=== PATIENT | male | born 1980 ===

== ENCOUNTER 2016-11-27 12:31 | Inpatient (IN) | payer OTHER ==
[2016-11-27 12:31] VITALS: PULSE 66
[2016-11-27 13:03] VITALS: BMI 20.7
[2016-11-27 14:08] LABS: BASO # 0.1 K/uL (0.0-0.2); BASO % 0.6 % (0.0-2.0); EOS # 0.5 K/uL (0.0-0.7); EOS % 4.3 % (0.0-4.0); HEMATOCRIT 30.4 % (35.0-51.0); LYMPH % 17.1 % (20.0-40.0); MEAN CELL VOLUME 87.9 fL (80.0-94.0); MEAN CORPUSCULAR HEMOGLOBIN 27.9 pg (27.0-31.0); MEAN CORPUSCULAR HGB CONC 31.8 g/dL (33.0-37.0); MEAN PLATELET VOLUME 8.5 fL (7.2-11.7); MONO # 0.5 K/uL (0.0-0.8); RED CELL DISTRIBUTION WIDTH 20.2 % (11.5-14.5)
[2016-11-27 14:21] LABS: ALB/GLOB RATIO 1.2 (1.0-2.1); BILIRUBIN,TOTAL 0.5 mg/dL (0.2-1.3); CALCIUM 10.8 mg/dl (8.6-10.4); TOTAL PROTEIN 7.5 g/dL (6.3-8.3)
[2016-11-27 14:24] LABS: POTASSIUM 6.2 mmol/L (3.6-5.2)
[2016-11-27] MEDS ORDERED: (Novolin R) Insulin Human Regular 100 units/ml vial IV STA (14:33)
[2016-11-27] MEDS ORDERED: Sod Polystyrene Sulf 15 gm/60 ml Oral Susp PO STA (14:34)
[2016-11-27] MEDS ORDERED: Sodium Bicarbonate (8.4%) 50 Meq Syringe IVP STA (14:35)
[2016-11-27] MEDS: Albuterol 0.083% Inhal Sol (2.5 mg/3 mL) UD INH SCH ×3 (15:00→15:20)
[2016-11-27] MEDS ORDERED: Albuterol 0.083% Inhal Sol (2.5 mg/3 mL) UD ONE (15:03)
[2016-11-27] MEDS ORDERED: Sod Polystyrene Sulf 15 gm/60 ml Oral Susp ONE (15:18)
[2016-11-27] MEDS ORDERED: Sodium Bicarbonate (8.4%) 50 Meq Syringe ONE (15:20)
[2016-11-27] MEDS ORDERED: (Novolin R) Insulin Human Regular 100 units/ml vial ONE (15:20)
--- NOTE | 2016-11-27 15:38 | RAD ---
PROCEDURE: CHEST RADIOGRAPH, 1 VIEW HISTORY: SOB, cough COMPARISON: 11/14/2016 FINDINGS: LUNGS: Clear. PLEURA: No pneumothorax or pleural fluid seen. CARDIOVASCULAR: Cardiomegaly. Congestive change. Interval CABG. Right central venous dialysis catheter now noted. OSSEOUS STRUCTURES: No significant abnormalities. VISUALIZED UPPER ABDOMEN: Normal. OTHER FINDINGS: None. IMPRESSION: Congestive change without kevan infiltrate or pleural effusion. Possible congestive failure versus fluid overload. The interval CABG and insertion of right central venous dialysis catheter since examination of 11/14/2016.
--- NOTE | 2016-11-27 16:16 | C.PDOC ---
Time Seen by Provider: 11/27/16 14:24 Chief Complaint (Nursing): Shortness Of Breath History Per: Patient Onset/Duration Of Symptoms: Days (1) Current Symptoms Are (Timing): Still Present Quality: Tightness Current Respiratory Medications: See Home Med List Severity: Moderate Associated Symptoms: Fever (?), Productive Cough Additional History Per: Prior Records Past Medical History Reviewed: Historical Data, Nursing Documentation, Vital Signs Vital Signs: Last Vital Signs Temp 97.9 F 11/27/16 12:51 Pulse 68 11/27/16 12:51 Resp 15 11/27/16 13:05 BP 199/63 H 11/27/16 12:51 Pulse Ox 100 11/27/16 13:05 - Medical History PMH: Anemia, Anxiety, Arthritis, Asthma, Atrial Fibrillation, Bronchitis, CAD, Cardia Arrhythmia, CHF, COPD, CVA, Depression, Diabetes, Deep Vein Thrombosis, Gastrointestinal Ulcer, Gall Bladder Disease, HTN, Hypercholesterolemia, Hyperthyroidism, Hypothyroidism, End Stage Renal Disease (on dialysis Sat// Sat.), Chronic Kidney Disease, Seizures Surgical History: CABG (12/2009), Cholecystectomy (2011), Coronary Stent (X3) - [facility] Procedures ABDOMINAL WALL SINOGRAM (12/31/13) C.A.T. SCAN OF ABDOMEN (10/31/13) CENTRAL VENOUS CATHETER PLACEMENT WITH GUIDANCE (02/10/15) DILATE R ANT TIB ART W DRUG-ELUT INTRALUM, PERC (08/12/15) DILATION OF LEFT FEMORAL ARTERY, PERCUTANEOUS APPROACH (07/04/16) DILATION OF RIGHT FEMORAL ARTERY, PERCUTANEOUS APPROACH (08/12/15) DILATION OF RIGHT POPLITEAL ARTERY, PERCUTANEOUS APPROACH (08/12/15) DX ULTRASOUND-HEART (01/05/13) ENTERAL INFUSION OF CONCENTRATED NUT. SUBSTANCES (06/28/13) EXCIS DEBRIDE OF WOUND, INFECT, OR BURN (08/03/14) EXTIRPATION OF MATTER FROM L FEM ART, PERC APPROACH (07/04/16) EXTIRPATION OF MATTER FROM R FEM ART, PERC APPROACH (08/12/15) EXTIRPATION OF MATTER FROM R POPL ART, PERC APPROACH (08/12/15) FLUOROSCOPY OF L LOW EXTREM ART USING L OSM CONTRAST (08/12/15) FLUOROSCOPY OF R LOW EXTREM ART USING L OSM CONTRAST (08/12/15) FREE SKIN GRAFT NEC (08/03/14) HEAD SOFT TISS X-RAY NEC (04/15/13) HEMODIALYSIS (04/28/15) INCIS W REM OF FORIEGN BODY OR DEV FROM SKIN & SUBCUT TISSUE (08/08/13) INSERTION OF INFUSION DEV INTO R SUBCLAV VEIN, PERC APPROACH (01/19/16) INTRODUCE OF OTH THROMBOLYTIC INTO PERIPH ART, PERC APPROACH (08/12/15) LAPAROSCOPIC CHOLECYSTECTOMY (09/21/13) LOC EXC LES METATAR/TAR (06/01/14) PACKED CELL TRANSFUSION (06/01/14) PERCUTAN LIVER ASPIRAT (12/31/13) PERFORMANCE OF URINARY FILTRATION, MULTIPLE (07/19/16) PERFORMANCE OF URINARY FILTRATION, SINGLE (11/06/16) SKIN & SUBQ INCISION NEC (10/24/14) TETANUS TOXOID ADMINIST (06/13/14) VENOUS CATHETERIZATION FOR RENAL DIALYSIS (08/08/13) VENOUS CATHETERIZATION NEC (04/30/13) Family History: States: Unknown Family Hx - Social History Hx Tobacco Use: No Hx Alcohol Use: No Hx Substance Use: No - Immunization History Hx Tetanus Toxoid Vaccination: Yes Hx Influenza Vaccination: Yes Hx Pneumococcal Vaccination: Yes Review Of Systems Except As Marked, All Systems Reviewed And Found Negative. Constitutional: Positive for: Fever Respiratory: Positive for: Cough, Shortness of Breath. Negative for: Hemoptysis Gastrointestinal: Negative for: Vomiting, Abdominal Pain Musculoskeletal: Negative for: Neck Pain Neurological: Negative for: Weakness, Numbness, Headache Physical Exam - Physical Exam Appears: Chronically Ill Skin: Normal Color, Warm, Dry Head: Atraumatic, Normacephalic Eye(s): bilateral: PERRL, EOMI Neck: Normal ROM, Supple Cardiovascular: Rhythm Regular Respiratory: Normal Breath Sounds, No Accessory Muscle Use Gastrointestinal/Abdominal: Soft, No Tenderness Back: No CVA Tenderness Extremity: Other (b/l BKA) Neurological/Psych: Oriented x3 ED Course And Treatment - Laboratory Results Result Diagrams: 11/27/16 14:02 11/27/16 14:02 Lab Interpretation: Abnormal Interpretation Of Abnormal: ESRD with hyperkalemia. Hyperglycemia. ECG: Interpreted By Me, Viewed By Me ECG Rhythm: Sinus Rhythm, Nonspecific Changes ECG Interpretation: Abnormal Interpretation Of ECG: LVH with strain pattern. Rate From EC O2 Sat by Pulse Oximetry: 100 Pulse Ox Interpretation: Normal - Radiology CXR: Viewed By Me, Read By Radiologist CXR Interpretation: Yes: Cardiomegaly, Other (Fluid overload) - Physician Consult Information Physician Contacted: Farooq De Los Santos Outcome Of Conversation: She will dialyze pt today. She recommended holding antibiotics until after dialysis. Progress - Interventions Interventions:: Observation, Oxygen - Medications Administered Inhaled nebulized: Beta-2 agonist Intravenous: Other (Insulin. Sodium bicarb. ) - Data Reviewed Data Reviewed: Lab, Diagnostic imaging, EKG, Old records - Patient Status Patient status: Partially improved - Critical Care Citical Care: Excluding Proc Time Critical Care Time: 45 minutes - Continuity of Care Discussed patient case with:: Patient, ED Nurse, PMD Discussed pt. case with compliance consultant/specialty: Nephrology - Patient Plan Patient Plan: Admission, Telemetry Disposition Discussed With : Sybil Li Comment: She accepted pt on her service. Doctor Will See Patient In The: Hospital - Disposition Disposition: HOSPITALIZED Disposition Time: 16:00 Condition: GUARDED - Clinical Impression Clinical Impression: Uncontrolled diabetes mellitus, Fluid overload, Hyperkalemia, Respiratory tract infection, ESRD needing dialysis
[2016-11-27] MEDS ORDERED: HYDROmorphone 1 mg/ml ISec IVP STA (16:49)
[2016-11-27] MEDS ORDERED: HYDROmorphone 1 mg/ml ISec ONE (16:52)
[2016-11-27] MEDS ORDERED: Home Med 1 UNIT (Atorvastatin [Lipitor] 20 MG) PO SCH (22:00)
[2016-11-27] MEDS: Insulin Detemir 100 units/ml Vial (Levemir) SC SCH (22:48)
[2016-11-27] MEDS: (Novolog) Insulin Aspart, Recombinant 100 u/ml 10 ml vial SC SCH (22:48)
[2016-11-28] MEDS ORDERED: (Novolog) Insulin Aspart, Recombinant 100 u/ml 10 ml vial SC ONE (02:30)
[2016-11-28] MEDS: Levothyroxine 50 MCG TAB PO SCH (05:49)
[2016-11-28] MEDS: (Novolog) Insulin Aspart, Recombinant 100 u/ml 10 ml vial SC SCH ×4 (07:19→21:42)
[2016-11-28] MEDS: Albuterol-Ipratrop 3 mg / 0.5 (3 ml) UD INH SCH ×4 (07:30→19:05)
[2016-11-28 08:10] LABS: CHLORIDE 95 mmol/L (98-107)
[2016-11-28 08:11] LABS: POTASSIUM 4.6 mmol/L (3.6-5.2); SODIUM 138 mmol/L (132-148)
[2016-11-28 08:13] LABS: BILIRUBIN,TOTAL 0.6 mg/dL (0.2-1.3); CARBON DIOXIDE 27 mmol/L (22-30); CHOLESTEROL 92 mg/dL (0-199); GFR AFRICAN-AMERICAN 23
[2016-11-28 08:14] LABS: ALB/GLOB RATIO 1.1 (1.0-2.1); ALKALINE PHOSPHATASE 164 U/L (38-126); AST/SGOT 46 U/L (17-59); BLOOD UREA NITROGEN 37 mg/dL (9-20); CALCIUM 9.1 mg/dl (8.6-10.4); GLUCOSE,RANDOM 92 mg/dL (75-110); TOTAL PROTEIN 6.7 g/dL (6.3-8.3)
[2016-11-28 08:15] LABS: ALT/SGPT < 6 U/L (21-72)
[2016-11-28] MEDS: HYDROmorphone 1 mg/ml ISec IVP PRN ×3 (10:24→22:35)
--- NOTE | 2016-11-28 10:47 | CARD ---
APPROVED REPORT EKG Measurement Heart [id number] <Conclusion> Normal sinus rhythm Left ventricular hypertrophy with QRS widening and repolarization abnormality Abnormal ECG
--- NOTE | 2016-11-28 11:46 | CP.PCM.CON ---
History of Present Illness - History of Present Illness History of Present Illness: 36 year old man with the following chronic medical conditions 1. Severe PVD - s/p bilateral BKA 2. Uncontrolled DM - insulin 3. HTN i- chronic 4. Severe CAD s/p CABG s/p PCI 5. Legal blindness 6. Klienfelters syndrome Presents to [facility] (formerly [facility]) with several days of increased shortness of breath. Past Patient History - Infectious Disease Hx of Infectious Diseases: MRSA - Tetanus Immunizations Tetanus Immunization: >10 years Ago - Past Medical History & Family History Past Medical History?: Yes - Past Social History Smoking Status: Never Smoked - CARDIAC Hx Cardiac Disorders: Yes Hx Atrial Fibrillation: Yes Hx Cardia Arrhythmia: Yes Hx Congestive Heart Failure: Yes Hx Hypercholesterolemia: Yes Hx Hypertension: Yes - PULMONARY Hx Respiratory Disorders: Yes Hx Asthma: Yes Hx Bronchitis: Yes Hx Chronic Obstructive Pulmonary Disease (COPD): Yes - NEUROLOGICAL Hx Alzheimer's Disease: Yes Hx Seizures: Yes - HEENT Hx HEENT Problems: Yes Hx Blind: Yes (legally blind) Hx Cataracts: Yes - RENAL Date of Last Dialysis Treatment: 11/27/16 - ENDOCRINE/METABOLIC Hx Endocrine Disorders: Yes Hx Diabetes Mellitus Type 2: Yes Hx Hyperthyroidism: Yes Hx Hypothyroidism: Yes - HEMATOLOGICAL/ONCOLOGICAL Hx Blood Disorders: Yes Hx Anemia: Yes - INTEGUMENTARY Hx Dermatological Problems: No - MUSCULOSKELETAL/RHEUMATOLOGICAL Hx Musculoskeletal Disorders: Yes Hx Arthritis: Yes Hx Falls: Yes - GASTROINTESTINAL Hx Gastrointestinal Disorders: Yes Hx Gall Bladder Disease: Yes - GENITOURINARY/GYNECOLOGICAL Hx Genitourinary Disorders: No Hx Sexually Transmitted Disorders: No - PSYCHIATRIC Hx Psychophysiologic Disorder: Yes Hx Anxiety: Yes Hx Depression: Yes Hx Substance Use: No - SURGICAL HISTORY Hx Surgeries: Yes Hx Cholecystectomy: Yes (2011) 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/2009) Hx Coronary Stent: Yes (X3) - ANESTHESIA Hx Anesthesia: Yes Hx Anesthesia Reactions: No Hx Malignant Hyperthermia: No Meds Allergies/Adverse Reactions: Allergies Allergy/AdvReac Type Severity Reaction Status Date / Time acetaminophen [From Percocet] Allergy RASH Verified 11/05/16 21:48 atenolol Allergy RASH Verified 11/05/16 21:48 digoxin Allergy RASH Verified 11/05/16 21:48 milk Allergy ITCHING Verified 11/27/16 21:08 morphine Allergy ITCHING Verified 11/05/16 21:48 oxycodone HCl [From Percocet] Allergy RASH Verified 11/05/16 21:48 - Medications Medications: Current Medications Albuterol/Ipratropium (Duoneb 3 Mg/0.5 Mg (3 Ml) Ud) 3 ml INH RQID [facility] Last Admin: 11/28/16 11:04 Dose: Not Given Amlodipine Besylate (Norvasc) 10 mg PO DAILY [facility] Last Admin: 11/28/16 10:24 Dose: 10 mg Aspirin (Aspirin Chewable) 81 mg PO DAILY [facility] Last Admin: 11/28/16 09:51 Dose: 81 mg Calcitriol (Rocaltrol) 0.25 mcg PO DAILY [facility] Last Admin: 11/28/16 09:50 Dose: 0.25 mcg Carvedilol (Coreg) 25 mg PO BID [facility] Last Admin: 11/28/16 09:51 Dose: 25 mg Clopidogrel Bisulfate (Plavix) 75 mg PO DAILY [facility] Last Admin: 11/28/16 09:51 Dose: 75 mg Epoetin Tom (Procrit) 8,000 unit SC TTS [facility] Famotidine (Pepcid) 20 mg PO DAILY [facility] Last Admin: 11/28/16 09:51 Dose: 20 mg Heparin Sodium (Porcine) (Heparin) 4,600 units IVP TTS [facility] Stop: 12/01/16 10:01 Last Admin: 11/27/16 19:47 Dose: 4,600 units Hydralazine HCl (Apresoline) 100 mg PO BID [facility] Last Admin: 11/28/16 09:51 Dose: 100 mg Hydromorphone HCl (Dilaudid) 1 mg IVP Q6H PRN PRN Reason: Pain, moderate (4-7) Last Admin: 11/28/16 10:24 Dose: 1 mg Insulin Aspart (Novolog) 0 unit SC ACHS [facility] PRN Reason: Protocol Last Admin: 11/28/16 11:38 Dose: Not Given Insulin Detemir (Levemir) 10 unit SC HS [facility] Last Admin: 11/27/16 22:48 Dose: 10 unit Isosorbide Mononitrate (Imdur) 60 mg PO DAILY [facility] Last Admin: 11/28/16 09:51 Dose: 60 mg Levothyroxine Sodium (Synthroid) 50 mcg PO DAILY@0630 [facility] Last Admin: 11/28/16 05:49 Dose: 50 mcg Rosuvastatin Calcium (Crestor) 10 mg PO HS [facility] Last Admin: 11/27/16 22:47 Dose: 10 mg Sertraline HCl (Zoloft) 50 mg PO DAILY [facility] Last Admin: 11/28/16 09:51 Dose: 50 mg Physical Exam - Constitutional Appears: Well, Non-toxic - Head Exam Head Exam: ATRAUMATIC - Eye Exam Eye Exam: absent: Scleral icterus (+Legal blindness) - ENT Exam ENT Exam: Mucous Membranes Moist, Normal External Ear Exam - Neck Exam Neck exam: Positive for: Full Rom. Negative for: Thyromegaly - Respiratory Exam Respiratory Exam: Clear to Auscultation Bilateral, NORMAL BREATHING PATTERN - Cardiovascular Exam Cardiovascular Exam: REGULAR RHYTHM, RRR, +S1, +S2, +S4, Systolic Murmur. absent: JVD - GI/Abdominal Exam GI & Abdominal Exam: Normal Bowel Sounds. absent: Organomegaly - Extremities Exam Additional comments: Bilateral BKA - Neurological Exam Neurological exam: Oriented x3 (Delayed affect) Results - Vital Signs Recent Vital Signs: Last Vital Signs Temp 97.9 F 11/28/16 09:06 Pulse 78 11/28/16 09:06 Resp 18 11/28/16 09:06 BP 185/73 H 11/28/16 09:51 Pulse Ox 98 11/28/16 09:06 - Labs Result Diagrams: 11/27/16 14:02 11/28/16 08:00 Labs: Laboratory Results - last 24 hr 11/27/16 11/27/16 11/27/16 17:00 19:18 22:10 Sodium Potassium Chloride Carbon Dioxide Anion Gap BUN Creatinine Est GFR ( Amer) Est GFR (Non-Af Amer) POC Glucose (mg/dL) 264 H 189 H 345 H Random Glucose Calcium Total Bilirubin AST ALT Alkaline Phosphatase Total Creatine Kinase CK-MB (Mass) Troponin I, Quant NT-Pro-B Natriuret Pep Total Protein Albumin Globulin Albumin/Globulin Ratio Triglycerides Cholesterol LDL Cholesterol Direct HDL Cholesterol 11/28/16 11/28/16 11/28/16 02:13 03:36 06:34 Sodium Potassium Chloride Carbon Dioxide Anion Gap BUN Creatinine Est GFR ( Amer) Est GFR (Non-Af Amer) POC Glucose (mg/dL) 410 H* 261 H 89 Random Glucose Calcium Total Bilirubin AST ALT Alkaline Phosphatase Total Creatine Kinase CK-MB (Mass) Troponin I, Quant NT-Pro-B Natriuret Pep Total Protein Albumin Globulin Albumin/Globulin Ratio Triglycerides Cholesterol LDL Cholesterol Direct HDL Cholesterol 11/28/16 11/28/16 08:00 11:01 Sodium 138 Potassium 4.6 Chloride 95 L Carbon Dioxide 27 Anion Gap 21 H BUN 37 H Creatinine 3.6 H Est GFR ( Amer) 23 Est GFR (Non-Af Amer) 19 POC Glucose (mg/dL) 154 H Random Glucose 92 Calcium 9.1 Total Bilirubin 0.6 AST 46 ALT < 6 L D Alkaline Phosphatase 164 H D Total Creatine Kinase < 20 L CK-MB (Mass) 0.27 Troponin I, Quant 0.0160 NT-Pro-B Natriuret Pep 33016 H Total Protein 6.7 Albumin 3.6 Globulin 3.1 Albumin/Globulin Ratio 1.1 Triglycerides 136 D Cholesterol 92 LDL Cholesterol Direct < 30 HDL Cholesterol 29 L - EKG Data EKG Interpreted by: Myself EKG shows normal: Sinus rhythm - Imaging and Cardiology Chest x-ray Status: Image reviewed by me (+Permcath, poor inspirtory effort, Vasc congestion ) Assessment & Plan - Assessment and Plan (Free Text) Assessment: 36 year old man with acute on chronic diastolic CHF ESRD HD Uncontrolled DM Severe coronary artery disease s/p CABG and then subsequent PCI of RCA, now all grafts including MOLINA are close there is no more revascularization options High dose statin and Dual anti platelet therpy Chronic angina stable in the past on nitrates, we have used ranexa successfully in the past Severe PVD s/p Bilateral BKA HTN is chornic and controlled with Coreg, norvasc - Date & Time Date: 11/28/16 Time: 11:43
--- NOTE | 2016-11-28 18:20 | CP.PCM.HP ---
History of Present Illness - History of Present Illness History of Present Illness: came [facility] for chest pain cugh sob and hi k Present on Admission - Present on Admission Any Indicators Present on Admission: Yes Review of Systems - Review of Systems Systems not reviewed;Unavailable: Acuity of Condition - Constitutional Constitutional: Fatigue - EENT Eyes: Blind Spots Ears: As Per HPI Nose/Mouth/Throat: As Per HPI - Cardiovascular Cardiovascular: Chest Pain, Dyspnea - Respiratory Respiratory: Cough, Dyspnea, Wheezing - Gastrointestinal Gastrointestinal: As Per HPI - Genitourinary Genitourinary: As Per HPI - Reproductive: Male Reproductive:Male: As Per HPI - Musculoskeletal Additional comments: s/p javier amputation - Integumentary Integumentary: As Per HPI - Neurological Neurological: Sensory Deficit - Psychiatric Psychiatric: Depression - Endocrine Endocrine: Fatigue - Hematologic/Lymphatic Hematologic: As Per HPI Past Patient History - Infectious Disease Hx of Infectious Diseases: MRSA - Tetanus Immunizations Tetanus Immunization: >10 years Ago - Past Medical History & Family History Past Medical History?: Yes - Past Social History Smoking Status: Never Smoked - CARDIAC Hx Cardiac Disorders: Yes Hx Atrial Fibrillation: Yes Hx Cardia Arrhythmia: Yes Hx Congestive Heart Failure: Yes Hx Hypercholesterolemia: Yes Hx Hypertension: Yes - PULMONARY Hx Respiratory Disorders: Yes Hx Asthma: Yes Hx Bronchitis: Yes Hx Chronic Obstructive Pulmonary Disease (COPD): Yes - NEUROLOGICAL Hx Alzheimer's Disease: Yes Hx Seizures: Yes - HEENT Hx HEENT Problems: Yes Hx Blind: Yes (legally blind) Hx Cataracts: Yes - RENAL Date of Last Dialysis Treatment: 11/27/16 - ENDOCRINE/METABOLIC Hx Endocrine Disorders: Yes Hx Diabetes Mellitus Type 2: Yes Hx Hyperthyroidism: Yes Hx Hypothyroidism: Yes - HEMATOLOGICAL/ONCOLOGICAL Hx Blood Disorders: Yes Hx Anemia: Yes - INTEGUMENTARY Hx Dermatological Problems: No - MUSCULOSKELETAL/RHEUMATOLOGICAL Hx Musculoskeletal Disorders: Yes Hx Arthritis: Yes Hx Falls: Yes - GASTROINTESTINAL Hx Gastrointestinal Disorders: Yes Hx Gall Bladder Disease: Yes - GENITOURINARY/GYNECOLOGICAL Hx Genitourinary Disorders: No Hx Sexually Transmitted Disorders: No - PSYCHIATRIC Hx Psychophysiologic Disorder: Yes Hx Anxiety: Yes Hx Depression: Yes Hx Substance Use: No - SURGICAL HISTORY Hx Surgeries: Yes Hx Cholecystectomy: Yes (2011) 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/2009) Hx Coronary Stent: Yes (X3) - ANESTHESIA Hx Anesthesia: Yes Hx Anesthesia Reactions: No Hx Malignant Hyperthermia: No Meds Allergies/Adverse Reactions: Allergies Allergy/AdvReac Type Severity Reaction Status Date / Time acetaminophen [From Percocet] Allergy RASH Verified 11/05/16 21:48 atenolol Allergy RASH Verified 11/05/16 21:48 digoxin Allergy RASH Verified 11/05/16 21:48 milk Allergy ITCHING Verified 11/27/16 21:08 morphine Allergy ITCHING Verified 11/05/16 21:48 oxycodone HCl [From Percocet] Allergy RASH Verified 11/05/16 21:48 Physical Exam - Constitutional Appears: Non-toxic - Head Exam Head Exam: NORMAL INSPECTION - Eye Exam Eye Exam: Conjunctival injection Additional comments: legaly blind - ENT Exam ENT Exam: Mucous Membranes Dry - Neck Exam Neck exam: Positive for: Normal Inspection - Respiratory Exam Respiratory Exam: Decreased Breath Sounds, Rales - Cardiovascular Exam Cardiovascular Exam: REGULAR RHYTHM - GI/Abdominal Exam GI & Abdominal Exam: Normal Bowel Sounds - Rectal Exam Rectal Exam: NORMAL INSPECTION - Extremities Exam Additional comments: javier amputation - Back Exam Back exam: CVA tenderness (L) - Neurological Exam Neurological exam: Oriented x3 - Psychiatric Exam Psychiatric exam: Normal Mood - Skin Skin Exam: Dry Results - Vital Signs Recent Vital Signs: Last Vital Signs Temp 98.0 F 11/28/16 17:16 Pulse 74 11/28/16 17:16 Resp 20 11/28/16 17:16 BP 123/84 11/28/16 17:48 Pulse Ox 96 11/28/16 17:16 - Labs Result Diagrams: 11/27/16 14:02 11/28/16 08:00 Labs: Laboratory Results - last 24 hr 11/27/16 11/27/16 11/28/16 19:18 22:10 02:13 Sodium Potassium Chloride Carbon Dioxide Anion Gap BUN Creatinine Est GFR ( Amer) Est GFR (Non-Af Amer) POC Glucose (mg/dL) 189 H 345 H 410 H* Random Glucose Calcium Total Bilirubin AST ALT Alkaline Phosphatase Total Creatine Kinase CK-MB (Mass) Troponin I, Quant NT-Pro-B Natriuret Pep Total Protein Albumin Globulin Albumin/Globulin Ratio Triglycerides Cholesterol LDL Cholesterol Direct HDL Cholesterol 11/28/16 11/28/16 11/28/16 03:36 06:34 08:00 Sodium 138 Potassium 4.6 Chloride 95 L Carbon Dioxide 27 Anion Gap 21 H BUN 37 H Creatinine 3.6 H Est GFR ( Amer) 23 Est GFR (Non-Af Amer) 19 POC Glucose (mg/dL) 261 H 89 Random Glucose 92 Calcium 9.1 Total Bilirubin 0.6 AST 46 ALT < 6 L D Alkaline Phosphatase 164 H D Total Creatine Kinase < 20 L CK-MB (Mass) 0.27 Troponin I, Quant 0.0160 NT-Pro-B Natriuret Pep 10372 H Total Protein 6.7 Albumin 3.6 Globulin 3.1 Albumin/Globulin Ratio 1.1 Triglycerides 136 D Cholesterol 92 LDL Cholesterol Direct < 30 HDL Cholesterol 29 L 11/28/16 11/28/16 11:01 17:12 Sodium Potassium Chloride Carbon Dioxide Anion Gap BUN Creatinine Est GFR ( Amer) Est GFR (Non-Af Amer) POC Glucose (mg/dL) 154 H 164 H Random Glucose Calcium Total Bilirubin AST ALT Alkaline Phosphatase Total Creatine Kinase CK-MB (Mass) Troponin I, Quant NT-Pro-B Natriuret Pep Total Protein Albumin Globulin Albumin/Globulin Ratio Triglycerides Cholesterol LDL Cholesterol Direct HDL Cholesterol Assessment & Plan - Assessment and Plan (Free Text) Assessment: dm hyperkaleamia chf cad esrf Plan: as per orders - Date & Time Date: 11/28/16 Time: 18:23
--- NOTE | 2016-11-28 18:33 | CP.PCM.CON ---
History of Present Illness - History of Present Illness History of Present Illness: 36 y/o male with ESRD on HD on TTS, CAD,CABG,IDDM,PVD seizures Is admitted for sob & volume overload. CXR in ER showed CHF. Was given dialysis yesterday with improvement in Sm Past Patient History - Infectious Disease Hx of Infectious Diseases: MRSA - Tetanus Immunizations Tetanus Immunization: >10 years Ago - Past Medical History & Family History Past Medical History?: Yes - Past Social History Smoking Status: Never Smoked - CARDIAC Hx Cardiac Disorders: Yes Hx Atrial Fibrillation: Yes Hx Cardia Arrhythmia: Yes Hx Congestive Heart Failure: Yes Hx Hypercholesterolemia: Yes Hx Hypertension: Yes - PULMONARY Hx Respiratory Disorders: Yes Hx Asthma: Yes Hx Bronchitis: Yes Hx Chronic Obstructive Pulmonary Disease (COPD): Yes - NEUROLOGICAL Hx Alzheimer's Disease: Yes Hx Seizures: Yes - HEENT Hx HEENT Problems: Yes Hx Blind: Yes (legally blind) Hx Cataracts: Yes - RENAL Date of Last Dialysis Treatment: 11/27/16 - ENDOCRINE/METABOLIC Hx Endocrine Disorders: Yes Hx Diabetes Mellitus Type 2: Yes Hx Hyperthyroidism: Yes Hx Hypothyroidism: Yes - HEMATOLOGICAL/ONCOLOGICAL Hx Blood Disorders: Yes Hx Anemia: Yes - INTEGUMENTARY Hx Dermatological Problems: No - MUSCULOSKELETAL/RHEUMATOLOGICAL Hx Musculoskeletal Disorders: Yes Hx Arthritis: Yes Hx Falls: Yes - GASTROINTESTINAL Hx Gastrointestinal Disorders: Yes Hx Gall Bladder Disease: Yes - GENITOURINARY/GYNECOLOGICAL Hx Genitourinary Disorders: No Hx Sexually Transmitted Disorders: No - PSYCHIATRIC Hx Psychophysiologic Disorder: Yes Hx Anxiety: Yes Hx Depression: Yes Hx Substance Use: No - SURGICAL HISTORY Hx Surgeries: Yes Hx Cholecystectomy: Yes (2011) 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/2009) Hx Coronary Stent: Yes (X3) - ANESTHESIA Hx Anesthesia: Yes Hx Anesthesia Reactions: No Hx Malignant Hyperthermia: No Meds Allergies/Adverse Reactions: Allergies Allergy/AdvReac Type Severity Reaction Status Date / Time acetaminophen [From Percocet] Allergy RASH Verified 11/05/16 21:48 atenolol Allergy RASH Verified 11/05/16 21:48 digoxin Allergy RASH Verified 11/05/16 21:48 milk Allergy ITCHING Verified 11/27/16 21:08 morphine Allergy ITCHING Verified 11/05/16 21:48 oxycodone HCl [From Percocet] Allergy RASH Verified 11/05/16 21:48 - Medications Medications: Current Medications Albuterol/Ipratropium (Duoneb 3 Mg/0.5 Mg (3 Ml) Ud) 3 ml INH RQID REPLACED BY [facility] Last Admin: 11/28/16 11:04 Dose: Not Given Amlodipine Besylate (Norvasc) 10 mg PO DAILY [facility]PL[facility] BY [facility] Last Admin: 11/28/16 10:24 Dose: 10 mg Aspirin (Aspirin Chewable) 81 mg PO DAILY [facility] BY [facility] Last Admin: 11/28/16 09:51 Dose: 81 mg Calcitriol (Rocaltrol) 0.25 mcg PO DAILY [facility]PL[facility] BY [facility] Last Admin: 11/28/16 09:50 Dose: 0.25 mcg Carvedilol (Coreg) 25 mg PO BID REPL[facility]ED BY [facility] Last Admin: 11/28/16 17:48 Dose: 25 mg Clopidogrel Bisulfate (Plavix) 75 mg PO DAILY [facility]PL[facility] BY [facility] Last Admin: 11/28/16 09:51 Dose: 75 mg Epoetin Tom (Procrit) 8,000 unit SC TTS REPLACED BY [facility] Famotidine (Pepcid) 20 mg PO DAILY REPL[facility]ED BY [facility] Last Admin: 11/28/16 09:51 Dose: 20 mg Heparin Sodium (Porcine) (Heparin) 4,600 units IVP TTS REPLACED BY [facility] Stop: 12/01/16 10:01 Last Admin: 11/27/16 19:47 Dose: 4,600 units Heparin Sodium (Porcine) (Heparin) 5,000 units SC Q12 REPLACED BY [facility] Hydralazine HCl (Apresoline) 100 mg PO BID REPLACED BY [facility] Last Admin: 11/28/16 17:48 Dose: 100 mg Hydromorphone HCl (Dilaudid) 1 mg IVP Q6H PRN PRN Reason: Pain, moderate (4-7) Last Admin: 11/28/16 15:43 Dose: 1 mg Insulin Aspart (Novolog) [address] [facility] REPLACED BY [facility] PRN Reason: Protocol Last Admin: 11/28/16 17:41 Dose: 2 unit Insulin Detemir (Levemir) 10 unit SC HS REPLACED BY [facility] Last Admin: 11/27/16 22:48 Dose: 10 unit Isosorbide Mononitrate (Imdur) 60 mg PO DAILY REPLACED BY [facility] Last Admin: 11/28/16 09:51 Dose: 60 mg Levothyroxine Sodium (Synthroid) 50 mcg PO DAILY@0630 REPLACED BY [facility] Last Admin: 11/28/16 05:49 Dose: 50 mcg Rosuvastatin Calcium (Crestor) 10 mg PO [facility] Last Admin: 11/27/16 22:47 Dose: 10 mg Sertraline HCl (Zoloft) 50 mg PO DAILY REPL[facility] BY [facility] Last Admin: 11/28/16 09:51 Dose: 50 mg Physical Exam - Constitutional Appears: No Acute Distress - Head Exam Head Exam: ATRAUMATIC, NORMOCEPHALIC - Eye Exam Additional comments: No icterus - ENT Exam ENT Exam: Mucous Membranes Moist - Respiratory Exam Additional comments: Lungs clear - Cardiovascular Exam Cardiovascular Exam: REGULAR RHYTHM - GI/Abdominal Exam GI & Abdominal Exam: Soft Additional comments: Nontender - Extremities Exam Additional comments: B/L BKA Results - Vital Signs Recent Vital Signs: Last Vital Signs Temp 98.0 F 11/28/16 17:16 Pulse 74 11/28/16 17:16 Resp 20 11/28/16 17:16 BP 123/84 11/28/16 17:48 Pulse Ox 96 11/28/16 17:16 - Labs Result Diagrams: 11/27/16 14:02 11/28/16 08:00 Labs: Laboratory Results - last 24 hr 11/27/16 11/27/16 11/28/16 19:18 22:10 02:13 Sodium Potassium Chloride Carbon Dioxide Anion Gap BUN Creatinine Est GFR ( Amer) Est GFR (Non-Af Amer) POC Glucose (mg/dL) 189 H 345 H 410 H* Random Glucose Calcium Total Bilirubin AST ALT Alkaline Phosphatase Total Creatine Kinase CK-MB (Mass) Troponin I, Quant NT-Pro-B Natriuret Pep Total Protein Albumin Globulin Albumin/Globulin Ratio Triglycerides Cholesterol LDL Cholesterol Direct HDL Cholesterol 11/28/16 11/28/16 11/28/16 03:36 06:34 08:00 Sodium 138 Potassium 4.6 Chloride 95 L Carbon Dioxide 27 Anion Gap 21 H BUN 37 H Creatinine 3.6 H Est GFR ( Amer) 23 Est GFR (Non-Af Amer) 19 POC Glucose (mg/dL) 261 H 89 Random Glucose 92 Calcium 9.1 Total Bilirubin 0.6 AST 46 ALT < 6 L D Alkaline Phosphatase 164 H D Total Creatine Kinase < 20 L CK-MB (Mass) 0.27 Troponin I, Quant 0.0160 NT-Pro-B Natriuret Pep 95149 H Total Protein 6.7 Albumin 3.6 Globulin 3.1 Albumin/Globulin Ratio 1.1 Triglycerides 136 D Cholesterol 92 LDL Cholesterol Direct < 30 HDL Cholesterol 29 L 11/28/16 11/28/16 11:01 17:12 Sodium Potassium Chloride Carbon Dioxide Anion Gap BUN Creatinine Est GFR ( Amer) Est GFR (Non-Af Amer) POC Glucose (mg/dL) 154 H 164 H Random Glucose Calcium Total Bilirubin AST ALT Alkaline Phosphatase Total Creatine Kinase CK-MB (Mass) Troponin I, Quant NT-Pro-B Natriuret Pep Total Protein Albumin Globulin Albumin/Globulin Ratio Triglycerides Cholesterol LDL Cholesterol Direct HDL Cholesterol Assessment & Plan - Assessment and Plan (Free Text) Assessment: ESRD CHF/volume overload HTN CAD,IDDM,PVD Plan: Pt received extra dialysis with additional UF of 3 Kg. Feels better now Cont HD TTS
[2016-11-28] MEDS: Insulin Detemir 100 units/ml Vial (Levemir) SC SCH (21:33)
[2016-11-29] MEDS: HYDROmorphone 1 mg/ml ISec IVP PRN ×4 (04:50→23:00)
[2016-11-29] MEDS: Levothyroxine 50 MCG TAB PO SCH (05:57)
[2016-11-29] MEDS: (Novolog) Insulin Aspart, Recombinant 100 u/ml 10 ml vial SC SCH ×4 (08:10→22:28)
[2016-11-29] MEDS: Albuterol-Ipratrop 3 mg / 0.5 (3 ml) UD INH SCH ×3 (08:57→16:53)
[2016-11-29] MEDS ORDERED: Epoetin Alfa 4000 UNIT/ML Inj SC SCH (10:00)
--- NOTE | 2016-11-29 11:18 | CP.PCM.PN ---
Subjective - Date & Time of Evaluation Date of Evaluation: 11/29/16 Time of Evaluation: 10:30 - Subjective Subjective: Currently on dialysis sedated. NAD BP 168/74 Objective - Vital Signs/Intake and Output Vital Signs (last 24 hours): Temp Pulse Resp BP Pulse Ox 98 F 79 20 164/88 H 100 11/29/16 09:15 11/29/16 09:05 11/29/16 09:05 11/29/16 10:50 11/29/16 09:15 Intake and Output: 11/29/16 11/29/16 06:59 18:59 Intake Total 630 Balance 630 - Medications Medications: Current Medications Albuterol/Ipratropium (Duoneb 3 Mg/0.5 Mg (3 Ml) Ud) 3 ml INH RQID [facility] Last Admin: 11/29/16 08:57 Dose: Not Given Amlodipine Besylate (Norvasc) 10 mg PO DAILY [facility] Last Admin: 11/28/16 10:24 Dose: 10 mg Aspirin (Aspirin Chewable) 81 mg PO DAILY [facility] Last Admin: 11/28/16 09:51 Dose: 81 mg Calcitriol (Rocaltrol) 0.25 mcg PO DAILY [facility] Last Admin: 11/28/16 09:50 Dose: 0.25 mcg Carvedilol (Coreg) 25 mg PO BID [facility] Last Admin: 11/28/16 17:48 Dose: 25 mg Clopidogrel Bisulfate (Plavix) 75 mg PO DAILY [facility] Last Admin: 11/28/16 09:51 Dose: 75 mg Epoetin Tom (Procrit) 8,000 unit SC TTS [facility] Famotidine (Pepcid) 20 mg PO DAILY [facility] Last Admin: 11/28/16 09:51 Dose: 20 mg Heparin Sodium (Porcine) (Heparin) 4,600 units IVP TTS [facility] Stop: 12/01/16 10:01 Last Admin: 11/27/16 19:47 Dose: 4,600 units Heparin Sodium (Porcine) (Heparin) 5,000 units SC Q12 [facility] Last Admin: 11/28/16 21:34 Dose: 5,000 units Hydralazine HCl (Apresoline) 100 mg PO BID [facility] Last Admin: 11/28/16 17:48 Dose: 100 mg Hydromorphone HCl (Dilaudid) 1 mg IVP Q6H PRN PRN Reason: Pain, moderate (4-7) Last Admin: 11/29/16 10:39 Dose: 1 mg Insulin Aspart (Novolog) 0 unit SC [facility] PRN Reason: Protocol Last Admin: 11/29/16 08:10 Dose: 3 unit Insulin Detemir (Levemir) 10 unit SC [facility] Last Admin: 11/28/16 21:33 Dose: 10 unit Isosorbide Mononitrate (Imdur) 60 mg PO DAILY [facility] Last Admin: 11/28/16 09:51 Dose: 60 mg Levothyroxine Sodium (Synthroid) 50 mcg PO DAILY@0630 [facility] Last Admin: 11/29/16 05:57 Dose: 50 mcg Rosuvastatin Calcium (Crestor) 10 mg PO [facility] Last Admin: 11/28/16 21:33 Dose: 10 mg Sertraline HCl (Zoloft) 50 mg PO DAILY [facility] Last Admin: 11/28/16 09:51 Dose: 50 mg - Labs Labs: 11/28/16 08:00 - Respiratory Exam Additional comments: Lungs clear - Cardiovascular Exam Cardiovascular Exam: REGULAR RHYTHM - Extremities Exam Additional comments: B/L BKA Assessment and Plan - Assessment and Plan (Free Text) Assessment: ESRD on HD Volume overload improving HTN improving CAD,IDDNM,PVD Plan: Continue HD TTS UF goal today + 3.5 Kg. Tolerating well
[2016-11-29] MEDS ORDERED: DiphenhydrAMINE 50 mg/ml Inj IVP STA (12:01)
--- NOTE | 2016-11-29 19:52 | CP.PCM.PN ---
Subjective - Date & Time of Evaluation Date of Evaluation: 11/29/16 Time of Evaluation: 19:49 - Subjective Subjective: chest pain on and off sob Objective - Vital Signs/Intake and Output Vital Signs (last 24 hours): Temp Pulse Resp BP Pulse Ox 98 F 82 19 107/64 99 11/29/16 15:43 11/29/16 15:43 11/29/16 15:43 11/29/16 18:41 11/29/16 15:43 - Medications Medications: Current Medications Albuterol/Ipratropium (Duoneb 3 Mg/0.5 Mg (3 Ml) Ud) 3 ml INH RQID [facility] Last Admin: 11/29/16 16:53 Dose: Not Given Amlodipine Besylate (Norvasc) 10 mg PO DAILY [facility] Last Admin: 11/29/16 13:32 Dose: 10 mg Aspirin (Aspirin Chewable) 81 mg PO DAILY [facility] Last Admin: 11/29/16 13:31 Dose: 81 mg Calcitriol (Rocaltrol) 0.25 mcg PO DAILY [facility] Last Admin: 11/29/16 13:32 Dose: Not Given Carvedilol (Coreg) 25 mg PO BID [facility] Last Admin: 11/29/16 18:41 Dose: 25 mg Clopidogrel Bisulfate (Plavix) 75 mg PO DAILY [facility] Last Admin: 11/29/16 13:32 Dose: 75 mg Epoetin Tom (Procrit) 8,000 unit SC TTS [facility] Famotidine (Pepcid) 20 mg PO DAILY [facility] Last Admin: 11/29/16 13:32 Dose: 20 mg Heparin Sodium (Porcine) (Heparin) 4,600 units IVP TTS [facility] Stop: 12/01/16 10:01 Last Admin: 11/27/16 19:47 Dose: 4,600 units Heparin Sodium (Porcine) (Heparin) 5,000 units SC Q12 [facility] Last Admin: 11/29/16 13:31 Dose: Not Given Hydralazine HCl (Apresoline) 100 mg PO BID [facility] Last Admin: 11/29/16 18:38 Dose: Not Given Hydromorphone HCl (Dilaudid) 1 mg IVP Q6H PRN PRN Reason: Pain, moderate (4-7) Last Admin: 11/29/16 16:44 Dose: 1 mg Insulin Aspart (Novolog) 0 unit SC ACHS [facility] PRN Reason: Protocol Last Admin: 11/29/16 16:49 Dose: 4 unit Insulin Detemir (Levemir) 10 unit SC [facility] Last Admin: 11/28/16 21:33 Dose: 10 unit Isosorbide Mononitrate (Imdur) 60 mg PO DAILY [facility] Last Admin: 11/29/16 13:32 Dose: 60 mg Levothyroxine Sodium (Synthroid) 50 mcg PO DAILY@0630 [facility] Last Admin: 11/29/16 05:57 Dose: 50 mcg Rosuvastatin Calcium (Crestor) 10 mg PO [facility] Last Admin: 11/28/16 21:33 Dose: 10 mg Sertraline HCl (Zoloft) 50 mg PO DAILY [facility] Last Admin: 11/29/16 13:33 Dose: 50 mg - Labs Labs: 11/28/16 08:00 - Constitutional Appears: Non-toxic - Head Exam Head Exam: ATRAUMATIC - ENT Exam ENT Exam: Normal External Ear Exam - Neck Exam Neck Exam: Full ROM - Respiratory Exam Respiratory Exam: Decreased Breath Sounds - Cardiovascular Exam Cardiovascular Exam: REGULAR RHYTHM - GI/Abdominal Exam GI & Abdominal Exam: Normal Bowel Sounds - Rectal Exam Rectal Exam: NORMAL INSPECTION - Exam Exam: NORMAL INSPECTION - Extremities Exam Additional comments: javier ampuation - Neurological Exam Neurological Exam: Oriented x3 - Psychiatric Exam Psychiatric exam: Normal Affect - Skin Skin Exam: Normal Color Assessment and Plan - Assessment and Plan (Free Text) Assessment: chf ESRFcadCP htn DMID Plan: CONT PER ORDERS
[2016-11-29] MEDS: Insulin Detemir 100 units/ml Vial (Levemir) SC SCH (22:17)
[2016-11-30 01:39] VITALS: O2SAT 100
[2016-11-30] MEDS: HYDROmorphone 1 mg/ml ISec IVP PRN ×4 (05:02→21:27)
[2016-11-30] MEDS: Levothyroxine 50 MCG TAB PO SCH (05:48)
[2016-11-30] MEDS: (Novolog) Insulin Aspart, Recombinant 100 u/ml 10 ml vial SC SCH ×4 (07:57→21:46)
[2016-11-30] MEDS: Albuterol-Ipratrop 3 mg / 0.5 (3 ml) UD INH SCH ×3 (08:40→16:27)
[2016-11-30] MEDS ORDERED: Pneumococcal 23-Valent Vaccine IM ONE (10:00)
--- NOTE | 2016-11-30 10:41 | CP.PCM.PN ---
Subjective - Date & Time of Evaluation Date of Evaluation: 11/30/16 Time of Evaluation: 10:38 - Subjective Subjective: pt still sob no chest pain Objective - Vital Signs/Intake and Output Vital Signs (last 24 hours): Temp Pulse Resp BP Pulse Ox 98.1 F 78 20 129/77 100 11/30/16 08:14 11/30/16 08:14 11/30/16 08:14 11/30/16 09:47 11/30/16 08:14 Intake and Output: 11/30/16 11/30/16 06:59 18:59 Intake Total 150 Balance 150 - Medications Medications: Current Medications Albuterol/Ipratropium (Duoneb 3 Mg/0.5 Mg (3 Ml) Ud) 3 ml INH RQID [facility] Last Admin: 11/30/16 08:40 Dose: 3 ml Amlodipine Besylate (Norvasc) 10 mg PO DAILY [facility] Last Admin: 11/30/16 09:48 Dose: 10 mg Aspirin (Aspirin Chewable) 81 mg PO DAILY [facility] Last Admin: 11/30/16 09:47 Dose: 81 mg Calcitriol (Rocaltrol) 0.25 mcg PO DAILY [facility] Last Admin: 11/30/16 09:48 Dose: 0.25 mcg Carvedilol (Coreg) 25 mg PO BID [facility] Last Admin: 11/30/16 09:47 Dose: 25 mg Clopidogrel Bisulfate (Plavix) 75 mg PO DAILY [facility] Last Admin: 11/30/16 09:48 Dose: 75 mg Epoetin Tom (Procrit) 8,000 unit SC TTS [facility] Famotidine (Pepcid) 20 mg PO DAILY [facility] Last Admin: 11/30/16 09:48 Dose: 20 mg Heparin Sodium (Porcine) (Heparin) 4,600 units IVP TTS [facility] Stop: 12/01/16 10:01 Last Admin: 11/27/16 19:47 Dose: 4,600 units Heparin Sodium (Porcine) (Heparin) 5,000 units SC Q12 [facility] Last Admin: 11/30/16 09:48 Dose: 5,000 units Hydralazine HCl (Apresoline) 100 mg PO BID [facility] Last Admin: 11/30/16 09:45 Dose: 100 mg Hydromorphone HCl (Dilaudid) 1 mg IVP Q6H PRN PRN Reason: Pain, moderate (4-7) Last Admin: 11/30/16 10:20 Dose: 1 mg Insulin Aspart (Novolog) 0 unit SC [facility] PRN Reason: Protocol Last Admin: 11/30/16 07:57 Dose: Not Given Insulin Detemir (Levemir) 10 unit SC [facility] Last Admin: 11/29/16 22:17 Dose: 10 unit Isosorbide Mononitrate (Imdur) 60 mg PO DAILY [facility] Last Admin: 11/30/16 09:48 Dose: 60 mg Levothyroxine Sodium (Synthroid) 50 mcg PO DAILY@0630 [facility] Last Admin: 11/30/16 05:48 Dose: 50 mcg Rosuvastatin Calcium (Crestor) 10 mg PO [facility] Last Admin: 11/29/16 22:17 Dose: 10 mg Sertraline HCl (Zoloft) 50 mg PO DAILY [facility] Last Admin: 11/30/16 09:48 Dose: 50 mg - Labs Labs: 11/28/16 08:00 - Constitutional Appears: Non-toxic - Head Exam Head Exam: NORMAL INSPECTION - Eye Exam Eye Exam: Normal appearance Additional comments: amanda vision - ENT Exam ENT Exam: Normal External Ear Exam - Neck Exam Neck Exam: Full ROM - Respiratory Exam Respiratory Exam: Decreased Breath Sounds, Rales - Cardiovascular Exam Cardiovascular Exam: REGULAR RHYTHM - GI/Abdominal Exam GI & Abdominal Exam: Normal Bowel Sounds - Rectal Exam Rectal Exam: NORMAL INSPECTION - Extremities Exam Additional comments: bilateral amputation - Back Exam Back Exam: CVA tenderness (R) - Psychiatric Exam Psychiatric exam: Normal Affect - Skin Skin Exam: Normal Color Assessment and Plan - Assessment and Plan (Free Text) Assessment: CHF ESRF CAD DMID Plan: CONT CURENT TREATMENT [facility]
--- NOTE | 2016-11-30 13:38 | CP.PCM.PN ---
Subjective - Date & Time of Evaluation Date of Evaluation: 11/30/16 Time of Evaluation: 09:00 - Subjective Subjective: Feels better. Sitting up in bed Objective - Vital Signs/Intake and Output Vital Signs (last 24 hours): Temp Pulse Resp BP Pulse Ox 98.1 F 78 20 129/77 100 11/30/16 08:14 11/30/16 08:14 11/30/16 08:14 11/30/16 09:47 11/30/16 08:14 Intake and Output: 11/30/16 11/30/16 06:59 18:59 Intake Total 150 Balance 150 - Medications Medications: Current Medications Albuterol/Ipratropium (Duoneb 3 Mg/0.5 Mg (3 Ml) Ud) 3 ml INH RQID [facility] Last Admin: 11/30/16 11:12 Dose: 3 ml Amlodipine Besylate (Norvasc) 10 mg PO DAILY [facility] Last Admin: 11/30/16 09:48 Dose: 10 mg Aspirin (Aspirin Chewable) 81 mg PO DAILY [facility] Last Admin: 11/30/16 09:47 Dose: 81 mg Calcitriol (Rocaltrol) 0.25 mcg PO DAILY [facility] Last Admin: 11/30/16 09:48 Dose: 0.25 mcg Carvedilol (Coreg) 25 mg PO BID [facility] Last Admin: 11/30/16 09:47 Dose: 25 mg Clopidogrel Bisulfate (Plavix) 75 mg PO DAILY [facility] Last Admin: 11/30/16 09:48 Dose: 75 mg Epoetin Tom (Procrit) 8,000 unit SC TTS [facility] Famotidine (Pepcid) 20 mg PO DAILY [facility] Last Admin: 11/30/16 09:48 Dose: 20 mg Heparin Sodium (Porcine) (Heparin) 4,600 units IVP TTS [facility] Stop: 12/01/16 10:01 Last Admin: 11/27/16 19:47 Dose: 4,600 units Heparin Sodium (Porcine) (Heparin) 5,000 units SC Q12 [facility] Last Admin: 11/30/16 09:48 Dose: 5,000 units Hydralazine HCl (Apresoline) 100 mg PO BID [facility] Last Admin: 11/30/16 09:45 Dose: 100 mg Hydromorphone HCl (Dilaudid) 1 mg IVP Q6H PRN PRN Reason: Pain, moderate (4-7) Last Admin: 11/30/16 10:20 Dose: 1 mg Insulin Aspart (Novolog) 0 unit SC [facility] PRN Reason: Protocol Last Admin: 11/30/16 12:27 Dose: 3 unit Insulin Detemir (Levemir) 10 unit SC [facility] Last Admin: 11/29/16 22:17 Dose: 10 unit Isosorbide Mononitrate (Imdur) 60 mg PO DAILY [facility] Last Admin: 11/30/16 09:48 Dose: 60 mg Levothyroxine Sodium (Synthroid) 50 mcg PO DAILY@0630 [facility] Last Admin: 11/30/16 05:48 Dose: 50 mcg Rosuvastatin Calcium (Crestor) 10 mg PO [facility] Last Admin: 11/29/16 22:17 Dose: 10 mg Sertraline HCl (Zoloft) 50 mg PO DAILY [facility] Last Admin: 11/30/16 09:48 Dose: 50 mg - Labs Labs: 11/28/16 08:00 - Respiratory Exam Additional comments: Lungs clear - Cardiovascular Exam Cardiovascular Exam: REGULAR RHYTHM - Extremities Exam Additional comments: B/L BKA Assessment and Plan - Assessment and Plan (Free Text) Assessment: ESRD Volume overload corrected HTN improving CAD IDDM Plan: For HD tomorrow Labs stable
[2016-11-30] MEDS: Insulin Detemir 100 units/ml Vial (Levemir) SC SCH (21:42)
[2016-12-01] MEDS: HYDROmorphone 1 mg/ml ISec IVP PRN ×3 (03:50→16:01)
[2016-12-01] MEDS: Levothyroxine 50 MCG TAB PO SCH (05:34)
[2016-12-01 06:44] LABS: HEMATOCRIT 32.4 % (35.0-51.0); MEAN CELL VOLUME 88.6 fL (80.0-94.0); MEAN CORPUSCULAR HEMOGLOBIN 28.2 pg (27.0-31.0); MEAN CORPUSCULAR HGB CONC 31.8 g/dL (33.0-37.0); MEAN PLATELET VOLUME 8.5 fL (7.2-11.7); RED CELL DISTRIBUTION WIDTH 19.8 % (11.5-14.5); WHITE BLOOD COUNT 12.1 K/uL (4.8-10.8)
[2016-12-01 07:42] LABS: POTASSIUM 4.8 mmol/L (3.6-5.2)
[2016-12-01 07:46] LABS: CALCIUM 9.3 mg/dl (8.6-10.4)
[2016-12-01] MEDS: (Novolog) Insulin Aspart, Recombinant 100 u/ml 10 ml vial SC SCH ×3 (08:10→16:30)
[2016-12-01 08:14] LABS: FREE T4 1.19 ng/dL (0.78-2.19)
[2016-12-01 08:28] LABS: THYROID STIMULATING HORMONE 1.64 mIU/L (0.46-4.68)
[2016-12-01] MEDS: Albuterol-Ipratrop 3 mg / 0.5 (3 ml) UD INH SCH ×3 (08:34→15:53)
--- NOTE | 2016-12-01 09:43 | CP.PCM.PN ---
Subjective - Date & Time of Evaluation Date of Evaluation: 12/01/16 Time of Evaluation: 09:30 - Subjective Subjective: Currently on dialysis Appears comfortable Objective - Vital Signs/Intake and Output Vital Signs (last 24 hours): Temp Pulse Resp BP Pulse Ox 97.6 F 81 20 101/67 100 12/01/16 07:52 12/01/16 08:13 12/01/16 07:52 12/01/16 07:52 12/01/16 07:52 Intake and Output: 12/01/16 12/01/16 06:59 18:59 Intake Total 580 Balance 580 - Medications Medications: Current Medications Albuterol/Ipratropium (Duoneb 3 Mg/0.5 Mg (3 Ml) Ud) 3 ml INH RQID [facility] Last Admin: 12/01/16 08:34 Dose: Not Given Amlodipine Besylate (Norvasc) 10 mg PO DAILY [facility] Last Admin: 11/30/16 09:48 Dose: 10 mg Aspirin (Aspirin Chewable) 81 mg PO DAILY [facility] Last Admin: 11/30/16 09:47 Dose: 81 mg Calcitriol (Rocaltrol) 0.25 mcg PO DAILY [facility] Last Admin: 11/30/16 09:48 Dose: 0.25 mcg Carvedilol (Coreg) 25 mg PO BID [facility] Last Admin: 11/30/16 17:12 Dose: 25 mg Clopidogrel Bisulfate (Plavix) 75 mg PO DAILY [facility] Last Admin: 11/30/16 09:48 Dose: 75 mg Epoetin Tom (Procrit) 8,000 unit SC TTS [facility] Famotidine (Pepcid) 20 mg PO DAILY [facility] Last Admin: 11/30/16 09:48 Dose: 20 mg Heparin Sodium (Porcine) (Heparin) 5,000 units SC Q12 [facility] Last Admin: 11/30/16 21:26 Dose: 5,000 units Hydralazine HCl (Apresoline) 100 mg PO BID [facility] Last Admin: 11/30/16 17:12 Dose: 100 mg Hydromorphone HCl (Dilaudid) 1 mg IVP Q6H PRN PRN Reason: Pain, moderate (4-7) Last Admin: 12/01/16 03:50 Dose: 1 mg Insulin Aspart (Novolog) 0 unit SC ACHS [facility] PRN Reason: Protocol Last Admin: 12/01/16 08:10 Dose: 3 unit Insulin Detemir (Levemir) 10 unit SC [facility] Last Admin: 11/30/16 21:42 Dose: 10 unit Isosorbide Mononitrate (Imdur) 60 mg PO DAILY [facility] Last Admin: 11/30/16 09:48 Dose: 60 mg Levothyroxine Sodium (Synthroid) 50 mcg PO DAILY@0630 [facility] Last Admin: 12/01/16 05:34 Dose: 50 mcg Rosuvastatin Calcium (Crestor) 10 mg PO [facility] Last Admin: 11/30/16 21:26 Dose: 10 mg Sertraline HCl (Zoloft) 50 mg PO DAILY [facility] Last Admin: 11/30/16 09:48 Dose: 50 mg - Labs Labs: 12/01/16 06:00 12/01/16 06:00 - Respiratory Exam Additional comments: Lungs clear - Cardiovascular Exam Cardiovascular Exam: REGULAR RHYTHM - Extremities Exam Additional comments: B/L BKA Assessment and Plan - Assessment and Plan (Free Text) Assessment: ESRD HTN CAD,CHF IDDM Plan: Cont. HD per schedule Volume overload corrected
[2016-12-01] MEDS ORDERED: EPOETIN ALFA 4,000 UNIT/ML ML Dialysis IV SCH (11:30)
[2016-12-01 12:36] VITALS: RESP 20
--- NOTE | 2016-12-01 15:42 | CP.PCM.PN ---
Subjective - Date & Time of Evaluation Date of Evaluation: 12/01/16 Time of Evaluation: 15:42 - Subjective Subjective: Events reviewed Objective - Vital Signs/Intake and Output Vital Signs (last 24 hours): Temp Pulse Resp BP Pulse Ox 97.9 F 84 20 163/84 H 100 12/01/16 12:30 12/01/16 13:26 12/01/16 12:30 12/01/16 13:26 12/01/16 12:30 Intake and Output: 12/01/16 12/01/16 06:59 18:59 Intake Total 580 Balance 580 - Medications Medications: Current Medications Albuterol/Ipratropium (Duoneb 3 Mg/0.5 Mg (3 Ml) Ud) 3 ml INH RQID [facility] Last Admin: 12/01/16 12:00 Dose: Not Given Amlodipine Besylate (Norvasc) 10 mg PO DAILY [facility] Last Admin: 12/01/16 13:32 Dose: 10 mg Aspirin (Aspirin Chewable) 81 mg PO DAILY [facility] Last Admin: 12/01/16 13:31 Dose: 81 mg Calcitriol (Rocaltrol) 0.25 mcg PO DAILY [facility] Last Admin: 12/01/16 13:32 Dose: 0.25 mcg Carvedilol (Coreg) 25 mg PO BID [facility] Last Admin: 12/01/16 12:48 Dose: Not Given Clopidogrel Bisulfate (Plavix) 75 mg PO DAILY [facility] Last Admin: 12/01/16 13:32 Dose: 75 mg Epoetin Tom (Procrit) 8,000 unit IV TTS [facility] Last Admin: 12/01/16 11:36 Dose: 4,000 unit Famotidine (Pepcid) 20 mg PO DAILY [facility] Last Admin: 12/01/16 13:32 Dose: 20 mg Heparin Sodium (Porcine) (Heparin) 5,000 units SC Q12 [facility] Last Admin: 12/01/16 12:48 Dose: Not Given Heparin Sodium (Porcine) (Heparin) 4,600 units IVP TTS [facility] Last Admin: 12/01/16 11:37 Dose: 4,600 units Hydralazine HCl (Apresoline) 100 mg PO BID [facility] Last Admin: 12/01/16 12:48 Dose: Not Given Hydromorphone HCl (Dilaudid) 1 mg IVP Q6H PRN PRN Reason: Pain, moderate (4-7) Last Admin: 12/01/16 09:59 Dose: 1 mg Insulin Aspart (Novolog) 0 unit SC [facility] PRN Reason: Protocol Last Admin: 12/01/16 12:49 Dose: Not Given Insulin Detemir (Levemir) 10 unit SC [facility] Last Admin: 11/30/16 21:42 Dose: 10 unit Isosorbide Mononitrate (Imdur) 60 mg PO DAILY [facility] Last Admin: 12/01/16 13:32 Dose: 60 mg Levothyroxine Sodium (Synthroid) 50 mcg PO DAILY@0630 [facility] Last Admin: 12/01/16 05:34 Dose: 50 mcg Rosuvastatin Calcium (Crestor) 10 mg PO [facility] Last Admin: 11/30/16 21:26 Dose: 10 mg Sertraline HCl (Zoloft) 50 mg PO DAILY [facility] Last Admin: 12/01/16 13:32 Dose: 50 mg - Labs Labs: 12/01/16 06:00 12/01/16 06:00 - Constitutional Appears: Well, Non-toxic - Respiratory Exam Respiratory Exam: Clear to Ausculation Bilateral, NORMAL BREATHING PATTERN - Cardiovascular Exam Cardiovascular Exam: REGULAR RHYTHM, RRR, +S1, +S2, +S4, Murmur (Bilateral BKA; +Permcath ). absent: JVD - GI/Abdominal Exam GI & Abdominal Exam: Normal Bowel Sounds. absent: Organomegaly Assessment and Plan - Assessment and Plan (Free Text) Assessment: 36 year old man with acute on chronic diastolic CHF ESRD HD Uncontrolled DM Severe coronary artery disease s/p CABG and then subsequent PCI of RCA, now all grafts including MOLINA are close there is no more revascularization options High dose statin and Dual anti platelet therpy Chronic angina stable in the past on nitrates, we have used ranexa successfully in the past Severe PVD s/p Bilateral BKA HTN is chornic and controlled with Coreg, norvasc
[2016-12-01 16:29] VITALS: BP 133/84; PULSE 91; TEMP 98.2
--- NOTE | 2016-12-01 17:20 | CP.PCM.PN ---
Subjective - Date & Time of Evaluation Date of Evaluation: 12/01/16 Time of Evaluation: 11:00 - Subjective Subjective: Sleepy but arousable. no sob or chest pains. Objective - Vital Signs/Intake and Output Vital Signs (last 24 hours): Temp Pulse Resp BP Pulse Ox 98.2 F 91 H 20 133/84 100 12/01/16 16:27 12/01/16 16:27 12/01/16 16:27 12/01/16 16:27 12/01/16 16:27 Intake and Output: 12/01/16 12/01/16 06:59 18:59 Intake Total 580 Balance 580 - Medications Medications: Current Medications Albuterol/Ipratropium (Duoneb 3 Mg/0.5 Mg (3 Ml) Ud) 3 ml INH RQID [facility] Last Admin: 12/01/16 15:53 Dose: 3 ml Amlodipine Besylate (Norvasc) 10 mg PO DAILY [facility] Last Admin: 12/01/16 13:32 Dose: 10 mg Aspirin (Aspirin Chewable) 81 mg PO DAILY [facility] Last Admin: 12/01/16 13:31 Dose: 81 mg Calcitriol (Rocaltrol) 0.25 mcg PO DAILY [facility] Last Admin: 12/01/16 13:32 Dose: 0.25 mcg Carvedilol (Coreg) 25 mg PO BID [facility] Last Admin: 12/01/16 12:48 Dose: Not Given Clopidogrel Bisulfate (Plavix) 75 mg PO DAILY [facility] Last Admin: 12/01/16 13:32 Dose: 75 mg Epoetin Tom (Procrit) 8,000 unit IV TTS [facility] Last Admin: 12/01/16 11:36 Dose: 4,000 unit Famotidine (Pepcid) 20 mg PO DAILY [facility] Last Admin: 12/01/16 13:32 Dose: 20 mg Heparin Sodium (Porcine) (Heparin) 5,000 units SC Q12 [facility] Last Admin: 12/01/16 12:48 Dose: Not Given Heparin Sodium (Porcine) (Heparin) 4,600 units IVP TTS [facility] Last Admin: 12/01/16 11:37 Dose: 4,600 units Hydralazine HCl (Apresoline) 100 mg PO BID [facility] Last Admin: 12/01/16 12:48 Dose: Not Given Hydromorphone HCl (Dilaudid) 1 mg IVP Q6H PRN PRN Reason: Pain, moderate (4-7) Last Admin: 12/01/16 16:01 Dose: 1 mg Insulin Aspart (Novolog) 0 unit SC [facility] PRN Reason: Protocol Last Admin: 12/01/16 12:49 Dose: Not Given Insulin Detemir (Levemir) 10 unit SC [facility] Last Admin: 11/30/16 21:42 Dose: 10 unit Isosorbide Mononitrate (Imdur) 60 mg PO DAILY [facility] Last Admin: 12/01/16 13:32 Dose: 60 mg Levothyroxine Sodium (Synthroid) 50 mcg PO DAILY@0630 [facility] Last Admin: 12/01/16 05:34 Dose: 50 mcg Rosuvastatin Calcium (Crestor) 10 mg PO [facility] Last Admin: 11/30/16 21:26 Dose: 10 mg Sertraline HCl (Zoloft) 50 mg PO DAILY [facility] Last Admin: 12/01/16 13:32 Dose: 50 mg - Labs Labs: 12/01/16 06:00 12/01/16 06:00 Assessment and Plan - Assessment and Plan (Free Text) Assessment: Patient is seen and examined after HD. Sleepy but arousable. Denies any pain, no sob or chest pains, NAD. D/W DR Li, plan to discharge home today. Advised to continue his medcations ordered as it is.
--- NOTE | 2016-12-01 17:25 | PCM.HF ---
Heart Failure Core Measure - Heart Failure Ejection Fraction: 40 % or Greater (EF 65-70%) RAÚL Inhibitor Prescribed: No Contraindication/Reason for not providing: ESRD Beta-Andrew Prescribed: Carvedilol Angiotensin II Receptor Andrew Prescribed: No Contraindication/Reason for not providing: ESRD AnticoagulationTherapy for Atrial Fibrillation/Atrialflutter: No Contraindication/Reason for not providing: SR Aldosterone Antagonist Prescribed: No Contraindication/Reason for not providing: CKD Hydralazine Nitrate Prescribed: Yes Implantable Cardioverter Defibrillator Therapy: No Contraindication/Reason for not providing: EF >40% Cardiac Resynchronization Therapy Prescribed: No Contraindication/Reason for not providing: not indicated - Follow up Will be discharged to: Home Follow Up Date (must be within 7 days from discharge): 12/10/16 Follow Up Time: 09:00
--- NOTE | 2016-12-01 17:33 | CP.PCM.DIS ---
Provider - Provider Date of Admission: 11/27/16 16:26 Attending physician: Sybil Li MD Primary care physician: pt came in for sob chf chest pain had more dialysis has copd bs was hi monitered and treated by insulin seen by cardiology medications given stable will d/c home with home healthcare and med and cont dialysis f/u in office Time Spent in preparation of Discharge (in minutes): 30 Hospital Course - Lab Results Lab Results: Most Recent Lab Values WBC 12.1 K/uL (4.8-10.8) H 12/01/16 06:00 RBC 3.66 Mil/uL (4.40-5.90) L 12/01/16 06:00 Hgb 10.3 g/dL (12.0-18.0) L 12/01/16 06:00 Hct 32.4 % (35.0-51.0) L 12/01/16 06:00 MCV 88.6 fL (80.0-94.0) 12/01/16 06:00 MCH 28.2 pg (27.0-31.0) 12/01/16 06:00 MCHC 31.8 g/dL (33.0-37.0) L 12/01/16 06:00 RDW 19.8 % (11.5-14.5) H 12/01/16 06:00 Plt Count 165 K/uL (130-400) 12/01/16 06:00 MPV 8.5 fL (7.2-11.7) 12/01/16 06:00 Neut % (Auto) 74.0 % (50.0-75.0) 11/27/16 14:02 Lymph % (Auto) 17.1 % (20.0-40.0) L 11/27/16 14:02 [place] % (Auto) 4.0 % (0.0-10.0) 11/27/16 14:02 Eos % (Auto) 4.3 % (0.0-4.0) H 11/27/16 14:02 Baso % (Auto) 0.6 % (0.0-2.0) 11/27/16 14:02 Neut # 8.8 K/uL (1.8-7.0) H 11/27/16 14:02 Lymph # 2.0 K/uL (1.0-4.3) 11/27/16 14:02 [place] # 0.5 K/uL (0.0-0.8) 11/27/16 14:02 Eos # 0.5 K/uL (0.0-0.7) 11/27/16 14:02 Baso # 0.1 K/uL (0.0-0.2) 11/27/16 14:02 Sodium 136 mmol/L (132-148) 12/01/16 06:00 Potassium 4.8 mmol/L (3.6-5.2) 12/01/16 06:00 Chloride 92 mmol/L (98-107) L 12/01/16 06:00 Carbon Dioxide 21 mmol/L (22-30) L 12/01/16 06:00 Anion Gap 28 (10-20) H 12/01/16 06:00 BUN 67 mg/dL (9-20) H 12/01/16 06:00 Creatinine 5.7 MG/DL (0.8-1.5) H 12/01/16 06:00 Est GFR ( Amer) 14 12/01/16 06:00 Est GFR (Non-Af Amer) 11 12/01/16 06:00 POC Glucose (mg/dL) 204 mg/dL (65-110) H 12/01/16 16:42 Random Glucose 316 mg/dL (75-110) H 12/01/16 06:00 Calcium 9.3 mg/dl (8.6-10.4) 12/01/16 06:00 Total Bilirubin 0.6 mg/dL (0.2-1.3) 11/28/16 08:00 AST 46 U/L (17-59) 11/28/16 08:00 ALT < 6 U/L (21-72) L D 11/28/16 08:00 Alkaline Phosphatase 164 U/L (38-126) H D 11/28/16 08:00 Total Creatine Kinase < 20 U/L (55-170) L 11/28/16 08:00 CK-MB (Mass) 0.27 ng/mL (0.0-3.38) 11/28/16 08:00 Troponin I, Quant 0.0160 ng/mL (0.00-0.120) 11/28/16 08:00 NT-Pro-B Natriuret Pep 62888 pg/mL (0-450) H 11/28/16 08:00 Total Protein 6.7 g/dL (6.3-8.3) 11/28/16 08:00 Albumin 3.6 g/dL (3.5-5.0) 11/28/16 08:00 Globulin 3.1 gm/dL (2.2-3.9) 11/28/16 08:00 Albumin/Globulin Ratio 1.1 (1.0-2.1) 11/28/16 08:00 Triglycerides 136 mg/dL (0-149) D 11/28/16 08:00 Cholesterol 92 mg/dL (0-199) 11/28/16 08:00 LDL Cholesterol Direct < 30 mg/dL (0-129) 11/28/16 08:00 HDL Cholesterol 29 mg/dL (30-70) L 11/28/16 08:00 Free T4 1.19 ng/dL (0.78-2.19) 12/01/16 06:00 TSH 3rd Generation 1.64 mIU/L (0.46-4.68) 12/01/16 06:00 Influenza Typ A,B (EIA) Negative for flu a/b (NEGATIVE) 11/27/16 15:45 Discharge Exam - Head Exam Head Exam: NORMAL INSPECTION Discharge Plan - Follow Up Plan Condition: GOOD Disposition: HOME/ ROUTINE Instructions: Hemodialysis (DC), Renal Failure Diet (DC), Diabetes Mellitus Type 2 in Adults (DC) Additional Instructions: TAKE YOUR MEDICATIONS S INSTRUCTED BY DR. LI. PLEASE CALL DR. CEVALLOS OFFICE TO GET AN APPOINTMENT TO SEE HER IN HER OFFICE A WEEK AFTER LEAVING THE HOSPITAL FOLLOW UP WITH YOUR OUTPATIENT DIALYSIS. FOR ANY QUESTIONS PLEASE CALL DR. Vineet LI Referrals: Sybil Li MD [Staff Provider] -
== END 2016-12-01 18:40 | disposition home or self-care (01) | DRG 544 ==
LOC: C.ER 12:31 → C.9E 16:26 → C.6T 18:06
PROVIDERS: ADMIT Internal Medicine; ATTEND Internal Medicine
DX: I13.2 Hypertensive heart and chronic kidney disease with heart failure and with stage 5 chronic kidney disease, or end stage renal disease (principal); I50.33 Acute on chronic diastolic (congestive) heart failure; N18.6 End stage renal disease; E11.22 Type 2 diabetes mellitus with diabetic chronic kidney disease; E11.51 Type 2 diabetes mellitus with diabetic peripheral angiopathy without gangrene; I25.728 Atherosclerosis of autologous artery coronary artery bypass graft(s) with other forms of angina pectoris; E87.5 Hyperkalemia; J44.9 Chronic obstructive pulmonary disease, unspecified; E11.65 Type 2 diabetes mellitus with hyperglycemia; E03.9 Hypothyroidism, unspecified; E78.00 Pure hypercholesterolemia, unspecified; G30.9 Alzheimer's disease, unspecified; F02.80 Dementia in other diseases classified elsewhere, unspecified severity, without behavioral disturbance, psychotic disturbance, mood disturbance, and anxiety; I48.91 Unspecified atrial fibrillation; J45.909 Unspecified asthma, uncomplicated; H54.8 Legal blindness, as defined in USA; Z99.2 Dependence on renal dialysis; Z89.512 Acquired absence of left leg below knee; Z95.1 Presence of aortocoronary bypass graft; Z89.511 Acquired absence of right leg below knee; Z95.5 Presence of coronary angioplasty implant and graft; Z79.4 Long term (current) use of insulin; Z86.73 Personal history of transient ischemic attack (TIA), and cerebral infarction without residual deficits; Z87.11 Personal history of peptic ulcer disease

== ENCOUNTER 2016-12-08 10:02 | Inpatient (IN) | payer OTHER ==
[2016-12-08 10:03] VITALS: PULSE 66; BMI 20.7
--- NOTE | 2016-12-08 10:26 | C.PDOC ---
History Of Present Illness 36-year-old male, PMHx includes ESRD on HD on TTS, CAD, CABG, IDDM, PVD seizures , presents to the emergency department with complaints of fever. Patient missed Hemodialysis, states last dialysis was on 12/06. Patient states he has had a fever for the past three days TM 102, that is associated with cough. No chest pain, shortness of breath, nausea/vomiting or diarrhea. Patient was recently discharged on 12/01. Pt was given Motrin at 09:00 this morning. Of note, patient states his baseline blood pressure is "always high." MISSED HD LAST ON 12/06. PS W FEVER X 3 DAYS TM 102. +COUGH. NO CP, SOB, NVD. RECENT DC 12/01. S/P MOTRIN @ 0900 ESRD on HD on TTS, CAD,CABG,IDDM,PVD seizures. PS BASELINE BP "ALWAYS HIGH", DID NOT TAKE MEDS TODAY EXAM NONTOXIC NARD HEENT NEG LUNGS CTA B/L NO W/R/R REMAINDER NEG MDM DEFER SEPSIS BOLUS @ THIS TIME DUE TO HO ESRD. VSS Chief Complaint (Nursing): Chest Pain History Per: Patient History/Exam Limitations: no limitations Onset/Duration Of Symptoms: Days Current Symptoms Are (Timing): Still Present Past Medical History Reviewed: Historical Data, Nursing Documentation, Vital Signs Vital Signs: Last Vital Signs Temp 97.6 F 12/08/16 11:32 Pulse 76 12/08/16 11:23 Resp 20 12/08/16 11:23 BP 197/77 H 12/08/16 11:23 Pulse Ox 100 12/08/16 11:23 - Medical History PMH: Alzheimer's Disease, Anemia, Anxiety, Arthritis, Asthma, Atrial Fibrillation, Bronchitis, CAD, Cardia Arrhythmia, CHF, COPD, CVA, Depression, Diabetes, Deep Vein Thrombosis, Gastrointestinal Ulcer, Gall Bladder Disease, HTN, Hypercholesterolemia, Hyperthyroidism, Hypothyroidism, End Stage Renal Disease (on dialysis Sat//Sat.), Chronic Kidney Disease, Seizures Denies: HIV, Pneumonia, Sexually Transmitted Disease Surgical History: CABG (12/2009), Cholecystectomy (2011), Coronary Stent (X3) - [facility] Procedures ABDOMINAL WALL SINOGRAM (12/31/13) C.A.T. SCAN OF ABDOMEN (10/31/13) CENTRAL VENOUS CATHETER PLACEMENT WITH GUIDANCE (02/10/15) DILATE R ANT TIB ART W DRUG-ELUT INTRALUM, PERC (08/12/15) DILATION OF LEFT FEMORAL ARTERY, PERCUTANEOUS APPROACH (07/04/16) DILATION OF RIGHT FEMORAL ARTERY, PERCUTANEOUS APPROACH (08/12/15) DILATION OF RIGHT POPLITEAL ARTERY, PERCUTANEOUS APPROACH (08/12/15) DX ULTRASOUND-HEART (01/05/13) ENTERAL INFUSION OF CONCENTRATED NUT. SUBSTANCES (06/28/13) EXCIS DEBRIDE OF WOUND, INFECT, OR BURN (08/03/14) EXTIRPATION OF MATTER FROM L FEM ART, PERC APPROACH (07/04/16) EXTIRPATION OF MATTER FROM R FEM ART, PERC APPROACH (08/12/15) EXTIRPATION OF MATTER FROM R POPL ART, PERC APPROACH (08/12/15) FLUOROSCOPY OF L LOW EXTREM ART USING L OSM CONTRAST (08/12/15) FLUOROSCOPY OF R LOW EXTREM ART USING L OSM CONTRAST (08/12/15) FREE SKIN GRAFT NEC (08/03/14) HEAD SOFT TISS X-RAY NEC (04/15/13) HEMODIALYSIS (04/28/15) INCIS W REM OF FORIEGN BODY OR DEV FROM SKIN & SUBCUT TISSUE (08/08/13) INSERTION OF INFUSION DEV INTO R SUBCLAV VEIN, PERC APPROACH (01/19/16) INTRODUCE OF OTH THROMBOLYTIC INTO PERIPH ART, PERC APPROACH (08/12/15) LAPAROSCOPIC CHOLECYSTECTOMY (09/21/13) LOC EXC LES METATAR/TAR (06/01/14) PACKED CELL TRANSFUSION (06/01/14) PERCUTAN LIVER ASPIRAT (12/31/13) PERFORMANCE OF URINARY FILTRATION, MULTIPLE (07/19/16) PERFORMANCE OF URINARY FILTRATION, SINGLE (11/06/16) SKIN & SUBQ INCISION NEC (10/24/14) TETANUS TOXOID ADMINIST (06/13/14) VENOUS CATHETERIZATION FOR RENAL DIALYSIS (08/08/13) VENOUS CATHETERIZATION NEC (04/30/13) Family History: States: Unknown Family Hx - Social History Hx Tobacco Use: No Hx Alcohol Use: No Hx Substance Use: No - Immunization History Hx Tetanus Toxoid Vaccination: Yes Hx Influenza Vaccination: Yes Hx Pneumococcal Vaccination: Yes Review Of Systems Except As Marked, All Systems Reviewed And Found Negative. Constitutional: Positive for: Fever Cardiovascular: Negative for: Chest Pain Respiratory: Positive for: Cough Gastrointestinal: Negative for: Vomiting Skin: Negative for: Rash Neurological: Negative for: Weakness, Numbness, Headache, Dizziness Physical Exam - Physical Exam Appears: Non-toxic, No Acute Distress Skin: Warm, Dry, No Rash Head: Atraumatic, Normacephalic Eye(s): bilateral: Normal Inspection, PERRL Nose: Normal Oral Mucosa: Moist Lips: Normal Appearing Neck: Normal ROM Cardiovascular: Rhythm Regular Respiratory: Normal Breath Sounds, No Accessory Muscle Use, No Rales, No Rhonchi , No Wheezing Extremity: Normal ROM Neurological/Psych: Oriented x3, Normal Speech ED Course And Treatment - Laboratory Results Result Diagrams: 12/08/16 10:36 12/08/16 10:36 ECG: Interpreted By Me ECG Rhythm: Sinus Rhythm ECG Interpretation: No Changes From Prior Interpretation Of ECG: TWI I AVL UNCH PRIOR Rate From EC O2 Sat by Pulse Oximetry: 100 Pulse Ox Interpretation: Normal Progress - Re-Evaluation Re-evaluation Note: 12/08/16 11:02 D/W DR LI WILL ADMIT 12/08/16 11:16 D/W DR MONROE WILL ARRANGE FOR EMERGENT HD - Data Reviewed Data Reviewed: Lab, Diagnostic imaging, EKG, Old records - Critical Care Citical Care: Excluding Proc Time Critical Care Time: 90 minutes - Continuity of Care Discussed patient case with:: Patient, PMD Medical Decision Making Medical Decision Making: DEFER SEPSIS BOLUS @ THIS TIME DUE TO HO ESRD. VSS Disposition Counseled Patient/Family Regarding: Studies Performed, Diagnosis - Disposition Disposition: HOSPITALIZED Disposition Time: 11:02 Condition: SERIOUS - POA Present On Arrival: None - Clinical Impression Clinical Impression: ESRD needing dialysis, Chronic pain, Hyperkalemia - Scribe Statement The provider has reviewed the documentation as recorded by the Fabiola Love All medical record entries made by the Marlonibrigoberto were at my direction and personally dictated by me. I have reviewed the chart and agree that the record accurately reflects my personal performance of the history, physical exam, medical decision making, and the department course for this patient. I have also personally directed, reviewed, and agree with the discharge instructions and disposition. Decision To Admit - Pt Status Changed To: Hospital Disposition Of: Inpatient - Admit Certification Admit to Inpatient:: After my assessment, the patient will require hospitalization for at least two midnights. This is because of the severity of symptoms shown, intensity of services needed, and/or the medical risk in this patient being treated as an outpatient. - InPatient: Physician Admission Certification: I certify that this patient requires 2 or more midnights of care for the following reason:: SEE NOTE - . Bed Request Type: Telemetry Admitting Physician: Sybil Li Patient Diagnosis: ESRD needing dialysis, Chronic pain, Hyperkalemia
[2016-12-08 10:40] LABS: BASO # 0.1 K/uL (0.0-0.2); BASO % 0.9 % (0.0-2.0); EOS # 0.5 K/uL (0.0-0.7); EOS % 4.2 % (0.0-4.0); HEMATOCRIT 26.8 % (35.0-51.0); LYMPH # 1.9 K/uL (1.0-4.3); LYMPH % 16.6 % (20.0-40.0); MEAN CELL VOLUME 88.7 fL (80.0-94.0); MEAN CORPUSCULAR HEMOGLOBIN 28.2 pg (27.0-31.0); MEAN CORPUSCULAR HGB CONC 31.8 g/dL (33.0-37.0); MEAN PLATELET VOLUME 8.7 fL (7.2-11.7); MONO # 0.5 K/uL (0.0-0.8); MONO % 4.7 % (0.0-10.0); RED CELL DISTRIBUTION WIDTH 19.7 % (11.5-14.5); WHITE BLOOD COUNT 11.5 K/uL (4.8-10.8)
[2016-12-08 10:49] LABS: INR 1.2
--- NOTE | 2016-12-08 10:49 | RAD ---
HISTORY: Sepsis Patient COMPARISON: 11/27/2016 FINDINGS: LUNGS: Moderate to severe venous congestion with confluent airspace consolidation within the left lung. Moderate left pleural effusion. PLEURA: As above. CARDIOVASCULAR: Cardiomegaly. OSSEOUS STRUCTURES: Degenerative changes in the spine and shoulders. VISUALIZED UPPER ABDOMEN: Normal. OTHER FINDINGS: Lines and tubes stable position. IMPRESSION: Moderate to severe venous congestion with confluent airspace consolidation within the left lung. Moderate left pleural effusion.
[2016-12-08 10:50] LABS: ALB/GLOB RATIO 1.3 (1.0-2.1); BILIRUBIN,TOTAL 0.3 mg/dL (0.2-1.3)
[2016-12-08 10:51] LABS: MAGNESIUM 2.4 mg/dL (1.6-2.3); PHOSPHOROUS 4.9 mg/dL (2.5-4.5)
[2016-12-08] MEDS ORDERED: Calcium Gluconate 4.65 MEQ in Dextrose 5% In Water 100 ML IV STA (10:55)
[2016-12-08 11:01] LABS: VENOUS BLOOD GAS BASE EXCESS -4.7 mmol/L (0.0-2.0); VENOUS BLOOD GAS PCO2 49 mmHg (40-60); VENOUS BLOOD PH 7.27 (7.32-7.43)
[2016-12-08] MEDS ORDERED: Dextrose 50% SYRINGE Inj (50 ml) IVP STA (11:01)
[2016-12-08] MEDS ORDERED: (Novolin R) Insulin Human Regular 100 units/ml vial IV STA (11:01)
[2016-12-08] MEDS ORDERED: (Novolin R) Insulin Human Regular 100 units/ml vial ONE (11:19)
[2016-12-08] MEDS ORDERED: Dextrose 50% SYRINGE Inj (50 ml) ONE (11:20)
[2016-12-08] MEDS ORDERED: Calcium Gluconate 4.65 mEq/10 ml Inj ONE (11:27)
--- NOTE | 2016-12-08 11:55 | CP.PCM.CON ---
History of Present Illness - History of Present Illness History of Present Illness: 36 year old male w pmh of esrd, cad, htn, anemia dm that presented w/ cc of chest pain. She states that she developed chest pain today. She also had fevers x 3 days as high as 102 though not clear. She also did not go to dialysis on . She denies n/v. Po intake has been ok. She is requesting narcotis for pain. ros: a full detailed ros is negative except as above PmHx: ESRD, HTN, Afib, CAD, COPD, CHF, PAD, DM, multiple amputations Allergies: acetaminophen, atenolol, digoxin, milk, morphine, oxcodone Surg: b/l bka, cagb, cardiac stents x 3, cholecystectomy Social: denies alcohol, tobacco, drug abuse fmahx: no esrd Past Patient History - Infectious Disease Hx of Infectious Diseases: MRSA - Tetanus Immunizations Tetanus Immunization: >10 years Ago - Past Medical History & Family History Past Medical History?: Yes - Past Social History Smoking Status: Never Smoked - CARDIAC Hx Atrial Fibrillation: Yes Hx Cardia Arrhythmia: Yes Hx Congestive Heart Failure: Yes Hx Hypercholesterolemia: Yes Hx Hypertension: Yes - PULMONARY Hx Asthma: Yes Hx Bronchitis: Yes Hx Chronic Obstructive Pulmonary Disease (COPD): Yes Hx Pneumonia: No - NEUROLOGICAL Hx Alzheimer's Disease: Yes Hx Seizures: Yes - HEENT Hx HEENT Problems: Yes Hx Blind: Yes (legally blind) Hx Cataracts: Yes - RENAL Hx Chronic Kidney Disease: Yes - ENDOCRINE/METABOLIC Hx Hyperthyroidism: Yes Hx Hypothyroidism: Yes - HEMATOLOGICAL/ONCOLOGICAL Hx Anemia: Yes Hx Human Immunodeficiency Virus (HIV): No - INTEGUMENTARY Hx Dermatological Problems: No - MUSCULOSKELETAL/RHEUMATOLOGICAL Hx Arthritis: Yes - GASTROINTESTINAL Hx Gall Bladder Disease: Yes - GENITOURINARY/GYNECOLOGICAL Hx Sexually Transmitted Disorders: No - PSYCHIATRIC Hx Anxiety: Yes Hx Depression: Yes Hx Substance Use: No - SURGICAL HISTORY Hx Cholecystectomy: Yes (2011) 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/2009) Hx Coronary Stent: Yes (X3) - ANESTHESIA Hx Anesthesia: Yes Hx Anesthesia Reactions: No Hx Malignant Hyperthermia: No Meds Allergies/Adverse Reactions: Allergies Allergy/AdvReac Type Severity Reaction Status Date / Time acetaminophen [From Percocet] Allergy RASH Verified 12/08/16 10:10 atenolol Allergy RASH Verified 12/08/16 10:10 digoxin Allergy RASH Verified 12/08/16 10:10 milk Allergy ITCHING Verified 12/08/16 10:10 morphine Allergy ITCHING Verified 12/08/16 10:10 oxycodone HCl [From Percocet] Allergy RASH Verified 12/08/16 10:10 - Medications Medications: Current Medications Calcium Gluconate 4.65 meq/ (Dextrose) 110 mls @ 100 mls/hr IV STAT STA Stop: 12/08/16 12:00 Last Admin: 12/08/16 11:28 Dose: 100 mls/hr Physical Exam - Constitutional Appears: Well - Head Exam Head Exam: ATRAUMATIC - Eye Exam Eye Exam: Normal appearance - ENT Exam ENT Exam: Normal Exam - Neck Exam Neck exam: Positive for: Normal Inspection - Respiratory Exam Respiratory Exam: NORMAL BREATHING PATTERN - Cardiovascular Exam Cardiovascular Exam: +S1, +S2 - GI/Abdominal Exam GI & Abdominal Exam: Normal Bowel Sounds - Extremities Exam Additional comments: no edema, b/l bka - Back Exam Back exam: NORMAL INSPECTION - Neurological Exam Neurological exam: Alert, Oriented x3 - Psychiatric Exam Psychiatric exam: Normal Affect - Skin Skin Exam: Normal Color Results - Vital Signs Recent Vital Signs: Last Vital Signs Temp 97.6 F 12/08/16 11:32 Pulse 76 12/08/16 11:23 Resp 20 12/08/16 11:23 BP 197/77 H 12/08/16 11:23 Pulse Ox 100 12/08/16 11:50 - Labs Result Diagrams: 12/08/16 10:36 12/08/16 10:36 Assessment & Plan - Assessment and Plan (Free Text) Assessment: esrd / htn / anemia / chest pain / secondary hyperpara /hyperkalemia plan: seen on hd - missed hd yesterday hyperkalemia should resolved post hd resume home bp meds resume phos binder epo w/ hd
[2016-12-08] MEDS ORDERED: EPOETIN ALFA 10,000 UNIT/ML ML SC ONE (11:56)
[2016-12-08] MEDS: Epoetin Alfa 10,000 unit/ml Dialysis IV SCH (13:02)
[2016-12-08] MEDS ORDERED: (Novolog) Insulin Aspart, Recombinant 100 u/ml 10 ml vial SC PRN (19:02)
[2016-12-08] MEDS ORDERED: GABAPENTIN 300 MG PO SCH (19:15)
[2016-12-08] MEDS ORDERED: Labetalol 25mg/5ml Syringe IVP STA (19:15)
--- NOTE | 2016-12-08 19:16 | CP.PCM.HP ---
History of Present Illness - History of Present Illness History of Present Illness: came to [facility]cking [place] cough chest pain nausea sob and k hi bp 200 Present on Admission - Present on Admission Any Indicators Present on Admission: Yes Review of Systems - Review of Systems Systems not reviewed;Unavailable: Acuity of Condition - Constitutional Constitutional: Anorexia - EENT Eyes: Other Visual Disturbances Ears: As Per HPI Nose/Mouth/Throat: As Per HPI - Cardiovascular Cardiovascular: Chest Pain, Chest Pain at Rest, Palpitations - Respiratory Respiratory: Dyspnea on Exertion, Chest Congestion - Gastrointestinal Gastrointestinal: Change in Bowel Habits - Genitourinary Genitourinary: As Per HPI - Reproductive: Male Reproductive:Male: As Per HPI Additional comments: klinfilter - Musculoskeletal Musculoskeletal: Myalgias Additional comments: bilateral amputation - Integumentary Integumentary: As Per HPI - Neurological Neurological: As Per HPI, Numbness - Psychiatric Psychiatric: Depression - Hematologic/Lymphatic Hematologic: As Per HPI Past Patient History - Infectious Disease Hx of Infectious Diseases: MRSA - Tetanus Immunizations Tetanus Immunization: >10 years Ago - Past Medical History & Family History Past Medical History?: Yes - Past Social History Smoking Status: Never Smoked - CARDIAC Hx Atrial Fibrillation: Yes Hx Cardia Arrhythmia: Yes Hx Congestive Heart Failure: Yes Hx Hypercholesterolemia: Yes Hx Hypertension: Yes - PULMONARY Hx Asthma: Yes Hx Bronchitis: Yes Hx Chronic Obstructive Pulmonary Disease (COPD): Yes Hx Pneumonia: No - NEUROLOGICAL Hx Alzheimer's Disease: Yes Hx Seizures: Yes - HEENT Hx HEENT Problems: Yes Hx Blind: Yes (legally blind) Hx Cataracts: Yes - RENAL Hx Chronic Kidney Disease: Yes - ENDOCRINE/METABOLIC Hx Hyperthyroidism: Yes Hx Hypothyroidism: Yes - HEMATOLOGICAL/ONCOLOGICAL Hx Anemia: Yes Hx Human Immunodeficiency Virus (HIV): No - INTEGUMENTARY Hx Dermatological Problems: No - MUSCULOSKELETAL/RHEUMATOLOGICAL Hx Arthritis: Yes - GASTROINTESTINAL Hx Gall Bladder Disease: Yes - GENITOURINARY/GYNECOLOGICAL Hx Sexually Transmitted Disorders: No - PSYCHIATRIC Hx Anxiety: Yes Hx Depression: Yes Hx Substance Use: No - SURGICAL HISTORY Hx Cholecystectomy: Yes (2011) 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/2009) Hx Coronary Stent: Yes (X3) - ANESTHESIA Hx Anesthesia: Yes Hx Anesthesia Reactions: No Hx Malignant Hyperthermia: No Meds Allergies/Adverse Reactions: Allergies Allergy/AdvReac Type Severity Reaction Status Date / Time acetaminophen [From Percocet] Allergy RASH Verified 12/08/16 10:10 atenolol Allergy RASH Verified 12/08/16 10:10 digoxin Allergy RASH Verified 12/08/16 10:10 milk Allergy ITCHING Verified 12/08/16 10:10 morphine Allergy ITCHING Verified 12/08/16 10:10 oxycodone HCl [From Percocet] Allergy RASH Verified 12/08/16 10:10 Physical Exam - Constitutional Appears: In Acute Distress - Head Exam Head Exam: ATRAUMATIC - Eye Exam Additional comments: legaly blind - ENT Exam ENT Exam: Mucous Membranes Moist - Neck Exam Neck exam: Positive for: Full Rom - Respiratory Exam Respiratory Exam: Decreased Breath Sounds - Cardiovascular Exam Cardiovascular Exam: REGULAR RHYTHM - GI/Abdominal Exam GI & Abdominal Exam: Normal Bowel Sounds - Rectal Exam Rectal Exam: NORMAL INSPECTION Results - Vital Signs Recent Vital Signs: Last Vital Signs Temp 97.3 F L 12/08/16 15:25 Pulse 81 12/08/16 19:09 Resp 19 12/08/16 19:09 BP 224/83 H 12/08/16 19:09 Pulse Ox 100 12/08/16 19:09 - Labs Result Diagrams: 12/08/16 10:36 12/08/16 10:36 Labs: Laboratory Results - last 24 hr 12/08/16 18:13 POC Glucose (mg/dL) 150 H Assessment & Plan - Assessment and Plan (Free Text) Assessment: ac chest pain CHF HYPERK[place]AMIA ESRF DMID DEPRESION Plan: DIALYSIS ADMIT AMD PER ORDERS - Date & Time Date: 12/08/16 Time: 19:21
[2016-12-08] MEDS ORDERED: (Lantus) Insulin Glargine, Recombinant SC SCH (22:00)
[2016-12-08] MEDS: Ranolazine 500 mg Extended Release Tablets PO SCH (22:18)
[2016-12-09] MEDS: Levothyroxine 50 MCG TAB PO SCH (06:01)
[2016-12-09] MEDS: (Novolog) Insulin Aspart, Recombinant 100 u/ml 10 ml vial SC SCH ×6 (07:49→22:42)
[2016-12-09 08:09] LABS: BASO # 0.1 K/uL (0.0-0.2); BASO % 0.6 % (0.0-2.0); EOS # 0.5 K/uL (0.0-0.7); EOS % 4.8 % (0.0-4.0); HEMATOCRIT 27.9 % (35.0-51.0); LYMPH # 2.3 K/uL (1.0-4.3); LYMPH % 23.3 % (20.0-40.0); MEAN CELL VOLUME 88.6 fL (80.0-94.0); MEAN CORPUSCULAR HEMOGLOBIN 28.8 pg (27.0-31.0); MEAN CORPUSCULAR HGB CONC 32.5 g/dL (33.0-37.0); MEAN PLATELET VOLUME 8.6 fL (7.2-11.7); MONO # 0.6 K/uL (0.0-0.8); RED CELL DISTRIBUTION WIDTH 19.9 % (11.5-14.5); WHITE BLOOD COUNT 9.7 K/uL (4.8-10.8)
[2016-12-09 08:28] LABS: POTASSIUM 5.3 mmol/L (3.6-5.2)
[2016-12-09 08:31] LABS: ALB/GLOB RATIO 1.3 (1.0-2.1); BILIRUBIN,TOTAL 0.3 mg/dL (0.2-1.3); TOTAL PROTEIN 7.3 g/dL (6.3-8.3)
[2016-12-09 08:32] LABS: CALCIUM 8.8 mg/dl (8.6-10.4)
[2016-12-09] MEDS: Ranolazine 500 mg Extended Release Tablets PO SCH ×2 (10:18→17:49)
[2016-12-09] MEDS: Multiple Vitamins Tab PO SCH (10:18)
[2016-12-09] MEDS: Sevelamer Carb 2.4 gm/Packet PO SCH ×3 (10:19→17:51)
--- NOTE | 2016-12-09 12:01 | CP.PCM.PN ---
Subjective - Date & Time of Evaluation Date of Evaluation: 12/09/16 Time of Evaluation: 11:58 - Subjective Subjective: diarhea today Objective - Vital Signs/Intake and Output Vital Signs (last 24 hours): Temp Pulse Resp BP Pulse Ox 98.3 F 64 18 174/71 H 100 12/09/16 08:37 12/09/16 08:37 12/09/16 08:37 12/09/16 10:19 12/09/16 08:37 - Medications Medications: Current Medications Amlodipine Besylate (Norvasc) 10 mg PO DAILY [facility] Last Admin: 12/09/16 10:19 Dose: 10 mg Aspirin (Aspirin Chewable) 81 mg PO DAILY [facility] Last Admin: 12/09/16 10:18 Dose: 81 mg Calcitriol (Rocaltrol) 0.25 mcg PO DAILY [facility] Last Admin: 12/09/16 10:18 Dose: 0.25 mcg Carvedilol (Coreg) 25 mg PO BID [facility] Last Admin: 12/09/16 10:19 Dose: 25 mg Clopidogrel Bisulfate (Plavix) 75 mg PO DAILY [facility] Last Admin: 12/09/16 10:18 Dose: 75 mg Docusate Sodium (Colace) 100 mg PO HS PRN PRN Reason: Constipation Epoetin Tom (Procrit) 10,000 unit IV TTS [facility] Last Admin: 12/08/16 13:02 Dose: 10,000 unit Famotidine (Pepcid) 20 mg PO DAILY [facility] Last Admin: 12/09/16 10:18 Dose: 20 mg Gabapentin (Neurontin) 300 mg PO BID [facility] Last Admin: 12/09/16 10:18 Dose: 300 mg Hydralazine HCl (Apresoline) 100 mg PO Q8 [facility] Last Admin: 12/09/16 06:01 Dose: 100 mg Hydromorphone HCl (Dilaudid) 1 mg IVP Q6H PRN PRN Reason: Pain, moderate (4-7) Insulin Aspart (Novolog) 0 unit SC ACHS [facility] PRN Reason: Protocol Last Admin: 12/09/16 07:49 Dose: Not Given Insulin Glargine (Lantus) 18 unit SC HS [facility] Last Admin: 12/08/16 22:18 Dose: 18 unit Isosorbide Mononitrate (Imdur) 60 mg PO DAILY [facility] Last Admin: 12/09/16 10:19 Dose: 60 mg Levothyroxine Sodium (Synthroid) 50 mcg PO 0630 [facility] Last Admin: 12/09/16 06:01 Dose: 50 mcg Multivitamins (Hexavitamin) 1 tab PO DAILY [facility] Last Admin: 12/09/16 10:18 Dose: 1 tab Ranolazine (Ranexa) 500 mg PO BID [facility] Last Admin: 12/09/16 10:18 Dose: 500 mg Rosuvastatin Calcium (Crestor) 10 mg PO [facility] Sertraline HCl (Zoloft) 50 mg PO DAILY [facility] Last Admin: 12/09/16 10:18 Dose: 50 mg Sevelamer Carbonate (Renvela) 2.4 gm PO TIDCC [facility] Last Admin: 12/09/16 10:19 Dose: 2.4 gm - Labs Labs: 12/09/16 07:57 12/09/16 07:57 PT 13.5 SECONDS (9.7-12.2) H 12/08/16 10:36 INR 1.2 12/08/16 10:36 APTT 34 SECONDS (21-34) 12/08/16 10:36 - Constitutional Appears: Non-toxic - Head Exam Head Exam: NORMAL INSPECTION - Eye Exam Eye Exam: Normal appearance Additional comments: legaly blind - ENT Exam ENT Exam: Normal External Ear Exam - Respiratory Exam Respiratory Exam: Clear to Ausculation Bilateral - GI/Abdominal Exam GI & Abdominal Exam: Soft, Normal Bowel Sounds - Rectal Exam Rectal Exam: NORMAL INSPECTION - Extremities Exam Additional comments: bilateral amputation - Back Exam Back Exam: CVA tenderness (L), NORMAL INSPECTION - Neurological Exam Neurological Exam: Oriented x3 - Psychiatric Exam Psychiatric exam: Depressed - Skin Skin Exam: Normal Color Assessment and Plan - Assessment and Plan (Free Text) Assessment: diarhea ischemia chronic dm improving dep esrf copd Plan: as per orders
[2016-12-09] MEDS: HYDROmorphone 1 mg/ml ISec IVP PRN ×2 (13:00→19:25)
[2016-12-09] MEDS: (Lantus) Insulin Glargine, Recombinant SC SCH (23:12)
[2016-12-10] MEDS: HYDROmorphone 1 mg/ml ISec IVP PRN ×3 (01:47→21:48)
[2016-12-10] MEDS: Levothyroxine 50 MCG TAB PO SCH (05:41)
--- NOTE | 2016-12-10 08:14 | CP.PCM.CON ---
History of Present Illness - History of Present Illness History of Present Illness: 36-year-old male, presents to the emergency department 12/08/16 with complaints of fever. Patient missed Hemodialysis, states last dialysis was on 12/06. Patient states he has had a fever for the past three days TM 102, that is associated with cough. No chest pain, shortness of breath, nausea/vomiting or diarrhea. Patient was recently discharged on 12/01. Pt was given Motrin at 09:00 day of admission. pmhx is extensive for 1. CAD s/p CABG with subsequent closure of vein grafts and then had RCA stent. Non-revascularizable coronaries. 2. HTN uncontrolled: labile 3. DM uncontrolled (non compliant with diet) 4. PAD s/p L. BKA abd R. ray amputation and chronic R. heel ulcer; hx of R.SFA/ popliteal angioplasty and AT stent with eventual R. BKA. 5. kleinfelters 6. ASX moderate pulmonary stenosis 7. hx of chronic pain, hx of liver abscess and infections 8. legally blind 9. Pain medication dependence 10. Hx of non-compliance with missed HD in the past SOCHX: No Tobacco, ETOH or DRUBG abuse PSHX: as above ROS: legally blind, B/K BKA Review of Systems - Review of Systems All systems: reviewed and no additional remarkable complaints except Past Patient History - Infectious Disease Hx of Infectious Diseases: MRSA - Tetanus Immunizations Tetanus Immunization: >10 years Ago - Past Medical History & Family History Past Medical History?: Yes - Past Social History Smoking Status: Never Smoked - CARDIAC Hx Atrial Fibrillation: Yes Hx Cardia Arrhythmia: Yes Hx Congestive Heart Failure: Yes Hx Hypercholesterolemia: Yes Hx Hypertension: Yes - PULMONARY Hx Asthma: Yes Hx Bronchitis: Yes Hx Chronic Obstructive Pulmonary Disease (COPD): Yes Hx Pneumonia: No - NEUROLOGICAL Hx Alzheimer's Disease: Yes Hx Seizures: Yes - HEENT Hx HEENT Problems: Yes Hx Blind: Yes (legally blind) Hx Cataracts: Yes - RENAL Hx Chronic Kidney Disease: Yes - ENDOCRINE/METABOLIC Hx Hyperthyroidism: Yes Hx Hypothyroidism: Yes - HEMATOLOGICAL/ONCOLOGICAL Hx Anemia: Yes Hx Human Immunodeficiency Virus (HIV): No - INTEGUMENTARY Hx Dermatological Problems: No - MUSCULOSKELETAL/RHEUMATOLOGICAL Hx Arthritis: Yes - GASTROINTESTINAL Hx Gall Bladder Disease: Yes - GENITOURINARY/GYNECOLOGICAL Hx Sexually Transmitted Disorders: No - PSYCHIATRIC Hx Anxiety: Yes Hx Depression: Yes Hx Substance Use: No - SURGICAL HISTORY Hx Cholecystectomy: Yes (2011) 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/2009) Hx Coronary Stent: Yes (X3) - ANESTHESIA Hx Anesthesia: Yes Hx Anesthesia Reactions: No Hx Malignant Hyperthermia: No Meds Allergies/Adverse Reactions: Allergies Allergy/AdvReac Type Severity Reaction Status Date / Time acetaminophen [From Percocet] Allergy RASH Verified 12/08/16 10:10 atenolol Allergy RASH Verified 12/08/16 10:10 digoxin Allergy RASH Verified 12/08/16 10:10 milk Allergy ITCHING Verified 12/08/16 10:10 morphine Allergy ITCHING Verified 12/08/16 10:10 oxycodone HCl [From Percocet] Allergy RASH Verified 12/08/16 10:10 - Medications Medications: Current Medications Amlodipine Besylate (Norvasc) 10 mg PO DAILY [facility] Last Admin: 12/09/16 10:19 Dose: 10 mg Aspirin (Aspirin Chewable) 81 mg PO DAILY [facility] Last Admin: 12/09/16 10:18 Dose: 81 mg Calcitriol (Rocaltrol) 0.25 mcg PO DAILY [facility] Last Admin: 12/09/16 10:18 Dose: 0.25 mcg Carvedilol (Coreg) 25 mg PO BID [facility] Last Admin: 12/09/16 17:49 Dose: 25 mg Clopidogrel Bisulfate (Plavix) 75 mg PO DAILY [facility] Last Admin: 12/09/16 10:18 Dose: 75 mg Docusate Sodium (Colace) 100 mg PO HS PRN PRN Reason: Constipation Epoetin Tom (Procrit) 10,000 unit IV TTS [facility] Last Admin: 12/08/16 13:02 Dose: 10,000 unit Famotidine (Pepcid) 20 mg PO DAILY [facility] Last Admin: 12/09/16 10:18 Dose: 20 mg Gabapentin (Neurontin) 300 mg PO BID [facility] Last Admin: 12/09/16 17:49 Dose: 300 mg Hydralazine HCl (Apresoline) 100 mg PO Q8 [facility] Last Admin: 12/10/16 05:41 Dose: 100 mg Hydromorphone HCl (Dilaudid) 1 mg IVP Q6H PRN PRN Reason: Pain, moderate (4-7) Last Admin: 12/10/16 01:47 Dose: 1 mg Insulin Aspart (Novolog) 0 unit SC [facility] PRN Reason: Protocol Last Admin: 12/09/16 21:53 Dose: Not Given Insulin Aspart (Novolog) 0 unit SC [facility] PRN Reason: Protocol Last Admin: 12/09/16 22:42 Dose: Not Given Insulin Glargine (Lantus) 16 unit SC [facility] Last Admin: 12/09/16 23:12 Dose: 16 u Isosorbide Mononitrate (Imdur) 60 mg PO DAILY [facility] Last Admin: 12/09/16 10:19 Dose: 60 mg Levothyroxine Sodium (Synthroid) 50 mcg PO 0630 [facility] Last Admin: 12/10/16 05:41 Dose: 50 mcg Multivitamins (Hexavitamin) 1 tab PO DAILY [facility] Last Admin: 12/09/16 10:18 Dose: 1 tab Ranolazine (Ranexa) 500 mg PO BID [facility] Last Admin: 12/09/16 17:49 Dose: 500 mg Rosuvastatin Calcium (Crestor) 10 mg PO [facility] Last Admin: 12/09/16 21:56 Dose: 10 mg Sertraline HCl (Zoloft) 50 mg PO DAILY [facility] Last Admin: 12/09/16 10:18 Dose: 50 mg Sevelamer Carbonate (Renvela) 2.4 gm PO TIDCC [facility] Last Admin: 12/09/16 17:51 Dose: 2.4 gm Physical Exam - Constitutional Appears: No Acute Distress - Head Exam Head Exam: ATRAUMATIC, NORMAL INSPECTION, NORMOCEPHALIC - Eye Exam Eye Exam: absent: Scleral icterus - Neck Exam Neck exam: Positive for: Normal Inspection - Respiratory Exam Respiratory Exam: Clear to Auscultation Bilateral. absent: Rales, Rhonchi, Wheezes - Cardiovascular Exam Cardiovascular Exam: REGULAR RHYTHM, +S1, +S2, Systolic Murmur (LUSB 3/6 (known- chronic)) - GI/Abdominal Exam GI & Abdominal Exam: Soft. absent: Tenderness - Extremities Exam Extremities exam: Negative for: normal inspection (B/L BKA) - Back Exam Back exam: NORMAL INSPECTION - Neurological Exam Neurological exam: Alert, Oriented x3 - Skin Skin Exam: Normal Color - Additional Findings Additional findings: R. Upper chest HD catheter Results - Vital Signs Recent Vital Signs: Last Vital Signs Temp 97.8 F 12/10/16 00:00 Pulse 76 12/10/16 05:40 Resp 18 12/10/16 00:00 BP 171/76 H 12/10/16 05:40 Pulse Ox 100 12/10/16 00:00 - Labs Result Diagrams: 12/09/16 07:57 12/09/16 07:57 Labs: Laboratory Results - last 24 hr 12/09/16 12/09/16 12/09/16 07:57 11:22 14:43 WBC 9.7 RBC 3.15 L Hgb 9.1 L Hct 27.9 L MCV 88.6 MCH 28.8 MCHC 32.5 L RDW 19.9 H Plt Count 154 MPV 8.6 Neut % (Auto) 65.3 Lymph % (Auto) 23.3 [place] % (Auto) 6.0 Eos % (Auto) 4.8 H Baso % (Auto) 0.6 Neut # 6.3 Lymph # 2.3 [place] # 0.6 Eos # 0.5 Baso # 0.1 Sodium 137 Potassium 5.3 H Chloride 93 L Carbon Dioxide 26 Anion Gap 24 H BUN 40 H Creatinine 4.7 H Est GFR ( Amer) 17 Est GFR (Non-Af Amer) 14 POC Glucose (mg/dL) 169 H 69 Random Glucose 107 Calcium 8.8 Total Bilirubin 0.3 AST 19 ALT 10 L D Alkaline Phosphatase 119 Total Protein 7.3 Albumin 4.1 Globulin 3.2 Albumin/Globulin Ratio 1.3 12/09/16 12/09/16 12/09/16 15:32 16:22 21:08 WBC RBC Hgb Hct MCV MCH MCHC RDW Plt Count MPV Neut % (Auto) Lymph % (Auto) [place] % (Auto) Eos % (Auto) Baso % (Auto) Neut # Lymph # [place] # Eos # Baso # Sodium Potassium Chloride Carbon Dioxide Anion Gap BUN Creatinine Est GFR ( Amer) Est GFR (Non-Af Amer) POC Glucose (mg/dL) 70 105 283 H Random Glucose Calcium Total Bilirubin AST ALT Alkaline Phosphatase Total Protein Albumin Globulin Albumin/Globulin Ratio 12/10/16 06:36 WBC RBC Hgb Hct MCV MCH MCHC RDW Plt Count MPV Neut % (Auto) Lymph % (Auto) [place] % (Auto) Eos % (Auto) Baso % (Auto) Neut # Lymph # [place] # Eos # Baso # Sodium Potassium Chloride Carbon Dioxide Anion Gap BUN Creatinine Est GFR ( Amer) Est GFR (Non-Af Amer) POC Glucose (mg/dL) 224 H Random Glucose Calcium Total Bilirubin AST ALT Alkaline Phosphatase Total Protein Albumin Globulin Albumin/Globulin Ratio - EKG Data EKG Interpreted by: Myself (NSR, LVH with lateral strain (chronic)) - Imaging and Cardiology Chest x-ray Status: Image reviewed by me (Congestion, L. pleural effusion) Assessment & Plan - Assessment and Plan (Free Text) Assessment: HTN: labile Continue medical treatment as prescribed Remains elevated: can consider minoxidil 2.5 daily in addition DM: labile: Cont medical rx continued education and counseling management per primary team PAD: S/P B/L BKA ASX CAD: hx of CABG and stent; patient CAD status is stable and should be medically treated wth Coreg,IMDUR/Statin and DAPT. He has normal LV function with chronic diastolic dysfunction. EKG: read by me: NSR, chronic unchanged lateral ST chages, LVH and LAE * LDL goal 50-70 * Diabetic control * DAPT, ASA, Coreg, Imdur * No active cardiac sx's; cont medical therapy. * Congestion cont volume removal with HD ESRD: cont maintainence HD,
--- NOTE | 2016-12-10 10:50 | CP.PCM.PN ---
Subjective - Date & Time of Evaluation Date of Evaluation: 12/10/16 Time of Evaluation: 10:20 - Subjective Subjective: Less SOB today Objective - Vital Signs/Intake and Output Vital Signs (last 24 hours): Temp Pulse Resp BP Pulse Ox 97.7 F 63 20 175/82 H 98 12/10/16 07:00 12/10/16 07:00 12/10/16 07:00 12/10/16 07:00 12/10/16 07:00 Intake and Output: 12/10/16 12/10/16 06:59 18:59 Intake Total 500 Balance 500 - Medications Medications: Current Medications Amlodipine Besylate (Norvasc) 10 mg PO DAILY [facility] Last Admin: 12/09/16 10:19 Dose: 10 mg Aspirin (Aspirin Chewable) 81 mg PO DAILY [facility] Last Admin: 12/09/16 10:18 Dose: 81 mg Calcitriol (Rocaltrol) 0.25 mcg PO DAILY [facility] Last Admin: 12/09/16 10:18 Dose: 0.25 mcg Carvedilol (Coreg) 25 mg PO BID [facility] Last Admin: 12/09/16 17:49 Dose: 25 mg Clopidogrel Bisulfate (Plavix) 75 mg PO DAILY [facility] Last Admin: 12/09/16 10:18 Dose: 75 mg Docusate Sodium (Colace) 100 mg PO HS PRN PRN Reason: Constipation Epoetin Tom (Procrit) 10,000 unit IV TTS [facility] Last Admin: 12/08/16 13:02 Dose: 10,000 unit Famotidine (Pepcid) 20 mg PO DAILY [facility] Last Admin: 12/09/16 10:18 Dose: 20 mg Gabapentin (Neurontin) 300 mg PO BID [facility] Last Admin: 12/09/16 17:49 Dose: 300 mg Hydralazine HCl (Apresoline) 100 mg PO Q8 [facility] Last Admin: 12/10/16 05:41 Dose: 100 mg Hydromorphone HCl (Dilaudid) 1 mg IVP Q6H PRN PRN Reason: Pain, moderate (4-7) Last Admin: 12/10/16 08:09 Dose: 1 mg Insulin Aspart (Novolog) 0 unit SC ACHS [facility] PRN Reason: Protocol Last Admin: 12/09/16 21:53 Dose: Not Given Insulin Aspart (Novolog) 0 unit SC ACHS [facility] PRN Reason: Protocol Last Admin: 12/09/16 22:42 Dose: Not Given Insulin Glargine (Lantus) 16 unit SC [facility] Last Admin: 12/09/16 23:12 Dose: 16 u Isosorbide Mononitrate (Imdur) 60 mg PO DAILY [facility] Last Admin: 12/09/16 10:19 Dose: 60 mg Levothyroxine Sodium (Synthroid) 50 mcg PO 0630 [facility] Last Admin: 12/10/16 05:41 Dose: 50 mcg Multivitamins (Hexavitamin) 1 tab PO DAILY [facility] Last Admin: 12/09/16 10:18 Dose: 1 tab Ranolazine (Ranexa) 500 mg PO BID [facility] Last Admin: 12/09/16 17:49 Dose: 500 mg Rosuvastatin Calcium (Crestor) 10 mg PO HS [facility] Last Admin: 12/09/16 21:56 Dose: 10 mg Sertraline HCl (Zoloft) 50 mg PO DAILY [facility] Last Admin: 12/09/16 10:18 Dose: 50 mg Sevelamer Carbonate (Renvela) 2.4 gm PO TIDCC [facility] Last Admin: 12/09/16 17:51 Dose: 2.4 gm - Labs Labs: 12/09/16 07:57 12/09/16 07:57 PT 13.5 SECONDS (9.7-12.2) H 12/08/16 10:36 INR 1.2 12/08/16 10:36 APTT 34 SECONDS (21-34) 12/08/16 10:36 - Respiratory Exam Additional comments: Lungs with bibasilar crackles - Cardiovascular Exam Cardiovascular Exam: REGULAR RHYTHM - Extremities Exam Additional comments: B/L BKA Assessment and Plan - Assessment and Plan (Free Text) Assessment: ESRD on HD Volume overload. Needs extra dialysis today CAD,CABG HTN IDDM Plan: Extra dialysis is scheduled for today Als had hyperkalemia yesterdays BMP. Will repeat ;abs
[2016-12-10] MEDS: Ranolazine 500 mg Extended Release Tablets PO SCH ×2 (11:06→18:07)
[2016-12-10] MEDS: Sevelamer Carb 2.4 gm/Packet PO SCH ×3 (11:07→13:21)
[2016-12-10] MEDS: Multiple Vitamins Tab PO SCH (11:08)
[2016-12-10] MEDS: (Novolog) Insulin Aspart, Recombinant 100 u/ml 10 ml vial SC SCH ×5 (11:08→21:54)
--- NOTE | 2016-12-10 11:40 | CARD ---
APPROVED REPORT EKG Measurement Heart [id number] <Conclusion> Normal sinus rhythm T wave abnormality, consider lateral ischemia Abnormal ECG
[2016-12-10 12:51] LABS: ALB/GLOB RATIO 1.3 (1.0-2.1); BILIRUBIN,TOTAL 0.4 mg/dL (0.2-1.3); CALCIUM 9.4 mg/dl (8.6-10.4); TOTAL PROTEIN 7.3 g/dL (6.3-8.3)
[2016-12-10 12:52] LABS: POTASSIUM 6.7 mmol/L (3.6-5.2)
[2016-12-10] MEDS ORDERED: Sod Polystyrene Sulf 15 gm/60 ml Oral Susp PO ONE (12:56)
[2016-12-10] MEDS: Epoetin Alfa 10,000 unit/ml Dialysis IV SCH (16:37)
--- NOTE | 2016-12-10 17:48 | CP.PCM.PN ---
Subjective - Date & Time of Evaluation Date of Evaluation: 12/10/16 Time of Evaluation: 17:45 - Subjective Subjective: hi k no chest pain Objective - Vital Signs/Intake and Output Vital Signs (last 24 hours): Temp Pulse Resp BP Pulse Ox 97.9 F 76 20 136/80 96 12/10/16 17:37 12/10/16 17:37 12/10/16 17:37 12/10/16 17:37 12/10/16 17:37 Intake and Output: 12/10/16 12/10/16 06:59 18:59 Intake Total 500 Balance 500 - Medications Medications: Current Medications Amlodipine Besylate (Norvasc) 10 mg PO DAILY [facility] Last Admin: 12/10/16 11:07 Dose: 10 mg Aspirin (Aspirin Chewable) 81 mg PO DAILY [facility] Last Admin: 12/10/16 11:07 Dose: 81 mg Calcitriol (Rocaltrol) 0.25 mcg PO DAILY [facility] Last Admin: 12/10/16 11:05 Dose: 0.25 mcg Carvedilol (Coreg) 25 mg PO BID [facility] Last Admin: 12/10/16 11:05 Dose: 25 mg Clopidogrel Bisulfate (Plavix) 75 mg PO DAILY [facility] Last Admin: 12/10/16 11:07 Dose: 75 mg Docusate Sodium (Colace) 100 mg PO HS PRN PRN Reason: Constipation Epoetin Tom (Procrit) 10,000 unit IV TTS [facility] Last Admin: 12/08/16 13:02 Dose: 10,000 unit Famotidine (Pepcid) 20 mg PO DAILY [facility] Last Admin: 12/10/16 11:08 Dose: 20 mg Gabapentin (Neurontin) 300 mg PO BID [facility] Last Admin: 12/10/16 11:05 Dose: 300 mg Heparin Sodium (Porcine) (Heparin) 5,000 units SC Q12 [facility] Hydralazine HCl (Apresoline) 100 mg PO Q8 [facility] Last Admin: 12/10/16 14:26 Dose: Not Given Hydromorphone HCl (Dilaudid) 1 mg IVP Q6H PRN PRN Reason: Pain, moderate (4-7) Last Admin: 12/10/16 08:09 Dose: 1 mg Insulin Aspart (Novolog) 0 unit SC ACHS [facility] PRN Reason: Protocol Last Admin: 12/09/16 21:53 Dose: Not Given Insulin Aspart (Novolog) 0 unit SC [facility] PRN Reason: Protocol Last Admin: 12/10/16 17:25 Dose: 1 unit Insulin Glargine (Lantus) 16 unit SC [facility] Last Admin: 12/09/16 23:12 Dose: 16 u Isosorbide Mononitrate (Imdur) 60 mg PO DAILY [facility] Last Admin: 12/10/16 11:08 Dose: 60 mg Levothyroxine Sodium (Synthroid) 50 mcg PO 0630 [facility] Last Admin: 12/10/16 05:41 Dose: 50 mcg Multivitamins (Hexavitamin) 1 tab PO DAILY [facility] Last Admin: 12/10/16 11:08 Dose: 1 tab Ranolazine (Ranexa) 500 mg PO BID [facility] Last Admin: 12/10/16 11:06 Dose: 500 mg Rosuvastatin Calcium (Crestor) 10 mg PO [facility] Last Admin: 12/09/16 21:56 Dose: 10 mg Sertraline HCl (Zoloft) 50 mg PO DAILY [facility] Last Admin: 12/10/16 11:08 Dose: 50 mg Sevelamer Carbonate (Renvela) 2.4 gm PO TIDCC [facility] Last Admin: 12/10/16 13:21 Dose: Not Given - Labs Labs: 12/09/16 07:57 12/10/16 12:31 PT 13.5 SECONDS (9.7-12.2) H 12/08/16 10:36 INR 1.2 12/08/16 10:36 APTT 34 SECONDS (21-34) 12/08/16 10:36 - Constitutional Appears: Non-toxic - Head Exam Head Exam: NORMAL INSPECTION - Eye Exam Eye Exam: Normal appearance Additional comments: legaly blind - ENT Exam ENT Exam: Normal External Ear Exam - Neck Exam Neck Exam: Full ROM - Respiratory Exam Respiratory Exam: Decreased Breath Sounds, Clear to Ausculation Bilateral - Cardiovascular Exam Cardiovascular Exam: REGULAR RHYTHM - GI/Abdominal Exam GI & Abdominal Exam: Normal Bowel Sounds - Rectal Exam Rectal Exam: NORMAL INSPECTION - Back Exam Back Exam: CVA tenderness (L), NORMAL INSPECTION - Psychiatric Exam Psychiatric exam: Normal Affect - Skin Skin Exam: Normal Color Assessment and Plan - Assessment and Plan (Free Text) Assessment: hyper [place] esrf dm copd cad Plan: keoxalate orderd
[2016-12-10] MEDS: (Lantus) Insulin Glargine, Recombinant SC SCH (21:54)
[2016-12-11] MEDS: HYDROmorphone 1 mg/ml ISec IVP PRN ×3 (06:04→18:15)
[2016-12-11] MEDS: Levothyroxine 50 MCG TAB PO SCH (06:04)
[2016-12-11] MEDS: Sevelamer Carb 2.4 gm/Packet PO SCH ×3 (08:30→17:00)
[2016-12-11] MEDS: (Novolog) Insulin Aspart, Recombinant 100 u/ml 10 ml vial SC SCH ×3 (08:35→16:30)
[2016-12-11 10:42] LABS: POTASSIUM 4.4 mmol/L (3.6-5.2)
[2016-12-11 10:46] LABS: CALCIUM 7.8 mg/dl (8.6-10.4)
[2016-12-11] MEDS: Ranolazine 500 mg Extended Release Tablets PO SCH ×2 (11:02→18:17)
[2016-12-11] MEDS: Epoetin Alfa 10,000 unit/ml Dialysis IV SCH (11:02)
--- NOTE | 2016-12-11 11:18 | CP.PCM.DIS ---
Provider - Provider Date of Admission: 12/08/16 11:16 Attending physician: Sybil Li MD Primary care physician: pt admited for sob worse chest pain dm esrf and k was very hi had more dialysis bs moitered ekg a[place]ia stable as befire see by property consultant natalie will d.c home on dsame med and pt and home care f/u in ofice ass chf cad [place] copd esrf Time Spent in preparation of Discharge (in minutes): 20 Hospital Course - Lab Results Lab Results: Most Recent Lab Values WBC 9.7 K/uL (4.8-10.8) 12/09/16 07:57 RBC 3.15 Mil/uL (4.40-5.90) L 12/09/16 07:57 Hgb 9.1 g/dL (12.0-18.0) L 12/09/16 07:57 Hct 27.9 % (35.0-51.0) L 12/09/16 07:57 MCV 88.6 fL (80.0-94.0) 12/09/16 07:57 MCH 28.8 pg (27.0-31.0) 12/09/16 07:57 MCHC 32.5 g/dL (33.0-37.0) L 12/09/16 07:57 RDW 19.9 % (11.5-14.5) H 12/09/16 07:57 Plt Count 154 K/uL (130-400) 12/09/16 07:57 MPV 8.6 fL (7.2-11.7) 12/09/16 07:57 Neut % (Auto) 65.3 % (50.0-75.0) 12/09/16 07:57 Lymph % (Auto) 23.3 % (20.0-40.0) 12/09/16 07:57 Maries % (Auto) 6.0 % (0.0-10.0) 12/09/16 07:57 Eos % (Auto) 4.8 % (0.0-4.0) H 12/09/16 07:57 Baso % (Auto) 0.6 % (0.0-2.0) 12/09/16 07:57 Neut # 6.3 K/uL (1.8-7.0) 12/09/16 07:57 Lymph # 2.3 K/uL (1.0-4.3) 12/09/16 07:57 Maries # 0.6 K/uL (0.0-0.8) 12/09/16 07:57 Eos # 0.5 K/uL (0.0-0.7) 12/09/16 07:57 Baso # 0.1 K/uL (0.0-0.2) 12/09/16 07:57 PT 13.5 SECONDS (9.7-12.2) H 12/08/16 10:36 INR 1.2 12/08/16 10:36 APTT 34 SECONDS (21-34) 12/08/16 10:36 pO2 50 mm/Hg (30-55) 12/08/16 10:52 VBG pH 7.27 (7.32-7.43) L 12/08/16 10:52 VBG pCO2 49 mmHg (40-60) 12/08/16 10:52 VBG HCO3 20.8 mmol/L 12/08/16 10:52 VBG Total CO2 24.0 mmol/L (22-28) 12/08/16 10:52 VBG O2 Sat (Calc) 88.4 % (40-65) H 12/08/16 10:52 VBG Base Excess -4.7 mmol/L (0.0-2.0) L 12/08/16 10:52 VBG Potassium 6.1 mmol/L (3.6-5.2) H 12/08/16 10:52 Sodium 135.0 mmol/l (132-148) 12/08/16 10:52 Chloride 104.0 mmol/L (98-107) 12/08/16 10:52 Glucose 286 mg/dl (75-110) H 12/08/16 10:52 Lactate 0.5 mmol/L (0.7-2.1) L 12/08/16 10:52 Sodium 137 mmol/L (132-148) 12/11/16 10:18 Potassium 4.4 mmol/L (3.6-5.2) 12/11/16 10:18 Chloride 91 mmol/L (98-107) L 12/11/16 10:18 Carbon Dioxide 31 mmol/L (22-30) H 12/11/16 10:18 Anion Gap 19 (10-20) 12/11/16 10:18 BUN 27 mg/dL (9-20) H 12/11/16 10:18 Creatinine 3.7 MG/DL (0.8-1.5) H 12/11/16 10:18 Est GFR ( Amer) 23 12/11/16 10:18 Est GFR (Non-Af Amer) 19 12/11/16 10:18 POC Glucose (mg/dL) 118 mg/dL (65-110) H 12/11/16 06:41 Random Glucose 172 mg/dL (75-110) H 12/11/16 10:18 Calcium 7.8 mg/dl (8.6-10.4) L 12/11/16 10:18 Phosphorus 4.9 mg/dL (2.5-4.5) H 12/08/16 10:36 Magnesium 2.4 mg/dL (1.6-2.3) H 12/08/16 10:36 Total Bilirubin 0.4 mg/dL (0.2-1.3) 12/10/16 12:31 AST 18 U/L (17-59) 12/10/16 12:31 ALT 8 U/L (21-72) L 12/10/16 12:31 Alkaline Phosphatase 116 U/L (38-126) 12/10/16 12:31 Total Protein 7.3 g/dL (6.3-8.3) 12/10/16 12:31 Albumin 4.1 g/dL (3.5-5.0) 12/10/16 12:31 Globulin 3.1 gm/dL (2.2-3.9) 12/10/16 12:31 Albumin/Globulin Ratio 1.3 (1.0-2.1) 12/10/16 12:31 Venous Blood Potassium 6.1 mmol/L (3.6-5.2) H 12/08/16 10:52 Discharge Exam - Head Exam Head Exam: NORMAL INSPECTION Discharge Plan - Follow Up Plan Condition: SERIOUS Disposition: HOME/ ROUTINE
[2016-12-11] MEDS: Multiple Vitamins Tab PO SCH (12:15)
--- NOTE | 2016-12-11 12:36 | CP.PCM.PN ---
Subjective - Date & Time of Evaluation Date of Evaluation: 12/11/16 Time of Evaluation: 11:00 - Subjective Subjective: Seen on dialysis Pt states that his breathing is getting better Objective - Vital Signs/Intake and Output Vital Signs (last 24 hours): Temp Pulse Resp BP Pulse Ox 97.8 F 81 20 170/77 H 98 12/11/16 07:00 12/11/16 11:45 12/11/16 07:00 12/11/16 11:45 12/11/16 10:15 Intake and Output: 12/11/16 12/11/16 06:59 18:59 Intake Total 240 Balance 240 - Medications Medications: Current Medications Amlodipine Besylate (Norvasc) 10 mg PO DAILY [facility] Last Admin: 12/11/16 12:15 Dose: Not Given Aspirin (Aspirin Chewable) 81 mg PO DAILY [facility] Last Admin: 12/11/16 12:15 Dose: Not Given Calcitriol (Rocaltrol) 0.25 mcg PO DAILY [facility] Last Admin: 12/11/16 12:16 Dose: Not Given Carvedilol (Coreg) 25 mg PO BID [facility] Last Admin: 12/11/16 12:15 Dose: Not Given Clopidogrel Bisulfate (Plavix) 75 mg PO DAILY [facility] Last Admin: 12/11/16 12:16 Dose: Not Given Docusate Sodium (Colace) 100 mg PO HS PRN PRN Reason: Constipation Epoetin Tom (Procrit) 10,000 unit IV TTS [facility] Last Admin: 12/11/16 11:02 Dose: 10,000 unit Famotidine (Pepcid) 20 mg PO DAILY [facility] Last Admin: 12/10/16 11:08 Dose: 20 mg Gabapentin (Neurontin) 300 mg PO BID [facility] Last Admin: 12/11/16 12:15 Dose: Not Given Heparin Sodium (Porcine) (Heparin) 5,000 units SC Q12 [facility] Last Admin: 12/11/16 12:15 Dose: Not Given Hydralazine HCl (Apresoline) 100 mg PO Q8 [facility] Last Admin: 12/11/16 06:04 Dose: 100 mg Hydromorphone HCl (Dilaudid) 1 mg IVP Q6H PRN PRN Reason: Pain, moderate (4-7) Last Admin: 12/11/16 12:13 Dose: 1 mg Insulin Aspart (Novolog) 0 unit SC ACHS [facility] PRN Reason: Protocol Last Admin: 12/09/16 21:53 Dose: Not Given Insulin Aspart (Novolog) [address] [facility] PRN Reason: Protocol Last Admin: 12/11/16 08:35 Dose: Not Given Insulin Glargine (Lantus) 16 unit SC HS [facility] Last Admin: 12/10/16 21:54 Dose: Not Given Isosorbide Mononitrate (Imdur) 60 mg PO DAILY [facility] Last Admin: 12/11/16 12:15 Dose: Not Given Levothyroxine Sodium (Synthroid) 50 mcg PO 0630 [facility] Last Admin: 12/11/16 06:04 Dose: 50 mcg Multivitamins (Hexavitamin) 1 tab PO DAILY [facility] Last Admin: 12/11/16 12:15 Dose: Not Given Ranolazine (Ranexa) 500 mg PO BID [facility] Last Admin: 12/11/16 11:02 Dose: 500 mg Rosuvastatin Calcium (Crestor) 10 mg PO HS [facility] Last Admin: 12/10/16 21:58 Dose: 10 mg Sertraline HCl (Zoloft) 50 mg PO DAILY [facility] Last Admin: 12/11/16 12:16 Dose: Not Given Sevelamer Carbonate (Renvela) 2.4 gm PO TIDCC [facility] Last Admin: 12/11/16 12:16 Dose: Not Given - Labs Labs: 12/09/16 07:57 12/11/16 10:18 PT 13.5 SECONDS (9.7-12.2) H 12/08/16 10:36 INR 1.2 12/08/16 10:36 APTT 34 SECONDS (21-34) 12/08/16 10:36 - Respiratory Exam Additional comments: Lungs clear - Cardiovascular Exam Cardiovascular Exam: REGULAR RHYTHM - Extremities Exam Additional comments: B/L BKA Assessment and Plan - Assessment and Plan (Free Text) Assessment: ESRD HTN CAD IDDM Plan: Will continue HD schedule of TTS Monitor BP Hb is stable
[2016-12-11 15:54] VITALS: RESP 20; TEMP 98; O2SAT 100
[2016-12-11 23:37] VITALS: BP 168/84; PULSE 86
--- NOTE | 2016-12-20 08:04 | PCM.HF ---
Heart Failure Core Measure - Heart Failure Ejection Fraction: 40 % or Greater RAÚL Inhibitor Prescribed: No Contraindication/Reason for not providing: ef>45/ESRD Beta-Andrew Prescribed: Carvedilol Angiotensin II Receptor Andrew Prescribed: No Contraindication/Reason for not providing: EF>45/ESRD AnticoagulationTherapy for Atrial Fibrillation/Atrialflutter: Yes Aldosterone Antagonist Prescribed: No Contraindication/Reason for not providing: EF>45/ RISK FOR HYPERKALEMIA Hydralazine Nitrate Prescribed: Yes Implantable Cardioverter Defibrillator Therapy: No Contraindication/Reason for not providing: EF>45 Cardiac Resynchronization Therapy Prescribed: No Contraindication/Reason for not providing: EF>45 - Follow up Will be discharged to: Home Follow Up Date (must be within 7 days from discharge): 12/13/16 Follow Up Time: 09:00
== END 2016-12-11 22:20 | disposition home or self-care (01) | DRG 127 ==
LOC: C.ER 10:02 → C.9E 11:16 → C.5T 16:34
PROVIDERS: ADMIT Internal Medicine; ATTEND Internal Medicine
PROC: 5A1D00Z (ICD-10-PCS; principal; 2016-12-10)
DX: I13.2 Hypertensive heart and chronic kidney disease with heart failure and with stage 5 chronic kidney disease, or end stage renal disease (principal); N18.6 End stage renal disease; E11.22 Type 2 diabetes mellitus with diabetic chronic kidney disease; I50.9 Heart failure, unspecified; E87.5 Hyperkalemia; J44.9 Chronic obstructive pulmonary disease, unspecified; E05.90 Thyrotoxicosis, unspecified without thyrotoxic crisis or storm; E11.65 Type 2 diabetes mellitus with hyperglycemia; L97.419 Non-pressure chronic ulcer of right heel and midfoot with unspecified severity; G30.9 Alzheimer's disease, unspecified; F02.80 Dementia in other diseases classified elsewhere, unspecified severity, without behavioral disturbance, psychotic disturbance, mood disturbance, and anxiety; I48.91 Unspecified atrial fibrillation; Z99.2 Dependence on renal dialysis; I25.10 Atherosclerotic heart disease of native coronary artery without angina pectoris; Z95.1 Presence of aortocoronary bypass graft; D64.9 Anemia, unspecified; Z86.73 Personal history of transient ischemic attack (TIA), and cerebral infarction without residual deficits; E78.00 Pure hypercholesterolemia, unspecified; E03.9 Hypothyroidism, unspecified; J45.909 Unspecified asthma, uncomplicated; H54.8 Legal blindness, as defined in USA; I70.234 Atherosclerosis of native arteries of right leg with ulceration of heel and midfoot; F55.8 Abuse of other non-psychoactive substances; Z79.4 Long term (current) use of insulin

== ENCOUNTER 2016-12-18 10:39 | Inpatient (IN) | payer OTHER ==
[2016-12-18 10:39] VITALS: PULSE 66; BMI 20.7
[2016-12-18 11:43] LABS: BASO # 0.1 K/uL (0.0-0.2); EOS # 0.4 K/uL (0.0-0.7); EOS % 3.6 % (0.0-4.0); LYMPH % 16.7 % (20.0-40.0); MEAN CORPUSCULAR HGB CONC 31.3 g/dL (33.0-37.0); MEAN PLATELET VOLUME 8.6 fL (7.2-11.7); MONO # 0.6 K/uL (0.0-0.8); MONO % 4.9 % (0.0-10.0); RED CELL DISTRIBUTION WIDTH 20.2 % (11.5-14.5); WHITE BLOOD COUNT 11.7 K/uL (4.8-10.8)
[2016-12-18 11:47] LABS: MEAN CELL VOLUME 92.8 fL (80.0-94.0)
[2016-12-18 11:56] LABS: ALB/GLOB RATIO 1.3 (1.0-2.1); AST/SGOT 22 U/L (17-59); BILIRUBIN,TOTAL 0.5 mg/dL (0.2-1.3); CARBON DIOXIDE 19 mmol/L (22-30); GFR AFRICAN-AMERICAN 11; TOTAL PROTEIN 6.8 g/dL (6.3-8.3)
[2016-12-18 11:57] LABS: ALKALINE PHOSPHATASE 150 U/L (38-126); ALT/SGPT 8 U/L (21-72); BLOOD UREA NITROGEN 87 mg/dL (9-20); CALCIUM 9.3 mg/dl (8.6-10.4)
[2016-12-18] MEDS ORDERED: (Novolin R) Insulin Human Regular 100 units/ml vial IV ONE (11:59)
[2016-12-18] MEDS ORDERED: HYDROmorphone 1 mg/ml ISec IVP STA (12:02)
[2016-12-18 12:06] LABS: GLUCOSE,RANDOM 409 mg/dL (75-110)
[2016-12-18 12:09] LABS: CHLORIDE 94 mmol/L (98-107); POTASSIUM 5.8 mmol/L (3.6-5.2); SODIUM 130 mmol/L (132-148)
--- NOTE | 2016-12-18 12:11 | RAD ---
HISTORY: SOB COMPARISON: Chest x-ray performed 12/08/16 TECHNIQUE: Chest, one view. FINDINGS: Right-sided dialysis catheter in stable position. LUNGS: Moderate to severe pulmonary venous congestion with confluent airspace consolidation re-identified in the left lung. Small to moderate left pleural effusion. No definite pneumothorax. Please note that chest x-ray has limited sensitivity for the detection of pulmonary masses. CARDIOVASCULAR: Median sternotomy wires. Cardiomegaly. OSSEOUS STRUCTURES: No acute osseous abnormality identified. VISUALIZED UPPER ABDOMEN: Unremarkable. OTHER FINDINGS: None. IMPRESSION: Median sternotomy wires. Cardiomegaly. Moderate to severe pulmonary venous congestion with confluent airspace consolidation re-identified in the left lung. Small to moderate left pleural effusion. Right-sided dialysis catheter.
[2016-12-18] MEDS ORDERED: HYDROmorphone 1 mg/ml ISec ONE (12:17)
[2016-12-18 12:20] LABS: INR 1.3
[2016-12-18] MEDS ORDERED: (Novolin R) Insulin Human Regular 100 units/ml vial ONE (12:37)
--- NOTE | 2016-12-18 13:40 | CP.PCM.HP ---
History of Present Illness - History of Present Illness History of Present Illness: CHEST PAIN SOB PAINFUL SUCUTANEOS NODULS Present on Admission - Present on Admission Any Indicators Present on Admission: Yes Review of Systems - Review of Systems Systems not reviewed;Unavailable: Respiratory Distress - Constitutional Constitutional: Fatigue - EENT Ears: As Per HPI Nose/Mouth/Throat: As Per HPI - Cardiovascular Cardiovascular: As Per HPI - Respiratory Respiratory: As Per HPI, Dyspnea on Exertion, Chest Congestion - Gastrointestinal Gastrointestinal: As Per HPI - Genitourinary Genitourinary: As Per HPI - Reproductive: Male Reproductive:Male: As Per HPI - Musculoskeletal Musculoskeletal: As Per HPI Additional comments: S/P LITO AMPUTATION - Integumentary Integumentary: As Per HPI - Neurological Neurological: As Per HPI - Psychiatric Additional comments: DEPRESION - Endocrine Additional Comments: DIABETES UNCONTROLED Past Patient History - Infectious Disease Hx of Infectious Diseases: MRSA - Tetanus Immunizations Tetanus Immunization: >10 years Ago - Past Medical History & Family History Past Medical History?: Yes - Past Social History Smoking Status: Never Smoked - CARDIAC Hx Atrial Fibrillation: Yes Hx Cardia Arrhythmia: Yes Hx Congestive Heart Failure: Yes Hx Hypercholesterolemia: Yes Hx Hypertension: Yes - PULMONARY Hx Asthma: Yes Hx Bronchitis: Yes Hx Chronic Obstructive Pulmonary Disease (COPD): Yes Hx Pneumonia: No - NEUROLOGICAL Hx Alzheimer's Disease: Yes Hx Seizures: Yes - HEENT Hx HEENT Problems: Yes Hx Blind: Yes (legally blind) Hx Cataracts: Yes - RENAL Hx Chronic Kidney Disease: Yes - ENDOCRINE/METABOLIC Hx Hyperthyroidism: Yes Hx Hypothyroidism: Yes - HEMATOLOGICAL/ONCOLOGICAL Hx Anemia: Yes Hx Human Immunodeficiency Virus (HIV): No - INTEGUMENTARY Hx Dermatological Problems: No - MUSCULOSKELETAL/RHEUMATOLOGICAL Hx Arthritis: Yes - GASTROINTESTINAL Hx Gall Bladder Disease: Yes - GENITOURINARY/GYNECOLOGICAL Hx Sexually Transmitted Disorders: No - PSYCHIATRIC Hx Anxiety: Yes Hx Depression: Yes Hx Substance Use: No - SURGICAL HISTORY Hx Cholecystectomy: Yes (2011) 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/2009) Hx Coronary Stent: Yes (X3) - ANESTHESIA Hx Anesthesia: Yes Hx Anesthesia Reactions: No Hx Malignant Hyperthermia: No Meds Allergies/Adverse Reactions: Allergies Allergy/AdvReac Type Severity Reaction Status Date / Time acetaminophen [From Percocet] Allergy RASH Verified 12/18/16 10:59 atenolol Allergy RASH Verified 12/18/16 10:59 digoxin Allergy RASH Verified 12/18/16 10:59 milk Allergy ITCHING Verified 12/18/16 10:59 morphine Allergy ITCHING Verified 12/18/16 10:59 oxycodone HCl [From Percocet] Allergy RASH Verified 12/18/16 10:59 Physical Exam - Constitutional Appears: In Acute Distress - Head Exam Head Exam: ATRAUMATIC - Eye Exam Additional comments: LEGALY BLIND - ENT Exam ENT Exam: Mucous Membranes Dry - Neck Exam Neck exam: Positive for: Full Rom - Respiratory Exam Respiratory Exam: Decreased Breath Sounds, Rales - Cardiovascular Exam Cardiovascular Exam: REGULAR RHYTHM - GI/Abdominal Exam GI & Abdominal Exam: Normal Bowel Sounds - Exam Exam: NORMAL INSPECTION - Extremities Exam Additional comments: AMUTATUON - Back Exam Back exam: CVA tenderness (L) - Psychiatric Exam Psychiatric exam: Depressed - Skin Skin Exam: Petechiae Additional comments: TENDER SC NODULS Results - Vital Signs Recent Vital Signs: Last Vital Signs Temp 97.8 F 12/18/16 10:54 Pulse 63 12/18/16 10:54 Resp 18 12/18/16 10:54 BP 199/54 H 12/18/16 10:54 Pulse Ox 100 12/18/16 10:54 - Labs Result Diagrams: 12/18/16 11:36 12/18/16 11:36 Assessment & Plan - Assessment and Plan (Free Text) Assessment: REC CHEST PAIN CHF ESRF COPD UNCONTROLED DMID Plan: ADMIT TO TELE - Date & Time Date: 12/18/16 Time: 13:44
--- NOTE | 2016-12-18 13:41 | C.PDOC ---
History Of Present Illness 36 y/o male brought in by EMS from [facility] for evaluation of chest pain and worsening SOB since this morning. Aspirin and sublingual nitro were given in the field, which relieved chest pain. Patient still c/o current SOB - is due for dialysis today, last received 3 days ago. Pt denies cough, fever, abdominal pain, headache, nausea/vomiting. Time Seen by Provider: 12/18/16 11:07 Chief Complaint (Nursing): Chest Pain History Per: Patient History/Exam Limitations: no limitations Onset/Duration Of Symptoms: Hrs Current Symptoms Are (Timing): Better Severity: Moderate Quality: "Pain" Nitro Therapy Administered: 1, Per EMS Recent travel outside of the [place]: No Past Medical History Reviewed: Historical Data, Nursing Documentation, Vital Signs Vital Signs: Last Vital Signs Temp 98.1 F 12/23/16 16:31 Pulse 90 12/23/16 16:31 Resp 20 12/23/16 16:31 BP 115/53 L 12/23/16 16:31 Pulse Ox 98 12/23/16 16:31 - Medical History PMH: Alzheimer's Disease, Anemia, Anxiety, Arthritis, Asthma, Atrial Fibrillation, Bronchitis, CAD, Cardia Arrhythmia, CHF, COPD, CVA, Depression, Diabetes, Deep Vein Thrombosis, Gastrointestinal Ulcer, Gall Bladder Disease, HTN, Hypercholesterolemia, Hyperthyroidism, Hypothyroidism, End Stage Renal Disease (on dialysis Sat//Sat.), Chronic Kidney Disease, Seizures Surgical History: CABG (12/2009), Cholecystectomy (2011), Coronary Stent (X3) - [facility] Procedures ABDOMINAL WALL SINOGRAM (12/31/13) C.A.T. SCAN OF ABDOMEN (10/31/13) CENTRAL VENOUS CATHETER PLACEMENT WITH GUIDANCE (02/10/15) DILATE R ANT TIB ART W DRUG-ELUT INTRALUM, PERC (08/12/15) DILATION OF LEFT FEMORAL ARTERY, PERCUTANEOUS APPROACH (07/04/16) DILATION OF RIGHT FEMORAL ARTERY, PERCUTANEOUS APPROACH (08/12/15) DILATION OF RIGHT POPLITEAL ARTERY, PERCUTANEOUS APPROACH (08/12/15) DX ULTRASOUND-HEART (01/05/13) ENTERAL INFUSION OF CONCENTRATED NUT. SUBSTANCES (06/28/13) EXCIS DEBRIDE OF WOUND, INFECT, OR BURN (08/03/14) EXTIRPATION OF MATTER FROM L FEM ART, PERC APPROACH (07/04/16) EXTIRPATION OF MATTER FROM R FEM ART, PERC APPROACH (08/12/15) EXTIRPATION OF MATTER FROM R POPL ART, PERC APPROACH (08/12/15) FLUOROSCOPY OF L LOW EXTREM ART USING L OSM CONTRAST (08/12/15) FLUOROSCOPY OF R LOW EXTREM ART USING L OSM CONTRAST (08/12/15) FREE SKIN GRAFT NEC (08/03/14) HEAD SOFT TISS X-RAY NEC (04/15/13) HEMODIALYSIS (04/28/15) INCIS W REM OF FORIEGN BODY OR DEV FROM SKIN & SUBCUT TISSUE (08/08/13) INSERTION OF INFUSION DEV INTO R SUBCLAV VEIN, PERC APPROACH (01/19/16) INTRODUCE OF OTH THROMBOLYTIC INTO PERIPH ART, PERC APPROACH (08/12/15) LAPAROSCOPIC CHOLECYSTECTOMY (09/21/13) LOC EXC LES METATAR/TAR (06/01/14) PACKED CELL TRANSFUSION (06/01/14) PERCUTAN LIVER ASPIRAT (12/31/13) PERFORMANCE OF URINARY FILTRATION, MULTIPLE (07/19/16) PERFORMANCE OF URINARY FILTRATION, SINGLE (12/08/16) SKIN & SUBQ INCISION NEC (10/24/14) TETANUS TOXOID ADMINIST (06/13/14) VENOUS CATHETERIZATION FOR RENAL DIALYSIS (08/08/13) VENOUS CATHETERIZATION NEC (04/30/13) Family History: States: No Known Family Hx - Social History Hx Tobacco Use: No Hx Alcohol Use: No Hx Substance Use: No - Immunization History Hx Tetanus Toxoid Vaccination: Yes Hx Influenza Vaccination: Yes Hx Pneumococcal Vaccination: Yes Review Of Systems Except As Marked, All Systems Reviewed And Found Negative. Constitutional: Negative for: Fever, Chills Cardiovascular: Positive for: Chest Pain (resolved). Negative for: Palpitations Respiratory: Positive for: Shortness of Breath. Negative for: Cough Gastrointestinal: Negative for: Nausea, Vomiting, Abdominal Pain, Diarrhea Neurological: Negative for: Headache Physical Exam - Physical Exam Appears: Non-toxic, In Acute Distress (in mild distress), Chronically Ill Skin: Warm, Dry, No Rash Head: Normacephalic Oral Mucosa: Moist Neck: Supple Cardiovascular: Rhythm Regular, No Murmur Respiratory: No Accessory Muscle Use, Rales (at bases bilaterally), No Rhonchi, No Wheezing Gastrointestinal/Abdominal: Normal Exam, Bowel Sounds, Soft, No Tenderness, No Guarding, No Rebound Extremity: Other (Left arm AV fistula with palpable thrill. Right leg BKA, left leg AKA. ) Neurological/Psych: Oriented x3 ED Course And Treatment - Laboratory Results Result Diagrams: 12/20/16 13:16 12/19/16 06:43 ECG: Interpreted By Me, Viewed By Me ECG Rhythm: Sinus Rhythm ECG Interpretation: Abnormal Interpretation Of ECG: T wave inversions, no ST wave changes; unchanged from prior 12/08/16 Rate From EC (BPM) O2 Sat by Pulse Oximetry: 100 (on room air) Pulse Ox Interpretation: Normal - Radiology CXR: Interpreted by Me, Viewed By Me (pulmonary vascular congestion, no infiltrates) Progress Note: Plan: Blood work, EKG, CXR ordered and reviewed. Patient given IV dilaudid for pain, and IV insulin for hyperglycemia. - Physician Consult Information Physician Contacted: Sybil Li Outcome Of Conversation: Discussed patient with PMD, she agrees with telemetry admission to her service. Will enter nephrology consult for patient to get dialysis/ Disposition - Disposition Disposition: HOSPITALIZED Disposition Time: 13:13 Condition: STABLE - Clinical Impression Clinical Impression: Chest pain, Congestive heart failure, Uncontrolled diabetes mellitus, Fluid overload, Dyspnea - Scribe Statement The provider has reviewed the documentation as recorded by the Fabiola Bryson Provider Attestation: All medical record entries made by the Fabiola were at my direction and personally dictated by me. I have reviewed the chart and agree that the record accurately reflects my personal performance of the history, physical exam, medical decision making, and the department course for this patient. I have also personally directed, reviewed, and agree with the discharge instructions and disposition. Decision To Admit - Pt Status Changed To: Hospital Disposition Of: Inpatient - Admit Certification Admit to Inpatient:: After my assessment, the patient will require hospitalization for at least two midnights. This is because of the severity of symptoms shown, intensity of services needed, and/or the medical risk in this patient being treated as an outpatient. - InPatient: Physician Admission Certification: I certify that this patient requires 2 or more midnights of care for the following reason:: see notes - . Bed Request Type: Telemetry Admitting Physician: Sybil iL Patient Diagnosis: Chest pain, Congestive heart failure, Uncontrolled diabetes mellitus, Fluid overload, Dyspnea
[2016-12-18] MEDS: HYDROmorphone 1 mg/ml ISec IVP PRN ×2 (18:03→23:42)
[2016-12-18] MEDS ORDERED: Epoetin Alfa Dialysis 3000 UNIT/ML Inj IV SCH (22:15)
[2016-12-18] MEDS: (Novolin R) Insulin Human Regular 100 units/ml vial SC SCH (23:01)
[2016-12-19] MEDS: HYDROmorphone 1 mg/ml ISec IVP PRN ×4 (05:12→23:19)
[2016-12-19 06:54] LABS: HEMATOCRIT 24.9 % (35.0-51.0); MEAN CELL VOLUME 91.1 fL (80.0-94.0); MEAN CORPUSCULAR HEMOGLOBIN 29.4 pg (27.0-31.0); MEAN CORPUSCULAR HGB CONC 32.2 g/dL (33.0-37.0); MEAN PLATELET VOLUME 8.8 fL (7.2-11.7); RED CELL DISTRIBUTION WIDTH 20.5 % (11.5-14.5); WHITE BLOOD COUNT 9.9 K/uL (4.8-10.8)
[2016-12-19 07:30] LABS: POTASSIUM 4.1 mmol/L (3.6-5.2)
[2016-12-19 07:34] LABS: CALCIUM 8.2 mg/dl (8.6-10.4)
[2016-12-19] MEDS: (Novolin R) Insulin Human Regular 100 units/ml vial SC SCH ×4 (08:16→22:00)
[2016-12-19] MEDS: Pantoprazole 40 mg EC Tab PO SCH (09:53)
--- NOTE | 2016-12-19 11:55 | CARD ---
APPROVED REPORT EKG Measurement Heart [id number] <Conclusion> Normal sinus rhythm ST & T wave abnormality, consider lateral ischemia Abnormal ECG
--- NOTE | 2016-12-19 14:35 | CP.PCM.CON ---
History of Present Illness - History of Present Illness History of Present Illness: 36-year-old male, presents to the emergency department with reports of CP and SOB and again HTN; he has been noted to miss HD sessions in past and recently in hospital for pneumonia. This episode was described as 'aching in the lungs' from coughing and tiredness with breathin. He laso complains of chronic chest wall aches but not pressure, diaphoresis or syncope. * H/H was 10.3 12/01/16 and now 8.0 * He again had elevated sugars on admission Currently he is no respiratory distress, no arrythmia on tele. No CP, cough, abd pain or fever pmhx is extensive for 1. CAD s/p CABG with subsequent closure of vein grafts and then had RCA stent. Non-revascularizable coronaries. 2. HTN uncontrolled: labile 3. DM uncontrolled (non compliant with diet) 4. PAD s/p L. BKA abd R. ray amputation and chronic R. heel ulcer; hx of R.SFA/ popliteal angioplasty and AT stent with eventual R. BKA. 5. kleinfelters 6. ASX moderate pulmonary stenosis 7. hx of chronic pain, hx of liver abscess and infections 8. legally blind 9. Pain medication dependence 10. Hx of non-compliance with missed HD in the past SOCHX: No Tobacco, ETOH or DRUBG abuse PSHX: as above ROS: legally blind, B/K BKA Past Patient History - Infectious Disease Hx of Infectious Diseases: MRSA - Tetanus Immunizations Tetanus Immunization: >10 years Ago - Past Medical History & Family History Past Medical History?: Yes - Past Social History Smoking Status: Never Smoked - CARDIAC Hx Atrial Fibrillation: Yes Hx Cardia Arrhythmia: Yes Hx Congestive Heart Failure: Yes Hx Hypercholesterolemia: Yes Hx Hypertension: Yes - PULMONARY Hx Asthma: Yes Hx Bronchitis: Yes Hx Chronic Obstructive Pulmonary Disease (COPD): Yes - NEUROLOGICAL Hx Alzheimer's Disease: Yes Hx Seizures: Yes - HEENT Hx HEENT Problems: Yes Hx Blind: Yes (legally blind) Hx Cataracts: Yes - RENAL Hx Chronic Kidney Disease: Yes Type of Dialysis Access: right subclavian perma cath Date of Last Dialysis Treatment: 12/13/16 Hx Kidney Stones: No - ENDOCRINE/METABOLIC Hx Diabetes Mellitus Type 1: Yes Hx Hyperthyroidism: Yes Hx Hypothyroidism: Yes - HEMATOLOGICAL/ONCOLOGICAL Hx Anemia: Yes - INTEGUMENTARY Hx Dermatological Problems: No - MUSCULOSKELETAL/RHEUMATOLOGICAL Hx Arthritis: Yes Hx Falls: No - GASTROINTESTINAL Hx Gall Bladder Disease: Yes - GENITOURINARY/GYNECOLOGICAL Hx Sexually Transmitted Disorders: No - PSYCHIATRIC Hx Anxiety: Yes Hx Depression: Yes Hx Substance Use: No - SURGICAL HISTORY Hx Cholecystectomy: Yes (2011) 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/2009) Hx Coronary Stent: Yes (X3) - ANESTHESIA Hx Anesthesia: Yes Hx Anesthesia Reactions: No Hx Malignant Hyperthermia: No Meds Allergies/Adverse Reactions: Allergies Allergy/AdvReac Type Severity Reaction Status Date / Time acetaminophen [From Percocet] Allergy RASH Verified 12/18/16 10:59 atenolol Allergy RASH Verified 12/18/16 10:59 digoxin Allergy RASH Verified 12/18/16 10:59 milk Allergy ITCHING Verified 12/18/16 10:59 morphine Allergy ITCHING Verified 12/18/16 10:59 oxycodone HCl [From Percocet] Allergy RASH Verified 12/18/16 10:59 - Medications Medications: Current Medications Amlodipine Besylate (Norvasc) 10 mg PO DAILY [facility] Last Admin: 12/19/16 09:54 Dose: Not Given Aspirin (Aspirin Chewable) 81 mg PO DAILY [facility] Last Admin: 12/19/16 09:53 Dose: 81 mg Calcitriol (Rocaltrol) 0.25 mcg PO DAILY [facility] Last Admin: 12/19/16 09:54 Dose: 0.25 mcg Clopidogrel Bisulfate (Plavix) 75 mg PO DAILY [facility] Last Admin: 12/19/16 09:53 Dose: 75 mg Epoetin Tom (Procrit) 3,000 unit IV TTS [facility] Last Admin: 12/18/16 22:54 Dose: 3,000 unit Hydralazine HCl (Apresoline) 100 mg PO Q8 [facility] Last Admin: 12/19/16 13:45 Dose: 100 mg Hydromorphone HCl (Dilaudid) 1 mg IVP Q6H PRN PRN Reason: Pain, moderate (4-7) Last Admin: 12/19/16 11:12 Dose: 1 mg Insulin Human Regular (Novolin R) 0 unit SC ACHS [facility] PRN Reason: Protocol Last Admin: 12/19/16 12:53 Dose: Not Given Pantoprazole Sodium (Protonix Ec Tab) 40 mg PO DAILY [facility] Last Admin: 12/19/16 09:53 Dose: 40 mg Physical Exam - Constitutional Appears: No Acute Distress - Head Exam Head Exam: ATRAUMATIC, NORMAL INSPECTION, NORMOCEPHALIC - Eye Exam Eye Exam: absent: Normal appearance (legally blind) Pupil Exam: Irregular - ENT Exam ENT Exam: Mucous Membranes Moist - Neck Exam Neck exam: Negative for: Tenderness, Thyromegaly - Respiratory Exam Respiratory Exam: Clear to Auscultation Bilateral, NORMAL BREATHING PATTERN. absent: Rales, Wheezes - Cardiovascular Exam Cardiovascular Exam: REGULAR RHYTHM, +S1, +S2, Systolic Murmur. absent: JVD - GI/Abdominal Exam GI & Abdominal Exam: Normal Bowel Sounds, Soft. absent: Tenderness - Extremities Exam Extremities exam: Negative for: normal inspection (B/L BKA) - Neurological Exam Neurological exam: Alert, Oriented x3 - Psychiatric Exam Psychiatric exam: Normal Affect, Normal Mood - Skin Skin Exam: Normal Color, Warm Results - Vital Signs Recent Vital Signs: Last Vital Signs Temp 98.7 F 12/19/16 12:00 Pulse 71 12/19/16 14:00 Resp 15 12/19/16 14:00 BP 170/45 H 12/19/16 14:00 Pulse Ox 100 12/19/16 14:00 - Labs Result Diagrams: 12/19/16 06:43 12/19/16 06:43 Labs: Laboratory Results - last 24 hr 12/18/16 12/18/16 12/19/16 16:49 21:27 03:46 WBC RBC Hgb Hct MCV MCH MCHC RDW Plt Count MPV Sodium Potassium Chloride Carbon Dioxide Anion Gap BUN Creatinine Est GFR ( Amer) Est GFR (Non-Af Amer) POC Glucose (mg/dL) 343 H 317 H 225 H Random Glucose Calcium 12/19/16 12/19/16 12/19/16 06:43 08:02 12:05 WBC 9.9 RBC 2.74 L Hgb 8.0 L Hct 24.9 L MCV 91.1 MCH 29.4 MCHC 32.2 L RDW 20.5 H Plt Count 165 MPV 8.8 Sodium 136 Potassium 4.1 Chloride 96 L Carbon Dioxide 24 Anion Gap 19 BUN 44 H Creatinine 4.4 H Est GFR ( Amer) 19 Est GFR (Non-Af Amer) 15 POC Glucose (mg/dL) 215 H 53 L Random Glucose 178 H Calcium 8.2 L 12/19/16 12:30 WBC RBC Hgb Hct MCV MCH MCHC RDW Plt Count MPV Sodium Potassium Chloride Carbon Dioxide Anion Gap BUN Creatinine Est GFR ( Amer) Est GFR (Non-Af Amer) POC Glucose (mg/dL) 79 Random Glucose Calcium - EKG Data EKG Interpreted by: Myself EKG shows normal: Sinus rhythm - EKG Data When Compared to Previous EKG: No Significant Change - Imaging and Cardiology Chest x-ray Status: Image reviewed by me (Moderate to severe pulmonary venous congestion with confluent airspace consolidation re-identified in the left lung. Small to moderate left pleural effusion. ) Assessment & Plan - Assessment and Plan (Free Text) Assessment: CAD: hx of CABG and stent; patient CAD status is stable and should be medically treated wth Coreg,IMDUR/Statin and DAPT. He has normal LV function with chronic diastolic dysfunction. EKG: read by me: NSR, chronic unchanged lateral ST chages, LVH and LAE * CO ruled out * LDL goal 50-70 * Diabetic control * DAPT, ASA, Coreg, Imdur * No active cardiac sx's; cont medical therapy. * No new EKG changes versus prior EKGs: NSR, LVH with strain pattern * Congestion cont volume removal with HD HTN: labile Continue medical treatment as prescribed Remains elevated: add minoxidil 2.5 daily in addition, resume coreg 25 BID DM: labile: Cont medical rx continued education and counseling management per primary team PAD: S/P B/L BKA ASX No signs of ulcer or wound dehiscence ESRD: Hyperkalemia, metabolic acidosis cont maintainence HD, Monitor lytes
--- NOTE | 2016-12-19 16:00 | CP.PCM.CON ---
History of Present Illness - History of Present Illness History of Present Illness: 36 y/o male with ESRD on [facility], CAD. failed CABG Rt RCA stent & nonvascularizable coronaries, ,IDDM with complications presented to ER yesterday for c/o chest pain & kadi. Was again noted to bein pulmonary edema with uncontrolled HTN.. Was dialysed yesterday in the hospital. Pt has had multiple admissions for volume overload . Most recent ad mission was last wk. Did not miss any dialysis since last discharge. Past Patient History - Infectious Disease Hx of Infectious Diseases: MRSA - Tetanus Immunizations Tetanus Immunization: >10 years Ago - Past Medical History & Family History Past Medical History?: Yes - Past Social History Smoking Status: Never Smoked - CARDIAC Hx Atrial Fibrillation: Yes Hx Cardia Arrhythmia: Yes Hx Congestive Heart Failure: Yes Hx Hypercholesterolemia: Yes Hx Hypertension: Yes - PULMONARY Hx Asthma: Yes Hx Bronchitis: Yes Hx Chronic Obstructive Pulmonary Disease (COPD): Yes - NEUROLOGICAL Hx Alzheimer's Disease: Yes Hx Seizures: Yes - HEENT Hx HEENT Problems: Yes Hx Blind: Yes (legally blind) Hx Cataracts: Yes - RENAL Hx Chronic Kidney Disease: Yes Type of Dialysis Access: right subclavian perma cath Date of Last Dialysis Treatment: 12/13/16 Hx Kidney Stones: No - ENDOCRINE/METABOLIC Hx Diabetes Mellitus Type 1: Yes Hx Hyperthyroidism: Yes Hx Hypothyroidism: Yes - HEMATOLOGICAL/ONCOLOGICAL Hx Anemia: Yes - INTEGUMENTARY Hx Dermatological Problems: No - MUSCULOSKELETAL/RHEUMATOLOGICAL Hx Arthritis: Yes Hx Falls: No - GASTROINTESTINAL Hx Gall Bladder Disease: Yes - GENITOURINARY/GYNECOLOGICAL Hx Sexually Transmitted Disorders: No - PSYCHIATRIC Hx Anxiety: Yes Hx Depression: Yes Hx Substance Use: No - SURGICAL HISTORY Hx Cholecystectomy: Yes (2011) 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/2009) Hx Coronary Stent: Yes (X3) - ANESTHESIA Hx Anesthesia: Yes Hx Anesthesia Reactions: No Hx Malignant Hyperthermia: No Meds Allergies/Adverse Reactions: Allergies Allergy/AdvReac Type Severity Reaction Status Date / Time acetaminophen [From Percocet] Allergy RASH Verified 12/18/16 10:59 atenolol Allergy RASH Verified 12/18/16 10:59 digoxin Allergy RASH Verified 12/18/16 10:59 milk Allergy ITCHING Verified 12/18/16 10:59 morphine Allergy ITCHING Verified 12/18/16 10:59 oxycodone HCl [From Percocet] Allergy RASH Verified 12/18/16 10:59 - Medications Medications: Current Medications Amlodipine Besylate (Norvasc) 10 mg PO DAILY [facility] Last Admin: 12/19/16 09:54 Dose: Not Given Aspirin (Aspirin Chewable) 81 mg PO DAILY [facility] Last Admin: 12/19/16 09:53 Dose: 81 mg Calcitriol (Rocaltrol) 0.25 mcg PO DAILY [facility] Last Admin: 12/19/16 09:54 Dose: 0.25 mcg Carvedilol (Coreg) 25 mg PO BID [facility] Clopidogrel Bisulfate (Plavix) 75 mg PO DAILY [facility] Last Admin: 12/19/16 09:53 Dose: 75 mg Epoetin Tom (Procrit) 3,000 unit IV TTS [facility] Last Admin: 12/18/16 22:54 Dose: 3,000 unit Hydralazine HCl (Apresoline) 100 mg PO Q8 [facility] Last Admin: 12/19/16 13:45 Dose: 100 mg Hydromorphone HCl (Dilaudid) 1 mg IVP Q6H PRN PRN Reason: Pain, moderate (4-7) Last Admin: 12/19/16 11:12 Dose: 1 mg Insulin Human Regular (Novolin R) 0 unit SC ACHS [facility] PRN Reason: Protocol Last Admin: 12/19/16 12:53 Dose: Not Given Minoxidil (Minoxidil) 2.5 mg PO DAILY [facility] Pantoprazole Sodium (Protonix Ec Tab) 40 mg PO DAILY [facility] Last Admin: 12/19/16 09:53 Dose: 40 mg Physical Exam - Constitutional Appears: Non-toxic - Head Exam Head Exam: ATRAUMATIC, NORMOCEPHALIC - Eye Exam Additional comments: No icterus - ENT Exam ENT Exam: Mucous Membranes Moist - Neck Exam Additional comments: JVD + - Respiratory Exam Additional comments: Lungs clear - Cardiovascular Exam Cardiovascular Exam: REGULAR RHYTHM - GI/Abdominal Exam GI & Abdominal Exam: Soft Additional comments: No tenderness - Extremities Exam Additional comments: B/L BKA Results - Vital Signs Recent Vital Signs: Last Vital Signs Temp 98.7 F 12/19/16 12:00 Pulse 71 12/19/16 14:00 Resp 15 12/19/16 14:00 BP 170/45 H 12/19/16 14:00 Pulse Ox 100 12/19/16 14:00 - Labs Result Diagrams: 12/19/16 06:43 12/19/16 06:43 Labs: Laboratory Results - last 24 hr 12/18/16 12/18/16 12/19/16 16:49 21:27 03:46 WBC RBC Hgb Hct MCV MCH MCHC RDW Plt Count MPV Sodium Potassium Chloride Carbon Dioxide Anion Gap BUN Creatinine Est GFR ( Amer) Est GFR (Non-Af Amer) POC Glucose (mg/dL) 343 H 317 H 225 H Random Glucose Calcium 12/19/16 12/19/16 12/19/16 06:43 08:02 12:05 WBC 9.9 RBC 2.74 L Hgb 8.0 L Hct 24.9 L MCV 91.1 MCH 29.4 MCHC 32.2 L RDW 20.5 H Plt Count 165 MPV 8.8 Sodium 136 Potassium 4.1 Chloride 96 L Carbon Dioxide 24 Anion Gap 19 BUN 44 H Creatinine 4.4 H Est GFR ( Amer) 19 Est GFR (Non-Af Amer) 15 POC Glucose (mg/dL) 215 H 53 L Random Glucose 178 H Calcium 8.2 L 12/19/16 12:30 WBC RBC Hgb Hct MCV MCH MCHC RDW Plt Count MPV Sodium Potassium Chloride Carbon Dioxide Anion Gap BUN Creatinine Est GFR ( Amer) Est GFR (Non-Af Amer) POC Glucose (mg/dL) 79 Random Glucose Calcium Assessment & Plan - Assessment and Plan (Free Text) Assessment: ESRD Volume overload Uncontrolled HTN CAD IDDM Plan: Pt is scheduled for extra dialysis today BP remains high. Minoxidil is added by Cardiology Will change out patient dialysis schedule to 4xwk
--- NOTE | 2016-12-19 18:00 | CP.PCM.PN ---
Subjective - Date & Time of Evaluation Date of Evaluation: 12/19/16 Time of Evaluation: 17:57 - Subjective Subjective: sob had an episode of hypiglyceamia vometed today Objective - Vital Signs/Intake and Output Vital Signs (last 24 hours): Temp Pulse Resp BP Pulse Ox 98.7 F 71 15 241/72 H 100 12/19/16 12:00 12/19/16 14:00 12/19/16 14:00 12/19/16 17:04 12/19/16 14:00 Intake and Output: 12/19/16 12/19/16 06:59 18:59 Intake Total 200 500 Balance 200 500 - Medications Medications: Current Medications Amlodipine Besylate (Norvasc) 10 mg PO DAILY [facility] Last Admin: 12/19/16 09:54 Dose: Not Given Aspirin (Aspirin Chewable) 81 mg PO DAILY [facility] Last Admin: 12/19/16 09:53 Dose: 81 mg Calcitriol (Rocaltrol) 0.25 mcg PO DAILY [facility] Last Admin: 12/19/16 09:54 Dose: 0.25 mcg Carvedilol (Coreg) 25 mg PO BID [facility] Last Admin: 12/19/16 17:04 Dose: 25 mg Clopidogrel Bisulfate (Plavix) 75 mg PO DAILY [facility] Last Admin: 12/19/16 09:53 Dose: 75 mg Epoetin Tom (Procrit) 6,000 unit IV TTS [facility] Hydralazine HCl (Apresoline) 100 mg PO Q8 [facility] Last Admin: 12/19/16 13:45 Dose: 100 mg Hydromorphone HCl (Dilaudid) 1 mg IVP Q6H PRN PRN Reason: Pain, moderate (4-7) Last Admin: 12/19/16 17:08 Dose: 1 mg Insulin Human Regular (Novolin R) 0 unit SC ACHS [facility] PRN Reason: Protocol Last Admin: 12/19/16 17:04 Dose: 6 unit Minoxidil (Minoxidil) 2.5 mg PO DAILY [facility] Pantoprazole Sodium (Protonix Ec Tab) 40 mg PO DAILY [facility] Last Admin: 12/19/16 09:53 Dose: 40 mg - Labs Labs: 12/19/16 06:43 12/19/16 06:43 PT 14.7 SECONDS (9.7-12.2) H 04/18/17 11:56 INR 1.3 12/18/16 11:56 APTT 33 SECONDS (21-34) 12/18/16 11:56 - Constitutional Appears: Non-toxic, In Acute Distress - Head Exam Head Exam: NORMAL INSPECTION - ENT Exam ENT Exam: Mucous Membranes Dry - Neck Exam Neck Exam: Full ROM - Respiratory Exam Respiratory Exam: Decreased Breath Sounds, Rales - Cardiovascular Exam Cardiovascular Exam: REGULAR RHYTHM - GI/Abdominal Exam GI & Abdominal Exam: Normal Bowel Sounds - Rectal Exam Rectal Exam: NORMAL INSPECTION - Extremities Exam Additional comments: s/p bilateral amputation - Neurological Exam Neurological Exam: Alert, Oriented x3 - Psychiatric Exam Psychiatric exam: Depressed - Skin Skin Exam: Dry Assessment and Plan - Assessment and Plan (Free Text) Assessment: ac rec chf cad esrf copd dmid Plan: as per orders
[2016-12-20] MEDS: HYDROmorphone 1 mg/ml ISec IVP PRN ×3 (05:39→17:51)
[2016-12-20] MEDS: (Novolin R) Insulin Human Regular 100 units/ml vial SC SCH ×4 (08:40→21:21)
[2016-12-20] MEDS: Pantoprazole 40 mg EC Tab PO SCH (09:54)
[2016-12-20] MEDS ORDERED: Dextrose 50% SYRINGE Inj (50 ml) IV STA (12:04)
[2016-12-20] MEDS ORDERED: Dextrose 50% SYRINGE Inj (50 ml) ONE (12:04)
--- NOTE | 2016-12-20 12:08 | CP.PCM.PN ---
Subjective - Date & Time of Evaluation Date of Evaluation: 12/20/16 Time of Evaluation: 11:00 - Subjective Subjective: Blood sugar was 33 . Was given 1 amp of D50 Alert sitting up & talking Objective - Vital Signs/Intake and Output Vital Signs (last 24 hours): Temp Pulse Resp BP Pulse Ox 97.8 F 75 18 202/70 H 100 12/20/16 08:45 12/20/16 08:45 12/20/16 08:45 12/20/16 09:55 12/20/16 08:45 - Medications Medications: Current Medications Amlodipine Besylate (Norvasc) 10 mg PO DAILY [facility] Last Admin: 12/20/16 09:55 Dose: 10 mg Aspirin (Aspirin Chewable) 81 mg PO DAILY [facility] Last Admin: 12/20/16 09:54 Dose: 81 mg Calcitriol (Rocaltrol) 0.25 mcg PO DAILY [facility] Last Admin: 12/20/16 09:54 Dose: 0.25 mcg Carvedilol (Coreg) 25 mg PO BID [facility] Last Admin: 12/20/16 09:55 Dose: 25 mg Clopidogrel Bisulfate (Plavix) 75 mg PO DAILY [facility] Last Admin: 12/20/16 09:54 Dose: 75 mg Dextrose (Dextrose 50% Inj) 50 ml IV STAT STA Stop: 12/20/16 12:05 Epoetin Tom (Procrit) 6,000 unit IV TTS [facility] Hydralazine HCl (Apresoline) 100 mg PO Q8 [facility] Last Admin: 12/20/16 05:41 Dose: 100 mg Hydromorphone HCl (Dilaudid) 1 mg IVP Q6H PRN PRN Reason: Pain, moderate (4-7) Last Admin: 12/20/16 11:30 Dose: 1 mg Insulin Human Regular (Novolin R) 0 unit SC ACHS [facility] PRN Reason: Protocol Last Admin: 12/20/16 08:40 Dose: 8 unit Minoxidil (Minoxidil) 2.5 mg PO DAILY [facility] Last Admin: 12/20/16 09:54 Dose: 2.5 mg Pantoprazole Sodium (Protonix Ec Tab) 40 mg PO DAILY [facility] Last Admin: 12/20/16 09:54 Dose: 40 mg - Labs Labs: 12/19/16 06:43 12/19/16 06:43 PT 14.7 SECONDS (9.7-12.2) H 12/18/16 11:56 INR 1.3 12/18/16 11:56 APTT 33 SECONDS (21-34) 12/18/16 11:56 - Respiratory Exam Additional comments: Lungs clear - Cardiovascular Exam Cardiovascular Exam: REGULAR RHYTHM - GI/Abdominal Exam GI & Abdominal Exam: Soft - Extremities Exam Additional comments: B/L BKA Assessment and Plan - Assessment and Plan (Free Text) Assessment: ESRD Volume overload Uncontrolled HTN. BP remains high IDDM CAD Plan: Pas given extra dialysis yesterday & for scheduled dialysis today Monitor BP.
[2016-12-20 13:28] LABS: HEMATOCRIT 27.8 % (35.0-51.0); MEAN CELL VOLUME 91.4 fL (80.0-94.0); MEAN CORPUSCULAR HGB CONC 31.7 g/dL (33.0-37.0); MEAN PLATELET VOLUME 8.3 fL (7.2-11.7); RED CELL DISTRIBUTION WIDTH 21.2 % (11.5-14.5); WHITE BLOOD COUNT 10.3 K/uL (4.8-10.8)
--- NOTE | 2016-12-20 17:47 | CP.PCM.PN ---
Subjective - Date & Time of Evaluation Date of Evaluation: 12/13/16 Time of Evaluation: 17:44 - Subjective Subjective: sob vomited bs 30 [id number] Objective - Vital Signs/Intake and Output Vital Signs (last 24 hours): Temp Pulse Resp BP Pulse Ox 98.1 F 69 18 174/57 H 100 12/20/16 16:20 12/20/16 16:20 12/20/16 16:00 12/20/16 17:30 12/20/16 16:20 Intake and Output: 12/20/16 12/20/16 06:59 18:59 Intake Total 0 Balance 0 - Medications Medications: Current Medications Amlodipine Besylate (Norvasc) 10 mg PO DAILY [facility] Last Admin: 12/20/16 09:55 Dose: 10 mg Aspirin (Aspirin Chewable) 81 mg PO DAILY [facility] Last Admin: 12/20/16 09:54 Dose: 81 mg Calcitriol (Rocaltrol) 0.25 mcg PO DAILY [facility] Last Admin: 12/20/16 09:54 Dose: 0.25 mcg Carvedilol (Coreg) 25 mg PO BID [facility] Last Admin: 12/20/16 17:30 Dose: 25 mg Clopidogrel Bisulfate (Plavix) 75 mg PO DAILY [facility] Last Admin: 12/20/16 09:54 Dose: 75 mg Epoetin Tom (Procrit) 6,000 unit IV TTS [facility] Hydralazine HCl (Apresoline) 100 mg PO Q8 [facility] Last Admin: 12/20/16 16:19 Dose: Not Given Hydromorphone HCl (Dilaudid) 1 mg IVP Q6H PRN PRN Reason: Pain, moderate (4-7) Last Admin: 12/20/16 11:30 Dose: 1 mg Insulin Human Regular (Novolin R) 0 unit SC ACHS [facility] PRN Reason: Protocol Last Admin: 12/20/16 17:31 Dose: 1 unit Minoxidil (Minoxidil) 2.5 mg PO DAILY [facility] Last Admin: 12/20/16 09:54 Dose: 2.5 mg Pantoprazole Sodium (Protonix Ec Tab) 40 mg PO DAILY [facility] Last Admin: 12/20/16 09:54 Dose: 40 mg - Labs Labs: 12/20/16 13:16 12/19/16 06:43 PT 14.7 SECONDS (9.7-12.2) H 12/18/16 11:56 INR 1.3 12/18/16 11:56 APTT 33 SECONDS (21-34) 12/18/16 11:56 - Constitutional Appears: In Acute Distress - Head Exam Head Exam: NORMAL INSPECTION - ENT Exam ENT Exam: Normal Exam - Respiratory Exam Respiratory Exam: Decreased Breath Sounds - Cardiovascular Exam Cardiovascular Exam: REGULAR RHYTHM - GI/Abdominal Exam GI & Abdominal Exam: Normal Bowel Sounds - Rectal Exam Rectal Exam: NORMAL INSPECTION - Extremities Exam Additional comments: s/p bilateral amputation - Back Exam Back Exam: CVA tenderness (L) - Psychiatric Exam Psychiatric exam: Depressed - Skin Skin Exam: Normal Color, Pallor Assessment and Plan - Assessment and Plan (Free Text) Assessment: dmid hypoglyceamia esrf sob copd cad chf Plan: as per orders
[2016-12-20] MEDS: Epoetin Alfa Dialysis 3000 UNIT/ML Inj IV SCH (17:48)
[2016-12-21] MEDS: HYDROmorphone 1 mg/ml ISec IVP PRN ×4 (06:04→18:26)
[2016-12-21] MEDS: (Novolin R) Insulin Human Regular 100 units/ml vial SC SCH ×4 (08:31→21:37)
--- NOTE | 2016-12-21 10:27 | CP.PCM.PN ---
Subjective - Date & Time of Evaluation Date of Evaluation: 12/21/16 Time of Evaluation: 10:24 - Subjective Subjective: c/o of palpitation less sob Objective - Vital Signs/Intake and Output Vital Signs (last 24 hours): Temp Pulse Resp BP Pulse Ox 98.5 F 82 13 158/62 H 100 12/21/16 04:00 12/21/16 04:00 12/21/16 04:00 12/21/16 04:00 12/20/16 20:00 - Medications Medications: Current Medications Amlodipine Besylate (Norvasc) 10 mg PO DAILY [facility] Last Admin: 12/20/16 09:55 Dose: 10 mg Aspirin (Aspirin Chewable) 81 mg PO DAILY [facility] Last Admin: 12/20/16 09:54 Dose: 81 mg Calcitriol (Rocaltrol) 0.25 mcg PO DAILY [facility] Last Admin: 12/20/16 09:54 Dose: 0.25 mcg Carvedilol (Coreg) 25 mg PO BID [facility] Last Admin: 12/20/16 17:30 Dose: 25 mg Clopidogrel Bisulfate (Plavix) 75 mg PO DAILY [facility] Last Admin: 12/20/16 09:54 Dose: 75 mg Epoetin Tom (Procrit) 6,000 unit IV TTS [facility] Last Admin: 12/20/16 17:48 Dose: 6,000 unit Hydralazine HCl (Apresoline) 100 mg PO Q8 [facility] Last Admin: 12/21/16 06:04 Dose: 100 mg Hydromorphone HCl (Dilaudid) 1 mg IVP Q6H PRN PRN Reason: Pain, moderate (4-7) Last Admin: 12/21/16 06:04 Dose: 1 mg Insulin Human Regular (Novolin R) 0 unit SC ACHS [facility] PRN Reason: Protocol Last Admin: 12/21/16 08:31 Dose: 4 unit Minoxidil (Minoxidil) 2.5 mg PO DAILY [facility] Last Admin: 12/20/16 09:54 Dose: 2.5 mg Pantoprazole Sodium (Protonix Ec Tab) 40 mg PO DAILY [facility] Last Admin: 12/20/16 09:54 Dose: 40 mg - Labs Labs: 12/20/16 13:16 12/19/16 06:43 PT 14.7 SECONDS (9.7-12.2) H 12/18/16 11:56 INR 1.3 12/18/16 11:56 APTT 33 SECONDS (21-34) 12/18/16 11:56 - Constitutional Appears: Non-toxic - Head Exam Head Exam: ATRAUMATIC - ENT Exam ENT Exam: Mucous Membranes Moist - Neck Exam Neck Exam: Normal Inspection - Respiratory Exam Respiratory Exam: Decreased Breath Sounds, Clear to Ausculation Bilateral - Cardiovascular Exam Additional comments: pvcs - GI/Abdominal Exam GI & Abdominal Exam: Normal Bowel Sounds - Rectal Exam Rectal Exam: NORMAL INSPECTION - Back Exam Back Exam: CVA tenderness (L) - Neurological Exam Neurological Exam: Alert, Oriented x3 - Skin Skin Exam: Pallor Assessment and Plan - Assessment and Plan (Free Text) Assessment: palpitation pvcs cad chf esrf dmid still symptomatic cont curent treatment
[2016-12-21] MEDS: Pantoprazole 40 mg EC Tab PO SCH (10:30)
--- NOTE | 2016-12-21 14:19 | CP.PCM.PN ---
Subjective - Date & Time of Evaluation Date of Evaluation: 12/21/16 Time of Evaluation: 14:15 - Subjective Subjective: confortable in bed no SOB no new event reported Objective - Vital Signs/Intake and Output Vital Signs (last 24 hours): Temp Pulse Resp BP Pulse Ox 98.2 F 82 13 112/56 L 100 12/21/16 08:00 12/21/16 04:00 12/21/16 04:00 12/21/16 10:30 12/20/16 20:00 Intake and Output: 12/21/16 12/21/16 06:59 18:59 Intake Total 360 Balance 360 - Medications Medications: Current Medications Amlodipine Besylate (Norvasc) 10 mg PO DAILY [facility] Last Admin: 12/21/16 10:30 Dose: 10 mg Aspirin (Aspirin Chewable) 81 mg PO DAILY [facility] Last Admin: 12/21/16 10:30 Dose: 81 mg Calcitriol (Rocaltrol) 0.25 mcg PO DAILY [facility] Last Admin: 12/21/16 10:30 Dose: 0.25 mcg Carvedilol (Coreg) 25 mg PO BID [facility] Last Admin: 12/21/16 10:30 Dose: 25 mg Clopidogrel Bisulfate (Plavix) 75 mg PO DAILY [facility] Last Admin: 12/21/16 10:30 Dose: 75 mg Epoetin Tom (Procrit) 6,000 unit IV TTS [facility] Last Admin: 12/20/16 17:48 Dose: 6,000 unit Hydralazine HCl (Apresoline) 100 mg PO Q8 [facility] Last Admin: 12/21/16 06:04 Dose: 100 mg Hydromorphone HCl (Dilaudid) 1 mg IVP Q6H PRN PRN Reason: Pain, moderate (4-7) Last Admin: 12/21/16 12:13 Dose: 1 mg Insulin Human Regular (Novolin R) 0 unit SC ACHS [facility] PRN Reason: Protocol Last Admin: 12/21/16 12:17 Dose: Not Given Minoxidil (Minoxidil) 2.5 mg PO DAILY [facility] Last Admin: 12/21/16 10:30 Dose: 2.5 mg Pantoprazole Sodium (Protonix Ec Tab) 40 mg PO DAILY [facility] Last Admin: 12/21/16 10:30 Dose: 40 mg - Labs Labs: 12/20/16 13:16 12/19/16 06:43 PT 14.7 SECONDS (9.7-12.2) H 12/18/16 11:56 INR 1.3 12/18/16 11:56 APTT 33 SECONDS (21-34) 12/18/16 11:56 - Constitutional Appears: No Acute Distress - ENT Exam ENT Exam: Mucous Membranes Moist - Respiratory Exam Respiratory Exam: NORMAL BREATHING PATTERN. absent: Chest Wall Tenderness, Rhonchi - Cardiovascular Exam Cardiovascular Exam: absent: Rubs - GI/Abdominal Exam GI & Abdominal Exam: Soft, Normal Bowel Sounds - Extremities Exam Extremities Exam: absent: Calf Tenderness - Back Exam Back Exam: absent: CVA tenderness (L), CVA tenderness (R) - Neurological Exam Neurological Exam: Awake Assessment and Plan (1) End stage renal disease on dialysis Assessment & Plan: ESRD for HD tomorrow chf getting better vital signs stable review meds ,same Status: Acute
--- NOTE | 2016-12-21 21:16 | CP.PCM.CON ---
History of Present Illness - History of Present Illness History of Present Illness: uncontrolled IDDM & hypoglycemia Past Patient History - Infectious Disease Hx of Infectious Diseases: MRSA - Tetanus Immunizations Tetanus Immunization: >10 years Ago - Past Medical History & Family History Past Medical History?: Yes - Past Social History Smoking Status: Never Smoked - CARDIAC Hx Atrial Fibrillation: Yes Hx Cardia Arrhythmia: Yes Hx Congestive Heart Failure: Yes Hx Hypercholesterolemia: Yes Hx Hypertension: Yes - PULMONARY Hx Asthma: Yes Hx Bronchitis: Yes Hx Chronic Obstructive Pulmonary Disease (COPD): Yes - NEUROLOGICAL Hx Alzheimer's Disease: Yes Hx Seizures: Yes - HEENT Hx HEENT Problems: Yes Hx Blind: Yes (legally blind) Hx Cataracts: Yes - RENAL Hx Chronic Kidney Disease: Yes Type of Dialysis Access: right subclavian perma cath Date of Last Dialysis Treatment: 12/13/16 Hx Kidney Stones: No - ENDOCRINE/METABOLIC Hx Diabetes Mellitus Type 1: Yes Hx Hyperthyroidism: Yes Hx Hypothyroidism: Yes - HEMATOLOGICAL/ONCOLOGICAL Hx Anemia: Yes - INTEGUMENTARY Hx Dermatological Problems: No - MUSCULOSKELETAL/RHEUMATOLOGICAL Hx Arthritis: Yes Hx Falls: No - GASTROINTESTINAL Hx Gall Bladder Disease: Yes - GENITOURINARY/GYNECOLOGICAL Hx Sexually Transmitted Disorders: No - PSYCHIATRIC Hx Anxiety: Yes Hx Depression: Yes Hx Substance Use: No - SURGICAL HISTORY Hx Cholecystectomy: Yes (2011) 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/2009) Hx Coronary Stent: Yes (X3) - ANESTHESIA Hx Anesthesia: Yes Hx Anesthesia Reactions: No Hx Malignant Hyperthermia: No Meds Allergies/Adverse Reactions: Allergies Allergy/AdvReac Type Severity Reaction Status Date / Time acetaminophen [From Percocet] Allergy RASH Verified 12/18/16 10:59 atenolol Allergy RASH Verified 12/18/16 10:59 digoxin Allergy RASH Verified 12/18/16 10:59 milk Allergy ITCHING Verified 12/18/16 10:59 morphine Allergy ITCHING Verified 12/18/16 10:59 oxycodone HCl [From Percocet] Allergy RASH Verified 12/18/16 10:59 - Medications Medications: Current Medications Amlodipine Besylate (Norvasc) 10 mg PO DAILY [facility] Last Admin: 12/21/16 10:30 Dose: 10 mg Aspirin (Aspirin Chewable) 81 mg PO DAILY [facility] Last Admin: 12/21/16 10:30 Dose: 81 mg Calcitriol (Rocaltrol) 0.25 mcg PO DAILY [facility] Last Admin: 12/21/16 10:30 Dose: 0.25 mcg Carvedilol (Coreg) 25 mg PO BID [facility] Last Admin: 12/21/16 18:26 Dose: 25 mg Clopidogrel Bisulfate (Plavix) 75 mg PO DAILY [facility] Last Admin: 12/21/16 10:30 Dose: 75 mg Epoetin Tom (Procrit) 6,000 unit IV TTS [facility] Last Admin: 12/20/16 17:48 Dose: 6,000 unit Hydralazine HCl (Apresoline) 100 mg PO Q8 [facility] Last Admin: 12/21/16 16:32 Dose: 100 mg Hydromorphone HCl (Dilaudid) 1 mg IVP Q6H PRN PRN Reason: Pain, moderate (4-7) Last Admin: 12/21/16 18:26 Dose: 1 mg Insulin Human Regular (Novolin R) 0 unit SC ACHS [facility] PRN Reason: Protocol Last Admin: 12/21/16 16:31 Dose: 4 unit Minoxidil (Minoxidil) 2.5 mg PO DAILY [facility] Last Admin: 12/21/16 10:30 Dose: 2.5 mg Pantoprazole Sodium (Protonix Ec Tab) 40 mg PO DAILY [facility] Last Admin: 12/21/16 10:30 Dose: 40 mg Results - Vital Signs Recent Vital Signs: Last Vital Signs Temp 98.1 F 12/21/16 20:00 Pulse 73 12/21/16 20:00 Resp 15 12/21/16 20:00 BP 129/51 L 12/21/16 20:00 Pulse Ox 97 12/21/16 20:00 - Labs Result Diagrams: 12/20/16 13:16 12/19/16 06:43 Labs: Laboratory Results - last 24 hr 12/20/16 12/21/16 12/21/16 21:19 08:15 11:36 POC Glucose (mg/dL) 144 H 309 H 109 12/21/16 16:25 POC Glucose (mg/dL) 324 H Assessment & Plan (1) Hypoglycemia due to insulin Assessment and Plan: Endocrine consult reason for consult: hypoglycemia /uncontrolled diabetes Mr. Saha pt. is 36 y/o admitted to ICU for chest discomfort /CHF , glucose >400 pt. known to endocrine with uncontrolled IDDM /brittle ,complicated with ESRD on HD , retinopathy /legally blind , CAD s/p CABG , PVD s/p bilateral BKA , neuropathy , gastroparesis . started on medium dose coverage , yesterday has an episode of glucose of 39 after episode of vomiting , s/p D5 , endocrine contacted changed coverage to low dose coverage also with hypothyroidism used to be synthroid 25-50 mcg po qd blood glucose log : [phone] NO hypoglycemia Allergy multiple as per record review Past medical history : as above Past surgical history : as above Psychiatry history : (+) psychiatry disorder Social history : denies smoking , ETOH use , illicit drug use Family history : mother & sister with diabetes ROS: Constitutional: denies fever ,tiredness/weakness .HEENT: denies earache, change in voice .Respiratory: denies cough, sob . CVS :no chest pain, no palpitations . Abdomen : no abdominal pain, s/p nausea /vomiting , no change bowel movement . REGISTERED NURSE CARDIAC : denies headache , dizziness. Extremities : no edema , no tremors .Skin: no itching, no rash Physical exam Well developed AAO x3 , ,NAD VSS HEENT: norm cephalic, atraumatic , no lid lag , no exophthalmos , pale NECK: supple, no palpable lymphadenopathy THYROID: no palpable thyromegaly , not tender CHEST: fair air entry, bilateral, CVS: S1,S2 ABDOMEN: bowel sound present, benign, obese, no wide purple striae , no bruises EXTREMITIES: no edema, clubbing or cyanosis, no palpable hand tremors , bilateral BKA Skin : acanthosis nigricans lab: reviewed Assessment sever hypoglycemia uncontrolled IDDM ESRD on HD PVD s/p b/l BKA diabetes retinopathy /legally blind hypothyroidism chest pain /CHF plan continue Novoloin R low dose coverage, tid wc & hs obtain TSH , free T4 , T4& T3 will monitor Status: Acute (2) IDDM (insulin dependent diabetes mellitus) Status: Acute (3) Hypothyroid Status: Acute (4) End stage renal disease on dialysis Status: Acute Priority: Medium (5) Diabetes mellitus with retinopathy Status: Acute (6) Chest discomfort Status: Acute (7) S/P amputation Status: Acute
[2016-12-22] MEDS: HYDROmorphone 1 mg/ml ISec IVP PRN ×4 (00:34→22:22)
[2016-12-22 08:31] LABS: T4 7.61 ug/dL (5.5-11.0)
[2016-12-22 08:44] LABS: THYROID STIMULATING HORMONE 1.8 mIU/L (0.46-4.68)
[2016-12-22] MEDS: (Novolin R) Insulin Human Regular 100 units/ml vial SC SCH ×4 (09:18→21:34)
[2016-12-22] MEDS: Epoetin Alfa Dialysis 3000 UNIT/ML Inj IV SCH (11:49)
[2016-12-22] MEDS: Pantoprazole 40 mg EC Tab PO SCH (13:27)
--- NOTE | 2016-12-22 15:00 | CP.PCM.PN ---
Subjective - Date & Time of Evaluation Date of Evaluation: 12/22/16 Time of Evaluation: 03:00 - Subjective Subjective: Appears comfortable in bed Objective - Vital Signs/Intake and Output Vital Signs (last 24 hours): Temp Pulse Resp BP Pulse Ox 98.0 F 84 20 151/82 H 100 12/22/16 13:28 12/22/16 13:28 12/22/16 13:28 12/22/16 13:28 12/22/16 13:28 Intake and Output: 12/22/16 12/22/16 06:59 18:59 Intake Total 360 Output Total 0 Balance 360 - Medications Medications: Current Medications Amlodipine Besylate (Norvasc) 10 mg PO DAILY [facility] Last Admin: 12/22/16 13:27 Dose: 10 mg Aspirin (Aspirin Chewable) 81 mg PO DAILY [facility] Last Admin: 12/22/16 13:27 Dose: 81 mg Calcitriol (Rocaltrol) 0.25 mcg PO DAILY [facility] Last Admin: 12/22/16 13:27 Dose: 0.25 mcg Carvedilol (Coreg) 25 mg PO BID [facility] Last Admin: 12/22/16 13:27 Dose: 25 mg Clopidogrel Bisulfate (Plavix) 75 mg PO DAILY [facility] Last Admin: 12/22/16 13:27 Dose: 75 mg Epoetin Tom (Procrit) 6,000 unit IV TTS [facility] Last Admin: 12/22/16 11:49 Dose: 6,000 unit Hydralazine HCl (Apresoline) 100 mg PO Q8 [facility] Last Admin: 12/22/16 13:27 Dose: 100 mg Hydromorphone HCl (Dilaudid) 1 mg IVP Q6H PRN PRN Reason: Pain, moderate (4-7) Last Admin: 12/22/16 13:26 Dose: 1 mg Insulin Human Regular (Novolin R) 0 unit SC ACHS [facility] PRN Reason: Protocol Last Admin: 12/22/16 13:33 Dose: 1 unit Minoxidil (Minoxidil) 2.5 mg PO DAILY [facility] Last Admin: 12/22/16 13:27 Dose: 2.5 mg Pantoprazole Sodium (Protonix Ec Tab) 40 mg PO DAILY [facility] Last Admin: 12/22/16 13:27 Dose: 40 mg - Labs Labs: 12/20/16 13:16 12/19/16 06:43 PT 14.7 SECONDS (9.7-12.2) H 12/18/16 11:56 INR 1.3 12/18/16 11:56 APTT 33 SECONDS (21-34) 12/18/16 11:56 - Respiratory Exam Additional comments: Lungs clear - Cardiovascular Exam Cardiovascular Exam: REGULAR RHYTHM - Extremities Exam Additional comments: B/l BKA Assessment and Plan - Assessment and Plan (Free Text) Assessment: ESRD on HD CHF/volume overload improving HTN Now controlled IDDM with complications Plan: Dialysis tolerated well today. Continue HD per schedule
--- NOTE | 2016-12-22 17:49 | CP.PCM.PN ---
Subjective - Date & Time of Evaluation Date of Evaluation: 12/22/16 Time of Evaluation: 17:47 - Subjective Subjective: less sob less chest discofort back pain bs [id number] to 93 Objective - Vital Signs/Intake and Output Vital Signs (last 24 hours): Temp Pulse Resp BP Pulse Ox 97.4 F L 63 20 108/62 100 12/22/16 16:00 12/22/16 16:00 12/22/16 16:00 12/22/16 16:00 12/22/16 16:00 Intake and Output: 12/22/16 12/22/16 06:59 18:59 Intake Total 360 Output Total 0 Balance 360 - Medications Medications: Current Medications Amlodipine Besylate (Norvasc) 10 mg PO DAILY [facility] Last Admin: 12/22/16 13:27 Dose: 10 mg Aspirin (Aspirin Chewable) 81 mg PO DAILY [facility] Last Admin: 12/22/16 13:27 Dose: 81 mg Calcitriol (Rocaltrol) 0.25 mcg PO DAILY [facility] Last Admin: 12/22/16 13:27 Dose: 0.25 mcg Carvedilol (Coreg) 25 mg PO BID [facility] Last Admin: 12/22/16 13:27 Dose: 25 mg Clopidogrel Bisulfate (Plavix) 75 mg PO DAILY [facility] Last Admin: 12/22/16 13:27 Dose: 75 mg Epoetin Tom (Procrit) 6,000 unit IV TTS [facility] Last Admin: 12/22/16 11:49 Dose: 6,000 unit Hydralazine HCl (Apresoline) 100 mg PO Q8 [facility] Last Admin: 12/22/16 13:27 Dose: 100 mg Hydromorphone HCl (Dilaudid) 1 mg IVP Q6H PRN PRN Reason: Pain, moderate (4-7) Last Admin: 12/22/16 13:26 Dose: 1 mg Insulin Human Regular (Novolin R) 0 unit SC ACHS [facility] PRN Reason: Protocol Last Admin: 12/22/16 13:33 Dose: 1 unit Minoxidil (Minoxidil) 2.5 mg PO DAILY [facility] Last Admin: 12/22/16 13:27 Dose: 2.5 mg Pantoprazole Sodium (Protonix Ec Tab) 40 mg PO DAILY [facility] Last Admin: 12/22/16 13:27 Dose: 40 mg - Labs Labs: 12/20/16 13:16 12/19/16 06:43 PT 14.7 SECONDS (9.7-12.2) H 12/18/16 11:56 INR 1.3 12/18/16 11:56 APTT 33 SECONDS (21-34) 12/18/16 11:56 - Constitutional Appears: Non-toxic - Head Exam Head Exam: NORMAL INSPECTION - Eye Exam Eye Exam: Conjunctival injection Additional comments: legaly blind - ENT Exam ENT Exam: Mucous Membranes Moist - Neck Exam Neck Exam: Full ROM - Respiratory Exam Respiratory Exam: Decreased Breath Sounds - Cardiovascular Exam Cardiovascular Exam: Diastolic murmur, +S4, Murmur - GI/Abdominal Exam GI & Abdominal Exam: Normal Bowel Sounds - Rectal Exam Rectal Exam: NORMAL INSPECTION - Extremities Exam Additional comments: s/p javier amputation - Neurological Exam Neurological Exam: Oriented x3 - Psychiatric Exam Psychiatric exam: Normal Affect - Skin Skin Exam: Pallor Assessment and Plan - Assessment and Plan (Free Text) Assessment: chf copd dmid uncontroled esrf Plan: cont same
--- NOTE | 2016-12-22 21:07 | CP.PCM.PN ---
Subjective - Date & Time of Evaluation Date of Evaluation: 12/22/16 Time of Evaluation: 21:04 - Subjective Subjective: hypoglycemia & uncontrolled IDDM Objective - Vital Signs/Intake and Output Vital Signs (last 24 hours): Temp Pulse Resp BP Pulse Ox 97.4 F L 81 18 129/55 L 100 12/22/16 16:00 12/22/16 19:53 12/22/16 19:53 12/22/16 19:53 12/22/16 16:00 - Medications Medications: Current Medications Amlodipine Besylate (Norvasc) 10 mg PO DAILY [facility] Last Admin: 12/22/16 13:27 Dose: 10 mg Aspirin (Aspirin Chewable) 81 mg PO DAILY [facility] Last Admin: 12/22/16 13:27 Dose: 81 mg Calcitriol (Rocaltrol) 0.25 mcg PO DAILY [facility] Last Admin: 12/22/16 13:27 Dose: 0.25 mcg Carvedilol (Coreg) 25 mg PO BID [facility] Last Admin: 12/22/16 18:03 Dose: Not Given Clopidogrel Bisulfate (Plavix) 75 mg PO DAILY [facility] Last Admin: 12/22/16 13:27 Dose: 75 mg Epoetin Tom (Procrit) 6,000 unit IV TTS [facility] Last Admin: 12/22/16 11:49 Dose: 6,000 unit Hydralazine HCl (Apresoline) 100 mg PO Q8 [facility] Last Admin: 12/22/16 13:27 Dose: 100 mg Insulin Glargine (Lantus) 7 unit SC HS [facility] Insulin Human Regular (Novolin R) 0 unit SC ACHS [facility] PRN Reason: Protocol Minoxidil (Minoxidil) 2.5 mg PO DAILY [facility] Last Admin: 12/22/16 13:27 Dose: 2.5 mg Pantoprazole Sodium (Protonix Ec Tab) 40 mg PO DAILY [facility] Last Admin: 12/22/16 13:27 Dose: 40 mg - Labs Labs: 12/20/16 13:16 12/19/16 06:43 PT 14.7 SECONDS (9.7-12.2) H 12/18/16 11:56 INR 1.3 12/18/16 11:56 APTT 33 SECONDS (21-34) 12/18/16 11:56 Assessment and Plan (1) Hypoglycemia due to insulin Assessment & Plan: Assessment and Plan: Endocrine consult reason for consult: hypoglycemia /uncontrolled diabetes Mr. Saha pt. is 36 y/o admitted to ICU for chest discomfort /CHF , glucose >400 pt. known to endocrine with uncontrolled IDDM /brittle ,complicated with ESRD on HD , retinopathy /legally blind , CAD s/p CABG , PVD s/p bilateral BKA , neuropathy , gastroparesis . started on medium dose coverage , yesterday has an episode of glucose of 39 after episode of vomiting , s/p D5 , endocrine contacted changed coverage to low dose coverage also with hypothyroidism used to be synthroid 25-50 mcg po qd blood glucose log : [phone] NO hypoglycemia Allergy multiple as per record review Past medical history : as above Past surgical history : as above Psychiatry history : (+) psychiatry disorder Social history : denies smoking , ETOH use , illicit drug use Family history : mother & sister with diabetes ROS: Constitutional: denies fever ,tiredness/weakness .HEENT: denies earache, change in voice .Respiratory: denies cough, sob . CVS :no chest pain, no palpitations . Abdomen : no abdominal pain, s/p nausea /vomiting , no change bowel movement . 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 Extremities : no edema , no tremors .Skin: no itching, no rash Physical exam Well developed AAO x3 , ,NAD VSS HEENT: norm cephalic, atraumatic , no lid lag , no exophthalmos , pale NECK: supple, no palpable lymphadenopathy THYROID: no palpable thyromegaly , not tender CHEST: fair air entry, bilateral, CVS: S1,S2 ABDOMEN: bowel sound present, benign, obese, no wide purple striae , no bruises EXTREMITIES: no edema, clubbing or cyanosis, no palpable hand tremors , bilateral BKA Skin : acanthosis nigricans lab: TSH 1.80 , T3 1.22 , T4 7.61, ft4 1.25 Assessment sever hypoglycemia , resolved uncontrolled IDDM ESRD on HD PVD s/p b/l BKA diabetes retinopathy /legally blind euthyroid sick /h/o hypothyroidism chest pain /CHF plan decrease Novoloin R coverage, to start above 200 1 units tid wc & hs start lantus 7 units @ hs will monitor Status: Acute (2) IDDM (insulin dependent diabetes mellitus) Status: Acute (3) End stage renal disease on dialysis Status: Acute (4) Diabetes mellitus with retinopathy Status: Acute (5) Chest discomfort Status: Acute (6) S/P amputation Status: Acute (7) Sick euthyroidism Status: Acute
[2016-12-22] MEDS ORDERED: (Lantus) Insulin Glargine, Recombinant SC SCH (22:00)
[2016-12-23 00:54] VITALS: RESP 20
[2016-12-23] MEDS: HYDROmorphone 1 mg/ml ISec IVP PRN ×3 (05:36→18:15)
[2016-12-23] MEDS: (Novolin R) Insulin Human Regular 100 units/ml vial SC SCH ×2 (08:14→21:16)
[2016-12-23] MEDS: Pantoprazole 40 mg EC Tab PO SCH (09:17)
--- NOTE | 2016-12-23 10:56 | CP.PCM.PN ---
Subjective - Date & Time of Evaluation Date of Evaluation: 12/23/16 Time of Evaluation: 10:53 - Subjective Subjective: feels juanaer bs sd Objective - Vital Signs/Intake and Output Vital Signs (last 24 hours): Temp Pulse Resp BP Pulse Ox 97.9 F 80 20 95/65 L 97 12/23/16 07:56 12/23/16 09:15 12/23/16 07:56 12/23/16 09:15 12/23/16 07:56 Intake and Output: 12/23/16 12/23/16 06:59 18:59 Intake Total 240 Balance 240 - Medications Medications: Current Medications Aspirin (Aspirin Chewable) 81 mg PO DAILY [facility] Last Admin: 12/23/16 09:16 Dose: 81 mg Calcitriol (Rocaltrol) 0.25 mcg PO DAILY [facility] Last Admin: 12/23/16 09:17 Dose: 0.25 mcg Carvedilol (Coreg) 25 mg PO BID [facility] Last Admin: 12/22/16 18:03 Dose: Not Given Clopidogrel Bisulfate (Plavix) 75 mg PO DAILY [facility] Last Admin: 12/23/16 09:17 Dose: 75 mg Epoetin Tom (Procrit) 6,000 unit IV TTS [facility] Last Admin: 12/22/16 11:49 Dose: 6,000 unit Hydralazine HCl (Apresoline) 100 mg PO Q8 [facility] Last Admin: 12/23/16 05:04 Dose: Not Given Hydromorphone HCl (Dilaudid) 1 mg IVP Q6H PRN PRN Reason: Pain, moderate (4-7) Last Admin: 12/23/16 05:36 Dose: 1 mg Insulin Aspart (Novolog Mix 70/30 (70/30 Units/Ml)) 20 units SC ACBL STA Stop: 12/23/16 10:52 Insulin Glargine (Lantus) 7 unit SC HS [facility] Last Admin: 12/22/16 22:04 Dose: 7 units Minoxidil (Minoxidil) 2.5 mg PO DAILY [facility] Last Admin: 12/22/16 13:27 Dose: 2.5 mg Pantoprazole Sodium (Protonix Ec Tab) 40 mg PO DAILY [facility] Last Admin: 12/23/16 09:17 Dose: 40 mg - Labs Labs: 12/20/16 13:16 12/19/16 06:43 PT 14.7 SECONDS (9.7-12.2) H 12/18/16 11:56 INR 1.3 12/18/16 11:56 APTT 33 SECONDS (21-34) 12/18/16 11:56 - Constitutional Appears: Non-toxic - Head Exam Head Exam: NORMAL INSPECTION - Eye Exam Additional comments: blind - ENT Exam ENT Exam: Mucous Membranes Moist - Neck Exam Neck Exam: Full ROM - Respiratory Exam Respiratory Exam: NORMAL BREATHING PATTERN - Cardiovascular Exam Cardiovascular Exam: REGULAR RHYTHM - Rectal Exam Rectal Exam: NORMAL INSPECTION - Back Exam Back Exam: CVA tenderness (L), NORMAL INSPECTION - Neurological Exam Neurological Exam: Alert, Oriented x3 - Psychiatric Exam Psychiatric exam: Normal Mood - Skin Skin Exam: Normal Color Assessment and Plan - Assessment and Plan (Free Text) Assessment: uncontroled DMID ESRF CAD CHF Plan: INCREASE INSULIN
[2016-12-23] MEDS ORDERED: (Novolog Mix 70/30) Insulin Aspart/Insulin Aspar 100 units/ml SC STA ×2 (11:38→11:40)
--- NOTE | 2016-12-23 14:51 | CP.PCM.PN ---
Subjective - Date & Time of Evaluation Date of Evaluation: 12/23/16 Time of Evaluation: 02:45 - Subjective Subjective: Comfortable . No SOB Objective - Vital Signs/Intake and Output Vital Signs (last 24 hours): Temp Pulse Resp BP Pulse Ox 97.9 F 80 20 95/65 L 97 12/23/16 07:56 12/23/16 09:15 12/23/16 07:56 12/23/16 09:15 12/23/16 07:56 Intake and Output: 12/23/16 12/23/16 06:59 18:59 Intake Total 240 Balance 240 - Medications Medications: Current Medications Aspirin (Aspirin Chewable) 81 mg PO DAILY [facility] Last Admin: 12/23/16 09:16 Dose: 81 mg Calcitriol (Rocaltrol) 0.25 mcg PO DAILY [facility] Last Admin: 12/23/16 09:17 Dose: 0.25 mcg Carvedilol (Coreg) 25 mg PO BID [facility] Last Admin: 12/23/16 10:00 Dose: Not Given Clopidogrel Bisulfate (Plavix) 75 mg PO DAILY [facility] Last Admin: 12/23/16 09:17 Dose: 75 mg Epoetin Tom (Procrit) 6,000 unit IV TTS [facility] Last Admin: 12/22/16 11:49 Dose: 6,000 unit Hydralazine HCl (Apresoline) 100 mg PO Q8 [facility] Last Admin: 12/23/16 14:11 Dose: Not Given Hydromorphone HCl (Dilaudid) 1 mg IVP Q6H PRN PRN Reason: Pain, moderate (4-7) Last Admin: 12/23/16 11:47 Dose: 1 mg Insulin Glargine (Lantus) 7 unit SC HS [facility] Last Admin: 12/22/16 22:04 Dose: 7 units Minoxidil (Minoxidil) 2.5 mg PO DAILY [facility] Last Admin: 12/23/16 10:00 Dose: Not Given Pantoprazole Sodium (Protonix Ec Tab) 40 mg PO DAILY [facility] Last Admin: 12/23/16 09:17 Dose: 40 mg - Labs Labs: 12/20/16 13:16 12/19/16 06:43 PT 14.7 SECONDS (9.7-12.2) H 12/18/16 11:56 INR 1.3 04/18/17 11:56 APTT 33 SECONDS (21-34) 12/18/16 11:56 - Respiratory Exam Respiratory Exam: NORMAL BREATHING PATTERN Additional comments: Lungs clear - Cardiovascular Exam Cardiovascular Exam: REGULAR RHYTHM - Extremities Exam Additional comments: B/L BKA Assessment and Plan - Assessment and Plan (Free Text) Assessment: ESRD CFHF/Volume overload CAD IDDM Plan: BP & volume controlled Start HD 4xwk as outpatient
[2016-12-23] MEDS ORDERED: (Novolog Mix 70/30) Insulin Aspart/Insulin Aspar 100 units/ml SC SCH (16:30)
--- NOTE | 2016-12-23 19:05 | CP.PCM.PN ---
Subjective - Date & Time of Evaluation Date of Evaluation: 12/23/16 Time of Evaluation: 19:03 - Subjective Subjective: hypoglycemia & uncontrolled IDDM Objective - Vital Signs/Intake and Output Vital Signs (last 24 hours): Temp Pulse Resp BP Pulse Ox 98.1 F 90 20 115/53 L 100 12/23/16 16:31 12/23/16 16:31 12/23/16 16:31 12/23/16 17:31 12/23/16 17:35 - Medications Medications: Current Medications Aspirin (Aspirin Chewable) 81 mg PO DAILY [facility] Last Admin: 12/23/16 09:16 Dose: 81 mg Calcitriol (Rocaltrol) 0.25 mcg PO DAILY [facility] Last Admin: 12/23/16 09:17 Dose: 0.25 mcg Carvedilol (Coreg) 25 mg PO BID [facility] Last Admin: 12/23/16 17:31 Dose: Not Given Clopidogrel Bisulfate (Plavix) 75 mg PO DAILY [facility] Last Admin: 12/23/16 09:17 Dose: 75 mg Epoetin Tom (Procrit) 6,000 unit IV TTS [facility] Last Admin: 12/22/16 11:49 Dose: 6,000 unit Hydralazine HCl (Apresoline) 100 mg PO Q8 [facility] Last Admin: 12/23/16 14:11 Dose: Not Given Hydromorphone HCl (Dilaudid) 1 mg IVP Q6H PRN PRN Reason: Pain, moderate (4-7) Last Admin: 12/23/16 18:15 Dose: 1 mg Insulin Glargine (Lantus) 7 unit SC BID [facility] Insulin Human Regular (Novolin R) 0 unit SC ACHS [facility] PRN Reason: Protocol Minoxidil (Minoxidil) 2.5 mg PO DAILY [facility] Last Admin: 12/23/16 10:00 Dose: Not Given Pantoprazole Sodium (Protonix Ec Tab) 40 mg PO DAILY [facility] Last Admin: 12/23/16 09:17 Dose: 40 mg - Labs Labs: 12/20/16 13:16 12/19/16 06:43 PT 14.7 SECONDS (9.7-12.2) H 12/18/16 11:56 INR 1.3 12/18/16 11:56 APTT 33 SECONDS (21-34) 12/18/16 11:56 Assessment and Plan (1) Hypoglycemia due to insulin Assessment & Plan: Endocrine consult f/u : hypoglycemia /uncontrolled diabetes Mr. Saha pt. is 36 y/o admitted to ICU for chest discomfort /CHF , glucose >400 pt. known to endocrine with uncontrolled IDDM /brittle ,complicated with ESRD on HD , retinopathy /legally blind , CAD s/p CABG , PVD s/p bilateral BKA , neuropathy , gastroparesis . started on medium dose coverage , yesterday has an episode of glucose of 39 after episode of vomiting , s/p D5 , endocrine contacted changed coverage to low dose coverage also with h/o hypothyroidism used to be synthroid 25-50 mcg po qd blood glucose log : 200-300 , NO hypoglycemia , started on Dilaudid for low back pain Allergy multiple as per record review Past medical history : as above Past surgical history : as above Psychiatry history : (+) psychiatry disorder Social history : denies smoking , ETOH use , illicit drug use Family history : mother & sister with diabetes ROS: Constitutional: denies fever ,tiredness/weakness .HEENT: denies earache, change in voice .Respiratory: denies cough, sob . CVS :no chest pain, no palpitations . Abdomen : no abdominal pain, s/p nausea /vomiting , no change bowel movement . 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 Extremities : no edema , no tremors .Skin: no itching, no rash Physical exam Well developed AAO x3 , ,NAD VSS HEENT: norm cephalic, atraumatic , no lid lag , no exophthalmos , pale NECK: supple, no palpable lymphadenopathy THYROID: no palpable thyromegaly , not tender CHEST: fair air entry, bilateral, CVS: S1,S2 ABDOMEN: bowel sound present, benign, obese, no wide purple striae , no bruises EXTREMITIES: no edema, clubbing or cyanosis, no palpable hand tremors , bilateral BKA Skin : acanthosis nigricans lab: TSH 1.80 , T3 1.22 , T4 7.61, ft4 1.25 Assessment sever hypoglycemia , resolved uncontrolled IDDM ESRD on HD PVD s/p b/l BKA diabetes retinopathy /legally blind euthyroid sick /h/o hypothyroidism chest pain /CHF plan resume Novoloin R coverage low dose coverage tid wc & hs , starting above 200 .. 1unit increase lantus 7 units bid @ 8am & 8pm will monitor Status: Acute (2) IDDM (insulin dependent diabetes mellitus) Status: Acute (3) End stage renal disease on dialysis Status: Acute (4) Diabetes mellitus with retinopathy Status: Acute (5) Chest discomfort Status: Acute (6) S/P amputation Status: Acute (7) Sick euthyroidism Status: Acute
[2016-12-23] MEDS ORDERED: (Novolin R) Insulin Human Regular 100 units/ml vial SC SCH (22:00)
[2016-12-24] MEDS: HYDROmorphone 1 mg/ml ISec IVP PRN ×3 (01:41→14:31)
[2016-12-24] MEDS: (Novolin R) Insulin Human Regular 100 units/ml vial SC SCH ×2 (08:11→12:30)
[2016-12-24] MEDS ORDERED: (Lantus) Insulin Glargine, Recombinant SC SCH (10:00)
[2016-12-24] MEDS: Pantoprazole 40 mg EC Tab PO SCH (10:20)
--- NOTE | 2016-12-24 11:02 | CP.PCM.PN ---
Subjective - Date & Time of Evaluation Date of Evaluation: 12/17/16 Time of Evaluation: 11:10 - Subjective Subjective: No c/o SOB Objective - Vital Signs/Intake and Output Vital Signs (last 24 hours): Temp Pulse Resp BP Pulse Ox 98 F 94 H 20 139/67 99 12/24/16 08:44 12/24/16 08:44 12/24/16 08:44 12/24/16 10:21 12/24/16 08:44 - Medications Medications: Current Medications Aspirin (Aspirin Chewable) 81 mg PO DAILY [facility] Last Admin: 12/24/16 10:20 Dose: 81 mg Calcitriol (Rocaltrol) 0.25 mcg PO DAILY [facility] Last Admin: 12/24/16 10:20 Dose: 0.25 mcg Carvedilol (Coreg) 25 mg PO BID [facility] Last Admin: 12/24/16 10:21 Dose: 25 mg Clopidogrel Bisulfate (Plavix) 75 mg PO DAILY [facility] Last Admin: 12/24/16 10:20 Dose: 75 mg Epoetin Tom (Procrit) 6,000 unit IV TTS [facility] Last Admin: 12/22/16 11:49 Dose: 6,000 unit Hydralazine HCl (Apresoline) 100 mg PO Q8 [facility] Last Admin: 12/24/16 05:20 Dose: 100 mg Hydromorphone HCl (Dilaudid) 1 mg IVP Q6H PRN PRN Reason: Pain, moderate (4-7) Last Admin: 12/24/16 08:00 Dose: 1 mg Insulin Glargine (Lantus) 7 unit SC Q12 [facility] Last Admin: 12/24/16 10:20 Dose: 7 unit Insulin Human Regular (Novolin R) 0 unit SC ACHS [facility] PRN Reason: Protocol Last Admin: 12/24/16 08:11 Dose: 1 unit Minoxidil (Minoxidil) 2.5 mg PO DAILY [facility] Last Admin: 12/24/16 10:20 Dose: 2.5 mg Pantoprazole Sodium (Protonix Ec Tab) 40 mg PO DAILY [facility] Last Admin: 12/24/16 10:20 Dose: 40 mg - Labs Labs: 12/20/16 13:16 12/19/16 06:43 PT 14.7 SECONDS (9.7-12.2) H 12/18/16 11:56 INR 1.3 12/18/16 11:56 APTT 33 SECONDS (21-34) 12/18/16 11:56 - Respiratory Exam Respiratory Exam: NORMAL BREATHING PATTERN Additional comments: Lungs clear - Cardiovascular Exam Cardiovascular Exam: REGULAR RHYTHM - Extremities Exam Additional comments: B/L BKA Assessment and Plan - Assessment and Plan (Free Text) Assessment: ESRD on HD CHF/volume overload corrected CAD,HTN,IDDM Plan: Hd schedule will be increased to 4xwk Continue to monitor BP & volume
--- NOTE | 2016-12-24 14:44 | CP.PCM.PN ---
Subjective - Date & Time of Evaluation Date of Evaluation: 12/24/16 Time of Evaluation: 14:20 - Subjective Subjective: Pt seen today states feels better , denies any sob, chest pain, N/V/D, tolerating diet No overnight event reported by RN Objective - Vital Signs/Intake and Output Vital Signs (last 24 hours): Temp Pulse Resp BP Pulse Ox 98 F 94 H 20 139/67 99 12/24/16 08:44 12/24/16 08:44 12/24/16 08:44 12/24/16 10:21 12/24/16 08:44 - Medications Medications: Current Medications Aspirin (Aspirin Chewable) 81 mg PO DAILY [facility] Last Admin: 12/24/16 10:20 Dose: 81 mg Calcitriol (Rocaltrol) 0.25 mcg PO DAILY [facility] Last Admin: 12/24/16 10:20 Dose: 0.25 mcg Carvedilol (Coreg) 25 mg PO BID [facility] Last Admin: 12/24/16 10:21 Dose: 25 mg Clopidogrel Bisulfate (Plavix) 75 mg PO DAILY [facility] Last Admin: 12/24/16 10:20 Dose: 75 mg Epoetin Tom (Procrit) 6,000 unit IV TTS [facility] Last Admin: 12/22/16 11:49 Dose: 6,000 unit Hydralazine HCl (Apresoline) 100 mg PO Q8 [facility] Last Admin: 12/24/16 14:31 Dose: 100 mg Hydromorphone HCl (Dilaudid) 1 mg IVP Q6H PRN PRN Reason: Pain, moderate (4-7) Last Admin: 12/24/16 14:31 Dose: 1 mg Insulin Glargine (Lantus) 7 unit SC Q12 [facility] Last Admin: 12/24/16 10:20 Dose: 7 unit Insulin Human Regular (Novolin R) 0 unit SC ACHS [facility] PRN Reason: Protocol Last Admin: 12/24/16 12:30 Dose: 1 unit Minoxidil (Minoxidil) 2.5 mg PO DAILY [facility] Last Admin: 12/24/16 10:20 Dose: 2.5 mg Pantoprazole Sodium (Protonix Ec Tab) 40 mg PO DAILY [facility] Last Admin: 12/24/16 10:20 Dose: 40 mg - Labs Labs: 12/20/16 13:16 12/19/16 06:43 PT 14.7 SECONDS (9.7-12.2) H 12/18/16 11:56 INR 1.3 12/18/16 11:56 APTT 33 SECONDS (21-34) 12/18/16 11:56 Assessment and Plan - Assessment and Plan (Free Text) Assessment: A/P 36 yr old admitted for chest pain, CHF, fluid overload, ESRD vss- stable bs - improved D/W Dr. Sorto, pt may need 4 days/week HD D/W Dr. Li , stable for discharge home today and f/u with HD as scheduled SW will contact HD center and arrange transportation and contact family
[2016-12-24 16:37] VITALS: BP 101/58; PULSE 75; TEMP 97.9; O2SAT 100
--- NOTE | 2016-12-24 16:44 | PCM.HF ---
Heart Failure Core Measure - Heart Failure Ejection Fraction: 40 % or Greater RAÚL Inhibitor Prescribed: No Contraindication/Reason for not providing: ESRD Beta-Andrew Prescribed: Carvedilol Angiotensin II Receptor Andrew Prescribed: No Contraindication/Reason for not providing: ESRD AnticoagulationTherapy for Atrial Fibrillation/Atrialflutter: Yes Aldosterone Antagonist Prescribed: No Contraindication/Reason for not providing: ESRD Hydralazine Nitrate Prescribed: Yes Implantable Cardioverter Defibrillator Therapy: No Contraindication/Reason for not providing: EF>45 Cardiac Resynchronization Therapy Prescribed: No Contraindication/Reason for not providing: EF>45 - Follow up Will be discharged to: Home Follow Up Date (must be within 7 days from discharge): 12/25/16 Follow Up Time: 09:00
--- NOTE | 2017-01-15 10:59 | DS ---
The patient came into the Emergency Room with chest pain, shortness of breath, and missed his dialysi s. He had a temperature of 97.8. His white count was high at 11.7. His hemoglobin was 8.8 and he h as end-stage renal failure. He has post-amputation. He was put in telemetry and monitored for cardi ac enzymes which were negative. He had dialysis by Dr. Galindo and he was feeling better with less sh ortness of breath. He was having the sugar uncontrolled and he was seen by Dr. Harry Wu and she wa s controlling the insulin orders. He was on medication, amlodipine, aspirin, calcitriol, Coreg, Plav ix, Procrit for the anemia and he was stable. He had been on dialysis and he was able to be discharg ed home on 12/24/16 to continue his medication, have followup by me in my office and his vitals were s table. His blood pressure initially was very high when he came in. The last blood pressure was 139/ 67. FINAL DIAGNOSES: Chest pain, nonspecific; status post coronary artery bypass graft, status post huang nary artery disease, diabetes mellitus, insulin dependent, uncontrolled and peripheral vascular disea se, status post bilateral amputation, congestive heart failure, end-stage renal failure on dialysis, anemia of chronic disease. Sybil Li MD cc: [phone] TT: 01/15/2017 10:58:48 [place]
== END 2016-12-24 16:00 | disposition home or self-care (01) | DRG 544 ==
LOC: C.ER 10:39 → C.9E 13:13 → C.9I 15:14 → C.5T 12-21 22:03
PROVIDERS: ADMIT Internal Medicine; ATTEND Internal Medicine
PROC: 5A1D00Z (ICD-10-PCS; principal; 2016-12-20)
DX: I13.2 Hypertensive heart and chronic kidney disease with heart failure and with stage 5 chronic kidney disease, or end stage renal disease (principal); I50.32 Chronic diastolic (congestive) heart failure; E87.2 Acidosis; N18.6 End stage renal disease; E10.22 Type 1 diabetes mellitus with diabetic chronic kidney disease; K31.84 Gastroparesis; E10.40 Type 1 diabetes mellitus with diabetic neuropathy, unspecified; E87.5 Hyperkalemia; E10.319 Type 1 diabetes mellitus with unspecified diabetic retinopathy without macular edema; E10.649 Type 1 diabetes mellitus with hypoglycemia without coma; E10.43 Type 1 diabetes mellitus with diabetic autonomic (poly)neuropathy; J44.9 Chronic obstructive pulmonary disease, unspecified; E10.51 Type 1 diabetes mellitus with diabetic peripheral angiopathy without gangrene; I25.10 Atherosclerotic heart disease of native coronary artery without angina pectoris; J45.909 Unspecified asthma, uncomplicated; I48.91 Unspecified atrial fibrillation; E78.00 Pure hypercholesterolemia, unspecified; E10.65 Type 1 diabetes mellitus with hyperglycemia; Z86.14 Personal history of Methicillin resistant Staphylococcus aureus infection; H54.8 Legal blindness, as defined in USA; Z89.512 Acquired absence of left leg below knee; Z89.511 Acquired absence of right leg below knee; Z99.2 Dependence on renal dialysis; Z79.4 Long term (current) use of insulin; Z90.49 Acquired absence of other specified parts of digestive tract; Z95.1 Presence of aortocoronary bypass graft; Z95.5 Presence of coronary angioplasty implant and graft

== ENCOUNTER 2017-01-15 17:25 | Inpatient (IN) | payer OTHER ==
[2017-01-15 17:27] VITALS: PULSE 66; BMI 20.7
--- NOTE | 2017-01-15 17:48 | C.PDOC ---
History Of Present Illness 36 y/o male who was sent to the ER from dialysis for high blood pressure. Patient states he also developed anterior chest wall pain during dialysis. He was given 2 clonidine but blood pressure elevated again. Patient states he finished dialysis treatment prior to arrival. Denies fever, chills, nausea, vomiting, or other associated symptoms. Time Seen by Provider: 01/15/17 17:30 Chief Complaint (Nursing): High Blood Pressure History Per: Patient History/Exam Limitations: no limitations Onset/Duration Of Symptoms: Hrs Current Symptoms Are (Timing): Still Present Reports Recently: Treated By A Physician Past Medical History Reviewed: Historical Data, Nursing Documentation, Vital Signs Vital Signs: Last Vital Signs Temp 98.1 F 01/16/17 09:00 Pulse 68 01/16/17 10:25 Resp 20 01/16/17 09:00 BP 178/72 H 01/16/17 10:25 Pulse Ox 97 01/16/17 09:00 - Medical History PMH: Alzheimer's Disease, Anemia, Anxiety, Arthritis, Asthma, Atrial Fibrillation, Bronchitis, CAD, Cardia Arrhythmia, CHF, COPD, CVA, Depression, Diabetes, Deep Vein Thrombosis, Gastrointestinal Ulcer, Gall Bladder Disease, HTN, Hypercholesterolemia, Hyperthyroidism, Hypothyroidism, End Stage Renal Disease (on dialysis Sat//Sat.), Chronic Kidney Disease, Seizures Surgical History: CABG (12/2009), Cholecystectomy (2011), Coronary Stent (X3) - [facility] Procedures ABDOMINAL WALL SINOGRAM (12/31/13) C.A.T. SCAN OF ABDOMEN (10/31/13) CENTRAL VENOUS CATHETER PLACEMENT WITH GUIDANCE (02/10/15) DILATE R ANT TIB ART W DRUG-ELUT INTRALUM, PERC (08/12/15) DILATION OF LEFT FEMORAL ARTERY, PERCUTANEOUS APPROACH (07/04/16) DILATION OF RIGHT FEMORAL ARTERY, PERCUTANEOUS APPROACH (08/12/15) DILATION OF RIGHT POPLITEAL ARTERY, PERCUTANEOUS APPROACH (08/12/15) DX ULTRASOUND-HEART (01/05/13) ENTERAL INFUSION OF CONCENTRATED NUT. SUBSTANCES (06/28/13) EXCIS DEBRIDE OF WOUND, INFECT, OR BURN (08/03/14) EXTIRPATION OF MATTER FROM L FEM ART, PERC APPROACH (07/04/16) EXTIRPATION OF MATTER FROM R FEM ART, PERC APPROACH (12/11/15) EXTIRPATION OF MATTER FROM R POPL ART, PERC APPROACH (08/12/15) FLUOROSCOPY OF L LOW EXTREM ART USING L OSM CONTRAST (08/12/15) FLUOROSCOPY OF R LOW EXTREM ART USING L OSM CONTRAST (08/12/15) FREE SKIN GRAFT NEC (08/03/14) HEAD SOFT TISS X-RAY NEC (04/15/13) HEMODIALYSIS (04/28/15) INCIS W REM OF FORIEGN BODY OR DEV FROM SKIN & SUBCUT TISSUE (08/08/13) INSERTION OF INFUSION DEV INTO R SUBCLAV VEIN, PERC APPROACH (01/19/16) INTRODUCE OF OTH THROMBOLYTIC INTO PERIPH ART, PERC APPROACH (08/12/15) LAPAROSCOPIC CHOLECYSTECTOMY (09/21/13) LOC EXC LES METATAR/TAR (06/01/14) PACKED CELL TRANSFUSION (06/01/14) PERCUTAN LIVER ASPIRAT (12/31/13) PERFORMANCE OF URINARY FILTRATION, MULTIPLE (07/19/16) PERFORMANCE OF URINARY FILTRATION, SINGLE (12/18/16) SKIN & SUBQ INCISION NEC (10/24/14) TETANUS TOXOID ADMINIST (06/13/14) VENOUS CATHETERIZATION FOR RENAL DIALYSIS (08/08/13) VENOUS CATHETERIZATION NEC (04/30/13) Family History: States: Unknown Family Hx - Social History Hx Tobacco Use: No Hx Alcohol Use: No Hx Substance Use: No - Immunization History Hx Tetanus Toxoid Vaccination: Yes Hx Influenza Vaccination: Yes Hx Pneumococcal Vaccination: Yes Review Of Systems Constitutional: Negative for: Fever, Chills Cardiovascular: Positive for: Chest Pain. Negative for: Palpitations Respiratory: Negative for: Shortness of Breath Gastrointestinal: Negative for: Nausea, Vomiting, Abdominal Pain Skin: Negative for: Rash Neurological: Negative for: Headache, Dizziness Physical Exam - Physical Exam Appears: Non-toxic, No Acute Distress Skin: Normal Color, Warm, Dry Head: Atraumatic, Normacephalic Chest: Symmetrical, Other (dialysis catheter left chest wall) Cardiovascular: Rhythm Regular Respiratory: Normal Breath Sounds, No Rales, No Rhonchi, No Wheezing Gastrointestinal/Abdominal: Soft, No Tenderness Back: Normal Inspection Extremity: Other (bilateral BKA lower exts ) Neurological/Psych: Other (no focal deficits) ED Course And Treatment - Laboratory Results Result Diagrams: 01/16/17 08:08 01/15/17 19:32 ECG Rhythm: Sinus Bradycardia Interpretation Of ECG: LVH with repolarization abnormality, no STEMI Rate From EC (bpm) O2 Sat by Pulse Oximetry: 99 (RA) Pulse Ox Interpretation: Normal Disposition - Disposition Disposition: HOSPITALIZED Disposition Time: 19:15 Condition: STABLE - Clinical Impression Clinical Impression: Chest pain - Scribe Statement The provider has reviewed the documentation as recorded by the Fabiola Nieto Provider Scribe Attestation: All medical record entries made by the Marlonibrigoberto were at my direction and personally dictated by me. I have reviewed the chart and agree that the record accurately reflects my personal performance of the history, physical exam, medical decision making, and the department course for this patient. I have also personally directed, reviewed, and agree with the discharge instructions and disposition.
--- NOTE | 2017-01-15 18:18 | RAD ---
HISTORY: cp COMPARISON: Chest x-ray performed 12/18/16 TECHNIQUE: Chest, one view. FINDINGS: Examination limited by habitus and hypoinflation. Right-sided dialysis catheter extends to the right atrium. LUNGS: Moderate pulmonary venous congestion. Please note that chest x-ray has limited sensitivity for the detection of pulmonary masses. PLEURA: Small [id number]-right pleural effusions. No definite pneumothorax . CARDIOVASCULAR: Median sternotomy wires. Cardiomegaly. OSSEOUS STRUCTURES: Degenerative changes. Osseous demineralization. VISUALIZED UPPER ABDOMEN: Unremarkable. OTHER FINDINGS: None. IMPRESSION: Right-sided dialysis catheter extends to the right atrium. CHF type pattern. Moderate pulmonary venous congestion. Small nrce-[id number]-tqgc-right pleural effusions. Cardiomegaly.
[2017-01-15 19:01] LABS: BASO # 0.1 K/uL (0.0-0.2); BASO % 0.7 % (0.0-2.0); EOS # 0.5 K/uL (0.0-0.7); EOS % 3.8 % (0.0-4.0); LYMPH # 1.5 K/uL (1.0-4.3); LYMPH % 12.1 % (20.0-40.0); MEAN CORPUSCULAR HEMOGLOBIN 27.9 pg (27.0-31.0); MEAN CORPUSCULAR HGB CONC 31.9 g/dL (33.0-37.0); MEAN PLATELET VOLUME 8.7 fL (7.2-11.7); MONO # 0.4 K/uL (0.0-0.8); MONO % 3.1 % (0.0-10.0); RED CELL DISTRIBUTION WIDTH 18.3 % (11.5-14.5); WHITE BLOOD COUNT 12.2 K/uL (4.8-10.8)
[2017-01-15 19:03] LABS: MEAN CELL VOLUME 87.3 fL (80.0-94.0)
[2017-01-15] MEDS ORDERED: HYDROmorphone 1 mg/ml ISec IVP STA (19:37)
[2017-01-15 19:44] LABS: POTASSIUM 4.2 mmol/L (3.6-5.2)
[2017-01-15 19:46] LABS: ALB/GLOB RATIO 1.2 (1.0-2.1); TOTAL PROTEIN 8.1 g/dL (6.3-8.3)
[2017-01-15 19:47] LABS: CALCIUM 8.4 mg/dl (8.6-10.4)
[2017-01-15 19:57] LABS: TROPONIN I 0.025 ng/mL (0.00-0.120)
[2017-01-15] MEDS: Albuterol-Ipratrop 3 mg / 0.5 (3 ml) UD INH SCH (21:45)
[2017-01-15] MEDS ORDERED: Albuterol-Ipratrop 3 mg / 0.5 (3 ml) UD ONE (21:49)
[2017-01-15] MEDS: (Lantus) Insulin Glargine, Recombinant SC SCH (22:58)
[2017-01-16] MEDS: Albuterol-Ipratrop 3 mg / 0.5 (3 ml) UD INH SCH ×4 (07:20→19:53)
[2017-01-16] MEDS: (Novolog) Insulin Aspart, Recombinant 100 u/ml 10 ml vial SC SCH ×6 (08:15→18:28)
[2017-01-16 08:17] LABS: HEMATOCRIT 27.8 % (35.0-51.0); MEAN CELL VOLUME 88.7 fL (80.0-94.0); MEAN CORPUSCULAR HEMOGLOBIN 28.3 pg (27.0-31.0); MEAN CORPUSCULAR HGB CONC 31.9 g/dL (33.0-37.0); MEAN PLATELET VOLUME 8.9 fL (7.2-11.7); RED CELL DISTRIBUTION WIDTH 17.9 % (11.5-14.5); WHITE BLOOD COUNT 7.5 K/uL (4.8-10.8)
[2017-01-16] MEDS: HYDROmorphone 1 mg/ml ISec IVP PRN ×3 (09:14→21:37)
--- NOTE | 2017-01-16 09:35 | CP.PCM.CON ---
History of Present Illness - History of Present Illness History of Present Illness: 36 y/o male who was sent to the ER from dialysis for high blood pressure. Patient states he also developed anterior chest wall pain during dialysis. He was given 2 clonidine but blood pressure elevated again. Patient states he finished dialysis treatment prior to arrival. Denies fever, chills, nausea, vomiting, or other associated symptoms. Currently he reports no CP or SOB, BP remains high. No fevers, chills, N/V/D. pmhx is extensive for 1. CAD s/p CABG with subsequent closure of vein grafts and then had RCA stent. Non-revascularizable coronaries. 2. HTN uncontrolled: labile 3. DM uncontrolled (non compliant with diet) 4. PAD s/p L. BKA abd R. ray amputation and chronic R. heel ulcer; hx of R.SFA/ popliteal angioplasty and AT stent with eventual R. BKA. 5. kleinfelters 6. ASX moderate pulmonary stenosis 7. hx of chronic pain, hx of liver abscess and infections 8. legally blind 9. Pain medication dependence 10. Hx of non-compliance with missed HD in the past SOCHX: No Tobacco, ETOH or DRUBG abuse PSHX: as above ROS: legally blind, B/K BKA Review of Systems - Review of Systems All systems: reviewed and no additional remarkable complaints except Past Patient History - Infectious Disease Hx of Infectious Diseases: MRSA - Tetanus Immunizations Tetanus Immunization: >10 years Ago - Past Medical History & Family History Past Medical History?: Yes - Past Social History Smoking Status: Never Smoked - CARDIAC Hx Atrial Fibrillation: Yes Hx Cardia Arrhythmia: Yes Hx Congestive Heart Failure: Yes Hx Hypercholesterolemia: Yes Hx Hypertension: Yes - PULMONARY Hx Asthma: Yes Hx Bronchitis: Yes Hx Chronic Obstructive Pulmonary Disease (COPD): Yes - NEUROLOGICAL Hx Alzheimer's Disease: Yes Hx Seizures: Yes - HEENT Hx HEENT Problems: Yes Hx Blind: Yes (legally blind) Hx Cataracts: Yes - RENAL Hx Chronic Kidney Disease: Yes Date of Last Dialysis Treatment: 01/15/17 - ENDOCRINE/METABOLIC Hx Hyperthyroidism: Yes Hx Hypothyroidism: Yes - HEMATOLOGICAL/ONCOLOGICAL Hx Anemia: Yes - INTEGUMENTARY Hx Dermatological Problems: No - MUSCULOSKELETAL/RHEUMATOLOGICAL Hx Arthritis: Yes Hx Falls: No - GASTROINTESTINAL Hx Gall Bladder Disease: Yes - GENITOURINARY/GYNECOLOGICAL Hx Sexually Transmitted Disorders: No - PSYCHIATRIC Hx Anxiety: Yes Hx Depression: Yes Hx Substance Use: No - SURGICAL HISTORY Hx Cholecystectomy: Yes (2011) 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/2009) Hx Coronary Stent: Yes (X3) - ANESTHESIA Hx Anesthesia: Yes Hx Anesthesia Reactions: No Hx Malignant Hyperthermia: No Meds Allergies/Adverse Reactions: Allergies Allergy/AdvReac Type Severity Reaction Status Date / Time acetaminophen [From Percocet] Allergy RASH Verified 12/18/16 10:59 atenolol Allergy RASH Verified 12/18/16 10:59 digoxin Allergy RASH Verified 12/18/16 10:59 milk Allergy ITCHING Verified 12/18/16 10:59 morphine Allergy ITCHING Verified 12/18/16 10:59 oxycodone HCl [From Percocet] Allergy RASH Verified 12/18/16 10:59 - Medications Medications: Current Medications Albuterol/Ipratropium (Duoneb 3 Mg/0.5 Mg (3 Ml) Ud) 3 ml INH QID [facility] Last Admin: 01/16/17 07:20 Dose: 3 ml Amlodipine Besylate (Norvasc) 10 mg PO DAILY [facility] Carvedilol (Coreg) 25 mg PO BID [facility] Heparin Sodium (Porcine) (Heparin) 5,000 units SC Q12 [facility] Hydralazine HCl (Apresoline) 100 mg PO BID [facility] Hydromorphone HCl (Dilaudid) 1 mg IVP Q6H PRN PRN Reason: Pain, severe (8-10) Last Admin: 01/16/17 09:14 Dose: 1 mg Insulin Aspart (Novolog) 0 unit SC ACTID [facility] PRN Reason: Protocol Last Admin: 01/16/17 08:16 Dose: Not Given Insulin Aspart (Novolog) 8 unit SC ACTID [facility] Last Admin: 01/16/17 08:15 Dose: 8 unit Insulin Glargine (Lantus) 15 unit SC HS [facility] Last Admin: 01/15/17 22:58 Dose: 15 units Physical Exam - Constitutional Appears: No Acute Distress - Head Exam Head Exam: ATRAUMATIC, NORMAL INSPECTION, NORMOCEPHALIC - Eye Exam Eye Exam: absent: Normal appearance (legally blind) - ENT Exam ENT Exam: Mucous Membranes Moist, Normal Oropharynx - Neck Exam Neck exam: Positive for: Normal Inspection. Negative for: Tenderness, Thyromegaly - Respiratory Exam Respiratory Exam: Clear to Auscultation Bilateral, NORMAL BREATHING PATTERN - Cardiovascular Exam Cardiovascular Exam: REGULAR RHYTHM, +S1, +S2, Systolic Murmur. absent: +S4 - GI/Abdominal Exam GI & Abdominal Exam: Normal Bowel Sounds, Soft. absent: Guarding, Rebound - Extremities Exam Extremities exam: Negative for: normal inspection (b/l BKA) - Neurological Exam Neurological exam: Alert, Oriented x3 - Psychiatric Exam Psychiatric exam: Normal Affect - Skin Skin Exam: Normal Color, Warm - Additional Findings Additional findings: R. chest HD catheter Results - Vital Signs Recent Vital Signs: Last Vital Signs Temp 98.1 F 01/16/17 09:00 Pulse 53 L 01/16/17 09:00 Resp 20 01/16/17 09:00 BP 190/68 H 01/16/17 09:00 Pulse Ox 97 01/16/17 09:00 - Labs Result Diagrams: 01/16/17 08:08 01/15/17 19:32 Labs: Laboratory Results - last 24 hr 01/15/17 01/15/17 01/16/17 19:32 22:05 06:40 WBC RBC Hgb Hct MCV MCH MCHC RDW Plt Count MPV Sodium 134 Potassium 4.2 Chloride 92 L Carbon Dioxide 30 Anion Gap 17 BUN 21 H Creatinine 2.6 H Est GFR ( Amer) 34 Est GFR (Non-Af Amer) 28 POC Glucose (mg/dL) 254 H 140 H Random Glucose 255 H Calcium 8.4 L Total Bilirubin 1.0 AST 36 ALT 13 L D Alkaline Phosphatase 104 Total Creatine Kinase CK-MB (Mass) Troponin I 0.0250 Troponin I, Quant NT-Pro-B Natriuret Pep Total Protein 8.1 Albumin 4.4 Globulin 3.7 Albumin/Globulin Ratio 1.2 01/16/17 01/16/17 08:08 08:08 WBC 7.5 RBC 3.13 L Hgb 8.9 L Hct 27.8 L MCV 88.7 MCH 28.3 MCHC 31.9 L RDW 17.9 H Plt Count 175 MPV 8.9 Sodium Potassium Chloride Carbon Dioxide Anion Gap BUN Creatinine Est GFR ( Amer) Est GFR (Non-Af Amer) POC Glucose (mg/dL) Random Glucose Calcium Total Bilirubin AST ALT Alkaline Phosphatase Total Creatine Kinase < 20 L CK-MB (Mass) 0.36 Troponin I Troponin I, Quant 0.0360 NT-Pro-B Natriuret Pep 40645 H Total Protein Albumin Globulin Albumin/Globulin Ratio - EKG Data EKG Interpreted by: Myself (NSR, chronic LVH with strain pattern) - Imaging and Cardiology Chest x-ray Status: Image reviewed by me (mild-mod congestion) Assessment & Plan - Assessment and Plan (Free Text) Assessment: CAD: hx of CABG and stent; patient CAD status is stable and should be medically treated wth Coreg,IMDUR/Statin and DAPT. He has normal LV function with chronic diastolic dysfunction. EKG: read by me: NSR, chronic unchanged lateral ST chages, LVH and LAE * Troponin negative x2 low suspicion for ACS * LDL goal 50-70 * Diabetic control * DAPT, ASA, Coreg, Imdur * No active cardiac sx's; cont medical therapy. * No new EKG changes versus prior EKGs: NSR, LVH with strain pattern * Congestion cont volume removal with HD HTN: labile Continue medical treatment as prescribed Remains elevated: add minoxidil 2.5 daily in addition, inc hydralazine to 100 TID, possible clonidine rebound: suggest resume 0.1 TID DM: labile: Cont medical rx continued education and counseling management per primary team PAD: S/P B/L BKA ASX No signs of ulcer or wound dehiscence ESRD: Stable chem cont maintainence HD, Monitor lytes
--- NOTE | 2017-01-16 16:20 | CP.PCM.HP ---
History of Present Illness - History of Present Illness History of Present Illness: admited for severe htn vomiting chest pain Present on Admission - Present on Admission Any Indicators Present on Admission: Yes Review of Systems - Review of Systems Systems not reviewed;Unavailable: Acuity of Condition - Constitutional Constitutional: Fatigue - EENT Eyes: Blind Spots Ears: As Per HPI Nose/Mouth/Throat: Dry Mouth - Cardiovascular Cardiovascular: Chest Pain at Rest - Respiratory Respiratory: Dyspnea on Exertion - Gastrointestinal Gastrointestinal: Vomiting - Musculoskeletal Musculoskeletal: Numbness Additional comments: s/p bilateral amputation - Integumentary Integumentary: Dry Skin - Neurological Neurological: Sensory Deficit - Psychiatric Psychiatric: Depression - Endocrine Additional Comments: diabetic - Hematologic/Lymphatic Hematologic: Other Additional comments: aneamia Past Patient History - Infectious Disease Hx of Infectious Diseases: MRSA - Tetanus Immunizations Tetanus Immunization: >10 years Ago - Past Medical History & Family History Past Medical History?: Yes - Past Social History Smoking Status: Never Smoked - CARDIAC Hx Atrial Fibrillation: Yes Hx Cardia Arrhythmia: Yes Hx Congestive Heart Failure: Yes Hx Hypercholesterolemia: Yes Hx Hypertension: Yes - PULMONARY Hx Asthma: Yes Hx Bronchitis: Yes Hx Chronic Obstructive Pulmonary Disease (COPD): Yes - NEUROLOGICAL Hx Alzheimer's Disease: Yes Hx Seizures: Yes - HEENT Hx HEENT Problems: Yes Hx Blind: Yes (legally blind) Hx Cataracts: Yes - RENAL Hx Chronic Kidney Disease: Yes - ENDOCRINE/METABOLIC Hx Hyperthyroidism: Yes Hx Hypothyroidism: Yes - HEMATOLOGICAL/ONCOLOGICAL Hx Anemia: Yes - INTEGUMENTARY Hx Dermatological Problems: No - MUSCULOSKELETAL/RHEUMATOLOGICAL Hx Arthritis: Yes - GASTROINTESTINAL Hx Gall Bladder Disease: Yes - GENITOURINARY/GYNECOLOGICAL Hx Sexually Transmitted Disorders: No - PSYCHIATRIC Hx Anxiety: Yes Hx Depression: Yes Hx Substance Use: No - SURGICAL HISTORY Hx Cholecystectomy: Yes (2011) 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/2009) Hx Coronary Stent: Yes (X3) - ANESTHESIA Hx Anesthesia: Yes Hx Anesthesia Reactions: No Hx Malignant Hyperthermia: No Meds Allergies/Adverse Reactions: Allergies Allergy/AdvReac Type Severity Reaction Status Date / Time acetaminophen [From Percocet] Allergy RASH Verified 12/18/16 10:59 atenolol Allergy RASH Verified 12/18/16 10:59 digoxin Allergy RASH Verified 12/18/16 10:59 milk Allergy ITCHING Verified 12/18/16 10:59 morphine Allergy ITCHING Verified 12/18/16 10:59 oxycodone HCl [From Percocet] Allergy RASH Verified 12/18/16 10:59 Physical Exam - Constitutional Appears: In Acute Distress - Head Exam Head Exam: ATRAUMATIC - Eye Exam Additional comments: legaly blind - ENT Exam ENT Exam: Mucous Membranes Dry - Neck Exam Neck exam: Positive for: Full Rom - Respiratory Exam Respiratory Exam: Decreased Breath Sounds - Cardiovascular Exam Cardiovascular Exam: REGULAR RHYTHM - GI/Abdominal Exam GI & Abdominal Exam: Normal Bowel Sounds - Rectal Exam Rectal Exam: NORMAL INSPECTION - Extremities Exam Additional comments: s/p bilateral amputation - Back Exam Back exam: CVA tenderness (R) - Psychiatric Exam Psychiatric exam: Normal Affect - Skin Skin Exam: Pallor Results - Vital Signs Recent Vital Signs: Last Vital Signs Temp 97.9 F 01/16/17 15:14 Pulse 69 01/16/17 15:14 Resp 18 01/16/17 15:14 BP 212/76 H 01/16/17 15:14 Pulse Ox 99 01/16/17 15:14 - Labs Result Diagrams: 01/16/17 08:08 01/15/17 19:32 Labs: Laboratory Results - last 24 hr 01/15/17 01/15/17 01/16/17 19:32 22:05 06:40 WBC RBC Hgb Hct MCV MCH MCHC RDW Plt Count MPV Sodium 134 Potassium 4.2 Chloride 92 L Carbon Dioxide 30 Anion Gap 17 BUN 21 H Creatinine 2.6 H Est GFR ( Amer) 34 Est GFR (Non-Af Amer) 28 POC Glucose (mg/dL) 254 H 140 H Random Glucose 255 H Calcium 8.4 L Total Bilirubin 1.0 AST 36 ALT 13 L D Alkaline Phosphatase 104 Total Creatine Kinase CK-MB (Mass) Troponin I 0.0250 Troponin I, Quant NT-Pro-B Natriuret Pep Total Protein 8.1 Albumin 4.4 Globulin 3.7 Albumin/Globulin Ratio 1.2 01/16/17 01/16/17 01/16/17 08:08 08:08 12:07 WBC 7.5 RBC 3.13 L Hgb 8.9 L Hct 27.8 L MCV 88.7 MCH 28.3 MCHC 31.9 L RDW 17.9 H Plt Count 175 MPV 8.9 Sodium Potassium Chloride Carbon Dioxide Anion Gap BUN Creatinine Est GFR ( Amer) Est GFR (Non-Af Amer) POC Glucose (mg/dL) 89 Random Glucose Calcium Total Bilirubin AST ALT Alkaline Phosphatase Total Creatine Kinase < 20 L CK-MB (Mass) 0.36 Troponin I Troponin I, Quant 0.0360 NT-Pro-B Natriuret Pep [address] H Total Protein Albumin Globulin Albumin/Globulin Ratio Assessment & Plan - Assessment and Plan (Free Text) Assessment: severe htn vomiting cad chf esrf dmid Plan: cont as per orders - Date & Time Date: 01/16/17 Time: 16:24
--- NOTE | 2017-01-16 19:07 | CP.PCM.CON ---
History of Present Illness - History of Present Illness History of Present Illness: 36 y/o male with ESRD on HD, CAD/CABG,HTN, IDDM with complication Is amitted for c/o chest pain Renal consult is requested for Mx of ESRD Past Patient History - Infectious Disease Hx of Infectious Diseases: MRSA - Tetanus Immunizations Tetanus Immunization: >10 years Ago - Past Medical History & Family History Past Medical History?: Yes - Past Social History Smoking Status: Never Smoked - CARDIAC Hx Atrial Fibrillation: Yes Hx Cardia Arrhythmia: Yes Hx Congestive Heart Failure: Yes Hx Hypercholesterolemia: Yes Hx Hypertension: Yes - PULMONARY Hx Asthma: Yes Hx Bronchitis: Yes Hx Chronic Obstructive Pulmonary Disease (COPD): Yes - NEUROLOGICAL Hx Alzheimer's Disease: Yes Hx Seizures: Yes - HEENT Hx HEENT Problems: Yes Hx Blind: Yes (legally blind) Hx Cataracts: Yes - RENAL Hx Chronic Kidney Disease: Yes - ENDOCRINE/METABOLIC Hx Hyperthyroidism: Yes Hx Hypothyroidism: Yes - HEMATOLOGICAL/ONCOLOGICAL Hx Anemia: Yes - INTEGUMENTARY Hx Dermatological Problems: No - MUSCULOSKELETAL/RHEUMATOLOGICAL Hx Arthritis: Yes - GASTROINTESTINAL Hx Gall Bladder Disease: Yes - GENITOURINARY/GYNECOLOGICAL Hx Sexually Transmitted Disorders: No - PSYCHIATRIC Hx Anxiety: Yes Hx Depression: Yes Hx Substance Use: No - SURGICAL HISTORY Hx Cholecystectomy: Yes (2011) 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/2009) Hx Coronary Stent: Yes (X3) - ANESTHESIA Hx Anesthesia: Yes Hx Anesthesia Reactions: No Hx Malignant Hyperthermia: No Meds Allergies/Adverse Reactions: Allergies Allergy/AdvReac Type Severity Reaction Status Date / Time acetaminophen [From Percocet] Allergy RASH Verified 12/18/16 10:59 atenolol Allergy RASH Verified 12/18/16 10:59 digoxin Allergy RASH Verified 12/18/16 10:59 milk Allergy ITCHING Verified 12/18/16 10:59 morphine Allergy ITCHING Verified 12/18/16 10:59 oxycodone HCl [From Percocet] Allergy RASH Verified 12/18/16 10:59 - Medications Medications: Current Medications Albuterol/Ipratropium (Duoneb 3 Mg/0.5 Mg (3 Ml) Ud) 3 ml INH RQID [facility] Amlodipine Besylate (Norvasc) 10 mg PO DAILY [facility] Last Admin: 01/16/17 10:23 Dose: 10 mg Carvedilol (Coreg) 25 mg PO BID [facility] Last Admin: 01/16/17 18:27 Dose: 25 mg Chlorthalidone (Hygroton) 25 mg PO DAILY [facility] Clonidine HCl (Catapres) 0.3 mg PO TID [facility] Last Admin: 01/16/17 18:27 Dose: 0.3 mg Heparin Sodium (Porcine) (Heparin) 5,000 units SC Q12 [facility] Last Admin: 01/16/17 10:24 Dose: 5,000 units Hydralazine HCl (Apresoline) 100 mg PO Q8H [facility] Last Admin: 01/16/17 13:46 Dose: 100 mg Hydromorphone HCl (Dilaudid) 1 mg IVP Q6H PRN PRN Reason: Pain, severe (8-10) Last Admin: 01/16/17 15:27 Dose: 1 mg Insulin Aspart (Novolog) 0 unit SC ACTID [facility] PRN Reason: Protocol Last Admin: 01/16/17 18:28 Dose: 8 unit Insulin Aspart (Novolog) 8 unit SC ACTID [facility] Last Admin: 01/16/17 18:28 Dose: Not Given Insulin Glargine (Lantus) 15 unit SC HS [facility] Last Admin: 01/15/17 22:58 Dose: 15 units Sertraline HCl (Zoloft) 50 mg PO DAILY [facility] Last Admin: 01/16/17 18:27 Dose: 50 mg Physical Exam - Constitutional Appears: No Acute Distress - Head Exam Head Exam: ATRAUMATIC, NORMOCEPHALIC - Eye Exam Additional comments: Pt is blind - ENT Exam ENT Exam: Mucous Membranes Moist - Cardiovascular Exam Cardiovascular Exam: REGULAR RHYTHM - GI/Abdominal Exam GI & Abdominal Exam: Soft Additional comments: No tenderness - Extremities Exam Additional comments: B/L BKA Results - Vital Signs Recent Vital Signs: Last Vital Signs Temp 97.9 F 01/16/17 15:14 Pulse 69 01/16/17 15:14 Resp 18 01/16/17 15:14 BP 212/69 H 01/16/17 18:27 Pulse Ox 99 01/16/17 15:14 - Labs Result Diagrams: 01/16/17 08:08 01/15/17 19:32 Labs: Laboratory Results - last 24 hr 01/15/17 01/15/17 01/16/17 19:32 22:05 06:40 WBC RBC Hgb Hct MCV MCH MCHC RDW Plt Count MPV Sodium 134 Potassium 4.2 Chloride 92 L Carbon Dioxide 30 Anion Gap 17 BUN 21 H Creatinine 2.6 H Est GFR ( Amer) 34 Est GFR (Non-Af Amer) 28 POC Glucose (mg/dL) 254 H 140 H Random Glucose 255 H Calcium 8.4 L Total Bilirubin 1.0 AST 36 ALT 13 L D Alkaline Phosphatase 104 Total Creatine Kinase CK-MB (Mass) Troponin I 0.0250 Troponin I, Quant NT-Pro-B Natriuret Pep Total Protein 8.1 Albumin 4.4 Globulin 3.7 Albumin/Globulin Ratio 1.2 01/16/17 01/16/17 01/16/17 08:08 08:08 12:07 WBC 7.5 RBC 3.13 L Hgb 8.9 L Hct 27.8 L MCV 88.7 MCH 28.3 MCHC 31.9 L RDW 17.9 H Plt Count 175 MPV 8.9 Sodium Potassium Chloride Carbon Dioxide Anion Gap BUN Creatinine Est GFR ( Amer) Est GFR (Non-Af Amer) POC Glucose (mg/dL) 89 Random Glucose Calcium Total Bilirubin AST ALT Alkaline Phosphatase Total Creatine Kinase < 20 L CK-MB (Mass) 0.36 Troponin I Troponin I, Quant 0.0360 NT-Pro-B Natriuret Pep 78930 H Total Protein Albumin Globulin Albumin/Globulin Ratio 01/16/17 16:16 WBC RBC Hgb Hct MCV MCH MCHC RDW Plt Count MPV Sodium Potassium Chloride Carbon Dioxide Anion Gap BUN Creatinine Est GFR ( Amer) Est GFR (Non-Af Amer) POC Glucose (mg/dL) 105 Random Glucose Calcium Total Bilirubin AST ALT Alkaline Phosphatase Total Creatine Kinase CK-MB (Mass) Troponin I Troponin I, Quant NT-Pro-B Natriuret Pep Total Protein Albumin Globulin Albumin/Globulin Ratio Assessment & Plan - Assessment and Plan (Free Text) Assessment: ESRD Chest pain. CAD/CABG HTN uncontrolled IDDM Plan: For dialysis tomorrow Increase UF as tolerated Monitor Hb
[2017-01-16] MEDS: (Lantus) Insulin Glargine, Recombinant SC SCH (21:39)
[2017-01-17] MEDS: HYDROmorphone 1 mg/ml ISec IVP PRN (03:35)
[2017-01-17] MEDS: Albuterol-Ipratrop 3 mg / 0.5 (3 ml) UD INH SCH ×4 (08:25→19:38)
[2017-01-17] MEDS: (Lantus) Insulin Glargine, Recombinant SC SCH (21:42)
[2017-01-17] MEDS ORDERED: Dextrose 50% SYRINGE Inj (50 ml) IV STA (21:59)
[2017-01-17] MEDS ORDERED: Dextrose 50% SYRINGE Inj (50 ml) ONE (22:07)
[2017-01-18] MEDS: HYDROmorphone 1 mg/ml ISec IVP PRN ×4 (00:35→18:47)
[2017-01-18] MEDS: Albuterol-Ipratrop 3 mg / 0.5 (3 ml) UD INH SCH ×3 (07:14→11:14)
[2017-01-18] MEDS: (Novolog) Insulin Aspart, Recombinant 100 u/ml 10 ml vial SC SCH ×5 (08:13→18:50)
--- NOTE | 2017-01-18 11:53 | CP.PCM.PN ---
Subjective - Date & Time of Evaluation Date of Evaluation: 01/18/17 Time of Evaluation: 10:30 - Subjective Subjective: Comfortable in bed Objective - Vital Signs/Intake and Output Vital Signs (last 24 hours): Temp Pulse Resp BP Pulse Ox 98.6 F 74 17 154/55 H 100 01/18/17 07:10 01/18/17 09:00 01/18/17 07:10 01/18/17 09:44 01/18/17 07:10 - Medications Medications: Current Medications Albuterol/Ipratropium (Duoneb 3 Mg/0.5 Mg (3 Ml) Ud) 3 ml INH RQID [facility] Last Admin: 01/18/17 11:14 Dose: Not Given Amlodipine Besylate (Norvasc) 10 mg PO DAILY [facility] Last Admin: 01/18/17 09:45 Dose: 10 mg Carvedilol (Coreg) 25 mg PO BID [facility] Last Admin: 01/18/17 09:44 Dose: 25 mg Chlorthalidone (Hygroton) 25 mg PO DAILY [facility] Last Admin: 01/18/17 09:46 Dose: 25 mg Clonidine HCl (Catapres) 0.3 mg PO TID [facility] Last Admin: 01/18/17 09:45 Dose: 0.3 mg Heparin Sodium (Porcine) (Heparin) 5,000 units SC Q12 [facility] Last Admin: 01/18/17 09:45 Dose: 5,000 units Hydralazine HCl (Apresoline) 100 mg PO Q8H [facility] Last Admin: 01/18/17 05:24 Dose: 100 mg Hydromorphone HCl (Dilaudid) 1 mg IVP Q6H PRN PRN Reason: Pain, severe (8-10) Last Admin: 01/18/17 06:39 Dose: 1 mg Insulin Aspart (Novolog) 0 unit SC ACTID [facility] PRN Reason: Protocol Last Admin: 01/18/17 08:14 Dose: 3 unit Insulin Aspart (Novolog) 8 unit SC ACTID [facility] Last Admin: 01/18/17 08:13 Dose: 8 unit Insulin Glargine (Lantus) 15 unit SC HS [facility] Last Admin: 01/17/17 21:42 Dose: Not Given Pantoprazole Sodium (Protonix Inj) 40 mg IVP DAILY [facility] Sertraline HCl (Zoloft) 50 mg PO DAILY [facility] Last Admin: 01/18/17 09:44 Dose: 50 mg - Respiratory Exam Respiratory Exam: NORMAL BREATHING PATTERN - Cardiovascular Exam Cardiovascular Exam: REGULAR RHYTHM - Extremities Exam Additional comments: B/L BKA Assessment and Plan - Assessment and Plan (Free Text) Assessment: ESRD HTN Anemia IDDM CAD Plan: Continue HD per schedule Monitor HB Epogen
--- NOTE | 2017-01-18 12:01 | CP.PCM.PN ---
Subjective - Date & Time of Evaluation Date of Evaluation: 01/18/17 Time of Evaluation: 11:59 - Subjective Subjective: vomiting today bs 48 Objective - Vital Signs/Intake and Output Vital Signs (last 24 hours): Temp Pulse Resp BP Pulse Ox 98.6 F 74 17 154/55 H 100 01/18/17 07:10 01/18/17 09:00 01/18/17 07:10 01/18/17 09:44 01/18/17 07:10 - Medications Medications: Current Medications Albuterol/Ipratropium (Duoneb 3 Mg/0.5 Mg (3 Ml) Ud) 3 ml INH RQID [facility] Last Admin: 01/18/17 11:14 Dose: Not Given Amlodipine Besylate (Norvasc) 10 mg PO DAILY [facility] Last Admin: 01/18/17 09:45 Dose: 10 mg Carvedilol (Coreg) 25 mg PO BID [facility] Last Admin: 01/18/17 09:44 Dose: 25 mg Chlorthalidone (Hygroton) 25 mg PO DAILY [facility] Last Admin: 01/18/17 09:46 Dose: 25 mg Clonidine HCl (Catapres) 0.3 mg PO TID [facility] Last Admin: 01/18/17 09:45 Dose: 0.3 mg Epoetin Tom (Procrit) 6,000 unit IV TTS [facility] Heparin Sodium (Porcine) (Heparin) 5,000 units SC Q12 [facility] Last Admin: 01/18/17 09:45 Dose: 5,000 units Hydralazine HCl (Apresoline) 100 mg PO Q8H [facility] Last Admin: 01/18/17 05:24 Dose: 100 mg Hydromorphone HCl (Dilaudid) 1 mg IVP Q6H PRN PRN Reason: Pain, severe (8-10) Last Admin: 01/18/17 06:39 Dose: 1 mg Insulin Aspart (Novolog) 0 unit SC ACTID [facility] PRN Reason: Protocol Last Admin: 01/18/17 08:14 Dose: 3 unit Insulin Aspart (Novolog) 8 unit SC ACTID [facility] Last Admin: 01/18/17 08:13 Dose: 8 unit Insulin Glargine (Lantus) 15 unit SC HS [facility] Last Admin: 01/17/17 21:42 Dose: Not Given Pantoprazole Sodium (Protonix Inj) 40 mg IVP DAILY [facility] Sertraline HCl (Zoloft) 50 mg PO DAILY [facility] Last Admin: 01/18/17 09:44 Dose: 50 mg - Constitutional Appears: Non-toxic - Head Exam Head Exam: NORMAL INSPECTION - Eye Exam Eye Exam: Normal appearance Additional comments: legaly skip - ENT Exam ENT Exam: Normal Exam - Neck Exam Neck Exam: Normal Inspection - Respiratory Exam Respiratory Exam: Clear to Ausculation Bilateral - Cardiovascular Exam Cardiovascular Exam: REGULAR RHYTHM - GI/Abdominal Exam GI & Abdominal Exam: Tenderness - Rectal Exam Rectal Exam: NORMAL INSPECTION - Back Exam Back Exam: CVA tenderness (L) - Neurological Exam Neurological Exam: Oriented x3 - Psychiatric Exam Psychiatric exam: Normal Mood - Skin Skin Exam: Pallor Assessment and Plan - Assessment and Plan (Free Text) Assessment: recurent vomiting hypoglyceamia dmid esrf htn severe Plan: as per orders
[2017-01-18] MEDS ORDERED: (Novolog) Insulin Aspart, Recombinant 100 u/ml 10 ml vial SC ONE (17:26)
[2017-01-18] MEDS ORDERED: (Novolog) Insulin Aspart, Recombinant 100 u/ml 10 ml vial SC SCH (17:30)
--- NOTE | 2017-01-18 22:58 | CP.PCM.CON ---
History of Present Illness - History of Present Illness History of Present Illness: IDDM Past Patient History - Infectious Disease Hx of Infectious Diseases: MRSA - Tetanus Immunizations Tetanus Immunization: >10 years Ago - Past Medical History & Family History Past Medical History?: Yes - Past Social History Smoking Status: Never Smoked - CARDIAC Hx Atrial Fibrillation: Yes Hx Cardia Arrhythmia: Yes Hx Congestive Heart Failure: Yes Hx Hypercholesterolemia: Yes Hx Hypertension: Yes - NEUROLOGICAL Hx Alzheimer's Disease: Yes Hx Seizures: Yes - HEENT Hx HEENT Problems: Yes Hx Blind: Yes (legally blind) Hx Cataracts: Yes - RENAL Hx Chronic Kidney Disease: Yes - ENDOCRINE/METABOLIC Hx Hyperthyroidism: Yes Hx Hypothyroidism: Yes - INTEGUMENTARY Hx Dermatological Problems: No - MUSCULOSKELETAL/RHEUMATOLOGICAL Hx Arthritis: Yes - GASTROINTESTINAL Hx Gall Bladder Disease: Yes - GENITOURINARY/GYNECOLOGICAL Hx Sexually Transmitted Disorders: No - PSYCHIATRIC Hx Anxiety: Yes Hx Depression: Yes Hx Substance Use: No - SURGICAL HISTORY Hx Cholecystectomy: Yes (2011) 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/2009) Hx Coronary Stent: Yes (X3) - ANESTHESIA Hx Anesthesia: Yes Hx Anesthesia Reactions: No Hx Malignant Hyperthermia: No Meds Allergies/Adverse Reactions: Allergies Allergy/AdvReac Type Severity Reaction Status Date / Time acetaminophen [From Percocet] Allergy RASH Verified 12/18/16 10:59 atenolol Allergy RASH Verified 12/18/16 10:59 digoxin Allergy RASH Verified 12/18/16 10:59 milk Allergy ITCHING Verified 12/18/16 10:59 morphine Allergy ITCHING Verified 12/18/16 10:59 oxycodone HCl [From Percocet] Allergy RASH Verified 12/18/16 10:59 - Medications Medications: Current Medications Albuterol/Ipratropium (Duoneb 3 Mg/0.5 Mg (3 Ml) Ud) 3 ml INH RQID [facility] Last Admin: 01/18/17 11:14 Dose: Not Given Amlodipine Besylate (Norvasc) 10 mg PO DAILY [facility] Last Admin: 01/18/17 09:45 Dose: 10 mg Carvedilol (Coreg) 25 mg PO BID [facility] Last Admin: 01/18/17 09:44 Dose: 25 mg Chlorthalidone (Hygroton) 25 mg PO DAILY [facility] Last Admin: 01/18/17 09:46 Dose: 25 mg Clonidine HCl (Catapres) 0.3 mg PO TID [facility] Last Admin: 01/18/17 13:25 Dose: 0.3 mg Epoetin Tom (Procrit) 6,000 unit IV TTS [facility] Heparin Sodium (Porcine) (Heparin) 5,000 units SC Q12 [facility] Last Admin: 01/18/17 09:45 Dose: 5,000 units Hydralazine HCl (Apresoline) 100 mg PO Q8H [facility] Last Admin: 01/18/17 13:24 Dose: 100 mg Hydromorphone HCl (Dilaudid) 1 mg IVP Q6H PRN PRN Reason: Pain, severe (8-10) Last Admin: 01/18/17 18:47 Dose: 1 mg Insulin Aspart (Novolog) 8 unit SC ACTID [facility] Last Admin: 01/18/17 18:50 Dose: Not Given Insulin Aspart (Novolog) 0 unit SC ACTID [facility] PRN Reason: Protocol Pantoprazole Sodium (Protonix Inj) 40 mg IVP DAILY [facility] Last Admin: 01/18/17 12:17 Dose: 40 mg Sertraline HCl (Zoloft) 50 mg PO DAILY [facility] Last Admin: 01/18/17 09:44 Dose: 50 mg Results - Vital Signs Recent Vital Signs: Last Vital Signs Temp 99 F 01/18/17 15:00 Pulse 60 01/18/17 18:50 Resp 20 01/18/17 15:00 BP 110/57 L 01/18/17 18:50 Pulse Ox 99 01/18/17 15:00 - Labs Result Diagrams: 01/16/17 08:08 01/15/17 19:32 Assessment & Plan (1) Hypoglycemia due to insulin Assessment and Plan: Endocrine consult for hypoglycemia /uncontrolled IDDM Mr. Saha pt. is 36 y/o admitted to for chest pain , found with hypoglycemia @ 40 's pt. known to endocrine with uncontrolled IDDM /brittle ,complicated with ESRD on HD , retinopathy /legally blind , CAD s/p CABG , PVD s/p bilateral BKA , neuropathy , gastroparesis . on Novolog medium dose coverage , novolog 8 units tid also with h/o hypothyroidism off synthroid blood glucose log : 140-200 , epione episode of glucose 43 @ am yesterday , predinnder glucose > 400 was contacted by nurse in daynae advised to give only 10 units , repeat @ bed time 199 Allergy multiple as per record review Past medical history : as above Past surgical history : as above Psychiatry history : (+) psychiatry disorder Social history : denies smoking , ETOH use , illicit drug use Family history : mother & sister with diabetes ROS: Constitutional: denies fever ,tiredness/weakness .HEENT: denies earache, change in voice .Respiratory: denies cough, sob . CVS :no chest pain, no palpitations . Abdomen : no abdominal pain, s/p nausea /vomiting , no change bowel movement . 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 Extremities : no edema , no tremors .Skin: no itching, no rash Physical exam Well developed AAO x3 , ,NAD VSS HEENT: norm cephalic, atraumatic , no lid lag , no exophthalmos , pale NECK: supple, no palpable lymphadenopathy THYROID: no palpable thyromegaly , not tender CHEST: fair air entry, bilateral, CVS: S1,S2 ABDOMEN: bowel sound present, benign, obese, no wide purple striae , no bruises EXTREMITIES: no edema, clubbing or cyanosis, no palpable hand tremors , bilateral BKA Skin : acanthosis nigricans lab: NTP pro -SCREENER PERFUMER >8000 12/2016 TSH 1.80 , T3 1.22 , T4 7.61, ft4 1.25 Assessment sever hypoglycemia uncontrolled IDDM ESRD on HD PVD s/p b/l BKA diabetes retinopathy /legally blind h/o hypothyroidism chest pain /CHF plan d/c Novolog scale & prandial start Novolin R low dose coverage start Novolin R 6 units if eat more than 60% of the meal will monitor Status: Acute (2) ESRD (end stage renal disease) on dialysis Status: Acute (3) Diabetes mellitus with retinopathy Status: Acute (4) Diabetes mellitus, insulin dependent (IDDM), uncontrolled Status: Chronic
[2017-01-19] MEDS: HYDROmorphone 1 mg/ml ISec IVP PRN ×4 (01:05→21:58)
[2017-01-19] MEDS: (Novolin R) Insulin Human Regular 100 units/ml vial SC SCH ×7 (08:35→21:59)
[2017-01-19] MEDS: Albuterol-Ipratrop 3 mg / 0.5 (3 ml) UD INH SCH ×3 (08:48→20:39)
[2017-01-19 09:44] LABS: BASO # 0.1 K/uL (0.0-0.2); BASO % 0.6 % (0.0-2.0); EOS # 0.2 K/uL (0.0-0.7); EOS % 2.9 % (0.0-4.0); HEMATOCRIT 30.4 % (35.0-51.0); LYMPH # 2.5 K/uL (1.0-4.3); MEAN CELL VOLUME 89.2 fL (80.0-94.0); MEAN CORPUSCULAR HEMOGLOBIN 28.2 pg (27.0-31.0); MEAN CORPUSCULAR HGB CONC 31.6 g/dL (33.0-37.0); MEAN PLATELET VOLUME 9.3 fL (7.2-11.7); MONO # 0.7 K/uL (0.0-0.8); MONO % 7.9 % (0.0-10.0); WHITE BLOOD COUNT 8.2 K/uL (4.8-10.8)
[2017-01-19 09:51] LABS: POTASSIUM 4.1 mmol/L (3.6-5.2)
[2017-01-19] MEDS: Epoetin Alfa Dialysis 3000 UNIT/ML Inj IV SCH (10:00)
--- NOTE | 2017-01-19 11:34 | CP.PCM.PN ---
Subjective - Date & Time of Evaluation Date of Evaluation: 01/19/17 Time of Evaluation: 11:32 - Subjective Subjective: less sob no vomiting bs hi Objective - Vital Signs/Intake and Output Vital Signs (last 24 hours): Temp Pulse Resp BP Pulse Ox 97.8 F 64 16 104/54 L 98 01/19/17 09:30 01/19/17 10:30 01/19/17 10:30 01/19/17 10:30 01/19/17 10:30 Intake and Output: 01/19/17 01/19/17 06:59 18:59 Intake Total 300 Balance 300 - Medications Medications: Current Medications Albuterol/Ipratropium (Duoneb 3 Mg/0.5 Mg (3 Ml) Ud) 3 ml INH RQID [facility] Last Admin: 01/19/17 08:48 Dose: Not Given Amlodipine Besylate (Norvasc) 10 mg PO DAILY [facility] Last Admin: 01/19/17 09:02 Dose: Not Given Carvedilol (Coreg) 25 mg PO BID [facility] Last Admin: 01/19/17 09:02 Dose: Not Given Chlorthalidone (Hygroton) 25 mg PO DAILY [facility] Last Admin: 01/19/17 09:02 Dose: Not Given Clonidine HCl (Catapres) 0.3 mg PO TID [facility] Last Admin: 01/19/17 09:02 Dose: Not Given Epoetin Tom (Procrit) 6,000 unit IV TTS [facility] Heparin Sodium (Porcine) (Heparin) 5,000 units SC Q12 [facility] Last Admin: 01/19/17 08:56 Dose: 5,000 units Hydralazine HCl (Apresoline) 100 mg PO Q8H [facility] Last Admin: 01/19/17 05:01 Dose: 100 mg Hydromorphone HCl (Dilaudid) 1 mg IVP Q6H PRN PRN Reason: Pain, severe (8-10) Last Admin: 01/19/17 06:54 Dose: 1 mg Insulin Aspart (Novolog Mix 70/30 (70/30 Units/Ml)) 10 units SC HS [facility] Insulin Human Regular (Novolin R) 0 unit SC [facility] PRN Reason: Protocol Last Admin: 01/19/17 08:35 Dose: 5 unit Insulin Human Regular (Novolin R) 6 unit SC TIDCC [facility] Last Admin: 01/19/17 08:35 Dose: 6 unit Pantoprazole Sodium (Protonix Inj) 40 mg IVP DAILY [facility] Last Admin: 01/19/17 08:56 Dose: 40 mg Sertraline HCl (Zoloft) 50 mg PO DAILY [facility] Last Admin: 01/19/17 09:01 Dose: Not Given - Labs Labs: 01/19/17 09:37 01/19/17 09:37 - Constitutional Appears: Non-toxic - Head Exam Head Exam: NORMAL INSPECTION - ENT Exam ENT Exam: Mucous Membranes Dry - Neck Exam Neck Exam: Full ROM - Respiratory Exam Respiratory Exam: Decreased Breath Sounds - Cardiovascular Exam Cardiovascular Exam: REGULAR RHYTHM - GI/Abdominal Exam GI & Abdominal Exam: Normal Bowel Sounds - Rectal Exam Rectal Exam: NORMAL INSPECTION - Extremities Exam Additional comments: javier amputation - Back Exam Back Exam: CVA tenderness (L) - Neurological Exam Neurological Exam: Oriented x3 - Skin Skin Exam: Pallor Assessment and Plan - Assessment and Plan (Free Text) Assessment: uncontroled dm htn esrf copd cad Plan: as per orders
--- NOTE | 2017-01-19 15:48 | CP.PCM.PN ---
Subjective - Date & Time of Evaluation Date of Evaluation: 01/19/17 Time of Evaluation: 02:00 - Subjective Subjective: No c/o chest pain or sob Objective - Vital Signs/Intake and Output Vital Signs (last 24 hours): Temp Pulse Resp BP Pulse Ox 97.8 F 64 16 104/54 L 98 01/19/17 09:30 01/19/17 10:30 01/19/17 10:30 01/19/17 10:30 01/19/17 10:30 Intake and Output: 01/19/17 01/19/17 06:59 18:59 Intake Total 300 Balance 300 - Medications Medications: Current Medications Albuterol/Ipratropium (Duoneb 3 Mg/0.5 Mg (3 Ml) Ud) 3 ml INH RQID [facility] Last Admin: 01/19/17 12:01 Dose: Not Given Amlodipine Besylate (Norvasc) 10 mg PO DAILY [facility] Last Admin: 01/19/17 09:02 Dose: Not Given Carvedilol (Coreg) 25 mg PO BID [facility] Last Admin: 01/19/17 09:02 Dose: Not Given Chlorthalidone (Hygroton) 25 mg PO DAILY [facility] Last Admin: 01/19/17 09:02 Dose: Not Given Clonidine HCl (Catapres) 0.3 mg PO TID [facility] Last Admin: 01/19/17 14:04 Dose: 0.3 mg Epoetin Tom (Procrit) 6,000 unit IV TTS [facility] Heparin Sodium (Porcine) (Heparin) 5,000 units SC Q12 [facility] Last Admin: 01/19/17 13:09 Dose: Not Given Hydralazine HCl (Apresoline) 100 mg PO Q8H [facility] Last Admin: 01/19/17 13:27 Dose: Not Given Hydromorphone HCl (Dilaudid) 1 mg IVP Q6H PRN PRN Reason: Pain, severe (8-10) Last Admin: 01/19/17 14:04 Dose: 1 mg Insulin Glargine (Lantus) 10 unit SC HS [facility] Insulin Human Regular (Novolin R) 0 unit SC ACHS [facility] PRN Reason: Protocol Last Admin: 01/19/17 13:10 Dose: Not Given Insulin Human Regular (Novolin R) 6 unit SC TIDCC [facility] Last Admin: 01/19/17 13:10 Dose: Not Given Pantoprazole Sodium (Protonix Inj) 40 mg IVP DAILY [facility] Last Admin: 01/19/17 12:42 Dose: Not Given Sertraline HCl (Zoloft) 50 mg PO DAILY [facility] Last Admin: 01/19/17 09:01 Dose: Not Given - Labs Labs: 01/19/17 09:37 01/19/17 09:37 - Respiratory Exam Additional comments: Lungs clear - Cardiovascular Exam Cardiovascular Exam: REGULAR RHYTHM - Extremities Exam Additional comments: B/L BKA Assessment and Plan - Assessment and Plan (Free Text) Assessment: ESRD on HD HTN CAD IDDM Plan: Dialysis tolerated well today Continue HD per schedule
--- NOTE | 2017-01-19 20:42 | CP.PCM.PN ---
Subjective - Date & Time of Evaluation Date of Evaluation: 01/19/17 Time of Evaluation: 20:34 - Subjective Subjective: uncontrolled Objective - Vital Signs/Intake and Output Vital Signs (last 24 hours): Temp Pulse Resp BP Pulse Ox 97.6 F 54 L 18 125/64 98 01/19/17 15:22 01/19/17 15:55 01/19/17 15:22 01/19/17 17:53 01/19/17 15:22 - Medications Medications: Current Medications Albuterol/Ipratropium (Duoneb 3 Mg/0.5 Mg (3 Ml) Ud) 3 ml INH RQID [facility] Last Admin: 01/19/17 12:01 Dose: Not Given Amlodipine Besylate (Norvasc) 10 mg PO DAILY [facility] Last Admin: 01/19/17 09:02 Dose: Not Given Carvedilol (Coreg) 25 mg PO BID [facility] Last Admin: 01/19/17 17:53 Dose: 25 mg Chlorthalidone (Hygroton) 25 mg PO DAILY [facility] Last Admin: 01/19/17 09:02 Dose: Not Given Clonidine HCl (Catapres) 0.3 mg PO TID [facility] Last Admin: 01/19/17 17:53 Dose: 0.3 mg Epoetin Tom (Procrit) 6,000 unit IV TTS [facility] Last Admin: 01/19/17 10:00 Dose: Not Given Heparin Sodium (Porcine) (Heparin) 5,000 units SC Q12 [facility] Last Admin: 01/19/17 13:09 Dose: Not Given Hydralazine HCl (Apresoline) 100 mg PO Q8H [facility] Last Admin: 01/19/17 13:27 Dose: Not Given Hydromorphone HCl (Dilaudid) 1 mg IVP Q6H PRN PRN Reason: Pain, severe (8-10) Last Admin: 01/19/17 14:04 Dose: 1 mg Insulin Glargine (Lantus) 10 unit SC HS [facility] Insulin Human Regular (Novolin R) 0 unit SC ACHS [facility] PRN Reason: Protocol Last Admin: 01/19/17 17:29 Dose: Not Given Insulin Human Regular (Novolin R) 6 unit SC TIDCC [facility] Last Admin: 01/19/17 17:54 Dose: 6 unit Pantoprazole Sodium (Protonix Inj) 40 mg IVP DAILY [facility] Last Admin: 01/19/17 12:42 Dose: Not Given Sertraline HCl (Zoloft) 50 mg PO DAILY [facility] Last Admin: 01/19/17 09:01 Dose: Not Given - Labs Labs: 01/19/17 09:37 01/19/17 09:37 Assessment and Plan (1) Hypoglycemia due to insulin Assessment & Plan: Endocrine consult for hypoglycemia /uncontrolled IDDM Mr. Saha pt. is 36 y/o admitted to for chest pain , found with hypoglycemia @ 40 's pt. known to endocrine with uncontrolled IDDM /brittle ,complicated with ESRD on HD , retinopathy /legally blind , CAD s/p CABG , PVD s/p bilateral BKA , neuropathy , gastroparesis . on Novolog medium dose coverage , novolog 8 units tid also with h/o hypothyroidism off synthroid blood glucose log : 300-140 , no hypoglycemia , fluctuating appetite , s/p dialysis today Allergy multiple as per record review Past medical history : as above Past surgical history : as above Psychiatry history : (+) psychiatry disorder Social history : denies smoking , ETOH use , illicit drug use Family history : mother & sister with diabetes ROS: Constitutional: denies fever ,tiredness/weakness .HEENT: denies earache, change in voice .Respiratory: denies cough, sob . CVS :no chest pain, no palpitations . Abdomen : no abdominal pain, s/p nausea /vomiting , no change bowel movement . 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
[2017-01-19] MEDS: (Lantus) Insulin Glargine, Recombinant SC SCH (21:58)
[2017-01-19] MEDS ORDERED: (Lantus) Insulin Glargine, Recombinant SC SCH (22:00)
[2017-01-20] MEDS: HYDROmorphone 1 mg/ml ISec IVP PRN ×3 (04:00→16:27)
[2017-01-20] MEDS: Albuterol-Ipratrop 3 mg / 0.5 (3 ml) UD INH SCH ×2 (08:16→12:23)
[2017-01-20] MEDS: (Novolin R) Insulin Human Regular 100 units/ml vial SC SCH ×7 (09:22→21:43)
--- NOTE | 2017-01-20 11:17 | CP.PCM.PN ---
Subjective - Date & Time of Evaluation Date of Evaluation: 01/20/17 Time of Evaluation: 11:15 - Subjective Subjective: sob bs up and down ocasional vomiting Objective - Vital Signs/Intake and Output Vital Signs (last 24 hours): Temp Pulse Resp BP Pulse Ox 98.0 F 56 L 18 144/73 100 01/20/17 07:30 01/20/17 07:30 01/20/17 07:30 01/20/17 09:15 01/20/17 07:30 - Medications Medications: Current Medications Albuterol/Ipratropium (Duoneb 3 Mg/0.5 Mg (3 Ml) Ud) 3 ml INH RQID [facility] Last Admin: 01/20/17 08:16 Dose: Not Given Amlodipine Besylate (Norvasc) 10 mg PO DAILY [facility] Last Admin: 01/20/17 09:16 Dose: 10 mg Carvedilol (Coreg) 25 mg PO BID [facility] Last Admin: 01/20/17 09:15 Dose: 25 mg Chlorthalidone (Hygroton) 25 mg PO DAILY [facility] Last Admin: 01/20/17 10:34 Dose: 25 mg Clonidine HCl (Catapres) 0.3 mg PO TID [facility] Last Admin: 01/20/17 09:16 Dose: 0.3 mg Epoetin Tom (Procrit) 6,000 unit IV TTS [facility] Last Admin: 01/19/17 10:00 Dose: Not Given Heparin Sodium (Porcine) (Heparin) 5,000 units SC Q12 [facility] Last Admin: 01/20/17 09:18 Dose: Not Given Hydralazine HCl (Apresoline) 100 mg PO Q8H [facility] Last Admin: 01/20/17 05:00 Dose: 100 mg Hydromorphone HCl (Dilaudid) 1 mg IVP Q6H PRN PRN Reason: Pain, severe (8-10) Last Admin: 01/20/17 10:02 Dose: 1 mg Insulin Glargine (Lantus) 7 unit SC HS [facility] Last Admin: 01/19/17 21:58 Dose: 7 units Insulin Human Regular (Novolin R) 0 unit SC ACHS [facility] PRN Reason: Protocol Last Admin: 01/20/17 09:22 Dose: 1 unit Insulin Human Regular (Novolin R) 4 unit SC TIDCC [facility] Last Admin: 01/20/17 09:22 Dose: 4 unit Pantoprazole Sodium (Protonix Inj) 40 mg IVP DAILY [facility] Last Admin: 01/20/17 09:16 Dose: 40 mg Sertraline HCl (Zoloft) 50 mg PO DAILY [facility] Last Admin: 01/20/17 09:15 Dose: 50 mg - Labs Labs: 01/19/17 09:37 01/19/17 09:37 - Constitutional Appears: Non-toxic, Chronically Ill - Head Exam Head Exam: ATRAUMATIC - ENT Exam ENT Exam: Mucous Membranes Dry - Neck Exam Neck Exam: Full ROM - Respiratory Exam Respiratory Exam: Decreased Breath Sounds - GI/Abdominal Exam GI & Abdominal Exam: Tenderness, Normal Bowel Sounds - Rectal Exam Rectal Exam: NORMAL INSPECTION - Extremities Exam Additional comments: bilateral AKA - Psychiatric Exam Psychiatric exam: Depressed - Skin Skin Exam: Dry Assessment and Plan - Assessment and Plan (Free Text) Assessment: UNCONTROLED DMID ESRF CAD Plan: CONT PER ORDERS
--- NOTE | 2017-01-20 14:11 | CP.PCM.PN ---
Subjective - Date & Time of Evaluation Date of Evaluation: 01/20/17 Time of Evaluation: 02:00 - Subjective Subjective: No c/o SOB or CP Objective - Vital Signs/Intake and Output Vital Signs (last 24 hours): Temp Pulse Resp BP Pulse Ox 98.0 F 56 L 18 144/73 100 01/20/17 07:30 01/20/17 07:30 01/20/17 07:30 01/20/17 09:15 01/20/17 07:30 - Medications Medications: Current Medications Albuterol/Ipratropium (Duoneb 3 Mg/0.5 Mg (3 Ml) Ud) 3 ml INH RQID [facility] Last Admin: 01/20/17 12:23 Dose: Not Given Amlodipine Besylate (Norvasc) 10 mg PO DAILY [facility] Last Admin: 01/20/17 09:16 Dose: 10 mg Carvedilol (Coreg) 25 mg PO BID [facility] Last Admin: 01/20/17 09:15 Dose: 25 mg Chlorthalidone (Hygroton) 25 mg PO DAILY [facility] Last Admin: 01/20/17 10:34 Dose: 25 mg Clonidine HCl (Catapres) 0.3 mg PO TID [facility] Last Admin: 01/20/17 09:16 Dose: 0.3 mg Epoetin Tom (Procrit) 6,000 unit IV TTS [facility] Last Admin: 01/19/17 10:00 Dose: Not Given Heparin Sodium (Porcine) (Heparin) 5,000 units SC Q12 [facility] Last Admin: 01/20/17 09:18 Dose: Not Given Hydralazine HCl (Apresoline) 100 mg PO Q8H [facility] Last Admin: 01/20/17 05:00 Dose: 100 mg Hydromorphone HCl (Dilaudid) 1 mg IVP Q6H PRN PRN Reason: Pain, severe (8-10) Last Admin: 01/20/17 10:02 Dose: 1 mg Insulin Glargine (Lantus) 7 unit SC HS [facility] Last Admin: 01/19/17 21:58 Dose: 7 units Insulin Human Regular (Novolin R) 0 unit SC ACHS [facility] PRN Reason: Protocol Last Admin: 01/20/17 12:33 Dose: 1 unit Insulin Human Regular (Novolin R) 4 unit SC TIDCC [facility] Last Admin: 01/20/17 12:33 Dose: 4 unit Pantoprazole Sodium (Protonix Inj) 40 mg IVP DAILY [facility] Last Admin: 01/20/17 09:16 Dose: 40 mg Sertraline HCl (Zoloft) 50 mg PO DAILY [facility] Last Admin: 01/20/17 09:15 Dose: 50 mg - Labs Labs: 01/19/17 09:37 01/19/17 09:37 - Respiratory Exam Additional comments: Lungs clear - Cardiovascular Exam Cardiovascular Exam: REGULAR RHYTHM - Extremities Exam Additional comments: B/L BKA Assessment and Plan - Assessment and Plan (Free Text) Assessment: ESRD HTN CAD IDDM PVD Plan: Stable on dialysis. BP is controlled Continue HD TTS
--- NOTE | 2017-01-20 18:14 | CARD ---
APPROVED REPORT EKG Measurement Heart [id number] <Conclusion> Sinus bradycardia Left ventricular hypertrophy with repolarization abnormality Abnormal ECG
--- NOTE | 2017-01-20 19:49 | CP.PCM.PN ---
Subjective - Date & Time of Evaluation Date of Evaluation: 01/20/17 Time of Evaluation: 19:46 - Subjective Subjective: uncontroled IDDM & hypoglycemia Objective - Vital Signs/Intake and Output Vital Signs (last 24 hours): Temp Pulse Resp BP Pulse Ox 99.0 F 52 L 20 116/62 100 01/20/17 16:51 01/20/17 16:51 01/20/17 16:51 01/20/17 17:48 01/20/17 16:51 - Medications Medications: Current Medications Albuterol/Ipratropium (Duoneb 3 Mg/0.5 Mg (3 Ml) Ud) 3 ml INH RQID [facility] Last Admin: 01/20/17 12:23 Dose: Not Given Amlodipine Besylate (Norvasc) 10 mg PO DAILY [facility] Last Admin: 01/20/17 09:16 Dose: 10 mg Carvedilol (Coreg) 25 mg PO BID [facility] Last Admin: 01/20/17 17:48 Dose: 25 mg Chlorthalidone (Hygroton) 25 mg PO DAILY [facility] Last Admin: 01/20/17 10:34 Dose: 25 mg Clonidine HCl (Catapres) 0.3 mg PO TID [facility] Last Admin: 01/20/17 17:44 Dose: Not Given Epoetin Tom (Procrit) 6,000 unit IV TTS [facility] Last Admin: 01/19/17 10:00 Dose: Not Given Heparin Sodium (Porcine) (Heparin) 5,000 units SC Q12 [facility] Last Admin: 01/20/17 09:18 Dose: Not Given Hydralazine HCl (Apresoline) 100 mg PO Q8H [facility] Last Admin: 01/20/17 14:24 Dose: 100 mg Hydromorphone HCl (Dilaudid) 1 mg IVP Q6H PRN PRN Reason: Pain, severe (8-10) Last Admin: 01/20/17 16:27 Dose: 1 mg Insulin Glargine (Lantus) 7 unit SC HS [facility] Last Admin: 01/19/17 21:58 Dose: 7 units Insulin Human Regular (Novolin R) 0 unit SC ACHS [facility] PRN Reason: Protocol Last Admin: 01/20/17 16:31 Dose: Not Given Insulin Human Regular (Novolin R) 4 unit SC TIDCC [facility] Last Admin: 05/21/17 16:32 Dose: Not Given Pantoprazole Sodium (Protonix Inj) 40 mg IVP DAILY [facility] Last Admin: 01/20/17 09:16 Dose: 40 mg Sertraline HCl (Zoloft) 50 mg PO DAILY [facility] Last Admin: 01/20/17 09:15 Dose: 50 mg - Labs Labs: 01/19/17 09:37 01/19/17 09:37 Assessment and Plan (1) Hypoglycemia due to insulin Assessment & Plan: Assessment & Plan: Endocrine consult for hypoglycemia /uncontrolled IDDM Mr. Saha pt. is 36 y/o admitted to for chest pain , found with hypoglycemia @ 40 's pt. known to endocrine with uncontrolled IDDM /brittle ,complicated with ESRD on HD , retinopathy /legally blind , CAD s/p CABG , PVD s/p bilateral BKA , neuropathy , gastroparesis . on Novolog medium dose coverage , novolog 8 units tid also with h/o hypothyroidism off synthroid blood glucose log : as per nurse in charge ? fasting , @ 11am 215 & 4pm 120 , fluctuating appetite , no hypoglycemia Allergy multiple as per record review Past medical history : as above Past surgical history : as above Psychiatry history : (+) psychiatry disorder Social history : denies smoking , ETOH use , illicit drug use Family history : mother & sister with diabetes ROS: Constitutional: denies fever ,tiredness/weakness .HEENT: denies earache, change in voice .Respiratory: denies cough, sob . CVS :no chest pain, no palpitations . Abdomen : no abdominal pain, s/p nausea /vomiting , no change bowel movement . 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
[2017-01-20] MEDS: (Lantus) Insulin Glargine, Recombinant SC SCH (22:11)
[2017-01-21] MEDS: HYDROmorphone 1 mg/ml ISec IVP PRN ×4 (01:48→20:41)
[2017-01-21] MEDS: (Novolin R) Insulin Human Regular 100 units/ml vial SC SCH ×6 (08:07→19:18)
--- NOTE | 2017-01-21 13:49 | CP.PCM.PN ---
Subjective - Date & Time of Evaluation Date of Evaluation: 01/21/17 Time of Evaluation: 02:00 - Subjective Subjective: Comfortable in bed Objective - Vital Signs/Intake and Output Vital Signs (last 24 hours): Temp Pulse Resp BP Pulse Ox 97.9 F 52 L 18 138/77 100 01/21/17 07:15 01/21/17 10:30 01/21/17 07:15 01/21/17 09:58 01/21/17 07:15 Intake and Output: 01/21/17 01/21/17 06:59 18:59 Intake Total 250 Balance 250 - Medications Medications: Current Medications Albuterol/Ipratropium (Duoneb 3 Mg/0.5 Mg (3 Ml) Ud) 3 ml INH RQID [facility] Last Admin: 01/20/17 12:23 Dose: Not Given Amlodipine Besylate (Norvasc) 10 mg PO DAILY [facility] Last Admin: 01/21/17 09:59 Dose: 10 mg Carvedilol (Coreg) 12.5 mg PO BID [facility] Chlorthalidone (Hygroton) 25 mg PO DAILY [facility] Last Admin: 01/21/17 10:00 Dose: 25 mg Clonidine HCl (Catapres) 0.3 mg PO TID [facility] Last Admin: 01/21/17 13:19 Dose: 0.3 mg Epoetin Tom (Procrit) 6,000 unit IV TTS [facility] Last Admin: 01/19/17 10:00 Dose: Not Given Heparin Sodium (Porcine) (Heparin) 5,000 units SC Q12 [facility] Last Admin: 01/21/17 09:58 Dose: 5,000 units Hydralazine HCl (Apresoline) 100 mg PO Q8H [facility] Last Admin: 01/21/17 13:19 Dose: 100 mg Hydromorphone HCl (Dilaudid) 1 mg IVP Q6H PRN PRN Reason: Pain, severe (8-10) Last Admin: 01/21/17 07:59 Dose: 1 mg Insulin Glargine (Lantus) 7 unit SC HS [facility] Last Admin: 01/20/17 22:11 Dose: 7 units Insulin Human Regular (Novolin R) 0 unit SC ACHS [facility] PRN Reason: Protocol Last Admin: 01/21/17 13:10 Dose: 2 unit Insulin Human Regular (Novolin R) 4 unit SC TIDCC [facility] Last Admin: 01/21/17 13:09 Dose: 4 unit Pantoprazole Sodium (Protonix Inj) 40 mg IVP DAILY [facility] Last Admin: 01/21/17 09:58 Dose: 40 mg Sertraline HCl (Zoloft) 50 mg PO DAILY [facility] Last Admin: 01/21/17 09:59 Dose: 50 mg - Labs Labs: 01/19/17 09:37 01/19/17 09:37 - Respiratory Exam Respiratory Exam: NORMAL BREATHING PATTERN - Cardiovascular Exam Cardiovascular Exam: REGULAR RHYTHM - Extremities Exam Additional comments: B/L BKA Assessment and Plan - Assessment and Plan (Free Text) Assessment: ESRD on HD HTN CAD IDDM Plan: Stable on dialysis Cont HD per schedule
--- NOTE | 2017-01-21 17:20 | CP.PCM.PN ---
Subjective - Date & Time of Evaluation Date of Evaluation: 01/21/17 Time of Evaluation: 17:18 - Subjective Subjective: c/o pain r knee Objective - Vital Signs/Intake and Output Vital Signs (last 24 hours): Temp Pulse Resp BP Pulse Ox 98.5 F 50 L 20 109/62 98 01/21/17 16:15 01/21/17 16:15 01/21/17 16:15 01/21/17 16:15 01/21/17 16:15 Intake and Output: 01/21/17 01/21/17 06:59 18:59 Intake Total 250 Balance 250 - Medications Medications: Current Medications Albuterol/Ipratropium (Duoneb 3 Mg/0.5 Mg (3 Ml) Ud) 3 ml INH RQID [facility] Last Admin: 01/20/17 12:23 Dose: Not Given Amlodipine Besylate (Norvasc) 10 mg PO DAILY [facility] Last Admin: 01/21/17 09:59 Dose: 10 mg Carvedilol (Coreg) 12.5 mg PO BID [facility] Chlorthalidone (Hygroton) 25 mg PO DAILY [facility] Last Admin: 01/21/17 10:00 Dose: 25 mg Clonidine HCl (Catapres) 0.3 mg PO TID [facility] Last Admin: 01/21/17 13:19 Dose: 0.3 mg Epoetin Tom (Procrit) 6,000 unit IV TTS [facility] Last Admin: 01/19/17 10:00 Dose: Not Given Heparin Sodium (Porcine) (Heparin) 5,000 units SC Q12 [facility] Last Admin: 01/21/17 09:58 Dose: 5,000 units Hydralazine HCl (Apresoline) 100 mg PO Q8H [facility] Last Admin: 01/21/17 13:19 Dose: 100 mg Hydromorphone HCl (Dilaudid) 1 mg IVP Q6H PRN PRN Reason: Pain, severe (8-10) Last Admin: 01/21/17 14:11 Dose: 1 mg Insulin Glargine (Lantus) 7 unit SC HS [facility] Last Admin: 01/20/17 22:11 Dose: 7 units Insulin Human Regular (Novolin R) 0 unit SC ACHS [facility] PRN Reason: Protocol Last Admin: 01/21/17 13:10 Dose: 2 unit Insulin Human Regular (Novolin R) 4 unit SC TIDCC [facility] Last Admin: 01/21/17 13:09 Dose: 4 unit Pantoprazole Sodium (Protonix Inj) 40 mg IVP DAILY [facility] Last Admin: 01/21/17 09:58 Dose: 40 mg Sertraline HCl (Zoloft) 50 mg PO DAILY [facility] Last Admin: 01/21/17 09:59 Dose: 50 mg - Labs Labs: 01/19/17 09:37 01/19/17 09:37 - Constitutional Appears: Non-toxic - Head Exam Head Exam: NORMAL INSPECTION - ENT Exam ENT Exam: Mucous Membranes Moist - Neck Exam Neck Exam: Full ROM - Respiratory Exam Respiratory Exam: Clear to Ausculation Bilateral - Cardiovascular Exam Cardiovascular Exam: REGULAR RHYTHM - GI/Abdominal Exam GI & Abdominal Exam: Normal Bowel Sounds - Exam Bimanual exam: NORMAL BIMANUAL EXAM Assessment and Plan - Assessment and Plan (Free Text) Assessment: uncontroled dmid improving sob improving ESRF CAD CHF Plan: MY D/C IN AM AFTER DIALYSIS
[2017-01-21] MEDS ORDERED: (Lantus) Insulin Glargine, Recombinant SC SCH (22:00)
--- NOTE | 2017-01-21 22:06 | CP.PCM.PN ---
Subjective - Date & Time of Evaluation Date of Evaluation: 01/21/17 Time of Evaluation: 22:02 - Subjective Subjective: uncontrolled IDDM Objective - Vital Signs/Intake and Output Vital Signs (last 24 hours): Temp Pulse Resp BP Pulse Ox 98.5 F 50 L 20 98/63 L 98 01/21/17 16:15 01/21/17 16:15 01/21/17 16:15 01/21/17 18:45 01/21/17 16:15 - Medications Medications: Current Medications Amlodipine Besylate (Norvasc) 10 mg PO DAILY [facility] Last Admin: 01/21/17 09:59 Dose: 10 mg Carvedilol (Coreg) 12.5 mg PO BID [facility] Last Admin: 01/21/17 18:45 Dose: Not Given Chlorthalidone (Hygroton) 25 mg PO DAILY [facility] Last Admin: 01/21/17 10:00 Dose: 25 mg Clonidine HCl (Catapres) 0.3 mg PO TID [facility] Last Admin: 01/21/17 18:45 Dose: Not Given Epoetin Tom (Procrit) 6,000 unit IV TTS [facility] Last Admin: 01/19/17 10:00 Dose: Not Given Heparin Sodium (Porcine) (Heparin) 5,000 units SC Q12 [facility] Hydralazine HCl (Apresoline) 100 mg PO Q8H [facility] Last Admin: 01/21/17 21:25 Dose: Not Given Hydromorphone HCl (Dilaudid) 1 mg IVP Q6H PRN PRN Reason: Pain, severe (8-10) Last Admin: 01/21/17 20:41 Dose: 1 mg Insulin Glargine (Lantus) 9 unit SC HS [facility] Insulin Human Regular (Novolin R) 0 unit SC ACHS [facility] PRN Reason: Protocol Last Admin: 01/21/17 17:30 Dose: 2 unit Insulin Human Regular (Novolin R) 4 unit SC TIDCC [facility] Last Admin: 01/21/17 19:18 Dose: 4 unit Pantoprazole Sodium (Protonix Inj) 40 mg IVP DAILY [facility] Last Admin: 01/21/17 09:58 Dose: 40 mg Sertraline HCl (Zoloft) 50 mg PO DAILY [facility] Last Admin: 01/21/17 09:59 Dose: 50 mg - Labs Labs: 01/19/17 09:37 01/19/17 09:37 Assessment and Plan (1) Hypoglycemia due to insulin Assessment & Plan: Endocrine consult for hypoglycemia /uncontrolled IDDM Mr. Saha pt. is 36 y/o admitted to for chest pain , found with hypoglycemia @ 40 's pt. known to endocrine with uncontrolled IDDM /brittle ,complicated with ESRD on HD , retinopathy /legally blind , CAD s/p CABG , PVD s/p bilateral BKA , neuropathy , gastroparesis . on Novolog medium dose coverage , novolog 8 units tid also with h/o hypothyroidism off synthroid blood glucose log : bg 20o's , appetite improving , no hypoglycemia Allergy multiple as per record review Past medical history : as above Past surgical history : as above Psychiatry history : (+) psychiatry disorder Social history : denies smoking , ETOH use , illicit drug use Family history : mother & sister with diabetes ROS: Constitutional: denies fever ,tiredness/weakness .HEENT: denies earache, change in voice .Respiratory: denies cough, sob . CVS :no chest pain, no palpitations . Abdomen : no abdominal pain, s/p nausea /vomiting , no change bowel movement . 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
[2017-01-22] MEDS: HYDROmorphone 1 mg/ml ISec IVP PRN ×3 (02:56→17:06)
[2017-01-22] MEDS: (Novolin R) Insulin Human Regular 100 units/ml vial SC SCH ×5 (07:55→17:11)
[2017-01-22 09:46] LABS: MEAN CELL VOLUME 88.2 fL (80.0-94.0); MEAN CORPUSCULAR HGB CONC 31.7 g/dL (33.0-37.0); RED CELL DISTRIBUTION WIDTH 18.1 % (11.5-14.5); WHITE BLOOD COUNT 10.3 K/uL (4.8-10.8)
[2017-01-22 09:53] LABS: POTASSIUM 4.1 mmol/L (3.6-5.2)
[2017-01-22 09:57] LABS: CALCIUM 8.2 mg/dl (8.6-10.4)
--- NOTE | 2017-01-22 11:43 | CP.PCM.PN ---
Subjective - Date & Time of Evaluation Date of Evaluation: 01/22/17 Time of Evaluation: 11:41 - Subjective Subjective: pt had dialysis today vss bp controled no vomiting no chest pain bs impruved Objective - Vital Signs/Intake and Output Vital Signs (last 24 hours): Temp Pulse Resp BP Pulse Ox 98.6 F 59 L 16 93/51 L 100 01/22/17 09:20 01/22/17 09:20 01/22/17 09:20 01/22/17 11:00 01/22/17 09:20 Intake and Output: 01/22/17 01/22/17 06:59 18:59 Intake Total 300 Balance 300 - Medications Medications: Current Medications Amlodipine Besylate (Norvasc) 10 mg PO DAILY [facility] Last Admin: 01/22/17 09:58 Dose: Not Given Carvedilol (Coreg) 12.5 mg PO BID [facility] Last Admin: 01/22/17 09:57 Dose: Not Given Chlorthalidone (Hygroton) 25 mg PO DAILY [facility] Last Admin: 01/22/17 09:57 Dose: Not Given Clonidine HCl (Catapres) 0.3 mg PO TID [facility] Last Admin: 01/22/17 09:57 Dose: Not Given Epoetin Tom (Procrit) 6,000 unit IV TTS [facility] Last Admin: 01/19/17 10:00 Dose: Not Given Heparin Sodium (Porcine) (Heparin) 5,000 units SC Q12 [facility] Last Admin: 01/22/17 09:57 Dose: Not Given Hydralazine HCl (Apresoline) 100 mg PO Q8H [facility] Last Admin: 01/22/17 06:10 Dose: 100 mg Hydromorphone HCl (Dilaudid) 1 mg IVP Q6H PRN PRN Reason: Pain, severe (8-10) Last Admin: 01/22/17 08:57 Dose: 1 mg Insulin Glargine (Lantus) 9 unit SC HS [facility] Last Admin: 01/21/17 22:34 Dose: 9 units Insulin Human Regular (Novolin R) 0 unit SC ACHS [facility] PRN Reason: Protocol Last Admin: 01/22/17 07:56 Dose: 2 unit Insulin Human Regular (Novolin R) 4 unit SC TIDCC [facility] Last Admin: 01/22/17 07:55 Dose: 4 unit Pantoprazole Sodium (Protonix Inj) 40 mg IVP DAILY [facility] Last Admin: 01/22/17 09:58 Dose: Not Given Sertraline HCl (Zoloft) 50 mg PO DAILY [facility] Last Admin: 01/22/17 09:58 Dose: Not Given - Labs Labs: 01/22/17 09:39 01/22/17 09:39 - Constitutional Appears: Non-toxic - Head Exam Head Exam: NORMAL INSPECTION - Eye Exam Additional comments: legaly blind - ENT Exam ENT Exam: Mucous Membranes Moist - Neck Exam Neck Exam: Full ROM - Respiratory Exam Respiratory Exam: Clear to Ausculation Bilateral - Cardiovascular Exam Cardiovascular Exam: REGULAR RHYTHM - GI/Abdominal Exam GI & Abdominal Exam: Normal Bowel Sounds - Rectal Exam Rectal Exam: NORMAL INSPECTION - Exam Additional comments: ambiguas genetalia - Extremities Exam Additional comments: bka - Back Exam Back Exam: vertebral tenderness - Neurological Exam Neurological Exam: Oriented x3 - Psychiatric Exam Psychiatric exam: Normal Affect - Skin Skin Exam: Normal Color, Pallor Assessment and Plan - Assessment and Plan (Free Text) Assessment: chest pain imroved CAD CHF DM ESRF VOMING S/P AKA
[2017-01-22] MEDS: Epoetin Alfa Dialysis 3000 UNIT/ML Inj IV SCH (12:14)
--- NOTE | 2017-01-22 14:40 | CP.PCM.PN ---
Subjective - Date & Time of Evaluation Date of Evaluation: 01/22/17 Time of Evaluation: 14:38 - Subjective Subjective: no significant changes reported overnight Vital signs stable Objective - Vital Signs/Intake and Output Vital Signs (last 24 hours): Temp Pulse Resp BP Pulse Ox 97.7 F 64 16 140/68 100 01/22/17 12:26 01/22/17 13:15 01/22/17 12:26 01/22/17 13:15 01/22/17 12:26 Intake and Output: 01/22/17 01/22/17 06:59 18:59 Intake Total 300 Balance 300 - Medications Medications: Current Medications Amlodipine Besylate (Norvasc) 10 mg PO DAILY [facility] Last Admin: 01/22/17 13:37 Dose: 10 mg Carvedilol (Coreg) 12.5 mg PO BID [facility] Last Admin: 01/22/17 09:57 Dose: Not Given Chlorthalidone (Hygroton) 25 mg PO DAILY [facility] Last Admin: 01/22/17 13:37 Dose: 25 mg Clonidine HCl (Catapres) 0.3 mg PO TID [facility] Last Admin: 01/22/17 13:37 Dose: 0.3 mg Epoetin Tom (Procrit) 6,000 unit IV TTS [facility] Last Admin: 01/22/17 12:14 Dose: 6,000 unit Heparin Sodium (Porcine) (Heparin) 5,000 units SC Q12 [facility] Last Admin: 01/22/17 09:57 Dose: Not Given Hydralazine HCl (Apresoline) 100 mg PO Q8H [facility] Last Admin: 01/22/17 13:37 Dose: 100 mg Hydromorphone HCl (Dilaudid) 1 mg IVP Q6H PRN PRN Reason: Pain, severe (8-10) Last Admin: 01/22/17 08:57 Dose: 1 mg Insulin Glargine (Lantus) 9 unit SC HS [facility] Last Admin: 01/21/17 22:34 Dose: 9 units Insulin Human Regular (Novolin R) 0 unit SC ACHS [facility] PRN Reason: Protocol Last Admin: 01/22/17 13:21 Dose: Not Given Insulin Human Regular (Novolin R) 4 unit SC TIDCC [facility] Last Admin: 01/22/17 13:32 Dose: Not Given Pantoprazole Sodium (Protonix Inj) 40 mg IVP DAILY [facility] Last Admin: 01/22/17 13:36 Dose: 40 mg Sertraline HCl (Zoloft) 50 mg PO DAILY [facility] Last Admin: 01/22/17 13:38 Dose: 50 mg - Labs Labs: 01/22/17 09:39 01/22/17 09:39 - Constitutional Appears: No Acute Distress - ENT Exam ENT Exam: Mucous Membranes Moist - Respiratory Exam Respiratory Exam: NORMAL BREATHING PATTERN. absent: Chest Wall Tenderness - GI/Abdominal Exam GI & Abdominal Exam: absent: Guarding - Extremities Exam Extremities Exam: absent: Calf Tenderness - Back Exam Back Exam: absent: CVA tenderness (L), CVA tenderness (R) - Neurological Exam Neurological Exam: Alert Assessment and Plan (1) ESRD (end stage renal disease) on dialysis Assessment & Plan: chronic end stage renal disease on maintenance hemodialysis. Patient seen on dialysis Patient is tolerating okay Continue the same management continue monitoring Status: Chronic
[2017-01-22 16:15] VITALS: BP 121/51; PULSE 56; RESP 18; TEMP 98.6; O2SAT 96
--- NOTE | 2017-01-22 17:55 | CP.PCM.PN ---
Subjective - Date & Time of Evaluation Date of Evaluation: 01/22/17 Time of Evaluation: 11:00 - Subjective Subjective: awake, alert, in dialysis. No acute distress or vomiting noted. Objective - Vital Signs/Intake and Output Vital Signs (last 24 hours): Temp Pulse Resp BP Pulse Ox 98.6 F 56 L 18 121/51 L 96 01/22/17 16:00 01/22/17 16:00 01/22/17 16:00 01/22/17 16:00 01/22/17 16:00 Intake and Output: 01/22/17 01/22/17 06:59 18:59 Intake Total 300 Balance 300 - Medications Medications: Current Medications Amlodipine Besylate (Norvasc) 10 mg PO DAILY [facility] Last Admin: 01/22/17 13:37 Dose: 10 mg Carvedilol (Coreg) 12.5 mg PO BID [facility] Last Admin: 01/22/17 09:57 Dose: Not Given Chlorthalidone (Hygroton) 25 mg PO DAILY [facility] Last Admin: 01/22/17 13:37 Dose: 25 mg Clonidine HCl (Catapres) 0.3 mg PO TID [facility] Last Admin: 01/22/17 13:37 Dose: 0.3 mg Epoetin Tom (Procrit) 6,000 unit IV TTS [facility] Last Admin: 01/22/17 12:14 Dose: 6,000 unit Heparin Sodium (Porcine) (Heparin) 5,000 units SC Q12 [facility] Last Admin: 01/22/17 09:57 Dose: Not Given Hydralazine HCl (Apresoline) 100 mg PO Q8H [facility] Last Admin: 01/22/17 13:37 Dose: 100 mg Insulin Glargine (Lantus) 9 unit SC HS [facility] Last Admin: 01/21/17 22:34 Dose: 9 units Insulin Human Regular (Novolin R) 0 unit SC ACHS [facility] PRN Reason: Protocol Last Admin: 01/22/17 17:11 Dose: 1 unit Insulin Human Regular (Novolin R) 4 unit SC TIDCC [facility] Last Admin: 01/22/17 13:32 Dose: Not Given Pantoprazole Sodium (Protonix Inj) 40 mg IVP DAILY [facility] Last Admin: 01/22/17 13:36 Dose: 40 mg Sertraline HCl (Zoloft) 50 mg PO DAILY [facility] Last Admin: 01/22/17 13:38 Dose: 50 mg - Labs Labs: 01/22/17 09:39 01/22/17 09:39 Assessment and Plan - Assessment and Plan (Free Text) Assessment: Patient is seen and examined, alert,awake, no sob or chest pains. Plan for discharge home after HD today as per DR Li. Will continue with present meds.
--- NOTE | 2017-01-22 17:58 | PCM.HF ---
Heart Failure Core Measure - Heart Failure Ejection Fraction: 40 % or Greater (LVEF >48%) RAÚL Inhibitor Prescribed: No Contraindication/Reason for not providing: ESRD Beta-Andrew Prescribed: Carvedilol Angiotensin II Receptor Andrew Prescribed: No Contraindication/Reason for not providing: ESRD AnticoagulationTherapy for Atrial Fibrillation/Atrialflutter: Yes Aldosterone Antagonist Prescribed: No Contraindication/Reason for not providing: ESRD Hydralazine Nitrate Prescribed: Yes Implantable Cardioverter Defibrillator Therapy: No Contraindication/Reason for not providing: EF > 40% Cardiac Resynchronization Therapy Prescribed: No Contraindication/Reason for not providing: EL >40% - Follow up Will be discharged to: Home Follow Up Date (must be within 7 days from discharge): 01/24/17 Follow Up Time: 09:00
--- NOTE | 2017-01-30 12:34 | DS ---
The patient came in with chest pain, vomiting and end-stage renal failure, COPD, diabetes. ____ admi ssion, he was seen in the Emergency Room, evaluated and admitted. His lab was negative for an acute ME. There were ____ ST changes in ____ EKGs. His sugar was high, but he was monitored and controlle d with insulin. His hemoglobin was 9.5 and hematocrit 30. He was seen by [facility] consultant Dr. Galindo and he was on dialysis. He was also seen by Dr. Escobar, cardiology consult, because he is status post co ronary bypass and he was controlled for his blood pressure. He was stable and feeling better and he was discharged home with home health care on 01/22/17. FINAL DIAGNOSES: Acute chest pain, status post coronary artery disease, chronic obstructive pulmonar y disease, end-stage renal failure, diabetes mellitus, insulin-dependent, uncontrolled; ____ hyperten liane, anemia. Sybil Li MD cc: [id number] TT: 01/30/2017 12:34:19 sn
== END 2017-01-22 20:35 | disposition home or self-care (01) | DRG 300 ==
LOC: C.ER 17:25 → C.9E 19:15 → C.6T 23:43 → OBSVTOIN 01-17 15:10
PROVIDERS: ADMIT Internal Medicine; ATTEND Internal Medicine
PROC: 5A1D60Z (ICD-10-PCS; principal; 2017-01-17)
DX: E16.0 Drug-induced hypoglycemia without coma (principal); I13.2 Hypertensive heart and chronic kidney disease with heart failure and with stage 5 chronic kidney disease, or end stage renal disease; N18.6 End stage renal disease; K31.84 Gastroparesis; E11.65 Type 2 diabetes mellitus with hyperglycemia; G30.9 Alzheimer's disease, unspecified; I48.91 Unspecified atrial fibrillation; F02.80 Dementia in other diseases classified elsewhere, unspecified severity, without behavioral disturbance, psychotic disturbance, mood disturbance, and anxiety; E11.40 Type 2 diabetes mellitus with diabetic neuropathy, unspecified; I50.9 Heart failure, unspecified; E11.319 Type 2 diabetes mellitus with unspecified diabetic retinopathy without macular edema; J44.9 Chronic obstructive pulmonary disease, unspecified; E11.22 Type 2 diabetes mellitus with diabetic chronic kidney disease; I25.10 Atherosclerotic heart disease of native coronary artery without angina pectoris; I73.9 Peripheral vascular disease, unspecified; Z95.1 Presence of aortocoronary bypass graft; Z91.11 Patient's noncompliance with dietary regimen; H54.8 Legal blindness, as defined in USA; E78.00 Pure hypercholesterolemia, unspecified; J45.909 Unspecified asthma, uncomplicated; T38.3X5A Adverse effect of insulin and oral hypoglycemic [antidiabetic] drugs, initial encounter; E03.9 Hypothyroidism, unspecified; D64.9 Anemia, unspecified; Z86.73 Personal history of transient ischemic attack (TIA), and cerebral infarction without residual deficits; Z79.4 Long term (current) use of insulin; Z91.19 Patient's noncompliance with other medical treatment and regimen; Z89.512 Acquired absence of left leg below knee; Z89.511 Acquired absence of right leg below knee

== ENCOUNTER 2017-01-29 12:37 | Observation (INO) | payer OTHER ==
[2017-01-29 12:38] VITALS: PULSE 66; BMI 20.7
--- NOTE | 2017-01-29 14:23 | RAD ---
HISTORY: SOB COMPARISON: Chest x-ray performed 01/15/17 TECHNIQUE: Chest, one view. FINDINGS: Right IJ approach dialysis catheter. LUNGS: Pulmonary venous congestion. No focal consolidation. Please note that chest x-ray has limited sensitivity for the detection of pulmonary masses. PLEURA: Probable trace bilateral pleural effusions. No definite pneumothorax . CARDIOVASCULAR: Median sternotomy wires. Cardiomegaly. OSSEOUS STRUCTURES: Degenerative changes. Osseous demineralization. High-riding bilateral humeral heads may be seen in setting of chronic rotator cuff injury. VISUALIZED UPPER ABDOMEN: Unremarkable. OTHER FINDINGS: None. IMPRESSION: Cardiomegaly. Mild pulmonary venous congestion. Probable trace bilateral pleural effusions. Constellation of findings compatible with mild CHF. Right IJ approach dialysis catheter.
--- NOTE | 2017-01-29 14:44 | C.PDOC ---
History Of Present Illness 36 year old patient is brought to the ED by ambulance complaining of subjective fever, chills and shaking since yesterday. Denies chest pain. He was here as inpatient from January 16 to . Patient was supposed to go to dialysis today, but was referred here instead. Patient is on an extensive narcotic regimen. Patient denies shortness of breath, nausea, or vomiting. Time Seen by Provider: 01/29/17 13:05 Chief Complaint (Nursing): Flu-like Symptoms History Per: Patient History/Exam Limitations: no limitations Onset/Duration Of Symptoms: Days (yesterday) Current Symptoms Are (Timing): Still Present Associated Symptoms: Fever, Chills Severity: Mild Pain Scale Rating Of: 3 Recent travel outside of the [place]: No Additional History Per: EMS Past Medical History Reviewed: Historical Data, Nursing Documentation, Vital Signs Vital Signs: Last Vital Signs Temp 99 F 01/29/17 15:00 Pulse 93 H 01/29/17 16:00 Resp 17 01/29/17 16:00 BP 185/95 H 01/29/17 16:00 Pulse Ox 98 01/29/17 16:00 - Medical History PMH: Alzheimer's Disease, Anemia, Anxiety, Arthritis, Asthma, Atrial Fibrillation, Bronchitis, CAD, Cardia Arrhythmia, CHF, COPD, CVA, Depression, Diabetes, Deep Vein Thrombosis, Gastrointestinal Ulcer, Gall Bladder Disease, HTN, Hypercholesterolemia, Hyperthyroidism, Hypothyroidism, End Stage Renal Disease (on dialysis Sat//Sat.), Chronic Kidney Disease, Seizures Surgical History: CABG (12/2009), Cholecystectomy (2011), Coronary Stent (X3) - [facility] Procedures ABDOMINAL WALL SINOGRAM (12/31/13) C.A.T. SCAN OF ABDOMEN (10/31/13) CENTRAL VENOUS CATHETER PLACEMENT WITH GUIDANCE (02/10/15) DILATE R ANT TIB ART W DRUG-ELUT INTRALUM, PERC (08/12/15) DILATION OF LEFT FEMORAL ARTERY, PERCUTANEOUS APPROACH (07/04/16) DILATION OF RIGHT FEMORAL ARTERY, PERCUTANEOUS APPROACH (08/12/15) DILATION OF RIGHT POPLITEAL ARTERY, PERCUTANEOUS APPROACH (08/12/15) DX ULTRASOUND-HEART (01/05/13) ENTERAL INFUSION OF CONCENTRATED NUT. SUBSTANCES (06/28/13) EXCIS DEBRIDE OF WOUND, INFECT, OR BURN (08/03/14) EXTIRPATION OF MATTER FROM L FEM ART, PERC APPROACH (07/04/16) EXTIRPATION OF MATTER FROM R FEM ART, PERC APPROACH (08/12/15) EXTIRPATION OF MATTER FROM R POPL ART, PERC APPROACH (08/12/15) FLUOROSCOPY OF L LOW EXTREM ART USING L OSM CONTRAST (08/12/15) FLUOROSCOPY OF R LOW EXTREM ART USING L OSM CONTRAST (08/12/15) FREE SKIN GRAFT NEC (08/03/14) HEAD SOFT TISS X-RAY NEC (04/15/13) HEMODIALYSIS (04/28/15) INCIS W REM OF FORIEGN BODY OR DEV FROM SKIN & SUBCUT TISSUE (08/08/13) INSERTION OF INFUSION DEV INTO R SUBCLAV VEIN, PERC APPROACH (01/19/16) INTRODUCE OF OTH THROMBOLYTIC INTO PERIPH ART, PERC APPROACH (08/12/15) LAPAROSCOPIC CHOLECYSTECTOMY (09/21/13) LOC EXC LES METATAR/TAR (06/01/14) PACKED CELL TRANSFUSION (06/01/14) PERCUTAN LIVER ASPIRAT (12/31/13) PERFORMANCE OF URINARY FILTRATION, MULTIPLE (01/17/17) PERFORMANCE OF URINARY FILTRATION, SINGLE (12/18/16) SKIN & SUBQ INCISION NEC (10/24/14) TETANUS TOXOID ADMINIST (06/13/14) VENOUS CATHETERIZATION FOR RENAL DIALYSIS (08/08/13) VENOUS CATHETERIZATION NEC (04/30/13) Family History: States: Unknown Family Hx - Social History Hx Tobacco Use: No Hx Alcohol Use: No Hx Substance Use: No - Immunization History Hx Tetanus Toxoid Vaccination: Yes Hx Influenza Vaccination: Yes Hx Pneumococcal Vaccination: Yes Review Of Systems Except As Marked, All Systems Reviewed And Found Negative. Constitutional: Positive for: Fever (subjective), Chills, Other (shaking) Respiratory: Negative for: Shortness of Breath Gastrointestinal: Negative for: Nausea, Vomiting Physical Exam - Physical Exam Appears: Non-toxic, No Acute Distress, Other (asleep) Skin: Warm, Dry Head: Atraumatic, Normacephalic Eye(s): bilateral: Other (blind) Neck: Normal ROM, Supple Chest: Symmetrical, Other (mid-sternotomy scar) Cardiovascular: Rhythm Regular Respiratory: Normal Breath Sounds, No Rales, No Rhonchi, No Wheezing Extremity: Other (bilateral BKA) Neurological/Psych: Oriented x3 ED Course And Treatment - Laboratory Results Result Diagrams: 01/29/17 15:43 01/29/17 15:09 Lab Interpretation: Abnormal (trop neg, labs c/w ESRD on HD (pending today)) ECG: Interpreted By Me ECG Rhythm: Sinus Rhythm (87) ECG Interpretation: Normal Rate From EC O2 Sat by Pulse Oximetry: 97 (room air ) Pulse Ox Interpretation: Normal - Radiology CXR: Interpreted by Me CXR Interpretation: Yes: Heart Size, Other (mild CHF) Reevaluation Time: 15:00 Reassessment Condition: Improved - Physician Consult Information Outcome Of Conversation: 1320: d/w Dr. Galindo- pt's Bacteriologist Food- will order HD for today. 1500: d/w Dr. Sybil Li- PMD- ok to Tele obs. Medical Decision Making Medical Decision Making: uncontrolled HTN missed HD this AM asleep on eval and re-eval, no sig pain noted. no + trop as during prior Adm 01/16- Direct to HD per Dr Espinosa- Bacteriologist Food. Disposition Doctor Will See Patient In The: Hospital Counseled Patient/Family Regarding: Studies Performed, Diagnosis - Disposition Disposition: HOSPITALIZED Disposition Time: 15:00 Condition: GOOD - Clinical Impression Clinical Impression: Hyperkalemia, diminished renal excretion, ESRD (end stage renal disease), Hyperglycemia - Scribe Statement The provider has reviewed the documentation as recorded by the Scribe Deana Tavera Provider Attestation: All medical record entries made by the Scribe were at my direction and personally dictated by me. I have reviewed the chart and agree that the record accurately reflects my personal performance of the history, physical exam, medical decision making, and the department course for this patient. I have also personally directed, reviewed, and agree with the discharge instructions and disposition.
[2017-01-29 15:38] LABS: ALB/GLOB RATIO 1.1 (1.0-2.1); ALKALINE PHOSPHATASE 150 U/L (38-126); AST/SGOT 39 U/L (17-59); BILIRUBIN,TOTAL 1.2 mg/dL (0.2-1.3); BLOOD UREA NITROGEN 72 mg/dL (9-20); CALCIUM 8.8 mg/dl (8.6-10.4); CARBON DIOXIDE 22 mmol/L (22-30); CHLORIDE 87 mmol/L (98-107); GFR AFRICAN-AMERICAN 10; SODIUM 128 mmol/L (132-148); TOTAL PROTEIN 7.7 g/dL (6.3-8.3)
[2017-01-29 15:49] LABS: BASO # 0.1 K/uL (0.0-0.2); BASO % 0.7 % (0.0-2.0); EOS # 0.2 K/uL (0.0-0.7); EOS % 2.3 % (0.0-4.0); HEMATOCRIT 29.6 % (35.0-51.0); LYMPH # 1.4 K/uL (1.0-4.3); LYMPH % 13.4 % (20.0-40.0); MEAN CELL VOLUME 87.7 fL (80.0-94.0); MEAN CORPUSCULAR HEMOGLOBIN 28.6 pg (27.0-31.0); MEAN CORPUSCULAR HGB CONC 32.6 g/dL (33.0-37.0); MEAN PLATELET VOLUME 9.1 fL (7.2-11.7); MONO # 0.8 K/uL (0.0-0.8); MONO % 7.5 % (0.0-10.0); RED CELL DISTRIBUTION WIDTH 17.8 % (11.5-14.5); WHITE BLOOD COUNT 10.8 K/uL (4.8-10.8)
[2017-01-29 16:05] LABS: ALT/SGPT < 6 U/L (21-72)
[2017-01-29 16:06] LABS: GLUCOSE,RANDOM 473 mg/dL (75-110); POTASSIUM 6.4 mmol/L (3.6-5.2)
[2017-01-29] MEDS ORDERED: HYDROmorphone 1 mg/ml ISec IVP ONE (17:00)
--- NOTE | 2017-01-29 17:40 | CP.PCM.CON ---
History of Present Illness - History of Present Illness History of Present Illness: this pt. admitted from ER with multiple complaints as usully does chest pain ,wenaomi find K is high he missed his dialysis today known with multiple admission seeking pain meds pmh and surgery cad s/p cabbage pvd foot infection ,amputation Review of Systems - Constitutional Constitutional: As Per HPI, Chills, Headache, Weakness - Cardiovascular Cardiovascular: As Per HPI, Chest Pain, Dyspnea on Exertion - Respiratory Respiratory: Dyspnea - Gastrointestinal Gastrointestinal: absent: Abdominal Pain, Diarrhea, Nausea - Genitourinary Genitourinary: Nocturia - Musculoskeletal Musculoskeletal: As Per HPI, Muscle Weakness - Neurological Neurological: As Per HPI, Abnormal Gait - Psychiatric Psychiatric: As Per HPI Past Patient History - Infectious Disease Hx of Infectious Diseases: None - Tetanus Immunizations Tetanus Immunization: >10 years Ago - Past Medical History & Family History Past Medical History?: Yes - Past Social History Smoking Status: Never Smoked - CARDIAC Hx Atrial Fibrillation: Yes Hx Cardia Arrhythmia: Yes Hx Congestive Heart Failure: Yes Hx Hypercholesterolemia: Yes Hx Hypertension: Yes - PULMONARY Hx Asthma: Yes Hx Bronchitis: Yes Hx Chronic Obstructive Pulmonary Disease (COPD): Yes - NEUROLOGICAL Hx Alzheimer's Disease: Yes Hx Seizures: Yes - HEENT Hx HEENT Problems: Yes Hx Blind: Yes (legally blind) Hx Cataracts: Yes - RENAL Hx Chronic Kidney Disease: Yes - ENDOCRINE/METABOLIC Hx Hyperthyroidism: Yes Hx Hypothyroidism: Yes - HEMATOLOGICAL/ONCOLOGICAL Hx Anemia: Yes - INTEGUMENTARY Hx Dermatological Problems: No - MUSCULOSKELETAL/RHEUMATOLOGICAL Hx Arthritis: Yes - GASTROINTESTINAL Hx Gall Bladder Disease: Yes - GENITOURINARY/GYNECOLOGICAL Hx Sexually Transmitted Disorders: No - PSYCHIATRIC Hx Anxiety: Yes Hx Depression: Yes Hx Substance Use: No - SURGICAL HISTORY Hx Cholecystectomy: Yes (2011) 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/2009) Hx Coronary Stent: Yes (X3) - ANESTHESIA Hx Anesthesia: Yes Hx Anesthesia Reactions: No Hx Malignant Hyperthermia: No Meds Allergies/Adverse Reactions: Allergies Allergy/AdvReac Type Severity Reaction Status Date / Time acetaminophen [From Percocet] Allergy RASH Verified 01/29/17 12:43 atenolol Allergy RASH Verified 01/29/17 12:43 digoxin Allergy RASH Verified 01/29/17 12:43 milk Allergy ITCHING Verified 01/29/17 12:43 morphine Allergy ITCHING Verified 01/29/17 12:43 oxycodone HCl [From Percocet] Allergy RASH Verified 01/29/17 12:43 - Medications Medications: Current Medications Amlodipine Besylate (Norvasc) 10 mg PO DAILY [facility] Carvedilol (Coreg) 25 mg PO BID [facility] Clopidogrel Bisulfate (Plavix) 75 mg PO DAILY [facility] Docusate Sodium (Colace) 100 mg PO PRN PRN PRN Reason: Constipation Heparin Sodium (Porcine) (Heparin) 4,300 units IVP TuThSa [facility] Stop: 02/02/17 17:31 Last Admin: 01/29/17 17:36 Dose: 4,300 units Home Med (Atorvastatin [Lipitor]) 20 mg PO DAILY [facility] Home Med (Eliquis) 5 mg PO BID [facility] Home Med (Gabapentin) 100 mg PO BID [facility] Home Med (Multivitamin/Iron/Folic Acid [Certavite-Antioxidant Tablet]) 1 each PO DAILY [facility] Home Med (Ranexa) 500 mg PO BID [facility] Hydralazine HCl (Apresoline) 100 mg PO Q8 [facility] Hydromorphone HCl (Dilaudid) 0.5 mg IVP Q4H PRN PRN Reason: Pain, severe (8-10) Insulin Glargine (Lantus) 18 unit SC HS [facility] Insulin Human Regular (Novolin R) 0 unit SC ACHS [facility] PRN Reason: Protocol Isosorbide Mononitrate (Imdur) 60 mg PO DAILY [facility] Levothyroxine Sodium (Synthroid) 50 mcg PO DAILY [facility] Pantoprazole Sodium (Protonix Ec Tab) 40 mg PO DAILY [facility] Sertraline HCl (Zoloft) 50 mg PO DAILY [facility] Physical Exam - Constitutional Appears: No Acute Distress - ENT Exam ENT Exam: Mucous Membranes Moist - Neck Exam Neck exam: Positive for: Normal Inspection - Respiratory Exam Respiratory Exam: NORMAL BREATHING PATTERN. absent: Chest Wall Tenderness - Cardiovascular Exam Cardiovascular Exam: absent: JVD, Rubs - GI/Abdominal Exam GI & Abdominal Exam: Normal Bowel Sounds, Soft - Extremities Exam Extremities exam: Negative for: calf tenderness - Back Exam Back exam: absent: CVA tenderness (L), CVA tenderness (R) - Neurological Exam Neurological exam: Alert Results - Vital Signs Recent Vital Signs: Last Vital Signs Temp 99 F 01/29/17 15:00 Pulse 88 01/29/17 17:00 Resp 15 01/29/17 17:00 BP 156/92 H 01/29/17 17:00 Pulse Ox 100 01/29/17 17:00 - Labs Result Diagrams: 01/29/17 15:43 01/29/17 15:09 Labs: Laboratory Results - last 24 hr 01/29/17 01/29/17 01/29/17 14:30 15:09 15:40 WBC RBC Hgb Hct MCV MCH MCHC RDW Plt Count MPV Neut % (Auto) Lymph % (Auto) [place] % (Auto) Eos % (Auto) Baso % (Auto) Neut # Lymph # [place] # Eos # Baso # Sodium 128 L Potassium 6.4 H* D Chloride 87 L Carbon Dioxide 22 Anion Gap 25 H BUN 72 H Creatinine 7.5 H* Est GFR ( Amer) 10 Est GFR (Non-Af Amer) 8 POC Glucose (mg/dL) 281 H Random Glucose 473 H* D Calcium 8.8 Total Bilirubin 1.2 AST 39 ALT < 6 L D Alkaline Phosphatase 150 H D Troponin I 0.0750 NT-Pro-B Natriuret Pep 36821 H Total Protein 7.7 Albumin 4.0 Globulin 3.7 Albumin/Globulin Ratio 1.1 Influenza Typ A,B (EIA) Negative for flu a/b 01/29/17 15:43 WBC 10.8 RBC 3.37 L Hgb 9.6 L Hct 29.6 L MCV 87.7 MCH 28.6 MCHC 32.6 L RDW 17.8 H Plt Count 182 MPV 9.1 Neut % (Auto) 76.1 H Lymph % (Auto) 13.4 L [place] % (Auto) 7.5 Eos % (Auto) 2.3 Baso % (Auto) 0.7 Neut # 8.2 H Lymph # 1.4 [place] # 0.8 Eos # 0.2 Baso # 0.1 Sodium Potassium Chloride Carbon Dioxide Anion Gap BUN Creatinine Est GFR ( Amer) Est GFR (Non-Af Amer) POC Glucose (mg/dL) Random Glucose Calcium Total Bilirubin AST ALT Alkaline Phosphatase Troponin I NT-Pro-B Natriuret Pep Total Protein Albumin Globulin Albumin/Globulin Ratio Influenza Typ A,B (EIA) Assessment & Plan (1) Hyperkalemia, diminished renal excretion Status: Acute (2) ESRD (end stage renal disease) Assessment and Plan: ESRD admitted with hyperkalemia and atypical chest pain HD called in JOHN ,spoke with intertype operator order given UF 2500 cc and K bath 1meq see order sheet Status: Chronic
[2017-01-29] MEDS ORDERED: ELIQUIS 5 MG PO SCH (18:00)
[2017-01-29] MEDS: Ranolazine 500 mg Extended Release Tablets PO SCH (18:53)
[2017-01-29] MEDS: (Novolin R) Insulin Human Regular 100 units/ml vial SC SCH (22:41)
[2017-01-29] MEDS: HYDROmorphone 0.5 mg/0.5 ml ISec IVP PRN (22:43)
[2017-01-29] MEDS: (Lantus) Insulin Glargine, Recombinant SC SCH (22:43)
[2017-01-30] MEDS: HYDROmorphone 0.5 mg/0.5 ml ISec IVP PRN ×4 (03:21→21:41)
[2017-01-30] MEDS: Levothyroxine 50 MCG TAB PO SCH (06:16)
[2017-01-30] MEDS: (Novolin R) Insulin Human Regular 100 units/ml vial SC SCH ×4 (10:00→21:40)
[2017-01-30] MEDS: Multivitamin With Minerals Tab PO SCH (11:00)
[2017-01-30] MEDS: Ranolazine 500 mg Extended Release Tablets PO SCH ×2 (11:00→17:50)
--- NOTE | 2017-01-30 11:13 | CP.PCM.HP ---
History of Present Illness - History of Present Illness History of Present Illness: vomiting admited missed his dialysis came to ed and admited bs hi k hi Present on Admission - Present on Admission Any Indicators Present on Admission: Yes Review of Systems - Review of Systems Systems not reviewed;Unavailable: Acuity of Condition - Constitutional Constitutional: Anorexia, Headache - EENT Eyes: As Per HPI Ears: As Per HPI Nose/Mouth/Throat: As Per HPI - Neurological Neurological: Headaches - Psychiatric Psychiatric: Depression - Endocrine Endocrine: Polydipsia, Polyphagia - Hematologic/Lymphatic Hematologic: As Per HPI Past Patient History - Infectious Disease Hx of Infectious Diseases: None - Tetanus Immunizations Tetanus Immunization: >10 years Ago - Past Medical History & Family History Past Medical History?: Yes - Past Social History Smoking Status: Never Smoked - CARDIAC Hx Atrial Fibrillation: Yes Hx Cardia Arrhythmia: Yes Hx Congestive Heart Failure: Yes Hx Hypercholesterolemia: Yes Hx Hypertension: Yes - PULMONARY Hx Asthma: Yes Hx Bronchitis: Yes Hx Chronic Obstructive Pulmonary Disease (COPD): Yes - NEUROLOGICAL Hx Alzheimer's Disease: Yes Hx Seizures: Yes - HEENT Hx HEENT Problems: Yes Hx Blind: Yes (legally blind) Hx Cataracts: Yes - RENAL Hx Chronic Kidney Disease: Yes Date of Last Dialysis Treatment: 01/29/17 - ENDOCRINE/METABOLIC Hx Hyperthyroidism: Yes Hx Hypothyroidism: Yes - HEMATOLOGICAL/ONCOLOGICAL Hx Anemia: Yes - INTEGUMENTARY Hx Dermatological Problems: No - MUSCULOSKELETAL/RHEUMATOLOGICAL Hx Arthritis: Yes Hx Falls: Yes - GASTROINTESTINAL Hx Gall Bladder Disease: Yes - GENITOURINARY/GYNECOLOGICAL Hx Sexually Transmitted Disorders: No - PSYCHIATRIC Hx Anxiety: Yes Hx Depression: Yes Hx Substance Use: No - SURGICAL HISTORY Hx Cholecystectomy: Yes (2011) 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/2009) Hx Coronary Stent: Yes (X3) - ANESTHESIA Hx Anesthesia: Yes Hx Anesthesia Reactions: No Hx Malignant Hyperthermia: No Has any member of the family had a problem w/ anesthesia?: No Meds Allergies/Adverse Reactions: Allergies Allergy/AdvReac Type Severity Reaction Status Date / Time acetaminophen [From Percocet] Allergy RASH Verified 01/29/17 12:43 atenolol Allergy RASH Verified 01/29/17 12:43 digoxin Allergy RASH Verified 01/29/17 12:43 milk Allergy ITCHING Verified 01/29/17 12:43 morphine Allergy ITCHING Verified 01/29/17 12:43 oxycodone HCl [From Percocet] Allergy RASH Verified 01/29/17 12:43 Physical Exam - Constitutional Appears: In Acute Distress - Head Exam Head Exam: ATRAUMATIC - Eye Exam Additional comments: legaly blind - ENT Exam ENT Exam: Normal Exam - Neck Exam Neck exam: Positive for: Full Rom - Respiratory Exam Respiratory Exam: Decreased Breath Sounds - Cardiovascular Exam Cardiovascular Exam: REGULAR RHYTHM - GI/Abdominal Exam GI & Abdominal Exam: Tenderness - Rectal Exam Rectal Exam: Deferred - Exam Additional comments: ambiguas genetalia - Extremities Exam Additional comments: s/p bilateral amputation - Back Exam Back exam: CVA tenderness (L) - Neurological Exam Neurological exam: Oriented x3 - Psychiatric Exam Psychiatric exam: Depressed - Skin Skin Exam: Normal Color, Pallor Results - Vital Signs Recent Vital Signs: Last Vital Signs Temp 97.9 F 01/30/17 07:00 Pulse 78 01/30/17 08:36 Resp 20 01/30/17 08:36 BP 189/74 H 01/30/17 08:36 Pulse Ox 98 01/30/17 08:36 - Labs Result Diagrams: 01/29/17 15:43 01/29/17 15:09 Labs: Laboratory Results - last 24 hr 01/29/17 01/29/17 01/29/17 14:30 15:09 15:40 WBC RBC Hgb Hct MCV MCH MCHC RDW Plt Count MPV Neut % (Auto) Lymph % (Auto) [place] % (Auto) Eos % (Auto) Baso % (Auto) Neut # Lymph # [place] # Eos # Baso # Sodium 128 L Potassium 6.4 H* D Chloride 87 L Carbon Dioxide 22 Anion Gap 25 H BUN 72 H Creatinine 7.5 H* Est GFR ( Amer) 10 Est GFR (Non-Af Amer) 8 POC Glucose (mg/dL) 281 H Random Glucose 473 H* D Calcium 8.8 Total Bilirubin 1.2 AST 39 ALT < 6 L D Alkaline Phosphatase 150 H D Troponin I 0.0750 NT-Pro-B Natriuret Pep 05964 H Total Protein 7.7 Albumin 4.0 Globulin 3.7 Albumin/Globulin Ratio 1.1 Influenza Typ A,B (EIA) Negative for flu a/b 01/29/17 01/29/17 01/30/17 15:43 21:25 02:13 WBC 10.8 RBC 3.37 L Hgb 9.6 L Hct 29.6 L MCV 87.7 MCH 28.6 MCHC 32.6 L RDW 17.8 H Plt Count 182 MPV 9.1 Neut % (Auto) 76.1 H Lymph % (Auto) 13.4 L [place] % (Auto) 7.5 Eos % (Auto) 2.3 Baso % (Auto) 0.7 Neut # 8.2 H Lymph # 1.4 [place] # 0.8 Eos # 0.2 Baso # 0.1 Sodium Potassium Chloride Carbon Dioxide Anion Gap BUN Creatinine Est GFR ( Amer) Est GFR (Non-Af Amer) POC Glucose (mg/dL) 334 H 129 H Random Glucose Calcium Total Bilirubin AST ALT Alkaline Phosphatase Troponin I NT-Pro-B Natriuret Pep Total Protein Albumin Globulin Albumin/Globulin Ratio Influenza Typ A,B (EIA) 01/30/17 06:38 WBC RBC Hgb Hct MCV MCH MCHC RDW Plt Count MPV Neut % (Auto) Lymph % (Auto) [place] % (Auto) Eos % (Auto) Baso % (Auto) Neut # Lymph # [place] # Eos # Baso # Sodium Potassium Chloride Carbon Dioxide Anion Gap BUN Creatinine Est GFR ( Amer) Est GFR (Non-Af Amer) POC Glucose (mg/dL) 272 H Random Glucose Calcium Total Bilirubin AST ALT Alkaline Phosphatase Troponin I NT-Pro-B Natriuret Pep Total Protein Albumin Globulin Albumin/Globulin Ratio Influenza Typ A,B (EIA) Assessment & Plan - Assessment and Plan (Free Text) Assessment: hyperkaleamia ESRF DMUNCONTROLED VOMITING DEPRESION CAD Plan: PER ORDERS - Date & Time Date: 01/30/17 Time: 11:18 Decision To Admit - Pt Status Changed To: Hospital Disposition Of: Inpatient - Admit Certification Admit to Inpatient:: After my assessment, the patient will require hospitalization for at least two midnights. This is because of the severity of symptoms shown, intensity of services needed, and/or the medical risk in this patient being treated as an outpatient. - InPatient: Physician Admission Certification:: admit pt need dialysis moniter bs repeat lab - . Bed Request Type: Telemetry
[2017-01-30 14:32] LABS: BASO % 0.5 % (0.0-2.0); EOS # 0.2 K/uL (0.0-0.7); EOS % 2.4 % (0.0-4.0); HEMATOCRIT 32.9 % (35.0-51.0); LYMPH # 0.9 K/uL (1.0-4.3); LYMPH % 9.9 % (20.0-40.0); MEAN CELL VOLUME 88.3 fL (80.0-94.0); MEAN CORPUSCULAR HEMOGLOBIN 28.4 pg (27.0-31.0); MEAN CORPUSCULAR HGB CONC 32.1 g/dL (33.0-37.0); MEAN PLATELET VOLUME 9.2 fL (7.2-11.7); MONO # 0.6 K/uL (0.0-0.8); MONO % 6.4 % (0.0-10.0); PLATELET COUNT 224 K/uL (130-400)
[2017-01-30 14:42] LABS: POTASSIUM 4.8 mmol/L (3.6-5.2)
[2017-01-30 14:45] LABS: ALB/GLOB RATIO 1.1 (1.0-2.1); BILIRUBIN,TOTAL 0.7 mg/dL (0.2-1.3); CALCIUM 9.2 mg/dl (8.6-10.4); TOTAL PROTEIN 8.2 g/dL (6.3-8.3)
[2017-01-30 15:19] LABS: TOTAL CELLS COUNTED 100
[2017-01-30 15:20] LABS: EOSINOPHIL 2 % (0-4); NEUTROPHIL 85 % (50-75)
--- NOTE | 2017-01-30 16:21 | CP.PCM.PN ---
Subjective - Date & Time of Evaluation Date of Evaluation: 01/30/17 Time of Evaluation: 04:30 - Subjective Subjective: No acute distress noted No CP Objective - Vital Signs/Intake and Output Vital Signs (last 24 hours): Temp Pulse Resp BP Pulse Ox 98.2 F 75 20 116/67 98 01/30/17 13:46 01/30/17 13:46 01/30/17 13:46 01/30/17 13:46 01/30/17 13:46 Intake and Output: 01/30/17 01/30/17 06:59 18:59 Intake Total 700 Balance 700 - Medications Medications: Current Medications Amlodipine Besylate (Norvasc) 10 mg PO DAILY [facility] Last Admin: 01/30/17 11:00 Dose: 10 mg Carvedilol (Coreg) 25 mg PO BID [facility] Last Admin: 01/30/17 11:00 Dose: 25 mg Clonidine HCl (Catapres) 0.3 mg PO Q8H [facility] Last Admin: 01/30/17 11:00 Dose: 0.3 mg Clopidogrel Bisulfate (Plavix) 75 mg PO DAILY [facility] Last Admin: 01/30/17 11:00 Dose: 75 mg Docusate Sodium (Colace) 100 mg PO PRN PRN PRN Reason: Constipation Famotidine (Pepcid) 20 mg PO BID [facility] Last Admin: 01/30/17 11:00 Dose: 20 mg Gabapentin (Neurontin) 100 mg PO BID [facility] Last Admin: 01/30/17 11:00 Dose: 100 mg Heparin Sodium (Porcine) (Heparin) 4,300 units IVP TuThSa [facility] Stop: 02/02/17 17:31 Last Admin: 01/29/17 17:36 Dose: 4,300 units Hydralazine HCl (Apresoline) 100 mg PO Q8 [facility] Last Admin: 01/30/17 15:54 Dose: Not Given Hydromorphone HCl (Dilaudid) 0.5 mg IVP Q4H PRN PRN Reason: Pain, severe (8-10) Last Admin: 01/30/17 13:47 Dose: 0.5 mg Insulin Glargine (Lantus) 18 unit SC HS [facility] Last Admin: 01/29/17 22:43 Dose: 18 units Insulin Human Regular (Novolin R) 0 unit SC ACHS [facility] PRN Reason: Protocol Last Admin: 01/30/17 13:16 Dose: 10 unit Isosorbide Mononitrate (Imdur) 60 mg PO DAILY [facility] Last Admin: 01/30/17 11:00 Dose: 60 mg Levothyroxine Sodium (Synthroid) 50 mcg PO DAILY@0630 [facility] Last Admin: 01/30/17 06:16 Dose: 50 mcg Multivitamins/Minerals (Therapeutic-M Tab) 1 tab PO DAILY [facility] Last Admin: 01/30/17 11:00 Dose: 1 tab Ondansetron HCl (Zofran Inj) 4 mg IVP Q6H PRN PRN Reason: Nausea/Vomiting Last Admin: 01/30/17 10:29 Dose: 4 mg Ranolazine (Ranexa) 500 mg PO BID [facility] Last Admin: 01/30/17 11:00 Dose: 500 mg Rosuvastatin Calcium (Crestor) 10 mg PO DAILY [facility] Last Admin: 01/30/17 11:00 Dose: 10 mg Sertraline HCl (Zoloft) 50 mg PO DAILY [facility] Last Admin: 01/30/17 11:00 Dose: 50 mg - Labs Labs: 01/30/17 14:13 01/30/17 14:13 - Respiratory Exam Additional comments: Lungs clear - Cardiovascular Exam Cardiovascular Exam: REGULAR RHYTHM - Extremities Exam Additional comments: B/L BKA Assessment and Plan - Assessment and Plan (Free Text) Assessment: ESRD Hyperkalemia corrected Volume overload CAD IDDM Plan: For dialysis tomorrow Monitor BP
[2017-01-30] MEDS ORDERED: ELIQUIS 5 MG PO SCH (18:00)
[2017-01-30] MEDS: (Lantus) Insulin Glargine, Recombinant SC SCH (21:40)
[2017-01-31] MEDS ORDERED: Dextrose 50% SYRINGE Inj (50 ml) ONE (01:01)
[2017-01-31] MEDS ORDERED: Dextrose 50% SYRINGE Inj (50 ml) IV STA (01:10)
[2017-01-31] MEDS: HYDROmorphone 0.5 mg/0.5 ml ISec IVP PRN ×3 (02:10→21:10)
[2017-01-31] MEDS: Levothyroxine 50 MCG TAB PO SCH (06:52)
[2017-01-31] MEDS: (Novolin R) Insulin Human Regular 100 units/ml vial SC SCH ×4 (09:02→21:33)
--- NOTE | 2017-01-31 09:45 | CP.PCM.CON ---
History of Present Illness - History of Present Illness History of Present Illness: 36 year old patient is brought to the ED by ambulance complaining of subjective fever, chills and shaking since 01/28/17. Denies chest pain. He was here as inpatient from January 16 to . Patient was supposed to go to dialysis 01/29/17 , but was referred here instead. Patient denies shortness of breath, nausea, or vomiting. Currenty getting HD: mildly sedated by arousable, and oriented. Offers no c/o CP , SOB or Fevers/chills/N/V/D pmhx is extensive for 1. CAD s/p CABG with subsequent closure of vein grafts and then had RCA stent. Non-revascularizable coronaries. 2. HTN uncontrolled: labile 3. DM uncontrolled (non compliant with diet) 4. PAD s/p L. BKA abd R. ray amputation and chronic R. heel ulcer; hx of R.SFA/ popliteal angioplasty and AT stent with eventual R. BKA. 5. kleinfelters 6. ASX moderate pulmonary stenosis 7. hx of chronic pain, hx of liver abscess and infections 8. legally blind 9. Pain medication dependence 10. Hx of non-compliance with missed HD in the past SOCHX: No Tobacco, ETOH or DRUBG abuse PSHX: as above ROS: legally blind, B/K BKA Past Patient History - Infectious Disease Hx of Infectious Diseases: None - Tetanus Immunizations Tetanus Immunization: >10 years Ago - Past Medical History & Family History Past Medical History?: Yes - Past Social History Smoking Status: Never Smoked - CARDIAC Hx Atrial Fibrillation: Yes Hx Cardia Arrhythmia: Yes Hx Congestive Heart Failure: Yes Hx Hypercholesterolemia: Yes Hx Hypertension: Yes - PULMONARY Hx Asthma: Yes Hx Bronchitis: Yes Hx Chronic Obstructive Pulmonary Disease (COPD): Yes - NEUROLOGICAL Hx Alzheimer's Disease: Yes Hx Seizures: Yes - HEENT Hx HEENT Problems: Yes Hx Blind: Yes (legally blind) Hx Cataracts: Yes - RENAL Hx Chronic Kidney Disease: Yes Date of Last Dialysis Treatment: 01/29/17 - ENDOCRINE/METABOLIC Hx Hyperthyroidism: Yes Hx Hypothyroidism: Yes - HEMATOLOGICAL/ONCOLOGICAL Hx Anemia: Yes - INTEGUMENTARY Hx Dermatological Problems: No - MUSCULOSKELETAL/RHEUMATOLOGICAL Hx Arthritis: Yes Hx Falls: Yes - GASTROINTESTINAL Hx Gall Bladder Disease: Yes - GENITOURINARY/GYNECOLOGICAL Hx Sexually Transmitted Disorders: No - PSYCHIATRIC Hx Anxiety: Yes Hx Depression: Yes Hx Substance Use: No - SURGICAL HISTORY Hx Cholecystectomy: Yes (2011) 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/2009) Hx Coronary Stent: Yes (X3) - ANESTHESIA Hx Anesthesia: Yes Hx Anesthesia Reactions: No Hx Malignant Hyperthermia: No Has any member of the family had a problem w/ anesthesia?: No Meds Allergies/Adverse Reactions: Allergies Allergy/AdvReac Type Severity Reaction Status Date / Time acetaminophen [From Percocet] Allergy RASH Verified 01/29/17 12:43 atenolol Allergy RASH Verified 01/29/17 12:43 digoxin Allergy RASH Verified 01/29/17 12:43 milk Allergy ITCHING Verified 01/29/17 12:43 morphine Allergy ITCHING Verified 01/29/17 12:43 oxycodone HCl [From Percocet] Allergy RASH Verified 01/29/17 12:43 - Medications Medications: Current Medications Amlodipine Besylate (Norvasc) 10 mg PO DAILY [facility] Last Admin: 01/30/17 11:00 Dose: 10 mg Carvedilol (Coreg) 25 mg PO BID [facility] Last Admin: 01/30/17 17:49 Dose: 25 mg Clonidine HCl (Catapres) 0.3 mg PO Q8H [facility] Last Admin: 01/31/17 02:15 Dose: Not Given Clopidogrel Bisulfate (Plavix) 75 mg PO DAILY [facility] Last Admin: 01/30/17 11:00 Dose: 75 mg Docusate Sodium (Colace) 100 mg PO PRN PRN PRN Reason: Constipation Famotidine (Pepcid) 20 mg PO BID [facility] Last Admin: 01/30/17 17:56 Dose: 20 mg Gabapentin (Neurontin) 100 mg PO BID [facility] Last Admin: 01/30/17 17:49 Dose: 100 mg Heparin Sodium (Porcine) (Heparin) 4,300 units IVP TuThSa [facility] Stop: 02/02/17 17:31 Last Admin: 01/29/17 17:36 Dose: 4,300 units Hydralazine HCl (Apresoline) 100 mg PO Q8 [facility] Last Admin: 01/31/17 05:52 Dose: Not Given Hydromorphone HCl (Dilaudid) 0.5 mg IVP Q4H PRN PRN Reason: Pain, severe (8-10) Last Admin: 01/31/17 02:10 Dose: 0.5 mg Insulin Glargine (Lantus) 18 unit SC HS [facility] Last Admin: 01/30/17 21:40 Dose: Not Given Insulin Human Regular (Novolin R) 0 unit SC ACHS [facility] PRN Reason: Protocol Last Admin: 01/31/17 09:02 Dose: 4 unit Isosorbide Mononitrate (Imdur) 60 mg PO DAILY [facility] Last Admin: 01/30/17 11:00 Dose: 60 mg Levothyroxine Sodium (Synthroid) 50 mcg PO DAILY@0630 [facility] Last Admin: 01/31/17 06:52 Dose: 50 mcg Multivitamins/Minerals (Therapeutic-M Tab) 1 tab PO DAILY [facility] Last Admin: 01/30/17 11:00 Dose: 1 tab Ondansetron HCl (Zofran Inj) 4 mg IVP Q6H PRN PRN Reason: Nausea/Vomiting Last Admin: 01/30/17 10:29 Dose: 4 mg Ranolazine (Ranexa) 500 mg PO BID [facility] Last Admin: 01/30/17 17:50 Dose: 500 mg Rosuvastatin Calcium (Crestor) 10 mg PO DAILY [facility] Last Admin: 01/30/17 11:00 Dose: 10 mg Sertraline HCl (Zoloft) 50 mg PO DAILY [facility] Last Admin: 01/30/17 11:00 Dose: 50 mg Physical Exam - Constitutional Appears: Chronically Ill - Head Exam Head Exam: ATRAUMATIC, NORMAL INSPECTION, NORMOCEPHALIC - Eye Exam Eye Exam: absent: Normal appearance - ENT Exam ENT Exam: Mucous Membranes Moist - Neck Exam Neck exam: Positive for: Normal Inspection - Respiratory Exam Respiratory Exam: Clear to Auscultation Bilateral, NORMAL BREATHING PATTERN. absent: Rales, Wheezes - Cardiovascular Exam Cardiovascular Exam: REGULAR RHYTHM, +S1, +S2, Systolic Murmur - GI/Abdominal Exam GI & Abdominal Exam: Normal Bowel Sounds, Soft. absent: Tenderness - Back Exam Back exam: NORMAL INSPECTION - Neurological Exam Neurological exam: Alert, Oriented x3 - Psychiatric Exam Psychiatric exam: Depressed - Skin Skin Exam: Normal Color, Warm - Additional Findings Additional findings: B/L BKA R. chest HD catheter Results - Vital Signs Recent Vital Signs: Last Vital Signs Temp 98 F 01/31/17 08:00 Pulse 69 01/31/17 09:04 Resp 20 01/31/17 08:00 BP 115/65 01/31/17 09:04 Pulse Ox 100 01/31/17 08:00 - Labs Result Diagrams: 01/30/17 14:13 01/30/17 14:13 Labs: Laboratory Results - last 24 hr 01/30/17 01/30/17 01/30/17 12:52 14:13 14:13 WBC 9.0 RBC 3.73 L Hgb 10.6 L Hct 32.9 L MCV 88.3 MCH 28.4 MCHC 32.1 L RDW 18.0 H Plt Count 224 MPV 9.2 Neut % (Auto) 80.8 H Lymph % (Auto) 9.9 L [place] % (Auto) 6.4 Eos % (Auto) 2.4 Baso % (Auto) 0.5 Neut # 7.2 H Lymph # 0.9 L [place] # 0.6 Eos # 0.2 Baso # 0.0 Neutrophils % (Manual) 85 H Lymphocytes % (Manual) 7 L Monocytes % (Manual) 6 Eosinophils % (Manual) 2 Platelet Estimate Normal Hypochromasia (manual) Slight Anisocytosis (manual) Slight Sodium 134 Potassium 4.8 Chloride 90 L Carbon Dioxide 27 Anion Gap 23 H BUN 36 H Creatinine 4.8 H Est GFR ( Amer) 17 Est GFR (Non-Af Amer) 14 POC Glucose (mg/dL) 436 H* Random Glucose 394 H Calcium 9.2 Total Bilirubin 0.7 AST 17 D ALT 13 L D Alkaline Phosphatase 107 Total Protein 8.2 Albumin 4.3 Globulin 3.9 Albumin/Globulin Ratio 1.1 01/30/17 01/30/17 01/31/17 16:59 21:18 00:56 WBC RBC Hgb Hct MCV MCH MCHC RDW Plt Count MPV Neut % (Auto) Lymph % (Auto) [place] % (Auto) Eos % (Auto) Baso % (Auto) Neut # Lymph # [place] # Eos # Baso # Neutrophils % (Manual) Lymphocytes % (Manual) Monocytes % (Manual) Eosinophils % (Manual) Platelet Estimate Hypochromasia (manual) Anisocytosis (manual) Sodium Potassium Chloride Carbon Dioxide Anion Gap BUN Creatinine Est GFR ( Amer) Est GFR (Non-Af Amer) POC Glucose (mg/dL) 461 H* 136 H 54 L Random Glucose Calcium Total Bilirubin AST ALT Alkaline Phosphatase Total Protein Albumin Globulin Albumin/Globulin Ratio 01/31/17 01/31/17 01/31/17 01:19 01:49 06:43 WBC RBC Hgb Hct MCV MCH MCHC RDW Plt Count MPV Neut % (Auto) Lymph % (Auto) [place] % (Auto) Eos % (Auto) Baso % (Auto) Neut # Lymph # [place] # Eos # Baso # Neutrophils % (Manual) Lymphocytes % (Manual) Monocytes % (Manual) Eosinophils % (Manual) Platelet Estimate Hypochromasia (manual) Anisocytosis (manual) Sodium Potassium Chloride Carbon Dioxide Anion Gap BUN Creatinine Est GFR ( Amer) Est GFR (Non-Af Amer) POC Glucose (mg/dL) 56 L 357 H 291 H Random Glucose Calcium Total Bilirubin AST ALT Alkaline Phosphatase Total Protein Albumin Globulin Albumin/Globulin Ratio - EKG Data EKG Interpreted by: Myself EKG shows normal: Sinus rhythm (LVH with chronic lateral strain) Assessment & Plan - Assessment and Plan (Free Text) Assessment: CAD: hx of CABG and stent; patient CAD status is stable and should be medically treated wth Coreg,IMDUR/Statin and DAPT. He has had normal LV function with chronic diastolic dysfunction. EKG: read by me: NSR, chronic unchanged lateral ST chages, LVH and LAE * LDL goal 50-70 * Diabetic control * DAPT, ASA, Coreg, Imdur, ranexa * No active cardiac sx's; cont medical therapy. * No new EKG changes versus prior EKGs: NSR, LVH with strain pattern * Congestion cont volume removal with HD HTN: labile Continue medical treatment as prescribed BP is better on max doses of coreg, hydralazine, Norvasc, clonidine: add minoxidil 2.5 daily in addition if needed. DM: labile: Cont medical rx continued education and counseling management per primary team PAD: S/P B/L BKA ASX No signs of ulcer or wound dehiscence ESRD: Stable chem cont maintainence HD, Monitor lytes
[2017-01-31] MEDS: Multivitamin With Minerals Tab PO SCH ×2 (10:00→13:25)
[2017-01-31] MEDS: Ranolazine 500 mg Extended Release Tablets PO SCH ×3 (10:00→17:36)
--- NOTE | 2017-01-31 14:42 | CP.PCM.PN ---
Subjective - Date & Time of Evaluation Date of Evaluation: 01/31/17 Time of Evaluation: 02:40 - Subjective Subjective: Appears comfortable in bed No sob Objective - Vital Signs/Intake and Output Vital Signs (last 24 hours): Temp Pulse Resp BP Pulse Ox 97.7 F 68 20 120/75 100 01/31/17 13:10 01/31/17 13:10 01/31/17 13:10 01/31/17 13:10 01/31/17 13:10 - Medications Medications: Current Medications Amlodipine Besylate (Norvasc) 10 mg PO DAILY [facility] Last Admin: 01/31/17 10:00 Dose: Not Given Carvedilol (Coreg) 25 mg PO BID [facility] Last Admin: 01/31/17 10:00 Dose: Not Given Clonidine HCl (Catapres) 0.3 mg PO Q8H [facility] Last Admin: 01/31/17 10:15 Dose: Not Given Clopidogrel Bisulfate (Plavix) 75 mg PO DAILY [facility] Last Admin: 01/31/17 13:24 Dose: 75 mg Docusate Sodium (Colace) 100 mg PO PRN PRN PRN Reason: Constipation Famotidine (Pepcid) 20 mg PO BID [facility] Last Admin: 01/31/17 13:24 Dose: 20 mg Gabapentin (Neurontin) 100 mg PO BID [facility] Last Admin: 01/31/17 13:25 Dose: 100 mg Heparin Sodium (Porcine) (Heparin) 4,300 units IVP TuTa [facility] Stop: 02/02/17 17:31 Last Admin: 01/31/17 12:29 Dose: 4,300 units Hydralazine HCl (Apresoline) 100 mg PO Q8 [facility] Last Admin: 01/31/17 05:52 Dose: Not Given Hydromorphone HCl (Dilaudid) 0.5 mg IVP Q4H PRN PRN Reason: Pain, severe (8-10) Last Admin: 01/31/17 02:10 Dose: 0.5 mg Insulin Glargine (Lantus) 18 unit SC HS [facility] Last Admin: 01/30/17 21:40 Dose: Not Given Insulin Human Regular (Novolin R) 0 unit SC ACHS [facility] PRN Reason: Protocol Last Admin: 01/31/17 13:12 Dose: 6 unit Isosorbide Mononitrate (Imdur) 60 mg PO DAILY [facility] Last Admin: 01/31/17 13:24 Dose: 60 mg Levothyroxine Sodium (Synthroid) 50 mcg PO DAILY@0630 [facility] Last Admin: 01/31/17 06:52 Dose: 50 mcg Multivitamins/Minerals (Therapeutic-M Tab) 1 tab PO DAILY [facility] Last Admin: 01/31/17 13:25 Dose: 1 tab Ondansetron HCl (Zofran Inj) 4 mg IVP Q6H PRN PRN Reason: Nausea/Vomiting Last Admin: 01/30/17 10:29 Dose: 4 mg Ranolazine (Ranexa) 500 mg PO BID [facility] Last Admin: 01/31/17 13:23 Dose: 500 mg Rosuvastatin Calcium (Crestor) 10 mg PO DAILY [facility] Last Admin: 01/31/17 13:25 Dose: 10 mg Sertraline HCl (Zoloft) 50 mg PO DAILY [facility] Last Admin: 01/31/17 13:24 Dose: 50 mg - Labs Labs: 01/30/17 14:13 01/30/17 14:13 - Respiratory Exam Additional comments: Lungs clear - Cardiovascular Exam Cardiovascular Exam: REGULAR RHYTHM - Extremities Exam Additional comments: / BKA Assessment and Plan - Assessment and Plan (Free Text) Assessment: ESRD on HD Volume overload corrected CAD,IDDM Plan: Dialysis was tolerated well today Predialysis BP s were relatively loww today. BP now 127 72 Cont HD per schedule
--- NOTE | 2017-01-31 16:45 | CP.PCM.PN ---
Subjective - Date & Time of Evaluation Date of Evaluation: 01/31/17 Time of Evaluation: 16:42 - Subjective Subjective: abd pain hi bs Objective - Vital Signs/Intake and Output Vital Signs (last 24 hours): Temp Pulse Resp BP Pulse Ox 98.9 F 67 18 136/64 100 01/31/17 15:13 01/31/17 15:13 01/31/17 15:13 01/31/17 15:13 01/31/17 15:13 Intake and Output: 01/31/17 01/31/17 06:59 18:59 Intake Total 500 Balance 500 - Medications Medications: Current Medications Amlodipine Besylate (Norvasc) 10 mg PO DAILY [facility] Last Admin: 01/31/17 10:00 Dose: Not Given Carvedilol (Coreg) 25 mg PO BID [facility] Last Admin: 01/31/17 10:00 Dose: Not Given Clonidine HCl (Catapres) 0.3 mg PO Q8H [facility] Last Admin: 01/31/17 10:15 Dose: Not Given Clopidogrel Bisulfate (Plavix) 75 mg PO DAILY [facility] Last Admin: 01/31/17 13:24 Dose: 75 mg Docusate Sodium (Colace) 100 mg PO PRN PRN PRN Reason: Constipation Famotidine (Pepcid) 20 mg PO DAILY [facility] Gabapentin (Neurontin) 100 mg PO BID [facility] Last Admin: 01/31/17 13:25 Dose: 100 mg Heparin Sodium (Porcine) (Heparin) 4,300 units IVP TuThSa [facility] Stop: 02/02/17 17:31 Last Admin: 01/31/17 12:29 Dose: 4,300 units Hydralazine HCl (Apresoline) 100 mg PO Q8 [facility] Last Admin: 01/31/17 14:55 Dose: Not Given Hydromorphone HCl (Dilaudid) 0.5 mg IVP Q4H PRN PRN Reason: Pain, severe (8-10) Last Admin: 01/31/17 15:44 Dose: 0.5 mg Insulin Aspart (Novolog Mix 70/30 (70/30 Units/Ml)) 10 units SC TID [facility] Insulin Glargine (Lantus) 18 unit SC HS [facility] Last Admin: 01/30/17 21:40 Dose: Not Given Insulin Human Regular (Novolin R) 0 unit SC ACHS [facility] PRN Reason: Protocol Last Admin: 01/31/17 13:12 Dose: 6 unit Isosorbide Mononitrate (Imdur) 60 mg PO DAILY [facility] Last Admin: 01/31/17 13:24 Dose: 60 mg Levothyroxine Sodium (Synthroid) 50 mcg PO DAILY@0630 [facility] Last Admin: 01/31/17 06:52 Dose: 50 mcg Multivitamins/Minerals (Therapeutic-M Tab) 1 tab PO DAILY [facility] Last Admin: 01/31/17 13:25 Dose: 1 tab Ondansetron HCl (Zofran Inj) 4 mg IVP Q6H PRN PRN Reason: Nausea/Vomiting Last Admin: 01/30/17 10:29 Dose: 4 mg Pantoprazole Sodium (Protonix Ec Tab) 40 mg PO DAILY [facility] Ranolazine (Ranexa) 500 mg PO BID [facility] Last Admin: 01/31/17 13:23 Dose: 500 mg Rosuvastatin Calcium (Crestor) 10 mg PO DAILY [facility] Last Admin: 01/31/17 13:25 Dose: 10 mg Sertraline HCl (Zoloft) 50 mg PO DAILY [facility] Last Admin: 01/31/17 13:24 Dose: 50 mg - Labs Labs: 01/30/17 14:13 01/30/17 14:13 - Constitutional Appears: Non-toxic - Head Exam Head Exam: NORMAL INSPECTION - Eye Exam Eye Exam: Conjunctival injection - ENT Exam ENT Exam: Mucous Membranes Moist - Neck Exam Neck Exam: Full ROM - Respiratory Exam Respiratory Exam: Decreased Breath Sounds - Cardiovascular Exam Cardiovascular Exam: REGULAR RHYTHM, +S4 - GI/Abdominal Exam GI & Abdominal Exam: Tenderness - Rectal Exam Rectal Exam: NORMAL INSPECTION - Extremities Exam Additional comments: bilAKA - Back Exam Back Exam: CVA tenderness (L) - Psychiatric Exam Psychiatric exam: Depressed - Skin Skin Exam: Normal Color, Pallor Assessment and Plan - Assessment and Plan (Free Text) Assessment: UNCONTROLED DMID ABD PAIN DEORESION ESRF HTN Plan: INC INSULIN PSYCH CONS
[2017-01-31] MEDS: Pantoprazole 40 mg EC Tab PO SCH (17:40)
[2017-01-31] MEDS ORDERED: (Novolog Mix 70/30) Insulin Aspart/Insulin Aspar 100 units/ml SC SCH (18:00)
[2017-01-31] MEDS: (Lantus) Insulin Glargine, Recombinant SC SCH (21:34)
[2017-02-01] MEDS: HYDROmorphone 0.5 mg/0.5 ml ISec IVP PRN ×3 (01:11→12:51)
[2017-02-01] MEDS: Levothyroxine 50 MCG TAB PO SCH (05:30)
[2017-02-01 07:58] VITALS: RESP 20
[2017-02-01] MEDS ORDERED: (Novolog Mix 70/30) Insulin Aspart/Insulin Aspar 100 units/ml SC SCH (10:00)
--- NOTE | 2017-02-01 10:40 | CP.PCM.PN ---
Subjective - Date & Time of Evaluation Date of Evaluation: 02/01/17 Time of Evaluation: 10:37 - Subjective Subjective: no vomiting co chest pain nosob bs still hi orderd more insulin Objective - Vital Signs/Intake and Output Vital Signs (last 24 hours): Temp Pulse Resp BP Pulse Ox 97.8 F 62 20 108/62 100 02/01/17 07:00 02/01/17 07:00 02/01/17 07:00 02/01/17 07:00 02/01/17 07:00 Intake and Output: 02/01/17 02/01/17 06:59 18:59 Intake Total 240 Balance 240 - Medications Medications: Current Medications Amlodipine Besylate (Norvasc) 10 mg PO DAILY [facility] Last Admin: 01/31/17 10:00 Dose: Not Given Carvedilol (Coreg) 25 mg PO BID [facility] Last Admin: 01/31/17 17:37 Dose: 25 mg Clonidine HCl (Catapres) 0.3 mg PO Q8H [facility] Last Admin: 02/01/17 01:17 Dose: 0.3 mg Clopidogrel Bisulfate (Plavix) 75 mg PO DAILY [facility] Last Admin: 01/31/17 13:24 Dose: 75 mg Docusate Sodium (Colace) 100 mg PO PRN PRN PRN Reason: Constipation Famotidine (Pepcid) 20 mg PO DAILY [facility] Gabapentin (Neurontin) 100 mg PO BID [facility] Last Admin: 01/31/17 17:37 Dose: 100 mg Heparin Sodium (Porcine) (Heparin) 4,300 units IVP TuThSa [facility] Stop: 02/02/17 17:31 Last Admin: 01/31/17 12:29 Dose: 4,300 units Hydralazine HCl (Apresoline) 100 mg PO Q8 [facility] Last Admin: 02/01/17 05:29 Dose: 100 mg Hydromorphone HCl (Dilaudid) 0.5 mg IVP Q4H PRN PRN Reason: Pain, severe (8-10) Last Admin: 02/01/17 05:29 Dose: 0.5 mg Insulin Aspart (Novolog Mix 70/30 (70/30 Units/Ml)) 10 units SC BID [facility] Insulin Glargine (Lantus) 18 unit SC [facility] Last Admin: 01/31/17 21:34 Dose: 18 units Isosorbide Mononitrate (Imdur) 60 mg PO DAILY [facility] Last Admin: 01/31/17 13:24 Dose: 60 mg Levothyroxine Sodium (Synthroid) 50 mcg PO DAILY@0630 [facility] Last Admin: 02/01/17 05:30 Dose: 50 mcg Multivitamins/Minerals (Therapeutic-M Tab) 1 tab PO DAILY [facility] Last Admin: 01/31/17 13:25 Dose: 1 tab Ondansetron HCl (Zofran Inj) 4 mg IVP Q6H PRN PRN Reason: Nausea/Vomiting Last Admin: 01/30/17 10:29 Dose: 4 mg Pantoprazole Sodium (Protonix Ec Tab) 40 mg PO DAILY [facility] Last Admin: 01/31/17 17:40 Dose: 40 mg Ranolazine (Ranexa) 500 mg PO BID [facility] Last Admin: 01/31/17 17:36 Dose: 500 mg Rosuvastatin Calcium (Crestor) 10 mg PO DAILY [facility] Last Admin: 01/31/17 13:25 Dose: 10 mg Sertraline HCl (Zoloft) 50 mg PO DAILY [facility] Last Admin: 01/31/17 13:24 Dose: 50 mg - Constitutional Appears: Non-toxic - Head Exam Head Exam: ATRAUMATIC - ENT Exam ENT Exam: Normal Exam - Respiratory Exam Respiratory Exam: Decreased Breath Sounds - Cardiovascular Exam Cardiovascular Exam: REGULAR RHYTHM - GI/Abdominal Exam GI & Abdominal Exam: Normal Bowel Sounds - Rectal Exam Rectal Exam: NORMAL INSPECTION - Extremities Exam Additional comments: s/p AKA BOTHLEXT - Back Exam Back Exam: CVA tenderness (L) - Neurological Exam Neurological Exam: Alert, Oriented x3 - Psychiatric Exam Psychiatric exam: Normal Affect - Skin Skin Exam: Normal Color, Pallor Assessment and Plan - Assessment and Plan (Free Text) Assessment: ESRF HTN DMID COPD WILL D/C HOME TODAY WITH [facility] AND TO CONT ALL MED
[2017-02-01] MEDS: Multivitamin With Minerals Tab PO SCH (11:01)
[2017-02-01] MEDS: Ranolazine 500 mg Extended Release Tablets PO SCH ×2 (11:01→18:59)
[2017-02-01] MEDS: (Novolog Mix 70/30) Insulin Aspart/Insulin Aspar 100 units/ml SC SCH ×2 (11:01→18:59)
[2017-02-01] MEDS: Pantoprazole 40 mg EC Tab PO SCH (11:01)
--- NOTE | 2017-02-01 12:12 | CON ---
DATE: 02/01/2017 CHIEF COMPLAINT AND REASON FOR CONSULTATION: The patient referred by Dr. Sybil Li for evaluation for depression and anxiety and the patient is dependent on narcotic. HISTORY OF PRESENT ILLNESS: This is a case of a 36-year-old male who is well known to me, having seen him numerous times in the past. The patient has history of delirium secondary to excessive intake of narcotics as well as history of depression and anxiety. The patient was brought in by the ambulance. He was complaining of fever, shills and shaking. He was just recently admitted in the unit. The patient was supposed to go for dialysis. The patient referred for comanagement due to the patient's history of depression. The patient has been taking Zoloft 50 mg daily, but noted to be asking for his pain meds. He has history of opiate dependence and has been taking Dilaudid in the past for many, many years secondary to neuropathy. The patient states he was taking Dilaudid 1 mg at home, but only taking 0.5 mg p.r.n. as the patient's blood pressure was noted to be very low. The patient is still insisting that he is still in severe pain. The patient is currently on Zoloft. Today, he stated that he wants 1 mg dose of Dilaudid, but his blood pressure is still very low. The patient continues to complain of pain, but when seen, he was talking to the phone. PAST PSYCHIATRIC HISTORY: History of depression, anxiety and delirium in the past. The patient used to have visual hallucinations, seeing tigers when he was taking too much narcotic, was admitted in the past for depression. ALLERGIES: THE PATIENT IS ALLERGIC TO PERCOCET, ATENOLOL, MILK, MORPHINE, DRUG AND ALCOHOL HISTORY: Has history of dependence to pain meds for many years , especially Dilaudid. No illicit drug history. PSYCHOSOCIAL HISTORY: The patient lives with his family. His mother used to be his caregiver, but the mother . LIST OF CURRENT MEDICATIONS: Includes Apresoline, Catapres, Colace, Crestor, Dilaudid 0.5 IV q. 4 p.r.n., Imdur, Lantus, Neurontin, Zoloft 50 mg daily, Ranexa, Synthroid. VITAL SIGNS: Temperature is 97.8, pulse rate 62, blood pressure is 108/62, respirations 20, oxygen sat is 100. REVIEW OF SYSTEMS: GENERAL: The patient is alert, verbal, in his room. The patient is a bilateral amputee. He is talking to phone, very med seeking. SKIN: No pruritus. HEENT: The patient is legally blind. No headache. NECK: Supple. RESPIRATORY: No dyspnea. CARDIOVASCULAR: No chest pain. GASTROINTESTINAL: No nausea, no vomiting. EXTREMITIES: The patient is a bilateral amputee, complaining of pain in his lower extremities. GENITOURINARY: No dysuria. NEUROLOGIC: Alert, oriented x 3. MENTAL STATUS EXAMINATION: Well-developed male, bilateral amputee, oriented x 3 , He weighs 140 pounds. The patient is very med seeking, anxious and chronically depressed. Affect is reactive. Mood is chronically depressed. Thought process coherent. Thought content: The patient is preoccupied about his pain meds. No psychosis. No suicidal or homicidal ideation. Attention and memory seem to be fair. Insight and judgment limited. Impulse control is fair at this time. IMPRESSION: History of recurrent depression, anxiety, mood disorder, history of drug abuse, history of drug-induced delirium in the past. PLAN AND RECOMMENDATION: The patient seen, meds reviewed. Continue present management. Continue Zoloft 50 mg daily as ordered. I do advise to keep his Dilaudid at 0.5 mg q 4h prn for now as the patient's blood pressure seems to be low. I did explain it to him. The patient states he used to take higher dose. Even at one point, he was taking 2 mg, but the patient's blood pressure is low. Continue dialysis as ordered. There is no need to change his psych meds as ordered. Once he is medically cleared, he can go back to his family. Dale Joseph MD cc: [id number] TT: 02/01/2017 12:11:06 Confirmation # [id number] Dictation # [id number]
[2017-02-01] MEDS: (Novolin R) Insulin Human Regular 100 units/ml vial SC SCH ×3 (12:33→22:01)
[2017-02-01 14:29] VITALS: PULSE 69
[2017-02-01 16:22] VITALS: TEMP 97.4; O2SAT 99
--- NOTE | 2017-02-01 17:29 | CP.PCM.PN ---
Subjective - Date & Time of Evaluation Date of Evaluation: 02/01/17 Time of Evaluation: 17:29 - Subjective Subjective: Alert, awake, NAD. Objective - Vital Signs/Intake and Output Vital Signs (last 24 hours): Temp Pulse Resp BP Pulse Ox 97.4 F L 69 20 96/62 L 99 02/01/17 15:55 02/01/17 15:55 02/01/17 15:55 02/01/17 15:55 02/01/17 15:55 Intake and Output: 02/01/17 02/01/17 06:59 18:59 Intake Total 240 460 Balance 240 460 - Medications Medications: Current Medications Amlodipine Besylate (Norvasc) 10 mg PO DAILY [facility] Last Admin: 02/01/17 11:00 Dose: Not Given Carvedilol (Coreg) 25 mg PO BID [facility] Last Admin: 02/01/17 11:00 Dose: Not Given Clonidine HCl (Catapres) 0.3 mg PO Q8H [facility] Last Admin: 02/01/17 11:00 Dose: Not Given Clopidogrel Bisulfate (Plavix) 75 mg PO DAILY [facility] Last Admin: 02/01/17 11:01 Dose: 75 mg Docusate Sodium (Colace) 100 mg PO PRN PRN PRN Reason: Constipation Famotidine (Pepcid) 20 mg PO DAILY [facility] Last Admin: 02/01/17 11:01 Dose: 20 mg Gabapentin (Neurontin) 100 mg PO BID [facility] Last Admin: 02/01/17 11:01 Dose: 100 mg Heparin Sodium (Porcine) (Heparin) 4,300 units IVP TuThSa [facility] Stop: 02/02/17 17:31 Last Admin: 01/31/17 12:29 Dose: 4,300 units Hydralazine HCl (Apresoline) 100 mg PO Q8 [facility] Last Admin: 02/01/17 14:40 Dose: Not Given Hydromorphone HCl (Dilaudid) 0.5 mg IVP Q4H PRN PRN Reason: Pain, severe (8-10) Last Admin: 02/01/17 12:51 Dose: 0.5 mg Insulin Aspart (Novolog Mix 70/30 (70/30 Units/Ml)) 10 units SC BID [facility] Last Admin: 02/01/17 11:01 Dose: 10 units Insulin Glargine (Lantus) 18 unit SC [facility] Last Admin: 01/31/17 21:34 Dose: 18 units Insulin Human Regular (Novolin R) 0 unit SC ACHS [facility] PRN Reason: Protocol Last Admin: 02/01/17 12:33 Dose: 10 unit Isosorbide Mononitrate (Imdur) 60 mg PO DAILY [facility] Last Admin: 02/01/17 11:01 Dose: 60 mg Levothyroxine Sodium (Synthroid) 50 mcg PO DAILY@0630 [facility] Last Admin: 02/01/17 05:30 Dose: 50 mcg Multivitamins/Minerals (Therapeutic-M Tab) 1 tab PO DAILY [facility] Last Admin: 02/01/17 11:01 Dose: 1 tab Ondansetron HCl (Zofran Inj) 4 mg IVP Q6H PRN PRN Reason: Nausea/Vomiting Last Admin: 01/30/17 10:29 Dose: 4 mg Pantoprazole Sodium (Protonix Ec Tab) 40 mg PO DAILY [facility] Last Admin: 02/01/17 11:01 Dose: 40 mg Ranolazine (Ranexa) 500 mg PO BID [facility] Last Admin: 02/01/17 11:01 Dose: 500 mg Rosuvastatin Calcium (Crestor) 10 mg PO DAILY [facility] Last Admin: 02/01/17 11:01 Dose: 10 mg Sertraline HCl (Zoloft) 50 mg PO DAILY [facility] Last Admin: 02/01/17 11:01 Dose: 50 mg Assessment and Plan - Assessment and Plan (Free Text) Assessment: Patient is seen and examined. No sob or chest pains, blood sugar repeat prior to dinner 166. D/W DR Li, plan to discharge home today. Will continue with HD in am as scheduled.
--- NOTE | 2017-02-01 17:34 | PCM.HF ---
Heart Failure Core Measure - Heart Failure Ejection Fraction: 40 % or Greater (EF >48%) RAÚL Inhibitor Prescribed: No Contraindication/Reason for not providing: ESRD Beta-Andrew Prescribed: Carvedilol Angiotensin II Receptor Andrew Prescribed: No Contraindication/Reason for not providing: ESRD AnticoagulationTherapy for Atrial Fibrillation/Atrialflutter: No Contraindication/Reason for not providing: no afib Aldosterone Antagonist Prescribed: No Contraindication/Reason for not providing: EF>40% Hydralazine Nitrate Prescribed: Yes Implantable Cardioverter Defibrillator Therapy: No Contraindication/Reason for not providing: EF >40% Cardiac Resynchronization Therapy Prescribed: No Contraindication/Reason for not providing: not indicated - Follow up Will be discharged to: Home Follow Up Date (must be within 7 days from discharge): 02/05/17 Follow Up Time: 09:00
[2017-02-01 19:00] VITALS: BP 94/57
[2017-02-01] MEDS: (Lantus) Insulin Glargine, Recombinant SC SCH (22:01)
--- NOTE | 2017-02-03 21:37 | CARD ---
APPROVED REPORT EKG Measurement Heart [id number] MD [id number] <Conclusion> Normal sinus rhythm Left ventricular hypertrophy with repolarization abnormality Abnormal ECG
--- NOTE | 2017-02-21 19:29 | CARD ---
APPROVED REPORT EKG Measurement Heart [id number] <Conclusion> Normal sinus rhythm Left ventricular hypertrophy with repolarization abnormality Abnormal ECG
--- NOTE | 2017-03-21 11:50 | DS ---
HISTORY OF PRESENT ILLNESS: He came in, while he was having dialysis, he started to have vomiting. He was short of breath. His sugar was high. He was admitted and started on diabetes monitoring and Zofran, and he had blood work done. His blood sugar was initially 450 something and his blood pressure was 168/100 something. By the time he was admitted, he became hypertensive and we hold all his medications for his blood pressure. He was on oxygen. He has temperature of 97.9 and his blood pressure as I said was *------*. His hemoglobin was 9.7/29, his sugar was 473, and his BUN and creatinine were 72/7.5. He had hemodialysis. His potassium was very high at 6.4, so he has dialysis to get rid of this, his proBNP was 3408, and his total protein was 7.7. His sugar improved to 129 with the monitoring and coverage and after the dialysis, his potassium improved. He was feeling better and he was discharged home with home healthcare with all his medications as same ordered and he will be seen in my office for followup after one week. FINAL DIAGNOSES: 1. Vomiting. 2. Coronary artery disease. 3. End-stage renal failure. 4. Hyperkalemia. 5. Anemia. Sybil Li MD
== END 2017-02-01 22:05 | disposition home or self-care (01) ==
LOC: C.ER 12:37 → C.9E 14:09 → C.5T 16:04 → OBSVTOIN 01-31 16:49 → INTOOBSV 01-31 16:49
PROVIDERS: ADMIT Internal Medicine; ATTEND Internal Medicine
PROC: 5A1D60Z (ICD-10-PCS; principal; 2017-01-29)
DX: I12.0 Hypertensive chronic kidney disease with stage 5 chronic kidney disease or end stage renal disease (principal); N18.6 End stage renal disease; E11.22 Type 2 diabetes mellitus with diabetic chronic kidney disease; E87.5 Hyperkalemia; E11.51 Type 2 diabetes mellitus with diabetic peripheral angiopathy without gangrene; J44.9 Chronic obstructive pulmonary disease, unspecified; L97.419 Non-pressure chronic ulcer of right heel and midfoot with unspecified severity; E11.621 Type 2 diabetes mellitus with foot ulcer; D64.9 Anemia, unspecified; I25.10 Atherosclerotic heart disease of native coronary artery without angina pectoris; J45.909 Unspecified asthma, uncomplicated; F33.9 Major depressive disorder, recurrent, unspecified; E78.5 Hyperlipidemia, unspecified; F02.80 Dementia in other diseases classified elsewhere, unspecified severity, without behavioral disturbance, psychotic disturbance, mood disturbance, and anxiety; E11.65 Type 2 diabetes mellitus with hyperglycemia; E03.9 Hypothyroidism, unspecified; G30.9 Alzheimer's disease, unspecified; H54.8 Legal blindness, as defined in USA; Z91.15 Patient's noncompliance with renal dialysis; Z91.11 Patient's noncompliance with dietary regimen; Z99.2 Dependence on renal dialysis; Z79.4 Long term (current) use of insulin; Z90.49 Acquired absence of other specified parts of digestive tract; Z95.1 Presence of aortocoronary bypass graft; Z89.512 Acquired absence of left leg below knee; Z89.421 Acquired absence of other right toe(s)
CPT/HCPCS: 36415; 71010; 80053; 82948; 83880; 84484; 85025; 87040; 87804; 93005; 99282; G0378; J1170; J1644; J2405

== ENCOUNTER 2017-02-03 13:36 | Inpatient (IN) | payer OTHER ==
[2017-02-03 13:37] VITALS: PULSE 66; BMI 20.7
[2017-02-03] MEDS ORDERED: Sodium Chloride 0.9% 1,000 ML IV ONE (14:21)
[2017-02-03] MEDS ORDERED: (Novolin R) Insulin Human Regular 100 units/ml vial IV STA (14:22)
[2017-02-03] MEDS ORDERED: (Novolin R) Insulin Human Regular 100 units/ml vial ONE (14:39)
[2017-02-03 14:40] LABS: BASO # 0.1 K/uL (0.0-0.2); BASO % 0.7 % (0.0-2.0); EOS # 0.2 K/uL (0.0-0.7); EOS % 1.8 % (0.0-4.0); HEMATOCRIT 28.4 % (35.0-51.0); LYMPH # 1.5 K/uL (1.0-4.3); LYMPH % 14.4 % (20.0-40.0); MEAN CELL VOLUME 87.7 fL (80.0-94.0); MEAN CORPUSCULAR HEMOGLOBIN 28.3 pg (27.0-31.0); MEAN CORPUSCULAR HGB CONC 32.3 g/dL (33.0-37.0); MEAN PLATELET VOLUME 9.8 fL (7.2-11.7); MONO # 0.7 K/uL (0.0-0.8); MONO % 7.2 % (0.0-10.0); RED CELL DISTRIBUTION WIDTH 17.4 % (11.5-14.5); WHITE BLOOD COUNT 10.1 K/uL (4.8-10.8)
[2017-02-03] MEDS ORDERED: DiphenhydrAMINE 50 mg/ml Inj IVP STA (14:42)
[2017-02-03 15:07] LABS: CHLORIDE 91 mmol/L (98-107); SODIUM 130 mmol/L (132-148)
[2017-02-03 15:09] LABS: AST/SGOT 40 U/L (17-59); CARBON DIOXIDE 28 mmol/L (22-30); GFR AFRICAN-AMERICAN 20
[2017-02-03 15:10] LABS: ALKALINE PHOSPHATASE 139 U/L (38-126); BLOOD UREA NITROGEN 39 mg/dL (9-20); MAGNESIUM 2.1 mg/dL (1.6-2.3); TOTAL PROTEIN 7.1 g/dL (6.3-8.3)
--- NOTE | 2017-02-03 15:20 | C.PDOC ---
History Of Present Illness Patient is a 36 y/o male that presents to the emergency department for evaluation of elevated blood sugar level. Pt states he was seen here for fever, and low blood pressure, and was discharged 2 days ago. Otherwise, denies any headache, dizziness, lightheadedness, chest pain, shortness of breath, or any other associated symptoms at this time. He did have dialysis yesterday. Time Seen by Provider: 02/03/17 14:02 Chief Complaint (Nursing): High Blood Sugar Past Medical History Reviewed: Historical Data, Nursing Documentation, Vital Signs Vital Signs: Last Vital Signs Temp 98.2 F 02/03/17 13:42 Pulse 68 02/03/17 14:43 Resp 16 02/03/17 14:43 BP 118/43 L 02/03/17 14:43 Pulse Ox 99 02/03/17 15:52 - Medical History PMH: Alzheimer's Disease, Anemia, Anxiety, Arthritis, Asthma, Atrial Fibrillation, Bronchitis, CAD, Cardia Arrhythmia, CHF, COPD, CVA, Depression, Diabetes, Deep Vein Thrombosis, Gastrointestinal Ulcer, Gall Bladder Disease, HTN, Hypercholesterolemia, Hyperthyroidism, Hypothyroidism, End Stage Renal Disease (on dialysis Sat//Sat.), Chronic Kidney Disease, Seizures Denies: Sexually Transmitted Disease Surgical History: CABG (12/2009), Cholecystectomy (2012), Coronary Stent (X3) - [facility] Procedures ABDOMINAL WALL SINOGRAM (12/31/13) C.A.T. SCAN OF ABDOMEN (10/31/13) CENTRAL VENOUS CATHETER PLACEMENT WITH GUIDANCE (02/10/15) DILATE R ANT TIB ART W DRUG-ELUT INTRALUM, PERC (08/12/15) DILATION OF LEFT FEMORAL ARTERY, PERCUTANEOUS APPROACH (07/04/16) DILATION OF RIGHT FEMORAL ARTERY, PERCUTANEOUS APPROACH (08/12/15) DILATION OF RIGHT POPLITEAL ARTERY, PERCUTANEOUS APPROACH (08/12/15) DX ULTRASOUND-HEART (01/05/13) ENTERAL INFUSION OF CONCENTRATED NUT. SUBSTANCES (06/28/13) EXCIS DEBRIDE OF WOUND, INFECT, OR BURN (08/03/14) EXTIRPATION OF MATTER FROM L FEM ART, PERC APPROACH (07/04/16) EXTIRPATION OF MATTER FROM R FEM ART, PERC APPROACH (08/12/15) EXTIRPATION OF MATTER FROM R POPL ART, PERC APPROACH (08/12/15) FLUOROSCOPY OF L LOW EXTREM ART USING L OSM CONTRAST (08/12/15) FLUOROSCOPY OF R LOW EXTREM ART USING L OSM CONTRAST (08/12/15) FREE SKIN GRAFT NEC (08/03/14) HEAD SOFT TISS X-RAY NEC (04/15/13) HEMODIALYSIS (04/28/15) INCIS W REM OF FORIEGN BODY OR DEV FROM SKIN & SUBCUT TISSUE (08/08/13) INSERTION OF INFUSION DEV INTO R SUBCLAV VEIN, PERC APPROACH (01/19/16) INTRODUCE OF OTH THROMBOLYTIC INTO PERIPH ART, PERC APPROACH (08/12/15) LAPAROSCOPIC CHOLECYSTECTOMY (09/21/13) LOC EXC LES METATAR/TAR (06/01/14) PACKED CELL TRANSFUSION (06/01/14) PERCUTAN LIVER ASPIRAT (12/31/13) PERFORMANCE OF URINARY FILTRATION, MULTIPLE (01/17/17) PERFORMANCE OF URINARY FILTRATION, SINGLE (12/18/16) SKIN & SUBQ INCISION NEC (10/24/14) TETANUS TOXOID ADMINIST (06/13/14) VENOUS CATHETERIZATION FOR RENAL DIALYSIS (08/08/13) VENOUS CATHETERIZATION NEC (04/30/13) Family History: States: Unknown Family Hx - Social History Hx Tobacco Use: No Hx Alcohol Use: No Hx Substance Use: No - Immunization History Hx Tetanus Toxoid Vaccination: Yes Hx Influenza Vaccination: Yes Hx Pneumococcal Vaccination: Yes Review Of Systems Except As Marked, All Systems Reviewed And Found Negative. Constitutional: Negative for: Fever, Chills Cardiovascular: Negative for: Chest Pain, Palpitations Respiratory: Negative for: Cough, Shortness of Breath Gastrointestinal: Negative for: Nausea, Vomiting, Abdominal Pain, Diarrhea Genitourinary: Negative for: Dysuria, Frequency, Hematuria Neurological: Negative for: Weakness, Numbness, Headache, Dizziness Physical Exam - Physical Exam Appears: Non-toxic, No Acute Distress Skin: Warm, Dry, Other (dusky skin color) Head: Atraumatic, Normacephalic Eye(s): bilateral: Other (blind; corneal opacities) Neck: Normal ROM, Supple Chest: Symmetrical, No Tenderness Cardiovascular: Rhythm Regular, No Murmur Respiratory: Normal Breath Sounds, No Rales, No Rhonchi, No Wheezing Gastrointestinal/Abdominal: Soft, No Tenderness Extremity: Other (bilateral below knee amputation) Neurological/Psych: Oriented x3, Normal Speech, Normal Cognition ED Course And Treatment - Laboratory Results Result Diagrams: 02/03/17 14:33 02/03/17 14:49 Lab Interpretation: Abnormal (Markedly elevated glucose with hyponatremia, anemia, renal failure, K+ 4.8) O2 Sat by Pulse Oximetry: 99 (on RA) Pulse Ox Interpretation: Normal Progress Note: Labs ordered and reviewed. Patient was given Benadryl, Dilaudid, Insulin, and IV fluids in the ER. Reevaluation Time: 16:21 Reassessment Condition: Improved (glucose 386.) - Physician Consult Information Time Consulting Physician Contacted: 16:21 Physician Contacted: Sybil Li Disposition - Disposition Disposition: HOSPITALIZED Disposition Time: 16:21 Condition: IMPROVED - POA Present On Arrival: Poor Glycemic Control - Clinical Impression Clinical Impression: Diabetes mellitus, insulin dependent (IDDM), uncontrolled, ESRD (end stage renal disease) on dialysis - Scribe Statement The provider has reviewed the documentation as recorded by the Fabiola Tavera Provider Attestation: All medical record entries made by the Fabiola were at my direction and personally dictated by me. I have reviewed the chart and agree that the record accurately reflects my personal performance of the history, physical exam, medical decision making, and the department course for this patient. I have also personally directed, reviewed, and agree with the discharge instructions and disposition.
[2017-02-03 15:21] LABS: ALT/SGPT < 6 U/L (21-72); GLUCOSE,RANDOM 549 mg/dL (75-110)
[2017-02-03 15:22] LABS: POTASSIUM 4.8 mmol/L (3.6-5.2)
[2017-02-03] MEDS ORDERED: DiphenhydrAMINE 50 mg/ml Inj ONE (15:26)
[2017-02-03] MEDS ORDERED: (Lantus) Insulin Glargine, Recombinant SC SCH (22:00)
[2017-02-03] MEDS: HYDROmorphone 1 mg/ml ISec IVP PRN (22:24)
[2017-02-03] MEDS: (Novolog) Insulin Aspart, Recombinant 100 u/ml 10 ml vial SC SCH (22:26)
[2017-02-03] MEDS: Albuterol-Ipratrop 3 mg / 0.5 (3 ml) UD INH SCH (23:57)
[2017-02-04] MEDS: HYDROmorphone 1 mg/ml ISec IVP PRN ×3 (05:40→18:57)
[2017-02-04] MEDS: Levothyroxine 50 MCG TAB PO SCH (06:58)
[2017-02-04] MEDS: (Novolog) Insulin Aspart, Recombinant 100 u/ml 10 ml vial SC SCH ×4 (08:14→21:58)
[2017-02-04] MEDS: Albuterol-Ipratrop 3 mg / 0.5 (3 ml) UD INH SCH ×2 (08:28→16:04)
[2017-02-04] MEDS: Pantoprazole 40 mg EC Tab PO SCH (09:41)
[2017-02-04] MEDS: Multivitamin With Minerals Tab PO SCH (09:42)
[2017-02-04] MEDS: Calcium Carbonate 500 mg Chewable Antacid Tab PO SCH ×2 (09:42→17:35)
[2017-02-04] MEDS: Ranolazine 500 mg Extended Release Tablets PO SCH (09:42)
--- NOTE | 2017-02-04 11:33 | CP.PCM.CON ---
History of Present Illness - History of Present Illness History of Present Illness: 36 y/o male with ESRD on maintenance HD, HTN, IDDM,CAD/CABG,PVD was admitted yesterday for uncontrolled DM Pt denies SOB or CP Pts dialysis schedule is TTS & he receives dialysis via Rt IJ perm catheter. Past Patient History - Infectious Disease Hx of Infectious Diseases: None - Tetanus Immunizations Tetanus Immunization: >10 years Ago - Past Medical History & Family History Past Medical History?: Yes - Past Social History Smoking Status: Never Smoked - CARDIAC Hx Atrial Fibrillation: Yes Hx Cardia Arrhythmia: Yes Hx Congestive Heart Failure: Yes Hx Hypercholesterolemia: Yes Hx Hypertension: Yes - PULMONARY Hx Asthma: Yes Hx Bronchitis: Yes Hx Chronic Obstructive Pulmonary Disease (COPD): Yes - NEUROLOGICAL Hx Alzheimer's Disease: Yes Hx Seizures: Yes - HEENT Hx HEENT Problems: Yes Hx Blind: Yes (legally blind) Hx Cataracts: Yes - RENAL Hx Chronic Kidney Disease: Yes - ENDOCRINE/METABOLIC Hx Diabetes Mellitus Type 2: Yes Hx Hyperthyroidism: No Hx Hypothyroidism: Yes - HEMATOLOGICAL/ONCOLOGICAL Hx Anemia: Yes - INTEGUMENTARY Hx Dermatological Problems: No - MUSCULOSKELETAL/RHEUMATOLOGICAL Hx Arthritis: Yes Hx Falls: Yes - GASTROINTESTINAL Hx Gall Bladder Disease: Yes - GENITOURINARY/GYNECOLOGICAL Hx Sexually Transmitted Disorders: No - PSYCHIATRIC Hx Anxiety: Yes Hx Depression: Yes Hx Substance Use: No - SURGICAL HISTORY Hx Cholecystectomy: Yes (2011) 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/2009) Hx Coronary Stent: Yes (X3) - ANESTHESIA Hx Anesthesia: Yes Hx Anesthesia Reactions: No Hx Malignant Hyperthermia: No Meds Allergies/Adverse Reactions: Allergies Allergy/AdvReac Type Severity Reaction Status Date / Time acetaminophen [From Percocet] Allergy RASH Verified 02/03/17 13:47 atenolol Allergy RASH Verified 02/03/17 13:47 digoxin Allergy RASH Verified 02/03/17 13:47 milk Allergy ITCHING Verified 02/03/17 13:47 morphine Allergy ITCHING Verified 02/03/17 13:47 oxycodone HCl [From Percocet] Allergy RASH Verified 02/03/17 13:47 - Medications Medications: Current Medications Albuterol/Ipratropium (Duoneb 3 Mg/0.5 Mg (3 Ml) Ud) 3 ml INH RQ8 [facility] Last Admin: 02/04/17 08:28 Dose: 3 ml Amlodipine Besylate (Norvasc) 10 mg PO DAILY [facility] Last Admin: 02/04/17 09:42 Dose: 10 mg Aspirin (Aspirin Chewable) 81 mg PO DAILY [facility] Last Admin: 02/04/17 09:41 Dose: 81 mg Calcitriol (Rocaltrol) 0.25 mcg PO DAILY [facility] Last Admin: 02/04/17 09:42 Dose: 0.25 mcg Calcium Carbonate (Tums) 1,000 mg PO BID [facility] Last Admin: 02/04/17 09:42 Dose: 1,000 mg Carvedilol (Coreg) 25 mg PO BID [facility] Last Admin: 02/04/17 09:41 Dose: 25 mg Clopidogrel Bisulfate (Plavix) 75 mg PO DAILY [facility] Last Admin: 02/04/17 09:41 Dose: 75 mg Docusate Sodium (Colace) 100 mg PO BID PRN PRN Reason: Constipation Epoetin Tom (Procrit) 8,000 unit IV TTS [facility] Gabapentin (Neurontin) 100 mg PO BID [facility] Last Admin: 02/04/17 09:41 Dose: 100 mg Hydralazine HCl (Apresoline) 100 mg PO BID [facility] Last Admin: 02/04/17 09:42 Dose: 100 mg Hydromorphone HCl (Dilaudid) 1 mg IVP Q6H PRN PRN Reason: Pain, severe (8-10) Last Admin: 02/04/17 05:40 Dose: 1 mg Insulin Aspart (Novolog) 0 unit SC [facility] PRN Reason: Protocol Last Admin: 02/04/17 08:14 Dose: 4 unit Insulin Glargine (Lantus) 18 unit SC [facility] Last Admin: 02/03/17 22:25 Dose: 18 u Isosorbide Mononitrate (Imdur) 60 mg PO DAILY [facility] Last Admin: 02/04/17 09:42 Dose: 60 mg Levothyroxine Sodium (Synthroid) 50 mcg PO DAILY@0630 [facility] Last Admin: 02/04/17 06:58 Dose: 50 mcg Multivitamins/Minerals (Therapeutic-M Tab) 1 tab PO DAILY [facility] Last Admin: 02/04/17 09:42 Dose: 1 tab Pantoprazole Sodium (Protonix Ec Tab) 40 mg PO DAILY [facility] Last Admin: 02/04/17 09:41 Dose: 40 mg Ranolazine (Ranexa) 500 mg PO DAILY [facility] Last Admin: 02/04/17 09:42 Dose: 500 mg Rosuvastatin Calcium (Crestor) 10 mg PO HS [facility] Last Admin: 02/03/17 22:24 Dose: 10 mg Sertraline HCl (Zoloft) 50 mg PO DAILY [facility] Last Admin: 02/04/17 09:42 Dose: 50 mg Physical Exam - Constitutional Appears: No Acute Distress - Head Exam Head Exam: ATRAUMATIC, NORMOCEPHALIC - Eye Exam Additional comments: No icterus pt is blind - ENT Exam ENT Exam: Mucous Membranes Moist - GI/Abdominal Exam GI & Abdominal Exam: Soft Additional comments: nontender - Extremities Exam Additional comments: B/L BKA Results - Vital Signs Recent Vital Signs: Last Vital Signs Temp 98.3 F 02/04/17 08:33 Pulse 70 02/04/17 08:33 Resp 20 02/04/17 08:33 BP 172/74 H 02/04/17 09:41 Pulse Ox 97 02/04/17 08:33 - Labs Result Diagrams: 02/03/17 14:33 02/03/17 14:49 Labs: Laboratory Results - last 24 hr 02/03/17 02/04/17 20:14 06:56 POC Glucose (mg/dL) 352 H 278 H Assessment & Plan - Assessment and Plan (Free Text) Assessment: ESRD HTN CAD/CABG IDDM PVD Plan: Will continue HD per schedule. BP & volume appear controlled Continue current Mx
--- NOTE | 2017-02-04 18:23 | CP.PCM.HP ---
History of Present Illness - History of Present Illness History of Present Illness: hi bs low bp [place] and neck pain Present on Admission - Present on Admission Any Indicators Present on Admission: Yes Review of Systems - Review of Systems Systems not reviewed;Unavailable: Acuity of Condition, Unstable Vital Signs - Constitutional Constitutional: Fatigue - EENT Eyes: Blind Spots Ears: As Per HPI Nose/Mouth/Throat: As Per HPI - Cardiovascular Cardiovascular: Dyspnea, Pain Radiating to Arm/Neck/Jaw - Respiratory Respiratory: Dyspnea on Exertion - Gastrointestinal Gastrointestinal: Bloating - Genitourinary Genitourinary: As Per HPI - Reproductive: Male Reproductive:Male: As Per HPI - Musculoskeletal Musculoskeletal: Back Pain, Neck Pain - Integumentary Integumentary: As Per HPI - Neurological Additional comments: a/pbilateral amputation - Psychiatric Psychiatric: Depression - Endocrine Endocrine: Polydipsia, Polyphagia - Hematologic/Lymphatic Hematologic: As Per HPI Past Patient History - Infectious Disease Hx of Infectious Diseases: None - Tetanus Immunizations Tetanus Immunization: >10 years Ago - Past Medical History & Family History Past Medical History?: Yes - Past Social History Smoking Status: Never Smoked - CARDIAC Hx Atrial Fibrillation: Yes Hx Cardia Arrhythmia: Yes Hx Congestive Heart Failure: Yes Hx Hypercholesterolemia: Yes Hx Hypertension: Yes - PULMONARY Hx Asthma: Yes Hx Bronchitis: Yes Hx Chronic Obstructive Pulmonary Disease (COPD): Yes - NEUROLOGICAL Hx Alzheimer's Disease: Yes Hx Seizures: Yes - HEENT Hx HEENT Problems: Yes Hx Blind: Yes (legally blind) Hx Cataracts: Yes - RENAL Hx Chronic Kidney Disease: Yes - ENDOCRINE/METABOLIC Hx Diabetes Mellitus Type 2: Yes Hx Hyperthyroidism: No Hx Hypothyroidism: Yes - HEMATOLOGICAL/ONCOLOGICAL Hx Anemia: Yes - INTEGUMENTARY Hx Dermatological Problems: No - MUSCULOSKELETAL/RHEUMATOLOGICAL Hx Arthritis: Yes Hx Falls: Yes - GASTROINTESTINAL Hx Gall Bladder Disease: Yes - GENITOURINARY/GYNECOLOGICAL Hx Sexually Transmitted Disorders: No - PSYCHIATRIC Hx Anxiety: Yes Hx Depression: Yes Hx Substance Use: No - SURGICAL HISTORY Hx Cholecystectomy: Yes (2011) 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/2009) Hx Coronary Stent: Yes (X3) - ANESTHESIA Hx Anesthesia: Yes Hx Anesthesia Reactions: No Hx Malignant Hyperthermia: No Meds Allergies/Adverse Reactions: Allergies Allergy/AdvReac Type Severity Reaction Status Date / Time acetaminophen [From Percocet] Allergy RASH Verified 02/03/17 13:47 atenolol Allergy RASH Verified 02/03/17 13:47 digoxin Allergy RASH Verified 02/03/17 13:47 milk Allergy ITCHING Verified 02/03/17 13:47 morphine Allergy ITCHING Verified 02/03/17 13:47 oxycodone HCl [From Percocet] Allergy RASH Verified 02/03/17 13:47 Physical Exam - Constitutional Appears: Non-toxic - Head Exam Head Exam: NORMAL INSPECTION - Eye Exam Additional comments: legaly blind - ENT Exam ENT Exam: Mucous Membranes Dry - Neck Exam Neck exam: Positive for: Tenderness - Respiratory Exam Respiratory Exam: Decreased Breath Sounds - Cardiovascular Exam Cardiovascular Exam: REGULAR RHYTHM - GI/Abdominal Exam GI & Abdominal Exam: Normal Bowel Sounds - Rectal Exam Rectal Exam: NORMAL INSPECTION - Extremities Exam Additional comments: s/pAKA - Back Exam Back exam: CVA tenderness (L) - Neurological Exam Neurological exam: Oriented x3 - Psychiatric Exam Psychiatric exam: Normal Mood - Skin Skin Exam: Normal Color, Pallor Results - Vital Signs Recent Vital Signs: Last Vital Signs Temp 98.3 F 02/04/17 16:00 Pulse 83 02/04/17 16:00 Resp 20 02/04/17 16:00 BP 105/55 L 02/04/17 17:36 Pulse Ox 99 02/04/17 16:00 - Labs Result Diagrams: 02/03/17 14:33 02/03/17 14:49 Labs: Laboratory Results - last 24 hr 02/03/17 02/04/17 02/04/17 20:14 06:56 12:01 POC Glucose (mg/dL) 352 H 278 H 218 H 02/04/17 16:14 POC Glucose (mg/dL) 298 H Assessment & Plan - Assessment and Plan (Free Text) Assessment: UNCONTROLED DMID HYPOTENSION ESRF HTH Plan: PER ORDERS - Date & Time Date: 02/04/17 Time: 18:27
[2017-02-04] MEDS: (Lantus) Insulin Glargine, Recombinant SC SCH (22:18)
[2017-02-05] MEDS: Albuterol-Ipratrop 3 mg / 0.5 (3 ml) UD INH SCH ×3 (00:06→19:10)
[2017-02-05 00:49] VITALS: O2SAT 100
[2017-02-05] MEDS: HYDROmorphone 1 mg/ml ISec IVP PRN ×4 (00:57→18:39)
[2017-02-05] MEDS: Levothyroxine 50 MCG TAB PO SCH (07:04)
[2017-02-05] MEDS: (Novolog) Insulin Aspart, Recombinant 100 u/ml 10 ml vial SC SCH ×4 (08:04→21:30)
[2017-02-05] MEDS ORDERED: EPOETIN ALFA 4,000 UNIT/ML ML Dialysis IV SCH (10:00)
[2017-02-05] MEDS ORDERED: Epoetin Alfa Dialysis 3000 UNIT/ML Inj IV SCH (10:00)
[2017-02-05] MEDS: Calcium Carbonate 500 mg Chewable Antacid Tab PO SCH ×2 (10:00→20:55)
--- NOTE | 2017-02-05 11:51 | CP.PCM.PN ---
Subjective - Date & Time of Evaluation Date of Evaluation: 02/05/17 Time of Evaluation: 10:15 - Subjective Subjective: Seen on dialysis. Appears comfortable Objective - Vital Signs/Intake and Output Vital Signs (last 24 hours): Temp Pulse Resp BP Pulse Ox 97.5 F L 83 16 117/64 100 02/05/17 09:50 02/05/17 10:21 02/05/17 10:21 02/05/17 10:50 02/05/17 09:50 - Medications Medications: Current Medications Albuterol/Ipratropium (Duoneb 3 Mg/0.5 Mg (3 Ml) Ud) 3 ml INH RQ8 [facility] Last Admin: 02/05/17 07:35 Dose: 3 ml Amlodipine Besylate (Norvasc) 10 mg PO DAILY [facility] Last Admin: 02/04/17 09:42 Dose: 10 mg Aspirin (Aspirin Chewable) 81 mg PO DAILY [facility] Last Admin: 02/04/17 09:41 Dose: 81 mg Calcitriol (Rocaltrol) 0.25 mcg PO DAILY [facility] Last Admin: 02/04/17 09:42 Dose: 0.25 mcg Calcium Carbonate (Tums) 1,000 mg PO BID [facility] Last Admin: 02/04/17 17:35 Dose: 1,000 mg Carvedilol (Coreg) 25 mg PO BID [facility] Last Admin: 02/04/17 17:36 Dose: Not Given Clopidogrel Bisulfate (Plavix) 75 mg PO DAILY [facility] Last Admin: 02/04/17 09:41 Dose: 75 mg Docusate Sodium (Colace) 100 mg PO BID PRN PRN Reason: Constipation Epoetin Tom (Procrit) 3,000 unit IV TTS [facility] Last Admin: 02/05/17 11:33 Dose: 3,000 unit Gabapentin (Neurontin) 100 mg PO BID [facility] Last Admin: 02/04/17 17:35 Dose: 100 mg Heparin Sodium (Porcine) (Heparin) 4,700 units IVP TTS [facility] Stop: 02/19/17 10:01 Hydralazine HCl (Apresoline) 100 mg PO BID [facility] Last Admin: 02/04/17 17:36 Dose: Not Given Hydromorphone HCl (Dilaudid) 1 mg IVP Q6H PRN PRN Reason: Pain, severe (8-10) Last Admin: 02/05/17 07:05 Dose: 1 mg Insulin Aspart (Novolog) 0 unit SC [facility] PRN Reason: Protocol Last Admin: 02/05/17 08:04 Dose: 3 unit Insulin Glargine (Lantus) 22 unit SC [facility] Last Admin: 02/04/17 22:18 Dose: 22 units Isosorbide Mononitrate (Imdur) 60 mg PO DAILY [facility] Last Admin: 02/04/17 09:42 Dose: 60 mg Levothyroxine Sodium (Synthroid) 50 mcg PO DAILY@0630 [facility] Last Admin: 02/05/17 07:04 Dose: 50 mcg Multivitamins/Minerals (Therapeutic-M Tab) 1 tab PO DAILY [facility] Last Admin: 02/04/17 09:42 Dose: 1 tab Pantoprazole Sodium (Protonix Ec Tab) 40 mg PO DAILY [facility] Last Admin: 02/04/17 09:41 Dose: 40 mg Ranolazine (Ranexa) 500 mg PO DAILY [facility] Last Admin: 02/04/17 09:42 Dose: 500 mg Rosuvastatin Calcium (Crestor) 10 mg PO [facility] Last Admin: 02/04/17 22:18 Dose: 10 mg Sertraline HCl (Zoloft) 50 mg PO DAILY [facility] Last Admin: 02/04/17 09:42 Dose: 50 mg - Respiratory Exam Additional comments: Lungs clear - Cardiovascular Exam Cardiovascular Exam: REGULAR RHYTHM - Extremities Exam Additional comments: B/L BKA Assessment and Plan - Assessment and Plan (Free Text) Assessment: ESRD HTN CAD IDDM Plan: Continue HD per schedule Continue with with Epogen 3000 U
--- NOTE | 2017-02-05 11:56 | CP.PCM.PN ---
Subjective - Date & Time of Evaluation Date of Evaluation: 02/05/17 Time of Evaluation: 11:54 - Subjective Subjective: pt c/o of pain rcarotid area Objective - Vital Signs/Intake and Output Vital Signs (last 24 hours): Temp Pulse Resp BP Pulse Ox 97.5 F L 83 16 117/64 100 02/05/17 09:50 02/05/17 10:21 02/05/17 10:21 02/05/17 10:50 02/05/17 09:50 - Medications Medications: Current Medications Albuterol/Ipratropium (Duoneb 3 Mg/0.5 Mg (3 Ml) Ud) 3 ml INH RQ8 [facility] Last Admin: 02/05/17 07:35 Dose: 3 ml Amlodipine Besylate (Norvasc) 10 mg PO DAILY [facility] Last Admin: 02/04/17 09:42 Dose: 10 mg Aspirin (Aspirin Chewable) 81 mg PO DAILY [facility] Last Admin: 02/04/17 09:41 Dose: 81 mg Calcitriol (Rocaltrol) 0.25 mcg PO DAILY [facility] Last Admin: 02/04/17 09:42 Dose: 0.25 mcg Calcium Carbonate (Tums) 1,000 mg PO BID [facility] Last Admin: 02/04/17 17:35 Dose: 1,000 mg Carvedilol (Coreg) 25 mg PO BID [facility] Last Admin: 02/04/17 17:36 Dose: Not Given Clopidogrel Bisulfate (Plavix) 75 mg PO DAILY [facility] Last Admin: 02/04/17 09:41 Dose: 75 mg Docusate Sodium (Colace) 100 mg PO BID PRN PRN Reason: Constipation Epoetin Tom (Procrit) 3,000 unit IV TTS [facility] Last Admin: 02/05/17 11:33 Dose: 3,000 unit Gabapentin (Neurontin) 100 mg PO BID [facility] Last Admin: 02/04/17 17:35 Dose: 100 mg Heparin Sodium (Porcine) (Heparin) 4,700 units IVP TTS [facility] Stop: 02/19/17 10:01 Hydralazine HCl (Apresoline) 100 mg PO BID [facility] Last Admin: 02/04/17 17:36 Dose: Not Given Hydromorphone HCl (Dilaudid) 1 mg IVP Q6H PRN PRN Reason: Pain, severe (8-10) Last Admin: 02/05/17 07:05 Dose: 1 mg Insulin Aspart (Novolog) 0 unit SC [facility] PRN Reason: Protocol Last Admin: 02/05/17 08:04 Dose: 3 unit Insulin Glargine (Lantus) 22 unit SC [facility] Last Admin: 02/04/17 22:18 Dose: 22 units Isosorbide Mononitrate (Imdur) 60 mg PO DAILY [facility] Last Admin: 02/04/17 09:42 Dose: 60 mg Levothyroxine Sodium (Synthroid) 50 mcg PO DAILY@0630 [facility] Last Admin: 02/05/17 07:04 Dose: 50 mcg Multivitamins/Minerals (Therapeutic-M Tab) 1 tab PO DAILY [facility] Last Admin: 02/04/17 09:42 Dose: 1 tab Pantoprazole Sodium (Protonix Ec Tab) 40 mg PO DAILY [facility] Last Admin: 02/04/17 09:41 Dose: 40 mg Ranolazine (Ranexa) 500 mg PO DAILY [facility] Last Admin: 02/04/17 09:42 Dose: 500 mg Rosuvastatin Calcium (Crestor) 10 mg PO [facility] Last Admin: 02/04/17 22:18 Dose: 10 mg Sertraline HCl (Zoloft) 50 mg PO DAILY [facility] Last Admin: 02/04/17 09:42 Dose: 50 mg - Constitutional Appears: Non-toxic - ENT Exam ENT Exam: Mucous Membranes Moist - Neck Exam Neck Exam: Full ROM, Tenderness (r side neck carotid area tender) Additional comments: r carotid area tender - Respiratory Exam Respiratory Exam: Decreased Breath Sounds - Cardiovascular Exam Cardiovascular Exam: REGULAR RHYTHM - GI/Abdominal Exam GI & Abdominal Exam: Normal Bowel Sounds - Rectal Exam Rectal Exam: NORMAL INSPECTION - Extremities Exam Additional comments: s/p AKA BILATERAL - Back Exam Back Exam: CVA tenderness (L) - Neurological Exam Neurological Exam: Oriented x3 - Psychiatric Exam Psychiatric exam: Normal Affect - Skin Skin Exam: Normal Color, Pallor Assessment and Plan - Assessment and Plan (Free Text) Assessment: PAIN R CAROTID DMIDBETER HTN ESRF COPD CAD Plan: CONT PER ORDERS CHECK ULTASOUND
[2017-02-05] MEDS: Pantoprazole 40 mg EC Tab PO SCH (13:38)
[2017-02-05] MEDS: Multivitamin With Minerals Tab PO SCH (13:38)
[2017-02-05] MEDS: Ranolazine 500 mg Extended Release Tablets PO SCH (13:38)
--- NOTE | 2017-02-05 16:26 | VASCLAB ---
PROCEDURE: HISTORY: severe pain r carotid COMPARISON: None available. TECHNIQUE: Grayscale and duplex Doppler evaluation of the cervical carotid and vertebral arteries were performed. The common carotid, carotid bifurcations and cervical Internal Carotid Artery (ICA) and proximal External Carotid Artery (ECA) were evaluated. The vertebral arteries were evaluated for gross patency and flow direction. Report prepared by Preston Murillo, BS, RVT FINDINGS: RIGHT CAROTID ARTERIES: 1. Common Carotid Artery: No significant focal plaque formation of the right common carotid artery. Maximum Peak Systolic velocity: 114 cm/sec: End-diastolic velocity 22 cm/sec. 2. Carotid Bifurcation: plaque formation. Maximum Peak Systolic velocity: 85 cm/sec: End-diastolic velocity 18 cm/sec. 3. Internal Carotid Artery: Plaque description: 3.1. Proximal Segment: Peak systolic velocity 102 cm/sec: End-diastolic velocity 30 cm/sec - % stenosis 0-15% 3.2. Middle Segment: Peak systolic velocity 85 cm/sec: End-diastolic velocity 27 cm/sec - % stenosis 0-15% 3.3. Distal Segment: Peak systolic velocity 115 cm/sec: End-diastolic velocity 37 cm/sec - % stenosis 0-15% 4. External Carotid Artery: No significant focal plaque formation. Peak systolic velocity 146 cm/sec 5. ICA/CCA Ratio: 1.0 LEFT CAROTID ARTERIES: 1. Common Carotid Artery: No significant focal plaque formation of the left common carotid artery. Maximum Peak Systolic velocity: 166 cm/sec: End-diastolic velocity 11 cm/sec. 2. Carotid Bifurcation: plaque formation. Maximum Peak Systolic velocity: 79 cm/sec: End-diastolic velocity 19 cm/sec. 3. Internal Carotid Artery: Plaque description: 3.1. Proximal Segment: Peak systolic velocity 68 cm/sec: End-diastolic velocity 25 cm/sec - % stenosis 0-15% 3.2. Middle Segment: Peak systolic velocity 56 cm/sec: End-diastolic velocity 19 cm/sec - % stenosis 0-15% 3.3. Distal Segment: Peak systolic velocity 75 cm/sec: End-diastolic velocity 25 cm/sec - % stenosis 0-15% 4. External Carotid Artery: No significant focal plaque formation. Peak systolic velocity 117 cm/sec 5. ICA/CCA Ratio: 0.5 VERTEBRAL ARTERIES: 1. Right Vertebral Artery: The right vertebral artery flow direction is antegrade. 2. Left Vertebral Artery: The left vertebral artery flow direction is antegrade. OTHER FINDINGS: 1. Right Brachial Blood pressure: mmHg. 2. Left Brachial Blood pressure: mmHg. IMPRESSION: RIGHT: Duplex scan does not suggest hemodynamically significant stenosis of the right extracranial carotid arteries. LEFT: Duplex scan does not suggest hemodynamically significant stenosis of the left extracranial carotid arteries.
--- NOTE | 2017-02-05 17:12 | CP.PCM.PN ---
Subjective - Date & Time of Evaluation Date of Evaluation: 02/05/17 Time of Evaluation: 15:00 - Subjective Subjective: Pt seen and evaluated after HD , denies any chest pain, sob, n/v BS improved and stable Objective - Vital Signs/Intake and Output Vital Signs (last 24 hours): Temp Pulse Resp BP Pulse Ox 98.8 F 86 20 144/78 100 02/05/17 16:00 02/05/17 16:00 02/05/17 16:00 02/05/17 16:00 02/05/17 16:00 Intake and Output: 02/05/17 02/05/17 06:59 18:59 Intake Total 120 Balance 120 - Medications Medications: Current Medications Albuterol/Ipratropium (Duoneb 3 Mg/0.5 Mg (3 Ml) Ud) 3 ml INH RQ8 [facility] Last Admin: 02/05/17 07:35 Dose: 3 ml Amlodipine Besylate (Norvasc) 10 mg PO DAILY [facility] Last Admin: 02/05/17 13:38 Dose: 10 mg Aspirin (Aspirin Chewable) 81 mg PO DAILY [facility] Last Admin: 02/05/17 13:38 Dose: 81 mg Calcitriol (Rocaltrol) 0.25 mcg PO DAILY [facility] Last Admin: 02/05/17 13:53 Dose: 0.25 mcg Calcium Carbonate (Tums) 1,000 mg PO BID [facility] Last Admin: 02/05/17 10:00 Dose: Not Given Carvedilol (Coreg) 25 mg PO BID [facility] Last Admin: 02/05/17 10:19 Dose: Not Given Clopidogrel Bisulfate (Plavix) 75 mg PO DAILY [facility] Last Admin: 02/05/17 13:38 Dose: 75 mg Docusate Sodium (Colace) 100 mg PO BID PRN PRN Reason: Constipation Epoetin Tom (Procrit) 3,000 unit IV TTS [facility] Last Admin: 02/05/17 11:33 Dose: 3,000 unit Gabapentin (Neurontin) 100 mg PO BID [facility] Last Admin: 02/05/17 10:17 Dose: Not Given Heparin Sodium (Porcine) (Heparin) 4,700 units IVP TTS [facility] Stop: 02/16/17 10:01 Last Admin: 02/05/17 12:31 Dose: 4,700 units Hydralazine HCl (Apresoline) 100 mg PO BID [facility] Last Admin: 02/05/17 10:00 Dose: Not Given Hydromorphone HCl (Dilaudid) 1 mg IVP Q6H PRN PRN Reason: Pain, severe (8-10) Last Admin: 02/05/17 13:39 Dose: 1 mg Insulin Aspart (Novolog) 0 unit SC [facility] PRN Reason: Protocol Last Admin: 02/05/17 13:53 Dose: 2 unit Insulin Glargine (Lantus) 22 unit SC [facility] Last Admin: 02/04/17 22:18 Dose: 22 units Isosorbide Mononitrate (Imdur) 60 mg PO DAILY [facility] Last Admin: 02/05/17 13:38 Dose: 60 mg Levothyroxine Sodium (Synthroid) 50 mcg PO DAILY@0630 [facility] Last Admin: 02/05/17 07:04 Dose: 50 mcg Multivitamins/Minerals (Therapeutic-M Tab) 1 tab PO DAILY [facility] Last Admin: 02/05/17 13:38 Dose: 1 tab Pantoprazole Sodium (Protonix Ec Tab) 40 mg PO DAILY [facility] Last Admin: 02/05/17 13:38 Dose: 40 mg Ranolazine (Ranexa) 500 mg PO DAILY [facility] Last Admin: 02/05/17 13:38 Dose: 500 mg Rosuvastatin Calcium (Crestor) 10 mg PO HS [facility] Last Admin: 02/04/17 22:18 Dose: 10 mg Sertraline HCl (Zoloft) 50 mg PO DAILY [facility] Last Admin: 02/05/17 13:37 Dose: 50 mg Assessment and Plan - Assessment and Plan (Free Text) Assessment: A/P 36 YR OLD MALE ADMITTED FOR HYPERGLYCEMIA , FLUID OVERLOAD BS STABLE SEEN BY DR. BELL, CLEARED FOR DISCHARGE AFTER HD D/W [facility] WHO AGREES WITH PLAN CM/SW WILL ARRANGE TRANSPORTATION
[2017-02-05] MEDS: (Lantus) Insulin Glargine, Recombinant SC SCH (21:50)
[2017-02-06] MEDS: Albuterol-Ipratrop 3 mg / 0.5 (3 ml) UD INH SCH ×2 (00:04→07:26)
[2017-02-06] MEDS: HYDROmorphone 1 mg/ml ISec IVP PRN (05:38)
[2017-02-06] MEDS: Levothyroxine 50 MCG TAB PO SCH (05:42)
[2017-02-06] MEDS: (Novolog) Insulin Aspart, Recombinant 100 u/ml 10 ml vial SC SCH (08:03)
[2017-02-06 08:11] VITALS: BP 132/61; PULSE 81; RESP 18; TEMP 98.1
--- NOTE | 2017-02-06 17:50 | PCM.HF ---
Heart Failure Core Measure - Heart Failure Ejection Fraction: 40 % or Greater RAÚL Inhibitor Prescribed: No Contraindication/Reason for not providing: ESRDD Beta-Andrew Prescribed: Carvedilol Angiotensin II Receptor Andrew Prescribed: No Contraindication/Reason for not providing: ESRD AnticoagulationTherapy for Atrial Fibrillation/Atrialflutter: No Contraindication/Reason for not providing: NO HX OF AFIB Aldosterone Antagonist Prescribed: No Contraindication/Reason for not providing: ESRD Hydralazine Nitrate Prescribed: Yes Implantable Cardioverter Defibrillator Therapy: No Contraindication/Reason for not providing: EF>45 Cardiac Resynchronization Therapy Prescribed: No Contraindication/Reason for not providing: EF>45 - Follow up Will be discharged to: Home Follow Up Date (must be within 7 days from discharge): 02/08/17 Follow Up Time: 09:00
== END 2017-02-06 10:21 | disposition home or self-care (01) | DRG 130 ==
LOC: C.ER 13:36 → C.9E 16:23 → C.6T 18:44
PROVIDERS: ADMIT Internal Medicine; ATTEND Internal Medicine
PROC: 5A1D60Z (ICD-10-PCS; principal; 2017-02-05)
DX: E11.65 Type 2 diabetes mellitus with hyperglycemia (principal); I13.2 Hypertensive heart and chronic kidney disease with heart failure and with stage 5 chronic kidney disease, or end stage renal disease; N18.6 End stage renal disease; E11.22 Type 2 diabetes mellitus with diabetic chronic kidney disease; I48.91 Unspecified atrial fibrillation; J44.9 Chronic obstructive pulmonary disease, unspecified; I50.9 Heart failure, unspecified; E11.51 Type 2 diabetes mellitus with diabetic peripheral angiopathy without gangrene; E03.9 Hypothyroidism, unspecified; E78.00 Pure hypercholesterolemia, unspecified; F02.80 Dementia in other diseases classified elsewhere, unspecified severity, without behavioral disturbance, psychotic disturbance, mood disturbance, and anxiety; G30.9 Alzheimer's disease, unspecified; H54.8 Legal blindness, as defined in USA; I25.10 Atherosclerotic heart disease of native coronary artery without angina pectoris; Z79.4 Long term (current) use of insulin; Z90.49 Acquired absence of other specified parts of digestive tract; Z95.1 Presence of aortocoronary bypass graft; Z95.5 Presence of coronary angioplasty implant and graft; Z99.2 Dependence on renal dialysis; Z89.512 Acquired absence of left leg below knee; Z89.511 Acquired absence of right leg below knee; F41.8 Other specified anxiety disorders; Z91.81 History of falling

== ENCOUNTER 2017-02-09 17:35 | Inpatient (IN) | payer OTHER ==
[2017-02-09 17:36] VITALS: PULSE 66; BMI 20.7
[2017-02-09 18:41] LABS: BASO # 0.1 K/uL (0.0-0.2); BASO % 0.4 % (0.0-2.0); EOS # 0.3 K/uL (0.0-0.7); EOS % 1.9 % (0.0-4.0); HEMATOCRIT 28.9 % (35.0-51.0); LYMPH # 1.7 K/uL (1.0-4.3); LYMPH % 13.1 % (20.0-40.0); MEAN CELL VOLUME 86.9 fL (80.0-94.0); MEAN CORPUSCULAR HEMOGLOBIN 27.8 pg (27.0-31.0); MEAN CORPUSCULAR HGB CONC 32.1 g/dL (33.0-37.0); MEAN PLATELET VOLUME 8.4 fL (7.2-11.7); MONO # 0.7 K/uL (0.0-0.8); MONO % 4.9 % (0.0-10.0); RED CELL DISTRIBUTION WIDTH 17.3 % (11.5-14.5); WHITE BLOOD COUNT 13.3 K/uL (4.8-10.8)
[2017-02-09 18:46] LABS: CHLORIDE 95 mmol/L (98-107); SODIUM 137 mmol/L (132-148)
[2017-02-09 18:47] LABS: POTASSIUM 3.6 mmol/L (3.6-5.2)
[2017-02-09 18:48] LABS: GFR AFRICAN-AMERICAN 46
[2017-02-09 18:49] LABS: ALB/GLOB RATIO 1.1 (1.0-2.1); ALKALINE PHOSPHATASE 145 U/L (38-126); ALT/SGPT 9 U/L (21-72); AST/SGOT 18 U/L (17-59); BILIRUBIN,TOTAL 0.6 mg/dL (0.2-1.3); BLOOD UREA NITROGEN 10 mg/dL (9-20); CALCIUM 9.1 mg/dl (8.6-10.4); CARBON DIOXIDE 31 mmol/L (22-30); GLUCOSE,RANDOM 394 mg/dL (75-110); TOTAL PROTEIN 7.5 g/dL (6.3-8.3)
--- NOTE | 2017-02-09 18:52 | C.PDOC ---
History Of Present Illness 36 y/o M c PMHx CAD, ESRD on HD TThS, DM p/w chest pain x 30 minutes. Patient states that while at dialysis, he began feeling pain on the R side of the chest where his dialysis catheter is and radiates to the R sided neck. He also reports L parasternal pain about 30 minutes prior to arrival that is still present. Denies fever, cough, vomiting. Time Seen by Provider: 02/09/17 17:55 Chief Complaint (Nursing): Chest Pain Past Medical History Vital Signs: Last Vital Signs Temp 98.3 F 02/09/17 17:40 Pulse 95 H 02/09/17 17:40 Resp 20 02/09/17 17:40 BP 130/67 02/09/17 17:40 Pulse Ox 100 02/09/17 19:07 - Medical History PMH: Alzheimer's Disease, Anemia, Anxiety, Arthritis, Asthma, Atrial Fibrillation, Bronchitis, CAD, Cardia Arrhythmia, CHF, COPD, CVA, Depression, Diabetes, Deep Vein Thrombosis, Gastrointestinal Ulcer, Gall Bladder Disease, HTN, Hypercholesterolemia, Hypothyroidism, End Stage Renal Disease, Chronic Kidney Disease, Seizures Denies: Hyperthyroidism, Sexually Transmitted Disease Surgical History: CABG (12/2009), Cholecystectomy (2011), Coronary Stent - [facility] Procedures ABDOMINAL WALL SINOGRAM (12/31/13) C.A.T. SCAN OF ABDOMEN (10/31/13) CENTRAL VENOUS CATHETER PLACEMENT WITH GUIDANCE (02/10/15) DILATE R ANT TIB ART W DRUG-ELUT INTRALUM, PERC (08/12/15) DILATION OF LEFT FEMORAL ARTERY, PERCUTANEOUS APPROACH (07/04/16) DILATION OF RIGHT FEMORAL ARTERY, PERCUTANEOUS APPROACH (08/12/15) DILATION OF RIGHT POPLITEAL ARTERY, PERCUTANEOUS APPROACH (08/12/15) DX ULTRASOUND-HEART (01/05/13) ENTERAL INFUSION OF CONCENTRATED NUT. SUBSTANCES (06/28/13) EXCIS DEBRIDE OF WOUND, INFECT, OR BURN (08/03/14) EXTIRPATION OF MATTER FROM L FEM ART, PERC APPROACH (07/04/16) EXTIRPATION OF MATTER FROM R FEM ART, PERC APPROACH (08/12/15) EXTIRPATION OF MATTER FROM R POPL ART, PERC APPROACH (08/12/15) FLUOROSCOPY OF L LOW EXTREM ART USING L OSM CONTRAST (12/11/15) FLUOROSCOPY OF R LOW EXTREM ART USING L OSM CONTRAST (08/12/15) FREE SKIN GRAFT NEC (08/03/14) HEAD SOFT TISS X-RAY NEC (04/15/13) HEMODIALYSIS (04/28/15) INCIS W REM OF FORIEGN BODY OR DEV FROM SKIN & SUBCUT TISSUE (08/08/13) INSERTION OF INFUSION DEV INTO R SUBCLAV VEIN, PERC APPROACH (01/19/16) INTRODUCE OF OTH THROMBOLYTIC INTO PERIPH ART, PERC APPROACH (08/12/15) LAPAROSCOPIC CHOLECYSTECTOMY (09/21/13) LOC EXC LES METATAR/TAR (06/01/14) PACKED CELL TRANSFUSION (06/01/14) PERCUTAN LIVER ASPIRAT (12/31/13) PERFORMANCE OF URINARY FILTRATION, MULTIPLE (02/03/17) PERFORMANCE OF URINARY FILTRATION, SINGLE (12/18/16) SKIN & SUBQ INCISION NEC (10/24/14) TETANUS TOXOID ADMINIST (06/13/14) VENOUS CATHETERIZATION FOR RENAL DIALYSIS (08/08/13) VENOUS CATHETERIZATION NEC (04/30/13) Family History: States: Unknown Family Hx - Social History Hx Tobacco Use: No Hx Alcohol Use: No Hx Substance Use: No - Immunization History Hx Tetanus Toxoid Vaccination: Yes Hx Influenza Vaccination: No Hx Pneumococcal Vaccination: Yes Review Of Systems Except As Marked, All Systems Reviewed And Found Negative. Constitutional: Negative for: Fever Cardiovascular: Positive for: Chest Pain Respiratory: Negative for: Shortness of Breath Physical Exam - Physical Exam Additional Physical Exam Comments: Constitutional: No acute distress. Head: Normocephalic. Atraumatic. Eyes: PERRL. ENT: Moist mucous membranes. Neck: Supple. No bruit or thrill. Cardiovascular: Regular rate. Radial pulse 2+ bilaterally. Chest: No tenderness. R sided catheter. Respiratory: Clear to auscultation bilaterally. GI: Soft. Nontender. Nondistended. Back: No CVA tenderness. Musculoskeletal: No tenderness or swelling of extremities. Bilateral leg amputations. Skin: No rash. Neurologic: Alert, no focal deficit. ED Course And Treatment - Laboratory Results Result Diagrams: 02/09/17 18:31 02/09/17 18:31 O2 Sat by Pulse Oximetry: 100 Medical Decision Making Medical Decision Making: EKG shows NSR, large voltages with repol abnormality, no change from previous. CXR no acute disease. Aspirin administered. Accepted by Dr. Li for cardiac observation. Disposition - Disposition Disposition: HOSPITALIZED Disposition Time: 19:03 Condition: FAIR - POA Core Measure Indicators: Chest Pain - Clinical Impression Clinical Impression: Chest pain, rule out acute myocardial infarction
[2017-02-09] MEDS ORDERED: HYDROmorphone 0.5 mg/0.5 ml ISec IVP PRN (23:20)
--- NOTE | 2017-02-10 08:12 | RAD ---
HISTORY: chest pain COMPARISON: 01/29/2017 FINDINGS: LUNGS: Status post median sternotomy. Lines and tubes in stable position. Moderate venous congestion. Patchy left basilar airspace opacity with question trace left pleural effusion. PLEURA: As above. CARDIOVASCULAR: Status post median sternotomy. Mild cardiomegaly. OSSEOUS STRUCTURES: Degenerative changes in the spine and shoulders. VISUALIZED UPPER ABDOMEN: Normal. OTHER FINDINGS: None. IMPRESSION: Status post median sternotomy. Lines and tubes in stable position. Moderate venous congestion. Patchy left basilar airspace opacity with question trace left pleural effusion.
--- NOTE | 2017-02-10 10:37 | CP.PCM.HP ---
History of Present Illness - History of Present Illness History of Present Illness: CHEST PAIN R SIDE CATH SITE AND R SIDE NECK COUGH SOB Present on Admission - Present on Admission Any Indicators Present on Admission: Yes Review of Systems - Review of Systems Systems not reviewed;Unavailable: Acuity of Condition - Constitutional Constitutional: As Per HPI - EENT Eyes: As Per HPI Ears: As Per HPI Nose/Mouth/Throat: As Per HPI - Cardiovascular Cardiovascular: Chest Pain at Rest, Chest Pain with Activity, Dyspnea - Respiratory Respiratory: Cough, Dyspnea - Gastrointestinal Gastrointestinal: As Per HPI - Genitourinary Genitourinary: As Per HPI - Musculoskeletal Musculoskeletal: Back Pain - Integumentary Integumentary: As Per HPI - Neurological Neurological: Loss of Vision - Psychiatric Psychiatric: Depression - Endocrine Endocrine: Polydipsia, Polyphagia Past Patient History - Infectious Disease Hx of Infectious Diseases: None - Tetanus Immunizations Tetanus Immunization: >10 years Ago - Past Medical History & Family History Past Medical History?: Yes - Past Social History Smoking Status: Never Smoked Chewing Tobacco Use: No Cigar Use: No Alcohol: None Home Situation {Lives}: With Family Domestic Violence: Negative - CARDIAC Hx Atrial Fibrillation: Yes Hx Cardia Arrhythmia: Yes Hx Congestive Heart Failure: Yes Hx Hypercholesterolemia: Yes Hx Hypertension: Yes - PULMONARY Hx Asthma: Yes Hx Bronchitis: Yes Hx Chronic Obstructive Pulmonary Disease (COPD): Yes - NEUROLOGICAL Hx Alzheimer's Disease: Yes Hx Seizures: Yes - HEENT Hx HEENT Problems: Yes Hx Blind: Yes (legally blind) Hx Cataracts: Yes - RENAL Hx Chronic Kidney Disease: Yes - ENDOCRINE/METABOLIC Hx Hyperthyroidism: No Hx Hypothyroidism: Yes - HEMATOLOGICAL/ONCOLOGICAL Hx Anemia: Yes - INTEGUMENTARY Hx Dermatological Problems: No - MUSCULOSKELETAL/RHEUMATOLOGICAL Hx Arthritis: Yes Hx Falls: Yes - GASTROINTESTINAL Hx Gall Bladder Disease: Yes - GENITOURINARY/GYNECOLOGICAL Hx Sexually Transmitted Disorders: No - PSYCHIATRIC Hx Anxiety: Yes Hx Depression: Yes Hx Substance Use: No - SURGICAL HISTORY Hx Cholecystectomy: Yes (2011) 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/2009) Hx Coronary Stent: Yes - ANESTHESIA Hx Anesthesia: Yes Hx Anesthesia Reactions: No Hx Malignant Hyperthermia: No Has any member of the family had a problem w/ anesthesia?: No Meds Allergies/Adverse Reactions: Allergies Allergy/AdvReac Type Severity Reaction Status Date / Time acetaminophen [From Percocet] Allergy RASH Verified 02/03/17 13:47 atenolol Allergy RASH Verified 02/03/17 13:47 digoxin Allergy RASH Verified 02/03/17 13:47 milk Allergy ITCHING Verified 02/03/17 13:47 morphine Allergy ITCHING Verified 02/03/17 13:47 oxycodone HCl [From Percocet] Allergy RASH Verified 02/03/17 13:47 Physical Exam - Constitutional Appears: Non-toxic - Head Exam Head Exam: NORMAL INSPECTION - Eye Exam Additional comments: LEGALY BLIND - ENT Exam ENT Exam: Mucous Membranes Moist - Neck Exam Additional comments: PAIN R SIDE - Respiratory Exam Respiratory Exam: Decreased Breath Sounds, Prolonged Expiratory Phase - Cardiovascular Exam Cardiovascular Exam: REGULAR RHYTHM - GI/Abdominal Exam GI & Abdominal Exam: Normal Bowel Sounds - Rectal Exam Rectal Exam: NORMAL INSPECTION - Extremities Exam Additional comments: S/P AKA - Back Exam Back exam: CVA tenderness (L) - Neurological Exam Neurological exam: Oriented x3 - Psychiatric Exam Psychiatric exam: Normal Affect - Skin Skin Exam: Normal Color, Pallor Results - Vital Signs Recent Vital Signs: Last Vital Signs Temp 98.0 F 02/10/17 07:50 Pulse 74 02/10/17 07:50 Resp 20 02/10/17 07:50 BP 181/80 H 02/10/17 09:35 Pulse Ox 100 02/10/17 07:50 - Labs Result Diagrams: 02/09/17 18:31 02/09/17 18:31 Labs: Laboratory Results - last 24 hr 02/10/17 06:44 POC Glucose (mg/dL) 433 H* Assessment & Plan - Assessment and Plan (Free Text) Assessment: CHEST PAIN AT SITE OF CATH R SIDE NECK PAIN DMID ESRF HTN COUGH SOB LECOCYTOSIS POSIBLE PMUMONITIS - Date & Time Date: 02/10/17 Time: 10:42
[2017-02-10] MEDS: (Novolin R) Insulin Human Regular 100 units/ml vial SC SCH ×3 (12:53→21:47)
[2017-02-10] MEDS: (Lantus) Insulin Glargine, Recombinant SC SCH (12:53)
[2017-02-10] MEDS: cefTRIAXone IV 1 gm in Dextros 50 ML IVPB SCH (12:54)
--- NOTE | 2017-02-10 15:56 | CP.PCM.CON ---
History of Present Illness - History of Present Illness History of Present Illness: SURGERY CONSULT NOTE FOR DR. MEDLEY 36M presents to [facility] for chest pain/Neck pain. Surgery consulted for pain on the dialysis catheter site in the right IJ. This catheter was placed two years ago and has been functioning well since. Patient states within the past week he has been feeling soreness in the right side of his neck and on the tunnel portion of the tube of the permacath. He states at dialysis treatment yesterday, he had a sharp neck pain that radiated to his chest, so he was sent to [facility]. PMH: CKD, DM, legally blind PSH: B/L BKA, Non-functional AVF, Right IJ permacath Social: denies tobacco/substance abuse Allergies: acetaminophen, atenolol, digoxin, milk, morphine, oxycodone Past Patient History - Infectious Disease Hx of Infectious Diseases: None - Tetanus Immunizations Tetanus Immunization: >10 years Ago - Past Medical History & Family History Past Medical History?: Yes - Past Social History Smoking Status: Never Smoked Chewing Tobacco Use: No Cigar Use: No Alcohol: None Home Situation {Lives}: With Family Domestic Violence: Negative - CARDIAC Hx Atrial Fibrillation: Yes Hx Cardia Arrhythmia: Yes Hx Congestive Heart Failure: Yes Hx Hypercholesterolemia: Yes Hx Hypertension: Yes - PULMONARY Hx Asthma: Yes Hx Bronchitis: Yes Hx Chronic Obstructive Pulmonary Disease (COPD): Yes - NEUROLOGICAL Hx Alzheimer's Disease: Yes Hx Seizures: Yes - HEENT Hx HEENT Problems: Yes Hx Blind: Yes (legally blind) Hx Cataracts: Yes - RENAL Hx Chronic Kidney Disease: Yes - ENDOCRINE/METABOLIC Hx Hyperthyroidism: No Hx Hypothyroidism: Yes - HEMATOLOGICAL/ONCOLOGICAL Hx Anemia: Yes - INTEGUMENTARY Hx Dermatological Problems: No - MUSCULOSKELETAL/RHEUMATOLOGICAL Hx Arthritis: Yes Hx Falls: Yes - GASTROINTESTINAL Hx Gall Bladder Disease: Yes - GENITOURINARY/GYNECOLOGICAL Hx Sexually Transmitted Disorders: No - PSYCHIATRIC Hx Anxiety: Yes Hx Depression: Yes Hx Substance Use: No - SURGICAL HISTORY Hx Cholecystectomy: Yes (2011) 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/2009) Hx Coronary Stent: Yes - ANESTHESIA Hx Anesthesia: Yes Hx Anesthesia Reactions: No Hx Malignant Hyperthermia: No Has any member of the family had a problem w/ anesthesia?: No Meds Allergies/Adverse Reactions: Allergies Allergy/AdvReac Type Severity Reaction Status Date / Time acetaminophen [From Percocet] Allergy RASH Verified 02/03/17 13:47 atenolol Allergy RASH Verified 02/03/17 13:47 digoxin Allergy RASH Verified 02/03/17 13:47 milk Allergy ITCHING Verified 02/03/17 13:47 morphine Allergy ITCHING Verified 02/03/17 13:47 oxycodone HCl [From Percocet] Allergy RASH Verified 02/03/17 13:47 - Medications Medications: Current Medications Amlodipine Besylate (Norvasc) 10 mg PO DAILY [facility] Last Admin: 02/10/17 09:36 Dose: 10 mg Carvedilol (Coreg) 25 mg PO BID [facility] Last Admin: 02/10/17 09:35 Dose: 25 mg Hydralazine HCl (Apresoline) 100 mg PO BID [facility] Last Admin: 02/10/17 09:35 Dose: 100 mg Hydromorphone HCl (Dilaudid) 1 mg IVP Q6H PRN PRN Reason: Pain, moderate (4-7) Last Admin: 02/10/17 14:33 Dose: 1 mg Ceftriaxone Sodium (Rocephin Iv 1 Gm Duplex) 50 mls @ 100 mls/hr IVPB DAILY [facility] Last Admin: 02/10/17 12:54 Dose: 100 mls/hr Insulin Glargine (Lantus) 18 unit SC DAILY [facility] Last Admin: 02/10/17 12:53 Dose: 18 u Insulin Human Regular (Novolin R) 0 unit SC ACHS [facility] PRN Reason: Protocol Last Admin: 02/10/17 12:53 Dose: 10 unit Sertraline HCl (Zoloft) 50 mg PO DAILY [facility] Last Admin: 02/10/17 09:35 Dose: 50 mg Physical Exam - Constitutional Appears: Non-toxic, No Acute Distress - Head Exam Head Exam: ATRAUMATIC - Eye Exam Additional comments: legally blind - Neck Exam Additional comments: permacath in place - no inflammation, no signs of infection, no seroma/hematoma/ superficial abscess - pain on palpation of the tunneled tube, no pain adjacent to the tube - Respiratory Exam Respiratory Exam: Clear to Auscultation Bilateral, NORMAL BREATHING PATTERN - Cardiovascular Exam Cardiovascular Exam: REGULAR RHYTHM, +S1 - GI/Abdominal Exam GI & Abdominal Exam: Soft. absent: Guarding, Rebound, Tenderness - Extremities Exam Additional comments: b/l BKA - Neurological Exam Neurological exam: Alert, Oriented x3 - Psychiatric Exam Psychiatric exam: Normal Affect, Normal Mood - Skin Skin Exam: Dry, Intact, Normal Color, Warm Results - Vital Signs Recent Vital Signs: Last Vital Signs Temp 98.0 F 02/10/17 07:50 Pulse 74 02/10/17 07:50 Resp 20 02/10/17 07:50 BP 181/80 H 02/10/17 09:35 Pulse Ox 100 02/10/17 07:50 - Labs Result Diagrams: 02/09/17 18:31 02/09/17 18:31 Labs: Laboratory Results - last 24 hr 02/10/17 11:48 POC Glucose (mg/dL) 424 H* Assessment & Plan - Assessment and Plan (Free Text) Assessment: 36M with hx of diabetes, ESRD on dialysis with right IJ permacath, presents with pain at permacath site. no signs of infection Plan: - Continue medical management - Permacath site is clean dry, no signs of infection - No surgical intervention at this time - Patient has a hx of vitamin D - Will give dose of Vitamin D Discussed with Dr. Pratibha Muñoz, PGY1
[2017-02-11] MEDS: (Novolin R) Insulin Human Regular 100 units/ml vial SC SCH ×4 (09:18→21:52)
[2017-02-11] MEDS: (Lantus) Insulin Glargine, Recombinant SC SCH (09:19)
[2017-02-11] MEDS: cefTRIAXone IV 1 gm in Dextros 50 ML IVPB SCH (10:06)
--- NOTE | 2017-02-11 13:17 | CP.PCM.CON ---
History of Present Illness - History of Present Illness History of Present Illness: 36 y/o male with ESRd on HD, CAD/CABG,IDDM,HTN,PVD is admitted for c/o chest pain. Pt had also reported feeling pain @ the dialysis catheter site Pts dialysis schedule id TTS & receives dialysis via Rt IJ permanent cath. Past Patient History - Infectious Disease Hx of Infectious Diseases: None - Tetanus Immunizations Tetanus Immunization: >10 years Ago - Past Medical History & Family History Past Medical History?: Yes - Past Social History Smoking Status: Never Smoked Chewing Tobacco Use: No Cigar Use: No Alcohol: None Home Situation {Lives}: With Family Domestic Violence: Negative - CARDIAC Hx Atrial Fibrillation: Yes Hx Cardia Arrhythmia: Yes Hx Congestive Heart Failure: Yes Hx Hypercholesterolemia: Yes Hx Hypertension: Yes - PULMONARY Hx Asthma: Yes Hx Bronchitis: Yes Hx Chronic Obstructive Pulmonary Disease (COPD): Yes - NEUROLOGICAL Hx Alzheimer's Disease: Yes Hx Seizures: Yes - HEENT Hx HEENT Problems: Yes Hx Blind: Yes (legally blind) Hx Cataracts: Yes - RENAL Hx Chronic Kidney Disease: Yes - ENDOCRINE/METABOLIC Hx Hyperthyroidism: No Hx Hypothyroidism: Yes - HEMATOLOGICAL/ONCOLOGICAL Hx Anemia: Yes - INTEGUMENTARY Hx Dermatological Problems: No - MUSCULOSKELETAL/RHEUMATOLOGICAL Hx Arthritis: Yes Hx Falls: Yes - GASTROINTESTINAL Hx Gall Bladder Disease: Yes - GENITOURINARY/GYNECOLOGICAL Hx Sexually Transmitted Disorders: No - PSYCHIATRIC Hx Anxiety: Yes Hx Depression: Yes Hx Substance Use: No - SURGICAL HISTORY Hx Cholecystectomy: Yes (2011) 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/2009) Hx Coronary Stent: Yes - ANESTHESIA Hx Anesthesia: Yes Hx Anesthesia Reactions: No Hx Malignant Hyperthermia: No Has any member of the family had a problem w/ anesthesia?: No Meds Allergies/Adverse Reactions: Allergies Allergy/AdvReac Type Severity Reaction Status Date / Time acetaminophen [From Percocet] Allergy RASH Verified 02/03/17 13:47 atenolol Allergy RASH Verified 02/03/17 13:47 digoxin Allergy RASH Verified 02/03/17 13:47 milk Allergy ITCHING Verified 02/03/17 13:47 morphine Allergy ITCHING Verified 02/03/17 13:47 oxycodone HCl [From Percocet] Allergy RASH Verified 02/03/17 13:47 - Medications Medications: Current Medications Amlodipine Besylate (Norvasc) 10 mg PO DAILY [facility] Last Admin: 02/11/17 11:16 Dose: 10 mg Carvedilol (Coreg) 25 mg PO BID [facility] Last Admin: 02/11/17 11:16 Dose: 25 mg Heparin Sodium (Porcine) (Heparin) 5,000 units SC Q12 [facility] Last Admin: 02/11/17 10:07 Dose: 5,000 units Hydralazine HCl (Apresoline) 100 mg PO BID [facility] Hydromorphone HCl (Dilaudid) 1 mg IVP Q6H PRN PRN Reason: Pain, moderate (4-7) Last Admin: 02/11/17 09:15 Dose: 1 mg Ceftriaxone Sodium (Rocephin Iv 1 Gm Duplex) 50 mls @ 100 mls/hr IVPB DAILY [facility] Last Admin: 02/11/17 10:06 Dose: 100 mls/hr Insulin Glargine (Lantus) 18 unit SC DAILY [facility] Last Admin: 02/11/17 09:19 Dose: 18 u Insulin Human Regular (Novolin R) 0 unit SC ACHS [facility] PRN Reason: Protocol Last Admin: 02/11/17 09:18 Dose: 4 unit Sertraline HCl (Zoloft) 50 mg PO DAILY [facility] Last Admin: 02/11/17 10:06 Dose: 50 mg Physical Exam - Constitutional Appears: In Acute Distress - Head Exam Head Exam: ATRAUMATIC, NORMOCEPHALIC - Eye Exam Additional comments: No icterus. Pt is blind - ENT Exam ENT Exam: Mucous Membranes Moist - Respiratory Exam Additional comments: Lungs clear - Cardiovascular Exam Cardiovascular Exam: REGULAR RHYTHM - GI/Abdominal Exam GI & Abdominal Exam: Soft - Extremities Exam Additional comments: B/L BKA Results - Vital Signs Recent Vital Signs: Last Vital Signs Temp 97.8 F 02/11/17 07:49 Pulse 67 02/11/17 07:49 Resp 20 02/11/17 07:49 BP 125/59 L 02/11/17 11:16 Pulse Ox 100 02/11/17 07:49 - Labs Result Diagrams: 02/09/17 18:31 02/09/17 18:31 Labs: Laboratory Results - last 24 hr 02/10/17 02/10/17 02/11/17 16:30 21:13 06:16 POC Glucose (mg/dL) 229 H 198 H 288 H 02/11/17 12:18 POC Glucose (mg/dL) 171 H Assessment & Plan - Assessment and Plan (Free Text) Assessment: ESRD Chest pain, Hx/o CAD IDDM PVD Plan: Continue HD per schedule Labs reviewed
--- NOTE | 2017-02-11 17:33 | CP.PCM.PN ---
Subjective - Date & Time of Evaluation Date of Evaluation: 02/11/17 Time of Evaluation: 17:30 - Subjective Subjective: pt still has pain r side neck seen by mae Objective - Vital Signs/Intake and Output Vital Signs (last 24 hours): Temp Pulse Resp BP Pulse Ox 98.5 F 67 20 128/69 100 02/11/17 15:00 02/11/17 15:00 02/11/17 15:00 02/11/17 15:00 02/11/17 15:00 Intake and Output: 02/11/17 02/11/17 06:59 18:59 Intake Total 480 Balance 480 - Medications Medications: Current Medications Amlodipine Besylate (Norvasc) 10 mg PO DAILY [facility] Last Admin: 02/11/17 11:16 Dose: 10 mg Carvedilol (Coreg) 25 mg PO BID [facility] Last Admin: 02/11/17 11:16 Dose: 25 mg Epoetin Tom (Procrit) 2,000 u IV TTS [facility] Epoetin Tom (Procrit) 3,000 unit IV TTS [facility] Heparin Sodium (Porcine) (Heparin) 5,000 units SC Q12 [facility] Last Admin: 02/11/17 10:07 Dose: 5,000 units Hydralazine HCl (Apresoline) 100 mg PO BID [facility] Hydromorphone HCl (Dilaudid) 1 mg IVP Q6H PRN PRN Reason: Pain, moderate (4-7) Last Admin: 02/11/17 15:48 Dose: 1 mg Ceftriaxone Sodium (Rocephin Iv 1 Gm Duplex) 50 mls @ 100 mls/hr IVPB DAILY [facility] Last Admin: 02/11/17 10:06 Dose: 100 mls/hr Insulin Glargine (Lantus) 18 unit SC DAILY [facility] Last Admin: 02/11/17 09:19 Dose: 18 u Insulin Human Regular (Novolin R) 0 unit SC ACHS [facility] PRN Reason: Protocol Last Admin: 02/11/17 16:56 Dose: Not Given Sertraline HCl (Zoloft) 50 mg PO DAILY [facility] Last Admin: 02/11/17 10:06 Dose: 50 mg - Constitutional Appears: Non-toxic - Head Exam Head Exam: NORMAL INSPECTION - ENT Exam ENT Exam: Mucous Membranes Moist - Neck Exam Neck Exam: Full ROM, Tenderness (r side ) Additional comments: rside - Respiratory Exam Respiratory Exam: Decreased Breath Sounds - Cardiovascular Exam Cardiovascular Exam: REGULAR RHYTHM - GI/Abdominal Exam GI & Abdominal Exam: Normal Bowel Sounds - Rectal Exam Rectal Exam: NORMAL INSPECTION - Back Exam Back Exam: CVA tenderness (L) - Neurological Exam Neurological Exam: Oriented x3 - Psychiatric Exam Psychiatric exam: Normal Mood - Skin Skin Exam: Pallor Assessment and Plan - Assessment and Plan (Free Text) Assessment: dm improving pain neck posile muskloskeletal esrf htn cont same treatment Plan: as per orders
[2017-02-12] MEDS: (Novolin R) Insulin Human Regular 100 units/ml vial SC SCH ×4 (08:45→22:08)
[2017-02-12] MEDS ORDERED: Epoetin Alfa Dialysis 2000 U/ML Inj IV SCH (10:00)
[2017-02-12] MEDS ORDERED: Epoetin Alfa Dialysis 3000 UNIT/ML Inj IV SCH (10:00)
[2017-02-12] MEDS: cefTRIAXone IV 1 gm in Dextros 50 ML IVPB SCH (10:00)
--- NOTE | 2017-02-12 10:51 | CP.PCM.PN ---
Subjective - Date & Time of Evaluation Date of Evaluation: 02/12/17 Time of Evaluation: 10:48 - Subjective Subjective: has pain at site of cath but cleared by susanaan geting dialysis now will go home after this to cont all med same and add pain med ass dmid esrf htn copd cad Objective - Vital Signs/Intake and Output Vital Signs (last 24 hours): Temp Pulse Resp BP Pulse Ox 98.3 F 77 16 156/80 H 100 02/12/17 10:05 02/12/17 10:05 02/12/17 10:05 02/12/17 10:47 02/12/17 10:05 Intake and Output: 02/12/17 02/12/17 06:59 18:59 Intake Total 120 Balance 120 - Medications Medications: Current Medications Amlodipine Besylate (Norvasc) 10 mg PO DAILY [facility] Last Admin: 02/11/17 11:16 Dose: 10 mg Carvedilol (Coreg) 25 mg PO BID [facility] Last Admin: 02/11/17 17:54 Dose: 25 mg Epoetin Tom (Procrit) 2,000 u IV TTS [facility] Epoetin Tom (Procrit) 3,000 unit IV TTS [facility] Heparin Sodium (Porcine) (Heparin) 5,000 units SC Q12 [facility] Last Admin: 02/11/17 21:50 Dose: 5,000 units Hydralazine HCl (Apresoline) 100 mg PO BID [facility] Last Admin: 02/11/17 17:53 Dose: Not Given Hydromorphone HCl (Dilaudid) 1 mg IVP Q6H PRN PRN Reason: Pain, moderate (4-7) Last Admin: 02/12/17 09:47 Dose: 1 mg Ceftriaxone Sodium (Rocephin Iv 1 Gm Duplex) 50 mls @ 100 mls/hr IVPB DAILY [facility] Last Admin: 02/11/17 10:06 Dose: 100 mls/hr Insulin Glargine (Lantus) 18 unit SC DAILY [facility] Last Admin: 02/11/17 09:19 Dose: 18 u Insulin Human Regular (Novolin R) 0 unit SC ACHS [facility] PRN Reason: Protocol Last Admin: 02/12/17 08:45 Dose: 3 unit Sertraline HCl (Zoloft) 50 mg PO DAILY [facility] Last Admin: 02/11/17 10:06 Dose: 50 mg
[2017-02-12] MEDS: (Lantus) Insulin Glargine, Recombinant SC SCH (11:10)
[2017-02-12 11:17] LABS: HEMATOCRIT 28.3 % (35.0-51.0); MEAN CELL VOLUME 87.7 fL (80.0-94.0); MEAN CORPUSCULAR HEMOGLOBIN 27.2 pg (27.0-31.0); MEAN PLATELET VOLUME 8.4 fL (7.2-11.7); RED CELL DISTRIBUTION WIDTH 18.3 % (11.5-14.5); WHITE BLOOD COUNT 11.3 K/uL (4.8-10.8)
--- NOTE | 2017-02-12 11:54 | CP.PCM.PN ---
Subjective - Date & Time of Evaluation Date of Evaluation: 02/12/17 Time of Evaluation: 11:00 - Subjective Subjective: Currently on dialysis Comfortable Objective - Vital Signs/Intake and Output Vital Signs (last 24 hours): Temp Pulse Resp BP Pulse Ox 97.9 F 69 20 166/68 H 100 02/12/17 11:49 02/12/17 11:49 02/12/17 11:49 02/12/17 10:58 02/12/17 11:49 Intake and Output: 02/12/17 02/12/17 06:59 18:59 Intake Total 120 Balance 120 - Medications Medications: Current Medications Amlodipine Besylate (Norvasc) 10 mg PO DAILY [facility] Last Admin: 02/12/17 11:10 Dose: Not Given Carvedilol (Coreg) 25 mg PO BID [facility] Last Admin: 02/12/17 11:10 Dose: Not Given Epoetin Tom (Procrit) 2,000 u IV TTS [facility] Epoetin Tom (Procrit) 3,000 unit IV TTS [facility] Heparin Sodium (Porcine) (Heparin) 5,000 units SC Q12 [facility] Last Admin: 02/12/17 11:10 Dose: Not Given Hydralazine HCl (Apresoline) 100 mg PO BID [facility] Last Admin: 02/12/17 11:10 Dose: Not Given Hydromorphone HCl (Dilaudid) 1 mg IVP Q6H PRN PRN Reason: Pain, moderate (4-7) Last Admin: 02/12/17 09:47 Dose: 1 mg Ceftriaxone Sodium (Rocephin Iv 1 Gm Duplex) 50 mls @ 100 mls/hr IVPB DAILY [facility] Last Admin: 02/11/17 10:06 Dose: 100 mls/hr Insulin Glargine (Lantus) 18 unit SC DAILY [facility] Last Admin: 02/12/17 11:10 Dose: Not Given Insulin Human Regular (Novolin R) 0 unit SC ACHS [facility] PRN Reason: Protocol Last Admin: 02/12/17 08:45 Dose: 3 unit Sertraline HCl (Zoloft) 50 mg PO DAILY [facility] Last Admin: 02/11/17 10:06 Dose: 50 mg - Labs Labs: 02/12/17 11:12 - Respiratory Exam Additional comments: Lungs clear - Cardiovascular Exam Cardiovascular Exam: REGULAR RHYTHM - Extremities Exam Additional comments: B/L BKA Assessment and Plan - Assessment and Plan (Free Text) Assessment: ESRD Anemia HTN CAD/CABD IDDM Plan: Stable on HD Increase Epogen dose, Iron profile
--- NOTE | 2017-02-12 12:34 | PCM.HF ---
Heart Failure Core Measure - Heart Failure Ejection Fraction: 40 % or Greater RAÚL Inhibitor Prescribed: No Contraindication/Reason for not providing: ESRD Beta-Andrew Prescribed: Carvedilol Angiotensin II Receptor Andrew Prescribed: No Contraindication/Reason for not providing: ESRD AnticoagulationTherapy for Atrial Fibrillation/Atrialflutter: No Contraindication/Reason for not providing: no afib Aldosterone Antagonist Prescribed: No Contraindication/Reason for not providing: ESRD Hydralazine Nitrate Prescribed: No Contraindication/Reason for not providing: EF >40% Implantable Cardioverter Defibrillator Therapy: No Contraindication/Reason for not providing: EF > 40% Cardiac Resynchronization Therapy Prescribed: No Contraindication/Reason for not providing: not indicated - Follow up Will be discharged to: Home Follow Up Date (must be within 7 days from discharge): 02/18/17 Follow Up Time: 09:00
[2017-02-12 16:56] VITALS: RESP 18; TEMP 98.4; O2SAT 99
--- NOTE | 2017-02-12 17:31 | CP.PCM.PN ---
Subjective - Date & Time of Evaluation Date of Evaluation: 02/12/17 Time of Evaluation: 11:00 - Subjective Subjective: Alert, awake, still with some pain on the right neck area, no big swelling noted. Objective - Vital Signs/Intake and Output Vital Signs (last 24 hours): Temp Pulse Resp BP Pulse Ox 98.4 F 67 18 123/71 99 02/12/17 16:00 02/12/17 16:00 02/12/17 16:00 02/12/17 16:00 02/12/17 16:00 Intake and Output: 02/12/17 02/12/17 06:59 18:59 Intake Total 120 Balance 120 - Medications Medications: Current Medications Amlodipine Besylate (Norvasc) 10 mg PO DAILY [facility] Last Admin: 02/12/17 11:10 Dose: Not Given Carvedilol (Coreg) 25 mg PO BID [facility] Last Admin: 02/12/17 11:10 Dose: Not Given Epoetin Tom (Procrit) 2,000 u IV TTS [facility] Last Admin: 02/12/17 13:10 Dose: 2,000 u Epoetin Tom (Procrit) 3,000 unit IV TTS [facility] Last Admin: 02/12/17 13:10 Dose: 3,000 unit Heparin Sodium (Porcine) (Heparin) 5,000 units SC Q12 [facility] Last Admin: 02/12/17 11:10 Dose: Not Given Heparin Sodium (Porcine) (Heparin) 4,700 units IVP TTS [facility] Stop: 02/16/17 10:01 Last Admin: 02/12/17 13:12 Dose: 4,700 units Hydralazine HCl (Apresoline) 100 mg PO BID [facility] Last Admin: 02/12/17 11:10 Dose: Not Given Hydromorphone HCl (Dilaudid) 1 mg IVP Q6H PRN PRN Reason: Pain, moderate (4-7) Last Admin: 02/12/17 17:06 Dose: 1 mg Ceftriaxone Sodium (Rocephin Iv 1 Gm Duplex) 50 mls @ 100 mls/hr IVPB DAILY [facility] Last Admin: 02/12/17 10:00 Dose: Not Given Insulin Glargine (Lantus) 18 unit SC DAILY [facility] Last Admin: 02/12/17 11:10 Dose: Not Given Insulin Human Regular (Novolin R) 0 unit SC ACHS [facility] PRN Reason: Protocol Last Admin: 02/12/17 17:15 Dose: 4 unit Sertraline HCl (Zoloft) 50 mg PO DAILY [facility] Last Admin: 02/12/17 10:00 Dose: Not Given - Labs Labs: 02/12/17 11:12 Assessment and Plan - Assessment and Plan (Free Text) Assessment: Patient is seen and examined. s/p hemo dialysis today. No acute complaints. D/W DR Li, discharge plan for today after dinner. Continue with present meds. Cleared by surgical team , no intervention planned. Hemodialysis tolerated well.
[2017-02-12 18:05] VITALS: BP 113/65; PULSE 68
--- NOTE | 2017-02-13 11:59 | CARD ---
APPROVED REPORT EKG Measurement Heart [id number] <Conclusion> Normal sinus rhythm Left ventricular hypertrophy with repolarization abnormality ST segment depression and t wave inversions lateral and high lateral leads Abnormal ECG
[2017-02-17] MEDS ORDERED: Ergocalciferol 50,000 Intl Units Cap PO SCH (10:00)
== END 2017-02-12 22:09 | disposition home or self-care (01) | DRG 143 ==
LOC: C.ER 17:35 → C.9E 19:05 → C.5T 22:55 → OBSVTOIN 02-10 10:30
PROVIDERS: ADMIT Internal Medicine; ATTEND Internal Medicine
PROC: 5A1D60Z (ICD-10-PCS; principal; 2017-02-12)
DX: R07.89 Other chest pain (principal); I25.10 Atherosclerotic heart disease of native coronary artery without angina pectoris; I13.2 Hypertensive heart and chronic kidney disease with heart failure and with stage 5 chronic kidney disease, or end stage renal disease; E11.22 Type 2 diabetes mellitus with diabetic chronic kidney disease; N18.6 End stage renal disease; E11.51 Type 2 diabetes mellitus with diabetic peripheral angiopathy without gangrene; I50.9 Heart failure, unspecified; J44.9 Chronic obstructive pulmonary disease, unspecified; M54.2 Cervicalgia; D64.9 Anemia, unspecified; E03.9 Hypothyroidism, unspecified; E78.00 Pure hypercholesterolemia, unspecified; F02.80 Dementia in other diseases classified elsewhere, unspecified severity, without behavioral disturbance, psychotic disturbance, mood disturbance, and anxiety; G30.9 Alzheimer's disease, unspecified; H54.8 Legal blindness, as defined in USA; I48.91 Unspecified atrial fibrillation; Z79.4 Long term (current) use of insulin; Z86.73 Personal history of transient ischemic attack (TIA), and cerebral infarction without residual deficits; Z87.11 Personal history of peptic ulcer disease; Z89.512 Acquired absence of left leg below knee; Z90.49 Acquired absence of other specified parts of digestive tract; Z95.5 Presence of coronary angioplasty implant and graft; Z95.1 Presence of aortocoronary bypass graft; Z99.2 Dependence on renal dialysis

== ENCOUNTER 2017-02-20 20:34 | Inpatient (IN) | payer OTHER ==
[2017-02-20 20:34] VITALS: PULSE 66; BMI 20.7
--- NOTE | 2017-02-20 20:59 | C.PDOC ---
History Of Present Illness A 36 y/o male with a Hx of diabetes, c/o SOB, body aches, and feeling a subjective fever that began yesterday. Pt denies N/V/D, sick contact, recent travels, chest pain, palpitations, diaphoresis, lightheadedness, dizziness, URI symptoms, or any other complaints. Time Seen by Provider: 02/20/17 20:57 Chief Complaint (Nursing): High Blood Sugar History Per: Patient History/Exam Limitations: no limitations Onset/Duration Of Symptoms: Days Current Symptoms Are (Timing): Still Present Severity: Mild Associated Infectious Symptoms: denies: Cough, Sore Throat, Sinus Congestion Recent travel outside of the [place]: No Additional History Per: Patient Past Medical History Reviewed: Historical Data, Nursing Documentation, Vital Signs Vital Signs: Last Vital Signs Temp 98.2 F 02/20/17 20:53 Pulse 78 02/20/17 22:39 Resp 15 02/20/17 22:39 BP 197/58 H 02/20/17 22:39 Pulse Ox 100 02/20/17 22:54 - Medical History PMH: Alzheimer's Disease, Anemia, Anxiety, Arthritis, Asthma, Atrial Fibrillation, Bronchitis, CAD, Cardia Arrhythmia, CHF, COPD, CVA, Depression, Diabetes, Deep Vein Thrombosis, Gastrointestinal Ulcer, Gall Bladder Disease, HTN, Hypercholesterolemia, Hypothyroidism, End Stage Renal Disease, Chronic Kidney Disease, Seizures Denies: Hyperthyroidism, Sexually Transmitted Disease Surgical History: CABG (12/2009), Cholecystectomy (2011), Coronary Stent - [facility] Procedures ABDOMINAL WALL SINOGRAM (12/31/13) C.A.T. SCAN OF ABDOMEN (10/31/13) CENTRAL VENOUS CATHETER PLACEMENT WITH GUIDANCE (02/10/15) DILATE R ANT TIB ART W DRUG-ELUT INTRALUM, PERC (08/12/15) DILATION OF LEFT FEMORAL ARTERY, PERCUTANEOUS APPROACH (07/04/16) DILATION OF RIGHT FEMORAL ARTERY, PERCUTANEOUS APPROACH (08/12/15) DILATION OF RIGHT POPLITEAL ARTERY, PERCUTANEOUS APPROACH (08/12/15) DX ULTRASOUND-HEART (01/05/13) ENTERAL INFUSION OF CONCENTRATED NUT. SUBSTANCES (06/28/13) EXCIS DEBRIDE OF WOUND, INFECT, OR BURN (08/03/14) EXTIRPATION OF MATTER FROM L FEM ART, PERC APPROACH (07/04/16) EXTIRPATION OF MATTER FROM R FEM ART, PERC APPROACH (08/12/15) EXTIRPATION OF MATTER FROM R POPL ART, PERC APPROACH (08/12/15) FLUOROSCOPY OF L LOW EXTREM ART USING L OSM CONTRAST (08/12/15) FLUOROSCOPY OF R LOW EXTREM ART USING L OSM CONTRAST (08/12/15) FREE SKIN GRAFT NEC (08/03/14) HEAD SOFT TISS X-RAY NEC (04/15/13) HEMODIALYSIS (04/28/15) INCIS W REM OF FORIEGN BODY OR DEV FROM SKIN & SUBCUT TISSUE (08/08/13) INSERTION OF INFUSION DEV INTO R SUBCLAV VEIN, PERC APPROACH (01/19/16) INTRODUCE OF OTH THROMBOLYTIC INTO PERIPH ART, PERC APPROACH (08/12/15) LAPAROSCOPIC CHOLECYSTECTOMY (09/21/13) LOC EXC LES METATAR/TAR (06/01/14) PACKED CELL TRANSFUSION (06/01/14) PERCUTAN LIVER ASPIRAT (12/31/13) PERFORMANCE OF URINARY FILTRATION, MULTIPLE (02/10/17) PERFORMANCE OF URINARY FILTRATION, SINGLE (12/18/16) SKIN & SUBQ INCISION NEC (10/24/14) TETANUS TOXOID ADMINIST (06/13/14) VENOUS CATHETERIZATION FOR RENAL DIALYSIS (08/08/13) VENOUS CATHETERIZATION NEC (04/30/13) Family History: States: Unknown Family Hx - Social History Hx Tobacco Use: No Hx Alcohol Use: No Hx Substance Use: No - Immunization History Hx Tetanus Toxoid Vaccination: Yes Hx Influenza Vaccination: No Hx Pneumococcal Vaccination: Yes Review Of Systems Except As Marked, All Systems Reviewed And Found Negative. Constitutional: Positive for: Fever, Other (Body aches). Negative for: Sweats ENT: Negative for: Nose Discharge, Nose Congestion, Throat Pain Cardiovascular: Negative for: Chest Pain, Palpitations, Light Headedness Respiratory: Positive for: Shortness of Breath. Negative for: Cough Gastrointestinal: Negative for: Nausea, Vomiting, Diarrhea Neurological: Negative for: Dizziness Physical Exam - Physical Exam Appears: Non-toxic, In Acute Distress (Mild distress to SOB) Skin: Warm, Dry Head: Atraumatic, Normacephalic Eye(s): bilateral: Normal Inspection Oral Mucosa: Moist Chest: Symmetrical Cardiovascular: Rhythm Regular, No Murmur Respiratory: No Accessory Muscle Use, Rales (Bilateral rales at the base), No Rhonchi, No Wheezing Gastrointestinal/Abdominal: Soft, No Tenderness Back: Normal Inspection, No CVA Tenderness Extremity: Other (Below the knee amputations, bilaterally) Neurological/Psych: Oriented x3, Normal Speech, Normal Cognition, Other (No focal deficit) ED Course And Treatment - Laboratory Results Result Diagrams: 02/20/17 21:28 02/20/17 21:28 O2 Sat by Pulse Oximetry: 100 (RA) Pulse Ox Interpretation: Normal - Radiology CXR: Interpreted by Me, Viewed By Me CXR Interpretation: Yes: Other (pulm congestion) Progress Note: 2250H Patient persisted to be alert and conscious. IV insulin given. 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 Galindo to call back for dialysis. Medical Decision Making Medical Decision Making: Impression: A 36 y/o male c/o SOB, body aches, and feeling a subjective fever that began yesterday. Plans: -EKG -Blood labs -CXR -IV fluids -Reassess Disposition Discussed With : Sybil Li Doctor Will See Patient In The: Hospital Counseled Patient/Family Regarding: Diagnosis - Disposition Referrals: Farooq De Los Santos MD [Staff Provider] - Disposition: HOSPITALIZED Disposition Time: 23:50 Condition: STABLE - POA Present On Arrival: None - Clinical Impression Clinical Impression: Hyperglycemia, ESRD on hemodialysis, Diabetic hyperosmolar non-ketotic state - Scribe Statement The provider has reviewed the documentation as recorded by the Scribe Marcy owens All medical record entries made by the Scribe were at my direction and personally dictated by me. I have reviewed the chart and agree that the record accurately reflects my personal performance of the history, physical exam, medical decision making, and the department course for this patient. I have also personally directed, reviewed, and agree with the discharge instructions and disposition.
[2017-02-20] MEDS ORDERED: hydrALAZINE 12.5 mg Tab PO STA (21:10)
[2017-02-20] MEDS ORDERED: (Novolin R) Insulin Human Regular 100 units/ml vial IV STA ×2 (21:18→22:14)
[2017-02-20 21:32] LABS: EOS # 0.3 K/uL (0.0-0.7); EOS % 2.4 % (0.0-4.0); LYMPH # 1.2 K/uL (1.0-4.3); LYMPH % 10.2 % (20.0-40.0); MEAN CORPUSCULAR HGB CONC 30.5 g/dL (33.0-37.0); MEAN PLATELET VOLUME 9.3 fL (7.2-11.7); MONO # 0.7 K/uL (0.0-0.8); MONO % 5.7 % (0.0-10.0); NEUT # 9.8 K/uL (1.8-7.0); NEUT % 81.7 % (50.0-75.0); RBC 3.23 Mil/uL (4.40-5.90); RED CELL DISTRIBUTION WIDTH 19.3 % (11.5-14.5)
[2017-02-20 21:45] LABS: ALBUMIN 3.4 g/dL (3.5-5.0)
[2017-02-20 21:48] LABS: ALT/SGPT 12 U/L (21-72); AST/SGOT 14 U/L (17-59); BLOOD UREA NITROGEN 78 mg/dL (9-20); GFR AFRICAN-AMERICAN 9; GFR NON-AFRICAN AMERICAN 7
[2017-02-20 21:59] LABS: MEAN CELL VOLUME 91.7 fL (80.0-94.0)
[2017-02-20 22:15] LABS: B-TYPE NATRIURETIC PEPTIDE 35200 pg/mL (0-450)
[2017-02-20 22:18] LABS: CALCIUM 7.9 mg/dl (8.6-10.4)
[2017-02-20] MEDS ORDERED: (Novolin R) Insulin Human Regular 100 units/ml vial ONE ×3 (22:24→23:52)
[2017-02-20] MEDS ORDERED: (Novolin R) Insulin Human Regular 100 units/ml vial IV ONE (23:46)
[2017-02-20] MEDS ORDERED: (Lantus) Insulin Glargine, Recombinant SC STA (23:46)
[2017-02-20] MEDS ORDERED: (Novolog) Insulin Aspart, Recombinant 100 u/ml 10 ml vial SC PRN (23:48)
[2017-02-20] MEDS ORDERED: (Lantus) Insulin Glargine, Recombinant SC ONE (23:53)
[2017-02-20 23:54] LABS: VENOUS BLOOD GAS BASE EXCESS -7.7 mmol/L (0.0-2.0); VENOUS BLOOD GAS PCO2 55 mmHg (40-60); VENOUS BLOOD GAS PO2 53 mm/Hg (30-55); VENOUS BLOOD PH 7.19 (7.32-7.43)
[2017-02-21] MEDS ORDERED: HYDROmorphone 1 mg/ml ISec IVP PRN
[2017-02-21] MEDS: (Novolin R) Insulin Human Regular 100 units/ml vial SC SCH ×4 (08:43→22:41)
[2017-02-21] MEDS: (Novolog) Insulin Aspart, Recombinant 100 u/ml 10 ml vial SC SCH ×4 (08:44→22:42)
--- NOTE | 2017-02-21 09:27 | RAD ---
PROCEDURE: CHEST RADIOGRAPH, 1 VIEW HISTORY: Shortness of breath COMPARISON: 02/09/2017 FINDINGS: LUNGS: Moderate to severe venous congestion with patchy left basilar airspace opacity with associated small left pleural effusion. Lines and tubes in stable position. PLEURA: As above. CARDIOVASCULAR: Status post median sternotomy. Cardiomegaly. OSSEOUS STRUCTURES: No significant abnormalities. VISUALIZED UPPER ABDOMEN: Normal. OTHER FINDINGS: None. IMPRESSION: Moderate to severe venous congestion with patchy left basilar airspace opacity with associated small left pleural effusion. Lines and tubes in stable position.
[2017-02-21] MEDS ORDERED: Epoetin Alfa 4000 UNIT/ML Inj SC SCH (10:00)
[2017-02-21] MEDS ORDERED: Levothyroxine 50 MCG TAB PO SCH (10:00)
[2017-02-21] MEDS: Ranolazine 500 mg Extended Release Tablets PO SCH ×2 (10:36→19:44)
[2017-02-21] MEDS: Pantoprazole 40 mg EC Tab PO SCH (10:36)
[2017-02-21] MEDS: Multivitamin With Minerals Tab PO SCH (10:37)
[2017-02-21 11:41] LABS: BASO # 0.1 K/uL (0.0-0.2); BASO % 0.5 % (0.0-2.0); HEMOGLOBIN 8.7 g/dL (12.0-18.0); MEAN PLATELET VOLUME 9.4 fL (7.2-11.7); NRBC % 0.1 % (0.0-2.0)
--- NOTE | 2017-02-21 11:43 | CP.PCM.CON ---
History of Present Illness - History of Present Illness History of Present Illness: 36 y/o male with ESRD on maintenance HD,CAD/CABG,IDDM with complications, HLD, PVD presented to ER for c/o not feeling well & SOB. Pts dialysis schedule is TTS & had missed dialysis on Saturday In ER Pt was noted to fluid overloaded, hypoxic & CXR showed severe congestion Multiple Hosp admissions for CP,SOB,uncotrolled diabetes Pt is states that he feels better but still feels SOB. Past Patient History - Infectious Disease Hx of Infectious Diseases: None - Tetanus Immunizations Tetanus Immunization: >10 years Ago - Past Medical History & Family History Past Medical History?: Yes - Past Social History Smoking Status: Never Smoked - CARDIAC Hx Cardiac Disorders: Yes Hx Atrial Fibrillation: Yes Hx Cardia Arrhythmia: Yes Hx Congestive Heart Failure: Yes Hx Hypercholesterolemia: Yes Hx Hypertension: Yes - PULMONARY Hx Respiratory Disorders: Yes Hx Asthma: Yes Hx Bronchitis: Yes Hx Chronic Obstructive Pulmonary Disease (COPD): Yes Hx Pneumonia: Yes - NEUROLOGICAL Hx Neurological Disorder: Yes Hx Alzheimer's Disease: Yes Hx Seizures: Yes - HEENT Hx HEENT Problems: Yes Hx Blind: Yes (legally blind) Hx Cataracts: Yes - RENAL Hx Chronic Kidney Disease: Yes - ENDOCRINE/METABOLIC Hx Endocrine Disorders: Yes Hx Diabetes Mellitus Type 2: Yes Hx Hypothyroidism: Yes - HEMATOLOGICAL/ONCOLOGICAL Hx Blood Disorders: Yes Hx Anemia: Yes - INTEGUMENTARY Hx Dermatological Problems: No - MUSCULOSKELETAL/RHEUMATOLOGICAL Hx Falls: No - GASTROINTESTINAL Hx Gastrointestinal Disorders: Yes Hx Gall Bladder Disease: Yes - GENITOURINARY/GYNECOLOGICAL Hx Genitourinary Disorders: No Hx Sexually Transmitted Disorders: No - PSYCHIATRIC Hx Psychophysiologic Disorder: Yes Hx Anxiety: Yes Hx Depression: Yes Hx Substance Use: No - SURGICAL HISTORY Hx Surgeries: Yes Hx Amputation: Yes Hx Cholecystectomy: Yes (2011) 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/2009) Hx Coronary Stent: Yes - ANESTHESIA Hx Anesthesia: Yes Hx Anesthesia Reactions: No Hx Malignant Hyperthermia: No Meds Allergies/Adverse Reactions: Allergies Allergy/AdvReac Type Severity Reaction Status Date / Time acetaminophen [From Percocet] Allergy RASH Verified 02/03/17 13:47 atenolol Allergy RASH Verified 02/03/17 13:47 digoxin Allergy RASH Verified 02/03/17 13:47 milk Allergy ITCHING Verified 02/03/17 13:47 morphine Allergy ITCHING Verified 02/03/17 13:47 oxycodone HCl [From Percocet] Allergy RASH Verified 02/03/17 13:47 - Medications Medications: Current Medications Amlodipine Besylate (Norvasc) 10 mg PO DAILY [facility] Aspirin (Aspirin Chewable) 81 mg PO DAILY [facility] Last Admin: 02/21/17 10:36 Dose: 81 mg Calcitriol (Rocaltrol) 0.25 mcg PO DAILY [facility] Last Admin: 02/21/17 10:37 Dose: 0.25 mcg Calcium Carbonate (Oscal) 1,000 mg PO BID [facility] Last Admin: 02/21/17 10:36 Dose: 1,000 mg Carvedilol (Coreg) 25 mg PO BID [facility] Clopidogrel Bisulfate (Plavix) 75 mg PO DAILY [facility] Last Admin: 02/21/17 10:36 Dose: 75 mg Docusate Sodium (Colace) 100 mg PO DAILY PRN PRN Reason: constipation Epoetin Tom (Procrit) 8,000 unit SC TTS [facility] Gabapentin (Neurontin) 100 mg PO BID [facility] Last Admin: 02/21/17 10:36 Dose: 100 mg Heparin Sodium (Porcine) (Heparin) 5,000 units SC Q12 [facility] Last Admin: 02/21/17 10:46 Dose: 5,000 units Hydralazine HCl (Apresoline) 100 mg PO Q8 [facility] Last Admin: 02/21/17 07:33 Dose: 100 mg Hydromorphone HCl (Dilaudid) 1 mg IVP Q6 PRN PRN Reason: Pain, moderate (4-7) Last Admin: 02/21/17 08:41 Dose: 1 mg Insulin Aspart (Novolog) 10 unit SC ACHS PRN PRN Reason: sliding scale Insulin Aspart (Novolog) 10 unit SC ACHS [facility] Last Admin: 02/21/17 08:44 Dose: 10 unit Insulin Glargine (Lantus) 20 unit SC HS [facility] Insulin Human Regular (Novolin R) 0 unit SC ACHS [facility] PRN Reason: Protocol Last Admin: 02/21/17 08:43 Dose: 6 unit Isosorbide Mononitrate (Imdur) 60 mg PO DAILY [facility] Levothyroxine Sodium (Synthroid) 50 mcg PO DAILY [facility] Last Admin: 02/21/17 10:37 Dose: 50 mcg Multivitamins/Minerals (Therapeutic-M Tab) 1 tab PO DAILY [facility] Last Admin: 02/21/17 10:37 Dose: 1 tab Pantoprazole Sodium (Protonix Ec Tab) 40 mg PO DAILY [facility] Last Admin: 02/21/17 10:36 Dose: 40 mg Ranolazine (Ranexa) 500 mg PO BID [facility] Last Admin: 02/21/17 10:36 Dose: 500 mg Rosuvastatin Calcium (Crestor) 10 mg PO [facility] Sertraline HCl (Zoloft) 50 mg PO DAILY [facility] Last Admin: 02/21/17 10:35 Dose: 50 mg Physical Exam - Constitutional Appears: No Acute Distress - Head Exam Head Exam: ATRAUMATIC, NORMOCEPHALIC - Eye Exam Additional comments: blindness - ENT Exam ENT Exam: Mucous Membranes Moist - Respiratory Exam Additional comments: Lungs clear with decreased BS @ bases - Cardiovascular Exam Cardiovascular Exam: REGULAR RHYTHM, JVD, +S1, +S2, +S4 - GI/Abdominal Exam GI & Abdominal Exam: Soft Additional comments: No tenderness - Extremities Exam Additional comments: B/L BKA Results - Vital Signs Recent Vital Signs: Last Vital Signs Temp 98.4 F 02/21/17 07:52 Pulse 73 02/21/17 10:37 Resp 20 02/21/17 07:52 BP 132/56 L 02/21/17 10:37 Pulse Ox 96 02/21/17 07:52 - Labs Result Diagrams: 02/20/17 21:28 02/20/17 23:32 Labs: Laboratory Results - last 24 hr 02/20/17 02/21/17 02/21/17 23:48 01:07 02:14 pO2 53 VBG pH 7.19 L* VBG pCO2 55 VBG HCO3 18.4 VBG Total CO2 22.7 VBG O2 Sat (Calc) 87.5 H VBG Base Excess -7.7 L VBG Potassium 3.7 Sodium 130.0 L Chloride 93.0 L Glucose > 750 H* D Lactate 1.3 Crit Value Called To Dr gaines Crit Value Called By Sondra hickey rt Crit Value Read Back Y Blood Gas Notified Time 4354 POC Glucose (mg/dL) 425 H* 190 H Venous Blood Potassium 3.7 02/21/17 02/21/17 07:47 11:05 pO2 VBG pH VBG pCO2 VBG HCO3 VBG Total CO2 VBG O2 Sat (Calc) VBG Base Excess VBG Potassium Sodium Chloride Glucose Lactate Crit Value Called To Crit Value Called By Crit Value Read Back Blood Gas Notified Time POC Glucose (mg/dL) 322 H 231 H Venous Blood Potassium Assessment & Plan - Assessment and Plan (Free Text) Assessment: ESRD with fluid over load CAD. Hx/o CABG Uncontroled DM PVD Plan: PT had urgent dialysis last pm with UF of 3 Kg. Will schedule extra diakysis Tx today Renal diet, fluid restriction
[2017-02-21 11:47] LABS: EOS # 0.4 K/uL (0.0-0.7); LYMPH # 2.2 K/uL (1.0-4.3); MEAN CORPUSCULAR HEMOGLOBIN 27.6 pg (27.0-31.0); MEAN CORPUSCULAR HGB CONC 32.1 g/dL (33.0-37.0); NEUT % 81.5 % (50.0-75.0); RBC 3.14 Mil/uL (4.40-5.90); RED CELL DISTRIBUTION WIDTH 19.4 % (11.5-14.5)
[2017-02-21 11:50] LABS: MEAN CELL VOLUME 85.9 fL (80.0-94.0); WHITE BLOOD COUNT 19.6 K/uL (4.8-10.8)
[2017-02-21 11:51] LABS: ALBUMIN 3.1 g/dL (3.5-5.0)
[2017-02-21 11:54] LABS: ALB/GLOB RATIO 0.9 (1.0-2.1); CALCIUM 8.4 mg/dl (8.6-10.4)
[2017-02-21] MEDS ORDERED: HYDROmorphone 1 mg/ml ISec IM PRN (13:07)
[2017-02-21] MEDS ORDERED: cefTRIAXone IV 1 gm in Dextros 1 GM in Dextrose 5% In Water 50 ML IVPB SCH (13:15)
[2017-02-21] MEDS ORDERED: Lidocaine 2% Inj (20ml) ONE (14:51)
[2017-02-21] MEDS ORDERED: Midazolam 2 MG/2 ML VIAL ONE (15:27)
--- NOTE | 2017-02-21 15:56 | PCM.SURG1 ---
Surgeon's Initial Post Op Note - Surgeon's Notes Surgeon: Lana Photographer News: None Type of Anesthesia: Local Pre-Operative Diagnosis: Poor IV access and need for IV abx Operative Findings: Patent right brachial vein. Post-Operative Diagnosis: Poor IV access and need for IV abx Operation Performed: Right upper arm brachial vein 25cm 4F SL PICC with tip in the subclavian vein. Specimen/Specimens Removed: None Estimated Blood Loss: EBL {In ML}: 1 Date of Surgery/Procedure: 02/21/17 Time of Surgery/Procedure: 15:50
--- NOTE | 2017-02-21 17:28 | CP.PCM.HP ---
History of Present Illness - History of Present Illness History of Present Illness: came in to er sob chest pain bs very hi Present on Admission - Present on Admission Any Indicators Present on Admission: Yes Review of Systems - Review of Systems Systems not reviewed;Unavailable: Acuity of Condition, Respiratory Distress, Altered Mental Status - Constitutional Constitutional: Lethargy - EENT Eyes: Loss of Vision, Other Ears: As Per HPI Nose/Mouth/Throat: As Per HPI - Cardiovascular Cardiovascular: Chest Pain at Rest, Dyspnea - Respiratory Respiratory: Dyspnea on Exertion - Gastrointestinal Gastrointestinal: Abdominal Pain - Reproductive: Male Additional comments: small ambiguas genetalia - Psychiatric Psychiatric: Depression - Endocrine Endocrine: Polydipsia, Polyphagia - Hematologic/Lymphatic Additional comments: bs more neli 1000 on admision pro bnp very hi Past Patient History - Infectious Disease Hx of Infectious Diseases: None - Tetanus Immunizations Tetanus Immunization: >10 years Ago - Past Medical History & Family History Past Medical History?: Yes - Past Social History Smoking Status: Never Smoked - CARDIAC Hx Cardiac Disorders: Yes Hx Atrial Fibrillation: Yes Hx Cardia Arrhythmia: Yes Hx Congestive Heart Failure: Yes Hx Hypercholesterolemia: Yes Hx Hypertension: Yes - PULMONARY Hx Respiratory Disorders: Yes Hx Asthma: Yes Hx Bronchitis: Yes Hx Chronic Obstructive Pulmonary Disease (COPD): Yes Hx Pneumonia: Yes - NEUROLOGICAL Hx Neurological Disorder: Yes Hx Alzheimer's Disease: Yes Hx Seizures: Yes - HEENT Hx HEENT Problems: Yes Hx Blind: Yes (legally blind) Hx Cataracts: Yes - RENAL Hx Chronic Kidney Disease: Yes - ENDOCRINE/METABOLIC Hx Endocrine Disorders: Yes Hx Diabetes Mellitus Type 2: Yes Hx Hypothyroidism: Yes - HEMATOLOGICAL/ONCOLOGICAL Hx Blood Disorders: Yes Hx Anemia: Yes - INTEGUMENTARY Hx Dermatological Problems: No - MUSCULOSKELETAL/RHEUMATOLOGICAL Hx Falls: No - GASTROINTESTINAL Hx Gastrointestinal Disorders: Yes Hx Gall Bladder Disease: Yes - GENITOURINARY/GYNECOLOGICAL Hx Genitourinary Disorders: No Hx Sexually Transmitted Disorders: No - PSYCHIATRIC Hx Psychophysiologic Disorder: Yes Hx Anxiety: Yes Hx Depression: Yes Hx Substance Use: No - SURGICAL HISTORY Hx Surgeries: Yes Hx Amputation: Yes Hx Cholecystectomy: Yes (2011) 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/2009) Hx Coronary Stent: Yes - ANESTHESIA Hx Anesthesia: Yes Hx Anesthesia Reactions: No Hx Malignant Hyperthermia: No Meds Allergies/Adverse Reactions: Allergies Allergy/AdvReac Type Severity Reaction Status Date / Time acetaminophen [From Percocet] Allergy RASH Verified 02/03/17 13:47 atenolol Allergy RASH Verified 02/03/17 13:47 digoxin Allergy RASH Verified 02/03/17 13:47 milk Allergy ITCHING Verified 02/03/17 13:47 morphine Allergy ITCHING Verified 02/03/17 13:47 oxycodone HCl [From Percocet] Allergy RASH Verified 02/03/17 13:47 Physical Exam - Constitutional Appears: In Acute Distress - Head Exam Head Exam: NORMOCEPHALIC - Eye Exam Eye Exam: Conjunctival injection Additional comments: legaly blind - ENT Exam ENT Exam: Mucous Membranes Dry - Neck Exam Neck exam: Positive for: Normal Inspection - Respiratory Exam Respiratory Exam: Decreased Breath Sounds, Rales - Cardiovascular Exam Cardiovascular Exam: Tachycardia - GI/Abdominal Exam GI & Abdominal Exam: Normal Bowel Sounds - Rectal Exam Rectal Exam: NORMAL INSPECTION - Extremities Exam Additional comments: s/p javier aka - Back Exam Back exam: NORMAL INSPECTION - Neurological Exam Neurological exam: Alert, Oriented x3 - Psychiatric Exam Psychiatric exam: Flat Affect - Skin Skin Exam: Dry Results - Vital Signs Recent Vital Signs: Last Vital Signs Temp 97.7 F 02/21/17 13:15 Pulse 68 02/21/17 13:15 Resp 20 02/21/17 13:15 BP 170/76 H 02/21/17 13:15 Pulse Ox 100 02/21/17 13:15 - Labs Result Diagrams: 02/21/17 11:32 02/21/17 11:32 Labs: Laboratory Results - last 24 hr 02/20/17 02/21/17 02/21/17 23:48 01:07 02:14 WBC RBC Hgb Hct MCV MCH MCHC RDW Plt Count MPV Neut % (Auto) Lymph % (Auto) [place] % (Auto) Eos % (Auto) Baso % (Auto) Neut # Lymph # [place] # Eos # Baso # pO2 53 VBG pH 7.19 L* VBG pCO2 55 VBG HCO3 18.4 VBG Total CO2 22.7 VBG O2 Sat (Calc) 87.5 H VBG Base Excess -7.7 L VBG Potassium 3.7 Sodium 130.0 L Chloride 93.0 L Glucose > 750 H* D Lactate 1.3 Crit Value Called To Dr gaines Crit Value Called By Sondra hickey rt Crit Value Read Back Y Blood Gas Notified Time 2355 Potassium Carbon Dioxide Anion Gap BUN Creatinine Est GFR ( Amer) Est GFR (Non-Af Amer) POC Glucose (mg/dL) 425 H* 190 H Random Glucose Calcium Total Bilirubin AST ALT Alkaline Phosphatase Total Protein Albumin Globulin Albumin/Globulin Ratio Triglycerides Cholesterol LDL Cholesterol Direct HDL Cholesterol Venous Blood Potassium 3.7 02/21/17 02/21/17 02/21/17 07:47 11:05 11:32 WBC 19.6 H D RBC 3.14 L Hgb 8.7 L Hct 27.0 L MCV 85.9 D MCH 27.6 MCHC 32.1 L RDW 19.4 H Plt Count 299 MPV 9.4 Neut % (Auto) 81.5 H Lymph % (Auto) 11.0 L [place] % (Auto) 5.0 Eos % (Auto) 2.0 Baso % (Auto) 0.5 Neut # 16.0 H Lymph # 2.2 [place] # 1.0 H Eos # 0.4 Baso # 0.1 pO2 VBG pH VBG pCO2 VBG HCO3 VBG Total CO2 VBG O2 Sat (Calc) VBG Base Excess VBG Potassium Sodium Chloride Glucose Lactate Crit Value Called To Crit Value Called By Crit Value Read Back Blood Gas Notified Time Potassium Carbon Dioxide Anion Gap BUN Creatinine Est GFR ( Amer) Est GFR (Non-Af Amer) POC Glucose (mg/dL) 322 H 231 H Random Glucose Calcium Total Bilirubin AST ALT Alkaline Phosphatase Total Protein Albumin Globulin Albumin/Globulin Ratio Triglycerides Cholesterol LDL Cholesterol Direct HDL Cholesterol Venous Blood Potassium 02/21/17 11:32 WBC RBC Hgb Hct MCV MCH MCHC RDW Plt Count MPV Neut % (Auto) Lymph % (Auto) [place] % (Auto) Eos % (Auto) Baso % (Auto) Neut # Lymph # [place] # Eos # Baso # pO2 VBG pH VBG pCO2 VBG HCO3 VBG Total CO2 VBG O2 Sat (Calc) VBG Base Excess VBG Potassium Sodium 136 Chloride 97 L Glucose Lactate Crit Value Called To Crit Value Called By Crit Value Read Back Blood Gas Notified Time Potassium 3.7 Carbon Dioxide 25 Anion Gap 18 BUN 36 H Creatinine 4.7 H Est GFR ( Amer) 17 Est GFR (Non-Af Amer) 14 POC Glucose (mg/dL) Random Glucose 204 H Calcium 8.4 L Total Bilirubin 0.6 AST 18 ALT 9 L D Alkaline Phosphatase 144 H D Total Protein 6.6 Albumin 3.1 L Globulin 3.5 Albumin/Globulin Ratio 0.9 L Triglycerides 97 D Cholesterol 81 LDL Cholesterol Direct 33 HDL Cholesterol 22 L Venous Blood Potassium Assessment & Plan - Assessment and Plan (Free Text) Assessment: ac rec CHF CAD DMID UNCONTROLED ESRF PASSIBLE PNUMONIA LECOCYTOSIS ANEAMIA Plan: PER ORDER Decision To Admit - Pt Status Changed To: Hospital Disposition Of: Inpatient - Admit Certification Admit to Inpatient:: After my assessment, the patient will require hospitalization for at least two midnights. This is because of the severity of symptoms shown, intensity of services needed, and/or the medical risk in this patient being treated as an outpatient. - InPatient: Physician Admission Certification:: PT WILL BE ADMITED [facility] GET DIALYSIS AND CONSULTATION - . Bed Request Type: Telemetry
--- NOTE | 2017-02-21 19:29 | CARD ---
APPROVED REPORT EKG Measurement Heart [id number] [id number] <Conclusion> Normal sinus rhythm LVH Baseline artifact. Abnormal ECG
[2017-02-21] MEDS: cefTRIAXone IV 1 gm in Dextros 50 ML IVPB SCH (19:46)
[2017-02-21] MEDS: (Lantus) Insulin Glargine, Recombinant SC SCH (22:40)
--- NOTE | 2017-02-21 23:15 | CP.PCM.CON ---
History of Present Illness - History of Present Illness History of Present Illness: uncontrolled IDDM /hypoglycemia Past Patient History - Infectious Disease Hx of Infectious Diseases: None - Tetanus Immunizations Tetanus Immunization: >10 years Ago - Past Medical History & Family History Past Medical History?: Yes - Past Social History Smoking Status: Never Smoked - CARDIAC Hx Cardiac Disorders: Yes Hx Atrial Fibrillation: Yes Hx Cardia Arrhythmia: Yes Hx Congestive Heart Failure: Yes Hx Hypercholesterolemia: Yes Hx Hypertension: Yes - PULMONARY Hx Respiratory Disorders: Yes Hx Asthma: Yes Hx Bronchitis: Yes Hx Chronic Obstructive Pulmonary Disease (COPD): Yes Hx Pneumonia: Yes - NEUROLOGICAL Hx Neurological Disorder: Yes Hx Alzheimer's Disease: Yes Hx Seizures: Yes - HEENT Hx HEENT Problems: Yes Hx Blind: Yes (legally blind) Hx Cataracts: Yes - RENAL Hx Chronic Kidney Disease: Yes - ENDOCRINE/METABOLIC Hx Endocrine Disorders: Yes Hx Diabetes Mellitus Type 2: Yes Hx Hypothyroidism: Yes - HEMATOLOGICAL/ONCOLOGICAL Hx Blood Disorders: Yes Hx Anemia: Yes - INTEGUMENTARY Hx Dermatological Problems: No - MUSCULOSKELETAL/RHEUMATOLOGICAL Hx Falls: No - GASTROINTESTINAL Hx Gastrointestinal Disorders: Yes Hx Gall Bladder Disease: Yes - GENITOURINARY/GYNECOLOGICAL Hx Genitourinary Disorders: No Hx Sexually Transmitted Disorders: No - PSYCHIATRIC Hx Psychophysiologic Disorder: Yes Hx Anxiety: Yes Hx Depression: Yes Hx Substance Use: No - SURGICAL HISTORY Hx Surgeries: Yes Hx Amputation: Yes Hx Cholecystectomy: Yes (2011) 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/2009) Hx Coronary Stent: Yes - ANESTHESIA Hx Anesthesia: Yes Hx Anesthesia Reactions: No Hx Malignant Hyperthermia: No Meds Allergies/Adverse Reactions: Allergies Allergy/AdvReac Type Severity Reaction Status Date / Time acetaminophen [From Percocet] Allergy RASH Verified 02/03/17 13:47 atenolol Allergy RASH Verified 02/03/17 13:47 digoxin Allergy RASH Verified 02/03/17 13:47 milk Allergy ITCHING Verified 02/03/17 13:47 morphine Allergy ITCHING Verified 02/03/17 13:47 oxycodone HCl [From Percocet] Allergy RASH Verified 02/03/17 13:47 - Medications Medications: Current Medications Amlodipine Besylate (Norvasc) 10 mg PO DAILY [facility] Last Admin: 02/21/17 11:00 Dose: Not Given Aspirin (Aspirin Chewable) 81 mg PO DAILY [facility] Last Admin: 02/21/17 10:36 Dose: 81 mg Calcitriol (Rocaltrol) 0.25 mcg PO DAILY [facility] Last Admin: 02/21/17 10:37 Dose: 0.25 mcg Calcium Carbonate (Oscal) 1,000 mg PO BID [facility] Last Admin: 02/21/17 19:43 Dose: 1,000 mg Carvedilol (Coreg) 25 mg PO BID [facility] Last Admin: 02/21/17 19:44 Dose: 25 mg Clopidogrel Bisulfate (Plavix) 75 mg PO DAILY [facility] Last Admin: 02/21/17 10:36 Dose: 75 mg Docusate Sodium (Colace) 100 mg PO DAILY PRN PRN Reason: constipation Epoetin Tom (Procrit) 8,000 unit IV TTS [facility] Gabapentin (Neurontin) 100 mg PO BID [facility] Last Admin: 02/21/17 19:42 Dose: 100 mg Heparin Sodium (Porcine) (Heparin) 5,000 units SC Q12 [facility] Last Admin: 02/21/17 22:40 Dose: 5,000 units Hydralazine HCl (Apresoline) 100 mg PO Q8 [facility] Last Admin: 02/21/17 22:41 Dose: Not Given Hydromorphone HCl (Dilaudid) 1 mg IVP Q6H PRN PRN Reason: Pain, moderate (4-7) Last Admin: 02/21/17 20:55 Dose: 1 mg Ceftriaxone Sodium (Rocephin Iv 1 Gm Duplex) 50 mls @ 50 mls/30 min IVPB DAILY [facility] Last Admin: 02/21/17 19:46 Dose: 50 mls/30 min Insulin Aspart (Novolog) 10 unit SC ACHS PRN PRN Reason: sliding scale Insulin Aspart (Novolog) 10 unit SC ACHS [facility] Last Admin: 02/21/17 22:42 Dose: Not Given Insulin Glargine (Lantus) 20 unit SC HS [facility] Last Admin: 02/21/17 22:40 Dose: 20 units Insulin Human Regular (Novolin R) 0 unit SC ACHS [facility] PRN Reason: Protocol Last Admin: 02/21/17 22:41 Dose: Not Given Isosorbide Mononitrate (Imdur) 60 mg PO DAILY [facility] Last Admin: 02/21/17 11:00 Dose: Not Given Levothyroxine Sodium (Synthroid) 50 mcg PO DAILY@0630 [facility] Multivitamins/Minerals (Therapeutic-M Tab) 1 tab PO DAILY [facility] Last Admin: 02/21/17 10:37 Dose: 1 tab Pantoprazole Sodium (Protonix Ec Tab) 40 mg PO DAILY [facility] Last Admin: 02/21/17 10:36 Dose: 40 mg Ranolazine (Ranexa) 500 mg PO BID [facility] Last Admin: 02/21/17 19:44 Dose: 500 mg Rosuvastatin Calcium (Crestor) 10 mg PO HS [facility] Last Admin: 02/21/17 22:40 Dose: 10 mg Sertraline HCl (Zoloft) 50 mg PO DAILY [facility] Last Admin: 02/21/17 10:35 Dose: 50 mg Results - Vital Signs Recent Vital Signs: Last Vital Signs Temp 97.2 F L 02/21/17 16:15 Pulse 74 02/21/17 19:00 Resp 18 02/21/17 19:00 BP 147/67 02/21/17 19:44 Pulse Ox 96 02/21/17 19:00 - Labs Result Diagrams: 02/21/17 11:32 02/21/17 11:32 Labs: Laboratory Results - last 24 hr 02/20/17 02/21/17 02/21/17 23:48 01:07 02:14 WBC RBC Hgb Hct MCV MCH MCHC RDW Plt Count MPV Neut % (Auto) Lymph % (Auto) Becker % (Auto) Eos % (Auto) Baso % (Auto) Neut # Lymph # Becker # Eos # Baso # pO2 53 VBG pH 7.19 L* VBG pCO2 55 VBG HCO3 18.4 VBG Total CO2 22.7 VBG O2 Sat (Calc) 87.5 H VBG Base Excess -7.7 L VBG Potassium 3.7 Sodium 130.0 L Chloride 93.0 L Glucose > 750 H* D Lactate 1.3 Crit Value Called To Dr gaines Crit Value Called By Sondra hickey rt Crit Value Read Back Y Blood Gas Notified Time 4978 Potassium Carbon Dioxide Anion Gap BUN Creatinine Est GFR ( Amer) Est GFR (Non-Af Amer) POC Glucose (mg/dL) 425 H* 190 H Random Glucose Calcium Total Bilirubin AST ALT Alkaline Phosphatase Total Protein Albumin Globulin Albumin/Globulin Ratio Triglycerides Cholesterol LDL Cholesterol Direct HDL Cholesterol Venous Blood Potassium 3.7 02/21/17 02/21/17 02/21/17 07:47 11:05 11:32 WBC 19.6 H D RBC 3.14 L Hgb 8.7 L Hct 27.0 L MCV 85.9 D MCH 27.6 MCHC 32.1 L RDW 19.4 H Plt Count 299 MPV 9.4 Neut % (Auto) 81.5 H Lymph % (Auto) 11.0 L Becker % (Auto) 5.0 Eos % (Auto) 2.0 Baso % (Auto) 0.5 Neut # 16.0 H Lymph # 2.2 Becker # 1.0 H Eos # 0.4 Baso # 0.1 pO2 VBG pH VBG pCO2 VBG HCO3 VBG Total CO2 VBG O2 Sat (Calc) VBG Base Excess VBG Potassium Sodium Chloride Glucose Lactate Crit Value Called To Crit Value Called By Crit Value Read Back Blood Gas Notified Time Potassium Carbon Dioxide Anion Gap BUN Creatinine Est GFR ( Amer) Est GFR (Non-Af Amer) POC Glucose (mg/dL) 322 H 231 H Random Glucose Calcium Total Bilirubin AST ALT Alkaline Phosphatase Total Protein Albumin Globulin Albumin/Globulin Ratio Triglycerides Cholesterol LDL Cholesterol Direct HDL Cholesterol Venous Blood Potassium 02/21/17 02/21/17 02/21/17 11:32 17:53 22:07 WBC RBC Hgb Hct MCV MCH MCHC RDW Plt Count MPV Neut % (Auto) Lymph % (Auto) Becker % (Auto) Eos % (Auto) Baso % (Auto) Neut # Lymph # Becker # Eos # Baso # pO2 VBG pH VBG pCO2 VBG HCO3 VBG Total CO2 VBG O2 Sat (Calc) VBG Base Excess VBG Potassium Sodium 136 Chloride 97 L Glucose Lactate Crit Value Called To Crit Value Called By Crit Value Read Back Blood Gas Notified Time Potassium 3.7 Carbon Dioxide 25 Anion Gap 18 BUN 36 H Creatinine 4.7 H Est GFR ( Amer) 17 Est GFR (Non-Af Amer) 14 POC Glucose (mg/dL) 99 145 H Random Glucose 204 H Calcium 8.4 L Total Bilirubin 0.6 AST 18 ALT 9 L D Alkaline Phosphatase 144 H D Total Protein 6.6 Albumin 3.1 L Globulin 3.5 Albumin/Globulin Ratio 0.9 L Triglycerides 97 D Cholesterol 81 LDL Cholesterol Direct 33 HDL Cholesterol 22 L Venous Blood Potassium Assessment & Plan (1) Diabetes mellitus, insulin dependent (IDDM), uncontrolled Assessment and Plan: Endocrine consult for uncontrolled IDDM Mr. Saha pt. is 36 y/o admitted to for fluid overload , glucose >500 pt. known to endocrine with uncontrolled IDDM /brittle ,complicated with ESRD on HD , retinopathy /legally blind , CAD s/p CABG , PVD s/p bilateral BKA , neuropathy , gastroparesis . on Novolog medium dose coverage , novolog 8 units tid also with h/o hypothyroidism off synthroid blood glucose log : , no hypoglycemia Allergy multiple as per record review Past medical history : as above Past surgical history : as above Psychiatry history : (+) psychiatry disorder Social history : denies smoking , ETOH use , illicit drug use Family history : mother & sister with diabetes ROS: Constitutional: denies fever ,tiredness/weakness .HEENT: denies earache, change in voice .Respiratory: denies cough, sob . CVS :no chest pain, no palpitations . Abdomen : no abdominal pain, s/p nausea /vomiting , no change bowel movement . 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 Extremities : no edema , no tremors .Skin: no itching, no rash Physical exam Well developed AAO x3 , asking for pain medication , poor intake as per nurse in charge VSS HEENT: norm cephalic, atraumatic , no lid lag , no exophthalmos , pale NECK: supple, no palpable lymphadenopathy THYROID: no palpable thyromegaly , not tender CHEST: fair air entry, bilateral, CVS: S1,S2 ABDOMEN: bowel sound present, benign, obese, no wide purple striae , no bruises EXTREMITIES: no edema, clubbing or cyanosis, no palpable hand tremors , bilateral BKA Skin : acanthosis nigricans lab: 02/2016 [facility] -[employer] [id number] , troponin (-), ldl 33 , tg 97 , wbc 19.6 ,serum ketone (-) 12/2016 TSH 1.80 , T3 1.22 , T4 7.61, ft4 1.25 Assessment uncontrolled IDDM ESRD on HD PVD s/p b/l BKA diabetes retinopathy /legally blind h/o hypothyroidism CHF plan change Novolin R low to low dose coverage change Novolin R to 4 units if eat more than 60% of the meal on lantus 20 units @ 9pm daily will monitor Status: Acute Priority: Medium (2) ESRD on hemodialysis Status: Acute
[2017-02-21] MEDS ORDERED: (Novolin R) Insulin Human Regular 100 units/ml vial SC SCH (23:26)
[2017-02-22] MEDS: Levothyroxine 50 MCG TAB PO SCH (06:12)
[2017-02-22] MEDS ORDERED: (Novolog) Insulin Aspart, Recombinant 100 u/ml 10 ml vial SC SCH (08:00)
[2017-02-22] MEDS ORDERED: (Novolog Mix 70/30) Insulin Aspart/Insulin Aspar 100 units/ml SC ONE (09:11)
[2017-02-22] MEDS: (Novolog Mix 70/30) Insulin Aspart/Insulin Aspar 100 units/ml SC SCH ×3 (09:16→18:23)
[2017-02-22] MEDS: Pantoprazole 40 mg EC Tab PO SCH (09:53)
[2017-02-22] MEDS: Multivitamin With Minerals Tab PO SCH (09:53)
[2017-02-22] MEDS: Ranolazine 500 mg Extended Release Tablets PO SCH ×2 (09:53→19:05)
[2017-02-22] MEDS: cefTRIAXone IV 1 gm in Dextros 50 ML IVPB SCH (09:54)
--- NOTE | 2017-02-22 12:04 | CP.PCM.PN ---
Subjective - Date & Time of Evaluation Date of Evaluation: 02/22/17 Time of Evaluation: 12:02 - Subjective Subjective: pt feels bad sob pain at site of cath red and swalen Objective - Vital Signs/Intake and Output Vital Signs (last 24 hours): Temp Pulse Resp BP Pulse Ox 98.1 F 60 18 155/60 H 100 02/22/17 07:15 02/22/17 07:15 02/22/17 07:15 02/22/17 09:53 02/22/17 07:15 Intake and Output: 02/22/17 02/22/17 06:59 18:59 Intake Total 300 Balance 300 - Medications Medications: Current Medications Amlodipine Besylate (Norvasc) 10 mg PO DAILY [facility] Last Admin: 02/22/17 09:52 Dose: 10 mg Aspirin (Aspirin Chewable) 81 mg PO DAILY [facility] Last Admin: 02/22/17 09:53 Dose: 81 mg Calcitriol (Rocaltrol) 0.25 mcg PO DAILY [facility] Last Admin: 02/22/17 09:52 Dose: 0.25 mcg Calcium Carbonate (Oscal) 1,000 mg PO BID [facility] Last Admin: 02/22/17 09:55 Dose: 1,000 mg Carvedilol (Coreg) 25 mg PO BID [facility] Last Admin: 02/22/17 09:53 Dose: 25 mg Clopidogrel Bisulfate (Plavix) 75 mg PO DAILY [facility] Last Admin: 02/22/17 09:54 Dose: 75 mg Docusate Sodium (Colace) 100 mg PO DAILY PRN PRN Reason: constipation Epoetin Tom (Procrit) 8,000 unit IV TTS [facility] Gabapentin (Neurontin) 100 mg PO BID [facility] Last Admin: 02/22/17 09:53 Dose: 100 mg Heparin Sodium (Porcine) (Heparin) 5,000 units SC Q12 [facility] Last Admin: 02/22/17 09:54 Dose: 5,000 units Hydralazine HCl (Apresoline) 100 mg PO Q8 [facility] Last Admin: 02/22/17 05:56 Dose: 100 mg Hydromorphone HCl (Dilaudid) 1 mg IVP Q6H PRN PRN Reason: Pain, moderate (4-7) Last Admin: 02/22/17 09:49 Dose: 1 mg Ceftriaxone Sodium (Rocephin Iv 1 Gm Duplex) 50 mls @ 50 mls/30 min IVPB DAILY [facility] Last Admin: 02/22/17 09:54 Dose: 50 mls/30 min Insulin Aspart (Novolog Mix 70/30 (70/30 Units/Ml)) 10 units SC AC [facility] Stop: 02/22/17 22:01 Last Admin: 02/22/17 09:16 Dose: 10 units Insulin Glargine (Lantus) 20 unit SC [facility] Last Admin: 02/21/17 22:40 Dose: 20 units Isosorbide Mononitrate (Imdur) 60 mg PO DAILY [facility] Last Admin: 02/22/17 09:54 Dose: 60 mg Levothyroxine Sodium (Synthroid) 50 mcg PO DAILY@0630 [facility] Last Admin: 02/22/17 06:12 Dose: 50 mcg Multivitamins/Minerals (Therapeutic-M Tab) 1 tab PO DAILY [facility] Last Admin: 02/22/17 09:53 Dose: 1 tab Pantoprazole Sodium (Protonix Ec Tab) 40 mg PO DAILY [facility] Last Admin: 02/22/17 09:53 Dose: 40 mg Ranolazine (Ranexa) 500 mg PO BID [facility] Last Admin: 02/22/17 09:53 Dose: 500 mg Rosuvastatin Calcium (Crestor) 10 mg PO HS [facility] Last Admin: 02/21/17 22:40 Dose: 10 mg Sertraline HCl (Zoloft) 50 mg PO DAILY [facility] Last Admin: 02/22/17 09:53 Dose: 50 mg - Labs Labs: 02/21/17 11:32 02/21/17 11:32 - Constitutional Appears: In Acute Distress - Eye Exam Additional comments: legaly blind - ENT Exam ENT Exam: Mucous Membranes Dry - Neck Exam Neck Exam: Full ROM - Respiratory Exam Respiratory Exam: Rales - Cardiovascular Exam Cardiovascular Exam: REGULAR RHYTHM - GI/Abdominal Exam GI & Abdominal Exam: Normal Bowel Sounds - Back Exam Back Exam: CVA tenderness (L) - Psychiatric Exam Psychiatric exam: Anxious - Skin Skin Exam: Pallor Assessment and Plan - Assessment and Plan (Free Text) Assessment: CHF DMIM ESRF CAD ANEAMIA COPD Plan: PER ORDERS
[2017-02-22] MEDS ORDERED: HYDROmorphone 0.5 mg/0.5 ml ISec IVP STA (13:29)
[2017-02-22] MEDS ORDERED: HYDROmorphone 0.5 mg/0.5 ml ISec ONE (13:35)
--- NOTE | 2017-02-22 13:45 | CP.PCM.CON ---
History of Present Illness - History of Present Illness History of Present Illness: Vasc Sx: Dr Mckinnon Re: Chest wall abscess Pt with 1 x1 cm abscess on supraclavicular chest wall. Fluctuant. Pt reports subjective fevers Pt I&D at bedside - see attached procedure note- culture sent off Review of Systems - Review of Systems All systems: reviewed and no additional remarkable complaints except (as per hpi ) Past Patient History - Infectious Disease Hx of Infectious Diseases: None - Tetanus Immunizations Tetanus Immunization: >10 years Ago - Past Medical History & Family History Past Medical History?: Yes - Past Social History Smoking Status: Never Smoked - CARDIAC Hx Cardiac Disorders: Yes Hx Atrial Fibrillation: Yes Hx Cardia Arrhythmia: Yes Hx Congestive Heart Failure: Yes Hx Hypercholesterolemia: Yes Hx Hypertension: Yes - PULMONARY Hx Respiratory Disorders: Yes Hx Asthma: Yes Hx Bronchitis: Yes Hx Chronic Obstructive Pulmonary Disease (COPD): Yes Hx Pneumonia: Yes - NEUROLOGICAL Hx Neurological Disorder: Yes Hx Alzheimer's Disease: Yes Hx Seizures: Yes - HEENT Hx HEENT Problems: Yes Hx Blind: Yes (legally blind) Hx Cataracts: Yes - RENAL Hx Chronic Kidney Disease: Yes - ENDOCRINE/METABOLIC Hx Endocrine Disorders: Yes Hx Diabetes Mellitus Type 2: Yes Hx Hypothyroidism: Yes - HEMATOLOGICAL/ONCOLOGICAL Hx Blood Disorders: Yes Hx Anemia: Yes - INTEGUMENTARY Hx Dermatological Problems: No - MUSCULOSKELETAL/RHEUMATOLOGICAL Hx Falls: No - GASTROINTESTINAL Hx Gastrointestinal Disorders: Yes Hx Gall Bladder Disease: Yes - GENITOURINARY/GYNECOLOGICAL Hx Genitourinary Disorders: No Hx Sexually Transmitted Disorders: No - PSYCHIATRIC Hx Psychophysiologic Disorder: Yes Hx Anxiety: Yes Hx Depression: Yes Hx Substance Use: No - SURGICAL HISTORY Hx Surgeries: Yes Hx Amputation: Yes Hx Cholecystectomy: Yes (2011) 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/2009) Hx Coronary Stent: Yes - ANESTHESIA Hx Anesthesia: Yes Hx Anesthesia Reactions: No Hx Malignant Hyperthermia: No Meds Allergies/Adverse Reactions: Allergies Allergy/AdvReac Type Severity Reaction Status Date / Time acetaminophen [From Percocet] Allergy RASH Verified 02/03/17 13:47 atenolol Allergy RASH Verified 02/03/17 13:47 digoxin Allergy RASH Verified 02/03/17 13:47 milk Allergy ITCHING Verified 02/03/17 13:47 morphine Allergy ITCHING Verified 02/03/17 13:47 oxycodone HCl [From Percocet] Allergy RASH Verified 02/03/17 13:47 - Medications Medications: Current Medications Amlodipine Besylate (Norvasc) 10 mg PO DAILY [facility] Last Admin: 02/22/17 09:52 Dose: 10 mg Aspirin (Aspirin Chewable) 81 mg PO DAILY [facility] Last Admin: 02/22/17 09:53 Dose: 81 mg Calcitriol (Rocaltrol) 0.25 mcg PO DAILY [facility] Last Admin: 02/22/17 09:52 Dose: 0.25 mcg Calcium Carbonate (Oscal) 1,000 mg PO BID [facility] Last Admin: 02/22/17 09:55 Dose: 1,000 mg Carvedilol (Coreg) 25 mg PO BID [facility] Last Admin: 02/22/17 09:53 Dose: 25 mg Clopidogrel Bisulfate (Plavix) 75 mg PO DAILY [facility] Last Admin: 02/22/17 09:54 Dose: 75 mg Docusate Sodium (Colace) 100 mg PO DAILY PRN PRN Reason: constipation Epoetin Tom (Procrit) 8,000 unit IV TTS [facility] Gabapentin (Neurontin) 100 mg PO BID [facility] Last Admin: 02/22/17 09:53 Dose: 100 mg Heparin Sodium (Porcine) (Heparin) 5,000 units SC Q12 [facility] Last Admin: 02/22/17 09:54 Dose: 5,000 units Hydralazine HCl (Apresoline) 100 mg PO Q8 [facility] Last Admin: 02/22/17 05:56 Dose: 100 mg Hydromorphone HCl (Dilaudid) 1 mg IVP Q6H PRN PRN Reason: Pain, moderate (4-7) Last Admin: 02/22/17 09:49 Dose: 1 mg Ceftriaxone Sodium (Rocephin Iv 1 Gm Duplex) 50 mls @ 50 mls/30 min IVPB DAILY [facility] Last Admin: 02/22/17 09:54 Dose: 50 mls/30 min Insulin Aspart (Novolog Mix 70/30 (70/30 Units/Ml)) 10 units SC AC [facility] Stop: 02/22/17 22:01 Last Admin: 02/22/17 09:16 Dose: 10 units Insulin Glargine (Lantus) 20 unit SC HS [facility] Last Admin: 02/21/17 22:40 Dose: 20 units Isosorbide Mononitrate (Imdur) 60 mg PO DAILY [facility] Last Admin: 02/22/17 09:54 Dose: 60 mg Levothyroxine Sodium (Synthroid) 50 mcg PO DAILY@0630 [facility] Last Admin: 02/22/17 06:12 Dose: 50 mcg Multivitamins/Minerals (Therapeutic-M Tab) 1 tab PO DAILY [facility] Last Admin: 02/22/17 09:53 Dose: 1 tab Pantoprazole Sodium (Protonix Ec Tab) 40 mg PO DAILY [facility] Last Admin: 02/22/17 09:53 Dose: 40 mg Ranolazine (Ranexa) 500 mg PO BID [facility] Last Admin: 02/22/17 09:53 Dose: 500 mg Rosuvastatin Calcium (Crestor) 10 mg PO HS [facility] Last Admin: 02/21/17 22:40 Dose: 10 mg Sertraline HCl (Zoloft) 50 mg PO DAILY [facility] Last Admin: 02/22/17 09:53 Dose: 50 mg Physical Exam - Constitutional Appears: No Acute Distress - Eye Exam Eye Exam: absent: Normal appearance - Respiratory Exam Respiratory Exam: absent: Accessory Muscle Use, Respiratory Distress - Cardiovascular Exam Cardiovascular Exam: REGULAR RHYTHM. absent: Tachycardia Additional comments: 1 x 1 fluctuant chest wall abscess - GI/Abdominal Exam GI & Abdominal Exam: Soft. absent: Tenderness - Extremities Exam Additional comments: b/l bka - Neurological Exam Neurological exam: Alert, Oriented x3 - Psychiatric Exam Psychiatric exam: Normal Affect, Normal Mood Results - Vital Signs Recent Vital Signs: Last Vital Signs Temp 98.1 F 02/22/17 07:15 Pulse 60 02/22/17 07:15 Resp 18 02/22/17 07:15 BP 155/60 H 02/22/17 09:53 Pulse Ox 100 02/22/17 07:15 - Labs Result Diagrams: 02/21/17 11:32 02/21/17 11:32 Labs: Laboratory Results - last 24 hr 02/21/17 02/21/17 02/22/17 17:53 22:07 06:48 POC Glucose (mg/dL) 99 145 H 201 H 02/22/17 11:44 POC Glucose (mg/dL) 167 H Assessment & Plan - Assessment and Plan (Free Text) Assessment: 36M with right chest wall abscess Plan: I&D at bedside no packing needed dressing change daily and PRN - can be done by nursing will follow to check wound cultures sent for gram stain d/w Dr Pratibha Roberts, PGY2 - Date & Time Date: 02/22/17 Time: 14:03 - Incision & Drainage Of Abscess Anesthesia: With Epi, Bupivicaine 0.25% Used During Procedure: Investigative Shopper Prep Used: Betadine Procedure: Incised W/Scalpel Blade#: (11), Drained Pus (5 cc), Irrigated Cavity W/Saline, Probed To Break Up Loculations, Cultures Obtained And Sent To Lab
--- NOTE | 2017-02-22 15:58 | CP.PCM.PN ---
Subjective - Date & Time of Evaluation Date of Evaluation: 02/22/17 Time of Evaluation: 10:45 - Subjective Subjective: No c/o sob Objective - Vital Signs/Intake and Output Vital Signs (last 24 hours): Temp Pulse Resp BP Pulse Ox 98.1 F 60 18 155/60 H 100 02/22/17 07:15 02/22/17 07:15 02/22/17 07:15 02/22/17 09:53 02/22/17 07:15 Intake and Output: 02/22/17 02/22/17 06:59 18:59 Intake Total 300 Balance 300 - Medications Medications: Current Medications Amlodipine Besylate (Norvasc) 10 mg PO DAILY [facility] Last Admin: 02/22/17 09:52 Dose: 10 mg Aspirin (Aspirin Chewable) 81 mg PO DAILY [facility] Last Admin: 02/22/17 09:53 Dose: 81 mg Calcitriol (Rocaltrol) 0.25 mcg PO DAILY [facility] Last Admin: 02/22/17 09:52 Dose: 0.25 mcg Calcium Carbonate (Oscal) 1,000 mg PO BID [facility] Last Admin: 02/22/17 09:55 Dose: 1,000 mg Carvedilol (Coreg) 25 mg PO BID [facility] Last Admin: 02/22/17 09:53 Dose: 25 mg Clopidogrel Bisulfate (Plavix) 75 mg PO DAILY [facility] Last Admin: 02/22/17 09:54 Dose: 75 mg Docusate Sodium (Colace) 100 mg PO DAILY PRN PRN Reason: constipation Epoetin Tom (Procrit) 8,000 unit IV TTS [facility] Gabapentin (Neurontin) 100 mg PO BID [facility] Last Admin: 02/22/17 09:53 Dose: 100 mg Heparin Sodium (Porcine) (Heparin) 5,000 units SC Q12 [facility] Last Admin: 02/22/17 09:54 Dose: 5,000 units Hydralazine HCl (Apresoline) 100 mg PO Q8 [facility] Last Admin: 02/22/17 14:56 Dose: 100 mg Hydromorphone HCl (Dilaudid) 1 mg IVP Q6H PRN PRN Reason: Pain, moderate (4-7) Last Admin: 02/22/17 09:49 Dose: 1 mg Ceftriaxone Sodium (Rocephin Iv 1 Gm Duplex) 50 mls @ 50 mls/30 min IVPB DAILY [facility] Last Admin: 02/22/17 09:54 Dose: 50 mls/30 min Insulin Aspart (Novolog Mix 70/30 (70/30 Units/Ml)) 10 units SC AC [facility] Stop: 02/22/17 22:01 Last Admin: 02/22/17 13:53 Dose: 10 units Insulin Glargine (Lantus) 20 unit SC HS [facility] Last Admin: 02/21/17 22:40 Dose: 20 units Isosorbide Mononitrate (Imdur) 60 mg PO DAILY [facility] Last Admin: 02/22/17 09:54 Dose: 60 mg Levothyroxine Sodium (Synthroid) 50 mcg PO DAILY@0630 [facility] Last Admin: 02/22/17 06:12 Dose: 50 mcg Multivitamins/Minerals (Therapeutic-M Tab) 1 tab PO DAILY [facility] Last Admin: 02/22/17 09:53 Dose: 1 tab Pantoprazole Sodium (Protonix Ec Tab) 40 mg PO DAILY [facility] Last Admin: 02/22/17 09:53 Dose: 40 mg Ranolazine (Ranexa) 500 mg PO BID [facility] Last Admin: 02/22/17 09:53 Dose: 500 mg Rosuvastatin Calcium (Crestor) 10 mg PO HS [facility] Last Admin: 02/21/17 22:40 Dose: 10 mg Sertraline HCl (Zoloft) 50 mg PO DAILY [facility] Last Admin: 02/22/17 09:53 Dose: 50 mg - Labs Labs: 02/21/17 11:32 02/21/17 11:32 - Respiratory Exam Additional comments: Lungs clear - Cardiovascular Exam Cardiovascular Exam: REGULAR RHYTHM - Extremities Exam Additional comments: B/L BKA Assessment and Plan - Assessment and Plan (Free Text) Assessment: ESRD on HD HTN Volume overload corrected IDDM Plan: For dialysis tomorrow Labs with dialysis
--- NOTE | 2017-02-22 16:15 | CP.PCM.CON ---
Past Patient History - Infectious Disease Hx of Infectious Diseases: None - Tetanus Immunizations Tetanus Immunization: >10 years Ago - Past Medical History & Family History Past Medical History?: Yes - Past Social History Smoking Status: Never Smoked - CARDIAC Hx Cardiac Disorders: Yes Hx Atrial Fibrillation: Yes Hx Cardia Arrhythmia: Yes Hx Congestive Heart Failure: Yes Hx Hypercholesterolemia: Yes Hx Hypertension: Yes - PULMONARY Hx Respiratory Disorders: Yes Hx Asthma: Yes Hx Bronchitis: Yes Hx Chronic Obstructive Pulmonary Disease (COPD): Yes Hx Pneumonia: Yes - NEUROLOGICAL Hx Neurological Disorder: Yes Hx Alzheimer's Disease: Yes Hx Seizures: Yes - HEENT Hx HEENT Problems: Yes Hx Blind: Yes (legally blind) Hx Cataracts: Yes - RENAL Hx Chronic Kidney Disease: Yes - ENDOCRINE/METABOLIC Hx Endocrine Disorders: Yes Hx Diabetes Mellitus Type 2: Yes Hx Hypothyroidism: Yes - HEMATOLOGICAL/ONCOLOGICAL Hx Blood Disorders: Yes Hx Anemia: Yes - INTEGUMENTARY Hx Dermatological Problems: No - MUSCULOSKELETAL/RHEUMATOLOGICAL Hx Falls: No - GASTROINTESTINAL Hx Gastrointestinal Disorders: Yes Hx Gall Bladder Disease: Yes - GENITOURINARY/GYNECOLOGICAL Hx Genitourinary Disorders: No Hx Sexually Transmitted Disorders: No - PSYCHIATRIC Hx Psychophysiologic Disorder: Yes Hx Anxiety: Yes Hx Depression: Yes Hx Substance Use: No - SURGICAL HISTORY Hx Surgeries: Yes Hx Amputation: Yes Hx Cholecystectomy: Yes (2011) 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/2009) Hx Coronary Stent: Yes - ANESTHESIA Hx Anesthesia: Yes Hx Anesthesia Reactions: No Hx Malignant Hyperthermia: No Meds Allergies/Adverse Reactions: Allergies Allergy/AdvReac Type Severity Reaction Status Date / Time acetaminophen [From Percocet] Allergy RASH Verified 02/03/17 13:47 atenolol Allergy RASH Verified 02/03/17 13:47 digoxin Allergy RASH Verified 02/03/17 13:47 milk Allergy ITCHING Verified 02/03/17 13:47 morphine Allergy ITCHING Verified 02/03/17 13:47 oxycodone HCl [From Percocet] Allergy RASH Verified 02/03/17 13:47 - Medications Medications: Current Medications Amlodipine Besylate (Norvasc) 10 mg PO DAILY [facility] Last Admin: 02/22/17 09:52 Dose: 10 mg Aspirin (Aspirin Chewable) 81 mg PO DAILY [facility] Last Admin: 02/22/17 09:53 Dose: 81 mg Calcitriol (Rocaltrol) 0.25 mcg PO DAILY [facility] Last Admin: 02/22/17 09:52 Dose: 0.25 mcg Calcium Carbonate (Oscal) 1,000 mg PO BID [facility] Last Admin: 02/22/17 09:55 Dose: 1,000 mg Carvedilol (Coreg) 25 mg PO BID [facility] Last Admin: 02/22/17 09:53 Dose: 25 mg Clopidogrel Bisulfate (Plavix) 75 mg PO DAILY [facility] Last Admin: 02/22/17 09:54 Dose: 75 mg Docusate Sodium (Colace) 100 mg PO DAILY PRN PRN Reason: constipation Epoetin Tom (Procrit) 8,000 unit IV TTS [facility] Gabapentin (Neurontin) 100 mg PO BID [facility] Last Admin: 02/22/17 09:53 Dose: 100 mg Heparin Sodium (Porcine) (Heparin) 5,000 units SC Q12 [facility] Last Admin: 02/22/17 09:54 Dose: 5,000 units Hydralazine HCl (Apresoline) 100 mg PO Q8 [facility] Last Admin: 02/22/17 14:56 Dose: 100 mg Hydromorphone HCl (Dilaudid) 1 mg IVP Q6H PRN PRN Reason: Pain, moderate (4-7) Last Admin: 02/22/17 09:49 Dose: 1 mg Ceftriaxone Sodium (Rocephin Iv 1 Gm Duplex) 50 mls @ 50 mls/30 min IVPB DAILY [facility] Last Admin: 02/22/17 09:54 Dose: 50 mls/30 min Insulin Aspart (Novolog Mix 70/30 (70/30 Units/Ml)) 10 units SC AC [facility] Stop: 02/22/17 22:01 Last Admin: 02/22/17 13:53 Dose: 10 units Insulin Glargine (Lantus) 20 unit SC HS [facility] Last Admin: 02/21/17 22:40 Dose: 20 units Isosorbide Mononitrate (Imdur) 60 mg PO DAILY [facility] Last Admin: 02/22/17 09:54 Dose: 60 mg Levothyroxine Sodium (Synthroid) 50 mcg PO DAILY@0630 [facility] Last Admin: 02/22/17 06:12 Dose: 50 mcg Multivitamins/Minerals (Therapeutic-M Tab) 1 tab PO DAILY [facility] Last Admin: 02/22/17 09:53 Dose: 1 tab Pantoprazole Sodium (Protonix Ec Tab) 40 mg PO DAILY [facility] Last Admin: 02/22/17 09:53 Dose: 40 mg Ranolazine (Ranexa) 500 mg PO BID [facility] Last Admin: 02/22/17 09:53 Dose: 500 mg Rosuvastatin Calcium (Crestor) 10 mg PO HS [facility] Last Admin: 02/21/17 22:40 Dose: 10 mg Sertraline HCl (Zoloft) 50 mg PO DAILY [facility] Last Admin: 02/22/17 09:53 Dose: 50 mg Results - Vital Signs Recent Vital Signs: Last Vital Signs Temp 98.1 F 02/22/17 07:15 Pulse 60 02/22/17 07:15 Resp 18 02/22/17 07:15 BP 155/60 H 02/22/17 09:53 Pulse Ox 100 02/22/17 07:15 - Labs Result Diagrams: 02/21/17 11:32 02/21/17 11:32 Labs: Laboratory Results - last 24 hr 02/21/17 02/21/17 02/22/17 17:53 22:07 06:48 POC Glucose (mg/dL) 99 145 H 201 H 02/22/17 11:44 POC Glucose (mg/dL) 167 H Assessment & Plan - Assessment and Plan (Free Text) Assessment: 36 year old female with Kleinfelters, Severe PVD with bilateral BKA, ESRD on HD , acute on chronic diastolic CHF, Brittle Diabetic HTN, mild pulmonic stenosis CHF is now improved s/p HD, with clear lungs and no evidence of shortness of breath.
--- NOTE | 2017-02-22 17:23 | SPECPROC ---
Procedure: Ultrasound and fluoroscopically placed Right upper extremity PICC. Clinical indication: Long-term IV antibiotics. Technique: The relative risks and indications of the procedure were explained to the patient and written informed consent obtained. The patient was placed supine on the angiographic table and the right arm prepped and draped in the usual sterile fashion. A tourniquet was applied to the right axilla. 1% lidocaine was used to anesthetize the skin and soft tissues at the puncture site above the elbow. The right basilic vein was punctured under direct ultrasound guidance with a micropuncture set. A 0.018 guidewire was advanced however, the wire could only be advanced to the level of the subclavian vein. The previously placed tunneled dialysis catheter was noted. A 4 Khmer sing -lumen PICC size 25 cm long was advanced to the subclavian vein/SVC junction. The catheter was flushed and secured. The patient tolerated the procedure well. Impression: Ultrasound and fluoroscopically placed right upper extremity PICC. A 4 Khmer single-lumen 25 centimeter PICC was placed with distal tip at the subclavian vein/SVC junction. Possible occlusion/narrowing involving the proximal SVC.
[2017-02-22] MEDS: (Lantus) Insulin Glargine, Recombinant SC SCH (21:43)
--- NOTE | 2017-02-22 22:37 | CP.PCM.PN ---
Subjective - Date & Time of Evaluation Date of Evaluation: 02/22/17 Time of Evaluation: 22:36 - Subjective Subjective: uncontrolled IDDM Objective - Vital Signs/Intake and Output Vital Signs (last 24 hours): Temp Pulse Resp BP Pulse Ox 97.8 F 67 20 109/67 99 02/22/17 15:00 02/22/17 15:00 02/22/17 15:00 02/22/17 18:26 02/22/17 15:00 Intake and Output: 02/22/17 02/23/17 18:59 06:59 Intake Total 720 Balance 720 - Medications Medications: Current Medications Amlodipine Besylate (Norvasc) 10 mg PO DAILY [facility] Last Admin: 02/22/17 09:52 Dose: 10 mg Aspirin (Aspirin Chewable) 81 mg PO DAILY [facility] Last Admin: 02/22/17 09:53 Dose: 81 mg Calcitriol (Rocaltrol) 0.25 mcg PO DAILY [facility] Last Admin: 02/22/17 09:52 Dose: 0.25 mcg Calcium Carbonate (Oscal) 1,000 mg PO BID [facility] Last Admin: 02/22/17 18:26 Dose: 1,000 mg Carvedilol (Coreg) 25 mg PO BID [facility] Last Admin: 02/22/17 18:26 Dose: 25 mg Clopidogrel Bisulfate (Plavix) 75 mg PO DAILY [facility] Last Admin: 02/22/17 09:54 Dose: 75 mg Docusate Sodium (Colace) 100 mg PO DAILY PRN PRN Reason: constipation Epoetin Tom (Procrit) 8,000 unit IV TTS [facility] Gabapentin (Neurontin) 100 mg PO BID [facility] Last Admin: 02/22/17 18:25 Dose: 100 mg Heparin Sodium (Porcine) (Heparin) 5,000 units SC Q12 [facility] Last Admin: 02/22/17 21:43 Dose: 5,000 units Hydralazine HCl (Apresoline) 100 mg PO Q8 [facility] Last Admin: 02/22/17 21:47 Dose: 100 mg Hydromorphone HCl (Dilaudid) 1 mg IVP Q6H PRN PRN Reason: Pain, moderate (4-7) Last Admin: 02/22/17 16:50 Dose: 1 mg Ceftriaxone Sodium (Rocephin Iv 1 Gm Duplex) 50 mls @ 50 mls/30 min IVPB DAILY [facility] Last Admin: 02/22/17 09:54 Dose: 50 mls/30 min Insulin Glargine (Lantus) 20 unit SC [facility] Last Admin: 02/22/17 21:43 Dose: 20 units Isosorbide Mononitrate (Imdur) 60 mg PO DAILY [facility] Last Admin: 02/22/17 09:54 Dose: 60 mg Levothyroxine Sodium (Synthroid) 50 mcg PO DAILY@0630 [facility] Last Admin: 02/22/17 06:12 Dose: 50 mcg Multivitamins/Minerals (Therapeutic-M Tab) 1 tab PO DAILY [facility] Last Admin: 02/22/17 09:53 Dose: 1 tab Pantoprazole Sodium (Protonix Ec Tab) 40 mg PO DAILY [facility] Last Admin: 02/22/17 09:53 Dose: 40 mg Ranolazine (Ranexa) 500 mg PO BID [facility] Last Admin: 02/22/17 19:05 Dose: 500 mg Rosuvastatin Calcium (Crestor) 10 mg PO [facility] Last Admin: 02/22/17 21:43 Dose: 10 mg Sertraline HCl (Zoloft) 50 mg PO DAILY [facility] Last Admin: 02/22/17 09:53 Dose: 50 mg - Labs Labs: 02/21/17 11:32 02/21/17 11:32 Assessment and Plan (1) Diabetes mellitus, insulin dependent (IDDM), uncontrolled Assessment & Plan: Endocrine consult f/u for uncontrolled IDDM Mr. Saha pt. is 36 y/o admitted to for fluid overload , glucose >500 pt. known to endocrine with uncontrolled IDDM /brittle ,complicated with ESRD on HD , retinopathy /legally blind , CAD s/p CABG , PVD s/p bilateral BKA , neuropathy , gastroparesis . on Novolog medium dose coverage , novolog 8 units tid also with h/o hypothyroidism off synthroid blood glucose log : 120-200 , no hypoglycemia Allergy multiple as per record review Past medical history : as above Past surgical history : as above Psychiatry history : (+) psychiatry disorder Social history : denies smoking , ETOH use , illicit drug use Family history : mother & sister with diabetes ROS: Constitutional: denies fever ,tiredness/weakness .HEENT: denies earache, change in voice .Respiratory: denies cough, sob . CVS :no chest pain, no palpitations . Abdomen : no abdominal pain, s/p nausea /vomiting , no change bowel movement . 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 Extremities : no edema , no tremors .Skin: no itching, no rash Physical exam Well developed AAO x3 , asking for pain medication , poor intake as per nurse in charge VSS HEENT: norm cephalic, atraumatic , no lid lag , no exophthalmos , pale NECK: supple, no palpable lymphadenopathy THYROID: no palpable thyromegaly , not tender CHEST: fair air entry, bilateral, CVS: S1,S2 ABDOMEN: bowel sound present, benign, obese, no wide purple striae , no bruises EXTREMITIES: no edema, clubbing or cyanosis, no palpable hand tremors , bilateral BKA Skin : acanthosis nigricans lab: 02/2016 NTP pro -PSYCHOLOGIST [id number] , troponin (-), ldl 33 , tg 97 , wbc 19.6 ,serum ketone (-) 12/2016 TSH 1.80 , T3 1.22 , T4 7.61, ft4 1.25 Assessment uncontrolled IDDM ESRD on HD PVD s/p b/l BKA diabetes retinopathy /legally blind h/o hypothyroidism CHF plan continue Novolin R low to low dose coverage continue Novolin R to 4 units if eat more than 60% of the meal continue lantus 20 units @ 9pm daily will monitor Status: Acute (2) ESRD on hemodialysis Status: Acute
[2017-02-23] MEDS: Levothyroxine 50 MCG TAB PO SCH (05:30)
--- NOTE | 2017-02-23 09:22 | CP.PCM.PN ---
Subjective - Date & Time of Evaluation Date of Evaluation: 02/23/17 Time of Evaluation: 09:19 - Subjective Subjective: SURGERY NOTE FOR DR. MEDLEY 36M seen and examined at bedside. No complaints this morning with I&D site. Objective - Vital Signs/Intake and Output Vital Signs (last 24 hours): Temp Pulse Resp BP Pulse Ox 98.1 F 69 20 97/52 L 95 02/22/17 23:50 02/22/17 23:50 02/22/17 23:50 02/23/17 05:28 02/22/17 23:50 Intake and Output: 02/23/17 02/23/17 06:59 18:59 Intake Total 500 Balance 500 - Medications Medications: Current Medications Amlodipine Besylate (Norvasc) 10 mg PO DAILY [facility] Last Admin: 02/22/17 09:52 Dose: 10 mg Aspirin (Aspirin Chewable) 81 mg PO DAILY [facility] Last Admin: 02/22/17 09:53 Dose: 81 mg Calcitriol (Rocaltrol) 0.25 mcg PO DAILY [facility] Last Admin: 02/22/17 09:52 Dose: 0.25 mcg Calcium Carbonate (Oscal) 1,000 mg PO BID [facility] Last Admin: 02/22/17 18:26 Dose: 1,000 mg Carvedilol (Coreg) 25 mg PO BID [facility] Last Admin: 02/22/17 18:26 Dose: 25 mg Clopidogrel Bisulfate (Plavix) 75 mg PO DAILY [facility] Last Admin: 02/22/17 09:54 Dose: 75 mg Docusate Sodium (Colace) 100 mg PO DAILY PRN PRN Reason: constipation Epoetin Tom (Procrit) 8,000 unit IV TTS [facility] Gabapentin (Neurontin) 100 mg PO BID [facility] Last Admin: 02/22/17 18:25 Dose: 100 mg Heparin Sodium (Porcine) (Heparin) 5,000 units SC Q12 [facility] Last Admin: 02/22/17 21:43 Dose: 5,000 units Hydralazine HCl (Apresoline) 100 mg PO Q8 [facility] Last Admin: 02/23/17 05:28 Dose: Not Given Hydromorphone HCl (Dilaudid) 1 mg IVP Q6H PRN PRN Reason: Pain, moderate (4-7) Last Admin: 02/23/17 04:52 Dose: 1 mg Ceftriaxone Sodium (Rocephin Iv 1 Gm Duplex) 50 mls @ 50 mls/30 min IVPB DAILY [facility] Last Admin: 02/22/17 09:54 Dose: 50 mls/30 min Insulin Glargine (Lantus) [address] [facility] Last Admin: 02/22/17 21:43 Dose: 20 units Isosorbide Mononitrate (Imdur) 60 mg PO DAILY [facility] Last Admin: 02/22/17 09:54 Dose: 60 mg Levothyroxine Sodium (Synthroid) 50 mcg PO DAILY@0630 [facility] Last Admin: 02/23/17 05:30 Dose: 50 mcg Multivitamins/Minerals (Therapeutic-M Tab) 1 tab PO DAILY [facility] Last Admin: 02/22/17 09:53 Dose: 1 tab Pantoprazole Sodium (Protonix Ec Tab) 40 mg PO DAILY [facility] Last Admin: 02/22/17 09:53 Dose: 40 mg Ranolazine (Ranexa) 500 mg PO BID [facility] Last Admin: 02/22/17 19:05 Dose: 500 mg Rosuvastatin Calcium (Crestor) 10 mg PO HS [facility] Last Admin: 02/22/17 21:43 Dose: 10 mg Sertraline HCl (Zoloft) 50 mg PO DAILY [facility] Last Admin: 02/22/17 09:53 Dose: 50 mg - Labs Labs: 02/21/17 11:32 02/21/17 11:32 - Constitutional Appears: Non-toxic, No Acute Distress - Respiratory Exam Respiratory Exam: Clear to Ausculation Bilateral, NORMAL BREATHING PATTERN - Cardiovascular Exam Cardiovascular Exam: REGULAR RHYTHM, +S1, +S2 Additional comments: right chest abscess near portacath, drained, dressing CDI Assessment and Plan - Assessment and Plan (Free Text) Assessment: 36F s/p I&D of right chest abscess POD1 - dressing changes - follow up cultures - continue abx - no surgical intervention required Further recs discuss with Dr. Pratibha Muñoz, PGY1
[2017-02-23] MEDS: Ranolazine 500 mg Extended Release Tablets PO SCH ×2 (10:15→17:35)
[2017-02-23] MEDS: EPOETIN ALFA 4,000 UNIT/ML ML Dialysis IV SCH (11:21)
[2017-02-23] MEDS: Pantoprazole 40 mg EC Tab PO SCH (13:54)
[2017-02-23] MEDS: Multivitamin With Minerals Tab PO SCH (13:54)
[2017-02-23] MEDS: cefTRIAXone IV 1 gm in Dextros 50 ML IVPB SCH (14:03)
--- NOTE | 2017-02-23 15:34 | CP.PCM.PN ---
Subjective - Date & Time of Evaluation Date of Evaluation: 02/23/17 Time of Evaluation: 15:32 - Subjective Subjective: less sob less pain Objective - Vital Signs/Intake and Output Vital Signs (last 24 hours): Temp Pulse Resp BP Pulse Ox 98.2 F 69 16 107/43 L 99 02/23/17 09:55 02/23/17 09:45 02/23/17 09:55 02/23/17 12:20 02/23/17 09:55 Intake and Output: 02/23/17 02/23/17 06:59 18:59 Intake Total 500 Balance 500 - Medications Medications: Current Medications Amlodipine Besylate (Norvasc) 10 mg PO DAILY [facility] Last Admin: 02/23/17 13:57 Dose: Not Given Aspirin (Aspirin Chewable) 81 mg PO DAILY [facility] Last Admin: 02/23/17 13:54 Dose: 81 mg Calcitriol (Rocaltrol) 0.25 mcg PO DAILY [facility] Last Admin: 02/23/17 14:04 Dose: 0.25 mcg Calcium Carbonate (Oscal) 1,000 mg PO BID [facility] Last Admin: 02/23/17 10:15 Dose: Not Given Carvedilol (Coreg) 25 mg PO BID [facility] Last Admin: 02/23/17 10:15 Dose: Not Given Clopidogrel Bisulfate (Plavix) 75 mg PO DAILY [facility] Last Admin: 02/23/17 13:53 Dose: 75 mg Docusate Sodium (Colace) 100 mg PO DAILY PRN PRN Reason: constipation Epoetin Tom (Procrit) 8,000 unit IV TTS [facility] Last Admin: 02/23/17 11:21 Dose: 8,000 unit Gabapentin (Neurontin) 100 mg PO BID [facility] Last Admin: 02/23/17 10:15 Dose: Not Given Heparin Sodium (Porcine) (Heparin) 5,000 units SC Q12 [facility] Last Admin: 02/23/17 10:15 Dose: Not Given Hydralazine HCl (Apresoline) 100 mg PO Q8 [facility] Last Admin: 02/23/17 13:57 Dose: Not Given Hydromorphone HCl (Dilaudid) 1 mg IVP Q6H PRN PRN Reason: Pain, moderate (4-7) Last Admin: 02/23/17 13:54 Dose: 1 mg Ceftriaxone Sodium (Rocephin Iv 1 Gm Duplex) 50 mls @ 50 mls/30 min IVPB DAILY [facility] Last Admin: 02/23/17 14:03 Dose: 50 mls/30 min Insulin Glargine (Lantus) 20 unit SC [facility] Last Admin: 02/22/17 21:43 Dose: 20 units Isosorbide Mononitrate (Imdur) 60 mg PO DAILY [facility] Last Admin: 02/23/17 13:54 Dose: 60 mg Levothyroxine Sodium (Synthroid) 50 mcg PO DAILY@0630 [facility] Last Admin: 02/23/17 05:30 Dose: 50 mcg Multivitamins/Minerals (Therapeutic-M Tab) 1 tab PO DAILY [facility] Last Admin: 02/23/17 13:54 Dose: 1 tab Pantoprazole Sodium (Protonix Ec Tab) 40 mg PO DAILY [facility] Last Admin: 02/23/17 13:54 Dose: 40 mg Ranolazine (Ranexa) 500 mg PO BID [facility] Last Admin: 02/23/17 10:15 Dose: Not Given Rosuvastatin Calcium (Crestor) 10 mg PO [facility] Last Admin: 02/22/17 21:43 Dose: 10 mg Sertraline HCl (Zoloft) 50 mg PO DAILY [facility] Last Admin: 02/23/17 13:54 Dose: 50 mg - Labs Labs: 02/21/17 11:32 02/21/17 11:32 - Constitutional Appears: Non-toxic - Head Exam Head Exam: NORMAL INSPECTION - ENT Exam ENT Exam: Mucous Membranes Moist - Respiratory Exam Respiratory Exam: NORMAL BREATHING PATTERN - Cardiovascular Exam Cardiovascular Exam: REGULAR RHYTHM - GI/Abdominal Exam GI & Abdominal Exam: Diminished Bowel Sounds - Neurological Exam Neurological Exam: Alert, Oriented x3 - Psychiatric Exam Psychiatric exam: Normal Affect - Skin Skin Exam: Normal Color Assessment and Plan - Assessment and Plan (Free Text) Assessment: dmid improving chf improving esrf Plan: cont as per orders
--- NOTE | 2017-02-23 20:12 | CP.PCM.PN ---
Subjective - Date & Time of Evaluation Date of Evaluation: 02/23/17 Time of Evaluation: 20:09 - Subjective Subjective: uncontrolled IDDM Objective - Vital Signs/Intake and Output Vital Signs (last 24 hours): Temp Pulse Resp BP Pulse Ox 98.5 F 71 20 138/67 96 02/23/17 16:00 02/23/17 16:00 02/23/17 16:00 02/23/17 17:35 02/23/17 16:00 Intake and Output: 02/23/17 02/24/17 18:59 06:59 Intake Total 540 Balance 540 - Medications Medications: Current Medications Amlodipine Besylate (Norvasc) 10 mg PO DAILY [facility] Last Admin: 02/23/17 13:57 Dose: Not Given Aspirin (Aspirin Chewable) 81 mg PO DAILY [facility] Last Admin: 02/23/17 13:54 Dose: 81 mg Calcitriol (Rocaltrol) 0.25 mcg PO DAILY [facility] Last Admin: 02/23/17 14:04 Dose: 0.25 mcg Calcium Carbonate (Oscal) 1,000 mg PO BID [facility] Last Admin: 02/23/17 17:36 Dose: 1,000 mg Carvedilol (Coreg) 25 mg PO BID [facility] Last Admin: 02/23/17 17:35 Dose: 25 mg Clopidogrel Bisulfate (Plavix) 75 mg PO DAILY [facility] Last Admin: 02/23/17 13:53 Dose: 75 mg Docusate Sodium (Colace) 100 mg PO DAILY PRN PRN Reason: constipation Epoetin Tom (Procrit) 8,000 unit IV TTS [facility] Last Admin: 02/23/17 11:21 Dose: 8,000 unit Gabapentin (Neurontin) 100 mg PO BID [facility] Last Admin: 02/23/17 17:36 Dose: 100 mg Heparin Sodium (Porcine) (Heparin) 5,000 units SC Q12 [facility] Last Admin: 02/23/17 10:15 Dose: Not Given Hydralazine HCl (Apresoline) 100 mg PO Q8 [facility] Last Admin: 02/23/17 13:57 Dose: Not Given Hydromorphone HCl (Dilaudid) 1 mg IVP Q6H PRN PRN Reason: Pain, moderate (4-7) Last Admin: 02/23/17 13:54 Dose: 1 mg Ceftriaxone Sodium (Rocephin Iv 1 Gm Duplex) 50 mls @ 50 mls/30 min IVPB DAILY [facility] Last Admin: 02/23/17 14:03 Dose: 50 mls/30 min Insulin Glargine (Lantus) 20 unit SC [facility] Last Admin: 02/22/17 21:43 Dose: 20 units Insulin Human Regular (Novolin R) 0 unit SC ACHS [facility] PRN Reason: Protocol Isosorbide Mononitrate (Imdur) 60 mg PO DAILY [facility] Last Admin: 02/23/17 13:54 Dose: 60 mg Levothyroxine Sodium (Synthroid) 50 mcg PO DAILY@0630 [facility] Last Admin: 02/23/17 05:30 Dose: 50 mcg Multivitamins/Minerals (Therapeutic-M Tab) 1 tab PO DAILY [facility] Last Admin: 02/23/17 13:54 Dose: 1 tab Pantoprazole Sodium (Protonix Ec Tab) 40 mg PO DAILY [facility] Last Admin: 02/23/17 13:54 Dose: 40 mg Ranolazine (Ranexa) 500 mg PO BID [facility] Last Admin: 02/23/17 17:35 Dose: 500 mg Rosuvastatin Calcium (Crestor) 10 mg PO [facility] Last Admin: 02/22/17 21:43 Dose: 10 mg Sertraline HCl (Zoloft) 50 mg PO DAILY [facility] Last Admin: 02/23/17 13:54 Dose: 50 mg - Labs Labs: 02/21/17 11:32 02/21/17 11:32 Assessment and Plan (1) Diabetes mellitus, insulin dependent (IDDM), uncontrolled Assessment & Plan: Endocrine consult f/u for uncontrolled IDDM Mr. Saha pt. is 36 y/o admitted to for fluid overload , glucose >500 pt. known to endocrine with uncontrolled IDDM /brittle ,complicated with ESRD on HD , retinopathy /legally blind , CAD s/p CABG , PVD s/p bilateral BKA , neuropathy , gastroparesis . & hypothyroidism resumed synthroid 50 mcg po qd blood glucose log : 200-290 , no hypoglycemia Allergy multiple as per record review Past medical history : as above Past surgical history : as above Psychiatry history : (+) psychiatry disorder Social history : denies smoking , ETOH use , illicit drug use Family history : mother & sister with diabetes ROS: Constitutional: denies fever ,tiredness/weakness .HEENT: denies earache, change in voice .Respiratory: denies cough, sob . CVS :no chest pain, no palpitations . Abdomen : no abdominal pain, s/p nausea /vomiting , no change bowel movement . 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 Extremities : no edema , no tremors .Skin: no itching, no rash Physical exam Well developed AAO x3 , asking for pain medication , poor intake as per nurse in charge VSS HEENT: norm cephalic, atraumatic , no lid lag , no exophthalmos , pale NECK: supple, no palpable lymphadenopathy THYROID: no palpable thyromegaly , not tender CHEST: fair air entry, bilateral, CVS: S1,S2 ABDOMEN: bowel sound present, benign, obese, no wide purple striae , no bruises EXTREMITIES: no edema, clubbing or cyanosis, no palpable hand tremors , bilateral BKA Skin : acanthosis nigricans lab: 02/2016 NTP pro -PROPOSAL DIRECTOR [id number] , troponin (-), ldl 33 , tg 97 , wbc 19.6 ,serum ketone (-) 12/2016 TSH 1.80 , T3 1.22 , T4 7.61, ft4 1.25 Assessment uncontrolled IDDM ESRD on HD PVD s/p b/l BKA diabetes retinopathy /legally blind hypothyroidism , resumed levothyroxine 50 mcg qd CHF plan resume Novolin R low to low dose coverage off Novolin R to 4 units if eat more than 60% of the meal ?? continue lantus 20 units @ 9pm daily continue synthroid 50 mcg po qd obtain TSH & free T4 will monitor Status: Acute (2) ESRD on hemodialysis Status: Acute
[2017-02-23] MEDS: (Novolin R) Insulin Human Regular 100 units/ml vial SC SCH (22:45)
[2017-02-23] MEDS: (Lantus) Insulin Glargine, Recombinant SC SCH (22:47)
[2017-02-24] MEDS: (Novolin R) Insulin Human Regular 100 units/ml vial SC SCH ×4 (07:19→21:40)
[2017-02-24] MEDS: Levothyroxine 50 MCG TAB PO SCH (07:38)
[2017-02-24] MEDS: cefTRIAXone IV 1 gm in Dextros 50 ML IVPB SCH (09:29)
[2017-02-24] MEDS: Ranolazine 500 mg Extended Release Tablets PO SCH ×2 (09:31→18:05)
[2017-02-24] MEDS: Pantoprazole 40 mg EC Tab PO SCH (09:32)
[2017-02-24] MEDS: Multivitamin With Minerals Tab PO SCH (09:32)
--- NOTE | 2017-02-24 10:53 | CP.PCM.PN ---
Subjective - Date & Time of Evaluation Date of Evaluation: 02/24/17 Time of Evaluation: 10:50 - Subjective Subjective: less sob feels castro erazo Objective - Vital Signs/Intake and Output Vital Signs (last 24 hours): Temp Pulse Resp BP Pulse Ox 97.9 F 68 20 165/75 H 95 02/23/17 23:50 02/23/17 23:50 02/23/17 23:50 02/24/17 09:33 02/23/17 23:50 - Medications Medications: Current Medications Amlodipine Besylate (Norvasc) 10 mg PO DAILY [facility] Last Admin: 02/24/17 09:33 Dose: 10 mg Aspirin (Aspirin Chewable) 81 mg PO DAILY [facility] Last Admin: 02/24/17 09:32 Dose: 81 mg Calcitriol (Rocaltrol) 0.25 mcg PO DAILY [facility] Last Admin: 02/24/17 09:33 Dose: 0.25 mcg Calcium Carbonate (Oscal) 1,000 mg PO BID [facility] Last Admin: 02/24/17 09:32 Dose: 1,000 mg Carvedilol (Coreg) 25 mg PO BID [facility] Last Admin: 02/24/17 09:33 Dose: 25 mg Clopidogrel Bisulfate (Plavix) 75 mg PO DAILY [facility] Last Admin: 02/24/17 09:31 Dose: 75 mg Docusate Sodium (Colace) 100 mg PO DAILY PRN PRN Reason: constipation Epoetin Tom (Procrit) 8,000 unit IV TTS [facility] Last Admin: 02/23/17 11:21 Dose: 8,000 unit Gabapentin (Neurontin) 100 mg PO BID [facility] Last Admin: 02/24/17 09:33 Dose: 100 mg Heparin Sodium (Porcine) (Heparin) 5,000 units SC Q12 [facility] Last Admin: 02/24/17 09:33 Dose: 5,000 units Hydralazine HCl (Apresoline) 100 mg PO Q8 [facility] Last Admin: 02/24/17 05:38 Dose: 100 mg Hydromorphone HCl (Dilaudid) 1 mg IVP Q6H PRN PRN Reason: Pain, moderate (4-7) Last Admin: 02/24/17 09:26 Dose: 1 mg Ceftriaxone Sodium (Rocephin Iv 1 Gm Duplex) 50 mls @ 50 mls/30 min IVPB DAILY [facility] Last Admin: 02/24/17 09:29 Dose: 50 mls/30 min Insulin Glargine (Lantus) 20 unit SC [facility] Last Admin: 02/23/17 22:47 Dose: 20 units Insulin Human Regular (Novolin R) 0 unit SC [facility] PRN Reason: Protocol Last Admin: 02/24/17 07:19 Dose: Not Given Isosorbide Mononitrate (Imdur) 60 mg PO DAILY [facility] Last Admin: 02/24/17 09:31 Dose: 60 mg Levothyroxine Sodium (Synthroid) 50 mcg PO DAILY@30 [facility] Last Admin: 02/24/17 07:38 Dose: 50 mcg Multivitamins/Minerals (Therapeutic-M Tab) 1 tab PO DAILY [facility] Last Admin: 02/24/17 09:32 Dose: 1 tab Pantoprazole Sodium (Protonix Ec Tab) 40 mg PO DAILY [facility] Last Admin: 02/24/17 09:32 Dose: 40 mg Ranolazine (Ranexa) 500 mg PO BID [facility] Last Admin: 02/24/17 09:31 Dose: 500 mg Rosuvastatin Calcium (Crestor) 10 mg PO [facility] Last Admin: 02/23/17 22:44 Dose: 10 mg Sertraline HCl (Zoloft) 50 mg PO DAILY [facility] Last Admin: 02/24/17 09:31 Dose: 50 mg - Labs Labs: 02/21/17 11:32 02/21/17 11:32 - Constitutional Appears: Non-toxic - Head Exam Head Exam: NORMAL INSPECTION - Eye Exam Eye Exam: Conjunctival injection - ENT Exam ENT Exam: Normal Exam - Neck Exam Neck Exam: Full ROM - Respiratory Exam Respiratory Exam: Clear to Ausculation Bilateral - Cardiovascular Exam Cardiovascular Exam: REGULAR RHYTHM - GI/Abdominal Exam GI & Abdominal Exam: Soft - Rectal Exam Rectal Exam: NORMAL INSPECTION - Back Exam Back Exam: CVA tenderness (L) - Psychiatric Exam Psychiatric exam: Normal Affect - Skin Skin Exam: Pallor Assessment and Plan - Assessment and Plan (Free Text) Assessment: dmid improved acex CHF IMPROVING ESRF Plan: MY D/C AFTER DIALYSIS [place] IF STABLE
--- NOTE | 2017-02-24 13:00 | CP.PCM.PN ---
Subjective - Date & Time of Evaluation Date of Evaluation: 02/24/17 Time of Evaluation: 12:58 - Subjective Subjective: no events overnight Objective - Vital Signs/Intake and Output Vital Signs (last 24 hours): Temp Pulse Resp BP Pulse Ox 97.9 F 68 20 165/75 H 95 02/23/17 23:50 02/23/17 23:50 02/23/17 23:50 02/24/17 09:33 02/23/17 23:50 - Medications Medications: Current Medications Amlodipine Besylate (Norvasc) 10 mg PO DAILY [facility] Last Admin: 02/24/17 09:33 Dose: 10 mg Aspirin (Aspirin Chewable) 81 mg PO DAILY [facility] Last Admin: 02/24/17 09:32 Dose: 81 mg Calcitriol (Rocaltrol) 0.25 mcg PO DAILY [facility] Last Admin: 02/24/17 09:33 Dose: 0.25 mcg Calcium Carbonate (Oscal) 1,000 mg PO BID [facility] Last Admin: 02/24/17 09:32 Dose: 1,000 mg Carvedilol (Coreg) 25 mg PO BID [facility] Last Admin: 02/24/17 09:33 Dose: 25 mg Clopidogrel Bisulfate (Plavix) 75 mg PO DAILY [facility] Last Admin: 02/24/17 09:31 Dose: 75 mg Docusate Sodium (Colace) 100 mg PO DAILY PRN PRN Reason: constipation Epoetin Tom (Procrit) 8,000 unit IV TTS [facility] Last Admin: 02/23/17 11:21 Dose: 8,000 unit Gabapentin (Neurontin) 100 mg PO BID [facility] Last Admin: 02/24/17 09:33 Dose: 100 mg Heparin Sodium (Porcine) (Heparin) 5,000 units SC Q12 [facility] Last Admin: 02/24/17 09:33 Dose: 5,000 units Hydralazine HCl (Apresoline) 100 mg PO Q8 [facility] Last Admin: 02/24/17 05:38 Dose: 100 mg Hydromorphone HCl (Dilaudid) 1 mg IVP Q6H PRN PRN Reason: Pain, moderate (4-7) Last Admin: 02/24/17 09:26 Dose: 1 mg Ceftriaxone Sodium (Rocephin Iv 1 Gm Duplex) 50 mls @ 50 mls/30 min IVPB DAILY [facility] Last Admin: 02/24/17 09:29 Dose: 50 mls/30 min Insulin Glargine (Lantus) 20 unit SC [facility] Last Admin: 02/23/17 22:47 Dose: 20 units Insulin Human Regular (Novolin R) 0 unit SC [facility] PRN Reason: Protocol Last Admin: 02/24/17 12:43 Dose: 3 unit Isosorbide Mononitrate (Imdur) 60 mg PO DAILY [facility] Last Admin: 02/24/17 09:31 Dose: 60 mg Levothyroxine Sodium (Synthroid) 50 mcg PO DAILY@0630 [facility] Last Admin: 02/24/17 07:38 Dose: 50 mcg Multivitamins/Minerals (Therapeutic-M Tab) 1 tab PO DAILY [facility] Last Admin: 02/24/17 09:32 Dose: 1 tab Pantoprazole Sodium (Protonix Ec Tab) 40 mg PO DAILY [facility] Last Admin: 02/24/17 09:32 Dose: 40 mg Ranolazine (Ranexa) 500 mg PO BID [facility] Last Admin: 02/24/17 09:31 Dose: 500 mg Rosuvastatin Calcium (Crestor) 10 mg PO [facility] Last Admin: 02/23/17 22:44 Dose: 10 mg Sertraline HCl (Zoloft) 50 mg PO DAILY [facility] Last Admin: 02/24/17 09:31 Dose: 50 mg - Labs Labs: 02/21/17 11:32 02/21/17 11:32 - Constitutional Appears: Non-toxic, No Acute Distress - Head Exam Head Exam: NORMAL INSPECTION - Eye Exam Eye Exam: Normal appearance - ENT Exam ENT Exam: Mucous Membranes Moist - Neck Exam Neck Exam: Normal Inspection - Respiratory Exam Respiratory Exam: NORMAL BREATHING PATTERN - Cardiovascular Exam Cardiovascular Exam: REGULAR RHYTHM - Extremities Exam Additional comments: bilateral knee amputations no edema Assessment and Plan - Assessment and Plan (Free Text) Plan: esrd/htn/dm/anemia hd tts, continue per schedule lytes ok , no labs today anemia stable, monitor Hb bp, continue current meds contineu calcitriol and calcium carbonate, monitor ca and phos levels dm per primary team
[2017-02-24 14:42] LABS: T3 1.01 nmol/L (1.49-2.60)
[2017-02-24] MEDS: (Lantus) Insulin Glargine, Recombinant SC SCH (21:35)
[2017-02-25] MEDS: Levothyroxine 50 MCG TAB PO SCH (07:19)
[2017-02-25] MEDS: (Novolin R) Insulin Human Regular 100 units/ml vial SC SCH ×4 (08:47→22:32)
[2017-02-25] MEDS: Pantoprazole 40 mg EC Tab PO SCH (09:38)
[2017-02-25] MEDS: Ranolazine 500 mg Extended Release Tablets PO SCH ×2 (09:38→18:19)
[2017-02-25] MEDS: Multivitamin With Minerals Tab PO SCH (09:38)
[2017-02-25] MEDS: cefTRIAXone IV 1 gm in Dextros 50 ML IVPB SCH (09:40)
--- NOTE | 2017-02-25 10:58 | CP.PCM.PN ---
Subjective - Date & Time of Evaluation Date of Evaluation: 02/25/17 Time of Evaluation: 10:50 - Subjective Subjective: No c/o SOB Comfortable in bed Objective - Vital Signs/Intake and Output Vital Signs (last 24 hours): Temp Pulse Resp BP Pulse Ox 98.1 F 71 20 176/71 H 96 02/25/17 07:44 02/25/17 07:44 02/25/17 07:44 02/25/17 09:40 02/25/17 07:44 Intake and Output: 02/25/17 02/25/17 06:59 18:59 Intake Total 240 Balance 240 - Medications Medications: Current Medications Amlodipine Besylate (Norvasc) 10 mg PO DAILY [facility] Last Admin: 02/25/17 09:38 Dose: 10 mg Aspirin (Aspirin Chewable) 81 mg PO DAILY [facility] Last Admin: 02/24/17 09:32 Dose: 81 mg Calcitriol (Rocaltrol) 0.25 mcg PO DAILY [facility] Last Admin: 02/25/17 09:38 Dose: 0.25 mcg Calcium Carbonate (Oscal) 1,000 mg PO BID [facility] Last Admin: 02/25/17 09:36 Dose: 1,000 mg Carvedilol (Coreg) 25 mg PO BID [facility] Last Admin: 02/25/17 09:40 Dose: 25 mg Clopidogrel Bisulfate (Plavix) 75 mg PO DAILY [facility] Last Admin: 02/25/17 09:36 Dose: 75 mg Docusate Sodium (Colace) 100 mg PO DAILY PRN PRN Reason: constipation Epoetin Tom (Procrit) 8,000 unit IV TTS [facility] Last Admin: 02/23/17 11:21 Dose: 8,000 unit Gabapentin (Neurontin) 100 mg PO BID [facility] Last Admin: 02/25/17 09:38 Dose: 100 mg Heparin Sodium (Porcine) (Heparin) 5,000 units SC Q12 [facility] Last Admin: 02/25/17 09:38 Dose: 5,000 units Hydralazine HCl (Apresoline) 100 mg PO Q8 [facility] Last Admin: 02/25/17 07:00 Dose: 100 mg Hydromorphone HCl (Dilaudid) 1 mg IVP Q6H PRN PRN Reason: Pain, moderate (4-7) Last Admin: 02/25/17 09:36 Dose: 1 mg Ceftriaxone Sodium (Rocephin Iv 1 Gm Duplex) 50 mls @ 50 mls/30 min IVPB DAILY [facility] Last Admin: 02/24/17 09:29 Dose: 50 mls/30 min Insulin Glargine (Lantus) 20 unit SC HS [facility] Last Admin: 02/24/17 21:35 Dose: 20 units Insulin Human Regular (Novolin R) 0 unit SC ACHS [facility] PRN Reason: Protocol Last Admin: 02/25/17 08:47 Dose: Not Given Isosorbide Mononitrate (Imdur) 60 mg PO DAILY [facility] Last Admin: 02/25/17 09:36 Dose: 60 mg Levothyroxine Sodium (Synthroid) 50 mcg PO DAILY@0630 [facility] Last Admin: 02/25/17 07:19 Dose: 50 mcg Multivitamins/Minerals (Therapeutic-M Tab) 1 tab PO DAILY [facility] Last Admin: 02/25/17 09:38 Dose: 1 tab Pantoprazole Sodium (Protonix Ec Tab) 40 mg PO DAILY [facility] Last Admin: 02/25/17 09:38 Dose: 40 mg Ranolazine (Ranexa) 500 mg PO BID [facility] Last Admin: 02/25/17 09:38 Dose: 500 mg Rosuvastatin Calcium (Crestor) 10 mg PO [facility] Last Admin: 02/24/17 21:32 Dose: 10 mg Sertraline HCl (Zoloft) 50 mg PO DAILY [facility] Last Admin: 02/25/17 09:38 Dose: 50 mg - Labs Labs: 02/21/17 11:32 02/21/17 11:32 - Respiratory Exam Respiratory Exam: NORMAL BREATHING PATTERN Additional comments: Lungs clear - Cardiovascular Exam Cardiovascular Exam: REGULAR RHYTHM - Extremities Exam Additional comments: B/L BKA Assessment and Plan - Assessment and Plan (Free Text) Assessment: ESRD on HD CAD/CABG HTN IDDM Plan: Stable on dialysis Labs pending Continue HD per schedule
--- NOTE | 2017-02-25 17:56 | CP.PCM.PN ---
Subjective - Date & Time of Evaluation Date of Evaluation: 02/25/17 Time of Evaluation: 17:52 - Subjective Subjective: pt has pain neck and back Objective - Vital Signs/Intake and Output Vital Signs (last 24 hours): Temp Pulse Resp BP Pulse Ox 98.1 F 71 20 176/71 H 96 02/25/17 07:44 02/25/17 08:00 02/25/17 07:44 02/25/17 09:40 02/25/17 07:44 Intake and Output: 02/25/17 02/25/17 06:59 18:59 Intake Total 240 Balance 240 - Medications Medications: Current Medications Amlodipine Besylate (Norvasc) 10 mg PO DAILY [facility] Last Admin: 02/25/17 09:38 Dose: 10 mg Aspirin (Aspirin Chewable) 81 mg PO DAILY [facility] Last Admin: 02/25/17 09:40 Dose: 81 mg Calcitriol (Rocaltrol) 0.25 mcg PO DAILY [facility] Last Admin: 02/25/17 09:38 Dose: 0.25 mcg Calcium Carbonate (Oscal) 1,000 mg PO BID [facility] Last Admin: 02/25/17 09:36 Dose: 1,000 mg Carvedilol (Coreg) 25 mg PO BID [facility] Last Admin: 02/25/17 09:40 Dose: 25 mg Clopidogrel Bisulfate (Plavix) 75 mg PO DAILY [facility] Last Admin: 02/25/17 09:36 Dose: 75 mg Docusate Sodium (Colace) 100 mg PO DAILY PRN PRN Reason: constipation Epoetin Tom (Procrit) 8,000 unit IV TTS [facility] Last Admin: 02/23/17 11:21 Dose: 8,000 unit Gabapentin (Neurontin) 100 mg PO BID [facility] Last Admin: 02/25/17 09:38 Dose: 100 mg Heparin Sodium (Porcine) (Heparin) 5,000 units SC Q12 [facility] Last Admin: 02/25/17 09:38 Dose: 5,000 units Hydralazine HCl (Apresoline) 100 mg PO Q8 [facility] Last Admin: 02/25/17 13:23 Dose: 100 mg Hydromorphone HCl (Dilaudid) 1 mg IVP Q6H PRN PRN Reason: Pain, moderate (4-7) Last Admin: 02/25/17 15:44 Dose: 1 mg Ceftriaxone Sodium (Rocephin Iv 1 Gm Duplex) 50 mls @ 50 mls/30 min IVPB DAILY [facility] Last Admin: 02/25/17 09:40 Dose: 50 mls/30 min Insulin Glargine (Lantus) 20 unit SC [facility] Last Admin: 02/24/17 21:35 Dose: 20 units Insulin Human Regular (Novolin R) 0 unit SC [facility] PRN Reason: Protocol Last Admin: 02/25/17 12:00 Dose: Not Given Isosorbide Mononitrate (Imdur) 60 mg PO DAILY [facility] Last Admin: 02/25/17 09:36 Dose: 60 mg Levothyroxine Sodium (Synthroid) 50 mcg PO DAILY@0630 [facility] Last Admin: 02/25/17 07:19 Dose: 50 mcg Multivitamins/Minerals (Therapeutic-M Tab) 1 tab PO DAILY [facility] Last Admin: 02/25/17 09:38 Dose: 1 tab Pantoprazole Sodium (Protonix Ec Tab) 40 mg PO DAILY [facility] Last Admin: 02/25/17 09:38 Dose: 40 mg Ranolazine (Ranexa) 500 mg PO BID [facility] Last Admin: 02/25/17 09:38 Dose: 500 mg Rosuvastatin Calcium (Crestor) 10 mg PO [facility] Last Admin: 02/24/17 21:32 Dose: 10 mg Sertraline HCl (Zoloft) 50 mg PO DAILY [facility] Last Admin: 02/25/17 09:38 Dose: 50 mg - Labs Labs: 02/21/17 11:32 02/21/17 11:32 - Constitutional Appears: Non-toxic - Head Exam Head Exam: NORMAL INSPECTION - Eye Exam Eye Exam: Conjunctival injection Additional comments: legaly blind - ENT Exam ENT Exam: Normal Exam, Normal Oropharynx - Neck Exam Neck Exam: Full ROM - Respiratory Exam Respiratory Exam: Clear to Ausculation Bilateral - Cardiovascular Exam Cardiovascular Exam: REGULAR RHYTHM - GI/Abdominal Exam GI & Abdominal Exam: Normal Bowel Sounds - Rectal Exam Rectal Exam: NORMAL INSPECTION - Exam Additional comments: ambiguos genetalia - Neurological Exam Neurological Exam: Alert, Oriented x3 - Psychiatric Exam Psychiatric exam: Depressed - Skin Skin Exam: Normal Color, Pallor Assessment and Plan - Assessment and Plan (Free Text) Assessment: pain neck pain
[2017-02-25 20:01] LABS: BASO # 0.1 K/uL (0.0-0.2); BASO % 0.6 % (0.0-2.0); EOS # 0.4 K/uL (0.0-0.7); HEMOGLOBIN 9.5 g/dL (12.0-18.0); LYMPH # 2.5 K/uL (1.0-4.3); LYMPH % 18.4 % (20.0-40.0); MEAN CELL VOLUME 87.4 fL (80.0-94.0); MEAN CORPUSCULAR HGB CONC 30.8 g/dL (33.0-37.0); MEAN PLATELET VOLUME 8.6 fL (7.2-11.7); MONO # 0.8 K/uL (0.0-0.8); MONO % 5.7 % (0.0-10.0); NEUT # 9.8 K/uL (1.8-7.0); NEUT % 72.3 % (50.0-75.0); RBC 3.51 Mil/uL (4.40-5.90); RED CELL DISTRIBUTION WIDTH 19.2 % (11.5-14.5); WHITE BLOOD COUNT 13.6 K/uL (4.8-10.8)
[2017-02-25 20:11] LABS: CALCIUM 9.1 mg/dl (8.6-10.4)
[2017-02-25] MEDS: (Lantus) Insulin Glargine, Recombinant SC SCH (22:25)
[2017-02-26] MEDS: Levothyroxine 50 MCG TAB PO SCH (05:39)
[2017-02-26] MEDS: (Novolin R) Insulin Human Regular 100 units/ml vial SC SCH ×4 (09:08→22:17)
[2017-02-26] MEDS: Ranolazine 500 mg Extended Release Tablets PO SCH ×2 (10:40→17:56)
[2017-02-26] MEDS: Pantoprazole 40 mg EC Tab PO SCH ×2 (10:40→13:45)
[2017-02-26] MEDS: cefTRIAXone IV 1 gm in Dextros 50 ML IVPB SCH ×2 (10:41→13:44)
[2017-02-26] MEDS: Multivitamin With Minerals Tab PO SCH ×2 (10:41→13:45)
--- NOTE | 2017-02-26 11:33 | CP.PCM.PN ---
Subjective - Date & Time of Evaluation Date of Evaluation: 02/26/17 Time of Evaluation: 09:45 - Subjective Subjective: Seen on dialysis. Apperaes comfortable BP 99/60 Objective - Vital Signs/Intake and Output Vital Signs (last 24 hours): Temp Pulse Resp BP Pulse Ox 98.1 F 67 16 110/91 H 100 02/26/17 10:00 02/26/17 10:00 02/26/17 09:50 02/26/17 10:15 02/26/17 10:00 Intake and Output: 02/26/17 02/26/17 06:59 18:59 Intake Total 420 200 Balance 420 200 - Medications Medications: Current Medications Amlodipine Besylate (Norvasc) 10 mg PO DAILY [facility] Last Admin: 02/26/17 10:40 Dose: Not Given Aspirin (Aspirin Chewable) 81 mg PO DAILY [facility] Last Admin: 02/26/17 10:40 Dose: Not Given Calcitriol (Rocaltrol) 0.25 mcg PO DAILY [facility] Last Admin: 02/26/17 10:40 Dose: Not Given Calcium Carbonate (Oscal) 1,000 mg PO BID [facility] Last Admin: 02/26/17 10:40 Dose: Not Given Carvedilol (Coreg) 25 mg PO BID [facility] Last Admin: 02/26/17 10:40 Dose: Not Given Clopidogrel Bisulfate (Plavix) 75 mg PO DAILY [facility] Last Admin: 02/26/17 10:40 Dose: Not Given Docusate Sodium (Colace) 100 mg PO DAILY PRN PRN Reason: constipation Epoetin Tom (Procrit) 8,000 unit IV TTS [facility] Last Admin: 02/23/17 11:21 Dose: 8,000 unit Gabapentin (Neurontin) 100 mg PO BID [facility] Last Admin: 02/26/17 10:40 Dose: Not Given Heparin Sodium (Porcine) (Heparin) 5,000 units SC Q12 [facility] Last Admin: 02/26/17 10:40 Dose: Not Given Heparin Sodium (Porcine) (Heparin) 4,700 units IVP TTS [facility] Stop: 03/05/17 10:01 Hydralazine HCl (Apresoline) 100 mg PO Q8 [facility] Last Admin: 02/26/17 05:39 Dose: 100 mg Hydromorphone HCl (Dilaudid) 1 mg IVP Q6H PRN PRN Reason: Pain, severe (8-10) Last Admin: 02/26/17 07:21 Dose: 1 mg Ceftriaxone Sodium (Rocephin Iv 1 Gm Duplex) 50 mls @ 50 mls/30 min IVPB DAILY [facility] Last Admin: 02/26/17 10:41 Dose: Not Given Insulin Glargine (Lantus) 20 unit SC [facility] Last Admin: 02/25/17 22:25 Dose: 20 units Insulin Human Regular (Novolin R) 0 unit SC [facility] PRN Reason: Protocol Last Admin: 02/26/17 09:08 Dose: 1 unit Isosorbide Mononitrate (Imdur) 60 mg PO DAILY [facility] Last Admin: 02/26/17 10:40 Dose: Not Given Levothyroxine Sodium (Synthroid) 50 mcg PO DAILY@0630 [facility] Last Admin: 02/26/17 05:39 Dose: 50 mcg Multivitamins/Minerals (Therapeutic-M Tab) 1 tab PO DAILY [facility] Last Admin: 02/26/17 10:41 Dose: Not Given Pantoprazole Sodium (Protonix Ec Tab) 40 mg PO DAILY [facility] Last Admin: 02/26/17 10:40 Dose: Not Given Ranolazine (Ranexa) 500 mg PO BID [facility] Last Admin: 02/26/17 10:40 Dose: Not Given Rosuvastatin Calcium (Crestor) 10 mg PO HS [facility] Last Admin: 02/25/17 22:25 Dose: 10 mg Sertraline HCl (Zoloft) 50 mg PO DAILY [facility] Last Admin: 02/26/17 10:41 Dose: Not Given - Labs Labs: 02/25/17 19:56 02/25/17 19:56 - Respiratory Exam Respiratory Exam: NORMAL BREATHING PATTERN Additional comments: Lungs clear - Cardiovascular Exam Cardiovascular Exam: REGULAR RHYTHM - Extremities Exam Additional comments: B/L BKA Assessment and Plan - Assessment and Plan (Free Text) Assessment: ESRD on HD CAD HTN IDDM,PVD Plan: Stable on dialysis Continue HD per schedule
[2017-02-26] MEDS: EPOETIN ALFA 4,000 UNIT/ML ML Dialysis IV SCH (12:09)
--- NOTE | 2017-02-26 12:52 | CP.PCM.PN ---
Subjective - Date & Time of Evaluation Date of Evaluation: 02/26/17 Time of Evaluation: 12:49 - Subjective Subjective: c/o of abd pain vomited today having dialysis now Objective - Vital Signs/Intake and Output Vital Signs (last 24 hours): Temp Pulse Resp BP Pulse Ox 98.1 F 67 16 100/62 100 02/26/17 10:00 02/26/17 10:00 02/26/17 09:50 02/26/17 11:30 02/26/17 10:00 Intake and Output: 02/26/17 02/26/17 06:59 18:59 Intake Total 420 200 Balance 420 200 - Medications Medications: Current Medications Amlodipine Besylate (Norvasc) 10 mg PO DAILY [facility] Last Admin: 02/26/17 10:40 Dose: Not Given Aspirin (Aspirin Chewable) 81 mg PO DAILY [facility] Last Admin: 02/26/17 10:40 Dose: Not Given Calcitriol (Rocaltrol) 0.25 mcg PO DAILY [facility] Last Admin: 02/26/17 10:40 Dose: Not Given Calcium Carbonate (Oscal) 1,000 mg PO BID [facility] Last Admin: 02/26/17 10:40 Dose: Not Given Carvedilol (Coreg) 25 mg PO BID [facility] Last Admin: 02/26/17 10:40 Dose: Not Given Clopidogrel Bisulfate (Plavix) 75 mg PO DAILY [facility] Last Admin: 02/26/17 10:40 Dose: Not Given Docusate Sodium (Colace) 100 mg PO DAILY PRN PRN Reason: constipation Epoetin Tom (Procrit) 8,000 unit IV TTS [facility] Last Admin: 02/26/17 12:09 Dose: 8,000 unit Gabapentin (Neurontin) 100 mg PO BID [facility] Last Admin: 02/26/17 10:40 Dose: Not Given Heparin Sodium (Porcine) (Heparin) 5,000 units SC Q12 [facility] Last Admin: 02/26/17 10:40 Dose: Not Given Heparin Sodium (Porcine) (Heparin) 4,700 units IVP TTS [facility] Stop: 03/02/17 10:01 Hydralazine HCl (Apresoline) 100 mg PO Q8 [facility] Last Admin: 02/26/17 05:39 Dose: 100 mg Hydromorphone HCl (Dilaudid) 1 mg IVP Q6H PRN PRN Reason: Pain, severe (8-10) Last Admin: 02/26/17 07:21 Dose: 1 mg Ceftriaxone Sodium (Rocephin Iv 1 Gm Duplex) 50 mls @ 50 mls/30 min IVPB DAILY [facility] Last Admin: 02/26/17 10:41 Dose: Not Given Insulin Glargine (Lantus) 20 unit SC [facility] Last Admin: 02/25/17 22:25 Dose: 20 units Insulin Human Regular (Novolin R) 0 unit SC [facility] PRN Reason: Protocol Last Admin: 02/26/17 12:47 Dose: Not Given Isosorbide Mononitrate (Imdur) 60 mg PO DAILY [facility] Last Admin: 02/26/17 10:40 Dose: Not Given Levothyroxine Sodium (Synthroid) 50 mcg PO DAILY@0630 [facility] Last Admin: 02/26/17 05:39 Dose: 50 mcg Multivitamins/Minerals (Therapeutic-M Tab) 1 tab PO DAILY [facility] Last Admin: 02/26/17 10:41 Dose: Not Given Pantoprazole Sodium (Protonix Ec Tab) 40 mg PO DAILY [facility] Last Admin: 02/26/17 10:40 Dose: Not Given Ranolazine (Ranexa) 500 mg PO BID [facility] Last Admin: 02/26/17 10:40 Dose: Not Given Rosuvastatin Calcium (Crestor) 10 mg PO [facility] Last Admin: 02/25/17 22:25 Dose: 10 mg Sertraline HCl (Zoloft) 50 mg PO DAILY [facility] Last Admin: 02/26/17 10:41 Dose: Not Given - Labs Labs: 02/25/17 19:56 02/25/17 19:56 - Constitutional Appears: Non-toxic - Head Exam Head Exam: NORMAL INSPECTION - Eye Exam Eye Exam: Conjunctival injection, Normal appearance Additional comments: legaly blind - ENT Exam ENT Exam: Mucous Membranes Dry - Respiratory Exam Respiratory Exam: Clear to Ausculation Bilateral, NORMAL BREATHING PATTERN - Cardiovascular Exam Cardiovascular Exam: REGULAR RHYTHM - GI/Abdominal Exam GI & Abdominal Exam: Distended, Tenderness - Rectal Exam Rectal Exam: Deferred - Back Exam Back Exam: CVA tenderness (L) - Skin Skin Exam: Pallor Assessment and Plan - Assessment and Plan (Free Text) Assessment: abd pain vomiti ng dmid improving ESRF HTN CAD Plan: CONT CURRENT TREATMENT
[2017-02-26 15:58] VITALS: RESP 20
[2017-02-26] MEDS: (Lantus) Insulin Glargine, Recombinant SC SCH (22:17)
[2017-02-27] MEDS: Levothyroxine 50 MCG TAB PO SCH (05:50)
[2017-02-27] MEDS: (Novolin R) Insulin Human Regular 100 units/ml vial SC SCH ×3 (09:16→17:37)
[2017-02-27] MEDS: Multivitamin With Minerals Tab PO SCH (09:17)
[2017-02-27] MEDS: Pantoprazole 40 mg EC Tab PO SCH (09:17)
[2017-02-27] MEDS: Ranolazine 500 mg Extended Release Tablets PO SCH ×2 (09:17→19:23)
--- NOTE | 2017-02-27 11:36 | CP.PCM.PN ---
Subjective - Date & Time of Evaluation Date of Evaluation: 02/27/17 Time of Evaluation: 11:34 - Subjective Subjective: feels beter today no vomiting Objective - Vital Signs/Intake and Output Vital Signs (last 24 hours): Temp Pulse Resp BP Pulse Ox 98 F 65 20 157/81 H 99 02/27/17 08:02 02/27/17 08:02 02/27/17 08:02 02/27/17 09:21 02/27/17 08:02 Intake and Output: 02/27/17 02/27/17 06:59 18:59 Intake Total 640 Balance 640 - Medications Medications: Current Medications Amlodipine Besylate (Norvasc) 10 mg PO DAILY COUNT [facility]CLUDES [facility] Last Admin: 02/27/17 09:17 Dose: 10 mg Aspirin (Aspirin Chewable) 81 mg PO DAILY COUNT [facility] Last Admin: 02/27/17 09:17 Dose: 81 mg Calcitriol (Rocaltrol) 0.25 mcg PO DAILY [facility] Last Admin: 02/27/17 09:17 Dose: 0.25 mcg Calcium Carbonate (Oscal) 1,000 mg PO BID COUNT [facility]CLUD[facility] Last Admin: 02/27/17 09:17 Dose: 1,000 mg Carvedilol (Coreg) 25 mg PO BID COUNT [facility] Last Admin: 02/27/17 09:21 Dose: 25 mg Clopidogrel Bisulfate (Plavix) 75 mg PO DAILY [facility] Last Admin: 02/27/17 09:17 Dose: 75 mg Docusate Sodium (Colace) 100 mg PO DAILY PRN PRN Reason: constipation Epoetin Tom (Procrit) 8,000 unit IV TTS COUNT [facility] Last Admin: 02/26/17 12:09 Dose: 8,000 unit Gabapentin (Neurontin) 100 mg PO BID COUNT [facility] Last Admin: 02/27/17 09:17 Dose: 100 mg Heparin Sodium (Porcine) (Heparin) 4,700 units IVP TTS COUNT [facility]CLUDES [facility] Stop: 03/02/17 10:01 Last Admin: 02/26/17 13:11 Dose: 4,700 units Hydralazine HCl (Apresoline) 100 mg PO Q8 [facility] Last Admin: 02/27/17 05:47 Dose: 100 mg Hydromorphone HCl (Dilaudid) 1 mg IVP Q6H PRN PRN Reason: Pain, severe (8-10) Last Admin: 02/27/17 09:17 Dose: 1 mg Insulin Glargine (Lantus) 20 unit SC [facility] Last Admin: 02/26/17 22:17 Dose: 20 units Insulin Human Regular (Novolin R) [address] [facility] PRN Reason: Protocol Last Admin: 02/27/17 09:16 Dose: 1 unit Isosorbide Mononitrate (Imdur) 60 mg PO DAILY [facility] Last Admin: 02/27/17 09:17 Dose: 60 mg Levothyroxine Sodium (Synthroid) 50 mcg PO DAILY@0630 [facility] Last Admin: 02/27/17 05:50 Dose: 50 mcg Multivitamins/Minerals (Therapeutic-M Tab) 1 tab PO DAILY COUNT [facility]CLUD[facility] Last Admin: 02/27/17 09:17 Dose: 1 tab Pantoprazole Sodium (Protonix Ec Tab) 40 mg PO DAILY COUNT [facility]CLUD[facility] Last Admin: 02/27/17 09:17 Dose: 40 mg Ranolazine (Ranexa) 500 mg PO BID COUNT [facility]CLUD[facility] Last Admin: 02/27/17 09:17 Dose: 500 mg Rosuvastatin Calcium (Crestor) 10 mg PO [facility] Last Admin: 02/26/17 21:05 Dose: 10 mg Sertraline HCl (Zoloft) 50 mg PO DAILY [facility] Last Admin: 02/27/17 09:17 Dose: 50 mg - Labs Labs: 02/25/17 19:56 02/25/17 19:56 - Constitutional Appears: Non-toxic - Head Exam Head Exam: NORMAL INSPECTION - Eye Exam Eye Exam: Conjunctival injection - ENT Exam ENT Exam: Mucous Membranes Moist - Neck Exam Neck Exam: Full ROM - Respiratory Exam Respiratory Exam: NORMAL BREATHING PATTERN - Cardiovascular Exam Cardiovascular Exam: REGULAR RHYTHM - GI/Abdominal Exam GI & Abdominal Exam: Normal Bowel Sounds - Rectal Exam Rectal Exam: NORMAL INSPECTION - Back Exam Back Exam: NORMAL INSPECTION - Psychiatric Exam Psychiatric exam: Normal Affect - Skin Skin Exam: Pallor Assessment and Plan - Assessment and Plan (Free Text) Assessment: dmid improved htn improved ESRF CAD Plan: D/C HOME WITH [facility]
--- NOTE | 2017-02-27 13:36 | PCM.HF ---
Heart Failure Core Measure - Heart Failure Ejection Fraction: 40 % or Greater (EF 65-70%) RAÚL Inhibitor Prescribed: No Contraindication/Reason for not providing: ESRD Beta-Andrew Prescribed: Carvedilol Angiotensin II Receptor Andrew Prescribed: No Contraindication/Reason for not providing: ESRD AnticoagulationTherapy for Atrial Fibrillation/Atrialflutter: No Contraindication/Reason for not providing: RATE controlled, not a candidate for anti coagulation, risk of bleeding Aldosterone Antagonist Prescribed: No Contraindication/Reason for not providing: EF>40% Hydralazine Nitrate Prescribed: No Contraindication/Reason for not providing: CKD Implantable Cardioverter Defibrillator Therapy: No Contraindication/Reason for not providing: EF>40% Cardiac Resynchronization Therapy Prescribed: No Contraindication/Reason for not providing: EF >40% - Follow up Will be discharged to: Home Follow Up Date (must be within 7 days from discharge): 03/04/17 Follow Up Time: 09:00
--- NOTE | 2017-02-27 15:08 | CP.PCM.PN ---
Subjective - Date & Time of Evaluation Date of Evaluation: 02/27/17 Time of Evaluation: 02:00 - Subjective Subjective: No complaints Objective - Vital Signs/Intake and Output Vital Signs (last 24 hours): Temp Pulse Resp BP Pulse Ox 98 F 65 20 157/81 H 99 02/27/17 08:02 02/27/17 08:02 02/27/17 08:02 02/27/17 09:21 02/27/17 08:02 Intake and Output: 02/27/17 02/27/17 06:59 18:59 Intake Total 640 Balance 640 - Medications Medications: Current Medications Amlodipine Besylate (Norvasc) 10 mg PO DAILY [facility] Last Admin: 02/27/17 09:17 Dose: 10 mg Aspirin (Aspirin Chewable) 81 mg PO DAILY [facility] Last Admin: 02/27/17 09:17 Dose: 81 mg Calcitriol (Rocaltrol) 0.25 mcg PO DAILY [facility] Last Admin: 02/27/17 09:17 Dose: 0.25 mcg Calcium Carbonate (Oscal) 1,000 mg PO BID [facility] Last Admin: 02/27/17 09:17 Dose: 1,000 mg Carvedilol (Coreg) 25 mg PO BID [facility] Last Admin: 02/27/17 09:21 Dose: 25 mg Clopidogrel Bisulfate (Plavix) 75 mg PO DAILY [facility] Last Admin: 02/27/17 09:17 Dose: 75 mg Docusate Sodium (Colace) 100 mg PO DAILY PRN PRN Reason: constipation Epoetin Tom (Procrit) 8,000 unit IV TTS [facility] Last Admin: 02/26/17 12:09 Dose: 8,000 unit Gabapentin (Neurontin) 100 mg PO BID [facility] Last Admin: 02/27/17 09:17 Dose: 100 mg Heparin Sodium (Porcine) (Heparin) 4,700 units IVP TTS [facility] Stop: 03/02/17 10:01 Last Admin: 02/26/17 13:11 Dose: 4,700 units Hydralazine HCl (Apresoline) 100 mg PO Q8 [facility] Last Admin: 02/27/17 14:14 Dose: 100 mg Hydromorphone HCl (Dilaudid) 1 mg IVP Q6H PRN PRN Reason: Pain, severe (8-10) Last Admin: 02/27/17 09:17 Dose: 1 mg Insulin Glargine (Lantus) 20 unit SC [facility] Last Admin: 02/26/17 22:17 Dose: 20 units Insulin Human Regular (Novolin R) 0 unit [facility] PRN Reason: Protocol Last Admin: 02/27/17 12:20 Dose: Not Given Isosorbide Mononitrate (Imdur) 60 mg PO DAILY [facility] Last Admin: 02/27/17 09:17 Dose: 60 mg Levothyroxine Sodium (Synthroid) 50 mcg PO DAILY@0630 [facility] Last Admin: 02/27/17 05:50 Dose: 50 mcg Multivitamins/Minerals (Therapeutic-M Tab) 1 tab PO DAILY [facility] Last Admin: 02/27/17 09:17 Dose: 1 tab Pantoprazole Sodium (Protonix Ec Tab) 40 mg PO DAILY [facility] Last Admin: 02/27/17 09:17 Dose: 40 mg Ranolazine (Ranexa) 500 mg PO BID [facility] Last Admin: 02/27/17 09:17 Dose: 500 mg Rosuvastatin Calcium (Crestor) 10 mg PO [facility] Last Admin: 02/26/17 21:05 Dose: 10 mg Sertraline HCl (Zoloft) 50 mg PO DAILY [facility] Last Admin: 02/27/17 09:17 Dose: 50 mg - Labs Labs: 02/25/17 19:56 02/25/17 19:56 - Respiratory Exam Additional comments: Lungs clear - Cardiovascular Exam Cardiovascular Exam: REGULAR RHYTHM - Extremities Exam Additional comments: No edema Assessment and Plan - Assessment and Plan (Free Text) Assessment: ESRD HTN CAD,IDDM,PVD Plan: Stable on dialysis. Continue HD per schedule
[2017-02-27 15:34] VITALS: PULSE 66; TEMP 97.7; O2SAT 98
--- NOTE | 2017-02-27 18:20 | CP.PCM.PN ---
Subjective - Date & Time of Evaluation Date of Evaluation: 02/27/17 Time of Evaluation: 18:19 - Subjective Subjective: Alert, awake, afebrile, NAD. Objective - Vital Signs/Intake and Output Vital Signs (last 24 hours): Temp Pulse Resp BP Pulse Ox 97.7 F 66 20 127/60 98 02/27/17 15:34 02/27/17 15:34 02/27/17 15:34 02/27/17 15:34 02/27/17 15:34 Intake and Output: 02/27/17 02/27/17 06:59 18:59 Intake Total 640 Balance 640 - Medications Medications: Current Medications Amlodipine Besylate (Norvasc) 10 mg PO DAILY [facility] Last Admin: 02/27/17 09:17 Dose: 10 mg Aspirin (Aspirin Chewable) 81 mg PO DAILY [facility] Last Admin: 02/27/17 09:17 Dose: 81 mg Calcitriol (Rocaltrol) 0.25 mcg PO DAILY [facility] Last Admin: 02/27/17 09:17 Dose: 0.25 mcg Calcium Carbonate (Oscal) 1,000 mg PO BID [facility] Last Admin: 02/27/17 09:17 Dose: 1,000 mg Carvedilol (Coreg) 25 mg PO BID [facility] Last Admin: 02/27/17 09:21 Dose: 25 mg Clopidogrel Bisulfate (Plavix) 75 mg PO DAILY [facility] Last Admin: 02/27/17 09:17 Dose: 75 mg Docusate Sodium (Colace) 100 mg PO DAILY PRN PRN Reason: constipation Epoetin Tom (Procrit) 8,000 unit IV TTS [facility] Last Admin: 02/26/17 12:09 Dose: 8,000 unit Gabapentin (Neurontin) 100 mg PO BID [facility] Last Admin: 02/27/17 09:17 Dose: 100 mg Heparin Sodium (Porcine) (Heparin) 4,700 units IVP TTS [facility] Stop: 03/02/17 10:01 Last Admin: 02/26/17 13:11 Dose: 4,700 units Hydralazine HCl (Apresoline) 100 mg PO Q8 [facility] Last Admin: 02/27/17 14:14 Dose: 100 mg Hydromorphone HCl (Dilaudid) 1 mg IVP Q6H PRN PRN Reason: Pain, severe (8-10) Last Admin: 02/27/17 15:48 Dose: 1 mg Insulin Glargine (Lantus) 20 unit SC [facility] Last Admin: 02/26/17 22:17 Dose: 20 units Insulin Human Regular (Novolin R) 0 unit SC [facility] PRN Reason: Protocol Last Admin: 02/27/17 17:37 Dose: Not Given Isosorbide Mononitrate (Imdur) 60 mg PO DAILY [facility] Last Admin: 02/27/17 09:17 Dose: 60 mg Levothyroxine Sodium (Synthroid) 50 mcg PO DAILY@0630 [facility] Last Admin: 02/27/17 05:50 Dose: 50 mcg Multivitamins/Minerals (Therapeutic-M Tab) 1 tab PO DAILY [facility] Last Admin: 02/27/17 09:17 Dose: 1 tab Pantoprazole Sodium (Protonix Ec Tab) 40 mg PO DAILY [facility] Last Admin: 02/27/17 09:17 Dose: 40 mg Ranolazine (Ranexa) 500 mg PO BID [facility] Last Admin: 02/27/17 09:17 Dose: 500 mg Rosuvastatin Calcium (Crestor) 10 mg PO [facility] Last Admin: 02/26/17 21:05 Dose: 10 mg Sertraline HCl (Zoloft) 50 mg PO DAILY [facility] Last Admin: 02/27/17 09:17 Dose: 50 mg - Labs Labs: 02/25/17 19:56 02/25/17 19:56 Assessment and Plan - Assessment and Plan (Free Text) Assessment: Patient seen and examined. No sob or chest pains. PICC line removed. d/w DR Li, plan to discharge home today. To continue with HD as scheduled. No acute distress.
[2017-02-27 19:26] VITALS: BP 129/66
--- NOTE | 2017-03-19 14:10 | DS ---
CHIEF COMPLAINT: He presented to the emergency room with chest pain. HISTORY OF PRESENT ILLNESS: He is a 36-year-old male who is diabetic, short of breath, status post CABG and he was in dialysis. He is status post bilateral amputation. He was not febrile. His pulse was regular. His respirations were okay. His blood pressure was 197/58 in the emergency room. His pulse oximetry is 100. His EKG did not show any changes and he was admitted to telemetry. He was followed up by Dr. Michaels who will see him in consultation and he was followed up by me. He was also having on and off short of breath and he had a catheter for dialysis, which was painful and swollen at the right side of the neck. He was almost crying of pain. He was put on his medication; amlodipine, aspirin, calcium, Coreg, Dulcolax for constipation, Neurontin, heparin, hydralazine, morphine, Dilaudid every 6 hours, antibiotics and the insulin coverage and multiple vitamins and pantoprazole. His white count was initially high and his hemoglobin 8.7/27. His sugar is 204. His kidney function is 36/4.6. He was also seen by Dr. Harry Wu for the endocrine for the diabetes, which he was monitored and covered for the insulin. He was seen by Dr. Galindo for nephrology consultation. He was complaining of abdominal pain and vomiting after having dialysis and his lipase was ordered. His white count improved, but is still little high. His abdomen was tender and his chest was clear. He was on continuous pain medications. His CRP was 20.7. CMP was negative. Troponin was little positive, but he did not have any acute TN. His vitamin D was low. Thyroid was checked and was okay. Parathyroid hormone was high. His prolactin was normal. CA-19 is 20.8. CEA was 1.6. Split was normal. His potassium was 3.7, improved. JOEL was stable. PHYSICAL EXAMINATION: GENERAL: Alert, oriented, and comfortable and he was not having any short of breath anymore and the PICC line removed. The patient was to be discharged to home to continue all his medications and that was as done on ------. He went home with home health care and that was on 02/27/2017. FINAL DIAGNOSES: Acute chest pain, history of coronary artery disease, end-stage renal failure, hypertension, diabetes, abdominal pain, chronic obstructive pulmonary disease, status post bilateral amputation, and status post coronary artery bypass graft. Sybil Li MD
--- NOTE | 2017-03-20 10:53 | DS ---
HOSPITAL COURSE: The patient was admitted on 02/20/2017 to the emergency room. He came into the emergency room feeling weak and dizzy, altered mental status and chest pain and he was initially seen by ICU consultation but he was admitted to the floor. His sugar was 846 and his white count was 12. The patient was monitored for his sugar and covered by the insulin and he has history of coronary artery disease and congestive heart failure, bilateral amputation and his blood pressure was really high when he came in. He was started on his medications and his blood pressure at the beginning was more than 170/76. His white count was high at 17 and he was seen by Dr. Harry Wu for his sugar. Dr. Galindo also seen him for the dialysis and he had blood cultures done for there was some abscess in his chest wall and it was coagulase negative staphylococcus. He was seen by Dr. Gonzalez for cardiology consultation and he was seen by Dr. Leong for his arthritis to rule out septic arthritis and he was seen by DrJulisa to rule out any problem with his dialysis catheter. He was progressively getting better, no vomiting, tolerating diet, blood sugar improving and his blood pressure was under control. His EKG, there was no new changes. His white count was coming down. His hemoglobin was 9.5 and he wants to be discharged home to continue all his medications from by my office. FINAL DIAGNOSES: Acute chest pain, congestive heart failure, coronary artery disease, uncontrolled diabetes insulin dependent, hypertension, end-stage renal failure, and anemia. Sybil Li MD
--- NOTE | 2017-03-21 10:52 | DS ---
SUBJECTIVE: He came into the emergency room with chest pain and he was having blood sugar of 846 and he did have nonspecific ST abnormalities. He is a 36-year-old male who was diabetic since and end-stage renal failure, on dialysis and status post coronary artery bypass graft and he did have some feeling of dizziness, light headedness, and his vital signs at that time; his blood pressure was 197/58, he was afebrile, his pulse was 78. His blood work was white count of 12, 9 of hemoglobin, and the blood sugar went up to 1036, his BUN is 78, creatinine 8.6. Patient was evaluated for ICU, but he was admitted to the floor. He was seen by Dr. 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 He was seen by Dr. Michaels for his chest pain and there was no new changes. He was covered with his medications. He was seen also by Dr. Mckinnon at bedside. He was complaining of pain at the site of the catheter. Dr. Mckinnon did put an I and D. He has an I and D done for him for chest abscess and he was following him for changing the dressing ------. He was covered with antibiotics as well. He was having abdominal pain and vomiting on and off. His white count came down to 13. His sugar came down to 152 and he was improving with dialysis. On 02/27/2017, the patient was stable, more comfortable and he was seen by the nurse practitioner and he was discharged to continue all his medications. His last lab was 13 white count, sugar was 152 and his examination was unremarkable for any new issues or discomfort. FINAL DIAGNOSES: Acute chest pain; uncontrolled diabetes mellitus, insulin dependent, end-stage renal failure; anemia; abdominal pain; gastritis; chronic obstructive pulmonary disease status post coronary bypass, status post amputation; hypertension uncontrolled, and we will followup in the office. Sybil Li MD
== END 2017-02-27 20:05 | disposition home or self-care (01) | DRG 544 ==
LOC: C.ER 20:34 → C.6T 23:45 → C.5T 02-21 14:40
PROVIDERS: ADMIT Internal Medicine; ATTEND Internal Medicine
PROC: 5A1D60Z (ICD-10-PCS; principal; 2017-02-21)
PROC: 02HV33Z Insertion of Infusion Device into Superior Vena Cava, Percutaneous Approach (ICD-10-PCS; 2017-02-21)
PROC: B548ZZA Ultrasonography of Superior Vena Cava, Guidance (ICD-10-PCS; 2017-02-21)
DX: I13.2 Hypertensive heart and chronic kidney disease with heart failure and with stage 5 chronic kidney disease, or end stage renal disease (principal); E11.00 Type 2 diabetes mellitus with hyperosmolarity without nonketotic hyperglycemic-hyperosmolar coma (NKHHC); N18.6 End stage renal disease; E11.22 Type 2 diabetes mellitus with diabetic chronic kidney disease; I50.33 Acute on chronic diastolic (congestive) heart failure; E11.649 Type 2 diabetes mellitus with hypoglycemia without coma; L02.213 Cutaneous abscess of chest wall; J44.9 Chronic obstructive pulmonary disease, unspecified; R09.02 Hypoxemia; E11.319 Type 2 diabetes mellitus with unspecified diabetic retinopathy without macular edema; E11.51 Type 2 diabetes mellitus with diabetic peripheral angiopathy without gangrene; I48.91 Unspecified atrial fibrillation; Z99.2 Dependence on renal dialysis; I25.10 Atherosclerotic heart disease of native coronary artery without angina pectoris; E03.9 Hypothyroidism, unspecified; M19.90 Unspecified osteoarthritis, unspecified site; E78.00 Pure hypercholesterolemia, unspecified; E78.5 Hyperlipidemia, unspecified; D63.1 Anemia in chronic kidney disease; F02.80 Dementia in other diseases classified elsewhere, unspecified severity, without behavioral disturbance, psychotic disturbance, mood disturbance, and anxiety; G30.9 Alzheimer's disease, unspecified; Z87.11 Personal history of peptic ulcer disease; Z86.73 Personal history of transient ischemic attack (TIA), and cerebral infarction without residual deficits; Z89.511 Acquired absence of right leg below knee; Z79.4 Long term (current) use of insulin; Z95.1 Presence of aortocoronary bypass graft; Z95.5 Presence of coronary angioplasty implant and graft

== ENCOUNTER 2017-03-03 18:36 | Inpatient (IN) | payer OTHER ==
[2017-03-03 18:37] VITALS: PULSE 66; BMI 20.7
--- NOTE | 2017-03-03 20:13 | C.PDOC ---
History Of Present Illness Patient is a 36 y/o male, whose PMHx includes ESRD, CAD, CHF, COPD, Afib, asthma , and OK in the past, that is brought to the ED by EMS for evaluation of sudden onset of chest pain after waking up from a nap today. Patient was given Aspirin , and Nitro in route. Upon arrival patient was tachycardic, but states he feels better now, and his heart rate has also improved. However, pt still complains of some chest pain. Pt is well known to ED, and was recently admitted for hyperglycemia. Pt reports being seen on 02/20/17 with similar symptoms of chest pain, and shortness of breath. Otherwise, denies any headache, dizziness, weakness, numbness, lightheadedness, shortness of breath, cough, or any other associated symptoms at this time. Time Seen by Provider: 03/03/17 18:41 Chief Complaint (Nursing): Chest Pain History Per: Patient History/Exam Limitations: no limitations Onset/Duration Of Symptoms: Sudden Onset Current Symptoms Are (Timing): Still Present Quality: "Pain" Associated Symptoms: denies: Nausea, Dyspnea, Diaphoresis, Syncope Modifying Factors: None Exacerbating Factors: None Alleviating Factors: None Recent travel outside of the [place]: No Additional History Per: Patient Past Medical History Reviewed: Historical Data, Nursing Documentation, Vital Signs Vital Signs: Last Vital Signs Temp 98.3 F 03/03/17 18:43 Pulse 110 H 03/03/17 19:18 Resp 18 03/03/17 19:18 BP 178/61 H 03/03/17 20:19 Pulse Ox 100 03/03/17 20:58 - Medical History PMH: Alzheimer's Disease, Anemia, Anxiety, Arthritis, Asthma, Atrial Fibrillation, Bronchitis, CAD, Cardia Arrhythmia, CHF, COPD, CVA, Depression, Diabetes, Deep Vein Thrombosis, Gastrointestinal Ulcer, Gall Bladder Disease, HTN, Hypercholesterolemia, Hypothyroidism, Pneumonia, End Stage Renal Disease, Chronic Kidney Disease, Seizures Denies: Hyperthyroidism, Sexually Transmitted Disease Surgical History: CABG (12/2009), Cholecystectomy (2011), Coronary Stent - [facility] Procedures ABDOMINAL WALL SINOGRAM (12/31/13) C.A.T. SCAN OF ABDOMEN (10/31/13) CENTRAL VENOUS CATHETER PLACEMENT WITH GUIDANCE (02/10/15) DILATE R ANT TIB ART W DRUG-ELUT INTRALUM, PERC (08/12/15) DILATION OF LEFT FEMORAL ARTERY, PERCUTANEOUS APPROACH (07/04/16) DILATION OF RIGHT FEMORAL ARTERY, PERCUTANEOUS APPROACH (08/12/15) DILATION OF RIGHT POPLITEAL ARTERY, PERCUTANEOUS APPROACH (08/12/15) DX ULTRASOUND-HEART (01/05/13) ENTERAL INFUSION OF CONCENTRATED NUT. SUBSTANCES (06/28/13) EXCIS DEBRIDE OF WOUND, INFECT, OR BURN (08/03/14) EXTIRPATION OF MATTER FROM L FEM ART, PERC APPROACH (07/04/16) EXTIRPATION OF MATTER FROM R FEM ART, PERC APPROACH (08/12/15) EXTIRPATION OF MATTER FROM R POPL ART, PERC APPROACH (08/12/15) FLUOROSCOPY OF L LOW EXTREM ART USING L OSM CONTRAST (08/12/15) FLUOROSCOPY OF R LOW EXTREM ART USING L OSM CONTRAST (08/12/15) FREE SKIN GRAFT NEC (08/03/14) HEAD SOFT TISS X-RAY NEC (04/15/13) HEMODIALYSIS (04/28/15) INCIS W REM OF FORIEGN BODY OR DEV FROM SKIN & SUBCUT TISSUE (08/08/13) INSERTION OF INFUSION DEV INTO R SUBCLAV VEIN, PERC APPROACH (01/19/16) INSERTION OF INFUSION DEV INTO SUP VENA CAVA, PERC APPROACH (02/20/17) INTRODUCE OF OTH THROMBOLYTIC INTO PERIPH ART, PERC APPROACH (08/12/15) LAPAROSCOPIC CHOLECYSTECTOMY (09/21/13) LOC EXC LES METATAR/TAR (06/01/14) PACKED CELL TRANSFUSION (06/01/14) PERCUTAN LIVER ASPIRAT (12/31/13) PERFORMANCE OF URINARY FILTRATION, MULTIPLE (02/20/17) PERFORMANCE OF URINARY FILTRATION, SINGLE (12/18/16) SKIN & SUBQ INCISION NEC (10/24/14) TETANUS TOXOID ADMINIST (06/13/14) ULTRASONOGRAPHY OF SUPERIOR VENA CAVA, GUIDANCE (02/20/17) VENOUS CATHETERIZATION FOR RENAL DIALYSIS (08/08/13) VENOUS CATHETERIZATION NEC (04/30/13) Family History: States: Unknown Family Hx - Social History Hx Tobacco Use: No Hx Alcohol Use: No Hx Substance Use: No - Immunization History Hx Tetanus Toxoid Vaccination: Yes Hx Influenza Vaccination: No Hx Pneumococcal Vaccination: Yes Review Of Systems Except As Marked, All Systems Reviewed And Found Negative. Constitutional: Negative for: Fever, Chills Cardiovascular: Positive for: Chest Pain. Negative for: Palpitations, Edema, Light Headedness Respiratory: Negative for: Cough, Shortness of Breath, Hemoptysis, Sputum Gastrointestinal: Negative for: Nausea, Vomiting, Abdominal Pain Neurological: Negative for: Weakness, Numbness, Headache, Dizziness Physical Exam - Physical Exam Appears: Non-toxic, Chronically Ill Skin: Normal Color, Warm, Dry Head: Atraumatic, Normacephalic Eye(s): bilateral: Other (blind at baseline) Neck: Normal ROM, Supple Chest: Symmetrical, No Tenderness Cardiovascular: Rhythm Regular, No Murmur Respiratory: Normal Breath Sounds, No Rales, No Rhonchi, No Wheezing Gastrointestinal/Abdominal: Soft, No Tenderness Extremity: Other (bilateral BKA) Neurological/Psych: Oriented x3, Normal Speech, Normal Cognition ED Course And Treatment - Laboratory Results Result Diagrams: 03/03/17 20:15 03/03/17 20:15 Lab Interpretation: No Changes Compared To Prior Results ECG: Interpreted By Me O2 Sat by Pulse Oximetry: 100 (on RA) Pulse Ox Interpretation: Normal Progress Note: Labs, EKG ordered and reviewed. Patient was given Dilaudid in the ER. Reevaluation Time: 21:00 Reassessment Condition: Improved (Patient is comfortable in ED but monitor now showing Atrial flutter. Repeat EKG done) - Physician Consult Information Time Consulting Physician Contacted: 21:04 Physician Contacted: Sybil Li Outcome Of Conversation: Patient to be admitted for new atrial fib/flutter. Disposition - Disposition Disposition: HOSPITALIZED Disposition Time: 21:07 Condition: FAIR - POA Present On Arrival: None - Clinical Impression Clinical Impression: ESRD (end stage renal disease) on dialysis, CAD (coronary artery disease), Chest pain, New onset atrial flutter - Scribe Statement The provider has reviewed the documentation as recorded by the Fabiola Tavera All medical record entries made by the Marlonibrigoberto were at my direction and personally dictated by me. I have reviewed the chart and agree that the record accurately reflects my personal performance of the history, physical exam, medical decision making, and the department course for this patient. I have also personally directed, reviewed, and agree with the discharge instructions and disposition.
[2017-03-03 20:26] LABS: BASO # 0.1 K/uL (0.0-0.2); BASO % 0.7 % (0.0-2.0); EOS # 0.3 K/uL (0.0-0.7); EOS % 1.9 % (0.0-4.0); HEMOGLOBIN 10.9 g/dL (12.0-18.0); LYMPH # 2.3 K/uL (1.0-4.3); LYMPH % 14.4 % (20.0-40.0); MEAN CELL VOLUME 87.2 fL (80.0-94.0); MEAN CORPUSCULAR HEMOGLOBIN 26.7 pg (27.0-31.0); MEAN CORPUSCULAR HGB CONC 30.6 g/dL (33.0-37.0); MEAN PLATELET VOLUME 8.8 fL (7.2-11.7); MONO # 1.1 K/uL (0.0-0.8); MONO % 6.5 % (0.0-10.0); NEUT # 12.3 K/uL (1.8-7.0); NEUT % 76.5 % (50.0-75.0); RBC 4.1 Mil/uL (4.40-5.90); RED CELL DISTRIBUTION WIDTH 18.5 % (11.5-14.5)
[2017-03-03 20:28] LABS: ALBUMIN 3.6 g/dL (3.5-5.0)
[2017-03-03 20:31] LABS: ALB/GLOB RATIO 0.9 (1.0-2.1); ALT/SGPT 15 U/L (21-72); AST/SGOT 49 U/L (17-59); BLOOD UREA NITROGEN 32 mg/dL (9-20); GFR AFRICAN-AMERICAN 20; GFR NON-AFRICAN AMERICAN 17
[2017-03-04] MEDS: Enoxaparin 40 mg Syringe SC SCH ×2 (02:41→09:31)
[2017-03-04] MEDS: HYDROmorphone 1 mg/ml ISec IVP PRN ×4 (02:45→22:53)
[2017-03-04 08:09] LABS: CK-MB 1.94 ng/mL (0.0-3.38)
[2017-03-04] MEDS: (Novolin R) Insulin Human Regular 100 units/ml vial SC SCH ×3 (08:38→21:57)
--- NOTE | 2017-03-04 11:23 | CP.PCM.CON ---
History of Present Illness - History of Present Illness History of Present Illness: 36 year old patient is brought to the ED by ambulance for evaluation of sudden onset of chest pain after waking up from a nap today. Patient was given Aspirin , and Nitro in route. Upon arrival patient was tachycardic, but states he feels better now, and his heart rate has also improved. However, pt still complains of some chest pain. Pt is well known to ED, and was recently admitted for hyperglycemia. Pt reports being seen on 02/20/17 with similar symptoms of chest pain, and shortness of breath. Otherwise, denies any headache, dizziness, weakness, numbness, lightheadedness, shortness of breath, cough, or any other associated symptoms at this time. pmhx is extensive for 1. CAD s/p CABG with subsequent closure of vein grafts and then had RCA stent. Non-revascularizable coronaries. 2. HTN uncontrolled: labile 3. DM uncontrolled (non compliant with diet) 4. PAD s/p L. BKA abd R. ray amputation and chronic R. heel ulcer; hx of R.SFA/ popliteal angioplasty and AT stent with eventual R. BKA. 5. kleinfelters 6. ASX moderate pulmonary stenosis 7. hx of chronic pain, hx of liver abscess and infections 8. legally blind 9. Pain medication dependence 10. Hx of non-compliance with missed HD in the past SOCHX: No Tobacco, ETOH or DRUBG abuse PSHX: as above ROS: legally blind, B/K BKA Review of Systems - Review of Systems All systems: reviewed and no additional remarkable complaints except Past Patient History - Infectious Disease Hx of Infectious Diseases: None - Tetanus Immunizations Tetanus Immunization: >10 years Ago - Past Medical History & Family History Past Medical History?: Yes - Past Social History Smoking Status: Never Smoked - CARDIAC Hx Atrial Fibrillation: Yes Hx Cardia Arrhythmia: Yes Hx Congestive Heart Failure: Yes Hx Hypercholesterolemia: Yes Hx Hypertension: Yes - PULMONARY Hx Asthma: Yes Hx Bronchitis: Yes Hx Chronic Obstructive Pulmonary Disease (COPD): Yes Hx Pneumonia: Yes - NEUROLOGICAL Hx Alzheimer's Disease: Yes Hx Seizures: Yes - HEENT Hx HEENT Problems: Yes Hx Blind: Yes (legally blind) Hx Cataracts: Yes - RENAL Hx Chronic Kidney Disease: Yes - ENDOCRINE/METABOLIC Hx Hyperthyroidism: No Hx Hypothyroidism: Yes - HEMATOLOGICAL/ONCOLOGICAL Hx Anemia: Yes - INTEGUMENTARY Hx Dermatological Problems: No - MUSCULOSKELETAL/RHEUMATOLOGICAL Hx Falls: Yes - GASTROINTESTINAL Hx Gall Bladder Disease: Yes - GENITOURINARY/GYNECOLOGICAL Hx Sexually Transmitted Disorders: No - PSYCHIATRIC Hx Substance Use: No - SURGICAL HISTORY Hx Amputation: Yes Hx Cholecystectomy: Yes (2011) 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/2009) Hx Coronary Stent: Yes - ANESTHESIA Hx Anesthesia: Yes Hx Anesthesia Reactions: No Hx Malignant Hyperthermia: No Meds Allergies/Adverse Reactions: Allergies Allergy/AdvReac Type Severity Reaction Status Date / Time acetaminophen [From Percocet] Allergy RASH Verified 02/03/17 13:47 atenolol Allergy RASH Verified 02/03/17 13:47 digoxin Allergy RASH Verified 02/03/17 13:47 milk Allergy ITCHING Verified 02/03/17 13:47 morphine Allergy ITCHING Verified 02/03/17 13:47 oxycodone HCl [From Percocet] Allergy RASH Verified 02/03/17 13:47 - Medications Medications: Current Medications Albuterol/Ipratropium (Duoneb 3 Mg/0.5 Mg (3 Ml) Ud) 3 ml INH RQID [facility] Amlodipine Besylate (Norvasc) 10 mg PO DAILY [facility] Last Admin: 03/04/17 09:31 Dose: 10 mg Aspirin (Ecotrin) 81 mg PO DAILY [facility] Last Admin: 03/04/17 09:31 Dose: 81 mg Carvedilol (Coreg) 25 mg PO BID [facility] Last Admin: 03/04/17 09:34 Dose: 25 mg Enoxaparin Sodium (Lovenox) 40 mg SC DAILY [facility] Last Admin: 03/04/17 09:31 Dose: 40 mg Hydralazine HCl (Apresoline) 50 mg PO Q8H [facility] Last Admin: 03/04/17 05:53 Dose: 50 mg Hydromorphone HCl (Dilaudid) 1 mg IVP Q6H PRN PRN Reason: Pain, moderate (4-7) Last Admin: 03/04/17 09:28 Dose: 1 mg Insulin Glargine (Lantus) 10 unit SC HS [facility] Insulin Human Regular (Novolin R) 0 unit SC [facility] PRN Reason: Protocol Last Admin: 03/04/17 08:38 Dose: 6 unit Isosorbide Mononitrate (Imdur) 60 mg PO DAILY [facility] Last Admin: 03/04/17 09:31 Dose: 60 mg Physical Exam - Constitutional Appears: Chronically Ill - Head Exam Head Exam: ATRAUMATIC, NORMAL INSPECTION, NORMOCEPHALIC - Eye Exam Eye Exam: absent: Normal appearance - ENT Exam ENT Exam: Mucous Membranes Moist, Normal Oropharynx - Neck Exam Neck exam: Positive for: Normal Inspection. Negative for: Tenderness - Respiratory Exam Respiratory Exam: Clear to Auscultation Bilateral, NORMAL BREATHING PATTERN. absent: Rales, Rhonchi, Wheezes - Cardiovascular Exam Cardiovascular Exam: REGULAR RHYTHM, +S1, +S2, Systolic Murmur. absent: Gallop - GI/Abdominal Exam GI & Abdominal Exam: Normal Bowel Sounds, Soft. absent: Tenderness - Extremities Exam Extremities exam: Negative for: normal inspection (B/L BKA) - Neurological Exam Neurological exam: Alert, Oriented x3 - Psychiatric Exam Psychiatric exam: Normal Affect, Normal Mood - Skin Skin Exam: Normal Color, Warm Results - Vital Signs Recent Vital Signs: Last Vital Signs Temp 97.7 F 03/04/17 07:40 Pulse 67 03/04/17 07:40 Resp 18 03/04/17 07:40 BP 201/75 H 03/04/17 09:34 Pulse Ox 100 03/04/17 07:40 - Labs Result Diagrams: 03/03/17 20:15 03/03/17 20:15 Labs: Laboratory Results - last 24 hr 03/04/17 03/04/17 06:37 07:45 POC Glucose (mg/dL) 304 H Total Creatine Kinase < 20 L CK-MB (Mass) 1.94 Troponin I, Quant 0.2280 H* - EKG Data EKG Interpreted by: Myself (Carmelina, LVH with strain) Assessment & Plan - Assessment and Plan (Free Text) Assessment: CAD: hx of CABG and subsequent stent; patient CAD status is stable and should be medically treated wth Coreg,IMDUR/Statin. He has had normal LV function with chronic diastolic dysfunction. EKG: read by me: Carmelina 2:[address] chages, LVH and LAE * LDL goal 50-70 * Diabetic control * ASA, Coreg, Imdur, ranexa * No active cardiac sx's; cont medical therapy. * Cont volume removal with HD HTN: labile Continue medical treatment as prescribed BP is better on max doses of coreg, hydralazine, Norvasc, clonidine: add minoxidil 2.5 daily in addition if needed. AFLUTTER: New onset: Mild inc troponin is likely secondary to same and fast rate : now better controlled. Patient will need rate control and anticoagulation with coumadin for INR goal 2-3 if no contraindications from GI standpoint. Triple therapy would increase risk of bleeding therefore I suggest ASA and Coumadin or Plavix and coumadin as choice of therapy. Consult EP for consideration of AFLUTTER ablation. DM: labile: Cont medical rx continued education and counseling management per primary team PAD: S/P B/L BKA ASX No signs of ulcer or wound dehiscence ESRD: Stable chem cont maintainence HD, Monitor lytes
--- NOTE | 2017-03-04 11:35 | CP.PCM.CON ---
History of Present Illness - History of Present Illness History of Present Illness: 36 y/o male with ESRd on maintenance HD, TTS, CAD, CABG( closure of grafts & nonvascularisable vessels ,Rt RCA stent) ,IDDM with complications,PVD seizures was admitted yesterday for sudden onset of chrst pain Had dialysis treatment on Sat. Pt denies SOB Past Patient History - Infectious Disease Hx of Infectious Diseases: None - Tetanus Immunizations Tetanus Immunization: >10 years Ago - Past Medical History & Family History Past Medical History?: Yes - Past Social History Smoking Status: Never Smoked - CARDIAC Hx Atrial Fibrillation: Yes Hx Cardia Arrhythmia: Yes Hx Congestive Heart Failure: Yes Hx Hypercholesterolemia: Yes Hx Hypertension: Yes - PULMONARY Hx Asthma: Yes Hx Bronchitis: Yes Hx Chronic Obstructive Pulmonary Disease (COPD): Yes Hx Pneumonia: Yes - NEUROLOGICAL Hx Alzheimer's Disease: Yes Hx Seizures: Yes - HEENT Hx HEENT Problems: Yes Hx Blind: Yes (legally blind) Hx Cataracts: Yes - RENAL Hx Chronic Kidney Disease: Yes - ENDOCRINE/METABOLIC Hx Hyperthyroidism: No Hx Hypothyroidism: Yes - HEMATOLOGICAL/ONCOLOGICAL Hx Anemia: Yes - INTEGUMENTARY Hx Dermatological Problems: No - MUSCULOSKELETAL/RHEUMATOLOGICAL Hx Falls: Yes - GASTROINTESTINAL Hx Gall Bladder Disease: Yes - GENITOURINARY/GYNECOLOGICAL Hx Sexually Transmitted Disorders: No - PSYCHIATRIC Hx Substance Use: No - SURGICAL HISTORY Hx Amputation: Yes Hx Cholecystectomy: Yes (2011) 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/2009) Hx Coronary Stent: Yes - ANESTHESIA Hx Anesthesia: Yes Hx Anesthesia Reactions: No Hx Malignant Hyperthermia: No Meds Allergies/Adverse Reactions: Allergies Allergy/AdvReac Type Severity Reaction Status Date / Time acetaminophen [From Percocet] Allergy RASH Verified 02/03/17 13:47 atenolol Allergy RASH Verified 02/03/17 13:47 digoxin Allergy RASH Verified 02/03/17 13:47 milk Allergy ITCHING Verified 02/03/17 13:47 morphine Allergy ITCHING Verified 02/03/17 13:47 oxycodone HCl [From Percocet] Allergy RASH Verified 02/03/17 13:47 - Medications Medications: Current Medications Albuterol/Ipratropium (Duoneb 3 Mg/0.5 Mg (3 Ml) Ud) 3 ml INH RQID [facility] Amlodipine Besylate (Norvasc) 10 mg PO DAILY [facility] Last Admin: 03/04/17 09:31 Dose: 10 mg Aspirin (Ecotrin) 81 mg PO DAILY [facility] Last Admin: 03/04/17 09:31 Dose: 81 mg Carvedilol (Coreg) 25 mg PO BID [facility] Last Admin: 03/04/17 09:34 Dose: 25 mg Enoxaparin Sodium (Lovenox) 40 mg SC DAILY [facility] Last Admin: 03/04/17 09:31 Dose: 40 mg Hydralazine HCl (Apresoline) 50 mg PO Q8H [facility] Last Admin: 03/04/17 05:53 Dose: 50 mg Hydromorphone HCl (Dilaudid) 1 mg IVP Q6H PRN PRN Reason: Pain, moderate (4-7) Last Admin: 03/04/17 09:28 Dose: 1 mg Insulin Glargine (Lantus) 10 unit SC [facility] Insulin Human Regular (Novolin R) 0 unit SC ACHS [facility] PRN Reason: Protocol Last Admin: 03/04/17 08:38 Dose: 6 unit Isosorbide Mononitrate (Imdur) 60 mg PO DAILY [facility] Last Admin: 03/04/17 09:31 Dose: 60 mg Physical Exam - Constitutional Appears: No Acute Distress - Head Exam Head Exam: ATRAUMATIC, NORMOCEPHALIC - Eye Exam Additional comments: Blindness - ENT Exam ENT Exam: Mucous Membranes Moist - Neck Exam Additional comments: Neck supple - Respiratory Exam Additional comments: Lungs clear - Cardiovascular Exam Cardiovascular Exam: REGULAR RHYTHM - GI/Abdominal Exam GI & Abdominal Exam: Soft Additional comments: No tenderness - Extremities Exam Additional comments: B/L BKA Results - Vital Signs Recent Vital Signs: Last Vital Signs Temp 97.7 F 03/04/17 07:40 Pulse 67 03/04/17 07:40 Resp 18 03/04/17 07:40 BP 201/75 H 03/04/17 09:34 Pulse Ox 100 03/04/17 07:40 - Labs Result Diagrams: 03/03/17 20:15 03/03/17 20:15 Labs: Laboratory Results - last 24 hr 03/04/17 03/04/17 06:37 07:45 POC Glucose (mg/dL) 304 H Total Creatine Kinase < 20 L CK-MB (Mass) 1.94 Troponin I, Quant 0.2280 H* Assessment & Plan - Assessment and Plan (Free Text) Assessment: ESRD Chest pain, Hx/o CAD failed coronary grafts,RCA stent IDDM HTN Plan: Continue HD per schedule Monitor BP Cardiology note reviewed Renal diet
[2017-03-04] MEDS: Albuterol-Ipratrop 3 mg / 0.5 (3 ml) UD INH SCH ×2 (16:00→20:09)
[2017-03-04] MEDS: Heparin25000 units/250ml 1/2NS 25,000 UNITS/250 ML BAG IV PRN (17:16)
--- NOTE | 2017-03-04 17:40 | CP.PCM.HP ---
History of Present Illness - History of Present Illness History of Present Illness: pt came for chest pain tightness of the chest sob and arrythmia Present on Admission - Present on Admission Any Indicators Present on Admission: Yes Review of Systems - Review of Systems Systems not reviewed;Unavailable: Acuity of Condition, Unstable Vital Signs - Constitutional Constitutional: Anorexia, Weakness - EENT Eyes: Loss of Vision Ears: As Per HPI Nose/Mouth/Throat: As Per HPI - Cardiovascular Cardiovascular: Chest Pain at Rest, Dyspnea, Irregular Heart Rhythm - Respiratory Respiratory: Dyspnea, Dyspnea on Exertion, Wheezing - Gastrointestinal Gastrointestinal: As Per HPI - Genitourinary Genitourinary: As Per HPI - Musculoskeletal Additional comments: s/p biltalAKA - Integumentary Integumentary: As Per HPI - Neurological Neurological: Numbness - Psychiatric Psychiatric: Depression - Endocrine Additional Comments: DMID - Hematologic/Lymphatic Additional comments: ANEAMIA Past Patient History - Infectious Disease Hx of Infectious Diseases: None - Tetanus Immunizations Tetanus Immunization: >10 years Ago - Past Medical History & Family History Past Medical History?: Yes - Past Social History Smoking Status: Never Smoked - CARDIAC Hx Atrial Fibrillation: Yes Hx Cardia Arrhythmia: Yes Hx Congestive Heart Failure: Yes Hx Hypercholesterolemia: Yes Hx Hypertension: Yes - PULMONARY Hx Asthma: Yes Hx Bronchitis: Yes Hx Chronic Obstructive Pulmonary Disease (COPD): Yes Hx Pneumonia: Yes - NEUROLOGICAL Hx Alzheimer's Disease: Yes Hx Seizures: Yes - HEENT Hx HEENT Problems: Yes Hx Blind: Yes (legally blind) Hx Cataracts: Yes - RENAL Hx Chronic Kidney Disease: Yes - ENDOCRINE/METABOLIC Hx Hyperthyroidism: No Hx Hypothyroidism: Yes - HEMATOLOGICAL/ONCOLOGICAL Hx Anemia: Yes - INTEGUMENTARY Hx Dermatological Problems: No - MUSCULOSKELETAL/RHEUMATOLOGICAL Hx Falls: Yes - GASTROINTESTINAL Hx Gall Bladder Disease: Yes - GENITOURINARY/GYNECOLOGICAL Hx Sexually Transmitted Disorders: No - PSYCHIATRIC Hx Substance Use: No - SURGICAL HISTORY Hx Amputation: Yes Hx Cholecystectomy: Yes (2011) 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/2009) Hx Coronary Stent: Yes - ANESTHESIA Hx Anesthesia: Yes Hx Anesthesia Reactions: No Hx Malignant Hyperthermia: No Meds Allergies/Adverse Reactions: Allergies Allergy/AdvReac Type Severity Reaction Status Date / Time acetaminophen [From Percocet] Allergy RASH Verified 02/03/17 13:47 atenolol Allergy RASH Verified 02/03/17 13:47 digoxin Allergy RASH Verified 02/03/17 13:47 milk Allergy ITCHING Verified 02/03/17 13:47 morphine Allergy ITCHING Verified 02/03/17 13:47 oxycodone HCl [From Percocet] Allergy RASH Verified 02/03/17 13:47 Physical Exam - Constitutional Appears: Non-toxic, In Acute Distress - Head Exam Head Exam: ATRAUMATIC - Eye Exam Eye Exam: Conjunctival injection - ENT Exam ENT Exam: Mucous Membranes Dry - Neck Exam Neck exam: Positive for: Full Rom - Respiratory Exam Respiratory Exam: Decreased Breath Sounds, Prolonged Expiratory Phase - Cardiovascular Exam Cardiovascular Exam: Irregular Rhythm, +S1, +S2, +S4 - GI/Abdominal Exam GI & Abdominal Exam: Normal Bowel Sounds - Extremities Exam Additional comments: BILAT AMPUTATION - Back Exam Back exam: CVA tenderness (L) - Neurological Exam Neurological exam: Alert, Oriented x3 - Psychiatric Exam Psychiatric exam: Normal Affect - Skin Skin Exam: Pallor Results - Vital Signs Recent Vital Signs: Last Vital Signs Temp 97.7 F 03/04/17 07:40 Pulse 63 03/04/17 16:40 Resp 18 03/04/17 07:40 BP 120/65 03/04/17 17:24 Pulse Ox 100 03/04/17 07:40 - Labs Result Diagrams: 03/03/17 20:15 03/03/17 20:15 Labs: Laboratory Results - last 24 hr 03/04/17 03/04/17 03/04/17 06:37 07:45 12:14 POC Glucose (mg/dL) 304 H 108 Total Creatine Kinase < 20 L CK-MB (Mass) 1.94 Troponin I Troponin I, Quant 0.2280 H* 03/04/17 03/04/17 14:14 16:53 POC Glucose (mg/dL) 215 H Total Creatine Kinase CK-MB (Mass) Troponin I 0.3060 H* Troponin I, Quant Assessment & Plan - Assessment and Plan (Free Text) Assessment: LECOCYTOSIS DMID AT FLUTER CHEST PAIN CAD POSIVE AMY R/O PA ESRF HTN Plan: PER ORDERS Decision To Admit - Pt Status Changed To: Hospital Disposition Of: Inpatient - Admit Certification Admit to Inpatient:: After my assessment, the patient will require hospitalization for at least two midnights. This is because of the severity of symptoms shown, intensity of services needed, and/or the medical risk in this patient being treated as an outpatient. - InPatient: Physician Admission Certification:: PT WILLBE MONITERED FOR CARDIAC ENZYMS EKG WILL BE SEEN BY CARDIOLOGY - . Bed Request Type: Telemetry
[2017-03-04] MEDS: (Lantus) Insulin Glargine, Recombinant SC SCH (21:56)
--- NOTE | 2017-03-04 22:03 | CP.PCM.CON ---
History of Present Illness - History of Present Illness History of Present Illness: CARDIAC ELECTROPHYSIOLOGY CONSULT NOTE Reason for consult: Aflutter HPI: Patient is a 36 year old man with hx of CAD s/p CABG with subsequent RCA stent and closure of all SVG grafts; ESRD on HD; PAD s/p L BKA and R BKA; uncontrolled DM; labile HTN; Kleinfelter's syndrome; who complains of sudden onset palpitations and chest pain lasting for about 2 hours, occurs 1-2 times a month, no known triggers or relieving factors. He came to [facility] ED. Initial EKG showed atrial tachycardia at 140 bpm, and subsequent EKG showed typical atrial flutter. Patient then converted to sinus rhythm spontaneously, and has been maintaining sinus rhythm for past 24 hrs. Palpitations and chest pain improved. Denies any SOB, syncope, presyncope, fatigue, nausea or diaphoresis. EP is now consulted by Dr. Tavares for evaluation of possible AFL ablation. PMH: 1. CAD s/p CABG with subsequent closure of vein grafts and then had RCA stent. Non-revascularizable coronaries. 2. HTN uncontrolled: labile 3. DM uncontrolled (non compliant with diet) 4. PAD s/p L. BKA abd R. ray amputation and chronic R. heel ulcer; hx of R.SFA/ popliteal angioplasty and AT stent with eventual R. BKA. 5. kleinfelters 6. ASX moderate pulmonary stenosis 7. hx of chronic pain, hx of liver abscess and infections 8. legally blind 9. Pain medication dependence 10. Hx of non-compliance with missed HD in the past SOCHX: No Tobacco, ETOH or DRUBG abuse PSHX: as above ROS: legally blind, B/K BKA Review of Systems - Review of Systems All systems: reviewed and no additional remarkable complaints except - EENT Eyes: Blind Spots - Cardiovascular Cardiovascular: Chest Pain, Palpitations Past Patient History - Infectious Disease Hx of Infectious Diseases: None - Tetanus Immunizations Tetanus Immunization: >10 years Ago - Past Medical History & Family History Past Medical History?: Yes - Past Social History Smoking Status: Never Smoked - CARDIAC Hx Atrial Fibrillation: Yes Hx Cardia Arrhythmia: Yes Hx Congestive Heart Failure: Yes Hx Hypercholesterolemia: Yes Hx Hypertension: Yes - PULMONARY Hx Asthma: Yes Hx Bronchitis: Yes Hx Chronic Obstructive Pulmonary Disease (COPD): Yes Hx Pneumonia: Yes - NEUROLOGICAL Hx Alzheimer's Disease: Yes Hx Seizures: Yes - HEENT Hx HEENT Problems: Yes Hx Blind: Yes (legally blind) Hx Cataracts: Yes - RENAL Hx Chronic Kidney Disease: Yes - ENDOCRINE/METABOLIC Hx Hyperthyroidism: No Hx Hypothyroidism: Yes - HEMATOLOGICAL/ONCOLOGICAL Hx Anemia: Yes - INTEGUMENTARY Hx Dermatological Problems: No - MUSCULOSKELETAL/RHEUMATOLOGICAL Hx Falls: Yes - GASTROINTESTINAL Hx Gall Bladder Disease: Yes - GENITOURINARY/GYNECOLOGICAL Hx Sexually Transmitted Disorders: No - PSYCHIATRIC Hx Substance Use: No - SURGICAL HISTORY Hx Amputation: Yes Hx Cholecystectomy: Yes (2011) 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/2009) Hx Coronary Stent: Yes - ANESTHESIA Hx Anesthesia: Yes Hx Anesthesia Reactions: No Hx Malignant Hyperthermia: No Meds Allergies/Adverse Reactions: Allergies Allergy/AdvReac Type Severity Reaction Status Date / Time acetaminophen [From Percocet] Allergy RASH Verified 02/03/17 13:47 atenolol Allergy RASH Verified 02/03/17 13:47 digoxin Allergy RASH Verified 02/03/17 13:47 milk Allergy ITCHING Verified 02/03/17 13:47 morphine Allergy ITCHING Verified 02/03/17 13:47 oxycodone HCl [From Percocet] Allergy RASH Verified 02/03/17 13:47 - Medications Medications: Current Medications Albuterol/Ipratropium (Duoneb 3 Mg/0.5 Mg (3 Ml) Ud) 3 ml INH RQID [facility] Last Admin: 03/04/17 20:09 Dose: 3 ml Amlodipine Besylate (Norvasc) 10 mg PO DAILY [facility] Last Admin: 03/04/17 09:31 Dose: 10 mg Aspirin (Ecotrin) 81 mg PO DAILY [facility] Last Admin: 03/04/17 09:31 Dose: 81 mg Carvedilol (Coreg) 25 mg PO BID [facility] Last Admin: 03/04/17 17:24 Dose: 25 mg Epoetin Tom (Procrit) 3,000 unit IV TTS [facility] Hydralazine HCl (Apresoline) 50 mg PO Q8H [facility] Last Admin: 03/04/17 21:55 Dose: 50 mg Hydromorphone HCl (Dilaudid) 1 mg IVP Q6H PRN PRN Reason: Pain, moderate (4-7) Last Admin: 03/04/17 16:30 Dose: 1 mg Heparin Sodium/Sodium Chloride (Heparin 01925 Units/250ml 1/2 Normal Saline) 25 ,000 units in 250 mls @ 7.154 mls/hr IV .Q24H PRN; Protocol; 12 UNITS/KG/HR PRN Reason: PROTOCOL Last Admin: 03/04/17 17:16 Dose: 12 units/kg/hr, 7.154 mls/hr Insulin Glargine (Lantus) 10 unit SC HS [facility] Last Admin: 03/04/17 21:56 Dose: 10 units Insulin Human Regular (Novolin R) 0 unit SC ACHS [facility] PRN Reason: Protocol Last Admin: 03/04/17 21:57 Dose: Not Given Isosorbide Mononitrate (Imdur) 60 mg PO DAILY [facility] Last Admin: 03/04/17 09:31 Dose: 60 mg Physical Exam - Constitutional Appears: Well - Head Exam Head Exam: ATRAUMATIC - Eye Exam Eye Exam: Normal appearance - ENT Exam ENT Exam: Mucous Membranes Moist - Neck Exam Neck exam: Positive for: Normal Inspection - Respiratory Exam Respiratory Exam: Clear to Auscultation Bilateral - Cardiovascular Exam Cardiovascular Exam: Irregular Rhythm, +S1, +S2 - GI/Abdominal Exam GI & Abdominal Exam: Soft - Neurological Exam Neurological exam: Oriented x3 - Psychiatric Exam Psychiatric exam: Flat Affect Results - Vital Signs Recent Vital Signs: Last Vital Signs Temp 97.6 F 03/04/17 15:00 Pulse 63 03/04/17 16:40 Resp 18 03/04/17 15:00 BP 120/65 03/04/17 17:24 Pulse Ox 100 03/04/17 15:00 - Labs Result Diagrams: 03/03/17 20:15 03/03/17 20:15 Labs: Laboratory Results - last 24 hr 03/04/17 03/04/17 03/04/17 06:37 07:45 12:14 POC Glucose (mg/dL) 304 H 108 Total Creatine Kinase < 20 L CK-MB (Mass) 1.94 Troponin I Troponin I, Quant 0.2280 H* 03/04/17 03/04/17 03/04/17 14:14 16:53 21:20 POC Glucose (mg/dL) 215 H 251 H Total Creatine Kinase CK-MB (Mass) Troponin I 0.3060 H* Troponin I, Quant Assessment & Plan - Assessment and Plan (Free Text) Assessment: 1. Paroxysmal atrial tachycardia and paroxysmal atrial flutter -- Resulting in mild Tn elevation. Currently in sinus 2. CAD s/p CABG with subsequent closure of vein grafts and then had RCA stent. Non-revascularizable coronaries. 3. Severe PAD 4. ESRD on HD Plan: 1. Since patient has both atrial tachycardia and atrial flutter, an ablation procedure for her may be complex as she may have a left atrial source for her atrial tachycardia. This would be a higher risk procedure for stroke, since patient is noncompliant with her anticoagulation meds. 2. Therefore, I recommend amiodarone for now as a rhythm control strategy. Specifically, I recommend amiodarone 200mg BID x 1 month, then 200mg daily. 3. If she has any atrial arrhythmias that are refractory to amiodarone, then an ablation procedure would be recommended 4. She will need periodic monitoring of TFT's, LFT's and PFT's while on amiodarone 5. Continue anticoagulation for stroke prevention
[2017-03-04 22:57] LABS: PROTHROMBIN TIME 11.7 SECONDS (9.7-12.2)
[2017-03-05] MEDS: HYDROmorphone 1 mg/ml ISec IVP PRN ×3 (05:07→18:10)
[2017-03-05] MEDS: Albuterol-Ipratrop 3 mg / 0.5 (3 ml) UD INH SCH ×4 (07:20→20:29)
[2017-03-05 08:25] LABS: BASO # 0.1 K/uL (0.0-0.2); BASO % 0.5 % (0.0-2.0); EOS # 0.3 K/uL (0.0-0.7); EOS % 2.2 % (0.0-4.0); LYMPH # 2.3 K/uL (1.0-4.3); LYMPH % 15.8 % (20.0-40.0); MEAN CORPUSCULAR HEMOGLOBIN 26.4 pg (27.0-31.0); MEAN CORPUSCULAR HGB CONC 30.4 g/dL (33.0-37.0); MEAN PLATELET VOLUME 8.7 fL (7.2-11.7); MONO # 0.6 K/uL (0.0-0.8); MONO % 3.9 % (0.0-10.0); NEUT # 11.4 K/uL (1.8-7.0); NEUT % 77.6 % (50.0-75.0); RBC 3.41 Mil/uL (4.40-5.90); RED CELL DISTRIBUTION WIDTH 17.7 % (11.5-14.5); WHITE BLOOD COUNT 14.7 K/uL (4.8-10.8)
[2017-03-05] MEDS: (Novolin R) Insulin Human Regular 100 units/ml vial SC SCH ×5 (08:26→21:30)
[2017-03-05 08:29] LABS: INR 1.1; PROTHROMBIN TIME 12.2 SECONDS (9.7-12.2)
[2017-03-05 08:46] LABS: CK-MB 0.85 ng/mL (0.0-3.38)
[2017-03-05 08:48] LABS: CALCIUM 7.9 mg/dl (8.6-10.4)
[2017-03-05] MEDS ORDERED: Enoxaparin 30 mg Syringe SC SCH (10:00)
--- NOTE | 2017-03-05 10:58 | CP.PCM.PN ---
Subjective - Date & Time of Evaluation Date of Evaluation: 03/05/17 Time of Evaluation: 10:55 - Subjective Subjective: pt feels beter today less chest pain less sob geting dialysis now Objective - Vital Signs/Intake and Output Vital Signs (last 24 hours): Temp Pulse Resp BP Pulse Ox 97.9 F 113 H 17 97/57 L 100 03/05/17 09:30 03/05/17 09:30 03/05/17 09:30 03/05/17 10:30 03/05/17 09:30 Intake and Output: 03/05/17 03/05/17 06:59 18:59 Intake Total 235.5 Balance 235.5 - Medications Medications: Current Medications Albuterol/Ipratropium (Duoneb 3 Mg/0.5 Mg (3 Ml) Ud) 3 ml INH RQID [facility] Last Admin: 03/05/17 07:20 Dose: Not Given Amiodarone HCl (Cordarone) 200 mg PO BID [facility] Amlodipine Besylate (Norvasc) 10 mg PO DAILY [facility] Last Admin: 03/04/17 09:31 Dose: 10 mg Aspirin (Ecotrin) 81 mg PO DAILY [facility] Last Admin: 03/04/17 09:31 Dose: 81 mg Carvedilol (Coreg) 25 mg PO BID [facility] Last Admin: 03/04/17 17:24 Dose: 25 mg Epoetin Tom (Procrit) 3,000 unit IV TTS [facility] Hydralazine HCl (Apresoline) 50 mg PO Q8H [facility] Last Admin: 03/05/17 05:10 Dose: 50 mg Hydromorphone HCl (Dilaudid) 1 mg IVP Q6H PRN PRN Reason: Pain, moderate (4-7) Last Admin: 03/05/17 05:07 Dose: 1 mg Heparin Sodium/Sodium Chloride (Heparin 08305 Units/250ml 1/2 Normal Saline) 25 ,000 units in 250 mls @ 7.154 mls/hr IV .Q24H PRN; Protocol; 12 UNITS/KG/HR PRN Reason: PROTOCOL Last Admin: 03/04/17 17:16 Dose: 12 units/kg/hr, 7.154 mls/hr Insulin Glargine (Lantus) 10 unit SC HS [facility] Last Admin: 03/04/17 21:56 Dose: 10 units Insulin Human Regular (Novolin R) 0 unit SC ACHS [facility] PRN Reason: Protocol Last Admin: 03/05/17 08:33 Dose: 3 unit Isosorbide Mononitrate (Imdur) 60 mg PO DAILY [facility] Last Admin: 03/04/17 09:31 Dose: 60 mg - Labs Labs: 03/05/17 08:10 03/05/17 08:10 PT 12.2 SECONDS (9.7-12.2) 03/05/17 08:10 INR 1.1 03/05/17 08:10 APTT 45 SECONDS (21-34) H D 03/05/17 08:46 - Constitutional Appears: Non-toxic - Head Exam Head Exam: NORMAL INSPECTION - Eye Exam Eye Exam: Conjunctival injection - ENT Exam ENT Exam: Mucous Membranes Moist - Neck Exam Neck Exam: Full ROM - Respiratory Exam Respiratory Exam: Decreased Breath Sounds - Cardiovascular Exam Cardiovascular Exam: REGULAR RHYTHM - GI/Abdominal Exam GI & Abdominal Exam: Normal Bowel Sounds - Rectal Exam Rectal Exam: NORMAL INSPECTION - Back Exam Back Exam: NORMAL INSPECTION - Neurological Exam Neurological Exam: Oriented x3 - Psychiatric Exam Psychiatric exam: Normal Affect - Skin Skin Exam: Normal Color, Pallor Assessment and Plan - Assessment and Plan (Free Text) Assessment: chest pain cad chf htn dmid lecocytosis Plan: as per orders
--- NOTE | 2017-03-05 12:25 | CP.PCM.PN ---
Subjective - Date & Time of Evaluation Date of Evaluation: 03/05/17 Time of Evaluation: 11:50 - Subjective Subjective: Seen on dialysis Appears comfortable Objective - Vital Signs/Intake and Output Vital Signs (last 24 hours): Temp Pulse Resp BP Pulse Ox 97.9 F 113 H 17 129/75 100 03/05/17 09:30 03/05/17 09:30 03/05/17 09:30 03/05/17 11:30 03/05/17 09:30 Intake and Output: 03/05/17 03/05/17 06:59 18:59 Intake Total 235.5 Balance 235.5 - Medications Medications: Current Medications Albuterol/Ipratropium (Duoneb 3 Mg/0.5 Mg (3 Ml) Ud) 3 ml INH RQID [facility] Last Admin: 03/05/17 11:08 Dose: Not Given Amiodarone HCl (Cordarone) 200 mg PO BID [facility] Last Admin: 03/05/17 11:56 Dose: Not Given Amlodipine Besylate (Norvasc) 10 mg PO DAILY [facility] Last Admin: 03/05/17 11:56 Dose: Not Given Aspirin (Ecotrin) 81 mg PO DAILY [facility] Last Admin: 03/05/17 11:56 Dose: Not Given Carvedilol (Coreg) 25 mg PO BID [facility] Last Admin: 03/05/17 11:56 Dose: Not Given Epoetin Tom (Procrit) 3,000 unit IV TTS [facility] Hydralazine HCl (Apresoline) 50 mg PO Q8H [facility] Last Admin: 03/05/17 05:10 Dose: 50 mg Hydromorphone HCl (Dilaudid) 1 mg IVP Q6H PRN PRN Reason: Pain, moderate (4-7) Last Admin: 03/05/17 11:55 Dose: 1 mg Heparin Sodium/Sodium Chloride (Heparin 51772 Units/250ml 1/2 Normal Saline) 25 ,000 units in 250 mls @ 7.154 mls/hr IV .Q24H PRN; Protocol; 12 UNITS/KG/HR PRN Reason: PROTOCOL Last Admin: 03/04/17 17:16 Dose: 12 units/kg/hr, 7.154 mls/hr Insulin Glargine (Lantus) 10 unit SC HS [facility] Last Admin: 03/04/17 21:56 Dose: 10 units Insulin Human Regular (Novolin R) 0 unit SC ACHS [facility] PRN Reason: Protocol Last Admin: 03/05/17 08:33 Dose: 3 unit Isosorbide Mononitrate (Imdur) 60 mg PO DAILY [facility] Last Admin: 03/05/17 11:56 Dose: Not Given - Labs Labs: 03/05/17 08:10 03/05/17 08:10 PT 12.2 SECONDS (9.7-12.2) 03/05/17 08:10 INR 1.1 03/05/17 08:10 APTT 45 SECONDS (21-34) H D 03/05/17 08:46 - Respiratory Exam Additional comments: Lungs clear - Cardiovascular Exam Cardiovascular Exam: REGULAR RHYTHM - Extremities Exam Additional comments: B/L BKA Assessment and Plan - Assessment and Plan (Free Text) Assessment: ESRD on maintenance HD HTN CP, CAD IDDM Plan: Stable on dialysis Continue HD per schedule
--- NOTE | 2017-03-05 12:34 | CP.PCM.PN ---
Subjective - Date & Time of Evaluation Date of Evaluation: 03/05/17 Time of Evaluation: 12:33 - Subjective Subjective: Events reviewed EP consult appreciated No CP or SOB Objective - Vital Signs/Intake and Output Vital Signs (last 24 hours): Temp Pulse Resp BP Pulse Ox 97.9 F 113 H 17 129/75 100 03/05/17 09:30 03/05/17 09:30 03/05/17 09:30 03/05/17 11:30 03/05/17 09:30 Intake and Output: 03/05/17 03/05/17 06:59 18:59 Intake Total 235.5 Balance 235.5 - Medications Medications: Current Medications Albuterol/Ipratropium (Duoneb 3 Mg/0.5 Mg (3 Ml) Ud) 3 ml INH RQID [facility] Last Admin: 03/05/17 11:08 Dose: Not Given Amiodarone HCl (Cordarone) 200 mg PO BID [facility] Last Admin: 03/05/17 11:56 Dose: Not Given Amlodipine Besylate (Norvasc) 10 mg PO DAILY [facility] Last Admin: 03/05/17 11:56 Dose: Not Given Aspirin (Ecotrin) 81 mg PO DAILY [facility] Last Admin: 03/05/17 11:56 Dose: Not Given Carvedilol (Coreg) 25 mg PO BID [facility] Last Admin: 03/05/17 11:56 Dose: Not Given Epoetin Tom (Procrit) 3,000 unit IV TTS [facility] Hydralazine HCl (Apresoline) 50 mg PO Q8H [facility] Last Admin: 03/05/17 05:10 Dose: 50 mg Hydromorphone HCl (Dilaudid) 1 mg IVP Q6H PRN PRN Reason: Pain, moderate (4-7) Last Admin: 03/05/17 11:55 Dose: 1 mg Heparin Sodium/Sodium Chloride (Heparin 54575 Units/250ml 1/2 Normal Saline) 25 ,000 units in 250 mls @ 7.154 mls/hr IV .Q24H PRN; Protocol; 12 UNITS/KG/HR PRN Reason: PROTOCOL Last Admin: 03/04/17 17:16 Dose: 12 units/kg/hr, 7.154 mls/hr Insulin Glargine (Lantus) 10 unit SC HS [facility] Last Admin: 03/04/17 21:56 Dose: 10 units Insulin Human Regular (Novolin R) 0 unit SC ACHS [facility] PRN Reason: Protocol Last Admin: 03/05/17 08:33 Dose: 3 unit Isosorbide Mononitrate (Imdur) 60 mg PO DAILY [facility] Last Admin: 03/05/17 11:56 Dose: Not Given - Labs Labs: 03/05/17 08:10 03/05/17 08:10 PT 12.2 SECONDS (9.7-12.2) 03/05/17 08:10 INR 1.1 03/05/17 08:10 APTT 45 SECONDS (21-34) H D 03/05/17 08:46 - Constitutional Appears: No Acute Distress, Chronically Ill - Head Exam Head Exam: ATRAUMATIC, NORMAL INSPECTION - Eye Exam Eye Exam: absent: Normal appearance (legally blind) - ENT Exam ENT Exam: Mucous Membranes Moist - Neck Exam Neck Exam: Full ROM, Normal Inspection - Respiratory Exam Respiratory Exam: Clear to Ausculation Bilateral, NORMAL BREATHING PATTERN. absent: Rhonchi, Wheezes - Cardiovascular Exam Cardiovascular Exam: REGULAR RHYTHM, +S1, +S2, Murmur. absent: Gallop - GI/Abdominal Exam GI & Abdominal Exam: Soft, Normal Bowel Sounds. absent: Tenderness - Neurological Exam Neurological Exam: Alert, Awake, Oriented x3 - Psychiatric Exam Psychiatric exam: Normal Affect, Normal Mood - Skin Skin Exam: Normal Color, Warm (B/L BKA) Assessment and Plan - Assessment and Plan (Free Text) Assessment: CAD: hx of CABG and subsequent stent; patient CAD status is stable and should be medically treated wth Coreg,IMDUR/Statin. He has had normal LV function with chronic diastolic dysfunction. EKG: read by me: Aflutter 2:[address] chages, LVH and LAE * LDL goal 50-70 * Diabetic control * ASA, Coreg, Imdur, ranexa * No active cardiac sx's; cont medical therapy. * Cont volume removal with HD HTN: labile Continue medical treatment as prescribed BP is better on max doses of coreg, hydralazine, Norvasc, clonidine: add minoxidil 2.5 daily in addition if needed. AFLUTTER: New onset: Mild inc troponin is likely secondary to same and fast rate : now better controlled. Patient will need rate control and anticoagulation with coumadin for INR goal 2-3 if no contraindications from GI standpoint. Triple therapy would increase risk of bleeding therefore I suggest ASA and Coumadin or Plavix and coumadin as choice of therapy. Appreciate EP consultation: Atrial tachycardia & AFLUTTER to be treated with amiodarone 200 BID x1 month then 200 daily along with coumadin for stroke prevention for INR 2-3. Will defer any ablation until or unless clinically significant or uncontrollable arrythmia. DM: labile: Cont medical rx continued education and counseling management per primary team PAD: S/P B/L BKA ASX No signs of ulcer or wound dehiscence ESRD: Stable chem cont maintainence HD, Monitor lytes
[2017-03-05] MEDS: Epoetin Alfa Dialysis 3000 UNIT/ML Inj IV SCH (14:38)
[2017-03-05] MEDS: (Lantus) Insulin Glargine, Recombinant SC SCH (21:49)
[2017-03-06] MEDS: HYDROmorphone 1 mg/ml ISec IVP PRN ×4 (00:28→18:31)
[2017-03-06] MEDS: Heparin25000 units/250ml 1/2NS 25,000 UNITS/250 ML BAG IV PRN ×2 (06:08→11:34)
[2017-03-06] MEDS: (Novolin R) Insulin Human Regular 100 units/ml vial SC SCH ×4 (08:05→21:59)
[2017-03-06] MEDS: Albuterol-Ipratrop 3 mg / 0.5 (3 ml) UD INH SCH ×4 (08:20→19:52)
[2017-03-06 09:49] LABS: CK-MB 0.51 ng/mL (0.0-3.38)
--- NOTE | 2017-03-06 14:09 | CP.PCM.PN ---
Subjective - Date & Time of Evaluation Date of Evaluation: 03/06/17 Time of Evaluation: 14:06 - Subjective Subjective: patient ASX now NSR No SOB or CP Objective - Vital Signs/Intake and Output Vital Signs (last 24 hours): Temp Pulse Resp BP Pulse Ox 98.1 F 69 20 121/69 100 03/06/17 08:00 03/06/17 08:00 03/06/17 08:00 03/06/17 11:27 03/06/17 08:00 Intake and Output: 03/06/17 03/06/17 06:59 18:59 Intake Total 250 Balance 250 - Medications Medications: Current Medications Albuterol/Ipratropium (Duoneb 3 Mg/0.5 Mg (3 Ml) Ud) 3 ml INH RQID [facility] Last Admin: 03/06/17 12:07 Dose: Not Given Amiodarone HCl (Cordarone) 200 mg PO BID [facility] Last Admin: 03/06/17 11:26 Dose: 200 mg Amlodipine Besylate (Norvasc) 10 mg PO DAILY [facility] Last Admin: 03/06/17 11:26 Dose: 10 mg Aspirin (Ecotrin) 81 mg PO DAILY [facility] Last Admin: 03/06/17 11:26 Dose: 81 mg Carvedilol (Coreg) 25 mg PO BID [facility] Last Admin: 03/06/17 11:27 Dose: 25 mg Epoetin Tom (Procrit) 3,000 unit IV TTS [facility] Last Admin: 03/05/17 14:38 Dose: 3,000 unit Hydralazine HCl (Apresoline) 50 mg PO Q8H [facility] Last Admin: 03/06/17 07:12 Dose: 50 mg Hydromorphone HCl (Dilaudid) 1 mg IVP Q6H PRN PRN Reason: Pain, moderate (4-7) Last Admin: 03/06/17 12:21 Dose: 1 mg Heparin Sodium/Sodium Chloride (Heparin 21508 Units/250ml 1/2 Normal Saline) 25 ,000 units in 250 mls @ 8.347 mls/hr IV .Q24H PRN; Protocol; 14 UNITS/KG/HR PRN Reason: PROTOCOL Last Admin: 03/06/17 11:34 Dose: 14 units/kg/hr, 8.347 mls/hr Insulin Glargine (Lantus) 10 unit SC HS [facility] Last Admin: 03/05/17 21:49 Dose: 10 units Insulin Human Regular (Novolin R) 0 unit SC ACHS [facility] PRN Reason: Protocol Last Admin: 03/06/17 12:52 Dose: 6 unit Isosorbide Mononitrate (Imdur) 60 mg PO DAILY [facility] Last Admin: 03/06/17 11:26 Dose: 60 mg - Labs Labs: 03/05/17 08:10 03/05/17 08:10 PT 12.2 SECONDS (9.7-12.2) 03/05/17 08:10 INR 1.1 03/05/17 08:10 APTT 44 SECONDS (21-34) H 03/06/17 10:05 - Constitutional Appears: Chronically Ill - Head Exam Head Exam: ATRAUMATIC, NORMAL INSPECTION, NORMOCEPHALIC - Eye Exam Eye Exam: absent: Normal appearance - ENT Exam ENT Exam: Mucous Membranes Moist, Normal Oropharynx - Respiratory Exam Respiratory Exam: Clear to Ausculation Bilateral, NORMAL BREATHING PATTERN - Cardiovascular Exam Cardiovascular Exam: REGULAR RHYTHM, +S1, +S2, Murmur. absent: Gallop - GI/Abdominal Exam GI & Abdominal Exam: Soft, Normal Bowel Sounds. absent: Tenderness - Extremities Exam Extremities Exam: absent: Normal Inspection (b/l BKA) - Neurological Exam Neurological Exam: Alert, Awake, Oriented x3 Assessment and Plan - Assessment and Plan (Free Text) Assessment: CAD: hx of CABG and subsequent stent; patient CAD status is stable and should be medically treated wth Coreg,IMDUR/Statin. He has had normal LV function with chronic diastolic dysfunction. EKG: read by me: Aflutter 2:[address] chages, LVH and LAE * LDL goal 50-70 * Diabetic control * ASA, Coreg, Imdur, ranexa * No active cardiac sx's; cont medical therapy. * Cont volume removal with HD HTN: labile Continue medical treatment as prescribed BP is better on max doses of coreg, hydralazine, Norvasc, clonidine: add minoxidil 2.5 daily in addition if needed. AFLUTTER: New onset: Mild inc troponin is likely secondary to same and fast rate : now better controlled. Patient will need rate control and anticoagulation with coumadin for INR goal 2-3 if no contraindications from GI standpoint. Triple therapy would increase risk of bleeding therefore I suggest ASA and Coumadin or Plavix and coumadin as choice of therapy. Appreciate EP consultation: Atrial tachycardia & AFLUTTER to be treated with amiodarone 200 BID x1 month then 200 daily along with coumadin for stroke prevention for INR 2-3. Will defer any ablation until or unless clinically significant or uncontrollable arrythmia. * Currently anemia hgb 9.0: If high risk for GI bleed suggest ASA 81 and plavix only. DM: labile: Cont medical rx continued education and counseling management per primary team PAD: S/P B/L BKA ASX No signs of ulcer or wound dehiscence ESRD: Stable chem cont maintainence HD, Monitor lytes
--- NOTE | 2017-03-06 15:08 | CP.PCM.PN ---
Subjective - Date & Time of Evaluation Date of Evaluation: 03/06/17 Time of Evaluation: 03:30 - Subjective Subjective: No c/o SOB Comfortable supine Objective - Vital Signs/Intake and Output Vital Signs (last 24 hours): Temp Pulse Resp BP Pulse Ox 98.1 F 69 20 121/69 100 03/06/17 08:00 03/06/17 08:00 03/06/17 08:00 03/06/17 11:27 03/06/17 08:00 Intake and Output: 03/06/17 03/06/17 06:59 18:59 Intake Total 250 Balance 250 - Medications Medications: Current Medications Albuterol/Ipratropium (Duoneb 3 Mg/0.5 Mg (3 Ml) Ud) 3 ml INH RQID [facility] Last Admin: 03/06/17 12:07 Dose: Not Given Amiodarone HCl (Cordarone) 200 mg PO BID [facility] Last Admin: 03/06/17 11:26 Dose: 200 mg Amlodipine Besylate (Norvasc) 10 mg PO DAILY [facility] Last Admin: 03/06/17 11:26 Dose: 10 mg Aspirin (Ecotrin) 81 mg PO DAILY [facility] Last Admin: 03/06/17 11:26 Dose: 81 mg Carvedilol (Coreg) 25 mg PO BID [facility] Last Admin: 03/06/17 11:27 Dose: 25 mg Epoetin Tom (Procrit) 3,000 unit IV TTS [facility] Last Admin: 03/05/17 14:38 Dose: 3,000 unit Hydralazine HCl (Apresoline) 50 mg PO Q8H [facility] Last Admin: 03/06/17 14:11 Dose: 50 mg Hydromorphone HCl (Dilaudid) 1 mg IVP Q6H PRN PRN Reason: Pain, moderate (4-7) Last Admin: 03/06/17 12:21 Dose: 1 mg Heparin Sodium/Sodium Chloride (Heparin 30301 Units/250ml 1/2 Normal Saline) 25 ,000 units in 250 mls @ 8.347 mls/hr IV .Q24H PRN; Protocol; 14 UNITS/KG/HR PRN Reason: PROTOCOL Last Admin: 03/06/17 11:34 Dose: 14 units/kg/hr, 8.347 mls/hr Insulin Glargine (Lantus) 10 unit SC HS [facility] [place] Last Admin: 03/05/17 21:49 Dose: 10 units Insulin Human Regular (Novolin R) 0 unit SC ACHS [facility] PRN Reason: Protocol Last Admin: 03/06/17 12:52 Dose: 6 unit Isosorbide Mononitrate (Imdur) 60 mg PO DAILY [facility] Last Admin: 03/06/17 11:26 Dose: 60 mg - Labs Labs: 03/05/17 08:10 03/05/17 08:10 PT 12.2 SECONDS (9.7-12.2) 03/05/17 08:10 INR 1.1 03/05/17 08:10 APTT 44 SECONDS (21-34) H 03/06/17 10:05 - Respiratory Exam Additional comments: Lungs clear - Cardiovascular Exam Cardiovascular Exam: REGULAR RHYTHM - Extremities Exam Additional comments: B/L BKA Assessment and Plan - Assessment and Plan (Free Text) Assessment: ESRD on HD CAD/CABG HTN IDDM Plan: Stable on dialysis Continue HD per schedule BP controlled
--- NOTE | 2017-03-06 16:22 | CP.PCM.PN ---
Subjective - Date & Time of Evaluation Date of Evaluation: 03/06/17 Time of Evaluation: 16:19 - Subjective Subjective: pt stioll c/o of chest pain Objective - Vital Signs/Intake and Output Vital Signs (last 24 hours): Temp Pulse Resp BP Pulse Ox 97.7 F 63 18 108/63 100 03/06/17 16:00 03/06/17 16:00 03/06/17 16:00 03/06/17 16:00 03/06/17 16:00 Intake and Output: 03/06/17 03/06/17 06:59 18:59 Intake Total 250 Balance 250 - Medications Medications: Current Medications Albuterol/Ipratropium (Duoneb 3 Mg/0.5 Mg (3 Ml) Ud) 3 ml INH RQID [facility] Last Admin: 03/06/17 12:07 Dose: Not Given Amiodarone HCl (Cordarone) 200 mg PO BID [facility] Last Admin: 03/06/17 11:26 Dose: 200 mg Amlodipine Besylate (Norvasc) 10 mg PO DAILY [facility] Last Admin: 03/06/17 11:26 Dose: 10 mg Aspirin (Ecotrin) 81 mg PO DAILY [facility] Last Admin: 03/06/17 11:26 Dose: 81 mg Carvedilol (Coreg) 25 mg PO BID [facility] Last Admin: 03/06/17 11:27 Dose: 25 mg Epoetin Tom (Procrit) 3,000 unit IV TTS [facility] Last Admin: 03/05/17 14:38 Dose: 3,000 unit Hydralazine HCl (Apresoline) 50 mg PO Q8H [facility] Last Admin: 03/06/17 14:11 Dose: 50 mg Hydromorphone HCl (Dilaudid) 1 mg IVP Q6H PRN PRN Reason: Pain, moderate (4-7) Last Admin: 03/06/17 12:21 Dose: 1 mg Heparin Sodium/Sodium Chloride (Heparin 32290 Units/250ml 1/2 Normal Saline) 25 ,000 units in 250 mls @ 8.347 mls/hr IV .Q24H PRN; Protocol; 14 UNITS/KG/HR PRN Reason: PROTOCOL Last Admin: 03/06/17 11:34 Dose: 14 units/kg/hr, 8.347 mls/hr Insulin Detemir (Levemir) 14 unit SC [facility] Insulin Human Regular (Novolin R) 0 unit SC ACHS [facility] PRN Reason: Protocol Last Admin: 03/06/17 12:52 Dose: 6 unit Isosorbide Mononitrate (Imdur) 60 mg PO DAILY [facility] Last Admin: 03/06/17 11:26 Dose: 60 mg - Labs Labs: 03/05/17 08:10 03/05/17 08:10 PT 12.2 SECONDS (9.7-12.2) 03/05/17 08:10 INR 1.1 03/05/17 08:10 APTT 44 SECONDS (21-34) H 03/06/17 10:05 - Constitutional Appears: Non-toxic - Head Exam Head Exam: NORMAL INSPECTION - Eye Exam Eye Exam: Conjunctival injection - ENT Exam ENT Exam: Mucous Membranes Moist - Neck Exam Neck Exam: Full ROM - Respiratory Exam Respiratory Exam: Clear to Ausculation Bilateral - Cardiovascular Exam Cardiovascular Exam: REGULAR RHYTHM, +S1, +S2, +S4 - GI/Abdominal Exam GI & Abdominal Exam: Normal Bowel Sounds - Rectal Exam Rectal Exam: NORMAL INSPECTION - Back Exam Back Exam: NORMAL INSPECTION - Psychiatric Exam Psychiatric exam: Depressed - Skin Skin Exam: Normal Color, Pallor Assessment and Plan - Assessment and Plan (Free Text) Assessment: dm bs hi today chest pain still cad esrf depresion Plan: cont curent treatment
--- NOTE | 2017-03-06 18:58 | CP.PCM.CON ---
History of Present Illness - History of Present Illness History of Present Illness: This is a case of 36 year old male, well known to me for many yrs admitted for chest pain, ESRD on HD and new onset atrial flutter. Patient referred by Dr. Li for comanagement of depression, anxiety and opiate dependence ( pain meds). Patient has been complaining of chest pain before admission to the hospital. Has hx of CAD, DM, and chronic pain syndrome and has been dependent on narcotics for yrs. Patient has diabetic neuropathy and taking Dilaudid prn. Patient has been taking Zoloft 50 mg po daily for depression. Has been complaining of insomnia and anxiety and asking for Xanax at night.Has been compliant with dialysis tx. Patient still meds seeking but amenable with current dose of Dilaudid 1 mg ivp q 6h prn and not asking for Benadryl prn together with Dilaudid. Past Psych HX- hx of depression and delirium. Hx of seeing tigers in the past when taking too much narcotics. Medical hx- DM, CAD, PVD, bilateral amputee Drug and alcohol hx- has been dependent on narcotic pain meds. Psychosocial HX- lives with father and has 31 hrs of [employer] at home. MSE- fairly developed male, legally blind. Ox3. mood is anxious,chronically depressed, speech is spontaneous, affect is reactive. TP- coherent TC- no si or hi, no psychosis. Attention and Memory- fair. Insight and Judgment limited. Impulse control fair. Patient is a bilateral amputee. Review of Systems - Constitutional Constitutional: Fatigue, Weakness - EENT Additional comments: pt is legally blind, no headache - Cardiovascular Additional comments: no chest pain, no palpitations - Respiratory Additional comments: no dyspnea - Gastrointestinal Additional comments: patient is eating well, no abdominal pain - Genitourinary Additional comments: no dysuria - Musculoskeletal Musculoskeletal: Muscle Weakness Additional comments: Patient is a bilateral amputee - Integumentary Additional comments: no pruritus - Neurological Neurological: Weakness - Psychiatric Psychiatric: Anxiety, Depression Past Patient History - Infectious Disease Hx of Infectious Diseases: None - Tetanus Immunizations Tetanus Immunization: >10 years Ago - Past Medical History & Family History Past Medical History?: Yes - Past Social History Smoking Status: Never Smoked - CARDIAC Hx Cardiac Disorders: Yes (CARDIAC ARRHYTHMIA; CAD; ATRIAL FIB) Hx Congestive Heart Failure: Yes Hx Hypertension: Yes - PULMONARY Hx Chronic Obstructive Pulmonary Disease (COPD): Yes - NEUROLOGICAL HX Cerebrovascular Accident: Yes - HEENT Hx HEENT Problems: Yes Hx Blind: Yes (legally blind) Hx Cataracts: Yes - RENAL Hx Chronic Kidney Disease: Yes - ENDOCRINE/METABOLIC Hx Diabetes Mellitus Type 2: Yes - HEMATOLOGICAL/ONCOLOGICAL Hx Anemia: Yes - INTEGUMENTARY Hx Dermatological Problems: No - MUSCULOSKELETAL/RHEUMATOLOGICAL Hx Arthritis: Yes - GASTROINTESTINAL Hx Gall Bladder Disease: Yes - GENITOURINARY/GYNECOLOGICAL Hx Sexually Transmitted Disorders: No - PSYCHIATRIC Hx Substance Use: No - SURGICAL HISTORY Hx Amputation: Yes Hx Cholecystectomy: Yes (2011) 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/2009) Hx Coronary Stent: Yes - ANESTHESIA Hx Anesthesia: Yes Hx Anesthesia Reactions: No Hx Malignant Hyperthermia: No Meds Allergies/Adverse Reactions: Allergies Allergy/AdvReac Type Severity Reaction Status Date / Time acetaminophen [From Percocet] Allergy RASH Verified 02/03/17 13:47 atenolol Allergy RASH Verified 02/03/17 13:47 digoxin Allergy RASH Verified 02/03/17 13:47 milk Allergy ITCHING Verified 02/03/17 13:47 morphine Allergy ITCHING Verified 02/03/17 13:47 oxycodone HCl [From Percocet] Allergy RASH Verified 02/03/17 13:47 - Medications Medications: Current Medications Albuterol/Ipratropium (Duoneb 3 Mg/0.5 Mg (3 Ml) Ud) 3 ml INH RQID [facility] Last Admin: 03/06/17 12:07 Dose: Not Given Alprazolam (Xanax) 1 mg PO [facility] Amiodarone HCl (Cordarone) 200 mg PO BID [facility] Last Admin: 03/06/17 18:29 Dose: 200 mg Amlodipine Besylate (Norvasc) 10 mg PO DAILY [facility] Last Admin: 03/06/17 11:26 Dose: 10 mg Aspirin (Ecotrin) 81 mg PO DAILY [facility] Last Admin: 03/06/17 11:26 Dose: 81 mg Carvedilol (Coreg) 25 mg PO BID [facility] Last Admin: 03/06/17 18:29 Dose: 25 mg Epoetin Tom (Procrit) 3,000 unit IV TTS [facility] Last Admin: 03/05/17 14:38 Dose: 3,000 unit Hydralazine HCl (Apresoline) 50 mg PO Q8H [facility] Last Admin: 03/06/17 14:11 Dose: 50 mg Hydromorphone HCl (Dilaudid) 1 mg IVP Q6H PRN PRN Reason: Pain, moderate (4-7) Last Admin: 03/06/17 18:31 Dose: 1 mg Heparin Sodium/Sodium Chloride (Heparin 43790 Units/250ml 1/2 Normal Saline) 25 ,000 units in 250 mls @ 8.347 mls/hr IV .Q24H PRN; Protocol; 14 UNITS/KG/HR PRN Reason: PROTOCOL Last Admin: 03/06/17 11:34 Dose: 14 units/kg/hr, 8.347 mls/hr Insulin Detemir (Levemir) 14 unit SC HS [facility] Insulin Human Regular (Novolin R) 0 unit SC ACHS [facility] PRN Reason: Protocol Last Admin: 03/06/17 18:30 Dose: 3 unit Isosorbide Mononitrate (Imdur) 60 mg PO DAILY [facility] Last Admin: 03/06/17 11:26 Dose: 60 mg Results - Vital Signs Recent Vital Signs: Last Vital Signs Temp 97.7 F 03/06/17 16:00 Pulse 63 03/06/17 16:00 Resp 18 03/06/17 16:00 BP 105/50 L 03/06/17 18:29 Pulse Ox 100 03/06/17 16:00 - Labs Result Diagrams: 03/05/17 08:10 03/05/17 08:10 Labs: Laboratory Results - last 24 hr 03/05/17 03/06/17 03/06/17 21:14 06:34 09:25 APTT POC Glucose (mg/dL) 278 H 142 H Total Creatine Kinase < 20 L CK-MB (Mass) 0.51 Troponin I, Quant 0.1520 H* 03/06/17 03/06/17 03/06/17 10:05 11:40 16:32 APTT 44 H POC Glucose (mg/dL) 346 H 213 H Total Creatine Kinase CK-MB (Mass) Troponin I, Quant Assessment & Plan - Assessment and Plan (Free Text) Assessment: Hx of recurrent depression, delirium, mood disorder CAD, DM, PVD, neuropathy Plan: Patient to continue Dilaudid 1 mg ivp q 6hrs prn for pain. Add Xanax 1 mg po hs for anxiety. Add Zoloft 50 mg po daily for depression. Continue dialysis as ordered. Continue tx plan as outlined. - Date & Time Date: 03/06/17 Time: 19:05
[2017-03-06] MEDS: Insulin Detemir 100 units/ml Vial (Levemir) SC SCH (22:01)
[2017-03-07] MEDS: HYDROmorphone 1 mg/ml ISec IVP PRN (04:33)
[2017-03-07] MEDS: Albuterol-Ipratrop 3 mg / 0.5 (3 ml) UD INH SCH ×4 (07:38→19:40)
[2017-03-07 08:14] LABS: INR 1.1; PROTHROMBIN TIME 12.6 SECONDS (9.7-12.2)
[2017-03-07] MEDS: (Novolin R) Insulin Human Regular 100 units/ml vial SC SCH ×4 (08:36→21:38)
[2017-03-07] MEDS: Epoetin Alfa Dialysis 3000 UNIT/ML Inj IV SCH (10:55)
--- NOTE | 2017-03-07 11:31 | CP.PCM.PN ---
Subjective - Date & Time of Evaluation Date of Evaluation: 03/07/17 Time of Evaluation: 10:20 - Subjective Subjective: Seen on dialysis No SOB Objective - Vital Signs/Intake and Output Vital Signs (last 24 hours): Temp Pulse Resp BP Pulse Ox 97.5 F L 63 17 120/53 L 100 03/07/17 09:30 03/07/17 09:30 03/07/17 09:30 03/07/17 10:30 03/07/17 09:30 Intake and Output: 03/07/17 03/07/17 06:59 18:59 Intake Total 306.4 Balance 306.4 - Medications Medications: Current Medications Albuterol/Ipratropium (Duoneb 3 Mg/0.5 Mg (3 Ml) Ud) 3 ml INH RQID [facility] Last Admin: 03/07/17 07:38 Dose: 3 ml Alprazolam (Xanax) 1 mg PO HS [facility] Last Admin: 03/06/17 22:04 Dose: 1 mg Amiodarone HCl (Cordarone) 200 mg PO BID [facility] Last Admin: 03/06/17 18:29 Dose: 200 mg Amlodipine Besylate (Norvasc) 10 mg PO DAILY [facility] Last Admin: 03/06/17 11:26 Dose: 10 mg Aspirin (Ecotrin) 81 mg PO DAILY [facility] Last Admin: 03/06/17 11:26 Dose: 81 mg Carvedilol (Coreg) 25 mg PO BID [facility] Last Admin: 03/06/17 18:29 Dose: 25 mg Epoetin Tom (Procrit) 3,000 unit IV TTS [facility] Last Admin: 03/07/17 10:55 Dose: 3,000 unit Hydralazine HCl (Apresoline) 50 mg PO Q8H [facility] Last Admin: 03/07/17 06:40 Dose: 50 mg Hydromorphone HCl (Dilaudid) 0.5 mg IVP Q6H PRN PRN Reason: Pain, moderate (4-7) Heparin Sodium/Sodium Chloride (Heparin 75820 Units/250ml 1/2 Normal Saline) 25 ,000 units in 250 mls @ 8.347 mls/hr IV .Q24H PRN; Protocol; 14 UNITS/KG/HR PRN Reason: PROTOCOL Last Admin: 03/06/17 11:34 Dose: 14 units/kg/hr, 8.347 mls/hr Insulin Detemir (Levemir) 14 unit SC HS [facility] Last Admin: 03/06/17 22:01 Dose: 14 unit Insulin Human Regular (Novolin R) 0 unit SC ACHS [facility] PRN Reason: Protocol Last Admin: 03/07/17 08:36 Dose: 2 unit Isosorbide Mononitrate (Imdur) 60 mg PO DAILY [facility] Last Admin: 03/06/17 11:26 Dose: 60 mg Sertraline HCl (Zoloft) 50 mg PO DAILY [facility] Warfarin Sodium (Coumadin) 3 mg PO 1800 [facility] Stop: 03/07/17 18:01 - Labs Labs: 03/05/17 08:10 03/05/17 08:10 PT 12.6 SECONDS (9.7-12.2) H 03/07/17 07:02 INR 1.1 03/07/17 07:02 APTT 54 SECONDS (21-34) H D 03/07/17 07:02 - Respiratory Exam Additional comments: Lungs clear - Cardiovascular Exam Cardiovascular Exam: REGULAR RHYTHM - Extremities Exam Additional comments: B/L BKA Assessment and Plan - Assessment and Plan (Free Text) Assessment: ESRD on maitenance HD CAD/CABG IDDM HTN Plan: Continue HD HD per schedule BP on low side for this Pt. UF 2.8 today Tolerating well
[2017-03-07] MEDS: HYDROmorphone 0.5 mg/0.5 ml ISec IVP PRN ×2 (11:49→18:24)
[2017-03-07] MEDS: Heparin25000 units/250ml 1/2NS 25,000 UNITS/250 ML BAG IV PRN (13:33)
--- NOTE | 2017-03-07 16:44 | CP.PCM.PN ---
Subjective - Date & Time of Evaluation Date of Evaluation: 03/07/17 Time of Evaluation: 16:45 - Subjective Subjective: Alert, awake, stable condition. Objective - Vital Signs/Intake and Output Vital Signs (last 24 hours): Temp Pulse Resp BP Pulse Ox 98.6 F 71 20 125/58 L 100 03/07/17 16:00 03/07/17 16:00 03/07/17 16:00 03/07/17 16:00 03/07/17 16:00 Intake and Output: 03/07/17 03/07/17 06:59 18:59 Intake Total 306.4 250 Balance 306.4 250 - Medications Medications: Current Medications Albuterol/Ipratropium (Duoneb 3 Mg/0.5 Mg (3 Ml) Ud) 3 ml INH RQID [facility] Last Admin: 03/07/17 16:22 Dose: 3 ml Alprazolam (Xanax) 1 mg PO HS [facility] Last Admin: 03/06/17 22:04 Dose: 1 mg Amiodarone HCl (Cordarone) 200 mg PO BID [facility] Last Admin: 03/07/17 13:35 Dose: Not Given Amlodipine Besylate (Norvasc) 10 mg PO DAILY [facility] Last Admin: 03/07/17 13:36 Dose: Not Given Aspirin (Ecotrin) 81 mg PO DAILY [facility] Last Admin: 03/07/17 13:58 Dose: 81 mg Carvedilol (Coreg) 25 mg PO BID [facility] Last Admin: 03/07/17 13:35 Dose: Not Given Epoetin Tom (Procrit) 3,000 unit IV TTS [facility] Last Admin: 03/07/17 10:55 Dose: 3,000 unit Hydralazine HCl (Apresoline) 50 mg PO Q8H [facility] Last Admin: 03/07/17 15:14 Dose: Not Given Hydromorphone HCl (Dilaudid) 0.5 mg IVP Q6H PRN PRN Reason: Pain, moderate (4-7) Last Admin: 03/07/17 11:49 Dose: 0.5 mg Insulin Detemir (Levemir) 14 unit SC HS [facility] Last Admin: 03/06/17 22:01 Dose: 14 unit Insulin Human Regular (Novolin R) 0 unit SC ACHS [facility] PRN Reason: Protocol Last Admin: 03/07/17 13:59 Dose: 3 unit Isosorbide Mononitrate (Imdur) 60 mg PO DAILY [facility] Last Admin: 03/07/17 13:35 Dose: Not Given Sertraline HCl (Zoloft) 50 mg PO DAILY [facility] Last Admin: 03/07/17 13:59 Dose: 50 mg - Labs Labs: 03/05/17 08:10 03/05/17 08:10 PT 12.6 SECONDS (9.7-12.2) H 03/07/17 07:02 INR 1.1 03/07/17 07:02 APTT 54 SECONDS (21-34) H D 03/07/17 07:02 Assessment and Plan - Assessment and Plan (Free Text) Assessment: Patient is notified with stool occult blood positive today. Awake, alert, clinically stable. Discontinued heparin drip and coumadin, patient is not a candidate for anticoagulation due to high risk of bleeding. Will follow up cbc in am. D/W DR Li. Monitor closely for any further bleeding.
--- NOTE | 2017-03-07 17:35 | CP.PCM.PN ---
Subjective - Date & Time of Evaluation Date of Evaluation: 03/07/17 Time of Evaluation: 17:33 - Subjective Subjective: Patient seen in his room and had and episode of hypotension earlier after dialysis. Slept better last night but still meds seeking jeff with narcotics pain meds.His dose of Dilaudid prn was lowered due to hypotension and pt is also on Zoloft and Xanax. MSE- fairly developed male, seen in his room, sleepy but arouasble, O x3. mood is anxious, affect is reactive. speech is spontaneous. TP- coherent -TC- no si or hi, no psychosis. Attention and Memory limited. Insight and Judgment limited. Fair impulse control Objective - Vital Signs/Intake and Output Vital Signs (last 24 hours): Temp Pulse Resp BP Pulse Ox 98.6 F 71 20 125/58 L 100 03/07/17 16:00 03/07/17 16:00 03/07/17 16:00 03/07/17 16:00 03/07/17 16:00 Intake and Output: 03/07/17 03/07/17 06:59 18:59 Intake Total 306.4 250 Balance 306.4 250 - Medications Medications: Current Medications Albuterol/Ipratropium (Duoneb 3 Mg/0.5 Mg (3 Ml) Ud) 3 ml INH RQID [facility] Last Admin: 03/07/17 16:22 Dose: 3 ml Alprazolam (Xanax) 1 mg PO HS [facility] Last Admin: 03/06/17 22:04 Dose: 1 mg Amiodarone HCl (Cordarone) 200 mg PO BID [facility] Last Admin: 03/07/17 13:35 Dose: Not Given Amlodipine Besylate (Norvasc) 10 mg PO DAILY [facility] Last Admin: 03/07/17 13:36 Dose: Not Given Aspirin (Ecotrin) 81 mg PO DAILY [facility] Last Admin: 03/07/17 13:58 Dose: 81 mg Carvedilol (Coreg) 25 mg PO BID [facility] Last Admin: 03/07/17 13:35 Dose: Not Given Epoetin Tom (Procrit) 3,000 unit IV TTS [facility] Last Admin: 03/07/17 10:55 Dose: 3,000 unit Hydralazine HCl (Apresoline) 50 mg PO Q8H [facility] Last Admin: 03/07/17 15:14 Dose: Not Given Hydromorphone HCl (Dilaudid) 0.5 mg IVP Q6H PRN PRN Reason: Pain, moderate (4-7) Last Admin: 03/07/17 11:49 Dose: 0.5 mg Insulin Detemir (Levemir) 14 unit SC HS [facility] Last Admin: 03/06/17 22:01 Dose: 14 unit Insulin Human Regular (Novolin R) 0 unit SC ACHS [facility] PRN Reason: Protocol Last Admin: 03/07/17 13:59 Dose: 3 unit Isosorbide Mononitrate (Imdur) 60 mg PO DAILY [facility] Last Admin: 03/07/17 13:35 Dose: Not Given Sertraline HCl (Zoloft) 50 mg PO DAILY [facility] Last Admin: 03/07/17 13:59 Dose: 50 mg - Labs Labs: 03/05/17 08:10 03/05/17 08:10 PT 12.6 SECONDS (9.7-12.2) H 03/07/17 07:02 INR 1.1 03/07/17 07:02 APTT 54 SECONDS (21-34) H D 03/07/17 07:02 - Constitutional Appears: No Acute Distress, Chronically Ill - Head Exam Head Exam: NORMOCEPHALIC - Eye Exam Additional comments: legally blind - ENT Exam ENT Exam: Normal Exam - Neck Exam Neck Exam: Full ROM - Respiratory Exam Additional comments: no dyspnea - Cardiovascular Exam Additional comments: no chest pain - GI/Abdominal Exam Additional comments: eats well - Exam Additional comments: no dysuria - Extremities Exam Additional comments: pt is bilateral amputee - Neurological Exam Neurological Exam: Alert, Awake, Oriented x3 - Psychiatric Exam Psychiatric exam: Depressed, Normal Affect - Skin Skin Exam: Normal Color Assessment and Plan - Assessment and Plan (Free Text) Assessment: hx of depression, delirium, ESRD on HD, Atrial flutter, DM, bilateral amputee Plan: Continue present doses of Zoloft and Xanax as ordered. Continue pain meds as ordered as well as dialysis.
--- NOTE | 2017-03-07 17:42 | CP.PCM.PN ---
Subjective - Date & Time of Evaluation Date of Evaluation: 03/07/17 Time of Evaluation: 17:39 - Subjective Subjective: pt feels beter ocasionaly abd pain stool ocult posive we have to stop heparin and coumadin and asa Objective - Vital Signs/Intake and Output Vital Signs (last 24 hours): Temp Pulse Resp BP Pulse Ox 98.6 F 71 20 125/58 L 100 03/07/17 16:00 03/07/17 16:00 03/07/17 16:00 03/07/17 16:00 03/07/17 16:00 Intake and Output: 03/07/17 03/07/17 06:59 18:59 Intake Total 306.4 250 Balance 306.4 250 - Medications Medications: Current Medications Albuterol/Ipratropium (Duoneb 3 Mg/0.5 Mg (3 Ml) Ud) 3 ml INH RQID [facility] Last Admin: 03/07/17 16:22 Dose: 3 ml Alprazolam (Xanax) 1 mg PO HS [facility] Last Admin: 03/06/17 22:04 Dose: 1 mg Amiodarone HCl (Cordarone) 200 mg PO BID [facility] Last Admin: 03/07/17 13:35 Dose: Not Given Amlodipine Besylate (Norvasc) 10 mg PO DAILY [facility] Last Admin: 03/07/17 13:36 Dose: Not Given Aspirin (Ecotrin) 81 mg PO DAILY [facility] Last Admin: 03/07/17 13:58 Dose: 81 mg Carvedilol (Coreg) 25 mg PO BID [facility] Last Admin: 03/07/17 13:35 Dose: Not Given Epoetin Tom (Procrit) 3,000 unit IV TTS [facility] Last Admin: 03/07/17 10:55 Dose: 3,000 unit Hydralazine HCl (Apresoline) 50 mg PO Q8H [facility] Last Admin: 03/07/17 15:14 Dose: Not Given Hydromorphone HCl (Dilaudid) 0.5 mg IVP Q6H PRN PRN Reason: Pain, moderate (4-7) Last Admin: 03/07/17 11:49 Dose: 0.5 mg Insulin Detemir (Levemir) 14 unit SC HS [facility] Last Admin: 03/06/17 22:01 Dose: 14 unit Insulin Human Regular (Novolin R) 0 unit SC ACHS [facility] PRN Reason: Protocol Last Admin: 03/07/17 13:59 Dose: 3 unit Isosorbide Mononitrate (Imdur) 60 mg PO DAILY [facility] Last Admin: 03/07/17 13:35 Dose: Not Given Sertraline HCl (Zoloft) 50 mg PO DAILY [facility] Last Admin: 03/07/17 13:59 Dose: 50 mg - Labs Labs: 03/05/17 08:10 03/05/17 08:10 PT 12.6 SECONDS (9.7-12.2) H 03/07/17 07:02 INR 1.1 03/07/17 07:02 APTT 54 SECONDS (21-34) H D 03/07/17 07:02 - Constitutional Appears: Non-toxic - Head Exam Head Exam: NORMAL INSPECTION - Eye Exam Eye Exam: Conjunctival injection - ENT Exam ENT Exam: Mucous Membranes Moist - Neck Exam Neck Exam: Full ROM - Respiratory Exam Respiratory Exam: NORMAL BREATHING PATTERN - Cardiovascular Exam Cardiovascular Exam: REGULAR RHYTHM - GI/Abdominal Exam GI & Abdominal Exam: Tenderness - Rectal Exam Rectal Exam: NORMAL INSPECTION - Back Exam Back Exam: NORMAL INSPECTION - Neurological Exam Neurological Exam: Alert, Oriented x3 - Psychiatric Exam Psychiatric exam: Normal Affect - Skin Skin Exam: Pallor Assessment and Plan - Assessment and Plan (Free Text) Assessment: uncontroled gi bleeding esrf s/p at fluter Plan: repeate lab inc insulin
[2017-03-07] MEDS: Insulin Detemir 100 units/ml Vial (Levemir) SC SCH (21:51)
[2017-03-08] MEDS: HYDROmorphone 0.5 mg/0.5 ml ISec IVP PRN ×4 (02:45→20:35)
[2017-03-08 07:32] LABS: BASO # 0.1 K/uL (0.0-0.2); BASO % 0.6 % (0.0-2.0); EOS # 0.4 K/uL (0.0-0.7); LYMPH # 2.4 K/uL (1.0-4.3); LYMPH % 19.7 % (20.0-40.0); MEAN CELL VOLUME 88.4 fL (80.0-94.0); RED CELL DISTRIBUTION WIDTH 18.3 % (11.5-14.5)
[2017-03-08 08:23] LABS: CALCIUM 9.3 mg/dl (8.6-10.4)
[2017-03-08] MEDS: Albuterol-Ipratrop 3 mg / 0.5 (3 ml) UD INH SCH ×4 (08:27→20:01)
[2017-03-08 08:29] LABS: EOS % 3.6 % (0.0-4.0); MEAN CORPUSCULAR HEMOGLOBIN 26.7 pg (27.0-31.0); MEAN CORPUSCULAR HGB CONC 30.2 g/dL (33.0-37.0); MEAN PLATELET VOLUME 8.8 fL (7.2-11.7); MONO # 0.9 K/uL (0.0-0.8); MONO % 7.3 % (0.0-10.0); NEUT # 8.3 K/uL (1.8-7.0); NEUT % 68.8 % (50.0-75.0); RBC 4.24 Mil/uL (4.40-5.90); WHITE BLOOD COUNT 12.1 K/uL (4.8-10.8)
[2017-03-08 08:30] LABS: HEMOGLOBIN 11.3 g/dL (12.0-18.0)
[2017-03-08] MEDS: (Novolin R) Insulin Human Regular 100 units/ml vial SC SCH ×4 (08:30→22:22)
--- NOTE | 2017-03-08 10:49 | CP.PCM.PN ---
Subjective - Date & Time of Evaluation Date of Evaluation: 03/08/17 Time of Evaluation: 10:30 - Subjective Subjective: Resting in bed. Appears comfortable No sob noted Objective - Vital Signs/Intake and Output Vital Signs (last 24 hours): Temp Pulse Resp BP Pulse Ox 98.1 F 66 17 152/74 H 100 03/08/17 07:30 03/08/17 07:30 03/08/17 07:30 03/08/17 09:11 03/08/17 07:30 - Medications Medications: Current Medications Albuterol/Ipratropium (Duoneb 3 Mg/0.5 Mg (3 Ml) Ud) 3 ml INH RQID [facility] Last Admin: 03/08/17 08:27 Dose: Not Given Alprazolam (Xanax) 1 mg PO HS [facility] Last Admin: 03/07/17 21:51 Dose: 1 mg Amiodarone HCl (Cordarone) 200 mg PO BID [facility] Last Admin: 03/08/17 09:11 Dose: 200 mg Amlodipine Besylate (Norvasc) 10 mg PO DAILY [facility] Last Admin: 03/08/17 09:11 Dose: 10 mg Aspirin (Ecotrin) 81 mg PO DAILY [facility] Last Admin: 03/07/17 13:58 Dose: 81 mg Carvedilol (Coreg) 25 mg PO BID [facility] Last Admin: 03/08/17 09:11 Dose: 25 mg Epoetin Tom (Procrit) 3,000 unit IV TTS [facility] Last Admin: 03/07/17 10:55 Dose: 3,000 unit Hydralazine HCl (Apresoline) 50 mg PO Q8H [facility] Last Admin: 03/08/17 06:08 Dose: 50 mg Hydromorphone HCl (Dilaudid) 0.5 mg IVP Q6H PRN PRN Reason: Pain, moderate (4-7) Last Admin: 03/08/17 08:46 Dose: 0.5 mg Insulin Detemir (Levemir) 14 unit SC HS [facility] Last Admin: 03/07/17 21:51 Dose: 14 unit Insulin Human Regular (Novolin R) 0 unit SC [facility] PRN Reason: Protocol Last Admin: 03/08/17 08:30 Dose: 6 unit Isosorbide Mononitrate (Imdur) 60 mg PO DAILY [facility] Last Admin: 03/08/17 09:11 Dose: 60 mg Sertraline HCl (Zoloft) 50 mg PO DAILY [facility] Last Admin: 03/08/17 09:12 Dose: 50 mg - Labs Labs: 03/08/17 07:05 03/08/17 07:05 PT 12.6 SECONDS (9.7-12.2) H 03/07/17 07:02 INR 1.1 03/07/17 07:02 APTT 38 SECONDS (21-34) H D 03/08/17 07:05 - Respiratory Exam Additional comments: Lungs clear - Cardiovascular Exam Cardiovascular Exam: REGULAR RHYTHM - Extremities Exam Additional comments: B/L BKA Assessment and Plan - Assessment and Plan (Free Text) Assessment: ESRD on HD HTN CAG/CABG IDDM Plan: Stable on dialysis . Continue HD per schedule BP controlled Labs stable
--- NOTE | 2017-03-08 11:42 | CP.PCM.PN ---
Subjective - Date & Time of Evaluation Date of Evaluation: 03/08/17 Time of Evaluation: 11:39 - Subjective Subjective: pt c/o pain allover hisbody Objective - Vital Signs/Intake and Output Vital Signs (last 24 hours): Temp Pulse Resp BP Pulse Ox 98.1 F 66 17 152/74 H 100 03/08/17 07:30 03/08/17 07:30 03/08/17 07:30 03/08/17 09:11 03/08/17 07:30 - Medications Medications: Current Medications Albuterol/Ipratropium (Duoneb 3 Mg/0.5 Mg (3 Ml) Ud) 3 ml INH RQID [facility] Last Admin: 03/08/17 08:27 Dose: Not Given Alprazolam (Xanax) 1 mg PO HS [facility] Last Admin: 03/07/17 21:51 Dose: 1 mg Amiodarone HCl (Cordarone) 200 mg PO BID [facility] Last Admin: 03/08/17 09:11 Dose: 200 mg Amlodipine Besylate (Norvasc) 10 mg PO DAILY [facility] Last Admin: 03/08/17 09:11 Dose: 10 mg Aspirin (Ecotrin) 81 mg PO DAILY [facility] Last Admin: 03/07/17 13:58 Dose: 81 mg Carvedilol (Coreg) 25 mg PO BID [facility] Last Admin: 03/08/17 09:11 Dose: 25 mg Epoetin Tom (Procrit) 3,000 unit IV TTS [facility] Last Admin: 03/07/17 10:55 Dose: 3,000 unit Hydralazine HCl (Apresoline) 50 mg PO Q8H [facility] Last Admin: 03/08/17 06:08 Dose: 50 mg Hydromorphone HCl (Dilaudid) 0.5 mg IVP Q6H PRN PRN Reason: Pain, moderate (4-7) Last Admin: 03/08/17 08:46 Dose: 0.5 mg Insulin Detemir (Levemir) 14 unit SC HS [facility] Last Admin: 03/07/17 21:51 Dose: 14 unit Insulin Human Regular (Novolin R) 0 unit SC [facility] PRN Reason: Protocol Last Admin: 03/08/17 08:30 Dose: 6 unit Isosorbide Mononitrate (Imdur) 60 mg PO DAILY [facility] Last Admin: 03/08/17 09:11 Dose: 60 mg Sertraline HCl (Zoloft) 50 mg PO DAILY [facility] Last Admin: 03/08/17 09:12 Dose: 50 mg - Labs Labs: 03/08/17 07:05 03/08/17 07:05 PT 12.6 SECONDS (9.7-12.2) H 03/07/17 07:02 INR 1.1 03/07/17 07:02 APTT 38 SECONDS (21-34) H D 03/08/17 07:05 - Constitutional Appears: Non-toxic - Head Exam Head Exam: NORMAL INSPECTION - ENT Exam ENT Exam: Mucous Membranes Dry - Neck Exam Neck Exam: Normal Inspection - Respiratory Exam Respiratory Exam: Clear to Ausculation Bilateral - Cardiovascular Exam Cardiovascular Exam: REGULAR RHYTHM - GI/Abdominal Exam GI & Abdominal Exam: Normal Bowel Sounds - Rectal Exam Rectal Exam: NORMAL INSPECTION - Extremities Exam Additional comments: AKA - Back Exam Back Exam: NORMAL INSPECTION - Neurological Exam Neurological Exam: Oriented x3 - Psychiatric Exam Psychiatric exam: Normal Affect - Skin Skin Exam: Pallor - Additional Findings Additional findings: WBC HI Assessment and Plan - Assessment and Plan (Free Text) Assessment: LECOCYTOSIS GI BLEEDING ESRF HTN S/P AT FLUTER ANEAMIA Plan: GI CONSULT
--- NOTE | 2017-03-08 13:22 | CP.PCM.PN ---
Subjective - Date & Time of Evaluation Date of Evaluation: 03/08/17 Time of Evaluation: 13:19 - Subjective Subjective: Patient seen and still meds seeking but sleeping better and not agitated, Compliant with dialysis tx. MSE- fairly developed male, oriented x 3, legally blind, affect is reactive. mood is calm. speech is spontaneous. TP- coherent TC- no si or hi, no psychosis. still meds seeking. Attention and memory limited. Insight and judgment limited. Fair impulse control. Objective - Vital Signs/Intake and Output Vital Signs (last 24 hours): Temp Pulse Resp BP Pulse Ox 98.1 F 66 17 152/74 H 100 03/08/17 07:30 03/08/17 07:30 03/08/17 07:30 03/08/17 09:11 03/08/17 07:30 - Medications Medications: Current Medications Albuterol/Ipratropium (Duoneb 3 Mg/0.5 Mg (3 Ml) Ud) 3 ml INH RQID [facility] Last Admin: 03/08/17 08:27 Dose: Not Given Alprazolam (Xanax) 1 mg PO HS [facility] Last Admin: 03/07/17 21:51 Dose: 1 mg Amiodarone HCl (Cordarone) 200 mg PO BID [facility] Last Admin: 03/08/17 09:11 Dose: 200 mg Amlodipine Besylate (Norvasc) 10 mg PO DAILY [facility] Last Admin: 03/08/17 09:11 Dose: 10 mg Aspirin (Ecotrin) 81 mg PO DAILY [facility] Last Admin: 03/07/17 13:58 Dose: 81 mg Carvedilol (Coreg) 25 mg PO BID [facility] Last Admin: 03/08/17 09:11 Dose: 25 mg Epoetin Tom (Procrit) 3,000 unit IV TTS [facility] Last Admin: 03/07/17 10:55 Dose: 3,000 unit Hydralazine HCl (Apresoline) 50 mg PO Q8H [facility] Last Admin: 03/08/17 06:08 Dose: 50 mg Hydromorphone HCl (Dilaudid) 0.5 mg IVP Q6H PRN PRN Reason: Pain, moderate (4-7) Last Admin: 03/08/17 08:46 Dose: 0.5 mg Insulin Detemir (Levemir) 14 unit SC [facility] Last Admin: 03/07/17 21:51 Dose: 14 unit Insulin Human Regular (Novolin R) 0 unit SC [facility] PRN Reason: Protocol Last Admin: 03/08/17 12:32 Dose: 3 unit Isosorbide Mononitrate (Imdur) 60 mg PO DAILY [facility] Last Admin: 03/08/17 09:11 Dose: 60 mg Sertraline HCl (Zoloft) 50 mg PO DAILY [facility] Last Admin: 03/08/17 09:12 Dose: 50 mg - Labs Labs: 03/08/17 07:05 03/08/17 07:05 PT 12.6 SECONDS (9.7-12.2) H 03/07/17 07:02 INR 1.1 03/07/17 07:02 APTT 38 SECONDS (21-34) H D 03/08/17 07:05 - Constitutional Appears: Well, No Acute Distress - Head Exam Head Exam: NORMOCEPHALIC - Eye Exam Additional comments: legally blind - ENT Exam ENT Exam: Normal Exam - Neck Exam Neck Exam: Full ROM - Respiratory Exam Respiratory Exam: NORMAL BREATHING PATTERN - Cardiovascular Exam Additional comments: no chest pain - GI/Abdominal Exam Additional comments: eats well - Extremities Exam Additional comments: has chronic neuropathic pain, a bilateral amputee - Psychiatric Exam Psychiatric exam: Depressed, Normal Affect - Skin Skin Exam: Normal Color Assessment and Plan - Assessment and Plan (Free Text) Assessment: Major depression Mood disorder hx of delirium ESRD on HD, DM bilateral amputee Plan: Continue present psych meds. No need to increase pain meds as pt has bouts of hypotension and his pain meds will cross react with his psych meds causing hypotension as side effect. Continue dialysis as ordered.
[2017-03-08] MEDS: Insulin Detemir 100 units/ml Vial (Levemir) SC SCH (22:20)
[2017-03-09] MEDS: HYDROmorphone 0.5 mg/0.5 ml ISec IVP PRN ×4 (02:17→19:27)
[2017-03-09] MEDS: Albuterol-Ipratrop 3 mg / 0.5 (3 ml) UD INH SCH (08:09)
[2017-03-09] MEDS: (Novolin R) Insulin Human Regular 100 units/ml vial SC SCH ×4 (08:35→22:40)
[2017-03-09] MEDS: Epoetin Alfa Dialysis 3000 UNIT/ML Inj IV SCH (11:16)
--- NOTE | 2017-03-09 11:48 | CP.PCM.PN ---
Subjective - Date & Time of Evaluation Date of Evaluation: 03/09/17 Time of Evaluation: 11:46 - Subjective Subjective: CHEST PAIN AGAIN TODAY ABD PAIN HYPOTENSIVE DURING DIALYSIS TODAY Objective - Vital Signs/Intake and Output Vital Signs (last 24 hours): Temp Pulse Resp BP Pulse Ox 98.1 F 70 18 102/40 L 100 03/09/17 09:25 03/09/17 09:20 03/09/17 09:25 03/09/17 11:25 03/09/17 09:25 Intake and Output: 03/09/17 03/09/17 06:59 18:59 Intake Total 240 Balance 240 - Medications Medications: Current Medications Alprazolam (Xanax) 1 mg PO HS [facility] Last Admin: 03/08/17 22:19 Dose: 1 mg Amiodarone HCl (Cordarone) 200 mg PO BID [facility] Last Admin: 03/09/17 10:10 Dose: Not Given Amlodipine Besylate (Norvasc) 10 mg PO DAILY [facility] Last Admin: 03/09/17 10:10 Dose: Not Given Aspirin (Ecotrin) 81 mg PO DAILY [facility] Last Admin: 03/07/17 13:58 Dose: 81 mg Carvedilol (Coreg) 25 mg PO BID [facility] Last Admin: 03/09/17 10:10 Dose: Not Given Epoetin Tom (Procrit) 3,000 unit IV TTS [facility] Last Admin: 03/09/17 11:16 Dose: 3,000 unit Hydralazine HCl (Apresoline) 50 mg PO Q8H [facility] Last Admin: 03/09/17 05:44 Dose: Not Given Hydromorphone HCl (Dilaudid) 0.5 mg IVP Q6H PRN PRN Reason: Pain, moderate (4-7) Last Admin: 03/09/17 08:36 Dose: 0.5 mg Insulin Detemir (Levemir) 14 unit SC HS [facility] Last Admin: 03/08/17 22:20 Dose: 14 unit Insulin Human Regular (Novolin R) 0 unit SC [facility] PRN Reason: Protocol Last Admin: 03/09/17 08:35 Dose: 2 unit Isosorbide Mononitrate (Imdur) 60 mg PO DAILY [facility] Last Admin: 03/09/17 10:10 Dose: Not Given Sertraline HCl (Zoloft) 50 mg PO DAILY [facility] Last Admin: 03/09/17 10:11 Dose: Not Given - Labs Labs: 03/08/17 07:05 03/08/17 07:05 PT 12.6 SECONDS (9.7-12.2) H 03/07/17 07:02 INR 1.1 03/07/17 07:02 APTT 38 SECONDS (21-34) H D 03/08/17 07:05 - Constitutional Appears: Non-toxic - Head Exam Head Exam: NORMAL INSPECTION - Eye Exam Eye Exam: Conjunctival injection - ENT Exam ENT Exam: Mucous Membranes Moist - Neck Exam Neck Exam: Full ROM - Respiratory Exam Respiratory Exam: Decreased Breath Sounds - Cardiovascular Exam Cardiovascular Exam: REGULAR RHYTHM - GI/Abdominal Exam GI & Abdominal Exam: Tenderness, Normal Bowel Sounds - Rectal Exam Rectal Exam: NORMAL INSPECTION - Back Exam Back Exam: NORMAL INSPECTION - Neurological Exam Neurological Exam: Awake, Oriented x3 - Psychiatric Exam Psychiatric exam: Depressed - Skin Skin Exam: Pallor Assessment and Plan - Assessment and Plan (Free Text) Assessment: CAD GI BLEEGING ABD PAIN DMID ESRF Plan: PER ORDERS
--- NOTE | 2017-03-09 13:38 | CP.PCM.PN ---
Subjective - Date & Time of Evaluation Date of Evaluation: 03/09/17 Time of Evaluation: 01:25 - Subjective Subjective: No acute distress noted Objective - Vital Signs/Intake and Output Vital Signs (last 24 hours): Temp Pulse Resp BP Pulse Ox 97.8 F 70 18 87/55 L 100 03/09/17 12:25 03/09/17 09:20 03/09/17 12:25 03/09/17 12:25 03/09/17 12:25 Intake and Output: 03/09/17 03/09/17 06:59 18:59 Intake Total 240 Balance 240 - Medications Medications: Current Medications Alprazolam (Xanax) 1 mg PO HS [facility] Last Admin: 03/08/17 22:19 Dose: 1 mg Amiodarone HCl (Cordarone) 200 mg PO BID [facility] Last Admin: 03/09/17 10:10 Dose: Not Given Amlodipine Besylate (Norvasc) 10 mg PO DAILY [facility] Last Admin: 03/09/17 10:10 Dose: Not Given Aspirin (Ecotrin) 81 mg PO DAILY [facility] Last Admin: 03/07/17 13:58 Dose: 81 mg Carvedilol (Coreg) 25 mg PO BID [facility] Last Admin: 03/09/17 10:10 Dose: Not Given Epoetin Tom (Procrit) 3,000 unit IV TTS [facility] Last Admin: 03/09/17 11:16 Dose: 3,000 unit Hydralazine HCl (Apresoline) 50 mg PO Q8H [facility] Last Admin: 03/09/17 05:44 Dose: Not Given Hydromorphone HCl (Dilaudid) 0.5 mg IVP Q6H PRN PRN Reason: Pain, moderate (4-7) Last Admin: 03/09/17 08:36 Dose: 0.5 mg Insulin Detemir (Levemir) 14 unit SC HS [facility] Last Admin: 03/08/17 22:20 Dose: 14 unit Insulin Human Regular (Novolin R) 0 unit SC ACHS [facility] PRN Reason: Protocol Last Admin: 03/09/17 08:35 Dose: 2 unit Isosorbide Mononitrate (Imdur) 60 mg PO DAILY [facility] Last Admin: 03/09/17 10:10 Dose: Not Given Sertraline HCl (Zoloft) 50 mg PO DAILY [facility] Last Admin: 03/09/17 10:11 Dose: Not Given - Labs Labs: 03/08/17 07:05 03/08/17 07:05 PT 12.6 SECONDS (9.7-12.2) H 03/07/17 07:02 INR 1.1 03/07/17 07:02 APTT 38 SECONDS (21-34) H D 03/08/17 07:05 - Respiratory Exam Respiratory Exam: NORMAL BREATHING PATTERN - Cardiovascular Exam Cardiovascular Exam: REGULAR RHYTHM - Extremities Exam Additional comments: B/L BKA Assessment and Plan - Assessment and Plan (Free Text) Assessment: ESRD on HD CAD IDDM OVD Plan: Blood pressures were low during dialysis today 2 Kg was removed Volume controlled at this time
--- NOTE | 2017-03-09 15:43 | CP.PCM.PN ---
Subjective - Date & Time of Evaluation Date of Evaluation: 03/09/17 Time of Evaluation: 15:39 - Subjective Subjective: Patient seen in his room. Sleepy when seen and refusing to eat his lunch. " I am not hungry". Still meds seeking. Sleeping better at night. Still meds seeking but not asking for increase of dose of Dilaudid prn a she is having episodes of hypotension after dialysis tx. MSE- fairly developed male, sleepy but arousable, " I want to sleep". oriented x 3. Speech is spontaneous. Affect is reactive. Mood is chronically depressed. TP- coherent TC- no si or hi, no psychosis. Less meds seeking. Attention and memory limited. Insight and Judgment limited. Impulse control fair. Objective - Vital Signs/Intake and Output Vital Signs (last 24 hours): Temp Pulse Resp BP Pulse Ox 98.4 F 74 18 151/79 H 100 03/09/17 15:21 03/09/17 15:21 03/09/17 15:21 03/09/17 15:21 03/09/17 15:21 Intake and Output: 03/09/17 03/09/17 06:59 18:59 Intake Total 240 Balance 240 - Medications Medications: Current Medications Alprazolam (Xanax) 1 mg PO HS [facility] Last Admin: 03/08/17 22:19 Dose: 1 mg Amiodarone HCl (Cordarone) 200 mg PO BID [facility] Last Admin: 03/09/17 10:10 Dose: Not Given Amlodipine Besylate (Norvasc) 10 mg PO DAILY [facility] Last Admin: 03/09/17 10:10 Dose: Not Given Aspirin (Ecotrin) 81 mg PO DAILY [facility] Last Admin: 03/07/17 13:58 Dose: 81 mg Carvedilol (Coreg) 25 mg PO BID [facility] Last Admin: 03/09/17 10:10 Dose: Not Given Epoetin Tom (Procrit) 3,000 unit IV TTS [facility] Last Admin: 03/09/17 11:16 Dose: 3,000 unit Hydralazine HCl (Apresoline) 50 mg PO Q8H [facility] Last Admin: 03/09/17 13:48 Dose: 50 mg Hydromorphone HCl (Dilaudid) 0.5 mg IVP Q6H PRN PRN Reason: Pain, moderate (4-7) Last Admin: 03/09/17 13:48 Dose: 0.5 mg Insulin Detemir (Levemir) 14 unit SC HS [facility] Last Admin: 03/08/17 22:20 Dose: 14 unit Insulin Human Regular (Novolin R) 0 unit SC [facility] PRN Reason: Protocol Last Admin: 03/09/17 13:00 Dose: Not Given Isosorbide Mononitrate (Imdur) 60 mg PO DAILY [facility] Last Admin: 03/09/17 10:10 Dose: Not Given Sertraline HCl (Zoloft) 50 mg PO DAILY [facility] Last Admin: 03/09/17 10:11 Dose: Not Given - Labs Labs: 03/08/17 07:05 03/08/17 07:05 PT 12.6 SECONDS (9.7-12.2) H 03/07/17 07:02 INR 1.1 03/07/17 07:02 APTT 38 SECONDS (21-34) H D 03/08/17 07:05 - Constitutional Appears: No Acute Distress, Chronically Ill - Eye Exam Additional comments: legally blind - ENT Exam ENT Exam: Normal Exam - Neck Exam Neck Exam: Full ROM - Respiratory Exam Respiratory Exam: NORMAL BREATHING PATTERN - Cardiovascular Exam Additional comments: no chest pain - GI/Abdominal Exam Additional comments: no abdominal pain, appetite is variable - Exam Additional comments: no dysuria - Extremities Exam Additional comments: pt is a bilateral amputee, has chronic neuropathic apin sec to DM - Neurological Exam Neurological Exam: Oriented x3 - Skin Skin Exam: Normal Color Assessment and Plan - Assessment and Plan (Free Text) Assessment: Hx of depression, anxiety, delirium ESRD on HD, DM, PVD, bilateral amputee Opiate dependence( narcotic pain meds) Plan: Continue present psych meds and pain meds as well dialysis as ordered. Psych bowens, stable to go home once medically cleared.
[2017-03-09] MEDS: Insulin Detemir 100 units/ml Vial (Levemir) SC SCH (22:39)
[2017-03-10] MEDS: HYDROmorphone 0.5 mg/0.5 ml ISec IVP PRN ×4 (01:30→19:50)
[2017-03-10] MEDS: (Novolin R) Insulin Human Regular 100 units/ml vial SC SCH ×4 (08:00→22:13)
[2017-03-10 08:26] LABS: ALBUMIN 3.8 g/dL (3.5-5.0)
[2017-03-10 08:29] LABS: ALB/GLOB RATIO 0.9 (1.0-2.1)
[2017-03-10 08:30] LABS: CALCIUM 9.4 mg/dl (8.6-10.4)
[2017-03-10 08:32] LABS: PROTHROMBIN TIME 11.8 SECONDS (9.7-12.2)
[2017-03-10 08:56] LABS: HEMOGLOBIN 11.7 g/dL (12.0-18.0); MEAN CELL VOLUME 88.4 fL (80.0-94.0); MEAN CORPUSCULAR HEMOGLOBIN 26.8 pg (27.0-31.0); MEAN CORPUSCULAR HGB CONC 30.3 g/dL (33.0-37.0); MEAN PLATELET VOLUME 9.5 fL (7.2-11.7); RBC 4.37 Mil/uL (4.40-5.90); RED CELL DISTRIBUTION WIDTH 18.5 % (11.5-14.5)
[2017-03-10 09:31] LABS: BASO % 1.2 % (0.0-2.0); EOS % 6.1 % (0.0-4.0); LYMPH % 22.1 % (20.0-40.0); MONO % 7.8 % (0.0-10.0); NEUT % 62.8 % (50.0-75.0)
[2017-03-10 09:32] LABS: BASO # 0.2 K/uL (0.0-0.2); LYMPH # 3.5 K/uL (1.0-4.3); MONO # 1.3 K/uL (0.0-0.8)
--- NOTE | 2017-03-10 13:25 | CP.PCM.PN ---
Subjective - Date & Time of Evaluation Date of Evaluation: 03/10/17 Time of Evaluation: 16:00 - Subjective Subjective: Sitting up in bed & eating. Appears comfortable Objective - Vital Signs/Intake and Output Vital Signs (last 24 hours): Temp Pulse Resp BP Pulse Ox 98 F 55 L 18 136/82 100 03/10/17 05:45 03/10/17 06:30 03/10/17 05:45 03/10/17 10:39 03/10/17 05:45 - Medications Medications: Current Medications Alprazolam (Xanax) 1 mg PO HS [facility] Last Admin: 03/09/17 22:39 Dose: 1 mg Amiodarone HCl (Cordarone) 200 mg PO BID [facility] Last Admin: 03/10/17 11:34 Dose: Not Given Amlodipine Besylate (Norvasc) 10 mg PO DAILY [facility] Last Admin: 03/10/17 10:40 Dose: 10 mg Aspirin (Ecotrin) 81 mg PO DAILY [facility] Last Admin: 03/07/17 13:58 Dose: 81 mg Carvedilol (Coreg) 25 mg PO BID [facility] Last Admin: 03/10/17 10:39 Dose: 25 mg Epoetin Tom (Procrit) 3,000 unit IV TTS [facility] Last Admin: 03/09/17 11:16 Dose: 3,000 unit Hydralazine HCl (Apresoline) 50 mg PO Q8H [facility] Last Admin: 03/10/17 05:46 Dose: 50 mg Hydromorphone HCl (Dilaudid) 0.5 mg IVP Q6H PRN PRN Reason: Pain, moderate (4-7) Last Admin: 03/10/17 08:06 Dose: 0.5 mg Insulin Detemir (Levemir) 14 unit SC [facility] Last Admin: 03/09/17 22:39 Dose: 14 unit Insulin Human Regular (Novolin R) 0 unit SC [facility] PRN Reason: Protocol Last Admin: 03/10/17 08:00 Dose: Not Given Isosorbide Mononitrate (Imdur) 60 mg PO DAILY [facility] Last Admin: 03/10/17 10:39 Dose: 60 mg Sertraline HCl (Zoloft) 50 mg PO DAILY [facility] Last Admin: 03/10/17 10:39 Dose: 50 mg - Labs Labs: 03/10/17 08:05 03/10/17 08:05 PT 11.8 SECONDS (9.7-12.2) 03/10/17 08:05 INR 1.0 03/10/17 08:05 APTT 31 SECONDS (21-34) D 03/10/17 08:05 - Respiratory Exam Additional comments: Lungs clear - Cardiovascular Exam Cardiovascular Exam: REGULAR RHYTHM - Extremities Exam Additional comments: B/L BKA Assessment and Plan - Assessment and Plan (Free Text) Assessment: ESRD CAD HTN IDDM Plan: VS & labs are stable Continue HD TTS
--- NOTE | 2017-03-10 13:33 | CP.PCM.PN ---
Subjective - Date & Time of Evaluation Date of Evaluation: 03/10/17 Time of Evaluation: 13:31 - Subjective Subjective: c/o pain allover body has inc wbc Objective - Vital Signs/Intake and Output Vital Signs (last 24 hours): Temp Pulse Resp BP Pulse Ox 98 F 55 L 18 136/82 100 03/10/17 05:45 03/10/17 06:30 03/10/17 05:45 03/10/17 10:39 03/10/17 05:45 - Medications Medications: Current Medications Alprazolam (Xanax) 1 mg PO HS [facility] Last Admin: 03/09/17 22:39 Dose: 1 mg Amiodarone HCl (Cordarone) 200 mg PO BID [facility] Last Admin: 03/10/17 11:34 Dose: Not Given Amlodipine Besylate (Norvasc) 10 mg PO DAILY [facility] Last Admin: 03/10/17 10:40 Dose: 10 mg Aspirin (Ecotrin) 81 mg PO DAILY [facility] Last Admin: 03/07/17 13:58 Dose: 81 mg Carvedilol (Coreg) 25 mg PO BID [facility] Last Admin: 03/10/17 10:39 Dose: 25 mg Epoetin Tom (Procrit) 3,000 unit IV TTS [facility] Last Admin: 03/09/17 11:16 Dose: 3,000 unit Hydralazine HCl (Apresoline) 50 mg PO Q8H [facility] Last Admin: 03/10/17 05:46 Dose: 50 mg Hydromorphone HCl (Dilaudid) 0.5 mg IVP Q6H PRN PRN Reason: Pain, moderate (4-7) Last Admin: 03/10/17 08:06 Dose: 0.5 mg Insulin Detemir (Levemir) 14 unit SC [facility] Last Admin: 03/09/17 22:39 Dose: 14 unit Insulin Human Regular (Novolin R) 0 unit SC [facility] PRN Reason: Protocol Last Admin: 03/10/17 08:00 Dose: Not Given Isosorbide Mononitrate (Imdur) 60 mg PO DAILY [facility] Last Admin: 03/10/17 10:39 Dose: 60 mg Sertraline HCl (Zoloft) 50 mg PO DAILY [facility] Last Admin: 03/10/17 10:39 Dose: 50 mg - Labs Labs: 03/10/17 08:05 03/10/17 08:05 PT 11.8 SECONDS (9.7-12.2) 03/10/17 08:05 INR 1.0 03/10/17 08:05 APTT 31 SECONDS (21-34) D 03/10/17 08:05 - Constitutional Appears: Non-toxic - Head Exam Head Exam: NORMAL INSPECTION - Eye Exam Eye Exam: Conjunctival injection - ENT Exam ENT Exam: Normal Exam - Respiratory Exam Respiratory Exam: Clear to Ausculation Bilateral - Cardiovascular Exam Cardiovascular Exam: REGULAR RHYTHM - GI/Abdominal Exam GI & Abdominal Exam: Normal Bowel Sounds - Rectal Exam Rectal Exam: NORMAL INSPECTION - Back Exam Back Exam: CVA tenderness (L) - Psychiatric Exam Psychiatric exam: Depressed - Skin Skin Exam: Normal Color, Pallor Assessment and Plan - Assessment and Plan (Free Text) Assessment: lecocytosis r/o sepses gi bleeding aneamia esrf Plan: endo in am and as per orders
--- NOTE | 2017-03-10 18:08 | CP.PCM.PN ---
Subjective - Date & Time of Evaluation Date of Evaluation: 03/10/17 Time of Evaluation: 18:06 - Subjective Subjective: Patient seen today in his room with staff. Stilll meds seeking but redirectable. Patient is compliant with meds intake and care. Reluctant to go home. MSE- fairly developed male, alert and verbal, oriented x 3. Mood is calm, affect is reactive. speech is spontaneous. TP- coherent TC- no si o rhi, no psychosis, still meds seeking. Attention and memory fair. Insight and Judgment limited . Impulse control fair. Objective - Vital Signs/Intake and Output Vital Signs (last 24 hours): Temp Pulse Resp BP Pulse Ox 97.8 F 81 20 188/72 H 97 03/10/17 15:00 03/10/17 16:20 03/10/17 15:00 03/10/17 17:46 03/10/17 15:00 - Medications Medications: Current Medications Alprazolam (Xanax) 1 mg PO HS [facility] Last Admin: 03/09/17 22:39 Dose: 1 mg Amiodarone HCl (Cordarone) 200 mg PO BID [facility] Last Admin: 03/10/17 17:46 Dose: 200 mg Amlodipine Besylate (Norvasc) 10 mg PO DAILY [facility] Last Admin: 03/10/17 10:40 Dose: 10 mg Aspirin (Ecotrin) 81 mg PO DAILY [facility] Last Admin: 03/07/17 13:58 Dose: 81 mg Carvedilol (Coreg) 25 mg PO BID [facility] Last Admin: 03/10/17 17:46 Dose: 25 mg Epoetin Tom (Procrit) 3,000 unit IV TTS [facility] Last Admin: 03/09/17 11:16 Dose: 3,000 unit Hydromorphone HCl (Dilaudid) 0.5 mg IVP Q6H PRN PRN Reason: Pain, moderate (4-7) Last Admin: 03/10/17 13:54 Dose: 0.5 mg Insulin Detemir (Levemir) 14 unit SC [facility] Last Admin: 03/09/17 22:39 Dose: 14 unit Insulin Human Regular (Novolin R) 0 unit SC ACHS [facility] PRN Reason: Protocol Last Admin: 03/10/17 17:46 Dose: 4 unit Isosorbide Mononitrate (Imdur) 60 mg PO DAILY [facility] Last Admin: 03/10/17 10:39 Dose: 60 mg Sertraline HCl (Zoloft) 50 mg PO DAILY [facility] Last Admin: 03/10/17 10:39 Dose: 50 mg - Labs Labs: 03/10/17 08:05 03/10/17 08:05 PT 11.8 SECONDS (9.7-12.2) 03/10/17 08:05 INR 1.0 03/10/17 08:05 APTT 31 SECONDS (21-34) D 03/10/17 08:05 - Constitutional Appears: Well, No Acute Distress, Chronically Ill - Head Exam Head Exam: NORMOCEPHALIC - Eye Exam Additional comments: legally blind - ENT Exam ENT Exam: Normal Exam - Neck Exam Neck Exam: Full ROM - Respiratory Exam Respiratory Exam: NORMAL BREATHING PATTERN - Cardiovascular Exam Additional comments: no palpitations or chest pain - GI/Abdominal Exam Additional comments: appetite is variable, no abdominal pain, no nausea or vomiting - Exam Additional comments: no dysuria - Extremities Exam Additional comments: pt is a bilateral amputee, 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 Psych stable for discharge once medically cleared.
[2017-03-10 19:43] LABS: HEMOGLOBIN 11.5 g/dL (12.0-18.0); MEAN CELL VOLUME 88.3 fL (80.0-94.0); MEAN CORPUSCULAR HGB CONC 30.6 g/dL (33.0-37.0); MEAN PLATELET VOLUME 8.9 fL (7.2-11.7); RBC 4.25 Mil/uL (4.40-5.90); RED CELL DISTRIBUTION WIDTH 18.3 % (11.5-14.5); WHITE BLOOD COUNT 13.3 K/uL (4.8-10.8)
[2017-03-10] MEDS: Insulin Detemir 100 units/ml Vial (Levemir) SC SCH (22:14)
[2017-03-11] MEDS: HYDROmorphone 0.5 mg/0.5 ml ISec IVP PRN ×5 (02:01→21:39)
[2017-03-11] MEDS: (Novolin R) Insulin Human Regular 100 units/ml vial SC SCH ×4 (08:40→21:44)
--- NOTE | 2017-03-11 11:00 | CP.PCM.PN ---
Subjective - Date & Time of Evaluation Date of Evaluation: 03/11/17 Time of Evaluation: 10:30 - Subjective Subjective: Appears comfortable in bed Objective - Vital Signs/Intake and Output Vital Signs (last 24 hours): Temp Pulse Resp BP Pulse Ox 97.6 F 64 18 160/75 H 100 03/11/17 09:16 03/11/17 10:50 03/11/17 09:16 03/11/17 10:51 03/11/17 09:16 Intake and Output: 03/11/17 03/11/17 06:59 18:59 Intake Total 240 Balance 240 - Medications Medications: Current Medications Alprazolam (Xanax) 1 mg PO HS [facility] Last Admin: 03/10/17 22:12 Dose: 1 mg Amiodarone HCl (Cordarone) 200 mg PO BID [facility] Last Admin: 03/11/17 10:51 Dose: 200 mg Amlodipine Besylate (Norvasc) 10 mg PO DAILY [facility] Last Admin: 03/11/17 10:51 Dose: 10 mg Aspirin (Ecotrin) 81 mg PO DAILY [facility] Last Admin: 03/07/17 13:58 Dose: 81 mg Carvedilol (Coreg) 25 mg PO BID [facility] Last Admin: 03/11/17 10:51 Dose: 25 mg Hydromorphone HCl (Dilaudid) 0.5 mg IVP Q6H PRN PRN Reason: Pain, moderate (4-7) Last Admin: 03/11/17 08:15 Dose: 0.5 mg Insulin Detemir (Levemir) 14 unit SC [facility] Last Admin: 03/10/17 22:14 Dose: 14 unit Insulin Human Regular (Novolin R) 0 unit SC [facility] PRN Reason: Protocol Last Admin: 03/11/17 08:40 Dose: 4 unit Isosorbide Mononitrate (Imdur) 60 mg PO DAILY [facility] Last Admin: 03/11/17 10:51 Dose: 60 mg Sertraline HCl (Zoloft) 50 mg PO DAILY [facility] Last Admin: 03/11/17 10:51 Dose: 50 mg - Labs Labs: 03/10/17 19:28 03/10/17 08:05 PT 11.8 SECONDS (9.7-12.2) 03/10/17 08:05 INR 1.0 03/10/17 08:05 APTT 31 SECONDS (21-34) D 03/10/17 08:05 - Respiratory Exam Respiratory Exam: Clear to Ausculation Bilateral - Cardiovascular Exam Cardiovascular Exam: REGULAR RHYTHM - Extremities Exam Additional comments: B/L BKA Assessment and Plan - Assessment and Plan (Free Text) Assessment: ESRD on HD CAD HTN IDDM Plan: Stable on dialysis continue HD TTS Hb 11.6. Will hold Epogen
--- NOTE | 2017-03-11 12:54 | CARD ---
APPROVED REPORT EKG Measurement Heart [id number] <Conclusion> Normal sinus rhythm Left ventricular hypertrophy with repolarization abnormality Abnormal ECG
--- NOTE | 2017-03-11 12:55 | CARD ---
APPROVED REPORT EKG Measurement Heart [id number] <Conclusion> Atrial flutter with variable AV block ST & T wave abnormality, consider inferolateral ischemia Abnormal ECG
--- NOTE | 2017-03-11 14:46 | CP.PCM.PN ---
Subjective - Date & Time of Evaluation Date of Evaluation: 03/11/17 Time of Evaluation: 14:41 - Subjective Subjective: Patient seen today and states he will be going for EGD in am. Still anxious and meds seeking. Compliant with meds MSE- fairly developed male, legally blind, oreinted x 3. Mood is chronically depressed. Affect is reactive. Speech is spontaneous. TP- coherent- TC- no si or hi, no psychosis. Attention and memory limited. Insight and Judgment limited. Impulse control fair. Objective - Vital Signs/Intake and Output Vital Signs (last 24 hours): Temp Pulse Resp BP Pulse Ox 97.6 F 76 18 123/85 100 03/11/17 09:16 03/11/17 14:16 03/11/17 09:16 03/11/17 14:16 03/11/17 09:16 Intake and Output: 03/11/17 03/11/17 06:59 18:59 Intake Total 240 Balance 240 - Medications Medications: Current Medications Alprazolam (Xanax) 1 mg PO [facility] Last Admin: 03/10/17 22:12 Dose: 1 mg Amiodarone HCl (Cordarone) 200 mg PO BID [facility] Last Admin: 03/11/17 10:51 Dose: 200 mg Amlodipine Besylate (Norvasc) 10 mg PO DAILY [facility] Last Admin: 03/11/17 10:51 Dose: 10 mg Aspirin (Ecotrin) 81 mg PO DAILY [facility] Last Admin: 03/07/17 13:58 Dose: 81 mg Carvedilol (Coreg) 25 mg PO BID [facility] Last Admin: 03/11/17 10:51 Dose: 25 mg Hydromorphone HCl (Dilaudid) 0.5 mg IVP Q6H PRN PRN Reason: Pain, moderate (4-7) Last Admin: 03/11/17 14:18 Dose: 0.5 mg Insulin Detemir (Levemir) 14 unit SC [facility] Last Admin: 03/10/17 22:14 Dose: 14 unit Insulin Human Regular (Novolin R) 0 unit SC [facility] PRN Reason: Protocol Last Admin: 03/11/17 12:54 Dose: 2 unit Isosorbide Mononitrate (Imdur) 60 mg PO DAILY [facility] Last Admin: 03/11/17 10:51 Dose: 60 mg Sertraline HCl (Zoloft) 50 mg PO DAILY [facility] Last Admin: 03/11/17 10:51 Dose: 50 mg - Labs Labs: 03/10/17 19:28 03/10/17 08:05 PT 11.8 SECONDS (9.7-12.2) 03/10/17 08:05 INR 1.0 03/10/17 08:05 APTT 31 SECONDS (21-34) D 03/10/17 08:05 - Constitutional Appears: Well, No Acute Distress, Chronically Ill - Head Exam Head Exam: NORMOCEPHALIC - Eye Exam Additional comments: legally blind - ENT Exam ENT Exam: Normal Exam - Neck Exam Neck Exam: Full ROM - Respiratory Exam Respiratory Exam: NORMAL BREATHING PATTERN - Cardiovascular Exam Additional comments: no chest pain - GI/Abdominal Exam Additional comments: no abdominal pain - Exam Additional comments: no dysuria - Extremities Exam Additional comments: pt is a bilateral amputee - Back Exam Additional comments: no back pain - Neurological Exam Neurological Exam: Alert, Awake, Oriented x3 - Psychiatric Exam Psychiatric exam: Anxious, Depressed - Skin Skin Exam: Normal Color Assessment and Plan - Assessment and Plan (Free Text) Assessment: Hx of major depression recurrent anxiety disroder and delirium ESRD on HD, DM, neuropathy bilateral amputee Plan: Patient is for EGD in am. Continue dialysis as ordered and present psych meds.
--- NOTE | 2017-03-11 15:35 | CARD ---
APPROVED REPORT EKG Measurement Heart [id number] <Conclusion> Normal sinus rhythm ST & T wave abnormality, consider inferolateral ischemia Abnormal ECG
--- NOTE | 2017-03-11 17:23 | CP.PCM.PN ---
Subjective - Date & Time of Evaluation Date of Evaluation: 03/11/17 Time of Evaluation: 17:21 - Subjective Subjective: pt bs hi today still wbc up will have endo in am had dialysis today Objective - Vital Signs/Intake and Output Vital Signs (last 24 hours): Temp Pulse Resp BP Pulse Ox 98.0 F 68 20 95/63 L 100 03/11/17 16:14 03/11/17 16:14 03/11/17 16:14 03/11/17 16:14 03/11/17 16:14 Intake and Output: 03/11/17 03/11/17 06:59 18:59 Intake Total 240 Balance 240 - Medications Medications: Current Medications Alprazolam (Xanax) 1 mg PO HS [facility] Last Admin: 03/10/17 22:12 Dose: 1 mg Amiodarone HCl (Cordarone) 200 mg PO BID [facility] Last Admin: 03/11/17 10:51 Dose: 200 mg Amlodipine Besylate (Norvasc) 10 mg PO DAILY [facility] Last Admin: 03/11/17 10:51 Dose: 10 mg Aspirin (Ecotrin) 81 mg PO DAILY [facility] Last Admin: 03/07/17 13:58 Dose: 81 mg Carvedilol (Coreg) 25 mg PO BID [facility] Last Admin: 03/11/17 10:51 Dose: 25 mg Hydromorphone HCl (Dilaudid) 0.5 mg IVP Q6H PRN PRN Reason: Pain, moderate (4-7) Last Admin: 03/11/17 14:18 Dose: 0.5 mg Insulin Detemir (Levemir) 14 unit SC HS [facility] Last Admin: 03/10/17 22:14 Dose: 14 unit Insulin Human Regular (Novolin R) 0 unit SC [facility] PRN Reason: Protocol Last Admin: 03/11/17 12:54 Dose: 2 unit Isosorbide Mononitrate (Imdur) 60 mg PO DAILY [facility] Last Admin: 03/11/17 10:51 Dose: 60 mg Sertraline HCl (Zoloft) 50 mg PO DAILY [facility] Last Admin: 03/11/17 10:51 Dose: 50 mg - Labs Labs: 03/10/17 19:28 03/10/17 08:05 PT 11.8 SECONDS (9.7-12.2) 03/10/17 08:05 INR 1.0 03/10/17 08:05 APTT 31 SECONDS (21-34) D 03/10/17 08:05 - Constitutional Appears: No Acute Distress - Head Exam Head Exam: NORMOCEPHALIC - Eye Exam Eye Exam: Conjunctival injection - ENT Exam ENT Exam: Mucous Membranes Moist - Respiratory Exam Respiratory Exam: Decreased Breath Sounds - Cardiovascular Exam Cardiovascular Exam: REGULAR RHYTHM - GI/Abdominal Exam GI & Abdominal Exam: Normal Bowel Sounds - Back Exam Back Exam: CVA tenderness (L) - Neurological Exam Neurological Exam: Alert, Awake - Psychiatric Exam Psychiatric exam: Normal Mood - Skin Skin Exam: Pallor Assessment and Plan - Assessment and Plan (Free Text) Assessment: gi bleeding pud dmid uncontroled esrf Plan: cont as per orders
[2017-03-11] MEDS: Insulin Detemir 100 units/ml Vial (Levemir) SC SCH ×2 (21:37→21:40)
[2017-03-12] MEDS: HYDROmorphone 0.5 mg/0.5 ml ISec IVP PRN ×2 (03:48→18:13)
[2017-03-12] MEDS: (Novolin R) Insulin Human Regular 100 units/ml vial SC SCH ×4 (08:30→22:10)
[2017-03-12] MEDS ORDERED: Lactated Ringer's 500 ML IV ONE ×2 (08:37)
[2017-03-12] MEDS ORDERED: Propofol 10 mg/ml Inj (20 ML) ONE (08:38)
[2017-03-12 08:40] LABS: CALCIUM 8.9 mg/dl (8.6-10.4)
--- NOTE | 2017-03-12 10:17 | CP.PCM.PN ---
Subjective - Date & Time of Evaluation Date of Evaluation: 03/12/17 Time of Evaluation: 10:14 - Subjective Subjective: Patient crying when seen and asking for more painmeds when he was just given a few minutes ago. Still meds seeking. MSE- fairly developed male, crying when seen, oriented x 3, mood is still depressed, affect is reactive. speech is spontaneous. TP- coherent TC- no si o rhi, wants more pain meds, EGD was cancelled today. No psychosis. Attention and Memory limited. Insight and Judgment limited. Impulse control fair. Objective - Vital Signs/Intake and Output Vital Signs (last 24 hours): Temp Pulse Resp BP Pulse Ox 97.3 F L 68 18 157/78 H 100 03/12/17 09:59 03/12/17 09:59 03/12/17 09:59 03/12/17 09:59 03/12/17 09:05 Intake and Output: 03/12/17 03/12/17 06:59 18:59 Intake Total 120 Balance 120 - Medications Medications: Current Medications Alprazolam (Xanax) 1 mg PO HS [facility] Last Admin: 03/11/17 21:36 Dose: 1 mg Amiodarone HCl (Cordarone) 200 mg PO BID [facility] Last Admin: 03/11/17 18:42 Dose: Not Given Amlodipine Besylate (Norvasc) 10 mg PO DAILY [facility] Last Admin: 03/11/17 10:51 Dose: 10 mg Aspirin (Ecotrin) 81 mg PO DAILY [facility] Last Admin: 03/07/17 13:58 Dose: 81 mg Carvedilol (Coreg) 25 mg PO BID [facility] Last Admin: 03/11/17 18:28 Dose: Not Given Hydromorphone HCl (Dilaudid) 0.5 mg IVP Q6H PRN PRN Reason: Pain, moderate (4-7) Last Admin: 03/12/17 03:48 Dose: 0.5 mg Insulin Detemir (Levemir) 14 unit SC HS [facility] Last Admin: 03/11/17 21:40 Dose: Not Given Insulin Human Regular (Novolin R) 0 unit SC [facility] PRN Reason: Protocol Last Admin: 03/12/17 08:30 Dose: Not Given Isosorbide Mononitrate (Imdur) 60 mg PO DAILY [facility] Last Admin: 03/11/17 10:51 Dose: 60 mg Ondansetron HCl (Zofran Inj) 8 mg IVP Q6 [facility] Sertraline HCl (Zoloft) 50 mg PO DAILY [facility] Last Admin: 03/11/17 10:51 Dose: 50 mg - Labs Labs: 03/10/17 19:28 03/12/17 08:07 PT 11.8 SECONDS (9.7-12.2) 03/10/17 08:05 INR 1.0 03/10/17 08:05 APTT 31 SECONDS (21-34) D 03/10/17 08:05 - Constitutional Appears: No Acute Distress, Agitated, Chronically Ill - Head Exam Head Exam: NORMOCEPHALIC - Eye Exam Additional comments: legally blind - ENT Exam ENT Exam: Normal Exam - Neck Exam Neck Exam: Full ROM - Respiratory Exam Respiratory Exam: NORMAL BREATHING PATTERN - Cardiovascular Exam Additional comments: no chest pain - GI/Abdominal Exam Additional comments: no nausea or vomiting - Exam Additional comments: no dysuria - Extremities Exam Additional comments: has chronic apin, bilalteral amputee - Back Exam Additional comments: no back pain - Psychiatric Exam Psychiatric exam: Agitated, Depressed - Skin Skin Exam: Normal Color Assessment and Plan - Assessment and Plan (Free Text) Assessment: Depression,Delirium Anxiety, ESRD on HD, DM, Neuropathy Bilateral amputee Plan: Continue tx plan. No need to increase dose of pain meds at this time. Continue dialysis as ordered.
--- NOTE | 2017-03-12 11:03 | CP.PCM.PN ---
Subjective - Date & Time of Evaluation Date of Evaluation: 03/12/17 Time of Evaluation: 10:00 - Subjective Subjective: Pt states that he feels better today Objective - Vital Signs/Intake and Output Vital Signs (last 24 hours): Temp Pulse Resp BP Pulse Ox 97.3 F L 68 18 157/78 H 100 03/12/17 09:59 03/12/17 09:59 03/12/17 09:59 03/12/17 10:18 03/12/17 09:05 Intake and Output: 03/12/17 03/12/17 06:59 18:59 Intake Total 120 Balance 120 - Medications Medications: Current Medications Alprazolam (Xanax) 1 mg PO HS [facility] Last Admin: 03/11/17 21:36 Dose: 1 mg Amiodarone HCl (Cordarone) 200 mg PO BID [facility] Last Admin: 03/12/17 10:18 Dose: 200 mg Amlodipine Besylate (Norvasc) 10 mg PO DAILY [facility] Last Admin: 03/12/17 10:18 Dose: 10 mg Aspirin (Ecotrin) 81 mg PO DAILY [facility] Last Admin: 03/07/17 13:58 Dose: 81 mg Carvedilol (Coreg) 25 mg PO BID [facility] Last Admin: 03/12/17 10:18 Dose: 25 mg Hydromorphone HCl (Dilaudid) 0.5 mg IVP Q6H PRN PRN Reason: Pain, moderate (4-7) Last Admin: 03/12/17 03:48 Dose: 0.5 mg Insulin Detemir (Levemir) 14 unit SC [facility] Last Admin: 03/11/17 21:40 Dose: Not Given Insulin Human Regular (Novolin R) 0 unit SC [facility] PRN Reason: Protocol Last Admin: 03/12/17 08:30 Dose: Not Given Isosorbide Mononitrate (Imdur) 60 mg PO DAILY [facility] Last Admin: 03/12/17 10:18 Dose: 60 mg Ondansetron HCl (Zofran Inj) 8 mg IVP Q6 [facility] Sertraline HCl (Zoloft) 50 mg PO DAILY [facility] Last Admin: 03/12/17 10:18 Dose: 50 mg - Labs Labs: 03/10/17 19:28 03/12/17 08:07 PT 11.8 SECONDS (9.7-12.2) 03/10/17 08:05 INR 1.0 03/10/17 08:05 APTT 31 SECONDS (21-34) D 03/10/17 08:05 - Respiratory Exam Additional comments: Lungs clear - Cardiovascular Exam Cardiovascular Exam: REGULAR RHYTHM - Extremities Exam Additional comments: B/l BKA Assessment and Plan - Assessment and Plan (Free Text) Assessment: ESRD on HD HTN CAD IDDM Plan: Stable on dialysis. Scheduled for dialysis today BP controlled
--- NOTE | 2017-03-12 11:17 | CP.PCM.PN ---
Subjective - Date & Time of Evaluation Date of Evaluation: 03/12/17 Time of Evaluation: 11:14 - Subjective Subjective: pt seen and examined could not get the endoscopy don there was food inside his stomcjk bs is hi Objective - Vital Signs/Intake and Output Vital Signs (last 24 hours): Temp Pulse Resp BP Pulse Ox 97.3 F L 68 18 157/78 H 100 03/12/17 09:59 03/12/17 09:59 03/12/17 09:59 03/12/17 10:18 03/12/17 09:05 Intake and Output: 03/12/17 03/12/17 06:59 18:59 Intake Total 120 Balance 120 - Medications Medications: Current Medications Alprazolam (Xanax) 1 mg PO HS [facility] Last Admin: 03/11/17 21:36 Dose: 1 mg Amiodarone HCl (Cordarone) 200 mg PO BID [facility] Last Admin: 03/12/17 10:18 Dose: 200 mg Amlodipine Besylate (Norvasc) 10 mg PO DAILY [facility] Last Admin: 03/12/17 10:18 Dose: 10 mg Aspirin (Ecotrin) 81 mg PO DAILY [facility] Last Admin: 03/07/17 13:58 Dose: 81 mg Carvedilol (Coreg) 25 mg PO BID [facility] Last Admin: 03/12/17 10:18 Dose: 25 mg Hydromorphone HCl (Dilaudid) 0.5 mg IVP Q6H PRN PRN Reason: Pain, moderate (4-7) Last Admin: 03/12/17 03:48 Dose: 0.5 mg Insulin Detemir (Levemir) 14 unit SC [facility] Last Admin: 03/11/17 21:40 Dose: Not Given Insulin Human Regular (Novolin R) 0 unit SC [facility] PRN Reason: Protocol Last Admin: 03/12/17 08:30 Dose: Not Given Isosorbide Mononitrate (Imdur) 60 mg PO DAILY [facility] Last Admin: 03/12/17 10:18 Dose: 60 mg Ondansetron HCl (Zofran Inj) 8 mg IVP Q6 [facility] Sertraline HCl (Zoloft) 50 mg PO DAILY [facility] Last Admin: 03/12/17 10:18 Dose: 50 mg - Labs Labs: 03/10/17 19:28 03/12/17 08:07 PT 11.8 SECONDS (9.7-12.2) 03/10/17 08:05 INR 1.0 03/10/17 08:05 APTT 31 SECONDS (21-34) D 03/10/17 08:05 - Constitutional Appears: Non-toxic - Head Exam Head Exam: NORMAL INSPECTION - ENT Exam ENT Exam: Mucous Membranes Dry - Neck Exam Neck Exam: Tenderness - Respiratory Exam Respiratory Exam: NORMAL BREATHING PATTERN - Cardiovascular Exam Cardiovascular Exam: REGULAR RHYTHM - Rectal Exam Rectal Exam: NORMAL INSPECTION - Neurological Exam Neurological Exam: Oriented x3 - Psychiatric Exam Psychiatric exam: Normal Mood - Skin Skin Exam: Dry, Pallor Assessment and Plan - Assessment and Plan (Free Text) Assessment: uncontroled dmid gi bleeding esrf Plan: inc insulin endo in am
[2017-03-12] MEDS: (Novolog) Insulin Aspart, Recombinant 100 u/ml 10 ml vial SC SCH (22:10)
[2017-03-12] MEDS: Insulin Detemir 100 units/ml Vial (Levemir) SC SCH (22:12)
[2017-03-13] MEDS: HYDROmorphone 0.5 mg/0.5 ml ISec IVP PRN ×3 (05:11→18:19)
[2017-03-13] MEDS: (Novolog) Insulin Aspart, Recombinant 100 u/ml 10 ml vial SC SCH ×2 (07:46→21:39)
[2017-03-13] MEDS: (Novolin R) Insulin Human Regular 100 units/ml vial SC SCH ×5 (07:46→21:38)
[2017-03-13] MEDS ORDERED: Albuterol-Ipratrop 3 mg / 0.5 (3 ml) UD INH STA (10:25)
[2017-03-13] MEDS ORDERED: Propofol 10 mg/ml Inj (20 ML) ONE (10:39)
[2017-03-13] MEDS ORDERED: Lidocaine Hydrochloride 5 ML INJ ONE (10:40)
[2017-03-13] MEDS ORDERED: Sodium Chloride 0.9% 1,000 ML IV SCH (11:15)
--- NOTE | 2017-03-13 14:22 | US ---
HISTORY: n./vomiting , HX. OF RENAL DISEASE / P U D. COMPARISON: None. TECHNIQUE: Grayscale imaging was performed. FINDINGS: LIVER: Measures 16.6 cm. There is diffuse increased echogenicity of the liver parenchyma. No mass. No intrahepatic bile duct dilatation. GALLBLADDER: Surgically absent. COMMON BILE DUCT: Measures 3.3 mm. No stones. No dilatation. PANCREAS: Unremarkable as visualized. No mass. No ductal dilatation. RIGHT KIDNEY: Measures 11.2cm. Normal echogenicity. No calculus, mass, or hydronephrosis. LEFT KIDNEY: Small in size and measures 7.0cm. Normal echogenicity. No calculus, mass, or hydronephrosis. SPLEEN: Normal in size and contour. No mass. AORTA: No aneurysmal dilatation. IVC: Unremarkable. OTHER FINDINGS: None. IMPRESSION: Diffuse increased echogenicity in the liver may reflect hepatic steatosis however parenchymal infectious/ inflammatory etiologies cannot be entirely excluded. Clinical and laboratory correlation is advised. . Small left kidney. No hydronephrosis or nephrolithiasis.
--- NOTE | 2017-03-13 14:59 | CP.PCM.PN ---
Subjective - Date & Time of Evaluation Date of Evaluation: 03/13/17 Time of Evaluation: 14:55 - Subjective Subjective: Patient seen today for follow-up. Still has off and on complaints of abdominal pain and had EGD done by Dr. Kan and d jyotio have gastritis, duodenitis, gastroparesis. Still anxious, med seeking and somatic. Patient ate 100% of his lunch. MSE- fairly developed male, alert and oriented x3, a bilateral amputee, mood is somatic, meds seeking jeff with pain meds, depressed. Affect is reactive. TP- coherent- TC- no si or hi, no psychosis, wants more pain meds. Attention and memory limited. Insight and Judgment limited. Impulse control fair. Objective - Vital Signs/Intake and Output Vital Signs (last 24 hours): Temp Pulse Resp BP Pulse Ox 98 F 68 18 180/76 H 100 03/13/17 10:57 03/13/17 12:07 03/13/17 11:27 03/13/17 12:07 03/13/17 11:27 Intake and Output: 03/13/17 03/13/17 06:59 18:59 Intake Total 120 Balance 120 - Medications Medications: Current Medications Alprazolam (Xanax) 1 mg PO HS [facility] Last Admin: 03/12/17 22:10 Dose: 1 mg Amiodarone HCl (Cordarone) 200 mg PO BID [facility] Last Admin: 03/13/17 10:20 Dose: Not Given Amlodipine Besylate (Norvasc) 10 mg PO DAILY [facility] Last Admin: 03/13/17 12:05 Dose: 10 mg Aspirin (Ecotrin) 81 mg PO DAILY [facility] Last Admin: 03/07/17 13:58 Dose: 81 mg Carvedilol (Coreg) 25 mg PO BID [facility] Last Admin: 03/13/17 10:25 Dose: Not Given Clopidogrel Bisulfate (Plavix) 75 mg PO DAILY [facility] Last Admin: 03/13/17 12:18 Dose: Not Given Hydromorphone HCl (Dilaudid) 0.5 mg IVP Q6H PRN PRN Reason: Pain, moderate (4-7) Last Admin: 03/13/17 12:06 Dose: 0.5 mg Insulin Aspart (Novolog) 6 unit SC [facility] Last Admin: 03/13/17 07:46 Dose: Not Given Insulin Detemir (Levemir) 14 unit SC HS [facility] Last Admin: 03/12/17 22:12 Dose: Not Given Insulin Human Regular (Novolin R) 0 unit SC [facility] PRN Reason: Protocol Last Admin: 03/13/17 13:45 Dose: 3 unit Isosorbide Mononitrate (Imdur) 60 mg PO DAILY [facility] Last Admin: 03/13/17 12:05 Dose: 60 mg Ondansetron HCl (Zofran Inj) 8 mg IVP Q6 [facility] Last Admin: 03/13/17 12:06 Dose: Not Given Sertraline HCl (Zoloft) 50 mg PO DAILY [facility] Last Admin: 03/13/17 12:06 Dose: Not Given - Labs Labs: 03/10/17 19:28 03/12/17 08:07 PT 11.8 SECONDS (9.7-12.2) 03/10/17 08:05 INR 1.0 03/10/17 08:05 APTT 31 SECONDS (21-34) D 03/10/17 08:05 - Constitutional Appears: Well, No Acute Distress, Chronically Ill - Head Exam Head Exam: NORMOCEPHALIC - Eye Exam Additional comments: legally blind - ENT Exam ENT Exam: Normal Exam - Neck Exam Neck Exam: Full ROM - Respiratory Exam Respiratory Exam: NORMAL BREATHING PATTERN - Cardiovascular Exam Additional comments: n0 chest pain - GI/Abdominal Exam Additional comments: has off and on abdominal pain. has good appetite - Exam Additional comments: no dysuria - Back Exam Additional comments: no back pain - Psychiatric Exam Psychiatric exam: Anxious, Depressed - Skin Skin Exam: Normal Color Assessment and Plan - Assessment and Plan (Free Text) Assessment: Hx of depression, anxiety and delirium Metabolic encephalopathy DM, ESRD on HD, CHF, Neuropathy Plan: Continue present tx plan. Continue dialysis as ordered. Continue pain meds as ordered.
--- NOTE | 2017-03-13 16:18 | CP.PCM.PN ---
Subjective - Date & Time of Evaluation Date of Evaluation: 03/13/17 Time of Evaluation: 05:00 - Subjective Subjective: Feels better. No c/o SOB Objective - Vital Signs/Intake and Output Vital Signs (last 24 hours): Temp Pulse Resp BP Pulse Ox 98 F 68 18 180/76 H 100 03/13/17 10:57 03/13/17 12:07 03/13/17 11:27 03/13/17 12:07 03/13/17 11:27 Intake and Output: 03/13/17 03/13/17 06:59 18:59 Intake Total 140 Balance 140 - Medications Medications: Current Medications Alprazolam (Xanax) 1 mg PO HS [facility] Last Admin: 03/12/17 22:10 Dose: 1 mg Amiodarone HCl (Cordarone) 200 mg PO BID [facility] Last Admin: 03/13/17 10:20 Dose: Not Given Amlodipine Besylate (Norvasc) 10 mg PO DAILY [facility] Last Admin: 03/13/17 12:05 Dose: 10 mg Aspirin (Ecotrin) 81 mg PO DAILY [facility] Last Admin: 03/07/17 13:58 Dose: 81 mg Carvedilol (Coreg) 25 mg PO BID [facility] Last Admin: 03/13/17 10:25 Dose: Not Given Clopidogrel Bisulfate (Plavix) 75 mg PO DAILY [facility] Last Admin: 03/13/17 12:18 Dose: Not Given Hydromorphone HCl (Dilaudid) 0.5 mg IVP Q6H PRN PRN Reason: Pain, moderate (4-7) Last Admin: 03/13/17 12:06 Dose: 0.5 mg Insulin Aspart (Novolog) 6 unit SC [facility] Last Admin: 03/13/17 07:46 Dose: Not Given Insulin Detemir (Levemir) 14 unit SC HS [facility] Last Admin: 03/12/17 22:12 Dose: Not Given Insulin Human Regular (Novolin R) 0 unit SC [facility] PRN Reason: Protocol Last Admin: 03/13/17 13:45 Dose: 3 unit Isosorbide Mononitrate (Imdur) 60 mg PO DAILY [facility] Last Admin: 03/13/17 12:05 Dose: 60 mg Ondansetron HCl (Zofran Inj) 8 mg IVP Q6 [facility] Last Admin: 03/13/17 12:06 Dose: Not Given Sertraline HCl (Zoloft) 50 mg PO DAILY [facility] Last Admin: 03/13/17 12:06 Dose: Not Given - Labs Labs: 03/10/17 19:28 03/12/17 08:07 PT 11.8 SECONDS (9.7-12.2) 03/10/17 08:05 INR 1.0 03/10/17 08:05 APTT 31 SECONDS (21-34) D 03/10/17 08:05 - Respiratory Exam Additional comments: Lungs clear - Cardiovascular Exam Cardiovascular Exam: REGULAR RHYTHM - Extremities Exam Additional comments: B/L BKA Assessment and Plan - Assessment and Plan (Free Text) Assessment: ESRD HTN CAD IDDM FOB + Plan: Endoscopy reports pending For dialysis tomorrow
[2017-03-13 20:36] LABS: AMYLASE 136 U/L (30-110); LIPASE 493 U/L (23-300)
[2017-03-13] MEDS: Insulin Detemir 100 units/ml Vial (Levemir) SC SCH (21:38)
[2017-03-14] MEDS: HYDROmorphone 0.5 mg/0.5 ml ISec IVP PRN ×4 (00:13→18:50)
[2017-03-14 07:00] LABS: HEMOGLOBIN 10.6 g/dL (12.0-18.0); MEAN CELL VOLUME 86.9 fL (80.0-94.0); MEAN PLATELET VOLUME 8.9 fL (7.2-11.7); RBC 3.92 Mil/uL (4.40-5.90); RED CELL DISTRIBUTION WIDTH 18.8 % (11.5-14.5); WHITE BLOOD COUNT 11.7 K/uL (4.8-10.8)
[2017-03-14 07:08] LABS: CALCIUM 8.6 mg/dl (8.6-10.4)
[2017-03-14] MEDS: (Novolin R) Insulin Human Regular 100 units/ml vial SC SCH ×4 (08:30→21:48)
[2017-03-14] MEDS: (Novolog) Insulin Aspart, Recombinant 100 u/ml 10 ml vial SC SCH (08:51)
--- NOTE | 2017-03-14 09:36 | CP.PCM.PN ---
Subjective - Date & Time of Evaluation Date of Evaluation: 03/14/17 Time of Evaluation: 09:35 - Subjective Subjective: Events reviewed Hyperkalemia a 6.1 Getting HD now Mild delerium Objective - Vital Signs/Intake and Output Vital Signs (last 24 hours): Temp Pulse Resp BP Pulse Ox 97.4 F L 62 18 179/80 H 100 03/14/17 08:36 03/14/17 08:36 03/14/17 08:36 03/14/17 08:36 03/14/17 08:36 Intake and Output: 03/14/17 03/14/17 06:59 18:59 Intake Total 120 Balance 120 - Medications Medications: Current Medications Alprazolam (Xanax) 1 mg PO [facility] Last Admin: 03/14/17 00:23 Dose: 1 mg Amiodarone HCl (Cordarone) 200 mg PO BID [facility] Last Admin: 03/13/17 18:19 Dose: 200 mg Amlodipine Besylate (Norvasc) 10 mg PO DAILY [facility] Last Admin: 03/13/17 12:05 Dose: 10 mg Aspirin (Ecotrin) 81 mg PO DAILY [facility] Last Admin: 03/07/17 13:58 Dose: 81 mg Carvedilol (Coreg) 25 mg PO BID [facility] Last Admin: 03/13/17 18:38 Dose: Not Given Clopidogrel Bisulfate (Plavix) 75 mg PO DAILY [facility] Last Admin: 03/13/17 12:18 Dose: Not Given Hydromorphone HCl (Dilaudid) 0.5 mg IVP Q6H PRN PRN Reason: Pain, moderate (4-7) Last Admin: 03/14/17 06:15 Dose: 0.5 mg Insulin Aspart (Novolog) 6 unit SC ACS [facility] Last Admin: 03/14/17 08:51 Dose: 6 unit Insulin Detemir (Levemir) 14 unit SC HS [facility] Last Admin: 03/13/17 21:38 Dose: 14 unit Insulin Human Regular (Novolin R) 0 unit SC [facility] PRN Reason: Protocol Last Admin: 03/14/17 08:30 Dose: 2 unit Isosorbide Mononitrate (Imdur) 60 mg PO DAILY [facility] Last Admin: 03/13/17 12:05 Dose: 60 mg Ondansetron HCl (Zofran Inj) 8 mg IVP Q6 [facility] Last Admin: 03/14/17 06:12 Dose: Not Given Sertraline HCl (Zoloft) 50 mg PO DAILY [facility] Last Admin: 03/13/17 12:06 Dose: Not Given - Labs Labs: 03/14/17 06:37 03/14/17 06:37 PT 11.8 SECONDS (9.7-12.2) 03/10/17 08:05 INR 1.0 03/10/17 08:05 APTT 31 SECONDS (21-34) D 03/10/17 08:05 - Constitutional Appears: Chronically Ill - Head Exam Head Exam: ATRAUMATIC, NORMAL INSPECTION, NORMOCEPHALIC - Eye Exam Eye Exam: EOMI. absent: Normal appearance - ENT Exam ENT Exam: Mucous Membranes Moist - Neck Exam Neck Exam: Full ROM - Respiratory Exam Respiratory Exam: Clear to Ausculation Bilateral, NORMAL BREATHING PATTERN. absent: Rhonchi, Wheezes - Cardiovascular Exam Cardiovascular Exam: REGULAR RHYTHM, +S1, +S2, Murmur. absent: Gallop, Rubs, + S4 - GI/Abdominal Exam GI & Abdominal Exam: Soft. absent: Tenderness - Extremities Exam Extremities Exam: absent: Normal Inspection (b/l BKA) Assessment and Plan - Assessment and Plan (Free Text) Assessment: CAD: hx of CABG and subsequent stent; patient CAD status is stable and should be medically treated wth Coreg,IMDUR/Statin. He has had normal LV function with chronic diastolic dysfunction. EKG: read by me: Aflutter 2:[address] chages, LVH and LAE * LDL goal 50-70 * Diabetic control * ASA, Coreg, Imdur, ranexa * No active cardiac sx's; cont medical therapy. * Cont volume removal with HD HTN: labile Continue medical treatment as prescribed BP is labile on max doses of coreg, Norvasc, add hydralazine or minoxidil 2.5 daily in addition if needed. AFLUTTER: New onset: Mild inc troponin is likely secondary to same and fast rate : now better controlled. Patient will need rate control and anticoagulation with coumadin for INR goal 2-3 if no contraindications from GI standpoint. Triple therapy would increase risk of bleeding therefore I suggest ASA and Coumadin or Plavix and coumadin as choice of therapy. Appreciate EP consultation: Atrial tachycardia & AFLUTTER to be treated with amiodarone 200 BID x1 month then 200 daily: Given GI bleed patient at risk for high intensity DAPT and coumadin for stroke prevention. Will defer any ablation until or unless clinically significant or uncontrollable arrythmia. * Currently anemia hgb 9.0: If high risk for GI bleed suggest ASA 81 and plavix only. S/P GI w/u: await results DM: labile: Cont medical rx continued education and counseling management per primary team PAD: S/P B/L BKA ASX No signs of ulcer or wound dehiscence ESRD: Stable chem cont maintainence HD, Monitor lytes
--- NOTE | 2017-03-14 11:12 | CP.PCM.PN ---
Subjective - Date & Time of Evaluation Date of Evaluation: 03/14/17 Time of Evaluation: 11:00 - Subjective Subjective: Currently on dialysis No c/o SOB Objective - Vital Signs/Intake and Output Vital Signs (last 24 hours): Temp Pulse Resp BP Pulse Ox 97.9 F 61 16 142/76 100 03/14/17 09:10 03/14/17 09:10 03/14/17 09:10 03/14/17 09:45 03/14/17 09:10 Intake and Output: 03/14/17 03/14/17 06:59 18:59 Intake Total 120 Balance 120 - Medications Medications: Current Medications Alprazolam (Xanax) 1 mg PO HS [facility] Last Admin: 03/14/17 00:23 Dose: 1 mg Amiodarone HCl (Cordarone) 200 mg PO BID [facility] Last Admin: 03/13/17 18:19 Dose: 200 mg Amlodipine Besylate (Norvasc) 10 mg PO DAILY [facility] Last Admin: 03/13/17 12:05 Dose: 10 mg Aspirin (Ecotrin) 81 mg PO DAILY [facility] Last Admin: 03/07/17 13:58 Dose: 81 mg Carvedilol (Coreg) 25 mg PO BID [facility] Last Admin: 03/13/17 18:38 Dose: Not Given Clopidogrel Bisulfate (Plavix) 75 mg PO DAILY [facility] Last Admin: 03/13/17 12:18 Dose: Not Given Hydromorphone HCl (Dilaudid) 0.5 mg IVP Q6H PRN PRN Reason: Pain, moderate (4-7) Last Admin: 03/14/17 06:15 Dose: 0.5 mg Insulin Aspart (Novolog) 6 unit SC ACBHS [facility] Last Admin: 03/14/17 08:51 Dose: 6 unit Insulin Detemir (Levemir) 14 unit SC HS [facility] Last Admin: 03/13/17 21:38 Dose: 14 unit Insulin Human Regular (Novolin R) 0 unit SC [facility] PRN Reason: Protocol Last Admin: 03/14/17 08:30 Dose: 2 unit Isosorbide Mononitrate (Imdur) 60 mg PO DAILY [facility] Last Admin: 03/13/17 12:05 Dose: 60 mg Ondansetron HCl (Zofran Inj) 8 mg IVP Q6 [facility] Last Admin: 03/14/17 06:12 Dose: Not Given Sertraline HCl (Zoloft) 50 mg PO DAILY [facility] Last Admin: 03/13/17 12:06 Dose: Not Given - Labs Labs: 03/14/17 06:37 03/14/17 06:37 PT 11.8 SECONDS (9.7-12.2) 03/10/17 08:05 INR 1.0 03/10/17 08:05 APTT 31 SECONDS (21-34) D 03/10/17 08:05 - Respiratory Exam Additional comments: Lungs clear - Cardiovascular Exam Cardiovascular Exam: REGULAR RHYTHM - Extremities Exam Additional comments: B/L BKA Assessment and Plan - Assessment and Plan (Free Text) Assessment: ESRD Hyperkalemia noted today. 2K+ bath is used CAD,HTN,IDDM Plan: UF goal today 3.3 kg BP stable. Continue HD per schedule
[2017-03-14] MEDS ORDERED: (Novolog) Insulin Aspart, Recombinant 100 u/ml 10 ml vial SC SCH (12:41)
--- NOTE | 2017-03-14 18:50 | CP.PCM.PN ---
Subjective - Date & Time of Evaluation Date of Evaluation: 03/14/17 Time of Evaluation: 18:48 - Subjective Subjective: t c/o of abd pain has elevated lipas and amylas today kept npo Objective - Vital Signs/Intake and Output Vital Signs (last 24 hours): Temp Pulse Resp BP Pulse Ox 97.5 F L 72 20 133/79 98 03/14/17 12:48 03/14/17 12:48 03/14/17 12:48 03/14/17 18:43 03/14/17 12:48 Intake and Output: 03/14/17 03/14/17 06:59 18:59 Intake Total 120 100 Balance 120 100 - Medications Medications: Current Medications Alprazolam (Xanax) 1 mg PO [facility] Last Admin: 03/14/17 00:23 Dose: 1 mg Amiodarone HCl (Cordarone) 200 mg PO BID [facility] Last Admin: 03/14/17 18:43 Dose: 200 mg Amlodipine Besylate (Norvasc) 10 mg PO DAILY [facility] Last Admin: 03/14/17 11:00 Dose: Not Given Aspirin (Ecotrin) 81 mg PO DAILY [facility] Last Admin: 03/07/17 13:58 Dose: 81 mg Carvedilol (Coreg) 25 mg PO BID [facility] Last Admin: 03/14/17 18:43 Dose: 25 mg Clopidogrel Bisulfate (Plavix) 75 mg PO DAILY [facility] Last Admin: 03/14/17 12:50 Dose: 75 mg Hydromorphone HCl (Dilaudid) 0.5 mg IVP Q6H PRN PRN Reason: Pain, moderate (4-7) Last Admin: 03/14/17 12:50 Dose: 0.5 mg Insulin Aspart (Novolog) 6 unit SC [facility] Insulin Detemir (Levemir) 14 unit SC HS [facility] Last Admin: 03/13/17 21:38 Dose: 14 unit Insulin Human Regular (Novolin R) 0 unit SC [facility] PRN Reason: Protocol Last Admin: 03/14/17 13:00 Dose: Not Given Isosorbide Mononitrate (Imdur) 60 mg PO DAILY [facility] Last Admin: 03/14/17 12:49 Dose: 60 mg Ondansetron HCl (Zofran Inj) 4 mg IVP Q6 PRN PRN Reason: Nausea/Vomiting Sertraline HCl (Zoloft) 50 mg PO DAILY [facility] Last Admin: 03/14/17 11:00 Dose: Not Given - Labs Labs: 03/14/17 06:37 03/14/17 06:37 PT 11.8 SECONDS (9.7-12.2) 03/10/17 08:05 INR 1.0 03/10/17 08:05 APTT 31 SECONDS (21-34) D 03/10/17 08:05 - Constitutional Appears: Non-toxic - Head Exam Head Exam: NORMAL INSPECTION - Eye Exam Eye Exam: Conjunctival injection - ENT Exam ENT Exam: Mucous Membranes Dry - Respiratory Exam Respiratory Exam: NORMAL BREATHING PATTERN - Cardiovascular Exam Cardiovascular Exam: REGULAR RHYTHM - GI/Abdominal Exam GI & Abdominal Exam: Tenderness - Rectal Exam Rectal Exam: NORMAL INSPECTION - Back Exam Back Exam: NORMAL INSPECTION - Neurological Exam Neurological Exam: Alert, CN II-XII Intact, Oriented x3 - Psychiatric Exam Psychiatric exam: Anxious - Skin Skin Exam: Normal Color Assessment and Plan - Assessment and Plan (Free Text) Assessment: ac pancreatitis gastritis dm esrf Plan: as per orders
[2017-03-15] MEDS: HYDROmorphone 0.5 mg/0.5 ml ISec IVP PRN ×4 (01:09→20:35)
[2017-03-15] MEDS: (Novolin R) Insulin Human Regular 100 units/ml vial SC SCH ×4 (08:30→21:47)
--- NOTE | 2017-03-15 09:17 | PN ---
LOCATION: 2, bed A. SUBJECTIVE: This is a 36-year-old male, post upper endoscopy with biopsy done on 03/13/2017, seen and examined in rounds with less episodes of nausea and vomiting. The entire chart is reviewed, including but not limited to almost recent lab and radiology study results, current and previous medication list, current and previous medical events as well as allergy to medication list, discussed with the staff in the floor. Ultrasound of the abdomen showed evidence of diffuse fatty infiltrate of the liver with possible infectious changes. PHYSICAL EXAMINATION GENERAL: A 36-year-old male, afebrile. VITAL SIGNS: Pulse of 62, blood pressure of 154/66, and afebrile. HEENT: Showed pale, dry oral mucous membrane. Nonicteric sclerae. HEART: Positive S1 and S2. LUNGS: Reveal scattered crepitations, decreased air entry at bases. ABDOMEN: Soft, bowel sounds are present with mild generalized tenderness. No masses or organomegaly. No rebound tenderness or guarding. RECTAL: The patient refused. EXTREMITIES: Significant clubbing, cyanosis, or edema. NEUROLOGIC: No new reported neurological deficits, sensory or motor. LABORATORY DATA: Today's lab showed leukocytosis of 11.7, low hemoglobin 10.6, low hematocrit 34.0 with normal platelet count, but increased potassium 6.1 with BUN 61 and creatinine 6.8 compatible with the patient's known history of chronic renal failure, he is in hemodialysis with increased blood glucose level to 151. Yesterday serum lipase was elevated to 493 and amylase 136. IMPRESSION: 1. Acute pancreatitis. 2. Poorly controlled diabetes mellitus. 3. Poorly controlled hypertension. 4. Peptic ulcer disease. 5. Diabetic gastroparesis, gastric biopsy report is pending. 6. Anemia, most likely secondary to chronic disease. The patient has chronic renal failure, on hemodialysis. 7. Periods of atrial tachycardia and flutter. SUGGESTIONS: 1. Agree with your plan. 2. Keep the patient n.p.o. until serum lipase and amylase level are normal or near normal. 3. Reglan. 4. Further recommendation to follow. Tamiko Conde MD cc: [facility] # [id number]
--- NOTE | 2017-03-15 12:16 | CP.PCM.PN ---
Subjective - Date & Time of Evaluation Date of Evaluation: 03/15/17 Time of Evaluation: 12:14 - Subjective Subjective: pt crying has abd pain still npo distiller abd lipase hi k hih having dialysis bp dec 90 /60 Objective - Vital Signs/Intake and Output Vital Signs (last 24 hours): Temp Pulse Resp BP Pulse Ox 98.3 F 63 16 106/56 L 98 03/15/17 10:25 03/15/17 10:25 03/15/17 10:05 03/15/17 11:05 03/15/17 10:05 Intake and Output: 03/15/17 03/15/17 06:59 18:59 Intake Total 0 Balance 0 - Medications Medications: Current Medications Alprazolam (Xanax) 1 mg PO [facility] Last Admin: 03/14/17 22:45 Dose: Not Given Amiodarone HCl (Cordarone) 200 mg PO BID [facility] Last Admin: 03/15/17 09:46 Dose: 200 mg Amlodipine Besylate (Norvasc) 10 mg PO DAILY [facility] Last Admin: 03/15/17 10:16 Dose: Not Given Aspirin (Ecotrin) 81 mg PO DAILY [facility] Last Admin: 03/07/17 13:58 Dose: 81 mg Carvedilol (Coreg) 25 mg PO BID [facility] Last Admin: 03/15/17 10:14 Dose: Not Given Clopidogrel Bisulfate (Plavix) 75 mg PO DAILY [facility] Last Admin: 03/15/17 09:46 Dose: 75 mg Fentanyl (Duragesic) 1 patch TD Q72H [facility] Hydromorphone HCl (Dilaudid) 0.5 mg IVP Q6H PRN PRN Reason: Pain, moderate (4-7) Last Admin: 03/15/17 07:54 Dose: 0.5 mg Insulin Aspart (Novolog) 6 unit SC ACBHS [facility] Insulin Detemir (Levemir) 14 unit SC HS [facility] Last Admin: 03/13/17 21:38 Dose: 14 unit Insulin Human Regular (Novolin R) 0 unit SC ACHS [facility] PRN Reason: Protocol Last Admin: 03/15/17 08:30 Dose: Not Given Isosorbide Mononitrate (Imdur) 60 mg PO DAILY [facility] Last Admin: 03/15/17 10:16 Dose: Not Given Ondansetron HCl (Zofran Inj) 4 mg IVP Q6 PRN PRN Reason: Nausea/Vomiting Sertraline HCl (Zoloft) 50 mg PO DAILY [facility] Last Admin: 03/15/17 09:46 Dose: 50 mg - Labs Labs: 03/14/17 06:37 03/15/17 07:42 PT 11.8 SECONDS (9.7-12.2) 03/10/17 08:05 INR 1.0 03/10/17 08:05 APTT 31 SECONDS (21-34) D 03/10/17 08:05 - Constitutional Appears: In Acute Distress - Head Exam Head Exam: ATRAUMATIC - Eye Exam Eye Exam: Conjunctival injection - ENT Exam ENT Exam: Mucous Membranes Dry - Neck Exam Neck Exam: Full ROM - Respiratory Exam Respiratory Exam: Clear to Ausculation Bilateral - Cardiovascular Exam Cardiovascular Exam: REGULAR RHYTHM - GI/Abdominal Exam GI & Abdominal Exam: Tenderness, Diminished Bowel Sounds - Rectal Exam Rectal Exam: NORMAL INSPECTION - Back Exam Back Exam: CVA tenderness (L) - Psychiatric Exam Psychiatric exam: Depressed - Skin Skin Exam: Pallor Assessment and Plan - Assessment and Plan (Free Text) Assessment: ac pancreatitis gastritis dm esrf hyperkaleamia Plan: as per orders
--- NOTE | 2017-03-15 13:19 | PN ---
DATE: 03/14/2017 SUBJECTIVE: The patient is seen. The patient is complaining of increasing abdominal pain off and on and diagnosed to have possible acute pancreatitis. His amylase level was 203 and lipase was 842. The patient; however, seems to be doing well with the current dose of his Dilaudid, which he has been asking every 4 hours. The patient is also on Xanax and Zoloft. He is being followed with GEOVANNA Dawkins MD. REVIEW OF SYSTEMS: The patient is alert and verbal, seen in his room. PHYSICAL EXAMINATION: VITAL SIGNS: Temperature is 97.5, pulse rate is 72, blood pressure is 133/79, respirations 20, and oxygen saturations is 98%. SKIN: no diaphoresis HEENT: The patient is legally blind. no headache reported.. NECK: Supple. RESPIRATORY: No dyspnea. CARDIOVASCULAR: No chest pain. ABDOMEN: Complaining off and on abdominal pain. No nausea. No vomiting. EXTREMITIES: The patient has bilateral amputee. MUSCULOSKELETAL/NEUROLOGIC: Alert and oriented x3. GENITOURINARY: No dysuria. MENTAL STATUS EXAMINATION: GENERAL: Well developed male, who has bilateral amputee. Oriented x3. MOOD: Anxious, somatic. AFFECT: Reactive to content THOUGHT PROCESS: Coherent. THOUGHT CONTENT: No psychosis. No suicidal or homicidal ideation. ATTENTION AND MEMORY: Seems to be fair. INSIGHT AND JUDGEMENT: Limited. IMPULSE CONTROL: Fair. IMPRESSION: 1. History of recurrent depression and anxiety. 2. History of drug-induced delirium in the past. 3. Opioid dependence, especially on pain medications. 4. History of end-stage renal disease, on dialysis. 5. Bilateral amputee. 6. History of diabetes. 7. History of hypertension. PLAN AND RECOMMENDATION: The patient is seen. Medications reviewed. Continue present psychiatric medications as ordered. The patient is currently on Zoloft 50 mg daily and Xanax 1 mg at bedtime. Continue Dilaudid 0.5 mg q.6 p.r.n. Continue dialysis as ordered. GI followup with Dr. Kan. Dale Joseph MD MARIANN
--- NOTE | 2017-03-15 13:22 | CP.PCM.PN ---
Subjective - Date & Time of Evaluation Date of Evaluation: 03/15/17 Time of Evaluation: 11:00 - Subjective Subjective: Currently on dialysis. Extra dialysis is [id number] today because K+ was 6.2 this am despite having scheduled dialysis yesterday Objective - Vital Signs/Intake and Output Vital Signs (last 24 hours): Temp Pulse Resp BP Pulse Ox 98.1 F 72 20 168/84 H 100 03/15/17 13:05 03/15/17 13:05 03/15/17 13:05 03/15/17 13:05 03/15/17 13:05 Intake and Output: 03/15/17 03/15/17 06:59 18:59 Intake Total 0 Balance 0 - Medications Medications: Current Medications Alprazolam (Xanax) 1 mg PO [facility] Last Admin: 03/14/17 22:45 Dose: Not Given Amiodarone HCl (Cordarone) 200 mg PO BID [facility] Last Admin: 03/15/17 09:46 Dose: 200 mg Amlodipine Besylate (Norvasc) 10 mg PO DAILY [facility] Last Admin: 03/15/17 10:16 Dose: Not Given Aspirin (Ecotrin) 81 mg PO DAILY [facility] Last Admin: 03/07/17 13:58 Dose: 81 mg Carvedilol (Coreg) 25 mg PO BID [facility] Last Admin: 03/15/17 10:14 Dose: Not Given Clopidogrel Bisulfate (Plavix) 75 mg PO DAILY [facility] Last Admin: 03/15/17 09:46 Dose: 75 mg Fentanyl (Duragesic) 1 patch TD Q72H [facility] Last Admin: 03/15/17 13:10 Dose: Not Given Hydromorphone HCl (Dilaudid) 0.5 mg IVP Q6H PRN PRN Reason: Pain, moderate (4-7) Last Admin: 03/15/17 07:54 Dose: 0.5 mg Insulin Aspart (Novolog) 6 unit SC ACBHS [facility] Insulin Detemir (Levemir) 14 unit SC HS [facility] Last Admin: 03/13/17 21:38 Dose: 14 unit Insulin Human Regular (Novolin R) 0 unit SC [facility] PRN Reason: Protocol Last Admin: 03/15/17 12:16 Dose: Not Given Isosorbide Mononitrate (Imdur) 60 mg PO DAILY [facility] Last Admin: 03/15/17 10:16 Dose: Not Given Ondansetron HCl (Zofran Inj) 4 mg IVP Q6 PRN PRN Reason: Nausea/Vomiting Sertraline HCl (Zoloft) 50 mg PO DAILY [facility] Last Admin: 03/15/17 09:46 Dose: 50 mg - Labs Labs: 03/14/17 06:37 03/15/17 07:42 PT 11.8 SECONDS (9.7-12.2) 03/10/17 08:05 INR 1.0 03/10/17 08:05 APTT 31 SECONDS (21-34) D 03/10/17 08:05 - Respiratory Exam Additional comments: Lungs clear - Cardiovascular Exam Cardiovascular Exam: REGULAR RHYTHM - Extremities Exam Additional comments: B/L BKA Assessment and Plan - Assessment and Plan (Free Text) Assessment: ESRD Hyperkalemia HTN IDDM Plan: Will repeat K+ post dialysis Monitor BP
--- NOTE | 2017-03-15 13:34 | CP.PCM.PN ---
Subjective - Date & Time of Evaluation Date of Evaluation: 03/15/17 Time of Evaluation: 13:30 - Subjective Subjective: Patient seen today and still complaining of abdomiinal pain and asking for increase of pain meds dose. As per nurse, pt will be started with Fentanyl patch 25 mcg patch q 72 hr but pt says it doesn't work with him in the past. Patient still NPO and feeling hungry. Amylase level is 137 and lipase level is 433. MSE- fairly developed male, a bilateral amputee, oriented x 3, speech is spontaneous. affect is reactive. Mood is somatic, meds seeking. TP- coherent TC - no si or hi, no psychosis. Attention and Memory limited. Insight and Judgment limited. Impulse control fair. Objective - Vital Signs/Intake and Output Vital Signs (last 24 hours): Temp Pulse Resp BP Pulse Ox 98.1 F 72 20 168/84 H 100 03/15/17 13:05 03/15/17 13:05 03/15/17 13:05 03/15/17 13:05 03/15/17 13:05 Intake and Output: 03/15/17 03/15/17 06:59 18:59 Intake Total 0 Balance 0 - Medications Medications: Current Medications Alprazolam (Xanax) 1 mg PO HS [facility] Last Admin: 03/14/17 22:45 Dose: Not Given Amiodarone HCl (Cordarone) 200 mg PO BID [facility] Last Admin: 03/15/17 09:46 Dose: 200 mg Amlodipine Besylate (Norvasc) 10 mg PO DAILY [facility] Last Admin: 03/15/17 10:16 Dose: Not Given Aspirin (Ecotrin) 81 mg PO DAILY [facility] Last Admin: 03/07/17 13:58 Dose: 81 mg Carvedilol (Coreg) 25 mg PO BID [facility] Last Admin: 03/15/17 10:14 Dose: Not Given Clopidogrel Bisulfate (Plavix) 75 mg PO DAILY [facility] Last Admin: 03/15/17 09:46 Dose: 75 mg Fentanyl (Duragesic) 1 patch TD Q72H [facility] Last Admin: 03/15/17 13:10 Dose: Not Given Hydromorphone HCl (Dilaudid) 0.5 mg IVP Q6H PRN PRN Reason: Pain, moderate (4-7) Last Admin: 03/15/17 07:54 Dose: 0.5 mg Insulin Aspart (Novolog) 6 unit SC [facility] Insulin Detemir (Levemir) 14 unit SC HS [facility] Last Admin: 03/13/17 21:38 Dose: 14 unit Insulin Human Regular (Novolin R) 0 unit SC [facility]S [facility] PRN Reason: Protocol Last Admin: 03/15/17 12:16 Dose: Not Given Isosorbide Mononitrate (Imdur) 60 mg PO DAILY [facility] Last Admin: 03/15/17 10:16 Dose: Not Given Ondansetron HCl (Zofran Inj) 4 mg IVP Q6 PRN PRN Reason: Nausea/Vomiting Sertraline HCl (Zoloft) 50 mg PO DAILY [facility] Last Admin: 03/15/17 09:46 Dose: 50 mg - Labs Labs: 03/14/17 06:37 03/15/17 13:01 PT 11.8 SECONDS (9.7-12.2) 03/10/17 08:05 INR 1.0 03/10/17 08:05 APTT 31 SECONDS (21-34) D 03/10/17 08:05 - Constitutional Appears: Well, No Acute Distress, Chronically Ill - Head Exam Head Exam: NORMOCEPHALIC - Eye Exam Additional comments: legally blind - ENT Exam ENT Exam: Normal Exam - Neck Exam Neck Exam: Full ROM - Respiratory Exam Respiratory Exam: NORMAL BREATHING PATTERN - Cardiovascular Exam Cardiovascular Exam: REGULAR RHYTHM - GI/Abdominal Exam Additional comments: has off and on abdominal pain, no nausea or vomiting - Exam Additional comments: no dysuria - Extremities Exam Additional comments: bilateral amputee, has chronic neuropathic pain from DM - Back Exam Additional comments: no back pain - Neurological Exam Neurological Exam: Alert, Awake, Oriented x3 - Psychiatric Exam Psychiatric exam: Depressed, Normal Affect - Skin Skin Exam: Normal Color Assessment and Plan - Assessment and Plan (Free Text) Assessment: Hx of depression, anxiety and drug induced delirium ]ESRD on HD, Dm, bilateral amputee pancreatitis Plan: Continue dialysis as ordered and current pain meds for now.Continue present psych meds as ordered.
[2017-03-16] MEDS: HYDROmorphone 0.5 mg/0.5 ml ISec IVP PRN ×4 (03:16→22:43)
[2017-03-16] MEDS: (Novolin R) Insulin Human Regular 100 units/ml vial SC SCH ×4 (08:12→23:12)
[2017-03-16 08:39] LABS: LIPASE 139 U/L (23-300)
[2017-03-16 08:48] LABS: B-TYPE NATRIURETIC PEPTIDE 5160 pg/mL (0-450)
--- NOTE | 2017-03-16 12:55 | CP.PCM.PN ---
Subjective - Date & Time of Evaluation Date of Evaluation: 03/16/17 Time of Evaluation: 12:53 - Subjective Subjective: feels beter no abd pain pancrease improved will start feeding pt Objective - Vital Signs/Intake and Output Vital Signs (last 24 hours): Temp Pulse Resp BP Pulse Ox 97.8 F 83 16 99/57 L 100 03/16/17 10:00 03/16/17 09:55 03/16/17 09:55 03/16/17 11:25 03/16/17 09:55 - Medications Medications: Current Medications Alprazolam (Xanax) 1 mg PO HS [facility] Last Admin: 03/15/17 21:48 Dose: 1 mg Amiodarone HCl (Cordarone) 200 mg PO BID [facility] Last Admin: 03/15/17 18:15 Dose: 200 mg Amlodipine Besylate (Norvasc) 10 mg PO DAILY [facility] Last Admin: 03/15/17 10:16 Dose: Not Given Aspirin (Ecotrin) 81 mg PO DAILY [facility] Last Admin: 03/07/17 13:58 Dose: 81 mg Carvedilol (Coreg) 25 mg PO BID [facility] Last Admin: 03/15/17 18:18 Dose: 25 mg Clopidogrel Bisulfate (Plavix) 75 mg PO DAILY [facility] Last Admin: 03/15/17 09:46 Dose: 75 mg Fentanyl (Duragesic) 1 patch TD Q72H [facility] Last Admin: 03/15/17 13:10 Dose: Not Given Hydromorphone HCl (Dilaudid) 0.5 mg IVP Q6H PRN PRN Reason: Pain, moderate (4-7) Last Admin: 03/16/17 09:27 Dose: 0.5 mg Insulin Aspart (Novolog) 6 unit SC [facility] Insulin Detemir (Levemir) 14 unit SC [facility] Last Admin: 03/13/17 21:38 Dose: 14 unit Insulin Human Regular (Novolin R) 0 unit SC [facility] PRN Reason: Protocol Last Admin: 03/16/17 12:29 Dose: Not Given Isosorbide Mononitrate (Imdur) 60 mg PO DAILY [facility] Last Admin: 03/15/17 10:16 Dose: Not Given Ondansetron HCl (Zofran Inj) 4 mg IVP Q6 PRN PRN Reason: Nausea/Vomiting Sertraline HCl (Zoloft) 50 mg PO DAILY [facility] Last Admin: 03/15/17 09:46 Dose: 50 mg - Labs Labs: 03/14/17 06:37 03/15/17 17:24 PT 11.8 SECONDS (9.7-12.2) 03/10/17 08:05 INR 1.0 03/10/17 08:05 APTT 31 SECONDS (21-34) D 03/10/17 08:05 - Constitutional Appears: Non-toxic - Head Exam Head Exam: ATRAUMATIC - Eye Exam Eye Exam: Conjunctival injection - ENT Exam ENT Exam: Mucous Membranes Moist - Neck Exam Neck Exam: Full ROM - Respiratory Exam Respiratory Exam: Clear to Ausculation Bilateral - Cardiovascular Exam Cardiovascular Exam: REGULAR RHYTHM - GI/Abdominal Exam GI & Abdominal Exam: Normal Bowel Sounds - Rectal Exam Rectal Exam: NORMAL INSPECTION - Back Exam Back Exam: NORMAL INSPECTION - Psychiatric Exam Psychiatric exam: Normal Affect - Skin Skin Exam: Pallor Assessment and Plan - Assessment and Plan (Free Text) Assessment: ac pancreatitis resolved dmid cad htn Plan: if tolerating dieit d/c with home health care
--- NOTE | 2017-03-16 15:25 | CP.PCM.PN ---
Subjective - Date & Time of Evaluation Date of Evaluation: 03/16/17 Time of Evaluation: 15:24 - Subjective Subjective: renal progress note no events overnight Objective - Vital Signs/Intake and Output Vital Signs (last 24 hours): Temp Pulse Resp BP Pulse Ox 97.8 F 66 20 116/75 99 03/16/17 13:42 03/16/17 13:42 03/16/17 13:42 03/16/17 13:42 03/16/17 13:42 - Medications Medications: Current Medications Alprazolam (Xanax) 1 mg PO HS [facility] Last Admin: 03/15/17 21:48 Dose: 1 mg Amiodarone HCl (Cordarone) 200 mg PO BID [facility] Last Admin: 03/16/17 13:49 Dose: 200 mg Amlodipine Besylate (Norvasc) 10 mg PO DAILY [facility] Last Admin: 03/16/17 11:00 Dose: Not Given Aspirin (Ecotrin) 81 mg PO DAILY [facility] Last Admin: 03/07/17 13:58 Dose: 81 mg Carvedilol (Coreg) 25 mg PO BID [facility] Last Admin: 03/16/17 11:00 Dose: Not Given Clopidogrel Bisulfate (Plavix) 75 mg PO DAILY [facility] Last Admin: 03/16/17 13:48 Dose: 75 mg Fentanyl (Duragesic) 1 patch TD Q72H [facility] Last Admin: 03/15/17 13:10 Dose: Not Given Hydromorphone HCl (Dilaudid) 0.5 mg IVP Q6H PRN PRN Reason: Pain, moderate (4-7) Last Admin: 03/16/17 09:27 Dose: 0.5 mg Insulin Aspart (Novolog) 6 unit SC [facility] Insulin Detemir (Levemir) 14 unit SC [facility] Last Admin: 03/13/17 21:38 Dose: 14 unit Insulin Human Regular (Novolin R) 0 unit SC [facility] PRN Reason: Protocol Last Admin: 03/16/17 12:29 Dose: Not Given Isosorbide Mononitrate (Imdur) 60 mg PO DAILY [facility] Last Admin: 03/16/17 11:00 Dose: Not Given Ondansetron HCl (Zofran Inj) 4 mg IVP Q6 PRN PRN Reason: Nausea/Vomiting Sertraline HCl (Zoloft) 50 mg PO DAILY [facility] Last Admin: 03/16/17 13:48 Dose: 50 mg - Labs Labs: 03/14/17 06:37 03/15/17 17:24 PT 11.8 SECONDS (9.7-12.2) 03/10/17 08:05 INR 1.0 03/10/17 08:05 APTT 31 SECONDS (21-34) D 03/10/17 08:05 - Constitutional Appears: Non-toxic, No Acute Distress - Head Exam Head Exam: NORMAL INSPECTION - ENT Exam ENT Exam: Mucous Membranes Moist - Respiratory Exam Respiratory Exam: NORMAL BREATHING PATTERN - Cardiovascular Exam Cardiovascular Exam: +S1, +S2 - GI/Abdominal Exam GI & Abdominal Exam: Soft - Extremities Exam Extremities Exam: Normal Inspection - Neurological Exam Neurological Exam: Alert, Awake, Oriented x3 - Psychiatric Exam Psychiatric exam: Flat Affect - Skin Skin Exam: Dry Assessment and Plan - Assessment and Plan (Free Text) Plan: esrd/dm/htn/hyperkalemia/anemia hd extra session done yesterday, hd today per schedule dm per primary team; htn continue current meds hyperkalemia improved with hd
--- NOTE | 2017-03-16 16:35 | PN ---
LOCATION: [facility], bed A. SUBJECTIVE: This is a 36-year-old male seen and examined in rounds today without significant clinical changes with intermittent variable abdominal pain, appears to be more awake and alert. The patient is still on hemodialysis. The entire chart is reviewed including but not limited to the most recent lab and radiologic study results, current and previous medication list, current and previous medical events. Case discussed with the staff at length. It has to be mentioned that gastric pathology report showed negative for Helicobacter pylori infection. Most recent lab results showed increased serum lipase and amylase levels of 137 and today 433 that improved from the yesterday's values as the patient was ordered to be NPO. Potassium is 6.2 with BUN 37, creatinine 4.9, blood glucose level 291. The patient still has leukocytosis with low hemoglobin and hematocrit. PHYSICAL EXAMINATION GENERAL: A 36 years old male. VITAL SIGNS: Afebrile with pulse of 66, respiratory rate 20 to 22 with reported blood pressure of 110/66. HEENT: Showed pale, dry oral mucous membranes, nonicteric sclerae. LUNGS: Scattered crepitation, decreased air entry at bases. ABDOMEN: Soft. Bowel sounds are present. No mass or organomegaly. No rebound tenderness or guarding. EXTREMITIES: Show lower extremities without edematous changes. No clubbing or cyanosis. NEUROLOGIC: No reported new neurological deficits, sensory or motor. IMPRESSION: 1. Acute pancreatitis. 2. Diabetes mellitus, poorly controlled. 3. Gastritis with evidence of diabetic gastroparesis. 4. Chronic renal failure, on hemodialysis. 5. Multiple past medical history including but not limited to diabetic nephropathy, diabetic neuropathy, the patient is blind legally. 6. Known history of congestive heart failure, hypertension, coronary artery disease with history of heart attack, arrhythmias. 7. Anemia, most likely secondary to above. Further recommendations to follow. Tamiko Conde MD
--- NOTE | 2017-03-16 16:55 | CP.PCM.PN ---
Subjective - Date & Time of Evaluation Date of Evaluation: 03/16/17 Time of Evaluation: 16:52 - Subjective Subjective: Patient seen for follow-up. Last lipase level is 139. Patient now eating regular food and wants to go home. Less meds seeking and somatic. MSE- fairly developed male, oriented x 3, legally blind. mood is brighter. affect is reactive. speech is spontaneous. TP- coherent_TC- no si or hi, no psychosis, wants to go home. Attention and memory fair.Insight and Judgment limited. Impulse control fair. Objective - Vital Signs/Intake and Output Vital Signs (last 24 hours): Temp Pulse Resp BP Pulse Ox 97.6 F 78 20 137/76 100 03/16/17 15:39 03/16/17 15:39 03/16/17 15:39 03/16/17 15:39 03/16/17 15:39 Intake and Output: 03/16/17 03/16/17 06:59 18:59 Intake Total 200 Balance 200 - Medications Medications: Current Medications Alprazolam (Xanax) 1 mg PO HS [facility] Last Admin: 03/15/17 21:48 Dose: 1 mg Amiodarone HCl (Cordarone) 200 mg PO BID [facility] Last Admin: 03/16/17 13:49 Dose: 200 mg Amlodipine Besylate (Norvasc) 10 mg PO DAILY [facility] Last Admin: 03/16/17 11:00 Dose: Not Given Aspirin (Ecotrin) 81 mg PO DAILY [facility] Last Admin: 03/07/17 13:58 Dose: 81 mg Carvedilol (Coreg) 25 mg PO BID [facility] Last Admin: 03/16/17 11:00 Dose: Not Given Clopidogrel Bisulfate (Plavix) 75 mg PO DAILY [facility] Last Admin: 03/16/17 13:48 Dose: 75 mg Fentanyl (Duragesic) 1 patch TD Q72H [facility] Last Admin: 03/15/17 13:10 Dose: Not Given Hydromorphone HCl (Dilaudid) 0.5 mg IVP Q6H PRN PRN Reason: Pain, moderate (4-7) Last Admin: 03/16/17 16:01 Dose: 0.5 mg Insulin Aspart (Novolog) 6 unit SC [facility] Insulin Detemir (Levemir) 14 unit SC [facility] Last Admin: 03/13/17 21:38 Dose: 14 unit Insulin Human Regular (Novolin R) 0 unit SC [facility] PRN Reason: Protocol Last Admin: 03/16/17 12:29 Dose: Not Given Isosorbide Mononitrate (Imdur) 60 mg PO DAILY [facility] Last Admin: 03/16/17 11:00 Dose: Not Given Ondansetron HCl (Zofran Inj) 4 mg IVP Q6 PRN PRN Reason: Nausea/Vomiting Sertraline HCl (Zoloft) 50 mg PO DAILY [facility] Last Admin: 03/16/17 13:48 Dose: 50 mg - Labs Labs: 03/14/17 06:37 03/15/17 17:24 PT 11.8 SECONDS (9.7-12.2) 03/10/17 08:05 INR 1.0 03/10/17 08:05 APTT 31 SECONDS (21-34) D 03/10/17 08:05 - Constitutional Appears: Well, No Acute Distress, Chronically Ill - Head Exam Head Exam: NORMOCEPHALIC - Eye Exam Additional comments: legally blind - ENT Exam ENT Exam: Normal Exam - Neck Exam Neck Exam: Full ROM - Respiratory Exam Respiratory Exam: NORMAL BREATHING PATTERN - Cardiovascular Exam Cardiovascular Exam: REGULAR RHYTHM - GI/Abdominal Exam Additional comments: no abdominal pain, eating regular food without problems, no nausea or vomiting - Exam Additional comments: no dysuria - Extremities Exam Additional comments: has chronic neuropathic pain, a bilateral amputee - Back Exam Back Exam: NORMAL INSPECTION - Neurological Exam Neurological Exam: Alert, Awake, Oriented x3 - Psychiatric Exam Psychiatric exam: Normal Affect, Normal Mood - Skin Skin Exam: Normal Color Assessment and Plan - Assessment and Plan (Free Text) Assessment: Hx of depression, anxiety, delirium ESRD on HD, DM, neuropathy, bilateral amputee pancreatitis- resolved Plan: Continue present psych meds and pain meds. Continue dialysis tx as ordered. Psych bowens, stable for discharge to family once medically cleared.
--- NOTE | 2017-03-16 20:26 | PN ---
DATE: 03/16/2017 LOCATION: 672, bed A. SUBJECTIVE: This is a 36-year-old male seen and examined and bowels today without significant clinical changes, reported active bleeding was perirectal, mild dyspepsia and vomiting, still on hemodialysis. This went well to any *------*. Entire chart is reviewed including but not limited to most recent lab and the results current and previous medication list, current and previous medical events. Case discussed at length with staff on the floor. Today's blood glucose level of 141, that is total lab is still pending and the patient reported to have elevated potassium before. Then subsequently thereafter post dialysis, his potassium is 3.29. Today's lipase, amylase, and lipids are still pending. PHYSICAL EXAMINATION: GENERAL: A 36-year-old male. VITAL SIGNS: Afebrile with pulse of 80, respiratory rate 20 to 22, blood pressure 116/86. HEENT: Show pale, dry oral mucoid membrane. Nonicteric sclera. LUNGS: Clear to auscultation. Decreased air entry. HEART: S1 and S2. ABDOMEN: Soft. Mild generalized tenderness. No mass or organomegaly. No rebound tenderness or guarding. EXTREMITIES: No significant clubbing, cyanosis, or edema. NEUROLOGIC: No sensory or motor. IMPRESSION: 1. Acute pancreatitis, today's labs is still pending. 2. Exacerbation of peptic ulcer disease with diabetic gastroparesis. 3. Poorly-controlled diabetes mellitus. 4. Poorly-controlled hypertension. 5. Chronic renal failure, on hemodialysis. 6. Anemia secondary to above. 7. Atrial tachycardia with flutter. PLAN: 1. Continue current management. 2. Keep the patient n.p.o. until serum lipase and amylase level are normal or near normal. 3. Prefer hyperalimentation. 4. Further recommendation to follow with Dr. Daija Kan. Tamiko Conde MD
[2017-03-17] MEDS: HYDROmorphone 0.5 mg/0.5 ml ISec IVP PRN ×3 (04:58→17:51)
[2017-03-17 08:13] LABS: AMYLASE 110 U/L (30-110); LIPASE 167 U/L (23-300)
[2017-03-17] MEDS: (Novolin R) Insulin Human Regular 100 units/ml vial SC SCH ×4 (08:36→22:02)
--- NOTE | 2017-03-17 11:12 | CP.PCM.PN ---
Subjective - Date & Time of Evaluation Date of Evaluation: 03/17/17 Time of Evaluation: 11:10 - Subjective Subjective: still have abd pain and back pain tolerating diet bs va Objective - Vital Signs/Intake and Output Vital Signs (last 24 hours): Temp Pulse Resp BP Pulse Ox 97.6 F 74 18 103/66 97 03/17/17 07:45 03/17/17 09:30 03/17/17 07:45 03/17/17 09:33 03/17/17 07:45 Intake and Output: 03/17/17 03/17/17 06:59 18:59 Intake Total 240 Balance 240 - Medications Medications: Current Medications Alprazolam (Xanax) 1 mg PO HS [facility] Last Admin: 03/16/17 22:43 Dose: 1 mg Amiodarone HCl (Cordarone) 200 mg PO BID [facility] Last Admin: 03/17/17 09:33 Dose: 200 mg Amlodipine Besylate (Norvasc) 10 mg PO DAILY [facility] Last Admin: 03/17/17 09:33 Dose: Not Given Aspirin (Ecotrin) 81 mg PO DAILY [facility] Last Admin: 03/07/17 13:58 Dose: 81 mg Carvedilol (Coreg) 25 mg PO BID [facility] Last Admin: 03/17/17 09:33 Dose: Not Given Clopidogrel Bisulfate (Plavix) 75 mg PO DAILY [facility] Last Admin: 03/17/17 09:33 Dose: 75 mg Fentanyl (Duragesic) 1 patch TD Q72H [facility] Last Admin: 03/15/17 13:10 Dose: Not Given Hydromorphone HCl (Dilaudid) 0.5 mg IVP Q6H PRN PRN Reason: Pain Insulin Aspart (Novolog) 6 unit SC [facility] Insulin Detemir (Levemir) 14 unit SC [facility] Last Admin: 03/13/17 21:38 Dose: 14 unit Insulin Human Regular (Novolin R) [address] [facility] PRN Reason: Protocol Last Admin: 03/17/17 08:36 Dose: 3 unit Isosorbide Mononitrate (Imdur) 60 mg PO DAILY [facility] Last Admin: 03/17/17 09:33 Dose: Not Given Ondansetron HCl (Zofran Inj) 4 mg IVP Q6 PRN PRN Reason: Nausea/Vomiting Sertraline HCl (Zoloft) 50 mg PO DAILY [facility] Last Admin: 03/17/17 09:33 Dose: 50 mg - Labs Labs: 03/14/17 06:37 03/15/17 17:24 PT 11.8 SECONDS (9.7-12.2) 03/10/17 08:05 INR 1.0 03/10/17 08:05 APTT 31 SECONDS (21-34) D 03/10/17 08:05 - Constitutional Appears: Confused - Head Exam Head Exam: NORMAL INSPECTION - Eye Exam Eye Exam: Conjunctival injection - ENT Exam ENT Exam: Mucous Membranes Moist - Neck Exam Neck Exam: Full ROM - Respiratory Exam Respiratory Exam: Decreased Breath Sounds, Clear to Ausculation Bilateral - Cardiovascular Exam Cardiovascular Exam: REGULAR RHYTHM - GI/Abdominal Exam GI & Abdominal Exam: Tenderness, Normal Bowel Sounds - Rectal Exam Rectal Exam: NORMAL INSPECTION - Back Exam Back Exam: CVA tenderness (L) - Psychiatric Exam Psychiatric exam: Normal Affect - Skin Skin Exam: Dry, Pallor Assessment and Plan - Assessment and Plan (Free Text) Assessment: s/p ac pancreatitislipas inc will repeat cont diet inc insulin if beter may d/c soon Plan: as per orders
[2017-03-18] MEDS: HYDROmorphone 0.5 mg/0.5 ml ISec IVP PRN ×3 (00:03→12:57)
[2017-03-18] MEDS: (Novolin R) Insulin Human Regular 100 units/ml vial SC SCH ×3 (08:15→16:57)
[2017-03-18 08:47] VITALS: RESP 18; O2SAT 100
--- NOTE | 2017-03-18 11:42 | CP.PCM.PN ---
Subjective - Date & Time of Evaluation Date of Evaluation: 03/18/17 Time of Evaluation: 11:00 - Subjective Subjective: Appears comfortable supine Objective - Vital Signs/Intake and Output Vital Signs (last 24 hours): Temp Pulse Resp BP Pulse Ox 97.5 F L 56 L 18 134/78 100 03/18/17 07:35 03/18/17 10:39 03/18/17 07:35 03/18/17 10:39 03/18/17 07:35 Intake and Output: 03/18/17 03/18/17 06:59 18:59 Intake Total 360 Balance 360 - Medications Medications: Current Medications Alprazolam (Xanax) 1 mg PO HS [facility] Last Admin: 03/17/17 22:42 Dose: 1 mg Amiodarone HCl (Cordarone) 200 mg PO BID [facility] Last Admin: 03/17/17 17:52 Dose: 200 mg Aspirin (Ecotrin) 81 mg PO DAILY [facility] Last Admin: 03/07/17 13:58 Dose: 81 mg Carvedilol (Coreg) 25 mg PO BID [facility] Last Admin: 03/17/17 17:52 Dose: 25 mg Clopidogrel Bisulfate (Plavix) 75 mg PO DAILY [facility] Last Admin: 03/18/17 10:43 Dose: 75 mg Fentanyl (Duragesic) 1 patch TD Q72H [facility] Last Admin: 03/15/17 13:10 Dose: Not Given Hydromorphone HCl (Dilaudid) 0.5 mg IVP Q6H PRN PRN Reason: Pain Last Admin: 03/18/17 06:50 Dose: 0.5 mg Insulin Aspart (Novolog) 6 unit SC [facility] Insulin Detemir (Levemir) 14 unit SC [facility] Last Admin: 03/13/17 21:38 Dose: 14 unit Insulin Human Regular (Novolin R) 0 unit SC [facility] PRN Reason: Protocol Last Admin: 03/18/17 08:15 Dose: 3 unit Isosorbide Mononitrate (Imdur) 60 mg PO DAILY [facility] Last Admin: 03/18/17 10:43 Dose: 60 mg Ondansetron HCl (Zofran Inj) 4 mg IVP Q6 PRN PRN Reason: Nausea/Vomiting Sertraline HCl (Zoloft) 50 mg PO DAILY [facility] Last Admin: 07/17/17 10:43 Dose: 50 mg - Labs Labs: 03/14/17 06:37 03/15/17 17:24 PT 11.8 SECONDS (9.7-12.2) 03/10/17 08:05 INR 1.0 03/10/17 08:05 APTT 31 SECONDS (21-34) D 03/10/17 08:05 - Respiratory Exam Respiratory Exam: NORMAL BREATHING PATTERN Additional comments: Lungs clear - Cardiovascular Exam Cardiovascular Exam: REGULAR RHYTHM - Extremities Exam Additional comments: B/L BKA Assessment and Plan - Assessment and Plan (Free Text) Assessment: ESRD on maintenance HD HTN CAD,IDDM,PVD Plan: Stable on dialysis Continue HD per schedule . Monitor K+
--- NOTE | 2017-03-18 13:36 | CP.PCM.PN ---
Subjective - Date & Time of Evaluation Date of Evaluation: 03/18/17 Time of Evaluation: 13:33 - Subjective Subjective: Events noted Now NSR on TELE; Bradycardia ASX; no cp or SOB, no dizziness, no N/V/D Objective - Vital Signs/Intake and Output Vital Signs (last 24 hours): Temp Pulse Resp BP Pulse Ox 97.5 F L 74 18 159/71 H 100 03/18/17 07:35 03/18/17 12:56 03/18/17 07:35 03/18/17 12:56 03/18/17 07:35 Intake and Output: 03/18/17 03/18/17 06:59 18:59 Intake Total 360 Balance 360 - Medications Medications: Current Medications Alprazolam (Xanax) 1 mg PO [facility] Last Admin: 03/17/17 22:42 Dose: 1 mg Amiodarone HCl (Cordarone) 200 mg PO BID [facility] Last Admin: 03/18/17 12:03 Dose: 200 mg Aspirin (Ecotrin) 81 mg PO DAILY [facility] Last Admin: 03/07/17 13:58 Dose: 81 mg Carvedilol (Coreg) 25 mg PO BID [facility] Clopidogrel Bisulfate (Plavix) 75 mg PO DAILY [facility] Last Admin: 03/18/17 10:43 Dose: 75 mg Fentanyl (Duragesic) 1 patch TD Q72H [facility] Last Admin: 03/18/17 12:48 Dose: Not Given Hydromorphone HCl (Dilaudid) 0.5 mg IVP Q6H PRN PRN Reason: Pain Last Admin: 03/18/17 12:57 Dose: 0.5 mg Insulin Aspart (Novolog) 6 unit SC [facility] Insulin Detemir (Levemir) 14 unit SC [facility] Last Admin: 03/13/17 21:38 Dose: 14 unit Insulin Human Regular (Novolin R) [address] [facility] PRN Reason: Protocol Last Admin: 03/18/17 12:37 Dose: 6 unit Isosorbide Mononitrate (Imdur) 60 mg PO DAILY [facility] Last Admin: 03/18/17 10:43 Dose: 60 mg Ondansetron HCl (Zofran Inj) 4 mg IVP Q6 PRN PRN Reason: Nausea/Vomiting Sertraline HCl (Zoloft) 50 mg PO DAILY [facility] Last Admin: 03/18/17 10:43 Dose: 50 mg - Labs Labs: 03/14/17 06:37 03/15/17 17:24 PT 11.8 SECONDS (9.7-12.2) 03/10/17 08:05 INR 1.0 03/10/17 08:05 APTT 31 SECONDS (21-34) D 03/10/17 08:05 - Head Exam Head Exam: ATRAUMATIC, NORMAL INSPECTION, NORMOCEPHALIC - Eye Exam Eye Exam: absent: Normal appearance - Respiratory Exam Respiratory Exam: Clear to Ausculation Bilateral, NORMAL BREATHING PATTERN. absent: Rhonchi, Wheezes - Cardiovascular Exam Cardiovascular Exam: REGULAR RHYTHM, +S1, +S2, Murmur. absent: Gallop, +S4 - GI/Abdominal Exam GI & Abdominal Exam: Soft, Normal Bowel Sounds. absent: Tenderness - Extremities Exam Extremities Exam: absent: Normal Inspection (b/l BKA) - Skin Skin Exam: Normal Color, Warm Assessment and Plan - Assessment and Plan (Free Text) Assessment: CAD: hx of CABG and subsequent stent; patient CAD status is stable and should be medically treated wth Coreg,IMDUR/Statin. He has had normal LV function with chronic diastolic dysfunction. EKG: read by me: Aflutter 2:[address] chages, LVH and LAE * LDL goal 50-70 * Diabetic control * ASA, Coreg, Imdur, ranexa * No active cardiac sx's; cont medical therapy. * Cont volume removal with HD HTN: labile Continue medical treatment as prescribed BP is labile on max doses of coreg, Norvasc, add hydralazine or minoxidil 2.5 daily in addition if needed. AFLUTTER: now NSR; noted sinus zaida; REDUCE AMIODARONE TO 200 [facility] Appreciate EP consultation: Atrial tachycardia & AFLUTTER to be treated with amiodarone. Given GI bleed patient at risk for high intensity DAPT and coumadin for stroke prevention. Will defer any ablation until or unless clinically significant or uncontrollable arrythmia. * Currently anemia hgb improved: If high risk for GI bleed suggest ASA 81 and plavix only. DM: labile: Cont medical rx continued education and counseling management per primary team PAD: S/P B/L BKA ASX No signs of ulcer or wound dehiscence ESRD: Stable chem cont maintainence HD, Monitor lytes d/c PLANNING
[2017-03-18 16:58] VITALS: BP 138/77; PULSE 54; TEMP 97.7
--- NOTE | 2017-03-18 17:39 | CP.PCM.PN ---
Subjective - Date & Time of Evaluation Date of Evaluation: 03/18/17 Time of Evaluation: 11:00 - Subjective Subjective: awake, alert, no nausea or vomiting. Objective - Vital Signs/Intake and Output Vital Signs (last 24 hours): Temp Pulse Resp BP Pulse Ox 97.7 F 54 L 18 138/77 100 03/18/17 15:57 03/18/17 15:57 03/18/17 15:57 03/18/17 15:57 03/18/17 15:57 Intake and Output: 03/18/17 03/18/17 06:59 18:59 Intake Total 360 400 Balance 360 400 - Medications Medications: Current Medications Alprazolam (Xanax) 1 mg PO HS [facility] Last Admin: 03/17/17 22:42 Dose: 1 mg Amiodarone HCl (Cordarone) 200 mg PO QD5 [facility] Aspirin (Ecotrin) 81 mg PO DAILY [facility] Last Admin: 03/07/17 13:58 Dose: 81 mg Carvedilol (Coreg) 25 mg PO BID [facility] Clopidogrel Bisulfate (Plavix) 75 mg PO DAILY [facility] Last Admin: 03/18/17 10:43 Dose: 75 mg Fentanyl (Duragesic) 1 patch TD Q72H [facility] Last Admin: 03/18/17 12:48 Dose: Not Given Hydromorphone HCl (Dilaudid) 0.5 mg IVP Q6H PRN PRN Reason: Pain Last Admin: 03/18/17 12:57 Dose: 0.5 mg Insulin Aspart (Novolog) 6 unit SC [facility] Insulin Detemir (Levemir) 14 unit SC [facility] Last Admin: 03/13/17 21:38 Dose: 14 unit Insulin Human Regular (Novolin R) [address] [facility] PRN Reason: Protocol Last Admin: 03/18/17 16:57 Dose: 8 unit Isosorbide Mononitrate (Imdur) 60 mg PO DAILY [facility] Last Admin: 03/18/17 10:43 Dose: 60 mg Ondansetron HCl (Zofran Inj) 4 mg IVP Q6 PRN PRN Reason: Nausea/Vomiting Sertraline HCl (Zoloft) 50 mg PO DAILY [facility] Last Admin: 03/18/17 10:43 Dose: 50 mg - Labs Labs: 03/14/17 06:37 03/15/17 17:24 PT 11.8 SECONDS (9.7-12.2) 03/10/17 08:05 INR 1.0 03/10/17 08:05 APTT 31 SECONDS (21-34) D 03/10/17 08:05 Assessment and Plan - Assessment and Plan (Free Text) Assessment: Patient is seen and examined. Awake, alert, tolerating diet. No sob or chest pains or abdominal pains. D/W DR Li, discharge plan to home for today. Prescription given for xanax and dilaudid for 1 week. Will continue rest of the medications as before. To continue with HD as scheduled. F/U with PMD in 1 week. Advised to advance diet as tolerated at home.
--- NOTE | 2017-03-18 17:43 | PCM.HF ---
Heart Failure Core Measure - Heart Failure Ejection Fraction: 40 % or Greater (EF 65-70%) RAÚL Inhibitor Prescribed: No Contraindication/Reason for not providing: ESRD Beta-Andrew Prescribed: Carvedilol Angiotensin II Receptor Andrew Prescribed: No Contraindication/Reason for not providing: ESRD AnticoagulationTherapy for Atrial Fibrillation/Atrialflutter: No Contraindication/Reason for not providing: not a candidate for anticoagulation/ risk bleeding Aldosterone Antagonist Prescribed: No Contraindication/Reason for not providing: EF >40% Hydralazine Nitrate Prescribed: Yes Implantable Cardioverter Defibrillator Therapy: No Contraindication/Reason for not providing: EF >40% Cardiac Resynchronization Therapy Prescribed: No Contraindication/Reason for not providing: not indicated - Follow up Will be discharged to: Home Follow Up Date (must be within 7 days from discharge): 03/25/17 Follow Up Time: 09:00
--- NOTE | 2017-03-18 20:26 | PN ---
DATE: 03/03/2017 LOCATION: 672, bed A. SUBJECTIVE: This is 36 years old male, seen and examined around early today without significant clinical changes for reported active bleeding was reported, hypotension recently. The entire chart is reviewed including, but not limited to the most recent lab and radiological results, current and previous medication list, current and previous medical events, case discussed at length with the staff on the floor. It has to be mentioned that the patient still has a period of mild nausea with dyspepsia, but much more comfortable than before. Most recent lab results show blood glucose level of 346 today and increased creatinine to 2.4 with normal serum lipase level as *------*. PHYSICAL EXAMINATION VITAL SIGNS: A 36-year-old male, afebrile with pulse 58 and blood pressure 130/72, respiratory rate reported to be 20 to 22. HEENT: Showed pale, dry oral mucous membrane. Nonicteric sclera. LUNGS: Few scattered crepitation. Decreased air entry at bases. HEART: Positive S1 and S2. ABDOMEN: Soft. Bowel sounds are present with slight distention and mild generalized tenderness. No rebound tenderness or guarding. RECTAL: *------*. EXTREMITIES: No significant clubbing, cyanosis, or edema. NEUROLOGIC: No neurological deficits, sensory or motor. IMPRESSION: 1. Acute pancreatitis, improving clinically and biochemically. 2. Re-exacerbation of peptic ulcer disease with diabetic gastroparesis. 3. History of chronic renal failure, on hemodialysis. 4. Poorly-controlled diabetes mellitus. 5. Reported the patient's history of atrial tachycardia and flutter. 6. Anemia secondary to above most likely. SUGGESTION. 1. Continue current management. 2. Adjust oral intake. 3. Followup serum lipase, amylase. Tamiko Conde MD
--- NOTE | 2017-03-19 14:46 | DS ---
SUBJECTIVE: He came into the emergency room with chest pain and he was having blood sugar of 846 and he did have nonspecific ST abnormalities. He is a 36-year-old male who was diabetic since and end-stage renal failure, on dialysis and status post coronary artery bypass graft and he did have some feeling of dizziness, light headedness, and his vital signs at that time; his blood pressure was 197/58, he was afebrile, his pulse was 78. His blood work was white count of 12, 9 of hemoglobin, and the blood sugar went up to 1036, his BUN is 78, creatinine 8.6. Patient was evaluated for ICU, but he was admitted to the floor. He was seen by Dr. 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 He was seen by Dr. Michaels for his chest pain and there was no new changes. He was covered with his medications. He was seen also by Dr. Mckinnon at bedside. He was complaining of pain at the site of the catheter. Dr. Mckinnon did put an I and D. He has an I and D done for him for chest abscess and he was following him for changing the dressing ------. He was covered with antibiotics as well. He was having abdominal pain and vomiting on and off. His white count came down to 13. His sugar came down to 152 and he was improving with dialysis. On 02/27/2017, the patient was stable, more comfortable and he was seen by the nurse practitioner and he was discharged to continue all his medications. His last lab was 13 white count, sugar was 152 and his examination was unremarkable for any new issues or discomfort. FINAL DIAGNOSES: Acute chest pain; uncontrolled diabetes mellitus, insulin dependent, end-stage renal failure; anemia; abdominal pain; gastritis; chronic obstructive pulmonary disease status post coronary bypass, status post amputation; hypertension uncontrolled, and we will followup in the office. Sybil Li MD cc:
--- NOTE | 2017-03-19 16:31 | CON ---
DATE: 03/08/2017 CONSULTING PHYSICIAN: Sybil Li MD I was called for GI consultation by the admitting MD. The patient was seen and fully examined on 03/08/2017. Written short consultation sheet was provided, and due to the dictation dysfunction at that time, this consultation is dictated now. The entire chart is reviewed including but not limited to the most recent lab and radiologic study results, current and the previous medication list, current and the previous medical events as well as allergy to medication list. This is a 36-year-old male who was admitted to the hospital through the emergency room with sudden onset of chest pain, nausea and vomiting, generalized weakness and malaise, who was found to have episodes of hyperglycemia before, with poorly controlled diabetes mellitus. The patient is an old case for me from previous admissions, was found to have guaiac positive stool. PAST MEDICAL HISTORY: Including but not limited to: 1. Poorly controlled diabetes mellitus. 2. Peptic ulcer disease. 3. Diabetic gastroparesis. 4. Anemia. 5. Bronchial asthma. 6. History of COPD, depression and the gastric ulcer before as well as hypertension and hyperlipidemia with thyroid disorder, and end stage renal disease by history. CURRENT MEDICATION: Medication list were reviewed. SURGICAL HISTORY: Status post cholecystectomy, coronary artery disease with cardiac stent insertion , status post CABG. FAMILY HISTORY: Unknown. SOCIAL HISTORY: No recent history of cigarette smoking or alcohol intake. After being admitted to the hospital, the patient was found to have initially low hemoglobin of 10.9 with ------ 16.0. Increased blood glucose level to 299, increased BUN of 32 and creatinine 4.1. PHYSICAL EXAMINATION: GENERAL: A 36-year-old male, blind legally. VITAL SIGNS: Afebrile with pulse of 102, respiratory rate 18 to 20, with blood pressure 170/64. HEENT: Showed pale, dry oral mucoid membrane. Nonicteric sclerae. LYMPH NODES: No lymphadenitis or lymphadenopathy. HEART: Positive S1 and S2 with increased rate. LUNGS: Reveal scattered crepitations, with decreased air entry at bases. ABDOMEN: Soft, bowel sounds are present with mild generalized tenderness. No masses or organomegaly. No rebound tenderness or guarding. RECTAL EXAMINATION: The patient refused. EXTREMITIES: Significant clubbing or cyanosis, but with mild edematous changes. NEUROLOGIC: No reported new neurological deficits, sensory or motor. IMPRESSION: 1. Poorly controlled diabetes mellitus. 2. Diabetic gastroparesis. 3. Re-exacerbation of peptic ulcer disease. 4. Rule out acute pancreatitis ------ disorder. 5. Rule out re-exacerbation of gastric ulcer with possible gastrointestinal blood loss. 6. Multiple complicated past medical history including but not limited to hypertension, congestive heart failure, end-stage renal disease, diabetic retinopathy, diabetic nephropathy, hypertension, coronary artery disease with congestive heart failure. SUGGESTION: 1. Agree with your plan. 2. Serum lipase and amylase level. 3. Abdominal ultrasound. 4. May add Reglan IV, but Zofran to be stopped ------ Zofran to be given IV. 5. Upper endoscopy when the patient is more stable clinically. Proton pump inhibitors. Thank you for letting me to participate in your patient case management. Further recommendation and evaluation to follow. It should be mentioned that this case was discussed extensively with Dr. Li after the patient was fully examined on 03/08/2017. Tamiko Conde MD
--- NOTE | 2017-03-20 14:14 | DS ---
HISTORY OF PRESENT ILLNESS: He came in, while he was having dialysis, he started to have vomiting. He was short of breath. His sugar was high. He was admitted and started on diabetes monitoring and Zofran, and he had blood work done. His blood sugar was initially 450 something and his blood pressure was 168/100 something. By the time he was admitted, he became hypertensive and we hold all his medications for his blood pressure. He was on oxygen. He has temperature of 97.9 and his blood pressure as I said was *------*. His hemoglobin was 9.7/29, his sugar was 473, and his BUN and creatinine were 72/7.5. He had hemodialysis. His potassium was very high at 6.4, so he has dialysis to get rid of this, his proBNP was 3408, and his total protein was 7.7. His sugar improved to 129 with the monitoring and coverage and after the dialysis, his potassium improved. He was feeling better and he was discharged home with home healthcare with all his medications as same ordered and he will be seen in my office for followup after one week. FINAL DIAGNOSES: 1. Vomiting. 2. Coronary artery disease. 3. End-stage renal failure. 4. Hyperkalemia. 5. Anemia. Sybil Li MD
== END 2017-03-18 17:55 | disposition home health service (06) | DRG 544 ==
LOC: C.ER 18:36 → C.9E 21:08 → C.6T 21:55
PROVIDERS: ADMIT Internal Medicine; ATTEND Internal Medicine
PROC: 5A1D60Z (ICD-10-PCS; principal; 2017-03-05)
PROC: 0DJ08ZZ Inspection of Upper Intestinal Tract, Via Natural or Artificial Opening Endoscopic (ICD-10-PCS; 2017-03-12)
PROC: 0DB68ZX Excision of Stomach, Via Natural or Artificial Opening Endoscopic, Diagnostic (ICD-10-PCS; 2017-03-13)
DX: I48.3 Typical atrial flutter (principal); N18.6 End stage renal disease; G93.41 Metabolic encephalopathy; I13.2 Hypertensive heart and chronic kidney disease with heart failure and with stage 5 chronic kidney disease, or end stage renal disease; K31.84 Gastroparesis; E10.22 Type 1 diabetes mellitus with diabetic chronic kidney disease; E10.40 Type 1 diabetes mellitus with diabetic neuropathy, unspecified; E10.51 Type 1 diabetes mellitus with diabetic peripheral angiopathy without gangrene; I50.9 Heart failure, unspecified; F11.20 Opioid dependence, uncomplicated; E87.5 Hyperkalemia; J44.9 Chronic obstructive pulmonary disease, unspecified; E10.621 Type 1 diabetes mellitus with foot ulcer; K85.90 Acute pancreatitis without necrosis or infection, unspecified; I95.3 Hypotension of hemodialysis; G30.9 Alzheimer's disease, unspecified; F02.80 Dementia in other diseases classified elsewhere, unspecified severity, without behavioral disturbance, psychotic disturbance, mood disturbance, and anxiety; F33.9 Major depressive disorder, recurrent, unspecified; I47.1 Supraventricular tachycardia; E03.9 Hypothyroidism, unspecified; D63.1 Anemia in chronic kidney disease; E78.00 Pure hypercholesterolemia, unspecified; E78.5 Hyperlipidemia, unspecified; E10.65 Type 1 diabetes mellitus with hyperglycemia; F41.9 Anxiety disorder, unspecified; I48.91 Unspecified atrial fibrillation; I25.10 Atherosclerotic heart disease of native coronary artery without angina pectoris; K29.80 Duodenitis without bleeding; G40.909 Epilepsy, unspecified, not intractable, without status epilepticus; M19.90 Unspecified osteoarthritis, unspecified site; G89.4 Chronic pain syndrome; G47.00 Insomnia, unspecified; H54.8 Legal blindness, as defined in USA; Q98.4 Klinefelter syndrome, unspecified; Z79.4 Long term (current) use of insulin; Z95.1 Presence of aortocoronary bypass graft; I25.2 Old myocardial infarction; Z86.73 Personal history of transient ischemic attack (TIA), and cerebral infarction without residual deficits; Z87.01 Personal history of pneumonia (recurrent); Z87.11 Personal history of peptic ulcer disease; Z89.511 Acquired absence of right leg below knee; Z89.512 Acquired absence of left leg below knee; Z90.49 Acquired absence of other specified parts of digestive tract; Z91.11 Patient's noncompliance with dietary regimen; Z91.19 Patient's noncompliance with other medical treatment and regimen; Z95.5 Presence of coronary angioplasty implant and graft; Z99.2 Dependence on renal dialysis

== ENCOUNTER 2017-03-29 12:01 | Inpatient (IN) | payer OTHER ==
[2017-03-29 12:02] VITALS: PULSE 66; BMI 20.7
[2017-03-29 12:37] LABS: BASO # 0.1 K/uL (0.0-0.2); BASO % 0.7 % (0.0-2.0); EOS # 0.9 K/uL (0.0-0.7); EOS % 6.4 % (0.0-4.0); LYMPH % 14.5 % (20.0-40.0); MEAN CELL VOLUME 88.7 fL (80.0-94.0); MEAN CORPUSCULAR HEMOGLOBIN 27.7 pg (27.0-31.0); MEAN CORPUSCULAR HGB CONC 31.2 g/dL (33.0-37.0); MEAN PLATELET VOLUME 9.5 fL (7.2-11.7); MONO # 0.7 K/uL (0.0-0.8); MONO % 4.7 % (0.0-10.0); RED CELL DISTRIBUTION WIDTH 20.3 % (11.5-14.5); WHITE BLOOD COUNT 14.1 K/uL (4.8-10.8)
--- NOTE | 2017-03-29 12:37 | C.PDOC ---
History Of Present Illness 36 y/o male, with PMHx of ESRD on hemodialysis, presents to the ED for evaluation of shortness of breath. Pt states he missed his dialysis yesterday due to diarrhea. Pt arrives tolerating nc. and was found to have elevated blood pressure. Otherwise, denies any chest pain, dizziness, lightheadedness, or any other associated symptoms at this time. Time Seen by Provider: 03/29/17 12:06 Chief Complaint (Nursing): Abdominal Pain History Per: Patient History/Exam Limitations: no limitations Onset/Duration Of Symptoms: Hrs Current Symptoms Are (Timing): Still Present Severity: None Pain Scale Rating Of: 0 Exacerbating Factors: None Alleviating Factors: None Recent travel outside of the [place]: No Additional History Per: Patient Past Medical History Reviewed: Historical Data, Nursing Documentation, Vital Signs Vital Signs: Last Vital Signs Temp 97.8 F 03/29/17 15:45 Pulse 71 03/29/17 16:30 Resp 18 03/29/17 16:30 BP 149/86 03/29/17 16:30 Pulse Ox 99 03/29/17 16:30 - Medical History PMH: Alzheimer's Disease, Anemia, Anxiety, Arthritis, Asthma, Atrial Fibrillation, Bronchitis, CAD, Cardia Arrhythmia, CHF, COPD, CVA, Depression, Diabetes, Deep Vein Thrombosis, Gastrointestinal Ulcer, Gall Bladder Disease, HTN, Hypercholesterolemia, Hypothyroidism, Pneumonia, End Stage Renal Disease, Chronic Kidney Disease, Seizures Denies: Hyperthyroidism, Sexually Transmitted Disease Surgical History: CABG (12/2009), Cholecystectomy (2011), Coronary Stent - [facility] Procedures ABDOMINAL WALL SINOGRAM (12/31/13) C.A.T. SCAN OF ABDOMEN (10/31/13) CENTRAL VENOUS CATHETER PLACEMENT WITH GUIDANCE (02/10/15) DILATE R ANT TIB ART W DRUG-ELUT INTRALUM, PERC (08/12/15) DILATION OF LEFT FEMORAL ARTERY, PERCUTANEOUS APPROACH (07/04/16) DILATION OF RIGHT FEMORAL ARTERY, PERCUTANEOUS APPROACH (08/12/15) DILATION OF RIGHT POPLITEAL ARTERY, PERCUTANEOUS APPROACH (08/12/15) DX ULTRASOUND-HEART (01/05/13) ENTERAL INFUSION OF CONCENTRATED NUT. SUBSTANCES (06/28/13) EXCIS DEBRIDE OF WOUND, INFECT, OR BURN (08/03/14) EXCISION OF STOMACH, ENDO, DIAGN (03/03/17) EXTIRPATION OF MATTER FROM L FEM ART, PERC APPROACH (07/04/16) EXTIRPATION OF MATTER FROM R FEM ART, PERC APPROACH (08/12/15) EXTIRPATION OF MATTER FROM R POPL ART, PERC APPROACH (08/12/15) FLUOROSCOPY OF L LOW EXTREM ART USING L OSM CONTRAST (08/12/15) FLUOROSCOPY OF R LOW EXTREM ART USING L OSM CONTRAST (08/12/15) FREE SKIN GRAFT NEC (08/03/14) HEAD SOFT TISS X-RAY NEC (04/15/13) HEMODIALYSIS (04/28/15) INCIS W REM OF FORIEGN BODY OR DEV FROM SKIN & SUBCUT TISSUE (08/08/13) INSERTION OF INFUSION DEV INTO R SUBCLAV VEIN, PERC APPROACH (01/19/16) INSERTION OF INFUSION DEV INTO SUP VENA CAVA, PERC APPROACH (02/20/17) INSPECTION OF UPPER INTESTINAL TRACT, ENDO (03/03/17) INTRODUCE OF OTH THROMBOLYTIC INTO PERIPH ART, PERC APPROACH (08/12/15) LAPAROSCOPIC CHOLECYSTECTOMY (09/21/13) LOC EXC LES METATAR/TAR (06/01/14) PACKED CELL TRANSFUSION (06/01/14) PERCUTAN LIVER ASPIRAT (12/31/13) PERFORMANCE OF URINARY FILTRATION, MULTIPLE (03/03/17) PERFORMANCE OF URINARY FILTRATION, SINGLE (12/18/16) SKIN & SUBQ INCISION NEC (10/24/14) TETANUS TOXOID ADMINIST (06/13/14) ULTRASONOGRAPHY OF SUPERIOR VENA CAVA, GUIDANCE (02/20/17) VENOUS CATHETERIZATION FOR RENAL DIALYSIS (08/08/13) VENOUS CATHETERIZATION NEC (04/30/13) Family History: States: Unknown Family Hx - Social History Hx Tobacco Use: No Hx Alcohol Use: No Hx Substance Use: No - Immunization History Hx Tetanus Toxoid Vaccination: Yes Hx Influenza Vaccination: No Hx Pneumococcal Vaccination: Yes Review Of Systems Except As Marked, All Systems Reviewed And Found Negative. Constitutional: Negative for: Fever, Chills Cardiovascular: Negative for: Chest Pain, Palpitations, Light Headedness Respiratory: Positive for: Shortness of Breath. Negative for: Cough, Hemoptysis , Sputum Gastrointestinal: Negative for: Nausea, Vomiting, Abdominal Pain Neurological: Negative for: Headache, Dizziness Physical Exam - Physical Exam Appears: Non-toxic, No Acute Distress Skin: Normal Color, Warm, Dry Head: Atraumatic, Normacephalic Neck: Normal ROM, Supple Chest: Symmetrical, No Tenderness Cardiovascular: Rhythm Regular, No Murmur Respiratory: Decreased Breath Sounds (diminished breath sounds R>L) Extremity: Bilateral: Atraumatic, Normal ROM Neurological/Psych: Oriented x3, Normal Speech, Normal Cognition ED Course And Treatment - Laboratory Results Result Diagrams: 03/29/17 12:33 03/29/17 13:10 ECG: Interpreted By Me, Viewed By Me ECG Rhythm: Sinus Rhythm ECG Interpretation: No Changes From Prior Interpretation Of ECG: LVH Rate From EC (bpm) Medical Decision Making Medical Decision Making: EKG, CXR, blood work, urinalysis ordered and reviewed arrangements with with dr lam for hd. updated dr quintanilla. 300: ct neg, labs show mild hyperkalemia, arrangement made for hd. dr chaudhry accepts. . Disposition - Disposition Disposition: HOSPITALIZED Disposition Time: 04:00 Condition: STABLE - Clinical Impression Clinical Impression: ESRD (end stage renal disease), Abdominal pain - Scribe Statement The provider has reviewed the documentation as recorded by the Marlonibrigoberto Tavera All medical record entries made by the Marlonibrigoberto were at my direction and personally dictated by me. I have reviewed the chart and agree that the record accurately reflects my personal performance of the history, physical exam, medical decision making, and the department course for this patient. I have also personally directed, reviewed, and agree with the discharge instructions and disposition.
--- NOTE | 2017-03-29 13:13 | RAD ---
PROCEDURE: CHEST RADIOGRAPH, 1 VIEW HISTORY: chest pain COMPARISON: 02/20/2017 FINDINGS: LUNGS: Clear. PLEURA: No pneumothorax or pleural fluid seen. CARDIOVASCULAR: Cardiomegaly. No evidence of acute, significant cardiovascular disease. Venous access catheter in stable, satisfactory position. Incidental Finding(s): Postoperative changes related to sternotomy. OSSEOUS STRUCTURES: No significant abnormalities. VISUALIZED UPPER ABDOMEN: Normal. OTHER FINDINGS: None. IMPRESSION: No active disease. No acute/significant interval changes.
[2017-03-29 13:56] LABS: BILIRUBIN,TOTAL 0.6 mg/dL (0.2-1.3); POTASSIUM 5.8 mmol/L (3.6-5.2); TOTAL PROTEIN 6.9 g/dL (6.3-8.3)
[2017-03-29 13:57] LABS: CALCIUM 8.4 mg/dl (8.6-10.4)
[2017-03-29 14:07] LABS: TROPONIN I 0.014 ng/mL (0.00-0.120)
--- NOTE | 2017-03-29 15:10 | CT ---
PROCEDURE: CT Abdomen and Pelvis without Oral or IV contrast. HISTORY: abd pain COMPARISON: Abdominal ultrasound performed 03/13/17 TECHNIQUE: Contiguous axial images of the abdomen and pelvis. No oral or IV contrast administered. Coronal and Sagittal reformats generated and reviewed. Radiation dose: Total exam DLP = 333.88 mGy-cm. This CT exam was performed using one or more of the following dose reduction techniques: Automated exposure control, adjustment of the mA and/or kV according to patient size, and/or use of iterative reconstruction technique. FINDINGS: There is limited evaluation of the solid organs without the administration of IV contrast. LOWER THORAX: Persistent chronic left lower lobe consolidation. No visible pleural effusion or pneumothorax. Partially imaged cardiomegaly. Atherosclerotic calcifications. Partially imaged median sternotomy wires. LIVER: Unremarkable unenhanced appearance. GALLBLADDER AND BILE DUCTS: Cholecystectomy. PANCREAS: Unremarkable unenhanced appearance. SPLEEN: Unremarkable unenhanced appearance. ADRENALS: Unremarkable unenhanced appearance. KIDNEYS AND URETERS: Atrophic bilateral kidneys. No hydronephrosis or obstructing renal calculus. BLADDER: Markedly irregularly thick-walled urinary bladder. REPRODUCTIVE: Unremarkable. APPENDIX: The appendix appears within normal limits of caliber. No secondary signs of acute appendicitis. BOWEL: The stomach is nondistended. Lack of oral contrast limits evaluation for bowel pathology. The bowel loops appear within normal limits of caliber without evidence of intestinal obstruction. Moderate diffuse constipation. PERITONEUM: No significant free fluid. No definite free air. LYMPH NODES: No bulky lymphadenopathy identified. VASCULATURE: Extensive dense atherosclerotic calcifications of the aorta and branches, uncertain etiology in a patient of this age. No aortic aneurysm. BONES: Bilateral L5 spondylolysis. Mild degenerative changes. Mild loss of height of the T9 vertebral body, chronic. OTHER FINDINGS: Numerous soft tissue densities throughout the subcutaneous soft tissues of the anterior abdominal wall; likely the result of subcutaneous injections. Correlate clinically. IMPRESSION: Chronic appearing left lower lobe consolidation. Malignant neoplasm cannot be excluded on these limited views. Correlate clinically. CT of the chest may be considered for further evaluation if clinically indicated. Cholecystectomy. Bilateral renal atrophy. Extensive irregular wall thickening of the urinary bladder. Recommend correlation with urinalysis and clinical history. Extensive dense vascular calcifications of the aorta and branches of uncertain etiology in a patient of this age. Numerous soft tissue densities throughout the subcutaneous soft tissues of the anterior abdominal wall; likely the result of subcutaneous injections. Correlate clinically. Additional findings as above.
[2017-03-29] MEDS: HYDROmorphone 1 mg/ml ISec IVP PRN (20:28)
[2017-03-29] MEDS: (Novolog) Insulin Aspart, Recombinant 100 u/ml 10 ml vial SC SCH (21:57)
[2017-03-30] MEDS: HYDROmorphone 1 mg/ml ISec IVP PRN ×4 (01:58→19:55)
[2017-03-30] MEDS: (Novolog) Insulin Aspart, Recombinant 100 u/ml 10 ml vial SC SCH ×5 (02:16→21:59)
[2017-03-30] MEDS ORDERED: Dextrose 50% SYRINGE Inj (50 ml) IV STA (05:00)
[2017-03-30] MEDS: Levothyroxine 50 MCG TAB PO SCH (07:10)
[2017-03-30] MEDS ORDERED: Multiple Vitamins Tab PO SCH (10:00)
--- NOTE | 2017-03-30 10:20 | CP.PCM.CON ---
History of Present Illness - History of Present Illness History of Present Illness: 36 yo w/ pmh of esrd, htn, cad, chf, pad presenting w/ sob. He states that he had sob yesterday and was very hypertenstive nad did not go to dialysis on . He underwent urgent HD yesterday. He is feeling bettr today but has some abdominal pain - epigastric no radiation. No n/v/cp/sob/fever chills current. ros; a full detailed ros is negative except as in my hpi pmH; esrd, htn, cad, pad , chf famhx: no esrd all: as above Past Patient History - Infectious Disease Hx of Infectious Diseases: None - Tetanus Immunizations Tetanus Immunization: >10 years Ago - Past Medical History & Family History Past Medical History?: Yes - Past Social History Smoking Status: Never Smoked Alcohol: None Drugs: Denies - CARDIAC Hx Atrial Fibrillation: Yes Hx Cardia Arrhythmia: Yes Hx Congestive Heart Failure: Yes Hx Hypercholesterolemia: Yes Hx Hypertension: Yes - PULMONARY Hx Asthma: Yes Hx Bronchitis: Yes Hx Chronic Obstructive Pulmonary Disease (COPD): Yes Hx Pneumonia: Yes - NEUROLOGICAL Hx Alzheimer's Disease: Yes Hx Seizures: Yes - HEENT Hx HEENT Problems: Yes Hx Blind: Yes (legally blind) Hx Cataracts: Yes - RENAL Hx Chronic Kidney Disease: Yes Hx Dialysis: Yes Date of Last Dialysis Treatment: 03/29/17 - ENDOCRINE/METABOLIC Hx Hyperthyroidism: No Hx Hypothyroidism: Yes - HEMATOLOGICAL/ONCOLOGICAL Hx Anemia: Yes - INTEGUMENTARY Hx Dermatological Problems: No - MUSCULOSKELETAL/RHEUMATOLOGICAL Hx Arthritis: Yes Hx Falls: No - GASTROINTESTINAL Hx Gall Bladder Disease: Yes - GENITOURINARY/GYNECOLOGICAL Hx Sexually Transmitted Disorders: No - PSYCHIATRIC Hx Anxiety: Yes Hx Depression: Yes Hx Substance Use: No - SURGICAL HISTORY Hx Cholecystectomy: Yes (2011) 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/2009) Hx Coronary Stent: Yes - ANESTHESIA Hx Anesthesia: Yes Hx Anesthesia Reactions: No Hx Malignant Hyperthermia: No Has any member of the family had a problem w/ anesthesia?: No Meds Allergies/Adverse Reactions: Allergies Allergy/AdvReac Type Severity Reaction Status Date / Time acetaminophen [From Percocet] Allergy RASH Verified 03/29/17 12:29 atenolol Allergy RASH Verified 03/29/17 12:29 digoxin Allergy RASH Verified 03/29/17 12:29 milk Allergy ITCHING Verified 03/29/17 12:29 morphine Allergy ITCHING Verified 03/29/17 12:29 oxycodone HCl [From Percocet] Allergy RASH Verified 03/29/17 12:29 - Medications Medications: Current Medications Albuterol/Ipratropium (Duoneb 3 Mg/0.5 Mg (3 Ml) Ud) 3 ml INH RTID [facility] Amlodipine Besylate (Norvasc) 10 mg PO DAILY [facility] Aspirin (Aspirin Chewable) 81 mg PO DAILY [facility] Carvedilol (Coreg) 25 mg PO BID [facility] Clopidogrel Bisulfate (Plavix) 75 mg PO DAILY [facility] Hydralazine HCl (Apresoline) 50 mg PO Q8H [facility] Last Admin: 03/30/17 04:47 Dose: 50 mg Hydromorphone HCl (Dilaudid) 1 mg IVP Q6H PRN PRN Reason: Pain, moderate (4-7) Last Admin: 03/30/17 08:00 Dose: 1 mg Insulin Aspart (Novolog) 0 unit SC ACHS [facility] PRN Reason: Protocol Last Admin: 03/30/17 08:10 Dose: 4 unit Levothyroxine Sodium (Synthroid) 50 mcg PO DAILY@0630 [facility] Last Admin: 03/30/17 07:10 Dose: 50 mcg Losartan Potassium (Cozaar) 100 mg PO DAILY [facility] Multivitamins (Hexavitamin) 1 tab PO DAILY [facility] Sertraline HCl (Zoloft) 50 mg PO DAILY [facility] Physical Exam - Constitutional Appears: Non-toxic - Head Exam Head Exam: ATRAUMATIC - Eye Exam Additional comments: non icteric - ENT Exam ENT Exam: Normal Exam - Neck Exam Neck exam: Positive for: Normal Inspection - Respiratory Exam Respiratory Exam: NORMAL BREATHING PATTERN - Cardiovascular Exam Cardiovascular Exam: +S1, +S2 - GI/Abdominal Exam GI & Abdominal Exam: Normal Bowel Sounds - Extremities Exam Additional comments: no edema - Neurological Exam Neurological exam: Alert, Oriented x3 - Psychiatric Exam Psychiatric exam: Normal Affect - Skin Skin Exam: Normal Color Results - Vital Signs Recent Vital Signs: Last Vital Signs Temp 97.7 F 03/30/17 04:47 Pulse 80 03/30/17 04:47 Resp 20 03/30/17 04:47 BP 158/85 H 03/30/17 04:47 Pulse Ox 100 03/29/17 23:55 - Labs Result Diagrams: 03/29/17 12:33 03/29/17 13:10 Labs: Laboratory Results - last 24 hr 03/29/17 03/29/17 03/30/17 16:33 21:12 02:06 POC Glucose (mg/dL) 222 H 200 H 420 H* Total Creatine Kinase CK-MB (Mass) Troponin I, Quant 03/30/17 03/30/17 03/30/17 04:33 04:56 05:43 POC Glucose (mg/dL) 42 L 32 L* 253 H Total Creatine Kinase CK-MB (Mass) Troponin I, Quant 03/30/17 08:19 POC Glucose (mg/dL) Total Creatine Kinase < 20 L CK-MB (Mass) 1.62 Troponin I, Quant 0.0160 Assessment & Plan - Assessment and Plan (Free Text) Assessment: ESRD/ HTN/ ANemia of Renal disease/ Secondary hyperparathyroid plan: HD again today to get back on schedule on bp meds - reasonably controlled today will check phos and start binder hgb at goal will start nephrocap
[2017-03-30] MEDS: Albuterol-Ipratrop 3 mg / 0.5 (3 ml) UD INH SCH ×3 (10:49→19:21)
--- NOTE | 2017-03-30 14:49 | CP.PCM.HP ---
History of Present Illness - History of Present Illness History of Present Illness: abdominal pain vomiting today came in also for sob chest pain and hi bp Present on Admission - Present on Admission Any Indicators Present on Admission: No Review of Systems - Review of Systems Systems not reviewed;Unavailable: Acuity of Condition - Constitutional Constitutional: Anorexia - EENT Ears: As Per HPI Nose/Mouth/Throat: As Per HPI - Cardiovascular Cardiovascular: Chest Pain at Rest, Dyspnea - Respiratory Respiratory: Dyspnea on Exertion - Gastrointestinal Gastrointestinal: Abdominal Pain, Cramping, Vomiting - Genitourinary Genitourinary: As Per HPI - Reproductive: Male Reproductive:Male: As Per HPI - Musculoskeletal Musculoskeletal: As Per HPI Additional comments: s/p bilateral amputation - Integumentary Integumentary: Dry Skin - Neurological Neurological: Numbness, Weakness - Psychiatric Psychiatric: Depression - Endocrine Endocrine: Polydipsia - Hematologic/Lymphatic Hematologic: As Per HPI Past Patient History - Infectious Disease Hx of Infectious Diseases: None - Tetanus Immunizations Tetanus Immunization: >10 years Ago - Past Medical History & Family History Past Medical History?: Yes - Past Social History Smoking Status: Never Smoked Alcohol: None Drugs: Denies - CARDIAC Hx Atrial Fibrillation: Yes Hx Cardia Arrhythmia: Yes Hx Congestive Heart Failure: Yes Hx Hypercholesterolemia: Yes Hx Hypertension: Yes - PULMONARY Hx Asthma: Yes Hx Bronchitis: Yes Hx Chronic Obstructive Pulmonary Disease (COPD): Yes Hx Pneumonia: Yes - NEUROLOGICAL Hx Alzheimer's Disease: Yes Hx Seizures: Yes - HEENT Hx HEENT Problems: Yes Hx Blind: Yes (legally blind) Hx Cataracts: Yes - RENAL Hx Chronic Kidney Disease: Yes Hx Dialysis: Yes Date of Last Dialysis Treatment: 03/29/17 - ENDOCRINE/METABOLIC Hx Hyperthyroidism: No Hx Hypothyroidism: Yes - HEMATOLOGICAL/ONCOLOGICAL Hx Anemia: Yes - INTEGUMENTARY Hx Dermatological Problems: No - MUSCULOSKELETAL/RHEUMATOLOGICAL Hx Arthritis: Yes Hx Falls: No - GASTROINTESTINAL Hx Gall Bladder Disease: Yes - GENITOURINARY/GYNECOLOGICAL Hx Sexually Transmitted Disorders: No - PSYCHIATRIC Hx Anxiety: Yes Hx Depression: Yes Hx Substance Use: No - SURGICAL HISTORY Hx Cholecystectomy: Yes (2011) 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/2009) Hx Coronary Stent: Yes - ANESTHESIA Hx Anesthesia: Yes Hx Anesthesia Reactions: No Hx Malignant Hyperthermia: No Has any member of the family had a problem w/ anesthesia?: No Meds Allergies/Adverse Reactions: Allergies Allergy/AdvReac Type Severity Reaction Status Date / Time acetaminophen [From Percocet] Allergy RASH Verified 03/29/17 12:29 atenolol Allergy RASH Verified 03/29/17 12:29 digoxin Allergy RASH Verified 03/29/17 12:29 milk Allergy ITCHING Verified 03/29/17 12:29 morphine Allergy ITCHING Verified 03/29/17 12:29 oxycodone HCl [From Percocet] Allergy RASH Verified 03/29/17 12:29 Physical Exam - Constitutional Appears: Non-toxic - Head Exam Head Exam: NORMAL INSPECTION - Eye Exam Eye Exam: Normal appearance - ENT Exam ENT Exam: Mucous Membranes Moist - Neck Exam Neck exam: Positive for: Full Rom - Respiratory Exam Respiratory Exam: Decreased Breath Sounds - Cardiovascular Exam Cardiovascular Exam: REGULAR RHYTHM - GI/Abdominal Exam GI & Abdominal Exam: Tenderness - Rectal Exam Rectal Exam: NORMAL INSPECTION - Extremities Exam Additional comments: bilateral amputation - Back Exam Back exam: NORMAL INSPECTION - Psychiatric Exam Psychiatric exam: Normal Affect - Skin Skin Exam: Dry Results - Vital Signs Recent Vital Signs: Last Vital Signs Temp 97.7 F 03/30/17 11:20 Pulse 77 03/30/17 13:20 Resp 16 03/30/17 13:20 BP 107/63 03/30/17 13:20 Pulse Ox 100 03/30/17 13:20 - Labs Result Diagrams: 03/29/17 12:33 03/29/17 13:10 Labs: Laboratory Results - last 24 hr 03/29/17 03/29/17 03/30/17 16:33 21:12 02:06 POC Glucose (mg/dL) 222 H 200 H 420 H* Phosphorus Total Creatine Kinase CK-MB (Mass) Troponin I, Quant 03/30/17 03/30/17 03/30/17 04:33 04:56 05:43 POC Glucose (mg/dL) 42 L 32 L* 253 H Phosphorus Total Creatine Kinase CK-MB (Mass) Troponin I, Quant 03/30/17 03/30/17 03/30/17 08:19 11:35 12:40 POC Glucose (mg/dL) 90 Phosphorus 5.0 H Total Creatine Kinase < 20 L CK-MB (Mass) 1.62 Troponin I, Quant 0.0160 03/30/17 12:50 POC Glucose (mg/dL) 88 Phosphorus Total Creatine Kinase CK-MB (Mass) Troponin I, Quant Assessment & Plan - Assessment and Plan (Free Text) Assessment: ac abd pain vomiting sob chest pain cad copd htn dmid Plan: as per orders - Date & Time Date: 03/30/17 Time: 14:53
--- NOTE | 2017-03-30 16:39 | CP.PCM.CON ---
History of Present Illness - History of Present Illness History of Present Illness: 36 year old patient is brought to the ED by ambulance for evaluation of HTN and diahrrhea after missed HD . Patient states he feels better now, and Pt is well known to ED, and was recently admitted for hyperglycemia. Otherwise, denies any headache, dizziness, weakness, numbness, lightheadedness, shortness of breath, cough, or any other associated symptoms at this time. pmhx is extensive for 1. CAD s/p CABG with subsequent closure of vein grafts and then had RCA stent. Non-revascularizable coronaries. 2. HTN uncontrolled: labile 3. DM uncontrolled (non compliant with diet) 4. PAD s/p L. BKA abd R. ray amputation and chronic R. heel ulcer; hx of R.SFA/ popliteal angioplasty and AT stent with eventual R. BKA. 5. kleinfelters 6. ASX moderate pulmonary stenosis 7. hx of chronic pain, hx of liver abscess and infections 8. legally blind 9. Pain medication dependence 10. Hx of non-compliance with missed HD in the past 11. Episode of atrial flutter in the past: high risk for anticoagulation for anemia and GI bleed therefor giig amiodarone 200mg daily and DAPT only. SOCHX: No Tobacco, ETOH or DRUBG abuse PSHX: as above ROS: legally blind, B/K BKA Review of Systems - Review of Systems All systems: reviewed and no additional remarkable complaints except Past Patient History - Infectious Disease Hx of Infectious Diseases: None - Tetanus Immunizations Tetanus Immunization: >10 years Ago - Past Medical History & Family History Past Medical History?: Yes - Past Social History Smoking Status: Never Smoked Alcohol: None Drugs: Denies - CARDIAC Hx Atrial Fibrillation: Yes Hx Cardia Arrhythmia: Yes Hx Congestive Heart Failure: Yes Hx Hypercholesterolemia: Yes Hx Hypertension: Yes - PULMONARY Hx Asthma: Yes Hx Bronchitis: Yes Hx Chronic Obstructive Pulmonary Disease (COPD): Yes Hx Pneumonia: Yes - NEUROLOGICAL Hx Alzheimer's Disease: Yes Hx Seizures: Yes - HEENT Hx HEENT Problems: Yes Hx Blind: Yes (legally blind) Hx Cataracts: Yes - RENAL Hx Chronic Kidney Disease: Yes Hx Dialysis: Yes Date of Last Dialysis Treatment: 03/29/17 - ENDOCRINE/METABOLIC Hx Hyperthyroidism: No Hx Hypothyroidism: Yes - HEMATOLOGICAL/ONCOLOGICAL Hx Anemia: Yes - INTEGUMENTARY Hx Dermatological Problems: No - MUSCULOSKELETAL/RHEUMATOLOGICAL Hx Arthritis: Yes Hx Falls: No - GASTROINTESTINAL Hx Gall Bladder Disease: Yes - GENITOURINARY/GYNECOLOGICAL Hx Sexually Transmitted Disorders: No - PSYCHIATRIC Hx Anxiety: Yes Hx Depression: Yes Hx Substance Use: No - SURGICAL HISTORY Hx Cholecystectomy: Yes (2011) 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/2009) Hx Coronary Stent: Yes - ANESTHESIA Hx Anesthesia: Yes Hx Anesthesia Reactions: No Hx Malignant Hyperthermia: No Has any member of the family had a problem w/ anesthesia?: No Meds Allergies/Adverse Reactions: Allergies Allergy/AdvReac Type Severity Reaction Status Date / Time acetaminophen [From Percocet] Allergy RASH Verified 03/29/17 12:29 atenolol Allergy RASH Verified 03/29/17 12:29 digoxin Allergy RASH Verified 03/29/17 12:29 milk Allergy ITCHING Verified 03/29/17 12:29 morphine Allergy ITCHING Verified 03/29/17 12:29 oxycodone HCl [From Percocet] Allergy RASH Verified 03/29/17 12:29 - Medications Medications: Current Medications Albuterol/Ipratropium (Duoneb 3 Mg/0.5 Mg (3 Ml) Ud) 3 ml INH RTID [facility] Last Admin: 03/30/17 13:54 Dose: Not Given Amlodipine Besylate (Norvasc) 10 mg PO DAILY [facility] Last Admin: 03/30/17 10:46 Dose: 10 mg Aspirin (Aspirin Chewable) 81 mg PO DAILY [facility] Last Admin: 03/30/17 10:46 Dose: 81 mg Carvedilol (Coreg) 25 mg PO BID [facility] Last Admin: 03/30/17 10:49 Dose: 25 mg Clopidogrel Bisulfate (Plavix) 75 mg PO DAILY [facility] Last Admin: 03/30/17 14:07 Dose: 75 mg Heparin Sodium (Porcine) (Heparin) 5,000 units SC Q12 [facility] Last Admin: 03/30/17 10:30 Dose: Not Given Hydralazine HCl (Apresoline) 50 mg PO Q8H [facility] Last Admin: 03/30/17 14:05 Dose: 50 mg Hydromorphone HCl (Dilaudid) 1 mg IVP Q6H PRN PRN Reason: Pain, moderate (4-7) Last Admin: 03/30/17 14:00 Dose: 1 mg Insulin Aspart (Novolog) 0 unit SC ACHS [facility] PRN Reason: Protocol Last Admin: 03/30/17 11:30 Dose: Not Given Levothyroxine Sodium (Synthroid) 50 mcg PO DAILY@0630 [facility] Last Admin: 03/30/17 07:10 Dose: 50 mcg Losartan Potassium (Cozaar) 100 mg PO DAILY [facility] Last Admin: 03/30/17 10:46 Dose: 100 mg Ondansetron HCl (Zofran Inj) 4 mg IVP QID [facility] Sertraline HCl (Zoloft) 50 mg PO DAILY [facility] Last Admin: 03/30/17 10:46 Dose: 50 mg Sevelamer Carbonate (Renvela) 800 mg PO TIDCC [facility] Last Admin: 03/30/17 14:07 Dose: 800 mg Vitamin B Complex/Vit C/Folic Acid (Nephro-Courtney) 1 tab PO 0800 [facility] Physical Exam - Constitutional Appears: No Acute Distress - Head Exam Head Exam: ATRAUMATIC, NORMAL INSPECTION, NORMOCEPHALIC - Eye Exam Eye Exam: absent: Normal appearance (legally blinds) - Neck Exam Neck exam: Positive for: Full Rom. Negative for: Tenderness - Respiratory Exam Respiratory Exam: Clear to Auscultation Bilateral, NORMAL BREATHING PATTERN. absent: Rhonchi, Wheezes - Cardiovascular Exam Cardiovascular Exam: REGULAR RHYTHM, Systolic Murmur - GI/Abdominal Exam GI & Abdominal Exam: Normal Bowel Sounds, Soft. absent: Tenderness - Extremities Exam Extremities exam: Negative for: normal inspection (B/L BKA) - Neurological Exam Neurological exam: Alert, Oriented x3 - Skin Skin Exam: Normal Color, Warm Results - Vital Signs Recent Vital Signs: Last Vital Signs Temp 98.1 F 03/30/17 16:14 Pulse 80 03/30/17 16:14 Resp 20 03/30/17 16:14 BP 126/77 03/30/17 16:14 Pulse Ox 100 03/30/17 16:14 - Labs Result Diagrams: 03/29/17 12:33 03/29/17 13:10 Labs: Laboratory Results - last 24 hr 03/29/17 03/30/17 03/30/17 21:12 02:06 04:33 POC Glucose (mg/dL) 200 H 420 H* 42 L Phosphorus Total Creatine Kinase CK-MB (Mass) Troponin I, Quant 03/30/17 03/30/17 03/30/17 04:56 05:43 08:19 POC Glucose (mg/dL) 32 L* 253 H Phosphorus Total Creatine Kinase < 20 L CK-MB (Mass) 1.62 Troponin I, Quant 0.0160 03/30/17 03/30/17 03/30/17 11:35 12:40 12:50 POC Glucose (mg/dL) 90 88 Phosphorus 5.0 H Total Creatine Kinase CK-MB (Mass) Troponin I, Quant - EKG Data EKG Interpreted by: Myself (NSR, LVH with strain pattern (unchaged from prior EKGs)) Assessment & Plan - Assessment and Plan (Free Text) Assessment: 1. CAD: hx of CABG and subsequent stent; patient CAD status is stable and should be medically treated wth Coreg,IMDUR/Statin. He has had normal LV function with chronic diastolic dysfunction. EKG: read by me: NSR, LVH with strain which is unchanged from prior. * LDL goal 50-70 * Diabetic control * ASA, Coreg, Imdur, ranexa * No active cardiac sx's; cont medical therapy. * Cont volume removal with HD 2. HTN: labile presented with sys BP 250's Continue medical treatment as prescribed BP is better now on coreg, Norvasc, add hydralazine resume clonidine if needed. 3. AFLUTTER in past : now NSR; noted sinus zaida; Amiodarone 200 daily if recurrence He had EP consultation: Atrial tachycardia & AFLUTTER to be treated with amiodarone. Given GI bleed patient at risk for coumadin for stroke prevention. Will defer any ablation until or unless clinically significant or uncontrollable arrythmia. * Currently anemia hgb improved: continue ASA 81 and plavix only. 4. DM: labile: Cont medical rx continued education and counseling management per primary team 5. PAD: S/P B/L BKA ASX No signs of ulcer or wound dehiscence 6. ESRD: Stable chem received interim HD: cont maintainence HD, Monitor lytes
[2017-03-31] MEDS: HYDROmorphone 1 mg/ml ISec IVP PRN ×4 (02:38→20:14)
[2017-03-31] MEDS: Levothyroxine 50 MCG TAB PO SCH (05:40)
[2017-03-31] MEDS: (Novolog) Insulin Aspart, Recombinant 100 u/ml 10 ml vial SC SCH ×4 (08:00→22:58)
[2017-03-31] MEDS: Albuterol-Ipratrop 3 mg / 0.5 (3 ml) UD INH SCH ×3 (08:06→22:25)
[2017-03-31] MEDS: Multivitamin Vitamin B Complex (Nephro-Vite) Tab PO SCH (10:29)
--- NOTE | 2017-03-31 11:13 | CP.PCM.PN ---
Subjective - Date & Time of Evaluation Date of Evaluation: 03/31/17 Time of Evaluation: 11:10 - Subjective Subjective: abd pain chest pain bs [id number] Objective - Vital Signs/Intake and Output Vital Signs (last 24 hours): Temp Pulse Resp BP Pulse Ox 98.3 F 80 17 120/70 98 03/31/17 07:50 03/31/17 07:50 03/31/17 07:50 03/31/17 10:22 03/31/17 07:50 - Medications Medications: Current Medications Albuterol/Ipratropium (Duoneb 3 Mg/0.5 Mg (3 Ml) Ud) 3 ml INH RTID [facility] Last Admin: 03/31/17 08:06 Dose: 3 ml Amlodipine Besylate (Norvasc) 10 mg PO DAILY [facility] Last Admin: 03/31/17 10:21 Dose: 10 mg Aspirin (Aspirin Chewable) 81 mg PO DAILY [facility] Last Admin: 03/31/17 10:21 Dose: 81 mg Carvedilol (Coreg) 25 mg PO BID [facility] Last Admin: 03/31/17 10:22 Dose: 25 mg Clopidogrel Bisulfate (Plavix) 75 mg PO DAILY [facility] Last Admin: 03/31/17 10:21 Dose: 75 mg Heparin Sodium (Porcine) (Heparin) 5,000 units SC Q12 [facility] Last Admin: 03/31/17 10:22 Dose: 5,000 units Hydralazine HCl (Apresoline) 50 mg PO Q8H [facility] Last Admin: 03/31/17 05:40 Dose: 50 mg Hydromorphone HCl (Dilaudid) 1 mg IVP Q6H PRN PRN Reason: Pain, moderate (4-7) Last Admin: 03/31/17 08:25 Dose: 1 mg Insulin Aspart (Novolog) 0 unit SC [facility] PRN Reason: Protocol Last Admin: 03/31/17 08:00 Dose: 6 unit Insulin Glargine (Lantus) 8 unit SC HS [facility] Levothyroxine Sodium (Synthroid) 50 mcg PO DAILY@0630 [facility] Last Admin: 03/31/17 05:40 Dose: 50 mcg Losartan Potassium (Cozaar) 100 mg PO DAILY [facility] Last Admin: 03/31/17 10:21 Dose: 100 mg Ondansetron HCl (Zofran Inj) 4 mg IVP QID [facility] Last Admin: 03/31/17 10:35 Dose: 4 mg Sertraline HCl (Zoloft) 50 mg PO DAILY [facility] Last Admin: 03/31/17 10:21 Dose: 50 mg Sevelamer Carbonate (Renvela) 800 mg PO TIDCC [facility] Last Admin: 03/31/17 08:00 Dose: 800 mg Vitamin B Complex/Vit C/Folic Acid (Nephro-Courtney) 1 tab PO 0800 [facility] Last Admin: 03/31/17 10:29 Dose: 1 tab - Labs Labs: PT 11.3 SECONDS (9.7-12.2) 03/29/17 13:10 INR 1.0 03/29/17 13:10 APTT 30 SECONDS (21-34) 03/29/17 13:10 - Constitutional Appears: Non-toxic - Head Exam Head Exam: NORMAL INSPECTION - Eye Exam Additional comments: legaly blind - ENT Exam ENT Exam: Normal Exam - Neck Exam Neck Exam: Full ROM - Respiratory Exam Respiratory Exam: Decreased Breath Sounds - Cardiovascular Exam Cardiovascular Exam: REGULAR RHYTHM - GI/Abdominal Exam GI & Abdominal Exam: Normal Bowel Sounds - Rectal Exam Rectal Exam: NORMAL INSPECTION - Back Exam Back Exam: NORMAL INSPECTION - Psychiatric Exam Psychiatric exam: Normal Affect - Skin Skin Exam: Dry Assessment and Plan - Assessment and Plan (Free Text) Assessment: chest pain cad abd pain esrf htn dmim uncontroled Plan: as per orders
--- NOTE | 2017-03-31 14:05 | CP.PCM.PN ---
Subjective - Date & Time of Evaluation Date of Evaluation: 03/31/17 Time of Evaluation: 14:03 - Subjective Subjective: No acute cardiac or pulmonary complaints BP is better Blood sugars are averaging high No N/V/D Objective - Vital Signs/Intake and Output Vital Signs (last 24 hours): Temp Pulse Resp BP Pulse Ox 98.3 F 80 17 120/70 98 03/31/17 07:50 03/31/17 07:50 03/31/17 07:50 03/31/17 10:22 03/31/17 07:50 - Medications Medications: Current Medications Albuterol/Ipratropium (Duoneb 3 Mg/0.5 Mg (3 Ml) Ud) 3 ml INH RTID [facility] Last Admin: 03/31/17 13:31 Dose: 3 ml Amlodipine Besylate (Norvasc) 10 mg PO DAILY [facility] Last Admin: 03/31/17 10:21 Dose: 10 mg Aspirin (Aspirin Chewable) 81 mg PO DAILY [facility] Last Admin: 03/31/17 10:21 Dose: 81 mg Carvedilol (Coreg) 25 mg PO BID [facility] Last Admin: 03/31/17 10:22 Dose: 25 mg Clopidogrel Bisulfate (Plavix) 75 mg PO DAILY [facility] Last Admin: 03/31/17 10:21 Dose: 75 mg Heparin Sodium (Porcine) (Heparin) 5,000 units SC Q12 [facility] Last Admin: 03/31/17 10:22 Dose: 5,000 units Hydralazine HCl (Apresoline) 50 mg PO Q8H [facility] Last Admin: 03/31/17 13:53 Dose: 50 mg Hydromorphone HCl (Dilaudid) 1 mg IVP Q6H PRN PRN Reason: Pain, moderate (4-7) Last Admin: 03/31/17 08:25 Dose: 1 mg Insulin Aspart (Novolog) 0 unit SC ACHS [facility] PRN Reason: Protocol Last Admin: 03/31/17 11:30 Dose: Not Given Insulin Glargine (Lantus) 8 unit SC HS [facility] Levothyroxine Sodium (Synthroid) 50 mcg PO DAILY@0630 [facility] Last Admin: 03/31/17 05:40 Dose: 50 mcg Losartan Potassium (Cozaar) 100 mg PO DAILY [facility] Last Admin: 03/31/17 10:21 Dose: 100 mg Ondansetron HCl (Zofran Inj) 4 mg IVP QID [facility] Last Admin: 03/31/17 13:52 Dose: 4 mg Sertraline HCl (Zoloft) 50 mg PO DAILY [facility] Last Admin: 03/31/17 10:21 Dose: 50 mg Sevelamer Carbonate (Renvela) 800 mg PO TIDCC [facility] Last Admin: 03/31/17 13:53 Dose: 800 mg Vitamin B Complex/Vit C/Folic Acid (Nephro-Courtney) 1 tab PO 0800 [facility] Last Admin: 03/31/17 10:29 Dose: 1 tab - Labs Labs: PT 11.3 SECONDS (9.7-12.2) 03/29/17 13:10 INR 1.0 03/29/17 13:10 APTT 30 SECONDS (21-34) 03/29/17 13:10 - Constitutional Appears: No Acute Distress - Head Exam Head Exam: ATRAUMATIC, NORMAL INSPECTION - Eye Exam Eye Exam: absent: Normal appearance - ENT Exam ENT Exam: Normal Oropharynx - Respiratory Exam Respiratory Exam: Clear to Ausculation Bilateral, NORMAL BREATHING PATTERN. absent: Rhonchi, Wheezes - Cardiovascular Exam Cardiovascular Exam: REGULAR RHYTHM, +S1, +S2, Murmur. absent: Gallop, +S4 - Extremities Exam Extremities Exam: absent: Normal Inspection (b/l BKA) - Neurological Exam Neurological Exam: Alert, Awake, Oriented x3 - Psychiatric Exam Psychiatric exam: Normal Affect, Normal Mood - Skin Skin Exam: Normal Color, Warm Assessment and Plan - Assessment and Plan (Free Text) Assessment: 1. CAD: hx of CABG and subsequent stent; patient CAD status is stable and should be medically treated wth Coreg,IMDUR/Statin. He has had normal LV function with chronic diastolic dysfunction. EKG: read by me: NSR, LVH with strain which is unchanged from prior. * LDL goal 50-70 * Diabetic control * ASA, Coreg, Imdur, ranexa * No active cardiac sx's; cont medical therapy. * Cont volume removal with HD 2. HTN: labile presented with sys BP 250's Continue medical treatment as prescribed BP is better now on coreg, Norvasc, add hydralazine resume clonidine if needed. 3. AFLUTTER in past : now NSR; noted sinus zaida; Amiodarone 200 daily if recurrence He had EP consultation: Atrial tachycardia & AFLUTTER to be treated with amiodarone. Given GI bleed patient at risk for coumadin for stroke prevention. Will defer any ablation until or unless clinically significant or uncontrollable arrythmia. * Currently anemia hgb improved: continue ASA 81 and plavix only. 4. DM: labile: Cont medical rx continued education and counseling management per primary team 5. PAD: S/P B/L BKA ASX No signs of ulcer or wound dehiscence 6. ESRD: Stable chem received interim HD: cont maintainence HD, Monitor lytes
[2017-03-31] MEDS ORDERED: (Lantus) Insulin Glargine, Recombinant SC SCH (22:00)
[2017-04-01] MEDS: HYDROmorphone 1 mg/ml ISec IVP PRN ×4 (03:11→22:46)
[2017-04-01] MEDS: Levothyroxine 50 MCG TAB PO SCH (06:08)
[2017-04-01] MEDS: Albuterol-Ipratrop 3 mg / 0.5 (3 ml) UD INH SCH ×3 (08:18→19:48)
[2017-04-01] MEDS: Multivitamin Vitamin B Complex (Nephro-Vite) Tab PO SCH (08:27)
[2017-04-01] MEDS: (Novolog) Insulin Aspart, Recombinant 100 u/ml 10 ml vial SC SCH ×2 (08:27→14:12)
[2017-04-01 09:26] LABS: BASO # 0.1 K/uL (0.0-0.2); BASO % 0.5 % (0.0-2.0); EOS # 0.8 K/uL (0.0-0.7); EOS % 6.6 % (0.0-4.0); HEMATOCRIT 32.2 % (35.0-51.0); LYMPH # 2.3 K/uL (1.0-4.3); LYMPH % 19.1 % (20.0-40.0); MEAN CELL VOLUME 88.9 fL (80.0-94.0); MEAN CORPUSCULAR HEMOGLOBIN 28.3 pg (27.0-31.0); MEAN CORPUSCULAR HGB CONC 31.8 g/dL (33.0-37.0); MEAN PLATELET VOLUME 9.1 fL (7.2-11.7); MONO # 0.8 K/uL (0.0-0.8); MONO % 6.9 % (0.0-10.0); NRBC % 0.1 % (0.0-2.0); RED CELL DISTRIBUTION WIDTH 20.3 % (11.5-14.5); WHITE BLOOD COUNT 11.9 K/uL (4.8-10.8)
[2017-04-01 09:36] LABS: CALCIUM 7.9 mg/dl (8.6-10.4)
--- NOTE | 2017-04-01 11:52 | CP.PCM.PN ---
Subjective - Date & Time of Evaluation Date of Evaluation: 04/01/17 Time of Evaluation: 10:45 - Subjective Subjective: Currently on HD No c/o SOB BP 108/64 Objective - Vital Signs/Intake and Output Vital Signs (last 24 hours): Temp Pulse Resp BP Pulse Ox 98.4 F 79 20 108/67 91 L 04/01/17 09:15 04/01/17 09:15 04/01/17 09:15 04/01/17 11:00 04/01/17 09:15 - Medications Medications: Current Medications Albuterol/Ipratropium (Duoneb 3 Mg/0.5 Mg (3 Ml) Ud) 3 ml INH RTID [facility] Last Admin: 04/01/17 08:18 Dose: 3 ml Amlodipine Besylate (Norvasc) 10 mg PO DAILY [facility] Last Admin: 03/31/17 10:21 Dose: 10 mg Aspirin (Aspirin Chewable) 81 mg PO DAILY [facility] Last Admin: 03/31/17 10:21 Dose: 81 mg Carvedilol (Coreg) 25 mg PO BID [facility] Last Admin: 03/31/17 18:44 Dose: 25 mg Clopidogrel Bisulfate (Plavix) 75 mg PO DAILY [facility] Last Admin: 03/31/17 10:21 Dose: 75 mg Heparin Sodium (Porcine) (Heparin) 5,000 units SC Q12 [facility] Last Admin: 03/31/17 22:56 Dose: 5,000 units Hydralazine HCl (Apresoline) 50 mg PO Q8H [facility] Last Admin: 04/01/17 06:08 Dose: 50 mg Hydromorphone HCl (Dilaudid) 1 mg IVP Q6H PRN PRN Reason: Pain, moderate (4-7) Last Admin: 04/01/17 09:40 Dose: 1 mg Insulin Aspart (Novolog) 0 unit SC ACHS [facility] PRN Reason: Protocol Last Admin: 04/01/17 08:27 Dose: 2 unit Insulin Glargine (Lantus) 8 unit SC HS [facility] Last Admin: 03/31/17 22:57 Dose: 8 units Levothyroxine Sodium (Synthroid) 50 mcg PO DAILY@0630 [facility] Last Admin: 04/01/17 06:08 Dose: 50 mcg Losartan Potassium (Cozaar) 100 mg PO DAILY [facility] Last Admin: 03/31/17 10:21 Dose: 100 mg Ondansetron HCl (Zofran Inj) 4 mg IVP QID [facility] Last Admin: 03/31/17 22:55 Dose: 4 mg Sertraline HCl (Zoloft) 50 mg PO DAILY [facility] Last Admin: 03/31/17 10:21 Dose: 50 mg Sevelamer Carbonate (Renvela) 800 mg PO TIDCC [facility] Last Admin: 04/01/17 08:27 Dose: 800 mg Vitamin B Complex/Vit C/Folic Acid (Nephro-Courtney) 1 tab PO 0800 [facility] Last Admin: 04/01/17 08:27 Dose: 1 tab - Labs Labs: 04/01/17 09:23 04/01/17 09:23 PT 11.3 SECONDS (9.7-12.2) 03/29/17 13:10 INR 1.0 03/29/17 13:10 APTT 30 SECONDS (21-34) 03/29/17 13:10 - Respiratory Exam Additional comments: Lungs clear - Cardiovascular Exam Cardiovascular Exam: REGULAR RHYTHM - Extremities Exam Additional comments: B/L BKA Assessment and Plan - Assessment and Plan (Free Text) Assessment: ESRD on HD CAD/Hx/o CABG HTN IDDM PVD Plan: Contiue HD MWF Labs stable
--- NOTE | 2017-04-01 14:44 | CARD ---
APPROVED REPORT EKG Measurement Heart [id number] <Conclusion> Normal sinus rhythm Left ventricular hypertrophy with repolarization abnormality Abnormal ECG
--- NOTE | 2017-04-01 17:48 | CP.PCM.PN ---
Subjective - Date & Time of Evaluation Date of Evaluation: 04/01/17 Time of Evaluation: 17:46 - Subjective Subjective: still has abd pain vomited bs hi Objective - Vital Signs/Intake and Output Vital Signs (last 24 hours): Temp Pulse Resp BP Pulse Ox 98.9 F 68 18 119/64 97 04/01/17 15:59 04/01/17 15:59 04/01/17 15:59 04/01/17 15:59 04/01/17 15:59 - Medications Medications: Current Medications Albuterol/Ipratropium (Duoneb 3 Mg/0.5 Mg (3 Ml) Ud) 3 ml INH RTID [facility] Last Admin: 04/01/17 13:34 Dose: Not Given Amlodipine Besylate (Norvasc) 10 mg PO DAILY [facility] Last Admin: 04/01/17 10:30 Dose: Not Given Aspirin (Aspirin Chewable) 81 mg PO DAILY [facility] Last Admin: 04/01/17 14:11 Dose: 81 mg Carvedilol (Coreg) 25 mg PO BID [facility] Last Admin: 04/01/17 14:12 Dose: 25 mg Clopidogrel Bisulfate (Plavix) 75 mg PO DAILY [facility] Last Admin: 04/01/17 14:11 Dose: 75 mg Heparin Sodium (Porcine) (Heparin) 5,000 units SC Q12 [facility] Last Admin: 04/01/17 10:30 Dose: Not Given Heparin Sodium (Porcine) (Heparin) 4,700 units IVP MWF [facility] Last Admin: 04/01/17 12:50 Dose: 4,700 units Hydralazine HCl (Apresoline) 50 mg PO Q8H [facility] Last Admin: 04/01/17 06:08 Dose: 50 mg Hydromorphone HCl (Dilaudid) 1 mg IVP Q6H PRN PRN Reason: Pain, moderate (4-7) Last Admin: 04/01/17 16:20 Dose: 1 mg Insulin Aspart (Novolog) 0 unit SC ACHS [facility] PRN Reason: Protocol Last Admin: 04/01/17 14:12 Dose: 2 unit Insulin Glargine (Lantus) 8 unit SC HS [facility] Last Admin: 03/31/17 22:57 Dose: 8 units Levothyroxine Sodium (Synthroid) 50 mcg PO DAILY@0630 [facility] Last Admin: 04/01/17 06:08 Dose: 50 mcg Losartan Potassium (Cozaar) 100 mg PO DAILY [facility] Last Admin: 04/01/17 14:12 Dose: 100 mg Ondansetron HCl (Zofran Inj) 4 mg IVP QID [facility] Last Admin: 04/01/17 14:12 Dose: 4 mg Sertraline HCl (Zoloft) 50 mg PO DAILY [facility] Last Admin: 04/01/17 14:12 Dose: 50 mg Sevelamer Carbonate (Renvela) 800 mg PO TIDCC [facility] Last Admin: 04/01/17 16:22 Dose: 800 mg Vitamin B Complex/Vit C/Folic Acid (Nephro-Courtney) 1 tab PO 0800 [facility] Last Admin: 04/01/17 08:27 Dose: 1 tab - Labs Labs: 04/01/17 09:23 04/01/17 09:23 PT 11.3 SECONDS (9.7-12.2) 03/29/17 13:10 INR 1.0 03/29/17 13:10 APTT 30 SECONDS (21-34) 03/29/17 13:10 - Constitutional Appears: Non-toxic - Head Exam Head Exam: NORMAL INSPECTION - ENT Exam ENT Exam: Mucous Membranes Moist - Neck Exam Neck Exam: Full ROM - Respiratory Exam Respiratory Exam: Decreased Breath Sounds - Cardiovascular Exam Cardiovascular Exam: REGULAR RHYTHM - GI/Abdominal Exam GI & Abdominal Exam: Tenderness - Rectal Exam Rectal Exam: NORMAL INSPECTION - Back Exam Back Exam: CVA tenderness (L) - Neurological Exam Neurological Exam: Oriented x3 - Psychiatric Exam Psychiatric exam: Normal Affect - Skin Skin Exam: Pallor Assessment and Plan - Assessment and Plan (Free Text) Assessment: abd pain dm uncontoled esrf htn Plan: increase insulin
[2017-04-01] MEDS: (Lantus) Insulin Glargine, Recombinant SC SCH (21:45)
[2017-04-02] MEDS: HYDROmorphone 1 mg/ml ISec IVP PRN ×3 (05:01→18:05)
[2017-04-02] MEDS: Levothyroxine 50 MCG TAB PO SCH (05:35)
[2017-04-02] MEDS: Albuterol-Ipratrop 3 mg / 0.5 (3 ml) UD INH SCH ×3 (07:34→19:45)
--- NOTE | 2017-04-02 09:41 | CP.PCM.DIS ---
Provider - Provider Date of Admission: 03/29/17 15:09 Attending physician: Sybil Li MD Primary care physician: pt admited for chest pain sob and knpwn cad chf esrf has moniter enzyms and ekg and bs had dialysis feels beter no mi has oxygen and nebulizer will be discharged home to continu on all his med and dialysis and will resume home health care servisce ass ac chest pain cad ac sob copd chf esrf dmid back pain abd pain Time Spent in preparation of Discharge (in minutes): 30 Hospital Course - Lab Results Lab Results: Most Recent Lab Values WBC 11.9 K/uL (4.8-10.8) H 04/01/17 09:23 RBC 3.62 Mil/uL (4.40-5.90) L 04/01/17 09:23 Hgb 10.2 g/dL (12.0-18.0) L 04/01/17 09:23 Hct 32.2 % (35.0-51.0) L 04/01/17 09:23 MCV 88.9 fL (80.0-94.0) 04/01/17 09:23 MCH 28.3 pg (27.0-31.0) 04/01/17 09:23 MCHC 31.8 g/dL (33.0-37.0) L 04/01/17 09:23 RDW 20.3 % (11.5-14.5) H 04/01/17 09:23 Plt Count 161 K/uL (130-400) 04/01/17 09:23 MPV 9.1 fL (7.2-11.7) 04/01/17 09:23 Neut % (Auto) 66.9 % (50.0-75.0) 04/01/17 09:23 Lymph % (Auto) 19.1 % (20.0-40.0) L 04/01/17 09:23 [place]kins % (Auto) 6.9 % (0.0-10.0) 04/01/17 09:23 Eos % (Auto) 6.6 % (0.0-4.0) H 04/01/17 09:23 Baso % (Auto) 0.5 % (0.0-2.0) 04/01/17 09:23 Neut # 8.0 K/uL (1.8-7.0) H 04/01/17 09:23 Lymph # 2.3 K/uL (1.0-4.3) 04/01/17 09:23 [place]pkins # 0.8 K/uL (0.0-0.8) 04/01/17 09:23 Eos # 0.8 K/uL (0.0-0.7) H 04/01/17 09:23 Baso # 0.1 K/uL (0.0-0.2) 04/01/17 09:23 PT 11.3 SECONDS (9.7-12.2) 03/29/17 13:10 INR 1.0 03/29/17 13:10 APTT 30 SECONDS (21-34) 03/29/17 13:10 Sodium 132 mmol/L (132-148) 04/01/17 09:23 Potassium 5.0 mmol/L (3.6-5.2) 04/01/17 09:23 Chloride 90 mmol/L (98-107) L 04/01/17 09:23 Carbon Dioxide 25 mmol/L (22-30) 04/01/17 09:23 Anion Gap 22 (10-20) H 04/01/17 09:23 BUN 48 mg/dL (9-20) H 04/01/17 09:23 Creatinine 5.6 MG/DL (0.8-1.5) H 04/01/17 09:23 Est GFR ( Amer) 14 04/01/17 09:23 Est GFR (Non-Af Amer) 12 04/01/17 09:23 POC Glucose (mg/dL) 256 mg/dL (65-110) H 04/02/17 06:48 Random Glucose 212 mg/dL (75-110) H 04/01/17 09:23 Calcium 7.9 mg/dl (8.6-10.4) L 04/01/17 09:23 Phosphorus 5.0 mg/dL (2.5-4.5) H 03/30/17 12:40 Total Bilirubin 0.6 mg/dL (0.2-1.3) 03/29/17 13:10 AST 20 U/L (17-59) 03/29/17 13:10 ALT 20 U/L (21-72) L D 03/29/17 13:10 Alkaline Phosphatase 207 U/L (38-126) H D 03/29/17 13:10 Total Creatine Kinase < 20 U/L (55-170) L 03/30/17 08:19 CK-MB (Mass) 1.62 ng/mL (0.0-3.38) 03/30/17 08:19 Troponin I 0.0140 ng/mL (0.00-0.120) 03/29/17 13:10 Troponin I, Quant 0.0160 ng/mL (0.00-0.120) 03/30/17 08:19 Total Protein 6.9 g/dL (6.3-8.3) 03/29/17 13:10 Albumin 3.5 g/dL (3.5-5.0) 03/29/17 13:10 Globulin 3.4 gm/dL (2.2-3.9) 03/29/17 13:10 Albumin/Globulin Ratio 1.0 (1.0-2.1) 03/29/17 13:10 Lipase 442 U/L (23-300) H 03/29/17 13:10 Discharge Exam - Head Exam Head Exam: NORMAL INSPECTION Discharge Plan - Follow Up Plan Condition: STABLE Disposition: HOME/ ROUTINE
[2017-04-02] MEDS: Multivitamin Vitamin B Complex (Nephro-Vite) Tab PO SCH (10:30)
--- NOTE | 2017-04-02 11:59 | CP.PCM.PN ---
Subjective - Date & Time of Evaluation Date of Evaluation: 04/02/17 Time of Evaluation: 12:00 - Subjective Subjective: No c/o sob Appears comfortable Objective - Vital Signs/Intake and Output Vital Signs (last 24 hours): Temp Pulse Resp BP Pulse Ox 98.8 F 90 20 130/71 100 04/02/17 07:00 04/02/17 07:40 04/02/17 07:00 04/02/17 10:31 04/02/17 07:00 - Medications Medications: Current Medications Albuterol/Ipratropium (Duoneb 3 Mg/0.5 Mg (3 Ml) Ud) 3 ml INH RTID [facility] Last Admin: 04/02/17 07:34 Dose: 3 ml Amlodipine Besylate (Norvasc) 10 mg PO DAILY [facility] Last Admin: 04/02/17 10:31 Dose: 10 mg Aspirin (Aspirin Chewable) 81 mg PO DAILY [facility] Last Admin: 04/02/17 10:31 Dose: 81 mg Carvedilol (Coreg) 25 mg PO BID [facility] Last Admin: 04/02/17 10:31 Dose: 25 mg Clopidogrel Bisulfate (Plavix) 75 mg PO DAILY [facility] Last Admin: 04/02/17 10:30 Dose: 75 mg Heparin Sodium (Porcine) (Heparin) 4,700 units IVP MWF [facility] Last Admin: 04/01/17 12:50 Dose: 4,700 units Hydralazine HCl (Apresoline) 50 mg PO Q8H [facility] Last Admin: 04/02/17 05:05 Dose: 50 mg Hydromorphone HCl (Dilaudid) 1 mg IVP Q6H PRN PRN Reason: Pain, moderate (4-7) Last Admin: 04/02/17 11:25 Dose: 1 mg Insulin Glargine (Lantus) 10 unit SC HS [facility] Last Admin: 04/01/17 21:45 Dose: 10 units Levothyroxine Sodium (Synthroid) 50 mcg PO DAILY@0630 [facility] Last Admin: 04/02/17 05:35 Dose: 50 mcg Losartan Potassium (Cozaar) 100 mg PO DAILY [facility] Last Admin: 04/02/17 10:30 Dose: 100 mg Ondansetron HCl (Zofran Inj) 4 mg IVP QID [facility] Last Admin: 04/02/17 10:37 Dose: 4 mg Sertraline HCl (Zoloft) 50 mg PO DAILY [facility] Last Admin: 04/02/17 10:30 Dose: 50 mg Sevelamer Carbonate (Renvela) 800 mg PO TIDCC [facility] Last Admin: 04/02/17 10:30 Dose: 800 mg Vitamin B Complex/Vit C/Folic Acid (Nephro-Courtney) 1 tab PO 0800 [facility] Last Admin: 04/02/17 10:30 Dose: 1 tab - Labs Labs: 04/01/17 09:23 04/01/17 09:23 PT 11.3 SECONDS (9.7-12.2) 03/29/17 13:10 INR 1.0 03/29/17 13:10 APTT 30 SECONDS (21-34) 03/29/17 13:10 - Respiratory Exam Additional comments: Lungs clear - Cardiovascular Exam Cardiovascular Exam: REGULAR RHYTHM - Extremities Exam Additional comments: B/L BKA Assessment and Plan - Assessment and Plan (Free Text) Assessment: ESRD Abdominal pain HTN IDDM Plan: Stable on dialysis . Continue HD per schedule
[2017-04-02] MEDS: (Lantus) Insulin Glargine, Recombinant SC SCH (21:56)
[2017-04-03] MEDS: HYDROmorphone 1 mg/ml ISec IVP PRN ×3 (00:03→12:06)
[2017-04-03] MEDS: Albuterol-Ipratrop 3 mg / 0.5 (3 ml) UD INH SCH ×2 (07:24→12:59)
[2017-04-03] MEDS: Multivitamin Vitamin B Complex (Nephro-Vite) Tab PO SCH (08:48)
--- NOTE | 2017-04-03 10:56 | CP.PCM.PN ---
Subjective - Date & Time of Evaluation Date of Evaluation: 04/03/17 Time of Evaluation: 10:56 - Subjective Subjective: PT SEEN BY DR. BELL YESTERDAY AND CLEARED FOR D/C HOME AFTER HD TODAY. NO NEW RX. PT STABLE. SW TO ARRANGE TRANSPORTATION HOME TODAY. NO FURTHER ORDERS. Objective - Vital Signs/Intake and Output Vital Signs (last 24 hours): Temp Pulse Resp BP Pulse Ox 98.2 F 79 17 109/51 L 99 04/03/17 07:40 04/03/17 07:40 04/03/17 07:40 04/03/17 07:40 04/03/17 07:40 Intake and Output: 04/03/17 04/03/17 06:59 18:59 Intake Total 240 Balance 240 - Medications Medications: Current Medications Albuterol/Ipratropium (Duoneb 3 Mg/0.5 Mg (3 Ml) Ud) 3 ml INH RTID [facility] Last Admin: 04/03/17 07:24 Dose: Not Given Amlodipine Besylate (Norvasc) 10 mg PO DAILY [facility] Last Admin: 04/02/17 10:31 Dose: 10 mg Aspirin (Aspirin Chewable) 81 mg PO DAILY [facility] Last Admin: 04/02/17 10:31 Dose: 81 mg Carvedilol (Coreg) 25 mg PO BID [facility] Last Admin: 04/02/17 18:12 Dose: 25 mg Clopidogrel Bisulfate (Plavix) 75 mg PO DAILY [facility] Last Admin: 04/02/17 10:30 Dose: 75 mg Heparin Sodium (Porcine) (Heparin) 4,700 units IVP MWF [facility] Last Admin: 04/03/17 10:43 Dose: 4,700 units Hydralazine HCl (Apresoline) 50 mg PO Q8H [facility] Last Admin: 04/03/17 04:47 Dose: 50 mg Hydromorphone HCl (Dilaudid) 1 mg IVP Q6H PRN PRN Reason: Pain Last Admin: 04/03/17 05:54 Dose: 1 mg Insulin Glargine (Lantus) 10 unit SC HS [facility] Last Admin: 04/02/17 21:56 Dose: 10 units Levothyroxine Sodium (Synthroid) 50 mcg PO DAILY@0630 [facility] Last Admin: 04/02/17 05:35 Dose: 50 mcg Losartan Potassium (Cozaar) 100 mg PO DAILY [facility] Last Admin: 04/02/17 10:30 Dose: 100 mg Ondansetron HCl (Zofran Inj) 4 mg IVP QID [facility] Last Admin: 04/02/17 21:55 Dose: 4 mg Sertraline HCl (Zoloft) 50 mg PO DAILY [facility] Last Admin: 04/02/17 10:30 Dose: 50 mg Sevelamer Carbonate (Renvela) 800 mg PO TIDCC [facility] Last Admin: 04/03/17 08:48 Dose: 800 mg Vitamin B Complex/Vit C/Folic Acid (Nephro-Courtney) 1 tab PO 0800 [facility] Last Admin: 04/03/17 08:48 Dose: 1 tab - Labs Labs: 04/01/17 09:23 04/01/17 09:23 PT 11.3 SECONDS (9.7-12.2) 03/29/17 13:10 INR 1.0 03/29/17 13:10 APTT 30 SECONDS (21-34) 03/29/17 13:10
[2017-04-03 14:15] VITALS: RESP 20; TEMP 98.9; O2SAT 98
[2017-04-03 14:18] VITALS: PULSE 90
--- NOTE | 2017-04-03 15:52 | CP.PCM.PN ---
Subjective - Date & Time of Evaluation Date of Evaluation: 04/03/17 Time of Evaluation: 03:30 - Subjective Subjective: Sitting up in bed Pt states that he feels better Objective - Vital Signs/Intake and Output Vital Signs (last 24 hours): Temp Pulse Resp BP Pulse Ox 98.9 F 90 20 112/64 98 04/03/17 14:00 04/03/17 14:17 04/03/17 14:00 04/03/17 14:17 04/03/17 14:00 Intake and Output: 04/03/17 04/03/17 06:59 18:59 Intake Total 240 Balance 240 - Medications Medications: Current Medications Albuterol/Ipratropium (Duoneb 3 Mg/0.5 Mg (3 Ml) Ud) [address] [facility] Last Admin: 04/03/17 12:59 Dose: Not Given Amlodipine Besylate (Norvasc) [address] [facility] Last Admin: 04/03/17 12:48 Dose: Not Given Aspirin (Aspirin Chewable) [address] [facility] Last Admin: 04/03/17 14:13 Dose: 81 mg Carvedilol (Coreg) [address] [facility] Last Admin: 04/03/17 12:47 Dose: Not Given Clopidogrel Bisulfate (Plavix) [address] [facility] Last Admin: 04/03/17 14:13 Dose: 75 mg Heparin Sodium (Porcine) (Heparin) 4,[address] [facility] Last Admin: 04/03/17 10:43 Dose: 4,700 units Hydralazine HCl (Apresoline) [address] [facility] Last Admin: 04/03/17 12:47 Dose: Not Given Hydromorphone HCl (Dilaudid) 1 mg IVP Q6H PRN PRN Reason: Pain Last Admin: 04/03/17 12:06 Dose: 1 mg Insulin Glargine (Lantus) [address] [facility] Last Admin: 04/02/17 21:56 Dose: 10 units Levothyroxine Sodium (Synthroid) 50 mcg PO DAILY@0630 [facility] Last Admin: 04/02/17 05:35 Dose: 50 mcg Losartan Potassium (Cozaar) [address] [facility] Last Admin: 04/03/17 12:47 Dose: Not Given Ondansetron HCl (Zofran Inj) [address] [facility] Last Admin: 04/03/17 14:13 Dose: Not Given Sertraline HCl (Zoloft) [address] [facility] Last Admin: 04/03/17 14:13 Dose: 50 mg Sevelamer Carbonate (Renvela) [address] [facility] Last Admin: 04/03/17 12:48 Dose: Not Given Vitamin B Complex/Vit C/Folic Acid (Nephro-Courtney) [address] [facility] Last Admin: 04/03/17 08:48 Dose: 1 tab - Labs Labs: 04/01/17 09:23 04/01/17 09:23 PT 11.3 SECONDS (9.7-12.2) 03/29/17 13:10 INR 1.0 03/29/17 13:10 APTT 30 SECONDS (21-34) 03/29/17 13:10 - Respiratory Exam Additional comments: Lungs clear - Cardiovascular Exam Cardiovascular Exam: REGULAR RHYTHM - Extremities Exam Additional comments: B/L BKA Assessment and Plan - Assessment and Plan (Free Text) Assessment: ESRD on maintenance HD CAD HTN IDDM Plan: Dialysis was tolerated well today Labs stable Continue HDper schedule
[2017-04-03 17:44] VITALS: BP 95/74
--- NOTE | 2017-04-05 19:31 | CARD ---
APPROVED REPORT EKG Measurement Heart [id number] [place] [id number] [id number] <Conclusion> Normal sinus rhythm Left ventricular hypertrophy with repolarization abnormality Abnormal ECG
--- NOTE | 2017-04-05 19:34 | CARD ---
APPROVED REPORT EKG Measurement Heart [id number] [place] [id number] [id number] <Conclusion> Normal sinus rhythm Left ventricular hypertrophy with repolarization abnormality Abnormal ECG
--- NOTE | 2017-04-17 02:10 | DS ---
HISTORY OF PRESENT ILLNESS: The patient came in to the emergency room on 03/29/2017. He was discharged on 04/03/2017. This is the patient who is presented with abdominal pain and vomiting and he was having shortness of breath and chest pain. He has a history of coronary bypass, diabetes mellitus, insulin dependent and bilateral amputation. On interviewing, he was on discomfort. PHYSICAL EXAMINATION: VITAL SIGNS: Blood pressure 149/86 and pulse oximetry is okay. ABDOMEN: Tender. LUNGS: Decreased breath sounds. ADMISSION LABS: His labs at the time of admission, white count 15.1 and his sugar was 364. His BUN was 82 and creatinine 7.6. His potassium was 5.8. The patient was hospitalized and renal consult was called in and he was started on dialysis. He was also seen by Dr. Michaels, cardiology consultation. He has some diarrhea and he has been on and off short of breath. He has headache and dizziness. He was monitored for EKGs and cardiac enzymes. OK turned out to be EKG, consistent of nonspecific STT abnormalities, nothing new. He was already on pain medications, insulin coverage and blood pressure medications. He continued to have some vomiting and upset stomach and then improved and he was able to be discharged after dialysis on 04/03/2017. FINAL DIAGNOSES: 1. Acute gastritis. 2. Vomiting. 3. Abdominal pain. 4. Diarrhea. 5. End-stage renal failure. 6. Diabetes mellitus, insulin dependent, uncontrolled. 7. Coronary artery disease, stable. 8. Status post amputation. Sybil Li MD
== END 2017-04-03 15:30 | disposition home or self-care (01) | DRG 127 ==
LOC: C.ER 12:01 → C.9E 15:09 → C.6T 18:27 → C.5T 04-03 14:17
PROVIDERS: ADMIT Internal Medicine; ATTEND Internal Medicine
PROC: 5A1D60Z (ICD-10-PCS; principal; 2017-03-29)
DX: I13.2 Hypertensive heart and chronic kidney disease with heart failure and with stage 5 chronic kidney disease, or end stage renal disease (principal); N18.6 End stage renal disease; E11.22 Type 2 diabetes mellitus with diabetic chronic kidney disease; N25.81 Secondary hyperparathyroidism of renal origin; I48.92 Unspecified atrial flutter; E11.51 Type 2 diabetes mellitus with diabetic peripheral angiopathy without gangrene; I47.1 Supraventricular tachycardia; E87.5 Hyperkalemia; I50.9 Heart failure, unspecified; J44.9 Chronic obstructive pulmonary disease, unspecified; Z95.1 Presence of aortocoronary bypass graft; I25.10 Atherosclerotic heart disease of native coronary artery without angina pectoris; D63.1 Anemia in chronic kidney disease; Z95.5 Presence of coronary angioplasty implant and graft; Z79.4 Long term (current) use of insulin

== ENCOUNTER 2017-04-09 10:05 | Inpatient (IN) | payer OTHER ==
[2017-04-09 10:06] VITALS: PULSE 66; BMI 20.7
--- NOTE | 2017-04-09 10:41 | C.PDOC ---
History Of Present Illness 36 y/o male brought to ED by EMS for evaluation of chest pain and sob that began approx 45 min [employer], while patient was sitting at home. Patient also reports feeling lightheaded and has a mild headache. PMHx of ESRD on HD (due today). Patient denies abdominal pain, cough, fever, vomiting/diarrhea. Time Seen by Provider: 04/09/17 10:21 Chief Complaint (Nursing): Chest Pain History Per: Patient History/Exam Limitations: no limitations Onset/Duration Of Symptoms: Hrs Current Symptoms Are (Timing): Still Present Severity: Moderate Quality: "Pain" Past Medical History Reviewed: Historical Data, Nursing Documentation, Vital Signs Vital Signs: Last Vital Signs Temp 97.6 F 04/11/17 16:00 Pulse 58 L 04/11/17 19:30 Resp 14 04/11/17 19:11 BP 98/47 L 04/11/17 19:11 Pulse Ox 100 04/11/17 19:30 - Medical History PMH: Alzheimer's Disease, Anemia, Anxiety, Arthritis, Asthma, Atrial Fibrillation, Bronchitis, CAD, Cardia Arrhythmia, CHF, COPD, CVA, Depression, Diabetes, Deep Vein Thrombosis, Gastrointestinal Ulcer, Gall Bladder Disease, HTN, Hypercholesterolemia, Hypothyroidism, Pneumonia, End Stage Renal Disease, Chronic Kidney Disease, Seizures Surgical History: CABG (12/2009), Cholecystectomy (2011), Coronary Stent - [facility] Procedures ABDOMINAL WALL SINOGRAM (12/31/13) C.A.T. SCAN OF ABDOMEN (10/31/13) CENTRAL VENOUS CATHETER PLACEMENT WITH GUIDANCE (02/10/15) DILATE R ANT TIB ART W DRUG-ELUT INTRALUM, PERC (08/12/15) DILATION OF LEFT FEMORAL ARTERY, PERCUTANEOUS APPROACH (07/04/16) DILATION OF RIGHT FEMORAL ARTERY, PERCUTANEOUS APPROACH (08/12/15) DILATION OF RIGHT POPLITEAL ARTERY, PERCUTANEOUS APPROACH (08/12/15) DX ULTRASOUND-HEART (01/05/13) ENTERAL INFUSION OF CONCENTRATED NUT. SUBSTANCES (06/28/13) EXCIS DEBRIDE OF WOUND, INFECT, OR BURN (08/03/14) EXCISION OF STOMACH, ENDO, DIAGN (03/03/17) EXTIRPATION OF MATTER FROM L FEM ART, PERC APPROACH (07/04/16) EXTIRPATION OF MATTER FROM R FEM ART, PERC APPROACH (08/12/15) EXTIRPATION OF MATTER FROM R POPL ART, PERC APPROACH (08/12/15) FLUOROSCOPY OF L LOW EXTREM ART USING L OSM CONTRAST (08/12/15) FLUOROSCOPY OF R LOW EXTREM ART USING L OSM CONTRAST (08/12/15) FREE SKIN GRAFT NEC (08/03/14) HEAD SOFT TISS X-RAY NEC (04/15/13) HEMODIALYSIS (04/28/15) INCIS W REM OF FORIEGN BODY OR DEV FROM SKIN & SUBCUT TISSUE (08/08/13) INSERTION OF INFUSION DEV INTO R SUBCLAV VEIN, PERC APPROACH (01/19/16) INSERTION OF INFUSION DEV INTO SUP VENA CAVA, PERC APPROACH (02/20/17) INSPECTION OF UPPER INTESTINAL TRACT, ENDO (03/03/17) INTRODUCE OF OTH THROMBOLYTIC INTO PERIPH ART, PERC APPROACH (08/12/15) LAPAROSCOPIC CHOLECYSTECTOMY (09/21/13) LOC EXC LES METATAR/TAR (06/01/14) PACKED CELL TRANSFUSION (06/01/14) PERCUTAN LIVER ASPIRAT (12/31/13) PERFORMANCE OF URINARY FILTRATION, MULTIPLE (04/09/17) PERFORMANCE OF URINARY FILTRATION, SINGLE (12/18/16) SKIN & SUBQ INCISION NEC (10/24/14) TETANUS TOXOID ADMINIST (06/13/14) TRANSFUSE NONAUT RED BLOOD CELLS IN PERIPH VEIN, PERC (04/09/17) ULTRASONOGRAPHY OF RIGHT AND LEFT HEART (04/09/17) ULTRASONOGRAPHY OF SUPERIOR VENA CAVA, GUIDANCE (02/20/17) VENOUS CATHETERIZATION FOR RENAL DIALYSIS (08/08/13) VENOUS CATHETERIZATION NEC (04/30/13) Family History: States: No Known Family Hx - Social History Hx Tobacco Use: No Hx Alcohol Use: No Hx Substance Use: No - Immunization History Hx Tetanus Toxoid Vaccination: Yes Hx Influenza Vaccination: No Hx Pneumococcal Vaccination: Yes Review Of Systems Except As Marked, All Systems Reviewed And Found Negative. Constitutional: Negative for: Fever, Chills Cardiovascular: Positive for: Chest Pain. Negative for: Palpitations Respiratory: Positive for: Shortness of Breath. Negative for: Cough Gastrointestinal: Negative for: Nausea, Vomiting, Abdominal Pain, Diarrhea Skin: Negative for: Rash Neurological: Positive for: Headache, Dizziness. Negative for: Weakness, Numbness Physical Exam - Physical Exam Appears: Well, Non-toxic, Other (In mild to moderate pain, speaking in full sentences) Skin: Normal Color, Warm, Dry, No Rash Head: Normacephalic Eye(s): bilateral: Other (Patient is blind) Oral Mucosa: Moist Chest: Symmetrical Cardiovascular: Rhythm Regular Respiratory: Rales (at B/L bases), No Rhonchi, No Wheezing Gastrointestinal/Abdominal: Normal Exam, Bowel Sounds, Soft, No Tenderness, No Guarding, No Rebound Extremity: Other (Right BKA, Left AKA) Neurological/Psych: Other (awake, alert and oriented) ED Course And Treatment - Laboratory Results Result Diagrams: 04/11/17 03:48 04/11/17 03:48 O2 Sat by Pulse Oximetry: 95 (RA) Pulse Ox Interpretation: Normal - Other Rad cxr X-Ray: Viewed By Me, Read By Radiologist Interpretation: Accession No. : [id number]. Patient Name / ID : SALVATORE VALLADARES / [id number]. Exam Date : 04/09/2017 10:40:02 ( Approved ). Study Comment : Sex / Age : M / 36Y. Creator : Kendall Maya MD. Dictator : Kendall Maya MD. Community Dietitian : Mental Health Associate : Kendall Maya MD. Approver2 : Report Date : 04/09/2017 11:08:08. My Comment : . PROCEDURE: CHEST RADIOGRAPH, 1 VIEW. HISTORY: Chest pain. COMPARISON: 04/09/2017. FINDINGS: LUNGS: Persistent dense consolidative changes at the left lung base. Prominent diffuse increased interstitial lung markings bilaterally suggestive for underlying edema and or infiltrate. More patchy left basilar airspace opacities. PLEURA: Question small left pleural effusion. CARDIOVASCULAR: Status post median sternotomy. Mild cardiomegaly. Postsurgical changes and or extensive calcification of the coronary arteries. OSSEOUS STRUCTURES: Degenerative changes in the spine. VISUALIZED UPPER ABDOMEN: Normal. OTHER FINDINGS: Lines and tubes stable position. IMPRESSION: Persistent dense consolidative changes at the left lung base. Prominent diffuse increased interstitial lung markings bilaterally suggestive for underlying edema and or infiltrate. More patchy left basilar airspace opacities. Question small left pleural effusion. Status post median sternotomy. Mild cardiomegaly. Postsurgical changes and or extensive calcification of the coronary arteries. Progress Note: Blood work, CXR, EKG ordered and reviewed. Patient given PO ASA , IV fentanyl for pain. Spoke with Dr. Li, who accepsts patient for admission - chest pain, fluid overload, esrd on HD, possible pneumonia. Dr. Everett on blue list, requests admission change to Dr. Evelin olvera notified him. - Physician Consult Information Physician Contacted: Leonides Escobar Outcome Of Conversation: Discussed EKG/patient with Dr. Shay, in agreement that this does not meet code heart criteria, essecially unchanged from prior EKG , and only elevated in 1 lead (III). Disposition - Disposition Disposition: HOSPITALIZED Disposition Time: 14:21 Condition: STABLE - Clinical Impression Clinical Impression: Chest pain, Leukocytosis, Fluid overload, CHF (congestive heart failure), Pneumonia - Scribe Statement The provider has reviewed the documentation as recorded by the Scribe Esdras Tsai All medical record entries made by the Scribe were at my direction and personally dictated by me. I have reviewed the chart and agree that the record accurately reflects my personal performance of the history, physical exam, medical decision making, and the department course for this patient. I have also personally directed, reviewed, and agree with the discharge instructions and disposition. Decision To Admit - Pt Status Changed To: Hospital Disposition Of: Inpatient - Admit Certification Admit to Inpatient:: After my assessment, the patient will require hospitalization for at least two midnights. This is because of the severity of symptoms shown, intensity of services needed, and/or the medical risk in this patient being treated as an outpatient. - InPatient: Physician Admission Certification: I certify that this patient requires 2 or more midnights of care for the following reason:: see notes - . Bed Request Type: Telemetry Admitting Physician: Kimbrely Liao Patient Diagnosis: Chest pain, CHF (congestive heart failure), Fluid overload, Leukocytosis, Pneumonia
--- NOTE | 2017-04-09 11:09 | RAD ---
PROCEDURE: CHEST RADIOGRAPH, 1 VIEW HISTORY: Chest pain COMPARISON: 04/09/2017 FINDINGS: LUNGS: Persistent dense consolidative changes at the left lung base. Prominent diffuse increased interstitial lung markings bilaterally suggestive for underlying edema and or infiltrate. More patchy left basilar airspace opacities. PLEURA: Question small left pleural effusion. CARDIOVASCULAR: Status post median sternotomy. Mild cardiomegaly. Postsurgical changes and or extensive calcification of the coronary arteries. OSSEOUS STRUCTURES: Degenerative changes in the spine. VISUALIZED UPPER ABDOMEN: Normal. OTHER FINDINGS: Lines and tubes stable position. IMPRESSION: Persistent dense consolidative changes at the left lung base. Prominent diffuse increased interstitial lung markings bilaterally suggestive for underlying edema and or infiltrate. More patchy left basilar airspace opacities. Question small left pleural effusion. Status post median sternotomy. Mild cardiomegaly. Postsurgical changes and or extensive calcification of the coronary arteries.
[2017-04-09 11:35] LABS: BASO # 0.1 K/uL (0.0-0.2); BASO % 0.5 % (0.0-2.0); EOS # 0.4 K/uL (0.0-0.7); EOS % 2.3 % (0.0-4.0); HEMATOCRIT 25.8 % (35.0-51.0); LYMPH % 11.1 % (20.0-40.0); MEAN CELL VOLUME 90.3 fL (80.0-94.0); MEAN CORPUSCULAR HEMOGLOBIN 28.3 pg (27.0-31.0); MEAN CORPUSCULAR HGB CONC 31.3 g/dL (33.0-37.0); MEAN PLATELET VOLUME 10.2 fL (7.2-11.7); MONO % 5.3 % (0.0-10.0); RED CELL DISTRIBUTION WIDTH 18.7 % (11.5-14.5); WHITE BLOOD COUNT 18.3 K/uL (4.8-10.8)
[2017-04-09 11:41] LABS: INR 1.1
[2017-04-09] MEDS ORDERED: Aspirin 325 mg EC Tablets PO ONE (12:06)
[2017-04-09 12:47] LABS: CHLORIDE 87 mmol/L (98-107); SODIUM 127 mmol/L (132-148)
[2017-04-09 12:49] LABS: GFR AFRICAN-AMERICAN 12
[2017-04-09 12:50] LABS: ALKALINE PHOSPHATASE 184 U/L (38-126); ALT/SGPT 22 U/L (21-72); AST/SGOT 20 U/L (17-59); BILIRUBIN,TOTAL 0.6 mg/dL (0.2-1.3); BLOOD UREA NITROGEN 66 mg/dL (9-20); CALCIUM 8.6 mg/dl (8.6-10.4); CARBON DIOXIDE 23 mmol/L (22-30); GLUCOSE,RANDOM 389 mg/dL (75-110); TOTAL PROTEIN 6.3 g/dL (6.3-8.3)
[2017-04-09 12:57] LABS: POTASSIUM 5.9 mmol/L (3.6-5.2)
[2017-04-09] MEDS ORDERED: Moxifloxacin IV 400mg/250ml NS 400 MG/250 ML BAG IV ONE (14:23)
[2017-04-09] MEDS ORDERED: Moxifloxacin IV 400mg/250ml NS 400 MG/250 ML BAG IVPB ONE (14:37)
[2017-04-09] MEDS: Ranolazine 500 mg Extended Release Tablets PO SCH (18:06)
[2017-04-09] MEDS ORDERED: (Novolog) Insulin Aspart, Recombinant 100 u/ml 10 ml vial SC ONE (18:35)
[2017-04-09] MEDS: (Novolog) Insulin Aspart, Recombinant 100 u/ml 10 ml vial SC SCH (22:01)
[2017-04-09] MEDS: (Lantus) Insulin Glargine, Recombinant SC SCH (22:03)
[2017-04-10] MEDS: (Novolog) Insulin Aspart, Recombinant 100 u/ml 10 ml vial SC SCH ×3 (08:17→21:48)
--- NOTE | 2017-04-10 08:18 | CP.PCM.PN ---
Subjective - Date & Time of Evaluation Date of Evaluation: 04/10/17 Time of Evaluation: 07:40 - Subjective Subjective: PGY-[address] Liao Patient seen and examined at bedside. No acute events overnight. Patient complains generalized weakness and chest pain improved compared to yesterday. Patient denies headache, fever, chills, nausea, or vomiting. Objective - Vital Signs/Intake and Output Vital Signs (last 24 hours): Temp Pulse Resp BP Pulse Ox 99.8 F H 65 20 99/60 L 96 04/09/17 23:27 04/10/17 00:45 04/09/17 23:27 04/10/17 05:03 04/09/17 23:27 Intake and Output: 04/10/17 04/10/17 06:59 18:59 Intake Total 340 Balance 340 - Medications Medications: Current Medications Amlodipine Besylate (Norvasc) 10 [facility] Aspirin (Aspirin Chewable) 81 mg PO [facility]ILY [facility] Carvedilol (Coreg) 25 mg PO BID [facility] Last Admin: 04/09/17 18:06 Dose: 25 mg Diphenhydramine HCl (Benadryl) 25 mg PO Q8 PRN PRN Reason: Allergy symptoms Hydralazine HCl (Apresoline) 100 mg PO Q8 [facility] Last Admin: 04/10/17 05:02 Dose: Not Given Hydromorphone HCl (Dilaudid) 1 mg IVP Q8H PRN PRN Reason: Pain, severe (8-10) Last Admin: 04/09/17 19:03 Dose: 1 mg Insulin Aspart (Novolog) [address] [facility] PRN Reason: Protocol Last Admin: 04/10/17 08:17 Dose: Not Given Insulin Glargine (Lantus) 18 unit SC HS [facility] Last Admin: 04/09/17 22:03 Dose: 18 units Isosorbide Mononitrate (Imdur) 60 mg PO DAILY [facility] Morphine Sulfate (Morphine) 2 mg IVP Q4 PRN PRN Reason: Pain, severe (8-10) Pantoprazole Sodium (Protonix Ec Tab) 40 mg PO DAILY [facility] Ranolazine (Ranexa) 500 mg PO BID [facility] Last Admin: 04/09/17 18:06 Dose: 500 mg Rosuvastatin Calcium (Crestor) 10 mg PO HS [facility] - Labs Labs: PT 12.5 SECONDS (9.7-12.2) H 04/09/17 11:26 INR 1.1 04/09/17 11:26 APTT 26 SECONDS (21-34) 04/09/17 11:26 - Constitutional Appears: Non-toxic, No Acute Distress, Chronically Ill - Head Exam Head Exam: ATRAUMATIC, NORMAL INSPECTION - Eye Exam Eye Exam: EOMI, Normal appearance - ENT Exam ENT Exam: Mucous Membranes Moist - Neck Exam Neck Exam: Normal Inspection - Respiratory Exam Respiratory Exam: Clear to Ausculation Bilateral, NORMAL BREATHING PATTERN. absent: Respiratory Distress - Cardiovascular Exam Cardiovascular Exam: REGULAR RHYTHM, +S1, +S2 - GI/Abdominal Exam GI & Abdominal Exam: Soft, Normal Bowel Sounds - Extremities Exam Additional comments: Right side BKA, left side AKA - Neurological Exam Neurological Exam: Alert, Awake, Oriented x3 - Psychiatric Exam Psychiatric exam: Normal Affect, Normal Mood - Skin Skin Exam: Normal Color, Warm Assessment and Plan - Assessment and Plan (Free Text) Assessment: ESRD on HD -Nephrology consult, help appreciated -Dialysis this afternoon -Patient received 1 unit of PRBC -Short dialysis tomorrow, adjust to T, TH, schedule -Monitor electrolytes Chest pain r/o acs -Troponin negative x3 -Cardiology consult, help appreciated -EKG in ED unchanged from previous -Dilaudid 1mg Q8 prn -ASA -Imdur -Ranexa HLD -Crestor 10mg po HTN -Coreg 25mg PO BID -Hydralzine 100mg po q8 -Norvasc 10mg po -Monitor BP, will hold meds if hypotensive DM -Lantus 18 units HS -ISS -accucheck ACHS Prophylactic measures -Heparin -Protonix -Benadryl Case discussed with Dr. Liao. All management per Dr. Liao.
[2017-04-10 08:45] LABS: BASO # 0.1 K/uL (0.0-0.2); BASO % 0.4 % (0.0-2.0); EOS # 0.1 K/uL (0.0-0.7); EOS % 0.5 % (0.0-4.0); HEMATOCRIT 24.2 % (35.0-51.0); LYMPH # 1.5 K/uL (1.0-4.3); LYMPH % 7.8 % (20.0-40.0); MEAN CELL VOLUME 88.6 fL (80.0-94.0); MEAN CORPUSCULAR HEMOGLOBIN 28.4 pg (27.0-31.0); MEAN PLATELET VOLUME 9.9 fL (7.2-11.7); MONO # 1.4 K/uL (0.0-0.8); MONO % 7.1 % (0.0-10.0); NRBC % 0.1 % (0.0-2.0); RED CELL DISTRIBUTION WIDTH 19.4 % (11.5-14.5); WHITE BLOOD COUNT 19.5 K/uL (4.8-10.8)
[2017-04-10 08:51] LABS: POTASSIUM 6.1 mmol/L (3.6-5.2)
[2017-04-10 08:53] LABS: BILIRUBIN,TOTAL 0.5 mg/dL (0.2-1.3); TOTAL PROTEIN 5.5 g/dL (6.3-8.3)
[2017-04-10 08:54] LABS: CALCIUM 8.6 mg/dl (8.6-10.4)
[2017-04-10 08:58] LABS: PLATELET COUNT 106 K/uL (130-400)
[2017-04-10 09:40] LABS: NEUTROPHIL 86 % (50-75); TOTAL CELLS COUNTED 100
[2017-04-10] MEDS: Ranolazine 500 mg Extended Release Tablets PO SCH ×2 (10:00→18:24)
[2017-04-10] MEDS: Pantoprazole 40 mg EC Tab PO SCH (10:00)
[2017-04-10] MEDS ORDERED: EPOETIN ALFA 4,000 UNIT/ML ML Dialysis IV ONE (13:00)
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
[2017-04-10] MEDS ORDERED: Piperacillin/Tazobact 2.25 GM in Sodium Chloride 100 ML IVPB ONE (19:00)
[2017-04-10] MEDS ORDERED: Heparin25000 units/250ml 1/2NS 25,000 UNITS/250 ML BAG IV PRN (19:00)
--- NOTE | 2017-04-10 19:12 | CARD ---
APPROVED REPORT EXAM: Two-dimensional and M-mode echocardiogram with Doppler and color Doppler. Other Information Quality : GoodRhythm : NSR INDICATION CAD Chest Pain Congestive Heart Failure Dialysis RISK FACTORS Diabetes 2D DIMENSIONS LVOT Diameter1.9 (1.8-2.4cm)RVOT Diameter2.1 cm M-Mode DIMENSIONS RVDd2.45 (2.1-3.2cm)Left Atrium (MM)4.09 (2.5-4.0cm) IVSd1.04 (0.7-1.1cm)Aortic Root2.48 (2.2-3.7cm) LVDd4.40 (4.0-5.6cm)Aortic Cusp Exc.1.92 (1.5-2.0cm) PWd1.07 (0.7-1.1cm)FS (%) 39 % LVDs2.68 (2.0-3.8cm)LVEF (%)70 (>50%) Aortic Valve AoV Peak Aeodzlrv405.1cm/sAoV VTI41.1cmAO Peak GR.19mmHg LVOT Peak Ukuopmdn613.8cm/sLVOT VTI27.43cmAO Mean GR.11mmHg WILMAR (VMAX)1.17ga3ILJ (VTI)1.95cm2 Mitral Valve MV E Sdrnbgfw847.4cm/sMV A Nswewipv76.7cm/sE/A ratio1.2 TDI E/Lateral E'0.0E/Medial E'0.0 Pulmonary Valve PV Peak Ozhyushi587.2cm/sPV Peak Grad.14mmHg Tricuspid Valve TR Peak Wcyzgyzd104wh/sTR Peak Gr.88awSnLSUI43saMz LEFT VENTRICLE The left ventricle is normal size. There is normal left ventricular wall thickness. The left ventricular function is normal. The left ventricular ejection fraction is within the normal range. There is normal LV segmental wall motion. The left ventricular diastolic function is normal. RIGHT VENTRICLE The right ventricle is normal size. ATRIA The left atrium size is normal. The right atrium size is normal. AORTIC VALVE There is mild valvular aortic stenosis. MITRAL VALVE The mitral valve is normal in structure. TRICUSPID VALVE There is moderate to severe tricuspid regurgitation. <Conclusion> Normal LV systoli cfunction. Mils . Large floating mass in RA/RV. Consider HONORIO. [facility]oo[employer] notified.
--- NOTE | 2017-04-10 19:25 | CARD ---
APPROVED REPORT EKG Measurement Heart [id number] FL [id number] <Conclusion> Normal sinus rhythm Left ventricular hypertrophy with repolarization abnormality Abnormal ECG
[2017-04-10] MEDS ORDERED: Vancomycin 1 gm/NS 200 ml 1 GM/200 ML BAG IVPB ONE (20:00)
[2017-04-10] MEDS: (Lantus) Insulin Glargine, Recombinant SC SCH (21:49)
[2017-04-11 03:53] LABS: BASO % 0.4 % (0.0-2.0); EOS # 0.1 K/uL (0.0-0.7); HEMATOCRIT 28.5 % (35.0-51.0); MEAN CELL VOLUME 90.7 fL (80.0-94.0)
[2017-04-11 04:00] LABS: EOS % 0.7 % (0.0-4.0); LYMPH # 1.3 K/uL (1.0-4.3); LYMPH % 10.1 % (20.0-40.0); MEAN CORPUSCULAR HEMOGLOBIN 29.5 pg (27.0-31.0); MEAN CORPUSCULAR HGB CONC 32.5 g/dL (33.0-37.0); MONO % 7.9 % (0.0-10.0); RED CELL DISTRIBUTION WIDTH 18.2 % (11.5-14.5); WHITE BLOOD COUNT 13.2 K/uL (4.8-10.8)
[2017-04-11 04:14] LABS: BILIRUBIN,TOTAL 0.8 mg/dL (0.2-1.3); CALCIUM 8.1 mg/dl (8.6-10.4); PHOSPHOROUS 3.9 mg/dL (2.5-4.5); TOTAL PROTEIN 6.1 g/dL (6.3-8.3)
[2017-04-11 04:18] LABS: ALB/GLOB RATIO 0.8 (1.0-2.1)
[2017-04-11 04:19] LABS: POTASSIUM 4.9 mmol/L (3.6-5.2)
[2017-04-11] MEDS ORDERED: Heparin25000 units/250ml 1/2NS 25,000 UNITS/250 ML BAG IV PRN (05:30)
[2017-04-11] MEDS: (Novolog) Insulin Aspart, Recombinant 100 u/ml 10 ml vial SC SCH ×4 (09:58→16:49)
[2017-04-11] MEDS ORDERED: Lidocaine 4% (Laryng-O-Jet) Kit MM ONE (10:26)
--- NOTE | 2017-04-11 11:16 | CP.PCM.PN ---
Subjective - Date & Time of Evaluation Date of Evaluation: 04/11/17 Time of Evaluation: 10:50 - Subjective Subjective: No SOB noted Pt transferred to ICU last pm. Found to have Rt atrial mass on Echo Objective - Vital Signs/Intake and Output Vital Signs (last 24 hours): Temp Pulse Resp BP Pulse Ox 99.1 F 65 11 L 107/52 L 100 04/11/17 08:00 04/11/17 10:40 04/11/17 10:40 04/11/17 09:45 04/11/17 10:40 Intake and Output: 04/11/17 04/11/17 06:59 18:59 Intake Total 924.6 27 Output Total 2 Balance 922.6 27 - Medications Medications: Current Medications Amlodipine Besylate (Norvasc) 10 mg PO DAILY [facility] Aspirin (Aspirin Chewable) 81 mg PO DAILY [facility] Last Admin: 04/10/17 10:00 Dose: Not Given Carvedilol (Coreg) 25 mg PO BID [facility] Last Admin: 04/10/17 18:23 Dose: Not Given Diphenhydramine HCl (Benadryl) 25 mg PO Q8 PRN PRN Reason: Allergy symptoms Hydralazine HCl (Apresoline) 100 mg PO Q8 [facility] Last Admin: 04/11/17 06:15 Dose: Not Given Hydromorphone HCl (Dilaudid) 1 mg IVP Q8H PRN PRN Reason: Pain, severe (8-10) Last Admin: 04/11/17 03:34 Dose: 1 mg Vancomycin HCl 500 mg/ Sodium (Chloride) 100 mls @ 100 mls/hr IVPB TTS [facility] Heparin Sodium/Sodium Chloride (Heparin 97216 Units/250ml 1/2 Normal Saline) 25 ,000 units in 250 mls @ 9.017 mls/hr IV .Q24H PRN; Protocol; 14 UNITS/KG/HR PRN Reason: PROTOCOL Insulin Aspart (Novolog) 0 unit SC ACHS [facility] PRN Reason: Protocol Last Admin: 04/11/17 09:59 Dose: 8 unit Insulin Glargine (Lantus) 18 unit SC HS [facility] Last Admin: 04/10/17 21:49 Dose: 18 units Isosorbide Mononitrate (Imdur) 60 mg PO DAILY [facility] Last Admin: 04/10/17 10:00 Dose: Not Given Morphine Sulfate (Morphine) 2 mg IVP Q4 PRN PRN Reason: Pain, severe (8-10) Pantoprazole Sodium (Protonix Ec Tab) 40 mg PO DAILY [facility] Last Admin: 04/10/17 10:00 Dose: Not Given Ranolazine (Ranexa) 500 mg PO BID [facility] Last Admin: 04/10/17 18:24 Dose: Not Given Rosuvastatin Calcium (Crestor) 10 mg PO HS [facility] Last Admin: 04/10/17 23:36 Dose: 10 mg - Labs Labs: 04/11/17 03:48 04/11/17 03:48 PT 12.5 SECONDS (9.7-12.2) H 04/09/17 11:26 INR 1.1 04/09/17 11:26 APTT 39 SECONDS (21-34) H D 04/11/17 04:31 - Respiratory Exam Additional comments: Lungs clear - Cardiovascular Exam Cardiovascular Exam: REGULAR RHYTHM Additional comments: S1,S2 Systolic murmur @ LSB - Extremities Exam Additional comments: B/L BKA Assessment and Plan - Assessment and Plan (Free Text) Assessment: ESRD on HD, TTS Leukocytosis, Rt atrial mass, r/o endocarditis CAD/CABG IDDM Plan: Blood cultures were done. Received Vanco 1 g yesterday HONORIO is done now Will continue with dialysis TTS Post transfusion Hb 9.3
[2017-04-11] MEDS ORDERED: Vancomycin 1 gm/NS 200 ml 1 GM/200 ML BAG IVPB STA (11:29)
[2017-04-11] MEDS ORDERED: Midazolam 2 MG/2 ML VIAL ONE (11:57)
[2017-04-11] MEDS ORDERED: Etomidate 20 mg/10ml Inj IV ONE (11:57)
[2017-04-11] MEDS ORDERED: Phenylephrine 10 mg/ml Inj ONE (11:58)
[2017-04-11] MEDS ORDERED: Propofol 10 mg/ml Inj (20 ML) ONE (11:59)
[2017-04-11] MEDS: Ranolazine 500 mg Extended Release Tablets PO SCH ×2 (12:55→17:40)
[2017-04-11] MEDS: Pantoprazole 40 mg EC Tab PO SCH (12:55)
--- NOTE | 2017-04-11 14:45 | CP.PCM.PN ---
Subjective - Date & Time of Evaluation Date of Evaluation: 04/11/17 Time of Evaluation: 07:30 - Subjective Subjective: PGY [address] Liao: Patient seen and examined at bedside. No acute events overnight. Patient complains generalized weakness and chest pain improved compared to yesterday. Patient denies headache, fever, chills, nausea, or vomiting. He had HONORIO performed today by Dr. Boston which confirmed large thrombus. Per Dr Boston Patient to be transferred to [facility] for acceptance by Dr. Hopkins for immediate surgery to remove the thrombi. Patient is to be transported via ACLS transport and kept on heparin drip. EMTALA form signed. Consent obtained from the patient's sister Nimo Kim who can be reached at . Objective - Vital Signs/Intake and Output Vital Signs (last 24 hours): Temp Pulse Resp BP Pulse Ox 98.9 F 51 L 12 104/27 L 100 04/11/17 12:00 04/11/17 14:08 04/11/17 14:08 04/11/17 14:08 04/11/17 14:08 Intake and Output: 04/11/17 04/11/17 06:59 18:59 Intake Total 924.6 54 Output Total 2 Balance 922.6 54 - Medications Medications: Current Medications Amlodipine Besylate (Norvasc) 10 mg PO DAILY [facility] Aspirin (Aspirin Chewable) 81 mg PO DAILY [facility] Last Admin: 04/11/17 12:54 Dose: Not Given Carvedilol (Coreg) 25 mg PO BID [facility] Last Admin: 04/11/17 12:54 Dose: Not Given Diphenhydramine HCl (Benadryl) 25 mg PO Q8 PRN PRN Reason: Allergy symptoms Hydralazine HCl (Apresoline) 100 mg PO Q8 [facility] Last Admin: 04/11/17 06:15 Dose: Not Given Hydromorphone HCl (Dilaudid) 1 mg IVP Q8H PRN PRN Reason: Pain, severe (8-10) Last Admin: 04/11/17 03:34 Dose: 1 mg Vancomycin HCl 500 mg/ Sodium (Chloride) 100 mls @ 100 mls/hr IVPB TTS [facility] Heparin Sodium/Sodium Chloride (Heparin 56932 Units/250ml 1/2 Normal Saline) 25 ,000 units in 250 mls @ 9.017 mls/hr IV .Q24H PRN; Protocol; 14 UNITS/KG/HR PRN Reason: PROTOCOL Insulin Aspart (Novolog) 0 unit SC ACHS [facility] PRN Reason: Protocol Last Admin: 04/11/17 09:59 Dose: 8 unit Insulin Glargine (Lantus) 18 unit SC [facility] Last Admin: 04/10/17 21:49 Dose: 18 units Isosorbide Mononitrate (Imdur) 60 mg PO DAILY [facility] Last Admin: 04/11/17 12:54 Dose: Not Given Morphine Sulfate (Morphine) 2 mg IVP Q4 PRN PRN Reason: Pain, severe (8-10) Pantoprazole Sodium (Protonix Ec Tab) 40 mg PO DAILY [facility] Last Admin: 04/11/17 12:55 Dose: Not Given Ranolazine (Ranexa) 500 mg PO BID [facility] Last Admin: 04/11/17 12:55 Dose: Not Given Rosuvastatin Calcium (Crestor) 10 mg PO [facility] Last Admin: 04/10/17 23:36 Dose: 10 mg - Labs Labs: 04/11/17 03:48 04/11/17 03:48 PT 12.5 SECONDS (9.7-12.2) H 04/09/17 11:26 INR 1.1 04/09/17 11:26 APTT 39 SECONDS (21-34) H D 04/11/17 04:31 - Constitutional Appears: Non-toxic, No Acute Distress, Chronically Ill - Head Exam Head Exam: ATRAUMATIC, NORMAL INSPECTION - Eye Exam Eye Exam: EOMI Pupil Exam: NORMAL ACCOMODATION - ENT Exam ENT Exam: Mucous Membranes Moist Additional comments: pt is blind - Respiratory Exam Respiratory Exam: Clear to Ausculation Bilateral, NORMAL BREATHING PATTERN - Cardiovascular Exam Cardiovascular Exam: REGULAR RHYTHM, +S1, +S2 - GI/Abdominal Exam GI & Abdominal Exam: Soft, Normal Bowel Sounds. absent: Distended, Firm, Guarding, Tenderness - Extremities Exam Additional comments: b/l leg amputation - Back Exam Back Exam: NORMAL INSPECTION - Neurological Exam Neurological Exam: Alert, Awake - Psychiatric Exam Psychiatric exam: Normal Affect, Normal Mood Assessment and Plan - Assessment and Plan (Free Text) Assessment: ESRD on HD -Nephrology consult, help appreciated -Dialysis this afternoon -Patient received 1 unit of PRBC -Short dialysis tomorrow, adjust to T, TH, Sa schedule -Monitor electrolytes Chest pain r/o acs -Troponin negative x3 -Cardiology consult, help appreciated -EKG in ED unchanged from previous -Dilaudid 1mg Q8 prn -ASA -Imdur -Ranexa HLD -Crestor 10mg po HTN -Coreg 25mg PO BID -Hydralzine 100mg po q8 -Norvasc 10mg po -Monitor BP, will hold meds if hypotensive DM -Lantus 18 units HS -ISS -accucheck ACHS Prophylactic measures -Heparin -Protonix -Benadryl Case discussed with Dr. Liao. All management per Dr. Liao. Patient to be transferred to [facility] for acceptance by Dr. Hopkins for immediate surgery to romve the thrombi in the heart found on HONORIO today 04/11. Patient is to be transported via ACLS transport and kept on heparin drip. EMTALA form signed. Consent obtained from the patient's sister Nimo Kim who can be reached at .
[2017-04-11] MEDS ORDERED: Dextrose 5%/0.45% NS 1,000 ML IV SCH (16:30)
[2017-04-11 16:44] VITALS: TEMP 97.6
[2017-04-11 17:14] VITALS: PULSE 58
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
[2017-04-11 18:15] VITALS: RESP 14
--- NOTE | 2017-04-11 18:45 | CP.PCM.PN ---
Subjective - Date & Time of Evaluation Date of Evaluation: 04/11/17 Time of Evaluation: 18:42 - Subjective Subjective: s/p HONORIO today: confirming large mass highly suspicious for thrombus likely due to HD catheter. Plans are being made to Tx to [facility] for open evacuation/suction by CTS On emperic ABX PLT count dropped from 100's to 70: on Heparin GTT Known to be chronically anemic with mild reduction in H/H at 7.2 Objective - Vital Signs/Intake and Output Vital Signs (last 24 hours): Temp Pulse Resp BP Pulse Ox 97.6 F 58 L 14 88/29 L 100 04/11/17 16:00 04/11/17 18:11 04/11/17 18:11 04/11/17 18:11 04/11/17 18:11 Intake and Output: 04/11/17 04/11/17 06:59 18:59 Intake Total 924.6 90 Output Total 2 Balance 922.6 90 - Medications Medications: Current Medications Amlodipine Besylate (Norvasc) 10 mg PO DAILY [facility] Aspirin (Aspirin Chewable) 81 mg PO DAILY [facility] Last Admin: 04/11/17 12:54 Dose: Not Given Carvedilol (Coreg) 25 mg PO BID [facility] Last Admin: 04/11/17 17:24 Dose: Not Given Diphenhydramine HCl (Benadryl) 25 mg PO Q8 PRN PRN Reason: Allergy symptoms Hydralazine HCl (Apresoline) 100 mg PO Q8 [facility] Last Admin: 04/11/17 16:45 Dose: Not Given Hydromorphone HCl (Dilaudid) 1 mg IVP Q8H PRN PRN Reason: Pain, severe (8-10) Last Admin: 04/11/17 17:30 Dose: 1 mg Vancomycin HCl 500 mg/ Sodium (Chloride) 100 mls @ 100 mls/hr IVPB TTS [facility] Heparin Sodium/Sodium Chloride (Heparin 73049 Units/250ml 1/2 Normal Saline) 25 ,000 units in 250 mls @ 9.017 mls/hr IV .Q24H PRN; Protocol; 14 UNITS/KG/HR PRN Reason: PROTOCOL Gentamicin Sulfate/Sodium Chloride (Gentamicin Iv 80 Mg Premix) 80 mg in 100 mls @ 100 mls/hr IVPB MWF [facility] Insulin Aspart (Novolog) 0 unit SC ACHS [facility] PRN Reason: Protocol Last Admin: 04/11/17 16:49 Dose: Not Given Insulin Glargine (Lantus) 18 unit SC HS [facility] Last Admin: 04/10/17 21:49 Dose: 18 units Isosorbide Mononitrate (Imdur) 60 mg PO DAILY [facility] Last Admin: 04/11/17 12:54 Dose: Not Given Morphine Sulfate (Morphine) 2 mg IVP Q4 PRN PRN Reason: Pain, severe (8-10) Pantoprazole Sodium (Protonix Ec Tab) 40 mg PO DAILY [facility] Last Admin: 04/11/17 12:55 Dose: Not Given Ranolazine (Ranexa) 500 mg PO BID [facility] Last Admin: 04/11/17 17:40 Dose: 500 mg Rosuvastatin Calcium (Crestor) 10 mg PO [facility] Last Admin: 04/10/17 23:36 Dose: 10 mg - Labs Labs: 04/11/17 03:48 04/11/17 03:48 PT 12.5 SECONDS (9.7-12.2) H 04/09/17 11:26 INR 1.1 04/09/17 11:26 APTT 39 SECONDS (21-34) H D 04/11/17 04:31 - Head Exam Head Exam: ATRAUMATIC, NORMAL INSPECTION, NORMOCEPHALIC - ENT Exam ENT Exam: Mucous Membranes Moist, Normal Oropharynx - Neck Exam Neck Exam: Normal Inspection - Respiratory Exam Respiratory Exam: Clear to Ausculation Bilateral. absent: Rhonchi, Wheezes - Cardiovascular Exam Cardiovascular Exam: REGULAR RHYTHM, +S1, +S2, Murmur. absent: +S4 - Extremities Exam Extremities Exam: absent: Normal Inspection (b/l BKA) - Neurological Exam Neurological Exam: Alert, Altered Assessment and Plan - Assessment and Plan (Free Text) Assessment: > Reports fever, documented leukocytosis: possible infectious process with lower than usual BP Echo done 04/09/17; Directly seen by me: Normal LVEF, mod LVH, moderate pulm HTN, Mobile 2.7cm mass on the tricuspid valve surface highly suspicious for thrombus versus infection. HONORIO done confirms suspicion for a catheter related thrombus in the RA. > ABX > Heparin GTT (HEME-Onc consult) due to low PLT and potential for HIT: may need change of AC to bivalirudin > Pending Tx to [facility] for definitive Rx of atrial thrombus > May need levophed for pressor support 1. CAD: hx of CABG and subsequent stent; patient CAD status is stable and should be medically treated wth Coreg,IMDUR/Statin. He has had normal LV function with chronic diastolic dysfunction. EKG: read by me: NSR, LVH with strain which is unchanged from prior. * LDL goal 50-70 * Diabetic control * ASA, Coreg, Imdur, ranexa * No active cardiac sx's; cont medical therapy. * Cont volume removal with HD 2. HTN: labile usually hypertensive on multiple meds; Now LOW BP consider sepsis Continue medical treatment as prescribed Hold blood pressure medications due to low BP resume when appropriate. 3. AFLUTTER in past : now NSR; noted sinus zaida; Amiodarone 200 daily if recurrence He had EP consultation: Atrial tachycardia & AFLUTTER to be treated with amiodarone. Given GI bleed patient at risk for coumadin for stroke prevention. Will defer any ablation until or unless clinically significant or uncontrollable arrythmia. * Currently anemia hgb improved: continue ASA 81 and plavix only. 4. DM: labile: Cont medical rx continued education and counseling management per primary team 5. PAD: S/P B/L BKA ASX No signs of ulcer or wound dehiscence 6. ESRD: Stable chem received interim HD: cont maintainence HD, Monitor lytes
[2017-04-11 19:42] VITALS: BP 98/47
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
[2017-04-12] MEDS ORDERED: Gentamicin 80 mg in 0.9% NS 80 MG/100 ML BAG IVPB SCH (09:00)
--- NOTE | 2017-04-13 10:36 | CARD ---
APPROVED REPORT EXAM: Transesophageal echocardiogram with color flow Doppler. INDICATION Chest Pain Congestive Heart Failure FLUID OVERLOAD, LEUKOCYTOSIS, RA ATRIAL CLOT Mitral Valve E/A ratio0.0 TDI E/Lateral E'0.0E/Medial E'0.0 Reason For Test : To assess Intra cardiac mass PROCEDURE After obtaining informed consent, patient underwent transesophageal echo in the [employer]. Type of Sedation : Conscious Sedation Sedation was provided by anesthesiologist. Sedation was achieved with intravenously. The HONORIO was performed complications. Throughout the procedure, the blood pressure, pulse oximetry, cardiac rhythm, and rate were monitored. The patient tolerated the procedure without adverse effects. Recovery from conscious sedation was uneventful and vital signs were stable. LEFT VENTRICLE The left ventricle is normal size. The left ventricular function is normal. The left ventricular ejection fraction is within the normal range. No left ventricle thrombus noted on this study. There is no ventricular septal defect visualized. RIGHT VENTRICLE The right ventricle is normal size. The right ventricular systolic function is normal. Large Mass/Vegetation/Thrombus oscillating between Right Atrium and Right ventricle. Does not appear that its attcahed to Dialysis catheter/Right atrial wall or Tricuspid leaflets ATRIA The left atrium size is normal. Mass/Thrombus/Vegetation The interatrial septum is intact with no evidence for an atrial septal defect. AORTIC VALVE The aortic valve is normal in structure. There is no aortic valvular stenosis. There is no aortic valvular vegetation. MITRAL VALVE The mitral valve is normal in structure. There is no mitral valve stenosis. Mitral regurgitation is mild. TRICUSPID VALVE The tricuspid valve is normal in structure. There is mild to moderate tricuspid regurgitation. As described There is no tricuspid valve stenosis. PULMONIC VALVE The pulmonary valve is normal in structure. GREAT VESSELS The aortic root is normal in size. <Conclusion> The left ventricular function is normal. The left ventricular ejection fraction is within the normal range. The right ventricle is normal size. Large Mass/Vegetation/Thrombus oscillating between Right Atrium and Right ventricle. Does not appear that its attcahed to Dialysis catheter/Right atrial wall or Tricuspid leaflets
[2017-04-14 13:39] LABS: HEPARIN-IND PLATELET AB Positive (Negative)
[2017-04-15 12:58] VITALS: O2SAT 95
== END 2017-04-11 20:26 | disposition short-term general hospital (02) | DRG 132 ==
LOC: C.ER 10:05 → C.5T 14:21 → C.9I 04-10 20:26
PROVIDERS: ADMIT Internal Medicine Pulmonary Disease; ATTEND Internal Medicine Pulmonary Disease
PROC: B246ZZZ Ultrasonography of Right and Left Heart (ICD-10-PCS; principal; 2017-04-09)
PROC: 5A1D60Z (ICD-10-PCS; 2017-04-10)
PROC: 30233N1 Transfusion of Nonautologous Red Blood Cells into Peripheral Vein, Percutaneous Approach (ICD-10-PCS; 2017-04-10)
DX: I51.3 Intracardiac thrombosis, not elsewhere classified (principal); I13.2 Hypertensive heart and chronic kidney disease with heart failure and with stage 5 chronic kidney disease, or end stage renal disease; E11.22 Type 2 diabetes mellitus with diabetic chronic kidney disease; N18.6 End stage renal disease; E11.51 Type 2 diabetes mellitus with diabetic peripheral angiopathy without gangrene; I27.2 Other secondary pulmonary hypertension; I07.9 Rheumatic tricuspid valve disease, unspecified; E87.5 Hyperkalemia; I48.92 Unspecified atrial flutter; I50.9 Heart failure, unspecified; J44.9 Chronic obstructive pulmonary disease, unspecified; T82.868S Thrombosis due to vascular prosthetic devices, implants and grafts, sequela; D64.9 Anemia, unspecified; E11.65 Type 2 diabetes mellitus with hyperglycemia; D72.829 Elevated white blood cell count, unspecified; E78.00 Pure hypercholesterolemia, unspecified; F02.80 Dementia in other diseases classified elsewhere, unspecified severity, without behavioral disturbance, psychotic disturbance, mood disturbance, and anxiety; G30.9 Alzheimer's disease, unspecified; H54.8 Legal blindness, as defined in USA; I25.10 Atherosclerotic heart disease of native coronary artery without angina pectoris; I48.91 Unspecified atrial fibrillation; E03.9 Hypothyroidism, unspecified; E78.5 Hyperlipidemia, unspecified; K21.9 Gastro-esophageal reflux disease without esophagitis; Z79.4 Long term (current) use of insulin; Z79.82 Long term (current) use of aspirin; Z86.73 Personal history of transient ischemic attack (TIA), and cerebral infarction without residual deficits; Z87.01 Personal history of pneumonia (recurrent); I25.2 Old myocardial infarction; Z87.11 Personal history of peptic ulcer disease; Z89.511 Acquired absence of right leg below knee; Z89.512 Acquired absence of left leg below knee; Z90.49 Acquired absence of other specified parts of digestive tract; Z91.11 Patient's noncompliance with dietary regimen; Z95.1 Presence of aortocoronary bypass graft; Z95.5 Presence of coronary angioplasty implant and graft; Z99.2 Dependence on renal dialysis

== ENCOUNTER 2017-04-26 17:46 | Inpatient (IN) | payer OTHER ==
[2017-04-26 18:19] VITALS: BMI 33.3
[2017-04-26] MEDS ORDERED: HYDROmorphone 1 mg/ml ISec IVP PRN (19:27)
[2017-04-26] MEDS: Piperacillin/Tazobact 3.375 GM in Sodium Chloride 100 ML IVPB SCH (22:54)
[2017-04-26] MEDS: Insulin Detemir 100 units/ml Vial (Levemir) SC SCH (22:55)
[2017-04-26] MEDS: (Novolog) Insulin Aspart, Recombinant 100 u/ml 10 ml vial SC SCH (22:56)
[2017-04-27] MEDS: Valproate 250 MG in Sodium Chloride 0.9% 100 ML IVPB SCH ×4 (00:34→17:41)
[2017-04-27] MEDS: Albuterol-Ipratrop 3 mg / 0.5 (3 ml) UD INH SCH ×4 (02:29→19:35)
[2017-04-27] MEDS: guaiFENesin DM 200 mg-20 mg/10 ml UD PO PRN ×2 (04:50→18:20)
[2017-04-27] MEDS: (Novolog) Insulin Aspart, Recombinant 100 u/ml 10 ml vial SC SCH ×4 (08:29→21:54)
[2017-04-27] MEDS: Multivitamin Vitamin B Complex (Nephro-Vite) Tab PO SCH (08:29)
[2017-04-27] MEDS: Pantoprazole 40 mg EC Tab PO SCH (09:19)
[2017-04-27] MEDS: Piperacillin/Tazobact 3.375 GM in Sodium Chloride 100 ML IVPB SCH ×2 (09:22→21:49)
[2017-04-27 13:44] LABS: BASO # 0.1 K/uL (0.0-0.2); BASO % 0.3 % (0.0-2.0); EOS # 0.1 K/uL (0.0-0.7); EOS % 0.9 % (0.0-4.0); HEMATOCRIT 24.6 % (35.0-51.0); LYMPH # 1.7 K/uL (1.0-4.3); LYMPH % 10.7 % (20.0-40.0); MEAN CELL VOLUME 91.7 fL (80.0-94.0); MEAN CORPUSCULAR HEMOGLOBIN 29.2 pg (27.0-31.0); MEAN CORPUSCULAR HGB CONC 31.8 g/dL (33.0-37.0); MEAN PLATELET VOLUME 9.7 fL (7.2-11.7); MONO # 1.2 K/uL (0.0-0.8); MONO % 7.3 % (0.0-10.0); RED CELL DISTRIBUTION WIDTH 17.6 % (11.5-14.5); WHITE BLOOD COUNT 15.9 K/uL (4.8-10.8)
[2017-04-27 13:46] LABS: POTASSIUM 3.9 mmol/L (3.6-5.2)
[2017-04-27 13:48] LABS: ALB/GLOB RATIO 0.7 (1.0-2.1); BILIRUBIN,TOTAL 0.6 mg/dL (0.2-1.3)
[2017-04-27 13:49] LABS: CALCIUM 8.3 mg/dl (8.6-10.4); PHOSPHOROUS 3.2 mg/dL (2.5-4.5)
--- NOTE | 2017-04-27 15:19 | CP.PCM.CON ---
History of Present Illness - History of Present Illness History of Present Illness: 36 yo w/ pmh of CAD, ESRD, HTN, endocarditis that was sent back from [facility]. He apparently was sent for consideration of intracardiac clot removal but it was decided that he was high risk and aborted. His stay was complicated by a severe hypoglycemic episode that required intubation. He was getting HD there TTS and apparently had to get some transfusions as well. He has no complaints. He was seen on HD. A full detailed ROS is negative except as in my hpi. sochx: denies active etoh/ivdu smoking famhx: no esrd Past Patient History - Infectious Disease Hx of Infectious Diseases: None - Tetanus Immunizations Tetanus Immunization: >10 years Ago - Past Medical History & Family History Past Medical History?: Yes - Past Social History Smoking Status: Never Smoked - CARDIAC Hx Atrial Fibrillation: Yes Hx Cardia Arrhythmia: Yes Hx Congestive Heart Failure: Yes Hx Hypercholesterolemia: Yes Hx Hypertension: Yes - PULMONARY Hx Asthma: Yes Hx Bronchitis: Yes Hx Chronic Obstructive Pulmonary Disease (COPD): Yes Hx Pneumonia: Yes - NEUROLOGICAL Hx Alzheimer's Disease: Yes Hx Seizures: Yes - HEENT Hx HEENT Problems: Yes Hx Blind: Yes (legally blind) Hx Cataracts: Yes - RENAL Hx Chronic Kidney Disease: Yes Hx Dialysis: Yes Hx Renal Failure: Yes - ENDOCRINE/METABOLIC Hx Diabetes Mellitus Type 2: Yes Hx Hypothyroidism: Yes - HEMATOLOGICAL/ONCOLOGICAL Hx Anemia: Yes - INTEGUMENTARY Hx Dermatological Problems: No - MUSCULOSKELETAL/RHEUMATOLOGICAL Hx Falls: No - GASTROINTESTINAL Hx Gall Bladder Disease: Yes Hx Gastritis: Yes - GENITOURINARY/GYNECOLOGICAL Hx Genitourinary Disorders: No Hx Sexually Transmitted Disorders: No - PSYCHIATRIC Hx Substance Use: No - SURGICAL HISTORY Hx Amputation: Yes (bilateral BKA) Hx Cholecystectomy: Yes (2011) 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/2009) Hx Coronary Stent: Yes - ANESTHESIA Hx Anesthesia: Yes Hx Anesthesia Reactions: No Hx Malignant Hyperthermia: No Meds Allergies/Adverse Reactions: Allergies Allergy/AdvReac Type Severity Reaction Status Date / Time acetaminophen [From Percocet] Allergy RASH Verified 04/09/17 10:25 atenolol Allergy RASH Verified 04/09/17 10:25 digoxin Allergy RASH Verified 04/09/17 10:25 milk Allergy ITCHING Verified 04/09/17 10:25 morphine Allergy RASH Verified 08/08/17 10:28 oxycodone HCl [From Percocet] Allergy RASH Verified 04/09/17 10:25 - Medications Medications: Current Medications Albuterol/Ipratropium (Duoneb 3 Mg/0.5 Mg (3 Ml) Ud) 3 ml INH RQ6 [facility] Last Admin: 04/27/17 13:20 Dose: Not Given Amlodipine Besylate (Norvasc) 10 mg PO DAILY [facility] Last Admin: 04/27/17 09:24 Dose: Not Given Aspirin (Aspirin Chewable) 81 mg PO DAILY [facility] Last Admin: 04/27/17 09:19 Dose: 81 mg Carvedilol (Coreg) 6.25 mg PO Q12 [facility] Last Admin: 04/27/17 09:23 Dose: Not Given Cyanocobalamin (Vitamin B12 1000 Mcg/Ml Inj) 1,000 mcg IM DAILY [facility] Last Admin: 04/27/17 09:19 Dose: 1,000 mcg Diphenhydramine HCl (Benadryl) 25 mg PO Q8 PRN PRN Reason: Itching / Pruritus Epoetin Tom (Procrit) 10,000 unit IV TTS [facility] Fentanyl (Duragesic) 1 patch TD Q72H [facility] Last Admin: 04/27/17 09:19 Dose: 1 patch Guaifenesin/Dextromethorphan (Robitussin Dm) 10 ml PO Q4H PRN PRN Reason: Cough and congestion Last Admin: 04/27/17 04:50 Dose: 10 ml Heparin Sodium (Porcine) (Heparin) 5,000 units SC Q8 [facility] Last Admin: 04/27/17 14:11 Dose: Not Given Heparin Sodium (Porcine) (Heparin) 4,700 units IVP TTS [facility] Hydromorphone HCl (Dilaudid) 1 mg IVP Q4H PRN PRN Reason: Pain, severe (8-10) Levetiracetam 250 mg/ Sodium (Chloride) 102.5 mls @ 420 mls/hr IVPB Q12H [facility] Last Admin: 04/27/17 04:50 Dose: 420 mls/hr Piperacillin Sod/Tazobactam (Sod 3.375 gm/ Sodium Chloride) 100 mls @ 200 mls/ hr IVPB Q12H [facility] Last Admin: 04/27/17 09:22 Dose: 200 mls/hr Valproate Sodium 250 mg/ (Sodium Chloride) 102.5 mls @ 100 mls/hr IVPB Q6 [facility] Last Admin: 04/27/17 12:22 Dose: 100 mls/hr Vancomycin HCl 500 mg/ Sodium (Chloride) 100 mls @ 100 mls/hr IVPB TTS [facility] Last Admin: 04/27/17 10:53 Dose: 100 mls/hr Insulin Aspart (Novolog) 0 unit SC ACHS [facility] PRN Reason: Protocol Last Admin: 04/27/17 12:21 Dose: 2 unit Insulin Detemir (Levemir) 8 unit SC [facility] Last Admin: 04/26/17 22:55 Dose: Not Given Isosorbide Mononitrate (Imdur) 60 mg PO DAILY [facility] Last Admin: 04/27/17 09:23 Dose: Not Given Pantoprazole Sodium (Protonix Ec Tab) 40 mg PO DAILY [facility] Last Admin: 04/27/17 09:19 Dose: 40 mg Rosuvastatin Calcium (Crestor) 10 mg PO [facility] Last Admin: 04/26/17 22:55 Dose: Not Given Tramadol HCl (Ultram) 50 mg PO Q6H PRN PRN Reason: Pain, moderate (4-7) Last Admin: 04/27/17 05:55 Dose: 50 mg Vitamin B Complex/Vit C/Folic Acid (Nephro-Courtney) 1 tab PO 0800 [facility] Last Admin: 04/27/17 08:29 Dose: 1 tab Physical Exam - Constitutional Appears: Non-toxic - Head Exam Head Exam: ATRAUMATIC - Eye Exam Eye Exam: Normal appearance - ENT Exam ENT Exam: Normal Exam - Neck Exam Neck exam: Positive for: Normal Inspection - Respiratory Exam Respiratory Exam: NORMAL BREATHING PATTERN - Cardiovascular Exam Cardiovascular Exam: +S1, +S2 - GI/Abdominal Exam GI & Abdominal Exam: Normal Bowel Sounds - Extremities Exam Additional comments: no edema - Neurological Exam Additional comments: following commands - Psychiatric Exam Psychiatric exam: Normal Affect - Skin Skin Exam: Normal Color Results - Vital Signs Recent Vital Signs: Last Vital Signs Temp 98.1 F 04/27/17 13:30 Pulse 82 04/27/17 13:30 Resp 24 04/27/17 13:30 BP 123/79 04/27/17 14:20 Pulse Ox 98 04/27/17 13:30 - Labs Result Diagrams: 04/27/17 13:30 04/27/17 13:30 Labs: Laboratory Results - last 24 hr 04/26/17 04/26/17 04/27/17 17:52 21:16 01:59 WBC RBC Hgb Hct MCV MCH MCHC RDW Plt Count MPV Neut % (Auto) Lymph % (Auto) [place] % (Auto) Eos % (Auto) Baso % (Auto) Neut # Lymph # [place] # Eos # Baso # Sodium Potassium Chloride Carbon Dioxide Anion Gap BUN Creatinine Est GFR ( Amer) Est GFR (Non-Af Amer) POC Glucose (mg/dL) 144 H 140 H 190 H Random Glucose Calcium Phosphorus Total Bilirubin AST ALT Alkaline Phosphatase Total Protein Albumin Globulin Albumin/Globulin Ratio 04/27/17 04/27/17 04/27/17 06:14 11:24 13:30 WBC 15.9 H RBC 2.69 L Hgb 7.8 L Hct 24.6 L MCV 91.7 MCH 29.2 MCHC 31.8 L RDW 17.6 H Plt Count 235 D MPV 9.7 Neut % (Auto) 80.8 H Lymph % (Auto) 10.[address] [place] % (Auto) 7.3 Eos % (Auto) 0.9 Baso % (Auto) 0.3 Neut # 12.8 H Lymph # 1.7 [place] # 1.2 H Eos # 0.1 Baso # 0.1 Sodium Potassium Chloride Carbon Dioxide Anion Gap BUN Creatinine Est GFR ( Amer) Est GFR (Non-Af Amer) POC Glucose (mg/dL) 224 H 218 H Random Glucose Calcium Phosphorus Total Bilirubin AST ALT Alkaline Phosphatase Total Protein Albumin Globulin Albumin/Globulin Ratio 04/27/17 13:30 WBC RBC Hgb Hct MCV MCH MCHC RDW Plt Count MPV Neut % (Auto) Lymph % (Auto) [place] % (Auto) Eos % (Auto) Baso % (Auto) Neut # Lymph # [place] # Eos # Baso # Sodium 138 Potassium 3.9 Chloride 95 L Carbon Dioxide 24 Anion Gap 23 H BUN 44 H Creatinine 3.7 H Est GFR ( Amer) 23 Est GFR (Non-Af Amer) 19 POC Glucose (mg/dL) Random Glucose 164 H Calcium 8.3 L Phosphorus 3.2 Total Bilirubin 0.6 AST 16 L D ALT 14 L D Alkaline Phosphatase 115 Total Protein 6.0 L Albumin 2.5 L Globulin 3.5 Albumin/Globulin Ratio 0.7 L Assessment & Plan - Assessment and Plan (Free Text) Assessment: ESRD / Secondary hyperparathyroid/ Endocarditis/ Anemia / HTN plan: Seen on HD continue TTS abx per primary procrit restarted monitor may need transfusion bp stable phos within goal
[2017-04-27] MEDS: Epoetin Alfa 10,000 unit/ml Dialysis IV SCH (15:43)
--- NOTE | 2017-04-27 15:58 | CP.PCM.HP ---
History of Present Illness - History of Present Illness History of Present Illness: pt transfered back from another facility after he suppose to have cardiac surgery for clott in his ht but it was not recomended pt was also entubated for episode of hypoglyceamia now he is on iv antibiotuscs for possile sepses Present on Admission - Present on Admission Any Indicators Present on Admission: Yes Review of Systems - Review of Systems Systems not reviewed;Unavailable: Acuity of Condition - Constitutional Constitutional: Daytime Sleepiness, Fatigue, Fever, Lethargy - EENT Eyes: Blind Spots Ears: As Per HPI Nose/Mouth/Throat: As Per HPI - Cardiovascular Cardiovascular: Chest Pain, Dyspnea on Exertion - Respiratory Respiratory: Dyspnea, Dyspnea on Exertion - Gastrointestinal Gastrointestinal: Bloating - Reproductive: 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 - Musculoskeletal Additional comments: s/p javier amputation - Neurological Neurological: Sensory Deficit - Psychiatric Psychiatric: Depression - Endocrine Endocrine: Cold Intolorance - Hematologic/Lymphatic Hematologic: As Per HPI Past Patient History - Infectious Disease Hx of Infectious Diseases: None - Tetanus Immunizations Tetanus Immunization: >10 years Ago - Past Medical History & Family History Past Medical History?: Yes - Past Social History Smoking Status: Never Smoked - CARDIAC Hx Atrial Fibrillation: Yes Hx Cardia Arrhythmia: Yes Hx Congestive Heart Failure: Yes Hx Hypercholesterolemia: Yes Hx Hypertension: Yes - PULMONARY Hx Asthma: Yes Hx Bronchitis: Yes Hx Chronic Obstructive Pulmonary Disease (COPD): Yes Hx Pneumonia: Yes - NEUROLOGICAL Hx Alzheimer's Disease: Yes Hx Seizures: Yes - HEENT Hx HEENT Problems: Yes Hx Blind: Yes (legally blind) Hx Cataracts: Yes - RENAL Hx Chronic Kidney Disease: Yes Hx Dialysis: Yes Hx Renal Failure: Yes - ENDOCRINE/METABOLIC Hx Diabetes Mellitus Type 2: Yes Hx Hypothyroidism: Yes - HEMATOLOGICAL/ONCOLOGICAL Hx Anemia: Yes - INTEGUMENTARY Hx Dermatological Problems: No - MUSCULOSKELETAL/RHEUMATOLOGICAL Hx Falls: No - GASTROINTESTINAL Hx Gall Bladder Disease: Yes Hx Gastritis: Yes - GENITOURINARY/GYNECOLOGICAL Hx Genitourinary Disorders: No Hx Sexually Transmitted Disorders: No - PSYCHIATRIC Hx Substance Use: No - SURGICAL HISTORY Hx Amputation: Yes (bilateral BKA) Hx Cholecystectomy: Yes (2011) 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/2009) Hx Coronary Stent: Yes - ANESTHESIA Hx Anesthesia: Yes Hx Anesthesia Reactions: No Hx Malignant Hyperthermia: No Meds Allergies/Adverse Reactions: Allergies Allergy/AdvReac Type Severity Reaction Status Date / Time acetaminophen [From Percocet] Allergy RASH Verified 04/09/17 10:25 atenolol Allergy RASH Verified 04/09/17 10:25 digoxin Allergy RASH Verified 04/09/17 10:25 milk Allergy ITCHING Verified 04/09/17 10:25 morphine Allergy RASH Verified 04/09/17 10:28 oxycodone HCl [From Percocet] Allergy RASH Verified 04/09/17 10:25 Physical Exam - Constitutional Appears: Non-toxic - Head Exam Head Exam: ATRAUMATIC - Eye Exam Eye Exam: Conjunctival injection Additional comments: legaly blind - ENT Exam ENT Exam: Normal Exam - Neck Exam Neck exam: Positive for: Full Rom - Respiratory Exam Respiratory Exam: Decreased Breath Sounds - Cardiovascular Exam Cardiovascular Exam: REGULAR RHYTHM - GI/Abdominal Exam GI & Abdominal Exam: Normal Bowel Sounds - Rectal Exam Rectal Exam: NORMAL INSPECTION - Extremities Exam Additional comments: s/p bilateral amputation - Back Exam Back exam: CVA tenderness (L) - Neurological Exam Neurological exam: Oriented x3 - Psychiatric Exam Psychiatric exam: Depressed - Skin Skin Exam: Pallor Results - Vital Signs Recent Vital Signs: Last Vital Signs Temp 98.1 F 04/27/17 13:30 Pulse 82 04/27/17 13:30 Resp 24 04/27/17 13:30 BP 123/79 04/27/17 14:20 Pulse Ox 98 04/27/17 13:30 - Labs Result Diagrams: 04/27/17 13:30 04/27/17 13:30 Labs: Laboratory Results - last 24 hr 04/26/17 04/26/17 04/27/17 17:52 21:16 01:59 WBC RBC Hgb Hct MCV MCH MCHC RDW Plt Count MPV Neut % (Auto) Lymph % (Auto) [place] % (Auto) Eos % (Auto) Baso % (Auto) Neut # Lymph # [place] # Eos # Baso # Sodium Potassium Chloride Carbon Dioxide Anion Gap BUN Creatinine Est GFR ( Amer) Est GFR (Non-Af Amer) POC Glucose (mg/dL) 144 H 140 H 190 H Random Glucose Calcium Phosphorus Total Bilirubin AST ALT Alkaline Phosphatase Total Protein Albumin Globulin Albumin/Globulin Ratio 04/27/17 04/27/17 04/27/17 06:14 11:24 13:30 WBC 15.9 H RBC 2.69 L Hgb 7.8 L Hct 24.6 L MCV 91.7 MCH 29.2 MCHC 31.8 L RDW 17.6 H Plt Count 235 D MPV 9.7 Neut % (Auto) 80.8 H Lymph % (Auto) 10.7 L [place] % (Auto) 7.3 Eos % (Auto) 0.9 Baso % (Auto) 0.3 Neut # 12.8 H Lymph # 1.7 [place] # 1.2 H Eos # 0.1 Baso # 0.1 Sodium Potassium Chloride Carbon Dioxide Anion Gap BUN Creatinine Est GFR ( Amer) Est GFR (Non-Af Amer) POC Glucose (mg/dL) 224 H 218 H Random Glucose Calcium Phosphorus Total Bilirubin AST ALT Alkaline Phosphatase Total Protein Albumin Globulin Albumin/Globulin Ratio 04/27/17 13:30 WBC RBC Hgb Hct MCV MCH MCHC RDW Plt Count MPV Neut % (Auto) Lymph % (Auto) [place] % (Auto) Eos % (Auto) Baso % (Auto) Neut # Lymph # [place] # Eos # Baso # Sodium 138 Potassium 3.9 Chloride 95 L Carbon Dioxide 24 Anion Gap 23 H BUN 44 H Creatinine 3.7 H Est GFR ( Amer) 23 Est GFR (Non-Af Amer) 19 POC Glucose (mg/dL) Random Glucose 164 H Calcium 8.3 L Phosphorus 3.2 Total Bilirubin 0.6 AST 16 L D ALT 14 L D Alkaline Phosphatase 115 Total Protein 6.0 L Albumin 2.5 L Globulin 3.5 Albumin/Globulin Ratio 0.7 L Assessment & Plan - Assessment and Plan (Free Text) Assessment: cad endocarditis dmid copd esrf aneamia Plan: as per orders - Date & Time Date: 04/27/17 Time: 16:05
--- NOTE | 2017-04-27 17:38 | CP.PCM.CON ---
Past Patient History - Infectious Disease Hx of Infectious Diseases: None - Tetanus Immunizations Tetanus Immunization: >10 years Ago - Past Medical History & Family History Past Medical History?: Yes - Past Social History Smoking Status: Never Smoked - CARDIAC Hx Atrial Fibrillation: Yes Hx Cardia Arrhythmia: Yes Hx Congestive Heart Failure: Yes Hx Hypercholesterolemia: Yes Hx Hypertension: Yes - PULMONARY Hx Asthma: Yes Hx Bronchitis: Yes Hx Chronic Obstructive Pulmonary Disease (COPD): Yes Hx Pneumonia: Yes - NEUROLOGICAL Hx Alzheimer's Disease: Yes Hx Seizures: Yes - HEENT Hx HEENT Problems: Yes Hx Blind: Yes (legally blind) Hx Cataracts: Yes - RENAL Hx Chronic Kidney Disease: Yes Hx Dialysis: Yes Hx Renal Failure: Yes - ENDOCRINE/METABOLIC Hx Diabetes Mellitus Type 2: Yes Hx Hypothyroidism: Yes - HEMATOLOGICAL/ONCOLOGICAL Hx Anemia: Yes - INTEGUMENTARY Hx Dermatological Problems: No - MUSCULOSKELETAL/RHEUMATOLOGICAL Hx Falls: No - GASTROINTESTINAL Hx Gall Bladder Disease: Yes Hx Gastritis: Yes - GENITOURINARY/GYNECOLOGICAL Hx Genitourinary Disorders: No Hx Sexually Transmitted Disorders: No - PSYCHIATRIC Hx Substance Use: No - SURGICAL HISTORY Hx Amputation: Yes (bilateral BKA) Hx Cholecystectomy: Yes (2011) 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/2009) Hx Coronary Stent: Yes - ANESTHESIA Hx Anesthesia: Yes Hx Anesthesia Reactions: No Hx Malignant Hyperthermia: No Meds Allergies/Adverse Reactions: Allergies Allergy/AdvReac Type Severity Reaction Status Date / Time acetaminophen [From Percocet] Allergy RASH Verified 04/09/17 10:25 atenolol Allergy RASH Verified 04/09/17 10:25 digoxin Allergy RASH Verified 04/09/17 10:25 milk Allergy ITCHING Verified 04/09/17 10:25 morphine Allergy RASH Verified 04/09/17 10:28 oxycodone HCl [From Percocet] Allergy RASH Verified 04/09/17 10:25 - Medications Medications: Current Medications Albuterol/Ipratropium (Duoneb 3 Mg/0.5 Mg (3 Ml) Ud) 3 ml INH RQ6 [facility] Last Admin: 04/27/17 13:20 Dose: Not Given Amlodipine Besylate (Norvasc) 10 mg PO DAILY [facility] Last Admin: 04/27/17 09:24 Dose: Not Given Aspirin (Aspirin Chewable) 81 mg PO DAILY [facility] Last Admin: 04/27/17 09:19 Dose: 81 mg Carvedilol (Coreg) 6.25 mg PO Q12 [facility] Last Admin: 04/27/17 09:23 Dose: Not Given Cyanocobalamin (Vitamin B12 1000 Mcg/Ml Inj) 1,000 mcg IM DAILY [facility] Last Admin: 04/27/17 09:19 Dose: 1,000 mcg Diphenhydramine HCl (Benadryl) 25 mg PO Q8 PRN PRN Reason: Itching / Pruritus Epoetin Tom (Procrit) 10,000 unit IV TTS [facility] Last Admin: 04/27/17 15:43 Dose: 10,000 unit Fentanyl (Duragesic) 1 patch TD Q72H [facility] Last Admin: 04/27/17 09:19 Dose: 1 patch Guaifenesin/Dextromethorphan (Robitussin Dm) 10 ml PO Q4H PRN PRN Reason: Cough and congestion Last Admin: 04/27/17 04:50 Dose: 10 ml Heparin Sodium (Porcine) (Heparin) 5,000 units SC Q8 [facility] Last Admin: 04/27/17 14:11 Dose: Not Given Heparin Sodium (Porcine) (Heparin) 4,700 units IVP TTS [facility] Last Admin: 04/27/17 15:45 Dose: 4,700 units Hydromorphone HCl (Dilaudid) 0.5 mg IVP Q6H PRN PRN Reason: Pain, moderate (4-7) Levetiracetam 250 mg/ Sodium (Chloride) 102.5 mls @ 420 mls/hr IVPB Q12H [facility] Last Admin: 04/27/17 04:50 Dose: 420 mls/hr Piperacillin Sod/Tazobactam (Sod 3.375 gm/ Sodium Chloride) 100 mls @ 200 mls/ hr IVPB Q12H [facility] Last Admin: 04/27/17 09:22 Dose: 200 mls/hr Valproate Sodium 250 mg/ (Sodium Chloride) 102.5 mls @ 100 mls/hr IVPB Q6 [facility] Last Admin: 04/27/17 12:22 Dose: 100 mls/hr Vancomycin HCl 500 mg/ Sodium (Chloride) 100 mls @ 100 mls/hr IVPB TTS [facility] Last Admin: 04/27/17 10:53 Dose: 100 mls/hr Insulin Aspart (Novolog) 0 unit SC ACHS [facility] PRN Reason: Protocol Last Admin: 04/27/17 17:29 Dose: Not Given Insulin Detemir (Levemir) 8 unit SC [facility] Last Admin: 04/26/17 22:55 Dose: Not Given Isosorbide Mononitrate (Imdur) 60 mg PO DAILY [facility] Last Admin: 04/27/17 09:23 Dose: Not Given Pantoprazole Sodium (Protonix Ec Tab) 40 mg PO DAILY [facility] Last Admin: 04/27/17 09:19 Dose: 40 mg Rosuvastatin Calcium (Crestor) 10 mg PO [facility] Last Admin: 04/26/17 22:55 Dose: Not Given Vitamin B Complex/Vit C/Folic Acid (Nephro-Courtney) 1 tab PO 0800 [facility] Last Admin: 04/27/17 08:29 Dose: 1 tab Results - Vital Signs Recent Vital Signs: Last Vital Signs Temp 98.1 F 04/27/17 17:32 Pulse 94 H 04/27/17 17:32 Resp 20 04/27/17 17:32 BP 144/70 04/27/17 17:32 Pulse Ox 97 04/27/17 17:32 - Labs Result Diagrams: 04/27/17 13:30 04/27/17 13:30 Labs: Laboratory Results - last 24 hr 04/26/17 04/26/17 04/27/17 17:52 21:16 01:59 WBC RBC Hgb Hct MCV MCH MCHC RDW Plt Count MPV Neut % (Auto) Lymph % (Auto) [place] % (Auto) Eos % (Auto) Baso % (Auto) Neut # Lymph # [place] # Eos # Baso # Sodium Potassium Chloride Carbon Dioxide Anion Gap BUN Creatinine Est GFR ( Amer) Est GFR (Non-Af Amer) POC Glucose (mg/dL) 144 H 140 H 190 H Random Glucose Calcium Phosphorus Total Bilirubin AST ALT Alkaline Phosphatase Total Protein Albumin Globulin Albumin/Globulin Ratio 04/27/17 04/27/17 04/27/17 06:14 11:24 13:30 WBC 15.9 H RBC 2.69 L Hgb 7.8 L Hct 24.6 L MCV 91.7 MCH 29.2 MCHC 31.8 L RDW 17.6 H Plt Count 235 D MPV 9.7 Neut % (Auto) 80.8 H Lymph % (Auto) 10.7 L [place] % (Auto) 7.3 Eos % (Auto) 0.9 Baso % (Auto) 0.3 Neut # 12.8 H Lymph # 1.7 [place] # 1.2 H Eos # 0.1 Baso # 0.1 Sodium Potassium Chloride Carbon Dioxide Anion Gap BUN Creatinine Est GFR ( Amer) Est GFR (Non-Af Amer) POC Glucose (mg/dL) 224 H 218 H Random Glucose Calcium Phosphorus Total Bilirubin AST ALT Alkaline Phosphatase Total Protein Albumin Globulin Albumin/Globulin Ratio 04/27/17 04/27/17 13:30 16:47 WBC RBC Hgb Hct MCV MCH MCHC RDW Plt Count MPV Neut % (Auto) Lymph % (Auto) [place] % (Auto) Eos % (Auto) Baso % (Auto) Neut # Lymph # [place] # Eos # Baso # Sodium 138 Potassium 3.9 Chloride 95 L Carbon Dioxide 24 Anion Gap 23 H BUN 44 H Creatinine 3.7 H Est GFR ( Amer) 23 Est GFR (Non-Af Amer) 19 POC Glucose (mg/dL) 136 H Random Glucose 164 H Calcium 8.3 L Phosphorus 3.2 Total Bilirubin 0.6 AST 16 L D ALT 14 L D Alkaline Phosphatase 115 Total Protein 6.0 L Albumin 2.5 L Globulin 3.5 Albumin/Globulin Ratio 0.7 L Assessment & Plan - Assessment and Plan (Free Text) Assessment: 36 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 Continue anticoagulation ESRD on HD Severe PVD s/p bilateral BKA DM brittle on insuilin CAD s/p CABG and multiple PCI now non revascularizable; continue anti anginal therapy Paroxysmal atrial fibrillation now in NSR, anticoagulate GI bleed this has limited anticoagulation in the past continue to monitor
--- NOTE | 2017-04-27 19:35 | CARD ---
APPROVED REPORT EXAM: Two-dimensional and M-mode echocardiogram with Doppler and color Doppler. Other Information Quality : GoodRhythm : NSR INDICATION Cardiac Disease: CAD Chest Pain Congestive Heart Failure ENDOCARDITIS RISK FACTORS Hypertension Hyperlipidemia Diabetes Aortic Valve AoV Peak Aswbsgbz810.4cm/Kely Peak GR.15mmHg Mitral Valve MV E Rjvhowng739.8cm/sMV A Jluhjdqv59.6cm/sE/A ratio1.4 TDI E/Lateral E'0.0E/Medial E'0.0 Tricuspid Valve TR Peak [id number]/sTR Peak Gr.[id number] LEFT VENTRICLE There is moderate concentric left ventricular hypertrophy. Left ventricle systolic function is normal. The Ejection Fraction is >70%. There is normal LV segmental wall motion. Tissue Doppler imaging reveals abnormal left ventricular diastolic dysfunction. Transmitral Doppler flow pattern is Grade I-abnormal relaxation pattern. RIGHT VENTRICLE The right ventricle is normal size. The right ventricular systolic function is normal. ATRIA The left atrium size is normal. The right atrium size is normal. The interatrial septum is intact with no evidence for an atrial septal defect. AORTIC VALVE The aortic valve is normal in structure. No aortic regurgitation is present. There is no aortic valvular stenosis. There is no aortic valvular vegetation. MITRAL VALVE The mitral valve leaflets are thickened. There is no mitral valve stenosis. Mitral regurgitation is mild. TRICUSPID VALVE The tricuspid valve is normal in structure. There is moderate tricuspid regurgitation. There is no tricuspid valve stenosis. PULMONIC VALVE There is no pulmonic valvular regurgitation. GREAT VESSELS The aortic root is normal in size. <Conclusion> Left ventricle systolic function is normal. The Ejection Fraction is >70%. The right ventricular systolic function is normal. The aortic valve is normal in structure. The mitral valve leaflets are thickened. Severe Pulmonary HTN (PASP >60mmHg) RA/RV mass seen in prior ECHOs no more seen
[2017-04-27] MEDS: Insulin Detemir 100 units/ml Vial (Levemir) SC SCH (22:17)
[2017-04-28] MEDS: Valproate 250 MG in Sodium Chloride 0.9% 100 ML IVPB SCH ×5 (00:31→23:55)
[2017-04-28] MEDS: (Novolog) Insulin Aspart, Recombinant 100 u/ml 10 ml vial SC SCH ×4 (07:40→22:11)
[2017-04-28] MEDS: Albuterol-Ipratrop 3 mg / 0.5 (3 ml) UD INH SCH (07:54)
[2017-04-28] MEDS: Multivitamin Vitamin B Complex (Nephro-Vite) Tab PO SCH (08:00)
[2017-04-28] MEDS: Piperacillin/Tazobact 3.375 GM in Sodium Chloride 100 ML IVPB SCH ×2 (10:00→22:10)
[2017-04-28] MEDS: Pantoprazole 40 mg EC Tab PO SCH (10:29)
[2017-04-28] MEDS: guaiFENesin DM 200 mg-20 mg/10 ml UD PO PRN ×2 (10:43→22:17)
--- NOTE | 2017-04-28 12:27 | CP.PCM.PN ---
Subjective - Date & Time of Evaluation Date of Evaluation: 04/28/17 Time of Evaluation: 12:24 - Subjective Subjective: pt dysarthria canot talk normal sob Objective - Vital Signs/Intake and Output Vital Signs (last 24 hours): Temp Pulse Resp BP Pulse Ox 98.4 F 92 H 18 128/77 96 04/28/17 07:45 04/28/17 07:45 04/28/17 07:45 04/28/17 07:45 04/28/17 07:45 - Medications Medications: Current Medications Albuterol/Ipratropium (Duoneb 3 Mg/0.5 Mg (3 Ml) Ud) 3 ml INH RQ6 [facility] Last Admin: 04/28/17 07:54 Dose: Not Given Amlodipine Besylate (Norvasc) 10 mg PO DAILY [facility] Last Admin: 04/28/17 10:29 Dose: 10 mg Aspirin (Aspirin Chewable) 81 mg PO DAILY [facility] Last Admin: 04/28/17 10:28 Dose: 81 mg Carvedilol (Coreg) 6.25 mg PO Q12 [facility] Last Admin: 04/28/17 10:28 Dose: 6.25 mg Cyanocobalamin (Vitamin B12 1000 Mcg/Ml Inj) 1,000 mcg IM DAILY [facility] Last Admin: 04/28/17 10:42 Dose: 1,000 mcg Diphenhydramine HCl (Benadryl) 25 mg PO Q8 PRN PRN Reason: Itching / Pruritus Epoetin Tom (Procrit) 10,000 unit IV TTS [facility] Last Admin: 04/27/17 15:43 Dose: 10,000 unit Fentanyl (Duragesic) 1 patch TD Q72H [facility] Last Admin: 04/27/17 09:19 Dose: 1 patch Guaifenesin/Dextromethorphan (Robitussin Dm) 10 ml PO Q4H PRN PRN Reason: Cough and congestion Last Admin: 04/28/17 10:43 Dose: 10 ml Heparin Sodium (Porcine) (Heparin) 5,000 units SC Q8 [facility] Last Admin: 04/28/17 06:59 Dose: 5,000 units Heparin Sodium (Porcine) (Heparin) 4,700 units IVP TTS [facility] Last Admin: 04/27/17 15:45 Dose: 4,700 units Hydromorphone HCl (Dilaudid) 0.5 mg IVP Q6H PRN PRN Reason: Pain, moderate (4-7) Levetiracetam 250 mg/ Sodium (Chloride) 102.5 mls @ 420 mls/hr IVPB Q12H [facility] Last Admin: 04/28/17 05:27 Dose: 420 mls/hr Piperacillin Sod/Tazobactam (Sod 3.375 gm/ Sodium Chloride) 100 mls @ 200 mls/ hr IVPB Q12H [facility] Last Admin: 04/28/17 10:00 Dose: 200 mls/hr Valproate Sodium 250 mg/ (Sodium Chloride) 102.5 mls @ 100 mls/hr IVPB Q6 [facility] Last Admin: 04/28/17 06:59 Dose: 100 mls/hr Vancomycin HCl 500 mg/ Sodium (Chloride) 100 mls @ 100 mls/hr IVPB TTS [facility] Last Admin: 04/27/17 10:53 Dose: 100 mls/hr Insulin Aspart (Novolog) 0 unit SC ACHS [facility] PRN Reason: Protocol Last Admin: 04/28/17 07:40 Dose: 1 unit Insulin Detemir (Levemir) 8 unit SC [facility] Last Admin: 04/27/17 22:17 Dose: 8 unit Isosorbide Mononitrate (Imdur) 60 mg PO DAILY [facility] Last Admin: 04/28/17 10:28 Dose: 60 mg Pantoprazole Sodium (Protonix Ec Tab) 40 mg PO DAILY [facility] Last Admin: 04/28/17 10:29 Dose: 40 mg Rosuvastatin Calcium (Crestor) 10 mg PO [facility] Last Admin: 04/27/17 21:48 Dose: 10 mg Vitamin B Complex/Vit C/Folic Acid (Nephro-Courtney) 1 tab PO 0800 [facility] Last Admin: 04/28/17 08:00 Dose: 1 tab - Labs Labs: 04/27/17 13:30 04/27/17 13:30 - Constitutional Appears: Non-toxic - Head Exam Head Exam: NORMAL INSPECTION - Eye Exam Eye Exam: Conjunctival injection - ENT Exam ENT Exam: Mucous Membranes Moist - Neck Exam Neck Exam: Full ROM - Respiratory Exam Respiratory Exam: Decreased Breath Sounds - Cardiovascular Exam Cardiovascular Exam: REGULAR RHYTHM - GI/Abdominal Exam GI & Abdominal Exam: Normal Bowel Sounds - Rectal Exam Rectal Exam: NORMAL INSPECTION - Back Exam Back Exam: CVA tenderness (L) - Neurological Exam Neurological Exam: Awake, Oriented x3 Additional comments: abnormal speech - Psychiatric Exam Psychiatric exam: Flat Affect - Skin Skin Exam: Pallor Assessment and Plan - Assessment and Plan (Free Text) Assessment: dysathria ams copd s/pCABGE AMPYTATION Plan: MRI NEURO CONS
--- NOTE | 2017-04-28 17:58 | CP.PCM.PN ---
Subjective - Date & Time of Evaluation Date of Evaluation: 04/28/17 Time of Evaluation: 17:57 - Subjective Subjective: Events reviewed. MRI pending Objective - Vital Signs/Intake and Output Vital Signs (last 24 hours): Temp Pulse Resp BP Pulse Ox 98.4 F 86 18 128/77 96 04/28/17 07:45 04/28/17 15:30 04/28/17 07:45 04/28/17 07:45 04/28/17 07:45 - Medications Medications: Current Medications Albuterol/Ipratropium (Duoneb 3 Mg/0.5 Mg (3 Ml) Ud) 3 ml INH RQ6 [facility] Last Admin: 04/28/17 07:54 Dose: Not Given Amlodipine Besylate (Norvasc) 10 mg PO DAILY [facility] Last Admin: 04/28/17 10:29 Dose: 10 mg Aspirin (Aspirin Chewable) 81 mg PO DAILY [facility] Last Admin: 04/28/17 10:28 Dose: 81 mg Carvedilol (Coreg) 6.25 mg PO Q12 [facility] Last Admin: 04/28/17 10:28 Dose: 6.25 mg Cyanocobalamin (Vitamin B12 1000 Mcg/Ml Inj) 1,000 mcg IM DAILY [facility] Last Admin: 04/28/17 10:42 Dose: 1,000 mcg Diphenhydramine HCl (Benadryl) 25 mg PO Q8 PRN PRN Reason: Itching / Pruritus Epoetin Tom (Procrit) 10,000 unit IV TTS [facility] Last Admin: 04/27/17 15:43 Dose: 10,000 unit Fentanyl (Duragesic) 1 patch TD Q72H [facility] Last Admin: 04/27/17 09:19 Dose: 1 patch Guaifenesin/Dextromethorphan (Robitussin Dm) 10 ml PO Q4H PRN PRN Reason: Cough and congestion Last Admin: 04/28/17 10:43 Dose: 10 ml Heparin Sodium (Porcine) (Heparin) 5,000 units SC Q8 [facility] Last Admin: 04/28/17 15:07 Dose: 5,000 units Heparin Sodium (Porcine) (Heparin) 4,700 units IVP TTS [facility] Last Admin: 04/27/17 15:45 Dose: 4,700 units Hydromorphone HCl (Dilaudid) 0.5 mg IVP Q6H PRN PRN Reason: Pain, moderate (4-7) Levetiracetam 250 mg/ Sodium (Chloride) 102.5 mls @ 420 mls/hr IVPB Q12H [facility] Last Admin: 04/28/17 16:12 Dose: 420 mls/hr Piperacillin Sod/Tazobactam (Sod 3.375 gm/ Sodium Chloride) 100 mls @ 200 mls/ hr IVPB Q12H [facility] Last Admin: 04/28/17 10:00 Dose: 200 mls/hr Valproate Sodium 250 mg/ (Sodium Chloride) 102.5 mls @ 100 mls/hr IVPB Q6 [facility] Last Admin: 04/28/17 12:00 Dose: 100 mls/hr Vancomycin HCl 500 mg/ Sodium (Chloride) 100 mls @ 100 mls/hr IVPB TTS [facility] Last Admin: 04/27/17 10:53 Dose: 100 mls/hr Insulin Aspart (Novolog) 0 unit SC ACHS [facility] PRN Reason: Protocol Last Admin: 04/28/17 12:39 Dose: 1 unit Insulin Detemir (Levemir) 8 unit SC [facility] Last Admin: 04/27/17 22:17 Dose: 8 unit Isosorbide Mononitrate (Imdur) 60 mg PO DAILY [facility] Last Admin: 04/28/17 10:28 Dose: 60 mg Pantoprazole Sodium (Protonix Ec Tab) 40 mg PO DAILY [facility] Last Admin: 04/28/17 10:29 Dose: 40 mg Rosuvastatin Calcium (Crestor) 10 mg PO HS [facility] Last Admin: 04/27/17 21:48 Dose: 10 mg Vitamin B Complex/Vit C/Folic Acid (Nephro-Courtney) 1 tab PO 0800 [facility] Last Admin: 04/28/17 08:00 Dose: 1 tab - Labs Labs: 04/27/17 13:30 04/27/17 13:30
[2017-04-28] MEDS: HYDROmorphone 0.5 mg/0.5 ml ISec IVP PRN (18:05)
[2017-04-28] MEDS: Insulin Detemir 100 units/ml Vial (Levemir) SC SCH (22:12)
--- NOTE | 2017-04-28 23:31 | CP.PCM.CON ---
History of Present Illness - History of Present Illness History of Present Illness: 36 yo w/ pmh of CAD, ESRD, HTN, endocarditis that was sent back from [facility]. He apparently was sent for consideration of intracardiac clot removal but it was decided that he was high risk to perform the Surgery of Intracardiac clot removal and the Cardiac surgery was cancelled. His stay at [facility] was complicated by a severe hypoglycemic episode that required intubation. Patient was also intubated for episode of hypoglycemia. Now he is on iv antibiotics for possible sepsis and was transferred back to [facility]. Patient has dysarthria and cannot talk He was getting HD there on T,T,S and apparently had to get some transfusions as well. He has no complaints. He was seen on H.D. Hx Blind: (legally blind) Hx Cataracts: Yes Past Patient History - Infectious Disease Hx of Infectious Diseases: None - Tetanus Immunizations Tetanus Immunization: >10 years Ago - Past Medical History & Family History Past Medical History?: Yes Hx Blind: Yes (legally blind) Hx Cataracts: Yes - Past Social History Smoking Status: Never Smoked - CARDIAC Hx Atrial Fibrillation: Yes Hx Cardia Arrhythmia: Yes Hx Congestive Heart Failure: Yes Hx Hypercholesterolemia: Yes Hx Hypertension: Yes - PULMONARY Hx Asthma: Yes Hx Bronchitis: Yes Hx Chronic Obstructive Pulmonary Disease (COPD): Yes Hx Pneumonia: Yes - NEUROLOGICAL Hx Alzheimer's Disease: Yes Hx Seizures: Yes sochx: denies active etoh/ivdu smoking famhx: no esrd - RENAL Hx Chronic Kidney Disease: Yes Hx Dialysis: Yes Hx Renal Failure: Yes - ENDOCRINE/METABOLIC Hx Diabetes Mellitus Type 2: Yes Hx Hypothyroidism: Yes - HEMATOLOGICAL/ONCOLOGICAL Hx Anemia: Yes - INTEGUMENTARY Hx Dermatological Problems: No - MUSCULOSKELETAL/RHEUMATOLOGICAL Hx Falls: No - GASTROINTESTINAL Hx Gall Bladder Disease: Yes Hx Gastritis: Yes - SURGICAL HISTORY Hx Amputation: Yes (bilateral BKA) Hx Cholecystectomy: Yes (2011) 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/2009) Hx Coronary Stent: Yes - ANESTHESIA Hx Anesthesia: Yes Hx Anesthesia Reactions: No Hx Malignant Hyperthermia: No Meds Allergies/Adverse Reactions: Allergies Allergy/AdvReac Type Severity Reaction Status Date / Time acetaminophen [From Percocet] Allergy RASH Verified 04/09/17 10:25 atenolol Allergy RASH Verified 04/09/17 10:25 digoxin Allergy RASH Verified 04/09/17 10:25 milk Allergy ITCHING Verified 04/09/17 10:25 morphine Allergy RASH Verified 04/09/17 10:28 oxycodone HCl [From Percocet] Allergy RASH Verified 04/09/17 10:25 Last Vital Signs Temp 98.1 F 04/27/17 13:30 Pulse 82 04/27/17 13:30 Resp 24 04/27/17 13:30 BP 123/79 04/27/17 14:20 Pulse Ox 98 04/27/17 13:30 Assessment & Plan - Assessment and Plan (Free Text) Assessment: ESRD / Secondary hyperparathyroid/ Endocarditis/ Anemia / HTN CAD Diabetes Mellitus Plan: 36 year old man with RV thrombus sent [facility] for thrombolysis but anticoagulation there was a substantial improvement in the mass. Continue anticoagulation ESRD on HD Severe PVD s/p bilateral BKA DM brittle on insuilin Seen on HD continue TTS Continue Antibiotics Procrit restarted, monitor Blood Hct and Hb as she may need transfusion B.P. stable Phosphates within goal Past Patient History - Infectious Disease Hx of Infectious Diseases: None - Tetanus Immunizations Tetanus Immunization: >10 years Ago - Past Medical History & Family History Past Medical History?: Yes - Past Social History Smoking Status: Never Smoked - CARDIAC Hx Atrial Fibrillation: Yes Hx Cardia Arrhythmia: Yes Hx Congestive Heart Failure: Yes Hx Hypercholesterolemia: Yes Hx Hypertension: Yes - PULMONARY Hx Asthma: Yes Hx Bronchitis: Yes Hx Chronic Obstructive Pulmonary Disease (COPD): Yes Hx Pneumonia: Yes - NEUROLOGICAL Hx Alzheimer's Disease: Yes Hx Seizures: Yes - HEENT Hx HEENT Problems: Yes Hx Blind: Yes (legally blind) Hx Cataracts: Yes - RENAL Hx Chronic Kidney Disease: Yes Hx Dialysis: Yes Hx Renal Failure: Yes - ENDOCRINE/METABOLIC Hx Diabetes Mellitus Type 2: Yes Hx Hypothyroidism: Yes - HEMATOLOGICAL/ONCOLOGICAL Hx Anemia: Yes - INTEGUMENTARY Hx Dermatological Problems: No - MUSCULOSKELETAL/RHEUMATOLOGICAL Hx Falls: No - GASTROINTESTINAL Hx Gall Bladder Disease: Yes Hx Gastritis: Yes - GENITOURINARY/GYNECOLOGICAL Hx Genitourinary Disorders: No Hx Sexually Transmitted Disorders: No - PSYCHIATRIC Hx Substance Use: No - SURGICAL HISTORY Hx Amputation: Yes (bilateral BKA) Hx Cholecystectomy: Yes (2011) 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/2009) Hx Coronary Stent: Yes - ANESTHESIA Hx Anesthesia: Yes Hx Anesthesia Reactions: No Hx Malignant Hyperthermia: No Meds Allergies/Adverse Reactions: Allergies Allergy/AdvReac Type Severity Reaction Status Date / Time acetaminophen [From Percocet] Allergy RASH Verified 04/09/17 10:25 atenolol Allergy RASH Verified 04/09/17 10:25 digoxin Allergy RASH Verified 04/09/17 10:25 milk Allergy ITCHING Verified 04/09/17 10:25 morphine Allergy RASH Verified 04/09/17 10:28 oxycodone HCl [From Percocet] Allergy RASH Verified 04/09/17 10:25 - Medications Medications: Current Medications Albuterol/Ipratropium (Duoneb 3 Mg/0.5 Mg (3 Ml) Ud) 3 ml INH RQ6 [facility] Last Admin: 04/28/17 07:54 Dose: Not Given Amlodipine Besylate (Norvasc) 10 mg PO DAILY [facility] Last Admin: 04/28/17 10:29 Dose: 10 mg Aspirin (Aspirin Chewable) 81 mg PO DAILY [facility] Last Admin: 04/28/17 10:28 Dose: 81 mg Carvedilol (Coreg) 6.25 mg PO Q12 [facility] Last Admin: 04/28/17 22:10 Dose: 6.25 mg Cyanocobalamin (Vitamin B12 1000 Mcg/Ml Inj) 1,000 mcg IM DAILY [facility] Last Admin: 04/28/17 10:42 Dose: 1,000 mcg Diphenhydramine HCl (Benadryl) 25 mg PO Q8 PRN PRN Reason: Itching / Pruritus Epoetin Tom (Procrit) 10,000 unit IV TTS [facility] Last Admin: 04/27/17 15:43 Dose: 10,000 unit Fentanyl (Duragesic) 1 patch TD Q72H [facility] Last Admin: 04/27/17 09:19 Dose: 1 patch Guaifenesin/Dextromethorphan (Robitussin Dm) 10 ml PO Q4H PRN PRN Reason: Cough and congestion Last Admin: 04/28/17 22:17 Dose: 10 ml Heparin Sodium (Porcine) (Heparin) 5,000 units SC Q8 [facility] Last Admin: 04/28/17 22:10 Dose: 5,000 units Heparin Sodium (Porcine) (Heparin) 4,700 units IVP TTS [facility] Last Admin: 04/27/17 15:45 Dose: 4,700 units Hydromorphone HCl (Dilaudid) 0.5 mg IVP Q6H PRN PRN Reason: Pain, moderate (4-7) Last Admin: 04/28/17 18:05 Dose: 0.5 mg Levetiracetam 250 mg/ Sodium (Chloride) 102.5 mls @ 420 mls/hr IVPB Q12H [facility] Last Admin: 04/28/17 16:12 Dose: 420 mls/hr Piperacillin Sod/Tazobactam (Sod 3.375 gm/ Sodium Chloride) 100 mls @ 200 mls/ hr IVPB Q12H [facility] Last Admin: 04/28/17 22:10 Dose: 200 mls/hr Valproate Sodium 250 mg/ (Sodium Chloride) 102.5 mls @ 100 mls/hr IVPB Q6 [facility] Last Admin: 04/28/17 18:10 Dose: 100 mls/hr Vancomycin HCl 500 mg/ Sodium (Chloride) 100 mls @ 100 mls/hr IVPB TTS [facility] Last Admin: 04/27/17 10:53 Dose: 100 mls/hr Insulin Aspart (Novolog) 0 unit SC ACHS [facility] PRN Reason: Protocol Last Admin: 04/28/17 22:11 Dose: Not Given Insulin Detemir (Levemir) 8 unit SC [facility] Last Admin: 04/28/17 22:12 Dose: 8 unit Isosorbide Mononitrate (Imdur) 60 mg PO DAILY [facility] Last Admin: 04/28/17 10:28 Dose: 60 mg Pantoprazole Sodium (Protonix Ec Tab) 40 mg PO DAILY [facility] Last Admin: 04/28/17 10:29 Dose: 40 mg Rosuvastatin Calcium (Crestor) 10 mg PO [facility] Last Admin: 04/28/17 22:09 Dose: 10 mg Vitamin B Complex/Vit C/Folic Acid (Nephro-Courtney) 1 tab PO 0800 [facility] Last Admin: 04/28/17 08:00 Dose: 1 tab Physical Exam - Neurological Exam Additional comments: Lying down in bed Non Verbal recently Bilateral BKA Bilateral blindness, left eye completely discolored [place] [employer] in a [place] Mental Status: Non Verbal, responsive to Painful stimuli by grimacing Non in distress Cranial Nerves II to XII: Bilateral eye blindness as explained. No facial asymmetry Intact Gag Central tongue Motor: Upper Extremities tone is rigid DTR are hard to elicit Power: Moves both sides equally and weakly. Sensory: Intact Pain Cerebellar; Unable to assess. Results - Vital Signs Recent Vital Signs: Last Vital Signs Temp 98.6 F 04/28/17 15:30 Pulse 76 04/28/17 15:30 Resp 20 04/28/17 15:30 BP 110/67 04/28/17 15:30 Pulse Ox 100 04/28/17 15:30 - Labs Result Diagrams: 04/27/17 13:30 04/27/17 13:30 Labs: Laboratory Results - last 24 hr 04/28/17 04/28/17 04/28/17 02:15 06:25 11:34 POC Glucose (mg/dL) 313 H 164 H 151 H 04/28/17 04/28/17 16:54 21:36 POC Glucose (mg/dL) 276 H 311 H Assessment & Plan (1) CVA (cerebral vascular accident) Assessment and Plan: To be ruled out History of Aphasia, does not talk. Status: Acute (2) Abdominal discomfort Status: Acute (3) Accelerated essential hypertension Status: Acute (4) Asthma Status: Acute (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
[2017-04-29] MEDS: Albuterol-Ipratrop 3 mg / 0.5 (3 ml) UD INH SCH ×4 (01:24→19:57)
[2017-04-29] MEDS: guaiFENesin DM 200 mg-20 mg/10 ml UD PO PRN ×2 (03:21→18:33)
[2017-04-29] MEDS: Valproate 250 MG in Sodium Chloride 0.9% 100 ML IVPB SCH ×3 (06:13→18:19)
[2017-04-29] MEDS: (Novolog) Insulin Aspart, Recombinant 100 u/ml 10 ml vial SC SCH ×4 (07:30→22:04)
[2017-04-29 07:47] LABS: CHOLESTEROL 55 mg/dL (0-199)
[2017-04-29 08:17] LABS: THYROID STIMULATING HORMONE 0.52 mIU/L (0.46-4.68)
[2017-04-29] MEDS: Piperacillin/Tazobact 3.375 GM in Sodium Chloride 100 ML IVPB SCH ×2 (10:00→22:03)
[2017-04-29] MEDS: Pantoprazole 40 mg EC Tab PO SCH (10:59)
[2017-04-29] MEDS: Multivitamin Vitamin B Complex (Nephro-Vite) Tab PO SCH (11:02)
--- NOTE | 2017-04-29 11:03 | RAD ---
HISTORY: sob COMPARISON: 04/09/2017 FINDINGS: LUNGS: Interval development of right basilar extensive opacity, likely lower lobe. No other abnormal opacity identified. PLEURA: No significant pleural effusion identified, no pneumothorax apparent. CARDIOVASCULAR: Status post CABG. No congestive change. OSSEOUS STRUCTURES: No significant abnormalities. VISUALIZED UPPER ABDOMEN: Normal. OTHER FINDINGS: None. IMPRESSION: New right basilar infiltrate. Suspicious for pneumonia. Likely lower lobe.
[2017-04-29] MEDS: HYDROmorphone 0.5 mg/0.5 ml ISec IVP PRN ×2 (11:24→18:33)
--- NOTE | 2017-04-29 11:28 | CP.PCM.PN ---
Subjective - Date & Time of Evaluation Date of Evaluation: 04/29/17 Time of Evaluation: 10:00 - Subjective Subjective: Pt is lethargic but easily arousable No SOB Congested cough noted Objective - Vital Signs/Intake and Output Vital Signs (last 24 hours): Temp Pulse Resp BP Pulse Ox 97.1 F L 85 20 114/64 100 04/28/17 23:00 04/29/17 07:30 04/28/17 23:00 04/28/17 23:00 04/28/17 23:00 - Medications Medications: Current Medications Albuterol/Ipratropium (Duoneb 3 Mg/0.5 Mg (3 Ml) Ud) 3 ml INH RQ6 [facility] Last Admin: 04/29/17 07:16 Dose: Not Given Amlodipine Besylate (Norvasc) 10 mg PO DAILY [facility] Last Admin: 04/29/17 11:00 Dose: 10 mg Aspirin (Aspirin Chewable) 81 mg PO DAILY [facility] Last Admin: 04/29/17 10:59 Dose: 81 mg Carvedilol (Coreg) 6.25 mg PO Q12 [facility] Last Admin: 04/29/17 10:59 Dose: 6.25 mg Cyanocobalamin (Vitamin B12 1000 Mcg/Ml Inj) 1,000 mcg IM DAILY [facility] Last Admin: 04/28/17 10:42 Dose: 1,000 mcg Diphenhydramine HCl (Benadryl) 25 mg PO Q8 PRN PRN Reason: Itching / Pruritus Epoetin Tom (Procrit) 10,000 unit IV TTS [facility] Last Admin: 04/27/17 15:43 Dose: 10,000 unit Fentanyl (Duragesic) 1 patch TD Q72H [facility] Last Admin: 04/27/17 09:19 Dose: 1 patch Guaifenesin/Dextromethorphan (Robitussin Dm) 10 ml PO Q4H PRN PRN Reason: Cough and congestion Last Admin: 04/29/17 03:21 Dose: 10 ml Heparin Sodium (Porcine) (Heparin) 5,000 units SC Q8 [facility] Last Admin: 04/29/17 06:15 Dose: 5,000 units Heparin Sodium (Porcine) (Heparin) 4,700 units IVP TTS [facility] Last Admin: 04/27/17 15:45 Dose: 4,700 units Hydromorphone HCl (Dilaudid) 0.5 mg IVP Q6H PRN PRN Reason: Pain, moderate (4-7) Last Admin: 04/28/17 18:05 Dose: 0.5 mg Piperacillin Sod/Tazobactam (Sod 3.375 gm/ Sodium Chloride) 100 mls @ 200 mls/ hr IVPB Q12H [facility] Last Admin: 04/28/17 22:10 Dose: 200 mls/hr Valproate Sodium 250 mg/ (Sodium Chloride) 102.5 mls @ 100 mls/hr IVPB Q6 [facility] Last Admin: 04/29/17 06:13 Dose: 100 mls/hr Vancomycin HCl 500 mg/ Sodium (Chloride) 100 mls @ 100 mls/hr IVPB TTS [facility] Last Admin: 04/27/17 10:53 Dose: 100 mls/hr Levetiracetam 750 mg/ Sodium (Chloride) 107.5 mls @ 420 mls/hr IVPB Q12H [facility] Last Admin: 04/29/17 02:44 Dose: 420 mls/hr Insulin Aspart (Novolog) 0 unit SC ACHS [facility] PRN Reason: Protocol Last Admin: 04/29/17 07:30 Dose: Not Given Insulin Detemir (Levemir) 8 unit SC [facility] Last Admin: 04/28/17 22:12 Dose: 8 unit Isosorbide Mononitrate (Imdur) 60 mg PO DAILY [facility] Last Admin: 04/29/17 11:00 Dose: 60 mg Pantoprazole Sodium (Protonix Ec Tab) 40 mg PO DAILY [facility] Last Admin: 04/29/17 10:59 Dose: 40 mg Rosuvastatin Calcium (Crestor) 10 mg PO [facility] Last Admin: 04/28/17 22:09 Dose: 10 mg Vitamin B Complex/Vit C/Folic Acid (Nephro-Courtney) 1 tab PO 0800 [facility] Last Admin: 04/29/17 11:02 Dose: 1 tab - Labs Labs: 04/27/17 13:30 04/27/17 13:30 - Respiratory Exam Additional comments: Lungs rhonchi - Cardiovascular Exam Cardiovascular Exam: REGULAR RHYTHM - Extremities Exam Additional comments: B/L BKA Assessment and Plan - Assessment and Plan (Free Text) Assessment: ESRD HD, TTS HTN Rt atrial thrombus CAD/CABD Plan: Continue HD per schedule CXR is ordered to r/o pneumonia
[2017-04-29 12:05] LABS: HEMATOCRIT 29.3 % (35.0-51.0); MEAN CELL VOLUME 93.1 fL (80.0-94.0); MEAN CORPUSCULAR HEMOGLOBIN 29.7 pg (27.0-31.0); MEAN CORPUSCULAR HGB CONC 31.9 g/dL (33.0-37.0); MEAN PLATELET VOLUME 9.7 fL (7.2-11.7); RED CELL DISTRIBUTION WIDTH 17.6 % (11.5-14.5); WHITE BLOOD COUNT 14.2 K/uL (4.8-10.8)
[2017-04-29 12:15] LABS: CHLORIDE 100 mmol/L (98-107)
[2017-04-29 12:16] LABS: POTASSIUM 3.9 mmol/L (3.6-5.2); SODIUM 142 mmol/L (132-148)
[2017-04-29 12:18] LABS: GFR AFRICAN-AMERICAN 24
[2017-04-29 12:19] LABS: BLOOD UREA NITROGEN 38 mg/dL (9-20); CALCIUM 9.4 mg/dl (8.6-10.4); CARBON DIOXIDE 25 mmol/L (22-30); GLUCOSE,RANDOM 75 mg/dL (75-110)
--- NOTE | 2017-04-29 17:14 | CP.PCM.PN ---
Subjective - Date & Time of Evaluation Date of Evaluation: 04/29/17 Time of Evaluation: 17:11 - Subjective Subjective: pt seen in bed very sleepy coudnot answer me bs ok Objective - Vital Signs/Intake and Output Vital Signs (last 24 hours): Temp Pulse Resp BP Pulse Ox 97.8 F 76 20 138/72 100 04/29/17 15:45 04/29/17 15:45 04/29/17 15:45 04/29/17 15:45 04/29/17 15:45 - Medications Medications: Current Medications Albuterol/Ipratropium (Duoneb 3 Mg/0.5 Mg (3 Ml) Ud) 3 ml INH RQ6 [facility] Last Admin: 04/29/17 13:16 Dose: Not Given Amlodipine Besylate (Norvasc) 10 mg PO DAILY [facility] Last Admin: 04/29/17 11:00 Dose: 10 mg Aspirin (Aspirin Chewable) 81 mg PO DAILY [facility] Last Admin: 04/29/17 10:59 Dose: 81 mg Carvedilol (Coreg) 6.25 mg PO Q12 [facility] Last Admin: 04/29/17 10:59 Dose: 6.25 mg Cyanocobalamin (Vitamin B12 1000 Mcg/Ml Inj) 1,000 mcg IM DAILY [facility] Last Admin: 04/29/17 11:26 Dose: 1,000 mcg Diphenhydramine HCl (Benadryl) 25 mg PO Q8 PRN PRN Reason: Itching / Pruritus Epoetin Tom (Procrit) 10,000 unit IV TTS [facility] Last Admin: 04/27/17 15:43 Dose: 10,000 unit Fentanyl (Duragesic) 1 patch TD Q72H [facility] Last Admin: 04/27/17 09:19 Dose: 1 patch Guaifenesin/Dextromethorphan (Robitussin Dm) 10 ml PO Q4H PRN PRN Reason: Cough and congestion Last Admin: 04/29/17 03:21 Dose: 10 ml Heparin Sodium (Porcine) (Heparin) 5,000 units SC Q8 [facility] Last Admin: 04/29/17 14:52 Dose: 5,000 units Heparin Sodium (Porcine) (Heparin) 4,700 units IVP TTS [facility] Last Admin: 04/27/17 15:45 Dose: 4,700 units Hydromorphone HCl (Dilaudid) 0.5 mg IVP Q6H PRN PRN Reason: Pain, moderate (4-7) Last Admin: 04/29/17 11:24 Dose: 0.5 mg Piperacillin Sod/Tazobactam (Sod 3.375 gm/ Sodium Chloride) 100 mls @ 200 mls/ hr IVPB Q12H [facility] Last Admin: 04/29/17 10:00 Dose: 200 mls/hr Valproate Sodium 250 mg/ (Sodium Chloride) 102.5 mls @ 100 mls/hr IVPB Q6 [facility] Last Admin: 04/29/17 11:33 Dose: 100 mls/hr Vancomycin HCl 500 mg/ Sodium (Chloride) 100 mls @ 100 mls/hr IVPB TTS [facility] Last Admin: 04/27/17 10:53 Dose: 100 mls/hr Levetiracetam 750 mg/ Sodium (Chloride) 107.5 mls @ 420 mls/hr IVPB Q12H [facility] Last Admin: 04/29/17 12:30 Dose: 420 mls/hr Insulin Aspart (Novolog) 0 unit SC ACHS [facility] PRN Reason: Protocol Last Admin: 04/29/17 11:30 Dose: Not Given Insulin Detemir (Levemir) 8 unit SC [facility] Last Admin: 04/28/17 22:12 Dose: 8 unit Isosorbide Mononitrate (Imdur) 60 mg PO DAILY [facility] Last Admin: 04/29/17 11:00 Dose: 60 mg Pantoprazole Sodium (Protonix Ec Tab) 40 mg PO DAILY [facility] Last Admin: 04/29/17 10:59 Dose: 40 mg Rosuvastatin Calcium (Crestor) 10 mg PO [facility] Last Admin: 04/28/17 22:09 Dose: 10 mg Vitamin B Complex/Vit C/Folic Acid (Nephro-Courtney) 1 tab PO 0800 [facility] Last Admin: 04/29/17 11:02 Dose: 1 tab - Labs Labs: 04/29/17 12:00 04/29/17 07:17 - Constitutional Appears: Non-toxic - Head Exam Head Exam: NORMAL INSPECTION - Eye Exam Eye Exam: Conjunctival injection - ENT Exam ENT Exam: Mucous Membranes Dry - Neck Exam Neck Exam: Full ROM - Respiratory Exam Respiratory Exam: Decreased Breath Sounds - Cardiovascular Exam Cardiovascular Exam: REGULAR RHYTHM - GI/Abdominal Exam GI & Abdominal Exam: Normal Bowel Sounds - Extremities Exam Additional comments: s/p bilateral amputation - Skin Skin Exam: Pallor Assessment and Plan - Assessment and Plan (Free Text) Assessment: ams dmid esrf aneamia Plan: as per orders
--- NOTE | 2017-04-29 18:10 | CT ---
PROCEDURE: CT HEAD WITHOUT CONTRAST. HISTORY: R/O CVA COMPARISON: Noncontrast head CT performed 08/30/16 TECHNIQUE: Axial computed tomography images were obtained through the head/brain without intravenous contrast. Radiation dose: Total exam DLP = 889.03 mGy-cm. This CT exam was performed using one or more of the following dose reduction techniques: Automated exposure control, adjustment of the mA and/or kV according to patient size, and/or use of iterative reconstruction technique. FINDINGS: HEMORRHAGE: No intracranial hemorrhage. BRAIN: Diffuse atrophy with prominence of the ventricles and sulci noted. No mass effect or edema. Intracranial atherosclerotic calcifications. Scattered mild scattered white matter hypodensities, which are nonspecific, but often seen with chronic microvascular ischemic disease. Please note that MRI with diffusion imaging is more sensitive in the detection of acute ischemic event. VENTRICLES: No hydrocephalus. CALVARIUM: Unremarkable. PARANASAL SINUSES: Unremarkable as visualized. No significant inflammatory changes. MASTOID AIR CELLS: Unremarkable as visualized. No inflammatory changes. OTHER FINDINGS: Orbits: Re-identified increased density along posterior left globe with peripheral calcification. Scattered calcifications of posterior globes. Calcifications or postsurgical changes of lenses. IMPRESSION: Generalized atrophy. Mild scattered nonspecific white matter changes. Orbits: Re-identified increased density along posterior left globe with peripheral calcification. Scattered calcifications of posterior globes. Calcifications or postsurgical changes of lenses.
[2017-04-29] MEDS: Insulin Detemir 100 units/ml Vial (Levemir) SC SCH (22:30)
--- NOTE | 2017-04-29 23:43 | CP.PCM.PN ---
Subjective - Date & Time of Evaluation Date of Evaluation: 04/29/17 Time of Evaluation: 20:30 - Subjective Subjective: IMPRESSION of CT Brain: Generalized atrophy. Mild scattered nonspecific white matter changes. Orbits: Re-identified increased density along posterior left globe with peripheral calcification. Scattered calcifications of posterior globes. Calcifications or postsurgical changes of lenses. CXR: is showing findings suggesting Right Lower Lobe Pneumonia. The patient labs are positive for Rheumatoid Factor, Qualitative test or Titer is not performed. Lipid profile is significant for very low HDL, which might predispose to CAD, C.V.A and P.V.D He is more responsive. Objective - Vital Signs/Intake and Output Vital Signs (last 24 hours): Temp Pulse Resp BP Pulse Ox 97.6 F 80 20 125/68 100 04/29/17 22:20 04/29/17 22:20 04/29/17 22:20 04/29/17 22:20 04/29/17 22:20 - Medications Medications: Current Medications Albuterol/Ipratropium (Duoneb 3 Mg/0.5 Mg (3 Ml) Ud) 3 ml INH RQ6 [facility] Last Admin: 04/29/17 19:57 Dose: 3 ml Amlodipine Besylate (Norvasc) 10 mg PO DAILY [facility] Last Admin: 04/29/17 11:00 Dose: 10 mg Aspirin (Aspirin Chewable) 81 mg PO DAILY [facility] Last Admin: 04/29/17 10:59 Dose: 81 mg Carvedilol (Coreg) 6.25 mg PO Q12 [facility] Last Admin: 04/29/17 22:02 Dose: 6.25 mg Cyanocobalamin (Vitamin B12 1000 Mcg/Ml Inj) 1,000 mcg IM DAILY [facility] Last Admin: 04/29/17 11:26 Dose: 1,000 mcg Diphenhydramine HCl (Benadryl) 25 mg PO Q8 PRN PRN Reason: Itching / Pruritus Epoetin Tom (Procrit) 10,000 unit IV TTS [facility] Last Admin: 04/27/17 15:43 Dose: 10,000 unit Fentanyl (Duragesic) 1 patch TD Q72H [facility] Last Admin: 04/27/17 09:19 Dose: 1 patch Guaifenesin/Dextromethorphan (Robitussin Dm) 10 ml PO Q4H PRN PRN Reason: Cough and congestion Last Admin: 04/29/17 18:33 Dose: 10 ml Heparin Sodium (Porcine) (Heparin) 4,700 units IVP TTS [facility] Last Admin: 04/27/17 15:45 Dose: 4,700 units Hydromorphone HCl (Dilaudid) 0.5 mg IVP Q6H PRN PRN Reason: Pain, moderate (4-7) Last Admin: 04/29/17 18:33 Dose: 0.5 mg Piperacillin Sod/Tazobactam (Sod 3.375 gm/ Sodium Chloride) 100 mls @ 200 mls/ hr IVPB Q12H [facility] Last Admin: 04/29/17 22:03 Dose: 200 mls/hr Valproate Sodium 250 mg/ (Sodium Chloride) 102.5 mls @ 100 mls/hr IVPB Q6 [facility] Last Admin: 04/29/17 18:19 Dose: 100 mls/hr Vancomycin HCl 500 mg/ Sodium (Chloride) 100 mls @ 100 mls/hr IVPB TTS [facility] Last Admin: 04/27/17 10:53 Dose: 100 mls/hr Levetiracetam 750 mg/ Sodium (Chloride) 107.5 mls @ 420 mls/hr IVPB Q12H [facility] Last Admin: 04/29/17 12:30 Dose: 420 mls/hr Insulin Aspart (Novolog) 0 unit SC ACHS [facility] PRN Reason: Protocol Last Admin: 04/29/17 22:04 Dose: Not Given Insulin Detemir (Levemir) 8 unit SC HS [facility] Last Admin: 04/28/17 22:12 Dose: 8 unit Isosorbide Mononitrate (Imdur) 60 mg PO DAILY [facility] Last Admin: 04/29/17 11:00 Dose: 60 mg Pantoprazole Sodium (Protonix Ec Tab) 40 mg PO DAILY [facility] Last Admin: 04/29/17 10:59 Dose: 40 mg Rosuvastatin Calcium (Crestor) 10 mg PO HS [facility] Last Admin: 04/29/17 22:03 Dose: 10 mg Vitamin B Complex/Vit C/Folic Acid (Nephro-Courtney) 1 tab PO 0800 [facility] Last Admin: 04/29/17 11:02 Dose: 1 tab - Labs Labs: 04/29/17 12:00 04/29/17 07:17 Assessment and Plan (1) CVA (cerebral vascular accident) Status: Acute (2) Abdominal discomfort Status: Acute (3) Accelerated essential hypertension Status: Acute (4) Asthma Status: Acute (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
[2017-04-30] MEDS: Valproate 250 MG in Sodium Chloride 0.9% 100 ML IVPB SCH ×4 (00:11→18:45)
[2017-04-30] MEDS: Albuterol-Ipratrop 3 mg / 0.5 (3 ml) UD INH SCH ×6 (01:30→23:31)
[2017-04-30] MEDS: HYDROmorphone 0.5 mg/0.5 ml ISec IVP PRN (05:54)
[2017-04-30] MEDS: (Novolog) Insulin Aspart, Recombinant 100 u/ml 10 ml vial SC SCH ×4 (08:17→22:50)
[2017-04-30] MEDS: guaiFENesin DM 200 mg-20 mg/10 ml UD PO PRN ×3 (08:18→19:51)
--- NOTE | 2017-04-30 10:24 | CP.PCM.PN ---
Subjective - Date & Time of Evaluation Date of Evaluation: 04/30/17 Time of Evaluation: 10:21 - Subjective Subjective: pt has a lot of cough sob pnumonia Objective - Vital Signs/Intake and Output Vital Signs (last 24 hours): Temp Pulse Resp BP Pulse Ox 98 F 69 20 102/60 98 04/30/17 09:10 04/30/17 09:10 04/30/17 09:10 04/30/17 09:55 04/30/17 09:10 Intake and Output: 04/30/17 04/30/17 06:59 18:59 Intake Total 440 Balance 440 - Medications Medications: Current Medications Albuterol/Ipratropium (Duoneb 3 Mg/0.5 Mg (3 Ml) Ud) 3 ml INH RQ6 [facility] Last Admin: 04/30/17 07:19 Dose: Not Given Amlodipine Besylate (Norvasc) 10 mg PO DAILY [facility] Last Admin: 04/29/17 11:00 Dose: 10 mg Aspirin (Aspirin Chewable) 81 mg PO DAILY [facility] Last Admin: 04/29/17 10:59 Dose: 81 mg Carvedilol (Coreg) 6.25 mg PO Q12 [facility] Last Admin: 04/29/17 22:02 Dose: 6.25 mg Cyanocobalamin (Vitamin B12 1000 Mcg/Ml Inj) 1,000 mcg IM DAILY [facility] Last Admin: 04/29/17 11:26 Dose: 1,000 mcg Diphenhydramine HCl (Benadryl) 25 mg PO Q8 PRN PRN Reason: Itching / Pruritus Epoetin Tom (Procrit) 10,000 unit IV TTS [facility] Last Admin: 04/27/17 15:43 Dose: 10,000 unit Fentanyl (Duragesic) 1 patch TD Q72H [facility] Last Admin: 04/27/17 09:19 Dose: 1 patch Guaifenesin/Dextromethorphan (Robitussin Dm) 10 ml PO Q4H PRN PRN Reason: Cough and congestion Last Admin: 04/30/17 08:18 Dose: 10 ml Heparin Sodium (Porcine) (Heparin) 4,700 units IVP TTS [facility] Last Admin: 04/27/17 15:45 Dose: 4,700 units Hydromorphone HCl (Dilaudid) 0.5 mg IVP Q6H PRN PRN Reason: Pain, moderate (4-7) Last Admin: 04/30/17 05:54 Dose: 0.5 mg Piperacillin Sod/Tazobactam (Sod 3.375 gm/ Sodium Chloride) 100 mls @ 200 mls/ hr IVPB Q12H [facility] Last Admin: 04/29/17 22:03 Dose: 200 mls/hr Valproate Sodium 250 mg/ (Sodium Chloride) 102.5 mls @ 100 mls/hr IVPB Q6 [facility] Last Admin: 04/30/17 05:29 Dose: 100 mls/hr Vancomycin HCl 500 mg/ Sodium (Chloride) 100 mls @ 100 mls/hr IVPB TTS [facility] Last Admin: 04/27/17 10:53 Dose: 100 mls/hr Levetiracetam 750 mg/ Sodium (Chloride) 107.5 mls @ 420 mls/hr IVPB Q12H [facility] Last Admin: 04/30/17 01:28 Dose: 420 mls/hr Insulin Aspart (Novolog) 0 unit SC ACHS [facility] PRN Reason: Protocol Last Admin: 04/30/17 08:17 Dose: 2 unit Insulin Detemir (Levemir) 8 unit SC [facility] Last Admin: 04/29/17 22:30 Dose: 8 unit Isosorbide Mononitrate (Imdur) 60 mg PO DAILY [facility] Last Admin: 04/29/17 11:00 Dose: 60 mg Pantoprazole Sodium (Protonix Ec Tab) 40 mg PO DAILY [facility] Last Admin: 04/29/17 10:59 Dose: 40 mg Rosuvastatin Calcium (Crestor) 10 mg PO [facility] Last Admin: 04/29/17 22:03 Dose: 10 mg Vitamin B Complex/Vit C/Folic Acid (Nephro-Courtney) 1 tab PO 0800 [facility] Last Admin: 04/29/17 11:02 Dose: 1 tab - Labs Labs: 04/29/17 12:00 04/29/17 07:17 - Constitutional Appears: Non-toxic - Head Exam Head Exam: ATRAUMATIC, NORMAL INSPECTION - Eye Exam Eye Exam: Conjunctival injection - ENT Exam ENT Exam: Mucous Membranes Dry - Neck Exam Neck Exam: Full ROM - Respiratory Exam Respiratory Exam: Decreased Breath Sounds, Rales, Rhonchi - Cardiovascular Exam Cardiovascular Exam: REGULAR RHYTHM - GI/Abdominal Exam GI & Abdominal Exam: Normal Bowel Sounds - Rectal Exam Rectal Exam: NORMAL INSPECTION - Back Exam Back Exam: CVA tenderness (L) - Psychiatric Exam Psychiatric exam: Normal Affect - Skin Skin Exam: Pallor Assessment and Plan - Assessment and Plan (Free Text) Assessment: ac cough ac pnumonia dmid esrf back pain copd cad Plan: cont as per orders
[2017-04-30] MEDS: Epoetin Alfa 10,000 unit/ml Dialysis IV SCH (10:43)
[2017-04-30] MEDS: Multivitamin Vitamin B Complex (Nephro-Vite) Tab PO SCH (10:58)
[2017-04-30] MEDS: Pantoprazole 40 mg EC Tab PO SCH (10:59)
[2017-04-30] MEDS: Piperacillin/Tazobact 3.375 GM in Sodium Chloride 100 ML IVPB SCH ×2 (13:31→22:26)
--- NOTE | 2017-04-30 16:05 | CP.PCM.PN ---
Subjective - Date & Time of Evaluation Date of Evaluation: 04/30/17 Time of Evaluation: 11:00 - Subjective Subjective: Seen on dialysis Remains lethargic. Speech not clear Objective - Vital Signs/Intake and Output Vital Signs (last 24 hours): Temp Pulse Resp BP Pulse Ox 98.7 F 94 H 18 142/83 100 04/30/17 12:40 04/30/17 12:40 04/30/17 12:40 04/30/17 12:40 04/30/17 12:40 Intake and Output: 04/30/17 04/30/17 06:59 18:59 Intake Total 440 760 Balance 440 760 - Medications Medications: Current Medications Albuterol/Ipratropium (Duoneb 3 Mg/0.5 Mg (3 Ml) Ud) 3 ml INH RQ6 [facility] Last Admin: 04/30/17 13:09 Dose: Not Given Amlodipine Besylate (Norvasc) 10 mg PO DAILY [facility] Last Admin: 04/30/17 10:58 Dose: Not Given Aspirin (Aspirin Chewable) 81 mg PO DAILY [facility] Last Admin: 04/30/17 10:57 Dose: Not Given Carvedilol (Coreg) 6.25 mg PO Q12 [facility] Last Admin: 04/30/17 10:57 Dose: Not Given Cyanocobalamin (Vitamin B12 1000 Mcg/Ml Inj) 1,000 mcg IM DAILY [facility] Last Admin: 04/30/17 14:10 Dose: 1,000 mcg Diphenhydramine HCl (Benadryl) 25 mg PO Q8 PRN PRN Reason: Itching / Pruritus Epoetin Tom (Procrit) 10,000 unit IV TTS [facility] Last Admin: 04/30/17 10:43 Dose: 10,000 unit Fentanyl (Duragesic) 1 patch TD Q72H [facility] Last Admin: 04/30/17 14:11 Dose: 1 patch Guaifenesin/Dextromethorphan (Robitussin Dm) 10 ml PO Q4H PRN PRN Reason: Cough and congestion Last Admin: 04/30/17 14:16 Dose: 10 ml Heparin Sodium (Porcine) (Heparin) 5,000 units SC Q12H [facility] Hydromorphone HCl (Dilaudid) 0.5 mg IVP Q6H PRN PRN Reason: Pain, moderate (4-7) Last Admin: 04/30/17 05:54 Dose: 0.5 mg Piperacillin Sod/Tazobactam (Sod 3.375 gm/ Sodium Chloride) 100 mls @ 200 mls/ hr IVPB Q12H [facility] Last Admin: 04/30/17 13:31 Dose: 200 mls/hr Valproate Sodium 250 mg/ (Sodium Chloride) 102.5 mls @ 100 mls/hr IVPB Q6 [facility] Last Admin: 04/30/17 14:11 Dose: 100 mls/hr Vancomycin HCl 500 mg/ Sodium (Chloride) 100 mls @ 100 mls/hr IVPB TTS [facility] Last Admin: 04/30/17 13:28 Dose: 100 mls/hr Levetiracetam 750 mg/ Sodium (Chloride) 107.5 mls @ 420 mls/hr IVPB Q12H [facility] Last Admin: 04/30/17 13:32 Dose: 420 mls/hr Insulin Aspart (Novolog) 0 unit SC ACHS [facility] PRN Reason: Protocol Last Admin: 04/30/17 14:01 Dose: Not Given Insulin Detemir (Levemir) 8 unit SC [facility] Last Admin: 04/29/17 22:30 Dose: 8 unit Isosorbide Mononitrate (Imdur) 60 mg PO DAILY [facility] Last Admin: 04/30/17 10:58 Dose: Not Given Pantoprazole Sodium (Protonix Ec Tab) 40 mg PO DAILY [facility] Last Admin: 04/30/17 10:59 Dose: Not Given Rosuvastatin Calcium (Crestor) 10 mg PO [facility] Last Admin: 04/29/17 22:03 Dose: 10 mg Vitamin B Complex/Vit C/Folic Acid (Nephro-Courtney) 1 tab PO 0800 [facility] Last Admin: 04/30/17 10:58 Dose: Not Given - Labs Labs: 04/29/17 12:00 04/29/17 07:17 - Respiratory Exam Additional comments: Lungs clear - Cardiovascular Exam Cardiovascular Exam: REGULAR RHYTHM - Extremities Exam Additional comments: B/L BKA Assessment and Plan - Assessment and Plan (Free Text) Assessment: ESRD Encephalopathy CAD Rt atrial thrombus HTN Plan: Tolerating dialysis well UF 2.8 kg Continue HD TTS Abx per medical team
[2017-04-30] MEDS ORDERED: HYDROmorphone 0.5 mg/0.5 ml ISec IVP PRN (16:29)
--- NOTE | 2017-04-30 17:47 | CP.PCM.PN ---
Subjective - Date & Time of Evaluation Date of Evaluation: 04/30/17 Time of Evaluation: 17:44 - Subjective Subjective: Events reviewed Objective - Vital Signs/Intake and Output Vital Signs (last 24 hours): Temp Pulse Resp BP Pulse Ox 101.6 F H 106 H 20 165/67 H 97 04/30/17 15:18 04/30/17 15:18 04/30/17 15:18 04/30/17 15:18 04/30/17 15:18 Intake and Output: 04/30/17 04/30/17 06:59 18:59 Intake Total 440 760 Balance 440 760 - Medications Medications: Current Medications Albuterol/Ipratropium (Duoneb 3 Mg/0.5 Mg (3 Ml) Ud) 3 ml INH RQ4 [facility] Last Admin: 04/30/17 16:57 Dose: 3 ml Amlodipine Besylate (Norvasc) 10 mg PO DAILY [facility] Last Admin: 04/30/17 10:58 Dose: Not Given Aspirin (Aspirin Chewable) 81 mg PO DAILY [facility] Last Admin: 04/30/17 10:57 Dose: Not Given Carvedilol (Coreg) 6.25 mg PO Q12 [facility] Last Admin: 04/30/17 10:57 Dose: Not Given Cyanocobalamin (Vitamin B12 1000 Mcg/Ml Inj) 1,000 mcg IM DAILY [facility] Last Admin: 04/30/17 14:10 Dose: 1,000 mcg Diphenhydramine HCl (Benadryl) 25 mg PO Q8 PRN PRN Reason: Itching / Pruritus Epoetin Tom (Procrit) 10,000 unit IV TTS [facility] Last Admin: 04/30/17 10:43 Dose: 10,000 unit Guaifenesin/Dextromethorphan (Robitussin Dm) 10 ml PO Q4H PRN PRN Reason: Cough and congestion Last Admin: 04/30/17 14:16 Dose: 10 ml Heparin Sodium (Porcine) (Heparin) 5,000 units SC Q12H [facility] Hydromorphone HCl (Dilaudid) 0.5 mg IVP Q6H PRN PRN Reason: Pain, moderate (4-7) Piperacillin Sod/Tazobactam (Sod 3.375 gm/ Sodium Chloride) 100 mls @ 200 mls/ hr IVPB Q12H [facility] Last Admin: 04/30/17 13:31 Dose: 200 mls/hr Valproate Sodium 250 mg/ (Sodium Chloride) 102.5 mls @ 100 mls/hr IVPB Q6 [facility] Last Admin: 04/30/17 14:11 Dose: 100 mls/hr Vancomycin HCl 500 mg/ Sodium (Chloride) 100 mls @ 100 mls/hr IVPB TTS [facility] Last Admin: 04/30/17 13:28 Dose: 100 mls/hr Levetiracetam 750 mg/ Sodium (Chloride) 107.5 mls @ 420 mls/hr IVPB Q12H [facility] Last Admin: 04/30/17 13:32 Dose: 420 mls/hr Insulin Aspart (Novolog) 0 unit SC ACHS [facility] PRN Reason: Protocol Last Admin: 04/30/17 14:01 Dose: Not Given Insulin Detemir (Levemir) 8 unit SC HS [facility] Last Admin: 04/29/17 22:30 Dose: 8 unit Isosorbide Mononitrate (Imdur) 60 mg PO DAILY [facility] Last Admin: 04/30/17 10:58 Dose: Not Given Pantoprazole Sodium (Protonix Ec Tab) 40 mg PO DAILY [facility] Last Admin: 04/30/17 10:59 Dose: Not Given Rosuvastatin Calcium (Crestor) 10 mg PO HS [facility] Last Admin: 04/29/17 22:03 Dose: 10 mg Vitamin B Complex/Vit C/Folic Acid (Nephro-Courtney) 1 tab PO 0800 [facility] Last Admin: 04/30/17 10:58 Dose: Not Given - Labs Labs: 04/29/17 12:00 04/29/17 07:17 Assessment and Plan - Assessment and Plan (Free Text) Assessment: 36 year old man with RV thrombus which is now improved with anticoagulation at [facility]. I would resume heparin. Untimatley he will benefit from Novel oral anticoagulate for intracardiac mass but anemia has been an issue in the past. I would either resume heparin or seek GI consult/neurology follow up reagarding the safety of anticoagulation. 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
[2017-04-30 19:53] LABS: BASO % 0.4 % (0.0-2.0); EOS # 0.1 K/uL (0.0-0.7); HEMATOCRIT 28.8 % (35.0-51.0); LYMPH # 1.5 K/uL (1.0-4.3); LYMPH % 12.3 % (20.0-40.0); MEAN CELL VOLUME 93.6 fL (80.0-94.0); MEAN CORPUSCULAR HEMOGLOBIN 29.6 pg (27.0-31.0); MEAN CORPUSCULAR HGB CONC 31.6 g/dL (33.0-37.0); MEAN PLATELET VOLUME 9.4 fL (7.2-11.7); MONO # 1.4 K/uL (0.0-0.8); MONO % 11.5 % (0.0-10.0); RED CELL DISTRIBUTION WIDTH 17.4 % (11.5-14.5); WHITE BLOOD COUNT 12.6 K/uL (4.8-10.8)
[2017-04-30] MEDS: Insulin Detemir 100 units/ml Vial (Levemir) SC SCH (22:44)
--- NOTE | 2017-04-30 23:59 | CP.PCM.PN ---
Subjective - Date & Time of Evaluation Date of Evaluation: 04/30/17 Time of Evaluation: 21:00 - Subjective Subjective: Right Lower Lobe pneumonia is affecting his condition and his ability to talk and act. Although slightly lethargic, he is slightly improving and IV Heparin is started for Right Ventricular thrombus. Objective - Vital Signs/Intake and Output Vital Signs (last 24 hours): Temp Pulse Resp BP Pulse Ox 98.6 F 98 H 20 140/70 100 04/30/17 20:30 04/30/17 20:30 04/30/17 20:30 04/30/17 20:30 04/30/17 20:30 Intake and Output: 04/30/17 05/01/17 18:59 06:59 Intake Total 760 Balance 760 - Medications Medications: Current Medications Albuterol/Ipratropium (Duoneb 3 Mg/0.5 Mg (3 Ml) Ud) 3 ml INH RQ4 [facility] Last Admin: 04/30/17 23:31 Dose: Not Given Amlodipine Besylate (Norvasc) 10 mg PO DAILY [facility] Last Admin: 04/30/17 10:58 Dose: Not Given Aspirin (Aspirin Chewable) 81 mg PO DAILY [facility] Last Admin: 04/30/17 10:57 Dose: Not Given Carvedilol (Coreg) 6.25 mg PO Q12 [facility] Last Admin: 04/30/17 22:20 Dose: 6.25 mg Cyanocobalamin (Vitamin B12 1000 Mcg/Ml Inj) 1,000 mcg IM DAILY [facility] Last Admin: 04/30/17 14:10 Dose: 1,000 mcg Diphenhydramine HCl (Benadryl) 25 mg PO Q8 PRN PRN Reason: Itching / Pruritus Epoetin Tom (Procrit) 10,000 unit IV TTS [facility] Last Admin: 04/30/17 10:43 Dose: 10,000 unit Guaifenesin/Dextromethorphan (Robitussin Dm) 10 ml PO Q4H PRN PRN Reason: Cough and congestion Last Admin: 04/30/17 19:51 Dose: 10 ml Heparin Sodium (Porcine) (Heparin) 5,000 units SC Q12H [facility] Last Admin: 04/30/17 22:00 Dose: 5,000 units Hydromorphone HCl (Dilaudid) 0.5 mg IVP Q6H PRN PRN Reason: Pain, moderate (4-7) Last Admin: 04/30/17 20:00 Dose: 0.5 mg Piperacillin Sod/Tazobactam (Sod 3.375 gm/ Sodium Chloride) 100 mls @ 200 mls/ hr IVPB Q12H [facility] Last Admin: 04/30/17 22:26 Dose: 200 mls/hr Valproate Sodium 250 mg/ (Sodium Chloride) 102.5 mls @ 100 mls/hr IVPB Q6 [facility] Last Admin: 04/30/17 18:45 Dose: 100 mls/hr Vancomycin HCl 500 mg/ Sodium (Chloride) 100 mls @ 100 mls/hr IVPB TTS [facility] Last Admin: 04/30/17 13:28 Dose: 100 mls/hr Levetiracetam 750 mg/ Sodium (Chloride) 107.5 mls @ 420 mls/hr IVPB Q12H [facility] Last Admin: 04/30/17 13:32 Dose: 420 mls/hr Insulin Aspart (Novolog) 0 unit SC ACHS [facility] PRN Reason: Protocol Last Admin: 04/30/17 17:30 Dose: 4 unit Insulin Detemir (Levemir) 8 unit SC [facility] Last Admin: 04/30/17 22:44 Dose: 8 unit Isosorbide Mononitrate (Imdur) 60 mg PO DAILY [facility] Last Admin: 04/30/17 10:58 Dose: Not Given Pantoprazole Sodium (Protonix Ec Tab) 40 mg PO DAILY [facility] Last Admin: 04/30/17 10:59 Dose: Not Given Rosuvastatin Calcium (Crestor) 10 mg PO [facility] Last Admin: 04/30/17 22:42 Dose: 10 mg Vitamin B Complex/Vit C/Folic Acid (Nephro-Courtney) 1 tab PO 0800 [facility] Last Admin: 04/30/17 10:58 Dose: Not Given - Labs Labs: 04/30/17 19:46 04/29/17 07:17 Assessment and Plan (1) CVA (cerebral vascular accident) Status: Acute (2) Abdominal discomfort Status: Acute (3) Accelerated essential hypertension Status: Acute (4) Asthma Status: Acute (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
[2017-05-01] MEDS: Valproate 250 MG in Sodium Chloride 0.9% 100 ML IVPB SCH ×4 (00:02→16:55)
[2017-05-01] MEDS: Albuterol-Ipratrop 3 mg / 0.5 (3 ml) UD INH SCH ×5 (03:10→13:37)
[2017-05-01] MEDS: (Novolog) Insulin Aspart, Recombinant 100 u/ml 10 ml vial SC SCH ×4 (08:30→21:26)
[2017-05-01] MEDS: Pantoprazole 40 mg EC Tab PO SCH (09:41)
[2017-05-01] MEDS: Multivitamin Vitamin B Complex (Nephro-Vite) Tab PO SCH (09:44)
--- NOTE | 2017-05-01 11:08 | CP.PCM.PN ---
Subjective - Date & Time of Evaluation Date of Evaluation: 05/01/17 Time of Evaluation: 11:05 - Subjective Subjective: has cough sob fever last night geting eeg now Objective - Vital Signs/Intake and Output Vital Signs (last 24 hours): Temp Pulse Resp BP Pulse Ox 98.1 F 71 18 135/77 96 05/01/17 07:45 05/01/17 07:45 05/01/17 07:45 05/01/17 07:45 05/01/17 07:45 Intake and Output: 05/01/17 05/01/17 06:59 18:59 Intake Total 900 Balance 900 - Medications Medications: Current Medications Albuterol/Ipratropium (Duoneb 3 Mg/0.5 Mg (3 Ml) Ud) 3 ml INH RQ4 [facility] Last Admin: 05/01/17 08:11 Dose: 3 ml Amlodipine Besylate (Norvasc) 10 mg PO DAILY [facility] Last Admin: 05/01/17 09:41 Dose: 10 mg Aspirin (Aspirin Chewable) 81 mg PO DAILY [facility] Last Admin: 05/01/17 09:41 Dose: 81 mg Carvedilol (Coreg) 6.25 mg PO Q12 [facility] Last Admin: 05/01/17 09:41 Dose: 6.25 mg Cyanocobalamin (Vitamin B12 1000 Mcg/Ml Inj) 1,000 mcg IM DAILY [facility] Last Admin: 05/01/17 09:41 Dose: 1,000 mcg Diphenhydramine HCl (Benadryl) 25 mg PO Q8 PRN PRN Reason: Itching / Pruritus Epoetin Tom (Procrit) 10,000 unit IV TTS [facility] Last Admin: 04/30/17 10:43 Dose: 10,000 unit Guaifenesin/Dextromethorphan (Robitussin Dm) 10 ml PO Q4H PRN PRN Reason: Cough and congestion Last Admin: 04/30/17 19:51 Dose: 10 ml Heparin Sodium (Porcine) (Heparin) 5,000 units SC Q12H [facility] Last Admin: 05/01/17 09:41 Dose: 5,000 units Hydromorphone HCl (Dilaudid) 0.5 mg SC Q6H PRN PRN Reason: Pain, moderate (4-7) Piperacillin Sod/Tazobactam (Sod 3.375 gm/ Sodium Chloride) 100 mls @ 200 mls/ hr IVPB Q12H [facility] Last Admin: 04/30/17 22:26 Dose: 200 mls/hr Valproate Sodium 250 mg/ (Sodium Chloride) 102.5 mls @ 100 mls/hr IVPB Q6 [facility] Last Admin: 05/01/17 05:09 Dose: Not Given Vancomycin HCl 500 mg/ Sodium (Chloride) 100 mls @ 100 mls/hr IVPB TTS [facility] Last Admin: 04/30/17 13:28 Dose: 100 mls/hr Levetiracetam 750 mg/ Sodium (Chloride) 107.5 mls @ 420 mls/hr IVPB Q12H [facility] Last Admin: 05/01/17 01:14 Dose: 420 mls/hr Insulin Aspart (Novolog) 0 unit SC [facility] PRN Reason: Protocol Last Admin: 05/01/17 08:30 Dose: 2 unit Insulin Detemir (Levemir) 8 unit SC [facility] Last Admin: 04/30/17 22:44 Dose: 8 unit Isosorbide Mononitrate (Imdur) 60 mg PO DAILY [facility] Last Admin: 05/01/17 09:41 Dose: 60 mg Pantoprazole Sodium (Protonix Ec Tab) 40 mg PO DAILY [facility] Last Admin: 05/01/17 09:41 Dose: 40 mg Rosuvastatin Calcium (Crestor) 10 mg PO [facility] Last Admin: 04/30/17 22:42 Dose: 10 mg Vitamin B Complex/Vit C/Folic Acid (Nephro-Courtney) 1 tab PO 0800 [facility] Last Admin: 05/01/17 09:44 Dose: 1 tab - Labs Labs: 04/30/17 19:46 04/29/17 07:17 - Constitutional Appears: In Acute Distress - Head Exam Head Exam: ATRAUMATIC - Eye Exam Eye Exam: Conjunctival injection - ENT Exam ENT Exam: Mucous Membranes Moist - Neck Exam Neck Exam: Full ROM - Respiratory Exam Respiratory Exam: Decreased Breath Sounds, Rales - Cardiovascular Exam Cardiovascular Exam: REGULAR RHYTHM - GI/Abdominal Exam GI & Abdominal Exam: Normal Bowel Sounds - Rectal Exam Rectal Exam: NORMAL INSPECTION - Back Exam Back Exam: CVA tenderness (L), NORMAL INSPECTION - Psychiatric Exam Psychiatric exam: Depressed - Skin Skin Exam: Pallor Assessment and Plan - Assessment and Plan (Free Text) Assessment: ac pnumonia esrf s/p ams s/p endocarditis cad dmid Plan: as per orders
[2017-05-01] MEDS: Piperacillin/Tazobact 3.375 GM in Sodium Chloride 100 ML IVPB SCH ×2 (12:26→21:24)
--- NOTE | 2017-05-01 14:14 | CP.PCM.PN ---
Subjective - Date & Time of Evaluation Date of Evaluation: 05/01/17 Time of Evaluation: 13:00 - Subjective Subjective: PT SEEN BY DR. BELL DURING HER ROUNDS. REQUESTING A PICC LINE FOR IV ACCESS. CONSENT DONE WITH PT. HE VERBALIZES UNDERSTANDING OF BENEFITS AND RISKS OF PICC. PT SIGNED CONSENT WITH ASSISTANT VICE PRESIDENT AND PRIMARY RN MARYSOL. NO FURTHER ORDERS. Objective - Vital Signs/Intake and Output Vital Signs (last 24 hours): Temp Pulse Resp BP Pulse Ox 98.1 F 71 18 135/77 96 05/01/17 07:45 05/01/17 07:45 05/01/17 07:45 05/01/17 07:45 05/01/17 07:45 Intake and Output: 05/01/17 05/01/17 06:59 18:59 Intake Total 900 Balance 900 - Medications Medications: Current Medications Albuterol/Ipratropium (Duoneb 3 Mg/0.5 Mg (3 Ml) Ud) 3 ml INH RQ4 [facility] Last Admin: 05/01/17 13:37 Dose: 3 ml Amlodipine Besylate (Norvasc) 10 mg PO DAILY [facility] Last Admin: 05/01/17 09:41 Dose: 10 mg Aspirin (Aspirin Chewable) 81 mg PO DAILY [facility] Last Admin: 05/01/17 09:41 Dose: 81 mg Carvedilol (Coreg) 6.25 mg PO Q12 [facility] Last Admin: 05/01/17 09:41 Dose: 6.25 mg Cyanocobalamin (Vitamin B12 1000 Mcg/Ml Inj) 1,000 mcg IM DAILY [facility] Last Admin: 05/01/17 09:41 Dose: 1,000 mcg Diphenhydramine HCl (Benadryl) 25 mg PO Q8 PRN PRN Reason: Itching / Pruritus Epoetin Tom (Procrit) 10,000 unit IV TTS [facility] Last Admin: 04/30/17 10:43 Dose: 10,000 unit Guaifenesin/Dextromethorphan (Robitussin Dm) 10 ml PO Q4H PRN PRN Reason: Cough and congestion Last Admin: 04/30/17 19:51 Dose: 10 ml Heparin Sodium (Porcine) (Heparin) 5,000 units SC Q12H [facility] Last Admin: 05/01/17 09:41 Dose: 5,000 units Hydromorphone HCl (Dilaudid) 0.5 mg SC Q6H PRN PRN Reason: Pain, moderate (4-7) Piperacillin Sod/Tazobactam (Sod 3.375 gm/ Sodium Chloride) 100 mls @ 200 mls/ hr IVPB Q12H [facility] Last Admin: 05/01/17 12:26 Dose: Not Given Valproate Sodium 250 mg/ (Sodium Chloride) 102.5 mls @ 100 mls/hr IVPB Q6 [facility] Last Admin: 05/01/17 13:05 Dose: Not Given Vancomycin HCl 500 mg/ Sodium (Chloride) 100 mls @ 100 mls/hr IVPB TTS [facility] Last Admin: 04/30/17 13:28 Dose: 100 mls/hr Levetiracetam 750 mg/ Sodium (Chloride) 107.5 mls @ 420 mls/hr IVPB Q12H [facility] Last Admin: 05/01/17 14:13 Dose: Not Given Insulin Aspart (Novolog) 0 unit SC ACHS [facility] PRN Reason: Protocol Last Admin: 05/01/17 12:39 Dose: 1 unit Insulin Detemir (Levemir) 8 unit SC [facility] Last Admin: 04/30/17 22:44 Dose: 8 unit Isosorbide Mononitrate (Imdur) 60 mg PO DAILY [facility] Last Admin: 05/01/17 09:41 Dose: 60 mg Pantoprazole Sodium (Protonix Ec Tab) 40 mg PO DAILY [facility] Last Admin: 05/01/17 09:41 Dose: 40 mg Rosuvastatin Calcium (Crestor) 10 mg PO [facility] Last Admin: 04/30/17 22:42 Dose: 10 mg Vitamin B Complex/Vit C/Folic Acid (Nephro-Courtney) 1 tab PO 0800 [facility] Last Admin: 05/01/17 09:44 Dose: 1 tab - Labs Labs: 04/30/17 19:46 04/29/17 07:17
--- NOTE | 2017-05-01 14:47 | CP.PCM.PN ---
Subjective - Date & Time of Evaluation Date of Evaluation: 05/01/17 Time of Evaluation: 02:30 - Subjective Subjective: Alert. Sitting up in bed Denies feeling SOB Objective - Vital Signs/Intake and Output Vital Signs (last 24 hours): Temp Pulse Resp BP Pulse Ox 98.1 F 71 18 135/77 96 05/01/17 07:45 05/01/17 07:45 05/01/17 07:45 05/01/17 07:45 05/01/17 07:45 Intake and Output: 05/01/17 05/01/17 06:59 18:59 Intake Total 900 Balance 900 - Medications Medications: Current Medications Albuterol/Ipratropium (Duoneb 3 Mg/0.5 Mg (3 Ml) Ud) 3 ml INH RQ4 [facility] Last Admin: 05/01/17 13:37 Dose: 3 ml Amlodipine Besylate (Norvasc) 10 mg PO DAILY [facility] Last Admin: 05/01/17 09:41 Dose: 10 mg Aspirin (Aspirin Chewable) 81 mg PO DAILY [facility] Last Admin: 05/01/17 09:41 Dose: 81 mg Carvedilol (Coreg) 6.25 mg PO Q12 [facility] Last Admin: 05/01/17 09:41 Dose: 6.25 mg Cyanocobalamin (Vitamin B12 1000 Mcg/Ml Inj) 1,000 mcg IM DAILY [facility] Last Admin: 05/01/17 09:41 Dose: 1,000 mcg Diphenhydramine HCl (Benadryl) 25 mg PO Q8 PRN PRN Reason: Itching / Pruritus Epoetin Tom (Procrit) 10,000 unit IV TTS [facility] Last Admin: 04/30/17 10:43 Dose: 10,000 unit Guaifenesin/Dextromethorphan (Robitussin Dm) 10 ml PO Q4H PRN PRN Reason: Cough and congestion Last Admin: 04/30/17 19:51 Dose: 10 ml Heparin Sodium (Porcine) (Heparin) 5,000 units SC Q12H [facility] Last Admin: 05/01/17 09:41 Dose: 5,000 units Hydromorphone HCl (Dilaudid) 0.5 mg SC Q6H PRN PRN Reason: Pain, moderate (4-7) Piperacillin Sod/Tazobactam (Sod 3.375 gm/ Sodium Chloride) 100 mls @ 200 mls/ hr IVPB Q12H [facility] Last Admin: 05/01/17 12:26 Dose: Not Given Valproate Sodium 250 mg/ (Sodium Chloride) 102.5 mls @ 100 mls/hr IVPB Q6 [facility] Last Admin: 05/01/17 13:05 Dose: Not Given Vancomycin HCl 500 mg/ Sodium (Chloride) 100 mls @ 100 mls/hr IVPB TTS [facility] Last Admin: 04/30/17 13:28 Dose: 100 mls/hr Levetiracetam 750 mg/ Sodium (Chloride) 107.5 mls @ 420 mls/hr IVPB Q12H [facility] Last Admin: 05/01/17 14:13 Dose: Not Given Insulin Aspart (Novolog) 0 unit SC ACHS [facility] PRN Reason: Protocol Last Admin: 05/01/17 12:39 Dose: 1 unit Insulin Detemir (Levemir) 8 unit SC [facility] Last Admin: 04/30/17 22:44 Dose: 8 unit Isosorbide Mononitrate (Imdur) 60 mg PO DAILY [facility] Last Admin: 05/01/17 09:41 Dose: 60 mg Pantoprazole Sodium (Protonix Ec Tab) 40 mg PO DAILY [facility] Last Admin: 05/01/17 09:41 Dose: 40 mg Rosuvastatin Calcium (Crestor) 10 mg PO [facility] Last Admin: 04/30/17 22:42 Dose: 10 mg Vitamin B Complex/Vit C/Folic Acid (Nephro-Courtney) 1 tab PO 0800 [facility] Last Admin: 05/01/17 09:44 Dose: 1 tab - Labs Labs: 04/30/17 19:46 04/29/17 07:17 - Respiratory Exam Additional comments: Lungs clear - Cardiovascular Exam Cardiovascular Exam: REGULAR RHYTHM - Extremities Exam Additional comments: B/L BKA Assessment and Plan - Assessment and Plan (Free Text) Assessment: ESRD on HD CAD, RT atrial vegetation ?Pneumonia HTN Plan: Continue HD per schedule Abx per ID Monitor Hb
--- NOTE | 2017-05-01 16:12 | CP.PCM.PN ---
Subjective - Date & Time of Evaluation Date of Evaluation: 05/01/17 Time of Evaluation: 16:10 - Subjective Subjective: No acute distress No CP or SOB Alert and oriented R. antecubital peripheral IV placed by u/s guidance. Objective - Vital Signs/Intake and Output Vital Signs (last 24 hours): Temp Pulse Resp BP Pulse Ox 98.1 F 71 18 135/77 96 05/01/17 07:45 05/01/17 07:45 05/01/17 07:45 05/01/17 07:45 05/01/17 07:45 Intake and Output: 05/01/17 05/01/17 06:59 18:59 Intake Total 900 Balance 900 - Medications Medications: Current Medications Albuterol/Ipratropium (Duoneb 3 Mg/0.5 Mg (3 Ml) Ud) 3 ml INH RQ4 [facility] Last Admin: 05/01/17 13:37 Dose: 3 ml Amlodipine Besylate (Norvasc) 10 mg PO DAILY [facility] Last Admin: 05/01/17 09:41 Dose: 10 mg Aspirin (Aspirin Chewable) 81 mg PO DAILY [facility] Last Admin: 05/01/17 09:41 Dose: 81 mg Carvedilol (Coreg) 6.25 mg PO Q12 [facility] Last Admin: 05/01/17 09:41 Dose: 6.25 mg Cyanocobalamin (Vitamin B12 1000 Mcg/Ml Inj) 1,000 mcg IM DAILY [facility] Last Admin: 05/01/17 09:41 Dose: 1,000 mcg Diphenhydramine HCl (Benadryl) 25 mg PO Q8 PRN PRN Reason: Itching / Pruritus Epoetin Tom (Procrit) 10,000 unit IV TTS [facility] Last Admin: 04/30/17 10:43 Dose: 10,000 unit Guaifenesin/Dextromethorphan (Robitussin Dm) 10 ml PO Q4H PRN PRN Reason: Cough and congestion Last Admin: 04/30/17 19:51 Dose: 10 ml Heparin Sodium (Porcine) (Heparin) 5,000 units SC Q12H [facility] Last Admin: 05/01/17 09:41 Dose: 5,000 units Hydromorphone HCl (Dilaudid) 0.5 mg SC Q6H PRN PRN Reason: Pain, moderate (4-7) Piperacillin Sod/Tazobactam (Sod 3.375 gm/ Sodium Chloride) 100 mls @ 200 mls/ hr IVPB Q12H [facility] Last Admin: 05/01/17 12:26 Dose: Not Given Valproate Sodium 250 mg/ (Sodium Chloride) 102.5 mls @ 100 mls/hr IVPB Q6 [facility] Last Admin: 05/01/17 13:05 Dose: Not Given Vancomycin HCl 500 mg/ Sodium (Chloride) 100 mls @ 100 mls/hr IVPB TTS [facility] Last Admin: 04/30/17 13:28 Dose: 100 mls/hr Levetiracetam 750 mg/ Sodium (Chloride) 107.5 mls @ 420 mls/hr IVPB Q12H [facility] Last Admin: 05/01/17 14:13 Dose: Not Given Insulin Aspart (Novolog) 0 unit SC ACHS [facility] PRN Reason: Protocol Last Admin: 05/01/17 12:39 Dose: 1 unit Insulin Detemir (Levemir) 8 unit SC [facility] Last Admin: 04/30/17 22:44 Dose: 8 unit Isosorbide Mononitrate (Imdur) 60 mg PO DAILY [facility] Last Admin: 05/01/17 09:41 Dose: 60 mg Pantoprazole Sodium (Protonix Ec Tab) 40 mg PO DAILY [facility] Last Admin: 05/01/17 09:41 Dose: 40 mg Rosuvastatin Calcium (Crestor) 10 mg PO [facility] Last Admin: 04/30/17 22:42 Dose: 10 mg Vitamin B Complex/Vit C/Folic Acid (Nephro-Courtney) 1 tab PO 0800 [facility] Last Admin: 05/01/17 09:44 Dose: 1 tab - Labs Labs: 04/30/17 19:46 04/29/17 07:17 - Constitutional Appears: No Acute Distress - Head Exam Head Exam: ATRAUMATIC, NORMAL INSPECTION, NORMOCEPHALIC - Eye Exam Eye Exam: absent: Normal appearance, Scleral icterus - ENT Exam ENT Exam: Mucous Membranes Moist, Normal Oropharynx - Neck Exam Neck Exam: Full ROM - Respiratory Exam Respiratory Exam: Clear to Ausculation Bilateral, NORMAL BREATHING PATTERN - Cardiovascular Exam Cardiovascular Exam: REGULAR RHYTHM, +S1, +S2, Murmur (systolic LUSB 2/6) - Extremities Exam Extremities Exam: absent: Normal Inspection (b/l BKA), Pedal Edema - Additional Findings Additional findings: R. chest wall port for HD Assessment and Plan - Assessment and Plan (Free Text) Assessment: 36 year old man with RV thrombus which is now improved with anticoagulationl. Repeat echo 04/27/17: directly viewed by me: Normal LVEF, mod LVH, mod-sev pulm HTN, Grade 2 diastolic dysfunction Mild AI, MR,TR No longer seen is the R. atrial mass which was probable attached to R. HD catheter. > I would resume heparin. Untimatly he will benefit from Novel oral anticoagulate for intracardiac mass and also paroxysms of aflutter in past but anemia has been an issue in the past. Consider rechallenge with eliquis 2.5 BID I would either resume heparin or seek GI consult/neurology follow up regarding the safety of anticoagulation. ESRD on HD Health care associated PNA on ABX wide a wide spectrum of coverage Laryngeal injury due to intubation at [facility] HTN is chronic and stable on current medications DM - Brittle on insulin PVD s/p b/l BKA CAD s/p CABG and PCI now non revascularizable, ranexa and nitrates, high dose statin
[2017-05-01] MEDS: guaiFENesin DM 200 mg-20 mg/10 ml UD PO PRN (16:50)
--- NOTE | 2017-05-01 17:58 | CP.PCM.CON ---
History of Present Illness - History of Present Illness History of Present Illness: 36 yo w/ pmh of CAD, ESRD, HTN, endocarditis that was sent back from [facility]. He apparently was sent for consideration of intracardiac clot removal but it was decided that he was high risk and aborted. His stay was complicated by a severe hypoglycemic episode that required intubation. He was getting HD there TTS and apparently had to get some transfusions as well. He has no complaints. He was seen on HD. admitted with fevers r/o endocarditis Patient was also intubated for episode of hypoglycemia. Now he is on iv antibiotics for possible sepsis and was transferred back to [facility]. Patient has dysarthria and cannot talk He was getting HD there on T,T,S and apparently had to get some transfusions as well. He has no complaints. Review of Systems - Review of Systems All systems: reviewed and no additional remarkable complaints except - Constitutional Constitutional: As Per HPI - EENT Eyes: Blind Spots, Blurred Vision Ears: absent: As Per HPI, Decreased Hearing, Ear Discharge, Ear Pain, Tinnitus, Abnormal Hearing, Disequilibrium, Dizziness, Other - Cardiovascular Cardiovascular: As Per HPI - Respiratory Respiratory: absent: As Per HPI, Cough, Dyspnea, Hemoptysis, Dyspnea on Exertion , Wheezing, Snoring, Stridor, Pain on Inspiration, Chest Congestion, Excessive Mucous Production, Change in Mucous Color, Pain with Coughing, Other - Gastrointestinal Gastrointestinal: absent: As Per HPI, Abdominal Pain, Belching, Bloating, Change in Bowel Habits, Change in Stool Character, Coffee Ground Emesis, Constipation, Cramping, Diarrhea, Dyspepsia, Dysphagia, Early Satiety, Excessive Flatus, Fecal Incontinence, Heartburn, Hematemesis, Hematochezia, Loose Stools, Melena, Nausea, Odynophagia, Temesmus, Vomiting, Other - Genitourinary Genitourinary: absent: As Per HPI, Change in Urinary Stream, Difficulty Urinating, Dysuria, Flank Pain, Hematuria, Pyuria, Nocturia, Urinary Incontinence, Urinary Frequency, Urinary Hesitance, Urinary Urgency, Voiding Freq/Small Amts, Freq UTI, Hx Renal/Bladder Calculi, Hx /Renal Surgery, Bladder Distension, Other - Musculoskeletal Musculoskeletal: As Per HPI - Integumentary Integumentary: As Per HPI - Neurological Neurological: As Per HPI - Psychiatric Psychiatric: As Per HPI - Endocrine Endocrine: absent: As Per HPI, Change in Body Appearance, Change in Libido, Cold Intolorance, Deepening of Voice, Excessive Sweating, Fatigue, Flushing, Heat Intolorance, Increase in Ring/Shoe/Hat Size, Palpitations, Polydipsia, Polyphagia, Polyuria, Other - Hematologic/Lymphatic Hematologic: absent: As Per HPI, Easy Bleeding, Easy Bruising, Lymphadenopathy, Other Past Patient History - Infectious Disease Hx of Infectious Diseases: None - Tetanus Immunizations Tetanus Immunization: >10 years Ago - Past Medical History & Family History Past Medical History?: Yes - Past Social History Smoking Status: Never Smoked - CARDIAC Hx Cardiac Disorders: (ND, Cardiac Arrhythmia, Angina, Coronary stent, CAD, CABG) Hx Congestive Heart Failure: Yes Hx Hypercholesterolemia: Yes Hx Hypertension: Yes - PULMONARY Hx Chronic Obstructive Pulmonary Disease (COPD): Yes - NEUROLOGICAL Hx Alzheimer's Disease: Yes Hx Seizures: Yes - HEENT Hx HEENT Problems: Yes Hx Blind: Yes (legally blind) Hx Cataracts: Yes - RENAL Hx Renal Failure: Yes (Yes: ESRD, AV shunt) - ENDOCRINE/METABOLIC Hx Diabetes Mellitus Type 2: Yes Hx Hypothyroidism: Yes - HEMATOLOGICAL/ONCOLOGICAL Hx Anemia: Yes - INTEGUMENTARY Hx Dermatological Problems: No - MUSCULOSKELETAL/RHEUMATOLOGICAL Hx Falls: No - GASTROINTESTINAL Hx Gall Bladder Disease: Yes Hx Gastritis: Yes - GENITOURINARY/GYNECOLOGICAL Hx Genitourinary Disorders: No Hx Sexually Transmitted Disorders: No - PSYCHIATRIC Hx Substance Use: No - SURGICAL HISTORY Hx Amputation: Yes (bilateral BKA) Hx Cholecystectomy: Yes (2011) 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/2009) Hx Coronary Stent: Yes - ANESTHESIA Hx Anesthesia: Yes Hx Anesthesia Reactions: No Hx Malignant Hyperthermia: No Meds Allergies/Adverse Reactions: Allergies Allergy/AdvReac Type Severity Reaction Status Date / Time acetaminophen [From Percocet] Allergy RASH Verified 04/09/17 10:25 atenolol Allergy RASH Verified 04/09/17 10:25 digoxin Allergy RASH Verified 04/09/17 10:25 milk Allergy ITCHING Verified 04/09/17 10:25 morphine Allergy RASH Verified 04/09/17 10:28 oxycodone HCl [From Percocet] Allergy RASH Verified 04/09/17 10:25 - Medications Medications: Current Medications Albuterol/Ipratropium (Duoneb 3 Mg/0.5 Mg (3 Ml) Ud) 3 ml INH RQ4 [facility] Last Admin: 05/01/17 13:37 Dose: 3 ml Amlodipine Besylate (Norvasc) 10 mg PO DAILY [facility] Last Admin: 05/01/17 09:41 Dose: 10 mg Aspirin (Aspirin Chewable) 81 mg PO DAILY [facility] Last Admin: 05/01/17 09:41 Dose: 81 mg Carvedilol (Coreg) 6.25 mg PO Q12 [facility] Last Admin: 05/01/17 09:41 Dose: 6.25 mg Cyanocobalamin (Vitamin B12 1000 Mcg/Ml Inj) 1,000 mcg IM DAILY [facility] Last Admin: 05/01/17 09:41 Dose: 1,000 mcg Diphenhydramine HCl (Benadryl) 25 mg PO Q8 PRN PRN Reason: Itching / Pruritus Epoetin Tom (Procrit) 10,000 unit IV TTS [facility] Last Admin: 04/30/17 10:43 Dose: 10,000 unit Guaifenesin/Dextromethorphan (Robitussin Dm) 10 ml PO Q4H PRN PRN Reason: Cough and congestion Last Admin: 05/01/17 16:50 Dose: 10 ml Heparin Sodium (Porcine) (Heparin) 5,000 units SC Q12H [facility] Last Admin: 05/01/17 09:41 Dose: 5,000 units Hydromorphone HCl (Dilaudid) 0.5 mg SC Q6H PRN PRN Reason: Pain, moderate (4-7) Piperacillin Sod/Tazobactam (Sod 3.375 gm/ Sodium Chloride) 100 mls @ 200 mls/ hr IVPB Q12H [facility] Last Admin: 05/01/17 12:26 Dose: Not Given Valproate Sodium 250 mg/ (Sodium Chloride) 102.5 mls @ 100 mls/hr IVPB Q6 [facility] Last Admin: 05/01/17 16:55 Dose: 100 mls/hr Vancomycin HCl 500 mg/ Sodium (Chloride) 100 mls @ 100 mls/hr IVPB TTS [facility] Last Admin: 04/30/17 13:28 Dose: 100 mls/hr Levetiracetam 750 mg/ Sodium (Chloride) 107.5 mls @ 420 mls/hr IVPB Q12H [facility] Last Admin: 05/01/17 14:13 Dose: Not Given Insulin Aspart (Novolog) 0 unit SC [facility] PRN Reason: Protocol Last Admin: 05/01/17 16:50 Dose: Not Given Insulin Detemir (Levemir) 8 unit SC [facility] Last Admin: 04/30/17 22:44 Dose: 8 unit Isosorbide Mononitrate (Imdur) 60 mg PO DAILY [facility] Last Admin: 05/01/17 09:41 Dose: 60 mg Pantoprazole Sodium (Protonix Ec Tab) 40 mg PO DAILY [facility] Last Admin: 05/01/17 09:41 Dose: 40 mg Rosuvastatin Calcium (Crestor) 10 mg PO [facility] Last Admin: 04/30/17 22:42 Dose: 10 mg Vitamin B Complex/Vit C/Folic Acid (Nephro-Courtney) 1 tab PO 0800 [facility] Last Admin: 05/01/17 09:44 Dose: 1 tab Physical Exam - Constitutional Appears: Cachectic, Chronically Ill - Head Exam Head Exam: NORMOCEPHALIC - Eye Exam Eye Exam: absent: Scleral icterus Additional comments: blind - ENT Exam ENT Exam: Mucous Membranes Dry - Neck Exam Neck exam: Negative for: Lymphadenopathy - Respiratory Exam Respiratory Exam: Decreased Breath Sounds - Cardiovascular Exam Cardiovascular Exam: REGULAR RHYTHM - GI/Abdominal Exam GI & Abdominal Exam: Diminished Bowel Sounds, Soft. absent: Tenderness - Rectal Exam Rectal Exam: Deferred - Extremities Exam Extremities exam: Negative for: calf tenderness, pedal pulses present Additional comments: amputee bilat - Back Exam Back exam: absent: CVA tenderness (L), CVA tenderness (R) - Neurological Exam Neurological exam: Alert, CN II-XII Intact, Oriented x3, Reflexes Normal - Psychiatric Exam Psychiatric exam: Depressed - Skin Skin Exam: Dry Results - Vital Signs Recent Vital Signs: Last Vital Signs Temp 99.4 F 05/01/17 15:17 Pulse 93 H 05/01/17 16:39 Resp 20 05/01/17 15:17 BP 128/73 05/01/17 15:17 Pulse Ox 99 05/01/17 15:17 - Labs Result Diagrams: 04/30/17 19:46 04/29/17 07:17 Labs: Laboratory Results - last 24 hr 04/30/17 04/30/17 05/01/17 19:46 21:22 06:28 WBC 12.6 H RBC 3.07 L Hgb 9.1 L Hct 28.8 L MCV 93.6 MCH 29.6 MCHC 31.6 L RDW 17.4 H Plt Count 354 MPV 9.4 Neut % (Auto) 74.8 Lymph % (Auto) 12.3 L Maries % (Auto) 11.5 H Eos % (Auto) 1.0 Baso % (Auto) 0.4 Neut # 9.4 H Lymph # 1.5 Maries # 1.4 H Eos # 0.1 Baso # 0.0 POC Glucose (mg/dL) 298 H 224 H 05/01/17 05/01/17 11:21 16:46 WBC RBC Hgb Hct MCV MCH MCHC RDW Plt Count MPV Neut % (Auto) Lymph % (Auto) Maries % (Auto) Eos % (Auto) Baso % (Auto) Neut # Lymph # Maries # Eos # Baso # POC Glucose (mg/dL) 199 H 260 H Assessment & Plan (1) CVA (cerebral vascular accident) Status: Acute (2) Diabetes mellitus with cardiac complication Status: Acute (3) Renal failure associated with renal vascular disease Status: Acute - Assessment and Plan (Free Text) Assessment: r/o cva esrd endocarditis bilat amputee blind cad pvd cont iv antibiotics
[2017-05-01] MEDS: HYDROmorphone 0.5 mg/0.5 ml ISec SC PRN (18:58)
[2017-05-01] MEDS: Insulin Detemir 100 units/ml Vial (Levemir) SC SCH (21:26)
--- NOTE | 2017-05-01 23:37 | CP.PCM.PN ---
Subjective - Date & Time of Evaluation Date of Evaluation: 05/01/17 Time of Evaluation: 21:00 - Subjective Subjective: Travel Sales Consultant Dr Michaels is requesting Neurology or GI about anticoagulation safety due to vegetations on the Valves. It is well known that this is an indication for IV Heparin followed by oral Coumadin. Close monitoring of PTT, PT and INR is a safety daily measure. A Hematology consult is needed as well to assess the safety of the Anticoagulation. GI will assess for any GI bleed that might issue. Patient is doing better and is not in immediate danger. EEG is performed and results are to follow. Patient is treated from Right L.L Pneumonia seen on CXR. There is always a Right Ventricular Clot and it is needed to treat it with efficient Anticoagulants, as long as surgical treatment is not warranted due to a dangerous potential outcome. Objective - Vital Signs/Intake and Output Vital Signs (last 24 hours): Temp Pulse Resp BP Pulse Ox 99.4 F 93 H 20 128/73 99 05/01/17 15:17 05/01/17 16:39 05/01/17 15:17 05/01/17 15:17 05/01/17 15:17 - Medications Medications: Current Medications Albuterol/Ipratropium (Duoneb 3 Mg/0.5 Mg (3 Ml) Ud) 3 ml INH RQ4 [facility] Last Admin: 05/01/17 13:37 Dose: 3 ml Amlodipine Besylate (Norvasc) 10 mg PO DAILY [facility] Last Admin: 05/01/17 09:41 Dose: 10 mg Aspirin (Aspirin Chewable) 81 mg PO DAILY [facility] Last Admin: 05/01/17 09:41 Dose: 81 mg Carvedilol (Coreg) 6.25 mg PO Q12 [facility] Last Admin: 05/01/17 21:25 Dose: 6.25 mg Cyanocobalamin (Vitamin B12 1000 Mcg/Ml Inj) 1,000 mcg IM DAILY [facility] Last Admin: 05/01/17 09:41 Dose: 1,000 mcg Diphenhydramine HCl (Benadryl) 25 mg PO Q8 PRN PRN Reason: Itching / Pruritus Epoetin Tom (Procrit) 10,000 unit IV TTS [facility] Last Admin: 04/30/17 10:43 Dose: 10,000 unit Guaifenesin/Dextromethorphan (Robitussin Dm) 10 ml PO Q4H PRN PRN Reason: Cough and congestion Last Admin: 05/01/17 16:50 Dose: 10 ml Heparin Sodium (Porcine) (Heparin) 5,000 units SC Q12H [facility] Last Admin: 05/01/17 21:25 Dose: 5,000 units Hydromorphone HCl (Dilaudid) 0.5 mg SC Q6H PRN PRN Reason: Pain, moderate (4-7) Last Admin: 05/01/17 18:58 Dose: 0.5 mg Piperacillin Sod/Tazobactam (Sod 3.375 gm/ Sodium Chloride) 100 mls @ 200 mls/ hr IVPB Q12H [facility] Last Admin: 05/01/17 21:24 Dose: 200 mls/hr Valproate Sodium 250 mg/ (Sodium Chloride) 102.5 mls @ 100 mls/hr IVPB Q6 [facility] Last Admin: 05/01/17 16:55 Dose: 100 mls/hr Vancomycin HCl 500 mg/ Sodium (Chloride) 100 mls @ 100 mls/hr IVPB TTS [facility] Last Admin: 04/30/17 13:28 Dose: 100 mls/hr Levetiracetam 750 mg/ Sodium (Chloride) 107.5 mls @ 420 mls/hr IVPB Q12H [facility] Last Admin: 05/01/17 14:13 Dose: Not Given Insulin Aspart (Novolog) 0 unit SC ACHS [facility] PRN Reason: Protocol Last Admin: 05/01/17 21:26 Dose: Not Given Insulin Detemir (Levemir) 8 unit SC [facility] Last Admin: 05/01/17 21:26 Dose: 8 unit Isosorbide Mononitrate (Imdur) 60 mg PO DAILY [facility] Last Admin: 05/01/17 09:41 Dose: 60 mg Pantoprazole Sodium (Protonix Ec Tab) 40 mg PO DAILY [facility] Last Admin: 05/01/17 09:41 Dose: 40 mg Rosuvastatin Calcium (Crestor) 10 mg PO [facility] Last Admin: 05/01/17 21:24 Dose: 10 mg Vitamin B Complex/Vit C/Folic Acid (Nephro-Courtney) 1 tab PO 0800 [facility] Last Admin: 05/01/17 09:44 Dose: 1 tab - Labs Labs: 04/30/17 19:46 08/28/17 07:17 Assessment and Plan (1) CVA (cerebral vascular accident) Status: Acute (2) Abdominal discomfort Status: Acute (3) Accelerated essential hypertension Status: Acute (4) Asthma Status: Acute (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
[2017-05-02] MEDS: Albuterol-Ipratrop 3 mg / 0.5 (3 ml) UD INH SCH ×5 (00:09→19:31)
[2017-05-02] MEDS: Valproate 250 MG in Sodium Chloride 0.9% 100 ML IVPB SCH ×3 (00:14→14:18)
[2017-05-02] MEDS: HYDROmorphone 0.5 mg/0.5 ml ISec SC PRN ×4 (01:13→20:55)
--- NOTE | 2017-05-02 07:06 | EEG ---
The record was obtained to rule out seizures, rule out encephalopathy. The record was obtained while the patient was awake and drowsy. The record was symmetrically equal on both sides with a velocity of 6 to 7 cycles per second. The waves are fairly formed and fairly organized with no specific distribution, moderate in amplitude, reactive to eye opening by attenuation. There were no abnormal discharges. No spike, no poly spikes, no sharp wave, no focal slowing, no paroxysmal discharges. There were periods of drowsiness during which attenuation and slowing of the record were seen and theta waves were seen. There were no periods of sleep. The record showed eye movement artifacts, electrode artifacts, and muscle movement artifacts. The photic stimulation was performed and did not produce any changes. Hyperventilation was omitted. There were eye movement artifacts, electrode artifacts and muscle movement artifacts. In summary, this is an abnormal awake and drowsy EEG significant for generalized slowing. This might be consistent with encephalopathy. Clinical correlation is recommended. Nikhil Wu MD [facility]
[2017-05-02] MEDS: (Novolog) Insulin Aspart, Recombinant 100 u/ml 10 ml vial SC SCH ×4 (07:41→21:57)
[2017-05-02] MEDS: Multivitamin Vitamin B Complex (Nephro-Vite) Tab PO SCH (08:12)
[2017-05-02] MEDS: Pantoprazole 40 mg EC Tab PO SCH (09:00)
[2017-05-02] MEDS: guaiFENesin DM 200 mg-20 mg/10 ml UD PO PRN (09:00)
--- NOTE | 2017-05-02 11:01 | CP.PCM.PN ---
Subjective - Date & Time of Evaluation Date of Evaluation: 05/02/17 Time of Evaluation: 11:25 - Subjective Subjective: Currently on dialysis Sedated Objective - Vital Signs/Intake and Output Vital Signs (last 24 hours): Temp Pulse Resp BP Pulse Ox 98.1 F 74 18 147/76 100 05/02/17 07:45 05/02/17 07:45 05/02/17 07:45 05/02/17 07:45 05/02/17 07:45 Intake and Output: 05/02/17 05/02/17 06:59 18:59 Intake Total 350 Balance 350 - Medications Medications: Current Medications Albuterol/Ipratropium (Duoneb 3 Mg/0.5 Mg (3 Ml) Ud) 3 ml INH RQ4 [facility] Last Admin: 05/02/17 07:44 Dose: 3 ml Amlodipine Besylate (Norvasc) 10 mg PO DAILY [facility] Last Admin: 05/02/17 10:54 Dose: Not Given Aspirin (Aspirin Chewable) 81 mg PO DAILY [facility] Last Admin: 05/02/17 09:00 Dose: 81 mg Carvedilol (Coreg) 6.25 mg PO Q12 [facility] Last Admin: 05/02/17 10:53 Dose: Not Given Cyanocobalamin (Vitamin B12 1000 Mcg/Ml Inj) 1,000 mcg IM DAILY [facility] Last Admin: 05/02/17 09:00 Dose: 1,000 mcg Diphenhydramine HCl (Benadryl) 25 mg PO Q8 PRN PRN Reason: Itching / Pruritus Epoetin Tom (Procrit) 10,000 unit IV TTS [facility] Last Admin: 04/30/17 10:43 Dose: 10,000 unit Guaifenesin/Dextromethorphan (Robitussin Dm) 10 ml PO Q4H PRN PRN Reason: Cough and congestion Last Admin: 05/02/17 09:00 Dose: 10 ml Heparin Sodium (Porcine) (Heparin) 5,000 units SC Q12H [facility] Last Admin: 05/02/17 09:00 Dose: 5,000 units Hydromorphone HCl (Dilaudid) 0.5 mg SC Q6H PRN PRN Reason: Pain, moderate (4-7) Last Admin: 05/02/17 09:08 Dose: 0.5 mg Piperacillin Sod/Tazobactam (Sod 3.375 gm/ Sodium Chloride) 100 mls @ 200 mls/ hr IVPB Q12H [facility] Last Admin: 05/01/17 21:24 Dose: 200 mls/hr Valproate Sodium 250 mg/ (Sodium Chloride) 102.5 mls @ 100 mls/hr IVPB Q6 [facility] Last Admin: 05/02/17 05:05 Dose: 100 mls/hr Vancomycin HCl 500 mg/ Sodium (Chloride) 100 mls @ 100 mls/hr IVPB TTS [facility] Last Admin: 04/30/17 13:28 Dose: 100 mls/hr Levetiracetam 750 mg/ Sodium (Chloride) 107.5 mls @ 420 mls/hr IVPB Q12H [facility] Last Admin: 05/02/17 01:16 Dose: 420 mls/hr Insulin Aspart (Novolog) 0 unit SC ACHS [facility] PRN Reason: Protocol Last Admin: 05/02/17 07:41 Dose: Not Given Insulin Detemir (Levemir) 8 unit SC [facility] Last Admin: 05/01/17 21:26 Dose: 8 unit Isosorbide Mononitrate (Imdur) 60 mg PO DAILY [facility] Last Admin: 05/02/17 10:54 Dose: Not Given Pantoprazole Sodium (Protonix Ec Tab) 40 mg PO DAILY [facility] Last Admin: 05/02/17 09:00 Dose: 40 mg Rosuvastatin Calcium (Crestor) 10 mg PO HS [facility] Last Admin: 05/01/17 21:24 Dose: 10 mg Vitamin B Complex/Vit C/Folic Acid (Nephro-Courtney) 1 tab PO 0800 [facility] Last Admin: 05/02/17 08:12 Dose: 1 tab - Labs Labs: 04/30/17 19:46 04/29/17 07:17 - Respiratory Exam Additional comments: Lungs clear - Cardiovascular Exam Cardiovascular Exam: REGULAR RHYTHM - Extremities Exam Additional comments: B/L BKA Assessment and Plan - Assessment and Plan (Free Text) Assessment: ESRD HTN Rt atria vegetation/thrombus IDDM Plan: Pt is stable on dialysis Contonue dialysis per schedule
[2017-05-02] MEDS: Epoetin Alfa 10,000 unit/ml Dialysis IV SCH (12:37)
--- NOTE | 2017-05-02 12:38 | CP.PCM.PN ---
Subjective - Date & Time of Evaluation Date of Evaluation: 05/02/17 Time of Evaluation: 12:35 - Subjective Subjective: No new complaints HD today Objective - Vital Signs/Intake and Output Vital Signs (last 24 hours): Temp Pulse Resp BP Pulse Ox 98.4 F 84 16 167/69 H 100 05/02/17 09:30 05/02/17 12:00 05/02/17 12:00 05/02/17 12:00 05/02/17 12:00 Intake and Output: 05/02/17 05/02/17 06:59 18:59 Intake Total 350 Balance 350 - Medications Medications: Current Medications Albuterol/Ipratropium (Duoneb 3 Mg/0.5 Mg (3 Ml) Ud) 3 ml INH RQ6 [facility] Amlodipine Besylate (Norvasc) 10 mg PO DAILY [facility] Last Admin: 05/02/17 10:54 Dose: Not Given Aspirin (Aspirin Chewable) 81 mg PO DAILY [facility] Last Admin: 05/02/17 09:00 Dose: 81 mg Carvedilol (Coreg) 6.25 mg PO Q12 [facility] Last Admin: 05/02/17 10:53 Dose: Not Given Cyanocobalamin (Vitamin B12 1000 Mcg/Ml Inj) 1,000 mcg IM DAILY [facility] Last Admin: 05/02/17 09:00 Dose: 1,000 mcg Diphenhydramine HCl (Benadryl) 25 mg PO Q8 PRN PRN Reason: Itching / Pruritus Epoetin Tom (Procrit) 10,000 unit IV TTS [facility] Last Admin: 04/30/17 10:43 Dose: 10,000 unit Guaifenesin/Dextromethorphan (Robitussin Dm) 10 ml PO Q4H PRN PRN Reason: Cough and congestion Last Admin: 05/02/17 09:00 Dose: 10 ml Heparin Sodium (Porcine) (Heparin) 5,000 units SC Q12H [facility] Last Admin: 05/02/17 09:00 Dose: 5,000 units Hydromorphone HCl (Dilaudid) 0.5 mg SC Q6H PRN PRN Reason: Pain, moderate (4-7) Last Admin: 05/02/17 09:08 Dose: 0.5 mg Piperacillin Sod/Tazobactam (Sod 3.375 gm/ Sodium Chloride) 100 mls @ 200 mls/ hr IVPB Q12H [facility] Last Admin: 05/01/17 21:24 Dose: 200 mls/hr Valproate Sodium 250 mg/ (Sodium Chloride) 102.5 mls @ 100 mls/hr IVPB Q6 [facility] Last Admin: 05/02/17 05:05 Dose: 100 mls/hr Vancomycin HCl 500 mg/ Sodium (Chloride) 100 mls @ 100 mls/hr IVPB TTS [facility] Last Admin: 04/30/17 13:28 Dose: 100 mls/hr Levetiracetam 750 mg/ Sodium (Chloride) 107.5 mls @ 420 mls/hr IVPB Q12H [facility] Last Admin: 05/02/17 01:16 Dose: 420 mls/hr Insulin Aspart (Novolog) 0 unit SC ACHS [facility] PRN Reason: Protocol Last Admin: 05/02/17 07:41 Dose: Not Given Insulin Detemir (Levemir) 8 unit SC [facility] Last Admin: 05/01/17 21:26 Dose: 8 unit Isosorbide Mononitrate (Imdur) 60 mg PO DAILY [facility] Last Admin: 05/02/17 10:54 Dose: Not Given Pantoprazole Sodium (Protonix Ec Tab) 40 mg PO DAILY [facility] Last Admin: 05/02/17 09:00 Dose: 40 mg Rosuvastatin Calcium (Crestor) 10 mg PO [facility] Last Admin: 05/01/17 21:24 Dose: 10 mg Vitamin B Complex/Vit C/Folic Acid (Nephro-Courtney) 1 tab PO 0800 [facility] Last Admin: 05/02/17 08:12 Dose: 1 tab - Labs Labs: 04/30/17 19:46 04/29/17 07:17 - Constitutional Appears: Non-toxic, No Acute Distress - Head Exam Head Exam: ATRAUMATIC, NORMAL INSPECTION, NORMOCEPHALIC - Eye Exam Eye Exam: absent: Normal appearance - ENT Exam ENT Exam: Mucous Membranes Moist - Neck Exam Neck Exam: Full ROM, Normal Inspection - Respiratory Exam Respiratory Exam: NORMAL BREATHING PATTERN - Cardiovascular Exam Cardiovascular Exam: +S1, +S2, Murmur (chronic LUSB) - Extremities Exam Additional comments: B/L BKA - Neurological Exam Neurological Exam: Alert, Oriented x3 Assessment and Plan - Assessment and Plan (Free Text) Assessment: 36 year old man with RV thrombus which is now improved with anticoagulation. Repeat echo 04/27/17: directly viewed by me: Normal LVEF, mod LVH, mod-sev pulm HTN, Grade 2 diastolic dysfunction Mild AI, MR,TR No longer seen is the R. atrial mass which was probable attached to R. HD catheter. More likely thrombus although infection was a possibility. >Patient has following indications for anticoagulation 1. Recent large mass attached to HD catheter in RA (likely thrombus) cannot exclude vegetation 2. Hx of aflutter/fib paroxysmal > Neuro input agrees with AC > Need to eval GI bleed risk if ok then I suggest eliquis 2.5 BID ESRD on HD Health care associated PNA on ABX wide a wide spectrum of coverage Laryngeal injury due to intubation at [facility] HTN is chronic and stable on current medications DM - Brittle on insulin PVD s/p b/l BKA CAD s/p CABG and PCI now non revascularizable, ranexa and nitrates, high dose statin
[2017-05-02] MEDS: Piperacillin/Tazobact 3.375 GM in Sodium Chloride 100 ML IVPB SCH (13:28)
--- NOTE | 2017-05-02 17:43 | CP.PCM.PN ---
Subjective - Date & Time of Evaluation Date of Evaluation: 05/02/17 Time of Evaluation: 17:40 - Subjective Subjective: pt has fever 103 cough all the time in discomfort bs 240 Objective - Vital Signs/Intake and Output Vital Signs (last 24 hours): Temp Pulse Resp BP Pulse Ox 103 F H 120 H 20 141/64 95 05/02/17 15:43 05/02/17 15:43 05/02/17 15:43 05/02/17 15:43 05/02/17 15:43 Intake and Output: 05/02/17 05/02/17 06:59 18:59 Intake Total 350 970 Balance 350 970 - Medications Medications: Current Medications Acetaminophen (Tylenol 325mg Tab) 650 mg PO Q6 PRN PRN Reason: Fever >100.4 F Albuterol/Ipratropium (Duoneb 3 Mg/0.5 Mg (3 Ml) Ud) 3 ml INH RQ6 [facility] Last Admin: 05/02/17 13:36 Dose: 3 ml Amlodipine Besylate (Norvasc) 10 mg PO DAILY [facility] Last Admin: 05/02/17 13:52 Dose: 10 mg Aspirin (Aspirin Chewable) 81 mg PO DAILY [facility] Last Admin: 05/02/17 09:00 Dose: 81 mg Carvedilol (Coreg) 6.25 mg PO Q12 [facility] Last Admin: 05/02/17 10:53 Dose: Not Given Cyanocobalamin (Vitamin B12 1000 Mcg/Ml Inj) 1,000 mcg IM DAILY [facility] Last Admin: 05/02/17 09:00 Dose: 1,000 mcg Diphenhydramine HCl (Benadryl) 25 mg PO Q8 PRN PRN Reason: Itching / Pruritus Epoetin Tom (Procrit) 10,000 unit IV TTS [facility] Last Admin: 05/02/17 12:37 Dose: 10,000 unit Guaifenesin/Dextromethorphan (Robitussin Dm) 10 ml PO Q4H PRN PRN Reason: Cough and congestion Last Admin: 05/02/17 09:00 Dose: 10 ml Heparin Sodium (Porcine) (Heparin) 5,000 units SC Q12H [facility] Last Admin: 05/02/17 09:00 Dose: 5,000 units Hydromorphone HCl (Dilaudid) 0.5 mg SC Q6H PRN PRN Reason: Pain, moderate (4-7) Last Admin: 05/02/17 14:51 Dose: 0.5 mg Vancomycin HCl 500 mg/ Sodium (Chloride) 100 mls @ 100 mls/hr IVPB TTS [facility] Last Admin: 05/02/17 14:15 Dose: 100 mls/hr Meropenem 500 mg/ Sodium (Chloride) 100 mls @ 200 mls/hr IVPB Q12H [facility] Insulin Aspart (Novolog) 0 unit SC ACHS [facility] PRN Reason: Protocol Last Admin: 05/02/17 17:35 Dose: 2 unit Insulin Detemir (Levemir) 8 unit SC HS [facility] Last Admin: 05/01/17 21:26 Dose: 8 unit Isosorbide Mononitrate (Imdur) 60 mg PO DAILY [facility] Last Admin: 05/02/17 13:51 Dose: 60 mg Levetiracetam (Keppra) 750 mg PO BID [facility] Pantoprazole Sodium (Protonix Ec Tab) 40 mg PO DAILY [facility] Last Admin: 05/02/17 09:00 Dose: 40 mg Rosuvastatin Calcium (Crestor) 10 mg PO HS [facility] Last Admin: 05/01/17 21:24 Dose: 10 mg Valproate Sodium (Depakene Oral Soln) 250 mg PO QID [facility] Vitamin B Complex/Vit C/Folic Acid (Nephro-Courtney) 1 tab PO 0800 [facility] Last Admin: 05/02/17 08:12 Dose: 1 tab - Labs Labs: 04/30/17 19:46 04/29/17 07:17 - Constitutional Appears: In Acute Distress - Head Exam Head Exam: ATRAUMATIC - Eye Exam Eye Exam: Conjunctival injection - ENT Exam ENT Exam: Mucous Membranes Dry - Neck Exam Neck Exam: Full ROM - Respiratory Exam Respiratory Exam: Rales - GI/Abdominal Exam GI & Abdominal Exam: Normal Bowel Sounds - Rectal Exam Rectal Exam: NORMAL INSPECTION - Back Exam Back Exam: CVA tenderness (L) - Neurological Exam Neurological Exam: Alert, Oriented x3 - Psychiatric Exam Psychiatric exam: Depressed Assessment and Plan - Assessment and Plan (Free Text) Assessment: ac pnumonia persistant cough and fever seizer disorder gastritis hx of gi bleeding hx of arrythmia Plan: will not start on eliquis will do stool ocult blood will cont as per orders
[2017-05-02] MEDS: levETIRAcetam 100 mg/ml (5ml) Oral Syringe PO SCH (17:59)
[2017-05-02] MEDS: Meropenem 500 MG in Sodium Chloride 0.9% 100 ML IVPB SCH (17:59)
[2017-05-02] MEDS: Valproic Acid 250 mg/5 ml UD Cup PO SCH ×2 (17:59→22:09)
--- NOTE | 2017-05-02 19:39 | CP.PCM.PN ---
Subjective - Date & Time of Evaluation Date of Evaluation: 05/02/17 Time of Evaluation: 08:00 - Subjective Subjective: FEVER PERSISTS MERREM ADDED AWAIT CULTURES Objective - Vital Signs/Intake and Output Vital Signs (last 24 hours): Temp Pulse Resp BP Pulse Ox 103 F H 120 H 20 141/64 95 05/02/17 15:43 05/02/17 15:43 05/02/17 15:43 05/02/17 15:43 05/02/17 15:43 Intake and Output: 05/02/17 05/03/17 18:59 06:59 Intake Total 970 Balance 970 - Medications Medications: Current Medications Acetaminophen (Tylenol 325mg Tab) 650 mg PO Q6 PRN PRN Reason: Fever >100.4 F Albuterol/Ipratropium (Duoneb 3 Mg/0.5 Mg (3 Ml) Ud) 3 ml INH RQ6 [facility] Last Admin: 05/02/17 19:31 Dose: 3 ml Amlodipine Besylate (Norvasc) 10 mg PO DAILY [facility] Last Admin: 05/02/17 13:52 Dose: 10 mg Aspirin (Aspirin Chewable) 81 mg PO DAILY [facility] Last Admin: 05/02/17 09:00 Dose: 81 mg Carvedilol (Coreg) 6.25 mg PO Q12 [facility] Last Admin: 05/02/17 10:53 Dose: Not Given Cyanocobalamin (Vitamin B12 1000 Mcg/Ml Inj) 1,000 mcg IM DAILY [facility] Last Admin: 05/02/17 09:00 Dose: 1,000 mcg Diphenhydramine HCl (Benadryl) 25 mg PO Q8 PRN PRN Reason: Itching / Pruritus Epoetin Tom (Procrit) 10,000 unit IV TTS [facility] Last Admin: 05/02/17 12:37 Dose: 10,000 unit Guaifenesin/Dextromethorphan (Robitussin Dm) 10 ml PO Q4H PRN PRN Reason: Cough and congestion Last Admin: 05/02/17 09:00 Dose: 10 ml Heparin Sodium (Porcine) (Heparin) 5,000 units SC Q12H [facility] Last Admin: 05/02/17 09:00 Dose: 5,000 units Hydromorphone HCl (Dilaudid) 0.5 mg SC Q6H PRN PRN Reason: Pain, moderate (4-7) Last Admin: 05/02/17 14:51 Dose: 0.5 mg Vancomycin HCl 500 mg/ Sodium (Chloride) 100 mls @ 100 mls/hr IVPB TTS [facility] Last Admin: 05/02/17 14:15 Dose: 100 mls/hr Meropenem 500 mg/ Sodium (Chloride) 100 mls @ 200 mls/hr IVPB Q12H [facility] Last Admin: 05/02/17 17:59 Dose: 200 mls/hr Insulin Aspart (Novolog) 0 unit SC ACHS [facility] PRN Reason: Protocol Last Admin: 05/02/17 17:35 Dose: 2 unit Insulin Detemir (Levemir) 8 unit SC HS [facility] Last Admin: 05/01/17 21:26 Dose: 8 unit Isosorbide Mononitrate (Imdur) 60 mg PO DAILY [facility] Last Admin: 05/02/17 13:51 Dose: 60 mg Levetiracetam (Keppra) 750 mg PO BID [facility] Last Admin: 05/02/17 17:59 Dose: 750 mg Pantoprazole Sodium (Protonix Ec Tab) 40 mg PO DAILY [facility] Last Admin: 05/02/17 09:00 Dose: 40 mg Rosuvastatin Calcium (Crestor) 10 mg PO HS [facility] Last Admin: 05/01/17 21:24 Dose: 10 mg Valproate Sodium (Depakene Oral Soln) 250 mg PO QID [facility] Last Admin: 05/02/17 17:59 Dose: 250 mg Vitamin B Complex/Vit C/Folic Acid (Nephro-Courtney) 1 tab PO 0800 [facility] Last Admin: 05/02/17 08:12 Dose: 1 tab - Labs Labs: 04/30/17 19:46 04/29/17 07:17 - Constitutional Appears: Confused, Cachectic, Chronically Ill - Head Exam Head Exam: NORMOCEPHALIC - ENT Exam ENT Exam: Mucous Membranes Dry - Neck Exam Neck Exam: absent: Lymphadenopathy - Respiratory Exam Respiratory Exam: Decreased Breath Sounds, Rhonchi - Cardiovascular Exam Cardiovascular Exam: REGULAR RHYTHM - GI/Abdominal Exam GI & Abdominal Exam: Distended Assessment and Plan (1) CVA (cerebral vascular accident) Status: Acute (2) Diabetes mellitus with cardiac complication Status: Acute (3) Renal failure associated with renal vascular disease Status: Acute
[2017-05-02 19:51] LABS: IRON 66 ug/dL (49-181)
--- NOTE | 2017-05-02 20:54 | CP.PCM.PN ---
Subjective - Date & Time of Evaluation Date of Evaluation: 05/02/17 Time of Evaluation: 20:20 - Subjective Subjective: Patient is suffering from low Vitamin D at the level of 25. A Vitamin D replacement is given and Oscal. ID Dr Lind is adding a new Antibiotic for his infection. Dr Escobar of Cardiology is adding Heparin Subcutaneous. Hematology consult might be needed to avoid complication of anticoagulants. He is more awake, less lethargic. His EEG is slow and significant for Encephalopathy. He is more interactive. He receives dialysis regularly for his ESRD on T ,T,S. Temperature was 103, B.P is showing a high Systolic Pressure in some readings. He is interactive and able to ask questions about his progress and answer about his condition. Objective - Vital Signs/Intake and Output Vital Signs (last 24 hours): Temp Pulse Resp BP Pulse Ox 103 F H 120 H 20 141/64 95 05/02/17 15:43 05/02/17 15:43 05/02/17 15:43 05/02/17 15:43 05/02/17 15:43 Intake and Output: 05/02/17 05/03/17 18:59 06:59 Intake Total 970 Balance 970 - Medications Medications: Current Medications Acetaminophen (Tylenol 325mg Tab) 650 mg PO Q6 PRN PRN Reason: Fever >100.4 F Albuterol/Ipratropium (Duoneb 3 Mg/0.5 Mg (3 Ml) Ud) 3 ml INH RQ6 [facility] Last Admin: 05/02/17 19:31 Dose: 3 ml Amlodipine Besylate (Norvasc) 10 mg PO DAILY [facility] Last Admin: 05/02/17 13:52 Dose: 10 mg Aspirin (Aspirin Chewable) 81 mg PO DAILY [facility] Last Admin: 05/02/17 09:00 Dose: 81 mg Calcium Carbonate (Oscal) 500 mg PO BID [facility] Carvedilol (Coreg) 6.25 mg PO Q12 [facility] Last Admin: 05/02/17 10:53 Dose: Not Given Cyanocobalamin (Vitamin B12 1000 Mcg/Ml Inj) 1,000 mcg IM DAILY [facility] Last Admin: 05/02/17 09:00 Dose: 1,000 mcg Diphenhydramine HCl (Benadryl) 25 mg PO Q8 PRN PRN Reason: Itching / Pruritus Epoetin Tom (Procrit) 10,000 unit IV TTS [facility] Last Admin: 05/02/17 12:37 Dose: 10,000 unit Ergocalciferol (Drisdol 50,000 Intl Units Cap) 1 cap PO Q7D [facility] Guaifenesin/Dextromethorphan (Robitussin Dm) 10 ml PO Q4H PRN PRN Reason: Cough and congestion Last Admin: 05/02/17 09:00 Dose: 10 ml Heparin Sodium (Porcine) (Heparin) 5,000 units SC Q12H [facility] Last Admin: 05/02/17 09:00 Dose: 5,000 units Hydromorphone HCl (Dilaudid) 0.5 mg SC Q6H PRN PRN Reason: Pain, moderate (4-7) Last Admin: 05/02/17 14:51 Dose: 0.5 mg Vancomycin HCl 500 mg/ Sodium (Chloride) 100 mls @ 100 mls/hr IVPB TTS [facility] Last Admin: 05/02/17 14:15 Dose: 100 mls/hr Meropenem 500 mg/ Sodium (Chloride) 100 mls @ 200 mls/hr IVPB Q12H [facility] Last Admin: 05/02/17 17:59 Dose: 200 mls/hr Insulin Aspart (Novolog) 0 unit SC ACHS [facility] PRN Reason: Protocol Last Admin: 05/02/17 17:35 Dose: 2 unit Insulin Detemir (Levemir) 8 unit SC HS [facility] Last Admin: 05/01/17 21:26 Dose: 8 unit Isosorbide Mononitrate (Imdur) 60 mg PO DAILY [facility] Last Admin: 05/02/17 13:51 Dose: 60 mg Levetiracetam (Keppra) 750 mg PO BID [facility] Last Admin: 05/02/17 17:59 Dose: 750 mg Pantoprazole Sodium (Protonix Ec Tab) 40 mg PO DAILY [facility] Last Admin: 05/02/17 09:00 Dose: 40 mg Rosuvastatin Calcium (Crestor) 10 mg PO HS [facility] Last Admin: 05/01/17 21:24 Dose: 10 mg Valproate Sodium (Depakene Oral Soln) 250 mg PO QID [facility] Last Admin: 05/02/17 17:59 Dose: 250 mg Vitamin B Complex/Vit C/Folic Acid (Nephro-Courtney) 1 tab PO 0800 [facility] Last Admin: 05/02/17 08:12 Dose: 1 tab - Labs Labs: 04/30/17 19:46 04/29/17 07:17 Assessment and Plan (1) CVA (cerebral vascular accident) Status: Acute (2) Abdominal discomfort Status: Acute (3) Accelerated essential hypertension Status: Acute (4) Asthma Status: Acute (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
[2017-05-02] MEDS: Insulin Detemir 100 units/ml Vial (Levemir) SC SCH (22:09)
[2017-05-03] MEDS: Albuterol-Ipratrop 3 mg / 0.5 (3 ml) UD INH SCH ×4 (01:04→20:15)
[2017-05-03] MEDS: HYDROmorphone 0.5 mg/0.5 ml ISec SC PRN ×3 (06:10→19:07)
[2017-05-03] MEDS: Meropenem 500 MG in Sodium Chloride 0.9% 100 ML IVPB SCH ×2 (06:11→17:27)
[2017-05-03] MEDS: (Novolog) Insulin Aspart, Recombinant 100 u/ml 10 ml vial SC SCH ×4 (08:46→21:54)
[2017-05-03] MEDS: Multivitamin Vitamin B Complex (Nephro-Vite) Tab PO SCH (08:57)
[2017-05-03] MEDS ORDERED: Ergocalciferol 50,000 Intl Units Cap PO SCH (09:00)
[2017-05-03] MEDS: levETIRAcetam 100 mg/ml (5ml) Oral Syringe PO SCH ×2 (09:45→17:41)
[2017-05-03] MEDS: Pantoprazole 40 mg EC Tab PO SCH (09:45)
[2017-05-03] MEDS: Valproic Acid 250 mg/5 ml UD Cup PO SCH ×4 (09:46→21:53)
--- NOTE | 2017-05-03 10:11 | CP.PCM.PN ---
Subjective - Date & Time of Evaluation Date of Evaluation: 05/03/17 Time of Evaluation: 10:08 - Subjective Subjective: pt oob in [place] feels cold coughing a lot last night temp 103 now 98 Objective - Vital Signs/Intake and Output Vital Signs (last 24 hours): Temp Pulse Resp BP Pulse Ox 98.5 F 96 H 17 153/69 H 96 05/03/17 07:40 05/03/17 07:40 05/03/17 07:40 05/03/17 07:40 05/03/17 07:40 - Medications Medications: Current Medications Acetaminophen (Tylenol 325mg Tab) 650 mg PO Q6 PRN PRN Reason: Fever >100.4 F Albuterol/Ipratropium (Duoneb 3 Mg/0.5 Mg (3 Ml) Ud) 3 ml INH RQ6 [facility] Last Admin: 05/03/17 07:35 Dose: 3 ml Amlodipine Besylate (Norvasc) 10 mg PO DAILY [facility] Last Admin: 05/03/17 09:47 Dose: 10 mg Aspirin (Aspirin Chewable) 81 mg PO DAILY [facility] Last Admin: 05/03/17 09:46 Dose: 81 mg Calcium Carbonate (Oscal) 500 mg PO BID [facility] Last Admin: 05/03/17 09:46 Dose: 500 mg Carvedilol (Coreg) 6.25 mg PO Q12 [facility] Last Admin: 05/03/17 09:45 Dose: 6.25 mg Cyanocobalamin (Vitamin B12 1000 Mcg/Ml Inj) 1,000 mcg IM DAILY [facility] Last Admin: 05/03/17 09:46 Dose: 1,000 mcg Diphenhydramine HCl (Benadryl) 25 mg PO Q8 PRN PRN Reason: Itching / Pruritus Epoetin Tom (Procrit) 10,000 unit IV TTS [facility] Last Admin: 05/02/17 12:37 Dose: 10,000 unit Ergocalciferol (Drisdol 50,000 Intl Units Cap) 1 cap PO Q7D [facility] Last Admin: 05/03/17 09:45 Dose: 1 cap Guaifenesin/Dextromethorphan (Robitussin Dm) 10 ml PO Q4H PRN PRN Reason: Cough and congestion Last Admin: 05/02/17 09:00 Dose: 10 ml Heparin Sodium (Porcine) (Heparin) 5,000 units SC Q12H [facility] Last Admin: 05/03/17 09:46 Dose: 5,000 units Hydromorphone HCl (Dilaudid) 0.5 mg SC Q6H PRN PRN Reason: Pain, moderate (4-7) Last Admin: 05/03/17 06:10 Dose: 0.5 mg Vancomycin HCl 500 mg/ Sodium (Chloride) 100 mls @ 100 mls/hr IVPB TTS [facility] Last Admin: 05/02/17 14:15 Dose: 100 mls/hr Meropenem 500 mg/ Sodium (Chloride) 100 mls @ 200 mls/hr IVPB Q12H [facility] Last Admin: 05/03/17 06:11 Dose: 200 mls/hr Insulin Aspart (Novolog) 0 unit SC ACHS [facility] PRN Reason: Protocol Last Admin: 05/03/17 08:46 Dose: 1 unit Insulin Detemir (Levemir) 8 unit SC HS [facility] Last Admin: 05/02/17 22:09 Dose: 8 unit Isosorbide Mononitrate (Imdur) 60 mg PO DAILY [facility] Last Admin: 05/03/17 09:46 Dose: 60 mg Levetiracetam (Keppra) 750 mg PO BID [facility] Last Admin: 05/03/17 09:45 Dose: 750 mg Pantoprazole Sodium (Protonix Ec Tab) 40 mg PO DAILY [facility] Last Admin: 05/03/17 09:45 Dose: 40 mg Rosuvastatin Calcium (Crestor) 10 mg PO HS [facility] Last Admin: 05/02/17 22:09 Dose: 10 mg Valproate Sodium (Depakene Oral Soln) 250 mg PO QID [facility] Last Admin: 05/02/17 22:09 Dose: 250 mg Vitamin B Complex/Vit C/Folic Acid (Nephro-Courtney) 1 tab PO 0800 [facility] Last Admin: 05/03/17 08:57 Dose: 1 tab - Labs Labs: 04/30/17 19:46 04/29/17 07:17 - Constitutional Appears: No Acute Distress - Head Exam Head Exam: ATRAUMATIC - Eye Exam Eye Exam: Conjunctival injection - ENT Exam ENT Exam: Mucous Membranes Dry - Neck Exam Neck Exam: Full ROM - Respiratory Exam Respiratory Exam: Decreased Breath Sounds, Rales - Cardiovascular Exam Cardiovascular Exam: REGULAR RHYTHM - GI/Abdominal Exam GI & Abdominal Exam: Normal Bowel Sounds - Rectal Exam Rectal Exam: NORMAL INSPECTION - Back Exam Back Exam: CVA tenderness (L) - Neurological Exam Neurological Exam: Alert, Awake, Oriented x3 - Psychiatric Exam Psychiatric exam: Depressed - Skin Skin Exam: Pallor Assessment and Plan - Assessment and Plan (Free Text) Assessment: ac pnumonia copd dm esrf possible endocarditis Plan: cont as per orders
--- NOTE | 2017-05-03 10:55 | CP.PCM.PN ---
Subjective - Date & Time of Evaluation Date of Evaluation: 05/03/17 Time of Evaluation: 09:30 - Subjective Subjective: Alert No SOB Objective - Vital Signs/Intake and Output Vital Signs (last 24 hours): Temp Pulse Resp BP Pulse Ox 98.5 F 96 H 17 153/69 H 96 05/03/17 07:40 05/03/17 07:40 05/03/17 07:40 05/03/17 07:40 05/03/17 07:40 - Medications Medications: Current Medications Acetaminophen (Tylenol 325mg Tab) 650 mg PO Q6 PRN PRN Reason: Fever >100.4 F Albuterol/Ipratropium (Duoneb 3 Mg/0.5 Mg (3 Ml) Ud) 3 ml INH RQ6 [facility] Last Admin: 05/03/17 07:35 Dose: 3 ml Amlodipine Besylate (Norvasc) 10 mg PO DAILY [facility] Last Admin: 05/03/17 09:47 Dose: 10 mg Aspirin (Aspirin Chewable) 81 mg PO DAILY [facility] Last Admin: 05/03/17 09:46 Dose: 81 mg Calcium Carbonate (Oscal) 500 mg PO BID [facility] Last Admin: 05/03/17 09:46 Dose: 500 mg Carvedilol (Coreg) 6.25 mg PO Q12 [facility] Last Admin: 05/03/17 09:45 Dose: 6.25 mg Cyanocobalamin (Vitamin B12 1000 Mcg/Ml Inj) 1,000 mcg IM DAILY [facility] Last Admin: 05/03/17 09:46 Dose: 1,000 mcg Diphenhydramine HCl (Benadryl) 25 mg PO Q8 PRN PRN Reason: Itching / Pruritus Epoetin Tom (Procrit) 10,000 unit IV TTS [facility] Last Admin: 05/02/17 12:37 Dose: 10,000 unit Ergocalciferol (Drisdol 50,000 Intl Units Cap) 1 cap PO Q7D [facility] Last Admin: 05/03/17 09:45 Dose: 1 cap Guaifenesin/Dextromethorphan (Robitussin Dm) 10 ml PO Q4H PRN PRN Reason: Cough and congestion Last Admin: 05/02/17 09:00 Dose: 10 ml Heparin Sodium (Porcine) (Heparin) 5,000 units SC Q12H [facility] Last Admin: 05/03/17 09:46 Dose: 5,000 units Hydromorphone HCl (Dilaudid) 0.5 mg SC Q6H PRN PRN Reason: Pain, moderate (4-7) Last Admin: 05/03/17 06:10 Dose: 0.5 mg Vancomycin HCl 500 mg/ Sodium (Chloride) 100 mls @ 100 mls/hr IVPB TTS [facility] Last Admin: 05/02/17 14:15 Dose: 100 mls/hr Meropenem 500 mg/ Sodium (Chloride) 100 mls @ 200 mls/hr IVPB Q12H [facility] Last Admin: 05/03/17 06:11 Dose: 200 mls/hr Insulin Aspart (Novolog) 0 unit SC ACHS [facility] PRN Reason: Protocol Last Admin: 05/03/17 08:46 Dose: 1 unit Insulin Detemir (Levemir) 8 unit SC HS [facility] Last Admin: 05/02/17 22:09 Dose: 8 unit Isosorbide Mononitrate (Imdur) 60 mg PO DAILY [facility] Last Admin: 05/03/17 09:46 Dose: 60 mg Levetiracetam (Keppra) 750 mg PO BID [facility] Last Admin: 05/03/17 09:45 Dose: 750 mg Pantoprazole Sodium (Protonix Ec Tab) 40 mg PO DAILY [facility] Last Admin: 05/03/17 09:45 Dose: 40 mg Rosuvastatin Calcium (Crestor) 10 mg PO HS [facility] Last Admin: 05/02/17 22:09 Dose: 10 mg Valproate Sodium (Depakene Oral Soln) 250 mg PO QID [facility] Last Admin: 05/02/17 22:09 Dose: 250 mg Vitamin B Complex/Vit C/Folic Acid (Nephro-Courtney) 1 tab PO 0800 [facility] Last Admin: 05/03/17 08:57 Dose: 1 tab - Labs Labs: 04/30/17 19:46 04/29/17 07:17 - Respiratory Exam Additional comments: Lungs clear - Cardiovascular Exam Cardiovascular Exam: REGULAR RHYTHM - Extremities Exam Additional comments: B/L BKA Assessment and Plan - Assessment and Plan (Free Text) Assessment: ESRD on HD HTN Anemis IDDM Plan: Continue HD per schedule Labs with dialysis
[2017-05-03] MEDS: guaiFENesin DM 200 mg-20 mg/10 ml UD PO PRN (17:42)
--- NOTE | 2017-05-03 18:28 | CP.PCM.PN ---
Subjective - Date & Time of Evaluation Date of Evaluation: 05/03/17 Time of Evaluation: 06:00 - Subjective Subjective: TEMPS DOWN IV RX IN PROGRESS CONT RX FOR 6 WEEKS Objective - Vital Signs/Intake and Output Vital Signs (last 24 hours): Temp Pulse Resp BP Pulse Ox 99.4 F 83 20 114/68 100 05/03/17 15:13 05/03/17 15:13 05/03/17 15:13 05/03/17 15:13 05/03/17 15:13 Intake and Output: 05/03/17 05/03/17 06:59 18:59 Intake Total 300 Balance 300 - Medications Medications: Current Medications Acetaminophen (Tylenol 325mg Tab) 650 mg PO Q6 PRN PRN Reason: Fever >100.4 F Albuterol/Ipratropium (Duoneb 3 Mg/0.5 Mg (3 Ml) Ud) 3 ml INH RQ6 [facility] Last Admin: 05/03/17 13:14 Dose: 3 ml Amlodipine Besylate (Norvasc) 10 mg PO DAILY [facility] Last Admin: 05/03/17 09:47 Dose: 10 mg Aspirin (Aspirin Chewable) 81 mg PO DAILY [facility] Last Admin: 05/03/17 09:46 Dose: 81 mg Calcium Carbonate (Oscal) 500 mg PO BID [facility] Last Admin: 05/03/17 17:26 Dose: 500 mg Carvedilol (Coreg) 6.25 mg PO Q12 [facility] Last Admin: 05/03/17 09:45 Dose: 6.25 mg Cyanocobalamin (Vitamin B12 1000 Mcg/Ml Inj) 1,000 mcg IM DAILY [facility] Last Admin: 05/03/17 09:46 Dose: 1,000 mcg Diphenhydramine HCl (Benadryl) 25 mg PO Q8 PRN PRN Reason: Itching / Pruritus Epoetin Tom (Procrit) 10,000 unit IV TTS [facility] Last Admin: 05/02/17 12:37 Dose: 10,000 unit Ergocalciferol (Drisdol 50,000 Intl Units Cap) 1 cap PO Q7D [facility] Last Admin: 05/03/17 09:45 Dose: 1 cap Guaifenesin/Dextromethorphan (Robitussin Dm) 10 ml PO Q4H PRN PRN Reason: Cough and congestion Last Admin: 05/03/17 17:42 Dose: 10 ml Heparin Sodium (Porcine) (Heparin) 5,000 units SC Q12H [facility] Last Admin: 05/03/17 09:46 Dose: 5,000 units Hydromorphone HCl (Dilaudid) 0.5 mg SC Q6H PRN PRN Reason: Pain, moderate (4-7) Last Admin: 05/03/17 13:10 Dose: 0.5 mg Vancomycin HCl 500 mg/ Sodium (Chloride) 100 mls @ 100 mls/hr IVPB TTS [facility] Last Admin: 05/02/17 14:15 Dose: 100 mls/hr Meropenem 500 mg/ Sodium (Chloride) 100 mls @ 200 mls/hr IVPB Q12H [facility] Last Admin: 05/03/17 17:27 Dose: 200 mls/hr Insulin Aspart (Novolog) 0 unit SC ACHS [facility] PRN Reason: Protocol Last Admin: 05/03/17 17:26 Dose: 1 unit Insulin Detemir (Levemir) 8 unit SC HS [facility] Last Admin: 05/02/17 22:09 Dose: 8 unit Isosorbide Mononitrate (Imdur) 60 mg PO DAILY [facility] Last Admin: 05/03/17 09:46 Dose: 60 mg Levetiracetam (Keppra) 750 mg PO BID [facility] Last Admin: 05/03/17 17:41 Dose: 750 mg Pantoprazole Sodium (Protonix Ec Tab) 40 mg PO DAILY [facility] Last Admin: 05/03/17 09:45 Dose: 40 mg Rosuvastatin Calcium (Crestor) 10 mg PO HS [facility] Last Admin: 05/02/17 22:09 Dose: 10 mg Valproate Sodium (Depakene Oral Soln) 250 mg PO QID [facility] Last Admin: 05/03/17 17:26 Dose: 250 mg Vitamin B Complex/Vit C/Folic Acid (Nephro-Courtney) 1 tab PO 0800 [facility] Last Admin: 05/03/17 08:57 Dose: 1 tab - Labs Labs: 04/30/17 19:46 04/29/17 07:17 - Constitutional Appears: Non-toxic, Cachectic - Head Exam Head Exam: NORMOCEPHALIC - Eye Exam Eye Exam: absent: PERRL - ENT Exam ENT Exam: Mucous Membranes Dry - Neck Exam Neck Exam: absent: Lymphadenopathy - Respiratory Exam Respiratory Exam: Decreased Breath Sounds - Cardiovascular Exam Cardiovascular Exam: REGULAR RHYTHM Assessment and Plan (1) CVA (cerebral vascular accident) Status: Acute (2) Diabetes mellitus with cardiac complication Status: Acute (3) Renal failure associated with renal vascular disease Status: Acute
[2017-05-03] MEDS: Insulin Detemir 100 units/ml Vial (Levemir) SC SCH (21:54)
--- NOTE | 2017-05-04 00:06 | CP.PCM.PN ---
Subjective - Date & Time of Evaluation Date of Evaluation: 05/03/17 Time of Evaluation: 21:15 - Subjective Subjective: Patient is doing better, no fever, more awake and alert, more interative sitting OOB in Chair, however he is coughing significantly. There is no distress. He is on Depakote and Keppra. He is on Aspirin and SQ Heparin 5000 unit Q 12hrs. His EEG did not show any Seizures, only Encephalopathy. Normal V.S. Objective - Vital Signs/Intake and Output Vital Signs (last 24 hours): Temp Pulse Resp BP Pulse Ox 98.5 F 83 20 114/68 100 05/03/17 20:05 05/03/17 15:13 05/03/17 15:13 05/03/17 15:13 05/03/17 15:13 Intake and Output: 05/03/17 05/04/17 18:59 06:59 Intake Total 300 340 Balance 300 340 - Medications Medications: Current Medications Acetaminophen (Tylenol 325mg Tab) 650 mg PO Q6 PRN PRN Reason: Fever >100.4 F Albuterol/Ipratropium (Duoneb 3 Mg/0.5 Mg (3 Ml) Ud) 3 ml INH RQ6 [facility] Last Admin: 05/03/17 20:15 Dose: 3 ml Amlodipine Besylate (Norvasc) 10 mg PO DAILY [facility] Last Admin: 05/03/17 09:47 Dose: 10 mg Aspirin (Aspirin Chewable) 81 mg PO DAILY [facility] Last Admin: 05/03/17 09:46 Dose: 81 mg Calcium Carbonate (Oscal) 500 mg PO BID [facility] Last Admin: 05/03/17 17:26 Dose: 500 mg Carvedilol (Coreg) 6.25 mg PO Q12 [facility] Last Admin: 05/03/17 21:57 Dose: 6.25 mg Cyanocobalamin (Vitamin B12 1000 Mcg/Ml Inj) 1,000 mcg IM DAILY [facility] Last Admin: 05/03/17 09:46 Dose: 1,000 mcg Diphenhydramine HCl (Benadryl) 25 mg PO Q8 PRN PRN Reason: Itching / Pruritus Epoetin Tom (Procrit) 10,000 unit IV TTS [facility] Last Admin: 05/02/17 12:37 Dose: 10,000 unit Ergocalciferol (Drisdol 50,000 Intl Units Cap) 1 cap PO Q7D [facility] Last Admin: 05/03/17 09:45 Dose: 1 cap Guaifenesin/Dextromethorphan (Robitussin Dm) 10 ml PO Q4H PRN PRN Reason: Cough and congestion Last Admin: 05/03/17 17:42 Dose: 10 ml Heparin Sodium (Porcine) (Heparin) 5,000 units SC Q12H [facility] Last Admin: 05/03/17 21:53 Dose: 5,000 units Hydromorphone HCl (Dilaudid) 0.5 mg SC Q6H PRN PRN Reason: Pain, moderate (4-7) Last Admin: 05/03/17 19:07 Dose: 0.5 mg Vancomycin HCl 500 mg/ Sodium (Chloride) 100 mls @ 100 mls/hr IVPB TTS [facility] Last Admin: 05/02/17 14:15 Dose: 100 mls/hr Meropenem 500 mg/ Sodium (Chloride) 100 mls @ 200 mls/hr IVPB Q12H [facility] Last Admin: 05/03/17 17:27 Dose: 200 mls/hr Insulin Aspart (Novolog) 0 unit SC ACHS [facility] PRN Reason: Protocol Last Admin: 05/03/17 21:54 Dose: Not Given Insulin Detemir (Levemir) 8 unit SC HS [facility] Last Admin: 05/03/17 21:54 Dose: 8 unit Isosorbide Mononitrate (Imdur) 60 mg PO DAILY [facility] Last Admin: 05/03/17 09:46 Dose: 60 mg Levetiracetam (Keppra) 750 mg PO BID [facility] Last Admin: 05/03/17 17:41 Dose: 750 mg Pantoprazole Sodium (Protonix Ec Tab) 40 mg PO DAILY [facility] Last Admin: 05/03/17 09:45 Dose: 40 mg Rosuvastatin Calcium (Crestor) 10 mg PO HS [facility] Last Admin: 05/03/17 21:53 Dose: 10 mg Valproate Sodium (Depakene Oral Soln) 250 mg PO QID [facility] Last Admin: 05/03/17 21:53 Dose: 250 mg Vitamin B Complex/Vit C/Folic Acid (Nephro-Courtney) 1 tab PO 0800 [facility] Last Admin: 05/03/17 08:57 Dose: 1 tab - Labs Labs: 04/30/17 19:46 04/29/17 07:17 Assessment and Plan (1) CVA (cerebral vascular accident) Status: Acute (2) Abdominal discomfort Status: Acute (3) Accelerated essential hypertension Status: Acute (4) Asthma Status: Acute (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
[2017-05-04] MEDS: Albuterol-Ipratrop 3 mg / 0.5 (3 ml) UD INH SCH ×4 (02:06→19:34)
[2017-05-04] MEDS: HYDROmorphone 0.5 mg/0.5 ml ISec SC PRN ×3 (03:08→21:10)
[2017-05-04] MEDS: Meropenem 500 MG in Sodium Chloride 0.9% 100 ML IVPB SCH ×2 (05:09→19:02)
[2017-05-04 07:56] LABS: CALCIUM 8.6 mg/dl (8.6-10.4); PHOSPHOROUS 4.3 mg/dL (2.5-4.5); POTASSIUM 4.3 mmol/L (3.6-5.2)
[2017-05-04] MEDS: Multivitamin Vitamin B Complex (Nephro-Vite) Tab PO SCH (08:48)
[2017-05-04] MEDS: guaiFENesin DM 200 mg-20 mg/10 ml UD PO PRN (08:48)
[2017-05-04] MEDS: (Novolog) Insulin Aspart, Recombinant 100 u/ml 10 ml vial SC SCH ×3 (08:49→21:02)
[2017-05-04 10:00] LABS: HEMATOCRIT 23.8 % (35.0-51.0); MEAN CELL VOLUME 92.2 fL (80.0-94.0); MEAN CORPUSCULAR HEMOGLOBIN 30.3 pg (27.0-31.0); MEAN CORPUSCULAR HGB CONC 32.9 g/dL (33.0-37.0); MEAN PLATELET VOLUME 8.1 fL (7.2-11.7); RED CELL DISTRIBUTION WIDTH 17.3 % (11.5-14.5); WHITE BLOOD COUNT 10.3 K/uL (4.8-10.8)
[2017-05-04] MEDS: Pantoprazole 40 mg EC Tab PO SCH ×2 (10:30→13:46)
[2017-05-04] MEDS: Valproic Acid 250 mg/5 ml UD Cup PO SCH ×4 (10:30→21:16)
[2017-05-04] MEDS: levETIRAcetam 100 mg/ml (5ml) Oral Syringe PO SCH ×3 (10:30→19:03)
[2017-05-04] MEDS: Epoetin Alfa 10,000 unit/ml Dialysis IV SCH (11:07)
--- NOTE | 2017-05-04 14:01 | CP.PCM.PN ---
Subjective - Date & Time of Evaluation Date of Evaluation: 05/04/17 Time of Evaluation: 13:56 - Subjective Subjective: Awake and alert c/o cough No CP or volume overload No fevers No N/V Objective - Vital Signs/Intake and Output Vital Signs (last 24 hours): Temp Pulse Resp BP Pulse Ox 98.9 F 81 16 152/87 H 100 05/04/17 13:15 05/04/17 13:15 05/04/17 13:15 05/04/17 13:15 05/04/17 13:15 Intake and Output: 05/04/17 05/04/17 06:59 18:59 Intake Total 590 Balance 590 - Medications Medications: Current Medications Acetaminophen (Tylenol 325mg Tab) 650 mg PO Q6 PRN PRN Reason: Fever >100.4 F Albuterol/Ipratropium (Duoneb 3 Mg/0.5 Mg (3 Ml) Ud) 3 ml INH RQ6 [facility] Last Admin: 05/04/17 13:18 Dose: Not Given Amlodipine Besylate (Norvasc) 10 mg PO DAILY [facility] Last Admin: 05/04/17 13:46 Dose: 10 mg Aspirin (Aspirin Chewable) 81 mg PO DAILY [facility] Last Admin: 05/04/17 13:46 Dose: 81 mg Calcium Carbonate (Oscal) 500 mg PO BID [facility] Last Admin: 05/04/17 13:46 Dose: 500 mg Carvedilol (Coreg) 6.25 mg PO Q12 [facility] Last Admin: 05/04/17 13:46 Dose: 6.25 mg Cyanocobalamin (Vitamin B12 1000 Mcg/Ml Inj) 1,000 mcg IM DAILY [facility] Last Admin: 05/04/17 13:46 Dose: 1,000 mcg Diphenhydramine HCl (Benadryl) 25 mg PO Q8 PRN PRN Reason: Itching / Pruritus Epoetin Tom (Procrit) 10,000 unit IV TTS [facility] Last Admin: 05/04/17 11:07 Dose: 10,000 unit Ergocalciferol (Drisdol 50,000 Intl Units Cap) 1 cap PO Q7D [facility] Last Admin: 05/03/17 09:45 Dose: 1 cap Guaifenesin/Dextromethorphan (Robitussin Dm) 10 ml PO Q4H PRN PRN Reason: Cough and congestion Last Admin: 05/04/17 08:48 Dose: 10 ml Heparin Sodium (Porcine) (Heparin) 5,000 units SC Q12H [facility] Last Admin: 05/04/17 13:45 Dose: 5,000 units Heparin Sodium (Porcine) (Heparin) 4,700 units IVP TTS [facility] Last Admin: 05/04/17 11:06 Dose: 4,700 units Hydromorphone HCl (Dilaudid) 0.5 mg SC Q6H PRN PRN Reason: Pain, moderate (4-7) Last Admin: 05/04/17 10:17 Dose: 0.5 mg Vancomycin HCl 500 mg/ Sodium (Chloride) 100 mls @ 100 mls/hr IVPB TTS [facility] Last Admin: 05/04/17 11:07 Dose: 100 mls/hr Meropenem 500 mg/ Sodium (Chloride) 100 mls @ 200 mls/hr IVPB Q12H [facility] Last Admin: 05/04/17 05:09 Dose: 200 mls/hr Insulin Aspart (Novolog) 0 unit SC ACHS [facility] PRN Reason: Protocol Last Admin: 05/04/17 08:49 Dose: 1 unit Insulin Detemir (Levemir) 8 unit SC HS [facility] Last Admin: 05/03/17 21:54 Dose: 8 unit Isosorbide Mononitrate (Imdur) 60 mg PO DAILY [facility] Last Admin: 05/04/17 13:46 Dose: 60 mg Levetiracetam (Keppra) 750 mg PO BID [facility] Last Admin: 05/04/17 13:45 Dose: 750 mg Pantoprazole Sodium (Protonix Ec Tab) 40 mg PO DAILY [facility] Last Admin: 05/04/17 13:46 Dose: 40 mg Rosuvastatin Calcium (Crestor) 10 mg PO HS [facility] Last Admin: 05/03/17 21:53 Dose: 10 mg Valproate Sodium (Depakene Oral Soln) 250 mg PO QID [facility] Last Admin: 05/04/17 13:45 Dose: 250 mg Vitamin B Complex/Vit C/Folic Acid (Nephro-Courtney) 1 tab PO 0800 [facility] Last Admin: 05/04/17 08:48 Dose: 1 tab - Labs Labs: 05/04/17 09:57 05/04/17 07:16 - Constitutional Appears: No Acute Distress, Chronically Ill - Head Exam Head Exam: ATRAUMATIC, NORMAL INSPECTION, NORMOCEPHALIC - Eye Exam Eye Exam: absent: Normal appearance - ENT Exam ENT Exam: Mucous Membranes Moist, Normal Oropharynx - Neck Exam Neck Exam: Full ROM. absent: Tenderness, Thyromegaly - Respiratory Exam Respiratory Exam: Rhonchi. absent: Wheezes - Cardiovascular Exam Cardiovascular Exam: REGULAR RHYTHM, +S1, +S2, Murmur - Extremities Exam Extremities Exam: absent: Normal Inspection (B/L BKA) - Neurological Exam Neurological Exam: Alert, Awake - Psychiatric Exam Psychiatric exam: Depressed - Skin Skin Exam: Normal Color, Warm Assessment and Plan - Assessment and Plan (Free Text) Assessment: 1. 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 - Repeat echo 04/27/17: directly viewed by me: Normal LVEF, mod LVH, mod-sev pulm HTN, Grade 2 diastolic dysfunction Mild AI, MR,TR -No longer seen is the R. atrial mass which was probably attached to R. HD catheter. More likely thrombus although infection was a possibility. >Patient has following indications for anticoagulation 1. Recent large mass attached to HD catheter in RA (likely thrombus) cannot exclude vegetation 2. Hx of aflutter/fib paroxysmal > Neuro input agrees with AC > Need to eval GI bleed risk > Fecal occult 05/03/17; negative > if ok then I suggest eliquis 2.5 BID EEG: encepholopathic pattern: no seizures Cough: CPOD/PNA/Bronchitis: no fevers, abx and pulmonary supportive care. ESRD on HD Health care associated PNA on ABX wide a wide spectrum of coverage HTN is chronic and stable on current medications DM - Brittle on insulin PVD s/p b/l BKA CAD s/p CABG and PCI now non revascularizable, ranexa and nitrates, high dose statin
--- NOTE | 2017-05-04 16:50 | CP.PCM.PN ---
Subjective - Date & Time of Evaluation Date of Evaluation: 05/04/17 Time of Evaluation: 16:46 - Subjective Subjective: Follow up Nephrology Consultation Note Assessment: Stable Diabetic chronic Kidney Disease (E11.22) Hypertensive Chronic Kidney Disease (I12.0) End stage renal disease (N18.6) dependence on hemodialysis (Z99.2) (TTS) via permacath Anemia (D64.9), Hyperphosphatemia (E83.39), Secondary Hyperparathyroidism (E21.1 ), HTN (I12.0) Infective endocarditis Plan: Will plan for HD today as ordered. Continue with Nephrovite 1 tab/day. PRBC as needed for anemia[place] [address] [place], last Hb 7.8 Continue with phos binders, check phos level Add 0.25 mcg calcitriol with dialysis. Last PTH level 639 BP control with meds as ordered. Patient not on RAAS skyler will add losartan Glycemic control, Dialysis consistent diet Further work up/management as per primary team Dose meds/antibiotics (if needed) for ESRD status. Avoid fleets enema/magnesium based laxatives. Thanks for allowing me to participate in care of your patient. Will follow patient with you. Please call if any Qs Dr Eric Temple Office: [phone] Subjective: Noted events overnight. Patients feels okay. Denies chest pain, palpitation, shortness of breath. No urinary complaints Physical Examination: General Appearance: Comfortable, in no acute respiratory distress, co- operative. Vitals reviewed and noted as below Lungs: Normal respiratory rate/effort. Breath sounds bilateral equal and clear Heart: Normal rate. s1s2 normal. No rub or gallop. Extremities: no edema. s/p b/l BKA Neurological: Patient is alert, awake and oriented to person, place and time. No focal deficit. Strength bilateral appropriate and equal Skin: Warm and dry. Normal turgor. No rash. Palpitation: Normal elasticity for age Abdomen: Abdomen is soft. Bowel sounds +. There is no abdominal tenderness, no guarding/rigidity or organomegaly : kidney or bladder not palpable Access: permacath Labs/imaging reviewed. Past medical history, past surgical history, family history, social history, allergy reviewed Objective - Vital Signs/Intake and Output Vital Signs (last 24 hours): Temp Pulse Resp BP Pulse Ox 98.9 F 81 16 152/87 H 100 05/04/17 13:15 05/04/17 13:15 05/04/17 13:15 05/04/17 13:15 05/04/17 13:15 Intake and Output: 05/04/17 05/04/17 06:59 18:59 Intake Total 590 Balance 590 - Medications Medications: Current Medications Acetaminophen (Tylenol 325mg Tab) 650 mg PO Q6 PRN PRN Reason: Fever >100.4 F Albuterol/Ipratropium (Duoneb 3 Mg/0.5 Mg (3 Ml) Ud) 3 ml INH RQ6 [facility] Last Admin: 05/04/17 13:18 Dose: Not Given Amlodipine Besylate (Norvasc) 10 mg PO DAILY [facility] Last Admin: 05/04/17 13:46 Dose: 10 mg Aspirin (Aspirin Chewable) 81 mg PO DAILY [facility] Last Admin: 05/04/17 13:46 Dose: 81 mg Calcium Carbonate (Oscal) 500 mg PO BID [facility] Last Admin: 05/04/17 13:46 Dose: 500 mg Carvedilol (Coreg) 6.25 mg PO Q12 [facility] Last Admin: 05/04/17 13:46 Dose: 6.25 mg Cyanocobalamin (Vitamin B12 1000 Mcg/Ml Inj) 1,000 mcg IM DAILY [facility] Last Admin: 05/04/17 13:46 Dose: 1,000 mcg Diphenhydramine HCl (Benadryl) 25 mg PO Q8 PRN PRN Reason: Itching / Pruritus Epoetin Tom (Procrit) 10,000 unit IV TTS [facility] Epoetin Tom (Procrit) 4,000 unit IV TTS [facility] Ergocalciferol (Drisdol 50,000 Intl Units Cap) 1 cap PO Q7D [facility] Last Admin: 05/03/17 09:45 Dose: 1 cap Guaifenesin/Dextromethorphan (Robitussin Dm) 10 ml PO Q4H PRN PRN Reason: Cough and congestion Last Admin: 05/04/17 08:48 Dose: 10 ml Heparin Sodium (Porcine) (Heparin) 5,000 units SC Q12H [facility] Last Admin: 05/04/17 13:45 Dose: 5,000 units Heparin Sodium (Porcine) (Heparin) 4,700 units IVP TTS [facility] Last Admin: 05/04/17 11:06 Dose: 4,700 units Hydromorphone HCl (Dilaudid) 0.5 mg SC Q6H PRN PRN Reason: Pain, moderate (4-7) Last Admin: 05/04/17 10:17 Dose: 0.5 mg Vancomycin HCl 500 mg/ Sodium (Chloride) 100 mls @ 100 mls/hr IVPB TTS [facility] Last Admin: 05/04/17 11:07 Dose: 100 mls/hr Meropenem 500 mg/ Sodium (Chloride) 100 mls @ 200 mls/hr IVPB Q12H [facility] Last Admin: 05/04/17 05:09 Dose: 200 mls/hr Insulin Aspart (Novolog) 0 unit SC ACHS [facility] PRN Reason: Protocol Last Admin: 05/04/17 08:49 Dose: 1 unit Insulin Detemir (Levemir) 8 unit SC HS [facility] Last Admin: 05/03/17 21:54 Dose: 8 unit Isosorbide Mononitrate (Imdur) 60 mg PO DAILY [facility] Last Admin: 05/04/17 13:46 Dose: 60 mg Levetiracetam (Keppra) 750 mg PO BID [facility] Last Admin: 05/04/17 13:45 Dose: 750 mg Losartan Potassium (Cozaar) 25 mg PO DAILY [facility] Pantoprazole Sodium (Protonix Ec Tab) 40 mg PO DAILY [facility] Last Admin: 05/04/17 13:46 Dose: 40 mg Rosuvastatin Calcium (Crestor) 10 mg PO HS [facility] Last Admin: 05/03/17 21:53 Dose: 10 mg Valproate Sodium (Depakene Oral Soln) 250 mg PO QID [facility] Last Admin: 05/04/17 13:45 Dose: 250 mg Vitamin B Complex/Vit C/Folic Acid (Nephro-Courtney) 1 tab PO 0800 [facility] Last Admin: 05/04/17 08:48 Dose: 1 tab - Labs Labs: 05/04/17 09:57 05/04/17 07:16
--- NOTE | 2017-05-04 16:56 | CP.PCM.PN ---
Subjective - Date & Time of Evaluation Date of Evaluation: 05/04/17 Time of Evaluation: 16:53 - Subjective Subjective: pt feels beter today less cough no fever no new chest pain Objective - Vital Signs/Intake and Output Vital Signs (last 24 hours): Temp Pulse Resp BP Pulse Ox 98.9 F 81 16 152/87 H 100 05/04/17 13:15 05/04/17 13:15 05/04/17 13:15 05/04/17 13:15 05/04/17 13:15 Intake and Output: 05/04/17 05/04/17 06:59 18:59 Intake Total 590 Balance 590 - Medications Medications: Current Medications Acetaminophen (Tylenol 325mg Tab) 650 mg PO Q6 PRN PRN Reason: Fever >100.4 F Albuterol/Ipratropium (Duoneb 3 Mg/0.5 Mg (3 Ml) Ud) 3 ml INH RQ6 [facility] Last Admin: 05/04/17 13:18 Dose: Not Given Amlodipine Besylate (Norvasc) 10 mg PO DAILY [facility] Last Admin: 05/04/17 13:46 Dose: 10 mg Aspirin (Aspirin Chewable) 81 mg PO DAILY [facility] Last Admin: 05/04/17 13:46 Dose: 81 mg Calcitriol (Rocaltrol) 0.25 mcg PO TTS [facility] Calcium Carbonate (Oscal) 500 mg PO BID [facility] Last Admin: 05/04/17 13:46 Dose: 500 mg Carvedilol (Coreg) 6.25 mg PO Q12 [facility] Last Admin: 05/04/17 13:46 Dose: 6.25 mg Cyanocobalamin (Vitamin B12 1000 Mcg/Ml Inj) 1,000 mcg IM DAILY [facility] Last Admin: 05/04/17 13:46 Dose: 1,000 mcg Diphenhydramine HCl (Benadryl) 25 mg PO Q8 PRN PRN Reason: Itching / Pruritus Epoetin Tom (Procrit) 10,000 unit IV TTS [facility] Epoetin Tom (Procrit) 4,000 unit IV TTS [facility] Ergocalciferol (Drisdol 50,000 Intl Units Cap) 1 cap PO Q7D [facility] Last Admin: 05/03/17 09:45 Dose: 1 cap Guaifenesin/Dextromethorphan (Robitussin Dm) 10 ml PO Q4H PRN PRN Reason: Cough and congestion Last Admin: 05/04/17 08:48 Dose: 10 ml Heparin Sodium (Porcine) (Heparin) 5,000 units SC Q12H [facility] Last Admin: 05/04/17 13:45 Dose: 5,000 units Heparin Sodium (Porcine) (Heparin) 4,700 units IVP TTS [facility] Last Admin: 05/04/17 11:06 Dose: 4,700 units Hydromorphone HCl (Dilaudid) 0.5 mg SC Q6H PRN PRN Reason: Pain, moderate (4-7) Last Admin: 05/04/17 10:17 Dose: 0.5 mg Vancomycin HCl 500 mg/ Sodium (Chloride) 100 mls @ 100 mls/hr IVPB TTS [facility] Last Admin: 05/04/17 11:07 Dose: 100 mls/hr Meropenem 500 mg/ Sodium (Chloride) 100 mls @ 200 mls/hr IVPB Q12H [facility] Last Admin: 05/04/17 05:09 Dose: 200 mls/hr Insulin Aspart (Novolog) 0 unit SC ACHS [facility] PRN Reason: Protocol Last Admin: 05/04/17 08:49 Dose: 1 unit Insulin Detemir (Levemir) 8 unit SC HS [facility] Last Admin: 05/03/17 21:54 Dose: 8 unit Isosorbide Mononitrate (Imdur) 60 mg PO DAILY [facility] Last Admin: 05/04/17 13:46 Dose: 60 mg Levetiracetam (Keppra) 750 mg PO BID [facility] Last Admin: 05/04/17 13:45 Dose: 750 mg Losartan Potassium (Cozaar) 25 mg PO DAILY [facility] Pantoprazole Sodium (Protonix Ec Tab) 40 mg PO DAILY [facility] Last Admin: 05/04/17 13:46 Dose: 40 mg Rosuvastatin Calcium (Crestor) 10 mg PO HS [facility] Last Admin: 05/03/17 21:53 Dose: 10 mg Valproate Sodium (Depakene Oral Soln) 250 mg PO QID [facility] Last Admin: 05/04/17 13:45 Dose: 250 mg Vitamin B Complex/Vit C/Folic Acid (Nephro-Courtney) 1 tab PO 0800 [facility] Last Admin: 05/04/17 08:48 Dose: 1 tab - Labs Labs: 05/04/17 09:57 05/04/17 07:16 - Constitutional Appears: Non-toxic - Head Exam Head Exam: ATRAUMATIC - Eye Exam Eye Exam: Conjunctival injection - ENT Exam ENT Exam: Mucous Membranes Moist - Neck Exam Neck Exam: Full ROM - Respiratory Exam Respiratory Exam: Decreased Breath Sounds - Cardiovascular Exam Cardiovascular Exam: REGULAR RHYTHM - GI/Abdominal Exam GI & Abdominal Exam: Soft - Rectal Exam Rectal Exam: Deferred - Back Exam Back Exam: CVA tenderness (L) - Neurological Exam Neurological Exam: Alert, Oriented x3 - Psychiatric Exam Psychiatric exam: Depressed - Skin Skin Exam: Pallor Assessment and Plan - Assessment and Plan (Free Text) Assessment: pnumonia improving DMID ESRF ANEAMIA S/P ENDOCARDITIS CAD Plan: CONT PER ORDERS
--- NOTE | 2017-05-04 19:58 | CP.PCM.PN ---
Subjective - Date & Time of Evaluation Date of Evaluation: 05/04/17 Time of Evaluation: 19:00 - Subjective Subjective: Doing better, no cough. On Anticoagulation, SQ Heparin and IV Heparin low dose limited dose. Regained his ability to talk. No Fever. receiving Antibiotics. Interactive, able to express much of his needs. OOB to chair. 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 H/o DM and PVD, legal blindness.. Objective - Vital Signs/Intake and Output Vital Signs (last 24 hours): Temp Pulse Resp BP Pulse Ox 99.2 F 83 20 151/75 H 100 05/04/17 15:10 05/04/17 19:01 05/04/17 15:10 05/04/17 19:01 05/04/17 15:10 Intake and Output: 05/04/17 05/05/17 18:59 06:59 Intake Total 300 Balance 300 - Medications Medications: Current Medications Acetaminophen (Tylenol 325mg Tab) 650 mg PO Q6 PRN PRN Reason: Fever >100.4 F Albuterol/Ipratropium (Duoneb 3 Mg/0.5 Mg (3 Ml) Ud) 3 ml INH RQ6 [facility] Last Admin: 05/04/17 19:34 Dose: 3 ml Amlodipine Besylate (Norvasc) 10 mg PO DAILY [facility] Last Admin: 05/04/17 13:46 Dose: 10 mg Aspirin (Aspirin Chewable) 81 mg PO DAILY [facility] Last Admin: 05/04/17 13:46 Dose: 81 mg Calcitriol (Rocaltrol) 0.25 mcg PO TTS [facility] Calcium Carbonate (Oscal) 500 mg PO BID [facility] Last Admin: 05/04/17 19:03 Dose: 500 mg Carvedilol (Coreg) 6.25 mg PO Q12 [facility] Last Admin: 05/04/17 13:46 Dose: 6.25 mg Cyanocobalamin (Vitamin B12 1000 Mcg/Ml Inj) 1,000 mcg IM DAILY [facility] Last Admin: 05/04/17 13:46 Dose: 1,000 mcg Diphenhydramine HCl (Benadryl) 25 mg PO Q8 PRN PRN Reason: Itching / Pruritus Epoetin Tom (Procrit) 10,000 unit IV TTS [facility] Epoetin Tom (Procrit) 4,000 unit IV TTS [facility] Ergocalciferol (Drisdol 50,000 Intl Units Cap) 1 cap PO Q7D [facility] Last Admin: 05/03/17 09:45 Dose: 1 cap Guaifenesin/Dextromethorphan (Robitussin Dm) 10 ml PO Q4H PRN PRN Reason: Cough and congestion Last Admin: 05/04/17 08:48 Dose: 10 ml Heparin Sodium (Porcine) (Heparin) 5,000 units SC Q12H [facility] Last Admin: 05/04/17 13:45 Dose: 5,000 units Heparin Sodium (Porcine) (Heparin) 4,700 units IVP TTS [facility] Last Admin: 05/04/17 11:06 Dose: 4,700 units Hydromorphone HCl (Dilaudid) 0.5 mg SC Q6H PRN PRN Reason: Pain, moderate (4-7) Last Admin: 05/04/17 10:17 Dose: 0.5 mg Vancomycin HCl 500 mg/ Sodium (Chloride) 100 mls @ 100 mls/hr IVPB TTS [facility] Last Admin: 05/04/17 11:07 Dose: 100 mls/hr Meropenem 500 mg/ Sodium (Chloride) 100 mls @ 200 mls/hr IVPB Q12H [facility] Last Admin: 05/04/17 19:02 Dose: 200 mls/hr Insulin Aspart (Novolog) 0 unit SC ACHS [facility] PRN Reason: Protocol Last Admin: 05/04/17 08:49 Dose: 1 unit Insulin Detemir (Levemir) 8 unit SC [facility] Last Admin: 05/03/17 21:54 Dose: 8 unit Isosorbide Mononitrate (Imdur) 60 mg PO DAILY [facility] Last Admin: 05/04/17 13:46 Dose: 60 mg Levetiracetam (Keppra) 750 mg PO BID [facility] Last Admin: 05/04/17 19:03 Dose: 750 mg Losartan Potassium (Cozaar) 25 mg PO DAILY [facility] Pantoprazole Sodium (Protonix Ec Tab) 40 mg PO DAILY [facility] Last Admin: 05/04/17 13:46 Dose: 40 mg Rosuvastatin Calcium (Crestor) 10 mg PO HS [facility] Last Admin: 05/03/17 21:53 Dose: 10 mg Valproate Sodium (Depakene Oral Soln) 250 mg PO QID [facility] Last Admin: 05/04/17 19:02 Dose: 250 mg Vitamin B Complex/Vit C/Folic Acid (Nephro-Courtney) 1 tab PO 0800 [facility] Last Admin: 05/04/17 08:48 Dose: 1 tab - Labs Labs: 05/04/17 09:57 05/04/17 07:16 Assessment and Plan (1) CVA (cerebral vascular accident) Status: Suspected (2) Abdominal discomfort Status: Acute (3) Accelerated essential hypertension Status: Acute (4) Asthma Status: Acute (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
[2017-05-05] MEDS: Albuterol-Ipratrop 3 mg / 0.5 (3 ml) UD INH SCH ×4 (01:14→19:27)
[2017-05-05] MEDS: HYDROmorphone 0.5 mg/0.5 ml ISec SC PRN ×3 (03:48→16:15)
[2017-05-05] MEDS: Meropenem 500 MG in Sodium Chloride 0.9% 100 ML IVPB SCH ×2 (05:39→18:04)
[2017-05-05] MEDS: Multivitamin Vitamin B Complex (Nephro-Vite) Tab PO SCH (08:56)
[2017-05-05 09:58] VITALS: O2SAT 100
[2017-05-05] MEDS: levETIRAcetam 100 mg/ml (5ml) Oral Syringe PO SCH ×2 (10:01→18:08)
[2017-05-05] MEDS: Valproic Acid 250 mg/5 ml UD Cup PO SCH ×4 (10:02→21:01)
[2017-05-05] MEDS: Pantoprazole 40 mg EC Tab PO SCH (10:02)
[2017-05-05] MEDS: (Novolog) Insulin Aspart, Recombinant 100 u/ml 10 ml vial SC SCH ×4 (10:04→21:02)
--- NOTE | 2017-05-05 13:18 | CP.PCM.PN ---
Subjective - Date & Time of Evaluation Date of Evaluation: 05/05/17 Time of Evaluation: 13:15 - Subjective Subjective: pt still has kaitlin but beter no fever feels cold Objective - Vital Signs/Intake and Output Vital Signs (last 24 hours): Temp Pulse Resp BP Pulse Ox 98.2 F 80 20 110/68 100 05/05/17 09:57 05/05/17 09:57 05/05/17 09:57 05/05/17 09:57 05/05/17 09:57 Intake and Output: 05/05/17 05/05/17 06:59 18:59 Intake Total 250 Balance 250 - Medications Medications: Current Medications Acetaminophen (Tylenol 325mg Tab) 650 mg PO Q6 PRN PRN Reason: Fever >100.4 F Albuterol/Ipratropium (Duoneb 3 Mg/0.5 Mg (3 Ml) Ud) 3 ml INH RQ6 [facility] Last Admin: 05/05/17 08:30 Dose: 3 ml Amlodipine Besylate (Norvasc) 10 mg PO DAILY [facility] Last Admin: 05/05/17 10:02 Dose: 10 mg Aspirin (Aspirin Chewable) 81 mg PO DAILY [facility] Last Admin: 05/05/17 10:02 Dose: 81 mg Calcitriol (Rocaltrol) 0.25 mcg PO TTS [facility] Calcium Carbonate (Oscal) 500 mg PO BID [facility] Last Admin: 05/05/17 10:02 Dose: 500 mg Carvedilol (Coreg) 6.25 mg PO Q12 [facility] Last Admin: 05/05/17 10:02 Dose: 6.25 mg Cyanocobalamin (Vitamin B12 1000 Mcg/Ml Inj) 1,000 mcg IM DAILY [facility] Last Admin: 05/05/17 10:02 Dose: 1,000 mcg Diphenhydramine HCl (Benadryl) 25 mg PO Q8 PRN PRN Reason: Itching / Pruritus Epoetin Tom (Procrit) 10,000 unit IV TTS [facility] Epoetin Tom (Procrit) 4,000 unit IV TTS [facility] Ergocalciferol (Drisdol 50,000 Intl Units Cap) 1 cap PO Q7D [facility] Last Admin: 05/03/17 09:45 Dose: 1 cap Guaifenesin/Dextromethorphan (Robitussin Dm) 10 ml PO Q4H PRN PRN Reason: Cough and congestion Last Admin: 05/04/17 08:48 Dose: 10 ml Heparin Sodium (Porcine) (Heparin) 5,000 units SC Q12H [facility] Last Admin: 05/05/17 10:03 Dose: 5,000 units Heparin Sodium (Porcine) (Heparin) 4,700 units IVP TTS [facility] Last Admin: 05/04/17 11:06 Dose: 4,700 units Hydromorphone HCl (Dilaudid) 0.5 mg SC Q6H PRN PRN Reason: Pain, moderate (4-7) Last Admin: 05/05/17 09:58 Dose: 0.5 mg Vancomycin HCl 500 mg/ Sodium (Chloride) 100 mls @ 100 mls/hr IVPB TTS [facility] Last Admin: 05/04/17 11:07 Dose: 100 mls/hr Meropenem 500 mg/ Sodium (Chloride) 100 mls @ 200 mls/hr IVPB Q12H [facility] Last Admin: 05/05/17 05:39 Dose: 200 mls/hr Insulin Aspart (Novolog) 0 unit SC ACHS [facility] PRN Reason: Protocol Last Admin: 05/05/17 12:54 Dose: 1 unit Insulin Detemir (Levemir) 8 unit SC HS [facility] Last Admin: 05/03/17 21:54 Dose: 8 unit Isosorbide Mononitrate (Imdur) 60 mg PO DAILY [facility] Last Admin: 05/05/17 10:02 Dose: 60 mg Levetiracetam (Keppra) 750 mg PO BID [facility] Last Admin: 05/05/17 10:01 Dose: 750 mg Losartan Potassium (Cozaar) 25 mg PO DAILY [facility] Last Admin: 05/05/17 10:02 Dose: 25 mg Pantoprazole Sodium (Protonix Ec Tab) 40 mg PO DAILY [facility] Last Admin: 05/05/17 10:02 Dose: 40 mg Rosuvastatin Calcium (Crestor) 10 mg PO HS [facility] Last Admin: 05/04/17 21:11 Dose: 10 mg Valproate Sodium (Depakene Oral Soln) 250 mg PO QID [facility] Last Admin: 05/05/17 13:04 Dose: 250 mg Vitamin B Complex/Vit C/Folic Acid (Nephro-Courtney) 1 tab PO 0800 [facility] Last Admin: 05/05/17 08:56 Dose: 1 tab - Labs Labs: 05/04/17 09:57 05/04/17 07:16 - Constitutional Appears: Non-toxic - Head Exam Head Exam: NORMAL INSPECTION - Eye Exam Eye Exam: Conjunctival injection - ENT Exam ENT Exam: Mucous Membranes Dry - Neck Exam Neck Exam: Full ROM - Respiratory Exam Respiratory Exam: Decreased Breath Sounds, Rhonchi - Cardiovascular Exam Cardiovascular Exam: REGULAR RHYTHM - GI/Abdominal Exam GI & Abdominal Exam: Soft - Rectal Exam Rectal Exam: NORMAL INSPECTION - Back Exam Back Exam: CVA tenderness (L) - Psychiatric Exam Psychiatric exam: Depressed - Skin Skin Exam: Pallor Assessment and Plan - Assessment and Plan (Free Text) Assessment: ac pnumonia DMID [id number] ANEAMIA CAD Plan: CONT PER ORDERS
--- NOTE | 2017-05-05 14:29 | CP.PCM.PN ---
Subjective - Date & Time of Evaluation Date of Evaluation: 05/05/17 Time of Evaluation: 09:00 - Subjective Subjective: awake alert c/o cough no fever Objective - Vital Signs/Intake and Output Vital Signs (last 24 hours): Temp Pulse Resp BP Pulse Ox 98.2 F 80 20 110/68 100 05/05/17 09:57 05/05/17 09:57 05/05/17 09:57 05/05/17 09:57 05/05/17 09:57 Intake and Output: 05/05/17 05/05/17 06:59 18:59 Intake Total 250 Balance 250 - Medications Medications: Current Medications Acetaminophen (Tylenol 325mg Tab) 650 mg PO Q6 PRN PRN Reason: Fever >100.4 F Albuterol/Ipratropium (Duoneb 3 Mg/0.5 Mg (3 Ml) Ud) 3 ml INH RQ6 [facility] Last Admin: 05/05/17 13:51 Dose: 3 ml Amlodipine Besylate (Norvasc) 10 mg PO DAILY [facility] Last Admin: 05/05/17 10:02 Dose: 10 mg Aspirin (Aspirin Chewable) 81 mg PO DAILY [facility] Last Admin: 05/05/17 10:02 Dose: 81 mg Calcitriol (Rocaltrol) 0.25 mcg PO TTS [facility] Calcium Carbonate (Oscal) 500 mg PO BID [facility] Last Admin: 05/05/17 10:02 Dose: 500 mg Carvedilol (Coreg) 6.25 mg PO Q12 [facility] Last Admin: 05/05/17 10:02 Dose: 6.25 mg Cyanocobalamin (Vitamin B12 1000 Mcg/Ml Inj) 1,000 mcg IM DAILY [facility] Last Admin: 05/05/17 10:02 Dose: 1,000 mcg Diphenhydramine HCl (Benadryl) 25 mg PO Q8 PRN PRN Reason: Itching / Pruritus Epoetin Tom (Procrit) 10,000 unit IV TTS [facility] Epoetin Tom (Procrit) 4,000 unit IV TTS [facility] Ergocalciferol (Drisdol 50,000 Intl Units Cap) 1 cap PO Q7D [facility] Last Admin: 05/03/17 09:45 Dose: 1 cap Guaifenesin/Dextromethorphan (Robitussin Dm) 10 ml PO Q4H PRN PRN Reason: Cough and congestion Last Admin: 05/04/17 08:48 Dose: 10 ml Heparin Sodium (Porcine) (Heparin) 5,000 units SC Q12H [facility] Last Admin: 05/05/17 10:03 Dose: 5,000 units Heparin Sodium (Porcine) (Heparin) 4,700 units IVP TTS [facility] Last Admin: 05/04/17 11:06 Dose: 4,700 units Hydromorphone HCl (Dilaudid) 0.5 mg SC Q6H PRN PRN Reason: Pain, moderate (4-7) Last Admin: 05/05/17 09:58 Dose: 0.5 mg Vancomycin HCl 500 mg/ Sodium (Chloride) 100 mls @ 100 mls/hr IVPB TTS [facility] Last Admin: 05/04/17 11:07 Dose: 100 mls/hr Meropenem 500 mg/ Sodium (Chloride) 100 mls @ 200 mls/hr IVPB Q12H [facility] Last Admin: 05/05/17 05:39 Dose: 200 mls/hr Insulin Aspart (Novolog) 0 unit SC ACHS [facility] PRN Reason: Protocol Last Admin: 05/05/17 12:54 Dose: 1 unit Insulin Detemir (Levemir) 8 unit SC HS [facility] Last Admin: 05/03/17 21:54 Dose: 8 unit Isosorbide Mononitrate (Imdur) 60 mg PO DAILY [facility] Last Admin: 05/05/17 10:02 Dose: 60 mg Levetiracetam (Keppra) 750 mg PO BID [facility] Last Admin: 05/05/17 10:01 Dose: 750 mg Losartan Potassium (Cozaar) 25 mg PO DAILY [facility] Last Admin: 05/05/17 10:02 Dose: 25 mg Pantoprazole Sodium (Protonix Ec Tab) 40 mg PO DAILY [facility] Last Admin: 05/05/17 10:02 Dose: 40 mg Rosuvastatin Calcium (Crestor) 10 mg PO HS [facility] Last Admin: 05/04/17 21:11 Dose: 10 mg Valproate Sodium (Depakene Oral Soln) 250 mg PO QID [facility] Last Admin: 05/05/17 13:04 Dose: 250 mg Vitamin B Complex/Vit C/Folic Acid (Nephro-Courtney) 1 tab PO 0800 [facility] Last Admin: 05/05/17 08:56 Dose: 1 tab - Labs Labs: 05/04/17 09:57 09/02/17 07:16 - Constitutional Appears: Non-toxic, Cachectic, Chronically Ill - Head Exam Head Exam: NORMOCEPHALIC - Eye Exam Eye Exam: absent: Scleral icterus - ENT Exam ENT Exam: Mucous Membranes Dry - Neck Exam Neck Exam: absent: Lymphadenopathy - Respiratory Exam Respiratory Exam: Decreased Breath Sounds, Rhonchi - Cardiovascular Exam Cardiovascular Exam: REGULAR RHYTHM, +S1, +S2 - GI/Abdominal Exam GI & Abdominal Exam: Distended, Soft - Rectal Exam Rectal Exam: Deferred - Exam Exam: NORMAL INSPECTION - Extremities Exam Extremities Exam: absent: Pedal Edema - Back Exam Back Exam: absent: CVA tenderness (L), CVA tenderness (R) - Neurological Exam Neurological Exam: Alert, Awake - Psychiatric Exam Psychiatric exam: Depressed - Skin Skin Exam: Dry, Intact Assessment and Plan (1) CVA (cerebral vascular accident) Status: Suspected (2) Diabetes mellitus with cardiac complication Status: Acute (3) Renal failure associated with renal vascular disease Status: Acute - Assessment and Plan (Free Text) Assessment: cont iv antibiotics for suspected endocarditis
--- NOTE | 2017-05-05 15:21 | CP.PCM.PN ---
Subjective - Date & Time of Evaluation Date of Evaluation: 05/05/17 Time of Evaluation: 15:20 - Subjective Subjective: Follow up Nephrology Consultation Note Assessment: Stable Diabetic chronic Kidney Disease (E11.22) Hypertensive Chronic Kidney Disease (I12.0) End stage renal disease (N18.6) dependence on hemodialysis (Z99.2) (TTS) via permacath Anemia (D64.9), Hyperphosphatemia (E83.39), Secondary Hyperparathyroidism (E21.1 ), HTN (I12.0) Infective endocarditis Plan: Will plan for HD saturday as per TTS schedule No acute need today. Continue with Nephrovite 1 tab/day. PRBC as needed for anemia[place] [address] [place], last Hb 7.8 Continue with phos binders, check phos level Added 0.25 mcg calcitriol with dialysis. Last PTH level 639 BP control with meds as ordered. Patient not on RAAS skyler hence added losartan Glycemic control, Dialysis consistent diet Further work up/management as per primary team Dose meds/antibiotics for ESRD status. Avoid fleets enema/magnesium based laxatives. Thanks for allowing me to participate in care of your patient. Will follow patient with you. Please call if any Qs Dr Eric Temple Office: [phone] Subjective: Noted events overnight. Patients feels okay. Denies chest pain, palpitation, shortness of breath. No urinary complaints Physical Examination: General Appearance: Comfortable, in no acute respiratory distress, co- operative. Vitals reviewed and noted as below Lungs: Normal respiratory rate/effort. Breath sounds bilateral equal and clear Heart: Normal rate. s1s2 normal. No rub or gallop. Extremities: no edema. s/p b/l BKA Neurological: Patient is alert, awake and oriented to person, place and time. No focal deficit. Strength bilateral appropriate and equal Skin: Warm and dry. Normal turgor. No rash. Palpitation: Normal elasticity for age Abdomen: Abdomen is soft. Bowel sounds +. There is no abdominal tenderness, no guarding/rigidity or organomegaly : kidney or bladder not palpable Access: permacath Labs/imaging reviewed. Past medical history, past surgical history, family history, social history, allergy reviewed Objective - Vital Signs/Intake and Output Vital Signs (last 24 hours): Temp Pulse Resp BP Pulse Ox 98.2 F 80 20 110/68 100 05/05/17 09:57 05/05/17 09:57 05/05/17 09:57 05/05/17 09:57 05/05/17 09:57 Intake and Output: 05/05/17 05/05/17 06:59 18:59 Intake Total 250 Balance 250 - Medications Medications: Current Medications Acetaminophen (Tylenol 325mg Tab) 650 mg PO Q6 PRN PRN Reason: Fever >100.4 F Albuterol/Ipratropium (Duoneb 3 Mg/0.5 Mg (3 Ml) Ud) 3 ml INH RQ6 [facility] Last Admin: 05/05/17 13:51 Dose: 3 ml Amlodipine Besylate (Norvasc) 10 mg PO DAILY [facility] Last Admin: 05/05/17 10:02 Dose: 10 mg Aspirin (Aspirin Chewable) 81 mg PO DAILY [facility] Last Admin: 05/05/17 10:02 Dose: 81 mg Calcitriol (Rocaltrol) 0.25 mcg PO TTS [facility] Calcium Carbonate (Oscal) 500 mg PO BID [facility] Last Admin: 05/05/17 10:02 Dose: 500 mg Carvedilol (Coreg) 6.25 mg PO Q12 [facility] Last Admin: 05/05/17 10:02 Dose: 6.25 mg Cyanocobalamin (Vitamin B12 1000 Mcg/Ml Inj) 1,000 mcg IM DAILY [facility] Last Admin: 05/05/17 10:02 Dose: 1,000 mcg Diphenhydramine HCl (Benadryl) 25 mg PO Q8 PRN PRN Reason: Itching / Pruritus Epoetin Tom (Procrit) 10,000 unit IV TTS [facility] Epoetin Tom (Procrit) 4,000 unit IV TTS [facility] Ergocalciferol (Drisdol 50,000 Intl Units Cap) 1 cap PO Q7D [facility] Last Admin: 05/03/17 09:45 Dose: 1 cap Guaifenesin/Dextromethorphan (Robitussin Dm) 10 ml PO Q4H PRN PRN Reason: Cough and congestion Last Admin: 05/04/17 08:48 Dose: 10 ml Heparin Sodium (Porcine) (Heparin) 5,000 units SC Q12H [facility] Last Admin: 05/05/17 10:03 Dose: 5,000 units Heparin Sodium (Porcine) (Heparin) 4,700 units IVP TTS [facility] Last Admin: 05/04/17 11:06 Dose: 4,700 units Hydromorphone HCl (Dilaudid) 0.5 mg SC Q6H PRN PRN Reason: Pain, moderate (4-7) Last Admin: 05/05/17 09:58 Dose: 0.5 mg Vancomycin HCl 500 mg/ Sodium (Chloride) 100 mls @ 100 mls/hr IVPB TTS [facility] Last Admin: 05/04/17 11:07 Dose: 100 mls/hr Meropenem 500 mg/ Sodium (Chloride) 100 mls @ 200 mls/hr IVPB Q12H [facility] Last Admin: 05/05/17 05:39 Dose: 200 mls/hr Insulin Aspart (Novolog) 0 unit SC ACHS [facility] PRN Reason: Protocol Last Admin: 05/05/17 12:54 Dose: 1 unit Insulin Detemir (Levemir) 8 unit SC HS [facility] Last Admin: 05/03/17 21:54 Dose: 8 unit Isosorbide Mononitrate (Imdur) 60 mg PO DAILY [facility] Last Admin: 05/05/17 10:02 Dose: 60 mg Levetiracetam (Keppra) 750 mg PO BID [facility] Last Admin: 05/05/17 10:01 Dose: 750 mg Losartan Potassium (Cozaar) 25 mg PO DAILY [facility] Last Admin: 05/05/17 10:02 Dose: 25 mg Pantoprazole Sodium (Protonix Ec Tab) 40 mg PO DAILY [facility] Last Admin: 05/05/17 10:02 Dose: 40 mg Rosuvastatin Calcium (Crestor) 10 mg PO HS [facility] Last Admin: 05/04/17 21:11 Dose: 10 mg Valproate Sodium (Depakene Oral Soln) 250 mg PO QID [facility] Last Admin: 05/05/17 13:04 Dose: 250 mg Vitamin B Complex/Vit C/Folic Acid (Nephro-Courtney) 1 tab PO 0800 [facility] Last Admin: 05/05/17 08:56 Dose: 1 tab - Labs Labs: 05/04/17 09:57 05/04/17 07:16
[2017-05-05] MEDS: Insulin Detemir 100 units/ml Vial (Levemir) SC SCH (21:01)
--- NOTE | 2017-05-05 23:50 | CP.PCM.PN ---
Subjective - Date & Time of Evaluation Date of Evaluation: 05/05/17 Time of Evaluation: 21:20 - Subjective Subjective: Improving clinically, feeling better, eating well. His long time family friend visited him and helped improving his performance, he is more pleasant. There is less cough and he is not having any fever. He is interactive. All Blood Cultures results are negative. His Vitals are normal. He still has fluctuations in his Blood Glucose. His Renal Function is followed by Nephrology and he is following a routine Hemodialysis on ,T,S. Objective - Vital Signs/Intake and Output Vital Signs (last 24 hours): Temp Pulse Resp BP Pulse Ox 98.9 F 73 20 142/63 100 05/05/17 15:45 05/05/17 15:45 05/05/17 15:45 05/05/17 15:45 05/05/17 15:45 Intake and Output: 05/05/17 05/06/17 18:59 06:59 Intake Total 300 Balance 300 - Medications Medications: Current Medications Acetaminophen (Tylenol 325mg Tab) 650 mg PO Q6 PRN PRN Reason: Fever >100.4 F Albuterol/Ipratropium (Duoneb 3 Mg/0.5 Mg (3 Ml) Ud) 3 ml INH RQ6 [facility] Last Admin: 05/05/17 19:27 Dose: Not Given Amlodipine Besylate (Norvasc) 10 mg PO DAILY [facility] Last Admin: 05/05/17 10:02 Dose: 10 mg Aspirin (Aspirin Chewable) 81 mg PO DAILY [facility] Last Admin: 05/05/17 10:02 Dose: 81 mg Calcitriol (Rocaltrol) 0.25 mcg PO TTS [facility] Calcium Carbonate (Oscal) 500 mg PO BID [facility] Last Admin: 05/05/17 18:05 Dose: 500 mg Carvedilol (Coreg) 6.25 mg PO Q12 [facility] Last Admin: 05/05/17 21:00 Dose: 6.25 mg Cyanocobalamin (Vitamin B12 1000 Mcg/Ml Inj) 1,000 mcg IM DAILY [facility] Last Admin: 05/05/17 10:02 Dose: 1,000 mcg Diphenhydramine HCl (Benadryl) 25 mg PO Q8 PRN PRN Reason: Itching / Pruritus Epoetin Tom (Procrit) 10,000 unit IV TTS [facility] Epoetin Tom (Procrit) 4,000 unit IV TTS [facility] Ergocalciferol (Drisdol 50,000 Intl Units Cap) 1 cap PO Q7D [facility] Last Admin: 05/03/17 09:45 Dose: 1 cap Guaifenesin/Dextromethorphan (Robitussin Dm) 10 ml PO Q4H PRN PRN Reason: Cough and congestion Last Admin: 05/04/17 08:48 Dose: 10 ml Heparin Sodium (Porcine) (Heparin) 5,000 units SC Q12H [facility] Last Admin: 05/05/17 21:00 Dose: 5,000 units Heparin Sodium (Porcine) (Heparin) 4,700 units IVP TTS [facility] Last Admin: 05/04/17 11:06 Dose: 4,700 units Hydromorphone HCl (Dilaudid) 0.5 mg SC Q6H PRN PRN Reason: Pain, moderate (4-7) Last Admin: 05/05/17 16:15 Dose: 0.5 mg Vancomycin HCl 500 mg/ Sodium (Chloride) 100 mls @ 100 mls/hr IVPB TTS [facility] Last Admin: 05/04/17 11:07 Dose: 100 mls/hr Meropenem 500 mg/ Sodium (Chloride) 100 mls @ 200 mls/hr IVPB Q12H [facility] Last Admin: 05/05/17 18:04 Dose: 200 mls/hr Insulin Aspart (Novolog) 0 unit SC ACHS [facility] PRN Reason: Protocol Last Admin: 05/05/17 21:02 Dose: Not Given Insulin Detemir (Levemir) 8 unit SC [facility] Last Admin: 05/05/17 21:01 Dose: Not Given Isosorbide Mononitrate (Imdur) 60 mg PO DAILY [facility] Last Admin: 05/05/17 10:02 Dose: 60 mg Levetiracetam (Keppra) 750 mg PO BID [facility] Last Admin: 05/05/17 18:08 Dose: 750 mg Losartan Potassium (Cozaar) 25 mg PO DAILY [facility] Last Admin: 05/05/17 10:02 Dose: 25 mg Pantoprazole Sodium (Protonix Ec Tab) 40 mg PO DAILY [facility] Last Admin: 05/05/17 10:02 Dose: 40 mg Rosuvastatin Calcium (Crestor) 10 mg PO [facility] Last Admin: 05/05/17 21:00 Dose: 10 mg Valproate Sodium (Depakene Oral Soln) 250 mg PO QID [facility] Last Admin: 05/05/17 21:01 Dose: 250 mg Vitamin B Complex/Vit C/Folic Acid (Nephro-Courtney) 1 tab PO 0800 [facility] Last Admin: 05/05/17 08:56 Dose: 1 tab - Labs Labs: 05/04/17 09:57 05/04/17 07:16 Assessment and Plan (1) CVA (cerebral vascular accident) Status: Suspected (2) Abdominal discomfort Status: Acute (3) Accelerated essential hypertension Status: Acute (4) Asthma Status: Acute (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
[2017-05-06] MEDS: Albuterol-Ipratrop 3 mg / 0.5 (3 ml) UD INH SCH ×4 (01:28→20:11)
[2017-05-06] MEDS: HYDROmorphone 0.5 mg/0.5 ml ISec SC PRN ×4 (03:02→22:50)
[2017-05-06] MEDS: Meropenem 500 MG in Sodium Chloride 0.9% 100 ML IVPB SCH (05:21)
[2017-05-06] MEDS: Multivitamin Vitamin B Complex (Nephro-Vite) Tab PO SCH (08:59)
[2017-05-06] MEDS: Valproic Acid 250 mg/5 ml UD Cup PO SCH ×4 (09:34→22:17)
[2017-05-06] MEDS: levETIRAcetam 100 mg/ml (5ml) Oral Syringe PO SCH ×2 (09:35→17:49)
[2017-05-06] MEDS: (Novolog) Insulin Aspart, Recombinant 100 u/ml 10 ml vial SC SCH ×4 (09:36→22:00)
[2017-05-06] MEDS: Pantoprazole 40 mg EC Tab PO SCH (09:36)
--- NOTE | 2017-05-06 12:39 | CP.PCM.PN ---
Subjective - Date & Time of Evaluation Date of Evaluation: 05/06/17 Time of Evaluation: 12:38 - Subjective Subjective: Follow up Nephrology Consultation Note Assessment: Stable Diabetic chronic Kidney Disease (E11.22) Hypertensive Chronic Kidney Disease (I12.0) End stage renal disease (N18.6) dependence on hemodialysis (Z99.2) (TTS) via permacath Anemia (D64.9), Hyperphosphatemia (E83.39), Secondary Hyperparathyroidism (E21.1 ), HTN (I12.0) Infective endocarditis Plan: Will plan for HD saturday as per TTS schedule No acute need today. Continue with Nephrovite 1 tab/day. PRBC as needed for anemia[place] [address] [place], last Hb 7.8 Continue with phos binders, check phos level Added 0.25 mcg calcitriol with dialysis. Last PTH level 639 BP control with meds as ordered. Patient not on RAAS skyler hence added losartan Glycemic control, Dialysis consistent diet Further work up/management as per primary team Dose meds/antibiotics for ESRD status. Avoid fleets enema/magnesium based laxatives. Thanks for allowing me to participate in care of your patient. Will follow patient with you. Please call if any Qs Dr Eric Temple Office: [phone] Subjective: Noted events overnight. Patients feels okay. Denies chest pain, palpitation, shortness of breath. No urinary complaints Physical Examination: General Appearance: Comfortable, in no acute respiratory distress, co- operative. Vitals reviewed and noted as below Lungs: Normal respiratory rate/effort. Breath sounds bilateral equal and clear Heart: Normal rate. s1s2 normal. No rub or gallop. Extremities: no edema. s/p b/l BKA Neurological: Patient is alert, awake and oriented to person, place and time. No focal deficit. Strength bilateral appropriate and equal Skin: Warm and dry. Normal turgor. No rash. Palpitation: Normal elasticity for age Abdomen: Abdomen is soft. Bowel sounds +. There is no abdominal tenderness, no guarding/rigidity or organomegaly : kidney or bladder not palpable Access: permacath Labs/imaging reviewed. Past medical history, past surgical history, family history, social history, allergy reviewed Objective - Vital Signs/Intake and Output Vital Signs (last 24 hours): Temp Pulse Resp BP Pulse Ox 97.9 F 74 18 150/72 100 05/06/17 07:35 05/06/17 07:35 05/06/17 07:35 05/06/17 07:35 05/06/17 07:35 Intake and Output: 05/06/17 05/06/17 06:59 18:59 Intake Total 150 Balance 150 - Medications Medications: Current Medications Acetaminophen (Tylenol 325mg Tab) 650 mg PO Q6 PRN PRN Reason: Fever >100.4 F Albuterol/Ipratropium (Duoneb 3 Mg/0.5 Mg (3 Ml) Ud) 3 ml INH RQ6 [facility] Last Admin: 05/06/17 07:18 Dose: Not Given Amlodipine Besylate (Norvasc) 10 mg PO DAILY [facility] Last Admin: 05/06/17 09:36 Dose: 10 mg Aspirin (Aspirin Chewable) 81 mg PO DAILY [facility] Last Admin: 05/06/17 09:35 Dose: 81 mg Calcitriol (Rocaltrol) 0.25 mcg PO TTS [facility] Calcium Carbonate (Oscal) 500 mg PO BID [facility] Last Admin: 05/06/17 09:34 Dose: 500 mg Carvedilol (Coreg) 6.25 mg PO Q12 [facility] Last Admin: 05/06/17 09:36 Dose: 6.25 mg Cyanocobalamin (Vitamin B12 1000 Mcg/Ml Inj) 1,000 mcg IM DAILY [facility] Last Admin: 05/06/17 09:36 Dose: 1,000 mcg Diphenhydramine HCl (Benadryl) 25 mg PO Q8 PRN PRN Reason: Itching / Pruritus Epoetin Tom (Procrit) 10,000 unit IV TTS [facility] Ergocalciferol (Drisdol 50,000 Intl Units Cap) 1 cap PO Q7D [facility] Last Admin: 05/03/17 09:45 Dose: 1 cap Guaifenesin/Dextromethorphan (Robitussin Dm) 10 ml PO Q4H PRN PRN Reason: Cough and congestion Last Admin: 05/04/17 08:48 Dose: 10 ml Heparin Sodium (Porcine) (Heparin) 5,000 units SC Q12H [facility] Last Admin: 05/06/17 09:36 Dose: 5,000 units Heparin Sodium (Porcine) (Heparin) 4,700 units IVP TTS [facility] Last Admin: 05/04/17 11:06 Dose: 4,700 units Hydromorphone HCl (Dilaudid) 0.5 mg SC Q6H PRN PRN Reason: Pain, moderate (4-7) Last Admin: 05/06/17 09:29 Dose: 0.5 mg Vancomycin HCl 500 mg/ Sodium (Chloride) 100 mls @ 100 mls/hr IVPB TTS [facility] Last Admin: 05/04/17 11:07 Dose: 100 mls/hr Meropenem 500 mg/ Sodium (Chloride) 100 mls @ 200 mls/hr IVPB Q12H [facility] Last Admin: 05/06/17 05:21 Dose: 200 mls/hr Insulin Aspart (Novolog) 0 unit SC ACHS [facility] PRN Reason: Protocol Last Admin: 05/06/17 12:18 Dose: Not Given Insulin Detemir (Levemir) 8 unit SC HS [facility] Last Admin: 05/05/17 21:01 Dose: Not Given Isosorbide Mononitrate (Imdur) 60 mg PO DAILY [facility] Last Admin: 05/06/17 09:35 Dose: 60 mg Levetiracetam (Keppra) 750 mg PO BID [facility] Last Admin: 05/06/17 09:35 Dose: 750 mg Losartan Potassium (Cozaar) 25 mg PO DAILY [facility] Last Admin: 05/06/17 09:36 Dose: 25 mg Pantoprazole Sodium (Protonix Ec Tab) 40 mg PO DAILY [facility] Last Admin: 05/06/17 09:36 Dose: 40 mg Rosuvastatin Calcium (Crestor) 10 mg PO HS [facility] Last Admin: 05/05/17 21:00 Dose: 10 mg Valproate Sodium (Depakene Oral Soln) 250 mg PO QID [facility] Last Admin: 05/06/17 09:34 Dose: 250 mg Vitamin B Complex/Vit C/Folic Acid (Nephro-Courtney) 1 tab PO 0800 [facility] Last Admin: 05/06/17 08:59 Dose: 1 tab - Labs Labs: 05/04/17 09:57 05/04/17 07:16
--- NOTE | 2017-05-06 17:29 | CP.PCM.PN ---
Subjective - Date & Time of Evaluation Date of Evaluation: 05/06/17 Time of Evaluation: 17:26 - Subjective Subjective: pt feels beter less cough no fever iv came out discused with iv consult will get it with dialysis Objective - Vital Signs/Intake and Output Vital Signs (last 24 hours): Temp Pulse Resp BP Pulse Ox 98.4 F 81 20 111/67 100 05/06/17 15:00 05/06/17 15:00 05/06/17 15:00 05/06/17 15:00 05/06/17 15:00 Intake and Output: 05/06/17 05/06/17 06:59 18:59 Intake Total 150 300 Balance 150 300 - Medications Medications: Current Medications Acetaminophen (Tylenol 325mg Tab) 650 mg PO Q6 PRN PRN Reason: Fever >100.4 F Albuterol/Ipratropium (Duoneb 3 Mg/0.5 Mg (3 Ml) Ud) 3 ml INH RQ6 [facility] Last Admin: 05/06/17 13:32 Dose: Not Given Amlodipine Besylate (Norvasc) 10 mg PO DAILY [facility] Last Admin: 05/06/17 09:36 Dose: 10 mg Aspirin (Aspirin Chewable) 81 mg PO DAILY [facility] Last Admin: 05/06/17 09:35 Dose: 81 mg Calcitriol (Rocaltrol) 0.25 mcg PO TTS [facility] Calcium Carbonate (Oscal) 500 mg PO BID [facility] Last Admin: 05/06/17 09:34 Dose: 500 mg Carvedilol (Coreg) 6.25 mg PO Q12 [facility] Last Admin: 05/06/17 09:36 Dose: 6.25 mg Cyanocobalamin (Vitamin B12 1000 Mcg/Ml Inj) 1,000 mcg IM DAILY [facility] Last Admin: 05/06/17 09:36 Dose: 1,000 mcg Diphenhydramine HCl (Benadryl) 25 mg PO Q8 PRN PRN Reason: Itching / Pruritus Epoetin Tom (Procrit) 10,000 unit IV TTS [facility] Ergocalciferol (Drisdol 50,000 Intl Units Cap) 1 cap PO Q7D [facility] Last Admin: 05/03/17 09:45 Dose: 1 cap Guaifenesin/Dextromethorphan (Robitussin Dm) 10 ml PO Q4H PRN PRN Reason: Cough and congestion Last Admin: 05/04/17 08:48 Dose: 10 ml Heparin Sodium (Porcine) (Heparin) 4,700 units IVP TTS [facility] Last Admin: 05/04/17 11:06 Dose: 4,700 units Hydromorphone HCl (Dilaudid) 0.5 mg SC Q6H PRN PRN Reason: Pain, moderate (4-7) Last Admin: 05/06/17 15:58 Dose: 0.5 mg Vancomycin HCl 500 mg/ Sodium (Chloride) 100 mls @ 100 mls/hr IVPB TTS [facility] Last Admin: 05/04/17 11:07 Dose: 100 mls/hr Cefazolin Sodium 2,000 mg/ (Sodium Chloride) 50 mls @ 100 mls/hr IVPB TTS [facility] Insulin Aspart (Novolog) 0 unit SC ACHS [facility] PRN Reason: Protocol Last Admin: 05/06/17 12:18 Dose: Not Given Insulin Detemir (Levemir) 8 unit SC [facility] Last Admin: 05/05/17 21:01 Dose: Not Given Isosorbide Mononitrate (Imdur) 60 mg PO DAILY [facility] Last Admin: 05/06/17 09:35 Dose: 60 mg Levetiracetam (Keppra) 750 mg PO BID [facility] Last Admin: 05/06/17 09:35 Dose: 750 mg Losartan Potassium (Cozaar) 25 mg PO DAILY [facility] Last Admin: 05/06/17 09:36 Dose: 25 mg Pantoprazole Sodium (Protonix Ec Tab) 40 mg PO DAILY [facility] Last Admin: 05/06/17 09:36 Dose: 40 mg Rosuvastatin Calcium (Crestor) 10 mg PO [facility] Last Admin: 05/05/17 21:00 Dose: 10 mg Valproate Sodium (Depakene Oral Soln) 250 mg PO QID [facility] Last Admin: 05/06/17 13:40 Dose: 250 mg Vitamin B Complex/Vit C/Folic Acid (Nephro-Courtney) 1 tab PO 0800 [facility] Last Admin: 05/06/17 08:59 Dose: 1 tab - Labs Labs: 05/04/17 09:57 05/04/17 07:16 - Constitutional Appears: Non-toxic - Head Exam Head Exam: NORMAL INSPECTION - Eye Exam Eye Exam: Conjunctival injection - ENT Exam ENT Exam: Mucous Membranes Moist - Neck Exam Neck Exam: Full ROM - Respiratory Exam Respiratory Exam: Decreased Breath Sounds - Cardiovascular Exam Cardiovascular Exam: REGULAR RHYTHM - GI/Abdominal Exam GI & Abdominal Exam: Soft, Normal Bowel Sounds - Rectal Exam Rectal Exam: NORMAL INSPECTION - Back Exam Back Exam: CVA tenderness (L) - Neurological Exam Neurological Exam: Alert, Awake, Oriented x3 - Psychiatric Exam Psychiatric exam: Normal Mood - Skin Skin Exam: Pallor Assessment and Plan - Assessment and Plan (Free Text) Assessment: pnumonia dm ESRF Plan: CONT PER ORDERS
--- NOTE | 2017-05-06 19:09 | CP.PCM.PN ---
Subjective - Date & Time of Evaluation Date of Evaluation: 05/06/17 Time of Evaluation: 19:07 - Subjective Subjective: Improving, feeling better, IV is out and Flagyl is replacing Merrem, Vancomycin is given with IV Dialysis. Less cough, Pneumonia is improving and there is no Fever, Vital Signs are normal. His serum Glucose is fluctuating. He is interactive and talking. Hemodialysis is due on T,T,S. Objective - Vital Signs/Intake and Output Vital Signs (last 24 hours): Temp Pulse Resp BP Pulse Ox 98.4 F 81 20 111/67 100 05/06/17 15:00 05/06/17 15:00 05/06/17 15:00 05/06/17 15:00 05/06/17 15:00 Intake and Output: 05/06/17 05/07/17 18:59 06:59 Intake Total 300 Balance 300 - Medications Medications: Current Medications Acetaminophen (Tylenol 325mg Tab) 650 mg PO Q6 PRN PRN Reason: Fever >100.4 F Albuterol/Ipratropium (Duoneb 3 Mg/0.5 Mg (3 Ml) Ud) 3 ml INH RQ6 [facility] Last Admin: 05/06/17 13:32 Dose: Not Given Amlodipine Besylate (Norvasc) 10 mg PO DAILY [facility] Last Admin: 05/06/17 09:36 Dose: 10 mg Aspirin (Aspirin Chewable) 81 mg PO DAILY [facility] Last Admin: 05/06/17 09:35 Dose: 81 mg Calcitriol (Rocaltrol) 0.25 mcg PO TTS [facility] Calcium Carbonate (Oscal) 500 mg PO BID [facility] Last Admin: 05/06/17 17:49 Dose: 500 mg Carvedilol (Coreg) 6.25 mg PO Q12 [facility] Last Admin: 05/06/17 09:36 Dose: 6.25 mg Cyanocobalamin (Vitamin B12 1000 Mcg/Ml Inj) 1,000 mcg IM DAILY [facility] Last Admin: 05/06/17 09:36 Dose: 1,000 mcg Diphenhydramine HCl (Benadryl) 25 mg PO Q8 PRN PRN Reason: Itching / Pruritus Epoetin Tom (Procrit) 10,000 unit IV TTS [facility] Ergocalciferol (Drisdol 50,000 Intl Units Cap) 1 cap PO Q7D [facility] Last Admin: 05/03/17 09:45 Dose: 1 cap Guaifenesin/Dextromethorphan (Robitussin Dm) 10 ml PO Q4H PRN PRN Reason: Cough and congestion Last Admin: 05/04/17 08:48 Dose: 10 ml Heparin Sodium (Porcine) (Heparin) 4,700 units IVP TTS [facility] Last Admin: 05/04/17 11:06 Dose: 4,700 units Hydromorphone HCl (Dilaudid) 0.5 mg SC Q6H PRN PRN Reason: Pain, moderate (4-7) Last Admin: 05/06/17 15:58 Dose: 0.5 mg Vancomycin HCl 500 mg/ Sodium (Chloride) 100 mls @ 100 mls/hr IVPB TTS [facility] Last Admin: 05/04/17 11:07 Dose: 100 mls/hr Cefazolin Sodium 2,000 mg/ (Sodium Chloride) 50 mls @ 100 mls/hr IVPB TTS [facility] Insulin Aspart (Novolog) 0 unit SC ACHS [facility] PRN Reason: Protocol Last Admin: 05/06/17 17:30 Dose: 1 unit Insulin Detemir (Levemir) 8 unit SC [facility] Last Admin: 05/05/17 21:01 Dose: Not Given Isosorbide Mononitrate (Imdur) 60 mg PO DAILY [facility] Last Admin: 05/06/17 09:35 Dose: 60 mg Levetiracetam (Keppra) 750 mg PO BID [facility] Last Admin: 05/06/17 17:49 Dose: 750 mg Losartan Potassium (Cozaar) 25 mg PO DAILY [facility] Last Admin: 05/06/17 09:36 Dose: 25 mg Pantoprazole Sodium (Protonix Ec Tab) 40 mg PO DAILY [facility] Last Admin: 05/06/17 09:36 Dose: 40 mg Rosuvastatin Calcium (Crestor) 10 mg PO HS [facility] Last Admin: 05/05/17 21:00 Dose: 10 mg Valproate Sodium (Depakene Oral Soln) 250 mg PO QID [facility] Last Admin: 05/06/17 17:49 Dose: 250 mg Vitamin B Complex/Vit C/Folic Acid (Nephro-Courtney) 1 tab PO 0800 [facility] Last Admin: 05/06/17 08:59 Dose: 1 tab - Labs Labs: 05/04/17 09:57 09/02/17 07:16 Assessment and Plan (1) CVA (cerebral vascular accident) Status: Suspected (2) Abdominal discomfort Status: Acute (3) Accelerated essential hypertension Status: Acute (4) Asthma Status: Acute (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
[2017-05-06] MEDS: Insulin Detemir 100 units/ml Vial (Levemir) SC SCH (22:18)
[2017-05-07] MEDS: Albuterol-Ipratrop 3 mg / 0.5 (3 ml) UD INH SCH ×3 (01:35→13:04)
[2017-05-07] MEDS: HYDROmorphone 0.5 mg/0.5 ml ISec SC PRN ×2 (04:53→11:31)
[2017-05-07] MEDS ORDERED: Epoetin Alfa 10,000 unit/ml Dialysis IV SCH ×2 (06:00→11:45)
[2017-05-07] MEDS: (Novolog) Insulin Aspart, Recombinant 100 u/ml 10 ml vial SC SCH ×2 (07:46→17:01)
[2017-05-07] MEDS: Multivitamin Vitamin B Complex (Nephro-Vite) Tab PO SCH (07:46)
[2017-05-07 08:36] VITALS: RESP 18
--- NOTE | 2017-05-07 08:40 | CP.PCM.PN ---
Subjective - Date & Time of Evaluation Date of Evaluation: 05/06/17 Time of Evaluation: 14:10 - Subjective Subjective: Cough improved No fevers or chills No CP or SOB Awake, alert Objective - Vital Signs/Intake and Output Vital Signs (last 24 hours): Temp Pulse Resp BP Pulse Ox 98.6 F 75 18 113/75 100 05/07/17 07:35 05/07/17 07:35 05/07/17 07:35 05/07/17 07:35 05/07/17 07:35 Intake and Output: 05/07/17 05/07/17 06:59 18:59 Intake Total 340 Balance 340 - Medications Medications: Current Medications Acetaminophen (Tylenol 325mg Tab) 650 mg PO Q6 PRN PRN Reason: Fever >100.4 F Albuterol/Ipratropium (Duoneb 3 Mg/0.5 Mg (3 Ml) Ud) 3 ml INH RQ6 [facility] Last Admin: 05/07/17 07:40 Dose: Not Given Amlodipine Besylate (Norvasc) 10 mg PO DAILY [facility] Last Admin: 05/06/17 09:36 Dose: 10 mg Aspirin (Aspirin Chewable) 81 mg PO DAILY [facility] Last Admin: 05/06/17 09:35 Dose: 81 mg Calcitriol (Rocaltrol) 0.25 mcg PO TTS [facility] Calcium Carbonate (Oscal) 500 mg PO BID [facility] Last Admin: 05/06/17 17:49 Dose: 500 mg Carvedilol (Coreg) 6.25 mg PO Q12 [facility] Last Admin: 05/06/17 22:20 Dose: 6.25 mg Cyanocobalamin (Vitamin B12 1000 Mcg/Ml Inj) 1,000 mcg IM DAILY [facility] Last Admin: 05/06/17 09:36 Dose: 1,000 mcg Diphenhydramine HCl (Benadryl) 25 mg PO Q8 PRN PRN Reason: Itching / Pruritus Epoetin Tom (Procrit) 10,000 unit IV TTS [facility] Ergocalciferol (Drisdol 50,000 Intl Units Cap) 1 cap PO Q7D [facility] Last Admin: 05/03/17 09:45 Dose: 1 cap Guaifenesin/Dextromethorphan (Robitussin Dm) 10 ml PO Q4H PRN PRN Reason: Cough and congestion Last Admin: 05/04/17 08:48 Dose: 10 ml Heparin Sodium (Porcine) (Heparin) 4,700 units IVP TTS [facility] Last Admin: 05/04/17 11:06 Dose: 4,700 units Hydromorphone HCl (Dilaudid) 0.5 mg SC Q6H PRN PRN Reason: Pain, moderate (4-7) Last Admin: 05/07/17 04:53 Dose: 0.5 mg Vancomycin HCl 500 mg/ Sodium (Chloride) 100 mls @ 100 mls/hr IVPB TTS [facility] Last Admin: 05/04/17 11:07 Dose: 100 mls/hr Cefazolin Sodium 2,000 mg/ (Sodium Chloride) 50 mls @ 100 mls/hr IVPB TTS [facility] Insulin Aspart (Novolog) 0 unit SC ACHS [facility] PRN Reason: Protocol Last Admin: 05/07/17 07:46 Dose: 1 unit Insulin Detemir (Levemir) 8 unit SC HS [facility] Last Admin: 05/06/17 22:18 Dose: 8 unit Isosorbide Mononitrate (Imdur) 60 mg PO DAILY [facility] Last Admin: 05/06/17 09:35 Dose: 60 mg Levetiracetam (Keppra) 750 mg PO BID [facility] Last Admin: 05/06/17 17:49 Dose: 750 mg Losartan Potassium (Cozaar) 25 mg PO DAILY [facility] Last Admin: 05/06/17 09:36 Dose: 25 mg Pantoprazole Sodium (Protonix Ec Tab) 40 mg PO DAILY [facility] Last Admin: 05/06/17 09:36 Dose: 40 mg Rosuvastatin Calcium (Crestor) 10 mg PO HS [facility] Last Admin: 05/06/17 22:17 Dose: 10 mg Valproate Sodium (Depakene Oral Soln) 250 mg PO QID [facility] Last Admin: 05/06/17 22:17 Dose: 250 mg Vitamin B Complex/Vit C/Folic Acid (Nephro-Courtney) 1 tab PO 0800 [facility] Last Admin: 05/07/17 07:46 Dose: 1 tab - Labs Labs: 05/04/17 09:57 05/04/17 07:16 - Constitutional Appears: No Acute Distress - Head Exam Head Exam: ATRAUMATIC, NORMAL INSPECTION, NORMOCEPHALIC - Eye Exam Eye Exam: absent: Normal appearance - ENT Exam ENT Exam: Mucous Membranes Moist - Neck Exam Neck Exam: Full ROM, Normal Inspection - Cardiovascular Exam Cardiovascular Exam: REGULAR RHYTHM, +S1, +S2, Murmur - GI/Abdominal Exam GI & Abdominal Exam: Normal Bowel Sounds - Extremities Exam Extremities Exam: absent: Normal Inspection (B/L BKA) - Neurological Exam Neurological Exam: Alert, Awake - Psychiatric Exam Psychiatric exam: Depressed Assessment and Plan - Assessment and Plan (Free Text) Assessment: 1. 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 - Repeat echo 04/27/17: directly viewed by me: Normal LVEF, mod LVH, mod-sev pulm HTN, Grade 2 diastolic dysfunction Mild AI, MR,TR -No longer seen is the R. atrial mass which was probably attached to R. HD catheter. More likely thrombus although infection was a possibility. >Patient has following indications for anticoagulation 1. Recent large mass attached to HD catheter in RA (likely thrombus) cannot exclude vegetation 2. Hx of aflutter/fib paroxysmal > Neuro input agrees with AC > Need to eval GI bleed risk > Fecal occult 05/03/17; negative > long discussion with PMD: we feel given prior GIB recurrent: AC will be at high risk: can reconsider if risk ir reduced. EEG: encepholopathic pattern: no seizures Cough: CPOD/PNA/Bronchitis: no fevers, abx and pulmonary supportive care. ESRD on HD Health care associated PNA on ABX wide a wide spectrum of coverage HTN is chronic and stable on current medications DM - Brittle on insulin PVD s/p b/l BKA CAD s/p CABG and PCI now non revascularizable, ranexa and nitrates, high dose statin
--- NOTE | 2017-05-07 09:29 | CP.PCM.PN ---
Subjective - Date & Time of Evaluation Date of Evaluation: 05/07/17 Time of Evaluation: 09:26 - Subjective Subjective: pt seen and examined comfortable no cough refused rehab will have dialysis today then go home Objective - Vital Signs/Intake and Output Vital Signs (last 24 hours): Temp Pulse Resp BP Pulse Ox 98.6 F 75 18 113/75 100 05/07/17 07:35 05/07/17 07:35 05/07/17 07:35 05/07/17 07:35 05/07/17 07:35 Intake and Output: 05/07/17 05/07/17 06:59 18:59 Intake Total 340 Balance 340 - Medications Medications: Current Medications Acetaminophen (Tylenol 325mg Tab) 650 mg PO Q6 PRN PRN Reason: Fever >100.4 F Albuterol/Ipratropium (Duoneb 3 Mg/0.5 Mg (3 Ml) Ud) 3 ml INH RQ6 [facility] Last Admin: 05/07/17 07:40 Dose: Not Given Amlodipine Besylate (Norvasc) 10 mg PO DAILY [facility] Last Admin: 05/06/17 09:36 Dose: 10 mg Aspirin (Aspirin Chewable) 81 mg PO DAILY [facility] Last Admin: 05/06/17 09:35 Dose: 81 mg Calcitriol (Rocaltrol) 0.25 mcg PO TTS [facility] Calcium Carbonate (Oscal) 500 mg PO BID [facility] Last Admin: 05/06/17 17:49 Dose: 500 mg Carvedilol (Coreg) 6.25 mg PO Q12 [facility] Last Admin: 05/06/17 22:20 Dose: 6.25 mg Cyanocobalamin (Vitamin B12 1000 Mcg/Ml Inj) 1,000 mcg IM DAILY [facility] Last Admin: 05/06/17 09:36 Dose: 1,000 mcg Diphenhydramine HCl (Benadryl) 25 mg PO Q8 PRN PRN Reason: Itching / Pruritus Epoetin Tom (Procrit) 10,000 unit IV TTS [facility] Ergocalciferol (Drisdol 50,000 Intl Units Cap) 1 cap PO Q7D [facility] Last Admin: 05/03/17 09:45 Dose: 1 cap Guaifenesin/Dextromethorphan (Robitussin Dm) 10 ml PO Q4H PRN PRN Reason: Cough and congestion Last Admin: 05/04/17 08:48 Dose: 10 ml Heparin Sodium (Porcine) (Heparin) 4,700 units IVP TTS [facility] Last Admin: 05/04/17 11:06 Dose: 4,700 units Hydromorphone HCl (Dilaudid) 0.5 mg SC Q6H PRN PRN Reason: Pain, moderate (4-7) Last Admin: 05/07/17 04:53 Dose: 0.5 mg Vancomycin HCl 500 mg/ Sodium (Chloride) 100 mls @ 100 mls/hr IVPB TTS [facility] Last Admin: 05/04/17 11:07 Dose: 100 mls/hr Cefazolin Sodium 2,000 mg/ (Sodium Chloride) 50 mls @ 100 mls/hr IVPB TTS [facility] Insulin Aspart (Novolog) 0 unit SC ACHS [facility] PRN Reason: Protocol Last Admin: 05/07/17 07:46 Dose: 1 unit Insulin Detemir (Levemir) 8 unit SC [facility] Last Admin: 05/06/17 22:18 Dose: 8 unit Isosorbide Mononitrate (Imdur) 60 mg PO DAILY [facility] Last Admin: 05/06/17 09:35 Dose: 60 mg Levetiracetam (Keppra) 750 mg PO BID [facility] Last Admin: 05/06/17 17:49 Dose: 750 mg Losartan Potassium (Cozaar) 25 mg PO DAILY [facility] Last Admin: 05/06/17 09:36 Dose: 25 mg Pantoprazole Sodium (Protonix Ec Tab) 40 mg PO DAILY [facility] Last Admin: 05/06/17 09:36 Dose: 40 mg Rosuvastatin Calcium (Crestor) 10 mg PO HS [facility] Last Admin: 05/06/17 22:17 Dose: 10 mg Valproate Sodium (Depakene Oral Soln) 250 mg PO QID [facility] Last Admin: 05/06/17 22:17 Dose: 250 mg Vitamin B Complex/Vit C/Folic Acid (Nephro-Courtney) 1 tab PO 0800 [facility] Last Admin: 05/07/17 07:46 Dose: 1 tab - Labs Labs: 05/04/17 09:57 05/04/17 07:16 - Head Exam Head Exam: ATRAUMATIC - Eye Exam Eye Exam: Conjunctival injection - ENT Exam ENT Exam: Mucous Membranes Moist - Neck Exam Neck Exam: Full ROM - Respiratory Exam Respiratory Exam: Clear to Ausculation Bilateral - Cardiovascular Exam Cardiovascular Exam: REGULAR RHYTHM - GI/Abdominal Exam GI & Abdominal Exam: Soft, Normal Bowel Sounds - Rectal Exam Rectal Exam: NORMAL INSPECTION - Back Exam Back Exam: CVA tenderness (L) - Neurological Exam Neurological Exam: Alert, Awake, Oriented x3 - Psychiatric Exam Psychiatric exam: Normal Affect - Skin Skin Exam: Pallor Assessment and Plan - Assessment and Plan (Free Text) Assessment: improved ESRF DMID CAD CHF S/PENDOCARITIS Plan: WILL D/C HOME TODAY WITH HOME HEALTH CAR F/U BY ME
[2017-05-07] MEDS ORDERED: EPOETIN ALFA 4,000 UNIT/ML ML Dialysis IV SCH (10:00)
--- NOTE | 2017-05-07 10:05 | CP.PCM.PN ---
Subjective - Date & Time of Evaluation Date of Evaluation: 05/07/17 Time of Evaluation: 10:02 - Subjective Subjective: On HD Depressed No CP Mild cough improved No fever Objective - Vital Signs/Intake and Output Vital Signs (last 24 hours): Temp Pulse Resp BP Pulse Ox 98.6 F 75 18 113/75 100 05/07/17 07:35 05/07/17 07:35 05/07/17 07:35 05/07/17 07:35 05/07/17 07:35 Intake and Output: 05/07/17 05/07/17 06:59 18:59 Intake Total 340 Balance 340 - Medications Medications: Current Medications Acetaminophen (Tylenol 325mg Tab) 650 mg PO Q6 PRN PRN Reason: Fever >100.4 F Albuterol/Ipratropium (Duoneb 3 Mg/0.5 Mg (3 Ml) Ud) 3 ml INH RQ6 [facility] Last Admin: 05/07/17 07:40 Dose: Not Given Amlodipine Besylate (Norvasc) 10 mg PO DAILY [facility] Last Admin: 05/06/17 09:36 Dose: 10 mg Aspirin (Aspirin Chewable) 81 mg PO DAILY [facility] Last Admin: 05/06/17 09:35 Dose: 81 mg Calcitriol (Rocaltrol) 0.25 mcg PO TTS [facility] Calcium Carbonate (Oscal) 500 mg PO BID [facility] Last Admin: 05/06/17 17:49 Dose: 500 mg Carvedilol (Coreg) 6.25 mg PO Q12 [facility] Last Admin: 05/06/17 22:20 Dose: 6.25 mg Cyanocobalamin (Vitamin B12 1000 Mcg/Ml Inj) 1,000 mcg IM DAILY [facility] Last Admin: 05/06/17 09:36 Dose: 1,000 mcg Diphenhydramine HCl (Benadryl) 25 mg PO Q8 PRN PRN Reason: Itching / Pruritus Epoetin Tom (Procrit) 10,000 unit IV TTS [facility] Ergocalciferol (Drisdol 50,000 Intl Units Cap) 1 cap PO Q7D [facility] Last Admin: 05/03/17 09:45 Dose: 1 cap Guaifenesin/Dextromethorphan (Robitussin Dm) 10 ml PO Q4H PRN PRN Reason: Cough and congestion Last Admin: 05/04/17 08:48 Dose: 10 ml Heparin Sodium (Porcine) (Heparin) 4,700 units IVP TTS [facility] Last Admin: 05/04/17 11:06 Dose: 4,700 units Hydromorphone HCl (Dilaudid) 0.5 mg SC Q6H PRN PRN Reason: Pain, moderate (4-7) Last Admin: 05/07/17 04:53 Dose: 0.5 mg Vancomycin HCl 500 mg/ Sodium (Chloride) 100 mls @ 100 mls/hr IVPB TTS [facility] Last Admin: 05/04/17 11:07 Dose: 100 mls/hr Cefazolin Sodium 2,000 mg/ (Sodium Chloride) 50 mls @ 100 mls/hr IVPB TTS [facility] Insulin Aspart (Novolog) 0 unit SC ACHS [facility] PRN Reason: Protocol Last Admin: 05/07/17 07:46 Dose: 1 unit Insulin Detemir (Levemir) 8 unit SC HS [facility] Last Admin: 05/06/17 22:18 Dose: 8 unit Isosorbide Mononitrate (Imdur) 60 mg PO DAILY [facility] Last Admin: 05/06/17 09:35 Dose: 60 mg Levetiracetam (Keppra) 750 mg PO BID [facility] Last Admin: 05/06/17 17:49 Dose: 750 mg Losartan Potassium (Cozaar) 25 mg PO DAILY [facility] Last Admin: 05/06/17 09:36 Dose: 25 mg Moxifloxacin HCl (Avelox) 400 mg PO DAILY [facility] Pantoprazole Sodium (Protonix Ec Tab) 40 mg PO DAILY [facility] Last Admin: 05/06/17 09:36 Dose: 40 mg Rosuvastatin Calcium (Crestor) 10 mg PO HS [facility] Last Admin: 05/06/17 22:17 Dose: 10 mg Valproate Sodium (Depakene Oral Soln) 250 mg PO QID [facility] Last Admin: 05/06/17 22:17 Dose: 250 mg Vitamin B Complex/Vit C/Folic Acid (Nephro-Courtney) 1 tab PO 0800 [facility] Last Admin: 05/07/17 07:46 Dose: 1 tab - Labs Labs: 05/04/17 09:57 05/04/17 07:16 - Constitutional Appears: No Acute Distress, Chronically Ill - Head Exam Head Exam: ATRAUMATIC, NORMAL INSPECTION, NORMOCEPHALIC - Eye Exam Eye Exam: absent: Normal appearance - ENT Exam ENT Exam: Mucous Membranes Moist, Normal Oropharynx - Neck Exam Neck Exam: Full ROM, Normal Inspection - Respiratory Exam Respiratory Exam: Rhonchi, NORMAL BREATHING PATTERN. absent: Wheezes - Cardiovascular Exam Cardiovascular Exam: REGULAR RHYTHM, +S1, +S2, Murmur - GI/Abdominal Exam GI & Abdominal Exam: Normal Bowel Sounds. absent: Organomegaly - Extremities Exam Extremities Exam: absent: Normal Inspection (b/L BKA) - Neurological Exam Neurological Exam: Alert, Awake, Oriented x3 - Psychiatric Exam Psychiatric exam: Depressed - Skin Skin Exam: Normal Color, Warm Assessment and Plan - Assessment and Plan (Free Text) Assessment: 1. 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 - Repeat echo 04/27/17: directly viewed by me: Normal LVEF, mod LVH, mod-sev pulm HTN, Grade 2 diastolic dysfunction Mild AI, MR,TR -No longer seen is the R. atrial mass which was probably attached to R. HD catheter. More likely thrombus although infection was a possibility. Currently on Rx for PNA/bronchitis and suspected IE with po ABX and vanco with HD >Patient has following indications for anticoagulation 1. Recent large mass attached to HD catheter in RA (likely thrombus) cannot exclude vegetation 2. Hx of aflutter/fib paroxysmal > Neuro input agrees with AC > Need to eval GI bleed risk > Fecal occult 05/03/17; negative > long discussion with PMD: we feel given prior GIB recurrent: AC will be at high risk: can reconsider if risk ir reduced. EEG: encepholopathic pattern: no seizures Cough: CPOD/PNA/Bronchitis: no fevers, abx and pulmonary supportive care. ESRD on HD Health care associated PNA on ABX wide a wide spectrum of coverage HTN is chronic and stable on current medications DM - Brittle on insulin PVD s/p b/l BKA CAD s/p CABG and PCI now non revascularizable, ranexa and nitrates, high dose statin cardiac stable for d/c
[2017-05-07] MEDS: guaiFENesin DM 200 mg-20 mg/10 ml UD PO PRN (10:09)
[2017-05-07] MEDS: Valproic Acid 250 mg/5 ml UD Cup PO SCH ×3 (10:40→17:01)
[2017-05-07] MEDS: Pantoprazole 40 mg EC Tab PO SCH (10:41)
--- NOTE | 2017-05-07 11:15 | CP.PCM.PN ---
Subjective - Date & Time of Evaluation Date of Evaluation: 05/07/17 Time of Evaluation: 10:35 - Subjective Subjective: Currently on dialysis C/o feeling SOB No respiratory distress noted Objective - Vital Signs/Intake and Output Vital Signs (last 24 hours): Temp Pulse Resp BP Pulse Ox 98.2 F 93 H 18 122/89 100 05/07/17 09:45 05/07/17 09:45 05/07/17 09:45 05/07/17 10:00 05/07/17 09:45 Intake and Output: 05/07/17 05/07/17 06:59 18:59 Intake Total 340 Balance 340 - Medications Medications: Current Medications Acetaminophen (Tylenol 325mg Tab) 650 mg PO Q6 PRN PRN Reason: Fever >100.4 F Albuterol/Ipratropium (Duoneb 3 Mg/0.5 Mg (3 Ml) Ud) 3 ml INH RQ6 [facility] Last Admin: 05/07/17 07:40 Dose: Not Given Amlodipine Besylate (Norvasc) 10 mg PO DAILY [facility] Last Admin: 05/07/17 10:41 Dose: Not Given Aspirin (Aspirin Chewable) 81 mg PO DAILY [facility] Last Admin: 05/07/17 10:40 Dose: Not Given Calcitriol (Rocaltrol) 0.25 mcg PO TTS [facility] Calcium Carbonate (Oscal) 500 mg PO BID [facility] Last Admin: 05/07/17 10:41 Dose: Not Given Carvedilol (Coreg) 6.25 mg PO Q12 [facility] Last Admin: 05/07/17 10:40 Dose: Not Given Cyanocobalamin (Vitamin B12 1000 Mcg/Ml Inj) 1,000 mcg IM DAILY [facility] Last Admin: 05/06/17 09:36 Dose: 1,000 mcg Diphenhydramine HCl (Benadryl) 25 mg PO Q8 PRN PRN Reason: Itching / Pruritus Epoetin Tom (Procrit) 10,000 unit IV TTS [facility] Ergocalciferol (Drisdol 50,000 Intl Units Cap) 1 cap PO Q7D [facility] Last Admin: 05/03/17 09:45 Dose: 1 cap Guaifenesin/Dextromethorphan (Robitussin Dm) 10 ml PO Q4H PRN PRN Reason: Cough and congestion Last Admin: 05/07/17 10:09 Dose: 10 ml Hydromorphone HCl (Dilaudid) 0.5 mg SC Q6H PRN PRN Reason: Pain, moderate (4-7) Last Admin: 05/07/17 04:53 Dose: 0.5 mg Vancomycin HCl 500 mg/ Sodium (Chloride) 100 mls @ 100 mls/hr IVPB TTS [facility] Last Admin: 05/04/17 11:07 Dose: 100 mls/hr Cefazolin Sodium 2,000 mg/ (Sodium Chloride) 50 mls @ 100 mls/hr IVPB TTS [facility] Insulin Aspart (Novolog) 0 unit SC ACHS [facility] PRN Reason: Protocol Last Admin: 05/07/17 07:46 Dose: 1 unit Insulin Detemir (Levemir) 8 unit SC [facility] Last Admin: 05/06/17 22:18 Dose: 8 unit Isosorbide Mononitrate (Imdur) 60 mg PO DAILY [facility] Last Admin: 05/07/17 10:41 Dose: Not Given Levetiracetam (Keppra) 750 mg PO BID [facility] Last Admin: 05/06/17 17:49 Dose: 750 mg Losartan Potassium (Cozaar) 25 mg PO DAILY [facility] Last Admin: 05/07/17 10:40 Dose: Not Given Moxifloxacin HCl (Avelox) 400 mg PO DAILY [facility] Last Admin: 05/07/17 10:40 Dose: Not Given Pantoprazole Sodium (Protonix Ec Tab) 40 mg PO DAILY [facility] Last Admin: 05/07/17 10:41 Dose: Not Given Rosuvastatin Calcium (Crestor) 10 mg PO [facility] Last Admin: 05/06/17 22:17 Dose: 10 mg Valproate Sodium (Depakene Oral Soln) 250 mg PO QID [facility] Last Admin: 05/07/17 10:40 Dose: Not Given Vitamin B Complex/Vit C/Folic Acid (Nephro-Courtney) 1 tab PO 0800 [facility] Last Admin: 05/07/17 07:46 Dose: 1 tab - Labs Labs: 05/04/17 09:57 05/04/17 07:16 - Respiratory Exam Additional comments: Bi basilaral crackles No wheezes - Cardiovascular Exam Cardiovascular Exam: REGULAR RHYTHM - Extremities Exam Additional comments: B/L BKA Assessment and Plan - Assessment and Plan (Free Text) Assessment: ESRD Volume overload Rt atrial thrombus CAd IDDM,PVD Plan: UF goal is increased to 3 Kg BP on dialysis 190/89 Will re evaluate for extra dialysis tomorrow
--- NOTE | 2017-05-07 12:05 | CON ---
HISTORY OF PRESENT ILLNESS: This is a 36-year-old male with a history of diabetes, chronic renal failure, heart failure, bypass surgery. The patient came in with shortness of breath and weakness, but was found to have . The patient came and advised admission. The patient is a nonsmoker and nondrinker. PHYSICAL EXAMINATION: GENERAL: The patient is awake, . VITAL SIGNS: Temperature 101, pulse is 90. HEENT: Within normal limits. NECK: Supple. CHEST: Symmetrical. HEART: Tachycardic. ABDOMEN: Soft. EXTREMITIES: No edema. Chest x-ray, cardiomegaly, congestion, possible infiltrate. IMPRESSION: The patient suffers from heart failure, atrial fibrillation, pneumonia, sepsis. PLAN: The patient is to get bedrest, supportive care, IV antibiotics, bronchodilators. Kimberly Liao MD
--- NOTE | 2017-05-07 13:51 | CP.PCM.PN ---
Subjective - Date & Time of Evaluation Date of Evaluation: 05/07/17 Time of Evaluation: 08:00 - Subjective Subjective: all cultures thus far neg cont iv rx for 6-8 weeks with HD Objective - Vital Signs/Intake and Output Vital Signs (last 24 hours): Temp Pulse Resp BP Pulse Ox 99.4 F 94 H 18 154/8 H 100 05/07/17 13:20 05/07/17 13:20 05/07/17 13:20 05/07/17 13:20 05/07/17 13:20 Intake and Output: 05/07/17 05/07/17 06:59 18:59 Intake Total 340 Balance 340 - Medications Medications: Current Medications Acetaminophen (Tylenol 325mg Tab) 650 mg PO Q6 PRN PRN Reason: Fever >100.4 F Albuterol/Ipratropium (Duoneb 3 Mg/0.5 Mg (3 Ml) Ud) 3 ml INH RQ6 [facility] Last Admin: 05/07/17 13:04 Dose: Not Given Amlodipine Besylate (Norvasc) 10 mg PO DAILY [facility] Last Admin: 05/07/17 10:41 Dose: Not Given Aspirin (Aspirin Chewable) 81 mg PO DAILY [facility] Last Admin: 05/07/17 10:40 Dose: Not Given Calcitriol (Rocaltrol) 0.25 mcg PO TTS [facility] Calcium Carbonate (Oscal) 500 mg PO BID [facility] Last Admin: 05/07/17 10:41 Dose: Not Given Carvedilol (Coreg) 6.25 mg PO Q12 [facility] Last Admin: 05/07/17 10:40 Dose: Not Given Cyanocobalamin (Vitamin B12 1000 Mcg/Ml Inj) 1,000 mcg IM DAILY [facility] Last Admin: 05/06/17 09:36 Dose: 1,000 mcg Diphenhydramine HCl (Benadryl) 25 mg PO Q8 PRN PRN Reason: Itching / Pruritus Epoetin Tom (Procrit) 10,000 unit IV TTS [facility] Last Admin: 05/07/17 11:46 Dose: 10,000 unit Ergocalciferol (Drisdol 50,000 Intl Units Cap) 1 cap PO Q7D [facility] Last Admin: 05/03/17 09:45 Dose: 1 cap Guaifenesin/Dextromethorphan (Robitussin Dm) 10 ml PO Q4H PRN PRN Reason: Cough and congestion Last Admin: 05/07/17 10:09 Dose: 10 ml Heparin Sodium (Porcine) (Heparin) 4,700 units IVP TTS [facility] Last Admin: 05/07/17 13:06 Dose: 4,700 units Hydromorphone HCl (Dilaudid) 0.5 mg SC Q6H PRN PRN Reason: Pain, moderate (4-7) Last Admin: 05/07/17 11:31 Dose: 0.5 mg Vancomycin HCl 500 mg/ Sodium (Chloride) 100 mls @ 100 mls/hr IVPB TTS [facility] Last Admin: 05/07/17 11:39 Dose: 100 mls/hr Cefazolin Sodium 2,000 mg/ (Sodium Chloride) 50 mls @ 100 mls/hr IVPB TTS [facility] Last Admin: 05/07/17 13:04 Dose: 100 mls/hr Insulin Aspart (Novolog) 0 unit SC ACHS [facility] PRN Reason: Protocol Last Admin: 05/07/17 07:46 Dose: 1 unit Insulin Detemir (Levemir) 8 unit SC [facility] Last Admin: 05/06/17 22:18 Dose: 8 unit Isosorbide Mononitrate (Imdur) 60 mg PO DAILY [facility] Last Admin: 05/07/17 10:41 Dose: Not Given Levetiracetam (Keppra) 750 mg PO BID [facility] Last Admin: 05/06/17 17:49 Dose: 750 mg Losartan Potassium (Cozaar) 25 mg PO DAILY [facility] Last Admin: 05/07/17 10:40 Dose: Not Given Moxifloxacin HCl (Avelox) 400 mg PO DAILY [facility] Last Admin: 05/07/17 10:40 Dose: Not Given Pantoprazole Sodium (Protonix Ec Tab) 40 mg PO DAILY [facility] Last Admin: 05/07/17 10:41 Dose: Not Given Rosuvastatin Calcium (Crestor) 10 mg PO HS [facility] Last Admin: 05/06/17 22:17 Dose: 10 mg Valproate Sodium (Depakene Oral Soln) 250 mg PO QID [facility] Last Admin: 05/07/17 10:40 Dose: Not Given Vitamin B Complex/Vit C/Folic Acid (Nephro-Courtney) 1 tab PO 0800 [facility] Last Admin: 05/07/17 07:46 Dose: 1 tab - Labs Labs: 05/04/17 09:57 05/04/17 07:16 - Constitutional Appears: Non-toxic, Cachectic, Chronically Ill - Head Exam Head Exam: NORMOCEPHALIC - ENT Exam ENT Exam: Mucous Membranes Dry - Neck Exam Neck Exam: absent: Lymphadenopathy - Respiratory Exam Respiratory Exam: Decreased Breath Sounds - Cardiovascular Exam Cardiovascular Exam: REGULAR RHYTHM - GI/Abdominal Exam GI & Abdominal Exam: Distended, Soft Assessment and Plan (1) CVA (cerebral vascular accident) Status: Suspected (2) Diabetes mellitus with cardiac complication Status: Acute (3) Renal failure associated with renal vascular disease Status: Acute
[2017-05-07] MEDS: levETIRAcetam 100 mg/ml (5ml) Oral Syringe PO SCH ×2 (14:39→17:01)
[2017-05-07 15:38] VITALS: BP 145/79; PULSE 95; TEMP 98.9
--- NOTE | 2017-05-07 15:52 | CP.PCM.PN ---
Subjective - Date & Time of Evaluation Date of Evaluation: 05/07/17 Time of Evaluation: 15:52 - Subjective Subjective: PT SEEN AND EVALUATED BY DR. BELL; CLEARED FOR D/C HOME TODAY. PT REFUSING ANÍBAL. RX GIVEN FOR NEW MEDS. ALL D/C INSTRUCTIONS AND F/U DISCUSSED WITH PT AND SISTER AT BEDSIDE. TRANSPORTATION HOME ARRANGED BY SW. NO FURTHER ORDERS. Objective - Vital Signs/Intake and Output Vital Signs (last 24 hours): Temp Pulse Resp BP Pulse Ox 98.9 F 95 H 18 145/79 100 05/07/17 15:34 05/07/17 15:34 05/07/17 15:34 05/07/17 15:34 05/07/17 15:34 Intake and Output: 05/07/17 05/07/17 06:59 18:59 Intake Total 340 Balance 340 - Medications Medications: Current Medications Acetaminophen (Tylenol 325mg Tab) 650 mg PO Q6 PRN PRN Reason: Fever >100.4 F Amlodipine Besylate (Norvasc) 10 mg PO DAILY [facility] Last Admin: 05/07/17 10:41 Dose: Not Given Aspirin (Aspirin Chewable) 81 mg PO DAILY [facility] Last Admin: 05/07/17 10:40 Dose: Not Given Calcitriol (Rocaltrol) 0.25 mcg PO TTS [facility] Calcium Carbonate (Oscal) 500 mg PO BID [facility] Last Admin: 05/07/17 10:41 Dose: Not Given Carvedilol (Coreg) 6.25 mg PO Q12 [facility] Last Admin: 05/07/17 10:40 Dose: Not Given Cyanocobalamin (Vitamin B12 1000 Mcg/Ml Inj) 1,000 mcg IM DAILY [facility] Last Admin: 05/06/17 09:36 Dose: 1,000 mcg Diphenhydramine HCl (Benadryl) 25 mg PO Q8 PRN PRN Reason: Itching / Pruritus Epoetin Tom (Procrit) 10,000 unit IV TTS [facility] Last Admin: 05/07/17 11:46 Dose: 10,000 unit Ergocalciferol (Drisdol 50,000 Intl Units Cap) 1 cap PO Q7D [facility] Last Admin: 05/03/17 09:45 Dose: 1 cap Guaifenesin/Dextromethorphan (Robitussin Dm) 10 ml PO Q4H PRN PRN Reason: Cough and congestion Last Admin: 05/07/17 10:09 Dose: 10 ml Heparin Sodium (Porcine) (Heparin) 4,700 units IVP TTS [facility] Last Admin: 05/07/17 13:06 Dose: 4,700 units Hydromorphone HCl (Dilaudid) 0.5 mg SC Q6H PRN PRN Reason: Pain, moderate (4-7) Last Admin: 05/07/17 11:31 Dose: 0.5 mg Vancomycin HCl 500 mg/ Sodium (Chloride) 100 mls @ 100 mls/hr IVPB TTS [facility] Last Admin: 05/07/17 11:39 Dose: 100 mls/hr Cefazolin Sodium 2,000 mg/ (Sodium Chloride) 50 mls @ 100 mls/hr IVPB TTS [facility] Last Admin: 05/07/17 13:04 Dose: 100 mls/hr Insulin Aspart (Novolog) 0 unit SC ACHS [facility] PRN Reason: Protocol Last Admin: 05/07/17 07:46 Dose: 1 unit Insulin Detemir (Levemir) 8 unit SC [facility] Last Admin: 05/06/17 22:18 Dose: 8 unit Isosorbide Mononitrate (Imdur) 60 mg PO DAILY [facility] Last Admin: 05/07/17 10:41 Dose: Not Given Levetiracetam (Keppra) 750 mg PO BID [facility] Last Admin: 05/07/17 14:39 Dose: 750 mg Losartan Potassium (Cozaar) 25 mg PO DAILY [facility] Last Admin: 05/07/17 10:40 Dose: Not Given Moxifloxacin HCl (Avelox) 400 mg PO DAILY [facility] Last Admin: 05/07/17 10:40 Dose: Not Given Pantoprazole Sodium (Protonix Ec Tab) 40 mg PO DAILY [facility] Last Admin: 05/07/17 10:41 Dose: Not Given Rosuvastatin Calcium (Crestor) 10 mg PO HS [facility] Last Admin: 05/06/17 22:17 Dose: 10 mg Valproate Sodium (Depakene Oral Soln) 250 mg PO QID [facility] Last Admin: 05/07/17 14:39 Dose: 250 mg Vitamin B Complex/Vit C/Folic Acid (Nephro-Courtney) 1 tab PO 0800 [facility] Last Admin: 05/07/17 07:46 Dose: 1 tab - Labs Labs: 05/04/17 09:57 09/02/17 07:16
--- NOTE | 2017-05-07 21:34 | CP.PCM.PN ---
Subjective - Date & Time of Evaluation Date of Evaluation: 05/07/17 Time of Evaluation: 16:15 - Subjective Subjective: Patient did well and his condition has stabilized. His Bacterial cultures are all negative, his cardiac function has improved. He has to continue his Antibiotics for 6 to [address] Lind. He is to continue his conservative Anticoagulation for Atrial Flutter and Right side of the heart. He refused to be transferred to a Care Home for Rehab and preferred to be discharged home. He is getting his Hemodialysis for his ESRD and his Blood Glucose is controlled. Objective - Vital Signs/Intake and Output Vital Signs (last 24 hours): Temp Pulse Resp BP Pulse Ox 98.9 F 95 H 18 145/79 100 05/07/17 15:34 05/07/17 15:34 05/07/17 15:34 05/07/17 15:34 05/07/17 15:34 - Labs Labs: 05/04/17 09:57 05/04/17 07:16 Assessment and Plan (1) CVA (cerebral vascular accident) Status: Ruled-out (2) Abdominal discomfort Status: Acute (3) Accelerated essential hypertension Status: Resolved (4) Asthma Status: Acute (5) Blind Status: Acute (6) Diabetes mellitus with cardiac complication Status: Chronic (7) Seizure Status: Chronic (8) Renal failure associated with renal vascular disease Status: Acute (9) Renal failure Status: Chronic (10) Aphasia Status: Resolved
== END 2017-05-07 17:30 | disposition home or self-care (01) | DRG 584 ==
LOC: C.6T 17:46
PROVIDERS: ADMIT Internal Medicine; ATTEND Internal Medicine
PROC: 5A1D60Z (ICD-10-PCS; principal; 2017-04-27)
DX: A41.9 Sepsis, unspecified organism (principal); I33.0 Acute and subacute infective endocarditis; G93.40 Encephalopathy, unspecified; I13.2 Hypertensive heart and chronic kidney disease with heart failure and with stage 5 chronic kidney disease, or end stage renal disease; N18.6 End stage renal disease; I27.2 Other secondary pulmonary hypertension; J18.9 Pneumonia, unspecified organism; J44.0 Chronic obstructive pulmonary disease with (acute) lower respiratory infection; I50.9 Heart failure, unspecified; E11.649 Type 2 diabetes mellitus with hypoglycemia without coma; E11.22 Type 2 diabetes mellitus with diabetic chronic kidney disease; E11.51 Type 2 diabetes mellitus with diabetic peripheral angiopathy without gangrene; I48.92 Unspecified atrial flutter; D64.9 Anemia, unspecified; N25.81 Secondary hyperparathyroidism of renal origin; E03.9 Hypothyroidism, unspecified; H54.8 Legal blindness, as defined in USA; I48.0 Paroxysmal atrial fibrillation; I25.10 Atherosclerotic heart disease of native coronary artery without angina pectoris; Z99.2 Dependence on renal dialysis; Z87.01 Personal history of pneumonia (recurrent); Z79.4 Long term (current) use of insulin; Z79.01 Long term (current) use of anticoagulants; K29.70 Gastritis, unspecified, without bleeding; Z89.511 Acquired absence of right leg below knee; F02.80 Dementia in other diseases classified elsewhere, unspecified severity, without behavioral disturbance, psychotic disturbance, mood disturbance, and anxiety; I51.3 Intracardiac thrombosis, not elsewhere classified; Z79.82 Long term (current) use of aspirin; Z89.512 Acquired absence of left leg below knee; Z95.1 Presence of aortocoronary bypass graft

== ENCOUNTER 2017-05-17 14:34 | Inpatient (IN) | payer OTHER ==
[2017-05-17 14:34] VITALS: PULSE 66; BMI 33.3
--- NOTE | 2017-05-17 15:40 | RAD ---
PROCEDURE: CHEST RADIOGRAPH, 1 VIEW HISTORY: chest pain COMPARISON: 04/29/2027 FINDINGS: LUNGS: vague patchy opacity in the lateral right lung base, improved compared to prior examination. No other abnormal opacity. PLEURA: No pneumothorax or pleural fluid seen. CARDIOVASCULAR: Sternotomy wires. Right tunneled central venous dialysis catheter. OSSEOUS STRUCTURES: No significant abnormalities. VISUALIZED UPPER ABDOMEN: Normal. OTHER FINDINGS: None. IMPRESSION: Mild opacity at lateral right lung base, nonspecific. No other acute abnormality.
[2017-05-17 16:31] LABS: BASO # 0.1 K/uL (0.0-0.2); BASO % 0.9 % (0.0-2.0); EOS # 0.5 K/uL (0.0-0.7); EOS % 3.4 % (0.0-4.0); HEMATOCRIT 24.5 % (35.0-51.0); LYMPH # 1.4 K/uL (1.0-4.3); LYMPH % 10.3 % (20.0-40.0); MEAN CELL VOLUME 92.2 fL (80.0-94.0); MEAN CORPUSCULAR HEMOGLOBIN 29.1 pg (27.0-31.0); MEAN CORPUSCULAR HGB CONC 31.5 g/dL (33.0-37.0); MEAN PLATELET VOLUME 8.9 fL (7.2-11.7); MONO % 6.8 % (0.0-10.0); NRBC % 0.1 % (0.0-2.0); RED CELL DISTRIBUTION WIDTH 16.8 % (11.5-14.5)
[2017-05-17 16:41] LABS: POTASSIUM 5.3 mmol/L (3.6-5.2)
[2017-05-17 16:43] LABS: ALB/GLOB RATIO 0.8 (1.0-2.1); BILIRUBIN,TOTAL 0.8 mg/dL (0.2-1.3); TOTAL PROTEIN 7.8 g/dL (6.3-8.3)
--- NOTE | 2017-05-17 16:43 | C.PDOC ---
History Of Present Illness 36 y/o male with Hx of end stage renal disease presents to ED with complaint of sob, chest pain and mild cough since yesterday. Patient denies fever,chills, n/ v or any other complaints at this time. Time Seen by Provider: 05/17/17 15:19 Chief Complaint (Nursing): Chest Pain History Per: Patient History/Exam Limitations: no limitations Onset/Duration Of Symptoms: Days Current Symptoms Are (Timing): Still Present Past Medical History Reviewed: Historical Data, Nursing Documentation, Vital Signs Vital Signs: Last Vital Signs Temp 98.2 F 05/24/17 07:30 Pulse 69 05/24/17 07:30 Resp 18 05/24/17 07:30 BP 162/78 H 05/24/17 07:30 Pulse Ox 100 05/24/17 07:30 - Medical History PMH: Alzheimer's Disease, Anemia, Anxiety, Arthritis, Asthma, Atrial Fibrillation, Bronchitis, CAD, Cardia Arrhythmia, CHF, COPD, CVA, Depression, Diabetes, Deep Vein Thrombosis, Gastritis, Gastrointestinal Ulcer, Gall Bladder Disease, HTN, Hypercholesterolemia, Hypothyroidism, Pneumonia, End Stage Renal Disease, Chronic Kidney Disease, Seizures Surgical History: CABG (12/2009), Cholecystectomy (2011), Coronary Stent - [facility] Procedures ABDOMINAL WALL SINOGRAM (12/31/13) C.A.T. SCAN OF ABDOMEN (10/31/13) CENTRAL VENOUS CATHETER PLACEMENT WITH GUIDANCE (02/10/15) DILATE R ANT TIB ART W DRUG-ELUT INTRALUM, PERC (08/12/15) DILATION OF LEFT FEMORAL ARTERY, PERCUTANEOUS APPROACH (07/04/16) DILATION OF RIGHT FEMORAL ARTERY, PERCUTANEOUS APPROACH (08/12/15) DILATION OF RIGHT POPLITEAL ARTERY, PERCUTANEOUS APPROACH (08/12/15) DX ULTRASOUND-HEART (01/05/13) ENTERAL INFUSION OF CONCENTRATED NUT. SUBSTANCES (06/28/13) EXCIS DEBRIDE OF WOUND, INFECT, OR BURN (08/03/14) EXCISION OF STOMACH, ENDO, DIAGN (03/03/17) EXTIRPATION OF MATTER FROM L FEM ART, PERC APPROACH (07/04/16) EXTIRPATION OF MATTER FROM R FEM ART, PERC APPROACH (08/12/15) EXTIRPATION OF MATTER FROM R POPL ART, PERC APPROACH (08/12/15) FLUOROSCOPY OF L LOW EXTREM ART USING L OSM CONTRAST (08/12/15) FLUOROSCOPY OF R LOW EXTREM ART USING L OSM CONTRAST (08/12/15) FREE SKIN GRAFT NEC (08/03/14) HEAD SOFT TISS X-RAY NEC (04/15/13) HEMODIALYSIS (04/28/15) INCIS W REM OF FORIEGN BODY OR DEV FROM SKIN & SUBCUT TISSUE (08/08/13) INSERTION OF INFUSION DEV INTO R SUBCLAV VEIN, PERC APPROACH (01/19/16) INSERTION OF INFUSION DEV INTO SUP VENA CAVA, PERC APPROACH (02/20/17) INSPECTION OF UPPER INTESTINAL TRACT, ENDO (03/03/17) INTRODUCE OF OTH THROMBOLYTIC INTO PERIPH ART, PERC APPROACH (08/12/15) LAPAROSCOPIC CHOLECYSTECTOMY (09/21/13) LOC EXC LES METATAR/TAR (06/01/14) PACKED CELL TRANSFUSION (06/01/14) PERCUTAN LIVER ASPIRAT (12/31/13) PERFORMANCE OF URINARY FILTRATION, MULTIPLE (04/26/17) PERFORMANCE OF URINARY FILTRATION, SINGLE (12/18/16) SKIN & SUBQ INCISION NEC (10/24/14) TETANUS TOXOID ADMINIST (06/13/14) TRANSFUSE NONAUT RED BLOOD CELLS IN PERIPH VEIN, PERC (04/09/17) ULTRASONOGRAPHY OF RIGHT AND LEFT HEART (04/09/17) ULTRASONOGRAPHY OF SUPERIOR VENA CAVA, GUIDANCE (02/20/17) VENOUS CATHETERIZATION FOR RENAL DIALYSIS (08/08/13) VENOUS CATHETERIZATION NEC (04/30/13) Family History: States: No Known Family Hx - Social History Hx Tobacco Use: No Hx Alcohol Use: No Hx Substance Use: No - Immunization History Hx Tetanus Toxoid Vaccination: Yes Hx Influenza Vaccination: No Hx Pneumococcal Vaccination: Yes Review Of Systems Except As Marked, All Systems Reviewed And Found Negative. Cardiovascular: Positive for: Chest Pain Respiratory: Positive for: Cough, Shortness of Breath Physical Exam - Physical Exam Appears: Non-toxic, No Acute Distress Skin: Normal Color, Warm, Dry, No Rash Head: Atraumatic, Normacephalic Eye(s): bilateral: Normal Inspection Oral Mucosa: Moist Neck: Normal ROM, Supple Chest: Symmetrical Cardiovascular: Rhythm Regular, No Murmur Respiratory: No Decreased Breath Sounds, Rales (mild at right base), No Rhonchi , No Wheezing Gastrointestinal/Abdominal: Soft, No Tenderness, No Guarding, No Rebound Neurological/Psych: Oriented x3 ED Course And Treatment - Laboratory Results Result Diagrams: 05/24/17 08:00 05/23/17 13:58 ECG: Interpreted By Me, Viewed By Me ECG Rhythm: Sinus Rhythm, Nonspecific Changes Rate From EC (bpm) O2 Sat by Pulse Oximetry: 100 (ra) Pulse Ox Interpretation: Normal Disposition - Disposition Disposition: HOSPITALIZED Disposition Time: 07:00 Condition: FAIR - Clinical Impression Clinical Impression: NSTEMI (non-ST elevated myocardial infarction), Pneumonia - Scribe Statement The provider has reviewed the documentation as recorded by the Scribe Esdras Tsai All medical record entries made by the Marlonibrigoberto were at my direction and personally dictated by me. I have reviewed the chart and agree that the record accurately reflects my personal performance of the history, physical exam, medical decision making, and the department course for this patient. I have also personally directed, reviewed, and agree with the discharge instructions and disposition.
[2017-05-17 16:44] LABS: CALCIUM 8.8 mg/dl (8.6-10.4)
[2017-05-17 17:01] LABS: TROPONIN I 0.881 ng/mL (0.00-0.120)
[2017-05-17] MEDS ORDERED: Piperacill/Tazo 3.375gm in Dex 3.375 GM/50 ML BAG IVPB STA (17:08)
[2017-05-17] MEDS ORDERED: Enoxaparin 150 mg Syringe SC STA (17:10)
[2017-05-17] MEDS ORDERED: Enoxaparin 80 mg Syringe ONE (17:36)
[2017-05-17] MEDS ORDERED: Piperacillin/Tazobact 3.375 gm 100 ML IVPB ONE (17:54)
[2017-05-17] MEDS ORDERED: Vancomycin 1 GM 1 GM/250 ML BAG IVPB ONE (18:13)
[2017-05-17] MEDS ORDERED: HYDROmorphone 1 mg/ml ISec IVP PRN (21:47)
[2017-05-17] MEDS ORDERED: Insulin Detemir 100 units/ml Vial (Levemir) SC SCH (22:00)
[2017-05-17] MEDS: Ergocalciferol 50,000 Intl Units Cap PO SCH (23:17)
[2017-05-18] MEDS: Piperacillin/Tazobact 3.375 GM in Sodium Chloride 100 ML IVPB SCH ×3 (01:40→19:36)
[2017-05-18] MEDS: Multivitamin Vitamin B Complex (Nephro-Vite) Tab PO SCH (09:24)
[2017-05-18] MEDS: Pantoprazole 40 mg EC Tab PO SCH (09:25)
[2017-05-18] MEDS ORDERED: EPOETIN ALFA 4,000 UNIT/ML ML Dialysis IV SCH (10:00)
[2017-05-18] MEDS ORDERED: Epoetin Alfa 10,000 unit/ml Dialysis IV ONE ×2 (12:33→16:00)
[2017-05-18] MEDS: (Novolin R) Insulin Human Regular 100 units/ml vial SC SCH ×2 (12:41→17:55)
--- NOTE | 2017-05-18 13:34 | CP.PCM.HP ---
History of Present Illness - History of Present Illness History of Present Illness: pt came in to er for chest pain pressure and sob and cough Present on Admission - Present on Admission Any Indicators Present on Admission: Yes Review of Systems - Review of Systems Systems not reviewed;Unavailable: Acuity of Condition - Constitutional Constitutional: Fatigue - EENT Eyes: Blind Spots Nose/Mouth/Throat: As Per HPI - Cardiovascular Cardiovascular: Chest Pain at Rest, Orthopnea - Respiratory Respiratory: Cough, Dyspnea - Gastrointestinal Gastrointestinal: As Per HPI - Genitourinary Genitourinary: As Per HPI - Reproductive: Male Additional comments: ambiguas genitalia - Musculoskeletal Additional comments: bilateral amputation - Integumentary Integumentary: As Per HPI - Neurological Neurological: Loss of Vision - Psychiatric Psychiatric: Depression - Endocrine Additional Comments: dm - Hematologic/Lymphatic Additional comments: severe aneamia Past Patient History - Infectious Disease Hx of Infectious Diseases: None - Tetanus Immunizations Tetanus Immunization: >10 years Ago - Past Medical History & Family History Past Medical History?: Yes - Past Social History Smoking Status: Never Smoked - CARDIAC Hx Cardiac Disorders: Yes Hx Atrial Fibrillation: Yes Hx Cardia Arrhythmia: Yes Hx Congestive Heart Failure: Yes Hx Hypercholesterolemia: Yes Hx Hypertension: Yes - PULMONARY Hx Respiratory Disorders: Yes Hx Asthma: Yes Hx Bronchitis: Yes Hx Chronic Obstructive Pulmonary Disease (COPD): Yes Hx Pneumonia: Yes - NEUROLOGICAL Hx Neurological Disorder: Yes Hx Alzheimer's Disease: Yes Hx Seizures: Yes - HEENT Hx HEENT Problems: Yes Hx Blind: Yes (legally blind) Hx Cataracts: Yes - RENAL Hx Chronic Kidney Disease: Yes Hx Dialysis: Yes () Type of Dialysis Access: right SC permacath Date of Last Dialysis Treatment: 05/16/17 - ENDOCRINE/METABOLIC Hx Endocrine Disorders: Yes Hx Diabetes Mellitus Type 1: Yes Hx Hypothyroidism: Yes - HEMATOLOGICAL/ONCOLOGICAL Hx Blood Disorders: Yes Hx Anemia: Yes - INTEGUMENTARY Hx Dermatological Problems: Yes Other/Comment: scabs on arms,hands and thigh area - MUSCULOSKELETAL/RHEUMATOLOGICAL Hx Musculoskeletal Disorders: Yes Hx Falls: No Other/Comment: Bilateral BKA - GASTROINTESTINAL Hx Gastrointestinal Disorders: Yes Hx Gall Bladder Disease: Yes Hx Gastritis: Yes - GENITOURINARY/GYNECOLOGICAL Hx Genitourinary Disorders: No Hx Sexually Transmitted Disorders: No - PSYCHIATRIC Hx Psychophysiologic Disorder: No Hx Substance Use: No - SURGICAL HISTORY Hx Surgeries: Yes Hx Cholecystectomy: Yes (2011) 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/2009) Hx Coronary Stent: Yes Other/Comment: Bilateral BKA - ANESTHESIA Hx Anesthesia: Yes Hx Anesthesia Reactions: No Hx Malignant Hyperthermia: No Meds Allergies/Adverse Reactions: Allergies Allergy/AdvReac Type Severity Reaction Status Date / Time acetaminophen [From Percocet] Allergy RASH Verified 04/09/17 10:25 atenolol Allergy RASH Verified 04/09/17 10:25 digoxin Allergy RASH Verified 04/09/17 10:25 milk Allergy ITCHING Verified 04/09/17 10:25 morphine Allergy RASH Verified 04/09/17 10:28 oxycodone HCl [From Percocet] Allergy RASH Verified 04/09/17 10:25 Physical Exam - Constitutional Appears: In Acute Distress - Head Exam Head Exam: ATRAUMATIC - Eye Exam Eye Exam: Conjunctival injection - ENT Exam ENT Exam: Mucous Membranes Moist - Neck Exam Neck exam: Positive for: Full Rom - Respiratory Exam Respiratory Exam: Decreased Breath Sounds, Rales - Cardiovascular Exam Cardiovascular Exam: REGULAR RHYTHM - GI/Abdominal Exam GI & Abdominal Exam: Normal Bowel Sounds - Rectal Exam Rectal Exam: NORMAL INSPECTION - Extremities Exam Additional comments: bilateral amputation - Back Exam Back exam: CVA tenderness (L) - Neurological Exam Neurological exam: Oriented x3 - Psychiatric Exam Psychiatric exam: Depressed - Skin Skin Exam: Pallor Results - Vital Signs Recent Vital Signs: Last Vital Signs Temp 97.4 F L 05/18/17 07:00 Pulse 75 05/18/17 07:00 Resp 20 05/18/17 07:00 BP 163/89 H 05/18/17 07:00 Pulse Ox 100 05/18/17 07:00 - Labs Result Diagrams: 05/17/17 16:24 05/17/17 16:24 Labs: Laboratory Results - last 24 hr 05/17/17 05/17/17 05/18/17 22:46 23:13 00:45 POC Glucose (mg/dL) 176 H 187 H Total Creatine Kinase < 20 L CK-MB (Mass) 0.26 Troponin I, Quant 0.7280 H* 05/18/17 05/18/17 05/18/17 06:14 06:38 07:02 POC Glucose (mg/dL) 29 L* 66 88 Total Creatine Kinase CK-MB (Mass) Troponin I, Quant 05/18/17 05/18/17 09:36 11:39 POC Glucose (mg/dL) 157 H Total Creatine Kinase < 20 L CK-MB (Mass) 0.35 Troponin I, Quant 0.7060 H* Assessment & Plan - Assessment and Plan (Free Text) Assessment: ac chest pain cad sob copd dm esrf Plan: as per orders - Date & Time Date: 05/18/17 Time: 13:38
--- NOTE | 2017-05-18 22:23 | CP.PCM.CON ---
History of Present Illness - History of Present Illness History of Present Illness: 36 year old patient is brought to the ED for reports 1 episode of chest pain and SOB 24-48 hours prior. HD last No fevers, chills, no AMS, No current CP or resting dyspnea. This admission: labs show anemia, leukocytosis and mild hyperkalemia, minimal non-peaking troponin level. pmhx is extensive for 1. CAD s/p CABG with subsequent closure of vein grafts and then had RCA stent. Non-revascularizable coronaries. 2. HTN uncontrolled: labile 3. DM uncontrolled (non compliant with diet) 4. PAD s/p L. BKA abd R. ray amputation and chronic R. heel ulcer; hx of R.SFA/ popliteal angioplasty and AT stent with eventual R. BKA. 5. kleinfelters 6. ASX moderate pulmonary stenosis 7. hx of chronic pain, hx of liver abscess and infections 8. legally blind 9. Pain medication dependence 10. Hx of non-compliance with missed HD in the past 11. Episode of atrial flutter in the past: high risk for anticoagulation for anemia and GI bleed therefor had been on amiodarone 200mg daily and DAPT only. 12. Catheter related RA thrombus versus IE RX with abx and AC and resolved on subsequent echo images April 2017. SOCHX: No Tobacco, ETOH or DRUBG abuse PSHX: as above ROS: legally blind, B/K BKA Review of Systems - Review of Systems All systems: reviewed and no additional remarkable complaints except Past Patient History - Infectious Disease Hx of Infectious Diseases: None - Tetanus Immunizations Tetanus Immunization: >10 years Ago - Past Medical History & Family History Past Medical History?: Yes - Past Social History Smoking Status: Never Smoked - CARDIAC Hx Cardiac Disorders: Yes Hx Atrial Fibrillation: Yes Hx Cardia Arrhythmia: Yes Hx Congestive Heart Failure: Yes Hx Hypercholesterolemia: Yes Hx Hypertension: Yes - PULMONARY Hx Respiratory Disorders: Yes Hx Asthma: Yes Hx Bronchitis: Yes Hx Chronic Obstructive Pulmonary Disease (COPD): Yes Hx Pneumonia: Yes - NEUROLOGICAL Hx Neurological Disorder: Yes Hx Alzheimer's Disease: Yes Hx Seizures: Yes - HEENT Hx HEENT Problems: Yes Hx Blind: Yes (legally blind) Hx Cataracts: Yes - RENAL Hx Chronic Kidney Disease: Yes Hx Dialysis: Yes () Type of Dialysis Access: right SC permacath Date of Last Dialysis Treatment: 05/16/17 - ENDOCRINE/METABOLIC Hx Endocrine Disorders: Yes Hx Diabetes Mellitus Type 1: Yes Hx Hypothyroidism: Yes - HEMATOLOGICAL/ONCOLOGICAL Hx Blood Disorders: Yes Hx Anemia: Yes - INTEGUMENTARY Hx Dermatological Problems: Yes Other/Comment: scabs on arms,hands and thigh area - MUSCULOSKELETAL/RHEUMATOLOGICAL Hx Musculoskeletal Disorders: Yes Hx Falls: No Other/Comment: Bilateral BKA - GASTROINTESTINAL Hx Gastrointestinal Disorders: Yes Hx Gall Bladder Disease: Yes Hx Gastritis: Yes - GENITOURINARY/GYNECOLOGICAL Hx Genitourinary Disorders: No Hx Sexually Transmitted Disorders: No - PSYCHIATRIC Hx Psychophysiologic Disorder: No Hx Substance Use: No - SURGICAL HISTORY Hx Surgeries: Yes Hx Cholecystectomy: Yes (2011) 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/2009) Hx Coronary Stent: Yes Other/Comment: Bilateral BKA - ANESTHESIA Hx Anesthesia: Yes Hx Anesthesia Reactions: No Hx Malignant Hyperthermia: No Meds Allergies/Adverse Reactions: Allergies Allergy/AdvReac Type Severity Reaction Status Date / Time acetaminophen [From Percocet] Allergy RASH Verified 04/09/17 10:25 atenolol Allergy RASH Verified 04/09/17 10:25 digoxin Allergy RASH Verified 04/09/17 10:25 milk Allergy ITCHING Verified 04/09/17 10:25 morphine Allergy RASH Verified 04/09/17 10:28 oxycodone HCl [From Percocet] Allergy RASH Verified 04/09/17 10:25 - Medications Medications: Current Medications Acetaminophen (Tylenol 325mg Tab) 650 mg PO Q6 PRN PRN Reason: Fever >100.4 F Amlodipine Besylate (Norvasc) 10 mg PO DAILY [facility] Last Admin: 05/18/17 09:25 Dose: 10 mg Aspirin (Aspirin Chewable) 81 mg PO DAILY [facility] Last Admin: 05/18/17 09:27 Dose: Not Given Calcitriol (Rocaltrol) 0.25 mcg PO TTS [facility] Last Admin: 05/18/17 09:28 Dose: Not Given Calcium Carbonate (Oscal) 500 mg PO BID [facility] Last Admin: 05/18/17 20:59 Dose: 500 mg Carvedilol (Coreg) 6.25 mg PO Q12 [facility] Last Admin: 05/18/17 20:59 Dose: 6.25 mg Diphenhydramine HCl (Benadryl) 25 mg PO Q8 PRN PRN Reason: Allergy symptoms Docusate Sodium (Colace) 100 mg PO BID PRN PRN Reason: Constipation Ergocalciferol (Drisdol 50,000 Intl Units Cap) 1 cap PO Q7D [facility] Last Admin: 05/17/17 23:17 Dose: 1 cap Hydromorphone HCl (Dilaudid) 1 mg IVP Q4H PRN PRN Reason: Pain, moderate (4-7) Last Admin: 05/18/17 20:53 Dose: 1 mg Piperacillin Sod/Tazobactam (Sod 3.375 gm/ Sodium Chloride) 100 mls @ 200 mls/ hr IVPB Q8H [facility] Last Admin: 05/18/17 19:36 Dose: 200 mls/hr Insulin Human Regular (Novolin R) 0 unit SC ACHS [facility] PRN Reason: Protocol Last Admin: 05/18/17 17:55 Dose: Not Given Isosorbide Mononitrate (Imdur) 60 mg PO DAILY [facility] Last Admin: 05/18/17 09:25 Dose: 60 mg Pantoprazole Sodium (Protonix Ec Tab) 40 mg PO DAILY [facility] Last Admin: 05/18/17 09:25 Dose: 40 mg Rosuvastatin Calcium (Crestor) 10 mg PO HS [facility] Last Admin: 05/18/17 20:59 Dose: 10 mg Vitamin B Complex/Vit C/Folic Acid (Nephro-Courtney) 1 tab PO 0800 [facility] Last Admin: 05/18/17 09:24 Dose: 1 tab Physical Exam - Constitutional Appears: No Acute Distress, Chronically Ill - Head Exam Head Exam: ATRAUMATIC, NORMAL INSPECTION, NORMOCEPHALIC - Eye Exam Eye Exam: absent: Normal appearance - ENT Exam ENT Exam: Mucous Membranes Moist, Normal Oropharynx - Neck Exam Neck exam: Positive for: Full Rom - Respiratory Exam Respiratory Exam: Clear to Auscultation Bilateral, NORMAL BREATHING PATTERN. absent: Chest Wall Tenderness, Rales, Rhonchi, Wheezes - Cardiovascular Exam Cardiovascular Exam: REGULAR RHYTHM, +S1, +S2, Systolic Murmur. absent: JVD - GI/Abdominal Exam GI & Abdominal Exam: Normal Bowel Sounds, Soft. absent: Tenderness - Extremities Exam Extremities exam: Negative for: normal inspection (b/l BKA) - Neurological Exam Neurological exam: Alert, Oriented x3 - Psychiatric Exam Psychiatric exam: Normal Affect, Normal Mood - Skin Skin Exam: Normal Color, Warm Results - Vital Signs Recent Vital Signs: Last Vital Signs Temp 97.3 F L 05/18/17 17:20 Pulse 78 05/18/17 21:04 Resp 18 05/18/17 21:04 BP 110/61 05/18/17 21:04 Pulse Ox 100 05/18/17 17:20 - Labs Result Diagrams: 05/17/17 16:24 05/17/17 16:24 Labs: Laboratory Results - last 24 hr 05/17/17 05/17/17 05/18/17 22:46 23:13 00:45 POC Glucose (mg/dL) 176 H 187 H Total Creatine Kinase < 20 L CK-MB (Mass) 0.26 Troponin I, Quant 0.7280 H* 05/18/17 05/18/17 05/18/17 06:14 06:38 07:02 POC Glucose (mg/dL) 29 L* 66 88 Total Creatine Kinase CK-MB (Mass) Troponin I, Quant 05/18/17 05/18/17 05/18/17 09:36 11:39 16:31 POC Glucose (mg/dL) 157 H 128 H Total Creatine Kinase < 20 L CK-MB (Mass) 0.35 Troponin I, Quant 0.7060 H* 05/18/17 21:02 POC Glucose (mg/dL) 182 H Total Creatine Kinase CK-MB (Mass) Troponin I, Quant - EKG Data EKG Interpreted by: Myself EKG shows normal: Sinus rhythm, ST-T waves (LVH, chronic lateral ST changes ) - Imaging and Cardiology Chest x-ray Status: Image reviewed by me (Minimal congestion) Assessment & Plan - Assessment and Plan (Free Text) Assessment: --> CP HX of CAD > CABG > Failed grafts > PCI to RCA ( more thsn 5 years ago ) Normal LVEF with stage 3 diastolic dysfunction, mod LVH, mod Pulm HTN, infundibular PS mild-mod (last echo 04/2017) * Coronary anatomy has no potential for revascularization due to small diffuse CAD. * Current troponin is likely in part related to musculoskeletal causes, neuropathy, ESRD status, and or demand ischemia from anemia versus chronic microvascular disease. coreg 6.25 BID --> increase to 12.5 BID Imdur 60 Add ranexa 500 BID Norvasc 5 qd hyperkalemia on multiple admissions: challenge with ARB and monitor K+ if ok with renal No intervention planned HTN stable ESRD cont HD PAD hx b/l BKA stump looks clean Chronic anemia
--- NOTE | 2017-05-18 23:06 | CP.PCM.CON ---
Past Patient History - Infectious Disease Hx of Infectious Diseases: None - Tetanus Immunizations Tetanus Immunization: >10 years Ago - Past Medical History & Family History Past Medical History?: Yes - Past Social History Smoking Status: Never Smoked - CARDIAC Hx Cardiac Disorders: Yes Hx Atrial Fibrillation: Yes Hx Cardia Arrhythmia: Yes Hx Congestive Heart Failure: Yes Hx Hypercholesterolemia: Yes Hx Hypertension: Yes - PULMONARY Hx Respiratory Disorders: Yes Hx Asthma: Yes Hx Bronchitis: Yes Hx Chronic Obstructive Pulmonary Disease (COPD): Yes Hx Pneumonia: Yes - NEUROLOGICAL Hx Neurological Disorder: Yes Hx Alzheimer's Disease: Yes Hx Seizures: Yes - HEENT Hx HEENT Problems: Yes Hx Blind: Yes (legally blind) Hx Cataracts: Yes - RENAL Hx Chronic Kidney Disease: Yes Hx Dialysis: Yes () Type of Dialysis Access: right SC permacath Date of Last Dialysis Treatment: 05/16/17 - ENDOCRINE/METABOLIC Hx Endocrine Disorders: Yes Hx Diabetes Mellitus Type 1: Yes Hx Hypothyroidism: Yes - HEMATOLOGICAL/ONCOLOGICAL Hx Blood Disorders: Yes Hx Anemia: Yes - INTEGUMENTARY Hx Dermatological Problems: Yes Other/Comment: scabs on arms,hands and thigh area - MUSCULOSKELETAL/RHEUMATOLOGICAL Hx Musculoskeletal Disorders: Yes Hx Falls: No Other/Comment: Bilateral BKA - GASTROINTESTINAL Hx Gastrointestinal Disorders: Yes Hx Gall Bladder Disease: Yes Hx Gastritis: Yes - GENITOURINARY/GYNECOLOGICAL Hx Genitourinary Disorders: No Hx Sexually Transmitted Disorders: No - PSYCHIATRIC Hx Psychophysiologic Disorder: No Hx Substance Use: No - SURGICAL HISTORY Hx Surgeries: Yes Hx Cholecystectomy: Yes (2011) 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/2009) Hx Coronary Stent: Yes Other/Comment: Bilateral BKA - ANESTHESIA Hx Anesthesia: Yes Hx Anesthesia Reactions: No Hx Malignant Hyperthermia: No Meds Allergies/Adverse Reactions: Allergies Allergy/AdvReac Type Severity Reaction Status Date / Time acetaminophen [From Percocet] Allergy RASH Verified 04/09/17 10:25 atenolol Allergy RASH Verified 04/09/17 10:25 digoxin Allergy RASH Verified 04/09/17 10:25 milk Allergy ITCHING Verified 04/09/17 10:25 morphine Allergy RASH Verified 04/09/17 10:28 oxycodone HCl [From Percocet] Allergy RASH Verified 04/09/17 10:25 - Medications Medications: Current Medications Acetaminophen (Tylenol 325mg Tab) 650 mg PO Q6 PRN PRN Reason: Fever >100.4 F Amlodipine Besylate (Norvasc) 10 mg PO DAILY [facility] Last Admin: 05/18/17 09:25 Dose: 10 mg Aspirin (Aspirin Chewable) 81 mg PO DAILY [facility] Last Admin: 05/18/17 09:27 Dose: Not Given Calcitriol (Rocaltrol) 0.25 mcg PO TTS [facility] Last Admin: 05/18/17 09:28 Dose: Not Given Calcium Carbonate (Oscal) 500 mg PO BID [facility] Last Admin: 05/18/17 20:59 Dose: 500 mg Carvedilol (Coreg) 6.25 mg PO Q12 [facility] Last Admin: 05/18/17 20:59 Dose: 6.25 mg Diphenhydramine HCl (Benadryl) 25 mg PO Q8 PRN PRN Reason: Allergy symptoms Docusate Sodium (Colace) 100 mg PO BID PRN PRN Reason: Constipation Ergocalciferol (Drisdol 50,000 Intl Units Cap) 1 cap PO Q7D [facility] Last Admin: 05/17/17 23:17 Dose: 1 cap Hydromorphone HCl (Dilaudid) 1 mg IVP Q4H PRN PRN Reason: Pain, moderate (4-7) Last Admin: 05/18/17 20:53 Dose: 1 mg Piperacillin Sod/Tazobactam (Sod 3.375 gm/ Sodium Chloride) 100 mls @ 200 mls/ hr IVPB Q8H [facility] Last Admin: 05/18/17 19:36 Dose: 200 mls/hr Insulin Human Regular (Novolin R) 0 unit SC ACHS [facility] PRN Reason: Protocol Last Admin: 05/18/17 17:55 Dose: Not Given Isosorbide Mononitrate (Imdur) 60 mg PO DAILY [facility] Last Admin: 05/18/17 09:25 Dose: 60 mg Pantoprazole Sodium (Protonix Ec Tab) 40 mg PO DAILY [facility] Last Admin: 05/18/17 09:25 Dose: 40 mg Rosuvastatin Calcium (Crestor) 10 mg PO HS [facility] Last Admin: 05/18/17 20:59 Dose: 10 mg Vitamin B Complex/Vit C/Folic Acid (Nephro-Courtney) 1 tab PO 0800 [facility] Last Admin: 05/18/17 09:24 Dose: 1 tab Results - Vital Signs Recent Vital Signs: Last Vital Signs Temp 97.3 F L 05/18/17 17:20 Pulse 78 05/18/17 21:04 Resp 18 05/18/17 21:04 BP 110/61 05/18/17 21:04 Pulse Ox 100 05/18/17 17:20 - Labs Result Diagrams: 05/17/17 16:24 05/17/17 16:24 Labs: Laboratory Results - last 24 hr 05/17/17 05/17/17 05/18/17 22:46 23:13 00:45 POC Glucose (mg/dL) 176 H 187 H Total Creatine Kinase < 20 L CK-MB (Mass) 0.26 Troponin I, Quant 0.7280 H* 05/18/17 05/18/17 05/18/17 06:14 06:38 07:02 POC Glucose (mg/dL) 29 L* 66 88 Total Creatine Kinase CK-MB (Mass) Troponin I, Quant 05/18/17 05/18/17 05/18/17 09:36 11:39 16:31 POC Glucose (mg/dL) 157 H 128 H Total Creatine Kinase < 20 L CK-MB (Mass) 0.35 Troponin I, Quant 0.7060 H* 05/18/17 21:02 POC Glucose (mg/dL) 182 H Total Creatine Kinase CK-MB (Mass) Troponin I, Quant
[2017-05-19 07:03] LABS: HEMATOCRIT 27.2 % (35.0-51.0); MEAN CELL VOLUME 94.1 fL (80.0-94.0); MEAN CORPUSCULAR HEMOGLOBIN 29.4 pg (27.0-31.0); MEAN CORPUSCULAR HGB CONC 31.2 g/dL (33.0-37.0); MEAN PLATELET VOLUME 8.6 fL (7.2-11.7); RED CELL DISTRIBUTION WIDTH 16.7 % (11.5-14.5); WHITE BLOOD COUNT 9.7 K/uL (4.8-10.8)
[2017-05-19] MEDS: (Novolin R) Insulin Human Regular 100 units/ml vial SC SCH ×4 (08:43→22:01)
[2017-05-19] MEDS: Multivitamin Vitamin B Complex (Nephro-Vite) Tab PO SCH (08:44)
[2017-05-19] MEDS: Pantoprazole 40 mg EC Tab PO SCH ×2 (09:25→10:46)
[2017-05-19] MEDS: Ergocalciferol 50,000 Intl Units Cap PO SCH (10:42)
--- NOTE | 2017-05-19 10:51 | CP.PCM.PN ---
Subjective - Date & Time of Evaluation Date of Evaluation: 05/19/17 Time of Evaluation: 10:47 - Subjective Subjective: No CP or resting SOB No fevers Difficult peripheral IV access Objective - Vital Signs/Intake and Output Vital Signs (last 24 hours): Temp Pulse Resp BP Pulse Ox 97.3 F L 68 20 127/73 98 05/19/17 10:12 05/19/17 10:12 05/19/17 10:12 05/19/17 10:12 05/19/17 10:12 Intake and Output: 05/19/17 05/19/17 06:59 18:59 Intake Total 340 Balance 340 - Medications Medications: Current Medications Acetaminophen (Tylenol 325mg Tab) 650 mg PO Q6 PRN PRN Reason: Fever >100.4 F Amlodipine Besylate (Norvasc) 10 mg PO DAILY [facility] Last Admin: 05/18/17 09:25 Dose: 10 mg Aspirin (Aspirin Chewable) 81 mg PO DAILY [facility] Last Admin: 05/18/17 09:27 Dose: Not Given Calcitriol (Rocaltrol) 0.25 mcg PO TTS [facility] Last Admin: 05/18/17 09:28 Dose: Not Given Calcium Carbonate (Oscal) 500 mg PO BID [facility] Last Admin: 05/18/17 20:59 Dose: 500 mg Carvedilol (Coreg) 6.25 mg PO Q12 [facility] Last Admin: 05/18/17 20:59 Dose: 6.25 mg Diphenhydramine HCl (Benadryl) 25 mg PO Q8 PRN PRN Reason: Allergy symptoms Docusate Sodium (Colace) 100 mg PO BID PRN PRN Reason: Constipation Ergocalciferol (Drisdol 50,000 Intl Units Cap) 1 cap PO Q7D [facility] Last Admin: 05/17/17 23:17 Dose: 1 cap Hydromorphone HCl (Dilaudid) 1 mg IVP Q4H PRN PRN Reason: Pain, moderate (4-7) Last Admin: 05/19/17 10:33 Dose: 1 mg Piperacillin Sod/Tazobactam (Sod 3.375 gm/ Sodium Chloride) 100 mls @ 200 mls/ hr IVPB Q8H [facility] Last Admin: 05/18/17 19:36 Dose: 200 mls/hr Insulin Human Regular (Novolin R) 0 unit SC ACHS [facility] PRN Reason: Protocol Last Admin: 05/19/17 08:43 Dose: 1 unit Isosorbide Mononitrate (Imdur) 60 mg PO DAILY [facility] Last Admin: 05/18/17 09:25 Dose: 60 mg Pantoprazole Sodium (Protonix Ec Tab) 40 mg PO DAILY [facility] Last Admin: 05/18/17 09:25 Dose: 40 mg Rosuvastatin Calcium (Crestor) 10 mg PO HS [facility] Last Admin: 05/18/17 20:59 Dose: 10 mg Vitamin B Complex/Vit C/Folic Acid (Nephro-Courtnye) 1 tab PO 0800 [facility] Last Admin: 05/19/17 08:44 Dose: 1 tab - Labs Labs: 05/19/17 06:59 - Constitutional Appears: Chronically Ill - Eye Exam Eye Exam: absent: Normal appearance - ENT Exam ENT Exam: Mucous Membranes Moist - Neck Exam Neck Exam: Full ROM - Respiratory Exam Respiratory Exam: Clear to Ausculation Bilateral - Cardiovascular Exam Cardiovascular Exam: REGULAR RHYTHM, Murmur - Extremities Exam Extremities Exam: absent: Normal Inspection (b/l BKA: clean stump) - Neurological Exam Neurological Exam: Alert, Awake, Oriented x3 - Psychiatric Exam Psychiatric exam: Depressed - Skin Skin Exam: Normal Color, Warm Assessment and Plan - Assessment and Plan (Free Text) Assessment: --> CP HX of CAD > CABG > Failed grafts > PCI to RCA ( more thsn 5 years ago ) Normal LVEF with stage 3 diastolic dysfunction, mod LVH, mod Pulm HTN, infundibular PS mild-mod (last echo 04/2017) * Coronary anatomy has no potential for revascularization due to small diffuse CAD. * Current troponin is likely in part related to musculoskeletal causes, neuropathy, ESRD status, and or demand ischemia from anemia versus chronic microvascular disease. --> Parox Aflutter/Fib; hx of catheter relate thrombus/IE: resolved Patient with multiple trnasfusions and heme+ stool in past: deemed high risk for agressive AC coreg 6.25 BID --> increase to 12.5 BID Imdur 60 Add ranexa 500 BID Norvasc 5 qd hyperkalemia on multiple admissions: challenge with ARB and monitor K+ if ok with renal No cardiac interventions planned other than optimal medical therapy for chronic CAD, diastolic dysfunction, HTN. HTN stable ESRD cont HD PAD hx b/l BKA stump looks clean Chronic anemia
[2017-05-19] MEDS: Piperacillin/Tazobact 3.375 GM in Sodium Chloride 100 ML IVPB SCH ×4 (11:17→23:59)
--- NOTE | 2017-05-19 13:00 | CP.PCM.PN ---
Subjective - Date & Time of Evaluation Date of Evaluation: 05/19/17 Time of Evaluation: 12:57 - Subjective Subjective: c/o of pain all over his body less cough still sob Objective - Vital Signs/Intake and Output Vital Signs (last 24 hours): Temp Pulse Resp BP Pulse Ox 97.3 F L 68 20 127/73 98 05/19/17 10:12 05/19/17 10:12 05/19/17 10:12 05/19/17 10:12 05/19/17 10:12 Intake and Output: 05/19/17 05/19/17 06:59 18:59 Intake Total 340 Balance 340 - Medications Medications: Current Medications Acetaminophen (Tylenol 325mg Tab) 650 mg PO Q6 PRN PRN Reason: Fever >100.4 F Amlodipine Besylate (Norvasc) 10 mg PO DAILY [facility] Last Admin: 05/19/17 10:42 Dose: 10 mg Aspirin (Aspirin Chewable) 81 mg PO DAILY [facility] Last Admin: 05/19/17 10:41 Dose: 81 mg Calcitriol (Rocaltrol) 0.25 mcg PO TTS [facility] Last Admin: 05/18/17 09:28 Dose: Not Given Calcium Carbonate (Oscal) 500 mg PO BID [facility] Last Admin: 05/19/17 10:42 Dose: 500 mg Carvedilol (Coreg) 6.25 mg PO Q12 [facility] Last Admin: 05/19/17 10:46 Dose: 6.25 mg Diphenhydramine HCl (Benadryl) 25 mg PO Q8 PRN PRN Reason: Allergy symptoms Docusate Sodium (Colace) 100 mg PO BID PRN PRN Reason: Constipation Last Admin: 05/19/17 10:42 Dose: 100 mg Ergocalciferol (Drisdol 50,000 Intl Units Cap) 1 cap PO Q7D [facility] Last Admin: 05/19/17 10:42 Dose: 1 cap Hydromorphone HCl (Dilaudid) 1 mg IVP Q4H PRN PRN Reason: Pain, moderate (4-7) Last Admin: 05/19/17 10:33 Dose: 1 mg Piperacillin Sod/Tazobactam (Sod 3.375 gm/ Sodium Chloride) 100 mls @ 200 mls/ hr IVPB Q8H [facility] Last Admin: 05/19/17 11:17 Dose: 200 mls/hr Insulin Human Regular (Novolin R) 0 unit SC ACHS [facility] PRN Reason: Protocol Last Admin: 05/19/17 12:41 Dose: 1 unit Isosorbide Mononitrate (Imdur) 60 mg PO DAILY [facility] Last Admin: 05/19/17 10:42 Dose: 60 mg Pantoprazole Sodium (Protonix Ec Tab) 40 mg PO DAILY [facility] Last Admin: 05/19/17 10:46 Dose: 40 mg Rosuvastatin Calcium (Crestor) 10 mg PO HS [facility] Last Admin: 05/18/17 20:59 Dose: 10 mg Vitamin B Complex/Vit C/Folic Acid (Nephro-Courtney) 1 tab PO 0800 [facility] Last Admin: 05/19/17 08:44 Dose: 1 tab - Labs Labs: 05/19/17 06:59 - Constitutional Appears: Non-toxic - Head Exam Head Exam: ATRAUMATIC - Eye Exam Eye Exam: Conjunctival injection - ENT Exam ENT Exam: Mucous Membranes Dry - Respiratory Exam Respiratory Exam: Decreased Breath Sounds - Cardiovascular Exam Cardiovascular Exam: REGULAR RHYTHM - GI/Abdominal Exam GI & Abdominal Exam: Normal Bowel Sounds - Rectal Exam Rectal Exam: NORMAL INSPECTION - Back Exam Back Exam: CVA tenderness (L) - Psychiatric Exam Psychiatric exam: Depressed - Skin Skin Exam: Pallor Assessment and Plan - Assessment and Plan (Free Text) Assessment: chest pain cad chf copd dm depresion Plan: increase pain management
[2017-05-20] MEDS: Piperacillin/Tazobact 3.375 GM in Sodium Chloride 100 ML IVPB SCH ×2 (02:25→09:35)
[2017-05-20] MEDS: (Novolin R) Insulin Human Regular 100 units/ml vial SC SCH ×4 (09:06→21:24)
[2017-05-20] MEDS: Pantoprazole 40 mg EC Tab PO SCH (09:34)
[2017-05-20] MEDS: Multivitamin Vitamin B Complex (Nephro-Vite) Tab PO SCH (09:37)
--- NOTE | 2017-05-20 13:16 | CP.PCM.PN ---
Subjective - Date & Time of Evaluation Date of Evaluation: 05/20/17 Time of Evaluation: 01:00 - Subjective Subjective: Feels better No SOb Objective - Vital Signs/Intake and Output Vital Signs (last 24 hours): Temp Pulse Resp BP Pulse Ox 97.2 F L 76 20 169/76 H 98 05/20/17 09:09 05/20/17 09:09 05/20/17 09:09 05/20/17 09:09 05/20/17 09:09 Intake and Output: 05/20/17 05/20/17 06:59 18:59 Intake Total 400 Balance 400 - Medications Medications: Current Medications Acetaminophen (Tylenol 325mg Tab) 650 mg PO Q6 PRN PRN Reason: Fever >100.4 F Alprazolam (Xanax) 1 mg PO HS PRN PRN Reason: Anxiety Amlodipine Besylate (Norvasc) 10 mg PO DAILY [facility] Last Admin: 05/20/17 09:35 Dose: 10 mg Aspirin (Aspirin Chewable) 81 mg PO DAILY [facility] Last Admin: 05/20/17 09:34 Dose: 81 mg Calcitriol (Rocaltrol) 0.25 mcg PO TTS [facility] Last Admin: 05/18/17 09:28 Dose: Not Given Calcium Carbonate (Oscal) 500 mg PO BID [facility] Last Admin: 05/20/17 09:35 Dose: 500 mg Carvedilol (Coreg) 6.25 mg PO Q12 [facility] Last Admin: 05/20/17 09:35 Dose: 6.25 mg Diphenhydramine HCl (Benadryl) 25 mg PO Q8 PRN PRN Reason: Allergy symptoms Docusate Sodium (Colace) 100 mg PO BID PRN PRN Reason: Constipation Last Admin: 05/19/17 10:42 Dose: 100 mg Ergocalciferol (Drisdol 50,000 Intl Units Cap) 1 cap PO Q7D [facility] Last Admin: 05/19/17 10:42 Dose: 1 cap Fentanyl (Duragesic) 1 patch TD Q72H [facility] Last Admin: 05/19/17 15:34 Dose: Not Given Hydromorphone HCl (Dilaudid) 2 mg IVP Q4H PRN PRN Reason: severe pain Piperacillin Sod/Tazobactam (Sod 2.25 gm/ Sodium Chloride) 100 mls @ 200 mls/ hr IVPB Q6H [facility] Insulin Human Regular (Novolin R) 0 unit SC ACHS [facility] PRN Reason: Protocol Last Admin: 05/20/17 09:06 Dose: Not Given Isosorbide Mononitrate (Imdur) 60 mg PO DAILY [facility] Last Admin: 05/20/17 09:35 Dose: 60 mg Pantoprazole Sodium (Protonix Ec Tab) 40 mg PO DAILY [facility] Last Admin: 05/20/17 09:34 Dose: 40 mg Rosuvastatin Calcium (Crestor) 10 mg PO HS [facility] Last Admin: 05/18/17 20:59 Dose: 10 mg Sertraline HCl (Zoloft) 50 mg PO DAILY [facility] Vitamin B Complex/Vit C/Folic Acid (Nephro-Courtney) 1 tab PO 0800 [facility] Last Admin: 05/20/17 09:37 Dose: 1 tab - Labs Labs: 05/19/17 06:59 - Respiratory Exam Additional comments: Lungs clear - Cardiovascular Exam Cardiovascular Exam: REGULAR RHYTHM - Extremities Exam Additional comments: B/L BKA Assessment and Plan - Assessment and Plan (Free Text) Assessment: ESRD on HD HTN IDDM CAD/CABG/Lt atrial thrombus Plan: Stable on dialysis Continue HD per schedule
[2017-05-20] MEDS: Piperacillin/Tazobact 2.25 GM in Sodium Chloride 100 ML IVPB SCH ×2 (16:04→21:18)
--- NOTE | 2017-05-20 17:10 | CP.PCM.PN ---
Subjective - Date & Time of Evaluation Date of Evaluation: 05/20/17 Time of Evaluation: 17:07 - Subjective Subjective: still has a lot of cough sob pain allover beter Objective - Vital Signs/Intake and Output Vital Signs (last 24 hours): Temp Pulse Resp BP Pulse Ox 97.2 F L 83 20 169/76 H 98 05/20/17 09:09 05/20/17 13:55 05/20/17 09:09 05/20/17 09:09 05/20/17 09:09 Intake and Output: 05/20/17 05/20/17 06:59 18:59 Intake Total 400 Balance 400 - Medications Medications: Current Medications Acetaminophen (Tylenol 325mg Tab) 650 mg PO Q6 PRN PRN Reason: Fever >100.4 F Alprazolam (Xanax) 1 mg PO HS PRN PRN Reason: Anxiety Amlodipine Besylate (Norvasc) 10 mg PO DAILY [facility] Last Admin: 05/20/17 09:35 Dose: 10 mg Aspirin (Aspirin Chewable) 81 mg PO DAILY [facility] Last Admin: 05/20/17 09:34 Dose: 81 mg Calcitriol (Rocaltrol) 0.25 mcg PO TTS [facility] Last Admin: 05/18/17 09:28 Dose: Not Given Calcium Carbonate (Oscal) 500 mg PO BID [facility] Last Admin: 05/20/17 09:35 Dose: 500 mg Carvedilol (Coreg) 6.25 mg PO Q12 [facility] Last Admin: 05/20/17 09:35 Dose: 6.25 mg Diphenhydramine HCl (Benadryl) 25 mg PO Q8 PRN PRN Reason: Allergy symptoms Docusate Sodium (Colace) 100 mg PO BID PRN PRN Reason: Constipation Last Admin: 05/19/17 10:42 Dose: 100 mg Epoetin Tom (Procrit) 10,000 unit IV TTS [facility] Ergocalciferol (Drisdol 50,000 Intl Units Cap) 1 cap PO Q7D [facility] Last Admin: 05/19/17 10:42 Dose: 1 cap Fentanyl (Duragesic) 1 patch TD Q72H [facility] Last Admin: 05/19/17 15:34 Dose: Not Given Hydromorphone HCl (Dilaudid) 2 mg IVP Q4H PRN PRN Reason: severe pain Last Admin: 05/20/17 12:47 Dose: 2 mg Piperacillin Sod/Tazobactam (Sod 2.25 gm/ Sodium Chloride) 100 mls @ 200 mls/ hr IVPB Q6H [facility] Last Admin: 05/20/17 16:04 Dose: 200 mls/hr Insulin Human Regular (Novolin R) 0 unit SC ACHS [facility] PRN Reason: Protocol Last Admin: 05/20/17 12:47 Dose: 1 unit Isosorbide Mononitrate (Imdur) 60 mg PO DAILY [facility] Last Admin: 05/20/17 09:35 Dose: 60 mg Pantoprazole Sodium (Protonix Ec Tab) 40 mg PO DAILY [facility] Last Admin: 05/20/17 09:34 Dose: 40 mg Rosuvastatin Calcium (Crestor) 10 mg PO HS [facility] Last Admin: 05/18/17 20:59 Dose: 10 mg Sertraline HCl (Zoloft) 50 mg PO DAILY [facility] Last Admin: 05/20/17 12:46 Dose: 50 mg Vitamin B Complex/Vit C/Folic Acid (Nephro-Courtney) 1 tab PO 0800 [facility] Last Admin: 05/20/17 09:37 Dose: 1 tab - Labs Labs: 05/19/17 06:59 - Constitutional Appears: Non-toxic - Head Exam Head Exam: ATRAUMATIC - Eye Exam Eye Exam: Conjunctival injection - ENT Exam ENT Exam: Mucous Membranes Dry - Neck Exam Neck Exam: Full ROM - Respiratory Exam Respiratory Exam: Decreased Breath Sounds - Cardiovascular Exam Cardiovascular Exam: REGULAR RHYTHM - GI/Abdominal Exam GI & Abdominal Exam: Normal Bowel Sounds - Rectal Exam Rectal Exam: NORMAL INSPECTION - Extremities Exam Additional comments: bilateral amputation - Back Exam Back Exam: CVA tenderness (L) - Neurological Exam Neurological Exam: Oriented x3 - Psychiatric Exam Psychiatric exam: Depressed - Skin Skin Exam: Pallor Assessment and Plan - Assessment and Plan (Free Text) Assessment: ac pnumonia dm ESRF CAD CHF AMPUTATION DEPRESION Plan: ADD COUGH MED
[2017-05-20] MEDS: guaiFENesin 600 mg ER Tab PO SCH (19:11)
--- NOTE | 2017-05-21 02:27 | CON ---
DATE: 05/20/2017 CHIEF COMPLAINT AND REASON FOR CONSULTATION: The patient is referred by Dr. Li for comanagement evaluation for depression and anxiety. HISTORY OF PRESENT ILLNESS: This is a case of a 36-year-old male who is well known to have seen me numerous times through the years. The patient has history of depression, anxiety, as well as delirium, most probably drug induced from extensive intake of pain medication. The patient was admitted with shortness of breath, chest pain, and mild cough. The patient was diagnosed with pneumonia, possible non-STEMI. The patient referred for comanagement. The patient has history of depression and anxiety. The patient is noted to be very med seeking. Today, the patient was complaining of severe pain. The patient has history of end-stage renal disease as well as diabetic neuropathy. The patient is a bilateral amputee complaining of severe pain, which he rates over 8/10 to 10/10. The patient is currently taking Dilaudid 1 mg IV q. 4 and asking for increase. The patient used to take 2 mg IV q. 4 p.r.n. and also takes Zoloft for depression and also Xanax at night for anxiety. The patient today is noted to be very anxious and asking for increase of medication. The patient has been given excessive amount of pain medication in the past to control his pain, but the patient develops drug induced delirium. At this time, the patient started having visual hallucination seeing yellow tigers. The patient is advised to stay also with Dilaudid, he was given fentanyl patch, but according to the patient it does not work. The patient seems to be coming back here asking for Dilaudid. Today, when seen he said he still is in pain and wants pain medications. PAST PSYCHIATRIC HISTORY: History of depression, anxiety, as well as delirium. He has been by me numerous times with history of depression and has been admitted in the past. PAST MEDICAL HISTORY: History of end-stage renal disease on dialysis, history of atrial fibrillation, CAD, history of CHF, COPD, CVA, diabetes, hypertension, and pneumonia. DRUG AND ALCOHOL HISTORY: He denies any. ALLERGIES: THE PATIENT IS ALLERGIC TO PERCOCET, ATENOLOL, DIGOXIN, MORPHINE, AND OXYCODONE. PSYCHOSOCIAL HISTORY: The patient is disabled, lives with his father, his secretary of police. His mother used to be his secretary of police before. MEDICATIONS: List of current medication include aspirin, Benadryl, Colace, Coreg, Crestor, Dilaudid 1 mg q. 4 p.r.n., as well as Duragesic patch, Imdur, Norvasc, Novolin, Os-Beau, piperacillin, Protonix, Rocaltrol, and Tylenol. PHYSICAL EXAMINATION: VITAL SIGNS: Temperature 97.2, pulse 76, blood pressure is 169/76, respirations 20, oxygen saturation is 92. CONSTITUTIONAL: The patient is alert and oriented x3, but very somatic, anxious, med seeking, seen in his room. HEENT: The patient is legally blind. No headache. NECK: Supple. RESPIRATORY: Dyspnea. CARDIOVASCULAR: No chest pain. GASTROINTESTINAL: The patient is eating fairly. No nausea or vomiting. EXTREMITIES: The patient is a bilateral amputee, complaining of severe pain. The patient is asking for Dilaudid. MUSCULOSKELETAL: Feels weak. NEUROLOGIC: Alert and oriented x3. seen in his room. GENITOURINARY: No urinary problems. MENTAL STATUS EXAMINATION: A well-developed male looks his age, alert and oriented x3, very anxious, somatic, and med seeking. Affect is reactive. Mood is chronically depressed. Thought process coherent. Thought content no psychosis. No suicidal or homicidal ideation. Attention and memory seems to be fair. Insight and judgement limited. Impulse control is fair at this time. IMPRESSION: History of depression, anxiety, as well as history of drug induced delirium, mood is dysphoric secondary to medical problems, pneumonia, non-ST segment myocardial infarction, congestive heart failure, diabetes, and hypertension. PLAN AND RECOMMENDATION: Pain medications reviewed. We will change the Dilaudid to 2 mg IV q.4 p.r.n. The patient was taking this dose before when he was admitted in the hospital. We will add Zoloft 50 mg daily and then also the Xanax 1 mg at bedtime p.r.n., which he used to take before. The patient has been referred for pain medication, however, the patient has a history of developing drug-induced delirium when he is taking too much pain medications. I will also discontinue the fentanyl patch since the patient claims it is not helping him. The patient will continue treatment plan as outlined. Continue antibiotics as ordered. The patient states that he does want to go for subacute rehab. From the previous admission, the patient chooses to stay in the hospital and once medically cleared he goes back home. Dale Joseph MD [email or web address]
[2017-05-21] MEDS: Piperacillin/Tazobact 2.25 GM in Sodium Chloride 100 ML IVPB SCH ×4 (03:01→22:21)
[2017-05-21] MEDS: (Novolin R) Insulin Human Regular 100 units/ml vial SC SCH ×4 (07:17→22:00)
[2017-05-21] MEDS: Pantoprazole 40 mg EC Tab PO SCH (09:58)
[2017-05-21] MEDS: guaiFENesin 600 mg ER Tab PO SCH ×2 (09:58→18:44)
[2017-05-21] MEDS: Multivitamin Vitamin B Complex (Nephro-Vite) Tab PO SCH (09:59)
--- NOTE | 2017-05-21 10:36 | CP.PCM.PN ---
Subjective - Date & Time of Evaluation Date of Evaluation: 05/21/17 Time of Evaluation: 10:33 - Subjective Subjective: pt seen and examined less pain less cough Objective - Vital Signs/Intake and Output Vital Signs (last 24 hours): Temp Pulse Resp BP Pulse Ox 98 F 78 18 94/66 L 95 05/21/17 07:35 05/21/17 07:35 05/21/17 07:35 05/21/17 07:35 05/21/17 07:35 Intake and Output: 05/21/17 05/21/17 06:59 18:59 Intake Total 120 Balance 120 - Medications Medications: Current Medications Acetaminophen (Tylenol 325mg Tab) 650 mg PO Q6 PRN PRN Reason: Fever >100.4 F Alprazolam (Xanax) 1 mg PO HS PRN PRN Reason: Anxiety Amlodipine Besylate (Norvasc) 10 mg PO DAILY [facility] Last Admin: 05/21/17 09:58 Dose: 10 mg Aspirin (Aspirin Chewable) 81 mg PO DAILY [facility] Last Admin: 05/21/17 09:58 Dose: 81 mg Calcitriol (Rocaltrol) 0.25 mcg PO TTS [facility] Last Admin: 05/21/17 09:58 Dose: 0.25 mcg Calcium Carbonate (Oscal) 500 mg PO BID [facility] Last Admin: 05/21/17 09:58 Dose: 500 mg Carvedilol (Coreg) 6.25 mg PO Q12 [facility] Last Admin: 05/21/17 09:58 Dose: 6.25 mg Diphenhydramine HCl (Benadryl) 25 mg PO Q8 PRN PRN Reason: Allergy symptoms Docusate Sodium (Colace) 100 mg PO BID PRN PRN Reason: Constipation Last Admin: 05/19/17 10:42 Dose: 100 mg Epoetin Tom (Procrit) 10,000 unit IV TTS [facility] Ergocalciferol (Drisdol 50,000 Intl Units Cap) 1 cap PO Q7D [facility] Last Admin: 05/19/17 10:42 Dose: 1 cap Fentanyl (Duragesic) 1 patch TD Q72H [facility] Last Admin: 05/19/17 15:34 Dose: Not Given Guaifenesin (Mucinex La) 600 mg PO BID [facility] Last Admin: 05/21/17 09:58 Dose: 600 mg Hydromorphone HCl (Dilaudid) 2 mg IVP Q4H PRN PRN Reason: severe pain Last Admin: 05/21/17 09:58 Dose: 2 mg Piperacillin Sod/Tazobactam (Sod 2.25 gm/ Sodium Chloride) 100 mls @ 200 mls/ hr IVPB Q6H [facility] Last Admin: 05/21/17 10:26 Dose: 200 mls/hr Insulin Human Regular (Novolin R) 0 unit SC ACHS [facility] PRN Reason: Protocol Last Admin: 05/21/17 07:17 Dose: Not Given Isosorbide Mononitrate (Imdur) 60 mg PO DAILY [facility] Last Admin: 05/21/17 09:58 Dose: 60 mg Pantoprazole Sodium (Protonix Ec Tab) 40 mg PO DAILY [facility] Last Admin: 05/21/17 09:58 Dose: 40 mg Rosuvastatin Calcium (Crestor) 10 mg PO HS [facility] Last Admin: 05/18/17 20:59 Dose: 10 mg Sertraline HCl (Zoloft) 50 mg PO DAILY [facility] Last Admin: 05/21/17 09:58 Dose: 50 mg Vitamin B Complex/Vit C/Folic Acid (Nephro-Courtney) 1 tab PO 0800 [facility] Last Admin: 05/21/17 09:59 Dose: 1 tab - Labs Labs: 05/19/17 06:59 05/17/17 16:24 - Constitutional Appears: Non-toxic - Head Exam Head Exam: ATRAUMATIC - Eye Exam Eye Exam: Conjunctival injection - ENT Exam ENT Exam: Normal Oropharynx - Neck Exam Neck Exam: Full ROM - Respiratory Exam Respiratory Exam: Decreased Breath Sounds - Cardiovascular Exam Cardiovascular Exam: REGULAR RHYTHM - GI/Abdominal Exam GI & Abdominal Exam: Normal Bowel Sounds - Rectal Exam Rectal Exam: Deferred - Back Exam Back Exam: CVA tenderness (L) - Psychiatric Exam Psychiatric exam: Normal Affect - Skin Skin Exam: Pallor Assessment and Plan - Assessment and Plan (Free Text) Assessment: ac pnumonia copd ESRF [facility] CHRONIC PAIN Plan: PER ORDERS
--- NOTE | 2017-05-21 10:59 | CP.PCM.PN ---
Subjective - Date & Time of Evaluation Date of Evaluation: 05/21/17 Time of Evaluation: 10:30 - Subjective Subjective: No cardiac complaints No fevers Cough improved Objective - Vital Signs/Intake and Output Vital Signs (last 24 hours): Temp Pulse Resp BP Pulse Ox 98 F 78 18 94/66 L 95 05/21/17 07:35 05/21/17 07:35 05/21/17 07:35 05/21/17 07:35 05/21/17 07:35 Intake and Output: 05/21/17 05/21/17 06:59 18:59 Intake Total 120 Balance 120 - Medications Medications: Current Medications Acetaminophen (Tylenol 325mg Tab) 650 mg PO Q6 PRN PRN Reason: Fever >100.4 F Alprazolam (Xanax) 1 mg PO HS PRN PRN Reason: Anxiety Amlodipine Besylate (Norvasc) 10 mg PO DAILY [facility] Last Admin: 05/21/17 09:58 Dose: 10 mg Aspirin (Aspirin Chewable) 81 mg PO DAILY [facility] Last Admin: 05/21/17 09:58 Dose: 81 mg Calcitriol (Rocaltrol) 0.25 mcg PO TTS [facility] Last Admin: 05/21/17 09:58 Dose: 0.25 mcg Calcium Carbonate (Oscal) 500 mg PO BID [facility] Last Admin: 05/21/17 09:58 Dose: 500 mg Carvedilol (Coreg) 6.25 mg PO Q12 [facility] Last Admin: 05/21/17 09:58 Dose: 6.25 mg Diphenhydramine HCl (Benadryl) 25 mg PO Q8 PRN PRN Reason: Allergy symptoms Docusate Sodium (Colace) 100 mg PO BID PRN PRN Reason: Constipation Last Admin: 05/19/17 10:42 Dose: 100 mg Epoetin Tom (Procrit) 10,000 unit IV TTS [facility] Ergocalciferol (Drisdol 50,000 Intl Units Cap) 1 cap PO Q7D [facility] Last Admin: 05/19/17 10:42 Dose: 1 cap Fentanyl (Duragesic) 1 patch TD Q72H [facility] Last Admin: 05/19/17 15:34 Dose: Not Given Guaifenesin (Mucinex La) 600 mg PO BID [facility] Last Admin: 05/21/17 09:58 Dose: 600 mg Hydromorphone HCl (Dilaudid) 2 mg IVP Q4H PRN PRN Reason: severe pain Last Admin: 05/21/17 09:58 Dose: 2 mg Piperacillin Sod/Tazobactam (Sod 2.25 gm/ Sodium Chloride) 100 mls @ 200 mls/ hr IVPB Q6H [facility] Last Admin: 05/21/17 10:26 Dose: 200 mls/hr Insulin Human Regular (Novolin R) 0 unit SC ACHS [facility] PRN Reason: Protocol Last Admin: 05/21/17 07:17 Dose: Not Given Isosorbide Mononitrate (Imdur) 60 mg PO DAILY [facility] Last Admin: 05/21/17 09:58 Dose: 60 mg Pantoprazole Sodium (Protonix Ec Tab) 40 mg PO DAILY [facility] Last Admin: 05/21/17 09:58 Dose: 40 mg Rosuvastatin Calcium (Crestor) 10 mg PO HS [facility] Last Admin: 05/18/17 20:59 Dose: 10 mg Sertraline HCl (Zoloft) 50 mg PO DAILY [facility] Last Admin: 05/21/17 09:58 Dose: 50 mg Vitamin B Complex/Vit C/Folic Acid (Nephro-Courtney) 1 tab PO 0800 [facility] Last Admin: 05/21/17 09:59 Dose: 1 tab - Labs Labs: 05/19/17 06:59 05/17/17 16:24 - Constitutional Appears: Chronically Ill (unchanged exam from day prior) Assessment and Plan - Assessment and Plan (Free Text) Assessment: --> CP HX of CAD > CABG > Failed grafts > PCI to RCA ( more thsn 5 years ago ) Normal LVEF with stage 3 diastolic dysfunction, mod LVH, mod Pulm HTN, infundibular PS mild-mod (last echo 04/2017) * Coronary anatomy has no potential for revascularization due to small diffuse CAD. * Current troponin is likely in part related to musculoskeletal causes, neuropathy, ESRD status, and or demand ischemia from anemia versus chronic microvascular disease. --> Parox Aflutter/Fib; hx of catheter relate thrombus/IE: resolved Patient with multiple transfusions and heme+ stool in past: deemed high risk for agressive AC coreg 6.25 BID --> increase to 12.5 BID if tolerated Imdur 60 Add ranexa 500 BID Norvasc 5 qd hyperkalemia on multiple admissions: challenge with ARB and monitor K+ if ok with renal No cardiac interventions planned other than optimal medical therapy for chronic CAD, diastolic dysfunction, HTN. HTN stable ESRD cont HD PAD hx b/l BKA stump looks clean Chronic anemia
--- NOTE | 2017-05-21 13:04 | CP.PCM.PN ---
Subjective - Date & Time of Evaluation Date of Evaluation: 05/21/17 Time of Evaluation: 13:01 - Subjective Subjective: Patient about to start hemodialysis now Vital signs stable Melendrez appeared to be stable No new event reported Objective - Vital Signs/Intake and Output Vital Signs (last 24 hours): Temp Pulse Resp BP Pulse Ox 98 F 78 18 94/66 L 95 05/21/17 07:35 05/21/17 07:35 05/21/17 07:35 05/21/17 07:35 05/21/17 07:35 Intake and Output: 05/21/17 05/21/17 06:59 18:59 Intake Total 120 Balance 120 - Medications Medications: Current Medications Acetaminophen (Tylenol 325mg Tab) 650 mg PO Q6 PRN PRN Reason: Fever >100.4 F Alprazolam (Xanax) 1 mg PO HS PRN PRN Reason: Anxiety Amlodipine Besylate (Norvasc) 10 mg PO DAILY [facility] Last Admin: 05/21/17 09:58 Dose: 10 mg Aspirin (Aspirin Chewable) 81 mg PO DAILY [facility] Last Admin: 05/21/17 09:58 Dose: 81 mg Calcitriol (Rocaltrol) 0.25 mcg PO TTS [facility] Last Admin: 05/21/17 09:58 Dose: 0.25 mcg Calcium Carbonate (Oscal) 500 mg PO BID [facility] Last Admin: 05/21/17 09:58 Dose: 500 mg Carvedilol (Coreg) 6.25 mg PO Q12 [facility] Last Admin: 05/21/17 09:58 Dose: 6.25 mg Diphenhydramine HCl (Benadryl) 25 mg PO Q8 PRN PRN Reason: Allergy symptoms Docusate Sodium (Colace) 100 mg PO BID PRN PRN Reason: Constipation Last Admin: 05/19/17 10:42 Dose: 100 mg Epoetin Tom (Procrit) 10,000 unit IV TTS [facility] Ergocalciferol (Drisdol 50,000 Intl Units Cap) 1 cap PO Q7D [facility] Last Admin: 05/19/17 10:42 Dose: 1 cap Fentanyl (Duragesic) 1 patch TD Q72H [facility] Last Admin: 05/19/17 15:34 Dose: Not Given Guaifenesin (Mucinex La) 600 mg PO BID [facility] Last Admin: 05/21/17 09:58 Dose: 600 mg Hydromorphone HCl (Dilaudid) 2 mg IVP Q4H PRN PRN Reason: severe pain Last Admin: 05/21/17 09:58 Dose: 2 mg Piperacillin Sod/Tazobactam (Sod 2.25 gm/ Sodium Chloride) 100 mls @ 200 mls/ hr IVPB Q6H [facility] Last Admin: 05/21/17 10:26 Dose: 200 mls/hr Insulin Human Regular (Novolin R) 0 unit SC ACHS [facility] PRN Reason: Protocol Last Admin: 05/21/17 07:17 Dose: Not Given Isosorbide Mononitrate (Imdur) 60 mg PO DAILY [facility] Last Admin: 05/21/17 09:58 Dose: 60 mg Pantoprazole Sodium (Protonix Ec Tab) 40 mg PO DAILY [facility] Last Admin: 05/21/17 09:58 Dose: 40 mg Rosuvastatin Calcium (Crestor) 10 mg PO HS [facility] Last Admin: 05/18/17 20:59 Dose: 10 mg Sertraline HCl (Zoloft) 50 mg PO DAILY [facility] Last Admin: 05/21/17 09:58 Dose: 50 mg Vitamin B Complex/Vit C/Folic Acid (Nephro-Courtney) 1 tab PO 0800 [facility] Last Admin: 05/21/17 09:59 Dose: 1 tab - Labs Labs: 05/19/17 06:59 05/17/17 16:24 - Constitutional Appears: No Acute Distress - ENT Exam ENT Exam: Mucous Membranes Moist - Respiratory Exam Respiratory Exam: absent: Chest Wall Tenderness - Cardiovascular Exam Cardiovascular Exam: absent: JVD, Rubs - GI/Abdominal Exam GI & Abdominal Exam: Normal Bowel Sounds - Extremities Exam Extremities Exam: absent: Calf Tenderness - Back Exam Back Exam: absent: CVA tenderness (L), CVA tenderness (R) - Neurological Exam Neurological Exam: Alert Assessment and Plan (1) Chronic kidney disease requiring chronic dialysis Assessment & Plan: Patient with end stage renal disease on maintenance hemodialysis 3 times a week Patient receiving dialysis now with ultrafiltration about 2000 mL Sodium bath about 138 Bicarbonate bath 34 Continue hemodialysis Patient has multitude to further problem including but not limited to below knee amputation bilateral and ESRD on HD HTN IDDM CAD/CABG/Lt atrial thrombus Status: Acute
[2017-05-21] MEDS: Epoetin Alfa 10,000 unit/ml Dialysis IV SCH (17:32)
[2017-05-21] MEDS: HYDROmorphone 0.5 mg/0.5 ml ISec IVP PRN ×2 (18:41→23:46)
--- NOTE | 2017-05-21 22:59 | CARD ---
APPROVED REPORT EKG Measurement Heart [id number] <Conclusion> Normal sinus rhythm ST & T wave abnormality, consider high lateral ischemia Abnormal ECG
[2017-05-22] MEDS: HYDROmorphone 0.5 mg/0.5 ml ISec IVP PRN ×4 (03:56→18:02)
[2017-05-22] MEDS: Piperacillin/Tazobact 2.25 GM in Sodium Chloride 100 ML IVPB SCH ×5 (03:59→22:11)
[2017-05-22] MEDS: (Novolin R) Insulin Human Regular 100 units/ml vial SC SCH ×5 (07:50→21:48)
[2017-05-22] MEDS: Multivitamin Vitamin B Complex (Nephro-Vite) Tab PO SCH (08:46)
[2017-05-22] MEDS: Pantoprazole 40 mg EC Tab PO SCH (10:40)
[2017-05-22] MEDS: guaiFENesin 600 mg ER Tab PO SCH ×2 (10:40→18:00)
--- NOTE | 2017-05-22 14:18 | CP.PCM.PN ---
Subjective - Date & Time of Evaluation Date of Evaluation: 05/22/17 Time of Evaluation: 14:16 - Subjective Subjective: No new complaints events reviewed Objective - Vital Signs/Intake and Output Vital Signs (last 24 hours): Temp Pulse Resp BP Pulse Ox 98.4 F 71 17 142/66 100 05/22/17 07:35 05/22/17 07:35 05/22/17 07:35 05/22/17 07:35 05/22/17 07:35 Intake and Output: 05/22/17 05/22/17 06:59 18:59 Intake Total 490 Balance 490 - Medications Medications: Current Medications Acetaminophen (Tylenol 325mg Tab) 650 mg PO Q6 PRN PRN Reason: Fever >100.4 F Alprazolam (Xanax) 1 mg PO HS PRN PRN Reason: Anxiety Amlodipine Besylate (Norvasc) 10 mg PO DAILY [facility] Last Admin: 05/22/17 10:39 Dose: 10 mg Aspirin (Aspirin Chewable) 81 mg PO DAILY [facility] Last Admin: 05/22/17 10:39 Dose: 81 mg Calcitriol (Rocaltrol) 0.25 mcg PO TTS [facility] Last Admin: 05/21/17 09:58 Dose: 0.25 mcg Calcium Carbonate (Oscal) 500 mg PO BID [facility] Last Admin: 05/22/17 10:40 Dose: 500 mg Carvedilol (Coreg) 6.25 mg PO Q12 [facility] Last Admin: 05/22/17 10:40 Dose: 6.25 mg Diphenhydramine HCl (Benadryl) 25 mg PO Q8 PRN PRN Reason: Allergy symptoms Docusate Sodium (Colace) 100 mg PO BID PRN PRN Reason: Constipation Last Admin: 05/19/17 10:42 Dose: 100 mg Epoetin Tom (Procrit) 10,000 unit IV TTS [facility] Last Admin: 05/21/17 17:32 Dose: 10,000 unit Ergocalciferol (Drisdol 50,000 Intl Units Cap) 1 cap PO Q7D [facility] Last Admin: 05/19/17 10:42 Dose: 1 cap Guaifenesin (Mucinex La) 600 mg PO BID [facility] Last Admin: 05/22/17 10:40 Dose: 600 mg Hydromorphone HCl (Dilaudid) 0.5 mg IVP Q6H PRN PRN Reason: severe pain Last Admin: 05/22/17 12:06 Dose: 0.5 mg Piperacillin Sod/Tazobactam (Sod 2.25 gm/ Sodium Chloride) 100 mls @ 200 mls/ hr IVPB Q6H [facility] Last Admin: 05/22/17 10:38 Dose: 200 mls/hr Insulin Human Regular (Novolin R) 0 unit SC ACHS [facility] PRN Reason: Protocol Last Admin: 05/22/17 12:13 Dose: 1 unit Isosorbide Mononitrate (Imdur) 60 mg PO DAILY [facility] Last Admin: 05/22/17 10:40 Dose: 60 mg Pantoprazole Sodium (Protonix Ec Tab) 40 mg PO DAILY [facility] Last Admin: 05/22/17 10:40 Dose: 40 mg Rosuvastatin Calcium (Crestor) 10 mg PO HS [facility] Last Admin: 05/21/17 22:25 Dose: 10 mg Sertraline HCl (Zoloft) 50 mg PO DAILY [facility] Last Admin: 05/22/17 10:40 Dose: 50 mg Vitamin B Complex/Vit C/Folic Acid (Nephro-Courtney) 1 tab PO 0800 [facility] Last Admin: 05/22/17 08:46 Dose: 1 tab - Labs Labs: 05/19/17 06:59 05/17/17 16:24 - Constitutional Appears: Chronically Ill - Head Exam Head Exam: ATRAUMATIC, NORMAL INSPECTION, NORMOCEPHALIC - Eye Exam Eye Exam: absent: Normal appearance - ENT Exam ENT Exam: Mucous Membranes Moist - Respiratory Exam Respiratory Exam: Clear to Ausculation Bilateral. absent: Rhonchi, Wheezes - Cardiovascular Exam Cardiovascular Exam: REGULAR RHYTHM, Murmur (3/6 SM at LUSB) - GI/Abdominal Exam GI & Abdominal Exam: Soft. absent: Tenderness - Extremities Exam Extremities Exam: Normal Inspection (b/l BKA) Assessment and Plan - Assessment and Plan (Free Text) Assessment: --> CP resolved HX of CAD > CABG > Failed grafts > PCI to RCA ( more thsn 5 years ago ) Normal LVEF with stage 3 diastolic dysfunction, mod LVH, mod Pulm HTN, infundibular PS mild-mod (last echo 04/2017) * Coronary anatomy has no potential for revascularization due to small diffuse CAD. * Current troponin is likely in part related to musculoskeletal causes, neuropathy, ESRD status, and or demand ischemia from anemia versus chronic microvascular disease. --> Parox Aflutter/Fib; hx of catheter relate thrombus/IE: resolved Patient with multiple transfusions and heme+ stool in past: deemed high risk for agressive AC coreg 6.25 BID --> increase to 12.5 BID if tolerated Imdur 60 Add ranexa 500 BID Norvasc 5 qd hyperkalemia on multiple admissions: challenge with ARB and monitor K+ if ok with renal No cardiac interventions planned other than optimal medical therapy for chronic CAD, diastolic dysfunction, HTN. HTN stable ESRD cont HD PAD hx b/l BKA stump looks clean Chronic anemia
--- NOTE | 2017-05-22 14:27 | CP.PCM.PN ---
Subjective - Date & Time of Evaluation Date of Evaluation: 05/22/17 Time of Evaluation: 03:25 - Subjective Subjective: Feels better. No sob Objective - Vital Signs/Intake and Output Vital Signs (last 24 hours): Temp Pulse Resp BP Pulse Ox 98.4 F 71 17 142/66 100 05/22/17 07:35 05/22/17 07:35 05/22/17 07:35 05/22/17 07:35 05/22/17 07:35 Intake and Output: 05/22/17 05/22/17 06:59 18:59 Intake Total 490 Balance 490 - Medications Medications: Current Medications Acetaminophen (Tylenol 325mg Tab) 650 mg PO Q6 PRN PRN Reason: Fever >100.4 F Alprazolam (Xanax) 1 mg PO HS PRN PRN Reason: Anxiety Amlodipine Besylate (Norvasc) 10 mg PO DAILY [facility] Last Admin: 05/22/17 10:39 Dose: 10 mg Aspirin (Aspirin Chewable) 81 mg PO DAILY [facility] Last Admin: 05/22/17 10:39 Dose: 81 mg Calcitriol (Rocaltrol) 0.25 mcg PO TTS [facility] Last Admin: 05/21/17 09:58 Dose: 0.25 mcg Calcium Carbonate (Oscal) 500 mg PO BID [facility] Last Admin: 05/22/17 10:40 Dose: 500 mg Carvedilol (Coreg) 6.25 mg PO Q12 [facility] Last Admin: 05/22/17 10:40 Dose: 6.25 mg Diphenhydramine HCl (Benadryl) 25 mg PO Q8 PRN PRN Reason: Allergy symptoms Docusate Sodium (Colace) 100 mg PO BID PRN PRN Reason: Constipation Last Admin: 05/19/17 10:42 Dose: 100 mg Epoetin Tom (Procrit) 10,000 unit IV TTS [facility] Last Admin: 05/21/17 17:32 Dose: 10,000 unit Ergocalciferol (Drisdol 50,000 Intl Units Cap) 1 cap PO Q7D [facility] Last Admin: 05/19/17 10:42 Dose: 1 cap Guaifenesin (Mucinex La) 600 mg PO BID [facility] Last Admin: 05/22/17 10:40 Dose: 600 mg Hydromorphone HCl (Dilaudid) 0.5 mg IVP Q6H PRN PRN Reason: severe pain Last Admin: 05/22/17 12:06 Dose: 0.5 mg Piperacillin Sod/Tazobactam (Sod 2.25 gm/ Sodium Chloride) 100 mls @ 200 mls/ hr IVPB Q6H [facility] Last Admin: 05/22/17 10:38 Dose: 200 mls/hr Insulin Human Regular (Novolin R) 0 unit SC ACHS [facility] PRN Reason: Protocol Last Admin: 05/22/17 12:13 Dose: 1 unit Isosorbide Mononitrate (Imdur) 60 mg PO DAILY [facility] Last Admin: 05/22/17 10:40 Dose: 60 mg Pantoprazole Sodium (Protonix Ec Tab) 40 mg PO DAILY [facility] Last Admin: 05/22/17 10:40 Dose: 40 mg Rosuvastatin Calcium (Crestor) 10 mg PO HS [facility] Last Admin: 05/21/17 22:25 Dose: 10 mg Sertraline HCl (Zoloft) 50 mg PO DAILY [facility] Last Admin: 05/22/17 10:40 Dose: 50 mg Vitamin B Complex/Vit C/Folic Acid (Nephro-Courtney) 1 tab PO 0800 [facility] Last Admin: 05/22/17 08:46 Dose: 1 tab - Labs Labs: 05/19/17 06:59 05/17/17 16:24 - Respiratory Exam Respiratory Exam: NORMAL BREATHING PATTERN Additional comments: Lungs clear - Cardiovascular Exam Cardiovascular Exam: REGULAR RHYTHM - Extremities Exam Additional comments: No edema
--- NOTE | 2017-05-22 16:22 | PN ---
DATE: 05/22/2017 SUBJECTIVE: The patient is seen. The patient is still complaining of pain, but not asking as much pain medication, although his dose of Dilaudid was reduced to 0.5 mg q.6 hours p.r.n. The patient is also on fentanyl patch and stating that it is not helping him, so he wants to discontinue it. The patient is also on Xanax p.r.n. and also Zoloft. PHYSICAL EXAMINATION: VITAL SIGNS: Temperature is 98.4 degrees, pulse rate 71, blood pressure 142/66, respirations 20, and oxygen saturation is 100%. REVIEW OF SYSTEMS: GENERAL: The patient is alert and oriented x3 sitting in his room close to baseline. SKIN: No diaphoresis. HEENT: The patient had not complained of headache or dizziness, still legally blind. RESPIRATORY: No dyspnea. CARDIOVASCULAR: No chest pain. GASTROINTESTINAL: Feeding. EXTREMITIES: The patient is complaining of chronic pain. The patient is bilateral amputee. MUSCULOSKELETAL: Weak. NEUROLOGIC: Alert and oriented x3. GENITOURINARY: Not complaining urinary problems. MENTAL STATUS EXAMINATION: Well-developed man who looks stated age, oriented x3, bilateral amputee. Mood is somatic. Affect is reactive. Speech is spontaneous. Thought process is coherent. Thought content, no overt psychosis. No suicidal or homicidal ideation. The patient has been compliant with his dialysis and medication. Attention and memory seems to be limited at times. Stated no psychosis. Insight and judgment is limited. Impulse control is fair at this time. IMPRESSION: History of recurrent depression, anxiety, history of drug-induced delirium from excessive intake of narcotic, as well as, history of pneumonia, diabetes, hypertension, and bilateral amputee. PLAN AND RECOMMENDATIONS: The patient is seen and medications are reviewed. We will discontinue the fentanyl patch, as the patient states it is not helping him. We will just continue the Dilaudid 0.5 mg IV q 6 hours p.r.n., which he states is helping him and also the Zoloft 50 mg daily and Xanax 1 mg at bedtime p.r.n. The patient has been manageable at this time. Dale Joseph, MD [facility] # [id number]
--- NOTE | 2017-05-22 18:06 | CP.PCM.PN ---
Subjective - Date & Time of Evaluation Date of Evaluation: 05/22/17 Time of Evaluation: 18:03 - Subjective Subjective: less cough sob bs ok Objective - Vital Signs/Intake and Output Vital Signs (last 24 hours): Temp Pulse Resp BP Pulse Ox 98.6 F 75 18 159/70 H 100 05/22/17 15:50 05/22/17 16:00 05/22/17 15:50 05/22/17 15:50 05/22/17 15:50 Intake and Output: 05/22/17 05/22/17 06:59 18:59 Intake Total 490 650 Balance 490 650 - Medications Medications: Current Medications Acetaminophen (Tylenol 325mg Tab) 650 mg PO Q6 PRN PRN Reason: Fever >100.4 F Alprazolam (Xanax) 1 mg PO HS PRN PRN Reason: Anxiety Amlodipine Besylate (Norvasc) 10 mg PO DAILY [facility] Last Admin: 05/22/17 10:39 Dose: 10 mg Aspirin (Aspirin Chewable) 81 mg PO DAILY [facility] Last Admin: 05/22/17 10:39 Dose: 81 mg Calcitriol (Rocaltrol) 0.25 mcg PO TTS [facility] Last Admin: 05/21/17 09:58 Dose: 0.25 mcg Calcium Carbonate (Oscal) 500 mg PO BID [facility] Last Admin: 05/22/17 18:00 Dose: 500 mg Carvedilol (Coreg) 6.25 mg PO Q12 [facility] Last Admin: 05/22/17 10:40 Dose: 6.25 mg Diphenhydramine HCl (Benadryl) 25 mg PO Q8 PRN PRN Reason: Allergy symptoms Docusate Sodium (Colace) 100 mg PO BID PRN PRN Reason: Constipation Last Admin: 05/19/17 10:42 Dose: 100 mg Epoetin Tom (Procrit) 10,000 unit IV TTS [facility] Last Admin: 05/21/17 17:32 Dose: 10,000 unit Ergocalciferol (Drisdol 50,000 Intl Units Cap) 1 cap PO Q7D [facility] Last Admin: 05/19/17 10:42 Dose: 1 cap Guaifenesin (Mucinex La) 600 mg PO BID [facility] Last Admin: 05/22/17 18:00 Dose: 600 mg Hydromorphone HCl (Dilaudid) 0.5 mg IVP Q6H PRN PRN Reason: severe pain Last Admin: 05/22/17 18:02 Dose: 0.5 mg Piperacillin Sod/Tazobactam (Sod 2.25 gm/ Sodium Chloride) 100 mls @ 200 mls/ hr IVPB Q6H [facility] Last Admin: 05/22/17 18:02 Dose: 200 mls/hr Insulin Human Regular (Novolin R) 0 unit SC ACHS [facility] PRN Reason: Protocol Last Admin: 05/22/17 18:01 Dose: 1 unit Isosorbide Mononitrate (Imdur) 60 mg PO DAILY [facility] Last Admin: 05/22/17 10:40 Dose: 60 mg Pantoprazole Sodium (Protonix Ec Tab) 40 mg PO DAILY [facility] Last Admin: 05/22/17 10:40 Dose: 40 mg Rosuvastatin Calcium (Crestor) 10 mg PO HS [facility] Last Admin: 05/21/17 22:25 Dose: 10 mg Sertraline HCl (Zoloft) 50 mg PO DAILY [facility] Last Admin: 05/22/17 10:40 Dose: 50 mg Vitamin B Complex/Vit C/Folic Acid (Nephro-Courtney) 1 tab PO 0800 [facility] Last Admin: 05/22/17 08:46 Dose: 1 tab - Labs Labs: 05/19/17 06:59 05/17/17 16:24 - Constitutional Appears: Non-toxic - Head Exam Head Exam: NORMAL INSPECTION - Eye Exam Eye Exam: Conjunctival injection Additional comments: legaly blind - ENT Exam ENT Exam: Mucous Membranes Dry - Neck Exam Neck Exam: Full ROM - Respiratory Exam Respiratory Exam: Decreased Breath Sounds, Rales - Cardiovascular Exam Cardiovascular Exam: REGULAR RHYTHM - GI/Abdominal Exam GI & Abdominal Exam: Soft - Rectal Exam Rectal Exam: NORMAL INSPECTION - Back Exam Back Exam: NORMAL INSPECTION - Psychiatric Exam Psychiatric exam: Normal Affect - Skin Skin Exam: Pallor Assessment and Plan - Assessment and Plan (Free Text) Assessment: ac pnumonia COPD ESRF DM CAD Plan: CONT PER MY D/C IN AM
[2017-05-23] MEDS: HYDROmorphone 0.5 mg/0.5 ml ISec IVP PRN ×4 (00:26→18:25)
[2017-05-23] MEDS: Piperacillin/Tazobact 2.25 GM in Sodium Chloride 100 ML IVPB SCH ×4 (03:05→22:29)
[2017-05-23] MEDS: Multivitamin Vitamin B Complex (Nephro-Vite) Tab PO SCH (08:17)
[2017-05-23] MEDS: (Novolin R) Insulin Human Regular 100 units/ml vial SC SCH ×3 (08:30→22:35)
[2017-05-23] MEDS: guaiFENesin 600 mg ER Tab PO SCH ×2 (11:00→18:24)
[2017-05-23] MEDS: Pantoprazole 40 mg EC Tab PO SCH (11:00)
--- NOTE | 2017-05-23 12:12 | CP.PCM.PN ---
Subjective - Date & Time of Evaluation Date of Evaluation: 05/23/17 Time of Evaluation: 12:00 - Subjective Subjective: Appears comfortable No sob noted Objective - Vital Signs/Intake and Output Vital Signs (last 24 hours): Temp Pulse Resp BP Pulse Ox 99.1 F 83 18 190/68 H 98 05/23/17 08:00 05/23/17 08:00 05/23/17 08:00 05/23/17 08:00 05/23/17 08:00 Intake and Output: 05/23/17 05/23/17 06:59 18:59 Intake Total 250 Balance 250 - Medications Medications: Current Medications Acetaminophen (Tylenol 325mg Tab) 650 mg PO Q6 PRN PRN Reason: Fever >100.4 F Alprazolam (Xanax) 1 mg PO HS PRN PRN Reason: Anxiety Amlodipine Besylate (Norvasc) 10 mg PO DAILY [facility] Last Admin: 05/23/17 11:00 Dose: Not Given Aspirin (Aspirin Chewable) 81 mg PO DAILY [facility] Last Admin: 05/23/17 11:00 Dose: 81 mg Calcitriol (Rocaltrol) 0.25 mcg PO TTS [facility] Last Admin: 05/23/17 11:00 Dose: 0.25 mcg Calcium Carbonate (Oscal) 500 mg PO BID [facility] Last Admin: 05/23/17 11:00 Dose: 500 mg Carvedilol (Coreg) 6.25 mg PO Q12 [facility] Last Admin: 05/23/17 11:00 Dose: Not Given Diphenhydramine HCl (Benadryl) 25 mg PO Q8 PRN PRN Reason: Allergy symptoms Docusate Sodium (Colace) 100 mg PO BID PRN PRN Reason: Constipation Last Admin: 05/19/17 10:42 Dose: 100 mg Epoetin Tom (Procrit) 10,000 unit IV TTS [facility] Last Admin: 05/21/17 17:32 Dose: 10,000 unit Ergocalciferol (Drisdol 50,000 Intl Units Cap) 1 cap PO Q7D [facility] Last Admin: 05/19/17 10:42 Dose: 1 cap Guaifenesin (Mucinex La) 600 mg PO BID [facility] Last Admin: 05/23/17 11:00 Dose: 600 mg Hydromorphone HCl (Dilaudid) 0.5 mg IVP Q6H PRN PRN Reason: severe pain Last Admin: 05/23/17 06:34 Dose: 0.5 mg Piperacillin Sod/Tazobactam (Sod 2.25 gm/ Sodium Chloride) 100 mls @ 200 mls/ hr IVPB Q6H [facility] Last Admin: 05/23/17 11:00 Dose: 200 mls/hr Insulin Human Regular (Novolin R) 0 unit SC ACHS [facility] PRN Reason: Protocol Last Admin: 05/23/17 08:30 Dose: Not Given Isosorbide Mononitrate (Imdur) 60 mg PO DAILY [facility] Last Admin: 05/23/17 11:00 Dose: 60 mg Pantoprazole Sodium (Protonix Ec Tab) 40 mg PO DAILY [facility] Last Admin: 05/23/17 11:00 Dose: 40 mg Rosuvastatin Calcium (Crestor) 10 mg PO HS [facility] Last Admin: 05/22/17 22:11 Dose: 10 mg Sertraline HCl (Zoloft) 50 mg PO DAILY [facility] Last Admin: 05/23/17 11:00 Dose: 50 mg Vitamin B Complex/Vit C/Folic Acid (Nephro-Courtney) 1 tab PO 0800 [facility] Last Admin: 05/23/17 08:17 Dose: 1 tab - Labs Labs: 05/19/17 06:59 05/17/17 16:24 - Respiratory Exam Additional comments: Lungs clear - Cardiovascular Exam Cardiovascular Exam: REGULAR RHYTHM - Extremities Exam Additional comments: B/L BKA Assessment and Plan - Assessment and Plan (Free Text) Assessment: ESRD HTN CAD, Rt atrial thrombus IDDM Plan: Stable on dialysis. Continue HD per schedule Labs with HD
--- NOTE | 2017-05-23 13:15 | CP.PCM.PN ---
Subjective - Date & Time of Evaluation Date of Evaluation: 05/23/17 Time of Evaluation: 13:13 - Subjective Subjective: Feels better No new complaints No CP or resting SOB EXAM: unchanged, no JVD, clear lungs, B/L BKA, warm skin, legally blind Objective - Vital Signs/Intake and Output Vital Signs (last 24 hours): Temp Pulse Resp BP Pulse Ox 99.1 F 83 18 190/68 H 98 05/23/17 08:00 05/23/17 08:00 05/23/17 08:00 05/23/17 08:00 05/23/17 08:00 Intake and Output: 05/23/17 05/23/17 06:59 18:59 Intake Total 250 Balance 250 - Medications Medications: Current Medications Acetaminophen (Tylenol 325mg Tab) 650 mg PO Q6 PRN PRN Reason: Fever >100.4 F Alprazolam (Xanax) 1 mg PO HS PRN PRN Reason: Anxiety Amlodipine Besylate (Norvasc) 10 mg PO DAILY [facility] Last Admin: 05/23/17 11:00 Dose: Not Given Aspirin (Aspirin Chewable) 81 mg PO DAILY [facility] Last Admin: 05/23/17 11:00 Dose: 81 mg Calcitriol (Rocaltrol) 0.25 mcg PO TTS [facility] Last Admin: 05/23/17 11:00 Dose: 0.25 mcg Calcium Carbonate (Oscal) 500 mg PO BID [facility] Last Admin: 05/23/17 11:00 Dose: 500 mg Carvedilol (Coreg) 6.25 mg PO Q12 [facility] Last Admin: 05/23/17 11:00 Dose: Not Given Diphenhydramine HCl (Benadryl) 25 mg PO Q8 PRN PRN Reason: Allergy symptoms Docusate Sodium (Colace) 100 mg PO BID PRN PRN Reason: Constipation Last Admin: 05/19/17 10:42 Dose: 100 mg Epoetin Tom (Procrit) 10,000 unit IV TTS [facility] Last Admin: 05/21/17 17:32 Dose: 10,000 unit Ergocalciferol (Drisdol 50,000 Intl Units Cap) 1 cap PO Q7D [facility] Last Admin: 05/19/17 10:42 Dose: 1 cap Guaifenesin (Mucinex La) 600 mg PO BID [facility] Last Admin: 05/23/17 11:00 Dose: 600 mg Hydromorphone HCl (Dilaudid) 0.5 mg IVP Q6H PRN PRN Reason: severe pain Last Admin: 05/23/17 12:44 Dose: 0.5 mg Piperacillin Sod/Tazobactam (Sod 2.25 gm/ Sodium Chloride) 100 mls @ 200 mls/ hr IVPB Q6H [facility] Last Admin: 05/23/17 11:00 Dose: 200 mls/hr Insulin Human Regular (Novolin R) 0 unit SC ACHS [facility] PRN Reason: Protocol Last Admin: 05/23/17 08:30 Dose: Not Given Isosorbide Mononitrate (Imdur) 60 mg PO DAILY [facility] Last Admin: 05/23/17 11:00 Dose: 60 mg Pantoprazole Sodium (Protonix Ec Tab) 40 mg PO DAILY [facility] Last Admin: 05/23/17 11:00 Dose: 40 mg Rosuvastatin Calcium (Crestor) 10 mg PO HS [facility] Last Admin: 05/22/17 22:11 Dose: 10 mg Sertraline HCl (Zoloft) 50 mg PO DAILY [facility] Last Admin: 05/23/17 11:00 Dose: 50 mg Vitamin B Complex/Vit C/Folic Acid (Nephro-Courtney) 1 tab PO 0800 [facility] Last Admin: 05/23/17 08:17 Dose: 1 tab - Labs Labs: 05/19/17 06:59 05/17/17 16:24 Assessment and Plan - Assessment and Plan (Free Text) Assessment: --> CP resolved HX of CAD > CABG > Failed grafts > PCI to RCA ( more thsn 5 years ago ) Normal LVEF with stage 3 diastolic dysfunction, mod LVH, mod Pulm HTN, infundibular PS mild-mod (last echo 04/2017) * Coronary anatomy has no potential for revascularization due to small diffuse CAD. * Current troponin is likely in part related to musculoskeletal causes, neuropathy, ESRD status, and or demand ischemia from anemia versus chronic microvascular disease. --> Parox Aflutter/Fib; hx of catheter relate thrombus/IE: resolved Patient with multiple transfusions and heme+ stool in past: deemed high risk for agressive AC coreg 6.25 BID --> increase to 12.5 BID if tolerated Imdur 60 Add ranexa 500 BID Norvasc 5 qd hyperkalemia on multiple admissions: challenge with ARB and monitor K+ if ok with renal No cardiac interventions planned other than optimal medical therapy for chronic CAD, diastolic dysfunction, HTN. HTN stable ESRD cont HD PAD hx b/l BKA stump looks clean Chronic anemia D/C planning from cardiac standpoint.
[2017-05-23 14:07] LABS: HEMATOCRIT 21.5 % (35.0-51.0); MEAN CELL VOLUME 92.2 fL (80.0-94.0); MEAN CORPUSCULAR HEMOGLOBIN 29.5 pg (27.0-31.0); MEAN PLATELET VOLUME 8.7 fL (7.2-11.7); RED CELL DISTRIBUTION WIDTH 16.8 % (11.5-14.5); WHITE BLOOD COUNT 9.9 K/uL (4.8-10.8)
[2017-05-23 14:17] LABS: CALCIUM 8.2 mg/dl (8.6-10.4); PHOSPHOROUS 3.7 mg/dL (2.5-4.5)
[2017-05-23] MEDS: Epoetin Alfa 10,000 unit/ml Dialysis IV SCH (16:04)
--- NOTE | 2017-05-23 16:17 | CP.PCM.PN ---
Subjective - Date & Time of Evaluation Date of Evaluation: 05/23/17 Time of Evaluation: 16:15 - Subjective Subjective: pt weeke less cough having dialysis now last hgb 6.9 will repeate if still low will get transfusion Objective - Vital Signs/Intake and Output Vital Signs (last 24 hours): Temp Pulse Resp BP Pulse Ox 99.1 F 83 18 190/68 H 98 05/23/17 08:00 05/23/17 08:00 05/23/17 08:00 05/23/17 08:00 05/23/17 08:00 Intake and Output: 05/23/17 05/23/17 06:59 18:59 Intake Total 250 550 Balance 250 550 - Medications Medications: Current Medications Acetaminophen (Tylenol 325mg Tab) 650 mg PO Q6 PRN PRN Reason: Fever >100.4 F Alprazolam (Xanax) 1 mg PO HS PRN PRN Reason: Anxiety Amlodipine Besylate (Norvasc) 10 mg PO DAILY [facility] Last Admin: 05/23/17 11:00 Dose: Not Given Aspirin (Aspirin Chewable) 81 mg PO DAILY [facility] Last Admin: 05/23/17 11:00 Dose: 81 mg Calcitriol (Rocaltrol) 0.25 mcg PO TTS [facility] Last Admin: 05/23/17 11:00 Dose: 0.25 mcg Calcium Carbonate (Oscal) 500 mg PO BID [facility] Last Admin: 05/23/17 11:00 Dose: 500 mg Carvedilol (Coreg) 6.25 mg PO Q12 [facility] Last Admin: 05/23/17 11:00 Dose: Not Given Diphenhydramine HCl (Benadryl) 25 mg PO Q8 PRN PRN Reason: Allergy symptoms Docusate Sodium (Colace) 100 mg PO BID PRN PRN Reason: Constipation Last Admin: 05/19/17 10:42 Dose: 100 mg Epoetin Tom (Procrit) 10,000 unit IV TTS [facility] Last Admin: 05/23/17 16:04 Dose: 10,000 unit Ergocalciferol (Drisdol 50,000 Intl Units Cap) 1 cap PO Q7D [facility] Last Admin: 05/19/17 10:42 Dose: 1 cap Guaifenesin (Mucinex La) 600 mg PO BID [facility] Last Admin: 05/23/17 11:00 Dose: 600 mg Heparin Sodium (Porcine) (Heparin) 4,700 units IVP TTS [facility] Hydromorphone HCl (Dilaudid) 0.5 mg IVP Q6H PRN PRN Reason: severe pain Last Admin: 05/23/17 12:44 Dose: 0.5 mg Piperacillin Sod/Tazobactam (Sod 2.25 gm/ Sodium Chloride) 100 mls @ 200 mls/ hr IVPB Q6H [facility] Last Admin: 05/23/17 11:00 Dose: 200 mls/hr Insulin Human Regular (Novolin R) 0 unit SC ACHS [facility] PRN Reason: Protocol Last Admin: 05/23/17 08:30 Dose: Not Given Isosorbide Mononitrate (Imdur) 60 mg PO DAILY [facility] Last Admin: 05/23/17 11:00 Dose: 60 mg Pantoprazole Sodium (Protonix Ec Tab) 40 mg PO DAILY [facility] Last Admin: 05/23/17 11:00 Dose: 40 mg Rosuvastatin Calcium (Crestor) 10 mg PO HS [facility] Last Admin: 05/22/17 22:11 Dose: 10 mg Sertraline HCl (Zoloft) 50 mg PO DAILY [facility] Last Admin: 05/23/17 11:00 Dose: 50 mg Vitamin B Complex/Vit C/Folic Acid (Nephro-Courtney) 1 tab PO 0800 [facility] Last Admin: 05/23/17 08:17 Dose: 1 tab - Labs Labs: 05/23/17 13:58 05/23/17 13:58 - Constitutional Appears: Non-toxic - Head Exam Head Exam: ATRAUMATIC - Eye Exam Eye Exam: Conjunctival injection - ENT Exam ENT Exam: Mucous Membranes Dry - Neck Exam Neck Exam: Full ROM - Respiratory Exam Respiratory Exam: Decreased Breath Sounds - Cardiovascular Exam Cardiovascular Exam: REGULAR RHYTHM - GI/Abdominal Exam GI & Abdominal Exam: Soft - Rectal Exam Rectal Exam: NORMAL INSPECTION - Back Exam Back Exam: CVA tenderness (L) - Psychiatric Exam Psychiatric exam: Depressed - Skin Skin Exam: Pallor Assessment and Plan - Assessment and Plan (Free Text) Assessment: aneamia severe ESRF PNUMONIA DM CAD Plan: REPEATE LAB STAT
[2017-05-23 16:38] LABS: HEMATOCRIT 24.6 % (35.0-51.0)
--- NOTE | 2017-05-23 16:38 | PN ---
DATE: SUBJECTIVE: The patient is seen. The patient is doing much better. The patient states he wants to go home. The patient has been off the fentanyl patch. He states he wants to go home. He is asking for prescriptions for Xanax and sertraline. REVIEW OF SYSTEMS: VITAL SIGNS: Temperature is 99.1, pulse is 83, blood pressure is 190/68, respirations 18, and oxygen saturation 98%. GENERAL: The patient is alert, oriented x 3 and seen in his room. He said he wants to go home. SKIN: No diaphoresis. HEENT: The patient is legally blind. No headache. NECK: Supple. RESPIRATORY: No dyspnea. CARDIOVASCULAR: No chest pain. GASTROINTESTINAL: He is eating better. EXTREMITIES: He has chronic pain, but controlled with medications. The patient has bilateral amputee. NEUROLOGIC: Alert and oriented x 3. GENITOURINARY: No dysuria MENTAL STATUS EXAMINATION: A well-developed male, who looks stated age, alert and oriented x3. Mood is calmer. Affect is reactive. Speech is spontaneous. The patient wants to go home. Thought process, coherent. Thought content, no overt psychosis. No suicidal or homicidal ideation. Attention and memory seems to be fair. Insight and judgment limited. Impulse control is fair at this time. IMPRESSION: History of recurrent depression, anxiety, history of drug-induced delirium, pneumonia, diabetes. PLAN AND RECOMMENDATIONS: The patient is seen. Medications reviewed. The patient is stable to go home. At this time, we will continue Zoloft and Xanax as ordered. Dale Joseph MD MARIANN
[2017-05-23] MEDS ORDERED: HYDROmorphone 0.5 mg/0.5 ml ISec IVP STA (22:41)
[2017-05-24] MEDS: Piperacillin/Tazobact 2.25 GM in Sodium Chloride 100 ML IVPB SCH (04:15)
[2017-05-24] MEDS: HYDROmorphone 0.5 mg/0.5 ml ISec IVP PRN ×4 (04:38→22:54)
[2017-05-24] MEDS: (Novolin R) Insulin Human Regular 100 units/ml vial SC SCH ×4 (07:45→21:39)
[2017-05-24 08:09] LABS: BASO # 0.1 K/uL (0.0-0.2); BASO % 1.1 % (0.0-2.0); EOS % 12.4 % (0.0-4.0); HEMATOCRIT 23.3 % (35.0-51.0); LYMPH # 1.5 K/uL (1.0-4.3); LYMPH % 18.4 % (20.0-40.0); MEAN CELL VOLUME 90.8 fL (80.0-94.0); MEAN CORPUSCULAR HEMOGLOBIN 29.4 pg (27.0-31.0); MEAN CORPUSCULAR HGB CONC 32.4 g/dL (33.0-37.0); MEAN PLATELET VOLUME 8.5 fL (7.2-11.7); MONO # 0.9 K/uL (0.0-0.8); MONO % 11.4 % (0.0-10.0); RED CELL DISTRIBUTION WIDTH 16.9 % (11.5-14.5)
[2017-05-24] MEDS: Multivitamin Vitamin B Complex (Nephro-Vite) Tab PO SCH (09:00)
--- NOTE | 2017-05-24 09:33 | CP.PCM.PN ---
Subjective - Date & Time of Evaluation Date of Evaluation: 05/24/17 Time of Evaluation: 09:30 - Subjective Subjective: pt c/o of pain allover his body cough is beter aneamia 7 .6 Objective - Vital Signs/Intake and Output Vital Signs (last 24 hours): Temp Pulse Resp BP Pulse Ox 98.2 F 69 18 162/78 H 100 05/24/17 07:30 05/24/17 07:30 05/24/17 07:30 05/24/17 07:30 05/24/17 07:30 - Medications Medications: Current Medications Acetaminophen (Tylenol 325mg Tab) 650 mg PO Q6 PRN PRN Reason: Fever >100.4 F Alprazolam (Xanax) 1 mg PO HS PRN PRN Reason: Anxiety Amlodipine Besylate (Norvasc) 10 mg PO DAILY [facility] Last Admin: 05/23/17 11:00 Dose: Not Given Aspirin (Aspirin Chewable) 81 mg PO DAILY [facility] Last Admin: 05/23/17 11:00 Dose: 81 mg Calcitriol (Rocaltrol) 0.25 mcg PO TTS [facility] Last Admin: 05/23/17 11:00 Dose: 0.25 mcg Calcium Carbonate (Oscal) 500 mg PO BID [facility] Last Admin: 05/23/17 18:24 Dose: 500 mg Carvedilol (Coreg) 6.25 mg PO Q12 [facility] Last Admin: 05/23/17 22:29 Dose: 6.25 mg Diphenhydramine HCl (Benadryl) 25 mg PO Q8 PRN PRN Reason: Allergy symptoms Docusate Sodium (Colace) 100 mg PO BID PRN PRN Reason: Constipation Last Admin: 05/23/17 18:24 Dose: 100 mg Epoetin Tom (Procrit) 10,000 unit IV TTS [facility] Last Admin: 05/23/17 16:04 Dose: 10,000 unit Ergocalciferol (Drisdol 50,000 Intl Units Cap) 1 cap PO Q7D [facility] Last Admin: 05/19/17 10:42 Dose: 1 cap Guaifenesin (Mucinex La) 600 mg PO BID [facility] Last Admin: 05/23/17 18:24 Dose: 600 mg Heparin Sodium (Porcine) (Heparin) 4,700 units IVP TTS [facility] Last Admin: 05/23/17 16:48 Dose: 4,700 units Hydromorphone HCl (Dilaudid) 0.5 mg IVP Q6H PRN PRN Reason: severe pain Last Admin: 05/24/17 04:38 Dose: 0.5 mg Piperacillin Sod/Tazobactam (Sod 2.25 gm/ Sodium Chloride) 100 mls @ 200 mls/ hr IVPB Q6H [facility] Last Admin: 05/24/17 04:15 Dose: 200 mls/hr Insulin Human Regular (Novolin R) 0 unit SC ACHS [facility] PRN Reason: Protocol Last Admin: 05/24/17 07:45 Dose: Not Given Isosorbide Mononitrate (Imdur) 60 mg PO DAILY [facility] Last Admin: 05/23/17 11:00 Dose: 60 mg Pantoprazole Sodium (Protonix Ec Tab) 40 mg PO DAILY [facility] Last Admin: 05/23/17 11:00 Dose: 40 mg Rosuvastatin Calcium (Crestor) 10 mg PO HS [facility] Last Admin: 05/23/17 22:29 Dose: 10 mg Sertraline HCl (Zoloft) 50 mg PO DAILY [facility] Last Admin: 05/23/17 11:00 Dose: 50 mg Vitamin B Complex/Vit C/Folic Acid (Nephro-Courtney) 1 tab PO 0800 [facility] Last Admin: 05/23/17 08:17 Dose: 1 tab - Labs Labs: 05/24/17 08:00 05/23/17 13:58 - Constitutional Appears: Non-toxic - Head Exam Head Exam: ATRAUMATIC - Eye Exam Eye Exam: Conjunctival injection - ENT Exam ENT Exam: Mucous Membranes Moist - Neck Exam Neck Exam: Full ROM - Respiratory Exam Respiratory Exam: Decreased Breath Sounds - Cardiovascular Exam Cardiovascular Exam: REGULAR RHYTHM - GI/Abdominal Exam GI & Abdominal Exam: Normal Bowel Sounds - Rectal Exam Rectal Exam: Deferred - Back Exam Back Exam: CVA tenderness (L) - Psychiatric Exam Psychiatric exam: Depressed - Skin Skin Exam: Pallor Assessment and Plan - Assessment and Plan (Free Text) Assessment: chronic pain aneamia cad copd dm s/p ac pmumonia can be discharged today Plan: dc
[2017-05-24] MEDS: Pantoprazole 40 mg EC Tab PO SCH (10:38)
[2017-05-24] MEDS: guaiFENesin 600 mg ER Tab PO SCH ×2 (10:39→20:50)
--- NOTE | 2017-05-24 11:17 | CP.PCM.PN ---
Subjective - Date & Time of Evaluation Date of Evaluation: 05/24/17 Time of Evaluation: 11:16 - Subjective Subjective: Events reviewed Objective - Vital Signs/Intake and Output Vital Signs (last 24 hours): Temp Pulse Resp BP Pulse Ox 98.2 F 69 18 162/78 H 100 05/24/17 07:30 05/24/17 07:30 05/24/17 07:30 05/24/17 07:30 05/24/17 07:30 - Medications Medications: Current Medications Acetaminophen (Tylenol 325mg Tab) 650 mg PO Q6 PRN PRN Reason: Fever >100.4 F Alprazolam (Xanax) 1 mg PO HS PRN PRN Reason: Anxiety Amlodipine Besylate (Norvasc) 10 mg PO DAILY [facility] Last Admin: 05/24/17 10:39 Dose: 10 mg Aspirin (Aspirin Chewable) 81 mg PO DAILY [facility] Last Admin: 05/24/17 10:38 Dose: 81 mg Calcitriol (Rocaltrol) 0.25 mcg PO TTS [facility] Last Admin: 05/23/17 11:00 Dose: 0.25 mcg Calcium Carbonate (Oscal) 500 mg PO BID [facility] Last Admin: 05/24/17 10:38 Dose: 500 mg Carvedilol (Coreg) 6.25 mg PO Q12 [facility] Last Admin: 05/24/17 10:38 Dose: 6.25 mg Diphenhydramine HCl (Benadryl) 25 mg PO Q8 PRN PRN Reason: Allergy symptoms Docusate Sodium (Colace) 100 mg PO BID PRN PRN Reason: Constipation Last Admin: 05/23/17 18:24 Dose: 100 mg Epoetin Tom (Procrit) 10,000 unit IV TTS [facility] Last Admin: 05/23/17 16:04 Dose: 10,000 unit Ergocalciferol (Drisdol 50,000 Intl Units Cap) 1 cap PO Q7D [facility] Last Admin: 05/19/17 10:42 Dose: 1 cap Guaifenesin (Mucinex La) 600 mg PO BID [facility] Last Admin: 05/24/17 10:39 Dose: 600 mg Heparin Sodium (Porcine) (Heparin) 4,700 units IVP TTS [facility] Last Admin: 05/23/17 16:48 Dose: 4,700 units Hydromorphone HCl (Dilaudid) 0.5 mg IVP Q6H PRN PRN Reason: severe pain Last Admin: 05/24/17 10:36 Dose: 0.5 mg Insulin Human Regular (Novolin R) 0 unit SC ACHS [facility] PRN Reason: Protocol Last Admin: 05/24/17 07:45 Dose: Not Given Isosorbide Mononitrate (Imdur) 60 mg PO DAILY [facility] Last Admin: 05/24/17 10:38 Dose: 60 mg Moxifloxacin HCl (Avelox) 400 mg PO DAILY [facility] Last Admin: 05/24/17 10:48 Dose: 400 mg Pantoprazole Sodium (Protonix Ec Tab) 40 mg PO DAILY [facility] Last Admin: 05/24/17 10:38 Dose: 40 mg Rosuvastatin Calcium (Crestor) 10 mg PO HS [facility] Last Admin: 05/23/17 22:29 Dose: 10 mg Sertraline HCl (Zoloft) 50 mg PO DAILY [facility] Last Admin: 05/24/17 10:38 Dose: 50 mg Vitamin B Complex/Vit C/Folic Acid (Nephro-Courtney) 1 tab PO 0800 [facility] Last Admin: 05/24/17 09:00 Dose: 1 tab - Labs Labs: 05/24/17 08:00 05/23/17 13:58 Assessment and Plan - Assessment and Plan (Free Text) Assessment: Assessment: --> CP resolved HX of CAD > CABG > Failed grafts > PCI to RCA ( more thsn 5 years ago ) Normal LVEF with stage 3 diastolic dysfunction, mod LVH, mod Pulm HTN, infundibular PS mild-mod (last echo 04/2017) * Coronary anatomy has no potential for revascularization due to small diffuse CAD. * Current troponin is likely in part related to musculoskeletal causes, neuropathy, ESRD status, and or demand ischemia from anemia versus chronic microvascular disease. --> Parox Aflutter/Fib; hx of catheter relate thrombus/IE: resolved Patient with multiple transfusions and heme+ stool in past: deemed high risk for agressive AC coreg 6.25 BID --> increase to 12.5 BID if tolerated Imdur 60 Add ranexa 500 BID Norvasc 5 qd hyperkalemia on multiple admissions: challenge with ARB and monitor K+ if ok with renal No cardiac interventions planned other than optimal medical therapy for chronic CAD, diastolic dysfunction, HTN. HTN stable ESRD cont HD PAD hx b/l BKA stump looks clean Chronic anemia D/C planning from cardiac standpoint.
--- NOTE | 2017-05-24 14:36 | PCM.HF ---
Heart Failure Core Measure - Heart Failure Ejection Fraction: 40 % or Greater (EF >70%) RAÚL Inhibitor Prescribed: No Contraindication/Reason for not providing: ESRD Beta-Andrew Prescribed: Carvedilol Angiotensin II Receptor Andrew Prescribed: No Contraindication/Reason for not providing: ESRD AnticoagulationTherapy for Atrial Fibrillation/Atrialflutter: No Contraindication/Reason for not providing: Bleeds easily Aldosterone Antagonist Prescribed: No Contraindication/Reason for not providing: renal dysfunction Hydralazine Nitrate Prescribed: No Contraindication/Reason for not providing: low BP/ EF >40% Implantable Cardioverter Defibrillator Therapy: No Contraindication/Reason for not providing: EF >40% Cardiac Resynchronization Therapy Prescribed: No Contraindication/Reason for not providing: not indicated - Follow up Will be discharged to: Home Follow Up Date (must be within 7 days from discharge): 05/28/17 Follow Up Time: 09:00
--- NOTE | 2017-05-24 16:50 | PN ---
DATE: SUBJECTIVE: The patient is seen. The patient is at baseline. He said he does not want to go home today, he wants to go home tomorrow after dialysis. The patient also was asking for his pain meds to be increased, but I told him that he needs to take it as prescribed as the patient is already on Dilaudid 0.5 q. 6 hours p.r.n. PHYSICAL EXAMINATION VITAL SIGNS: Temperature is 98.2, pulse is 69, blood pressure 162/78, respirations 18, oxygen saturation 100% on nasal cannula. REVIEW OF SYSTEMS: GENERAL: The patient alert and oriented x3. Seen in his room. Still med seeking. SKIN: No diaphoresis. HEENT: Legally blind. No headache. NECK: Supple. RESPIRATORY: No dyspnea. CARDIOVASCULAR: No chest pain. GASTROINTESTINAL: The patient is eating. EXTREMITIES: Bilateral amputee. He has chronic pain secondary to neuropathy. MUSCULOSKELETAL: Weak. NEUROLOGIC: Alert and oriented x3. GENITOURINARY: No urinary problems. MENTAL STATUS EXAMINATION: Well-developed male who looks stated age, oriented x3. Mood is somatic, anxious, med seeking. Affect is reactive. Speech is spontaneous. Thought process is coherent. Thought content, the patient has no psychosis. No suicidal or homicidal ideation. Attention and memory seems to be limited. Impulse control is fair at this time. IMPRESSION: History of recurrent depression and anxiety, history of drug induced delirium from pain medications, bilateral amputee, congestive heart failure, diabetes, end-stage renal disease on dialysis. PLAN AND RECOMMENDATION: The patient is seen and meds reviewed. Continue present psych meds. Continue pain meds as ordered. The patient can be discharged once medically cleared. Dale Joseph MD
[2017-05-25] MEDS: HYDROmorphone 0.5 mg/0.5 ml ISec IVP PRN ×3 (06:06→18:20)
[2017-05-25] MEDS: (Novolin R) Insulin Human Regular 100 units/ml vial SC SCH ×3 (08:13→17:06)
[2017-05-25] MEDS ORDERED: EPOETIN ALFA 4,000 UNIT/ML ML Dialysis IV ONE ×2 (10:00→12:30)
[2017-05-25] MEDS ORDERED: Epoetin Alfa 10,000 unit/ml Dialysis IV SCH ×2 (10:00)
[2017-05-25] MEDS: Multivitamin Vitamin B Complex (Nephro-Vite) Tab PO SCH (10:07)
[2017-05-25] MEDS: Pantoprazole 40 mg EC Tab PO SCH (10:07)
[2017-05-25] MEDS: guaiFENesin 600 mg ER Tab PO SCH ×2 (10:07→18:20)
[2017-05-25 12:18] LABS: BASO # 0.1 K/uL (0.0-0.2); EOS # 1.2 K/uL (0.0-0.7); EOS % 13.7 % (0.0-4.0); HEMATOCRIT 24.6 % (35.0-51.0); LYMPH # 1.2 K/uL (1.0-4.3); LYMPH % 13.5 % (20.0-40.0); MEAN CELL VOLUME 90.2 fL (80.0-94.0); MEAN CORPUSCULAR HEMOGLOBIN 29.5 pg (27.0-31.0); MEAN CORPUSCULAR HGB CONC 32.7 g/dL (33.0-37.0); MEAN PLATELET VOLUME 8.5 fL (7.2-11.7); MONO # 0.8 K/uL (0.0-0.8); MONO % 9.2 % (0.0-10.0); RED CELL DISTRIBUTION WIDTH 17.3 % (11.5-14.5); WHITE BLOOD COUNT 8.7 K/uL (4.8-10.8)
[2017-05-25 12:56] VITALS: PULSE 72; RESP 20
[2017-05-25 17:32] VITALS: BP 126/63; TEMP 98.3; O2SAT 97
--- NOTE | 2017-05-27 09:35 | PN ---
DATE: CHIEF COMPLAINT: None at this time. HISTORY OF PRESENT ILLNESS AND REVIEW OF SYSTEMS: The patient feels, otherwise, well. Denies any nausea, vomiting, chest pain, palpitation, shortness of breath, cough, phlegm, but reported lower back pain. He has been treated for pneumonia at this time. PHYSICAL EXAMINATION GENERAL: The patient appears comfortable, not in acute distress, but uncooperative. VITAL SIGNS: Noted stable. Afebrile. Pulse 69, blood pressure 162/78. CARDIOVASCULAR: S1 and S2 normal. No murmur or rub. LUNGS: Bilateral vesicular breath sounds, clear. ABDOMEN: Soft, nontender. No organomegaly could be appreciated. EXTREMITIES: Bilateral BKA, but otherwise no edema. PSYCHIATRIC: The patient is pleasant and cooperative. Judgment is appropriate. The patient has access to PermCatNeumitra. NEUROLOGIC: A and O x3. No focal deficit. The patient is also visually impaired and blind. LABORATORY DATA: Workup showed white blood cell count is 8, hemoglobin 7.6, platelet count 301. Sodium is 141, potassium is 4, creatinine is 4.5, glucose is 155. ASSESSMENT: 1. Pneumonia. 2. End-stage renal disease, on hemodialysis via PermCath. 3. Mild troponin elevation, seen by Cardiology. 4. History of diabetes mellitus, hypertension, anemia, hypophosphatemia, secondary hyperparathyroidism, paroxysmal atrial flutter/atrial fibrillation, chronic coronary artery disease, diastolic congestive heart failure. RECOMMENDATIONS: No dialysis today. The patient will plan for dialysis tomorrow. The patient is on Epogen dialysis. Continue with the same. Also on vitamin D supplementation. The patient also gets Rocaltrol for his secondary hyperparathyroidism. Then, continue antibiotic as per the primary team. Also, continue multivitamin. May add ARB such as losartan if needed for hypertension control.. The patient is planned for discharge home. Stable from renal perspective. All questions were answered. Eric Temple MD
--- NOTE | 2017-05-27 10:09 | PN ---
NEPHROLOGY FOLLOWUP DATE: CHIEF COMPLAINT: Back pain. HISTORY OF PRESENT ILLNESS AND REVIEW OF SYSTEMS: The patient denies any new complaints. No chest pain, palpitations, shortness of breath, cough, phlegm, fever, or chills. PHYSICAL EXAMINATION: GENERAL: The patient was seen during dialysis. VITAL SIGNS: He was afebrile, pulse 72, and blood pressure 126/63. LUNGS: Bilateral vesicular sounds clear, bilateral air entry. Normal symmetrical. CARDIOVASCULAR: S1 and S2 normal. No murmur could be appreciated. No rub or gallop. ABDOMEN: Soft and nontender. No organomegaly could be appreciated. EXTREMITIES: Bilateral BKA. PSYCHIATRIC: The patient is pleasant and cooperative. Judgement is appropriate. Affect is normal. Insight is present as well. The patient has an access of the Perma-Cath. LABORATORY DATA: Workup shows white blood cell count is 8.7, hemoglobin is 8, and platelet count is 311. Sodium is 141, potassium is 4, creatinine is 4.5, and glucose is 155. CURRENT MEDICATIONS: Reviewed. ASSESSMENT: 1. Community-acquired pneumonia. 2. End-stage renal disease, on hemodialysis via Perma-Cath. 3. History of diabetic chronic kidney disease and hypertensive chronic kidney disease. 4. Anemia. 5. Hypophosphatemia secondary to hyperparathyroidism. RECOMMENDATIONS: The patient's plan for dialysis today as ordered. Increase Epogen dose because of his anemia. Continue anti-hypertensive regimen. May add ARB if needed. If blood pressure stays high, he is already on vitamin D supplementation. Continue antibiotic as per primary team. less than 10. He is on multivitamin daily. When the patient plan for discharge, stable from renal perspective. All questions were answered. Thank you. Please call me if there are any questions. Eric Temple MD
--- NOTE | 2017-06-12 00:59 | DS ---
HISTORY AND HOSPITAL COURSE: The patient came in to the emergency room on 05/17/2017 with chest pain and pressure in his chest and he has shortness of breath and has been coughing. The patient has a history of COPD, has coronary artery disease, has diabetes and he has bilateral amputation. His lab at the time of admission showed severe anemia. His medications were Tylenol, digoxin and morphine. His EKG; no new changes. He was seen Dr. Galindo, for dialysis because he has end-stage renal failure. He was also seen by cardiology, Dr. Michaels, for the chest pain. He has hemoglobin of 7.6, hematocrit of 23.3, BUN of 24 and creatinine of 4.5. His blood sugar was 155. He was taking Coreg, Imdur, Ranexa and Norvasc. He was on his medication. He was seen also by Dr. Joseph for depression. He was followed up by . He has some calf tenderness. His hemoglobin and hematocrit are 8.5 and 27.2. He was discharged on all his medications on to continue as an outpatient and to come to follow up in my office and to continue his dialysis. He has less ejection fraction seen on his echo, it was 40%. His medication was also continue to be Coreg and he has oxygen at home and nebulizers and he will continue all his other medications. FINAL DIAGNOSES: Acute anemia, hypertension, coronary artery disease, status post coronary artery bypass graft, bilateral amputation, diabetes mellitus, end-stage renal failure and congestive heart failure. He is status post paroxysmal atrial fibrillation and he was thought to be having thrombus in the heart which was gone. He is also to continue on the Imdur and Ranexa twice a day 500 and Norvasc 5 and watch for his hyperkalemia. Sybil Li MD
== END 2017-05-25 20:41 | disposition home or self-care (01) | DRG 574 ==
LOC: C.ER 14:34 → C.9E 17:11 → C.6T 21:02
PROVIDERS: ADMIT Internal Medicine; ATTEND Internal Medicine
PROC: 5A1D60Z (ICD-10-PCS; 2017-05-18)
PROC: 02HV33Z Insertion of Infusion Device into Superior Vena Cava, Percutaneous Approach (ICD-10-PCS; principal; 2017-05-20)
DX: D64.9 Anemia, unspecified (principal); I50.32 Chronic diastolic (congestive) heart failure; I13.2 Hypertensive heart and chronic kidney disease with heart failure and with stage 5 chronic kidney disease, or end stage renal disease; I27.2 Other secondary pulmonary hypertension; N18.6 End stage renal disease; N25.81 Secondary hyperparathyroidism of renal origin; I48.92 Unspecified atrial flutter; F33.9 Major depressive disorder, recurrent, unspecified; E87.5 Hyperkalemia; I48.2 Chronic atrial fibrillation; I25.10 Atherosclerotic heart disease of native coronary artery without angina pectoris; I25.2 Old myocardial infarction; Z79.4 Long term (current) use of insulin; H54.8 Legal blindness, as defined in USA; G89.29 Other chronic pain; Z89.511 Acquired absence of right leg below knee; Z89.512 Acquired absence of left leg below knee; Z91.11 Patient's noncompliance with dietary regimen; Z95.1 Presence of aortocoronary bypass graft; Z99.2 Dependence on renal dialysis; Z87.01 Personal history of pneumonia (recurrent)

== ENCOUNTER 2017-06-01 17:55 | Inpatient (IN) | payer OTHER ==
[2017-06-01 17:55] VITALS: PULSE 66; BMI 33.3
--- NOTE | 2017-06-01 18:25 | C.PDOC ---
History Of Present Illness <Darion Waddell - Last Filed: 06/01/17 18:26> <Gurjit Rose - Last Filed: 06/01/17 20:14> 36M c/o coughing up blood today after his dialysis. he was admitted recently for pneumonia and says he has been coughing since but developed fever yesterday at home 102. today at dialysis he coughed up blood- he is blind and couldn't see how much but was told it was "a lot." reports some mild chest pain today, no sob. (Darion Waddell) Past Medical History - Medical History PMH: Alzheimer's Disease, Anemia, Anxiety, Arthritis, Asthma, Atrial Fibrillation, Bronchitis, CAD, Cardia Arrhythmia, CHF, COPD, CVA, Depression, Diabetes, Deep Vein Thrombosis, Gastritis, Gastrointestinal Ulcer, Gall Bladder Disease, HTN, Hypercholesterolemia, Hypothyroidism, Pneumonia, End Stage Renal Disease, Chronic Kidney Disease, Seizures Denies: Hyperthyroidism, Sexually Transmitted Disease Surgical History: CABG (12/2009), Cholecystectomy (2011), Coronary Stent Family History: States: Other Other Family History: nc - Social History Hx Tobacco Use: No Hx Alcohol Use: No Hx Substance Use: No - Immunization History Hx Tetanus Toxoid Vaccination: Yes Hx Influenza Vaccination: No Hx Pneumococcal Vaccination: Yes <Darion Waddell P - Last Filed: 06/01/17 18:26> Vital Signs: Last Vital Signs Temp 99.0 F 06/01/17 18:05 Pulse 110 H 06/01/17 18:05 Resp BP 173/89 H 06/01/17 18:05 Pulse Ox 95 06/01/17 18:28 - [facility] Procedures ABDOMINAL WALL SINOGRAM (12/31/13) C.A.T. SCAN OF ABDOMEN (10/31/13) CENTRAL VENOUS CATHETER PLACEMENT WITH GUIDANCE (02/10/15) DILATE R ANT TIB ART W DRUG-ELUT INTRALUM, PERC (08/12/15) DILATION OF LEFT FEMORAL ARTERY, PERCUTANEOUS APPROACH (07/04/16) DILATION OF RIGHT FEMORAL ARTERY, PERCUTANEOUS APPROACH (08/12/15) DILATION OF RIGHT POPLITEAL ARTERY, PERCUTANEOUS APPROACH (08/12/15) DX ULTRASOUND-HEART (01/05/13) ENTERAL INFUSION OF CONCENTRATED NUT. SUBSTANCES (10/27/13) EXCIS DEBRIDE OF WOUND, INFECT, OR BURN (08/03/14) EXCISION OF STOMACH, ENDO, DIAGN (03/03/17) EXTIRPATION OF MATTER FROM L FEM ART, PERC APPROACH (07/04/16) EXTIRPATION OF MATTER FROM R FEM ART, PERC APPROACH (08/12/15) EXTIRPATION OF MATTER FROM R POPL ART, PERC APPROACH (08/12/15) FLUOROSCOPY OF L LOW EXTREM ART USING L OSM CONTRAST (08/12/15) FLUOROSCOPY OF R LOW EXTREM ART USING L OSM CONTRAST (08/12/15) FREE SKIN GRAFT NEC (08/03/14) HEAD SOFT TISS X-RAY NEC (04/15/13) HEMODIALYSIS (04/28/15) INCIS W REM OF FORIEGN BODY OR DEV FROM SKIN & SUBCUT TISSUE (08/08/13) INSERTION OF INFUSION DEV INTO R SUBCLAV VEIN, PERC APPROACH (01/19/16) INSERTION OF INFUSION DEV INTO SUP VENA CAVA, PERC APPROACH (05/17/17) INSPECTION OF UPPER INTESTINAL TRACT, ENDO (03/03/17) INTRODUCE OF OTH THROMBOLYTIC INTO PERIPH ART, PERC APPROACH (08/12/15) LAPAROSCOPIC CHOLECYSTECTOMY (09/21/13) LOC EXC LES METATAR/TAR (06/01/14) PACKED CELL TRANSFUSION (06/01/14) PERCUTAN LIVER ASPIRAT (12/31/13) PERFORMANCE OF URINARY FILTRATION, MULTIPLE (05/17/17) PERFORMANCE OF URINARY FILTRATION, SINGLE (12/18/16) SKIN & SUBQ INCISION NEC (10/24/14) TETANUS TOXOID ADMINIST (06/13/14) TRANSFUSE NONAUT RED BLOOD CELLS IN PERIPH VEIN, PERC (04/09/17) ULTRASONOGRAPHY OF RIGHT AND LEFT HEART (04/09/17) ULTRASONOGRAPHY OF SUPERIOR VENA CAVA, GUIDANCE (02/20/17) VENOUS CATHETERIZATION FOR RENAL DIALYSIS (08/08/13) VENOUS CATHETERIZATION NEC (04/30/13) Review Of Systems Except As Marked, All Systems Reviewed And Found Negative. Constitutional: Positive for: Fever, Chills, Weakness, Malaise Cardiovascular: Positive for: Chest Pain Respiratory: Positive for: Cough, Hemoptysis. Negative for: Shortness of Breath Gastrointestinal: Negative for: Nausea, Vomiting, Abdominal Pain Neurological: Negative for: Weakness, Numbness, Altered Mental Status <RadmarielyeNitinDarion P - Last Filed: 06/01/17 18:26> Physical Exam - Physical Exam Appears: Chronically Ill Skin: Warm, Dry Head: Atraumatic Nose: No Epistaxis Oral Mucosa: Moist Tongue: No Swelling Lips: No Swelling Throat: Other (no blood noted) Neck: Supple Cardiovascular: Rhythm Regular Respiratory: No Decreased Breath Sounds, No Accessory Muscle Use, No Rales, No Rhonchi, No Stridor, No Wheezing Gastrointestinal/Abdominal: Soft, No Tenderness Neurological/Psych: Oriented x3, Other (no focal deficits) <Darion Waddell P - Last Filed: 06/01/17 18:26> ED Course And Treatment O2 Sat by Pulse Oximetry: 95 <Darion Waddell - Last Filed: 06/01/17 18:26> - Laboratory Results Result Diagrams: 06/01/17 19:10 06/01/17 19:08 <Gurjit Rose - Last Filed: 06/01/17 20:14> Medical Decision Making <NadiraDarion P - Last Filed: 06/01/17 18:26> <Gurjit Rose - Last Filed: 06/01/17 20:14> Medical Decision Making: pt endorsed to [facility] labs cxr. cxr shows rll pneumonia. ekg nsr [address] t wave changes, no interval change. trop neg. dr liao covering dr quintanilla accepts. (Gurjit Rose) Disposition <Yoko Waddellnikki Peraza - Last Filed: 06/01/17 18:26> - Disposition Disposition Time: 20:11 <Gurjit Rose - Last Filed: 06/01/17 20:14> - Disposition Disposition: HOSPITALIZED Condition: FAIR - Clinical Impression Clinical Impression: Pneumonia Decision To Admit <Darion Waddell Karmen - Last Filed: 06/01/17 18:26> - Pt Status Changed To: Hospital Disposition Of: Inpatient - Admit Certification Admit to Inpatient:: After my assessment, the patient will require hospitalization for at least two midnights. This is because of the severity of symptoms shown, intensity of services needed, and/or the medical risk in this patient being treated as an outpatient. - InPatient: Physician Admission Certification: I certify that this patient requires 2 or more midnights of care for the following reason:: pt with pna - . Bed Request Type: Telemetry Admitting Physician: Kimberly Liao <Gurjit Rose - Last Filed: 06/01/17 20:14> - . Patient Diagnosis: Pneumonia
[2017-06-01 19:05] LABS: VENOUS BLOOD GAS BASE EXCESS 8.8 mmol/L (0.0-2.0); VENOUS BLOOD GAS PCO2 41 mmHg (40-60); VENOUS BLOOD PH 7.51 (7.32-7.43)
[2017-06-01 19:15] LABS: BASO # 0.1 K/uL (0.0-0.2); BASO % 0.5 % (0.0-2.0); EOS # 0.7 K/uL (0.0-0.7); EOS % 3.7 % (0.0-4.0); HEMATOCRIT 29.7 % (35.0-51.0); LYMPH # 0.8 K/uL (1.0-4.3); LYMPH % 4.5 % (20.0-40.0); MEAN CELL VOLUME 88.5 fL (80.0-94.0); MEAN CORPUSCULAR HEMOGLOBIN 28.9 pg (27.0-31.0); MEAN CORPUSCULAR HGB CONC 32.6 g/dL (33.0-37.0); MEAN PLATELET VOLUME 8.6 fL (7.2-11.7); MONO # 0.7 K/uL (0.0-0.8); MONO % 3.8 % (0.0-10.0); RED CELL DISTRIBUTION WIDTH 17.5 % (11.5-14.5); WHITE BLOOD COUNT 18.2 K/uL (4.8-10.8)
[2017-06-01] MEDS ORDERED: Piperacillin/Tazobact 3.375 GM in Sodium Chloride 100 ML IVPB STA (19:18)
[2017-06-01 19:25] LABS: CHLORIDE 93 mmol/L (98-107)
[2017-06-01 19:26] LABS: SODIUM 139 mmol/L (132-148)
[2017-06-01 19:28] LABS: ALKALINE PHOSPHATASE 125 U/L (38-126); ALT/SGPT 7 U/L (21-72); AST/SGOT 48 U/L (17-59); BILIRUBIN,TOTAL 0.7 mg/dL (0.2-1.3); BLOOD UREA NITROGEN 7 mg/dL (9-20); CARBON DIOXIDE 27 mmol/L (22-30); GFR AFRICAN-AMERICAN > 60
[2017-06-01 19:28] LABS: PLATELET COUNT 196 K/uL (130-400)
[2017-06-01 19:29] LABS: CALCIUM 9.1 mg/dl (8.6-10.4); GLUCOSE,RANDOM 105 mg/dL (75-110)
[2017-06-01] MEDS ORDERED: Piperacillin/Tazobact 3.375 gm 100 ML IVPB ONE (19:47)
[2017-06-01] MEDS ORDERED: Vancomycin 1 GM 1 GM/250 ML BAG IVPB ONE (19:47)
[2017-06-01 20:02] LABS: EOSINOPHIL 5 % (0-4); NEUTROPHIL 89 % (50-75); TOTAL CELLS COUNTED 100
[2017-06-01 20:03] LABS: LARGE PLATELETS PRESENT
[2017-06-01] MEDS ORDERED: WATER IVPB SCH (20:30)
[2017-06-01] MEDS ORDERED: DEXTROSE 5% IVPB SCH (20:30)
[2017-06-01] MEDS ORDERED: CEFEPIME IVPB SCH (20:30)
[2017-06-01] MEDS ORDERED: Ergocalciferol 50,000 Intl Units Cap PO SCH (20:45)
[2017-06-01] MEDS: (Novolin R) Insulin Human Regular 100 units/ml vial SC SCH (22:39)
[2017-06-01] MEDS: Valproic Acid 250 mg/5 ml UD Cup PO SCH (22:50)
[2017-06-01] MEDS: Insulin Detemir 100 units/ml Vial (Levemir) SC SCH (22:56)
[2017-06-02] MEDS: Albuterol-Ipratrop 3 mg / 0.5 (3 ml) UD INH SCH ×7 (00:41→20:21)
[2017-06-02] MEDS: Cefepime IV 1 gm in Dextrose 1 GM/50 ML BAG IVPB SCH (06:37)
[2017-06-02] MEDS: (Novolin R) Insulin Human Regular 100 units/ml vial SC SCH ×4 (07:34→22:19)
[2017-06-02] MEDS: Multivitamin Vitamin B Complex (Nephro-Vite) Tab PO SCH (08:37)
[2017-06-02] MEDS ORDERED: LEVETIRACETAM 750 MG PO SCH (10:00)
[2017-06-02] MEDS: HYDROmorphone 0.5 mg/0.5 ml ISec IVP PRN ×2 (11:04→17:11)
[2017-06-02] MEDS: Pantoprazole 40 mg EC Tab PO SCH (11:05)
--- NOTE | 2017-06-02 11:09 | RAD ---
PROCEDURE: CHEST RADIOGRAPH, 1 VIEW HISTORY: cough COMPARISON: 05/17/2017. FINDINGS: No change right IJ dialysis catheter with tips in the region of the RA LUNGS: Diffuse bilateral infiltrates likely represent pulmonary edema; rule out fluid overload or CHF. Somewhat more confluent opacity right lower lobe may represent alveolar-type infiltrate. Suspect small bilateral effusions. Note the left lung apex is partially obscured by overlying facial soft tissue and mandible artifact PLEURA: As above. No apparent pneumothorax CARDIOVASCULAR: Wires and CABG clips again noted. Heart appears mildly enlarged OSSEOUS STRUCTURES: No significant abnormalities. VISUALIZED UPPER ABDOMEN: Normal. OTHER FINDINGS: None. IMPRESSION: Diffuse bilateral infiltrates likely represent pulmonary edema; rule out fluid overload or CHF. Somewhat more confluent opacity right lower lobe may represent alveolar-type infiltrate. Suspect small bilateral effusions.
[2017-06-02] MEDS: Valproic Acid 250 mg/5 ml UD Cup PO SCH ×4 (11:10→22:18)
[2017-06-02] MEDS: guaiFENesin 600 mg ER Tab PO SCH ×2 (11:13→17:10)
[2017-06-02] MEDS: guaiFENesin DM 100 mg-10 mg/5 ml UD PO PRN (11:14)
[2017-06-02] MEDS: Insulin Detemir 100 units/ml Vial (Levemir) SC SCH (22:19)
[2017-06-03] MEDS: Albuterol-Ipratrop 3 mg / 0.5 (3 ml) UD INH SCH ×7 (00:50→23:26)
[2017-06-03] MEDS: HYDROmorphone 0.5 mg/0.5 ml ISec IVP PRN ×4 (00:58→21:34)
[2017-06-03] MEDS: Cefepime IV 1 gm in Dextrose 1 GM/50 ML BAG IVPB SCH (06:16)
[2017-06-03 07:22] LABS: CALCIUM 8.4 mg/dl (8.6-10.4); POTASSIUM 4.1 mmol/L (3.6-5.2)
[2017-06-03] MEDS: (Novolin R) Insulin Human Regular 100 units/ml vial SC SCH ×4 (07:30→21:28)
[2017-06-03 07:31] LABS: BASO # 0.1 K/uL (0.0-0.2); BASO % 0.8 % (0.0-2.0); EOS # 0.8 K/uL (0.0-0.7); EOS % 9.1 % (0.0-4.0); HEMATOCRIT 27.8 % (35.0-51.0); LYMPH # 1.2 K/uL (1.0-4.3); LYMPH % 14.4 % (20.0-40.0); MEAN CELL VOLUME 89.7 fL (80.0-94.0); MEAN CORPUSCULAR HEMOGLOBIN 29.3 pg (27.0-31.0); MEAN CORPUSCULAR HGB CONC 32.6 g/dL (33.0-37.0); MEAN PLATELET VOLUME 9.5 fL (7.2-11.7); MONO # 0.6 K/uL (0.0-0.8); RED CELL DISTRIBUTION WIDTH 17.4 % (11.5-14.5)
[2017-06-03 07:45] LABS: WHITE BLOOD COUNT 8.4 K/uL (4.8-10.8)
--- NOTE | 2017-06-03 09:15 | HP ---
HISTORY OF PRESENT ILLNESS: This is 36-year-old man with history of chronic renal failure, diabetes, coronary artery disease, hypertension, in the hospital showing some progressive weakness. The patient does have pneumonia and was admitted to the hospital. The patient has multiple history of admission to the hospital. History of left ventricular thrombus. PHYSICAL EXAMINATION: GENERAL: The patient is awake, alert, and oriented, and well built. VITAL SIGNS: Temperature 98.0, pulse is 94. HEENT: Within normal limits. NECK: Supple. CHEST: Symmetrical. surgery. HEART: Tachycardic. ABDOMEN: Soft. EXTREMITIES: No edema. IMPRESSION AND PLAN: Pneumonia. The patient to get bedrest, supportive care, antibiotic. Kimberly Liao MD
--- NOTE | 2017-06-03 09:26 | CP.PCM.PN ---
Subjective - Date & Time of Evaluation Date of Evaluation: 06/03/17 Time of Evaluation: 09:25 - Subjective Subjective: PGY-[address] Liao's Service: Pt seen and examined at bedside. 36M c/o coughing up blood today after his dialysis. he was admitted recently for pneumonia and says he has been coughing since but developed fever yesterday at home 102. today at dialysis he coughed up blood- he is blind and couldn't see how much but was told it was "a lot." reports some mild chest pain today, no sob. Objective - Vital Signs/Intake and Output Vital Signs (last 24 hours): Temp Pulse Resp BP Pulse Ox 98.1 F 70 18 150/64 100 06/03/17 07:30 06/03/17 07:30 06/03/17 07:30 06/03/17 07:30 06/03/17 07:30 - Medications Medications: Current Medications Acetaminophen (Tylenol 325mg Tab) 650 mg PO Q4 [facility] Last Admin: 06/02/17 22:19 Dose: Not Given Albuterol/Ipratropium (Duoneb 3 Mg/0.5 Mg (3 Ml) Ud) 3 ml INH RQ4 [facility] Last Admin: 06/03/17 07:21 Dose: Not Given Amlodipine Besylate (Norvasc) 10 mg PO DAILY [facility] Last Admin: 06/02/17 11:05 Dose: 10 mg Aspirin (Aspirin Chewable) 81 mg PO DAILY [facility] Last Admin: 06/02/17 11:05 Dose: 81 mg Calcitriol (Rocaltrol) 0.25 mcg PO TTS [facility] Calcium Carbonate (Oscal) 500 mg PO BID [facility] Last Admin: 06/02/17 17:10 Dose: 500 mg Carvedilol (Coreg) 6.25 mg PO Q12 [facility] Last Admin: 06/02/17 22:18 Dose: 6.25 mg Epoetin Tom (Procrit) 4,000 unit SC TTS [facility] Ergocalciferol (Drisdol 50,000 Intl Units Cap) 1 cap PO Q7D [facility] Last Admin: 06/01/17 21:10 Dose: Not Given Fentanyl (Duragesic) 1 patch TD Q72H [facility] Last Admin: 06/01/17 21:10 Dose: Not Given Guaifenesin (Mucinex La) 600 mg PO BID [facility] Last Admin: 06/02/17 17:10 Dose: 600 mg Guaifenesin/Dextromethorphan (Robitussin Dm) 5 ml PO Q4 PRN PRN Reason: Cough Last Admin: 06/02/17 11:14 Dose: 5 ml Heparin Sodium (Porcine) (Heparin) 5,000 units SC Q12 [facility] Last Admin: 06/02/17 22:18 Dose: 5,000 units Hydromorphone HCl (Dilaudid) 0.5 mg IVP Q6H PRN PRN Reason: Pain, severe (8-10) Last Admin: 06/03/17 07:13 Dose: 0.5 mg Vancomycin HCl 500 mg/ Sodium (Chloride) 100 mls @ 100 mls/hr IVPB [facility] Cefepime HCl (Maxipime Iv 1 Gm Premix) 1 gm in 50 mls @ 100 mls/hr IVPB Q24H [facility] Last Admin: 06/03/17 06:16 Dose: 100 mls/hr Insulin Detemir (Levemir) 8 unit SC [facility] Last Admin: 06/02/17 22:19 Dose: Not Given Insulin Human Regular (Novolin R) 0 unit SC ACHS [facility] PRN Reason: Protocol Last Admin: 06/02/17 22:19 Dose: Not Given Isosorbide Mononitrate (Imdur) 60 mg PO DAILY [facility] Last Admin: 06/02/17 11:05 Dose: 60 mg Levetiracetam (Keppra) 750 mg PO BID [facility] Last Admin: 06/02/17 17:11 Dose: 750 mg Pantoprazole Sodium (Protonix Ec Tab) 40 mg PO DAILY [facility] Last Admin: 06/02/17 11:05 Dose: 40 mg Rosuvastatin Calcium (Crestor) 10 mg PO HS [facility] Last Admin: 06/02/17 23:09 Dose: 10 mg Sertraline HCl (Zoloft) 50 mg PO DAILY [facility] Last Admin: 06/02/17 11:13 Dose: 50 mg Valproate Sodium (Depakene Oral Soln) 250 mg PO QID [facility] Last Admin: 06/02/17 22:18 Dose: 250 mg Vitamin B Complex/Vit C/Folic Acid (Nephro-Courtney) 1 tab PO 0800 [facility] Last Admin: 06/02/17 08:37 Dose: 1 tab - Labs Labs: 06/03/17 06:53 06/03/17 06:53 - Additional Findings Additional findings: - Constitutional Appears: Non-toxic, No Acute Distress, Chronically Ill - Head Exam Head Exam: ATRAUMATIC, NORMAL INSPECTION - Eye Exam Eye Exam: EOMI Pupil Exam: NORMAL ACCOMODATION - ENT Exam ENT Exam: Mucous Membranes Moist Additional comments: pt is blind - Respiratory Exam Respiratory Exam: Clear to Ausculation Bilateral, NORMAL BREATHING PATTERN - Cardiovascular Exam Cardiovascular Exam: REGULAR RHYTHM, +S1, +S2 - GI/Abdominal Exam GI & Abdominal Exam: Soft, Normal Bowel Sounds. absent: Distended, Firm, Guarding, Tenderness - Extremities Exam Additional comments: b/l leg amputation - Back Exam Back Exam: NORMAL INSPECTION - Neurological Exam Neurological Exam: Alert, Awake - Psychiatric Exam Psychiatric exam: Normal Affect, Normal Mood Assessment and Plan - Assessment and Plan (Free Text) Plan: Pneumonia Admit to tele Afebrile through course CXR (06/01/17): Diffuse bilateral infiltrates likely representing pulm edema; r/ o fluid overload vs CHF. Confluent right opacity RLL may be alveolar infiltrate. Suspect small B/l effusions (see full report) - f/u repeat CXR Cefepime 1 gm Daily Tylenol 650mg Q4H for fever Duoneb Q4H [facility] Mucinex 600mg PO BID Robitussin 5ml PO Q4H prn Blood culture (06/01/17): negative x 24 hours x 2 ESRD on HD schedule Nephrology consult, Dr. Temple, help appreciated - isolated UF today, dialysis tomorrow - recommend hem/onc consult for HIIT - recommend permacath replacement, consult gen/surg Monitor electrolytes Nephrovite 1 tab daily Calcitriol 0.25mcg PO TTS Oscal 500mg PO BID [facility] 20658r [facility]TS Ergocalciferol 50,000units 1 cap Q7D Vancomycin 500mg IV TThSat with dialysis Permacath Replacement Erosion through skin Surgical consult, Dr. Mckinnon, help appreciated - NPO tomorrow AM - f/u PT/INR History of HIIT HOLD heparin Hem/Onc: Dr. Ku, help appreciated - f/u reccs T2DM Well-controlled today Levemir 8 units HS RISS f/u A1C, Lipid panel CAD s/p CABG SA 81mg PO Daily Crestor 10mg PO HS Hypertension Well-controlled Norvasc 10mg PO Daily Coreg 6.215mg PO Q12H Imdur 60mg PO Daily Anemia -believe of chronic disease Hgb: 9.1 on AM labs (around baseline according to EMR) Monitor Chronic Pain Fentanyl Q72H Dilaudid 0.5mg IV Q6H Seizure D/O keppra 750mg PO BID Valporic Acid 250 mg PO QID Depression Zoloft 50mg P O Daily Prophylaxis Heparin 5000units Q12H HOLD Protonix 40mg PO Daily NO SCDs due to b/l amputation
[2017-06-03] MEDS: Pantoprazole 40 mg EC Tab PO SCH (10:40)
[2017-06-03] MEDS: guaiFENesin 600 mg ER Tab PO SCH ×2 (10:41→18:54)
[2017-06-03] MEDS: Multivitamin Vitamin B Complex (Nephro-Vite) Tab PO SCH (10:41)
[2017-06-03] MEDS: Valproic Acid 250 mg/5 ml UD Cup PO SCH ×4 (10:42→21:47)
--- NOTE | 2017-06-03 15:28 | CP.PCM.CON ---
History of Present Illness - History of Present Illness History of Present Illness: Initial Nephrology Consultation: Assessment: critical Pulmonay edema Diabetic chronic Kidney Disease (E11.22) Hypertensive Chronic Kidney Disease (I12.0) End stage renal disease (N18.6) dependence on hemodialysis (Z99.2) (TTS) via AVF Anemia (D64.9), Hyperphosphatemia (E83.39), Secondary Hyperparathyroidism (E21.1 ), HTN (I12.0) CAD s/p CABG, diastolic CHF, pA flutter/fib, intra-cardiac thrombus, Heparin induced thrombocytopenia, hx of seizure, blindness Plan: Will plan for isolated UF today Will plan for routine dialysis tomorrow. Continue with Nephrovite 1 tab/day. PRBC as needed for anemia. On HANNAH as epogen Continue with phos binders home dose Continue with calcitriol with dialysis. Last PTH level 286. BP control with meds as ordered. Patient on RAAS skyler Glycemic control, Dialysis consistent diet Further work up/management as per primary team Dose meds/antibiotics (if needed) for ESRD status. Avoid fleets enema/magnesium based laxatives. avoid heparin. Thanks for allowing me to participate in care of your patient. Will follow patient with you. Please call if any Qs Dr Eric Temple Office: [phone] Chief Complaint; blood in cough HPI: Pt is a 36 y/o M with hx of ESRD on hemodialysis (TTS) via permacath, last dialysis sat, chronic anemia, hyperphosphatemia, secondary hyperparathyroidism, Diabetes Mellitus, hypertension, CAD s/p CABG, diastilic CHF, pA flutter/fib, intra-cardiac thrombus, Heparin indueced thrombocytopenia presented with complaints of cough with blood in phlegm. Denies chest pain, palpitation, has mild shortness of breath ROS: Constitutional Symptoms: Denies fever. No chills. No Recent Weight Changes Eyes: denies change in vision, denies watery eyes, denies double vision Ears/Nose/Mouth/Throat: Denies Abnormal Taste. No Bad breath or Bad Taste. Cardiovascular: No chest pain. There is c/o shortness of breath. No palpitations. Pulmonary: c/o shortness of breath or cough. Gastrointestinal: denies abdominal pain No nausea. No vomiting. Denies change in bowel habits. Denies Bleeding Genitourinary: makes small urine. No associated pain or blood. Neurological: Denies headaches. No dizziness. Denies loss of balance. Denies weakness, denies tingling/numbness Dermatological: No Rash or Bruising or ulcers. Psychiatric: Denies Anxiety. No depression. Denies hallucinations. Rheumatological: No joint pain. Denies Joint swelling. has b/l AKA Endocrine: Denies over tiredness. Denies Fatigue and denies Heat/Cold Intolerance. All other negative. Physical Examination: General Appearance: Comfortable, in no acute respiratory distress, co-operative . Vitals reviewed and noted as below Head; Atraumatic, normocephalic ENT: no ulcers no thrush. Tongue is midline. Oropharynx: no rash or ulcers. EYES: Pt is blind both eyes Neck; supple no lymphadenopathy, no thyromegaly or bruit Lungs: Normal respiratory rate/effort. Breath sounds bilateral equal but decreased at bases with crackles Heart: Normal rate. s1s2 normal. No rub or gallop. Extremities: no edema. No varicose veins. has b/l AKA Neurological: Patient is alert, awake and oriented to person, place and time. No focal deficit. Strength bilateral appropriate and equal Skin: Warm and dry. Normal turgor. No rash. Palpitation: Normal elasticity for age Abdomen: Abdomen is soft. Bowel sounds +. There is no abdominal tenderness, no guarding/rigidity or organomegaly Psych: normal insight and normal affect/mood MSK: no joint tenderness or swelling. Digits and nails normal, no deformity : kidney or bladder not palpable Access: permacath Labs/imaging reviewed. Past medical history, past surgical history, family history, social history, allergy reviewed and noted as below Family Hx: no hx of CKD. Non contributory Past Patient History - Infectious Disease Hx of Infectious Diseases: None - Tetanus Immunizations Tetanus Immunization: >10 years Ago - Past Medical History & Family History Past Medical History?: Yes - Past Social History Smoking Status: Never Smoked - CARDIAC Hx Cardiac Disorders: Yes Hx Atrial Fibrillation: Yes Hx Cardia Arrhythmia: Yes Hx Congestive Heart Failure: Yes Hx Hypercholesterolemia: Yes Hx Hypertension: Yes - PULMONARY Hx Respiratory Disorders: Yes Hx Asthma: Yes Hx Bronchitis: Yes Hx Chronic Obstructive Pulmonary Disease (COPD): Yes Hx Pneumonia: Yes - NEUROLOGICAL Hx Neurological Disorder: Yes Hx Seizures: Yes - HEENT Hx HEENT Problems: Yes Hx Blind: Yes (legally blind) Hx Cataracts: Yes - RENAL Hx Chronic Kidney Disease: Yes Type of Dialysis Access: R Jugular Perma Cath Date of Last Dialysis Treatment: 06/01/17 Hx Renal Failure: Yes - ENDOCRINE/METABOLIC Hx Endocrine Disorders: Yes Hx Diabetes Mellitus Type 1: Yes Hx Hyperthyroidism: No Hx Hypothyroidism: Yes - HEMATOLOGICAL/ONCOLOGICAL Hx Blood Disorders: Yes Hx Anemia: Yes Hx Blood Transfusions: Yes Hx Blood Transfusion Reaction: No - INTEGUMENTARY Hx Dermatological Problems: No - MUSCULOSKELETAL/RHEUMATOLOGICAL Hx Musculoskeletal Disorders: Yes Hx Arthritis: Yes Hx Falls: No - GASTROINTESTINAL Hx Gastrointestinal Disorders: Yes Hx Gall Bladder Disease: Yes Hx Gastritis: Yes - GENITOURINARY/GYNECOLOGICAL Hx Genitourinary Disorders: Yes Hx Incontinence: Yes Hx Sexually Transmitted Disorders: No - PSYCHIATRIC Hx Psychophysiologic Disorder: Yes Hx Anxiety: Yes Hx Depression: Yes Hx Substance Use: No - SURGICAL HISTORY Hx Surgeries: Yes Hx Cholecystectomy: Yes (2011) 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/2009) Hx Coronary Stent: Yes - ANESTHESIA Hx Anesthesia: Yes Hx Anesthesia Reactions: No Hx Malignant Hyperthermia: No Has any member of the family had a problem w/ anesthesia?: No Meds Allergies/Adverse Reactions: Allergies Allergy/AdvReac Type Severity Reaction Status Date / Time acetaminophen [From Percocet] Allergy RASH Verified 04/09/17 10:25 atenolol Allergy RASH Verified 04/09/17 10:25 digoxin Allergy RASH Verified 04/09/17 10:25 milk Allergy ITCHING Verified 04/09/17 10:25 morphine Allergy RASH Verified 04/09/17 10:28 oxycodone HCl [From Percocet] Allergy RASH Verified 04/09/17 10:25 - Medications Medications: Current Medications Acetaminophen (Tylenol 325mg Tab) 650 mg PO Q4 [facility] Last Admin: 06/03/17 12:08 Dose: Not Given Albuterol/Ipratropium (Duoneb 3 Mg/0.5 Mg (3 Ml) Ud) 3 ml INH RQ4 [facility] Last Admin: 06/03/17 11:29 Dose: Not Given Amlodipine Besylate (Norvasc) 10 mg PO DAILY [facility] Last Admin: 06/03/17 10:40 Dose: 10 mg Aspirin (Aspirin Chewable) 81 mg PO DAILY [facility] Last Admin: 06/03/17 10:40 Dose: 81 mg Calcitriol (Rocaltrol) 0.25 mcg PO TTS [facility] Calcium Carbonate (Oscal) 500 mg PO BID [facility] Last Admin: 06/03/17 10:40 Dose: 500 mg Carvedilol (Coreg) 6.25 mg PO Q12 [facility] Last Admin: 06/03/17 10:42 Dose: 6.25 mg Epoetin Tom (Procrit) 4,000 unit SC TTS [facility] Ergocalciferol (Drisdol 50,000 Intl Units Cap) 1 cap PO Q7D [facility] Last Admin: 06/01/17 21:10 Dose: Not Given Fentanyl (Duragesic) 1 patch TD Q72H [facility] Last Admin: 06/01/17 21:10 Dose: Not Given Guaifenesin (Mucinex La) 600 mg PO BID [facility] Last Admin: 06/03/17 10:41 Dose: 600 mg Guaifenesin/Dextromethorphan (Robitussin Dm) 5 ml PO Q4 PRN PRN Reason: Cough Last Admin: 06/02/17 11:14 Dose: 5 ml Heparin Sodium (Porcine) (Heparin) 5,000 units SC Q12 [facility] Last Admin: 06/03/17 12:30 Dose: Not Given Hydromorphone HCl (Dilaudid) 0.5 mg IVP Q6H PRN PRN Reason: Pain, severe (8-10) Last Admin: 06/03/17 13:30 Dose: 0.5 mg Vancomycin HCl 500 mg/ Sodium (Chloride) 100 mls @ 100 mls/hr IVPB [facility] Cefepime HCl (Maxipime Iv 1 Gm Premix) 1 gm in 50 mls @ 100 mls/hr IVPB Q24H [facility] Last Admin: 06/03/17 06:16 Dose: 100 mls/hr Insulin Detemir (Levemir) 8 unit SC HS [facility] Last Admin: 06/02/17 22:19 Dose: Not Given Insulin Human Regular (Novolin R) 0 unit SC ACHS [facility] PRN Reason: Protocol Last Admin: 06/03/17 12:00 Dose: Not Given Isosorbide Mononitrate (Imdur) 60 mg PO DAILY [facility] Last Admin: 06/03/17 10:40 Dose: 60 mg Levetiracetam (Keppra) 750 mg PO BID [facility] Last Admin: 06/03/17 10:50 Dose: 750 mg Pantoprazole Sodium (Protonix Ec Tab) 40 mg PO DAILY [facility] Last Admin: 06/03/17 10:40 Dose: 40 mg Rosuvastatin Calcium (Crestor) 10 mg PO HS [facility] Last Admin: 06/02/17 23:09 Dose: 10 mg Sertraline HCl (Zoloft) 50 mg PO DAILY [facility] Last Admin: 06/03/17 10:40 Dose: 50 mg Valproate Sodium (Depakene Oral Soln) 250 mg PO QID [facility] Last Admin: 06/03/17 13:26 Dose: 250 mg Vitamin B Complex/Vit C/Folic Acid (Nephro-Courtney) 1 tab PO 0800 [facility] Last Admin: 06/03/17 10:41 Dose: 1 tab Results - Vital Signs Recent Vital Signs: Last Vital Signs Temp 97.7 F 06/03/17 14:10 Pulse 78 06/03/17 14:10 Resp 16 06/03/17 14:10 BP 141/59 L 06/03/17 15:10 Pulse Ox 100 06/03/17 07:30 - Labs Result Diagrams: 06/03/17 06:53 06/03/17 06:53 Labs: Laboratory Results - last 24 hr 06/02/17 06/02/17 06/03/17 17:03 21:38 06:27 WBC RBC Hgb Hct MCV MCH MCHC RDW Plt Count MPV Neut % (Auto) Lymph % (Auto) Er[place] % (Auto) Eos % (Auto) Baso % (Auto) Neut # Lymph # Erath # Eos # Baso # Sodium Potassium Chloride Carbon Dioxide Anion Gap BUN Creatinine Est GFR ( Amer) Est GFR (Non-Af Amer) POC Glucose (mg/dL) 117 H 174 H 126 H Random Glucose Calcium 06/03/17 06/03/17 06/03/17 06:53 06:53 11:30 WBC 8.4 D RBC 3.10 L Hgb 9.1 L Hct 27.8 L MCV 89.7 MCH 29.3 MCHC 32.6 L RDW 17.4 H Plt Count 171 MPV 9.5 Neut % (Auto) 68.7 Lymph % (Auto) 14.4 L Erath % (Auto) 7.0 Eos % (Auto) 9.1 H Baso % (Auto) 0.8 Neut # 5.8 Lymph # 1.2 Erath # 0.6 Eos # 0.8 H Baso # 0.1 Sodium 137 Potassium 4.1 Chloride 95 L Carbon Dioxide 27 Anion Gap 19 BUN 25 H Creatinine 3.9 H Est GFR ( Amer) 21 Est GFR (Non-Af Amer) 18 POC Glucose (mg/dL) 150 H Random Glucose 112 H Calcium 8.4 L
--- NOTE | 2017-06-03 19:15 | CP.PCM.CON ---
History of Present Illness - History of Present Illness History of Present Illness: Vascular surgery consult note for Dr. Mckinnon consulted for: erosion of permacatheter through skin Patient is a 36M with extensive past medical history including ESRD on HD, DM, and multiple prior vascular access surgeries. Patient is only minimally interactive at time of exam answering questions only intermittantly. Most of the follow information is gleaned from the chart. States he believes he has had the current permacath for 3 years. It has been functioning properly, and not been associated with pain, discharge, or bleeding. It was noted by the primary team that there is an area were the tunneled catheter has eroded through the skin. Patient denies any chest pain, fevers, chills, dyspnea, or any other symptoms PMH: DM, ESRD on HD, HTN, CAD, blind, afib/flutter, HIT, hypothryoidism, seizures PSH: CABG, several vascular access surgeries, cholecystectomy ALL: percocet, atenolol, digoxin, morphine Review of Systems - Review of Systems Systems not reviewed;Unavailable: Altered Mental Status - Constitutional Constitutional: absent: Chills, Fever - Cardiovascular Cardiovascular: absent: Chest Pain, Chest Pain at Rest, Dyspnea - Respiratory Respiratory: absent: Cough, Dyspnea - Gastrointestinal Gastrointestinal: absent: Abdominal Pain, Nausea Past Patient History - Infectious Disease Hx of Infectious Diseases: None - Tetanus Immunizations Tetanus Immunization: >10 years Ago - Past Medical History & Family History Past Medical History?: Yes - Past Social History Smoking Status: Never Smoked - CARDIAC Hx Cardiac Disorders: Yes Hx Atrial Fibrillation: Yes Hx Cardia Arrhythmia: Yes Hx Congestive Heart Failure: Yes Hx Hypercholesterolemia: Yes Hx Hypertension: Yes - PULMONARY Hx Respiratory Disorders: Yes Hx Asthma: Yes Hx Bronchitis: Yes Hx Chronic Obstructive Pulmonary Disease (COPD): Yes Hx Pneumonia: Yes - NEUROLOGICAL Hx Neurological Disorder: Yes Hx Seizures: Yes - HEENT Hx HEENT Problems: Yes Hx Blind: Yes (legally blind) Hx Cataracts: Yes - RENAL Hx Chronic Kidney Disease: Yes Type of Dialysis Access: R Jugular Perma Cath Date of Last Dialysis Treatment: 06/01/17 Hx Renal Failure: Yes - ENDOCRINE/METABOLIC Hx Endocrine Disorders: Yes Hx Diabetes Mellitus Type 1: Yes Hx Hyperthyroidism: No Hx Hypothyroidism: Yes - HEMATOLOGICAL/ONCOLOGICAL Hx Blood Disorders: Yes Hx Anemia: Yes Hx Blood Transfusions: Yes Hx Blood Transfusion Reaction: No - INTEGUMENTARY Hx Dermatological Problems: No - MUSCULOSKELETAL/RHEUMATOLOGICAL Hx Musculoskeletal Disorders: Yes Hx Arthritis: Yes Hx Falls: No - GASTROINTESTINAL Hx Gastrointestinal Disorders: Yes Hx Gall Bladder Disease: Yes Hx Gastritis: Yes - GENITOURINARY/GYNECOLOGICAL Hx Genitourinary Disorders: Yes Hx Incontinence: Yes Hx Sexually Transmitted Disorders: No - PSYCHIATRIC Hx Psychophysiologic Disorder: Yes Hx Anxiety: Yes Hx Depression: Yes Hx Substance Use: No - SURGICAL HISTORY Hx Surgeries: Yes Hx Cholecystectomy: Yes (2011) 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/2009) Hx Coronary Stent: Yes - ANESTHESIA Hx Anesthesia: Yes Hx Anesthesia Reactions: No Hx Malignant Hyperthermia: No Has any member of the family had a problem w/ anesthesia?: No Meds Allergies/Adverse Reactions: Allergies Allergy/AdvReac Type Severity Reaction Status Date / Time acetaminophen [From Percocet] Allergy RASH Verified 04/09/17 10:25 atenolol Allergy RASH Verified 04/09/17 10:25 digoxin Allergy RASH Verified 04/09/17 10:25 milk Allergy ITCHING Verified 04/09/17 10:25 morphine Allergy RASH Verified 04/09/17 10:28 oxycodone HCl [From Percocet] Allergy RASH Verified 04/09/17 10:25 - Medications Medications: Current Medications Acetaminophen (Tylenol 325mg Tab) 650 mg PO Q4 PRN PRN Reason: Temperature Albuterol/Ipratropium (Duoneb 3 Mg/0.5 Mg (3 Ml) Ud) 3 ml INH RQ4 [facility] Last Admin: 06/03/17 11:29 Dose: Not Given Amlodipine Besylate (Norvasc) 10 mg PO DAILY [facility] Last Admin: 06/03/17 10:40 Dose: 10 mg Aspirin (Aspirin Chewable) 81 mg PO DAILY [facility] Last Admin: 06/03/17 10:40 Dose: 81 mg Calcitriol (Rocaltrol) 0.25 mcg PO TTS [facility] Calcium Carbonate (Oscal) 500 mg PO BID [facility] Last Admin: 06/03/17 18:55 Dose: Not Given Carvedilol (Coreg) 6.25 mg PO Q12 [facility] Last Admin: 06/03/17 10:42 Dose: 6.25 mg Epoetin Tom (Procrit) 14,000 unit IV TTS [facility] Ergocalciferol (Drisdol 50,000 Intl Units Cap) 1 cap PO Q7D [facility] Last Admin: 06/01/17 21:10 Dose: Not Given Fentanyl (Duragesic) 1 patch TD Q72H [facility] Last Admin: 06/01/17 21:10 Dose: Not Given Guaifenesin (Mucinex La) 600 mg PO BID [facility] Last Admin: 06/03/17 18:54 Dose: Not Given Guaifenesin/Dextromethorphan (Robitussin Dm) 5 ml PO Q4 PRN PRN Reason: Cough Last Admin: 06/02/17 11:14 Dose: 5 ml Heparin Sodium (Porcine) (Heparin) 5,000 units SC Q12 [facility] Last Admin: 06/03/17 12:30 Dose: Not Given Hydromorphone HCl (Dilaudid) 0.5 mg IVP Q6H PRN PRN Reason: Pain, severe (8-10) Last Admin: 06/03/17 13:30 Dose: 0.5 mg Vancomycin HCl 500 mg/ Sodium (Chloride) 100 mls @ 100 mls/hr IVPB [facility] Cefepime HCl (Maxipime Iv 1 Gm Premix) 1 gm in 50 mls @ 100 mls/hr IVPB Q24H [facility] Last Admin: 06/03/17 06:16 Dose: 100 mls/hr Insulin Detemir (Levemir) 8 unit SC [facility] Last Admin: 06/02/17 22:19 Dose: Not Given Insulin Human Regular (Novolin R) 0 unit SC ACHS [facility] PRN Reason: Protocol Last Admin: 06/03/17 16:30 Dose: Not Given Isosorbide Mononitrate (Imdur) 60 mg PO DAILY [facility] Last Admin: 06/03/17 10:40 Dose: 60 mg Levetiracetam (Keppra) 750 mg PO BID [facility] Last Admin: 06/03/17 18:54 Dose: Not Given Pantoprazole Sodium (Protonix Ec Tab) 40 mg PO DAILY [facility] Last Admin: 06/03/17 10:40 Dose: 40 mg Rosuvastatin Calcium (Crestor) 10 mg PO HS [facility] Last Admin: 06/02/17 23:09 Dose: 10 mg Sertraline HCl (Zoloft) 50 mg PO DAILY [facility] Last Admin: 06/03/17 10:40 Dose: 50 mg Valproate Sodium (Depakene Oral Soln) 250 mg PO QID [facility] Last Admin: 06/03/17 18:53 Dose: Not Given Vitamin B Complex/Vit C/Folic Acid (Nephro-Courtney) 1 tab PO 0800 [facility] Last Admin: 06/03/17 10:41 Dose: 1 tab Physical Exam - Constitutional Appears: Non-toxic, No Acute Distress, Chronically Ill - Head Exam Head Exam: ATRAUMATIC, NORMOCEPHALIC - ENT Exam ENT Exam: Mucous Membranes Moist, Normal Oropharynx - Neck Exam Neck exam: Positive for: Normal Inspection - Respiratory Exam Respiratory Exam: NORMAL BREATHING PATTERN. absent: Chest Wall Tenderness, Respiratory Distress Additional comments: right superior chest with permacath with 5mm area of skin erosion with visible cather underneath, mildly tender to the touch, non-erythematous, no active bleeding or discharge - Cardiovascular Exam Cardiovascular Exam: RRR - GI/Abdominal Exam GI & Abdominal Exam: Soft. absent: Distended, Tenderness - Neurological Exam Neurological exam: Altered - Psychiatric Exam Psychiatric exam: Flat Affect, Normal Mood - Skin Skin Exam: Dry, Normal Color, Warm Results - Vital Signs Recent Vital Signs: Last Vital Signs Temp 97.3 F L 06/03/17 17:40 Pulse 60 06/03/17 17:40 Resp 17 06/03/17 17:40 BP 114/48 L 06/03/17 17:40 Pulse Ox 100 06/03/17 17:40 - Labs Result Diagrams: 06/03/17 06:53 06/03/17 06:53 Labs: Laboratory Results - last 24 hr 06/02/17 06/03/17 06/03/17 21:38 06:27 06:53 WBC 8.4 D RBC 3.10 L Hgb 9.1 L Hct 27.8 L MCV 89.7 MCH 29.3 MCHC 32.6 L RDW 17.4 H Plt Count 171 MPV 9.5 Neut % (Auto) 68.7 Lymph % (Auto) 14.4 L Bent % (Auto) 7.0 Eos % (Auto) 9.1 H Baso % (Auto) 0.8 Neut # 5.8 Lymph # 1.2 Bent # 0.6 Eos # 0.8 H Baso # 0.1 Sodium Potassium Chloride Carbon Dioxide Anion Gap BUN Creatinine Est GFR ( Amer) Est GFR (Non-Af Amer) POC Glucose (mg/dL) 174 H 126 H Random Glucose Calcium 06/03/17 06/03/17 06/03/17 06:53 11:30 16:35 WBC RBC Hgb Hct MCV MCH MCHC RDW Plt Count MPV Neut % (Auto) Lymph % (Auto) Bent % (Auto) Eos % (Auto) Baso % (Auto) Neut # Lymph # Bent # Eos # Baso # Sodium 137 Potassium 4.1 Chloride 95 L Carbon Dioxide 27 Anion Gap 19 BUN 25 H Creatinine 3.9 H Est GFR ( Amer) 21 Est GFR (Non-Af Amer) 18 POC Glucose (mg/dL) 150 H 195 H Random Glucose 112 H Calcium 8.4 L Assessment & Plan - Assessment and Plan (Free Text) Assessment: 36M with ESRD with skin erosion over right permacath Plan: - OR tomorrow for permacath replacement - NPO aftermidnight - PT/PTT - IVF - continue to trend CBC and CMP - continue current medical therapy per primary Thank you for this consult Discussed with Dr. Pratibha Anaya, PGY2
[2017-06-03] MEDS: guaiFENesin DM 100 mg-10 mg/5 ml UD PO PRN (21:44)
[2017-06-03] MEDS: Insulin Detemir 100 units/ml Vial (Levemir) SC SCH (21:45)
[2017-06-04] MEDS ORDERED: Sodium Chloride 0.9% 1,000 ML IV SCH (01:00)
[2017-06-04] MEDS: Albuterol-Ipratrop 3 mg / 0.5 (3 ml) UD INH SCH ×4 (03:08→23:56)
[2017-06-04] MEDS: HYDROmorphone 0.5 mg/0.5 ml ISec IVP PRN ×3 (03:30→18:24)
[2017-06-04] MEDS: Cefepime IV 1 gm in Dextrose 1 GM/50 ML BAG IVPB SCH (06:01)
[2017-06-04] MEDS: Multivitamin Vitamin B Complex (Nephro-Vite) Tab PO SCH (07:57)
[2017-06-04] MEDS: (Novolin R) Insulin Human Regular 100 units/ml vial SC SCH ×4 (07:57→21:44)
[2017-06-04 08:27] VITALS: O2SAT 100
[2017-06-04 09:15] LABS: BASO # 0.1 K/uL (0.0-0.2); BASO % 0.7 % (0.0-2.0); EOS # 0.8 K/uL (0.0-0.7); HEMATOCRIT 28.1 % (35.0-51.0); LYMPH # 1.8 K/uL (1.0-4.3); LYMPH % 21.4 % (20.0-40.0); MEAN CELL VOLUME 89.3 fL (80.0-94.0); MEAN CORPUSCULAR HEMOGLOBIN 28.7 pg (27.0-31.0); MEAN CORPUSCULAR HGB CONC 32.1 g/dL (33.0-37.0); MEAN PLATELET VOLUME 9.2 fL (7.2-11.7); MONO # 0.7 K/uL (0.0-0.8); MONO % 7.9 % (0.0-10.0); NRBC % 0.1 % (0.0-2.0); RED CELL DISTRIBUTION WIDTH 17.5 % (11.5-14.5); WHITE BLOOD COUNT 8.4 K/uL (4.8-10.8)
[2017-06-04 09:21] LABS: INR 1.1
[2017-06-04 09:22] LABS: POTASSIUM 4.7 mmol/L (3.6-5.2)
[2017-06-04 09:24] LABS: BILIRUBIN,TOTAL 0.8 mg/dL (0.2-1.3); TOTAL PROTEIN 7.3 g/dL (6.3-8.3)
[2017-06-04 09:25] LABS: CALCIUM 8.2 mg/dl (8.6-10.4); PHOSPHOROUS 6.3 mg/dL (2.5-4.5)
[2017-06-04 09:26] LABS: MAGNESIUM 1.9 mg/dL (1.6-2.3)
--- NOTE | 2017-06-04 09:35 | RAD ---
PROCEDURE: CHEST RADIOGRAPH, 1 VIEW HISTORY: f/u infiltrates COMPARISON: 06/01/2017 FINDINGS: LUNGS: Right central venous catheter with tip extending into the right atrium. Moderate to severe venous congestion with prominent consolidative changes at the lung bases bilaterally. PLEURA: As above. CARDIOVASCULAR: Cardiomegaly. Status post median sternotomy and CABG. OSSEOUS STRUCTURES: Degenerative changes in the spine and shoulders. VISUALIZED UPPER ABDOMEN: Surgical clips in the right upper abdomen. OTHER FINDINGS: None. IMPRESSION: Right central venous catheter with tip extending into the right atrium. Moderate to severe venous congestion with prominent consolidative changes at the lung bases bilaterally.
--- NOTE | 2017-06-04 09:46 | CP.PCM.PN ---
Subjective - Date & Time of Evaluation Date of Evaluation: 06/04/17 Time of Evaluation: 09:42 - Subjective Subjective: PGY-[address] Liao's Service: Patient seen and examined at bedside. Nursing reports no acute events overnight. Patient for OR permacath replacement today. He reports improvement in breathing and cough since admission, but reports increased pain "all over his body" and is asking to increase dilaudid. He denies chest pain, palpitation , abd pain, N/V/D/C. Objective - Vital Signs/Intake and Output Vital Signs (last 24 hours): Temp Pulse Resp BP Pulse Ox 98 F 57 L 18 123/73 100 06/04/17 07:35 06/04/17 07:35 06/04/17 07:35 06/04/17 07:35 06/04/17 07:35 Intake and Output: 06/04/17 06/04/17 06:59 18:59 Intake Total 530 Balance 530 - Medications Medications: Current Medications Acetaminophen (Tylenol 325mg Tab) 650 mg PO Q4 PRN PRN Reason: Temperature Albuterol/Ipratropium (Duoneb 3 Mg/0.5 Mg (3 Ml) Ud) 3 ml INH RQ4 [facility] Last Admin: 06/04/17 08:54 Dose: 3 ml Amlodipine Besylate (Norvasc) 10 mg PO DAILY [facility] Last Admin: 06/04/17 09:28 Dose: 10 mg Aspirin (Aspirin Chewable) 81 mg PO DAILY [facility] Last Admin: 06/03/17 10:40 Dose: 81 mg Calcitriol (Rocaltrol) 0.25 mcg PO TTS [facility] Calcium Carbonate (Oscal) 500 mg PO BID [facility] Last Admin: 06/03/17 18:55 Dose: Not Given Carvedilol (Coreg) 6.25 mg PO Q12 [facility] Last Admin: 06/04/17 09:28 Dose: 6.25 mg Epoetin Tom (Procrit) 14,000 unit IV TTS [facility] Ergocalciferol (Drisdol 50,000 Intl Units Cap) 1 cap PO Q7D [facility] Last Admin: 06/01/17 21:10 Dose: Not Given Fentanyl (Duragesic) 1 patch TD Q72H [facility] Last Admin: 06/01/17 21:10 Dose: Not Given Guaifenesin (Mucinex La) 600 mg PO BID [facility] Last Admin: 06/03/17 18:54 Dose: Not Given Guaifenesin/Dextromethorphan (Robitussin Dm) 5 ml PO Q4 PRN PRN Reason: Cough Last Admin: 06/03/17 21:44 Dose: 5 ml Heparin Sodium (Porcine) (Heparin) 5,000 units SC Q12 [facility] Last Admin: 06/03/17 12:30 Dose: Not Given Hydromorphone HCl (Dilaudid) 0.5 mg IVP Q6H PRN PRN Reason: Pain, severe (8-10) Last Admin: 06/04/17 09:27 Dose: 0.5 mg Vancomycin HCl 500 mg/ Sodium (Chloride) 100 mls @ 100 mls/hr IVPB TTS [facility] Last Admin: 06/04/17 09:27 Dose: 100 mls/hr Cefepime HCl (Maxipime Iv 1 Gm Premix) 1 gm in 50 mls @ 100 mls/hr IVPB Q24H [facility] Last Admin: 06/04/17 06:01 Dose: 100 mls/hr Sodium Chloride (Sodium Chloride 0.9%) 1,000 mls @ 80 mls/hr IV .[id number] [facility] Last Admin: 06/04/17 01:31 Dose: 80 mls/hr Insulin Detemir (Levemir) 8 unit SC HS [facility] Last Admin: 06/03/17 21:45 Dose: Not Given Insulin Human Regular (Novolin R) 0 unit SC ACHS [facility] PRN Reason: Protocol Last Admin: 06/04/17 07:57 Dose: Not Given Isosorbide Mononitrate (Imdur) 60 mg PO DAILY [facility] Last Admin: 06/04/17 09:28 Dose: 60 mg Levetiracetam (Keppra) 750 mg PO BID [facility] Last Admin: 06/04/17 09:28 Dose: 750 mg Pantoprazole Sodium (Protonix Ec Tab) 40 mg PO DAILY [facility] Last Admin: 06/03/17 10:40 Dose: 40 mg Rosuvastatin Calcium (Crestor) 10 mg PO HS [facility] Last Admin: 06/03/17 21:33 Dose: 10 mg Sertraline HCl (Zoloft) 50 mg PO DAILY [facility] Last Admin: 06/03/17 10:40 Dose: 50 mg Valproate Sodium (Depakene Oral Soln) 250 mg PO QID [facility] Last Admin: 06/03/17 21:47 Dose: 250 mg Vitamin B Complex/Vit C/Folic Acid (Nephro-Courtney) 1 tab PO 0800 [facility] Last Admin: 06/04/17 07:57 Dose: Not Given - Labs Labs: 06/04/17 09:06 06/04/17 09:06 - Additional Findings Additional findings: - Constitutional Appears: Non-toxic, No Acute Distress, Chronically Ill - Head Exam Head Exam: ATRAUMATIC, NORMAL INSPECTION - Eye Exam Eye Exam: EOMI Pupil Exam: NORMAL ACCOMODATION - ENT Exam ENT Exam: Mucous Membranes Moist Additional comments: pt is blind - Respiratory Exam Respiratory Exam: Clear to Ausculation Bilateral, NORMAL BREATHING PATTERN - Cardiovascular Exam Cardiovascular Exam: REGULAR RHYTHM, +S1, +S2 - GI/Abdominal Exam GI & Abdominal Exam: Soft, Normal Bowel Sounds. absent: Distended, Firm, Guarding, Tenderness - Extremities Exam Additional comments: b/l leg amputation - Back Exam Back Exam: NORMAL INSPECTION - Neurological Exam Neurological Exam: Alert, Awake - Psychiatric Exam Psychiatric exam: Normal Affect, Normal Mood Assessment and Plan - Assessment and Plan (Free Text) Plan: Pneumonia Admit to tele Afebrile through course CXR (06/01/17): Diffuse bilateral infiltrates likely representing pulm edema; r/ o fluid overload vs CHF. Confluent right opacity RLL may be alveolar infiltrate. Suspect small B/l effusions (see full report) - CXR (06/04/17): Biapical pleural thickening. Mild pulm venous congestion. Consolidation of lung bases, right greater than left. Cefepime 1 gm Daily Tylenol 650mg Q4H for fever Duoneb Q4H [facility] Mucinex 600mg PO BID Robitussin 5ml PO Q4H prn Blood culture (06/01/17): negative x 48 hours x 2 ESRD on HD schedule Nephrology consult, Dr. Temple, help appreciated - f/u CXR after dialysis to assess pulm edema - recommend hem/onc consult for HIIT - recommend permacath replacement, consult gen/surg Monitor electrolytes Nephrovite 1 tab daily Calcitriol 0.25mcg PO TTS Oscal 500mg PO BID [facility] 03502o TTS Ergocalciferol 50,000units 1 cap Q7D Vancomycin 500mg IV TThSat with dialysis Permacath Replacement Erosion through skin Surgical consult, Dr. Mckinnon, mitzi appreciated - OR today History of HIIT Heparin AB positive on prior admission HOLD heparin/lovenox Hem/Onc: Dr. Ku, mitzi appreciated - f/u reccs T2DM Well-controlled today Levemir 8 units HS RISS f/u A1C, Lipid panel CAD s/p CABG SA 81mg PO Daily Crestor 10mg PO HS Hypertension Well-controlled Norvasc 10mg PO Daily Coreg 6.215mg PO Q12H [facility] 60mg PO Daily Anemia -chronic disease Hgb: 9.0 on AM labs (around baseline according to EMR) Monitor Chronic Pain Fentanyl Q72H Dilaudid 0.5mg IV Q6H Seizure D/O keppra 750mg PO BID Valporic Acid 250 mg PO QID Depression Zoloft 50mg P O Daily Prophylaxis Heparin 5000units Q12H HOLD Protonix 40mg PO Daily NO SCDs due to b/l amputation Severiano Cannon PGY-[address] Liao
[2017-06-04] MEDS: Valproic Acid 250 mg/5 ml UD Cup PO SCH ×3 (09:53→21:43)
[2017-06-04] MEDS: guaiFENesin 600 mg ER Tab PO SCH ×2 (09:54→18:24)
[2017-06-04] MEDS: Pantoprazole 40 mg EC Tab PO SCH (09:55)
[2017-06-04] MEDS ORDERED: EPOETIN ALFA 4,000 UNIT/ML ML Dialysis SC SCH (10:00)
[2017-06-04] MEDS ORDERED: EPOETIN ALFA 4,000 UNIT/ML ML Dialysis IV SCH (10:00)
--- NOTE | 2017-06-04 10:37 | CP.PCM.CON ---
<Jaylin Menon - Last Filed: 06/04/17 13:11> History of Present Illness - History of Present Illness History of Present Illness: Patient is a 36 year old male with past medical history of ESRD w/ dialysis (TTS ), chronic anemia, diabetes mellitus, hypertension, CAD s/p CABG, seizures, asthma, bilateral BKAs, intracardiac thrombus, and HIT, who initially presents to the hospital for coughing up blood. Patient was getting dialysis on Saturday and the nurse noticed bloody phlegm when the patient was coughing. Patient reports that approximately 3 weeks ago, he was treated at [facility] for a "clot in his heart for which he received medication to break up the clot". He currently reports coughing up phlegm (cannot describe phlegm due to blindness bilaterally), and denies chest pain, shortness of breath , fevers, headaches, nausea, and vomiting. PMHx: ESRD w/ dialysis (TTS), chronic anemia, diabetes mellitus, hypertension, CAD s/p CABG, seizures, asthma, bilateral BKAs, intracardiac thrombus, and HIT ( HIT antibody + on 04/11/17) SurgHx: B/L BKA (2011, 2015), Open heart surgery 2010, Eye surgery (cataract in R eye) FamHx: Father- "?liver cancer" SocHx: denies tobacco, alcohol, drug use Allergies: Percocet, Tylenol, morphine; see EMR Medications: See EMR Review of Systems - Constitutional Constitutional: absent: Fever, Headache - EENT Eyes: Other (Hx of cataracts in right eye; blind b/l) - Cardiovascular Cardiovascular: Palpitations. absent: Chest Pain, Dyspnea - Respiratory Respiratory: Cough. absent: Dyspnea, Pain with Coughing Additional comments: productive cough - Gastrointestinal Gastrointestinal: absent: Abdominal Pain, Constipation, Diarrhea, Nausea, Vomiting - Endocrine Endocrine: absent: Palpitations - Hematologic/Lymphatic Hematologic: absent: Easy Bleeding Past Patient History - Infectious Disease Hx of Infectious Diseases: None - Tetanus Immunizations Tetanus Immunization: >10 years Ago - Past Medical History & Family History Past Medical History?: Yes - Past Social History Smoking Status: Never Smoked - CARDIAC Hx Cardiac Disorders: Yes Hx Atrial Fibrillation: Yes Hx Cardia Arrhythmia: Yes Hx Congestive Heart Failure: Yes Hx Hypercholesterolemia: Yes Hx Hypertension: Yes - PULMONARY Hx Respiratory Disorders: Yes Hx Asthma: Yes Hx Bronchitis: Yes Hx Chronic Obstructive Pulmonary Disease (COPD): Yes Hx Pneumonia: Yes - NEUROLOGICAL Hx Neurological Disorder: Yes Hx Seizures: Yes - HEENT Hx HEENT Problems: Yes Hx Blind: Yes (legally blind) Hx Cataracts: Yes - RENAL Hx Chronic Kidney Disease: Yes Type of Dialysis Access: R Jugular Perma Cath Date of Last Dialysis Treatment: 06/01/17 Hx Renal Failure: Yes - ENDOCRINE/METABOLIC Hx Endocrine Disorders: Yes Hx Diabetes Mellitus Type 1: Yes Hx Hyperthyroidism: No Hx Hypothyroidism: Yes - HEMATOLOGICAL/ONCOLOGICAL Hx Blood Disorders: Yes Hx Anemia: Yes Hx Blood Transfusions: Yes Hx Blood Transfusion Reaction: No - INTEGUMENTARY Hx Dermatological Problems: No - MUSCULOSKELETAL/RHEUMATOLOGICAL Hx Musculoskeletal Disorders: Yes Hx Arthritis: Yes Hx Falls: No - GASTROINTESTINAL Hx Gastrointestinal Disorders: Yes Hx Gall Bladder Disease: Yes Hx Gastritis: Yes - GENITOURINARY/GYNECOLOGICAL Hx Genitourinary Disorders: Yes Hx Incontinence: Yes Hx Sexually Transmitted Disorders: No - PSYCHIATRIC Hx Psychophysiologic Disorder: Yes Hx Anxiety: Yes Hx Depression: Yes Hx Substance Use: No - SURGICAL HISTORY Hx Surgeries: Yes Hx Cholecystectomy: Yes (2011) 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/2009) Hx Coronary Stent: Yes - ANESTHESIA Hx Anesthesia: Yes Hx Anesthesia Reactions: No Hx Malignant Hyperthermia: No Has any member of the family had a problem w/ anesthesia?: No Meds Allergies/Adverse Reactions: Allergies Allergy/AdvReac Type Severity Reaction Status Date / Time acetaminophen [From Percocet] Allergy RASH Verified 04/09/17 10:25 atenolol Allergy RASH Verified 04/09/17 10:25 digoxin Allergy RASH Verified 04/09/17 10:25 milk Allergy ITCHING Verified 04/09/17 10:25 morphine Allergy RASH Verified 04/09/17 10:28 oxycodone HCl [From Percocet] Allergy RASH Verified 04/09/17 10:25 - Medications Medications: Current Medications Acetaminophen (Tylenol 325mg Tab) 650 mg PO Q4 PRN PRN Reason: Temperature Albuterol/Ipratropium (Duoneb 3 Mg/0.5 Mg (3 Ml) Ud) 3 ml INH RQ4 [facility] Last Admin: 06/04/17 08:54 Dose: 3 ml Amlodipine Besylate (Norvasc) 10 mg PO DAILY [facility] Last Admin: 06/04/17 09:28 Dose: 10 mg Aspirin (Aspirin Chewable) 81 mg PO DAILY [facility] Last Admin: 06/03/17 10:40 Dose: 81 mg Calcitriol (Rocaltrol) 0.25 mcg PO TTS [facility] Last Admin: 06/04/17 09:55 Dose: Not Given Calcium Carbonate (Oscal) 500 mg PO BID [facility] Last Admin: 06/04/17 09:55 Dose: Not Given Carvedilol (Coreg) 6.25 mg PO Q12 [facility] Last Admin: 06/04/17 09:28 Dose: 6.25 mg Epoetin Tom (Procrit) 14,000 unit IV [facility] Ergocalciferol (Drisdol 50,000 Intl Units Cap) 1 cap PO Q7D [facility] Last Admin: 06/01/17 21:10 Dose: Not Given Fentanyl (Duragesic) 1 patch TD Q72H [facility] Last Admin: 06/01/17 21:10 Dose: Not Given Guaifenesin (Mucinex La) 600 mg PO BID [facility] Last Admin: 06/04/17 09:54 Dose: Not Given Guaifenesin/Dextromethorphan (Robitussin Dm) 5 ml PO Q4 PRN PRN Reason: Cough Last Admin: 06/03/17 21:44 Dose: 5 ml Heparin Sodium (Porcine) (Heparin) 5,000 units SC Q12 [facility] Last Admin: 06/03/17 12:30 Dose: Not Given Hydromorphone HCl (Dilaudid) 0.5 mg IVP Q6H PRN PRN Reason: Pain, severe (8-10) Last Admin: 06/04/17 09:27 Dose: 0.5 mg Vancomycin HCl 500 mg/ Sodium (Chloride) 100 mls @ 100 mls/hr IVPB [facility] Last Admin: 06/04/17 09:27 Dose: 100 mls/hr Cefepime HCl (Maxipime Iv 1 Gm Premix) 1 gm in 50 mls @ 100 mls/hr IVPB Q24H [facility] Last Admin: 06/04/17 06:01 Dose: 100 mls/hr Sodium Chloride (Sodium Chloride 0.9%) 1,000 mls @ 80 mls/hr IV .[id number] [facility] Last Admin: 06/04/17 01:31 Dose: 80 mls/hr Insulin Detemir (Levemir) 8 unit SC HS [facility] Last Admin: 06/03/17 21:45 Dose: Not Given Insulin Human Regular (Novolin R) 0 unit SC [facility] PRN Reason: Protocol Last Admin: 06/04/17 07:57 Dose: Not Given Isosorbide Mononitrate (Imdur) 60 mg PO DAILY [facility] Last Admin: 06/04/17 09:28 Dose: 60 mg Levetiracetam (Keppra) 750 mg PO BID [facility] Last Admin: 06/04/17 09:28 Dose: 750 mg Pantoprazole Sodium (Protonix Ec Tab) 40 mg PO DAILY [facility] Last Admin: 06/04/17 09:55 Dose: Not Given Rosuvastatin Calcium (Crestor) 10 mg PO [facility] Last Admin: 06/03/17 21:33 Dose: 10 mg Sertraline HCl (Zoloft) 50 mg PO DAILY [facility] Last Admin: 06/04/17 09:55 Dose: Not Given Valproate Sodium (Depakene Oral Soln) 250 mg PO QID [facility] Last Admin: 06/04/17 09:53 Dose: 250 mg Vitamin B Complex/Vit C/Folic Acid (Nephro-Courtney) 1 tab PO 0800 [facility] Last Admin: 06/04/17 07:57 Dose: Not Given Physical Exam - Head Exam Head Exam: ATRAUMATIC, NORMAL INSPECTION - Eye Exam Eye Exam: absent: Normal appearance - ENT Exam ENT Exam: Mucous Membranes Moist - Respiratory Exam Respiratory Exam: Decreased Breath Sounds, NORMAL BREATHING PATTERN. absent: Rhonchi, Wheezes, Respiratory Distress - Cardiovascular Exam Cardiovascular Exam: +S1, +S2. absent: Bradycardia, Tachycardia - GI/Abdominal Exam GI & Abdominal Exam: absent: Distended, Guarding, Tenderness - Extremities Exam Extremities exam: Negative for: normal inspection Additional comments: Bilateral BKAs - Neurological Exam Neurological exam: Alert, Oriented x3 - Psychiatric Exam Psychiatric exam: Flat Affect - Skin Skin Exam: Dry, Normal Color, Warm Results - Vital Signs Recent Vital Signs: Last Vital Signs Temp 98 F 06/04/17 07:35 Pulse 57 L 06/04/17 07:35 Resp 18 06/04/17 07:35 BP 123/73 06/04/17 07:35 Pulse Ox 100 06/04/17 07:35 - Labs Result Diagrams: 06/04/17 09:06 06/04/17 09:06 Labs: Laboratory Results - last 24 hr 06/03/17 06/03/17 06/03/17 11:30 16:35 21:18 WBC RBC Hgb Hct MCV MCH MCHC RDW Plt Count MPV Neut % (Auto) Lymph % (Auto) [place] % (Auto) Eos % (Auto) Baso % (Auto) Neut # Lymph # [place] # Eos # Baso # PT INR Sodium Potassium Chloride Carbon Dioxide Anion Gap BUN Creatinine Est GFR ( Amer) Est GFR (Non-Af Amer) POC Glucose (mg/dL) 150 H 195 H 157 H Random Glucose Hemoglobin A1c Calcium Phosphorus Magnesium Total Bilirubin AST ALT Alkaline Phosphatase Total Protein Albumin Globulin Albumin/Globulin Ratio Triglycerides Cholesterol LDL Cholesterol Direct HDL Cholesterol 06/04/17 06/04/17 06/04/17 06:34 09:06 09:06 WBC 8.4 RBC 3.15 L Hgb 9.0 L Hct 28.1 L MCV 89.3 MCH 28.7 MCHC 32.1 L RDW 17.5 H Plt Count 194 MPV 9.2 Neut % (Auto) 60.0 Lymph % (Auto) 21.4 [place] % (Auto) 7.9 Eos % (Auto) 10.0 H Baso % (Auto) 0.7 Neut # 5.0 Lymph # 1.8 [place] # 0.7 Eos # 0.8 H Baso # 0.1 PT INR Sodium 138 Potassium 4.7 Chloride 94 L Carbon Dioxide 25 Anion Gap 24 H BUN 33 H Creatinine 5.8 H Est GFR ( Amer) 14 Est GFR (Non-Af Amer) 11 POC Glucose (mg/dL) 116 H Random Glucose 95 Hemoglobin A1c Calcium 8.2 L Phosphorus 6.3 H Magnesium 1.9 Total Bilirubin 0.8 AST 21 ALT 14 L D Alkaline Phosphatase 109 Total Protein 7.3 Albumin 3.6 Globulin 3.7 Albumin/Globulin Ratio 1.0 Triglycerides 169 H D Cholesterol 106 LDL Cholesterol Direct 40 HDL Cholesterol 27 L 06/04/17 06/04/17 09:06 09:06 WBC RBC Hgb Hct MCV MCH MCHC RDW Plt Count MPV Neut % (Auto) Lymph % (Auto) [place] % (Auto) Eos % (Auto) Baso % (Auto) Neut # Lymph # [place] # Eos # Baso # PT 13.0 H INR 1.1 Sodium Potassium Chloride Carbon Dioxide Anion Gap BUN Creatinine Est GFR ( Amer) Est GFR (Non-Af Amer) POC Glucose (mg/dL) Random Glucose Hemoglobin A1c 5.8 Calcium Phosphorus Magnesium Total Bilirubin AST ALT Alkaline Phosphatase Total Protein Albumin Globulin Albumin/Globulin Ratio Triglycerides Cholesterol LDL Cholesterol Direct HDL Cholesterol Assessment & Plan (1) HIT (heparin-induced thrombocytopenia) Assessment and Plan: Ordered HIT antibody and Serotonin release assay- follow up results. Hold heparin. Status: Acute <Koko Ku - Last Filed: 06/04/17 20:55> Meds - Medications Medications: Current Medications Acetaminophen (Tylenol 325mg Tab) 650 mg PO Q4 PRN PRN Reason: Temperature Albuterol/Ipratropium (Duoneb 3 Mg/0.5 Mg (3 Ml) Ud) 3 ml INH RQ4 [facility] Last Admin: 06/04/17 11:35 Dose: Not Given Aspirin (Aspirin Chewable) 81 mg PO DAILY [facility] Last Admin: 06/03/17 10:40 Dose: 81 mg Calcitriol (Rocaltrol) 0.25 mcg PO TTS [facility] Last Admin: 06/04/17 09:55 Dose: Not Given Carvedilol (Coreg) 6.25 mg PO Q12 [facility] Last Admin: 06/04/17 09:28 Dose: 6.25 mg Epoetin Tom (Procrit) 10,000 unit IV TTS [facility] Epoetin Tom (Procrit) 4,000 unit IV TTS [facility] Fentanyl (Duragesic) 1 patch TD Q72H [facility] Last Admin: 06/01/17 21:10 Dose: Not Given Guaifenesin (Mucinex La) 600 mg PO BID [facility] Last Admin: 06/04/17 18:24 Dose: 600 mg Guaifenesin/Dextromethorphan (Robitussin Dm) 5 ml PO Q4 PRN PRN Reason: Cough Last Admin: 06/03/17 21:44 Dose: 5 ml Heparin Sodium (Porcine) (Heparin) 5,000 units SC Q12 [facility] Last Admin: 06/03/17 12:30 Dose: Not Given Hydromorphone HCl (Dilaudid) 0.5 mg IVP Q6H PRN PRN Reason: Pain, severe (8-10) Last Admin: 06/04/17 18:24 Dose: 0.5 mg Vancomycin HCl 500 mg/ Sodium (Chloride) 100 mls @ 100 mls/hr IVPB TTS [facility] Last Admin: 06/04/17 09:27 Dose: 100 mls/hr Cefepime HCl (Maxipime Iv 1 Gm Premix) 1 gm in 50 mls @ 100 mls/hr IVPB Q24H [facility] Last Admin: 06/04/17 06:01 Dose: 100 mls/hr Insulin Detemir (Levemir) 8 unit SC [facility] Last Admin: 06/03/17 21:45 Dose: Not Given Insulin Human Regular (Novolin R) 0 unit SC [facility] PRN Reason: Protocol Last Admin: 06/04/17 18:31 Dose: Not Given Isosorbide Mononitrate (Imdur) 60 mg PO DAILY [facility] Last Admin: 06/04/17 09:28 Dose: 60 mg Levetiracetam (Keppra) 750 mg PO BID [facility] Last Admin: 06/04/17 18:24 Dose: 750 mg Pantoprazole Sodium (Protonix Ec Tab) 40 mg PO DAILY [facility] Last Admin: 06/04/17 09:55 Dose: Not Given Rosuvastatin Calcium (Crestor) 10 mg PO [facility] Last Admin: 06/03/17 21:33 Dose: 10 mg Sertraline HCl (Zoloft) 50 mg PO DAILY [facility] Last Admin: 06/04/17 09:55 Dose: Not Given Sevelamer Carbonate (Renvela) 800 mg PO TIDCC [facility] Last Admin: 06/04/17 18:34 Dose: 800 mg Valproate Sodium (Depakene Oral Soln) 250 mg PO QID [facility] Last Admin: 06/04/17 18:33 Dose: 250 mg Vitamin B Complex/Vit C/Folic Acid (Nephro-Courtney) 1 tab PO 0800 [facility] Last Admin: 06/04/17 07:57 Dose: Not Given Results - Vital Signs Recent Vital Signs: Last Vital Signs Temp 97.5 F L 06/04/17 18:00 Pulse 68 06/04/17 18:00 Resp 18 06/04/17 18:00 BP 125/70 06/04/17 18:00 Pulse Ox 100 06/04/17 18:00 - Labs Result Diagrams: 06/04/17 09:06 06/04/17 09:06 Labs: Laboratory Results - last 24 hr 06/03/17 06/04/17 06/04/17 21:18 06:34 09:06 WBC 8.4 RBC 3.15 L Hgb 9.0 L Hct 28.1 L MCV 89.3 MCH 28.7 MCHC 32.1 L RDW 17.5 H Plt Count 194 MPV 9.2 Neut % (Auto) 60.0 Lymph % (Auto) 21.4 [place] % (Auto) 7.9 Eos % (Auto) 10.0 H Baso % (Auto) 0.7 Neut # 5.0 Lymph # 1.8 [place] # 0.7 Eos # 0.8 H Baso # 0.1 PT INR Sodium Potassium Chloride Carbon Dioxide Anion Gap BUN Creatinine Est GFR ( Amer) Est GFR (Non-Af Amer) POC Glucose (mg/dL) 157 H 116 H Random Glucose Hemoglobin A1c Calcium Phosphorus Magnesium Total Bilirubin AST ALT Alkaline Phosphatase Total Protein Albumin Globulin Albumin/Globulin Ratio Triglycerides Cholesterol LDL Cholesterol Direct HDL Cholesterol 06/04/17 06/04/17 06/04/17 09:06 09:06 09:06 WBC RBC Hgb Hct MCV MCH MCHC RDW Plt Count MPV Neut % (Auto) Lymph % (Auto) [place] % (Auto) Eos % (Auto) Baso % (Auto) Neut # Lymph # [place] # Eos # Baso # PT 13.0 H INR 1.1 Sodium 138 Potassium 4.7 Chloride 94 L Carbon Dioxide 25 Anion Gap 24 H BUN 33 H Creatinine 5.8 H Est GFR ( Amer) 14 Est GFR (Non-Af Amer) 11 POC Glucose (mg/dL) Random Glucose 95 Hemoglobin A1c 5.8 Calcium 8.2 L Phosphorus 6.3 H Magnesium 1.9 Total Bilirubin 0.8 AST 21 ALT 14 L D Alkaline Phosphatase 109 Total Protein 7.3 Albumin 3.6 Globulin 3.7 Albumin/Globulin Ratio 1.0 Triglycerides 169 H D Cholesterol 106 LDL Cholesterol Direct 40 HDL Cholesterol 27 L 06/04/17 06/04/17 11:19 16:47 WBC RBC Hgb Hct MCV MCH MCHC RDW Plt Count MPV Neut % (Auto) Lymph % (Auto) [place] % (Auto) Eos % (Auto) Baso % (Auto) Neut # Lymph # [place] # Eos # Baso # PT INR Sodium Potassium Chloride Carbon Dioxide Anion Gap BUN Creatinine Est GFR ( Amer) Est GFR (Non-Af Amer) POC Glucose (mg/dL) 131 H 113 H Random Glucose Hemoglobin A1c Calcium Phosphorus Magnesium Total Bilirubin AST ALT Alkaline Phosphatase Total Protein Albumin Globulin Albumin/Globulin Ratio Triglycerides Cholesterol LDL Cholesterol Direct HDL Cholesterol Assessment & Plan - Assessment and Plan (Free Text) Assessment: Pt seen and examined, agree with residents consult. Pt has multiple medical problems, including ESRD on HD, intracardiac thrombus, anemia, found to have heparin Ab positivity in April. Will repeat heparin Ab and send serotonin release assay for further w/u. Hold heparin and lovenox. Anemia work up sent; anemia of CKD. Thank you for this interesting consult.
[2017-06-04] MEDS ORDERED: Epoetin Alfa 10,000 unit/ml Dialysis IV SCH (11:30)
[2017-06-04] MEDS ORDERED: HEPARIN-NS 5,000 UNITS/500 ML 5,000 UNIT/500 ML BAG IV ONE (14:26)
[2017-06-04] MEDS: Lidocaine 1% Inj (20ml) ONE ×2 (14:53→15:53)
[2017-06-04] MEDS ORDERED: Sodium Chloride 0.9% 1,000 ML IV ONE (15:20)
[2017-06-04] MEDS ORDERED: Lactated Ringer's 1,000 ML IV ONE (15:20)
[2017-06-04] MEDS ORDERED: Midazolam 2 MG/2 ML VIAL ONE (15:30)
--- NOTE | 2017-06-04 15:31 | CP.PCM.PN ---
Subjective - Date & Time of Evaluation Date of Evaluation: 06/04/17 Time of Evaluation: 15:20 - Subjective Subjective: Nephrology Consultation: Assessment: stable Pulmonay edema Diabetic chronic Kidney Disease (E11.22) Hypertensive Chronic Kidney Disease (I12.0) End stage renal disease (N18.6) dependence on hemodialysis (Z99.2) (TTS) via permacath Anemia (D64.9), Hyperphosphatemia (E83.39), Secondary Hyperparathyroidism (E21.1 ), HTN (I12.0) CAD s/p CABG, diastolic CHF, pA flutter/fib, intra-cardiac thrombus, Heparin induced thrombocytopenia, hx of seizure, blindness Plan: Will plan for isolated UF tomorrow and routine dialysis today. Continue with Nephrovite 1 tab/day. d/c IV fluid PRBC as needed for anemia. On HANNAH as epogen started phos binders. d/c calcium carbonate/Vit D. Continue with calcitriol with dialysis. Last PTH level 286. BP control with meds as ordered. Patient not on RAAS skyler. will d/c norvasc as BP on low side. Glycemic control, Dialysis consistent diet Further work up/management as per primary team Dose meds/antibiotics (if needed) for ESRD status. Avoid fleets enema/magnesium based laxatives. avoid heparin. HIT further work up as per heme permacath change as per vascular repeat CXR after tomorrow dialysis Thanks for allowing me to participate in care of your patient. Will follow patient with you. Please call if any Qs Dr Eric Temple Office: [phone] HPI: Pt is a 36 y/o M with hx of ESRD on hemodialysis (TTS) via permacath, last dialysis sat, chronic anemia, hyperphosphatemia, secondary hyperparathyroidism, Diabetes Mellitus, hypertension, CAD s/p CABG, diastilic CHF, pA flutter/fib, intra-cardiac thrombus, Heparin indueced thrombocytopenia presented with complaints of cough with blood in phlegm. ROS; Denies chest pain, palpitation, shortness of breath Physical Examination: General Appearance: Comfortable, in no acute respiratory distress, co-operative . Vitals reviewed and noted as below Lungs: Normal respiratory rate/effort. Breath sounds bilateral equal clear Heart: Normal rate. s1s2 normal. No rub or gallop. Extremities: no edema. No varicose veins. has b/l AKA Neurological: Patient is alert, awake and oriented to person, place and time. No focal deficit. Strength bilateral appropriate and equal Skin: Warm and dry. Normal turgor. No rash. Palpitation: Normal elasticity for age Abdomen: Abdomen is soft. Bowel sounds +. There is no abdominal tenderness, no guarding/rigidity or organomegaly MSK: no joint tenderness or swelling. Digits and nails normal, no deformity : kidney or bladder not palpable Access: permacath Labs/imaging reviewed. Past medical history, past surgical history, family history, social history, allergy reviewed and noted as below Family Hx: no hx of CKD. Non contributory Objective - Vital Signs/Intake and Output Vital Signs (last 24 hours): Temp Pulse Resp BP Pulse Ox 98 F 57 L 18 123/73 100 06/04/17 07:35 06/04/17 07:35 06/04/17 07:35 06/04/17 07:35 06/04/17 07:35 Intake and Output: 06/04/17 06/04/17 06:59 18:59 Intake Total 530 263 Balance 530 263 - Medications Medications: Current Medications Acetaminophen (Tylenol 325mg Tab) 650 mg PO Q4 PRN PRN Reason: Temperature Albuterol/Ipratropium (Duoneb 3 Mg/0.5 Mg (3 Ml) Ud) 3 ml INH RQ4 [facility] Last Admin: 06/04/17 11:35 Dose: Not Given Aspirin (Aspirin Chewable) 81 mg PO DAILY [facility] Last Admin: 06/03/17 10:40 Dose: 81 mg Calcitriol (Rocaltrol) 0.25 mcg PO TTS [facility] Last Admin: 06/04/17 09:55 Dose: Not Given Carvedilol (Coreg) 6.25 mg PO Q12 [facility] Last Admin: 06/04/17 09:28 Dose: 6.25 mg Epoetin Tom (Procrit) 10,000 unit IV TTS [facility] Epoetin Tom (Procrit) 4,000 unit IV TTS [facility] Fentanyl (Duragesic) 1 patch TD Q72H [facility] Last Admin: 06/01/17 21:10 Dose: Not Given Guaifenesin (Mucinex La) 600 mg PO BID [facility] Last Admin: 06/04/17 09:54 Dose: Not Given Guaifenesin/Dextromethorphan (Robitussin Dm) 5 ml PO Q4 PRN PRN Reason: Cough Last Admin: 06/03/17 21:44 Dose: 5 ml Heparin Sodium (Porcine) (Heparin) 5,000 units SC Q12 [facility] Last Admin: 06/03/17 12:30 Dose: Not Given Hydromorphone HCl (Dilaudid) 0.5 mg IVP Q6H PRN PRN Reason: Pain, severe (8-10) Last Admin: 06/04/17 09:27 Dose: 0.5 mg Vancomycin HCl 500 mg/ Sodium (Chloride) 100 mls @ 100 mls/hr IVPB TTS [facility] Last Admin: 06/04/17 09:27 Dose: 100 mls/hr Cefepime HCl (Maxipime Iv 1 Gm Premix) 1 gm in 50 mls @ 100 mls/hr IVPB Q24H [facility] Last Admin: 06/04/17 06:01 Dose: 100 mls/hr Insulin Detemir (Levemir) 8 unit SC [facility] Last Admin: 06/03/17 21:45 Dose: Not Given Insulin Human Regular (Novolin R) 0 unit SC ACHS [facility] PRN Reason: Protocol Last Admin: 06/04/17 11:41 Dose: Not Given Isosorbide Mononitrate (Imdur) 60 mg PO DAILY [facility] Last Admin: 06/04/17 09:28 Dose: 60 mg Levetiracetam (Keppra) 750 mg PO BID [facility] Last Admin: 06/04/17 09:28 Dose: 750 mg Pantoprazole Sodium (Protonix Ec Tab) 40 mg PO DAILY [facility] Last Admin: 06/04/17 09:55 Dose: Not Given Rosuvastatin Calcium (Crestor) 10 mg PO HS [facility] Last Admin: 06/03/17 21:33 Dose: 10 mg Sertraline HCl (Zoloft) 50 mg PO DAILY [facility] Last Admin: 06/04/17 09:55 Dose: Not Given Sevelamer Carbonate (Renvela) 800 mg PO TIDCC [facility] Last Admin: 06/04/17 12:20 Dose: Not Given Valproate Sodium (Depakene Oral Soln) 250 mg PO QID [facility] Last Admin: 06/04/17 09:53 Dose: 250 mg Vitamin B Complex/Vit C/Folic Acid (Nephro-Courtney) 1 tab PO 0800 [facility] Last Admin: 06/04/17 07:57 Dose: Not Given - Labs Labs: 06/04/17 09:06 06/04/17 09:06 PT 13.0 SECONDS (9.7-12.2) H 06/04/17 09:06 INR 1.1 06/04/17 09:06
--- NOTE | 2017-06-04 16:36 | PCM.SURG1 ---
Surgeon's Initial Post Op Note - Surgeon's Notes Surgeon: Dr. Mckinnon Prosthetics Lab Technician: Dr. Masterson PGY-3 Type of Anesthesia: IV Sedation, Local Pre-Operative Diagnosis: Renal failure, exposed Permacath catheter Operative Findings: exposed Permacath catheter Post-Operative Diagnosis: Renal failure, exposed Permacath catheter Operation Performed: Right IJ Permacath replacement Specimen/Specimens Removed: permacath Estimated Blood Loss: EBL {In ML}: 30 Blood Products Given: N/A Drains Used: No Drains Post-Op Condition: Fair Date of Surgery/Procedure: 06/04/17 Time of Surgery/Procedure: 16:37
[2017-06-04] MEDS ORDERED: HYDROmorphone 0.5 mg/0.5 ml ISec IVP PRN (16:53)
--- NOTE | 2017-06-04 17:25 | RAD ---
HISTORY: s/p Right IJ permacath COMPARISON: Chest x-ray performed 06/03/17 TECHNIQUE: Chest, one view. FINDINGS: Examination limited by habitus and hypoinflation. Right-sided dialysis catheter with distal tips terminating at the level of the right atrium. LUNGS: Biapical pleural thickening. Mild pulmonary venous congestion. Consolidation at the lung bases, right greater than left. Please note that chest x-ray has limited sensitivity for the detection of pulmonary masses. PLEURA: No significant pleural effusion identified. No definite pneumothorax . CARDIOVASCULAR: Cardiomegaly with evidence of CABG. Median sternotomy wires. OSSEOUS STRUCTURES: Osseous demineralization. Degenerative changes. VISUALIZED UPPER ABDOMEN: Right upper quadrant surgical clips. OTHER FINDINGS: None. IMPRESSION: Right-sided dialysis catheter with distal tips terminating at the level of the right atrium. Biapical pleural thickening. Mild pulmonary venous congestion. Consolidation at the lung bases, right greater than left.
[2017-06-04] MEDS: Insulin Detemir 100 units/ml Vial (Levemir) SC SCH (21:43)
[2017-06-05] MEDS: Albuterol-Ipratrop 3 mg / 0.5 (3 ml) UD INH SCH ×3 (03:17→11:19)
[2017-06-05] MEDS: HYDROmorphone 0.5 mg/0.5 ml ISec IVP PRN ×2 (04:33→11:15)
[2017-06-05] MEDS: Cefepime IV 1 gm in Dextrose 1 GM/50 ML BAG IVPB SCH (06:10)
--- NOTE | 2017-06-05 06:26 | OP ---
PROCEDURE DATE: 06/04/2017 PREOPERATIVE DIAGNOSIS: Exposed PermCath. POSTOPERATIVE DIAGNOSIS: Exposed PermCath. PROCEDURE CARRIED OUT: Removal of PermCath, placement of new one. SURGEON: Phil Mckinnon Jr., MD IN FLIGHT TECHNICIAN: Dr. Masterson. ANESTHESIA ADMINISTERED BY: Torres Andrews MD INDICATIONS: A 36-year-old man with renal insufficiency, wide, unable to see a permanent access in the arm. The patient has a PermCath that is placed elsewhere. The catheter site is the neck is exposed and catheter is exposed. OPERATIVE FINDINGS: The old catheter was removed. The guidewire was placed through the remnant. A new tunnel created. A new exit site created and this was then brought out on the chest wall in a tunneled fashion and sutured to the skin. The blood loss during the procedure was approximately 20 mL. Operation carried out is removal and replacement of a PermCath, right jugular vein. This is all done under fluoroscopy. Phil Mckinnon Jr., MD
[2017-06-05] MEDS: (Novolin R) Insulin Human Regular 100 units/ml vial SC SCH ×3 (08:35→16:40)
[2017-06-05] MEDS: Multivitamin Vitamin B Complex (Nephro-Vite) Tab PO SCH (09:00)
--- NOTE | 2017-06-05 09:44 | CP.PCM.PN ---
Subjective - Date & Time of Evaluation Date of Evaluation: 06/05/17 Time of Evaluation: 09:38 - Subjective Subjective: Patient was seen and examined at bedside getting dialysis. Patient reports having whole body pains, short of breath, and feeling tired. 12 point review of systems otherwise negative. Objective - Vital Signs/Intake and Output Vital Signs (last 24 hours): Temp Pulse Resp BP Pulse Ox 97.6 F 66 18 146/60 100 06/05/17 07:30 06/05/17 07:30 06/05/17 07:30 06/05/17 07:30 06/05/17 07:30 - Medications Medications: Current Medications Acetaminophen (Tylenol 325mg Tab) 650 mg PO Q4 PRN PRN Reason: Temperature Albuterol/Ipratropium (Duoneb 3 Mg/0.5 Mg (3 Ml) Ud) 3 ml INH RQ4 [facility] Last Admin: 06/05/17 08:32 Dose: 3 ml Aspirin (Aspirin Chewable) 81 mg PO DAILY [facility] Last Admin: 06/03/17 10:40 Dose: 81 mg Calcitriol (Rocaltrol) 0.25 mcg PO TTS [facility] Last Admin: 06/04/17 09:55 Dose: Not Given Carvedilol (Coreg) 6.25 mg PO Q12 [facility] Last Admin: 06/04/17 21:42 Dose: Not Given Epoetin Tom (Procrit) 10,000 unit IV TTS [facility] Epoetin Tom (Procrit) 4,000 unit IV TTS [facility] Fentanyl (Duragesic) 1 patch TD Q72H [facility] Last Admin: 06/04/17 21:43 Dose: 1 patch Guaifenesin (Mucinex La) 600 mg PO BID [facility] Last Admin: 06/04/17 18:24 Dose: 600 mg Guaifenesin/Dextromethorphan (Robitussin Dm) 5 ml PO Q4 PRN PRN Reason: Cough Last Admin: 06/03/17 21:44 Dose: 5 ml Heparin Sodium (Porcine) (Heparin) 5,000 units SC Q12 [facility] Last Admin: 06/03/17 12:30 Dose: Not Given Hydromorphone HCl (Dilaudid) 0.5 mg IVP Q6H PRN PRN Reason: Pain, severe (8-10) Last Admin: 06/05/17 04:33 Dose: 0.5 mg Vancomycin HCl 500 mg/ Sodium (Chloride) 100 mls @ 100 mls/hr IVPB TTS [facility] Last Admin: 06/04/17 09:27 Dose: 100 mls/hr Cefepime HCl (Maxipime Iv 1 Gm Premix) 1 gm in 50 mls @ 100 mls/hr IVPB Q24H [facility] Last Admin: 06/05/17 06:10 Dose: 100 mls/hr Insulin Detemir (Levemir) 8 unit SC HS [facility] Last Admin: 06/04/17 21:43 Dose: 8 unit Insulin Human Regular (Novolin R) 0 unit SC ACHS [facility] PRN Reason: Protocol Last Admin: 06/05/17 08:35 Dose: Not Given Isosorbide Mononitrate (Imdur) 60 mg PO DAILY [facility] Last Admin: 06/04/17 09:28 Dose: 60 mg Levetiracetam (Keppra) 750 mg PO BID [facility] Last Admin: 06/04/17 18:24 Dose: 750 mg Pantoprazole Sodium (Protonix Ec Tab) 40 mg PO DAILY [facility] Last Admin: 06/04/17 09:55 Dose: Not Given Rosuvastatin Calcium (Crestor) 10 mg PO HS [facility] Last Admin: 06/04/17 21:42 Dose: 10 mg Sertraline HCl (Zoloft) 50 mg PO DAILY [facility] Last Admin: 06/04/17 09:55 Dose: Not Given Sevelamer Carbonate (Renvela) 800 mg PO TIDCC [facility] Last Admin: 06/04/17 18:34 Dose: 800 mg Valproate Sodium (Depakene Oral Soln) 250 mg PO QID [facility] Last Admin: 06/04/17 21:43 Dose: 250 mg Vitamin B Complex/Vit C/Folic Acid (Nephro-Courtney) 1 tab PO 0800 [facility] Last Admin: 06/04/17 07:57 Dose: Not Given - Labs Labs: 06/04/17 09:06 06/04/17 09:06 PT 13.0 SECONDS (9.7-12.2) H 06/04/17 09:06 INR 1.1 06/04/17 09:06 - Head Exam Head Exam: ATRAUMATIC, NORMAL INSPECTION - Eye Exam Eye Exam: absent: Normal appearance (blind bilaterally) - ENT Exam ENT Exam: Mucous Membranes Dry - Respiratory Exam Respiratory Exam: NORMAL BREATHING PATTERN. absent: Respiratory Distress - Cardiovascular Exam Cardiovascular Exam: +S1, +S2 - GI/Abdominal Exam GI & Abdominal Exam: Soft. 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 Ordered HIT antibody and Serotonin release assay- follow up results. Hold heparin and lovenox. Status: Acute (2) Anemia Assessment & Plan: Anemia likely secondary to CKD. Status: Chronic
[2017-06-05 10:23] LABS: BASO # 0.1 K/uL (0.0-0.2); BASO % 0.6 % (0.0-2.0); EOS # 0.9 K/uL (0.0-0.7); EOS % 11.1 % (0.0-4.0); HEMATOCRIT 26.2 % (35.0-51.0); LYMPH # 1.2 K/uL (1.0-4.3); LYMPH % 14.9 % (20.0-40.0); MEAN CELL VOLUME 89.9 fL (80.0-94.0); MEAN CORPUSCULAR HGB CONC 32.2 g/dL (33.0-37.0); MEAN PLATELET VOLUME 9.4 fL (7.2-11.7); MONO # 0.6 K/uL (0.0-0.8); NRBC % 0.1 % (0.0-2.0); RED CELL DISTRIBUTION WIDTH 17.4 % (11.5-14.5); WHITE BLOOD COUNT 8.2 K/uL (4.8-10.8)
[2017-06-05] MEDS: Valproic Acid 250 mg/5 ml UD Cup PO SCH ×2 (10:24→14:00)
[2017-06-05] MEDS: guaiFENesin 600 mg ER Tab PO SCH (10:25)
[2017-06-05] MEDS: Pantoprazole 40 mg EC Tab PO SCH (10:25)
[2017-06-05 10:44] LABS: POTASSIUM 4.5 mmol/L (3.6-5.2)
[2017-06-05 10:46] LABS: ALB/GLOB RATIO 0.7 (1.0-2.1); BILIRUBIN,TOTAL 0.8 mg/dL (0.2-1.3); TOTAL PROTEIN 7.6 g/dL (6.3-8.3)
[2017-06-05 10:47] LABS: CALCIUM 7.9 mg/dl (8.6-10.4); MAGNESIUM 1.8 mg/dL (1.6-2.3); PHOSPHOROUS 6.8 mg/dL (2.5-4.5)
--- NOTE | 2017-06-05 12:14 | CP.PCM.PN ---
Subjective - Date & Time of Evaluation Date of Evaluation: 06/05/17 Time of Evaluation: 12:13 - Subjective Subjective: Follow up Nephrology Consultation: Assessment: stable Pulmonay edema Diabetic chronic Kidney Disease (E11.22) Hypertensive Chronic Kidney Disease (I12.0) End stage renal disease (N18.6) dependence on hemodialysis (Z99.2) (TTS) via permacath Anemia (D64.9), Hyperphosphatemia (E83.39), Secondary Hyperparathyroidism (E21.1 ), HTN (I12.0) CAD s/p CABG, diastolic CHF, pA flutter/fib, intra-cardiac thrombus, Heparin induced thrombocytopenia, hx of seizure, blindness Plan: plan dialysis today sa ordered. Continue with Nephrovite 1 tab/day. d/c IV fluid PRBC as needed for anemia. On HANNAH as epogen started phos binders. d/c calcium carbonate/Vit D. Continue with calcitriol with dialysis. Last PTH level 286. BP control with meds as ordered. Patient not on RAAS skyler. will d/c norvasc as BP on low side. Glycemic control, Dialysis consistent diet Further work up/management as per primary team Dose meds/antibiotics (if needed) for ESRD status. Avoid fleets enema/magnesium based laxatives. avoid heparin. HIT further work up as per heme permacath changed Thanks for allowing me to participate in care of your patient. Will follow patient with you. Please call if any Qs Dr Eric Temple Office: [phone] HPI: Pt is a 36 y/o M with hx of ESRD on hemodialysis (TTS) via permacath, last dialysis sat, chronic anemia, hyperphosphatemia, secondary hyperparathyroidism, Diabetes Mellitus, hypertension, CAD s/p CABG, diastilic CHF, pA flutter/fib, intra-cardiac thrombus, Heparin indueced thrombocytopenia presented with complaints of cough with blood in phlegm. ROS; Denies chest pain, palpitation, c/o shortness of breath Physical Examination: seen during HD General Appearance: Comfortable, in no acute respiratory distress, co-operative . Vitals reviewed and noted as below Lungs: Normal respiratory rate/effort. Breath sounds bilateral equal clear Heart: Normal rate. s1s2 normal. No rub or gallop. Extremities: no edema. No varicose veins. has b/l AKA Neurological: Patient is alert, awake and oriented to person, place and time. No focal deficit. Strength bilateral appropriate and equal Skin: Warm and dry. Normal turgor. No rash. Palpitation: Normal elasticity for age Abdomen: Abdomen is soft. Bowel sounds +. There is no abdominal tenderness, no guarding/rigidity or organomegaly MSK: no joint tenderness or swelling. Digits and nails normal, no deformity : kidney or bladder not palpable Access: permacath Labs/imaging reviewed. Past medical history, past surgical history, family history, social history, allergy reviewed and noted as below Family Hx: no hx of CKD. Non contributory Objective - Vital Signs/Intake and Output Vital Signs (last 24 hours): Temp Pulse Resp BP Pulse Ox 97.4 F L 75 16 153/79 H 100 06/05/17 10:00 06/05/17 10:00 06/05/17 10:00 06/05/17 11:15 06/05/17 10:00 - Medications Medications: Current Medications Acetaminophen (Tylenol 325mg Tab) 650 mg PO Q4 PRN PRN Reason: Temperature Albuterol/Ipratropium (Duoneb 3 Mg/0.5 Mg (3 Ml) Ud) 3 ml INH RQ4 [facility] Last Admin: 06/05/17 11:19 Dose: Not Given Aspirin (Aspirin Chewable) 81 mg PO DAILY [facility] Last Admin: 06/05/17 10:24 Dose: Not Given Calcitriol (Rocaltrol) 0.25 mcg PO TTS [facility] Last Admin: 06/04/17 09:55 Dose: Not Given Carvedilol (Coreg) 6.25 mg PO Q12 [facility] Last Admin: 06/05/17 10:24 Dose: Not Given Epoetin Tom (Procrit) 10,000 unit IV TTS [facility] Epoetin Tom (Procrit) 4,000 unit IV TTS [facility] Fentanyl (Duragesic) 1 patch TD Q72H [facility] Last Admin: 06/04/17 21:43 Dose: 1 patch Guaifenesin (Mucinex La) 600 mg PO BID [facility] Last Admin: 06/05/17 10:25 Dose: Not Given Guaifenesin/Dextromethorphan (Robitussin Dm) 5 ml PO Q4 PRN PRN Reason: Cough Last Admin: 06/03/17 21:44 Dose: 5 ml Hydromorphone HCl (Dilaudid) 0.5 mg IVP Q6H PRN PRN Reason: Pain, severe (8-10) Last Admin: 06/05/17 11:15 Dose: 0.5 mg Vancomycin HCl 500 mg/ Sodium (Chloride) 100 mls @ 100 mls/hr IVPB TTS [facility] Last Admin: 06/04/17 09:27 Dose: 100 mls/hr Cefepime HCl (Maxipime Iv 1 Gm Premix) 1 gm in 50 mls @ 100 mls/hr IVPB Q24H [facility] Last Admin: 06/05/17 06:10 Dose: 100 mls/hr Insulin Detemir (Levemir) 8 unit SC HS [facility] Last Admin: 06/04/17 21:43 Dose: 8 unit Insulin Human Regular (Novolin R) 0 unit SC ACHS [facility] PRN Reason: Protocol Last Admin: 06/05/17 08:35 Dose: Not Given Isosorbide Mononitrate (Imdur) 60 mg PO DAILY [facility] Last Admin: 06/05/17 10:25 Dose: Not Given Levetiracetam (Keppra) 750 mg PO BID [facility] Last Admin: 06/05/17 10:25 Dose: Not Given Pantoprazole Sodium (Protonix Ec Tab) 40 mg PO DAILY [facility] Last Admin: 06/05/17 10:25 Dose: Not Given Rosuvastatin Calcium (Crestor) 10 mg PO HS [facility] Last Admin: 06/04/17 21:42 Dose: 10 mg Sertraline HCl (Zoloft) 50 mg PO DAILY [facility] Last Admin: 06/05/17 10:27 Dose: Not Given Sevelamer Carbonate (Renvela) 800 mg PO TIDCC [facility] Last Admin: 06/05/17 09:00 Dose: Not Given Valproate Sodium (Depakene Oral Soln) 250 mg PO QID [facility] Last Admin: 06/05/17 10:24 Dose: Not Given Vitamin B Complex/Vit C/Folic Acid (Nephro-Courtney) 1 tab PO 0800 [facility] Last Admin: 06/05/17 09:00 Dose: Not Given - Labs Labs: 06/05/17 10:06 06/05/17 10:06 PT 13.0 SECONDS (9.7-12.2) H 06/04/17 09:06 INR 1.1 06/04/17 09:06 APTT 34 SECONDS (21-34) 06/05/17 10:06
[2017-06-05] MEDS ORDERED: EPOETIN ALFA 4,000 UNIT/ML ML Dialysis IV SCH (13:00)
--- NOTE | 2017-06-05 13:09 | RAD ---
PROCEDURE: Intraoperative Fluoroscopy. HISTORY: RENAL FAILURE FINDINGS: Fluoroscopic assistance was provided for right-sided PermCath placement. Please refer to the operative report from
--- NOTE | 2017-06-05 14:33 | CP.PCM.PN ---
Subjective - Date & Time of Evaluation Date of Evaluation: 06/05/17 Time of Evaluation: 06:30 - Subjective Subjective: Vascular Surgery Dr. Mckinnon Pt S&E @bedside. NAEO. no complaints. tolerating diet. Objective - Vital Signs/Intake and Output Vital Signs (last 24 hours): Temp Pulse Resp BP Pulse Ox 97.6 F 73 16 121/67 100 06/05/17 13:30 06/05/17 13:30 06/05/17 13:30 06/05/17 13:30 06/05/17 13:30 - Medications Medications: Current Medications Acetaminophen (Tylenol 325mg Tab) 650 mg PO Q4 PRN PRN Reason: Temperature Albuterol/Ipratropium (Duoneb 3 Mg/0.5 Mg (3 Ml) Ud) 3 ml INH RQ4 [facility] Last Admin: 06/05/17 11:19 Dose: Not Given Aspirin (Aspirin Chewable) 81 mg PO DAILY [facility] Last Admin: 06/05/17 10:24 Dose: Not Given Calcitriol (Rocaltrol) 0.25 mcg PO TTS [facility] Last Admin: 06/04/17 09:55 Dose: Not Given Carvedilol (Coreg) 6.25 mg PO Q12 [facility] Last Admin: 06/05/17 10:24 Dose: Not Given Epoetin Tom (Procrit) 10,000 unit IV TTS [facility] Last Admin: 06/05/17 12:55 Dose: 10,000 unit Epoetin Tom (Procrit) 4,000 unit IV TTS [facility] Last Admin: 06/05/17 12:54 Dose: 4,000 unit Fentanyl (Duragesic) 1 patch TD Q72H [facility] Last Admin: 06/04/17 21:43 Dose: 1 patch Guaifenesin (Mucinex La) 600 mg PO BID [facility] Last Admin: 06/05/17 10:25 Dose: Not Given Guaifenesin/Dextromethorphan (Robitussin Dm) 5 ml PO Q4 PRN PRN Reason: Cough Last Admin: 06/03/17 21:44 Dose: 5 ml Hydromorphone HCl (Dilaudid) 0.5 mg IVP Q6H PRN PRN Reason: Pain, severe (8-10) Last Admin: 06/05/17 11:15 Dose: 0.5 mg Vancomycin HCl 500 mg/ Sodium (Chloride) 100 mls @ 100 mls/hr IVPB TTS [facility] Last Admin: 06/04/17 09:27 Dose: 100 mls/hr Cefepime HCl (Maxipime Iv 1 Gm Premix) 1 gm in 50 mls @ 100 mls/hr IVPB Q24H [facility] Last Admin: 06/05/17 06:10 Dose: 100 mls/hr Insulin Detemir (Levemir) 8 unit SC HS [facility] Last Admin: 06/04/17 21:43 Dose: 8 unit Insulin Human Regular (Novolin R) 0 unit SC ACHS [facility] PRN Reason: Protocol Last Admin: 06/05/17 08:35 Dose: Not Given Isosorbide Mononitrate (Imdur) 60 mg PO DAILY [facility] Last Admin: 06/05/17 10:25 Dose: Not Given Levetiracetam (Keppra) 500 mg PO BID [facility] Pantoprazole Sodium (Protonix Ec Tab) 40 mg PO DAILY [facility] Last Admin: 06/05/17 10:25 Dose: Not Given Rosuvastatin Calcium (Crestor) 10 mg PO HS [facility] Last Admin: 06/04/17 21:42 Dose: 10 mg Sertraline HCl (Zoloft) 50 mg PO DAILY [facility] Last Admin: 06/05/17 10:27 Dose: Not Given Sevelamer Carbonate (Renvela) 800 mg PO TIDCC [facility] Last Admin: 06/05/17 09:00 Dose: Not Given Valproate Sodium (Depakene Oral Soln) 250 mg PO QID [facility] Last Admin: 06/05/17 10:24 Dose: Not Given Vitamin B Complex/Vit C/Folic Acid (Nephro-Courtney) 1 tab PO 0800 [facility] Last Admin: 06/05/17 09:00 Dose: Not Given - Labs Labs: 06/05/17 10:06 06/05/17 10:06 PT 13.0 SECONDS (9.7-12.2) H 06/04/17 09:06 INR 1.1 06/04/17 09:06 APTT 34 SECONDS (21-34) 06/05/17 10:06 - Constitutional Appears: Non-toxic, No Acute Distress - Head Exam Head Exam: NORMAL INSPECTION - Neck Exam Additional comments: permacath in place. dressing c/d/i - Respiratory Exam Respiratory Exam: NORMAL BREATHING PATTERN. absent: Accessory Muscle Use, Respiratory Distress - Cardiovascular Exam Cardiovascular Exam: absent: Bradycardia, Tachycardia - GI/Abdominal Exam GI & Abdominal Exam: Soft. absent: Distended, Tenderness - Neurological Exam Neurological Exam: Alert, Awake, Oriented x3 - Psychiatric Exam Psychiatric exam: Normal Affect, Normal Mood - Skin Skin Exam: Dry, Intact, Normal Color, Warm Assessment and Plan - Assessment and Plan (Free Text) Assessment: 36 y/o F POD#1 s/p permacath placement - catheter good to use for dialysis - cont medical management - pt cleared for discharge from surgical standpoint Pt discussed w/ Dr. Pratibha Cerrato DO PGY2
[2017-06-05 15:54] VITALS: RESP 20; TEMP 98.1
[2017-06-05 15:56] VITALS: BP 115/72; PULSE 81
[2017-06-05] MEDS ORDERED: HYDROmorphone 0.5 mg/0.5 ml ISec IVP ONE (16:18)
--- NOTE | 2017-06-05 19:29 | CP.PCM.PN ---
Subjective - Date & Time of Evaluation Date of Evaluation: 06/05/17 Time of Evaluation: 10:00 - Subjective Subjective: PGY3 on medicine Dr. Liao service: Pt seen and examined after dialysis. Pt reports no complaints. Pt to be discharged home today with instruction to continue home meds. Script given for Dilaudid 2mg PO q6 PRN for severe pain #10 with no refills. Transport arranged as per social work. Pt instructed to follow up with his dialysis as usual, as well as PMD and Dr. Ku as scheduled. Objective - Vital Signs/Intake and Output Vital Signs (last 24 hours): Temp Pulse Resp BP Pulse Ox 98.1 F 81 20 115/72 100 06/05/17 15:48 06/05/17 15:48 06/05/17 15:48 06/05/17 15:48 06/05/17 15:48 - Labs Labs: 06/05/17 10:06 06/05/17 10:06 PT 13.0 SECONDS (9.7-12.2) H 06/04/17 09:06 INR 1.1 06/04/17 09:06 APTT 34 SECONDS (21-34) 06/05/17 10:06
--- NOTE | 2017-06-06 11:36 | CARD ---
APPROVED REPORT EKG Measurement Heart [id number] [id number] <Conclusion> Normal sinus rhythm Possible Left atrial enlargement Left ventricular hypertrophy with repolarization abnormality Prolonged QT Abnormal ECG
== END 2017-06-05 16:50 | disposition home or self-care (01) | DRG 541 ==
LOC: C.ER 17:55 → C.9E 20:14 → C.6T 21:48
PROVIDERS: ADMIT Internal Medicine Pulmonary Disease; ATTEND Internal Medicine Pulmonary Disease
PROC: 5A1D70Z Performance of Urinary Filtration, Intermittent, Less than 6 Hours Per Day (ICD-10-PCS; principal; 2017-06-03)
PROC: 0J2TXYZ Change Other Device in Trunk Subcutaneous Tissue and Fascia, External Approach (ICD-10-PCS; 2017-06-04)
PROC: 05HM33Z Insertion of Infusion Device into Right Internal Jugular Vein, Percutaneous Approach (ICD-10-PCS; 2017-06-04)
PROC: B513ZZA Fluoroscopy of Right Jugular Veins, Guidance (ICD-10-PCS; 2017-06-04)
DX: J18.9 Pneumonia, unspecified organism (principal); I13.2 Hypertensive heart and chronic kidney disease with heart failure and with stage 5 chronic kidney disease, or end stage renal disease; I50.30 Unspecified diastolic (congestive) heart failure; N18.6 End stage renal disease; T82.898A Other specified complication of vascular prosthetic devices, implants and grafts, initial encounter; D75.82 Heparin induced thrombocytopenia (HIT); J44.0 Chronic obstructive pulmonary disease with (acute) lower respiratory infection; E11.22 Type 2 diabetes mellitus with diabetic chronic kidney disease; E11.51 Type 2 diabetes mellitus with diabetic peripheral angiopathy without gangrene; D63.1 Anemia in chronic kidney disease; G30.9 Alzheimer's disease, unspecified; N25.81 Secondary hyperparathyroidism of renal origin; R04.2 Hemoptysis; F02.80 Dementia in other diseases classified elsewhere, unspecified severity, without behavioral disturbance, psychotic disturbance, mood disturbance, and anxiety; E83.39 Other disorders of phosphorus metabolism; E03.9 Hypothyroidism, unspecified; H54.8 Legal blindness, as defined in USA; E78.00 Pure hypercholesterolemia, unspecified; I25.10 Atherosclerotic heart disease of native coronary artery without angina pectoris; I48.91 Unspecified atrial fibrillation; L98.9 Disorder of the skin and subcutaneous tissue, unspecified; Z79.4 Long term (current) use of insulin; Z86.73 Personal history of transient ischemic attack (TIA), and cerebral infarction without residual deficits; Z87.11 Personal history of peptic ulcer disease; Z87.01 Personal history of pneumonia (recurrent); Z89.511 Acquired absence of right leg below knee; Z89.512 Acquired absence of left leg below knee; Z90.49 Acquired absence of other specified parts of digestive tract; Z95.1 Presence of aortocoronary bypass graft; Z95.5 Presence of coronary angioplasty implant and graft; Z99.2 Dependence on renal dialysis

== ENCOUNTER 2017-06-24 13:19 | Emergency (ER) | payer OTHER ==
[2017-06-24 13:20] VITALS: PULSE 66
[2017-06-24 13:57] VITALS: BMI 21.4
--- NOTE | 2017-06-24 14:01 | C.PDOC ---
History Of Present Illness 36 y/o male with PMHx of HTN and DM presents to ED with complaints of chest pain and for evaluation of mal functioning port placed 3 weeks ago. Patient states she went for dialysis 3 days ago an noted catheter was not working. Patient denies shortness of breath, nausea, headache, cough or any other complaints at this time. Time Seen by Provider: 06/24/17 13:38 Chief Complaint (Nursing): Chest Pain History Per: Patient History/Exam Limitations: no limitations Onset/Duration Of Symptoms: Days Current Symptoms Are (Timing): Still Present Quality: "Pain" Associated Symptoms: denies: Nausea Past Medical History Reviewed: Historical Data, Nursing Documentation, Vital Signs Vital Signs: Last Vital Signs Temp 98.7 F 06/24/17 21:16 Pulse 78 06/24/17 21:16 Resp 20 06/24/17 21:16 BP 176/64 H 06/24/17 21:16 Pulse Ox 100 06/24/17 22:51 - Medical History PMH: Alzheimer's Disease, Anemia, Anxiety, Arthritis, Asthma, Atrial Fibrillation, Bronchitis, CAD, Cardia Arrhythmia, CHF, COPD, CVA, Depression, Diabetes, Deep Vein Thrombosis, Gastritis, Gastrointestinal Ulcer, Gall Bladder Disease, HTN, Hypercholesterolemia, Hypothyroidism, Pneumonia, End Stage Renal Disease, Chronic Kidney Disease, Seizures Surgical History: CABG (12/2009), Cholecystectomy (2011), Coronary Stent - [facility] (06/01/17) ABDOMINAL WALL SINOGRAM (12/31/13) C.A.T. SCAN OF ABDOMEN (10/31/13) CENTRAL VENOUS CATHETER PLACEMENT WITH GUIDANCE (02/10/15) CHANGE OTHER DEVICE IN TRUNK SUBCU/FASCIA, MICROMATIC HONE OPERATOR APPROACH (06/01/17) DILATE R ANT TIB ART W DRUG-ELUT INTRALUM, PERC (08/12/15) DILATION OF LEFT FEMORAL ARTERY, PERCUTANEOUS APPROACH (07/04/16) DILATION OF RIGHT FEMORAL ARTERY, PERCUTANEOUS APPROACH (08/12/15) DILATION OF RIGHT POPLITEAL ARTERY, PERCUTANEOUS APPROACH (08/12/15) DX ULTRASOUND-HEART (01/05/13) ENTERAL INFUSION OF CONCENTRATED NUT. SUBSTANCES (06/28/13) EXCIS DEBRIDE OF WOUND, INFECT, OR BURN (08/03/14) EXCISION OF STOMACH, ENDO, DIAGN (03/03/17) EXTIRPATION OF MATTER FROM L FEM ART, PERC APPROACH (07/04/16) EXTIRPATION OF MATTER FROM R FEM ART, PERC APPROACH (08/12/15) EXTIRPATION OF MATTER FROM R POPL ART, PERC APPROACH (08/12/15) FLUOROSCOPY OF L LOW EXTREM ART USING L OSM CONTRAST (08/12/15) FLUOROSCOPY OF R LOW EXTREM ART USING L OSM CONTRAST (08/12/15) FLUOROSCOPY OF RIGHT JUGULAR VEINS, GUIDANCE (06/01/17) FREE SKIN GRAFT NEC (08/03/14) HEAD SOFT TISS X-RAY NEC (04/15/13) HEMODIALYSIS (04/28/15) INCIS W REM OF FORIEGN BODY OR DEV FROM SKIN & SUBCUT TISSUE (08/08/13) INSERT INFUSION DEV IN R INT JUGULAR VEIN, PERC (06/01/17) INSERTION OF INFUSION DEV INTO R SUBCLAV VEIN, PERC APPROACH (01/19/16) INSERTION OF INFUSION DEV INTO SUP VENA CAVA, PERC APPROACH (05/17/17) INSPECTION OF UPPER INTESTINAL TRACT, ENDO (03/03/17) INTRODUCE OF OTH THROMBOLYTIC INTO PERIPH ART, PERC APPROACH (08/12/15) LAPAROSCOPIC CHOLECYSTECTOMY (09/21/13) LOC EXC LES METATAR/TAR (06/01/14) PACKED CELL TRANSFUSION (06/01/14) PERCUTAN LIVER ASPIRAT (12/31/13) PERFORMANCE OF URINARY FILTRATION, MULTIPLE (05/17/17) PERFORMANCE OF URINARY FILTRATION, SINGLE (12/18/16) SKIN & SUBQ INCISION NEC (10/24/14) TETANUS TOXOID ADMINIST (06/13/14) TRANSFUSE NONAUT RED BLOOD CELLS IN PERIPH VEIN, PERC (04/09/17) ULTRASONOGRAPHY OF RIGHT AND LEFT HEART (04/09/17) ULTRASONOGRAPHY OF SUPERIOR VENA CAVA, GUIDANCE (02/20/17) VENOUS CATHETERIZATION FOR RENAL DIALYSIS (08/08/13) VENOUS CATHETERIZATION NEC (04/30/13) Family History: States: No Known Family Hx - Social History Hx Tobacco Use: No Hx Alcohol Use: No Hx Substance Use: No - Immunization History Hx Tetanus Toxoid Vaccination: Yes Hx Influenza Vaccination: No Hx Pneumococcal Vaccination: Yes Review Of Systems Except As Marked, All Systems Reviewed And Found Negative. Constitutional: Negative for: Fever, Chills Cardiovascular: Positive for: Chest Pain. Negative for: Palpitations Respiratory: Negative for: Cough, Shortness of Breath Gastrointestinal: Negative for: Nausea Skin: Negative for: Rash Physical Exam - Physical Exam Appears: Non-toxic, No Acute Distress Skin: Warm, Dry, No Rash Head: Normacephalic Eye(s): bilateral: Other (Cornea opacified) Oral Mucosa: Moist Neck: Normal ROM, Supple Chest: Symmetrical, Other (Right anterior chest wall dialysis catheter w/suture sita above right clavicle) Cardiovascular: Murmur (systolic ) Respiratory: Normal Breath Sounds, No Rales, No Rhonchi, No Wheezing Gastrointestinal/Abdominal: Soft, No Tenderness, No Guarding, No Rebound Extremity: Other (Bilateral BKA secondary to severe vascular disease. No signs of infection noted) Neurological/Psych: Oriented x3, Normal Motor, Normal Sensation ED Course And Treatment ECG: Interpreted By Me ECG Rhythm: Sinus Rhythm O2 Sat by Pulse Oximetry: 100 (RA) Pulse Ox Interpretation: Normal Interpretation Of Abnormal: NSR at 96 bpm,flipped t's in 1,AVL.LVH,no acute STTW changes.No old ekg for comparison. Old EKG from 06/01 was compared and reveals that the flipped t's are old.There are no acute ekg changes Progress Note: Spoke with surgery who recommend alteplase 2mg in 2 cc saline, attempt aspiration in 30 min.If not functioning will admit for replacement of cath tomorrow. Patient keeps insisting he needs to stay at the hospital for his chest pain which appears to clearly be musculoskeletal if existent at all. Spoke with Dr. Liao, covering for Dr. Li, who agrees patient can be safely discharged home. Patient became very angry, belligerent, and began using foul language when explained he can be safely discharged home. Patient was observed on multiple occasions and found to be resting comfortably in bed, having extensive phone conversations over the course of several hours. Medical Decision Making Medical Decision Making: Impression: Dialysis catheter malfunction Plan: * Call Vascular service for protocol of thrombolysis in catheter * Labs Disposition - Disposition Referrals: Von Panda MD [Staff Provider] - Disposition: HOME/ ROUTINE Disposition Time: 22:53 Condition: GOOD Instructions: End Stage Kidney Disease (ED), Perma-cath Placement (GEN) Forms: [employer] (Maldivian) - Clinical Impression Clinical Impression: Chest wall pain, Dialysis catheter clot or failure - Scribe Statement The provider has reviewed the documentation as recorded by the Scribe Esdras Tsai All medical record entries made by the Scribe were at my direction and personally dictated by me. I have reviewed the chart and agree that the record accurately reflects my personal performance of the history, physical exam, medical decision making, and the department course for this patient. I have also personally directed, reviewed, and agree with the discharge instructions and disposition.
--- NOTE | 2017-06-24 14:42 | CP.PCM.CON ---
History of Present Illness - History of Present Illness History of Present Illness: Surgery: Dr. Mckinnon CC: non-functioning dialysis catheter HPI: 36M presents w. non-functioning R IJ permacath. Pt states he went to dialysis on saturday and was told that it was clotted. Recommend 4cc of Cathflo in each port. After 45min flush again. If dialysis catheter remains non-functioning, we will replace it tomorrow in [place] Discussed w. Dr. Pratibha Pino PGY3 Past Patient History - Infectious Disease Hx of Infectious Diseases: None - Tetanus Immunizations Tetanus Immunization: >10 years Ago - Past Medical History & Family History Past Medical History?: Yes - Past Social History Smoking Status: Never Smoked - CARDIAC Hx Atrial Fibrillation: Yes Hx Cardia Arrhythmia: Yes Hx Congestive Heart Failure: Yes Hx Hypercholesterolemia: Yes Hx Hypertension: Yes - PULMONARY Hx Asthma: Yes Hx Bronchitis: Yes Hx Chronic Obstructive Pulmonary Disease (COPD): Yes Hx Pneumonia: Yes - NEUROLOGICAL Hx Alzheimer's Disease: Yes Hx Seizures: Yes - HEENT Hx HEENT Problems: Yes Hx Blind: Yes (legally blind) Hx Cataracts: Yes - RENAL Hx Chronic Kidney Disease: Yes - ENDOCRINE/METABOLIC Hx Hypothyroidism: Yes - HEMATOLOGICAL/ONCOLOGICAL Hx Anemia: Yes - INTEGUMENTARY Hx Dermatological Problems: No - MUSCULOSKELETAL/RHEUMATOLOGICAL Hx Arthritis: Yes - GASTROINTESTINAL Hx Gall Bladder Disease: Yes Hx Gastritis: Yes - GENITOURINARY/GYNECOLOGICAL Hx Sexually Transmitted Disorders: No - PSYCHIATRIC Hx Anxiety: Yes Hx Depression: Yes Hx Substance Use: No - SURGICAL HISTORY Hx Cholecystectomy: Yes (2011) 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/2009) Hx Coronary Stent: Yes - ANESTHESIA Hx Anesthesia: Yes Hx Anesthesia Reactions: No Hx Malignant Hyperthermia: No Meds Allergies/Adverse Reactions: Allergies Allergy/AdvReac Type Severity Reaction Status Date / Time acetaminophen [From Percocet] Allergy RASH Verified 06/24/17 13:47 atenolol Allergy RASH Verified 06/24/17 13:47 digoxin Allergy RASH Verified 06/24/17 13:47 milk Allergy ITCHING Verified 06/24/17 13:47 morphine Allergy RASH Verified 06/24/17 13:47 oxycodone HCl [From Percocet] Allergy RASH Verified 06/24/17 13:47 Results - Vital Signs Recent Vital Signs: Last Vital Signs Temp 98.1 F 06/24/17 13:41 Pulse 82 10/23/17 13:53 Resp 18 06/24/17 13:53 BP 176/72 H 06/24/17 13:53 Pulse Ox 100 06/24/17 14:39 - Labs Labs: Laboratory Results - last 24 hr 06/24/17 13:48 POC Glucose (mg/dL) 256 H
[2017-06-24] MEDS ORDERED: HYDROmorphone 0.5 mg/0.5 ml ISec ONE (16:09)
[2017-06-24] MEDS ORDERED: HYDROmorphone 1 mg/ml ISec IVP STA ×2 (16:10→20:09)
[2017-06-24 18:08] VITALS: RESP 20
[2017-06-24] MEDS ORDERED: HYDROmorphone 1 mg/ml ISec ONE (19:47)
[2017-06-24 21:17] VITALS: BP 176/64; PULSE 78; TEMP 98.7
[2017-06-24 22:51] VITALS: O2SAT 100
== END 2017-06-24 22:23 | disposition home or self-care (01) ==
LOC: C.ER 13:19
DX: T82.41XA Breakdown (mechanical) of vascular dialysis catheter, initial encounter (principal); Y83.8 Other surgical procedures as the cause of abnormal reaction of the patient, or of later complication, without mention of misadventure at the time of the procedure; I12.0 Hypertensive chronic kidney disease with stage 5 chronic kidney disease or end stage renal disease; N18.6 End stage renal disease; Z99.2 Dependence on renal dialysis; E11.9 Type 2 diabetes mellitus without complications; E78.00 Pure hypercholesterolemia, unspecified; I25.10 Atherosclerotic heart disease of native coronary artery without angina pectoris; J44.9 Chronic obstructive pulmonary disease, unspecified
CPT/HCPCS: 82948; 96374; 96375; 96376; 99285; J1170; J2997

== ENCOUNTER 2017-07-04 16:07 | Emergency (ER) | payer OTHER ==
[2017-07-04 16:07] VITALS: PULSE 66
[2017-07-04 16:24] VITALS: BMI 18.8
[2017-07-04 16:37] VITALS: RESP 20
--- NOTE | 2017-07-04 16:58 | C.PDOC ---
History Of Present Illness Patient is a 37 y/o male who presents to the ED with a complaint of CP two hours into dialysis session. Patient has over 60 presentations for CP in the ED. No other physical complaints at this time. Time Seen by Provider: 07/04/17 16:36 Chief Complaint (Nursing): Chest Pain History Per: Patient History/Exam Limitations: no limitations Current Symptoms Are (Timing): Still Present Recent travel outside of the [place]: No Past Medical History Reviewed: Historical Data, Nursing Documentation, Vital Signs Vital Signs: Last Vital Signs Temp 98.0 F 07/04/17 22:11 Pulse 78 07/04/17 22:11 Resp 20 07/04/17 22:11 BP 153/83 H 07/04/17 22:11 Pulse Ox 99 07/04/17 22:11 - Medical History PMH: Alzheimer's Disease, Anemia, Anxiety, Arthritis, Asthma, Atrial Fibrillation, Bronchitis, CAD, Cardia Arrhythmia, CHF, COPD, CVA, Depression, Diabetes, Deep Vein Thrombosis, Gastritis, Gastrointestinal Ulcer, Gall Bladder Disease, HTN, Hypercholesterolemia, Hypothyroidism, Pneumonia, End Stage Renal Disease, Chronic Kidney Disease, Seizures Denies: Hyperthyroidism, Sexually Transmitted Disease Surgical History: CABG (12/2009), Cholecystectomy (2011), Coronary Stent - [facility] (06/01/17) ABDOMINAL WALL SINOGRAM (12/31/13) C.A.T. SCAN OF ABDOMEN (10/31/13) CENTRAL VENOUS CATHETER PLACEMENT WITH GUIDANCE (02/10/15) CHANGE OTHER DEVICE IN TRUNK SUBCU/FASCIA, STAFFING SPECIALIST APPROACH (06/01/17) DILATE R ANT TIB ART W DRUG-ELUT INTRALUM, PERC (08/12/15) DILATION OF LEFT FEMORAL ARTERY, PERCUTANEOUS APPROACH (07/04/16) DILATION OF RIGHT FEMORAL ARTERY, PERCUTANEOUS APPROACH (08/12/15) DILATION OF RIGHT POPLITEAL ARTERY, PERCUTANEOUS APPROACH (08/12/15) DX ULTRASOUND-HEART (01/05/13) ENTERAL INFUSION OF CONCENTRATED NUT. SUBSTANCES (06/28/13) EXCIS DEBRIDE OF WOUND, INFECT, OR BURN (08/03/14) EXCISION OF STOMACH, ENDO, DIAGN (03/03/17) EXTIRPATION OF MATTER FROM L FEM ART, PERC APPROACH (07/04/16) EXTIRPATION OF MATTER FROM R FEM ART, PERC APPROACH (08/12/15) EXTIRPATION OF MATTER FROM R POPL ART, PERC APPROACH (08/12/15) FLUOROSCOPY OF L LOW EXTREM ART USING L OSM CONTRAST (08/12/15) FLUOROSCOPY OF R LOW EXTREM ART USING L OSM CONTRAST (08/12/15) FLUOROSCOPY OF RIGHT JUGULAR VEINS, GUIDANCE (06/01/17) FREE SKIN GRAFT NEC (08/03/14) HEAD SOFT TISS X-RAY NEC (04/15/13) HEMODIALYSIS (04/28/15) INCIS W REM OF FORIEGN BODY OR DEV FROM SKIN & SUBCUT TISSUE (08/08/13) INSERT INFUSION DEV IN R INT JUGULAR VEIN, PERC (06/01/17) INSERTION OF INFUSION DEV INTO R SUBCLAV VEIN, PERC APPROACH (01/19/16) INSERTION OF INFUSION DEV INTO SUP VENA CAVA, PERC APPROACH (05/17/17) INSPECTION OF UPPER INTESTINAL TRACT, ENDO (03/03/17) INTRODUCE OF OTH THROMBOLYTIC INTO PERIPH ART, PERC APPROACH (08/12/15) LAPAROSCOPIC CHOLECYSTECTOMY (09/21/13) LOC EXC LES METATAR/TAR (06/01/14) PACKED CELL TRANSFUSION (06/01/14) PERCUTAN LIVER ASPIRAT (12/31/13) PERFORMANCE OF URINARY FILTRATION, MULTIPLE (05/17/17) PERFORMANCE OF URINARY FILTRATION, SINGLE (12/18/16) SKIN & SUBQ INCISION NEC (10/24/14) TETANUS TOXOID ADMINIST (06/13/14) TRANSFUSE NONAUT RED BLOOD CELLS IN PERIPH VEIN, PERC (04/09/17) ULTRASONOGRAPHY OF RIGHT AND LEFT HEART (04/09/17) ULTRASONOGRAPHY OF SUPERIOR VENA CAVA, GUIDANCE (02/20/17) VENOUS CATHETERIZATION FOR RENAL DIALYSIS (08/08/13) VENOUS CATHETERIZATION NEC (04/30/13) Family History: States: Unknown Family Hx - Social History Hx Tobacco Use: No Hx Alcohol Use: No Hx Substance Use: No - Immunization History Hx Tetanus Toxoid Vaccination: No Hx Influenza Vaccination: No Hx Pneumococcal Vaccination: Yes Review Of Systems Cardiovascular: Positive for: Chest Pain Physical Exam - Physical Exam Appears: Well, Non-toxic, No Acute Distress Skin: Normal Color, Warm, Dry Head: Atraumatic, Normacephalic Eye(s): bilateral: Other (blind) Oral Mucosa: Moist Chest: Symmetrical Cardiovascular: Rhythm Regular, No Murmur Respiratory: Normal Breath Sounds, No Rales, No Rhonchi, No Wheezing Gastrointestinal/Abdominal: Soft, No Tenderness Extremity: Other (bilateral BKA) Neurological/Psych: Oriented x3, Normal Speech, Normal Cognition ED Course And Treatment - Laboratory Results Result Diagrams: 07/04/17 17:02 07/04/17 17:02 Lab Interpretation: Abnormal (baseline for this pt, trop neg.) ECG: Interpreted By Me ECG Rhythm: Sinus Rhythm ECG Interpretation: Normal Rate From EC O2 Sat by Pulse Oximetry: 99 Pulse Ox Interpretation: Normal - Radiology CXR: Interpreted by Me CXR Interpretation: Yes: No Acute Disease, Heart Size (+ megaly), Other (+ mild chf, (baseline)) Medical Decision Making Medical Decision Making: "chest pain " during dialysis, but HD mostly completed today over 60 ED presentations for "cp" most recently 06/24/17 with again normal w/u and pt declining to be d/c. d/w PMD, Sybil Li, ok to d/c and f/u as opt. Again, pt seen and observed multiple times essentially pain free speaking comfortably and calmly on phone without mention of chest discomforts- consider pt's advance dementia, anxiety, or drug seeking Disposition Doctor Will See Patient In The: Office Counseled Patient/Family Regarding: Studies Performed, Diagnosis - Disposition Referrals: Sybil Li MD [Staff Provider] - Disposition: HOME/ ROUTINE Disposition Time: 18:12 Condition: GOOD Additional Instructions: normal eval today follow-up with Dr. Sybil Li as needed Instructions: Chest Pain (ED) Forms: [facility] (Turkish) - Clinical Impression Clinical Impression: Chest discomfort - Scribe Statement The provider has reviewed the documentation as recorded by the Scribe Flori Celeste All medical record entries made by the Scribe were at my direction and personally dictated by me. I have reviewed the chart and agree that the record accurately reflects my personal performance of the history, physical exam, medical decision making, and the department course for this patient. I have also personally directed, reviewed, and agree with the discharge instructions and disposition.
[2017-07-04 17:05] LABS: BASO # 0.1 K/uL (0.0-0.2); EOS # 0.7 K/uL (0.0-0.7); MEAN CORPUSCULAR HEMOGLOBIN 27.6 pg (27.0-31.0); MEAN CORPUSCULAR HGB CONC 31.4 g/dL (33.0-37.0); MEAN PLATELET VOLUME 8.8 fL (7.2-11.7); MONO # 1.3 K/uL (0.0-0.8); MONO % 13.5 % (0.0-10.0); NRBC % 0.1 % (0.0-2.0); RED CELL DISTRIBUTION WIDTH 19.1 % (11.5-14.5); WHITE BLOOD COUNT 9.7 K/uL (4.8-10.8)
[2017-07-04 17:11] LABS: MEAN CELL VOLUME 87.9 fL (80.0-94.0)
[2017-07-04 17:13] LABS: POTASSIUM 3.9 mmol/L (3.6-5.2)
[2017-07-04 17:15] LABS: BILIRUBIN,TOTAL 0.7 mg/dL (0.2-1.3)
[2017-07-04 17:16] LABS: ALB/GLOB RATIO 1.3 (1.0-2.1); CALCIUM 8.6 mg/dl (8.6-10.4); TOTAL PROTEIN 7.5 g/dL (6.3-8.3)
[2017-07-04 17:32] LABS: TROPONIN I 0.069 ng/mL (0.00-0.120)
--- NOTE | 2017-07-04 17:46 | RAD ---
HISTORY: SOB COMPARISON: Chest x-ray performed 06/04/17 TECHNIQUE: Chest, one view. FINDINGS: Right-sided dialysis catheter extends the expected location of the right atrium. Examination limited by habitus and hypoinflation. LUNGS: Moderate pulmonary venous congestion. PLEURA: No significant pleural effusion identified. No definite pneumothorax . CARDIOVASCULAR: Cardiomegaly. OSSEOUS STRUCTURES: No acute osseous abnormality identified. VISUALIZED UPPER ABDOMEN: Unremarkable. OTHER FINDINGS: None. IMPRESSION: Right-sided dialysis catheter extends expected location of the right atrium. Cardiomegaly. Moderate pulmonary venous congestion.
[2017-07-04 18:10] VITALS: O2SAT 99
[2017-07-04 22:12] VITALS: BP 153/83; PULSE 78; TEMP 98
--- NOTE | 2017-07-05 19:12 | CARD ---
APPROVED REPORT EKG Measurement Heart [id number] [place] [id number] <Conclusion> Normal sinus rhythm Marked ST abnormality, possible inferolateral subendocardial injury Prolonged QT Abnormal ECG
== END 2017-07-04 22:14 | disposition home or self-care (01) ==
LOC: C.ER 16:07
DX: R07.89 Other chest pain (principal); I48.91 Unspecified atrial fibrillation; E78.00 Pure hypercholesterolemia, unspecified; I12.0 Hypertensive chronic kidney disease with stage 5 chronic kidney disease or end stage renal disease; N18.6 End stage renal disease; Z99.2 Dependence on renal dialysis

== ENCOUNTER 2017-07-30 09:37 | Inpatient (IN) | payer OTHER ==
[2017-07-30 09:37] VITALS: PULSE 66; BMI 18.8
--- NOTE | 2017-07-30 10:26 | RAD ---
PROCEDURE: CHEST RADIOGRAPH, 1 VIEW HISTORY: chest pain COMPARISON: Chest radiograph dated 07/04/2017. FINDINGS: LUNGS: Pulmonary vascular congestion/edema. PLEURA: Small bilateral pleural effusions suspected. No pneumothorax. CARDIOVASCULAR: Prior sternotomy with sternal wires and surgical clips redemonstrated. Cardiomediastinal silhouette stably enlarged. OSSEOUS STRUCTURES: Unchanged. VISUALIZED UPPER ABDOMEN: Normal. OTHER FINDINGS: Right internal jugular access tunneled hemodialysis catheter redemonstrated. IMPRESSION: Pulmonary vascular congestion with probable small bilateral pleural effusion.
[2017-07-30 10:38] LABS: INR 1.1
[2017-07-30 11:14] LABS: BASO % 0.5 % (0.0-2.0); EOS # 0.3 K/uL (0.0-0.7); EOS % 2.9 % (0.0-4.0); HEMATOCRIT 32.7 % (35.0-51.0); LYMPH # 1.3 K/uL (1.0-4.3); MEAN CELL VOLUME 89.5 fL (80.0-94.0); MEAN CORPUSCULAR HEMOGLOBIN 28.5 pg (27.0-31.0); MEAN CORPUSCULAR HGB CONC 31.8 g/dL (33.0-37.0); MEAN PLATELET VOLUME 9.3 fL (7.2-11.7); MONO # 0.5 K/uL (0.0-0.8); MONO % 5.6 % (0.0-10.0); NRBC % 0.2 % (0.0-2.0); RED CELL DISTRIBUTION WIDTH 21.2 % (11.5-14.5); WHITE BLOOD COUNT 9.5 K/uL (4.8-10.8)
[2017-07-30 11:30] LABS: ALB/GLOB RATIO 1.3 (1.0-2.1); BILIRUBIN,TOTAL 1.1 mg/dL (0.2-1.3); CALCIUM 7.1 mg/dl (8.6-10.4); POTASSIUM 6.1 mmol/L (3.6-5.2); TOTAL PROTEIN 6.2 g/dL (6.3-8.3)
--- NOTE | 2017-07-30 11:37 | C.PDOC ---
History Of Present Illness 37 y/o male, with PMHx of heart disease, 2 stents, ESRD on hemodialysis (Tues, Thrus, Sat), presents to ED for evaluation of onset of chest pain associated with shortness of breath upon waking up this morning. Notes that pain radiates to his right arm. Note, pt had taken Aspirin before EMS arrival. Nitroglycerin SL x3 was given in field with improvement of pain. Denies nausea, vomiting, diaphoresis, or fever. Time Seen by Provider: 07/30/17 09:44 Chief Complaint (Nursing): Chest Pain History Per: Patient History/Exam Limitations: no limitations Onset/Duration Of Symptoms: Days Current Symptoms Are (Timing): Still Present Quality: "Pain" Associated Symptoms: denies: Nausea, Diaphoresis, Syncope Modifying Factors: None Exacerbating Factors: None Nitro Therapy Administered: 3, Per EMS, Partial Relief Recent travel outside of the [place]: No Additional History Per: Patient Past Medical History Reviewed: Historical Data, Nursing Documentation, Vital Signs Vital Signs: Last Vital Signs Temp 98.2 F 08/03/17 23:25 Pulse 73 08/04/17 04:00 Resp 20 08/03/17 23:25 BP 127/78 08/03/17 23:25 Pulse Ox 100 08/03/17 23:25 - Medical History PMH: Alzheimer's Disease, Anemia, Anxiety, Arthritis, Asthma, Atrial Fibrillation, Bronchitis, CAD, Cardia Arrhythmia, CHF, COPD, CVA, Depression, Diabetes, Deep Vein Thrombosis, Gastritis, Gastrointestinal Ulcer, Gall Bladder Disease, HTN, Hypercholesterolemia, Hypothyroidism, Pneumonia, End Stage Renal Disease, Chronic Kidney Disease, Seizures Denies: Hyperthyroidism, Sexually Transmitted Disease Surgical History: CABG (12/2009), Cholecystectomy (2011), Coronary Stent - [facility] (06/01/17) ABDOMINAL WALL SINOGRAM (12/31/13) C.A.T. SCAN OF ABDOMEN (10/31/13) CENTRAL VENOUS CATHETER PLACEMENT WITH GUIDANCE (02/10/15) CHANGE OTHER DEVICE IN TRUNK SUBCU/FASCIA, SOLE ASSESSOR APPROACH (06/01/17) DILATE R ANT TIB ART W DRUG-ELUT INTRALUM, PERC (08/12/15) DILATION OF LEFT FEMORAL ARTERY, PERCUTANEOUS APPROACH (07/04/16) DILATION OF RIGHT FEMORAL ARTERY, PERCUTANEOUS APPROACH (08/12/15) DILATION OF RIGHT POPLITEAL ARTERY, PERCUTANEOUS APPROACH (08/12/15) DX ULTRASOUND-HEART (01/05/13) ENTERAL INFUSION OF CONCENTRATED NUT. SUBSTANCES (06/28/13) EXCIS DEBRIDE OF WOUND, INFECT, OR BURN (08/03/14) EXCISION OF STOMACH, ENDO, DIAGN (03/03/17) EXTIRPATION OF MATTER FROM L FEM ART, PERC APPROACH (07/04/16) EXTIRPATION OF MATTER FROM R FEM ART, PERC APPROACH (08/12/15) EXTIRPATION OF MATTER FROM R POPL ART, PERC APPROACH (08/12/15) FLUOROSCOPY OF L LOW EXTREM ART USING L OSM CONTRAST (08/12/15) FLUOROSCOPY OF R LOW EXTREM ART USING L OSM CONTRAST (08/12/15) FLUOROSCOPY OF RIGHT JUGULAR VEINS, GUIDANCE (06/01/17) FREE SKIN GRAFT NEC (08/03/14) HEAD SOFT TISS X-RAY NEC (04/15/13) HEMODIALYSIS (04/28/15) INCIS W REM OF FORIEGN BODY OR DEV FROM SKIN & SUBCUT TISSUE (08/08/13) INSERT INFUSION DEV IN R INT JUGULAR VEIN, PERC (06/01/17) INSERTION OF INFUSION DEV INTO R SUBCLAV VEIN, PERC APPROACH (01/19/16) INSERTION OF INFUSION DEV INTO SUP VENA CAVA, PERC APPROACH (05/17/17) INSPECTION OF UPPER INTESTINAL TRACT, ENDO (03/03/17) INTRODUCE OF OTH THROMBOLYTIC INTO PERIPH ART, PERC APPROACH (08/12/15) LAPAROSCOPIC CHOLECYSTECTOMY (09/21/13) LOC EXC LES METATAR/TAR (06/01/14) PACKED CELL TRANSFUSION (06/01/14) PERCUTAN LIVER ASPIRAT (12/31/13) PERFORMANCE OF URINARY FILTRATION, MULTIPLE (05/17/17) PERFORMANCE OF URINARY FILTRATION, SINGLE (12/18/16) SKIN & SUBQ INCISION NEC (10/24/14) TETANUS TOXOID ADMINIST (06/13/14) TRANSFUSE NONAUT RED BLOOD CELLS IN PERIPH VEIN, PERC (04/09/17) ULTRASONOGRAPHY OF RIGHT AND LEFT HEART (04/09/17) ULTRASONOGRAPHY OF SUPERIOR VENA CAVA, GUIDANCE (02/20/17) VENOUS CATHETERIZATION FOR RENAL DIALYSIS (08/08/13) VENOUS CATHETERIZATION NEC (04/30/13) Family History: States: Unknown Family Hx - Social History Hx Tobacco Use: No Hx Alcohol Use: No Hx Substance Use: No - Immunization History Hx Tetanus Toxoid Vaccination: No Hx Influenza Vaccination: Yes Hx Pneumococcal Vaccination: Yes Review Of Systems Except As Marked, All Systems Reviewed And Found Negative. Constitutional: Negative for: Fever, Chills Cardiovascular: Positive for: Chest Pain. Negative for: Palpitations, Light Headedness Respiratory: Positive for: Shortness of Breath. Negative for: Cough Gastrointestinal: Negative for: Nausea, Vomiting Neurological: Negative for: Headache, Dizziness Physical Exam - Physical Exam Appears: Non-toxic, No Acute Distress Skin: Normal Color, Warm, Dry Head: Atraumatic, Normacephalic Eye(s): left: Other (left eye blindness) Oral Mucosa: Moist Neck: Supple Chest: Symmetrical, Other (dialysis catheter in chest wall) Cardiovascular: Rhythm Regular, No Murmur Respiratory: Normal Breath Sounds, No Rales, No Rhonchi, No Wheezing Gastrointestinal/Abdominal: Soft, No Tenderness Extremity: Other (bilateral lower extremities BKA) Neurological/Psych: Oriented x3, Normal Speech ED Course And Treatment - Laboratory Results Result Diagrams: 07/30/17 11:09 07/31/17 20:49 ECG: Interpreted By Me, Viewed By Me ECG Rhythm: Sinus Rhythm, L BBB ECG Interpretation: No Acute Changes Interpretation Of ECG: LVH. T wave inversion in lead I, and AVL Rate From EC (bpm) O2 Sat by Pulse Oximetry: 97 (RA) Pulse Ox Interpretation: Normal Medical Decision Making Medical Decision Making: Blood work, EKG, CXR ordered and reviewed. Patient was given Clonidine. Patient received aspirin Dialysis arranged in ED. I obtained consent for life trainer. Disposition Discussed With : Sybil Li Doctor Will See Patient In The: Hospital Counseled Patient/Family Regarding: Studies Performed, Diagnosis - Disposition Disposition: HOSPITALIZED Disposition Time: 12:55 Condition: FAIR - Clinical Impression Clinical Impression: Chest pain, Acute renal failure on dialysis - Scribe Statement The provider has reviewed the documentation as recorded by the Fabiola Tavera All medical record entries made by the Marlonibe were at my direction and personally dictated by me. I have reviewed the chart and agree that the record accurately reflects my personal performance of the history, physical exam, medical decision making, and the department course for this patient. I have also personally directed, reviewed, and agree with the discharge instructions and disposition.
[2017-07-30 12:39] LABS: TROPONIN I 0.144 ng/mL (0.00-0.120)
[2017-07-30] MEDS: HYDROmorphone 1 mg/ml ISec IVP PRN ×2 (15:40→20:06)
[2017-07-30] MEDS ORDERED: HYDROmorphone 0.5 mg/0.5 ml ISec ONE ×2 (15:44→20:04)
[2017-07-31] MEDS: HYDROmorphone 1 mg/ml ISec IVP PRN ×5 (00:59→22:21)
[2017-07-31] MEDS ORDERED: Multivitamin Vitamin B Complex (Nephro-Vite) Tab PO SCH (08:00)
[2017-07-31] MEDS: (Novolin R) Insulin Human Regular 100 units/ml vial SC SCH ×4 (08:09→21:13)
[2017-07-31] MEDS: Ergocalciferol 50,000 Intl Units Cap PO SCH (08:09)
[2017-07-31] MEDS: Albuterol-Ipratrop 3 mg / 0.5 (3 ml) UD IH SCH ×3 (08:30→19:24)
[2017-07-31] MEDS: Multivitamin Vitamin B Complex (Nephro-Vite) Tab PO SCH (09:14)
[2017-07-31] MEDS: Pantoprazole 40 mg EC Tab PO SCH (09:14)
[2017-07-31] MEDS: Valproic Acid 250 mg/5 ml UD Cup PO SCH ×4 (09:19→22:22)
--- NOTE | 2017-07-31 10:47 | CP.PCM.HP ---
History of Present Illness - History of Present Illness History of Present Illness: [pt came in to er for chest pain retrosternal hi tripoinie Present on Admission - Present on Admission Any Indicators Present on Admission: Yes Review of Systems - Review of Systems Systems not reviewed;Unavailable: Acuity of Condition - Constitutional Constitutional: Fatigue - EENT Eyes: Other Ears: As Per HPI Nose/Mouth/Throat: As Per HPI - Cardiovascular Cardiovascular: Chest Pain at Rest, Chest Pain with Activity, Dyspnea, Pain Radiating to Arm/Neck/Jaw - Respiratory Respiratory: Dyspnea - Gastrointestinal Gastrointestinal: As Per HPI - Genitourinary Genitourinary: As Per HPI - Reproductive: Male Reproductive:Male: As Per HPI Additional comments: ambiguis genetalia - Integumentary Integumentary: As Per HPI - Neurological Neurological: Numbness - Psychiatric Psychiatric: Depression - Endocrine Endocrine: Cold Intolorance - Hematologic/Lymphatic Hematologic: As Per HPI Past Patient History - Infectious Disease Hx of Infectious Diseases: None - Tetanus Immunizations Tetanus Immunization: >10 years Ago - Past Medical History & Family History Past Medical History?: Yes - Past Social History Smoking Status: Never Smoked - CARDIAC Hx Atrial Fibrillation: Yes Hx Cardia Arrhythmia: Yes Hx Congestive Heart Failure: Yes Hx Hypercholesterolemia: Yes Hx Hypertension: Yes - PULMONARY Hx Asthma: Yes Hx Bronchitis: Yes Hx Chronic Obstructive Pulmonary Disease (COPD): Yes Hx Pneumonia: Yes - NEUROLOGICAL Hx Alzheimer's Disease: Yes Hx Seizures: Yes - HEENT Hx HEENT Problems: Yes Hx Blind: Yes (legally blind) Hx Cataracts: Yes - RENAL Hx Chronic Kidney Disease: Yes Hx Dialysis: Yes Type of Dialysis Access: R chest permacath Date of Last Dialysis Treatment: 07/27/17 - ENDOCRINE/METABOLIC Hx Diabetes Mellitus Type 2: Yes Hx Hyperthyroidism: No Hx Hypothyroidism: Yes - HEMATOLOGICAL/ONCOLOGICAL Hx Anemia: Yes - INTEGUMENTARY Hx Dermatological Problems: No - MUSCULOSKELETAL/RHEUMATOLOGICAL Hx Arthritis: Yes Hx Falls: No - GASTROINTESTINAL Hx Gall Bladder Disease: Yes Hx Gastritis: Yes - GENITOURINARY/GYNECOLOGICAL Hx Sexually Transmitted Disorders: No - PSYCHIATRIC Hx Substance Use: No - SURGICAL HISTORY Hx Cholecystectomy: Yes (2011) 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/2009) Hx Coronary Stent: Yes - ANESTHESIA Hx Anesthesia: Yes Hx Anesthesia Reactions: No Hx Malignant Hyperthermia: No Meds Allergies/Adverse Reactions: Allergies Allergy/AdvReac Type Severity Reaction Status Date / Time acetaminophen [From Percocet] Allergy RASH Verified 07/30/17 09:49 atenolol Allergy RASH Verified 07/30/17 09:49 digoxin Allergy RASH Verified 07/30/17 09:49 milk Allergy ITCHING Verified 07/30/17 09:49 morphine Allergy RASH Verified 07/30/17 09:49 oxycodone HCl [From Percocet] Allergy RASH Verified 07/30/17 09:49 Physical Exam - Constitutional Appears: Non-toxic - Head Exam Head Exam: ATRAUMATIC - Eye Exam Additional comments: legaly blind - ENT Exam ENT Exam: Normal Exam - Neck Exam Neck exam: Positive for: Full Rom - Respiratory Exam Respiratory Exam: Decreased Breath Sounds - Cardiovascular Exam Cardiovascular Exam: REGULAR RHYTHM, +S1, +S2, +S4 - GI/Abdominal Exam GI & Abdominal Exam: Normal Bowel Sounds - Rectal Exam Rectal Exam: Deferred - Extremities Exam Additional comments: s/p blateral amputation - Back Exam Back exam: CVA tenderness (L) - Neurological Exam Neurological exam: Alert, Oriented x3 - Skin Skin Exam: Normal Color Results - Vital Signs Recent Vital Signs: Last Vital Signs Temp 98.5 F 07/31/17 08:37 Pulse 90 07/31/17 08:37 Resp 20 07/31/17 08:37 BP 116/70 07/31/17 08:37 Pulse Ox 94 L 07/31/17 08:37 - Labs Result Diagrams: 07/30/17 11:09 07/30/17 11:09 Labs: Laboratory Results - last 24 hr 07/30/17 07/30/17 07/30/17 11:09 11:09 20:04 WBC 9.5 RBC 3.66 L Hgb 10.4 L Hct 32.7 L MCV 89.5 MCH 28.5 MCHC 31.8 L RDW 21.2 H Plt Count 138 MPV 9.3 Neut % (Auto) 77.0 H Lymph % (Auto) 14.0 L [place]oshone % (Auto) 5.6 Eos % (Auto) 2.9 Baso % (Auto) 0.5 Neut # 7.3 H Lymph # 1.3 Shoshone # 0.5 Eos # 0.3 Baso # 0.0 Sodium 132 Potassium 6.1 H Chloride 96 L Carbon Dioxide 22 Anion Gap 20 BUN 70 H Creatinine 6.4 H Est GFR ( Amer) 12 Est GFR (Non-Af Amer) 10 POC Glucose (mg/dL) 133 H Random Glucose 163 H Calcium 7.1 L Total Bilirubin 1.1 AST 41 ALT 25 Alkaline Phosphatase 140 H Troponin I 0.1440 H* NT-Pro-B Natriuret Pep 98522 H Total Protein 6.2 L Albumin 3.5 Globulin 2.7 Albumin/Globulin Ratio 1.3 07/31/17 06:47 WBC RBC Hgb Hct MCV MCH MCHC RDW Plt Count MPV Neut % (Auto) Lymph % (Auto) [place]oshone % (Auto) Eos % (Auto) Baso % (Auto) Neut # Lymph # Shoshone # Eos # Baso # Sodium Potassium Chloride Carbon Dioxide Anion Gap BUN Creatinine Est GFR ( Amer) Est GFR (Non-Af Amer) POC Glucose (mg/dL) 159 H Random Glucose Calcium Total Bilirubin AST ALT Alkaline Phosphatase Troponin I NT-Pro-B Natriuret Pep Total Protein Albumin Globulin Albumin/Globulin Ratio Assessment & Plan - Assessment and Plan (Free Text) Assessment: ac chest pain cad chf dm ESRF [place]PERK[place] Plan: PER ORDERS - Date & Time Date: 07/31/17 Time: 10:55
--- NOTE | 2017-07-31 14:07 | CP.PCM.CON ---
Past Patient History - Infectious Disease Hx of Infectious Diseases: None - Tetanus Immunizations Tetanus Immunization: >10 years Ago - Past Medical History & Family History Past Medical History?: Yes - Past Social History Smoking Status: Never Smoked - CARDIAC Hx Atrial Fibrillation: Yes Hx Cardia Arrhythmia: Yes Hx Congestive Heart Failure: Yes Hx Hypercholesterolemia: Yes Hx Hypertension: Yes - PULMONARY Hx Asthma: Yes Hx Bronchitis: Yes Hx Chronic Obstructive Pulmonary Disease (COPD): Yes Hx Pneumonia: Yes - NEUROLOGICAL Hx Alzheimer's Disease: Yes Hx Seizures: Yes - HEENT Hx HEENT Problems: Yes Hx Blind: Yes (legally blind) Hx Cataracts: Yes - RENAL Hx Chronic Kidney Disease: Yes Hx Dialysis: Yes Type of Dialysis Access: R chest permacath Date of Last Dialysis Treatment: 07/27/17 - ENDOCRINE/METABOLIC Hx Diabetes Mellitus Type 2: Yes Hx Hyperthyroidism: No Hx Hypothyroidism: Yes - HEMATOLOGICAL/ONCOLOGICAL Hx Anemia: Yes - INTEGUMENTARY Hx Dermatological Problems: No - MUSCULOSKELETAL/RHEUMATOLOGICAL Hx Arthritis: Yes Hx Falls: No - GASTROINTESTINAL Hx Gall Bladder Disease: Yes Hx Gastritis: Yes - GENITOURINARY/GYNECOLOGICAL Hx Sexually Transmitted Disorders: No - PSYCHIATRIC Hx Substance Use: No - SURGICAL HISTORY Hx Cholecystectomy: Yes (2011) 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/2009) Hx Coronary Stent: Yes - ANESTHESIA Hx Anesthesia: Yes Hx Anesthesia Reactions: No Hx Malignant Hyperthermia: No Meds Allergies/Adverse Reactions: Allergies Allergy/AdvReac Type Severity Reaction Status Date / Time acetaminophen [From Percocet] Allergy RASH Verified 07/30/17 09:49 atenolol Allergy RASH Verified 07/30/17 09:49 digoxin Allergy RASH Verified 07/30/17 09:49 milk Allergy ITCHING Verified 07/30/17 09:49 morphine Allergy RASH Verified 07/30/17 09:49 oxycodone HCl [From Percocet] Allergy RASH Verified 07/30/17 09:49 - Medications Medications: Current Medications Albuterol/Ipratropium (Duoneb 3 Mg/0.5 Mg (3 Ml) Ud) 3 ml IH RQ4 [facility] Last Admin: 07/31/17 13:42 Dose: Not Given Amlodipine Besylate (Norvasc) 10 mg PO DAILY [facility] Last Admin: 07/31/17 09:14 Dose: 10 mg Aspirin (Aspirin Chewable) 81 mg PO DAILY [facility] Last Admin: 07/31/17 09:14 Dose: 81 mg Calcitriol (Rocaltrol) 0.25 mcg PO TTS [facility] Calcium Carbonate (Oscal) 500 mg PO BID [facility] Last Admin: 07/31/17 09:14 Dose: 500 mg Carvedilol (Coreg) 6.25 mg PO Q12 [facility] Last Admin: 07/31/17 09:14 Dose: 6.25 mg Clonidine HCl (Catapres) 0.2 mg PO TID [facility] Last Admin: 07/31/17 09:14 Dose: 0.2 mg Epoetin Tom (Procrit) 4,000 unit IV TTS [facility] Ergocalciferol (Drisdol 50,000 Intl Units Cap) 1 cap PO Q7D [facility] Last Admin: 07/31/17 08:09 Dose: 1 cap Heparin Sodium (Porcine) (Heparin) 5,000 units SC Q12 [facility] Last Admin: 07/31/17 09:14 Dose: 5,000 units Hydromorphone HCl (Dilaudid) 1 mg IVP Q4H PRN PRN Reason: Pain, moderate (4-7) Last Admin: 07/31/17 10:53 Dose: 1 mg Hydromorphone HCl (Dilaudid) 2 mg PO Q6H PRN PRN Reason: Pain, severe (8-10) Insulin Detemir (Levemir) 10 unit SC HS [facility] Insulin Human Regular (Novolin R) 0 unit SC ACHS [facility] PRN Reason: Protocol Last Admin: 07/31/17 12:00 Dose: Not Given Isosorbide Mononitrate (Imdur) 60 mg PO DAILY [facility] Last Admin: 07/31/17 09:14 Dose: 60 mg Lactulose (Enulose) 20 gm PO DAILY [facility] Last Admin: 07/31/17 09:14 Dose: 20 gm Levetiracetam (Keppra) 500 mg PO BID [facility] Last Admin: 07/31/17 09:14 Dose: 500 mg Montelukast Sodium (Singulair) 10 mg PO DAILY [facility] Last Admin: 07/31/17 09:14 Dose: 10 mg Pantoprazole Sodium (Protonix Ec Tab) 40 mg PO DAILY [facility] Last Admin: 07/31/17 09:14 Dose: 40 mg Rosuvastatin Calcium (Crestor) 10 mg PO [facility] Sertraline HCl (Zoloft) 50 mg PO DAILY [facility] Last Admin: 07/31/17 09:14 Dose: 50 mg Sevelamer Carbonate (Renvela) 800 mg PO TIDCC [facility] Last Admin: 07/31/17 13:00 Dose: 800 mg Valproate Sodium (Depakene Oral Soln) 250 mg PO QID [facility] Last Admin: 07/31/17 09:19 Dose: 250 mg Vitamin B Complex/Vit C/Folic Acid (Nephro-Courtney) 1 tab PO DAILY [facility] Last Admin: 07/31/17 09:14 Dose: 1 tab Results - Vital Signs Recent Vital Signs: Last Vital Signs Temp 98.5 F 07/31/17 08:37 Pulse 90 07/31/17 08:37 Resp 20 07/31/17 08:37 BP 116/70 07/31/17 08:37 Pulse Ox 94 L 07/31/17 08:37 - Labs Result Diagrams: 07/30/17 11:09 07/30/17 11:09 Labs: Laboratory Results - last 24 hr 07/30/17 07/31/17 07/31/17 20:04 06:47 11:26 POC Glucose (mg/dL) 133 H 159 H 58 L 07/31/17 11:51 POC Glucose (mg/dL) 70 Assessment & Plan - Assessment and Plan (Free Text) Assessment: 37 year old transgender male to female with atypical chest pain due to med non compliance now improved, continue ranexa, Imdur and coreg Minimal troponin is chronic and stable, due to non revascularizable CAD and ESRD follow trend but treat with dual antiplatelet and high dose statin, surgical options are very limited DM brittle poorly controlled HTN is chronic and stable ESRD on HD PVD s/p bilateral BKA Coronary artery disease s/p CABG and multple PCI all grafts are closed If remains asymptomatic on optimized anti anginal therapy can be safely d/c home.
--- NOTE | 2017-07-31 14:40 | CP.PCM.CON ---
History of Present Illness - History of Present Illness History of Present Illness: Initial Nephrology Consultation: Assessment: Stable Pulmonay edema with htn emergency, Hyperkalemia Diabetic chronic Kidney Disease (E11.22) Hypertensive Chronic Kidney Disease (I12.0) End stage renal disease (N18.6) dependence on hemodialysis (Z99.2) (TTS) via AVF Anemia (D64.9), Hyperphosphatemia (E83.39), Secondary Hyperparathyroidism (E21.1 ), HTN (I12.0) CAD s/p CABG, diastolic CHF, pA flutter/fib, intra-cardiac thrombus, Heparin induced thrombocytopenia, hx of seizure, blindness Plan: had HD yesterday. No acute need today Will plan for routine dialysis tomorrow. Continue with Nephrovite 1 tab/day. PRBC as needed for anemia. On HANNAH as epogen Continue with phos binders home dose Continue with calcitriol BP control with meds as ordered. Patient not on RAAS skyler , may add if BP stays high Glycemic control, Dialysis consistent diet Further work up/management as per primary team Dose meds/antibiotics (if needed) for ESRD status. Avoid fleets enema/magnesium based laxatives. avoid heparin. Thanks for allowing me to participate in care of your patient. Will follow patient with you. Please call if any Qs Dr Eric Temple Office: [phone] Chief Complaint; SOB and chest pain HPI: Pt is a 36 y/o transgender M with hx of ESRD on hemodialysis (TTS) via permacath, chronic anemia, hyperphosphatemia, secondary hyperparathyroidism, Diabetes Mellitus, hypertension, CAD s/p CABG, diastolic CHF, pA flutter/fib, intra-cardiac thrombus, Heparin indueced thrombocytopenia presented with complaints of chest pain and SOB for last 1 week improved chest pain, denies palpitation, c/o shortness of breath ROS: Constitutional Symptoms: Denies fever. No chills. No Recent Weight Changes Eyes: denies change in vision, denies watery eyes, denies double vision Ears/Nose/Mouth/Throat: Denies Abnormal Taste. No Bad breath or Bad Taste. Cardiovascular: improved chest pain. There is c/o shortness of breath. No palpitations. Pulmonary: c/o shortness of breath no cough. Gastrointestinal: denies abdominal pain No nausea. No vomiting. Denies change in bowel habits. Denies Bleeding Genitourinary: makes small urine. No associated pain or blood. Neurological: Denies headaches. No dizziness. Denies loss of balance. Denies weakness, denies tingling/numbness Dermatological: No Rash or Bruising or ulcers. Psychiatric: Denies Anxiety. No depression. Denies hallucinations. Rheumatological: No joint pain. Denies Joint swelling. has b/l BKA Endocrine: Denies over tiredness. Denies Fatigue and denies Heat/Cold Intolerance. All other negative. Physical Examination: General Appearance: Comfortable, in no acute respiratory distress, co-operative . Vitals reviewed and noted as below Head; Atraumatic, normocephalic ENT: no ulcers no thrush. Tongue is midline. Oropharynx: no rash or ulcers. EYES: Pt is blind both eyes Neck; supple no lymphadenopathy, no thyromegaly or bruit Lungs: Normal respiratory rate/effort. Breath sounds bilateral equal clear Heart: Normal rate. s1s2 normal. No rub or gallop. Extremities: no edema. No varicose veins. has b/l BKA Neurological: Patient is alert, awake and oriented to person, place and time. No focal deficit. Strength bilateral appropriate and equal Skin: Warm and dry. Normal turgor. No rash. Palpitation: Normal elasticity for age Abdomen: Abdomen is soft. Bowel sounds +. There is no abdominal tenderness, no guarding/rigidity or organomegaly Psych: normal insight and normal affect/mood MSK: no joint tenderness or swelling. Digits and nails normal, no deformity : kidney or bladder not palpable Access: permacath Labs/imaging reviewed. Past medical history, past surgical history, family history, social history, allergy reviewed and noted as below Family Hx: no hx of CKD. Non contributory Past Patient History - Infectious Disease Hx of Infectious Diseases: None - Tetanus Immunizations Tetanus Immunization: >10 years Ago - Past Medical History & Family History Past Medical History?: Yes - Past Social History Smoking Status: Never Smoked - CARDIAC Hx Atrial Fibrillation: Yes Hx Cardia Arrhythmia: Yes Hx Congestive Heart Failure: Yes Hx Hypercholesterolemia: Yes Hx Hypertension: Yes - PULMONARY Hx Asthma: Yes Hx Bronchitis: Yes Hx Chronic Obstructive Pulmonary Disease (COPD): Yes Hx Pneumonia: Yes - NEUROLOGICAL Hx Alzheimer's Disease: Yes Hx Seizures: Yes - HEENT Hx HEENT Problems: Yes Hx Blind: Yes (legally blind) Hx Cataracts: Yes - RENAL Hx Chronic Kidney Disease: Yes Hx Dialysis: Yes Type of Dialysis Access: R chest permacath Date of Last Dialysis Treatment: 07/27/17 - ENDOCRINE/METABOLIC Hx Diabetes Mellitus Type 2: Yes Hx Hyperthyroidism: No Hx Hypothyroidism: Yes - HEMATOLOGICAL/ONCOLOGICAL Hx Anemia: Yes - INTEGUMENTARY Hx Dermatological Problems: No - MUSCULOSKELETAL/RHEUMATOLOGICAL Hx Arthritis: Yes Hx Falls: No - GASTROINTESTINAL Hx Gall Bladder Disease: Yes Hx Gastritis: Yes - GENITOURINARY/GYNECOLOGICAL Hx Sexually Transmitted Disorders: No - PSYCHIATRIC Hx Substance Use: No - SURGICAL HISTORY Hx Cholecystectomy: Yes (2011) 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/2009) Hx Coronary Stent: Yes - ANESTHESIA Hx Anesthesia: Yes Hx Anesthesia Reactions: No Hx Malignant Hyperthermia: No Meds Allergies/Adverse Reactions: Allergies Allergy/AdvReac Type Severity Reaction Status Date / Time acetaminophen [From Percocet] Allergy RASH Verified 07/30/17 09:49 atenolol Allergy RASH Verified 07/30/17 09:49 digoxin Allergy RASH Verified 07/30/17 09:49 milk Allergy ITCHING Verified 07/30/17 09:49 morphine Allergy RASH Verified 07/30/17 09:49 oxycodone HCl [From Percocet] Allergy RASH Verified 07/30/17 09:49 - Medications Medications: Current Medications Albuterol/Ipratropium (Duoneb 3 Mg/0.5 Mg (3 Ml) Ud) 3 ml IH RQ4 [facility] Last Admin: 07/31/17 13:42 Dose: Not Given Amlodipine Besylate (Norvasc) 10 mg PO DAILY [facility] Last Admin: 07/31/17 09:14 Dose: 10 mg Aspirin (Aspirin Chewable) 81 mg PO DAILY [facility] Last Admin: 07/31/17 09:14 Dose: 81 mg Calcitriol (Rocaltrol) 0.25 mcg PO TTS [facility] Calcium Carbonate (Oscal) 500 mg PO BID [facility] Last Admin: 07/31/17 09:14 Dose: 500 mg Carvedilol (Coreg) 6.25 mg PO Q12 [facility] Last Admin: 07/31/17 09:14 Dose: 6.25 mg Clonidine HCl (Catapres) 0.2 mg PO TID [facility] Last Admin: 07/31/17 09:14 Dose: 0.2 mg Epoetin Tom (Procrit) 4,000 unit IV TTS [facility] Ergocalciferol (Drisdol 50,000 Intl Units Cap) 1 cap PO Q7D [facility] Last Admin: 07/31/17 08:09 Dose: 1 cap Heparin Sodium (Porcine) (Heparin) 5,000 units SC Q12 [facility] Last Admin: 07/31/17 09:14 Dose: 5,000 units Hydromorphone HCl (Dilaudid) 1 mg IVP Q4H PRN PRN Reason: Pain, moderate (4-7) Last Admin: 07/31/17 10:53 Dose: 1 mg Hydromorphone HCl (Dilaudid) 2 mg PO Q6H PRN PRN Reason: Pain, severe (8-10) Insulin Detemir (Levemir) 10 unit SC HS [facility] Insulin Human Regular (Novolin R) 0 unit SC ACHS [facility] PRN Reason: Protocol Last Admin: 07/31/17 12:00 Dose: Not Given Isosorbide Mononitrate (Imdur) 60 mg PO DAILY [facility] Last Admin: 07/31/17 09:14 Dose: 60 mg Lactulose (Enulose) 20 gm PO DAILY [facility] Last Admin: 07/31/17 09:14 Dose: 20 gm Levetiracetam (Keppra) 500 mg PO BID [facility] Last Admin: 07/31/17 09:14 Dose: 500 mg Montelukast Sodium (Singulair) 10 mg PO DAILY [facility] Last Admin: 07/31/17 09:14 Dose: 10 mg Pantoprazole Sodium (Protonix Ec Tab) 40 mg PO DAILY [facility] Last Admin: 07/31/17 09:14 Dose: 40 mg Rosuvastatin Calcium (Crestor) 10 mg PO HS [facility] Sertraline HCl (Zoloft) 50 mg PO DAILY [facility] Last Admin: 07/31/17 09:14 Dose: 50 mg Sevelamer Carbonate (Renvela) 800 mg PO TIDCC [facility] Last Admin: 07/31/17 13:00 Dose: 800 mg Valproate Sodium (Depakene Oral Soln) 250 mg PO QID [facility] Last Admin: 07/31/17 09:19 Dose: 250 mg Vitamin B Complex/Vit C/Folic Acid (Nephro-Courtney) 1 tab PO DAILY [facility] Last Admin: 07/31/17 09:14 Dose: 1 tab Results - Vital Signs Recent Vital Signs: Last Vital Signs Temp 98.5 F 07/31/17 08:37 Pulse 90 07/31/17 08:37 Resp 20 07/31/17 08:37 BP 116/70 07/31/17 08:37 Pulse Ox 94 L 07/31/17 08:37 - Labs Result Diagrams: 07/30/17 11:09 07/30/17 11:09 Labs: Laboratory Results - last 24 hr 07/30/17 07/31/17 07/31/17 20:04 06:47 11:26 POC Glucose (mg/dL) 133 H 159 H 58 L 07/31/17 11:51 POC Glucose (mg/dL) 70
--- NOTE | 2017-07-31 16:01 | CP.PCM.PN ---
Subjective - Date & Time of Evaluation Date of Evaluation: 07/31/17 Time of Evaluation: 16:00 - Subjective Subjective: PT SEEN AND EVAL'D BY DR. BELL. REQUESTED THAT FLOOR DIRECTOR ORDER STONE PANEL AND EKG X3----FIRST SET DONE IN ED. ORDERED SECOND FOR 1700 TODAY AND THIRD TO BE DONE AT 0100. NO FURTHER ORDERS. Objective - Vital Signs/Intake and Output Vital Signs (last 24 hours): Temp Pulse Resp BP Pulse Ox 97.7 F 69 20 106/71 100 07/31/17 15:54 07/31/17 15:54 07/31/17 15:54 07/31/17 15:54 07/31/17 15:54 - Medications Medications: Current Medications Albuterol/Ipratropium (Duoneb 3 Mg/0.5 Mg (3 Ml) Ud) 3 ml IH RQ4 [facility] Last Admin: 07/31/17 13:42 Dose: Not Given Amlodipine Besylate (Norvasc) 10 mg PO DAILY [facility] Last Admin: 07/31/17 09:14 Dose: 10 mg Aspirin (Aspirin Chewable) 81 mg PO DAILY [facility] Last Admin: 07/31/17 09:14 Dose: 81 mg Calcitriol (Rocaltrol) 0.25 mcg PO TTS [facility] Calcium Carbonate (Oscal) 500 mg PO BID [facility] Last Admin: 07/31/17 09:14 Dose: 500 mg Carvedilol (Coreg) 6.25 mg PO Q12 [facility] Last Admin: 07/31/17 09:14 Dose: 6.25 mg Clonidine HCl (Catapres) 0.2 mg PO TID [facility] Last Admin: 07/31/17 14:38 Dose: 0.2 mg Epoetin Tom (Procrit) 4,000 unit IV TTS [facility] Ergocalciferol (Drisdol 50,000 Intl Units Cap) 1 cap PO Q7D [facility] Last Admin: 07/31/17 08:09 Dose: 1 cap Heparin Sodium (Porcine) (Heparin) 5,000 units SC Q12 [facility] Last Admin: 07/31/17 09:14 Dose: 5,000 units Hydromorphone HCl (Dilaudid) 1 mg IVP Q4H PRN PRN Reason: Pain, moderate (4-7) Last Admin: 07/31/17 10:53 Dose: 1 mg Hydromorphone HCl (Dilaudid) 2 mg PO Q6H PRN PRN Reason: Pain, severe (8-10) Insulin Detemir (Levemir) 10 unit SC [facility] Insulin Human Regular (Novolin R) 0 unit SC [facility] PRN Reason: Protocol Last Admin: 07/31/17 12:00 Dose: Not Given Isosorbide Mononitrate (Imdur) 60 mg PO DAILY [facility] Last Admin: 07/31/17 09:14 Dose: 60 mg Lactulose (Enulose) 20 gm PO DAILY [facility] Last Admin: 07/31/17 09:14 Dose: 20 gm Levetiracetam (Keppra) 500 mg PO BID [facility] Last Admin: 07/31/17 09:14 Dose: 500 mg Montelukast Sodium (Singulair) 10 mg PO DAILY [facility] Last Admin: 07/31/17 09:14 Dose: 10 mg Pantoprazole Sodium (Protonix Ec Tab) 40 mg PO DAILY [facility] Last Admin: 07/31/17 09:14 Dose: 40 mg Rosuvastatin Calcium (Crestor) 10 mg PO [facility] Sertraline HCl (Zoloft) 50 mg PO DAILY [facility] Last Admin: 07/31/17 09:14 Dose: 50 mg Sevelamer Carbonate (Renvela) 800 mg PO TIDCC [facility] Last Admin: 07/31/17 13:00 Dose: 800 mg Valproate Sodium (Depakene Oral Soln) 250 mg PO QID [facility] Last Admin: 07/31/17 14:38 Dose: 250 mg Vitamin B Complex/Vit C/Folic Acid (Nephro-Courtney) 1 tab PO DAILY [facility] Last Admin: 07/31/17 09:14 Dose: 1 tab - Labs Labs: 07/30/17 11:09 07/30/17 11:09 PT 12.4 SECONDS (9.7-12.2) H 07/30/17 10:27 INR 1.1 07/30/17 10:27 APTT 29 SECONDS (21-34) 07/30/17 10:27
[2017-07-31 17:52] LABS: TROPONIN I 4.47 ng/mL (0.00-0.120)
[2017-07-31 21:28] LABS: ALB/GLOB RATIO 1.2 (1.0-2.1); BILIRUBIN,TOTAL 0.7 mg/dL (0.2-1.3); CALCIUM 7.9 mg/dl (8.6-10.4); POTASSIUM 4.8 mmol/L (3.6-5.2); TROPONIN I 4.73 ng/mL (0.00-0.120)
[2017-07-31 21:47] LABS: MAGNESIUM 1.8 mg/dL (1.6-2.3); PHOSPHOROUS 6.2 mg/dL (2.5-4.5)
[2017-07-31] MEDS: Insulin Detemir 100 units/ml Vial (Levemir) SC SCH (22:22)
[2017-08-01] MEDS: Albuterol-Ipratrop 3 mg / 0.5 (3 ml) UD IH SCH ×5 (01:35→16:20)
[2017-08-01 02:20] LABS: TROPONIN I 3.86 ng/mL (0.00-0.120)
[2017-08-01] MEDS ORDERED: Metoprolol 1 mg/ml Inj IVP ONE (02:20)
--- NOTE | 2017-08-01 03:03 | CP.PCM.PN ---
<BreonnaMarleny Ernestina - Last Filed: 08/01/17 02:57> Subjective - Date & Time of Evaluation Date of Evaluation: 08/01/17 Time of Evaluation: 01:45 - Subjective Subjective: House Doctor paged for abnormal EKG EKG showed sinus tachy at [address] Valle and I evaluated EKG and patient. As per Dr. Valle EKG looked more like atrial flutter. Cardizem 5mg ivp was given which brought HR down to 96bpm. Metoprolol 2.5mg ivp given which brought HR down to 70bpm. New EKG obtained which showed atrial flutter with 4:1 AV conduction. Troponin values: .1440 (07/30), 4.47 (07/31 at 16:48), 4.73 (07/31 at 20:49), 3.86 (08/01 at 1:40). Dr. Escobar made aware of the ekgs, medications given, and troponin values. As per Dr. Escobar no heparin at this time due to hx of GI bleed. Patient will be monitored closely. Objective - Vital Signs/Intake and Output Vital Signs (last 24 hours): Temp Pulse Resp BP Pulse Ox 97.3 F L 101 H 20 114/82 99 08/01/17 00:00 08/01/17 00:00 08/01/17 00:00 08/01/17 00:00 08/01/17 00:00 Intake and Output: 07/31/17 08/01/17 18:59 06:59 Intake Total 300 Balance 300 - Medications Medications: Current Medications Albuterol/Ipratropium (Duoneb 3 Mg/0.5 Mg (3 Ml) Ud) 3 ml IH RQ4 [facility] Last Admin: 08/01/17 01:35 Dose: Not Given Amlodipine Besylate (Norvasc) 10 mg PO DAILY [facility] Last Admin: 07/31/17 09:14 Dose: 10 mg Aspirin (Aspirin Chewable) 81 mg PO DAILY [facility] Last Admin: 07/31/17 09:14 Dose: 81 mg Calcitriol (Rocaltrol) 0.25 mcg PO TTS [facility] Calcium Carbonate (Oscal) 500 mg PO BID [facility] Last Admin: 07/31/17 17:23 Dose: 500 mg Carvedilol (Coreg) 6.25 mg PO Q12 [facility] Last Admin: 07/31/17 22:21 Dose: 6.25 mg Clonidine HCl (Catapres) 0.2 mg PO TID [facility] Last Admin: 07/31/17 17:23 Dose: 0.2 mg Epoetin Tom (Procrit) 4,000 unit IV TTS [facility] Ergocalciferol (Drisdol 50,000 Intl Units Cap) 1 cap PO Q7D [facility] Last Admin: 07/31/17 08:09 Dose: 1 cap Heparin Sodium (Porcine) (Heparin) 5,000 units SC Q12 [facility] Last Admin: 07/31/17 22:22 Dose: 5,000 units Hydromorphone HCl (Dilaudid) 1 mg IVP Q4H PRN PRN Reason: Pain, moderate (4-7) Last Admin: 07/31/17 22:21 Dose: 1 mg Hydromorphone HCl (Dilaudid) 2 mg PO Q6H PRN PRN Reason: Pain, severe (8-10) Last Admin: 08/01/17 01:00 Dose: 2 mg Insulin Detemir (Levemir) 10 unit SC [facility] Last Admin: 07/31/17 22:22 Dose: 10 unit Insulin Human Regular (Novolin R) 0 unit SC [facility] PRN Reason: Protocol Last Admin: 07/31/17 21:13 Dose: Not Given Isosorbide Mononitrate (Imdur) 60 mg PO DAILY [facility] Last Admin: 07/31/17 09:14 Dose: 60 mg Lactulose (Enulose) 20 gm PO DAILY [facility] Last Admin: 07/31/17 09:14 Dose: 20 gm Levetiracetam (Keppra) 500 mg PO BID [facility] Last Admin: 07/31/17 17:23 Dose: 500 mg Montelukast Sodium (Singulair) 10 mg PO DAILY [facility] Last Admin: 07/31/17 09:14 Dose: 10 mg Pantoprazole Sodium (Protonix Ec Tab) 40 mg PO DAILY [facility] Last Admin: 07/31/17 09:14 Dose: 40 mg Rosuvastatin Calcium (Crestor) 10 mg PO HS [facility] Last Admin: 07/31/17 22:21 Dose: 10 mg Sertraline HCl (Zoloft) 50 mg PO DAILY [facility] Last Admin: 07/31/17 09:14 Dose: 50 mg Sevelamer Carbonate (Renvela) 800 mg PO TIDCC [facility] Last Admin: 07/31/17 17:23 Dose: 800 mg Valproate Sodium (Depakene Oral Soln) 250 mg PO QID [facility] Last Admin: 07/31/17 22:22 Dose: 250 mg Vitamin B Complex/Vit C/Folic Acid (Nephro-Courtney) 1 tab PO DAILY [facility] Last Admin: 07/31/17 09:14 Dose: 1 tab - Labs Labs: 07/30/17 11:09 07/31/17 20:49 PT 12.4 SECONDS (9.7-12.2) H 07/30/17 10:27 INR 1.1 07/30/17 10:27 APTT 29 SECONDS (21-34) 07/30/17 10:27 <Nathan Valle P - Last Filed: 08/03/17 06:58> Objective - Vital Signs/Intake and Output Vital Signs (last 24 hours): Temp Pulse Resp BP Pulse Ox 97.9 F 69 18 122/53 L 99 08/03/17 00:23 08/03/17 00:23 08/03/17 00:23 08/03/17 00:23 08/03/17 00:23 Intake and Output: 08/02/17 08/03/17 18:59 06:59 Intake Total 280 250 Balance 280 250 - Medications Medications: Current Medications Albuterol/Ipratropium (Duoneb 3 Mg/0.5 Mg (3 Ml) Ud) 3 ml IH RQ4 [facility] Last Admin: 08/03/17 04:08 Dose: Not Given Amlodipine Besylate (Norvasc) 5 mg PO DAILY [facility] Aspirin (Aspirin Chewable) 81 mg PO DAILY [facility] Last Admin: 08/02/17 09:12 Dose: 81 mg Calcitriol (Rocaltrol) 0.25 mcg PO TTS [facility] Last Admin: 08/01/17 10:52 Dose: Not Given Calcium Carbonate (Oscal) 500 mg PO BID [facility] Last Admin: 08/02/17 18:50 Dose: 500 mg Carvedilol (Coreg) 6.25 mg PO Q12 [facility] Last Admin: 08/02/17 22:20 Dose: 6.25 mg Clonidine HCl (Catapres Tts1 0.1 Mg/24 Hr) 1 patch TD Q7D@1000 [facility] Epoetin Tom (Procrit) 4,000 unit IV TTS [facility] Last Admin: 08/01/17 10:56 Dose: 4,000 unit Ergocalciferol (Drisdol 50,000 Intl Units Cap) 1 cap PO Q7D [facility] Last Admin: 07/31/17 08:09 Dose: 1 cap Hydromorphone HCl (Dilaudid) 2 mg PO Q6H PRN PRN Reason: Pain, severe (8-10) Last Admin: 08/01/17 01:00 Dose: 2 mg Hydromorphone HCl (Dilaudid) 1 mg IVP Q4H PRN PRN Reason: Pain, moderate (4-7) Last Admin: 08/02/17 23:30 Dose: 1 mg Insulin Detemir (Levemir) 10 unit SC HS [facility] Last Admin: 08/02/17 22:21 Dose: 10 unit Insulin Human Regular (Novolin R) 0 unit SC ACHS [facility] PRN Reason: Protocol Last Admin: 08/02/17 22:16 Dose: Not Given Isosorbide Mononitrate (Imdur) 60 mg PO DAILY [facility] Last Admin: 08/02/17 09:13 Dose: Not Given Lactulose (Enulose) 20 gm PO DAILY [facility] Last Admin: 08/02/17 09:12 Dose: 20 gm Levetiracetam (Keppra) 500 mg PO BID [facility] Last Admin: 08/02/17 18:50 Dose: 500 mg Montelukast Sodium (Singulair) 10 mg PO DAILY [facility] Last Admin: 08/02/17 09:12 Dose: 10 mg Pantoprazole Sodium (Protonix Ec Tab) 40 mg PO DAILY [facility] Last Admin: 08/02/17 09:12 Dose: 40 mg Rosuvastatin Calcium (Crestor) 10 mg PO HS [facility] Last Admin: 08/02/17 22:20 Dose: 10 mg Sertraline HCl (Zoloft) 50 mg PO DAILY [facility] Last Admin: 08/02/17 09:14 Dose: Not Given Sevelamer Carbonate (Renvela) 800 mg PO TIDCC [facility] Last Admin: 08/02/17 17:50 Dose: 800 mg Valproate Sodium (Depakene Oral Soln) 250 mg PO QID [facility] Last Admin: 12/01/17 22:14 Dose: 250 mg Vitamin B Complex/Vit C/Folic Acid (Nephro-Courtney) 1 tab PO DAILY [facility] Last Admin: 08/02/17 09:13 Dose: Not Given - Labs Labs: 07/30/17 11:09 07/31/17 20:49 PT 12.4 SECONDS (9.7-12.2) H 07/30/17 10:27 INR 1.1 07/30/17 10:27 APTT 29 SECONDS (21-34) 07/30/17 10:27 Attending/Attestation - Attestation I have personally seen and examined this patient.: Yes I have fully participated in the care of the patient.: Yes I have reviewed all pertinent clinical information, including history, physical exam and plan: Yes
[2017-08-01] MEDS: HYDROmorphone 1 mg/ml ISec IVP PRN (04:36)
[2017-08-01] MEDS: (Novolin R) Insulin Human Regular 100 units/ml vial SC SCH ×4 (08:00→23:18)
--- NOTE | 2017-08-01 10:46 | CP.PCM.PN ---
Subjective - Date & Time of Evaluation Date of Evaluation: 08/01/17 Time of Evaluation: 10:43 - Subjective Subjective: Currently on HD Patient remains without CP + volume overload on admission (mild) improved with HD Noted the following: Troponin 0.14 > 4 > 3 Early am 07/30/17: Aflutter RVR Rx with cardizem and lopressor Aflutter 4:1 noted Patient continues to remain ASX: No advanced CHF systolic; No anginal type CP; No fevers, chills, N/V/D Objective - Vital Signs/Intake and Output Vital Signs (last 24 hours): Temp Pulse Resp BP Pulse Ox 97.4 F L 59 L 16 111/60 100 08/01/17 09:20 08/01/17 09:20 08/01/17 09:20 08/01/17 09:20 08/01/17 09:20 - Medications Medications: Current Medications Albuterol/Ipratropium (Duoneb 3 Mg/0.5 Mg (3 Ml) Ud) 3 ml IH RQ4 [facility] Last Admin: 08/01/17 07:13 Dose: Not Given Amlodipine Besylate (Norvasc) 10 mg PO DAILY [facility] Last Admin: 07/31/17 09:14 Dose: 10 mg Aspirin (Aspirin Chewable) 81 mg PO DAILY [facility] Last Admin: 07/31/17 09:14 Dose: 81 mg Calcitriol (Rocaltrol) 0.25 mcg PO TTS [facility] Calcium Carbonate (Oscal) 500 mg PO BID [facility] Last Admin: 07/31/17 17:23 Dose: 500 mg Carvedilol (Coreg) 6.25 mg PO Q12 [facility] Last Admin: 07/31/17 22:21 Dose: 6.25 mg Clonidine HCl (Catapres) 0.2 mg PO TID [facility] Last Admin: 07/31/17 17:23 Dose: 0.2 mg Epoetin Tom (Procrit) 4,000 unit IV TTS [facility] Ergocalciferol (Drisdol 50,000 Intl Units Cap) 1 cap PO Q7D [facility] Last Admin: 07/31/17 08:09 Dose: 1 cap Heparin Sodium (Porcine) (Heparin) 5,000 units SC Q12 [facility] Last Admin: 07/31/17 22:22 Dose: 5,000 units Hydromorphone HCl (Dilaudid) 1 mg IVP Q4H PRN PRN Reason: Pain, moderate (4-7) Last Admin: 08/01/17 04:36 Dose: 1 mg Hydromorphone HCl (Dilaudid) 2 mg PO Q6H PRN PRN Reason: Pain, severe (8-10) Last Admin: 08/01/17 01:00 Dose: 2 mg Insulin Detemir (Levemir) 10 unit SC HS [facility] Last Admin: 07/31/17 22:22 Dose: 10 unit Insulin Human Regular (Novolin R) 0 unit SC ACHS [facility] PRN Reason: Protocol Last Admin: 08/01/17 08:00 Dose: 3 unit Isosorbide Mononitrate (Imdur) 60 mg PO DAILY [facility] Last Admin: 07/31/17 09:14 Dose: 60 mg Lactulose (Enulose) 20 gm PO DAILY [facility] Last Admin: 07/31/17 09:14 Dose: 20 gm Levetiracetam (Keppra) 500 mg PO BID [facility] Last Admin: 07/31/17 17:23 Dose: 500 mg Montelukast Sodium (Singulair) 10 mg PO DAILY [facility] Last Admin: 07/31/17 09:14 Dose: 10 mg Pantoprazole Sodium (Protonix Ec Tab) 40 mg PO DAILY [facility] Last Admin: 07/31/17 09:14 Dose: 40 mg Rosuvastatin Calcium (Crestor) 10 mg PO HS [facility] Last Admin: 07/31/17 22:21 Dose: 10 mg Sertraline HCl (Zoloft) 50 mg PO DAILY [facility] Last Admin: 07/31/17 09:14 Dose: 50 mg Sevelamer Carbonate (Renvela) 800 mg PO TIDCC [facility] Last Admin: 08/01/17 08:31 Dose: 800 mg Valproate Sodium (Depakene Oral Soln) 250 mg PO QID [facility] Last Admin: 07/31/17 22:22 Dose: 250 mg Vitamin B Complex/Vit C/Folic Acid (Nephro-Courtney) 1 tab PO DAILY [facility] Last Admin: 07/31/17 09:14 Dose: 1 tab - Labs Labs: 07/30/17 11:09 07/31/17 20:49 PT 12.4 SECONDS (9.7-12.2) H 07/30/17 10:27 INR 1.1 07/30/17 10:27 APTT 29 SECONDS (21-34) 07/30/17 10:27 - Constitutional Appears: No Acute Distress - Head Exam Head Exam: ATRAUMATIC, NORMAL INSPECTION, NORMOCEPHALIC - Eye Exam Eye Exam: absent: Normal appearance (legally blind) - Cardiovascular Exam Cardiovascular Exam: REGULAR RHYTHM, +S1, +S2, Murmur (chronic known Pulmonary stenosis moderate) - Extremities Exam Extremities Exam: absent: Normal Inspection (B/L BKA) - Neurological Exam Neurological Exam: Alert, Awake, Oriented x3 Neuro motor strength exam: Left Upper Extremity: 5, Right Upper Extremity: 5 - Skin Skin Exam: Warm Assessment and Plan - Assessment and Plan (Free Text) Assessment: 37 y/o with transgender phenotype > DM brittle poorly controlled and hx of non-compliance > HTN is chronic and stable; with hx of non-compliance and sporadic lability > ESRD on HD with hx of non-compliance and missed sessions > PVD s/p bilateral BKA due to recurrent infections and progressive gangrene and non-healing ulcers > Legally blind Coronary artery disease s/p CABG and subsequent PCI all grafts are closed > He remains with preserved LV function and advanced diastolic dysfunction despite diffuse small vessel CAD (too small for PCI) > He is not having any angina or advanced CHF > Medical therapy remains his most important and sole treatment option at this stage. > Continue ASA as tolerated, imdur, coreg, high intensity statin; ranexa and titrate these meds as tolerated to achieve optimal BP and HR control. (<120/80 and HR <65). > current troponin elevation may be due to deman ischemia from diffuse CAD versus NSTEMI versus acute on chronic myonecrosis from microvascular disease and ESRD. * He unfortunately is not a candidate for any surgical or percutaneous therapy. * He has had hx of atrial catheter related thrombus in past ---> he was challenged with AC on many occasionas but due to GI bleed deemed unsafe * he has known documented hx of parx AFLUTTER/FIB Conservative rx and d/c home when stable.
[2017-08-01] MEDS: Valproic Acid 250 mg/5 ml UD Cup PO SCH ×4 (10:49→21:17)
[2017-08-01] MEDS: Multivitamin Vitamin B Complex (Nephro-Vite) Tab PO SCH (10:51)
[2017-08-01] MEDS: Pantoprazole 40 mg EC Tab PO SCH (10:52)
[2017-08-01] MEDS: EPOETIN ALFA 4,000 UNIT/ML ML Dialysis IV SCH (10:56)
--- NOTE | 2017-08-01 14:40 | CP.PCM.PN ---
Subjective - Date & Time of Evaluation Date of Evaluation: 08/01/17 Time of Evaluation: 14:38 - Subjective Subjective: Follow up Nephrology Consultation: Assessment: Stable Pulmonay edema with htn emergency, Hyperkalemia, elevated troponins Diabetic chronic Kidney Disease (E11.22) Hypertensive Chronic Kidney Disease (I12.0) End stage renal disease (N18.6) dependence on hemodialysis (Z99.2) (TTS) via AVF Anemia (D64.9), Hyperphosphatemia (E83.39), Secondary Hyperparathyroidism (E21.1 ), HTN (I12.0) CAD s/p CABG, diastolic CHF, pA flutter/fib, intra-cardiac thrombus, Heparin induced thrombocytopenia, hx of seizure, blindness Plan: routine dialysis today as per TTS schedule. Continue with Nephrovite 1 tab/day. PRBC as needed for anemia. On HANNAH as epogen Continue with phos binders home dose Continue with calcitriol BP control with meds as ordered. Patient not on RAAS skyler , may add if BP stays high. BP labile Glycemic control, Dialysis consistent diet Further work up/management as per primary team Dose meds/antibiotics (if needed) for ESRD status. Avoid fleets enema/magnesium based laxatives. avoid heparin during HD due to hx of HIT. Thanks for allowing me to participate in care of your patient. Will follow patient with you. Please call if any Qs Dr Eric Temple Office: [phone] Chief Complaint; SOB and chest pain HPI: Pt is a 36 y/o transgender M with hx of ESRD on hemodialysis (TTS) via permacath, chronic anemia, hyperphosphatemia, secondary hyperparathyroidism, Diabetes Mellitus, hypertension, CAD s/p CABG, diastolic CHF, pA flutter/fib, intra-cardiac thrombus, Heparin indueced thrombocytopenia presented with complaints of chest pain and SOB for last 1 week improved chest pain, denies palpitation, improved shortness of breath. Physical Examination: General Appearance: Comfortable, in no acute respiratory distress, co-operative . Vitals reviewed and noted as below Head; Atraumatic, normocephalic ENT: no ulcers no thrush. Tongue is midline. Oropharynx: no rash or ulcers. EYES: Pt is blind both eyes Neck; supple no lymphadenopathy, no thyromegaly or bruit Lungs: Normal respiratory rate/effort. Breath sounds bilateral equal clear Heart: Normal rate. s1s2 normal. No rub or gallop. Extremities: no edema. No varicose veins. has b/l BKA Neurological: Patient is alert, awake and oriented to person, place and time. No focal deficit. Strength bilateral appropriate and equal Skin: Warm and dry. Normal turgor. No rash. Palpitation: Normal elasticity for age Abdomen: Abdomen is soft. Bowel sounds +. There is no abdominal tenderness, no guarding/rigidity or organomegaly Psych: normal insight and normal affect/mood MSK: no joint tenderness or swelling. Digits and nails normal, no deformity : kidney or bladder not palpable Access: permacath Labs/imaging reviewed. Past medical history, past surgical history, family history, social history, allergy reviewed and noted as below Family Hx: no hx of CKD. Non contributory Objective - Vital Signs/Intake and Output Vital Signs (last 24 hours): Temp Pulse Resp BP Pulse Ox 97.3 F L 56 L 16 90/56 L 100 08/01/17 12:50 08/01/17 12:50 08/01/17 12:50 08/01/17 12:50 08/01/17 09:20 - Medications Medications: Current Medications Albuterol/Ipratropium (Duoneb 3 Mg/0.5 Mg (3 Ml) Ud) 3 ml IH RQ4 [facility] Last Admin: 08/01/17 11:12 Dose: Not Given Amlodipine Besylate (Norvasc) 10 mg PO DAILY [facility] Last Admin: 08/01/17 10:51 Dose: Not Given Aspirin (Aspirin Chewable) 81 mg PO DAILY [facility] Last Admin: 08/01/17 10:48 Dose: Not Given Calcitriol (Rocaltrol) 0.25 mcg PO TTS [facility] Last Admin: 08/01/17 10:52 Dose: Not Given Calcium Carbonate (Oscal) 500 mg PO BID [facility] Last Admin: 08/01/17 10:52 Dose: Not Given Carvedilol (Coreg) 6.25 mg PO Q12 [facility] Last Admin: 08/01/17 10:49 Dose: Not Given Clonidine HCl (Catapres) 0.2 mg PO TID [facility] Last Admin: 08/01/17 13:55 Dose: 0.2 mg Epoetin Tom (Procrit) 4,000 unit IV TTS [facility] Last Admin: 08/01/17 10:56 Dose: 4,000 unit Ergocalciferol (Drisdol 50,000 Intl Units Cap) 1 cap PO Q7D [facility] Last Admin: 07/31/17 08:09 Dose: 1 cap Heparin Sodium (Porcine) (Heparin) 5,000 units SC Q12 [facility] Last Admin: 08/01/17 10:50 Dose: Not Given Hydromorphone HCl (Dilaudid) 1 mg IVP Q4H PRN PRN Reason: Pain, moderate (4-7) Last Admin: 08/01/17 04:36 Dose: 1 mg Hydromorphone HCl (Dilaudid) 2 mg PO Q6H PRN PRN Reason: Pain, severe (8-10) Last Admin: 08/01/17 01:00 Dose: 2 mg Insulin Detemir (Levemir) 10 unit SC HS [facility] Last Admin: 07/31/17 22:22 Dose: 10 unit Insulin Human Regular (Novolin R) 0 unit SC ACHS [facility] PRN Reason: Protocol Last Admin: 08/01/17 11:51 Dose: Not Given Isosorbide Mononitrate (Imdur) 60 mg PO DAILY [facility] Last Admin: 08/01/17 10:50 Dose: Not Given Lactulose (Enulose) 20 gm PO DAILY [facility] Last Admin: 08/01/17 11:00 Dose: Not Given Levetiracetam (Keppra) 500 mg PO BID [facility] Last Admin: 08/01/17 10:51 Dose: Not Given Montelukast Sodium (Singulair) 10 mg PO DAILY [facility] Last Admin: 08/01/17 10:52 Dose: Not Given Pantoprazole Sodium (Protonix Ec Tab) 40 mg PO DAILY [facility] Last Admin: 08/01/17 10:52 Dose: Not Given Rosuvastatin Calcium (Crestor) 10 mg PO HS [facility] Last Admin: 07/31/17 22:21 Dose: 10 mg Sertraline HCl (Zoloft) 50 mg PO DAILY [facility] Last Admin: 08/01/17 10:53 Dose: Not Given Sevelamer Carbonate (Renvela) 800 mg PO TIDCC [facility] Last Admin: 08/01/17 12:06 Dose: Not Given Valproate Sodium (Depakene Oral Soln) 250 mg PO QID [facility] Last Admin: 08/01/17 13:55 Dose: 250 mg Vitamin B Complex/Vit C/Folic Acid (Nephro-Courtney) 1 tab PO DAILY [facility] Last Admin: 08/01/17 10:51 Dose: Not Given - Labs Labs: 07/30/17 11:09 07/31/17 20:49 PT 12.4 SECONDS (9.7-12.2) H 07/30/17 10:27 INR 1.1 07/30/17 10:27 APTT 29 SECONDS (21-34) 07/30/17 10:27
[2017-08-01] MEDS ORDERED: HYDROmorphone 1 mg/ml ISec IVP PRN (16:00)
[2017-08-01] MEDS ORDERED: HYDROmorphone 0.5 mg/0.5 ml ISec IVP PRN (16:00)
--- NOTE | 2017-08-01 18:15 | CP.PCM.PN ---
Subjective - Date & Time of Evaluation Date of Evaluation: 08/01/17 Time of Evaluation: 18:12 - Subjective Subjective: less chest pain less sob Objective - Vital Signs/Intake and Output Vital Signs (last 24 hours): Temp Pulse Resp BP Pulse Ox 98.4 F 66 20 96/59 L 96 08/01/17 16:03 08/01/17 16:03 08/01/17 16:03 08/01/17 16:03 08/01/17 16:03 Intake and Output: 08/01/17 08/01/17 06:59 18:59 Intake Total 280 Balance 280 - Medications Medications: Current Medications Albuterol/Ipratropium (Duoneb 3 Mg/0.5 Mg (3 Ml) Ud) 3 ml IH RQ4 [facility] Last Admin: 08/01/17 16:20 Dose: 3 ml Amlodipine Besylate (Norvasc) 10 mg PO DAILY [facility] Last Admin: 08/01/17 10:51 Dose: Not Given Aspirin (Aspirin Chewable) 81 mg PO DAILY [facility] Last Admin: 08/01/17 10:48 Dose: Not Given Calcitriol (Rocaltrol) 0.25 mcg PO TTS [facility] Last Admin: 08/01/17 10:52 Dose: Not Given Calcium Carbonate (Oscal) 500 mg PO BID [facility] Last Admin: 08/01/17 10:52 Dose: Not Given Carvedilol (Coreg) 6.25 mg PO Q12 [facility] Last Admin: 08/01/17 10:49 Dose: Not Given Epoetin Tom (Procrit) 4,000 unit IV TTS [facility] Last Admin: 08/01/17 10:56 Dose: 4,000 unit Ergocalciferol (Drisdol 50,000 Intl Units Cap) 1 cap PO Q7D [facility] Last Admin: 07/31/17 08:09 Dose: 1 cap Heparin Sodium (Porcine) (Heparin) 5,000 units SC Q12 [facility] Last Admin: 08/01/17 10:50 Dose: Not Given Hydromorphone HCl (Dilaudid) 2 mg PO Q6H PRN PRN Reason: Pain, severe (8-10) Last Admin: 08/01/17 01:00 Dose: 2 mg Hydromorphone HCl (Dilaudid) 1 mg IVP Q4H PRN PRN Reason: Pain, moderate (4-7) Last Admin: 08/01/17 16:07 Dose: 1 mg Insulin Detemir (Levemir) 10 [address] [facility] Last Admin: 07/31/17 22:22 Dose: 10 unit Insulin Human Regular (Novolin R) 0 unit SC [facility] PRN Reason: Protocol Last Admin: 08/01/17 17:09 Dose: Not Given Isosorbide Mononitrate (Imdur) 60 mg PO DAILY [facility] Last Admin: 08/01/17 10:50 Dose: Not Given Lactulose (Enulose) 20 gm PO DAILY [facility] Last Admin: 08/01/17 11:00 Dose: Not Given Levetiracetam (Keppra) 500 mg PO BID [facility] Last Admin: 08/01/17 10:51 Dose: Not Given Montelukast Sodium (Singulair) 10 mg PO DAILY [facility] Last Admin: 08/01/17 10:52 Dose: Not Given Pantoprazole Sodium (Protonix Ec Tab) 40 mg PO DAILY [facility] Last Admin: 08/01/17 10:52 Dose: Not Given Rosuvastatin Calcium (Crestor) [address] [facility] Last Admin: 07/31/17 22:21 Dose: 10 mg Sertraline HCl (Zoloft) 50 mg PO DAILY [facility] Last Admin: 08/01/17 10:53 Dose: Not Given Sevelamer Carbonate (Renvela) 800 mg PO TIDCC [facility] Last Admin: 08/01/17 17:42 Dose: 800 mg Valproate Sodium (Depakene Oral Soln) 250 mg PO QID [facility] Last Admin: 08/01/17 13:55 Dose: 250 mg Vitamin B Complex/Vit C/Folic Acid (Nephro-Courtney) 1 tab PO DAILY [facility] Last Admin: 08/01/17 10:51 Dose: Not Given - Labs Labs: 07/30/17 11:09 07/31/17 20:49 PT 12.4 SECONDS (9.7-12.2) H 07/30/17 10:27 INR 1.1 07/30/17 10:27 APTT 29 SECONDS (21-34) 07/30/17 10:27 - Constitutional Appears: Non-toxic - Head Exam Head Exam: NORMAL INSPECTION - ENT Exam ENT Exam: Mucous Membranes Dry - Neck Exam Neck Exam: Full ROM - Respiratory Exam Respiratory Exam: Decreased Breath Sounds - Cardiovascular Exam Cardiovascular Exam: REGULAR RHYTHM Additional comments: triponin still hi - GI/Abdominal Exam GI & Abdominal Exam: Normal Bowel Sounds - Rectal Exam Rectal Exam: NORMAL INSPECTION - Extremities Exam Additional comments: s/p amputation - Back Exam Back Exam: NORMAL INSPECTION - Neurological Exam Neurological Exam: Awake - Psychiatric Exam Psychiatric exam: Normal Affect - Skin Skin Exam: Normal Color, Pallor - Additional Findings Additional findings: bs monitered good Assessment and Plan - Assessment and Plan (Free Text) Assessment: chest pain cad copd chf htn esrf dmid Plan: cont telemetry mediations and lab
[2017-08-01] MEDS: Insulin Detemir 100 units/ml Vial (Levemir) SC SCH (21:10)
--- NOTE | 2017-08-01 21:46 | CARD ---
APPROVED REPORT EKG Measurement Heart [id number] CT 168P33 [id number] <Conclusion> Sinus bradycardia Possible Left atrial enlargement Left ventricular hypertrophy with repolarization abnormality Possible Inferior infarct, age undetermined Abnormal ECG
--- NOTE | 2017-08-01 21:46 | CARD ---
APPROVED REPORT EKG Measurement Heart [id number] CT 168P74 [id number] <Conclusion> Sinus bradycardia with frequent premature ventricular complexes ST & T wave abnormality, consider lateral ischemia Prolonged QT Abnormal ECG
[2017-08-02] MEDS: Albuterol-Ipratrop 3 mg / 0.5 (3 ml) UD IH SCH ×6 (02:09→19:56)
[2017-08-02] MEDS: (Novolin R) Insulin Human Regular 100 units/ml vial SC SCH ×4 (07:46→22:16)
[2017-08-02] MEDS: Pantoprazole 40 mg EC Tab PO SCH (09:12)
[2017-08-02] MEDS: Valproic Acid 250 mg/5 ml UD Cup PO SCH ×4 (09:12→22:14)
[2017-08-02] MEDS: Multivitamin Vitamin B Complex (Nephro-Vite) Tab PO SCH (09:13)
--- NOTE | 2017-08-02 10:53 | CP.PCM.PN ---
Subjective - Date & Time of Evaluation Date of Evaluation: 08/02/17 Time of Evaluation: 10:50 - Subjective Subjective: still has chest pain sob ocasionaly cough the pain pressure radiating to arm triponin is v hi Objective - Vital Signs/Intake and Output Vital Signs (last 24 hours): Temp Pulse Resp BP Pulse Ox 97.9 F 68 18 93/59 L 100 08/02/17 07:20 08/02/17 07:20 08/02/17 07:20 08/02/17 07:20 08/02/17 07:20 - Medications Medications: Current Medications Albuterol/Ipratropium (Duoneb 3 Mg/0.5 Mg (3 Ml) Ud) 3 ml IH RQ4 [facility] Last Admin: 08/02/17 07:11 Dose: Not Given Amlodipine Besylate (Norvasc) 5 mg PO DAILY [facility] Aspirin (Aspirin Chewable) 81 mg PO DAILY [facility] Last Admin: 08/02/17 09:12 Dose: 81 mg Calcitriol (Rocaltrol) 0.25 mcg PO TTS [facility] Last Admin: 08/01/17 10:52 Dose: Not Given Calcium Carbonate (Oscal) 500 mg PO BID [facility] Last Admin: 08/02/17 09:12 Dose: 500 mg Carvedilol (Coreg) 6.25 mg PO Q12 [facility] Last Admin: 08/02/17 09:13 Dose: Not Given Clonidine HCl (Catapres Tts1 0.1 Mg/24 Hr) 1 patch TD Q7D@1000 [facility] Epoetin Tom (Procrit) 4,000 unit IV TTS [facility] Last Admin: 08/01/17 10:56 Dose: 4,000 unit Ergocalciferol (Drisdol 50,000 Intl Units Cap) 1 cap PO Q7D [facility] Last Admin: 07/31/17 08:09 Dose: 1 cap Heparin Sodium (Porcine) (Heparin) 5,000 units SC Q12 [facility] Last Admin: 08/02/17 09:12 Dose: 5,000 units Hydromorphone HCl (Dilaudid) 2 mg PO Q6H PRN PRN Reason: Pain, severe (8-10) Last Admin: 08/01/17 01:00 Dose: 2 mg Hydromorphone HCl (Dilaudid) 1 mg IVP Q4H PRN PRN Reason: Pain, moderate (4-7) Last Admin: 08/02/17 05:41 Dose: 1 mg Insulin Detemir (Levemir) 10 unit SC [facility] Last Admin: 08/01/17 21:10 Dose: 10 unit Insulin Human Regular (Novolin R) 0 unit SC [facility] PRN Reason: Protocol Last Admin: 08/02/17 07:46 Dose: 2 unit Isosorbide Mononitrate (Imdur) 60 mg PO DAILY [facility] Last Admin: 08/02/17 09:13 Dose: Not Given Lactulose (Enulose) 20 gm PO DAILY [facility] Last Admin: 08/02/17 09:12 Dose: 20 gm Levetiracetam (Keppra) 500 mg PO BID [facility] Last Admin: 08/02/17 09:12 Dose: 500 mg Montelukast Sodium (Singulair) 10 mg PO DAILY [facility] Last Admin: 08/02/17 09:12 Dose: 10 mg Pantoprazole Sodium (Protonix Ec Tab) 40 mg PO DAILY [facility] Last Admin: 08/02/17 09:12 Dose: 40 mg Rosuvastatin Calcium (Crestor) 10 mg PO [facility] Last Admin: 08/01/17 21:09 Dose: 10 mg Sertraline HCl (Zoloft) 50 mg PO DAILY [facility] Last Admin: 08/02/17 09:14 Dose: Not Given Sevelamer Carbonate (Renvela) 800 mg PO TIDCC [facility] Last Admin: 08/02/17 08:45 Dose: 800 mg Valproate Sodium (Depakene Oral Soln) 250 mg PO QID [facility] Last Admin: 08/02/17 09:12 Dose: 250 mg Vitamin B Complex/Vit C/Folic Acid (Nephro-Courtney) 1 tab PO DAILY [facility] Last Admin: 08/02/17 09:13 Dose: Not Given - Labs Labs: 07/30/17 11:09 07/31/17 20:49 PT 12.4 SECONDS (9.7-12.2) H 07/30/17 10:27 INR 1.1 07/30/17 10:27 APTT 29 SECONDS (21-34) 07/30/17 10:27 - Constitutional Appears: Non-toxic - Head Exam Head Exam: ATRAUMATIC - Eye Exam Additional comments: legaly blind - ENT Exam ENT Exam: Mucous Membranes Dry - Neck Exam Neck Exam: Full ROM - Respiratory Exam Respiratory Exam: Decreased Breath Sounds - Cardiovascular Exam Cardiovascular Exam: REGULAR RHYTHM, +S1, +S2, +S4 Additional comments: hypotensive - GI/Abdominal Exam GI & Abdominal Exam: Normal Bowel Sounds - Rectal Exam Rectal Exam: NORMAL INSPECTION - Back Exam Back Exam: NORMAL INSPECTION - Psychiatric Exam Psychiatric exam: Normal Affect - Skin Skin Exam: Pallor Assessment and Plan - Assessment and Plan (Free Text) Assessment: ac chest pain mi secere cad dm ESRF HTN NOW HYOTENSION Plan: WELL KEEP MONITERING C ENZYME HOLD ALL BP MED DICUSED WITH DR GRAFF HIS CAD IS VERY ADVACED CANO BE OPENED
[2017-08-02 12:14] LABS: TROPONIN I 2.78 ng/mL (0.00-0.120)
--- NOTE | 2017-08-02 12:37 | CP.PCM.PN ---
Subjective - Date & Time of Evaluation Date of Evaluation: 08/02/17 Time of Evaluation: 12:36 - Subjective Subjective: No new complaints CP resolved SOB improved No volume overload No N/V, no fevers or chills Objective - Vital Signs/Intake and Output Vital Signs (last 24 hours): Temp Pulse Resp BP Pulse Ox 97.9 F 68 18 93/59 L 100 08/02/17 07:20 08/02/17 07:20 08/02/17 07:20 08/02/17 07:20 08/02/17 07:20 - Medications Medications: Current Medications Albuterol/Ipratropium (Duoneb 3 Mg/0.5 Mg (3 Ml) Ud) 3 ml IH RQ4 [facility] Last Admin: 08/02/17 07:11 Dose: Not Given Amlodipine Besylate (Norvasc) 5 mg PO DAILY [facility] Aspirin (Aspirin Chewable) 81 mg PO DAILY [facility] Last Admin: 08/02/17 09:12 Dose: 81 mg Calcitriol (Rocaltrol) 0.25 mcg PO TTS [facility] Last Admin: 08/01/17 10:52 Dose: Not Given Calcium Carbonate (Oscal) 500 mg PO BID [facility] Last Admin: 08/02/17 09:12 Dose: 500 mg Carvedilol (Coreg) 6.25 mg PO Q12 [facility] Last Admin: 08/02/17 09:13 Dose: Not Given Clonidine HCl (Catapres Tts1 0.1 Mg/24 Hr) 1 patch TD Q7D@1000 [facility] Epoetin Tom (Procrit) 4,000 unit IV TTS [facility] Last Admin: 08/01/17 10:56 Dose: 4,000 unit Ergocalciferol (Drisdol 50,000 Intl Units Cap) 1 cap PO Q7D [facility] Last Admin: 07/31/17 08:09 Dose: 1 cap Heparin Sodium (Porcine) (Heparin) 5,000 units SC Q12 [facility] Last Admin: 08/02/17 09:12 Dose: 5,000 units Hydromorphone HCl (Dilaudid) 2 mg PO Q6H PRN PRN Reason: Pain, severe (8-10) Last Admin: 08/01/17 01:00 Dose: 2 mg Hydromorphone HCl (Dilaudid) 1 mg IVP Q4H PRN PRN Reason: Pain, moderate (4-7) Last Admin: 08/02/17 11:46 Dose: 1 mg Insulin Detemir (Levemir) 10 unit SC [facility] Last Admin: 08/01/17 21:10 Dose: 10 unit Insulin Human Regular (Novolin R) 0 unit SC [facility] PRN Reason: Protocol Last Admin: 08/02/17 11:49 Dose: Not Given Isosorbide Mononitrate (Imdur) 60 mg PO DAILY [facility] Last Admin: 08/02/17 09:13 Dose: Not Given Lactulose (Enulose) 20 gm PO DAILY [facility] Last Admin: 08/02/17 09:12 Dose: 20 gm Levetiracetam (Keppra) 500 mg PO BID [facility] Last Admin: 08/02/17 09:12 Dose: 500 mg Montelukast Sodium (Singulair) 10 mg PO DAILY [facility] Last Admin: 08/02/17 09:12 Dose: 10 mg Pantoprazole Sodium (Protonix Ec Tab) 40 mg PO DAILY [facility] Last Admin: 08/02/17 09:12 Dose: 40 mg Rosuvastatin Calcium (Crestor) 10 mg PO [facility] Last Admin: 08/01/17 21:09 Dose: 10 mg Sertraline HCl (Zoloft) 50 mg PO DAILY [facility] Last Admin: 08/02/17 09:14 Dose: Not Given Sevelamer Carbonate (Renvela) 800 mg PO TIDCC [facility] Last Admin: 08/02/17 11:46 Dose: 800 mg Valproate Sodium (Depakene Oral Soln) 250 mg PO QID [facility] Last Admin: 08/02/17 09:12 Dose: 250 mg Vitamin B Complex/Vit C/Folic Acid (Nephro-Courtney) 1 tab PO DAILY [facility] Last Admin: 08/02/17 09:13 Dose: Not Given - Labs Labs: 07/30/17 11:09 07/31/17 20:49 PT 12.4 SECONDS (9.7-12.2) H 07/30/17 10:27 INR 1.1 07/30/17 10:27 APTT 29 SECONDS (21-34) 07/30/17 10:27 - Constitutional Appears: No Acute Distress - Respiratory Exam Respiratory Exam: Clear to Ausculation Bilateral. absent: Rhonchi, Wheezes - Cardiovascular Exam Cardiovascular Exam: REGULAR RHYTHM, +S1, +S2, Murmur. absent: JVD - Extremities Exam Extremities Exam: absent: Normal Inspection (b/L BKA) - Neurological Exam Neurological Exam: Alert, Awake, Oriented x3 Assessment and Plan - Assessment and Plan (Free Text) Assessment: 37 y/o with transgender phenotype > DM brittle poorly controlled and hx of non-compliance > HTN is chronic and stable; with hx of non-compliance and sporadic lability > ESRD on HD with hx of non-compliance and missed sessions > PVD s/p bilateral BKA due to recurrent infections and progressive gangrene and non-healing ulcers > Legally blind Coronary artery disease s/p CABG and subsequent PCI all grafts are closed > He remains with preserved LV function and advanced diastolic dysfunction despite diffuse small vessel CAD (too small for PCI) > He is not having any angina or advanced CHF > Medical therapy remains his most important and sole treatment option at this stage. > Continue ASA as tolerated, imdur, coreg, high intensity statin; ranexa and titrate these meds as tolerated to achieve optimal BP and HR control. (<120/80 and HR <65). > current troponin elevation may be due to deman ischemia from diffuse CAD versus NSTEMI versus acute on chronic myonecrosis from microvascular disease and ESRD. * He unfortunately is not a candidate for any surgical or percutaneous therapy. * Trop trending down 0.14 > 4.7 > 2.7 * He has had hx of atrial catheter related thrombus in past ---> he was challenged with AC on many occasionas but due to GI bleed deemed unsafe * he has known documented hx of parx AFLUTTER/AFIB CP resolved SOB improved Conservative rx and d/c home when stable.
--- NOTE | 2017-08-02 16:30 | CP.PCM.PN ---
Subjective - Date & Time of Evaluation Date of Evaluation: 08/02/17 Time of Evaluation: 16:29 - Subjective Subjective: Follow up Nephrology Consultation: Assessment: Stable Pulmonay edema with htn emergency, Hyperkalemia, elevated troponins Diabetic chronic Kidney Disease (E11.22) Hypertensive Chronic Kidney Disease (I12.0) End stage renal disease (N18.6) dependence on hemodialysis (Z99.2) (TTS) via AVF Anemia (D64.9), Hyperphosphatemia (E83.39), Secondary Hyperparathyroidism (E21.1 ), HTN (I12.0) CAD s/p CABG, diastolic CHF, pA flutter/fib, intra-cardiac thrombus, Heparin induced thrombocytopenia, hx of seizure, blindness Plan: routine dialysis tomorrow as per TTS schedule. Continue with Nephrovite 1 tab/ day. PRBC as needed for anemia. On HANNAH as epogen Continue with phos binders home dose Continue with calcitriol BP control with meds as ordered. Patient not on RAAS skyler, BP labile. lowered norvasc Glycemic control, Dialysis consistent diet Further work up/management as per primary team Dose meds/antibiotics (if needed) for ESRD status. Avoid fleets enema/magnesium based laxatives. avoid heparin during HD due to hx of HIT. Thanks for allowing me to participate in care of your patient. Will follow patient with you. Please call if any Qs Dr Eric Temple Office: [phone] Chief Complaint; SOB and chest pain HPI: Pt is a 36 y/o transgender M with hx of ESRD on hemodialysis (TTS) via permacath, chronic anemia, hyperphosphatemia, secondary hyperparathyroidism, Diabetes Mellitus, hypertension, CAD s/p CABG, diastolic CHF, pA flutter/fib, intra-cardiac thrombus, Heparin indueced thrombocytopenia presented with complaints of chest pain and SOB for last 1 week improved chest pain, denies palpitation, improved shortness of breath. Physical Examination: General Appearance: Comfortable, in no acute respiratory distress, co-operative . Vitals reviewed and noted as below Head; Atraumatic, normocephalic ENT: no ulcers no thrush. Tongue is midline. Oropharynx: no rash or ulcers. EYES: Pt is blind both eyes Neck; supple no lymphadenopathy, no thyromegaly or bruit Lungs: Normal respiratory rate/effort. Breath sounds bilateral equal clear Heart: Normal rate. s1s2 normal. No rub or gallop. Extremities: no edema. No varicose veins. has b/l BKA Neurological: Patient is alert, awake and oriented to person, place and time. No focal deficit. Strength bilateral appropriate and equal Skin: Warm and dry. Normal turgor. No rash. Palpitation: Normal elasticity for age Abdomen: Abdomen is soft. Bowel sounds +. There is no abdominal tenderness, no guarding/rigidity or organomegaly Psych: normal insight and normal affect/mood MSK: no joint tenderness or swelling. Digits and nails normal, no deformity : kidney or bladder not palpable Access: permacath Labs/imaging reviewed. Past medical history, past surgical history, family history, social history, allergy reviewed and noted as below Family Hx: no hx of CKD. Non contributory Objective - Vital Signs/Intake and Output Vital Signs (last 24 hours): Temp Pulse Resp BP Pulse Ox 97.9 F 68 18 93/59 L 100 08/02/17 07:20 08/02/17 07:20 08/02/17 07:20 08/02/17 07:20 08/02/17 07:20 Intake and Output: 08/02/17 08/02/17 06:59 18:59 Intake Total 280 Balance 280 - Medications Medications: Current Medications Albuterol/Ipratropium (Duoneb 3 Mg/0.5 Mg (3 Ml) Ud) 3 ml IH RQ4 [facility] Last Admin: 08/02/17 16:17 Dose: 3 ml Amlodipine Besylate (Norvasc) 5 mg PO DAILY [facility] Aspirin (Aspirin Chewable) 81 mg PO DAILY [facility] Last Admin: 08/02/17 09:12 Dose: 81 mg Calcitriol (Rocaltrol) 0.25 mcg PO TTS [facility] Last Admin: 08/01/17 10:52 Dose: Not Given Calcium Carbonate (Oscal) 500 mg PO BID [facility] Last Admin: 08/02/17 09:12 Dose: 500 mg Carvedilol (Coreg) 6.25 mg PO Q12 [facility] Last Admin: 08/02/17 09:13 Dose: Not Given Clonidine HCl (Catapres Tts1 0.1 Mg/24 Hr) 1 patch TD Q7D@1000 [facility] Epoetin Tom (Procrit) 4,000 unit IV TTS [facility] Last Admin: 08/01/17 10:56 Dose: 4,000 unit Ergocalciferol (Drisdol 50,000 Intl Units Cap) 1 cap PO Q7D [facility] Last Admin: 07/31/17 08:09 Dose: 1 cap Heparin Sodium (Porcine) (Heparin) 5,000 units SC Q12 [facility] Last Admin: 08/02/17 09:12 Dose: 5,000 units Hydromorphone HCl (Dilaudid) 2 mg PO Q6H PRN PRN Reason: Pain, severe (8-10) Last Admin: 08/01/17 01:00 Dose: 2 mg Hydromorphone HCl (Dilaudid) 1 mg IVP Q4H PRN PRN Reason: Pain, moderate (4-7) Insulin Detemir (Levemir) 10 unit SC HS [facility] Last Admin: 08/01/17 21:10 Dose: 10 unit Insulin Human Regular (Novolin R) 0 unit SC [facility] PRN Reason: Protocol Last Admin: 08/02/17 11:49 Dose: Not Given Isosorbide Mononitrate (Imdur) 60 mg PO DAILY [facility] Last Admin: 08/02/17 09:13 Dose: Not Given Lactulose (Enulose) 20 gm PO DAILY [facility] Last Admin: 08/02/17 09:12 Dose: 20 gm Levetiracetam (Keppra) 500 mg PO BID [facility] Last Admin: 08/02/17 09:12 Dose: 500 mg Montelukast Sodium (Singulair) 10 mg PO DAILY [facility] Last Admin: 08/02/17 09:12 Dose: 10 mg Pantoprazole Sodium (Protonix Ec Tab) 40 mg PO DAILY [facility] Last Admin: 08/02/17 09:12 Dose: 40 mg Rosuvastatin Calcium (Crestor) 10 mg PO HS [facility] Last Admin: 08/01/17 21:09 Dose: 10 mg Sertraline HCl (Zoloft) 50 mg PO DAILY [facility] Last Admin: 08/02/17 09:14 Dose: Not Given Sevelamer Carbonate (Renvela) 800 mg PO TIDCC [facility] Last Admin: 08/02/17 11:46 Dose: 800 mg Valproate Sodium (Depakene Oral Soln) 250 mg PO QID [facility] Last Admin: 08/02/17 14:08 Dose: 250 mg Vitamin B Complex/Vit C/Folic Acid (Nephro-Courtney) 1 tab PO DAILY [facility] Last Admin: 08/02/17 09:13 Dose: Not Given - Labs Labs: 07/30/17 11:09 07/31/17 20:49 PT 12.4 SECONDS (9.7-12.2) H 07/30/17 10:27 INR 1.1 07/30/17 10:27 APTT 29 SECONDS (21-34) 07/30/17 10:27
[2017-08-02] MEDS: HYDROmorphone 1 mg/ml ISec IVP PRN ×2 (17:15→23:30)
--- NOTE | 2017-08-02 19:31 | CARD ---
APPROVED REPORT EKG Measurement Heart [id number] [place] [id number] [id number] <Conclusion> Normal sinus rhythm Incomplete left bundle branch block Left ventricular hypertrophy with repolarization abnormality Abnormal ECG
[2017-08-02] MEDS: Insulin Detemir 100 units/ml Vial (Levemir) SC SCH (22:21)
[2017-08-03] MEDS: Albuterol-Ipratrop 3 mg / 0.5 (3 ml) UD IH SCH ×7 (00:38→23:39)
[2017-08-03] MEDS: (Novolin R) Insulin Human Regular 100 units/ml vial SC SCH ×4 (08:00→23:47)
[2017-08-03] MEDS: Valproic Acid 250 mg/5 ml UD Cup PO SCH ×4 (09:40→22:11)
[2017-08-03] MEDS: Pantoprazole 40 mg EC Tab PO SCH (09:40)
[2017-08-03] MEDS: Multivitamin Vitamin B Complex (Nephro-Vite) Tab PO SCH (09:43)
--- NOTE | 2017-08-03 09:45 | CP.PCM.PN ---
Subjective - Date & Time of Evaluation Date of Evaluation: 08/03/17 Time of Evaluation: 09:43 - Subjective Subjective: less chest pain weeke sleepy Objective - Vital Signs/Intake and Output Vital Signs (last 24 hours): Temp Pulse Resp BP Pulse Ox 97.9 F 66 20 139/62 100 08/03/17 08:11 08/03/17 08:11 08/03/17 08:11 08/03/17 08:11 08/03/17 08:11 Intake and Output: 08/03/17 08/03/17 06:59 18:59 Intake Total 250 Balance 250 - Medications Medications: Current Medications Albuterol/Ipratropium (Duoneb 3 Mg/0.5 Mg (3 Ml) Ud) 3 ml IH RQ4 [facility] Last Admin: 08/03/17 07:38 Dose: Not Given Amlodipine Besylate (Norvasc) 5 mg PO DAILY [facility] Last Admin: 08/03/17 09:40 Dose: 5 mg Aspirin (Aspirin Chewable) 81 mg PO DAILY [facility] Last Admin: 08/03/17 09:39 Dose: 81 mg Calcitriol (Rocaltrol) 0.25 mcg PO TTS [facility] Last Admin: 08/03/17 09:40 Dose: 0.25 mcg Calcium Carbonate (Oscal) 500 mg PO BID [facility] Last Admin: 08/03/17 09:40 Dose: 500 mg Carvedilol (Coreg) 6.25 mg PO Q12 [facility] Last Admin: 08/03/17 09:39 Dose: 6.25 mg Clonidine HCl (Catapres Tts1 0.1 Mg/24 Hr) 1 patch TD Q7D@1000 [facility] Epoetin Tom (Procrit) 4,000 unit IV TTS [facility] Last Admin: 08/01/17 10:56 Dose: 4,000 unit Ergocalciferol (Drisdol 50,000 Intl Units Cap) 1 cap PO Q7D [facility] Last Admin: 07/31/17 08:09 Dose: 1 cap Hydromorphone HCl (Dilaudid) 2 mg PO Q6H PRN PRN Reason: Pain, severe (8-10) Last Admin: 08/01/17 01:00 Dose: 2 mg Hydromorphone HCl (Dilaudid) 1 mg IVP Q4H PRN PRN Reason: Pain, moderate (4-7) Last Admin: 08/02/17 23:30 Dose: 1 mg Insulin Detemir (Levemir) 10 unit SC [facility] Last Admin: 08/02/17 22:21 Dose: 10 unit Insulin Human Regular (Novolin R) 0 unit SC [facility] PRN Reason: Protocol Last Admin: 08/03/17 08:00 Dose: Not Given Isosorbide Mononitrate (Imdur) 60 mg PO DAILY [facility] Last Admin: 08/03/17 09:39 Dose: 60 mg Lactulose (Enulose) 20 gm PO DAILY [facility] Last Admin: 08/02/17 09:12 Dose: 20 gm Levetiracetam (Keppra) 500 mg PO BID [facility] Last Admin: 08/03/17 09:40 Dose: 500 mg Montelukast Sodium (Singulair) 10 mg PO DAILY [facility] Last Admin: 08/03/17 09:39 Dose: 10 mg Pantoprazole Sodium (Protonix Ec Tab) 40 mg PO DAILY [facility] Last Admin: 08/03/17 09:40 Dose: 40 mg Rosuvastatin Calcium (Crestor) 10 mg PO [facility] Last Admin: 08/02/17 22:20 Dose: 10 mg Sertraline HCl (Zoloft) 50 mg PO DAILY [facility] Last Admin: 08/03/17 09:40 Dose: 50 mg Sevelamer Carbonate (Renvela) 800 mg PO TIDCC [facility] Last Admin: 08/03/17 08:31 Dose: Not Given Valproate Sodium (Depakene Oral Soln) 250 mg PO QID [facility] Last Admin: 08/03/17 09:40 Dose: 250 mg Vitamin B Complex/Vit C/Folic Acid (Nephro-Courtney) 1 tab PO DAILY [facility] Last Admin: 08/02/17 09:13 Dose: Not Given - Labs Labs: 07/30/17 11:09 07/31/17 20:49 PT 12.4 SECONDS (9.7-12.2) H 07/30/17 10:27 INR 1.1 07/30/17 10:27 APTT 29 SECONDS (21-34) 07/30/17 10:27 - Head Exam Head Exam: ATRAUMATIC - ENT Exam ENT Exam: Mucous Membranes Dry - Neck Exam Neck Exam: Full ROM - Respiratory Exam Respiratory Exam: Decreased Breath Sounds - Cardiovascular Exam Cardiovascular Exam: REGULAR RHYTHM - GI/Abdominal Exam GI & Abdominal Exam: Soft - Rectal Exam Rectal Exam: NORMAL INSPECTION - Neurological Exam Neurological Exam: Motor Sensory Deficit, Oriented x3 - Psychiatric Exam Psychiatric exam: Normal Affect - Skin Skin Exam: Dry Assessment and Plan - Assessment and Plan (Free Text) Assessment: ac chest pain mi chf dm esrf cont curent tratment
--- NOTE | 2017-08-03 10:33 | CARD ---
APPROVED REPORT EKG Measurement Heart [id number] MN [id number] <Conclusion> Normal sinus rhythm Possible Left atrial enlargement Nonspecific ST abnormality Abnormal QRS-T angle, consider primary T wave abnormality Abnormal ECG
[2017-08-03] MEDS: EPOETIN ALFA 4,000 UNIT/ML ML Dialysis IV SCH ×2 (10:35→11:41)
--- NOTE | 2017-08-03 10:38 | CARD ---
APPROVED REPORT EKG Measurement Heart [id number] MT P159 [id number] <Conclusion> Atrial flutter with 4:1 AV conduction Left ventricular hypertrophy with QRS widening Marked ST abnormality, possible lateral subendocardial injury Abnormal ECG
--- NOTE | 2017-08-03 10:41 | CARD ---
APPROVED REPORT EKG Measurement Heart [id number] [place] 96P-12 [id number] <Conclusion> Sinus tachycardia with short [place] interval Nonspecific ST T abnormality, consider lateral wall ischemia Abnormal ECG
--- NOTE | 2017-08-03 10:42 | CARD ---
APPROVED REPORT EKG Measurement Heart [id number] SD 80P [id number] <Conclusion> Sinus tachycardia with short SD Nonspecific ST T abnormality, consider lateral wall ischemia Abnormal ECG
--- NOTE | 2017-08-03 11:22 | CP.PCM.PN ---
Subjective - Date & Time of Evaluation Date of Evaluation: 08/03/17 Time of Evaluation: 11:20 - Subjective Subjective: no new cardiac events on HD Generally weak No CP or worsening CHF Objective - Vital Signs/Intake and Output Vital Signs (last 24 hours): Temp Pulse Resp BP Pulse Ox 97.9 F 66 20 139/62 100 08/03/17 08:11 08/03/17 08:11 08/03/17 08:11 08/03/17 08:11 08/03/17 08:11 Intake and Output: 08/03/17 08/03/17 06:59 18:59 Intake Total 250 Balance 250 - Medications Medications: Current Medications Albuterol/Ipratropium (Duoneb 3 Mg/0.5 Mg (3 Ml) Ud) 3 ml IH RQ4 [facility] Last Admin: 08/03/17 07:38 Dose: Not Given Amlodipine Besylate (Norvasc) 5 mg PO DAILY [facility] Last Admin: 08/03/17 09:40 Dose: 5 mg Aspirin (Aspirin Chewable) 81 mg PO DAILY [facility] Last Admin: 08/03/17 09:39 Dose: 81 mg Calcitriol (Rocaltrol) 0.25 mcg PO TTS [facility] Last Admin: 08/03/17 09:40 Dose: 0.25 mcg Calcium Carbonate (Oscal) 500 mg PO BID [facility] Last Admin: 08/03/17 09:40 Dose: 500 mg Carvedilol (Coreg) 6.25 mg PO Q12 [facility] Last Admin: 08/03/17 09:39 Dose: 6.25 mg Clonidine HCl (Catapres Tts1 0.1 Mg/24 Hr) 1 patch TD Q7D@1000 [facility] Epoetin Tom (Procrit) 4,000 unit IV TTS [facility] Last Admin: 08/03/17 10:35 Dose: Not Given Ergocalciferol (Drisdol 50,000 Intl Units Cap) 1 cap PO Q7D [facility] Last Admin: 07/31/17 08:09 Dose: 1 cap Hydromorphone HCl (Dilaudid) 2 mg PO Q6H PRN PRN Reason: Pain, severe (8-10) Last Admin: 08/01/17 01:00 Dose: 2 mg Hydromorphone HCl (Dilaudid) 1 mg IVP Q4H PRN PRN Reason: Pain, moderate (4-7) Last Admin: 08/02/17 23:30 Dose: 1 mg Insulin Detemir (Levemir) 10 unit SC [facility] Last Admin: 08/02/17 22:21 Dose: 10 unit Insulin Human Regular (Novolin R) 0 unit SC [facility] PRN Reason: Protocol Last Admin: 08/03/17 08:00 Dose: Not Given Isosorbide Mononitrate (Imdur) 60 mg PO DAILY [facility] Last Admin: 08/03/17 09:39 Dose: 60 mg Lactulose (Enulose) 20 gm PO DAILY [facility] Last Admin: 08/03/17 09:43 Dose: 20 gm Levetiracetam (Keppra) 500 mg PO BID [facility] Last Admin: 08/03/17 09:40 Dose: 500 mg Montelukast Sodium (Singulair) 10 mg PO DAILY [facility] Last Admin: 08/03/17 09:39 Dose: 10 mg Pantoprazole Sodium (Protonix Ec Tab) 40 mg PO DAILY [facility] Last Admin: 08/03/17 09:40 Dose: 40 mg Rosuvastatin Calcium (Crestor) 10 mg PO [facility] Last Admin: 08/02/17 22:20 Dose: 10 mg Sertraline HCl (Zoloft) 50 mg PO DAILY [facility] Last Admin: 08/03/17 09:40 Dose: 50 mg Sevelamer Carbonate (Renvela) 800 mg PO TIDCC [facility] Last Admin: 08/03/17 08:31 Dose: Not Given Valproate Sodium (Depakene Oral Soln) 250 mg PO QID [facility] Last Admin: 08/03/17 09:40 Dose: 250 mg Vitamin B Complex/Vit C/Folic Acid (Nephro-Courtney) 1 tab PO DAILY [facility] Last Admin: 08/03/17 09:43 Dose: Not Given - Labs Labs: 07/30/17 11:09 07/31/17 20:49 PT 12.4 SECONDS (9.7-12.2) H 07/30/17 10:27 INR 1.1 07/30/17 10:27 APTT 29 SECONDS (21-34) 07/30/17 10:27 - Constitutional Appears: No Acute Distress - Head Exam Head Exam: ATRAUMATIC, NORMAL INSPECTION, NORMOCEPHALIC - Eye Exam Eye Exam: EOMI - ENT Exam ENT Exam: Mucous Membranes Moist, Normal Oropharynx - Respiratory Exam Respiratory Exam: Clear to Ausculation Bilateral, NORMAL BREATHING PATTERN. absent: Rhonchi, Wheezes - Cardiovascular Exam Cardiovascular Exam: REGULAR RHYTHM, +S1, +S2, Murmur - Extremities Exam Extremities Exam: absent: Normal Inspection (b/l BKA) - Psychiatric Exam Psychiatric exam: Depressed - Skin Skin Exam: Normal Color, Warm Assessment and Plan - Assessment and Plan (Free Text) Assessment: 37 y/o with transgender phenotype > DM brittle poorly controlled and hx of non-compliance > HTN is chronic and stable; with hx of non-compliance and sporadic lability > ESRD on HD with hx of non-compliance and missed sessions > PVD s/p bilateral BKA due to recurrent infections and progressive gangrene and non-healing ulcers > Legally blind Coronary artery disease s/p CABG and subsequent PCI all grafts are closed > He remains with preserved LV function and advanced diastolic dysfunction despite diffuse small vessel CAD (too small for PCI) > He is not having any angina or advanced CHF > Medical therapy remains his most important and sole treatment option at this stage. > Continue ASA as tolerated, imdur, coreg, high intensity statin; ranexa and titrate these meds as tolerated to achieve optimal BP and HR control. (<120/80 and HR <65). > current troponin elevation may be due to deman ischemia from diffuse CAD versus NSTEMI versus acute on chronic myonecrosis from microvascular disease and ESRD. * He unfortunately is not a candidate for any surgical or percutaneous therapy. * Trop trending down 0.14 > 4.7 > 2.7 * He has had hx of atrial catheter related thrombus in past ---> he was challenged with AC on many occasionas but due to GI bleed deemed unsafe * he has known documented hx of parx AFLUTTER/AFIB CP resolved SOB improved Conservative rx and d/c home when stable.
--- NOTE | 2017-08-03 16:58 | CP.PCM.PN ---
Subjective - Date & Time of Evaluation Date of Evaluation: 08/03/17 Time of Evaluation: 16:58 - Subjective Subjective: renal follow up note please call us at [phone] if any qs. no events overnight Physical Examination: General Appearance: Comfortable, Head; Atraumatic, normocephalic ENT: no ulcers no thrush. EYES: Pt is blind Neck; supple no lymphadenopathy, no thyromegaly or bruit Lungs: Normal respiratory rate/effort. Breath sounds bilateral equal clear Heart: Normal rate. s1s2 normal. No rub or gallop. Extremities: no edema. has b/l BKA Neurological: Patient is alert, awake and oriented to person, place and time. No focal deficit. Skin: Warm and dry. Normal turgor. Abdomen: Abdomen is soft. Bowel sounds + Psych: normal insight and normal affect/mood MSK: no joint tenderness or swelling. Access: permacath A&P: ESRD/htn/dm/cad/hyperkalemia/sec hyperpth/anemia hd tts, today per schedule lyryder reviewed anemia epo with hd continue binders and calcitriol HTN continue current meds no heparin due to hx of HIT Objective - Vital Signs/Intake and Output Vital Signs (last 24 hours): Temp Pulse Resp BP Pulse Ox 97.7 F 71 18 120/56 L 100 08/03/17 14:10 08/03/17 14:10 08/03/17 14:10 08/03/17 14:10 08/03/17 14:10 Intake and Output: 08/03/17 08/03/17 06:59 18:59 Intake Total 250 280 Output Total 2500 Balance 250 -2220 - Medications Medications: Current Medications Albuterol/Ipratropium (Duoneb 3 Mg/0.5 Mg (3 Ml) Ud) 3 ml IH RQ4 [facility] Last Admin: 08/03/17 11:36 Dose: Not Given Amlodipine Besylate (Norvasc) 5 mg PO DAILY [facility] Last Admin: 08/03/17 09:40 Dose: 5 mg Aspirin (Aspirin Chewable) 81 mg PO DAILY [facility] Last Admin: 08/03/17 09:39 Dose: 81 mg Calcitriol (Rocaltrol) 0.25 mcg PO TTS [facility] Last Admin: 08/03/17 09:40 Dose: 0.25 mcg Calcium Carbonate (Oscal) 500 mg PO BID [facility] Last Admin: 08/03/17 09:40 Dose: 500 mg Carvedilol (Coreg) 6.25 mg PO Q12 [facility] Last Admin: 08/03/17 09:39 Dose: 6.25 mg Clonidine HCl (Catapres Tts1 0.1 Mg/24 Hr) 1 patch TD Q7D@1000 [facility] Epoetin Tom (Procrit) 4,000 unit IV TTS [facility] Last Admin: 08/03/17 11:41 Dose: 4,000 unit Ergocalciferol (Drisdol 50,000 Intl Units Cap) 1 cap PO Q7D [facility] Last Admin: 07/31/17 08:09 Dose: 1 cap Hydromorphone HCl (Dilaudid) 2 mg PO Q6H PRN PRN Reason: Pain, severe (8-10) Last Admin: 08/01/17 01:00 Dose: 2 mg Hydromorphone HCl (Dilaudid) 1 mg IVP Q4H PRN PRN Reason: Pain, moderate (4-7) Last Admin: 08/02/17 23:30 Dose: 1 mg Insulin Detemir (Levemir) 10 unit SC [facility] Last Admin: 08/02/17 22:21 Dose: 10 unit Insulin Human Regular (Novolin R) 0 unit SC [facility] PRN Reason: Protocol Last Admin: 08/03/17 11:43 Dose: Not Given Isosorbide Mononitrate (Imdur) 60 mg PO DAILY [facility] Last Admin: 08/03/17 09:39 Dose: 60 mg Lactulose (Enulose) 20 gm PO DAILY [facility] Last Admin: 08/03/17 09:43 Dose: 20 gm Levetiracetam (Keppra) 500 mg PO BID [facility] Last Admin: 08/03/17 09:40 Dose: 500 mg Montelukast Sodium (Singulair) 10 mg PO DAILY [facility] Last Admin: 08/03/17 09:39 Dose: 10 mg Pantoprazole Sodium (Protonix Ec Tab) 40 mg PO DAILY [facility] Last Admin: 08/03/17 09:40 Dose: 40 mg Rosuvastatin Calcium (Crestor) 10 mg PO HS [facility] Last Admin: 08/02/17 22:20 Dose: 10 mg Sertraline HCl (Zoloft) 50 mg PO DAILY [facility] Last Admin: 08/03/17 09:40 Dose: 50 mg Sevelamer Carbonate (Renvela) 800 mg PO TIDCC [facility] Last Admin: 08/03/17 11:43 Dose: Not Given Valproate Sodium (Depakene Oral Soln) 250 mg PO QID [facility] Last Admin: 08/03/17 15:00 Dose: Not Given Vitamin B Complex/Vit C/Folic Acid (Nephro-Courtney) 1 tab PO DAILY [facility] Last Admin: 08/03/17 09:43 Dose: Not Given - Labs Labs: 07/30/17 11:09 07/31/17 20:49 PT 12.4 SECONDS (9.7-12.2) H 07/30/17 10:27 INR 1.1 07/30/17 10:27 APTT 29 SECONDS (21-34) 07/30/17 10:27
[2017-08-03] MEDS: HYDROmorphone 1 mg/ml ISec IVP PRN (18:25)
[2017-08-03] MEDS: Insulin Detemir 100 units/ml Vial (Levemir) SC SCH (22:11)
[2017-08-04] MEDS: HYDROmorphone 1 mg/ml ISec IVP PRN ×3 (00:15→20:12)
[2017-08-04] MEDS: Albuterol-Ipratrop 3 mg / 0.5 (3 ml) UD IH SCH ×6 (03:25→23:47)
[2017-08-04] MEDS: (Novolin R) Insulin Human Regular 100 units/ml vial SC SCH ×4 (08:23→21:46)
[2017-08-04] MEDS: Multivitamin Vitamin B Complex (Nephro-Vite) Tab PO SCH (09:34)
[2017-08-04] MEDS: Pantoprazole 40 mg EC Tab PO SCH (09:34)
[2017-08-04] MEDS: Valproic Acid 250 mg/5 ml UD Cup PO SCH ×4 (09:34→21:46)
--- NOTE | 2017-08-04 10:57 | CP.PCM.PN ---
Subjective - Date & Time of Evaluation Date of Evaluation: 08/04/17 Time of Evaluation: 10:54 - Subjective Subjective: pt feels beter less chest pain less sob Objective - Vital Signs/Intake and Output Vital Signs (last 24 hours): Temp Pulse Resp BP Pulse Ox 98.0 F 67 20 147/73 100 08/04/17 09:15 08/04/17 09:15 08/04/17 09:15 08/04/17 09:15 08/04/17 09:15 Intake and Output: 08/04/17 08/04/17 06:59 18:59 Intake Total 100 Balance 100 - Medications Medications: Current Medications Albuterol/Ipratropium (Duoneb 3 Mg/0.5 Mg (3 Ml) Ud) 3 ml IH RQ4 [facility] Last Admin: 08/04/17 07:54 Dose: Not Given Amlodipine Besylate (Norvasc) 5 mg PO DAILY [facility] Last Admin: 08/04/17 09:34 Dose: 5 mg Aspirin (Aspirin Chewable) 81 mg PO DAILY [facility] Last Admin: 08/04/17 09:34 Dose: 81 mg Calcitriol (Rocaltrol) 0.25 mcg PO TTS [facility] Last Admin: 08/03/17 09:40 Dose: 0.25 mcg Calcium Carbonate (Oscal) 500 mg PO BID [facility] Last Admin: 08/04/17 09:34 Dose: 500 mg Carvedilol (Coreg) 6.25 mg PO Q12 [facility] Last Admin: 08/04/17 09:34 Dose: 6.25 mg Clonidine HCl (Catapres Tts1 0.1 Mg/24 Hr) 1 patch TD Q7D@1000 [facility] Epoetin Tom (Procrit) 4,000 unit IV TTS [facility] Last Admin: 08/03/17 11:41 Dose: 4,000 unit Ergocalciferol (Drisdol 50,000 Intl Units Cap) 1 cap PO Q7D [facility] Last Admin: 07/31/17 08:09 Dose: 1 cap Hydromorphone HCl (Dilaudid) 2 mg PO Q6H PRN PRN Reason: Pain, severe (8-10) Last Admin: 08/01/17 01:00 Dose: 2 mg Hydromorphone HCl (Dilaudid) 1 mg IVP Q4H PRN PRN Reason: Pain, moderate (4-7) Last Admin: 08/04/17 00:15 Dose: 1 mg Insulin Detemir (Levemir) 10 unit SC [facility] Last Admin: 08/03/17 22:11 Dose: 10 unit Insulin Human Regular (Novolin R) 0 unit SC [facility] PRN Reason: Protocol Last Admin: 08/04/17 08:23 Dose: 3 unit Isosorbide Mononitrate (Imdur) 60 mg PO DAILY [facility] Last Admin: 08/04/17 09:34 Dose: 60 mg Lactulose (Enulose) 20 gm PO DAILY [facility] Last Admin: 08/04/17 09:34 Dose: 20 gm Levetiracetam (Keppra) 500 mg PO BID [facility] Last Admin: 08/04/17 09:34 Dose: 500 mg Montelukast Sodium (Singulair) 10 mg PO DAILY [facility] Last Admin: 08/04/17 09:34 Dose: 10 mg Pantoprazole Sodium (Protonix Ec Tab) 40 mg PO DAILY [facility] Last Admin: 08/04/17 09:34 Dose: 40 mg Rosuvastatin Calcium (Crestor) 10 mg PO [facility] Last Admin: 08/03/17 22:11 Dose: 10 mg Sertraline HCl (Zoloft) 50 mg PO DAILY [facility] Last Admin: 08/04/17 09:34 Dose: 50 mg Sevelamer Carbonate (Renvela) 800 mg PO TIDCC [facility] Last Admin: 08/04/17 08:23 Dose: 800 mg Valproate Sodium (Depakene Oral Soln) 250 mg PO QID [facility] Last Admin: 08/04/17 09:34 Dose: 250 mg Vitamin B Complex/Vit C/Folic Acid (Nephro-Courtney) 1 tab PO DAILY [facility] Last Admin: 08/04/17 09:34 Dose: 1 tab - Labs Labs: 07/30/17 11:09 07/31/17 20:49 PT 12.4 SECONDS (9.7-12.2) H 07/30/17 10:27 INR 1.1 07/30/17 10:27 APTT 29 SECONDS (21-34) 07/30/17 10:27 - Constitutional Appears: Non-toxic - Head Exam Head Exam: NORMAL INSPECTION - ENT Exam ENT Exam: Mucous Membranes Dry - Neck Exam Neck Exam: Full ROM - Respiratory Exam Respiratory Exam: Decreased Breath Sounds - Cardiovascular Exam Cardiovascular Exam: REGULAR RHYTHM - GI/Abdominal Exam GI & Abdominal Exam: Normal Bowel Sounds - Skin Skin Exam: Pallor Assessment and Plan - Assessment and Plan (Free Text) Assessment: severe cad chf dm htn esrf Plan: improving my d/c soon
--- NOTE | 2017-08-04 16:50 | CP.PCM.PN ---
Subjective - Date & Time of Evaluation Date of Evaluation: 08/04/17 Time of Evaluation: 16:48 - Subjective Subjective: NO CP No worsening CHF No volume overload NO fevers, chills Objective - Vital Signs/Intake and Output Vital Signs (last 24 hours): Temp Pulse Resp BP Pulse Ox 98.0 F 67 20 147/73 100 08/04/17 09:15 08/04/17 09:15 08/04/17 09:15 08/04/17 09:15 08/04/17 09:15 Intake and Output: 08/04/17 08/04/17 06:59 18:59 Intake Total 100 Balance 100 - Medications Medications: Current Medications Albuterol/Ipratropium (Duoneb 3 Mg/0.5 Mg (3 Ml) Ud) 3 ml IH RQ4 [facility] Last Admin: 08/04/17 15:56 Dose: 3 ml Amlodipine Besylate (Norvasc) 5 mg PO DAILY [facility] Last Admin: 08/04/17 09:34 Dose: 5 mg Aspirin (Aspirin Chewable) 81 mg PO DAILY [facility] Last Admin: 08/04/17 09:34 Dose: 81 mg Calcitriol (Rocaltrol) 0.25 mcg PO TTS [facility] Last Admin: 08/03/17 09:40 Dose: 0.25 mcg Calcium Carbonate (Oscal) 500 mg PO BID [facility] Last Admin: 08/04/17 09:34 Dose: 500 mg Carvedilol (Coreg) 6.25 mg PO Q12 [facility] Last Admin: 08/04/17 09:34 Dose: 6.25 mg Clonidine HCl (Catapres Tts1 0.1 Mg/24 Hr) 1 patch TD Q7D@1000 [facility] Epoetin Tom (Procrit) 4,000 unit IV TTS [facility] Last Admin: 08/03/17 11:41 Dose: 4,000 unit Ergocalciferol (Drisdol 50,000 Intl Units Cap) 1 cap PO Q7D [facility] Last Admin: 07/31/17 08:09 Dose: 1 cap Hydromorphone HCl (Dilaudid) 2 mg PO Q6H PRN PRN Reason: Pain, severe (8-10) Last Admin: 08/01/17 01:00 Dose: 2 mg Hydromorphone HCl (Dilaudid) 1 mg IVP Q4H PRN PRN Reason: Pain, moderate (4-7) Last Admin: 08/04/17 16:01 Dose: 1 mg Insulin Detemir (Levemir) 10 unit SC [facility] Last Admin: 08/03/17 22:11 Dose: 10 unit Insulin Human Regular (Novolin R) 0 unit SC [facility] PRN Reason: Protocol Last Admin: 08/04/17 11:46 Dose: Not Given Isosorbide Mononitrate (Imdur) 60 mg PO DAILY [facility] Last Admin: 08/04/17 09:34 Dose: 60 mg Lactulose (Enulose) 20 gm PO DAILY [facility] Last Admin: 08/04/17 09:34 Dose: 20 gm Levetiracetam (Keppra) 500 mg PO BID [facility] Last Admin: 08/04/17 09:34 Dose: 500 mg Montelukast Sodium (Singulair) 10 mg PO DAILY [facility] Last Admin: 08/04/17 09:34 Dose: 10 mg Pantoprazole Sodium (Protonix Ec Tab) 40 mg PO DAILY [facility] Last Admin: 08/04/17 09:34 Dose: 40 mg Rosuvastatin Calcium (Crestor) 10 mg PO [facility] Last Admin: 08/03/17 22:11 Dose: 10 mg Sertraline HCl (Zoloft) 50 mg PO DAILY [facility] Last Admin: 08/04/17 09:34 Dose: 50 mg Sevelamer Carbonate (Renvela) 800 mg PO TIDCC [facility] Last Admin: 08/04/17 12:11 Dose: 800 mg Valproate Sodium (Depakene Oral Soln) 250 mg PO QID [facility] Last Admin: 08/04/17 13:11 Dose: 250 mg Vitamin B Complex/Vit C/Folic Acid (Nephro-Courtney) 1 tab PO DAILY [facility] Last Admin: 08/04/17 09:34 Dose: 1 tab - Labs Labs: 07/30/17 11:09 07/31/17 20:49 PT 12.4 SECONDS (9.7-12.2) H 07/30/17 10:27 INR 1.1 07/30/17 10:27 APTT 29 SECONDS (21-34) 07/30/17 10:27 - Constitutional Appears: No Acute Distress, Chronically Ill - Head Exam Head Exam: ATRAUMATIC, NORMAL INSPECTION, NORMOCEPHALIC - Eye Exam Eye Exam: EOMI. absent: Normal appearance - Respiratory Exam Respiratory Exam: Clear to Ausculation Bilateral. absent: Rhonchi, Wheezes - Cardiovascular Exam Cardiovascular Exam: REGULAR RHYTHM, +S1, +S2, Murmur. absent: +S4 - Extremities Exam Extremities Exam: absent: Normal Inspection (b/L BKA) - Neurological Exam Neurological Exam: Alert, Awake - Skin Skin Exam: Normal Color, Warm Assessment and Plan - Assessment and Plan (Free Text) Assessment: 37 y/o with transgender phenotype > DM brittle poorly controlled and hx of non-compliance > HTN is chronic and stable; with hx of non-compliance and sporadic lability > ESRD on HD with hx of non-compliance and missed sessions > PVD s/p bilateral BKA due to recurrent infections and progressive gangrene and non-healing ulcers > Legally blind Coronary artery disease s/p CABG and subsequent PCI all grafts are closed > He remains with preserved LV function and advanced diastolic dysfunction despite diffuse small vessel CAD (too small for PCI) > He is not having any angina or advanced CHF > Medical therapy remains his most important and sole treatment option at this stage. > Continue ASA as tolerated, imdur, coreg, high intensity statin; ranexa and titrate these meds as tolerated to achieve optimal BP and HR control. (<120/80 and HR <65). > current troponin elevation may be due to deman ischemia from diffuse CAD versus NSTEMI versus acute on chronic myonecrosis from microvascular disease and ESRD. * He unfortunately is not a candidate for any surgical or percutaneous therapy. * Trop trending down 0.14 > 4.7 > 2.7 * He has had hx of atrial catheter related thrombus in past ---> he was challenged with AC on many occasionas but due to GI bleed deemed unsafe * he has known documented hx of parx AFLUTTER/AFIB CP resolved SOB improved Conservative rx and d/c home when stable.
[2017-08-04] MEDS: Insulin Detemir 100 units/ml Vial (Levemir) SC SCH (21:41)
[2017-08-05] MEDS: HYDROmorphone 1 mg/ml ISec IVP PRN ×6 (00:18→22:25)
[2017-08-05] MEDS: Albuterol-Ipratrop 3 mg / 0.5 (3 ml) UD IH SCH ×2 (03:04→08:10)
[2017-08-05] MEDS: (Novolin R) Insulin Human Regular 100 units/ml vial SC SCH ×4 (07:55→21:20)
[2017-08-05] MEDS: Valproic Acid 250 mg/5 ml UD Cup PO SCH ×4 (09:44→21:26)
[2017-08-05] MEDS: Pantoprazole 40 mg EC Tab PO SCH (09:44)
[2017-08-05] MEDS: Multivitamin Vitamin B Complex (Nephro-Vite) Tab PO SCH (12:03)
--- NOTE | 2017-08-05 15:50 | CP.PCM.PN ---
Subjective - Date & Time of Evaluation Date of Evaluation: 08/05/17 Time of Evaluation: 15:49 - Subjective Subjective: Follow up Nephrology Consultation: Assessment: Stable Pulmonay edema with htn emergency, Hyperkalemia, elevated troponins: improved Diabetic chronic Kidney Disease (E11.22) Hypertensive Chronic Kidney Disease (I12.0) End stage renal disease (N18.6) dependence on hemodialysis (Z99.2) (TTS) via AVF Anemia (D64.9), Hyperphosphatemia (E83.39), Secondary Hyperparathyroidism (E21.1 ), HTN (I12.0) CAD s/p CABG, diastolic CHF, pA flutter/fib, intra-cardiac thrombus, Heparin induced thrombocytopenia, hx of seizure, blindness Plan: routine dialysis tomorrow as per TTS schedule. Continue with Nephrovite 1 tab/ day. PRBC as needed for anemia. On HANNAH as epogen Continue with phos binders home dose Continue with calcitriol BP control with meds as ordered. Patient not on RAAS skyler, BP labile. lowered norvasc, now BP stable Glycemic control, Dialysis consistent diet Further work up/management as per primary team Dose meds/antibiotics (if needed) for ESRD status. Avoid fleets enema/magnesium based laxatives. avoid heparin during HD due to hx of HIT. Thanks for allowing me to participate in care of your patient. Will follow patient with you. Please call if any Qs. d/w team Dr Eric Temple Office: [phone] HPI: Pt is a 36 y/o transgender M with hx of ESRD on hemodialysis (TTS) via permacath, chronic anemia, hyperphosphatemia, secondary hyperparathyroidism, Diabetes Mellitus, hypertension, CAD s/p CABG, diastolic CHF, pA flutter/fib, intra-cardiac thrombus, Heparin indueced thrombocytopenia presented with complaints of chest pain and SOB for last 1 week c/o intermittent chest pain, denies palpitation, improved shortness of breath. Physical Examination: General Appearance: Comfortable, in no acute respiratory distress, co-operative . Vitals reviewed and noted as below Head; Atraumatic, normocephalic ENT: no ulcers no thrush. Tongue is midline. Oropharynx: no rash or ulcers. EYES: Pt is blind both eyes Neck; supple no lymphadenopathy, no thyromegaly or bruit Lungs: Normal respiratory rate/effort. Breath sounds bilateral equal clear Heart: Normal rate. s1s2 normal. No rub or gallop. Extremities: no edema. No varicose veins. has b/l BKA Neurological: Patient is alert, awake and oriented to person, place and time. No focal deficit. Strength bilateral appropriate and equal Skin: Warm and dry. Normal turgor. No rash. Palpitation: Normal elasticity for age Abdomen: Abdomen is soft. Bowel sounds +. There is no abdominal tenderness, no guarding/rigidity or organomegaly Psych: normal insight and normal affect/mood MSK: no joint tenderness or swelling. Digits and nails normal, no deformity : kidney or bladder not palpable Access: permacath Labs/imaging reviewed. Past medical history, past surgical history, family history, social history, allergy reviewed and noted as below Family Hx: no hx of CKD. Non contributory Objective - Vital Signs/Intake and Output Vital Signs (last 24 hours): Temp Pulse Resp BP Pulse Ox 98.3 F 87 20 154/82 H 99 08/05/17 08:54 08/05/17 08:54 08/05/17 08:54 08/05/17 08:54 08/05/17 08:54 Intake and Output: 08/05/17 08/05/17 06:59 18:59 Intake Total 50 Balance 50 - Medications Medications: Current Medications Amlodipine Besylate (Norvasc) 5 mg PO DAILY [facility] Last Admin: 08/05/17 09:44 Dose: 5 mg Aspirin (Aspirin Chewable) 81 mg PO DAILY [facility] Last Admin: 08/05/17 09:44 Dose: 81 mg Calcitriol (Rocaltrol) 0.25 mcg PO TTS [facility] Last Admin: 08/03/17 09:40 Dose: 0.25 mcg Calcium Carbonate (Oscal) 500 mg PO BID [facility] Last Admin: 08/05/17 09:44 Dose: 500 mg Carvedilol (Coreg) 6.25 mg PO Q12 [facility] Last Admin: 08/05/17 09:44 Dose: 6.25 mg Clonidine HCl (Catapres Tts1 0.1 Mg/24 Hr) 1 patch TD Q7D@1000 [facility] Epoetin Tom (Procrit) 4,000 unit IV TTS [facility] Last Admin: 08/03/17 11:41 Dose: 4,000 unit Ergocalciferol (Drisdol 50,000 Intl Units Cap) 1 cap PO Q7D [facility] Last Admin: 07/31/17 08:09 Dose: 1 cap Hydromorphone HCl (Dilaudid) 2 mg PO Q6H PRN PRN Reason: Pain, severe (8-10) Last Admin: 08/01/17 01:00 Dose: 2 mg Hydromorphone HCl (Dilaudid) 1 mg IVP Q4H PRN PRN Reason: Pain, moderate (4-7) Last Admin: 08/05/17 13:02 Dose: 1 mg Insulin Detemir (Levemir) [address] [facility] Last Admin: 08/04/17 21:41 Dose: 10 unit Insulin Human Regular (Novolin R) 0 unit SC [facility] PRN Reason: Protocol Last Admin: 08/05/17 11:30 Dose: Not Given Isosorbide Mononitrate (Imdur) 60 mg PO DAILY [facility] Last Admin: 08/05/17 09:44 Dose: 60 mg Lactulose (Enulose) 20 gm PO DAILY [facility] Last Admin: 08/05/17 09:44 Dose: 20 gm Levetiracetam (Keppra) 500 mg PO BID [facility] Last Admin: 08/05/17 09:44 Dose: 500 mg Montelukast Sodium (Singulair) 10 mg PO DAILY [facility] Last Admin: 08/05/17 09:44 Dose: 10 mg Pantoprazole Sodium (Protonix Ec Tab) 40 mg PO DAILY [facility] Last Admin: 08/05/17 09:44 Dose: 40 mg Rosuvastatin Calcium (Crestor) 10 mg PO HS [facility] Last Admin: 08/04/17 21:40 Dose: 10 mg Sertraline HCl (Zoloft) 50 mg PO DAILY [facility] Last Admin: 08/05/17 09:44 Dose: 50 mg Sevelamer Carbonate (Renvela) 800 mg PO TIDCC [facility] Last Admin: 08/05/17 12:03 Dose: 800 mg Valproate Sodium (Depakene Oral Soln) 250 mg PO QID [facility] Last Admin: 08/05/17 13:02 Dose: 250 mg Vitamin B Complex/Vit C/Folic Acid (Nephro-Courtney) 1 tab PO DAILY [facility] Last Admin: 08/05/17 12:03 Dose: 1 tab - Labs Labs: 11/28/17 11:09 07/31/17 20:49 PT 12.4 SECONDS (9.7-12.2) H 07/30/17 10:27 INR 1.1 07/30/17 10:27 APTT 29 SECONDS (21-34) 07/30/17 10:27
--- NOTE | 2017-08-05 16:07 | CP.PCM.PN ---
Subjective - Date & Time of Evaluation Date of Evaluation: 08/05/17 Time of Evaluation: 16:05 - Subjective Subjective: pt c/o of chest pain more now Objective - Vital Signs/Intake and Output Vital Signs (last 24 hours): Temp Pulse Resp BP Pulse Ox 98.3 F 87 20 154/82 H 99 08/05/17 08:54 08/05/17 08:54 08/05/17 08:54 08/05/17 08:54 08/05/17 08:54 Intake and Output: 08/05/17 08/05/17 06:59 18:59 Intake Total 50 Balance 50 - Medications Medications: Current Medications Amlodipine Besylate (Norvasc) 5 mg PO DAILY [facility] Last Admin: 08/05/17 09:44 Dose: 5 mg Aspirin (Aspirin Chewable) 81 mg PO DAILY [facility] Last Admin: 08/05/17 09:44 Dose: 81 mg Calcitriol (Rocaltrol) 0.25 mcg PO TTS [facility] Last Admin: 08/03/17 09:40 Dose: 0.25 mcg Calcium Carbonate (Oscal) 500 mg PO BID [facility] Last Admin: 08/05/17 09:44 Dose: 500 mg Carvedilol (Coreg) 6.25 mg PO Q12 [facility] Last Admin: 08/05/17 09:44 Dose: 6.25 mg Clonidine HCl (Catapres Tts1 0.1 Mg/24 Hr) 1 patch TD Q7D@1000 [facility] Epoetin Tom (Procrit) 4,000 unit IV TTS [facility] Last Admin: 08/03/17 11:41 Dose: 4,000 unit Ergocalciferol (Drisdol 50,000 Intl Units Cap) 1 cap PO Q7D [facility] Last Admin: 07/31/17 08:09 Dose: 1 cap Hydromorphone HCl (Dilaudid) 2 mg PO Q6H PRN PRN Reason: Pain, severe (8-10) Last Admin: 08/01/17 01:00 Dose: 2 mg Hydromorphone HCl (Dilaudid) 1 mg IVP Q4H PRN PRN Reason: Pain, moderate (4-7) Last Admin: 08/05/17 13:02 Dose: 1 mg Insulin Detemir (Levemir) 10 unit SC HS [facility] Last Admin: 08/04/17 21:41 Dose: 10 unit Insulin Human Regular (Novolin R) 0 unit SC [facility] PRN Reason: Protocol Last Admin: 08/05/17 11:30 Dose: Not Given Isosorbide Mononitrate (Imdur) 60 mg PO DAILY [facility] Last Admin: 08/05/17 09:44 Dose: 60 mg Lactulose (Enulose) 20 gm PO DAILY [facility] Last Admin: 08/05/17 09:44 Dose: 20 gm Levetiracetam (Keppra) 500 mg PO BID [facility] Last Admin: 08/05/17 09:44 Dose: 500 mg Montelukast Sodium (Singulair) 10 mg PO DAILY [facility] Last Admin: 08/05/17 09:44 Dose: 10 mg Pantoprazole Sodium (Protonix Ec Tab) 40 mg PO DAILY [facility] Last Admin: 08/05/17 09:44 Dose: 40 mg Rosuvastatin Calcium (Crestor) 10 mg PO HS [facility] Last Admin: 08/04/17 21:40 Dose: 10 mg Sertraline HCl (Zoloft) 50 mg PO DAILY [facility] Last Admin: 08/05/17 09:44 Dose: 50 mg Sevelamer Carbonate (Renvela) 800 mg PO TIDCC [facility] Last Admin: 08/05/17 12:03 Dose: 800 mg Valproate Sodium (Depakene Oral Soln) 250 mg PO QID [facility] Last Admin: 08/05/17 13:02 Dose: 250 mg Vitamin B Complex/Vit C/Folic Acid (Nephro-Courtney) 1 tab PO DAILY [facility] Last Admin: 08/05/17 12:03 Dose: 1 tab - Labs Labs: 07/30/17 11:09 07/31/17 20:49 PT 12.4 SECONDS (9.7-12.2) H 07/30/17 10:27 INR 1.1 07/30/17 10:27 APTT 29 SECONDS (21-34) 07/30/17 10:27 - Constitutional Appears: Non-toxic, In Acute Distress - Head Exam Head Exam: ATRAUMATIC - Eye Exam Eye Exam: Conjunctival injection - ENT Exam ENT Exam: Mucous Membranes Dry - GI/Abdominal Exam GI & Abdominal Exam: Normal Bowel Sounds - Rectal Exam Rectal Exam: NORMAL INSPECTION - Exam Exam: NORMAL INSPECTION External exam: NORMAL EXTERNAL EXAM - Extremities Exam Additional comments: bilateral amputation - Back Exam Back Exam: NORMAL INSPECTION - Neurological Exam Neurological Exam: Oriented x3 - Psychiatric Exam Psychiatric exam: Normal Affect - Skin Skin Exam: Intact Assessment and Plan - Assessment and Plan (Free Text) Assessment: recurent chest pain severe cad dm jth esrf Plan: ekg stat
[2017-08-05] MEDS: Insulin Detemir 100 units/ml Vial (Levemir) SC SCH (21:20)
[2017-08-06] MEDS: HYDROmorphone 1 mg/ml ISec IVP PRN ×5 (03:05→22:17)
[2017-08-06] MEDS: (Novolin R) Insulin Human Regular 100 units/ml vial SC SCH ×4 (08:17→22:08)
[2017-08-06] MEDS: Valproic Acid 250 mg/5 ml UD Cup PO SCH ×4 (10:38→22:12)
[2017-08-06] MEDS: Multivitamin Vitamin B Complex (Nephro-Vite) Tab PO SCH (10:40)
[2017-08-06] MEDS: Pantoprazole 40 mg EC Tab PO SCH (10:42)
[2017-08-06] MEDS: EPOETIN ALFA 4,000 UNIT/ML ML Dialysis IV SCH (10:42)
--- NOTE | 2017-08-06 11:11 | CP.PCM.PN ---
Subjective - Date & Time of Evaluation Date of Evaluation: 08/06/17 Time of Evaluation: 11:07 - Subjective Subjective: has chest pain bp hi rapid ht rate has rapid responsce caled in today in dialysis Objective - Vital Signs/Intake and Output Vital Signs (last 24 hours): Temp Pulse Resp BP Pulse Ox 98.1 F 74 20 123/76 95 08/06/17 07:55 08/06/17 07:55 08/06/17 07:55 08/06/17 07:55 08/06/17 07:55 - Medications Medications: Current Medications Amlodipine Besylate (Norvasc) 5 mg PO DAILY [facility] Last Admin: 08/05/17 09:44 Dose: 5 mg Aspirin (Aspirin Chewable) 81 mg PO DAILY [facility] Last Admin: 08/05/17 09:44 Dose: 81 mg Calcitriol (Rocaltrol) 0.25 mcg PO TTS [facility] Last Admin: 08/03/17 09:40 Dose: 0.25 mcg Calcium Carbonate (Oscal) 500 mg PO BID [facility] Last Admin: 08/05/17 17:17 Dose: 500 mg Carvedilol (Coreg) 6.25 mg PO Q12 [facility] Last Admin: 08/05/17 21:26 Dose: 6.25 mg Clonidine HCl (Catapres Tts1 0.1 Mg/24 Hr) 1 patch TD Q7D@1000 [facility] Epoetin Tom (Procrit) 4,000 unit IV TTS [facility] Last Admin: 08/03/17 11:41 Dose: 4,000 unit Ergocalciferol (Drisdol 50,000 Intl Units Cap) 1 cap PO Q7D [facility] Last Admin: 07/31/17 08:09 Dose: 1 cap Hydromorphone HCl (Dilaudid) 2 mg PO Q6H PRN PRN Reason: Pain, severe (8-10) Last Admin: 08/01/17 01:00 Dose: 2 mg Hydromorphone HCl (Dilaudid) 1 mg IVP Q4H PRN PRN Reason: Pain, moderate (4-7) Last Admin: 08/06/17 08:17 Dose: 1 mg Insulin Detemir (Levemir) 10 unit SC HS [facility] Last Admin: 08/05/17 21:20 Dose: Not Given Insulin Human Regular (Novolin R) 0 unit SC ACHS [facility] PRN Reason: Protocol Last Admin: 08/06/17 08:17 Dose: 2 unit Isosorbide Mononitrate (Imdur) 60 mg PO DAILY [facility] Last Admin: 08/05/17 09:44 Dose: 60 mg Lactulose (Enulose) 20 gm PO DAILY [facility] Last Admin: 08/05/17 09:44 Dose: 20 gm Levetiracetam (Keppra) 500 mg PO BID [facility] Last Admin: 08/05/17 17:17 Dose: 500 mg Montelukast Sodium (Singulair) 10 mg PO DAILY [facility] Last Admin: 08/05/17 09:44 Dose: 10 mg Pantoprazole Sodium (Protonix Ec Tab) 40 mg PO DAILY [facility] Last Admin: 08/05/17 09:44 Dose: 40 mg Rosuvastatin Calcium (Crestor) 10 mg PO HS [facility] Last Admin: 08/05/17 21:30 Dose: 10 mg Sertraline HCl (Zoloft) 50 mg PO DAILY [facility] Last Admin: 08/05/17 09:44 Dose: 50 mg Sevelamer Carbonate (Renvela) 800 mg PO TIDCC [facility] Last Admin: 08/06/17 08:17 Dose: 800 mg Valproate Sodium (Depakene Oral Soln) 250 mg PO QID [facility] Last Admin: 08/05/17 21:26 Dose: 250 mg Vitamin B Complex/Vit C/Folic Acid (Nephro-Courtney) 1 tab PO DAILY [facility] Last Admin: 08/05/17 12:03 Dose: 1 tab - Labs Labs: 07/30/17 11:09 07/31/17 20:49 PT 12.4 SECONDS (9.7-12.2) H 07/30/17 10:27 INR 1.1 07/30/17 10:27 APTT 29 SECONDS (21-34) 07/30/17 10:27 - Constitutional Appears: In Acute Distress - Head Exam Head Exam: ATRAUMATIC - Eye Exam Eye Exam: Conjunctival injection - ENT Exam ENT Exam: Mucous Membranes Moist - Respiratory Exam Respiratory Exam: Accessory Muscle Use - Cardiovascular Exam Cardiovascular Exam: Tachycardia - GI/Abdominal Exam GI & Abdominal Exam: Normal Bowel Sounds - Rectal Exam Rectal Exam: Deferred - Psychiatric Exam Additional comments: depressed - Skin Skin Exam: Pallor Assessment and Plan - Assessment and Plan (Free Text) Assessment: ac tachycardia htn chest pain dm klifilter syndrome Plan: cont as orders notify cardiology
--- NOTE | 2017-08-06 11:17 | PCM.RRT ---
<AmariTanvi - Last Filed: 08/06/17 16:08> INTERIM CONTROLLER Nurses Assessment - Situation Date: 08/06/17 Time INTERIM CONTROLLER was called: 10:50 INTERIM CONTROLLER Location:: 3D Dialysis I.Reason for INTERIM CONTROLLER - A) Acute Change in Patient: Subjective: Patient seen and examined at bedside during dialysis. Patient reported chest tightness and palpitations 20-30 minutes into dialysis. Patient did not receive BP medications today prior to dialysis. Initial vitals were 159/97 with HR 140- 150s. On the monitor appeared to be in sinus tachycardia. 12 lead EKG was ordered and appeared to be in atrial fibrillation which the patient has a history of paroxsymal afib. Cardizem 5mg IV was given and her HR decreased to 70 -90s, BP dropped to 125/78. Patient reported she felt better, slight headache. A call was placed to Cardio - regarding event. Patient is to resume BP medications after dialysis. - Constitutional Appears: In Acute Distress - Head Head Exam: NORMAL INSPECTION, NORMOCEPHALIC - Eyes Eye Exam: EOMI, Normal appearance - Respiratory Exam Respiratory Exam: Clear to Ausculation Bilateral, NORMAL BREATHING PATTERN. absent: Decreased Breath Sounds - Cardiovascular Exam Cardiovascular Exam: Tachycardia, Irregular Rhythm - GI/Abdominal Exam GI & Abdominal Exam: Soft, Normal Bowel Sounds. absent: Distended, Tenderness - Neurological Exam Neurological Exam: Alert, Awake, Oriented x3 <Cristhian Nicholson - Last Filed: 08/07/17 15:06> INTERIM CONTROLLER Nurses Assessment - Vital Signs Vital Signs: Rapid Response Vital Sign Blood Pressure 159/97 Pulse Rate 147 Respiratory Rate 22 Oxygen Saturation 100 - Vital Signs at end of INTERIM CONTROLLER Vital Signs at end of INTERIM CONTROLLER: Rapid Response End Vital Sign Blood Pressure 121/34 Pulse Rate 101 Respiratory Rate 20
[2017-08-06 11:39] LABS: BASO % 0.3 % (0.0-2.0); EOS # 0.2 K/uL (0.0-0.7); EOS % 2.5 % (0.0-4.0); HEMATOCRIT 36.6 % (35.0-51.0); LYMPH % 21.2 % (20.0-40.0); MEAN CELL VOLUME 88.3 fL (80.0-94.0); MEAN CORPUSCULAR HGB CONC 31.8 g/dL (33.0-37.0); MONO # 1.2 K/uL (0.0-0.8); MONO % 12.5 % (0.0-10.0); NRBC % 0.5 % (0.0-2.0); RED CELL DISTRIBUTION WIDTH 20.3 % (11.5-14.5); WHITE BLOOD COUNT 9.5 K/uL (4.8-10.8)
[2017-08-06 11:45] LABS: INR 1.1
[2017-08-06 12:00] LABS: ALB/GLOB RATIO 1.3 (1.0-2.1); ALKALINE PHOSPHATASE 140 U/L (38-126); ALT/SGPT 26 U/L (21-72); AST/SGOT 25 U/L (17-59); BILIRUBIN,TOTAL 0.5 mg/dL (0.2-1.3); BLOOD UREA NITROGEN 37 mg/dL (9-20); CALCIUM 8.4 mg/dl (8.6-10.4); CARBON DIOXIDE 28 mmol/L (22-30); CHLORIDE 92 mmol/L (98-107); GFR AFRICAN-AMERICAN 14; GLUCOSE,RANDOM 112 mg/dL (75-110); PHOSPHOROUS 3.3 mg/dL (2.5-4.5); POTASSIUM 4.5 mmol/L (3.6-5.2); SODIUM 132 mmol/L (132-148); TOTAL PROTEIN 6.6 g/dL (6.3-8.3)
--- NOTE | 2017-08-06 12:12 | RAD ---
HISTORY: chest pain COMPARISON: 07/30/2017 10: 10 hours FINDINGS: LUNGS: Prior coalescent pulmonary venous congestion -less. No interval consolidation. Surgical clips over lateral left lung base -similar PLEURA: Small similar bilateral pleural effusion s.. No pneumothorax apparent. Similar bilateral inferolateral pleural thickening CARDIOVASCULAR: Cardiomegaly-similar. Sternotomy and coronary artery bypass clips as before OSSEOUS STRUCTURES: No significant abnormalities. VISUALIZED UPPER ABDOMEN: Normal. OTHER FINDINGS: Right internal jugular access tunneled hemodialysis catheter -similar IMPRESSION: Interval decreased pulmonary venous congestion. Cardiomegaly and bilateral pleural effusions -similar
--- NOTE | 2017-08-06 13:30 | CP.PCM.PN ---
Subjective - Date & Time of Evaluation Date of Evaluation: 08/06/17 Time of Evaluation: 13:25 - Subjective Subjective: Events reviewed. Seen and examined with ICT BUSINESS ANALYST and nursing staff. Patient denies CHF or palpitations Objective - Vital Signs/Intake and Output Vital Signs (last 24 hours): Temp Pulse Resp BP Pulse Ox 97.6 F 146 H 18 119/85 100 08/06/17 10:25 08/06/17 12:05 08/06/17 10:25 08/06/17 12:05 08/06/17 10:25 - Medications Medications: Current Medications Amlodipine Besylate (Norvasc) 5 mg PO DAILY [facility] Last Admin: 08/05/17 09:44 Dose: 5 mg Aspirin (Aspirin Chewable) 81 mg PO DAILY [facility] Last Admin: 08/05/17 09:44 Dose: 81 mg Calcitriol (Rocaltrol) 0.25 mcg PO TTS [facility] Last Admin: 08/03/17 09:40 Dose: 0.25 mcg Calcium Carbonate (Oscal) 500 mg PO BID [facility] Last Admin: 08/05/17 17:17 Dose: 500 mg Carvedilol (Coreg) 6.25 mg PO Q12 [facility] Last Admin: 08/06/17 13:19 Dose: 6.25 mg Clonidine HCl (Catapres Tts1 0.1 Mg/24 Hr) 1 patch TD Q7D@1000 [facility] Epoetin Tom (Procrit) 4,000 unit IV TTS [facility] Last Admin: 08/03/17 11:41 Dose: 4,000 unit Ergocalciferol (Drisdol 50,000 Intl Units Cap) 1 cap PO Q7D [facility] Last Admin: 07/31/17 08:09 Dose: 1 cap Hydromorphone HCl (Dilaudid) 2 mg PO Q6H PRN PRN Reason: Pain, severe (8-10) Last Admin: 08/01/17 01:00 Dose: 2 mg Hydromorphone HCl (Dilaudid) 1 mg IVP Q4H PRN PRN Reason: Pain, moderate (4-7) Last Admin: 08/06/17 08:17 Dose: 1 mg Insulin Detemir (Levemir) 10 unit SC HS [facility] Last Admin: 08/05/17 21:20 Dose: Not Given Insulin Human Regular (Novolin R) 0 unit SC ACHS [facility] PRN Reason: Protocol Last Admin: 08/06/17 08:17 Dose: 2 unit Isosorbide Mononitrate (Imdur) 60 mg PO DAILY [facility] Last Admin: 08/05/17 09:44 Dose: 60 mg Lactulose (Enulose) 20 gm PO DAILY [facility] Last Admin: 08/05/17 09:44 Dose: 20 gm Levetiracetam (Keppra) 500 mg PO BID [facility] Last Admin: 08/05/17 17:17 Dose: 500 mg Montelukast Sodium (Singulair) 10 mg PO DAILY [facility] Last Admin: 08/05/17 09:44 Dose: 10 mg Pantoprazole Sodium (Protonix Ec Tab) 40 mg PO DAILY [facility] Last Admin: 08/05/17 09:44 Dose: 40 mg Rosuvastatin Calcium (Crestor) 10 mg PO HS [facility] Last Admin: 08/05/17 21:30 Dose: 10 mg Sertraline HCl (Zoloft) 50 mg PO DAILY [facility] Last Admin: 08/05/17 09:44 Dose: 50 mg Sevelamer Carbonate (Renvela) 800 mg PO TIDCC [facility] Last Admin: 08/06/17 08:17 Dose: 800 mg Valproate Sodium (Depakene Oral Soln) 250 mg PO QID [facility] Last Admin: 08/05/17 21:26 Dose: 250 mg Vitamin B Complex/Vit C/Folic Acid (Nephro-Courtney) 1 tab PO DAILY [facility] Last Admin: 08/05/17 12:03 Dose: 1 tab - Labs Labs: 08/06/17 11:26 08/06/17 11:26 PT 13.1 SECONDS (9.7-12.2) H 08/06/17 11:26 INR 1.1 08/06/17 11:26 APTT 31 SECONDS (21-34) 08/06/17 11:26 - Constitutional Appears: Well (Wide facies ) - Eye Exam Eye Exam: absent: Scleral icterus (Legal blindness ) - Respiratory Exam Respiratory Exam: Clear to Ausculation Bilateral, NORMAL BREATHING PATTERN - Cardiovascular Exam Cardiovascular Exam: Irregular Rhythm, RRR, +S1, +S2. absent: JVD Additional comments: Permacath; Bilateral BKA TERRELL III/ Assessment and Plan - Assessment and Plan (Free Text) Assessment: 37 y/o with transgender phenotype > DM brittle poorly controlled and hx of non-compliance > HTN is chronic and stable; with hx of non-compliance and sporadic lability > ESRD on HD with hx of non-compliance and missed sessions > PVD s/p bilateral BKA due to recurrent infections and progressive gangrene and non-healing ulcers > Legally blind Coronary artery disease s/p CABG and subsequent PCI all grafts are closed > He remains with preserved LV function and advanced diastolic dysfunction despite diffuse small vessel CAD (too small for PCI) > He is not having any angina or advanced CHF despite being off ranexa > Medical therapy remains his most important and sole treatment option at this stage. > Continue ASA as tolerated, imdur, coreg, high intensity statin; ranexa and titrate these meds as tolerated to achieve optimal BP and HR control. (<120/80 and HR <65). > current troponin elevation may be due to demand ischemia from diffuse CAD versus NSTEMI versus acute on chronic myonecrosis from microvascular disease and ESRD. * He unfortunately is not a candidate for any surgical or percutaneous therapy. * Trop trending down 0.14 > 4.7 > 2.7 * He has had hx of atrial catheter related thrombus in past ---> he was challenged with AC on many occasions but due to GI bleed deemed unsafe * he has known documented hx of parx AFLUTTER/AFIB which is now with rapid ventricular response. Catheter based therapy is not desirable given his history of RV thrombus. Increase coreg 12.5mg po BID, add amiodarone 200mg po TID x 24-48 hours then lower to BID. We can also change norvasc to cardizem as needed for rate control. It also may be desirable to d/c telemetry as long he stays asymptomatic from this arrhythmia. Please tolerate HR <180bpm as long he is hemodynamically stable. CP resolved SOB improved
--- NOTE | 2017-08-06 15:47 | CP.PCM.PN ---
Subjective - Date & Time of Evaluation Date of Evaluation: 08/06/17 Time of Evaluation: 15:45 - Subjective Subjective: Follow up Nephrology Consultation: Assessment: critical A flutter with RVR Pulmonay edema with htn emergency, Hyperkalemia, elevated troponins: improved Diabetic chronic Kidney Disease (E11.22) Hypertensive Chronic Kidney Disease (I12.0) End stage renal disease (N18.6) dependence on hemodialysis (Z99.2) (TTS) via AVF Anemia (D64.9), Hyperphosphatemia (E83.39), Secondary Hyperparathyroidism (E21.1 ), HTN (I12.0) CAD s/p CABG, diastolic CHF, pA flutter/fib, intra-cardiac thrombus, Heparin induced thrombocytopenia, hx of seizure, blindness Plan: routine dialysis today as per TTS schedule however due to rapid HR, unable to continue with HD, will plan for tomorrow if hemodynamics stable. d/w cardiology about RVR, will evaluate patient. Continue with Nephrovite 1 tab/day. d/w primary team PRBC as needed for anemia. On HANNAH as epogen, will hold as HB 11.6 Continue with phos binders home dose Continue with calcitriol BP control with meds as ordered. Patient not on RAAS skyler, BP labile Glycemic control, Dialysis consistent diet Further work up/management as per primary team Dose meds/antibiotics (if needed) for ESRD status. Avoid fleets enema/magnesium based laxatives. avoid heparin during HD due to hx of HIT. Thanks for allowing me to participate in care of your patient. Will follow patient with you. Please call if any Qs. d/w team Dr Eric Temple Office: [phone] HPI: Pt is a 36 y/o transgender M with hx of ESRD on hemodialysis (TTS) via permacath, chronic anemia, hyperphosphatemia, secondary hyperparathyroidism, Diabetes Mellitus, hypertension, CAD s/p CABG, diastolic CHF, pA flutter/fib, intra-cardiac thrombus, Heparin indueced thrombocytopenia presented with complaints of chest pain and SOB for last 1 week c/o intermittent chest pain, denies palpitation, also c/o shortness of breath. Physical Examination: seen on HD General Appearance: Comfortable, in no acute respiratory distress, co-operative . ill appearing Vitals reviewed and noted as below Head; Atraumatic, normocephalic ENT: no ulcers no thrush. Tongue is midline. Oropharynx: no rash or ulcers. EYES: Pt is blind both eyes Neck; supple no lymphadenopathy, no thyromegaly or bruit Lungs: Normal respiratory rate/effort. Breath sounds bilateral equal clear Heart: Increased rate. s1s2 normal. No rub or gallop. Extremities: no edema. No varicose veins. has b/l BKA Neurological: Patient is alert, awake and oriented to person, place and time. No focal deficit. Strength bilateral appropriate and equal Skin: Warm and dry. Normal turgor. No rash. Palpitation: Normal elasticity for age Abdomen: Abdomen is soft. Bowel sounds +. There is no abdominal tenderness, no guarding/rigidity or organomegaly Psych: limited insight and normal affect/mood MSK: no joint tenderness or swelling. Digits and nails normal, no deformity : kidney or bladder not palpable Access: permacath Labs/imaging reviewed. Past medical history, past surgical history, family history, social history, allergy reviewed and noted as below Family Hx: no hx of CKD. Non contributory Objective - Vital Signs/Intake and Output Vital Signs (last 24 hours): Temp Pulse Resp BP Pulse Ox 97.6 F 146 H 18 119/85 100 08/06/17 10:25 08/06/17 12:05 08/06/17 10:25 08/06/17 12:05 08/06/17 10:25 - Medications Medications: Current Medications Amlodipine Besylate (Norvasc) 5 mg PO DAILY [facility] Last Admin: 08/06/17 10:41 Dose: Not Given Aspirin (Aspirin Chewable) 81 mg PO DAILY [facility] Last Admin: 08/06/17 10:37 Dose: Not Given Calcitriol (Rocaltrol) 0.25 mcg PO TTS [facility] Last Admin: 08/06/17 10:43 Dose: Not Given Calcium Carbonate (Oscal) 500 mg PO BID [facility] Last Admin: 08/06/17 10:41 Dose: Not Given Carvedilol (Coreg) 6.25 mg PO Q12 [facility] Last Admin: 08/06/17 13:19 Dose: 6.25 mg Clonidine HCl (Catapres Tts1 0.1 Mg/24 Hr) 1 patch TD Q7D@1000 [facility] Ergocalciferol (Drisdol 50,000 Intl Units Cap) 1 cap PO Q7D [facility] Last Admin: 07/31/17 08:09 Dose: 1 cap Hydromorphone HCl (Dilaudid) 2 mg PO Q6H PRN PRN Reason: Pain, severe (8-10) Last Admin: 08/01/17 01:00 Dose: 2 mg Hydromorphone HCl (Dilaudid) 1 mg IVP Q4H PRN PRN Reason: Pain, moderate (4-7) Last Admin: 08/06/17 14:26 Dose: 1 mg Insulin Detemir (Levemir) 10 unit SC [facility] Last Admin: 08/05/17 21:20 Dose: Not Given Insulin Human Regular (Novolin R) 0 unit SC [facility] PRN Reason: Protocol Last Admin: 08/06/17 11:41 Dose: Not Given Isosorbide Mononitrate (Imdur) 60 mg PO DAILY [facility] Last Admin: 08/06/17 10:39 Dose: Not Given Lactulose (Enulose) 20 gm PO DAILY [facility] Last Admin: 08/06/17 10:39 Dose: Not Given Levetiracetam (Keppra) 500 mg PO BID [facility] Last Admin: 08/06/17 10:40 Dose: Not Given Montelukast Sodium (Singulair) 10 mg PO DAILY [facility] Last Admin: 08/06/17 10:43 Dose: Not Given Ondansetron HCl (Zofran Inj) 4 mg IVP Q8 PRN PRN Reason: Nausea/Vomiting Last Admin: 08/06/17 14:26 Dose: 4 mg Pantoprazole Sodium (Protonix Ec Tab) 40 mg PO DAILY [facility] Last Admin: 08/06/17 10:42 Dose: Not Given Rosuvastatin Calcium (Crestor) 10 mg PO [facility] Last Admin: 08/05/17 21:30 Dose: 10 mg Sertraline HCl (Zoloft) 50 mg PO DAILY [facility] Last Admin: 08/06/17 10:44 Dose: Not Given Sevelamer Carbonate (Renvela) 800 mg PO TIDCC [facility] Last Admin: 08/06/17 12:43 Dose: Not Given Valproate Sodium (Depakene Oral Soln) 250 mg PO QID [facility] Last Admin: 08/06/17 13:33 Dose: 250 mg Vitamin B Complex/Vit C/Folic Acid (Nephro-Courtney) 1 tab PO DAILY [facility] Last Admin: 08/06/17 10:40 Dose: Not Given - Labs Labs: 08/06/17 11:26 08/06/17 11:26 PT 13.1 SECONDS (9.7-12.2) H 08/06/17 11:26 INR 1.1 08/06/17 11:26 APTT 31 SECONDS (21-34) 08/06/17 11:26
--- NOTE | 2017-08-06 16:38 | CP.PCM.PN ---
Subjective - Date & Time of Evaluation Date of Evaluation: 08/06/17 Time of Evaluation: 13:00 - Subjective Subjective: STORE GROUP MANAGER NOTES patient seen today after HD , denies any chest pain, sob, headache, N/V/D, c/ o palpitations s/p ELECTRICAL MANUFACTURING ENGINEER during HD and received 5 mg of cardizem for tachycardia of 150- 160 on monitor sinus tachycardia hr 140-160. bp stable - 138/94 cardizem 5 mg given D/w Dr. Michaels , recommends to give amiodorone and cardizem an d incr. dose of coreg seen by Dr. Michaels , recommends to do medical management and HR UP TO 160 OK . if patient hemodynamically stable Objective - Vital Signs/Intake and Output Vital Signs (last 24 hours): Temp Pulse Resp BP Pulse Ox 97.6 F 146 H 18 119/85 100 08/06/17 10:25 08/06/17 12:05 08/06/17 10:25 08/06/17 12:05 08/06/17 10:25 Intake and Output: 08/06/17 08/06/17 06:59 18:59 Intake Total 120 Balance 120 - Medications Medications: Current Medications Amiodarone HCl (Cordarone) 200 mg PO TID [facility] Aspirin (Aspirin Chewable) 81 mg PO DAILY [facility] Last Admin: 08/06/17 10:37 Dose: Not Given Calcitriol (Rocaltrol) 0.25 mcg PO TTS [facility] Last Admin: 08/06/17 10:43 Dose: Not Given Calcium Carbonate (Oscal) 500 mg PO BID [facility] Last Admin: 08/06/17 10:41 Dose: Not Given Carvedilol (Coreg) 12.5 mg PO Q12 [facility] Clonidine HCl (Catapres Tts1 0.1 Mg/24 Hr) 1 patch TD Q7D@1000 [facility] Diltiazem HCl (Cardizem) 30 mg PO Q8 [facility] Ergocalciferol (Drisdol 50,000 Intl Units Cap) 1 cap PO Q7D [facility] Last Admin: 07/31/17 08:09 Dose: 1 cap Hydromorphone HCl (Dilaudid) 2 mg PO Q6H PRN PRN Reason: Pain, severe (8-10) Last Admin: 08/01/17 01:00 Dose: 2 mg Hydromorphone HCl (Dilaudid) 1 mg IVP Q4H PRN PRN Reason: Pain, moderate (4-7) Last Admin: 08/06/17 14:26 Dose: 1 mg Insulin Detemir (Levemir) 10 unit SC [facility] Last Admin: 08/05/17 21:20 Dose: Not Given Insulin Human Regular (Novolin R) 0 unit SC [facility] PRN Reason: Protocol Last Admin: 08/06/17 11:41 Dose: Not Given Isosorbide Mononitrate (Imdur) 60 mg PO DAILY [facility] Last Admin: 08/06/17 10:39 Dose: Not Given Lactulose (Enulose) 20 gm PO DAILY [facility] Last Admin: 08/06/17 10:39 Dose: Not Given Levetiracetam (Keppra) 500 mg PO BID [facility] Last Admin: 08/06/17 10:40 Dose: Not Given Montelukast Sodium (Singulair) 10 mg PO DAILY [facility] Last Admin: 08/06/17 10:43 Dose: Not Given Ondansetron HCl (Zofran Inj) 4 mg IVP Q8 PRN PRN Reason: Nausea/Vomiting Last Admin: 08/06/17 14:26 Dose: 4 mg Pantoprazole Sodium (Protonix Ec Tab) 40 mg PO DAILY [facility] Last Admin: 08/06/17 10:42 Dose: Not Given Rosuvastatin Calcium (Crestor) 10 mg PO HS [facility] Last Admin: 08/05/17 21:30 Dose: 10 mg Sertraline HCl (Zoloft) 50 mg PO DAILY [facility] Last Admin: 08/06/17 10:44 Dose: Not Given Sevelamer Carbonate (Renvela) 800 mg PO TIDCC [facility] Last Admin: 08/06/17 12:43 Dose: Not Given Valproate Sodium (Depakene Oral Soln) 250 mg PO QID [facility] Last Admin: 08/06/17 13:33 Dose: 250 mg Vitamin B Complex/Vit C/Folic Acid (Nephro-Courtney) 1 tab PO DAILY [facility] Last Admin: 08/06/17 10:40 Dose: Not Given - Labs Labs: 08/06/17 11:26 08/06/17 11:26 PT 13.1 SECONDS (9.7-12.2) H 08/06/17 11:26 INR 1.1 08/06/17 11:26 APTT 31 SECONDS (21-34) 08/06/17 11:26
--- NOTE | 2017-08-06 21:50 | CARD ---
APPROVED REPORT EKG Measurement Heart [id number] <Conclusion> Normal sinus rhythm ST & T wave abnormality, consider lateral ischemia Abnormal ECG
[2017-08-06] MEDS: Insulin Detemir 100 units/ml Vial (Levemir) SC SCH (22:08)
[2017-08-07] MEDS: HYDROmorphone 1 mg/ml ISec IVP PRN ×4 (04:17→19:51)
[2017-08-07] MEDS: Ergocalciferol 50,000 Intl Units Cap PO SCH (07:19)
[2017-08-07] MEDS: (Novolin R) Insulin Human Regular 100 units/ml vial SC SCH ×4 (07:33→21:52)
[2017-08-07] MEDS: Valproic Acid 250 mg/5 ml UD Cup PO SCH ×4 (10:20→22:16)
[2017-08-07] MEDS: Pantoprazole 40 mg EC Tab PO SCH (10:21)
[2017-08-07] MEDS: Multivitamin Vitamin B Complex (Nephro-Vite) Tab PO SCH (10:21)
--- NOTE | 2017-08-07 11:03 | CP.PCM.PN ---
Subjective - Date & Time of Evaluation Date of Evaluation: 08/07/17 Time of Evaluation: 11:02 - Subjective Subjective: Follow up Nephrology Consultation: Assessment: stable A flutter with RVR: improved Pulmonay edema with htn emergency, Hyperkalemia, elevated troponins: improved Diabetic chronic Kidney Disease (E11.22) Hypertensive Chronic Kidney Disease (I12.0) End stage renal disease (N18.6) dependence on hemodialysis (Z99.2) (TTS) via AVF Anemia (D64.9), Hyperphosphatemia (E83.39), Secondary Hyperparathyroidism (E21.1 ), HTN (I12.0) CAD s/p CABG, diastolic CHF, pA flutter/fib, intra-cardiac thrombus, Heparin induced thrombocytopenia, hx of seizure, blindness Plan: routine dialysis tomorrow as per TTS schedule. extra HD today as unable to complete yesterday Continue with Nephrovite 1 tab/day. PRBC as needed for anemia. On HANNAH as epogen, will hold as last Hb 11.6 Continue with phos binders home dose Continue with calcitriol BP control with meds as ordered. Patient not on RAAS skyler, BP labile Glycemic control, Dialysis consistent diet Further work up/management as per primary team Dose meds/antibiotics (if needed) for ESRD status. Avoid fleets enema/magnesium based laxatives. avoid heparin during HD due to hx of HIT. Thanks for allowing me to participate in care of your patient. Will follow patient with you. Please call if any Qs. Dr Eric Temple Office: [phone] HPI: Pt is a 36 y/o transgender M with hx of ESRD on hemodialysis (TTS) via permacath, chronic anemia, hyperphosphatemia, secondary hyperparathyroidism, Diabetes Mellitus, hypertension, CAD s/p CABG, diastolic CHF, pA flutter/fib, intra-cardiac thrombus, Heparin indueced thrombocytopenia presented with complaints of chest pain and SOB for last 1 week c/o intermittent chest pain which is improved, denies palpitation, denies shortness of breath. Physical Examination: seen on HD General Appearance: Comfortable, in no acute respiratory distress, co-operative .better appearing Vitals reviewed and noted as below Head; Atraumatic, normocephalic ENT: no ulcers no thrush. Tongue is midline. Oropharynx: no rash or ulcers. EYES: Pt is blind both eyes Neck; supple no lymphadenopathy, no thyromegaly or bruit Lungs: Normal respiratory rate/effort. Breath sounds bilateral equal clear Heart: normal rate. s1s2 normal. No rub or gallop. Extremities: no edema. No varicose veins. has b/l BKA Neurological: Patient is alert, awake and oriented to person, place and time. No focal deficit. Strength bilateral appropriate and equal Skin: Warm and dry. Normal turgor. No rash. Palpitation: Normal elasticity for age Abdomen: Abdomen is soft. Bowel sounds +. There is no abdominal tenderness, no guarding/rigidity or organomegaly Psych: limited insight and normal affect/mood MSK: no joint tenderness or swelling. Digits and nails normal, no deformity : kidney or bladder not palpable Access: permacath Labs/imaging reviewed. Past medical history, past surgical history, family history, social history, allergy reviewed and noted as below Family Hx: no hx of CKD. Non contributory Objective - Vital Signs/Intake and Output Vital Signs (last 24 hours): Temp Pulse Resp BP Pulse Ox 98.5 F 74 18 117/67 98 08/07/17 07:58 08/07/17 07:58 08/07/17 07:58 08/07/17 07:58 08/07/17 07:58 - Medications Medications: Current Medications Amiodarone HCl (Cordarone) 200 mg PO BID [facility] Last Admin: 08/07/17 10:20 Dose: Not Given Aspirin (Aspirin Chewable) 81 mg PO DAILY [facility] Last Admin: 08/07/17 10:20 Dose: Not Given Calcitriol (Rocaltrol) 0.25 mcg PO TTS [facility] Last Admin: 08/06/17 10:43 Dose: Not Given Calcium Carbonate (Oscal) 500 mg PO BID [facility] Last Admin: 08/07/17 10:21 Dose: Not Given Carvedilol (Coreg) 12.5 mg PO Q12 [facility] Last Admin: 08/07/17 10:20 Dose: Not Given Clonidine HCl (Catapres Tts1 0.1 Mg/24 Hr) 1 patch TD Q7D@1000 [facility] Diltiazem HCl (Cardizem) 30 mg PO Q8 [facility] Last Admin: 08/07/17 06:02 Dose: 30 mg Ergocalciferol (Drisdol 50,000 Intl Units Cap) 1 cap PO Q7D [facility] Last Admin: 08/07/17 07:19 Dose: 1 cap Hydromorphone HCl (Dilaudid) 2 mg PO Q6H PRN PRN Reason: Pain, severe (8-10) Last Admin: 08/01/17 01:00 Dose: 2 mg Hydromorphone HCl (Dilaudid) 1 mg IVP Q4H PRN PRN Reason: Pain, moderate (4-7) Last Admin: 08/07/17 08:45 Dose: 1 mg Insulin Detemir (Levemir) 10 unit SC [facility] Last Admin: 08/06/17 22:08 Dose: Not Given Insulin Human Regular (Novolin R) 0 unit SC [facility] PRN Reason: Protocol Last Admin: 08/07/17 07:33 Dose: Not Given Isosorbide Mononitrate (Imdur) 60 mg PO DAILY [facility] Last Admin: 08/07/17 10:21 Dose: Not Given Lactulose (Enulose) 20 gm PO DAILY [facility] Last Admin: 08/07/17 10:21 Dose: Not Given Levetiracetam (Keppra) 500 mg PO BID [facility] Last Admin: 08/07/17 10:21 Dose: Not Given Montelukast Sodium (Singulair) 10 mg PO DAILY [facility] Last Admin: 08/07/17 10:21 Dose: Not Given Ondansetron HCl (Zofran Inj) 4 mg IVP Q8 PRN PRN Reason: Nausea/Vomiting Last Admin: 08/06/17 14:26 Dose: 4 mg Pantoprazole Sodium (Protonix Ec Tab) 40 mg PO DAILY [facility] Last Admin: 08/07/17 10:21 Dose: Not Given Rosuvastatin Calcium (Crestor) 10 mg PO HS [facility] Last Admin: 08/06/17 22:12 Dose: 10 mg Sertraline HCl (Zoloft) 50 mg PO DAILY [facility] Last Admin: 08/07/17 10:21 Dose: Not Given Sevelamer Carbonate (Renvela) 800 mg PO TIDCC [facility] Last Admin: 08/07/17 08:19 Dose: 800 mg Valproate Sodium (Depakene Oral Soln) 250 mg PO QID [facility] Last Admin: 08/07/17 10:20 Dose: Not Given Vitamin B Complex/Vit C/Folic Acid (Nephro-Courtney) 1 tab PO DAILY [facility] Last Admin: 08/07/17 10:21 Dose: Not Given - Labs Labs: 08/06/17 11:26 08/06/17 11:26 PT 13.1 SECONDS (9.7-12.2) H 08/06/17 11:26 INR 1.1 08/06/17 11:26 APTT 31 SECONDS (21-34) 08/06/17 11:26
--- NOTE | 2017-08-07 12:14 | CP.PCM.PN ---
Subjective - Date & Time of Evaluation Date of Evaluation: 08/07/17 Time of Evaluation: 12:12 - Subjective Subjective: having dialysis now feels beter less chest pain no tachycardia breathing normal Objective - Vital Signs/Intake and Output Vital Signs (last 24 hours): Temp Pulse Resp BP Pulse Ox 97.7 F 64 20 168/85 H 100 08/07/17 10:30 08/07/17 12:00 08/07/17 10:30 08/07/17 12:00 08/07/17 10:30 - Medications Medications: Current Medications Amiodarone HCl (Cordarone) 200 mg PO BID [facility] Last Admin: 08/07/17 10:20 Dose: Not Given Aspirin (Aspirin Chewable) 81 mg PO DAILY [facility] Last Admin: 08/07/17 10:20 Dose: Not Given Calcitriol (Rocaltrol) 0.25 mcg PO TTS [facility] Last Admin: 08/06/17 10:43 Dose: Not Given Calcium Carbonate (Oscal) 500 mg PO BID [facility] Last Admin: 08/07/17 10:21 Dose: Not Given Carvedilol (Coreg) 12.5 mg PO Q12 [facility] Last Admin: 08/07/17 10:20 Dose: Not Given Clonidine HCl (Catapres Tts1 0.1 Mg/24 Hr) 1 patch TD Q7D@1000 [facility] Diltiazem HCl (Cardizem) 30 mg PO Q8 [facility] Last Admin: 08/07/17 06:02 Dose: 30 mg Ergocalciferol (Drisdol 50,000 Intl Units Cap) 1 cap PO Q7D [facility] Last Admin: 08/07/17 07:19 Dose: 1 cap Hydromorphone HCl (Dilaudid) 2 mg PO Q6H PRN PRN Reason: Pain, severe (8-10) Last Admin: 08/01/17 01:00 Dose: 2 mg Hydromorphone HCl (Dilaudid) 1 mg IVP Q4H PRN PRN Reason: Pain, moderate (4-7) Last Admin: 08/07/17 08:45 Dose: 1 mg Insulin Detemir (Levemir) 10 unit SC HS [facility] Last Admin: 08/06/17 22:08 Dose: Not Given Insulin Human Regular (Novolin R) 0 unit SC ACHS [facility] PRN Reason: Protocol Last Admin: 08/07/17 07:33 Dose: Not Given Isosorbide Mononitrate (Imdur) 60 mg PO DAILY [facility] Last Admin: 08/07/17 10:21 Dose: Not Given Lactulose (Enulose) 20 gm PO DAILY [facility] Last Admin: 08/07/17 10:21 Dose: Not Given Levetiracetam (Keppra) 500 mg PO BID [facility] Last Admin: 08/07/17 10:21 Dose: Not Given Montelukast Sodium (Singulair) 10 mg PO DAILY [facility] Last Admin: 08/07/17 10:21 Dose: Not Given Ondansetron HCl (Zofran Inj) 4 mg IVP Q8 PRN PRN Reason: Nausea/Vomiting Last Admin: 08/06/17 14:26 Dose: 4 mg Pantoprazole Sodium (Protonix Ec Tab) 40 mg PO DAILY [facility] Last Admin: 08/07/17 10:21 Dose: Not Given Rosuvastatin Calcium (Crestor) 10 mg PO HS [facility] Last Admin: 08/06/17 22:12 Dose: 10 mg Sertraline HCl (Zoloft) 50 mg PO DAILY [facility] Last Admin: 08/07/17 10:21 Dose: Not Given Sevelamer Carbonate (Renvela) 800 mg PO TIDCC [facility] Last Admin: 08/07/17 08:19 Dose: 800 mg Valproate Sodium (Depakene Oral Soln) 250 mg PO QID [facility] Last Admin: 08/07/17 10:20 Dose: Not Given Vitamin B Complex/Vit C/Folic Acid (Nephro-Courtney) 1 tab PO DAILY [facility] Last Admin: 08/07/17 10:21 Dose: Not Given - Labs Labs: 08/06/17 11:26 08/06/17 11:26 PT 13.1 SECONDS (9.7-12.2) H 08/06/17 11:26 INR 1.1 08/06/17 11:26 APTT 31 SECONDS (21-34) 08/06/17 11:26 - Constitutional Appears: Non-toxic - Head Exam Head Exam: ATRAUMATIC, NORMAL INSPECTION - Eye Exam Eye Exam: Conjunctival injection - ENT Exam ENT Exam: Mucous Membranes Dry - Neck Exam Neck Exam: Full ROM - Respiratory Exam Respiratory Exam: Decreased Breath Sounds - Cardiovascular Exam Cardiovascular Exam: REGULAR RHYTHM - GI/Abdominal Exam GI & Abdominal Exam: Normal Bowel Sounds - Rectal Exam Rectal Exam: NORMAL INSPECTION - Back Exam Back Exam: NORMAL INSPECTION - Psychiatric Exam Psychiatric exam: Normal Affect - Skin Skin Exam: Pallor Assessment and Plan - Assessment and Plan (Free Text) Assessment: chest pain cad chf dm esrf htn arrythmia Plan: cont current treatment
[2017-08-07] MEDS: Insulin Detemir 100 units/ml Vial (Levemir) SC SCH (22:17)
[2017-08-08] MEDS: HYDROmorphone 1 mg/ml ISec IVP PRN ×4 (00:27→22:36)
--- NOTE | 2017-08-08 07:45 | CP.PCM.PN ---
Subjective - Date & Time of Evaluation Date of Evaluation: 08/07/17 Time of Evaluation: 13:30 - Subjective Subjective: No Acute events Objective - Vital Signs/Intake and Output Vital Signs (last 24 hours): Temp Pulse Resp BP Pulse Ox 98.3 F 76 20 161/78 H 100 08/07/17 23:50 08/08/17 05:24 08/07/17 23:50 08/08/17 05:24 08/07/17 23:50 - Medications Medications: Current Medications Amiodarone HCl (Cordarone) 200 mg PO BID [facility] Last Admin: 08/07/17 18:00 Dose: 200 mg Aspirin (Aspirin Chewable) 81 mg PO DAILY [facility] Last Admin: 08/07/17 10:20 Dose: Not Given Calcitriol (Rocaltrol) 0.25 mcg PO TTS [facility] Last Admin: 08/06/17 10:43 Dose: Not Given Calcium Carbonate (Oscal) 500 mg PO BID [facility] Last Admin: 08/07/17 18:00 Dose: 500 mg Carvedilol (Coreg) 12.5 mg PO Q12 [facility] Last Admin: 08/07/17 22:16 Dose: 12.5 mg Clonidine HCl (Catapres Tts1 0.1 Mg/24 Hr) 1 patch TD Q7D@1000 [facility] Diltiazem HCl (Cardizem) 30 mg PO Q8 [facility] Last Admin: 08/08/17 05:24 Dose: 30 mg Ergocalciferol (Drisdol 50,000 Intl Units Cap) 1 cap PO Q7D [facility] Last Admin: 08/07/17 07:19 Dose: 1 cap Hydromorphone HCl (Dilaudid) 2 mg PO Q6H PRN PRN Reason: Pain, severe (8-10) Last Admin: 08/01/17 01:00 Dose: 2 mg Hydromorphone HCl (Dilaudid) 1 mg IVP Q4H PRN PRN Reason: Pain, moderate (4-7) Last Admin: 08/08/17 05:17 Dose: 1 mg Insulin Detemir (Levemir) 10 unit SC HS [facility] Last Admin: 08/07/17 22:17 Dose: 10 unit Insulin Human Regular (Novolin R) 0 unit SC ACHS [facility] PRN Reason: Protocol Last Admin: 08/07/17 21:52 Dose: Not Given Isosorbide Mononitrate (Imdur) 60 mg PO DAILY [facility] Last Admin: 08/07/17 10:21 Dose: Not Given Lactulose (Enulose) 20 gm PO DAILY [facility] Last Admin: 08/07/17 10:21 Dose: Not Given Levetiracetam (Keppra) 500 mg PO BID [facility] Last Admin: 08/07/17 18:00 Dose: 500 mg Montelukast Sodium (Singulair) 10 mg PO DAILY [facility] Last Admin: 08/07/17 10:21 Dose: Not Given Ondansetron HCl (Zofran Inj) 4 mg IVP Q8 PRN PRN Reason: Nausea/Vomiting Last Admin: 08/06/17 14:26 Dose: 4 mg Pantoprazole Sodium (Protonix Ec Tab) 40 mg PO DAILY [facility] Last Admin: 08/07/17 10:21 Dose: Not Given Rosuvastatin Calcium (Crestor) 10 mg PO HS [facility] Last Admin: 08/07/17 22:17 Dose: 10 mg Sertraline HCl (Zoloft) 50 mg PO DAILY [facility] Last Admin: 08/07/17 10:21 Dose: Not Given Sevelamer Carbonate (Renvela) 800 mg PO TIDCC [facility] Last Admin: 08/07/17 18:00 Dose: 800 mg Valproate Sodium (Depakene Oral Soln) 250 mg PO QID [facility] Last Admin: 08/07/17 22:16 Dose: 250 mg Vitamin B Complex/Vit C/Folic Acid (Nephro-Courtney) 1 tab PO DAILY [facility] Last Admin: 08/07/17 10:21 Dose: Not Given - Labs Labs: 08/06/17 11:26 08/06/17 11:26 PT 13.1 SECONDS (9.7-12.2) H 08/06/17 11:26 INR 1.1 08/06/17 11:26 APTT 31 SECONDS (21-34) 08/06/17 11:26
[2017-08-08] MEDS: (Novolin R) Insulin Human Regular 100 units/ml vial SC SCH ×3 (08:02→19:49)
[2017-08-08] MEDS: Multivitamin Vitamin B Complex (Nephro-Vite) Tab PO SCH (10:04)
[2017-08-08] MEDS: Pantoprazole 40 mg EC Tab PO SCH (10:05)
[2017-08-08] MEDS: Valproic Acid 250 mg/5 ml UD Cup PO SCH ×4 (10:05→21:34)
--- NOTE | 2017-08-08 14:53 | CP.PCM.PN ---
Subjective - Date & Time of Evaluation Date of Evaluation: 08/08/17 Time of Evaluation: 14:52 - Subjective Subjective: Follow up Nephrology Consultation: Assessment: stable A flutter with RVR: improved Pulmonay edema with htn emergency, Hyperkalemia, elevated troponins: improved Diabetic chronic Kidney Disease (E11.22) Hypertensive Chronic Kidney Disease (I12.0) End stage renal disease (N18.6) dependence on hemodialysis (Z99.2) (TTS) via AVF Anemia (D64.9), Hyperphosphatemia (E83.39), Secondary Hyperparathyroidism (E21.1 ), HTN (I12.0) CAD s/p CABG, diastolic CHF, pA flutter/fib, intra-cardiac thrombus, Heparin induced thrombocytopenia, hx of seizure, blindness Plan: routine dialysis today as per TTS schedule. Continue with Nephrovite 1 tab/day. PRBC as needed for anemia. On HANNAH as epogen, will hold as last Hb 11.6 Continue with phos binders home dose Continue with calcitriol BP control with meds as ordered. Patient not on RAAS skyler, BP labile Glycemic control, Dialysis consistent diet Further work up/management as per primary team Dose meds/antibiotics (if needed) for ESRD status. Avoid fleets enema/magnesium based laxatives. avoid heparin during HD due to hx of HIT. d/c planning as per primary team. stable from renal perspective Thanks for allowing me to participate in care of your patient. Will follow patient with you. Please call if any Qs. Dr Eric Temple Office: [phone] HPI: Pt is a 36 y/o transgender M with hx of ESRD on hemodialysis (TTS) via permacath, chronic anemia, hyperphosphatemia, secondary hyperparathyroidism, Diabetes Mellitus, hypertension, CAD s/p CABG, diastolic CHF, pA flutter/fib, intra-cardiac thrombus, Heparin indueced thrombocytopenia presented with complaints of chest pain and SOB for last 1 week c/o intermittent chest pain which is improved, denies palpitation, denies shortness of breath. Physical Examination: seen on HD General Appearance: Comfortable, in no acute respiratory distress, co-operative .better appearing Vitals reviewed and noted as below Head; Atraumatic, normocephalic ENT: no ulcers no thrush. Tongue is midline. Oropharynx: no rash or ulcers. EYES: Pt is blind both eyes Neck; supple no lymphadenopathy, no thyromegaly or bruit Lungs: Normal respiratory rate/effort. Breath sounds bilateral equal clear Heart: normal rate. s1s2 normal. No rub or gallop. Extremities: no edema. No varicose veins. has b/l BKA Neurological: Patient is alert, awake and oriented to person, place and time. No focal deficit. Strength bilateral appropriate and equal Skin: Warm and dry. Normal turgor. No rash. Palpitation: Normal elasticity for age Abdomen: Abdomen is soft. Bowel sounds +. There is no abdominal tenderness, no guarding/rigidity or organomegaly Psych: limited insight and normal affect/mood MSK: no joint tenderness or swelling. Digits and nails normal, no deformity : kidney or bladder not palpable Access: permacath Labs/imaging reviewed. Past medical history, past surgical history, family history, social history, allergy reviewed and noted as below Family Hx: no hx of CKD. Non contributory Objective - Vital Signs/Intake and Output Vital Signs (last 24 hours): Temp Pulse Resp BP Pulse Ox 97.8 F 75 16 98/55 L 96 08/08/17 13:10 08/08/17 13:10 08/08/17 13:10 08/08/17 14:10 08/08/17 08:20 - Medications Medications: Current Medications Amiodarone HCl (Cordarone) 200 mg PO BID [facility] Last Admin: 08/08/17 10:04 Dose: 200 mg Aspirin (Aspirin Chewable) 81 mg PO DAILY [facility] Last Admin: 08/08/17 10:05 Dose: 81 mg Calcitriol (Rocaltrol) 0.25 mcg PO TTS [facility] Last Admin: 08/08/17 10:04 Dose: 0.25 mcg Calcium Carbonate (Oscal) 500 mg PO BID [facility] Last Admin: 08/08/17 10:04 Dose: 500 mg Carvedilol (Coreg) 12.5 mg PO Q12 [facility] Last Admin: 08/08/17 10:04 Dose: 12.5 mg Clonidine HCl (Catapres Tts1 0.1 Mg/24 Hr) 1 patch TD Q7D@1000 [facility] Last Admin: 08/08/17 10:03 Dose: 1 patch Diltiazem HCl (Cardizem) 30 mg PO Q8 [facility] Last Admin: 08/08/17 05:24 Dose: 30 mg Ergocalciferol (Drisdol 50,000 Intl Units Cap) 1 cap PO Q7D [facility] Last Admin: 08/07/17 07:19 Dose: 1 cap Hydromorphone HCl (Dilaudid) 2 mg PO Q6H PRN PRN Reason: Pain, severe (8-10) Last Admin: 08/01/17 01:00 Dose: 2 mg Hydromorphone HCl (Dilaudid) 1 mg IVP Q4H PRN PRN Reason: Pain, moderate (4-7) Last Admin: 08/08/17 09:59 Dose: 1 mg Insulin Detemir (Levemir) 10 unit SC HS [facility] Last Admin: 08/07/17 22:17 Dose: 10 unit Insulin Human Regular (Novolin R) 0 unit SC ACHS [facility] PRN Reason: Protocol Last Admin: 08/08/17 11:46 Dose: Not Given Isosorbide Mononitrate (Imdur) 60 mg PO DAILY [facility] Last Admin: 08/08/17 10:04 Dose: 60 mg Lactulose (Enulose) 20 gm PO DAILY [facility] Last Admin: 08/08/17 10:05 Dose: 20 gm Levetiracetam (Keppra) 500 mg PO BID [facility] Last Admin: 08/08/17 10:04 Dose: 500 mg Montelukast Sodium (Singulair) 10 mg PO DAILY [facility] Last Admin: 08/08/17 10:04 Dose: 10 mg Ondansetron HCl (Zofran Inj) 4 mg IVP Q8 PRN PRN Reason: Nausea/Vomiting Last Admin: 08/06/17 14:26 Dose: 4 mg Pantoprazole Sodium (Protonix Ec Tab) 40 mg PO DAILY [facility] Last Admin: 08/08/17 10:05 Dose: 40 mg Rosuvastatin Calcium (Crestor) 10 mg PO HS [facility] Last Admin: 08/07/17 22:17 Dose: 10 mg Sertraline HCl (Zoloft) 50 mg PO DAILY [facility] Last Admin: 08/08/17 10:04 Dose: 50 mg Sevelamer Carbonate (Renvela) 800 mg PO TIDCC [facility] Last Admin: 08/08/17 08:05 Dose: 800 mg Valproate Sodium (Depakene Oral Soln) 250 mg PO QID [facility] Last Admin: 08/08/17 10:05 Dose: 250 mg Vitamin B Complex/Vit C/Folic Acid (Nephro-Courtney) 1 tab PO DAILY [facility] Last Admin: 08/08/17 10:04 Dose: 1 tab - Labs Labs: 08/06/17 11:26 08/06/17 11:26 PT 13.1 SECONDS (9.7-12.2) H 08/06/17 11:26 INR 1.1 08/06/17 11:26 APTT 31 SECONDS (21-34) 08/06/17 11:26
[2017-08-08] MEDS: Insulin Detemir 100 units/ml Vial (Levemir) SC SCH (21:34)
[2017-08-09] MEDS: HYDROmorphone 1 mg/ml ISec IVP PRN ×5 (02:39→20:05)
[2017-08-09] MEDS: (Novolin R) Insulin Human Regular 100 units/ml vial SC SCH ×4 (08:00→21:59)
[2017-08-09] MEDS: Valproic Acid 250 mg/5 ml UD Cup PO SCH ×4 (10:10→22:03)
[2017-08-09] MEDS: Multivitamin Vitamin B Complex (Nephro-Vite) Tab PO SCH (10:11)
[2017-08-09] MEDS: Pantoprazole 40 mg EC Tab PO SCH (10:11)
--- NOTE | 2017-08-09 10:32 | CP.PCM.PN ---
Subjective - Date & Time of Evaluation Date of Evaluation: 08/09/17 Time of Evaluation: 10:29 - Subjective Subjective: pt has intermetant chest pain fees pressure chest sob Objective - Vital Signs/Intake and Output Vital Signs (last 24 hours): Temp Pulse Resp BP Pulse Ox 98.2 F 121 H 20 132/80 100 08/09/17 08:05 08/09/17 08:05 08/09/17 08:05 08/09/17 10:10 08/09/17 08:05 - Medications Medications: Current Medications Amiodarone HCl (Cordarone) 200 mg PO BID [facility] Last Admin: 08/09/17 10:11 Dose: 200 mg Aspirin (Aspirin Chewable) 81 mg PO DAILY [facility] Last Admin: 08/08/17 10:05 Dose: 81 mg Calcitriol (Rocaltrol) 0.25 mcg PO TTS [facility] Last Admin: 08/08/17 10:04 Dose: 0.25 mcg Calcium Carbonate (Oscal) 500 mg PO BID [facility] Last Admin: 08/09/17 10:11 Dose: 500 mg Carvedilol (Coreg) 12.5 mg PO Q12 [facility] Last Admin: 08/09/17 10:10 Dose: 12.5 mg Clonidine HCl (Catapres Tts1 0.1 Mg/24 Hr) 1 patch TD Q7D@1000 [facility] Last Admin: 08/08/17 10:03 Dose: 1 patch Diltiazem HCl (Cardizem) 30 mg PO Q8 [facility] Last Admin: 08/09/17 05:27 Dose: 30 mg Ergocalciferol (Drisdol 50,000 Intl Units Cap) 1 cap PO Q7D [facility] Last Admin: 08/07/17 07:19 Dose: 1 cap Hydromorphone HCl (Dilaudid) 2 mg PO Q6H PRN PRN Reason: Pain, severe (8-10) Last Admin: 08/01/17 01:00 Dose: 2 mg Hydromorphone HCl (Dilaudid) 1 mg IVP Q4H PRN PRN Reason: Pain, moderate (4-7) Last Admin: 08/09/17 06:49 Dose: 1 mg Insulin Detemir (Levemir) 10 unit SC HS [facility] Last Admin: 08/08/17 21:34 Dose: 10 unit Insulin Human Regular (Novolin R) 0 unit SC ACHS [facility] PRN Reason: Protocol Last Admin: 08/09/17 08:00 Dose: 2 unit Isosorbide Mononitrate (Imdur) 60 mg PO DAILY [facility] Last Admin: 08/09/17 10:10 Dose: 60 mg Lactulose (Enulose) 20 gm PO DAILY [facility] Last Admin: 08/09/17 10:10 Dose: 20 gm Levetiracetam (Keppra) 500 mg PO BID [facility] Last Admin: 08/09/17 10:11 Dose: 500 mg Montelukast Sodium (Singulair) 10 mg PO DAILY [facility] Last Admin: 08/09/17 10:11 Dose: 10 mg Ondansetron HCl (Zofran Inj) 4 mg IVP Q8 PRN PRN Reason: Nausea/Vomiting Last Admin: 08/06/17 14:26 Dose: 4 mg Pantoprazole Sodium (Protonix Ec Tab) 40 mg PO DAILY [facility] Last Admin: 08/09/17 10:11 Dose: 40 mg Rosuvastatin Calcium (Crestor) 10 mg PO HS [facility] Last Admin: 08/08/17 21:34 Dose: 10 mg Sertraline HCl (Zoloft) 50 mg PO DAILY [facility] Last Admin: 08/09/17 10:10 Dose: 50 mg Sevelamer Carbonate (Renvela) 800 mg PO TIDCC [facility] Last Admin: 08/09/17 08:11 Dose: 800 mg Valproate Sodium (Depakene Oral Soln) 250 mg PO QID [facility] Last Admin: 08/09/17 10:10 Dose: 250 mg Vitamin B Complex/Vit C/Folic Acid (Nephro-Courtney) 1 tab PO DAILY [facility] Last Admin: 08/09/17 10:11 Dose: 1 tab - Labs Labs: 08/06/17 11:26 08/06/17 11:26 PT 13.1 SECONDS (9.7-12.2) H 08/06/17 11:26 INR 1.1 08/06/17 11:26 APTT 31 SECONDS (21-34) 08/06/17 11:26 - Constitutional Appears: In Acute Distress - Head Exam Head Exam: ATRAUMATIC - Eye Exam Eye Exam: Conjunctival injection - ENT Exam ENT Exam: Normal Exam - Neck Exam Neck Exam: Full ROM - Respiratory Exam Respiratory Exam: Decreased Breath Sounds - Cardiovascular Exam Cardiovascular Exam: Tachycardia - GI/Abdominal Exam GI & Abdominal Exam: Normal Bowel Sounds - Rectal Exam Rectal Exam: NORMAL INSPECTION - Back Exam Back Exam: NORMAL INSPECTION - Neurological Exam Neurological Exam: Oriented x3 - Psychiatric Exam Psychiatric exam: Normal Affect - Skin Skin Exam: Pallor Assessment and Plan - Assessment and Plan (Free Text) Assessment: chest pain cad chf esrf aneamia dmid blind continu current traetmene increase naz Plan: as per orders
--- NOTE | 2017-08-09 15:07 | CP.PCM.PN ---
Subjective - Date & Time of Evaluation Date of Evaluation: 08/09/17 Time of Evaluation: 15:06 - Subjective Subjective: Follow up Nephrology Consultation: Assessment: stable A flutter with RVR: improved Pulmonay edema with htn emergency, Hyperkalemia, elevated troponins: improved Diabetic chronic Kidney Disease (E11.22) Hypertensive Chronic Kidney Disease (I12.0) End stage renal disease (N18.6) dependence on hemodialysis (Z99.2) (TTS) via AVF Anemia (D64.9), Hyperphosphatemia (E83.39), Secondary Hyperparathyroidism (E21.1 ), HTN (I12.0) CAD s/p CABG, diastolic CHF, pA flutter/fib, intra-cardiac thrombus, Heparin induced thrombocytopenia, hx of seizure, blindness Plan: routine dialysis tomorrow as per TTS schedule. Continue with Nephrovite 1 tab/ day. PRBC as needed for anemia. On HANNAH as epogen, will hold as last Hb 11.6 Continue with phos binders home dose Continue with calcitriol BP control with meds as ordered. Patient not on RAAS skyler, BP labile Glycemic control, Dialysis consistent diet Further work up/management as per primary team Dose meds/antibiotics (if needed) for ESRD status. Avoid fleets enema/magnesium based laxatives. avoid heparin during HD due to hx of HIT. d/c planning as per primary team. stable from renal perspective Thanks for allowing me to participate in care of your patient. Will follow patient with you. Please call if any Qs. Dr Eric Temple Office: [phone] HPI: Pt is a 36 y/o transgender M with hx of ESRD on hemodialysis (TTS) via permacath, chronic anemia, hyperphosphatemia, secondary hyperparathyroidism, Diabetes Mellitus, hypertension, CAD s/p CABG, diastolic CHF, pA flutter/fib, intra-cardiac thrombus, Heparin indueced thrombocytopenia presented with complaints of chest pain and SOB for last 1 week c/o intermittent chest pain which is improved, denies palpitation, denies shortness of breath. Physical Examination: General Appearance: Comfortable, in no acute respiratory distress, co-operative .better appearing Vitals reviewed and noted as below Head; Atraumatic, normocephalic ENT: no ulcers no thrush. Tongue is midline. Oropharynx: no rash or ulcers. EYES: Pt is blind both eyes Neck; supple no lymphadenopathy, no thyromegaly or bruit Lungs: Normal respiratory rate/effort. Breath sounds bilateral equal clear Heart: normal rate. s1s2 normal. No rub or gallop. Extremities: no edema. No varicose veins. has b/l BKA Neurological: Patient is alert, awake and oriented to person, place and time. No focal deficit. Strength bilateral appropriate and equal Skin: Warm and dry. Normal turgor. No rash. Palpitation: Normal elasticity for age Abdomen: Abdomen is soft. Bowel sounds +. There is no abdominal tenderness, no guarding/rigidity or organomegaly Psych: limited insight and normal affect/mood MSK: no joint tenderness or swelling. Digits and nails normal, no deformity : kidney or bladder not palpable Access: permacath Labs/imaging reviewed. Past medical history, past surgical history, family history, social history, allergy reviewed and noted as below Family Hx: no hx of CKD. Non contributory Objective - Vital Signs/Intake and Output Vital Signs (last 24 hours): Temp Pulse Resp BP Pulse Ox 98.2 F 121 H 20 132/80 100 08/09/17 08:05 08/09/17 08:05 08/09/17 08:05 08/09/17 10:10 08/09/17 08:05 - Medications Medications: Current Medications Amiodarone HCl (Cordarone) 200 mg PO BID [facility] Last Admin: 08/09/17 10:11 Dose: 200 mg Aspirin (Aspirin Chewable) 81 mg PO DAILY [facility] Last Admin: 08/09/17 10:25 Dose: 81 mg Calcitriol (Rocaltrol) 0.25 mcg PO TTS [facility] Last Admin: 08/08/17 10:04 Dose: 0.25 mcg Calcium Carbonate (Oscal) 500 mg PO BID [facility] Last Admin: 08/09/17 10:11 Dose: 500 mg Carvedilol (Coreg) 12.5 mg PO Q12 [facility] Last Admin: 08/09/17 10:10 Dose: 12.5 mg Clonidine HCl (Catapres Tts1 0.1 Mg/24 Hr) 1 patch TD Q7D@1000 [facility] Last Admin: 08/08/17 10:03 Dose: 1 patch Diltiazem HCl (Cardizem) 30 mg PO Q8 [facility] Last Admin: 08/09/17 13:49 Dose: 30 mg Ergocalciferol (Drisdol 50,000 Intl Units Cap) 1 cap PO Q7D [facility] Last Admin: 08/07/17 07:19 Dose: 1 cap Hydromorphone HCl (Dilaudid) 2 mg PO Q6H PRN PRN Reason: Pain, severe (8-10) Last Admin: 08/01/17 01:00 Dose: 2 mg Hydromorphone HCl (Dilaudid) 1 mg IVP Q4H PRN PRN Reason: Pain, moderate (4-7) Last Admin: 08/09/17 11:24 Dose: 1 mg Insulin Detemir (Levemir) 10 unit SC [facility] Last Admin: 08/08/17 21:34 Dose: 10 unit Insulin Human Regular (Novolin R) 0 unit SC [facility] PRN Reason: Protocol Last Admin: 08/09/17 11:33 Dose: Not Given Isosorbide Mononitrate (Imdur Er) 90 mg PO DAILY [facility] Last Admin: 08/09/17 11:32 Dose: Not Given Lactulose (Enulose) 20 gm PO DAILY [facility] Last Admin: 08/09/17 10:10 Dose: 20 gm Levetiracetam (Keppra) 500 mg PO BID [facility] Last Admin: 08/09/17 10:11 Dose: 500 mg Montelukast Sodium (Singulair) 10 mg PO DAILY [facility] Last Admin: 08/09/17 10:11 Dose: 10 mg Ondansetron HCl (Zofran Inj) 4 mg IVP Q8 PRN PRN Reason: Nausea/Vomiting Last Admin: 08/06/17 14:26 Dose: 4 mg Pantoprazole Sodium (Protonix Ec Tab) 40 mg PO DAILY [facility] Last Admin: 08/09/17 10:11 Dose: 40 mg Rosuvastatin Calcium (Crestor) 10 mg PO HS [facility] Last Admin: 08/08/17 21:34 Dose: 10 mg Sertraline HCl (Zoloft) 50 mg PO DAILY [facility] Last Admin: 08/09/17 10:10 Dose: 50 mg Sevelamer Carbonate (Renvela) 800 mg PO TIDCC [facility] Last Admin: 08/09/17 13:00 Dose: 800 mg Valproate Sodium (Depakene Oral Soln) 250 mg PO QID [facility] Last Admin: 08/09/17 13:49 Dose: 250 mg Vitamin B Complex/Vit C/Folic Acid (Nephro-Courtney) 1 tab PO DAILY [facility] Last Admin: 08/09/17 10:11 Dose: 1 tab - Labs Labs: 08/06/17 11:26 08/06/17 11:26 PT 13.1 SECONDS (9.7-12.2) H 08/06/17 11:26 INR 1.1 08/06/17 11:26 APTT 31 SECONDS (21-34) 08/06/17 11:26
[2017-08-09] MEDS: Insulin Detemir 100 units/ml Vial (Levemir) SC SCH (22:03)
[2017-08-10] MEDS: HYDROmorphone 1 mg/ml ISec IVP PRN ×4 (00:29→15:45)
[2017-08-10] MEDS: (Novolin R) Insulin Human Regular 100 units/ml vial SC SCH ×2 (07:58→12:35)
--- NOTE | 2017-08-10 09:00 | CP.PCM.PN ---
Subjective - Date & Time of Evaluation Date of Evaluation: 08/10/17 Time of Evaluation: 09:00 - Subjective Subjective: Follow up Nephrology Consultation: Assessment: stable A flutter with RVR: improved Pulmonay edema with htn emergency, Hyperkalemia, elevated troponins: improved Diabetic chronic Kidney Disease (E11.22) Hypertensive Chronic Kidney Disease (I12.0) End stage renal disease (N18.6) dependence on hemodialysis (Z99.2) (TTS) via AVF Anemia (D64.9), Hyperphosphatemia (E83.39), Secondary Hyperparathyroidism (E21.1 ), HTN (I12.0) CAD s/p CABG, diastolic CHF, pA flutter/fib, intra-cardiac thrombus, Heparin induced thrombocytopenia, hx of seizure, blindness Plan: routine dialysis today as per TTS schedule. Continue with Nephrovite 1 tab/day. PRBC as needed for anemia. On HANNAH as epogen, will hold as last Hb 11.6 Continue with phos binders home dose Continue with calcitriol BP control with meds as ordered. Patient not on RAAS skyler, BP labile Glycemic control, Dialysis consistent diet Further work up/management as per primary team Dose meds/antibiotics (if needed) for ESRD status. Avoid fleets enema/magnesium based laxatives. avoid heparin during HD due to hx of HIT. d/c planning as per primary team. stable from renal perspective Thanks for allowing me to participate in care of your patient. Will follow patient with you. Please call if any Qs. Dr Eric Temple Office: [phone] HPI: Pt is a 36 y/o transgender M with hx of ESRD on hemodialysis (TTS) via permacath, chronic anemia, hyperphosphatemia, secondary hyperparathyroidism, Diabetes Mellitus, hypertension, CAD s/p CABG, diastolic CHF, pA flutter/fib, intra-cardiac thrombus, Heparin indueced thrombocytopenia presented with complaints of chest pain and SOB for last 1 week c/o intermittent chest pain which is improved, denies palpitation, denies shortness of breath. Physical Examination: General Appearance: Comfortable, in no acute respiratory distress, co-operative . Vitals reviewed and noted as below Head; Atraumatic, normocephalic ENT: no ulcers no thrush. Tongue is midline. Oropharynx: no rash or ulcers. EYES: Pt is blind both eyes Neck; supple no lymphadenopathy, no thyromegaly or bruit Lungs: Normal respiratory rate/effort. Breath sounds bilateral equal clear Heart: normal rate. s1s2 normal. No rub or gallop. Extremities: no edema. No varicose veins. has b/l BKA Neurological: Patient is alert, awake and oriented to person, place and time. No focal deficit. Strength bilateral appropriate and equal Skin: Warm and dry. Normal turgor. No rash. Palpitation: Normal elasticity for age Abdomen: Abdomen is soft. Bowel sounds +. There is no abdominal tenderness, no guarding/rigidity or organomegaly Psych: limited insight and normal affect/mood MSK: no joint tenderness or swelling. Digits and nails normal, no deformity : kidney or bladder not palpable Access: permacath Labs/imaging reviewed. Past medical history, past surgical history, family history, social history, allergy reviewed and noted as below Family Hx: no hx of CKD. Non contributory Objective - Vital Signs/Intake and Output Vital Signs (last 24 hours): Temp Pulse Resp BP Pulse Ox 98.1 F 65 20 157/82 H 99 08/10/17 08:08 08/10/17 08:08 08/10/17 08:08 08/10/17 08:08 08/10/17 08:08 Intake and Output: 08/10/17 08/10/17 06:59 18:59 Intake Total 600 Balance 600 - Medications Medications: Current Medications Amiodarone HCl (Cordarone) 200 mg PO BID [facility] Last Admin: 08/09/17 18:07 Dose: Not Given Aspirin (Aspirin Chewable) 81 mg PO DAILY [facility] Last Admin: 08/09/17 10:25 Dose: 81 mg Calcitriol (Rocaltrol) 0.25 mcg PO TTS [facility] Last Admin: 08/08/17 10:04 Dose: 0.25 mcg Calcium Carbonate (Oscal) 500 mg PO BID [facility] Last Admin: 08/09/17 18:12 Dose: 500 mg Carvedilol (Coreg) 12.5 mg PO Q12 [facility] Last Admin: 08/09/17 21:58 Dose: Not Given Clonidine HCl (Catapres Tts1 0.1 Mg/24 Hr) 1 patch TD Q7D@1000 [facility] Last Admin: 08/08/17 10:03 Dose: 1 patch Diltiazem HCl (Cardizem) 30 mg PO Q8 [facility] Last Admin: 08/10/17 05:34 Dose: 30 mg Ergocalciferol (Drisdol 50,000 Intl Units Cap) 1 cap PO Q7D [facility] Last Admin: 08/07/17 07:19 Dose: 1 cap Hydromorphone HCl (Dilaudid) 2 mg PO Q6H PRN PRN Reason: Pain, severe (8-10) Last Admin: 08/01/17 01:00 Dose: 2 mg Hydromorphone HCl (Dilaudid) 1 mg IVP Q4H PRN PRN Reason: Pain, moderate (4-7) Last Admin: 08/10/17 05:36 Dose: 1 mg Insulin Detemir (Levemir) 10 unit SC [facility] Last Admin: 08/09/17 22:03 Dose: 10 unit Insulin Human Regular (Novolin R) 0 unit SC [facility] PRN Reason: Protocol Last Admin: 08/10/17 07:58 Dose: Not Given Isosorbide Mononitrate (Imdur Er) 90 mg PO DAILY [facility] Last Admin: 08/09/17 11:32 Dose: Not Given Lactulose (Enulose) 20 gm PO DAILY [facility] Last Admin: 08/09/17 10:10 Dose: 20 gm Levetiracetam (Keppra) 500 mg PO BID [facility] Last Admin: 08/09/17 18:12 Dose: 500 mg Montelukast Sodium (Singulair) 10 mg PO DAILY [facility] Last Admin: 08/09/17 10:11 Dose: 10 mg Ondansetron HCl (Zofran Inj) 4 mg IVP Q8 PRN PRN Reason: Nausea/Vomiting Last Admin: 08/06/17 14:26 Dose: 4 mg Pantoprazole Sodium (Protonix Ec Tab) 40 mg PO DAILY [facility] Last Admin: 08/09/17 10:11 Dose: 40 mg Rosuvastatin Calcium (Crestor) 10 mg PO HS [facility] Last Admin: 08/09/17 22:03 Dose: 10 mg Sertraline HCl (Zoloft) 50 mg PO DAILY [facility] Last Admin: 08/09/17 10:10 Dose: 50 mg Sevelamer Carbonate (Renvela) 800 mg PO TIDCC [facility] Last Admin: 08/10/17 08:01 Dose: 800 mg Valproate Sodium (Depakene Oral Soln) 250 mg PO QID [facility] Last Admin: 08/09/17 22:03 Dose: 250 mg Vitamin B Complex/Vit C/Folic Acid (Nephro-Courtney) 1 tab PO DAILY [facility] Last Admin: 08/09/17 10:11 Dose: 1 tab - Labs Labs: 08/06/17 11:26 08/06/17 11:26 PT 13.1 SECONDS (9.7-12.2) H 08/06/17 11:26 INR 1.1 08/06/17 11:26 APTT 31 SECONDS (21-34) 08/06/17 11:26
[2017-08-10] MEDS: Valproic Acid 250 mg/5 ml UD Cup PO SCH ×2 (09:04→14:14)
[2017-08-10] MEDS: Multivitamin Vitamin B Complex (Nephro-Vite) Tab PO SCH (09:05)
[2017-08-10] MEDS: Pantoprazole 40 mg EC Tab PO SCH (09:05)
--- NOTE | 2017-08-10 09:40 | CP.PCM.PN ---
Subjective - Date & Time of Evaluation Date of Evaluation: 08/10/17 Time of Evaluation: 09:37 - Subjective Subjective: seen in dialysis no chest pain feels beter no sob Objective - Vital Signs/Intake and Output Vital Signs (last 24 hours): Temp Pulse Resp BP Pulse Ox 98.1 F 65 20 157/82 H 99 08/10/17 08:08 08/10/17 08:08 08/10/17 08:08 08/10/17 08:08 08/10/17 08:08 Intake and Output: 08/10/17 08/10/17 06:59 18:59 Intake Total 600 Balance 600 - Medications Medications: Current Medications Amiodarone HCl (Cordarone) 200 mg PO BID [facility] Last Admin: 08/10/17 09:04 Dose: Not Given Aspirin (Aspirin Chewable) 81 mg PO DAILY [facility] Last Admin: 08/10/17 09:04 Dose: Not Given Calcitriol (Rocaltrol) 0.25 mcg PO TTS [facility] Last Admin: 08/10/17 09:05 Dose: Not Given Calcium Carbonate (Oscal) 500 mg PO BID [facility] Last Admin: 08/10/17 09:05 Dose: Not Given Carvedilol (Coreg) 12.5 mg PO Q12 [facility] Last Admin: 08/10/17 09:04 Dose: Not Given Clonidine HCl (Catapres Tts1 0.1 Mg/24 Hr) 1 patch TD Q7D@1000 [facility] Last Admin: 08/08/17 10:03 Dose: 1 patch Diltiazem HCl (Cardizem) 30 mg PO Q8 [facility] Last Admin: 08/10/17 05:34 Dose: 30 mg Ergocalciferol (Drisdol 50,000 Intl Units Cap) 1 cap PO Q7D [facility] Last Admin: 08/07/17 07:19 Dose: 1 cap Hydromorphone HCl (Dilaudid) 2 mg PO Q6H PRN PRN Reason: Pain, severe (8-10) Last Admin: 08/01/17 01:00 Dose: 2 mg Hydromorphone HCl (Dilaudid) 1 mg IVP Q4H PRN PRN Reason: Pain, moderate (4-7) Last Admin: 08/10/17 05:36 Dose: 1 mg Insulin Detemir (Levemir) 10 unit SC HS [facility] Last Admin: 08/09/17 22:03 Dose: 10 unit Insulin Human Regular (Novolin R) 0 unit SC [facility] PRN Reason: Protocol Last Admin: 08/10/17 07:58 Dose: Not Given Isosorbide Mononitrate (Imdur Er) 90 mg PO DAILY [facility] Last Admin: 08/10/17 09:04 Dose: Not Given Lactulose (Enulose) 20 gm PO DAILY [facility] Last Admin: 08/10/17 09:04 Dose: Not Given Levetiracetam (Keppra) 500 mg PO BID [facility] Last Admin: 08/10/17 09:05 Dose: Not Given Montelukast Sodium (Singulair) 10 mg PO DAILY [facility] Last Admin: 08/10/17 09:05 Dose: Not Given Ondansetron HCl (Zofran Inj) 4 mg IVP Q8 PRN PRN Reason: Nausea/Vomiting Last Admin: 08/06/17 14:26 Dose: 4 mg Pantoprazole Sodium (Protonix Ec Tab) 40 mg PO DAILY [facility] Last Admin: 08/10/17 09:05 Dose: Not Given Rosuvastatin Calcium (Crestor) 10 mg PO [facility] Last Admin: 08/09/17 22:03 Dose: 10 mg Sertraline HCl (Zoloft) 50 mg PO DAILY [facility] Last Admin: 08/10/17 09:05 Dose: Not Given Sevelamer Carbonate (Renvela) 800 mg PO TIDCC [facility] Last Admin: 08/10/17 08:01 Dose: 800 mg Valproate Sodium (Depakene Oral Soln) 250 mg PO QID [facility] Last Admin: 08/10/17 09:04 Dose: Not Given Vitamin B Complex/Vit C/Folic Acid (Nephro-Courtney) 1 tab PO DAILY [facility] Last Admin: 08/10/17 09:05 Dose: Not Given - Labs Labs: 08/06/17 11:26 08/06/17 11:26 PT 13.1 SECONDS (9.7-12.2) H 08/06/17 11:26 INR 1.1 08/06/17 11:26 APTT 31 SECONDS (21-34) 08/06/17 11:26 - Constitutional Appears: Non-toxic - Head Exam Head Exam: ATRAUMATIC - Eye Exam Eye Exam: Conjunctival injection - ENT Exam ENT Exam: Mucous Membranes Moist - Neck Exam Neck Exam: Full ROM - Respiratory Exam Respiratory Exam: Clear to Ausculation Bilateral - Cardiovascular Exam Cardiovascular Exam: REGULAR RHYTHM - GI/Abdominal Exam GI & Abdominal Exam: Normal Bowel Sounds - Rectal Exam Rectal Exam: NORMAL INSPECTION - Back Exam Back Exam: NORMAL INSPECTION - Neurological Exam Neurological Exam: Alert, Oriented x3 - Psychiatric Exam Psychiatric exam: Normal Affect - Skin Skin Exam: Normal Color Assessment and Plan - Assessment and Plan (Free Text) Assessment: chest pain cad improved chf improved dmid esrf Plan: d/c home today with home servisce
[2017-08-10 13:26] VITALS: RESP 20; O2SAT 99
--- NOTE | 2017-08-10 17:02 | CP.PCM.PN ---
Subjective - Date & Time of Evaluation Date of Evaluation: 08/10/17 Time of Evaluation: 17:01 - Subjective Subjective: Awake, alert, follows commands, no acute distress. Objective - Vital Signs/Intake and Output Vital Signs (last 24 hours): Temp Pulse Resp BP Pulse Ox 97.4 F L 71 20 129/84 99 08/10/17 13:25 08/10/17 13:25 08/10/17 13:25 08/10/17 13:25 08/10/17 13:25 Intake and Output: 08/10/17 08/10/17 06:59 18:59 Intake Total 600 Balance 600 - Medications Medications: Current Medications Amiodarone HCl (Cordarone) [address] [facility] Last Admin: 08/10/17 09:04 Dose: Not Given Aspirin (Aspirin Chewable) [address] [facility] Last Admin: 08/10/17 09:04 Dose: Not Given Calcitriol (Rocaltrol) 0.[address] [facility] Last Admin: 08/10/17 09:05 Dose: Not Given Calcium Carbonate (Oscal) [address] [facility] Last Admin: 08/10/17 09:05 Dose: Not Given Carvedilol (Coreg) 12.[address] [facility] Last Admin: 08/10/17 09:04 Dose: Not Given Clonidine HCl (Catapres Tts1 0.1 Mg/24 Hr) 1 patch TD Q7D@1000 [facility] Last Admin: 08/08/17 10:03 Dose: 1 patch Diltiazem HCl (Cardizem) [address] [facility] Last Admin: 08/10/17 14:14 Dose: Not Given Ergocalciferol (Drisdol 50,000 Intl Units Cap) [address] [facility] Last Admin: 08/07/17 07:19 Dose: 1 cap Hydromorphone HCl (Dilaudid) 2 mg PO Q6H PRN PRN Reason: Pain, severe (8-10) Last Admin: 08/01/17 01:00 Dose: 2 mg Hydromorphone HCl (Dilaudid) 1 mg IVP Q4H PRN PRN Reason: Pain, moderate (4-7) Last Admin: 08/10/17 15:45 Dose: 1 mg Insulin Detemir (Levemir) [address] [facility] Last Admin: 08/09/17 22:03 Dose: 10 unit Insulin Human Regular (Novolin R) 0 unit SC [facility] PRN Reason: Protocol Last Admin: 08/10/17 12:35 Dose: Not Given Isosorbide Mononitrate (Imdur Er) [address] [facility] Last Admin: 08/10/17 09:04 Dose: Not Given Lactulose (Enulose) [address] [facility] Last Admin: 08/10/17 09:04 Dose: Not Given Levetiracetam (Keppra) [address] [facility] Last Admin: 08/10/17 09:05 Dose: Not Given Montelukast Sodium (Singulair) [address] [facility] Last Admin: 08/10/17 09:05 Dose: Not Given Ondansetron HCl (Zofran Inj) 4 mg IVP Q8 PRN PRN Reason: Nausea/Vomiting Last Admin: 08/06/17 14:26 Dose: 4 mg Pantoprazole Sodium (Protonix Ec Tab) [address] [facility] Last Admin: 08/10/17 09:05 Dose: Not Given Rosuvastatin Calcium (Crestor) [address] [facility] Last Admin: 08/09/17 22:03 Dose: 10 mg Sertraline HCl (Zoloft) [address] [facility] Last Admin: 08/10/17 09:05 Dose: Not Given Sevelamer Carbonate (Renvela) [address] [facility] Last Admin: 08/10/17 12:36 Dose: Not Given Valproate Sodium (Depakene Oral Soln) [address] [facility] Last Admin: 08/10/17 14:14 Dose: Not Given Vitamin B Complex/Vit C/Folic Acid (Nephro-Courtney) [address] [facility] Last Admin: 08/10/17 09:05 Dose: Not Given - Labs Labs: 08/06/17 11:26 08/06/17 11:26 PT 13.1 SECONDS (9.7-12.2) H 08/06/17 11:26 INR 1.1 08/06/17 11:26 APTT 31 SECONDS (21-34) 08/06/17 11:26 Assessment and Plan - Assessment and Plan (Free Text) Assessment: Patient is seen and examined after HD today. Alert, pleasant, no sob or chest pains noted. D/W DR Li, plan to discharge home today. Advised to continue with present meds and HD as scheduled. To follow up with PMD in 1 week.
--- NOTE | 2017-08-10 17:07 | PCM.HF ---
Heart Failure Core Measure - Heart Failure Ejection Fraction: 40 % or Greater (EF >70%) RAÚL Inhibitor Prescribed: No Contraindication/Reason for not providing: ESRD Beta-Andrew Prescribed: Carvedilol Angiotensin II Receptor Andrew Prescribed: No Contraindication/Reason for not providing: ESRD AnticoagulationTherapy for Atrial Fibrillation/Atrialflutter: No Contraindication/Reason for not providing: bleeding tendency Aldosterone Antagonist Prescribed: No Contraindication/Reason for not providing: low BP Hydralazine Nitrate Prescribed: No Contraindication/Reason for not providing: EF>40% Implantable Cardioverter Defibrillator Therapy: No Contraindication/Reason for not providing: EF >40% Cardiac Resynchronization Therapy Prescribed: No Contraindication/Reason for not providing: not indicated - Follow up Will be discharged to: Home Follow Up Date (must be within 7 days from discharge): 08/12/17 Follow Up Time: 09:00
[2017-08-10 17:15] VITALS: BP 110/59; PULSE 79; TEMP 98
== END 2017-08-10 17:20 | disposition home or self-care (01) | DRG 544 ==
LOC: C.ER 09:37 → C.9E 12:58 → C.5S 21:12
PROVIDERS: ADMIT Internal Medicine; ATTEND Internal Medicine
PROC: 5A1D70Z Performance of Urinary Filtration, Intermittent, Less than 6 Hours Per Day (ICD-10-PCS; principal; 2017-07-30)
DX: I48.92 Unspecified atrial flutter (principal); I50.30 Unspecified diastolic (congestive) heart failure; I13.2 Hypertensive heart and chronic kidney disease with heart failure and with stage 5 chronic kidney disease, or end stage renal disease; N17.9 Acute kidney failure, unspecified; F02.80 Dementia in other diseases classified elsewhere, unspecified severity, without behavioral disturbance, psychotic disturbance, mood disturbance, and anxiety; N18.6 End stage renal disease; E87.5 Hyperkalemia; I48.91 Unspecified atrial fibrillation; N25.81 Secondary hyperparathyroidism of renal origin; I25.10 Atherosclerotic heart disease of native coronary artery without angina pectoris; I16.1 Hypertensive emergency; H54.8 Legal blindness, as defined in USA; Z86.73 Personal history of transient ischemic attack (TIA), and cerebral infarction without residual deficits; Z87.01 Personal history of pneumonia (recurrent); Z89.511 Acquired absence of right leg below knee; F64.9 Gender identity disorder, unspecified; Z89.512 Acquired absence of left leg below knee; Z95.5 Presence of coronary angioplasty implant and graft; Z99.2 Dependence on renal dialysis

== ENCOUNTER 2017-08-16 13:33 | Inpatient (IN) | payer OTHER ==
[2017-08-16 13:34] VITALS: PULSE 66; BMI 18.8
--- NOTE | 2017-08-16 14:03 | C.PDOC ---
History Of Present Illness Patient is a 37 y/o M with CAD with stents, with subsequent PCI shows all grafts closed, ESRD on HD T, R, Sat, lower extremity bka due to pvd, dm, legally blind, with recent admission for chest pain with elevated trop, though secondary to demand ischemia vs nstemi, not candidate for surgical or percutaneous therapy, presenting with chest pain. She reports compliance with medication and dialysis. Reports that chest pain was this morning while at home and has now resolved. Reports taking aspirin 81mg prior to arrival. She is also requesting xray L femur due to oxygen tank falling on it at dialysis. PMD: Vineet Li Time Seen by Provider: 08/16/17 13:43 Chief Complaint (Nursing): Chest Pain Past Medical History Vital Signs: Last Vital Signs Temp 98.5 F 08/16/17 13:40 Pulse 68 08/16/17 13:40 Resp 18 08/16/17 13:40 BP 97/48 L 08/16/17 13:40 Pulse Ox 100 08/16/17 14:40 - Medical History PMH: Alzheimer's Disease, Anemia, Anxiety, Arthritis, Asthma, Atrial Fibrillation, Bronchitis, CAD, Cardia Arrhythmia, CHF, COPD, CVA, Depression, Diabetes, Deep Vein Thrombosis, Gastritis, Gastrointestinal Ulcer, Gall Bladder Disease, HTN, Hypercholesterolemia, Hypothyroidism, Pneumonia, End Stage Renal Disease, Chronic Kidney Disease, Seizures Denies: Hyperthyroidism, Sexually Transmitted Disease Surgical History: CABG (12/2009), Cholecystectomy (2011), Coronary Stent - [facility] (07/30/17) ABDOMINAL WALL SINOGRAM (12/31/13) C.A.T. SCAN OF ABDOMEN (10/31/13) CENTRAL VENOUS CATHETER PLACEMENT WITH GUIDANCE (02/10/15) CHANGE OTHER DEVICE IN TRUNK SUBCU/FASCIA, WORKPLACE REHABILITATION OFFICER APPROACH (06/01/17) DILATE R ANT TIB ART W DRUG-ELUT INTRALUM, PERC (08/12/15) DILATION OF LEFT FEMORAL ARTERY, PERCUTANEOUS APPROACH (07/04/16) DILATION OF RIGHT FEMORAL ARTERY, PERCUTANEOUS APPROACH (08/12/15) DILATION OF RIGHT POPLITEAL ARTERY, PERCUTANEOUS APPROACH (08/12/15) DX ULTRASOUND-HEART (01/05/13) ENTERAL INFUSION OF CONCENTRATED NUT. SUBSTANCES (06/28/13) EXCIS DEBRIDE OF WOUND, INFECT, OR BURN (08/03/14) EXCISION OF STOMACH, ENDO, DIAGN (03/03/17) EXTIRPATION OF MATTER FROM L FEM ART, PERC APPROACH (07/04/16) EXTIRPATION OF MATTER FROM R FEM ART, PERC APPROACH (08/12/15) EXTIRPATION OF MATTER FROM R POPL ART, PERC APPROACH (08/12/15) FLUOROSCOPY OF L LOW EXTREM ART USING L OSM CONTRAST (08/12/15) FLUOROSCOPY OF R LOW EXTREM ART USING L OSM CONTRAST (08/12/15) FLUOROSCOPY OF RIGHT JUGULAR VEINS, GUIDANCE (06/01/17) FREE SKIN GRAFT NEC (08/03/14) HEAD SOFT TISS X-RAY NEC (04/15/13) HEMODIALYSIS (04/28/15) INCIS W REM OF FORIEGN BODY OR DEV FROM SKIN & SUBCUT TISSUE (08/08/13) INSERT INFUSION DEV IN R INT JUGULAR VEIN, PERC (06/01/17) INSERTION OF INFUSION DEV INTO R SUBCLAV VEIN, PERC APPROACH (01/19/16) INSERTION OF INFUSION DEV INTO SUP VENA CAVA, PERC APPROACH (05/17/17) INSPECTION OF UPPER INTESTINAL TRACT, ENDO (03/03/17) INTRODUCE OF OTH THROMBOLYTIC INTO PERIPH ART, PERC APPROACH (08/12/15) LAPAROSCOPIC CHOLECYSTECTOMY (09/21/13) LOC EXC LES METATAR/TAR (06/01/14) PACKED CELL TRANSFUSION (06/01/14) PERCUTAN LIVER ASPIRAT (12/31/13) PERFORMANCE OF URINARY FILTRATION, MULTIPLE (05/17/17) PERFORMANCE OF URINARY FILTRATION, SINGLE (12/18/16) SKIN & SUBQ INCISION NEC (10/24/14) TETANUS TOXOID ADMINIST (06/13/14) TRANSFUSE NONAUT RED BLOOD CELLS IN PERIPH VEIN, PERC (04/09/17) ULTRASONOGRAPHY OF RIGHT AND LEFT HEART (04/09/17) ULTRASONOGRAPHY OF SUPERIOR VENA CAVA, GUIDANCE (02/20/17) VENOUS CATHETERIZATION FOR RENAL DIALYSIS (08/08/13) VENOUS CATHETERIZATION NEC (04/30/13) Family History: States: Unknown Family Hx - Social History Hx Tobacco Use: No Hx Alcohol Use: No Hx Substance Use: No - Immunization History Hx Tetanus Toxoid Vaccination: No Hx Influenza Vaccination: No Hx Pneumococcal Vaccination: Yes Review Of Systems Except As Marked, All Systems Reviewed And Found Negative. Constitutional: Negative for: Fever, Chills Cardiovascular: Positive for: Chest Pain. Negative for: Palpitations Respiratory: Negative for: Cough, Shortness of Breath, SOB with Excertion, Wheezing Gastrointestinal: Negative for: Nausea, Vomiting, Abdominal Pain, Diarrhea, Constipation Musculoskeletal: Positive for: Leg Pain (L femur). Negative for: Neck Pain Neurological: Negative for: Weakness, Numbness, Headache Physical Exam - Physical Exam Appears: Well, Non-toxic, No Acute Distress Skin: Normal Color, Warm, Dry Head: Atraumatic, Normacephalic Eye(s): bilateral: Normal Inspection, PERRL, EOMI, left: Other (blind) Neck: Supple Chest: Symmetrical Cardiovascular: Rhythm Regular, Other (dialysis port to R chest wall) Respiratory: Normal Breath Sounds, No Rales, No Rhonchi, No Wheezing Gastrointestinal/Abdominal: Soft, No Tenderness, No Mass, No Distention Back: Normal Inspection, No CVA Tenderness Extremity: Other (b/l BKA, no tenderness to L femur) ED Course And Treatment - Laboratory Results Result Diagrams: 08/16/17 15:22 08/16/17 15:22 O2 Sat by Pulse Oximetry: 100 Medical Decision Making Medical Decision Making: Cxray shows "Interval improvement in pulmonary venous congestion and presumable right pulmonary edema. Left lower lobe airspace disease may represent atelectasis or pneumonia. Follow-up is advised." Normal wbc and afebrile. EKG shows NSR at 66bpm with LVH. No acute ST changes. Trop x 1 negative. Other blood work at baseline. Will transfer to [facility] under [facility] due to known obstructive cad. No current chest pain. Disposition - Disposition Disposition: HOSPITALIZED Disposition Time: 13:50 Condition: FAIR - Clinical Impression Clinical Impression: Chest pain
--- NOTE | 2017-08-16 14:31 | RAD ---
PROCEDURE: CHEST RADIOGRAPH, 1 VIEW HISTORY: chest tightness COMPARISON: 07/30/2017. FINDINGS: The right dialysis catheter terminates in the right atrium. LUNGS: There are low lung volumes. There is interval improved aeration in both lungs could There is mild pulmonary venous congestion. There is a left retrocardiac opacity. PLEURA: No pneumothorax or pleural fluid seen. CARDIOVASCULAR: There is persistent moderate cardiomegaly. Status post CABG. OSSEOUS STRUCTURES: No significant abnormalities. VISUALIZED UPPER ABDOMEN: Normal. OTHER FINDINGS: None. IMPRESSION: Interval improvement in pulmonary venous congestion and presumable right pulmonary edema. Left lower lobe airspace disease may represent atelectasis or pneumonia. Follow-up is advised.
--- NOTE | 2017-08-16 14:35 | RAD ---
PROCEDURE: Right Femur Radiographs. HISTORY: fall on bka stump COMPARISON: None. TECHNIQUE: AP and Lateral Radiographs of the right femur. FINDINGS: FEMUR: There is diffuse bone demineralization. There is no acute displaced fracture. Bone alignment is normal. SOFT TISSUES: Normal. OTHER FINDINGS: There is a femoral artery endovascular stent graft. IMPRESSION: No acute displaced fracture.
[2017-08-16 15:27] LABS: BASO # 0.1 K/uL (0.0-0.2); BASO % 0.9 % (0.0-2.0); EOS # 0.4 K/uL (0.0-0.7); EOS % 3.4 % (0.0-4.0); HEMATOCRIT 33.8 % (35.0-51.0); LYMPH # 2.7 K/uL (1.0-4.3); LYMPH % 25.1 % (20.0-40.0); MEAN CELL VOLUME 88.9 fL (80.0-94.0); MEAN CORPUSCULAR HEMOGLOBIN 28.1 pg (27.0-31.0); MEAN CORPUSCULAR HGB CONC 31.7 g/dL (33.0-37.0); MEAN PLATELET VOLUME 9.3 fL (7.2-11.7); MONO # 0.7 K/uL (0.0-0.8); MONO % 6.4 % (0.0-10.0); WHITE BLOOD COUNT 10.9 K/uL (4.8-10.8)
[2017-08-16 15:34] LABS: INR 1.1
[2017-08-16] MEDS ORDERED: HYDROmorphone 1 mg/ml ISec IVP STA (15:45)
[2017-08-16 15:46] LABS: ALB/GLOB RATIO 0.9 (1.0-2.1); BILIRUBIN,TOTAL 0.4 mg/dL (0.2-1.3); CALCIUM 7.9 mg/dl (8.6-10.4); MAGNESIUM 1.8 mg/dL (1.6-2.3); PHOSPHOROUS 5.2 mg/dL (2.5-4.5); POTASSIUM 5.4 mmol/L (3.6-5.2); TOTAL PROTEIN 7.7 g/dL (6.3-8.3)
[2017-08-16 15:54] LABS: TROPONIN I 0.108 ng/mL (0.00-0.120)
[2017-08-16] MEDS: HYDROmorphone 0.5 mg/0.5 ml ISec IVP PRN (21:45)
[2017-08-16] MEDS: (Lantus) Insulin Glargine, Recombinant SC SCH (22:05)
[2017-08-16] MEDS: Valproic Acid 250 mg/5 ml UD Cup PO SCH (22:07)
[2017-08-17] MEDS: HYDROmorphone 0.5 mg/0.5 ml ISec IVP PRN ×5 (02:04→22:38)
[2017-08-17] MEDS: Albuterol-Ipratrop 3 mg / 0.5 (3 ml) UD INH SCH ×4 (02:12→20:19)
[2017-08-17 07:02] LABS: TROPONIN I 0.095 ng/mL (0.00-0.120)
[2017-08-17] MEDS: (Novolog) Insulin Aspart, Recombinant 100 u/ml 10 ml vial SC SCH ×3 (07:53→18:05)
[2017-08-17] MEDS ORDERED: Multivitamin Vitamin B Complex (Nephro-Vite) Tab PO SCH (08:00)
[2017-08-17] MEDS: Valproic Acid 250 mg/5 ml UD Cup PO SCH ×4 (09:38→22:36)
[2017-08-17] MEDS: Pantoprazole 40 mg EC Tab PO SCH (09:39)
[2017-08-17] MEDS: Multivitamin Vitamin B Complex (Nephro-Vite) Tab PO SCH (09:39)
--- NOTE | 2017-08-17 11:25 | CP.PCM.HP ---
History of Present Illness - History of Present Illness History of Present Illness: pt came in for chest pain retrosternal and sob has pain l thigh something fell on it Present on Admission - Present on Admission Any Indicators Present on Admission: Yes Review of Systems - Review of Systems Systems not reviewed;Unavailable: Acuity of Condition - Constitutional Constitutional: Fatigue - EENT Eyes: Blind Spots Ears: As Per HPI Nose/Mouth/Throat: As Per HPI - Cardiovascular Cardiovascular: Chest Pain at Rest, Dyspnea - Respiratory Respiratory: Cough - Gastrointestinal Gastrointestinal: As Per HPI - Genitourinary Genitourinary: As Per HPI - Reproductive: Male Reproductive:Male: As Per HPI - Musculoskeletal Additional comments: bilateral amputation - Integumentary Integumentary: As Per HPI - Neurological Neurological: As Per HPI, Paresthesias - Psychiatric Psychiatric: Depression - Endocrine Endocrine: Cold Intolorance - Hematologic/Lymphatic Hematologic: As Per HPI Past Patient History - Infectious Disease Hx of Infectious Diseases: None - Tetanus Immunizations Tetanus Immunization: >10 years Ago - Past Medical History & Family History Past Medical History?: Yes - Past Social History Smoking Status: Never Smoked - CARDIAC Hx Atrial Fibrillation: Yes Hx Cardia Arrhythmia: Yes Hx Congestive Heart Failure: Yes Hx Hypercholesterolemia: Yes Hx Hypertension: Yes - PULMONARY Hx Asthma: Yes Hx Bronchitis: Yes Hx Chronic Obstructive Pulmonary Disease (COPD): Yes Hx Pneumonia: Yes - NEUROLOGICAL Hx Alzheimer's Disease: Yes Hx Seizures: Yes - HEENT Hx HEENT Problems: Yes Hx Blind: Yes (legally blind) Hx Cataracts: Yes - RENAL Hx Chronic Kidney Disease: Yes - ENDOCRINE/METABOLIC Hx Hyperthyroidism: No Hx Hypothyroidism: Yes - HEMATOLOGICAL/ONCOLOGICAL Hx Anemia: Yes - INTEGUMENTARY Hx Dermatological Problems: No - MUSCULOSKELETAL/RHEUMATOLOGICAL Hx Arthritis: Yes - GASTROINTESTINAL Hx Gall Bladder Disease: Yes Hx Gastritis: Yes - GENITOURINARY/GYNECOLOGICAL Hx Sexually Transmitted Disorders: No - PSYCHIATRIC Hx Anxiety: Yes Hx Depression: Yes Hx Substance Use: No - SURGICAL HISTORY Hx Cholecystectomy: Yes (2011) 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/2009) Hx Coronary Stent: Yes - ANESTHESIA Hx Anesthesia: Yes Hx Anesthesia Reactions: No Hx Malignant Hyperthermia: No Meds Allergies/Adverse Reactions: Allergies Allergy/AdvReac Type Severity Reaction Status Date / Time acetaminophen [From Percocet] Allergy RASH Verified 08/16/17 13:43 atenolol Allergy RASH Verified 08/16/17 13:43 digoxin Allergy RASH Verified 08/16/17 13:43 milk Allergy ITCHING Verified 08/16/17 13:43 morphine Allergy RASH Verified 08/16/17 13:43 oxycodone HCl [From Percocet] Allergy RASH Verified 08/16/17 13:43 Physical Exam - Constitutional Appears: Non-toxic - Head Exam Head Exam: NORMOCEPHALIC - Eye Exam Eye Exam: Conjunctival injection Additional comments: legaly blind - ENT Exam ENT Exam: Mucous Membranes Dry - Neck Exam Neck exam: Positive for: Full Rom - Respiratory Exam Respiratory Exam: Accessory Muscle Use, Decreased Breath Sounds, Rales - Cardiovascular Exam Cardiovascular Exam: REGULAR RHYTHM - GI/Abdominal Exam GI & Abdominal Exam: Normal Bowel Sounds - Rectal Exam Rectal Exam: NORMAL INSPECTION - Back Exam Back exam: CVA tenderness (L) - Neurological Exam Neurological exam: Oriented x3 - Psychiatric Exam Psychiatric exam: Normal Mood - Skin Skin Exam: Pallor, Pallor Results - Vital Signs Recent Vital Signs: Last Vital Signs Temp 97.4 F L 08/17/17 07:50 Pulse 54 L 08/17/17 07:50 Resp 20 08/17/17 07:50 BP 148/52 L 08/17/17 09:38 Pulse Ox 100 08/17/17 07:50 - Labs Result Diagrams: 08/16/17 15:22 08/16/17 15:22 Labs: Laboratory Results - last 24 hr 08/16/17 08/16/17 08/16/17 15:22 15:22 15:22 WBC 10.9 H RBC 3.81 L Hgb 10.7 L Hct 33.8 L MCV 88.9 MCH 28.1 MCHC 31.7 L RDW 21.0 H Plt Count 187 MPV 9.3 Neut % (Auto) 64.2 Lymph % (Auto) 25.1 [place] % (Auto) 6.4 Eos % (Auto) 3.4 Baso % (Auto) 0.9 Neut # 7.0 Lymph # 2.7 [place] # 0.7 Eos # 0.4 Baso # 0.1 PT 12.1 INR 1.1 APTT 30 Sodium 136 Potassium 5.4 H Chloride 101 Carbon Dioxide 28 Anion Gap 12 BUN 49 H Creatinine 4.8 H Est GFR ( Amer) 17 Est GFR (Non-Af Amer) 14 POC Glucose (mg/dL) Random Glucose 148 H Calcium 7.9 L Phosphorus 5.2 H Magnesium 1.8 Total Bilirubin 0.4 AST 22 ALT 29 Alkaline Phosphatase 199 H D Total Creatine Kinase 59 CK-MB (Mass) 1.46 Troponin I 0.1080 NT-Pro-B Natriuret Pep 11774 H Total Protein 7.7 Albumin 3.7 Globulin 4.0 H Albumin/Globulin Ratio 0.9 L 08/16/17 08/17/17 08/17/17 21:33 06:20 06:29 WBC RBC Hgb Hct MCV MCH MCHC RDW Plt Count MPV Neut % (Auto) Lymph % (Auto) [place] % (Auto) Eos % (Auto) Baso % (Auto) Neut # Lymph # [place] # Eos # Baso # PT INR APTT Sodium Potassium Chloride Carbon Dioxide Anion Gap BUN Creatinine Est GFR ( Amer) Est GFR (Non-Af Amer) POC Glucose (mg/dL) 297 H 85 Random Glucose Calcium Phosphorus Magnesium Total Bilirubin AST ALT Alkaline Phosphatase Total Creatine Kinase 39 L CK-MB (Mass) 1.64 Troponin I 0.0950 NT-Pro-B Natriuret Pep Total Protein Albumin Globulin Albumin/Globulin Ratio Assessment & Plan - Assessment and Plan (Free Text) Assessment: severe cad recurent chest pain chf dm esrf Plan: as per orders - Date & Time Date: 08/17/17 Time: 11:28
--- NOTE | 2017-08-17 13:31 | CP.PCM.CON ---
History of Present Illness - History of Present Illness History of Present Illness: NEPHROLOGY CONSULTATION IMP: ESRD TTS Chest Pain Diabetic chronic Kidney Disease (E11.22) Hypertensive Chronic Kidney Disease (I12.0) Anemia (D64.9), Hyperphosphatemia (E83.39), Secondary Hyperparathyroidism (E21.1 ), HTN (I12.0) CAD s/p CABG, diastolic CHF, pA flutter/fib, intra-cardiac thrombus, Heparin induced thrombocytopenia, hx of seizure, blindness Hyperkalemia Plan: Plan for HD today per usual schedule and continue TTS Continue with Nephrovite 1 tab/day. HANNAH for anemia Continue with phos binders home dose BP well controlled Continue with calcitriol f/u cardiology Chief Complaint; Chest pain HPI: Pt is a 36 y/o transgender M with hx of ESRD on hemodialysis (TTS) via permacath, chronic anemia, hyperphosphatemia, secondary hyperparathyroidism, DM , CAD that presented for CP. Currrently CP free. Denies any n/v. Eating lunch with no problems. Denies current SOB. States has been compliant w/ HD. Otherwise offers no complaints today. Pain well controlled. ROS: A Full detailed ROS is negative except as in my HPI Physical Examination: General Appearance: Comfortable, in no acute respiratory distress, co-operative . Vitals reviewed and noted as below Head; Atraumatic, normocephalic ENT: no ulcers no thrush. Tongue is midline. Oropharynx: no rash or ulcers. EYES: Pt is blind both eyes Neck; supple no lymphadenopathy, no thyromegaly or bruit Lungs: Normal respiratory rate/effort. Breath sounds bilateral equal clear Heart: Normal rate. s1s2 normal. No rub or gallop. Extremities: no edema. No varicose veins. has b/l BKA Neurological: Patient is alert, awake and oriented to person, place and time. No focal deficit. Strength bilateral appropriate and equal Skin: Warm and dry. Normal turgor. No rash. Palpitation: Normal elasticity for age Abdomen: Abdomen is soft. Bowel sounds +. There is no abdominal tenderness, no guarding/rigidity or organomegaly Psych: normal insight and normal affect/mood MSK: no joint tenderness or swelling. Digits and nails normal, no deformity : kidney or bladder not palpable Access: permacath Labs/imaging reviewed. Past medical history, past surgical history, family history, social history, allergy reviewed and noted as below Family Hx: no hx of CKD. Non contributory Past Patient History - Infectious Disease Hx of Infectious Diseases: None - Tetanus Immunizations Tetanus Immunization: >10 years Ago - Past Medical History & Family History Past Medical History?: Yes - Past Social History Smoking Status: Never Smoked - CARDIAC Hx Atrial Fibrillation: Yes Hx Cardia Arrhythmia: Yes Hx Congestive Heart Failure: Yes Hx Hypercholesterolemia: Yes Hx Hypertension: Yes - PULMONARY Hx Asthma: Yes Hx Bronchitis: Yes Hx Chronic Obstructive Pulmonary Disease (COPD): Yes Hx Pneumonia: Yes - NEUROLOGICAL Hx Alzheimer's Disease: Yes Hx Seizures: Yes - HEENT Hx HEENT Problems: Yes Hx Blind: Yes (legally blind) Hx Cataracts: Yes - RENAL Hx Chronic Kidney Disease: Yes - ENDOCRINE/METABOLIC Hx Hyperthyroidism: No Hx Hypothyroidism: Yes - HEMATOLOGICAL/ONCOLOGICAL Hx Anemia: Yes - INTEGUMENTARY Hx Dermatological Problems: No - MUSCULOSKELETAL/RHEUMATOLOGICAL Hx Arthritis: Yes - GASTROINTESTINAL Hx Gall Bladder Disease: Yes Hx Gastritis: Yes - GENITOURINARY/GYNECOLOGICAL Hx Sexually Transmitted Disorders: No - PSYCHIATRIC Hx Anxiety: Yes Hx Depression: Yes Hx Substance Use: No - SURGICAL HISTORY Hx Cholecystectomy: Yes (2011) 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/2009) Hx Coronary Stent: Yes - ANESTHESIA Hx Anesthesia: Yes Hx Anesthesia Reactions: No Hx Malignant Hyperthermia: No Meds Allergies/Adverse Reactions: Allergies Allergy/AdvReac Type Severity Reaction Status Date / Time acetaminophen [From Percocet] Allergy RASH Verified 08/16/17 13:43 atenolol Allergy RASH Verified 08/16/17 13:43 digoxin Allergy RASH Verified 08/16/17 13:43 milk Allergy ITCHING Verified 08/16/17 13:43 morphine Allergy RASH Verified 08/16/17 13:43 oxycodone HCl [From Percocet] Allergy RASH Verified 08/16/17 13:43 - Medications Medications: Current Medications Albuterol/Ipratropium (Duoneb 3 Mg/0.5 Mg (3 Ml) Ud) 3 ml INH RQ6 [facility] Last Admin: 08/17/17 13:19 Dose: Not Given Amlodipine Besylate (Norvasc) 10 mg PO DAILY [facility] Last Admin: 08/17/17 09:39 Dose: Not Given Aspirin (Aspirin Chewable) 81 mg PO DAILY [facility] Last Admin: 08/17/17 09:37 Dose: 81 mg Calcitriol (Rocaltrol) 0.25 mcg PO TTS [facility] Last Admin: 08/17/17 09:39 Dose: 0.25 mcg Calcium Carbonate (Oscal) 500 mg PO BID [facility] Last Admin: 08/17/17 09:39 Dose: 500 mg Carvedilol (Coreg) 25 mg PO BID [facility] Last Admin: 08/17/17 09:38 Dose: Not Given Clonidine HCl (Catapres-Tts3 0.3 Mg/24 Hr) 1 patch TD Q7D@1000 [facility] Docusate Sodium (Colace) 100 mg PO BID [facility] Last Admin: 08/17/17 09:38 Dose: 100 mg Epoetin Tom (Procrit) 4,000 unit IV TTS [facility] Ergocalciferol (Drisdol 50,000 Intl Units Cap) 1 cap PO Q7D [facility] Hydromorphone HCl (Dilaudid) 1 mg IVP Q4H PRN PRN Reason: Pain Last Admin: 08/17/17 10:07 Dose: 1 mg Insulin Aspart (Novolog) 5 unit SC ACTID [facility] Last Admin: 08/17/17 13:18 Dose: Not Given Insulin Glargine (Lantus) 10 unit SC HS [facility] Last Admin: 08/16/17 22:05 Dose: 10 units Lactulose (Enulose) 20 gm PO DAILY [facility] Last Admin: 08/17/17 09:39 Dose: 20 gm Levetiracetam (Keppra) 500 mg PO BID [facility] Last Admin: 08/17/17 09:39 Dose: 500 mg Montelukast Sodium (Singulair) 10 mg PO HS [facility] Last Admin: 08/16/17 22:05 Dose: 10 mg Pantoprazole Sodium (Protonix Ec Tab) 40 mg PO DAILY [facility] Last Admin: 08/17/17 09:39 Dose: 40 mg Rosuvastatin Calcium (Crestor) 10 mg PO HS [facility] Last Admin: 08/16/17 22:05 Dose: 10 mg Sertraline HCl (Zoloft) 50 mg PO DAILY [facility] Last Admin: 08/17/17 09:40 Dose: 50 mg Sevelamer Carbonate (Renvela) 800 mg PO TIDCC [facility] Last Admin: 08/17/17 11:20 Dose: 800 mg Valproate Sodium (Depakene Oral Soln) 250 mg PO QID [facility] Last Admin: 08/17/17 13:18 Dose: Not Given Vitamin B Complex/Vit C/Folic Acid (Nephro-Courtney) 1 tab PO DAILY [facility] Last Admin: 08/17/17 09:39 Dose: 1 tab Results - Vital Signs Recent Vital Signs: Last Vital Signs Temp 97.4 F L 08/17/17 07:50 Pulse 54 L 08/17/17 07:50 Resp 20 08/17/17 07:50 BP 148/52 L 08/17/17 09:38 Pulse Ox 100 08/17/17 07:50 - Labs Result Diagrams: 08/16/17 15:22 08/16/17 15:22 Labs: Laboratory Results - last 24 hr 08/16/17 08/16/17 08/16/17 15:22 15:22 15:22 WBC 10.9 H RBC 3.81 L Hgb 10.7 L Hct 33.8 L MCV 88.9 MCH 28.1 MCHC 31.7 L RDW 21.0 H Plt Count 187 MPV 9.3 Neut % (Auto) 64.2 Lymph % (Auto) 25.1 [place] % (Auto) 6.4 Eos % (Auto) 3.4 Baso % (Auto) 0.9 Neut # 7.0 Lymph # 2.7 [place] # 0.7 Eos # 0.4 Baso # 0.1 PT 12.1 INR 1.1 APTT 30 Sodium 136 Potassium 5.4 H Chloride 101 Carbon Dioxide 28 Anion Gap 12 BUN 49 H Creatinine 4.8 H Est GFR ( Amer) 17 Est GFR (Non-Af Amer) 14 POC Glucose (mg/dL) Random Glucose 148 H Calcium 7.9 L Phosphorus 5.2 H Magnesium 1.8 Total Bilirubin 0.4 AST 22 ALT 29 Alkaline Phosphatase 199 H D Total Creatine Kinase 59 CK-MB (Mass) 1.46 Troponin I 0.1080 NT-Pro-B Natriuret Pep 98734 H Total Protein 7.7 Albumin 3.7 Globulin 4.0 H Albumin/Globulin Ratio 0.9 L 08/16/17 08/17/17 08/17/17 21:33 06:20 06:29 WBC RBC Hgb Hct MCV MCH MCHC RDW Plt Count MPV Neut % (Auto) Lymph % (Auto) [place] % (Auto) Eos % (Auto) Baso % (Auto) Neut # Lymph # [place] # Eos # Baso # PT INR APTT Sodium Potassium Chloride Carbon Dioxide Anion Gap BUN Creatinine Est GFR ( Amer) Est GFR (Non-Af Amer) POC Glucose (mg/dL) 297 H 85 Random Glucose Calcium Phosphorus Magnesium Total Bilirubin AST ALT Alkaline Phosphatase Total Creatine Kinase 39 L CK-MB (Mass) 1.64 Troponin I 0.0950 NT-Pro-B Natriuret Pep Total Protein Albumin Globulin Albumin/Globulin Ratio 08/17/17 11:51 WBC RBC Hgb Hct MCV MCH MCHC RDW Plt Count MPV Neut % (Auto) Lymph % (Auto) [place] % (Auto) Eos % (Auto) Baso % (Auto) Neut # Lymph # [place] # Eos # Baso # PT INR APTT Sodium Potassium Chloride Carbon Dioxide Anion Gap BUN Creatinine Est GFR ( Amer) Est GFR (Non-Af Amer) POC Glucose (mg/dL) 98 Random Glucose Calcium Phosphorus Magnesium Total Bilirubin AST ALT Alkaline Phosphatase Total Creatine Kinase CK-MB (Mass) Troponin I NT-Pro-B Natriuret Pep Total Protein Albumin Globulin Albumin/Globulin Ratio
--- NOTE | 2017-08-17 14:26 | CP.PCM.CON ---
History of Present Illness - History of Present Illness History of Present Illness: Patient presents with CP described as sharp, aching and localized to central chest > states had episode at home but now resolved 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 moderate pulmonary stenosis Chronic diastolic dysfunction grade 3 Chronic pain Hx of non-compliance with meds and on occasion HD Past Patient History - Infectious Disease Hx of Infectious Diseases: None - Tetanus Immunizations Tetanus Immunization: >10 years Ago - Past Medical History & Family History Past Medical History?: Yes - Past Social History Smoking Status: Never Smoked - CARDIAC Hx Atrial Fibrillation: Yes Hx Cardia Arrhythmia: Yes Hx Congestive Heart Failure: Yes Hx Hypercholesterolemia: Yes Hx Hypertension: Yes - PULMONARY Hx Asthma: Yes Hx Bronchitis: Yes Hx Chronic Obstructive Pulmonary Disease (COPD): Yes Hx Pneumonia: Yes - NEUROLOGICAL Hx Alzheimer's Disease: Yes Hx Seizures: Yes - HEENT Hx HEENT Problems: Yes Hx Blind: Yes (legally blind) Hx Cataracts: Yes - RENAL Hx Chronic Kidney Disease: Yes - ENDOCRINE/METABOLIC Hx Hyperthyroidism: No Hx Hypothyroidism: Yes - HEMATOLOGICAL/ONCOLOGICAL Hx Anemia: Yes - INTEGUMENTARY Hx Dermatological Problems: No - MUSCULOSKELETAL/RHEUMATOLOGICAL Hx Arthritis: Yes - GASTROINTESTINAL Hx Gall Bladder Disease: Yes Hx Gastritis: Yes - GENITOURINARY/GYNECOLOGICAL Hx Sexually Transmitted Disorders: No - PSYCHIATRIC Hx Anxiety: Yes Hx Depression: Yes Hx Substance Use: No - SURGICAL HISTORY Hx Cholecystectomy: Yes (2011) 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/2009) Hx Coronary Stent: Yes - ANESTHESIA Hx Anesthesia: Yes Hx Anesthesia Reactions: No Hx Malignant Hyperthermia: No Meds Allergies/Adverse Reactions: Allergies Allergy/AdvReac Type Severity Reaction Status Date / Time acetaminophen [From Percocet] Allergy RASH Verified 08/16/17 13:43 atenolol Allergy RASH Verified 08/16/17 13:43 digoxin Allergy RASH Verified 08/16/17 13:43 milk Allergy ITCHING Verified 08/16/17 13:43 morphine Allergy RASH Verified 12/15/17 13:43 oxycodone HCl [From Percocet] Allergy RASH Verified 08/16/17 13:43 - Medications Medications: Current Medications Albuterol/Ipratropium (Duoneb 3 Mg/0.5 Mg (3 Ml) Ud) 3 ml INH RQ6 [facility] Last Admin: 08/17/17 13:19 Dose: Not Given Amlodipine Besylate (Norvasc) 10 mg PO DAILY [facility] Last Admin: 08/17/17 09:39 Dose: Not Given Aspirin (Aspirin Chewable) 81 mg PO DAILY [facility] Last Admin: 08/17/17 09:37 Dose: 81 mg Calcitriol (Rocaltrol) 0.25 mcg PO TTS [facility] Last Admin: 08/17/17 09:39 Dose: 0.25 mcg Calcium Carbonate (Oscal) 500 mg PO BID [facility] Last Admin: 08/17/17 09:39 Dose: 500 mg Carvedilol (Coreg) 25 mg PO BID [facility] Last Admin: 08/17/17 09:38 Dose: Not Given Clonidine HCl (Catapres-Tts3 0.3 Mg/24 Hr) 1 patch TD Q7D@1000 [facility] Docusate Sodium (Colace) 100 mg PO BID [facility] Last Admin: 08/17/17 09:38 Dose: 100 mg Epoetin Tom (Procrit) 4,000 unit IV TTS [facility] Ergocalciferol (Drisdol 50,000 Intl Units Cap) 1 cap PO Q7D [facility] Hydromorphone HCl (Dilaudid) 1 mg IVP Q4H PRN PRN Reason: Pain Last Admin: 08/17/17 10:07 Dose: 1 mg Insulin Aspart (Novolog) 5 unit SC ACTID [facility] Last Admin: 08/17/17 13:18 Dose: Not Given Insulin Glargine (Lantus) 10 unit SC HS [facility] Last Admin: 08/16/17 22:05 Dose: 10 units Lactulose (Enulose) 20 gm PO DAILY [facility] Last Admin: 08/17/17 09:39 Dose: 20 gm Levetiracetam (Keppra) 500 mg PO BID [facility] Last Admin: 08/17/17 09:39 Dose: 500 mg Montelukast Sodium (Singulair) 10 mg PO HS [facility] Last Admin: 08/16/17 22:05 Dose: 10 mg Pantoprazole Sodium (Protonix Ec Tab) 40 mg PO DAILY [facility] Last Admin: 08/17/17 09:39 Dose: 40 mg Rosuvastatin Calcium (Crestor) 10 mg PO HS [facility] Last Admin: 08/16/17 22:05 Dose: 10 mg Sertraline HCl (Zoloft) 50 mg PO DAILY [facility] Last Admin: 08/17/17 09:40 Dose: 50 mg Sevelamer Carbonate (Renvela) 800 mg PO TIDCC [facility] Last Admin: 08/17/17 11:20 Dose: 800 mg Valproate Sodium (Depakene Oral Soln) 250 mg PO QID [facility] Last Admin: 08/17/17 13:18 Dose: Not Given Vitamin B Complex/Vit C/Folic Acid (Nephro-Courtney) 1 tab PO DAILY [facility] Last Admin: 08/17/17 09:39 Dose: 1 tab Physical Exam - Eye Exam Eye Exam: absent: Normal appearance - ENT Exam ENT Exam: Normal Oropharynx - Respiratory Exam Respiratory Exam: Rhonchi, NORMAL BREATHING PATTERN. absent: Rales - Cardiovascular Exam Cardiovascular Exam: REGULAR RHYTHM, +S1, +S2, Systolic Murmur - Psychiatric Exam Psychiatric exam: Depressed - Skin Skin Exam: Warm Results - Vital Signs Recent Vital Signs: Last Vital Signs Temp 97.4 F L 08/17/17 07:50 Pulse 54 L 08/17/17 07:50 Resp 20 08/17/17 07:50 BP 148/52 L 08/17/17 09:38 Pulse Ox 100 08/17/17 07:50 - Labs Result Diagrams: 08/16/17 15:22 08/16/17 15:22 Labs: Laboratory Results - last 24 hr 08/16/17 08/16/17 08/16/17 15:22 15:22 15:22 WBC 10.9 H RBC 3.81 L Hgb 10.7 L Hct 33.8 L MCV 88.9 MCH 28.1 MCHC 31.7 L RDW 21.0 H Plt Count 187 MPV 9.3 Neut % (Auto) 64.2 Lymph % (Auto) 25.1 Hyde % (Auto) 6.4 Eos % (Auto) 3.4 Baso % (Auto) 0.9 Neut # 7.0 Lymph # 2.7 Hyde # 0.7 Eos # 0.4 Baso # 0.1 PT 12.1 INR 1.1 APTT 30 Sodium 136 Potassium 5.4 H Chloride 101 Carbon Dioxide 28 Anion Gap 12 BUN 49 H Creatinine 4.8 H Est GFR ( Amer) 17 Est GFR (Non-Af Amer) 14 POC Glucose (mg/dL) Random Glucose 148 H Calcium 7.9 L Phosphorus 5.2 H Magnesium 1.8 Total Bilirubin 0.4 AST 22 ALT 29 Alkaline Phosphatase 199 H D Total Creatine Kinase 59 CK-MB (Mass) 1.46 Troponin I 0.1080 NT-Pro-B Natriuret Pep 52556 H Total Protein 7.7 Albumin 3.7 Globulin 4.0 H Albumin/Globulin Ratio 0.9 L 08/16/17 08/17/17 08/17/17 21:33 06:20 06:29 WBC RBC Hgb Hct MCV MCH MCHC RDW Plt Count MPV Neut % (Auto) Lymph % (Auto) Hyde % (Auto) Eos % (Auto) Baso % (Auto) Neut # Lymph # Hyde # Eos # Baso # PT INR APTT Sodium Potassium Chloride Carbon Dioxide Anion Gap BUN Creatinine Est GFR ( Amer) Est GFR (Non-Af Amer) POC Glucose (mg/dL) 297 H 85 Random Glucose Calcium Phosphorus Magnesium Total Bilirubin AST ALT Alkaline Phosphatase Total Creatine Kinase 39 L CK-MB (Mass) 1.64 Troponin I 0.0950 NT-Pro-B Natriuret Pep Total Protein Albumin Globulin Albumin/Globulin Ratio 08/17/17 11:51 WBC RBC Hgb Hct MCV MCH MCHC RDW Plt Count MPV Neut % (Auto) Lymph % (Auto) Hyde % (Auto) Eos % (Auto) Baso % (Auto) Neut # Lymph # Hyde # Eos # Baso # PT INR APTT Sodium Potassium Chloride Carbon Dioxide Anion Gap BUN Creatinine Est GFR ( Amer) Est GFR (Non-Af Amer) POC Glucose (mg/dL) 98 Random Glucose Calcium Phosphorus Magnesium Total Bilirubin AST ALT Alkaline Phosphatase Total Creatine Kinase CK-MB (Mass) Troponin I NT-Pro-B Natriuret Pep Total Protein Albumin Globulin Albumin/Globulin Ratio Assessment & Plan - Assessment and Plan (Free Text) Assessment: 37 y/o with transgender phenotype > DM brittle poorly controlled and hx of non-compliance > HTN is chronic and stable; with hx of non-compliance and sporadic lability > ESRD on HD with hx of non-compliance and missed sessions > PVD s/p bilateral BKA due to recurrent infections and progressive gangrene and non-healing ulcers > Legally blind Coronary artery disease s/p CABG and subsequent PCI all grafts are closed > He remains with preserved LV function and advanced diastolic dysfunction despite diffuse small vessel CAD (too small for PCI) > He is not having any angina or advanced CHF > Medical therapy remains his most important and sole treatment option at this stage. > Continue ASA as tolerated, imdur, coreg, high intensity statin; ranexa and titrate these meds as tolerated to achieve optimal BP and HR control. (<120/80 and HR <65). > Troponin negative for any ACS, EKG shows chronic LVH with strain pattern, NSR * He unfortunately is not a candidate for any surgical or percutaneous therapy. * He has had hx of atrial catheter related thrombus in past ---> he was challenged with AC on many occasions but due to GI bleed deemed unsafe * he has known documented hx of parx AFLUTTER/AFIB He should be on amiodarone 200 daily to mAINTAIN SINUS RHYTHM Conservative rx and d/c home when stable. WILL SIGN OFF CALL IF QUESTIONS
[2017-08-17] MEDS: EPOETIN ALFA 4,000 UNIT/ML ML Dialysis IV SCH (16:25)
[2017-08-17] MEDS: (Lantus) Insulin Glargine, Recombinant SC SCH (22:38)
[2017-08-18] MEDS: Albuterol-Ipratrop 3 mg / 0.5 (3 ml) UD INH SCH ×4 (01:51→19:37)
[2017-08-18] MEDS: HYDROmorphone 0.5 mg/0.5 ml ISec IVP PRN ×2 (02:37→06:41)
[2017-08-18] MEDS: (Novolog) Insulin Aspart, Recombinant 100 u/ml 10 ml vial SC SCH ×3 (07:30→17:55)
[2017-08-18] MEDS: Multivitamin Vitamin B Complex (Nephro-Vite) Tab PO SCH (09:54)
[2017-08-18] MEDS: Pantoprazole 40 mg EC Tab PO SCH (09:55)
[2017-08-18] MEDS: Valproic Acid 250 mg/5 ml UD Cup PO SCH ×4 (09:55→22:12)
[2017-08-18] MEDS ORDERED: Influenza Vaccine 60 mcg/0.5 mL SYR (4YR UP) IM ONE (10:00)
--- NOTE | 2017-08-18 12:25 | CP.PCM.PN ---
Subjective - Date & Time of Evaluation Date of Evaluation: 08/18/17 Time of Evaluation: 12:23 - Subjective Subjective: less chest pain sob depressed because he canot see the food Objective - Vital Signs/Intake and Output Vital Signs (last 24 hours): Temp Pulse Resp BP Pulse Ox 98.2 F 57 L 20 112/69 100 08/18/17 12:04 08/18/17 12:04 08/18/17 12:04 08/18/17 12:04 08/18/17 12:04 - Medications Medications: Current Medications Albuterol/Ipratropium (Duoneb 3 Mg/0.5 Mg (3 Ml) Ud) 3 ml INH RQ6 [facility] Last Admin: 08/18/17 07:37 Dose: 3 ml Amlodipine Besylate (Norvasc) 10 mg PO DAILY [facility] Last Admin: 08/18/17 09:54 Dose: 10 mg Aspirin (Aspirin Chewable) 81 mg PO DAILY [facility] Last Admin: 08/18/17 09:55 Dose: 81 mg Calcitriol (Rocaltrol) 0.25 mcg PO TTS [facility] Last Admin: 08/17/17 09:39 Dose: 0.25 mcg Calcium Carbonate (Oscal) 500 mg PO BID [facility] Last Admin: 08/18/17 09:55 Dose: 500 mg Carvedilol (Coreg) 25 mg PO BID [facility] Last Admin: 08/18/17 09:55 Dose: Not Given Clonidine HCl (Catapres-Tts3 0.3 Mg/24 Hr) 1 patch TD Q7D@1000 [facility] Docusate Sodium (Colace) 100 mg PO BID [facility] Last Admin: 08/18/17 09:55 Dose: 100 mg Epoetin Tom (Procrit) 4,000 unit IV TTS [facility] Last Admin: 08/17/17 16:25 Dose: 4,000 unit Ergocalciferol (Drisdol 50,000 Intl Units Cap) 1 cap PO Q7D [facility] Hydromorphone HCl (Dilaudid) 1 mg IVP Q4H PRN PRN Reason: Pain Last Admin: 08/18/17 11:01 Dose: 1 mg Insulin Aspart (Novolog) 5 unit SC ACTID [facility] Last Admin: 08/18/17 07:30 Dose: Not Given Insulin Glargine (Lantus) 10 unit SC HS [facility] Last Admin: 08/17/17 22:38 Dose: 10 units Lactulose (Enulose) 20 gm PO DAILY [facility] Last Admin: 08/18/17 09:55 Dose: 20 gm Levetiracetam (Keppra) 500 mg PO BID [facility] Last Admin: 08/18/17 09:54 Dose: 500 mg Montelukast Sodium (Singulair) 10 mg PO HS [facility] Last Admin: 08/17/17 22:36 Dose: 10 mg Pantoprazole Sodium (Protonix Ec Tab) 40 mg PO DAILY [facility] Last Admin: 08/18/17 09:55 Dose: 40 mg Rosuvastatin Calcium (Crestor) 10 mg PO HS [facility] Last Admin: 08/17/17 22:38 Dose: 10 mg Sertraline HCl (Zoloft) 50 mg PO DAILY [facility] Last Admin: 08/18/17 09:55 Dose: 50 mg Sevelamer Carbonate (Renvela) 800 mg PO TIDCC [facility] Last Admin: 08/18/17 09:54 Dose: 800 mg Valproate Sodium (Depakene Oral Soln) 250 mg PO QID [facility] Last Admin: 08/18/17 09:55 Dose: 250 mg Vitamin B Complex/Vit C/Folic Acid (Nephro-Courtney) 1 tab PO DAILY [facility] Last Admin: 08/18/17 09:54 Dose: 1 tab - Labs Labs: 08/16/17 15:22 08/16/17 15:22 PT 12.1 SECONDS (9.7-12.2) 08/16/17 15:22 INR 1.1 08/16/17 15:22 APTT 30 SECONDS (21-34) 08/16/17 15:22 - Constitutional Appears: Non-toxic - Head Exam Head Exam: NORMAL INSPECTION - Eye Exam Eye Exam: Normal appearance Pupil Exam: NORMAL ACCOMODATION - Respiratory Exam Respiratory Exam: Decreased Breath Sounds - Cardiovascular Exam Cardiovascular Exam: REGULAR RHYTHM, +S1, +S2, +S4 - GI/Abdominal Exam GI & Abdominal Exam: Normal Bowel Sounds - Rectal Exam Rectal Exam: NORMAL INSPECTION - Back Exam Back Exam: CVA tenderness (L) - Psychiatric Exam Psychiatric exam: Depressed - Skin Skin Exam: Dry Assessment and Plan - Assessment and Plan (Free Text) Assessment: cad dmid esrf deprssion chf cont curent treatment
[2017-08-18] MEDS: (Lantus) Insulin Glargine, Recombinant SC SCH (22:06)
[2017-08-19] MEDS: Albuterol-Ipratrop 3 mg / 0.5 (3 ml) UD INH SCH ×4 (01:45→20:02)
[2017-08-19] MEDS: (Novolog) Insulin Aspart, Recombinant 100 u/ml 10 ml vial SC SCH ×3 (08:37→18:35)
[2017-08-19] MEDS ORDERED: Ergocalciferol 50,000 Intl Units Cap PO SCH (10:00)
[2017-08-19] MEDS: Pantoprazole 40 mg EC Tab PO SCH (10:51)
[2017-08-19] MEDS: Valproic Acid 250 mg/5 ml UD Cup PO SCH ×4 (10:52→21:31)
[2017-08-19] MEDS: Multivitamin Vitamin B Complex (Nephro-Vite) Tab PO SCH (10:52)
--- NOTE | 2017-08-19 15:31 | CP.PCM.PN ---
Subjective - Date & Time of Evaluation Date of Evaluation: 08/19/17 Time of Evaluation: 15:31 - Subjective Subjective: Pt seen and examined plan for HD tomorrow AM Objective - Vital Signs/Intake and Output Vital Signs (last 24 hours): Temp Pulse Resp BP Pulse Ox 98.5 F 69 20 125/70 94 L 08/19/17 08:11 08/19/17 11:40 08/19/17 08:11 08/19/17 10:52 08/19/17 08:11 Intake and Output: 08/19/17 08/19/17 06:59 18:59 Intake Total 400 Balance 400 - Medications Medications: Current Medications Albuterol/Ipratropium (Duoneb 3 Mg/0.5 Mg (3 Ml) Ud) 3 ml INH RQ6 [facility] Last Admin: 08/19/17 13:39 Dose: Not Given Amlodipine Besylate (Norvasc) 10 mg PO DAILY [facility] Last Admin: 08/19/17 10:52 Dose: 10 mg Aspirin (Aspirin Chewable) 81 mg PO DAILY [facility] Last Admin: 08/19/17 10:52 Dose: 81 mg Calcitriol (Rocaltrol) 0.25 mcg PO TTS [facility] Last Admin: 08/17/17 09:39 Dose: 0.25 mcg Calcium Carbonate (Oscal) 500 mg PO BID [facility] Last Admin: 08/19/17 10:52 Dose: 500 mg Carvedilol (Coreg) 25 mg PO BID [facility] Last Admin: 08/19/17 10:52 Dose: 25 mg Clonidine HCl (Catapres-Tts3 0.3 Mg/24 Hr) 1 patch TD Q7D@1000 [facility] Docusate Sodium (Colace) 100 mg PO BID [facility] Last Admin: 08/19/17 10:51 Dose: 100 mg Epoetin Tom (Procrit) 4,000 unit IV TTS [facility] Last Admin: 08/17/17 16:25 Dose: 4,000 unit Ergocalciferol (Drisdol 50,000 Intl Units Cap) 1 cap PO Q7D [facility] Last Admin: 08/19/17 10:52 Dose: 1 cap Heparin Sodium (Porcine) (Heparin) 5,000 units SC Q12 [facility] Last Admin: 08/19/17 14:12 Dose: Not Given Hydromorphone HCl (Dilaudid) 1 mg IVP Q4H PRN PRN Reason: Pain Last Admin: 08/19/17 14:50 Dose: 1 mg Insulin Aspart (Novolog) 5 unit SC ACTID [facility] Last Admin: 08/19/17 13:14 Dose: Not Given Insulin Glargine (Lantus) 10 unit SC HS [facility] Last Admin: 08/18/17 22:06 Dose: Not Given Lactulose (Enulose) 20 gm PO DAILY [facility] Last Admin: 08/19/17 10:51 Dose: 20 gm Levetiracetam (Keppra) 500 mg PO BID [facility] Last Admin: 08/19/17 10:52 Dose: 500 mg Montelukast Sodium (Singulair) 10 mg PO HS [facility] Last Admin: 08/18/17 22:13 Dose: 10 mg Pantoprazole Sodium (Protonix Ec Tab) 40 mg PO DAILY [facility] Last Admin: 08/19/17 10:51 Dose: 40 mg Rosuvastatin Calcium (Crestor) 10 mg PO HS [facility] Last Admin: 08/18/17 22:12 Dose: 10 mg Sertraline HCl (Zoloft) 50 mg PO DAILY [facility] Last Admin: 08/19/17 10:52 Dose: 50 mg Sevelamer Carbonate (Renvela) 800 mg PO TIDCC [facility] Last Admin: 08/19/17 13:00 Dose: 800 mg Valproate Sodium (Depakene Oral Soln) 250 mg PO QID [facility] Last Admin: 08/19/17 13:23 Dose: 250 mg Vitamin B Complex/Vit C/Folic Acid (Nephro-Courtney) 1 tab PO DAILY [facility] Last Admin: 08/19/17 10:52 Dose: 1 tab - Labs Labs: 08/16/17 15:22 08/16/17 15:22 PT 12.1 SECONDS (9.7-12.2) 08/16/17 15:22 INR 1.1 08/16/17 15:22 APTT 30 SECONDS (21-34) 08/16/17 15:22
--- NOTE | 2017-08-19 17:46 | CP.PCM.PN ---
Subjective - Date & Time of Evaluation Date of Evaluation: 08/19/17 Time of Evaluation: 17:43 - Subjective Subjective: pt lesssob less chest pain Objective - Vital Signs/Intake and Output Vital Signs (last 24 hours): Temp Pulse Resp BP Pulse Ox 98 F 67 22 105/63 100 08/19/17 16:00 08/19/17 16:00 08/19/17 16:00 08/19/17 16:00 08/19/17 16:00 Intake and Output: 08/19/17 08/19/17 06:59 18:59 Intake Total 400 Balance 400 - Medications Medications: Current Medications Albuterol/Ipratropium (Duoneb 3 Mg/0.5 Mg (3 Ml) Ud) 3 ml INH RQ6 [facility] Last Admin: 08/19/17 13:39 Dose: Not Given Amlodipine Besylate (Norvasc) 10 mg PO DAILY [facility] Last Admin: 08/19/17 10:52 Dose: 10 mg Aspirin (Aspirin Chewable) 81 mg PO DAILY [facility] Last Admin: 08/19/17 10:52 Dose: 81 mg Calcitriol (Rocaltrol) 0.25 mcg PO TTS [facility] Last Admin: 08/17/17 09:39 Dose: 0.25 mcg Calcium Carbonate (Oscal) 500 mg PO BID [facility] Last Admin: 08/19/17 10:52 Dose: 500 mg Carvedilol (Coreg) 25 mg PO BID [facility] Last Admin: 08/19/17 10:52 Dose: 25 mg Clonidine HCl (Catapres-Tts3 0.3 Mg/24 Hr) 1 patch TD Q7D@1000 [facility] Docusate Sodium (Colace) 100 mg PO BID [facility] Last Admin: 08/19/17 10:51 Dose: 100 mg Epoetin Tom (Procrit) 4,000 unit IV TTS [facility] Last Admin: 08/17/17 16:25 Dose: 4,000 unit Ergocalciferol (Drisdol 50,000 Intl Units Cap) 1 cap PO Q7D [facility] Last Admin: 08/19/17 10:52 Dose: 1 cap Heparin Sodium (Porcine) (Heparin) 5,000 units SC Q12 [facility] Last Admin: 08/19/17 14:12 Dose: Not Given Hydromorphone HCl (Dilaudid) 1 mg IVP Q4H PRN PRN Reason: Pain Last Admin: 08/19/17 14:50 Dose: 1 mg Insulin Aspart (Novolog) 5 unit SC ACTID [facility] Last Admin: 08/19/17 13:14 Dose: Not Given Insulin Glargine (Lantus) 10 unit SC HS [facility] Last Admin: 08/18/17 22:06 Dose: Not Given Lactulose (Enulose) 20 gm PO DAILY [facility] Last Admin: 08/19/17 10:51 Dose: 20 gm Levetiracetam (Keppra) 500 mg PO BID [facility] Last Admin: 08/19/17 10:52 Dose: 500 mg Montelukast Sodium (Singulair) 10 mg PO HS [facility] Last Admin: 08/18/17 22:13 Dose: 10 mg Pantoprazole Sodium (Protonix Ec Tab) 40 mg PO DAILY [facility] Last Admin: 08/19/17 10:51 Dose: 40 mg Rosuvastatin Calcium (Crestor) 10 mg PO HS [facility] Last Admin: 08/18/17 22:12 Dose: 10 mg Sertraline HCl (Zoloft) 50 mg PO DAILY [facility] Last Admin: 08/19/17 10:52 Dose: 50 mg Sevelamer Carbonate (Renvela) 800 mg PO TIDCC [facility] Last Admin: 08/19/17 13:00 Dose: 800 mg Valproate Sodium (Depakene Oral Soln) 250 mg PO QID [facility] Last Admin: 08/19/17 13:23 Dose: 250 mg Vitamin B Complex/Vit C/Folic Acid (Nephro-Courtney) 1 tab PO DAILY [facility] Last Admin: 08/19/17 10:52 Dose: 1 tab - Labs Labs: 08/16/17 15:22 08/16/17 15:22 PT 12.1 SECONDS (9.7-12.2) 08/16/17 15:22 INR 1.1 08/16/17 15:22 APTT 30 SECONDS (21-34) 08/16/17 15:22 - Constitutional Appears: Non-toxic - Head Exam Head Exam: NORMAL INSPECTION - Eye Exam Eye Exam: Normal appearance Pupil Exam: NORMAL ACCOMODATION - ENT Exam ENT Exam: Mucous Membranes Moist - Neck Exam Neck Exam: Normal Inspection - Respiratory Exam Respiratory Exam: Decreased Breath Sounds, Clear to Ausculation Bilateral - Cardiovascular Exam Cardiovascular Exam: REGULAR RHYTHM - GI/Abdominal Exam GI & Abdominal Exam: Normal Bowel Sounds - Rectal Exam Rectal Exam: NORMAL INSPECTION - Exam Exam: NORMAL INSPECTION - Neurological Exam Neurological Exam: Motor Sensory Deficit, Oriented x3 - Psychiatric Exam Psychiatric exam: Depressed, Normal Affect - Skin Skin Exam: Dry Assessment and Plan - Assessment and Plan (Free Text) Assessment: cad chest pain chf dm esrf htn Plan: improving dialysis in am cont same treatment
[2017-08-19] MEDS: (Lantus) Insulin Glargine, Recombinant SC SCH (21:32)
--- NOTE | 2017-08-19 22:24 | CARD ---
APPROVED REPORT EKG Measurement Heart [id number] <Conclusion> Normal sinus rhythm Left ventricular hypertrophy with repolarization abnormality Abnormal ECG
[2017-08-20] MEDS: Albuterol-Ipratrop 3 mg / 0.5 (3 ml) UD INH SCH ×3 (01:53→13:20)
[2017-08-20] MEDS: (Novolog) Insulin Aspart, Recombinant 100 u/ml 10 ml vial SC SCH ×2 (07:24→12:25)
[2017-08-20 08:52] VITALS: O2SAT 100
[2017-08-20 09:48] VITALS: RESP 16
[2017-08-20] MEDS: Valproic Acid 250 mg/5 ml UD Cup PO SCH ×2 (10:25→14:05)
[2017-08-20] MEDS: Multivitamin Vitamin B Complex (Nephro-Vite) Tab PO SCH (10:26)
[2017-08-20] MEDS: Pantoprazole 40 mg EC Tab PO SCH ×2 (10:27→14:06)
--- NOTE | 2017-08-20 10:39 | CP.PCM.PN ---
Subjective - Date & Time of Evaluation Date of Evaluation: 08/20/17 Time of Evaluation: 10:34 - Subjective Subjective: feels beter less sob no chest pain bs controled bp controled Objective - Vital Signs/Intake and Output Vital Signs (last 24 hours): Temp Pulse Resp BP Pulse Ox 97.8 F 61 16 114/80 100 08/20/17 09:30 08/20/17 09:30 08/20/17 09:30 08/20/17 09:30 08/20/17 09:30 Intake and Output: 08/20/17 08/20/17 06:59 18:59 Intake Total 240 Balance 240 - Medications Medications: Current Medications Albuterol/Ipratropium (Duoneb 3 Mg/0.5 Mg (3 Ml) Ud) 3 ml INH RQ6 [facility] Last Admin: 08/20/17 07:35 Dose: 3 ml Amlodipine Besylate (Norvasc) 10 mg PO DAILY [facility] Last Admin: 08/20/17 10:26 Dose: Not Given Aspirin (Aspirin Chewable) 81 mg PO DAILY [facility] Last Admin: 08/20/17 10:25 Dose: Not Given Calcitriol (Rocaltrol) 0.25 mcg PO TTS [facility] Last Admin: 08/17/17 09:39 Dose: 0.25 mcg Calcium Carbonate (Oscal) 500 mg PO BID [facility] Last Admin: 08/20/17 10:26 Dose: Not Given Carvedilol (Coreg) 25 mg PO BID [facility] Last Admin: 08/20/17 10:25 Dose: Not Given Clonidine HCl (Catapres-Tts3 0.3 Mg/24 Hr) 1 patch TD Q7D@1000 [facility] Docusate Sodium (Colace) 100 mg PO BID [facility] Last Admin: 08/20/17 10:25 Dose: Not Given Epoetin Tom (Procrit) 4,000 unit IV TTS [facility] Last Admin: 08/17/17 16:25 Dose: 4,000 unit Ergocalciferol (Drisdol 50,000 Intl Units Cap) 1 cap PO Q7D [facility] Last Admin: 08/19/17 10:52 Dose: 1 cap Heparin Sodium (Porcine) (Heparin) 5,000 units SC Q12 [facility] Last Admin: 08/20/17 10:26 Dose: Not Given Hydromorphone HCl (Dilaudid) 1 mg IVP Q4H PRN PRN Reason: Pain Last Admin: 08/20/17 06:35 Dose: 1 mg Insulin Aspart (Novolog) 5 unit SC ACTID [facility] Last Admin: 08/20/17 07:24 Dose: Not Given Insulin Glargine (Lantus) 10 unit SC HS [facility] Last Admin: 08/19/17 21:32 Dose: Not Given Lactulose (Enulose) 20 gm PO DAILY [facility] Last Admin: 08/20/17 10:25 Dose: Not Given Levetiracetam (Keppra) 500 mg PO BID [facility] Last Admin: 08/20/17 10:26 Dose: Not Given Montelukast Sodium (Singulair) 10 mg PO HS [facility] Last Admin: 08/19/17 21:32 Dose: 10 mg Pantoprazole Sodium (Protonix Ec Tab) 40 mg PO DAILY [facility] Last Admin: 08/20/17 10:27 Dose: Not Given Rosuvastatin Calcium (Crestor) 10 mg PO [facility] Last Admin: 08/19/17 21:31 Dose: 10 mg Sertraline HCl (Zoloft) 50 mg PO DAILY [facility] Last Admin: 08/20/17 10:27 Dose: Not Given Sevelamer Carbonate (Renvela) 800 mg PO TIDCC [facility] Last Admin: 08/20/17 10:27 Dose: Not Given Valproate Sodium (Depakene Oral Soln) 250 mg PO QID [facility] Last Admin: 08/20/17 10:25 Dose: Not Given Vitamin B Complex/Vit C/Folic Acid (Nephro-Courtney) 1 tab PO DAILY [facility] Last Admin: 08/20/17 10:26 Dose: Not Given - Labs Labs: 08/16/17 15:22 08/16/17 15:22 PT 12.1 SECONDS (9.7-12.2) 08/16/17 15:22 INR 1.1 08/16/17 15:22 APTT 30 SECONDS (21-34) 08/16/17 15:22 - Constitutional Appears: Non-toxic - Head Exam Head Exam: NORMAL INSPECTION - Eye Exam Eye Exam: Conjunctival injection Additional comments: legaly blind - ENT Exam ENT Exam: Mucous Membranes Moist - Neck Exam Neck Exam: Full ROM - Respiratory Exam Respiratory Exam: Clear to Ausculation Bilateral - Cardiovascular Exam Cardiovascular Exam: REGULAR RHYTHM - GI/Abdominal Exam GI & Abdominal Exam: Normal Bowel Sounds - Rectal Exam Rectal Exam: NORMAL INSPECTION - Exam Exam: Bladder Distension (genitalia) - Extremities Exam Additional comments: bilateral amputation - Back Exam Back Exam: NORMAL INSPECTION - Psychiatric Exam Psychiatric exam: Normal Affect - Skin Skin Exam: Pallor Assessment and Plan - Assessment and Plan (Free Text) Assessment: cad chf esrf back pain s/p ampution dmid Plan: will d/c home after dialysis and resume home servise
[2017-08-20] MEDS: EPOETIN ALFA 4,000 UNIT/ML ML Dialysis IV SCH (11:58)
--- NOTE | 2017-08-20 12:05 | CP.PCM.PN ---
Subjective - Date & Time of Evaluation Date of Evaluation: 08/20/17 Time of Evaluation: 12:03 - Subjective Subjective: PT SEEN BY DR. BELL AND CLEARED FOR D/C HOME TODAY AFTER HD. NEW RX SENT TO PT'S PHARMACY FOR THE NEW DOSE AND ROUTE OF THE COREG AND CLONIDINE. PT TO F/U WITH DR. BELL IN THE OFFICE IN 1 WEEK AND IS TO CONTINUE HIS USUAL HD SCHEDULE. SW TO ARRANGE TRANSPORTATION HOME THIS AFTERNOON. NO FURTHER ORDERS. Objective - Vital Signs/Intake and Output Vital Signs (last 24 hours): Temp Pulse Resp BP Pulse Ox 97.8 F 67 16 171/64 H 100 08/20/17 09:30 08/20/17 11:44 08/20/17 09:30 08/20/17 11:45 08/20/17 09:30 Intake and Output: 08/20/17 08/20/17 06:59 18:59 Intake Total 240 Balance 240 - Medications Medications: Current Medications Albuterol/Ipratropium (Duoneb 3 Mg/0.5 Mg (3 Ml) Ud) 3 ml INH RQ6 [facility] Last Admin: 08/20/17 07:35 Dose: 3 ml Amlodipine Besylate (Norvasc) 10 mg PO DAILY [facility] Last Admin: 08/20/17 10:26 Dose: Not Given Aspirin (Aspirin Chewable) 81 mg PO DAILY [facility] Last Admin: 08/20/17 10:25 Dose: Not Given Calcitriol (Rocaltrol) 0.25 mcg PO TTS [facility] Last Admin: 08/17/17 09:39 Dose: 0.25 mcg Calcium Carbonate (Oscal) 500 mg PO BID [facility] Last Admin: 08/20/17 10:26 Dose: Not Given Carvedilol (Coreg) 25 mg PO BID [facility] Last Admin: 08/20/17 10:25 Dose: Not Given Clonidine HCl (Catapres-Tts3 0.3 Mg/24 Hr) 1 patch TD Q7D@1000 [facility] Docusate Sodium (Colace) 100 mg PO BID [facility] Last Admin: 08/20/17 10:25 Dose: Not Given Epoetin Tom (Procrit) 4,000 unit IV TTS [facility] Last Admin: 08/20/17 11:58 Dose: 4,000 unit Ergocalciferol (Drisdol 50,000 Intl Units Cap) 1 cap PO Q7D [facility] Last Admin: 08/19/17 10:52 Dose: 1 cap Heparin Sodium (Porcine) (Heparin) 5,000 units SC Q12 [facility] Last Admin: 08/20/17 10:26 Dose: Not Given Hydromorphone HCl (Dilaudid) 1 mg IVP Q4H PRN PRN Reason: Pain Last Admin: 08/20/17 06:35 Dose: 1 mg Insulin Aspart (Novolog) 5 unit SC ACTID [facility] Last Admin: 08/20/17 07:24 Dose: Not Given Insulin Glargine (Lantus) 10 unit SC HS [facility] Last Admin: 08/19/17 21:32 Dose: Not Given Lactulose (Enulose) 20 gm PO DAILY [facility] Last Admin: 08/20/17 10:25 Dose: Not Given Levetiracetam (Keppra) 500 mg PO BID [facility] Last Admin: 08/20/17 10:26 Dose: Not Given Montelukast Sodium (Singulair) 10 mg PO HS [facility] Last Admin: 08/19/17 21:32 Dose: 10 mg Pantoprazole Sodium (Protonix Ec Tab) 40 mg PO DAILY [facility] Last Admin: 08/20/17 10:27 Dose: Not Given Rosuvastatin Calcium (Crestor) 10 mg PO HS [facility] Last Admin: 08/19/17 21:31 Dose: 10 mg Sertraline HCl (Zoloft) 50 mg PO DAILY [facility] Last Admin: 08/20/17 10:27 Dose: Not Given Sevelamer Carbonate (Renvela) 800 mg PO TIDCC [facility] Last Admin: 08/20/17 10:27 Dose: Not Given Valproate Sodium (Depakene Oral Soln) 250 mg PO QID [facility] Last Admin: 08/20/17 10:25 Dose: Not Given Vitamin B Complex/Vit C/Folic Acid (Nephro-Courtney) 1 tab PO DAILY [facility] Last Admin: 08/20/17 10:26 Dose: Not Given - Labs Labs: 08/16/17 15:22 08/16/17 15:22 PT 12.1 SECONDS (9.7-12.2) 08/16/17 15:22 INR 1.1 08/16/17 15:22 APTT 30 SECONDS (21-34) 08/16/17 15:22
--- NOTE | 2017-08-20 12:07 | PCM.HF ---
Heart Failure Core Measure - Heart Failure Ejection Fraction: 40 % or Greater RAÚL Inhibitor Prescribed: No Contraindication/Reason for not providing: ESRD Beta-Andrew Prescribed: Carvedilol Angiotensin II Receptor Andrew Prescribed: No Contraindication/Reason for not providing: ESRD AnticoagulationTherapy for Atrial Fibrillation/Atrialflutter: No Contraindication/Reason for not providing: HIGH RISK OF BLEEDING Aldosterone Antagonist Prescribed: No Contraindication/Reason for not providing: ESRD Hydralazine Nitrate Prescribed: No Contraindication/Reason for not providing: ESRD Implantable Cardioverter Defibrillator Therapy: No Contraindication/Reason for not providing: EF > 40 Cardiac Resynchronization Therapy Prescribed: No Contraindication/Reason for not providing: EF > 40 - Follow up Will be discharged to: Home Follow Up Date (must be within 7 days from discharge): 08/23/17 Follow Up Time: 09:00
[2017-08-20 13:43] VITALS: BP 198/81
[2017-08-20 13:48] VITALS: TEMP 97.8
[2017-08-20 14:33] VITALS: PULSE 64
--- NOTE | 2017-08-20 14:42 | CP.PCM.PN ---
Subjective - Date & Time of Evaluation Date of Evaluation: 08/20/17 Time of Evaluation: 14:41 - Subjective Subjective: Follow up Nephrology Consultation: Assessment: stable chronic chest pain Diabetic chronic Kidney Disease (E11.22) Hypertensive Chronic Kidney Disease (I12.0) End stage renal disease (N18.6) dependence on hemodialysis (Z99.2) (TTS) via AVF Anemia (D64.9), Hyperphosphatemia (E83.39), Secondary Hyperparathyroidism (E21.1 ), HTN (I12.0) CAD s/p CABG, diastolic CHF, pA flutter/fib, intra-cardiac thrombus, Heparin induced thrombocytopenia, hx of seizure, blindness Plan: routine dialysis today as per TTS schedule. Continue with Nephrovite 1 tab/day. PRBC as needed for anemia. On HANNAH as epogen Continue with phos binders home dose Continue with calcitriol BP control with meds as ordered. Patient not on RAAS skyler, BP labile. K can be high at times Glycemic control, Dialysis consistent diet Further work up/management as per primary team Dose meds/antibiotics (if needed) for ESRD status. Avoid fleets enema/magnesium based laxatives. avoid heparin during HD due to hx of HIT. Thanks for allowing me to participate in care of your patient. Will follow patient with you. Please call if any Qs. Dr Eric Temple Office: [phone] HPI: Pt is a 36 y/o transgender M with hx of ESRD on hemodialysis (TTS) via permacath, chronic anemia, hyperphosphatemia, secondary hyperparathyroidism, Diabetes Mellitus, hypertension, CAD s/p CABG, diastolic CHF, pA flutter/fib, intra-cardiac thrombus, Heparin indueced thrombocytopenia presented with complaints of chronic chest pain and SOB c/o intermittent chronic chest pain denies palpitation, c/o shortness of breath. Physical Examination: General Appearance: Comfortable, in no acute respiratory distress, co-operative . Vitals reviewed and noted as below Head; Atraumatic, normocephalic ENT: no ulcers no thrush. Tongue is midline. Oropharynx: no rash or ulcers. EYES: Pt is blind both eyes Neck; supple no lymphadenopathy, no thyromegaly or bruit Lungs: Normal respiratory rate/effort. Breath sounds bilateral equal clear Heart: normal rate. s1s2 normal. No rub or gallop. Extremities: no edema. No varicose veins. has b/l BKA Neurological: Patient is alert, awake and oriented to person, place and time. No focal deficit. Strength bilateral appropriate and equal Skin: Warm and dry. Normal turgor. No rash. Palpitation: Normal elasticity for age Abdomen: Abdomen is soft. Bowel sounds +. There is no abdominal tenderness, no guarding/rigidity or organomegaly Psych: limited insight and normal affect/mood MSK: no joint tenderness or swelling. Digits and nails normal, no deformity : kidney or bladder not palpable Access: permacath Labs/imaging reviewed. Past medical history, past surgical history, family history, social history, allergy reviewed and noted as below Family Hx: no hx of CKD. Non contributory Objective - Vital Signs/Intake and Output Vital Signs (last 24 hours): Temp Pulse Resp BP Pulse Ox 97.8 F 61 16 198/81 H 100 08/20/17 13:00 08/20/17 13:00 08/20/17 09:30 08/20/17 13:00 08/20/17 09:30 Intake and Output: 08/20/17 08/20/17 06:59 18:59 Intake Total 240 Balance 240 - Medications Medications: Current Medications Albuterol/Ipratropium (Duoneb 3 Mg/0.5 Mg (3 Ml) Ud) 3 ml INH RQ6 [facility] Last Admin: 08/20/17 13:20 Dose: Not Given Amlodipine Besylate (Norvasc) 10 mg PO DAILY [facility] Last Admin: 08/20/17 14:06 Dose: 10 mg Aspirin (Aspirin Chewable) 81 mg PO DAILY [facility] Last Admin: 08/20/17 14:06 Dose: 81 mg Calcitriol (Rocaltrol) 0.25 mcg PO TTS [facility] Last Admin: 08/20/17 14:06 Dose: 0.25 mcg Calcium Carbonate (Oscal) 500 mg PO BID [facility] Last Admin: 08/20/17 10:26 Dose: Not Given Carvedilol (Coreg) 25 mg PO BID [facility] Last Admin: 08/20/17 10:25 Dose: Not Given Clonidine HCl (Catapres-Tts3 0.3 Mg/24 Hr) 1 patch TD Q7D@1000 [facility] Docusate Sodium (Colace) 100 mg PO BID [facility] Last Admin: 08/20/17 10:25 Dose: Not Given Epoetin Tom (Procrit) 4,000 unit IV TTS [facility] Last Admin: 08/20/17 11:58 Dose: 4,000 unit Ergocalciferol (Drisdol 50,000 Intl Units Cap) 1 cap PO Q7D [facility] Last Admin: 08/19/17 10:52 Dose: 1 cap Heparin Sodium (Porcine) (Heparin) 5,000 units SC Q12 [facility] Last Admin: 08/20/17 10:26 Dose: Not Given Hydromorphone HCl (Dilaudid) 1 mg IVP Q4H PRN PRN Reason: Pain Last Admin: 08/20/17 12:31 Dose: 1 mg Insulin Aspart (Novolog) 5 unit SC ACTID [facility] Last Admin: 08/20/17 12:25 Dose: Not Given Insulin Glargine (Lantus) 10 unit SC HS [facility] Last Admin: 08/19/17 21:32 Dose: Not Given Lactulose (Enulose) 20 gm PO DAILY [facility] Last Admin: 08/20/17 10:25 Dose: Not Given Levetiracetam (Keppra) 500 mg PO BID [facility] Last Admin: 08/20/17 10:26 Dose: Not Given Montelukast Sodium (Singulair) 10 mg PO HS [facility] Last Admin: 08/19/17 21:32 Dose: 10 mg Pantoprazole Sodium (Protonix Ec Tab) 40 mg PO DAILY [facility] Last Admin: 08/20/17 14:06 Dose: 40 mg Rosuvastatin Calcium (Crestor) 10 mg PO HS [facility] Last Admin: 08/19/17 21:31 Dose: 10 mg Sertraline HCl (Zoloft) 50 mg PO DAILY [facility] Last Admin: 08/20/17 14:07 Dose: 50 mg Sevelamer Carbonate (Renvela) 800 mg PO TIDCC [facility] Last Admin: 08/20/17 12:26 Dose: Not Given Valproate Sodium (Depakene Oral Soln) 250 mg PO QID [facility] Last Admin: 08/20/17 14:05 Dose: 250 mg Vitamin B Complex/Vit C/Folic Acid (Nephro-Courtney) 1 tab PO DAILY [facility] Last Admin: 08/20/17 10:26 Dose: Not Given - Labs Labs: 08/16/17 15:22 08/16/17 15:22 PT 12.1 SECONDS (9.7-12.2) 08/16/17 15: INR 1.1 08/16/17 15: APTT 30 SECONDS (21-34) 08/16/17 15:22
--- NOTE | 2017-08-21 23:24 | CARD ---
APPROVED REPORT EKG Measurement Heart [id number] <Conclusion> Normal sinus rhythm Minimal voltage criteria for LVH, may be normal variant ST & T wave abnormality, consider lateral ischemia Abnormal ECG
== END 2017-08-20 16:09 | disposition home or self-care (01) | DRG 543 ==
LOC: C.ER 13:33 → C.9E 16:00 → C.6T 16:59 → OBSVTOIN 08-19 10:00
PROVIDERS: ADMIT Internal Medicine; ATTEND Internal Medicine
PROC: 5A1D70Z Performance of Urinary Filtration, Intermittent, Less than 6 Hours Per Day (ICD-10-PCS; principal; 2017-08-20)
DX: I25.10 Atherosclerotic heart disease of native coronary artery without angina pectoris (principal); I50.32 Chronic diastolic (congestive) heart failure; I13.2 Hypertensive heart and chronic kidney disease with heart failure and with stage 5 chronic kidney disease, or end stage renal disease; E11.22 Type 2 diabetes mellitus with diabetic chronic kidney disease; N18.6 End stage renal disease; D75.82 Heparin induced thrombocytopenia (HIT); E87.5 Hyperkalemia; E11.65 Type 2 diabetes mellitus with hyperglycemia; F11.20 Opioid dependence, uncomplicated; J44.9 Chronic obstructive pulmonary disease, unspecified; I48.92 Unspecified atrial flutter; N25.81 Secondary hyperparathyroidism of renal origin; Z95.5 Presence of coronary angioplasty implant and graft; Z99.2 Dependence on renal dialysis; I48.0 Paroxysmal atrial fibrillation; H54.8 Legal blindness, as defined in USA; E03.9 Hypothyroidism, unspecified; Z91.19 Patient's noncompliance with other medical treatment and regimen; Z91.15 Patient's noncompliance with renal dialysis; Z79.4 Long term (current) use of insulin

== ENCOUNTER 2017-08-22 12:33 | Inpatient (IN) | payer OTHER ==
[2017-08-22 12:34] VITALS: PULSE 66; BMI 18.8
--- NOTE | 2017-08-22 13:17 | RAD ---
PROCEDURE: CHEST RADIOGRAPH, 1 VIEW HISTORY: Chest pain COMPARISON: 08/16/2017. FINDINGS: The right-sided dialysis catheter terminates in the right atrium. LUNGS: There is moderate pulmonary venous congestion. There is consolidation in the left lower lobe. PLEURA: No pneumothorax. Suspect small pleural effusions n. CARDIOVASCULAR: The heart remains enlarged. Status post CABG. OSSEOUS STRUCTURES: No significant abnormalities. VISUALIZED UPPER ABDOMEN: Normal. OTHER FINDINGS: None. IMPRESSION: Mild cardiomegaly and pulmonary venous congestion. Persistent left lower lobe consolidation. Suspect small pleural effusions.
[2017-08-22 14:04] LABS: BASO % 0.4 % (0.0-2.0); EOS # 0.3 K/uL (0.0-0.7); EOS % 3.1 % (0.0-4.0); HEMATOCRIT 29.4 % (35.0-51.0); LYMPH % 19.7 % (20.0-40.0); MEAN CELL VOLUME 88.5 fL (80.0-94.0); MEAN CORPUSCULAR HEMOGLOBIN 29.7 pg (27.0-31.0); MEAN CORPUSCULAR HGB CONC 33.6 g/dL (33.0-37.0); MEAN PLATELET VOLUME 8.9 fL (7.2-11.7); MONO # 0.7 K/uL (0.0-0.8); MONO % 6.9 % (0.0-10.0); RED CELL DISTRIBUTION WIDTH 21.3 % (11.5-14.5); WHITE BLOOD COUNT 10.3 K/uL (4.8-10.8)
--- NOTE | 2017-08-22 14:25 | C.PDOC ---
History Of Present Illness 37 year old male, with PMHx of ESRD on HD (Tues, Thurs, Sat), obstructive CAD, DM, HTN, A fib, CHF BIBA for revaluation of left sided chest pain described as pressure radiating to left side of neck that developed this morning at 11:30. Pt also complaints of generalized weakness, and body aches. He notes that he did not go to dialysis today. Patient denies shortness of breath, nausea, vomiting,diarrhea, fever, abdominal pain, palpitations. Time Seen by Provider: 08/22/17 12:36 Chief Complaint (Nursing): Chest Pain History Per: Patient History/Exam Limitations: no limitations Onset/Duration Of Symptoms: Hrs Current Symptoms Are (Timing): Still Present Severity: Moderate Quality: Pressure, "Pain" Associated Symptoms: denies: Nausea, Dyspnea, Diaphoresis, Syncope Modifying Factors: None Alleviating Factors: None Additional History Per: Patient, Prior Records Past Medical History Reviewed: Historical Data, Nursing Documentation, Vital Signs Vital Signs: Last Vital Signs Temp 98.8 F 08/22/17 12:43 Pulse 96 H 08/22/17 17:47 Resp 18 08/22/17 17:47 BP 187/62 H 08/22/17 17:47 Pulse Ox 100 08/22/17 17:47 - Medical History PMH: Alzheimer's Disease, Anemia, Anxiety, Arthritis, Asthma, Atrial Fibrillation, Bronchitis, CAD, Cardia Arrhythmia, CHF, COPD, CVA, Depression, Diabetes, Deep Vein Thrombosis, Gastritis, Gastrointestinal Ulcer, Gall Bladder Disease, HTN, Hypercholesterolemia, Hypothyroidism, Pneumonia, End Stage Renal Disease, Chronic Kidney Disease, Seizures Surgical History: CABG (12/2009), Cholecystectomy (2011), Coronary Stent - [facility] (08/19/17) ABDOMINAL WALL SINOGRAM (12/31/13) C.A.T. SCAN OF ABDOMEN (10/31/13) CENTRAL VENOUS CATHETER PLACEMENT WITH GUIDANCE (02/10/15) CHANGE OTHER DEVICE IN TRUNK SUBCU/FASCIA, SHEET TESTER APPROACH (06/01/17) DILATE R ANT TIB ART W DRUG-ELUT INTRALUM, PERC (08/12/15) DILATION OF LEFT FEMORAL ARTERY, PERCUTANEOUS APPROACH (07/04/16) DILATION OF RIGHT FEMORAL ARTERY, PERCUTANEOUS APPROACH (08/12/15) DILATION OF RIGHT POPLITEAL ARTERY, PERCUTANEOUS APPROACH (08/12/15) DX ULTRASOUND-HEART (01/05/13) ENTERAL INFUSION OF CONCENTRATED NUT. SUBSTANCES (06/28/13) EXCIS DEBRIDE OF WOUND, INFECT, OR BURN (08/03/14) EXCISION OF STOMACH, ENDO, DIAGN (03/03/17) EXTIRPATION OF MATTER FROM L FEM ART, PERC APPROACH (07/04/16) EXTIRPATION OF MATTER FROM R FEM ART, PERC APPROACH (08/12/15) EXTIRPATION OF MATTER FROM R POPL ART, PERC APPROACH (08/12/15) FLUOROSCOPY OF L LOW EXTREM ART USING L OSM CONTRAST (08/12/15) FLUOROSCOPY OF R LOW EXTREM ART USING L OSM CONTRAST (08/12/15) FLUOROSCOPY OF RIGHT JUGULAR VEINS, GUIDANCE (06/01/17) FREE SKIN GRAFT NEC (08/03/14) HEAD SOFT TISS X-RAY NEC (04/15/13) HEMODIALYSIS (04/28/15) INCIS W REM OF FORIEGN BODY OR DEV FROM SKIN & SUBCUT TISSUE (08/08/13) INSERT INFUSION DEV IN R INT JUGULAR VEIN, PERC (06/01/17) INSERTION OF INFUSION DEV INTO R SUBCLAV VEIN, PERC APPROACH (01/19/16) INSERTION OF INFUSION DEV INTO SUP VENA CAVA, PERC APPROACH (05/17/17) INSPECTION OF UPPER INTESTINAL TRACT, ENDO (03/03/17) INTRODUCE OF OTH THROMBOLYTIC INTO PERIPH ART, PERC APPROACH (08/12/15) LAPAROSCOPIC CHOLECYSTECTOMY (09/21/13) LOC EXC LES METATAR/TAR (06/01/14) PACKED CELL TRANSFUSION (06/01/14) PERCUTAN LIVER ASPIRAT (12/31/13) PERFORMANCE OF URINARY FILTRATION, MULTIPLE (05/17/17) PERFORMANCE OF URINARY FILTRATION, SINGLE (12/18/16) SKIN & SUBQ INCISION NEC (10/24/14) TETANUS TOXOID ADMINIST (06/13/14) TRANSFUSE NONAUT RED BLOOD CELLS IN PERIPH VEIN, PERC (04/09/17) ULTRASONOGRAPHY OF RIGHT AND LEFT HEART (04/09/17) ULTRASONOGRAPHY OF SUPERIOR VENA CAVA, GUIDANCE (02/20/17) VENOUS CATHETERIZATION FOR RENAL DIALYSIS (08/08/13) VENOUS CATHETERIZATION NEC (04/30/13) Family History: States: No Known Family Hx - Social History Hx Tobacco Use: No Hx Alcohol Use: No Hx Substance Use: No - Immunization History Hx Tetanus Toxoid Vaccination: No Hx Influenza Vaccination: No Hx Pneumococcal Vaccination: Yes Review Of Systems Except As Marked, All Systems Reviewed And Found Negative. Constitutional: Positive for: Weakness, Other (body aches). Negative for: Fever , Chills Cardiovascular: Positive for: Chest Pain. Negative for: Palpitations, Light Headedness Respiratory: Negative for: Cough, Shortness of Breath Gastrointestinal: Negative for: Nausea, Vomiting, Abdominal Pain Musculoskeletal: Positive for: Neck Pain (chest pain radiates to neck) Skin: Negative for: Rash Neurological: Negative for: Headache, Dizziness Physical Exam - Physical Exam Appears: Non-toxic, Chronically Ill, Other (In mild pain) Skin: Normal Color, Warm, Dry, No Rash Head: Atraumatic, Normacephalic Eye(s): bilateral: Other (cloudy corneas (cataracts?) B/L ) Oral Mucosa: Moist Chest: Symmetrical, Other (dialysis catheter to right upper chest) Cardiovascular: Murmur (4/6 holosystolic) Respiratory: Normal Breath Sounds, No Rales, No Rhonchi, No Wheezing, Other (Pt speaking in full sentences) Gastrointestinal/Abdominal: Normal Exam, Bowel Sounds, Soft, No Tenderness Extremity: Other (B/L BKAs) Neurological/Psych: Oriented x3 ED Course And Treatment - Laboratory Results Result Diagrams: 08/22/17 13:58 08/22/17 16:01 ECG: Interpreted By Me, Viewed By Me ECG Rhythm: Sinus Rhythm ECG Interpretation: No Acute Changes Interpretation Of ECG: Normal axis. No acute ST/T wave changes. repolarization abnormality Rate From EC (bpm) O2 Sat by Pulse Oximetry: 100 (RA) Pulse Ox Interpretation: Normal - Other Rad CXR X-Ray: Viewed By Me, Read By Radiologist Interpretation: Accession No. : [id number]. Patient Name / ID : SALVATORE VALLADARES / [id number]. Exam Date : 08/22/2017 13:09:06 ( Approved ). Study Comment : Sex / Age : M / 37Y. Creator : Jodie Reyes MD. Dictator : Jodie Reyes MD. Customer Development Manager : Apparel Stock Checker : Jodie Reyes MD. Approver2 : Report Date : 08/22/2017 13:16:19. My Comment : . PROCEDURE: CHEST RADIOGRAPH, 1 VIEW. HISTORY: Chest pain. COMPARISON: 08/16/2017. FINDINGS: The right-sided dialysis catheter terminates in the right atrium. LUNGS: There is moderate pulmonary venous congestion. There is consolidation in the left lower lobe. PLEURA: No pneumothorax. Suspect small pleural effusions n. CARDIOVASCULAR: The heart remains enlarged. Status post CABG. OSSEOUS STRUCTURES: No significant abnormalities. VISUALIZED UPPER ABDOMEN: Normal. OTHER FINDINGS: None. IMPRESSION: Mild cardiomegaly and pulmonary venous congestion. Persistent left lower lobe consolidation. Suspect small pleural effusions. Progress Note: Blood work, CXR, influenza AB ordered and reviewed. Patient was given IV Dilaudid, PO ASA. Patient will need admission for chest pain due to obstructive CAD, as well as needing hemodialysis (hyperkalemic). 4:50pm- Spoke with Dr. Temple (nephrology), will set up dialysis for patient. - Physician Consult Information Physician Contacted: Sybil Li Outcome Of Conversation: Discussed patient with PMD, agrees with obs telemetry for chest pain, r/o ACS, hyperkalemia, ESRD needing HD. Consult entered for cardiology Dr. Tavares. Disposition - Disposition Disposition: HOSPITALIZED Disposition Time: 16:40 Condition: STABLE - Clinical Impression Clinical Impression: CAD (coronary artery disease), ESRD needing dialysis, Hyperkalemia, CAD ( coronary artery disease), Chest pain, rule out acute myocardial infarction - Scribe Statement The provider has reviewed the documentation as recorded by the Scribe Jeff Tavera All medical record entries made by the Scribe were at my direction and personally dictated by me. I have reviewed the chart and agree that the record accurately reflects my personal performance of the history, physical exam, medical decision making, and the department course for this patient. I have also personally directed, reviewed, and agree with the discharge instructions and disposition. Decision To Admit - Pt Status Changed To: Hospital Disposition Of: Observation - . Bed Request Type: Telemetry Admitting Physician: Sybil Li Patient Diagnosis: CAD (coronary artery disease), Chest pain, rule out acute myocardial infarction , ESRD on hemodialysis, Hyperkalemia
[2017-08-22] MEDS ORDERED: HYDROmorphone 1 mg/ml ISec IVP STA (14:26)
[2017-08-22 16:37] LABS: ALB/GLOB RATIO 1.4 (1.0-2.1); BILIRUBIN,TOTAL 0.6 mg/dL (0.2-1.3); CALCIUM 8.7 mg/dl (8.6-10.4); TOTAL PROTEIN 6.8 g/dL (6.3-8.3); TROPONIN I 0.055 ng/mL (0.00-0.120)
--- NOTE | 2017-08-22 18:38 | CP.PCM.HP ---
History of Present Illness - History of Present Illness History of Present Illness: pt came to er for chest pain alot of cough had fever at home hibp Present on Admission - Present on Admission Any Indicators Present on Admission: No Review of Systems - Review of Systems Systems not reviewed;Unavailable: Acuity of Condition - Constitutional Constitutional: As Per HPI - EENT Eyes: As Per HPI Ears: As Per HPI Nose/Mouth/Throat: Sore Throat - Cardiovascular Cardiovascular: Chest Pain at Rest, Dyspnea - Respiratory Respiratory: Cough, Dyspnea, Dyspnea on Exertion, Wheezing, Chest Congestion, Pain with Coughing - Gastrointestinal Gastrointestinal: As Per HPI - Genitourinary Genitourinary: As Per HPI - Reproductive: Male Reproductive:Male: As Per HPI - Musculoskeletal Musculoskeletal: As Per HPI Additional comments: bilateral amputation - Integumentary Integumentary: As Per HPI - Neurological Neurological: Numbness, Memory Loss - Psychiatric Psychiatric: Depression - Endocrine Endocrine: Cold Intolorance - Hematologic/Lymphatic Hematologic: As Per HPI Past Patient History - Infectious Disease Hx of Infectious Diseases: None - Tetanus Immunizations Tetanus Immunization: >10 years Ago - Past Medical History & Family History Past Medical History?: Yes - Past Social History Smoking Status: Never Smoked - CARDIAC Hx Atrial Fibrillation: Yes Hx Cardia Arrhythmia: Yes Hx Congestive Heart Failure: Yes Hx Hypercholesterolemia: Yes Hx Hypertension: Yes - PULMONARY Hx Asthma: Yes Hx Bronchitis: Yes Hx Chronic Obstructive Pulmonary Disease (COPD): Yes Hx Pneumonia: Yes - NEUROLOGICAL Hx Alzheimer's Disease: Yes Hx Seizures: Yes - HEENT Hx HEENT Problems: Yes Hx Blind: Yes (legally blind) Hx Cataracts: Yes - RENAL Hx Chronic Kidney Disease: Yes - ENDOCRINE/METABOLIC Hx Hypothyroidism: Yes - HEMATOLOGICAL/ONCOLOGICAL Hx Anemia: Yes - INTEGUMENTARY Hx Dermatological Problems: No - MUSCULOSKELETAL/RHEUMATOLOGICAL Hx Arthritis: Yes - GASTROINTESTINAL Hx Gall Bladder Disease: Yes Hx Gastritis: Yes - GENITOURINARY/GYNECOLOGICAL Hx Sexually Transmitted Disorders: No - PSYCHIATRIC Hx Anxiety: Yes Hx Depression: Yes Hx Substance Use: No - SURGICAL HISTORY Hx Cholecystectomy: Yes (2011) 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/2009) Hx Coronary Stent: Yes - ANESTHESIA Hx Anesthesia: Yes Hx Anesthesia Reactions: No Hx Malignant Hyperthermia: No Meds Allergies/Adverse Reactions: Allergies Allergy/AdvReac Type Severity Reaction Status Date / Time acetaminophen [From Percocet] Allergy RASH Verified 08/22/17 12:46 atenolol Allergy RASH Verified 08/22/17 12:46 digoxin Allergy RASH Verified 08/22/17 12:46 milk Allergy ITCHING Verified 08/22/17 12:46 morphine Allergy RASH Verified 08/22/17 12:46 oxycodone HCl [From Percocet] Allergy RASH Verified 08/22/17 12:46 Physical Exam - Constitutional Appears: Non-toxic - Head Exam Head Exam: ATRAUMATIC - Eye Exam Eye Exam: Conjunctival injection Additional comments: bilteral blindness - ENT Exam ENT Exam: Mucous Membranes Dry - Neck Exam Neck exam: Positive for: Normal Inspection - Respiratory Exam Respiratory Exam: Decreased Breath Sounds, Rales - Cardiovascular Exam Cardiovascular Exam: REGULAR RHYTHM, +S1, +S2, +S4 - GI/Abdominal Exam GI & Abdominal Exam: Normal Bowel Sounds - Rectal Exam Rectal Exam: NORMAL INSPECTION - 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 - Back Exam Additional comments: bilateral amputation Results - Vital Signs Recent Vital Signs: Last Vital Signs Temp 97.9 F 08/22/17 18:26 Pulse 70 08/22/17 18:26 Resp 20 08/22/17 18:26 BP 149/57 L 08/22/17 18:26 Pulse Ox 100 08/22/17 18:26 - Labs Result Diagrams: 08/22/17 13:58 08/22/17 16:01 Labs: Laboratory Results - last 24 hr 08/22/17 08/22/17 08/22/17 12:53 13:07 13:58 WBC 10.3 RBC 3.32 L Hgb 9.9 L Hct 29.4 L MCV 88.5 MCH 29.7 MCHC 33.6 RDW 21.3 H Plt Count 167 MPV 8.9 Neut % (Auto) 69.9 Lymph % (Auto) 19.7 L [place] % (Auto) 6.9 Eos % (Auto) 3.1 Baso % (Auto) 0.4 Neut # 7.2 H Lymph # 2.0 [place] # 0.7 Eos # 0.3 Baso # 0.0 Sodium Potassium Chloride Carbon Dioxide Anion Gap BUN Creatinine Est GFR ( Amer) Est GFR (Non-Af Amer) POC Glucose (mg/dL) 151 H Random Glucose Calcium Total Bilirubin AST ALT Alkaline Phosphatase Total Creatine Kinase CK-MB (Mass) Troponin I NT-Pro-B Natriuret Pep Total Protein Albumin Globulin Albumin/Globulin Ratio Influenza Typ A,B (EIA) Negative for flu a/b 08/22/17 16:01 WBC RBC Hgb Hct MCV MCH MCHC RDW Plt Count MPV Neut % (Auto) Lymph % (Auto) [place] % (Auto) Eos % (Auto) Baso % (Auto) Neut # Lymph # [place] # Eos # Baso # Sodium 135 Potassium 6.0 H Chloride 99 Carbon Dioxide 23 Anion Gap 19 BUN 55 H Creatinine 5.5 H Est GFR ( Amer) 14 Est GFR (Non-Af Amer) 12 POC Glucose (mg/dL) Random Glucose 153 H Calcium 8.7 Total Bilirubin 0.6 AST 20 ALT 11 L D Alkaline Phosphatase 178 H Total Creatine Kinase 21 L CK-MB (Mass) 1.69 Troponin I 0.0550 NT-Pro-B Natriuret Pep 00966 H Total Protein 6.8 Albumin 3.9 Globulin 2.9 Albumin/Globulin Ratio 1.4 Influenza Typ A,B (EIA) Assessment & Plan - Assessment and Plan (Free Text) Assessment: chest pain cad copd bronchitis dmesrf hyperkaleamia htn Plan: dialysis telemetry and cont med - Date & Time Date: 08/22/17 Time: 18:43
[2017-08-22] MEDS: (Novolin R) Insulin Human Regular 100 units/ml vial SC SCH (22:08)
[2017-08-22] MEDS: (Lantus) Insulin Glargine, Recombinant SC SCH (22:11)
[2017-08-22] MEDS: Valproic Acid 250 mg/5 ml UD Cup PO SCH (22:24)
[2017-08-23] MEDS ORDERED: Heparin25000 units/250ml 1/2NS 25,000 UNITS/250 ML BAG IV PRN ×3 (07:28→08:00)
[2017-08-23 07:39] LABS: TROPONIN I 0.043 ng/mL (0.00-0.120)
[2017-08-23 08:25] LABS: INR 1.1
[2017-08-23] MEDS: (Novolin R) Insulin Human Regular 100 units/ml vial SC SCH ×4 (10:11→22:22)
[2017-08-23] MEDS: Pantoprazole 40 mg EC Tab PO SCH (10:59)
[2017-08-23] MEDS: Valproic Acid 250 mg/5 ml UD Cup PO SCH ×4 (11:05→22:18)
--- NOTE | 2017-08-23 12:49 | CP.PCM.PN ---
Subjective - Date & Time of Evaluation Date of Evaluation: 08/23/17 Time of Evaluation: 12:47 - Subjective Subjective: had more chest pain sob ekg was abnormal st elevation and lateral ischemia started on hep iv Objective - Vital Signs/Intake and Output Vital Signs (last 24 hours): Temp Pulse Resp BP Pulse Ox 97.5 F L 61 18 162/73 H 100 08/23/17 08:00 08/23/17 08:00 08/23/17 08:00 08/23/17 11:00 08/23/17 08:00 Intake and Output: 08/23/17 08/23/17 06:59 18:59 Intake Total 0 Output Total 0 Balance 0 - Medications Medications: Current Medications Amlodipine Besylate (Norvasc) 10 mg PO DAILY [facility] Last Admin: 08/23/17 11:00 Dose: 10 mg Aspirin (Aspirin Chewable) 81 mg PO DAILY [facility] Last Admin: 08/23/17 10:11 Dose: Not Given Calcium Carbonate (Oscal) 500 mg PO BID [facility] Last Admin: 08/23/17 10:59 Dose: 500 mg Carvedilol (Coreg) 25 mg PO BID [facility] Last Admin: 08/23/17 11:00 Dose: 25 mg Clopidogrel Bisulfate (Plavix) 75 mg PO DAILY [facility] Last Admin: 08/23/17 10:59 Dose: 75 mg Epoetin Tom (Procrit) 4,000 unit IV TTS [facility] Hydromorphone HCl (Dilaudid) 1 mg IVP Q6 PRN PRN Reason: Pain, severe (8-10) Last Admin: 08/23/17 12:05 Dose: 1 mg Heparin Sodium/Sodium Chloride (Heparin 37769 Units/250ml 1/2 Normal Saline) 25 ,000 units in 250 mls @ 6.72 mls/hr IV .Q24H PRN; Protocol; 12 U/KG/HR PRN Reason: PROTOCOL Last Admin: 08/23/17 08:45 Dose: 12 u/kg/hr, 6.72 mls/hr Insulin Glargine (Lantus) 18 unit SC HS [facility] Last Admin: 08/22/17 22:11 Dose: 18 units Insulin Human Regular (Novolin R) 0 unit SC ACHS [facility] PRN Reason: Protocol Last Admin: 08/23/17 12:12 Dose: Not Given Isosorbide Mononitrate (Imdur) 60 mg PO DAILY [facility] Last Admin: 08/23/17 11:00 Dose: 60 mg Levetiracetam (Keppra) 500 mg PO BID [facility] Last Admin: 08/23/17 10:59 Dose: 500 mg Montelukast Sodium (Singulair) 10 mg PO DAILY [facility] Last Admin: 08/23/17 11:00 Dose: 10 mg Pantoprazole Sodium (Protonix Ec Tab) 40 mg PO DAILY [facility] Last Admin: 08/23/17 10:59 Dose: 40 mg Rosuvastatin Calcium (Crestor) 10 mg PO HS [facility] Last Admin: 08/22/17 22:11 Dose: 10 mg Sertraline HCl (Zoloft) 50 mg PO DAILY [facility] Last Admin: 08/23/17 10:59 Dose: 50 mg Sevelamer Carbonate (Renvela) 800 mg PO TIDCC [facility] Last Admin: 08/23/17 10:59 Dose: 800 mg Valproate Sodium (Depakene Oral Soln) 250 mg PO QID [facility] Last Admin: 08/23/17 11:05 Dose: 250 mg Vitamin B Complex/Vit C/Folic Acid (Nephro-Courtney) 1 tab PO 0800 [facility] - Labs Labs: 08/22/17 13:58 08/22/17 16:01 PT 12.3 SECONDS (9.7-12.2) H 08/23/17 08:00 INR 1.1 08/23/17 08:00 APTT 35 SECONDS (21-34) H 08/23/17 08:00 - Constitutional Appears: Non-toxic - Head Exam Head Exam: ATRAUMATIC, NORMAL INSPECTION - Eye Exam Eye Exam: Conjunctival injection - ENT Exam ENT Exam: Mucous Membranes Dry - Neck Exam Neck Exam: Full ROM - Respiratory Exam Respiratory Exam: Decreased Breath Sounds, Rales - Cardiovascular Exam Cardiovascular Exam: REGULAR RHYTHM, +S1, +S2, +S4 - Extremities Exam Additional comments: bilateral amputation - Back Exam Back Exam: CVA tenderness (L) - Psychiatric Exam Psychiatric exam: Normal Affect - Skin Skin Exam: Pallor Assessment and Plan - Assessment and Plan (Free Text) Assessment: severe cad chf worse esrf dm Plan: cont as per orders
--- NOTE | 2017-08-23 14:58 | CP.PCM.CON ---
History of Present Illness - History of Present Illness History of Present Illness: 37 year old transgender female 1. HTN 2. Chronic angina 3. CAD s/p CABG and PCI now with closed grafts 4. PVD s/p Bilateral BKA 5. ESRD on HD Review of Systems - Review of Systems All systems: reviewed and no additional remarkable complaints except Past Patient History - Infectious Disease Hx of Infectious Diseases: None - Tetanus Immunizations Tetanus Immunization: >10 years Ago - Past Medical History & Family History Past Medical History?: Yes - Past Social History Smoking Status: Never Smoked - CARDIAC Hx Atrial Fibrillation: Yes Hx Cardia Arrhythmia: Yes Hx Congestive Heart Failure: Yes Hx Hypercholesterolemia: Yes Hx Hypertension: Yes - PULMONARY Hx Asthma: Yes Hx Bronchitis: Yes Hx Chronic Obstructive Pulmonary Disease (COPD): Yes Hx Pneumonia: Yes - NEUROLOGICAL Hx Alzheimer's Disease: Yes Hx Seizures: Yes - HEENT Hx HEENT Problems: Yes Hx Blind: Yes (legally blind) Hx Cataracts: Yes - RENAL Hx Chronic Kidney Disease: Yes - ENDOCRINE/METABOLIC Hx Hypothyroidism: Yes - HEMATOLOGICAL/ONCOLOGICAL Hx Anemia: Yes - INTEGUMENTARY Hx Dermatological Problems: No - MUSCULOSKELETAL/RHEUMATOLOGICAL Hx Arthritis: Yes - GASTROINTESTINAL Hx Gall Bladder Disease: Yes Hx Gastritis: Yes - GENITOURINARY/GYNECOLOGICAL Hx Sexually Transmitted Disorders: No - PSYCHIATRIC Hx Anxiety: Yes Hx Depression: Yes Hx Substance Use: No - SURGICAL HISTORY Hx Cholecystectomy: Yes (2011) 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/2009) Hx Coronary Stent: Yes - ANESTHESIA Hx Anesthesia: Yes Hx Anesthesia Reactions: No Hx Malignant Hyperthermia: No Meds Allergies/Adverse Reactions: Allergies Allergy/AdvReac Type Severity Reaction Status Date / Time acetaminophen [From Percocet] Allergy RASH Verified 08/22/17 12:46 atenolol Allergy RASH Verified 08/22/17 12:46 digoxin Allergy RASH Verified 08/22/17 12:46 milk Allergy ITCHING Verified 08/22/17 12:46 morphine Allergy RASH Verified 08/22/17 12:46 oxycodone HCl [From Percocet] Allergy RASH Verified 08/22/17 12:46 - Medications Medications: Current Medications Albuterol/Ipratropium (Duoneb 3 Mg/0.5 Mg (3 Ml) Ud) 3 ml INH RQ6 [facility] Amlodipine Besylate (Norvasc) 10 mg PO DAILY [facility] Last Admin: 08/23/17 11:00 Dose: 10 mg Aspirin (Aspirin Chewable) 81 mg PO DAILY [facility] Last Admin: 08/23/17 10:11 Dose: Not Given Calcium Carbonate (Oscal) 500 mg PO BID [facility] Last Admin: 08/23/17 10:59 Dose: 500 mg Carvedilol (Coreg) 25 mg PO BID [facility] Last Admin: 08/23/17 11:00 Dose: 25 mg Clopidogrel Bisulfate (Plavix) 75 mg PO DAILY [facility] Last Admin: 08/23/17 10:59 Dose: 75 mg Epoetin Tom (Procrit) 4,000 unit IV TTS [facility] Hydromorphone HCl (Dilaudid) 1 mg IVP Q6 PRN PRN Reason: Pain, severe (8-10) Last Admin: 08/23/17 12:05 Dose: 1 mg Heparin Sodium/Sodium Chloride (Heparin 67713 Units/250ml 1/2 Normal Saline) 25 ,000 units in 250 mls @ 6.72 mls/hr IV .Q24H PRN; Protocol; 12 U/KG/HR PRN Reason: PROTOCOL Last Admin: 08/23/17 08:45 Dose: 12 u/kg/hr, 6.72 mls/hr Insulin Glargine (Lantus) 18 unit SC HS [facility] Last Admin: 08/22/17 22:11 Dose: 18 units Insulin Human Regular (Novolin R) 0 unit SC ACHS [facility] PRN Reason: Protocol Last Admin: 08/23/17 12:12 Dose: Not Given Isosorbide Mononitrate (Imdur) 60 mg PO DAILY [facility] Last Admin: 08/23/17 11:00 Dose: 60 mg Levetiracetam (Keppra) 500 mg PO BID [facility] Last Admin: 08/23/17 10:59 Dose: 500 mg Montelukast Sodium (Singulair) 10 mg PO DAILY [facility] Last Admin: 08/23/17 11:00 Dose: 10 mg Pantoprazole Sodium (Protonix Ec Tab) 40 mg PO DAILY [facility] Last Admin: 08/23/17 10:59 Dose: 40 mg Rosuvastatin Calcium (Crestor) 10 mg PO HS [facility] Last Admin: 08/22/17 22:11 Dose: 10 mg Sertraline HCl (Zoloft) 50 mg PO DAILY [facility] Last Admin: 08/23/17 10:59 Dose: 50 mg Sevelamer Carbonate (Renvela) 800 mg PO TIDCC [facility] Last Admin: 08/23/17 10:59 Dose: 800 mg Valproate Sodium (Depakene Oral Soln) 250 mg PO QID [facility] Last Admin: 08/23/17 13:41 Dose: Not Given Vitamin B Complex/Vit C/Folic Acid (Nephro-Courtney) 1 tab PO 0800 [facility] Physical Exam - Constitutional Appears: Cachectic, Chronically Ill - Head Exam Head Exam: ATRAUMATIC, NORMAL INSPECTION - Eye Exam Eye Exam: absent: Scleral icterus (Legal blindness) - ENT Exam ENT Exam: Mucous Membranes Dry, Normal Exam - Neck Exam Neck exam: Negative for: Lymphadenopathy, Thyromegaly - Respiratory Exam Respiratory Exam: Clear to Auscultation Bilateral, NORMAL BREATHING PATTERN - Cardiovascular Exam Cardiovascular Exam: REGULAR RHYTHM, RRR, +S1, +S4, Systolic Murmur (Left sternal border increases with expiration ). absent: JVD - GI/Abdominal Exam GI & Abdominal Exam: Normal Bowel Sounds. absent: Organomegaly - Extremities Exam Extremities exam: Negative for: calf tenderness, pedal edema - Neurological Exam Neurological exam: Oriented x3 (Lethargic ) - Psychiatric Exam Psychiatric exam: Normal Mood (delayed development) Results - Vital Signs Recent Vital Signs: Last Vital Signs Temp 97.5 F L 08/23/17 08:00 Pulse 73 08/23/17 12:10 Resp 18 08/23/17 08:00 BP 162/73 H 08/23/17 11:00 Pulse Ox 100 08/23/17 08:00 - Labs Result Diagrams: 08/22/17 13:58 08/22/17 16:01 Labs: Laboratory Results - last 24 hr 08/22/17 08/22/17 08/22/17 12:53 16:01 22:01 PT INR APTT Sodium 135 Potassium 6.0 H Chloride 99 Carbon Dioxide 23 Anion Gap 19 BUN 55 H Creatinine 5.5 H Est GFR ( Amer) 14 Est GFR (Non-Af Amer) 12 POC Glucose (mg/dL) 151 H 264 H Random Glucose 153 H Calcium 8.7 Total Bilirubin 0.6 AST 20 ALT 11 L D Alkaline Phosphatase 178 H Total Creatine Kinase 21 L CK-MB (Mass) 1.69 Troponin I 0.0550 NT-Pro-B Natriuret Pep 26036 H Total Protein 6.8 Albumin 3.9 Globulin 2.9 Albumin/Globulin Ratio 1.4 08/23/17 08/23/17 08/23/17 02:18 06:23 06:31 PT INR APTT Sodium Potassium Chloride Carbon Dioxide Anion Gap BUN Creatinine Est GFR ( Amer) Est GFR (Non-Af Amer) POC Glucose (mg/dL) 247 H 159 H Random Glucose Calcium Total Bilirubin AST ALT Alkaline Phosphatase Total Creatine Kinase CK-MB (Mass) Troponin I 0.0430 NT-Pro-B Natriuret Pep 68456 H Total Protein Albumin Globulin Albumin/Globulin Ratio 08/23/17 08/23/17 08:00 11:25 PT 12.3 H INR 1.1 APTT 35 H Sodium Potassium Chloride Carbon Dioxide Anion Gap BUN Creatinine Est GFR ( Amer) Est GFR (Non-Af Amer) POC Glucose (mg/dL) 131 H Random Glucose Calcium Total Bilirubin AST ALT Alkaline Phosphatase Total Creatine Kinase CK-MB (Mass) Troponin I NT-Pro-B Natriuret Pep Total Protein Albumin Globulin Albumin/Globulin Ratio - EKG Data EKG shows normal: Sinus rhythm (LVH non specific st t changes, Q in III, chronic ) - Imaging and Cardiology Chest x-ray Status: Image reviewed by me (Poor inpirtory effort, vascular congestion, + Permacath ) Assessment & Plan - Assessment and Plan (Free Text) Assessment: 37 year old transgender woman chest pain controlled with diluadid chronic angina , non revascularizable CAD with atretic MOLINA graft, All SVG vein grafts were shown to be closed. Consider adding ranexa 500 daily for chest pain. No plan for cardiac catheterizeation . HTN Coreg 25 BID, Norvasc 10, Imdur 60, CAD stop heparin, continue dual anti platelet therapy Paroxysmal atrial fibrillation - resume amiodarone for arrythmia suppression; Too high risk of GI bleed prevents NOAC for CVA prophylaxsis DM - insulin, brilltle diabetic, labile PVD s/p amputations ESRD continue HD, when euvolemic he is cleared for D/C from a cardiac standpoint.
[2017-08-23 15:28] LABS: BASO # 0.1 K/uL (0.0-0.2); BASO % 0.8 % (0.0-2.0); EOS # 0.7 K/uL (0.0-0.7); EOS % 6.7 % (0.0-4.0); LYMPH # 2.9 K/uL (1.0-4.3); LYMPH % 29.7 % (20.0-40.0); MEAN CELL VOLUME 88.5 fL (80.0-94.0); MEAN CORPUSCULAR HEMOGLOBIN 29.3 pg (27.0-31.0); MEAN CORPUSCULAR HGB CONC 33.1 g/dL (33.0-37.0); MEAN PLATELET VOLUME 9.5 fL (7.2-11.7); MONO # 0.8 K/uL (0.0-0.8); MONO % 7.8 % (0.0-10.0); RED CELL DISTRIBUTION WIDTH 20.7 % (11.5-14.5); WHITE BLOOD COUNT 9.8 K/uL (4.8-10.8)
[2017-08-23 15:32] LABS: INR 1.1
--- NOTE | 2017-08-23 15:36 | CP.PCM.PN ---
Subjective - Date & Time of Evaluation Date of Evaluation: 08/23/17 Time of Evaluation: 15:35 - Subjective Subjective: pt planned for dialysis tomorrow had extra session today and short session yesterday D/c plan per primary team. stable from renal perspective Objective - Vital Signs/Intake and Output Vital Signs (last 24 hours): Temp Pulse Resp BP Pulse Ox 97.5 F L 73 18 162/73 H 100 08/23/17 08:00 08/23/17 12:10 08/23/17 08:00 08/23/17 11:00 08/23/17 08:00 Intake and Output: 08/23/17 08/23/17 06:59 18:59 Intake Total 0 650 Output Total 0 Balance 0 650 - Medications Medications: Current Medications Albuterol/Ipratropium (Duoneb 3 Mg/0.5 Mg (3 Ml) Ud) 3 ml INH RQ6 [facility] Amlodipine Besylate (Norvasc) 10 mg PO DAILY [facility] Last Admin: 08/23/17 11:00 Dose: 10 mg Aspirin (Aspirin Chewable) 81 mg PO DAILY [facility] Last Admin: 08/23/17 10:11 Dose: Not Given Calcium Carbonate (Oscal) 500 mg PO BID [facility] Last Admin: 08/23/17 10:59 Dose: 500 mg Carvedilol (Coreg) 25 mg PO BID [facility] Last Admin: 08/23/17 11:00 Dose: 25 mg Clopidogrel Bisulfate (Plavix) 75 mg PO DAILY [facility] Last Admin: 08/23/17 10:59 Dose: 75 mg Epoetin Tom (Procrit) 4,000 unit IV TTS [facility] Hydromorphone HCl (Dilaudid) 1 mg IVP Q6 PRN PRN Reason: Pain, severe (8-10) Last Admin: 08/23/17 12:05 Dose: 1 mg Heparin Sodium/Sodium Chloride (Heparin 22639 Units/250ml 1/2 Normal Saline) 25 ,000 units in 250 mls @ 6.72 mls/hr IV .Q24H PRN; Protocol; 12 U/KG/HR PRN Reason: PROTOCOL Last Admin: 08/23/17 08:45 Dose: 12 u/kg/hr, 6.72 mls/hr Insulin Glargine (Lantus) 18 unit SC [facility] Last Admin: 12/21/17 22:11 Dose: 18 units Insulin Human Regular (Novolin R) 0 unit SC ACHS [facility] PRN Reason: Protocol Last Admin: 08/23/17 12:12 Dose: Not Given Isosorbide Mononitrate (Imdur) 60 mg PO DAILY [facility] Last Admin: 08/23/17 11:00 Dose: 60 mg Levetiracetam (Keppra) 500 mg PO BID [facility] Last Admin: 08/23/17 10:59 Dose: 500 mg Montelukast Sodium (Singulair) 10 mg PO DAILY [facility] Last Admin: 08/23/17 11:00 Dose: 10 mg Pantoprazole Sodium (Protonix Ec Tab) 40 mg PO DAILY [facility] Last Admin: 08/23/17 10:59 Dose: 40 mg Rosuvastatin Calcium (Crestor) 10 mg PO HS [facility] Last Admin: 08/22/17 22:11 Dose: 10 mg Sertraline HCl (Zoloft) 50 mg PO DAILY [facility] Last Admin: 08/23/17 10:59 Dose: 50 mg Sevelamer Carbonate (Renvela) 800 mg PO TIDCC [facility] Last Admin: 08/23/17 10:59 Dose: 800 mg Valproate Sodium (Depakene Oral Soln) 250 mg PO QID [facility] Last Admin: 08/23/17 13:41 Dose: Not Given Vitamin B Complex/Vit C/Folic Acid (Nephro-Courtney) 1 tab PO 0800 [facility] - Labs Labs: 08/23/17 15:14 08/22/17 16:01 PT 12.3 SECONDS (9.7-12.2) H 08/23/17 08:00 INR 1.1 08/23/17 08:00 APTT 35 SECONDS (21-34) H 08/23/17 08:00
[2017-08-23 15:42] LABS: ALB/GLOB RATIO 1.4 (1.0-2.1); BILIRUBIN,TOTAL 0.4 mg/dL (0.2-1.3); CALCIUM 8.2 mg/dl (8.6-10.4); POTASSIUM 5.6 mmol/L (3.6-5.2); TOTAL PROTEIN 5.8 g/dL (6.3-8.3)
[2017-08-23] MEDS: EPOETIN ALFA 4,000 UNIT/ML ML Dialysis IV SCH (18:27)
--- NOTE | 2017-08-23 18:36 | CARD ---
APPROVED REPORT EKG Measurement Heart [id number] [id number] <Conclusion> Normal sinus rhythm Incomplete left bundle branch block Left ventricular hypertrophy with repolarization abnormality ST & T wave abnormality, consider lateral ischemia Abnormal ECG
[2017-08-23] MEDS: Albuterol-Ipratrop 3 mg / 0.5 (3 ml) UD INH SCH (20:45)
[2017-08-23] MEDS: (Lantus) Insulin Glargine, Recombinant SC SCH (22:21)
[2017-08-24] MEDS: Albuterol-Ipratrop 3 mg / 0.5 (3 ml) UD INH SCH ×4 (03:45→19:44)
[2017-08-24] MEDS ORDERED: Metoprolol 1 mg/ml Inj IVP ONE (04:32)
[2017-08-24] MEDS: (Novolin R) Insulin Human Regular 100 units/ml vial SC SCH ×4 (08:25→22:06)
[2017-08-24] MEDS: Multivitamin Vitamin B Complex (Nephro-Vite) Tab PO SCH (08:56)
[2017-08-24] MEDS: Valproic Acid 250 mg/5 ml UD Cup PO SCH ×4 (09:00→22:05)
[2017-08-24] MEDS: Pantoprazole 40 mg EC Tab PO SCH (09:00)
--- NOTE | 2017-08-24 14:51 | CP.PCM.PN ---
Subjective - Date & Time of Evaluation Date of Evaluation: 08/24/17 Time of Evaluation: 14:49 - Subjective Subjective: pt bhas chest pain and palpition today now bp 80 /40 weeke c/o pain all his body Objective - Vital Signs/Intake and Output Vital Signs (last 24 hours): Temp Pulse Resp BP Pulse Ox 97.6 F 66 20 89/44 L 100 08/24/17 09:39 08/24/17 14:45 08/24/17 05:30 08/24/17 14:45 08/24/17 11:17 Intake and Output: 08/24/17 08/24/17 06:59 18:59 Intake Total 600 Balance 600 - Medications Medications: Current Medications Albuterol/Ipratropium (Duoneb 3 Mg/0.5 Mg (3 Ml) Ud) 3 ml INH RQ6 [facility] Last Admin: 08/24/17 13:31 Dose: Not Given Amiodarone HCl (Cordarone) 200 mg PO DAILY [facility] Last Admin: 08/24/17 10:44 Dose: 200 mg Amlodipine Besylate (Norvasc) 10 mg PO DAILY [facility] Last Admin: 08/24/17 09:01 Dose: 10 mg Aspirin (Aspirin Chewable) 81 mg PO DAILY [facility] Last Admin: 08/24/17 09:00 Dose: 81 mg Calcium Carbonate (Oscal) 500 mg PO BID [facility] Last Admin: 08/24/17 09:00 Dose: 500 mg Carvedilol (Coreg) 25 mg PO BID [facility] Last Admin: 08/24/17 09:00 Dose: 25 mg Clopidogrel Bisulfate (Plavix) 75 mg PO DAILY [facility] Last Admin: 08/24/17 10:44 Dose: 75 mg Epoetin Tom (Procrit) 4,000 unit IV TTS [facility] Last Admin: 08/23/17 18:27 Dose: 4,000 unit Hydromorphone HCl (Dilaudid) 1 mg IVP Q6 PRN PRN Reason: Pain, severe (8-10) Last Admin: 08/24/17 08:57 Dose: 1 mg Insulin Glargine (Lantus) 18 unit SC HS [facility] Last Admin: 08/23/17 22:21 Dose: 18 units Insulin Human Regular (Novolin R) 0 unit SC ACHS [facility] PRN Reason: Protocol Last Admin: 08/24/17 12:15 Dose: Not Given Isosorbide Mononitrate (Imdur) 60 mg PO DAILY [facility] Last Admin: 08/24/17 09:00 Dose: 60 mg Levetiracetam (Keppra) 500 mg PO BID [facility] Last Admin: 08/24/17 09:01 Dose: 500 mg Montelukast Sodium (Singulair) 10 mg PO DAILY [facility] Last Admin: 08/24/17 09:00 Dose: 10 mg Pantoprazole Sodium (Protonix Ec Tab) 40 mg PO DAILY [facility] Last Admin: 08/24/17 09:00 Dose: 40 mg Rosuvastatin Calcium (Crestor) 10 mg PO HS [facility] Last Admin: 08/23/17 22:18 Dose: 10 mg Sertraline HCl (Zoloft) 50 mg PO DAILY [facility] Last Admin: 08/24/17 09:00 Dose: 50 mg Sevelamer Carbonate (Renvela) 800 mg PO TIDCC [facility] Last Admin: 08/24/17 13:15 Dose: Not Given Valproate Sodium (Depakene Oral Soln) 250 mg PO QID [facility] Last Admin: 08/24/17 13:16 Dose: Not Given Vitamin B Complex/Vit C/Folic Acid (Nephro-Courtney) 1 tab PO 0800 [facility] Last Admin: 08/24/17 08:56 Dose: 1 tab - Labs Labs: 08/23/17 15:14 08/23/17 15:14 PT 12.9 SECONDS (9.7-12.2) H 08/23/17 15:14 INR 1.1 08/23/17 15:14 APTT 51 SECONDS (21-34) H D 08/23/17 15:14 - Constitutional Appears: Non-toxic, Chronically Ill - Head Exam Head Exam: ATRAUMATIC - Eye Exam Additional comments: blind - ENT Exam ENT Exam: Mucous Membranes Dry - Neck Exam Neck Exam: Full ROM - Respiratory Exam Respiratory Exam: Decreased Breath Sounds - Cardiovascular Exam Cardiovascular Exam: Irregular Rhythm, +S1, +S2, +S4 - GI/Abdominal Exam GI & Abdominal Exam: Normal Bowel Sounds - Rectal Exam Rectal Exam: NORMAL INSPECTION - Back Exam Back Exam: NORMAL INSPECTION - Neurological Exam Neurological Exam: Oriented x3 - Psychiatric Exam Psychiatric exam: Depressed - Skin Skin Exam: Dry Assessment and Plan - Assessment and Plan (Free Text) Assessment: recurent chest pain cad arrythmia chf esrf dmhypotension Plan: stat ekg cont telemetry and treatment
[2017-08-24] MEDS: EPOETIN ALFA 4,000 UNIT/ML ML Dialysis IV SCH (16:02)
[2017-08-24] MEDS: (Lantus) Insulin Glargine, Recombinant SC SCH (22:07)
--- NOTE | 2017-08-24 23:44 | CP.PCM.PN ---
Subjective - Date & Time of Evaluation Date of Evaluation: 08/24/17 Time of Evaluation: 11:00 - Subjective Subjective: renal follow up note no events overnight PE: vitals stable nad no jvd no resp distress s1s2 present abd soft no edema A&P:esrd/dm/htn his usual hd days are tts however he has done 2 days in a row will hold today Objective - Vital Signs/Intake and Output Vital Signs (last 24 hours): Temp Pulse Resp BP Pulse Ox 97.2 F L 72 20 126/63 95 08/24/17 18:59 08/24/17 20:24 08/24/17 18:59 08/24/17 20:24 08/24/17 18:59 Intake and Output: 08/24/17 08/25/17 18:59 06:59 Intake Total 600 240 Balance 600 240 - Medications Medications: Current Medications Albuterol/Ipratropium (Duoneb 3 Mg/0.5 Mg (3 Ml) Ud) 3 ml INH RQ6 [facility] Last Admin: 08/24/17 19:44 Dose: Not Given Amiodarone HCl (Cordarone) 200 mg PO DAILY [facility] Last Admin: 08/24/17 10:44 Dose: 200 mg Amlodipine Besylate (Norvasc) 10 mg PO DAILY [facility] Last Admin: 08/24/17 09:01 Dose: 10 mg Aspirin (Aspirin Chewable) 81 mg PO DAILY [facility] Last Admin: 08/24/17 09:00 Dose: 81 mg Calcium Carbonate (Oscal) 500 mg PO BID [facility] Last Admin: 08/24/17 22:14 Dose: 500 mg Carvedilol (Coreg) 25 mg PO BID [facility] Last Admin: 08/24/17 20:21 Dose: 25 mg Clopidogrel Bisulfate (Plavix) 75 mg PO DAILY [facility] Last Admin: 08/24/17 10:44 Dose: 75 mg Epoetin Tom (Procrit) 4,000 unit IV TTS [facility] Last Admin: 08/24/17 16:02 Dose: 4,000 unit Hydromorphone HCl (Dilaudid) 1 mg IVP Q4H PRN PRN Reason: Pain, moderate (4-7) Last Admin: 08/24/17 20:19 Dose: 1 mg Insulin Glargine (Lantus) 18 unit SC HS [facility] Last Admin: 08/24/17 22:07 Dose: 18 units Insulin Human Regular (Novolin R) 0 unit SC ACHS [facility] PRN Reason: Protocol Last Admin: 08/24/17 22:06 Dose: Not Given Isosorbide Mononitrate (Imdur) 60 mg PO DAILY [facility] Last Admin: 08/24/17 09:00 Dose: 60 mg Levetiracetam (Keppra) 500 mg PO BID [facility] Last Admin: 08/24/17 20:21 Dose: 500 mg Montelukast Sodium (Singulair) 10 mg PO DAILY [facility] Last Admin: 08/24/17 09:00 Dose: 10 mg Pantoprazole Sodium (Protonix Ec Tab) 40 mg PO DAILY [facility] Last Admin: 08/24/17 09:00 Dose: 40 mg Rosuvastatin Calcium (Crestor) 10 mg PO HS [facility] Last Admin: 08/24/17 22:06 Dose: 10 mg Sertraline HCl (Zoloft) 50 mg PO DAILY [facility] Last Admin: 08/24/17 09:00 Dose: 50 mg Sevelamer Carbonate (Renvela) 800 mg PO TIDCC [facility] Last Admin: 08/24/17 20:21 Dose: 800 mg Valproate Sodium (Depakene Oral Soln) 250 mg PO QID [facility] Last Admin: 08/24/17 22:05 Dose: 250 mg Vitamin B Complex/Vit C/Folic Acid (Nephro-Courtney) 1 tab PO 0800 [facility] Last Admin: 08/24/17 08:56 Dose: 1 tab - Labs Labs: 08/23/17 15:14 08/23/17 15:14 PT 12.9 SECONDS (9.7-12.2) H 08/23/17 15:14 INR 1.1 08/23/17 15:14 APTT 51 SECONDS (21-34) H D 08/23/17 15:14
[2017-08-25] MEDS: Albuterol-Ipratrop 3 mg / 0.5 (3 ml) UD INH SCH ×4 (01:30→19:46)
[2017-08-25] MEDS: (Novolin R) Insulin Human Regular 100 units/ml vial SC SCH ×4 (08:30→22:02)
[2017-08-25] MEDS: Multivitamin Vitamin B Complex (Nephro-Vite) Tab PO SCH (09:00)
--- NOTE | 2017-08-25 10:18 | CP.PCM.PN ---
Subjective - Date & Time of Evaluation Date of Evaluation: 08/25/17 Time of Evaluation: 10:15 - Subjective Subjective: still has chest pain weeke sob Objective - Vital Signs/Intake and Output Vital Signs (last 24 hours): Temp Pulse Resp BP Pulse Ox 97.9 F 56 L 20 122/74 97 08/25/17 09:46 08/25/17 09:46 08/25/17 09:46 08/25/17 05:38 08/25/17 09:46 Intake and Output: 08/25/17 08/25/17 06:59 18:59 Intake Total 480 Balance 480 - Medications Medications: Current Medications Albuterol/Ipratropium (Duoneb 3 Mg/0.5 Mg (3 Ml) Ud) 3 ml INH RQ6 [facility] Last Admin: 08/25/17 08:57 Dose: Not Given Amiodarone HCl (Cordarone) 200 mg PO DAILY [facility] Last Admin: 08/24/17 10:44 Dose: 200 mg Amlodipine Besylate (Norvasc) 10 mg PO DAILY [facility] Last Admin: 08/24/17 09:01 Dose: 10 mg Aspirin (Aspirin Chewable) 81 mg PO DAILY [facility] Last Admin: 08/24/17 09:00 Dose: 81 mg Calcium Carbonate (Oscal) 500 mg PO BID [facility] Last Admin: 08/24/17 22:14 Dose: 500 mg Carvedilol (Coreg) 25 mg PO BID [facility] Last Admin: 08/24/17 20:21 Dose: 25 mg Clopidogrel Bisulfate (Plavix) 75 mg PO DAILY [facility] Last Admin: 08/24/17 10:44 Dose: 75 mg Epoetin Tom (Procrit) 4,000 unit IV TTS [facility] Last Admin: 08/24/17 16:02 Dose: 4,000 unit Hydromorphone HCl (Dilaudid) 1 mg IVP Q4H PRN PRN Reason: Pain, moderate (4-7) Last Admin: 08/25/17 05:40 Dose: 1 mg Insulin Glargine (Lantus) 18 unit SC HS [facility] Last Admin: 08/24/17 22:07 Dose: 18 units Insulin Human Regular (Novolin R) 0 unit SC ACHS [facility] PRN Reason: Protocol Last Admin: 08/24/17 22:06 Dose: Not Given Isosorbide Mononitrate (Imdur) 60 mg PO DAILY [facility] Last Admin: 08/24/17 09:00 Dose: 60 mg Levetiracetam (Keppra) 500 mg PO BID [facility] Last Admin: 08/24/17 20:21 Dose: 500 mg Montelukast Sodium (Singulair) 10 mg PO DAILY [facility] Last Admin: 08/24/17 09:00 Dose: 10 mg Pantoprazole Sodium (Protonix Ec Tab) 40 mg PO DAILY [facility] Last Admin: 08/24/17 09:00 Dose: 40 mg Rosuvastatin Calcium (Crestor) 10 mg PO HS [facility] Last Admin: 08/24/17 22:06 Dose: 10 mg Sertraline HCl (Zoloft) 50 mg PO DAILY [facility] Last Admin: 08/24/17 09:00 Dose: 50 mg Sevelamer Carbonate (Renvela) 800 mg PO TIDCC [facility] Last Admin: 08/24/17 20:21 Dose: 800 mg Valproate Sodium (Depakene Oral Soln) 250 mg PO QID [facility] Last Admin: 08/24/17 22:05 Dose: 250 mg Vitamin B Complex/Vit C/Folic Acid (Nephro-Courtney) 1 tab PO 0800 [facility] Last Admin: 08/24/17 08:56 Dose: 1 tab - Labs Labs: 08/23/17 15:14 08/23/17 15:14 PT 12.9 SECONDS (9.7-12.2) H 08/23/17 15:14 INR 1.1 08/23/17 15:14 APTT 51 SECONDS (21-34) H D 08/23/17 15:14 - Constitutional Appears: Non-toxic - Head Exam Head Exam: NORMAL INSPECTION - Eye Exam Eye Exam: Conjunctival injection - ENT Exam ENT Exam: Mucous Membranes Moist - Neck Exam Neck Exam: Full ROM - Respiratory Exam Respiratory Exam: Decreased Breath Sounds, Rales - Cardiovascular Exam Cardiovascular Exam: REGULAR RHYTHM - GI/Abdominal Exam GI & Abdominal Exam: Normal Bowel Sounds - Back Exam Back Exam: CVA tenderness (L) - Neurological Exam Neurological Exam: Alert, Oriented x3 - Psychiatric Exam Psychiatric exam: Depressed - Skin Skin Exam: Pallor Assessment and Plan - Assessment and Plan (Free Text) Assessment: severe cad recurent chest pain htn ESRF CHF BACK PAIN S/P AMPUTATION BLIND DMID Plan: CONT CURENT TRATMENT INCREASE IMDURE
[2017-08-25] MEDS: Pantoprazole 40 mg EC Tab PO SCH (10:28)
[2017-08-25] MEDS: Valproic Acid 250 mg/5 ml UD Cup PO SCH ×4 (10:43→22:35)
[2017-08-25] MEDS: (Lantus) Insulin Glargine, Recombinant SC SCH (22:35)
[2017-08-26] MEDS: Albuterol-Ipratrop 3 mg / 0.5 (3 ml) UD INH SCH ×3 (02:09→13:22)
[2017-08-26] MEDS: (Novolin R) Insulin Human Regular 100 units/ml vial SC SCH ×3 (07:36→17:54)
--- NOTE | 2017-08-26 08:25 | CP.PCM.PN ---
Subjective - Date & Time of Evaluation Date of Evaluation: 08/26/17 Time of Evaluation: 08:22 - Subjective Subjective: Events reviewed Objective - Vital Signs/Intake and Output Vital Signs (last 24 hours): Temp Pulse Resp BP Pulse Ox 97.8 F 68 20 115/68 100 08/26/17 07:40 08/26/17 07:40 08/26/17 07:40 08/26/17 03:20 08/26/17 07:40 - Medications Medications: Current Medications Albuterol/Ipratropium (Duoneb 3 Mg/0.5 Mg (3 Ml) Ud) 3 ml INH RQ6 [facility] Last Admin: 08/26/17 07:53 Dose: Not Given Amiodarone HCl (Cordarone) 200 mg PO DAILY [facility] Last Admin: 08/25/17 10:28 Dose: 200 mg Amlodipine Besylate (Norvasc) 10 mg PO DAILY [facility] Last Admin: 08/25/17 10:28 Dose: 10 mg Aspirin (Aspirin Chewable) 81 mg PO DAILY [facility] Last Admin: 08/25/17 10:28 Dose: 81 mg Calcium Carbonate (Oscal) 500 mg PO BID [facility] Last Admin: 08/25/17 17:35 Dose: 500 mg Carvedilol (Coreg) 25 mg PO BID [facility] Last Admin: 08/25/17 17:35 Dose: 25 mg Clopidogrel Bisulfate (Plavix) 75 mg PO DAILY [facility] Last Admin: 08/25/17 10:28 Dose: 75 mg Epoetin Tom (Procrit) 4,000 unit IV TTS [facility] Last Admin: 08/24/17 16:02 Dose: 4,000 unit Hydromorphone HCl (Dilaudid) 1 mg IVP Q4H PRN PRN Reason: Pain, moderate (4-7) Last Admin: 08/26/17 07:59 Dose: 1 mg Insulin Glargine (Lantus) 18 unit SC HS [facility] Last Admin: 08/25/17 22:35 Dose: 18 units Insulin Human Regular (Novolin R) 0 unit SC ACHS [facility] PRN Reason: Protocol Last Admin: 08/26/17 07:36 Dose: Not Given Isosorbide Mononitrate (Imdur Er) 90 mg PO DAILY [facility] Last Admin: 08/25/17 11:18 Dose: 90 mg Levetiracetam (Keppra) 500 mg PO BID [facility] Last Admin: 08/25/17 17:35 Dose: 500 mg Montelukast Sodium (Singulair) 10 mg PO DAILY [facility] Last Admin: 08/25/17 10:28 Dose: 10 mg Pantoprazole Sodium (Protonix Ec Tab) 40 mg PO DAILY [facility] Last Admin: 08/25/17 10:28 Dose: 40 mg Rosuvastatin Calcium (Crestor) 10 mg PO HS [facility] Last Admin: 08/25/17 22:35 Dose: 10 mg Sertraline HCl (Zoloft) 50 mg PO DAILY [facility] Last Admin: 08/25/17 10:28 Dose: 50 mg Sevelamer Carbonate (Renvela) 800 mg PO TIDCC [facility] Last Admin: 08/25/17 17:34 Dose: 800 mg Valproate Sodium (Depakene Oral Soln) 250 mg PO QID [facility] Last Admin: 08/25/17 22:35 Dose: 250 mg Vitamin B Complex/Vit C/Folic Acid (Nephro-Courntey) 1 tab PO 0800 [facility] Last Admin: 08/25/17 09:00 Dose: 1 tab - Labs Labs: 08/23/17 15:14 08/23/17 15:14 PT 12.9 SECONDS (9.7-12.2) H 08/23/17 15:14 INR 1.1 08/23/17 15:14 APTT 51 SECONDS (21-34) H D 08/23/17 15:14 - Constitutional Appears: No Acute Distress, Chronically Ill - Respiratory Exam Respiratory Exam: Clear to Ausculation Bilateral, NORMAL BREATHING PATTERN - Cardiovascular Exam Cardiovascular Exam: REGULAR RHYTHM, RRR, +S1, +S2, +S4, Murmur (TERRELL II/ ). absent: JVD - GI/Abdominal Exam GI & Abdominal Exam: Normal Bowel Sounds. absent: Organomegaly Assessment and Plan - Assessment and Plan (Free Text) Assessment: 37 year old transgender woman chest pain controlled with Dilaudid chronic angina , non revascularizable CAD with atretic MOLINA graft, All SVG vein grafts were shown to be closed. Consider adding ranexa 500 daily for chest pain. No plan for cardiac catheterization . HTN Coreg 25 BID, Norvasc 10, Imdur 90, CAD continue dual anti platelet therapy but he has issues with GI bleeding in the past, so if he does not tolerate d/c plavix. Paroxysmal atrial fibrillation - Continue amiodarone for arrhythmia suppression ; Too high risk of GI bleed prevents NOAC for CVA prophylaxsis DM - insulin, brilltle diabetic, labile PVD s/p amputations ESRD continue HD, when euvolemic he is cleared for D/C from a cardiac standpoint.
[2017-08-26] MEDS: Multivitamin Vitamin B Complex (Nephro-Vite) Tab PO SCH (08:35)
[2017-08-26] MEDS: Pantoprazole 40 mg EC Tab PO SCH (09:42)
--- NOTE | 2017-08-26 10:20 | CP.PCM.PN ---
Subjective - Date & Time of Evaluation Date of Evaluation: 08/20/17 Time of Evaluation: 10:17 - Subjective Subjective: feels beter no pain less sob Objective - Vital Signs/Intake and Output Vital Signs (last 24 hours): Temp Pulse Resp BP Pulse Ox 98.2 F 71 20 120/74 95 08/26/17 08:39 08/26/17 08:39 08/26/17 08:39 08/26/17 09:46 08/26/17 08:39 - Medications Medications: Current Medications Albuterol/Ipratropium (Duoneb 3 Mg/0.5 Mg (3 Ml) Ud) 3 ml INH RQ6 [facility] Last Admin: 08/26/17 07:53 Dose: Not Given Amiodarone HCl (Cordarone) 200 mg PO DAILY [facility] Last Admin: 08/26/17 09:42 Dose: 200 mg Amlodipine Besylate (Norvasc) 10 mg PO DAILY [facility] Last Admin: 08/26/17 09:42 Dose: 10 mg Aspirin (Aspirin Chewable) 81 mg PO DAILY [facility] Last Admin: 08/26/17 09:42 Dose: 81 mg Calcium Carbonate (Oscal) 500 mg PO BID [facility] Last Admin: 08/26/17 09:42 Dose: 500 mg Carvedilol (Coreg) 25 mg PO BID [facility] Last Admin: 08/26/17 09:46 Dose: 25 mg Clopidogrel Bisulfate (Plavix) 75 mg PO DAILY [facility] Last Admin: 08/26/17 09:42 Dose: 75 mg Epoetin Tom (Procrit) 4,000 unit IV TTS [facility] Last Admin: 08/24/17 16:02 Dose: 4,000 unit Hydromorphone HCl (Dilaudid) 1 mg IVP Q4H PRN PRN Reason: Pain, moderate (4-7) Last Admin: 08/26/17 07:59 Dose: 1 mg Insulin Glargine (Lantus) 18 unit SC HS [facility] Last Admin: 08/25/17 22:35 Dose: 18 units Insulin Human Regular (Novolin R) 0 unit SC ACHS [facility] PRN Reason: Protocol Last Admin: 08/26/17 07:36 Dose: Not Given Isosorbide Mononitrate (Imdur Er) 90 mg PO DAILY [facility] Last Admin: 08/26/17 09:42 Dose: 90 mg Levetiracetam (Keppra) 500 mg PO BID [facility] Last Admin: 08/26/17 09:42 Dose: 500 mg Montelukast Sodium (Singulair) 10 mg PO DAILY [facility] Last Admin: 08/26/17 09:42 Dose: 10 mg Pantoprazole Sodium (Protonix Ec Tab) 40 mg PO DAILY [facility] Last Admin: 08/26/17 09:42 Dose: 40 mg Rosuvastatin Calcium (Crestor) 10 mg PO HS [facility] Last Admin: 08/25/17 22:35 Dose: 10 mg Sertraline HCl (Zoloft) 50 mg PO DAILY [facility] Last Admin: 08/26/17 09:42 Dose: 50 mg Sevelamer Carbonate (Renvela) 800 mg PO TIDCC [facility] Last Admin: 08/26/17 08:35 Dose: 800 mg Valproate Sodium (Depakene Oral Soln) 250 mg PO QID [facility] Last Admin: 08/25/17 22:35 Dose: 250 mg Vitamin B Complex/Vit C/Folic Acid (Nephro-Courtney) 1 tab PO 0800 [facility] Last Admin: 08/26/17 08:35 Dose: 1 tab - Labs Labs: 08/23/17 15:14 08/23/17 15:14 PT 12.9 SECONDS (9.7-12.2) H 08/23/17 15:14 INR 1.1 08/23/17 15:14 APTT 51 SECONDS (21-34) H D 08/23/17 15:14 - Constitutional Appears: Non-toxic - Head Exam Head Exam: ATRAUMATIC - Eye Exam Eye Exam: Conjunctival injection - ENT Exam ENT Exam: Mucous Membranes Dry - Neck Exam Neck Exam: Full ROM - Respiratory Exam Respiratory Exam: Decreased Breath Sounds - Cardiovascular Exam Cardiovascular Exam: REGULAR RHYTHM - GI/Abdominal Exam GI & Abdominal Exam: Normal Bowel Sounds - Rectal Exam Rectal Exam: NORMAL INSPECTION - Back Exam Back Exam: NORMAL INSPECTION - Psychiatric Exam Psychiatric exam: Normal Affect - Skin Skin Exam: Pallor Assessment and Plan - Assessment and Plan (Free Text) Assessment: chest pain improved cad dmcontroled htn esrf Plan: discharge home
[2017-08-26] MEDS: Valproic Acid 250 mg/5 ml UD Cup PO SCH ×3 (11:00→17:15)
[2017-08-26 16:49] VITALS: BP 96/57; RESP 18; TEMP 97.8; O2SAT 100
[2017-08-26 18:04] VITALS: PULSE 67
--- NOTE | 2017-08-27 12:17 | CARD ---
APPROVED REPORT EKG Measurement Heart [id number] IN 160P32 [id number] <Conclusion> Normal sinus rhythm Left ventricular hypertrophy with repolarization abnormality Abnormal ECG
--- NOTE | 2017-08-28 11:45 | CARD ---
APPROVED REPORT EKG Measurement Heart [id number] [id number] <Conclusion> Normal sinus rhythm ST elevation, consider inferior injury or acute infarct ACUTE OK / STEMI Consider right ventricular involvement in acute inferior infarct Abnormal ECG
== END 2017-08-26 18:40 | disposition home or self-care (01) | DRG 132 ==
LOC: C.ER 12:33 → C.9E 16:40 → C.6T 17:36 → OBSVTOIN 08-24 17:52
PROVIDERS: ADMIT Internal Medicine; ATTEND Internal Medicine
PROC: 5A1D70Z Performance of Urinary Filtration, Intermittent, Less than 6 Hours Per Day (ICD-10-PCS; principal; 2017-08-24)
DX: I25.119 Atherosclerotic heart disease of native coronary artery with unspecified angina pectoris (principal); E11.22 Type 2 diabetes mellitus with diabetic chronic kidney disease; I13.2 Hypertensive heart and chronic kidney disease with heart failure and with stage 5 chronic kidney disease, or end stage renal disease; E11.51 Type 2 diabetes mellitus with diabetic peripheral angiopathy without gangrene; N18.6 End stage renal disease; E87.5 Hyperkalemia; I50.9 Heart failure, unspecified; J44.9 Chronic obstructive pulmonary disease, unspecified; I48.0 Paroxysmal atrial fibrillation; Z95.1 Presence of aortocoronary bypass graft; E03.9 Hypothyroidism, unspecified; E78.00 Pure hypercholesterolemia, unspecified; F02.80 Dementia in other diseases classified elsewhere, unspecified severity, without behavioral disturbance, psychotic disturbance, mood disturbance, and anxiety; F64.9 Gender identity disorder, unspecified; G30.9 Alzheimer's disease, unspecified; H54.8 Legal blindness, as defined in USA; Z86.73 Personal history of transient ischemic attack (TIA), and cerebral infarction without residual deficits; Z87.11 Personal history of peptic ulcer disease; Z89.511 Acquired absence of right leg below knee; Z89.512 Acquired absence of left leg below knee; Z99.2 Dependence on renal dialysis

== ENCOUNTER 2017-08-31 15:57 | Inpatient (IN) | payer OTHER ==
[2017-08-31 15:57] VITALS: PULSE 66; BMI 18.8
[2017-08-31] MEDS ORDERED: Aspirin 325 mg EC Tablets PO STA (16:26)
--- NOTE | 2017-08-31 16:33 | C.PDOC ---
History Of Present Illness Patient is a 37 y/o male, with a PMHx of ESRD, DM, HTN, CHF, obstructive CAD, and on dialysis, who presents to the ED with a complaint of CP since this morning. Patient admits to taking Nitro at home with no relief. Reports to have gone to the dialysis center subsequently, who referred him to the ED. Patient had a recent admission for CP and was discharged 4 days ago. Denies SOB, nausea/ vomiting, fever, abdominal pain, or receiving dialysis today. Time Seen by Provider: 08/31/17 16:11 Chief Complaint (Nursing): Chest Pain History Per: Patient History/Exam Limitations: no limitations Onset/Duration Of Symptoms: Hrs (this morning) Current Symptoms Are (Timing): Still Present Nitro Therapy Administered: Per Own Supply, No Relief Recent travel outside of the [place]: No Past Medical History Reviewed: Historical Data, Nursing Documentation, Vital Signs Vital Signs: Last Vital Signs Temp 97.6 F 08/31/17 16:09 Pulse 66 08/31/17 16:09 Resp 16 08/31/17 16:09 BP 206/66 H 08/31/17 16:25 Pulse Ox 99 08/31/17 17:18 - Medical History PMH: Alzheimer's Disease, Anemia, Anxiety, Arthritis, Asthma, Atrial Fibrillation, Bronchitis, CAD, Cardia Arrhythmia, CHF, COPD, CVA, Depression, Diabetes, Deep Vein Thrombosis, Gastritis, Gastrointestinal Ulcer, Gall Bladder Disease, HTN, Hypercholesterolemia, Hypothyroidism, Pneumonia, End Stage Renal Disease, Chronic Kidney Disease, Seizures Denies: Hyperthyroidism, Sexually Transmitted Disease Surgical History: CABG (12/2009), Cholecystectomy (2011), Coronary Stent - [facility] (08/24/17) ABDOMINAL WALL SINOGRAM (12/31/13) C.A.T. SCAN OF ABDOMEN (10/31/13) CENTRAL VENOUS CATHETER PLACEMENT WITH GUIDANCE (02/10/15) CHANGE OTHER DEVICE IN TRUNK SUBCU/FASCIA, CAREER TECHNICAL COUNSELOR APPROACH (06/01/17) DILATE R ANT TIB ART W DRUG-ELUT INTRALUM, PERC (08/12/15) DILATION OF LEFT FEMORAL ARTERY, PERCUTANEOUS APPROACH (07/04/16) DILATION OF RIGHT FEMORAL ARTERY, PERCUTANEOUS APPROACH (08/12/15) DILATION OF RIGHT POPLITEAL ARTERY, PERCUTANEOUS APPROACH (08/12/15) DX ULTRASOUND-HEART (01/05/13) ENTERAL INFUSION OF CONCENTRATED NUT. SUBSTANCES (06/28/13) EXCIS DEBRIDE OF WOUND, INFECT, OR BURN (08/03/14) EXCISION OF STOMACH, ENDO, DIAGN (03/03/17) EXTIRPATION OF MATTER FROM L FEM ART, PERC APPROACH (07/04/16) EXTIRPATION OF MATTER FROM R FEM ART, PERC APPROACH (08/12/15) EXTIRPATION OF MATTER FROM R POPL ART, PERC APPROACH (08/12/15) FLUOROSCOPY OF L LOW EXTREM ART USING L OSM CONTRAST (08/12/15) FLUOROSCOPY OF R LOW EXTREM ART USING L OSM CONTRAST (08/12/15) FLUOROSCOPY OF RIGHT JUGULAR VEINS, GUIDANCE (06/01/17) FREE SKIN GRAFT NEC (08/03/14) HEAD SOFT TISS X-RAY NEC (04/15/13) HEMODIALYSIS (04/28/15) INCIS W REM OF FORIEGN BODY OR DEV FROM SKIN & SUBCUT TISSUE (08/08/13) INSERT INFUSION DEV IN R INT JUGULAR VEIN, PERC (06/01/17) INSERTION OF INFUSION DEV INTO R SUBCLAV VEIN, PERC APPROACH (01/19/16) INSERTION OF INFUSION DEV INTO SUP VENA CAVA, PERC APPROACH (05/17/17) INSPECTION OF UPPER INTESTINAL TRACT, ENDO (03/03/17) INTRODUCE OF OTH THROMBOLYTIC INTO PERIPH ART, PERC APPROACH (08/12/15) LAPAROSCOPIC CHOLECYSTECTOMY (09/21/13) LOC EXC LES METATAR/TAR (06/01/14) PACKED CELL TRANSFUSION (06/01/14) PERCUTAN LIVER ASPIRAT (12/31/13) PERFORMANCE OF URINARY FILTRATION, MULTIPLE (05/17/17) PERFORMANCE OF URINARY FILTRATION, SINGLE (12/18/16) SKIN & SUBQ INCISION NEC (10/24/14) TETANUS TOXOID ADMINIST (06/13/14) TRANSFUSE NONAUT RED BLOOD CELLS IN PERIPH VEIN, PERC (04/09/17) ULTRASONOGRAPHY OF RIGHT AND LEFT HEART (04/09/17) ULTRASONOGRAPHY OF SUPERIOR VENA CAVA, GUIDANCE (02/20/17) VENOUS CATHETERIZATION FOR RENAL DIALYSIS (08/08/13) VENOUS CATHETERIZATION NEC (04/30/13) Family History: States: Unknown Family Hx - Social History Hx Tobacco Use: No Hx Alcohol Use: No Hx Substance Use: No - Immunization History Hx Tetanus Toxoid Vaccination: No Hx Influenza Vaccination: No Hx Pneumococcal Vaccination: Yes Review Of Systems Constitutional: Negative for: Fever Respiratory: Negative for: Shortness of Breath Gastrointestinal: Negative for: Nausea, Vomiting, Abdominal Pain Physical Exam - Physical Exam Appears: Non-toxic, No Acute Distress, Chronically Ill Skin: Normal Color, Warm, Dry Head: Atraumatic, Normacephalic Eye(s): bilateral: EOMI, Other (cloudy cornea) Nose: Normal Oral Mucosa: Moist Chest: Symmetrical, Other (right upper chest wall port, sutures intactjust above it) Cardiovascular: Rhythm Regular, Murmur Respiratory: Normal Breath Sounds, No Accessory Muscle Use Gastrointestinal/Abdominal: Soft, No Tenderness Extremity: Other (bilateral BKAs) Neurological/Psych: Oriented x3, Normal Speech ED Course And Treatment - Laboratory Results Result Diagrams: 08/31/17 17:21 08/31/17 17:21 O2 Sat by Pulse Oximetry: 99 (room air) Pulse Ox Interpretation: Normal - Other Rad Chest one X-Ray: Interpreted by Me, Viewed By Me Interpretation: PROCEDURE: CHEST RADIOGRAPH, 1 VIEW. HISTORY: SOB. COMPARISON: Comparison is made to 08/22/2017. FINDINGS: LUNGS: Heterogeneous left perihilar opacities are noted improved since the previous exam. Otherwise no significant interval change in the lungs. PLEURA: Left pleural effusion is again noted small in size. CARDIOVASCULAR: The cardiac silhouette is prominent in size. Status post prior sternotomy. Normal. OSSEOUS STRUCTURES: No significant abnormalities. VISUALIZED UPPER ABDOMEN: Normal. OTHER FINDINGS: Right-sided hemodialysis catheter seen in place. IMPRESSION: Residual left perihilar opacities and small left pleural effusion. Otherwise no interval change. Progress Note: EKG, CXR, and blood work ordered. Aspirin administered. Case discussed with Dr Li, agreed upon plan and admisison. Disposition - Disposition Disposition: HOSPITALIZED Disposition Time: 18:20 Condition: STABLE - Clinical Impression Clinical Impression: ESRD (end stage renal disease) on dialysis, CAD (coronary artery disease), Chest pain - Scribe Statement The provider has reviewed the documentation as recorded by the Scribe Flori Celeste All medical record entries made by the Scribe were at my direction and personally dictated by me. I have reviewed the chart and agree that the record accurately reflects my personal performance of the history, physical exam, medical decision making, and the department course for this patient. I have also personally directed, reviewed, and agree with the discharge instructions and disposition.
--- NOTE | 2017-08-31 17:09 | RAD ---
PROCEDURE: CHEST RADIOGRAPH, 1 VIEW HISTORY: SOB COMPARISON: Comparison is made to 08/22/2017 FINDINGS: LUNGS: Heterogeneous left perihilar opacities are noted improved since the previous exam. Otherwise no significant interval change in the lungs. PLEURA: Left pleural effusion is again noted small in size. CARDIOVASCULAR: The cardiac silhouette is prominent in size. Status post prior sternotomy. Normal. OSSEOUS STRUCTURES: No significant abnormalities. VISUALIZED UPPER ABDOMEN: Normal. OTHER FINDINGS: Right-sided hemodialysis catheter seen in place. IMPRESSION: Residual left perihilar opacities and small left pleural effusion. Otherwise no interval change.
[2017-08-31 17:30] LABS: BASO # 0.1 K/uL (0.0-0.2); EOS # 0.4 K/uL (0.0-0.7); EOS % 4.7 % (0.0-4.0); HEMOGLOBIN 10.8 g/dL (12.0-18.0); LYMPH # 2.4 K/uL (1.0-4.3); LYMPH % 25.4 % (20.0-40.0); MEAN CELL VOLUME 90.5 fL (80.0-94.0); MEAN CORPUSCULAR HEMOGLOBIN 29.3 pg (27.0-31.0); MEAN CORPUSCULAR HGB CONC 32.4 g/dL (33.0-37.0); MEAN PLATELET VOLUME 8.9 fL (7.2-11.7); MONO # 0.5 K/uL (0.0-0.8); MONO % 5.4 % (0.0-10.0); NEUT % 63.5 % (50.0-75.0); RBC 3.7 Mil/uL (4.40-5.90); RED CELL DISTRIBUTION WIDTH 21.4 % (11.5-14.5); WHITE BLOOD COUNT 9.4 K/uL (4.8-10.8)
[2017-08-31 17:43] LABS: INR 1.1; PROTHROMBIN TIME 11.8 SECONDS (9.7-12.2)
[2017-08-31 17:47] LABS: ALB/GLOB RATIO 0.9 (1.0-2.1); ALT/SGPT 20 U/L (21-72); AST/SGOT 19 U/L (17-59); BLOOD UREA NITROGEN 66 mg/dL (9-20); CALCIUM 8.4 mg/dl (8.6-10.4); GFR AFRICAN-AMERICAN 12; GFR NON-AFRICAN AMERICAN 10; LIPASE 114 U/L (23-300)
[2017-08-31 17:54] LABS: CK-MB 1.23 ng/mL (0.0-3.38)
[2017-08-31 18:17] LABS: B-TYPE NATRIURETIC PEPTIDE 68000 pg/mL (0-450)
[2017-08-31] MEDS ORDERED: HYDROmorphone 1 mg/ml ISec IVP PRN (20:44)
[2017-08-31] MEDS: (Novolin R) Insulin Human Regular 100 units/ml vial SC SCH (23:26)
[2017-08-31] MEDS: Insulin Detemir 100 units/ml Vial (Levemir) SC SCH (23:27)
[2017-09-01] MEDS: (Novolin R) Insulin Human Regular 100 units/ml vial SC SCH ×4 (08:25→21:37)
[2017-09-01] MEDS ORDERED: Ranolazine 500 mg Extended Release Tablets PO SCH (10:00)
--- NOTE | 2017-09-01 10:41 | CP.PCM.HP ---
History of Present Illness - History of Present Illness History of Present Illness: pt came in for chest pain retrsternal sob and pain radiating to left side neck Present on Admission - Present on Admission Any Indicators Present on Admission: Yes History of Uncontrolled Diabetes: Yes Review of Systems - Review of Systems Systems not reviewed;Unavailable: Acuity of Condition, Respiratory Distress - Constitutional Constitutional: Fatigue - EENT Eyes: Blind Spots, Other Visual Disturbances Nose/Mouth/Throat: Neck Pain - Cardiovascular Cardiovascular: Chest Pain, Chest Pain at Rest, Dyspnea, Irregular Heart Rhythm - Respiratory Respiratory: Dyspnea - Gastrointestinal Gastrointestinal: As Per HPI - Genitourinary Genitourinary: As Per HPI - Reproductive: Male Reproductive:Male: As Per HPI - Musculoskeletal Musculoskeletal: Back Pain - Integumentary Integumentary: As Per HPI - Neurological Neurological: Numbness - Psychiatric Psychiatric: Depression - Endocrine Endocrine: Cold Intolorance - Hematologic/Lymphatic Hematologic: As Per HPI Past Patient History - Infectious Disease Hx of Infectious Diseases: None - Tetanus Immunizations Tetanus Immunization: >10 years Ago - Past Medical History & Family History Past Medical History?: Yes - Past Social History Smoking Status: Never Smoked - CARDIAC Hx Atrial Fibrillation: Yes Hx Cardia Arrhythmia: Yes Hx Congestive Heart Failure: Yes Hx Hypercholesterolemia: Yes Hx Hypertension: Yes - PULMONARY Hx Asthma: Yes Hx Bronchitis: Yes Hx Chronic Obstructive Pulmonary Disease (COPD): Yes Hx Pneumonia: Yes - NEUROLOGICAL Hx Alzheimer's Disease: Yes Hx Seizures: Yes - HEENT Hx HEENT Problems: Yes Hx Blind: Yes (legally blind) Hx Cataracts: Yes - RENAL Hx Chronic Kidney Disease: Yes - ENDOCRINE/METABOLIC Hx Hyperthyroidism: No Hx Hypothyroidism: Yes - HEMATOLOGICAL/ONCOLOGICAL Hx Anemia: Yes - INTEGUMENTARY Hx Dermatological Problems: No - MUSCULOSKELETAL/RHEUMATOLOGICAL Hx Arthritis: Yes Hx Falls: No - GASTROINTESTINAL Hx Gall Bladder Disease: Yes Hx Gastritis: Yes - GENITOURINARY/GYNECOLOGICAL Hx Sexually Transmitted Disorders: No - PSYCHIATRIC Hx Anxiety: Yes Hx Depression: Yes Hx Substance Use: No - SURGICAL HISTORY Hx Cholecystectomy: Yes (2011) 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/2009) Hx Coronary Stent: Yes - ANESTHESIA Hx Anesthesia: Yes Hx Anesthesia Reactions: No Hx Malignant Hyperthermia: No Meds Allergies/Adverse Reactions: Allergies Allergy/AdvReac Type Severity Reaction Status Date / Time acetaminophen [From Percocet] Allergy RASH Verified 08/31/17 16:15 atenolol Allergy RASH Verified 08/31/17 16:15 digoxin Allergy RASH Verified 08/31/17 16:15 milk Allergy ITCHING Verified 08/31/17 16:15 morphine Allergy RASH Verified 08/31/17 16:15 oxycodone HCl [From Percocet] Allergy RASH Verified 08/31/17 16:15 Physical Exam - Constitutional Appears: In Acute Distress - Head Exam Head Exam: ATRAUMATIC - Eye Exam Eye Exam: Conjunctival injection Additional comments: legaly blind - ENT Exam ENT Exam: Normal Exam - Neck Exam Neck exam: Positive for: Full Rom, Tenderness Additional comments: ; side - Respiratory Exam Respiratory Exam: Decreased Breath Sounds, Rales - Cardiovascular Exam Cardiovascular Exam: REGULAR RHYTHM, +S1, +S2, +S4 - GI/Abdominal Exam GI & Abdominal Exam: Normal Bowel Sounds - Rectal Exam Rectal Exam: NORMAL INSPECTION - Extremities Exam Additional comments: bilateral amputation - Back Exam Back exam: NORMAL INSPECTION - Psychiatric Exam Psychiatric exam: Normal Affect - Skin Skin Exam: Pallor Results - Vital Signs Recent Vital Signs: Last Vital Signs Temp 97.7 F 09/01/17 09:00 Pulse 72 09/01/17 09:00 Resp 20 09/01/17 09:00 BP 178/96 H 09/01/17 09:53 Pulse Ox 98 09/01/17 09:00 - Labs Result Diagrams: 08/31/17 17:21 08/31/17 17:21 Labs: Laboratory Results - last 24 hr 08/31/17 08/31/17 08/31/17 17:21 17:21 17:21 WBC 9.4 RBC 3.70 L Hgb 10.8 L Hct 33.5 L MCV 90.5 D MCH 29.3 MCHC 32.4 L RDW 21.4 H Plt Count 140 MPV 8.9 Neut % (Auto) 63.5 Lymph % (Auto) 25.4 Woodruff % (Auto) 5.4 Eos % (Auto) 4.7 H Baso % (Auto) 1.0 Neut # 6.0 Lymph # 2.4 Woodruff # 0.5 Eos # 0.4 Baso # 0.1 PT 11.8 INR 1.1 APTT 35 H Sodium 139 Potassium 5.9 H Chloride 97 L Carbon Dioxide 28 Anion Gap 20 BUN 66 H Creatinine 6.4 H Est GFR ( Amer) 12 Est GFR (Non-Af Amer) 10 POC Glucose (mg/dL) Random Glucose 166 H Calcium 8.4 L Total Bilirubin 0.4 AST 19 ALT 20 L D Alkaline Phosphatase 205 H D Total Creatine Kinase < 20 L CK-MB (Mass) 1.23 Troponin I 0.0290 NT-Pro-B Natriuret Pep 07416 H Total Protein 8.2 Albumin 4.0 Globulin 4.2 H Albumin/Globulin Ratio 0.9 L Lipase 114 08/31/17 09/01/17 23:24 08:51 WBC RBC Hgb Hct MCV MCH MCHC RDW Plt Count MPV Neut % (Auto) Lymph % (Auto) Woodruff % (Auto) Eos % (Auto) Baso % (Auto) Neut # Lymph # Woodruff # Eos # Baso # PT INR APTT Sodium Potassium Chloride Carbon Dioxide Anion Gap BUN Creatinine Est GFR ( Amer) Est GFR (Non-Af Amer) POC Glucose (mg/dL) 153 H 117 H Random Glucose Calcium Total Bilirubin AST ALT Alkaline Phosphatase Total Creatine Kinase CK-MB (Mass) Troponin I NT-Pro-B Natriuret Pep Total Protein Albumin Globulin Albumin/Globulin Ratio Lipase Assessment & Plan - Assessment and Plan (Free Text) Assessment: ac recurent chest pain severe cad htn severe uncontroled dm esrf chf hyperkaleamia Plan: admit moniter increase medication and as per order - Date & Time Date: 09/01/17 Time: 10:47
[2017-09-01] MEDS: Valproic Acid 250 mg/5 ml UD Cup PO SCH ×4 (12:15→22:13)
--- NOTE | 2017-09-01 14:53 | CP.PCM.CON ---
History of Present Illness - History of Present Illness History of Present Illness: RENAL CONSULT Consult for ESRD NEPHROLOGY CONSULTATION IMP: ESRD TTS Chest Pain Diabetic chronic Kidney Disease (E11.22) Hypertensive Chronic Kidney Disease (I12.0) Anemia (D64.9), Hyperphosphatemia (E83.39), Secondary Hyperparathyroidism (E21.1 ), HTN (I12.0) CAD s/p CABG, diastolic CHF, pA flutter/fib, intra-cardiac thrombus, Heparin induced thrombocytopenia, hx of seizure, blindness Hyperkalemia Plan: Plan for HD today per usual scheduleand next tentatively on saturday Continue with Nephrovite 1 tab/day. Hgb ok today holding HANNAH Will restart renavela 1600 mg tid BP still high, bp meds were just given this am will reevaluate Continue with calcitriol f/u chest pain work up Chief Complaint; Chest pain HPI: Pt is a 37 y/o transgender M with hx of ESRD on hemodialysis (TTS) via permacath, chronic anemia, hyperphosphatemia, secondary hyperparathyroidism, DM , CAD that presented for recurrent CP. Currrently CP free. He states that he had the CP yesterday. It occurred while at rest before dialysis was started and was sent here. He denies any current sob. Denies any current radiation of symptoms. ROS: A Full detailed ROS is negative except as in my HPI Physical Examination: General Appearance: Comfortable, in no acute respiratory distress, co-operative . Vitals reviewed and noted as below Head; Atraumatic, normocephalic ENT: no ulcers no thrush. Tongue is midline. Oropharynx: no rash or ulcers. EYES: Pt is blind both eyes Neck; supple no lymphadenopathy, no thyromegaly or bruit Lungs: Normal respiratory rate/effort. Breath sounds bilateral equal clear Heart: Normal rate. s1s2 normal. No rub or gallop. Extremities: no edema. No varicose veins. has b/l BKA Neurological: Patient is alert, awake and oriented to person, place and time. No focal deficit. Strength bilateral appropriate and equal Skin: Warm and dry. Normal turgor. No rash. Palpitation: Normal elasticity for age Abdomen: Abdomen is soft. Bowel sounds +. There is no abdominal tenderness, no guarding/rigidity or organomegaly Psych: normal insight and normal affect/mood MSK: no joint tenderness or swelling. Digits and nails normal, no deformity : kidney or bladder not palpable Access: permacath Labs/imaging reviewed. Past medical history, past surgical history, family history, social history, allergy reviewed and noted as below Family Hx: no hx of CKD. Non contributory Past Patient History - Infectious Disease Hx of Infectious Diseases: None - Tetanus Immunizations Tetanus Immunization: >10 years Ago - Past Medical History & Family History Past Medical History?: Yes - Past Social History Smoking Status: Never Smoked - CARDIAC Hx Atrial Fibrillation: Yes Hx Cardia Arrhythmia: Yes Hx Congestive Heart Failure: Yes Hx Hypercholesterolemia: Yes Hx Hypertension: Yes - PULMONARY Hx Asthma: Yes Hx Bronchitis: Yes Hx Chronic Obstructive Pulmonary Disease (COPD): Yes Hx Pneumonia: Yes - NEUROLOGICAL Hx Alzheimer's Disease: Yes Hx Seizures: Yes - HEENT Hx HEENT Problems: Yes Hx Blind: Yes (legally blind) Hx Cataracts: Yes - RENAL Hx Chronic Kidney Disease: Yes - ENDOCRINE/METABOLIC Hx Hyperthyroidism: No Hx Hypothyroidism: Yes - HEMATOLOGICAL/ONCOLOGICAL Hx Anemia: Yes - INTEGUMENTARY Hx Dermatological Problems: No - MUSCULOSKELETAL/RHEUMATOLOGICAL Hx Arthritis: Yes Hx Falls: No - GASTROINTESTINAL Hx Gall Bladder Disease: Yes Hx Gastritis: Yes - GENITOURINARY/GYNECOLOGICAL Hx Sexually Transmitted Disorders: No - PSYCHIATRIC Hx Anxiety: Yes Hx Depression: Yes Hx Substance Use: No - SURGICAL HISTORY Hx Cholecystectomy: Yes (2011) 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/2009) Hx Coronary Stent: Yes - ANESTHESIA Hx Anesthesia: Yes Hx Anesthesia Reactions: No Hx Malignant Hyperthermia: No Meds Allergies/Adverse Reactions: Allergies Allergy/AdvReac Type Severity Reaction Status Date / Time acetaminophen [From Percocet] Allergy RASH Verified 08/31/17 16:15 atenolol Allergy RASH Verified 08/31/17 16:15 digoxin Allergy RASH Verified 08/31/17 16:15 milk Allergy ITCHING Verified 08/31/17 16:15 morphine Allergy RASH Verified 08/31/17 16:15 oxycodone HCl [From Percocet] Allergy RASH Verified 08/31/17 16:15 - Medications Medications: Current Medications Albuterol/Ipratropium (Duoneb 3 Mg/0.5 Mg (3 Ml) Ud) 3 ml INH RQ6 [facility] Amlodipine Besylate (Norvasc) 10 mg PO DAILY [facility] Last Admin: 09/01/17 09:54 Dose: 10 mg Carvedilol (Coreg) 25 mg PO BID [facility] Last Admin: 09/01/17 09:53 Dose: 25 mg Clonidine HCl (Catapres) 0.3 mg PO Q8H [facility] Last Admin: 09/01/17 08:38 Dose: 0.3 mg Hydralazine HCl (Apresoline) 100 mg PO BID [facility] Last Admin: 09/01/17 09:53 Dose: 100 mg Hydromorphone HCl (Dilaudid) 1 mg IVP Q4H PRN PRN Reason: Pain, moderate (4-7) Last Admin: 09/01/17 10:55 Dose: 1 mg Insulin Detemir (Levemir) 10 unit SC HS [facility] Last Admin: 08/31/17 23:27 Dose: Not Given Insulin Human Regular (Novolin R) 0 unit SC ACHS [facility] PRN Reason: Protocol Last Admin: 09/01/17 12:21 Dose: 1 unit Isosorbide Mononitrate (Imdur Er) 90 mg PO DAILY [facility] Last Admin: 09/01/17 09:53 Dose: 90 mg Ranolazine (Ranexa) 500 mg PO BID [facility] Sertraline HCl (Zoloft) 100 mg PO DAILY [facility] Last Admin: 09/01/17 09:52 Dose: 100 mg Valproate Sodium (Depakene Oral Soln) 250 mg PO QID [facility] Last Admin: 09/01/17 14:22 Dose: 250 mg Results - Vital Signs Recent Vital Signs: Last Vital Signs Temp 97.7 F 09/01/17 09:00 Pulse 72 09/01/17 09:00 Resp 20 09/01/17 09:00 BP 178/96 H 09/01/17 09:53 Pulse Ox 98 09/01/17 09:00 - Labs Result Diagrams: 08/31/17 17:21 08/31/17 17:21 Labs: Laboratory Results - last 24 hr 08/31/17 08/31/17 08/31/17 17:21 17:21 17:21 WBC 9.4 RBC 3.70 L Hgb 10.8 L Hct 33.5 L MCV 90.5 D MCH 29.3 MCHC 32.4 L RDW 21.4 H Plt Count 140 MPV 8.9 Neut % (Auto) 63.5 Lymph % (Auto) 25.4 Bea[place]gard % (Auto) 5.4 Eos % (Auto) 4.7 H Baso % (Auto) 1.0 Neut # 6.0 Lymph # 2.4 Bea[place]gard # 0.5 Eos # 0.4 Baso # 0.1 PT 11.8 INR 1.1 APTT 35 H Sodium 139 Potassium 5.9 H Chloride 97 L Carbon Dioxide 28 Anion Gap 20 BUN 66 H Creatinine 6.4 H Est GFR ( Amer) 12 Est GFR (Non-Af Amer) 10 POC Glucose (mg/dL) Random Glucose 166 H Calcium 8.4 L Total Bilirubin 0.4 AST 19 ALT 20 L D Alkaline Phosphatase 205 H D Total Creatine Kinase < 20 L CK-MB (Mass) 1.23 Troponin I 0.0290 NT-Pro-B Natriuret Pep 65304 H Total Protein 8.2 Albumin 4.0 Globulin 4.2 H Albumin/Globulin Ratio 0.9 L Lipase 114 08/31/17 09/01/17 09/01/17 23:24 08:51 12:18 WBC RBC Hgb Hct MCV MCH MCHC RDW Plt Count MPV Neut % (Auto) Lymph % (Auto) Beauregard % (Auto) Eos % (Auto) Baso % (Auto) Neut # Lymph # Beauregard # Eos # Baso # PT INR APTT Sodium Potassium Chloride Carbon Dioxide Anion Gap BUN Creatinine Est GFR ( Amer) Est GFR (Non-Af Amer) POC Glucose (mg/dL) 153 H 117 H 196 H Random Glucose Calcium Total Bilirubin AST ALT Alkaline Phosphatase Total Creatine Kinase CK-MB (Mass) Troponin I NT-Pro-B Natriuret Pep Total Protein Albumin Globulin Albumin/Globulin Ratio Lipase
[2017-09-01] MEDS: Ranolazine 500 mg Extended Release Tablets PO SCH (18:38)
[2017-09-01] MEDS: Albuterol-Ipratrop 3 mg / 0.5 (3 ml) UD INH SCH (20:58)
[2017-09-01] MEDS: Insulin Detemir 100 units/ml Vial (Levemir) SC SCH (21:37)
[2017-09-02] MEDS: Albuterol-Ipratrop 3 mg / 0.5 (3 ml) UD INH SCH ×4 (01:54→20:18)
[2017-09-02] MEDS: (Novolin R) Insulin Human Regular 100 units/ml vial SC SCH ×4 (07:54→22:10)
[2017-09-02 08:57] LABS: CK-MB 1.09 ng/mL (0.0-3.38); TROPONIN I 0.024 ng/mL (0.00-0.120)
[2017-09-02] MEDS: Valproic Acid 250 mg/5 ml UD Cup PO SCH ×4 (10:35→22:46)
[2017-09-02] MEDS: Ranolazine 500 mg Extended Release Tablets PO SCH ×2 (10:36→18:21)
--- NOTE | 2017-09-02 11:19 | CP.PCM.PN ---
Subjective - Date & Time of Evaluation Date of Evaluation: 09/02/17 Time of Evaluation: 11:16 - Subjective Subjective: sor throat coughing alot sob chest pain Objective - Vital Signs/Intake and Output Vital Signs (last 24 hours): Temp Pulse Resp BP Pulse Ox 97.9 F 57 L 20 144/63 99 09/02/17 07:56 09/02/17 07:56 09/02/17 07:56 09/02/17 10:37 09/02/17 07:56 Intake and Output: 09/02/17 09/02/17 06:59 18:59 Intake Total 100 Balance 100 - Medications Medications: Current Medications Albuterol/Ipratropium (Duoneb 3 Mg/0.5 Mg (3 Ml) Ud) 3 ml INH RQ6 [facility] Last Admin: 09/02/17 07:13 Dose: Not Given Amlodipine Besylate (Norvasc) 10 mg PO DAILY [facility] Last Admin: 09/02/17 10:37 Dose: 10 mg Calcitriol (Rocaltrol) 0.25 mcg PO TTS [facility] Carvedilol (Coreg) 25 mg PO BID [facility] Last Admin: 09/02/17 10:37 Dose: 25 mg Clonidine HCl (Catapres) 0.3 mg PO Q8H [facility] Last Admin: 09/02/17 10:00 Dose: Not Given Hydralazine HCl (Apresoline) 100 mg PO BID [facility] Last Admin: 09/02/17 10:36 Dose: 100 mg Hydromorphone HCl (Dilaudid) 1 mg IVP Q4H PRN PRN Reason: Pain, moderate (4-7) Last Admin: 09/02/17 10:37 Dose: 1 mg Insulin Detemir (Levemir) 10 unit SC HS [facility] Last Admin: 09/01/17 21:37 Dose: Not Given Insulin Human Regular (Novolin R) 0 unit SC ACHS [facility] PRN Reason: Protocol Last Admin: 09/02/17 07:54 Dose: Not Given Isosorbide Mononitrate (Imdur Er) 90 mg PO DAILY [facility] Last Admin: 09/02/17 10:36 Dose: 90 mg Ranolazine (Ranexa) 500 mg PO BID [facility] Last Admin: 09/02/17 10:36 Dose: 500 mg Sertraline HCl (Zoloft) 100 mg PO DAILY [facility] Last Admin: 09/02/17 10:35 Dose: 100 mg Sevelamer Carbonate (Renvela) 1,600 mg PO TIDCC [facility] Last Admin: 09/02/17 08:35 Dose: 1,600 mg Valproate Sodium (Depakene Oral Soln) 250 mg PO QID [facility] Last Admin: 09/02/17 10:35 Dose: 250 mg - Labs Labs: 08/31/17 17:21 08/31/17 17:21 PT 11.8 SECONDS (9.7-12.2) 08/31/17 17:21 INR 1.1 08/31/17 17:21 APTT 35 SECONDS (21-34) H 08/31/17 17:21 - Constitutional Appears: Non-toxic, In Acute Distress - Head Exam Head Exam: ATRAUMATIC - Eye Exam Additional comments: legaly blind - ENT Exam ENT Exam: Mucous Membranes Moist - Neck Exam Neck Exam: Normal Inspection - Respiratory Exam Respiratory Exam: Decreased Breath Sounds, Rales, Rhonchi - Cardiovascular Exam Cardiovascular Exam: REGULAR RHYTHM - GI/Abdominal Exam GI & Abdominal Exam: Normal Bowel Sounds - Rectal Exam Rectal Exam: NORMAL INSPECTION - Back Exam Back Exam: CVA tenderness (L) - Neurological Exam Neurological Exam: Oriented x3 - Psychiatric Exam Psychiatric exam: Depressed - Skin Skin Exam: Normal Color, Pallor Assessment and Plan - Assessment and Plan (Free Text) Assessment: chest pain cad chf acute pharyngitis ac bronhitis Plan: as per orders
[2017-09-02] MEDS: cefTRIAXone 2 GM in Sodium Chloride 0.9% 100 ML IVPB SCH (13:56)
--- NOTE | 2017-09-02 14:30 | CP.PCM.CON ---
History of Present Illness - History of Present Illness History of Present Illness: Patient presents with CP described as sharp, aching and localized to central chest > states had episode at home and took SL NTG with no relief, was constant in Am and took NTG without relief. Reported same to HD nurse and advised to come to ER. 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 moderate pulmonary stenosis Chronic diastolic dysfunction grade 3 Chronic pain Hx of non-compliance with meds and on occasion HD Review of Systems - Review of Systems All systems: reviewed and no additional remarkable complaints except Past Patient History - Infectious Disease Hx of Infectious Diseases: None - Tetanus Immunizations Tetanus Immunization: >10 years Ago - Past Medical History & Family History Past Medical History?: Yes - Past Social History Smoking Status: Never Smoked - CARDIAC Hx Atrial Fibrillation: Yes Hx Cardia Arrhythmia: Yes Hx Congestive Heart Failure: Yes Hx Hypercholesterolemia: Yes Hx Hypertension: Yes - PULMONARY Hx Asthma: Yes Hx Bronchitis: Yes Hx Chronic Obstructive Pulmonary Disease (COPD): Yes Hx Pneumonia: Yes - NEUROLOGICAL Hx Alzheimer's Disease: Yes Hx Seizures: Yes - HEENT Hx HEENT Problems: Yes Hx Blind: Yes (legally blind) Hx Cataracts: Yes - RENAL Hx Chronic Kidney Disease: Yes - ENDOCRINE/METABOLIC Hx Hyperthyroidism: No Hx Hypothyroidism: Yes - HEMATOLOGICAL/ONCOLOGICAL Hx Anemia: Yes - INTEGUMENTARY Hx Dermatological Problems: No - MUSCULOSKELETAL/RHEUMATOLOGICAL Hx Arthritis: Yes Hx Falls: No - GASTROINTESTINAL Hx Gall Bladder Disease: Yes Hx Gastritis: Yes - GENITOURINARY/GYNECOLOGICAL Hx Sexually Transmitted Disorders: No - PSYCHIATRIC Hx Anxiety: Yes Hx Depression: Yes Hx Substance Use: No - SURGICAL HISTORY Hx Cholecystectomy: Yes (2011) 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/2009) Hx Coronary Stent: Yes - ANESTHESIA Hx Anesthesia: Yes Hx Anesthesia Reactions: No Hx Malignant Hyperthermia: No Meds Allergies/Adverse Reactions: Allergies Allergy/AdvReac Type Severity Reaction Status Date / Time acetaminophen [From Percocet] Allergy RASH Verified 08/31/17 16:15 atenolol Allergy RASH Verified 08/31/17 16:15 digoxin Allergy RASH Verified 08/31/17 16:15 milk Allergy ITCHING Verified 08/31/17 16:15 morphine Allergy RASH Verified 08/31/17 16:15 oxycodone HCl [From Percocet] Allergy RASH Verified 08/31/17 16:15 - Medications Medications: Current Medications Albuterol/Ipratropium (Duoneb 3 Mg/0.5 Mg (3 Ml) Ud) 3 ml INH RQ6 [facility] Last Admin: 09/02/17 13:03 Dose: Not Given Amlodipine Besylate (Norvasc) 10 mg PO DAILY [facility] Last Admin: 09/02/17 10:37 Dose: 10 mg Calcitriol (Rocaltrol) 0.25 mcg PO TTS [facility] Carvedilol (Coreg) 25 mg PO BID [facility] Last Admin: 09/02/17 10:37 Dose: 25 mg Clonidine HCl (Catapres) 0.3 mg PO Q8H [facility] Last Admin: 09/02/17 10:00 Dose: Not Given Hydralazine HCl (Apresoline) 100 mg PO BID [facility] Last Admin: 09/02/17 10:36 Dose: 100 mg Hydromorphone HCl (Dilaudid) 1 mg IVP Q4H PRN PRN Reason: Pain, moderate (4-7) Last Admin: 09/02/17 10:37 Dose: 1 mg Ceftriaxone Sodium 2 gm/ (Sodium Chloride) 100 mls @ 100 mls/hr IVPB Q24H [facility] Last Admin: 09/02/17 13:56 Dose: 100 mls/hr Insulin Detemir (Levemir) 10 unit SC HS [facility] Last Admin: 09/01/17 21:37 Dose: Not Given Insulin Human Regular (Novolin R) 0 unit SC ACHS [facility] PRN Reason: Protocol Last Admin: 09/02/17 12:27 Dose: Not Given Isosorbide Mononitrate (Imdur Er) 90 mg PO DAILY [facility] Last Admin: 09/02/17 10:36 Dose: 90 mg Ranolazine (Ranexa) 500 mg PO BID [facility] Last Admin: 09/02/17 10:36 Dose: 500 mg Sertraline HCl (Zoloft) 100 mg PO DAILY [facility] Last Admin: 09/02/17 10:35 Dose: 100 mg Sevelamer Carbonate (Renvela) 1,600 mg PO TIDCC [facility] Last Admin: 09/02/17 12:55 Dose: 1,600 mg Valproate Sodium (Depakene Oral Soln) 250 mg PO QID [facility] Last Admin: 09/02/17 10:35 Dose: 250 mg Physical Exam - Constitutional Appears: No Acute Distress, Chronically Ill - Head Exam Head Exam: ATRAUMATIC, NORMAL INSPECTION, NORMOCEPHALIC - Eye Exam Eye Exam: EOMI, Normal appearance, PERRL - ENT Exam ENT Exam: Mucous Membranes Moist, Normal Oropharynx - Respiratory Exam Respiratory Exam: Clear to Auscultation Bilateral, NORMAL BREATHING PATTERN. absent: Rhonchi, Wheezes - Cardiovascular Exam Cardiovascular Exam: REGULAR RHYTHM, +S1, +S2, Systolic Murmur - GI/Abdominal Exam GI & Abdominal Exam: Normal Bowel Sounds, Soft. absent: Tenderness - Extremities Exam Extremities exam: Negative for: normal inspection (B/L BKA) - Neurological Exam Neurological exam: Alert, Oriented x3 - Psychiatric Exam Psychiatric exam: Normal Affect, Normal Mood - Skin Skin Exam: Normal Color, Warm Results - Vital Signs Recent Vital Signs: Last Vital Signs Temp 97.9 F 09/02/17 07:56 Pulse 57 L 09/02/17 07:56 Resp 20 09/02/17 07:56 BP 144/63 09/02/17 10:37 Pulse Ox 99 09/02/17 07:56 - Labs Result Diagrams: 08/31/17 17:21 08/31/17 17:21 Labs: Laboratory Results - last 24 hr 09/01/17 09/01/17 09/02/17 17:00 21:35 06:30 POC Glucose (mg/dL) 140 H 133 H 118 H Total Creatine Kinase CK-MB (Mass) Troponin I NT-Pro-B Natriuret Pep 09/02/17 09/02/17 08:18 11:43 POC Glucose (mg/dL) 134 H Total Creatine Kinase 21 L CK-MB (Mass) 1.09 Troponin I 0.0240 NT-Pro-B Natriuret Pep 17451 H - EKG Data EKG Interpreted by: Myself EKG shows normal: Sinus rhythm (LVH with strain, no change from prior EKGs) Assessment & Plan - Assessment and Plan (Free Text) Assessment: 37 y/o with transgender phenotype > DM brittle poorly controlled and hx of non-compliance > HTN is chronic and stable; with hx of non-compliance and sporadic lability > ESRD on HD with hx of non-compliance and missed sessions > PVD s/p bilateral BKA due to recurrent infections and progressive gangrene and non-healing ulcers > Legally blind Coronary artery disease s/p CABG and subsequent PCI all grafts are closed > He remains with preserved LV function and advanced diastolic dysfunction despite diffuse small vessel CAD (too small for PCI) > He is not having any angina or advanced CHF > Troponin was negative for ACS and EKG without any new ischemic changes > Medical therapy remains his most important and sole treatment option at this stage. > Continue ASA as tolerated, imdur, coreg, high intensity statin; ranexa and titrate these meds as tolerated to achieve optimal BP and HR control. (<120/80 and HR <65). * He unfortunately is not a candidate for any surgical or percutaneous therapy. * He has had hx of atrial catheter related thrombus in past ---> he was challenged with AC on many occasions but due to GI bleed deemed unsafe * he has known documented hx of parx AFLUTTER/AFIB He should be on amiodarone 200 daily to mAINTAIN SINUS RHYTHM --> as he has had Aflutter recurrences in past Conservative rx and d/c home when stable. WILL SIGN OFF CALL IF QUESTIONS
[2017-09-02] MEDS: Insulin Detemir 100 units/ml Vial (Levemir) SC SCH (22:09)
[2017-09-03] MEDS: Albuterol-Ipratrop 3 mg / 0.5 (3 ml) UD INH SCH ×4 (02:05→20:45)
[2017-09-03] MEDS: (Novolin R) Insulin Human Regular 100 units/ml vial SC SCH ×4 (07:15→21:16)
[2017-09-03 08:03] VITALS: RESP 20
[2017-09-03] MEDS: Ranolazine 500 mg Extended Release Tablets PO SCH ×2 (10:00→17:10)
[2017-09-03] MEDS: Valproic Acid 250 mg/5 ml UD Cup PO SCH ×4 (10:00→21:58)
--- NOTE | 2017-09-03 10:10 | CP.PCM.PN ---
Subjective - Date & Time of Evaluation Date of Evaluation: 09/03/17 Time of Evaluation: 10:08 - Subjective Subjective: stillc/o of chest pain butless and sor throat Objective - Vital Signs/Intake and Output Vital Signs (last 24 hours): Temp Pulse Resp BP Pulse Ox 97.7 F 58 L 20 153/68 H 100 09/03/17 08:02 09/03/17 08:02 09/03/17 08:02 09/03/17 08:02 09/03/17 08:02 - Medications Medications: Current Medications Albuterol/Ipratropium (Duoneb 3 Mg/0.5 Mg (3 Ml) Ud) 3 ml INH RQ6 [facility] Last Admin: 09/03/17 07:14 Dose: Not Given Amiodarone HCl (Cordarone) 200 mg PO DAILY [facility] Last Admin: 09/02/17 15:25 Dose: 200 mg Amlodipine Besylate (Norvasc) 10 mg PO DAILY [facility] Calcitriol (Rocaltrol) 0.25 mcg PO TTS [facility] Carvedilol (Coreg) 25 mg PO BID [facility] Clonidine HCl (Catapres) 0.3 mg PO Q8H [facility] Last Admin: 09/03/17 01:35 Dose: Not Given Heparin Sodium (Porcine) (Heparin) 5,000 units SC Q12 [facility] Hydralazine HCl (Apresoline) 100 mg PO BID [facility] Hydromorphone HCl (Dilaudid) 1 mg IVP Q4H PRN PRN Reason: Pain, moderate (4-7) Last Admin: 09/03/17 08:07 Dose: 1 mg Ceftriaxone Sodium 2 gm/ (Sodium Chloride) 100 mls @ 100 mls/hr IVPB Q24H [facility] Last Admin: 09/02/17 13:56 Dose: 100 mls/hr Insulin Detemir (Levemir) 10 unit SC HS [facility] Last Admin: 09/02/17 22:09 Dose: Not Given Insulin Human Regular (Novolin R) 0 unit SC ACHS [facility] PRN Reason: Protocol Last Admin: 09/03/17 07:15 Dose: Not Given Isosorbide Mononitrate (Imdur Er) 90 mg PO DAILY [facility] Last Admin: 09/02/17 10:36 Dose: 90 mg Ranolazine (Ranexa) 500 mg PO BID [facility] Last Admin: 09/02/17 18:21 Dose: 500 mg Sertraline HCl (Zoloft) 100 mg PO DAILY [facility] Last Admin: 09/02/17 10:35 Dose: 100 mg Sevelamer Carbonate (Renvela) 1,600 mg PO TIDCC [facility] Last Admin: 09/03/17 08:30 Dose: 1,600 mg Valproate Sodium (Depakene Oral Soln) 250 mg PO QID [facility] Last Admin: 09/02/17 22:46 Dose: 250 mg Vitamin B Complex/Vit C/Folic Acid (Nephro-Courtney) 1 tab PO 0800 [facility] - Labs Labs: 08/31/17 17:21 08/31/17 17:21 PT 11.8 SECONDS (9.7-12.2) 08/31/17 17:21 INR 1.1 08/31/17 17:21 APTT 35 SECONDS (21-34) H 08/31/17 17:21 - Constitutional Appears: Non-toxic - Head Exam Head Exam: ATRAUMATIC - Eye Exam Eye Exam: Conjunctival injection - ENT Exam ENT Exam: Mucous Membranes Dry - Neck Exam Neck Exam: Full ROM - Respiratory Exam Respiratory Exam: Decreased Breath Sounds - Cardiovascular Exam Cardiovascular Exam: Tachycardia - GI/Abdominal Exam GI & Abdominal Exam: Soft - Rectal Exam Rectal Exam: NORMAL INSPECTION - Back Exam Back Exam: CVA tenderness (L) - Psychiatric Exam Psychiatric exam: Normal Mood - Skin Skin Exam: Pallor Assessment and Plan - Assessment and Plan (Free Text) Assessment: pain cad chf esrf aac pharyngitis dm htn Plan: repeat lab today after dialysis cont as per orders
--- NOTE | 2017-09-03 12:50 | CARD ---
APPROVED REPORT EKG Measurement Heart [id number] [place] 170P40 [id number] <Conclusion> Normal sinus rhythm Nonspecific ST and T wave abnormality Abnormal ECG
--- NOTE | 2017-09-03 13:22 | CARD ---
APPROVED REPORT EKG Measurement Heart [id number] [place] 170P45 [id number] <Conclusion> Sinus bradycardia Voltage criteria for left ventricular hypertrophy ST & T wave abnormality, consider lateral ischemia Abnormal ECG
--- NOTE | 2017-09-03 13:47 | CARD ---
APPROVED REPORT EKG Measurement Heart [id number] [place] 162P45 [id number] <Conclusion> Sinus bradycardia Left ventricular hypertrophy with repolarization abnormality Abnormal ECG
[2017-09-03 16:29] LABS: CALCIUM 7.7 mg/dl (8.6-10.4)
--- NOTE | 2017-09-03 16:36 | CP.PCM.PN ---
Subjective - Date & Time of Evaluation Date of Evaluation: 09/03/17 Time of Evaluation: 16:34 - Subjective Subjective: Follow up Nephrology Consultation: Assessment: stable chronic chest pain Diabetic chronic Kidney Disease (E11.22) Hypertensive Chronic Kidney Disease (I12.0) End stage renal disease (N18.6) dependence on hemodialysis (Z99.2) (TTS) via AVF Anemia (D64.9), Hyperphosphatemia (E83.39), Secondary Hyperparathyroidism (E21.1 ), HTN (I12.0) CAD s/p CABG, diastolic CHF, pA flutter/fib, intra-cardiac thrombus, Heparin induced thrombocytopenia, hx of seizure, blindness Plan: routine dialysis today as per TTS schedule. Continue with Nephrovite 1 tab/day. last Hb 10.8 hence defer HANNAH for now Continue with phos binders home dose Continue with calcitriol BP control with meds as ordered. Patient not on RAAS skyler, BP labile. K can be high at times Glycemic control, Dialysis consistent diet Further work up/management as per primary team Dose meds/antibiotics (if needed) for ESRD status. Avoid fleets enema/magnesium based laxatives. avoid heparin during HD due to hx of HIT. Thanks for allowing me to participate in care of your patient. Will follow patient with you. Please call if any Qs. Dr Eric Temple Office: [phone] HPI: Pt is a 36 y/o transgender M with hx of ESRD on hemodialysis (TTS) via permacath, chronic anemia, hyperphosphatemia, secondary hyperparathyroidism, Diabetes Mellitus, hypertension, CAD s/p CABG, diastolic CHF, pA flutter/fib, intra-cardiac thrombus, Heparin indueced thrombocytopenia presented with complaints of chronic chest pain and SOB c/o intermittent chronic chest pain denies palpitation, no c/o shortness of breath. Physical Examination: General Appearance: Comfortable, in no acute respiratory distress, co-operative . Vitals reviewed and noted as below Head; Atraumatic, normocephalic ENT: no ulcers no thrush. Tongue is midline. Oropharynx: no rash or ulcers. EYES: Pt is blind both eyes Neck; supple no lymphadenopathy, no thyromegaly or bruit Lungs: Normal respiratory rate/effort. Breath sounds bilateral equal clear Heart: normal rate. s1s2 normal. No rub or gallop. Extremities: no edema. No varicose veins. has b/l BKA Neurological: Patient is alert, awake and oriented to person, place and time. No focal deficit. Strength bilateral appropriate and equal Skin: Warm and dry. Normal turgor. No rash. Palpitation: Normal elasticity for age Abdomen: Abdomen is soft. Bowel sounds +. There is no abdominal tenderness, no guarding/rigidity or organomegaly Psych: limited insight and normal affect/mood MSK: no joint tenderness or swelling. Digits and nails normal, no deformity : kidney or bladder not palpable Access: permacath Labs/imaging reviewed. Past medical history, past surgical history, family history, social history, allergy reviewed and noted as below Family Hx: no hx of CKD. Non contributory Objective - Vital Signs/Intake and Output Vital Signs (last 24 hours): Temp Pulse Resp BP Pulse Ox 98.1 F 67 20 135/63 100 09/03/17 15:53 09/03/17 15:53 09/03/17 15:53 09/03/17 15:05 09/03/17 15:53 - Medications Medications: Current Medications Albuterol/Ipratropium (Duoneb 3 Mg/0.5 Mg (3 Ml) Ud) 3 ml INH RQ6 [facility] Last Admin: 09/03/17 13:19 Dose: Not Given Amiodarone HCl (Cordarone) 200 mg PO DAILY [facility] Last Admin: 09/03/17 10:00 Dose: Not Given Amlodipine Besylate (Norvasc) 10 mg PO DAILY [facility] Last Admin: 09/03/17 10:00 Dose: Not Given Calcitriol (Rocaltrol) 0.25 mcg PO TTS [facility] Last Admin: 09/03/17 10:27 Dose: Not Given Carvedilol (Coreg) 25 mg PO BID [facility] Last Admin: 09/03/17 10:00 Dose: Not Given Clonidine HCl (Catapres) 0.3 mg PO Q8H [facility] Last Admin: 09/03/17 09:00 Dose: Not Given Heparin Sodium (Porcine) (Heparin) 5,000 units SC Q12 [facility] Last Admin: 09/03/17 10:00 Dose: Not Given Hydralazine HCl (Apresoline) 100 mg PO BID [facility] Last Admin: 09/03/17 10:00 Dose: Not Given Hydromorphone HCl (Dilaudid) 1 mg IVP Q4H PRN PRN Reason: Pain, moderate (4-7) Last Admin: 09/03/17 12:16 Dose: 1 mg Ceftriaxone Sodium 2 gm/ (Sodium Chloride) 100 mls @ 100 mls/hr IVPB Q24H [facility] Last Admin: 09/02/17 13:56 Dose: 100 mls/hr Insulin Detemir (Levemir) 10 unit SC HS [facility] Last Admin: 09/02/17 22:09 Dose: Not Given Insulin Human Regular (Novolin R) 0 unit SC ACHS [facility] PRN Reason: Protocol Last Admin: 09/03/17 11:30 Dose: Not Given Isosorbide Mononitrate (Imdur Er) 90 mg PO DAILY [facility] Last Admin: 09/03/17 10:00 Dose: Not Given Ranolazine (Ranexa) 500 mg PO BID [facility] Last Admin: 09/03/17 10:00 Dose: Not Given Sertraline HCl (Zoloft) 100 mg PO DAILY [facility] Last Admin: 09/03/17 10:00 Dose: Not Given Sevelamer Carbonate (Renvela) 1,600 mg PO TIDCC [facility] Last Admin: 09/03/17 12:27 Dose: Not Given Valproate Sodium (Depakene Oral Soln) 250 mg PO QID [facility] Last Admin: 09/03/17 14:21 Dose: Not Given Vitamin B Complex/Vit C/Folic Acid (Nephro-Courtney) 1 tab PO 0800 [facility] - Labs Labs: 08/31/17 17:21 09/03/17 15:51 PT 11.8 SECONDS (9.7-12.2) 08/31/17 17:21 INR 1.1 08/31/17 17:21 APTT 35 SECONDS (21-34) H 08/31/17 17:21
[2017-09-03] MEDS: cefTRIAXone 2 GM in Sodium Chloride 0.9% 100 ML IVPB SCH (17:10)
[2017-09-03] MEDS: Insulin Detemir 100 units/ml Vial (Levemir) SC SCH (21:58)
[2017-09-04] MEDS: Albuterol-Ipratrop 3 mg / 0.5 (3 ml) UD INH SCH ×3 (01:49→13:07)
[2017-09-04] MEDS: (Novolin R) Insulin Human Regular 100 units/ml vial SC SCH ×3 (07:29→18:31)
[2017-09-04] MEDS ORDERED: Multivitamin Vitamin B Complex (Nephro-Vite) Tab PO SCH (08:00)
[2017-09-04 08:19] VITALS: TEMP 97.9
--- NOTE | 2017-09-04 10:48 | CP.PCM.PN ---
Subjective - Date & Time of Evaluation Date of Evaluation: 09/04/17 Time of Evaluation: 10:46 - Subjective Subjective: c/o of pain body on and off no chest pain bs contrled bp stable oimroved Objective - Vital Signs/Intake and Output Vital Signs (last 24 hours): Temp Pulse Resp BP Pulse Ox 97.9 F 54 L 20 132/68 99 09/04/17 08:18 09/04/17 08:18 09/04/17 08:18 09/04/17 08:18 09/04/17 08:18 Intake and Output: 09/04/17 09/04/17 06:59 18:59 Intake Total 100 Balance 100 - Medications Medications: Current Medications Albuterol/Ipratropium (Duoneb 3 Mg/0.5 Mg (3 Ml) Ud) 3 ml INH RQ6 [facility] Last Admin: 09/04/17 07:18 Dose: Not Given Amiodarone HCl (Cordarone) 200 mg PO DAILY [facility] Last Admin: 09/03/17 10:00 Dose: Not Given Amlodipine Besylate (Norvasc) 10 mg PO DAILY [facility] Last Admin: 09/03/17 10:00 Dose: Not Given Calcitriol (Rocaltrol) 0.25 mcg PO TTS [facility] Last Admin: 09/03/17 10:27 Dose: Not Given Carvedilol (Coreg) 25 mg PO BID [facility] Last Admin: 09/03/17 17:10 Dose: 25 mg Clonidine HCl (Catapres) 0.3 mg PO Q8H [facility] Last Admin: 09/04/17 01:56 Dose: Not Given Heparin Sodium (Porcine) (Heparin) 5,000 units SC Q12 [facility] Last Admin: 09/03/17 21:58 Dose: 5,000 units Hydralazine HCl (Apresoline) 100 mg PO BID [facility] Last Admin: 09/03/17 17:10 Dose: 100 mg Hydromorphone HCl (Dilaudid) 1 mg IVP Q4H PRN PRN Reason: Pain, moderate (4-7) Last Admin: 09/04/17 06:08 Dose: 1 mg Ceftriaxone Sodium 2 gm/ (Sodium Chloride) 100 mls @ 100 mls/hr IVPB Q24H [facility] Last Admin: 09/03/17 17:10 Dose: 100 mls/hr Insulin Detemir (Levemir) 10 unit SC HS [facility] Last Admin: 09/03/17 21:58 Dose: 10 unit Insulin Human Regular (Novolin R) 0 unit SC ACHS [facility] PRN Reason: Protocol Last Admin: 09/04/17 07:29 Dose: Not Given Isosorbide Mononitrate (Imdur Er) 90 mg PO DAILY [facility] Last Admin: 09/03/17 10:00 Dose: Not Given Ranolazine (Ranexa) 500 mg PO BID [facility] Last Admin: 09/03/17 17:10 Dose: 500 mg Sertraline HCl (Zoloft) 100 mg PO DAILY [facility] Last Admin: 09/03/17 10:00 Dose: Not Given Sevelamer Carbonate (Renvela) 1,600 mg PO TIDCC [facility] Last Admin: 09/03/17 17:09 Dose: 1,600 mg Valproate Sodium (Depakene Oral Soln) 250 mg PO QID [facility] Last Admin: 09/03/17 21:58 Dose: 250 mg Vitamin B Complex/Vit C/Folic Acid (Nephro-Courtney) 1 tab PO 0800 [facility] - Labs Labs: 08/31/17 17:21 09/03/17 15:51 PT 11.8 SECONDS (9.7-12.2) 08/31/17 17:21 INR 1.1 08/31/17 17:21 APTT 35 SECONDS (21-34) H 08/31/17 17:21 - Constitutional Appears: Non-toxic - Head Exam Head Exam: NORMAL INSPECTION - Eye Exam Eye Exam: Normal appearance Pupil Exam: NORMAL ACCOMODATION - ENT Exam ENT Exam: Mucous Membranes Moist - Neck Exam Neck Exam: Full ROM - Respiratory Exam Respiratory Exam: Decreased Breath Sounds, NORMAL BREATHING PATTERN - Cardiovascular Exam Cardiovascular Exam: REGULAR RHYTHM - GI/Abdominal Exam GI & Abdominal Exam: Normal Bowel Sounds - Rectal Exam Rectal Exam: NORMAL INSPECTION - Back Exam Back Exam: CVA tenderness (L) - Neurological Exam Neurological Exam: Oriented x3 - Psychiatric Exam Psychiatric exam: Depressed, Normal Affect - Skin Skin Exam: Pallor Assessment and Plan - Assessment and Plan (Free Text) Assessment: CAD ESRF DM HTN DEPRESION SEIZER ARRYTHMIA Plan: CONT [facility]
[2017-09-04] MEDS: Ranolazine 500 mg Extended Release Tablets PO SCH ×2 (10:54→18:33)
[2017-09-04] MEDS: Valproic Acid 250 mg/5 ml UD Cup PO SCH ×3 (10:55→18:33)
--- NOTE | 2017-09-04 11:44 | CP.PCM.PN ---
Subjective - Date & Time of Evaluation Date of Evaluation: 09/04/17 Time of Evaluation: 11:41 - Subjective Subjective: Patient sitting gotten eating his breakfast when he was seen this morning Awake and consciousness no nausea no vomiting Intermittent atypical chest pain Objective - Vital Signs/Intake and Output Vital Signs (last 24 hours): Temp Pulse Resp BP Pulse Ox 97.9 F 54 L 20 132/68 99 09/04/17 08:18 09/04/17 08:18 09/04/17 08:18 09/04/17 08:18 09/04/17 08:18 Intake and Output: 09/04/17 09/04/17 06:59 18:59 Intake Total 100 Balance 100 - Medications Medications: Current Medications Albuterol/Ipratropium (Duoneb 3 Mg/0.5 Mg (3 Ml) Ud) 3 ml INH RQ6 [facility] Last Admin: 09/04/17 07:18 Dose: Not Given Amiodarone HCl (Cordarone) 200 mg PO DAILY [facility] Last Admin: 09/04/17 10:53 Dose: 200 mg Amlodipine Besylate (Norvasc) 10 mg PO DAILY [facility] Last Admin: 09/04/17 10:54 Dose: 10 mg Calcitriol (Rocaltrol) 0.25 mcg PO TTS [facility] Last Admin: 09/03/17 10:27 Dose: Not Given Carvedilol (Coreg) 25 mg PO BID [facility] Last Admin: 09/04/17 11:00 Dose: Not Given Clonidine HCl (Catapres) 0.3 mg PO Q8H [facility] Last Admin: 09/04/17 09:00 Dose: Not Given Heparin Sodium (Porcine) (Heparin) 5,000 units SC Q12 [facility] Last Admin: 09/04/17 10:55 Dose: 5,000 units Hydralazine HCl (Apresoline) 100 mg PO BID [facility] Last Admin: 09/04/17 11:00 Dose: Not Given Hydromorphone HCl (Dilaudid) 1 mg IVP Q4H PRN PRN Reason: Pain, moderate (4-7) Last Admin: 09/04/17 10:56 Dose: 1 mg Ceftriaxone Sodium 2 gm/ (Sodium Chloride) 100 mls @ 100 mls/hr IVPB Q24H [facility] Last Admin: 09/03/17 17:10 Dose: 100 mls/hr Insulin Detemir (Levemir) 10 unit SC HS [facility] Last Admin: 09/03/17 21:58 Dose: 10 unit Insulin Human Regular (Novolin R) 0 unit SC ACHS [facility] PRN Reason: Protocol Last Admin: 09/04/17 07:29 Dose: Not Given Isosorbide Mononitrate (Imdur Er) 90 mg PO DAILY [facility] Last Admin: 09/04/17 10:55 Dose: 90 mg Ranolazine (Ranexa) 500 mg PO BID [facility] Last Admin: 09/04/17 10:54 Dose: 500 mg Sertraline HCl (Zoloft) 100 mg PO DAILY [facility] Last Admin: 09/04/17 10:54 Dose: 100 mg Sevelamer Carbonate (Renvela) 1,600 mg PO TIDCC [facility] Last Admin: 09/04/17 08:55 Dose: 1,600 mg Valproate Sodium (Depakene Oral Soln) 250 mg PO QID [facility] Last Admin: 09/04/17 10:55 Dose: 250 mg Vitamin B Complex/Vit C/Folic Acid (Nephro-Courtney) 1 tab PO 0800 [facility] Last Admin: 09/04/17 08:55 Dose: 1 tab - Labs Labs: 08/31/17 17:21 09/03/17 15:51 PT 11.8 SECONDS (9.7-12.2) 08/31/17 17:21 INR 1.1 08/31/17 17:21 APTT 35 SECONDS (21-34) H 08/31/17 17:21 - Constitutional Appears: No Acute Distress - ENT Exam ENT Exam: Mucous Membranes Moist - Respiratory Exam Respiratory Exam: NORMAL BREATHING PATTERN. absent: Chest Wall Tenderness, Wheezes - Cardiovascular Exam Cardiovascular Exam: absent: JVD, Rubs - GI/Abdominal Exam GI & Abdominal Exam: Soft, Normal Bowel Sounds - Extremities Exam Extremities Exam: absent: Calf Tenderness - Back Exam Back Exam: absent: CVA tenderness (L), CVA tenderness (R) - Neurological Exam Neurological Exam: Alert - Psychiatric Exam Psychiatric exam: Normal Affect - Skin Skin Exam: absent: Cyanosis Assessment and Plan (1) Chronic kidney disease requiring chronic dialysis Assessment & Plan: Impression and plan chronic chest pain Diabetic chronic Kidney Disease (E11.22) Hypertensive Chronic Kidney Disease (I12.0) End stage renal disease (N18.6) dependence on hemodialysis (Z99.2) (TTS) via AVF Anemia (D64.9), Hyperphosphatemia (E83.39), Secondary Hyperparathyroidism (E21.1 ), HTN (I12.0) CAD s/p CABG, diastolic CHF, pA flutter/fib, intra-cardiac thrombus, Heparin induced thrombocytopenia, hx of seizure, blindness Patient completed hemodialysis yesterday As per cardiology. The chest pain Status: Acute
[2017-09-04] MEDS: cefTRIAXone 2 GM in Sodium Chloride 0.9% 100 ML IVPB SCH (14:00)
[2017-09-04 16:11] VITALS: BP 118/71; PULSE 61; O2SAT 98
== END 2017-09-04 20:11 | disposition home or self-care (01) | DRG 543 ==
LOC: C.ER 15:57 → C.9E 17:59 → C.6T 23:03 → C.9E 23:35 → C.5S 09-01 07:33
PROVIDERS: ADMIT Internal Medicine; ATTEND Internal Medicine
PROC: 5A1D70Z Performance of Urinary Filtration, Intermittent, Less than 6 Hours Per Day (ICD-10-PCS; principal; 2017-09-01)
DX: R07.89 Other chest pain (principal); I50.32 Chronic diastolic (congestive) heart failure; I25.10 Atherosclerotic heart disease of native coronary artery without angina pectoris; I13.2 Hypertensive heart and chronic kidney disease with heart failure and with stage 5 chronic kidney disease, or end stage renal disease; E11.22 Type 2 diabetes mellitus with diabetic chronic kidney disease; E11.51 Type 2 diabetes mellitus with diabetic peripheral angiopathy without gangrene; N18.6 End stage renal disease; E11.65 Type 2 diabetes mellitus with hyperglycemia; E87.5 Hyperkalemia; J44.9 Chronic obstructive pulmonary disease, unspecified; E83.39 Other disorders of phosphorus metabolism; E03.9 Hypothyroidism, unspecified; D64.9 Anemia, unspecified; D75.82 Heparin induced thrombocytopenia (HIT); E78.00 Pure hypercholesterolemia, unspecified; F02.80 Dementia in other diseases classified elsewhere, unspecified severity, without behavioral disturbance, psychotic disturbance, mood disturbance, and anxiety; G30.9 Alzheimer's disease, unspecified; G89.29 Other chronic pain; H54.8 Legal blindness, as defined in USA; I51.3 Intracardiac thrombosis, not elsewhere classified; F64.9 Gender identity disorder, unspecified; I48.91 Unspecified atrial fibrillation; N25.81 Secondary hyperparathyroidism of renal origin; Z86.73 Personal history of transient ischemic attack (TIA), and cerebral infarction without residual deficits; Z87.01 Personal history of pneumonia (recurrent); Z87.11 Personal history of peptic ulcer disease; Z89.511 Acquired absence of right leg below knee; Z89.512 Acquired absence of left leg below knee; Z90.49 Acquired absence of other specified parts of digestive tract; Z91.14 Patient's other noncompliance with medication regimen; Z95.1 Presence of aortocoronary bypass graft; Z95.5 Presence of coronary angioplasty implant and graft; Z99.2 Dependence on renal dialysis; Z79.4 Long term (current) use of insulin; Z91.15 Patient's noncompliance with renal dialysis

== ENCOUNTER 2017-09-08 06:31 | Inpatient (IN) | payer OTHER ==
[2017-09-08 06:31] VITALS: PULSE 66; BMI 18.8
[2017-09-08 07:27] LABS: BASO # 0.1 K/uL (0.0-0.2); EOS # 0.3 K/uL (0.0-0.7); MEAN CORPUSCULAR HGB CONC 33.1 g/dL (33.0-37.0)
[2017-09-08 07:34] LABS: BASO % 0.9 % (0.0-2.0); EOS % 3.4 % (0.0-4.0); HEMOGLOBIN 12.9 g/dL (12.0-18.0); LYMPH # 2.3 K/uL (1.0-4.3); MEAN CELL VOLUME 90.8 fL (80.0-94.0); MEAN PLATELET VOLUME 8.9 fL (7.2-11.7); MONO # 0.6 K/uL (0.0-0.8); MONO % 7.3 % (0.0-10.0); NEUT # 4.6 K/uL (1.8-7.0); NEUT % 59.4 % (50.0-75.0); NRBC % 0.4 % (0.0-2.0); RBC 4.3 Mil/uL (4.40-5.90); RED CELL DISTRIBUTION WIDTH 20.5 % (11.5-14.5); WHITE BLOOD COUNT 7.8 K/uL (4.8-10.8)
--- NOTE | 2017-09-08 07:49 | C.PDOC ---
History Of Present Illness Patient is a 37 y/o male who presents to the ED with a complaint of CP associated with SOB since 5:30 this morning. Patient notes experiencing nausea and admits to taking aspirin and nitroglycerin [employer]. Patient has a hx of 3 stents , ESRD, and is on dialysis Saturday, , and Saturday. Last dialysis was yesterday. No other physical complaints at this time. Time Seen by Provider: 09/08/17 07:24 Chief Complaint (Nursing): Chest Pain History Per: Patient History/Exam Limitations: no limitations Onset/Duration Of Symptoms: Hrs (5:30am) Current Symptoms Are (Timing): Still Present Associated Symptoms: Nausea, Other (SOB) Nitro Therapy Administered: Per Own Supply Recent travel outside of the [place]: No Past Medical History Reviewed: Historical Data, Nursing Documentation, Vital Signs Vital Signs: Last Vital Signs Temp 98.3 F 09/08/17 07:15 Pulse 88 09/08/17 06:56 Resp 18 09/08/17 07:01 BP 237/105 H 09/08/17 06:42 Pulse Ox 97 09/08/17 11:18 - Medical History PMH: Alzheimer's Disease, Anemia, Anxiety, Arthritis, Asthma, Atrial Fibrillation, Bronchitis, CAD, Cardia Arrhythmia, CHF, COPD, CVA, Depression, Diabetes, Deep Vein Thrombosis, Gastritis, Gastrointestinal Ulcer, Gall Bladder Disease, HTN, Hypercholesterolemia, Hypothyroidism, Pneumonia, End Stage Renal Disease, Chronic Kidney Disease, Seizures Denies: Hyperthyroidism, Sexually Transmitted Disease Surgical History: CABG (12/2009), Cholecystectomy (2011), Coronary Stent - [facility] (08/31/17) ABDOMINAL WALL SINOGRAM (12/31/13) C.A.T. SCAN OF ABDOMEN (10/31/13) CENTRAL VENOUS CATHETER PLACEMENT WITH GUIDANCE (02/10/15) CHANGE OTHER DEVICE IN TRUNK SUBCU/FASCIA, DIRECTOR OF ONLINE MERCHANDISING APPROACH (06/01/17) DILATE R ANT TIB ART W DRUG-ELUT INTRALUM, PERC (08/12/15) DILATION OF LEFT FEMORAL ARTERY, PERCUTANEOUS APPROACH (07/04/16) DILATION OF RIGHT FEMORAL ARTERY, PERCUTANEOUS APPROACH (08/12/15) DILATION OF RIGHT POPLITEAL ARTERY, PERCUTANEOUS APPROACH (08/12/15) DX ULTRASOUND-HEART (01/05/13) ENTERAL INFUSION OF CONCENTRATED NUT. SUBSTANCES (06/28/13) EXCIS DEBRIDE OF WOUND, INFECT, OR BURN (08/03/14) EXCISION OF STOMACH, ENDO, DIAGN (03/03/17) EXTIRPATION OF MATTER FROM L FEM ART, PERC APPROACH (07/04/16) EXTIRPATION OF MATTER FROM R FEM ART, PERC APPROACH (08/12/15) EXTIRPATION OF MATTER FROM R POPL ART, PERC APPROACH (08/12/15) FLUOROSCOPY OF L LOW EXTREM ART USING L OSM CONTRAST (08/12/15) FLUOROSCOPY OF R LOW EXTREM ART USING L OSM CONTRAST (08/12/15) FLUOROSCOPY OF RIGHT JUGULAR VEINS, GUIDANCE (06/01/17) FREE SKIN GRAFT NEC (08/03/14) HEAD SOFT TISS X-RAY NEC (04/15/13) HEMODIALYSIS (04/28/15) INCIS W REM OF FORIEGN BODY OR DEV FROM SKIN & SUBCUT TISSUE (08/08/13) INSERT INFUSION DEV IN R INT JUGULAR VEIN, PERC (06/01/17) INSERTION OF INFUSION DEV INTO R SUBCLAV VEIN, PERC APPROACH (01/19/16) INSERTION OF INFUSION DEV INTO SUP VENA CAVA, PERC APPROACH (05/17/17) INSPECTION OF UPPER INTESTINAL TRACT, ENDO (03/03/17) INTRODUCE OF OTH THROMBOLYTIC INTO PERIPH ART, PERC APPROACH (08/12/15) LAPAROSCOPIC CHOLECYSTECTOMY (09/21/13) LOC EXC LES METATAR/TAR (06/01/14) PACKED CELL TRANSFUSION (06/01/14) PERCUTAN LIVER ASPIRAT (12/31/13) PERFORMANCE OF URINARY FILTRATION, MULTIPLE (05/17/17) PERFORMANCE OF URINARY FILTRATION, SINGLE (12/18/16) SKIN & SUBQ INCISION NEC (10/24/14) TETANUS TOXOID ADMINIST (06/13/14) TRANSFUSE NONAUT RED BLOOD CELLS IN PERIPH VEIN, PERC (04/09/17) ULTRASONOGRAPHY OF RIGHT AND LEFT HEART (04/09/17) ULTRASONOGRAPHY OF SUPERIOR VENA CAVA, GUIDANCE (02/20/17) VENOUS CATHETERIZATION FOR RENAL DIALYSIS (08/08/13) VENOUS CATHETERIZATION NEC (04/30/13) Family History: States: Unknown Family Hx - Social History Hx Tobacco Use: No Hx Alcohol Use: No Hx Substance Use: No - Immunization History Hx Tetanus Toxoid Vaccination: No Hx Influenza Vaccination: No Hx Pneumococcal Vaccination: Yes Review Of Systems Cardiovascular: Positive for: Chest Pain Respiratory: Positive for: Shortness of Breath Gastrointestinal: Positive for: Nausea Physical Exam - Physical Exam Appears: Well, Non-toxic, No Acute Distress Skin: Normal Color, Warm, Dry Head: Atraumatic, Normacephalic Oral Mucosa: Moist Chest: Symmetrical Cardiovascular: Rhythm Regular, Murmur (3/6 systolic ejection murmur) Respiratory: Normal Breath Sounds, No Rales, No Rhonchi, No Wheezing Extremity: Other (bilateral lower extremity BKAs) ED Course And Treatment - Laboratory Results Result Diagrams: 09/08/17 07:25 09/08/17 10:07 ECG: Interpreted By Me, Viewed By Me ECG Rhythm: Sinus Rhythm, Nonspecific Changes (nonspecific ST/T changes) Interpretation Of ECG: LVH; normal axis Rate From EC (bpm) O2 Sat by Pulse Oximetry: 97 (room air) Pulse Ox Interpretation: Normal - Radiology CXR: Interpreted by Me, Viewed By Me CXR Interpretation: Yes: Other (IMPRESSION:Pulmonary vascular congestion. No significant interval change in the lungs noted since the previous exam.) Medical Decision Making Medical Decision Making: EKG, CXR, and blood work ordered. Catapres administered. Patient to be admitted to telemetry for NSTEMI as per Dr. Liao, covering for Dr. iL. Disposition Discussed With : Kimberly Liao Doctor Will See Patient In The: Hospital Counseled Patient/Family Regarding: Diagnosis - Disposition Disposition: HOSPITALIZED Disposition Time: 11:14 Condition: FAIR Forms: [facility] (Scottish) - Clinical Impression Clinical Impression: Acute non-ST segment elevation myocardial infarction - Scribe Statement The provider has reviewed the documentation as recorded by the Scribe Flori Celeste All medical record entries made by the Scribe were at my direction and personally dictated by me. I have reviewed the chart and agree that the record accurately reflects my personal performance of the history, physical exam, medical decision making, and the department course for this patient. I have also personally directed, reviewed, and agree with the discharge instructions and disposition.
--- NOTE | 2017-09-08 08:28 | RAD ---
PROCEDURE: CHEST RADIOGRAPH, 1 VIEW HISTORY: chest pain COMPARISON: Comparison is made with 08/31/2017 FINDINGS: LUNGS: Mild to moderate pulmonary congestion is again noted. No significant interval change in the lungs noted since the previous exam. PLEURA: Blunting of both costophrenic angles CARDIOVASCULAR: The cardiac silhouette is prominent in size. Right-sided hemodialysis catheter seen in place. OSSEOUS STRUCTURES: No significant abnormalities. VISUALIZED UPPER ABDOMEN: Normal. OTHER FINDINGS: None. IMPRESSION: Pulmonary vascular congestion. No significant interval change in the lungs noted since the previous exam.
[2017-09-08 10:24] LABS: INR 1.2; PROTHROMBIN TIME 12.9 SECONDS (9.7-12.2)
[2017-09-08 10:32] LABS: ALB/GLOB RATIO 1.1 (1.0-2.1); ALBUMIN 3.7 g/dL (3.5-5.0); CALCIUM 8.5 mg/dl (8.6-10.4)
[2017-09-08 10:41] LABS: TROPONIN I 0.266 ng/mL (0.00-0.120)
[2017-09-08] MEDS ORDERED: HYDROmorphone 1 mg/ml ISec SC PRN (11:56)
[2017-09-08] MEDS ORDERED: HYDROmorphone 1 mg/ml ISec IVP PRN (12:45)
[2017-09-08] MEDS: Albuterol-Ipratrop 3 mg / 0.5 (3 ml) UD INH SCH (19:41)
[2017-09-08 21:38] LABS: CK-MB 1.59 ng/mL (0.0-3.38); TROPONIN I 0.499 ng/mL (0.00-0.120)
[2017-09-08] MEDS: (Lantus) Insulin Glargine, Recombinant SC SCH (22:28)
[2017-09-08] MEDS: (Novolin R) Insulin Human Regular 100 units/ml vial SC SCH (22:29)
[2017-09-09] MEDS: Albuterol-Ipratrop 3 mg / 0.5 (3 ml) UD INH SCH ×5 (00:40→23:31)
[2017-09-09 03:36] LABS: CK-MB 1.22 ng/mL (0.0-3.38)
[2017-09-09] MEDS: (Novolin R) Insulin Human Regular 100 units/ml vial SC SCH ×4 (07:55→22:07)
[2017-09-09] MEDS: Multivitamin Vitamin B Complex (Nephro-Vite) Tab PO SCH (08:41)
[2017-09-09] MEDS: Pantoprazole 40 mg EC Tab PO SCH (09:26)
[2017-09-09] MEDS: Valproic Acid 250 mg/5 ml UD Cup PO SCH ×4 (09:27→21:57)
--- NOTE | 2017-09-09 11:52 | HP ---
HISTORY OF PRESENT ILLNESS: The patient admitted to the hospital with chief complaint of weakness, fatigue, tiredness, shortness of breath, and chest pain with subsequent renal failure, diabetes, hypertension. PHYSICAL EXAMINATION: GENERAL: The patient is awake, alert, and oriented. VITAL SIGNS: Temperature is 98, pulse ____. HEENT: Within normal limits. CHEST: Symmetrical. HEART: Regular. ABDOMEN: Soft. EXTREMITIES: Bilateral amputation. ASSESSMENT AND PLAN: The patient suffers supportive care . Kimberly Liao MD
--- NOTE | 2017-09-09 12:29 | CP.PCM.CON ---
History of Present Illness - History of Present Illness History of Present Illness: 37 y/o with multiple hospital admissions Presents with c/o CP CP is chronic, occurs at rest, patient unable to ambulate due to B/L BKA and legal blindness > localized to 3-4 L. IC space and reproducible with palpation. > No respiratory distress EK09/09/17; NSR, LVH, chronic ST changes lateral, old nferior infarct. 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 moderate pulmonary stenosis Chronic diastolic dysfunction grade 3 Chronic pain Hx of non-compliance with meds and on occasion HD Past Patient History - Infectious Disease Hx of Infectious Diseases: None - Tetanus Immunizations Tetanus Immunization: >10 years Ago - Past Medical History & Family History Past Medical History?: Yes - Past Social History Smoking Status: Never Smoked - CARDIAC Hx Atrial Fibrillation: Yes Hx Cardia Arrhythmia: Yes Hx Congestive Heart Failure: Yes Hx Hypercholesterolemia: Yes Hx Hypertension: Yes - PULMONARY Hx Asthma: Yes Hx Bronchitis: Yes Hx Chronic Obstructive Pulmonary Disease (COPD): Yes Hx Pneumonia: Yes - NEUROLOGICAL Hx Alzheimer's Disease: Yes Hx Seizures: Yes - HEENT Hx HEENT Problems: Yes Hx Blind: Yes (legally blind) Hx Cataracts: Yes - RENAL Hx Chronic Kidney Disease: Yes - ENDOCRINE/METABOLIC Hx Hyperthyroidism: No Hx Hypothyroidism: Yes - HEMATOLOGICAL/ONCOLOGICAL Hx Anemia: Yes - INTEGUMENTARY Hx Dermatological Problems: No - MUSCULOSKELETAL/RHEUMATOLOGICAL Hx Arthritis: Yes - GASTROINTESTINAL Hx Gall Bladder Disease: Yes Hx Gastritis: Yes - GENITOURINARY/GYNECOLOGICAL Hx Sexually Transmitted Disorders: No - PSYCHIATRIC Hx Anxiety: Yes Hx Depression: Yes Hx Substance Use: No - SURGICAL HISTORY Hx Cholecystectomy: Yes (2011) 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/2009) Hx Coronary Stent: Yes - ANESTHESIA Hx Anesthesia: Yes Hx Anesthesia Reactions: No Hx Malignant Hyperthermia: No Meds Allergies/Adverse Reactions: Allergies Allergy/AdvReac Type Severity Reaction Status Date / Time acetaminophen [From Percocet] Allergy RASH Verified 09/08/17 06:47 atenolol Allergy RASH Verified 09/08/17 06:47 digoxin Allergy RASH Verified 09/08/17 06:47 milk Allergy ITCHING Verified 09/08/17 06:47 morphine Allergy RASH Verified 09/08/17 06:47 oxycodone HCl [From Percocet] Allergy RASH Verified 09/08/17 06:47 - Medications Medications: Current Medications Albuterol/Ipratropium (Duoneb 3 Mg/0.5 Mg (3 Ml) Ud) 3 ml INH RQ4 [facility] Last Admin: 09/09/17 11:28 Dose: Not Given Amiodarone HCl (Cordarone) 200 mg PO DAILY [facility] Last Admin: 09/09/17 09:26 Dose: 200 mg Amlodipine Besylate (Norvasc) 10 mg PO DAILY [facility] Last Admin: 09/09/17 09:27 Dose: 10 mg Aspirin (Aspirin Chewable) 81 mg PO DAILY [facility] Last Admin: 09/09/17 09:26 Dose: 81 mg Calcitriol (Rocaltrol) 0.25 mcg PO TTS [facility] Calcium Carbonate (Oscal) 500 mg PO BID [facility] Last Admin: 09/09/17 09:27 Dose: 500 mg Carvedilol (Coreg) 25 mg PO BID [facility] Last Admin: 09/09/17 09:26 Dose: 25 mg Clonidine HCl (Catapres-Tts3 0.3 Mg/24 Hr) 1 patch TD Q7D@1000 [facility] Docusate Sodium (Colace) 100 mg PO DAILY PRN PRN Reason: Constipation Last Admin: 09/09/17 09:26 Dose: 100 mg Heparin Sodium (Porcine) (Heparin) 5,000 units SC Q12 [facility] Last Admin: 09/09/17 09:41 Dose: 5,000 units Hydromorphone HCl (Dilaudid) 1 mg IVP Q4H PRN PRN Reason: Pain, severe (8-10) Last Admin: 09/09/17 09:28 Dose: 1 mg Insulin Glargine (Lantus) 18 unit SC HS [facility] Last Admin: 09/08/17 22:28 Dose: 18 units Insulin Human Regular (Novolin R) 0 unit SC ACHS [facility] PRN Reason: Protocol Last Admin: 09/09/17 07:55 Dose: Not Given Isosorbide Mononitrate (Imdur) 60 mg PO DAILY [facility] Last Admin: 09/09/17 09:27 Dose: 60 mg Lactulose (Enulose) 30 gm PO DAILY [facility] Last Admin: 09/09/17 09:51 Dose: Not Given Levetiracetam (Keppra) 500 mg PO BID [facility] Last Admin: 09/09/17 09:26 Dose: 500 mg Montelukast Sodium (Singulair) 10 mg PO HS [facility] Last Admin: 09/08/17 22:30 Dose: 10 mg Pantoprazole Sodium (Protonix Ec Tab) 40 mg PO DAILY [facility] Last Admin: 09/09/17 09:26 Dose: 40 mg Rosuvastatin Calcium (Crestor) 10 mg PO HS [facility] Last Admin: 09/08/17 22:29 Dose: 10 mg Sertraline HCl (Zoloft) 50 mg PO DAILY [facility] Last Admin: 09/09/17 09:26 Dose: 50 mg Sevelamer Carbonate (Renvela) 800 mg PO TIDCC [facility] Last Admin: 09/09/17 08:21 Dose: 800 mg Valproate Sodium (Depakene Oral Soln) 250 mg PO QID [facility] Last Admin: 09/09/17 09:27 Dose: 250 mg Vitamin B Complex/Vit C/Folic Acid (Nephro-Courtney) 1 tab PO 0800 [facility] Last Admin: 09/09/17 08:41 Dose: 1 tab Physical Exam - Constitutional Appears: Chronically Ill - Head Exam Head Exam: ATRAUMATIC, NORMAL INSPECTION, NORMOCEPHALIC - Eye Exam Eye Exam: absent: Normal appearance (legally blind) - ENT Exam ENT Exam: Mucous Membranes Moist, Normal Oropharynx - Respiratory Exam Respiratory Exam: Clear to Auscultation Bilateral. absent: Rhonchi, Wheezes - Cardiovascular Exam Cardiovascular Exam: REGULAR RHYTHM, +S1, +S2, Systolic Murmur - GI/Abdominal Exam GI & Abdominal Exam: Normal Bowel Sounds, Soft. absent: Tenderness - Extremities Exam Extremities exam: Negative for: normal inspection (b/l BKA) Results - Vital Signs Recent Vital Signs: Last Vital Signs Temp 99.2 F 09/09/17 07:55 Pulse 62 09/09/17 09:32 Resp 20 09/09/17 07:55 BP 152/88 H 09/09/17 09:32 Pulse Ox 100 09/09/17 07:55 - Labs Result Diagrams: 09/08/17 07:25 09/08/17 10:07 Labs: Laboratory Results - last 24 hr 09/08/17 09/08/17 09/08/17 17:50 21:00 21:50 POC Glucose (mg/dL) 159 H 184 H Total Creatine Kinase 25 L CK-MB (Mass) 1.59 Troponin I 0.4990 H* 09/09/17 09/09/17 02:11 07:18 POC Glucose (mg/dL) 142 H Total Creatine Kinase < 20 L CK-MB (Mass) 1.22 Troponin I 0.3680 H* - EKG Data EKG Interpreted by: Myself Assessment & Plan - Assessment and Plan (Free Text) Assessment: 37 y/o with transgender phenotype > DM brittle poorly controlled and hx of non-compliance > HTN is chronic and stable; with hx of non-compliance and sporadic lability > ESRD on HD with hx of non-compliance and missed sessions > PVD s/p bilateral BKA due to recurrent infections and progressive gangrene and non-healing ulcers > Legally blind Coronary artery disease s/p CABG and subsequent PCI all grafts are closed > He remains with preserved LV function and advanced diastolic dysfunction despite diffuse small vessel CAD (too small for PCI) > Noted mild inc in troponin now trending dowm 0.26 > 0.45 > 0.36 >> Patients complaint of CP is atypical and non-cardiac: there are no new EKG changes or unstable hemodynamics to suggest ACS/GA as cause. Minimal troponin rise may be related to chronic CAD/demand ischemia, ESRD > Medical therapy remains his most important and sole treatment option at this stage. > Continue ASA as tolerated, imdur, coreg, high intensity statin; ranexa and titrate these meds as tolerated to achieve optimal BP and HR control. (<120/80 and HR <65). * He unfortunately is not a candidate for any surgical or percutaneous therapy * He has had hx of atrial catheter related thrombus in past ---> he was challenged with AC on many occasions but due to GI bleed deemed unsafe * he has known documented hx of parx AFLUTTER/AFIB He should be on amiodarone 200 daily to mAINTAIN SINUS RHYTHM --> as he has had Aflutter recurrences in past Conservative rx and d/c home when stable.
[2017-09-09 13:16] LABS: CK-MB 1.12 ng/mL (0.0-3.38); TROPONIN I 0.334 ng/mL (0.00-0.120)
--- NOTE | 2017-09-09 16:12 | CP.PCM.CON ---
History of Present Illness - History of Present Illness History of Present Illness: Initial Nephrology Consultation: Assessment: Stable chronic chest pain Diabetic chronic Kidney Disease (E11.22) Hypertensive Chronic Kidney Disease (I12.0) End stage renal disease (N18.6) dependence on hemodialysis (Z99.2) (TTS) via AVF Anemia (D64.9), Hyperphosphatemia (E83.39), Secondary Hyperparathyroidism (E21.1 ), HTN (I12.0) CAD s/p CABG, diastolic CHF, pA flutter/fib, intra-cardiac thrombus, Heparin induced thrombocytopenia, hx of seizure, blindness Plan: No acute need today Will plan for routine dialysis tomorrow. Continue with Nephrovite 1 tab/day. PRBC as needed for anemia. last Hb 12.9 hence no HANNAH Continue with phos binders home dose Continue with calcitriol BP control with meds as ordered. Glycemic control, Dialysis consistent diet Further work up/management as per primary team Dose meds/antibiotics (if needed) for ESRD status. Avoid fleets enema/magnesium based laxatives. cardiology following Thanks for allowing me to participate in care of your patient. Will follow patient with you. Please call if any Qs Dr Eric Temple Office: [phone] Chief Complaint; chest pain HPI: Pt is a 37 y/o transgender M with hx of ESRD on hemodialysis (TTS) via permacath, chronic anemia, hyperphosphatemia, secondary hyperparathyroidism, Diabetes Mellitus, hypertension, CAD s/p CABG, diastolic CHF, pA flutter/fib, intra-cardiac thrombus, Heparin induced thrombocytopenia in past presented with complaints of acute on chronic chest pain. pt with frequent and multiple hospitalizations for same. c/o chronic chest pain, denies palpitation, c/o chronic shortness of breath ROS: All other negative. had nausea/vomitting this AM. Physical Examination: General Appearance: Comfortable, in no acute respiratory distress, co-operative . Vitals reviewed and noted as below Head; Atraumatic, normocephalic ENT: no ulcers no thrush. Tongue is midline. Oropharynx: no rash or ulcers. EYES: Pt is blind both eyes Neck; supple no lymphadenopathy, no thyromegaly or bruit Lungs: Normal respiratory rate/effort. Breath sounds bilateral equal clear Heart: Normal rate. s1s2 normal. No rub or gallop. Extremities: no edema. No varicose veins. has b/l BKA Neurological: Patient is alert, awake and oriented to person, place and time. No focal deficit. Strength bilateral appropriate and equal Skin: Warm and dry. Normal turgor. No rash. Palpitation: Normal elasticity for age Abdomen: Abdomen is soft. Bowel sounds +. There is no abdominal tenderness, no guarding/rigidity or organomegaly Psych: normal insight and normal affect/mood MSK: no joint tenderness or swelling. Digits and nails normal, no deformity : kidney or bladder not palpable Access: permacath Labs/imaging reviewed. Past medical history, past surgical history, family history, social history, allergy reviewed and noted as below Family Hx: no hx of CKD. Non contributory Past Patient History - Infectious Disease Hx of Infectious Diseases: None - Tetanus Immunizations Tetanus Immunization: >10 years Ago - Past Medical History & Family History Past Medical History?: Yes - Past Social History Smoking Status: Never Smoked - CARDIAC Hx Atrial Fibrillation: Yes Hx Cardia Arrhythmia: Yes Hx Congestive Heart Failure: Yes Hx Hypercholesterolemia: Yes Hx Hypertension: Yes - PULMONARY Hx Asthma: Yes Hx Bronchitis: Yes Hx Chronic Obstructive Pulmonary Disease (COPD): Yes Hx Pneumonia: Yes - NEUROLOGICAL Hx Alzheimer's Disease: Yes Hx Seizures: Yes - HEENT Hx HEENT Problems: Yes Hx Blind: Yes (legally blind) Hx Cataracts: Yes - RENAL Hx Chronic Kidney Disease: Yes - ENDOCRINE/METABOLIC Hx Hyperthyroidism: No Hx Hypothyroidism: Yes - HEMATOLOGICAL/ONCOLOGICAL Hx Anemia: Yes - INTEGUMENTARY Hx Dermatological Problems: No - MUSCULOSKELETAL/RHEUMATOLOGICAL Hx Arthritis: Yes - GASTROINTESTINAL Hx Gall Bladder Disease: Yes Hx Gastritis: Yes - GENITOURINARY/GYNECOLOGICAL Hx Sexually Transmitted Disorders: No - PSYCHIATRIC Hx Anxiety: Yes Hx Depression: Yes Hx Substance Use: No - SURGICAL HISTORY Hx Cholecystectomy: Yes (2011) 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/2009) Hx Coronary Stent: Yes - ANESTHESIA Hx Anesthesia: Yes Hx Anesthesia Reactions: No Hx Malignant Hyperthermia: No Meds Allergies/Adverse Reactions: Allergies Allergy/AdvReac Type Severity Reaction Status Date / Time acetaminophen [From Percocet] Allergy RASH Verified 09/08/17 06:47 atenolol Allergy RASH Verified 09/08/17 06:47 digoxin Allergy RASH Verified 09/08/17 06:47 milk Allergy ITCHING Verified 09/08/17 06:47 morphine Allergy RASH Verified 09/08/17 06:47 oxycodone HCl [From Percocet] Allergy RASH Verified 09/08/17 06:47 - Medications Medications: Current Medications Albuterol/Ipratropium (Duoneb 3 Mg/0.5 Mg (3 Ml) Ud) 3 ml INH RQ4 [facility] Last Admin: 09/09/17 11:28 Dose: Not Given Amiodarone HCl (Cordarone) 200 mg PO DAILY [facility] Last Admin: 09/09/17 09:26 Dose: 200 mg Amlodipine Besylate (Norvasc) 10 mg PO DAILY [facility] Last Admin: 09/09/17 09:27 Dose: 10 mg Aspirin (Aspirin Chewable) 81 mg PO DAILY [facility] Last Admin: 09/09/17 09:26 Dose: 81 mg Calcitriol (Rocaltrol) 0.25 mcg PO TTS [facility] Calcium Carbonate (Oscal) 500 mg PO BID [facility] Last Admin: 09/09/17 09:27 Dose: 500 mg Carvedilol (Coreg) 25 mg PO BID [facility] Last Admin: 09/09/17 09:26 Dose: 25 mg Clonidine HCl (Catapres-Tts3 0.3 Mg/24 Hr) 1 patch TD Q7D@1000 [facility] Docusate Sodium (Colace) 100 mg PO DAILY PRN PRN Reason: Constipation Last Admin: 09/09/17 09:26 Dose: 100 mg Heparin Sodium (Porcine) (Heparin) 5,000 units SC Q12 [facility] Last Admin: 09/09/17 09:41 Dose: 5,000 units Hydromorphone HCl (Dilaudid) 1 mg IVP Q4H PRN PRN Reason: Pain, severe (8-10) Last Admin: 09/09/17 13:48 Dose: 1 mg Insulin Glargine (Lantus) 18 unit SC HS [facility] Last Admin: 09/08/17 22:28 Dose: 18 units Insulin Human Regular (Novolin R) 0 unit SC ACHS [facility] PRN Reason: Protocol Last Admin: 09/09/17 13:14 Dose: 1 unit Isosorbide Mononitrate (Imdur) 60 mg PO DAILY [facility] Last Admin: 09/09/17 09:27 Dose: 60 mg Lactulose (Enulose) 30 gm PO DAILY [facility] Last Admin: 09/09/17 09:51 Dose: Not Given Levetiracetam (Keppra) 500 mg PO BID [facility] Last Admin: 09/09/17 09:26 Dose: 500 mg Montelukast Sodium (Singulair) 10 mg PO [facility] Last Admin: 09/08/17 22:30 Dose: 10 mg Pantoprazole Sodium (Protonix Ec Tab) 40 mg PO DAILY [facility] Last Admin: 09/09/17 09:26 Dose: 40 mg Rosuvastatin Calcium (Crestor) 10 mg PO [facility] Last Admin: 09/08/17 22:29 Dose: 10 mg Sertraline HCl (Zoloft) 50 mg PO DAILY [facility] Last Admin: 09/09/17 09:26 Dose: 50 mg Sevelamer Carbonate (Renvela) 800 mg PO TIDCC [facility] Last Admin: 09/09/17 12:14 Dose: 800 mg Valproate Sodium (Depakene Oral Soln) 250 mg PO QID [facility] Last Admin: 09/09/17 13:14 Dose: 250 mg Vitamin B Complex/Vit C/Folic Acid (Nephro-Courtney) 1 tab PO 0800 [facility] Last Admin: 09/09/17 08:41 Dose: 1 tab Results - Vital Signs Recent Vital Signs: Last Vital Signs Temp 99.2 F 09/09/17 07:55 Pulse 62 09/09/17 09:32 Resp 20 09/09/17 07:55 BP 152/88 H 09/09/17 09:32 Pulse Ox 100 09/09/17 07:55 - Labs Result Diagrams: 09/08/17 07:25 09/08/17 10:07 Labs: Laboratory Results - last 24 hr 09/08/17 09/08/17 09/08/17 17:50 21:00 21:50 POC Glucose (mg/dL) 159 H 184 H Total Creatine Kinase 25 L CK-MB (Mass) 1.59 Troponin I 0.4990 H* 09/09/17 09/09/17 09/09/17 02:11 07:18 12:28 POC Glucose (mg/dL) 142 H 180 H Total Creatine Kinase < 20 L CK-MB (Mass) 1.22 Troponin I 0.3680 H* 09/09/17 12:31 POC Glucose (mg/dL) Total Creatine Kinase 21 L CK-MB (Mass) 1.12 Troponin I 0.3340 H*
--- NOTE | 2017-09-09 19:19 | CP.PCM.PN ---
Subjective - Date & Time of Evaluation Date of Evaluation: 09/09/17 Time of Evaluation: 09:55 - Subjective Subjective: Dr. Liao note: Patient is seen and examined in room with Dr. Liao. Patient is a 37 year old transgendered person who is here for chest pain and admitted with elevated in troponin. Patient is still complaing of chest which has mildy improved. Objective - Vital Signs/Intake and Output Vital Signs (last 24 hours): Temp Pulse Resp BP Pulse Ox 97.5 F L 65 20 106/60 100 09/09/17 16:00 09/09/17 16:00 09/09/17 16:00 09/09/17 16:00 09/09/17 16:00 - Medications Medications: Current Medications Albuterol/Ipratropium (Duoneb 3 Mg/0.5 Mg (3 Ml) Ud) 3 ml INH RQ4 [facility] Last Admin: 09/09/17 16:23 Dose: 3 ml Amiodarone HCl (Cordarone) 200 mg PO DAILY [facility] Last Admin: 09/09/17 09:26 Dose: 200 mg Amlodipine Besylate (Norvasc) 10 mg PO DAILY [facility] Last Admin: 09/09/17 09:27 Dose: 10 mg Aspirin (Aspirin Chewable) 81 mg PO DAILY [facility] Last Admin: 09/09/17 09:26 Dose: 81 mg Calcitriol (Rocaltrol) 0.25 mcg PO TTS [facility] Calcium Carbonate (Oscal) 500 mg PO BID [facility] Last Admin: 09/09/17 17:47 Dose: 500 mg Carvedilol (Coreg) 25 mg PO BID [facility] Last Admin: 09/09/17 09:26 Dose: 25 mg Clonidine HCl (Catapres-Tts3 0.3 Mg/24 Hr) 1 patch TD Q7D@1000 [facility] Docusate Sodium (Colace) 100 mg PO DAILY PRN PRN Reason: Constipation Last Admin: 09/09/17 09:26 Dose: 100 mg Heparin Sodium (Porcine) (Heparin) 5,000 units SC Q12 [facility] Last Admin: 09/09/17 09:41 Dose: 5,000 units Hydromorphone HCl (Dilaudid) 1 mg IVP Q4H PRN PRN Reason: Pain, severe (8-10) Last Admin: 09/09/17 17:47 Dose: 1 mg Insulin Glargine (Lantus) 18 unit SC [facility] Last Admin: 09/08/17 22:28 Dose: 18 units Insulin Human Regular (Novolin R) 0 unit SC [facility] PRN Reason: Protocol Last Admin: 09/09/17 17:59 Dose: 1 unit Isosorbide Mononitrate (Imdur) 60 mg PO DAILY [facility] Last Admin: 09/09/17 09:27 Dose: 60 mg Lactulose (Enulose) 30 gm PO DAILY [facility] Last Admin: 09/09/17 09:51 Dose: Not Given Levetiracetam (Keppra) 500 mg PO BID [facility] Last Admin: 09/09/17 17:47 Dose: 500 mg Montelukast Sodium (Singulair) 10 mg PO [facility] Last Admin: 09/08/17 22:30 Dose: 10 mg Pantoprazole Sodium (Protonix Ec Tab) 40 mg PO DAILY [facility] Last Admin: 09/09/17 09:26 Dose: 40 mg Rosuvastatin Calcium (Crestor) 10 mg PO [facility] Last Admin: 09/08/17 22:29 Dose: 10 mg Sertraline HCl (Zoloft) 50 mg PO DAILY [facility] Last Admin: 09/09/17 09:26 Dose: 50 mg Sevelamer Carbonate (Renvela) 800 mg PO TIDCC [facility] Last Admin: 09/09/17 17:47 Dose: 800 mg Valproate Sodium (Depakene Oral Soln) 250 mg PO QID [facility] Last Admin: 09/09/17 17:59 Dose: 250 mg Vitamin B Complex/Vit C/Folic Acid (Nephro-Courtney) 1 tab PO 0800 [facility] Last Admin: 09/09/17 08:41 Dose: 1 tab - Labs Labs: 09/08/17 07:25 09/08/17 10:07 PT 12.9 SECONDS (9.7-12.2) H 09/08/17 10:07 INR 1.2 09/08/17 10:07 APTT 23 SECONDS (21-34) 09/08/17 10:07 - Constitutional Appears: Non-toxic, No Acute Distress, Unkempt - Eye Exam Eye Exam: Normal appearance Pupil Exam: NORMAL ACCOMODATION - Respiratory Exam Respiratory Exam: Clear to Ausculation Bilateral. absent: Rhonchi, Wheezes - Cardiovascular Exam Cardiovascular Exam: REGULAR RHYTHM, +S1, +S2. absent: Gallop, Rubs - GI/Abdominal Exam GI & Abdominal Exam: Soft, Normal Bowel Sounds. absent: Tenderness - Extremities Exam Additional comments: bilateral AKA - Psychiatric Exam Psychiatric exam: Anxious - Skin Skin Exam: Normal Color Assessment and Plan (1) Acute non-ST segment elevation myocardial infarction Assessment & Plan: Patient is admitted for elevated for troponin. Cardiology seen patient and evidence that rise in troponin is from chronic CAD and ESRD. He is not a candidate for any intervention at this time. Status: Acute (2) ESRD on hemodialysis Assessment & Plan: continue dialysis. Status: Chronic (3) Diabetes mellitus with retinopathy Assessment & Plan: Continue with insulin. Follow up morning cmp, hbg a1c, cbc, mag, and phos. Status: Chronic (4) CAD (coronary artery disease) Assessment & Plan: Cardiology consult, please see his consult note. Status: Acute (5) Asthma Assessment & Plan: Singular and duoneb q4h. Status: Chronic (6) HTN (hypertension) Assessment & Plan: Continue Coreg, Clonidine patch, and Norvasc. Status: Acute (7) Seizure disorder Assessment & Plan: Patient is one Depakoate and Keprra, no recent active seizure. Status: Chronic (8) Afib Assessment & Plan: proxismal afib, not a good candidant for anticoaugation due to GI bleed in the past per cardiology's note, on amiodrone for rate control at 200mg Status: Chronic (9) Prophylactic measure Assessment & Plan: Heparin 5000 units sc q12h lactuloe 30mg daily Dialuded 1mg q4h prn for pain control protonix 40mg Status: Chronic
[2017-09-09] MEDS: (Lantus) Insulin Glargine, Recombinant SC SCH (21:49)
--- NOTE | 2017-09-10 00:04 | CARD ---
APPROVED REPORT EKG Measurement Heart [id number] <Conclusion> Normal sinus rhythm Left ventricular hypertrophy with QRS widening and repolarization abnormality Prolonged QT Abnormal ECG
[2017-09-10] MEDS: Albuterol-Ipratrop 3 mg / 0.5 (3 ml) UD INH SCH ×6 (03:06→23:50)
[2017-09-10] MEDS: (Novolin R) Insulin Human Regular 100 units/ml vial SC SCH ×4 (07:49→21:45)
[2017-09-10] MEDS: Multivitamin Vitamin B Complex (Nephro-Vite) Tab PO SCH (08:24)
[2017-09-10] MEDS: Pantoprazole 40 mg EC Tab PO SCH (09:03)
[2017-09-10] MEDS: Valproic Acid 250 mg/5 ml UD Cup PO SCH ×4 (09:04→21:52)
--- NOTE | 2017-09-10 09:56 | CP.PCM.PN ---
Subjective - Date & Time of Evaluation Date of Evaluation: 09/10/17 Time of Evaluation: 09:56 Objective - Vital Signs/Intake and Output Vital Signs (last 24 hours): Temp Pulse Resp BP Pulse Ox 98.2 F 69 20 138/77 98 09/09/17 23:50 09/10/17 00:00 09/09/17 23:50 09/09/17 23:50 09/09/17 23:50 - Medications Medications: Current Medications Albuterol/Ipratropium (Duoneb 3 Mg/0.5 Mg (3 Ml) Ud) 3 ml INH RQ4 [facility] Last Admin: 09/10/17 07:41 Dose: Not Given Amiodarone HCl (Cordarone) 200 mg PO DAILY [facility] Last Admin: 09/10/17 09:19 Dose: 200 mg Amlodipine Besylate (Norvasc) 10 mg PO DAILY [facility] Last Admin: 09/09/17 09:27 Dose: 10 mg Aspirin (Aspirin Chewable) 81 mg PO DAILY [facility] Last Admin: 09/10/17 09:04 Dose: 81 mg Calcitriol (Rocaltrol) 0.25 mcg PO TTS [facility] Calcium Carbonate (Oscal) 500 mg PO BID [facility] Last Admin: 09/10/17 09:03 Dose: 500 mg Carvedilol (Coreg) 25 mg PO BID [facility] Last Admin: 09/09/17 21:58 Dose: Not Given Clonidine HCl (Catapres-Tts3 0.3 Mg/24 Hr) 1 patch TD Q7D@1000 [facility] Docusate Sodium (Colace) 100 mg PO DAILY PRN PRN Reason: Constipation Last Admin: 09/09/17 09:26 Dose: 100 mg Heparin Sodium (Porcine) (Heparin) 5,000 units SC Q12 [facility] Last Admin: 09/10/17 09:04 Dose: 5,000 units Hydromorphone HCl (Dilaudid) 1 mg IVP Q4H PRN PRN Reason: Pain, severe (8-10) Last Admin: 09/10/17 06:09 Dose: 1 mg Insulin Glargine (Lantus) 18 unit SC HS [facility] Last Admin: 09/09/17 21:49 Dose: Not Given Insulin Human Regular (Novolin R) 0 unit SC ACHS [facility] PRN Reason: Protocol Last Admin: 09/10/17 07:49 Dose: Not Given Isosorbide Mononitrate (Imdur) 60 mg PO DAILY [facility] Last Admin: 09/09/17 09:27 Dose: 60 mg Lactulose (Enulose) 30 gm PO DAILY [facility] Last Admin: 09/10/17 09:17 Dose: Not Given Levetiracetam (Keppra) 500 mg PO BID [facility] Last Admin: 09/10/17 09:04 Dose: 500 mg Montelukast Sodium (Singulair) 10 mg PO [facility] Last Admin: 09/09/17 21:57 Dose: 10 mg Ondansetron HCl (Zofran Inj) 4 mg IVP Q8 PRN PRN Reason: Pain, severe (8-10) Pantoprazole Sodium (Protonix Ec Tab) 40 mg PO DAILY [facility] Last Admin: 09/10/17 09:03 Dose: 40 mg Rosuvastatin Calcium (Crestor) 10 mg PO [facility] Last Admin: 09/09/17 21:57 Dose: 10 mg Sertraline HCl (Zoloft) 50 mg PO DAILY [facility] Last Admin: 09/10/17 09:03 Dose: 50 mg Sevelamer Carbonate (Renvela) 800 mg PO TIDCC [facility] Last Admin: 09/10/17 08:24 Dose: 800 mg Valproate Sodium (Depakene Oral Soln) 250 mg PO QID [facility] Last Admin: 09/10/17 09:04 Dose: 250 mg Vitamin B Complex/Vit C/Folic Acid (Nephro-Courtney) 1 tab PO 0800 [facility] Last Admin: 09/10/17 08:24 Dose: 1 tab - Labs Labs: 09/08/17 07:25 09/08/17 10:07 PT 12.9 SECONDS (9.7-12.2) H 09/08/17 10:07 INR 1.2 09/08/17 10:07 APTT 23 SECONDS (21-34) 09/08/17 10:07
[2017-09-10 10:13] LABS: BASO # 0.1 K/uL (0.0-0.2); BASO % 0.7 % (0.0-2.0); EOS # 0.4 K/uL (0.0-0.7); EOS % 4.4 % (0.0-4.0); LYMPH # 2.6 K/uL (1.0-4.3); LYMPH % 28.1 % (20.0-40.0); MEAN CELL VOLUME 90.4 fL (80.0-94.0); MEAN CORPUSCULAR HEMOGLOBIN 29.5 pg (27.0-31.0); MEAN CORPUSCULAR HGB CONC 32.7 g/dL (33.0-37.0); MEAN PLATELET VOLUME 9.8 fL (7.2-11.7); MONO # 0.5 K/uL (0.0-0.8); NEUT # 5.8 K/uL (1.8-7.0); NEUT % 61.8 % (50.0-75.0); RBC 3.03 Mil/uL (4.40-5.90); RED CELL DISTRIBUTION WIDTH 19.8 % (11.5-14.5); WHITE BLOOD COUNT 9.3 K/uL (4.8-10.8)
--- NOTE | 2017-09-10 10:31 | CP.PCM.HP ---
History of Present Illness - History of Present Illness History of Present Illness: pt came in back and admited from er for chest pain sob and palpitation still has chest pain son and cough Present on Admission - Present on Admission Any Indicators Present on Admission: Yes Review of Systems - Review of Systems Systems not reviewed;Unavailable: Acuity of Condition, Respiratory Distress - Constitutional Constitutional: Fatigue - EENT Eyes: Blind Spots Nose/Mouth/Throat: As Per HPI - Cardiovascular Cardiovascular: Chest Pain, Chest Pain at Rest, Dyspnea, Palpitations - Respiratory Respiratory: Cough, Dyspnea - Gastrointestinal Gastrointestinal: Abdominal Pain, Vomiting - Genitourinary Genitourinary: As Per HPI - Musculoskeletal Additional comments: bilateral amputation - Integumentary Integumentary: New Lesions - Neurological Neurological: Numbness - Psychiatric Psychiatric: Depression - Endocrine Endocrine: Cold Intolorance - Hematologic/Lymphatic Hematologic: As Per HPI Past Patient History - Infectious Disease Hx of Infectious Diseases: None - Tetanus Immunizations Tetanus Immunization: >10 years Ago - Past Medical History & Family History Past Medical History?: Yes - Past Social History Smoking Status: Never Smoked - CARDIAC Hx Atrial Fibrillation: Yes Hx Cardia Arrhythmia: Yes Hx Congestive Heart Failure: Yes Hx Hypercholesterolemia: Yes Hx Hypertension: Yes - PULMONARY Hx Asthma: Yes Hx Bronchitis: Yes Hx Chronic Obstructive Pulmonary Disease (COPD): Yes Hx Pneumonia: Yes - NEUROLOGICAL Hx Alzheimer's Disease: Yes Hx Seizures: Yes - HEENT Hx HEENT Problems: Yes Hx Blind: Yes (legally blind) Hx Cataracts: Yes - RENAL Hx Chronic Kidney Disease: Yes - ENDOCRINE/METABOLIC Hx Hyperthyroidism: No Hx Hypothyroidism: Yes - HEMATOLOGICAL/ONCOLOGICAL Hx Anemia: Yes - INTEGUMENTARY Hx Dermatological Problems: No - MUSCULOSKELETAL/RHEUMATOLOGICAL Hx Arthritis: Yes - GASTROINTESTINAL Hx Gall Bladder Disease: Yes Hx Gastritis: Yes - GENITOURINARY/GYNECOLOGICAL Hx Sexually Transmitted Disorders: No - PSYCHIATRIC Hx Anxiety: Yes Hx Depression: Yes Hx Substance Use: No - SURGICAL HISTORY Hx Cholecystectomy: Yes (2011) 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/2009) Hx Coronary Stent: Yes - ANESTHESIA Hx Anesthesia: Yes Hx Anesthesia Reactions: No Hx Malignant Hyperthermia: No Meds Allergies/Adverse Reactions: Allergies Allergy/AdvReac Type Severity Reaction Status Date / Time acetaminophen [From Percocet] Allergy RASH Verified 09/08/17 06:47 atenolol Allergy RASH Verified 09/08/17 06:47 digoxin Allergy RASH Verified 09/08/17 06:47 milk Allergy ITCHING Verified 09/08/17 06:47 morphine Allergy RASH Verified 09/08/17 06:47 oxycodone HCl [From Percocet] Allergy RASH Verified 09/08/17 06:47 Physical Exam - Constitutional Appears: Non-toxic, In Acute Distress - Head Exam Head Exam: ATRAUMATIC - Eye Exam Eye Exam: Conjunctival injection Additional comments: legaly blind - ENT Exam ENT Exam: Mucous Membranes Dry - Neck Exam Neck exam: Positive for: Full Rom - Respiratory Exam Respiratory Exam: Decreased Breath Sounds, Rales, Rhonchi - Cardiovascular Exam Cardiovascular Exam: REGULAR RHYTHM - GI/Abdominal Exam GI & Abdominal Exam: Distended, Tenderness - Rectal Exam Rectal Exam: NORMAL INSPECTION - Neurological Exam Neurological exam: Oriented x3 - Psychiatric Exam Psychiatric exam: Depressed - Skin Skin Exam: Pallor Results - Vital Signs Recent Vital Signs: Last Vital Signs Temp 97.5 F L 09/10/17 09:55 Pulse 51 L 09/10/17 09:50 Resp 20 09/10/17 09:55 BP 109/51 L 09/10/17 10:10 Pulse Ox 100 09/10/17 09:55 - Labs Result Diagrams: 09/10/17 10:08 09/08/17 10:07 Labs: Laboratory Results - last 24 hr 09/09/17 09/09/17 09/09/17 12:28 12:31 16:35 WBC RBC Hgb Hct MCV MCH MCHC RDW Plt Count MPV Neut % (Auto) Lymph % (Auto) [place] % (Auto) Eos % (Auto) Baso % (Auto) Neut # Lymph # [place] # Eos # Baso # POC Glucose (mg/dL) 180 H 175 H Total Creatine Kinase 21 L CK-MB (Mass) 1.12 Troponin I 0.3340 H* 09/09/17 09/10/17 09/10/17 21:31 02:10 06:27 WBC RBC Hgb Hct MCV MCH MCHC RDW Plt Count MPV Neut % (Auto) Lymph % (Auto) [place] % (Auto) Eos % (Auto) Baso % (Auto) Neut # Lymph # [place] # Eos # Baso # POC Glucose (mg/dL) 84 158 H 119 H Total Creatine Kinase CK-MB (Mass) Troponin I 09/10/17 10:08 WBC 9.3 RBC 3.03 L Hgb 9.0 L D Hct 27.4 L MCV 90.4 MCH 29.5 MCHC 32.7 L RDW 19.8 H Plt Count 144 MPV 9.8 Neut % (Auto) 61.8 Lymph % (Auto) 28.1 [place] % (Auto) 5.0 Eos % (Auto) 4.4 H Baso % (Auto) 0.7 Neut # 5.8 Lymph # 2.6 [place] # 0.5 Eos # 0.4 Baso # 0.1 POC Glucose (mg/dL) Total Creatine Kinase CK-MB (Mass) Troponin I Assessment & Plan - Assessment and Plan (Free Text) Assessment: ac chest pain cad chf dm esrf Plan: as per orders - Date & Time Date: 09/10/17 Time: 10:35
[2017-09-10 10:48] LABS: ALB/GLOB RATIO 1.2 (1.0-2.1); ALBUMIN 3.5 g/dL (3.5-5.0); CALCIUM 7.4 mg/dl (8.6-10.4); MAGNESIUM 1.9 mg/dL (1.6-2.3)
[2017-09-10] MEDS: EPOETIN ALFA 4,000 UNIT/ML ML Dialysis IV SCH (12:55)
--- NOTE | 2017-09-10 15:48 | CP.PCM.PN ---
Subjective - Date & Time of Evaluation Date of Evaluation: 09/10/17 Time of Evaluation: 15:47 - Subjective Subjective: Follow up Nephrology Consultation: Assessment: Stable chronic chest pain Diabetic chronic Kidney Disease (E11.22) Hypertensive Chronic Kidney Disease (I12.0) End stage renal disease (N18.6) dependence on hemodialysis (Z99.2) (TTS) via AVF Anemia (D64.9), Hyperphosphatemia (E83.39), Secondary Hyperparathyroidism (E21.1 ), HTN (I12.0) CAD s/p CABG, diastolic CHF, pA flutter/fib, intra-cardiac thrombus, Heparin induced thrombocytopenia, hx of seizure, blindness Plan: dialysis today as per TTS schedule. Continue with Nephrovite 1 tab/day. PRBC as needed for anemia. last Hb 9, started on epogen with HD Continue with phos binders home dose Continue with calcitriol BP control with meds as ordered. Glycemic control, Dialysis consistent diet Further work up/management as per primary team Dose meds/antibiotics (if needed) for ESRD status. Avoid fleets enema/magnesium based laxatives. cardiology following Thanks for allowing me to participate in care of your patient. Will follow patient with you. Please call if any Qs Dr Eric Temple Office: [phone] Chief Complaint; chest pain HPI: Pt is a 37 y/o transgender M with hx of ESRD on hemodialysis (TTS) via permacath, chronic anemia, hyperphosphatemia, secondary hyperparathyroidism, Diabetes Mellitus, hypertension, CAD s/p CABG, diastolic CHF, pA flutter/fib, intra-cardiac thrombus, Heparin induced thrombocytopenia in past presented with complaints of acute on chronic chest pain. pt with frequent and multiple hospitalizations for same. c/o chronic chest pain, denies palpitation, c/o chronic shortness of breath Physical Examination: seen on HD General Appearance: Comfortable, in no acute respiratory distress, co-operative . Vitals reviewed and noted as below Head; Atraumatic, normocephalic ENT: no ulcers no thrush. Tongue is midline. Oropharynx: no rash or ulcers. EYES: Pt is blind both eyes Neck; supple no lymphadenopathy, no thyromegaly or bruit Lungs: Normal respiratory rate/effort. Breath sounds bilateral equal clear Heart: Normal rate. s1s2 normal. No rub or gallop. Extremities: no edema. No varicose veins. has b/l BKA Neurological: Patient is alert, awake and oriented to person, place and time. No focal deficit. Strength bilateral appropriate and equal Skin: Warm and dry. Normal turgor. No rash. Palpitation: Normal elasticity for age Abdomen: Abdomen is soft. Bowel sounds +. There is no abdominal tenderness, no guarding/rigidity or organomegaly Psych: normal insight and normal affect/mood MSK: no joint tenderness or swelling. Digits and nails normal, no deformity : kidney or bladder not palpable Access: permacath Labs/imaging reviewed. Past medical history, past surgical history, family history, social history, allergy reviewed and noted as below Family Hx: no hx of CKD. Non contributory Objective - Vital Signs/Intake and Output Vital Signs (last 24 hours): Temp Pulse Resp BP Pulse Ox 97.5 F L 65 20 129/78 100 09/10/17 14:53 09/10/17 14:53 09/10/17 14:53 09/10/17 14:53 09/10/17 14:53 - Medications Medications: Current Medications Albuterol/Ipratropium (Duoneb 3 Mg/0.5 Mg (3 Ml) Ud) 3 ml INH RQ4 [facility] Last Admin: 09/10/17 11:36 Dose: Not Given Amiodarone HCl (Cordarone) 200 mg PO DAILY [facility] Last Admin: 09/10/17 09:19 Dose: 200 mg Amlodipine Besylate (Norvasc) 10 mg PO DAILY [facility] Last Admin: 09/09/17 09:27 Dose: 10 mg Aspirin (Aspirin Chewable) 81 mg PO DAILY [facility] Last Admin: 09/10/17 09:04 Dose: 81 mg Calcitriol (Rocaltrol) 0.25 mcg PO TTS [facility] Last Admin: 09/10/17 14:58 Dose: 0.25 mcg Calcium Carbonate (Oscal) 500 mg PO BID [facility] Last Admin: 09/10/17 09:03 Dose: 500 mg Carvedilol (Coreg) 25 mg PO BID [facility] Last Admin: 09/09/17 21:58 Dose: Not Given Clonidine HCl (Catapres-Tts3 0.3 Mg/24 Hr) 1 patch TD Q7D@1000 [facility] Docusate Sodium (Colace) 100 mg PO DAILY PRN PRN Reason: Constipation Last Admin: 09/09/17 09:26 Dose: 100 mg Epoetin Tom (Procrit) 4,000 unit IV TTS [facility] Last Admin: 09/10/17 12:55 Dose: 4,000 unit Heparin Sodium (Porcine) (Heparin) 5,000 units SC Q12 [facility] Last Admin: 09/10/17 09:04 Dose: 5,000 units Hydromorphone HCl (Dilaudid) 1 mg IVP Q4H PRN PRN Reason: Pain, severe (8-10) Last Admin: 09/10/17 14:58 Dose: 1 mg Insulin Glargine (Lantus) 18 unit SC [facility] Last Admin: 09/09/17 21:49 Dose: Not Given Insulin Human Regular (Novolin R) 0 unit SC [facility] PRN Reason: Protocol Last Admin: 09/10/17 07:49 Dose: Not Given Isosorbide Mononitrate (Imdur) 60 mg PO DAILY [facility] Last Admin: 09/09/17 09:27 Dose: 60 mg Lactulose (Enulose) 30 gm PO DAILY [facility] Last Admin: 09/10/17 09:17 Dose: Not Given Levetiracetam (Keppra) 500 mg PO BID [facility] Last Admin: 09/10/17 09:04 Dose: 500 mg Montelukast Sodium (Singulair) 10 mg PO [facility] Last Admin: 09/09/17 21:57 Dose: 10 mg Ondansetron HCl (Zofran Inj) 4 mg IVP Q8 PRN PRN Reason: Pain, severe (8-10) Pantoprazole Sodium (Protonix Ec Tab) 40 mg PO DAILY [facility] Last Admin: 09/10/17 09:03 Dose: 40 mg Rosuvastatin Calcium (Crestor) 10 mg PO HS [facility] Last Admin: 09/09/17 21:57 Dose: 10 mg Sertraline HCl (Zoloft) 50 mg PO DAILY [facility] Last Admin: 09/10/17 09:03 Dose: 50 mg Sevelamer Carbonate (Renvela) 800 mg PO TIDCC [facility] Last Admin: 09/10/17 14:58 Dose: 800 mg Valproate Sodium (Depakene Oral Soln) 250 mg PO QID [facility] Last Admin: 09/10/17 14:58 Dose: 250 mg Vitamin B Complex/Vit C/Folic Acid (Nephro-Courtney) 1 tab PO 0800 [facility] Last Admin: 09/10/17 08:24 Dose: 1 tab - Labs Labs: 09/10/17 10:08 09/10/17 10:08 PT 12.9 SECONDS (9.7-12.2) H 09/08/17 10:07 INR 1.2 09/08/17 10:07 APTT 23 SECONDS (21-34) 09/08/17 10:07
[2017-09-10] MEDS: (Lantus) Insulin Glargine, Recombinant SC SCH (21:45)
[2017-09-11] MEDS: Albuterol-Ipratrop 3 mg / 0.5 (3 ml) UD INH SCH ×6 (03:03→23:58)
[2017-09-11 07:51] LABS: TROPONIN I 0.133 ng/mL (0.00-0.120)
[2017-09-11] MEDS: (Novolin R) Insulin Human Regular 100 units/ml vial SC SCH ×4 (08:30→21:47)
[2017-09-11] MEDS: Multivitamin Vitamin B Complex (Nephro-Vite) Tab PO SCH (08:33)
[2017-09-11] MEDS: Valproic Acid 250 mg/5 ml UD Cup PO SCH ×4 (09:20→22:01)
[2017-09-11] MEDS: Pantoprazole 40 mg EC Tab PO SCH (09:21)
--- NOTE | 2017-09-11 10:06 | CP.PCM.PN ---
Subjective - Date & Time of Evaluation Date of Evaluation: 09/11/17 Time of Evaluation: 10:03 - Subjective Subjective: less chest pain has sob abd pain cough Objective - Vital Signs/Intake and Output Vital Signs (last 24 hours): Temp Pulse Resp BP Pulse Ox 98.8 F 71 20 122/79 100 09/11/17 07:00 09/11/17 07:00 09/11/17 07:00 09/11/17 09:35 09/11/17 07:00 Intake and Output: 09/11/17 09/11/17 06:59 18:59 Intake Total 120 Balance 120 - Medications Medications: Current Medications Albuterol/Ipratropium (Duoneb 3 Mg/0.5 Mg (3 Ml) Ud) 3 ml INH RQ4 [facility] Last Admin: 09/11/17 07:49 Dose: 3 ml Amiodarone HCl (Cordarone) 200 mg PO DAILY [facility] Last Admin: 09/11/17 09:35 Dose: 200 mg Amlodipine Besylate (Norvasc) 10 mg PO DAILY [facility] Last Admin: 09/11/17 09:35 Dose: 10 mg Aspirin (Aspirin Chewable) 81 mg PO DAILY [facility] Last Admin: 09/11/17 09:23 Dose: 81 mg Calcitriol (Rocaltrol) 0.25 mcg PO TTS [facility] Last Admin: 09/10/17 14:58 Dose: 0.25 mcg Calcium Carbonate (Oscal) 500 mg PO BID [facility] Last Admin: 09/11/17 09:23 Dose: 500 mg Carvedilol (Coreg) 25 mg PO BID [facility] Last Admin: 09/11/17 09:35 Dose: 25 mg Clonidine HCl (Catapres-Tts3 0.3 Mg/24 Hr) 1 patch TD Q7D@1000 [facility] Docusate Sodium (Colace) 100 mg PO DAILY PRN PRN Reason: Constipation Last Admin: 09/09/17 09:26 Dose: 100 mg Epoetin Tom (Procrit) 4,000 unit IV TTS [facility] Last Admin: 09/10/17 12:55 Dose: 4,000 unit Heparin Sodium (Porcine) (Heparin) 5,000 units SC Q12 [facility] Last Admin: 09/11/17 09:26 Dose: 5,000 units Hydromorphone HCl (Dilaudid) 1 mg IVP Q4H PRN PRN Reason: Pain, severe (8-10) Last Admin: 09/11/17 08:30 Dose: 1 mg Insulin Glargine (Lantus) 18 unit SC [facility] Last Admin: 09/10/17 21:45 Dose: Not Given Insulin Human Regular (Novolin R) 0 unit SC [facility] PRN Reason: Protocol Last Admin: 09/11/17 08:30 Dose: 1 unit Isosorbide Mononitrate (Imdur) 60 mg PO DAILY [facility] Last Admin: 09/11/17 09:35 Dose: 60 mg Lactulose (Enulose) 30 gm PO DAILY [facility] Last Admin: 09/11/17 09:20 Dose: 30 gm Levetiracetam (Keppra) 500 mg PO BID [facility] Last Admin: 09/11/17 09:23 Dose: 500 mg Montelukast Sodium (Singulair) 10 mg PO [facility] Last Admin: 09/10/17 21:51 Dose: 10 mg Ondansetron HCl (Zofran Inj) 4 mg IVP Q8 PRN PRN Reason: Pain, severe (8-10) Last Admin: 09/10/17 19:10 Dose: 4 mg Pantoprazole Sodium (Protonix Ec Tab) 40 mg PO DAILY [facility] Last Admin: 09/11/17 09:21 Dose: 40 mg Rosuvastatin Calcium (Crestor) 10 mg PO [facility] Last Admin: 09/10/17 21:51 Dose: 10 mg Sertraline HCl (Zoloft) 50 mg PO DAILY [facility] Last Admin: 09/11/17 09:21 Dose: 50 mg Sevelamer Carbonate (Renvela) 800 mg PO TIDCC [facility] Last Admin: 09/11/17 08:33 Dose: 800 mg Sucralfate (Carafate Oral Susp) 1 gm PO QID [facility] Valproate Sodium (Depakene Oral Soln) 250 mg PO QID [facility] Last Admin: 09/11/17 09:20 Dose: 250 mg Vitamin B Complex/Vit C/Folic Acid (Nephro-Courtney) 1 tab PO 0800 [facility] Last Admin: 09/11/17 08:33 Dose: 1 tab - Labs Labs: 09/10/17 10:08 09/10/17 10:08 PT 12.9 SECONDS (9.7-12.2) H 09/08/17 10:07 INR 1.2 09/08/17 10:07 APTT 23 SECONDS (21-34) 09/08/17 10:07 - Constitutional Appears: Non-toxic - Head Exam Head Exam: ATRAUMATIC - Eye Exam Eye Exam: Conjunctival injection - ENT Exam ENT Exam: Normal Exam - Neck Exam Neck Exam: Full ROM - Respiratory Exam Respiratory Exam: Decreased Breath Sounds, Rales - Cardiovascular Exam Cardiovascular Exam: REGULAR RHYTHM - GI/Abdominal Exam GI & Abdominal Exam: Tenderness - Rectal Exam Rectal Exam: NORMAL INSPECTION - Back Exam Back Exam: NORMAL INSPECTION - Neurological Exam Neurological Exam: Oriented x3 - Psychiatric Exam Psychiatric exam: Normal Affect - Skin Skin Exam: Pallor Assessment and Plan - Assessment and Plan (Free Text) Assessment: cad chf abd pain htn esrf dm Plan: as per orders
[2017-09-11] MEDS: Sucralfate 1 gm/10 ml Oral Susp UD PO SCH ×4 (10:41→22:01)
--- NOTE | 2017-09-11 11:41 | CP.PCM.PN ---
Subjective - Date & Time of Evaluation Date of Evaluation: 09/11/17 Time of Evaluation: 11:40 - Subjective Subjective: Follow up Nephrology Consultation: Assessment: Stable chronic chest pain Diabetic chronic Kidney Disease (E11.22) Hypertensive Chronic Kidney Disease (I12.0) End stage renal disease (N18.6) dependence on hemodialysis (Z99.2) (TTS) via AVF Anemia (D64.9), Hyperphosphatemia (E83.39), Secondary Hyperparathyroidism (E21.1 ), HTN (I12.0) CAD s/p CABG, diastolic CHF, pA flutter/fib, intra-cardiac thrombus, Heparin induced thrombocytopenia, hx of seizure, blindness Plan: dialysis tomorrow as per TTS schedule. Continue with Nephrovite 1 tab/day. PRBC as needed for anemia. last Hb 9, started on epogen with HD Continue with phos binders home dose Continue with calcitriol BP control with meds as ordered. Glycemic control, Dialysis consistent diet Further work up/management as per primary team Dose meds/antibiotics (if needed) for ESRD status. Avoid fleets enema/magnesium based laxatives. cardiology following Thanks for allowing me to participate in care of your patient. Will follow patient with you. Please call if any Qs Dr Eric Temple Office: [phone] Chief Complaint; chest pain HPI: Pt is a 37 y/o transgender M with hx of ESRD on hemodialysis (TTS) via permacath, chronic anemia, hyperphosphatemia, secondary hyperparathyroidism, Diabetes Mellitus, hypertension, CAD s/p CABG, diastolic CHF, pA flutter/fib, intra-cardiac thrombus, Heparin induced thrombocytopenia in past presented with complaints of acute on chronic chest pain. pt with frequent and multiple hospitalizations for same. c/o chronic chest pain and SOB which are better, denies palpitation Physical Examination: General Appearance: Comfortable, in no acute respiratory distress, co-operative . Vitals reviewed and noted as below Head; Atraumatic, normocephalic ENT: no ulcers no thrush. Tongue is midline. Oropharynx: no rash or ulcers. EYES: Pt is blind both eyes Neck; supple no lymphadenopathy, no thyromegaly or bruit Lungs: Normal respiratory rate/effort. Breath sounds bilateral equal clear Heart: Normal rate. s1s2 normal. No rub or gallop. Extremities: no edema. No varicose veins. has b/l BKA Neurological: Patient is alert, awake and oriented to person, place and time. No focal deficit. Strength bilateral appropriate and equal Skin: Warm and dry. Normal turgor. No rash. Palpitation: Normal elasticity for age Abdomen: Abdomen is soft. Bowel sounds +. There is no abdominal tenderness, no guarding/rigidity or organomegaly Psych: normal insight and normal affect/mood MSK: no joint tenderness or swelling. Digits and nails normal, no deformity : kidney or bladder not palpable Access: permacath Labs/imaging reviewed. Past medical history, past surgical history, family history, social history, allergy reviewed and noted as below Family Hx: no hx of CKD. Non contributory Objective - Vital Signs/Intake and Output Vital Signs (last 24 hours): Temp Pulse Resp BP Pulse Ox 98.8 F 71 20 122/79 100 09/11/17 07:00 09/11/17 07:00 09/11/17 07:00 09/11/17 09:35 09/11/17 07:00 Intake and Output: 09/11/17 09/11/17 06:59 18:59 Intake Total 120 Balance 120 - Medications Medications: Current Medications Albuterol/Ipratropium (Duoneb 3 Mg/0.5 Mg (3 Ml) Ud) 3 ml INH RQ4 [facility] Last Admin: 09/11/17 11:24 Dose: Not Given Amiodarone HCl (Cordarone) 200 mg PO DAILY [facility] Last Admin: 09/11/17 09:35 Dose: 200 mg Amlodipine Besylate (Norvasc) 10 mg PO DAILY [facility] Last Admin: 09/11/17 09:35 Dose: 10 mg Aspirin (Aspirin Chewable) 81 mg PO DAILY [facility] Last Admin: 09/11/17 09:23 Dose: 81 mg Calcitriol (Rocaltrol) 0.25 mcg PO TTS [facility] Last Admin: 09/10/17 14:58 Dose: 0.25 mcg Calcium Carbonate (Oscal) 500 mg PO BID [facility] Last Admin: 09/11/17 09:23 Dose: 500 mg Carvedilol (Coreg) 25 mg PO BID [facility] Last Admin: 09/11/17 09:35 Dose: 25 mg Clonidine HCl (Catapres-Tts3 0.3 Mg/24 Hr) 1 patch TD Q7D@1000 [facility] Docusate Sodium (Colace) 100 mg PO DAILY PRN PRN Reason: Constipation Last Admin: 09/09/17 09:26 Dose: 100 mg Epoetin Tom (Procrit) 4,000 unit IV TTS [facility] Last Admin: 09/10/17 12:55 Dose: 4,000 unit Heparin Sodium (Porcine) (Heparin) 5,000 units SC Q12 [facility] Last Admin: 09/11/17 09:26 Dose: 5,000 units Hydromorphone HCl (Dilaudid) 1 mg IVP Q4H PRN PRN Reason: Pain, severe (8-10) Last Admin: 09/11/17 08:30 Dose: 1 mg Insulin Glargine (Lantus) 18 unit SC [facility] Last Admin: 09/10/17 21:45 Dose: Not Given Insulin Human Regular (Novolin R) 0 unit SC ACHS [facility] PRN Reason: Protocol Last Admin: 09/11/17 08:30 Dose: 1 unit Isosorbide Mononitrate (Imdur) 60 mg PO DAILY [facility] Last Admin: 09/11/17 09:35 Dose: 60 mg Lactulose (Enulose) 30 gm PO DAILY [facility] Last Admin: 09/11/17 09:20 Dose: 30 gm Levetiracetam (Keppra) 500 mg PO BID [facility] Last Admin: 09/11/17 09:23 Dose: 500 mg Montelukast Sodium (Singulair) 10 mg PO [facility] Last Admin: 09/10/17 21:51 Dose: 10 mg Ondansetron HCl (Zofran Inj) 4 mg IVP Q8 PRN PRN Reason: Pain, severe (8-10) Last Admin: 09/10/17 19:10 Dose: 4 mg Pantoprazole Sodium (Protonix Ec Tab) 40 mg PO DAILY [facility] Last Admin: 09/11/17 09:21 Dose: 40 mg Rosuvastatin Calcium (Crestor) 10 mg PO [facility] Last Admin: 09/10/17 21:51 Dose: 10 mg Sertraline HCl (Zoloft) 50 mg PO DAILY [facility] Last Admin: 09/11/17 09:21 Dose: 50 mg Sevelamer Carbonate (Renvela) 800 mg PO TIDCC [facility] Last Admin: 09/11/17 08:33 Dose: 800 mg Sucralfate (Carafate Oral Susp) 1 gm PO QID [facility] Last Admin: 09/11/17 10:41 Dose: 1 gm Valproate Sodium (Depakene Oral Soln) 250 mg PO QID [facility] Last Admin: 09/11/17 09:20 Dose: 250 mg Vitamin B Complex/Vit C/Folic Acid (Nephro-Courtney) 1 tab PO 0800 [facility] Last Admin: 09/11/17 08:33 Dose: 1 tab - Labs Labs: 09/10/17 10:08 09/10/17 10:08 PT 12.9 SECONDS (9.7-12.2) H 09/08/17 10:07 INR 1.2 09/08/17 10:07 APTT 23 SECONDS (21-34) 09/08/17 10:07
[2017-09-11] MEDS ORDERED: guaiFENesin 200 mg/10 ml Syrup UD PO PRN (12:07)
[2017-09-11] MEDS: (Lantus) Insulin Glargine, Recombinant SC SCH (21:47)
--- NOTE | 2017-09-11 23:16 | CARD ---
APPROVED REPORT EKG Measurement Heart [id number] <Conclusion> Normal sinus rhythm Incomplete left bundle branch block ST & T wave abnormality, consider lateral ischemia Prolonged QT Abnormal ECG
--- NOTE | 2017-09-11 23:20 | CARD ---
APPROVED REPORT EKG Measurement Heart [id number] <Conclusion> Sinus bradycardia Left ventricular hypertrophy with QRS widening and repolarization abnormality Possible Inferior infarct, age undetermined Abnormal ECG
[2017-09-12] MEDS: Albuterol-Ipratrop 3 mg / 0.5 (3 ml) UD INH SCH ×5 (03:13→21:10)
[2017-09-12 07:31] LABS: BASO % 0.3 % (0.0-2.0); EOS # 0.4 K/uL (0.0-0.7); EOS % 4.3 % (0.0-4.0); HEMOGLOBIN 9.6 g/dL (12.0-18.0); LYMPH # 2.6 K/uL (1.0-4.3); LYMPH % 31.7 % (20.0-40.0); MEAN CELL VOLUME 91.5 fL (80.0-94.0); MEAN CORPUSCULAR HEMOGLOBIN 29.6 pg (27.0-31.0); MEAN CORPUSCULAR HGB CONC 32.3 g/dL (33.0-37.0); MONO # 0.6 K/uL (0.0-0.8); MONO % 6.8 % (0.0-10.0); NEUT # 4.7 K/uL (1.8-7.0); NEUT % 56.9 % (50.0-75.0); RBC 3.25 Mil/uL (4.40-5.90); RED CELL DISTRIBUTION WIDTH 19.2 % (11.5-14.5); WHITE BLOOD COUNT 8.3 K/uL (4.8-10.8)
[2017-09-12] MEDS: (Novolin R) Insulin Human Regular 100 units/ml vial SC SCH ×4 (08:31→22:15)
[2017-09-12] MEDS: Multivitamin Vitamin B Complex (Nephro-Vite) Tab PO SCH (08:32)
[2017-09-12] MEDS: Pantoprazole 40 mg EC Tab PO SCH (09:16)
[2017-09-12] MEDS: Valproic Acid 250 mg/5 ml UD Cup PO SCH ×4 (09:17→22:09)
[2017-09-12] MEDS: Sucralfate 1 gm/10 ml Oral Susp UD PO SCH ×4 (09:17→22:09)
[2017-09-12 12:08] VITALS: RESP 20
[2017-09-12] MEDS: EPOETIN ALFA 4,000 UNIT/ML ML Dialysis IV SCH (12:14)
--- NOTE | 2017-09-12 13:58 | CP.PCM.PN ---
Subjective - Date & Time of Evaluation Date of Evaluation: 09/12/17 Time of Evaluation: 13:57 - Subjective Subjective: Follow up Nephrology Consultation: Assessment: Stable chronic chest pain Diabetic chronic Kidney Disease (E11.22) Hypertensive Chronic Kidney Disease (I12.0) End stage renal disease (N18.6) dependence on hemodialysis (Z99.2) (TTS) via AVF Anemia (D64.9), Hyperphosphatemia (E83.39), Secondary Hyperparathyroidism (E21.1 ), HTN (I12.0) CAD s/p CABG, diastolic CHF, pA flutter/fib, intra-cardiac thrombus, Heparin induced thrombocytopenia, hx of seizure, blindness Plan: dialysis today as per TTS schedule. Continue with Nephrovite 1 tab/day. PRBC as needed for anemia. last Hb 9, started on epogen with HD Continue with phos binders home dose Continue with calcitriol BP control with meds as ordered. Glycemic control, Dialysis consistent diet Further work up/management as per primary team Dose meds/antibiotics (if needed) for ESRD status. Avoid fleets enema/magnesium based laxatives. cardiology following Thanks for allowing me to participate in care of your patient. Will follow patient with you. Please call if any Qs. d/w team Dr Eric Temple Office: [phone] Chief Complaint; chest pain HPI: Pt is a 37 y/o transgender M with hx of ESRD on hemodialysis (TTS) via permacath, chronic anemia, hyperphosphatemia, secondary hyperparathyroidism, Diabetes Mellitus, hypertension, CAD s/p CABG, diastolic CHF, pA flutter/fib, intra-cardiac thrombus, Heparin induced thrombocytopenia in past presented with complaints of acute on chronic chest pain. pt with frequent and multiple hospitalizations for same. c/o chronic chest pain, denies palpitation, c/o chronic shortness of breath. overall feels better Physical Examination: seen on HD General Appearance: Comfortable, in no acute respiratory distress, co-operative . Vitals reviewed and noted as below Head; Atraumatic, normocephalic ENT: no ulcers no thrush. Tongue is midline. Oropharynx: no rash or ulcers. EYES: Pt is blind both eyes Neck; supple no lymphadenopathy, no thyromegaly or bruit Lungs: Normal respiratory rate/effort. Breath sounds bilateral equal clear Heart: Normal rate. s1s2 normal. No rub or gallop. Extremities: no edema. No varicose veins. has b/l BKA Neurological: Patient is alert, awake and oriented to person, place and time. No focal deficit. Strength bilateral appropriate and equal Skin: Warm and dry. Normal turgor. No rash. Palpitation: Normal elasticity for age Abdomen: Abdomen is soft. Bowel sounds +. There is no abdominal tenderness, no guarding/rigidity or organomegaly Psych: normal insight and normal affect/mood MSK: no joint tenderness or swelling. Digits and nails normal, no deformity : kidney or bladder not palpable Access: permacath Labs/imaging reviewed. Past medical history, past surgical history, family history, social history, allergy reviewed and noted as below Family Hx: no hx of CKD. Non contributory Objective - Vital Signs/Intake and Output Vital Signs (last 24 hours): Temp Pulse Resp BP Pulse Ox 98.2 F 74 20 103/58 L 100 09/12/17 11:00 09/12/17 11:00 09/12/17 11:00 09/12/17 13:00 09/12/17 11:00 Intake and Output: 09/12/17 09/12/17 06:59 18:59 Intake Total 118 Balance 118 - Medications Medications: Current Medications Albuterol/Ipratropium (Duoneb 3 Mg/0.5 Mg (3 Ml) Ud) 3 ml INH RQ4 [facility] Last Admin: 09/12/17 11:28 Dose: Not Given Amiodarone HCl (Cordarone) 200 mg PO DAILY [facility] Last Admin: 09/12/17 12:07 Dose: Not Given Amlodipine Besylate (Norvasc) 10 mg PO DAILY [facility] Last Admin: 09/12/17 12:07 Dose: Not Given Aspirin (Aspirin Chewable) 81 mg PO DAILY [facility] Last Admin: 09/12/17 09:16 Dose: 81 mg Calcitriol (Rocaltrol) 0.25 mcg PO TTS [facility] Last Admin: 09/12/17 09:16 Dose: 0.25 mcg Calcium Carbonate (Oscal) 500 mg PO BID [facility] Last Admin: 09/12/17 09:16 Dose: 500 mg Carvedilol (Coreg) 25 mg PO BID [facility] Last Admin: 09/12/17 12:07 Dose: Not Given Clonidine HCl (Catapres-Tts3 0.3 Mg/24 Hr) 1 patch TD Q7D@1000 [facility] Docusate Sodium (Colace) 100 mg PO DAILY PRN PRN Reason: Constipation Last Admin: 09/09/17 09:26 Dose: 100 mg Epoetin Tom (Procrit) 4,000 unit IV TTS [facility] Last Admin: 09/12/17 12:14 Dose: 4,000 unit Guaifenesin (Robitussin) 200 mg PO Q4H PRN PRN Reason: Cough and congestion Heparin Sodium (Porcine) (Heparin) 5,000 units SC Q12 [facility] Hydromorphone HCl (Dilaudid) 1 mg IVP Q4H PRN PRN Reason: Pain, severe (8-10) Last Admin: 09/12/17 09:13 Dose: 1 mg Insulin Glargine (Lantus) 18 unit SC [facility] Last Admin: 09/11/17 21:47 Dose: Not Given Insulin Human Regular (Novolin R) 0 unit SC [facility] PRN Reason: Protocol Last Admin: 09/12/17 12:35 Dose: Not Given Isosorbide Mononitrate (Imdur) 60 mg PO DAILY [facility] Last Admin: 09/12/17 12:07 Dose: Not Given Lactulose (Enulose) 30 gm PO DAILY [facility] Last Admin: 09/12/17 09:28 Dose: Not Given Levetiracetam (Keppra) 500 mg PO BID [facility] Last Admin: 09/12/17 09:17 Dose: 500 mg Montelukast Sodium (Singulair) 10 mg PO [facility] Last Admin: 09/11/17 22:01 Dose: 10 mg Ondansetron HCl (Zofran Inj) 4 mg IVP Q8 PRN PRN Reason: Pain, severe (8-10) Last Admin: 09/12/17 09:14 Dose: 4 mg Pantoprazole Sodium (Protonix Ec Tab) 40 mg PO DAILY [facility] Last Admin: 09/12/17 09:16 Dose: 40 mg Rosuvastatin Calcium (Crestor) 10 mg PO [facility] Last Admin: 09/11/17 22:07 Dose: Not Given Sertraline HCl (Zoloft) 50 mg PO DAILY [facility] Last Admin: 09/12/17 09:17 Dose: 50 mg Sevelamer Carbonate (Renvela) 800 mg PO TIDCC [facility] Last Admin: 09/12/17 12:08 Dose: Not Given Sucralfate (Carafate Oral Susp) 1 gm PO QID [facility] Last Admin: 09/12/17 09:17 Dose: 1 gm Valproate Sodium (Depakene Oral Soln) 250 mg PO QID [facility] Last Admin: 09/12/17 09:17 Dose: 250 mg Vitamin B Complex/Vit C/Folic Acid (Nephro-Courtney) 1 tab PO 0800 [facility] Last Admin: 09/12/17 08:32 Dose: 1 tab - Labs Labs: 09/12/17 07:17 09/10/17 10:08 PT 12.9 SECONDS (9.7-12.2) H 09/08/17 10:07 INR 1.2 09/08/17 10:07 APTT 23 SECONDS (21-34) 09/08/17 10:07
--- NOTE | 2017-09-12 16:32 | CP.PCM.PN ---
Subjective - Date & Time of Evaluation Date of Evaluation: 09/12/17 Time of Evaluation: 16:00 - Subjective Subjective: Patient seen after HD awake, alert, ox3. denies any chest pain, sob, palpitations, abdominal pain, N/V s/p HD today Objective - Vital Signs/Intake and Output Vital Signs (last 24 hours): Temp Pulse Resp BP Pulse Ox 97.3 F L 84 20 131/81 100 09/12/17 14:15 09/12/17 15:13 09/12/17 14:15 09/12/17 15:13 09/12/17 14:15 Intake and Output: 09/12/17 09/12/17 06:59 18:59 Intake Total 118 480 Balance 118 480 - Medications Medications: Current Medications Albuterol/Ipratropium (Duoneb 3 Mg/0.5 Mg (3 Ml) Ud) 3 ml INH RQ4 [facility] Last Admin: 09/12/17 11:28 Dose: Not Given Amiodarone HCl (Cordarone) 200 mg PO DAILY [facility] Last Admin: 09/12/17 12:07 Dose: Not Given Amlodipine Besylate (Norvasc) 10 mg PO DAILY [facility] Last Admin: 09/12/17 12:07 Dose: Not Given Aspirin (Aspirin Chewable) 81 mg PO DAILY [facility] Last Admin: 09/12/17 09:16 Dose: 81 mg Calcitriol (Rocaltrol) 0.25 mcg PO TTS [facility] Last Admin: 09/12/17 09:16 Dose: 0.25 mcg Calcium Carbonate (Oscal) 500 mg PO BID [facility] Last Admin: 09/12/17 09:16 Dose: 500 mg Carvedilol (Coreg) 25 mg PO BID [facility] Last Admin: 09/12/17 12:07 Dose: Not Given Clonidine HCl (Catapres-Tts3 0.3 Mg/24 Hr) 1 patch TD Q7D@1000 [facility] Docusate Sodium (Colace) 100 mg PO DAILY PRN PRN Reason: Constipation Last Admin: 09/09/17 09:26 Dose: 100 mg Epoetin Tom (Procrit) 4,000 unit IV TTS [facility] Last Admin: 09/12/17 12:14 Dose: 4,000 unit Guaifenesin (Robitussin) 200 mg PO Q4H PRN PRN Reason: Cough and congestion Heparin Sodium (Porcine) (Heparin) 5,000 units SC Q12 [facility] Hydromorphone HCl (Dilaudid) 1 mg IVP Q4H PRN PRN Reason: Pain, severe (8-10) Last Admin: 09/12/17 14:00 Dose: 1 mg Insulin Glargine (Lantus) 18 unit SC [facility] Last Admin: 09/11/17 21:47 Dose: Not Given Insulin Human Regular (Novolin R) 0 unit SC [facility] PRN Reason: Protocol Last Admin: 09/12/17 12:35 Dose: Not Given Isosorbide Mononitrate (Imdur) 60 mg PO DAILY [facility] Last Admin: 09/12/17 12:07 Dose: Not Given Lactulose (Enulose) 30 gm PO DAILY [facility] Last Admin: 09/12/17 09:28 Dose: Not Given Levetiracetam (Keppra) 500 mg PO BID [facility] Last Admin: 09/12/17 09:17 Dose: 500 mg Montelukast Sodium (Singulair) 10 mg PO [facility] Last Admin: 09/11/17 22:01 Dose: 10 mg Ondansetron HCl (Zofran Inj) 4 mg IVP Q8 PRN PRN Reason: Pain, severe (8-10) Last Admin: 09/12/17 09:14 Dose: 4 mg Pantoprazole Sodium (Protonix Ec Tab) 40 mg PO DAILY [facility] Last Admin: 09/12/17 09:16 Dose: 40 mg Rosuvastatin Calcium (Crestor) 10 mg PO [facility] Last Admin: 09/11/17 22:07 Dose: Not Given Sertraline HCl (Zoloft) 50 mg PO DAILY [facility] Last Admin: 09/12/17 09:17 Dose: 50 mg Sevelamer Carbonate (Renvela) 800 mg PO TIDCC [facility] Last Admin: 09/12/17 12:08 Dose: Not Given Sucralfate (Carafate Oral Susp) 1 gm PO QID [facility] Last Admin: 09/12/17 14:45 Dose: 1 gm Valproate Sodium (Depakene Oral Soln) 250 mg PO QID [facility] Last Admin: 09/12/17 14:44 Dose: 250 mg Vitamin B Complex/Vit C/Folic Acid (Nephro-Courtney) 1 tab PO 0800 [facility] Last Admin: 09/12/17 08:32 Dose: 1 tab - Labs Labs: 09/12/17 07:17 09/10/17 10:08 PT 12.9 SECONDS (9.7-12.2) H 09/08/17 10:07 INR 1.2 09/08/17 10:07 APTT 23 SECONDS (21-34) 09/08/17 10:07 Assessment and Plan - Assessment and Plan (Free Text) Assessment: A/P 37 yr old admitted for chest pain/ sob seen by wildlife manager today s/p HD today D/W Dr. Li, can be discharged home today and continue HD as ordered Discharge plan discussed with patient and sister at bed side , who understands and agrees with plan CM arranged transportation
--- NOTE | 2017-09-12 17:08 | PCM.HF ---
Heart Failure Core Measure - Heart Failure Ejection Fraction: 40 % or Greater RAÚL Inhibitor Prescribed: No Contraindication/Reason for not providing: on ESRD Beta-Andrew Prescribed: Carvedilol Contraindication/Reason for not providing: on esrd AnticoagulationTherapy for Atrial Fibrillation/Atrialflutter: No Contraindication/Reason for not providing: hx of GI bleed Contraindication/Reason for not providing: esrd Hydralazine Nitrate Prescribed: Yes Implantable Cardioverter Defibrillator Therapy: No Contraindication/Reason for not providing: ef.50 Cardiac Resynchronization Therapy Prescribed: No Contraindication/Reason for not providing: nsr - Follow up Will be discharged to: Home Follow Up Date (must be within 7 days from discharge): 09/17/17 Follow Up Time: 09:00
--- NOTE | 2017-09-12 19:47 | CP.PCM.PN ---
Subjective - Date & Time of Evaluation Date of Evaluation: 09/12/17 Time of Evaluation: 19:44 - Subjective Subjective: c/o of stomack discomfort Objective - Vital Signs/Intake and Output Vital Signs (last 24 hours): Temp Pulse Resp BP Pulse Ox 98 F 74 20 107/67 99 09/12/17 15:49 09/12/17 15:49 09/12/17 15:49 09/12/17 15:49 09/12/17 15:49 Intake and Output: 09/12/17 09/13/17 18:59 06:59 Intake Total 480 Balance 480 - Medications Medications: Current Medications Albuterol/Ipratropium (Duoneb 3 Mg/0.5 Mg (3 Ml) Ud) 3 ml INH RQ4 [facility] Last Admin: 09/12/17 16:00 Dose: Not Given Amiodarone HCl (Cordarone) 200 mg PO DAILY [facility] Last Admin: 09/12/17 12:07 Dose: Not Given Amlodipine Besylate (Norvasc) 10 mg PO DAILY [facility] Last Admin: 09/12/17 12:07 Dose: Not Given Aspirin (Aspirin Chewable) 81 mg PO DAILY [facility] Last Admin: 09/12/17 09:16 Dose: 81 mg Calcitriol (Rocaltrol) 0.25 mcg PO TTS [facility] Last Admin: 09/12/17 09:16 Dose: 0.25 mcg Calcium Carbonate (Oscal) 500 mg PO BID [facility] Last Admin: 09/12/17 17:53 Dose: 500 mg Carvedilol (Coreg) 25 mg PO BID [facility] Last Admin: 09/12/17 12:07 Dose: Not Given Clonidine HCl (Catapres-Tts3 0.3 Mg/24 Hr) 1 patch TD Q7D@1000 [facility] Docusate Sodium (Colace) 100 mg PO DAILY PRN PRN Reason: Constipation Last Admin: 09/09/17 09:26 Dose: 100 mg Epoetin Tom (Procrit) 4,000 unit IV TTS [facility] Last Admin: 09/12/17 12:14 Dose: 4,000 unit Guaifenesin (Robitussin) 200 mg PO Q4H PRN PRN Reason: Cough and congestion Heparin Sodium (Porcine) (Heparin) 5,000 units SC Q12 [facility] Hydromorphone HCl (Dilaudid) 1 mg IVP Q4H PRN PRN Reason: Pain, severe (8-10) Last Admin: 09/12/17 17:59 Dose: 1 mg Insulin Glargine (Lantus) [address] [facility] Last Admin: 09/11/17 21:47 Dose: Not Given Insulin Human Regular (Novolin R) 0 unit SC [facility] PRN Reason: Protocol Last Admin: 09/12/17 17:56 Dose: Not Given Isosorbide Mononitrate (Imdur) 60 mg PO DAILY [facility] Last Admin: 09/12/17 12:07 Dose: Not Given Lactulose (Enulose) 30 gm PO DAILY [facility] Last Admin: 09/12/17 09:28 Dose: Not Given Levetiracetam (Keppra) 500 mg PO BID [facility] Last Admin: 09/12/17 17:53 Dose: 500 mg Montelukast Sodium (Singulair) [address] [facility] Last Admin: 09/11/17 22:01 Dose: 10 mg Ondansetron HCl (Zofran Inj) 4 mg IVP Q8 PRN PRN Reason: Pain, severe (8-10) Last Admin: 09/12/17 09:14 Dose: 4 mg Pantoprazole Sodium (Protonix Ec Tab) 40 mg PO DAILY [facility] Last Admin: 09/12/17 09:16 Dose: 40 mg Rosuvastatin Calcium (Crestor) [address] [facility] Last Admin: 09/11/17 22:07 Dose: Not Given Sertraline HCl (Zoloft) 50 mg PO DAILY [facility] Last Admin: 09/12/17 09:17 Dose: 50 mg Sevelamer Carbonate (Renvela) 800 mg PO TIDCC [facility] Last Admin: 09/12/17 17:53 Dose: 800 mg Sucralfate (Carafate Oral Susp) 1 gm PO QID [facility] Last Admin: 09/12/17 17:53 Dose: 1 gm Valproate Sodium (Depakene Oral Soln) 250 mg PO QID [facility] Last Admin: 09/12/17 17:53 Dose: 250 mg Vitamin B Complex/Vit C/Folic Acid (Nephro-Courtney) 1 tab PO 0800 [facility] Last Admin: 09/12/17 08:32 Dose: 1 tab - Labs Labs: 09/12/17 07:17 09/10/17 10:08 PT 12.9 SECONDS (9.7-12.2) H 09/08/17 10:07 INR 1.2 09/08/17 10:07 APTT 23 SECONDS (21-34) 09/08/17 10:07 - Constitutional Appears: Non-toxic - Eye Exam Eye Exam: Conjunctival injection - ENT Exam ENT Exam: Mucous Membranes Dry - Neck Exam Neck Exam: Full ROM - Respiratory Exam Respiratory Exam: NORMAL BREATHING PATTERN - Cardiovascular Exam Cardiovascular Exam: REGULAR RHYTHM - GI/Abdominal Exam GI & Abdominal Exam: Normal Bowel Sounds - Extremities Exam Extremities Exam: Normal Inspection Additional comments: bilaterl amputation - Neurological Exam Neurological Exam: Alert, Awake, Oriented x3 - Psychiatric Exam Psychiatric exam: Normal Mood - Skin Skin Exam: Pallor Assessment and Plan - Assessment and Plan (Free Text) Assessment: dm esrf chf htn stable will d./c home today
[2017-09-12] MEDS: (Lantus) Insulin Glargine, Recombinant SC SCH (22:14)
[2017-09-13 01:36] VITALS: BP 113/74; PULSE 80; TEMP 98.2; O2SAT 95
== END 2017-09-13 02:40 | disposition home or self-care (01) | DRG 121 ==
LOC: C.ER 06:31 → C.9E 11:13 → C.6T 16:23
PROVIDERS: ADMIT Internal Medicine; ATTEND Internal Medicine
PROC: 5A1D70Z Performance of Urinary Filtration, Intermittent, Less than 6 Hours Per Day (ICD-10-PCS; principal; 2017-09-10)
DX: I21.4 Non-ST elevation (NSTEMI) myocardial infarction (principal); I50.30 Unspecified diastolic (congestive) heart failure; I13.2 Hypertensive heart and chronic kidney disease with heart failure and with stage 5 chronic kidney disease, or end stage renal disease; E11.22 Type 2 diabetes mellitus with diabetic chronic kidney disease; D75.82 Heparin induced thrombocytopenia (HIT); E11.319 Type 2 diabetes mellitus with unspecified diabetic retinopathy without macular edema; E11.40 Type 2 diabetes mellitus with diabetic neuropathy, unspecified; I48.92 Unspecified atrial flutter; I48.0 Paroxysmal atrial fibrillation; G40.909 Epilepsy, unspecified, not intractable, without status epilepticus; F11.20 Opioid dependence, uncomplicated; N18.6 End stage renal disease; J44.9 Chronic obstructive pulmonary disease, unspecified; I37.0 Nonrheumatic pulmonary valve stenosis; D64.9 Anemia, unspecified; F41.9 Anxiety disorder, unspecified; I25.10 Atherosclerotic heart disease of native coronary artery without angina pectoris; Z99.2 Dependence on renal dialysis; Z79.4 Long term (current) use of insulin; E78.00 Pure hypercholesterolemia, unspecified; Z95.1 Presence of aortocoronary bypass graft; H54.8 Legal blindness, as defined in USA; Z89.512 Acquired absence of left leg below knee; Z89.511 Acquired absence of right leg below knee; F64.9 Gender identity disorder, unspecified; Z91.19 Patient's noncompliance with other medical treatment and regimen; E11.65 Type 2 diabetes mellitus with hyperglycemia; N25.81 Secondary hyperparathyroidism of renal origin; I51.3 Intracardiac thrombosis, not elsewhere classified

== ENCOUNTER 2017-09-14 13:45 | Inpatient (IN) | payer OTHER ==
[2017-09-14 13:47] VITALS: PULSE 66; BMI 18.8
[2017-09-14 15:09] LABS: BASO # 0.1 K/uL (0.0-0.2); BASO % 0.8 % (0.0-2.0); EOS # 0.4 K/uL (0.0-0.7); EOS % 3.7 % (0.0-4.0); HEMOGLOBIN 11.1 g/dL (12.0-18.0); LYMPH # 2.3 K/uL (1.0-4.3); LYMPH % 22.6 % (20.0-40.0); MEAN CELL VOLUME 89.6 fL (80.0-94.0); MEAN CORPUSCULAR HGB CONC 33.5 g/dL (33.0-37.0); MEAN PLATELET VOLUME 9.2 fL (7.2-11.7); MONO # 0.6 K/uL (0.0-0.8); MONO % 5.9 % (0.0-10.0); NEUT # 6.8 K/uL (1.8-7.0); RBC 3.69 Mil/uL (4.40-5.90); RED CELL DISTRIBUTION WIDTH 19.4 % (11.5-14.5); WHITE BLOOD COUNT 10.1 K/uL (4.8-10.8)
--- NOTE | 2017-09-14 15:13 | RAD ---
HISTORY: nausea/vomiting COMPARISON: Chest x-ray performed 09/08/17 TECHNIQUE: Chest, one view. FINDINGS: Right IJ approach dialysis catheter with distal tips at the expected location of the right atrium. LUNGS: Linear atelectasis, left lung base. Mild central vascular/ pulmonary venous congestion. Please note that chest x-ray has limited sensitivity for the detection of pulmonary masses. PLEURA: No significant pleural effusion identified. No definite pneumothorax . CARDIOVASCULAR: Median sternotomy wires with evidence of CABG. Borderline cardiomegaly. OSSEOUS STRUCTURES: Degenerative changes. Osseous demineralization. VISUALIZED UPPER ABDOMEN: Unremarkable. OTHER FINDINGS: None. IMPRESSION: Right IJ approach dialysis catheter with distal tips at the expected location of the right atrium. Median sternotomy wires with evidence of CABG. Borderline cardiomegaly. Mild central vascular/ pulmonary venous congestion.
[2017-09-14 15:35] LABS: PROTHROMBIN TIME 11.9 SECONDS (9.7-12.2)
[2017-09-14 16:09] LABS: ALB/GLOB RATIO 1.1 (1.0-2.1); ALBUMIN 4.1 g/dL (3.5-5.0); ALT/SGPT < 6 U/L (21-72); AST/SGOT 20 U/L (17-59); BLOOD UREA NITROGEN 48 mg/dL (9-20); CALCIUM 9.1 mg/dl (8.6-10.4); GFR AFRICAN-AMERICAN 15; GFR NON-AFRICAN AMERICAN 12; LIPASE 72 U/L (23-300)
[2017-09-14 16:19] LABS: CK-MB 2.43 ng/mL (0.0-3.38)
--- NOTE | 2017-09-14 17:39 | C.PDOC ---
History Of Present Illness Patient BIBA for evaluation of epigastric pain, multiple episodes of nausea/ vomiting with blood streaked vomit. Patient has h/o ESRD on HD, last dialysis was on (due today). Patient missed HD today. He denies chest pain, SOB, diarrhea, fever. Time Seen by Provider: 09/14/17 14:01 Chief Complaint (Nursing): GI Problem History Per: Patient, EMS History/Exam Limitations: no limitations Onset/Duration Of Symptoms: Hrs Current Symptoms Are (Timing): Better Severity: Moderate Location Of Pain/Discomfort: Epigastric Quality Of Discomfort: "Pain" Associated Symptoms: Nausea, Vomiting, Other (blood streaked vomiting ) Past Medical History Reviewed: Historical Data, Nursing Documentation, Vital Signs Vital Signs: Last Vital Signs Temp 97.6 F 09/19/17 15:27 Pulse 62 09/19/17 15:30 Resp 20 09/19/17 15:27 BP 101/44 L 09/19/17 18:04 Pulse Ox 100 09/19/17 15:27 - Medical History PMH: Alzheimer's Disease, Anemia, Anxiety, Arthritis, Asthma, Atrial Fibrillation, Bronchitis, CAD, Cardia Arrhythmia, CHF, COPD, CVA, Depression, Diabetes, Deep Vein Thrombosis, Gastritis, Gastrointestinal Ulcer, Gall Bladder Disease, HTN, Hypercholesterolemia, Hypothyroidism, Pneumonia, End Stage Renal Disease, Chronic Kidney Disease, Seizures Surgical History: CABG (12/2009), Cholecystectomy (2011), Coronary Stent - [facility] (09/16/17) ABDOMINAL WALL SINOGRAM (12/31/13) C.A.T. SCAN OF ABDOMEN (10/31/13) CENTRAL VENOUS CATHETER PLACEMENT WITH GUIDANCE (02/10/15) CHANGE OTHER DEVICE IN TRUNK SUBCU/FASCIA, FACILITY PRACTICE SPECIALIST APPROACH (06/01/17) DILATE R ANT TIB ART W DRUG-ELUT INTRALUM, PERC (08/12/15) DILATION OF LEFT FEMORAL ARTERY, PERCUTANEOUS APPROACH (07/04/16) DILATION OF RIGHT FEMORAL ARTERY, PERCUTANEOUS APPROACH (08/12/15) DILATION OF RIGHT POPLITEAL ARTERY, PERCUTANEOUS APPROACH (08/12/15) DX ULTRASOUND-HEART (01/05/13) ENTERAL INFUSION OF CONCENTRATED NUT. SUBSTANCES (06/28/13) EXCIS DEBRIDE OF WOUND, INFECT, OR BURN (08/03/14) EXCISION OF STOMACH, ENDO, DIAGN (03/03/17) EXTIRPATION OF MATTER FROM L FEM ART, PERC APPROACH (07/04/16) EXTIRPATION OF MATTER FROM R FEM ART, PERC APPROACH (08/12/15) EXTIRPATION OF MATTER FROM R POPL ART, PERC APPROACH (08/12/15) FLUOROSCOPY OF L LOW EXTREM ART USING L OSM CONTRAST (08/12/15) FLUOROSCOPY OF R LOW EXTREM ART USING L OSM CONTRAST (08/12/15) FLUOROSCOPY OF RIGHT JUGULAR VEINS, GUIDANCE (06/01/17) FREE SKIN GRAFT NEC (08/03/14) HEAD SOFT TISS X-RAY NEC (04/15/13) HEMODIALYSIS (04/28/15) INCIS W REM OF FORIEGN BODY OR DEV FROM SKIN & SUBCUT TISSUE (08/08/13) INSERT INFUSION DEV IN R INT JUGULAR VEIN, PERC (06/01/17) INSERTION OF INFUSION DEV INTO R SUBCLAV VEIN, PERC APPROACH (01/19/16) INSERTION OF INFUSION DEV INTO SUP VENA CAVA, PERC APPROACH (05/17/17) INSPECTION OF UPPER INTESTINAL TRACT, ENDO (03/03/17) INTRODUCE OF OTH THROMBOLYTIC INTO PERIPH ART, PERC APPROACH (08/12/15) LAPAROSCOPIC CHOLECYSTECTOMY (09/21/13) LOC EXC LES METATAR/TAR (06/01/14) PACKED CELL TRANSFUSION (06/01/14) PERCUTAN LIVER ASPIRAT (12/31/13) PERFORMANCE OF URINARY FILTRATION, MULTIPLE (05/17/17) PERFORMANCE OF URINARY FILTRATION, SINGLE (12/18/16) SKIN & SUBQ INCISION NEC (10/24/14) TETANUS TOXOID ADMINIST (06/13/14) TRANSFUSE NONAUT RED BLOOD CELLS IN PERIPH VEIN, PERC (04/09/17) ULTRASONOGRAPHY OF RIGHT AND LEFT HEART (04/09/17) ULTRASONOGRAPHY OF SUPERIOR VENA CAVA, GUIDANCE (02/20/17) VENOUS CATHETERIZATION FOR RENAL DIALYSIS (08/08/13) VENOUS CATHETERIZATION NEC (04/30/13) Family History: States: No Known Family Hx - Social History Hx Tobacco Use: No Hx Alcohol Use: No Hx Substance Use: No - Immunization History Hx Tetanus Toxoid Vaccination: No Hx Influenza Vaccination: No Hx Pneumococcal Vaccination: Yes Review Of Systems Except As Marked, All Systems Reviewed And Found Negative. Constitutional: Negative for: Fever, Chills Cardiovascular: Negative for: Chest Pain, Orthopnea Respiratory: Negative for: Shortness of Breath Gastrointestinal: Positive for: Nausea, Vomiting, Abdominal Pain, Hematemesis. Negative for: Diarrhea Skin: Negative for: Rash Neurological: Negative for: Weakness, Numbness Physical Exam - Physical Exam Appears: Well, Non-toxic, Chronically Ill Skin: Normal Color, Warm, Dry Oral Mucosa: Moist Chest: Other (port right upper chest, no erythema) Cardiovascular: Rhythm Regular, Other (dialysis catheter right chest) Respiratory: Normal Breath Sounds, No Rales, No Rhonchi, No Wheezing Gastrointestinal/Abdominal: Bowel Sounds, Soft, Tenderness (epigactric TTP, (-) McBurney's, (-) Mckenna's), No Guarding, No Rebound Back: Normal Inspection, No CVA Tenderness Extremity: Other (B/L BKAs) Neurological/Psych: Oriented x3 ED Course And Treatment - Laboratory Results Result Diagrams: 09/18/17 11:41 09/18/17 11:41 ECG: Interpreted By Me, Viewed By Me (NSR 83 bpm, left axis deviation, widened QRS, T wave inversions I, aVL, no acute ST changes) O2 Sat by Pulse Oximetry: 100 (RA) Pulse Ox Interpretation: Normal - Radiology CXR: Interpreted by Me, Viewed By Me (no infiltrates, dialysis catheter right chest, sternotomy wires, no effusions) Progress Note: Blood work, CXR, EKG ordered and reviewed. Patient given IV zofran, IV dilaudid, IV protonix. - Physician Consult Information Physician Contacted: Sybil Li Outcome Of Conversation: Discussed patient with PMD, agrees with admission for epigastric pain, hematesesis, ESRD on HD needing dialysis, hyperkalemia. Disposition - Disposition Disposition: HOSPITALIZED Disposition Time: 17:34 Condition: STABLE - Clinical Impression Clinical Impression: Hematemesis, Epigastric abdominal pain, ESRD (end stage renal disease) on dialysis, Hyperkalemia Decision To Admit - Pt Status Changed To: Hospital Disposition Of: Inpatient - Admit Certification Admit to Inpatient:: After my assessment, the patient will require hospitalization for at least two midnights. This is because of the severity of symptoms shown, intensity of services needed, and/or the medical risk in this patient being treated as an outpatient. - InPatient: Physician Admission Certification:: see notes - . Bed Request Type: Telemetry Admitting Physician: Sybil Li Patient Diagnosis: ESRD needing dialysis, Epigastric abdominal pain, Hematemesis, Hyperkalemia
[2017-09-14] MEDS: (Novolog) Insulin Aspart, Recombinant 100 u/ml 10 ml vial SC SCH (22:01)
[2017-09-15] MEDS: Albuterol-Ipratrop 3 mg / 0.5 (3 ml) UD IH SCH ×6 (00:46→19:34)
[2017-09-15] MEDS: (Novolog) Insulin Aspart, Recombinant 100 u/ml 10 ml vial SC SCH ×4 (08:24→21:56)
[2017-09-15 08:39] LABS: BASO % 0.5 % (0.0-2.0); EOS # 0.3 K/uL (0.0-0.7); EOS % 4.3 % (0.0-4.0); HEMOGLOBIN 9.5 g/dL (12.0-18.0); LYMPH # 2.5 K/uL (1.0-4.3); LYMPH % 35.6 % (20.0-40.0); MEAN CELL VOLUME 90.5 fL (80.0-94.0); MEAN CORPUSCULAR HEMOGLOBIN 30.2 pg (27.0-31.0); MEAN CORPUSCULAR HGB CONC 33.4 g/dL (33.0-37.0); MONO # 0.5 K/uL (0.0-0.8); MONO % 7.2 % (0.0-10.0); NEUT # 3.6 K/uL (1.8-7.0); NEUT % 52.4 % (50.0-75.0); RBC 3.16 Mil/uL (4.40-5.90); RED CELL DISTRIBUTION WIDTH 19.5 % (11.5-14.5); WHITE BLOOD COUNT 6.9 K/uL (4.8-10.8)
[2017-09-15 08:52] LABS: ALB/GLOB RATIO 1.2 (1.0-2.1); ALBUMIN 3.5 g/dL (3.5-5.0); CALCIUM 8.3 mg/dl (8.6-10.4)
--- NOTE | 2017-09-15 09:48 | CP.PCM.PN ---
Subjective - Date & Time of Evaluation Date of Evaluation: 09/15/17 Time of Evaluation: 09:44 - Subjective Subjective: pt feels beter less [place] no chest pain Objective - Vital Signs/Intake and Output Vital Signs (last 24 hours): Temp Pulse Resp BP Pulse Ox 97.6 F 51 L 18 153/69 H 97 09/15/17 07:35 09/15/17 07:35 09/15/17 07:35 09/15/17 07:35 09/15/17 07:35 Intake and Output: 09/15/17 09/15/17 06:59 18:59 Intake Total 460 Balance 460 - Medications Medications: Current Medications Albuterol/Ipratropium (Duoneb 3 Mg/0.5 Mg (3 Ml) Ud) 3 ml IH Q4 [facility] Last Admin: 09/15/17 09:03 Dose: 3 ml Amlodipine Besylate (Norvasc) 10 mg PO DAILY [facility] Last Admin: 09/14/17 21:19 Dose: 10 mg Aspirin (Aspirin Chewable) 81 mg PO DAILY [facility] Carvedilol (Coreg) 25 mg PO BID [facility] Last Admin: 09/14/17 21:19 Dose: 25 mg Clonidine HCl (Catapres) 0.2 mg PO Q8 [facility] Last Admin: 09/15/17 06:52 Dose: Not Given Docusate Sodium (Colace) 100 mg PO DAILY [facility] Hydromorphone HCl (Dilaudid) 1 mg IVP Q4H PRN PRN Reason: Pain, severe (8-10) Last Admin: 09/15/17 05:42 Dose: 1 mg Insulin Aspart (Novolog) 0 unit SC ACHS [facility] PRN Reason: Protocol Last Admin: 09/15/17 08:24 Dose: 2 unit Isosorbide Mononitrate (Imdur Er) 90 mg PO DAILY [facility] Ondansetron HCl (Zofran Inj) 4 mg IVP Q6 PRN PRN Reason: Nausea/Vomiting Last Admin: 09/14/17 21:19 Dose: 4 mg Pantoprazole Sodium (Protonix Ec Tab) 40 mg PO DAILY [facility] Ranolazine (Ranexa) 500 mg PO BID [facility] Rosuvastatin Calcium (Crestor) 10 mg PO HS [facility] Last Admin: 09/14/17 21:19 Dose: 10 mg Sertraline HCl (Zoloft) 50 mg PO DAILY [facility] - Labs Labs: 09/15/17 08:27 09/15/17 08:27 PT 11.9 SECONDS (9.7-12.2) 09/14/17 15:19 INR 1.0 09/14/17 15:19 APTT 29 SECONDS (21-34) 09/14/17 15:19 - Constitutional Appears: Non-toxic - Head Exam Head Exam: NORMAL INSPECTION - Eye Exam Eye Exam: Normal appearance Pupil Exam: NORMAL ACCOMODATION - ENT Exam ENT Exam: Mucous Membranes Moist - Neck Exam Neck Exam: Normal Inspection - Respiratory Exam Respiratory Exam: Clear to Ausculation Bilateral - Cardiovascular Exam Cardiovascular Exam: REGULAR RHYTHM - GI/Abdominal Exam GI & Abdominal Exam: Normal Bowel Sounds - Rectal Exam Rectal Exam: NORMAL INSPECTION - Exam Exam: NORMAL INSPECTION - Extremities Exam Extremities Exam: Normal Inspection - Back Exam Back Exam: NORMAL INSPECTION - Neurological Exam Neurological Exam: Alert, Normal Gait, Oriented x3 - Psychiatric Exam Psychiatric exam: Normal Affect - Skin Skin Exam: Normal Color Assessment and Plan - Assessment and Plan (Free Text) Assessment: old infarction [place] djdd cervical spine slight weekeness left side Plan: d/c home cont med and pt
--- NOTE | 2017-09-15 10:09 | CP.PCM.HP ---
History of Present Illness - History of Present Illness History of Present Illness: PT CAME IN FOR ACUTE ABD PAIN AND VOMITING Present on Admission - Present on Admission Any Indicators Present on Admission: Yes Review of Systems - Review of Systems Systems not reviewed;Unavailable: Acuity of Condition - Constitutional Constitutional: As Per HPI - EENT Eyes: Loss of Vision Ears: As Per HPI Nose/Mouth/Throat: As Per HPI - Cardiovascular Cardiovascular: Chest Pain at Rest - Respiratory Respiratory: Cough - Gastrointestinal Gastrointestinal: Abdominal Pain, Bloating - Genitourinary Genitourinary: As Per HPI - Musculoskeletal Musculoskeletal: Back Pain - Integumentary Integumentary: As Per HPI - Neurological Neurological: Numbness - Psychiatric Psychiatric: Depression - Endocrine Additional Comments: DIBETIC - Hematologic/Lymphatic Additional comments: ANEAMIA Past Patient History - Infectious Disease Hx of Infectious Diseases: None - Tetanus Immunizations Tetanus Immunization: >10 years Ago - Past Medical History & Family History Past Medical History?: Yes - Past Social History Smoking Status: Never Smoked - CARDIAC Hx Cardiac Disorders: Yes Hx Atrial Fibrillation: Yes Hx Cardia Arrhythmia: Yes Hx Congestive Heart Failure: Yes Hx Hypercholesterolemia: Yes Hx Hypertension: Yes - PULMONARY Hx Respiratory Disorders: Yes Hx Asthma: Yes Hx Bronchitis: Yes Hx Chronic Obstructive Pulmonary Disease (COPD): Yes Hx Pneumonia: Yes - NEUROLOGICAL Hx Neurological Disorder: Yes Hx Alzheimer's Disease: Yes Hx Seizures: Yes - HEENT Hx HEENT Problems: Yes Hx Blind: Yes (legally blind) Hx Cataracts: Yes - RENAL Hx Chronic Kidney Disease: Yes - ENDOCRINE/METABOLIC Hx Hypothyroidism: Yes - HEMATOLOGICAL/ONCOLOGICAL Hx Blood Disorders: Yes Hx Anemia: Yes - INTEGUMENTARY Hx Dermatological Problems: No - MUSCULOSKELETAL/RHEUMATOLOGICAL Hx Falls: No - GASTROINTESTINAL Hx Gastrointestinal Disorders: Yes Hx Gall Bladder Disease: Yes Hx Gastritis: Yes - GENITOURINARY/GYNECOLOGICAL Hx Genitourinary Disorders: No Hx Sexually Transmitted Disorders: No - PSYCHIATRIC Hx Substance Use: No - SURGICAL HISTORY Hx Surgeries: Yes Hx Cholecystectomy: Yes (2011) 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/2009) Hx Coronary Stent: Yes - ANESTHESIA Hx Anesthesia: Yes Hx Anesthesia Reactions: No Hx Malignant Hyperthermia: No Meds Allergies/Adverse Reactions: Allergies Allergy/AdvReac Type Severity Reaction Status Date / Time acetaminophen [From Percocet] Allergy RASH Verified 09/08/17 06:47 atenolol Allergy RASH Verified 09/08/17 06:47 digoxin Allergy RASH Verified 09/08/17 06:47 milk Allergy ITCHING Verified 09/08/17 06:47 morphine Allergy RASH Verified 09/08/17 06:47 oxycodone HCl [From Percocet] Allergy RASH Verified 09/08/17 06:47 Physical Exam - Constitutional Appears: In Acute Distress - Head Exam Head Exam: ATRAUMATIC - Eye Exam Eye Exam: Conjunctival injection - ENT Exam ENT Exam: Mucous Membranes Dry - Neck Exam Neck exam: Positive for: Full Rom - Respiratory Exam Respiratory Exam: Decreased Breath Sounds - Cardiovascular Exam Cardiovascular Exam: REGULAR RHYTHM - GI/Abdominal Exam GI & Abdominal Exam: Normal Bowel Sounds, Tenderness - Rectal Exam Rectal Exam: NORMAL INSPECTION - Extremities Exam Additional comments: BILATERAL AMPUTATION - Back Exam Back exam: NORMAL INSPECTION - Neurological Exam Neurological exam: Oriented x3 - Psychiatric Exam Psychiatric exam: Normal Affect - Skin Skin Exam: Pallor Results - Vital Signs Recent Vital Signs: Last Vital Signs Temp 97.6 F 09/15/17 07:35 Pulse 51 L 09/15/17 07:35 Resp 18 09/15/17 07:35 BP 153/69 H 09/15/17 07:35 Pulse Ox 97 09/15/17 07:35 - Labs Result Diagrams: 09/15/17 08:27 09/15/17 08:27 Labs: Laboratory Results - last 24 hr 09/14/17 09/14/17 09/14/17 15:06 15:19 15:53 WBC 10.1 RBC 3.69 L Hgb 11.1 L Hct 33.1 L MCV 89.6 MCH 30.0 MCHC 33.5 RDW 19.4 H Plt Count 175 MPV 9.2 Neut % (Auto) 67.0 Lymph % (Auto) 22.6 [place] % (Auto) 5.9 Eos % (Auto) 3.7 Baso % (Auto) 0.8 Neut # 6.8 Lymph # 2.3 [place] # 0.6 Eos # 0.4 Baso # 0.1 PT 11.9 INR 1.0 APTT 29 Sodium 135 Potassium 5.3 H Chloride 98 Carbon Dioxide 24 Anion Gap 18 BUN 48 H Creatinine 5.3 H Est GFR ( Amer) 15 Est GFR (Non-Af Amer) 12 POC Glucose (mg/dL) Random Glucose 188 H Calcium 9.1 Total Bilirubin 0.5 AST 20 ALT < 6 L D Alkaline Phosphatase 210 H D Total Creatine Kinase 25 L CK-MB (Mass) 2.43 Troponin I 0.0720 Total Protein 7.7 Albumin 4.1 Globulin 3.6 Albumin/Globulin Ratio 1.1 Lipase 72 09/14/17 09/15/17 09/15/17 21:06 06:42 08:27 WBC 6.9 RBC 3.16 L Hgb 9.5 L Hct 28.6 L MCV 90.5 MCH 30.2 MCHC 33.4 RDW 19.5 H Plt Count 157 MPV 9.0 Neut % (Auto) 52.4 Lymph % (Auto) 35.6 [place] % (Auto) 7.2 Eos % (Auto) 4.3 H Baso % (Auto) 0.5 Neut # 3.6 Lymph # 2.5 [place] # 0.5 Eos # 0.3 Baso # 0.0 PT INR APTT Sodium Potassium Chloride Carbon Dioxide Anion Gap BUN Creatinine Est GFR ( Amer) Est GFR (Non-Af Amer) POC Glucose (mg/dL) 191 H 195 H Random Glucose Calcium Total Bilirubin AST ALT Alkaline Phosphatase Total Creatine Kinase CK-MB (Mass) Troponin I Total Protein Albumin Globulin Albumin/Globulin Ratio Lipase 09/15/17 08:27 WBC RBC Hgb Hct MCV MCH MCHC RDW Plt Count MPV Neut % (Auto) Lymph % (Auto) [place] % (Auto) Eos % (Auto) Baso % (Auto) Neut # Lymph # [place] # Eos # Baso # PT INR APTT Sodium 132 Potassium 4.5 Chloride 94 L Carbon Dioxide 27 Anion Gap 15 BUN 55 H Creatinine 6.6 H Est GFR ( Amer) 12 Est GFR (Non-Af Amer) 10 POC Glucose (mg/dL) Random Glucose 229 H Calcium 8.3 L Total Bilirubin 0.4 AST 18 ALT 15 L D Alkaline Phosphatase 151 H D Total Creatine Kinase CK-MB (Mass) Troponin I Total Protein 6.5 Albumin 3.5 Globulin 3.0 Albumin/Globulin Ratio 1.2 Lipase Assessment & Plan - Assessment and Plan (Free Text) Assessment: AC ABD PAIN GASTRITIS DMID ESRF HTN Plan: FULL IQUID DIET GI CONSULTATION AND PER ORDERS AND DIALYSIS - Date & Time Date: 09/15/17 Time: 10:14
[2017-09-15] MEDS: Ranolazine 500 mg Extended Release Tablets PO SCH ×2 (10:12→17:32)
[2017-09-15] MEDS: Pantoprazole 40 mg EC Tab PO SCH (10:13)
--- NOTE | 2017-09-15 17:44 | CP.PCM.CON ---
History of Present Illness - History of Present Illness History of Present Illness: renal consult note 37 yr old with htn, dm. kleinfelter syndrome, htn., esrd on hd tts admitted with chest pain and vomiting. missed hd on saturday Review of Systems - Review of Systems All systems: reviewed and no additional remarkable complaints except Past Patient History - Infectious Disease Hx of Infectious Diseases: None - Tetanus Immunizations Tetanus Immunization: >10 years Ago - Past Medical History & Family History Past Medical History?: Yes - Past Social History Smoking Status: Never Smoked - CARDIAC Hx Cardiac Disorders: Yes Hx Atrial Fibrillation: Yes Hx Cardia Arrhythmia: Yes Hx Congestive Heart Failure: Yes Hx Hypercholesterolemia: Yes Hx Hypertension: Yes - PULMONARY Hx Respiratory Disorders: Yes Hx Asthma: Yes Hx Bronchitis: Yes Hx Chronic Obstructive Pulmonary Disease (COPD): Yes Hx Pneumonia: Yes - NEUROLOGICAL Hx Neurological Disorder: Yes Hx Alzheimer's Disease: Yes Hx Seizures: Yes - HEENT Hx HEENT Problems: Yes Hx Blind: Yes (legally blind) Hx Cataracts: Yes - RENAL Hx Chronic Kidney Disease: Yes - ENDOCRINE/METABOLIC Hx Hypothyroidism: Yes - HEMATOLOGICAL/ONCOLOGICAL Hx Blood Disorders: Yes Hx Anemia: Yes - INTEGUMENTARY Hx Dermatological Problems: No - MUSCULOSKELETAL/RHEUMATOLOGICAL Hx Falls: No - GASTROINTESTINAL Hx Gastrointestinal Disorders: Yes Hx Gall Bladder Disease: Yes Hx Gastritis: Yes - GENITOURINARY/GYNECOLOGICAL Hx Genitourinary Disorders: No Hx Sexually Transmitted Disorders: No - PSYCHIATRIC Hx Substance Use: No - SURGICAL HISTORY Hx Surgeries: Yes Hx Cholecystectomy: Yes (2011) 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/2009) Hx Coronary Stent: Yes - ANESTHESIA Hx Anesthesia: Yes Hx Anesthesia Reactions: No Hx Malignant Hyperthermia: No Meds Allergies/Adverse Reactions: Allergies Allergy/AdvReac Type Severity Reaction Status Date / Time acetaminophen [From Percocet] Allergy RASH Verified 09/08/17 06:47 atenolol Allergy RASH Verified 09/08/17 06:47 digoxin Allergy RASH Verified 09/08/17 06:47 milk Allergy ITCHING Verified 09/08/17 06:47 morphine Allergy RASH Verified 09/08/17 06:47 oxycodone HCl [From Percocet] Allergy RASH Verified 09/08/17 06:47 - Medications Medications: Current Medications Albuterol/Ipratropium (Duoneb 3 Mg/0.5 Mg (3 Ml) Ud) 3 ml IH Q4 [facility] Last Admin: 09/15/17 12:55 Dose: Not Given Amlodipine Besylate (Norvasc) 10 mg PO DAILY [facility] Last Admin: 09/15/17 10:14 Dose: 10 mg Aspirin (Aspirin Chewable) 81 mg PO DAILY [facility] Last Admin: 09/15/17 10:14 Dose: 81 mg Carvedilol (Coreg) 25 mg PO BID [facility] Last Admin: 09/15/17 10:12 Dose: 25 mg Clonidine HCl (Catapres) 0.2 mg PO Q8 [facility] Last Admin: 09/15/17 15:00 Dose: 0.2 mg Docusate Sodium (Colace) 100 mg PO DAILY [facility] Last Admin: 09/15/17 10:14 Dose: 100 mg Hydromorphone HCl (Dilaudid) 1 mg IVP Q4H PRN PRN Reason: Pain, severe (8-10) Last Admin: 09/15/17 14:38 Dose: 1 mg Insulin Aspart (Novolog) 0 unit SC ACHS [facility] PRN Reason: Protocol Last Admin: 09/15/17 17:30 Dose: 2 unit Isosorbide Mononitrate (Imdur Er) 90 mg PO DAILY [facility] Last Admin: 09/15/17 10:11 Dose: 90 mg Ondansetron HCl (Zofran Inj) 4 mg IVP Q6 PRN PRN Reason: Nausea/Vomiting Last Admin: 09/14/17 21:19 Dose: 4 mg Pantoprazole Sodium (Protonix Ec Tab) 40 mg PO DAILY [facility] Last Admin: 09/15/17 10:13 Dose: 40 mg Ranolazine (Ranexa) 500 mg PO BID [facility] Last Admin: 09/15/17 17:32 Dose: 500 mg Rosuvastatin Calcium (Crestor) 10 mg PO HS [facility] Last Admin: 09/14/17 21:19 Dose: 10 mg Sertraline HCl (Zoloft) 50 mg PO DAILY [facility] Last Admin: 09/15/17 10:14 Dose: 50 mg Physical Exam - Constitutional Appears: Non-toxic, No Acute Distress - Head Exam Head Exam: NORMAL INSPECTION - Eye Exam Eye Exam: Normal appearance - ENT Exam ENT Exam: Mucous Membranes Moist - Neck Exam Neck exam: Positive for: Normal Inspection - Respiratory Exam Respiratory Exam: NORMAL BREATHING PATTERN - Cardiovascular Exam Cardiovascular Exam: +S1, +S2 - GI/Abdominal Exam GI & Abdominal Exam: Soft - Extremities Exam Extremities exam: Positive for: pedal pulses present - Neurological Exam Neurological exam: Alert, Oriented x3 Results - Vital Signs Recent Vital Signs: Last Vital Signs Temp 97.6 F 09/15/17 07:35 Pulse 63 09/15/17 16:00 Resp 18 09/15/17 15:26 BP 116/63 09/15/17 15:26 Pulse Ox 96 09/15/17 15:26 - Labs Result Diagrams: 09/15/17 08:27 09/15/17 08:27 Labs: Laboratory Results - last 24 hr 09/14/17 09/15/17 09/15/17 21:06 06:42 08:27 WBC 6.9 RBC 3.16 L Hgb 9.5 L Hct 28.6 L MCV 90.5 MCH 30.2 MCHC 33.4 RDW 19.5 H Plt Count 157 MPV 9.0 Neut % (Auto) 52.4 Lymph % (Auto) 35.6 [place] % (Auto) 7.2 Eos % (Auto) 4.3 H Baso % (Auto) 0.5 Neut # 3.6 Lymph # 2.5 [place] # 0.5 Eos # 0.3 Baso # 0.0 Sodium Potassium Chloride Carbon Dioxide Anion Gap BUN Creatinine Est GFR ( Amer) Est GFR (Non-Af Amer) POC Glucose (mg/dL) 191 H 195 H Random Glucose Calcium Ferritin Total Bilirubin AST ALT Alkaline Phosphatase Total Protein Albumin Globulin Albumin/Globulin Ratio 09/15/17 09/15/17 09/15/17 08:27 11:10 16:36 WBC RBC Hgb Hct MCV MCH MCHC RDW Plt Count MPV Neut % (Auto) Lymph % (Auto) [place] % (Auto) Eos % (Auto) Baso % (Auto) Neut # Lymph # [place] # Eos # Baso # Sodium 132 Potassium 4.5 Chloride 94 L Carbon Dioxide 27 Anion Gap 15 BUN 55 H Creatinine 6.6 H Est GFR ( Amer) 12 Est GFR (Non-Af Amer) 10 POC Glucose (mg/dL) 90 196 H Random Glucose 229 H Calcium 8.3 L Ferritin 774.0 Total Bilirubin 0.4 AST 18 ALT 15 L D Alkaline Phosphatase 151 H D Total Protein 6.5 Albumin 3.5 Globulin 3.0 Albumin/Globulin Ratio 1.2 Assessment & Plan - Assessment and Plan (Free Text) Plan: ESRD/HTN/DM/CAD/vomiting/anemia hd tts, no acute indication to do today. will do on saturday cara reviewed anemia epo with hd bp continue current meds continue binders, check phos levels
[2017-09-16] MEDS: Albuterol-Ipratrop 3 mg / 0.5 (3 ml) UD IH SCH ×6 (01:55→23:30)
--- NOTE | 2017-09-16 06:09 | CP.PCM.PCO ---
Subjective - Physician Review Subjective (Free Text): 09/16/17 06:08 House Doc called for 3 beats VTACH, 6 beats VTACH that occurred early this morning. Patient is asymptomatic. STONE and EKG ordered. Discussed with nurse to contact primary attending - to discuss Cardiology consult.
[2017-09-16] MEDS: (Novolog) Insulin Aspart, Recombinant 100 u/ml 10 ml vial SC SCH ×4 (07:55→21:49)
--- NOTE | 2017-09-16 08:01 | CON ---
DATE: 09/15/2017 I was called for GI consultation by the admitting medical team. The patient is seen and fully examined on 09/15/2017. The entire chart is reviewed including, but not limited to the most recent lab and radiology study results, current and the previous medication list, current and the previous medical events, allergy to medication list, as well as all the available current and previous medical records. Case was discussed with the staff at length as well as Dr. Li this morning. HISTORY OF PRESENT ILLNESS: This is a 37-year-old male, very well known case for me from previous admissions years ago, who was admitted to the hospital due to recurrent episode of nausea and vomiting with trace of fresh blood in his vomit as he was told. Complaining of severe crampy abdominal pain, generalized weakness and malaise, off his hemodialysis recently but not chest pain, significant complaint of palpitation, shortness of breath, chills or fever. PAST MEDICAL HISTORY: Complicated including mainly diabetes mellitus; end-stage renal disease, on hemodialysis; peptic ulcer disease; peripheral vascular disease; bilateral [id number] amputation; reported cardiac arrhythmias with depression and reported deep vein thrombosis with peptic ulcer disease as well as hypertension. PAST SURGICAL HISTORY: Status post CABG as reported, status post cholecystectomy, status post cardiac stent insertion. CURRENT MEDICATIONS: Medication list was reviewed. ALLERGY TO MEDICATION: UNCLEAR. FAMILY HISTORY: Positive for mainly diabetes mellitus and hypertension. SOCIAL HISTORY: Denied any recent history of cigarette smoking or alcohol intake. After being admitted to the hospital, the patient's initial hemoglobin was 11.1 with hematocrit 33.1 with subsequent drop of hemoglobin today to about 9.3 with initial blood glucose level of 188 and increased BUN 48, creatinine 5.3 due to his renal failure. Potassium was elevated to 5.3. PHYSICAL EXAMINATION GENERAL: A 37-year-old male, legally blind. VITAL SIGNS: Afebrile with pulse of 86, respiratory rate 20 to 22, blood pressure of 180/96. HEENT: Showed pale, dry oral mucoid membrane. Nonicteric sclerae. LUNGS: Few scattered crepitation with decreased air entry at bases. LYMPH NODES: No lymphadenitis or lymphadenopathy. HEART: Positive S1 and S2. ABDOMEN: Soft with generalized tenderness. No mass or organomegaly. No rebound tenderness or guarding. EXTREMITIES: Showed evidence of bilateral [id number] amputation. NEUROLOGIC: No new neurological deficits, sensory or motor. IMPRESSION: 1. Hematemesis. 2. To rule out gastric versus duodenal ulcer. 3. Multiple past medical history as mentioned above. 4. Anemia that could be secondary to chronic disease versus upper gastrointestinal blood loss. 5. To rule out acute pancreatitis. SUGGESTION: 1. I agree with your plan. 2. Repeat serum lipase and amylase level. 3. Abdominal ultrasound. 4. Reglan IV. 5. Proton pump inhibitors. 6. If there is significant further drop in hemoglobin and hematocrit, then upper endoscopy to be scheduled. Case discussed at length with Dr. Li. Thank you for letting me to participate in your patient's case management. Tamiko Conde MD
[2017-09-16 08:23] LABS: CK-MB 1.08 ng/mL (0.0-3.38)
[2017-09-16] MEDS: Ranolazine 500 mg Extended Release Tablets PO SCH ×2 (10:23→18:48)
[2017-09-16] MEDS: Pantoprazole 40 mg EC Tab PO SCH (10:24)
--- NOTE | 2017-09-16 14:53 | CARD ---
APPROVED REPORT EKG Measurement Heart [id number] <Conclusion> Normal sinus rhythm Left ventricular hypertrophy with QRS widening and repolarization abnormality ST & T wave abnormality, consider lateral ischemia Abnormal ECG
--- NOTE | 2017-09-16 15:07 | CP.PCM.PN ---
Subjective - Date & Time of Evaluation Date of Evaluation: 09/16/17 Time of Evaluation: 15:06 - Subjective Subjective: renal note Pt plan for dialysis tomorrow epogen with HD nephrovite 1 tab/day BP control Objective - Vital Signs/Intake and Output Vital Signs (last 24 hours): Temp Pulse Resp BP Pulse Ox 97.6 F 72 20 149/85 100 09/15/17 23:00 09/16/17 05:50 09/15/17 23:00 09/16/17 10:34 09/15/17 23:00 Intake and Output: 09/16/17 09/16/17 06:59 18:59 Intake Total 0 Output Total 50 Balance -50 - Medications Medications: Current Medications Albuterol/Ipratropium (Duoneb 3 Mg/0.5 Mg (3 Ml) Ud) 3 ml IH Q4 [facility] Last Admin: 09/16/17 07:49 Dose: 3 ml Amlodipine Besylate (Norvasc) 10 mg PO DAILY [facility] Last Admin: 09/15/17 10:14 Dose: 10 mg Aspirin (Aspirin Chewable) 81 mg PO DAILY [facility] Last Admin: 09/16/17 10:24 Dose: 81 mg Carvedilol (Coreg) 25 mg PO BID [facility] Last Admin: 09/16/17 10:34 Dose: 25 mg Clonidine HCl (Catapres) 0.2 mg PO Q8 [facility] Last Admin: 09/16/17 14:14 Dose: 0.2 mg Docusate Sodium (Colace) 100 mg PO DAILY [facility] Last Admin: 09/16/17 10:25 Dose: Not Given Epoetin Tom (Procrit) 4,000 unit IV TTS [facility] Hydromorphone HCl (Dilaudid) 1 mg IVP Q4H PRN PRN Reason: Pain, severe (8-10) Last Admin: 09/16/17 12:25 Dose: 1 mg Insulin Aspart (Novolog) 0 unit SC ACHS [facility] PRN Reason: Protocol Last Admin: 09/16/17 12:35 Dose: 2 unit Isosorbide Mononitrate (Imdur Er) 90 mg PO DAILY [facility] Last Admin: 09/15/17 10:11 Dose: 90 mg Ondansetron HCl (Zofran Inj) 4 mg IVP Q6 PRN PRN Reason: Nausea/Vomiting Last Admin: 09/14/17 21:19 Dose: 4 mg Pantoprazole Sodium (Protonix Ec Tab) 40 mg PO DAILY [facility] Last Admin: 09/16/17 10:24 Dose: 40 mg Ranolazine (Ranexa) 500 mg PO BID [facility] Last Admin: 09/16/17 10:23 Dose: 500 mg Rosuvastatin Calcium (Crestor) 10 mg PO HS [facility] Last Admin: 09/15/17 21:50 Dose: 10 mg Sertraline HCl (Zoloft) 50 mg PO DAILY [facility] Last Admin: 09/16/17 10:33 Dose: 50 mg Vitamin B Complex/Vit C/Folic Acid (Nephro-Courtney) 1 tab PO 0800 [facility] - Labs Labs: 09/15/17 08:27 09/15/17 08:27 PT 11.9 SECONDS (9.7-12.2) 09/14/17 15:19 INR 1.0 09/14/17 15:19 APTT 29 SECONDS (21-34) 09/14/17 15:19
[2017-09-16] MEDS ORDERED: Dextrose 50% SYRINGE Inj (50 ml) IV PRN (16:49)
--- NOTE | 2017-09-16 17:51 | CP.PCM.PN ---
Subjective - Date & Time of Evaluation Date of Evaluation: 09/10/17 Time of Evaluation: 17:49 - Subjective Subjective: vomiting today had vt chest pain Objective - Vital Signs/Intake and Output Vital Signs (last 24 hours): Temp Pulse Resp BP Pulse Ox 97.9 F 68 18 146/67 100 09/16/17 15:45 09/16/17 15:45 09/16/17 15:45 09/16/17 15:45 09/16/17 15:45 Intake and Output: 09/16/17 09/16/17 06:59 18:59 Intake Total 0 Output Total 50 Balance -50 - Medications Medications: Current Medications Albuterol/Ipratropium (Duoneb 3 Mg/0.5 Mg (3 Ml) Ud) 3 ml IH Q4 [facility] Last Admin: 09/16/17 16:17 Dose: Not Given Amlodipine Besylate (Norvasc) 10 mg PO DAILY [facility] Last Admin: 09/16/17 10:38 Dose: 10 mg Aspirin (Aspirin Chewable) 81 mg PO DAILY [facility] Last Admin: 09/16/17 10:24 Dose: 81 mg Carvedilol (Coreg) 25 mg PO BID [facility] Last Admin: 09/16/17 10:34 Dose: 25 mg Clonidine HCl (Catapres) 0.2 mg PO Q8 [facility] Last Admin: 09/16/17 14:14 Dose: 0.2 mg Dextrose (Dextrose 50% Inj) 25 ml IV Q8 PRN PRN Reason: Hypoglycemia Docusate Sodium (Colace) 100 mg PO DAILY [facility] Last Admin: 09/16/17 10:25 Dose: Not Given Epoetin Tom (Procrit) 4,000 unit IV TTS [facility] Hydromorphone HCl (Dilaudid) 1 mg IVP Q4H PRN PRN Reason: Pain, severe (8-10) Last Admin: 09/16/17 16:39 Dose: 1 mg Insulin Aspart (Novolog) 0 unit SC ACHS [facility] PRN Reason: Protocol Last Admin: 09/16/17 16:40 Dose: Not Given Isosorbide Mononitrate (Imdur Er) 90 mg PO DAILY [facility] Last Admin: 09/15/17 10:11 Dose: 90 mg Ondansetron HCl (Zofran Inj) 4 mg IVP Q6 PRN PRN Reason: Nausea/Vomiting Last Admin: 09/16/17 15:45 Dose: 4 mg Pantoprazole Sodium (Protonix Ec Tab) 40 mg PO DAILY [facility] Last Admin: 09/16/17 10:24 Dose: 40 mg Ranolazine (Ranexa) 500 mg PO BID [facility] Last Admin: 09/16/17 10:23 Dose: 500 mg Rosuvastatin Calcium (Crestor) 10 mg PO HS [facility] Last Admin: 09/15/17 21:50 Dose: 10 mg Sertraline HCl (Zoloft) 50 mg PO DAILY [facility] Last Admin: 09/16/17 10:33 Dose: 50 mg Vitamin B Complex/Vit C/Folic Acid (Nephro-Courtney) 1 tab PO 0800 [facility] - Labs Labs: 09/15/17 08:27 09/15/17 08:27 PT 11.9 SECONDS (9.7-12.2) 09/14/17 15:19 INR 1.0 09/14/17 15:19 APTT 29 SECONDS (21-34) 09/14/17 15:19 - Constitutional Appears: Non-toxic, In Acute Distress - Head Exam Head Exam: ATRAUMATIC - Eye Exam Eye Exam: Conjunctival injection - ENT Exam ENT Exam: Mucous Membranes Dry - Respiratory Exam Respiratory Exam: Decreased Breath Sounds - Cardiovascular Exam Cardiovascular Exam: Irregular Rhythm - GI/Abdominal Exam GI & Abdominal Exam: Tenderness, Normal Bowel Sounds - Rectal Exam Rectal Exam: Deferred - Back Exam Back Exam: CVA tenderness (L) - Neurological Exam Neuro motor strength exam: Left Upper Extremity: 5 - Psychiatric Exam Psychiatric exam: Depressed - Skin Skin Exam: Pallor Assessment and Plan - Assessment and Plan (Free Text) Assessment: abd pain vomiting chest pain cardiac arrythmia dm Plan: will call cardiology consult
[2017-09-17] MEDS: Albuterol-Ipratrop 3 mg / 0.5 (3 ml) UD IH SCH ×3 (03:28→20:25)
--- NOTE | 2017-09-17 06:46 | PN ---
DATE: LOCATION: [facility]. SUBJECTIVE: This is a 37-year-old male who was initially scheduled for upper endoscopy today, was reported to have a run of V-TACH, then had episode of nausea and vomiting and for which the procedure had to be canceled for now due to his cardiac arrhythmia and to be scheduled for tomorrow. No reported active bleeding early this morning. LABORATORY DATA: The most recent lab results showed hemoglobin is still low of 9.5, hematocrit 28.6. Blood glucose level 149 this morning. The rest of the labs still pending for today. Tamiko Conde MD
[2017-09-17] MEDS: Multivitamin Vitamin B Complex (Nephro-Vite) Tab PO SCH (07:43)
[2017-09-17] MEDS: (Novolog) Insulin Aspart, Recombinant 100 u/ml 10 ml vial SC SCH ×4 (07:44→22:19)
[2017-09-17] MEDS: Ranolazine 500 mg Extended Release Tablets PO SCH ×2 (09:38→18:13)
[2017-09-17] MEDS: Pantoprazole 40 mg EC Tab PO SCH (09:38)
[2017-09-17] MEDS ORDERED: Epoetin Alfa Dialysis 40000 UNIT/ml Inj IV SCH (10:00)
--- NOTE | 2017-09-17 10:19 | CP.PCM.PN ---
Subjective - Date & Time of Evaluation Date of Evaluation: 09/17/17 Time of Evaluation: 10:16 - Subjective Subjective: abd pain for endoscopy today no new arrythmia Objective - Vital Signs/Intake and Output Vital Signs (last 24 hours): Temp Pulse Resp BP Pulse Ox 98.1 F 57 L 20 111/64 98 09/17/17 07:00 09/17/17 08:14 09/17/17 07:00 09/17/17 08:14 09/17/17 07:00 - Medications Medications: Current Medications Albuterol/Ipratropium (Duoneb 3 Mg/0.5 Mg (3 Ml) Ud) 3 ml IH Q4 [facility] Last Admin: 09/17/17 03:28 Dose: Not Given Amlodipine Besylate (Norvasc) 10 mg PO DAILY [facility] Last Admin: 09/16/17 10:38 Dose: 10 mg Aspirin (Aspirin Chewable) 81 mg PO DAILY [facility] Last Admin: 09/16/17 10:24 Dose: 81 mg Carvedilol (Coreg) 25 mg PO BID [facility] Last Admin: 09/16/17 18:51 Dose: Not Given Clonidine HCl (Catapres) 0.2 mg PO Q8 [facility] Last Admin: 09/17/17 05:56 Dose: Not Given Dextrose (Dextrose 50% Inj) 25 ml IV Q8 PRN PRN Reason: Hypoglycemia Docusate Sodium (Colace) 100 mg PO DAILY [facility] Last Admin: 09/17/17 09:38 Dose: 100 mg Epoetin Tom (Procrit) 4,000 unit IV TTS [facility] Hydromorphone HCl (Dilaudid) 1 mg IVP Q4H PRN PRN Reason: Pain, severe (8-10) Last Admin: 09/17/17 08:17 Dose: 1 mg Insulin Aspart (Novolog) 0 unit SC ACHS [facility] PRN Reason: Protocol Last Admin: 09/17/17 07:44 Dose: Not Given Isosorbide Mononitrate (Imdur Er) 90 mg PO DAILY [facility] Last Admin: 09/16/17 10:10 Dose: 90 mg Ondansetron HCl (Zofran Inj) 4 mg IVP Q6 PRN PRN Reason: Nausea/Vomiting Last Admin: 09/16/17 15:45 Dose: 4 mg Pantoprazole Sodium (Protonix Ec Tab) 40 mg PO DAILY [facility] Last Admin: 09/17/17 09:38 Dose: 40 mg Ranolazine (Ranexa) 500 mg PO BID [facility] Last Admin: 09/17/17 09:38 Dose: 500 mg Rosuvastatin Calcium (Crestor) 10 mg PO HS [facility] Last Admin: 09/16/17 22:00 Dose: Not Given Sertraline HCl (Zoloft) 50 mg PO DAILY [facility] Last Admin: 09/17/17 09:38 Dose: 50 mg Vitamin B Complex/Vit C/Folic Acid (Nephro-Courtney) 1 tab PO 0800 [facility] Last Admin: 09/17/17 07:43 Dose: Not Given - Labs Labs: 09/15/17 08:27 09/15/17 08:27 PT 11.9 SECONDS (9.7-12.2) 09/14/17 15:19 INR 1.0 09/14/17 15:19 APTT 29 SECONDS (21-34) 09/14/17 15:19 - Constitutional Appears: Non-toxic - Head Exam Head Exam: NORMAL INSPECTION - Eye Exam Eye Exam: Conjunctival injection - ENT Exam ENT Exam: Mucous Membranes Dry - Neck Exam Neck Exam: Full ROM - Respiratory Exam Respiratory Exam: Decreased Breath Sounds - Cardiovascular Exam Cardiovascular Exam: REGULAR RHYTHM - GI/Abdominal Exam GI & Abdominal Exam: Tenderness - Rectal Exam Rectal Exam: NORMAL INSPECTION - Back Exam Back Exam: CVA tenderness (L) - Psychiatric Exam Psychiatric exam: Depressed - Skin Skin Exam: Pallor Assessment and Plan - Assessment and Plan (Free Text) Assessment: abd pain esrf dm copd Plan: endoscopy today
[2017-09-17 10:55] LABS: HEMOGLOBIN 9.2 g/dL (12.0-18.0); MEAN CELL VOLUME 90.8 fL (80.0-94.0); MEAN CORPUSCULAR HEMOGLOBIN 29.8 pg (27.0-31.0); MEAN CORPUSCULAR HGB CONC 32.8 g/dL (33.0-37.0); MEAN PLATELET VOLUME 8.7 fL (7.2-11.7); RBC 3.09 Mil/uL (4.40-5.90); RED CELL DISTRIBUTION WIDTH 19.6 % (11.5-14.5); WHITE BLOOD COUNT 7.4 K/uL (4.8-10.8)
[2017-09-17 11:20] LABS: ALBUMIN 3.8 g/dL (3.5-5.0); CALCIUM 8.2 mg/dl (8.6-10.4)
--- NOTE | 2017-09-17 11:22 | CP.PCM.CON ---
History of Present Illness - History of Present Illness History of Present Illness: 37 y/o with multiple hospital admissions Presents with c/o nausea vomiting (blood streaked) and epigastric pain: Seen by GI and currently in EGD suite * Missed saturday HD * Noted non-sustained VT 6-8 beats. EK09/09/17; NSR, LVH, chronic ST changes lateral, old inferior infarct. 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 moderate pulmonary stenosis Chronic diastolic dysfunction grade 3 Chronic pain Hx of non-compliance with meds and on occasion HD Review of Systems - Review of Systems All systems: reviewed and no additional remarkable complaints except Past Patient History - Infectious Disease Hx of Infectious Diseases: None - Tetanus Immunizations Tetanus Immunization: >10 years Ago - Past Medical History & Family History Past Medical History?: Yes - Past Social History Smoking Status: Never Smoked - CARDIAC Hx Cardiac Disorders: Yes Hx Atrial Fibrillation: Yes Hx Cardia Arrhythmia: Yes Hx Congestive Heart Failure: Yes Hx Hypercholesterolemia: Yes Hx Hypertension: Yes - PULMONARY Hx Respiratory Disorders: Yes Hx Asthma: Yes Hx Bronchitis: Yes Hx Chronic Obstructive Pulmonary Disease (COPD): Yes Hx Pneumonia: Yes - NEUROLOGICAL Hx Neurological Disorder: Yes Hx Alzheimer's Disease: Yes Hx Seizures: Yes - HEENT Hx HEENT Problems: Yes Hx Blind: Yes (legally blind) Hx Cataracts: Yes - RENAL Hx Chronic Kidney Disease: Yes - ENDOCRINE/METABOLIC Hx Hypothyroidism: Yes - HEMATOLOGICAL/ONCOLOGICAL Hx Blood Disorders: Yes Hx Anemia: Yes - INTEGUMENTARY Hx Dermatological Problems: No - MUSCULOSKELETAL/RHEUMATOLOGICAL Hx Falls: No - GASTROINTESTINAL Hx Gastrointestinal Disorders: Yes Hx Gall Bladder Disease: Yes Hx Gastritis: Yes - GENITOURINARY/GYNECOLOGICAL Hx Genitourinary Disorders: No Hx Sexually Transmitted Disorders: No - PSYCHIATRIC Hx Substance Use: No - SURGICAL HISTORY Hx Surgeries: Yes Hx Cholecystectomy: Yes (2011) 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/2009) Hx Coronary Stent: Yes - ANESTHESIA Hx Anesthesia: Yes Hx Anesthesia Reactions: No Hx Malignant Hyperthermia: No Meds Allergies/Adverse Reactions: Allergies Allergy/AdvReac Type Severity Reaction Status Date / Time acetaminophen [From Percocet] Allergy RASH Verified 09/08/17 06:47 atenolol Allergy RASH Verified 09/08/17 06:47 digoxin Allergy RASH Verified 09/08/17 06:47 milk Allergy ITCHING Verified 09/08/17 06:47 morphine Allergy RASH Verified 09/08/17 06:47 oxycodone HCl [From Percocet] Allergy RASH Verified 09/08/17 06:47 - Medications Medications: Current Medications Albuterol/Ipratropium (Duoneb 3 Mg/0.5 Mg (3 Ml) Ud) 3 ml IH Q4 [facility] Last Admin: 09/17/17 03:28 Dose: Not Given Amlodipine Besylate (Norvasc) 10 mg PO DAILY [facility] Last Admin: 09/16/17 10:38 Dose: 10 mg Aspirin (Aspirin Chewable) 81 mg PO DAILY [facility] Last Admin: 09/16/17 10:24 Dose: 81 mg Carvedilol (Coreg) 25 mg PO BID [facility] Last Admin: 09/16/17 18:51 Dose: Not Given Clonidine HCl (Catapres) 0.2 mg PO Q8 [facility] Last Admin: 09/17/17 05:56 Dose: Not Given Dextrose (Dextrose 50% Inj) 25 ml IV Q8 PRN PRN Reason: Hypoglycemia Docusate Sodium (Colace) 100 mg PO DAILY [facility] Last Admin: 09/17/17 09:38 Dose: 100 mg Epoetin Tom (Procrit) 4,000 unit IV TTS [facility] Hydromorphone HCl (Dilaudid) 1 mg IVP Q4H PRN PRN Reason: Pain, severe (8-10) Last Admin: 09/17/17 08:17 Dose: 1 mg Insulin Aspart (Novolog) 0 unit SC ACHS [facility] PRN Reason: Protocol Last Admin: 09/17/17 07:44 Dose: Not Given Isosorbide Mononitrate (Imdur Er) 90 mg PO DAILY [facility] Last Admin: 09/16/17 10:10 Dose: 90 mg Ondansetron HCl (Zofran Inj) 4 mg IVP Q6 PRN PRN Reason: Nausea/Vomiting Last Admin: 09/16/17 15:45 Dose: 4 mg Pantoprazole Sodium (Protonix Ec Tab) 40 mg PO DAILY [facility] Last Admin: 09/17/17 09:38 Dose: 40 mg Ranolazine (Ranexa) 500 mg PO BID [facility] Last Admin: 09/17/17 09:38 Dose: 500 mg Rosuvastatin Calcium (Crestor) 10 mg PO HS [facility] Last Admin: 09/16/17 22:00 Dose: Not Given Sertraline HCl (Zoloft) 50 mg PO DAILY [facility] Last Admin: 09/17/17 09:38 Dose: 50 mg Vitamin B Complex/Vit C/Folic Acid (Nephro-Courtney) 1 tab PO 0800 [facility] Last Admin: 09/17/17 07:43 Dose: Not Given Physical Exam - Constitutional Appears: Chronically Ill - Head Exam Head Exam: ATRAUMATIC, NORMAL INSPECTION, NORMOCEPHALIC - Eye Exam Eye Exam: absent: Normal appearance (legally blind) - ENT Exam ENT Exam: Mucous Membranes Moist, Normal Oropharynx - Respiratory Exam Respiratory Exam: Clear to Auscultation Bilateral, NORMAL BREATHING PATTERN - Cardiovascular Exam Cardiovascular Exam: REGULAR RHYTHM, +S1, +S2, Systolic Murmur - GI/Abdominal Exam GI & Abdominal Exam: Normal Bowel Sounds, Soft - Extremities Exam Extremities exam: Negative for: normal inspection (B/L BKA) - Neurological Exam Neurological exam: Alert, Oriented x3 - Skin Skin Exam: Normal Color, Warm Results - Vital Signs Recent Vital Signs: Last Vital Signs Temp 98.1 F 09/17/17 07:00 Pulse 57 L 09/17/17 08:14 Resp 20 09/17/17 07:00 BP 111/64 09/17/17 08:14 Pulse Ox 98 09/17/17 07:00 - Labs Result Diagrams: 09/17/17 10:51 09/17/17 10:51 Labs: Laboratory Results - last 24 hr 09/16/17 09/16/17 09/16/17 11:36 16:36 16:37 WBC RBC Hgb Hct MCV MCH MCHC RDW Plt Count MPV POC Glucose (mg/dL) 167 H 43 L 50 L 09/16/17 09/16/17 09/17/17 17:05 20:56 06:32 WBC RBC Hgb Hct MCV MCH MCHC RDW Plt Count MPV POC Glucose (mg/dL) 81 167 H 114 H 09/17/17 10:51 WBC 7.4 RBC 3.09 L Hgb 9.2 L Hct 28.1 L MCV 90.8 MCH 29.8 MCHC 32.8 L RDW 19.6 H Plt Count 147 MPV 8.7 POC Glucose (mg/dL) - EKG Data EKG Interpreted by: Myself (NSR, PVCs, PACs, chronic lateral ST changes, old inferior and septal infarct) Assessment & Plan - Assessment and Plan (Free Text) Assessment: 37 y/o with transgender phenotype > DM brittle poorly controlled and hx of non-compliance > HTN is chronic and stable; with hx of non-compliance and sporadic lability > ESRD on HD with hx of non-compliance and missed sessions > PVD s/p bilateral BKA due to recurrent infections and progressive gangrene and non-healing ulcers > Legally blind Coronary artery disease s/p CABG and subsequent PCI all grafts are closed > He remains with preserved LV function and advanced diastolic dysfunction despite diffuse small vessel CAD (too small for PCI) > Recurrent anemia and GI bleed in past and present: deemed not a good candidate for DAPT Noted drop in H/H from 11.2 to 9.2 EGD planned but postponed due to abnormal chem profile and hyperkalemia > Medical therapy remains his most important and sole treatment option at this stage of chronic CAD. > Continue ASA as tolerated, imdur, coreg, high intensity statin; ranexa and titrate these meds as tolerated to achieve optimal BP and HR control. (<120/80 and HR <65). * He unfortunately is not a candidate for any surgical or percutaneous therapy * He has had hx of atrial catheter related thrombus in past ---> he was challenged with AC on many occasions but due to GI bleed deemed unsafe * he has known documented hx of parx AFLUTTER/AFIB He should be on amiodarone 200 daily to mAINTAIN SINUS RHYTHM --> as he has had Aflutter recurrences in past. Patient can proceed with EGD from cardiac standpoint with acceptable risk once elctrolytes are appropriately controlled. - Date & Time Date: 09/17/17 Time: 11:32
[2017-09-17] MEDS: EPOETIN ALFA 4,000 UNIT/ML ML Dialysis IV SCH (16:27)
--- NOTE | 2017-09-17 19:25 | CP.PCM.CON ---
History of Present Illness - History of Present Illness History of Present Illness: Initial Nephrology Consultation: Assessment: Stable chronic chest pain, ? upper GI bleed, Hyperkalemia Diabetic chronic Kidney Disease (E11.22) Hypertensive Chronic Kidney Disease (I12.0) End stage renal disease (N18.6) dependence on hemodialysis (Z99.2) (TTS) via AVF Anemia (D64.9), Hyperphosphatemia (E83.39), Secondary Hyperparathyroidism (E21.1 ), HTN (I12.0) CAD s/p CABG, diastolic CHF, pA flutter/fib, intra-cardiac thrombus, hx of Heparin induced thrombocytopenia, hx of seizure, blindness Plan: Will plan for dialysis today. Continue with Nephrovite 1 tab/day. EGD deferred due to high K. repeat labs in AM PRBC as needed for anemia.epogen with HD as ordered Continue with phos binders home dose Continue with calcitriol BP control with meds as ordered. Glycemic control, Dialysis consistent diet Further work up/management as per primary team Dose meds/antibiotics (if needed) for ESRD status. Avoid fleets enema/magnesium based laxatives. cardiology and GI following pt on PPI Thanks for allowing me to participate in care of your patient. Will follow patient with you. Please call if any Qs Dr Eric Temple Office: [phone] Chief Complaint; chest pain, abdomen pain and vomitting with blood HPI: Pt is a 37 y/o transgender M with hx of ESRD on hemodialysis (TTS) via permacath, chronic anemia, hyperphosphatemia, secondary hyperparathyroidism, Diabetes Mellitus, hypertension, CAD s/p CABG, diastolic CHF, pA flutter/fib, intra-cardiac thrombus, Heparin induced thrombocytopenia in past presented with complaints of acute on chronic chest pain. pt with frequent and multiple hospitalizations for same. also c/o abdomen pain with vomiting ? blood c/o chronic chest pain, denies palpitation, c/o chronic shortness of breath ROS: All other negative. had nausea/vomitting when came Physical Examination: General Appearance: Comfortable, in no acute respiratory distress, co-operative . Vitals reviewed and noted as below Head; Atraumatic, normocephalic ENT: no ulcers no thrush. Tongue is midline. Oropharynx: no rash or ulcers. EYES: Pt is blind both eyes Neck; supple no lymphadenopathy, no thyromegaly or bruit Lungs: Normal respiratory rate/effort. Breath sounds bilateral equal clear Heart: Normal rate. s1s2 normal. No rub or gallop. Extremities: no edema. No varicose veins. has b/l BKA Neurological: Patient is alert, awake and oriented to person, place and time. No focal deficit. Strength bilateral appropriate and equal Skin: Warm and dry. Normal turgor. No rash. Palpitation: Normal elasticity for age Abdomen: Abdomen is soft. Bowel sounds +. There is no abdominal tenderness, no guarding/rigidity or organomegaly Psych: limited insight and has normal affect/mood MSK: no joint tenderness or swelling. Digits and nails normal, no deformity : kidney or bladder not palpable Access: permacath Labs/imaging reviewed. Past medical history, past surgical history, family history, social history, allergy reviewed and noted as below Family Hx: no hx of CKD. Non contributory Past Patient History - Infectious Disease Hx of Infectious Diseases: None - Tetanus Immunizations Tetanus Immunization: >10 years Ago - Past Medical History & Family History Past Medical History?: Yes - Past Social History Smoking Status: Never Smoked - CARDIAC Hx Cardiac Disorders: Yes Hx Atrial Fibrillation: Yes Hx Cardia Arrhythmia: Yes Hx Congestive Heart Failure: Yes Hx Hypercholesterolemia: Yes Hx Hypertension: Yes - PULMONARY Hx Respiratory Disorders: Yes Hx Asthma: Yes Hx Bronchitis: Yes Hx Chronic Obstructive Pulmonary Disease (COPD): Yes Hx Pneumonia: Yes - NEUROLOGICAL Hx Neurological Disorder: Yes Hx Alzheimer's Disease: Yes Hx Seizures: Yes - HEENT Hx HEENT Problems: Yes Hx Blind: Yes (legally blind) Hx Cataracts: Yes - RENAL Hx Chronic Kidney Disease: Yes - ENDOCRINE/METABOLIC Hx Hypothyroidism: Yes - HEMATOLOGICAL/ONCOLOGICAL Hx Blood Disorders: Yes Hx Anemia: Yes - INTEGUMENTARY Hx Dermatological Problems: No - MUSCULOSKELETAL/RHEUMATOLOGICAL Hx Falls: No - GASTROINTESTINAL Hx Gastrointestinal Disorders: Yes Hx Gall Bladder Disease: Yes Hx Gastritis: Yes - GENITOURINARY/GYNECOLOGICAL Hx Genitourinary Disorders: No Hx Sexually Transmitted Disorders: No - PSYCHIATRIC Hx Substance Use: No - SURGICAL HISTORY Hx Surgeries: Yes Hx Cholecystectomy: Yes (2011) 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/2009) Hx Coronary Stent: Yes - ANESTHESIA Hx Anesthesia: Yes Hx Anesthesia Reactions: No Hx Malignant Hyperthermia: No Meds Allergies/Adverse Reactions: Allergies Allergy/AdvReac Type Severity Reaction Status Date / Time acetaminophen [From Percocet] Allergy RASH Verified 09/08/17 06:47 atenolol Allergy RASH Verified 09/08/17 06:47 digoxin Allergy RASH Verified 09/08/17 06:47 milk Allergy ITCHING Verified 09/08/17 06:47 morphine Allergy RASH Verified 09/08/17 06:47 oxycodone HCl [From Percocet] Allergy RASH Verified 09/08/17 06:47 - Medications Medications: Current Medications Albuterol/Ipratropium (Duoneb 3 Mg/0.5 Mg (3 Ml) Ud) 3 ml IH Q4 [facility] Last Admin: 09/17/17 16:31 Dose: Not Given Amiodarone HCl (Cordarone) 200 mg PO DAILY [facility] Last Admin: 09/17/17 18:12 Dose: 200 mg Amlodipine Besylate (Norvasc) 10 mg PO DAILY [facility] Last Admin: 09/17/17 10:30 Dose: Not Given Aspirin (Aspirin Chewable) 81 mg PO DAILY [facility] Last Admin: 09/17/17 09:00 Dose: Not Given Carvedilol (Coreg) 25 mg PO BID [facility] Last Admin: 09/17/17 18:12 Dose: 25 mg Clonidine HCl (Catapres) 0.2 mg PO Q8 [facility] Last Admin: 09/17/17 15:53 Dose: Not Given Dextrose (Dextrose 50% Inj) 25 ml IV Q8 PRN PRN Reason: Hypoglycemia Docusate Sodium (Colace) 100 mg PO DAILY [facility] Last Admin: 09/17/17 09:38 Dose: 100 mg Epoetin Tom (Procrit) 4,000 unit IV TTS [facility] Last Admin: 09/17/17 16:27 Dose: 4,000 unit Hydromorphone HCl (Dilaudid) 1 mg IVP Q4H PRN PRN Reason: Pain, severe (8-10) Last Admin: 09/17/17 18:07 Dose: 1 mg Insulin Aspart (Novolog) 0 unit SC ACHS [facility] PRN Reason: Protocol Last Admin: 09/17/17 17:30 Dose: Not Given Isosorbide Mononitrate (Imdur Er) 90 mg PO DAILY [facility] Last Admin: 09/17/17 10:00 Dose: Not Given Ondansetron HCl (Zofran Inj) 4 mg IVP Q6 PRN PRN Reason: Nausea/Vomiting Last Admin: 09/17/17 12:29 Dose: 4 mg Pantoprazole Sodium (Protonix Ec Tab) 40 mg PO DAILY [facility] Last Admin: 09/17/17 09:38 Dose: 40 mg Ranolazine (Ranexa) 500 mg PO BID [facility] Last Admin: 09/17/17 18:13 Dose: 500 mg Rosuvastatin Calcium (Crestor) 10 mg PO HS [facility] Last Admin: 09/16/17 22:00 Dose: Not Given Sertraline HCl (Zoloft) 50 mg PO DAILY [facility] Last Admin: 09/17/17 09:38 Dose: 50 mg Vitamin B Complex/Vit C/Folic Acid (Nephro-Courtney) 1 tab PO 0800 [facility] Last Admin: 09/17/17 07:43 Dose: Not Given Results - Vital Signs Recent Vital Signs: Last Vital Signs Temp 98.1 F 09/17/17 17:40 Pulse 60 09/17/17 17:44 Resp 16 09/17/17 17:44 BP 142/70 09/17/17 18:12 Pulse Ox 100 09/17/17 17:40 - Labs Result Diagrams: 09/17/17 10:51 09/17/17 10:51 Labs: Laboratory Results - last 24 hr 09/16/17 09/17/17 09/17/17 20:56 06:32 10:51 WBC RBC Hgb Hct MCV MCH MCHC RDW Plt Count MPV Sodium 131 L Potassium 6.5 H* D Chloride 93 L Carbon Dioxide 24 Anion Gap 21 H BUN 67 H Creatinine 8.4 H* D Est GFR ( Amer) 9 Est GFR (Non-Af Amer) 7 POC Glucose (mg/dL) 167 H 114 H Random Glucose 101 Calcium 8.2 L Total Bilirubin 0.4 AST 16 L ALT 20 L D Alkaline Phosphatase 186 H D Total Protein 7.7 Albumin 3.8 Globulin 3.9 Albumin/Globulin Ratio 1.0 09/17/17 09/17/17 10:51 12:14 WBC 7.4 RBC 3.09 L Hgb 9.2 L Hct 28.1 L MCV 90.8 MCH 29.8 MCHC 32.8 L RDW 19.6 H Plt Count 147 MPV 8.7 Sodium Potassium Chloride Carbon Dioxide Anion Gap BUN Creatinine Est GFR ( Amer) Est GFR (Non-Af Amer) POC Glucose (mg/dL) 113 H Random Glucose Calcium Total Bilirubin AST ALT Alkaline Phosphatase Total Protein Albumin Globulin Albumin/Globulin Ratio
[2017-09-18] MEDS: Albuterol-Ipratrop 3 mg / 0.5 (3 ml) UD IH SCH ×6 (00:08→20:05)
--- NOTE | 2017-09-18 00:13 | CARD ---
APPROVED REPORT EKG Measurement Heart [id number] <Conclusion> sinus rhythm with vntricular bigeminy lateral ST T changes consider ishemia Abnormal ECG
[2017-09-18] MEDS: (Novolog) Insulin Aspart, Recombinant 100 u/ml 10 ml vial SC SCH ×4 (07:55→22:26)
[2017-09-18] MEDS: Multivitamin Vitamin B Complex (Nephro-Vite) Tab PO SCH (07:55)
[2017-09-18] MEDS: Pantoprazole 40 mg EC Tab PO SCH (10:10)
[2017-09-18] MEDS: Ranolazine 500 mg Extended Release Tablets PO SCH ×2 (10:25→18:29)
--- NOTE | 2017-09-18 11:01 | CP.PCM.PN ---
Subjective - Date & Time of Evaluation Date of Evaluation: 09/18/17 Time of Evaluation: 10:58 - Subjective Subjective: pt had endoscopy today no new arrythmia but will cont teletoday and start diet Objective - Vital Signs/Intake and Output Vital Signs (last 24 hours): Temp Pulse Resp BP Pulse Ox 98.2 F 62 20 116/62 100 09/18/17 07:00 09/18/17 07:00 09/18/17 07:00 09/18/17 10:10 09/18/17 07:00 - Medications Medications: Current Medications Albuterol/Ipratropium (Duoneb 3 Mg/0.5 Mg (3 Ml) Ud) 3 ml IH Q4 [facility] Last Admin: 09/18/17 08:01 Dose: 3 ml Amiodarone HCl (Cordarone) 200 mg PO DAILY [facility] Last Admin: 09/18/17 10:10 Dose: 200 mg Amlodipine Besylate (Norvasc) 10 mg PO DAILY [facility] Last Admin: 09/18/17 10:10 Dose: 10 mg Aspirin (Aspirin Chewable) 81 mg PO DAILY [facility] Last Admin: 09/18/17 10:10 Dose: 81 mg Carvedilol (Coreg) 25 mg PO BID [facility] Last Admin: 09/18/17 10:10 Dose: 25 mg Clonidine HCl (Catapres) 0.2 mg PO Q8 [facility] Last Admin: 09/18/17 06:11 Dose: 0.2 mg Dextrose (Dextrose 50% Inj) 25 ml IV Q8 PRN PRN Reason: Hypoglycemia Docusate Sodium (Colace) 100 mg PO DAILY [facility] Last Admin: 09/18/17 10:10 Dose: 100 mg Epoetin Tom (Procrit) 4,000 unit IV TTS [facility] Last Admin: 09/17/17 16:27 Dose: 4,000 unit Hydromorphone HCl (Dilaudid) 1 mg IVP Q4H PRN PRN Reason: Pain, severe (8-10) Last Admin: 09/18/17 10:10 Dose: 1 mg Insulin Aspart (Novolog) 0 unit SC ACHS [facility] PRN Reason: Protocol Last Admin: 09/18/17 07:55 Dose: 2 unit Isosorbide Mononitrate (Imdur Er) 90 mg PO DAILY [facility] Last Admin: 09/18/17 10:10 Dose: 90 mg Ondansetron HCl (Zofran Inj) 4 mg IVP Q6 PRN PRN Reason: Nausea/Vomiting Last Admin: 09/17/17 12:29 Dose: 4 mg Pantoprazole Sodium (Protonix Ec Tab) 40 mg PO DAILY [facility] Last Admin: 09/18/17 10:10 Dose: 40 mg Ranolazine (Ranexa) 500 mg PO BID [facility] Last Admin: 09/17/17 18:13 Dose: 500 mg Rosuvastatin Calcium (Crestor) 10 mg PO HS [facility] Last Admin: 09/17/17 22:19 Dose: 10 mg Sertraline HCl (Zoloft) 50 mg PO DAILY [facility] Last Admin: 09/18/17 10:10 Dose: 50 mg Vitamin B Complex/Vit C/Folic Acid (Nephro-Courtney) 1 tab PO 0800 [facility] Last Admin: 09/18/17 07:55 Dose: 1 tab - Labs Labs: 09/17/17 10:51 09/17/17 10:51 PT 11.9 SECONDS (9.7-12.2) 09/14/17 15:19 INR 1.0 09/14/17 15:19 APTT 29 SECONDS (21-34) 09/14/17 15:19 - Constitutional Appears: Non-toxic - Head Exam Head Exam: NORMAL INSPECTION - Eye Exam Eye Exam: Conjunctival injection - ENT Exam ENT Exam: Mucous Membranes Moist - Neck Exam Neck Exam: Full ROM - Respiratory Exam Respiratory Exam: Decreased Breath Sounds - Cardiovascular Exam Cardiovascular Exam: REGULAR RHYTHM - GI/Abdominal Exam GI & Abdominal Exam: Normal Bowel Sounds - Rectal Exam Rectal Exam: NORMAL INSPECTION - Back Exam Back Exam: CVA tenderness (L) - Neurological Exam Neurological Exam: Awake, Oriented x3 - Psychiatric Exam Psychiatric exam: Normal Mood - Skin Skin Exam: Pallor Assessment and Plan - Assessment and Plan (Free Text) Assessment: gastritis s/p abd pain and vomiting s/p cardiac arrythmia cad esrf Plan: cont as per orders
[2017-09-18 11:54] LABS: BASO % 0.4 % (0.0-2.0); EOS # 0.3 K/uL (0.0-0.7); EOS % 4.1 % (0.0-4.0); HEMOGLOBIN 9.8 g/dL (12.0-18.0); LYMPH % 29.9 % (20.0-40.0); MEAN CORPUSCULAR HEMOGLOBIN 30.4 pg (27.0-31.0); MEAN CORPUSCULAR HGB CONC 33.1 g/dL (33.0-37.0); MONO # 0.6 K/uL (0.0-0.8); MONO % 8.5 % (0.0-10.0); NEUT # 3.8 K/uL (1.8-7.0); NEUT % 57.1 % (50.0-75.0); RBC 3.21 Mil/uL (4.40-5.90); RED CELL DISTRIBUTION WIDTH 20.3 % (11.5-14.5); WHITE BLOOD COUNT 6.6 K/uL (4.8-10.8)
--- NOTE | 2017-09-18 12:13 | PN ---
DATE: LOCATION: [facility], bed A. SUBJECTIVE: This is a 37-year-old male seen and examined in rounds early today, somewhat tolerating oral intake well without any reported vomiting, but mild nausea. No reported active bleeding. Next, we mentioned that the patient was scheduled for EGD yesterday and due to his hyperkalemia and recent runs of ventricular tachycardia, the anesthesia decided to cancel the case in coordination with myself to avoid any potential risk of cardiac arrhythmia during the upper endoscopy. The entire chart is reviewed including but not limited to the most recent lab and radiology study results, current and the previous medication list, current and previous medical events. Case discussed with the staff in the floor at length and today's lab showed blood glucose level of 183; however, yesterday's lab showed drop of hemoglobin to 9.2, hematocrit 28.1 with potassium 6.5 and creatinine 8.4, BUN 64. Patient is for hemodialysis with low calcium of 8.2. PHYSICAL EXAMINATION GENERAL: A 37-year-old male awake, alert, oriented, responding to verbal stimuli adequately. VITAL SIGNS: Afebrile with pulse of 60, respiratory rate of 18 to 20, and blood pressure of 106/74. HEENT: Showed mildly pale, dry oral mucoid membrane. Nonicteric sclera. Patient is legally blind. LUNGS: Mildly scattered crepitation. Decreased air entry at bases. HEART: Positive S1 and S2. ABDOMEN: Soft with mild generalized tenderness. No mass or organomegaly. No rebound tenderness or guarding. EXTREMITIES: With bilateral [id number] amputation. NEUROLOGIC: No new reported neurological deficits. IMPRESSION: 1. Diabetes mellitus with diabetic gastroparesis. 2. Recent history of hematemesis, subsided. 3. Known history of but not limited to cardiac arrhythmias; end-stage renal disease, on hemodialysis; peripheral vascular disease; bilateral [id number] amputation. 4. Reported history of deep venous thrombosis with hypertension. SUGGESTIONS: 1. Agree with your plan. 2. Advance diet gradually. 3. If there is no evidence of nausea or vomiting, then no need for aggressive GI workup in the meantime. Tamiko Conde MD [facility] # [id number]
[2017-09-18 12:19] LABS: CALCIUM 8.2 mg/dl (8.6-10.4)
--- NOTE | 2017-09-18 16:47 | CP.PCM.PN ---
Subjective - Date & Time of Evaluation Date of Evaluation: 09/18/17 Time of Evaluation: 16:46 - Subjective Subjective: Follow up Nephrology Consultation: Assessment: Stable chronic chest pain, ? upper GI bleed, Hyperkalemia Diabetic chronic Kidney Disease (E11.22) Hypertensive Chronic Kidney Disease (I12.0) End stage renal disease (N18.6) dependence on hemodialysis (Z99.2) (TTS) via AVF Anemia (D64.9), Hyperphosphatemia (E83.39), Secondary Hyperparathyroidism (E21.1 ), HTN (I12.0) CAD s/p CABG, diastolic CHF, pA flutter/fib, intra-cardiac thrombus, hx of Heparin induced thrombocytopenia, hx of seizure, blindness Plan: Will plan for dialysis tomorrow. Continue with Nephrovite 1 tab/day. PRBC as needed for anemia.epogen with HD as ordered Continue with phos binders home dose Continue with calcitriol BP control with meds as ordered. Glycemic control, Dialysis consistent diet Further work up/management as per primary team Dose meds/antibiotics (if needed) for ESRD status. Avoid fleets enema/magnesium based laxatives. cardiology and GI following pt on PPI pt stable for d/c from renal perspective when planned by team Thanks for allowing me to participate in care of your patient. Will follow patient with you. Please call if any Qs. d/w team Dr Eric Temple Office: [phone] HPI: Pt is a 37 y/o transgender M with hx of ESRD on hemodialysis (TTS) via permacath, chronic anemia, hyperphosphatemia, secondary hyperparathyroidism, Diabetes Mellitus, hypertension, CAD s/p CABG, diastolic CHF, pA flutter/fib, intra-cardiac thrombus, Heparin induced thrombocytopenia in past presented with complaints of acute on chronic chest pain. pt with frequent and multiple hospitalizations for same. also c/o abdomen pain with vomiting ? blood c/o chronic chest pain, denies palpitation, c/o chronic shortness of breath ROS: All other negative. had nausea/vomitting when came Physical Examination: General Appearance: Comfortable, in no acute respiratory distress, co-operative . Vitals reviewed and noted as below Head; Atraumatic, normocephalic ENT: no ulcers no thrush. Tongue is midline. Oropharynx: no rash or ulcers. EYES: Pt is blind both eyes Neck; supple no lymphadenopathy, no thyromegaly or bruit Lungs: Normal respiratory rate/effort. Breath sounds bilateral equal clear Heart: Normal rate. s1s2 normal. No rub or gallop. Extremities: no edema. No varicose veins. has b/l BKA Neurological: Patient is alert, awake and oriented to person, place and time. No focal deficit. Strength bilateral appropriate and equal Skin: Warm and dry. Normal turgor. No rash. Palpitation: Normal elasticity for age Abdomen: Abdomen is soft. Bowel sounds +. There is no abdominal tenderness, no guarding/rigidity or organomegaly Psych: limited insight and has normal affect/mood MSK: no joint tenderness or swelling. Digits and nails normal, no deformity : kidney or bladder not palpable Access: permacath Labs/imaging reviewed. Past medical history, past surgical history, family history, social history, allergy reviewed and noted as below Family Hx: no hx of CKD. Non contributory Objective - Vital Signs/Intake and Output Vital Signs (last 24 hours): Temp Pulse Resp BP Pulse Ox 98.2 F 62 20 112/62 100 09/18/17 07:00 09/18/17 07:00 09/18/17 07:00 09/18/17 13:16 09/18/17 07:00 Intake and Output: 09/18/17 09/18/17 06:59 18:59 Intake Total 480 Balance 480 - Medications Medications: Current Medications Albuterol/Ipratropium (Duoneb 3 Mg/0.5 Mg (3 Ml) Ud) 3 ml IH Q4 [facility] Last Admin: 09/18/17 15:51 Dose: 3 ml Amiodarone HCl (Cordarone) 200 mg PO DAILY [facility] Last Admin: 09/18/17 10:10 Dose: 200 mg Amlodipine Besylate (Norvasc) 10 mg PO DAILY [facility] Last Admin: 09/18/17 10:10 Dose: 10 mg Aspirin (Aspirin Chewable) 81 mg PO DAILY [facility] Last Admin: 09/18/17 10:10 Dose: 81 mg Carvedilol (Coreg) 25 mg PO BID [facility] Last Admin: 09/18/17 10:10 Dose: 25 mg Clonidine HCl (Catapres) 0.2 mg PO Q8 [facility] Last Admin: 09/18/17 13:31 Dose: 0.2 mg Dextrose (Dextrose 50% Inj) 25 ml IV Q8 PRN PRN Reason: Hypoglycemia Docusate Sodium (Colace) 100 mg PO DAILY [facility] Last Admin: 09/18/17 10:10 Dose: 100 mg Epoetin Tom (Procrit) 4,000 unit IV TTS [facility] Last Admin: 09/17/17 16:27 Dose: 4,000 unit Hydromorphone HCl (Dilaudid) 1 mg IVP Q4H PRN PRN Reason: Pain, severe (8-10) Last Admin: 09/18/17 14:22 Dose: 1 mg Insulin Aspart (Novolog) 0 unit SC ACHS [facility] PRN Reason: Protocol Last Admin: 09/18/17 12:25 Dose: 3 unit Isosorbide Mononitrate (Imdur Er) 90 mg PO DAILY [facility] Last Admin: 09/18/17 10:10 Dose: 90 mg Ondansetron HCl (Zofran Inj) 4 mg IVP Q6 PRN PRN Reason: Nausea/Vomiting Last Admin: 09/17/17 12:29 Dose: 4 mg Pantoprazole Sodium (Protonix Ec Tab) 40 mg PO DAILY [facility] Last Admin: 09/18/17 10:10 Dose: 40 mg Ranolazine (Ranexa) 500 mg PO BID [facility] Last Admin: 09/18/17 10:25 Dose: 500 mg Rosuvastatin Calcium (Crestor) 10 mg PO HS [facility] Last Admin: 09/17/17 22:19 Dose: 10 mg Sertraline HCl (Zoloft) 50 mg PO DAILY [facility] Last Admin: 09/18/17 10:10 Dose: 50 mg Vitamin B Complex/Vit C/Folic Acid (Nephro-Courtney) 1 tab PO 0800 [facility] Last Admin: 09/18/17 07:55 Dose: 1 tab - Labs Labs: 09/18/17 11:41 09/18/17 11:41 PT 11.9 SECONDS (9.7-12.2) 09/14/17 15:19 INR 1.0 09/14/17 15:19 APTT 29 SECONDS (21-34) 09/14/17 15:19
[2017-09-19] MEDS: Albuterol-Ipratrop 3 mg / 0.5 (3 ml) UD IH SCH ×4 (00:11→16:51)
[2017-09-19] MEDS: (Novolog) Insulin Aspart, Recombinant 100 u/ml 10 ml vial SC SCH ×3 (08:23→17:00)
[2017-09-19] MEDS: Multivitamin Vitamin B Complex (Nephro-Vite) Tab PO SCH (08:23)
[2017-09-19 08:39] VITALS: O2SAT 100
[2017-09-19] MEDS: Pantoprazole 40 mg EC Tab PO SCH (09:11)
[2017-09-19] MEDS: EPOETIN ALFA 4,000 UNIT/ML ML Dialysis IV SCH (11:09)
[2017-09-19] MEDS: Ranolazine 500 mg Extended Release Tablets PO SCH ×2 (11:19→18:02)
--- NOTE | 2017-09-19 12:02 | CP.PCM.PN ---
Subjective - Date & Time of Evaluation Date of Evaluation: 09/19/17 Time of Evaluation: 12:00 - Subjective Subjective: No new arrythmias No CP Current getting HD and appears in no distress Awake, alert, ox3 Hgb 9.2 > 9.8 Objective - Vital Signs/Intake and Output Vital Signs (last 24 hours): Temp Pulse Resp BP Pulse Ox 97.8 F 60 20 90/54 L 100 09/19/17 09:45 09/19/17 09:45 09/19/17 09:45 09/19/17 11:45 09/19/17 09:45 Intake and Output: 09/19/17 09/19/17 06:59 18:59 Intake Total 240 Balance 240 - Medications Medications: Current Medications Albuterol/Ipratropium (Duoneb 3 Mg/0.5 Mg (3 Ml) Ud) 3 ml IH Q4 [facility] Last Admin: 09/19/17 11:21 Dose: Not Given Amiodarone HCl (Cordarone) 200 mg PO DAILY [facility] Last Admin: 09/19/17 11:11 Dose: Not Given Amlodipine Besylate (Norvasc) 10 mg PO DAILY [facility] Last Admin: 09/19/17 11:12 Dose: Not Given Aspirin (Aspirin Chewable) 81 mg PO DAILY [facility] Last Admin: 09/19/17 09:11 Dose: 81 mg Carvedilol (Coreg) 25 mg PO BID [facility] Last Admin: 09/19/17 11:11 Dose: Not Given Clonidine HCl (Catapres) 0.2 mg PO Q8 [facility] Last Admin: 09/19/17 06:37 Dose: 0.2 mg Dextrose (Dextrose 50% Inj) 25 ml IV Q8 PRN PRN Reason: Hypoglycemia Docusate Sodium (Colace) 100 mg PO DAILY [facility] Last Admin: 09/19/17 09:11 Dose: 100 mg Epoetin Tom (Procrit) 4,000 unit IV TTS [facility] Last Admin: 09/19/17 11:09 Dose: 4,000 unit Hydromorphone HCl (Dilaudid) 1 mg IVP Q4H PRN PRN Reason: Pain, severe (8-10) Last Admin: 09/19/17 11:00 Dose: 1 mg Insulin Aspart (Novolog) 0 unit SC ACHS [facility] PRN Reason: Protocol Last Admin: 09/19/17 08:23 Dose: 2 unit Isosorbide Mononitrate (Imdur Er) 90 mg PO DAILY [facility] Last Admin: 09/19/17 11:11 Dose: Not Given Ondansetron HCl (Zofran Inj) 4 mg IVP Q6 PRN PRN Reason: Nausea/Vomiting Last Admin: 09/17/17 12:29 Dose: 4 mg Pantoprazole Sodium (Protonix Ec Tab) 40 mg PO DAILY [facility] Last Admin: 09/19/17 09:11 Dose: 40 mg Ranolazine (Ranexa) 500 mg PO BID [facility] Last Admin: 09/19/17 11:19 Dose: Not Given Rosuvastatin Calcium (Crestor) 10 mg PO HS [facility] Last Admin: 09/18/17 22:20 Dose: 10 mg Sertraline HCl (Zoloft) 50 mg PO DAILY [facility] Last Admin: 09/19/17 09:11 Dose: 50 mg Vitamin B Complex/Vit C/Folic Acid (Nephro-Courtney) 1 tab PO 0800 [facility] Last Admin: 09/19/17 08:23 Dose: 1 tab - Labs Labs: 09/18/17 11:41 09/18/17 11:41 PT 11.9 SECONDS (9.7-12.2) 09/14/17 15:19 INR 1.0 09/14/17 15:19 APTT 29 SECONDS (21-34) 09/14/17 15:19 - Constitutional Appears: Chronically Ill - Respiratory Exam Respiratory Exam: Clear to Ausculation Bilateral, NORMAL BREATHING PATTERN. absent: Rales, Rhonchi, Wheezes - Cardiovascular Exam Cardiovascular Exam: REGULAR RHYTHM, +S1, +S2, Murmur. absent: JVD - Extremities Exam Extremities Exam: absent: Normal Inspection (B/L BKA) Assessment and Plan - Assessment and Plan (Free Text) Assessment: 37 y/o with transgender phenotype > DM brittle poorly controlled and hx of non-compliance > HTN is chronic and stable; with hx of non-compliance and sporadic lability > ESRD on HD with hx of non-compliance and missed sessions > PVD s/p bilateral BKA due to recurrent infections and progressive gangrene and non-healing ulcers > Legally blind Coronary artery disease s/p CABG and subsequent PCI all grafts are closed > He remains with preserved LV function and advanced diastolic dysfunction despite diffuse small vessel CAD (too small for PCI) > Recurrent anemia and GI bleed in past and present: deemed not a good candidate for DAPT > cont ASA if tolerated Noted drop in H/H from 11.2 to 9.2 now improved to 9.8 Corrected hyperkalemia with HD > Medical therapy remains his most important and sole treatment option at this stage of chronic CAD. > Continue ASA as tolerated, imdur, coreg, high intensity statin; ranexa and titrate these meds as tolerated to achieve optimal BP and HR control. (<120/80 and HR <65). * He unfortunately is not a candidate for any surgical or percutaneous therapy * He has had hx of atrial catheter related thrombus in past ---> he was challenged with AC on many occasions but due to GI bleed deemed unsafe * he has known documented hx of parx AFLUTTER/AFIB Continue amiodarone 200 daily to mAINTAIN SINUS RHYTHM --> as he has had Aflutter recurrences in past.
[2017-09-19 14:10] VITALS: PULSE 62
--- NOTE | 2017-09-19 15:48 | CP.PCM.PN ---
Subjective - Date & Time of Evaluation Date of Evaluation: 09/19/17 Time of Evaluation: 11:00 - Subjective Subjective: Follow up Nephrology Consultation: Assessment: Stable chronic chest pain, ? upper GI bleed, Hyperkalemia Diabetic chronic Kidney Disease (E11.22) Hypertensive Chronic Kidney Disease (I12.0) End stage renal disease (N18.6) dependence on hemodialysis (Z99.2) (TTS) via AVF Anemia (D64.9), Hyperphosphatemia (E83.39), Secondary Hyperparathyroidism (E21.1 ), HTN (I12.0) CAD s/p CABG, diastolic CHF, pA flutter/fib, intra-cardiac thrombus, hx of Heparin induced thrombocytopenia, hx of seizure, blindness Plan: plan for dialysis today. Continue with Nephrovite 1 tab/day. PRBC as needed for anemia.epogen with HD as ordered Continue with phos binders home dose Continue with calcitriol BP control with meds as ordered. Glycemic control, Dialysis consistent diet Further work up/management as per primary team Dose meds/antibiotics (if needed) for ESRD status. Avoid fleets enema/magnesium based laxatives. cardiology and GI following pt on PPI pt stable for d/c from renal perspective when planned by team Thanks for allowing me to participate in care of your patient. Will follow patient with you. Please call if any Qs. d/w team Dr Eric Temple Office: [phone] HPI: Pt is a 37 y/o transgender M with hx of ESRD on hemodialysis (TTS) via permacath, chronic anemia, hyperphosphatemia, secondary hyperparathyroidism, Diabetes Mellitus, hypertension, CAD s/p CABG, diastolic CHF, pA flutter/fib, intra-cardiac thrombus, Heparin induced thrombocytopenia in past presented with complaints of acute on chronic chest pain. pt with frequent and multiple hospitalizations for same. also c/o abdomen pain with vomiting ? blood c/o chronic chest pain, denies palpitation, c/o chronic shortness of breath c/o abdomen pain Physical Examination: seen on HD General Appearance: Comfortable, in no acute respiratory distress, co-operative . Vitals reviewed and noted as below Head; Atraumatic, normocephalic ENT: no ulcers no thrush. Tongue is midline. Oropharynx: no rash or ulcers. EYES: Pt is blind both eyes Neck; supple no lymphadenopathy, no thyromegaly or bruit Lungs: Normal respiratory rate/effort. Breath sounds bilateral equal clear Heart: Normal rate. s1s2 normal. No rub or gallop. Extremities: no edema. No varicose veins. has b/l BKA Neurological: Patient is alert, awake and oriented to person, place and time. No focal deficit. Strength bilateral appropriate and equal Skin: Warm and dry. Normal turgor. No rash. Palpitation: Normal elasticity for age Abdomen: Abdomen is soft. Bowel sounds +. There is no abdominal tenderness, no guarding/rigidity or organomegaly Psych: limited insight and has normal affect/mood MSK: no joint tenderness or swelling. Digits and nails normal, no deformity : kidney or bladder not palpable Access: permacath Labs/imaging reviewed. Past medical history, past surgical history, family history, social history, allergy reviewed and noted as below Family Hx: no hx of CKD. Non contributory Objective - Vital Signs/Intake and Output Vital Signs (last 24 hours): Temp Pulse Resp BP Pulse Ox 97.2 F L 62 18 108/53 L 100 09/19/17 13:15 09/19/17 14:09 09/19/17 13:15 09/19/17 14:09 09/19/17 13:15 Intake and Output: 09/19/17 09/19/17 06:59 18:59 Intake Total 240 480 Balance 240 480 - Medications Medications: Current Medications Albuterol/Ipratropium (Duoneb 3 Mg/0.5 Mg (3 Ml) Ud) 3 ml IH Q4 [facility] Last Admin: 09/19/17 11:21 Dose: Not Given Amiodarone HCl (Cordarone) 200 mg PO DAILY [facility] Last Admin: 09/19/17 11:11 Dose: Not Given Amlodipine Besylate (Norvasc) 10 mg PO DAILY [facility] Last Admin: 09/19/17 11:12 Dose: Not Given Aspirin (Aspirin Chewable) 81 mg PO DAILY [facility] Last Admin: 09/19/17 09:11 Dose: 81 mg Carvedilol (Coreg) 25 mg PO BID [facility] Last Admin: 09/19/17 11:11 Dose: Not Given Clonidine HCl (Catapres) 0.2 mg PO Q8 [facility] Last Admin: 09/19/17 15:00 Dose: Not Given Dextrose (Dextrose 50% Inj) 25 ml IV Q8 PRN PRN Reason: Hypoglycemia Docusate Sodium (Colace) 100 mg PO DAILY [facility] Last Admin: 09/19/17 09:11 Dose: 100 mg Epoetin Tom (Procrit) 4,000 unit IV TTS [facility] Last Admin: 09/19/17 11:09 Dose: 4,000 unit Hydromorphone HCl (Dilaudid) 1 mg IVP Q4H PRN PRN Reason: Pain, severe (8-10) Last Admin: 09/19/17 15:09 Dose: 1 mg Insulin Aspart (Novolog) 0 unit SC ACHS [facility] PRN Reason: Protocol Last Admin: 09/19/17 12:32 Dose: Not Given Isosorbide Mononitrate (Imdur Er) 90 mg PO DAILY [facility] Last Admin: 09/19/17 11:11 Dose: Not Given Ondansetron HCl (Zofran Inj) 4 mg IVP Q6 PRN PRN Reason: Nausea/Vomiting Last Admin: 09/17/17 12:29 Dose: 4 mg Pantoprazole Sodium (Protonix Ec Tab) 40 mg PO DAILY [facility] Last Admin: 09/19/17 09:11 Dose: 40 mg Ranolazine (Ranexa) 500 mg PO BID [facility] Last Admin: 09/19/17 11:19 Dose: Not Given Rosuvastatin Calcium (Crestor) 10 mg PO HS [facility] Last Admin: 09/18/17 22:20 Dose: 10 mg Sertraline HCl (Zoloft) 50 mg PO DAILY [facility] Last Admin: 09/19/17 09:11 Dose: 50 mg Vitamin B Complex/Vit C/Folic Acid (Nephro-Courtney) 1 tab PO 0800 [facility] Last Admin: 09/19/17 08:23 Dose: 1 tab - Labs Labs: 09/18/17 11:41 09/18/17 11:41 PT 11.9 SECONDS (9.7-12.2) 09/14/17 15:19 INR 1.0 09/14/17 15:19 APTT 29 SECONDS (21-34) 09/14/17 15:19
--- NOTE | 2017-09-19 17:26 | CP.PCM.PN ---
Subjective - Date & Time of Evaluation Date of Evaluation: 09/19/17 Time of Evaluation: 16:35 - Subjective Subjective: [facility] NOTES Pateint seen today after HD, denies any chest pain, sob, abdominal pain, N/V/, tolerating diet , no further bleeding reported hgb - stable D/W Dr. Kan, cleared fro discharge home , no evidence of bleeding an dhgb stable seen by Dr. Abreu today, cleared for discharge and continue amiodorone 200 po daily D/W Dr. Li, stable for discharge home today and continue HD as scheduled Discharge plan discussed with patient , who understands and agrees with plan Patient states his dad will be home to receive him SW will arrange transportation Objective - Vital Signs/Intake and Output Vital Signs (last 24 hours): Temp Pulse Resp BP Pulse Ox 97.2 F L 62 18 108/53 L 100 09/19/17 13:15 09/19/17 14:09 09/19/17 13:15 09/19/17 14:09 09/19/17 13:15 Intake and Output: 09/19/17 09/19/17 06:59 18:59 Intake Total 240 480 Balance 240 480 - Medications Medications: Current Medications Albuterol/Ipratropium (Duoneb 3 Mg/0.5 Mg (3 Ml) Ud) 3 ml IH Q4 [facility] Last Admin: 09/19/17 16:51 Dose: 3 ml Amiodarone HCl (Cordarone) 200 mg PO DAILY [facility] Last Admin: 09/19/17 11:11 Dose: Not Given Amlodipine Besylate (Norvasc) 10 mg PO DAILY [facility] Last Admin: 09/19/17 11:12 Dose: Not Given Aspirin (Aspirin Chewable) 81 mg PO DAILY [facility] Last Admin: 09/19/17 09:11 Dose: 81 mg Carvedilol (Coreg) 25 mg PO BID [facility] Last Admin: 09/19/17 11:11 Dose: Not Given Clonidine HCl (Catapres) 0.2 mg PO Q8 [facility] Last Admin: 09/19/17 15:00 Dose: Not Given Dextrose (Dextrose 50% Inj) 25 ml IV Q8 PRN PRN Reason: Hypoglycemia Docusate Sodium (Colace) 100 mg PO DAILY [facility] Last Admin: 09/19/17 09:11 Dose: 100 mg Epoetin Tom (Procrit) 4,000 unit IV TTS [facility] Last Admin: 09/19/17 11:09 Dose: 4,000 unit Hydromorphone HCl (Dilaudid) 1 mg IVP Q4H PRN PRN Reason: Pain, severe (8-10) Last Admin: 09/19/17 15:09 Dose: 1 mg Insulin Aspart (Novolog) 0 unit SC ACHS [facility] PRN Reason: Protocol Last Admin: 09/19/17 12:32 Dose: Not Given Isosorbide Mononitrate (Imdur Er) 90 mg PO DAILY [facility] Last Admin: 09/19/17 11:11 Dose: Not Given Ondansetron HCl (Zofran Inj) 4 mg IVP Q6 PRN PRN Reason: Nausea/Vomiting Last Admin: 09/17/17 12:29 Dose: 4 mg Pantoprazole Sodium (Protonix Ec Tab) 40 mg PO DAILY [facility] Last Admin: 09/19/17 09:11 Dose: 40 mg Ranolazine (Ranexa) 500 mg PO BID [facility] Last Admin: 09/19/17 11:19 Dose: Not Given Rosuvastatin Calcium (Crestor) 10 mg PO HS [facility] Last Admin: 09/18/17 22:20 Dose: 10 mg Sertraline HCl (Zoloft) 50 mg PO DAILY [facility] Last Admin: 09/19/17 09:11 Dose: 50 mg Vitamin B Complex/Vit C/Folic Acid (Nephro-Courtney) 1 tab PO 0800 [facility] Last Admin: 09/19/17 08:23 Dose: 1 tab - Labs Labs: 09/18/17 11:41 09/18/17 11:41 PT 11.9 SECONDS (9.7-12.2) 09/14/17 15:19 INR 1.0 09/14/17 15:19 APTT 29 SECONDS (21-34) 09/14/17 15:19
[2017-09-19 18:05] VITALS: BP 101/44
--- NOTE | 2017-09-19 18:59 | CP.PCM.PN ---
Subjective - Date & Time of Evaluation Date of Evaluation: 09/19/17 Time of Evaluation: 16:20 - Subjective Subjective: pt feels beter has dialysis toay eating no vomiting Objective - Vital Signs/Intake and Output Vital Signs (last 24 hours): Temp Pulse Resp BP Pulse Ox 97.2 F L 62 18 101/44 L 100 09/19/17 13:15 09/19/17 15:30 09/19/17 13:15 09/19/17 18:04 09/19/17 13:15 Intake and Output: 09/19/17 09/19/17 06:59 18:59 Intake Total 240 480 Balance 240 480 - Medications Medications: Current Medications Albuterol/Ipratropium (Duoneb 3 Mg/0.5 Mg (3 Ml) Ud) 3 ml IH Q4 [facility] Last Admin: 09/19/17 16:51 Dose: 3 ml Amiodarone HCl (Cordarone) 200 mg PO DAILY [facility] Last Admin: 09/19/17 11:11 Dose: Not Given Amlodipine Besylate (Norvasc) 10 mg PO DAILY [facility] Last Admin: 09/19/17 11:12 Dose: Not Given Aspirin (Aspirin Chewable) 81 mg PO DAILY [facility] Last Admin: 09/19/17 09:11 Dose: 81 mg Carvedilol (Coreg) 25 mg PO BID [facility] Last Admin: 09/19/17 18:04 Dose: Not Given Clonidine HCl (Catapres) 0.2 mg PO Q8 [facility] Last Admin: 09/19/17 15:00 Dose: Not Given Dextrose (Dextrose 50% Inj) 25 ml IV Q8 PRN PRN Reason: Hypoglycemia Docusate Sodium (Colace) 100 mg PO DAILY [facility] Last Admin: 09/19/17 09:11 Dose: 100 mg Epoetin Tom (Procrit) 4,000 unit IV TTS [facility] Last Admin: 09/19/17 11:09 Dose: 4,000 unit Hydromorphone HCl (Dilaudid) 1 mg IVP Q4H PRN PRN Reason: Pain, severe (8-10) Last Admin: 09/19/17 15:09 Dose: 1 mg Insulin Aspart (Novolog) 0 unit SC ACHS [facility] PRN Reason: Protocol Last Admin: 09/19/17 12:32 Dose: Not Given Isosorbide Mononitrate (Imdur Er) 90 mg PO DAILY [facility] Last Admin: 09/19/17 11:11 Dose: Not Given Ondansetron HCl (Zofran Inj) 4 mg IVP Q6 PRN PRN Reason: Nausea/Vomiting Last Admin: 09/17/17 12:29 Dose: 4 mg Pantoprazole Sodium (Protonix Ec Tab) 40 mg PO DAILY [facility] Last Admin: 09/19/17 09:11 Dose: 40 mg Ranolazine (Ranexa) 500 mg PO BID [facility] Last Admin: 09/19/17 18:02 Dose: 500 mg Rosuvastatin Calcium (Crestor) 10 mg PO HS [facility] Last Admin: 09/18/17 22:20 Dose: 10 mg Sertraline HCl (Zoloft) 50 mg PO DAILY [facility] Last Admin: 09/19/17 09:11 Dose: 50 mg Vitamin B Complex/Vit C/Folic Acid (Nephro-Courtney) 1 tab PO 0800 [facility] Last Admin: 09/19/17 08:23 Dose: 1 tab - Labs Labs: 09/18/17 11:41 09/18/17 11:41 PT 11.9 SECONDS (9.7-12.2) 09/14/17 15:19 INR 1.0 09/14/17 15:19 APTT 29 SECONDS (21-34) 09/14/17 15:19 - Constitutional Appears: Non-toxic - Head Exam Head Exam: NORMAL INSPECTION - Eye Exam Eye Exam: Conjunctival injection - ENT Exam ENT Exam: Mucous Membranes Moist - Neck Exam Neck Exam: Full ROM - Respiratory Exam Respiratory Exam: Clear to Ausculation Bilateral - Cardiovascular Exam Cardiovascular Exam: REGULAR RHYTHM - GI/Abdominal Exam GI & Abdominal Exam: Soft - Back Exam Back Exam: NORMAL INSPECTION - Psychiatric Exam Psychiatric exam: Normal Affect - Skin Skin Exam: Normal Color Assessment and Plan - Assessment and Plan (Free Text) Assessment: abd pain gastritis esrf dm cad improved Plan: d/c home todaywith home servise
[2017-09-19 22:52] VITALS: RESP 20; TEMP 97.6
== END 2017-09-19 21:06 | disposition home or self-care (01) | DRG 551 ==
LOC: C.ER 13:45 → C.9E 17:34 → C.6T 18:27 → OBSVTOIN 09-16 15:43
PROVIDERS: ADMIT Internal Medicine; ATTEND Internal Medicine
PROC: 5A1D70Z Performance of Urinary Filtration, Intermittent, Less than 6 Hours Per Day (ICD-10-PCS; principal; 2017-09-19)
DX: K29.70 Gastritis, unspecified, without bleeding (principal); I50.30 Unspecified diastolic (congestive) heart failure; I47.2 Ventricular tachycardia; I13.2 Hypertensive heart and chronic kidney disease with heart failure and with stage 5 chronic kidney disease, or end stage renal disease; K92.0 Hematemesis; E11.43 Type 2 diabetes mellitus with diabetic autonomic (poly)neuropathy; E11.22 Type 2 diabetes mellitus with diabetic chronic kidney disease; I48.91 Unspecified atrial fibrillation; K31.84 Gastroparesis; N18.6 End stage renal disease; I48.92 Unspecified atrial flutter; E11.65 Type 2 diabetes mellitus with hyperglycemia; J44.9 Chronic obstructive pulmonary disease, unspecified; I37.0 Nonrheumatic pulmonary valve stenosis; E87.6 Hypokalemia; F64.9 Gender identity disorder, unspecified; N25.81 Secondary hyperparathyroidism of renal origin; G30.9 Alzheimer's disease, unspecified; F02.80 Dementia in other diseases classified elsewhere, unspecified severity, without behavioral disturbance, psychotic disturbance, mood disturbance, and anxiety; Z99.2 Dependence on renal dialysis; Z79.4 Long term (current) use of insulin; E78.00 Pure hypercholesterolemia, unspecified; H54.8 Legal blindness, as defined in USA; Z95.1 Presence of aortocoronary bypass graft; Q98.4 Klinefelter syndrome, unspecified; I25.10 Atherosclerotic heart disease of native coronary artery without angina pectoris; D63.8 Anemia in other chronic diseases classified elsewhere; Z91.19 Patient's noncompliance with other medical treatment and regimen

== ENCOUNTER 2017-09-21 18:26 | Emergency (ER) | payer OTHER ==
[2017-09-21 18:26] VITALS: PULSE 66; BMI 18.8
[2017-09-21 18:54] VITALS: TEMP 98.2
[2017-09-21 19:22] VITALS: O2SAT 100
--- NOTE | 2017-09-21 19:33 | C.PDOC ---
History Of Present Illness Patient presents to the ER with a complaint of constipation for the past 6-7 days. Patient states he has not been able to have a bowel movement at all. He had dialysis today for 2.5 hours; denies fever or chills. Time Seen by Provider: 09/21/17 19:32 Chief Complaint (Nursing): GI Problem History Per: Patient History/Exam Limitations: no limitations Onset/Duration Of Symptoms: Days Current Symptoms Are (Timing): Still Present Severity: Moderate Pain Scale Rating Of: 4 Associated Symptoms: Constipation. denies: Fever, Chills Exacerbating Factors: None Alleviating Factors: None Recent travel outside of the [place]: No Past Medical History Reviewed: Historical Data, Nursing Documentation, Vital Signs Vital Signs: Last Vital Signs Temp 98.2 F 09/21/17 18:45 Pulse 70 09/21/17 21:41 Resp 21 09/21/17 21:41 BP 163/73 H 09/21/17 21:41 Pulse Ox 100 09/21/17 21:41 - Medical History PMH: Alzheimer's Disease, Anemia, Anxiety, Arthritis, Asthma, Atrial Fibrillation, Bronchitis, CAD, Cardia Arrhythmia, CHF, COPD, CVA, Depression, Diabetes, Deep Vein Thrombosis, Gastritis, Gastrointestinal Ulcer, Gall Bladder Disease, HTN, Hypercholesterolemia, Hypothyroidism, Pneumonia, End Stage Renal Disease, Chronic Kidney Disease, Seizures Surgical History: CABG (12/2009), Cholecystectomy (2011), Coronary Stent - [facility] (09/16/17) ABDOMINAL WALL SINOGRAM (12/31/13) C.A.T. SCAN OF ABDOMEN (10/31/13) CENTRAL VENOUS CATHETER PLACEMENT WITH GUIDANCE (02/10/15) CHANGE OTHER DEVICE IN TRUNK SUBCU/FASCIA, FEED IN WORKER APPROACH (06/01/17) DILATE R ANT TIB ART W DRUG-ELUT INTRALUM, PERC (08/12/15) DILATION OF LEFT FEMORAL ARTERY, PERCUTANEOUS APPROACH (07/04/16) DILATION OF RIGHT FEMORAL ARTERY, PERCUTANEOUS APPROACH (08/12/15) DILATION OF RIGHT POPLITEAL ARTERY, PERCUTANEOUS APPROACH (08/12/15) DX ULTRASOUND-HEART (01/05/13) ENTERAL INFUSION OF CONCENTRATED NUT. SUBSTANCES (06/28/13) EXCIS DEBRIDE OF WOUND, INFECT, OR BURN (08/03/14) EXCISION OF STOMACH, ENDO, DIAGN (03/03/17) EXTIRPATION OF MATTER FROM L FEM ART, PERC APPROACH (07/04/16) EXTIRPATION OF MATTER FROM R FEM ART, PERC APPROACH (08/12/15) EXTIRPATION OF MATTER FROM R POPL ART, PERC APPROACH (08/12/15) FLUOROSCOPY OF L LOW EXTREM ART USING L OSM CONTRAST (08/12/15) FLUOROSCOPY OF R LOW EXTREM ART USING L OSM CONTRAST (08/12/15) FLUOROSCOPY OF RIGHT JUGULAR VEINS, GUIDANCE (06/01/17) FREE SKIN GRAFT NEC (08/03/14) HEAD SOFT TISS X-RAY NEC (04/15/13) HEMODIALYSIS (04/28/15) INCIS W REM OF FORIEGN BODY OR DEV FROM SKIN & SUBCUT TISSUE (08/08/13) INSERT INFUSION DEV IN R INT JUGULAR VEIN, PERC (06/01/17) INSERTION OF INFUSION DEV INTO R SUBCLAV VEIN, PERC APPROACH (01/19/16) INSERTION OF INFUSION DEV INTO SUP VENA CAVA, PERC APPROACH (05/17/17) INSPECTION OF UPPER INTESTINAL TRACT, ENDO (03/03/17) INTRODUCE OF OTH THROMBOLYTIC INTO PERIPH ART, PERC APPROACH (08/12/15) LAPAROSCOPIC CHOLECYSTECTOMY (09/21/13) LOC EXC LES METATAR/TAR (06/01/14) PACKED CELL TRANSFUSION (06/01/14) PERCUTAN LIVER ASPIRAT (12/31/13) PERFORMANCE OF URINARY FILTRATION, MULTIPLE (05/17/17) PERFORMANCE OF URINARY FILTRATION, SINGLE (12/18/16) SKIN & SUBQ INCISION NEC (10/24/14) TETANUS TOXOID ADMINIST (06/13/14) TRANSFUSE NONAUT RED BLOOD CELLS IN PERIPH VEIN, PERC (04/09/17) ULTRASONOGRAPHY OF RIGHT AND LEFT HEART (04/09/17) ULTRASONOGRAPHY OF SUPERIOR VENA CAVA, GUIDANCE (02/20/17) VENOUS CATHETERIZATION FOR RENAL DIALYSIS (08/08/13) VENOUS CATHETERIZATION NEC (04/30/13) Family History: States: No Known Family Hx - Social History Hx Tobacco Use: No Hx Alcohol Use: No Hx Substance Use: No - Immunization History Hx Tetanus Toxoid Vaccination: Yes Hx Influenza Vaccination: Yes Hx Pneumococcal Vaccination: Yes Review Of Systems Constitutional: Negative for: Fever, Chills Cardiovascular: Negative for: Chest Pain Respiratory: Negative for: Cough Gastrointestinal: Positive for: Constipation. Negative for: Nausea, Vomiting Physical Exam - Physical Exam Appears: Non-toxic Skin: Warm, Dry Head: Normacephalic Eye(s): bilateral: Other (Blind) Oral Mucosa: Moist Chest: No Tenderness, Other (Right sided dialysis shunt) Cardiovascular: Rhythm Regular Respiratory: No Rales, No Rhonchi, No Wheezing Gastrointestinal/Abdominal: Soft, No Tenderness Extremity: Other (Bilateral BKA) Neurological/Psych: Oriented x3 ED Course And Treatment O2 Sat by Pulse Oximetry: 100 (Room air) Pulse Ox Interpretation: Normal - Radiology CXR: Interpreted by Me, Viewed By Me CXR Interpretation: Yes: Other (cabg, shunt r chest). No: Infiltrates, Fracture - Other Rad obstr X-Ray: Interpreted by Me, Viewed By Me Interpretation: lots of stool , no free air Progress Note: Obstructive series ordered. Reevaluation Time: 22:05 Reassessment Condition: Improved Disposition Counseled Patient/Family Regarding: Studies Performed, Diagnosis, Need For Followup, Rx Given - Disposition Referrals: Sybil Li MD [Staff Provider] - Disposition: HOME/ ROUTINE Disposition Time: 19:33 Condition: FAIR Prescriptions: Polyethylene Glycol 3350 [Miralax] 17 gm PO DAILY #270 ml Instructions: Constipation (DC) Forms: [email or web address] (Yoruba) - Clinical Impression Clinical Impression: Constipation - Scribe Statement The provider has reviewed the documentation as recorded by the Scribrigoberto Leavitt All medical record entries made by the Scribe were at my direction and personally dictated by me. I have reviewed the chart and agree that the record accurately reflects my personal performance of the history, physical exam, medical decision making, and the department course for this patient. I have also personally directed, reviewed, and agree with the discharge instructions and disposition.
[2017-09-21] MEDS ORDERED: Magnesium Citrate Oral SOL (300 ml) PO ONE (22:09)
[2017-09-21] MEDS ORDERED: Magnesium Citrate Oral SOL (300 ml) ONE (22:21)
[2017-09-22 00:35] VITALS: BP 198/80; PULSE 69; RESP 15
--- NOTE | 2017-09-22 10:48 | RAD ---
PROCEDURE: Radiographs of the chest and abdomen HISTORY: abd pain, constipation COMPARISON: No prior. TECHNIQUE: AP radiograph of the chest, with supine radiograph of the abdomen. FINDINGS: CHEST: Lungs: Clear. Cardiovascular: Status post CABG. Normal heart size. Right tunneled central venous dialysis catheter. No congestive change. Pleura: No pleural fluid. No pneumothorax. Other findings: None. ABDOMEN AND PELVIS: Bowel: Moderate retained feces. No evidence of bowel obstruction. No free intraperitoneal air. Bones: Unremarkable. Other findings: None. IMPRESSION: No evidence of bowel obstruction. Moderate retained feces. No pulmonary infiltrate.
== END 2017-09-22 00:39 | disposition home or self-care (01) ==
LOC: C.ER 18:26
DX: K59.00 Constipation, unspecified (principal)

== ENCOUNTER 2017-09-23 19:20 | Emergency (ER) | payer OTHER ==
[2017-09-23 19:20] VITALS: PULSE 66; BMI 18.8
[2017-09-23 19:53] LABS: BASO # 0.1 K/uL (0.0-0.2); EOS # 0.3 K/uL (0.0-0.7); MONO # 0.5 K/uL (0.0-0.8); RBC 3.98 Mil/uL (4.40-5.90); RED CELL DISTRIBUTION WIDTH 20.9 % (11.5-14.5); WHITE BLOOD COUNT 10.2 K/uL (4.8-10.8)
[2017-09-23 19:58] LABS: BASO % 0.9 % (0.0-2.0); EOS % 2.9 % (0.0-4.0); LYMPH # 2.6 K/uL (1.0-4.3); LYMPH % 25.5 % (20.0-40.0); MEAN CELL VOLUME 91.9 fL (80.0-94.0); MEAN CORPUSCULAR HEMOGLOBIN 30.4 pg (27.0-31.0); MEAN CORPUSCULAR HGB CONC 33.1 g/dL (33.0-37.0); MEAN PLATELET VOLUME 8.7 fL (7.2-11.7); MONO % 5.1 % (0.0-10.0); NEUT # 6.7 K/uL (1.8-7.0); NEUT % 65.6 % (50.0-75.0); NRBC % 0.1 % (0.0-2.0)
[2017-09-23 19:59] LABS: HEMOGLOBIN 12.1 g/dL (12.0-18.0)
[2017-09-23 20:02] LABS: INR 1.1; PROTHROMBIN TIME 11.8 SECONDS (9.7-12.2)
[2017-09-23 20:04] LABS: VENOUS BLOOD GAS BASE EXCESS -1.7 mmol/L (0.0-2.0); VENOUS BLOOD GAS PCO2 61 mmHg (40-60); VENOUS BLOOD GAS PO2 29 mm/Hg (30-55); VENOUS BLOOD PH 7.25 (7.32-7.43)
--- NOTE | 2017-09-23 20:11 | C.PDOC ---
History Of Present Illness 37yo male with extensive medical history including [place] 1 year ago, 2 cardiac stents placed [place] [facility], diabetes, HTN, seizures, on renal dialysis for the past 7 years with last dialysis on 3 days ago. Patient states his last dialysis session was only 2 hours and not 3 because his abdomen has been distended due to 8 days of constipation. He usually goes to dialysis on Saturday, and Saturday. Patient's access is in the right subclavian shiley. Patient is also status post bilateral BKA. Time Seen by Provider: 09/23/17 19:29 Chief Complaint (Nursing): Chest Pain History Per: Patient History/Exam Limitations: no limitations Onset/Duration Of Symptoms: Days Current Symptoms Are (Timing): Still Present Past Medical History Reviewed: Historical Data, Nursing Documentation, Vital Signs Vital Signs: Last Vital Signs Temp 98.2 F 09/24/17 06:01 Pulse 75 09/24/17 06:01 Resp 20 09/24/17 06:01 BP 162/74 H 09/24/17 06:01 Pulse Ox 98 09/24/17 06:01 - Medical History PMH: Alzheimer's Disease, Anemia, Anxiety, Arthritis, Asthma, Atrial Fibrillation, Bronchitis, CAD, Cardia Arrhythmia, CHF, COPD, CVA, Depression, Diabetes, Deep Vein Thrombosis, Gastritis, Gastrointestinal Ulcer, Gall Bladder Disease, HTN, Hypercholesterolemia, Hypothyroidism, Pneumonia, End Stage Renal Disease, Chronic Kidney Disease, Seizures Denies: Hyperthyroidism, Sexually Transmitted Disease Surgical History: CABG (12/2009), Cholecystectomy (2011), Coronary Stent - [facility] (09/16/17) ABDOMINAL WALL SINOGRAM (12/31/13) C.A.T. SCAN OF ABDOMEN (10/31/13) CENTRAL VENOUS CATHETER PLACEMENT WITH GUIDANCE (02/10/15) CHANGE OTHER DEVICE IN TRUNK SUBCU/FASCIA, WORK CAR OPERATOR APPROACH (06/01/17) DILATE R ANT TIB ART W DRUG-ELUT INTRALUM, PERC (08/12/15) DILATION OF LEFT FEMORAL ARTERY, PERCUTANEOUS APPROACH (07/04/16) DILATION OF RIGHT FEMORAL ARTERY, PERCUTANEOUS APPROACH (08/12/15) DILATION OF RIGHT POPLITEAL ARTERY, PERCUTANEOUS APPROACH (08/12/15) DX ULTRASOUND-HEART (01/05/13) ENTERAL INFUSION OF CONCENTRATED NUT. SUBSTANCES (06/28/13) EXCIS DEBRIDE OF WOUND, INFECT, OR BURN (08/03/14) EXCISION OF STOMACH, ENDO, DIAGN (03/03/17) EXTIRPATION OF MATTER FROM L FEM ART, PERC APPROACH (07/04/16) EXTIRPATION OF MATTER FROM R FEM ART, PERC APPROACH (08/12/15) EXTIRPATION OF MATTER FROM R POPL ART, PERC APPROACH (08/12/15) FLUOROSCOPY OF L LOW EXTREM ART USING L OSM CONTRAST (08/12/15) FLUOROSCOPY OF R LOW EXTREM ART USING L OSM CONTRAST (08/12/15) FLUOROSCOPY OF RIGHT JUGULAR VEINS, GUIDANCE (06/01/17) FREE SKIN GRAFT NEC (08/03/14) HEAD SOFT TISS X-RAY NEC (04/15/13) HEMODIALYSIS (04/28/15) INCIS W REM OF FORIEGN BODY OR DEV FROM SKIN & SUBCUT TISSUE (08/08/13) INSERT INFUSION DEV IN R INT JUGULAR VEIN, PERC (06/01/17) INSERTION OF INFUSION DEV INTO R SUBCLAV VEIN, PERC APPROACH (01/19/16) INSERTION OF INFUSION DEV INTO SUP VENA CAVA, PERC APPROACH (05/17/17) INSPECTION OF UPPER INTESTINAL TRACT, ENDO (03/03/17) INTRODUCE OF OTH THROMBOLYTIC INTO PERIPH ART, PERC APPROACH (08/12/15) LAPAROSCOPIC CHOLECYSTECTOMY (09/21/13) LOC EXC LES METATAR/TAR (06/01/14) PACKED CELL TRANSFUSION (06/01/14) PERCUTAN LIVER ASPIRAT (12/31/13) PERFORMANCE OF URINARY FILTRATION, MULTIPLE (05/17/17) PERFORMANCE OF URINARY FILTRATION, SINGLE (12/18/16) SKIN & SUBQ INCISION NEC (10/24/14) TETANUS TOXOID ADMINIST (06/13/14) TRANSFUSE NONAUT RED BLOOD CELLS IN PERIPH VEIN, PERC (04/09/17) ULTRASONOGRAPHY OF RIGHT AND LEFT HEART (04/09/17) ULTRASONOGRAPHY OF SUPERIOR VENA CAVA, GUIDANCE (02/20/17) VENOUS CATHETERIZATION FOR RENAL DIALYSIS (08/08/13) VENOUS CATHETERIZATION NEC (04/30/13) Family History: States: No Known Family Hx - Social History Hx Tobacco Use: No Hx Alcohol Use: No Hx Substance Use: No - Immunization History Hx Tetanus Toxoid Vaccination: Yes Hx Influenza Vaccination: Yes Hx Pneumococcal Vaccination: Yes Review Of Systems Except As Marked, All Systems Reviewed And Found Negative. Cardiovascular: Positive for: Chest Pain, Palpitations Physical Exam - Physical Exam Appears: Non-toxic Skin: Normal Color, Warm Head: Atraumatic, Normacephalic Eye(s): right: Normal Inspection, PERRL, EOMI, left: Other (left eye with permanent damages) Oral Mucosa: Moist Neck: Supple Cardiovascular: Rhythm Regular, Other (right subclavian shiley in place) Respiratory: Normal Breath Sounds Neurological/Psych: Oriented x3, Normal Speech ED Course And Treatment - Laboratory Results Result Diagrams: 09/23/17 19:47 09/23/17 20:41 ECG: Interpreted By Me, Viewed By Me ECG Rhythm: Sinus Rhythm ECG Interpretation: Abnormal Interpretation Of ECG: Sinus rhythm with PAC in [facility]. [place] 176. QRS 124. QT -QTC 408 473. T-Wave inversions 1 AVL Rate From EC O2 Sat by Pulse Oximetry: 98 (RA) Pulse Ox Interpretation: Normal - Radiology CXR: Interpreted by Me, Viewed By Me CXR Interpretation: Yes: Cardiomegaly Medical Decision Making Medical Decision Making: Plan: -- Labs -- CXR -- Fentanyl 50mcg Time: 2017 CBC 10.2 Hemoglobin 12.1 Blood sanaz 7.25-61-29 Venous blood potassium 9.8, will wait on chemistry. Time: 2101 Serum potassium 4.9, venous gas incorrect BUN Creatining 51/6.1 Time: 2154 Resting comfortably in bed. 1st Troponin negative and 2nd to be performed in 3 hours. Time: 2 Patient pending troponin. Resting comfortably. Time: [address] Li (PMD), who will follow up Severe extensive cardiac cp no other options except medical therapy comf fu with office pt rhett corona requesting dilaudid. he was told he will not get dilaudid here. Disposition Discussed With : Sybil Li Doctor Will See Patient In The: Office Counseled Patient/Family Regarding: Diagnosis, Need For Followup - Disposition Referrals: Sybil Li MD [Staff Provider] - Disposition: HOME/ ROUTINE Disposition Time: 01:17 Condition: STABLE Additional Instructions: return if symptoms worsen Instructions: Chest Pain (ED) Forms: General Discharge Instructions, [facility] (Nigerian) - Clinical Impression Clinical Impression: Precordial pain - Scribe Statement The provider has reviewed the documentation as recorded by the Fabiola Allen Provider Attestation: All medical record entries made by the Fabiola were at my direction and personally dictated by me. I have reviewed the chart and agree that the record accurately reflects my personal performance of the history, physical exam, medical decision making, and the department course for this patient. I have also personally directed, reviewed, and agree with the discharge instructions and disposition.
[2017-09-23 20:56] LABS: ALB/GLOB RATIO 1.1 (1.0-2.1); ALBUMIN 4.2 g/dL (3.5-5.0); ALT/SGPT 17 U/L (21-72); AST/SGOT 22 U/L (17-59); BLOOD UREA NITROGEN 51 mg/dL (9-20); CALCIUM 8.6 mg/dl (8.6-10.4); GFR AFRICAN-AMERICAN 13; GFR NON-AFRICAN AMERICAN 10
[2017-09-23 21:26] LABS: B-TYPE NATRIURETIC PEPTIDE 60900 pg/mL (0-450)
[2017-09-23 23:47] VITALS: RESP 20; TEMP 98.2
[2017-09-24 06:03] VITALS: BP 162/74; PULSE 75; O2SAT 98
--- NOTE | 2017-09-24 08:39 | RAD ---
Chest x-ray single frontal view History: Sepsis. Comparison: 08/22/2017 Findings: Persistent patchy increased markings at the left lung base which may represent residual atelectasis and or infiltrate. Overall this appears improved since the prior study. Lines and tubes in stable position. Status post median sternotomy. Mild cardiomegaly. Impression: Persistent patchy increased markings at the left lung base which may represent residual atelectasis and or infiltrate. Overall this appears improved since the prior study.
--- NOTE | 2017-09-24 23:07 | CARD ---
APPROVED REPORT EKG Measurement Heart [id number] MT 176P [id number] <Conclusion> Sinus rhythm with premature atrial complexes in a pattern of bigeminy Nonspecific intraventricular conduction delay Marked ST abnormality, possible lateral subendocardial injury Abnormal ECG
== END 2017-09-24 08:13 | disposition home or self-care (01) ==
LOC: C.ER 19:20
DX: R07.2 Precordial pain (principal); G30.9 Alzheimer's disease, unspecified; F02.80 Dementia in other diseases classified elsewhere, unspecified severity, without behavioral disturbance, psychotic disturbance, mood disturbance, and anxiety; I48.91 Unspecified atrial fibrillation; I10 Essential (primary) hypertension; E11.9 Type 2 diabetes mellitus without complications; D64.9 Anemia, unspecified
CPT/HCPCS: 71045; 80053; 82803; 82948; 83735; 83880; 84100; 84484; 85025; 85610; 85730; 93005; 96374; 99285; J3010

== ENCOUNTER 2017-09-24 12:33 | Emergency (ER) | payer OTHER ==
[2017-09-24 12:34] VITALS: PULSE 66; BMI 18.8
--- NOTE | 2017-09-24 13:28 | C.PDOC ---
History Of Present Illness 37 y/o male brought to ED by EMS from home with complaints of palpitations. Patient was discharged from ED less than 6 hours ago after overnight evaluation fort same symptoms. Patient has multiple prior ED visits for pain issues and palpitations. Patient is known to be on chronic narcotics and has no other complaints at this time. Time Seen by Provider: 09/24/17 13:24 Chief Complaint (Nursing): Pain, Chronic History Per: Patient History/Exam Limitations: no limitations Onset/Duration Of Symptoms: Hrs Current Symptoms Are (Timing): Still Present Past Medical History Reviewed: Historical Data, Nursing Documentation, Vital Signs Vital Signs: Last Vital Signs Temp 98.8 F 09/24/17 21:15 Pulse 71 09/24/17 21:15 Resp 20 09/24/17 21:15 BP 149/68 09/24/17 21:15 Pulse Ox 99 09/24/17 21:15 - Medical History PMH: Alzheimer's Disease, Anemia, Anxiety, Arthritis, Asthma, Atrial Fibrillation, Bronchitis, CAD, Cardia Arrhythmia, CHF, COPD, CVA, Depression, Diabetes, Deep Vein Thrombosis, Gastritis, Gastrointestinal Ulcer, Gall Bladder Disease, HTN, Hypercholesterolemia, Hypothyroidism, Pneumonia, End Stage Renal Disease, Chronic Kidney Disease, Seizures Surgical History: CABG (12/2009), Cholecystectomy (2011), Coronary Stent - [facility] (09/16/17) ABDOMINAL WALL SINOGRAM (12/31/13) C.A.T. SCAN OF ABDOMEN (10/31/13) CENTRAL VENOUS CATHETER PLACEMENT WITH GUIDANCE (02/10/15) CHANGE OTHER DEVICE IN TRUNK SUBCU/FASCIA, WEB COMMUNICATIONS SPECIALIST APPROACH (06/01/17) DILATE R ANT TIB ART W DRUG-ELUT INTRALUM, PERC (08/12/15) DILATION OF LEFT FEMORAL ARTERY, PERCUTANEOUS APPROACH (07/04/16) DILATION OF RIGHT FEMORAL ARTERY, PERCUTANEOUS APPROACH (08/12/15) DILATION OF RIGHT POPLITEAL ARTERY, PERCUTANEOUS APPROACH (08/12/15) DX ULTRASOUND-HEART (01/05/13) ENTERAL INFUSION OF CONCENTRATED NUT. SUBSTANCES (06/28/13) EXCIS DEBRIDE OF WOUND, INFECT, OR BURN (08/03/14) EXCISION OF STOMACH, ENDO, DIAGN (03/03/17) EXTIRPATION OF MATTER FROM L FEM ART, PERC APPROACH (07/04/16) EXTIRPATION OF MATTER FROM R FEM ART, PERC APPROACH (08/12/15) EXTIRPATION OF MATTER FROM R POPL ART, PERC APPROACH (08/12/15) FLUOROSCOPY OF L LOW EXTREM ART USING L OSM CONTRAST (08/12/15) FLUOROSCOPY OF R LOW EXTREM ART USING L OSM CONTRAST (08/12/15) FLUOROSCOPY OF RIGHT JUGULAR VEINS, GUIDANCE (06/01/17) FREE SKIN GRAFT NEC (08/03/14) HEAD SOFT TISS X-RAY NEC (04/15/13) HEMODIALYSIS (04/28/15) INCIS W REM OF FORIEGN BODY OR DEV FROM SKIN & SUBCUT TISSUE (08/08/13) INSERT INFUSION DEV IN R INT JUGULAR VEIN, PERC (06/01/17) INSERTION OF INFUSION DEV INTO R SUBCLAV VEIN, PERC APPROACH (01/19/16) INSERTION OF INFUSION DEV INTO SUP VENA CAVA, PERC APPROACH (05/17/17) INSPECTION OF UPPER INTESTINAL TRACT, ENDO (03/03/17) INTRODUCE OF OTH THROMBOLYTIC INTO PERIPH ART, PERC APPROACH (08/12/15) LAPAROSCOPIC CHOLECYSTECTOMY (09/21/13) LOC EXC LES METATAR/TAR (06/01/14) PACKED CELL TRANSFUSION (06/01/14) PERCUTAN LIVER ASPIRAT (12/31/13) PERFORMANCE OF URINARY FILTRATION, MULTIPLE (05/17/17) PERFORMANCE OF URINARY FILTRATION, SINGLE (12/18/16) SKIN & SUBQ INCISION NEC (10/24/14) TETANUS TOXOID ADMINIST (06/13/14) TRANSFUSE NONAUT RED BLOOD CELLS IN PERIPH VEIN, PERC (04/09/17) ULTRASONOGRAPHY OF RIGHT AND LEFT HEART (04/09/17) ULTRASONOGRAPHY OF SUPERIOR VENA CAVA, GUIDANCE (02/20/17) VENOUS CATHETERIZATION FOR RENAL DIALYSIS (08/08/13) VENOUS CATHETERIZATION NEC (04/30/13) Family History: States: No Known Family Hx - Social History Hx Tobacco Use: No Hx Alcohol Use: No Hx Substance Use: No - Immunization History Hx Tetanus Toxoid Vaccination: Yes Hx Influenza Vaccination: Yes Hx Pneumococcal Vaccination: Yes Review Of Systems Constitutional: Negative for: Fever, Chills Cardiovascular: Positive for: Palpitations. Negative for: Chest Pain Respiratory: Negative for: Cough, Shortness of Breath Gastrointestinal: Negative for: Nausea, Vomiting Skin: Negative for: Rash Neurological: Negative for: Weakness, Numbness Physical Exam - Physical Exam Appears: Chronically Ill, Other (blind) Skin: Warm, Dry, No Rash Head: Atraumatic, Normacephalic Eye(s): bilateral: Normal Inspection Oral Mucosa: Moist Neck: Normal ROM, Supple Chest: Other (Right upper chest wall catheter) Cardiovascular: Rhythm Regular Respiratory: Normal Breath Sounds, No Rales, No Rhonchi, No Wheezing Gastrointestinal/Abdominal: Soft, No Tenderness, No Guarding, No Rebound Back: No CVA Tenderness Extremity: Other (Bilateral BKA) Neurological/Psych: Oriented x3 ED Course And Treatment O2 Sat by Pulse Oximetry: 94 (RA) Progress Note: Discussed with Dr. Li, who agrees with plan to discharge patient and have him follow up with her at the office. Medical Decision Making Medical Decision Making: discharged from ED w/u with normal eval < 12 hrs ago, pt returns from home c/o palpitations, but none at this time. 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 Last night's eval significant for normal w/u (? if bigeminy was NSR, but normal now) and persistently requesting Dilaudid for chronic pains. Dispo was to f/u with PMD, which pt has not. Pt well known to this MD from prior evals, seems @ baseline, no pain, no palps now, normal cardiac exam and EKGNSR 76 Defer repeating an extensive workup < 12 hours later, and f/u w PMD- pt's insight may be altered due to underlying dementia. Disposition Doctor Will See Patient In The: Office Counseled Patient/Family Regarding: Studies Performed, Diagnosis - Disposition Referrals: Sybil Li MD [Staff Provider] - Disposition: HOME/ ROUTINE Disposition Time: 13:39 Condition: GOOD Additional Instructions: Please follow-up with Dr. Li Return to ED for any significant changes or worstening of your condition(s). Instructions: Palpitations (ED) Forms: [facility] (Cymraes) - Clinical Impression Clinical Impression: Palpitations - Scribe Statement The provider has reviewed the documentation as recorded by the Scribrigoberto Tsai All medical record entries made by the Scribe were at my direction and personally dictated by me. I have reviewed the chart and agree that the record accurately reflects my personal performance of the history, physical exam, medical decision making, and the department course for this patient. I have also personally directed, reviewed, and agree with the discharge instructions and disposition.
[2017-09-24 21:15] VITALS: RESP 20
[2017-09-24 22:53] VITALS: BP 150/90; PULSE 88; TEMP 97.2; O2SAT 98
--- NOTE | 2017-09-25 16:26 | CARD ---
APPROVED REPORT EKG Measurement Heart [id number] <Conclusion> Normal sinus rhythm Left ventricular hypertrophy with QRS widening and repolarization abnormality Abnormal ECG
== END 2017-09-24 22:53 | disposition home or self-care (01) ==
LOC: C.ER 12:33
DX: R00.2 Palpitations (principal); I10 Essential (primary) hypertension

== ENCOUNTER 2017-10-02 21:46 | Inpatient (IN) | payer OTHER ==
[2017-10-02 21:47] VITALS: PULSE 66; BMI 18.8
[2017-10-02 22:40] LABS: BASO # 0.1 K/uL (0.0-0.2); BASO % 0.9 % (0.0-2.0); EOS # 0.2 K/uL (0.0-0.7); EOS % 2.7 % (0.0-4.0); HEMOGLOBIN 10.7 g/dL (12.0-18.0); LYMPH # 2.7 K/uL (1.0-4.3); LYMPH % 29.9 % (20.0-40.0); MEAN CELL VOLUME 93.4 fL (80.0-94.0); MEAN CORPUSCULAR HEMOGLOBIN 31.5 pg (27.0-31.0); MEAN CORPUSCULAR HGB CONC 33.7 g/dL (33.0-37.0); MEAN PLATELET VOLUME 9.9 fL (7.2-11.7); MONO # 0.6 K/uL (0.0-0.8); MONO % 7.1 % (0.0-10.0); NEUT # 5.4 K/uL (1.8-7.0); NEUT % 59.4 % (50.0-75.0); RBC 3.4 Mil/uL (4.40-5.90); RED CELL DISTRIBUTION WIDTH 18.4 % (11.5-14.5); WHITE BLOOD COUNT 9.1 K/uL (4.8-10.8)
--- NOTE | 2017-10-02 22:41 | C.PDOC ---
History Of Present Illness Patient is a 37 y/o male brought to ED with a complaint of chest pain for the last 1 hour. Patient was recently discharged after a 3 day admission at [facility] for similar complaints. No f/c/n/v Dull aching discomfort . Pt received by ems 3 sl ntg as well as 324 mg po asa Time Seen by Provider: 10/02/17 22:41 Chief Complaint (Nursing): Chest Pain History Per: Patient History/Exam Limitations: no limitations Onset/Duration Of Symptoms: Hrs (1 hour) Current Symptoms Are (Timing): Still Present Context: Other Severity: Moderate Pain Scale Rating Of: 4 Quality: Dull, Tightness Associated Symptoms: denies: Nausea, Dyspnea Modifying Factors: None Nitro Therapy Administered: 3, Per EMS Recent travel outside of the [place]: No Additional History Per: EMS Past Medical History Reviewed: Historical Data, Nursing Documentation, Vital Signs Vital Signs: Last Vital Signs Temp 98.0 F 10/02/17 21:52 Pulse 80 10/02/17 21:52 Resp 18 10/02/17 21:52 BP 196/101 H 10/02/17 21:52 Pulse Ox 100 10/02/17 23:59 - Medical History PMH: Alzheimer's Disease, Anemia, Anxiety, Arthritis, Asthma, Atrial Fibrillation, Bronchitis, CAD, Cardia Arrhythmia, CHF, COPD, CVA, Depression, Diabetes, Deep Vein Thrombosis, Gastritis, Gastrointestinal Ulcer, Gall Bladder Disease, HTN, Hypercholesterolemia, Hypothyroidism, Pneumonia, End Stage Renal Disease, Chronic Kidney Disease, Seizures Denies: Hyperthyroidism, Sexually Transmitted Disease Surgical History: CABG (12/2009), Cholecystectomy (2011), Coronary Stent - [facility] (09/16/17) ABDOMINAL WALL SINOGRAM (12/31/13) C.A.T. SCAN OF ABDOMEN (10/31/13) CENTRAL VENOUS CATHETER PLACEMENT WITH GUIDANCE (02/10/15) CHANGE OTHER DEVICE IN TRUNK SUBCU/FASCIA, BELT WEAVER APPROACH (06/01/17) DILATE R ANT TIB ART W DRUG-ELUT INTRALUM, PERC (08/12/15) DILATION OF LEFT FEMORAL ARTERY, PERCUTANEOUS APPROACH (07/04/16) DILATION OF RIGHT FEMORAL ARTERY, PERCUTANEOUS APPROACH (08/12/15) DILATION OF RIGHT POPLITEAL ARTERY, PERCUTANEOUS APPROACH (08/12/15) DX ULTRASOUND-HEART (01/05/13) ENTERAL INFUSION OF CONCENTRATED NUT. SUBSTANCES (06/28/13) EXCIS DEBRIDE OF WOUND, INFECT, OR BURN (08/03/14) EXCISION OF STOMACH, ENDO, DIAGN (03/03/17) EXTIRPATION OF MATTER FROM L FEM ART, PERC APPROACH (07/04/16) EXTIRPATION OF MATTER FROM R FEM ART, PERC APPROACH (08/12/15) EXTIRPATION OF MATTER FROM R POPL ART, PERC APPROACH (08/12/15) FLUOROSCOPY OF L LOW EXTREM ART USING L OSM CONTRAST (08/12/15) FLUOROSCOPY OF R LOW EXTREM ART USING L OSM CONTRAST (08/12/15) FLUOROSCOPY OF RIGHT JUGULAR VEINS, GUIDANCE (06/01/17) FREE SKIN GRAFT NEC (08/03/14) HEAD SOFT TISS X-RAY NEC (04/15/13) HEMODIALYSIS (04/28/15) INCIS W REM OF FORIEGN BODY OR DEV FROM SKIN & SUBCUT TISSUE (08/08/13) INSERT INFUSION DEV IN R INT JUGULAR VEIN, PERC (06/01/17) INSERTION OF INFUSION DEV INTO R SUBCLAV VEIN, PERC APPROACH (01/19/16) INSERTION OF INFUSION DEV INTO SUP VENA CAVA, PERC APPROACH (05/17/17) INSPECTION OF UPPER INTESTINAL TRACT, ENDO (03/03/17) INTRODUCE OF OTH THROMBOLYTIC INTO PERIPH ART, PERC APPROACH (08/12/15) LAPAROSCOPIC CHOLECYSTECTOMY (09/21/13) LOC EXC LES METATAR/TAR (06/01/14) PACKED CELL TRANSFUSION (06/01/14) PERCUTAN LIVER ASPIRAT (12/31/13) PERFORMANCE OF URINARY FILTRATION, MULTIPLE (05/17/17) PERFORMANCE OF URINARY FILTRATION, SINGLE (12/18/16) SKIN & SUBQ INCISION NEC (10/24/14) TETANUS TOXOID ADMINIST (06/13/14) TRANSFUSE NONAUT RED BLOOD CELLS IN PERIPH VEIN, PERC (04/09/17) ULTRASONOGRAPHY OF RIGHT AND LEFT HEART (04/09/17) ULTRASONOGRAPHY OF SUPERIOR VENA CAVA, GUIDANCE (02/20/17) VENOUS CATHETERIZATION FOR RENAL DIALYSIS (08/08/13) VENOUS CATHETERIZATION NEC (04/30/13) Family History: States: No Known Family Hx - Social History Hx Tobacco Use: No Hx Alcohol Use: No Hx Substance Use: No - Immunization History Hx Tetanus Toxoid Vaccination: Yes Hx Influenza Vaccination: Yes Hx Pneumococcal Vaccination: Yes Review Of Systems Constitutional: Negative for: Fever, Chills ENT: Negative for: Throat Pain Cardiovascular: Positive for: Chest Pain Respiratory: Negative for: Shortness of Breath Gastrointestinal: Negative for: Nausea, Vomiting, Abdominal Pain Musculoskeletal: Negative for: Back Pain Skin: Negative for: Rash Neurological: Negative for: Weakness Psych: Negative for: Anxiety Physical Exam - Physical Exam Appears: Non-toxic, Chronically Ill, Other (blind) Skin: Warm, Dry, No Rash Head: Normacephalic Eye(s): bilateral: Other (blind) Oral Mucosa: Moist Neck: Trachea Midline, Supple Chest: Symmetrical, Other (port r chest) Cardiovascular: Rhythm Regular Respiratory: No Rales, No Rhonchi, No Wheezing Gastrointestinal/Abdominal: Soft, No Tenderness, No Distention, No Guarding Back: No CVA Tenderness Extremity: Other (b/l bka) Neurological/Psych: Oriented x3 Gait: Unable To Assess ED Course And Treatment - Laboratory Results Result Diagrams: 10/02/17 22:37 10/02/17 22:55 ECG: Interpreted By Me, Viewed By Me ECG Rhythm: Sinus Rhythm (86), Nonspecific Changes O2 Sat by Pulse Oximetry: 100 Pulse Ox Interpretation: Normal - Radiology CXR: Interpreted by Me, Viewed By Me CXR Interpretation: Yes: Other (cabg, port r chest). No: Infiltrates, Fracture Progress Note: EKG, CXR, and blood work ordered. Disposition Discussed With : [facility] Li [facility] 12:05 AM Doctor Will See Patient In The: Hospital Counseled Patient/Family Regarding: Studies Performed, Diagnosis - Disposition Disposition: HOSPITALIZED Disposition Time: 22:41 Condition: FAIR Forms: [facility] (Welsh) - POA Present On Arrival: Poor Glycemic Control - Clinical Impression Clinical Impression: NSTEMI (non-ST elevated myocardial infarction) - Scribe Statement The provider has reviewed the documentation as recorded by the Scribe Flori Celeste All medical record entries made by the Scribe were at my direction and personally dictated by me. I have reviewed the chart and agree that the record accurately reflects my personal performance of the history, physical exam, medical decision making, and the department course for this patient. I have also personally directed, reviewed, and agree with the discharge instructions and disposition. Decision To Admit - Pt Status Changed To: Hospital Disposition Of: Inpatient - Admit Certification Admit to Inpatient:: After my assessment, the patient will require hospitalization for at least two midnights. This is because of the severity of symptoms shown, intensity of services needed, and/or the medical risk in this patient being treated as an outpatient. - InPatient: Physician Admission Certification: I certify that this patient requires 2 or more midnights of care for the following reason:: After my assessment, the patient will require hospitalization for at least two midnights. This is because of the severity of symptoms shown, intensity of services needed, and/or the medical risk in this patient being treated as an outpatient. - . Bed Request Type: Telemetry Admitting Physician: Sybil Li Patient Diagnosis: NSTEMI (non-ST elevated myocardial infarction)
[2017-10-02 23:13] LABS: PROTHROMBIN TIME 11.5 SECONDS (9.7-12.2)
[2017-10-02 23:20] LABS: ALB/GLOB RATIO 1.2 (1.0-2.1); ALBUMIN 3.9 g/dL (3.5-5.0); CALCIUM 8.4 mg/dl (8.6-10.4)
[2017-10-02 23:51] LABS: CK-MB 0.95 ng/mL (0.0-3.38); TROPONIN I 0.65 ng/mL (0.00-0.120)
[2017-10-03] MEDS ORDERED: HYDROmorphone 1 mg/ml ISec IVP STA (00:05)
[2017-10-03] MEDS ORDERED: (Lantus) Insulin Glargine, Recombinant SC STA (00:27)
[2017-10-03] MEDS ORDERED: (Novolin R) Insulin Human Regular 100 units/ml vial SC ONE (00:30)
[2017-10-03] MEDS ORDERED: (Lantus) Insulin Glargine, Recombinant SC ONE (00:37)
[2017-10-03] MEDS ORDERED: (Novolin R) Insulin Human Regular 100 units/ml vial ONE (00:38)
[2017-10-03] MEDS: Ergocalciferol 50,000 Intl Units Cap PO SCH (01:54)
[2017-10-03] MEDS ORDERED: Albuterol-Ipratrop 3 mg / 0.5 (3 ml) UD IH SCH (04:00)
[2017-10-03] MEDS ORDERED: Dextrose 50% VIAL Inj (50 ml) IV ONE (04:03)
[2017-10-03] MEDS ORDERED: Dextrose 50% SYRINGE Inj (50 ml) IV STA (04:07)
[2017-10-03] MEDS: (Novolin R) Insulin Human Regular 100 units/ml vial SC SCH ×4 (07:45→21:36)
[2017-10-03] MEDS: Multivitamin Vitamin B Complex (Nephro-Vite) Tab PO SCH (08:10)
--- NOTE | 2017-10-03 09:10 | RAD ---
Chest x-ray single frontal view History: Chest pain Comparison: None available. Findings: Right central venous catheter with tip extending into the right atrium. Moderate venous congestion with patchy bibasilar airspace opacities. Cardiomegaly. Status post median sternotomy. Surgical clips the right upper abdomen. Impression: Right central venous catheter with tip extending into the right atrium. Moderate venous congestion with patchy bibasilar airspace opacities. Cardiomegaly. Status post median sternotomy.
[2017-10-03] MEDS ORDERED: Multivitamin Vitamin B Complex (Nephro-Vite) Tab PO SCH (10:00)
[2017-10-03] MEDS: Pantoprazole 40 mg EC Tab PO SCH (10:07)
[2017-10-03] MEDS: POLYETHYLENE GLYCOL 3350 17 GM/Dose PACKET PO SCH (10:08)
--- NOTE | 2017-10-03 14:54 | CP.PCM.CON ---
History of Present Illness - History of Present Illness History of Present Illness: Initial Nephrology Consultation: Assessment: Stable chronic chest pain, diarrhoea Diabetic chronic Kidney Disease (E11.22) Hypertensive Chronic Kidney Disease (I12.0) End stage renal disease (N18.6) dependence on hemodialysis (Z99.2) (TTS) via AVF Anemia (D64.9), Hyperphosphatemia (E83.39), Secondary Hyperparathyroidism (E21.1 ), HTN (I12.0) CAD s/p CABG, diastolic CHF, pA flutter/fib, intra-cardiac thrombus, hx of Heparin induced thrombocytopenia, hx of seizure, blindness Plan: Will plan for dialysis today. Continue with Nephrovite 1 tab/day. PRBC as needed for anemia. will consider Epogen if Hb <10 Continue with phos binders home dose Continue with calcitriol BP control with meds as ordered. Glycemic control, Dialysis consistent diet Further work up/management as per primary team Dose meds/antibiotics (if needed) for ESRD status. Avoid fleets enema/magnesium based laxatives. check stool for c diff Thanks for allowing me to participate in care of your patient. Will follow patient with you. Please call if any Qs Dr Eric Temple Office: [phone] Chief Complaint; chest pain loose stool HPI: Pt is a 37 y/o transgender M with hx of ESRD on hemodialysis (TTS) via permacath, chronic anemia, hyperphosphatemia, secondary hyperparathyroidism, Diabetes Mellitus, hypertension, CAD s/p CABG, diastolic CHF, pA flutter/fib, intra-cardiac thrombus, Heparin induced thrombocytopenia in past presented with complaints of acute on chronic chest pain. pt with frequent and multiple hospitalizations for same. also c/o loose stool c/o chronic chest pain, denies palpitation, c/o chronic shortness of breath ROS: All other negative except as in HPI. c/o loose stool Physical Examination: seen on HD General Appearance: Comfortable, in no acute respiratory distress, co-operative . Vitals reviewed and noted as below Head; Atraumatic, normocephalic ENT: no ulcers no thrush. Tongue is midline. Oropharynx: no rash or ulcers. EYES: Pt is blind both eyes Neck; supple no lymphadenopathy, no thyromegaly or bruit Lungs: Normal respiratory rate/effort. Breath sounds bilateral equal clear Heart: Normal rate. s1s2 normal. No rub or gallop. Extremities: no edema. No varicose veins. has b/l BKA Neurological: Patient is alert, awake and oriented to person, place and time. No focal deficit. Strength bilateral appropriate and equal Skin: Warm and dry. Normal turgor. No rash. Palpitation: Normal elasticity for age Abdomen: Abdomen is soft. Bowel sounds +. There is no abdominal tenderness, no guarding/rigidity or organomegaly Psych: limited insight and has normal affect/mood MSK: no joint tenderness or swelling. Digits and nails normal, no deformity : kidney or bladder not palpable Access: permacath Labs/imaging reviewed. Past medical history, past surgical history, family history, social history, allergy reviewed and noted as below Family Hx: no hx of CKD. Non contributory Past Patient History - Infectious Disease Hx of Infectious Diseases: None - Tetanus Immunizations Tetanus Immunization: >10 years Ago - Past Medical History & Family History Past Medical History?: Yes - Past Social History Smoking Status: Never Smoked - CARDIAC Hx Atrial Fibrillation: Yes Hx Cardia Arrhythmia: Yes Hx Congestive Heart Failure: Yes Hx Hypercholesterolemia: Yes Hx Hypertension: Yes - PULMONARY Hx Asthma: Yes Hx Bronchitis: Yes Hx Chronic Obstructive Pulmonary Disease (COPD): Yes Hx Pneumonia: Yes - NEUROLOGICAL Hx Alzheimer's Disease: Yes Hx Seizures: Yes - HEENT Hx HEENT Problems: Yes Hx Blind: Yes (legally blind) Hx Cataracts: Yes - RENAL Hx Chronic Kidney Disease: Yes Date of Last Dialysis Treatment: 09/28/17 - ENDOCRINE/METABOLIC Hx Hyperthyroidism: No Hx Hypothyroidism: Yes - HEMATOLOGICAL/ONCOLOGICAL Hx Anemia: Yes - INTEGUMENTARY Hx Dermatological Problems: No - MUSCULOSKELETAL/RHEUMATOLOGICAL Hx Arthritis: Yes Hx Falls: No - GASTROINTESTINAL Hx Gall Bladder Disease: Yes Hx Gastritis: Yes - GENITOURINARY/GYNECOLOGICAL Hx Sexually Transmitted Disorders: No - PSYCHIATRIC Hx Anxiety: Yes Hx Depression: Yes Hx Substance Use: No - SURGICAL HISTORY Hx Cholecystectomy: Yes (2011) 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/2009) Hx Coronary Stent: Yes - ANESTHESIA Hx Anesthesia: Yes Hx Anesthesia Reactions: No Hx Malignant Hyperthermia: No Meds Allergies/Adverse Reactions: Allergies Allergy/AdvReac Type Severity Reaction Status Date / Time acetaminophen [From Percocet] Allergy RASH Verified 10/02/17 22:06 atenolol Allergy RASH Verified 10/02/17 22:06 digoxin Allergy RASH Verified 10/02/17 22:06 milk Allergy ITCHING Verified 10/02/17 22:06 morphine Allergy RASH Verified 10/02/17 22:06 oxycodone HCl [From Percocet] Allergy RASH Verified 10/02/17 22:06 - Medications Medications: Current Medications Albuterol/Ipratropium (Duoneb 3 Mg/0.5 Mg (3 Ml) Ud) 3 ml INH RQID [facility] Amiodarone HCl (Cordarone) 200 mg PO DAILY [facility] Last Admin: 10/03/17 10:10 Dose: 200 mg Amlodipine Besylate (Norvasc) 10 mg PO DAILY [facility] Last Admin: 10/03/17 10:08 Dose: Not Given Aspirin (Aspirin Chewable) 81 mg PO DAILY [facility] Last Admin: 10/03/17 10:06 Dose: 81 mg Calcium Carbonate (Oscal) 500 mg PO BID [facility] Last Admin: 10/03/17 10:06 Dose: 500 mg Carvedilol (Coreg) 25 mg PO BID [facility] Last Admin: 10/03/17 10:10 Dose: Not Given Clonidine HCl (Catapres-Tts3 0.3 Mg/24 Hr) 1 patch TD Q7D@1000 [facility] Last Admin: 10/03/17 10:10 Dose: 1 patch Docusate Sodium (Colace) 100 mg PO TID PRN PRN Reason: Constipation Ergocalciferol (Drisdol 50,000 Intl Units Cap) 1 cap PO Q7D [facility] Last Admin: 10/03/17 01:54 Dose: Not Given Hydromorphone HCl (Dilaudid) 1 mg IVP Q6 PRN PRN Reason: Pain, severe (8-10) Last Admin: 10/03/17 10:00 Dose: 1 mg Insulin Glargine (Lantus) 10 unit SC HS [facility] Insulin Human Regular (Novolin R) 0 unit SC ACHS [facility] PRN Reason: Protocol Last Admin: 10/03/17 12:06 Dose: Not Given Isosorbide Mononitrate (Imdur Er) 90 mg PO DAILY [facility] Last Admin: 10/03/17 10:18 Dose: 90 mg Lactulose (Enulose) 20 gm PO DAILY [facility] Last Admin: 10/03/17 10:09 Dose: Not Given Montelukast Sodium (Singulair) 10 mg PO DAILY [facility] Last Admin: 10/03/17 10:07 Dose: 10 mg Ondansetron HCl (Zofran Inj) 4 mg IVP Q6H PRN PRN Reason: Nausea/Vomiting Last Admin: 10/03/17 10:41 Dose: 4 mg Pantoprazole Sodium (Protonix Ec Tab) 40 mg PO DAILY [facility] Last Admin: 10/03/17 10:07 Dose: 40 mg Polyethylene Glycol (Miralax) 17 gm PO DAILY [facility] Last Admin: 10/03/17 10:08 Dose: Not Given Rosuvastatin Calcium (Crestor) 10 mg PO HS [facility] Sertraline HCl (Zoloft) 50 mg PO DAILY [facility] Last Admin: 10/03/17 10:08 Dose: 50 mg Vitamin B Complex/Vit C/Folic Acid (Nephro-Courtney) 1 tab PO 0800 [facility] Last Admin: 10/03/17 08:10 Dose: 1 tab Results - Vital Signs Recent Vital Signs: Last Vital Signs Temp 97.3 F L 10/03/17 12:36 Pulse 73 10/03/17 13:28 Resp 16 10/03/17 13:28 BP 173/101 H 10/03/17 14:36 Pulse Ox 100 10/03/17 12:36 - Labs Result Diagrams: 10/02/17 22:37 10/02/17 22:55 Labs: Laboratory Results - last 24 hr 10/02/17 10/02/17 10/02/17 22:37 22:41 22:55 WBC 9.1 RBC 3.40 L Hgb 10.7 L Hct 31.8 L MCV 93.4 MCH 31.5 H MCHC 33.7 RDW 18.4 H Plt Count 245 MPV 9.9 Neut % (Auto) 59.4 Lymph % (Auto) 29.9 [place] % (Auto) 7.1 Eos % (Auto) 2.7 Baso % (Auto) 0.9 Neut # (Auto) 5.4 Lymph # (Auto) 2.7 [place] # (Auto) 0.6 Eos # (Auto) 0.2 Baso # (Auto) 0.1 PT 11.5 INR 1.0 APTT 33 Sodium 132 Potassium 3.8 Chloride 94 L Carbon Dioxide 21 L Anion Gap 21 H BUN 80 H Creatinine 8.6 H* D Est GFR ( Amer) 9 Est GFR (Non-Af Amer) 7 POC Glucose (mg/dL) Random Glucose 402 H* Calcium 8.4 L Total Bilirubin 0.6 AST 18 ALT 15 L Alkaline Phosphatase 215 H D Total Creatine Kinase 24 L CK-MB (Mass) 0.95 Troponin I 0.6500 H* NT-Pro-B Natriuret Pep 13476 H Total Protein 7.0 Albumin 3.9 Globulin 3.1 Albumin/Globulin Ratio 1.2 10/03/17 10/03/17 10/03/17 03:58 04:02 04:50 WBC RBC Hgb Hct MCV MCH MCHC RDW Plt Count MPV Neut % (Auto) Lymph % (Auto) [place] % (Auto) Eos % (Auto) Baso % (Auto) Neut # (Auto) Lymph # (Auto) [place] # (Auto) Eos # (Auto) Baso # (Auto) PT INR APTT Sodium Potassium Chloride Carbon Dioxide Anion Gap BUN Creatinine Est GFR ( Amer) Est GFR (Non-Af Amer) POC Glucose (mg/dL) 28 L* 28 L* 122 H Random Glucose Calcium Total Bilirubin AST ALT Alkaline Phosphatase Total Creatine Kinase CK-MB (Mass) Troponin I NT-Pro-B Natriuret Pep Total Protein Albumin Globulin Albumin/Globulin Ratio 10/03/17 10/03/17 10/03/17 07:24 11:47 11:49 WBC RBC Hgb Hct MCV MCH MCHC RDW Plt Count MPV Neut % (Auto) Lymph % (Auto) [place] % (Auto) Eos % (Auto) Baso % (Auto) Neut # (Auto) Lymph # (Auto) [place] # (Auto) Eos # (Auto) Baso # (Auto) PT INR APTT Sodium Potassium Chloride Carbon Dioxide Anion Gap BUN Creatinine Est GFR ( Amer) Est GFR (Non-Af Amer) POC Glucose (mg/dL) 70 66 62 L Random Glucose Calcium Total Bilirubin AST ALT Alkaline Phosphatase Total Creatine Kinase CK-MB (Mass) Troponin I NT-Pro-B Natriuret Pep Total Protein Albumin Globulin Albumin/Globulin Ratio 10/03/17 12:25 WBC RBC Hgb Hct MCV MCH MCHC RDW Plt Count MPV Neut % (Auto) Lymph % (Auto) [place] % (Auto) Eos % (Auto) Baso % (Auto) Neut # (Auto) Lymph # (Auto) [place] # (Auto) Eos # (Auto) Baso # (Auto) PT INR APTT Sodium Potassium Chloride Carbon Dioxide Anion Gap BUN Creatinine Est GFR ( Amer) Est GFR (Non-Af Amer) POC Glucose (mg/dL) 107 Random Glucose Calcium Total Bilirubin AST ALT Alkaline Phosphatase Total Creatine Kinase CK-MB (Mass) Troponin I NT-Pro-B Natriuret Pep Total Protein Albumin Globulin Albumin/Globulin Ratio
--- NOTE | 2017-10-03 17:48 | CP.PCM.HP ---
History of Present Illness - History of Present Illness History of Present Illness: pt came to er for chest pain persistant diarhea bs 400 Present on Admission - Present on Admission Any Indicators Present on Admission: Yes Review of Systems - Review of Systems Systems not reviewed;Unavailable: Acuity of Condition - Constitutional Constitutional: Fatigue, Weakness - EENT Ears: As Per HPI Nose/Mouth/Throat: As Per HPI, Dental Pain - Cardiovascular Cardiovascular: Chest Pain at Rest, Chest Pain with Activity - Respiratory Respiratory: Dyspnea - Gastrointestinal Gastrointestinal: Abdominal Pain, Bloating, Cramping, Diarrhea - Genitourinary Genitourinary: As Per HPI - Reproductive: Male Reproductive:Male: As Per HPI - Musculoskeletal Musculoskeletal: As Per HPI - Integumentary Integumentary: As Per HPI - Neurological Neurological: As Per HPI - Psychiatric Psychiatric: As Per HPI - Endocrine Endocrine: As Per HPI Additional Comments: bs was 400 - Hematologic/Lymphatic Hematologic: As Per HPI Past Patient History - Infectious Disease Hx of Infectious Diseases: None - Tetanus Immunizations Tetanus Immunization: >10 years Ago - Past Medical History & Family History Past Medical History?: Yes - Past Social History Smoking Status: Never Smoked - CARDIAC Hx Atrial Fibrillation: Yes Hx Cardia Arrhythmia: Yes Hx Congestive Heart Failure: Yes Hx Hypercholesterolemia: Yes Hx Hypertension: Yes - PULMONARY Hx Asthma: Yes Hx Bronchitis: Yes Hx Chronic Obstructive Pulmonary Disease (COPD): Yes Hx Pneumonia: Yes - NEUROLOGICAL Hx Alzheimer's Disease: Yes Hx Seizures: Yes - HEENT Hx HEENT Problems: Yes Hx Blind: Yes (legally blind) Hx Cataracts: Yes - RENAL Hx Chronic Kidney Disease: Yes Date of Last Dialysis Treatment: 09/28/17 - ENDOCRINE/METABOLIC Hx Hyperthyroidism: No Hx Hypothyroidism: Yes - HEMATOLOGICAL/ONCOLOGICAL Hx Anemia: Yes - INTEGUMENTARY Hx Dermatological Problems: No - MUSCULOSKELETAL/RHEUMATOLOGICAL Hx Arthritis: Yes Hx Falls: No - GASTROINTESTINAL Hx Gall Bladder Disease: Yes Hx Gastritis: Yes - GENITOURINARY/GYNECOLOGICAL Hx Sexually Transmitted Disorders: No - PSYCHIATRIC Hx Anxiety: Yes Hx Depression: Yes Hx Substance Use: No - SURGICAL HISTORY Hx Cholecystectomy: Yes (2011) 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/2009) Hx Coronary Stent: Yes - ANESTHESIA Hx Anesthesia: Yes Hx Anesthesia Reactions: No Hx Malignant Hyperthermia: No Meds Allergies/Adverse Reactions: Allergies Allergy/AdvReac Type Severity Reaction Status Date / Time acetaminophen [From Percocet] Allergy RASH Verified 10/02/17 22:06 atenolol Allergy RASH Verified 10/02/17 22:06 digoxin Allergy RASH Verified 10/02/17 22:06 milk Allergy ITCHING Verified 10/02/17 22:06 morphine Allergy RASH Verified 10/02/17 22:06 oxycodone HCl [From Percocet] Allergy RASH Verified 10/02/17 22:06 Physical Exam - Constitutional Appears: In Acute Distress - Head Exam Head Exam: ATRAUMATIC - Eye Exam Eye Exam: Conjunctival injection - Neck Exam Neck exam: Positive for: Full Rom - Respiratory Exam Respiratory Exam: Decreased Breath Sounds - Cardiovascular Exam Cardiovascular Exam: REGULAR RHYTHM - GI/Abdominal Exam GI & Abdominal Exam: Distended, Tenderness - Rectal Exam Rectal Exam: NORMAL INSPECTION - Extremities Exam Additional comments: bilat amputation - Back Exam Back exam: CVA tenderness (L) - Neurological Exam Neurological exam: Alert, Oriented x3 - Psychiatric Exam Psychiatric exam: Normal Affect - Skin Skin Exam: Normal Color, Pallor Results - Vital Signs Recent Vital Signs: Last Vital Signs Temp 97.5 F L 10/03/17 16:58 Pulse 77 10/03/17 17:33 Resp 20 10/03/17 16:58 BP 188/89 H 10/03/17 17:33 Pulse Ox 700 H 10/03/17 16:58 - Labs Result Diagrams: 10/02/17 22:37 10/02/17 22:55 Labs: Laboratory Results - last 24 hr 10/02/17 10/02/17 10/02/17 22:37 22:41 22:55 WBC 9.1 RBC 3.40 L Hgb 10.7 L Hct 31.8 L MCV 93.4 MCH 31.5 H MCHC 33.7 RDW 18.4 H Plt Count 245 MPV 9.9 Neut % (Auto) 59.4 Lymph % (Auto) 29.9 [place] % (Auto) 7.1 Eos % (Auto) 2.7 Baso % (Auto) 0.9 Neut # (Auto) 5.4 Lymph # (Auto) 2.7 [place] # (Auto) 0.6 Eos # (Auto) 0.2 Baso # (Auto) 0.1 PT 11.5 INR 1.0 APTT 33 Sodium 132 Potassium 3.8 Chloride 94 L Carbon Dioxide 21 L Anion Gap 21 H BUN 80 H Creatinine 8.6 H* D Est GFR ( Amer) 9 Est GFR (Non-Af Amer) 7 POC Glucose (mg/dL) Random Glucose 402 H* Calcium 8.4 L Total Bilirubin 0.6 AST 18 ALT 15 L Alkaline Phosphatase 215 H D Total Creatine Kinase 24 L CK-MB (Mass) 0.95 Troponin I 0.6500 H* NT-Pro-B Natriuret Pep 48590 H Total Protein 7.0 Albumin 3.9 Globulin 3.1 Albumin/Globulin Ratio 1.2 10/03/17 10/03/17 10/03/17 03:58 04:02 04:50 WBC RBC Hgb Hct MCV MCH MCHC RDW Plt Count MPV Neut % (Auto) Lymph % (Auto) [place] % (Auto) Eos % (Auto) Baso % (Auto) Neut # (Auto) Lymph # (Auto) [place] # (Auto) Eos # (Auto) Baso # (Auto) PT INR APTT Sodium Potassium Chloride Carbon Dioxide Anion Gap BUN Creatinine Est GFR ( Amer) Est GFR (Non-Af Amer) POC Glucose (mg/dL) 28 L* 28 L* 122 H Random Glucose Calcium Total Bilirubin AST ALT Alkaline Phosphatase Total Creatine Kinase CK-MB (Mass) Troponin I NT-Pro-B Natriuret Pep Total Protein Albumin Globulin Albumin/Globulin Ratio 10/03/17 10/03/17 10/03/17 07:24 11:47 11:49 WBC RBC Hgb Hct MCV MCH MCHC RDW Plt Count MPV Neut % (Auto) Lymph % (Auto) [place] % (Auto) Eos % (Auto) Baso % (Auto) Neut # (Auto) Lymph # (Auto) [place] # (Auto) Eos # (Auto) Baso # (Auto) PT INR APTT Sodium Potassium Chloride Carbon Dioxide Anion Gap BUN Creatinine Est GFR ( Amer) Est GFR (Non-Af Amer) POC Glucose (mg/dL) 70 66 62 L Random Glucose Calcium Total Bilirubin AST ALT Alkaline Phosphatase Total Creatine Kinase CK-MB (Mass) Troponin I NT-Pro-B Natriuret Pep Total Protein Albumin Globulin Albumin/Globulin Ratio 10/03/17 10/03/17 10/03/17 12:25 16:23 17:00 WBC RBC Hgb Hct MCV MCH MCHC RDW Plt Count MPV Neut % (Auto) Lymph % (Auto) [place] % (Auto) Eos % (Auto) Baso % (Auto) Neut # (Auto) Lymph # (Auto) [place] # (Auto) Eos # (Auto) Baso # (Auto) PT INR APTT Sodium Potassium Chloride Carbon Dioxide Anion Gap BUN Creatinine Est GFR ( Amer) Est GFR (Non-Af Amer) POC Glucose (mg/dL) 107 124 H 119 H Random Glucose Calcium Total Bilirubin AST ALT Alkaline Phosphatase Total Creatine Kinase CK-MB (Mass) Troponin I NT-Pro-B Natriuret Pep Total Protein Albumin Globulin Albumin/Globulin Ratio Assessment & Plan - Assessment and Plan (Free Text) Assessment: ac chest pain persistant diarehea abd pain dmid copd esrf Plan: as per orders - Date & Time Date: 10/03/17 Time: 17:50
[2017-10-03] MEDS: (Lantus) Insulin Glargine, Recombinant SC SCH (21:40)
--- NOTE | 2017-10-03 22:10 | CARD ---
APPROVED REPORT EKG Measurement Heart [id number] <Conclusion> PROMINENT BASELINE ARTIFACT- PLEASE REPEAT Possible sinus rhythm with frequent PACs vs atrial fibrillation- please repeat Possible Left atrial enlargement Left ventricular hypertrophy with repolarization abnormality Prolonged QT Abnormal ECG
[2017-10-04 01:15] LABS: BASO % 0.4 % (0.0-2.0); EOS # 0.2 K/uL (0.0-0.7); EOS % 3.4 % (0.0-4.0); HEMOGLOBIN 8.1 g/dL (12.0-18.0); LYMPH # 1.6 K/uL (1.0-4.3); MEAN CELL VOLUME 91.7 fL (80.0-94.0); MEAN CORPUSCULAR HEMOGLOBIN 30.5 pg (27.0-31.0); MEAN CORPUSCULAR HGB CONC 33.3 g/dL (33.0-37.0); MONO # 0.4 K/uL (0.0-0.8); MONO % 6.5 % (0.0-10.0); NEUT # 4.3 K/uL (1.8-7.0); NEUT % 64.7 % (50.0-75.0); RBC 2.65 Mil/uL (4.40-5.90); RED CELL DISTRIBUTION WIDTH 18.4 % (11.5-14.5); WHITE BLOOD COUNT 6.6 K/uL (4.8-10.8)
[2017-10-04 01:29] LABS: ALBUMIN 3.1 g/dL (3.5-5.0); CALCIUM 8.2 mg/dl (8.6-10.4); MAGNESIUM 1.5 mg/dL (1.6-2.3)
[2017-10-04 01:40] LABS: CK-MB 0.74 ng/mL (0.0-3.38)
[2017-10-04 01:54] LABS: B-TYPE NATRIURETIC PEPTIDE 68600 pg/mL (0-450)
[2017-10-04] MEDS: Albuterol-Ipratrop 3 mg / 0.5 (3 ml) UD INH SCH ×4 (07:20→19:56)
[2017-10-04] MEDS: (Novolin R) Insulin Human Regular 100 units/ml vial SC SCH ×4 (08:22→21:37)
[2017-10-04] MEDS: Multivitamin Vitamin B Complex (Nephro-Vite) Tab PO SCH (08:36)
[2017-10-04] MEDS: Pantoprazole 40 mg EC Tab PO SCH (09:24)
[2017-10-04] MEDS: POLYETHYLENE GLYCOL 3350 17 GM/Dose PACKET PO SCH (09:26)
--- NOTE | 2017-10-04 11:12 | CP.PCM.PN ---
Subjective - Date & Time of Evaluation Date of Evaluation: 10/04/17 Time of Evaluation: 11:10 - Subjective Subjective: pt still has abd pain and diarhea less chest pain Objective - Vital Signs/Intake and Output Vital Signs (last 24 hours): Temp Pulse Resp BP Pulse Ox 97.9 F 77 18 158/76 H 100 10/04/17 07:10 10/04/17 07:20 10/04/17 07:10 10/04/17 09:24 10/04/17 07:10 - Medications Medications: Current Medications Albuterol/Ipratropium (Duoneb 3 Mg/0.5 Mg (3 Ml) Ud) 3 ml INH RQID [facility] Last Admin: 10/04/17 07:20 Dose: 3 ml Amiodarone HCl (Cordarone) 200 mg PO DAILY [facility] Last Admin: 10/04/17 09:24 Dose: 200 mg Amlodipine Besylate (Norvasc) 10 mg PO DAILY [facility] Last Admin: 10/04/17 09:23 Dose: 10 mg Aspirin (Aspirin Chewable) 81 mg PO DAILY [facility] Last Admin: 10/04/17 09:23 Dose: 81 mg Calcium Carbonate (Oscal) 500 mg PO BID [facility] Last Admin: 10/04/17 09:24 Dose: 500 mg Carvedilol (Coreg) 25 mg PO BID [facility] Last Admin: 10/04/17 09:24 Dose: 25 mg Clonidine HCl (Catapres-Tts3 0.3 Mg/24 Hr) 1 patch TD Q7D@1000 [facility] Last Admin: 10/03/17 10:10 Dose: 1 patch Docusate Sodium (Colace) 100 mg PO TID PRN PRN Reason: Constipation Ergocalciferol (Drisdol 50,000 Intl Units Cap) 1 cap PO Q7D [facility] Last Admin: 10/03/17 01:54 Dose: Not Given Heparin Sodium (Porcine) (Heparin) 3,700 units IVP TTS [facility] Stop: 10/08/17 10:01 Last Admin: 10/03/17 16:07 Dose: 3,700 units Hydromorphone HCl (Dilaudid) 1 mg IVP Q6 PRN PRN Reason: Pain, severe (8-10) Last Admin: 10/04/17 06:25 Dose: 1 mg Insulin Glargine (Lantus) 10 unit SC HS [facility] Last Admin: 10/03/17 21:40 Dose: 10 u Insulin Human Regular (Novolin R) 0 unit SC [facility] PRN Reason: Protocol Last Admin: 10/04/17 08:22 Dose: Not Given Isosorbide Mononitrate (Imdur Er) 90 mg PO DAILY [facility] Last Admin: 10/04/17 09:23 Dose: 90 mg Lactulose (Enulose) 20 gm PO DAILY [facility] Last Admin: 10/04/17 09:25 Dose: Not Given Montelukast Sodium (Singulair) 10 mg PO DAILY [facility] Last Admin: 10/04/17 09:24 Dose: 10 mg Ondansetron HCl (Zofran Inj) 4 mg IVP Q6H PRN PRN Reason: Nausea/Vomiting Last Admin: 10/04/17 08:36 Dose: 4 mg Pantoprazole Sodium (Protonix Ec Tab) 40 mg PO DAILY [facility] Last Admin: 10/04/17 09:24 Dose: 40 mg Polyethylene Glycol (Miralax) 17 gm PO DAILY [facility] Last Admin: 10/04/17 09:26 Dose: Not Given Rosuvastatin Calcium (Crestor) 10 mg PO [facility] Last Admin: 10/03/17 21:39 Dose: 10 mg Sertraline HCl (Zoloft) 50 mg PO DAILY [facility] Last Admin: 10/04/17 09:28 Dose: 50 mg Vitamin B Complex/Vit C/Folic Acid (Nephro-Courtney) 1 tab PO 0800 [facility] Last Admin: 10/04/17 08:36 Dose: 1 tab - Labs Labs: 10/04/17 01:03 10/04/17 01:03 PT 11.5 SECONDS (9.7-12.2) 10/02/17 22:41 INR 1.0 10/02/17 22:41 APTT 33 SECONDS (21-34) 10/02/17 22:41 - Constitutional Appears: Non-toxic - Head Exam Head Exam: NORMAL INSPECTION - Eye Exam Eye Exam: Conjunctival injection - ENT Exam ENT Exam: Mucous Membranes Dry - Neck Exam Neck Exam: Full ROM - Respiratory Exam Respiratory Exam: Clear to Ausculation Bilateral - Cardiovascular Exam Cardiovascular Exam: REGULAR RHYTHM - GI/Abdominal Exam GI & Abdominal Exam: Tenderness - Rectal Exam Rectal Exam: NORMAL INSPECTION - Back Exam Back Exam: CVA tenderness (L) - Psychiatric Exam Psychiatric exam: Normal Affect - Skin Skin Exam: Pallor Assessment and Plan - Assessment and Plan (Free Text) Assessment: ac abd pain ac diahrea ac chest pain cad chf dm Plan: cont as per orders
--- NOTE | 2017-10-04 11:33 | CP.PCM.PN ---
Subjective - Date & Time of Evaluation Date of Evaluation: 10/04/17 Time of Evaluation: 11:29 - Subjective Subjective: Patient in bed appears to be comfortable but no nausea or vomiting Reported to have occasional diarrhea No chest pain reported Objective - Vital Signs/Intake and Output Vital Signs (last 24 hours): Temp Pulse Resp BP Pulse Ox 97.9 F 77 18 158/76 H 100 10/04/17 07:10 10/04/17 07:20 10/04/17 07:10 10/04/17 09:24 10/04/17 07:10 - Medications Medications: Current Medications Albuterol/Ipratropium (Duoneb 3 Mg/0.5 Mg (3 Ml) Ud) 3 ml INH RQID [facility] Last Admin: 10/04/17 07:20 Dose: 3 ml Amiodarone HCl (Cordarone) 200 mg PO DAILY [facility] Last Admin: 10/04/17 09:24 Dose: 200 mg Amlodipine Besylate (Norvasc) 10 mg PO DAILY [facility] Last Admin: 10/04/17 09:23 Dose: 10 mg Aspirin (Aspirin Chewable) 81 mg PO DAILY [facility] Last Admin: 10/04/17 09:23 Dose: 81 mg Calcium Carbonate (Oscal) 500 mg PO BID [facility] Last Admin: 10/04/17 09:24 Dose: 500 mg Carvedilol (Coreg) 25 mg PO BID [facility] Last Admin: 10/04/17 09:24 Dose: 25 mg Clonidine HCl (Catapres-Tts3 0.3 Mg/24 Hr) 1 patch TD Q7D@1000 [facility] Last Admin: 10/03/17 10:10 Dose: 1 patch Docusate Sodium (Colace) 100 mg PO TID PRN PRN Reason: Constipation Ergocalciferol (Drisdol 50,000 Intl Units Cap) 1 cap PO Q7D [facility] Last Admin: 10/03/17 01:54 Dose: Not Given Heparin Sodium (Porcine) (Heparin) 3,700 units IVP TTS [facility] Stop: 10/08/17 10:01 Last Admin: 10/03/17 16:07 Dose: 3,700 units Hydromorphone HCl (Dilaudid) 1 mg IVP Q6 PRN PRN Reason: Pain, severe (8-10) Last Admin: 10/04/17 06:25 Dose: 1 mg Insulin Glargine (Lantus) 10 unit SC [facility] Last Admin: 10/03/17 21:40 Dose: 10 u Insulin Human Regular (Novolin R) 0 unit SC [facility] PRN Reason: Protocol Last Admin: 10/04/17 08:22 Dose: Not Given Isosorbide Mononitrate (Imdur Er) 90 mg PO DAILY [facility] Last Admin: 10/04/17 09:23 Dose: 90 mg Lactulose (Enulose) 20 gm PO DAILY [facility] Last Admin: 10/04/17 09:25 Dose: Not Given Montelukast Sodium (Singulair) 10 mg PO DAILY [facility] Last Admin: 10/04/17 09:24 Dose: 10 mg Ondansetron HCl (Zofran Inj) 4 mg IVP Q6H PRN PRN Reason: Nausea/Vomiting Last Admin: 10/04/17 08:36 Dose: 4 mg Pantoprazole Sodium (Protonix Ec Tab) 40 mg PO DAILY [facility] Last Admin: 10/04/17 09:24 Dose: 40 mg Polyethylene Glycol (Miralax) 17 gm PO DAILY [facility] Last Admin: 10/04/17 09:26 Dose: Not Given Rosuvastatin Calcium (Crestor) 10 mg PO [facility] Last Admin: 10/03/17 21:39 Dose: 10 mg Sertraline HCl (Zoloft) 50 mg PO DAILY [facility] Last Admin: 10/04/17 09:28 Dose: 50 mg Vitamin B Complex/Vit C/Folic Acid (Nephro-Courtney) 1 tab PO 0800 [facility] Last Admin: 10/04/17 08:36 Dose: 1 tab - Labs Labs: 10/04/17 01:03 10/04/17 01:03 PT 11.5 SECONDS (9.7-12.2) 10/02/17 22:41 INR 1.0 10/02/17 22:41 APTT 33 SECONDS (21-34) 10/02/17 22:41 - Constitutional Appears: No Acute Distress - ENT Exam ENT Exam: Mucous Membranes Moist - Respiratory Exam Respiratory Exam: NORMAL BREATHING PATTERN. absent: Chest Wall Tenderness, Rales - GI/Abdominal Exam GI & Abdominal Exam: Soft, Normal Bowel Sounds - Extremities Exam Extremities Exam: absent: Calf Tenderness - Back Exam Back Exam: absent: CVA tenderness (L), CVA tenderness (R) - Neurological Exam Neurological Exam: Alert - Psychiatric Exam Psychiatric exam: Normal Affect - Skin Skin Exam: absent: Cyanosis Assessment and Plan (1) CKD (chronic kidney disease) stage V requiring chronic dialysis Assessment & Plan: Patient states renal disease on maintenance hemodialysis TTS Patient admitted with atypical chest pain he has been coming to the hospital for this atypical chest pain and some GI pain and also patient complaining of chronic pain and requesting narcotics. chronic chest pain, diarrhoea Diabetic chronic Kidney Disease (E11.22) Hypertensive Chronic Kidney Disease (I12.0) End stage renal disease (N18.6) dependence on hemodialysis (Z99.2) (TTS) via AVF Anemia (D64.9), Hyperphosphatemia (E83.39), Secondary Hyperparathyroidism (E21.1 ), HTN (I12.0) CAD s/p CABG, diastolic CHF, pA flutter/fib, intra-cardiac thrombus, hx of Heparin induced thrombocytopenia, hx of seizure, blindness Plan for dialysis for tomorrow Status: Acute (2) CAD (coronary artery disease) of artery bypass graft Status: Acute
[2017-10-04] MEDS: (Lantus) Insulin Glargine, Recombinant SC SCH (21:41)
[2017-10-04] MEDS: Vancomycin 125 MG/5 ML SOLN (ORAL/RECTAL) PO SCH (22:54)
[2017-10-05 07:14] LABS: BASO % 0.5 % (0.0-2.0); EOS # 0.3 K/uL (0.0-0.7); EOS % 3.2 % (0.0-4.0); HEMOGLOBIN 8.6 g/dL (12.0-18.0); LYMPH # 2.6 K/uL (1.0-4.3); LYMPH % 30.6 % (20.0-40.0); MEAN CORPUSCULAR HEMOGLOBIN 30.8 pg (27.0-31.0); MEAN CORPUSCULAR HGB CONC 33.4 g/dL (33.0-37.0); MEAN PLATELET VOLUME 8.9 fL (7.2-11.7); MONO # 0.5 K/uL (0.0-0.8); MONO % 5.6 % (0.0-10.0); NEUT # 5.2 K/uL (1.8-7.0); NEUT % 60.1 % (50.0-75.0); RBC 2.8 Mil/uL (4.40-5.90); RED CELL DISTRIBUTION WIDTH 17.7 % (11.5-14.5); WHITE BLOOD COUNT 8.6 K/uL (4.8-10.8)
[2017-10-05] MEDS: Albuterol-Ipratrop 3 mg / 0.5 (3 ml) UD INH SCH ×4 (07:20→20:06)
[2017-10-05 08:09] LABS: ALB/GLOB RATIO 1.1 (1.0-2.1); ALBUMIN 3.5 g/dL (3.5-5.0); CALCIUM 8.4 mg/dl (8.6-10.4)
[2017-10-05] MEDS: (Novolin R) Insulin Human Regular 100 units/ml vial SC SCH ×4 (08:20→21:56)
[2017-10-05] MEDS: Multivitamin Vitamin B Complex (Nephro-Vite) Tab PO SCH (08:20)
[2017-10-05] MEDS: POLYETHYLENE GLYCOL 3350 17 GM/Dose PACKET PO SCH (10:12)
[2017-10-05] MEDS: Pantoprazole 40 mg EC Tab PO SCH (10:13)
[2017-10-05] MEDS: Vancomycin 125 MG/5 ML SOLN (ORAL/RECTAL) PO SCH (10:14)
--- NOTE | 2017-10-05 10:48 | CP.PCM.PN ---
Subjective - Date & Time of Evaluation Date of Evaluation: 10/05/17 Time of Evaluation: 10:45 - Subjective Subjective: pt still has abd pain diarheawas found to be c def Objective - Vital Signs/Intake and Output Vital Signs (last 24 hours): Temp Pulse Resp BP Pulse Ox 98.1 F 69 20 166/78 H 98 10/05/17 07:10 10/05/17 07:10 10/05/17 07:10 10/05/17 10:11 10/05/17 07:10 Intake and Output: 10/05/17 10/05/17 06:59 18:59 Intake Total 220 Balance 220 - Medications Medications: Current Medications Albuterol/Ipratropium (Duoneb 3 Mg/0.5 Mg (3 Ml) Ud) 3 ml INH RQID [facility] Last Admin: 10/05/17 07:20 Dose: Not Given Amiodarone HCl (Cordarone) 200 mg PO DAILY [facility] Last Admin: 10/05/17 10:11 Dose: Not Given Amlodipine Besylate (Norvasc) 10 mg PO DAILY [facility] Last Admin: 10/05/17 10:13 Dose: Not Given Aspirin (Aspirin Chewable) 81 mg PO DAILY [facility] Last Admin: 10/05/17 10:10 Dose: 81 mg Calcium Carbonate (Oscal) 500 mg PO BID [facility] Last Admin: 10/05/17 10:13 Dose: 500 mg Carvedilol (Coreg) 25 mg PO BID [facility] Last Admin: 10/05/17 10:11 Dose: Not Given Clonidine HCl (Catapres-Tts3 0.3 Mg/24 Hr) 1 patch TD Q7D@1000 [facility] Last Admin: 10/03/17 10:10 Dose: 1 patch Docusate Sodium (Colace) 100 mg PO TID PRN PRN Reason: Constipation Ergocalciferol (Drisdol 50,000 Intl Units Cap) 1 cap PO Q7D [facility] Last Admin: 10/03/17 01:54 Dose: Not Given Heparin Sodium (Porcine) (Heparin) 3,700 units IVP TTS [facility] Stop: 10/08/17 10:01 Last Admin: 10/03/17 16:07 Dose: 3,700 units Hydromorphone HCl (Dilaudid) 1 mg IVP Q6 PRN PRN Reason: Pain, severe (8-10) Last Admin: 10/05/17 05:00 Dose: 1 mg Insulin Glargine (Lantus) 10 unit SC [facility] Last Admin: 10/04/17 21:41 Dose: 10 u Insulin Human Regular (Novolin R) 0 unit SC [facility] PRN Reason: Protocol Last Admin: 10/05/17 08:20 Dose: 3 unit Isosorbide Mononitrate (Imdur Er) 90 mg PO DAILY [facility] Last Admin: 10/05/17 10:12 Dose: Not Given Lactulose (Enulose) 20 gm PO DAILY [facility] Last Admin: 10/05/17 10:12 Dose: Not Given Metronidazole (Flagyl) 500 mg PO DAILY [facility] Last Admin: 10/05/17 10:12 Dose: 500 mg Montelukast Sodium (Singulair) 10 mg PO DAILY [facility] Last Admin: 10/05/17 10:13 Dose: 10 mg Ondansetron HCl (Zofran Inj) 4 mg IVP Q6H PRN PRN Reason: Nausea/Vomiting Last Admin: 10/04/17 08:36 Dose: 4 mg Pantoprazole Sodium (Protonix Ec Tab) 40 mg PO DAILY [facility] Last Admin: 10/05/17 10:13 Dose: 40 mg Polyethylene Glycol (Miralax) 17 gm PO DAILY [facility] Last Admin: 10/05/17 10:12 Dose: Not Given Rosuvastatin Calcium (Crestor) 10 mg PO HS [facility] Last Admin: 10/04/17 21:40 Dose: 10 mg Sertraline HCl (Zoloft) 50 mg PO DAILY [facility] Last Admin: 10/05/17 10:14 Dose: 50 mg Vancomycin HCl (Vancocin (Oral Or Rectal Use)) 500 mg PO DAILY [facility] Last Admin: 10/05/17 10:14 Dose: 500 mg Vitamin B Complex/Vit C/Folic Acid (Nephro-Courtney) 1 tab PO 0800 [facility] Last Admin: 10/05/17 08:20 Dose: 1 tab - Labs Labs: 10/05/17 06:39 10/05/17 06:39 PT 11.5 SECONDS (9.7-12.2) 10/02/17 22:41 INR 1.0 10/02/17 22:41 APTT 33 SECONDS (21-34) 10/02/17 22:41 - Constitutional Appears: In Acute Distress - Head Exam Head Exam: ATRAUMATIC - Eye Exam Eye Exam: Conjunctival injection - ENT Exam ENT Exam: Mucous Membranes Moist - Neck Exam Neck Exam: Full ROM - Respiratory Exam Respiratory Exam: Clear to Ausculation Bilateral - Cardiovascular Exam Cardiovascular Exam: REGULAR RHYTHM - GI/Abdominal Exam GI & Abdominal Exam: Tenderness - Rectal Exam Rectal Exam: NORMAL INSPECTION - Back Exam Back Exam: CVA tenderness (L) - Psychiatric Exam Psychiatric exam: Normal Affect - Skin Skin Exam: Pallor Assessment and Plan - Assessment and Plan (Free Text) Assessment: ac membranous colitis c def infection dm esrf htn Plan: as oer orders
--- NOTE | 2017-10-05 11:08 | RAD ---
HISTORY: Diarrhea ; rule out fecal impaction COMPARISON: No prior. FINDINGS: BOWEL: No evidence of acute mechanical bowel obstruction. There is a large amount of stool seen within the at ascending, transverse and descending colon consistent with fecal retention/ constipation. There are metallic clips right and on mid upper quadrants of the abdomen. BONES: Normal. OTHER FINDINGS: None. IMPRESSION: Findings consistent with constipation. No evidence of acute mechanical bowel obstruction.
--- NOTE | 2017-10-05 14:21 | PN ---
DATE: 10/05/2017 LOCATION: 552, bed B. SUBJECTIVE: This is a 37-year-old male seen and examined early for GI consultation on 10/04/2017 as requested by the admitting MD, reexamined again today with a complained of crampy abdominal pain, diarrhea, and was found to have stool positive for C. diff. Case discussed at length with Dr. Li and the patient had intermittent period of nausea and vomiting on and off, but no reported chest pain. LABORATORY DATA: Today's lab showed hemoglobin of 8.6, hematocrit 25.8 with increased BUN of 50, creatinine 5.7 with blood glucose level of 222 with low calcium 8.4, and alkaline phosphatase 185. Abdominal x-ray done as ordered by myself before indicative of constipation and no evidence of acute mechanical bowel obstruction. PHYSICAL EXAMINATION: GENERAL: A 37-year-old male. VITAL SIGNS: Afebrile with pulse of 82, blood pressure of 150/108, respiratory rate of 18-20. HEENT: Showed mildly pale, dry oral mucous membranes. Nonicteric sclerae. LUNGS: Scattered crepitation, decreased air entry at bases. HEART: Positive S1 and S2 with increased rate. ABDOMEN: Soft with mild distention, generalized tenderness. No mass or organomegaly. No rebound tenderness or guarding. EXTREMITIES: With bilateral above knee amputation. NEUROLOGIC: No other reported new neurological deficits, sensory or motor. The patient is legally blind. IMPRESSION: 1. Pseudomembranous colitis inducing diarrhea. 2. Poorly controlled diabetes mellitus. 3. Gastritis with diabetic gastroparesis and recurrent nausea and vomiting secondary to above most likely. 4. Anemia secondary to chronic disease. No evidence of active bleeding. 5. Multiple complicated past medical history including end stage renal disease, on hemodialysis, hypertension, coronary artery disease status post coronary artery bypass graft and status post coronary stent insertion and cholecystectomy before. 6. Known history of hypothyroidism and anemia with depression. SUGGESTIONS: 1. Continue current management. 2. Flagyl and vancomycin had to be incoordination with the nephrology pre owned sales consultant as the patient had been on hemodialysis. 3. Further recommendation to follow. Tamiko Conde MD [facility] # [id number]
--- NOTE | 2017-10-05 17:11 | CP.PCM.PN ---
Subjective - Date & Time of Evaluation Date of Evaluation: 10/05/17 Time of Evaluation: 14:00 - Subjective Subjective: renal follow up note Assessment: Stable chronic chest pain, diarrhea Diabetic chronic Kidney Disease (E11.22) Hypertensive Chronic Kidney Disease (I12.0) End stage renal disease (N18.6) dependence on hemodialysis (Z99.2) (TTS) via AVF Anemia (D64.9), Hyperphosphatemia (E83.39), Secondary Hyperparathyroidism (E21.1 ), HTN (I12.0) CAD s/p CABG, diastolic CHF, pA flutter/fib, intra-cardiac thrombus, hx of Heparin induced thrombocytopenia, hx of seizure, blindness c diff infection Plan: continue hd tts Continue with Nephrovite 1 tab/day. PRBC as needed for anemia. will consider Epogen if Hb <10 Continue with phos binders home dose Continue with calcitriol BP control with meds on vanc and flagyl po General Appearance: Comfortable, in no acute respiratory distress, co-operative . Head; Atraumatic, normocephalic ENT: no ulcers no thrush. Tongue is midline. Oropharynx: no rash or ulcers. EYES: Pt is blind both eyes Neck; supple no lymphadenopathy, no thyromegaly or bruit Lungs: Normal respiratory rate/effort. Breath sounds bilateral equal clear Heart: Normal rate. s1s2 normal. No rub or gallop. Extremities: no edema. No varicose veins. has b/l BKA Neurological: Patient is alert, awake and oriented to person, place and time. No focal deficit. Strength bilateral appropriate and equal Skin: Warm and dry. Normal turgor. No rash. Abdomen: Abdomen is soft. Bowel sounds +. Psych: limited insight and has normal affect/mood MSK: no joint tenderness or swelling. Access: permacath Objective - Vital Signs/Intake and Output Vital Signs (last 24 hours): Temp Pulse Resp BP Pulse Ox 97.7 F 69 20 143/77 95 10/05/17 15:00 10/05/17 16:26 10/05/17 15:00 10/05/17 15:00 10/05/17 15:00 Intake and Output: 10/05/17 10/05/17 06:59 18:59 Intake Total 220 Balance 220 - Medications Medications: Current Medications Albuterol/Ipratropium (Duoneb 3 Mg/0.5 Mg (3 Ml) Ud) 3 ml INH RQID [facility] Last Admin: 10/05/17 11:04 Dose: Not Given Amiodarone HCl (Cordarone) 200 mg PO DAILY [facility] Last Admin: 10/05/17 10:11 Dose: Not Given Amlodipine Besylate (Norvasc) 10 mg PO DAILY [facility] Last Admin: 10/05/17 10:13 Dose: Not Given Aspirin (Aspirin Chewable) 81 mg PO DAILY [facility] Last Admin: 10/05/17 10:10 Dose: 81 mg Calcium Carbonate (Oscal) 500 mg PO BID [facility] Last Admin: 10/05/17 10:13 Dose: 500 mg Carvedilol (Coreg) 25 mg PO BID [facility] Last Admin: 10/05/17 10:11 Dose: Not Given Clonidine HCl (Catapres-Tts3 0.3 Mg/24 Hr) 1 patch TD Q7D@1000 [facility] Last Admin: 10/03/17 10:10 Dose: 1 patch Docusate Sodium (Colace) 100 mg PO TID PRN PRN Reason: Constipation Ergocalciferol (Drisdol 50,000 Intl Units Cap) 1 cap PO Q7D [facility] Last Admin: 10/03/17 01:54 Dose: Not Given Heparin Sodium (Porcine) (Heparin) 3,700 units IVP TTS [facility] Stop: 10/08/17 10:01 Last Admin: 10/05/17 14:10 Dose: 3,700 units Hydromorphone HCl (Dilaudid) 1 mg IVP Q6 PRN PRN Reason: Pain, severe (8-10) Last Admin: 10/05/17 11:04 Dose: 1 mg Insulin Glargine (Lantus) 10 unit SC [facility] Last Admin: 10/04/17 21:41 Dose: 10 u Insulin Human Regular (Novolin R) 0 unit SC [facility] PRN Reason: Protocol Last Admin: 10/05/17 13:55 Dose: Not Given Isosorbide Mononitrate (Imdur Er) 90 mg PO DAILY [facility] Last Admin: 10/05/17 10:12 Dose: Not Given Lactulose (Enulose) 20 gm PO DAILY [facility] Last Admin: 10/05/17 10:12 Dose: Not Given Metronidazole (Flagyl) 500 mg PO DAILY [facility] Last Admin: 10/05/17 10:12 Dose: 500 mg Montelukast Sodium (Singulair) 10 mg PO DAILY [facility] Last Admin: 10/05/17 10:13 Dose: 10 mg Ondansetron HCl (Zofran Inj) 4 mg IVP Q6H PRN PRN Reason: Nausea/Vomiting Last Admin: 10/04/17 08:36 Dose: 4 mg Pantoprazole Sodium (Protonix Ec Tab) 40 mg PO DAILY [facility] Last Admin: 10/05/17 10:13 Dose: 40 mg Polyethylene Glycol (Miralax) 17 gm PO DAILY [facility] Last Admin: 10/05/17 10:12 Dose: Not Given Rosuvastatin Calcium (Crestor) 10 mg PO HS [facility] Last Admin: 10/04/17 21:40 Dose: 10 mg Sertraline HCl (Zoloft) 50 mg PO DAILY [facility] Last Admin: 10/05/17 10:14 Dose: 50 mg Vancomycin HCl (Vancocin (Oral Or Rectal Use)) 500 mg PO DAILY [facility] Last Admin: 10/05/17 10:14 Dose: 500 mg Vitamin B Complex/Vit C/Folic Acid (Nephro-Courtney) 1 tab PO 0800 [facility] Last Admin: 10/05/17 08:20 Dose: 1 tab - Labs Labs: 10/05/17 06:39 10/05/17 06:39 PT 11.5 SECONDS (9.7-12.2) 10/02/17 22:41 INR 1.0 10/02/17 22:41 APTT 33 SECONDS (21-34) 10/02/17 22:41
[2017-10-05] MEDS: (Lantus) Insulin Glargine, Recombinant SC SCH (21:56)
[2017-10-06] MEDS: Multivitamin Vitamin B Complex (Nephro-Vite) Tab PO SCH (08:29)
[2017-10-06] MEDS: (Novolin R) Insulin Human Regular 100 units/ml vial SC SCH ×4 (08:29→21:43)
[2017-10-06] MEDS: Albuterol-Ipratrop 3 mg / 0.5 (3 ml) UD INH SCH ×4 (08:40→20:24)
[2017-10-06] MEDS: Pantoprazole 40 mg EC Tab PO SCH (09:28)
[2017-10-06] MEDS: Vancomycin 125 MG/5 ML SOLN (ORAL/RECTAL) PO SCH (09:28)
[2017-10-06] MEDS: POLYETHYLENE GLYCOL 3350 17 GM/Dose PACKET PO SCH (09:30)
--- NOTE | 2017-10-06 11:32 | CP.PCM.PN ---
Subjective - Date & Time of Evaluation Date of Evaluation: 10/06/17 Time of Evaluation: 11:30 - Subjective Subjective: cring of abd pain had diarhea 4 adi this morning has cdef Objective - Vital Signs/Intake and Output Vital Signs (last 24 hours): Temp Pulse Resp BP Pulse Ox 98.4 F 86 18 116/66 100 10/06/17 07:05 10/06/17 07:05 10/06/17 07:05 10/06/17 09:36 10/06/17 07:05 - Medications Medications: Current Medications Albuterol/Ipratropium (Duoneb 3 Mg/0.5 Mg (3 Ml) Ud) 3 ml INH RQID [facility] Last Admin: 10/06/17 08:40 Dose: 3 ml Amiodarone HCl (Cordarone) 200 mg PO DAILY [facility] Last Admin: 10/06/17 09:29 Dose: 200 mg Amlodipine Besylate (Norvasc) 10 mg PO DAILY [facility] Last Admin: 10/06/17 09:29 Dose: 10 mg Aspirin (Aspirin Chewable) 81 mg PO DAILY [facility] Last Admin: 10/06/17 09:28 Dose: 81 mg Calcium Carbonate (Oscal) 500 mg PO BID [facility] Last Admin: 10/06/17 09:29 Dose: 500 mg Carvedilol (Coreg) 25 mg PO BID [facility] Last Admin: 10/06/17 09:36 Dose: 25 mg Clonidine HCl (Catapres-Tts3 0.3 Mg/24 Hr) 1 patch TD Q7D@1000 [facility] Last Admin: 10/03/17 10:10 Dose: 1 patch Docusate Sodium (Colace) 100 mg PO TID PRN PRN Reason: Constipation Ergocalciferol (Drisdol 50,000 Intl Units Cap) 1 cap PO Q7D [facility] Last Admin: 10/03/17 01:54 Dose: Not Given Hydromorphone HCl (Dilaudid) 1 mg IVP Q4H PRN PRN Reason: Pain, moderate (4-7) Insulin Glargine (Lantus) 10 unit SC HS [facility] Last Admin: 10/05/17 21:56 Dose: Not Given Insulin Human Regular (Novolin R) 0 unit SC [facility] PRN Reason: Protocol Last Admin: 10/06/17 08:29 Dose: 3 unit Isosorbide Mononitrate (Imdur Er) 90 mg PO DAILY [facility] Last Admin: 10/06/17 09:28 Dose: 90 mg Lactulose (Enulose) 20 gm PO DAILY [facility] Last Admin: 10/06/17 09:30 Dose: Not Given Metronidazole (Flagyl) 500 mg PO DAILY [facility] Last Admin: 10/06/17 09:28 Dose: 500 mg Montelukast Sodium (Singulair) 10 mg PO DAILY [facility] Last Admin: 10/06/17 09:29 Dose: 10 mg Ondansetron HCl (Zofran Inj) 4 mg IVP Q6H PRN PRN Reason: Nausea/Vomiting Last Admin: 10/04/17 08:36 Dose: 4 mg Pantoprazole Sodium (Protonix Ec Tab) 40 mg PO DAILY [facility] Last Admin: 10/06/17 09:28 Dose: 40 mg Polyethylene Glycol (Miralax) 17 gm PO DAILY [facility] Last Admin: 10/06/17 09:30 Dose: Not Given Rosuvastatin Calcium (Crestor) 10 mg PO HS [facility] Last Admin: 10/05/17 21:58 Dose: 10 mg Sertraline HCl (Zoloft) 50 mg PO DAILY [facility] Last Admin: 10/06/17 09:28 Dose: 50 mg Vancomycin HCl (Vancocin (Oral Or Rectal Use)) 500 mg PO DAILY [facility] Last Admin: 10/06/17 09:28 Dose: 500 mg Vitamin B Complex/Vit C/Folic Acid (Nephro-Courtney) 1 tab PO 0800 [facility] Last Admin: 10/06/17 08:29 Dose: 1 tab - Labs Labs: 10/05/17 06:39 10/05/17 06:39 PT 11.5 SECONDS (9.7-12.2) 10/02/17 22:41 INR 1.0 10/02/17 22:41 APTT 33 SECONDS (21-34) 10/02/17 22:41 - Constitutional Appears: In Acute Distress - Head Exam Head Exam: ATRAUMATIC - Eye Exam Eye Exam: Conjunctival injection - Neck Exam Neck Exam: Full ROM - Respiratory Exam Respiratory Exam: Clear to Ausculation Bilateral - Cardiovascular Exam Cardiovascular Exam: REGULAR RHYTHM - GI/Abdominal Exam GI & Abdominal Exam: Guarding, Tenderness - Rectal Exam Rectal Exam: NORMAL INSPECTION - Back Exam Back Exam: CVA tenderness (L) - Skin Skin Exam: Pallor Assessment and Plan - Assessment and Plan (Free Text) Assessment: ac colitis cdef ac abd pain dm esrf htn aneamia Plan: as per orders
--- NOTE | 2017-10-06 13:27 | PN ---
DATE: 10/06/2017 LOCATION: 552, bed B. SUBJECTIVE: This is 37-year-old male, seen early in rounds with recently diagnosed pseudomembranous colitis with severe crampy abdominal pain as well as profuse diarrhea, placed on antibiotics, still have episodes of mild nausea, dyspepsia and vomiting. The entire chart is reviewed including, but not limited to the most recent lab and radiology study results, current and the previous medication list, current and previous medical events and today his labs show blood glucose level of 221. The patient is still have low hemoglobin and hematocrit with increased BUN 50 and creatinine 5.7 compatible with known history of renal failure, on hemodialysis. PHYSICAL EXAMINATION: GENERAL: A 37-year-old male. VITAL SIGNS: Afebrile with pulse of 82, respiratory rate of 18 to 20 with blood pressure of 122/68. HEENT: Showed mildly pale, dry oral mucous membrane. Nonicteric sclerae. LUNGS: Few scattered crepitation. Decreased air entry at bases. HEART: Positive S1 and S2. ABDOMEN: Soft. No generalized tenderness. No mass or organomegaly. No rebound tenderness or guarding. NEUROLOGIC: No reported new neurological deficits, sensory or motor. IMPRESSION: 1. Acute diarrhea with pseudomembranous colitis. 2. Abnormal x-ray of the abdomen indicative of constipation which could be another reason for the patient's diarrhea. 3. Poorly controlled diabetes mellitus. 4. Gastritis, diabetic gastroparesis, known history of hypertension with poorly controlled diabetes mellitus. 5. Anemia, secondary to above. 6. End-stage renal disease. 7. Known history of hypothyroidism and depression. SUGGESTIONS: 1. Continue current management. 2. Repeat stool for C. diff at a.m. 3. Tap water enema when the patient is more stable clinically. 4. Further recommendations to follow. Tamiko Conde MD
[2017-10-06] MEDS: (Lantus) Insulin Glargine, Recombinant SC SCH (21:42)
--- NOTE | 2017-10-07 04:03 | CON ---
DATE: 10/04/[address] Conde to Dr. Sybil Li. I was called up for GI consultation by the admitting MD. The patient was seen and fully examined for GI consultation on 10/04/2017. The entire chart is reviewed including, but not limited to the most recent lab and radiology study results, current and the previous medication list, current and previous medical events, allergies to medication list, as well as all the available current and the previous medical records. Case discussed with the staff at length pre and post my consultation on 10/04/2017. This is 37-year-old male, very well known case for me from previous admission, who was admitted to the hospital with a main complaint of severe crampy abdominal pain, chest pain, diarrhea, but no reported chills or fever with intermittent period of nausea, vomiting, and mild dyspepsia. The patient had been recently in another medical institution for similar episode, placed on IV antibiotics at that time. PAST MEDICAL HISTORY: Extensive including but not limited to, peptic ulcer disease; poorly-controlled diabetes mellitus; diabetic gastroparesis; bronchial asthma; coronary artery disease; cardiac arrhythmias, status post CABG; status post cholecystectomy; status post cardiac stent insertion; hypothyroidism; hyperlipidemia; chronic renal failure, on hemodialysis. FAMILY HISTORY: Unknown. SOCIAL HISTORY: No reported history of cigarette smoking or alcohol intake. CURRENT MEDICATION: Medication lists are reviewed. ALLERGIES TO MEDICATION: UNCERTAIN. After being admitted to the hospital, the patient was found to have low hemoglobin of 10.7, hematocrit low at 31.8, with increased BUN increased blood glucose level to 402. All available radiology study results and laboratory reviewed. The patient had before extensive procedure including recent upper endoscopy. PHYSICAL EXAMINATION: GENERAL/VITAL SIGNS: A 37-year-old male, legally blind, afebrile with a pulse of 82, respiratory rate of 20 to 22 with blood pressure of 190/98. HEENT: Shows pale dry oral mucous membrane, nonicteric sclerae. LUNGS: Few scattered crepitation, decreased air entry at the bases. HEART: Positive S1 and S2. ABDOMEN: Soft with mild distention, mild generalized tenderness. No mass or organomegaly. No rebound tenderness or guarding. RECTAL: The patient refused. EXTREMITIES: With bilateral below-knee amputation. NEUROLOGIC: No reported new neurological deficits, sensory or motor. IMPRESSION: 1. Diarrhea, to rule out pseudomembranous colitis versus diabetic diarrhea. 2. Re-exacerbation of peptic ulcer disease with diabetic gastroparesis. 3. Multiple past medical history including, but not limited to diabetes mellitus, hypertension, peptic ulcer disease, coronary artery disease, congestive heart failure, chronic obstructive pulmonary disease, pneumonia by history, as well as end-stage renal disease with hyperlipidemia. SUGGESTIONS: 1. Agree with your plan. 2. Complete stool workup including C. diff toxin and ova and parasite blood culture x2. 3. Proton pump inhibitors. 4. Flagyl 500 mg one tablet p.o. only once daily due to the patient's renal status. 5. Vancomycin 500 mg one tablet p.o. daily due to the patient's renal status, that to be discussed with the Nephrology decorating consultant on the case. 6. Flat and upright abdominal x-ray. 7. Further recommendation to follow. Thank you for letting me to participate in your patient case management. Case discussed at length with Dr. Sybil Li at the time of my GI consultation on 10/04/2017. Tamiko Conde MD
[2017-10-07] MEDS: Albuterol-Ipratrop 3 mg / 0.5 (3 ml) UD INH SCH ×4 (07:17→20:23)
[2017-10-07] MEDS: (Novolin R) Insulin Human Regular 100 units/ml vial SC SCH ×3 (08:30→17:43)
[2017-10-07] MEDS: Multivitamin Vitamin B Complex (Nephro-Vite) Tab PO SCH (08:47)
[2017-10-07] MEDS: Pantoprazole 40 mg EC Tab PO SCH (09:14)
[2017-10-07] MEDS: POLYETHYLENE GLYCOL 3350 17 GM/Dose PACKET PO SCH (09:26)
[2017-10-07] MEDS: Vancomycin 125 MG/5 ML SOLN (ORAL/RECTAL) PO SCH (09:46)
--- NOTE | 2017-10-07 11:31 | CP.PCM.PN ---
Subjective - Date & Time of Evaluation Date of Evaluation: 10/07/17 Time of Evaluation: 10:40 - Subjective Subjective: RENAL FOLLOW UP Assessment: Stable chronic chest pain, diarrhea Diabetic chronic Kidney Disease (E11.22) Hypertensive Chronic Kidney Disease (I12.0) End stage renal disease (N18.6) dependence on hemodialysis (Z99.2) (TTS) via AVF Anemia (D64.9), Hyperphosphatemia (E83.39), Secondary Hyperparathyroidism (E21.1 ), HTN (I12.0) CAD s/p CABG, diastolic CHF, pA flutter/fib, intra-cardiac thrombus, hx of Heparin induced thrombocytopenia, hx of seizure, blindness c diff infection Plan: continue hd tts Continue with Nephrovite 1 tab/day. monitor H and H - epo restarted 10,000 units w/ hd bp well controlled phos level ordered for tomorrow am Continue with calcitriol BP control with meds on vanc and flagyl po S: seen and examined, states diarrhea is mildly improved General Appearance: Comfortable, in no acute respiratory distress, co-operative . Head; Atraumatic, normocephalic ENT: no ulcers no thrush. Tongue is midline. Oropharynx: no rash or ulcers. EYES: Pt is blind both eyes Neck; supple no lymphadenopathy, no thyromegaly or bruit Lungs: Normal respiratory rate/effort. Breath sounds bilateral equal clear Heart: Normal rate. s1s2 normal. No rub or gallop. Extremities: no edema. No varicose veins. has b/l BKA Neurological: Patient is alert, awake and oriented to person, place and time. No focal deficit. Strength bilateral appropriate and equal Skin: Warm and dry. Normal turgor. No rash. Abdomen: Abdomen is soft. Bowel sounds +. Psych: limited insight and has normal affect/mood MSK: no joint tenderness or swelling. Access: permacath Objective - Vital Signs/Intake and Output Vital Signs (last 24 hours): Temp Pulse Resp BP Pulse Ox 97.2 F L 66 20 122/68 100 10/07/17 09:21 10/07/17 09:21 10/07/17 09:21 10/07/17 09:21 10/07/17 09:21 - Medications Medications: Current Medications Albuterol/Ipratropium (Duoneb 3 Mg/0.5 Mg (3 Ml) Ud) 3 ml INH RQID [facility] Last Admin: 10/07/17 11:11 Dose: Not Given Amiodarone HCl (Cordarone) 200 mg PO DAILY [facility] Last Admin: 10/07/17 09:45 Dose: 200 mg Amlodipine Besylate (Norvasc) 10 mg PO DAILY [facility] Last Admin: 10/07/17 09:15 Dose: 10 mg Aspirin (Aspirin Chewable) 81 mg PO DAILY [facility] Last Admin: 10/07/17 09:15 Dose: 81 mg Calcium Carbonate (Oscal) 500 mg PO BID [facility] Last Admin: 10/07/17 09:15 Dose: 500 mg Carvedilol (Coreg) 25 mg PO BID [facility] Last Admin: 10/07/17 09:14 Dose: 25 mg Clonidine HCl (Catapres-Tts3 0.3 Mg/24 Hr) 1 patch TD Q7D@1000 [facility] Last Admin: 10/03/17 10:10 Dose: 1 patch Docusate Sodium (Colace) 100 mg PO TID PRN PRN Reason: Constipation Ergocalciferol (Drisdol 50,000 Intl Units Cap) 1 cap PO Q7D [facility] Last Admin: 10/03/17 01:54 Dose: Not Given Hydromorphone HCl (Dilaudid) 1 mg IVP Q4H PRN PRN Reason: Pain, moderate (4-7) Last Admin: 10/07/17 09:16 Dose: 1 mg Insulin Glargine (Lantus) 10 unit SC HS [facility] Last Admin: 10/06/17 21:42 Dose: Not Given Insulin Human Regular (Novolin R) 0 unit SC [facility] PRN Reason: Protocol Last Admin: 10/07/17 08:30 Dose: 4 unit Isosorbide Mononitrate (Imdur Er) 90 mg PO DAILY [facility] Last Admin: 10/07/17 09:14 Dose: 90 mg Lactulose (Enulose) 20 gm PO DAILY [facility] Last Admin: 10/07/17 09:26 Dose: Not Given Metronidazole (Flagyl) 500 mg PO DAILY [facility] Last Admin: 10/07/17 09:15 Dose: 500 mg Montelukast Sodium (Singulair) 10 mg PO DAILY [facility] Last Admin: 10/07/17 09:15 Dose: 10 mg Ondansetron HCl (Zofran Inj) 4 mg IVP Q6H PRN PRN Reason: Nausea/Vomiting Last Admin: 10/04/17 08:36 Dose: 4 mg Pantoprazole Sodium (Protonix Ec Tab) 40 mg PO DAILY [facility] Last Admin: 10/07/17 09:14 Dose: 40 mg Polyethylene Glycol (Miralax) 17 gm PO DAILY [facility] Last Admin: 10/07/17 09:26 Dose: Not Given Rosuvastatin Calcium (Crestor) 10 mg PO HS [facility] Last Admin: 10/06/17 21:41 Dose: 10 mg Sertraline HCl (Zoloft) 50 mg PO DAILY [facility] Last Admin: 10/07/17 09:14 Dose: 50 mg Vancomycin HCl (Vancocin (Oral Or Rectal Use)) 500 mg PO DAILY [facility] Last Admin: 10/07/17 09:46 Dose: 500 mg Vitamin B Complex/Vit C/Folic Acid (Nephro-Cuortney) 1 tab PO 0800 [facility] Last Admin: 10/07/17 08:47 Dose: 1 tab - Labs Labs: 10/05/17 06:39 10/05/17 06:39 PT 11.5 SECONDS (9.7-12.2) 10/02/17 22:41 INR 1.0 10/02/17 22:41 APTT 33 SECONDS (21-34) 10/02/17 22:41
[2017-10-07 12:06] LABS: BASO % 0.2 % (0.0-2.0); EOS # 0.3 K/uL (0.0-0.7); EOS % 2.4 % (0.0-4.0); HEMOGLOBIN 8.2 g/dL (12.0-18.0); LYMPH # 3.2 K/uL (1.0-4.3); LYMPH % 27.9 % (20.0-40.0); MEAN CELL VOLUME 92.5 fL (80.0-94.0); MEAN CORPUSCULAR HGB CONC 33.5 g/dL (33.0-37.0); MEAN PLATELET VOLUME 9.1 fL (7.2-11.7); MONO # 0.8 K/uL (0.0-0.8); MONO % 7.5 % (0.0-10.0); RBC 2.66 Mil/uL (4.40-5.90); RED CELL DISTRIBUTION WIDTH 17.9 % (11.5-14.5); WHITE BLOOD COUNT 11.3 K/uL (4.8-10.8)
[2017-10-07 12:09] LABS: ALB/GLOB RATIO 1.1 (1.0-2.1); ALBUMIN 3.6 g/dL (3.5-5.0); CALCIUM 9.2 mg/dl (8.6-10.4)
--- NOTE | 2017-10-07 15:10 | PN ---
DATE: 10/07/2017 LOCATION: Room 552, bed B. SUBJECTIVE: This is a 37 years -old male, seen and examined in rounds with still intermittent period of diarrhea without reported active bleeding, but his diarrhea subsequently decreased in frequency, with a complaint of persistent abdominal pain with nausea, but no vomiting. The entire chart is reviewed including, but not limited to the most recent lab and radiology study results, current and previous medication list, current and previous medical events as well as allergy to medical list. Case discussed with the staff at length. Today's lab show blood glucose level of 266, the patient is still on hemodialysis. PHYSICAL EXAMINATION: GENERAL: A 37 years male, legally blind. VITAL SIGNS: Afebrile with pulse of 64, blood pressure of 126/66, respiratory rate 20 to 22. HEENT: Showed mildly pale, dry oral mucoid membrane. Nonicteric sclera. LUNGS: Few scattered crepitation with decreased air entry at base. HEART: Positive S1 and S2. ABDOMEN: Soft. Bowel sounds are present with mild distention and generalized tenderness. No mass or organomegaly. No rebound tenderness or guarding. EXTREMITIES: Evidence of bilateral below knee amputation. No clubbing or cyanosis. NEUROLOGIC: No reported new focal neurological deficit, sensory or motor. IMPRESSION: 1. Acute episode of pseudomembranous colitis with diarrhea, slightly improving. 2. Abnormal x-ray of the abdomen indicative of constipation. 3. Poorly controlled diabetes mellitus with diabetic gastroparesis. 4. Peptic ulcer disease. 5. Poorly controlled hypertension. 6. End-stage renal disease, on hemodialysis. 7. Anemia, most likely secondary to above. 8. Known history of depression, hypothyroidism. SUGGESTION: 1. Continue current management. 2. Repeat stool for C. diff, if it is still positive then rifampin 350 mg 1 tablet p.o. to be added. 3. Further recommendation to follow. Tamiko Conde MD
--- NOTE | 2017-10-07 17:54 | CP.PCM.PN ---
Subjective - Date & Time of Evaluation Date of Evaluation: 10/07/17 Time of Evaluation: 17:52 - Subjective Subjective: less abd pain still diareha 2 adi today Objective - Vital Signs/Intake and Output Vital Signs (last 24 hours): Temp Pulse Resp BP Pulse Ox 98.2 F 68 20 136/82 98 10/07/17 16:16 10/07/17 16:16 10/07/17 16:16 10/07/17 17:44 10/07/17 16:16 Intake and Output: 10/07/17 10/07/17 06:59 18:59 Intake Total 150 Balance 150 - Medications Medications: Current Medications Albuterol/Ipratropium (Duoneb 3 Mg/0.5 Mg (3 Ml) Ud) 3 ml INH RQID [facility] Last Admin: 10/07/17 17:01 Dose: Not Given Amiodarone HCl (Cordarone) 200 mg PO DAILY [facility] Last Admin: 10/07/17 09:45 Dose: 200 mg Amlodipine Besylate (Norvasc) 10 mg PO DAILY [facility] Last Admin: 10/07/17 09:15 Dose: 10 mg Aspirin (Aspirin Chewable) 81 mg PO DAILY [facility] Last Admin: 10/07/17 09:15 Dose: 81 mg Calcium Carbonate (Oscal) 500 mg PO BID [facility] Last Admin: 10/07/17 17:43 Dose: 500 mg Carvedilol (Coreg) 25 mg PO BID [facility] Last Admin: 10/07/17 17:44 Dose: 25 mg Clonidine HCl (Catapres-Tts3 0.3 Mg/24 Hr) 1 patch TD Q7D@1000 [facility] Last Admin: 10/03/17 10:10 Dose: 1 patch Docusate Sodium (Colace) 100 mg PO TID PRN PRN Reason: Constipation Epoetin Tom (Procrit) 10,000 unit SC TTS [facility] Ergocalciferol (Drisdol 50,000 Intl Units Cap) 1 cap PO Q7D [facility] Last Admin: 10/03/17 01:54 Dose: Not Given Hydromorphone HCl (Dilaudid) 1 mg IVP Q4H PRN PRN Reason: Pain, moderate (4-7) Last Admin: 10/07/17 17:42 Dose: 1 mg Insulin Detemir (Levemir) 14 unit SC DAILY [facility] Insulin Human Regular (Novolin R) 0 unit SC ACHS [facility] PRN Reason: Protocol Last Admin: 10/07/17 17:43 Dose: 4 unit Isosorbide Mononitrate (Imdur Er) 90 mg PO DAILY [facility] Last Admin: 10/07/17 09:14 Dose: 90 mg Lactulose (Enulose) 20 gm PO DAILY [facility] Last Admin: 10/07/17 09:26 Dose: Not Given Metronidazole (Flagyl) 500 mg PO DAILY [facility] Last Admin: 10/07/17 09:15 Dose: 500 mg Montelukast Sodium (Singulair) 10 mg PO DAILY [facility] Last Admin: 10/07/17 09:15 Dose: 10 mg Ondansetron HCl (Zofran Inj) 4 mg IVP Q6H PRN PRN Reason: Nausea/Vomiting Last Admin: 10/04/17 08:36 Dose: 4 mg Pantoprazole Sodium (Protonix Ec Tab) 40 mg PO DAILY [facility] Last Admin: 10/07/17 09:14 Dose: 40 mg Polyethylene Glycol (Miralax) 17 gm PO DAILY [facility] Last Admin: 10/07/17 09:26 Dose: Not Given Rosuvastatin Calcium (Crestor) 10 mg PO HS [facility] Last Admin: 10/06/17 21:41 Dose: 10 mg Sertraline HCl (Zoloft) 50 mg PO DAILY [facility] Last Admin: 10/07/17 09:14 Dose: 50 mg Vancomycin HCl (Vancocin (Oral Or Rectal Use)) 500 mg PO DAILY [facility] Last Admin: 10/07/17 09:46 Dose: 500 mg Vitamin B Complex/Vit C/Folic Acid (Nephro-Courtney) 1 tab PO 0800 [facility] Last Admin: 10/07/17 08:47 Dose: 1 tab - Labs Labs: 10/07/17 11:37 10/07/17 11:37 PT 11.5 SECONDS (9.7-12.2) 10/02/17 22:41 INR 1.0 10/02/17 22:41 APTT 33 SECONDS (21-34) 10/02/17 22:41 - Constitutional Appears: No Acute Distress - Head Exam Head Exam: ATRAUMATIC - Eye Exam Eye Exam: Conjunctival injection - ENT Exam ENT Exam: Mucous Membranes Dry - Neck Exam Neck Exam: Full ROM - Respiratory Exam Respiratory Exam: Clear to Ausculation Bilateral - Cardiovascular Exam Cardiovascular Exam: REGULAR RHYTHM - GI/Abdominal Exam GI & Abdominal Exam: Tenderness - Rectal Exam Rectal Exam: NORMAL INSPECTION - Psychiatric Exam Psychiatric exam: Anxious - Skin Skin Exam: Normal Color, Pallor Assessment and Plan - Assessment and Plan (Free Text) Assessment: ac colitis c def infection dmid uncontroled esrf htn Plan: as per orders
[2017-10-07] MEDS: Insulin Detemir 100 units/ml Vial (Levemir) SC SCH (22:13)
[2017-10-08] MEDS: (Novolin R) Insulin Human Regular 100 units/ml vial SC SCH ×5 (00:13→23:26)
[2017-10-08] MEDS: Albuterol-Ipratrop 3 mg / 0.5 (3 ml) UD INH SCH (08:11)
--- NOTE | 2017-10-08 09:43 | CP.PCM.PN ---
Subjective - Date & Time of Evaluation Date of Evaluation: 10/08/17 Time of Evaluation: 09:41 - Subjective Subjective: less abd pain still has diarehea Objective - Vital Signs/Intake and Output Vital Signs (last 24 hours): Temp Pulse Resp BP Pulse Ox 97.5 F L 65 20 134/61 97 10/08/17 07:10 10/08/17 07:40 10/08/17 07:10 10/08/17 07:10 10/08/17 07:10 Intake and Output: 10/08/17 10/08/17 06:59 18:59 Intake Total 100 Balance 100 - Medications Medications: Current Medications Amiodarone HCl (Cordarone) 200 mg PO DAILY [facility] Last Admin: 10/07/17 09:45 Dose: 200 mg Amlodipine Besylate (Norvasc) 10 mg PO DAILY [facility] Last Admin: 10/07/17 09:15 Dose: 10 mg Aspirin (Aspirin Chewable) 81 mg PO DAILY [facility] Last Admin: 10/07/17 09:15 Dose: 81 mg Calcium Carbonate (Oscal) 500 mg PO BID [facility] Last Admin: 10/07/17 17:43 Dose: 500 mg Carvedilol (Coreg) 25 mg PO BID [facility] Last Admin: 10/07/17 17:44 Dose: 25 mg Clonidine HCl (Catapres-Tts3 0.3 Mg/24 Hr) 1 patch TD Q7D@1000 [facility] Last Admin: 10/03/17 10:10 Dose: 1 patch Docusate Sodium (Colace) 100 mg PO TID PRN PRN Reason: Constipation Epoetin Tom (Procrit) 10,000 unit SC TTS [facility] Ergocalciferol (Drisdol 50,000 Intl Units Cap) 1 cap PO Q7D [facility] Last Admin: 10/03/17 01:54 Dose: Not Given Hydromorphone HCl (Dilaudid) 1 mg IVP Q4H PRN PRN Reason: Pain, moderate (4-7) Last Admin: 10/08/17 06:12 Dose: 1 mg Insulin Detemir (Levemir) 14 unit SC DAILY [facility] Last Admin: 10/07/17 22:13 Dose: Not Given Insulin Human Regular (Novolin R) 0 unit SC ACHS [facility] PRN Reason: Protocol Last Admin: 10/08/17 08:30 Dose: 2 unit Isosorbide Mononitrate (Imdur Er) 90 mg PO DAILY [facility] Last Admin: 10/07/17 09:14 Dose: 90 mg Metronidazole (Flagyl) 500 mg PO DAILY [facility] Last Admin: 10/07/17 09:15 Dose: 500 mg Montelukast Sodium (Singulair) 10 mg PO DAILY [facility] Last Admin: 10/07/17 09:15 Dose: 10 mg Ondansetron HCl (Zofran Inj) 4 mg IVP Q6H PRN PRN Reason: Nausea/Vomiting Last Admin: 10/04/17 08:36 Dose: 4 mg Pantoprazole Sodium (Protonix Ec Tab) 40 mg PO DAILY [facility] Last Admin: 10/07/17 09:14 Dose: 40 mg Rosuvastatin Calcium (Crestor) 10 mg PO HS [facility] Last Admin: 10/07/17 22:13 Dose: 10 mg Sertraline HCl (Zoloft) 50 mg PO DAILY [facility] Last Admin: 10/07/17 09:14 Dose: 50 mg Vancomycin HCl (Vancocin (Oral Or Rectal Use)) 500 mg PO DAILY [facility] Last Admin: 10/07/17 09:46 Dose: 500 mg Vitamin B Complex/Vit C/Folic Acid (Nephro-Courtney) 1 tab PO 0800 [facility] Last Admin: 10/07/17 08:47 Dose: 1 tab - Labs Labs: 10/07/17 11:37 10/07/17 11:37 PT 11.5 SECONDS (9.7-12.2) 10/02/17 22:41 INR 1.0 10/02/17 22:41 APTT 33 SECONDS (21-34) 10/02/17 22:41 - Constitutional Appears: Non-toxic - Head Exam Head Exam: ATRAUMATIC - Eye Exam Eye Exam: Conjunctival injection - ENT Exam ENT Exam: Mucous Membranes Moist - Neck Exam Neck Exam: Full ROM - Respiratory Exam Respiratory Exam: Clear to Ausculation Bilateral - Cardiovascular Exam Cardiovascular Exam: REGULAR RHYTHM - GI/Abdominal Exam GI & Abdominal Exam: Tenderness, Normal Bowel Sounds - Rectal Exam Rectal Exam: NORMAL INSPECTION - Back Exam Back Exam: CVA tenderness (L) - Psychiatric Exam Psychiatric exam: Normal Affect - Skin Skin Exam: Pallor Assessment and Plan - Assessment and Plan (Free Text) Assessment: ac colitis cdef infection dmid esrf htn Plan: cont as per orders
[2017-10-08] MEDS: Insulin Detemir 100 units/ml Vial (Levemir) SC SCH (10:00)
--- NOTE | 2017-10-08 11:13 | CP.PCM.PN ---
Subjective - Date & Time of Evaluation Date of Evaluation: 10/08/17 Time of Evaluation: 10:45 - Subjective Subjective: Dialysis note He was seen on hemodialysis now. Patient awake and conscious I discussed the order with the dialysis nurse at the bedside No nausea no vomiting no chest pain comfortable Objective - Vital Signs/Intake and Output Vital Signs (last 24 hours): Temp Pulse Resp BP Pulse Ox 98.1 F 71 19 146/70 100 10/08/17 09:55 10/08/17 09:55 10/08/17 09:55 10/08/17 10:40 10/08/17 09:55 Intake and Output: 10/08/17 10/08/17 06:59 18:59 Intake Total 100 Balance 100 - Medications Medications: Current Medications Amiodarone HCl (Cordarone) 200 mg PO DAILY [facility] Last Admin: 10/07/17 09:45 Dose: 200 mg Amlodipine Besylate (Norvasc) 10 mg PO DAILY [facility] Last Admin: 10/07/17 09:15 Dose: 10 mg Aspirin (Aspirin Chewable) 81 mg PO DAILY [facility] Last Admin: 10/07/17 09:15 Dose: 81 mg Calcium Carbonate (Oscal) 500 mg PO BID [facility] Last Admin: 10/07/17 17:43 Dose: 500 mg Carvedilol (Coreg) 25 mg PO BID [facility] Last Admin: 10/07/17 17:44 Dose: 25 mg Cinacalcet (Sensipar) 30 mg PO DAILY [facility] Clonidine HCl (Catapres-Tts3 0.3 Mg/24 Hr) 1 patch TD Q7D@1000 [facility] Last Admin: 10/03/17 10:10 Dose: 1 patch Docusate Sodium (Colace) 100 mg PO TID PRN PRN Reason: Constipation Epoetin Tom (Procrit) 10,000 unit SC TTS [facility] Ergocalciferol (Drisdol 50,000 Intl Units Cap) 1 cap PO Q7D [facility] Last Admin: 10/03/17 01:54 Dose: Not Given Hydromorphone HCl (Dilaudid) 1 mg IVP Q4H PRN PRN Reason: Pain, moderate (4-7) Last Admin: 10/08/17 10:16 Dose: 1 mg Insulin Detemir (Levemir) 14 unit SC DAILY [facility] Last Admin: 10/07/17 22:13 Dose: Not Given Insulin Human Regular (Novolin R) 0 unit SC ACHS [facility] PRN Reason: Protocol Last Admin: 10/08/17 08:30 Dose: 2 unit Isosorbide Mononitrate (Imdur Er) 90 mg PO DAILY [facility] Last Admin: 10/07/17 09:14 Dose: 90 mg Metronidazole (Flagyl) 500 mg PO DAILY [facility] Last Admin: 10/07/17 09:15 Dose: 500 mg Montelukast Sodium (Singulair) 10 mg PO DAILY [facility] Last Admin: 10/07/17 09:15 Dose: 10 mg Ondansetron HCl (Zofran Inj) 4 mg IVP Q6H PRN PRN Reason: Nausea/Vomiting Last Admin: 10/04/17 08:36 Dose: 4 mg Pantoprazole Sodium (Protonix Ec Tab) 40 mg PO DAILY [facility] Last Admin: 10/07/17 09:14 Dose: 40 mg Rosuvastatin Calcium (Crestor) 10 mg PO HS [facility] Last Admin: 10/07/17 22:13 Dose: 10 mg Sertraline HCl (Zoloft) 50 mg PO DAILY [facility] Last Admin: 10/07/17 09:14 Dose: 50 mg Sevelamer Carbonate (Renvela) 2.4 gm PO TIDCC [facility] Vancomycin HCl (Vancocin (Oral Or Rectal Use)) 500 mg PO DAILY [facility] Last Admin: 10/07/17 09:46 Dose: 500 mg Vitamin B Complex/Vit C/Folic Acid (Nephro-Courtney) 1 tab PO 0800 [facility] Last Admin: 10/07/17 08:47 Dose: 1 tab - Labs Labs: 10/07/17 11:37 10/07/17 11:37 PT 11.5 SECONDS (9.7-12.2) 10/02/17 22:41 INR 1.0 10/02/17 22:41 APTT 33 SECONDS (21-34) 10/02/17 22:41 - Constitutional Appears: No Acute Distress - ENT Exam ENT Exam: Mucous Membranes Moist - Respiratory Exam Respiratory Exam: absent: Chest Wall Tenderness - Cardiovascular Exam Cardiovascular Exam: absent: Diastolic murmur, Rubs - GI/Abdominal Exam GI & Abdominal Exam: Soft, Normal Bowel Sounds - Extremities Exam Extremities Exam: absent: Calf Tenderness - Back Exam Back Exam: absent: CVA tenderness (L), CVA tenderness (R) - Neurological Exam Neurological Exam: Alert - Skin Skin Exam: absent: Cyanosis Assessment and Plan (1) CKD (chronic kidney disease) stage V requiring chronic dialysis Assessment & Plan: End stage renal disease receiving hemodialysis now. Patient appears to be stable vital signs stable Sodium bath 138 Potassium bath 2 mEq Bicarbonate bath 34 Ultrafiltration and 1500 mL Patient cardiac status being follow-up by the primary team Hyperphosphatemia and secondary hyperparathyroidism as noted as outpatient. Status: Acute (2) CAD (coronary artery disease) of artery bypass graft Status: Acute
[2017-10-08] MEDS: Sevelamer Carb 2.4 gm/Packet PO SCH ×3 (12:00→18:52)
[2017-10-08] MEDS: Epoetin Alfa 10,000 unit/ml Dialysis SC SCH (12:26)
[2017-10-08] MEDS: Multivitamin Vitamin B Complex (Nephro-Vite) Tab PO SCH (14:15)
[2017-10-08] MEDS: Pantoprazole 40 mg EC Tab PO SCH (14:17)
[2017-10-08] MEDS: Vancomycin 125 MG/5 ML SOLN (ORAL/RECTAL) PO SCH (14:24)
[2017-10-09] MEDS: (Novolin R) Insulin Human Regular 100 units/ml vial SC SCH ×4 (08:30→21:40)
[2017-10-09] MEDS: Multivitamin Vitamin B Complex (Nephro-Vite) Tab PO SCH (08:33)
[2017-10-09] MEDS: Sevelamer Carb 2.4 gm/Packet PO SCH ×3 (09:00→17:35)
[2017-10-09] MEDS: Insulin Detemir 100 units/ml Vial (Levemir) SC SCH ×2 (10:06→17:35)
[2017-10-09] MEDS: Pantoprazole 40 mg EC Tab PO SCH (10:09)
[2017-10-09] MEDS: Vancomycin 125 MG/5 ML SOLN (ORAL/RECTAL) PO SCH (10:10)
[2017-10-09] MEDS ORDERED: Insulin Detemir 100 units/ml Vial (Levemir) SC SCH (10:45)
--- NOTE | 2017-10-09 10:51 | CP.PCM.PN ---
Subjective - Date & Time of Evaluation Date of Evaluation: 10/09/17 Time of Evaluation: 10:47 - Subjective Subjective: has diarhea bs is hi Objective - Vital Signs/Intake and Output Vital Signs (last 24 hours): Temp Pulse Resp BP Pulse Ox 97.8 F 60 20 139/81 100 10/09/17 07:10 10/09/17 07:10 10/09/17 07:10 10/09/17 10:10 10/09/17 07:10 - Medications Medications: Current Medications Amiodarone HCl (Cordarone) 200 mg PO DAILY [facility] Last Admin: 10/09/17 10:08 Dose: 200 mg Amlodipine Besylate (Norvasc) 10 mg PO DAILY [facility] Last Admin: 10/09/17 10:09 Dose: 10 mg Aspirin (Aspirin Chewable) 81 mg PO DAILY [facility] Last Admin: 10/09/17 10:09 Dose: 81 mg Calcium Carbonate (Oscal) 500 mg PO BID [facility] Last Admin: 10/09/17 10:10 Dose: 500 mg Carvedilol (Coreg) 25 mg PO BID [facility] Last Admin: 10/09/17 10:10 Dose: 25 mg Cinacalcet (Sensipar) 30 mg PO DAILY [facility] Last Admin: 10/09/17 10:09 Dose: 30 mg Clonidine HCl (Catapres-Tts3 0.3 Mg/24 Hr) 1 patch TD Q7D@1000 [facility] Last Admin: 10/03/17 10:10 Dose: 1 patch Docusate Sodium (Colace) 100 mg PO TID PRN PRN Reason: Constipation Epoetin Tom (Procrit) 10,000 unit SC TTS [facility] Last Admin: 10/08/17 12:26 Dose: 10,000 unit Ergocalciferol (Drisdol 50,000 Intl Units Cap) 1 cap PO Q7D [facility] Last Admin: 10/03/17 01:54 Dose: Not Given Hydromorphone HCl (Dilaudid) 1 mg IVP Q4H PRN PRN Reason: Pain, moderate (4-7) Last Admin: 10/09/17 07:43 Dose: 1 mg Insulin Detemir (Levemir) 10 unit SC BID [facility] Insulin Human Regular (Novolin R) 0 unit SC ACHS [facility] PRN Reason: Protocol Last Admin: 10/09/17 08:30 Dose: 6 unit Isosorbide Mononitrate (Imdur Er) 90 mg PO DAILY [facility] Last Admin: 10/09/17 10:09 Dose: 90 mg Metronidazole (Flagyl) 500 mg PO DAILY [facility] Last Admin: 10/09/17 10:09 Dose: 500 mg Montelukast Sodium (Singulair) 10 mg PO DAILY [facility] Last Admin: 10/09/17 10:08 Dose: 10 mg Ondansetron HCl (Zofran Inj) 4 mg IVP Q6H PRN PRN Reason: Nausea/Vomiting Last Admin: 10/04/17 08:36 Dose: 4 mg Pantoprazole Sodium (Protonix Ec Tab) 40 mg PO DAILY [facility] Last Admin: 10/09/17 10:09 Dose: 40 mg Rosuvastatin Calcium (Crestor) 10 mg PO HS [facility] Last Admin: 10/08/17 23:41 Dose: 10 mg Sertraline HCl (Zoloft) 50 mg PO DAILY [facility] Last Admin: 10/09/17 10:09 Dose: 50 mg Sevelamer Carbonate (Renvela) 2.4 gm PO TIDCC [facility] Last Admin: 10/09/17 09:00 Dose: 2.4 gm Vancomycin HCl (Vancocin (Oral Or Rectal Use)) 500 mg PO DAILY [facility] Last Admin: 10/09/17 10:10 Dose: 500 mg Vitamin B Complex/Vit C/Folic Acid (Nephro-Courtney) 1 tab PO 0800 [facility] Last Admin: 10/09/17 08:33 Dose: 1 tab - Labs Labs: 10/07/17 11:37 10/07/17 11:37 PT 11.5 SECONDS (9.7-12.2) 10/02/17 22:41 INR 1.0 10/02/17 22:41 APTT 33 SECONDS (21-34) 10/02/17 22:41 - Head Exam Head Exam: NORMAL INSPECTION - Eye Exam Eye Exam: Normal appearance - ENT Exam ENT Exam: Mucous Membranes Dry - Neck Exam Neck Exam: Normal Inspection - Respiratory Exam Respiratory Exam: NORMAL BREATHING PATTERN - Cardiovascular Exam Cardiovascular Exam: REGULAR RHYTHM - GI/Abdominal Exam GI & Abdominal Exam: Tenderness - Rectal Exam Rectal Exam: Deferred - Back Exam Back Exam: CVA tenderness (L) - Neurological Exam Neurological Exam: Oriented x3 - Psychiatric Exam Psychiatric exam: Normal Affect - Skin Skin Exam: Normal Color Assessment and Plan - Assessment and Plan (Free Text) Assessment: dm uncontroled ac diarhea esrf htn cont as per orders Plan: as per order
[2017-10-09 11:23] LABS: BASO # 0.1 K/uL (0.0-0.2); BASO % 0.6 % (0.0-2.0); EOS # 0.3 K/uL (0.0-0.7); EOS % 3.9 % (0.0-4.0); HEMOGLOBIN 8.8 g/dL (12.0-18.0); LYMPH # 2.7 K/uL (1.0-4.3); LYMPH % 30.5 % (20.0-40.0); MEAN CELL VOLUME 93.2 fL (80.0-94.0); MEAN CORPUSCULAR HEMOGLOBIN 31.2 pg (27.0-31.0); MEAN CORPUSCULAR HGB CONC 33.5 g/dL (33.0-37.0); MEAN PLATELET VOLUME 9.3 fL (7.2-11.7); MONO # 0.9 K/uL (0.0-0.8); MONO % 9.6 % (0.0-10.0); NEUT % 55.4 % (50.0-75.0); RBC 2.82 Mil/uL (4.40-5.90)
--- NOTE | 2017-10-09 13:38 | CP.PCM.CON ---
History of Present Illness - History of Present Illness History of Present Illness: 37 y/o with multiple hospital admissions Presents on 10/02/17 for c/o CP, vague abdominal pain and subsequent diarrhea Today: No fevers, chills, angina, dizziness, palpitation, no abd pain , + diarrhea EK09/09/17; NSR, LVH, chronic ST changes lateral, old inferior infarct. 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 moderate pulmonary stenosis Chronic diastolic dysfunction grade 3 Chronic pain Hx of non-compliance with meds and on occasion HD Review of Systems - Review of Systems All systems: reviewed and no additional remarkable complaints except (that in HPI) Past Patient History - Infectious Disease Hx of Infectious Diseases: None - Tetanus Immunizations Tetanus Immunization: >10 years Ago - Past Medical History & Family History Past Medical History?: Yes - Past Social History Smoking Status: Never Smoked - CARDIAC Hx Atrial Fibrillation: Yes Hx Cardia Arrhythmia: Yes Hx Congestive Heart Failure: Yes Hx Hypercholesterolemia: Yes Hx Hypertension: Yes - PULMONARY Hx Asthma: Yes Hx Bronchitis: Yes Hx Chronic Obstructive Pulmonary Disease (COPD): Yes Hx Pneumonia: Yes - NEUROLOGICAL Hx Alzheimer's Disease: Yes Hx Seizures: Yes - HEENT Hx HEENT Problems: Yes Hx Blind: Yes (legally blind) Hx Cataracts: Yes - RENAL Hx Chronic Kidney Disease: Yes Date of Last Dialysis Treatment: 09/28/17 - ENDOCRINE/METABOLIC Hx Hyperthyroidism: No Hx Hypothyroidism: Yes - HEMATOLOGICAL/ONCOLOGICAL Hx Anemia: Yes - INTEGUMENTARY Hx Dermatological Problems: No - MUSCULOSKELETAL/RHEUMATOLOGICAL Hx Arthritis: Yes Hx Falls: No - GASTROINTESTINAL Hx Gall Bladder Disease: Yes Hx Gastritis: Yes - GENITOURINARY/GYNECOLOGICAL Hx Sexually Transmitted Disorders: No - PSYCHIATRIC Hx Anxiety: Yes Hx Depression: Yes Hx Substance Use: No - SURGICAL HISTORY Hx Cholecystectomy: Yes (2011) 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/2009) Hx Coronary Stent: Yes - ANESTHESIA Hx Anesthesia: Yes Hx Anesthesia Reactions: No Hx Malignant Hyperthermia: No Meds Allergies/Adverse Reactions: Allergies Allergy/AdvReac Type Severity Reaction Status Date / Time acetaminophen [From Percocet] Allergy RASH Verified 10/02/17 22:06 atenolol Allergy RASH Verified 10/02/17 22:06 digoxin Allergy RASH Verified 10/02/17 22:06 milk Allergy ITCHING Verified 10/02/17 22:06 morphine Allergy RASH Verified 10/02/17 22:06 oxycodone HCl [From Percocet] Allergy RASH Verified 10/02/17 22:06 - Medications Medications: Current Medications Amiodarone HCl (Cordarone) 200 mg PO DAILY [facility] Last Admin: 10/09/17 10:08 Dose: 200 mg Amlodipine Besylate (Norvasc) 10 mg PO DAILY [facility] Last Admin: 10/09/17 10:09 Dose: 10 mg Aspirin (Aspirin Chewable) 81 mg PO DAILY [facility] Last Admin: 10/09/17 10:09 Dose: 81 mg Calcium Carbonate (Oscal) 500 mg PO BID [facility] Last Admin: 10/09/17 10:10 Dose: 500 mg Carvedilol (Coreg) 25 mg PO BID [facility] Last Admin: 10/09/17 10:10 Dose: 25 mg Cinacalcet (Sensipar) 30 mg PO DAILY [facility] Last Admin: 10/09/17 10:09 Dose: 30 mg Clonidine HCl (Catapres-Tts3 0.3 Mg/24 Hr) 1 patch TD Q7D@1000 [facility] Last Admin: 10/03/17 10:10 Dose: 1 patch Docusate Sodium (Colace) 100 mg PO TID PRN PRN Reason: Constipation Epoetin Tom (Procrit) 10,000 unit SC TTS [facility] Last Admin: 10/08/17 12:26 Dose: 10,000 unit Ergocalciferol (Drisdol 50,000 Intl Units Cap) 1 cap PO Q7D [facility] Last Admin: 10/03/17 01:54 Dose: Not Given Hydromorphone HCl (Dilaudid) 1 mg IVP Q4H PRN PRN Reason: Pain, moderate (4-7) Last Admin: 10/09/17 11:48 Dose: 1 mg Insulin Detemir (Levemir) 10 unit SC BID [facility] Insulin Human Regular (Novolin R) 0 unit SC ACHS [facility] PRN Reason: Protocol Last Admin: 10/09/17 12:30 Dose: 4 unit Isosorbide Mononitrate (Imdur Er) 90 mg PO DAILY [facility] Last Admin: 10/09/17 10:09 Dose: 90 mg Metronidazole (Flagyl) 500 mg PO DAILY [facility] Last Admin: 10/09/17 10:09 Dose: 500 mg Montelukast Sodium (Singulair) 10 mg PO DAILY [facility] Last Admin: 10/09/17 10:08 Dose: 10 mg Ondansetron HCl (Zofran Inj) 4 mg IVP Q6H PRN PRN Reason: Nausea/Vomiting Last Admin: 10/04/17 08:36 Dose: 4 mg Pantoprazole Sodium (Protonix Ec Tab) 40 mg PO DAILY [facility] Last Admin: 10/09/17 10:09 Dose: 40 mg Rosuvastatin Calcium (Crestor) 10 mg PO HS [facility] Last Admin: 10/08/17 23:41 Dose: 10 mg Sertraline HCl (Zoloft) 50 mg PO DAILY [facility] Last Admin: 10/09/17 10:09 Dose: 50 mg Sevelamer Carbonate (Renvela) 2.4 gm PO TIDCC [facility] Last Admin: 10/09/17 12:37 Dose: 2.4 gm Vancomycin HCl (Vancocin (Oral Or Rectal Use)) 500 mg PO DAILY [facility] Last Admin: 10/09/17 10:10 Dose: 500 mg Vitamin B Complex/Vit C/Folic Acid (Nephro-Courtney) 1 tab PO 0800 [facility] Last Admin: 10/09/17 08:33 Dose: 1 tab Physical Exam - Constitutional Appears: Chronically Ill - Head Exam Head Exam: ATRAUMATIC, NORMAL INSPECTION, NORMOCEPHALIC - Eye Exam Eye Exam: absent: Normal appearance - ENT Exam ENT Exam: Mucous Membranes Moist, Normal Oropharynx - Neck Exam Neck exam: Positive for: Normal Inspection - Respiratory Exam Respiratory Exam: Clear to Auscultation Bilateral. absent: Rhonchi, Wheezes - Cardiovascular Exam Cardiovascular Exam: Irregular Rhythm, +S1, +S2, Systolic Murmur - GI/Abdominal Exam GI & Abdominal Exam: Normal Bowel Sounds, Soft. absent: Tenderness - Extremities Exam Extremities exam: Negative for: normal inspection (B/L BKA) Results - Vital Signs Recent Vital Signs: Last Vital Signs Temp 97.8 F 10/09/17 07:10 Pulse 60 10/09/17 07:10 Resp 20 10/09/17 07:10 BP 139/81 10/09/17 10:10 Pulse Ox 100 10/09/17 07:10 - Labs Result Diagrams: 10/09/17 11:00 10/07/17 11:37 Labs: Laboratory Results - last 24 hr 10/08/17 10/08/17 10/08/17 14:43 15:54 20:58 WBC RBC Hgb Hct MCV MCH MCHC RDW Plt Count MPV Neut % (Auto) Lymph % (Auto) Franklin % (Auto) Eos % (Auto) Baso % (Auto) Neut # (Auto) Lymph # (Auto) Franklin # (Auto) Eos # (Auto) Baso # (Auto) POC Glucose (mg/dL) 458 H* 65 C. difficile Ag & Toxin Negative 10/09/17 10/09/17 10/09/17 07:01 11:00 11:15 WBC 9.0 RBC 2.82 L Hgb 8.8 L Hct 26.3 L MCV 93.2 MCH 31.2 H MCHC 33.5 RDW 18.0 H Plt Count 204 MPV 9.3 Neut % (Auto) 55.4 Lymph % (Auto) 30.5 Franklin % (Auto) 9.6 Eos % (Auto) 3.9 Baso % (Auto) 0.6 Neut # (Auto) 5.0 Lymph # (Auto) 2.7 Franklin # (Auto) 0.9 H Eos # (Auto) 0.3 Baso # (Auto) 0.1 POC Glucose (mg/dL) 329 H 254 H C. difficile Ag & Toxin - EKG Data EKG Interpreted by: Myself Assessment & Plan - Assessment and Plan (Free Text) Assessment: 37 y/o with transgender phenotype > DM brittle poorly controlled and hx of non-compliance > HTN is chronic and stable; with hx of non-compliance and sporadic lability > ESRD on HD with hx of non-compliance and missed sessions > PVD s/p bilateral BKA due to recurrent infections and progressive gangrene and non-healing ulcers > Legally blind Coronary artery disease s/p CABG and subsequent PCI all grafts are closed > He remains with preserved LV function and advanced diastolic dysfunction despite diffuse small vessel CAD (too small for PCI) > Recurrent anemia and GI bleed in past and present: deemed not a good candidate for DAPT > cont ASA if tolerated > EKG: AFIB, chronic LVH with strain > BDLN troponin < 0.8 : this is c/w with chronic CHF/diastolic dysfunction and ESRD on top of deman ischemia from chronic non-revascularizable CAD. > Medical therapy remains his most important and sole treatment option at this stage of chronic CAD. > Continue ASA as tolerated, imdur, coreg, high intensity statin; ranexa and titrate these meds as tolerated to achieve optimal BP and HR control. (<120/80 and HR <65). * He unfortunately is not a candidate for any surgical or percutaneous therapy * He has had hx of atrial catheter related thrombus in past ---> he was challenged with AC on many occasions but due to GI bleed deemed unsafe * he has known documented hx of parx AFLUTTER/AFIB Continue amiodarone 200 daily Meds reviewed [id number]-amiodarone: optimal for now Cont HD to maintain volume status
--- NOTE | 2017-10-09 14:20 | CP.PCM.PN ---
Subjective - Date & Time of Evaluation Date of Evaluation: 10/09/17 Time of Evaluation: 14:17 - Subjective Subjective: No significant changes. Patient complaining of intermittent pain to ask for narcotics No nausea or vomiting Objective - Vital Signs/Intake and Output Vital Signs (last 24 hours): Temp Pulse Resp BP Pulse Ox 97.8 F 60 20 139/81 100 10/09/17 07:10 10/09/17 07:10 10/09/17 07:10 10/09/17 10:10 10/09/17 07:10 - Medications Medications: Current Medications Amiodarone HCl (Cordarone) 200 mg PO DAILY [facility] Last Admin: 10/09/17 10:08 Dose: 200 mg Amlodipine Besylate (Norvasc) 10 mg PO DAILY [facility] Last Admin: 10/09/17 10:09 Dose: 10 mg Aspirin (Aspirin Chewable) 81 mg PO DAILY [facility] Last Admin: 10/09/17 10:09 Dose: 81 mg Calcium Carbonate (Oscal) 500 mg PO BID [facility] Last Admin: 10/09/17 10:10 Dose: 500 mg Carvedilol (Coreg) 25 mg PO BID [facility] Last Admin: 10/09/17 10:10 Dose: 25 mg Cinacalcet (Sensipar) 30 mg PO DAILY [facility] Last Admin: 10/09/17 10:09 Dose: 30 mg Clonidine HCl (Catapres-Tts3 0.3 Mg/24 Hr) 1 patch TD Q7D@1000 [facility] Last Admin: 10/03/17 10:10 Dose: 1 patch Docusate Sodium (Colace) 100 mg PO TID PRN PRN Reason: Constipation Epoetin Tom (Procrit) 10,000 unit SC TTS [facility] Last Admin: 10/08/17 12:26 Dose: 10,000 unit Ergocalciferol (Drisdol 50,000 Intl Units Cap) 1 cap PO Q7D [facility] Last Admin: 10/03/17 01:54 Dose: Not Given Hydromorphone HCl (Dilaudid) 1 mg IVP Q4H PRN PRN Reason: Pain, moderate (4-7) Last Admin: 10/09/17 11:48 Dose: 1 mg Insulin Detemir (Levemir) 10 unit SC BID [facility] Insulin Human Regular (Novolin R) 0 unit SC ACHS [facility] PRN Reason: Protocol Last Admin: 10/09/17 12:30 Dose: 4 unit Isosorbide Mononitrate (Imdur Er) 90 mg PO DAILY [facility] Last Admin: 10/09/17 10:09 Dose: 90 mg Metronidazole (Flagyl) 500 mg PO DAILY [facility] Last Admin: 10/09/17 10:09 Dose: 500 mg Montelukast Sodium (Singulair) 10 mg PO DAILY [facility] Last Admin: 10/09/17 10:08 Dose: 10 mg Ondansetron HCl (Zofran Inj) 4 mg IVP Q6H PRN PRN Reason: Nausea/Vomiting Last Admin: 10/04/17 08:36 Dose: 4 mg Pantoprazole Sodium (Protonix Ec Tab) 40 mg PO DAILY [facility] Last Admin: 10/09/17 10:09 Dose: 40 mg Rosuvastatin Calcium (Crestor) 10 mg PO HS [facility] Last Admin: 10/08/17 23:41 Dose: 10 mg Sertraline HCl (Zoloft) 50 mg PO DAILY [facility] Last Admin: 10/09/17 10:09 Dose: 50 mg Sevelamer Carbonate (Renvela) 2.4 gm PO TIDCC [facility] Last Admin: 10/09/17 12:37 Dose: 2.4 gm Vancomycin HCl (Vancocin (Oral Or Rectal Use)) 500 mg PO DAILY [facility] Last Admin: 10/09/17 10:10 Dose: 500 mg Vitamin B Complex/Vit C/Folic Acid (Nephro-Courtney) 1 tab PO 0800 [facility] Last Admin: 10/09/17 08:33 Dose: 1 tab - Labs Labs: 10/09/17 11:00 10/07/17 11:37 PT 11.5 SECONDS (9.7-12.2) 10/02/17 22:41 INR 1.0 10/02/17 22:41 APTT 33 SECONDS (21-34) 10/02/17 22:41 - Constitutional Appears: No Acute Distress - ENT Exam ENT Exam: Mucous Membranes Moist - Neck Exam Neck Exam: absent: Lymphadenopathy - Respiratory Exam Respiratory Exam: absent: Chest Wall Tenderness - Cardiovascular Exam Cardiovascular Exam: REGULAR RHYTHM. absent: Gallop, JVD, Rubs - GI/Abdominal Exam GI & Abdominal Exam: Soft, Normal Bowel Sounds - Extremities Exam Extremities Exam: absent: Calf Tenderness - Back Exam Back Exam: absent: CVA tenderness (L), CVA tenderness (R) - Neurological Exam Neurological Exam: Alert - Psychiatric Exam Psychiatric exam: Normal Affect - Skin Skin Exam: absent: Cyanosis Assessment and Plan (1) CKD (chronic kidney disease) stage V requiring chronic dialysis Assessment & Plan: On neck and his stage renal disease on maintenance hemodialysis TTS. Patient keep coming back to the hospital for a multitude of medical problem for the most part recurrent chest pain and requesting narcotics all the time > DM brittle poorly controlled and hx of non-compliance > HTN is chronic and stable; with hx of non-compliance and sporadic lability > ESRD on HD with hx of non-compliance and missed sessions > PVD s/p bilateral BKA due to recurrent infections and progressive gangrene and non-healing ulcers > Legally blind Coronary artery disease s/p CABG and subsequent PCI all grafts are closed > He remains with preserved LV function and advanced diastolic dysfunction despite diffuse small vessel CAD (too small for PCI) > Recurrent anemia and GI bleed in past and present: deemed not a good candidate for DAPT > cont ASA if tolerated > EKG: AFIB, chronic LVH with strain > BDLN troponin < 0.8 : this is c/w with chronic CHF/diastolic dysfunction and ESRD on top of deman ischemia from chronic non-revascularizable CAD. > Medical therapy remains his most important and sole treatment option at this stage of chronic CAD. > Continue ASA as tolerated, imdur, coreg, high intensity statin; ranexa and titrate these meds as tolerated to achieve optimal BP and HR control. (<120/80 and HR <65). * He unfortunately is not a candidate for any surgical or percutaneous therapy * He has had hx of atrial catheter related thrombus in past ---> he was challenged with AC on many occasions but due to GI bleed deemed unsafe * he has known documented hx of parx AFLUTTER/AFIB Continue amiodarone 200 daily Meds reviewed [id number]-zvmynuyo-amiodarone: optimal for now Cont HD to maintain volume status Status: Acute (2) CAD (coronary artery disease) of artery bypass graft Status: Acute
--- NOTE | 2017-10-09 22:49 | PN ---
DATE: LOCATION: [facility], bed B. SUBJECTIVE: This is a 37-year-old male, seen and examined in rounds with less reported abdominal pain or active bleeding, seen by the operations consultant on the case, report is seen. The entire chart is reviewed including, but not limited to the most recent lab and radiology study results, current and the previous medication list, current and the previous medical events with reported chest pain on and off. Case discussed at length with the staff. Most recent lab results showed low hemoglobin of 8.8, hematocrit 26.3 with normal white blood cells, but with blood glucose level of 82. Stool for C. diff repeated yesterday, reported to be negative. PHYSICAL EXAMINATION GENERAL: An 37-year-old male with intermittent periods of complaint of abdominal pain as well as reported chest pain, evaluated by the operations consultant. VITAL SIGNS: Afebrile with pulse of 74, respiratory rate 20 to 22, and blood pressure 110/58. HEENT: Shows mildly pale dry oral mucous membrane, nonicteric sclerae. LUNGS: Few scattered crepitation. Decreased air entry at bases. HEART: Positive S1 and S2. ABDOMEN: Soft. Bowel sounds are present and hyperactive with mild abdominal distention. No mass or organomegaly. No rebound tenderness or guarding. RECTAL: The patient refused. EXTREMITIES: With evidence of bilateral below-knee amputation. NEUROLOGIC: No reported new neurological deficits, sensory or motor. No focal deficit newly reported. The patient is legally blind. IMPRESSION: 1. Pseudomembranous colitis. 2. Chronic renal failure, on hemodialysis. 3. Poorly-controlled diabetes mellitus with diabetic gastroparesis. 4. Known history of coronary artery disease, status post coronary artery bypass graft. 5. Anemia, most likely secondary to above. 6. Poorly-controlled hypertension. SUGGESTION: 1. Continue current management. 2. T3, T4, TSH followup due to the patient's known history of hypothyroidism, which could be a factor for his change of bowel movement habits in addition to the recently diagnosed pseudomembranous colitis. 3. Sectional abdominal and pelvic CAT scan if his symptoms persist. We will follow up closely with you. Tamiko Conde MD [facility] # [id number]
[2017-10-10] MEDS: Ergocalciferol 50,000 Intl Units Cap PO SCH (05:40)
[2017-10-10] MEDS: (Novolin R) Insulin Human Regular 100 units/ml vial SC SCH ×3 (07:25→17:47)
[2017-10-10] MEDS: HYDROmorphone 0.5 mg/0.5 ml ISec IVP PRN ×3 (08:13→16:34)
[2017-10-10] MEDS: Multivitamin Vitamin B Complex (Nephro-Vite) Tab PO SCH (08:17)
[2017-10-10] MEDS: Sevelamer Carb 2.4 gm/Packet PO SCH ×2 (08:17→12:30)
[2017-10-10 10:12] LABS: CALCIUM 8.7 mg/dl (8.6-10.4)
[2017-10-10] MEDS: Insulin Detemir 100 units/ml Vial (Levemir) SC SCH ×2 (10:40→17:47)
[2017-10-10] MEDS: Epoetin Alfa 10,000 unit/ml Dialysis SC SCH (10:56)
--- NOTE | 2017-10-10 12:58 | CP.PCM.PN ---
Subjective - Date & Time of Evaluation Date of Evaluation: 10/10/17 Time of Evaluation: 12:58 - Subjective Subjective: clinically same No new changes No fevers, chills No angina or CHF worsening Objective - Vital Signs/Intake and Output Vital Signs (last 24 hours): Temp Pulse Resp BP Pulse Ox 98 F 62 17 150/84 100 10/10/17 09:30 10/10/17 09:30 10/10/17 09:30 10/10/17 12:30 10/10/17 09:30 Intake and Output: 10/10/17 10/10/17 06:59 18:59 Intake Total 500 Balance 500 - Medications Medications: Current Medications Amiodarone HCl (Cordarone) 200 mg PO DAILY [facility] Last Admin: 10/09/17 10:08 Dose: 200 mg Amlodipine Besylate (Norvasc) 10 mg PO DAILY [facility] Last Admin: 10/09/17 10:09 Dose: 10 mg Aspirin (Aspirin Chewable) 81 mg PO DAILY [facility] Last Admin: 10/09/17 10:09 Dose: 81 mg Calcium Carbonate (Oscal) 500 mg PO BID [facility] Last Admin: 10/10/17 10:40 Dose: Not Given Carvedilol (Coreg) 25 mg PO BID [facility] Last Admin: 10/10/17 10:40 Dose: Not Given Cinacalcet (Sensipar) 30 mg PO DAILY [facility] Last Admin: 10/09/17 10:09 Dose: 30 mg Clonidine HCl (Catapres-Tts3 0.3 Mg/24 Hr) 1 patch TD Q7D@1000 [facility] Last Admin: 10/03/17 10:10 Dose: 1 patch Docusate Sodium (Colace) 100 mg PO TID PRN PRN Reason: Constipation Epoetin Tom (Procrit) 10,000 unit SC TTS [facility] Last Admin: 10/10/17 10:56 Dose: 10,000 unit Ergocalciferol (Drisdol 50,000 Intl Units Cap) 1 cap PO Q7D [facility] Last Admin: 10/10/17 05:40 Dose: 1 cap Heparin Sodium (Porcine) (Heparin) 3,700 units IVP TTS [facility] Stop: 10/15/17 10:01 Last Admin: 10/10/17 10:55 Dose: 3,700 units Hydromorphone HCl (Dilaudid) 1 mg IVP Q4H PRN PRN Reason: Pain, moderate (4-7) Last Admin: 10/10/17 12:23 Dose: 1 mg Insulin Detemir (Levemir) 10 unit SC BID [facility] Last Admin: 10/10/17 10:40 Dose: Not Given Insulin Human Regular (Novolin R) 0 unit SC ACHS [facility] PRN Reason: Protocol Last Admin: 10/10/17 11:44 Dose: Not Given Isosorbide Mononitrate (Imdur Er) 90 mg PO DAILY [facility] Last Admin: 10/09/17 10:09 Dose: 90 mg Metronidazole (Flagyl) 500 mg PO DAILY [facility] Last Admin: 10/09/17 10:09 Dose: 500 mg Montelukast Sodium (Singulair) 10 mg PO DAILY [facility] Last Admin: 10/09/17 10:08 Dose: 10 mg Ondansetron HCl (Zofran Inj) 4 mg IVP Q6H PRN PRN Reason: Nausea/Vomiting Last Admin: 10/04/17 08:36 Dose: 4 mg Pantoprazole Sodium (Protonix Ec Tab) 40 mg PO DAILY [facility] Last Admin: 10/09/17 10:09 Dose: 40 mg Rosuvastatin Calcium (Crestor) 10 mg PO HS [facility] Last Admin: 10/09/17 21:40 Dose: 10 mg Sertraline HCl (Zoloft) 50 mg PO DAILY [facility] Last Admin: 10/09/17 10:09 Dose: 50 mg Sevelamer Carbonate (Renvela) 2.4 gm PO TIDCC [facility] Last Admin: 10/10/17 08:17 Dose: 2.4 gm Vancomycin HCl (Vancocin (Oral Or Rectal Use)) 500 mg PO DAILY [facility] Last Admin: 10/09/17 10:10 Dose: 500 mg Vitamin B Complex/Vit C/Folic Acid (Nephro-Courtney) 1 tab PO 0800 [facility] Last Admin: 10/10/17 08:17 Dose: 1 tab - Labs Labs: 10/09/17 11:00 10/10/17 09:46 PT 11.5 SECONDS (9.7-12.2) 10/02/17 22:41 INR 1.0 10/02/17 22:41 APTT 33 SECONDS (21-34) 10/02/17 22:41 - Constitutional Appears: No Acute Distress, Chronically Ill - Head Exam Head Exam: ATRAUMATIC - Eye Exam Eye Exam: absent: Normal appearance - ENT Exam ENT Exam: Mucous Membranes Moist, Normal Oropharynx - Respiratory Exam Respiratory Exam: Clear to Ausculation Bilateral, NORMAL BREATHING PATTERN. absent: Rhonchi, Wheezes - Cardiovascular Exam Cardiovascular Exam: Irregular Rhythm, +S1, +S2, Murmur - Neurological Exam Neurological Exam: Alert, Awake, Oriented x3 - Skin Skin Exam: Warm Assessment and Plan - Assessment and Plan (Free Text) Assessment: 37 y/o with transgender phenotype > DM brittle poorly controlled and hx of non-compliance > HTN is chronic and stable; with hx of non-compliance and sporadic lability > ESRD on HD with hx of non-compliance and missed sessions > PVD s/p bilateral BKA due to recurrent infections and progressive gangrene and non-healing ulcers > Legally blind Coronary artery disease s/p CABG and subsequent PCI all grafts are closed > He remains with preserved LV function and advanced diastolic dysfunction despite diffuse small vessel CAD (too small for PCI) > Recurrent anemia and GI bleed in past and present: deemed not a good candidate for DAPT > cont ASA if tolerated > EKG: AFIB, chronic LVH with strain > BDLN troponin < 0.8 : this is c/w with chronic CHF/diastolic dysfunction and ESRD on top of deman ischemia from chronic non-revascularizable CAD. > Medical therapy remains his most important and sole treatment option at this stage of chronic CAD. > Continue ASA as tolerated, imdur, coreg, high intensity statin; ranexa and titrate these meds as tolerated to achieve optimal BP and HR control. (<120/80 and HR <65). * He unfortunately is not a candidate for any surgical or percutaneous therapy * He has had hx of atrial catheter related thrombus in past ---> he was challenged with AC on many occasions but due to GI bleed deemed unsafe * he has known documented hx of parx AFLUTTER/AFIB Continue amiodarone 200 daily Meds reviewed [id number]-qeoynee-irtct-zzoeenmy-amiodarone: optimal for now Cont HD to maintain volume status
[2017-10-10] MEDS: Pantoprazole 40 mg EC Tab PO SCH (14:11)
[2017-10-10] MEDS: Vancomycin 125 MG/5 ML SOLN (ORAL/RECTAL) PO SCH (14:13)
--- NOTE | 2017-10-10 14:58 | CP.PCM.PN ---
Subjective - Date & Time of Evaluation Date of Evaluation: 10/10/17 Time of Evaluation: 14:57 - Subjective Subjective: RENAL FOLLOW UP Assessment: Stable chronic chest pain, diarrhea Diabetic chronic Kidney Disease (E11.22) Hypertensive Chronic Kidney Disease (I12.0) End stage renal disease (N18.6) dependence on hemodialysis (Z99.2) (TTS) via AVF Anemia (D64.9), Hyperphosphatemia (E83.39), Secondary Hyperparathyroidism (E21.1 ), HTN (I12.0) CAD s/p CABG, diastolic CHF, pA flutter/fib, intra-cardiac thrombus, hx of Heparin induced thrombocytopenia, hx of seizure, blindness c diff infection Plan: continue hd tts, seen on hd tolerating well Continue with Nephrovite 1 tab/day. monitor H and H - on epo with hd bp controlled Continue with calcitriol BP control with meds on vanc and flagyl po for diarrhea S: seen and examined on dialysis, complains of persistent diarrhea General Appearance: Comfortable, in no acute respiratory distress, co-operative . Head; Atraumatic, normocephalic ENT: no ulcers EYES: Pt is blind both eyes Neck; supple no lymphadenopathy, no thyromegaly or bruit Lungs: Normal respiratory rate/effort. Breath sounds bilateral equal clear Heart: Normal rate. s1s2 normal. No rub or gallop. Extremities: no edema. No varicose veins. has b/l BKA Neurological: Patient is alert, awake and oriented to person, place and time. No focal deficit. Strength bilateral appropriate and equal Skin: Warm and dry Abdomen: Abdomen is soft. Bowel sounds +. Psych: limited insight and has normal affect/mood Access: permacath Objective - Vital Signs/Intake and Output Vital Signs (last 24 hours): Temp Pulse Resp BP Pulse Ox 96.5 F L 69 17 123/67 100 10/10/17 13:00 10/10/17 13:00 10/10/17 13:00 10/10/17 13:00 10/10/17 13:00 Intake and Output: 10/10/17 10/10/17 06:59 18:59 Intake Total 500 Balance 500 - Medications Medications: Current Medications Amiodarone HCl (Cordarone) 200 mg PO DAILY [facility] Last Admin: 10/10/17 14:12 Dose: 200 mg Amlodipine Besylate (Norvasc) 10 mg PO DAILY [facility] Last Admin: 10/10/17 14:14 Dose: Not Given Aspirin (Aspirin Chewable) 81 mg PO DAILY [facility] Last Admin: 10/10/17 14:12 Dose: 81 mg Calcium Carbonate (Oscal) 500 mg PO BID [facility] Last Admin: 10/10/17 10:40 Dose: Not Given Carvedilol (Coreg) 25 mg PO BID [facility] Last Admin: 10/10/17 10:40 Dose: Not Given Cinacalcet (Sensipar) 30 mg PO DAILY [facility] Last Admin: 10/10/17 14:12 Dose: 30 mg Clonidine HCl (Catapres-Tts3 0.3 Mg/24 Hr) 1 patch TD Q7D@1000 [facility] Last Admin: 10/10/17 14:14 Dose: 1 patch Docusate Sodium (Colace) 100 mg PO TID PRN PRN Reason: Constipation Epoetin Tom (Procrit) 10,000 unit SC TTS [facility] Last Admin: 10/10/17 10:56 Dose: 10,000 unit Ergocalciferol (Drisdol 50,000 Intl Units Cap) 1 cap PO Q7D [facility] Last Admin: 10/10/17 05:40 Dose: 1 cap Heparin Sodium (Porcine) (Heparin) 3,700 units IVP TTS [facility] Stop: 10/15/17 10:01 Last Admin: 10/10/17 10:55 Dose: 3,700 units Hydromorphone HCl (Dilaudid) 1 mg IVP Q4H PRN PRN Reason: Pain, moderate (4-7) Last Admin: 10/10/17 12:23 Dose: 1 mg Insulin Detemir (Levemir) 10 unit SC BID [facility] Last Admin: 10/10/17 10:40 Dose: Not Given Insulin Human Regular (Novolin R) 0 unit SC ACHS [facility] PRN Reason: Protocol Last Admin: 10/10/17 11:44 Dose: Not Given Isosorbide Mononitrate (Imdur Er) 90 mg PO DAILY [facility] Last Admin: 10/10/17 14:13 Dose: 90 mg Metronidazole (Flagyl) 500 mg PO DAILY [facility] Last Admin: 10/10/17 14:12 Dose: 500 mg Montelukast Sodium (Singulair) 10 mg PO DAILY [facility] Last Admin: 10/10/17 14:12 Dose: 10 mg Ondansetron HCl (Zofran Inj) 4 mg IVP Q6H PRN PRN Reason: Nausea/Vomiting Last Admin: 10/04/17 08:36 Dose: 4 mg Pantoprazole Sodium (Protonix Ec Tab) 40 mg PO DAILY [facility] Last Admin: 10/10/17 14:11 Dose: 40 mg Rosuvastatin Calcium (Crestor) 10 mg PO HS [facility] Last Admin: 10/09/17 21:40 Dose: 10 mg Sertraline HCl (Zoloft) 50 mg PO DAILY [facility] Last Admin: 10/10/17 14:12 Dose: 50 mg Sevelamer Carbonate (Renvela) 2.4 gm PO TIDCC [facility] Last Admin: 10/10/17 12:30 Dose: Not Given Vancomycin HCl (Vancocin (Oral Or Rectal Use)) 500 mg PO DAILY [facility] Last Admin: 10/10/17 14:13 Dose: 500 mg Vitamin B Complex/Vit C/Folic Acid (Nephro-Courtney) 1 tab PO 0800 [facility] Last Admin: 10/10/17 08:17 Dose: 1 tab - Labs Labs: 10/09/17 11:00 10/10/17 09:46 PT 11.5 SECONDS (9.7-12.2) 10/02/17 22:41 INR 1.0 10/02/17 22:41 APTT 33 SECONDS (21-34) 10/02/17 22:41
--- NOTE | 2017-10-10 15:28 | CP.PCM.PN ---
Subjective - Date & Time of Evaluation Date of Evaluation: 10/10/17 Time of Evaluation: 15:28 - Subjective Subjective: PATIENT CHEST PAIN AND DIARRHEA; AAOX 3; DENIES CHEST PAIN SOB NAUSEA OR VOMITING; NO SIGN OF DISTRESS NOTED Objective - Vital Signs/Intake and Output Vital Signs (last 24 hours): Temp Pulse Resp BP Pulse Ox 96.5 F L 69 17 123/67 100 10/10/17 13:00 10/10/17 13:00 10/10/17 13:00 10/10/17 13:00 10/10/17 13:00 Intake and Output: 10/10/17 10/10/17 06:59 18:59 Intake Total 500 Balance 500 - Medications Medications: Current Medications Amiodarone HCl (Cordarone) 200 mg PO DAILY [facility] Last Admin: 10/10/17 14:12 Dose: 200 mg Amlodipine Besylate (Norvasc) 10 mg PO DAILY [facility] Last Admin: 10/10/17 14:14 Dose: Not Given Aspirin (Aspirin Chewable) 81 mg PO DAILY [facility] Last Admin: 10/10/17 14:12 Dose: 81 mg Calcium Carbonate (Oscal) 500 mg PO BID [facility] Last Admin: 10/10/17 10:40 Dose: Not Given Carvedilol (Coreg) 25 mg PO BID [facility] Last Admin: 10/10/17 10:40 Dose: Not Given Cinacalcet (Sensipar) 30 mg PO DAILY [facility] Last Admin: 10/10/17 14:12 Dose: 30 mg Clonidine HCl (Catapres-Tts3 0.3 Mg/24 Hr) 1 patch TD Q7D@1000 [facility] Last Admin: 10/10/17 14:14 Dose: 1 patch Docusate Sodium (Colace) 100 mg PO TID PRN PRN Reason: Constipation Epoetin Tom (Procrit) 10,000 unit SC TTS [facility] Last Admin: 10/10/17 10:56 Dose: 10,000 unit Ergocalciferol (Drisdol 50,000 Intl Units Cap) 1 cap PO Q7D [facility] Last Admin: 10/10/17 05:40 Dose: 1 cap Heparin Sodium (Porcine) (Heparin) 3,700 units IVP TTS [facility] Stop: 10/15/17 10:01 Last Admin: 10/10/17 10:55 Dose: 3,700 units Hydromorphone HCl (Dilaudid) 1 mg IVP Q4H PRN PRN Reason: Pain, moderate (4-7) Last Admin: 10/10/17 12:23 Dose: 1 mg Insulin Detemir (Levemir) 10 unit SC BID [facility] Last Admin: 10/10/17 10:40 Dose: Not Given Insulin Human Regular (Novolin R) 0 unit SC ACHS [facility] PRN Reason: Protocol Last Admin: 10/10/17 11:44 Dose: Not Given Isosorbide Mononitrate (Imdur Er) 90 mg PO DAILY [facility] Last Admin: 10/10/17 14:13 Dose: 90 mg Metronidazole (Flagyl) 500 mg PO DAILY [facility] Last Admin: 10/10/17 14:12 Dose: 500 mg Montelukast Sodium (Singulair) 10 mg PO DAILY [facility] Last Admin: 10/10/17 14:12 Dose: 10 mg Ondansetron HCl (Zofran Inj) 4 mg IVP Q6H PRN PRN Reason: Nausea/Vomiting Last Admin: 10/04/17 08:36 Dose: 4 mg Pantoprazole Sodium (Protonix Ec Tab) 40 mg PO DAILY [facility] Last Admin: 10/10/17 14:11 Dose: 40 mg Rosuvastatin Calcium (Crestor) 10 mg PO HS [facility] Last Admin: 10/09/17 21:40 Dose: 10 mg Sertraline HCl (Zoloft) 50 mg PO DAILY [facility] Last Admin: 10/10/17 14:12 Dose: 50 mg Sevelamer Carbonate (Renvela) 2.4 gm PO TIDCC [facility] Last Admin: 10/10/17 12:30 Dose: Not Given Vancomycin HCl (Vancocin (Oral Or Rectal Use)) 500 mg PO DAILY [facility] Last Admin: 10/10/17 14:13 Dose: 500 mg Vitamin B Complex/Vit C/Folic Acid (Nephro-Courtney) 1 tab PO 0800 [facility] Last Admin: 10/10/17 08:17 Dose: 1 tab - Labs Labs: 10/09/17 11:00 10/10/17 09:46 PT 11.5 SECONDS (9.7-12.2) 10/02/17 22:41 INR 1.0 10/02/17 22:41 APTT 33 SECONDS (21-34) 10/02/17 22:41 Assessment and Plan - Assessment and Plan (Free Text) Assessment: PATIENT SEEN AND EXAMINED AT THE BEDSIDE BREATHING BETTER LUNG SOUND CLEAR JUST FINISHED DIALYSIS STOOL CDIFF IS NEG PATIENT HAVING FORM STOOL AFEBRILE VITALS STABLE AND NO SIGN OF DISTRESS NOTED DISCUSS WITH DR BELL WHO CLEAR PATEINT TO DC FOLLOW UP WITH DR BELL IN HER OFFICE 1-2 WEEK ---CALL FOR APPOINTMENT CONTINUE ALL YOUR HOME MEDICATION NEW PRESCRIPTION GIVEN IMODIUM 2 MG BY MOUTH DAILY FOR 2 DAYS ACTIVITY TOLERATED DIALYSIS ORDER CALL DR BELL OR GO THE EMERGENCY ROOM IF SYMPTOMS RETURN OR WORESENING DISCUSS WITH PATIENT WHO AGREE AND VERBALIZED UNDERSTANDING
[2017-10-10 16:21] VITALS: PULSE 75; RESP 20; TEMP 97.6; O2SAT 98
--- NOTE | 2017-10-10 16:59 | PCM.HF ---
Heart Failure Core Measure - Heart Failure Ejection Fraction: 40 % or Greater RAÚL Inhibitor Prescribed: Yes Contraindication/Reason for not providing: ESRD Beta-Andrew Prescribed: Carvedilol Angiotensin II Receptor Andrew Prescribed: No Contraindication/Reason for not providing: ESRD AnticoagulationTherapy for Atrial Fibrillation/Atrialflutter: No Contraindication/Reason for not providing: HSX OF BLEEDING Aldosterone Antagonist Prescribed: No Contraindication/Reason for not providing: ESRD Hydralazine Nitrate Prescribed: Yes Implantable Cardioverter Defibrillator Therapy: No Contraindication/Reason for not providing: EF IS GREATER THAN 40 Cardiac Resynchronization Therapy Prescribed: No Contraindication/Reason for not providing: EF IS GREATER THAN 40 - Follow up Will be discharged to: Home Follow Up Date (must be within 7 days from discharge): 10/16/17 Follow Up Time: 09:00
[2017-10-10 17:48] VITALS: BP 130/70
--- NOTE | 2017-10-11 11:32 | PN ---
DATE: 10/10/2017 The patient is getting hemodialysis. Chest pain decreased. Supportive care has been Cardiology. Kimberly Liao MD
== END 2017-10-10 20:05 | disposition home or self-care (01) | DRG 121 ==
LOC: C.ER 21:46 → C.9E 10-03 00:03 → C.5S 10-03 16:25
PROVIDERS: ADMIT Internal Medicine; ATTEND Internal Medicine
PROC: 5A1D70Z Performance of Urinary Filtration, Intermittent, Less than 6 Hours Per Day (ICD-10-PCS; principal; 2017-10-05)
PROC: 5A1D70Z Performance of Urinary Filtration, Intermittent, Less than 6 Hours Per Day (ICD-10-PCS; 2017-10-08)
PROC: 5A1D70Z Performance of Urinary Filtration, Intermittent, Less than 6 Hours Per Day (ICD-10-PCS; 2017-10-10)
DX: I21.4 Non-ST elevation (NSTEMI) myocardial infarction (principal); I13.2 Hypertensive heart and chronic kidney disease with heart failure and with stage 5 chronic kidney disease, or end stage renal disease; E11.22 Type 2 diabetes mellitus with diabetic chronic kidney disease; K31.84 Gastroparesis; A04.72 Enterocolitis due to Clostridium difficile, not specified as recurrent; E83.39 Other disorders of phosphorus metabolism; E11.51 Type 2 diabetes mellitus with diabetic peripheral angiopathy without gangrene; E11.43 Type 2 diabetes mellitus with diabetic autonomic (poly)neuropathy; I50.32 Chronic diastolic (congestive) heart failure; J44.9 Chronic obstructive pulmonary disease, unspecified; N18.6 End stage renal disease; I51.3 Intracardiac thrombosis, not elsewhere classified; I25.10 Atherosclerotic heart disease of native coronary artery without angina pectoris; G30.9 Alzheimer's disease, unspecified; N25.81 Secondary hyperparathyroidism of renal origin; G89.29 Other chronic pain; E11.65 Type 2 diabetes mellitus with hyperglycemia; K59.00 Constipation, unspecified; F64.9 Gender identity disorder, unspecified; D63.8 Anemia in other chronic diseases classified elsewhere; H54.8 Legal blindness, as defined in USA; E03.9 Hypothyroidism, unspecified; F02.80 Dementia in other diseases classified elsewhere, unspecified severity, without behavioral disturbance, psychotic disturbance, mood disturbance, and anxiety; I48.2 Chronic atrial fibrillation; E78.00 Pure hypercholesterolemia, unspecified; K29.70 Gastritis, unspecified, without bleeding; K27.9 Peptic ulcer, site unspecified, unspecified as acute or chronic, without hemorrhage or perforation; Z99.2 Dependence on renal dialysis; Z87.01 Personal history of pneumonia (recurrent); Z87.11 Personal history of peptic ulcer disease; Z86.73 Personal history of transient ischemic attack (TIA), and cerebral infarction without residual deficits; Z89.511 Acquired absence of right leg below knee; Z89.512 Acquired absence of left leg below knee; Z90.49 Acquired absence of other specified parts of digestive tract; Z91.14 Patient's other noncompliance with medication regimen; Z95.1 Presence of aortocoronary bypass graft; Z95.5 Presence of coronary angioplasty implant and graft; Z91.19 Patient's noncompliance with other medical treatment and regimen

== ENCOUNTER 2017-10-13 14:48 | Observation (INO) | payer MEDICARE, OTHER ==
[2017-10-13 14:48] VITALS: PULSE 66; BMI 18.8
--- NOTE | 2017-10-13 15:09 | C.PDOC ---
History Of Present Illness 37 y/o male with a history of end stage renal disease, presents to the ER complaining of chest pain. Patient was recently hospitalized and discharged 5 days ago. States he has been having persistent soft, mushy stool since then. Today he developed chest pain. Denies associated diaphoresis, shortness of breath, vomiting, or nausea. Patient was scheduled for dialysis yesterday, but did not go due to his mushy stool. Time Seen by Provider: 10/13/17 14:57 Chief Complaint (Nursing): Chest Pain History Per: Patient History/Exam Limitations: no limitations Onset/Duration Of Symptoms: Days (x1) Past Medical History Reviewed: Historical Data, Nursing Documentation, Vital Signs Vital Signs: Last Vital Signs Temp 97.8 F 10/13/17 14:48 Pulse 70 10/13/17 14:48 Resp 18 10/13/17 14:48 BP 128/67 10/13/17 14:48 Pulse Ox 93 L 10/13/17 15:16 - Medical History PMH: Alzheimer's Disease, Anemia, Anxiety, Arthritis, Asthma, Atrial Fibrillation, Bronchitis, CAD, Cardia Arrhythmia, CHF, COPD, CVA, Depression, Diabetes, Deep Vein Thrombosis, Gastritis, Gastrointestinal Ulcer, Gall Bladder Disease, HTN, Hypercholesterolemia, Hypothyroidism, Pneumonia, End Stage Renal Disease, Chronic Kidney Disease, Seizures Denies: Hyperthyroidism, Sexually Transmitted Disease Surgical History: CABG (12/2009), Cholecystectomy (2011), Coronary Stent - [facility] (10/03/17) ABDOMINAL WALL SINOGRAM (12/31/13) C.A.T. SCAN OF ABDOMEN (10/31/13) CENTRAL VENOUS CATHETER PLACEMENT WITH GUIDANCE (02/10/15) CHANGE OTHER DEVICE IN TRUNK SUBCU/FASCIA, INSURANCE ADVISER APPROACH (06/01/17) DILATE R ANT TIB ART W DRUG-ELUT INTRALUM, PERC (08/12/15) DILATION OF LEFT FEMORAL ARTERY, PERCUTANEOUS APPROACH (07/04/16) DILATION OF RIGHT FEMORAL ARTERY, PERCUTANEOUS APPROACH (08/12/15) DILATION OF RIGHT POPLITEAL ARTERY, PERCUTANEOUS APPROACH (08/12/15) DX ULTRASOUND-HEART (01/05/13) ENTERAL INFUSION OF CONCENTRATED NUT. SUBSTANCES (06/28/13) EXCIS DEBRIDE OF WOUND, INFECT, OR BURN (08/03/14) EXCISION OF STOMACH, ENDO, DIAGN (03/03/17) EXTIRPATION OF MATTER FROM L FEM ART, PERC APPROACH (07/04/16) EXTIRPATION OF MATTER FROM R FEM ART, PERC APPROACH (08/12/15) EXTIRPATION OF MATTER FROM R POPL ART, PERC APPROACH (08/12/15) FLUOROSCOPY OF L LOW EXTREM ART USING L OSM CONTRAST (08/12/15) FLUOROSCOPY OF R LOW EXTREM ART USING L OSM CONTRAST (08/12/15) FLUOROSCOPY OF RIGHT JUGULAR VEINS, GUIDANCE (06/01/17) FREE SKIN GRAFT NEC (08/03/14) HEAD SOFT TISS X-RAY NEC (04/15/13) HEMODIALYSIS (04/28/15) INCIS W REM OF FORIEGN BODY OR DEV FROM SKIN & SUBCUT TISSUE (08/08/13) INSERT INFUSION DEV IN R INT JUGULAR VEIN, PERC (06/01/17) INSERTION OF INFUSION DEV INTO R SUBCLAV VEIN, PERC APPROACH (01/19/16) INSERTION OF INFUSION DEV INTO SUP VENA CAVA, PERC APPROACH (05/17/17) INSPECTION OF UPPER INTESTINAL TRACT, ENDO (03/03/17) INTRODUCE OF OTH THROMBOLYTIC INTO PERIPH ART, PERC APPROACH (08/12/15) LAPAROSCOPIC CHOLECYSTECTOMY (09/21/13) LOC EXC LES METATAR/TAR (06/01/14) PACKED CELL TRANSFUSION (06/01/14) PERCUTAN LIVER ASPIRAT (12/31/13) PERFORMANCE OF URINARY FILTRATION, MULTIPLE (05/17/17) PERFORMANCE OF URINARY FILTRATION, SINGLE (12/18/16) SKIN & SUBQ INCISION NEC (10/24/14) TETANUS TOXOID ADMINIST (06/13/14) TRANSFUSE NONAUT RED BLOOD CELLS IN PERIPH VEIN, PERC (04/09/17) ULTRASONOGRAPHY OF RIGHT AND LEFT HEART (04/09/17) ULTRASONOGRAPHY OF SUPERIOR VENA CAVA, GUIDANCE (02/20/17) VENOUS CATHETERIZATION FOR RENAL DIALYSIS (08/08/13) VENOUS CATHETERIZATION NEC (04/30/13) Family History: States: No Known Family Hx - Social History Hx Tobacco Use: No Hx Alcohol Use: No Hx Substance Use: No - Immunization History Hx Tetanus Toxoid Vaccination: Yes Hx Influenza Vaccination: Yes Hx Pneumococcal Vaccination: Yes Review Of Systems Constitutional: Negative for: Fever Cardiovascular: Positive for: Chest Pain. Negative for: Palpitations Respiratory: Negative for: Shortness of Breath Gastrointestinal: Positive for: Diarrhea ("mushy stool"). Negative for: Nausea , Vomiting, Abdominal Pain Musculoskeletal: Negative for: Back Pain Neurological: Positive for: Weakness Physical Exam - Physical Exam Appears: Non-toxic, No Acute Distress Skin: Normal Color, Warm, Dry Head: Atraumatic, Normacephalic Eye(s): bilateral: PERRL, EOMI Neck: Normal ROM Chest: Symmetrical Cardiovascular: Murmur Respiratory: Normal Breath Sounds, No Accessory Muscle Use, No Rhonchi, No Wheezing Gastrointestinal/Abdominal: Normal Exam, Soft, No Tenderness, No Distention Extremity: Other (Bilateral BKA noted) Neurological/Psych: Oriented x3, Normal Speech ED Course And Treatment - Laboratory Results Result Diagrams: 10/13/17 16:14 10/13/17 16:14 Lab Interpretation: Abnormal (K+ 6.2, BUN 83, Cr 7.0 Glucose 337, Hgb 9.1, Hct 27.5) ECG: Interpreted By Me ECG Rhythm: Sinus Rhythm (LVH with wide QRS) O2 Sat by Pulse Oximetry: 93 Pulse Ox Interpretation: Normal Reevaluation Time: 16:59 Reassessment Condition: Improved - Physician Consult Information Time Consulting Physician Contacted: 16:59 Physician Contacted: Sybil Li Outcome Of Conversation: she will keep patient in hospital for dialysis and cardiac observation. Medical Decision Making Medical Decision Making: Time: 15:07 Initial Plan: * EKG * CMP * Troponin I * CBC * Reassessment Disposition - Disposition Disposition: HOSPITALIZED Disposition Time: 16:59 Condition: STABLE - POA Present On Arrival: Poor Glycemic Control - Clinical Impression Clinical Impression: Uncontrolled diabetes mellitus, ESRD on hemodialysis, Chest pain, Hyperkalemia - Scribe Statement The provider has reviewed the documentation as recorded by the Fabiola Jones Provider Attestation: All medical record entries made by the Fabiola were at my direction and personally dictated by me. I have reviewed the chart and agree that the record accurately reflects my personal performance of the history, physical exam, medical decision making, and the department course for this patient. I have also personally directed, reviewed, and agree with the discharge instructions and disposition.
[2017-10-13 16:21] LABS: BASO # 0.1 K/uL (0.0-0.2); BASO % 0.9 % (0.0-2.0); EOS # 0.3 K/uL (0.0-0.7); EOS % 2.9 % (0.0-4.0); HEMOGLOBIN 9.1 g/dL (12.0-18.0); LYMPH # 3.2 K/uL (1.0-4.3); LYMPH % 30.3 % (20.0-40.0); MEAN CELL VOLUME 94.1 fL (80.0-94.0); MEAN CORPUSCULAR HEMOGLOBIN 31.3 pg (27.0-31.0); MEAN CORPUSCULAR HGB CONC 33.3 g/dL (33.0-37.0); MEAN PLATELET VOLUME 9.2 fL (7.2-11.7); MONO # 0.6 K/uL (0.0-0.8); MONO % 6.2 % (0.0-10.0); NEUT # 6.2 K/uL (1.8-7.0); NEUT % 59.7 % (50.0-75.0); NRBC % 0.1 % (0.0-2.0); RBC 2.92 Mil/uL (4.40-5.90); RED CELL DISTRIBUTION WIDTH 18.7 % (11.5-14.5); WHITE BLOOD COUNT 10.5 K/uL (4.8-10.8)
[2017-10-13 16:41] LABS: ALB/GLOB RATIO 1.1 (1.0-2.1); ALBUMIN 4.1 g/dL (3.5-5.0); CALCIUM 9.4 mg/dl (8.6-10.4)
[2017-10-13 16:44] LABS: TROPONIN I 0.017 ng/mL (0.00-0.120)
[2017-10-14] MEDS ORDERED: Sod Polystyrene Sulf 15 gm/60 ml Susp PO ONE (00:08)
[2017-10-14] MEDS ORDERED: Sod Polystyrene Sulf 15 gm/60 ml Susp ONE (01:57)
[2017-10-14] MEDS: (Novolin R) Insulin Human Regular 100 units/ml vial SC SCH ×2 (09:26→15:06)
[2017-10-14] MEDS ORDERED: (Novolin R) Insulin Human Regular 100 units/ml vial ONE (09:31)
--- NOTE | 2017-10-14 12:46 | CP.PCM.CON ---
History of Present Illness - History of Present Illness History of Present Illness: PER ER documentation: 37 y/o male with a history of end stage renal disease, presents to the ER complaining of chest pain. Patient was recently hospitalized and discharged 5 days ago. States he has been having persistent soft, mushy stool since then. Today he developed chest pain. Denies associated diaphoresis, shortness of breath, vomiting, or nausea. Patient was scheduled for dialysis yesterday, but did not go due to his mushy stool. Noted missed HD, hyperkalemia, mild anemia without gross bleeding, uncontrolled DM. Initial troponin negative EK09/09/17; NSR, LVH, chronic ST changes lateral, old inferior infarct. 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 moderate pulmonary stenosis Chronic diastolic dysfunction grade 3 Chronic pain Hx of non-compliance with meds and on occasion HD Review of Systems - Review of Systems All systems: reviewed and no additional remarkable complaints except Past Patient History - Infectious Disease Hx of Infectious Diseases: None - Tetanus Immunizations Tetanus Immunization: >10 years Ago - Past Medical History & Family History Past Medical History?: Yes - Past Social History Smoking Status: Never Smoked - CARDIAC Hx Atrial Fibrillation: Yes Hx Cardia Arrhythmia: Yes Hx Congestive Heart Failure: Yes Hx Hypercholesterolemia: Yes Hx Hypertension: Yes - PULMONARY Hx Asthma: Yes Hx Bronchitis: Yes Hx Chronic Obstructive Pulmonary Disease (COPD): Yes Hx Pneumonia: Yes - NEUROLOGICAL Hx Alzheimer's Disease: Yes Hx Seizures: Yes - HEENT Hx HEENT Problems: Yes Hx Blind: Yes (legally blind) Hx Cataracts: Yes - RENAL Hx Chronic Kidney Disease: Yes - ENDOCRINE/METABOLIC Hx Hyperthyroidism: No Hx Hypothyroidism: Yes - HEMATOLOGICAL/ONCOLOGICAL Hx Anemia: Yes - INTEGUMENTARY Hx Dermatological Problems: No - MUSCULOSKELETAL/RHEUMATOLOGICAL Hx Arthritis: Yes - GASTROINTESTINAL Hx Gall Bladder Disease: Yes Hx Gastritis: Yes - GENITOURINARY/GYNECOLOGICAL Hx Sexually Transmitted Disorders: No - PSYCHIATRIC Hx Anxiety: Yes Hx Depression: Yes Hx Substance Use: No - SURGICAL HISTORY Hx Cholecystectomy: Yes (2011) 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/2009) Hx Coronary Stent: Yes - ANESTHESIA Hx Anesthesia: Yes Hx Anesthesia Reactions: No Hx Malignant Hyperthermia: No Meds Home Medications: Home Medication List Medication Instructions Recorded Confirmed Type HYDROmorphone [Dilaudid 2 mg Tab] 2 mg PO Q4 PRN #10 tab 10/14/17 Rx Allergies/Adverse Reactions: Allergies Allergy/AdvReac Type Severity Reaction Status Date / Time acetaminophen [From Percocet] Allergy RASH Verified 10/02/17 22:06 atenolol Allergy RASH Verified 10/02/17 22:06 digoxin Allergy RASH Verified 10/02/17 22:06 milk Allergy ITCHING Verified 10/02/17 22:06 morphine Allergy RASH Verified 10/02/17 22:06 oxycodone HCl [From Percocet] Allergy RASH Verified 10/02/17 22:06 - Medications Medications: Current Medications Amlodipine Besylate (Norvasc) 10 mg PO DAILY [facility] Last Admin: 10/14/17 09:27 Dose: Not Given Carvedilol (Coreg) 25 mg PO BID [facility] Last Admin: 10/14/17 09:27 Dose: Not Given Hydromorphone HCl (Dilaudid) 1 mg IVP Q6H PRN PRN Reason: Pain, severe (8-10) Last Admin: 10/14/17 08:48 Dose: 1 mg Insulin Glargine (Lantus) 10 unit SC HS [facility] Insulin Human Regular (Novolin R) 0 unit SC ACHS [facility] PRN Reason: Protocol Last Admin: 10/14/17 09:26 Dose: 2 unit Isosorbide Mononitrate (Imdur) 90 mg PO DAILY [facility] Last Admin: 10/14/17 09:27 Dose: Not Given Sertraline HCl (Zoloft) 100 mg PO DAILY [facility] Last Admin: 10/14/17 09:51 Dose: 100 mg Physical Exam - Constitutional Appears: No Acute Distress - Head Exam Head Exam: ATRAUMATIC, NORMAL INSPECTION, NORMOCEPHALIC - Eye Exam Eye Exam: absent: Normal appearance (legally blind) - Neck Exam Neck exam: Positive for: Full Rom, Normal Inspection - Cardiovascular Exam Cardiovascular Exam: REGULAR RHYTHM, +S1, +S2. absent: Systolic Murmur - GI/Abdominal Exam GI & Abdominal Exam: Normal Bowel Sounds, Soft. absent: Tenderness - Extremities Exam Extremities exam: Negative for: normal inspection (b/l BKA) Results - Vital Signs Recent Vital Signs: Last Vital Signs Temp 97.2 F L 10/14/17 10:25 Pulse 74 10/14/17 10:25 Resp 17 10/14/17 10:25 BP 105/66 10/14/17 12:25 Pulse Ox 100 10/14/17 10:25 - Labs Result Diagrams: 10/13/17 16:14 10/13/17 16:14 Labs: Laboratory Results - last 24 hr 10/13/17 10/13/17 10/14/17 16:14 16:14 08:06 WBC 10.5 RBC 2.92 L Hgb 9.1 L Hct 27.5 L MCV 94.1 H MCH 31.3 H MCHC 33.3 RDW 18.7 H Plt Count 274 MPV 9.2 Neut % (Auto) 59.7 Lymph % (Auto) 30.3 [place] % (Auto) 6.2 Eos % (Auto) 2.9 Baso % (Auto) 0.9 Neut # (Auto) 6.2 Lymph # (Auto) 3.2 [place] # (Auto) 0.6 Eos # (Auto) 0.3 Baso # (Auto) 0.1 Sodium 136 Potassium 6.2 H* Chloride 94 L Carbon Dioxide 24 Anion Gap 24 H BUN 83 H Creatinine 7.0 H Est GFR ( Amer) 11 Est GFR (Non-Af Amer) 9 POC Glucose (mg/dL) 226 H Random Glucose 337 H Calcium 9.4 Total Bilirubin 0.5 AST 29 ALT 22 Alkaline Phosphatase 295 H D Troponin I 0.0170 Total Protein 8.0 Albumin 4.1 Globulin 3.9 Albumin/Globulin Ratio 1.1 C. difficile Ag & Toxin 10/14/17 10/14/17 08:31 12:01 WBC RBC Hgb Hct MCV MCH MCHC RDW Plt Count MPV Neut % (Auto) Lymph % (Auto) [place] % (Auto) Eos % (Auto) Baso % (Auto) Neut # (Auto) Lymph # (Auto) [place] # (Auto) Eos # (Auto) Baso # (Auto) Sodium Potassium Chloride Carbon Dioxide Anion Gap BUN Creatinine Est GFR ( Amer) Est GFR (Non-Af Amer) POC Glucose (mg/dL) 104 Random Glucose Calcium Total Bilirubin AST ALT Alkaline Phosphatase Troponin I Total Protein Albumin Globulin Albumin/Globulin Ratio C. difficile Ag & Toxin Negative - EKG Data EKG Interpreted by: Myself Assessment & Plan - Assessment and Plan (Free Text) Assessment: 37 y/o with transgender phenotype > DM brittle poorly controlled and hx of non-compliance > HTN is chronic and stable; with hx of non-compliance and sporadic lability > ESRD on HD with hx of non-compliance and missed sessions > PVD s/p bilateral BKA due to recurrent infections and progressive gangrene and non-healing ulcers > Legally blind Coronary artery disease s/p CABG and subsequent PCI all grafts are closed > He remains with preserved LV function and advanced diastolic dysfunction despite diffuse small vessel CAD (too small for PCI) > Recurrent anemia and GI bleed in past and present: deemed not a good candidate for DAPT > cont ASA if tolerated > EKG: AFIB, chronic LVH with strain > BDLN troponin < 0.8 : this is c/w with chronic CHF/diastolic dysfunction and ESRD on top of deman ischemia from chronic non-revascularizable CAD. > Medical therapy remains his most important and sole treatment option at this stage of chronic CAD. > Continue ASA as tolerated, imdur, coreg, high intensity statin; ranexa and titrate these meds as tolerated to achieve optimal BP and HR control. (<120/80 and HR <65). * He unfortunately is not a candidate for any surgical or percutaneous therapy * He has had hx of atrial catheter related thrombus in past ---> he was challenged with AC on many occasions but due to GI bleed deemed unsafe * he has known documented hx of parx AFLUTTER/AFIB Continue amiodarone 200 daily Meds reviewed [id number]- Add clonidine or hydralazine for better BP control Add amiodarone: for Parox atrial flutter/fib Cont HD to maintain volume status
[2017-10-14] MEDS ORDERED: HYDROmorphone 0.5 mg/0.5 ml ISec ONE (14:28)
[2017-10-14 14:56] VITALS: RESP 18
--- NOTE | 2017-10-14 16:02 | CP.PCM.PN ---
Subjective - Date & Time of Evaluation Date of Evaluation: 10/14/17 Time of Evaluation: 15:58 - Subjective Subjective: PT SEEN IN THE ED HOLDING AREA FOR D/C HOME TODAY. OK TO D/C PT HOME TODAY PER DR. BELL. PT EVAL'D AND HE HAS NO COMPLAINTS, IN NAD. RECENTLY MEDICATED WITH PAIN MEDICINE. DR. JORDAN HERE TO SEE THE PT AND MADE AWARE OF D/C; PT TO RESUME HIS USUAL HD SCHEDULE (DUE TOMORROW). SEEN BY CARDIOLOGY EARLIER TODAY AND CLEARED FOR D/C WELL; TO CONTINUE CURRENT TREATMENT. PT INSTRUCTED TO F /U WITH DR. BELL AND DR. DONALDSON IN THE OFFICE WITHIN 5-7 DAYS. RX REFILL FOR 2.5 DAYS WORTH OF PO DILAUDID. PT STATES HE HAS ALL OTHER MEDICATIONS AT HOME. VERBALIZES UNDERSTANDING OF D/C PLAN, F/U AND MEDICATIONS. PT VERBALIZES AGREEMENT FOR D/C TODAY. WILL NEED TRANSPORTATION ARRANGED. SEE BELOW FOR FURTHER D/C INFORMATION. NO FURTHER ORDERS. -FOLLOW UP WITH DR. BELL IN HER OFFICE WITHIN 5-7 DAYS OF DISCHARGE---CALL THE OFFICE TOMORROW AND MAKE YOUR APPT. -FOLLOW UP WITH DR. DONALDSON (CARDIOLOGY) IN THE OFFICE WITHIN 5-7 DAYS OF DISCHARGE---CALL THE OFFICE TOMORROW AND MAKE YOUR APPT. -CONTINUE YOU DIALYSIS SCHEDULE USUAL. MAKE SURE YOU GO TOMORROW TO YOUR DIALYSIS. DO NOT SKIP ANY SESSIONS. -CONTINUE YOUR USUAL HOME MEDICATIONS. -YOU HAVE BEEN REFILLED DILAUDID TABLETS---ONLY 2.5 DAYS WORTH---WHEN YOU SEE DR. BELL IN THE OFFICE THIS WEEK YOU MAY REQUEST A REFILL. -IF YOU HAVE ANY FURTHER QUESTIONS OR CONCERNS, CONTACT DR. BELL'S OFFICE. Objective - Vital Signs/Intake and Output Vital Signs (last 24 hours): Temp Pulse Resp BP Pulse Ox 97.6 F 72 18 185/98 H 100 10/14/17 14:20 10/14/17 14:20 10/14/17 14:20 10/14/17 14:20 10/14/17 14:20 - Medications Medications: Current Medications Amlodipine Besylate (Norvasc) 10 mg PO DAILY [facility] Last Admin: 10/14/17 09:27 Dose: Not Given Carvedilol (Coreg) 25 mg PO BID [facility] Last Admin: 10/14/17 09:27 Dose: Not Given Epoetin Tom (Procrit) 4,000 unit IV TTS [facility] Hydromorphone HCl (Dilaudid) 1 mg IVP Q6H PRN PRN Reason: Pain, severe (8-10) Last Admin: 10/14/17 15:05 Dose: 1 mg Insulin Glargine (Lantus) 10 unit SC HS [facility] Insulin Human Regular (Novolin R) 0 unit SC ACHS [facility] PRN Reason: Protocol Last Admin: 10/14/17 15:06 Dose: Not Given Isosorbide Mononitrate (Imdur Er) 90 mg PO DAILY [facility] Sertraline HCl (Zoloft) 100 mg PO DAILY [facility] Last Admin: 10/14/17 09:51 Dose: 100 mg - Labs Labs: 10/13/17 16:14 10/13/17 16:14
--- NOTE | 2017-10-14 17:07 | CP.PCM.HP ---
History of Present Illness - History of Present Illness History of Present Illness: pt came to ed for chest pain mised his dialysis have diarhea Present on Admission - Present on Admission Any Indicators Present on Admission: Yes Review of Systems - Review of Systems Systems not reviewed;Unavailable: Acuity of Condition - Constitutional Constitutional: As Per HPI - EENT Eyes: As Per HPI Ears: As Per HPI Nose/Mouth/Throat: As Per HPI - Cardiovascular Cardiovascular: Chest Pain at Rest - Respiratory Respiratory: Dyspnea on Exertion - Gastrointestinal Additional comments: diarehea - Reproductive: 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 - Musculoskeletal Additional comments: bilat amputation - Neurological Neurological: Loss of Vision - Psychiatric Psychiatric: Depression - Endocrine Endocrine: As Per HPI Past Patient History - Infectious Disease Hx of Infectious Diseases: None - Tetanus Immunizations Tetanus Immunization: >10 years Ago - Past Medical History & Family History Past Medical History?: Yes - Past Social History Smoking Status: Never Smoked - CARDIAC Hx Atrial Fibrillation: Yes Hx Cardia Arrhythmia: Yes Hx Congestive Heart Failure: Yes Hx Hypercholesterolemia: Yes Hx Hypertension: Yes - PULMONARY Hx Asthma: Yes Hx Bronchitis: Yes Hx Chronic Obstructive Pulmonary Disease (COPD): Yes Hx Pneumonia: Yes - NEUROLOGICAL Hx Alzheimer's Disease: Yes Hx Seizures: Yes - HEENT Hx HEENT Problems: Yes Hx Blind: Yes (legally blind) Hx Cataracts: Yes - RENAL Hx Chronic Kidney Disease: Yes - ENDOCRINE/METABOLIC Hx Hyperthyroidism: No Hx Hypothyroidism: Yes - HEMATOLOGICAL/ONCOLOGICAL Hx Anemia: Yes - INTEGUMENTARY Hx Dermatological Problems: No - MUSCULOSKELETAL/RHEUMATOLOGICAL Hx Arthritis: Yes Hx Falls: No - GASTROINTESTINAL Hx Gall Bladder Disease: Yes Hx Gastritis: Yes - GENITOURINARY/GYNECOLOGICAL Hx Sexually Transmitted Disorders: No - PSYCHIATRIC Hx Anxiety: Yes Hx Depression: Yes Hx Substance Use: No - SURGICAL HISTORY Hx Cholecystectomy: Yes (2011) 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/2009) Hx Coronary Stent: Yes - ANESTHESIA Hx Anesthesia: Yes Hx Anesthesia Reactions: No Hx Malignant Hyperthermia: No Meds Home Medications: Home Medication List Medication Instructions Recorded Confirmed Type HYDROmorphone [Dilaudid 2 mg Tab] 2 mg PO Q4 PRN #10 tab 10/14/17 Rx Allergies/Adverse Reactions: Allergies Allergy/AdvReac Type Severity Reaction Status Date / Time acetaminophen [From Percocet] Allergy RASH Verified 10/02/17 22:06 atenolol Allergy RASH Verified 10/02/17 22:06 digoxin Allergy RASH Verified 10/02/17 22:06 milk Allergy ITCHING Verified 10/02/17 22:06 morphine Allergy RASH Verified 10/02/17 22:06 oxycodone HCl [From Percocet] Allergy RASH Verified 10/02/17 22:06 Physical Exam - Constitutional Appears: Non-toxic - Head Exam Head Exam: ATRAUMATIC - Eye Exam Eye Exam: Conjunctival injection Additional comments: legaly blind - ENT Exam ENT Exam: Mucous Membranes Dry, Mucous Membranes Moist - Neck Exam Neck exam: Positive for: Full Rom - Respiratory Exam Respiratory Exam: Clear to Auscultation Bilateral - Cardiovascular Exam Cardiovascular Exam: REGULAR RHYTHM - GI/Abdominal Exam GI & Abdominal Exam: Normal Bowel Sounds - Neurological Exam Additional comments: canot walk - Psychiatric Exam Psychiatric exam: Normal Affect - Skin Skin Exam: Pallor Results - Vital Signs Recent Vital Signs: Last Vital Signs Temp 97.6 F 10/14/17 14:20 Pulse 72 10/14/17 14:20 Resp 18 10/14/17 14:20 BP 185/98 H 10/14/17 14:20 Pulse Ox 100 10/14/17 14:20 - Labs Result Diagrams: 10/13/17 16:14 10/13/17 16:14 Labs: Laboratory Results - last 24 hr 10/14/17 10/14/17 10/14/17 08:06 08:31 12:01 POC Glucose (mg/dL) 226 H 104 C. difficile Ag & Toxin Negative Assessment & Plan - Assessment and Plan (Free Text) Assessment: chest pain non sp [place] renal failiur did not had his dialysis dmid copd Plan: will get dialysis then dischargge to cont all med same - Date & Time Date: 10/14/17 Time: 17:12
[2017-10-14 19:15] VITALS: BP 178/84; PULSE 84; TEMP 98.4; O2SAT 99
--- NOTE | 2017-10-14 21:09 | CARD ---
APPROVED REPORT EKG Measurement Heart [id number] [place] [id number] <Conclusion> Normal sinus rhythm Left ventricular hypertrophy with QRS widening and repolarization abnormality Abnormal ECG
[2017-10-14] MEDS ORDERED: (Lantus) Insulin Glargine, Recombinant SC SCH (22:00)
[2017-10-15] MEDS ORDERED: EPOETIN ALFA 4,000 UNIT/ML ML Dialysis IV SCH (10:00)
--- NOTE | 2017-10-16 12:36 | CARD ---
APPROVED REPORT EKG Measurement Heart [id number] [place] 158P36 [id number] <Conclusion> Normal sinus rhythm Left ventricular hypertrophy with QRS widening and repolarization abnormality Possible Inferior infarct, age undetermined Abnormal ECG
--- NOTE | 2017-10-16 16:58 | CARD ---
APPROVED REPORT EKG Measurement Heart [id number] [place] 190P42 [id number] <Conclusion> Sinus rhythm with occasional premature ventricular complexes Possible Left atrial enlargement ST & T wave abnormality, consider lateral ischemia Abnormal ECG
== END 2017-10-14 19:40 | disposition home or self-care (01) ==
LOC: C.ER 14:48 → C.9E 16:53 → INTOOBSV 23:48 → OBSVTOIN 23:48
PROVIDERS: ADMIT Internal Medicine; ATTEND Internal Medicine
DX: R07.9 Chest pain, unspecified (principal); G30.9 Alzheimer's disease, unspecified; F02.80 Dementia in other diseases classified elsewhere, unspecified severity, without behavioral disturbance, psychotic disturbance, mood disturbance, and anxiety; E11.22 Type 2 diabetes mellitus with diabetic chronic kidney disease; I13.2 Hypertensive heart and chronic kidney disease with heart failure and with stage 5 chronic kidney disease, or end stage renal disease; I50.9 Heart failure, unspecified; N18.6 End stage renal disease; Z99.2 Dependence on renal dialysis; Z79.4 Long term (current) use of insulin; E03.9 Hypothyroidism, unspecified; E78.00 Pure hypercholesterolemia, unspecified; I48.2 Chronic atrial fibrillation; J44.9 Chronic obstructive pulmonary disease, unspecified; I25.10 Atherosclerotic heart disease of native coronary artery without angina pectoris; Z95.1 Presence of aortocoronary bypass graft; H54.8 Legal blindness, as defined in USA; E87.5 Hyperkalemia
CPT/HCPCS: 80053; 82948; 84484; 85025; 87045; 87230; 93005; 96374; 96376; 99285; G0378; J1170

== ENCOUNTER 2017-10-17 16:06 | Observation (INO) | payer OTHER ==
[2017-10-17 16:07] VITALS: PULSE 66; BMI 18.8
--- NOTE | 2017-10-17 17:36 | RAD ---
PROCEDURE: CHEST RADIOGRAPH, 1 VIEW HISTORY: chest pain COMPARISON: 10/02/2017. FINDINGS: LUNGS: Clear. PLEURA: No pneumothorax or pleural fluid seen. CARDIOVASCULAR: Cardiomegaly. Incidental Finding(s): Postoperative changes related to sternotomy. Venous access catheter in stable, satisfactory position. OSSEOUS STRUCTURES: No significant abnormalities. VISUALIZED UPPER ABDOMEN: Normal. OTHER FINDINGS: None. IMPRESSION: No active disease. No acute/significant interval changes.
[2017-10-17 18:05] LABS: BASO # 0.1 K/uL (0.0-0.2); BASO % 0.6 % (0.0-2.0); EOS # 0.5 K/uL (0.0-0.7); EOS % 4.6 % (0.0-4.0); HEMOGLOBIN 9.1 g/dL (12.0-18.0); LYMPH # 3.3 K/uL (1.0-4.3); LYMPH % 29.3 % (20.0-40.0); MEAN CELL VOLUME 94.1 fL (80.0-94.0); MEAN CORPUSCULAR HEMOGLOBIN 31.1 pg (27.0-31.0); MONO # 0.6 K/uL (0.0-0.8); MONO % 5.1 % (0.0-10.0); NEUT # 6.8 K/uL (1.8-7.0); NEUT % 60.4 % (50.0-75.0); RBC 2.92 Mil/uL (4.40-5.90); RED CELL DISTRIBUTION WIDTH 18.3 % (11.5-14.5); WHITE BLOOD COUNT 11.3 K/uL (4.8-10.8)
[2017-10-17 18:28] LABS: TROPONIN I 0.022 ng/mL (0.00-0.120)
[2017-10-17 18:31] LABS: ALB/GLOB RATIO 1.1 (1.0-2.1); ALBUMIN 4.1 g/dL (3.5-5.0)
[2017-10-17] MEDS ORDERED: Calcium Gluconate 4.65 mEq/10 ml Inj IVP STA (18:33)
[2017-10-17] MEDS ORDERED: Sod Polystyrene Sulf 15 gm/60 ml Susp PO STA (18:33)
[2017-10-17] MEDS ORDERED: Sodium Bicarbonate (8.4%) 50 Meq Syringe IVP ONE (18:34)
[2017-10-17] MEDS ORDERED: Calcium Gluconate 4.65 mEq/10 ml Inj ONE (18:46)
[2017-10-17] MEDS ORDERED: Sod Polystyrene Sulf 15 gm/60 ml Susp ONE (18:46)
[2017-10-17] MEDS ORDERED: Sodium Bicarbonate (8.4%) 50 Meq Syringe ONE (18:47)
[2017-10-17] MEDS ORDERED: Ergocalciferol 50,000 Intl Units Cap PO SCH (20:00)
--- NOTE | 2017-10-17 20:02 | CP.PCM.HP ---
History of Present Illness - History of Present Illness History of Present Illness: oame in c/o sob chest pain did miss his dialysis k hi Present on Admission - Present on Admission Any Indicators Present on Admission: Yes Review of Systems - Constitutional Constitutional: Fatigue, Headache, Weakness - EENT Eyes: Blind Spots Ears: As Per HPI Nose/Mouth/Throat: As Per HPI - Cardiovascular Cardiovascular: Chest Pain at Rest, Dyspnea - Respiratory Respiratory: Dyspnea, Dyspnea on Exertion, Wheezing - Gastrointestinal Gastrointestinal: As Per HPI - Genitourinary Genitourinary: As Per HPI - Reproductive: Male Additional comments: klinfilter - Musculoskeletal Musculoskeletal: Back Pain Additional comments: bilateral amputation - Integumentary Integumentary: As Per HPI - Neurological Neurological: As Per HPI, Paresthesias - Psychiatric Psychiatric: As Per HPI, Depression - Endocrine Endocrine: As Per HPI - Hematologic/Lymphatic Hematologic: As Per HPI Past Patient History - Infectious Disease Hx of Infectious Diseases: None - Tetanus Immunizations Tetanus Immunization: >10 years Ago - Past Medical History & Family History Past Medical History?: Yes - Past Social History Smoking Status: Never Smoked - CARDIAC Hx Atrial Fibrillation: Yes Hx Cardia Arrhythmia: Yes Hx Congestive Heart Failure: Yes Hx Hypercholesterolemia: Yes Hx Hypertension: Yes - PULMONARY Hx Asthma: Yes Hx Bronchitis: Yes Hx Chronic Obstructive Pulmonary Disease (COPD): Yes Hx Pneumonia: Yes - NEUROLOGICAL Hx Alzheimer's Disease: Yes Hx Seizures: Yes - HEENT Hx HEENT Problems: Yes Hx Blind: Yes (legally blind) Hx Cataracts: Yes - RENAL Hx Chronic Kidney Disease: Yes - ENDOCRINE/METABOLIC Hx Hyperthyroidism: No Hx Hypothyroidism: Yes - HEMATOLOGICAL/ONCOLOGICAL Hx Anemia: Yes - INTEGUMENTARY Hx Dermatological Problems: No - MUSCULOSKELETAL/RHEUMATOLOGICAL Other/Comment: bKA bilateral - GASTROINTESTINAL Hx Gall Bladder Disease: Yes Hx Gastritis: Yes - GENITOURINARY/GYNECOLOGICAL Hx Sexually Transmitted Disorders: No - PSYCHIATRIC Hx Anxiety: Yes Hx Depression: Yes Hx Substance Use: No - SURGICAL HISTORY Hx Cholecystectomy: Yes (2011) 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/2009) Hx Coronary Stent: Yes - ANESTHESIA Hx Anesthesia: Yes Hx Anesthesia Reactions: No Hx Malignant Hyperthermia: No Meds Allergies/Adverse Reactions: Allergies Allergy/AdvReac Type Severity Reaction Status Date / Time acetaminophen [From Percocet] Allergy RASH Verified 10/17/17 16:32 atenolol Allergy RASH Verified 10/17/17 16:32 digoxin Allergy RASH Verified 10/17/17 16:32 milk Allergy ITCHING Verified 10/17/17 16:32 morphine Allergy RASH Verified 10/17/17 16:32 oxycodone HCl [From Percocet] Allergy RASH Verified 10/17/17 16:32 Physical Exam - Constitutional Appears: Non-toxic - Head Exam Head Exam: ATRAUMATIC - Eye Exam Eye Exam: Conjunctival injection - ENT Exam ENT Exam: Mucous Membranes Moist - Neck Exam Neck exam: Positive for: Tenderness - Respiratory Exam Respiratory Exam: Decreased Breath Sounds - Cardiovascular Exam Cardiovascular Exam: Tachycardia - GI/Abdominal Exam GI & Abdominal Exam: Normal Bowel Sounds - Rectal Exam Rectal Exam: NORMAL INSPECTION - Extremities Exam Additional comments: bilateral amputation - Back Exam Back exam: CVA tenderness (L) - Neurological Exam Neurological exam: Oriented x3 - Psychiatric Exam Psychiatric exam: Normal Mood - Skin Skin Exam: Pallor Results - Vital Signs Recent Vital Signs: Last Vital Signs Temp 98.4 F 10/17/17 16:28 Pulse 84 10/17/17 16:28 Resp 20 10/17/17 16:28 BP 199/79 H 10/17/17 16:28 Pulse Ox 99 10/17/17 16:28 - Labs Result Diagrams: 10/17/17 17:55 10/17/17 17:55 Labs: Laboratory Results - last 24 hr 10/17/17 10/17/17 17:55 17:55 WBC 11.3 H RBC 2.92 L Hgb 9.1 L Hct 27.5 L MCV 94.1 H MCH 31.1 H MCHC 33.0 RDW 18.3 H Plt Count 244 MPV 8.0 Neut % (Auto) 60.4 Lymph % (Auto) 29.3 [place] % (Auto) 5.1 Eos % (Auto) 4.6 H Baso % (Auto) 0.6 Neut # (Auto) 6.8 Lymph # (Auto) 3.3 [place] # (Auto) 0.6 Eos # (Auto) 0.5 Baso # (Auto) 0.1 Sodium 137 Potassium 6.6 H* Chloride 95 L Carbon Dioxide 23 Anion Gap 26 H BUN 96 H Creatinine 8.3 H* Est GFR ( Amer) 9 Est GFR (Non-Af Amer) 7 Random Glucose 139 H Calcium 7.0 L Total Bilirubin 0.4 AST 22 ALT 15 L D Alkaline Phosphatase 250 H Troponin I 0.0220 Total Protein 7.8 Albumin 4.1 Globulin 3.7 Albumin/Globulin Ratio 1.1 Assessment & Plan - Assessment and Plan (Free Text) Assessment: as chest pain cad chf ESRF [facility] MISED DIALYSIS HTN DM COPD Plan: PER ORDERS - Date & Time Date: 10/17/17 Time: 20:06
[2017-10-17] MEDS ORDERED: HYDROmorphone 1 mg/ml ISec IVP PRN (20:12)
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
[2017-10-17] MEDS: Morphine 4 MG/ML VIAL IVP PRN (22:56)
[2017-10-18] MEDS: Morphine 4 MG/ML VIAL IVP PRN ×3 (04:22→20:38)
--- NOTE | 2017-10-18 12:24 | CP.PCM.PN ---
Subjective - Date & Time of Evaluation Date of Evaluation: 10/18/17 Time of Evaluation: 12:21 - Subjective Subjective: pt was tremulous didnot get diluadid and itchy with morphin now geting dialysis confortable no distress Objective - Vital Signs/Intake and Output Vital Signs (last 24 hours): Temp Pulse Resp BP Pulse Ox 98 F 71 16 207/88 H 98 10/18/17 11:20 10/18/17 12:00 10/18/17 11:20 10/18/17 11:20 10/18/17 11:20 - Medications Medications: Current Medications Amiodarone HCl (Cordarone) 200 mg PO DAILY [facility] Last Admin: 10/18/17 09:24 Dose: 200 mg Aspirin (Aspirin Chewable) 81 mg PO DAILY [facility] Last Admin: 10/18/17 09:21 Dose: 81 mg Carvedilol (Coreg) 25 mg PO BID [facility] Last Admin: 10/18/17 09:25 Dose: Not Given Clonidine HCl (Catapres-Tts3 0.3 Mg/24 Hr) 1 patch TD Q7D@1000 [facility] Ergocalciferol (Drisdol 50,000 Intl Units Cap) 1 cap PO Q7D [facility] Last Admin: 10/17/17 22:02 Dose: 1 cap Heparin Sodium (Porcine) (Heparin) 5,000 units SC Q12 [facility] Morphine Sulfate (Morphine) 1 mg IVP Q6H PRN PRN Reason: Pain, severe (8-10) Last Admin: 10/18/17 04:22 Dose: 1 mg Rosuvastatin Calcium (Crestor) 10 mg PO HS [facility] Last Admin: 10/17/17 22:00 Dose: 10 mg - Labs Labs: 10/17/17 17:55 10/17/17 17:55 - Constitutional Appears: Non-toxic - Head Exam Head Exam: ATRAUMATIC - Eye Exam Eye Exam: Conjunctival injection - ENT Exam ENT Exam: Mucous Membranes Moist - Neck Exam Neck Exam: Full ROM - Respiratory Exam Respiratory Exam: Clear to Ausculation Bilateral - Cardiovascular Exam Cardiovascular Exam: REGULAR RHYTHM - GI/Abdominal Exam GI & Abdominal Exam: Normal Bowel Sounds - Rectal Exam Rectal Exam: NORMAL INSPECTION - Extremities Exam Additional comments: bilateral amputation - Back Exam Back Exam: NORMAL INSPECTION - Neurological Exam Neurological Exam: Alert, Oriented x3 - Psychiatric Exam Psychiatric exam: Normal Affect - Skin Skin Exam: Pallor Assessment and Plan - Assessment and Plan (Free Text) Assessment: hypercaleamiaback pain on diludid not avalable got tremors possibly withdrwal dm htn Plan: d/c home after dialysis to cont [facility] at home and home care
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
[2017-10-18 13:54] LABS: HEMOGLOBIN 9.2 g/dL (12.0-18.0); MEAN CELL VOLUME 93.7 fL (80.0-94.0); MEAN CORPUSCULAR HEMOGLOBIN 32.3 pg (27.0-31.0); MEAN CORPUSCULAR HGB CONC 34.4 g/dL (33.0-37.0); MEAN PLATELET VOLUME 8.4 fL (7.2-11.7); RBC 2.87 Mil/uL (4.40-5.90); RED CELL DISTRIBUTION WIDTH 18.7 % (11.5-14.5); WHITE BLOOD COUNT 8.9 K/uL (4.8-10.8)
[2017-10-18] MEDS ORDERED: Valproic Acid 250 mg/5 ml UD Cup PO SCH (14:00)
[2017-10-18 14:08] LABS: INR 1.1; PROTHROMBIN TIME 11.9 SECONDS (9.7-12.2)
--- NOTE | 2017-10-18 15:05 | CP.PCM.CON ---
History of Present Illness - History of Present Illness History of Present Illness: renal note pt seen on HD tolerating well plan:continue with HD as ordered4 d/c plan as per primary team stable for d/c from renal perspective, after HD today Past Patient History - Infectious Disease Hx of Infectious Diseases: None - Tetanus Immunizations Tetanus Immunization: >10 years Ago - Past Medical History & Family History Past Medical History?: Yes - Past Social History Smoking Status: Never Smoked Chewing Tobacco Use: No Cigar Use: No Alcohol: None Drugs: Denies Home Situation {Lives}: With Family - CARDIAC Hx Atrial Fibrillation: Yes Hx Cardia Arrhythmia: Yes Hx Congestive Heart Failure: Yes Hx Hypercholesterolemia: Yes Hx Hypertension: Yes - PULMONARY Hx Asthma: Yes Hx Bronchitis: Yes Hx Chronic Obstructive Pulmonary Disease (COPD): Yes Hx Pneumonia: Yes - NEUROLOGICAL Hx Alzheimer's Disease: Yes Hx Seizures: Yes - HEENT Hx HEENT Problems: Yes Hx Blind: Yes (legally blind) Hx Cataracts: Yes - RENAL Hx Chronic Kidney Disease: Yes - ENDOCRINE/METABOLIC Hx Hyperthyroidism: No Hx Hypothyroidism: Yes - HEMATOLOGICAL/ONCOLOGICAL Hx Anemia: Yes - INTEGUMENTARY Hx Dermatological Problems: No - MUSCULOSKELETAL/RHEUMATOLOGICAL Hx Arthritis: Yes - GASTROINTESTINAL Hx Gall Bladder Disease: Yes Hx Gastritis: Yes - GENITOURINARY/GYNECOLOGICAL Hx Sexually Transmitted Disorders: No - PSYCHIATRIC Hx Anxiety: Yes Hx Depression: Yes Hx Substance Use: No - SURGICAL HISTORY Hx Cholecystectomy: Yes (2011) 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/2009) Hx Coronary Stent: Yes - ANESTHESIA Hx Anesthesia: Yes Hx Anesthesia Reactions: No Hx Malignant Hyperthermia: No Meds Allergies/Adverse Reactions: Allergies Allergy/AdvReac Type Severity Reaction Status Date / Time acetaminophen [From Percocet] Allergy RASH Verified 10/17/17 16:32 atenolol Allergy RASH Verified 10/17/17 16:32 digoxin Allergy RASH Verified 10/17/17 16:32 milk Allergy ITCHING Verified 10/17/17 16:32 morphine Allergy RASH Verified 10/17/17 16:32 oxycodone HCl [From Percocet] Allergy RASH Verified 10/17/17 16:32 - Medications Medications: Current Medications Amiodarone HCl (Cordarone) 200 mg PO DAILY [facility] Last Admin: 10/18/17 09:24 Dose: 200 mg Aspirin (Aspirin Chewable) 81 mg PO DAILY [facility] Last Admin: 10/18/17 09:21 Dose: 81 mg Carvedilol (Coreg) 25 mg PO BID [facility] Last Admin: 10/18/17 13:35 Dose: 25 mg Clonidine HCl (Catapres-Tts3 0.3 Mg/24 Hr) 1 patch TD Q7D@1000 [facility] Ergocalciferol (Drisdol 50,000 Intl Units Cap) 1 cap PO Q7D [facility] Last Admin: 10/17/17 22:02 Dose: 1 cap Heparin Sodium (Porcine) (Heparin) 5,000 units SC Q12 [facility] Last Admin: 10/18/17 14:18 Dose: Not Given Levetiracetam (Keppra) 500 mg PO BID [facility] Morphine Sulfate (Morphine) 1 mg IVP Q6H PRN PRN Reason: Pain, severe (8-10) Last Admin: 10/18/17 04:22 Dose: 1 mg Rosuvastatin Calcium (Crestor) 10 mg PO HS [facility] Last Admin: 10/17/17 22:00 Dose: 10 mg Valproate Sodium (Depakene Oral Soln) 250 mg PO QID [facility] Last Admin: 10/18/17 14:18 Dose: Not Given Results - Vital Signs Recent Vital Signs: Last Vital Signs Temp 98 F 10/18/17 11:20 Pulse 71 10/18/17 12:00 Resp 16 10/18/17 11:20 BP 164/95 H 10/18/17 13:55 Pulse Ox 98 10/18/17 11:20 - Labs Result Diagrams: 10/18/17 13:47 10/17/17 17:55 Labs: Laboratory Results - last 24 hr 10/17/17 10/17/17 10/18/17 17:55 17:55 07:35 WBC 11.3 H RBC 2.92 L Hgb 9.1 L Hct 27.5 L MCV 94.1 H MCH 31.1 H MCHC 33.0 RDW 18.3 H Plt Count 244 MPV 8.0 Neut % (Auto) 60.4 Lymph % (Auto) 29.3 [place] % (Auto) 5.1 Eos % (Auto) 4.6 H Baso % (Auto) 0.6 Neut # (Auto) 6.8 Lymph # (Auto) 3.3 [place] # (Auto) 0.6 Eos # (Auto) 0.5 Baso # (Auto) 0.1 PT INR APTT Sodium 137 Potassium 6.6 H* Chloride 95 L Carbon Dioxide 23 Anion Gap 26 H BUN 96 H Creatinine 8.3 H* Est GFR ( Amer) 9 Est GFR (Non-Af Amer) 7 POC Glucose (mg/dL) 146 H Random Glucose 139 H Calcium 7.0 L Total Bilirubin 0.4 AST 22 ALT 15 L D Alkaline Phosphatase 250 H Troponin I 0.0220 Total Protein 7.8 Albumin 4.1 Globulin 3.7 Albumin/Globulin Ratio 1.1 Prolactin Valproic Acid 10/18/17 10/18/17 10/18/17 11:22 11:48 13:47 WBC RBC Hgb Hct MCV MCH MCHC RDW Plt Count MPV Neut % (Auto) Lymph % (Auto) [place] % (Auto) Eos % (Auto) Baso % (Auto) Neut # (Auto) Lymph # (Auto) [place] # (Auto) Eos # (Auto) Baso # (Auto) PT INR APTT Sodium Potassium Chloride Carbon Dioxide Anion Gap BUN Creatinine Est GFR ( Amer) Est GFR (Non-Af Amer) POC Glucose (mg/dL) 240 H Random Glucose Calcium Total Bilirubin AST ALT Alkaline Phosphatase Troponin I Total Protein Albumin Globulin Albumin/Globulin Ratio Prolactin 36.4 H Valproic Acid < 10.0 L 10/18/17 10/18/17 13:47 13:53 WBC 8.9 RBC 2.87 L Hgb 9.2 L Hct 26.9 L MCV 93.7 MCH 32.3 H MCHC 34.4 RDW 18.7 H Plt Count 211 MPV 8.4 Neut % (Auto) Lymph % (Auto) [place] % (Auto) Eos % (Auto) Baso % (Auto) Neut # (Auto) Lymph # (Auto) [place] # (Auto) Eos # (Auto) Baso # (Auto) PT 11.9 INR 1.1 APTT 37 H Sodium Potassium Chloride Carbon Dioxide Anion Gap BUN Creatinine Est GFR ( Amer) Est GFR (Non-Af Amer) POC Glucose (mg/dL) Random Glucose Calcium Total Bilirubin AST ALT Alkaline Phosphatase Troponin I Total Protein Albumin Globulin Albumin/Globulin Ratio Prolactin Valproic Acid
[2017-10-18] MEDS ORDERED: Divalproex 500 mg DR Tab PO STA (16:37)
--- NOTE | 2017-10-18 17:02 | CP.PCM.PN ---
Subjective - Date & Time of Evaluation Date of Evaluation: 10/18/17 Time of Evaluation: 17:01 - Subjective Subjective: PATIENT WAS ADMITTING FOR CHEST PAIN AND HYPERKALEMIA DENIES CHEST PAIN AND SOB NO SIGN OF DISTRESS NOTED Objective - Vital Signs/Intake and Output Vital Signs (last 24 hours): Temp Pulse Resp BP Pulse Ox 97.9 F 70 20 131/56 L 96 10/18/17 16:31 10/18/17 16:31 10/18/17 16:31 10/18/17 16:31 10/18/17 16:31 Intake and Output: 10/18/17 10/18/17 06:59 18:59 Intake Total 150 Balance 150 - Medications Medications: Current Medications Amiodarone HCl (Cordarone) 200 mg PO DAILY [facility] Last Admin: 10/18/17 09:24 Dose: 200 mg Aspirin (Aspirin Chewable) 81 mg PO DAILY [facility] Last Admin: 10/18/17 09:21 Dose: 81 mg Carvedilol (Coreg) 25 mg PO BID [facility] Last Admin: 10/18/17 13:35 Dose: 25 mg Clonidine HCl (Catapres-Tts3 0.3 Mg/24 Hr) 1 patch TD Q7D@1000 [facility] Divalproex Sodium (Depakote Dr) 500 mg PO BID [facility] Ergocalciferol (Drisdol 50,000 Intl Units Cap) 1 cap PO Q7D [facility] Last Admin: 10/17/17 22:02 Dose: 1 cap Heparin Sodium (Porcine) (Heparin) 5,000 units SC Q12 [facility] Last Admin: 10/18/17 14:18 Dose: Not Given Levetiracetam (Keppra) 250 mg PO DIAL [facility] Morphine Sulfate (Morphine) 1 mg IVP Q6H PRN PRN Reason: Pain, severe (8-10) Last Admin: 10/18/17 15:49 Dose: 1 mg Rosuvastatin Calcium (Crestor) 10 mg PO HS [facility] Last Admin: 10/17/17 22:00 Dose: 10 mg - Labs Labs: 10/18/17 13:47 10/17/17 17:55 PT 11.9 SECONDS (9.7-12.2) 10/18/17 13:53 INR 1.1 10/18/17 13:53 APTT 37 SECONDS (21-34) H 10/18/17 13:53 Assessment and Plan - Assessment and Plan (Free Text) Assessment: PATIENT IS SEEN AND EXAMINED AT THE BEDSIDE NEURO CLEAR PATIENT AND RESUME HER ANTI SEIZURE MEDS LUNG SOUND CLEAR; ELECTROLYTES WNL POST HD TNI SLIGHT ELEVATED PER MACHINE FANCY STITCHER DUE TO HX OF DIALYSIS AND STENT PER MULTI PREVIOUS ADMISSION DISCUSS WITH DR ARABELLA DUNCAN CLEAR FOR DC FOLLOW UP WITH DR BELL IN 1-2 WEEK AT HIS OFFICE --CALL FOR YOUR APPOINTMENT CONTINUE ALL YOUR HOME MEDICATION RESUME NEW PRESCRIPTION KEPPRA 500MG BY MOUTH TWICE A DAY VALPORIC ACID BY MOUTH 4 TIMES A DAY DIALYSIS PER YOUR REGULAR SCHEDULE ACTIVITY TOLERATED CALL DR BELL OR GO TO THE EMERGENCY ROOM IF SYMPTOMS RETURN OR WORSENING DISCUSS WITH PATIENT WHO AGREE WITH THE DC
[2017-10-18] MEDS: Divalproex 500 mg DR Tab PO SCH (17:18)
[2017-10-18 17:27] LABS: ALB/GLOB RATIO 1.1 (1.0-2.1); ALBUMIN 3.8 g/dL (3.5-5.0); CALCIUM 7.7 mg/dl (8.6-10.4)
[2017-10-18] MEDS: (Novolin R) Insulin Human Regular 100 units/ml vial SC SCH (22:15)
--- NOTE | 2017-10-18 23:16 | CARD ---
APPROVED REPORT EKG Measurement Heart [id number] <Conclusion> Normal sinus rhythm Left ventricular hypertrophy with QRS widening and repolarization abnormality Prolonged QT Abnormal ECG
[2017-10-19] MEDS: Morphine 4 MG/ML VIAL IVP PRN ×3 (02:26→17:13)
[2017-10-19] MEDS: (Novolin R) Insulin Human Regular 100 units/ml vial SC SCH ×3 (08:25→16:55)
--- NOTE | 2017-10-19 09:23 | CP.PCM.PN ---
Subjective - Date & Time of Evaluation Date of Evaluation: 10/19/17 Time of Evaluation: 09:19 - Subjective Subjective: pt feels castro bs was 300 now 190 no chest pain Objective - Vital Signs/Intake and Output Vital Signs (last 24 hours): Temp Pulse Resp BP Pulse Ox 98.0 F 62 20 147/71 98 10/19/17 07:45 10/19/17 07:45 10/19/17 07:45 10/19/17 07:45 10/19/17 07:45 Intake and Output: 10/19/17 10/19/17 06:59 18:59 Intake Total 400 Output Total 0 Balance 400 - Medications Medications: Current Medications Amiodarone HCl (Cordarone) 200 mg PO DAILY [facility] Last Admin: 10/18/17 09:24 Dose: 200 mg Aspirin (Aspirin Chewable) 81 mg PO DAILY [facility] Last Admin: 10/18/17 09:21 Dose: 81 mg Carvedilol (Coreg) 25 mg PO BID [facility] Last Admin: 10/18/17 17:14 Dose: 25 mg Clonidine HCl (Catapres-Tts3 0.3 Mg/24 Hr) 1 patch TD Q7D@1000 [facility] Divalproex Sodium (Depakote Dr) 500 mg PO BID [facility] Last Admin: 10/18/17 17:18 Dose: Not Given Ergocalciferol (Drisdol 50,000 Intl Units Cap) 1 cap PO Q7D [facility] Last Admin: 10/17/17 22:02 Dose: 1 cap Heparin Sodium (Porcine) (Heparin) 5,000 units SC Q12 [facility] Last Admin: 10/18/17 22:15 Dose: 5,000 units Insulin Human Regular (Novolin R) 0 unit SC ACHS [facility] PRN Reason: Protocol Last Admin: 10/18/17 22:15 Dose: 2 unit Levetiracetam (Keppra) 250 mg PO DIAL [facility] Morphine Sulfate (Morphine) 1 mg IVP Q6H PRN PRN Reason: Pain, severe (8-10) Last Admin: 10/19/17 02:26 Dose: 1 mg Rosuvastatin Calcium (Crestor) 10 mg PO HS [facility] Last Admin: 10/18/17 22:15 Dose: 10 mg - Labs Labs: 10/18/17 13:47 10/18/17 16:53 PT 11.9 SECONDS (9.7-12.2) 10/18/17 13:53 INR 1.1 10/18/17 13:53 APTT 37 SECONDS (21-34) H 10/18/17 13:53 - Constitutional Appears: Non-toxic - Head Exam Head Exam: NORMAL INSPECTION - Eye Exam Eye Exam: Conjunctival injection, Normal appearance - ENT Exam ENT Exam: Mucous Membranes Dry - Neck Exam Neck Exam: Full ROM - Respiratory Exam Respiratory Exam: Clear to Ausculation Bilateral - Cardiovascular Exam Cardiovascular Exam: REGULAR RHYTHM - GI/Abdominal Exam GI & Abdominal Exam: Soft - Rectal Exam Rectal Exam: NORMAL INSPECTION - Extremities Exam Additional comments: javier amput - Back Exam Back Exam: NORMAL INSPECTION - Neurological Exam Neurological Exam: Oriented x3 - Psychiatric Exam Psychiatric exam: Normal Affect - Skin Skin Exam: Pallor Assessment and Plan - Assessment and Plan (Free Text) Assessment: esrf hyperkaleamia cad dm improved Plan: dic
[2017-10-19] MEDS ORDERED: EPOETIN ALFA 4,000 UNIT/ML ML Dialysis IV SCH (10:00)
[2017-10-19] MEDS: Divalproex 500 mg DR Tab PO SCH ×2 (10:02→19:00)
[2017-10-19 19:06] VITALS: BP 156/75; PULSE 122; RESP 20; TEMP 98; O2SAT 96
== END 2017-10-19 20:55 | disposition home or self-care (01) ==
LOC: C.ER 16:06 → C.9E 18:35 → C.5S 19:50
PROVIDERS: ADMIT Internal Medicine; ATTEND Internal Medicine
DX: E87.5 Hyperkalemia (principal); R07.89 Other chest pain; E03.9 Hypothyroidism, unspecified; E11.22 Type 2 diabetes mellitus with diabetic chronic kidney disease; E11.36 Type 2 diabetes mellitus with diabetic cataract; I13.2 Hypertensive heart and chronic kidney disease with heart failure and with stage 5 chronic kidney disease, or end stage renal disease; E78.5 Hyperlipidemia, unspecified; F41.9 Anxiety disorder, unspecified; F02.80 Dementia in other diseases classified elsewhere, unspecified severity, without behavioral disturbance, psychotic disturbance, mood disturbance, and anxiety; G30.9 Alzheimer's disease, unspecified; G40.909 Epilepsy, unspecified, not intractable, without status epilepticus; I25.10 Atherosclerotic heart disease of native coronary artery without angina pectoris; D64.9 Anemia, unspecified; E78.00 Pure hypercholesterolemia, unspecified; I50.9 Heart failure, unspecified; I48.91 Unspecified atrial fibrillation; N18.6 End stage renal disease; J44.9 Chronic obstructive pulmonary disease, unspecified; Z86.73 Personal history of transient ischemic attack (TIA), and cerebral infarction without residual deficits; H54.8 Legal blindness, as defined in USA; Z89.512 Acquired absence of left leg below knee; Z95.1 Presence of aortocoronary bypass graft; Z95.5 Presence of coronary angioplasty implant and graft; Z99.2 Dependence on renal dialysis
CPT/HCPCS: 36415; 71045; 80053; 80164; 80299; 82948; 84146; 84484; 85025; 85027; 85610; 85730; 93005; 96372; 96374; 96375; 96376; 99285; G0257; G0378; J0610; J0885; J1644; J2270

== ENCOUNTER 2017-10-23 00:44 | Emergency (ER) | payer OTHER ==
[2017-10-23 00:44] VITALS: PULSE 66; BMI 18.8
[2017-10-23 00:57] VITALS: O2SAT 100
[2017-10-23] MEDS ORDERED: Aluminum Hydroxide/Magnesium Hydroxide Susp (30 mL) PO STA (01:17)
--- NOTE | 2017-10-23 01:19 | C.PDOC ---
History Of Present Illness 37 y/o male, whose PMHx includes IDDM, severe peripheral arterial disease, bilateral BKA, and is on hemodialysis, presents to the ED for evaluation of epigastric abdominal pain x 3 days. Patient also admits to some diarrhea for the past 3 days. Patient states he was last dialyzed yesterday. Patient denies fever, chills, vomiting, or similar symptoms in the past. Patient prior surgical history includes cholecystectomy. Chief Complaint (Nursing): Abdominal Pain History Per: Patient History/Exam Limitations: no limitations Onset/Duration Of Symptoms: Days Current Symptoms Are (Timing): Still Present Location Of Pain/Discomfort: Epigastric Past Medical History Reviewed: Historical Data, Nursing Documentation, Vital Signs Vital Signs: Last Vital Signs Temp 98.7 F 10/23/17 04:36 Pulse 84 10/23/17 04:36 Resp 20 10/23/17 04:36 BP 166/84 H 10/23/17 04:36 Pulse Ox 100 10/23/17 04:36 - Medical History PMH: Alzheimer's Disease, Anemia, Anxiety, Arthritis, Asthma, Atrial Fibrillation, Bronchitis, CAD, Cardia Arrhythmia, CHF, COPD, CVA, Depression, Diabetes, Deep Vein Thrombosis, Gastritis, Gastrointestinal Ulcer, Gall Bladder Disease, HTN, Hypercholesterolemia, Hypothyroidism, Pneumonia, End Stage Renal Disease, Chronic Kidney Disease, Seizures Denies: Hyperthyroidism, Sexually Transmitted Disease Surgical History: CABG (12/2009), Cholecystectomy (2011), Coronary Stent - [facility] Procedures (10/03/17) ABDOMINAL WALL SINOGRAM (12/31/13) C.A.T. SCAN OF ABDOMEN (10/31/13) CENTRAL VENOUS CATHETER PLACEMENT WITH GUIDANCE (02/10/15) CHANGE OTHER DEVICE IN TRUNK SUBCU/FASCIA, ELECTRO MECHANICAL ASSEMBLER APPROACH (06/01/17) DILATE R ANT TIB ART W DRUG-ELUT INTRALUM, PERC (08/12/15) DILATION OF LEFT FEMORAL ARTERY, PERCUTANEOUS APPROACH (07/04/16) DILATION OF RIGHT FEMORAL ARTERY, PERCUTANEOUS APPROACH (08/12/15) DILATION OF RIGHT POPLITEAL ARTERY, PERCUTANEOUS APPROACH (08/12/15) DX ULTRASOUND-HEART (01/05/13) ENTERAL INFUSION OF CONCENTRATED NUT. SUBSTANCES (06/28/13) EXCIS DEBRIDE OF WOUND, INFECT, OR BURN (08/03/14) EXCISION OF STOMACH, ENDO, DIAGN (03/03/17) EXTIRPATION OF MATTER FROM L FEM ART, PERC APPROACH (07/04/16) EXTIRPATION OF MATTER FROM R FEM ART, PERC APPROACH (08/12/15) EXTIRPATION OF MATTER FROM R POPL ART, PERC APPROACH (08/12/15) FLUOROSCOPY OF L LOW EXTREM ART USING L OSM CONTRAST (08/12/15) FLUOROSCOPY OF R LOW EXTREM ART USING L OSM CONTRAST (08/12/15) FLUOROSCOPY OF RIGHT JUGULAR VEINS, GUIDANCE (06/01/17) FREE SKIN GRAFT NEC (08/03/14) HEAD SOFT TISS X-RAY NEC (04/15/13) HEMODIALYSIS (04/28/15) INCIS W REM OF FORIEGN BODY OR DEV FROM SKIN & SUBCUT TISSUE (08/08/13) INSERT INFUSION DEV IN R INT JUGULAR VEIN, PERC (06/01/17) INSERTION OF INFUSION DEV INTO R SUBCLAV VEIN, PERC APPROACH (01/19/16) INSERTION OF INFUSION DEV INTO SUP VENA CAVA, PERC APPROACH (05/17/17) INSPECTION OF UPPER INTESTINAL TRACT, ENDO (03/03/17) INTRODUCE OF OTH THROMBOLYTIC INTO PERIPH ART, PERC APPROACH (08/12/15) LAPAROSCOPIC CHOLECYSTECTOMY (09/21/13) LOC EXC LES METATAR/TAR (06/01/14) PACKED CELL TRANSFUSION (06/01/14) PERCUTAN LIVER ASPIRAT (12/31/13) PERFORMANCE OF URINARY FILTRATION, MULTIPLE (05/17/17) PERFORMANCE OF URINARY FILTRATION, SINGLE (12/18/16) SKIN & SUBQ INCISION NEC (10/24/14) TETANUS TOXOID ADMINIST (06/13/14) TRANSFUSE NONAUT RED BLOOD CELLS IN PERIPH VEIN, PERC (04/09/17) ULTRASONOGRAPHY OF RIGHT AND LEFT HEART (04/09/17) ULTRASONOGRAPHY OF SUPERIOR VENA CAVA, GUIDANCE (02/20/17) VENOUS CATHETERIZATION FOR RENAL DIALYSIS (08/08/13) VENOUS CATHETERIZATION NEC (04/30/13) Family History: States: Unknown Family Hx - Social History Hx Tobacco Use: No Hx Alcohol Use: No Hx Substance Use: No - Immunization History Hx Tetanus Toxoid Vaccination: Yes Hx Influenza Vaccination: Yes Hx Pneumococcal Vaccination: Yes Review Of Systems Constitutional: Negative for: Fever, Chills Gastrointestinal: Positive for: Abdominal Pain, Diarrhea. Negative for: Vomiting Physical Exam - Physical Exam Appears: Non-toxic, No Acute Distress, Chronically Ill, Other (older than stated age ) Skin: Normal Color, Warm, Dry Head: Atraumatic, Normacephalic Eye(s): bilateral: Normal Inspection Oral Mucosa: Moist Neck: Supple Chest: Symmetrical, No Deformity, No Tenderness, Other (subclavian dialysis catheter in place ) Cardiovascular: Rhythm Regular, No Murmur Respiratory: Normal Breath Sounds, No Rales, No Rhonchi, No Wheezing Gastrointestinal/Abdominal: Bowel Sounds (active ), Soft, Tenderness ( epigastric ), No Guarding, No Rebound Extremity: Normal ROM, Capillary Refill (less than 2 seconds ), Other ( bilateral below-knee amputation ) Neurological/Psych: Oriented x3, Normal Speech, Normal Cognition ED Course And Treatment - Laboratory Results Result Diagrams: 10/23/17 01:50 10/23/17 01:50 O2 Sat by Pulse Oximetry: 100 (on RA ) Pulse Ox Interpretation: Normal Medical Decision Making Medical Decision Making: Impression: epigastric pain, GERD, gastritis, peptic ulcer disease Progress: Bloodwork ordered and reviewed. Lidocaine 2% Viscous, Maalox PO, and Pepcid PO administered. Disposition - Disposition Referrals: [facility] [Outside] Disposition: HOME/ ROUTINE Disposition Time: 06:49 Condition: GOOD Prescriptions: Pantoprazole Sodium [Protonix] 20 mg PO DAILY #10 ect Instructions: Gastritis, Acute Abdomen (Belly Pain), Adult (DC) Forms: [facility] (Albanian) Print Language: DANISH - Clinical Impression Clinical Impression: Gastritis - Scribe Statement The provider has reviewed the documentation as recorded by the Scribe (Yaneli Tavera) Provider Attestation: All medical record entries made by the Scribe were at my direction and personally dictated by me. I have reviewed the chart and agree that the record accurately reflects my personal performance of the history, physical exam, medical decision making, and the department course for this patient. I have also personally directed, reviewed, and agree with the discharge instructions and disposition.
[2017-10-23] MEDS ORDERED: Aluminum Hydroxide/Magnesium Hydroxide Susp (30 mL) ONE (01:44)
[2017-10-23 01:53] LABS: BASO # 0.1 K/uL (0.0-0.2); BASO % 0.7 % (0.0-2.0); EOS # 0.3 K/uL (0.0-0.7); HEMOGLOBIN 9.6 g/dL (12.0-18.0); LYMPH # 1.8 K/uL (1.0-4.3); LYMPH % 17.9 % (20.0-40.0); MEAN CELL VOLUME 94.6 fL (80.0-94.0); MEAN CORPUSCULAR HEMOGLOBIN 31.8 pg (27.0-31.0); MEAN CORPUSCULAR HGB CONC 33.7 g/dL (33.0-37.0); MEAN PLATELET VOLUME 8.9 fL (7.2-11.7); MONO # 0.6 K/uL (0.0-0.8); MONO % 5.7 % (0.0-10.0); NEUT # 7.4 K/uL (1.8-7.0); NEUT % 72.7 % (50.0-75.0); RBC 3.01 Mil/uL (4.40-5.90); RED CELL DISTRIBUTION WIDTH 16.6 % (11.5-14.5); WHITE BLOOD COUNT 10.1 K/uL (4.8-10.8)
[2017-10-23 02:22] LABS: ALBUMIN 4.1 g/dL (3.5-5.0); CALCIUM 8.1 mg/dl (8.6-10.4)
[2017-10-23 08:23] VITALS: BP 160/82; PULSE 90; RESP 18; TEMP 98.1
== END 2017-10-23 08:05 | disposition home or self-care (01) ==
LOC: C.ER 00:44
DX: K29.70 Gastritis, unspecified, without bleeding (principal)

== ENCOUNTER 2017-10-23 19:27 | Inpatient (IN) | payer OTHER ==
[2017-10-23 19:27] VITALS: PULSE 66; BMI 18.8
[2017-10-23] MEDS ORDERED: Aspirin 325 mg EC Tablets PO STA (20:00)
--- NOTE | 2017-10-23 20:02 | C.PDOC ---
History Of Present Illness 37 y/o male presents to the ER complaining of chest pressure/tightness, onset a couple of hours ago. No nausea, vomiting, diaphoresis, shortness of breath, fever or chills. Pain is described as dull and aching, rated 4/10 discomfort. PMD: Sybil Li Time Seen by Provider: 10/23/17 19:59 Chief Complaint (Nursing): Chest Pain History Per: Patient History/Exam Limitations: no limitations Onset/Duration Of Symptoms: Hrs Current Symptoms Are (Timing): Still Present Severity: Moderate Pain Scale Rating Of: 4 Quality: Dull, Tightness Modifying Factors: None Exacerbating Factors: None Alleviating Factors: None Recent travel outside of the [place]: No Additional History Per: Patient Past Medical History Reviewed: Historical Data, Nursing Documentation, Vital Signs Vital Signs: Last Vital Signs Temp 98.5 F 10/23/17 19:41 Pulse 80 10/23/17 19:44 Resp 18 10/23/17 19:41 BP 180/58 H 10/23/17 19:44 Pulse Ox 100 10/23/17 21:16 - Medical History PMH: Alzheimer's Disease, Anemia, Anxiety, Arthritis, Asthma, Atrial Fibrillation, Bronchitis, CAD, Cardia Arrhythmia, CHF, COPD, CVA, Depression, Diabetes, Deep Vein Thrombosis, Gastritis, Gastrointestinal Ulcer, Gall Bladder Disease, HTN, Hypercholesterolemia, Hypothyroidism, Pneumonia, End Stage Renal Disease, Chronic Kidney Disease, Seizures Denies: Hyperthyroidism, Sexually Transmitted Disease Surgical History: CABG (12/2009), Cholecystectomy (2011), Coronary Stent - [facility] Procedures (10/03/17) ABDOMINAL WALL SINOGRAM (12/31/13) C.A.T. SCAN OF ABDOMEN (10/31/13) CENTRAL VENOUS CATHETER PLACEMENT WITH GUIDANCE (02/10/15) CHANGE OTHER DEVICE IN TRUNK SUBCU/FASCIA, BOAT PULLER APPROACH (06/01/17) DILATE R ANT TIB ART W DRUG-ELUT INTRALUM, PERC (08/12/15) DILATION OF LEFT FEMORAL ARTERY, PERCUTANEOUS APPROACH (07/04/16) DILATION OF RIGHT FEMORAL ARTERY, PERCUTANEOUS APPROACH (08/12/15) DILATION OF RIGHT POPLITEAL ARTERY, PERCUTANEOUS APPROACH (08/12/15) DX ULTRASOUND-HEART (01/05/13) ENTERAL INFUSION OF CONCENTRATED NUT. SUBSTANCES (06/28/13) EXCIS DEBRIDE OF WOUND, INFECT, OR BURN (08/03/14) EXCISION OF STOMACH, ENDO, DIAGN (03/03/17) EXTIRPATION OF MATTER FROM L FEM ART, PERC APPROACH (07/04/16) EXTIRPATION OF MATTER FROM R FEM ART, PERC APPROACH (08/12/15) EXTIRPATION OF MATTER FROM R POPL ART, PERC APPROACH (08/12/15) FLUOROSCOPY OF L LOW EXTREM ART USING L OSM CONTRAST (08/12/15) FLUOROSCOPY OF R LOW EXTREM ART USING L OSM CONTRAST (08/12/15) FLUOROSCOPY OF RIGHT JUGULAR VEINS, GUIDANCE (06/01/17) FREE SKIN GRAFT NEC (08/03/14) HEAD SOFT TISS X-RAY NEC (04/15/13) HEMODIALYSIS (04/28/15) INCIS W REM OF FORIEGN BODY OR DEV FROM SKIN & SUBCUT TISSUE (08/08/13) INSERT INFUSION DEV IN R INT JUGULAR VEIN, PERC (06/01/17) INSERTION OF INFUSION DEV INTO R SUBCLAV VEIN, PERC APPROACH (01/19/16) INSERTION OF INFUSION DEV INTO SUP VENA CAVA, PERC APPROACH (05/17/17) INSPECTION OF UPPER INTESTINAL TRACT, ENDO (03/03/17) INTRODUCE OF OTH THROMBOLYTIC INTO PERIPH ART, PERC APPROACH (08/12/15) LAPAROSCOPIC CHOLECYSTECTOMY (09/21/13) LOC EXC LES METATAR/TAR (06/01/14) PACKED CELL TRANSFUSION (06/01/14) PERCUTAN LIVER ASPIRAT (12/31/13) PERFORMANCE OF URINARY FILTRATION, MULTIPLE (05/17/17) PERFORMANCE OF URINARY FILTRATION, SINGLE (12/18/16) SKIN & SUBQ INCISION NEC (10/24/14) TETANUS TOXOID ADMINIST (06/13/14) TRANSFUSE NONAUT RED BLOOD CELLS IN PERIPH VEIN, PERC (04/09/17) ULTRASONOGRAPHY OF RIGHT AND LEFT HEART (04/09/17) ULTRASONOGRAPHY OF SUPERIOR VENA CAVA, GUIDANCE (02/20/17) VENOUS CATHETERIZATION FOR RENAL DIALYSIS (08/08/13) VENOUS CATHETERIZATION NEC (04/30/13) Family History: States: No Known Family Hx - Social History Hx Tobacco Use: No Hx Alcohol Use: No Hx Substance Use: No - Immunization History Hx Tetanus Toxoid Vaccination: Yes Hx Influenza Vaccination: Yes Hx Pneumococcal Vaccination: Yes Review Of Systems Constitutional: Negative for: Fever, Chills, Sweats Cardiovascular: Positive for: Chest Pain Respiratory: Negative for: Shortness of Breath Gastrointestinal: Negative for: Nausea, Vomiting Musculoskeletal: Negative for: Back Pain Skin: Negative for: Rash Neurological: Negative for: Weakness Psych: Negative for: Anxiety Physical Exam - Physical Exam Appears: Non-toxic, No Acute Distress Skin: Warm, Dry Head: Normacephalic Eye(s): bilateral: Normal Inspection Oral Mucosa: Moist Neck: Trachea Midline, Supple Chest: Symmetrical, Other (CABG scar noted) Cardiovascular: Rhythm Regular Respiratory: No Rales, Rhonchi (scattered), No Wheezing Gastrointestinal/Abdominal: Bowel Sounds (good), Soft, No Tenderness, No Distention Back: Normal Inspection Extremity: No Tenderness, Deformity (bilateral BKA), No Swelling Neurological/Psych: Oriented x3 Gait: Unable To Assess ED Course And Treatment - Laboratory Results Result Diagrams: 10/23/17 21:56 10/23/17 22:08 ECG: Interpreted By Me, Viewed By Me ECG Rhythm: Sinus Rhythm (74), Nonspecific Changes (lvh with repol abn) O2 Sat by Pulse Oximetry: 100 Pulse Ox Interpretation: Normal - Radiology CXR: Interpreted by Me, Viewed By Me CXR Interpretation: Yes: Cardiomegaly, Other (cabg, port right chest, mild chf) . No: Infiltrates, Fracture, Pnemothorax Progress Note: Will initiate cardiac work-up including EKG, labs, CXR. Pt given 325mg ASA Disposition Discussed With : Sybil Li Comment: accepted the pt [facility] er service and took over the care at 10:41 PM Doctor Will See Patient In The: Hospital Counseled Patient/Family Regarding: Studies Performed, Diagnosis - Disposition Disposition: HOSPITALIZED Disposition Time: 19:59 Condition: FAIR Forms: [facility] (South Korean) - POA Present On Arrival: Poor Glycemic Control - Clinical Impression Clinical Impression: Uncontrolled diabetes mellitus, Chest pain, Diabetes mellitus with cardiac complication, ESRD (end stage renal disease) on dialysis, NSTEMI (non-ST elevated myocardial infarction) - Scribe Statement The provider has reviewed the documentation as recorded by the Scribe (Yvonne Jones) Provider Attestation: All medical record entries made by the Scribe were at my direction and personally dictated by me. I have reviewed the chart and agree that the record accurately reflects my personal performance of the history, physical exam, medical decision making, and the department course for this patient. I have also personally directed, reviewed, and agree with the discharge instructions and disposition. Decision To Admit - Pt Status Changed To: Hospital Disposition Of: Inpatient - Admit Certification Admit to Inpatient:: After my assessment, the patient will require hospitalization for at least two midnights. This is because of the severity of symptoms shown, intensity of services needed, and/or the medical risk in this patient being treated as an outpatient. - InPatient: Physician Admission Certification: I certify that this patient requires 2 or more midnights of care for the following reason:: After my assessment, the patient will require hospitalization for at least two midnights. This is because of the severity of symptoms shown, intensity of services needed, and/or the medical risk in this patient being treated as an outpatient. - . Bed Request Type: Telemetry Admitting Physician: Sybil Li Patient Diagnosis: Uncontrolled diabetes mellitus, Chest pain, Diabetes mellitus with cardiac complication, ESRD (end stage renal disease) on dialysis
[2017-10-23] MEDS ORDERED: Aspirin 325 mg EC Tablets PO ONE (21:54)
[2017-10-23 22:06] LABS: BASO % 0.5 % (0.0-2.0); EOS # 0.3 K/uL (0.0-0.7); EOS % 3.7 % (0.0-4.0); HEMOGLOBIN 8.5 g/dL (12.0-18.0); LYMPH # 2.2 K/uL (1.0-4.3); LYMPH % 23.7 % (20.0-40.0); MEAN CORPUSCULAR HEMOGLOBIN 31.8 pg (27.0-31.0); MEAN CORPUSCULAR HGB CONC 33.4 g/dL (33.0-37.0); MEAN PLATELET VOLUME 8.9 fL (7.2-11.7); MONO # 0.7 K/uL (0.0-0.8); MONO % 7.3 % (0.0-10.0); NEUT # 6.1 K/uL (1.8-7.0); NEUT % 64.8 % (50.0-75.0); RBC 2.66 Mil/uL (4.40-5.90); RED CELL DISTRIBUTION WIDTH 16.7 % (11.5-14.5); WHITE BLOOD COUNT 9.4 K/uL (4.8-10.8)
[2017-10-23 22:22] LABS: INR 1.1; PROTHROMBIN TIME 11.8 SECONDS (9.7-12.2)
[2017-10-23 22:34] LABS: ALB/GLOB RATIO 1.1 (1.0-2.1); CALCIUM 8.3 mg/dl (8.6-10.4)
[2017-10-23 22:46] LABS: TROPONIN I 0.236 ng/mL (0.00-0.120)
[2017-10-23] MEDS ORDERED: Ergocalciferol 50,000 Intl Units Cap PO SCH (23:30)
[2017-10-23] MEDS ORDERED: HYDROmorphone 0.5 mg/0.5 ml ISec ONE (23:54)
[2017-10-23] MEDS: HYDROmorphone 1 mg/ml ISec IVP PRN (23:57)
[2017-10-24] MEDS: HYDROmorphone 1 mg/ml ISec IVP PRN ×3 (04:19→22:06)
[2017-10-24] MEDS: Albuterol-Ipratrop 3 mg / 0.5 (3 ml) UD IH SCH ×5 (06:36→21:00)
[2017-10-24 07:25] LABS: CK-MB 1.15 ng/mL (0.0-3.38)
[2017-10-24 08:28] LABS: TROPONIN I 0.252 ng/mL (0.00-0.120)
--- NOTE | 2017-10-24 09:09 | RAD ---
Chest x-ray single frontal view History: Chest pain. Comparison: 10/17/2017 Findings: Moderate venous congestion. Patchy increased markings at the left lung base. Status post median sternotomy and CABG. Lines and tubes in stable position. Cardiomegaly. Degenerative changes in the spine and shoulders. Impression: Moderate venous congestion. Patchy increased markings at the left lung base. Status post median sternotomy and CABG. Lines and tubes in stable position. Cardiomegaly.
[2017-10-24] MEDS: (Novolog) Insulin Aspart, Recombinant 100 u/ml 10 ml vial SC SCH ×3 (09:15→21:47)
[2017-10-24] MEDS ORDERED: (Novolog) Insulin Aspart, Recombinant 100 u/ml 10 ml vial ONE (09:17)
[2017-10-24] MEDS: Multivitamin Vitamin B Complex (Nephro-Vite) Tab PO SCH (09:35)
[2017-10-24] MEDS ORDERED: Amiodarone 900 MG in Dextrose 5% In Water 500 ML IV ONE (10:00)
[2017-10-24] MEDS ORDERED: Multivitamin Vitamin B Complex (Nephro-Vite) Tab PO SCH (10:00)
[2017-10-24] MEDS ORDERED: Pantoprazole 20 mg EC Tab PO SCH (10:00)
--- NOTE | 2017-10-24 11:19 | CP.PCM.CON ---
History of Present Illness - History of Present Illness History of Present Illness: PER ER documentation: 37 y/o male with a history of end stage renal disease, presents to the ER complaining of chest pain and palpitation. Chest pain is chronic and sharp in nature, no diaphoresis, syncope, N/V or CHF Palpitation intermittent: Patient has hx if parox Aflutter and he has been prescribed PO Amiodarone in past. Course: In ER he had recurrence of AFLUTTER RVR 140's and spontaneous conversion to NSR prior to initiating any IV amiodarone or cardizem. > He denies CP or diaphoresis, No fevers or chills, no N/V; No headache or breathing problems. He is oriented and comfortable. Scheduled for HD today. EK09/09/17; NSR, LVH, chronic ST changes lateral, old inferior infarct. 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 moderate pulmonary stenosis Chronic diastolic dysfunction grade 3 Chronic pain Hx of non-compliance with meds and on occasion HD Review of Systems - Review of Systems All systems: reviewed and no additional remarkable complaints except Past Patient History - Infectious Disease Hx of Infectious Diseases: None - Tetanus Immunizations Tetanus Immunization: >10 years Ago - Past Medical History & Family History Past Medical History?: Yes - Past Social History Smoking Status: Never Smoked - CARDIAC Hx Atrial Fibrillation: Yes Hx Cardia Arrhythmia: Yes Hx Congestive Heart Failure: Yes Hx Hypercholesterolemia: Yes Hx Hypertension: Yes - PULMONARY Hx Asthma: Yes Hx Bronchitis: Yes Hx Chronic Obstructive Pulmonary Disease (COPD): Yes Hx Pneumonia: Yes - NEUROLOGICAL Hx Alzheimer's Disease: Yes Hx Seizures: Yes - HEENT Hx HEENT Problems: Yes Hx Blind: Yes (legally blind) Hx Cataracts: Yes - RENAL Hx Chronic Kidney Disease: Yes - ENDOCRINE/METABOLIC Hx Hyperthyroidism: No Hx Hypothyroidism: Yes - HEMATOLOGICAL/ONCOLOGICAL Hx Anemia: Yes - INTEGUMENTARY Hx Dermatological Problems: No - MUSCULOSKELETAL/RHEUMATOLOGICAL Hx Arthritis: Yes - GASTROINTESTINAL Hx Gall Bladder Disease: Yes Hx Gastritis: Yes - GENITOURINARY/GYNECOLOGICAL Hx Sexually Transmitted Disorders: No - PSYCHIATRIC Hx Anxiety: Yes Hx Depression: Yes Hx Substance Use: No - SURGICAL HISTORY Hx Cholecystectomy: Yes (2011) 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/2009) Hx Coronary Stent: Yes - ANESTHESIA Hx Anesthesia: Yes Hx Anesthesia Reactions: No Hx Malignant Hyperthermia: No Meds Allergies/Adverse Reactions: Allergies Allergy/AdvReac Type Severity Reaction Status Date / Time acetaminophen [From Percocet] Allergy RASH Verified 10/23/17 00:59 atenolol Allergy RASH Verified 10/17/17 16:32 digoxin Allergy RASH Verified 10/23/17 00:59 milk Allergy ITCHING Verified 10/17/17 16:32 morphine Allergy RASH Verified 10/23/17 00:59 oxycodone HCl [From Percocet] Allergy RASH Verified 10/23/17 00:59 - Medications Medications: Current Medications Albuterol/Ipratropium (Duoneb 3 Mg/0.5 Mg (3 Ml) Ud) 3 ml IH Q4 [facility] Last Admin: 10/24/17 08:30 Dose: 3 ml Amiodarone HCl (Cordarone) 200 mg PO DAILY [facility] Amlodipine Besylate (Norvasc) 10 mg PO DAILY [facility] Last Admin: 10/24/17 10:20 Dose: 10 mg Aspirin (Aspirin Chewable) 81 mg PO DAILY [facility] Last Admin: 10/24/17 10:19 Dose: 81 mg Calcium Carbonate (Oscal) 500 mg PO BID [facility] Last Admin: 10/24/17 10:20 Dose: 500 mg Carvedilol (Coreg) 25 mg PO BID [facility] Last Admin: 10/24/17 10:19 Dose: 25 mg Clonidine HCl (Catapres-Tts3 0.3 Mg/24 Hr) 1 patch TD Q7D@1000 [facility] Docusate Sodium (Colace) 100 mg PO TID [facility] Last Admin: 10/24/17 10:19 Dose: 100 mg Ergocalciferol (Drisdol 50,000 Intl Units Cap) 1 cap PO Q7D [facility] Last Admin: 10/23/17 23:35 Dose: 1 cap Hydromorphone HCl (Dilaudid) 1 mg IVP Q4H PRN PRN Reason: Pain, moderate (4-7) Last Admin: 10/24/17 10:13 Dose: 1 mg Insulin Aspart (Novolog) 0 unit SC ACHS [facility] PRN Reason: Protocol Last Admin: 10/24/17 09:15 Dose: 2 unit Insulin Glargine (Lantus) 10 unit SC HS [facility] Isosorbide Mononitrate (Imdur) 60 mg PO DAILY [facility] Lactulose (Enulose) 30 gm PO DAILY [facility] Levetiracetam (Keppra) 500 mg PO BID [facility] Montelukast Sodium (Singulair) 10 mg PO DAILY [facility] Pantoprazole Sodium (Protonix Ec Tab) 40 mg PO DAILY [facility] Rosuvastatin Calcium (Crestor) 10 mg PO HS [facility] Sertraline HCl (Zoloft) 50 mg PO DAILY [facility] Valproate Sodium (Depakene Oral Soln) 250 mg PO QID [facility] Vitamin B Complex/Vit C/Folic Acid (Nephro-Courtney) 1 tab PO 0800 [facility] Last Admin: 10/24/17 09:35 Dose: 1 tab Physical Exam - Constitutional Appears: No Acute Distress, Chronically Ill - Head Exam Head Exam: ATRAUMATIC, NORMAL INSPECTION, NORMOCEPHALIC - Eye Exam Eye Exam: EOMI. absent: Normal appearance - ENT Exam ENT Exam: Mucous Membranes Moist, Normal Oropharynx - Respiratory Exam Respiratory Exam: Clear to Auscultation Bilateral, NORMAL BREATHING PATTERN. absent: Rales, Rhonchi, Wheezes - Cardiovascular Exam Cardiovascular Exam: REGULAR RHYTHM, +S1, +S2. absent: +S4, Systolic Murmur - GI/Abdominal Exam GI & Abdominal Exam: Normal Bowel Sounds, Soft. absent: Tenderness - Extremities Exam Extremities exam: Negative for: normal inspection (b/l BKA) - Neurological Exam Neurological exam: Alert, Oriented x3 - Psychiatric Exam Psychiatric exam: Normal Affect, Normal Mood - Skin Skin Exam: Normal Color, Warm Results - Vital Signs Recent Vital Signs: Last Vital Signs Temp 97.6 F 10/24/17 07:32 Pulse 78 10/24/17 09:16 Resp 16 10/24/17 09:16 BP 219/65 H 10/24/17 10:19 Pulse Ox 100 10/24/17 09:16 - Labs Result Diagrams: 10/23/17 21:56 10/23/17 22:08 Labs: Laboratory Results - last 24 hr 10/23/17 10/23/17 10/23/17 21:56 22:08 22:08 WBC 9.4 RBC 2.66 L Hgb 8.5 L Hct 25.3 L MCV 95.0 H MCH 31.8 H MCHC 33.4 RDW 16.7 H Plt Count 210 MPV 8.9 Neut % (Auto) 64.8 Lymph % (Auto) 23.7 [place] % (Auto) 7.3 Eos % (Auto) 3.7 Baso % (Auto) 0.5 Neut # (Auto) 6.1 Lymph # (Auto) 2.2 [place] # (Auto) 0.7 Eos # (Auto) 0.3 Baso # (Auto) 0.0 PT 11.8 INR 1.1 APTT 33 Sodium 131 L Potassium 4.8 Chloride 92 L Carbon Dioxide 26 Anion Gap 18 BUN 55 H Creatinine 5.0 H Est GFR ( Amer) 16 Est GFR (Non-Af Amer) 13 POC Glucose (mg/dL) Random Glucose 344 H Calcium 8.3 L Total Bilirubin 0.5 AST 27 ALT 18 L D Alkaline Phosphatase 233 H Total Creatine Kinase CK-MB (Mass) Troponin I 0.2360 H* Total Protein 7.7 Albumin 4.0 Globulin 3.7 Albumin/Globulin Ratio 1.1 10/24/17 10/24/17 06:46 07:34 WBC RBC Hgb Hct MCV MCH MCHC RDW Plt Count MPV Neut % (Auto) Lymph % (Auto) [place] % (Auto) Eos % (Auto) Baso % (Auto) Neut # (Auto) Lymph # (Auto) [place] # (Auto) Eos # (Auto) Baso # (Auto) PT INR APTT Sodium Potassium Chloride Carbon Dioxide Anion Gap BUN Creatinine Est GFR ( Amer) Est GFR (Non-Af Amer) POC Glucose (mg/dL) 212 H Random Glucose Calcium Total Bilirubin AST ALT Alkaline Phosphatase Total Creatine Kinase 25 L CK-MB (Mass) 1.15 Troponin I 0.2520 H* Total Protein Albumin Globulin Albumin/Globulin Ratio - EKG Data EKG Interpreted by: Myself Assessment & Plan - Assessment and Plan (Free Text) Assessment: 37 y/o with transgender phenotype > DM brittle poorly controlled and hx of non-compliance > HTN is chronic and stable; with hx of non-compliance and sporadic lability > ESRD on HD with hx of non-compliance and missed sessions > PVD s/p bilateral BKA due to recurrent infections and progressive gangrene and non-healing ulcers > Legally blind Coronary artery disease s/p CABG and subsequent PCI all grafts are closed > He remains with preserved LV function and advanced diastolic dysfunction despite diffuse small vessel CAD (too small for PCI) > Recurrent anemia and GI bleed in past and present: deemed not a good candidate for DAPT > cont ASA if tolerated > EKG: Dylaner, chronic LVH with strain ---> Now in NSR with chronic LVH strain pattern. > BDLN troponin < 0.2 : this is c/w with tachycardia, chronic CHF/diastolic dysfunction and ESRD on top of demand ischemia from chronic non- revascularizable CAD. Medical therapy remains his most important and sole treatment option at this stage of chronic CAD. He unfortunately is not a candidate for any surgical or percutaneous therapy. He has had hx of atrial catheter related thrombus in past ---> he was challenged with AC on many occasions but due to GI bleed deemed unsafe.. He has known documented hx of parx AFLUTTER/AFIB > Continue Amiodarone HCl (Cordarone) 200 mg PO DAILY [facility] Amlodipine Besylate (Norvasc) 10 mg PO DAILY [facility] Last Admin: 10/24/17 10:20 Dose: 10 mg Aspirin (Aspirin Chewable) 81 mg PO DAILY [facility] Last Admin: 10/24/17 10:19 Dose: 81 mg Carvedilol (Coreg) 25 mg PO BID [facility] Last Admin: 10/24/17 10:19 Dose: 25 mg Clonidine HCl (Catapres-Tts3 0.3 Mg/24 Hr) 1 patch TD Q7D@1000 [facility] Isosorbide Mononitrate (Imdur) 60 mg PO DAILY [facility] Rosuvastatin Calcium (Crestor) 10 mg PO HS [facility] -----------> Titrate these meds as tolerated to achieve optimal BP and HR control. (<120/80 and HR <65). * He has had hx of atrial catheter related thrombus in past ---> he was challenged with AC on many occasions but due to GI bleed deemed unsafe * he has known documented hx of parx AFLUTTER/AFIB Cont HD to maintain volume status add hydralazine 50 TID Add ranexa 500 BID - Date & Time Date: 10/24/17 Time: 11:34
[2017-10-24] MEDS ORDERED: Albuterol-Ipratrop 3 mg / 0.5 (3 ml) UD ONE (11:34)
[2017-10-24] MEDS: Pantoprazole 40 mg EC Tab PO SCH (11:45)
[2017-10-24] MEDS: Valproic Acid 250 mg/5 ml UD Cup PO SCH ×4 (11:45→22:00)
--- NOTE | 2017-10-24 11:57 | CP.PCM.CON ---
History of Present Illness - History of Present Illness History of Present Illness: Initial Nephrology Consultation: Assessment: Stable chronic chest pain, dyspnoea, A flutter Diabetic chronic Kidney Disease (E11.22) Hypertensive Chronic Kidney Disease (I12.0) End stage renal disease (N18.6) dependence on hemodialysis (Z99.2) (TTS) via AVF Anemia (D64.9), Hyperphosphatemia (E83.39), Secondary Hyperparathyroidism (E21.1 ), HTN (I12.0) CAD s/p CABG, diastolic CHF, parox A flutter/fib, intra-cardiac thrombus, hx of Heparin induced thrombocytopenia, hx of seizure, blindness Plan: Will plan for dialysis today. Continue with Nephrovite 1 tab/day. PRBC as needed for anemia. plan for Epogen once BP better. last Hb 8.5 Continue with phos binders home dose BP control with meds as ordered. ? compliance to meds at home since BP usually high when pt comes initially but gets under much better controlled while in hospital. Glycemic control, Dialysis consistent diet Further work up/management as per primary team Dose meds/antibiotics (if needed) for ESRD status. Avoid fleets enema/magnesium based laxatives. cardiology following Thanks for allowing me to participate in care of your patient. Will follow patient with you. Please call if any Qs Dr Eric Temple Office: [phone] Chief Complaint; chest pain SOB and palpitations HPI: Pt is a 37 y/o transgender with hx of ESRD on hemodialysis (TTS) via permacath, chronic anemia, hyperphosphatemia, secondary hyperparathyroidism, Diabetes Mellitus, hypertension, CAD s/p CABG, diastolic CHF, pA flutter/fib, intra-cardiac thrombus, Heparin induced thrombocytopenia in past presented with complaints of acute on chronic chest pain. pt with frequent and multiple hospitalizations for same. also c/o palpitations and SOB c/o chronic chest pain, denies palpitation, c/o chronic shortness of breath ROS: All other negative except as in HPI. feels better now. chest pain better. SOB better. resolved palpitations Physical Examination: General Appearance: Comfortable, in no acute respiratory distress, co-operative . Vitals reviewed and noted as below Head; Atraumatic, normocephalic ENT: no ulcers no thrush. Tongue is midline. Oropharynx: no rash or ulcers. EYES: Pt is blind both eyes Neck; supple no lymphadenopathy, no thyromegaly or bruit Lungs: Normal respiratory rate/effort. Breath sounds bilateral equal clear with few basal crackles Heart: Normal rate. s1s2 normal. No rub or gallop. Extremities: no edema. No varicose veins. has b/l BKA Neurological: Patient is alert, awake and oriented to person, place and time. No focal deficit. Strength bilateral appropriate and equal Skin: Warm and dry. Normal turgor. No rash. Palpitation: Normal elasticity for age Abdomen: Abdomen is soft. Bowel sounds +. There is no abdominal tenderness, no guarding/rigidity or organomegaly Psych: limited insight and has normal affect/mood MSK: no joint tenderness or swelling. Digits and nails normal, no deformity : kidney or bladder not palpable Access: permacath Labs/imaging reviewed. Past medical history, past surgical history, family history, social history, allergy reviewed and noted as below Family Hx: no hx of CKD. Non contributory Past Patient History - Infectious Disease Hx of Infectious Diseases: None - Tetanus Immunizations Tetanus Immunization: >10 years Ago - Past Medical History & Family History Past Medical History?: Yes - Past Social History Smoking Status: Never Smoked - CARDIAC Hx Atrial Fibrillation: Yes Hx Cardia Arrhythmia: Yes Hx Congestive Heart Failure: Yes Hx Hypercholesterolemia: Yes Hx Hypertension: Yes - PULMONARY Hx Asthma: Yes Hx Bronchitis: Yes Hx Chronic Obstructive Pulmonary Disease (COPD): Yes Hx Pneumonia: Yes - NEUROLOGICAL Hx Alzheimer's Disease: Yes Hx Seizures: Yes - HEENT Hx HEENT Problems: Yes Hx Blind: Yes (legally blind) Hx Cataracts: Yes - RENAL Hx Chronic Kidney Disease: Yes - ENDOCRINE/METABOLIC Hx Hyperthyroidism: No Hx Hypothyroidism: Yes - HEMATOLOGICAL/ONCOLOGICAL Hx Anemia: Yes - INTEGUMENTARY Hx Dermatological Problems: No - MUSCULOSKELETAL/RHEUMATOLOGICAL Hx Arthritis: Yes - GASTROINTESTINAL Hx Gall Bladder Disease: Yes Hx Gastritis: Yes - GENITOURINARY/GYNECOLOGICAL Hx Sexually Transmitted Disorders: No - PSYCHIATRIC Hx Anxiety: Yes Hx Depression: Yes Hx Substance Use: No - SURGICAL HISTORY Hx Cholecystectomy: Yes (2011) 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/2009) Hx Coronary Stent: Yes - ANESTHESIA Hx Anesthesia: Yes Hx Anesthesia Reactions: No Hx Malignant Hyperthermia: No Meds Allergies/Adverse Reactions: Allergies Allergy/AdvReac Type Severity Reaction Status Date / Time acetaminophen [From Percocet] Allergy RASH Verified 10/23/17 00:59 atenolol Allergy RASH Verified 10/17/17 16:32 digoxin Allergy RASH Verified 10/23/17 00:59 milk Allergy ITCHING Verified 10/17/17 16:32 morphine Allergy RASH Verified 10/23/17 00:59 oxycodone HCl [From Percocet] Allergy RASH Verified 10/23/17 00:59 - Medications Medications: Current Medications Albuterol/Ipratropium (Duoneb 3 Mg/0.5 Mg (3 Ml) Ud) 3 ml IH Q4 [facility] Last Admin: 10/24/17 11:42 Dose: 3 ml Amiodarone HCl (Cordarone) 200 mg PO DAILY [facility] Amlodipine Besylate (Norvasc) 10 mg PO DAILY [facility] Last Admin: 10/24/17 10:20 Dose: 10 mg Aspirin (Aspirin Chewable) 81 mg PO DAILY [facility] Last Admin: 10/24/17 10:19 Dose: 81 mg Calcium Carbonate (Oscal) 500 mg PO BID [facility] Last Admin: 10/24/17 10:20 Dose: 500 mg Carvedilol (Coreg) 25 mg PO BID [facility] Last Admin: 10/24/17 10:19 Dose: 25 mg Clonidine HCl (Catapres-Tts3 0.3 Mg/24 Hr) 1 patch TD Q7D@1000 [facility] Docusate Sodium (Colace) 100 mg PO TID [facility] Last Admin: 10/24/17 10:19 Dose: 100 mg Epoetin Tom (Procrit) 4,000 unit IV TTS [facility] Ergocalciferol (Drisdol 50,000 Intl Units Cap) 1 cap PO Q7D [facility] Last Admin: 10/23/17 23:35 Dose: 1 cap Heparin Sodium (Porcine) (Heparin) 3,700 units IVP TTS [facility] Stop: 10/29/17 10:01 Hydralazine HCl (Apresoline) 50 mg PO TID [facility] Hydromorphone HCl (Dilaudid) 1 mg IVP Q4H PRN PRN Reason: Pain, moderate (4-7) Last Admin: 10/24/17 10:13 Dose: 1 mg Insulin Aspart (Novolog) 0 unit SC ACHS [facility] PRN Reason: Protocol Last Admin: 10/24/17 09:15 Dose: 2 unit Insulin Glargine (Lantus) 10 unit SC HS [facility] Isosorbide Mononitrate (Imdur) 60 mg PO DAILY [facility] Last Admin: 10/24/17 11:45 Dose: 60 mg Lactulose (Enulose) 30 gm PO DAILY [facility] Levetiracetam (Keppra) 500 mg PO BID [facility] Last Admin: 10/24/17 11:45 Dose: 500 mg Montelukast Sodium (Singulair) 10 mg PO DAILY [facility] Last Admin: 10/24/17 11:45 Dose: 10 mg Pantoprazole Sodium (Protonix Ec Tab) 40 mg PO DAILY [facility] Last Admin: 10/24/17 11:45 Dose: 40 mg Ranolazine (Ranexa) 500 mg PO BID [facility] Rosuvastatin Calcium (Crestor) 10 mg PO HS [facility] Sertraline HCl (Zoloft) 50 mg PO DAILY [facility] Last Admin: 10/24/17 11:45 Dose: 50 mg Valproate Sodium (Depakene Oral Soln) 250 mg PO QID [facility] Last Admin: 10/24/17 11:45 Dose: 250 mg Vitamin B Complex/Vit C/Folic Acid (Nephro-Courtney) 1 tab PO 0800 [facility] Last Admin: 10/24/17 09:35 Dose: 1 tab Results - Vital Signs Recent Vital Signs: Last Vital Signs Temp 97.6 F 10/24/17 07:32 Pulse 78 10/24/17 09:16 Resp 16 10/24/17 09:16 BP 219/65 H 10/24/17 10:19 Pulse Ox 100 10/24/17 09:16 - Labs Result Diagrams: 10/23/17 21:56 10/23/17 22:08 Labs: Laboratory Results - last 24 hr 10/23/17 10/23/17 10/23/17 21:56 22:08 22:08 WBC 9.4 RBC 2.66 L Hgb 8.5 L Hct 25.3 L MCV 95.0 H MCH 31.8 H MCHC 33.4 RDW 16.7 H Plt Count 210 MPV 8.9 Neut % (Auto) 64.8 Lymph % (Auto) 23.7 [place] % (Auto) 7.3 Eos % (Auto) 3.7 Baso % (Auto) 0.5 Neut # (Auto) 6.1 Lymph # (Auto) 2.2 [place] # (Auto) 0.7 Eos # (Auto) 0.3 Baso # (Auto) 0.0 PT 11.8 INR 1.1 APTT 33 Sodium 131 L Potassium 4.8 Chloride 92 L Carbon Dioxide 26 Anion Gap 18 BUN 55 H Creatinine 5.0 H Est GFR ( Amer) 16 Est GFR (Non-Af Amer) 13 POC Glucose (mg/dL) Random Glucose 344 H Calcium 8.3 L Total Bilirubin 0.5 AST 27 ALT 18 L D Alkaline Phosphatase 233 H Total Creatine Kinase CK-MB (Mass) Troponin I 0.2360 H* Total Protein 7.7 Albumin 4.0 Globulin 3.7 Albumin/Globulin Ratio 1.1 10/24/17 10/24/17 06:46 07:34 WBC RBC Hgb Hct MCV MCH MCHC RDW Plt Count MPV Neut % (Auto) Lymph % (Auto) [place] % (Auto) Eos % (Auto) Baso % (Auto) Neut # (Auto) Lymph # (Auto) [place] # (Auto) Eos # (Auto) Baso # (Auto) PT INR APTT Sodium Potassium Chloride Carbon Dioxide Anion Gap BUN Creatinine Est GFR ( Amer) Est GFR (Non-Af Amer) POC Glucose (mg/dL) 212 H Random Glucose Calcium Total Bilirubin AST ALT Alkaline Phosphatase Total Creatine Kinase 25 L CK-MB (Mass) 1.15 Troponin I 0.2520 H* Total Protein Albumin Globulin Albumin/Globulin Ratio
[2017-10-24] MEDS: Ranolazine 500 mg Extended Release Tablets PO SCH ×2 (12:17→20:29)
[2017-10-24 15:45] LABS: CK-MB 8.61 ng/mL (0.0-3.38)
[2017-10-24 16:17] LABS: TROPONIN I 2.97 ng/mL (0.00-0.120)
[2017-10-24] MEDS: (Lantus) Insulin Glargine, Recombinant SC SCH (21:50)
[2017-10-25] MEDS: Albuterol-Ipratrop 3 mg / 0.5 (3 ml) UD IH SCH ×6 (00:42→19:46)
[2017-10-25] MEDS: HYDROmorphone 1 mg/ml ISec IVP PRN ×5 (03:04→18:20)
--- NOTE | 2017-10-25 06:56 | HP ---
HISTORY OF PRESENT ILLNESS: Mr. Saha is 37-year-old, admitted to hospital with chief complain of chest pain. The patient has history of coronary artery disease, diabetes, hypertension, chronic renal failure, peripheral vascular disease, and cardiac arrhythmia. The patient came to the ER advised admission. PHYSICAL EXAMINATION: GENERAL: The patient is awake, alert, and oriented. VITAL SIGNS: Temperature 98 and pulse 90. HEENT: Within normal limits. NECK: Supple. CHEST: Symmetrical. HEART: Regular. ABDOMEN: Soft. EXTREMITIES: Bilateral amputation. ASSESSMENT AND PLAN: The patient suffers from chest pain rule out angina, cardiac arrhythmia. The patient on bed rest, supportive care. Cardiology evaluation. Kimberly Liao MD
[2017-10-25] MEDS: (Novolog) Insulin Aspart, Recombinant 100 u/ml 10 ml vial SC SCH ×4 (08:57→22:35)
[2017-10-25] MEDS: Multivitamin Vitamin B Complex (Nephro-Vite) Tab PO SCH (08:57)
[2017-10-25] MEDS: Ranolazine 500 mg Extended Release Tablets PO SCH ×2 (10:48→18:13)
[2017-10-25] MEDS: Valproic Acid 250 mg/5 ml UD Cup PO SCH ×4 (10:49→22:50)
[2017-10-25] MEDS: Pantoprazole 40 mg EC Tab PO SCH (10:49)
--- NOTE | 2017-10-25 12:06 | CARD ---
APPROVED REPORT EKG Measurement Heart [id number] <Conclusion> Supraventricular tachycardia Left ventricular hypertrophy with QRS widening and repolarization abnormality Marked ST abnormality, possible anterior subendocardial injury Abnormal ECG
--- NOTE | 2017-10-25 12:06 | CARD ---
APPROVED REPORT EKG Measurement Heart [id number] <Conclusion> Normal sinus rhythm Left ventricular hypertrophy with QRS widening and repolarization abnormality Abnormal ECG
--- NOTE | 2017-10-25 12:06 | CARD ---
APPROVED REPORT EKG Measurement Heart [id number] <Conclusion> Normal sinus rhythm Incomplete left bundle branch block Left ventricular hypertrophy with repolarization abnormality Abnormal ECG
--- NOTE | 2017-10-25 12:33 | CP.PCM.PN ---
Subjective - Date & Time of Evaluation Date of Evaluation: 10/25/17 Time of Evaluation: 12:32 - Subjective Subjective: Nephrology Consultation: Assessment: Stable chronic chest pain, dyspnoea, A flutter Diabetic chronic Kidney Disease (E11.22) Hypertensive Chronic Kidney Disease (I12.0) End stage renal disease (N18.6) dependence on hemodialysis (Z99.2) (TTS) via AVF Anemia (D64.9), Hyperphosphatemia (E83.39), Secondary Hyperparathyroidism (E21.1 ), HTN (I12.0) CAD s/p CABG, diastolic CHF, parox A flutter/fib, intra-cardiac thrombus, hx of Heparin induced thrombocytopenia, hx of seizure, blindness Plan: Will plan for dialysis tomorrow. Continue with Nephrovite 1 tab/day. PRBC as needed for anemia. plan for Epogen with HD. last Hb 8.5 Continue with phos binders home dose BP control with meds as ordered. ? compliance to meds at home since BP usually high when pt comes initially but gets under much better controlled while in hospital. Glycemic control, Dialysis consistent diet Further work up/management as per primary team Dose meds/antibiotics (if needed) for ESRD status. Avoid fleets enema/magnesium based laxatives. cardiology following Thanks for allowing me to participate in care of your patient. Will follow patient with you. Please call if any Qs Dr Eric Temple Office: [phone] HPI: Pt is a 37 y/o transgender with hx of ESRD on hemodialysis (TTS) via permacath, chronic anemia, hyperphosphatemia, secondary hyperparathyroidism, Diabetes Mellitus, hypertension, CAD s/p CABG, diastolic CHF, pA flutter/fib, intra-cardiac thrombus, Heparin induced thrombocytopenia in past presented with complaints of acute on chronic chest pain. pt with frequent and multiple hospitalizations for same. also c/o palpitations and SOB c/o chronic chest pain, denies palpitation, c/o chronic shortness of breath ROS: All other negative except as in HPI. feels better now. chest pain better. SOB better. resolved palpitations Physical Examination: General Appearance: Comfortable, in no acute respiratory distress, co-operative . Vitals reviewed and noted as below Head; Atraumatic, normocephalic ENT: no ulcers no thrush. Tongue is midline. Oropharynx: no rash or ulcers. EYES: Pt is blind both eyes Neck; supple no lymphadenopathy, no thyromegaly or bruit Lungs: Normal respiratory rate/effort. Breath sounds bilateral equal clear with few basal crackles Heart: Normal rate. s1s2 normal. No rub or gallop. Extremities: no edema. No varicose veins. has b/l BKA Neurological: Patient is alert, awake and oriented to person, place and time. No focal deficit. Strength bilateral appropriate and equal Skin: Warm and dry. Normal turgor. No rash. Palpitation: Normal elasticity for age Abdomen: Abdomen is soft. Bowel sounds +. There is no abdominal tenderness, no guarding/rigidity or organomegaly Psych: limited insight and has normal affect/mood MSK: no joint tenderness or swelling. Digits and nails normal, no deformity : kidney or bladder not palpable Access: permacath Labs/imaging reviewed. Past medical history, past surgical history, family history, social history, allergy reviewed and noted as below Family Hx: no hx of CKD. Non contributory Objective - Vital Signs/Intake and Output Vital Signs (last 24 hours): Temp Pulse Resp BP Pulse Ox 97.6 F 70 20 161/69 H 100 10/25/17 07:10 10/25/17 07:10 10/25/17 07:10 10/25/17 07:10 10/25/17 07:10 Intake and Output: 10/25/17 10/25/17 06:59 18:59 Intake Total 200 Output Total 0 Balance 200 - Medications Medications: Current Medications Albuterol/Ipratropium (Duoneb 3 Mg/0.5 Mg (3 Ml) Ud) 3 ml IH RQ4 [facility] Last Admin: 10/25/17 07:43 Dose: Not Given Amiodarone HCl (Cordarone) 200 mg PO DAILY [facility] Last Admin: 10/25/17 10:47 Dose: 200 mg Amlodipine Besylate (Norvasc) 10 mg PO DAILY [facility] Last Admin: 10/24/17 10:20 Dose: 10 mg Aspirin (Aspirin Chewable) 81 mg PO DAILY [facility] Last Admin: 10/25/17 10:48 Dose: 81 mg Calcium Carbonate (Oscal) 500 mg PO BID [facility] Last Admin: 10/25/17 10:48 Dose: 500 mg Carvedilol (Coreg) 25 mg PO BID [facility] Last Admin: 10/24/17 20:29 Dose: 25 mg Clonidine HCl (Catapres-Tts3 0.3 Mg/24 Hr) 1 patch TD Q7D@1000 [facility] Docusate Sodium (Colace) 100 mg PO TID [facility] Last Admin: 10/25/17 10:51 Dose: Not Given Ergocalciferol (Drisdol 50,000 Intl Units Cap) 1 cap PO Q7D [facility] Last Admin: 10/23/17 23:35 Dose: 1 cap Heparin Sodium (Porcine) (Heparin) 3,700 units IVP TTS [facility] Stop: 10/29/17 10:01 Last Admin: 10/24/17 15:46 Dose: 3,700 units Heparin Sodium (Porcine) (Heparin) 5,000 units SC Q12 [facility] Last Admin: 10/25/17 10:50 Dose: Not Given Hydralazine HCl (Apresoline) 50 mg PO TID [facility] Last Admin: 10/25/17 10:48 Dose: 50 mg Hydromorphone HCl (Dilaudid) 1 mg IVP Q4H PRN PRN Reason: Pain, moderate (4-7) Last Admin: 10/25/17 07:09 Dose: 1 mg Insulin Aspart (Novolog) 0 unit SC [facility] PRN Reason: Protocol Last Admin: 10/25/17 12:28 Dose: Not Given Insulin Glargine (Lantus) 10 unit SC [facility] Last Admin: 10/24/17 21:50 Dose: 10 unit Isosorbide Mononitrate (Imdur) 60 mg PO DAILY [facility] Last Admin: 10/25/17 10:48 Dose: 60 mg Lactulose (Enulose) 30 gm PO DAILY [facility] Last Admin: 10/25/17 10:50 Dose: Not Given Levetiracetam (Keppra) 500 mg PO BID [facility] Last Admin: 10/25/17 10:48 Dose: 500 mg Montelukast Sodium (Singulair) 10 mg PO DAILY [facility] Last Admin: 10/25/17 10:47 Dose: 10 mg Pantoprazole Sodium (Protonix Ec Tab) 40 mg PO DAILY [facility] Last Admin: 10/25/17 10:49 Dose: 40 mg Ranolazine (Ranexa) 500 mg PO BID [facility] Last Admin: 10/25/17 10:48 Dose: 500 mg Rosuvastatin Calcium (Crestor) 10 mg PO HS [facility] Last Admin: 10/24/17 21:50 Dose: 10 mg Sertraline HCl (Zoloft) 50 mg PO DAILY [facility] Last Admin: 10/25/17 10:49 Dose: 50 mg Valproate Sodium (Depakene Oral Soln) 250 mg PO QID [facility] Last Admin: 10/25/17 10:49 Dose: 250 mg Vitamin B Complex/Vit C/Folic Acid (Nephro-Courtney) 1 tab PO 0800 [facility] Last Admin: 10/25/17 08:57 Dose: 1 tab - Labs Labs: 10/23/17 21:56 10/23/17 22:08 PT 11.8 SECONDS (9.7-12.2) 10/23/17 22:08 INR 1.1 10/23/17 22:08 APTT 33 SECONDS (21-34) 10/23/17 22:08
--- NOTE | 2017-10-25 12:35 | CP.PCM.PN ---
Subjective - Date & Time of Evaluation Date of Evaluation: 10/25/17 Time of Evaluation: 15:58 - Subjective Subjective: Clinically same No angina or ADHF Chronic 2/10 B/L chest wall pain: reproducible Objective - Vital Signs/Intake and Output Vital Signs (last 24 hours): Temp Pulse Resp BP Pulse Ox 97.6 F 70 20 161/69 H 100 10/25/17 07:10 10/25/17 07:10 10/25/17 07:10 10/25/17 07:10 10/25/17 07:10 Intake and Output: 10/25/17 10/25/17 06:59 18:59 Intake Total 200 Output Total 0 Balance 200 - Medications Medications: Current Medications Albuterol/Ipratropium (Duoneb 3 Mg/0.5 Mg (3 Ml) Ud) 3 ml IH RQ4 [facility] Last Admin: 10/25/17 07:43 Dose: Not Given Amiodarone HCl (Cordarone) 200 mg PO DAILY [facility] Last Admin: 10/25/17 10:47 Dose: 200 mg Amlodipine Besylate (Norvasc) 10 mg PO DAILY [facility] Last Admin: 10/24/17 10:20 Dose: 10 mg Aspirin (Aspirin Chewable) 81 mg PO DAILY [facility] Last Admin: 10/25/17 10:48 Dose: 81 mg Calcium Carbonate (Oscal) 500 mg PO BID [facility] Last Admin: 10/25/17 10:48 Dose: 500 mg Carvedilol (Coreg) 25 mg PO BID [facility] Last Admin: 10/24/17 20:29 Dose: 25 mg Clonidine HCl (Catapres-Tts3 0.3 Mg/24 Hr) 1 patch TD Q7D@1000 [facility] Docusate Sodium (Colace) 100 mg PO TID [facility] Last Admin: 10/25/17 10:51 Dose: Not Given Epoetin Tom (Procrit) 4,000 unit IV TTS [facility] Ergocalciferol (Drisdol 50,000 Intl Units Cap) 1 cap PO Q7D [facility] Last Admin: 10/23/17 23:35 Dose: 1 cap Heparin Sodium (Porcine) (Heparin) 3,700 units IVP TTS [facility] Stop: 10/29/17 10:01 Last Admin: 10/24/17 15:46 Dose: 3,700 units Heparin Sodium (Porcine) (Heparin) 5,000 units SC Q12 [facility] Last Admin: 10/25/17 10:50 Dose: Not Given Hydralazine HCl (Apresoline) 50 mg PO TID [facility] Last Admin: 10/25/17 10:48 Dose: 50 mg Hydromorphone HCl (Dilaudid) 1 mg IVP Q4H PRN PRN Reason: Pain, moderate (4-7) Last Admin: 10/25/17 07:09 Dose: 1 mg Insulin Aspart (Novolog) 0 unit SC ACHS [facility] PRN Reason: Protocol Last Admin: 10/25/17 08:57 Dose: 3 unit Insulin Glargine (Lantus) 10 unit SC HS [facility] Last Admin: 10/24/17 21:50 Dose: 10 unit Isosorbide Mononitrate (Imdur) 60 mg PO DAILY [facility] Last Admin: 10/25/17 10:48 Dose: 60 mg Lactulose (Enulose) 30 gm PO DAILY [facility] Last Admin: 10/25/17 10:50 Dose: Not Given Levetiracetam (Keppra) 500 mg PO BID [facility] Last Admin: 10/25/17 10:48 Dose: 500 mg Montelukast Sodium (Singulair) 10 mg PO DAILY [facility] Last Admin: 10/25/17 10:47 Dose: 10 mg Pantoprazole Sodium (Protonix Ec Tab) 40 mg PO DAILY [facility] Last Admin: 10/25/17 10:49 Dose: 40 mg Ranolazine (Ranexa) 500 mg PO BID [facility] Last Admin: 10/25/17 10:48 Dose: 500 mg Rosuvastatin Calcium (Crestor) 10 mg PO HS [facility] Last Admin: 10/24/17 21:50 Dose: 10 mg Sertraline HCl (Zoloft) 50 mg PO DAILY [facility] Last Admin: 10/25/17 10:49 Dose: 50 mg Valproate Sodium (Depakene Oral Soln) 250 mg PO QID [facility] Last Admin: 10/25/17 10:49 Dose: 250 mg Vitamin B Complex/Vit C/Folic Acid (Nephro-Courtney) 1 tab PO 0800 [facility] Last Admin: 10/25/17 08:57 Dose: 1 tab - Labs Labs: 10/23/17 21:56 10/23/17 22:08 PT 11.8 SECONDS (9.7-12.2) 10/23/17 22:08 INR 1.1 10/23/17 22:08 APTT 33 SECONDS (21-34) 10/23/17 22:08 - Constitutional Appears: Chronically Ill - Head Exam Head Exam: ATRAUMATIC, NORMOCEPHALIC - Eye Exam Eye Exam: absent: Normal appearance - ENT Exam ENT Exam: Mucous Membranes Moist - Neck Exam Neck Exam: Full ROM, Normal Inspection - Cardiovascular Exam Cardiovascular Exam: REGULAR RHYTHM, +S1, +S2, Murmur. absent: Gallop - GI/Abdominal Exam GI & Abdominal Exam: Soft. absent: Tenderness - Extremities Exam Extremities Exam: absent: Joint Swelling, Pedal Edema - Neurological Exam Neurological Exam: Alert, Awake Assessment and Plan - Assessment and Plan (Free Text) Assessment: 37 y/o with transgender phenotype > DM brittle poorly controlled and hx of non-compliance > HTN is chronic and stable; with hx of non-compliance and sporadic lability > ESRD on HD with hx of non-compliance and missed sessions > PVD s/p bilateral BKA due to recurrent infections and progressive gangrene and non-healing ulcers > Legally blind Coronary artery disease s/p CABG and subsequent PCI all grafts are closed > He remains with preserved LV function and advanced diastolic dysfunction despite diffuse small vessel CAD (too small for PCI) > Recurrent anemia and GI bleed in past and present: deemed not a good candidate for DAPT > cont ASA if tolerated > EKG: Alutter, chronic LVH with strain ---> Now in NSR with chronic LVH strain pattern. > Troponin 0.2 > 2.9 > 4.2 : this is c/w with tachycardia, chronic CHF/ diastolic dysfunction and ESRD on top of demand ischemia from chronic non- revascularizable CAD and anemia. > Medical therapy remains his most important and sole treatment option at this stage of chronic CAD. He unfortunately is not a candidate for any surgical or percutaneous therapy. He has had hx of atrial catheter related thrombus in past ---> he was challenged with AC on many occasions but due to GI bleed deemed unsafe.. He has known documented hx of parx AFLUTTER/AFIB > Continue Amiodarone HCl (Cordarone) 200 mg PO DAILY [facility] Amlodipine Besylate (Norvasc) 10 mg PO DAILY [facility] Last Admin: 10/24/17 10:20 Dose: 10 mg Aspirin (Aspirin Chewable) 81 mg PO DAILY [facility] Last Admin: 10/24/17 10:19 Dose: 81 mg Carvedilol (Coreg) 25 mg PO BID [facility] Last Admin: 10/24/17 10:19 Dose: 25 mg Clonidine HCl (Catapres-Tts3 0.3 Mg/24 Hr) 1 patch TD Q7D@1000 [facility] Isosorbide Mononitrate (Imdur) 60 mg PO DAILY [facility] Rosuvastatin Calcium (Crestor) 10 mg PO HS [facility] -----------> Titrate these meds as tolerated to achieve optimal BP and HR control. (<120/80 and HR <65). * He has had hx of atrial catheter related thrombus in past ---> he was challenged with AC on many occasions but due to GI bleed deemed unsafe * he has known documented hx of parx AFLUTTER/AFIB Cont HD to maintain volume status added hydralazine 50 TID: BP is improved Added ranexa 500 BID F/U troponin trend
--- NOTE | 2017-10-25 13:21 | CARD ---
APPROVED REPORT EKG Measurement Heart [id number] <Conclusion> Normal sinus rhythm Left ventricular hypertrophy with repolarization abnormality Possible Inferior infarct, age undetermined Abnormal ECG
[2017-10-25] MEDS: (Lantus) Insulin Glargine, Recombinant SC SCH (21:56)
[2017-10-26] MEDS: Albuterol-Ipratrop 3 mg / 0.5 (3 ml) UD IH SCH ×5 (00:20→20:44)
[2017-10-26] MEDS ORDERED: Dextrose 50% SYRINGE Inj (50 ml) IV STA (07:23)
[2017-10-26] MEDS: (Novolog) Insulin Aspart, Recombinant 100 u/ml 10 ml vial SC SCH ×4 (07:30→22:41)
[2017-10-26] MEDS ORDERED: Dextrose 50% VIAL Inj (50 ml) IV ONE (07:33)
[2017-10-26] MEDS: Multivitamin Vitamin B Complex (Nephro-Vite) Tab PO SCH (08:40)
[2017-10-26] MEDS ORDERED: EPOETIN ALFA 4,000 UNIT/ML ML Dialysis IV SCH ×3 (10:00→16:30)
--- NOTE | 2017-10-26 10:39 | CP.PCM.PN ---
Subjective - Date & Time of Evaluation Date of Evaluation: 10/26/17 Time of Evaluation: 10:36 - Subjective Subjective: pt has chest pain palpitation sob and vonited twice today has hypoglyceamia early this morning Objective - Vital Signs/Intake and Output Vital Signs (last 24 hours): Temp Pulse Resp BP Pulse Ox 97.4 F L 68 20 100/88 100 10/26/17 09:09 10/26/17 09:09 10/26/17 09:09 10/26/17 09:09 10/26/17 09:09 - Medications Medications: Current Medications Albuterol/Ipratropium (Duoneb 3 Mg/0.5 Mg (3 Ml) Ud) 3 ml IH RQ4 [facility] Last Admin: 10/26/17 07:44 Dose: 3 ml Amiodarone HCl (Cordarone) 200 mg PO DAILY [facility] Last Admin: 10/25/17 10:47 Dose: 200 mg Amlodipine Besylate (Norvasc) 10 mg PO DAILY [facility] Last Admin: 10/25/17 12:42 Dose: 10 mg Aspirin (Aspirin Chewable) 81 mg PO DAILY [facility] Last Admin: 10/25/17 10:48 Dose: 81 mg Calcium Carbonate (Oscal) 500 mg PO BID [facility] Last Admin: 10/25/17 18:13 Dose: 500 mg Carvedilol (Coreg) 25 mg PO BID [facility] Last Admin: 10/25/17 18:19 Dose: 25 mg Clonidine HCl (Catapres-Tts3 0.3 Mg/24 Hr) 1 patch TD Q7D@1000 [facility] Docusate Sodium (Colace) 100 mg PO TID [facility] Last Admin: 10/25/17 18:28 Dose: Not Given Epoetin Tom (Procrit) 8,000 unit IV TTS [facility] Ergocalciferol (Drisdol 50,000 Intl Units Cap) 1 cap PO Q7D [facility] Last Admin: 10/23/17 23:35 Dose: 1 cap Heparin Sodium (Porcine) (Heparin) 3,700 units IVP TTS [facility] Stop: 10/29/17 10:01 Last Admin: 10/24/17 15:46 Dose: 3,700 units Heparin Sodium (Porcine) (Heparin) 5,000 units SC Q12 [facility] Last Admin: 10/25/17 21:55 Dose: 5,000 units Hydralazine HCl (Apresoline) 50 mg PO TID [facility] Last Admin: 10/25/17 18:13 Dose: 50 mg Hydromorphone HCl (Dilaudid) 1 mg IVP Q4H PRN PRN Reason: Pain, moderate (4-7) Last Admin: 10/26/17 07:30 Dose: 1 mg Insulin Aspart (Novolog) 0 unit SC ACHS [facility] PRN Reason: Protocol Last Admin: 10/26/17 07:30 Dose: Not Given Isosorbide Mononitrate (Imdur) 60 mg PO DAILY [facility] Last Admin: 10/25/17 10:48 Dose: 60 mg Lactulose (Enulose) 30 gm PO DAILY [facility] Last Admin: 10/25/17 10:50 Dose: Not Given Levetiracetam (Keppra) 500 mg PO BID [facility] Last Admin: 10/25/17 18:13 Dose: 500 mg Montelukast Sodium (Singulair) 10 mg PO [facility] Ondansetron HCl (Zofran Inj) 4 mg IVP Q6H PRN PRN Reason: Nausea/Vomiting Pantoprazole Sodium (Protonix Ec Tab) 40 mg PO DAILY [facility] Last Admin: 10/25/17 10:49 Dose: 40 mg Ranolazine (Ranexa) 500 mg PO BID [facility] Last Admin: 10/25/17 18:13 Dose: 500 mg Rosuvastatin Calcium (Crestor) 10 mg PO HS [facility] Last Admin: 10/25/17 21:55 Dose: 10 mg Sertraline HCl (Zoloft) 50 mg PO DAILY [facility] Last Admin: 10/25/17 10:49 Dose: 50 mg Valproate Sodium (Depakene Oral Soln) 250 mg PO QID [facility] Last Admin: 10/25/17 22:50 Dose: 250 mg Vitamin B Complex/Vit C/Folic Acid (Nephro-Courtney) 1 tab PO 0800 [facility] Last Admin: 10/26/17 08:40 Dose: 1 tab - Labs Labs: 10/23/17 21:56 10/23/17 22:08 PT 11.8 SECONDS (9.7-12.2) 10/23/17 22:08 INR 1.1 10/23/17 22:08 APTT 33 SECONDS (21-34) 10/23/17 22:08 - Constitutional Appears: In Acute Distress - Head Exam Head Exam: ATRAUMATIC - Eye Exam Eye Exam: Conjunctival injection - ENT Exam ENT Exam: Mucous Membranes Moist - Neck Exam Neck Exam: Full ROM - Respiratory Exam Respiratory Exam: Decreased Breath Sounds - Cardiovascular Exam Cardiovascular Exam: Tachycardia - GI/Abdominal Exam GI & Abdominal Exam: Normal Bowel Sounds - Back Exam Back Exam: CVA tenderness (L) - Neurological Exam Neurological Exam: Alert, Awake - Psychiatric Exam Psychiatric exam: Normal Affect - Skin Skin Exam: Pallor Assessment and Plan - Assessment and Plan (Free Text) Assessment: ac svt ac ischemia cad ESRF HYPOGLYCEAMIA VOMITING Plan: PER ORDERS
[2017-10-26] MEDS: Ranolazine 500 mg Extended Release Tablets PO SCH ×2 (10:42→21:20)
[2017-10-26] MEDS: Pantoprazole 40 mg EC Tab PO SCH (10:42)
[2017-10-26] MEDS: Valproic Acid 250 mg/5 ml UD Cup PO SCH ×4 (10:44→21:47)
--- NOTE | 2017-10-26 14:02 | CP.PCM.CON ---
Past Patient History - Infectious Disease Hx of Infectious Diseases: None - Tetanus Immunizations Tetanus Immunization: >10 years Ago - Past Medical History & Family History Past Medical History?: Yes - Past Social History Smoking Status: Former Smoker - CARDIAC Hx Atrial Fibrillation: Yes Hx Cardia Arrhythmia: Yes Hx Congestive Heart Failure: Yes Hx Hypercholesterolemia: Yes Hx Hypertension: Yes - PULMONARY Hx Asthma: Yes Hx Bronchitis: Yes Hx Chronic Obstructive Pulmonary Disease (COPD): Yes Hx Pneumonia: Yes - NEUROLOGICAL Hx Alzheimer's Disease: Yes Hx Seizures: Yes - HEENT Hx HEENT Problems: Yes Hx Blind: Yes (legally blind) Hx Cataracts: Yes - RENAL Hx Chronic Kidney Disease: Yes Date of Last Dialysis Treatment: 10/24/17 - ENDOCRINE/METABOLIC Hx Hyperthyroidism: No Hx Hypothyroidism: Yes - HEMATOLOGICAL/ONCOLOGICAL Hx Anemia: Yes - INTEGUMENTARY Hx Dermatological Problems: No - MUSCULOSKELETAL/RHEUMATOLOGICAL Hx Arthritis: Yes Hx Falls: No - GASTROINTESTINAL Hx Gall Bladder Disease: Yes Hx Gastritis: Yes - GENITOURINARY/GYNECOLOGICAL Hx Sexually Transmitted Disorders: No - PSYCHIATRIC Hx Anxiety: Yes Hx Depression: Yes Hx Substance Use: No - SURGICAL HISTORY Hx Cholecystectomy: Yes (2011) 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/2009) Hx Coronary Stent: Yes - ANESTHESIA Hx Anesthesia: Yes Hx Anesthesia Reactions: No Hx Malignant Hyperthermia: No Meds Allergies/Adverse Reactions: Allergies Allergy/AdvReac Type Severity Reaction Status Date / Time acetaminophen [From Percocet] Allergy RASH Verified 10/23/17 00:59 atenolol Allergy RASH Verified 10/17/17 16:32 digoxin Allergy RASH Verified 10/23/17 00:59 milk Allergy ITCHING Verified 10/17/17 16:32 morphine Allergy RASH Verified 10/23/17 00:59 oxycodone HCl [From Percocet] Allergy RASH Verified 10/23/17 00:59 - Medications Medications: Current Medications Albuterol/Ipratropium (Duoneb 3 Mg/0.5 Mg (3 Ml) Ud) 3 ml IH RQ4 [facility] Last Admin: 10/26/17 12:58 Dose: 3 ml Amiodarone HCl (Cordarone) 200 mg PO DAILY [facility] Last Admin: 10/26/17 10:44 Dose: Not Given Amlodipine Besylate (Norvasc) 10 mg PO DAILY [facility] Last Admin: 10/26/17 10:43 Dose: Not Given Aspirin (Aspirin Chewable) 81 mg PO DAILY [facility] Last Admin: 10/26/17 10:44 Dose: Not Given Calcium Carbonate (Oscal) 500 mg PO BID [facility] Last Admin: 10/26/17 10:43 Dose: Not Given Carvedilol (Coreg) 25 mg PO BID [facility] Last Admin: 10/26/17 10:44 Dose: Not Given Clonidine HCl (Catapres-Tts3 0.3 Mg/24 Hr) 1 patch TD Q7D@1000 [facility] Docusate Sodium (Colace) 100 mg PO TID [facility] Last Admin: 10/26/17 10:44 Dose: Not Given Epoetin Tom (Procrit) 8,000 unit IV TTS [facility] Ergocalciferol (Drisdol 50,000 Intl Units Cap) 1 cap PO Q7D [facility] Last Admin: 10/23/17 23:35 Dose: 1 cap Heparin Sodium (Porcine) (Heparin) 3,700 units IVP TTS [facility] Stop: 10/29/17 10:01 Last Admin: 10/24/17 15:46 Dose: 3,700 units Heparin Sodium (Porcine) (Heparin) 5,000 units SC Q12 [facility] Last Admin: 10/26/17 10:43 Dose: Not Given Hydralazine HCl (Apresoline) 50 mg PO TID [facility] Last Admin: 10/26/17 10:44 Dose: Not Given Hydromorphone HCl (Dilaudid) 1 mg IVP Q4H PRN PRN Reason: Pain, moderate (4-7) Last Admin: 10/26/17 12:30 Dose: 1 mg Insulin Aspart (Novolog) 0 unit SC ACHS [facility] PRN Reason: Protocol Last Admin: 10/26/17 07:30 Dose: Not Given Isosorbide Mononitrate (Imdur) 60 mg PO DAILY [facility] Last Admin: 10/26/17 10:43 Dose: Not Given Lactulose (Enulose) 30 gm PO DAILY [facility] Last Admin: 10/26/17 10:43 Dose: Not Given Levetiracetam (Keppra) 500 mg PO BID [facility] Last Admin: 10/26/17 10:43 Dose: Not Given Montelukast Sodium (Singulair) 10 mg PO HS [facility] Ondansetron HCl (Zofran Inj) 4 mg IVP Q6H PRN PRN Reason: Nausea/Vomiting Last Admin: 10/26/17 10:39 Dose: 4 mg Pantoprazole Sodium (Protonix Ec Tab) 40 mg PO DAILY [facility] Last Admin: 10/26/17 10:42 Dose: Not Given Ranolazine (Ranexa) 500 mg PO BID [facility] Last Admin: 10/26/17 10:42 Dose: Not Given Rosuvastatin Calcium (Crestor) 10 mg PO HS [facility] Last Admin: 10/25/17 21:55 Dose: 10 mg Sertraline HCl (Zoloft) 50 mg PO DAILY [facility] Last Admin: 10/26/17 10:42 Dose: Not Given Valproate Sodium (Depakene Oral Soln) 250 mg PO QID [facility] Last Admin: 10/26/17 10:44 Dose: Not Given Vitamin B Complex/Vit C/Folic Acid (Nephro-Courtney) 1 tab PO 0800 [facility] Last Admin: 10/26/17 08:40 Dose: 1 tab Physical Exam - Constitutional Appears: Chronically Ill - Respiratory Exam Respiratory Exam: Clear to Auscultation Bilateral, NORMAL BREATHING PATTERN - Cardiovascular Exam Cardiovascular Exam: REGULAR RHYTHM, RRR, +S1, +S2, +S4. absent: JVD Additional comments: Bilateral BKA, +permcath - GI/Abdominal Exam GI & Abdominal Exam: Normal Bowel Sounds. absent: Organomegaly Results - Vital Signs Recent Vital Signs: Last Vital Signs Temp 97.4 F L 10/26/17 09:09 Pulse 68 10/26/17 09:09 Resp 20 10/26/17 09:09 BP 100/88 10/26/17 09:09 Pulse Ox 100 10/26/17 09:09 - Labs Result Diagrams: 10/26/17 15:07 10/26/17 15:07 Labs: Laboratory Results - last 24 hr 10/25/17 10/25/17 10/25/17 16:45 19:34 21:27 POC Glucose (mg/dL) 201 H 294 H Troponin I 2.2600 H* 10/26/17 10/26/17 10/26/17 02:24 06:35 06:36 POC Glucose (mg/dL) 128 H 60 L 61 L Troponin I 10/26/17 10/26/17 10/26/17 07:19 07:20 07:59 POC Glucose (mg/dL) 61 L 59 L 120 H Troponin I 10/26/17 10/26/17 10/26/17 11:21 11:22 11:54 POC Glucose (mg/dL) 64 L 59 L 89 Troponin I Assessment & Plan - Assessment and Plan (Free Text) Plan: 37 y/o with transgender phenotype > DM brittle poorly controlled and hx of non-compliance > HTN is chronic and stable; with hx of non-compliance and sporadic lability > ESRD on HD with hx of non-compliance and missed sessions > PVD s/p bilateral BKA due to recurrent infections and progressive gangrene and non-healing ulcers > Legally blind Coronary artery disease s/p CABG and subsequent PCI all grafts are closed > He remains with preserved LV function and advanced diastolic dysfunction despite diffuse small vessel CAD (too small for PCI) > Recurrent anemia and GI bleed in past and present: deemed not a good candidate for DAPT > cont ASA if tolerated > EKG: Lachelletter, chronic LVH with strain ---> Now in NSR with chronic LVH strain pattern. > Troponin 0.2 > 2.9 > 4.2 : this is c/w with tachycardia, chronic CHF/ diastolic dysfunction and ESRD on top of demand ischemia from chronic non- revascularizable CAD and anemia. > Medical therapy remains his most important and sole treatment option at this stage of chronic CAD. He unfortunately is not a candidate for any surgical or percutaneous therapy. He has had hx of atrial catheter related thrombus in past ---> he was challenged with AC on many occasions but due to GI bleed deemed unsafe.. He has known documented hx of parx AFLUTTER/AFIB > Continue Amiodarone HCl (Cordarone) 200 mg PO DAILY [facility] Amlodipine Besylate (Norvasc) 10 mg PO DAILY [facility] Last Admin: 10/24/17 10:20 Dose: 10 mg Aspirin (Aspirin Chewable) 81 mg PO DAILY [facility] Last Admin: 10/24/17 10:19 Dose: 81 mg Carvedilol (Coreg) 25 mg PO BID [facility] Last Admin: 10/24/17 10:19 Dose: 25 mg Clonidine HCl (Catapres-Tts3 0.3 Mg/24 Hr) 1 patch TD Q7D@1000 [facility] Isosorbide Mononitrate (Imdur) 60 mg PO DAILY [facility] Rosuvastatin Calcium (Crestor) 10 mg PO [facility] -----------> Titrate these meds as tolerated to achieve optimal BP and HR control. (<120/80 and HR <65). * He has had hx of atrial catheter related thrombus in past ---> he was challenged with AC on many occasions but due to GI bleed deemed unsafe * he has known documented hx of parx AFLUTTER/AFIB Cont HD to maintain volume status added hydralazine 50 TID: BP is improved Added ranexa 500 BID F/U troponin trend
[2017-10-26 15:10] LABS: BASO % 0.5 % (0.0-2.0); EOS # 0.2 K/uL (0.0-0.7); EOS % 2.9 % (0.0-4.0); HEMOGLOBIN 7.3 g/dL (12.0-18.0); LYMPH # 1.8 K/uL (1.0-4.3); LYMPH % 25.1 % (20.0-40.0); MEAN CORPUSCULAR HEMOGLOBIN 32.5 pg (27.0-31.0); MEAN CORPUSCULAR HGB CONC 33.9 g/dL (33.0-37.0); MEAN PLATELET VOLUME 9.2 fL (7.2-11.7); MONO # 0.6 K/uL (0.0-0.8); MONO % 8.3 % (0.0-10.0); NEUT # 4.6 K/uL (1.8-7.0); NEUT % 63.2 % (50.0-75.0); RBC 2.25 Mil/uL (4.40-5.90); RED CELL DISTRIBUTION WIDTH 16.3 % (11.5-14.5); WHITE BLOOD COUNT 7.3 K/uL (4.8-10.8)
[2017-10-26 15:22] LABS: CALCIUM 7.6 mg/dl (8.6-10.4)
[2017-10-26] MEDS ORDERED: Epoetin Alfa 10,000 unit/ml Dialysis IV SCH (16:22)
--- NOTE | 2017-10-26 18:45 | CP.PCM.PN ---
Subjective - Date & Time of Evaluation Date of Evaluation: 10/26/17 Time of Evaluation: 15:00 - Subjective Subjective: renal follow up note S: seen on hd no new complaints bp low Assessment: Stable chronic chest pain, dyspnea, A flutter Diabetic chronic Kidney Disease (E11.22) Hypertensive Chronic Kidney Disease (I12.0) End stage renal disease (N18.6) dependence on hemodialysis (Z99.2) (TTS) via AVF Anemia (D64.9), Hyperphosphatemia (E83.39), Secondary Hyperparathyroidism (E21.1 ), HTN (I12.0) CAD s/p CABG, diastolic CHF, parox A flutter/fib, intra-cardiac thrombus, hx of Heparin induced thrombocytopenia, hx of seizure, blindness Plan: hd tts today, seen and examined on hd PRBC as needed for anemia. plan for Epogen with HD, i increased dose to 12K with hd Continue with phos binders home dose BP control with meds. cards on board for chest pain Physical Examination: General Appearance: Comfortable, in no acute respiratory distress, Head; Atraumatic, normocephalic ENT: no ulcers no thrush. Tongue is midline. Oropharynx: no rash or ulcers. EYES: Pt is blind both eyes Neck; supple no lymphadenopathy Lungs: Normal respiratory rate/effort. Breath sounds bilateral equal clear with few basal crackles Heart: Normal rate. s1s2 normal. No rub or gallop. Extremities: no edema. No varicose veins. has b/l BKA Neurological: Patient is alert, awake and oriented to person, place and time. No focal deficit. Strength bilateral appropriate and equal Skin: Warm and dry. Normal turgor. No rash. Palpitation: Normal elasticity for age Abdomen: Abdomen is soft. Bowel sounds +. There is no abdominal tenderness, no guarding/rigidity or organomegaly Psych: limited insight and has normal affect/mood MSK: no joint tenderness or swelling. Access: permacath Objective - Vital Signs/Intake and Output Vital Signs (last 24 hours): Temp Pulse Resp BP Pulse Ox 97.2 F L 69 18 143/71 100 10/26/17 18:15 10/26/17 18:15 10/26/17 18:15 10/26/17 18:15 10/26/17 18:15 - Medications Medications: Current Medications Albuterol/Ipratropium (Duoneb 3 Mg/0.5 Mg (3 Ml) Ud) 3 ml IH RQ4 [facility] Last Admin: 10/26/17 16:41 Dose: Not Given Amiodarone HCl (Cordarone) 200 mg PO DAILY [facility] Last Admin: 10/26/17 10:44 Dose: Not Given Amlodipine Besylate (Norvasc) 10 mg PO DAILY [facility] Last Admin: 10/26/17 10:43 Dose: Not Given Aspirin (Aspirin Chewable) 81 mg PO DAILY [facility] Last Admin: 10/26/17 10:44 Dose: Not Given Calcium Carbonate (Oscal) 500 mg PO BID [facility] Last Admin: 10/26/17 10:43 Dose: Not Given Carvedilol (Coreg) 25 mg PO BID [facility] Last Admin: 10/26/17 10:44 Dose: Not Given Clonidine HCl (Catapres-Tts3 0.3 Mg/24 Hr) 1 patch TD Q7D@1000 [facility] Docusate Sodium (Colace) 100 mg PO TID [facility] Last Admin: 10/26/17 14:31 Dose: Not Given Epoetin Tom (Procrit) 12,000 unit IV TTS [facility] Last Admin: 10/26/17 16:37 Dose: 12,000 unit Ergocalciferol (Drisdol 50,000 Intl Units Cap) 1 cap PO Q7D [facility] Last Admin: 10/23/17 23:35 Dose: 1 cap Heparin Sodium (Porcine) (Heparin) 3,700 units IVP TTS [facility] Stop: 10/29/17 10:01 Last Admin: 10/26/17 17:22 Dose: 3,700 units Heparin Sodium (Porcine) (Heparin) 5,000 units SC Q12 [facility] Last Admin: 10/26/17 10:43 Dose: Not Given Hydralazine HCl (Apresoline) 50 mg PO TID [facility] Last Admin: 10/26/17 14:31 Dose: Not Given Hydromorphone HCl (Dilaudid) 1 mg IVP Q4H PRN PRN Reason: Pain, moderate (4-7) Last Admin: 10/26/17 16:52 Dose: 1 mg Insulin Aspart (Novolog) 0 unit SC ACHS [facility] PRN Reason: Protocol Last Admin: 10/26/17 11:30 Dose: Not Given Isosorbide Mononitrate (Imdur) 60 mg PO DAILY [facility] Last Admin: 10/26/17 10:43 Dose: Not Given Lactulose (Enulose) 30 gm PO DAILY [facility] Last Admin: 10/26/17 10:43 Dose: Not Given Levetiracetam (Keppra) 500 mg PO BID [facility] Last Admin: 10/26/17 10:43 Dose: Not Given Montelukast Sodium (Singulair) 10 mg PO HS [facility] Ondansetron HCl (Zofran Inj) 4 mg IVP Q6H PRN PRN Reason: Nausea/Vomiting Last Admin: 10/26/17 10:39 Dose: 4 mg Pantoprazole Sodium (Protonix Ec Tab) 40 mg PO DAILY [facility] Last Admin: 10/26/17 10:42 Dose: Not Given Ranolazine (Ranexa) 500 mg PO BID [facility] Last Admin: 10/26/17 10:42 Dose: Not Given Rosuvastatin Calcium (Crestor) 10 mg PO HS [facility] Last Admin: 10/25/17 21:55 Dose: 10 mg Sertraline HCl (Zoloft) 50 mg PO DAILY [facility] Last Admin: 10/26/17 10:42 Dose: Not Given Valproate Sodium (Depakene Oral Soln) 250 mg PO QID [facility] Last Admin: 10/26/17 14:30 Dose: Not Given Vitamin B Complex/Vit C/Folic Acid (Nephro-Courtney) 1 tab PO 0800 [facility] Last Admin: 10/26/17 08:40 Dose: 1 tab - Labs Labs: 10/26/17 15:07 10/26/17 15:07 PT 11.8 SECONDS (9.7-12.2) 10/23/17 22:08 INR 1.1 10/23/17 22:08 APTT 33 SECONDS (21-34) 10/23/17 22:08
[2017-10-27] MEDS: Albuterol-Ipratrop 3 mg / 0.5 (3 ml) UD IH SCH ×6 (00:03→20:04)
--- NOTE | 2017-10-27 08:11 | CP.PCM.PN ---
Subjective - Date & Time of Evaluation Date of Evaluation: 10/27/17 Time of Evaluation: 08:10 - Subjective Subjective: Events reviewed Objective - Vital Signs/Intake and Output Vital Signs (last 24 hours): Temp Pulse Resp BP Pulse Ox 98.1 F 70 20 114/67 99 10/26/17 23:40 10/26/17 23:40 10/26/17 23:40 10/26/17 23:40 10/26/17 23:40 Intake and Output: 10/27/17 10/27/17 06:59 18:59 Intake Total 500 Balance 500 - Medications Medications: Current Medications Albuterol/Ipratropium (Duoneb 3 Mg/0.5 Mg (3 Ml) Ud) 3 ml IH RQ4 [facility] Last Admin: 10/27/17 07:20 Dose: 3 ml Amiodarone HCl (Cordarone) 200 mg PO DAILY [facility] Last Admin: 10/26/17 10:44 Dose: Not Given Amlodipine Besylate (Norvasc) 10 mg PO DAILY [facility] Last Admin: 10/26/17 10:43 Dose: Not Given Aspirin (Aspirin Chewable) 81 mg PO DAILY [facility] Last Admin: 10/26/17 10:44 Dose: Not Given Calcium Carbonate (Oscal) 500 mg PO BID [facility] Last Admin: 10/26/17 21:20 Dose: 500 mg Carvedilol (Coreg) 25 mg PO BID [facility] Last Admin: 10/26/17 21:20 Dose: 25 mg Clonidine HCl (Catapres-Tts3 0.3 Mg/24 Hr) 1 patch TD Q7D@1000 [facility] Docusate Sodium (Colace) 100 mg PO TID [facility] Last Admin: 10/26/17 21:11 Dose: Not Given Epoetin Tom (Procrit) 12,000 unit IV TTS [facility] Last Admin: 10/26/17 16:37 Dose: 12,000 unit Ergocalciferol (Drisdol 50,000 Intl Units Cap) 1 cap PO Q7D [facility] Last Admin: 10/23/17 23:35 Dose: 1 cap Heparin Sodium (Porcine) (Heparin) 3,700 units IVP TTS [facility] Stop: 10/29/17 10:01 Last Admin: 10/26/17 17:22 Dose: 3,700 units Heparin Sodium (Porcine) (Heparin) 5,000 units SC Q12 [facility] Last Admin: 10/26/17 21:47 Dose: 5,000 units Hydralazine HCl (Apresoline) 50 mg PO TID [facility] Last Admin: 10/26/17 21:20 Dose: 50 mg Hydromorphone HCl (Dilaudid) 1 mg IVP Q4H PRN PRN Reason: Pain, moderate (4-7) Last Admin: 10/27/17 05:31 Dose: 1 mg Insulin Aspart (Novolog) 0 unit SC ACHS [facility] PRN Reason: Protocol Last Admin: 10/26/17 22:41 Dose: Not Given Isosorbide Mononitrate (Imdur) 60 mg PO DAILY [facility] Last Admin: 10/26/17 10:43 Dose: Not Given Lactulose (Enulose) 30 gm PO DAILY [facility] Last Admin: 10/26/17 10:43 Dose: Not Given Levetiracetam (Keppra) 500 mg PO BID [facility] Last Admin: 10/26/17 21:20 Dose: 500 mg Montelukast Sodium (Singulair) 10 mg PO HS [facility] Last Admin: 10/26/17 21:20 Dose: 10 mg Ondansetron HCl (Zofran Inj) 4 mg IVP Q6H PRN PRN Reason: Nausea/Vomiting Last Admin: 10/26/17 10:39 Dose: 4 mg Pantoprazole Sodium (Protonix Ec Tab) 40 mg PO DAILY [facility] Last Admin: 10/26/17 10:42 Dose: Not Given Ranolazine (Ranexa) 500 mg PO BID [facility] Last Admin: 10/26/17 21:20 Dose: 500 mg Rosuvastatin Calcium (Crestor) 10 mg PO HS [facility] Last Admin: 10/26/17 21:20 Dose: 10 mg Sertraline HCl (Zoloft) 50 mg PO DAILY [facility] Last Admin: 10/26/17 10:42 Dose: Not Given Valproate Sodium (Depakene Oral Soln) 250 mg PO QID [facility] Last Admin: 10/26/17 21:47 Dose: 250 mg Vitamin B Complex/Vit C/Folic Acid (Nephro-Courtney) 1 tab PO 0800 [facility] Last Admin: 10/26/17 08:40 Dose: 1 tab - Labs Labs: 10/26/17 15:07 10/26/17 15:07 PT 11.8 SECONDS (9.7-12.2) 10/23/17 22:08 INR 1.1 10/23/17 22:08 APTT 33 SECONDS (21-34) 10/23/17 22:08 - Constitutional Appears: Chronically Ill - Eye Exam Eye Exam: PERRL. absent: Scleral icterus - Cardiovascular Exam Cardiovascular Exam: REGULAR RHYTHM, RRR, +S1, +S2, +S4, Murmur. absent: JVD Additional comments: +Permacath; Bilateral BKA - GI/Abdominal Exam GI & Abdominal Exam: Normal Bowel Sounds. absent: Organomegaly Assessment and Plan - Assessment and Plan (Free Text) Assessment: 37 y/o with transgender phenotype > DM brittle poorly controlled and hx of non-compliance > HTN is chronic and stable; with hx of non-compliance and sporadic lability > ESRD on HD with hx of non-compliance and missed sessions > PVD s/p bilateral BKA due to recurrent infections and progressive gangrene and non-healing ulcers > Legally blind Coronary artery disease s/p CABG and subsequent PCI all grafts are closed > He remains with preserved LV function and advanced diastolic dysfunction despite diffuse small vessel CAD (too small for PCI) > Recurrent anemia and GI bleed in past and present: deemed not a good candidate for DAPT > cont ASA if tolerated > EKG: Alutter, chronic LVH with strain ---> Now in NSR with chronic LVH strain pattern. > Troponin 0.2 > 2.9 > 4.2 : this is c/w with tachycardia, chronic CHF/ diastolic dysfunction and ESRD on top of demand ischemia from chronic non- revascularizable CAD and anemia. > Medical therapy remains his most important and sole treatment option at this stage of chronic CAD. He unfortunately is not a candidate for any surgical or percutaneous therapy. He has had hx of atrial catheter related thrombus in past ---> he was challenged with AC on many occasions but due to GI bleed deemed unsafe.. He has known documented hx of parx AFLUTTER/AFIB > Continue Amiodarone HCl (Cordarone) 200 mg PO DAILY [facility] Amlodipine Besylate (Norvasc) 10 mg PO DAILY [facility] Last Admin: 10/24/17 10:20 Dose: 10 mg Aspirin (Aspirin Chewable) 81 mg PO DAILY [facility] Last Admin: 10/24/17 10:19 Dose: 81 mg Carvedilol (Coreg) 25 mg PO BID [facility] Last Admin: 10/24/17 10:19 Dose: 25 mg Clonidine HCl (Catapres-Tts3 0.3 Mg/24 Hr) 1 patch TD Q7D@1000 [facility] Isosorbide Mononitrate (Imdur) 60 mg PO DAILY [facility] Rosuvastatin Calcium (Crestor) 10 mg PO HS [facility] -----------> Titrate these meds as tolerated to achieve optimal BP and HR control. (<120/80 and HR <65). * He has had hx of atrial catheter related thrombus in past ---> he was challenged with AC on many occasions but due to GI bleed deemed unsafe * he has known documented hx of parx AFLUTTER/AFIB Cont HD to maintain volume status added hydralazine 50 TID: BP is improved Added ranexa 500 BID F/U troponin trend
[2017-10-27] MEDS: (Novolog) Insulin Aspart, Recombinant 100 u/ml 10 ml vial SC SCH ×4 (08:25→21:47)
[2017-10-27] MEDS: Pantoprazole 40 mg EC Tab PO SCH (09:51)
[2017-10-27] MEDS: Ranolazine 500 mg Extended Release Tablets PO SCH ×2 (09:51→17:26)
[2017-10-27] MEDS: Valproic Acid 250 mg/5 ml UD Cup PO SCH ×4 (09:52→21:58)
[2017-10-27] MEDS: Multivitamin Vitamin B Complex (Nephro-Vite) Tab PO SCH (09:52)
--- NOTE | 2017-10-27 10:38 | CP.PCM.PN ---
Subjective - Date & Time of Evaluation Date of Evaluation: 10/27/17 Time of Evaluation: 10:36 - Subjective Subjective: less chest pain has nausea abd pain Objective - Vital Signs/Intake and Output Vital Signs (last 24 hours): Temp Pulse Resp BP Pulse Ox 97.9 F 71 20 114/71 100 10/27/17 09:34 10/27/17 09:34 10/27/17 09:34 10/27/17 09:54 10/27/17 09:34 Intake and Output: 10/27/17 10/27/17 06:59 18:59 Intake Total 500 Balance 500 - Medications Medications: Current Medications Albuterol/Ipratropium (Duoneb 3 Mg/0.5 Mg (3 Ml) Ud) 3 ml IH RQ4 [facility] Last Admin: 10/27/17 07:20 Dose: 3 ml Amiodarone HCl (Cordarone) 200 mg PO DAILY [facility] Last Admin: 10/27/17 09:41 Dose: 200 mg Amlodipine Besylate (Norvasc) 10 mg PO DAILY [facility] Last Admin: 10/27/17 09:51 Dose: 10 mg Aspirin (Aspirin Chewable) 81 mg PO DAILY [facility] Last Admin: 10/27/17 09:53 Dose: 81 mg Calcium Carbonate (Oscal) 500 mg PO BID [facility] Last Admin: 10/27/17 09:41 Dose: 500 mg Carvedilol (Coreg) 25 mg PO BID [facility] Last Admin: 10/27/17 09:54 Dose: 25 mg Clonidine HCl (Catapres-Tts3 0.3 Mg/24 Hr) 1 patch TD Q7D@1000 [facility] Docusate Sodium (Colace) 100 mg PO TID [facility] Last Admin: 10/27/17 09:41 Dose: 100 mg Epoetin Tom (Procrit) 12,000 unit IV TTS [facility] Last Admin: 10/26/17 16:37 Dose: 12,000 unit Ergocalciferol (Drisdol 50,000 Intl Units Cap) 1 cap PO Q7D [facility] Last Admin: 10/23/17 23:35 Dose: 1 cap Heparin Sodium (Porcine) (Heparin) 3,700 units IVP TTS [facility] Stop: 10/29/17 10:01 Last Admin: 10/26/17 17:22 Dose: 3,700 units Heparin Sodium (Porcine) (Heparin) 5,000 units SC Q12 [facility] Last Admin: 10/27/17 09:42 Dose: 5,000 units Hydralazine HCl (Apresoline) 50 mg PO TID [facility] Last Admin: 10/27/17 09:41 Dose: 50 mg Hydromorphone HCl (Dilaudid) 1 mg IVP Q4H PRN PRN Reason: Pain, moderate (4-7) Last Admin: 10/27/17 09:42 Dose: 1 mg Insulin Aspart (Novolog) 0 unit SC ACHS [facility] PRN Reason: Protocol Last Admin: 10/27/17 08:25 Dose: Not Given Isosorbide Mononitrate (Imdur) 60 mg PO DAILY [facility] Last Admin: 10/27/17 09:41 Dose: 60 mg Lactulose (Enulose) 30 gm PO DAILY [facility] Last Admin: 10/26/17 10:43 Dose: Not Given Levetiracetam (Keppra) 500 mg PO BID [facility] Last Admin: 10/27/17 09:41 Dose: 500 mg Montelukast Sodium (Singulair) 10 mg PO HS [facility] Last Admin: 10/26/17 21:20 Dose: 10 mg Ondansetron HCl (Zofran Inj) 4 mg IVP Q6H PRN PRN Reason: Nausea/Vomiting Last Admin: 10/26/17 10:39 Dose: 4 mg Pantoprazole Sodium (Protonix Ec Tab) 40 mg PO DAILY [facility] Last Admin: 10/27/17 09:51 Dose: 40 mg Ranolazine (Ranexa) 500 mg PO BID [facility] Last Admin: 10/27/17 09:51 Dose: 500 mg Rosuvastatin Calcium (Crestor) 10 mg PO HS [facility] Last Admin: 10/26/17 21:20 Dose: 10 mg Sertraline HCl (Zoloft) 50 mg PO DAILY [facility] Last Admin: 10/27/17 09:48 Dose: 50 mg Valproate Sodium (Depakene Oral Soln) 250 mg PO QID [facility] Last Admin: 10/27/17 09:52 Dose: 250 mg Vitamin B Complex/Vit C/Folic Acid (Nephro-Courtney) 1 tab PO 0800 [facility] Last Admin: 10/27/17 09:52 Dose: 1 tab - Labs Labs: 10/26/17 15:07 10/26/17 15:07 PT 11.8 SECONDS (9.7-12.2) 10/23/17 22:08 INR 1.1 10/23/17 22:08 APTT 33 SECONDS (21-34) 10/23/17 22:08 - Constitutional Appears: Non-toxic - Eye Exam Eye Exam: Conjunctival injection - ENT Exam ENT Exam: Mucous Membranes Dry - Neck Exam Neck Exam: Full ROM - Respiratory Exam Respiratory Exam: Decreased Breath Sounds - Cardiovascular Exam Cardiovascular Exam: REGULAR RHYTHM - GI/Abdominal Exam GI & Abdominal Exam: Normal Bowel Sounds - Back Exam Back Exam: NORMAL INSPECTION - Neurological Exam Neurological Exam: Alert, Awake, Oriented x3 - Psychiatric Exam Psychiatric exam: Normal Affect - Skin Skin Exam: Pallor Assessment and Plan - Assessment and Plan (Free Text) Assessment: ac chest pain ac ex chf esrf dm abd pain c arrythmia improved Plan: as per orders
[2017-10-28 02:07] VITALS: RESP 20
[2017-10-28] MEDS: Albuterol-Ipratrop 3 mg / 0.5 (3 ml) UD IH SCH ×6 (02:58→20:35)
[2017-10-28] MEDS: (Novolog) Insulin Aspart, Recombinant 100 u/ml 10 ml vial SC SCH ×3 (08:17→17:21)
[2017-10-28] MEDS: Multivitamin Vitamin B Complex (Nephro-Vite) Tab PO SCH (08:33)
[2017-10-28 08:50] LABS: BASO % 0.4 % (0.0-2.0); EOS # 0.4 K/uL (0.0-0.7); HEMOGLOBIN 8.5 g/dL (12.0-18.0); LYMPH # 2.6 K/uL (1.0-4.3); LYMPH % 25.8 % (20.0-40.0); MEAN CELL VOLUME 96.2 fL (80.0-94.0); MEAN CORPUSCULAR HEMOGLOBIN 32.5 pg (27.0-31.0); MEAN CORPUSCULAR HGB CONC 33.8 g/dL (33.0-37.0); MEAN PLATELET VOLUME 9.4 fL (7.2-11.7); MONO % 9.8 % (0.0-10.0); RBC 2.6 Mil/uL (4.40-5.90)
[2017-10-28 09:03] LABS: CALCIUM 9.3 mg/dl (8.6-10.4)
--- NOTE | 2017-10-28 09:57 | CP.PCM.PN ---
Subjective - Date & Time of Evaluation Date of Evaluation: 10/28/17 Time of Evaluation: 09:56 - Subjective Subjective: No CP or SOB No fevers or chills Cough: clear sputum Objective - Vital Signs/Intake and Output Vital Signs (last 24 hours): Temp Pulse Resp BP Pulse Ox 98.0 F 66 20 101/67 95 10/28/17 02:03 10/28/17 08:27 10/28/17 02:03 10/28/17 02:40 10/28/17 02:03 Intake and Output: 10/28/17 10/28/17 06:59 18:59 Intake Total 100 Balance 100 - Medications Medications: Current Medications Albuterol/Ipratropium (Duoneb 3 Mg/0.5 Mg (3 Ml) Ud) 3 ml IH RQ4 [facility] Last Admin: 10/28/17 07:13 Dose: Not Given Amiodarone HCl (Cordarone) 200 mg PO DAILY [facility] Last Admin: 10/27/17 09:41 Dose: 200 mg Amlodipine Besylate (Norvasc) 10 mg PO DAILY [facility] Last Admin: 10/27/17 09:51 Dose: 10 mg Aspirin (Aspirin Chewable) 81 mg PO DAILY [facility] Last Admin: 10/27/17 09:53 Dose: 81 mg Calcium Carbonate (Oscal) 500 mg PO BID [facility] Last Admin: 10/27/17 17:26 Dose: 500 mg Carvedilol (Coreg) 25 mg PO BID [facility] Last Admin: 10/27/17 17:26 Dose: 25 mg Clonidine HCl (Catapres-Tts3 0.3 Mg/24 Hr) 1 patch TD Q7D@1000 [facility] Docusate Sodium (Colace) 100 mg PO TID [facility] Last Admin: 10/27/17 17:26 Dose: 100 mg Epoetin Tom (Procrit) 12,000 unit IV TTS [facility] Last Admin: 10/26/17 16:37 Dose: 12,000 unit Ergocalciferol (Drisdol 50,000 Intl Units Cap) 1 cap PO Q7D [facility] Last Admin: 10/23/17 23:35 Dose: 1 cap Heparin Sodium (Porcine) (Heparin) 3,700 units IVP TTS [facility] Stop: 10/29/17 10:01 Last Admin: 10/26/17 17:22 Dose: 3,700 units Hydralazine HCl (Apresoline) 50 mg PO TID [facility] Last Admin: 10/27/17 17:26 Dose: 50 mg Hydromorphone HCl (Dilaudid) 1 mg IVP Q4H PRN PRN Reason: Pain, moderate (4-7) Last Admin: 10/28/17 09:45 Dose: 1 mg Insulin Aspart (Novolog) 0 unit SC ACHS [facility] PRN Reason: Protocol Last Admin: 10/28/17 08:17 Dose: Not Given Isosorbide Mononitrate (Imdur) 60 mg PO DAILY [facility] Last Admin: 10/27/17 09:41 Dose: 60 mg Lactulose (Enulose) 30 gm PO DAILY [facility] Last Admin: 10/27/17 12:15 Dose: Not Given Levetiracetam (Keppra) 500 mg PO BID [facility] Last Admin: 10/27/17 17:30 Dose: 500 mg Montelukast Sodium (Singulair) 10 [address] [facility] Last Admin: 10/27/17 21:58 Dose: 10 mg Ondansetron HCl (Zofran Inj) 4 mg IVP Q6H PRN PRN Reason: Nausea/Vomiting Last Admin: 10/26/17 10:39 Dose: 4 mg Pantoprazole Sodium (Protonix Ec Tab) 40 mg PO DAILY [facility] Last Admin: 10/27/17 09:51 Dose: 40 mg Ranolazine (Ranexa) 500 mg PO BID [facility] Last Admin: 10/27/17 17:26 Dose: 500 mg Rosuvastatin Calcium (Crestor) 10 mg [address] [facility] Last Admin: 10/27/17 21:58 Dose: 10 mg Sertraline HCl (Zoloft) 50 mg PO DAILY [facility] Last Admin: 10/27/17 09:48 Dose: 50 mg Valproate Sodium (Depakene Oral Soln) 250 mg PO QID [facility] Last Admin: 10/27/17 21:58 Dose: 250 mg Vitamin B Complex/Vit C/Folic Acid (Nephro-Courtney) 1 tab PO 0800 [facility] Last Admin: 10/27/17 09:52 Dose: 1 tab - Labs Labs: 10/28/17 08:40 10/28/17 08:40 PT 11.8 SECONDS (9.7-12.2) 10/23/17 22:08 INR 1.1 10/23/17 22:08 APTT 33 SECONDS (21-34) 10/23/17 22:08 - Constitutional Appears: No Acute Distress - Head Exam Head Exam: ATRAUMATIC, NORMOCEPHALIC - Cardiovascular Exam Cardiovascular Exam: REGULAR RHYTHM, +S1, +S2, Murmur. absent: Gallop - GI/Abdominal Exam GI & Abdominal Exam: Soft. absent: Tenderness - Neurological Exam Neurological Exam: Alert, Awake, Oriented x3 Assessment and Plan - Assessment and Plan (Free Text) Assessment: 37 y/o with transgender phenotype > DM brittle poorly controlled and hx of non-compliance > HTN is chronic and stable; with hx of non-compliance and sporadic lability > ESRD on HD with hx of non-compliance and missed sessions > PVD s/p bilateral BKA due to recurrent infections and progressive gangrene and non-healing ulcers > Legally blind Coronary artery disease s/p CABG and subsequent PCI all grafts are closed > He remains with preserved LV function and advanced diastolic dysfunction despite diffuse small vessel CAD (too small for PCI) > Recurrent anemia and GI bleed in past and present: deemed not a good candidate for DAPT > cont ASA if tolerated > EKG: Alutter, chronic LVH with strain ---> Now in NSR with chronic LVH strain pattern. > Troponin 0.2 > 2.9 > 4.2 2.2 : this is c/w with tachycardia, chronic CHF/ diastolic dysfunction and ESRD on top of demand ischemia from chronic non- revascularizable CAD and anemia. > Medical therapy remains his most important and sole treatment option at this stage of chronic CAD. He unfortunately is not a candidate for any surgical or percutaneous therapy. He has had hx of atrial catheter related thrombus in past ---> he was challenged with AC on many occasions but due to GI bleed deemed unsafe.. He has known documented hx of parx AFLUTTER/AFIB > Continue Amiodarone HCl (Cordarone) 200 mg PO DAILY [facility] Amlodipine Besylate (Norvasc) 10 mg PO DAILY [facility] Last Admin: 10/24/17 10:20 Dose: 10 mg Aspirin (Aspirin Chewable) 81 mg PO DAILY [facility] Last Admin: 10/24/17 10:19 Dose: 81 mg Carvedilol (Coreg) 25 mg PO BID [facility] Last Admin: 10/24/17 10:19 Dose: 25 mg Clonidine HCl (Catapres-Tts3 0.3 Mg/24 Hr) 1 patch TD Q7D@1000 [facility] Isosorbide Mononitrate (Imdur) 60 mg PO DAILY [facility] Rosuvastatin Calcium (Crestor) 10 mg PO HS [facility] -----------> Titrate these meds as tolerated to achieve optimal BP and HR control. (<120/80 and HR <65). * He has had hx of atrial catheter related thrombus in past ---> he was challenged with AC on many occasions but due to GI bleed deemed unsafe * he has known documented hx of parx AFLUTTER/AFIB Cont HD to maintain volume status added hydralazine 50 TID: BP is improved Added ranexa 500 BID d/c planning per cardiac standpoint: meds reviewed and optimal.
[2017-10-28] MEDS: Valproic Acid 250 mg/5 ml UD Cup PO SCH ×5 (10:27→18:12)
[2017-10-28] MEDS: Pantoprazole 40 mg EC Tab PO SCH (10:28)
[2017-10-28] MEDS: Ranolazine 500 mg Extended Release Tablets PO SCH ×3 (10:29→18:12)
[2017-10-28] MEDS ORDERED: HYDROmorphone 1 mg/ml ISec IVP PRN (12:00)
--- NOTE | 2017-10-28 13:34 | CP.PCM.PN ---
Subjective - Date & Time of Evaluation Date of Evaluation: 10/28/17 Time of Evaluation: 13:34 - Subjective Subjective: -FOLLOW UP WITH DR. BELL IN HER OFFICE WITHIN 5-7 DAYS OF DISCHARGE---CALL THE OFFICE TOMORROW TO MAKE AN APPT. -FOLLOW UP WITH DR. DONALDSON IN HIS OFFICE WITHIN 7-10 DAYS OF DISCHARGE---CALL THE OFFICE TOMORROW TO MAKE AN APPT. -CONTINUE ALL OF YOUR MEDICATIONS AT HOME USUAL. -NEW PRESCRIPTION SENT TO YOUR PHARMACY PER DR. DONALDSON'S RECOMMENDATION: 1) RANEXA 500 MG BY MOUTH TWICE A DAY (MORNING AND EVENING). THIS MEDICINE IS FOR YOUR CHRONIC CHEST PAIN. -CONTINUE YOUR DIALYSIS USUAL. DO NOT MISS ANY DIALYSIS SESSIONS. -IF YOU HAVE ANY FURTHER CONCERNS OR QUESTIONS, CONTACT DR. BELL'S OFFICE. Objective - Vital Signs/Intake and Output Vital Signs (last 24 hours): Temp Pulse Resp BP Pulse Ox 98.0 F 66 20 110/67 95 10/28/17 02:03 10/28/17 08:27 10/28/17 02:03 10/28/17 10:28 10/28/17 02:03 Intake and Output: 10/28/17 10/28/17 06:59 18:59 Intake Total 100 Balance 100 - Medications Medications: Current Medications Albuterol/Ipratropium (Duoneb 3 Mg/0.5 Mg (3 Ml) Ud) 3 ml IH RQ4 [facility] Last Admin: 10/28/17 11:04 Dose: Not Given Amiodarone HCl (Cordarone) 200 mg PO DAILY [facility] Last Admin: 10/28/17 10:29 Dose: 200 mg Amlodipine Besylate (Norvasc) 10 mg PO DAILY [facility] Last Admin: 10/28/17 10:27 Dose: 10 mg Aspirin (Aspirin Chewable) 81 mg PO DAILY [facility] Last Admin: 10/28/17 10:28 Dose: 81 mg Calcium Carbonate (Oscal) 500 mg PO BID [facility] Last Admin: 10/28/17 10:28 Dose: 500 mg Carvedilol (Coreg) 25 mg PO BID [facility] Last Admin: 10/28/17 10:28 Dose: 25 mg Clonidine HCl (Catapres-Tts3 0.3 Mg/24 Hr) 1 patch TD Q7D@1000 [facility] Docusate Sodium (Colace) 100 mg PO TID [facility] Last Admin: 10/28/17 10:27 Dose: 100 mg Epoetin Tom (Procrit) 12,000 unit IV TTS [facility] Last Admin: 10/26/17 16:37 Dose: 12,000 unit Ergocalciferol (Drisdol 50,000 Intl Units Cap) 1 cap PO Q7D [facility] Last Admin: 10/23/17 23:35 Dose: 1 cap Heparin Sodium (Porcine) (Heparin) 3,700 units IVP TTS [facility] Stop: 10/29/17 10:01 Last Admin: 10/26/17 17:22 Dose: 3,700 units Hydralazine HCl (Apresoline) 50 mg PO TID [facility] Last Admin: 10/28/17 10:27 Dose: 50 mg Hydromorphone HCl (Dilaudid) 1 mg IVP Q4H PRN PRN Reason: Pain, moderate (4-7) Insulin Aspart (Novolog) 0 unit SC ACHS [facility] PRN Reason: Protocol Last Admin: 10/28/17 08:17 Dose: Not Given Isosorbide Mononitrate (Imdur) 60 mg PO DAILY [facility] Last Admin: 10/28/17 10:28 Dose: 60 mg Lactulose (Enulose) 30 gm PO DAILY [facility] Last Admin: 10/27/17 12:15 Dose: Not Given Levetiracetam (Keppra) 500 mg PO BID [facility] Last Admin: 10/28/17 10:28 Dose: 500 mg Montelukast Sodium (Singulair) 10 mg PO [facility] Last Admin: 10/27/17 21:58 Dose: 10 mg Ondansetron HCl (Zofran Inj) 4 mg IVP Q6H PRN PRN Reason: Nausea/Vomiting Last Admin: 10/28/17 10:30 Dose: 4 mg Pantoprazole Sodium (Protonix Ec Tab) 40 mg PO DAILY [facility] Last Admin: 10/28/17 10:28 Dose: 40 mg Ranolazine (Ranexa) 500 mg PO BID [facility] Last Admin: 10/28/17 10:29 Dose: 500 mg Rosuvastatin Calcium (Crestor) 10 mg PO [facility] Last Admin: 10/27/17 21:58 Dose: 10 mg Sertraline HCl (Zoloft) 50 mg PO DAILY [facility] Last Admin: 10/28/17 10:28 Dose: 50 mg Valproate Sodium (Depakene Oral Soln) 250 mg PO QID [facility] Last Admin: 10/28/17 10:27 Dose: 250 mg Vitamin B Complex/Vit C/Folic Acid (Nephro-Courtney) 1 tab PO 0800 [facility] Last Admin: 10/28/17 08:33 Dose: 1 tab - Labs Labs: 10/28/17 08:40 10/28/17 08:40 PT 11.8 SECONDS (9.7-12.2) 10/23/17 22:08 INR 1.1 10/23/17 22:08 APTT 33 SECONDS (21-34) 10/23/17 22:08
--- NOTE | 2017-10-28 14:55 | CP.PCM.PN ---
Subjective - Date & Time of Evaluation Date of Evaluation: 10/28/17 Time of Evaluation: 14:54 - Subjective Subjective: Nephrology Consultation: Assessment: Stable chronic chest pain, dyspnoea, A flutter Diabetic chronic Kidney Disease (E11.22) Hypertensive Chronic Kidney Disease (I12.0) End stage renal disease (N18.6) dependence on hemodialysis (Z99.2) (TTS) via AVF Anemia (D64.9), Hyperphosphatemia (E83.39), Secondary Hyperparathyroidism (E21.1 ), HTN (I12.0) CAD s/p CABG, diastolic CHF, parox A flutter/fib, intra-cardiac thrombus, hx of Heparin induced thrombocytopenia, hx of seizure, blindness Plan: Will plan for dialysis tomorrow. Continue with Nephrovite 1 tab/day. PRBC as needed for anemia. plan for Epogen with HD as increased dose. last Hb 8.5 Continue with phos binders home dose BP control with meds as ordered. ? compliance to meds at home since BP usually high when pt comes initially but gets under much better controlled while in hospital. Glycemic control, Dialysis consistent diet Further work up/management as per primary team Dose meds/antibiotics (if needed) for ESRD status. Avoid fleets enema/magnesium based laxatives. cardiology following Thanks for allowing me to participate in care of your patient. Will follow patient with you. Please call if any Qs Dr Eric Temple Office: [phone] HPI: Pt is a 37 y/o transgender with hx of ESRD on hemodialysis (TTS) via permacath, chronic anemia, hyperphosphatemia, secondary hyperparathyroidism, Diabetes Mellitus, hypertension, CAD s/p CABG, diastolic CHF, pA flutter/fib, intra-cardiac thrombus, Heparin induced thrombocytopenia in past presented with complaints of acute on chronic chest pain. pt with frequent and multiple hospitalizations for same. also c/o palpitations and SOB c/o chronic chest pain, denies palpitation, c/o chronic shortness of breath ROS: All other negative except as in HPI. feels better now. chest pain better. SOB better. resolved palpitations Physical Examination: General Appearance: Comfortable, in no acute respiratory distress, co-operative . Vitals reviewed and noted as below Head; Atraumatic, normocephalic ENT: no ulcers no thrush. Tongue is midline. Oropharynx: no rash or ulcers. EYES: Pt is blind both eyes Neck; supple no lymphadenopathy, no thyromegaly or bruit Lungs: Normal respiratory rate/effort. Breath sounds bilateral equal clear with few basal crackles Heart: Normal rate. s1s2 normal. No rub or gallop. Extremities: no edema. No varicose veins. has b/l BKA Neurological: Patient is alert, awake and oriented to person, place and time. No focal deficit. Strength bilateral appropriate and equal Skin: Warm and dry. Normal turgor. No rash. Palpitation: Normal elasticity for age Abdomen: Abdomen is soft. Bowel sounds +. There is no abdominal tenderness, no guarding/rigidity or organomegaly Psych: limited insight and has normal affect/mood MSK: no joint tenderness or swelling. Digits and nails normal, no deformity : kidney or bladder not palpable Access: permacath Labs/imaging reviewed. Past medical history, past surgical history, family history, social history, allergy reviewed and noted as below Family Hx: no hx of CKD. Non contributory Objective - Vital Signs/Intake and Output Vital Signs (last 24 hours): Temp Pulse Resp BP Pulse Ox 97.9 F 66 20 110/67 100 10/28/17 07:00 10/28/17 08:27 10/28/17 07:00 10/28/17 10:28 10/28/17 07:00 Intake and Output: 10/28/17 10/28/17 06:59 18:59 Intake Total 100 Balance 100 - Medications Medications: Current Medications Albuterol/Ipratropium (Duoneb 3 Mg/0.5 Mg (3 Ml) Ud) 3 ml IH RQ4 [facility] Last Admin: 10/28/17 11:04 Dose: Not Given Amiodarone HCl (Cordarone) 200 mg PO DAILY [facility] Last Admin: 10/28/17 10:29 Dose: 200 mg Amlodipine Besylate (Norvasc) 10 mg PO DAILY [facility] Last Admin: 10/28/17 10:27 Dose: 10 mg Aspirin (Aspirin Chewable) 81 mg PO DAILY [facility] Last Admin: 10/28/17 10:28 Dose: 81 mg Calcium Carbonate (Oscal) 500 mg PO BID [facility] Last Admin: 10/28/17 10:28 Dose: 500 mg Carvedilol (Coreg) 25 mg PO BID [facility] Last Admin: 10/28/17 10:28 Dose: 25 mg Clonidine HCl (Catapres-Tts3 0.3 Mg/24 Hr) 1 patch TD Q7D@1000 [facility] Docusate Sodium (Colace) 100 mg PO TID [facility] Last Admin: 10/28/17 14:18 Dose: Not Given Epoetin Tom (Procrit) 12,000 unit IV TTS [facility] Last Admin: 10/26/17 16:37 Dose: 12,000 unit Ergocalciferol (Drisdol 50,000 Intl Units Cap) 1 cap PO Q7D [facility] Last Admin: 10/23/17 23:35 Dose: 1 cap Heparin Sodium (Porcine) (Heparin) 3,700 units IVP TTS [facility] Stop: 10/29/17 10:01 Last Admin: 10/26/17 17:22 Dose: 3,700 units Hydralazine HCl (Apresoline) 50 mg PO TID [facility] Last Admin: 10/28/17 14:18 Dose: Not Given Hydromorphone HCl (Dilaudid) 1 mg IVP Q4H PRN PRN Reason: Pain, moderate (4-7) Insulin Aspart (Novolog) 0 unit SC ACHS [facility] PRN Reason: Protocol Last Admin: 10/28/17 13:50 Dose: Not Given Isosorbide Mononitrate (Imdur) 60 mg PO DAILY [facility] Last Admin: 10/28/17 10:28 Dose: 60 mg Lactulose (Enulose) 30 gm PO DAILY [facility] Last Admin: 10/28/17 10:27 Dose: Not Given Levetiracetam (Keppra) 500 mg PO BID [facility] Last Admin: 10/28/17 10:28 Dose: 500 mg Montelukast Sodium (Singulair) 10 mg PO HS [facility] Last Admin: 10/27/17 21:58 Dose: 10 mg Ondansetron HCl (Zofran Inj) 4 mg IVP Q6H PRN PRN Reason: Nausea/Vomiting Last Admin: 10/28/17 10:30 Dose: 4 mg Pantoprazole Sodium (Protonix Ec Tab) 40 mg PO DAILY [facility] Last Admin: 10/28/17 10:28 Dose: 40 mg Ranolazine (Ranexa) 500 mg PO BID [facility] Last Admin: 02/26/18 10:29 Dose: 500 mg Rosuvastatin Calcium (Crestor) 10 mg PO HS [facility] Last Admin: 10/27/17 21:58 Dose: 10 mg Sertraline HCl (Zoloft) 50 mg PO DAILY [facility] Last Admin: 10/28/17 10:28 Dose: 50 mg Valproate Sodium (Depakene Oral Soln) 250 mg PO QID [facility] Last Admin: 10/28/17 14:18 Dose: Not Given Vitamin B Complex/Vit C/Folic Acid (Nephro-Courtney) 1 tab PO 0800 [facility] Last Admin: 10/28/17 08:33 Dose: 1 tab - Labs Labs: 10/28/17 08:40 10/28/17 08:40 PT 11.8 SECONDS (9.7-12.2) 10/23/17 22:08 INR 1.1 10/23/17 22:08 APTT 33 SECONDS (21-34) 10/23/17 22:08
[2017-10-28 16:35] VITALS: TEMP 98
--- NOTE | 2017-10-28 17:40 | CP.PCM.PN ---
Subjective - Date & Time of Evaluation Date of Evaluation: 10/28/17 Time of Evaluation: 17:37 - Subjective Subjective: sleepy Objective - Vital Signs/Intake and Output Vital Signs (last 24 hours): Temp Pulse Resp BP Pulse Ox 98.0 F 70 20 87/41 L 95 10/28/17 16:34 10/28/17 16:34 10/28/17 16:34 10/28/17 16:34 10/28/17 16:34 Intake and Output: 10/28/17 10/28/17 06:59 18:59 Intake Total 100 300 Balance 100 300 - Medications Medications: Current Medications Albuterol/Ipratropium (Duoneb 3 Mg/0.5 Mg (3 Ml) Ud) 3 ml IH RQ4 [facility] Last Admin: 10/28/17 16:05 Dose: 3 ml Amiodarone HCl (Cordarone) 200 mg PO DAILY [facility] Last Admin: 10/28/17 10:29 Dose: 200 mg Amlodipine Besylate (Norvasc) 10 mg PO DAILY [facility] Last Admin: 10/28/17 10:27 Dose: 10 mg Aspirin (Aspirin Chewable) 81 mg PO DAILY [facility] Last Admin: 10/28/17 10:28 Dose: 81 mg Calcium Carbonate (Oscal) 500 mg PO BID [facility] Last Admin: 10/28/17 10:28 Dose: 500 mg Carvedilol (Coreg) 25 mg PO BID [facility] Last Admin: 10/28/17 10:28 Dose: 25 mg Clonidine HCl (Catapres-Tts3 0.3 Mg/24 Hr) 1 patch TD Q7D@1000 [facility] Docusate Sodium (Colace) 100 mg PO TID [facility] Last Admin: 10/28/17 14:18 Dose: Not Given Epoetin Tom (Procrit) 12,000 unit IV TTS [facility] Last Admin: 10/26/17 16:37 Dose: 12,000 unit Ergocalciferol (Drisdol 50,000 Intl Units Cap) 1 cap PO Q7D [facility] Last Admin: 10/23/17 23:35 Dose: 1 cap Heparin Sodium (Porcine) (Heparin) 3,700 units IVP TTS [facility] Stop: 10/29/17 10:01 Last Admin: 10/26/17 17:22 Dose: 3,700 units Hydralazine HCl (Apresoline) 50 mg PO TID [facility] Last Admin: 10/28/17 14:18 Dose: Not Given Hydromorphone HCl (Dilaudid) 1 mg IVP Q4H PRN PRN Reason: Pain, moderate (4-7) Insulin Aspart (Novolog) 0 unit SC ACHS [facility] PRN Reason: Protocol Last Admin: 10/28/17 17:21 Dose: 2 unit Isosorbide Mononitrate (Imdur) 60 mg PO DAILY [facility] Last Admin: 10/28/17 10:28 Dose: 60 mg Lactulose (Enulose) 30 gm PO DAILY [facility] Last Admin: 10/28/17 10:27 Dose: Not Given Levetiracetam (Keppra) 500 mg PO BID [facility] Last Admin: 10/28/17 10:28 Dose: 500 mg Montelukast Sodium (Singulair) 10 mg PO [facility] Last Admin: 10/27/17 21:58 Dose: 10 mg Ondansetron HCl (Zofran Inj) 4 mg IVP Q6H PRN PRN Reason: Nausea/Vomiting Last Admin: 10/28/17 10:30 Dose: 4 mg Pantoprazole Sodium (Protonix Ec Tab) 40 mg PO DAILY [facility] Last Admin: 10/28/17 10:28 Dose: 40 mg Ranolazine (Ranexa) 500 mg PO BID [facility] Last Admin: 10/28/17 10:29 Dose: 500 mg Rosuvastatin Calcium (Crestor) 10 mg PO HS [facility] Last Admin: 10/27/17 21:58 Dose: 10 mg Sertraline HCl (Zoloft) 50 mg PO DAILY [facility] Last Admin: 10/28/17 10:28 Dose: 50 mg Valproate Sodium (Depakene Oral Soln) 250 mg PO QID [facility] Last Admin: 10/28/17 14:18 Dose: Not Given Vitamin B Complex/Vit C/Folic Acid (Nephro-Courtney) 1 tab PO 0800 [facility] Last Admin: 10/28/17 08:33 Dose: 1 tab - Labs Labs: 10/28/17 08:40 10/28/17 08:40 PT 11.8 SECONDS (9.7-12.2) 10/23/17 22:08 INR 1.1 10/23/17 22:08 APTT 33 SECONDS (21-34) 10/23/17 22:08 - Constitutional Appears: Non-toxic - Head Exam Head Exam: ATRAUMATIC, NORMAL INSPECTION - Eye Exam Eye Exam: Conjunctival injection - ENT Exam ENT Exam: Mucous Membranes Moist - Respiratory Exam Respiratory Exam: Accessory Muscle Use - Cardiovascular Exam Cardiovascular Exam: REGULAR RHYTHM - GI/Abdominal Exam GI & Abdominal Exam: Normal Bowel Sounds - Extremities Exam Extremities Exam: Normal Inspection - Back Exam Back Exam: NORMAL INSPECTION - Neurological Exam Neurological Exam: Oriented x3 - Skin Skin Exam: Cyanosis Assessment and Plan - Assessment and Plan (Free Text) Assessment: s/p chest pain cardiac arrythmia chf dm esrf juaaner Plan: may discharge for dialysis in am
[2017-10-28 18:07] VITALS: BP 102/46; PULSE 65; O2SAT 100
== END 2017-10-28 20:29 | disposition home or self-care (01) | DRG 121 ==
LOC: C.ER 19:27 → C.9E 22:39 → C.5S 10-24 20:13
PROVIDERS: ADMIT Internal Medicine; ATTEND Internal Medicine
PROC: 5A1D70Z Performance of Urinary Filtration, Intermittent, Less than 6 Hours Per Day (ICD-10-PCS; principal; 2017-10-24)
PROC: 5A1D70Z Performance of Urinary Filtration, Intermittent, Less than 6 Hours Per Day (ICD-10-PCS; 2017-10-26)
DX: I21.4 Non-ST elevation (NSTEMI) myocardial infarction (principal); I13.2 Hypertensive heart and chronic kidney disease with heart failure and with stage 5 chronic kidney disease, or end stage renal disease; E11.22 Type 2 diabetes mellitus with diabetic chronic kidney disease; E11.51 Type 2 diabetes mellitus with diabetic peripheral angiopathy without gangrene; I48.92 Unspecified atrial flutter; I47.1 Supraventricular tachycardia; I50.32 Chronic diastolic (congestive) heart failure; N18.6 End stage renal disease; E03.9 Hypothyroidism, unspecified; E11.65 Type 2 diabetes mellitus with hyperglycemia; E83.39 Other disorders of phosphorus metabolism; F02.80 Dementia in other diseases classified elsewhere, unspecified severity, without behavioral disturbance, psychotic disturbance, mood disturbance, and anxiety; G30.9 Alzheimer's disease, unspecified; G89.29 Other chronic pain; H54.8 Legal blindness, as defined in USA; I25.10 Atherosclerotic heart disease of native coronary artery without angina pectoris; I51.3 Intracardiac thrombosis, not elsewhere classified; N25.81 Secondary hyperparathyroidism of renal origin; Z86.73 Personal history of transient ischemic attack (TIA), and cerebral infarction without residual deficits; Z87.01 Personal history of pneumonia (recurrent); Z87.891 Personal history of nicotine dependence; Z89.511 Acquired absence of right leg below knee; Z89.512 Acquired absence of left leg below knee; Z91.14 Patient's other noncompliance with medication regimen; Z95.1 Presence of aortocoronary bypass graft; Z99.2 Dependence on renal dialysis; D64.9 Anemia, unspecified

== ENCOUNTER 2017-10-30 20:41 | Observation (INO) | payer OTHER ==
[2017-10-30 20:42] VITALS: PULSE 66; BMI 18.8
--- NOTE | 2017-10-30 21:24 | C.PDOC ---
History Of Present Illness 37 y/o male with history of ESRD on dialysis presents to the ER complaining of palpitations and pain in the left side of his chest. Patient reports that the pain radiates up his neck and down to his left arm. Patient reports that he took Nitroglycerin which provided no relief. Patient notes that his sister called his dialysis nurse who recommended that he go to the ER. Time Seen by Provider: 10/30/17 21:07 Chief Complaint (Nursing): Palpitations History Per: Patient History/Exam Limitations: no limitations Onset/Duration Of Symptoms: Hrs Current Symptoms Are (Timing): Still Present Severity: Moderate Past Medical History Reviewed: Historical Data, Nursing Documentation, Vital Signs Vital Signs: Last Vital Signs Temp 98.2 F 10/30/17 20:46 Pulse 61 10/30/17 21:54 Resp 20 10/30/17 20:46 BP 150/76 10/30/17 20:46 Pulse Ox 98 10/30/17 21:27 - Medical History PMH: Alzheimer's Disease, Anemia, Anxiety, Arthritis, Asthma, Atrial Fibrillation, Bronchitis, CAD, Cardia Arrhythmia, CHF, COPD, CVA, Depression, Diabetes, Deep Vein Thrombosis, Gastritis, Gastrointestinal Ulcer, Gall Bladder Disease, HTN, Hypercholesterolemia, Hypothyroidism, Pneumonia, End Stage Renal Disease, Chronic Kidney Disease, Seizures Denies: Hyperthyroidism, Sexually Transmitted Disease Surgical History: CABG (12/2009), Cholecystectomy (2011), Coronary Stent - [facility] (10/23/17) ABDOMINAL WALL SINOGRAM (12/31/13) C.A.T. SCAN OF ABDOMEN (10/31/13) CENTRAL VENOUS CATHETER PLACEMENT WITH GUIDANCE (02/10/15) CHANGE OTHER DEVICE IN TRUNK SUBCU/FASCIA, BEDSPREAD CUTTER APPROACH (06/01/17) DILATE R ANT TIB ART W DRUG-ELUT INTRALUM, PERC (08/12/15) DILATION OF LEFT FEMORAL ARTERY, PERCUTANEOUS APPROACH (07/04/16) DILATION OF RIGHT FEMORAL ARTERY, PERCUTANEOUS APPROACH (08/12/15) DILATION OF RIGHT POPLITEAL ARTERY, PERCUTANEOUS APPROACH (08/12/15) DX ULTRASOUND-HEART (01/05/13) ENTERAL INFUSION OF CONCENTRATED NUT. SUBSTANCES (06/28/13) EXCIS DEBRIDE OF WOUND, INFECT, OR BURN (08/03/14) EXCISION OF STOMACH, ENDO, DIAGN (03/03/17) EXTIRPATION OF MATTER FROM L FEM ART, PERC APPROACH (07/04/16) EXTIRPATION OF MATTER FROM R FEM ART, PERC APPROACH (08/12/15) EXTIRPATION OF MATTER FROM R POPL ART, PERC APPROACH (08/12/15) FLUOROSCOPY OF L LOW EXTREM ART USING L OSM CONTRAST (08/12/15) FLUOROSCOPY OF R LOW EXTREM ART USING L OSM CONTRAST (08/12/15) FLUOROSCOPY OF RIGHT JUGULAR VEINS, GUIDANCE (06/01/17) FREE SKIN GRAFT NEC (08/03/14) HEAD SOFT TISS X-RAY NEC (04/15/13) HEMODIALYSIS (04/28/15) INCIS W REM OF FORIEGN BODY OR DEV FROM SKIN & SUBCUT TISSUE (08/08/13) INSERT INFUSION DEV IN R INT JUGULAR VEIN, PERC (06/01/17) INSERTION OF INFUSION DEV INTO R SUBCLAV VEIN, PERC APPROACH (01/19/16) INSERTION OF INFUSION DEV INTO SUP VENA CAVA, PERC APPROACH (05/17/17) INSPECTION OF UPPER INTESTINAL TRACT, ENDO (03/03/17) INTRODUCE OF OTH THROMBOLYTIC INTO PERIPH ART, PERC APPROACH (08/12/15) LAPAROSCOPIC CHOLECYSTECTOMY (09/21/13) LOC EXC LES METATAR/TAR (06/01/14) PACKED CELL TRANSFUSION (06/01/14) PERCUTAN LIVER ASPIRAT (12/31/13) PERFORMANCE OF URINARY FILTRATION, MULTIPLE (05/17/17) PERFORMANCE OF URINARY FILTRATION, SINGLE (12/18/16) SKIN & SUBQ INCISION NEC (10/24/14) TETANUS TOXOID ADMINIST (06/13/14) TRANSFUSE NONAUT RED BLOOD CELLS IN PERIPH VEIN, PERC (04/09/17) ULTRASONOGRAPHY OF RIGHT AND LEFT HEART (04/09/17) ULTRASONOGRAPHY OF SUPERIOR VENA CAVA, GUIDANCE (02/20/17) VENOUS CATHETERIZATION FOR RENAL DIALYSIS (08/08/13) VENOUS CATHETERIZATION NEC (04/30/13) Family History: States: No Known Family Hx - Social History Hx Tobacco Use: No Hx Alcohol Use: No Hx Substance Use: No - Immunization History Hx Tetanus Toxoid Vaccination: Yes Hx Influenza Vaccination: Yes Hx Pneumococcal Vaccination: Yes Review Of Systems Except As Marked, All Systems Reviewed And Found Negative. Constitutional: Negative for: Fever, Chills Cardiovascular: Positive for: Palpitations Physical Exam - Physical Exam Appears: Non-toxic, No Acute Distress Skin: Normal Color, Warm Head: Atraumatic, Normacephalic Eye(s): bilateral: Other (blind) Nose: Normal Oral Mucosa: Moist Neck: Supple Chest: Symmetrical Cardiovascular: Rhythm Regular Respiratory: No Accessory Muscle Use, No Rales, Rhonchi (coarse rhonchi over left base), No Wheezing Extremity: Other (bilateral BKAs) Neurological/Psych: Oriented x3, Normal Speech, Normal Motor, Normal Sensation ED Course And Treatment - Laboratory Results Result Diagrams: 10/30/17 21:45 10/30/17 21:45 Lab Interpretation: Abnormal (BUN 32, Cr 4.4, K+ 4.1, Troponin 0.4750) ECG: Interpreted By Dc ECG Rhythm: Sinus Rhythm (with nonspecific intraventricular conduction block and inferior infarct), ST/T Changes (inversion I, AVL,) ECG Interpretation: Abnormal O2 Sat by Pulse Oximetry: 98 (RA) Pulse Ox Interpretation: Normal - Radiology CXR: Interpreted by Me CXR Interpretation: Yes: Cardiomegaly. No: Infiltrates Reevaluation Time: 22:35 Reassessment Condition: Improved (Patient remains asymptomatic) - Physician Consult Information Time Consulting Physician Contacted: 22:36 Physician Contacted: Sybil Li Outcome Of Conversation: She knows the patient well and will admit to tele-obs Medical Decision Making Medical Decision Making: Plan: --Labs --CXR Disposition - Disposition Disposition: HOSPITALIZED Disposition Time: 22:36 Condition: FAIR - POA Present On Arrival: None - Clinical Impression Clinical Impression: ESRD on hemodialysis, Palpitations, Chest pain - Scribe Statement The provider has reviewed the documentation as recorded by the Fabiola Izaguirre Provider Attestation: All medical record entries made by the Fabiola were at my direction and personally dictated by me. I have reviewed the chart and agree that the record accurately reflects my personal performance of the history, physical exam, medical decision making, and the department course for this patient. I have also personally directed, reviewed, and agree with the discharge instructions and disposition.
[2017-10-30 21:50] LABS: BASO % 0.4 % (0.0-2.0); EOS # 0.2 K/uL (0.0-0.7); EOS % 3.1 % (0.0-4.0); HEMOGLOBIN 7.6 g/dL (12.0-18.0); LYMPH # 1.5 K/uL (1.0-4.3); LYMPH % 22.3 % (20.0-40.0); MEAN CELL VOLUME 97.7 fL (80.0-94.0); MEAN CORPUSCULAR HEMOGLOBIN 32.1 pg (27.0-31.0); MEAN CORPUSCULAR HGB CONC 32.9 g/dL (33.0-37.0); MONO # 0.7 K/uL (0.0-0.8); MONO % 10.2 % (0.0-10.0); NEUT # 4.2 K/uL (1.8-7.0); RBC 2.36 Mil/uL (4.40-5.90); RED CELL DISTRIBUTION WIDTH 15.6 % (11.5-14.5); WHITE BLOOD COUNT 6.6 K/uL (4.8-10.8)
[2017-10-30 22:01] LABS: ALB/GLOB RATIO 1.1 (1.0-2.1); ALBUMIN 3.9 g/dL (3.5-5.0)
[2017-10-30 22:16] LABS: TROPONIN I 0.475 ng/mL (0.00-0.120)
[2017-10-31] MEDS ORDERED: HYDROmorphone 1 mg/ml ISec ONE (01:08)
[2017-10-31] MEDS: HYDROmorphone 1 mg/ml ISec IVP PRN ×4 (01:30→19:50)
[2017-10-31] MEDS ORDERED: HYDROmorphone 0.5 mg/0.5 ml ISec ONE (07:31)
[2017-10-31 08:04] LABS: CK-MB 0.6 ng/mL (0.0-3.38)
[2017-10-31 08:06] LABS: TROPONIN I 0.465 ng/mL (0.00-0.120)
--- NOTE | 2017-10-31 08:42 | RAD ---
Chest x-ray single frontal view History: Chest pain. Comparison: 10/17/2017 Findings: Moderate left and small right pleural effusion. Venous congestion. Patchy increased markings at the left lung base. Atelectasis in the right midlung zone. Status post median sternotomy. Cardiomegaly. Lines and tubes stable position. Impression: Moderate left and small right pleural effusion. Venous congestion. Patchy increased markings at the left lung base. Atelectasis in the right midlung zone. Status post median sternotomy. Cardiomegaly.
[2017-10-31] MEDS ORDERED: (Novolin R) Insulin Human Regular 100 units/ml vial ONE (08:58)
[2017-10-31] MEDS: (Novolin R) Insulin Human Regular 100 units/ml vial SC SCH ×4 (09:03→22:20)
[2017-10-31] MEDS ORDERED: Albuterol-Ipratrop 3 mg / 0.5 (3 ml) UD INH SCH (10:00)
[2017-10-31] MEDS ORDERED: Albuterol-Ipratrop 3 mg / 0.5 (3 ml) UD ONE (11:20)
[2017-10-31] MEDS: Albuterol-Ipratrop 3 mg / 0.5 (3 ml) UD INH SCH (11:32)
--- NOTE | 2017-10-31 12:11 | CP.PCM.CON ---
History of Present Illness - History of Present Illness History of Present Illness: 37 y/o male with a history of end stage renal disease, presents to the ER complaining of chest pain. patient with numerus hospitalizations. c/o CP episode last nite at home: L. chest wall aching, 4/10 'sharp' with SOB and palpitation and secondary HTN. He took ASA and NTG without any relief Currently no CP He currently reports palpitation but tele shows NSR and HR in 70's Denies associated diaphoresis, shortness of breath, vomiting, or nausea. Patient scheduled for dialysis today. EK09/09/17; NSR, LVH, chronic ST changes lateral, old inferior infarct. 10/02/17: course AFIB: rate controlled, chronic LVH with strain 10/13/17: NSR, LVH, chronic lateral strain\ 10/30/17; NSR, old inferior infarct, septal infarct, chronic LVH with lateral strain pattern. 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 moderate pulmonary stenosis Chronic diastolic dysfunction grade 3 Chronic pain Hx of non-compliance with meds and on occasion HD Review of Systems - Review of Systems All systems: reviewed and no additional remarkable complaints except Past Patient History - Infectious Disease Hx of Infectious Diseases: None - Tetanus Immunizations Tetanus Immunization: >10 years Ago - Past Medical History & Family History Past Medical History?: Yes - Past Social History Smoking Status: Former Smoker - CARDIAC Hx Atrial Fibrillation: Yes Hx Cardia Arrhythmia: Yes Hx Congestive Heart Failure: Yes Hx Hypercholesterolemia: Yes Hx Hypertension: Yes - PULMONARY Hx Asthma: Yes Hx Bronchitis: Yes Hx Chronic Obstructive Pulmonary Disease (COPD): Yes Hx Pneumonia: Yes - NEUROLOGICAL Hx Alzheimer's Disease: Yes Hx Seizures: Yes - HEENT Hx HEENT Problems: Yes Hx Blind: Yes (legally blind) Hx Cataracts: Yes - RENAL Hx Chronic Kidney Disease: Yes - ENDOCRINE/METABOLIC Hx Hyperthyroidism: No Hx Hypothyroidism: Yes - HEMATOLOGICAL/ONCOLOGICAL Hx Anemia: Yes - INTEGUMENTARY Hx Dermatological Problems: No - MUSCULOSKELETAL/RHEUMATOLOGICAL Hx Arthritis: Yes - GASTROINTESTINAL Hx Gall Bladder Disease: Yes Hx Gastritis: Yes - GENITOURINARY/GYNECOLOGICAL Hx Sexually Transmitted Disorders: No - PSYCHIATRIC Hx Anxiety: Yes Hx Depression: Yes Hx Substance Use: No - SURGICAL HISTORY Hx Cholecystectomy: Yes (2011) 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/2009) Hx Coronary Stent: Yes - ANESTHESIA Hx Anesthesia: Yes Hx Anesthesia Reactions: No Hx Malignant Hyperthermia: No Meds Allergies/Adverse Reactions: Allergies Allergy/AdvReac Type Severity Reaction Status Date / Time acetaminophen [From Percocet] Allergy RASH Verified 10/30/17 21:00 atenolol Allergy RASH Verified 10/30/17 21:00 digoxin Allergy RASH Verified 10/30/17 21:00 milk Allergy ITCHING Verified 10/30/17 21:00 morphine Allergy RASH Verified 10/30/17 21:00 oxycodone HCl [From Percocet] Allergy RASH Verified 10/30/17 21:00 - Medications Medications: Current Medications Albuterol/Ipratropium (Duoneb 3 Mg/0.5 Mg (3 Ml) Ud) 3 ml INH Q6H [facility] Last Admin: 10/31/17 11:32 Dose: 3 ml Amlodipine Besylate (Norvasc) 10 mg PO DAILY [facility] Last Admin: 10/31/17 09:49 Dose: 10 mg Carvedilol (Coreg) 25 mg PO BID [facility] Last Admin: 10/31/17 09:48 Dose: 25 mg Epoetin Tom (Procrit) 10,000 unit IV TTS [facility] Heparin Sodium (Porcine) (Heparin) 5,000 units SC Q12 [facility] Last Admin: 10/31/17 09:48 Dose: 5,000 units Hydralazine HCl (Apresoline) 100 mg PO BID [facility] Last Admin: 10/31/17 09:48 Dose: 100 mg Hydromorphone HCl (Dilaudid) 1 mg IVP Q6 PRN PRN Reason: Pain, moderate (4-7) Last Admin: 10/31/17 07:34 Dose: 1 mg Insulin Glargine (Lantus) 10 unit SC HS [facility] Insulin Human Regular (Novolin R) 0 unit SC ACHS [facility] PRN Reason: Protocol Last Admin: 10/31/17 11:58 Dose: Not Given Physical Exam - Constitutional Appears: No Acute Distress, Chronically Ill - Head Exam Head Exam: NORMOCEPHALIC - Eye Exam Eye Exam: absent: Normal appearance - ENT Exam ENT Exam: Mucous Membranes Moist, Normal Oropharynx - Respiratory Exam Respiratory Exam: Clear to Auscultation Bilateral, NORMAL BREATHING PATTERN. absent: Rhonchi, Wheezes - Cardiovascular Exam Cardiovascular Exam: REGULAR RHYTHM, +S1, +S2, Systolic Murmur (2/6, no radiation, LSB) - GI/Abdominal Exam GI & Abdominal Exam: Soft. absent: Tenderness - Extremities Exam Extremities exam: Negative for: normal inspection (b/l BKA) - Neurological Exam Neurological exam: Alert, Oriented x3 - Psychiatric Exam Psychiatric exam: Normal Affect, Normal Mood - Skin Skin Exam: Normal Color, Warm Results - Vital Signs Recent Vital Signs: Last Vital Signs Temp 98.2 F 10/31/17 07:24 Pulse 72 10/31/17 11:59 Resp 14 10/31/17 11:59 BP 123/66 10/31/17 11:59 Pulse Ox 100 10/31/17 11:59 - Labs Result Diagrams: 10/30/17 21:45 10/30/17 21:45 Labs: Laboratory Results - last 24 hr 10/30/17 10/30/17 10/31/17 21:45 21:45 06:37 WBC 6.6 RBC 2.36 L Hgb 7.6 L Hct 23.1 L MCV 97.7 H MCH 32.1 H MCHC 32.9 L RDW 15.6 H Plt Count 172 MPV 10.0 Neut % (Auto) 64.0 Lymph % (Auto) 22.3 Hardin % (Auto) 10.2 H Eos % (Auto) 3.1 Baso % (Auto) 0.4 Neut # (Auto) 4.2 Lymph # (Auto) 1.5 Hardin # (Auto) 0.7 Eos # (Auto) 0.2 Baso # (Auto) 0.0 Sodium 137 Potassium 4.1 Chloride 94 L Carbon Dioxide 29 Anion Gap 19 BUN 32 H Creatinine 4.4 H Est GFR ( Amer) 19 Est GFR (Non-Af Amer) 15 POC Glucose (mg/dL) Random Glucose 375 H Calcium 9.0 Total Bilirubin 0.6 AST 26 ALT 13 L D Alkaline Phosphatase 212 H Total Creatine Kinase 20 L CK-MB (Mass) 0.60 Troponin I 0.4750 H* 0.4650 H* Total Protein 7.6 Albumin 3.9 Globulin 3.6 Albumin/Globulin Ratio 1.1 Blood Type Antibody Screen Antibody Identification 10/31/17 10/31/17 10/31/17 07:05 07:37 11:50 WBC RBC Hgb Hct MCV MCH MCHC RDW Plt Count MPV Neut % (Auto) Lymph % (Auto) Hardin % (Auto) Eos % (Auto) Baso % (Auto) Neut # (Auto) Lymph # (Auto) Hardin # (Auto) Eos # (Auto) Baso # (Auto) Sodium Potassium Chloride Carbon Dioxide Anion Gap BUN Creatinine Est GFR ( Amer) Est GFR (Non-Af Amer) POC Glucose (mg/dL) 272 H 105 Random Glucose Calcium Total Bilirubin AST ALT Alkaline Phosphatase Total Creatine Kinase CK-MB (Mass) Troponin I Total Protein Albumin Globulin Albumin/Globulin Ratio Blood Type O POSITIVE Antibody Screen Positive Antibody Identification Anti K - EKG Data EKG Interpreted by: Myself Assessment & Plan - Assessment and Plan (Free Text) Assessment: 37 y/o with transgender phenotype > DM brittle poorly controlled and hx of non-compliance > HTN is chronic and stable; with hx of non-compliance and sporadic lability > ESRD on HD with hx of non-compliance and missed sessions > Recurrent anemia and hx of GI bleed > Aflutter paroxysmal > chronic CAD hx of failed bypass, prior PCI and small diffuse secondary vessels > PVD s/p bilateral BKA due to recurrent infections and progressive gangrene and non-healing ulcers > Legally blind > chronic recurrent Chest wall pains/neuropathy Coronary artery disease s/p CABG and subsequent PCI all grafts are closed > He remains with preserved LV function and advanced diastolic dysfunction despite diffuse small vessel CAD (too small for PCI) > Recurrent anemia and GI bleed in past and present: deemed not a good candidate for DAPT > cont ASA if tolerated > EKG: hx of parox Aflutter, chronic LVH with strain ---> Now in NSR with chronic LVH strain pattern. > CXR: pleural effusion, mild congestion > Troponin 0.47 > 0.46 : this is c/w with tachycardia, chronic CHF/diastolic dysfunction and ESRD on top of demand ischemia from chronic non- revascularizable CAD and anemia. > Medical therapy remains his most important and sole treatment option at this stage of chronic CAD. He unfortunately is not a candidate for any surgical or percutaneous therapy. He has had hx of atrial catheter related thrombus in past ---> he was challenged with AC on many occasions but due to GI bleed deemed unsafe.. He has known documented hx of parx AFLUTTER/AFIB > Continue Amiodarone HCl (Cordarone) 200 mg PO DAILY [facility] Amlodipine Besylate (Norvasc) 10 mg PO DAILY [facility] Last Admin: 10/24/17 10:20 Dose: 10 mg Aspirin (Aspirin Chewable) 81 mg PO DAILY [facility] Last Admin: 10/24/17 10:19 Dose: 81 mg Carvedilol (Coreg) 25 mg PO BID [facility] Last Admin: 10/24/17 10:19 Dose: 25 mg Clonidine HCl (Catapres-Tts3 0.3 Mg/24 Hr) 1 patch TD Q7D@1000 [facility] Isosorbide Mononitrate (Imdur) 60 mg PO DAILY [facility] Rosuvastatin Calcium (Crestor) 10 mg PO HS [facility] Ranexa 500 BID Hydralazine 50-100 BID/TID -----------> Titrate these meds as tolerated to achieve optimal BP and HR control. (<120/80 and HR <65). * He has had hx of atrial catheter related thrombus in past ---> he was challenged with AC on many occasions but due to GI bleed deemed unsafe * he has known documented hx of parx AFLUTTER/AFIB Cont HD to maintain volume status
--- NOTE | 2017-10-31 15:40 | CP.PCM.CON ---
History of Present Illness - History of Present Illness History of Present Illness: pt seen and examined in ER HD today as ordered Past Patient History - Infectious Disease Hx of Infectious Diseases: None - Tetanus Immunizations Tetanus Immunization: >10 years Ago - Past Medical History & Family History Past Medical History?: Yes - Past Social History Smoking Status: Former Smoker - CARDIAC Hx Atrial Fibrillation: Yes Hx Cardia Arrhythmia: Yes Hx Congestive Heart Failure: Yes Hx Hypercholesterolemia: Yes Hx Hypertension: Yes - PULMONARY Hx Asthma: Yes Hx Bronchitis: Yes Hx Chronic Obstructive Pulmonary Disease (COPD): Yes Hx Pneumonia: Yes - NEUROLOGICAL Hx Alzheimer's Disease: Yes Hx Seizures: Yes - HEENT Hx HEENT Problems: Yes Hx Blind: Yes (legally blind) Hx Cataracts: Yes - RENAL Hx Chronic Kidney Disease: Yes - ENDOCRINE/METABOLIC Hx Hyperthyroidism: No Hx Hypothyroidism: Yes - HEMATOLOGICAL/ONCOLOGICAL Hx Anemia: Yes - INTEGUMENTARY Hx Dermatological Problems: No - MUSCULOSKELETAL/RHEUMATOLOGICAL Hx Arthritis: Yes - GASTROINTESTINAL Hx Gall Bladder Disease: Yes Hx Gastritis: Yes - GENITOURINARY/GYNECOLOGICAL Hx Sexually Transmitted Disorders: No - PSYCHIATRIC Hx Anxiety: Yes Hx Depression: Yes Hx Substance Use: No - SURGICAL HISTORY Hx Cholecystectomy: Yes (2011) 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/2009) Hx Coronary Stent: Yes - ANESTHESIA Hx Anesthesia: Yes Hx Anesthesia Reactions: No Hx Malignant Hyperthermia: No Meds Allergies/Adverse Reactions: Allergies Allergy/AdvReac Type Severity Reaction Status Date / Time acetaminophen [From Percocet] Allergy RASH Verified 10/30/17 21:00 atenolol Allergy RASH Verified 10/30/17 21:00 digoxin Allergy RASH Verified 10/30/17 21:00 milk Allergy ITCHING Verified 10/30/17 21:00 morphine Allergy RASH Verified 10/30/17 21:00 oxycodone HCl [From Percocet] Allergy RASH Verified 10/30/17 21:00 - Medications Medications: Current Medications Albuterol/Ipratropium (Duoneb 3 Mg/0.5 Mg (3 Ml) Ud) 3 ml INH Q6H [facility] Last Admin: 10/31/17 11:32 Dose: 3 ml Amlodipine Besylate (Norvasc) 10 mg PO DAILY [facility] Last Admin: 10/31/17 09:49 Dose: 10 mg Carvedilol (Coreg) 25 mg PO BID [facility] Last Admin: 03/01/18 09:48 Dose: 25 mg Epoetin Tom (Procrit) 10,000 unit IV TTS [facility] Heparin Sodium (Porcine) (Heparin) 5,000 units SC Q12 [facility] Last Admin: 10/31/17 09:48 Dose: 5,000 units Hydralazine HCl (Apresoline) 100 mg PO BID [facility] Last Admin: 10/31/17 09:48 Dose: 100 mg Hydromorphone HCl (Dilaudid) 1 mg IVP Q6 PRN PRN Reason: Pain, moderate (4-7) Last Admin: 10/31/17 13:39 Dose: 1 mg Insulin Glargine (Lantus) 10 unit SC HS [facility] Insulin Human Regular (Novolin R) 0 unit SC ACHS [facility] PRN Reason: Protocol Last Admin: 10/31/17 11:58 Dose: Not Given Results - Vital Signs Recent Vital Signs: Last Vital Signs Temp 98.1 F 10/31/17 13:01 Pulse 67 10/31/17 13:01 Resp 18 10/31/17 13:01 BP 107/64 10/31/17 13:01 Pulse Ox 100 10/31/17 13:01 - Labs Result Diagrams: 10/30/17 21:45 10/30/17 21:45 Labs: Laboratory Results - last 24 hr 10/30/17 10/30/17 10/31/17 21:45 21:45 06:37 WBC 6.6 RBC 2.36 L Hgb 7.6 L Hct 23.1 L MCV 97.7 H MCH 32.1 H MCHC 32.9 L RDW 15.6 H Plt Count 172 MPV 10.0 Neut % (Auto) 64.0 Lymph % (Auto) 22.3 [place] % (Auto) 10.2 H Eos % (Auto) 3.1 Baso % (Auto) 0.4 Neut # (Auto) 4.2 Lymph # (Auto) 1.5 [place] # (Auto) 0.7 Eos # (Auto) 0.2 Baso # (Auto) 0.0 Sodium 137 Potassium 4.1 Chloride 94 L Carbon Dioxide 29 Anion Gap 19 BUN 32 H Creatinine 4.4 H Est GFR ( Amer) 19 Est GFR (Non-Af Amer) 15 POC Glucose (mg/dL) Random Glucose 375 H Calcium 9.0 Total Bilirubin 0.6 AST 26 ALT 13 L D Alkaline Phosphatase 212 H Total Creatine Kinase 20 L CK-MB (Mass) 0.60 Troponin I 0.4750 H* 0.4650 H* Total Protein 7.6 Albumin 3.9 Globulin 3.6 Albumin/Globulin Ratio 1.1 Blood Type Antibody Screen Antibody Identification 10/31/17 10/31/17 10/31/17 07:05 07:37 11:50 WBC RBC Hgb Hct MCV MCH MCHC RDW Plt Count MPV Neut % (Auto) Lymph % (Auto) [place] % (Auto) Eos % (Auto) Baso % (Auto) Neut # (Auto) Lymph # (Auto) [place] # (Auto) Eos # (Auto) Baso # (Auto) Sodium Potassium Chloride Carbon Dioxide Anion Gap BUN Creatinine Est GFR ( Amer) Est GFR (Non-Af Amer) POC Glucose (mg/dL) 272 H 105 Random Glucose Calcium Total Bilirubin AST ALT Alkaline Phosphatase Total Creatine Kinase CK-MB (Mass) Troponin I Total Protein Albumin Globulin Albumin/Globulin Ratio Blood Type O POSITIVE Antibody Screen Positive Antibody Identification Anti K
[2017-10-31] MEDS: Epoetin Alfa 10,000 unit/ml Dialysis IV SCH (16:23)
--- NOTE | 2017-10-31 16:54 | CP.PCM.HP ---
History of Present Illness - History of Present Illness History of Present Illness: pt came in to ed for chest pain palpitation cob triponin hi Present on Admission - Present on Admission Any Indicators Present on Admission: Yes Review of Systems - Review of Systems Systems not reviewed;Unavailable: Acuity of Condition - Constitutional Constitutional: Fatigue - EENT Eyes: Blind Spots Ears: As Per HPI Nose/Mouth/Throat: As Per HPI - Cardiovascular Cardiovascular: Chest Pain at Rest, Palpitations - Respiratory Respiratory: Dyspnea - Gastrointestinal Gastrointestinal: As Per HPI - Genitourinary Genitourinary: As Per HPI - Reproductive: Male Additional comments: [email or web address] - Musculoskeletal Musculoskeletal: Back Pain - Integumentary Integumentary: As Per HPI - Neurological Neurological: As Per HPI - Psychiatric Psychiatric: Depression - Endocrine Endocrine: Cold Intolorance - Hematologic/Lymphatic Hematologic: As Per HPI Past Patient History - Infectious Disease Hx of Infectious Diseases: None - Tetanus Immunizations Tetanus Immunization: >10 years Ago - Past Medical History & Family History Past Medical History?: Yes - Past Social History Smoking Status: Former Smoker - CARDIAC Hx Atrial Fibrillation: Yes Hx Cardia Arrhythmia: Yes Hx Congestive Heart Failure: Yes Hx Hypercholesterolemia: Yes Hx Hypertension: Yes - PULMONARY Hx Asthma: Yes Hx Bronchitis: Yes Hx Chronic Obstructive Pulmonary Disease (COPD): Yes Hx Pneumonia: Yes - NEUROLOGICAL Hx Alzheimer's Disease: Yes Hx Seizures: Yes - HEENT Hx HEENT Problems: Yes Hx Blind: Yes (legally blind) Hx Cataracts: Yes - RENAL Hx Chronic Kidney Disease: Yes - ENDOCRINE/METABOLIC Hx Hyperthyroidism: No Hx Hypothyroidism: Yes - HEMATOLOGICAL/ONCOLOGICAL Hx Anemia: Yes - INTEGUMENTARY Hx Dermatological Problems: No - MUSCULOSKELETAL/RHEUMATOLOGICAL Hx Arthritis: Yes - GASTROINTESTINAL Hx Gall Bladder Disease: Yes Hx Gastritis: Yes - GENITOURINARY/GYNECOLOGICAL Hx Sexually Transmitted Disorders: No - PSYCHIATRIC Hx Anxiety: Yes Hx Depression: Yes Hx Substance Use: No - SURGICAL HISTORY Hx Cholecystectomy: Yes (2011) 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/2009) Hx Coronary Stent: Yes - ANESTHESIA Hx Anesthesia: Yes Hx Anesthesia Reactions: No Hx Malignant Hyperthermia: No Meds Allergies/Adverse Reactions: Allergies Allergy/AdvReac Type Severity Reaction Status Date / Time acetaminophen [From Percocet] Allergy RASH Verified 10/30/17 21:00 atenolol Allergy RASH Verified 10/30/17 21:00 digoxin Allergy RASH Verified 10/30/17 21:00 milk Allergy ITCHING Verified 10/30/17 21:00 morphine Allergy RASH Verified 10/30/17 21:00 oxycodone HCl [From Percocet] Allergy RASH Verified 10/30/17 21:00 Physical Exam - Constitutional Appears: Non-toxic - Head Exam Head Exam: ATRAUMATIC - Eye Exam Eye Exam: Conjunctival injection - ENT Exam ENT Exam: Mucous Membranes Dry - Neck Exam Neck exam: Positive for: Full Rom - Respiratory Exam Respiratory Exam: Decreased Breath Sounds - Cardiovascular Exam Cardiovascular Exam: REGULAR RHYTHM, +S1, +S2, +S4 - GI/Abdominal Exam GI & Abdominal Exam: Normal Bowel Sounds - Extremities Exam Additional comments: bilateral amputation - Back Exam Back exam: CVA tenderness (L) - Neurological Exam Neurological exam: Alert, Oriented x3 - Psychiatric Exam Psychiatric exam: Normal Affect - Skin Skin Exam: Pallor Results - Vital Signs Recent Vital Signs: Last Vital Signs Temp 97.8 F 10/31/17 13:30 Pulse 61 10/31/17 15:30 Resp 16 10/31/17 15:30 BP 150/71 10/31/17 15:30 Pulse Ox 100 10/31/17 15:30 - Labs Result Diagrams: 10/30/17 21:45 10/30/17 21:45 Labs: Laboratory Results - last 24 hr 10/30/17 10/30/17 10/31/17 21:45 21:45 06:37 WBC 6.6 RBC 2.36 L Hgb 7.6 L Hct 23.1 L MCV 97.7 H MCH 32.1 H MCHC 32.9 L RDW 15.6 H Plt Count 172 MPV 10.0 Neut % (Auto) 64.0 Lymph % (Auto) 22.3 [place] % (Auto) 10.2 H Eos % (Auto) 3.1 Baso % (Auto) 0.4 Neut # (Auto) 4.2 Lymph # (Auto) 1.5 [place] # (Auto) 0.7 Eos # (Auto) 0.2 Baso # (Auto) 0.0 Sodium 137 Potassium 4.1 Chloride 94 L Carbon Dioxide 29 Anion Gap 19 BUN 32 H Creatinine 4.4 H Est GFR ( Amer) 19 Est GFR (Non-Af Amer) 15 POC Glucose (mg/dL) Random Glucose 375 H Calcium 9.0 Total Bilirubin 0.6 AST 26 ALT 13 L D Alkaline Phosphatase 212 H Total Creatine Kinase 20 L CK-MB (Mass) 0.60 Troponin I 0.4750 H* 0.4650 H* Total Protein 7.6 Albumin 3.9 Globulin 3.6 Albumin/Globulin Ratio 1.1 Blood Type Antibody Screen Antibody Identification 10/31/17 10/31/17 10/31/17 07:05 07:37 11:50 WBC RBC Hgb Hct MCV MCH MCHC RDW Plt Count MPV Neut % (Auto) Lymph % (Auto) [place] % (Auto) Eos % (Auto) Baso % (Auto) Neut # (Auto) Lymph # (Auto) [place] # (Auto) Eos # (Auto) Baso # (Auto) Sodium Potassium Chloride Carbon Dioxide Anion Gap BUN Creatinine Est GFR ( Amer) Est GFR (Non-Af Amer) POC Glucose (mg/dL) 272 H 105 Random Glucose Calcium Total Bilirubin AST ALT Alkaline Phosphatase Total Creatine Kinase CK-MB (Mass) Troponin I Total Protein Albumin Globulin Albumin/Globulin Ratio Blood Type O POSITIVE Antibody Screen Positive Antibody Identification Anti K 10/31/17 16:27 WBC RBC Hgb Hct MCV MCH MCHC RDW Plt Count MPV Neut % (Auto) Lymph % (Auto) [place] % (Auto) Eos % (Auto) Baso % (Auto) Neut # (Auto) Lymph # (Auto) [place] # (Auto) Eos # (Auto) Baso # (Auto) Sodium Potassium Chloride Carbon Dioxide Anion Gap BUN Creatinine Est GFR ( Amer) Est GFR (Non-Af Amer) POC Glucose (mg/dL) 93 Random Glucose Calcium Total Bilirubin AST ALT Alkaline Phosphatase Total Creatine Kinase CK-MB (Mass) Troponin I Total Protein Albumin Globulin Albumin/Globulin Ratio Blood Type Antibody Screen Antibody Identification Assessment & Plan - Assessment and Plan (Free Text) Assessment: ac [id number] chest pain cad sob chf htn dm palpitation esrf aneamia secere Plan: admit and as per orders - Date & Time Date: 10/31/17 Time: 16:58
--- NOTE | 2017-10-31 18:52 | CARD ---
APPROVED REPORT EKG Measurement Heart [id number] <Conclusion> Normal sinus rhythm Nonspecific intraventricular block Possible Inferior infarct, age undetermined T wave abnormality, consider lateral ischemia Abnormal ECG
[2017-10-31 20:18] LABS: BASO % 0.5 % (0.0-2.0); EOS # 0.4 K/uL (0.0-0.7); EOS % 4.2 % (0.0-4.0); HEMOGLOBIN 8.6 g/dL (12.0-18.0); LYMPH # 2.2 K/uL (1.0-4.3); MEAN CELL VOLUME 97.2 fL (80.0-94.0); MEAN CORPUSCULAR HEMOGLOBIN 32.3 pg (27.0-31.0); MEAN CORPUSCULAR HGB CONC 33.2 g/dL (33.0-37.0); MEAN PLATELET VOLUME 9.4 fL (7.2-11.7); MONO # 0.8 K/uL (0.0-0.8); MONO % 8.8 % (0.0-10.0); NEUT # 5.8 K/uL (1.8-7.0); NEUT % 62.5 % (50.0-75.0); NRBC % 0.1 % (0.0-2.0); RBC 2.68 Mil/uL (4.40-5.90); RED CELL DISTRIBUTION WIDTH 15.7 % (11.5-14.5); WHITE BLOOD COUNT 9.2 K/uL (4.8-10.8)
[2017-10-31] MEDS: (Lantus) Insulin Glargine, Recombinant SC SCH (22:19)
[2017-11-01] MEDS: Albuterol-Ipratrop 3 mg / 0.5 (3 ml) UD INH SCH ×3 (01:49→13:26)
[2017-11-01] MEDS: HYDROmorphone 1 mg/ml ISec IVP PRN ×3 (02:01→19:03)
[2017-11-01] MEDS: (Novolin R) Insulin Human Regular 100 units/ml vial SC SCH ×4 (08:12→22:36)
--- NOTE | 2017-11-01 11:35 | CP.PCM.PN ---
Subjective - Date & Time of Evaluation Date of Evaluation: 11/01/17 Time of Evaluation: 11:34 - Subjective Subjective: Nephrology Consultation: Assessment: Stable chronic chest pain, fluid overload Diabetic chronic Kidney Disease (E11.22) Hypertensive Chronic Kidney Disease (I12.0) End stage renal disease (N18.6) dependence on hemodialysis (Z99.2) (TTS) via AVF Anemia (D64.9), Hyperphosphatemia (E83.39), Secondary Hyperparathyroidism (E21.1 ), HTN (I12.0) CAD s/p CABG, diastolic CHF, pA flutter/fib, intra-cardiac thrombus, hx of Heparin induced thrombocytopenia, hx of seizure, blindness Plan: Will plan for isolated UF today. Continue with Nephrovite 1 tab/day. PRBC as needed for anemia. added Epogen with HD Continue with phos binders home dose Continue with calcitriol BP control with meds as ordered. Glycemic control, Dialysis consistent diet Further work up/management as per primary team Dose meds/antibiotics (if needed) for ESRD status. Avoid fleets enema/magnesium based laxatives. cardiology following Thanks for allowing me to participate in care of your patient. Will follow patient with you. Please call if any Qs Dr Eric Temple Office: [phone] Chief Complaint; chest pain palpitation SOB HPI: Pt is a 37 y/o transgender M with hx of ESRD on hemodialysis (TTS) via permacath, chronic anemia, hyperphosphatemia, secondary hyperparathyroidism, Diabetes Mellitus, hypertension, CAD s/p CABG, diastolic CHF, pA flutter/fib, intra-cardiac thrombus, Heparin induced thrombocytopenia in past presented with complaints of acute on chronic chest pain. pt with frequent and multiple hospitalizations for same. also c/o palpitations c/o chronic chest pain, denies palpitation, c/o chronic shortness of breath ROS: All other negative except as in HPI. no GI complaints Physical Examination: General Appearance: Comfortable, in no acute respiratory distress, co-operative . Vitals reviewed and noted as below Head; Atraumatic, normocephalic ENT: no ulcers no thrush. Tongue is midline. Oropharynx: no rash or ulcers. EYES: Pt is blind both eyes Neck; supple no lymphadenopathy, no thyromegaly or bruit Lungs: Normal respiratory rate/effort. Breath sounds bilateral + with Rt rales/ basal crackles Heart: Normal rate. s1s2 normal. No rub or gallop. Extremities: no edema. No varicose veins. has b/l BKA Neurological: Patient is alert, awake and oriented to person, place and time. No focal deficit. Strength bilateral appropriate and equal Skin: Warm and dry. Normal turgor. No rash. Palpitation: Normal elasticity for age Abdomen: Abdomen is soft. Bowel sounds +. There is no abdominal tenderness, no guarding/rigidity or organomegaly Psych: limited insight and has normal affect/mood MSK: no joint tenderness or swelling. Digits and nails normal, no deformity : kidney or bladder not palpable Access: permacath Labs/imaging reviewed. Past medical history, past surgical history, family history, social history, allergy reviewed and noted as below Family Hx: no hx of CKD. Non contributory Objective - Vital Signs/Intake and Output Vital Signs (last 24 hours): Temp Pulse Resp BP Pulse Ox 98.3 F 62 20 118/72 99 11/01/17 08:00 11/01/17 08:01 11/01/17 08:00 11/01/17 10:00 11/01/17 08:00 Intake and Output: 11/01/17 11/01/17 06:59 18:59 Intake Total 150 Balance 150 - Medications Medications: Current Medications Albuterol/Ipratropium (Duoneb 3 Mg/0.5 Mg (3 Ml) Ud) 3 ml INH Q6H [facility] Last Admin: 11/01/17 07:47 Dose: 3 ml Amlodipine Besylate (Norvasc) 10 mg PO DAILY [facility] Last Admin: 11/01/17 09:59 Dose: 10 mg Carvedilol (Coreg) 25 mg PO BID [facility] Last Admin: 11/01/17 10:00 Dose: 25 mg Epoetin Tom (Procrit) 10,000 unit IV TTS [facility] Last Admin: 10/31/17 16:23 Dose: 10,000 unit Heparin Sodium (Porcine) (Heparin) 5,000 units SC Q12 [facility] Last Admin: 11/01/17 10:01 Dose: Not Given Hydralazine HCl (Apresoline) 100 mg PO BID [facility] Last Admin: 11/01/17 09:59 Dose: 100 mg Hydromorphone HCl (Dilaudid) 1 mg IVP Q6 PRN PRN Reason: Pain, moderate (4-7) Last Admin: 11/01/17 08:11 Dose: 1 mg Insulin Glargine (Lantus) 10 unit SC HS [facility] Last Admin: 10/31/17 22:19 Dose: 10 unit Insulin Human Regular (Novolin R) 0 unit SC ACHS [facility] PRN Reason: Protocol Last Admin: 11/01/17 08:12 Dose: 3 unit - Labs Labs: 10/31/17 20:11 10/30/17 21:45
[2017-11-01] MEDS ORDERED: HYDROmorphone 1 mg/ml ISec IVP STA (12:41)
[2017-11-01 14:11] LABS: HEMOGLOBIN 8.2 g/dL (12.0-18.0); MEAN CELL VOLUME 97.2 fL (80.0-94.0); MEAN CORPUSCULAR HEMOGLOBIN 32.7 pg (27.0-31.0); MEAN CORPUSCULAR HGB CONC 33.7 g/dL (33.0-37.0); MEAN PLATELET VOLUME 9.2 fL (7.2-11.7); RBC 2.52 Mil/uL (4.40-5.90); RED CELL DISTRIBUTION WIDTH 15.5 % (11.5-14.5); WHITE BLOOD COUNT 10.1 K/uL (4.8-10.8)
[2017-11-01 14:26] LABS: ALB/GLOB RATIO 0.9 (1.0-2.1); ALBUMIN 3.7 g/dL (3.5-5.0); CALCIUM 9.3 mg/dl (8.6-10.4)
[2017-11-01 14:44] LABS: TROPONIN I 0.286 ng/mL (0.00-0.120)
[2017-11-01] MEDS: (Lantus) Insulin Glargine, Recombinant SC SCH (22:40)
[2017-11-02] MEDS: HYDROmorphone 1 mg/ml ISec IVP PRN ×3 (01:11→14:00)
[2017-11-02] MEDS: Albuterol-Ipratrop 3 mg / 0.5 (3 ml) UD INH SCH ×3 (01:29→13:59)
[2017-11-02] MEDS ORDERED: Multivitamin Vitamin B Complex (Nephro-Vite) Tab PO SCH (08:00)
[2017-11-02] MEDS: (Novolin R) Insulin Human Regular 100 units/ml vial SC SCH ×2 (08:03→12:45)
[2017-11-02 08:21] VITALS: RESP 20
[2017-11-02] MEDS: Epoetin Alfa 10,000 unit/ml Dialysis IV SCH (10:27)
--- NOTE | 2017-11-02 11:58 | CP.PCM.PN ---
Subjective - Date & Time of Evaluation Date of Evaluation: 11/02/17 Time of Evaluation: 11:56 - Subjective Subjective: having dialysis today no chest pain ht rgular rythm Objective - Vital Signs/Intake and Output Vital Signs (last 24 hours): Temp Pulse Resp BP Pulse Ox 98.1 F 81 20 99/60 L 98 11/02/17 10:18 11/02/17 10:18 11/02/17 10:18 11/02/17 10:25 11/02/17 09:40 Intake and Output: 11/02/17 11/02/17 06:59 18:59 Intake Total 50 Balance 50 - Medications Medications: Current Medications Albuterol/Ipratropium (Duoneb 3 Mg/0.5 Mg (3 Ml) Ud) 3 ml INH RQ6 [facility] Last Admin: 11/02/17 07:23 Dose: 3 ml Amlodipine Besylate (Norvasc) 10 mg PO DAILY [facility] Last Admin: 11/02/17 10:52 Dose: Not Given Carvedilol (Coreg) 25 mg PO BID [facility] Last Admin: 11/02/17 10:52 Dose: Not Given Epoetin Tom (Procrit) 10,000 unit IV TTS [facility] Last Admin: 11/02/17 10:27 Dose: 10,000 unit Gabapentin (Neurontin) 300 mg PO HS [facility] Last Admin: 11/01/17 22:43 Dose: 300 mg Heparin Sodium (Porcine) (Heparin) 5,000 units SC Q12 [facility] Last Admin: 11/02/17 10:52 Dose: Not Given Hydralazine HCl (Apresoline) 100 mg PO BID [facility] Last Admin: 11/02/17 10:52 Dose: Not Given Hydromorphone HCl (Dilaudid) 1 mg IVP Q6 PRN PRN Reason: Pain, moderate (4-7) Last Admin: 11/02/17 08:01 Dose: 1 mg Insulin Glargine (Lantus) 10 unit SC HS [facility] Last Admin: 11/01/17 22:40 Dose: 10 unit Insulin Human Regular (Novolin R) 0 unit SC ACHS [facility] PRN Reason: Protocol Last Admin: 11/02/17 08:03 Dose: 6 unit Vitamin B Complex/Vit C/Folic Acid (Nephro-Courtney) 1 tab PO 0800 [facility] Last Admin: 11/02/17 08:02 Dose: 1 tab - Labs Labs: 11/01/17 14:06 11/01/17 14:06 - Constitutional Appears: Non-toxic, Chronically Ill - Head Exam Head Exam: NORMOCEPHALIC - Eye Exam Eye Exam: Conjunctival injection - ENT Exam ENT Exam: Normal Exam - Neck Exam Neck Exam: Full ROM - Respiratory Exam Respiratory Exam: Decreased Breath Sounds - Cardiovascular Exam Cardiovascular Exam: REGULAR RHYTHM - GI/Abdominal Exam GI & Abdominal Exam: Normal Bowel Sounds - Rectal Exam Rectal Exam: NORMAL INSPECTION - Back Exam Back Exam: NORMAL INSPECTION - Neurological Exam Neurological Exam: Oriented x3 - Psychiatric Exam Psychiatric exam: Normal Affect - Skin Skin Exam: Normal Color, Pallor Assessment and Plan - Assessment and Plan (Free Text) Assessment: cad chf esrf dm deprsion Plan: improved will d/c home today
[2017-11-02 12:23] VITALS: PULSE 73
--- NOTE | 2017-11-02 14:02 | CP.PCM.PN ---
Subjective - Date & Time of Evaluation Date of Evaluation: 11/02/17 Time of Evaluation: 13:58 - Subjective Subjective: Had 2 days of HD consecutive No CP or SOB No volume overload No fevers, chills, N/V Alert, Awake, baseline mood/behaviour Objective - Vital Signs/Intake and Output Vital Signs (last 24 hours): Temp Pulse Resp BP Pulse Ox 98.1 F 73 20 99/60 L 98 11/02/17 10:18 11/02/17 12:00 11/02/17 10:18 11/02/17 10:25 11/02/17 09:40 Intake and Output: 11/02/17 11/02/17 06:59 18:59 Intake Total 50 Balance 50 - Medications Medications: Current Medications Albuterol/Ipratropium (Duoneb 3 Mg/0.5 Mg (3 Ml) Ud) 3 ml INH RQ6 [facility] Last Admin: 11/02/17 07:23 Dose: 3 ml Amlodipine Besylate (Norvasc) 10 mg PO DAILY [facility] Last Admin: 11/02/17 10:52 Dose: Not Given Carvedilol (Coreg) 25 mg PO BID [facility] Last Admin: 11/02/17 10:52 Dose: Not Given Epoetin Tom (Procrit) 10,000 unit IV TTS [facility] Last Admin: 11/02/17 10:27 Dose: 10,000 unit Gabapentin (Neurontin) 300 mg PO HS [facility] Last Admin: 11/01/17 22:43 Dose: 300 mg Heparin Sodium (Porcine) (Heparin) 5,000 units SC Q12 [facility] Last Admin: 11/02/17 10:52 Dose: Not Given Hydralazine HCl (Apresoline) 100 mg PO BID [facility] Last Admin: 11/02/17 10:52 Dose: Not Given Hydromorphone HCl (Dilaudid) 1 mg IVP Q6 PRN PRN Reason: Pain, moderate (4-7) Last Admin: 11/02/17 08:01 Dose: 1 mg Insulin Glargine (Lantus) 10 unit SC HS [facility] Last Admin: 11/01/17 22:40 Dose: 10 unit Insulin Human Regular (Novolin R) 0 unit SC ACHS [facility] PRN Reason: Protocol Last Admin: 11/02/17 12:45 Dose: Not Given Vitamin B Complex/Vit C/Folic Acid (Nephro-Courtney) 1 tab PO 0800 [facility] Last Admin: 11/02/17 08:02 Dose: 1 tab - Labs Labs: 11/01/17 14:06 11/01/17 14:06 - Constitutional Appears: Chronically Ill (Legally Blind, No JVD, CVS RRR soft SM no rad, ABD soft NT, B/l BKA) Assessment and Plan - Assessment and Plan (Free Text) Assessment: 37 y/o with transgender phenotype > DM brittle poorly controlled and hx of non-compliance > HTN is chronic and stable; with hx of non-compliance and sporadic lability > ESRD on HD with hx of non-compliance and missed sessions > Recurrent anemia and hx of GI bleed > Aflutter paroxysmal > chronic CAD hx of failed bypass, prior PCI and small diffuse secondary vessels > PVD s/p bilateral BKA due to recurrent infections and progressive gangrene and non-healing ulcers > Legally blind > chronic recurrent Chest wall pains/neuropathy Coronary artery disease s/p CABG and subsequent PCI all grafts are closed > He remains with preserved LV function and advanced diastolic dysfunction despite diffuse small vessel CAD (too small for PCI) > Recurrent anemia and GI bleed in past and present: deemed not a good candidate for DAPT > cont ASA if tolerated > EKG: hx of parox Aflutter, chronic LVH with strain ---> Now in NSR with chronic LVH strain pattern. > CXR: pleural effusion, mild congestion > Troponin 0.47 > 0.46 > 0.26 : this is c/w with tachycardia, chronic CHF/ diastolic dysfunction and ESRD on top of demand ischemia from chronic non- revascularizable CAD and anemia. > Medical therapy remains his most important and sole treatment option at this stage of chronic CAD. He unfortunately is not a candidate for any surgical or percutaneous therapy. He has had hx of atrial catheter related thrombus in past ---> he was challenged with AC on many occasions but due to GI bleed deemed unsafe.. He has known documented hx of parx AFLUTTER/AFIB > Continue Amiodarone HCl (Cordarone) 200 mg PO DAILY [facility] Amlodipine Besylate (Norvasc) 10 mg PO DAILY [facility] Last Admin: 10/24/17 10:20 Dose: 10 mg Aspirin (Aspirin Chewable) 81 mg PO DAILY [facility] Last Admin: 10/24/17 10:19 Dose: 81 mg Carvedilol (Coreg) 25 mg PO BID [facility] Last Admin: 10/24/17 10:19 Dose: 25 mg Clonidine HCl (Catapres-Tts3 0.3 Mg/24 Hr) 1 patch TD Q7D@1000 [facility] Isosorbide Mononitrate (Imdur) 60 mg PO DAILY [facility] Rosuvastatin Calcium (Crestor) 10 mg PO HS [facility] Ranexa 500 BID Hydralazine 50-100 BID/TID -----------> Titrate these meds as tolerated to achieve optimal BP and HR control. (<120/80 and HR <65). * He has had hx of atrial catheter related thrombus in past ---> he was challenged with AC on many occasions but due to GI bleed deemed unsafe * he has known documented hx of parx AFLUTTER/AFIB Cont HD to maintain volume status Echo ordered to re-eval LVEF: however hi is clinically stable without ADHF: will consider plan as outpatient.
--- NOTE | 2017-11-02 14:21 | CP.PCM.PN ---
Subjective - Date & Time of Evaluation Date of Evaluation: 11/02/17 Time of Evaluation: 14:15 - Subjective Subjective: PATIENT WAS ADMITTED FOR CHEST PAIN AAOX 3; LAY IN BED AFTER DIALYSIS DENIES CHEST PAIN OR SOB NO SIGN OF DISTRESS NOTED Objective - Vital Signs/Intake and Output Vital Signs (last 24 hours): Temp Pulse Resp BP Pulse Ox 98.1 F 73 20 99/60 L 98 11/02/17 10:18 11/02/17 12:00 11/02/17 10:18 11/02/17 10:25 11/02/17 09:40 Intake and Output: 11/02/17 11/02/17 06:59 18:59 Intake Total 50 Balance 50 - Medications Medications: Current Medications Albuterol/Ipratropium (Duoneb 3 Mg/0.5 Mg (3 Ml) Ud) 3 ml INH RQ6 [facility] Last Admin: 11/02/17 13:59 Dose: Not Given Amlodipine Besylate (Norvasc) 10 mg PO DAILY [facility] Last Admin: 11/02/17 10:52 Dose: Not Given Carvedilol (Coreg) 25 mg PO BID [facility] Last Admin: 11/02/17 10:52 Dose: Not Given Epoetin Tom (Procrit) 10,000 unit IV TTS [facility] Last Admin: 11/02/17 10:27 Dose: 10,000 unit Gabapentin (Neurontin) 300 mg PO HS [facility] Last Admin: 11/01/17 22:43 Dose: 300 mg Heparin Sodium (Porcine) (Heparin) 5,000 units SC Q12 [facility] Last Admin: 11/02/17 10:52 Dose: Not Given Hydralazine HCl (Apresoline) 100 mg PO BID [facility] Last Admin: 11/02/17 10:52 Dose: Not Given Hydromorphone HCl (Dilaudid) 1 mg IVP Q6 PRN PRN Reason: Pain, moderate (4-7) Last Admin: 11/02/17 14:00 Dose: 1 mg Insulin Glargine (Lantus) 10 unit SC HS [facility] Last Admin: 11/01/17 22:40 Dose: 10 unit Insulin Human Regular (Novolin R) 0 unit SC ACHS [facility] PRN Reason: Protocol Last Admin: 11/02/17 12:45 Dose: Not Given Vitamin B Complex/Vit C/Folic Acid (Nephro-Courtney) 1 tab PO 0800 [facility] Last Admin: 11/02/17 08:02 Dose: 1 tab - Labs Labs: 11/01/17 14:06 11/01/17 14:06 Assessment and Plan - Assessment and Plan (Free Text) Assessment: PATIENT SEEN AND EXAMINED AT THE BEDSIDE LUNG SOUND CLEAR HEMODYNAMICLY STABLE AFTER DIALYSIS CLEAR BY DR DONALDSON ---HELP APPRECIATED WILL MANAGE ELEVATED TNI MEDICALLY DISCUSS WITH PMD WHO AGREE AND CLEAR FOR DC FOLLOW UP WITH DR BELL AT HER OFFICE IN 2WEEK --CALL FOR APPOINTMENT DIALYSIS YOUR USUAL SCHEDULE CONTINUE ALL YOUR HOME MEDICATION ORDER ACTIVITY TOLERATED CALL DR BELL OR GO TO THE EMERGENCY ROOM IF SYMPTOMS RETURN OR WORSENING DISCUSS WITH PATIENT WHO AGREE AND VERBALIZED UNDERSTANDING
--- NOTE | 2017-11-02 15:24 | CP.PCM.PN ---
Subjective - Date & Time of Evaluation Date of Evaluation: 11/02/17 Time of Evaluation: 12:05 - Subjective Subjective: s: seen on hd complaisn of pain vss no edema imp: esrd: continue HD TTS bp stable discussed w/ cardiology Objective - Vital Signs/Intake and Output Vital Signs (last 24 hours): Temp Pulse Resp BP Pulse Ox 98.1 F 73 20 99/60 L 98 11/02/17 10:18 11/02/17 12:00 11/02/17 10:18 11/02/17 10:25 11/02/17 09:40 Intake and Output: 11/02/17 11/02/17 06:59 18:59 Intake Total 50 Balance 50 - Medications Medications: Current Medications Albuterol/Ipratropium (Duoneb 3 Mg/0.5 Mg (3 Ml) Ud) 3 ml INH RQ6 [facility] Last Admin: 11/02/17 13:59 Dose: Not Given Amlodipine Besylate (Norvasc) 10 mg PO DAILY [facility] Last Admin: 11/02/17 10:52 Dose: Not Given Carvedilol (Coreg) 25 mg PO BID [facility] Last Admin: 11/02/17 10:52 Dose: Not Given Epoetin Tom (Procrit) 10,000 unit IV TTS [facility] Last Admin: 11/02/17 10:27 Dose: 10,000 unit Gabapentin (Neurontin) 300 mg PO HS [facility] Last Admin: 11/01/17 22:43 Dose: 300 mg Heparin Sodium (Porcine) (Heparin) 5,000 units SC Q12 [facility] Last Admin: 11/02/17 10:52 Dose: Not Given Hydralazine HCl (Apresoline) 100 mg PO BID [facility] Last Admin: 11/02/17 10:52 Dose: Not Given Hydromorphone HCl (Dilaudid) 1 mg IVP Q6 PRN PRN Reason: Pain, moderate (4-7) Last Admin: 11/02/17 14:00 Dose: 1 mg Insulin Glargine (Lantus) 10 unit SC HS [facility] Last Admin: 11/01/17 22:40 Dose: 10 unit Insulin Human Regular (Novolin R) 0 unit SC ACHS [facility] PRN Reason: Protocol Last Admin: 11/02/17 12:45 Dose: Not Given Vitamin B Complex/Vit C/Folic Acid (Nephro-Courtney) 1 tab PO 0800 [facility] Last Admin: 11/02/17 08:02 Dose: 1 tab - Labs Labs: 11/01/17 14:06 11/01/17 14:06
[2017-11-02 15:57] VITALS: TEMP 98.2; O2SAT 99
[2017-11-02 18:29] VITALS: BP 98/52
--- NOTE | 2017-11-11 07:52 | DS ---
The patient came into the admitting room on 10/30/2017 complaining of chest pain and palpitation, and he is known to have a coronary artery disease, end-stage renal failure, hypertension, diabetes and on that day, his vital signs were okay. His blood pressure was 150/78, but his troponin was high, so he was kept admitted in the hospital and followed by me and Dr. Escobar as well as Dr. Galindo for dialysis. He was watched, and his enzymes were coming down. He was feeling gradually better and he was discharged on 11/02/2017. At that time, his medications to be continued at home. His hemoglobin when he came in was 7.2 and at discharge was 8.2. He was comfortable, stable, and there were no new complaints, to continue all his medications at home. FINAL DIAGNOSES: Coronary artery disease, congestive heart failure, end-stage renal failure, diabetes mellitus, depression, recurrent chest pain. Sybil Li MD
== END 2017-11-02 16:35 | disposition home or self-care (01) ==
LOC: C.ER 20:41 → OBSVTOIN 22:26 → INTOOBSV 22:26 → C.9E 22:26 → C.5S 10-31 17:55
PROVIDERS: ADMIT Internal Medicine; ATTEND Internal Medicine
PROC: 5A1D70Z Performance of Urinary Filtration, Intermittent, Less than 6 Hours Per Day (ICD-10-PCS; principal; 2017-10-31)
PROC: 5A1D70Z Performance of Urinary Filtration, Intermittent, Less than 6 Hours Per Day (ICD-10-PCS; 2017-11-02)
DX: I24.8 Other forms of acute ischemic heart disease (principal); I50.32 Chronic diastolic (congestive) heart failure; I13.2 Hypertensive heart and chronic kidney disease with heart failure and with stage 5 chronic kidney disease, or end stage renal disease; E11.22 Type 2 diabetes mellitus with diabetic chronic kidney disease; E11.51 Type 2 diabetes mellitus with diabetic peripheral angiopathy without gangrene; E11.65 Type 2 diabetes mellitus with hyperglycemia; I48.92 Unspecified atrial flutter; N18.6 End stage renal disease; G62.9 Polyneuropathy, unspecified; I48.0 Paroxysmal atrial fibrillation; J44.9 Chronic obstructive pulmonary disease, unspecified; I15.9 Secondary hypertension, unspecified; N25.81 Secondary hyperparathyroidism of renal origin; I25.110 Atherosclerotic heart disease of native coronary artery with unstable angina pectoris; E78.00 Pure hypercholesterolemia, unspecified; F64.9 Gender identity disorder, unspecified; F02.80 Dementia in other diseases classified elsewhere, unspecified severity, without behavioral disturbance, psychotic disturbance, mood disturbance, and anxiety; F32.9 Major depressive disorder, single episode, unspecified; F41.9 Anxiety disorder, unspecified; D64.9 Anemia, unspecified; E03.9 Hypothyroidism, unspecified; G30.9 Alzheimer's disease, unspecified; H54.8 Legal blindness, as defined in USA; G89.29 Other chronic pain; Z87.01 Personal history of pneumonia (recurrent); Z89.512 Acquired absence of left leg below knee; Z79.899 Other long term (current) drug therapy; Z99.2 Dependence on renal dialysis; Z95.1 Presence of aortocoronary bypass graft; Z87.891 Personal history of nicotine dependence; Z95.5 Presence of coronary angioplasty implant and graft; Z91.14 Patient's other noncompliance with medication regimen
CPT/HCPCS: 36415; 71045; 80053; 82948; 84484; 85025; 85027; 86850; 86870; 86900; 93005; 94640; 96372; 96374; 96376; 99285; G0378; J1170; J1644; Q4081

== ENCOUNTER 2017-11-07 11:45 | Observation (INO) | payer OTHER ==
[2017-11-07 11:45] VITALS: PULSE 66; BMI 18.8
--- NOTE | 2017-11-07 13:18 | C.PDOC ---
History Of Present Illness 37 y/o brought to ED by EMS for evaluation of nose bleed. Patient states homemaker went to home for check up, and noticed patient was bleeding, then called EMS. Patient did not know he was bleeding and denies any injury or difficulty breathing through nose. He does admit to SOB and states he missed dialysis today and reports last dialysis 11/02/17. Patient denies chest pain, weakness, dizziness, nausea or vomiting. Time Seen by Provider: 11/07/17 12:05 Chief Complaint (Nursing): ENT Problem History Per: Patient History/Exam Limitations: None Onset/Duration Of Symptoms: Hrs Current Symptoms Are (Timing): Still Present Past Medical History Reviewed: Historical Data, Nursing Documentation, Vital Signs Vital Signs: Last Vital Signs Temp 98.1 F 11/07/17 17:29 Pulse 79 11/07/17 17:29 Resp 19 11/07/17 17:29 BP 150/50 L 11/07/17 17:29 Pulse Ox 97 11/07/17 17:29 - Medical History PMH: Alzheimer's Disease, Anemia, Anxiety, Arthritis, Asthma, Atrial Fibrillation, Bronchitis, CAD, Cardia Arrhythmia, CHF, COPD, CVA, Depression, Diabetes, Deep Vein Thrombosis, Gastritis, Gastrointestinal Ulcer, Gall Bladder Disease, HTN, Hypercholesterolemia, Hypothyroidism, Pneumonia, End Stage Renal Disease, Chronic Kidney Disease, Seizures Surgical History: CABG (12/2009), Cholecystectomy (2011), Coronary Stent - [facility] (10/30/17) ABDOMINAL WALL SINOGRAM (12/31/13) C.A.T. SCAN OF ABDOMEN (10/31/13) CENTRAL VENOUS CATHETER PLACEMENT WITH GUIDANCE (02/10/15) CHANGE OTHER DEVICE IN TRUNK SUBCU/FASCIA, POCKET SETTER APPROACH (06/01/17) DILATE R ANT TIB ART W DRUG-ELUT INTRALUM, PERC (08/12/15) DILATION OF LEFT FEMORAL ARTERY, PERCUTANEOUS APPROACH (07/04/16) DILATION OF RIGHT FEMORAL ARTERY, PERCUTANEOUS APPROACH (08/12/15) DILATION OF RIGHT POPLITEAL ARTERY, PERCUTANEOUS APPROACH (08/12/15) DX ULTRASOUND-HEART (01/05/13) ENTERAL INFUSION OF CONCENTRATED NUT. SUBSTANCES (06/28/13) EXCIS DEBRIDE OF WOUND, INFECT, OR BURN (08/03/14) EXCISION OF STOMACH, ENDO, DIAGN (03/03/17) EXTIRPATION OF MATTER FROM L FEM ART, PERC APPROACH (07/04/16) EXTIRPATION OF MATTER FROM R FEM ART, PERC APPROACH (08/12/15) EXTIRPATION OF MATTER FROM R POPL ART, PERC APPROACH (08/12/15) FLUOROSCOPY OF L LOW EXTREM ART USING L OSM CONTRAST (08/12/15) FLUOROSCOPY OF R LOW EXTREM ART USING L OSM CONTRAST (08/12/15) FLUOROSCOPY OF RIGHT JUGULAR VEINS, GUIDANCE (06/01/17) FREE SKIN GRAFT NEC (08/03/14) HEAD SOFT TISS X-RAY NEC (04/15/13) HEMODIALYSIS (04/28/15) INCIS W REM OF FORIEGN BODY OR DEV FROM SKIN & SUBCUT TISSUE (08/08/13) INSERT INFUSION DEV IN R INT JUGULAR VEIN, PERC (06/01/17) INSERTION OF INFUSION DEV INTO R SUBCLAV VEIN, PERC APPROACH (01/19/16) INSERTION OF INFUSION DEV INTO SUP VENA CAVA, PERC APPROACH (05/17/17) INSPECTION OF UPPER INTESTINAL TRACT, ENDO (03/03/17) INTRODUCE OF OTH THROMBOLYTIC INTO PERIPH ART, PERC APPROACH (08/12/15) LAPAROSCOPIC CHOLECYSTECTOMY (09/21/13) LOC EXC LES METATAR/TAR (06/01/14) PACKED CELL TRANSFUSION (06/01/14) PERCUTAN LIVER ASPIRAT (12/31/13) PERFORMANCE OF URINARY FILTRATION, MULTIPLE (05/17/17) PERFORMANCE OF URINARY FILTRATION, SINGLE (12/18/16) SKIN & SUBQ INCISION NEC (10/24/14) TETANUS TOXOID ADMINIST (06/13/14) TRANSFUSE NONAUT RED BLOOD CELLS IN PERIPH VEIN, PERC (04/09/17) ULTRASONOGRAPHY OF RIGHT AND LEFT HEART (04/09/17) ULTRASONOGRAPHY OF SUPERIOR VENA CAVA, GUIDANCE (02/20/17) VENOUS CATHETERIZATION FOR RENAL DIALYSIS (08/08/13) VENOUS CATHETERIZATION NEC (04/30/13) Family History: States: No Known Family Hx - Social History Hx Tobacco Use: No Hx Alcohol Use: No Hx Substance Use: No - Immunization History Hx Tetanus Toxoid Vaccination: Yes Hx Influenza Vaccination: Yes Hx Pneumococcal Vaccination: Yes Review Of Systems Constitutional: Negative for: Fever, Chills ENT: Positive for: Nose Discharge Cardiovascular: Negative for: Chest Pain Respiratory: Positive for: Shortness of Breath. Negative for: Cough Gastrointestinal: Negative for: Nausea, Vomiting Neurological: Negative for: Dizziness Physical Exam - Physical Exam Appears: Non-toxic, No Acute Distress, Confused Skin: Warm, Dry, No Rash Head: Atraumatic, Normacephalic Eye(s): bilateral: Other (Blind) Nose: No Epistaxis, Other (Dried blood on right nare. No active bleeding) Oral Mucosa: Moist Neck: Normal ROM, Supple Chest: Symmetrical Cardiovascular: Rhythm Regular Respiratory: No Rales, Rhonchi (Bilateral), No Wheezing Gastrointestinal/Abdominal: Soft, No Tenderness, No Guarding, No Rebound Back: No CVA Tenderness Extremity: Other (Bilateral BKA) Neurological/Psych: Oriented x3 ED Course And Treatment - Laboratory Results Result Diagrams: 11/07/17 16:44 11/07/17 16:44 Lab Interpretation: Abnormal ECG: Interpreted By Me, Viewed By Me ECG Rhythm: Sinus Rhythm ECG Interpretation: No Acute Changes Interpretation Of ECG: NS at 73 bpm with nonspecific intraventricular block and Twave abnormality unchanged. Rate From EC O2 Sat by Pulse Oximetry: 100 (RA) Pulse Ox Interpretation: Normal - Other Rad CXR X-Ray: Viewed By Me, Read By Radiologist Interpretation: Creator : Von Garcia MD. Dictator : Von Garcia MD. Distilling Department Supervisor : Bilingual Account Manager : Von Garcia MD. Approver2 : Report Date : 11/07/2017 16:10:03. My Comment : . HISTORY: SOB. COMPARISON: Portable chest 10/22/2017. 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 Underlying infiltrate is not excluded the low mid to inferior left lung zone but none is seen the right. PLEURA: No significant pleural effusion identified, no pneumothorax apparent. CARDIOVASCULAR: Cardiomegaly is again evident with prominent pulmonary vascular markings compatible with pulmonary venous congestion. OSSEOUS STRUCTURES: No significant abnormalities. VISUALIZED UPPER ABDOMEN: Normal. OTHER FINDINGS: Sternotomy wires and right center venous dialysis catheter unchanged in position. IMPRESSION: Pulmonary suggestion pattern is increased. Underlying infiltrate is not seen in the mid to inferior left lung zones as discussed above. Medical Decision Making Medical Decision Making: Patient placed on O2 via nonrebreather. Patient has no active nose bleed during ED evaluation. He is in no acute distress. Patient is well known to ED, usually misses dialysis. Arrange for transportation for patient to have dialysis at his dialysis center ETA [phone]. spoke with international bank manager at [facility] [phone] and they accepted late arrival up to 1600. 1535 still no transportation has arrived. At this time will place orders and contact nephrology to have HD in hospital. Labs ordered and reviewed abnormal from ESRD Spoke with Dr Li who accepted patient to service. 1605 Call placed to nephrology no call back. 1730 Second call placed Patient was admitted and remained stable. Disposition - Disposition Disposition: HOSPITALIZED Disposition Time: 16:18 Condition: STABLE - POA Present On Arrival: None - Clinical Impression Clinical Impression: ESRD on hemodialysis, Epistaxis - PA / [employer] MANAGER / Resident Statement MD/DO has reviewed & agrees with the documentation as recorded. - Scribe Statement The provider has reviewed the documentation as recorded by the Marlonibrigoberto Tsai All medical record entries made by the Fabiola were at my direction and personally dictated by me. I have reviewed the chart and agree that the record accurately reflects my personal performance of the history, physical exam, medical decision making, and the department course for this patient. I have also personally directed, reviewed, and agree with the discharge instructions and disposition. Decision To Admit - Pt Status Changed To: Hospital Disposition Of: Observation - . Bed Request Type: Regular Admitting Physician: Sybil Li Patient Diagnosis: ESRD on hemodialysis, Epistaxis
--- NOTE | 2017-11-07 16:11 | RAD ---
HISTORY: SOB COMPARISON: Portable chest 10/22/2017. 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 Underlying infiltrate is not excluded the low mid to inferior left lung zone but none is seen the right. PLEURA: No significant pleural effusion identified, no pneumothorax apparent. CARDIOVASCULAR: Cardiomegaly is again evident with prominent pulmonary vascular markings compatible with pulmonary venous congestion. OSSEOUS STRUCTURES: No significant abnormalities. VISUALIZED UPPER ABDOMEN: Normal. OTHER FINDINGS: Sternotomy wires and right center venous dialysis catheter unchanged in position. IMPRESSION: Pulmonary suggestion pattern is increased. Underlying infiltrate is not seen in the mid to inferior left lung zones as discussed above.
--- NOTE | 2017-11-07 16:40 | CP.PCM.HP ---
History of Present Illness - History of Present Illness History of Present Illness: pt felt fever at home lower abd pain cough and missed dialysis Present on Admission - Present on Admission Any Indicators Present on Admission: Yes Review of Systems - Review of Systems Systems not reviewed;Unavailable: Acuity of Condition - Constitutional Constitutional: Anorexia, Fever - EENT Eyes: As Per HPI Ears: As Per HPI Nose/Mouth/Throat: As Per HPI - Cardiovascular Cardiovascular: Chest Pain at Rest, Dyspnea on Exertion - Respiratory Respiratory: Cough, Dyspnea, Wheezing - Genitourinary Genitourinary: Urinary Frequency - Musculoskeletal Musculoskeletal: Back Pain - Integumentary Integumentary: As Per HPI - Neurological Neurological: As Per HPI - Psychiatric Psychiatric: Depression - Endocrine Endocrine: Cold Intolorance Past Patient History - Infectious Disease Hx of Infectious Diseases: None - Tetanus Immunizations Tetanus Immunization: >10 years Ago - Past Medical History & Family History Past Medical History?: Yes - Past Social History Smoking Status: Former Smoker - CARDIAC Hx Atrial Fibrillation: Yes Hx Cardia Arrhythmia: Yes Hx Congestive Heart Failure: Yes Hx Hypercholesterolemia: Yes Hx Hypertension: Yes - PULMONARY Hx Asthma: Yes Hx Bronchitis: Yes Hx Chronic Obstructive Pulmonary Disease (COPD): Yes Hx Pneumonia: Yes - NEUROLOGICAL Hx Alzheimer's Disease: Yes Hx Seizures: Yes - HEENT Hx HEENT Problems: Yes Hx Blind: Yes (legally blind) Hx Cataracts: Yes - RENAL Hx Chronic Kidney Disease: Yes - ENDOCRINE/METABOLIC Hx Hypothyroidism: Yes - HEMATOLOGICAL/ONCOLOGICAL Hx Anemia: Yes - INTEGUMENTARY Hx Dermatological Problems: No - MUSCULOSKELETAL/RHEUMATOLOGICAL Hx Arthritis: Yes - GASTROINTESTINAL Hx Gall Bladder Disease: Yes Hx Gastritis: Yes - GENITOURINARY/GYNECOLOGICAL Hx Sexually Transmitted Disorders: No - PSYCHIATRIC Hx Anxiety: Yes Hx Depression: Yes Hx Substance Use: No - SURGICAL HISTORY Hx Cholecystectomy: Yes (2011) 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/2009) Hx Coronary Stent: Yes - ANESTHESIA Hx Anesthesia: Yes Hx Anesthesia Reactions: No Hx Malignant Hyperthermia: No Meds Allergies/Adverse Reactions: Allergies Allergy/AdvReac Type Severity Reaction Status Date / Time acetaminophen [From Percocet] Allergy RASH Verified 11/07/17 12:08 atenolol Allergy RASH Verified 11/07/17 12:08 digoxin Allergy RASH Verified 11/07/17 12:08 milk Allergy ITCHING Verified 11/07/17 12:08 morphine Allergy RASH Verified 11/07/17 12:08 oxycodone HCl [From Percocet] Allergy RASH Verified 11/07/17 12:08 Physical Exam - Constitutional Appears: In Acute Distress - Head Exam Head Exam: ATRAUMATIC - Eye Exam Eye Exam: Conjunctival injection - ENT Exam ENT Exam: Mucous Membranes Dry Additional comments: nasal bleeding - Neck Exam Neck exam: Positive for: Full Rom - Respiratory Exam Respiratory Exam: Decreased Breath Sounds - Cardiovascular Exam Cardiovascular Exam: REGULAR RHYTHM - GI/Abdominal Exam GI & Abdominal Exam: Tenderness Additional comments: lower abd - Rectal Exam Rectal Exam: Deferred - Extremities Exam Additional comments: bilateral amputation Results - Vital Signs Recent Vital Signs: Last Vital Signs Temp 97.9 F 11/07/17 11:50 Pulse 80 11/07/17 11:50 Resp 21 11/07/17 12:29 BP 241/98 H 11/07/17 11:50 Pulse Ox 100 11/07/17 15:36 Assessment & Plan - Assessment and Plan (Free Text) Assessment: ac fever nasal bleeding pelvic pain dm esrf htn Plan: ent consultation and as per orders - Date & Time Date: 11/07/17 Time: 16:44
[2017-11-07] MEDS ORDERED: Ergocalciferol 50,000 Intl Units Cap PO SCH (16:45)
[2017-11-07] MEDS ORDERED: Pantoprazole 20 mg EC Tab PO SCH (16:45)
[2017-11-07 16:47] LABS: BASO # 0.1 K/uL (0.0-0.2); BASO % 0.5 % (0.0-2.0); EOS # 0.6 K/uL (0.0-0.7); EOS % 4.1 % (0.0-4.0); HEMOGLOBIN 9.1 g/dL (12.0-18.0); LYMPH # 3.1 K/uL (1.0-4.3); LYMPH % 22.9 % (20.0-40.0); MEAN CELL VOLUME 97.9 fL (80.0-94.0); MEAN CORPUSCULAR HEMOGLOBIN 32.8 pg (27.0-31.0); MEAN CORPUSCULAR HGB CONC 33.5 g/dL (33.0-37.0); MEAN PLATELET VOLUME 8.9 fL (7.2-11.7); MONO # 0.7 K/uL (0.0-0.8); NEUT % 67.5 % (50.0-75.0); RBC 2.79 Mil/uL (4.40-5.90); WHITE BLOOD COUNT 13.4 K/uL (4.8-10.8)
[2017-11-07 17:54] LABS: ALB/GLOB RATIO 1.1 (1.0-2.1); ALBUMIN 4.1 g/dL (3.5-5.0); CALCIUM 9.2 mg/dl (8.6-10.4)
[2017-11-07] MEDS: Epoetin Alfa 10,000 unit/ml Dialysis IV SCH (21:38)
[2017-11-07] MEDS ORDERED: (Lantus) Insulin Glargine, Recombinant SC SCH (22:00)
[2017-11-07] MEDS: Albuterol-Ipratrop 3 mg / 0.5 (3 ml) UD INH SCH (23:16)
[2017-11-07] MEDS: Albuterol-Ipratrop 3 mg / 0.5 (3 ml) UD IH SCH (23:16)
--- NOTE | 2017-11-07 23:33 | US ---
EXAM: US Bladder EXAM DATE/TIME: 11/07/2017 5:14 PM CLINICAL HISTORY: 37 years old, male; Pain; renal failure on dialysis TECHNIQUE: Real-time ultrasound of the bladder with image documentation. COMPARISON: There are no prior studies for comparison. FINDINGS: Partially distended bladder has estimated volume approximately 297 cc. There is mild bladder wall thickening. Ureteral jets were not identified on color imaging. Patient was unable to void. Prostate is not optimally visualized. IMPRESSION: Bladder volume approximately 297 cc with mild bladder wall thickening
[2017-11-08] MEDS: Albuterol-Ipratrop 3 mg / 0.5 (3 ml) UD IH SCH ×4 (01:29→23:51)
[2017-11-08] MEDS: Albuterol-Ipratrop 3 mg / 0.5 (3 ml) UD INH SCH ×3 (01:30→21:01)
[2017-11-08] MEDS: (Novolin R) Insulin Human Regular 100 units/ml vial SC SCH ×4 (08:01→22:04)
[2017-11-08] MEDS: Multivitamin Vitamin B Complex (Nephro-Vite) Tab PO SCH (08:25)
[2017-11-08] MEDS: Ranolazine 500 mg Extended Release Tablets PO SCH ×2 (09:28→18:25)
[2017-11-08] MEDS: Pantoprazole 40 mg EC Tab PO SCH (09:28)
[2017-11-08] MEDS: Valproic Acid 250 mg/5 ml UD Cup PO SCH ×4 (09:30→22:07)
--- NOTE | 2017-11-08 10:26 | CP.PCM.PN ---
Subjective - Date & Time of Evaluation Date of Evaluation: 11/08/17 Time of Evaluation: 10:23 - Subjective Subjective: pt has no mor nasal bleeding cheast pain less Objective - Vital Signs/Intake and Output Vital Signs (last 24 hours): Temp Pulse Resp BP Pulse Ox 98 F 75 20 127/51 L 95 11/08/17 04:20 11/08/17 04:20 11/08/17 04:20 11/08/17 04:20 11/08/17 04:20 Intake and Output: 11/08/17 11/08/17 06:59 18:59 Intake Total 118 Balance 118 - Medications Medications: Current Medications Albuterol/Ipratropium (Duoneb 3 Mg/0.5 Mg (3 Ml) Ud) 3 ml IH RQ4 [facility] Last Admin: 11/08/17 07:27 Dose: Not Given Albuterol/Ipratropium (Duoneb 3 Mg/0.5 Mg (3 Ml) Ud) 3 ml INH RQ6 [facility] Last Admin: 11/08/17 07:27 Dose: Not Given Amiodarone HCl (Cordarone) 200 mg PO DAILY [facility] Last Admin: 11/08/17 09:30 Dose: 200 mg Amlodipine Besylate (Norvasc) 10 mg PO DAILY [facility] Last Admin: 11/08/17 09:30 Dose: 10 mg Bacitracin (Bacitracin) 0 gm TOP BID [facility] Calcium Carbonate (Oscal) 500 mg PO BID [facility] Last Admin: 11/08/17 09:29 Dose: 500 mg Carvedilol (Coreg) 25 mg PO BID [facility] Clonidine HCl (Catapres-Tts3 0.3 Mg/24 Hr) 1 patch TD Q7D@1000 [facility] Epoetin Tom (Procrit) 10,000 unit IV TTS [facility] Stop: 11/12/17 10:01 Last Admin: 11/07/17 21:38 Dose: 10,000 unit Ergocalciferol (Drisdol 50,000 Intl Units Cap) 1 cap PO Q7D [facility] Heparin Sodium (Porcine) (Heparin) 3,700 units IVP TTS [facility] Stop: 11/12/17 10:01 Last Admin: 11/07/17 22:07 Dose: 3,700 units Hydromorphone HCl (Dilaudid) 1 mg IVP Q6 PRN PRN Reason: Pain, severe (8-10) Last Admin: 11/08/17 09:24 Dose: 1 mg Insulin Glargine (Lantus) 10 unit SC [facility] Insulin Human Regular (Novolin R) 0 unit SC [facility] COUNT INCLUDES [facility] PRN Reason: Protocol Last Admin: 11/08/17 08:01 Dose: 4 unit Isosorbide Mononitrate (Imdur) 60 mg PO DAILY [facility] Last Admin: 11/08/17 09:29 Dose: 60 mg Levetiracetam (Keppra) 500 mg PO BID [facility] Last Admin: 11/08/17 09:27 Dose: 500 mg Montelukast Sodium (Singulair) 10 mg PO DAILY [facility] Last Admin: 11/08/17 00:43 Dose: 10 mg Pantoprazole Sodium (Protonix Ec Tab) 40 mg PO DAILY [facility] Last Admin: 11/08/17 09:28 Dose: 40 mg Ranolazine (Ranexa) 500 mg PO BID [facility] Last Admin: 11/08/17 09:28 Dose: 500 mg Rosuvastatin Calcium (Crestor) 10 mg PO [facility] Sertraline HCl (Zoloft) 50 mg PO DAILY [facility] Last Admin: 11/08/17 09:26 Dose: 50 mg Valproate Sodium (Depakene Oral Soln) 250 mg PO QID [facility] Last Admin: 11/08/17 09:30 Dose: 250 mg Vitamin B Complex/Vit C/Folic Acid (Nephro-Courtney) 1 tab PO 0800 [facility] Last Admin: 11/08/17 08:25 Dose: 1 tab - Labs Labs: 11/07/17 16:44 11/07/17 16:44 - Constitutional Appears: Non-toxic - Head Exam Head Exam: ATRAUMATIC - Eye Exam Eye Exam: Conjunctival injection - ENT Exam ENT Exam: Normal Oropharynx - Neck Exam Neck Exam: Full ROM - Respiratory Exam Respiratory Exam: Decreased Breath Sounds - Cardiovascular Exam Cardiovascular Exam: REGULAR RHYTHM - GI/Abdominal Exam GI & Abdominal Exam: Normal Bowel Sounds - Rectal Exam Rectal Exam: NORMAL INSPECTION - Psychiatric Exam Psychiatric exam: Normal Affect - Skin Skin Exam: Pallor Assessment and Plan - Assessment and Plan (Free Text) Assessment: ac nasal bleeding infection dm esrf htn Plan: as per orders
--- NOTE | 2017-11-08 12:36 | CON ---
DATE: 11/08/2017. REASON FOR CONSULTATION: Epistaxis. REQUESTING PHYSICIAN: Dr. Celis. HISTORY: This is a 37-year-old male with one-day history of epistaxis on the right on and off, mild, which had subsided. The patient has not bled since yesterday, only bled once yesterday, it was on the right side. No nasal congestion. PAST MEDICAL HISTORY: As noted in the chart by me. MEDICATIONS: As noted in the chart by me. PHYSICAL EXAMINATION: HEAD: Atraumatic and normocephalic. FACE: Good facial movements bilaterally. CONSTITUTIONAL: Well fed, well nourished. COMMUNICATION: Communicates well and appropriately. EXTERNAL NOSE AND EARS: No masses. No lesions. No erythema. No edema. INTERNAL NOSE AND EARS: Deviated septum. No masses. No lesions. No erythema. No edema. No bleeding. LIPS AND GUMS: No masses. No lesions. No erythema. No edema. ORAL CAVITY AND OROPHARYNX: No masses. No lesions. No erythema. No edema. Positive postnasal drip. NECK: Supple. THYROID: No thyromegaly. No goiter. LYMPH NODES: No lymphadenopathy of the neck. ASSESSMENT: 1. Epistaxis has resolved. 2. Deviated septum. PLAN: Bacitracin ointment to the nose and nasal saline sprays recommended. not recommended at this time since the patient is not actively bleeding and has not bled in one day. Aurelio Hidalgo MD
--- NOTE | 2017-11-08 15:34 | CP.PCM.CON ---
History of Present Illness - History of Present Illness History of Present Illness: pt seen and examined extra HD today routine session tomorrow Past Patient History - Infectious Disease Hx of Infectious Diseases: None - Tetanus Immunizations Tetanus Immunization: >10 years Ago - Past Medical History & Family History Past Medical History?: Yes - Past Social History Smoking Status: Former Smoker - CARDIAC Hx Atrial Fibrillation: Yes Hx Cardia Arrhythmia: Yes Hx Congestive Heart Failure: Yes Hx Hypercholesterolemia: Yes Hx Hypertension: Yes - PULMONARY Hx Asthma: Yes Hx Bronchitis: Yes Hx Chronic Obstructive Pulmonary Disease (COPD): Yes Hx Pneumonia: Yes - NEUROLOGICAL Hx Alzheimer's Disease: Yes Hx Seizures: Yes - HEENT Hx HEENT Problems: Yes Hx Blind: Yes (legally blind) Hx Cataracts: Yes - RENAL Hx Chronic Kidney Disease: Yes - ENDOCRINE/METABOLIC Hx Hypothyroidism: Yes - HEMATOLOGICAL/ONCOLOGICAL Hx Anemia: Yes - INTEGUMENTARY Hx Dermatological Problems: No - MUSCULOSKELETAL/RHEUMATOLOGICAL Hx Arthritis: Yes - GASTROINTESTINAL Hx Gall Bladder Disease: Yes Hx Gastritis: Yes - GENITOURINARY/GYNECOLOGICAL Hx Sexually Transmitted Disorders: No - PSYCHIATRIC Hx Anxiety: Yes Hx Depression: Yes Hx Substance Use: No - SURGICAL HISTORY Hx Cholecystectomy: Yes (2011) 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/2009) Hx Coronary Stent: Yes - ANESTHESIA Hx Anesthesia: Yes Hx Anesthesia Reactions: No Hx Malignant Hyperthermia: No Meds Allergies/Adverse Reactions: Allergies Allergy/AdvReac Type Severity Reaction Status Date / Time acetaminophen [From Percocet] Allergy RASH Verified 11/07/17 12:08 atenolol Allergy RASH Verified 11/07/17 12:08 digoxin Allergy RASH Verified 11/07/17 12:08 milk Allergy ITCHING Verified 11/07/17 12:08 morphine Allergy RASH Verified 11/07/17 12:08 oxycodone HCl [From Percocet] Allergy RASH Verified 11/07/17 12:08 - Medications Medications: Current Medications Albuterol/Ipratropium (Duoneb 3 Mg/0.5 Mg (3 Ml) Ud) 3 ml IH RQ4 [facility] Last Admin: 11/08/17 07:27 Dose: Not Given Albuterol/Ipratropium (Duoneb 3 Mg/0.5 Mg (3 Ml) Ud) 3 ml INH RQ6 [facility] Last Admin: 11/08/17 07:27 Dose: Not Given Amiodarone HCl (Cordarone) 200 mg PO DAILY [facility] Last Admin: 11/08/17 09:30 Dose: 200 mg Amlodipine Besylate (Norvasc) 10 mg PO DAILY [facility] Last Admin: 11/08/17 09:30 Dose: 10 mg Bacitracin (Bacitracin) 0 gm TOP BID [facility] Calcium Carbonate (Oscal) 500 mg PO BID [facility] Last Admin: 11/08/17 09:29 Dose: 500 mg Carvedilol (Coreg) 25 mg PO BID [facility] Last Admin: 11/08/17 09:30 Dose: 25 mg Clonidine HCl (Catapres-Tts3 0.3 Mg/24 Hr) 1 patch TD Q7D@1000 [facility] Epoetin Tom (Procrit) 10,000 unit IV TTS [facility] Stop: 11/12/17 10:01 Last Admin: 11/07/17 21:38 Dose: 10,000 unit Ergocalciferol (Drisdol 50,000 Intl Units Cap) 1 cap PO Q7D [facility] Heparin Sodium (Porcine) (Heparin) 3,700 units IVP TTS [facility] Stop: 11/12/17 10:01 Last Admin: 11/07/17 22:07 Dose: 3,700 units Hydromorphone HCl (Dilaudid) 1 mg IVP Q6 PRN PRN Reason: Pain, severe (8-10) Last Admin: 11/08/17 09:24 Dose: 1 mg Insulin Glargine (Lantus) 10 unit SC HS [facility] Insulin Human Regular (Novolin R) 0 unit SC ACHS [facility] PRN Reason: Protocol Last Admin: 11/08/17 12:17 Dose: Not Given Isosorbide Mononitrate (Imdur) 60 mg PO DAILY [facility] Last Admin: 11/08/17 09:29 Dose: 60 mg Levetiracetam (Keppra) 500 mg PO BID [facility] Last Admin: 11/08/17 09:27 Dose: 500 mg Montelukast Sodium (Singulair) 10 mg PO DAILY [facility] Last Admin: 11/08/17 09:30 Dose: 10 mg Pantoprazole Sodium (Protonix Ec Tab) 40 mg PO DAILY [facility] Last Admin: 11/08/17 09:28 Dose: 40 mg Ranolazine (Ranexa) 500 mg PO BID [facility] Last Admin: 11/08/17 09:28 Dose: 500 mg Rosuvastatin Calcium (Crestor) 10 mg PO [facility] Sertraline HCl (Zoloft) 50 mg PO DAILY [facility] Last Admin: 11/08/17 09:26 Dose: 50 mg Valproate Sodium (Depakene Oral Soln) 250 mg PO QID [facility] Last Admin: 11/08/17 14:14 Dose: 250 mg Vitamin B Complex/Vit C/Folic Acid (Nephro-Courtney) 1 tab PO 0800 [facility] Last Admin: 11/08/17 08:25 Dose: 1 tab Results - Vital Signs Recent Vital Signs: Last Vital Signs Temp 98 F 11/08/17 14:55 Pulse 67 11/08/17 14:55 Resp 20 11/08/17 14:55 BP 176/64 H 11/08/17 15:25 Pulse Ox 100 11/08/17 14:55 - Labs Result Diagrams: 11/07/17 16:44 11/07/17 16:44 Labs: Laboratory Results - last 24 hr 11/07/17 11/07/17 11/07/17 16:44 16:44 22:19 WBC 13.4 H RBC 2.79 L Hgb 9.1 L Hct 27.3 L MCV 97.9 H MCH 32.8 H MCHC 33.5 RDW 17.0 H Plt Count 269 MPV 8.9 Neut % (Auto) 67.5 Lymph % (Auto) 22.9 [place] % (Auto) 5.0 Eos % (Auto) 4.1 H Baso % (Auto) 0.5 Neut # (Auto) 9.0 H Lymph # (Auto) 3.1 [place] # (Auto) 0.7 Eos # (Auto) 0.6 Baso # (Auto) 0.1 Sodium 136 Potassium 6.6 H* D Chloride 96 L Carbon Dioxide 20 L Anion Gap 28 H BUN 115 H* D Creatinine 9.9 H* D Est GFR ( Amer) 7 Est GFR (Non-Af Amer) 6 POC Glucose (mg/dL) 153 H Random Glucose 154 H Calcium 9.2 Total Bilirubin 0.5 AST 14 L ALT 7 L D Alkaline Phosphatase 292 H D Total Protein 7.7 Albumin 4.1 Globulin 3.6 Albumin/Globulin Ratio 1.1 11/08/17 11/08/17 06:18 11:17 WBC RBC Hgb Hct MCV MCH MCHC RDW Plt Count MPV Neut % (Auto) Lymph % (Auto) [place] % (Auto) Eos % (Auto) Baso % (Auto) Neut # (Auto) Lymph # (Auto) [place] # (Auto) Eos # (Auto) Baso # (Auto) Sodium Potassium Chloride Carbon Dioxide Anion Gap BUN Creatinine Est GFR ( Amer) Est GFR (Non-Af Amer) POC Glucose (mg/dL) 250 H 134 H Random Glucose Calcium Total Bilirubin AST ALT Alkaline Phosphatase Total Protein Albumin Globulin Albumin/Globulin Ratio
[2017-11-08] MEDS: Bacitracin Ointment 30 GM TUBE TOP SCH (18:25)
[2017-11-09] MEDS: Albuterol-Ipratrop 3 mg / 0.5 (3 ml) UD INH SCH ×2 (02:15→14:02)
[2017-11-09] MEDS: Albuterol-Ipratrop 3 mg / 0.5 (3 ml) UD IH SCH ×2 (04:50→08:24)
[2017-11-09] MEDS: (Novolin R) Insulin Human Regular 100 units/ml vial SC SCH ×3 (08:18→18:00)
[2017-11-09] MEDS: Multivitamin Vitamin B Complex (Nephro-Vite) Tab PO SCH (08:18)
[2017-11-09] MEDS: Epoetin Alfa 10,000 unit/ml Dialysis IV SCH (09:48)
[2017-11-09 10:10] VITALS: RESP 18
[2017-11-09 10:12] VITALS: O2SAT 100
[2017-11-09 10:22] LABS: BASO # 0.1 K/uL (0.0-0.2); BASO % 0.6 % (0.0-2.0); EOS # 0.5 K/uL (0.0-0.7); EOS % 5.3 % (0.0-4.0); HEMOGLOBIN 9.4 g/dL (12.0-18.0); LYMPH # 2.2 K/uL (1.0-4.3); LYMPH % 22.6 % (20.0-40.0); MEAN CELL VOLUME 98.4 fL (80.0-94.0); MEAN CORPUSCULAR HGB CONC 32.5 g/dL (33.0-37.0); MEAN PLATELET VOLUME 8.7 fL (7.2-11.7); MONO # 0.9 K/uL (0.0-0.8); NEUT # 6.2 K/uL (1.8-7.0); NEUT % 62.5 % (50.0-75.0); NRBC % 0.1 % (0.0-2.0); RBC 2.93 Mil/uL (4.40-5.90); RED CELL DISTRIBUTION WIDTH 17.2 % (11.5-14.5); WHITE BLOOD COUNT 9.9 K/uL (4.8-10.8)
--- NOTE | 2017-11-09 11:12 | CP.PCM.PN ---
Subjective - Date & Time of Evaluation Date of Evaluation: 11/09/17 Time of Evaluation: 11:10 - Subjective Subjective: feels beter no nasal bleedind no sob having dialysis Objective - Vital Signs/Intake and Output Vital Signs (last 24 hours): Temp Pulse Resp BP Pulse Ox 97.4 F L 63 18 134/94 H 100 11/09/17 09:00 11/09/17 09:00 11/09/17 09:00 11/09/17 10:30 11/09/17 09:00 Intake and Output: 11/09/17 11/09/17 06:59 18:59 Intake Total 260 Balance 260 - Medications Medications: Current Medications Albuterol/Ipratropium (Duoneb 3 Mg/0.5 Mg (3 Ml) Ud) 3 ml IH RQ4 [facility] Last Admin: 11/09/17 08:24 Dose: Not Given Albuterol/Ipratropium (Duoneb 3 Mg/0.5 Mg (3 Ml) Ud) 3 ml INH RQ6 [facility] Last Admin: 11/09/17 02:15 Dose: 3 ml Amiodarone HCl (Cordarone) 200 mg PO DAILY [facility] Last Admin: 11/08/17 09:30 Dose: 200 mg Amlodipine Besylate (Norvasc) 10 mg PO DAILY [facility] Last Admin: 11/08/17 09:30 Dose: 10 mg Bacitracin (Bacitracin) 0 gm TOP BID [facility] Last Admin: 11/08/17 18:25 Dose: 1 applic Calcium Carbonate (Oscal) 500 mg PO BID [facility] Last Admin: 11/08/17 18:24 Dose: 500 mg Carvedilol (Coreg) 25 mg PO BID [facility] Last Admin: 11/08/17 18:26 Dose: 25 mg Clonidine HCl (Catapres-Tts3 0.3 Mg/24 Hr) 1 patch TD Q7D@1000 [facility] Epoetin Tom (Procrit) 10,000 unit IV TTS [facility] Stop: 11/12/17 10:01 Last Admin: 11/09/17 09:48 Dose: 10,000 unit Ergocalciferol (Drisdol 50,000 Intl Units Cap) 1 cap PO Q7D [facility] Heparin Sodium (Porcine) (Heparin) 3,700 units IVP TTS [facility] Stop: 11/12/17 10:01 Last Admin: 11/09/17 10:17 Dose: 3,700 units Hydromorphone HCl (Dilaudid) 1 mg IVP Q6 PRN PRN Reason: Pain, severe (8-10) Last Admin: 11/09/17 04:07 Dose: 1 mg Insulin Glargine (Lantus) 10 unit SC [facility] Last Admin: 11/08/17 22:07 Dose: 10 units Insulin Human Regular (Novolin R) 0 unit SC [facility] PRN Reason: Protocol Last Admin: 11/09/17 08:18 Dose: 3 unit Isosorbide Mononitrate (Imdur) 60 mg PO DAILY [facility] Last Admin: 11/08/17 09:29 Dose: 60 mg Levetiracetam (Keppra) 500 mg PO BID [facility] Last Admin: 11/08/17 18:24 Dose: 500 mg Montelukast Sodium (Singulair) 10 mg PO DAILY [facility] Last Admin: 11/08/17 09:30 Dose: 10 mg Pantoprazole Sodium (Protonix Ec Tab) 40 mg PO DAILY [facility] Last Admin: 11/08/17 09:28 Dose: 40 mg Ranolazine (Ranexa) 500 mg PO BID [facility] Last Admin: 11/08/17 18:25 Dose: 500 mg Rosuvastatin Calcium (Crestor) 10 mg PO [facility] Last Admin: 11/08/17 22:07 Dose: 10 mg Sertraline HCl (Zoloft) 50 mg PO DAILY [facility] Last Admin: 11/08/17 09:26 Dose: 50 mg Valproate Sodium (Depakene Oral Soln) 250 mg PO QID [facility] Last Admin: 11/08/17 22:07 Dose: 250 mg Vitamin B Complex/Vit C/Folic Acid (Nephro-Courtney) 1 tab PO 0800 [facility] Last Admin: 11/09/17 08:18 Dose: 1 tab - Labs Labs: 11/09/17 10:16 11/07/17 16:44 - Constitutional Appears: Non-toxic - Head Exam Head Exam: NORMAL INSPECTION - Eye Exam Eye Exam: Conjunctival injection - ENT Exam ENT Exam: Mucous Membranes Dry - Neck Exam Neck Exam: Full ROM - Respiratory Exam Respiratory Exam: Decreased Breath Sounds - Cardiovascular Exam Cardiovascular Exam: REGULAR RHYTHM - GI/Abdominal Exam GI & Abdominal Exam: Normal Bowel Sounds - Rectal Exam Rectal Exam: NORMAL INSPECTION - Back Exam Back Exam: NORMAL INSPECTION - Neurological Exam Neurological Exam: Awake, Oriented x3 - Psychiatric Exam Psychiatric exam: Normal Affect - Skin Skin Exam: Pallor Assessment and Plan - Assessment and Plan (Free Text) Assessment: s/p ac nasal bkeeding cad esrf dm Plan: stable will d/c home
--- NOTE | 2017-11-09 11:45 | CARD ---
APPROVED REPORT EKG Measurement Heart [id number] <Conclusion> Normal sinus rhythm LVH with repolarization abnormality and QRS widening T wave abnormality, consider lateral ischemia and / or LVH Abnormal ECG
[2017-11-09] MEDS: Pantoprazole 40 mg EC Tab PO SCH (13:53)
[2017-11-09] MEDS: Ranolazine 500 mg Extended Release Tablets PO SCH ×2 (13:55→13:56)
[2017-11-09] MEDS: Valproic Acid 250 mg/5 ml UD Cup PO SCH ×2 (13:56→13:57)
[2017-11-09] MEDS: Bacitracin Ointment 30 GM TUBE TOP SCH ×2 (13:57→18:00)
--- NOTE | 2017-11-09 15:21 | CP.PCM.PN ---
Subjective - Date & Time of Evaluation Date of Evaluation: 11/09/17 Time of Evaluation: 15:20 - Subjective Subjective: PT SEEN AND EXAMINED TODAY, RESP EASY AND UNLABORED. NAD Objective - Vital Signs/Intake and Output Vital Signs (last 24 hours): Temp Pulse Resp BP Pulse Ox 95.4 F L 57 L 18 115/55 L 100 11/09/17 12:00 11/09/17 12:00 11/09/17 12:00 11/09/17 13:53 11/09/17 12:00 Intake and Output: 11/09/17 11/09/17 06:59 18:59 Intake Total 260 Balance 260 - Medications Medications: Current Medications Albuterol/Ipratropium (Duoneb 3 Mg/0.5 Mg (3 Ml) Ud) 3 ml IH RQ4 [facility] Last Admin: 11/09/17 08:24 Dose: Not Given Albuterol/Ipratropium (Duoneb 3 Mg/0.5 Mg (3 Ml) Ud) 3 ml INH RQ6 [facility] Last Admin: 11/09/17 14:02 Dose: 3 ml Amiodarone HCl (Cordarone) 200 mg PO DAILY [facility] Last Admin: 11/09/17 13:52 Dose: 200 mg Amlodipine Besylate (Norvasc) 10 mg PO DAILY [facility] Last Admin: 11/09/17 13:52 Dose: 10 mg Bacitracin (Bacitracin) 0 gm TOP BID [facility] Last Admin: 11/09/17 13:57 Dose: 1 applic Calcium Carbonate (Oscal) 500 mg PO BID [facility] Last Admin: 11/09/17 13:54 Dose: 500 mg Carvedilol (Coreg) 25 mg PO BID [facility] Last Admin: 11/09/17 13:53 Dose: Not Given Clonidine HCl (Catapres-Tts3 0.3 Mg/24 Hr) 1 patch TD Q7D@1000 [facility] Epoetin Tom (Procrit) 10,000 unit IV TTS [facility] Stop: 11/12/17 10:01 Last Admin: 11/09/17 09:48 Dose: 10,000 unit Ergocalciferol (Drisdol 50,000 Intl Units Cap) 1 cap PO Q7D [facility] Heparin Sodium (Porcine) (Heparin) 3,700 units IVP TTS [facility] Stop: 11/12/17 10:01 Last Admin: 11/09/17 10:17 Dose: 3,700 units Hydromorphone HCl (Dilaudid) 1 mg IVP Q6 PRN PRN Reason: Pain, severe (8-10) Last Admin: 11/09/17 10:20 Dose: 1 mg Insulin Glargine (Lantus) [address] [facility] Last Admin: 11/08/17 22:07 Dose: 10 units Insulin Human Regular (Novolin R) 0 unit SC [facility] PRN Reason: Protocol Last Admin: 11/09/17 13:58 Dose: Not Given Isosorbide Mononitrate (Imdur) 60 mg PO DAILY [facility] Last Admin: 11/09/17 13:53 Dose: 60 mg Levetiracetam (Keppra) 500 mg PO BID [facility] Last Admin: 11/09/17 13:51 Dose: 500 mg Montelukast Sodium (Singulair) 10 mg PO DAILY [facility] Last Admin: 11/09/17 14:00 Dose: 10 mg Pantoprazole Sodium (Protonix Ec Tab) 40 mg PO DAILY [facility] Last Admin: 11/09/17 13:53 Dose: 40 mg Ranolazine (Ranexa) 500 mg PO BID [facility] Last Admin: 11/09/17 13:56 Dose: Not Given Rosuvastatin Calcium (Crestor) [address] [facility] Last Admin: 11/08/17 22:07 Dose: 10 mg Sertraline HCl (Zoloft) 50 mg PO DAILY [facility] Last Admin: 11/09/17 13:54 Dose: 50 mg Valproate Sodium (Depakene Oral Soln) 250 mg PO QID [facility] Last Admin: 11/09/17 13:57 Dose: Not Given Vitamin B Complex/Vit C/Folic Acid (Nephro-Courtney) 1 tab PO 0800 [facility] Last Admin: 11/09/17 08:18 Dose: 1 tab - Labs Labs: 11/09/17 10:16 11/07/17 16:44 Assessment and Plan - Assessment and Plan (Free Text) Plan: PT CLEARED FOR DISCHARGE TOLERATED HD F/U WITH PMD
[2017-11-09 17:59] VITALS: BP 103/69; PULSE 76; TEMP 98
== END 2017-11-09 19:20 | disposition home or self-care (01) ==
LOC: C.ER 11:45 → C.9E 16:03 → C.6T 16:34
PROVIDERS: ADMIT Internal Medicine; ATTEND Internal Medicine
DX: R04.0 Epistaxis (principal); Z99.2 Dependence on renal dialysis; N18.6 End stage renal disease; Z91.15 Patient's noncompliance with renal dialysis; Z87.11 Personal history of peptic ulcer disease; Z86.73 Personal history of transient ischemic attack (TIA), and cerebral infarction without residual deficits; J44.9 Chronic obstructive pulmonary disease, unspecified; I50.9 Heart failure, unspecified; I13.2 Hypertensive heart and chronic kidney disease with heart failure and with stage 5 chronic kidney disease, or end stage renal disease; I48.91 Unspecified atrial fibrillation; I25.10 Atherosclerotic heart disease of native coronary artery without angina pectoris; F02.80 Dementia in other diseases classified elsewhere, unspecified severity, without behavioral disturbance, psychotic disturbance, mood disturbance, and anxiety; G30.9 Alzheimer's disease, unspecified; E78.00 Pure hypercholesterolemia, unspecified; E11.22 Type 2 diabetes mellitus with diabetic chronic kidney disease; E03.9 Hypothyroidism, unspecified; R56.9 Unspecified convulsions; M19.90 Unspecified osteoarthritis, unspecified site; F41.9 Anxiety disorder, unspecified; F32.9 Major depressive disorder, single episode, unspecified; D64.9 Anemia, unspecified; Z95.5 Presence of coronary angioplasty implant and graft; Z95.1 Presence of aortocoronary bypass graft; Z87.891 Personal history of nicotine dependence; H54.8 Legal blindness, as defined in USA; Z88.8 Allergy status to other drugs, medicaments and biological substances; Z91.011 Allergy to milk products; Z88.5 Allergy status to narcotic agent; R10.2 Pelvic and perineal pain; J34.2 Deviated nasal septum
CPT/HCPCS: 36415; 71045; 76856; 80053; 82948; 85025; 90970; 93005; 94640; 94760; 99285; G0257; G0378; J1170; J1644; J2405; Q4081

== ENCOUNTER 2017-11-14 16:07 | Inpatient (IN) | payer OTHER ==
[2017-11-14 16:08] VITALS: PULSE 66; BMI 18.8
--- NOTE | 2017-11-14 16:51 | C.PDOC ---
Chief Complaint (Nursing): Syncope Past Medical History Vital Signs: Last Vital Signs Temp 98.1 F 11/14/17 16:18 Pulse 68 11/14/17 16:42 Resp 14 11/14/17 16:42 BP 123/36 L 11/14/17 16:42 Pulse Ox 100 11/14/17 16:42 - Medical History PMH: Alzheimer's Disease, Anemia, Anxiety, Arthritis, Asthma, Atrial Fibrillation, Bronchitis, CAD, Cardia Arrhythmia, CHF, COPD, CVA, Depression, Diabetes, Deep Vein Thrombosis, Gastritis, Gastrointestinal Ulcer, Gall Bladder Disease, HTN, Hypercholesterolemia, Hypothyroidism, Pneumonia, End Stage Renal Disease, Chronic Kidney Disease, Seizures Denies: Hyperthyroidism, Kidney Stones, Sexually Transmitted Disease Surgical History: CABG (12/2009), Cholecystectomy (2011), Coronary Stent - [facility] Procedures (10/30/17) ABDOMINAL WALL SINOGRAM (12/31/13) C.A.T. SCAN OF ABDOMEN (10/31/13) CENTRAL VENOUS CATHETER PLACEMENT WITH GUIDANCE (02/10/15) CHANGE OTHER DEVICE IN TRUNK SUBCU/FASCIA, QUALITATIVE FIELD PROJECT MANAGER APPROACH (06/01/17) DILATE R ANT TIB ART W DRUG-ELUT INTRALUM, PERC (08/12/15) DILATION OF LEFT FEMORAL ARTERY, PERCUTANEOUS APPROACH (07/04/16) DILATION OF RIGHT FEMORAL ARTERY, PERCUTANEOUS APPROACH (08/12/15) DILATION OF RIGHT POPLITEAL ARTERY, PERCUTANEOUS APPROACH (08/12/15) DX ULTRASOUND-HEART (01/05/13) ENTERAL INFUSION OF CONCENTRATED NUT. SUBSTANCES (06/28/13) EXCIS DEBRIDE OF WOUND, INFECT, OR BURN (08/03/14) EXCISION OF STOMACH, ENDO, DIAGN (03/03/17) EXTIRPATION OF MATTER FROM L FEM ART, PERC APPROACH (07/04/16) EXTIRPATION OF MATTER FROM R FEM ART, PERC APPROACH (08/12/15) EXTIRPATION OF MATTER FROM R POPL ART, PERC APPROACH (08/12/15) FLUOROSCOPY OF L LOW EXTREM ART USING L OSM CONTRAST (08/12/15) FLUOROSCOPY OF R LOW EXTREM ART USING L OSM CONTRAST (08/12/15) FLUOROSCOPY OF RIGHT JUGULAR VEINS, GUIDANCE (06/01/17) FREE SKIN GRAFT NEC (08/03/14) HEAD SOFT TISS X-RAY NEC (08/14/13) HEMODIALYSIS (04/28/15) INCIS W REM OF FORIEGN BODY OR DEV FROM SKIN & SUBCUT TISSUE (08/08/13) INSERT INFUSION DEV IN R INT JUGULAR VEIN, PERC (06/01/17) INSERTION OF INFUSION DEV INTO R SUBCLAV VEIN, PERC APPROACH (01/19/16) INSERTION OF INFUSION DEV INTO SUP VENA CAVA, PERC APPROACH (05/17/17) INSPECTION OF UPPER INTESTINAL TRACT, ENDO (03/03/17) INTRODUCE OF OTH THROMBOLYTIC INTO PERIPH ART, PERC APPROACH (08/12/15) LAPAROSCOPIC CHOLECYSTECTOMY (09/21/13) LOC EXC LES METATAR/TAR (06/01/14) PACKED CELL TRANSFUSION (06/01/14) PERCUTAN LIVER ASPIRAT (12/31/13) PERFORMANCE OF URINARY FILTRATION, MULTIPLE (05/17/17) PERFORMANCE OF URINARY FILTRATION, SINGLE (12/18/16) SKIN & SUBQ INCISION NEC (10/24/14) TETANUS TOXOID ADMINIST (06/13/14) TRANSFUSE NONAUT RED BLOOD CELLS IN PERIPH VEIN, PERC (04/09/17) ULTRASONOGRAPHY OF RIGHT AND LEFT HEART (04/09/17) ULTRASONOGRAPHY OF SUPERIOR VENA CAVA, GUIDANCE (02/20/17) VENOUS CATHETERIZATION FOR RENAL DIALYSIS (08/08/13) VENOUS CATHETERIZATION NEC (04/30/13) Family History: States: Unknown Family Hx - Social History Hx Tobacco Use: No Hx Alcohol Use: No Hx Substance Use: No - Immunization History Hx Tetanus Toxoid Vaccination: Yes Hx Influenza Vaccination: Yes Hx Pneumococcal Vaccination: Yes ED Course And Treatment O2 Sat by Pulse Oximetry: 100 Disposition - Disposition
--- NOTE | 2017-11-14 16:56 | C.PDOC ---
History Of Present Illness 37 year old male with PMHx of severe DM peripheral disease, patient is legally blind and has B/L BKA. Patient today noted to have quite elevated BP at home because he did not take his medications. Patient reports his BP was 230 systolic , he was brought in from dialysis shortly after suffering a syncopal episode. Patient usually goes to dialysis on Saturday and , went yesterday due to an appointment that conflicted with his scheduled Saturday dialysis. Patient received his BP medications now and is currently asymptomatic. Patient denies CP , SOB, fever, chills, nausea, vomit, diarrhea. Chief Complaint (Nursing): Syncope History Per: Patient History/Exam Limitations: no limitations Onset/Duration Of Symptoms: Days Current Symptoms Are (Timing): Still Present Number Of Syncopal Episodes: 1 Associated Symptoms Preceding Syncopal Episode: No Predromal Symptoms (Sudden Onset) Seizure Or Post-ictal Symptoms: None Fall Associated With With Symptoms: No Recent travel outside of the [place]: No Additional History Per: Patient Past Medical History Reviewed: Historical Data, Nursing Documentation, Vital Signs Vital Signs: Last Vital Signs Temp 97.8 F 11/17/17 15:50 Pulse 64 11/17/17 16:00 Resp 18 11/17/17 15:50 BP 114/65 11/17/17 18:03 Pulse Ox 100 11/17/17 15:50 - Medical History PMH: Alzheimer's Disease, Anemia, Anxiety, Arthritis, Asthma, Atrial Fibrillation, Bronchitis, CAD, Cardia Arrhythmia, CHF, COPD, CVA, Depression, Diabetes, Deep Vein Thrombosis, Gastritis, Gastrointestinal Ulcer, Gall Bladder Disease, HTN, Hypercholesterolemia, Hypothyroidism, Pneumonia, End Stage Renal Disease, Chronic Kidney Disease, Seizures Denies: Hyperthyroidism, Kidney Stones, Sexually Transmitted Disease Surgical History: CABG (12/2009), Cholecystectomy (2011), Coronary Stent - [facility] Procedures (10/30/17) ABDOMINAL WALL SINOGRAM (12/31/13) C.A.T. SCAN OF ABDOMEN (10/31/13) CENTRAL VENOUS CATHETER PLACEMENT WITH GUIDANCE (02/10/15) CHANGE OTHER DEVICE IN TRUNK SUBCU/FASCIA, SUPPORT MANAGER APPROACH (06/01/17) DILATE R ANT TIB ART W DRUG-ELUT INTRALUM, PERC (08/12/15) DILATION OF LEFT FEMORAL ARTERY, PERCUTANEOUS APPROACH (07/04/16) DILATION OF RIGHT FEMORAL ARTERY, PERCUTANEOUS APPROACH (08/12/15) DILATION OF RIGHT POPLITEAL ARTERY, PERCUTANEOUS APPROACH (08/12/15) DX ULTRASOUND-HEART (01/05/13) ENTERAL INFUSION OF CONCENTRATED NUT. SUBSTANCES (06/28/13) EXCIS DEBRIDE OF WOUND, INFECT, OR BURN (08/03/14) EXCISION OF STOMACH, ENDO, DIAGN (03/03/17) EXTIRPATION OF MATTER FROM L FEM ART, PERC APPROACH (07/04/16) EXTIRPATION OF MATTER FROM R FEM ART, PERC APPROACH (08/12/15) EXTIRPATION OF MATTER FROM R POPL ART, PERC APPROACH (08/12/15) FLUOROSCOPY OF L LOW EXTREM ART USING L OSM CONTRAST (08/12/15) FLUOROSCOPY OF R LOW EXTREM ART USING L OSM CONTRAST (08/12/15) FLUOROSCOPY OF RIGHT JUGULAR VEINS, GUIDANCE (06/01/17) FREE SKIN GRAFT NEC (08/03/14) HEAD SOFT TISS X-RAY NEC (04/15/13) HEMODIALYSIS (04/28/15) INCIS W REM OF FORIEGN BODY OR DEV FROM SKIN & SUBCUT TISSUE (08/08/13) INSERT INFUSION DEV IN R INT JUGULAR VEIN, PERC (06/01/17) INSERTION OF INFUSION DEV INTO R SUBCLAV VEIN, PERC APPROACH (01/19/16) INSERTION OF INFUSION DEV INTO SUP VENA CAVA, PERC APPROACH (05/17/17) INSPECTION OF UPPER INTESTINAL TRACT, ENDO (03/03/17) INTRODUCE OF OTH THROMBOLYTIC INTO PERIPH ART, PERC APPROACH (08/12/15) LAPAROSCOPIC CHOLECYSTECTOMY (09/21/13) LOC EXC LES METATAR/TAR (06/01/14) PACKED CELL TRANSFUSION (06/01/14) PERCUTAN LIVER ASPIRAT (12/31/13) PERFORMANCE OF URINARY FILTRATION, MULTIPLE (05/17/17) PERFORMANCE OF URINARY FILTRATION, SINGLE (12/18/16) SKIN & SUBQ INCISION NEC (10/24/14) TETANUS TOXOID ADMINIST (06/13/14) TRANSFUSE NONAUT RED BLOOD CELLS IN PERIPH VEIN, PERC (04/09/17) ULTRASONOGRAPHY OF RIGHT AND LEFT HEART (04/09/17) ULTRASONOGRAPHY OF SUPERIOR VENA CAVA, GUIDANCE (02/20/17) VENOUS CATHETERIZATION FOR RENAL DIALYSIS (08/08/13) VENOUS CATHETERIZATION NEC (04/30/13) Family History: States: Unknown Family Hx - Social History Hx Tobacco Use: No Hx Alcohol Use: No Hx Substance Use: No - Immunization History Hx Tetanus Toxoid Vaccination: Yes Hx Influenza Vaccination: Yes Hx Pneumococcal Vaccination: Yes Review Of Systems Constitutional: Positive for: Weakness. Negative for: Fever, Chills Cardiovascular: Negative for: Chest Pain Gastrointestinal: Negative for: Nausea, Vomiting, Abdominal Pain Genitourinary: Negative for: Dysuria Skin: Negative for: Rash Neurological: Negative for: Weakness, Numbness Physical Exam - Physical Exam Appears: Non-toxic, No Acute Distress Skin: Normal Color, Warm, Dry Head: Atraumatic, Normacephalic Eye(s): bilateral: Normal Inspection Nose: No Discharge Oral Mucosa: Moist Neck: Normal ROM, Supple Chest: Symmetrical, Other (right subclavian porth cath) Cardiovascular: Rhythm Regular, No Murmur Respiratory: Normal Breath Sounds, No Rales, No Rhonchi, No Wheezing Gastrointestinal/Abdominal: Soft, No Tenderness, No Guarding, No Rebound Extremity: Other (B/L BKA) Neurological/Psych: Oriented x3 ED Course And Treatment - Laboratory Results Result Diagrams: 11/14/17 19:26 11/16/17 16:50 O2 Sat by Pulse Oximetry: 100 Pulse Ox Interpretation: Normal Medical Decision Making Medical Decision Making: Impression: Syncope Plan: * Labs * CXR Disposition - Disposition Disposition: HOSPITALIZED Disposition Time: 19:04 Condition: FAIR - Clinical Impression Clinical Impression: Syncope - Scribe Statement The provider has reviewed the documentation as recorded by the Scribe Mike Sheets All medical record entries made by the Marlonibrigoberto were at my direction and personally dictated by me. I have reviewed the chart and agree that the record accurately reflects my personal performance of the history, physical exam, medical decision making, and the department course for this patient. I have also personally directed, reviewed, and agree with the discharge instructions and disposition.
[2017-11-14 19:29] LABS: BASO # 0.1 K/uL (0.0-0.2); EOS # 0.4 K/uL (0.0-0.7); EOS % 4.3 % (0.0-4.0); HEMOGLOBIN 9.6 g/dL (12.0-18.0); LYMPH # 1.9 K/uL (1.0-4.3); LYMPH % 21.9 % (20.0-40.0); MEAN CELL VOLUME 96.4 fL (80.0-94.0); MEAN CORPUSCULAR HEMOGLOBIN 31.3 pg (27.0-31.0); MEAN CORPUSCULAR HGB CONC 32.5 g/dL (33.0-37.0); MEAN PLATELET VOLUME 9.2 fL (7.2-11.7); MONO # 0.5 K/uL (0.0-0.8); MONO % 5.6 % (0.0-10.0); NEUT # 5.9 K/uL (1.8-7.0); NEUT % 67.2 % (50.0-75.0); RBC 3.08 Mil/uL (4.40-5.90); RED CELL DISTRIBUTION WIDTH 17.4 % (11.5-14.5); WHITE BLOOD COUNT 8.9 K/uL (4.8-10.8)
[2017-11-14 19:43] LABS: ALBUMIN 3.8 g/dL (3.5-5.0); CALCIUM 8.4 mg/dl (8.6-10.4)
[2017-11-14 19:53] LABS: TROPONIN I 0.016 ng/mL (0.00-0.120)
[2017-11-14] MEDS ORDERED: HYDROmorphone 1 mg/ml ISec ONE (20:58)
[2017-11-14] MEDS: HYDROmorphone 1 mg/ml ISec IVP PRN (21:00)
[2017-11-14] MEDS ORDERED: Ergocalciferol 50,000 Intl Units Cap PO SCH (21:15)
[2017-11-14] MEDS ORDERED: (Novolin R) Insulin Human Regular 100 units/ml vial ONE (22:13)
[2017-11-14] MEDS ORDERED: (Lantus) Insulin Glargine, Recombinant SC ONE (22:14)
[2017-11-14] MEDS: (Novolin R) Insulin Human Regular 100 units/ml vial SC SCH (22:16)
[2017-11-14] MEDS: Albuterol-Ipratrop 3 mg / 0.5 (3 ml) UD IH SCH (23:43)
[2017-11-15] MEDS: HYDROmorphone 1 mg/ml ISec IVP PRN (03:12)
[2017-11-15] MEDS: Albuterol-Ipratrop 3 mg / 0.5 (3 ml) UD IH SCH ×5 (03:16→23:55)
--- NOTE | 2017-11-15 06:51 | RAD ---
Chest x-ray single frontal view History: Sepsis. Comparison: 11/07/2017 Findings: Right central venous catheter tip extending into the right atrium. Status post median sternotomy and CABG. Cardiomegaly. Moderate to severe venous congestion with prominent bibasilar airspace opacities and small bilateral pleural effusions. Degenerative changes in the spine and shoulders. Impression: Right central venous catheter tip extending into the right atrium. Status post median sternotomy and CABG. Cardiomegaly. Moderate to severe venous congestion with prominent bibasilar airspace opacities and small bilateral pleural effusions.
[2017-11-15] MEDS: Multivitamin Vitamin B Complex (Nephro-Vite) Tab PO SCH (08:00)
[2017-11-15] MEDS: (Novolin R) Insulin Human Regular 100 units/ml vial SC SCH ×4 (08:00→21:41)
[2017-11-15] MEDS: Ranolazine 500 mg Extended Release Tablets PO SCH ×2 (09:06→18:42)
[2017-11-15] MEDS: Pantoprazole 20 mg EC Tab PO SCH (09:07)
[2017-11-15] MEDS: HYDROmorphone 0.5 mg/0.5 ml ISec IVP PRN ×3 (09:09→20:07)
--- NOTE | 2017-11-15 11:06 | CP.PCM.HP ---
History of Present Illness - History of Present Illness History of Present Illness: pt came in by ambulace lost cosious hi bp sob possible seizer Present on Admission - Present on Admission Any Indicators Present on Admission: Yes Review of Systems - Review of Systems Systems not reviewed;Unavailable: Acuity of Condition Past Patient History - Infectious Disease Hx of Infectious Diseases: None - Tetanus Immunizations Tetanus Immunization: >10 years Ago - Past Medical History & Family History Past Medical History?: Yes - Past Social History Smoking Status: Former Smoker - CARDIAC Hx Atrial Fibrillation: Yes Hx Cardia Arrhythmia: Yes Hx Congestive Heart Failure: Yes Hx Hypercholesterolemia: Yes Hx Hypertension: Yes - PULMONARY Hx Asthma: Yes Hx Bronchitis: Yes Hx Chronic Obstructive Pulmonary Disease (COPD): Yes Hx Pneumonia: Yes - NEUROLOGICAL Hx Alzheimer's Disease: Yes Hx Seizures: Yes - HEENT Hx HEENT Problems: Yes Hx Blind: Yes (legally blind) Hx Cataracts: Yes - RENAL Hx Chronic Kidney Disease: Yes Hx Kidney Stones: No - ENDOCRINE/METABOLIC Hx Hyperthyroidism: No Hx Hypothyroidism: Yes - HEMATOLOGICAL/ONCOLOGICAL Hx Anemia: Yes - INTEGUMENTARY Hx Dermatological Problems: No - MUSCULOSKELETAL/RHEUMATOLOGICAL Hx Arthritis: Yes - GASTROINTESTINAL Hx Gall Bladder Disease: Yes Hx Gastritis: Yes - GENITOURINARY/GYNECOLOGICAL Hx Sexually Transmitted Disorders: No - PSYCHIATRIC Hx Anxiety: Yes Hx Depression: Yes Hx Substance Use: No - SURGICAL HISTORY Hx Cholecystectomy: Yes (2011) 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/2009) Hx Coronary Stent: Yes - ANESTHESIA Hx Anesthesia: Yes Hx Anesthesia Reactions: No Hx Malignant Hyperthermia: No Meds Allergies/Adverse Reactions: Allergies Allergy/AdvReac Type Severity Reaction Status Date / Time acetaminophen [From Percocet] Allergy RASH Verified 11/14/17 16:28 atenolol Allergy RASH Verified 11/14/17 16:28 digoxin Allergy RASH Verified 11/14/17 16:28 milk Allergy ITCHING Verified 11/14/17 16:28 morphine Allergy RASH Verified 11/14/17 16:28 oxycodone HCl [From Percocet] Allergy RASH Verified 11/14/17 16:28 Physical Exam - Constitutional Appears: Non-toxic - Head Exam Head Exam: ATRAUMATIC - Eye Exam Eye Exam: Conjunctival injection - ENT Exam ENT Exam: Mucous Membranes Moist - Neck Exam Neck exam: Positive for: Full Rom - Respiratory Exam Respiratory Exam: Decreased Breath Sounds - Cardiovascular Exam Cardiovascular Exam: Tachycardia, REGULAR RHYTHM, +S1, +S2, +S4 - GI/Abdominal Exam GI & Abdominal Exam: Normal Bowel Sounds - Rectal Exam Rectal Exam: NORMAL INSPECTION - Back Exam Back exam: CVA tenderness (L) - Neurological Exam Neurological exam: Oriented x3 - Psychiatric Exam Psychiatric exam: Depressed Results - Vital Signs Recent Vital Signs: Last Vital Signs Temp 97.9 F 11/15/17 04:00 Pulse 75 11/15/17 07:48 Resp 20 11/15/17 04:00 BP 155/76 H 11/15/17 09:07 Pulse Ox 98 11/15/17 08:01 - Labs Result Diagrams: 11/14/17 19:26 11/14/17 19:26 Labs: Laboratory Results - last 24 hr 11/14/17 11/14/17 11/14/17 16:24 19:26 19:26 WBC 8.9 RBC 3.08 L Hgb 9.6 L Hct 29.6 L MCV 96.4 H D MCH 31.3 H MCHC 32.5 L RDW 17.4 H Plt Count 295 MPV 9.2 Neut % (Auto) 67.2 Lymph % (Auto) 21.9 [place] % (Auto) 5.6 Eos % (Auto) 4.3 H Baso % (Auto) 1.0 Neut # (Auto) 5.9 Lymph # (Auto) 1.9 [place] # (Auto) 0.5 Eos # (Auto) 0.4 Baso # (Auto) 0.1 Sodium 138 Potassium 4.7 Chloride 95 L Carbon Dioxide 23 Anion Gap 25 H BUN 45 H Creatinine 4.5 H Est GFR ( Amer) 18 Est GFR (Non-Af Amer) 15 POC Glucose (mg/dL) 262 H Random Glucose 386 H Calcium 8.4 L Total Bilirubin 0.9 AST 24 ALT 13 L D Alkaline Phosphatase 267 H Troponin I 0.0160 Total Protein 7.8 Albumin 3.8 Globulin 4.0 H Albumin/Globulin Ratio 1.0 11/14/17 11/15/17 22:07 06:26 WBC RBC Hgb Hct MCV MCH MCHC RDW Plt Count MPV Neut % (Auto) Lymph % (Auto) [place] % (Auto) Eos % (Auto) Baso % (Auto) Neut # (Auto) Lymph # (Auto) [place] # (Auto) Eos # (Auto) Baso # (Auto) Sodium Potassium Chloride Carbon Dioxide Anion Gap BUN Creatinine Est GFR ( Amer) Est GFR (Non-Af Amer) POC Glucose (mg/dL) 336 H 214 H Random Glucose Calcium Total Bilirubin AST ALT Alkaline Phosphatase Troponin I Total Protein Albumin Globulin Albumin/Globulin Ratio Assessment & Plan - Assessment and Plan (Free Text) Assessment: syncope seizer htn cad dm Plan: as per orders - Date & Time Date: 11/15/17 Time: 11:07
--- NOTE | 2017-11-15 16:24 | CP.PCM.CON ---
History of Present Illness - History of Present Illness History of Present Illness: Nephrology Consultation: Assessment: Stable syncope, fluid overload/pulmonary congestion, missed HD chronic chest pain, A flutter Diabetic chronic Kidney Disease (E11.22) Hypertensive Chronic Kidney Disease (I12.0) End stage renal disease (N18.6) dependence on hemodialysis (Z99.2) (TTS) via AVF Anemia (D64.9), Hyperphosphatemia (E83.39), Secondary Hyperparathyroidism (E21.1 ), HTN (I12.0) CAD s/p CABG, diastolic CHF, parox A flutter/fib, intra-cardiac thrombus, hx of Heparin induced thrombocytopenia, hx of seizure, blindness Plan: Will plan for dialysis today. Continue with Nephrovite 1 tab/day. next HD tomorrow as per TTS schedule PRBC as needed for anemia. plan for Epogen with HD Continue with phos binders home dose BP control with meds as ordered. Glycemic control, Dialysis consistent diet Further work up/management as per primary team Dose meds/antibiotics (if needed) for ESRD status. Avoid fleets enema/magnesium based laxatives. Thanks for allowing me to participate in care of your patient. Will follow patient with you. Please call if any Qs Dr Eric Temple Office: [phone] Chief Complaint; I fainted HPI: Pt is a 37 y/o transgender with hx of ESRD on hemodialysis (TTS) via permacath, chronic anemia, hyperphosphatemia, secondary hyperparathyroidism, Diabetes Mellitus, hypertension, CAD s/p CABG, diastolic CHF, pA flutter/fib, intra-cardiac thrombus, Heparin induced thrombocytopenia in past presented with complaints of passing out and syncope yesterday. also with chronic chest pain/ SOB. pt with frequent and multiple hospitalizations for it denies chest pain, denies palpitation, c/o chronic shortness of breath ROS: All other negative except as in HPI. feels better now. chest pain better. SOB better. denies palpitations Physical Examination: seen on HD General Appearance: Comfortable, in no acute respiratory distress, co-operative . Vitals reviewed and noted as below Head; Atraumatic, normocephalic ENT: no ulcers no thrush. Tongue is midline. Oropharynx: no rash or ulcers. EYES: Pt is blind both eyes Neck; supple no lymphadenopathy, no thyromegaly or bruit Lungs: Normal respiratory rate/effort. Breath sounds bilateral equal clear with few basal crackles Heart: Normal rate. s1s2 normal. No rub or gallop. Extremities: no edema. No varicose veins. has b/l BKA Neurological: Patient is alert, awake and oriented to person, place and time. No focal deficit. Strength bilateral appropriate and equal Skin: Warm and dry. Normal turgor. No rash. Palpitation: Normal elasticity for age Abdomen: Abdomen is soft. Bowel sounds +. There is no abdominal tenderness, no guarding/rigidity or organomegaly Psych: limited insight and has normal affect/mood MSK: no joint tenderness or swelling. Digits and nails normal, no deformity : kidney or bladder not palpable Access: permacath Labs/imaging reviewed. Past medical history, past surgical history, family history, social history, allergy reviewed and noted as below Family Hx: no hx of CKD. Non contributory Past Patient History - Infectious Disease Hx of Infectious Diseases: None - Tetanus Immunizations Tetanus Immunization: >10 years Ago - Past Medical History & Family History Past Medical History?: Yes - Past Social History Smoking Status: Never Smoked - CARDIAC Hx Atrial Fibrillation: Yes Hx Cardia Arrhythmia: Yes Hx Congestive Heart Failure: Yes Hx Hypercholesterolemia: Yes Hx Hypertension: Yes - PULMONARY Hx Asthma: Yes Hx Bronchitis: Yes Hx Chronic Obstructive Pulmonary Disease (COPD): Yes Hx Pneumonia: Yes - NEUROLOGICAL Hx Alzheimer's Disease: Yes Hx Seizures: Yes - HEENT Hx HEENT Problems: Yes Hx Blind: Yes (legally blind) Hx Cataracts: Yes - RENAL Hx Chronic Kidney Disease: Yes Hx Kidney Stones: No - ENDOCRINE/METABOLIC Hx Hyperthyroidism: No Hx Hypothyroidism: Yes - HEMATOLOGICAL/ONCOLOGICAL Hx Anemia: Yes - INTEGUMENTARY Hx Dermatological Problems: No - MUSCULOSKELETAL/RHEUMATOLOGICAL Hx Falls: No - GASTROINTESTINAL Hx Gall Bladder Disease: Yes Hx Gastritis: Yes - GENITOURINARY/GYNECOLOGICAL Hx Sexually Transmitted Disorders: No - PSYCHIATRIC Hx Substance Use: No - SURGICAL HISTORY Hx Cholecystectomy: Yes (2011) 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/2009) Hx Coronary Stent: Yes - ANESTHESIA Hx Anesthesia: Yes Hx Anesthesia Reactions: No Hx Malignant Hyperthermia: No Meds Allergies/Adverse Reactions: Allergies Allergy/AdvReac Type Severity Reaction Status Date / Time acetaminophen [From Percocet] Allergy RASH Verified 11/14/17 16:28 atenolol Allergy RASH Verified 11/14/17 16:28 digoxin Allergy RASH Verified 11/14/17 16:28 milk Allergy ITCHING Verified 11/14/17 16:28 morphine Allergy RASH Verified 11/14/17 16:28 oxycodone HCl [From Percocet] Allergy RASH Verified 11/14/17 16:28 - Medications Medications: Current Medications Albuterol/Ipratropium (Duoneb 3 Mg/0.5 Mg (3 Ml) Ud) 3 ml IH RQ4 [facility] Amiodarone HCl (Cordarone) 200 mg PO DAILY [facility] Last Admin: 11/15/17 09:07 Dose: 200 mg Amlodipine Besylate (Norvasc) 10 mg PO DAILY [facility] Last Admin: 11/15/17 09:07 Dose: 10 mg Aspirin (Aspirin Chewable) 81 mg PO DAILY [facility] Last Admin: 11/15/17 09:06 Dose: 81 mg Calcium Carbonate (Oscal) 500 mg PO BID [facility] Last Admin: 11/15/17 09:07 Dose: 500 mg Carvedilol (Coreg) 25 mg PO BID [facility] Last Admin: 11/15/17 09:07 Dose: 25 mg Clonidine HCl (Catapres-Tts3 0.3 Mg/24 Hr) 1 patch TD Q7D@1000 [facility] Docusate Sodium (Colace) 100 mg PO DAILY [facility] Epoetin Tom (Procrit) 8,000 unit IV TTS [facility] Ergocalciferol (Drisdol 50,000 Intl Units Cap) 1 cap PO Q7D [facility] Last Admin: 11/14/17 21:59 Dose: Not Given Heparin Sodium (Porcine) (Heparin) 3,700 units IVP ONCE ONE Stop: 11/15/17 16:20 Hydromorphone HCl (Dilaudid) 1 mg IVP Q6H PRN PRN Reason: Pain, moderate (4-7) Last Admin: 11/15/17 15:21 Dose: 1 mg Insulin Glargine (Lantus) 10 unit SC HS [facility] Insulin Human Regular (Novolin R) 0 unit SC ACHS [facility] PRN Reason: Protocol Last Admin: 11/15/17 12:03 Dose: Not Given Isosorbide Mononitrate (Imdur) 60 mg PO DAILY [facility] Last Admin: 11/15/17 09:07 Dose: 60 mg Levetiracetam (Keppra) 500 mg PO BID [facility] Last Admin: 11/15/17 09:06 Dose: 500 mg Montelukast Sodium (Singulair) 10 mg PO DAILY [facility] Last Admin: 11/15/17 09:09 Dose: 10 mg Pantoprazole Sodium (Protonix Ec Tab) 20 mg PO DAILY [facility] Last Admin: 11/15/17 09:07 Dose: 20 mg Ranolazine (Ranexa) 500 mg PO BID [facility] Last Admin: 11/15/17 09:06 Dose: 500 mg Rosuvastatin Calcium (Crestor) 10 mg PO HS [facility] Last Admin: 11/14/17 22:16 Dose: 10 mg Sertraline HCl (Zoloft) 50 mg PO DAILY [facility] Last Admin: 11/15/17 09:07 Dose: 50 mg Vitamin B Complex/Vit C/Folic Acid (Nephro-Courtney) 1 tab PO 0800 [facility] Last Admin: 11/15/17 08:00 Dose: 1 tab Results - Vital Signs Recent Vital Signs: Last Vital Signs Temp 97.2 F L 11/15/17 14:45 Pulse 67 11/15/17 16:11 Resp 18 11/15/17 16:11 BP 123/71 11/15/17 16:15 Pulse Ox 100 11/15/17 14:45 - Labs Result Diagrams: 11/14/17 19:26 11/14/17 19:26 Labs: Laboratory Results - last 24 hr 11/14/17 11/14/17 11/14/17 16:24 19:26 19:26 WBC 8.9 RBC 3.08 L Hgb 9.6 L Hct 29.6 L MCV 96.4 H D MCH 31.3 H MCHC 32.5 L RDW 17.4 H Plt Count 295 MPV 9.2 Neut % (Auto) 67.2 Lymph % (Auto) 21.9 [place] % (Auto) 5.6 Eos % (Auto) 4.3 H Baso % (Auto) 1.0 Neut # (Auto) 5.9 Lymph # (Auto) 1.9 [place] # (Auto) 0.5 Eos # (Auto) 0.4 Baso # (Auto) 0.1 Sodium 138 Potassium 4.7 Chloride 95 L Carbon Dioxide 23 Anion Gap 25 H BUN 45 H Creatinine 4.5 H Est GFR ( Amer) 18 Est GFR (Non-Af Amer) 15 POC Glucose (mg/dL) 262 H Random Glucose 386 H Calcium 8.4 L Total Bilirubin 0.9 AST 24 ALT 13 L D Alkaline Phosphatase 267 H Troponin I 0.0160 Total Protein 7.8 Albumin 3.8 Globulin 4.0 H Albumin/Globulin Ratio 1.0 11/14/17 11/15/17 11/15/17 22:07 06:26 11:51 WBC RBC Hgb Hct MCV MCH MCHC RDW Plt Count MPV Neut % (Auto) Lymph % (Auto) [place] % (Auto) Eos % (Auto) Baso % (Auto) Neut # (Auto) Lymph # (Auto) [place] # (Auto) Eos # (Auto) Baso # (Auto) Sodium Potassium Chloride Carbon Dioxide Anion Gap BUN Creatinine Est GFR ( Amer) Est GFR (Non-Af Amer) POC Glucose (mg/dL) 336 H 214 H 135 H Random Glucose Calcium Total Bilirubin AST ALT Alkaline Phosphatase Troponin I Total Protein Albumin Globulin Albumin/Globulin Ratio 11/15/17 15:50 WBC RBC Hgb Hct MCV MCH MCHC RDW Plt Count MPV Neut % (Auto) Lymph % (Auto) [place] % (Auto) Eos % (Auto) Baso % (Auto) Neut # (Auto) Lymph # (Auto) [place] # (Auto) Eos # (Auto) Baso # (Auto) Sodium Potassium Chloride Carbon Dioxide Anion Gap BUN Creatinine Est GFR ( Amer) Est GFR (Non-Af Amer) POC Glucose (mg/dL) 193 H Random Glucose Calcium Total Bilirubin AST ALT Alkaline Phosphatase Troponin I Total Protein Albumin Globulin Albumin/Globulin Ratio
[2017-11-15] MEDS: (Lantus) Insulin Glargine, Recombinant SC SCH (21:41)
--- NOTE | 2017-11-15 23:37 | CP.PCM.CON ---
History of Present Illness - History of Present Illness History of Present Illness: Admitted for a syncopal episode. No history of Seizures ESRD receiving H.D. HTN, CAD, Atrial Fibrillation, A. 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 H/O Bilateral BKA due to PVD His father lives with him and a Homemaker takes care of him 37 year old male with PMHx of severe DM peripheral disease, patient is legally blind and has B/L BKA. Patient today noted to have quite elevated BP at home because he did not take his medications. Patient reports his BP was 230 systolic, he was brought in from dialysis shortly after suffering a syncopal episode. Patient usually goes to dialysis on Saturday and , went yesterday due to an appointment that conflicted with his scheduled Saturday dialysis. Patient received his BP medications now and is currently asymptomatic. Patient denies CP, SOB, fever, chills, nausea, vomit, diarrhea. She developed syncope, fluid overload/pulmonary congestion, missed HD She has chronic chest pain, A flutter during this current admission Chief Complaint (Nursing): Syncope History Per: Patient History/Exam Limitations: no limitations Onset/Duration Of Symptoms: Days Current Symptoms Are (Timing): Still Present Number Of Syncopal Episodes: 1 Associated Symptoms Preceding Syncopal Episode: No Predromal Symptoms (Sudden Onset) Seizure Or Post-ictal Symptoms: None Fall Associated With With Symptoms: No Recent travel outside of the [place]: No Additional History Per: Patient Past Medical History Reviewed: Historical Data, Nursing Documentation, Vital Signs Vital Signs: Last Vital Signs Temp 98.1 F 11/14/17 16:18 Pulse 68 11/14/17 16:42 Resp 14 11/14/17 16:42 BP 123/36 L 11/14/17 16:42 Pulse Ox 100 11/14/17 16:42 - Medical History PMH: Alzheimer's Disease, Anemia, Anxiety, Arthritis, Asthma, Atrial Fibrillation, Bronchitis, CAD, Cardia Arrhythmia, CHF, COPD, CVA, Depression, Diabetes, Deep Vein Thrombosis, Gastritis, Gastrointestinal Ulcer, Gall Bladder Disease, HTN, Hypercholesterolemia, Hypothyroidism, Pneumonia, End Stage Renal Disease, Chronic Kidney Disease, Seizures Denies: Hyperthyroidism, Kidney Stones, Sexually Transmitted Disease Surgical History: CABG (12/2009), Cholecystectomy (2011), Coronary Stent - [facility] (10/30/17) ABDOMINAL WALL SINOGRAM (12/31/13) C.A.T. SCAN OF ABDOMEN (10/31/13) CENTRAL VENOUS CATHETER PLACEMENT WITH GUIDANCE (02/10/15) CHANGE OTHER DEVICE IN TRUNK SUBCU/FASCIA, PRECISION MACHINIST APPROACH (06/01/17) DILATE R ANT TIB ART W DRUG-ELUT INTRALUM, PERC (08/12/15) DILATION OF LEFT FEMORAL ARTERY, PERCUTANEOUS APPROACH (07/04/16) DILATION OF RIGHT FEMORAL ARTERY, PERCUTANEOUS APPROACH (08/12/15) DILATION OF RIGHT POPLITEAL ARTERY, PERCUTANEOUS APPROACH (08/12/15) DX ULTRASOUND-HEART (01/05/13) ENTERAL INFUSION OF CONCENTRATED NUT. SUBSTANCES (06/28/13) EXCIS DEBRIDE OF WOUND, INFECT, OR BURN (08/03/14) EXCISION OF STOMACH, ENDO, DIAGN (03/03/17) EXTIRPATION OF MATTER FROM L FEM ART, PERC APPROACH (07/04/16) EXTIRPATION OF MATTER FROM R FEM ART, PERC APPROACH (08/12/15) EXTIRPATION OF MATTER FROM R POPL ART, PERC APPROACH (08/12/15) FLUOROSCOPY OF L LOW EXTREM ART USING L OSM CONTRAST (08/12/15) FLUOROSCOPY OF R LOW EXTREM ART USING L OSM CONTRAST (08/12/15) FLUOROSCOPY OF RIGHT JUGULAR VEINS, GUIDANCE (06/01/17) FREE SKIN GRAFT NEC (08/03/14) HEAD SOFT TISS X-RAY NEC (04/15/13) HEMODIALYSIS (04/28/15) INCIS W REM OF FORIEGN BODY OR DEV FROM SKIN & SUBCUT TISSUE (08/08/13) INSERT INFUSION DEV IN R INT JUGULAR VEIN, PERC (06/01/17) INSERTION OF INFUSION DEV INTO R SUBCLAV VEIN, PERC APPROACH (01/19/16) INSERTION OF INFUSION DEV INTO SUP VENA CAVA, PERC APPROACH (05/17/17) INSPECTION OF UPPER INTESTINAL TRACT, ENDO (03/03/17) INTRODUCE OF OTH THROMBOLYTIC INTO PERIPH ART, PERC APPROACH (08/12/15) LAPAROSCOPIC CHOLECYSTECTOMY (09/21/13) LOC EXC LES METATAR/TAR (06/01/14) PACKED CELL TRANSFUSION (06/01/14) PERCUTAN LIVER ASPIRAT (12/31/13) PERFORMANCE OF URINARY FILTRATION, MULTIPLE (05/17/17) PERFORMANCE OF URINARY FILTRATION, SINGLE (12/18/16) SKIN & SUBQ INCISION NEC (10/24/14) TETANUS TOXOID ADMINIST (06/13/14) TRANSFUSE NONAUT RED BLOOD CELLS IN PERIPH VEIN, PERC (04/09/17) ULTRASONOGRAPHY OF RIGHT AND LEFT HEART (04/09/17) ULTRASONOGRAPHY OF SUPERIOR VENA CAVA, GUIDANCE (02/20/17) VENOUS CATHETERIZATION FOR RENAL DIALYSIS (08/08/13) VENOUS CATHETERIZATION NEC (04/30/13) Family History: States: His Father has a H/O CVA, HTN, DM His mother is . - Social History Hx Tobacco Use: No Hx Alcohol Use: No Hx Substance Use: No - Immunization History Hx Tetanus Toxoid Vaccination: Yes Hx Influenza Vaccination: Yes Hx Pneumococcal Vaccination: Yes Review Of Systems Constitutional: Positive for: Weakness. Negative for: Fever, Chills Cardiovascular: Negative for: Chest Pain Gastrointestinal: Negative for: Nausea, Vomiting, Abdominal Pain Genitourinary: Negative for: Dysuria Skin: Negative for: Rash Neurological: Negative for: Weakness, Numbness - Physical Exam Appears: Non-toxic, No Acute Distress Skin: Normal Color, Warm, Dry Head: Atraumatic, Normacephalic Eye(s): bilateral: Normal Inspection Nose: No Discharge Oral Mucosa: Moist Neck: Normal ROM, Supple Chest: Symmetrical, Other (right subclavian porth cath) Cardiovascular: Rhythm Regular, No Murmur Respiratory: Normal Breath Sounds, No Rales, No Rhonchi, No Wheezing Gastrointestinal/Abdominal: Soft, No Tenderness, No Guarding, No Rebound Extremity: Other (B/L BKA) Neurological/Psych: Oriented x3 ED Course And Treatment O2 Sat by Pulse Oximetry: 100 Pulse Ox Interpretation: Normal Medical Decision Making Medical Decision Making: Impression: Syncope Plan: * Labs * CXR Past Patient History - Infectious Disease Hx of Infectious Diseases: None - Tetanus Immunizations Tetanus Immunization: >10 years Ago - Past Medical History & Family History Past Medical History?: Yes - Past Social History Smoking Status: Never Smoked - CARDIAC Hx Atrial Fibrillation: Yes Hx Cardia Arrhythmia: Yes Hx Congestive Heart Failure: Yes Hx Hypercholesterolemia: Yes Hx Hypertension: Yes - PULMONARY Hx Asthma: Yes Hx Bronchitis: Yes Hx Chronic Obstructive Pulmonary Disease (COPD): Yes Hx Pneumonia: Yes - NEUROLOGICAL Hx Alzheimer's Disease: Yes Hx Seizures: Yes - HEENT Hx HEENT Problems: Yes Hx Blind: Yes (legally blind) Hx Cataracts: Yes - RENAL Hx Chronic Kidney Disease: Yes Hx Kidney Stones: No - ENDOCRINE/METABOLIC Hx Hyperthyroidism: No Hx Hypothyroidism: Yes - HEMATOLOGICAL/ONCOLOGICAL Hx Anemia: Yes - INTEGUMENTARY Hx Dermatological Problems: No - MUSCULOSKELETAL/RHEUMATOLOGICAL Hx Falls: No - GASTROINTESTINAL Hx Gall Bladder Disease: Yes Hx Gastritis: Yes - GENITOURINARY/GYNECOLOGICAL Hx Sexually Transmitted Disorders: No - PSYCHIATRIC Hx Substance Use: No - SURGICAL HISTORY Hx Cholecystectomy: Yes (2011) 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/2009) Hx Coronary Stent: Yes - ANESTHESIA Hx Anesthesia: Yes Hx Anesthesia Reactions: No Hx Malignant Hyperthermia: No Meds Allergies/Adverse Reactions: Allergies Allergy/AdvReac Type Severity Reaction Status Date / Time acetaminophen [From Percocet] Allergy RASH Verified 11/14/17 16:28 atenolol Allergy RASH Verified 11/14/17 16:28 digoxin Allergy RASH Verified 11/14/17 16:28 milk Allergy ITCHING Verified 11/14/17 16:28 morphine Allergy RASH Verified 11/14/17 16:28 oxycodone HCl [From Percocet] Allergy RASH Verified 11/14/17 16:28 - Medications Medications: Current Medications Albuterol/Ipratropium (Duoneb 3 Mg/0.5 Mg (3 Ml) Ud) 3 ml IH RQ4 [facility] Last Admin: 11/15/17 19:56 Dose: Not Given Amiodarone HCl (Cordarone) 200 mg PO DAILY [facility] Last Admin: 11/15/17 09:07 Dose: 200 mg Amlodipine Besylate (Norvasc) 10 mg PO DAILY [facility] Last Admin: 11/15/17 09:07 Dose: 10 mg Aspirin (Aspirin Chewable) 81 mg PO DAILY [facility] Last Admin: 11/15/17 09:06 Dose: 81 mg Calcium Carbonate (Oscal) 500 mg PO BID [facility] Last Admin: 11/15/17 20:06 Dose: 500 mg Carvedilol (Coreg) 25 mg PO BID [facility] Last Admin: 11/15/17 18:42 Dose: 25 mg Clonidine HCl (Catapres-Tts3 0.3 Mg/24 Hr) 1 patch TD Q7D@1000 [facility] Docusate Sodium (Colace) 100 mg PO DAILY [facility] Epoetin Tom (Procrit) 8,000 unit IV TTS [facility] Ergocalciferol (Drisdol 50,000 Intl Units Cap) 1 cap PO Q7D [facility] Last Admin: 11/14/17 21:59 Dose: Not Given Heparin Sodium (Porcine) (Heparin) 3,700 units IVP TTS [facility] Hydromorphone HCl (Dilaudid) 1 mg IVP Q6H PRN PRN Reason: Pain, moderate (4-7) Last Admin: 11/15/17 20:07 Dose: 1 mg Insulin Glargine (Lantus) 10 unit SC HS [facility] Last Admin: 11/15/17 21:41 Dose: 10 units Insulin Human Regular (Novolin R) 0 unit SC [facility] PRN Reason: Protocol Last Admin: 11/15/17 21:41 Dose: 2 unit Isosorbide Mononitrate (Imdur) 60 mg PO DAILY [facility] Last Admin: 11/15/17 09:07 Dose: 60 mg Levetiracetam (Keppra) 500 mg PO BID [facility] Last Admin: 11/15/17 18:42 Dose: 500 mg Montelukast Sodium (Singulair) 10 mg PO DAILY [facility] Last Admin: 11/15/17 09:09 Dose: 10 mg Pantoprazole Sodium (Protonix Ec Tab) 20 mg PO DAILY [facility] Last Admin: 11/15/17 09:07 Dose: 20 mg Ranolazine (Ranexa) 500 mg PO BID [facility] Last Admin: 11/15/17 18:42 Dose: 500 mg Rosuvastatin Calcium (Crestor) 10 mg PO HS [facility] Last Admin: 11/15/17 21:40 Dose: 10 mg Sertraline HCl (Zoloft) 50 mg PO DAILY [facility] Last Admin: 11/15/17 09:07 Dose: 50 mg Vitamin B Complex/Vit C/Folic Acid (Nephro-Courtney) 1 tab PO 0800 [facility] Last Admin: 11/15/17 08:00 Dose: 1 tab Physical Exam - Neurological Exam Additional comments: Stays sitting in bed watching TV, although he is legally blind. Mental Status: Awake, alert, oriented X 3 Mildly stuttering or dysarthric Normal memory X 3 Cranial Nerves II to XII: Pupils have faded, legally blind, moving his eyes with Normal EOEM. No facial asymmetry Central tongue No Problems swallowing. Motor: Normal Tone and power is 5-/5 in the UEs bilaterally Amputation of both LEs BKA Weak power in the stumps. DTR of the UEs are 0/4 Sensory: Reduced peripherally in in UEs Cerebellar: Normal FNT bilaterally. Results - Vital Signs Recent Vital Signs: Last Vital Signs Temp 97.4 F L 11/15/17 18:28 Pulse 70 11/15/17 18:48 Resp 18 11/15/17 18:28 BP 105/59 L 11/15/17 18:42 Pulse Ox 99 11/15/17 18:28 - Labs Result Diagrams: 11/14/17 19:26 11/16/17 16:50 Labs: Laboratory Results - last 24 hr 11/14/17 11/15/17 11/15/17 22:07 06:26 11:51 POC Glucose (mg/dL) 336 H 214 H 135 H 11/15/17 11/15/17 15:50 20:55 POC Glucose (mg/dL) 193 H 330 H Assessment & Plan (1) Seizures Assessment and Plan: Seizures are to be ruled out as this is a new onset Syncope and there is no past h/o Seizures.. Status: Acute (2) Acute non-ST segment elevation myocardial infarction Status: Chronic (3) CVA (cerebral vascular accident) Assessment and Plan: R/O Cardiac embolic lesion causing CVA due to H/O M.I and Arrhythmia Status: Chronic (4) Migraine Assessment and Plan: Occurring On and OFF He has to observe Headache Precautions: No Salt or spices or Caffeine including coffee and tea or Junk Food, avoid nitrates and nitrites, phosphates and sulfides, no MSG, no cans of food, only fresh food, no alcohol or Red wine no sleeping late, or waking up late. He has to sleep about 7 to 9 hrs daily starting from 10 Pm up to 6 to 7 AM Avoid cold cuts, including hams, hot dogs, baloney. Avoid tomato paste. Use Ibuprofen and or Tylenol PRN Headache. Status: Chronic
[2017-11-16] MEDS: HYDROmorphone 1 mg/ml ISec IVP PRN ×4 (02:03→20:08)
[2017-11-16] MEDS: Albuterol-Ipratrop 3 mg / 0.5 (3 ml) UD IH SCH ×4 (03:28→16:09)
[2017-11-16] MEDS: (Novolin R) Insulin Human Regular 100 units/ml vial SC SCH ×4 (07:50→21:26)
[2017-11-16] MEDS: Multivitamin Vitamin B Complex (Nephro-Vite) Tab PO SCH (09:47)
[2017-11-16] MEDS: Ranolazine 500 mg Extended Release Tablets PO SCH ×3 (09:56→20:03)
[2017-11-16] MEDS: Pantoprazole 20 mg EC Tab PO SCH (09:56)
[2017-11-16] MEDS ORDERED: Influenza Vaccine 60 mcg/0.5 mL SYR (4YR UP) IM ONE (10:00)
--- NOTE | 2017-11-16 10:24 | CP.PCM.PN ---
Subjective - Date & Time of Evaluation Date of Evaluation: 11/16/17 Time of Evaluation: 10:23 - Subjective Subjective: Assessment: Stable syncope, fluid overload/pulmonary congestion, missed HD chronic chest pain, A flutter Diabetic chronic Kidney Disease (E11.22) Hypertensive Chronic Kidney Disease (I12.0) End stage renal disease (N18.6) dependence on hemodialysis (Z99.2) (TTS) via AVF Anemia (D64.9), Hyperphosphatemia (E83.39), Secondary Hyperparathyroidism (E21.1 ), HTN (I12.0) CAD s/p CABG, diastolic CHF, parox A flutter/fib, intra-cardiac thrombus, hx of Heparin induced thrombocytopenia, hx of seizure, blindness Plan: Will plan for dialysis today as today is regular day, TTS as opt. Continue with Nephrovite 1 tab/day. PRBC as needed for anemia. plan for Epogen with HD Continue with phos binders BP control with meds Glycemic control Further work up/management as per primary team Dose meds/antibiotics (if needed) for ESRD status. ROS: All other negative except as in HPI. Physical Examination: General Appearance: Comfortable, in no acute respiratory distress, co-operative . Vitals reviewed Head; Atraumatic, normocephalic ENT: no ulcers no thrush. Tongue is midline. Oropharynx: no rash or ulcers. EYES: Pt is blind both eyes Neck; supple no lymphadenopathy, no thyromegaly or bruit Lungs: Normal respiratory rate/effort. Breath sounds bilateral equal clear with few basal crackles Heart: Normal rate. s1s2 normal. No rub or gallop. Extremities: no edema. No varicose veins. has b/l BKA Neurological: Patient is alert, awake and oriented to person, place and time. No focal deficit. Strength bilateral appropriate and equal Skin: Warm and dry. Normal turgor. No rash. Palpitation: Normal elasticity for age Abdomen: Abdomen is soft. Bowel sounds +. There is no abdominal tenderness, no guarding/rigidity or organomegaly Psych: limited insight and has normal affect/mood MSK: no joint tenderness or swelling. Access: permacath Objective - Vital Signs/Intake and Output Vital Signs (last 24 hours): Temp Pulse Resp BP Pulse Ox 97.8 F 68 20 172/84 H 100 11/16/17 09:03 11/16/17 09:03 11/15/17 23:00 11/16/17 09:03 11/16/17 09:03 - Medications Medications: Current Medications Albuterol/Ipratropium (Duoneb 3 Mg/0.5 Mg (3 Ml) Ud) 3 ml IH RQ4 [facility] Last Admin: 11/16/17 08:03 Dose: Not Given Amiodarone HCl (Cordarone) 200 mg PO DAILY [facility] Last Admin: 11/15/17 09:07 Dose: 200 mg Amlodipine Besylate (Norvasc) 10 mg PO DAILY [facility] Last Admin: 11/15/17 09:07 Dose: 10 mg Aspirin (Aspirin Chewable) 81 mg PO DAILY [facility] Last Admin: 11/15/17 09:06 Dose: 81 mg Calcium Carbonate (Oscal) 500 mg PO BID [facility] Last Admin: 11/16/17 09:47 Dose: 500 mg Carvedilol (Coreg) 25 mg PO BID [facility] Last Admin: 11/15/17 18:42 Dose: 25 mg Clonidine HCl (Catapres-Tts3 0.3 Mg/24 Hr) 1 patch TD Q7D@1000 [facility] Docusate Sodium (Colace) 100 mg PO DAILY [facility] Epoetin Tom (Procrit) 8,000 unit IV TTS [facility] Ergocalciferol (Drisdol 50,000 Intl Units Cap) 1 cap PO Q7D [facility] Last Admin: 11/14/17 21:59 Dose: Not Given Heparin Sodium (Porcine) (Heparin) 3,700 units IVP TTS [facility] Hydromorphone HCl (Dilaudid) 1 mg IVP Q6H PRN PRN Reason: Pain, moderate (4-7) Last Admin: 11/16/17 08:05 Dose: 1 mg Insulin Glargine (Lantus) 10 unit SC HS [facility] Last Admin: 11/15/17 21:41 Dose: 10 units Insulin Human Regular (Novolin R) 0 unit SC ACHS [facility] PRN Reason: Protocol Last Admin: 11/16/17 07:50 Dose: 4 unit Isosorbide Mononitrate (Imdur) 60 mg PO DAILY [facility] Last Admin: 11/15/17 09:07 Dose: 60 mg Levetiracetam (Keppra) 500 mg PO BID [facility] Last Admin: 11/16/17 09:47 Dose: 500 mg Montelukast Sodium (Singulair) 10 mg PO [facility] Pantoprazole Sodium (Protonix Ec Tab) 20 mg PO DAILY [facility] Last Admin: 11/16/17 09:56 Dose: 20 mg Ranolazine (Ranexa) 500 mg PO BID [facility] Last Admin: 11/16/17 09:56 Dose: 500 mg Rosuvastatin Calcium (Crestor) 10 mg PO HS [facility] Last Admin: 11/15/17 21:40 Dose: 10 mg Sertraline HCl (Zoloft) 50 mg PO DAILY [facility] Last Admin: 11/16/17 09:47 Dose: 50 mg Vitamin B Complex/Vit C/Folic Acid (Nephro-Courtney) 1 tab PO 0800 [facility] Last Admin: 11/16/17 09:47 Dose: 1 tab - Labs Labs: 11/14/17 19:26 11/14/17 19:26
--- NOTE | 2017-11-16 12:08 | CP.PCM.PN ---
Subjective - Date & Time of Evaluation Date of Evaluation: 11/16/17 Time of Evaluation: 12:06 - Subjective Subjective: c/o headeack and dizziness Objective - Vital Signs/Intake and Output Vital Signs (last 24 hours): Temp Pulse Resp BP Pulse Ox 97.8 F 68 20 172/84 H 100 11/16/17 09:03 11/16/17 09:03 11/15/17 23:00 11/16/17 09:03 11/16/17 09:03 - Medications Medications: Current Medications Albuterol/Ipratropium (Duoneb 3 Mg/0.5 Mg (3 Ml) Ud) 3 ml IH RQ4 [facility] Last Admin: 11/16/17 11:23 Dose: Not Given Amiodarone HCl (Cordarone) 200 mg PO DAILY [facility] Last Admin: 11/15/17 09:07 Dose: 200 mg Amlodipine Besylate (Norvasc) 10 mg PO DAILY [facility] Last Admin: 11/15/17 09:07 Dose: 10 mg Aspirin (Aspirin Chewable) 81 mg PO DAILY [facility] Last Admin: 11/15/17 09:06 Dose: 81 mg Calcium Carbonate (Oscal) 500 mg PO BID [facility] Last Admin: 11/16/17 09:47 Dose: 500 mg Carvedilol (Coreg) 25 mg PO BID [facility] Last Admin: 11/15/17 18:42 Dose: 25 mg Clonidine HCl (Catapres-Tts3 0.3 Mg/24 Hr) 1 patch TD Q7D@1000 [facility] Docusate Sodium (Colace) 100 mg PO DAILY [facility] Epoetin Tom (Procrit) 8,000 unit IV TTS [facility] Ergocalciferol (Drisdol 50,000 Intl Units Cap) 1 cap PO Q7D [facility] Last Admin: 11/14/17 21:59 Dose: Not Given Heparin Sodium (Porcine) (Heparin) 3,700 units IVP TTS [facility] Hydromorphone HCl (Dilaudid) 1 mg IVP Q6H PRN PRN Reason: Pain, moderate (4-7) Last Admin: 11/16/17 08:05 Dose: 1 mg Insulin Glargine (Lantus) 10 unit SC HS [facility] Last Admin: 11/15/17 21:41 Dose: 10 units Insulin Human Regular (Novolin R) 0 unit SC ACHS [facility] PRN Reason: Protocol Last Admin: 11/16/17 07:50 Dose: 4 unit Isosorbide Mononitrate (Imdur) 60 mg PO DAILY [facility] Last Admin: 11/15/17 09:07 Dose: 60 mg Levetiracetam (Keppra) 500 mg PO BID [facility] Last Admin: 11/16/17 09:47 Dose: 500 mg Montelukast Sodium (Singulair) 10 mg PO [facility] Pantoprazole Sodium (Protonix Ec Tab) 20 mg PO DAILY [facility] Last Admin: 11/16/17 09:56 Dose: 20 mg Ranolazine (Ranexa) 500 mg PO BID [facility] Last Admin: 11/16/17 09:56 Dose: 500 mg Rosuvastatin Calcium (Crestor) 10 mg PO HS [facility] Last Admin: 11/15/17 21:40 Dose: 10 mg Sertraline HCl (Zoloft) 50 mg PO DAILY [facility] Last Admin: 11/16/17 09:47 Dose: 50 mg Vitamin B Complex/Vit C/Folic Acid (Nephro-Courtney) 1 tab PO 0800 [facility] Last Admin: 11/16/17 09:47 Dose: 1 tab - Labs Labs: 11/14/17 19:26 11/14/17 19:26 - Constitutional Appears: Older Than Stated Age - Head Exam Head Exam: ATRAUMATIC - Eye Exam Eye Exam: Conjunctival injection - ENT Exam ENT Exam: Mucous Membranes Moist - Neck Exam Neck Exam: Full ROM - Respiratory Exam Respiratory Exam: Decreased Breath Sounds - Cardiovascular Exam Cardiovascular Exam: REGULAR RHYTHM - GI/Abdominal Exam GI & Abdominal Exam: Normal Bowel Sounds - Rectal Exam Rectal Exam: NORMAL INSPECTION - Neurological Exam Neurological Exam: Alert, Oriented x3 - Psychiatric Exam Psychiatric exam: Normal Affect - Skin Skin Exam: Pallor Assessment and Plan - Assessment and Plan (Free Text) Assessment: s/p sycope seisers htn uncontroled dm esrf Plan: cont as per orders
[2017-11-16 17:12] LABS: ALBUMIN 3.5 g/dL (3.5-5.0); CALCIUM 8.2 mg/dl (8.6-10.4)
[2017-11-16] MEDS: EPOETIN ALFA 4,000 UNIT/ML ML Dialysis IV SCH (18:49)
[2017-11-16] MEDS: (Lantus) Insulin Glargine, Recombinant SC SCH (22:23)
[2017-11-17] MEDS: Albuterol-Ipratrop 3 mg / 0.5 (3 ml) UD IH SCH ×6 (00:58→19:27)
--- NOTE | 2017-11-17 01:48 | CP.PCM.PN ---
Subjective - Date & Time of Evaluation Date of Evaluation: 11/16/17 Time of Evaluation: 22:00 - Subjective Subjective: He has no new syncopal spells. He received his Hemodialysis tonight. He is doing better, more active and in a better mood. Carotid Doppler is performed, results are pending. His labs show high glucose level, high ESR at 42 and high CRP at 8.92 His MRI Brain is pending, EEG is ordered. Keppra was started by Dr Sybil Li at 500 mg Q 12 hrs. Patient has high ALP and normal ALT and AST. P/E is unchanged. Objective - Vital Signs/Intake and Output Vital Signs (last 24 hours): Temp Pulse Resp BP Pulse Ox 97.5 F L 66 18 101/65 100 11/16/17 20:07 11/16/17 23:30 11/16/17 20:07 11/16/17 21:23 11/16/17 20:07 Intake and Output: 11/16/17 11/17/17 18:59 06:59 Intake Total 320 Balance 320 - Medications Medications: Current Medications Albuterol/Ipratropium (Duoneb 3 Mg/0.5 Mg (3 Ml) Ud) 3 ml IH RQ4 [facility] Last Admin: 11/17/17 00:58 Dose: Not Given Amiodarone HCl (Cordarone) 200 mg PO DAILY [facility] Last Admin: 11/16/17 20:04 Dose: 200 mg Amlodipine Besylate (Norvasc) 10 mg PO DAILY [facility] Last Admin: 11/15/17 09:07 Dose: 10 mg Aspirin (Aspirin Chewable) 81 mg PO DAILY [facility] Last Admin: 11/16/17 20:03 Dose: 81 mg Calcium Carbonate (Oscal) 500 mg PO BID [facility] Last Admin: 11/16/17 20:04 Dose: 500 mg Carvedilol (Coreg) 25 mg PO BID [facility] Last Admin: 11/16/17 20:04 Dose: 25 mg Clonidine HCl (Catapres-Tts3 0.3 Mg/24 Hr) 1 patch TD Q7D@1000 [facility] Docusate Sodium (Colace) 100 mg PO DAILY [facility] Last Admin: 11/16/17 20:03 Dose: 100 mg Epoetin Tom (Procrit) 8,000 unit IV TTS [facility] Last Admin: 11/16/17 18:49 Dose: 8,000 unit Ergocalciferol (Drisdol 50,000 Intl Units Cap) 1 cap PO Q7D [facility] Last Admin: 11/14/17 21:59 Dose: Not Given Heparin Sodium (Porcine) (Heparin) 3,700 units IVP TTS [facility] Last Admin: 11/16/17 19:13 Dose: 3,700 units Hydromorphone HCl (Dilaudid) 1 mg IVP Q6H PRN PRN Reason: Pain, moderate (4-7) Last Admin: 11/16/17 20:08 Dose: 1 mg Insulin Glargine (Lantus) 10 unit SC HS [facility] Last Admin: 11/16/17 22:23 Dose: Not Given Insulin Human Regular (Novolin R) 0 unit SC ACHS [facility] PRN Reason: Protocol Last Admin: 11/16/17 21:26 Dose: Not Given Isosorbide Mononitrate (Imdur) 60 mg PO DAILY [facility] Last Admin: 11/16/17 21:26 Dose: 60 mg Levetiracetam (Keppra) 500 mg PO BID [facility] Last Admin: 11/16/17 20:04 Dose: 500 mg Montelukast Sodium (Singulair) 10 mg PO HS [facility] Last Admin: 11/16/17 21:20 Dose: 10 mg Pantoprazole Sodium (Protonix Ec Tab) 20 mg PO DAILY [facility] Last Admin: 11/16/17 09:56 Dose: 20 mg Ranolazine (Ranexa) 500 mg PO BID [facility] Last Admin: 11/16/17 20:03 Dose: 500 mg Rosuvastatin Calcium (Crestor) 10 mg PO HS [facility] Last Admin: 11/16/17 21:20 Dose: 10 mg Sertraline HCl (Zoloft) 50 mg PO DAILY [facility] Last Admin: 11/16/17 09:47 Dose: 50 mg Vitamin B Complex/Vit C/Folic Acid (Nephro-Courtney) 1 tab PO 0800 [facility] Last Admin: 11/16/17 09:47 Dose: 1 tab - Labs Labs: 11/14/17 19:26 11/16/17 16:50 Assessment and Plan (1) Seizures Status: Acute (2) Acute non-ST segment elevation myocardial infarction Status: Chronic (3) CVA (cerebral vascular accident) Status: Chronic (4) Migraine Status: Chronic
[2017-11-17] MEDS: HYDROmorphone 1 mg/ml ISec IVP PRN ×4 (02:06→20:22)
[2017-11-17] MEDS: (Novolin R) Insulin Human Regular 100 units/ml vial SC SCH ×4 (08:12→22:02)
[2017-11-17] MEDS: Multivitamin Vitamin B Complex (Nephro-Vite) Tab PO SCH (08:19)
[2017-11-17] MEDS: Ranolazine 500 mg Extended Release Tablets PO SCH ×2 (11:00→18:05)
[2017-11-17] MEDS: Pantoprazole 20 mg EC Tab PO SCH (11:00)
[2017-11-17] MEDS ORDERED: Lidocaine 2% Jelly (30 ml) TOP ONE (11:26)
--- NOTE | 2017-11-17 11:32 | CP.PCM.PN ---
Subjective - Date & Time of Evaluation Date of Evaluation: 11/17/17 Time of Evaluation: 11:30 - Subjective Subjective: pain back dizzy no mor seizers Objective - Vital Signs/Intake and Output Vital Signs (last 24 hours): Temp Pulse Resp BP Pulse Ox 97.6 F 68 20 150/68 100 11/17/17 08:37 11/17/17 08:37 11/17/17 08:37 11/17/17 11:00 11/17/17 08:37 Intake and Output: 11/17/17 11/17/17 06:59 18:59 Intake Total 320 Balance 320 - Medications Medications: Current Medications Albuterol/Ipratropium (Duoneb 3 Mg/0.5 Mg (3 Ml) Ud) 3 ml IH RQ4 [facility] Last Admin: 11/17/17 04:06 Dose: Not Given Amiodarone HCl (Cordarone) 200 mg PO DAILY [facility] Last Admin: 11/17/17 11:00 Dose: 200 mg Amlodipine Besylate (Norvasc) 10 mg PO DAILY [facility] Last Admin: 11/17/17 11:00 Dose: 10 mg Aspirin (Aspirin Chewable) 81 mg PO DAILY [facility] Last Admin: 11/17/17 11:00 Dose: 81 mg Calcium Carbonate (Oscal) 500 mg PO BID [facility] Last Admin: 11/17/17 11:00 Dose: 500 mg Carvedilol (Coreg) 25 mg PO BID [facility] Last Admin: 11/17/17 11:00 Dose: 25 mg Clonidine HCl (Catapres-Tts3 0.3 Mg/24 Hr) 1 patch TD Q7D@1000 [facility] Docusate Sodium (Colace) 100 mg PO DAILY [facility] Last Admin: 11/17/17 11:00 Dose: 100 mg Epoetin Tom (Procrit) 8,000 unit IV TTS [facility] Last Admin: 11/16/17 18:49 Dose: 8,000 unit Ergocalciferol (Drisdol 50,000 Intl Units Cap) 1 cap PO Q7D [facility] Last Admin: 11/14/17 21:59 Dose: Not Given Heparin Sodium (Porcine) (Heparin) 3,700 units IVP TTS [facility] Last Admin: 11/16/17 19:13 Dose: 3,700 units Hydromorphone HCl (Dilaudid) 1 mg IVP Q6H PRN PRN Reason: Pain, moderate (4-7) Last Admin: 11/17/17 08:16 Dose: 1 mg Insulin Glargine (Lantus) 10 unit SC [facility] Last Admin: 11/16/17 22:23 Dose: Not Given Insulin Human Regular (Novolin R) 0 unit SC [facility] PRN Reason: Protocol Last Admin: 11/17/17 08:12 Dose: 4 unit Isosorbide Mononitrate (Imdur) 60 mg PO DAILY [facility] Last Admin: 11/17/17 11:00 Dose: 60 mg Levetiracetam (Keppra) 500 mg PO BID [facility] Last Admin: 11/17/17 11:00 Dose: 500 mg Lidocaine HCl (Xylocaine 2%) 2 ea TOP ONCE ONE Stop: 11/17/17 11:27 Montelukast Sodium (Singulair) 10 mg PO [facility] Last Admin: 11/16/17 21:20 Dose: 10 mg Pantoprazole Sodium (Protonix Ec Tab) 20 mg PO DAILY [facility] Last Admin: 11/17/17 11:00 Dose: 20 mg Ranolazine (Ranexa) 500 mg PO BID [facility] Last Admin: 11/17/17 11:00 Dose: 500 mg Rosuvastatin Calcium (Crestor) 10 mg PO [facility] Last Admin: 11/16/17 21:20 Dose: 10 mg Sertraline HCl (Zoloft) 50 mg PO DAILY [facility] Last Admin: 11/16/17 09:47 Dose: 50 mg Vitamin B Complex/Vit C/Folic Acid (Nephro-Courtney) 1 tab PO 0800 [facility] Last Admin: 11/17/17 08:19 Dose: 1 tab - Labs Labs: 11/14/17 19:26 11/16/17 16:50 - Constitutional Appears: Non-toxic - Head Exam Head Exam: ATRAUMATIC - Eye Exam Eye Exam: Conjunctival injection - ENT Exam ENT Exam: Mucous Membranes Moist - Neck Exam Neck Exam: Full ROM - Respiratory Exam Respiratory Exam: Clear to Ausculation Bilateral - Cardiovascular Exam Cardiovascular Exam: REGULAR RHYTHM - GI/Abdominal Exam GI & Abdominal Exam: Normal Bowel Sounds - Rectal Exam Rectal Exam: NORMAL INSPECTION - Back Exam Back Exam: CVA tenderness (L) - Psychiatric Exam Psychiatric exam: Normal Affect - Skin Skin Exam: Pallor Assessment and Plan - Assessment and Plan (Free Text) Assessment: back pain dizziness seiser cad chf esrf dm htn Plan: as per orders
[2017-11-17] MEDS: Lidocaine 5% Patch TD SCH (14:24)
[2017-11-17] MEDS: (Lantus) Insulin Glargine, Recombinant SC SCH (22:02)
[2017-11-18] MEDS: Albuterol-Ipratrop 3 mg / 0.5 (3 ml) UD IH SCH ×6 (00:51→19:45)
[2017-11-18] MEDS: HYDROmorphone 1 mg/ml ISec IVP PRN ×4 (02:22→20:53)
[2017-11-18] MEDS: Multivitamin Vitamin B Complex (Nephro-Vite) Tab PO SCH (08:02)
[2017-11-18] MEDS: (Novolin R) Insulin Human Regular 100 units/ml vial SC SCH ×3 (08:02→22:00)
--- NOTE | 2017-11-18 10:47 | VASCLAB ---
PROCEDURE: HISTORY: Stroke COMPARISON: None available. TECHNIQUE: Grayscale and duplex Doppler evaluation of the cervical carotid and vertebral arteries were performed. The common carotid, carotid bifurcations and cervical Internal Carotid Artery (ICA) and proximal External Carotid Artery (ECA) were evaluated. The vertebral arteries were evaluated for gross patency and flow direction. Report prepared by NATTY Albert FINDINGS: RIGHT CAROTID ARTERIES: 1. Common Carotid Artery: Moderate plaque formation of the right CCA which does not result in a hemodynamically significant stenosis. Maximum Peak Systolic velocity: 92. Cm/sec: End-diastolic velocity 16.5 cm/sec. 2. Carotid Bifurcation: Calcific plaque formation. Maximum Peak Systolic velocity: 87.3 cm/sec: End-diastolic velocity 15.5 cm/sec. 3. Internal Carotid Artery: Moderate plaque formation of the left proximal ICA which does not result in hemodynamically significant stenosis. Plaque description: Calcific 3.1. Proximal Segment: Peak systolic velocity 83.6 cm/sec: End-diastolic velocity 23.3 cm/sec - % stenosis 16-49% 3.2. Middle Segment: Peak systolic velocity 73.7 cm/sec: End-diastolic velocity 22.0 cm/sec - % stenosis 0-15% 3.3. Distal Segment: Peak systolic velocity 96.0 cm/sec: End-diastolic velocity 27.3 cm/sec - % stenosis 0-15% 4. External Carotid Artery: Mild plaque formation of the right proximal ECA which does not result in a hemodynamically significant stenosis. Peak systolic velocity 92.2 cm/sec 5. ICA/CCA Ratio: 1.5 LEFT CAROTID ARTERIES: 1. Common Carotid Artery: Moderate plaque formation of the left CCA which does not results in a hemodynamically significant stenosis. Maximum Peak Systolic velocity: 121 cm/sec: End-diastolic velocity 12.8 cm/sec. 2. Carotid Bifurcation: Calcific plaque formation. Maximum Peak Systolic velocity: 93.5 cm/sec: End-diastolic velocity 9.5 cm/sec. 3. Internal Carotid Artery: Mild plaque formation of the left proximal proximal ICA which does not result in a hemodynamically significant stenosis. Plaque description: Calcific 3.1. Proximal Segment: Peak systolic velocity 89.4 cm/sec: End-diastolic velocity 8.5 cm/sec - % stenosis 0-15% 3.2. Middle Segment: Peak systolic velocity 56.4 cm/sec: End-diastolic velocity 13.7 cm/sec - % stenosis 0-15% 3.3. Distal Segment: Peak systolic velocity 53.9 cm/sec: End-diastolic velocity 14.4 cm/sec - % stenosis 0-15% 4. External Carotid Artery: Moderate plaque formation of the left ECA which does not result in hemodynamically significant stenosis. Peak systolic velocity 83.6 cm/sec 5. ICA/CCA Ratio: 0.8 VERTEBRAL ARTERIES: 1. Right Vertebral Artery: The right vertebral artery flow direction is antegrade. 2. Left Vertebral Artery: The left vertebral artery flow direction is antegrade. OTHER FINDINGS: 1. Right Brachial Blood pressure: mmHg. 2. Left Brachial Blood pressure: mmHg. IMPRESSION: RIGHT: Duplex scan suggest mild stenosis (16%-49%) of the right extracranial carotid arteries. LEFT: Duplex scan does not suggest hemodynamically significant stenosis of the left extracranial carotid arteries.
[2017-11-18] MEDS: Ranolazine 500 mg Extended Release Tablets PO SCH ×2 (10:55→21:36)
[2017-11-18] MEDS: Pantoprazole 20 mg EC Tab PO SCH (10:55)
[2017-11-18] MEDS: Lidocaine 5% Patch TD SCH (10:56)
--- NOTE | 2017-11-18 13:01 | MRI ---
PROCEDURE: MRI BRAIN WITHOUT CONTRAST HISTORY: Syncope, old CVA COMPARISON: Noncontrast head CT from 08/09/2013 TECHNIQUE: Multiplanar, multisequence MR images of the brain were obtained without intravenous contrast enhancement. FINDINGS: HEMORRHAGE: None DWI: No evidence of an acute or early subacute infarction. BRAIN PARENCHYMA: There are multifocal T2/FLAIR hyperintense foci in the subcortical deep and periventricular white matter. The midline sagittal structures are normal. There is no mass, mass effect or abnormal extra-axial fluid collection. VENTRICLES: There is mild global parenchymal volume loss and proportionate enlargement of the ventricles and cortical sulci. CRANIUM: There is normal bone marrow signal pattern. ORBITS: There is chronic T1 hyperintense and T2 hyperintense material in bilateral posterior temporalis likely related to old hemorrhage and possibly retinal detachment on the left. PARANASAL SINUSES/MASTOIDS: Predominantly clear. VASCULAR SYSTEM: There are normal signal voids in the larger intracranial arteries. OTHER FINDINGS: None. IMPRESSION: 1. No acute intracranial abnormality. 2. Mild chronic microangiopathic changes and mild global parenchymal volume loss, advanced for the patient's age.
--- NOTE | 2017-11-18 13:16 | MRI ---
PROCEDURE: MR LUMBAR SPINE WITHOUT CONTRAST HISTORY: Back pain COMPARISON: None available. TECHNIQUE: Multiecho multiplanar sequences were performed through the lumbar spine without the use of intravenous contrast. FINDINGS: There is 6 mm degenerative anterior listhesis of L5 on S1. There is no acute fracture. There are old bilateral pars interarticularis defects at L5. Bone marrow signal is within normal limits. There is are old mild compression deformities in the T11 and T12 vertebral bodies. There is mild angular kyphosis at T11-12 related to old fracture deformity. The conus medullaris terminates at a normal level. The nerve roots of cauda equina are normal. The paraspinous soft tissues are normal. Imaged portion of the retroperitoneum is within normal limits. There is apparent circumferential mural thickening of the urinary bladder wall. T11-12: Diffuse posterior disc bulge abuts the ventral cord and there is moderate canal stenosis at this level. No neural foraminal narrowing. T12-L1: No disc herniation, spinal canal stenosis or neural foraminal narrowing. L1-2: No disc herniation, spinal canal stenosis or neural foraminal narrowing. L2-3: Mild posterior disc bulge and mild ligamentum flavum infolding without spinal canal stenosis. Mild bilateral facet arthropathy without neural foraminal narrowing. L3-4: Diffuse posterior disc bulge without spinal canal stenosis. Mild bilateral facet arthropathy without neural foraminal narrowing. L4-5: Diffuse posterior disc bulge without spinal canal stenosis. No neural foraminal narrowing. L5-S1: Posterior disc bulge without spinal canal stenosis. Mild neural foraminal narrowing. OTHER FINDINGS: None. IMPRESSION: 1. Mild multilevel degenerative disc disease, worse at T11-12 with a diffuse posterior disc bulge with abuts the ventral cord with resultant moderate spinal canal stenosis. Old mild compression deformities in the T11 and T12 vertebral bodies with mild angular kyphosis contributes to the spinal canal stenosis. 2. Chronic bilateral pars interarticularis defects at L5 with 6 mm anterior listhesis of L5 on S1. Mild diffuse disc bulge at L5-S1 and mild bilateral neural foraminal narrowing without spinal canal stenosis.
--- NOTE | 2017-11-18 13:17 | CP.PCM.PN ---
Subjective - Date & Time of Evaluation Date of Evaluation: 11/18/17 Time of Evaluation: 13:16 - Subjective Subjective: Nephrology Consultation Note: Assessment: Stable syncope, fluid overload/pulmonary congestion, missed HD chronic chest pain, A flutter Diabetic chronic Kidney Disease (E11.22) Hypertensive Chronic Kidney Disease (I12.0) End stage renal disease (N18.6) dependence on hemodialysis (Z99.2) (TTS) via AVF Anemia (D64.9), Hyperphosphatemia (E83.39), Secondary Hyperparathyroidism (E21.1 ), HTN (I12.0) CAD s/p CABG, diastolic CHF, parox A flutter/fib, intra-cardiac thrombus, hx of Heparin induced thrombocytopenia, hx of seizure, blindness Plan: Continue with Nephrovite 1 tab/day. next HD tomorrow as per TTS schedule PRBC as needed for anemia. plan for Epogen with HD Continue with phos binders home dose BP control with meds as ordered. Glycemic control, Dialysis consistent diet Further work up/management as per primary team Dose meds/antibiotics (if needed) for ESRD status. Avoid fleets enema/magnesium based laxatives. Thanks for allowing me to participate in care of your patient. Will follow patient with you. Please call if any Qs Dr Eric Tempel Office: [phone] Chief Complaint; I fainted HPI: Pt is a 37 y/o transgender with hx of ESRD on hemodialysis (TTS) via permacath, chronic anemia, hyperphosphatemia, secondary hyperparathyroidism, Diabetes Mellitus, hypertension, CAD s/p CABG, diastolic CHF, pA flutter/fib, intra-cardiac thrombus, Heparin induced thrombocytopenia in past presented with complaints of passing out and syncope yesterday. also with chronic chest pain/ SOB. pt with frequent and multiple hospitalizations for it denies chest pain, denies palpitation, c/o chronic shortness of breath ROS: All other negative except as in HPI. feels better now. chest pain better. SOB better. denies palpitations. c/o low back pain Physical Examination: General Appearance: Comfortable, in no acute respiratory distress, co-operative . Vitals reviewed and noted as below Head; Atraumatic, normocephalic ENT: no ulcers no thrush. Tongue is midline. Oropharynx: no rash or ulcers. EYES: Pt is blind both eyes Neck; supple no lymphadenopathy, no thyromegaly or bruit Lungs: Normal respiratory rate/effort. Breath sounds bilateral equal clear with few basal crackles Heart: Normal rate. s1s2 normal. No rub or gallop. Extremities: no edema. No varicose veins. has b/l BKA Neurological: Patient is alert, awake and oriented to person, place and time. No focal deficit. Strength bilateral appropriate and equal Skin: Warm and dry. Normal turgor. No rash. Palpitation: Normal elasticity for age Abdomen: Abdomen is soft. Bowel sounds +. There is no abdominal tenderness, no guarding/rigidity or organomegaly Psych: limited insight and has normal affect/mood MSK: no joint tenderness or swelling. Digits and nails normal, no deformity : kidney or bladder not palpable Access: permacath Labs/imaging reviewed. Past medical history, past surgical history, family history, social history, allergy reviewed and noted as below Family Hx: no hx of CKD. Non contributory Objective - Vital Signs/Intake and Output Vital Signs (last 24 hours): Temp Pulse Resp BP Pulse Ox 97.9 F 61 20 163/93 H 98 11/18/17 07:00 11/18/17 07:55 11/18/17 07:00 11/18/17 10:56 11/18/17 07:00 - Medications Medications: Current Medications Albuterol/Ipratropium (Duoneb 3 Mg/0.5 Mg (3 Ml) Ud) 3 ml IH RQ4 [facility] Last Admin: 11/18/17 08:31 Dose: 3 ml Amiodarone HCl (Cordarone) 200 mg PO DAILY [facility] Last Admin: 11/18/17 10:55 Dose: 200 mg Amlodipine Besylate (Norvasc) 10 mg PO DAILY [facility] Last Admin: 11/18/17 10:56 Dose: 10 mg Aspirin (Aspirin Chewable) 81 mg PO DAILY [facility] Last Admin: 11/18/17 10:55 Dose: 81 mg Calcium Carbonate (Oscal) 500 mg PO BID [facility] Last Admin: 11/18/17 10:55 Dose: 500 mg Carvedilol (Coreg) 25 mg PO BID [facility] Last Admin: 11/18/17 10:56 Dose: 25 mg Clonidine HCl (Catapres-Tts3 0.3 Mg/24 Hr) 1 patch TD Q7D@1000 [facility] Docusate Sodium (Colace) 100 mg PO DAILY [facility] Last Admin: 11/18/17 10:55 Dose: 100 mg Epoetin Tom (Procrit) 8,000 unit IV TTS [facility] Last Admin: 11/16/17 18:49 Dose: 8,000 unit Ergocalciferol (Drisdol 50,000 Intl Units Cap) 1 cap PO Q7D [facility] Last Admin: 11/14/17 21:59 Dose: Not Given Heparin Sodium (Porcine) (Heparin) 3,700 units IVP TTS [facility] Last Admin: 11/16/17 19:13 Dose: 3,700 units Hydromorphone HCl (Dilaudid) 1 mg IVP Q6H PRN PRN Reason: Pain, moderate (4-7) Last Admin: 11/18/17 08:34 Dose: 1 mg Insulin Glargine (Lantus) 8 unit SC HS [facility] Last Admin: 11/17/17 22:02 Dose: 8 units Insulin Human Regular (Novolin R) 0 unit SC [facility] PRN Reason: Protocol Last Admin: 11/18/17 08:02 Dose: 4 unit Isosorbide Mononitrate (Imdur) 60 mg PO DAILY [facility] Last Admin: 11/18/17 10:54 Dose: 60 mg Levetiracetam (Keppra) 500 mg PO BID [facility] Last Admin: 11/18/17 10:55 Dose: 500 mg Lidocaine (Lidoderm) 1 ea TD DAILY [facility] Last Admin: 11/18/17 10:56 Dose: 1 ea Montelukast Sodium (Singulair) 10 mg PO [facility] Last Admin: 11/17/17 21:08 Dose: 10 mg Pantoprazole Sodium (Protonix Ec Tab) 20 mg PO DAILY [facility] Last Admin: 11/18/17 10:55 Dose: 20 mg Ranolazine (Ranexa) 500 mg PO BID [facility] Last Admin: 11/18/17 10:55 Dose: 500 mg Rosuvastatin Calcium (Crestor) 10 mg PO [facility] Last Admin: 11/17/17 21:08 Dose: 10 mg Sertraline HCl (Zoloft) 50 mg PO DAILY [facility] Last Admin: 11/18/17 10:55 Dose: 50 mg Vitamin B Complex/Vit C/Folic Acid (Nephro-Courtney) 1 tab PO 0800 [facility] Last Admin: 11/18/17 08:02 Dose: 1 tab - Labs Labs: 11/14/17 19:26 11/16/17 16:50
[2017-11-18 16:27] VITALS: O2SAT 100
--- NOTE | 2017-11-18 18:10 | CP.PCM.PN ---
Subjective - Date & Time of Evaluation Date of Evaluation: 11/18/17 Time of Evaluation: 18:08 - Subjective Subjective: pain back wants more pain med had mri today Objective - Vital Signs/Intake and Output Vital Signs (last 24 hours): Temp Pulse Resp BP Pulse Ox 97.5 F L 60 20 123/66 100 11/18/17 15:00 11/18/17 15:00 11/18/17 15:00 11/18/17 15:00 11/18/17 15:00 - Medications Medications: Current Medications Albuterol/Ipratropium (Duoneb 3 Mg/0.5 Mg (3 Ml) Ud) 3 ml IH RQ4 [facility] Last Admin: 11/18/17 15:34 Dose: Not Given Amiodarone HCl (Cordarone) 200 mg PO DAILY [facility] Last Admin: 11/18/17 10:55 Dose: 200 mg Amlodipine Besylate (Norvasc) 10 mg PO DAILY [facility] Last Admin: 11/18/17 10:56 Dose: 10 mg Aspirin (Aspirin Chewable) 81 mg PO DAILY [facility] Last Admin: 11/18/17 10:55 Dose: 81 mg Calcium Carbonate (Oscal) 500 mg PO BID [facility] Last Admin: 11/18/17 10:55 Dose: 500 mg Carvedilol (Coreg) 25 mg PO BID [facility] Last Admin: 11/18/17 10:56 Dose: 25 mg Clonidine HCl (Catapres-Tts3 0.3 Mg/24 Hr) 1 patch TD Q7D@1000 [facility] Docusate Sodium (Colace) 100 mg PO DAILY [facility] Last Admin: 11/18/17 10:55 Dose: 100 mg Epoetin Tom (Procrit) 8,000 unit IV TTS [facility] Last Admin: 11/16/17 18:49 Dose: 8,000 unit Ergocalciferol (Drisdol 50,000 Intl Units Cap) 1 cap PO Q7D [facility] Last Admin: 11/14/17 21:59 Dose: Not Given Heparin Sodium (Porcine) (Heparin) 3,700 units IVP TTS [facility] Last Admin: 11/16/17 19:13 Dose: 3,700 units Hydromorphone HCl (Dilaudid) 1 mg IVP Q6H PRN PRN Reason: Pain, moderate (4-7) Last Admin: 11/18/17 14:41 Dose: 1 mg Insulin Glargine (Lantus) 8 unit SC [facility] Last Admin: 11/17/17 22:02 Dose: 8 units Insulin Human Regular (Novolin R) 0 unit SC [facility] PRN Reason: Protocol Last Admin: 11/18/17 17:00 Dose: Not Given Isosorbide Mononitrate (Imdur) 60 mg PO DAILY [facility] Last Admin: 11/18/17 10:54 Dose: 60 mg Levetiracetam (Keppra) 500 mg PO BID [facility] Last Admin: 11/18/17 10:55 Dose: 500 mg Lidocaine (Lidoderm) 1 ea TD DAILY [facility] Last Admin: 11/18/17 10:56 Dose: 1 ea Montelukast Sodium (Singulair) 10 mg PO [facility] Last Admin: 11/17/17 21:08 Dose: 10 mg Pantoprazole Sodium (Protonix Ec Tab) 20 mg PO DAILY [facility] Last Admin: 11/18/17 10:55 Dose: 20 mg Ranolazine (Ranexa) 500 mg PO BID [facility] Last Admin: 11/18/17 10:55 Dose: 500 mg Rosuvastatin Calcium (Crestor) 10 mg PO [facility] Last Admin: 11/17/17 21:08 Dose: 10 mg Sertraline HCl (Zoloft) 50 mg PO DAILY [facility] Last Admin: 11/18/17 10:55 Dose: 50 mg Vitamin B Complex/Vit C/Folic Acid (Nephro-Courtney) 1 tab PO 0800 [facility] Last Admin: 11/18/17 08:02 Dose: 1 tab - Labs Labs: 11/14/17 19:26 11/16/17 16:50 - Constitutional Appears: Non-toxic - Head Exam Head Exam: ATRAUMATIC - Eye Exam Eye Exam: Conjunctival injection, Normal appearance - ENT Exam ENT Exam: Mucous Membranes Dry, Mucous Membranes Moist - Neck Exam Neck Exam: Full ROM - Respiratory Exam Respiratory Exam: Clear to Ausculation Bilateral - Cardiovascular Exam Cardiovascular Exam: REGULAR RHYTHM - GI/Abdominal Exam GI & Abdominal Exam: Soft - Rectal Exam Rectal Exam: NORMAL INSPECTION - Back Exam Back Exam: CVA tenderness (L) - Neurological Exam Neurological Exam: Awake - Skin Skin Exam: Pallor Assessment and Plan - Assessment and Plan (Free Text) Assessment: ac loss of conscious seizer esrf aneamia htn back pain Plan: cont as per orders
[2017-11-18] MEDS: (Lantus) Insulin Glargine, Recombinant SC SCH (22:00)
--- NOTE | 2017-11-19 00:09 | CP.PCM.PN ---
Subjective - Date & Time of Evaluation Date of Evaluation: 11/18/17 Time of Evaluation: 21:10 - Subjective Subjective: He is doing the same, no change, no syncopal spells, no seizures. He has low back pain and is seeking pain medicine. Patient is a transgender and is suffering from anxiety and depression. IMPRESSION of MRI of LS spine: 1. Mild multilevel degenerative disc disease, worse at T11-12 with a diffuse posterior disc bulge with abuts the ventral cord with resultant moderate spinal canal stenosis. Old mild compression deformities in the T11 and T12 vertebral bodies with mild angular kyphosis contributes to the spinal canal stenosis. 2. Chronic bilateral pars interarticularis defects at L5 with 6 mm anterior listhesis of L5 on S1. Mild diffuse disc bulge at L5-S1 and mild bilateral neural foraminal narrowing without spinal canal stenosis. IMPRESSION of MRI Brain: 1. No acute intracranial abnormality. 2. Mild chronic microangiopathic changes and mild global parenchymal volume loss , advanced for the patient's age. Labs are showing anemia, fluctuating Blood Glucose level normal Vitamin D Level at 42.8, negative JOEL Physical Exam is unchanged. Negative EEG awake and drowsy. Objective - Vital Signs/Intake and Output Vital Signs (last 24 hours): Temp Pulse Resp BP Pulse Ox 97.5 F L 60 20 171/83 H 100 11/18/17 15:00 11/18/17 17:00 11/18/17 15:00 11/18/17 21:34 11/18/17 15:00 - Medications Medications: Current Medications Albuterol/Ipratropium (Duoneb 3 Mg/0.5 Mg (3 Ml) Ud) 3 ml IH RQ4 [facility] Last Admin: 11/18/17 19:45 Dose: 3 ml Amiodarone HCl (Cordarone) 200 mg PO DAILY [facility] Last Admin: 11/18/17 10:55 Dose: 200 mg Amlodipine Besylate (Norvasc) 10 mg PO DAILY [facility] Last Admin: 11/18/17 10:56 Dose: 10 mg Aspirin (Aspirin Chewable) 81 mg PO DAILY [facility] Last Admin: 11/18/17 10:55 Dose: 81 mg Calcium Carbonate (Oscal) 500 mg PO BID [facility] Last Admin: 11/18/17 21:36 Dose: 500 mg Carvedilol (Coreg) 25 mg PO BID [facility] Last Admin: 11/18/17 21:34 Dose: 25 mg Clonidine HCl (Catapres-Tts3 0.3 Mg/24 Hr) 1 patch TD Q7D@1000 [facility] Docusate Sodium (Colace) 100 mg PO DAILY [facility] Last Admin: 11/18/17 10:55 Dose: 100 mg Epoetin Tom (Procrit) 8,000 unit IV TTS [facility] Last Admin: 11/16/17 18:49 Dose: 8,000 unit Ergocalciferol (Drisdol 50,000 Intl Units Cap) 1 cap PO Q7D [facility] Last Admin: 11/14/17 21:59 Dose: Not Given Heparin Sodium (Porcine) (Heparin) 3,700 units IVP TTS [facility] Last Admin: 11/16/17 19:13 Dose: 3,700 units Hydromorphone HCl (Dilaudid) 1 mg IVP Q6H PRN PRN Reason: Pain, moderate (4-7) Last Admin: 11/18/17 20:53 Dose: 1 mg Insulin Glargine (Lantus) 8 unit SC HS [facility] Last Admin: 11/17/17 22:02 Dose: 8 units Insulin Human Regular (Novolin R) 0 unit SC ACHS [facility] PRN Reason: Protocol Last Admin: 11/18/17 17:00 Dose: Not Given Isosorbide Mononitrate (Imdur) 60 mg PO DAILY [facility] Last Admin: 11/18/17 10:54 Dose: 60 mg Levetiracetam (Keppra) 500 mg PO BID [facility] Last Admin: 11/18/17 21:35 Dose: 500 mg Lidocaine (Lidoderm) 1 ea TD DAILY [facility] Last Admin: 11/18/17 10:56 Dose: 1 ea Montelukast Sodium (Singulair) 10 mg PO HS [facility] Last Admin: 11/18/17 21:36 Dose: 10 mg Pantoprazole Sodium (Protonix Ec Tab) 20 mg PO DAILY [facility] Last Admin: 11/18/17 10:55 Dose: 20 mg Ranolazine (Ranexa) 500 mg PO BID [facility] Last Admin: 11/18/17 21:36 Dose: 500 mg Rosuvastatin Calcium (Crestor) 10 mg PO [facility] Last Admin: 11/18/17 21:35 Dose: 10 mg Sertraline HCl (Zoloft) 50 mg PO DAILY [facility] Last Admin: 11/18/17 10:55 Dose: 50 mg Vitamin B Complex/Vit C/Folic Acid (Nephro-Courtney) 1 tab PO 0800 [facility] Last Admin: 11/18/17 08:02 Dose: 1 tab - Labs Labs: 11/14/17 19:26 11/16/17 16:50 Assessment and Plan (1) Seizures Status: Acute (2) Acute non-ST segment elevation myocardial infarction Status: Chronic (3) CVA (cerebral vascular accident) Status: Chronic (4) Migraine Status: Chronic
[2017-11-19] MEDS: HYDROmorphone 1 mg/ml ISec IVP PRN ×3 (02:55→15:01)
[2017-11-19] MEDS: (Novolin R) Insulin Human Regular 100 units/ml vial SC SCH ×3 (08:00→17:52)
[2017-11-19] MEDS: Multivitamin Vitamin B Complex (Nephro-Vite) Tab PO SCH (08:03)
[2017-11-19] MEDS: Albuterol-Ipratrop 3 mg / 0.5 (3 ml) UD IH SCH ×4 (08:09→20:20)
[2017-11-19] MEDS: Lidocaine 5% Patch TD SCH (09:05)
[2017-11-19] MEDS: Ranolazine 500 mg Extended Release Tablets PO SCH ×2 (09:06→18:29)
[2017-11-19] MEDS: Pantoprazole 20 mg EC Tab PO SCH (09:06)
--- NOTE | 2017-11-19 11:24 | CP.PCM.PN ---
Subjective - Date & Time of Evaluation Date of Evaluation: 11/19/17 Time of Evaluation: 11:23 - Subjective Subjective: Nephrology Consultation Note: Assessment: Stable syncope, fluid overload/pulmonary congestion, missed HD chronic chest pain, A flutter Diabetic chronic Kidney Disease (E11.22) Hypertensive Chronic Kidney Disease (I12.0) End stage renal disease (N18.6) dependence on hemodialysis (Z99.2) (TTS) via AVF Anemia (D64.9), Hyperphosphatemia (E83.39), Secondary Hyperparathyroidism (E21.1 ), HTN (I12.0) CAD s/p CABG, diastolic CHF, parox A flutter/fib, intra-cardiac thrombus, hx of Heparin induced thrombocytopenia, hx of seizure, blindness DJD spine Plan: Continue with Nephrovite 1 tab/day. next HD today as per TTS schedule PRBC as needed for anemia. plan for Epogen with HD Continue with phos binders home dose BP control with meds as ordered. Glycemic control, Dialysis consistent diet Further work up/management as per primary team Dose meds/antibiotics (if needed) for ESRD status. Avoid fleets enema/magnesium based laxatives. pt stable for d/c from renal perspective, when planned neuro input appreciated Thanks for allowing me to participate in care of your patient. Will follow patient with you. Please call if any Qs Dr Eric Temple Office: [phone] HPI: Pt is a 37 y/o transgender with hx of ESRD on hemodialysis (TTS) via permacath, chronic anemia, hyperphosphatemia, secondary hyperparathyroidism, Diabetes Mellitus, hypertension, CAD s/p CABG, diastolic CHF, pA flutter/fib, intra-cardiac thrombus, Heparin induced thrombocytopenia in past presented with complaints of passing out and syncope yesterday. also with chronic chest pain/ SOB. pt with frequent and multiple hospitalizations for it denies chest pain, denies palpitation, c/o chronic shortness of breath ROS: All other negative except as in HPI. feels better now. chest pain better. SOB better. denies palpitations. c/o low back pain Physical Examination: General Appearance: Comfortable, in no acute respiratory distress, co-operative . Vitals reviewed and noted as below Head; Atraumatic, normocephalic ENT: no ulcers no thrush. Tongue is midline. Oropharynx: no rash or ulcers. EYES: Pt is blind both eyes Neck; supple no lymphadenopathy, no thyromegaly or bruit Lungs: Normal respiratory rate/effort. Breath sounds bilateral equal clear with few basal crackles Heart: Normal rate. s1s2 normal. No rub or gallop. Extremities: no edema. No varicose veins. has b/l BKA Neurological: Patient is alert, awake and oriented to person, place and time. No focal deficit. Strength bilateral appropriate and equal Skin: Warm and dry. Normal turgor. No rash. Palpitation: Normal elasticity for age Abdomen: Abdomen is soft. Bowel sounds +. There is no abdominal tenderness, no guarding/rigidity or organomegaly Psych: limited insight and has normal affect/mood MSK: no joint tenderness or swelling. Digits and nails normal, no deformity : kidney or bladder not palpable Access: permacath Labs/imaging reviewed. Past medical history, past surgical history, family history, social history, allergy reviewed and noted as below Family Hx: no hx of CKD. Non contributory Objective - Vital Signs/Intake and Output Vital Signs (last 24 hours): Temp Pulse Resp BP Pulse Ox 98 F 63 20 166/92 H 100 11/19/17 07:30 11/19/17 07:30 11/19/17 07:30 11/19/17 07:30 11/19/17 07:30 Intake and Output: 11/19/17 11/19/17 06:59 18:59 Intake Total 240 Balance 240 - Medications Medications: Current Medications Albuterol/Ipratropium (Duoneb 3 Mg/0.5 Mg (3 Ml) Ud) 3 ml IH RQ4 [facility] Last Admin: 11/19/17 11:14 Dose: Not Given Amiodarone HCl (Cordarone) 200 mg PO DAILY [facility] Last Admin: 11/19/17 09:06 Dose: 200 mg Amlodipine Besylate (Norvasc) 10 mg PO DAILY [facility] Last Admin: 11/18/17 10:56 Dose: 10 mg Aspirin (Aspirin Chewable) 81 mg PO DAILY [facility] Last Admin: 11/19/17 09:06 Dose: 81 mg Calcium Carbonate (Oscal) 500 mg PO BID [facility] Last Admin: 11/19/17 09:06 Dose: 500 mg Carvedilol (Coreg) 25 mg PO BID [facility] Last Admin: 11/18/17 21:34 Dose: 25 mg Clonidine HCl (Catapres-Tts3 0.3 Mg/24 Hr) 1 patch TD Q7D@1000 [facility] Docusate Sodium (Colace) 100 mg PO DAILY [facility] Last Admin: 11/19/17 09:06 Dose: 100 mg Epoetin Tom (Procrit) 8,000 unit IV TTS [facility] Last Admin: 11/16/17 18:49 Dose: 8,000 unit Ergocalciferol (Drisdol 50,000 Intl Units Cap) 1 cap PO Q7D [facility] Last Admin: 11/14/17 21:59 Dose: Not Given Heparin Sodium (Porcine) (Heparin) 3,700 units IVP TTS [facility] Last Admin: 11/16/17 19:13 Dose: 3,700 units Hydromorphone HCl (Dilaudid) 1 mg IVP Q6H PRN PRN Reason: Pain, moderate (4-7) Last Admin: 11/19/17 09:04 Dose: 1 mg Insulin Glargine (Lantus) 8 unit SC HS [facility] Last Admin: 11/18/17 22:00 Dose: Not Given Insulin Human Regular (Novolin R) 0 unit SC ACHS [facility] PRN Reason: Protocol Last Admin: 11/18/17 22:00 Dose: Not Given Isosorbide Mononitrate (Imdur) 60 mg PO DAILY [facility] Last Admin: 11/18/17 10:54 Dose: 60 mg Levetiracetam (Keppra) 500 mg PO BID [facility] Last Admin: 11/19/17 09:06 Dose: 500 mg Lidocaine (Lidoderm) 1 ea TD DAILY [facility] Last Admin: 11/19/17 09:05 Dose: 1 ea Montelukast Sodium (Singulair) 10 mg PO HS [facility] Last Admin: 11/18/17 21:36 Dose: 10 mg Pantoprazole Sodium (Protonix Ec Tab) 20 mg PO DAILY [facility] Last Admin: 11/19/17 09:06 Dose: 20 mg Ranolazine (Ranexa) 500 mg PO BID [facility] Last Admin: 11/19/17 09:06 Dose: 500 mg Rosuvastatin Calcium (Crestor) 10 mg PO HS [facility] Last Admin: 11/18/17 21:35 Dose: 10 mg Sertraline HCl (Zoloft) 50 mg PO DAILY [facility] Last Admin: 11/18/17 10:55 Dose: 50 mg Vitamin B Complex/Vit C/Folic Acid (Nephro-Courtney) 1 tab PO 0800 [facility] Last Admin: 11/19/17 08:03 Dose: 1 tab - Labs Labs: 11/14/17 19:26 11/16/17 16:50
--- NOTE | 2017-11-19 12:21 | CP.PCM.PN ---
Subjective - Date & Time of Evaluation Date of Evaluation: 11/19/17 Time of Evaluation: 12:18 - Subjective Subjective: pt feels berer no pain no dizziness Objective - Vital Signs/Intake and Output Vital Signs (last 24 hours): Temp Pulse Resp BP Pulse Ox 98 F 63 20 166/92 H 100 11/19/17 07:30 11/19/17 07:30 11/19/17 07:30 11/19/17 07:30 11/19/17 07:30 Intake and Output: 11/19/17 11/19/17 06:59 18:59 Intake Total 240 Balance 240 - Medications Medications: Current Medications Albuterol/Ipratropium (Duoneb 3 Mg/0.5 Mg (3 Ml) Ud) 3 ml IH RQ4 [facility] Last Admin: 11/19/17 11:14 Dose: Not Given Amiodarone HCl (Cordarone) 200 mg PO DAILY [facility] Last Admin: 11/19/17 09:06 Dose: 200 mg Amlodipine Besylate (Norvasc) 10 mg PO DAILY [facility] Last Admin: 11/19/17 10:28 Dose: Not Given Aspirin (Aspirin Chewable) 81 mg PO DAILY [facility] Last Admin: 11/19/17 09:06 Dose: 81 mg Calcium Carbonate (Oscal) 500 mg PO BID [facility] Last Admin: 11/19/17 09:06 Dose: 500 mg Carvedilol (Coreg) 25 mg PO BID [facility] Last Admin: 11/19/17 10:26 Dose: Not Given Clonidine HCl (Catapres-Tts3 0.3 Mg/24 Hr) 1 patch TD Q7D@1000 [facility] Docusate Sodium (Colace) 100 mg PO DAILY [facility] Last Admin: 11/19/17 09:06 Dose: 100 mg Epoetin Tom (Procrit) 8,000 unit IV TTS [facility] Last Admin: 11/16/17 18:49 Dose: 8,000 unit Ergocalciferol (Drisdol 50,000 Intl Units Cap) 1 cap PO Q7D [facility] Last Admin: 11/14/17 21:59 Dose: Not Given Heparin Sodium (Porcine) (Heparin) 3,700 units IVP TTS [facility] Last Admin: 11/16/17 19:13 Dose: 3,700 units Hydromorphone HCl (Dilaudid) 1 mg IVP Q6H PRN PRN Reason: Pain, moderate (4-7) Last Admin: 11/19/17 09:04 Dose: 1 mg Insulin Glargine (Lantus) 8 unit SC [facility] Last Admin: 11/18/17 22:00 Dose: Not Given Insulin Human Regular (Novolin R) 0 unit SC [facility] PRN Reason: Protocol Last Admin: 11/19/17 11:55 Dose: 2 unit Isosorbide Mononitrate (Imdur) 60 mg PO DAILY [facility] Last Admin: 11/19/17 10:27 Dose: Not Given Levetiracetam (Keppra) 500 mg PO BID [facility] Last Admin: 11/19/17 09:06 Dose: 500 mg Lidocaine (Lidoderm) 1 ea TD DAILY [facility] Last Admin: 11/19/17 09:05 Dose: 1 ea Montelukast Sodium (Singulair) 10 mg PO [facility] Last Admin: 11/18/17 21:36 Dose: 10 mg Pantoprazole Sodium (Protonix Ec Tab) 20 mg PO DAILY [facility] Last Admin: 11/19/17 09:06 Dose: 20 mg Ranolazine (Ranexa) 500 mg PO BID [facility] Last Admin: 11/19/17 09:06 Dose: 500 mg Rosuvastatin Calcium (Crestor) 10 mg PO [facility] Last Admin: 11/18/17 21:35 Dose: 10 mg Sertraline HCl (Zoloft) 50 mg PO DAILY [facility] Last Admin: 11/19/17 09:06 Dose: 50 mg Vitamin B Complex/Vit C/Folic Acid (Nephro-Courtney) 1 tab PO 0800 [facility] Last Admin: 11/19/17 08:03 Dose: 1 tab - Labs Labs: 11/14/17 19:26 11/16/17 16:50 - Constitutional Appears: Non-toxic - Eye Exam Eye Exam: Conjunctival injection - ENT Exam ENT Exam: Mucous Membranes Dry - Neck Exam Neck Exam: Full ROM - Respiratory Exam Respiratory Exam: Clear to Ausculation Bilateral - Cardiovascular Exam Cardiovascular Exam: REGULAR RHYTHM - GI/Abdominal Exam GI & Abdominal Exam: Normal Bowel Sounds - Rectal Exam Rectal Exam: NORMAL INSPECTION - Extremities Exam Additional comments: bilateral amputation - Back Exam Back Exam: NORMAL INSPECTION - Psychiatric Exam Psychiatric exam: Normal Affect - Skin Skin Exam: Pallor Assessment and Plan - Assessment and Plan (Free Text) Assessment: s/p syncope cad dm esrf htn Plan: will d/c [facility] today after dialysis
--- NOTE | 2017-11-19 12:36 | CP.PCM.CON ---
History of Present Illness - History of Present Illness History of Present Illness: 7 y/o male with a history of end stage renal disease, presents to the ER complaining of chest pain. patient with numerus hospitalizations. Presents with a syncopal episode in the context of HD Currently no CP Denies associated diaphoresis, shortness of breath, vomiting, or nausea. Patient scheduled for dialysis today. EK09/09/17; NSR, LVH, chronic ST changes lateral, old inferior infarct. 10/02/17: course AFIB: rate controlled, chronic LVH with strain 10/13/17: NSR, LVH, chronic lateral strain\ 10/30/17; NSR, old inferior infarct, septal infarct, chronic LVH with lateral strain pattern. 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 moderate pulmonary stenosis Chronic diastolic dysfunction grade 3 Chronic pain Hx of non-compliance with meds and on occasion HD Past Patient History - Infectious Disease Hx of Infectious Diseases: None - Tetanus Immunizations Tetanus Immunization: >10 years Ago - Past Medical History & Family History Past Medical History?: Yes - Past Social History Smoking Status: Never Smoked - CARDIAC Hx Atrial Fibrillation: Yes Hx Cardia Arrhythmia: Yes Hx Congestive Heart Failure: Yes Hx Hypercholesterolemia: Yes Hx Hypertension: Yes - PULMONARY Hx Asthma: Yes Hx Bronchitis: Yes Hx Chronic Obstructive Pulmonary Disease (COPD): Yes Hx Pneumonia: Yes - NEUROLOGICAL Hx Alzheimer's Disease: Yes Hx Seizures: Yes - HEENT Hx HEENT Problems: Yes Hx Blind: Yes (legally blind) Hx Cataracts: Yes - RENAL Hx Chronic Kidney Disease: Yes Hx Kidney Stones: No - ENDOCRINE/METABOLIC Hx Hyperthyroidism: No Hx Hypothyroidism: Yes - HEMATOLOGICAL/ONCOLOGICAL Hx Anemia: Yes - INTEGUMENTARY Hx Dermatological Problems: No - MUSCULOSKELETAL/RHEUMATOLOGICAL Hx Arthritis: Yes - GASTROINTESTINAL Hx Gall Bladder Disease: Yes Hx Gastritis: Yes - GENITOURINARY/GYNECOLOGICAL Hx Sexually Transmitted Disorders: No - PSYCHIATRIC Hx Anxiety: Yes Hx Depression: Yes Hx Substance Use: No - SURGICAL HISTORY Hx Cholecystectomy: Yes (2011) 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/2009) Hx Coronary Stent: Yes - ANESTHESIA Hx Anesthesia: Yes Hx Anesthesia Reactions: No Hx Malignant Hyperthermia: No Meds Allergies/Adverse Reactions: Allergies Allergy/AdvReac Type Severity Reaction Status Date / Time acetaminophen [From Percocet] Allergy RASH Verified 11/14/17 16:28 atenolol Allergy RASH Verified 11/14/17 16:28 digoxin Allergy RASH Verified 11/14/17 16:28 milk Allergy ITCHING Verified 11/14/17 16:28 morphine Allergy RASH Verified 11/14/17 16:28 oxycodone HCl [From Percocet] Allergy RASH Verified 11/14/17 16:28 - Medications Medications: Current Medications Albuterol/Ipratropium (Duoneb 3 Mg/0.5 Mg (3 Ml) Ud) 3 ml IH RQ4 [facility] Last Admin: 11/19/17 11:14 Dose: Not Given Amiodarone HCl (Cordarone) 200 mg PO DAILY [facility] Last Admin: 11/19/17 09:06 Dose: 200 mg Amlodipine Besylate (Norvasc) 10 mg PO DAILY [facility] Last Admin: 11/19/17 10:28 Dose: Not Given Aspirin (Aspirin Chewable) 81 mg PO DAILY [facility] Last Admin: 11/19/17 09:06 Dose: 81 mg Calcium Carbonate (Oscal) 500 mg PO BID [facility] Last Admin: 11/19/17 09:06 Dose: 500 mg Carvedilol (Coreg) 25 mg PO BID [facility] Last Admin: 11/19/17 10:26 Dose: Not Given Clonidine HCl (Catapres-Tts3 0.3 Mg/24 Hr) 1 patch TD Q7D@1000 [facility] Docusate Sodium (Colace) 100 mg PO DAILY [facility] Last Admin: 11/19/17 09:06 Dose: 100 mg Epoetin Tom (Procrit) 8,000 unit IV TTS [facility] Last Admin: 11/16/17 18:49 Dose: 8,000 unit Ergocalciferol (Drisdol 50,000 Intl Units Cap) 1 cap PO Q7D [facility] Last Admin: 11/14/17 21:59 Dose: Not Given Heparin Sodium (Porcine) (Heparin) 3,700 units IVP TTS [facility] Last Admin: 11/16/17 19:13 Dose: 3,700 units Hydromorphone HCl (Dilaudid) 1 mg IVP Q6H PRN PRN Reason: Pain, moderate (4-7) Last Admin: 11/19/17 09:04 Dose: 1 mg Insulin Glargine (Lantus) 8 unit SC [facility] Last Admin: 11/18/17 22:00 Dose: Not Given Insulin Human Regular (Novolin R) 0 unit SC [facility] PRN Reason: Protocol Last Admin: 11/19/17 11:55 Dose: 2 unit Isosorbide Mononitrate (Imdur) 60 mg PO DAILY [facility] Last Admin: 11/19/17 10:27 Dose: Not Given Levetiracetam (Keppra) 500 mg PO BID [facility] Last Admin: 11/19/17 09:06 Dose: 500 mg Lidocaine (Lidoderm) 1 ea TD DAILY [facility] Last Admin: 11/19/17 09:05 Dose: 1 ea Montelukast Sodium (Singulair) 10 mg PO HS [facility] Last Admin: 11/18/17 21:36 Dose: 10 mg Pantoprazole Sodium (Protonix Ec Tab) 20 mg PO DAILY [facility] Last Admin: 11/19/17 09:06 Dose: 20 mg Ranolazine (Ranexa) 500 mg PO BID [facility] Last Admin: 11/19/17 09:06 Dose: 500 mg Rosuvastatin Calcium (Crestor) 10 mg PO HS [facility] Last Admin: 11/18/17 21:35 Dose: 10 mg Sertraline HCl (Zoloft) 50 mg PO DAILY [facility] Last Admin: 11/19/17 09:06 Dose: 50 mg Vitamin B Complex/Vit C/Folic Acid (Nephro-Courtney) 1 tab PO 0800 [facility] Last Admin: 11/19/17 08:03 Dose: 1 tab Physical Exam - Constitutional Appears: No Acute Distress, Chronically Ill - Head Exam Head Exam: ATRAUMATIC, NORMAL INSPECTION, NORMOCEPHALIC - Eye Exam Eye Exam: absent: Normal appearance - ENT Exam ENT Exam: Mucous Membranes Moist, Normal Oropharynx - Neck Exam Neck exam: Positive for: Normal Inspection. Negative for: Tenderness, Thyromegaly - Respiratory Exam Respiratory Exam: Clear to Auscultation Bilateral, NORMAL BREATHING PATTERN. absent: Rhonchi, Wheezes - Cardiovascular Exam Cardiovascular Exam: REGULAR RHYTHM, RRR, +S1, +S2, Systolic Murmur. absent: Gallop, +S4 - GI/Abdominal Exam GI & Abdominal Exam: Normal Bowel Sounds, Soft. absent: Tenderness - Extremities Exam Extremities exam: Negative for: normal inspection (b/L BKA) - Neurological Exam Neurological exam: Alert, Oriented x3 Results - Vital Signs Recent Vital Signs: Last Vital Signs Temp 98 F 11/19/17 07:30 Pulse 63 11/19/17 07:30 Resp 20 11/19/17 07:30 BP 166/92 H 11/19/17 07:30 Pulse Ox 100 11/19/17 07:30 - Labs Result Diagrams: 11/14/17 19:26 11/16/17 16:50 Labs: Laboratory Results - last 24 hr 11/18/17 11/18/17 11/19/17 16:44 21:53 06:27 POC Glucose (mg/dL) 132 H 118 H 149 H 11/19/17 11:20 POC Glucose (mg/dL) 168 H Assessment & Plan - Assessment and Plan (Free Text) Assessment: 37 y/o with transgender phenotype Presented with syncope in the context of labile HTN and HD No arrythmia noted MRI head: No acute findings CArotid doppler: NO sig stenosis > DM brittle poorly controlled and hx of non-compliance > HTN is chronic and stable; with hx of non-compliance and sporadic lability > ESRD on HD with hx of non-compliance and missed sessions > Recurrent anemia and hx of GI bleed > Aflutter paroxysmal > chronic CAD hx of failed bypass, prior PCI and small diffuse secondary vessels > PVD s/p bilateral BKA due to recurrent infections and progressive gangrene and non-healing ulcers > Legally blind > chronic recurrent Chest wall pains/neuropathy Coronary artery disease s/p CABG and subsequent PCI all grafts are closed > He remains with preserved LV function and advanced diastolic dysfunction despite diffuse small vessel CAD (too small for PCI) > Recurrent anemia and GI bleed in past and present: deemed not a good candidate for DAPT > cont ASA if tolerated > EKG: hx of parox Aflutter, chronic LVH with strain ---> Now in NSR with chronic LVH strain pattern. > CXR: pleural effusion, mild congestion > Syncope is non-specific and doubt cardiac etiology > Medical therapy remains his most important and sole treatment option at this stage of chronic CAD. He unfortunately is not a candidate for any surgical or percutaneous therapy. He has had hx of atrial catheter related thrombus in past ---> he was challenged with AC on many occasions but due to GI bleed deemed unsafe.. He has known documented hx of parx AFLUTTER/AFIB > Continue Amiodarone HCl (Cordarone) 200 mg PO DAILY [facility] Amlodipine Besylate (Norvasc) 10 mg PO DAILY [facility] Last Admin: 10/24/17 10:20 Dose: 10 mg Aspirin (Aspirin Chewable) 81 mg PO DAILY [facility] Last Admin: 10/24/17 10:19 Dose: 81 mg Carvedilol (Coreg) 25 mg PO BID [facility] Last Admin: 10/24/17 10:19 Dose: 25 mg Clonidine HCl (Catapres-Tts3 0.3 Mg/24 Hr) 1 patch TD Q7D@1000 [facility] Isosorbide Mononitrate (Imdur) 60 mg PO DAILY [facility] Rosuvastatin Calcium (Crestor) 10 mg PO HS [facility] Ranexa 500 BID Hydralazine 50-100 BID/TID -----------> Titrate these meds as tolerated to achieve optimal BP and HR control. (<120/80 and HR <65). * He has had hx of atrial catheter related thrombus in past ---> he was challenged with AC on many occasions but due to GI bleed deemed unsafe * he has known documented hx of parx AFLUTTER/AFIB Cont HD to maintain volume status d/c plannning after HD
--- NOTE | 2017-11-19 13:05 | CP.PCM.PN ---
Subjective - Date & Time of Evaluation Date of Evaluation: 11/19/17 Time of Evaluation: 13:03 - Subjective Subjective: PT SEEN BY DR. DONALDSON AND CLEARED. ALSO SEEN BY DR. BELL AND CLEARED FOR D/ C TODAY AFTER HD. PT TO F/U WITH HER IN THE OFFICE WITHIN 5-7 DAYS. RX GIVEN FOR LIDOCAINE PATCH TO BE USED PRN (DISP #5). PT ENCOURAGED NOT TO MISS ANY HD SESSIONS, WHICH HE DOES OFTEN. SW WILL ARRANGE TRANSPORTATION FOR THIS EVENING. NO FURTHER ORDERS. SEE BELOW FOR D/C PLAN: -FOLLOW UP WITH DR. BELL IN THE OFFICE IN 5-7 DAYS OF DISCHARGE---CALL THE OFFICE FOR APPT TIME. -FOLLOW UP WITH YOUR CITY MAINTENANCE MANAGER AND KIDNEY DOCTORS IN THEIR OFFICES WITHIN 1- 2 WEEKS---CALL THE OFFICE FOR APPT TIME. -CONTINUE YOUR HOME MEDICATIONS USUAL. -CONTACT YOUR DOCTOR FOR REFILLS ON PAIN MEDICINE. -YOU HAVE BEEN PRESCRIBED LIDOCAINE PATCHES FOR PAIN; USE EXACTLY PRESCRIBED. -DISCUSS WITH YOUR DOCTOR AN OUTPATIENT PAIN MANAGEMENT REFERRAL FOR YOUR CHRONIC PAIN. -CONTINUE YOUR USUAL DIALYSIS DAYS. PLEASE, DO NOT MISS ANY SESSIONS!!!!!!!! -FOR ANY FURTHER ORDERS OR CONCERNS, CONTACT DR. BELL'S OFFICE. Objective - Vital Signs/Intake and Output Vital Signs (last 24 hours): Temp Pulse Resp BP Pulse Ox 98 F 63 20 166/92 H 100 11/19/17 07:30 11/19/17 07:30 11/19/17 07:30 11/19/17 07:30 11/19/17 07:30 Intake and Output: 11/19/17 11/19/17 06:59 18:59 Intake Total 240 Balance 240 - Medications Medications: Current Medications Albuterol/Ipratropium (Duoneb 3 Mg/0.5 Mg (3 Ml) Ud) 3 ml IH RQ4 [facility] Last Admin: 11/19/17 11:14 Dose: Not Given Amiodarone HCl (Cordarone) 200 mg PO DAILY [facility] Last Admin: 11/19/17 09:06 Dose: 200 mg Amlodipine Besylate (Norvasc) 10 mg PO DAILY [facility] Last Admin: 11/19/17 10:28 Dose: Not Given Aspirin (Aspirin Chewable) 81 mg PO DAILY [facility] Last Admin: 11/19/17 09:06 Dose: 81 mg Calcium Carbonate (Oscal) 500 mg PO BID [facility] Last Admin: 11/19/17 09:06 Dose: 500 mg Carvedilol (Coreg) 25 mg PO BID [facility] Last Admin: 11/19/17 10:26 Dose: Not Given Clonidine HCl (Catapres-Tts3 0.3 Mg/24 Hr) 1 patch TD Q7D@1000 [facility] Docusate Sodium (Colace) 100 mg PO DAILY [facility] Last Admin: 11/19/17 09:06 Dose: 100 mg Epoetin Tom (Procrit) 8,000 unit IV TTS [facility] Last Admin: 11/16/17 18:49 Dose: 8,000 unit Ergocalciferol (Drisdol 50,000 Intl Units Cap) 1 cap PO Q7D [facility] Last Admin: 11/14/17 21:59 Dose: Not Given Heparin Sodium (Porcine) (Heparin) 3,700 units IVP TTS [facility] Last Admin: 11/16/17 19:13 Dose: 3,700 units Hydromorphone HCl (Dilaudid) 1 mg IVP Q6H PRN PRN Reason: Pain, moderate (4-7) Last Admin: 11/19/17 09:04 Dose: 1 mg Insulin Glargine (Lantus) 8 unit SC HS [facility] Last Admin: 11/18/17 22:00 Dose: Not Given Insulin Human Regular (Novolin R) 0 unit SC [facility] PRN Reason: Protocol Last Admin: 11/19/17 11:55 Dose: 2 unit Isosorbide Mononitrate (Imdur) 60 mg PO DAILY [facility] Last Admin: 11/19/17 10:27 Dose: Not Given Levetiracetam (Keppra) 500 mg PO BID [facility] Last Admin: 11/19/17 09:06 Dose: 500 mg Lidocaine (Lidoderm) 1 ea TD DAILY [facility] Last Admin: 11/19/17 09:05 Dose: 1 ea Montelukast Sodium (Singulair) 10 mg PO HS [facility] Last Admin: 11/18/17 21:36 Dose: 10 mg Pantoprazole Sodium (Protonix Ec Tab) 20 mg PO DAILY [facility] Last Admin: 11/19/17 09:06 Dose: 20 mg Ranolazine (Ranexa) 500 mg PO BID [facility] Last Admin: 11/19/17 09:06 Dose: 500 mg Rosuvastatin Calcium (Crestor) 10 mg PO HS [facility] Last Admin: 11/18/17 21:35 Dose: 10 mg Sertraline HCl (Zoloft) 50 mg PO DAILY [facility] Last Admin: 11/19/17 09:06 Dose: 50 mg Vitamin B Complex/Vit C/Folic Acid (Nephro-Courtney) 1 tab PO 0800 [facility] Last Admin: 11/19/17 08:03 Dose: 1 tab - Labs Labs: 11/14/17 19:26 11/16/17 16:50
[2017-11-19] MEDS: EPOETIN ALFA 4,000 UNIT/ML ML Dialysis IV SCH (14:53)
[2017-11-19 18:18] VITALS: BP 149/76; PULSE 68; RESP 20; TEMP 97.8
--- NOTE | 2017-11-19 23:46 | CP.PCM.PN ---
Subjective - Date & Time of Evaluation Date of Evaluation: 11/19/17 Time of Evaluation: 19:00 - Subjective Subjective: Patient was seen by [facility] Mechanic Dr Escobar and is cleared for discharge. He is not a candidate for any invasive cardiology procedure due to his fragile health and his cardiac past history. His EEG is negative and his syncopal spell is still to be worked up to R/O Seizures, or Cardiac causes or miscellaneous causes. His MRI Brain and carotid Doppler are negative. He is suffering from Back Pain. Keppra 500 mg was started by Dr Sybil Li as a precaution for possible seizure due to the clinical Picture of the spell of Syncope. Objective - Vital Signs/Intake and Output Vital Signs (last 24 hours): Temp Pulse Resp BP Pulse Ox 97.8 F 68 20 149/76 100 11/19/17 18:17 11/19/17 18:17 11/19/17 18:17 11/19/17 18:29 11/19/17 18:17 - Labs Labs: 11/14/17 19:26 11/16/17 16:50 Assessment and Plan (1) Seizures Status: Acute (2) Acute non-ST segment elevation myocardial infarction Status: Chronic (3) CVA (cerebral vascular accident) Status: Chronic (4) Migraine Status: Chronic
--- NOTE | 2017-11-20 19:02 | CARD ---
APPROVED REPORT EKG Measurement Heart [id number] <Conclusion> Normal sinus rhythm Incomplete left bundle branch block Left ventricular hypertrophy with repolarization abnormality Prolonged QT Abnormal ECG
--- NOTE | 2017-11-22 09:52 | EEG ---
DATE: 11/18/2017 The record is obtained for history of syncopal spell, rule out seizures, and the record was symmetrically equal on both sides with velocity of 8 to 9 cycles per second. The waves were fairly formed, fairly organized with a posterior distribution, moderate in amplitude, reactive to eye opening by attenuation. There were no abnormal discharges. No spike or polyspike. No sharp wave, no focal slowing, no paroxysmal discharges. The record did not show any changes with photic stimulation. The hyperventilation was omitted. There were periods of drowsiness during which attenuation and slowing of the record were seen and theta waves were seen and theta waves were seen. There were no periods of sleep. There were eye movement artifacts, electrode artifacts, and muscle movement artifacts. There were beta waves that were seen most likely due to his sedation or due to the pain medicine that he gets. In summary, this is a normal awake and drowsy EEG. Clinical correlation is recommended. Nikhil Wu MD MARIANN
--- NOTE | 2017-11-23 08:41 | PCM.HF ---
Heart Failure Core Measure - Heart Failure Ejection Fraction: 40 % or Greater RAÚL Inhibitor Prescribed: No Contraindication/Reason for not providing: esrd; ef > 40 Beta-Andrew Prescribed: Carvedilol Angiotensin II Receptor Andrew Prescribed: No Contraindication/Reason for not providing: esrd; ef > 40 AnticoagulationTherapy for Atrial Fibrillation/Atrialflutter: No Contraindication/Reason for not providing: h/o bleed Aldosterone Antagonist Prescribed: No Contraindication/Reason for not providing: esrd; ef > 40 Hydralazine Nitrate Prescribed: No Contraindication/Reason for not providing: esrd; ef > 40 Implantable Cardioverter Defibrillator Therapy: No Contraindication/Reason for not providing: ef > 40 Cardiac Resynchronization Therapy Prescribed: No Contraindication/Reason for not providing: ef > 40 - Follow up Will be discharged to: Home Follow Up Date (must be within 7 days from discharge): 11/22/17 Follow Up Time: 09:00
--- NOTE | 2017-11-30 10:20 | DS ---
HISTORY OF PRESENT ILLNESS: He presented to the emergency room after he had dialysis, he felt he passed out, he has headache and dizziness. This patient has a lot of issues for chronic hypertension which has been high for recently 240 as per the patient, and also he has diabetes which is insulin dependent and his anemia. He has end-stage renal failure on dialysis. HOSPITAL COURSE: When he came in, his hemoglobin was 9.6 and his hematocrit 29. His BUN is 31, his creatinine 3.6, his sugar was 198 at this time of admission, and he was getting into the hospital because he missed his dialysis as well. He was seen by Dr. Nikhil Wu, consultation of Neurology, and his blood pressure improved, it was 105/59 in the hospital, and he was receiving the dialysis. He was gradually feeling better. Rule out cardiac embolic lesion or CVA or arrhythmia. He was monitored. There was no new changes in his EKG. The MRI showed some atrophy and ischemia. He has also a lumbar spine which showed degenerative disk disease because he is always having the back pain. He gradually improved, and he was also seen by Dr. Escobar, Cardiology. He was last seen by me on , and he was feeling better and there was no pain or dizziness. His ejection fraction was 40%, and he was to continue on all his medications. He is to continue on all his medications. FINAL DIAGNOSES: Dizziness, syncope, end stage renal failure, uncontrolled hypertension, diabetes mellitus, and anemia. To follow up in my office. Sybil Li MD
== END 2017-11-19 20:44 | disposition home or self-care (01) | DRG 544 ==
LOC: C.ER 16:07 → C.9E 21:00 → C.6T 21:45 → OBSVTOIN 11-15 11:01
PROVIDERS: ADMIT Internal Medicine; ATTEND Internal Medicine
PROC: 5A1D70Z Performance of Urinary Filtration, Intermittent, Less than 6 Hours Per Day (ICD-10-PCS; principal; 2017-11-15)
DX: I13.2 Hypertensive heart and chronic kidney disease with heart failure and with stage 5 chronic kidney disease, or end stage renal disease (principal); I50.32 Chronic diastolic (congestive) heart failure; E11.22 Type 2 diabetes mellitus with diabetic chronic kidney disease; E11.319 Type 2 diabetes mellitus with unspecified diabetic retinopathy without macular edema; E11.51 Type 2 diabetes mellitus with diabetic peripheral angiopathy without gangrene; N18.6 End stage renal disease; J44.9 Chronic obstructive pulmonary disease, unspecified; G62.9 Polyneuropathy, unspecified; M48.04 Spinal stenosis, thoracic region; I48.0 Paroxysmal atrial fibrillation; I69.354 Hemiplegia and hemiparesis following cerebral infarction affecting left non-dominant side; G43.909 Migraine, unspecified, not intractable, without status migrainosus; I25.10 Atherosclerotic heart disease of native coronary artery without angina pectoris; M48.00 Spinal stenosis, site unspecified; E78.00 Pure hypercholesterolemia, unspecified; G30.9 Alzheimer's disease, unspecified; F02.80 Dementia in other diseases classified elsewhere, unspecified severity, without behavioral disturbance, psychotic disturbance, mood disturbance, and anxiety; F32.9 Major depressive disorder, single episode, unspecified; H54.8 Legal blindness, as defined in USA; G89.29 Other chronic pain; M54.9 Dorsalgia, unspecified; F41.9 Anxiety disorder, unspecified; F64.9 Gender identity disorder, unspecified; Z83.3 Family history of diabetes mellitus; Z79.899 Other long term (current) drug therapy; Z82.49 Family history of ischemic heart disease and other diseases of the circulatory system; Z87.01 Personal history of pneumonia (recurrent); Z87.891 Personal history of nicotine dependence; Z95.1 Presence of aortocoronary bypass graft; Z95.5 Presence of coronary angioplasty implant and graft; Z99.2 Dependence on renal dialysis; Z79.4 Long term (current) use of insulin

== ENCOUNTER 2017-11-30 16:51 | Observation (INO) | payer OTHER ==
[2017-11-30 16:51] VITALS: PULSE 66; BMI 18.8
--- NOTE | 2017-11-30 18:17 | C.PDOC ---
History Of Present Illness Patient is a 37 y/o male who presents to the ED with complaints of chest pain and SOB for the last 1 day. Patient is on dialysis, admitting last dialysis was 2 days ago; patient did not receive dialysis today. Patient has an extensive history for similar ED presentations. No other physical complaints at this time. Time Seen by Provider: 11/30/17 17:58 Chief Complaint (Nursing): Chest Pain History Per: Patient History/Exam Limitations: no limitations Onset/Duration Of Symptoms: Days (1 day) Current Symptoms Are (Timing): Still Present Associated Symptoms: Other (SOB) Past Medical History Reviewed: Historical Data, Nursing Documentation, Vital Signs Vital Signs: Last Vital Signs Temp 98.4 F 11/30/17 16:51 Pulse 90 11/30/17 21:00 Resp 16 11/30/17 21:00 BP 148/80 11/30/17 21:00 Pulse Ox 100 11/30/17 21:25 - Medical History PMH: Alzheimer's Disease, Anemia, Anxiety, Arthritis, Asthma, Atrial Fibrillation, Bronchitis, CAD, Cardia Arrhythmia, CHF, COPD, CVA, Depression, Diabetes, Deep Vein Thrombosis, Gastritis, Gastrointestinal Ulcer, Gall Bladder Disease, HTN, Hypercholesterolemia, Hypothyroidism, Pneumonia, End Stage Renal Disease, Chronic Kidney Disease, Seizures Denies: Hyperthyroidism, Kidney Stones, Sexually Transmitted Disease Surgical History: CABG (12/2009), Cholecystectomy (2011), Coronary Stent - [facility] (11/15/17) ABDOMINAL WALL SINOGRAM (12/31/13) C.A.T. SCAN OF ABDOMEN (10/31/13) CENTRAL VENOUS CATHETER PLACEMENT WITH GUIDANCE (02/10/15) CHANGE OTHER DEVICE IN TRUNK SUBCU/FASCIA, DRAWER UPFITTER APPROACH (06/01/17) DILATE R ANT TIB ART W DRUG-ELUT INTRALUM, PERC (08/12/15) DILATION OF LEFT FEMORAL ARTERY, PERCUTANEOUS APPROACH (07/04/16) DILATION OF RIGHT FEMORAL ARTERY, PERCUTANEOUS APPROACH (08/12/15) DILATION OF RIGHT POPLITEAL ARTERY, PERCUTANEOUS APPROACH (08/12/15) DX ULTRASOUND-HEART (01/05/13) ENTERAL INFUSION OF CONCENTRATED NUT. SUBSTANCES (06/28/13) EXCIS DEBRIDE OF WOUND, INFECT, OR BURN (08/03/14) EXCISION OF STOMACH, ENDO, DIAGN (03/03/17) EXTIRPATION OF MATTER FROM L FEM ART, PERC APPROACH (07/04/16) EXTIRPATION OF MATTER FROM R FEM ART, PERC APPROACH (08/12/15) EXTIRPATION OF MATTER FROM R POPL ART, PERC APPROACH (08/12/15) FLUOROSCOPY OF L LOW EXTREM ART USING L OSM CONTRAST (08/12/15) FLUOROSCOPY OF R LOW EXTREM ART USING L OSM CONTRAST (08/12/15) FLUOROSCOPY OF RIGHT JUGULAR VEINS, GUIDANCE (06/01/17) FREE SKIN GRAFT NEC (08/03/14) HEAD SOFT TISS X-RAY NEC (04/15/13) HEMODIALYSIS (04/28/15) INCIS W REM OF FORIEGN BODY OR DEV FROM SKIN & SUBCUT TISSUE (08/08/13) INSERT INFUSION DEV IN R INT JUGULAR VEIN, PERC (06/01/17) INSERTION OF INFUSION DEV INTO R SUBCLAV VEIN, PERC APPROACH (01/19/16) INSERTION OF INFUSION DEV INTO SUP VENA CAVA, PERC APPROACH (05/17/17) INSPECTION OF UPPER INTESTINAL TRACT, ENDO (03/03/17) INTRODUCE OF OTH THROMBOLYTIC INTO PERIPH ART, PERC APPROACH (08/12/15) LAPAROSCOPIC CHOLECYSTECTOMY (09/21/13) LOC EXC LES METATAR/TAR (06/01/14) PACKED CELL TRANSFUSION (06/01/14) PERCUTAN LIVER ASPIRAT (12/31/13) PERFORMANCE OF URINARY FILTRATION, MULTIPLE (05/17/17) PERFORMANCE OF URINARY FILTRATION, SINGLE (12/18/16) SKIN & SUBQ INCISION NEC (10/24/14) TETANUS TOXOID ADMINIST (06/13/14) TRANSFUSE NONAUT RED BLOOD CELLS IN PERIPH VEIN, PERC (04/09/17) ULTRASONOGRAPHY OF RIGHT AND LEFT HEART (04/09/17) ULTRASONOGRAPHY OF SUPERIOR VENA CAVA, GUIDANCE (02/20/17) VENOUS CATHETERIZATION FOR RENAL DIALYSIS (08/08/13) VENOUS CATHETERIZATION NEC (04/30/13) Family History: States: No Known Family Hx - Social History Hx Tobacco Use: No Hx Alcohol Use: No Hx Substance Use: No - Immunization History Hx Tetanus Toxoid Vaccination: Yes Hx Influenza Vaccination: Yes Hx Pneumococcal Vaccination: Yes Review Of Systems Cardiovascular: Positive for: Chest Pain Respiratory: Positive for: Shortness of Breath Physical Exam - Physical Exam Appears: Well, Non-toxic, No Acute Distress Skin: Normal Color, Warm, Dry Head: Atraumatic, No Normacephalic Oral Mucosa: Moist Neck: Normal, Normal ROM Chest: Symmetrical, Other (dialysis catheter to right anterior chest wall ) Cardiovascular: Rhythm Regular (tachycardic rate), No Murmur Respiratory: Normal Breath Sounds, No Rales, No Rhonchi, No Wheezing Gastrointestinal/Abdominal: Normal Exam, Bowel Sounds, Soft Back: Normal Inspection Extremity: Other (bilateral BKAs) Neurological/Psych: Oriented x3, Normal Speech, Normal Cognition ED Course And Treatment - Laboratory Results Result Diagrams: 11/30/17 18:25 11/30/17 19:04 ECG: Interpreted By Me, Viewed By Me ECG Rhythm: Sinus Rhythm, ST/T Changes (t wave inversion) Interpretation Of ECG: LAD, left ventricular hypertrophy, AVL Rate From EC (bpm) O2 Sat by Pulse Oximetry: 100 Progress Note: EKG and blood work ordered. Aspirin and catapres administered. Medical Decision Making Medical Decision Making: Case discussed with Dr. Li who agrees to admit patient to telemetry observation for CP, ESRD, and hyperkalemia. Disposition Discussed With : Sybil Li Doctor Will See Patient In The: Hospital Counseled Patient/Family Regarding: Studies Performed, Diagnosis - Disposition Disposition: HOSPITALIZED Disposition Time: 21:21 Condition: FAIR - Clinical Impression Clinical Impression: Chest pain, rule out acute myocardial infarction, ESRD on hemodialysis, Hyperkalemia - Scribe Statement The provider has reviewed the documentation as recorded by the Scribe Flori Celeste All medical record entries made by the Scribe were at my direction and personally dictated by me. I have reviewed the chart and agree that the record accurately reflects my personal performance of the history, physical exam, medical decision making, and the department course for this patient. I have also personally directed, reviewed, and agree with the discharge instructions and disposition.
[2017-11-30 18:32] LABS: BASO # 0.1 K/uL (0.0-0.2); BASO % 1.2 % (0.0-2.0); EOS # 0.6 K/uL (0.0-0.7); HEMOGLOBIN 10.6 g/dL (12.0-18.0); LYMPH # 2.9 K/uL (1.0-4.3); LYMPH % 30.9 % (20.0-40.0); MEAN CELL VOLUME 94.8 fL (80.0-94.0); MEAN CORPUSCULAR HGB CONC 31.6 g/dL (33.0-37.0); MEAN PLATELET VOLUME 10.3 fL (7.2-11.7); MONO # 0.5 K/uL (0.0-0.8); MONO % 5.2 % (0.0-10.0); NEUT # 5.3 K/uL (1.8-7.0); NEUT % 56.7 % (50.0-75.0); NRBC % 0.1 % (0.0-2.0); RBC 3.54 Mil/uL (4.40-5.90); RED CELL DISTRIBUTION WIDTH 17.2 % (11.5-14.5); WHITE BLOOD COUNT 9.3 K/uL (4.8-10.8)
[2017-11-30 18:42] LABS: INR 1.2; PROTHROMBIN TIME 13.5 SECONDS (9.7-12.2)
[2017-11-30 19:06] LABS: TROPONIN I 0.364 ng/mL (0.00-0.120)
[2017-11-30 20:59] LABS: ALBUMIN 3.9 g/dL (3.5-5.0); CALCIUM 7.9 mg/dl (8.6-10.4)
[2017-11-30] MEDS ORDERED: Sod Polystyrene Sulf 15 gm/60 ml Susp PO ONE (21:15)
[2017-11-30] MEDS ORDERED: HYDROmorphone 1 mg/ml ISec IVP PRN (21:24)
[2017-11-30] MEDS ORDERED: Lidocaine 5% Patch TD PRN (21:32)
[2017-11-30] MEDS ORDERED: Ergocalciferol 50,000 Intl Units Cap PO SCH (21:45)
[2017-11-30] MEDS: HYDROmorphone 1 mg/ml ISec IVP PRN (22:02)
[2017-12-01] MEDS: HYDROmorphone 1 mg/ml ISec IVP PRN (04:32)
[2017-12-01] MEDS: Multivitamin Vitamin B Complex (Nephro-Vite) Tab PO SCH (08:03)
[2017-12-01] MEDS: (Novolin R) Insulin Human Regular 100 units/ml vial SC SCH ×4 (08:03→21:07)
[2017-12-01 08:52] LABS: CALCIUM 8.2 mg/dl (8.6-10.4)
--- NOTE | 2017-12-01 10:02 | CP.PCM.HP ---
History of Present Illness - History of Present Illness History of Present Illness: pt came in toed missed his dialysis k high c/o chest pain abd pain diarehea Present on Admission - Present on Admission Any Indicators Present on Admission: No Review of Systems - Review of Systems Systems not reviewed;Unavailable: Acuity of Condition - Constitutional Constitutional: Fatigue - EENT Eyes: Decreased Night Vision, Loss of Peripheral Vision, Other Visual Disturbances Ears: As Per HPI Nose/Mouth/Throat: As Per HPI - Cardiovascular Cardiovascular: Chest Pain at Rest - Respiratory Respiratory: Dyspnea - Gastrointestinal Gastrointestinal: Abdominal Pain, Diarrhea - Genitourinary Genitourinary: As Per HPI - Reproductive: Male Reproductive:Male: As Per HPI - Musculoskeletal Musculoskeletal: As Per HPI, Back Pain, Radiating Pain into Limb Additional comments: bilateral amputation - Integumentary Integumentary: As Per HPI - Neurological Neurological: Numbness - Psychiatric Psychiatric: Depression - Endocrine Endocrine: Polydipsia - Hematologic/Lymphatic Hematologic: As Per HPI Past Patient History - Infectious Disease Hx of Infectious Diseases: None - Tetanus Immunizations Tetanus Immunization: >10 years Ago - Past Medical History & Family History Past Medical History?: Yes - Past Social History Smoking Status: Never Smoked - CARDIAC Hx Atrial Fibrillation: Yes Hx Cardia Arrhythmia: Yes Hx Congestive Heart Failure: Yes Hx Hypercholesterolemia: Yes Hx Hypertension: Yes - PULMONARY Hx Asthma: Yes Hx Bronchitis: Yes Hx Chronic Obstructive Pulmonary Disease (COPD): Yes Hx Pneumonia: Yes - NEUROLOGICAL Hx Alzheimer's Disease: Yes Hx Seizures: Yes - HEENT Hx HEENT Problems: Yes Hx Blind: Yes (legally blind) Hx Cataracts: Yes - RENAL Hx Chronic Kidney Disease: Yes Hx Kidney Stones: No - ENDOCRINE/METABOLIC Hx Hyperthyroidism: No Hx Hypothyroidism: Yes - HEMATOLOGICAL/ONCOLOGICAL Hx Anemia: Yes - INTEGUMENTARY Hx Dermatological Problems: No - MUSCULOSKELETAL/RHEUMATOLOGICAL Hx Arthritis: Yes - GASTROINTESTINAL Hx Gall Bladder Disease: Yes Hx Gastritis: Yes - GENITOURINARY/GYNECOLOGICAL Hx Sexually Transmitted Disorders: No - PSYCHIATRIC Hx Anxiety: Yes Hx Depression: Yes Hx Substance Use: No - SURGICAL HISTORY Hx Cholecystectomy: Yes (2011) 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/2009) Hx Coronary Stent: Yes - ANESTHESIA Hx Anesthesia: Yes Hx Anesthesia Reactions: No Hx Malignant Hyperthermia: No Meds Allergies/Adverse Reactions: Allergies Allergy/AdvReac Type Severity Reaction Status Date / Time acetaminophen [From Percocet] Allergy RASH Verified 11/14/17 16:28 atenolol Allergy RASH Verified 11/14/17 16:28 digoxin Allergy RASH Verified 11/14/17 16:28 milk Allergy ITCHING Verified 11/14/17 16:28 morphine Allergy RASH Verified 11/14/17 16:28 oxycodone HCl [From Percocet] Allergy RASH Verified 11/14/17 16:28 Physical Exam - Constitutional Appears: Non-toxic - Head Exam Head Exam: ATRAUMATIC - Eye Exam Eye Exam: Conjunctival injection - ENT Exam ENT Exam: Mucous Membranes Dry - Neck Exam Neck exam: Positive for: Full Rom - Respiratory Exam Respiratory Exam: Decreased Breath Sounds - Cardiovascular Exam Cardiovascular Exam: +S1, +S2, +S4 - GI/Abdominal Exam GI & Abdominal Exam: Tenderness - Rectal Exam Rectal Exam: Deferred - Back Exam Back exam: CVA tenderness (L) - Skin Skin Exam: Pallor Results - Vital Signs Recent Vital Signs: Last Vital Signs Temp 98.1 F 12/01/17 07:50 Pulse 66 12/01/17 07:50 Resp 18 12/01/17 07:50 BP 160/78 H 12/01/17 07:50 Pulse Ox 100 12/01/17 07:50 - Labs Result Diagrams: 11/30/17 18:25 12/01/17 08:29 Labs: Laboratory Results - last 24 hr 11/30/17 11/30/17 11/30/17 17:10 18:25 18:25 WBC 9.3 RBC 3.54 L Hgb 10.6 L Hct 33.5 L MCV 94.8 H MCH 30.0 MCHC 31.6 L RDW 17.2 H Plt Count 226 MPV 10.3 Neut % (Auto) 56.7 Lymph % (Auto) 30.9 Bonner % (Auto) 5.2 Eos % (Auto) 6.0 H Baso % (Auto) 1.2 Neut # (Auto) 5.3 Lymph # (Auto) 2.9 Bonner # (Auto) 0.5 Eos # (Auto) 0.6 Baso # (Auto) 0.1 PT INR APTT Sodium Potassium Chloride Carbon Dioxide Anion Gap BUN Creatinine Est GFR ( Amer) Est GFR (Non-Af Amer) POC Glucose (mg/dL) 234 H Random Glucose Calcium Total Bilirubin AST ALT Alkaline Phosphatase Troponin I 0.3640 H* NT-Pro-B Natriuret Pep 28727 H Total Protein Albumin Globulin Albumin/Globulin Ratio 11/30/17 11/30/17 12/01/17 18:25 19:04 06:17 WBC RBC Hgb Hct MCV MCH MCHC RDW Plt Count MPV Neut % (Auto) Lymph % (Auto) Bonner % (Auto) Eos % (Auto) Baso % (Auto) Neut # (Auto) Lymph # (Auto) Bonner # (Auto) Eos # (Auto) Baso # (Auto) PT 13.5 H INR 1.2 APTT 32 Sodium 139 Potassium 6.1 H Chloride 95 L Carbon Dioxide 22 Anion Gap 28 H BUN 73 H Creatinine 6.5 H Est GFR ( Amer) 12 Est GFR (Non-Af Amer) 10 POC Glucose (mg/dL) 364 H Random Glucose 206 H Calcium 7.9 L Total Bilirubin 0.6 AST 19 ALT 7 L D Alkaline Phosphatase 196 H D Troponin I NT-Pro-B Natriuret Pep Total Protein 7.7 Albumin 3.9 Globulin 3.8 Albumin/Globulin Ratio 1.0 12/01/17 08:29 WBC RBC Hgb Hct MCV MCH MCHC RDW Plt Count MPV Neut % (Auto) Lymph % (Auto) Bonner % (Auto) Eos % (Auto) Baso % (Auto) Neut # (Auto) Lymph # (Auto) Bonner # (Auto) Eos # (Auto) Baso # (Auto) PT INR APTT Sodium 140 Potassium 4.5 Chloride 94 L Carbon Dioxide 28 Anion Gap 22 H BUN 29 H Creatinine 3.5 H Est GFR ( Amer) 24 Est GFR (Non-Af Amer) 20 POC Glucose (mg/dL) Random Glucose 326 H Calcium 8.2 L Total Bilirubin AST ALT Alkaline Phosphatase Troponin I NT-Pro-B Natriuret Pep Total Protein Albumin Globulin Albumin/Globulin Ratio Assessment & Plan - Assessment and Plan (Free Text) Assessment: hyper [place] chest pain cad chf dm htn esrf ac recurent abd kelly n and diarehea Plan: as per orders - Date & Time Date: 12/01/17 Time: 10:05
[2017-12-01] MEDS: Pantoprazole 40 mg EC Tab PO SCH (10:28)
[2017-12-01] MEDS: Ranolazine 500 mg Extended Release Tablets PO SCH ×2 (10:28→18:10)
[2017-12-01] MEDS: Valproic Acid 250 mg/5 ml UD Cup PO SCH ×4 (10:29→22:41)
[2017-12-01] MEDS: Albuterol-Ipratrop 3 mg / 0.5 (3 ml) UD IH SCH ×2 (10:29→13:15)
[2017-12-01] MEDS: Enoxaparin 30 mg Syringe SC SCH (10:30)
[2017-12-01] MEDS: Lactulose 10 gm/15 ml (Rectal Use) PR SCH (10:53)
--- NOTE | 2017-12-01 11:24 | RAD ---
PROCEDURE: CHEST RADIOGRAPH, 1 VIEW HISTORY: chest pain COMPARISON: Comparison made with prior chest radiograph 11/14/2017 FINDINGS: Re- demonstrated is in situ dialysis catheter with tips in the SVC/RA junction. LUNGS: Pulmonary vascular congestion with bilateral lower lobe alveolar-type infiltrates and bilateral effusions left larger than right. PLEURA: No pneumothorax or pleural fluid seen. CARDIOVASCULAR: Sternotomy wires again noted. Heart is enlarged OSSEOUS STRUCTURES: No significant abnormalities. VISUALIZED UPPER ABDOMEN: Normal. OTHER FINDINGS: None. IMPRESSION: Pulmonary vascular congestion with bilateral lower lobe alveolar-type infiltrates and bilateral effusions left larger than right.
[2017-12-01 13:22] LABS: CK-MB 1.11 ng/mL (0.0-3.38); TROPONIN I 0.217 ng/mL (0.00-0.120)
--- NOTE | 2017-12-01 20:46 | CP.PCM.CON ---
History of Present Illness - History of Present Illness History of Present Illness: Nephrology Consultation: Assessment: Stable Chest pain atrial flutter Diabetic chronic Kidney Disease (E11.22) Hypertensive Chronic Kidney Disease (I12.0) End stage renal disease (N18.6) dependence on hemodialysis (Z99.2) (TTS) via AVF Anemia (D64.9), Hyperphosphatemia (E83.39), Secondary Hyperparathyroidism (E21.1 ), HTN (I12.0) CAD s/p CABG, diastolic CHF, parox A flutter/fib, intra-cardiac thrombus, hx of Heparin induced thrombocytopenia, hx of seizure, blindness Plan: s/p hd yesterday, continue TTS Continue with Nephrovite 1 tab/day. hgb ok aaron on hold for now Continue with phos binders home dose BP control with meds as ordered. Glycemic control, Dialysis consistent diet Further work up/management as per primary team Dose meds/antibiotics (if needed) for ESRD status. Avoid fleets enema/magnesium based laxatives. Chief Complaint; I fainted HPI: Pt is a 37 y/o transgender with hx of ESRD on hemodialysis (TTS) via permacath, chronic anemia, hyperphosphatemia, secondary hyperparathyroidism, Diabetes Mellitus, hypertension, CAD s/p CABG, diastolic CHF, pA flutter/fib, intra-cardiac thrombus, Heparin induced thrombocytopenia in past presented with complaints of chest pain and diarrhea. Jovani states currently chest pain free stilll w/ some loose stools. He has been followed closely w/ cardiology. Denies current sob. Denies fever/chills. Eating dinner ROS: All other negative except as in HPI. Physical Examination: General Appearance: Comfortable, in no acute respiratory distress, co-operative . Vitals reviewed and noted as below Head; Atraumatic, normocephalic ENT: no ulcers no thrush. Tongue is midline. Oropharynx: no rash or ulcers. EYES: Pt is blind both eyes Neck; supple no lymphadenopathy, no thyromegaly or bruit Lungs: Normal respiratory rate/effort. Breath sounds bilateral equal clear with few basal crackles Heart: Normal rate. s1s2 normal. No rub or gallop. Extremities: no edema. No varicose veins. has b/l BKA Neurological: Patient is alert, awake and oriented to person, place and time. No focal deficit. Strength bilateral appropriate and equal Skin: Warm and dry. Normal turgor. No rash. Palpitation: Normal elasticity for age Abdomen: Abdomen is soft. Bowel sounds +. There is no abdominal tenderness, no guarding/rigidity or organomegaly Psych: limited insight and has normal affect/mood MSK: no joint tenderness or swelling. Digits and nails normal, no deformity : kidney or bladder not palpable Access: permacath Labs/imaging reviewed. Past medical history, past surgical history, family history, social history, allergy reviewed and noted as below Family Hx: no hx of CKD. Non contributory Past Patient History - Infectious Disease Hx of Infectious Diseases: None - Tetanus Immunizations Tetanus Immunization: >10 years Ago - Past Medical History & Family History Past Medical History?: Yes - Past Social History Smoking Status: Never Smoked - CARDIAC Hx Atrial Fibrillation: Yes Hx Cardia Arrhythmia: Yes Hx Congestive Heart Failure: Yes Hx Hypercholesterolemia: Yes Hx Hypertension: Yes - PULMONARY Hx Asthma: Yes Hx Bronchitis: Yes Hx Chronic Obstructive Pulmonary Disease (COPD): Yes Hx Pneumonia: Yes - NEUROLOGICAL Hx Alzheimer's Disease: Yes Hx Seizures: Yes - HEENT Hx HEENT Problems: Yes Hx Blind: Yes (legally blind) Hx Cataracts: Yes - RENAL Hx Chronic Kidney Disease: Yes Hx Kidney Stones: No - ENDOCRINE/METABOLIC Hx Hyperthyroidism: No Hx Hypothyroidism: Yes - HEMATOLOGICAL/ONCOLOGICAL Hx Anemia: Yes - INTEGUMENTARY Hx Dermatological Problems: No - MUSCULOSKELETAL/RHEUMATOLOGICAL Hx Arthritis: Yes - GASTROINTESTINAL Hx Gall Bladder Disease: Yes Hx Gastritis: Yes - GENITOURINARY/GYNECOLOGICAL Hx Sexually Transmitted Disorders: No - PSYCHIATRIC Hx Anxiety: Yes Hx Depression: Yes Hx Substance Use: No - SURGICAL HISTORY Hx Cholecystectomy: Yes (2011) 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/2009) Hx Coronary Stent: Yes - ANESTHESIA Hx Anesthesia: Yes Hx Anesthesia Reactions: No Hx Malignant Hyperthermia: No Meds Allergies/Adverse Reactions: Allergies Allergy/AdvReac Type Severity Reaction Status Date / Time acetaminophen [From Percocet] Allergy RASH Verified 11/14/17 16:28 atenolol Allergy RASH Verified 11/14/17 16:28 digoxin Allergy RASH Verified 11/14/17 16:28 milk Allergy ITCHING Verified 11/14/17 16:28 morphine Allergy RASH Verified 11/14/17 16:28 oxycodone HCl [From Percocet] Allergy RASH Verified 11/14/17 16:28 - Medications Medications: Current Medications Albuterol/Ipratropium (Duoneb 3 Mg/0.5 Mg (3 Ml) Ud) 3 ml IH QID [facility] Last Admin: 12/01/17 13:15 Dose: Not Given Amiodarone HCl (Cordarone) 200 mg PO DAILY [facility] Last Admin: 12/01/17 10:28 Dose: 200 mg Amlodipine Besylate (Norvasc) 10 mg PO DAILY [facility] Last Admin: 12/01/17 10:28 Dose: 10 mg Aspirin (Aspirin Chewable) 81 mg PO DAILY [facility] Last Admin: 12/01/17 10:28 Dose: 81 mg Calcium Carbonate (Oscal) 500 mg PO BID [facility] Last Admin: 12/01/17 18:10 Dose: 500 mg Carvedilol (Coreg) 25 mg PO BID [facility] Last Admin: 12/01/17 18:10 Dose: Not Given Clonidine HCl (Catapres-Tts3 0.3 Mg/24 Hr) 1 patch TD Q7D@1000 [facility] Clopidogrel Bisulfate (Plavix) 75 mg PO DAILY [facility] Last Admin: 12/01/17 10:28 Dose: 75 mg Docusate Sodium (Colace) 100 mg PO BID PRN PRN Reason: Constipation Last Admin: 12/01/17 10:28 Dose: 100 mg Enoxaparin Sodium (Lovenox) 30 mg SC DAILY [facility] Last Admin: 12/01/17 10:30 Dose: 30 mg Ergocalciferol (Drisdol 50,000 Intl Units Cap) 1 cap PO Q7D [facility] Hydromorphone HCl (Dilaudid) 1 mg IVP Q6H PRN PRN Reason: Pain, severe (8-10) Last Admin: 12/01/17 18:11 Dose: 1 mg Insulin Glargine (Lantus) 10 unit SC HS [facility] Insulin Human Regular (Novolin R) 0 unit SC ACHS [facility] PRN Reason: Protocol Last Admin: 12/01/17 17:01 Dose: Not Given Isosorbide Mononitrate (Imdur) 60 mg PO DAILY [facility] Last Admin: 12/01/17 10:29 Dose: 60 mg Lactulose (Generlac) [address] DAILY [facility] Last Admin: 12/01/17 10:53 Dose: 20 gm Levetiracetam (Keppra) 500 mg PO BID [facility] Last Admin: 12/01/17 18:10 Dose: 500 mg Lidocaine (Lidoderm) 1 ea TD DAILY PRN PRN Reason: Pain, moderate (4-7) Montelukast Sodium (Singulair) 10 mg PO DAILY [facility] Last Admin: 12/01/17 10:28 Dose: 10 mg Nitroglycerin (Nitrostat Sl Tab) 0.4 mg SL Q5M PRN PRN Reason: Pain, Mild (1-3) Pantoprazole Sodium (Protonix Ec Tab) 40 mg PO DAILY [facility] Last Admin: 12/01/17 10:28 Dose: 40 mg Ranolazine (Ranexa) 500 mg PO BID [facility] Last Admin: 12/01/17 18:10 Dose: 500 mg Rosuvastatin Calcium (Crestor) 10 mg PO [facility] Sertraline HCl (Zoloft) 50 mg PO DAILY [facility] Last Admin: 12/01/17 10:28 Dose: 50 mg Valproate Sodium (Depakene Oral Soln) 250 mg PO QID [facility] Last Admin: 12/01/17 18:10 Dose: 250 mg Vitamin B Complex/Vit C/Folic Acid (Nephro-Courtney) 1 tab PO 0800 [facility] Last Admin: 12/01/17 08:03 Dose: 1 tab Results - Vital Signs Recent Vital Signs: Last Vital Signs Temp 97.3 F L 12/01/17 15:45 Pulse 60 12/01/17 19:29 Resp 18 12/01/17 15:45 BP 116/75 12/01/17 18:10 Pulse Ox 98 12/01/17 18:00 - Labs Result Diagrams: 11/30/17 18:25 12/01/17 08:29 Labs: Laboratory Results - last 24 hr 11/30/17 12/01/17 12/01/17 19:04 06:17 08:29 Sodium 139 140 Potassium 6.1 H 4.5 Chloride 95 L 94 L Carbon Dioxide 22 28 Anion Gap 28 H 22 H BUN 73 H 29 H Creatinine 6.5 H 3.5 H Est GFR ( Amer) 12 24 Est GFR (Non-Af Amer) 10 20 POC Glucose (mg/dL) 364 H Random Glucose 206 H 326 H Calcium 7.9 L 8.2 L Total Bilirubin 0.6 AST 19 ALT 7 L D Alkaline Phosphatase 196 H D Total Creatine Kinase CK-MB (Mass) Troponin I Total Protein 7.7 Albumin 3.9 Globulin 3.8 Albumin/Globulin Ratio 1.0 12/01/17 12/01/17 12/01/17 11:24 11:25 11:44 Sodium Potassium Chloride Carbon Dioxide Anion Gap BUN Creatinine Est GFR ( Amer) Est GFR (Non-Af Amer) POC Glucose (mg/dL) 51 L 51 L 89 Random Glucose Calcium Total Bilirubin AST ALT Alkaline Phosphatase Total Creatine Kinase CK-MB (Mass) Troponin I Total Protein Albumin Globulin Albumin/Globulin Ratio 12/01/17 12/01/17 12:56 16:51 Sodium Potassium Chloride Carbon Dioxide Anion Gap BUN Creatinine Est GFR ( Amer) Est GFR (Non-Af Amer) POC Glucose (mg/dL) 154 H Random Glucose Calcium Total Bilirubin AST ALT Alkaline Phosphatase Total Creatine Kinase 28 L CK-MB (Mass) 1.11 Troponin I 0.2170 H* Total Protein Albumin Globulin Albumin/Globulin Ratio
[2017-12-01] MEDS: (Lantus) Insulin Glargine, Recombinant SC SCH (21:06)
[2017-12-02] MEDS: (Novolin R) Insulin Human Regular 100 units/ml vial SC SCH ×4 (08:30→22:50)
[2017-12-02] MEDS: Multivitamin Vitamin B Complex (Nephro-Vite) Tab PO SCH (08:32)
[2017-12-02] MEDS: Sevelamer Carb 0.8 gm/Packet PO SCH ×4 (08:48→18:41)
[2017-12-02] MEDS: Albuterol-Ipratrop 3 mg / 0.5 (3 ml) UD IH SCH ×3 (10:04→20:16)
[2017-12-02] MEDS: Enoxaparin 30 mg Syringe SC SCH (10:33)
[2017-12-02] MEDS: Valproic Acid 250 mg/5 ml UD Cup PO SCH ×4 (10:33→22:59)
[2017-12-02] MEDS: Pantoprazole 40 mg EC Tab PO SCH (10:34)
[2017-12-02] MEDS: Ranolazine 500 mg Extended Release Tablets PO SCH ×2 (10:34→18:40)
[2017-12-02] MEDS: Lactulose 10 gm/15 ml (Rectal Use) PR SCH (10:39)
[2017-12-02] MEDS ORDERED: HYDROmorphone 1 mg/ml ISec IVP PRN (12:45)
[2017-12-02] MEDS: HYDROmorphone 1 mg/ml ISec IVP PRN (12:50)
--- NOTE | 2017-12-02 15:23 | CP.PCM.PN ---
Subjective - Date & Time of Evaluation Date of Evaluation: 12/02/17 Time of Evaluation: 15:22 - Subjective Subjective: renal note pt seen and examined labs imaging vitals and meds reviewed Plan: extra session for ultrafiltration today as ordered routine HD tomorrow Objective - Vital Signs/Intake and Output Vital Signs (last 24 hours): Temp Pulse Resp BP Pulse Ox 97.3 F L 63 16 103/59 L 100 12/02/17 13:15 12/02/17 13:15 12/02/17 13:15 12/02/17 13:51 12/02/17 13:15 - Medications Medications: Current Medications Albuterol/Ipratropium (Duoneb 3 Mg/0.5 Mg (3 Ml) Ud) 3 ml IH RQID [facility] Amiodarone HCl (Cordarone) 200 mg PO DAILY [facility] Last Admin: 12/02/17 10:34 Dose: 200 mg Amlodipine Besylate (Norvasc) 10 mg PO DAILY [facility] Last Admin: 12/02/17 10:34 Dose: 10 mg Aspirin (Aspirin Chewable) 81 mg PO DAILY [facility] Last Admin: 12/02/17 10:34 Dose: 81 mg Calcium Carbonate (Oscal) 500 mg PO BID [facility] Last Admin: 12/02/17 10:34 Dose: 500 mg Carvedilol (Coreg) 25 mg PO BID [facility] Last Admin: 12/02/17 10:34 Dose: 25 mg Clonidine HCl (Catapres-Tts3 0.3 Mg/24 Hr) 1 patch TD Q7D@1000 [facility] Clopidogrel Bisulfate (Plavix) 75 mg PO DAILY [facility] Last Admin: 12/02/17 10:34 Dose: 75 mg Docusate Sodium (Colace) 100 mg PO BID PRN PRN Reason: Constipation Last Admin: 12/02/17 10:34 Dose: 100 mg Ergocalciferol (Drisdol 50,000 Intl Units Cap) 1 cap PO Q7D [facility] Heparin Sodium (Porcine) (Heparin) 5,000 units SC Q12 [facility] Hydromorphone HCl (Dilaudid) 1 mg IVP Q6H PRN PRN Reason: Pain, severe (8-10) Insulin Glargine (Lantus) 10 unit SC HS [facility] Last Admin: 12/01/17 21:06 Dose: Not Given Insulin Human Regular (Novolin R) 0 unit SC ACHS [facility] PRN Reason: Protocol Last Admin: 12/02/17 12:56 Dose: Not Given Isosorbide Mononitrate (Imdur) 60 mg PO DAILY [facility] Last Admin: 12/02/17 10:35 Dose: 60 mg Lactulose (Enulose) 20 gm PO DAILY [facility] Levetiracetam (Keppra) 500 mg PO BID [facility] Last Admin: 12/02/17 10:34 Dose: 500 mg Lidocaine (Lidoderm) 1 ea TD DAILY PRN PRN Reason: Pain, moderate (4-7) Montelukast Sodium (Singulair) 10 mg PO DAILY [facility] Last Admin: 12/02/17 10:34 Dose: 10 mg Nitroglycerin (Nitrostat Sl Tab) 0.4 mg SL Q5M PRN PRN Reason: Pain, Mild (1-3) Ondansetron HCl (Zofran Inj) 4 mg IVP Q6 PRN PRN Reason: Nausea/Vomiting Last Admin: 12/02/17 11:30 Dose: 4 mg Pantoprazole Sodium (Protonix Ec Tab) 40 mg PO DAILY [facility] Last Admin: 12/02/17 10:34 Dose: 40 mg Ranolazine (Ranexa) 500 mg PO BID [facility] Last Admin: 12/02/17 10:34 Dose: 500 mg Rosuvastatin Calcium (Crestor) 10 mg PO HS [facility] Last Admin: 12/01/17 21:25 Dose: 10 mg Sertraline HCl (Zoloft) 50 mg PO DAILY [facility] Last Admin: 12/02/17 11:30 Dose: 50 mg Sevelamer Carbonate (Renvela) 0.8 gm PO TIDCC [facility] Last Admin: 12/02/17 12:57 Dose: Not Given Valproate Sodium (Depakene Oral Soln) 250 mg PO QID [facility] Last Admin: 12/02/17 13:35 Dose: Not Given Vitamin B Complex/Vit C/Folic Acid (Nephro-Courtney) 1 tab PO 0800 [facility] Last Admin: 12/02/17 08:32 Dose: 1 tab - Labs Labs: 11/30/17 18:25 12/01/17 08:29 PT 13.5 SECONDS (9.7-12.2) H 11/30/17 18:25 INR 1.2 11/30/17 18:25 APTT 32 SECONDS (21-34) 03/31/18 18:25
--- NOTE | 2017-12-02 17:30 | CP.PCM.PN ---
Subjective - Date & Time of Evaluation Date of Evaluation: 12/02/17 Time of Evaluation: 17:28 - Subjective Subjective: has watery diarhea 2 times today Objective - Vital Signs/Intake and Output Vital Signs (last 24 hours): Temp Pulse Resp BP Pulse Ox 97.3 F L 63 16 105/52 L 100 12/02/17 13:15 12/02/17 13:15 12/02/17 13:15 12/02/17 15:15 12/02/17 13:15 - Medications Medications: Current Medications Albuterol/Ipratropium (Duoneb 3 Mg/0.5 Mg (3 Ml) Ud) 3 ml IH RQID [facility] Amiodarone HCl (Cordarone) 200 mg PO DAILY [facility] Last Admin: 12/02/17 10:34 Dose: 200 mg Amlodipine Besylate (Norvasc) 10 mg PO DAILY [facility] Last Admin: 12/02/17 10:34 Dose: 10 mg Aspirin (Aspirin Chewable) 81 mg PO DAILY [facility] Last Admin: 12/02/17 10:34 Dose: 81 mg Calcium Carbonate (Oscal) 500 mg PO BID [facility] Last Admin: 12/02/17 10:34 Dose: 500 mg Carvedilol (Coreg) 25 mg PO BID [facility] Last Admin: 12/02/17 10:34 Dose: 25 mg Clonidine HCl (Catapres-Tts3 0.3 Mg/24 Hr) 1 patch TD Q7D@1000 [facility] Clopidogrel Bisulfate (Plavix) 75 mg PO DAILY [facility] Last Admin: 12/02/17 10:34 Dose: 75 mg Ergocalciferol (Drisdol 50,000 Intl Units Cap) 1 cap PO Q7D [facility] Heparin Sodium (Porcine) (Heparin) 5,000 units SC Q12 [facility] Hydromorphone HCl (Dilaudid) 1 mg IVP Q6H PRN PRN Reason: Pain, severe (8-10) Insulin Glargine (Lantus) 10 unit SC HS [facility] Last Admin: 12/01/17 21:06 Dose: Not Given Insulin Human Regular (Novolin R) 0 unit SC ACHS [facility] PRN Reason: Protocol Last Admin: 12/02/17 12:56 Dose: Not Given Isosorbide Mononitrate (Imdur) 60 mg PO DAILY [facility] Last Admin: 12/02/17 10:35 Dose: 60 mg Levetiracetam (Keppra) 500 mg PO BID [facility] Last Admin: 12/02/17 10:34 Dose: 500 mg Lidocaine (Lidoderm) 1 ea TD DAILY PRN PRN Reason: Pain, moderate (4-7) Montelukast Sodium (Singulair) 10 mg PO DAILY [facility] Last Admin: 12/02/17 10:34 Dose: 10 mg Nitroglycerin (Nitrostat Sl Tab) 0.4 mg SL Q5M PRN PRN Reason: Pain, Mild (1-3) Ondansetron HCl (Zofran Inj) 4 mg IVP Q6 PRN PRN Reason: Nausea/Vomiting Last Admin: 12/02/17 11:30 Dose: 4 mg Pantoprazole Sodium (Protonix Ec Tab) 40 mg PO DAILY [facility] Last Admin: 12/02/17 10:34 Dose: 40 mg Ranolazine (Ranexa) 500 mg PO BID [facility] Last Admin: 12/02/17 10:34 Dose: 500 mg Rosuvastatin Calcium (Crestor) 10 mg PO HS [facility] Last Admin: 12/01/17 21:25 Dose: 10 mg Sertraline HCl (Zoloft) 50 mg PO DAILY [facility] Last Admin: 12/02/17 11:30 Dose: 50 mg Sevelamer Carbonate (Renvela) 0.8 gm PO TIDCC [facility] Last Admin: 12/02/17 12:57 Dose: Not Given Valproate Sodium (Depakene Oral Soln) 250 mg PO QID [facility] Last Admin: 12/02/17 13:35 Dose: Not Given Vitamin B Complex/Vit C/Folic Acid (Nephro-Courtney) 1 tab PO 0800 [facility] Last Admin: 12/02/17 08:32 Dose: 1 tab - Labs Labs: 11/30/17 18:25 12/01/17 08:29 PT 13.5 SECONDS (9.7-12.2) H 11/30/17 18:25 INR 1.2 11/30/17 18:25 APTT 32 SECONDS (21-34) 11/30/17 18:25 - Constitutional Appears: In Acute Distress - Head Exam Head Exam: ATRAUMATIC - Eye Exam Eye Exam: Conjunctival injection - ENT Exam ENT Exam: Mucous Membranes Dry, Normal External Ear Exam - Neck Exam Neck Exam: Full ROM - Respiratory Exam Respiratory Exam: Decreased Breath Sounds - Cardiovascular Exam Cardiovascular Exam: REGULAR RHYTHM - GI/Abdominal Exam GI & Abdominal Exam: Tenderness - Rectal Exam Additional comments: watery stoole - Back Exam Back Exam: CVA tenderness (L) - Psychiatric Exam Psychiatric exam: Depressed - Skin Skin Exam: Pallor Assessment and Plan - Assessment and Plan (Free Text) Assessment: ac watery diarhea abd pain dm esrf chf Plan: cont as per orders
--- NOTE | 2017-12-02 21:17 | CARD ---
APPROVED REPORT EKG Measurement Heart [id number] <Conclusion> Normal sinus rhythm Possible Left atrial enlargement Left ventricular hypertrophy with repolarization abnormality Abnormal ECG
[2017-12-02] MEDS: (Lantus) Insulin Glargine, Recombinant SC SCH (22:45)
[2017-12-03] MEDS: Albuterol-Ipratrop 3 mg / 0.5 (3 ml) UD IH SCH ×3 (08:04→16:27)
[2017-12-03] MEDS: (Novolin R) Insulin Human Regular 100 units/ml vial SC SCH ×3 (08:44→17:37)
[2017-12-03] MEDS: Multivitamin Vitamin B Complex (Nephro-Vite) Tab PO SCH (08:45)
[2017-12-03] MEDS: Sevelamer Carb 0.8 gm/Packet PO SCH ×3 (08:45→17:38)
[2017-12-03] MEDS: Valproic Acid 250 mg/5 ml UD Cup PO SCH ×3 (08:59→18:00)
[2017-12-03] MEDS: Ranolazine 500 mg Extended Release Tablets PO SCH ×2 (08:59→17:38)
[2017-12-03] MEDS: Pantoprazole 40 mg EC Tab PO SCH (08:59)
--- NOTE | 2017-12-03 11:57 | CP.PCM.PN ---
Subjective - Date & Time of Evaluation Date of Evaluation: 12/03/17 Time of Evaluation: 11:54 - Subjective Subjective: seen having dialysis feels beter no sob no diarehea today Objective - Vital Signs/Intake and Output Vital Signs (last 24 hours): Temp Pulse Resp BP Pulse Ox 97.9 F 63 18 163/47 H 97 12/03/17 09:30 12/03/17 09:30 12/03/17 09:30 12/03/17 11:30 12/03/17 09:30 - Medications Medications: Current Medications Albuterol/Ipratropium (Duoneb 3 Mg/0.5 Mg (3 Ml) Ud) 3 ml IH RQID [facility] Last Admin: 12/03/17 11:52 Dose: Not Given Amiodarone HCl (Cordarone) 200 mg PO DAILY [facility] Last Admin: 12/03/17 08:59 Dose: 200 mg Amlodipine Besylate (Norvasc) 10 mg PO DAILY [facility] Last Admin: 12/03/17 10:46 Dose: Not Given Aspirin (Aspirin Chewable) 81 mg PO DAILY [facility] Last Admin: 12/03/17 08:59 Dose: 81 mg Calcium Carbonate (Oscal) 500 mg PO BID [facility] Last Admin: 12/03/17 08:59 Dose: 500 mg Carvedilol (Coreg) 25 mg PO BID [facility] Last Admin: 12/03/17 10:45 Dose: Not Given Clonidine HCl (Catapres-Tts3 0.3 Mg/24 Hr) 1 patch TD Q7D@1000 [facility] Clopidogrel Bisulfate (Plavix) 75 mg PO DAILY [facility] Last Admin: 12/03/17 08:59 Dose: 75 mg Ergocalciferol (Drisdol 50,000 Intl Units Cap) 1 cap PO Q7D [facility] Heparin Sodium (Porcine) (Heparin) 5,000 units SC Q12 [facility] Last Admin: 12/03/17 08:59 Dose: 5,000 units Heparin Sodium (Porcine) (Heparin) 3,700 units IVP TTS [facility] Last Admin: 12/03/17 11:33 Dose: 3,700 units Hydromorphone HCl (Dilaudid) 2 mg PO Q8 PRN PRN Reason: Pain, severe (8-10) Last Admin: 12/03/17 09:07 Dose: 2 mg Insulin Glargine (Lantus) 10 unit SC HS [facility] Last Admin: 12/02/17 22:45 Dose: Not Given Insulin Human Regular (Novolin R) 0 unit SC ACHS [facility] PRN Reason: Protocol Last Admin: 12/03/17 08:44 Dose: 3 unit Isosorbide Mononitrate (Imdur) 60 mg PO DAILY [facility] Last Admin: 12/03/17 10:46 Dose: Not Given Levetiracetam (Keppra) 500 mg PO BID [facility] Last Admin: 12/03/17 08:59 Dose: 500 mg Lidocaine (Lidoderm) 1 ea TD DAILY PRN PRN Reason: Pain, moderate (4-7) Montelukast Sodium (Singulair) 10 mg PO DAILY [facility] Last Admin: 12/03/17 08:59 Dose: 10 mg Nitroglycerin (Nitrostat Sl Tab) 0.4 mg SL Q5M PRN PRN Reason: Pain, Mild (1-3) Ondansetron HCl (Zofran Inj) 4 mg IVP Q6 PRN PRN Reason: Nausea/Vomiting Last Admin: 12/02/17 11:30 Dose: 4 mg Pantoprazole Sodium (Protonix Ec Tab) 40 mg PO DAILY [facility] Last Admin: 12/03/17 08:59 Dose: 40 mg Ranolazine (Ranexa) 500 mg PO BID [facility] Last Admin: 12/03/17 08:59 Dose: 500 mg Rosuvastatin Calcium (Crestor) 10 mg PO [facility] Last Admin: 12/02/17 22:04 Dose: 10 mg Sertraline HCl (Zoloft) 50 mg PO DAILY [facility] Last Admin: 12/03/17 08:59 Dose: 50 mg Sevelamer Carbonate (Renvela) 0.8 gm PO TIDCC [facility] Last Admin: 12/03/17 08:45 Dose: 0.8 gm Valproate Sodium (Depakene Oral Soln) 250 mg PO QID [facility] Last Admin: 12/03/17 08:59 Dose: 250 mg Vitamin B Complex/Vit C/Folic Acid (Nephro-Courtney) 1 tab PO 0800 [facility] Last Admin: 12/03/17 08:45 Dose: 1 tab - Labs Labs: 11/30/17 18:25 12/01/17 08:29 PT 13.5 SECONDS (9.7-12.2) H 11/30/17 18:25 INR 1.2 11/30/17 18:25 APTT 32 SECONDS (21-34) 11/30/17 18:25 - Constitutional Appears: Non-toxic - Head Exam Head Exam: NORMAL INSPECTION - Eye Exam Eye Exam: Conjunctival injection - ENT Exam ENT Exam: Mucous Membranes Dry - Neck Exam Neck Exam: Full ROM - Respiratory Exam Respiratory Exam: Clear to Ausculation Bilateral - Cardiovascular Exam Cardiovascular Exam: REGULAR RHYTHM - GI/Abdominal Exam GI & Abdominal Exam: Normal Bowel Sounds - Rectal Exam Rectal Exam: NORMAL INSPECTION - Back Exam Back Exam: CVA tenderness (L) - Psychiatric Exam Psychiatric exam: Normal Affect - Skin Skin Exam: Pallor Assessment and Plan - Assessment and Plan (Free Text) Assessment: diarhea improved esrf chf dm s/p ampuation back pain beter Plan: d/c today
[2017-12-03 13:01] VITALS: O2SAT 100
[2017-12-03 16:07] VITALS: RESP 20; TEMP 97.4
--- NOTE | 2017-12-03 16:09 | CP.PCM.PN ---
Subjective - Date & Time of Evaluation Date of Evaluation: 12/03/17 Time of Evaluation: 16:00 - Subjective Subjective: CLAIM ADJUSTER NOTES Patient seen after HD , denies any chest pain, sob, dizziness,no diarrhea reported vss stable after HD stool culture and c- dif - negative D/w Dr. Li, stable for discharge home today and continue HD as scheduled and resume all home medications discharge plan discussed with patient , who understands and agrees with plan Objective - Vital Signs/Intake and Output Vital Signs (last 24 hours): Temp Pulse Resp BP Pulse Ox 97.4 F L 69 20 159/77 H 100 12/03/17 16:00 12/03/17 16:00 12/03/17 16:00 12/03/17 16:00 12/03/17 16:00 - Medications Medications: Current Medications Albuterol/Ipratropium (Duoneb 3 Mg/0.5 Mg (3 Ml) Ud) 3 ml IH RQID [facility] Last Admin: 12/03/17 11:52 Dose: Not Given Amiodarone HCl (Cordarone) 200 mg PO DAILY [facility] Last Admin: 12/03/17 08:59 Dose: 200 mg Amlodipine Besylate (Norvasc) 10 mg PO DAILY [facility] Last Admin: 12/03/17 10:46 Dose: Not Given Aspirin (Aspirin Chewable) 81 mg PO DAILY [facility] Last Admin: 12/03/17 08:59 Dose: 81 mg Calcium Carbonate (Oscal) 500 mg PO BID [facility] Last Admin: 12/03/17 08:59 Dose: 500 mg Carvedilol (Coreg) 25 mg PO BID [facility] Last Admin: 12/03/17 10:45 Dose: Not Given Clonidine HCl (Catapres-Tts3 0.3 Mg/24 Hr) 1 patch TD Q7D@1000 [facility] Clopidogrel Bisulfate (Plavix) 75 mg PO DAILY [facility] Last Admin: 12/03/17 08:59 Dose: 75 mg Ergocalciferol (Drisdol 50,000 Intl Units Cap) 1 cap PO Q7D [facility] Heparin Sodium (Porcine) (Heparin) 5,000 units SC Q12 [facility] Last Admin: 12/03/17 08:59 Dose: 5,000 units Heparin Sodium (Porcine) (Heparin) 3,700 units IVP TTS [facility] Last Admin: 12/03/17 11:33 Dose: 3,700 units Hydromorphone HCl (Dilaudid) 2 mg PO Q8 PRN PRN Reason: Pain, severe (8-10) Last Admin: 12/03/17 09:07 Dose: 2 mg Insulin Glargine (Lantus) 10 unit SC [facility] Last Admin: 12/02/17 22:45 Dose: Not Given Insulin Human Regular (Novolin R) 0 unit SC [facility] PRN Reason: Protocol Last Admin: 12/03/17 12:13 Dose: Not Given Isosorbide Mononitrate (Imdur) 60 mg PO DAILY [facility] Last Admin: 12/03/17 10:46 Dose: Not Given Levetiracetam (Keppra) 500 mg PO BID [facility] Last Admin: 12/03/17 08:59 Dose: 500 mg Lidocaine (Lidoderm) 1 ea TD DAILY PRN PRN Reason: Pain, moderate (4-7) Montelukast Sodium (Singulair) 10 mg PO DAILY [facility] Last Admin: 12/03/17 08:59 Dose: 10 mg Nitroglycerin (Nitrostat Sl Tab) 0.4 mg SL Q5M PRN PRN Reason: Pain, Mild (1-3) Ondansetron HCl (Zofran Inj) 4 mg IVP Q6 PRN PRN Reason: Nausea/Vomiting Last Admin: 12/02/17 11:30 Dose: 4 mg Pantoprazole Sodium (Protonix Ec Tab) 40 mg PO DAILY [facility] Last Admin: 12/03/17 08:59 Dose: 40 mg Ranolazine (Ranexa) 500 mg PO BID [facility] Last Admin: 12/03/17 08:59 Dose: 500 mg Rosuvastatin Calcium (Crestor) 10 mg PO [facility] Last Admin: 12/02/17 22:04 Dose: 10 mg Sertraline HCl (Zoloft) 50 mg PO DAILY [facility] Last Admin: 12/03/17 08:59 Dose: 50 mg Sevelamer Carbonate (Renvela) 0.8 gm PO TIDCC [facility] Last Admin: 12/03/17 12:13 Dose: Not Given Valproate Sodium (Depakene Oral Soln) 250 mg PO QID [facility] Last Admin: 12/03/17 13:48 Dose: 250 mg Vitamin B Complex/Vit C/Folic Acid (Nephro-Courtney) 1 tab PO 0800 [facility] Last Admin: 12/03/17 08:45 Dose: 1 tab - Labs Labs: 11/30/17 18:25 12/01/17 08:29 PT 13.5 SECONDS (9.7-12.2) H 11/30/17 18:25 INR 1.2 11/30/17 18:25 APTT 32 SECONDS (21-34) 11/30/17 18:25
[2017-12-03 16:32] VITALS: PULSE 70
--- NOTE | 2017-12-03 16:49 | CP.PCM.PN ---
Subjective - Date & Time of Evaluation Date of Evaluation: 12/03/17 Time of Evaluation: 16:48 - Subjective Subjective: renal note pt seen and examined while on HD labs imaging vitals and meds reviewed Plan: routine HD today Objective - Vital Signs/Intake and Output Vital Signs (last 24 hours): Temp Pulse Resp BP Pulse Ox 97.4 F L 70 20 159/77 H 100 12/03/17 16:00 12/03/17 16:00 12/03/17 16:00 12/03/17 16:00 12/03/17 16:00 - Medications Medications: Current Medications Albuterol/Ipratropium (Duoneb 3 Mg/0.5 Mg (3 Ml) Ud) 3 ml IH RQID [facility] Last Admin: 12/03/17 16:27 Dose: 3 ml Amiodarone HCl (Cordarone) 200 mg PO DAILY [facility] Last Admin: 12/03/17 08:59 Dose: 200 mg Amlodipine Besylate (Norvasc) 10 mg PO DAILY [facility] Last Admin: 12/03/17 10:46 Dose: Not Given Aspirin (Aspirin Chewable) 81 mg PO DAILY [facility] Last Admin: 12/03/17 08:59 Dose: 81 mg Calcium Carbonate (Oscal) 500 mg PO BID [facility] Last Admin: 12/03/17 08:59 Dose: 500 mg Carvedilol (Coreg) 25 mg PO BID [facility] Last Admin: 12/03/17 10:45 Dose: Not Given Clonidine HCl (Catapres-Tts3 0.3 Mg/24 Hr) 1 patch TD Q7D@1000 [facility] Clopidogrel Bisulfate (Plavix) 75 mg PO DAILY [facility] Last Admin: 12/03/17 08:59 Dose: 75 mg Ergocalciferol (Drisdol 50,000 Intl Units Cap) 1 cap PO Q7D [facility] Heparin Sodium (Porcine) (Heparin) 5,000 units SC Q12 [facility] Last Admin: 12/03/17 08:59 Dose: 5,000 units Heparin Sodium (Porcine) (Heparin) 3,700 units IVP TTS [facility] Last Admin: 12/03/17 11:33 Dose: 3,700 units Hydromorphone HCl (Dilaudid) 2 mg PO Q8 PRN PRN Reason: Pain, severe (8-10) Last Admin: 12/03/17 09:07 Dose: 2 mg Insulin Glargine (Lantus) 10 unit SC [facility] Last Admin: 12/02/17 22:45 Dose: Not Given Insulin Human Regular (Novolin R) 0 unit SC [facility] PRN Reason: Protocol Last Admin: 12/03/17 12:13 Dose: Not Given Isosorbide Mononitrate (Imdur) 60 mg PO DAILY [facility] Last Admin: 12/03/17 10:46 Dose: Not Given Levetiracetam (Keppra) 500 mg PO BID [facility] Last Admin: 12/03/17 08:59 Dose: 500 mg Lidocaine (Lidoderm) 1 ea TD DAILY PRN PRN Reason: Pain, moderate (4-7) Montelukast Sodium (Singulair) 10 mg PO DAILY [facility] Last Admin: 12/03/17 08:59 Dose: 10 mg Nitroglycerin (Nitrostat Sl Tab) 0.4 mg SL Q5M PRN PRN Reason: Pain, Mild (1-3) Ondansetron HCl (Zofran Inj) 4 mg IVP Q6 PRN PRN Reason: Nausea/Vomiting Last Admin: 12/02/17 11:30 Dose: 4 mg Pantoprazole Sodium (Protonix Ec Tab) 40 mg PO DAILY [facility] Last Admin: 12/03/17 08:59 Dose: 40 mg Ranolazine (Ranexa) 500 mg PO BID [facility] Last Admin: 12/03/17 08:59 Dose: 500 mg Rosuvastatin Calcium (Crestor) 10 mg PO [facility] Last Admin: 12/02/17 22:04 Dose: 10 mg Sertraline HCl (Zoloft) 50 mg PO DAILY [facility] Last Admin: 12/03/17 08:59 Dose: 50 mg Sevelamer Carbonate (Renvela) 0.8 gm PO TIDCC [facility] Last Admin: 12/03/17 12:13 Dose: Not Given Valproate Sodium (Depakene Oral Soln) 250 mg PO QID [facility] Last Admin: 12/03/17 13:48 Dose: 250 mg Vitamin B Complex/Vit C/Folic Acid (Nephro-Courtney) 1 tab PO 0800 [facility] Last Admin: 12/03/17 08:45 Dose: 1 tab - Labs Labs: 11/30/17 18:25 12/01/17 08:29 PT 13.5 SECONDS (9.7-12.2) H 11/30/17 18:25 INR 1.2 11/30/17 18:25 APTT 32 SECONDS (21-34) 11/30/17 18:25
[2017-12-03 17:43] VITALS: BP 176/73
--- NOTE | 2017-12-04 07:54 | PCM.HF ---
Heart Failure Core Measure - Heart Failure Ejection Fraction: 40 % or Greater RAÚL Inhibitor Prescribed: No Contraindication/Reason for not providing: ESRD Beta-Andrew Prescribed: Carvedilol Angiotensin II Receptor Andrew Prescribed: No Contraindication/Reason for not providing: ESRD AnticoagulationTherapy for Atrial Fibrillation/Atrialflutter: No Contraindication/Reason for not providing: HX OF GI BLEED Aldosterone Antagonist Prescribed: No Contraindication/Reason for not providing: ESRD Hydralazine Nitrate Prescribed: No Contraindication/Reason for not providing: EF>45 Implantable Cardioverter Defibrillator Therapy: No Contraindication/Reason for not providing: EF>45 Cardiac Resynchronization Therapy Prescribed: No Contraindication/Reason for not providing: EF>45 - Follow up Will be discharged to: Home Follow Up Date (must be within 7 days from discharge): 12/05/17 Follow Up Time: 09:00
== END 2017-12-03 19:00 | disposition home or self-care (01) ==
LOC: C.ER 16:51 → C.9E 21:19 → C.6T 21:51
PROVIDERS: ADMIT Internal Medicine; ATTEND Internal Medicine
DX: R07.89 Other chest pain (principal); E03.9 Hypothyroidism, unspecified; E11.22 Type 2 diabetes mellitus with diabetic chronic kidney disease; F02.80 Dementia in other diseases classified elsewhere, unspecified severity, without behavioral disturbance, psychotic disturbance, mood disturbance, and anxiety; F64.9 Gender identity disorder, unspecified; H54.8 Legal blindness, as defined in USA; G30.9 Alzheimer's disease, unspecified; I13.2 Hypertensive heart and chronic kidney disease with heart failure and with stage 5 chronic kidney disease, or end stage renal disease; I25.10 Atherosclerotic heart disease of native coronary artery without angina pectoris; I48.91 Unspecified atrial fibrillation; I48.92 Unspecified atrial flutter; I50.32 Chronic diastolic (congestive) heart failure; I51.3 Intracardiac thrombosis, not elsewhere classified; J44.9 Chronic obstructive pulmonary disease, unspecified; N18.6 End stage renal disease; N25.81 Secondary hyperparathyroidism of renal origin; Z86.73 Personal history of transient ischemic attack (TIA), and cerebral infarction without residual deficits; Z95.1 Presence of aortocoronary bypass graft; Z99.2 Dependence on renal dialysis
CPT/HCPCS: 36415; 71045; 80048; 80053; 82948; 83880; 84484; 85025; 85610; 85730; 87045; 87230; 89055; 93005; 94640; 96374; 99285; G0257; G0378; J1170; J1644; J1650; J2405

== ENCOUNTER 2017-12-07 14:30 | Emergency (ER) | payer OTHER ==
[2017-12-07 14:30] VITALS: PULSE 66; BMI 18.8
--- NOTE | 2017-12-07 15:07 | C.PDOC ---
History Of Present Illness 37 year old male who presents to the ED with complaints of chest pain and SOB since this morning. Patient is on dialysis and missed dialysis today, because he complained of pain; last dialysis was 2 days ago. Patient has an extensive history for similar ED presentations. No other physical complaints at this time. Time Seen by Provider: 12/07/17 14:55 Chief Complaint (Nursing): Chest Pain History Per: Patient History/Exam Limitations: no limitations Onset/Duration Of Symptoms: Hrs Current Symptoms Are (Timing): Still Present Quality: "Pain" Additional History Per: Patient Past Medical History Reviewed: Historical Data, Nursing Documentation, Vital Signs Vital Signs: Last Vital Signs Temp 98.5 F 12/07/17 17:20 Pulse 81 12/07/17 17:20 Resp 18 12/07/17 17:20 BP 247/85 H 12/07/17 17:20 Pulse Ox 100 12/07/17 17:29 - Medical History PMH: Alzheimer's Disease, Anemia, Anxiety, Arthritis, Asthma, Atrial Fibrillation, Bronchitis, CAD, Cardia Arrhythmia, CHF, COPD, CVA, Depression, Diabetes, Deep Vein Thrombosis, Gastritis, Gastrointestinal Ulcer, Gall Bladder Disease, HTN, Hypercholesterolemia, Hypothyroidism, Pneumonia, End Stage Renal Disease, Chronic Kidney Disease, Seizures Denies: Hyperthyroidism, Kidney Stones, Sexually Transmitted Disease Surgical History: CABG (12/2009), Cholecystectomy (2011), Coronary Stent - [facility] Procedures (11/15/17) ABDOMINAL WALL SINOGRAM (12/31/13) C.A.T. SCAN OF ABDOMEN (10/31/13) CENTRAL VENOUS CATHETER PLACEMENT WITH GUIDANCE (02/10/15) CHANGE OTHER DEVICE IN TRUNK SUBCU/FASCIA, ASPHALT PAVER OPERATOR APPROACH (06/01/17) DILATE R ANT TIB ART W DRUG-ELUT INTRALUM, PERC (08/12/15) DILATION OF LEFT FEMORAL ARTERY, PERCUTANEOUS APPROACH (07/04/16) DILATION OF RIGHT FEMORAL ARTERY, PERCUTANEOUS APPROACH (08/12/15) DILATION OF RIGHT POPLITEAL ARTERY, PERCUTANEOUS APPROACH (08/12/15) DX ULTRASOUND-HEART (01/05/13) ENTERAL INFUSION OF CONCENTRATED NUT. SUBSTANCES (06/28/13) EXCIS DEBRIDE OF WOUND, INFECT, OR BURN (08/03/14) EXCISION OF STOMACH, ENDO, DIAGN (03/03/17) EXTIRPATION OF MATTER FROM L FEM ART, PERC APPROACH (07/04/16) EXTIRPATION OF MATTER FROM R FEM ART, PERC APPROACH (08/12/15) EXTIRPATION OF MATTER FROM R POPL ART, PERC APPROACH (08/12/15) FLUOROSCOPY OF L LOW EXTREM ART USING L OSM CONTRAST (08/12/15) FLUOROSCOPY OF R LOW EXTREM ART USING L OSM CONTRAST (08/12/15) FLUOROSCOPY OF RIGHT JUGULAR VEINS, GUIDANCE (06/01/17) FREE SKIN GRAFT NEC (08/03/14) HEAD SOFT TISS X-RAY NEC (04/15/13) HEMODIALYSIS (04/28/15) INCIS W REM OF FORIEGN BODY OR DEV FROM SKIN & SUBCUT TISSUE (08/08/13) INSERT INFUSION DEV IN R INT JUGULAR VEIN, PERC (06/01/17) INSERTION OF INFUSION DEV INTO R SUBCLAV VEIN, PERC APPROACH (01/19/16) INSERTION OF INFUSION DEV INTO SUP VENA CAVA, PERC APPROACH (05/17/17) INSPECTION OF UPPER INTESTINAL TRACT, ENDO (03/03/17) INTRODUCE OF OTH THROMBOLYTIC INTO PERIPH ART, PERC APPROACH (08/12/15) LAPAROSCOPIC CHOLECYSTECTOMY (09/21/13) LOC EXC LES METATAR/TAR (06/01/14) PACKED CELL TRANSFUSION (06/01/14) PERCUTAN LIVER ASPIRAT (12/31/13) PERFORMANCE OF URINARY FILTRATION, MULTIPLE (05/17/17) PERFORMANCE OF URINARY FILTRATION, SINGLE (12/18/16) SKIN & SUBQ INCISION NEC (10/24/14) TETANUS TOXOID ADMINIST (06/13/14) TRANSFUSE NONAUT RED BLOOD CELLS IN PERIPH VEIN, PERC (04/09/17) ULTRASONOGRAPHY OF RIGHT AND LEFT HEART (04/09/17) ULTRASONOGRAPHY OF SUPERIOR VENA CAVA, GUIDANCE (02/20/17) VENOUS CATHETERIZATION FOR RENAL DIALYSIS (08/08/13) VENOUS CATHETERIZATION NEC (04/30/13) Family History: States: Unknown Family Hx - Social History Hx Tobacco Use: No Hx Alcohol Use: No Hx Substance Use: No - Immunization History Hx Tetanus Toxoid Vaccination: Yes Hx Influenza Vaccination: Yes Hx Pneumococcal Vaccination: Yes Review Of Systems Cardiovascular: Positive for: Chest Pain Respiratory: Positive for: Shortness of Breath Physical Exam - Physical Exam Appears: Non-toxic, No Acute Distress Skin: Normal Color, Warm, Dry Head: Atraumatic, Normacephalic Eye(s): bilateral: Other (blind) Oral Mucosa: Moist Neck: Supple Chest: Symmetrical, No Deformity, No Tenderness Cardiovascular: Rhythm Regular, No Murmur, Other (port right chest wall) Respiratory: Normal Breath Sounds, No Rales, No Rhonchi, No Wheezing Extremity: Other (bilateral below-knee amputations ) Neurological/Psych: Oriented x3, Normal Speech, Normal Cognition ED Course And Treatment - Laboratory Results Result Diagrams: 12/07/17 15:29 12/07/17 15:29 Lab Interpretation: No Acute Changes ECG: Interpreted By Me, Viewed By Me ECG Rhythm: Sinus Rhythm, L BBB O2 Sat by Pulse Oximetry: 100 (on RA) Pulse Ox Interpretation: Normal - Other Rad CXR X-Ray: Interpreted by Me, Viewed By Me, Read By Radiologist Interpretation: Chest x-ray single frontal view. History: Chest pain. Comparison: 11/30/2017. Findings: Right central venous catheter tip extending into the right atrium. Moderate venous congestion with patchy bibasilar airspace opacities. Small left pleural effusion. Status post median sternotomy. Cardiomegaly. Degenerative changes in the spine and shoulders. Distended loops of small bowel in the upper abdomen. Impression: Right central venous catheter tip extending into the right atrium. Moderate venous congestion with patchy bibasilar airspace opacities. Small left pleural effusion. Status post median sternotomy. Cardiomegaly. Degenerative changes in the spine and shoulders. Distended loops of small bowel in the upper abdomen. Medical Decision Making Medical Decision Making: Impression: chest pain and shortness of breath, missed dialysis, chronic pain Plan: * Bloodwork * CXR * EKG Progress: Bloodwork, CXR, EKG ordered and reviewed. Labs with no acute changes and consistent with ESRD. patient is well known to ED for similar presentations. Patient asking for pain meds. Dilaudid PO ordered. Contact Dr Li is familiar with patient and accepts admission. Disposition Counseled Patient/Family Regarding: Diagnosis, Need For Followup, Rx Given - Disposition Disposition: HOSPITALIZED Disposition Time: 15:50 Condition: STABLE - POA Present On Arrival: None - Clinical Impression Clinical Impression: ESRD (end stage renal disease) on dialysis, Chest pain - PA / MANAGEMENT RETAIL INTERN / Resident Statement MD/DO has reviewed & agrees with the documentation as recorded. - Scribe Statement The provider has reviewed the documentation as recorded by the Scribe (Yaneli Tavera) All medical record entries made by the Scribe were at my direction and personally dictated by me. I have reviewed the chart and agree that the record accurately reflects my personal performance of the history, physical exam, medical decision making, and the department course for this patient. I have also personally directed, reviewed, and agree with the discharge instructions and disposition. Decision To Admit - Pt Status Changed To: Hospital Disposition Of: Inpatient - Admit Certification Admit to Inpatient:: After my assessment, the patient will require hospitalization for at least two midnights. This is because of the severity of symptoms shown, intensity of services needed, and/or the medical risk in this patient being treated as an outpatient. - InPatient: Physician Admission Certification: I certify that this patient requires 2 or more midnights of care for the following reason:: Patient with h/o CHF and ESRD on HD, missed dialysis today and complains of chest pain and SOB. - . Bed Request Type: Telemetry Admitting Physician: Sybil Li Patient Diagnosis: ESRD (end stage renal disease) on dialysis, Chest pain
[2017-12-07 15:34] LABS: BASO # 0.2 K/uL (0.0-0.2); BASO % 1.8 % (0.0-2.0); EOS # 0.3 K/uL (0.0-0.7); EOS % 3.8 % (0.0-4.0); HEMOGLOBIN 12.5 g/dL (12.0-18.0); LYMPH # 2.1 K/uL (1.0-4.3); LYMPH % 22.7 % (20.0-40.0); MEAN CORPUSCULAR HEMOGLOBIN 29.9 pg (27.0-31.0); MEAN CORPUSCULAR HGB CONC 32.3 g/dL (33.0-37.0); MEAN PLATELET VOLUME 9.1 fL (7.2-11.7); MONO # 0.6 K/uL (0.0-0.8); MONO % 6.7 % (0.0-10.0); RBC 4.18 Mil/uL (4.40-5.90); RED CELL DISTRIBUTION WIDTH 16.8 % (11.5-14.5); WHITE BLOOD COUNT 9.1 K/uL (4.8-10.8)
[2017-12-07 15:35] LABS: MEAN CELL VOLUME 92.5 fL (80.0-94.0)
--- NOTE | 2017-12-07 15:39 | RAD ---
Chest x-ray single frontal view History: Chest pain. Comparison: 11/30/2017 Findings: Right central venous catheter tip extending into the right atrium. Moderate venous congestion with patchy bibasilar airspace opacities. Small left pleural effusion. Status post median sternotomy. Cardiomegaly. Degenerative changes in the spine and shoulders. Distended loops of small bowel in the upper abdomen. Impression: Right central venous catheter tip extending into the right atrium. Moderate venous congestion with patchy bibasilar airspace opacities. Small left pleural effusion. Status post median sternotomy. Cardiomegaly. Degenerative changes in the spine and shoulders. Distended loops of small bowel in the upper abdomen.
[2017-12-07 15:41] LABS: INR 1.1; PROTHROMBIN TIME 12.8 SECONDS (9.7-12.2)
[2017-12-07 15:56] LABS: CK-MB 0.91 ng/mL (0.0-3.38); TROPONIN I 0.076 ng/mL (0.00-0.120)
[2017-12-07 15:58] LABS: ALBUMIN 4.2 g/dL (3.5-5.0); CALCIUM 8.8 mg/dl (8.6-10.4)
[2017-12-07 19:11] VITALS: O2SAT 98
[2017-12-07 22:05] VITALS: BP 220/111; PULSE 90; RESP 16; TEMP 98
== END 2017-12-07 22:04 | disposition left against medical advice (07) ==
LOC: C.ER 14:30 → C.9E 15:49 → UNDOADMIN 15:49 → C.5S 17:06 → C.9E 17:06 → C.5S 17:20 → C.9E 17:20 → C.ER 22:04
DX: N18.6 End stage renal disease (principal); Z99.2 Dependence on renal dialysis; R07.9 Chest pain, unspecified

== ENCOUNTER 2017-12-12 16:16 | Observation (INO) | payer OTHER ==
[2017-12-12 16:17] VITALS: PULSE 66; BMI 18.8
--- NOTE | 2017-12-12 18:08 | RAD ---
PROCEDURE: CHEST RADIOGRAPH, 1 VIEW HISTORY: chest pain COMPARISON: 12/07/2017 FINDINGS: LUNGS: Clear. PLEURA: No pneumothorax or pleural fluid seen. CARDIOVASCULAR: Cardiomegaly, pulmonary vascular congestion. Venous access catheter in stable, satisfactory position. OSSEOUS STRUCTURES: No significant abnormalities. VISUALIZED UPPER ABDOMEN: Normal. OTHER FINDINGS: None. IMPRESSION: Cardiomegaly/ CHF similar in degree/ severity compared to the prior study. No new or acute interval changes identified.
--- NOTE | 2017-12-12 18:17 | C.PDOC ---
History Of Present Illness 37 y/o male well known to ED presents with complaints of chest pain with associated sob for 2 days and states he missed dialysis today. Patient denies fever, cough, nausea, vomiting or any other complaints at this time. Chief Complaint (Nursing): Chest Pain History Per: Patient History/Exam Limitations: no limitations Onset/Duration Of Symptoms: Days Current Symptoms Are (Timing): Still Present Past Medical History Reviewed: Historical Data, Nursing Documentation, Vital Signs Vital Signs: Last Vital Signs Temp 98.8 F 12/12/17 16:29 Pulse 89 12/12/17 18:17 Resp 18 12/12/17 18:17 BP 216/83 H 12/12/17 18:17 Pulse Ox 100 12/12/17 18:55 - Medical History PMH: Alzheimer's Disease, Anemia, Anxiety, Arthritis, Asthma, Atrial Fibrillation, Bronchitis, CAD, Cardia Arrhythmia, CHF, COPD, CVA, Depression, Diabetes, Deep Vein Thrombosis, Gastritis, Gastrointestinal Ulcer, Gall Bladder Disease, HTN, Hypercholesterolemia, Hypothyroidism, Pneumonia, End Stage Renal Disease, Chronic Kidney Disease, Seizures Surgical History: CABG (12/2009), Cholecystectomy (2011), Coronary Stent - [facility] Procedures (11/15/17) ABDOMINAL WALL SINOGRAM (12/31/13) C.A.T. SCAN OF ABDOMEN (10/31/13) CENTRAL VENOUS CATHETER PLACEMENT WITH GUIDANCE (02/10/15) CHANGE OTHER DEVICE IN TRUNK SUBCU/FASCIA, ELECTRICIAN SHOP APPROACH (06/01/17) DILATE R ANT TIB ART W DRUG-ELUT INTRALUM, PERC (08/12/15) DILATION OF LEFT FEMORAL ARTERY, PERCUTANEOUS APPROACH (07/04/16) DILATION OF RIGHT FEMORAL ARTERY, PERCUTANEOUS APPROACH (08/12/15) DILATION OF RIGHT POPLITEAL ARTERY, PERCUTANEOUS APPROACH (08/12/15) DX ULTRASOUND-HEART (01/05/13) ENTERAL INFUSION OF CONCENTRATED NUT. SUBSTANCES (06/28/13) EXCIS DEBRIDE OF WOUND, INFECT, OR BURN (08/03/14) EXCISION OF STOMACH, ENDO, DIAGN (03/03/17) EXTIRPATION OF MATTER FROM L FEM ART, PERC APPROACH (07/04/16) EXTIRPATION OF MATTER FROM R FEM ART, PERC APPROACH (08/12/15) EXTIRPATION OF MATTER FROM R POPL ART, PERC APPROACH (08/12/15) FLUOROSCOPY OF L LOW EXTREM ART USING L OSM CONTRAST (08/12/15) FLUOROSCOPY OF R LOW EXTREM ART USING L OSM CONTRAST (08/12/15) FLUOROSCOPY OF RIGHT JUGULAR VEINS, GUIDANCE (06/01/17) FREE SKIN GRAFT NEC (08/03/14) HEAD SOFT TISS X-RAY NEC (04/15/13) HEMODIALYSIS (04/28/15) INCIS W REM OF FORIEGN BODY OR DEV FROM SKIN & SUBCUT TISSUE (08/08/13) INSERT INFUSION DEV IN R INT JUGULAR VEIN, PERC (06/01/17) INSERTION OF INFUSION DEV INTO R SUBCLAV VEIN, PERC APPROACH (01/19/16) INSERTION OF INFUSION DEV INTO SUP VENA CAVA, PERC APPROACH (05/17/17) INSPECTION OF UPPER INTESTINAL TRACT, ENDO (03/03/17) INTRODUCE OF OTH THROMBOLYTIC INTO PERIPH ART, PERC APPROACH (08/12/15) LAPAROSCOPIC CHOLECYSTECTOMY (09/21/13) LOC EXC LES METATAR/TAR (06/01/14) PACKED CELL TRANSFUSION (06/01/14) PERCUTAN LIVER ASPIRAT (12/31/13) PERFORMANCE OF URINARY FILTRATION, MULTIPLE (05/17/17) PERFORMANCE OF URINARY FILTRATION, SINGLE (12/18/16) SKIN & SUBQ INCISION NEC (10/24/14) TETANUS TOXOID ADMINIST (06/13/14) TRANSFUSE NONAUT RED BLOOD CELLS IN PERIPH VEIN, PERC (04/09/17) ULTRASONOGRAPHY OF RIGHT AND LEFT HEART (04/09/17) ULTRASONOGRAPHY OF SUPERIOR VENA CAVA, GUIDANCE (02/20/17) VENOUS CATHETERIZATION FOR RENAL DIALYSIS (08/08/13) VENOUS CATHETERIZATION NEC (04/30/13) Family History: States: No Known Family Hx - Social History Hx Tobacco Use: No Hx Alcohol Use: No Hx Substance Use: No - Immunization History Hx Tetanus Toxoid Vaccination: Yes Hx Influenza Vaccination: Yes Hx Pneumococcal Vaccination: Yes Review Of Systems Constitutional: Negative for: Fever, Chills Cardiovascular: Positive for: Chest Pain Respiratory: Negative for: Cough, Shortness of Breath Gastrointestinal: Negative for: Nausea, Vomiting Skin: Negative for: Rash Physical Exam - Physical Exam Appears: Non-toxic, No Acute Distress Skin: Warm, Dry, No Rash Head: Atraumatic, Normacephalic Oral Mucosa: Moist Neck: Normal ROM, Supple Cardiovascular: Rhythm Regular Respiratory: Rales (at bases bilaterally), No Rhonchi, No Wheezing Gastrointestinal/Abdominal: Bowel Sounds, Soft, No Tenderness, No Guarding, No Rebound Extremity: Other (Bilateral BKA) Neurological/Psych: Oriented x3, Normal Speech, Normal Cognition ED Course And Treatment - Laboratory Results Result Diagrams: 12/12/17 18:22 18 18:22 ECG: Interpreted By Me, Viewed By Me ECG Rhythm: Sinus Rhythm Interpretation Of ECG: NSR with Prolonged QT Rate From EC (BPM) O2 Sat by Pulse Oximetry: 100 (RA) Progress Note: Spoke to pt to be admitted to telemetry under her service. Disposition - Disposition Disposition Time: 18:45 Condition: STABLE Forms: [facility] (Russian) - Clinical Impression Clinical Impression: Hypertension, ESRD (end stage renal disease) - Scribe Statement The provider has reviewed the documentation as recorded by the Scribe Esdras Tsai All medical record entries made by the Scribe were at my direction and personally dictated by me. I have reviewed the chart and agree that the record accurately reflects my personal performance of the history, physical exam, medical decision making, and the department course for this patient. I have also personally directed, reviewed, and agree with the discharge instructions and disposition.
[2017-12-12 18:25] LABS: BASO # 0.1 K/uL (0.0-0.2); BASO % 0.8 % (0.0-2.0); EOS # 0.3 K/uL (0.0-0.7); EOS % 2.9 % (0.0-4.0); HEMOGLOBIN 12.1 g/dL (12.0-18.0); LYMPH % 16.9 % (20.0-40.0); MEAN CORPUSCULAR HEMOGLOBIN 28.7 pg (27.0-31.0); MEAN CORPUSCULAR HGB CONC 31.8 g/dL (33.0-37.0); MEAN PLATELET VOLUME 9.3 fL (7.2-11.7); MONO # 0.5 K/uL (0.0-0.8); NEUT % 75.4 % (50.0-75.0); RBC 4.22 Mil/uL (4.40-5.90); RED CELL DISTRIBUTION WIDTH 17.7 % (11.5-14.5)
[2017-12-12 18:32] LABS: MEAN CELL VOLUME 90.4 fL (80.0-94.0)
[2017-12-12 18:45] LABS: ALB/GLOB RATIO 1.1 (1.0-2.1); ALBUMIN 4.2 g/dL (3.5-5.0); CALCIUM 7.9 mg/dl (8.6-10.4)
[2017-12-12 18:53] LABS: TROPONIN I 0.102 ng/mL (0.00-0.120)
[2017-12-12] MEDS ORDERED: Ergocalciferol 50,000 Intl Units Cap PO SCH (20:30)
[2017-12-12] MEDS ORDERED: HYDROmorphone 1 mg/ml ISec IVP PRN (20:44)
[2017-12-12] MEDS: (Novolin R) Insulin Human Regular 100 units/ml vial SC SCH (21:21)
[2017-12-12] MEDS: (Lantus) Insulin Glargine, Recombinant SC SCH (21:38)
[2017-12-13] MEDS: Albuterol-Ipratrop 3 mg / 0.5 (3 ml) UD IH SCH ×6 (00:44→19:49)
[2017-12-13] MEDS: (Novolin R) Insulin Human Regular 100 units/ml vial SC SCH ×4 (07:40→22:40)
[2017-12-13 08:06] LABS: CALCIUM 8.5 mg/dl (8.6-10.4)
[2017-12-13] MEDS: Ranolazine 500 mg Extended Release Tablets PO SCH ×2 (10:00→18:43)
[2017-12-13] MEDS ORDERED: LIDOCAINE TOP SCH (10:00)
--- NOTE | 2017-12-13 11:49 | CP.PCM.HP ---
History of Present Illness - History of Present Illness History of Present Illness: missed dialysis k v hi chest pain sob Present on Admission - Present on Admission Any Indicators Present on Admission: No Past Patient History - Infectious Disease Hx of Infectious Diseases: None - Tetanus Immunizations Tetanus Immunization: >10 years Ago - Past Medical History & Family History Past Medical History?: Yes - Past Social History Smoking Status: Never Smoked - CARDIAC Hx Atrial Fibrillation: Yes Hx Cardia Arrhythmia: Yes Hx Congestive Heart Failure: Yes Hx Hypercholesterolemia: Yes Hx Hypertension: Yes - PULMONARY Hx Asthma: Yes Hx Bronchitis: Yes Hx Chronic Obstructive Pulmonary Disease (COPD): Yes Hx Pneumonia: Yes - NEUROLOGICAL Hx Alzheimer's Disease: Yes Hx Seizures: Yes - HEENT Hx HEENT Problems: Yes Hx Blind: Yes (legally blind) Hx Cataracts: Yes - RENAL Hx Chronic Kidney Disease: Yes - ENDOCRINE/METABOLIC Hx Hypothyroidism: Yes - HEMATOLOGICAL/ONCOLOGICAL Hx Anemia: Yes - INTEGUMENTARY Hx Dermatological Problems: No - MUSCULOSKELETAL/RHEUMATOLOGICAL Hx Arthritis: Yes - GASTROINTESTINAL Hx Gall Bladder Disease: Yes Hx Gastritis: Yes - GENITOURINARY/GYNECOLOGICAL Hx Sexually Transmitted Disorders: No - PSYCHIATRIC Hx Anxiety: Yes Hx Depression: Yes Hx Substance Use: No - SURGICAL HISTORY Hx Cholecystectomy: Yes (2011) 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/2009) Hx Coronary Stent: Yes - ANESTHESIA Hx Anesthesia: Yes Hx Anesthesia Reactions: No Hx Malignant Hyperthermia: No Meds Allergies/Adverse Reactions: Allergies Allergy/AdvReac Type Severity Reaction Status Date / Time acetaminophen [From Percocet] Allergy RASH Verified 12/12/17 16:35 atenolol Allergy RASH Verified 12/12/17 16:35 digoxin Allergy RASH Verified 12/12/17 16:35 milk Allergy ITCHING Verified 12/12/17 16:35 morphine Allergy RASH Verified 12/12/17 16:35 oxycodone HCl [From Percocet] Allergy RASH Verified 12/12/17 16:35 Physical Exam - Constitutional Appears: Non-toxic - Head Exam Head Exam: ATRAUMATIC - Eye Exam Eye Exam: Conjunctival injection - ENT Exam ENT Exam: Mucous Membranes Moist - Neck Exam Neck exam: Positive for: Full Rom - Respiratory Exam Respiratory Exam: Clear to Auscultation Bilateral - Cardiovascular Exam Cardiovascular Exam: REGULAR RHYTHM - GI/Abdominal Exam GI & Abdominal Exam: Normal Bowel Sounds - Rectal Exam Rectal Exam: NORMAL INSPECTION - Extremities Exam Additional comments: bilatewral amputation - Neurological Exam Neurological exam: Alert, Oriented x3 - Psychiatric Exam Psychiatric exam: Normal Affect - Skin Skin Exam: Normal Color Results - Vital Signs Recent Vital Signs: Last Vital Signs Temp 98 F 12/13/17 09:40 Pulse 79 12/13/17 09:40 Resp 18 12/13/17 09:40 BP 170/86 H 12/13/17 10:10 Pulse Ox 100 12/13/17 09:40 - Labs Result Diagrams: 12/12/17 18:22 12/13/17 07:06 Labs: Laboratory Results - last 24 hr 12/12/17 12/12/17 12/12/17 17:07 18:22 18:22 WBC 12.0 H RBC 4.22 L Hgb 12.1 Hct 38.1 MCV 90.4 D MCH 28.7 MCHC 31.8 L RDW 17.7 H Plt Count 201 MPV 9.3 Neut % (Auto) 75.4 H Lymph % (Auto) 16.9 L Bland % (Auto) 4.0 Eos % (Auto) 2.9 Baso % (Auto) 0.8 Neut # (Auto) 9.0 H Lymph # (Auto) 2.0 Bland # (Auto) 0.5 Eos # (Auto) 0.3 Baso # (Auto) 0.1 Sodium 138 Potassium 6.3 H* D Chloride 95 L Carbon Dioxide 22 Anion Gap 27 H BUN 65 H Creatinine 7.0 H Est GFR ( Amer) 11 Est GFR (Non-Af Amer) 9 POC Glucose (mg/dL) 198 H Random Glucose 242 H Calcium 7.9 L Total Bilirubin 1.0 AST 33 ALT 8 L D Alkaline Phosphatase 185 H D Troponin I 0.1020 Total Protein 8.1 Albumin 4.2 Globulin 3.9 Albumin/Globulin Ratio 1.1 12/12/17 12/13/17 12/13/17 21:00 06:27 07:06 WBC RBC Hgb Hct MCV MCH MCHC RDW Plt Count MPV Neut % (Auto) Lymph % (Auto) Bland % (Auto) Eos % (Auto) Baso % (Auto) Neut # (Auto) Lymph # (Auto) Bland # (Auto) Eos # (Auto) Baso # (Auto) Sodium 139 Potassium 4.3 Chloride 97 L Carbon Dioxide 27 Anion Gap 19 BUN 40 H Creatinine 5.1 H Est GFR ( Amer) 16 Est GFR (Non-Af Amer) 13 POC Glucose (mg/dL) 220 H 127 H Random Glucose 121 H Calcium 8.5 L Total Bilirubin AST ALT Alkaline Phosphatase Troponin I Total Protein Albumin Globulin Albumin/Globulin Ratio 12/13/17 11:03 WBC RBC Hgb Hct MCV MCH MCHC RDW Plt Count MPV Neut % (Auto) Lymph % (Auto) Bland % (Auto) Eos % (Auto) Baso % (Auto) Neut # (Auto) Lymph # (Auto) Bland # (Auto) Eos # (Auto) Baso # (Auto) Sodium Potassium Chloride Carbon Dioxide Anion Gap BUN Creatinine Est GFR ( Amer) Est GFR (Non-Af Amer) POC Glucose (mg/dL) 167 H Random Glucose Calcium Total Bilirubin AST ALT Alkaline Phosphatase Troponin I Total Protein Albumin Globulin Albumin/Globulin Ratio Assessment & Plan - Assessment and Plan (Free Text) Assessment: hyper kale[place]ia esrf dm copd back pain Plan: received dialysis yesterday and today improved - Date & Time Date: 12/13/17 Time: 11:49
[2017-12-13] MEDS: Pantoprazole 20 mg EC Tab PO SCH (13:21)
[2017-12-13] MEDS: Multivitamin Vitamin B Complex (Nephro-Vite) Tab PO SCH (13:24)
[2017-12-13] MEDS ORDERED: HYDROmorphone 0.5 mg/0.5 ml ISec IVP ONE (13:45)
--- NOTE | 2017-12-13 14:51 | CP.PCM.CON ---
History of Present Illness - History of Present Illness History of Present Illness: pt seen and examined labs vitals reviewed A/p ESRD, missed HD hyperkalemia and fluid overload chest pain got emergent dialysis last night for 2 hrs and extra dialysis session today next routine HD tomorrow per TTS schedule Past Patient History - Infectious Disease Hx of Infectious Diseases: None - Tetanus Immunizations Tetanus Immunization: >10 years Ago - Past Medical History & Family History Past Medical History?: Yes - Past Social History Smoking Status: Never Smoked - CARDIAC Hx Atrial Fibrillation: Yes Hx Cardia Arrhythmia: Yes Hx Congestive Heart Failure: Yes Hx Hypercholesterolemia: Yes Hx Hypertension: Yes - PULMONARY Hx Asthma: Yes Hx Bronchitis: Yes Hx Chronic Obstructive Pulmonary Disease (COPD): Yes Hx Pneumonia: Yes - NEUROLOGICAL Hx Alzheimer's Disease: Yes Hx Seizures: Yes - HEENT Hx HEENT Problems: Yes Hx Blind: Yes (legally blind) Hx Cataracts: Yes - RENAL Hx Chronic Kidney Disease: Yes - ENDOCRINE/METABOLIC Hx Hypothyroidism: Yes - HEMATOLOGICAL/ONCOLOGICAL Hx Anemia: Yes - INTEGUMENTARY Hx Dermatological Problems: No - MUSCULOSKELETAL/RHEUMATOLOGICAL Hx Arthritis: Yes - GASTROINTESTINAL Hx Gall Bladder Disease: Yes Hx Gastritis: Yes - GENITOURINARY/GYNECOLOGICAL Hx Sexually Transmitted Disorders: No - PSYCHIATRIC Hx Anxiety: Yes Hx Depression: Yes Hx Substance Use: No - SURGICAL HISTORY Hx Cholecystectomy: Yes (2011) 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/2009) Hx Coronary Stent: Yes - ANESTHESIA Hx Anesthesia: Yes Hx Anesthesia Reactions: No Hx Malignant Hyperthermia: No Meds Home Medications: Home Medication List Medication Instructions Recorded Confirmed Type HYDROmorphone [Dilaudid 2 mg Tab] 2 mg PO Q6H PRN #10 tab 12/13/17 Rx Allergies/Adverse Reactions: Allergies Allergy/AdvReac Type Severity Reaction Status Date / Time acetaminophen [From Percocet] Allergy RASH Verified 12/12/17 16:35 atenolol Allergy RASH Verified 12/12/17 16:35 digoxin Allergy RASH Verified 12/12/17 16:35 milk Allergy ITCHING Verified 12/12/17 16:35 morphine Allergy RASH Verified 12/12/17 16:35 oxycodone HCl [From Percocet] Allergy RASH Verified 12/12/17 16:35 - Medications Medications: Current Medications Albuterol/Ipratropium (Duoneb 3 Mg/0.5 Mg (3 Ml) Ud) 3 ml IH Q4 [facility] Last Admin: 12/13/17 11:16 Dose: Not Given Amiodarone HCl (Cordarone) 200 mg PO DAILY [facility] Last Admin: 12/13/17 13:19 Dose: 200 mg Amlodipine Besylate (Norvasc) 10 mg PO DAILY [facility] Last Admin: 12/13/17 13:07 Dose: 10 mg Aspirin (Aspirin Chewable) 81 mg PO DAILY [facility] Last Admin: 12/13/17 13:19 Dose: 81 mg Calcium Carbonate (Oscal) 500 mg PO BID [facility] Last Admin: 12/13/17 13:21 Dose: 500 mg Carvedilol (Coreg) 25 mg PO BID [facility] Last Admin: 12/13/17 10:00 Dose: Not Given Docusate Sodium (Colace) 100 mg PO DAILY [facility] Last Admin: 12/13/17 13:24 Dose: 100 mg Ergocalciferol (Drisdol 50,000 Intl Units Cap) 1 cap PO Q7D [facility] Last Admin: 12/12/17 21:37 Dose: 1 cap Heparin Sodium (Porcine) (Heparin) 5,000 units SC Q12 [facility] Last Admin: 12/13/17 10:00 Dose: Not Given Home Med (Lidocaine.) 1 applic TOP BID [facility] Hydromorphone HCl (Dilaudid) 2 mg PO Q6H PRN PRN Reason: Pain, severe (8-10) Insulin Glargine (Lantus) 10 unit SC HS [facility] Last Admin: 12/12/17 21:38 Dose: 10 units Insulin Human Regular (Novolin R) 0 unit SC ACHS [facility] PRN Reason: Protocol Last Admin: 12/13/17 11:30 Dose: Not Given Isosorbide Mononitrate (Imdur) 60 mg PO DAILY [facility] Last Admin: 12/13/17 13:07 Dose: 60 mg Levetiracetam (Keppra) 500 mg PO BID [facility] Last Admin: 12/13/17 13:10 Dose: 500 mg Montelukast Sodium (Singulair) 10 mg PO HS [facility] Pantoprazole Sodium (Protonix Ec Tab) 20 mg PO DAILY [facility] Last Admin: 12/13/17 13:21 Dose: 20 mg Ranolazine (Ranexa) 500 mg PO BID [facility] Last Admin: 12/13/17 10:00 Dose: Not Given Rosuvastatin Calcium (Crestor) 10 mg PO HS [facility] Last Admin: 12/12/17 21:37 Dose: 10 mg Sertraline HCl (Zoloft) 50 mg PO DAILY [facility] Last Admin: 12/13/17 13:07 Dose: 50 mg Valproate Sodium (Depakene Cap) 250 mg PO QID [facility] Last Admin: 12/13/17 13:20 Dose: 250 mg Vitamin B Complex/Vit C/Folic Acid (Nephro-Courtney) 1 tab PO 0800 [facility] Last Admin: 12/13/17 13:24 Dose: 1 tab Results - Vital Signs Recent Vital Signs: Last Vital Signs Temp 98 F 12/13/17 12:25 Pulse 84 12/13/17 12:25 Resp 16 12/13/17 12:25 BP 158/74 H 12/13/17 12:25 Pulse Ox 99 12/13/17 12:25 - Labs Result Diagrams: 12/12/17 18:22 12/13/17 07:06 Labs: Laboratory Results - last 24 hr 12/12/17 12/12/17 12/12/17 17:07 18:22 18:22 WBC 12.0 H RBC 4.22 L Hgb 12.1 Hct 38.1 MCV 90.4 D MCH 28.7 MCHC 31.8 L RDW 17.7 H Plt Count 201 MPV 9.3 Neut % (Auto) 75.4 H Lymph % (Auto) 16.9 L [place] % (Auto) 4.0 Eos % (Auto) 2.9 Baso % (Auto) 0.8 Neut # (Auto) 9.0 H Lymph # (Auto) 2.0 [place] # (Auto) 0.5 Eos # (Auto) 0.3 Baso # (Auto) 0.1 Sodium 138 Potassium 6.3 H* D Chloride 95 L Carbon Dioxide 22 Anion Gap 27 H BUN 65 H Creatinine 7.0 H Est GFR ( Amer) 11 Est GFR (Non-Af Amer) 9 POC Glucose (mg/dL) 198 H Random Glucose 242 H Calcium 7.9 L Total Bilirubin 1.0 AST 33 ALT 8 L D Alkaline Phosphatase 185 H D Troponin I 0.1020 Total Protein 8.1 Albumin 4.2 Globulin 3.9 Albumin/Globulin Ratio 1.1 12/12/17 12/13/17 12/13/17 21:00 06:27 07:06 WBC RBC Hgb Hct MCV MCH MCHC RDW Plt Count MPV Neut % (Auto) Lymph % (Auto) [place] % (Auto) Eos % (Auto) Baso % (Auto) Neut # (Auto) Lymph # (Auto) [place] # (Auto) Eos # (Auto) Baso # (Auto) Sodium 139 Potassium 4.3 Chloride 97 L Carbon Dioxide 27 Anion Gap 19 BUN 40 H Creatinine 5.1 H Est GFR ( Amer) 16 Est GFR (Non-Af Amer) 13 POC Glucose (mg/dL) 220 H 127 H Random Glucose 121 H Calcium 8.5 L Total Bilirubin AST ALT Alkaline Phosphatase Troponin I Total Protein Albumin Globulin Albumin/Globulin Ratio 12/13/17 11:03 WBC RBC Hgb Hct MCV MCH MCHC RDW Plt Count MPV Neut % (Auto) Lymph % (Auto) [place] % (Auto) Eos % (Auto) Baso % (Auto) Neut # (Auto) Lymph # (Auto) [place] # (Auto) Eos # (Auto) Baso # (Auto) Sodium Potassium Chloride Carbon Dioxide Anion Gap BUN Creatinine Est GFR ( Amer) Est GFR (Non-Af Amer) POC Glucose (mg/dL) 167 H Random Glucose Calcium Total Bilirubin AST ALT Alkaline Phosphatase Troponin I Total Protein Albumin Globulin Albumin/Globulin Ratio
[2017-12-13] MEDS ORDERED: Lidocaine 5% Oint(35 gm) TOP PRN (16:56)
--- NOTE | 2017-12-13 17:54 | CP.PCM.PN ---
Subjective - Date & Time of Evaluation Date of Evaluation: 12/13/17 Time of Evaluation: 17:55 - Subjective Subjective: Alert, awake, no sob or chest pains, NAD. Objective - Vital Signs/Intake and Output Vital Signs (last 24 hours): Temp Pulse Resp BP Pulse Ox 97.9 F 85 20 152/84 H 98 12/13/17 15:23 12/13/17 15:23 12/13/17 15:23 12/13/17 15:23 12/13/17 15:23 Intake and Output: 12/13/17 12/13/17 06:59 18:59 Intake Total 100 Balance 100 - Medications Medications: Current Medications Albuterol/Ipratropium (Duoneb 3 Mg/0.5 Mg (3 Ml) Ud) 3 ml IH Q4 [facility] Last Admin: 12/13/17 16:00 Dose: 3 ml Amiodarone HCl (Cordarone) 200 mg PO DAILY [facility] Last Admin: 12/13/17 13:19 Dose: 200 mg Amlodipine Besylate (Norvasc) 10 mg PO DAILY [facility] Last Admin: 12/13/17 13:07 Dose: 10 mg Aspirin (Aspirin Chewable) 81 mg PO DAILY [facility] Last Admin: 12/13/17 13:19 Dose: 81 mg Calcium Carbonate (Oscal) 500 mg PO BID [facility] Last Admin: 12/13/17 13:21 Dose: 500 mg Carvedilol (Coreg) 25 mg PO BID [facility] Last Admin: 12/13/17 10:00 Dose: Not Given Docusate Sodium (Colace) 100 mg PO DAILY [facility] Last Admin: 12/13/17 13:24 Dose: 100 mg Ergocalciferol (Drisdol 50,000 Intl Units Cap) 1 cap PO Q7D [facility] Last Admin: 12/12/17 21:37 Dose: 1 cap Heparin Sodium (Porcine) (Heparin) 5,000 units SC Q12 [facility] Last Admin: 12/13/17 10:00 Dose: Not Given Hydromorphone HCl (Dilaudid) 2 mg PO Q6H PRN PRN Reason: Pain, severe (8-10) Insulin Glargine (Lantus) 10 unit SC HS [facility] Last Admin: 12/12/17 21:38 Dose: 10 units Insulin Human Regular (Novolin R) 0 unit SC ACHS [facility] PRN Reason: Protocol Last Admin: 12/13/17 11:30 Dose: Not Given Isosorbide Mononitrate (Imdur) 60 mg PO DAILY [facility] Last Admin: 12/13/17 13:07 Dose: 60 mg Levetiracetam (Keppra) 500 mg PO BID [facility] Last Admin: 12/13/17 13:10 Dose: 500 mg Lidocaine (Lidocaine 5%) 0 gm TOP BID PRN PRN Reason: pain Montelukast Sodium (Singulair) 10 mg PO [facility] Pantoprazole Sodium (Protonix Ec Tab) 20 mg PO DAILY [facility] Last Admin: 12/13/17 13:21 Dose: 20 mg Ranolazine (Ranexa) 500 mg PO BID [facility] Last Admin: 12/13/17 10:00 Dose: Not Given Rosuvastatin Calcium (Crestor) 10 mg PO HS [facility] Last Admin: 12/12/17 21:37 Dose: 10 mg Sertraline HCl (Zoloft) 50 mg PO DAILY [facility] Last Admin: 12/13/17 13:07 Dose: 50 mg Valproate Sodium (Depakene Cap) 250 mg PO QID [facility] Last Admin: 12/13/17 13:20 Dose: 250 mg Vitamin B Complex/Vit C/Folic Acid (Nephro-Courtney) 1 tab PO 0800 [facility] Last Admin: 12/13/17 13:24 Dose: 1 tab - Labs Labs: 12/12/17 18:22 12/13/17 07:06 Assessment and Plan - Assessment and Plan (Free Text) Assessment: Patient admitted with SOB, fluid overload, seen and examined after HD today. No sob or chest pains now, no distress noted. Plan to discharge home as per DR Li today, but he wants to stay until the next dialysis in the morning and to be discharged. Arrangements for discharge to be made in the am.
[2017-12-13] MEDS: (Lantus) Insulin Glargine, Recombinant SC SCH (21:52)
[2017-12-14] MEDS: Albuterol-Ipratrop 3 mg / 0.5 (3 ml) UD IH SCH ×5 (01:06→19:39)
[2017-12-14] MEDS: (Novolin R) Insulin Human Regular 100 units/ml vial SC SCH ×2 (08:00→16:53)
[2017-12-14] MEDS: Ranolazine 500 mg Extended Release Tablets PO SCH ×2 (10:00→18:53)
[2017-12-14] MEDS: Pantoprazole 20 mg EC Tab PO SCH (10:00)
--- NOTE | 2017-12-14 12:26 | CP.PCM.PN ---
Subjective - Date & Time of Evaluation Date of Evaluation: 12/14/17 Time of Evaluation: 12:24 - Subjective Subjective: PT SEEN IN HD AND TOLERATING WELL. NO ACUTE COMPLAINTS. IN AGREEMENT FOR DISCHARGE HOME ORIGINALLY PLANNED YESTERDAY FOR THIS MORNING. SW TO ARRANGE TRANSPORTATION HOME. NO FURTHER ORDERS. AL OTHER D/C PAPERWORK AND INSTRUCTIONS DONE YESTERDAY BY REUBEN JEONG. Objective - Vital Signs/Intake and Output Vital Signs (last 24 hours): Temp Pulse Resp BP Pulse Ox 97.3 F L 61 19 95/45 L 100 12/14/17 09:45 12/14/17 09:45 12/14/17 09:45 12/14/17 12:15 12/14/17 09:45 - Medications Medications: Current Medications Albuterol/Ipratropium (Duoneb 3 Mg/0.5 Mg (3 Ml) Ud) 3 ml IH Q4 [facility] Last Admin: 12/14/17 07:21 Dose: Not Given Amiodarone HCl (Cordarone) 200 mg PO DAILY [facility] Last Admin: 12/13/17 13:19 Dose: 200 mg Amlodipine Besylate (Norvasc) 10 mg PO DAILY [facility] Last Admin: 12/13/17 13:07 Dose: 10 mg Aspirin (Aspirin Chewable) 81 mg PO DAILY [facility] Last Admin: 12/13/17 13:19 Dose: 81 mg Calcium Carbonate (Oscal) 500 mg PO BID [facility] Last Admin: 12/13/17 18:42 Dose: 500 mg Carvedilol (Coreg) 25 mg PO BID [facility] Last Admin: 12/13/17 18:42 Dose: 25 mg Docusate Sodium (Colace) 100 mg PO DAILY [facility] Last Admin: 12/13/17 13:24 Dose: 100 mg Ergocalciferol (Drisdol 50,000 Intl Units Cap) 1 cap PO Q7D [facility] Last Admin: 12/12/17 21:37 Dose: 1 cap Heparin Sodium (Porcine) (Heparin) 5,000 units SC Q12 [facility] Last Admin: 12/13/17 21:52 Dose: 5,000 units Hydromorphone HCl (Dilaudid) 2 mg PO Q6H PRN PRN Reason: Pain, severe (8-10) Last Admin: 12/13/17 18:42 Dose: 2 mg Insulin Glargine (Lantus) 10 unit SC HS [facility] Last Admin: 12/13/17 21:52 Dose: 10 units Insulin Human Regular (Novolin R) [address] [facility] PRN Reason: Protocol Last Admin: 12/14/17 08:00 Dose: Not Given Isosorbide Mononitrate (Imdur) 60 mg PO DAILY [facility] Last Admin: 12/13/17 13:07 Dose: 60 mg Levetiracetam (Keppra) 500 mg PO BID [facility] Last Admin: 12/13/17 18:42 Dose: 500 mg Lidocaine (Lidocaine 5%) 0 gm TOP BID PRN PRN Reason: pain Montelukast Sodium (Singulair) 10 mg PO [facility] Last Admin: 12/13/17 21:52 Dose: 10 mg Pantoprazole Sodium (Protonix Ec Tab) 20 mg PO DAILY [facility] Last Admin: 12/13/17 13:21 Dose: 20 mg Ranolazine (Ranexa) 500 mg PO BID [facility] Last Admin: 12/13/17 18:43 Dose: 500 mg Rosuvastatin Calcium (Crestor) 10 mg PO [facility] Last Admin: 12/13/17 21:52 Dose: 10 mg Sertraline HCl (Zoloft) 50 mg PO DAILY [facility] Last Admin: 12/13/17 13:07 Dose: 50 mg Valproate Sodium (Depakene Cap) 250 mg PO QID [facility] Last Admin: 12/13/17 21:52 Dose: 250 mg Vitamin B Complex/Vit C/Folic Acid (Nephro-Courtney) 1 tab PO 0800 [facility] Last Admin: 12/13/17 13:24 Dose: 1 tab - Labs Labs: 12/12/17 18:22 12/13/17 07:06
--- NOTE | 2017-12-14 12:57 | CP.PCM.PN ---
Subjective - Date & Time of Evaluation Date of Evaluation: 12/14/17 Time of Evaluation: 12:55 - Subjective Subjective: having dialysis feels beter no chest pain no sob Objective - Vital Signs/Intake and Output Vital Signs (last 24 hours): Temp Pulse Resp BP Pulse Ox 97.3 F L 61 19 95/45 L 100 12/14/17 09:45 12/14/17 09:45 12/14/17 09:45 12/14/17 12:15 12/14/17 09:45 - Medications Medications: Current Medications Albuterol/Ipratropium (Duoneb 3 Mg/0.5 Mg (3 Ml) Ud) 3 ml IH Q4 [facility] Last Admin: 12/14/17 07:21 Dose: Not Given Amiodarone HCl (Cordarone) 200 mg PO DAILY [facility] Last Admin: 12/14/17 10:00 Dose: Not Given Amlodipine Besylate (Norvasc) 10 mg PO DAILY [facility] Last Admin: 12/14/17 10:00 Dose: Not Given Aspirin (Aspirin Chewable) 81 mg PO DAILY [facility] Last Admin: 12/14/17 10:00 Dose: Not Given Calcium Carbonate (Oscal) 500 mg PO BID [facility] Last Admin: 12/14/17 10:00 Dose: Not Given Carvedilol (Coreg) 25 mg PO BID [facility] Last Admin: 12/14/17 10:00 Dose: Not Given Docusate Sodium (Colace) 100 mg PO DAILY [facility] Last Admin: 12/14/17 10:00 Dose: Not Given Ergocalciferol (Drisdol 50,000 Intl Units Cap) 1 cap PO Q7D [facility] Last Admin: 12/12/17 21:37 Dose: 1 cap Heparin Sodium (Porcine) (Heparin) 5,000 units SC Q12 [facility] Last Admin: 12/14/17 10:00 Dose: Not Given Hydromorphone HCl (Dilaudid) 2 mg PO Q6H PRN PRN Reason: Pain, severe (8-10) Last Admin: 12/13/17 18:42 Dose: 2 mg Insulin Glargine (Lantus) 10 unit SC HS [facility] Last Admin: 12/13/17 21:52 Dose: 10 units Insulin Human Regular (Novolin R) 0 unit SC ACHS [facility] PRN Reason: Protocol Last Admin: 12/14/17 08:00 Dose: Not Given Isosorbide Mononitrate (Imdur) 60 mg PO DAILY [facility] Last Admin: 12/14/17 10:00 Dose: Not Given Levetiracetam (Keppra) 500 mg PO BID [facility] Last Admin: 12/14/17 10:00 Dose: Not Given Lidocaine (Lidocaine 5%) 0 gm TOP BID PRN PRN Reason: pain Montelukast Sodium (Singulair) 10 mg PO [facility] Last Admin: 12/13/17 21:52 Dose: 10 mg Pantoprazole Sodium (Protonix Ec Tab) 20 mg PO DAILY [facility] Last Admin: 12/14/17 10:00 Dose: Not Given Ranolazine (Ranexa) 500 mg PO BID [facility] Last Admin: 12/14/17 10:00 Dose: Not Given Rosuvastatin Calcium (Crestor) 10 mg PO HS [facility] Last Admin: 12/13/17 21:52 Dose: 10 mg Sertraline HCl (Zoloft) 50 mg PO DAILY [facility] Last Admin: 12/14/17 10:00 Dose: Not Given Valproate Sodium (Depakene Cap) 250 mg PO QID [facility] Last Admin: 12/14/17 10:00 Dose: Not Given Vitamin B Complex/Vit C/Folic Acid (Nephro-Courtney) 1 tab PO 0800 [facility] Last Admin: 12/13/17 13:24 Dose: 1 tab - Labs Labs: 12/12/17 18:22 12/13/17 07:06 - Constitutional Appears: Well - Head Exam Head Exam: ATRAUMATIC - Eye Exam Eye Exam: Conjunctival injection - ENT Exam ENT Exam: Mucous Membranes Moist - Neck Exam Neck Exam: Full ROM - Respiratory Exam Respiratory Exam: Clear to Ausculation Bilateral - Cardiovascular Exam Cardiovascular Exam: REGULAR RHYTHM - GI/Abdominal Exam GI & Abdominal Exam: Normal Bowel Sounds - Back Exam Back Exam: NORMAL INSPECTION - Neurological Exam Neurological Exam: Alert, Oriented x3 - Psychiatric Exam Psychiatric exam: Normal Affect - Skin Skin Exam: Pallor Assessment and Plan - Assessment and Plan (Free Text) Assessment: s/p hyperkaleamia s/p chest pain dm esrf aneamia Plan: will d/c today cont same treatment
[2017-12-14] MEDS: Multivitamin Vitamin B Complex (Nephro-Vite) Tab PO SCH (14:31)
[2017-12-14 16:18] VITALS: BP 101/60; PULSE 73; RESP 18; TEMP 97.5; O2SAT 99
--- NOTE | 2017-12-15 10:47 | CARD ---
APPROVED REPORT EKG Measurement Heart [id number] <Conclusion> Normal sinus rhythm Possible Left atrial enlargement Incomplete left bundle branch block Left ventricular hypertrophy with repolarization abnormality Prolonged QT Abnormal ECG
== END 2017-12-14 20:40 | disposition home or self-care (01) ==
LOC: C.ER 16:16 → C.6T 18:55
PROVIDERS: ADMIT Internal Medicine; ATTEND Internal Medicine
DX: E87.5 Hyperkalemia (principal); N18.6 End stage renal disease; J44.9 Chronic obstructive pulmonary disease, unspecified; E11.22 Type 2 diabetes mellitus with diabetic chronic kidney disease; M54.9 Dorsalgia, unspecified; Z91.15 Patient's noncompliance with renal dialysis; Z99.2 Dependence on renal dialysis; Z87.11 Personal history of peptic ulcer disease; Z86.73 Personal history of transient ischemic attack (TIA), and cerebral infarction without residual deficits; I50.9 Heart failure, unspecified; I13.2 Hypertensive heart and chronic kidney disease with heart failure and with stage 5 chronic kidney disease, or end stage renal disease; I48.91 Unspecified atrial fibrillation; I25.10 Atherosclerotic heart disease of native coronary artery without angina pectoris; F02.80 Dementia in other diseases classified elsewhere, unspecified severity, without behavioral disturbance, psychotic disturbance, mood disturbance, and anxiety; G30.9 Alzheimer's disease, unspecified; E78.00 Pure hypercholesterolemia, unspecified; E03.9 Hypothyroidism, unspecified; R56.9 Unspecified convulsions; M19.90 Unspecified osteoarthritis, unspecified site; F41.9 Anxiety disorder, unspecified; F32.9 Major depressive disorder, single episode, unspecified; D64.9 Anemia, unspecified; Z86.718 Personal history of other venous thrombosis and embolism; Z95.5 Presence of coronary angioplasty implant and graft; Z95.1 Presence of aortocoronary bypass graft; H54.8 Legal blindness, as defined in USA; Z88.8 Allergy status to other drugs, medicaments and biological substances; Z91.011 Allergy to milk products; Z88.5 Allergy status to narcotic agent
CPT/HCPCS: 36415; 71045; 80048; 80053; 82948; 84484; 85025; 90970; 93005; 94640; 94760; 99285; G0257; G0378; J0360; J1170; J1644

== ENCOUNTER 2017-12-27 09:21 | Observation (INO) | payer OTHER ==
[2017-12-27 09:21] VITALS: PULSE 66; BMI 18.8
--- NOTE | 2017-12-27 10:03 | C.PDOC ---
History Of Present Illness 37 y/o male with history of End stage Renal disease (T, Thurs, Sat), COPD, CAD ( CABG), DM and HTN presents to ED with C/O SOB since 4am this morning. Patient states he missed dialysis secondary to "pain all over". Patient has history of prior visits with same complaints and denies fever, chest pain, cough, palpitations or any other complaints at this time. Time Seen by Provider: 12/27/17 09:36 Chief Complaint (Nursing): Shortness Of Breath History Per: Patient History/Exam Limitations: no limitations Onset/Duration Of Symptoms: Days Past Medical History Reviewed: Historical Data, Nursing Documentation, Vital Signs Vital Signs: Last Vital Signs Temp 97.5 F L 12/27/17 13:35 Pulse 78 12/27/17 13:35 Resp 16 12/27/17 13:35 BP 181/80 H 12/27/17 14:45 Pulse Ox 97 12/27/17 16:08 - Medical History PMH: Alzheimer's Disease, Anemia, Anxiety, Arthritis, Asthma, Atrial Fibrillation, Bronchitis, CAD, Cardia Arrhythmia, CHF, COPD, CVA, Depression, Diabetes, Deep Vein Thrombosis, Gastritis, Gastrointestinal Ulcer, Gall Bladder Disease, HTN, Hypercholesterolemia, Hypothyroidism, Pneumonia, End Stage Renal Disease, Chronic Kidney Disease, Seizures Surgical History: CABG (12/2009), Cholecystectomy (2011), Coronary Stent - [facility] (11/15/17) ABDOMINAL WALL SINOGRAM (12/31/13) C.A.T. SCAN OF ABDOMEN (10/31/13) CENTRAL VENOUS CATHETER PLACEMENT WITH GUIDANCE (02/10/15) CHANGE OTHER DEVICE IN TRUNK SUBCU/FASCIA, [employer] APPROACH (06/01/17) DILATE R ANT TIB ART W DRUG-ELUT INTRALUM, PERC (08/12/15) DILATION OF LEFT FEMORAL ARTERY, PERCUTANEOUS APPROACH (07/04/16) DILATION OF RIGHT FEMORAL ARTERY, PERCUTANEOUS APPROACH (08/12/15) DILATION OF RIGHT POPLITEAL ARTERY, PERCUTANEOUS APPROACH (08/12/15) DX ULTRASOUND-HEART (01/05/13) ENTERAL INFUSION OF CONCENTRATED NUT. SUBSTANCES (06/28/13) EXCIS DEBRIDE OF WOUND, INFECT, OR BURN (08/03/14) EXCISION OF STOMACH, ENDO, DIAGN (03/03/17) EXTIRPATION OF MATTER FROM L FEM ART, PERC APPROACH (07/04/16) EXTIRPATION OF MATTER FROM R FEM ART, PERC APPROACH (08/12/15) EXTIRPATION OF MATTER FROM R POPL ART, PERC APPROACH (08/12/15) FLUOROSCOPY OF L LOW EXTREM ART USING L OSM CONTRAST (08/12/15) FLUOROSCOPY OF R LOW EXTREM ART USING L OSM CONTRAST (08/12/15) FLUOROSCOPY OF RIGHT JUGULAR VEINS, GUIDANCE (06/01/17) FREE SKIN GRAFT NEC (08/03/14) HEAD SOFT TISS X-RAY NEC (04/15/13) HEMODIALYSIS (04/28/15) INCIS W REM OF FORIEGN BODY OR DEV FROM SKIN & SUBCUT TISSUE (08/08/13) INSERT INFUSION DEV IN R INT JUGULAR VEIN, PERC (06/01/17) INSERTION OF INFUSION DEV INTO R SUBCLAV VEIN, PERC APPROACH (01/19/16) INSERTION OF INFUSION DEV INTO SUP VENA CAVA, PERC APPROACH (05/17/17) INSPECTION OF UPPER INTESTINAL TRACT, ENDO (03/03/17) INTRODUCE OF OTH THROMBOLYTIC INTO PERIPH ART, PERC APPROACH (08/12/15) LAPAROSCOPIC CHOLECYSTECTOMY (09/21/13) LOC EXC LES METATAR/TAR (06/01/14) PACKED CELL TRANSFUSION (06/01/14) PERCUTAN LIVER ASPIRAT (12/31/13) PERFORMANCE OF URINARY FILTRATION, MULTIPLE (05/17/17) PERFORMANCE OF URINARY FILTRATION, SINGLE (12/18/16) SKIN & SUBQ INCISION NEC (10/24/14) TETANUS TOXOID ADMINIST (06/13/14) TRANSFUSE NONAUT RED BLOOD CELLS IN PERIPH VEIN, PERC (04/09/17) ULTRASONOGRAPHY OF RIGHT AND LEFT HEART (04/09/17) ULTRASONOGRAPHY OF SUPERIOR VENA CAVA, GUIDANCE (02/20/17) VENOUS CATHETERIZATION FOR RENAL DIALYSIS (08/08/13) VENOUS CATHETERIZATION NEC (04/30/13) Family History: States: No Known Family Hx - Social History Hx Tobacco Use: No Hx Alcohol Use: No Hx Substance Use: No - Immunization History Hx Tetanus Toxoid Vaccination: Yes Hx Influenza Vaccination: Yes Hx Pneumococcal Vaccination: Yes Review Of Systems Constitutional: Negative for: Fever, Chills Cardiovascular: Negative for: Chest Pain Respiratory: Positive for: Shortness of Breath. Negative for: Cough Gastrointestinal: Negative for: Nausea, Vomiting Skin: Negative for: Rash Physical Exam - Physical Exam Appears: Non-toxic, No Acute Distress (when on NC O2) Skin: Warm, Dry, No Rash Head: Atraumatic, Normacephalic Eye(s): bilateral: Normal Inspection, EOMI, Other (Blind) Nose: Normal Oral Mucosa: Moist Neck: Normal ROM, Supple Chest: Symmetrical, Other (dialysis catheter on right anterior chest wall) Cardiovascular: Rhythm Regular Respiratory: Decreased Breath Sounds, No Rhonchi, No Wheezing Gastrointestinal/Abdominal: Soft, No Tenderness, No Guarding, No Rebound Back: No CVA Tenderness Extremity: Capillary Refill (<2 seconds), No Deformity, Other (Bilateral BKA ) Neurological/Psych: Oriented x3, Normal Speech, Normal Cognition ED Course And Treatment - Laboratory Results Result Diagrams: 12/27/17 10:06 12/27/17 10:06 ECG: Interpreted By Me (Dr Sevilla), Viewed By Me ECG Rhythm: Sinus Rhythm, L BBB ECG Interpretation: Abnormal (peaked T) Rate From EC (BPM) O2 Sat by Pulse Oximetry: 97 (RA) Pulse Ox Interpretation: Normal Progress Note: CXR, Blood work ordered. Pt notes to be hypoxic,.Put on NC at 2 L : 98%. Case discussed with Dr Sevilla who evaluated labs and agreed upon plan and treatment. Albuterol, Insulin, D50, and kayexalte, and calcium gluconate given. case d/w Dr. Liao covering for Dr. Li agreed for admission under his service. d/w dr Temple states patient will have dialysis this afternoon Disposition - Disposition Disposition: HOSPITALIZED Disposition Time: 15:00 Condition: STABLE - Clinical Impression Clinical Impression: SOB (shortness of breath), ESRD (end stage renal disease), Hyperkalemia, Elevated troponin - PA / DEVELOPMENTAL SERVICES WORKER / Resident Statement MD/DO has reviewed & agrees with the documentation as recorded. - Scribe Statement The provider has reviewed the documentation as recorded by the Fabiola Tsai All medical record entries made by the Marlonibrigoberto were at my direction and personally dictated by me. I have reviewed the chart and agree that the record accurately reflects my personal performance of the history, physical exam, medical decision making, and the department course for this patient. I have also personally directed, reviewed, and agree with the discharge instructions and disposition.
[2017-12-27 10:13] LABS: BASO # 0.1 K/uL (0.0-0.2); BASO % 0.8 % (0.0-2.0); EOS # 0.4 K/uL (0.0-0.7); EOS % 4.1 % (0.0-4.0); HEMOGLOBIN 13.6 g/dL (12.0-18.0); LYMPH % 18.9 % (20.0-40.0); MEAN CELL VOLUME 89.7 fL (80.0-94.0); MEAN CORPUSCULAR HEMOGLOBIN 29.4 pg (27.0-31.0); MEAN CORPUSCULAR HGB CONC 32.8 g/dL (33.0-37.0); MEAN PLATELET VOLUME 8.8 fL (7.2-11.7); MONO # 0.4 K/uL (0.0-0.8); MONO % 4.1 % (0.0-10.0); NEUT # 7.5 K/uL (1.8-7.0); NEUT % 72.1 % (50.0-75.0); RBC 4.64 Mil/uL (4.40-5.90); RED CELL DISTRIBUTION WIDTH 18.4 % (11.5-14.5); WHITE BLOOD COUNT 10.4 K/uL (4.8-10.8)
--- NOTE | 2017-12-27 10:26 | RAD ---
PROCEDURE: CHEST RADIOGRAPH, 1 VIEW HISTORY: SOB COMPARISON: Comparison made with chest radiograph 12/12/2017 FINDINGS: No change right IJ dialysis catheter. Note is made of tubing and/or catheter that overlies left lung apex and left medial upper mediastinum LUNGS: Pulmonary venous congestion with bilateral alveolar-type infiltrates and bilateral effusions. PLEURA: As above. No apparent pneumothorax CARDIOVASCULAR: Heart size is difficult to assess due to silhouetting both cardiac borders. Sternotomy wires are present OSSEOUS STRUCTURES: No significant abnormalities. VISUALIZED UPPER ABDOMEN: Normal. OTHER FINDINGS: None. IMPRESSION: Pulmonary venous congestion with bilateral alveolar-type infiltrates and bilateral effusions.
[2017-12-27 10:46] LABS: ALB/GLOB RATIO 1.1 (1.0-2.1); ALBUMIN 4.5 g/dL (3.5-5.0); ALT/SGPT < 6 U/L (21-72); AST/SGOT 25 U/L (17-59); BLOOD UREA NITROGEN 117 mg/dL (9-20); CALCIUM 8.1 mg/dl (8.6-10.4); CK-MB 1.66 ng/mL (0.0-3.38); GFR AFRICAN-AMERICAN 8; GFR NON-AFRICAN AMERICAN 6
[2017-12-27] MEDS ORDERED: Calcium Gluconate 4.65 mEq/10 ml Inj IVP ONE (11:01)
[2017-12-27] MEDS ORDERED: (Novolin R) Insulin Human Regular 100 units/ml vial IV ONE ×3 (11:02→11:08)
[2017-12-27] MEDS ORDERED: Sod Polystyrene Sulf 15 gm/60 ml Susp PO ONE (11:03)
[2017-12-27] MEDS ORDERED: Dextrose 50% SYRINGE Inj (50 ml) IVP STA (11:05)
[2017-12-27] MEDS ORDERED: Albuterol 0.083% Inhal Sol (2.5 mg/3 mL) UD IH STA (11:08)
[2017-12-27] MEDS ORDERED: Sod Polystyrene Sulf 15 gm/60 ml Susp ONE (11:40)
[2017-12-27] MEDS ORDERED: (Novolin R) Insulin Human Regular 100 units/ml vial ONE (11:41)
[2017-12-27] MEDS ORDERED: Calcium Gluconate 4.65 mEq/10 ml Inj ONE (11:42)
[2017-12-27] MEDS ORDERED: Albuterol 0.083% Inhal Sol (2.5 mg/3 mL) UD ONE (11:42)
[2017-12-27] MEDS ORDERED: Dextrose 50% VIAL Inj (50 ml) IV ONE (11:42)
[2017-12-27] MEDS ORDERED: Sod Polystyrene Sulf 15 gm/60 ml Susp PO STA (12:04)
--- NOTE | 2017-12-27 13:43 | CP.PCM.PN ---
Subjective - Date & Time of Evaluation Date of Evaluation: 12/27/17 Time of Evaluation: 13:35 - Subjective Subjective: PGy2 progress note for Dr. Liao 37 year old male with past medical history of uncontrolled DM, HTN, COPD, CAD s/ p CABG, hx of CVA, ESRD on HD T, Th, Sat presents to hospital for dyspnea and feeling bloated since yesterday. patient states that he missed his dialysis session yesterday due to having diffuse body pains. Patient developed shortness of breath, nausea and vomiting this morning. Patient also had about 4 episode of diarrhea yesterday. Currently, patient continues to complain of shortness of breath. Denies having any cough, F/C. Patient is also complaining of epigastric pain that is non-radiating. In ED, pt noted to have worsening Cr 9.3 (previously 5.1), BUN 117 (previously 40). Patient also noted to have significantly elevated K of 8.3 with peaked T waves and widened QRS on EKG. PMHx: stated above Sx: CABG, LE embelectomy, B/L BKA, cholecystectomy, port cath Social: denies tobacco, ETOH or drug use. Lives ta home with father PMD: Jen Objective - Vital Signs/Intake and Output Vital Signs (last 24 hours): Temp Pulse Resp BP Pulse Ox 97.7 F 78 20 193/73 H 95 12/27/17 09:33 12/27/17 13:05 12/27/17 13:05 12/27/17 13:05 12/27/17 13:05 - Labs Labs: 12/27/17 10:06 12/27/17 10:06 - Constitutional Appears: Non-toxic, No Acute Distress - Head Exam Head Exam: ATRAUMATIC - ENT Exam ENT Exam: Mucous Membranes Moist - Respiratory Exam Respiratory Exam: Clear to Ausculation Bilateral. absent: Accessory Muscle Use , Rales, Rhonchi, Wheezes, Respiratory Distress - Cardiovascular Exam Cardiovascular Exam: REGULAR RHYTHM, +S1, +S2. absent: Gallop, Rubs, Murmur - GI/Abdominal Exam GI & Abdominal Exam: Soft, Normal Bowel Sounds. absent: Distended, Firm, Guarding, Rigid, Tenderness, Organomegaly - Extremities Exam Extremities Exam: absent: Pedal Edema, Tenderness Additional comments: B/L above knee amputation - Neurological Exam Neurological Exam: Alert, Awake, Oriented x3 - Psychiatric Exam Psychiatric exam: Normal Affect, Normal Mood - Skin Skin Exam: Dry, Intact, Normal Color, Warm Assessment and Plan - Assessment and Plan (Free Text) Assessment: ESRD on hemodialysis T, Th sat - On presentation BUN/Cr: 117/9.3 - Nephrology, Dr. Temple is consulted - Pt will have dialysis done today - Continue home medications: Nephrovite, ergocalciferol, calcium carbonate Hyperkalemia - K+8.3. - EKG changes noted with peaked T waves and widened WRS - Pt given calcium gluconate, insluin 8 units, duoneb breathing treatment and Kayexelate in the ED - Pt will undergo dialysis now and possibly again tomorrow per suction roller. - Will repeat BMP this evening Diabetes mellitus with retinopathy Accuchecks ACHS ISS Lantus 10 units HS Last HgbA1c was CAD (coronary artery disease) On admission, troponins slightly elevated likely due to kidney failure. Will trend serial troponins and EKG Continue home medications: Aspirin, Crestor, Ranexa, Coreg, Imdur Asthma CXR on admission showed pulmonary venous congestion with B/L alveolar type infiltrate and bilateral effusions Singular and duoneb q4h NC prn to maintain O2>92% HTN (hypertension) Continue home coreg norvasc Blood pressure elevated on admission likely due to fluid overload Seizure disorder Continue home Depakoate and Keprra no recent active seizure. Afib proxismal afib, not a good candidant for anticoaugation due to GI bleed in the past per cardiology's note in past Continue amiodrone for rate control at 200mg Continue home Coreg Lee stokes Aspirin Prophylactic measure Heparin 5000 units sc q12h protonix 40mg All managements and orders per Dr. Liao
--- NOTE | 2017-12-27 15:02 | CP.PCM.CON ---
History of Present Illness - History of Present Illness History of Present Illness: pt seen and examined in ER labs vitals reviewed missed HD Hyperkalemia will plan for HD today and tomorrow as per TTS schedule d/w team Past Patient History - Infectious Disease Hx of Infectious Diseases: None - Tetanus Immunizations Tetanus Immunization: >10 years Ago - Past Medical History & Family History Past Medical History?: Yes - Past Social History Smoking Status: Never Smoked - CARDIAC Hx Atrial Fibrillation: Yes Hx Cardia Arrhythmia: Yes Hx Congestive Heart Failure: Yes Hx Hypercholesterolemia: Yes Hx Hypertension: Yes - PULMONARY Hx Asthma: Yes Hx Bronchitis: Yes Hx Chronic Obstructive Pulmonary Disease (COPD): Yes Hx Pneumonia: Yes - NEUROLOGICAL Hx Alzheimer's Disease: Yes Hx Seizures: Yes - HEENT Hx HEENT Problems: Yes Hx Blind: Yes (legally blind) Hx Cataracts: Yes - RENAL Hx Chronic Kidney Disease: Yes - ENDOCRINE/METABOLIC Hx Hypothyroidism: Yes - HEMATOLOGICAL/ONCOLOGICAL Hx Anemia: Yes - INTEGUMENTARY Hx Dermatological Problems: No - MUSCULOSKELETAL/RHEUMATOLOGICAL Hx Arthritis: Yes - GASTROINTESTINAL Hx Gall Bladder Disease: Yes Hx Gastritis: Yes - GENITOURINARY/GYNECOLOGICAL Hx Sexually Transmitted Disorders: No - PSYCHIATRIC Hx Anxiety: Yes Hx Depression: Yes Hx Substance Use: No - SURGICAL HISTORY Hx Cholecystectomy: Yes (2011) 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/2009) Hx Coronary Stent: Yes - ANESTHESIA Hx Anesthesia: Yes Hx Anesthesia Reactions: No Hx Malignant Hyperthermia: No Meds Allergies/Adverse Reactions: Allergies Allergy/AdvReac Type Severity Reaction Status Date / Time acetaminophen [From Percocet] Allergy RASH Verified 12/27/17 09:33 atenolol Allergy RASH Verified 12/27/17 09:33 digoxin Allergy RASH Verified 12/27/17 09:33 milk Allergy ITCHING Verified 12/27/17 09:33 morphine Allergy RASH Verified 12/27/17 09:33 oxycodone HCl [From Percocet] Allergy RASH Verified 12/27/17 09:33 - Medications Medications: Current Medications Albuterol/Ipratropium (Duoneb 3 Mg/0.5 Mg (3 Ml) Ud) 3 ml IH RQ4 [facility] Amiodarone HCl (Cordarone) 200 mg PO DAILY [facility] Amlodipine Besylate (Norvasc) 10 mg PO DAILY [facility] Aspirin (Aspirin Chewable) 81 mg PO DAILY [facility] Calcium Carbonate (Oscal) 500 mg PO BID [facility] Carvedilol (Coreg) 25 mg PO BID [facility] Docusate Sodium (Colace) 100 mg PO BID PRN PRN Reason: Constipation Ergocalciferol (Drisdol 50,000 Intl Units Cap) 1 cap PO Q7D [facility] Heparin Sodium (Porcine) (Heparin) 5,000 units SC Q12 [facility] Insulin Glargine (Lantus) 10 unit SC HS [facility] Insulin Human Regular (Novolin R) 0 unit SC ACHS [facility] PRN Reason: Protocol Isosorbide Mononitrate (Imdur) 60 mg PO DAILY [facility] Levetiracetam (Keppra) 500 mg PO BID [facility] Montelukast Sodium (Singulair) 10 mg PO DAILY [facility] Pantoprazole Sodium (Protonix Ec Tab) 20 mg PO DAILY [facility] Ranolazine (Ranexa) 500 mg PO BID [facility] Rosuvastatin Calcium (Crestor) 10 mg PO HS [facility] Sertraline HCl (Zoloft) 50 mg PO DAILY [facility] Valproate Sodium (Depakene Cap) 250 mg PO QID [facility] Vitamin B Complex/Vit C/Folic Acid (Nephro-Courtney) 1 tab PO DAILY@0800 [facility] Results - Vital Signs Recent Vital Signs: Last Vital Signs Temp 97.5 F L 12/27/17 13:35 Pulse 78 12/27/17 13:35 Resp 16 12/27/17 13:35 BP 181/80 H 12/27/17 14:45 Pulse Ox 97 12/27/17 14:46 - Labs Result Diagrams: 12/27/17 10:06 12/27/17 10:06 Labs: Laboratory Results - last 24 hr 12/27/17 12/27/17 12/27/17 09:31 10:06 10:06 WBC 10.4 RBC 4.64 Hgb 13.6 Hct 41.7 MCV 89.7 MCH 29.4 MCHC 32.8 L RDW 18.4 H Plt Count 184 MPV 8.8 Neut % (Auto) 72.1 Lymph % (Auto) 18.9 L [place] % (Auto) 4.1 Eos % (Auto) 4.1 H Baso % (Auto) 0.8 Neut # (Auto) 7.5 H Lymph # (Auto) 2.0 [place] # (Auto) 0.4 Eos # (Auto) 0.4 Baso # (Auto) 0.1 Sodium 141 Potassium 8.3 H* D Chloride 97 L Carbon Dioxide 19 L Anion Gap 33 H BUN 117 H* D Creatinine 9.3 H* D Est GFR ( Amer) 8 Est GFR (Non-Af Amer) 6 POC Glucose (mg/dL) 156 H Random Glucose 156 H Calcium 8.1 L Total Bilirubin 0.8 AST 25 ALT < 6 L D Alkaline Phosphatase 221 H Total Creatine Kinase 40 L CK-MB (Mass) 1.66 Troponin I 0.1680 H* Total Protein 8.7 H Albumin 4.5 Globulin 4.2 H Albumin/Globulin Ratio 1.1
[2017-12-27] MEDS: Ranolazine 500 mg Extended Release Tablets PO SCH ×2 (22:19→22:29)
[2017-12-27] MEDS: (Lantus) Insulin Glargine, Recombinant SC SCH (22:19)
[2017-12-27] MEDS: (Novolin R) Insulin Human Regular 100 units/ml vial SC SCH (22:22)
[2017-12-28] MEDS: Albuterol-Ipratrop 3 mg / 0.5 (3 ml) UD IH SCH ×4 (07:25→19:24)
[2017-12-28] MEDS: Multivitamin Vitamin B Complex (Nephro-Vite) Tab PO SCH (08:46)
[2017-12-28] MEDS: (Novolin R) Insulin Human Regular 100 units/ml vial SC SCH ×4 (08:47→18:30)
[2017-12-28] MEDS: Ranolazine 500 mg Extended Release Tablets PO SCH ×2 (09:43→18:25)
[2017-12-28] MEDS: Pantoprazole 20 mg EC Tab PO SCH (09:43)
[2017-12-28] MEDS ORDERED: Ergocalciferol 50,000 Intl Units Cap PO SCH (10:00)
--- NOTE | 2017-12-28 10:50 | CP.PCM.HP ---
History of Present Illness - History of Present Illness History of Present Illness: pt missed dialysis has mica felt pain all over his body had fever at home Present on Admission - Present on Admission Any Indicators Present on Admission: Yes Past Patient History - Infectious Disease Hx of Infectious Diseases: None - Tetanus Immunizations Tetanus Immunization: >10 years Ago - Past Medical History & Family History Past Medical History?: Yes - Past Social History Smoking Status: Never Smoked - CARDIAC Hx Atrial Fibrillation: Yes Hx Cardia Arrhythmia: Yes Hx Congestive Heart Failure: Yes Hx Hypercholesterolemia: Yes Hx Hypertension: Yes - PULMONARY Hx Asthma: Yes Hx Bronchitis: Yes Hx Chronic Obstructive Pulmonary Disease (COPD): Yes Hx Pneumonia: Yes - NEUROLOGICAL Hx Alzheimer's Disease: Yes Hx Seizures: Yes - HEENT Hx HEENT Problems: Yes Hx Blind: Yes (legally blind) Hx Cataracts: Yes - RENAL Hx Chronic Kidney Disease: Yes - ENDOCRINE/METABOLIC Hx Hypothyroidism: Yes - HEMATOLOGICAL/ONCOLOGICAL Hx Anemia: Yes - INTEGUMENTARY Hx Dermatological Problems: No - MUSCULOSKELETAL/RHEUMATOLOGICAL Hx Arthritis: Yes - GASTROINTESTINAL Hx Gall Bladder Disease: Yes Hx Gastritis: Yes - GENITOURINARY/GYNECOLOGICAL Hx Sexually Transmitted Disorders: No - PSYCHIATRIC Hx Anxiety: Yes Hx Depression: Yes Hx Substance Use: No - SURGICAL HISTORY Hx Cholecystectomy: Yes (2011) 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/2009) Hx Coronary Stent: Yes - ANESTHESIA Hx Anesthesia: Yes Hx Anesthesia Reactions: No Hx Malignant Hyperthermia: No Meds Allergies/Adverse Reactions: Allergies Allergy/AdvReac Type Severity Reaction Status Date / Time acetaminophen [From Percocet] Allergy RASH Verified 12/27/17 09:33 atenolol Allergy RASH Verified 12/27/17 09:33 digoxin Allergy RASH Verified 12/27/17 09:33 milk Allergy ITCHING Verified 12/27/17 09:33 morphine Allergy RASH Verified 12/27/17 09:33 oxycodone HCl [From Percocet] Allergy RASH Verified 12/27/17 09:33 Physical Exam - Constitutional Appears: Non-toxic - Head Exam Head Exam: ATRAUMATIC - Eye Exam Eye Exam: Conjunctival injection - ENT Exam ENT Exam: Mucous Membranes Dry - Neck Exam Neck exam: Positive for: Full Rom - Respiratory Exam Respiratory Exam: Decreased Breath Sounds - Cardiovascular Exam Cardiovascular Exam: REGULAR RHYTHM - GI/Abdominal Exam GI & Abdominal Exam: Normal Bowel Sounds - Rectal Exam Rectal Exam: NORMAL INSPECTION - Extremities Exam Additional comments: bilateral amputation - Back Exam Back exam: CVA tenderness (L) - Psychiatric Exam Psychiatric exam: Normal Mood - Skin Skin Exam: Pallor Results - Vital Signs Recent Vital Signs: Last Vital Signs Temp 98.2 F 12/28/17 07:47 Pulse 82 12/28/17 07:47 Resp 20 12/28/17 07:47 BP 156/82 H 12/28/17 09:43 Pulse Ox 99 12/28/17 07:47 - Labs Result Diagrams: 12/27/17 10:06 12/27/17 10:06 Labs: Laboratory Results - last 24 hr 12/27/17 12/27/17 12/27/17 16:01 19:54 21:41 POC Glucose (mg/dL) 141 H 126 H 137 H 12/28/17 06:39 POC Glucose (mg/dL) 119 H Assessment & Plan - Assessment and Plan (Free Text) Assessment: esrf missed dialysis body pain diarhea dmid copd cad Plan: admit dialysis and as per orders - Date & Time Date: 12/28/17 Time: 10:52
[2017-12-28 13:36] LABS: BASO # 0.1 K/uL (0.0-0.2); BASO % 0.9 % (0.0-2.0); EOS # 0.3 K/uL (0.0-0.7); EOS % 3.8 % (0.0-4.0); HEMOGLOBIN 11.9 g/dL (12.0-18.0); LYMPH # 2.1 K/uL (1.0-4.3); LYMPH % 26.4 % (20.0-40.0); MEAN CELL VOLUME 87.9 fL (80.0-94.0); MEAN PLATELET VOLUME 8.9 fL (7.2-11.7); MONO # 0.6 K/uL (0.0-0.8); MONO % 6.8 % (0.0-10.0); NEUT # 5.1 K/uL (1.8-7.0); NEUT % 62.1 % (50.0-75.0); RBC 4.11 Mil/uL (4.40-5.90); WHITE BLOOD COUNT 8.1 K/uL (4.8-10.8)
[2017-12-28 13:52] LABS: ALBUMIN 3.6 g/dL (3.5-5.0); CALCIUM 8.2 mg/dl (8.6-10.4)
[2017-12-28 14:10] LABS: CK-MB 1.56 ng/mL (0.0-3.38); TROPONIN I 0.485 ng/mL (0.00-0.120)
[2017-12-28 14:20] LABS: INR 1.3; PROTHROMBIN TIME 14.5 SECONDS (9.7-12.2)
--- NOTE | 2017-12-28 20:32 | CARD ---
APPROVED REPORT EKG Measurement Heart [id number] <Conclusion> Sinus rhythm with 1st degree AV block Left axis deviation Left bundle branch block Abnormal ECG
[2017-12-28] MEDS: (Lantus) Insulin Glargine, Recombinant SC SCH (21:49)
--- NOTE | 2017-12-28 22:39 | CP.PCM.PN ---
Subjective - Date & Time of Evaluation Date of Evaluation: 12/28/17 Time of Evaluation: 13:00 - Subjective Subjective: renal follow up note no events ovenright vss heent normal op moist no jvd [id number] present no resp distress skin normal abd soft nt nt b/l AKA no fnd cooperative ESRD/HTN/DM/anemia/chest pain hd tts, per schedule lytes reviwed anemia stable monitor phos levels, i have ordered levels, continue binders bp continue current meds chest pain per primary team Objective - Vital Signs/Intake and Output Vital Signs (last 24 hours): Temp Pulse Resp BP Pulse Ox 97.9 F 81 18 121/82 100 12/28/17 15:49 12/28/17 15:49 12/28/17 15:49 12/28/17 18:25 12/28/17 15:49 - Medications Medications: Current Medications Albuterol/Ipratropium (Duoneb 3 Mg/0.5 Mg (3 Ml) Ud) 3 ml IH RQ4 [facility] Last Admin: 12/28/17 19:24 Dose: 3 ml Amiodarone HCl (Cordarone) 200 mg PO DAILY [facility] Last Admin: 12/28/17 09:47 Dose: 200 mg Amlodipine Besylate (Norvasc) 10 mg PO DAILY [facility] Last Admin: 12/28/17 09:54 Dose: 10 mg Aspirin (Aspirin Chewable) 81 mg PO DAILY [facility] Last Admin: 12/28/17 09:46 Dose: 81 mg Calcium Carbonate (Oscal) 500 mg PO BID [facility] Last Admin: 12/28/17 18:25 Dose: 500 mg Carvedilol (Coreg) 25 mg PO BID [facility] Last Admin: 12/28/17 18:25 Dose: 25 mg Docusate Sodium (Colace) 100 mg PO BID PRN PRN Reason: Constipation Last Admin: 12/28/17 09:43 Dose: 100 mg Ergocalciferol (Drisdol 50,000 Intl Units Cap) 1 cap PO Q7D [facility] Last Admin: 12/28/17 13:41 Dose: Not Given Heparin Sodium (Porcine) (Heparin) 5,000 units SC Q12 [facility] Last Admin: 12/28/17 21:48 Dose: 5,000 units Heparin Sodium (Porcine) (Heparin) 3,700 units IVP TTS [facility] Stop: 01/07/18 10:01 Last Admin: 12/28/17 15:30 Dose: 3,700 units Insulin Glargine (Lantus) 10 unit SC [facility] Last Admin: 12/28/17 21:49 Dose: 10 units Insulin Human Regular (Novolin R) 0 unit SC [facility] PRN Reason: Protocol Last Admin: 12/28/17 18:30 Dose: 3 unit Isosorbide Mononitrate (Imdur) 60 mg PO DAILY [facility] Last Admin: 12/28/17 09:47 Dose: 60 mg Levetiracetam (Keppra) 500 mg PO BID [facility] Last Admin: 12/28/17 18:25 Dose: 500 mg Montelukast Sodium (Singulair) 10 mg PO [facility] Last Admin: 12/28/17 21:49 Dose: 10 mg Pantoprazole Sodium (Protonix Ec Tab) 20 mg PO DAILY [facility] Last Admin: 12/28/17 09:43 Dose: 20 mg Ranolazine (Ranexa) 500 mg PO BID [facility] Last Admin: 12/28/17 18:25 Dose: 500 mg Rosuvastatin Calcium (Crestor) 10 mg PO [facility] Last Admin: 12/28/17 21:49 Dose: 10 mg Sertraline HCl (Zoloft) 50 mg PO [facility] Last Admin: 12/28/17 21:49 Dose: 50 mg Valproate Sodium (Depakene Cap) 250 mg PO QID [facility] Last Admin: 12/28/17 21:49 Dose: 250 mg Vitamin B Complex/Vit C/Folic Acid (Nephro-Courtney) 1 tab PO DAILY@0800 [facility] Last Admin: 12/28/17 08:46 Dose: 1 tab - Labs Labs: 12/28/17 13:34 12/28/17 13:34 PT 14.5 SECONDS (9.7-12.2) H 12/28/17 13:34 INR 1.3 12/28/17 13:34 APTT 179 SECONDS (21-34) H* 12/28/17 13:34
[2017-12-29] MEDS: Albuterol-Ipratrop 3 mg / 0.5 (3 ml) UD IH SCH ×6 (00:38→20:16)
[2017-12-29] MEDS: (Novolin R) Insulin Human Regular 100 units/ml vial SC SCH ×5 (08:10→21:08)
[2017-12-29] MEDS: Multivitamin Vitamin B Complex (Nephro-Vite) Tab PO SCH (08:30)
[2017-12-29] MEDS: Pantoprazole 20 mg EC Tab PO SCH (10:07)
[2017-12-29] MEDS: Ranolazine 500 mg Extended Release Tablets PO SCH ×2 (10:08→17:39)
--- NOTE | 2017-12-29 12:16 | CP.PCM.PN ---
Subjective - Date & Time of Evaluation Date of Evaluation: 12/29/17 Time of Evaluation: 12:13 - Subjective Subjective: feels beter less chest pain triponin was v hig Objective - Vital Signs/Intake and Output Vital Signs (last 24 hours): Temp Pulse Resp BP Pulse Ox 98.1 F 100 H 18 117/78 96 12/29/17 09:18 12/29/17 09:18 12/29/17 09:18 12/29/17 10:07 12/29/17 09:18 - Medications Medications: Current Medications Albuterol/Ipratropium (Duoneb 3 Mg/0.5 Mg (3 Ml) Ud) 3 ml IH RQ4 [facility] Last Admin: 12/29/17 07:51 Dose: Not Given Amiodarone HCl (Cordarone) 200 mg PO DAILY [facility] Last Admin: 12/29/17 10:08 Dose: 200 mg Amlodipine Besylate (Norvasc) 10 mg PO DAILY [facility] Last Admin: 12/29/17 10:08 Dose: 10 mg Aspirin (Aspirin Chewable) 81 mg PO DAILY [facility] Last Admin: 12/29/17 10:08 Dose: 81 mg Calcium Carbonate (Oscal) 500 mg PO BID [facility] Last Admin: 12/29/17 10:08 Dose: 500 mg Carvedilol (Coreg) 25 mg PO BID [facility] Last Admin: 12/29/17 10:07 Dose: 25 mg Docusate Sodium (Colace) 100 mg PO BID PRN PRN Reason: Constipation Last Admin: 12/28/17 09:43 Dose: 100 mg Ergocalciferol (Drisdol 50,000 Intl Units Cap) 1 cap PO Q7D [facility] Last Admin: 12/28/17 13:41 Dose: Not Given Heparin Sodium (Porcine) (Heparin) 5,000 units SC Q12 [facility] Last Admin: 12/29/17 10:09 Dose: 5,000 units Heparin Sodium (Porcine) (Heparin) 3,700 units IVP TTS [facility] Stop: 01/07/18 10:01 Last Admin: 12/28/17 15:30 Dose: 3,700 units Insulin Glargine (Lantus) 10 unit SC HS [facility] Last Admin: 12/28/17 21:49 Dose: 10 units Insulin Human Regular (Novolin R) 0 unit SC ACHS [facility] PRN Reason: Protocol Last Admin: 12/29/17 08:10 Dose: 3 unit Isosorbide Mononitrate (Imdur) 60 mg PO DAILY [facility] Last Admin: 12/29/17 10:06 Dose: 60 mg Levetiracetam (Keppra) 500 mg PO BID [facility] Last Admin: 12/29/17 10:08 Dose: 500 mg Montelukast Sodium (Singulair) 10 mg PO [facility] Last Admin: 12/28/17 21:49 Dose: 10 mg Pantoprazole Sodium (Protonix Ec Tab) 20 mg PO DAILY [facility] Last Admin: 12/29/17 10:07 Dose: 20 mg Ranolazine (Ranexa) 500 mg PO BID [facility] Last Admin: 12/29/17 10:08 Dose: 500 mg Rosuvastatin Calcium (Crestor) 10 mg PO [facility] Last Admin: 12/28/17 21:49 Dose: 10 mg Sertraline HCl (Zoloft) 50 mg PO [facility] Last Admin: 12/28/17 21:49 Dose: 50 mg Valproate Sodium (Depakene Cap) 250 mg PO QID [facility] Last Admin: 12/29/17 10:08 Dose: 250 mg Vitamin B Complex/Vit C/Folic Acid (Nephro-[place]) 1 tab PO DAILY@0800 [facility] Last Admin: 12/29/17 08:30 Dose: 1 tab - Labs Labs: 12/28/17 13:34 12/28/17 13:34 PT 14.5 SECONDS (9.7-12.2) H 12/28/17 13:34 INR 1.3 12/28/17 13:34 APTT 179 SECONDS (21-34) H* 12/28/17 13:34 - Constitutional Appears: Non-toxic - Head Exam Head Exam: ATRAUMATIC - Eye Exam Eye Exam: Conjunctival injection - ENT Exam ENT Exam: Mucous Membranes Dry - Neck Exam Neck Exam: Full ROM - Respiratory Exam Respiratory Exam: Clear to Ausculation Bilateral - Cardiovascular Exam Cardiovascular Exam: REGULAR RHYTHM - GI/Abdominal Exam GI & Abdominal Exam: Normal Bowel Sounds - Rectal Exam Rectal Exam: NORMAL INSPECTION - Back Exam Back Exam: CVA tenderness (L) - Psychiatric Exam Psychiatric exam: Normal Affect - Skin Skin Exam: Pallor Assessment and Plan - Assessment and Plan (Free Text) Assessment: cad hi triponin dm copd esrf Plan: will repeat triponin ekg and cont med
[2017-12-29 14:47] LABS: CK-MB 0.88 ng/mL (0.0-3.38); TROPONIN I 0.217 ng/mL (0.00-0.120)
[2017-12-29] MEDS: (Lantus) Insulin Glargine, Recombinant SC SCH (21:07)
[2017-12-30] MEDS: Albuterol-Ipratrop 3 mg / 0.5 (3 ml) UD IH SCH ×7 (00:49→23:36)
[2017-12-30] MEDS: (Novolin R) Insulin Human Regular 100 units/ml vial SC SCH ×4 (07:30→21:50)
[2017-12-30] MEDS: Multivitamin Vitamin B Complex (Nephro-Vite) Tab PO SCH (09:00)
[2017-12-30] MEDS: Ranolazine 500 mg Extended Release Tablets PO SCH ×2 (10:29→18:00)
[2017-12-30] MEDS: Pantoprazole 20 mg EC Tab PO SCH (10:30)
--- NOTE | 2017-12-30 15:02 | CP.PCM.PN ---
Subjective - Date & Time of Evaluation Date of Evaluation: 12/30/17 Time of Evaluation: 15:01 - Subjective Subjective: Renal Note Pt seen and examined labs and vitals reviewed plan for HD tomorrow as ordered Please call if any Qs Thanks Eric Temple Objective - Vital Signs/Intake and Output Vital Signs (last 24 hours): Temp Pulse Resp BP Pulse Ox 98.1 F 64 18 122/80 98 12/30/17 07:40 12/30/17 08:00 12/30/17 07:40 12/30/17 07:40 12/30/17 07:40 - Medications Medications: Current Medications Albuterol/Ipratropium (Duoneb 3 Mg/0.5 Mg (3 Ml) Ud) 3 ml IH RQ4 [facility] Last Admin: 12/30/17 13:48 Dose: Not Given Amiodarone HCl (Cordarone) 200 mg PO DAILY [facility] Last Admin: 12/30/17 11:00 Dose: Not Given Amlodipine Besylate (Norvasc) 10 mg PO DAILY [facility] Last Admin: 12/30/17 11:24 Dose: Not Given Aspirin (Aspirin Chewable) 81 mg PO DAILY [facility] Last Admin: 12/30/17 10:29 Dose: 81 mg Calcium Carbonate (Oscal) 500 mg PO BID [facility] Last Admin: 12/30/17 10:29 Dose: 500 mg Carvedilol (Coreg) 25 mg PO BID [facility] Last Admin: 12/30/17 11:00 Dose: Not Given Docusate Sodium (Colace) 100 mg PO BID PRN PRN Reason: Constipation Last Admin: 12/30/17 10:29 Dose: 100 mg Ergocalciferol (Drisdol 50,000 Intl Units Cap) 1 cap PO Q7D [facility] Last Admin: 12/28/17 13:41 Dose: Not Given Heparin Sodium (Porcine) (Heparin) 5,000 units SC Q12 [facility] Last Admin: 12/30/17 11:00 Dose: Not Given Hydromorphone HCl (Dilaudid) 2 mg PO Q6H PRN PRN Reason: Pain Last Admin: 12/30/17 10:28 Dose: 2 mg Insulin Glargine (Lantus) 10 unit SC HS [facility] Last Admin: 12/29/17 21:07 Dose: 10 units Insulin Human Regular (Novolin R) 0 unit SC ACHS [facility] PRN Reason: Protocol Last Admin: 12/30/17 12:30 Dose: 2 unit Isosorbide Mononitrate (Imdur) 60 mg PO DAILY [facility] Last Admin: 12/30/17 11:24 Dose: Not Given Levetiracetam (Keppra) 500 mg PO BID [facility] Last Admin: 12/30/17 10:29 Dose: 500 mg Montelukast Sodium (Singulair) 10 mg PO [facility] Last Admin: 12/29/17 21:06 Dose: 10 mg Pantoprazole Sodium (Protonix Ec Tab) 20 mg PO DAILY [facility] Last Admin: 12/30/17 10:30 Dose: 20 mg Ranolazine (Ranexa) 500 mg PO BID [facility] Last Admin: 12/30/17 10:29 Dose: 500 mg Rosuvastatin Calcium (Crestor) 10 mg PO [facility] Last Admin: 12/29/17 21:07 Dose: 10 mg Sertraline HCl (Zoloft) 50 mg PO [facility] Last Admin: 12/29/17 21:07 Dose: 50 mg Valproate Sodium (Depakene Cap) 250 mg PO QID [facility] Last Admin: 12/30/17 13:56 Dose: 250 mg Vitamin B Complex/Vit C/Folic Acid (Nephro-Courtney) 1 tab PO DAILY@0800 [facility] Last Admin: 12/30/17 09:00 Dose: 1 tab - Labs Labs: 12/28/17 13:34 12/28/17 13:34 PT 14.5 SECONDS (9.7-12.2) H 12/28/17 13:34 INR 1.3 12/28/17 13:34 APTT 179 SECONDS (21-34) H* 12/28/17 13:34
--- NOTE | 2017-12-30 20:00 | CP.PCM.CON ---
History of Present Illness - History of Present Illness History of Present Illness: 37 y/o male with history of End stage Renal disease (T, Thurs, Sat), COPD, CAD (CABG), DM and HTN presents to ED with C/O SOB since 4am this morning. Patient states he missed dialysis secondary to "pain all over". Patient has history of prior visits with same complaints and denies fever, chest pain, cough, palpitations or any other complaints at this time. patient with numerus hospitalizations. Currently no CP Denies associated diaphoresis, shortness of breath, vomiting, or nausea. EK09/09/17; NSR, LVH, chronic ST changes lateral, old inferior infarct. 10/02/17: course AFIB: rate controlled, chronic LVH with strain 10/13/17: NSR, LVH, chronic lateral strain\\ 10/30/17; NSR, old inferior infarct, septal infarct, chronic LVH with lateral strain pattern. 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 moderate pulmonary stenosis Chronic diastolic dysfunction grade 3 Chronic pain Hx of non-compliance with meds and on occasion HD Review of Systems - Constitutional Constitutional: As Per HPI Past Patient History - Infectious Disease Hx of Infectious Diseases: None - Tetanus Immunizations Tetanus Immunization: >10 years Ago - Past Medical History & Family History Past Medical History?: Yes - Past Social History Smoking Status: Never Smoked - CARDIAC Hx Atrial Fibrillation: Yes Hx Cardia Arrhythmia: Yes Hx Congestive Heart Failure: Yes Hx Hypercholesterolemia: Yes Hx Hypertension: Yes - PULMONARY Hx Asthma: Yes Hx Bronchitis: Yes Hx Chronic Obstructive Pulmonary Disease (COPD): Yes Hx Pneumonia: Yes - NEUROLOGICAL Hx Alzheimer's Disease: Yes Hx Seizures: Yes - HEENT Hx HEENT Problems: Yes Hx Blind: Yes (legally blind) Hx Cataracts: Yes - RENAL Hx Chronic Kidney Disease: Yes - ENDOCRINE/METABOLIC Hx Hypothyroidism: Yes - HEMATOLOGICAL/ONCOLOGICAL Hx Anemia: Yes - INTEGUMENTARY Hx Dermatological Problems: No - MUSCULOSKELETAL/RHEUMATOLOGICAL Hx Arthritis: Yes - GASTROINTESTINAL Hx Gall Bladder Disease: Yes Hx Gastritis: Yes - GENITOURINARY/GYNECOLOGICAL Hx Sexually Transmitted Disorders: No - PSYCHIATRIC Hx Anxiety: Yes Hx Depression: Yes Hx Substance Use: No - SURGICAL HISTORY Hx Cholecystectomy: Yes (2011) 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/2009) Hx Coronary Stent: Yes - ANESTHESIA Hx Anesthesia: Yes Hx Anesthesia Reactions: No Hx Malignant Hyperthermia: No Meds Allergies/Adverse Reactions: Allergies Allergy/AdvReac Type Severity Reaction Status Date / Time acetaminophen [From Percocet] Allergy RASH Verified 12/27/17 09:33 atenolol Allergy RASH Verified 12/27/17 09:33 digoxin Allergy RASH Verified 12/27/17 09:33 milk Allergy ITCHING Verified 12/27/17 09:33 morphine Allergy RASH Verified 12/27/17 09:33 oxycodone HCl [From Percocet] Allergy RASH Verified 12/27/17 09:33 - Medications Medications: Current Medications Albuterol/Ipratropium (Duoneb 3 Mg/0.5 Mg (3 Ml) Ud) 3 ml IH RQ4 [facility] Last Admin: 12/30/17 13:48 Dose: Not Given Amiodarone HCl (Cordarone) 200 mg PO DAILY [facility] Last Admin: 12/30/17 11:00 Dose: Not Given Amlodipine Besylate (Norvasc) 10 mg PO DAILY [facility] Last Admin: 12/30/17 11:24 Dose: Not Given Aspirin (Aspirin Chewable) 81 mg PO DAILY [facility] Last Admin: 12/30/17 10:29 Dose: 81 mg Calcium Carbonate (Oscal) 500 mg PO BID [facility] Last Admin: 12/30/17 10:29 Dose: 500 mg Carvedilol (Coreg) 25 mg PO BID [facility] Last Admin: 12/30/17 11:00 Dose: Not Given Docusate Sodium (Colace) 100 mg PO BID PRN PRN Reason: Constipation Last Admin: 12/30/17 10:29 Dose: 100 mg Ergocalciferol (Drisdol 50,000 Intl Units Cap) 1 cap PO Q7D [facility] Last Admin: 12/28/17 13:41 Dose: Not Given Heparin Sodium (Porcine) (Heparin) 5,000 units SC Q12 [facility] Last Admin: 12/30/17 11:00 Dose: Not Given Hydromorphone HCl (Dilaudid) 2 mg PO Q6H PRN PRN Reason: Pain Last Admin: 12/30/17 10:28 Dose: 2 mg Insulin Glargine (Lantus) 10 unit SC [facility] Last Admin: 12/29/17 21:07 Dose: 10 units Insulin Human Regular (Novolin R) 0 unit SC [facility] PRN Reason: Protocol Last Admin: 12/30/17 12:30 Dose: 2 unit Isosorbide Mononitrate (Imdur) 60 mg PO DAILY [facility] Last Admin: 12/30/17 11:24 Dose: Not Given Levetiracetam (Keppra) 500 mg PO BID [facility] Last Admin: 12/30/17 10:29 Dose: 500 mg Montelukast Sodium (Singulair) 10 mg PO [facility] Last Admin: 12/29/17 21:06 Dose: 10 mg Pantoprazole Sodium (Protonix Ec Tab) 20 mg PO DAILY [facility] Last Admin: 12/30/17 10:30 Dose: 20 mg Ranolazine (Ranexa) 500 mg PO BID [facility] Last Admin: 12/30/17 10:29 Dose: 500 mg Rosuvastatin Calcium (Crestor) 10 mg PO [facility] Last Admin: 12/29/17 21:07 Dose: 10 mg Sertraline HCl (Zoloft) 50 mg PO [facility] Last Admin: 12/29/17 21:07 Dose: 50 mg Valproate Sodium (Depakene Cap) 250 mg PO QID [facility] Last Admin: 12/30/17 13:56 Dose: 250 mg Vitamin B Complex/Vit C/Folic Acid (Nephro-Courtney) 1 tab PO DAILY@0800 [facility] Last Admin: 12/30/17 09:00 Dose: 1 tab Physical Exam - Constitutional Appears: No Acute Distress - Head Exam Head Exam: ATRAUMATIC, NORMAL INSPECTION, NORMOCEPHALIC - Eye Exam Eye Exam: absent: Normal appearance, Scleral icterus - ENT Exam ENT Exam: Mucous Membranes Moist - Neck Exam Neck exam: Positive for: Normal Inspection - Respiratory Exam Respiratory Exam: Clear to Auscultation Bilateral, NORMAL BREATHING PATTERN. absent: Rales, Rhonchi, Wheezes - Cardiovascular Exam Cardiovascular Exam: REGULAR RHYTHM, +S1, +S2, Systolic Murmur. absent: JVD - GI/Abdominal Exam GI & Abdominal Exam: Normal Bowel Sounds, Soft. absent: Tenderness - Extremities Exam Extremities exam: Negative for: normal inspection (B/L BKA) - Neurological Exam Neurological exam: Alert, Oriented x3 - Psychiatric Exam Psychiatric exam: Normal Affect, Normal Mood - Skin Skin Exam: Normal Color, Warm Results - Vital Signs Recent Vital Signs: Last Vital Signs Temp 97.6 F 12/30/17 15:45 Pulse 74 12/30/17 15:45 Resp 20 12/30/17 15:45 BP 125/60 12/30/17 15:45 Pulse Ox 99 12/30/17 15:45 - Labs Result Diagrams: 12/28/17 13:34 12/28/17 13:34 Labs: Laboratory Results - last 24 hr 12/29/17 12/30/17 12/30/17 21:23 06:11 11:23 POC Glucose (mg/dL) 241 H 101 174 H 12/30/17 16:33 POC Glucose (mg/dL) 128 H Assessment & Plan - Assessment and Plan (Free Text) Assessment: > DM brittle poorly controlled and hx of non-compliance > HTN is chronic and stable; with hx of non-compliance and sporadic lability > ESRD on HD with hx of non-compliance and missed sessions > Recurrent anemia and hx of GI bleed > Aflutter paroxysmal > chronic CAD hx of failed bypass, prior PCI and small diffuse secondary vessels > PVD s/p bilateral BKA due to recurrent infections and progressive gangrene and non-healing ulcers > Legally blind > chronic recurrent Chest wall pains/neuropathy > Recurrent anemia and GI bleed in past and present: deemed not a good candidate for agressive anticoagulation Coronary artery disease s/p CABG and subsequent PCI all grafts are closed > He remains with preserved LV function and advanced diastolic dysfunction despite diffuse small vessel CAD (too small for PCI) (Last echo [facility] 12/2017) > EKG: hx of parox Aflutter, chronic LVH with strain ---> Now Aflutter 2:1 with IVCD and chronic lateral St changes > CXR: pleural effusion, mild congestion, alveolar infiltrates > Medical therapy remains his most important and sole treatment option at this stage of chronic CAD. He unfortunately is not a candidate for any surgical or percutaneous therapy. Parox AFIB/FLUTTER > He has had hx of atrial catheter related thrombus in past ---> he was challenged with AC on many occasions but due to GI bleed deemed unsafe.. He has known documented hx of parx AFLUTTER/AFIB Amiodarone HCl (Cordarone) 200 mg PO DAILY [facility] Amlodipine Besylate (Norvasc) 10 mg PO DAILY [facility] Aspirin (Aspirin Chewable) 81 mg PO DAILY [facility] Carvedilol (Coreg) 25 mg PO BID [facility] Isosorbide Mononitrate (Imdur) 60 mg PO DAILY [facility] Pantoprazole Sodium (Protonix Ec Tab) 20 mg PO DAILY [facility] Ranolazine (Ranexa) 500 mg PO BID [facility] Rosuvastatin Calcium (Crestor) 10 mg PO HS [facility] -----------> Titrate these meds as tolerated to achieve optimal BP and HR control. (<120/80 and HR <65). ESRD Cont HD to maintain volume status
[2017-12-30] MEDS: (Lantus) Insulin Glargine, Recombinant SC SCH (21:51)
[2017-12-31] MEDS: Albuterol-Ipratrop 3 mg / 0.5 (3 ml) UD IH SCH ×4 (03:03→15:39)
[2017-12-31] MEDS: (Novolin R) Insulin Human Regular 100 units/ml vial SC SCH ×3 (07:31→18:22)
[2017-12-31] MEDS: Multivitamin Vitamin B Complex (Nephro-Vite) Tab PO SCH (07:59)
--- NOTE | 2017-12-31 10:05 | CP.PCM.PN ---
Subjective - Date & Time of Evaluation Date of Evaluation: 12/31/17 Time of Evaluation: 10:04 - Subjective Subjective: No CP or SOB No fevers or chills Resting comfortably Objective - Vital Signs/Intake and Output Vital Signs (last 24 hours): Temp Pulse Resp BP Pulse Ox 97.5 F L 63 21 156/76 H 98 12/31/17 08:41 12/31/17 08:41 12/31/17 08:41 12/31/17 08:41 12/31/17 08:41 Intake and Output: 12/31/17 12/31/17 06:59 18:59 Intake Total 100 Balance 100 - Medications Medications: Current Medications Albuterol/Ipratropium (Duoneb 3 Mg/0.5 Mg (3 Ml) Ud) 3 ml IH RQ4 [facility] Last Admin: 12/31/17 08:57 Dose: Not Given Amiodarone HCl (Cordarone) 200 mg PO DAILY [facility] Last Admin: 12/30/17 11:00 Dose: Not Given Amlodipine Besylate (Norvasc) 10 mg PO DAILY [facility] Last Admin: 12/30/17 11:24 Dose: Not Given Aspirin (Aspirin Chewable) 81 mg PO DAILY [facility] Last Admin: 12/30/17 10:29 Dose: 81 mg Calcium Carbonate (Oscal) 500 mg PO BID [facility] Last Admin: 12/30/17 18:30 Dose: 500 mg Carvedilol (Coreg) 25 mg PO BID [facility] Last Admin: 12/30/17 18:30 Dose: 25 mg Docusate Sodium (Colace) 100 mg PO BID PRN PRN Reason: Constipation Last Admin: 12/30/17 21:47 Dose: 100 mg Ergocalciferol (Drisdol 50,000 Intl Units Cap) 1 cap PO Q7D [facility] Last Admin: 12/28/17 13:41 Dose: Not Given Hydromorphone HCl (Dilaudid) 2 mg PO Q6H PRN PRN Reason: Pain Last Admin: 12/30/17 10:28 Dose: 2 mg Insulin Glargine (Lantus) 10 unit SC HS [facility] [place] Last Admin: 12/30/17 21:51 Dose: 10 units Insulin Human Regular (Novolin R) 0 unit SC ACHS [facility] [place] PRN Reason: Protocol Last Admin: 12/31/17 07:31 Dose: Not Given Isosorbide Mononitrate (Imdur) 60 mg PO DAILY [facility] [place] Last Admin: 12/30/17 11:24 Dose: Not Given Levetiracetam (Keppra) 500 mg PO BID [facility] [place] Last Admin: 12/30/17 18:30 Dose: 500 mg Montelukast Sodium (Singulair) 10 mg PO [facility] Last Admin: 12/30/17 21:45 Dose: 10 mg Pantoprazole Sodium (Protonix Ec Tab) 20 mg PO DAILY [facility] Last Admin: 12/30/17 10:30 Dose: 20 mg Ranolazine (Ranexa) 500 mg PO BID [facility] [place] Last Admin: 12/30/17 18:00 Dose: 500 mg Rosuvastatin Calcium (Crestor) 10 mg PO [facility] Last Admin: 12/30/17 21:46 Dose: 10 mg Sertraline HCl (Zoloft) 50 mg PO [facility] Last Admin: 12/30/17 21:46 Dose: 50 mg Valproate Sodium (Depakene Cap) 250 mg PO QID [facility] Last Admin: 12/30/17 21:48 Dose: 250 mg Vitamin B Complex/Vit C/Folic Acid (Nephro-Courtney) 1 tab PO DAILY@0800 [facility] Last Admin: 12/31/17 07:59 Dose: 1 tab - Labs Labs: 12/28/17 13:34 12/28/17 13:34 PT 14.5 SECONDS (9.7-12.2) H 12/28/17 13:34 INR 1.3 12/28/17 13:34 APTT 179 SECONDS (21-34) H* 12/28/17 13:34 - Constitutional Appears: No Acute Distress - Head Exam Head Exam: ATRAUMATIC, NORMAL INSPECTION, NORMOCEPHALIC - Eye Exam Eye Exam: absent: Scleral icterus - ENT Exam ENT Exam: Mucous Membranes Moist, Normal Oropharynx - Neck Exam Neck Exam: absent: Tenderness - Respiratory Exam Respiratory Exam: Clear to Ausculation Bilateral. absent: Wheezes - Cardiovascular Exam Cardiovascular Exam: REGULAR RHYTHM, +S1, +S2, Murmur. absent: Gallop, Rubs - GI/Abdominal Exam GI & Abdominal Exam: Normal Bowel Sounds. absent: Organomegaly - Extremities Exam Extremities Exam: absent: Normal Inspection (b/l bka) - Back Exam Back Exam: NORMAL INSPECTION - Neurological Exam Neurological Exam: Alert, Awake, Oriented x3 - Psychiatric Exam Psychiatric exam: Normal Affect, Normal Mood - Skin Skin Exam: Normal Color, Warm Assessment and Plan - Assessment and Plan (Free Text) Assessment: > DM brittle poorly controlled and hx of non-compliance > HTN is chronic and stable; with hx of non-compliance and sporadic lability > ESRD on HD with hx of non-compliance and missed sessions > Recurrent anemia and hx of GI bleed > Aflutter paroxysmal > chronic CAD hx of failed bypass, prior PCI and small diffuse secondary vessels > PVD s/p bilateral BKA due to recurrent infections and progressive gangrene and non-healing ulcers > Legally blind > chronic recurrent Chest wall pains/neuropathy > Recurrent anemia and GI bleed in past and present: deemed not a good candidate for agressive anticoagulation Coronary artery disease s/p CABG and subsequent PCI all grafts are closed > He remains with preserved LV function and advanced diastolic dysfunction despite diffuse small vessel CAD (too small for PCI) (Last echo [facility] 12/2017) > EKG: hx of parox Aflutter, chronic LVH with strain ---> Now Aflutter 2:1 with IVCD and chronic lateral St changes > CXR: pleural effusion, mild congestion, alveolar infiltrates > Medical therapy remains his most important and sole treatment option at this stage of chronic CAD. He unfortunately is not a candidate for any surgical or percutaneous therapy. Parox AFIB/FLUTTER > He has had hx of atrial catheter related thrombus in past ---> he was challenged with AC on many occasions but due to GI bleed deemed unsafe.. He has known documented hx of parx AFLUTTER/AFIB Amiodarone HCl (Cordarone) 200 mg PO DAILY [facility] Amlodipine Besylate (Norvasc) 10 mg PO DAILY [facility] Aspirin (Aspirin Chewable) 81 mg PO DAILY [facility] Carvedilol (Coreg) 25 mg PO BID [facility] Isosorbide Mononitrate (Imdur) 60 mg PO DAILY [facility] Pantoprazole Sodium (Protonix Ec Tab) 20 mg PO DAILY [facility] Ranolazine (Ranexa) 500 mg PO BID [facility] Rosuvastatin Calcium (Crestor) 10 mg PO HS [facility] -----------> Titrate these meds as tolerated to achieve optimal BP and HR control. (<120/80 and HR <65). ESRD Cont HD to maintain volume status
[2017-12-31] MEDS: Ranolazine 500 mg Extended Release Tablets PO SCH ×2 (10:08→18:21)
[2017-12-31] MEDS: Pantoprazole 20 mg EC Tab PO SCH (10:08)
--- NOTE | 2017-12-31 10:19 | CP.PCM.PN ---
Subjective - Date & Time of Evaluation Date of Evaluation: 12/31/17 Time of Evaluation: 10:17 - Subjective Subjective: has diarehea 2 adi no pain no sob Objective - Vital Signs/Intake and Output Vital Signs (last 24 hours): Temp Pulse Resp BP Pulse Ox 97.5 F L 63 21 156/76 H 98 12/31/17 08:41 12/31/17 08:41 12/31/17 08:41 12/31/17 08:41 12/31/17 08:41 Intake and Output: 12/31/17 12/31/17 06:59 18:59 Intake Total 100 Balance 100 - Medications Medications: Current Medications Albuterol/Ipratropium (Duoneb 3 Mg/0.5 Mg (3 Ml) Ud) 3 ml IH RQ4 [facility] Last Admin: 12/31/17 08:57 Dose: Not Given Amiodarone HCl (Cordarone) 200 mg PO DAILY [facility] Last Admin: 12/30/17 11:00 Dose: Not Given Amlodipine Besylate (Norvasc) 10 mg PO DAILY [facility] Last Admin: 12/31/17 10:07 Dose: Not Given Aspirin (Aspirin Chewable) 81 mg PO DAILY [facility] Last Admin: 12/30/17 10:29 Dose: 81 mg Calcium Carbonate (Oscal) 500 mg PO BID [facility] Last Admin: 12/31/17 10:08 Dose: 500 mg Carvedilol (Coreg) 25 mg PO BID [facility] Last Admin: 12/30/17 18:30 Dose: 25 mg Docusate Sodium (Colace) 100 mg PO BID PRN PRN Reason: Constipation Last Admin: 12/30/17 21:47 Dose: 100 mg Ergocalciferol (Drisdol 50,000 Intl Units Cap) 1 cap PO Q7D [facility] Last Admin: 12/28/17 13:41 Dose: Not Given Hydromorphone HCl (Dilaudid) 2 mg PO Q6H PRN PRN Reason: Pain Last Admin: 12/30/17 10:28 Dose: 2 mg Insulin Glargine (Lantus) 10 unit SC HS [facility] Last Admin: 12/30/17 21:51 Dose: 10 units Insulin Human Regular (Novolin R) 0 unit SC [facility] PRN Reason: Protocol Last Admin: 12/31/17 07:31 Dose: Not Given Isosorbide Mononitrate (Imdur) 60 mg PO DAILY [facility] Last Admin: 12/30/17 11:24 Dose: Not Given Levetiracetam (Keppra) 500 mg PO BID [facility] Last Admin: 12/31/17 10:07 Dose: 500 mg Loperamide HCl (Imodium) 2 mg PO QID PRN PRN Reason: Diarrhea Montelukast Sodium (Singulair) 10 mg PO [facility] Last Admin: 12/30/17 21:45 Dose: 10 mg Pantoprazole Sodium (Protonix Ec Tab) 20 mg PO DAILY [facility] Last Admin: 12/31/17 10:08 Dose: 20 mg Ranolazine (Ranexa) 500 mg PO BID [facility] Last Admin: 12/31/17 10:08 Dose: 500 mg Rosuvastatin Calcium (Crestor) 10 mg PO [facility] Last Admin: 12/30/17 21:46 Dose: 10 mg Sertraline HCl (Zoloft) 50 mg PO [facility] Last Admin: 12/30/17 21:46 Dose: 50 mg Valproate Sodium (Depakene Cap) 250 mg PO QID [facility] Last Admin: 12/31/17 10:07 Dose: 250 mg Vitamin B Complex/Vit C/Folic Acid (Nephro-Courtney) 1 tab PO DAILY@0800 [facility] Last Admin: 12/31/17 07:59 Dose: 1 tab - Labs Labs: 12/28/17 13:34 12/28/17 13:34 PT 14.5 SECONDS (9.7-12.2) H 12/28/17 13:34 INR 1.3 12/28/17 13:34 APTT 179 SECONDS (21-34) H* 12/28/17 13:34 - Constitutional Appears: Well - Head Exam Head Exam: ATRAUMATIC - Eye Exam Eye Exam: Conjunctival injection - ENT Exam ENT Exam: Mucous Membranes Moist - Neck Exam Neck Exam: Full ROM - Respiratory Exam Respiratory Exam: Clear to Ausculation Bilateral - Cardiovascular Exam Cardiovascular Exam: REGULAR RHYTHM - GI/Abdominal Exam GI & Abdominal Exam: Normal Bowel Sounds - Rectal Exam Rectal Exam: NORMAL INSPECTION - Extremities Exam Extremities Exam: Normal Inspection - Back Exam Back Exam: NORMAL INSPECTION - Psychiatric Exam Psychiatric exam: Normal Affect - Skin Skin Exam: Pallor Assessment and Plan - Assessment and Plan (Free Text) Assessment: diarhea dm copd cad esrf stable will d/c home with home care Plan: d/c
--- NOTE | 2017-12-31 15:31 | CP.PCM.PN ---
Subjective - Date & Time of Evaluation Date of Evaluation: 12/31/17 Time of Evaluation: 15:30 - Subjective Subjective: Renal Note Pt seen and examined labs and vitals reviewed plan for HD today as ordered Please call if any Qs Thanks Eric Temple Objective - Vital Signs/Intake and Output Vital Signs (last 24 hours): Temp Pulse Resp BP Pulse Ox 98 F 92 H 21 143/76 98 12/31/17 14:00 12/31/17 14:00 12/31/17 08:41 12/31/17 14:40 12/31/17 08:41 Intake and Output: 12/31/17 12/31/17 06:59 18:59 Intake Total 100 Balance 100 - Medications Medications: Current Medications Albuterol/Ipratropium (Duoneb 3 Mg/0.5 Mg (3 Ml) Ud) 3 ml IH RQ4 [facility] Last Admin: 12/31/17 13:59 Dose: Not Given Amiodarone HCl (Cordarone) 200 mg PO DAILY [facility] Last Admin: 12/31/17 11:46 Dose: Not Given Amlodipine Besylate (Norvasc) 10 mg PO DAILY [facility] Last Admin: 12/31/17 10:07 Dose: Not Given Aspirin (Aspirin Chewable) 81 mg PO DAILY [facility] Last Admin: 12/31/17 11:46 Dose: Not Given Calcium Carbonate (Oscal) 500 mg PO BID [facility] Last Admin: 12/31/17 10:08 Dose: 500 mg Carvedilol (Coreg) 25 mg PO BID [facility] Last Admin: 12/31/17 11:46 Dose: Not Given Docusate Sodium (Colace) 100 mg PO BID PRN PRN Reason: Constipation Last Admin: 12/30/17 21:47 Dose: 100 mg Ergocalciferol (Drisdol 50,000 Intl Units Cap) 1 cap PO Q7D [facility] Last Admin: 12/28/17 13:41 Dose: Not Given Hydromorphone HCl (Dilaudid) 2 mg PO Q6H PRN PRN Reason: Pain Last Admin: 12/30/17 10:28 Dose: 2 mg Insulin Glargine (Lantus) 10 unit SC HS [facility] Last Admin: 12/30/17 21:51 Dose: 10 units Insulin Human Regular (Novolin R) 0 unit SC ACHS [facility] PRN Reason: Protocol Last Admin: 12/31/17 11:47 Dose: Not Given Isosorbide Mononitrate (Imdur) 60 mg PO DAILY [facility] Last Admin: 12/31/17 11:47 Dose: Not Given Levetiracetam (Keppra) 500 mg PO BID [facility] Last Admin: 12/31/17 10:07 Dose: 500 mg Loperamide HCl (Imodium) 2 mg PO QID PRN PRN Reason: Diarrhea Montelukast Sodium (Singulair) 10 mg PO [facility] Last Admin: 12/30/17 21:45 Dose: 10 mg Pantoprazole Sodium (Protonix Ec Tab) 20 mg PO DAILY [facility] Last Admin: 12/31/17 10:08 Dose: 20 mg Ranolazine (Ranexa) 500 mg PO BID [facility] Last Admin: 12/31/17 10:08 Dose: 500 mg Rosuvastatin Calcium (Crestor) 10 mg PO [facility] Last Admin: 12/30/17 21:46 Dose: 10 mg Sertraline HCl (Zoloft) 50 mg PO [facility] Last Admin: 12/30/17 21:46 Dose: 50 mg Valproate Sodium (Depakene Cap) 250 mg PO QID [facility] Last Admin: 12/31/17 14:17 Dose: Not Given Vitamin B Complex/Vit C/Folic Acid (Nephro-Courtney) 1 tab PO DAILY@0800 [facility] Last Admin: 12/31/17 07:59 Dose: 1 tab - Labs Labs: 12/28/17 13:34 12/28/17 13:34 PT 14.5 SECONDS (9.7-12.2) H 12/28/17 13:34 INR 1.3 12/28/17 13:34 APTT 179 SECONDS (21-34) H* 12/28/17 13:34
[2017-12-31 16:31] VITALS: RESP 16
[2017-12-31 19:13] VITALS: BP 168/87; PULSE 76; TEMP 97.8; O2SAT 96
--- NOTE | 2018-01-01 08:47 | CARD ---
APPROVED REPORT EKG Measurement Heart [id number] <Conclusion> Sinus tachycardia with short [place] Inferior infarct, possibly acute T wave abnormality, consider lateral ischemia ACUTE [place] / STEMI Consider right ventricular involvement in acute inferior infarct Abnormal ECG
== END 2017-12-31 20:30 | disposition home or self-care (01) ==
LOC: C.ER 09:21 → C.9E 11:36 → C.6T 18:27
PROVIDERS: ADMIT Internal Medicine Pulmonary Disease; ATTEND Internal Medicine
DX: I13.2 Hypertensive heart and chronic kidney disease with heart failure and with stage 5 chronic kidney disease, or end stage renal disease (principal); I48.0 Paroxysmal atrial fibrillation; I48.92 Unspecified atrial flutter; I25.10 Atherosclerotic heart disease of native coronary artery without angina pectoris; J44.9 Chronic obstructive pulmonary disease, unspecified; I50.9 Heart failure, unspecified; N18.6 End stage renal disease; Z79.4 Long term (current) use of insulin; Z86.73 Personal history of transient ischemic attack (TIA), and cerebral infarction without residual deficits; Z89.512 Acquired absence of left leg below knee; Z89.612 Acquired absence of left leg above knee; Z91.14 Patient's other noncompliance with medication regimen; H54.8 Legal blindness, as defined in USA; G40.909 Epilepsy, unspecified, not intractable, without status epilepticus; F02.80 Dementia in other diseases classified elsewhere, unspecified severity, without behavioral disturbance, psychotic disturbance, mood disturbance, and anxiety; E11.51 Type 2 diabetes mellitus with diabetic peripheral angiopathy without gangrene; E87.5 Hyperkalemia; E11.22 Type 2 diabetes mellitus with diabetic chronic kidney disease; E11.319 Type 2 diabetes mellitus with unspecified diabetic retinopathy without macular edema
CPT/HCPCS: 36415; 71045; 80053; 82550; 82553; 82948; 84484; 85025; 85610; 85730; 87045; 87230; 93005; 94640; 96374; 99285; G0257; G0378; J0360; J0610; J1644

== ENCOUNTER 2018-01-07 19:00 | Inpatient (IN) | payer OTHER ==
[2018-01-07 19:00] VITALS: PULSE 66; BMI 18.8
--- NOTE | 2018-01-07 20:32 | C.PDOC ---
History Of Present Illness 37 year old male presents to the emergency department after being sent here by a dialysis center status-post dialysis that he received today. Patient complains of cough and shortness of breath. Patient is a bilateral lower extremity amputee. Chief Complaint (Nursing): Shortness Of Breath History Per: Patient Onset/Duration Of Symptoms: Hrs Current Symptoms Are (Timing): Still Present Past Medical History Reviewed: Historical Data, Nursing Documentation, Vital Signs Vital Signs: Last Vital Signs Temp 99.7 F H 01/07/18 19:19 Pulse 99 H 01/07/18 23:00 Resp 14 01/07/18 23:00 BP 100/60 01/07/18 23:00 Pulse Ox 95 01/07/18 23:48 - Medical History PMH: Alzheimer's Disease, Anemia, Anxiety, Arthritis, Asthma, Atrial Fibrillation, Bronchitis, CAD, Cardia Arrhythmia, CHF, COPD, CVA, Depression, Diabetes, Deep Vein Thrombosis, Gastritis, Gastrointestinal Ulcer, Gall Bladder Disease, HTN, Hypercholesterolemia, Hypothyroidism, Pneumonia, End Stage Renal Disease, Chronic Kidney Disease, Seizures Denies: Hyperthyroidism, Kidney Stones, Sexually Transmitted Disease Surgical History: CABG (12/2009), Cholecystectomy (2011), Coronary Stent - [facility] (11/15/17) ABDOMINAL WALL SINOGRAM (12/31/13) C.A.T. SCAN OF ABDOMEN (10/31/13) CENTRAL VENOUS CATHETER PLACEMENT WITH GUIDANCE (02/10/15) CHANGE OTHER DEVICE IN TRUNK SUBCU/FASCIA, EXAMINATION GRADER APPROACH (06/01/17) DILATE R ANT TIB ART W DRUG-ELUT INTRALUM, PERC (08/12/15) DILATION OF LEFT FEMORAL ARTERY, PERCUTANEOUS APPROACH (07/04/16) DILATION OF RIGHT FEMORAL ARTERY, PERCUTANEOUS APPROACH (08/12/15) DILATION OF RIGHT POPLITEAL ARTERY, PERCUTANEOUS APPROACH (08/12/15) DX ULTRASOUND-HEART (01/05/13) ENTERAL INFUSION OF CONCENTRATED NUT. SUBSTANCES (06/28/13) EXCIS DEBRIDE OF WOUND, INFECT, OR BURN (08/03/14) EXCISION OF STOMACH, ENDO, DIAGN (03/03/17) EXTIRPATION OF MATTER FROM L FEM ART, PERC APPROACH (07/04/16) EXTIRPATION OF MATTER FROM R FEM ART, PERC APPROACH (08/12/15) EXTIRPATION OF MATTER FROM R POPL ART, PERC APPROACH (08/12/15) FLUOROSCOPY OF L LOW EXTREM ART USING L OSM CONTRAST (08/12/15) FLUOROSCOPY OF R LOW EXTREM ART USING L OSM CONTRAST (08/12/15) FLUOROSCOPY OF RIGHT JUGULAR VEINS, GUIDANCE (06/01/17) FREE SKIN GRAFT NEC (08/03/14) HEAD SOFT TISS X-RAY NEC (04/15/13) HEMODIALYSIS (04/28/15) INCIS W REM OF FORIEGN BODY OR DEV FROM SKIN & SUBCUT TISSUE (08/08/13) INSERT INFUSION DEV IN R INT JUGULAR VEIN, PERC (06/01/17) INSERTION OF INFUSION DEV INTO R SUBCLAV VEIN, PERC APPROACH (01/19/16) INSERTION OF INFUSION DEV INTO SUP VENA CAVA, PERC APPROACH (05/17/17) INSPECTION OF UPPER INTESTINAL TRACT, ENDO (03/03/17) INTRODUCE OF OTH THROMBOLYTIC INTO PERIPH ART, PERC APPROACH (08/12/15) LAPAROSCOPIC CHOLECYSTECTOMY (09/21/13) LOC EXC LES METATAR/TAR (06/01/14) PACKED CELL TRANSFUSION (06/01/14) PERCUTAN LIVER ASPIRAT (12/31/13) PERFORMANCE OF URINARY FILTRATION, MULTIPLE (05/17/17) PERFORMANCE OF URINARY FILTRATION, SINGLE (12/18/16) SKIN & SUBQ INCISION NEC (10/24/14) TETANUS TOXOID ADMINIST (06/13/14) TRANSFUSE NONAUT RED BLOOD CELLS IN PERIPH VEIN, PERC (04/09/17) ULTRASONOGRAPHY OF RIGHT AND LEFT HEART (04/09/17) ULTRASONOGRAPHY OF SUPERIOR VENA CAVA, GUIDANCE (02/20/17) VENOUS CATHETERIZATION FOR RENAL DIALYSIS (08/08/13) VENOUS CATHETERIZATION NEC (04/30/13) Family History: States: No Known Family Hx - Social History Hx Tobacco Use: No Hx Alcohol Use: No Hx Substance Use: No - Immunization History Hx Tetanus Toxoid Vaccination: Yes Hx Influenza Vaccination: Yes Hx Pneumococcal Vaccination: Yes Review Of Systems Except As Marked, All Systems Reviewed And Found Negative. Respiratory: Positive for: Cough, Shortness of Breath Physical Exam - Physical Exam Appears: No Acute Distress Cardiovascular: Murmur (83/6) Respiratory: Rhonchi ED Course And Treatment - Laboratory Results Result Diagrams: 01/07/18 20:58 01/07/18 20:58 O2 Sat by Pulse Oximetry: 95 (RA) Pulse Ox Interpretation: Normal - CT Scan/US Chest Other Rad Studies (CT/US): Read By Radiologist, Radiology Report Reviewed CT/US Interpretation: 1. Probable multifocal pneumonia. Followup to resolution to exclude underlying pathology. 2. Probable mild interstitial edema. Clinical correlation is needed. 3. Incidental/non-acute findings are described above. Medical Decision Making Medical Decision Making: Plan: CT Chest w/o Contrast EKG BNP CMP Troponin CBC D-Dimer Disposition Discussed With : Sybil Li Doctor Will See Patient In The: Hospital Counseled Patient/Family Regarding: Diagnosis - Disposition Disposition: HOSPITALIZED Disposition Time: 23:52 Condition: STABLE Forms: [employer] (Bengali) - POA Present On Arrival: None - Clinical Impression Clinical Impression: ESRD (end stage renal disease), Pneumonia - Scribe Statement The provider has reviewed the documentation as recorded by the Scribe (Ha Lane) Provider Attestation: All medical record entries made by the Scribe were at my direction and personally dictated by me. I have reviewed the chart and agree that the record accurately reflects my personal performance of the history, physical exam, medical decision making, and the department course for this patient. I have also personally directed, reviewed, and agree with the discharge instructions and disposition.
[2018-01-07 21:01] LABS: BASO # 0.1 K/uL (0.0-0.2); BASO % 0.6 % (0.0-2.0); EOS # 0.2 K/uL (0.0-0.7); EOS % 2.3 % (0.0-4.0); HEMOGLOBIN 13.8 g/dL (12.0-18.0); LYMPH # 1.9 K/uL (1.0-4.3); LYMPH % 19.4 % (20.0-40.0); MEAN CORPUSCULAR HEMOGLOBIN 28.6 pg (27.0-31.0); MEAN CORPUSCULAR HGB CONC 33.3 g/dL (33.0-37.0); MEAN PLATELET VOLUME 9.2 fL (7.2-11.7); MONO # 0.8 K/uL (0.0-0.8); MONO % 8.6 % (0.0-10.0); NEUT # 6.6 K/uL (1.8-7.0); NEUT % 69.1 % (50.0-75.0); NRBC % 0.1 % (0.0-2.0); RBC 4.81 Mil/uL (4.40-5.90); WHITE BLOOD COUNT 9.5 K/uL (4.8-10.8)
[2018-01-07 21:16] LABS: ALBUMIN 4.5 g/dL (3.5-5.0); CALCIUM 9.6 mg/dl (8.6-10.4)
[2018-01-07 21:32] LABS: TROPONIN I 0.231 ng/mL (0.00-0.120)
--- NOTE | 2018-01-07 22:42 | CT ---
EXAM: CT Chest Without Intravenous Contrast CLINICAL HISTORY: 37 years old, male; Signs and symptoms; Shortness of breath; Additional info: SOB TECHNIQUE: Axial computed tomography images of the chest without intravenous contrast. All CT scans at this facility use one or more dose reduction techniques, viz.: automated exposure control; ma/kV adjustment per patient size (including targeted exams where dose is matched to indication; i.e. head); or iterative reconstruction technique. Coronal and sagittal reformatted images were created and reviewed. COMPARISON: CR - CHEST ONE VIEW 2016-02-25 12:41 FINDINGS: Limitations: Lack of intravenous contrast. Motion artifact - mild to moderate. Lungs: Mosaic pattern of lung parenchyma with scattered mild groundglass opacities. Minimal interlobular septal thickening. Mild atelectasis/scarring. Scattered [id number] patchy nodular and confluent airspace opacities, most pronounced left lower lobe. Pleural space: Mild pleural thickening, left greater than right. No significant pleural effusion. No pneumothorax. Heart: Mild cardiomegaly. No significant pericardial effusion. Coronary artery calcifications. Bones/joints: Median sternotomy. Soft tissues: Mild gynecomastia. Vasculature: Extensive atherosclerotic disease. No aneurysm. Lymph nodes: Several subcentimeter short axis axillary lymph nodes, right greater than left. Gallbladder and bile ducts: Cholecystectomy. Kidneys and ureters: Mild atrophy of kidneys. Tubes, lines and devices: Central venous catheter, tip within proximal IVC. IMPRESSION: 1. Probable multifocal pneumonia. Followup to resolution to exclude underlying pathology. 2. Probable mild interstitial edema. Clinical correlation is needed. 3. Incidental/non-acute findings are described above.
[2018-01-07] MEDS ORDERED: cefTRIAXone IV 1 gm in Dextros 50 ML IVPB ONE (23:40)
[2018-01-07] MEDS ORDERED: Azithromycin 500mg/250ML NS 500 MG/250 ML BAG IV STA (23:41)
[2018-01-08] MEDS ORDERED: LIDOCAINE 3% TOP PRN ×2 (00:06→10:35)
[2018-01-08] MEDS ORDERED: Ergocalciferol 50,000 Intl Units Cap PO SCH (00:15)
[2018-01-08] MEDS ORDERED: cefTRIAXone IV 1 gm in Dextros 50 ML IVPB ONE (00:29)
[2018-01-08] MEDS ORDERED: Albuterol-Ipratrop 3 mg / 0.5 (3 ml) UD IH SCH (04:00)
[2018-01-08] MEDS ORDERED: Albuterol-Ipratrop 3 mg / 0.5 (3 ml) UD ONE ×2 (06:55→11:12)
[2018-01-08] MEDS ORDERED: Sodium Chloride 0.9% 250 ML IV ONE (07:04)
[2018-01-08] MEDS ORDERED: Lactulose 10 gm/15 ml (Rectal Use) PR SCH (10:00)
[2018-01-08] MEDS: Azithromycin 500 MG in Sodium Chloride 0.9% 250 ML IVPB SCH (11:07)
[2018-01-08] MEDS: Albuterol-Ipratrop 3 mg / 0.5 (3 ml) UD IH SCH ×3 (11:10→20:01)
[2018-01-08] MEDS: (Novolin R) Insulin Human Regular 100 units/ml vial SC SCH ×4 (11:40→21:52)
[2018-01-08] MEDS: Ranolazine 500 mg Extended Release Tablets PO SCH ×2 (11:58→17:37)
[2018-01-08] MEDS: Pantoprazole 20 mg EC Tab PO SCH (11:58)
[2018-01-08] MEDS ORDERED: (Novolin R) Insulin Human Regular 100 units/ml vial ONE (12:08)
--- NOTE | 2018-01-08 13:44 | CP.PCM.HP ---
History of Present Illness - History of Present Illness History of Present Illness: pt came to er has cough and fever 102 for 2days geting worse sob and chest pain has pnumonia in xray and triponin is v hi Present on Admission - Present on Admission Any Indicators Present on Admission: No History of Uncontrolled Diabetes: Yes Review of Systems - Review of Systems Systems not reviewed;Unavailable: Acuity of Condition - Constitutional Constitutional: Fatigue, Fever - EENT Eyes: Blind Spots Ears: As Per HPI Nose/Mouth/Throat: As Per HPI - Cardiovascular Cardiovascular: Chest Pain, Chest Pain at Rest, Dyspnea - Respiratory Respiratory: Cough, Dyspnea, Chest Congestion - Gastrointestinal Gastrointestinal: Diarrhea - Genitourinary Genitourinary: As Per HPI - Reproductive: Male Reproductive:Male: As Per HPI - Musculoskeletal Musculoskeletal: As Per HPI - Integumentary Integumentary: As Per HPI - Neurological Neurological: As Per HPI - Psychiatric Psychiatric: As Per HPI - Endocrine Additional Comments: hina [id number] Past Patient History - Infectious Disease Hx of Infectious Diseases: None - Tetanus Immunizations Tetanus Immunization: >10 years Ago - Past Medical History & Family History Past Medical History?: Yes - Past Social History Smoking Status: Never Smoked - CARDIAC Hx Atrial Fibrillation: Yes Hx Cardia Arrhythmia: Yes Hx Congestive Heart Failure: Yes Hx Hypercholesterolemia: Yes Hx Hypertension: Yes - PULMONARY Hx Asthma: Yes Hx Bronchitis: Yes Hx Chronic Obstructive Pulmonary Disease (COPD): Yes Hx Pneumonia: Yes - NEUROLOGICAL Hx Alzheimer's Disease: Yes Hx Seizures: Yes - HEENT Hx HEENT Problems: Yes Hx Blind: Yes (legally blind) Hx Cataracts: Yes - RENAL Hx Chronic Kidney Disease: Yes Hx Kidney Stones: No - ENDOCRINE/METABOLIC Hx Hyperthyroidism: No Hx Hypothyroidism: Yes - HEMATOLOGICAL/ONCOLOGICAL Hx Anemia: Yes - INTEGUMENTARY Hx Dermatological Problems: No - MUSCULOSKELETAL/RHEUMATOLOGICAL Hx Arthritis: Yes Hx Falls: Yes - GASTROINTESTINAL Hx Gall Bladder Disease: Yes Hx Gastritis: Yes - GENITOURINARY/GYNECOLOGICAL Hx Sexually Transmitted Disorders: No - PSYCHIATRIC Hx Anxiety: Yes Hx Depression: Yes Hx Substance Use: No - SURGICAL HISTORY Hx Cholecystectomy: Yes (2011) 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/2009) Hx Coronary Stent: Yes - ANESTHESIA Hx Anesthesia: Yes Hx Anesthesia Reactions: No Hx Malignant Hyperthermia: No Has any member of the family had a problem w/ anesthesia?: No Meds Allergies/Adverse Reactions: Allergies Allergy/AdvReac Type Severity Reaction Status Date / Time acetaminophen [From Percocet] Allergy RASH Verified 01/07/18 19:26 atenolol Allergy RASH Verified 01/07/18 19:26 digoxin Allergy RASH Verified 01/07/18 19:26 milk Allergy ITCHING Verified 01/07/18 19:26 morphine Allergy RASH Verified 01/07/18 19:26 oxycodone HCl [From Percocet] Allergy RASH Verified 01/07/18 19:26 Physical Exam - Constitutional Appears: In Acute Distress - Head Exam Head Exam: ATRAUMATIC - Eye Exam Eye Exam: Conjunctival injection - ENT Exam ENT Exam: Mucous Membranes Dry - Neck Exam Neck exam: Positive for: Full Rom - Respiratory Exam Respiratory Exam: Decreased Breath Sounds, Rales - Cardiovascular Exam Cardiovascular Exam: REGULAR RHYTHM, +S1, +S2, +S4 - GI/Abdominal Exam GI & Abdominal Exam: Normal Bowel Sounds - Exam Additional comments: [email or web address] - Extremities Exam Additional comments: bilateral amputation - Back Exam Back exam: CVA tenderness (L) - Neurological Exam Neurological exam: Oriented x3 - Psychiatric Exam Psychiatric exam: Normal Affect - Skin Skin Exam: Warm Results - Vital Signs Recent Vital Signs: Last Vital Signs Temp 97.7 F 01/08/18 12:33 Pulse 147 H 01/08/18 12:33 Resp 21 01/08/18 12:33 BP 139/95 H 01/08/18 12:33 Pulse Ox 100 01/08/18 12:33 - Labs Result Diagrams: 01/07/18 20:58 01/07/18 20:58 Labs: Laboratory Results - last 24 hr 01/07/18 01/07/18 01/07/18 20:58 20:58 22:41 WBC 9.5 RBC 4.81 Hgb 13.8 Hct 41.4 MCV 86.0 MCH 28.6 MCHC 33.3 RDW 18.0 H Plt Count 131 MPV 9.2 Neut % (Auto) 69.1 Lymph % (Auto) 19.4 L [place] % (Auto) 8.6 Eos % (Auto) 2.3 Baso % (Auto) 0.6 Neut # (Auto) 6.6 Lymph # (Auto) 1.9 [place] # (Auto) 0.8 Eos # (Auto) 0.2 Baso # (Auto) 0.1 D-Dimer, Quantitative 473 H Sodium 143 Potassium 5.3 H Chloride 96 L Carbon Dioxide 28 Anion Gap 24 H BUN 31 H Creatinine 3.5 H Est GFR ( Amer) 24 Est GFR (Non-Af Amer) 20 POC Glucose (mg/dL) Random Glucose 165 H Calcium 9.6 Total Bilirubin 1.2 AST 34 ALT 22 Alkaline Phosphatase 247 H D Troponin I 0.2310 H* NT-Pro-B Natriuret Pep 19282 H Total Protein 8.9 H Albumin 4.5 Globulin 4.5 H Albumin/Globulin Ratio 1.0 01/07/18 01/08/18 01/08/18 23:33 11:01 12:02 WBC RBC Hgb Hct MCV MCH MCHC RDW Plt Count MPV Neut % (Auto) Lymph % (Auto) [place] % (Auto) Eos % (Auto) Baso % (Auto) Neut # (Auto) Lymph # (Auto) [place] # (Auto) Eos # (Auto) Baso # (Auto) D-Dimer, Quantitative Sodium Potassium Chloride Carbon Dioxide Anion Gap BUN Creatinine Est GFR ( Amer) Est GFR (Non-Af Amer) POC Glucose (mg/dL) 190 H 315 H 336 H Random Glucose Calcium Total Bilirubin AST ALT Alkaline Phosphatase Troponin I NT-Pro-B Natriuret Pep Total Protein Albumin Globulin Albumin/Globulin Ratio Assessment & Plan - Assessment and Plan (Free Text) Assessment: acute pnumonia copd dm esrf cad diarhea Plan: admit and as per orders - Date & Time Date: 01/08/18 Time: 13:49
[2018-01-08] MEDS: Multivitamin Vitamin B Complex (Nephro-Vite) Tab PO SCH (14:21)
--- NOTE | 2018-01-08 15:39 | CP.PCM.CON ---
History of Present Illness - History of Present Illness History of Present Illness: Nephrology Consultation Note: Assessment: Stable Fluid overload/pulmonary congestion, Pneumonia chronic chest pain, A flutter Diabetic chronic Kidney Disease (E11.22) Hypertensive Chronic Kidney Disease (I12.0) End stage renal disease (N18.6) dependence on hemodialysis (Z99.2) (TTS) via AVF Anemia (D64.9), Hyperphosphatemia (E83.39), Secondary Hyperparathyroidism (E21.1 ), HTN (I12.0) CAD s/p CABG, diastolic CHF, parox A flutter/fib, intra-cardiac thrombus, hx of Heparin induced thrombocytopenia, hx of seizure, blindness Plan: pt undergoing dialysis today. But BP at low side SBP 80s to begin with. will not be able to do much UF hence dialysis stopped. Continue with Nephrovite 1 tab/day. next HD tomorrow as per TTS schedule last Hb 13.8 hence no HANNAH at present Continue with phos binders home dose BP control with meds as ordered. Glycemic control, Dialysis consistent diet Further work up/management as per primary team Dose meds/antibiotics (if needed) for ESRD status. Avoid fleets enema/magnesium based laxatives. Thanks for allowing me to participate in care of your patient. Will follow patient with you. Please call if any Qs Dr Eric Temple Office: [phone] Chief Complaint; cough and SOB reason for consult: ESRD HPI: Pt is a 37 y/o transgender with hx of ESRD on hemodialysis (TTS) via permacath, chronic anemia, hyperphosphatemia, secondary hyperparathyroidism, Diabetes Mellitus, hypertension, CAD s/p CABG, diastolic CHF, pA flutter/fib, intra-cardiac thrombus, Heparin induced thrombocytopenia in past presented with complaints of SOB and cough. admitted for pnuemonia. has chronic chest pain, denies palpitation, c/o chronic shortness of breath ROS: All other negative except as in HPI. has loose stool for weeks. denies pain abdomen, anuric. Physical Examination: seen on HD General Appearance: Comfortable, in no acute respiratory distress, co-operative . Vitals reviewed and noted as below Head; Atraumatic, normocephalic ENT: no ulcers no thrush. Tongue is midline. Oropharynx: no rash or ulcers. EYES: Pt is blind both eyes Neck; supple no lymphadenopathy, no thyromegaly or bruit Lungs: Normal respiratory rate/effort. Breath sounds bilateral equal with b/l basal crackles/rale Heart: Normal rate. s1s2 normal. No rub or gallop. Extremities: no edema. No varicose veins. has b/l BKA Neurological: Patient is alert, awake and oriented to person, place and time. No focal deficit. Strength bilateral appropriate and equal Skin: Warm and dry. Normal turgor. No rash. Palpitation: Normal elasticity for age Abdomen: Abdomen is soft. Bowel sounds +. There is no abdominal tenderness, no guarding/rigidity or organomegaly Psych: limited insight and has normal affect/mood MSK: no joint tenderness or swelling. Digits and nails normal, no deformity : kidney or bladder not palpable Access: permacath Labs/imaging reviewed. Past medical history, past surgical history, family history, social history, allergy reviewed and noted as below Family Hx: no hx of CKD. Non contributory Past Patient History - Infectious Disease Hx of Infectious Diseases: None - Tetanus Immunizations Tetanus Immunization: >10 years Ago - Past Medical History & Family History Past Medical History?: Yes - Past Social History Smoking Status: Never Smoked - CARDIAC Hx Atrial Fibrillation: Yes Hx Cardia Arrhythmia: Yes Hx Congestive Heart Failure: Yes Hx Hypercholesterolemia: Yes Hx Hypertension: Yes - PULMONARY Hx Asthma: Yes Hx Bronchitis: Yes Hx Chronic Obstructive Pulmonary Disease (COPD): Yes Hx Pneumonia: Yes - NEUROLOGICAL Hx Alzheimer's Disease: Yes Hx Seizures: Yes - HEENT Hx HEENT Problems: Yes Hx Blind: Yes (legally blind) Hx Cataracts: Yes - RENAL Hx Chronic Kidney Disease: Yes Hx Kidney Stones: No - ENDOCRINE/METABOLIC Hx Hyperthyroidism: No Hx Hypothyroidism: Yes - HEMATOLOGICAL/ONCOLOGICAL Hx Anemia: Yes - INTEGUMENTARY Hx Dermatological Problems: No - MUSCULOSKELETAL/RHEUMATOLOGICAL Hx Arthritis: Yes Hx Falls: Yes - GASTROINTESTINAL Hx Gall Bladder Disease: Yes Hx Gastritis: Yes - GENITOURINARY/GYNECOLOGICAL Hx Sexually Transmitted Disorders: No - PSYCHIATRIC Hx Anxiety: Yes Hx Depression: Yes Hx Substance Use: No - SURGICAL HISTORY Hx Cholecystectomy: Yes (2011) 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/2009) Hx Coronary Stent: Yes - ANESTHESIA Hx Anesthesia: Yes Hx Anesthesia Reactions: No Hx Malignant Hyperthermia: No Has any member of the family had a problem w/ anesthesia?: No Meds Allergies/Adverse Reactions: Allergies Allergy/AdvReac Type Severity Reaction Status Date / Time acetaminophen [From Percocet] Allergy RASH Verified 01/07/18 19:26 atenolol Allergy RASH Verified 01/07/18 19:26 digoxin Allergy RASH Verified 01/07/18 19:26 milk Allergy ITCHING Verified 01/07/18 19:26 morphine Allergy RASH Verified 01/07/18 19:26 oxycodone HCl [From Percocet] Allergy RASH Verified 01/07/18 19:26 - Medications Medications: Current Medications Albuterol/Ipratropium (Duoneb 3 Mg/0.5 Mg (3 Ml) Ud) 3 ml IH RQ4 [facility] Last Admin: 01/08/18 11:10 Dose: 3 ml Amiodarone HCl (Cordarone) 200 mg PO DAILY [facility] Last Admin: 01/08/18 11:50 Dose: 200 mg Amlodipine Besylate (Norvasc) 10 mg PO DAILY [facility] Last Admin: 01/08/18 11:58 Dose: 10 mg Aspirin (Aspirin Chewable) 81 mg PO DAILY [facility] Last Admin: 01/08/18 11:58 Dose: 81 mg Calcium Carbonate (Oscal) 500 mg PO BID [facility] Last Admin: 01/08/18 11:58 Dose: 500 mg Carvedilol (Coreg) 25 mg PO BID [facility] Last Admin: 01/08/18 11:50 Dose: 25 mg Docusate Sodium (Colace) 100 mg PO PRN PRN PRN Reason: Constipation Ergocalciferol (Drisdol 50,000 Intl Units Cap) 1 cap PO Q7D [facility] Hydromorphone HCl (Dilaudid) 1 mg IVP Q6H PRN PRN Reason: Pain, moderate (4-7) Azithromycin 500 mg/ Sodium (Chloride) 250 mls @ 250 mls/hr IVPB DAILY [facility] PRN Reason: Protocol Last Admin: 01/08/18 11:07 Dose: Not Given Ceftriaxone Sodium 1 gm/ (Dextrose) 100 mls @ 50 mls/30 min IVPB DAILY [facility] PRN Reason: Protocol Insulin Glargine (Lantus) 10 unit SC HS [facility] Insulin Human Regular (Novolin R) 0 unit SC ACHS [facility] PRN Reason: Protocol Last Admin: 01/08/18 12:07 Dose: 4 unit Isosorbide Mononitrate (Imdur) 60 mg PO DAILY [facility] Last Admin: 01/08/18 11:51 Dose: 60 mg Lactulose (Enulose) 10 gm PO DAILY PRN Levetiracetam (Keppra) 500 mg PO BID [facility] Last Admin: 01/08/18 11:51 Dose: 500 mg Montelukast Sodium (Singulair) 10 mg PO HS [facility] Pantoprazole Sodium (Protonix Ec Tab) 20 mg PO DAILY [facility] Last Admin: 01/08/18 11:58 Dose: 20 mg Ranolazine (Ranexa) 500 mg PO BID [facility] Last Admin: 01/08/18 11:58 Dose: 500 mg Rosuvastatin Calcium (Crestor) 10 mg PO HS [facility] Sertraline HCl (Zoloft) 50 mg PO DAILY [facility] Last Admin: 01/08/18 11:57 Dose: 50 mg Tramadol HCl (Ultram) 50 mg PO ONCE PRN Last Admin: 01/08/18 11:57 Dose: 50 mg Valproate Sodium (Depakene Cap) 250 mg PO QID [facility] Last Admin: 01/08/18 14:21 Dose: 250 mg Vitamin B Complex/Vit C/Folic Acid (Nephro-Courtney) 1 tab PO 0800 [facility] Last Admin: 01/08/18 14:21 Dose: 1 tab Results - Vital Signs Recent Vital Signs: Last Vital Signs Temp 97.7 F 01/08/18 12:33 Pulse 147 H 01/08/18 12:33 Resp 21 01/08/18 12:33 BP 139/95 H 01/08/18 12:33 Pulse Ox 100 01/08/18 12:33 - Labs Result Diagrams: 01/07/18 20:58 01/07/18 20:58 Labs: Laboratory Results - last 24 hr 01/07/18 01/07/18 01/07/18 20:58 20:58 22:41 WBC 9.5 RBC 4.81 Hgb 13.8 Hct 41.4 MCV 86.0 MCH 28.6 MCHC 33.3 RDW 18.0 H Plt Count 131 MPV 9.2 Neut % (Auto) 69.1 Lymph % (Auto) 19.4 L [place] % (Auto) 8.6 Eos % (Auto) 2.3 Baso % (Auto) 0.6 Neut # (Auto) 6.6 Lymph # (Auto) 1.9 [place] # (Auto) 0.8 Eos # (Auto) 0.2 Baso # (Auto) 0.1 D-Dimer, Quantitative 473 H Sodium 143 Potassium 5.3 H Chloride 96 L Carbon Dioxide 28 Anion Gap 24 H BUN 31 H Creatinine 3.5 H Est GFR ( Amer) 24 Est GFR (Non-Af Amer) 20 POC Glucose (mg/dL) Random Glucose 165 H Calcium 9.6 Total Bilirubin 1.2 AST 34 ALT 22 Alkaline Phosphatase 247 H D Troponin I 0.2310 H* NT-Pro-B Natriuret Pep 63197 H Total Protein 8.9 H Albumin 4.5 Globulin 4.5 H Albumin/Globulin Ratio 1.0 01/07/18 01/08/18 01/08/18 23:33 11:01 12:02 WBC RBC Hgb Hct MCV MCH MCHC RDW Plt Count MPV Neut % (Auto) Lymph % (Auto) [place] % (Auto) Eos % (Auto) Baso % (Auto) Neut # (Auto) Lymph # (Auto) [place] # (Auto) Eos # (Auto) Baso # (Auto) D-Dimer, Quantitative Sodium Potassium Chloride Carbon Dioxide Anion Gap BUN Creatinine Est GFR ( Amer) Est GFR (Non-Af Amer) POC Glucose (mg/dL) 190 H 315 H 336 H Random Glucose Calcium Total Bilirubin AST ALT Alkaline Phosphatase Troponin I NT-Pro-B Natriuret Pep Total Protein Albumin Globulin Albumin/Globulin Ratio
--- NOTE | 2018-01-08 19:09 | CARD ---
APPROVED REPORT EKG Measurement Heart [id number] <Conclusion> Sinus tachycardia Possible Left atrial enlargement Left ventricular hypertrophy with repolarization abnormality Abnormal ECG
[2018-01-08] MEDS: HYDROmorphone 1 mg/ml ISec IVP PRN (20:37)
[2018-01-08] MEDS: (Lantus) Insulin Glargine, Recombinant SC SCH (21:56)
[2018-01-09] MEDS: Albuterol-Ipratrop 3 mg / 0.5 (3 ml) UD IH SCH ×6 (03:06→19:07)
[2018-01-09] MEDS: (Novolin R) Insulin Human Regular 100 units/ml vial SC SCH ×4 (08:05→21:50)
[2018-01-09] MEDS: Multivitamin Vitamin B Complex (Nephro-Vite) Tab PO SCH (08:05)
[2018-01-09] MEDS: HYDROmorphone 1 mg/ml ISec IVP PRN ×2 (09:04→17:56)
--- NOTE | 2018-01-09 11:57 | CP.PCM.PN ---
Subjective - Date & Time of Evaluation Date of Evaluation: 01/09/18 Time of Evaluation: 11:55 - Subjective Subjective: Nephrology Consultation Note: Assessment: Stable Fluid overload/pulmonary congestion, Pneumonia chronic chest pain, A flutter Diabetic chronic Kidney Disease (E11.22) Hypertensive Chronic Kidney Disease (I12.0) End stage renal disease (N18.6) dependence on hemodialysis (Z99.2) (TTS) via AVF Anemia (D64.9), Hyperphosphatemia (E83.39), Secondary Hyperparathyroidism (E21.1 ), HTN (I12.0) CAD s/p CABG, diastolic CHF, parox A flutter/fib, intra-cardiac thrombus, hx of Heparin induced thrombocytopenia, hx of seizure, blindness Plan: pt undergoing dialysis today as per TTS. Continue with Nephrovite 1 tab/day. will re-eval tomorrow for dialysis if need extra session last Hb 13.8 hence no HANNAH at present Continue with phos binders home dose BP control with meds as ordered. Glycemic control, Dialysis consistent diet Further work up/management as per primary team Dose meds/antibiotics (if needed) for ESRD status. Avoid fleets enema/magnesium based laxatives. Thanks for allowing me to participate in care of your patient. Will follow patient with you. Please call if any Qs Dr Eric Temple Office: [phone] Chief Complaint; cough and SOB better reason for consult: ESRD HPI: Pt is a 37 y/o transgender with hx of ESRD on hemodialysis (TTS) via permacath, chronic anemia, hyperphosphatemia, secondary hyperparathyroidism, Diabetes Mellitus, hypertension, CAD s/p CABG, diastolic CHF, pA flutter/fib, intra-cardiac thrombus, Heparin induced thrombocytopenia in past presented with complaints of SOB and cough. admitted for pnuemonia. has chronic chest pain, denies palpitation, c/o chronic shortness of breath ROS: All other negative except as in HPI. has loose stool for weeks. denies pain abdomen, anuric. has cough. Physical Examination: seen on HD General Appearance: Comfortable, in no acute respiratory distress, co-operative . Vitals reviewed and noted as below Head; Atraumatic, normocephalic ENT: no ulcers no thrush. Tongue is midline. Oropharynx: no rash or ulcers. EYES: Pt is blind both eyes Neck; supple no lymphadenopathy, no thyromegaly or bruit Lungs: Normal respiratory rate/effort. Breath sounds bilateral equal with b/l basal crackles/rale Heart: Normal rate. s1s2 normal. No rub or gallop. Extremities: no edema. No varicose veins. has b/l BKA Neurological: Patient is alert, awake and oriented to person, place and time. No focal deficit. Strength bilateral appropriate and equal Skin: Warm and dry. Normal turgor. No rash. Palpitation: Normal elasticity for age Abdomen: Abdomen is soft. Bowel sounds +. There is no abdominal tenderness, no guarding/rigidity or organomegaly Psych: limited insight and has normal affect/mood MSK: no joint tenderness or swelling. Digits and nails normal, no deformity : kidney or bladder not palpable Access: permacath Labs/imaging reviewed. Past medical history, past surgical history, family history, social history, allergy reviewed and noted as below Family Hx: no hx of CKD. Non contributory Objective - Vital Signs/Intake and Output Vital Signs (last 24 hours): Temp Pulse Resp BP Pulse Ox 97.5 F L 79 24 144/86 99 01/09/18 10:05 01/09/18 10:05 01/09/18 10:05 01/09/18 11:35 01/09/18 10:05 Intake and Output: 01/09/18 01/09/18 06:59 18:59 Intake Total 700 Balance 700 - Medications Medications: Current Medications Albuterol/Ipratropium (Duoneb 3 Mg/0.5 Mg (3 Ml) Ud) 3 ml IH RQ4 [facility] Last Admin: 01/09/18 11:50 Dose: Not Given Amiodarone HCl (Cordarone) 200 mg PO DAILY [facility] Last Admin: 01/08/18 11:50 Dose: 200 mg Amlodipine Besylate (Norvasc) 10 mg PO DAILY [facility] Last Admin: 01/08/18 11:58 Dose: 10 mg Aspirin (Aspirin Chewable) 81 mg PO DAILY [facility] Last Admin: 01/08/18 11:58 Dose: 81 mg Calcium Carbonate (Oscal) 500 mg PO BID [facility] Last Admin: 01/08/18 17:37 Dose: 500 mg Carvedilol (Coreg) 25 mg PO BID [facility] Last Admin: 01/08/18 17:38 Dose: Not Given Docusate Sodium (Colace) 100 mg PO PRN PRN PRN Reason: Constipation Ergocalciferol (Drisdol 50,000 Intl Units Cap) 1 cap PO Q7D [facility] Hydromorphone HCl (Dilaudid) 1 mg IVP Q6H PRN PRN Reason: Pain, moderate (4-7) Last Admin: 01/09/18 09:04 Dose: 1 mg Azithromycin 500 mg/ Sodium (Chloride) 250 mls @ 250 mls/hr IVPB DAILY [facility] PRN Reason: Protocol Last Admin: 01/08/18 11:07 Dose: Not Given Ceftriaxone Sodium 1 gm/ (Dextrose) 100 mls @ 50 mls/30 min IVPB DAILY [facility] PRN Reason: Protocol Insulin Glargine (Lantus) 10 unit SC HS [facility] Last Admin: 01/08/18 21:56 Dose: 10 units Insulin Human Regular (Novolin R) 0 unit SC ACHS [facility] PRN Reason: Protocol Last Admin: 01/09/18 08:05 Dose: 2 unit Isosorbide Mononitrate (Imdur) 60 mg PO DAILY [facility] Last Admin: 01/08/18 11:51 Dose: 60 mg Lactulose (Enulose) 10 gm PO DAILY PRN Levetiracetam (Keppra) 500 mg PO BID [facility] Last Admin: 01/08/18 17:37 Dose: 500 mg Montelukast Sodium (Singulair) 10 mg PO HS [facility] Pantoprazole Sodium (Protonix Ec Tab) 20 mg PO DAILY [facility] Last Admin: 01/08/18 11:58 Dose: 20 mg Ranolazine (Ranexa) 500 mg PO BID [facility] Last Admin: 01/08/18 17:37 Dose: 500 mg Rosuvastatin Calcium (Crestor) 10 mg PO HS [facility] Last Admin: 01/08/18 21:57 Dose: 10 mg Sertraline HCl (Zoloft) 50 mg PO DAILY [facility] Last Admin: 01/08/18 11:57 Dose: 50 mg Tramadol HCl (Ultram) 50 mg PO ONCE PRN Last Admin: 01/08/18 11:57 Dose: 50 mg Valproate Sodium (Depakene Cap) 250 mg PO QID [facility] Last Admin: 01/08/18 21:57 Dose: 250 mg Vitamin B Complex/Vit C/Folic Acid (Nephro-Courtney) 1 tab PO 0800 [facility] Last Admin: 01/09/18 08:05 Dose: 1 tab - Labs Labs: 01/07/18 20:58 01/07/18 20:58
[2018-01-09] MEDS: Ranolazine 500 mg Extended Release Tablets PO SCH ×2 (14:35→17:55)
[2018-01-09] MEDS: cefTRIAXone IV 1 gm in Dextros 1 GM in Dextrose 5% In Water 50 ML IVPB SCH ×2 (14:38→14:39)
[2018-01-09] MEDS: Pantoprazole 20 mg EC Tab PO SCH (14:38)
[2018-01-09] MEDS: Azithromycin 500 MG in Sodium Chloride 0.9% 250 ML IVPB SCH (16:17)
--- NOTE | 2018-01-09 17:12 | CP.PCM.PN ---
Subjective - Date & Time of Evaluation Date of Evaluation: 01/09/18 Time of Evaluation: 17:10 - Subjective Subjective: pt still coughing alot sob chest pain Objective - Vital Signs/Intake and Output Vital Signs (last 24 hours): Temp Pulse Resp BP Pulse Ox 101.3 F H 107 H 18 122/66 97 01/09/18 16:00 01/09/18 16:00 01/09/18 16:00 01/09/18 16:00 01/09/18 16:00 Intake and Output: 01/09/18 01/09/18 06:59 18:59 Intake Total 700 380 Balance 700 380 - Medications Medications: Current Medications Albuterol/Ipratropium (Duoneb 3 Mg/0.5 Mg (3 Ml) Ud) 3 ml IH RQ4 [facility] Last Admin: 01/09/18 15:55 Dose: 3 ml Amiodarone HCl (Cordarone) 200 mg PO DAILY [facility] Last Admin: 01/09/18 14:36 Dose: 200 mg Amlodipine Besylate (Norvasc) 10 mg PO DAILY [facility] Last Admin: 01/09/18 14:37 Dose: 10 mg Aspirin (Aspirin Chewable) 81 mg PO DAILY [facility] Last Admin: 01/09/18 14:36 Dose: 81 mg Calcium Carbonate (Oscal) 500 mg PO BID [facility] Last Admin: 01/09/18 14:35 Dose: Not Given Carvedilol (Coreg) 25 mg PO BID [facility] Last Admin: 01/09/18 12:38 Dose: 25 mg Docusate Sodium (Colace) 100 mg PO PRN PRN PRN Reason: Constipation Ergocalciferol (Drisdol 50,000 Intl Units Cap) 1 cap PO Q7D [facility] Hydromorphone HCl (Dilaudid) 1 mg IVP Q6H PRN PRN Reason: Pain, moderate (4-7) Last Admin: 01/09/18 09:04 Dose: 1 mg Azithromycin 500 mg/ Sodium (Chloride) 250 mls @ 250 mls/hr IVPB DAILY [facility] PRN Reason: Protocol Last Admin: 01/09/18 16:17 Dose: Not Given Ceftriaxone Sodium 1 gm/ (Dextrose) 100 mls @ 50 mls/30 min IVPB DAILY [facility] PRN Reason: Protocol Last Admin: 01/09/18 14:39 Dose: 50 mls/30 min Insulin Glargine (Lantus) 10 unit SC [facility] Last Admin: 01/08/18 21:56 Dose: 10 units Insulin Human Regular (Novolin R) 0 unit SC [facility] PRN Reason: Protocol Last Admin: 01/09/18 14:38 Dose: Not Given Isosorbide Mononitrate (Imdur) 60 mg PO DAILY [facility] Last Admin: 01/09/18 14:37 Dose: 60 mg Lactulose (Enulose) 10 gm PO DAILY PRN Levetiracetam (Keppra) 500 mg PO BID [facility] Last Admin: 01/09/18 14:37 Dose: 500 mg Montelukast Sodium (Singulair) 10 mg PO [facility] Pantoprazole Sodium (Protonix Ec Tab) 20 mg PO DAILY [facility] Last Admin: 01/09/18 14:38 Dose: 20 mg Ranolazine (Ranexa) 500 mg PO BID [facility] Last Admin: 01/09/18 14:35 Dose: Not Given Rosuvastatin Calcium (Crestor) 10 mg PO [facility] Last Admin: 01/08/18 21:57 Dose: 10 mg Sertraline HCl (Zoloft) 50 mg PO DAILY [facility] Last Admin: 01/09/18 14:39 Dose: Not Given Tramadol HCl (Ultram) 50 mg PO ONCE PRN Last Admin: 01/08/18 11:57 Dose: 50 mg Valproate Sodium (Depakene Cap) 250 mg PO QID [facility] Last Admin: 01/09/18 14:37 Dose: 250 mg Vitamin B Complex/Vit C/Folic Acid (Nephro-Courtney) 1 tab PO 0800 [facility] Last Admin: 01/09/18 08:05 Dose: 1 tab - Labs Labs: 01/07/18 20:58 01/07/18 20:58 - Constitutional Appears: In Acute Distress - Head Exam Head Exam: ATRAUMATIC - Eye Exam Eye Exam: Conjunctival injection - ENT Exam ENT Exam: Mucous Membranes Dry - Neck Exam Neck Exam: Normal Inspection - Respiratory Exam Respiratory Exam: Decreased Breath Sounds, Rales, Rhonchi - Cardiovascular Exam Cardiovascular Exam: Tachycardia, REGULAR RHYTHM - GI/Abdominal Exam GI & Abdominal Exam: Soft - Rectal Exam Rectal Exam: Deferred - Back Exam Back Exam: CVA tenderness (L) - Neurological Exam Neurological Exam: Oriented x3 - Psychiatric Exam Psychiatric exam: Normal Affect - Skin Skin Exam: Pallor Assessment and Plan - Assessment and Plan (Free Text) Assessment: acute pnumonia fever keri not improving dn htn ESRF Plan: PULMONARY CONSULTATION
--- NOTE | 2018-01-09 20:15 | CP.PCM.CON ---
History of Present Illness - History of Present Illness History of Present Illness: 37 year old male presents to the emergency department after being sent here by a dialysis center status-post dialysis with complains of cough and shortness of breath. CT evidence of PNA. patient with numerus hospitalizations. Currently no CP, Let[place]rg[place] with SOB and cough....noted to have aflutter with RVR EK09/09/17; NSR, LVH, chronic ST changes lateral, old inferior infarct. 10/02/17: course AFIB: rate controlled, chronic LVH with strain 10/13/17: NSR, LVH, chronic lateral strain\ 10/30/17; NSR, old inferior infarct, septal infarct, chronic LVH with lateral strain pattern. 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 moderate pulmonary stenosis Chronic diastolic dysfunction grade 3 Chronic pain Hx of non-compliance with meds and on occasion HD Past Patient History - Infectious Disease Hx of Infectious Diseases: None - Tetanus Immunizations Tetanus Immunization: >10 years Ago - Past Medical History & Family History Past Medical History?: Yes - Past Social History Smoking Status: Never Smoked - CARDIAC Hx Atrial Fibrillation: Yes Hx Cardia Arrhythmia: Yes Hx Congestive Heart Failure: Yes Hx Hypercholesterolemia: Yes Hx Hypertension: Yes - PULMONARY Hx Asthma: Yes Hx Bronchitis: Yes Hx Chronic Obstructive Pulmonary Disease (COPD): Yes Hx Pneumonia: Yes - NEUROLOGICAL Hx Alzheimer's Disease: Yes Hx Seizures: Yes - HEENT Hx HEENT Problems: Yes Hx Blind: Yes (legally blind) Hx Cataracts: Yes - RENAL Hx Chronic Kidney Disease: Yes Hx Kidney Stones: No - ENDOCRINE/METABOLIC Hx Hyperthyroidism: No Hx Hypothyroidism: Yes - HEMATOLOGICAL/ONCOLOGICAL Hx Anemia: Yes - INTEGUMENTARY Hx Dermatological Problems: No - MUSCULOSKELETAL/RHEUMATOLOGICAL Hx Arthritis: Yes Hx Falls: Yes - GASTROINTESTINAL Hx Gall Bladder Disease: Yes Hx Gastritis: Yes - GENITOURINARY/GYNECOLOGICAL Hx Sexually Transmitted Disorders: No - PSYCHIATRIC Hx Anxiety: Yes Hx Depression: Yes Hx Substance Use: No - SURGICAL HISTORY Hx Cholecystectomy: Yes (2011) 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/2009) Hx Coronary Stent: Yes - ANESTHESIA Hx Anesthesia: Yes Hx Anesthesia Reactions: No Hx Malignant Hyperthermia: No Has any member of the family had a problem w/ anesthesia?: No Meds Allergies/Adverse Reactions: Allergies Allergy/AdvReac Type Severity Reaction Status Date / Time acetaminophen [From Percocet] Allergy RASH Verified 01/07/18 19:26 atenolol Allergy RASH Verified 01/07/18 19:26 digoxin Allergy RASH Verified 01/07/18 19:26 milk Allergy ITCHING Verified 01/07/18 19:26 morphine Allergy RASH Verified 01/07/18 19:26 oxycodone HCl [From Percocet] Allergy RASH Verified 01/07/18 19:26 - Medications Medications: Current Medications Acetaminophen (Tylenol 325mg Tab) 650 mg PO Q6 PRN PRN Reason: Fever >100.4 F Albuterol/Ipratropium (Duoneb 3 Mg/0.5 Mg (3 Ml) Ud) 3 ml IH RQ4 [facility] Last Admin: 01/09/18 19:07 Dose: 3 ml Amiodarone HCl (Cordarone) 200 mg PO DAILY [facility] Last Admin: 01/09/18 14:36 Dose: 200 mg Amlodipine Besylate (Norvasc) 10 mg PO DAILY [facility] Last Admin: 01/09/18 14:37 Dose: 10 mg Aspirin (Aspirin Chewable) 81 mg PO DAILY [facility] Last Admin: 01/09/18 14:36 Dose: 81 mg Calcium Carbonate (Oscal) 500 mg PO BID [facility] Last Admin: 01/09/18 17:55 Dose: 500 mg Carvedilol (Coreg) 25 mg PO BID [facility] Last Admin: 01/09/18 17:55 Dose: 25 mg Docusate Sodium (Colace) 100 mg PO PRN PRN PRN Reason: Constipation Ergocalciferol (Drisdol 50,000 Intl Units Cap) 1 cap PO Q7D [facility] Hydromorphone HCl (Dilaudid) 1 mg IVP Q6H PRN PRN Reason: Pain, moderate (4-7) Last Admin: 01/09/18 17:56 Dose: 1 mg Azithromycin 500 mg/ Sodium (Chloride) 250 mls @ 250 mls/hr IVPB DAILY [facility] PRN Reason: Protocol Last Admin: 01/09/18 16:17 Dose: Not Given Ceftriaxone Sodium 1 gm/ (Dextrose) 100 mls @ 50 mls/30 min IVPB DAILY [facility] PRN Reason: Protocol Last Admin: 01/09/18 14:39 Dose: 50 mls/30 min Insulin Glargine (Lantus) 10 unit SC HS [facility] Last Admin: 01/08/18 21:56 Dose: 10 units Insulin Human Regular (Novolin R) 0 unit SC ACHS [facility] PRN Reason: Protocol Last Admin: 01/09/18 17:55 Dose: 1 unit Isosorbide Mononitrate (Imdur) 60 mg PO DAILY [facility] Last Admin: 01/09/18 14:37 Dose: 60 mg Lactulose (Enulose) 10 gm PO DAILY PRN Levetiracetam (Keppra) 500 mg PO BID [facility] Last Admin: 01/09/18 17:55 Dose: 500 mg Montelukast Sodium (Singulair) 10 mg PO HS [facility] Pantoprazole Sodium (Protonix Ec Tab) 20 mg PO DAILY [facility] Last Admin: 01/09/18 14:38 Dose: 20 mg Ranolazine (Ranexa) 500 mg PO BID [facility] Last Admin: 01/09/18 17:55 Dose: 500 mg Rosuvastatin Calcium (Crestor) 10 mg PO HS [facility] Last Admin: 01/08/18 21:57 Dose: 10 mg Sertraline HCl (Zoloft) 50 mg PO DAILY [facility] Last Admin: 01/09/18 14:39 Dose: Not Given Tramadol HCl (Ultram) 50 mg PO ONCE PRN Last Admin: 01/08/18 11:57 Dose: 50 mg Valproate Sodium (Depakene Cap) 250 mg PO QID [facility] Last Admin: 01/09/18 17:55 Dose: 250 mg Vitamin B Complex/Vit C/Folic Acid (Nephro-Courtney) 1 tab PO 0800 [facility] Last Admin: 01/09/18 08:05 Dose: 1 tab Physical Exam - Constitutional Appears: Chronically Ill - Head Exam Head Exam: ATRAUMATIC, NORMAL INSPECTION, NORMOCEPHALIC - Eye Exam Eye Exam: absent: Normal appearance - ENT Exam ENT Exam: Mucous Membranes Dry, Mucous Membranes Moist - Neck Exam Neck exam: Positive for: Normal Inspection. Negative for: Tenderness - Respiratory Exam Respiratory Exam: Rhonchi - Cardiovascular Exam Cardiovascular Exam: REGULAR RHYTHM, +S1, +S2, Systolic Murmur. absent: Gallop - GI/Abdominal Exam GI & Abdominal Exam: Normal Bowel Sounds, Soft. absent: Tenderness - Extremities Exam Extremities exam: Negative for: normal inspection (b/l BKA) - Neurological Exam Neurological exam: Alert - Psychiatric Exam Psychiatric exam: Depressed - Skin Skin Exam: Normal Color, Warm Results - Vital Signs Recent Vital Signs: Last Vital Signs Temp 101.3 F H 01/09/18 16:00 Pulse 106 H 01/09/18 17:52 Resp 18 01/09/18 16:00 BP 107/71 01/09/18 17:55 Pulse Ox 97 01/09/18 16:00 - Labs Result Diagrams: 01/07/18 20:58 01/07/18 20:58 Labs: Laboratory Results - last 24 hr 01/08/18 01/09/18 01/09/18 20:59 06:17 11:03 POC Glucose (mg/dL) 199 H 239 H 95 01/09/18 16:29 POC Glucose (mg/dL) 186 H - EKG Data EKG Interpreted by: Myself (Aflutter, LVH with lateral strain pattern) Assessment & Plan - Assessment and Plan (Free Text) Assessment: > DM brittle poorly controlled and hx of non-compliance > HTN is chronic and stable; with hx of non-compliance and sporadic lability > ESRD on HD with hx of non-compliance and missed sessions > Recurrent anemia and hx of GI bleed > Aflutter paroxysmal > chronic CAD hx of failed bypass, prior PCI and small diffuse secondary vessels > PVD s/p bilateral BKA due to recurrent infections and progressive gangrene and non-healing ulcers > Legally blind > chronic recurrent Chest wall pains/neuropathy > Recurrent anemia and GI bleed in past and present: deemed not a good candidate for agressive anticoagulation Coronary artery disease s/p CABG and subsequent PCI all grafts are closed - He remains with preserved LV function and advanced diastolic dysfunction despite diffuse small vessel CAD (too small for PCI) (Last echo [facility] 12/2017) -EKG: hx of parox Aflutter, chronic LVH with strain ---> Now Aflutter 2:1 with IVCD and chronic lateral St changes -Medical therapy remains his most important and sole treatment option at this stage of chronic CAD. He unfortunately is not a candidate for any surgical or percutaneous therapy. Parox AFIB/FLUTTER > He has had hx of atrial catheter related thrombus in past ---> he was challenged with AC on many occasions but due to GI bleed deemed unsafe.. He has known documented hx of parx AFLUTTER/AFIB ESRD Cont HD to maintain volume status PNA - Supportive care, ABX - Low blood pressure monitor for sepsis Meds reviewed....Given acute PNA aflutter rate may be secondary...in future can [employer] amiodarone to 200 BID.
[2018-01-09] MEDS: (Lantus) Insulin Glargine, Recombinant SC SCH (21:46)
[2018-01-10] MEDS: Albuterol-Ipratrop 3 mg / 0.5 (3 ml) UD IH SCH ×4 (00:30→13:00)
[2018-01-10] MEDS: HYDROmorphone 1 mg/ml ISec IVP PRN (02:32)
[2018-01-10] MEDS: (Novolin R) Insulin Human Regular 100 units/ml vial SC SCH ×4 (08:55→21:22)
[2018-01-10] MEDS: Multivitamin Vitamin B Complex (Nephro-Vite) Tab PO SCH (08:55)
[2018-01-10] MEDS: Azithromycin 500 MG in Sodium Chloride 0.9% 250 ML IVPB SCH (09:13)
[2018-01-10] MEDS: Pantoprazole 20 mg EC Tab PO SCH (10:25)
[2018-01-10] MEDS: Ranolazine 500 mg Extended Release Tablets PO SCH ×2 (10:25→17:24)
--- NOTE | 2018-01-10 10:35 | CP.PCM.PN ---
Subjective - Date & Time of Evaluation Date of Evaluation: 01/10/18 Time of Evaluation: 10:32 - Subjective Subjective: pt c/o of pain still coughing sob less chest pain Objective - Vital Signs/Intake and Output Vital Signs (last 24 hours): Temp Pulse Resp BP Pulse Ox 97.7 F 67 20 73/49 L 96 01/10/18 07:00 01/10/18 07:00 01/10/18 07:00 01/10/18 07:00 01/10/18 07:00 Intake and Output: 01/10/18 01/10/18 06:59 18:59 Intake Total 250 Balance 250 - Medications Medications: Current Medications Acetaminophen (Tylenol 325mg Tab) 650 mg PO Q6 PRN PRN Reason: Fever >100.4 F Albuterol/Ipratropium (Duoneb 3 Mg/0.5 Mg (3 Ml) Ud) 3 ml IH RQ4 [facility] Last Admin: 01/10/18 07:26 Dose: 3 ml Amiodarone HCl (Cordarone) 200 mg PO DAILY [facility] Last Admin: 01/09/18 14:36 Dose: 200 mg Amlodipine Besylate (Norvasc) 10 mg PO DAILY [facility] Last Admin: 01/09/18 14:37 Dose: 10 mg Aspirin (Aspirin Chewable) 81 mg PO DAILY [facility] Last Admin: 01/10/18 10:25 Dose: 81 mg Calcium Carbonate (Oscal) 500 mg PO BID [facility] Last Admin: 01/10/18 10:26 Dose: 500 mg Carvedilol (Coreg) 25 mg PO BID [facility] Last Admin: 01/09/18 17:55 Dose: 25 mg Docusate Sodium (Colace) 100 mg PO PRN PRN PRN Reason: Constipation Ergocalciferol (Drisdol 50,000 Intl Units Cap) 1 cap PO Q7D [facility] Hydromorphone HCl (Dilaudid) 1 mg IVP Q6H PRN PRN Reason: Pain, moderate (4-7) Last Admin: 01/10/18 02:32 Dose: 1 mg Azithromycin 500 mg/ Sodium (Chloride) 250 mls @ 250 mls/hr IVPB DAILY [facility] PRN Reason: Protocol Last Admin: 01/09/18 16:17 Dose: Not Given Ceftriaxone Sodium 1 gm/ (Dextrose) 100 mls @ 50 mls/30 min IVPB DAILY [facility] PRN Reason: Protocol Last Admin: 01/09/18 14:39 Dose: 50 mls/30 min Insulin Glargine (Lantus) 10 unit SC [facility] Last Admin: 01/09/18 21:46 Dose: 10 units Insulin Human Regular (Novolin R) 0 unit SC [facility] PRN Reason: Protocol Last Admin: 01/10/18 08:55 Dose: 2 unit Isosorbide Mononitrate (Imdur) 60 mg PO DAILY [facility] Last Admin: 01/09/18 14:37 Dose: 60 mg Lactulose (Enulose) 10 gm PO DAILY PRN Levetiracetam (Keppra) 500 mg PO BID [facility] Last Admin: 01/10/18 10:26 Dose: 500 mg Montelukast Sodium (Singulair) 10 mg PO [facility] Last Admin: 01/09/18 21:43 Dose: 10 mg Pantoprazole Sodium (Protonix Ec Tab) 20 mg PO DAILY [facility] Last Admin: 01/10/18 10:25 Dose: 20 mg Ranolazine (Ranexa) 500 mg PO BID [facility] Last Admin: 01/10/18 10:25 Dose: 500 mg Rosuvastatin Calcium (Crestor) 10 mg PO [facility] Last Admin: 01/09/18 21:46 Dose: 10 mg Sertraline HCl (Zoloft) 50 mg PO DAILY [facility] Last Admin: 01/10/18 10:25 Dose: 50 mg Tramadol HCl (Ultram) 50 mg PO ONCE PRN Last Admin: 01/08/18 11:57 Dose: 50 mg Valproate Sodium (Depakene Cap) 250 mg PO QID [facility] Last Admin: 01/10/18 10:25 Dose: 250 mg Vitamin B Complex/Vit C/Folic Acid (Nephro-Courtney) 1 tab PO 0800 [facility] Last Admin: 01/10/18 08:55 Dose: 1 tab - Labs Labs: 01/07/18 20:58 01/07/18 20:58 - Constitutional Appears: In Acute Distress - Head Exam Head Exam: ATRAUMATIC - Eye Exam Eye Exam: Conjunctival injection - ENT Exam ENT Exam: Mucous Membranes Moist - Neck Exam Neck Exam: Full ROM - Respiratory Exam Respiratory Exam: Decreased Breath Sounds, Rales - Cardiovascular Exam Cardiovascular Exam: REGULAR RHYTHM - GI/Abdominal Exam GI & Abdominal Exam: Normal Bowel Sounds - Back Exam Back Exam: CVA tenderness (L) - Neurological Exam Neurological Exam: Alert, Oriented x3 - Psychiatric Exam Psychiatric exam: Depressed - Skin Skin Exam: Pallor Assessment and Plan - Assessment and Plan (Free Text) Assessment: acute pnumonia copd back pain depresion ESRF Plan: CONT TREATMENT CONSULT PSYCH
[2018-01-10] MEDS: cefTRIAXone IV 1 gm in Dextros 1 GM in Dextrose 5% In Water 50 ML IVPB SCH (11:30)
[2018-01-10] MEDS ORDERED: Sodium Chloride 0.9% 250 ML IV ONE (14:09)
--- NOTE | 2018-01-10 14:18 | PCM.RRT ---
<Isma Schultzssbecki Madden - Last Filed: 01/10/18 19:33> SENIOR TREASURY ANALYST Nurses Assessment - Situation Date: 01/10/18 Time SENIOR TREASURY ANALYST was called: 14:09 SENIOR TREASURY ANALYST Responder Arrival Time:: 14:10 SENIOR TREASURY ANALYST Location:: Med/Surg SENIOR TREASURY ANALYST Reason for Call: Hypotension SENIOR TREASURY ANALYST Called By: RN - Constitutional Appears: Chronically Ill - Head Head Exam: ATRAUMATIC, NORMAL INSPECTION - Cardiovascular Exam Cardiovascular Exam: Bradycardia, +S1, +S2 - Neurological Exam Neurological Exam: Awake Plan - Assessment of Findings&Treatment Plan SENIOR TREASURY ANALYST was called by RN for hypotension. Patient was responsive to stimuli. Patient's B/P 58/31 and HR 58. Glucacon 1g IV was given. Blood culture, cbc, cmp, trop, EKG were drawn for the dialysis catheter and were ordered. Patient' s repeat B/P 104/58, HR 115. ICU was consulted and patient was transferred to ICU. Patient's physician Dr. Li was notified. <Lor Villagomez V - Last Filed: 01/10/18 23:04> SENIOR TREASURY ANALYST Nurses Assessment - Vital Signs Vital Signs: Rapid Response Vital Sign Pulse Rate 115 Respiratory Rate 20 Temperature 98.2 F Oxygen Saturation 98 - Vital Signs at end of SENIOR TREASURY ANALYST Vital Signs at end of SENIOR TREASURY ANALYST: Rapid Response End Vital Sign Blood Pressure 104/58 Respiratory Rate 20 O2 Sat by Pulse Oximetry 100 Attending/Attestation - Attestation I have personally seen and examined this patient.: Yes I have fully participated in the care of the patient.: Yes I have reviewed all pertinent clinical information, including history, physical exam and plan: Yes Notes (Text): Brief Hospitalist Note Reason: hypotension, bradycardia per discussion with nurse Sage, patient has been hypotensive since this morning. Patient has not received any anti-hypertensives. Patient is also on pain medications but last dose about 2AM this morning. patient was on 200cc/hr maintenace IV fluids however, blood pressure is low and bradycardia. Nursing attempted to get peripheral IV access however she is difficult access. Patient started Fluid bolus. Patient given 1 ampule of Glucagon to reverse any beta- skyler effect. Patient's last known blood work was 3 days ago; will repeat blood works today including troponin, VBG. Nephrology Dr Temple at bedside; patient noted to tolerate dialysis yesterday and allowed for the fluid to be given through the dialysis catheter. VS:Patient's repeat B/P 104/58, HR 115. Patient is awake and alert during this episode. Patient reports she is in pain. Has episode of vomitting. Patient is part deaf and blind. Extensive cardiac and diabetic history on esrd and b/l BKAs. patient is on IV Abs for pneumonia. Possible suspicion for sepsis? but will need blood work to see if any changes. Discussed case with ICU, who accepted the patient for further monitoring and management. Resident has informed PMD who request for STONE and EKG.
[2018-01-10] MEDS ORDERED: Glucagon Recombinant 1 mg Inj IV ONE (14:30)
[2018-01-10 14:46] LABS: VENOUS BLOOD GAS BASE EXCESS -4.1 mmol/L (0.0-2.0); VENOUS BLOOD GAS PCO2 41 mmHg (40-60); VENOUS BLOOD GAS PO2 49 mm/Hg (30-55); VENOUS BLOOD PH 7.33 (7.32-7.43)
[2018-01-10 14:52] LABS: BASO % 0.4 % (0.0-2.0); EOS # 0.1 K/uL (0.0-0.7); EOS % 1.5 % (0.0-4.0); HEMOGLOBIN 11.9 g/dL (12.0-18.0); LYMPH # 2.3 K/uL (1.0-4.3); MEAN CELL VOLUME 87.9 fL (80.0-94.0); MEAN CORPUSCULAR HEMOGLOBIN 28.4 pg (27.0-31.0); MEAN CORPUSCULAR HGB CONC 32.3 g/dL (33.0-37.0); MONO # 0.3 K/uL (0.0-0.8); MONO % 4.1 % (0.0-10.0); NEUT # 5.4 K/uL (1.8-7.0); NRBC % 0.1 % (0.0-2.0); RBC 4.2 Mil/uL (4.40-5.90); RED CELL DISTRIBUTION WIDTH 18.3 % (11.5-14.5); WHITE BLOOD COUNT 8.1 K/uL (4.8-10.8)
[2018-01-10 15:10] LABS: ALB/GLOB RATIO 0.9 (1.0-2.1); ALBUMIN 3.7 g/dL (3.5-5.0); CALCIUM 8.5 mg/dl (8.6-10.4)
--- NOTE | 2018-01-10 15:24 | CP.PCM.CON ---
<Washington Payton - Last Filed: 01/10/18 17:37> Meds Allergies/Adverse Reactions: Allergies Allergy/AdvReac Type Severity Reaction Status Date / Time acetaminophen [From Percocet] Allergy RASH Verified 01/07/18 19:26 atenolol Allergy RASH Verified 01/07/18 19:26 digoxin Allergy RASH Verified 01/07/18 19:26 milk Allergy ITCHING Verified 01/07/18 19:26 morphine Allergy RASH Verified 01/07/18 19:26 oxycodone HCl [From Percocet] Allergy RASH Verified 01/07/18 19:26 - Medications Medications: Current Medications Acetaminophen (Tylenol 325mg Tab) 650 mg PO Q6 PRN PRN Reason: Fever >100.4 F Albuterol/Ipratropium (Duoneb 3 Mg/0.5 Mg (3 Ml) Ud) 3 ml IH RQ4 COUNT INCLUDES THE [facility] Last Admin: 01/10/18 13:00 Dose: 3 ml Amiodarone HCl (Cordarone) 200 mg PO DAILY COUNT INCLUDES THE [facility] Last Admin: 01/10/18 10:00 Dose: Not Given Aspirin (Aspirin Chewable) 81 mg PO DAILY COUNT INCLUDES THE [facility] Last Admin: 01/10/18 10:25 Dose: 81 mg Calcium Carbonate (Oscal) 500 mg PO BID COUNT INCLUDES THE [facility] Last Admin: 01/10/18 17:26 Dose: Not Given Docusate Sodium (Colace) 100 mg PO PRN PRN PRN Reason: Constipation Ergocalciferol (Drisdol 50,000 Intl Units Cap) 1 cap PO Q7D COUNT INCLUDES THE [facility] Hydromorphone HCl (Dilaudid) 1 mg IVP Q6H PRN PRN Reason: Pain, moderate (4-7) Last Admin: 01/10/18 02:32 Dose: 1 mg Azithromycin 500 mg/ Sodium (Chloride) 250 mls @ 250 mls/hr IVPB DAILY COUNT INCLUDES THE [facility] PRN Reason: Protocol Last Admin: 01/10/18 09:13 Dose: 250 mls/hr Ceftriaxone Sodium 1 gm/ (Dextrose) 100 mls @ 50 mls/30 min IVPB DAILY COUNT INCLUDES THE [facility] PRN Reason: Protocol Last Admin: 01/10/18 11:30 Dose: 50 mls/30 min Sodium Chloride (Sodium Chloride 0.9%) 250 mls @ 70 mls/hr IV .Q3H35M ONE Stop: 01/10/18 17:43 Last Admin: 01/10/18 16:32 Dose: Not Given Insulin Glargine (Lantus) 10 unit SC [facility] Last Admin: 01/09/18 21:46 Dose: 10 units Insulin Human Regular (Novolin R) 0 unit SC Q6H COUNT INCLUDES THE [facility] PRN Reason: Protocol Last Admin: 01/10/18 16:00 Dose: 2 unit Lactulose (Enulose) 10 gm PO DAILY PRN Levetiracetam (Keppra) 500 mg PO BID COUNT INCLUDES THE [facility] Last Admin: 01/10/18 17:23 Dose: Not Given Montelukast Sodium (Singulair) 10 mg PO [facility] Last Admin: 01/09/18 21:43 Dose: 10 mg Pantoprazole Sodium (Protonix Ec Tab) 20 mg PO DAILY COUNT INCLUDES [facility] Last Admin: 01/10/18 10:25 Dose: 20 mg Ranolazine (Ranexa) 500 mg PO BID COUNT INCLUDES [facility] Last Admin: 01/10/18 17:24 Dose: Not Given Rosuvastatin Calcium (Crestor) 10 mg PO [facility] Last Admin: 01/09/18 21:46 Dose: 10 mg Tramadol HCl (Ultram) 50 mg PO ONCE PRN Last Admin: 01/08/18 11:57 Dose: 50 mg Valproate Sodium (Depakene Cap) 250 mg PO QID COUNT INCLUDES THE [facility] Last Admin: 01/10/18 17:23 Dose: Not Given Vitamin B Complex/Vit C/Folic Acid (Nephro-Courtney) 1 tab PO 0800 COUNT INCLUDES THE [facility] Last Admin: 01/10/18 08:55 Dose: 1 tab Results - Vital Signs Recent Vital Signs: Last Vital Signs Temp 97.7 F 01/10/18 07:00 Pulse 66 01/10/18 10:57 Resp 20 01/10/18 07:00 BP 96/62 L 01/10/18 10:57 Pulse Ox 96 01/10/18 07:00 - Labs Result Diagrams: 01/10/18 14:44 01/10/18 14:44 Labs: Laboratory Results - last 24 hr 01/09/18 01/10/18 01/10/18 21:26 06:15 11:44 WBC RBC Hgb Hct MCV MCH MCHC RDW Plt Count MPV Neut % (Auto) Lymph % (Auto) Winston % (Auto) Eos % (Auto) Baso % (Auto) Neut # (Auto) Lymph # (Auto) Winston # (Auto) Eos # (Auto) Baso # (Auto) Differential Comment PT INR APTT pO2 VBG pH VBG pCO2 VBG HCO3 VBG Total CO2 VBG O2 Sat (Calc) VBG Base Excess VBG Potassium Sodium Chloride Glucose Lactate Liter Flow Potassium Carbon Dioxide Anion Gap BUN Creatinine Est GFR ( Amer) Est GFR (Non-Af Amer) POC Glucose (mg/dL) 251 H 244 H 312 H Random Glucose Lactic Acid Calcium Total Bilirubin AST ALT Alkaline Phosphatase Total Creatine Kinase CK-MB (Mass) Troponin I Total Protein Albumin Globulin Albumin/Globulin Ratio Venous Blood Potassium 01/10/18 01/10/18 01/10/18 14:42 14:44 14:44 WBC 8.1 RBC 4.20 L Hgb 11.9 L Hct 36.9 MCV 87.9 MCH 28.4 MCHC 32.3 L RDW 18.3 H Plt Count 126 L MPV 10.0 Neut % (Auto) 66.0 Lymph % (Auto) 28.0 Winston % (Auto) 4.1 Eos % (Auto) 1.5 Baso % (Auto) 0.4 Neut # (Auto) 5.4 Lymph # (Auto) 2.3 Winston # (Auto) 0.3 Eos # (Auto) 0.1 Baso # (Auto) 0.0 Differential Comment PT INR APTT pO2 49 VBG pH 7.33 VBG pCO2 41 VBG HCO3 21.3 VBG Total CO2 22.9 VBG O2 Sat (Calc) 86.1 H VBG Base Excess -4.1 L VBG Potassium 4.1 Sodium 140.0 Chloride 105.0 Glucose 279 H Lactate 1.5 Liter Flow 3.0 Potassium Carbon Dioxide Anion Gap BUN Creatinine Est GFR ( Amer) Est GFR (Non-Af Amer) POC Glucose (mg/dL) Random Glucose Lactic Acid 1.6 Calcium Total Bilirubin AST ALT Alkaline Phosphatase Total Creatine Kinase CK-MB (Mass) Troponin I Total Protein Albumin Globulin Albumin/Globulin Ratio Venous Blood Potassium 4.1 01/10/18 01/10/18 01/10/18 14:44 15:42 16:05 WBC RBC Hgb Hct MCV MCH MCHC RDW Plt Count MPV Neut % (Auto) Lymph % (Auto) Winston % (Auto) Eos % (Auto) Baso % (Auto) Neut # (Auto) Lymph # (Auto) Winston # (Auto) Eos # (Auto) Baso # (Auto) Differential Comment PT 13.2 H INR 1.2 APTT 35 H pO2 VBG pH VBG pCO2 VBG HCO3 VBG Total CO2 VBG O2 Sat (Calc) VBG Base Excess VBG Potassium Sodium 141 Chloride 96 L Glucose Lactate Liter Flow Potassium 4.5 Carbon Dioxide 23 Anion Gap 27 H BUN 38 H Creatinine 4.2 H Est GFR ( Amer) 20 Est GFR (Non-Af Amer) 16 POC Glucose (mg/dL) Random Glucose 281 H Lactic Acid Calcium 8.5 L Total Bilirubin 1.0 AST 515 H D ALT 308 H D Alkaline Phosphatase 182 H D Total Creatine Kinase 21 L CK-MB (Mass) 0.60 Troponin I 0.1340 H* Total Protein 7.7 Albumin 3.7 Globulin 4.0 H Albumin/Globulin Ratio 0.9 L Venous Blood Potassium 01/10/18 16:37 WBC RBC Hgb Hct MCV MCH MCHC RDW Plt Count MPV Neut % (Auto) Lymph % (Auto) Winston % (Auto) Eos % (Auto) Baso % (Auto) Neut # (Auto) Lymph # (Auto) Winston # (Auto) Eos # (Auto) Baso # (Auto) Differential Comment PT INR APTT pO2 VBG pH VBG pCO2 VBG HCO3 VBG Total CO2 VBG O2 Sat (Calc) VBG Base Excess VBG Potassium Sodium Chloride Glucose Lactate Liter Flow Potassium Carbon Dioxide Anion Gap BUN Creatinine Est GFR ( Amer) Est GFR (Non-Af Amer) POC Glucose (mg/dL) 202 H Random Glucose Lactic Acid Calcium Total Bilirubin AST ALT Alkaline Phosphatase Total Creatine Kinase CK-MB (Mass) Troponin I Total Protein Albumin Globulin Albumin/Globulin Ratio Venous Blood Potassium Attending/Attestation - Attestation I have personally seen and examined this patient.: Yes I have fully participated in the care of the patient.: Yes I have reviewed all pertinent clinical information: Yes Notes (Text): 01/10/18 17:37 I have seen and examined the patient. Medical records, lab studies, and imaging were reviewed by me and a management plan was formulated on multidisciplinary rounds with resident Dr. Francis. I agree with their documented assessment and plan. Patient has intermittent hypotension, labile. Also new onset paroxysmal afib, dialted RV on echo. R/o PE, obtain CT angio. Critical Care Time 35 minutes. Multi-disciplinary rounds were performed with house staff, nursing, speech therapy, respiratory therapy, pharmacy and nutrition with integrated input from the primary team/attending and other consulting services. The documented time is cumulative and includes review of patient data/exams/labs/chart review and examination of the patient on rounds and throughout the day; time is exclusive of any procedures or teaching time. <Sheba Francis - Last Filed: 01/10/18 19:42> History of Present Illness - History of Present Illness History of Present Illness: Critical Care Consult Note. This patient is a 37 year old transitioning female with a PMHx of DM II, ESRD on HD (TThS) vis Permacath, Chronic Anemia, HTN, ESRD, CAD s/p CABG, Heparin Induced Thrombocytopenia and diastolic CHF who presented with SOB and admitted for Pneuomonia. Rapid Repsonse called on this patient on 01/10/18 for hypotension. Glucagon given during rapid to offset Beta Andrew. ICU consulted on this patient for hypotension. Of note, patient is a poor historian and was in a lethargic state during examination. She answered ROS but did not answer questions about her history. History gained from chart. ROS POSITIVES: Lethargy NEGATIVES: Fever, Chills, Headache, Chest pain, SOB, abdominal pain, nausea , vomiting, changes in bowel habits. PMHx: As stated above PSHx: B/L BKA, Surgery Allergies: Acetaminophen, Atenolol, digoxin, milk, morphine, oxycodone Meds: Reviewed Review of Systems - Review of Systems All systems: reviewed and no additional remarkable complaints except (As per HPI ) Review of Systems: As per HPI Past Patient History - Infectious Disease Hx of Infectious Diseases: None - Tetanus Immunizations Tetanus Immunization: >10 years Ago - Past Medical History & Family History Past Medical History?: Yes - Past Social History Smoking Status: Never Smoked - CARDIAC Hx Atrial Fibrillation: Yes Hx Cardia Arrhythmia: Yes Hx Congestive Heart Failure: Yes Hx Hypercholesterolemia: Yes Hx Hypertension: Yes - PULMONARY Hx Asthma: Yes Hx Bronchitis: Yes Hx Chronic Obstructive Pulmonary Disease (COPD): Yes Hx Pneumonia: Yes - NEUROLOGICAL Hx Alzheimer's Disease: Yes Hx Seizures: Yes - HEENT Hx HEENT Problems: Yes Hx Blind: Yes (legally blind) Hx Cataracts: Yes - RENAL Hx Chronic Kidney Disease: Yes Hx Kidney Stones: No - ENDOCRINE/METABOLIC Hx Hyperthyroidism: No Hx Hypothyroidism: Yes - HEMATOLOGICAL/ONCOLOGICAL Hx Anemia: Yes - INTEGUMENTARY Hx Dermatological Problems: No - MUSCULOSKELETAL/RHEUMATOLOGICAL Hx Arthritis: Yes Hx Falls: Yes - GASTROINTESTINAL Hx Gall Bladder Disease: Yes Hx Gastritis: Yes - GENITOURINARY/GYNECOLOGICAL Hx Sexually Transmitted Disorders: No - PSYCHIATRIC Hx Anxiety: Yes Hx Depression: Yes Hx Substance Use: No - SURGICAL HISTORY Hx Cholecystectomy: Yes (2011) 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/2009) Hx Coronary Stent: Yes - ANESTHESIA Hx Anesthesia: Yes Hx Anesthesia Reactions: No Hx Malignant Hyperthermia: No Has any member of the family had a problem w/ anesthesia?: No Meds - Medications Medications: Current Medications Acetaminophen (Tylenol 325mg Tab) 650 mg PO Q6 PRN PRN Reason: Fever >100.4 F Albuterol/Ipratropium (Duoneb 3 Mg/0.5 Mg (3 Ml) Ud) 3 ml IH RQ4 COUNT INCLUDES THE [facility] Last Admin: 01/10/18 13:00 Dose: 3 ml Amiodarone HCl (Cordarone) 200 mg PO DAILY COUNT INCLUDES [facility] Last Admin: 01/10/18 10:00 Dose: Not Given Aspirin (Aspirin Chewable) 81 mg PO DAILY COUNT INCLUDES [facility] Last Admin: 01/10/18 10:25 Dose: 81 mg Calcium Carbonate (Oscal) 500 mg PO BID COUNT INCLUDES [facility] Last Admin: 01/10/18 10:26 Dose: 500 mg Carvedilol (Coreg) 25 mg PO BID COUNT INCLUDES [facility] Last Admin: 01/10/18 10:00 Dose: Not Given Docusate Sodium (Colace) 100 mg PO PRN PRN PRN Reason: Constipation Ergocalciferol (Drisdol 50,000 Intl Units Cap) 1 cap PO Q7D COUNT INCLUDES THE [facility] Hydromorphone HCl (Dilaudid) 1 mg IVP Q6H PRN PRN Reason: Pain, moderate (4-7) Last Admin: 01/10/18 02:32 Dose: 1 mg Azithromycin 500 mg/ Sodium (Chloride) 250 mls @ 250 mls/hr IVPB DAILY COUNT INCLUDES [facility] PRN Reason: Protocol Last Admin: 01/10/18 09:13 Dose: 250 mls/hr Ceftriaxone Sodium 1 gm/ (Dextrose) 100 mls @ 50 mls/30 min IVPB DAILY COUNT INCLUDES THE [facility] PRN Reason: Protocol Last Admin: 01/10/18 11:30 Dose: 50 mls/30 min Sodium Chloride (Sodium Chloride 0.9%) 250 mls @ 70 mls/hr IV .Q3H35M ONE Stop: 01/10/18 17:43 Insulin Glargine (Lantus) 10 unit SC [facility] Last Admin: 01/09/18 21:46 Dose: 10 units Insulin Human Regular (Novolin R) [facility] PRN Reason: Protocol Last Admin: 01/10/18 13:10 Dose: 4 unit Isosorbide Mononitrate (Imdur) 60 mg PO DAILY COUNT INCLUDES [facility] Last Admin: 01/10/18 10:00 Dose: Not Given Lactulose (Enulose) 10 gm PO DAILY PRN Levetiracetam (Keppra) 500 mg PO BID COUNT INCLUDES [facility] Last Admin: 01/10/18 10:26 Dose: 500 mg Montelukast Sodium (Singulair) 10 mg PO [facility] Last Admin: 01/09/18 21:43 Dose: 10 mg Pantoprazole Sodium (Protonix Ec Tab) 20 mg PO DAILY COUNT INCLUDES [facility] Last Admin: 01/10/18 10:25 Dose: 20 mg Ranolazine (Ranexa) 500 mg PO BID COUNT INCLUDES [facility] Last Admin: 01/10/18 10:25 Dose: 500 mg Rosuvastatin Calcium (Crestor) 10 mg PO HS COUNT INCLUDES [facility] Last Admin: 01/09/18 21:46 Dose: 10 mg Tramadol HCl (Ultram) 50 mg PO ONCE PRN Last Admin: 01/08/18 11:57 Dose: 50 mg Valproate Sodium (Depakene Cap) 250 mg PO QID COUNT INCLUDES [facility] Last Admin: 01/10/18 13:50 Dose: 250 mg Vitamin B Complex/Vit C/Folic Acid (Nephro-Courtney) 1 tab PO 0800 COUNT INCLUDES THE [facility] Last Admin: 01/10/18 08:55 Dose: 1 tab Physical Exam - Head Exam Head Exam: ATRAUMATIC, NORMAL INSPECTION, NORMOCEPHALIC - Eye Exam Additional comments: Blind - ENT Exam ENT Exam: Mucous Membranes Moist - Neck Exam Neck exam: Positive for: Normal Inspection - Respiratory Exam Respiratory Exam: Clear to Auscultation Bilateral. absent: Rales, Wheezes - Cardiovascular Exam Cardiovascular Exam: Irregular Rhythm, +S1, +S2. absent: Diastolic murmur, REGULAR RHYTHM, Systolic Murmur - GI/Abdominal Exam GI & Abdominal Exam: Normal Bowel Sounds, Soft. absent: Tenderness - Extremities Exam Additional comments: B/L BKA - Neurological Exam Neurological exam: Alert, Oriented x3 - Psychiatric Exam Psychiatric exam: Agitated, Anxious Additional comments: Lethargic - Skin Skin Exam: Dry, Intact, Warm Additional comments: Multiple Echymosis on upper ext. b/l. Likely from multiple IV sticks. Results - Vital Signs Recent Vital Signs: Last Vital Signs Temp 97.7 F 01/10/18 07:00 Pulse 66 01/10/18 10:57 Resp 20 01/10/18 07:00 BP 96/62 L 01/10/18 10:57 Pulse Ox 96 01/10/18 07:00 - Labs Result Diagrams: 01/10/18 14:44 01/10/18 14:44 Labs: Laboratory Results - last 24 hr 01/09/18 01/09/18 01/10/18 16:29 21:26 06:15 WBC RBC Hgb Hct MCV MCH MCHC RDW Plt Count MPV Neut % (Auto) Lymph % (Auto) Winston % (Auto) Eos % (Auto) Baso % (Auto) Neut # (Auto) Lymph # (Auto) Winston # (Auto) Eos # (Auto) Baso # (Auto) pO2 VBG pH VBG pCO2 VBG HCO3 VBG Total CO2 VBG O2 Sat (Calc) VBG Base Excess VBG Potassium Sodium Chloride Glucose Lactate Liter Flow Potassium Carbon Dioxide Anion Gap BUN Creatinine Est GFR ( Amer) Est GFR (Non-Af Amer) POC Glucose (mg/dL) 186 H 251 H 244 H Random Glucose Lactic Acid Calcium Total Bilirubin AST ALT Alkaline Phosphatase Total Protein Albumin Globulin Albumin/Globulin Ratio Venous Blood Potassium 01/10/18 01/10/18 01/10/18 11:44 14:42 14:44 WBC RBC Hgb Hct MCV MCH MCHC RDW Plt Count MPV Neut % (Auto) Lymph % (Auto) Winston % (Auto) Eos % (Auto) Baso % (Auto) Neut # (Auto) Lymph # (Auto) Winston # (Auto) Eos # (Auto) Baso # (Auto) pO2 49 VBG pH 7.33 VBG pCO2 41 VBG HCO3 21.3 VBG Total CO2 22.9 VBG O2 Sat (Calc) 86.1 H VBG Base Excess -4.1 L VBG Potassium 4.1 Sodium 140.0 Chloride 105.0 Glucose 279 H Lactate 1.5 Liter Flow 3.0 Potassium Carbon Dioxide Anion Gap BUN Creatinine Est GFR ( Amer) Est GFR (Non-Af Amer) POC Glucose (mg/dL) 312 H Random Glucose Lactic Acid 1.6 Calcium Total Bilirubin AST ALT Alkaline Phosphatase Total Protein Albumin Globulin Albumin/Globulin Ratio Venous Blood Potassium 4.1 01/10/18 01/10/18 14:44 14:44 WBC 8.1 RBC 4.20 L Hgb 11.9 L Hct 36.9 MCV 87.9 MCH 28.4 MCHC 32.3 L RDW 18.3 H Plt Count 126 L MPV 10.0 Neut % (Auto) 66.0 Lymph % (Auto) 28.0 Winston % (Auto) 4.1 Eos % (Auto) 1.5 Baso % (Auto) 0.4 Neut # (Auto) 5.4 Lymph # (Auto) 2.3 Winston # (Auto) 0.3 Eos # (Auto) 0.1 Baso # (Auto) 0.0 pO2 VBG pH VBG pCO2 VBG HCO3 VBG Total CO2 VBG O2 Sat (Calc) VBG Base Excess VBG Potassium Sodium 141 Chloride 96 L Glucose Lactate Liter Flow Potassium 4.5 Carbon Dioxide 23 Anion Gap 27 H BUN 38 H Creatinine 4.2 H Est GFR ( Amer) 20 Est GFR (Non-Af Amer) 16 POC Glucose (mg/dL) Random Glucose 281 H Lactic Acid Calcium 8.5 L Total Bilirubin 1.0 AST 515 H D ALT 308 H D Alkaline Phosphatase 182 H D Total Protein 7.7 Albumin 3.7 Globulin 4.0 H Albumin/Globulin Ratio 0.9 L Venous Blood Potassium Assessment & Plan - Assessment and Plan (Free Text) Assessment: This patient is a 37 year old transitioning female with a PMHx of DM II, ESRD on HD (TThS) vis Permacath, Chronic Anemia, HTN, ESRD, CAD s/p CABG, Heparin Induced Thrombocytopenia and diastolic CHF who presented with SOB and admitted for Pneuomonia. Rapid Repsonse called on this patient on 01/10/18 for hypotension. Glucagon given during rapid to offset Beta Andrew. ICU consulted on this patient for hypotension. Plan: Neuro A: Hx of Seizures GCS: 15 Sedation: None Keppra, Valproate (for Seizures or Hx of BiPolar, Will need to clarify) Cardio A:Hypotension, pA Flutter/fib, CAD s/p CABG, diastolic CHF, HTN Hypotension likely 2/2 from arrhythmia CTA to rule out PE causing arrhythmia ASA, Ranexa Amiodarone Crestor Cardiology on Consult Pulm A: Pneumonia Duonebs, Singuliar, Pulmonology on COnsult. GI A: Constipation Lactulose PRN, Protonix Nephro A: ESRD on HD(TTS) via permacath, Nephrology on Consult. HD TTS Nephro-Courtney Endo A: DM Lantus 10 Units HS ASHLEY, Regular ISS Heme/Onc A: Chronic Anemia, Vitamin D Def. Deuce, ID: A: PNA, Ear Infection? Rocephin/Azithromycin ENT Consult Blood Cultures NEGATIVE x 24 hours. Psych A: Hx of Anxiety, Hx of Depression Psychiatry on consult. MSK A: B/L BKA Ultram/Dilaudid Proph Heparin Q12 patient discussed with ICU Attending Sheba Francis, PGY- 1
--- NOTE | 2018-01-10 15:34 | RAD ---
HISTORY: pneumonia COMPARISON: 12/27/2017 FINDINGS: LUNGS: No active pulmonary disease. PLEURA: No significant pleural effusion identified, no pneumothorax apparent. CARDIOVASCULAR: CABG. Tunneled central venous dialysis catheter. OSSEOUS STRUCTURES: No significant abnormalities. VISUALIZED UPPER ABDOMEN: Normal. OTHER FINDINGS: None. IMPRESSION: No active disease.
--- NOTE | 2018-01-10 15:40 | CP.PCM.PN ---
Subjective - Date & Time of Evaluation Date of Evaluation: 01/10/18 Time of Evaluation: 15:37 - Subjective Subjective: Nephrology Consultation Note: Assessment: critical Shock ? septic Fluid overload/pulmonary congestion, Pneumonia chronic chest pain, A flutter Diabetic chronic Kidney Disease (E11.22) Hypertensive Chronic Kidney Disease (I12.0) End stage renal disease (N18.6) dependence on hemodialysis (Z99.2) (TTS) via AVF Anemia (D64.9), Hyperphosphatemia (E83.39), Secondary Hyperparathyroidism (E21.1 ), HTN (I12.0) CAD s/p CABG, diastolic CHF, parox A flutter/fib, intra-cardiac thrombus, hx of Heparin induced thrombocytopenia, hx of seizure, blindness Plan: if hemodynamic stable then plan for dialysis tomorrow as per TTS. Continue with Nephrovite 1 tab/day. last Hb 13.8 hence no HANNAH at present Continue with phos binders home dose BP control with meds as ordered. Glycemic control, Dialysis consistent diet Further work up/management as per primary team Dose meds/antibiotics for ESRD status. Avoid fleets enema/magnesium based laxatives. pt transferred to ICU. allowed to use permacath for IV access on emergency basis as no other IV access at present. d/w team to obtain alternative IV access at the earliest. Thanks for allowing me to participate in care of your patient. Will follow patient with you. Please call if any Qs Dr Eric Temple Office: [phone] reason for consult: ESRD HPI: Pt is a 37 y/o transgender with hx of ESRD on hemodialysis (TTS) via permacath, chronic anemia, hyperphosphatemia, secondary hyperparathyroidism, Diabetes Mellitus, hypertension, CAD s/p CABG, diastolic CHF, pA flutter/fib, intra-cardiac thrombus, Heparin induced thrombocytopenia in past presented with complaints of SOB and cough. admitted for pnuemonia. has chronic chest pain, denies palpitation, c/o chronic shortness of breath ROS: All other negative except as in HPI. pt had RT 01/10/18 due to low BP. he was lethargic Physical Examination: General Appearance: in no acute respiratory distress, co-operative . ill appearing Vitals reviewed and noted as below Head; Atraumatic, normocephalic ENT: no ulcers no thrush. Tongue is midline. Oropharynx: no rash or ulcers. EYES: Pt is blind both eyes Neck; supple no lymphadenopathy, no thyromegaly or bruit Lungs: Normal respiratory rate/effort. Breath sounds bilateral equal with b/l crackles/rale Heart: Normal rate. s1s2 normal. No rub or gallop. Extremities: no edema. No varicose veins. has b/l BKA. cool to touch Neurological: Patient is lethargic Skin: Warm and dry. Normal turgor. No rash. Palpitation: Normal elasticity for age Abdomen: Abdomen is soft. Bowel sounds +. There is no abdominal tenderness, no guarding/rigidity or organomegaly Psych: limited insight and has normal affect/mood MSK: no joint tenderness or swelling. Digits and nails normal, no deformity : kidney or bladder not palpable Access: permacath Labs/imaging reviewed. Past medical history, past surgical history, family history, social history, allergy reviewed and noted as below Family Hx: no hx of CKD. Non contributory Objective - Vital Signs/Intake and Output Vital Signs (last 24 hours): Temp Pulse Resp BP Pulse Ox 97.7 F 66 20 96/62 L 96 01/10/18 07:00 01/10/18 10:57 01/10/18 07:00 01/10/18 10:57 01/10/18 07:00 Intake and Output: 01/10/18 01/10/18 06:59 18:59 Intake Total 250 Balance 250 - Medications Medications: Current Medications Acetaminophen (Tylenol 325mg Tab) 650 mg PO Q6 PRN PRN Reason: Fever >100.4 F Albuterol/Ipratropium (Duoneb 3 Mg/0.5 Mg (3 Ml) Ud) 3 ml IH RQ4 [facility] Last Admin: 01/10/18 13:00 Dose: 3 ml Amiodarone HCl (Cordarone) 200 mg PO DAILY [facility] Last Admin: 01/10/18 10:00 Dose: Not Given Aspirin (Aspirin Chewable) 81 mg PO DAILY [facility] Last Admin: 01/10/18 10:25 Dose: 81 mg Calcium Carbonate (Oscal) 500 mg PO BID [facility] Last Admin: 01/10/18 10:26 Dose: 500 mg Carvedilol (Coreg) 25 mg PO BID [facility] Last Admin: 01/10/18 10:00 Dose: Not Given Docusate Sodium (Colace) 100 mg PO PRN PRN PRN Reason: Constipation Ergocalciferol (Drisdol 50,000 Intl Units Cap) 1 cap PO Q7D [facility] Hydromorphone HCl (Dilaudid) 1 mg IVP Q6H PRN PRN Reason: Pain, moderate (4-7) Last Admin: 01/10/18 02:32 Dose: 1 mg Azithromycin 500 mg/ Sodium (Chloride) 250 mls @ 250 mls/hr IVPB DAILY [facility] PRN Reason: Protocol Last Admin: 01/10/18 09:13 Dose: 250 mls/hr Ceftriaxone Sodium 1 gm/ (Dextrose) 100 mls @ 50 mls/30 min IVPB DAILY [facility] PRN Reason: Protocol Last Admin: 01/10/18 11:30 Dose: 50 mls/30 min Sodium Chloride (Sodium Chloride 0.9%) 250 mls @ 70 mls/hr IV .Q3H35M ONE Stop: 01/10/18 17:43 Insulin Glargine (Lantus) 10 unit SC [facility] Last Admin: 01/09/18 21:46 Dose: 10 units Insulin Human Regular (Novolin R) 0 unit SC Q6H [facility] PRN Reason: Protocol Isosorbide Mononitrate (Imdur) 60 mg PO DAILY [facility] Last Admin: 01/10/18 10:00 Dose: Not Given Lactulose (Enulose) 10 gm PO DAILY PRN Levetiracetam (Keppra) 500 mg PO BID [facility] Last Admin: 01/10/18 10:26 Dose: 500 mg Montelukast Sodium (Singulair) 10 mg PO [facility] Last Admin: 01/09/18 21:43 Dose: 10 mg Pantoprazole Sodium (Protonix Ec Tab) 20 mg PO DAILY [facility] Last Admin: 01/10/18 10:25 Dose: 20 mg Ranolazine (Ranexa) 500 mg PO BID [facility] Last Admin: 01/10/18 10:25 Dose: 500 mg Rosuvastatin Calcium (Crestor) 10 mg PO HS [facility] Last Admin: 01/09/18 21:46 Dose: 10 mg Tramadol HCl (Ultram) 50 mg PO ONCE PRN Last Admin: 01/08/18 11:57 Dose: 50 mg Valproate Sodium (Depakene Cap) 250 mg PO QID [facility] Last Admin: 01/10/18 13:50 Dose: 250 mg Vitamin B Complex/Vit C/Folic Acid (Nephro-Courtney) 1 tab PO 0800 [facility] Last Admin: 01/10/18 08:55 Dose: 1 tab - Labs Labs: 01/10/18 14:44 01/10/18 14:44
[2018-01-10 15:54] LABS: INR 1.2; PROTHROMBIN TIME 13.2 SECONDS (9.7-12.2)
[2018-01-10 16:33] LABS: CK-MB 0.6 ng/mL (0.0-3.38); TROPONIN I 0.134 ng/mL (0.00-0.120)
--- NOTE | 2018-01-10 19:23 | PCM.PROC ---
Procedures Attestation:: I certify that I have explained the specified Operation(s) or Procedure(s), risks, benefits and reasonable alternatives to the Patient and/or other person responsible. The opportunity was given to ask questions and all questions answered - Central Line Placement Left Femoral Triple Lumen Catheter Aseptic technique was employed throughout the procedure: Hand Hygiene done prior to procedure, Full sterile barriers (mask, hair cover, sterile gown, sterile gloves), Full body sterile drape, Chloraprep Antiseptic: 2 minute prep for Femoral CVP Time Out Performed: Yes Pt. Placed on Pulse Ox Monitor: Yes Central Line Prep: Chlorhexidine-Alcohol Combination Local Anesthesia Used: Lidocaine 1% Ultrasound Used for Placement: Yes Central Line Lumen Inserted: triple Central Line Length: 30 cm Post Procedure: Sutured in Place, Good Blood Return, All Ports Aspirated, Flushed, Capped, Sterile Dressing Applied Secured by: Suture Post procedure dressing: Clear vapor permeable, Chlorhexidine disc (Biopatch) Post Procedure X-Ray: No Patient Tolerated Procedure: Well Immediate Complications: Other (second site placement. Patient has severe atherosclerosis which makes the passing of the dilator extremely difficult, on both femoral veins.)
[2018-01-10] MEDS ORDERED: Iodixanol 320 MG/ML 100 ML BOTTLE IV ONE (20:21)
[2018-01-10] MEDS ORDERED: HYDROmorphone 0.5 mg/0.5 ml ISec IVP STA (22:02)
[2018-01-10] MEDS: (Lantus) Insulin Glargine, Recombinant SC SCH (22:05)
--- NOTE | 2018-01-10 22:11 | CT ---
EXAM: CT Angiography Chest With Intravenous Contrast EXAM DATE/TIME: Exam ordered 01/10/2018 4:30 PM CLINICAL HISTORY: 37 years old, male; Signs and symptoms; Shortness of breath; Additional info: R/O pe. TECHNIQUE: Axial computed tomographic angiography images of the chest with intravenous contrast using pulmonary embolism protocol. All CT scans at this facility use one or more dose reduction techniques, viz.: automated exposure control; ma/kV adjustment per patient size (including targeted exams where dose is matched to indication; i.e. head); or iterative reconstruction technique. MIP reconstructed images were created and reviewed. Coronal and sagittal reformatted images were created and reviewed. CONTRAST: 100 mL of visipaque 320 administered intravenously. COMPARISON: CT - ANGIOGRAPHY ABD ILEOFEM RUNOFF 2015-08-13 14:36 FINDINGS: Pulmonary arteries: There is enlargement of the left pulmonary artery with a maximum diameter of 2.5 cm. The main pulmonary artery measures 2.8 cm diameter. No pulmonary embolism.There is engorgement of the central pulmonary vasculature. There is a branch of the right pulmonary artery (interlobar branch) serving the right lower lobe which does not fill and appears calcified. Aorta: The ascending aorta measures 2.1 cm in diameter. There is diffuse advanced arteriosclerosis. Lungs: Patchy atelectasis/consolidation is noted in the anterior segment of the right upper lobe. Patchy consolidation and groundglass opacity is noted in the right middle lobe and the right lower lobe. Atelectasis/consolidation is seen in the left lower lobe patchy groundglass opacity with consolidation is noted in the left upper lobe. Pleural space: Unremarkable. No significant effusion. No pneumothorax. Heart: The heart is enlarged. The right ventricle appears small. There is left ventricular hypertrophy. No significant pericardial effusion. No evidence of RV dysfunction. Bones/joints: There has been a median sternotomy. No acute fracture. No dislocation. [place] spine suggests renal osteodystrophy. The Soft tissues: Unremarkable. Lymph nodes: Unremarkable. No enlarged lymph nodes. Tubes, lines and devices: The distal tips of a right internal jugular dual-lumen catheter are positioned in the right atrium and the intrahepatic IVC respectively. IMPRESSION: 1. No acute pulmonary embolism. 2. 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 3. Patchy atelectasis/consolidation with groundglass pneumonitis noted diffusely in both lungs as described above. 4. Left ventricular hypertrophy with small right ventricle. Cardiomegaly.
--- NOTE | 2018-01-10 22:46 | CON ---
DATE: 01/10/2018 REQUESTING PHYSICIAN: Dr. Li. REASON FOR CONSULTATION: Hearing loss. HISTORY OF PRESENT ILLNESS: This is a 37-year-old male with a 2-day history of right ear hearing loss, it is constant, moderate in intensity. There is no ear discharge. No tinnitus. No nasal congestion. No throat pain. PAST MEDICAL HISTORY: As noted in the chart by me. MEDICATIONS: As noted in the chart by me. ALLERGIES: TO ACETAMINOPHEN, TYLENOL, DIGOXIN, MILK, MORPHINE, OXYCODONE. PHYSICAL EXAMINATION: HEAD: Atraumatic and normocephalic. FACE: Good facial movements bilaterally. CONSTITUTIONAL: Well fed, well nourished. COMMUNICATION: Communicates well and appropriately. EXTERNAL NOSE AND EARS: No masses. No lesions. No erythema. No edema. INTERNAL NOSE AND EARS: Deviated septum. No masses. No lesions. No erythema. No edema. LIPS AND GUMS: No masses. No lesions. No erythema. No edema. EARS: TM intact on both sides. Possible fluid noted behind the right TM. NECK: Supple. THYROID: No thyromegaly. No goiter. LYMPH NODES: No lymphadenopathy of the neck. ASSESSMENT: 1. Right acute otitis media. 2. Deviated septum. PLAN: Continue antibiotics. Follow up as an outpatient in the office. Aurelio Hidalgo MD
[2018-01-11] MEDS: Albuterol-Ipratrop 3 mg / 0.5 (3 ml) UD IH SCH ×6 (00:46→19:37)
[2018-01-11 06:13] LABS: BASO % 0.3 % (0.0-2.0); EOS # 0.3 K/uL (0.0-0.7); EOS % 4.5 % (0.0-4.0); HEMOGLOBIN 10.2 g/dL (12.0-18.0); LYMPH # 3.3 K/uL (1.0-4.3); LYMPH % 43.5 % (20.0-40.0); MEAN CELL VOLUME 88.2 fL (80.0-94.0); MEAN CORPUSCULAR HEMOGLOBIN 28.3 pg (27.0-31.0); MEAN CORPUSCULAR HGB CONC 32.1 g/dL (33.0-37.0); MEAN PLATELET VOLUME 9.6 fL (7.2-11.7); MONO # 0.3 K/uL (0.0-0.8); MONO % 3.5 % (0.0-10.0); NEUT # 3.6 K/uL (1.8-7.0); NEUT % 48.2 % (50.0-75.0); NRBC % 0.1 % (0.0-2.0); RBC 3.59 Mil/uL (4.40-5.90); WHITE BLOOD COUNT 7.6 K/uL (4.8-10.8)
[2018-01-11 06:36] LABS: ALBUMIN 3.2 g/dL (3.5-5.0); CALCIUM 7.5 mg/dl (8.6-10.4)
[2018-01-11 06:42] LABS: TROPONIN I 0.113 ng/mL (0.00-0.120)
[2018-01-11] MEDS: (Novolin R) Insulin Human Regular 100 units/ml vial SC SCH ×4 (08:28→21:26)
[2018-01-11] MEDS: Multivitamin Vitamin B Complex (Nephro-Vite) Tab PO SCH (08:52)
[2018-01-11] MEDS: Ranolazine 500 mg Extended Release Tablets PO SCH ×2 (09:53→17:27)
[2018-01-11] MEDS: Pantoprazole 20 mg EC Tab PO SCH (09:53)
--- NOTE | 2018-01-11 10:33 | CARD ---
APPROVED REPORT EXAM: Two-dimensional and M-mode echocardiogram with Doppler and color Doppler. Other Information Quality : [employer] : INDICATION ELEVATED TROPONIN,ESRD 2D DIMENSIONS IVSd1.5 (0.7-1.1cm)LVDd3.5 (3.9-5.9cm) PWd1.7 (0.7-1.1cm)LVDs2.4 (2.5-4.0cm) FS (%) 31.3 %LVEF (%)60.1 (>50%) M-Mode DIMENSIONS RVDd2.11 (2.1-3.2cm)Left Atrium (MM)2.28 (2.5-4.0cm) IVSd1.81 (0.7-1.1cm)Aortic Root2.30 (2.2-3.7cm) LVDd3.61 (4.0-5.6cm)Aortic Cusp Exc.1.81 (1.5-2.0cm) PWd1.56 (0.7-1.1cm)FS (%) 16 % LVDs3.04 (2.0-3.8cm)LVEF (%)35 (>50%) Mitral Valve MV E Zttmtdbu369.8cm/sMV A Zezxyrgi18.9cm/sE/A ratio1.4 TDI E/Lateral E'0.0E/Medial E'0.0 Tricuspid Valve TR Peak Mglbyvil214ae/sTR Peak Gr.[id number] LEFT VENTRICLE There is moderate to severe concentric left ventricular hypertrophy. Left ventricle systolic function is moderately impaired. The Ejection Fraction is estimated at 35-40%. There is global hypokinesis of the left ventricle. The left ventricular diastolic function is normal. No left ventricle thrombus noted on this study. RIGHT VENTRICLE The right ventricle is normal size. The right ventricular systolic function is normal. ATRIA The left atrium size is normal. The right atrium size is normal. AORTIC VALVE The aortic valve is moderately sclerotic. The aortic valve is trileaflet. No aortic regurgitation is present. There is no aortic valvular stenosis. There is no aortic valvular vegetation. MITRAL VALVE Mitral annular calcification is mild to moderate. There is no evidence of mitral valve prolapse. There is no mitral valve stenosis. Mitral regurgitation is mild. TRICUSPID VALVE The tricuspid valve is normal in structure. There is mild tricuspid regurgitation. Right ventricular systolic pressure is estimated at 40-50 mmHg. There is mild-moderate pulmonary hypertension. There is no tricuspid valve prolapse or vegetation. There is no tricuspid valve stenosis. PULMONIC VALVE The pulmonary valve is normal in structure. There is mild pulmonic valvular regurgitation. There is no pulmonic valvular stenosis. GREAT VESSELS The aortic root is normal in size. PERICARDIAL EFFUSION There is no pericardial effusion. There is no pleural effusion. <Conclusion> There is moderate to severe concentric left ventricular hypertrophy. Left ventricle systolic function is moderately impaired. The Ejection Fraction is estimated at 35-40%. There is global hypokinesis of the left ventricle. The right ventricle is normal size. The right ventricular systolic function is normal. The left atrium size is normal. The right atrium size is normal. Mitral regurgitation is mild. There is mild tricuspid regurgitation. There is mild-moderate pulmonary hypertension. There is mild pulmonic valvular regurgitation.
[2018-01-11] MEDS: EPOETIN ALFA 4,000 UNIT/ML ML Dialysis IV SCH (12:18)
--- NOTE | 2018-01-11 13:36 | CP.PCM.PN ---
Subjective - Date & Time of Evaluation Date of Evaluation: 01/11/18 Time of Evaluation: 13:33 - Subjective Subjective: pt seen in icu had low bp still has bad cough doesnot feel well Objective - Vital Signs/Intake and Output Vital Signs (last 24 hours): Temp Pulse Resp BP Pulse Ox 97.4 F L 71 17 134/39 L 98 01/11/18 12:00 01/11/18 13:01 01/11/18 13:01 01/11/18 13:22 01/11/18 13:01 Intake and Output: 01/11/18 01/11/18 06:59 18:59 Intake Total 200 400 Balance 200 400 - Medications Medications: Current Medications Acetaminophen (Tylenol 325mg Tab) 650 mg PO Q6 PRN PRN Reason: Fever >100.4 F Albuterol/Ipratropium (Duoneb 3 Mg/0.5 Mg (3 Ml) Ud) 3 ml IH RQ6 [facility] Last Admin: 01/11/18 11:06 Dose: Not Given Amiodarone HCl (Cordarone) 200 mg PO DAILY [facility] Last Admin: 01/11/18 09:52 Dose: Not Given Aspirin (Aspirin Chewable) 81 mg PO DAILY [facility] Last Admin: 01/11/18 09:51 Dose: 81 mg Calcium Carbonate (Oscal) 500 mg PO BID [facility] Last Admin: 01/11/18 09:53 Dose: 500 mg Docusate Sodium (Colace) 100 mg PO PRN PRN PRN Reason: Constipation Epoetin Tom (Procrit) 4,000 unit IV TTS [facility] Last Admin: 01/11/18 12:18 Dose: 4,000 unit Ergocalciferol (Drisdol 50,000 Intl Units Cap) 1 cap PO Q7D [facility] Heparin Sodium (Porcine) (Heparin) 5,000 units SC Q12 [facility] Last Admin: 01/11/18 09:52 Dose: 5,000 units Hydromorphone HCl (Dilaudid) 1 mg IVP Q6H PRN PRN Reason: Pain, moderate (4-7) Last Admin: 01/10/18 02:32 Dose: 1 mg Azithromycin 500 mg/ Sodium (Chloride) 250 mls @ 250 mls/hr IVPB DAILY [facility] PRN Reason: Protocol Last Admin: 01/10/18 09:13 Dose: 250 mls/hr Ceftriaxone Sodium 1 gm/ (Dextrose) 100 mls @ 50 mls/30 min IVPB DAILY [facility] PRN Reason: Protocol Last Admin: 01/10/18 11:30 Dose: 50 mls/30 min Insulin Glargine (Lantus) 10 unit SC [facility] Last Admin: 01/10/18 22:05 Dose: Not Given Insulin Human Regular (Novolin R) 0 unit SC [facility] PRN Reason: Protocol Last Admin: 01/11/18 12:28 Dose: Not Given Lactulose (Enulose) 10 gm PO DAILY PRN Levetiracetam (Keppra) 500 mg PO BID [facility] Last Admin: 01/11/18 09:52 Dose: 500 mg Montelukast Sodium (Singulair) 10 mg PO [facility] Last Admin: 01/10/18 22:04 Dose: 10 mg Pantoprazole Sodium (Protonix Ec Tab) 20 mg PO DAILY [facility] Last Admin: 01/11/18 09:53 Dose: 20 mg Ranolazine (Ranexa) 500 mg PO BID [facility] Last Admin: 01/11/18 09:53 Dose: 500 mg Rosuvastatin Calcium (Crestor) 10 mg [address] [facility] Last Admin: 01/10/18 22:04 Dose: 10 mg Tramadol HCl (Ultram) 50 mg PO ONCE PRN Last Admin: 01/08/18 11:57 Dose: 50 mg Valproate Sodium (Depakene Cap) 250 mg PO QID [facility] Last Admin: 01/11/18 09:52 Dose: 250 mg Vitamin B Complex/Vit C/Folic Acid (Nephro-Courtney) 1 tab PO 0800 [facility] Last Admin: 01/11/18 08:52 Dose: 1 tab - Labs Labs: 01/11/18 06:08 01/11/18 06:08 PT 13.2 SECONDS (9.7-12.2) H 01/10/18 15:42 INR 1.2 01/10/18 15:42 APTT 35 SECONDS (21-34) H 01/10/18 15:42 - Constitutional Appears: In Acute Distress - Head Exam Head Exam: ATRAUMATIC - Eye Exam Eye Exam: Conjunctival injection - ENT Exam ENT Exam: Normal Oropharynx - Neck Exam Neck Exam: Full ROM - Respiratory Exam Respiratory Exam: Decreased Breath Sounds, Rales - Cardiovascular Exam Cardiovascular Exam: REGULAR RHYTHM - GI/Abdominal Exam GI & Abdominal Exam: Normal Bowel Sounds - Back Exam Back Exam: NORMAL INSPECTION - Neurological Exam Neurological Exam: Oriented x3 - Psychiatric Exam Psychiatric exam: Depressed - Skin Skin Exam: Pallor Assessment and Plan - Assessment and Plan (Free Text) Assessment: ac pnumonia ac hypotension dhara failiur cad chf dm Plan: cont as per orders
[2018-01-11] MEDS: Azithromycin 500 MG in Sodium Chloride 0.9% 250 ML IVPB SCH (14:09)
[2018-01-11] MEDS: cefTRIAXone IV 1 gm in Dextros 50 ML IVPB SCH (15:34)
--- NOTE | 2018-01-11 16:34 | CP.PCM.PN ---
Subjective - Date & Time of Evaluation Date of Evaluation: 01/11/18 Time of Evaluation: 16:24 - Subjective Subjective: Nephrology Consultation Note: Assessment: critical Shock ? septic Fluid overload/pulmonary congestion, Pneumonia chronic chest pain, A flutter Diabetic chronic Kidney Disease (E11.22) Hypertensive Chronic Kidney Disease (I12.0) End stage renal disease (N18.6) dependence on hemodialysis (Z99.2) (TTS) via AVF Anemia (D64.9), Hyperphosphatemia (E83.39), Secondary Hyperparathyroidism (E21.1 ), HTN (I12.0) CAD s/p CABG, diastolic CHF, parox A flutter/fib, intra-cardiac thrombus, hx of Heparin induced thrombocytopenia, hx of seizure, blindness Plan: plan for dialysis today as per TTS. Continue with Nephrovite 1 tab/day. last Hb 10.2 hence epogen with HD as ordered Continue with phos binders home dose BP control with meds as ordered. Glycemic control, Dialysis consistent diet Further work up/management as per primary team Dose meds/antibiotics for ESRD status. Avoid fleets enema/magnesium based laxatives. Thanks for allowing me to participate in care of your patient. Will follow patient with you. Please call if any Qs Dr Eric Temple Office: [phone] reason for consult: ESRD HPI: Pt is a 37 y/o transgender with hx of ESRD on hemodialysis (TTS) via permacath, chronic anemia, hyperphosphatemia, secondary hyperparathyroidism, Diabetes Mellitus, hypertension, CAD s/p CABG, diastolic CHF, pA flutter/fib, intra-cardiac thrombus, Heparin induced thrombocytopenia in past presented with complaints of SOB and cough. admitted for pnuemonia. has chronic chest pain, denies palpitation, c/o chronic shortness of breath ROS: All other negative except as in HPI. pt had [employer] 01/10/18 due to low BP. he was lethargic, transferred to ICU now better Physical Examination: General Appearance: in no acute respiratory distress, co-operative . ill appearing Vitals reviewed and noted as below Head; Atraumatic, normocephalic ENT: no ulcers no thrush. Tongue is midline. Oropharynx: no rash or ulcers. EYES: Pt is blind both eyes Neck; supple no lymphadenopathy, no thyromegaly or bruit Lungs: Normal respiratory rate/effort. Breath sounds bilateral equal with b/l crackles/rale Heart: Normal rate. s1s2 normal. No rub or gallop. Extremities: no edema. No varicose veins. has b/l BKA. cool to touch Neurological: Patient is sleepy Skin: Warm and dry. Normal turgor. No rash. Palpitation: Normal elasticity for age Abdomen: Abdomen is soft. Bowel sounds +. There is no abdominal tenderness, no guarding/rigidity or organomegaly Psych: limited insight and has normal affect/mood MSK: no joint tenderness or swelling. Digits and nails normal, no deformity : kidney or bladder not palpable Access: permacath Labs/imaging reviewed. Past medical history, past surgical history, family history, social history, allergy reviewed and noted as below Family Hx: no hx of CKD. Non contributory Objective - Vital Signs/Intake and Output Vital Signs (last 24 hours): Temp Pulse Resp BP Pulse Ox 97.5 F L 80 19 131/63 100 01/11/18 13:55 01/11/18 15:03 01/11/18 15:03 01/11/18 15:03 01/11/18 15:03 Intake and Output: 01/11/18 01/11/18 06:59 18:59 Intake Total 200 300 Balance 200 300 - Medications Medications: Current Medications Acetaminophen (Tylenol 325mg Tab) 650 mg PO Q6 PRN PRN Reason: Fever >100.4 F Albuterol/Ipratropium (Duoneb 3 Mg/0.5 Mg (3 Ml) Ud) 3 ml IH RQ6 [facility] Last Admin: 01/11/18 11:06 Dose: Not Given Amiodarone HCl (Cordarone) 200 mg PO DAILY [facility] Last Admin: 01/11/18 09:52 Dose: Not Given Aspirin (Aspirin Chewable) 81 mg PO DAILY [facility] Last Admin: 01/11/18 09:51 Dose: 81 mg Calcium Carbonate (Oscal) 500 mg PO BID [facility] Last Admin: 01/11/18 09:53 Dose: 500 mg Docusate Sodium (Colace) 100 mg PO PRN PRN PRN Reason: Constipation Epoetin Tom (Procrit) 4,000 unit IV TTS [facility] Last Admin: 01/11/18 12:18 Dose: 4,000 unit Ergocalciferol (Drisdol 50,000 Intl Units Cap) 1 cap PO Q7D [facility] Heparin Sodium (Porcine) (Heparin) 5,000 units SC Q12 [facility] Last Admin: 01/11/18 09:52 Dose: 5,000 units Hydromorphone HCl (Dilaudid) 1 mg IVP Q6H PRN PRN Reason: Pain, moderate (4-7) Last Admin: 01/10/18 02:32 Dose: 1 mg Azithromycin 500 mg/ Sodium (Chloride) 250 mls @ 250 mls/hr IVPB DAILY [facility] PRN Reason: Protocol Last Admin: 01/11/18 14:09 Dose: 250 mls/hr Ceftriaxone Sodium (Rocephin Iv 1 Gm Duplex) 50 mls @ 50 mls/30 min IVPB DAILY [facility] PRN Reason: Protocol Last Admin: 01/11/18 15:34 Dose: 50 mls/30 min Insulin Glargine (Lantus) 10 unit SC HS [facility] Last Admin: 01/10/18 22:05 Dose: Not Given Insulin Human Regular (Novolin R) 0 unit SC ACHS [facility] PRN Reason: Protocol Last Admin: 01/11/18 12:28 Dose: Not Given Lactulose (Enulose) 10 gm PO DAILY PRN Levetiracetam (Keppra) 500 mg PO BID [facility] Last Admin: 01/11/18 09:52 Dose: 500 mg Montelukast Sodium (Singulair) 10 mg PO HS [facility] Last Admin: 01/10/18 22:04 Dose: 10 mg Pantoprazole Sodium (Protonix Ec Tab) 20 mg PO DAILY [facility] Last Admin: 01/11/18 09:53 Dose: 20 mg Ranolazine (Ranexa) 500 mg PO BID [facility] Last Admin: 01/11/18 09:53 Dose: 500 mg Rosuvastatin Calcium (Crestor) 10 mg PO HS [facility] Last Admin: 01/10/18 22:04 Dose: 10 mg Tramadol HCl (Ultram) 50 mg PO ONCE PRN Last Admin: 01/08/18 11:57 Dose: 50 mg Valproate Sodium (Depakene Cap) 250 mg PO QID [facility] Last Admin: 01/11/18 14:08 Dose: 250 mg Vitamin B Complex/Vit C/Folic Acid (Nephro-Courtney) 1 tab PO 0800 [facility] Last Admin: 01/11/18 08:52 Dose: 1 tab - Labs Labs: 01/11/18 06:08 01/11/18 06:08 PT 13.2 SECONDS (9.7-12.2) H 01/10/18 15:42 INR 1.2 01/10/18 15:42 APTT 35 SECONDS (21-34) H 01/10/18 15:42
--- NOTE | 2018-01-11 20:14 | CP.CCUPN ---
CCU Subjective - Physician Review Events Since Last Encounter (Free Text): 01/11/18 20:14 37-year-old male with a history of multiple medical problems, end-stage renal disease, legally blind, peripheral vascular disease, neuropathy, admitted to the hospital with pneumonia. Patient transferred to ICU because of the shortness of breath and hypotension. Now patient is clinical stable. Procedure hemodialysis today. Tolerated. Clinical stable. Patient can be transferred to floor CCU Objective - Vital Signs / Intake & Output Vital Signs (Last 4 hours): Vital Signs Pulse Resp BP Pulse Ox 01/11/18 19:03 72 22 122/57 L 100 01/11/18 18:11 84 24 168/65 H 98 01/11/18 17:03 82 29 H 158/41 H 100 Intake and Output (Last 8hrs): Intake & Output 01/11/18 01/11/18 01/11/18 06:59 14:59 22:59 Intake Total 0 300 500 Balance 0 300 500 Weight 119 lb Intake: Intake, IV Amount 300 Right Proximal Port 300 Oral 0 300 200 Other: # Voids Urine, Voided 0 # Bowel Movements 1 0 - Medications Active Medications: Active Medications Generic Name Dose Route Start Last Admin Trade Name Freq PRN Reason Stop Dose Admin Acetaminophen 650 mg 01/09/18 17:13 Tylenol 325mg Tab PO Q6 PRN Fever >100.4 F Albuterol/Ipratropium 3 ml 01/11/18 12:00 01/11/18 19:37 Duoneb 3 Mg/0.5 Mg (3 Ml) Ud IH Not Given RQ6 [facility] Amiodarone HCl 200 mg 01/08/18 10:00 01/11/18 09:52 Cordarone PO Not Given DAILY [facility] Aspirin 81 mg 01/08/18 10:00 01/11/18 09:51 Aspirin Chewable PO 81 mg DAILY [facility] Administration Calcium Carbonate 500 mg 01/08/18 10:00 01/11/18 17:27 Oscal PO 500 mg BID [facility] Administration Docusate Sodium 100 mg 01/08/18 00:06 Colace PO PRN PRN Constipation Epoetin Tom 4,000 unit 01/11/18 10:00 01/11/18 12:18 Procrit IV 4,000 unit TTS [facility] Administration Ergocalciferol 1 cap 01/13/18 10:00 Drisdol 50,000 Intl Units Cap PO Q7D [facility] Heparin Sodium (Porcine) 5,000 units 01/10/18 22:00 01/11/18 09:52 Heparin SC 5,000 units Q12 [facility] Administration Hydromorphone HCl 1 mg 01/08/18 00:03 01/10/18 02:32 Dilaudid IVP 1 mg Q6H PRN Administration Pain, moderate (4-7) Azithromycin 500 mg/ Sodium 250 mls @ 250 mls/hr 01/08/18 10:00 01/11/18 14: 09 Chloride IVPB 250 mls/hr DAILY [facility] Administration Protocol Ceftriaxone Sodium 50 mls @ 50 mls/30 min 01/11/18 16:00 01/11/18 15:34 Rocephin Iv 1 Gm Duplex IVPB 50 mls/30 min DAILY [facility] Administration Protocol Insulin Glargine 10 unit 01/08/18 22:00 01/10/18 22:05 Lantus SC Not Given HS [facility] Insulin Human Regular 0 unit 01/11/18 07:30 01/11/18 17:26 Novolin R SC 2 unit ACHS [facility] Administration Protocol Lactulose 10 gm 01/09/18 10:00 Enulose PO DAILY PRN Levetiracetam 500 mg 01/08/18 10:00 01/11/18 17:25 Keppra PO 500 mg BID [facility] Administration Montelukast Sodium 10 mg 01/09/18 22:00 01/10/18 22:04 Singulair PO 10 mg HS [facility] Administration Pantoprazole Sodium 20 mg 01/08/18 10:00 01/11/18 09:53 Protonix Ec Tab PO 20 mg DAILY [facility] Administration Ranolazine 500 mg 01/08/18 10:00 01/11/18 17:27 Ranexa PO 500 mg BID [facility] Administration Rosuvastatin Calcium 10 mg 01/08/18 22:00 01/10/18 22:04 Crestor PO 10 mg HS [facility] Administration Tramadol HCl 50 mg 01/08/18 11:45 01/08/18 11:57 Ultram PO 50 mg ONCE PRN Administration Valproate Sodium 250 mg 01/08/18 10:00 01/11/18 17:25 Depakene Cap PO 250 mg QID [facility] Administration Vitamin B Complex/Vit C/Folic Acid 1 tab 01/08/18 08:00 01/11/18 08:52 Nephro-Courtney PO 1 tab 0800 [facility] Administration - Patient Studies Lab Studies: Microbiology Studies 01/10/18 15:42 MRSA Culture (Admit) - Final Naris MRSA DETECTED 01/10/18 14:44 Blood Culture - Preliminary Blood NO GROWTH AFTER 24 HOURS 01/10/18 14:38 Blood Culture - Preliminary Blood NO GROWTH AFTER 24 HOURS 01/07/18 22:22 Blood Culture - Preliminary Blood NO GROWTH AFTER 3 DAYS 01/07/18 22:22 Blood Culture - Preliminary Blood NO GROWTH AFTER 3 DAYS Lab Studies 01/11/18 01/11/18 01/11/18 Range/Units 16:05 11:07 07:44 WBC (4.8-10.8) K/uL RBC (4.40-5.90) Mil/uL Hgb (12.0-18.0) g/dL Hct (35.0-51.0) % MCV (80.0-94.0) fL MCH (27.0-31.0) pg MCHC (33.0-37.0) g/dL RDW (11.5-14.5) % Plt Count (130-400) K/uL MPV (7.2-11.7) fL Neut % (Auto) (50.0-75.0) % Lymph % (Auto) (20.0-40.0) % [place] % (Auto) (0.0-10.0) % Eos % (Auto) (0.0-4.0) % Baso % (Auto) (0.0-2.0) % Neut # (Auto) (1.8-7.0) K/uL Lymph # (Auto) (1.0-4.3) K/uL [place] # (Auto) (0.0-0.8) K/uL Eos # (Auto) (0.0-0.7) K/uL Baso # (Auto) (0.0-0.2) K/uL Differential Comment Sodium (132-148) mmol/L Potassium (3.6-5.2) mmol/L Chloride (98-107) mmol/L Carbon Dioxide (22-30) mmol/L Anion Gap (10-20) BUN (9-20) mg/dL Creatinine (0.8-1.5) mg/dL Est GFR ( Amer) Est GFR (Non-Af Amer) POC Glucose (mg/dL) 216 H 128 H 193 H (65-110) mg/dL Random Glucose (75-110) mg/dL Calcium (8.6-10.4) mg/dl Phosphorus (2.5-4.5) mg/dL Magnesium (1.6-2.3) mg/dL Total Bilirubin (0.2-1.3) mg/dL AST (17-59) U/L ALT (21-72) U/L Alkaline Phosphatase (38-126) U/L Troponin I (0.00-0.120) ng/mL Total Protein (6.3-8.3) g/dL Albumin (3.5-5.0) g/dL Globulin (2.2-3.9) gm/dL Albumin/Globulin Ratio (1.0-2.1) 01/11/18 01/11/18 01/10/18 Range/Units 06:08 06:08 22:25 WBC 7.6 (4.8-10.8) K/uL RBC 3.59 L (4.40-5.90) Mil/uL Hgb 10.2 L (12.0-18.0) g/dL Hct 31.7 L (35.0-51.0) % MCV 88.2 (80.0-94.0) fL MCH 28.3 (27.0-31.0) pg MCHC 32.1 L (33.0-37.0) g/dL RDW 18.0 H (11.5-14.5) % Plt Count 95 L D (130-400) K/uL MPV 9.6 (7.2-11.7) fL Neut % (Auto) 48.2 L (50.0-75.0) % Lymph % (Auto) 43.5 H (20.0-40.0) % [place] % (Auto) 3.5 (0.0-10.0) % Eos % (Auto) 4.5 H (0.0-4.0) % Baso % (Auto) 0.3 (0.0-2.0) % Neut # (Auto) 3.6 (1.8-7.0) K/uL Lymph # (Auto) 3.3 (1.0-4.3) K/uL [place] # (Auto) 0.3 (0.0-0.8) K/uL Eos # (Auto) 0.3 (0.0-0.7) K/uL Baso # (Auto) 0.0 (0.0-0.2) K/uL Differential Comment Sodium 140 (132-148) mmol/L Potassium 4.4 (3.6-5.2) mmol/L Chloride 100 (98-107) mmol/L Carbon Dioxide 22 (22-30) mmol/L Anion Gap 22 H (10-20) BUN 46 H (9-20) mg/dL Creatinine 4.8 H (0.8-1.5) mg/dL Est GFR ( Amer) 17 Est GFR (Non-Af Amer) 14 POC Glucose (mg/dL) (65-110) mg/dL Random Glucose 208 H (75-110) mg/dL Calcium 7.5 L (8.6-10.4) mg/dl Phosphorus 6.0 H (2.5-4.5) mg/dL Magnesium 2.0 (1.6-2.3) mg/dL Total Bilirubin 0.5 (0.2-1.3) mg/dL AST 281 H D (17-59) U/L ALT 229 H D (21-72) U/L Alkaline Phosphatase 136 H D (38-126) U/L Troponin I 0.1130 0.1300 H* (0.00-0.120) ng/mL Total Protein 6.5 (6.3-8.3) g/dL Albumin 3.2 L (3.5-5.0) g/dL Globulin 3.3 (2.2-3.9) gm/dL Albumin/Globulin Ratio 1.0 (1.0-2.1) 01/10/18 Range/Units 21:01 WBC (4.8-10.8) K/uL RBC (4.40-5.90) Mil/uL Hgb (12.0-18.0) g/dL Hct (35.0-51.0) % MCV (80.0-94.0) fL MCH (27.0-31.0) pg MCHC (33.0-37.0) g/dL RDW (11.5-14.5) % Plt Count (130-400) K/uL MPV (7.2-11.7) fL Neut % (Auto) (50.0-75.0) % Lymph % (Auto) (20.0-40.0) % [place] % (Auto) (0.0-10.0) % Eos % (Auto) (0.0-4.0) % Baso % (Auto) (0.0-2.0) % Neut # (Auto) (1.8-7.0) K/uL Lymph # (Auto) (1.0-4.3) K/uL [place] # (Auto) (0.0-0.8) K/uL Eos # (Auto) (0.0-0.7) K/uL Baso # (Auto) (0.0-0.2) K/uL Differential Comment Sodium (132-148) mmol/L Potassium (3.6-5.2) mmol/L Chloride (98-107) mmol/L Carbon Dioxide (22-30) mmol/L Anion Gap (10-20) BUN (9-20) mg/dL Creatinine (0.8-1.5) mg/dL Est GFR ( Amer) Est GFR (Non-Af Amer) POC Glucose (mg/dL) 90 (65-110) mg/dL Random Glucose (75-110) mg/dL Calcium (8.6-10.4) mg/dl Phosphorus (2.5-4.5) mg/dL Magnesium (1.6-2.3) mg/dL Total Bilirubin (0.2-1.3) mg/dL AST (17-59) U/L ALT (21-72) U/L Alkaline Phosphatase (38-126) U/L Troponin I (0.00-0.120) ng/mL Total Protein (6.3-8.3) g/dL Albumin (3.5-5.0) g/dL Globulin (2.2-3.9) gm/dL Albumin/Globulin Ratio (1.0-2.1) Laboratory Results - last 24 hr 01/10/18 01/10/18 01/11/18 21:01 22:25 06:08 WBC RBC Hgb Hct MCV MCH MCHC RDW Plt Count MPV Neut % (Auto) Lymph % (Auto) [place] % (Auto) Eos % (Auto) Baso % (Auto) Neut # (Auto) Lymph # (Auto) [place] # (Auto) Eos # (Auto) Baso # (Auto) Differential Comment Sodium 140 Potassium 4.4 Chloride 100 Carbon Dioxide 22 Anion Gap 22 H BUN 46 H Creatinine 4.8 H Est GFR ( Amer) 17 Est GFR (Non-Af Amer) 14 POC Glucose (mg/dL) 90 Random Glucose 208 H Calcium 7.5 L Phosphorus 6.0 H Magnesium 2.0 Total Bilirubin 0.5 AST 281 H D ALT 229 H D Alkaline Phosphatase 136 H D Troponin I 0.1300 H* 0.1130 Total Protein 6.5 Albumin 3.2 L Globulin 3.3 Albumin/Globulin Ratio 1.0 01/11/18 01/11/18 01/11/18 06:08 07:44 11:07 WBC 7.6 RBC 3.59 L Hgb 10.2 L Hct 31.7 L MCV 88.2 MCH 28.3 MCHC 32.1 L RDW 18.0 H Plt Count 95 L D MPV 9.6 Neut % (Auto) 48.2 L Lymph % (Auto) 43.5 H [place] % (Auto) 3.5 Eos % (Auto) 4.5 H Baso % (Auto) 0.3 Neut # (Auto) 3.6 Lymph # (Auto) 3.3 [place] # (Auto) 0.3 Eos # (Auto) 0.3 Baso # (Auto) 0.0 Differential Comment Sodium Potassium Chloride Carbon Dioxide Anion Gap BUN Creatinine Est GFR ( Amer) Est GFR (Non-Af Amer) POC Glucose (mg/dL) 193 H 128 H Random Glucose Calcium Phosphorus Magnesium Total Bilirubin AST ALT Alkaline Phosphatase Troponin I Total Protein Albumin Globulin Albumin/Globulin Ratio 01/11/18 16:05 WBC RBC Hgb Hct MCV MCH MCHC RDW Plt Count MPV Neut % (Auto) Lymph % (Auto) [place] % (Auto) Eos % (Auto) Baso % (Auto) Neut # (Auto) Lymph # (Auto) [place] # (Auto) Eos # (Auto) Baso # (Auto) Differential Comment Sodium Potassium Chloride Carbon Dioxide Anion Gap BUN Creatinine Est GFR ( Amer) Est GFR (Non-Af Amer) POC Glucose (mg/dL) 216 H Random Glucose Calcium Phosphorus Magnesium Total Bilirubin AST ALT Alkaline Phosphatase Troponin I Total Protein Albumin Globulin Albumin/Globulin Ratio Fingerstick Blood Sugar Results: 216 Critical Care Progress Note - Nutrition Nutrition: Nutrition Category Date Time Status Consistent Carbohydrate [DIET] Diets 01/08/18 Breakfast Active
--- NOTE | 2018-01-11 21:03 | PN ---
DATE: SUBJECTIVE: The patient is seen. He is in ICU because of low blood pressure. The patient is still med seeking, but today he is doing much better. He was taking Zoloft, but the patient was taking off as patient was given Ultram to avoid possible drug-drug interaction causing serotonin syndrome. The patient is now taking for pain still Dilaudid 1 mg IV every 6 hours p.r.n. and also on Tramadol which was on hold. VITAL SIGNS: Temperature is 97.5, pulse 80, blood pressure 131/63, respirations 19, oxygen saturation 100%. REVIEW OF SYSTEMS: GENERAL: The patient is seen in the ICU with staff. He is cooperative, alert, not complaining of pain. SKIN: No pruritus. HEENT: Legally blind. No headache. NECK: Supple. RESPIRATORY: No dyspnea. CARDIOVASCULAR: No chest pain. GASTROINTESTINAL: No nausea. No vomiting. EXTREMITIES: The patient is bilateral amputee. He has chronic neuropathic pain. NEUROLOGICAL: Alert and oriented x3. GENITOURINARY: No dysuria. MENTAL STATUS EXAMINATION: Well-developed male, who looks stated age. Oriented x3. He is much better compared to yesterday. His blood pressure is much better also. Speech is spontaneous. Affect is reactive. Mood is less anxious. Thought process, coherent. Thought content, less med seeking. No overt psychosis. No suicidal or homicidal ideation. Attention and memory seem to be fair. Insight and judgment limited. Impulse control is fair at this time. IMPRESSION: History of recurrent depression, anxiety, and mood disorder as well as history of drug-induced delirium as well as diabetes, endstage renal disease, on dialysis. PLAN AND RECOMMENDATION: The patient is seen, meds reviewed. We will keep patient off Zoloft for now. This patient may be taking Ultram. Continue Dilaudid as ordered. Continue treatment plan as outlined. We will monitor his blood pressure accordingly. Dale Joseph MD MTDD
[2018-01-11] MEDS: (Lantus) Insulin Glargine, Recombinant SC SCH (22:34)
--- NOTE | 2018-01-11 23:26 | CP.PCM.PN ---
Subjective - Date & Time of Evaluation Date of Evaluation: 01/11/18 Time of Evaluation: 09:00 - Subjective Subjective: Events reviewed. ICU transfer. Severe sepsis. Objective - Vital Signs/Intake and Output Vital Signs (last 24 hours): Temp Pulse Resp BP Pulse Ox 98.7 F 65 23 124/59 L 100 01/11/18 20:00 01/11/18 22:03 01/11/18 22:03 01/11/18 22:03 01/11/18 22:03 Intake and Output: 01/11/18 01/12/18 18:59 06:59 Intake Total 800 0 Balance 800 0 - Medications Medications: Current Medications Acetaminophen (Tylenol 325mg Tab) 650 mg PO Q6 PRN PRN Reason: Fever >100.4 F Albuterol/Ipratropium (Duoneb 3 Mg/0.5 Mg (3 Ml) Ud) 3 ml IH RQ6 [facility] Last Admin: 01/11/18 19:37 Dose: Not Given Amiodarone HCl (Cordarone) 200 mg PO DAILY [facility] Last Admin: 01/11/18 09:52 Dose: Not Given Aspirin (Aspirin Chewable) 81 mg PO DAILY [facility] Last Admin: 01/11/18 09:51 Dose: 81 mg Calcium Carbonate (Oscal) 500 mg PO BID [facility] Last Admin: 01/11/18 17:27 Dose: 500 mg Docusate Sodium (Colace) 100 mg PO PRN PRN PRN Reason: Constipation Epoetin Tom (Procrit) 4,000 unit IV TTS [facility] Last Admin: 01/11/18 12:18 Dose: 4,000 unit Ergocalciferol (Drisdol 50,000 Intl Units Cap) 1 cap PO Q7D [facility] Heparin Sodium (Porcine) (Heparin) 5,000 units SC Q12 [facility] Last Admin: 01/11/18 22:39 Dose: 5,000 units Hydromorphone HCl (Dilaudid) 1 mg IVP Q6H PRN PRN Reason: Pain, moderate (4-7) Last Admin: 01/10/18 02:32 Dose: 1 mg Azithromycin 500 mg/ Sodium (Chloride) 250 mls @ 250 mls/hr IVPB DAILY [facility] PRN Reason: Protocol Last Admin: 01/11/18 14:09 Dose: 250 mls/hr Ceftriaxone Sodium (Rocephin Iv 1 Gm Duplex) 50 mls @ 50 mls/30 min IVPB DAILY [facility] PRN Reason: Protocol Last Admin: 01/11/18 15:34 Dose: 50 mls/30 min Insulin Glargine (Lantus) 10 unit SC [facility] Last Admin: 01/11/18 22:34 Dose: 10 units Insulin Human Regular (Novolin R) 0 unit SC [facility] PRN Reason: Protocol Last Admin: 01/11/18 21:26 Dose: Not Given Lactulose (Enulose) 10 gm PO DAILY [facility]N Levetiracetam (Keppra) 500 mg PO BID [facility] Last Admin: 01/11/18 17:25 Dose: 500 mg Montelukast Sodium (Singulair) 10 mg PO [facility] Last Admin: 01/11/18 22:37 Dose: 10 mg Pantoprazole Sodium (Protonix Ec Tab) 20 mg PO DAILY [facility] Last Admin: 01/11/18 09:53 Dose: 20 mg Ranolazine (Ranexa) 500 mg PO BID [facility] Last Admin: 01/11/18 17:27 Dose: 500 mg Rosuvastatin Calcium (Crestor) 10 mg PO [facility] Last Admin: 01/11/18 22:37 Dose: 10 mg Tramadol HCl (Ultram) 50 mg PO ONCE [facility] Last Admin: 01/08/18 11:57 Dose: 50 mg Valproate Sodium (Depakene Cap) 250 mg PO QID [facility] Last Admin: 01/11/18 22:37 Dose: 250 mg Vitamin B Complex/Vit C/Folic Acid (Nephro-Courtney) 1 tab PO 0800 [facility] Last Admin: 01/11/18 08:52 Dose: 1 tab - Labs Labs: 01/11/18 06:08 01/11/18 06:08 PT 13.2 SECONDS (9.7-12.2) H 01/10/18 15:42 INR 1.2 01/10/18 15:42 APTT 35 SECONDS (21-34) H 01/10/18 15:42 - Constitutional Appears: Well, Non-toxic, Toxic - Respiratory Exam Respiratory Exam: Wheezes, NORMAL BREATHING PATTERN - Cardiovascular Exam Cardiovascular Exam: Irregular Rhythm, Rubs, +S1, +S2, +S4, Murmur. absent: JVD Additional comments: +Permcath - GI/Abdominal Exam GI & Abdominal Exam: Normal Bowel Sounds. absent: Organomegaly Assessment and Plan - Assessment and Plan (Free Text) Assessment: 37 year old with severe sepsis due to health care associated PNA, ABX, bronchodilators, pulmonary toilet Atrial flutter failed CVA prophylaxis due to GI bleeding, now in NSR with amiodarone HTN is chronic not treated during active infection DM brittle poorly controlled ESRD on HD [facility] multiple amputations; s/p CABG with failed grafts 2D echo images viewed by myself on this admission: EF 45-50%, elevated left atrial pressure.
[2018-01-12] MEDS: Albuterol-Ipratrop 3 mg / 0.5 (3 ml) UD IH SCH ×3 (01:12→13:17)
--- NOTE | 2018-01-12 08:25 | CP.PCM.PN ---
Subjective - Date & Time of Evaluation Date of Evaluation: 01/12/18 Time of Evaluation: 08:24 - Subjective Subjective: Feels better. Objective - Vital Signs/Intake and Output Vital Signs (last 24 hours): Temp Pulse Resp BP Pulse Ox 98.2 F 59 L 21 149/65 99 01/12/18 04:00 01/12/18 06:03 01/12/18 06:03 01/12/18 06:03 01/12/18 04:00 Intake and Output: 01/12/18 01/12/18 06:59 18:59 Intake Total 150 Balance 150 - Medications Medications: Current Medications Acetaminophen (Tylenol 325mg Tab) 650 mg PO Q6 PRN PRN Reason: Fever >100.4 F Albuterol/Ipratropium (Duoneb 3 Mg/0.5 Mg (3 Ml) Ud) 3 ml IH RQ6 [facility] Last Admin: 01/12/18 01:12 Dose: Not Given Amiodarone HCl (Cordarone) 200 mg PO DAILY [facility] Last Admin: 01/11/18 09:52 Dose: Not Given Aspirin (Aspirin Chewable) 81 mg PO DAILY [facility] Last Admin: 01/11/18 09:51 Dose: 81 mg Calcium Carbonate (Oscal) 500 mg PO BID [facility] Last Admin: 01/11/18 17:27 Dose: 500 mg Docusate Sodium (Colace) 100 mg PO PRN PRN PRN Reason: Constipation Epoetin Tom (Procrit) 4,000 unit IV TTS [facility] Last Admin: 01/11/18 12:18 Dose: 4,000 unit Ergocalciferol (Drisdol 50,000 Intl Units Cap) 1 cap PO Q7D [facility] Heparin Sodium (Porcine) (Heparin) 5,000 units SC Q12 [facility] Last Admin: 01/11/18 22:39 Dose: 5,000 units Hydromorphone HCl (Dilaudid) 1 mg IVP Q6H PRN PRN Reason: Pain, moderate (4-7) Last Admin: 01/10/18 02:32 Dose: 1 mg Azithromycin 500 mg/ Sodium (Chloride) 250 mls @ 250 mls/hr IVPB DAILY [facility] PRN Reason: Protocol Last Admin: 01/11/18 14:09 Dose: 250 mls/hr Ceftriaxone Sodium (Rocephin Iv 1 Gm Duplex) 50 mls @ 50 mls/30 min IVPB DAILY [facility] PRN Reason: Protocol Last Admin: 01/11/18 15:34 Dose: 50 mls/30 min Insulin Glargine (Lantus) 10 unit SC [facility] Last Admin: 01/11/18 22:34 Dose: 10 units Insulin Human Regular (Novolin R) 0 unit SC ACHS [facility] PRN Reason: Protocol Last Admin: 01/11/18 21:26 Dose: Not Given Lactulose (Enulose) 10 gm PO DAILY PRN Levetiracetam (Keppra) 500 mg PO BID [facility] Last Admin: 01/11/18 17:25 Dose: 500 mg Montelukast Sodium (Singulair) 10 mg PO [facility] Last Admin: 01/11/18 22:37 Dose: 10 mg Pantoprazole Sodium (Protonix Ec Tab) 20 mg PO DAILY [facility] Last Admin: 01/11/18 09:53 Dose: 20 mg Ranolazine (Ranexa) 500 mg PO BID [facility] Last Admin: 01/11/18 17:27 Dose: 500 mg Rosuvastatin Calcium (Crestor) 10 mg PO [facility] Last Admin: 01/11/18 22:37 Dose: 10 mg Tramadol HCl (Ultram) 50 mg PO ONCE PRN Last Admin: 01/08/18 11:57 Dose: 50 mg Valproate Sodium (Depakene Cap) 250 mg PO QID [facility] Last Admin: 01/11/18 22:37 Dose: 250 mg Vitamin B Complex/Vit C/Folic Acid (Nephro-Courtney) 1 tab PO 0800 [facility] Last Admin: 01/11/18 08:52 Dose: 1 tab - Labs Labs: 01/11/18 06:08 01/11/18 06:08 PT 13.2 SECONDS (9.7-12.2) H 01/10/18 15:42 INR 1.2 01/10/18 15:42 APTT 35 SECONDS (21-34) H 01/10/18 15:42 - Constitutional Appears: Well, Non-toxic - Respiratory Exam Respiratory Exam: Wheezes, NORMAL BREATHING PATTERN - Cardiovascular Exam Cardiovascular Exam: REGULAR RHYTHM, RRR, +S1, +S2, +S4, Murmur. absent: JVD Additional comments: Billateral BKA; Permcath - GI/Abdominal Exam GI & Abdominal Exam: Normal Bowel Sounds. absent: Organomegaly Assessment and Plan - Assessment and Plan (Free Text) Assessment: 37 year old with severe sepsis due to health care associated PNA, ABX, bronchodilators, pulmonary toilet Atrial flutter failed CVA prophylaxis due to GI bleeding, now in NSR with amiodarone HTN is chronic not treated during active infection DM brittle poorly controlled ESRD on HD ASHD multiple amputations; s/p CABG with failed grafts 2D echo images viewed by myself on this admission: EF 45-50%, elevated left atrial pressure.
[2018-01-12] MEDS: (Novolin R) Insulin Human Regular 100 units/ml vial SC SCH ×4 (08:28→22:29)
[2018-01-12] MEDS ORDERED: cefTRIAXone IV 1 gm in Dextros 50 ML IVPB SCH (10:00)
[2018-01-12] MEDS: Azithromycin 500 MG in Sodium Chloride 0.9% 250 ML IVPB SCH (10:00)
[2018-01-12] MEDS: cefTRIAXone IV 1 gm in Dextros 50 ML IVPB SCH (10:00)
[2018-01-12] MEDS: Ranolazine 500 mg Extended Release Tablets PO SCH ×2 (11:14→17:44)
[2018-01-12] MEDS: Pantoprazole 20 mg EC Tab PO SCH (11:14)
[2018-01-12] MEDS: Multivitamin Vitamin B Complex (Nephro-Vite) Tab PO SCH (11:15)
--- NOTE | 2018-01-12 11:43 | CP.PCM.PN ---
Subjective - Date & Time of Evaluation Date of Evaluation: 01/12/18 Time of Evaluation: 11:41 - Subjective Subjective: persistant cough Objective - Vital Signs/Intake and Output Vital Signs (last 24 hours): Temp Pulse Resp BP Pulse Ox 98 F 75 14 105/88 100 01/12/18 08:00 01/12/18 09:00 01/12/18 09:00 01/12/18 08:04 01/12/18 09:00 Intake and Output: 01/12/18 01/12/18 06:59 18:59 Intake Total 150 420 Balance 150 420 - Medications Medications: Current Medications Acetaminophen (Tylenol 325mg Tab) 650 mg PO Q6 PRN PRN Reason: Fever >100.4 F Albuterol/Ipratropium (Duoneb 3 Mg/0.5 Mg (3 Ml) Ud) 3 ml IH RQ6 [facility] Last Admin: 01/12/18 01:12 Dose: Not Given Amiodarone HCl (Cordarone) 200 mg PO DAILY [facility] Last Admin: 01/12/18 11:13 Dose: 200 mg Aspirin (Aspirin Chewable) 81 mg PO DAILY [facility] Last Admin: 01/12/18 11:12 Dose: 81 mg Calcium Carbonate (Oscal) 500 mg PO BID [facility] Last Admin: 01/12/18 11:14 Dose: 500 mg Docusate Sodium (Colace) 100 mg PO PRN PRN PRN Reason: Constipation Epoetin Tom (Procrit) 4,000 unit IV TTS [facility] Last Admin: 01/11/18 12:18 Dose: 4,000 unit Ergocalciferol (Drisdol 50,000 Intl Units Cap) 1 cap PO Q7D [facility] Heparin Sodium (Porcine) (Heparin) 5,000 units SC Q12 [facility] Last Admin: 01/12/18 10:00 Dose: 5,000 units Hydromorphone HCl (Dilaudid) 1 mg IVP Q6H PRN PRN Reason: Pain, moderate (4-7) Last Admin: 01/10/18 02:32 Dose: 1 mg Azithromycin 500 mg/ Sodium (Chloride) 250 mls @ 250 mls/hr IVPB DAILY [facility] PRN Reason: Protocol Last Admin: 01/11/18 14:09 Dose: 250 mls/hr Ceftriaxone Sodium (Rocephin Iv 1 Gm Duplex) 50 mls @ 50 mls/30 min IVPB DAILY [facility] PRN Reason: Protocol Last Admin: 01/12/18 10:00 Dose: 50 mls/30 min Insulin Glargine (Lantus) 10 unit SC [facility] Last Admin: 01/11/18 22:34 Dose: 10 units Insulin Human Regular (Novolin R) 0 unit SC [facility] PRN Reason: Protocol Last Admin: 01/12/18 08:28 Dose: Not Given Lactulose (Enulose) 10 gm PO DAILY PRN Levetiracetam (Keppra) 500 mg PO BID [facility] Last Admin: 01/12/18 10:30 Dose: 500 mg Montelukast Sodium (Singulair) 10 mg PO [facility] Last Admin: 01/11/18 22:37 Dose: 10 mg Pantoprazole Sodium (Protonix Ec Tab) 20 mg PO DAILY [facility] Last Admin: 01/12/18 11:14 Dose: 20 mg Ranolazine (Ranexa) 500 mg PO BID [facility] Last Admin: 01/12/18 11:14 Dose: 500 mg Rosuvastatin Calcium (Crestor) 10 mg PO [facility] Last Admin: 01/11/18 22:37 Dose: 10 mg Tramadol HCl (Ultram) 50 mg PO ONCE PRN Last Admin: 01/08/18 11:57 Dose: 50 mg Valproate Sodium (Depakene Cap) 250 mg PO QID [facility] Last Admin: 01/11/18 22:37 Dose: 250 mg Vitamin B Complex/Vit C/Folic Acid (Nephro-Courtney) 1 tab PO 0800 [facility] Last Admin: 01/12/18 11:15 Dose: 1 tab - Labs Labs: 01/11/18 06:08 01/11/18 06:08 PT 13.2 SECONDS (9.7-12.2) H 01/10/18 15:42 INR 1.2 01/10/18 15:42 APTT 35 SECONDS (21-34) H 01/10/18 15:42 - Constitutional Appears: In Acute Distress - Head Exam Head Exam: ATRAUMATIC - Eye Exam Eye Exam: Conjunctival injection - ENT Exam ENT Exam: Mucous Membranes Moist - Neck Exam Neck Exam: Full ROM - Respiratory Exam Respiratory Exam: Decreased Breath Sounds - Cardiovascular Exam Cardiovascular Exam: REGULAR RHYTHM - GI/Abdominal Exam GI & Abdominal Exam: Normal Bowel Sounds - Back Exam Back Exam: CVA tenderness (L) - Neurological Exam Neurological Exam: Oriented x3 - Psychiatric Exam Psychiatric exam: Depressed - Skin Skin Exam: Pallor Assessment and Plan - Assessment and Plan (Free Text) Assessment: persistant cough hpotension improved chf esrf dm Plan: will order cough syrap
[2018-01-12] MEDS: Promethazine DM 6.25 mg-15 mg/5 ml Syrup PO PRN (12:36)
--- NOTE | 2018-01-12 15:09 | CP.PCM.PN ---
Subjective - Date & Time of Evaluation Date of Evaluation: 01/12/18 Time of Evaluation: 15:08 - Subjective Subjective: Nephrology Consultation Note: Assessment:stable Shock ? septic: improved Fluid overload/pulmonary congestion, Pneumonia chronic chest pain, A flutter Diabetic chronic Kidney Disease (E11.22) Hypertensive Chronic Kidney Disease (I12.0) End stage renal disease (N18.6) dependence on hemodialysis (Z99.2) (TTS) via AVF Anemia (D64.9), Hyperphosphatemia (E83.39), Secondary Hyperparathyroidism (E21.1 ), HTN (I12.0) CAD s/p CABG, diastolic CHF, parox A flutter/fib, intra-cardiac thrombus, hx of Heparin induced thrombocytopenia, hx of seizure, blindness Plan: plan for dialysis saturday as per TTS. Continue with Nephrovite 1 tab/day. last Hb 10.2 hence epogen with HD as ordered Continue with phos binders home dose BP control with meds as ordered. Glycemic control, Dialysis consistent diet Further work up/management as per primary team Dose meds/antibiotics for ESRD status. Avoid fleets enema/magnesium based laxatives. Thanks for allowing me to participate in care of your patient. Will follow patient with you. Please call if any Qs. d/w team Dr Eric Temple Office: [phone] reason for consult: ESRD HPI: Pt is a 37 y/o transgender with hx of ESRD on hemodialysis (TTS) via permacath, chronic anemia, hyperphosphatemia, secondary hyperparathyroidism, Diabetes Mellitus, hypertension, CAD s/p CABG, diastolic CHF, pA flutter/fib, intra-cardiac thrombus, Heparin induced thrombocytopenia in past presented with complaints of SOB and cough. admitted for pnuemonia. has chronic chest pain, denies palpitation, c/o chronic shortness of breath ROS: All other negative except as in HPI. pt had PATIENT ESCORT 01/10/18 due to low BP. he was lethargic, transferred to ICU now better improved SOB. has cough Physical Examination: General Appearance: in no acute respiratory distress, co-operative . ill appearing Vitals reviewed and noted as below Head; Atraumatic, normocephalic ENT: no ulcers no thrush. Tongue is midline. Oropharynx: no rash or ulcers. EYES: Pt is blind both eyes Neck; supple no lymphadenopathy, no thyromegaly or bruit Lungs: Normal respiratory rate/effort. Breath sounds bilateral equal with b/l crackles/rale Heart: Normal rate. s1s2 normal. No rub or gallop. Extremities: no edema. No varicose veins. has b/l BKA. cool to touch Neurological: Patient is awake follow commands Skin: Warm and dry. Normal turgor. No rash. Palpitation: Normal elasticity for age Abdomen: Abdomen is soft. Bowel sounds +. There is no abdominal tenderness, no guarding/rigidity or organomegaly Psych: limited insight and has normal affect/mood MSK: no joint tenderness or swelling. Digits and nails normal, no deformity : kidney or bladder not palpable Access: permacath Labs/imaging reviewed. Past medical history, past surgical history, family history, social history, allergy reviewed and noted as below Family Hx: no hx of CKD. Non contributory Objective - Vital Signs/Intake and Output Vital Signs (last 24 hours): Temp Pulse Resp BP Pulse Ox 98 F 75 14 105/88 100 01/12/18 08:00 01/12/18 09:00 01/12/18 09:00 01/12/18 08:04 01/12/18 09:00 Intake and Output: 01/12/18 01/12/18 06:59 18:59 Intake Total 150 420 Balance 150 420 - Medications Medications: Current Medications Acetaminophen (Tylenol 325mg Tab) 650 mg PO Q6 PRN PRN Reason: Fever >100.4 F Albuterol/Ipratropium (Duoneb 3 Mg/0.5 Mg (3 Ml) Ud) 3 ml IH RQ6 [facility] Last Admin: 01/12/18 13:17 Dose: Not Given Amiodarone HCl (Cordarone) 200 mg PO DAILY [facility] Last Admin: 01/12/18 11:13 Dose: 200 mg Aspirin (Aspirin Chewable) 81 mg PO DAILY [facility] Last Admin: 01/12/18 11:40 Dose: Not Given Calcium Carbonate (Oscal) 500 mg PO BID [facility] Last Admin: 01/12/18 11:14 Dose: 500 mg Docusate Sodium (Colace) 100 mg PO PRN PRN PRN Reason: Constipation Epoetin Tom (Procrit) 4,000 unit IV TTS [facility] Last Admin: 01/11/18 12:18 Dose: 4,000 unit Ergocalciferol (Drisdol 50,000 Intl Units Cap) 1 cap PO Q7D [facility] Heparin Sodium (Porcine) (Heparin) 5,000 units SC Q12 [facility] Last Admin: 01/12/18 10:00 Dose: 5,000 units Hydromorphone HCl (Dilaudid) 1 mg IVP Q6H PRN PRN Reason: Pain, moderate (4-7) Last Admin: 01/10/18 02:32 Dose: 1 mg Azithromycin 500 mg/ Sodium (Chloride) 250 mls @ 250 mls/hr IVPB DAILY [facility] PRN Reason: Protocol Last Admin: 01/12/18 10:00 Dose: 250 mls/hr Ceftriaxone Sodium (Rocephin Iv 1 Gm Duplex) 50 mls @ 50 mls/30 min IVPB DAILY [facility] PRN Reason: Protocol Last Admin: 01/12/18 10:00 Dose: 50 mls/30 min Insulin Glargine (Lantus) 10 unit SC [facility] Last Admin: 01/11/18 22:34 Dose: 10 units Insulin Human Regular (Novolin R) 0 unit SC ACHS [facility] PRN Reason: Protocol Last Admin: 01/12/18 08:28 Dose: Not Given Lactulose (Enulose) 10 gm PO DAILY PRN Levetiracetam (Keppra) 500 mg PO BID [facility] Last Admin: 01/12/18 10:30 Dose: 500 mg Montelukast Sodium (Singulair) 10 mg PO [facility] Last Admin: 01/11/18 22:37 Dose: 10 mg Pantoprazole Sodium (Protonix Ec Tab) 20 mg PO DAILY [facility] Last Admin: 01/12/18 11:14 Dose: 20 mg Promethazine HCl/Dextromethorphan (Phenergan Dm Syrup) 5 ml PO Q6H PRN PRN Reason: Cough Last Admin: 01/12/18 12:36 Dose: 5 ml Ranolazine (Ranexa) 500 mg PO BID [facility] Last Admin: 01/12/18 11:14 Dose: 500 mg Rosuvastatin Calcium (Crestor) 10 mg PO [facility] Last Admin: 01/11/18 22:37 Dose: 10 mg Tramadol HCl (Ultram) 50 mg PO ONCE PRN Last Admin: 01/08/18 11:57 Dose: 50 mg Valproate Sodium (Depakene Cap) 250 mg PO QID [facility] Last Admin: 01/11/18 22:37 Dose: 250 mg Vitamin B Complex/Vit C/Folic Acid (Nephro-Courtney) 1 tab PO 0800 [facility] Last Admin: 01/12/18 11:15 Dose: 1 tab - Labs Labs: 01/11/18 06:08 01/11/18 06:08 PT 13.2 SECONDS (9.7-12.2) H 01/10/18 15:42 INR 1.2 01/10/18 15:42 APTT 35 SECONDS (21-34) H 01/10/18 15:42
[2018-01-12] MEDS ORDERED: HYDROmorphone 1 mg/ml ISec IVP ONE (17:00)
[2018-01-12] MEDS: (Lantus) Insulin Glargine, Recombinant SC SCH (22:28)
[2018-01-13] MEDS: Albuterol-Ipratrop 3 mg / 0.5 (3 ml) UD IH SCH ×4 (02:37→20:34)
[2018-01-13] MEDS: (Novolin R) Insulin Human Regular 100 units/ml vial SC SCH ×5 (08:12→21:53)
[2018-01-13] MEDS: Multivitamin Vitamin B Complex (Nephro-Vite) Tab PO SCH (08:14)
--- NOTE | 2018-01-13 09:34 | CON ---
DATE: CHIEF COMPLAINT AND REASON FOR CONSULTATION: The patient is referred by Dr. Sybil Li for evaluation and comanagement of depression and anxiety. The patient is very med seeking. HISTORY OF PRESENT ILLNESS: This is a case of 37-year-old male who is well known to me. I have been seeing him through the years with history of depression, anxiety as well as history of drug-induced delirium from taking too much pain medication. The patient was admitted here complaining of cough and shortness of breath, diagnosed with pneumonia. The patient is a chronic dialysis patient. He is also bilateral amputee, history of multiple medical problems, diabetes, CAD, CHF, COPD, DVT, diabetes. The patient when seen today is very med seeking. He was vomiting. Asking for pain medications. Staff has been holding his pain medications. His blood pressure seems to be very low. The patient's blood pressure earlier was 73/49 and now it is 96/62. He said his whole body hurts. The patient also used to take Zoloft and Restoril in the past, but I did tell him that we will hold it because of his low blood pressure. Today, he is restless and wants pain meds. PAST PSYCHIATRIC HISTORY: History of delirium. The patient has history of drug-induced delirium, he was seeing yellow tigers when taking too much narcotics, history of depression, anxiety, and mood disorder secondary to medical problems. LIST OF ALLERGIES: THE PATIENT IS ALLERGIC TO PERCOCET, ATENOLOL, MORPHINE. MEDICAL HISTORY: The patient has multiple medical problems, CHF. The patient is a bilateral amputee, end-stage renal disease, on dialysis, gastritis, hypertension, history of CAD, PAD, history of hyperkalemia, history of peripheral vascular disease, legal blindness, the patient has retinopathy of both eyes, history of, as stated, DVT, anemia. PSYCHOSOCIAL HISTORY: The patient lives with his family. The patient is disabled. His father is taking care of him after his mother . PHYSICAL EXAMINATION VITAL SIGNS: Temperature is 97.7, pulse rate 66, blood pressure seems to be low 96/62, oxygen sat is 96%, respirations 20. REVIEW OF SYSTEMS: GENERAL: The patient is seen in his room, very anxious, somatic. The patient is legally blind, was vomiting, wants more pain medications. SKIN: No pruritus. HEENT: Legally blind. No headache. NECK: Supple. RESPIRATORY: No dyspnea. CARDIOVASCULAR: No chest pain. GASTROINTESTINAL: The patient was vomiting. EXTREMITIES: The patient is a bilateral amputee. He has chronic pain in his lower extremities secondary to neuropathy. MUSCULOSKELETAL: Feels weak. NEUROLOGIC: Alert and oriented x3. GENITOURINARY: No dysuria. MEDICATIONS: List of current medications that the patient is taking includes ceftriaxone. The patient is on Dilaudid 1 mg IV every 6 hours p.r.n., Depakote 250 mg 4 times a day, Keppra, Ranexa, Protonix, Singulair, azithromycin. The patient is given Zoloft [address] Li, which was stopped. The patient was also given tramadol, this can cause some drug-drug interaction. MENTAL STATUS EXAMINATION: A well-developed male who looks stated age, he is an amputee. Mood is anxious, somatic. Med seeking. Speech is spontaneous. Affect is reactive. The patient is legally blind. Thought process coherent. Thought content, very med seeking. No paranoia. No visual hallucination. No suicidal or homicidal ideation. Attention and memory seemed to be limited. Insight and judgement limited. Impulse control is fair at this time. IMPRESSION: History of delirium, drug-induced, as well as history of depression,as well as mood disorder secondary to medical problems. PLAN AND RECOMMENDATIONS: Patient is seen, meds reviewed. The patient's blood pressure is low and has been asking for his pain medications. We will discontinue the Zoloft for now, Zoloft can reinforce the action of his pain medication and can cause his blood pressure to go down. The patient is given tramadol, we should avoid combining Zoloft with tramadol to prevent having serotonin syndrome. For now, we will hold the sertraline until the patient's blood pressure is more stable. We will also hold the pain meds until the blood pressure seems to be more stable. Dale Joseph MD [facility]
[2018-01-13] MEDS ORDERED: Ergocalciferol 50,000 Intl Units Cap PO SCH (10:00)
[2018-01-13] MEDS: Ranolazine 500 mg Extended Release Tablets PO SCH ×2 (12:10→18:45)
[2018-01-13] MEDS: Pantoprazole 20 mg EC Tab PO SCH (12:10)
[2018-01-13] MEDS: cefTRIAXone IV 1 gm in Dextros 50 ML IVPB SCH (12:12)
[2018-01-13] MEDS: Azithromycin 500 MG in Sodium Chloride 0.9% 250 ML IVPB SCH (12:13)
--- NOTE | 2018-01-13 12:34 | CP.PCM.PN ---
Subjective - Date & Time of Evaluation Date of Evaluation: 01/13/18 Time of Evaluation: 12:32 - Subjective Subjective: . Objective - Vital Signs/Intake and Output Vital Signs (last 24 hours): Temp Pulse Resp BP Pulse Ox 97.7 F 72 20 178/78 H 98 01/13/18 07:56 01/13/18 07:56 01/13/18 07:56 01/13/18 07:56 01/13/18 07:56 Intake and Output: 01/13/18 01/13/18 06:59 18:59 Intake Total 150 100 Balance 150 100 - Medications Medications: Current Medications Acetaminophen (Tylenol 325mg Tab) 650 mg PO Q6 PRN PRN Reason: Fever >100.4 F Albuterol/Ipratropium (Duoneb 3 Mg/0.5 Mg (3 Ml) Ud) 3 ml IH RQ6 [facility] Last Admin: 01/13/18 07:40 Dose: 3 ml Amiodarone HCl (Cordarone) 200 mg PO DAILY [facility] Last Admin: 01/13/18 12:10 Dose: 200 mg Aspirin (Aspirin Chewable) 81 mg PO DAILY [facility] Last Admin: 01/13/18 12:10 Dose: 81 mg Calcium Carbonate (Oscal) 500 mg PO BID [facility] Last Admin: 01/13/18 12:11 Dose: 500 mg Docusate Sodium (Colace) 100 mg PO PRN PRN PRN Reason: Constipation Epoetin Tom (Procrit) 4,000 unit IV TTS [facility] Last Admin: 01/11/18 12:18 Dose: 4,000 unit Ergocalciferol (Drisdol 50,000 Intl Units Cap) 1 cap PO Q7D [facility] Last Admin: 01/13/18 12:11 Dose: 1 cap Heparin Sodium (Porcine) (Heparin) 5,000 units SC Q12 [facility] Last Admin: 01/13/18 12:11 Dose: 5,000 units Hydromorphone HCl (Dilaudid) 1 mg IVP Q6H PRN PRN Reason: Pain, moderate (4-7) Last Admin: 01/10/18 02:32 Dose: 1 mg Azithromycin 500 mg/ Sodium (Chloride) 250 mls @ 250 mls/hr IVPB DAILY [facility] PRN Reason: Protocol Last Admin: 01/13/18 12:13 Dose: 250 mls/hr Ceftriaxone Sodium (Rocephin Iv 1 Gm Duplex) 50 mls @ 50 mls/30 min IVPB DAILY [facility] PRN Reason: Protocol Last Admin: 01/13/18 12:12 Dose: 50 mls/30 min Insulin Glargine (Lantus) 10 unit SC [facility] Last Admin: 01/12/18 22:28 Dose: 10 units Insulin Human Regular (Novolin R) 0 unit SC ACHS [facility] PRN Reason: Protocol Last Admin: 01/13/18 12:07 Dose: Not Given Lactulose (Enulose) 10 gm PO DAILY PRN Levetiracetam (Keppra) 500 mg PO BID [facility] Last Admin: 01/13/18 12:11 Dose: 500 mg Montelukast Sodium (Singulair) 10 mg PO [facility] Last Admin: 01/12/18 22:22 Dose: 10 mg Pantoprazole Sodium (Protonix Ec Tab) 20 mg PO DAILY [facility] Last Admin: 01/13/18 12:10 Dose: 20 mg Promethazine HCl/Dextromethorphan (Phenergan Dm Syrup) 5 ml PO Q6H PRN PRN Reason: Cough Last Admin: 01/12/18 12:36 Dose: 5 ml Ranolazine (Ranexa) 500 mg PO BID [facility] Last Admin: 01/13/18 12:10 Dose: 500 mg Rosuvastatin Calcium (Crestor) 10 mg PO [facility] Last Admin: 01/12/18 22:22 Dose: 10 mg Tramadol HCl (Ultram) 50 mg PO ONCE PRN Last Admin: 01/08/18 11:57 Dose: 50 mg Tramadol HCl (Ultram) 50 mg PO BID PRN PRN Reason: Pain, moderate (4-7) Valproate Sodium (Depakene Cap) 250 mg PO QID [facility] Last Admin: 01/13/18 12:09 Dose: 250 mg Vitamin B Complex/Vit C/Folic Acid (Nephro-Courtney) 1 tab PO 0800 [facility] Last Admin: 01/13/18 08:14 Dose: 1 tab - Labs Labs: 01/11/18 06:08 01/11/18 06:08 PT 13.2 SECONDS (9.7-12.2) H 01/10/18 15:42 INR 1.2 01/10/18 15:42 APTT 35 SECONDS (21-34) H 01/10/18 15:42 - Constitutional Appears: Chronically Ill - Head Exam Head Exam: ATRAUMATIC, NORMOCEPHALIC - Eye Exam Eye Exam: absent: Normal appearance - ENT Exam ENT Exam: Mucous Membranes Moist, Normal Oropharynx - Respiratory Exam Respiratory Exam: Rhonchi. absent: Rales - Cardiovascular Exam Cardiovascular Exam: REGULAR RHYTHM, +S1, +S2, Murmur - Extremities Exam Additional comments: b/l BKA Assessment and Plan - Assessment and Plan (Free Text) Assessment: 37 year old with severe sepsis due to health care associated PNA, ABX, bronchodilators, pulmonary toilet Atrial flutter failed CVA prophylaxis due to GI bleeding, now in NSR with amiodarone HTN is chronic not treated during active infection DM brittle poorly controlled ESRD on HD ASHD multiple amputations; s/p CABG with failed grafts: Not a candidate for further revascularization due to diffuse small vessel CAD in remaining [place] vessels. 2D echo images viewed by myself on this admission: EF 45-50%, elevated left atrial pressure.
--- NOTE | 2018-01-13 12:40 | CP.PCM.PN ---
Subjective - Date & Time of Evaluation Date of Evaluation: 01/13/18 Time of Evaluation: 12:39 - Subjective Subjective: Nephrology Consultation Note: Assessment:stable Shock ? septic: improved Fluid overload/pulmonary congestion, Pneumonia chronic chest pain, A flutter Diabetic chronic Kidney Disease (E11.22) Hypertensive Chronic Kidney Disease (I12.0) End stage renal disease (N18.6) dependence on hemodialysis (Z99.2) (TTS) via AVF Anemia (D64.9), Hyperphosphatemia (E83.39), Secondary Hyperparathyroidism (E21.1 ), HTN (I12.0) CAD s/p CABG, diastolic CHF, parox A flutter/fib, intra-cardiac thrombus, hx of Heparin induced thrombocytopenia, hx of seizure, blindness Plan: extra HD today 2 hrs UF goal 2 Kgs plan for dialysis saturday as per TTS. Continue with Nephrovite 1 tab/day. last Hb 10.2 hence epogen with HD as ordered Continue with phos binders home dose BP control with meds as ordered. Glycemic control, Dialysis consistent diet Further work up/management as per primary team Dose meds/antibiotics for ESRD status. Avoid fleets enema/magnesium based laxatives. Thanks for allowing me to participate in care of your patient. Will follow patient with you. Please call if any Qs. d/w team Dr Eric Temple Office: [phone] reason for consult: ESRD HPI: Pt is a 37 y/o transgender with hx of ESRD on hemodialysis (TTS) via permacath, chronic anemia, hyperphosphatemia, secondary hyperparathyroidism, Diabetes Mellitus, hypertension, CAD s/p CABG, diastolic CHF, pA flutter/fib, intra-cardiac thrombus, Heparin induced thrombocytopenia in past presented with complaints of SOB and cough. admitted for pnuemonia. has chronic chest pain, denies palpitation, c/o chronic shortness of breath ROS: All other negative except as in HPI. pt had DIRECTOR VIDEO 01/10/18 due to low BP. he was lethargic, transferred to ICU now better improved SOB. has cough Physical Examination: General Appearance: in no acute respiratory distress, co-operative . bnetter appearing Vitals reviewed and noted as below Head; Atraumatic, normocephalic ENT: no ulcers no thrush. Tongue is midline. Oropharynx: no rash or ulcers. EYES: Pt is blind both eyes Neck; supple no lymphadenopathy, no thyromegaly or bruit Lungs: Normal respiratory rate/effort. Breath sounds bilateral equal with b/l crackles/rale Heart: Normal rate. s1s2 normal. No rub or gallop. Extremities: no edema. No varicose veins. has b/l BKA. cool to touch Neurological: Patient is awake follow commands Skin: Warm and dry. Normal turgor. No rash. Palpitation: Normal elasticity for age Abdomen: Abdomen is soft. Bowel sounds +. There is no abdominal tenderness, no guarding/rigidity or organomegaly Psych: limited insight and has normal affect/mood MSK: no joint tenderness or swelling. Digits and nails normal, no deformity : kidney or bladder not palpable Access: permacath Labs/imaging reviewed. Past medical history, past surgical history, family history, social history, allergy reviewed and noted as below Family Hx: no hx of CKD. Non contributory Objective - Vital Signs/Intake and Output Vital Signs (last 24 hours): Temp Pulse Resp BP Pulse Ox 97.7 F 72 20 178/78 H 98 01/13/18 07:56 01/13/18 07:56 01/13/18 07:56 01/13/18 07:56 01/13/18 07:56 Intake and Output: 01/13/18 01/13/18 06:59 18:59 Intake Total 150 100 Balance 150 100 - Medications Medications: Current Medications Acetaminophen (Tylenol 325mg Tab) 650 mg PO Q6 PRN PRN Reason: Fever >100.4 F Albuterol/Ipratropium (Duoneb 3 Mg/0.5 Mg (3 Ml) Ud) 3 ml IH RQ6 [facility] Last Admin: 01/13/18 07:40 Dose: 3 ml Amiodarone HCl (Cordarone) 200 mg PO DAILY [facility] Last Admin: 01/13/18 12:10 Dose: 200 mg Aspirin (Aspirin Chewable) 81 mg PO DAILY [facility] Last Admin: 01/13/18 12:10 Dose: 81 mg Calcium Carbonate (Oscal) 500 mg PO BID [facility] Last Admin: 01/13/18 12:11 Dose: 500 mg Docusate Sodium (Colace) 100 mg PO PRN PRN PRN Reason: Constipation Epoetin Tom (Procrit) 4,000 unit IV TTS [facility] Last Admin: 01/11/18 12:18 Dose: 4,000 unit Ergocalciferol (Drisdol 50,000 Intl Units Cap) 1 cap PO Q7D [facility] Last Admin: 01/13/18 12:11 Dose: 1 cap Heparin Sodium (Porcine) (Heparin) 5,000 units SC Q12 [facility] Last Admin: 01/13/18 12:11 Dose: 5,000 units Hydromorphone HCl (Dilaudid) 1 mg IVP Q6H PRN PRN Reason: Pain, moderate (4-7) Last Admin: 01/10/18 02:32 Dose: 1 mg Azithromycin 500 mg/ Sodium (Chloride) 250 mls @ 250 mls/hr IVPB DAILY [facility] PRN Reason: Protocol Last Admin: 01/13/18 12:13 Dose: 250 mls/hr Ceftriaxone Sodium (Rocephin Iv 1 Gm Duplex) 50 mls @ 50 mls/30 min IVPB DAILY [facility] PRN Reason: Protocol Last Admin: 01/13/18 12:12 Dose: 50 mls/30 min Insulin Glargine (Lantus) 10 unit SC HS [facility] Last Admin: 01/12/18 22:28 Dose: 10 units Insulin Human Regular (Novolin R) 0 unit SC ACHS [facility] PRN Reason: Protocol Last Admin: 01/13/18 12:07 Dose: Not Given Lactulose (Enulose) 10 gm PO DAILY PRN Levetiracetam (Keppra) 500 mg PO BID [facility] Last Admin: 01/13/18 12:11 Dose: 500 mg Montelukast Sodium (Singulair) 10 mg PO HS [facility] Last Admin: 01/12/18 22:22 Dose: 10 mg Pantoprazole Sodium (Protonix Ec Tab) 20 mg PO DAILY [facility] Last Admin: 01/13/18 12:10 Dose: 20 mg Promethazine HCl/Dextromethorphan (Phenergan Dm Syrup) 5 ml PO Q6H PRN PRN Reason: Cough Last Admin: 01/12/18 12:36 Dose: 5 ml Ranolazine (Ranexa) 500 mg PO BID [facility] Last Admin: 01/13/18 12:10 Dose: 500 mg Rosuvastatin Calcium (Crestor) 10 mg PO HS [facility] Last Admin: 01/12/18 22:22 Dose: 10 mg Tramadol HCl (Ultram) 50 mg PO ONCE PRN Last Admin: 01/08/18 11:57 Dose: 50 mg Tramadol HCl (Ultram) 50 mg PO BID PRN PRN Reason: Pain, moderate (4-7) Valproate Sodium (Depakene Cap) 250 mg PO QID [facility] Last Admin: 01/13/18 12:09 Dose: 250 mg Vitamin B Complex/Vit C/Folic Acid (Nephro-Courtney) 1 tab PO 0800 [facility] Last Admin: 01/13/18 08:14 Dose: 1 tab - Labs Labs: 01/11/18 06:08 01/11/18 06:08 PT 13.2 SECONDS (9.7-12.2) H 01/10/18 15:42 INR 1.2 01/10/18 15:42 APTT 35 SECONDS (21-34) H 01/10/18 15:42
--- NOTE | 2018-01-13 17:54 | CP.PCM.PN ---
Subjective - Date & Time of Evaluation Date of Evaluation: 01/13/18 Time of Evaluation: 17:51 - Subjective Subjective: pt having dialysis now sleepy not coughing bp low 90/44 Objective - Vital Signs/Intake and Output Vital Signs (last 24 hours): Temp Pulse Resp BP Pulse Ox 97.5 F L 65 18 105/60 100 01/13/18 15:50 01/13/18 17:20 01/13/18 17:20 01/13/18 17:20 01/13/18 17:20 Intake and Output: 01/13/18 01/13/18 06:59 18:59 Intake Total 150 100 Balance 150 100 - Medications Medications: Current Medications Acetaminophen (Tylenol 325mg Tab) 650 mg PO Q6 PRN PRN Reason: Fever >100.4 F Albuterol/Ipratropium (Duoneb 3 Mg/0.5 Mg (3 Ml) Ud) 3 ml IH RQ6 [facility] Last Admin: 01/13/18 14:09 Dose: Not Given Amiodarone HCl (Cordarone) 200 mg PO DAILY [facility] Last Admin: 01/13/18 12:10 Dose: 200 mg Aspirin (Aspirin Chewable) 81 mg PO DAILY [facility] Last Admin: 01/13/18 12:10 Dose: 81 mg Calcium Carbonate (Oscal) 500 mg PO BID [facility] Last Admin: 01/13/18 12:11 Dose: 500 mg Docusate Sodium (Colace) 100 mg PO PRN PRN PRN Reason: Constipation Epoetin Tom (Procrit) 4,000 unit IV TTS [facility] Last Admin: 01/11/18 12:18 Dose: 4,000 unit Ergocalciferol (Drisdol 50,000 Intl Units Cap) 1 cap PO Q7D [facility] Last Admin: 01/13/18 12:11 Dose: 1 cap Heparin Sodium (Porcine) (Heparin) 5,000 units SC Q12 [facility] Last Admin: 01/13/18 12:11 Dose: 5,000 units Hydromorphone HCl (Dilaudid) 1 mg IVP Q6H PRN PRN Reason: Pain, moderate (4-7) Last Admin: 01/10/18 02:32 Dose: 1 mg Azithromycin 500 mg/ Sodium (Chloride) 250 mls @ 250 mls/hr IVPB DAILY [facility] PRN Reason: Protocol Last Admin: 01/13/18 12:13 Dose: 250 mls/hr Ceftriaxone Sodium (Rocephin Iv 1 Gm Duplex) 50 mls @ 50 mls/30 min IVPB DAILY [facility] PRN Reason: Protocol Last Admin: 01/13/18 12:12 Dose: 50 mls/30 min Insulin Glargine (Lantus) 10 unit SC HS [facility] Last Admin: 01/12/18 22:28 Dose: 10 units Insulin Human Regular (Novolin R) 0 unit SC [facility] PRN Reason: Protocol Last Admin: 01/13/18 17:46 Dose: Not Given Lactulose (Enulose) 10 gm PO DAILY PRN Levetiracetam (Keppra) 500 mg PO BID [facility] Last Admin: 01/13/18 12:11 Dose: 500 mg Montelukast Sodium (Singulair) 10 mg PO HS [facility] Last Admin: 01/12/18 22:22 Dose: 10 mg Pantoprazole Sodium (Protonix Ec Tab) 20 mg PO DAILY [facility] Last Admin: 01/13/18 12:10 Dose: 20 mg Promethazine HCl/Dextromethorphan (Phenergan Dm Syrup) 5 ml PO Q6H PRN PRN Reason: Cough Last Admin: 01/12/18 12:36 Dose: 5 ml Ranolazine (Ranexa) 500 mg PO BID [facility] Last Admin: 01/13/18 12:10 Dose: 500 mg Rosuvastatin Calcium (Crestor) 10 mg PO HS [facility] Last Admin: 01/12/18 22:22 Dose: 10 mg Tramadol HCl (Ultram) 50 mg PO ONCE PR[facility] Last Admin: 01/08/18 11:57 Dose: 50 mg Tramadol HCl (Ultram) 50 mg PO BID PRN PRN Reason: Pain, moderate (4-7) Valproate Sodium (Depakene Cap) 250 mg PO QID [facility] Last Admin: 01/13/18 14:52 Dose: 250 mg Vitamin B Complex/Vit C/Folic Acid (Nephro-Courtney) 1 tab PO 0800 [facility] Last Admin: 01/13/18 08:14 Dose: 1 tab - Labs Labs: 01/11/18 06:08 01/11/18 06:08 PT 13.2 SECONDS (9.7-12.2) H 01/10/18 15:42 INR 1.2 01/10/18 15:42 APTT 35 SECONDS (21-34) H 01/10/18 15:42 - Constitutional Appears: Non-toxic - Head Exam Head Exam: ATRAUMATIC - Eye Exam Eye Exam: Conjunctival injection - ENT Exam ENT Exam: Mucous Membranes Moist - Neck Exam Neck Exam: Full ROM - Respiratory Exam Respiratory Exam: Decreased Breath Sounds - Cardiovascular Exam Cardiovascular Exam: REGULAR RHYTHM - GI/Abdominal Exam GI & Abdominal Exam: Normal Bowel Sounds - Back Exam Back Exam: CVA tenderness (L) - Psychiatric Exam Psychiatric exam: Depressed - Skin Skin Exam: Pallor Assessment and Plan - Assessment and Plan (Free Text) Assessment: chfesrf dm hyotension cont as per orders Plan: cont as per orders
[2018-01-13] MEDS: EPOETIN ALFA 4,000 UNIT/ML ML Dialysis IV SCH (17:56)
--- NOTE | 2018-01-13 19:38 | PN ---
DATE: 01/13/2018 SUBJECTIVE: The patient is seen. The patient was transferred from ICU to the regular floor. The patient's blood pressure is much better now but Dilaudid has been on hold as blood pressure was running low. The patient is currently on Ultram 50 mg b.i.d. and off Zoloft to avoid serotonin syndrome side effect. Ultram cannot be combined with SSRI because it will cause serotonin syndrome side effect. PHYSICAL EXAMINATION: VITAL SIGNS: Temperature is 97.7, pulse rate 72, blood pressure 178/78, respirations 20, oxygen saturation is 98%. REVIEW OF SYSTEMS: GENERAL: The patient is drowsy when seen, but not complaining of pain in his room. SKIN: No diaphoresis. HEENT: Legally blind. No headache. NECK: Supple. RESPIRATORY: No dyspnea. CARDIOVASCULAR: No chest pain. GASTROINTESTINAL: No nausea. No vomiting. EXTREMITIES: The patient is bilateral amputee. He has chronic neuropathic pain. NEUROLOGICAL: Drowsy but arousable. MUSCULOSKELETAL: Feels weak. GENITOURINARY: No problem. MENTAL STATUS EXAMINATION: Well-developed male, who looks stated age, seen in his room, drowsy but arousable. Oriented x2. Mood is dysphoric. Affect is restricted. Speech is slow. Thought process, confused at times. Thought content, less preoccupied of his pain meds today. No paranoia. No hallucination. No suicidal or homicidal ideation. Attention and memory seemed to be limited. Insight and judgement limited. Impulse control is fair at this time. IMPRESSION: History of recurrent depression, anxiety, delirium drug induced, as well as mood disorder secondary to medical problem; history of chronic pain syndrome, end-stage renal disease on dialysis, history of hypertension, coronary artery disease, bilateral amputee. PLAN AND RECOMMENDATION: The patient is seen, meds reviewed. Continue present management. We will keep the patient off Dilaudid for now as well as keep the patient off Zoloft as the patient is taking Ultram to avoid serotonin syndrome side effect. Continue dialysis as ordered. Dale Joseph MD
[2018-01-13] MEDS: (Lantus) Insulin Glargine, Recombinant SC SCH (22:01)
[2018-01-14] MEDS: Albuterol-Ipratrop 3 mg / 0.5 (3 ml) UD IH SCH ×2 (02:10→07:28)
[2018-01-14] MEDS: (Novolin R) Insulin Human Regular 100 units/ml vial SC SCH ×4 (07:39→22:00)
[2018-01-14] MEDS: Multivitamin Vitamin B Complex (Nephro-Vite) Tab PO SCH (08:58)
--- NOTE | 2018-01-14 09:02 | CP.PCM.PN ---
Subjective - Date & Time of Evaluation Date of Evaluation: 01/14/18 Time of Evaluation: 09:01 - Subjective Subjective: Events reviewed Objective - Vital Signs/Intake and Output Vital Signs (last 24 hours): Temp Pulse Resp BP Pulse Ox 98.1 F 66 20 133/80 96 01/14/18 07:00 01/14/18 07:00 01/14/18 07:00 01/14/18 07:00 01/13/18 23:35 - Medications Medications: Current Medications Acetaminophen (Tylenol 325mg Tab) 650 mg PO Q6 PRN PRN Reason: Fever >100.4 F Albuterol/Ipratropium (Duoneb 3 Mg/0.5 Mg (3 Ml) Ud) 3 ml IH RQ6 [facility] Last Admin: 01/14/18 07:28 Dose: 3 ml Amiodarone HCl (Cordarone) 200 mg PO DAILY [facility] Last Admin: 01/13/18 12:10 Dose: 200 mg Aspirin (Aspirin Chewable) 81 mg PO DAILY [facility] Last Admin: 01/13/18 12:10 Dose: 81 mg Calcium Carbonate (Oscal) 500 mg PO BID [facility] Last Admin: 01/13/18 18:42 Dose: 500 mg Docusate Sodium (Colace) 100 mg PO PRN PRN PRN Reason: Constipation Epoetin Tom (Procrit) 4,000 unit IV TTS [facility] Last Admin: 01/11/18 12:18 Dose: 4,000 unit Ergocalciferol (Drisdol 50,000 Intl Units Cap) 1 cap PO Q7D [facility] Last Admin: 01/13/18 12:11 Dose: 1 cap Heparin Sodium (Porcine) (Heparin) 5,000 units SC Q12 [facility] Last Admin: 01/13/18 22:01 Dose: 5,000 units Hydromorphone HCl (Dilaudid) 1 mg IVP Q6H PRN PRN Reason: Pain, moderate (4-7) Last Admin: 01/10/18 02:32 Dose: 1 mg Azithromycin 500 mg/ Sodium (Chloride) 250 mls @ 250 mls/hr IVPB DAILY [facility] PRN Reason: Protocol Last Admin: 01/13/18 12:13 Dose: 250 mls/hr Ceftriaxone Sodium (Rocephin Iv 1 Gm Duplex) 50 mls @ 50 mls/30 min IVPB DAILY [facility] PRN Reason: Protocol Last Admin: 01/13/18 12:12 Dose: 50 mls/30 min Insulin Glargine (Lantus) 10 unit SC HS [facility] Last Admin: 01/13/18 22:01 Dose: 10 units Insulin Human Regular (Novolin R) [address] [facility] PRN Reason: Protocol Last Admin: 01/14/18 07:39 Dose: Not Given Lactulose (Enulose) 10 gm PO DAILY PRN Levetiracetam (Keppra) 500 mg PO BID [facility] Last Admin: 01/13/18 18:43 Dose: 500 mg Montelukast Sodium (Singulair) 10 mg PO [facility] Last Admin: 01/13/18 22:00 Dose: 10 mg Pantoprazole Sodium (Protonix Ec Tab) 20 mg PO DAILY [facility] Last Admin: 01/13/18 12:10 Dose: 20 mg Promethazine HCl/Dextromethorphan (Phenergan Dm Syrup) 5 ml PO Q6H PRN PRN Reason: Cough Last Admin: 01/12/18 12:36 Dose: 5 ml Ranolazine (Ranexa) 500 mg PO BID [facility] Last Admin: 01/13/18 18:45 Dose: 500 mg Rosuvastatin Calcium (Crestor) 10 mg PO [facility] Last Admin: 01/13/18 22:01 Dose: 10 mg Tramadol HCl (Ultram) 50 mg PO ONCE PRN Last Admin: 01/08/18 11:57 Dose: 50 mg Tramadol HCl (Ultram) 50 mg PO BID PRN PRN Reason: Pain, moderate (4-7) Last Admin: 01/13/18 22:00 Dose: 50 mg Valproate Sodium (Depakene Cap) 250 mg PO QID [facility] Last Admin: 01/13/18 22:00 Dose: 250 mg Vitamin B Complex/Vit C/Folic Acid (Nephro-Courtney) 1 tab PO 0800 [facility] Last Admin: 01/14/18 08:58 Dose: Not Given - Labs Labs: 01/11/18 06:08 01/11/18 06:08 PT 13.2 SECONDS (9.7-12.2) H 01/10/18 15:42 INR 1.2 01/10/18 15:42 APTT 35 SECONDS (21-34) H 05/11/18 15:42 - Constitutional Appears: Well, Non-toxic - Respiratory Exam Respiratory Exam: Wheezes, NORMAL BREATHING PATTERN - Cardiovascular Exam Cardiovascular Exam: Irregular Rhythm, +S1, +S2, +S4, Murmur. absent: JVD Additional comments: +Permcath - GI/Abdominal Exam GI & Abdominal Exam: Normal Bowel Sounds. absent: Organomegaly Assessment and Plan - Assessment and Plan (Free Text) Assessment: 37 year old with severe sepsis due to health care associated PNA, ABX, bronchodilators, pulmonary toilet Atrial flutter failed CVA prophylaxis due to GI bleeding, now in NSR with amiodarone HTN is chronic not treated during active infection DM brittle poorly controlled ESRD on HD ASHD multiple amputations; s/p CABG with failed grafts: Not a candidate for further revascularization due to diffuse small vessel CAD in remaining [place] vessels. 2D echo images viewed by myself on this admission: EF 45-50%, elevated left atrial pressure.
[2018-01-14 09:46] LABS: BASO % 0.6 % (0.0-2.0); EOS # 0.7 K/uL (0.0-0.7); EOS % 9.3 % (0.0-4.0); HEMOGLOBIN 11.5 g/dL (12.0-18.0); LYMPH # 2.2 K/uL (1.0-4.3); LYMPH % 29.8 % (20.0-40.0); MEAN CORPUSCULAR HEMOGLOBIN 28.5 pg (27.0-31.0); MEAN CORPUSCULAR HGB CONC 32.8 g/dL (33.0-37.0); MEAN PLATELET VOLUME 9.1 fL (7.2-11.7); MONO # 0.4 K/uL (0.0-0.8); MONO % 5.9 % (0.0-10.0); NEUT # 4.1 K/uL (1.8-7.0); NEUT % 54.4 % (50.0-75.0); RBC 4.03 Mil/uL (4.40-5.90); RED CELL DISTRIBUTION WIDTH 17.3 % (11.5-14.5); WHITE BLOOD COUNT 7.5 K/uL (4.8-10.8)
[2018-01-14 10:11] LABS: ALB/GLOB RATIO 0.9 (1.0-2.1); ALBUMIN 3.5 g/dL (3.5-5.0); CALCIUM 8.7 mg/dl (8.6-10.4)
[2018-01-14] MEDS: Pantoprazole 20 mg EC Tab PO SCH (10:28)
[2018-01-14] MEDS: Ranolazine 500 mg Extended Release Tablets PO SCH ×2 (10:28→18:17)
[2018-01-14] MEDS ORDERED: Albumin Human 25% (12.5 gm/50 ml) IV ONE (10:59)
--- NOTE | 2018-01-14 11:36 | CP.PCM.PN ---
Subjective - Date & Time of Evaluation Date of Evaluation: 01/14/18 Time of Evaluation: 11:33 - Subjective Subjective: having dialysis now awake still has cough Objective - Vital Signs/Intake and Output Vital Signs (last 24 hours): Temp Pulse Resp BP Pulse Ox 97.9 F 67 22 131/70 96 01/14/18 09:30 01/14/18 09:30 01/14/18 09:30 01/14/18 09:30 01/13/18 23:35 - Medications Medications: Current Medications Acetaminophen (Tylenol 325mg Tab) 650 mg PO Q6 PRN PRN Reason: Fever >100.4 F Albuterol/Ipratropium (Duoneb 3 Mg/0.5 Mg (3 Ml) Ud) 3 ml IH RQ6 [facility] Last Admin: 01/14/18 07:28 Dose: 3 ml Amiodarone HCl (Cordarone) 200 mg PO DAILY [facility] Last Admin: 01/14/18 10:27 Dose: Not Given Aspirin (Aspirin Chewable) 81 mg PO DAILY [facility] Last Admin: 01/14/18 10:27 Dose: Not Given Calcium Carbonate (Oscal) 500 mg PO BID [facility] Last Admin: 01/14/18 10:28 Dose: Not Given Docusate Sodium (Colace) 100 mg PO PRN PRN PRN Reason: Constipation Ergocalciferol (Drisdol 50,000 Intl Units Cap) 1 cap PO Q7D [facility] Last Admin: 01/13/18 12:11 Dose: 1 cap Heparin Sodium (Porcine) (Heparin) 5,000 units SC Q12 [facility] Last Admin: 01/14/18 10:27 Dose: Not Given Hydromorphone HCl (Dilaudid) 1 mg IVP Q6H PRN PRN Reason: Pain, moderate (4-7) Last Admin: 01/10/18 02:32 Dose: 1 mg Azithromycin 500 mg/ Sodium (Chloride) 250 mls @ 250 mls/hr IVPB DAILY [facility] PRN Reason: Protocol Last Admin: 01/13/18 12:13 Dose: 250 mls/hr Ceftriaxone Sodium (Rocephin Iv 1 Gm Duplex) 50 mls @ 50 mls/30 min IVPB DAILY [facility] PRN Reason: Protocol Last Admin: 01/13/18 12:12 Dose: 50 mls/30 min Insulin Glargine (Lantus) 10 unit SC HS [facility] Last Admin: 01/13/18 22:01 Dose: 10 units Insulin Human Regular (Novolin R) 0 unit SC [facility] PRN Reason: Protocol Last Admin: 01/14/18 07:39 Dose: Not Given Lactulose (Enulose) 10 gm PO DAILY PRN Levetiracetam (Keppra) 500 mg PO BID [facility] Last Admin: 01/14/18 10:28 Dose: Not Given Montelukast Sodium (Singulair) 10 mg PO [facility] Last Admin: 01/13/18 22:00 Dose: 10 mg Pantoprazole Sodium (Protonix Ec Tab) 20 mg PO DAILY [facility] Last Admin: 01/14/18 10:28 Dose: Not Given Promethazine HCl/Dextromethorphan (Phenergan Dm Syrup) 5 ml PO Q6H PRN PRN Reason: Cough Last Admin: 01/12/18 12:36 Dose: 5 ml Ranolazine (Ranexa) 500 mg PO BID [facility] Last Admin: 01/14/18 10:28 Dose: Not Given Rosuvastatin Calcium (Crestor) 10 mg PO [facility] Last Admin: 01/13/18 22:01 Dose: 10 mg Tramadol HCl (Ultram) 50 mg PO ONCE PRN Last Admin: 01/08/18 11:57 Dose: 50 mg Tramadol HCl (Ultram) 50 mg PO BID PRN PRN Reason: Pain, moderate (4-7) Last Admin: 01/13/18 22:00 Dose: 50 mg Valproate Sodium (Depakene Cap) 250 mg PO QID [facility] Last Admin: 01/14/18 10:27 Dose: Not Given Vitamin B Complex/Vit C/Folic Acid (Nephro-Courtney) 1 tab PO 0800 [facility] Last Admin: 01/14/18 08:58 Dose: Not Given - Labs Labs: 01/14/18 09:42 01/14/18 09:42 PT 13.2 SECONDS (9.7-12.2) H 01/10/18 15:42 INR 1.2 01/10/18 15:42 APTT 35 SECONDS (21-34) H 01/10/18 15:42 - Constitutional Appears: Non-toxic - Head Exam Head Exam: ATRAUMATIC - Eye Exam Eye Exam: Conjunctival injection - ENT Exam ENT Exam: Mucous Membranes Moist - Neck Exam Neck Exam: Full ROM - Respiratory Exam Respiratory Exam: Decreased Breath Sounds - Cardiovascular Exam Cardiovascular Exam: REGULAR RHYTHM - GI/Abdominal Exam GI & Abdominal Exam: Normal Bowel Sounds - Rectal Exam Rectal Exam: NORMAL INSPECTION - Back Exam Back Exam: CVA tenderness (L) - Psychiatric Exam Psychiatric exam: Normal Affect - Skin Skin Exam: Pallor Assessment and Plan - Assessment and Plan (Free Text) Assessment: chf hypotensive cough ESRF DM Plan: CONT SAME TREATMENT WILL NEED BP SUPPORT
--- NOTE | 2018-01-14 12:41 | CP.PCM.PN ---
Subjective - Date & Time of Evaluation Date of Evaluation: 01/14/18 Time of Evaluation: 12:39 - Subjective Subjective: Nephrology Consultation Note: Assessment:stable Shock ? septic: improved Fluid overload/pulmonary congestion, Pneumonia chronic chest pain, A flutter Diabetic chronic Kidney Disease (E11.22) Hypertensive Chronic Kidney Disease (I12.0) End stage renal disease (N18.6) dependence on hemodialysis (Z99.2) (TTS) via AVF Anemia (D64.9), Hyperphosphatemia (E83.39), Secondary Hyperparathyroidism (E21.1 ), HTN (I12.0) CAD s/p CABG, diastolic CHF, parox A flutter/fib, intra-cardiac thrombus, hx of Heparin induced thrombocytopenia, hx of seizure, blindness Plan: plan for dialysis today as per TTS. Continue with Nephrovite 1 tab/day. last Hb 11.5 hence d/c epogen Continue with phos binders home dose BP control with meds as ordered. Glycemic control, Dialysis consistent diet Further work up/management as per primary team Dose meds/antibiotics for ESRD status. Avoid fleets enema/magnesium based laxatives. Thanks for allowing me to participate in care of your patient. Will follow patient with you. Please call if any Qs. had d/w team Dr Eric Temple Office: [phone] reason for consult: ESRD HPI: Pt is a 37 y/o transgender with hx of ESRD on hemodialysis (TTS) via permacath, chronic anemia, hyperphosphatemia, secondary hyperparathyroidism, Diabetes Mellitus, hypertension, CAD s/p CABG, diastolic CHF, pA flutter/fib, intra-cardiac thrombus, Heparin induced thrombocytopenia in past presented with complaints of SOB and cough. admitted for pnuemonia. has chronic chest pain, denies palpitation, c/o chronic shortness of breath ROS: All other negative except as in HPI. pt had MOBILE TESTER 01/10/18 due to low BP. he was lethargic, transferred to ICU now better improved SOB. has cough Physical Examination: seen on HD General Appearance: in no acute respiratory distress, co-operative . better appearing Vitals reviewed and noted as below Head; Atraumatic, normocephalic ENT: no ulcers no thrush. Tongue is midline. Oropharynx: no rash or ulcers. EYES: Pt is blind both eyes Neck; supple no lymphadenopathy, no thyromegaly or bruit Lungs: Normal respiratory rate/effort. Breath sounds bilateral equal with improved crackle now few only Heart: Normal rate. s1s2 normal. No rub or gallop. Extremities: no edema. No varicose veins. has b/l BKA. cool to touch Neurological: Patient is awake follow commands no focal deficit Skin: Warm and dry. Normal turgor. No rash. Palpitation: Normal elasticity for age Abdomen: Abdomen is soft. Bowel sounds +. There is no abdominal tenderness, no guarding/rigidity or organomegaly Psych: limited insight and has normal affect/mood MSK: no joint tenderness or swelling. Digits and nails normal, no deformity : kidney or bladder not palpable Access: permacath Labs/imaging reviewed. Past medical history, past surgical history, family history, social history, allergy reviewed and noted as below Family Hx: no hx of CKD. Non contributory Objective - Vital Signs/Intake and Output Vital Signs (last 24 hours): Temp Pulse Resp BP Pulse Ox 97.9 F 67 20 96/56 L 100 01/14/18 09:30 01/14/18 09:30 01/14/18 09:30 01/14/18 10:15 01/14/18 09:30 - Medications Medications: Current Medications Acetaminophen (Tylenol 325mg Tab) 650 mg PO Q6 PRN PRN Reason: Fever >100.4 F Albuterol/Ipratropium (Duoneb 3 Mg/0.5 Mg (3 Ml) Ud) 3 ml IH RQ6 [facility] Last Admin: 01/14/18 07:28 Dose: 3 ml Amiodarone HCl (Cordarone) 200 mg PO DAILY [facility] Last Admin: 01/14/18 10:27 Dose: Not Given Aspirin (Aspirin Chewable) 81 mg PO DAILY [facility] Last Admin: 01/14/18 10:27 Dose: Not Given Calcium Carbonate (Oscal) 500 mg PO BID [facility] Last Admin: 01/14/18 10:28 Dose: Not Given Docusate Sodium (Colace) 100 mg PO PRN PRN PRN Reason: Constipation Ergocalciferol (Drisdol 50,000 Intl Units Cap) 1 cap PO Q7D [facility] Last Admin: 01/13/18 12:11 Dose: 1 cap Heparin Sodium (Porcine) (Heparin) 5,000 units SC Q12 [facility] Last Admin: 01/14/18 10:27 Dose: Not Given Hydromorphone HCl (Dilaudid) 1 mg IVP Q6H PRN PRN Reason: Pain, moderate (4-7) Last Admin: 01/10/18 02:32 Dose: 1 mg Azithromycin 500 mg/ Sodium (Chloride) 250 mls @ 250 mls/hr IVPB DAILY [facility] PRN Reason: Protocol Last Admin: 01/13/18 12:13 Dose: 250 mls/hr Ceftriaxone Sodium (Rocephin Iv 1 Gm Duplex) 50 mls @ 50 mls/30 min IVPB DAILY [facility] PRN Reason: Protocol Last Admin: 01/13/18 12:12 Dose: 50 mls/30 min Insulin Glargine (Lantus) 10 unit SC [facility] Last Admin: 01/13/18 22:01 Dose: 10 units Insulin Human Regular (Novolin R) 0 unit SC [facility] PRN Reason: Protocol Last Admin: 01/14/18 07:39 Dose: Not Given Lactulose (Enulose) 10 gm PO DAILY PRN Levetiracetam (Keppra) 500 mg PO BID [facility] Last Admin: 01/14/18 10:28 Dose: Not Given Montelukast Sodium (Singulair) 10 mg PO [facility] Last Admin: 01/13/18 22:00 Dose: 10 mg Pantoprazole Sodium (Protonix Ec Tab) 20 mg PO DAILY [facility] Last Admin: 01/14/18 10:28 Dose: Not Given Promethazine HCl/Dextromethorphan (Phenergan Dm Syrup) 5 ml PO Q6H PRN PRN Reason: Cough Last Admin: 01/12/18 12:36 Dose: 5 ml Ranolazine (Ranexa) 500 mg PO BID [facility] Last Admin: 01/14/18 10:28 Dose: Not Given Rosuvastatin Calcium (Crestor) 10 mg PO [facility] Last Admin: 01/13/18 22:01 Dose: 10 mg Tramadol HCl (Ultram) 50 mg PO ONCE PRN Last Admin: 01/08/18 11:57 Dose: 50 mg Tramadol HCl (Ultram) 50 mg PO BID PRN PRN Reason: Pain, moderate (4-7) Last Admin: 01/13/18 22:00 Dose: 50 mg Valproate Sodium (Depakene Cap) 250 mg PO QID [facility] Last Admin: 01/14/18 10:27 Dose: Not Given Vitamin B Complex/Vit C/Folic Acid (Nephro-Courtney) 1 tab PO 0800 [facility] Last Admin: 01/14/18 08:58 Dose: Not Given - Labs Labs: 01/14/18 09:42 01/14/18 09:42 PT 13.2 SECONDS (9.7-12.2) H 01/10/18 15:42 INR 1.2 01/10/18 15:42 APTT 35 SECONDS (21-34) H 01/10/18 15:42
[2018-01-14] MEDS: cefTRIAXone IV 1 gm in Dextros 50 ML IVPB SCH (14:22)
[2018-01-14] MEDS: Azithromycin 500 MG in Sodium Chloride 0.9% 250 ML IVPB SCH (15:02)
[2018-01-14] MEDS: (Lantus) Insulin Glargine, Recombinant SC SCH (21:22)
[2018-01-15] MEDS: Albuterol-Ipratrop 3 mg / 0.5 (3 ml) UD IH SCH ×2 (03:03→07:10)
[2018-01-15] MEDS: Multivitamin Vitamin B Complex (Nephro-Vite) Tab PO SCH (08:12)
[2018-01-15] MEDS: (Novolin R) Insulin Human Regular 100 units/ml vial SC SCH ×4 (08:13→21:50)
[2018-01-15] MEDS: Ranolazine 500 mg Extended Release Tablets PO SCH ×2 (09:12→17:47)
[2018-01-15] MEDS: Promethazine DM 6.25 mg-15 mg/5 ml Syrup PO PRN (09:14)
[2018-01-15] MEDS: Pantoprazole 20 mg EC Tab PO SCH (09:14)
[2018-01-15] MEDS: cefTRIAXone IV 1 gm in Dextros 50 ML IVPB SCH (10:16)
--- NOTE | 2018-01-15 10:26 | CP.PCM.PN ---
Subjective - Date & Time of Evaluation Date of Evaluation: 01/15/18 Time of Evaluation: 10:23 - Subjective Subjective: pt still coughing received alb last night bp up now Objective - Vital Signs/Intake and Output Vital Signs (last 24 hours): Temp Pulse Resp BP Pulse Ox 98.3 F 78 18 146/83 100 01/15/18 07:00 01/15/18 07:00 01/15/18 07:00 01/15/18 07:00 01/15/18 07:00 - Medications Medications: Current Medications Acetaminophen (Tylenol 325mg Tab) 650 mg PO Q6 PRN PRN Reason: Fever >100.4 F Albuterol/Ipratropium (Duoneb 3 Mg/0.5 Mg (3 Ml) Ud) 3 ml IH RQ6 [facility] Last Admin: 01/15/18 07:10 Dose: 3 ml Amiodarone HCl (Cordarone) 200 mg PO DAILY [facility] Last Admin: 01/15/18 09:13 Dose: 200 mg Aspirin (Aspirin Chewable) 81 mg PO DAILY [facility] Last Admin: 01/15/18 09:12 Dose: 81 mg Calcium Carbonate (Oscal) 500 mg PO BID [facility] Last Admin: 01/15/18 09:12 Dose: 500 mg Docusate Sodium (Colace) 100 mg PO PRN PRN PRN Reason: Constipation Ergocalciferol (Drisdol 50,000 Intl Units Cap) 1 cap PO Q7D [facility] Last Admin: 01/13/18 12:11 Dose: 1 cap Heparin Sodium (Porcine) (Heparin) 5,000 units SC Q12 [facility] Last Admin: 01/15/18 09:14 Dose: 5,000 units Hydromorphone HCl (Dilaudid) 1 mg IVP Q6H PRN PRN Reason: Pain, moderate (4-7) Last Admin: 01/10/18 02:32 Dose: 1 mg Azithromycin 500 mg/ Sodium (Chloride) 250 mls @ 250 mls/hr IVPB DAILY [facility] PRN Reason: Protocol Last Admin: 01/14/18 15:02 Dose: 250 mls/hr Ceftriaxone Sodium (Rocephin Iv 1 Gm Duplex) 50 mls @ 50 mls/30 min IVPB DAILY [facility] PRN Reason: Protocol Last Admin: 01/15/18 10:16 Dose: 50 mls/30 min Insulin Glargine (Lantus) 10 unit SC [facility] Last Admin: 01/14/18 21:22 Dose: 10 units Insulin Human Regular (Novolin R) 0 unit SC [facility] PRN Reason: Protocol Last Admin: 01/15/18 08:13 Dose: 1 unit Lactulose (Enulose) 10 gm PO DAILY PRN Last Admin: 01/15/18 09:13 Dose: 10 gm Levetiracetam (Keppra) 500 mg PO BID [facility] Last Admin: 01/15/18 09:13 Dose: 500 mg Montelukast Sodium (Singulair) 10 mg PO [facility] Last Admin: 01/14/18 21:21 Dose: 10 mg Pantoprazole Sodium (Protonix Ec Tab) 20 mg PO DAILY [facility] Last Admin: 01/15/18 09:14 Dose: 20 mg Promethazine HCl/Dextromethorphan (Phenergan Dm Syrup) 5 ml PO Q6H PRN PRN Reason: Cough Last Admin: 01/15/18 09:14 Dose: 5 ml Ranolazine (Ranexa) 500 mg PO BID [facility] Last Admin: 01/15/18 09:12 Dose: 500 mg Rosuvastatin Calcium (Crestor) 10 mg PO [facility] Last Admin: 01/14/18 21:20 Dose: 10 mg Tramadol HCl (Ultram) 50 mg PO ONCE PRN Last Admin: 01/08/18 11:57 Dose: 50 mg Tramadol HCl (Ultram) 50 mg PO BID PRN PRN Reason: Pain, moderate (4-7) Last Admin: 01/13/18 22:00 Dose: 50 mg Valproate Sodium (Depakene Cap) 250 mg PO QID [facility] Last Admin: 01/15/18 09:14 Dose: 250 mg Vitamin B Complex/Vit C/Folic Acid (Nephro-Courtney) 1 tab PO 0800 [facility] Last Admin: 01/15/18 08:12 Dose: 1 tab - Labs Labs: 01/14/18 09:42 01/14/18 09:42 PT 13.2 SECONDS (9.7-12.2) H 01/10/18 15:42 INR 1.2 01/10/18 15:42 APTT 35 SECONDS (21-34) H 01/10/18 15:42 - Constitutional Appears: Non-toxic - Head Exam Head Exam: ATRAUMATIC - Eye Exam Eye Exam: Conjunctival injection - ENT Exam ENT Exam: Mucous Membranes Moist - Neck Exam Neck Exam: Full ROM - Respiratory Exam Respiratory Exam: Decreased Breath Sounds, Rales - Cardiovascular Exam Cardiovascular Exam: REGULAR RHYTHM - GI/Abdominal Exam GI & Abdominal Exam: Normal Bowel Sounds - Back Exam Back Exam: NORMAL INSPECTION - Psychiatric Exam Psychiatric exam: Normal Affect - Skin Skin Exam: Pallor Assessment and Plan - Assessment and Plan (Free Text) Assessment: chf bronchitis ac copd hypotension improving ESRF cont current treatment Plan: as per order moniter bp
[2018-01-15] MEDS: Azithromycin 500 MG in Sodium Chloride 0.9% 250 ML IVPB SCH (10:30)
--- NOTE | 2018-01-15 16:47 | CP.PCM.PN ---
Subjective - Date & Time of Evaluation Date of Evaluation: 01/15/18 Time of Evaluation: 16:46 - Subjective Subjective: Nephrology Consultation Note: Assessment:stable Shock ? septic: improved Fluid overload/pulmonary congestion, Pneumonia chronic chest pain, A flutter Diabetic chronic Kidney Disease (E11.22) Hypertensive Chronic Kidney Disease (I12.0) End stage renal disease (N18.6) dependence on hemodialysis (Z99.2) (TTS) via AVF Anemia (D64.9), Hyperphosphatemia (E83.39), Secondary Hyperparathyroidism (E21.1 ), HTN (I12.0) CAD s/p CABG, diastolic CHF, parox A flutter/fib, intra-cardiac thrombus, hx of Heparin induced thrombocytopenia, hx of seizure, blindness Plan: plan for dialysis tomorrow as per TTS. Continue with Nephrovite 1 tab/day. last Hb 11.5 hence d/c epogen Continue with phos binders home dose BP control with meds as ordered. Glycemic control, Dialysis consistent diet Further work up/management as per primary team Dose meds/antibiotics for ESRD status. Avoid fleets enema/magnesium based laxatives. Thanks for allowing me to participate in care of your patient. Will follow patient with you. Please call if any Qs. had d/w team Dr Eric Temple Office: [phone] reason for consult: ESRD HPI: Pt is a 37 y/o transgender with hx of ESRD on hemodialysis (TTS) via permacath, chronic anemia, hyperphosphatemia, secondary hyperparathyroidism, Diabetes Mellitus, hypertension, CAD s/p CABG, diastolic CHF, pA flutter/fib, intra-cardiac thrombus, Heparin induced thrombocytopenia in past presented with complaints of SOB and cough. admitted for pnuemonia. has chronic chest pain, denies palpitation, c/o chronic shortness of breath ROS: All other negative except as in HPI. 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 he was lethargic, transferred to ICU now better improved SOB. has cough Physical Examination: General Appearance: in no acute respiratory distress, co-operative . better appearing Vitals reviewed and noted as below Head; Atraumatic, normocephalic ENT: no ulcers no thrush. Tongue is midline. Oropharynx: no rash or ulcers. EYES: Pt is blind both eyes Neck; supple no lymphadenopathy, no thyromegaly or bruit Lungs: Normal respiratory rate/effort. Breath sounds bilateral equal with improved crackle now few only Heart: Normal rate. s1s2 normal. No rub or gallop. Extremities: no edema. No varicose veins. has b/l BKA. cool to touch Neurological: Patient is awake follow commands no focal deficit Skin: Warm and dry. Normal turgor. No rash. Palpitation: Normal elasticity for age Abdomen: Abdomen is soft. Bowel sounds +. There is no abdominal tenderness, no guarding/rigidity or organomegaly Psych: limited insight and has normal affect/mood MSK: no joint tenderness or swelling. Digits and nails normal, no deformity : kidney or bladder not palpable Access: permacath Labs/imaging reviewed. Past medical history, past surgical history, family history, social history, allergy reviewed and noted as below Family Hx: no hx of CKD. Non contributory Objective - Vital Signs/Intake and Output Vital Signs (last 24 hours): Temp Pulse Resp BP Pulse Ox 97.9 F 83 20 144/73 100 01/15/18 15:00 01/15/18 15:00 01/15/18 15:00 01/15/18 15:00 01/15/18 15:00 - Medications Medications: Current Medications Acetaminophen (Tylenol 325mg Tab) 650 mg PO Q6 PRN PRN Reason: Fever >100.4 F Albuterol/Ipratropium (Duoneb 3 Mg/0.5 Mg (3 Ml) Ud) 3 ml IH RQ6 [facility] Last Admin: 01/15/18 07:10 Dose: 3 ml Amiodarone HCl (Cordarone) 200 mg PO DAILY [facility] Last Admin: 01/15/18 09:13 Dose: 200 mg Aspirin (Aspirin Chewable) 81 mg PO DAILY [facility] Last Admin: 01/15/18 09:12 Dose: 81 mg Calcium Carbonate (Oscal) 500 mg PO BID [facility] Last Admin: 01/15/18 09:12 Dose: 500 mg Docusate Sodium (Colace) 100 mg PO PRN PRN PRN Reason: Constipation Ergocalciferol (Drisdol 50,000 Intl Units Cap) 1 cap PO Q7D [facility] Last Admin: 01/13/18 12:11 Dose: 1 cap Heparin Sodium (Porcine) (Heparin) 5,000 units SC Q12 [facility] Last Admin: 01/15/18 09:14 Dose: 5,000 units Hydromorphone HCl (Dilaudid) 1 mg IVP Q6H PRN PRN Reason: Pain, moderate (4-7) Last Admin: 01/10/18 02:32 Dose: 1 mg Azithromycin 500 mg/ Sodium (Chloride) 250 mls @ 250 mls/hr IVPB DAILY [facility] PRN Reason: Protocol Last Admin: 01/15/18 10:30 Dose: 250 mls/hr Ceftriaxone Sodium (Rocephin Iv 1 Gm Duplex) 50 mls @ 50 mls/30 min IVPB DAILY [facility] PRN Reason: Protocol Last Admin: 01/15/18 10:16 Dose: 50 mls/30 min Insulin Glargine (Lantus) 10 unit SC [facility] Last Admin: 01/14/18 21:22 Dose: 10 units Insulin Human Regular (Novolin R) 0 unit SC [facility] PRN Reason: Protocol Last Admin: 01/15/18 13:31 Dose: 3 unit Lactulose (Enulose) 10 gm PO DAILY PRN Last Admin: 01/15/18 09:13 Dose: 10 gm Levetiracetam (Keppra) 500 mg PO BID [facility] Last Admin: 01/15/18 09:13 Dose: 500 mg Montelukast Sodium (Singulair) 10 mg PO [facility] Last Admin: 01/14/18 21:21 Dose: 10 mg Pantoprazole Sodium (Protonix Ec Tab) 20 mg PO DAILY [facility] Last Admin: 01/15/18 09:14 Dose: 20 mg Promethazine HCl/Dextromethorphan (Phenergan Dm Syrup) 5 ml PO Q6H PRN PRN Reason: Cough Last Admin: 01/15/18 09:14 Dose: 5 ml Ranolazine (Ranexa) 500 mg PO BID [facility] Last Admin: 01/15/18 09:12 Dose: 500 mg Rosuvastatin Calcium (Crestor) 10 mg PO HS [facility] Last Admin: 01/14/18 21:20 Dose: 10 mg Tramadol HCl (Ultram) 50 mg PO ONCE PRN Last Admin: 01/08/18 11:57 Dose: 50 mg Tramadol HCl (Ultram) 50 mg PO BID PRN PRN Reason: Pain, moderate (4-7) Last Admin: 01/13/18 22:00 Dose: 50 mg Valproate Sodium (Depakene Cap) 250 mg PO QID [facility] Last Admin: 01/15/18 13:31 Dose: 250 mg Vitamin B Complex/Vit C/Folic Acid (Nephro-Courtney) 1 tab PO 0800 [facility] Last Admin: 01/15/18 08:12 Dose: 1 tab - Labs Labs: 01/14/18 09:42 01/14/18 09:42 PT 13.2 SECONDS (9.7-12.2) H 01/10/18 15:42 INR 1.2 01/10/18 15:42 APTT 35 SECONDS (21-34) H 01/10/18 15:42
[2018-01-15] MEDS: (Lantus) Insulin Glargine, Recombinant SC SCH (21:45)
[2018-01-16] MEDS: Albuterol-Ipratrop 3 mg / 0.5 (3 ml) UD IH SCH (01:27)
[2018-01-16] MEDS: (Novolin R) Insulin Human Regular 100 units/ml vial SC SCH ×3 (07:30→17:30)
--- NOTE | 2018-01-16 07:56 | CON ---
DATE: 01/14/2018 HISTORY OF PRESENT ILLNESS: The patient is a 37-year-old male, comes to the hospital today with shortness of breath, weakness, fatigue, tiredness. The patient required admission. The patient found to have pneumonia. PHYSICAL EXAMINATION: GENERAL: The patient is awake, alert, oriented. VITAL SIGNS: Temperature 99, pulse 90. HEENT: Within normal limits. NECK: Supple. CHEST: Symmetrical. Decreased air entry. HEART: Regular. ABDOMEN: Soft. EXTREMITIES: No edema. IMPRESSION: Recurrent pneumonia, sepsis, congestive heart failure. The patient placed on bedrest. IV antibiotics. Supportive care. Kimberly Liao MD
[2018-01-16] MEDS: Multivitamin Vitamin B Complex (Nephro-Vite) Tab PO SCH (09:00)
[2018-01-16] MEDS: Ranolazine 500 mg Extended Release Tablets PO SCH ×2 (10:00→17:43)
[2018-01-16] MEDS: cefTRIAXone IV 1 gm in Dextros 50 ML IVPB SCH ×2 (10:00→14:14)
[2018-01-16] MEDS: Pantoprazole 20 mg EC Tab PO SCH (10:00)
--- NOTE | 2018-01-16 12:45 | CP.PCM.PN ---
Subjective - Date & Time of Evaluation Date of Evaluation: 01/16/18 Time of Evaluation: 12:44 - Subjective Subjective: Nephrology Consultation Note: Assessment:stable Shock ? septic: improved Fluid overload/pulmonary congestion, Pneumonia chronic chest pain, A flutter Diabetic chronic Kidney Disease (E11.22) Hypertensive Chronic Kidney Disease (I12.0) End stage renal disease (N18.6) dependence on hemodialysis (Z99.2) (TTS) via AVF Anemia (D64.9), Hyperphosphatemia (E83.39), Secondary Hyperparathyroidism (E21.1 ), HTN (I12.0) CAD s/p CABG, diastolic CHF, parox A flutter/fib, intra-cardiac thrombus, hx of Heparin induced thrombocytopenia, hx of seizure, blindness Plan: plan for dialysis today as per TTS. Continue with Nephrovite 1 tab/day. last Hb 11.5 hence d/c epogen Continue with phos binders home dose BP control with meds as ordered. Glycemic control, Dialysis consistent diet Further work up/management as per primary team Dose meds/antibiotics for ESRD status. Avoid fleets enema/magnesium based laxatives. Thanks for allowing me to participate in care of your patient. Will follow patient with you. Please call if any Qs. had d/w team Dr Eric Temple Office: [phone] reason for consult: ESRD HPI: Pt is a 37 y/o transgender with hx of ESRD on hemodialysis (TTS) via permacath, chronic anemia, hyperphosphatemia, secondary hyperparathyroidism, Diabetes Mellitus, hypertension, CAD s/p CABG, diastolic CHF, pA flutter/fib, intra-cardiac thrombus, Heparin induced thrombocytopenia in past presented with complaints of SOB and cough. admitted for pnuemonia. has chronic chest pain, denies palpitation, c/o chronic shortness of breath ROS: All other negative except as in HPI. 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 he was lethargic, transferred to ICU now better improved SOB. has cough Physical Examination: seen on HD General Appearance: in no acute respiratory distress, co-operative . better appearing Vitals reviewed and noted as below Head; Atraumatic, normocephalic ENT: no ulcers no thrush. Tongue is midline. Oropharynx: no rash or ulcers. EYES: Pt is blind both eyes Neck; supple no lymphadenopathy, no thyromegaly or bruit Lungs: Normal respiratory rate/effort. Breath sounds bilateral equal clearer Heart: Normal rate. s1s2 normal. No rub or gallop. Extremities: no edema. No varicose veins. has b/l BKA. cool to touch Neurological: Patient is awake follow commands no focal deficit Skin: Warm and dry. Normal turgor. No rash. Palpitation: Normal elasticity for age Abdomen: Abdomen is soft. Bowel sounds +. There is no abdominal tenderness, no guarding/rigidity or organomegaly Psych: limited insight and has normal affect/mood MSK: no joint tenderness or swelling. Digits and nails normal, no deformity : kidney or bladder not palpable Access: permacath Labs/imaging reviewed. Past medical history, past surgical history, family history, social history, allergy reviewed and noted as below Family Hx: no hx of CKD. Non contributory Objective - Vital Signs/Intake and Output Vital Signs (last 24 hours): Temp Pulse Resp BP Pulse Ox 97.9 F 86 16 162/94 H 100 01/16/18 09:45 01/16/18 09:35 01/16/18 09:45 01/16/18 10:15 01/16/18 09:45 - Medications Medications: Current Medications Acetaminophen (Tylenol 325mg Tab) 650 mg PO Q6 PRN PRN Reason: Fever >100.4 F Albuterol/Ipratropium (Duoneb 3 Mg/0.5 Mg (3 Ml) Ud) 3 ml IH RQ6 [facility] Last Admin: 01/16/18 01:27 Dose: Not Given Amiodarone HCl (Cordarone) 200 mg PO DAILY [facility] Last Admin: 01/15/18 09:13 Dose: 200 mg Aspirin (Aspirin Chewable) 81 mg PO DAILY [facility] Last Admin: 01/15/18 09:12 Dose: 81 mg Calcium Carbonate (Oscal) 500 mg PO BID [facility] Last Admin: 01/15/18 17:47 Dose: 500 mg Docusate Sodium (Colace) 100 mg PO PRN PRN PRN Reason: Constipation Ergocalciferol (Drisdol 50,000 Intl Units Cap) 1 cap PO Q7D [facility] Last Admin: 01/13/18 12:11 Dose: 1 cap Hydromorphone HCl (Dilaudid) 1 mg IVP Q6H PRN PRN Reason: Pain, moderate (4-7) Last Admin: 01/10/18 02:32 Dose: 1 mg Ceftriaxone Sodium (Rocephin Iv 1 Gm Duplex) 50 mls @ 50 mls/30 min IVPB DAILY [facility] PRN Reason: Protocol Last Admin: 01/15/18 10:16 Dose: 50 mls/30 min Insulin Glargine (Lantus) 10 unit SC [facility] Last Admin: 01/15/18 21:45 Dose: 10 units Insulin Human Regular (Novolin R) 0 unit SC [facility] PRN Reason: Protocol Last Admin: 01/16/18 07:30 Dose: Not Given Lactulose (Enulose) 10 gm PO DAILY PRN Last Admin: 01/15/18 09:13 Dose: 10 gm Levetiracetam (Keppra) 500 mg PO BID [facility] Last Admin: 01/15/18 17:47 Dose: 500 mg Montelukast Sodium (Singulair) 10 mg PO [facility] Last Admin: 01/15/18 21:45 Dose: 10 mg Pantoprazole Sodium (Protonix Ec Tab) 20 mg PO DAILY [facility] Last Admin: 01/15/18 09:14 Dose: 20 mg Promethazine HCl/Dextromethorphan (Phenergan Dm Syrup) 5 ml PO Q6H PRN PRN Reason: Cough Last Admin: 01/15/18 09:14 Dose: 5 ml Ranolazine (Ranexa) 500 mg PO BID [facility] Last Admin: 01/15/18 17:47 Dose: 500 mg Rosuvastatin Calcium (Crestor) 10 mg PO [facility] Last Admin: 01/15/18 21:45 Dose: 10 mg Tramadol HCl (Ultram) 50 mg PO ONCE PRN Last Admin: 01/08/18 11:57 Dose: 50 mg Tramadol HCl (Ultram) 50 mg PO BID PRN PRN Reason: Pain, moderate (4-7) Last Admin: 01/16/18 00:43 Dose: 50 mg Valproate Sodium (Depakene Cap) 250 mg PO QID [facility] Last Admin: 01/15/18 21:45 Dose: 250 mg Vitamin B Complex/Vit C/Folic Acid (Nephro-Courtney) 1 tab PO 0800 [facility] Last Admin: 01/16/18 09:00 Dose: Not Given - Labs Labs: 01/14/18 09:42 01/14/18 09:42 PT 13.2 SECONDS (9.7-12.2) H 01/10/18 15:42 INR 1.2 01/10/18 15:42 APTT 35 SECONDS (21-34) H 01/10/18 15:42
[2018-01-16] MEDS: Promethazine DM 6.25 mg-15 mg/5 ml Syrup PO PRN (14:14)
[2018-01-16 16:42] VITALS: BP 124/71; PULSE 95; RESP 20; TEMP 98.1; O2SAT 97
--- NOTE | 2018-01-16 17:10 | CP.PCM.PN ---
Subjective - Date & Time of Evaluation Date of Evaluation: 01/16/18 Time of Evaluation: 17:10 - Subjective Subjective: PATIENT WAS ADMITTED FOR ESRD AND ELEVATED TNI AAOX3 AND NO SIGN OF DISTRESS NOTED Objective - Vital Signs/Intake and Output Vital Signs (last 24 hours): Temp Pulse Resp BP Pulse Ox 98.1 F 95 H 20 124/71 97 01/16/18 16:41 01/16/18 16:41 01/16/18 16:41 01/16/18 16:41 01/16/18 16:41 - Medications Medications: Current Medications Acetaminophen (Tylenol 325mg Tab) 650 mg PO Q6 PRN PRN Reason: Fever >100.4 F Amiodarone HCl (Cordarone) 200 mg PO DAILY [facility] Last Admin: 01/16/18 14:14 Dose: 200 mg Aspirin (Aspirin Chewable) 81 mg PO DAILY [facility] Last Admin: 01/16/18 14:14 Dose: 81 mg Calcium Carbonate (Oscal) 500 mg PO BID [facility] Last Admin: 01/16/18 10:00 Dose: Not Given Docusate Sodium (Colace) 100 mg PO PRN PRN PRN Reason: Constipation Ergocalciferol (Drisdol 50,000 Intl Units Cap) 1 cap PO Q7D [facility] Last Admin: 01/13/18 12:11 Dose: 1 cap Hydromorphone HCl (Dilaudid) 1 mg IVP Q6H PRN PRN Reason: Pain, moderate (4-7) Last Admin: 01/10/18 02:32 Dose: 1 mg Ceftriaxone Sodium (Rocephin Iv 1 Gm Duplex) 50 mls @ 50 mls/30 min IVPB DAILY [facility] PRN Reason: Protocol Last Admin: 01/16/18 14:14 Dose: 50 mls/30 min Insulin Glargine (Lantus) 10 unit SC HS [facility] Last Admin: 01/15/18 21:45 Dose: 10 units Insulin Human Regular (Novolin R) 0 unit SC ACHS [facility] PRN Reason: Protocol Last Admin: 01/16/18 11:30 Dose: Not Given Lactulose (Enulose) 10 gm PO DAILY PRN Last Admin: 01/15/18 09:13 Dose: 10 gm Levetiracetam (Keppra) 500 mg PO BID [facility] Last Admin: 01/16/18 10:00 Dose: Not Given Montelukast Sodium (Singulair) 10 mg PO HS [facility] Last Admin: 01/15/18 21:45 Dose: 10 mg Pantoprazole Sodium (Protonix Ec Tab) 20 mg PO DAILY [facility] Last Admin: 01/16/18 10:00 Dose: Not Given Promethazine HCl/Dextromethorphan (Phenergan Dm Syrup) 5 ml PO Q6H PRN PRN Reason: Cough Last Admin: 01/16/18 14:14 Dose: 5 ml Ranolazine (Ranexa) 500 mg PO BID [facility] Last Admin: 01/16/18 10:00 Dose: Not Given Rosuvastatin Calcium (Crestor) 10 mg PO HS [facility] Last Admin: 01/15/18 21:45 Dose: 10 mg Tramadol HCl (Ultram) 50 mg PO ONCE PRN Last Admin: 01/08/18 11:57 Dose: 50 mg Tramadol HCl (Ultram) 50 mg PO BID PRN PRN Reason: Pain, moderate (4-7) Last Admin: 01/16/18 00:43 Dose: 50 mg Valproate Sodium (Depakene Cap) 250 mg PO QID [facility] Last Admin: 01/16/18 14:13 Dose: 250 mg Vitamin B Complex/Vit C/Folic Acid (Nephro-Courtney) 1 tab PO 0800 [facility] Last Admin: 01/16/18 09:00 Dose: Not Given - Labs Labs: 01/14/18 09:42 01/14/18 09:42 PT 13.2 SECONDS (9.7-12.2) H 01/10/18 15:42 INR 1.2 01/10/18 15:42 APTT 35 SECONDS (21-34) H 01/10/18 15:42 Assessment and Plan - Assessment and Plan (Free Text) Assessment: PATIENT SEEN AND EXAMINED AT THE BEDSIDE LUNG SOUND CLEAR LITO BP IS 124/88 PATIENT ADVISE TO HOLD SOME OF HER BP MEDS UNTIL FURTHER EVAL BY PMD DISCUSS WITH DR BELL WHO AGREE AND CLEAR PATIENT FOR DC FOLLOW UP WITH DR BELL AT HER OFFICE NEXT WEEK ----CALL FOR APPOINTMENT CONTINUE ALL YOUR MEDICATION EXCEPT NORVASC AND IMDUR ( SEE DR BELL BEFORE RESUME THOSE 2 BLOOD PRESSURE MEDICATIONS) CHECK YOUR BLOOD PRESSURE DAILY AT HOME AND CALL DR BELL IF BLOOD PRESSURE IS GREATER THAN 150 SYSTOLIC CONTINUE HEMODIALYSIS USUAL ACTIVITY TOLERATED CALL DR BELL OR GO TO THE EMERGENCY ROOM IF SYMPTOMS RETURN OR WORSENING DISCUSS WITH PATIENT WHO AGREE AND VERBALIZED UNDERSTANDING
--- NOTE | 2018-01-16 18:45 | CP.PCM.PN ---
Subjective - Date & Time of Evaluation Date of Evaluation: 01/16/18 Time of Evaluation: 04:00 - Subjective Subjective: pt feels beter less cough had dialysis bp improved Objective - Vital Signs/Intake and Output Vital Signs (last 24 hours): Temp Pulse Resp BP Pulse Ox 98.1 F 95 H 20 124/71 97 01/16/18 16:41 01/16/18 16:41 01/16/18 16:41 01/16/18 16:41 01/16/18 16:41 - Medications Medications: Current Medications Acetaminophen (Tylenol 325mg Tab) 650 mg PO Q6 PRN PRN Reason: Fever >100.4 F Amiodarone HCl (Cordarone) 200 mg PO DAILY [facility] Last Admin: 01/16/18 14:14 Dose: 200 mg Aspirin (Aspirin Chewable) 81 mg PO DAILY [facility] Last Admin: 01/16/18 14:14 Dose: 81 mg Calcium Carbonate (Oscal) 500 mg PO BID [facility] Last Admin: 01/16/18 17:43 Dose: 500 mg Docusate Sodium (Colace) 100 mg PO PRN PRN PRN Reason: Constipation Ergocalciferol (Drisdol 50,000 Intl Units Cap) 1 cap PO Q7D [facility] Last Admin: 01/13/18 12:11 Dose: 1 cap Hydromorphone HCl (Dilaudid) 1 mg IVP Q6H PRN PRN Reason: Pain, moderate (4-7) Last Admin: 01/10/18 02:32 Dose: 1 mg Ceftriaxone Sodium (Rocephin Iv 1 Gm Duplex) 50 mls @ 50 mls/30 min IVPB DAILY [facility] PRN Reason: Protocol Last Admin: 01/16/18 14:14 Dose: 50 mls/30 min Insulin Glargine (Lantus) 10 unit SC HS [facility] Last Admin: 01/15/18 21:45 Dose: 10 units Insulin Human Regular (Novolin R) 0 unit SC ACHS [facility] PRN Reason: Protocol Last Admin: 01/16/18 17:30 Dose: 4 unit Lactulose (Enulose) 10 gm PO DAILY PRN Last Admin: 01/15/18 09:13 Dose: 10 gm Levetiracetam (Keppra) 500 mg PO BID [facility] Last Admin: 01/16/18 17:43 Dose: 500 mg Montelukast Sodium (Singulair) 10 mg PO [facility] Last Admin: 01/15/18 21:45 Dose: 10 mg Pantoprazole Sodium (Protonix Ec Tab) 20 mg PO DAILY [facility] Last Admin: 01/16/18 10:00 Dose: Not Given Promethazine HCl/Dextromethorphan (Phenergan Dm Syrup) 5 ml PO Q6H PRN PRN Reason: Cough Last Admin: 01/16/18 14:14 Dose: 5 ml Ranolazine (Ranexa) 500 mg PO BID [facility] Last Admin: 01/16/18 17:43 Dose: 500 mg Rosuvastatin Calcium (Crestor) 10 mg PO [facility] Last Admin: 01/15/18 21:45 Dose: 10 mg Tramadol HCl (Ultram) 50 mg PO ONCE PRN Last Admin: 01/08/18 11:57 Dose: 50 mg Tramadol HCl (Ultram) 50 mg PO BID PRN PRN Reason: Pain, moderate (4-7) Last Admin: 01/16/18 00:43 Dose: 50 mg Valproate Sodium (Depakene Cap) 250 mg PO QID [facility] Last Admin: 01/16/18 17:43 Dose: 250 mg Vitamin B Complex/Vit C/Folic Acid (Nephro-Courtney) 1 tab PO 0800 [facility] Last Admin: 01/16/18 09:00 Dose: Not Given - Labs Labs: 01/14/18 09:42 01/14/18 09:42 PT 13.2 SECONDS (9.7-12.2) H 01/10/18 15:42 INR 1.2 01/10/18 15:42 APTT 35 SECONDS (21-34) H 01/10/18 15:42 - Constitutional Appears: Non-toxic - Head Exam Head Exam: NORMAL INSPECTION - Eye Exam Eye Exam: Conjunctival injection - Neck Exam Neck Exam: Normal Inspection - Respiratory Exam Respiratory Exam: Clear to Ausculation Bilateral - Cardiovascular Exam Cardiovascular Exam: REGULAR RHYTHM - GI/Abdominal Exam GI & Abdominal Exam: Soft - Rectal Exam Rectal Exam: NORMAL INSPECTION - Back Exam Back Exam: NORMAL INSPECTION - Psychiatric Exam Psychiatric exam: Normal Affect - Skin Skin Exam: Pallor Assessment and Plan - Assessment and Plan (Free Text) Assessment: DM HTN ESRF S/P HYOTEBSION IMPROVED S/P DIARHEA IMPROVED COUGH IMPROVED WILL D/ C HOME WITH LESS BP MED
--- NOTE | 2018-01-25 09:26 | DS ---
HISTORY OF PRESENT ILLNESS: He came into the emergency room with fever and cough for a few days and getting worse and he has also chest pain. He has a history of coronary artery disease, end-stage renal failure, on dialysis, and amputation of both lower extremities. VITAL SIGNS: At the time he came in, his temperature was 97 and his pulse was 41 and 47, his respirations 21, blood pressure 139/95, and his pulse oximetry was 100. LABORATORY DATA: His sugar was 155. His BUN 31, creatinine 3.5, and his white count previously was okay. He was also having diarrhea and he was started on antibiotics. He had an x-ray and he had a CAT scan of the chest, which showed that he had enlargement of left pulmonary artery and main pulmonary artery and he had also patchy atelectasis and consolidation in anterior segment of the right upper lobe, patchy consolidation and ground-glass opacity noted in the right middle lobe and right lower lobe. He had some left lower lobe patchy ground-glass opacity. 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 He had patchy infiltrate of both right and left lungs, and he had ventricular hypertrophy. HOSPITAL COURSE: He was counseled and he was started on antibiotics and he was on oxygen. He had a cardiology consultation with Dr. Escobar because of history coronary artery disease and history of ____. He was seen by Nephrology for dialysis and he was also consulted by an loss prevention consultant because he became very hypertensive, so he had to be transferred to ICU. He stayed in ICU for a while. It was to rule out septic shock, and he was gradually able to hold his blood pressure. His blood pressure medications were completely changed and stopped. He was discharged to the floor again. In the floor, he was stable. He was intervened, monitored, and he was on Ranexa, pantoprazole, tramadol for pain, vitamin B complex, Singulair, on inhaler and nebulizer, and Keppra for history of seizures. He was discharged on these medications and to continue followup by me. He can come to the office, if he gets worse, he will come back to the hospital. FINAL DIAGNOSES: Severe coronary artery disease, bilateral pneumonia, pulmonary atherosclerosis, hypotension after hypertension, anemia, end-stage renal failure, and chronic obstructive pulmonary disease. He has some atrial flutter and he had seizures in the past, and he had some gastrointestinal bleeding at this admission. His hypertension medication was lowered and he has arteriosclerotic heart disease. He was discharged on 01/16/2018 from my service. Sybil Li MD
== END 2018-01-16 20:31 | disposition home or self-care (01) | DRG 584 ==
LOC: C.ER 19:00 → C.9E 23:53 → C.5S 01-08 10:30 → C.9I 01-10 14:38 → C.3T 01-12 19:03 → C.5S 01-13 12:52
PROVIDERS: ADMIT Internal Medicine; ATTEND Internal Medicine
PROC: 02HV33Z Insertion of Infusion Device into Superior Vena Cava, Percutaneous Approach (ICD-10-PCS; principal; 2018-01-07)
PROC: B548ZZA Ultrasonography of Superior Vena Cava, Guidance (ICD-10-PCS; 2018-01-07)
DX: A41.9 Sepsis, unspecified organism (principal); J18.9 Pneumonia, unspecified organism; I50.32 Chronic diastolic (congestive) heart failure; N18.6 End stage renal disease; I13.2 Hypertensive heart and chronic kidney disease with heart failure and with stage 5 chronic kidney disease, or end stage renal disease; E11.319 Type 2 diabetes mellitus with unspecified diabetic retinopathy without macular edema; E11.51 Type 2 diabetes mellitus with diabetic peripheral angiopathy without gangrene; J44.0 Chronic obstructive pulmonary disease with (acute) lower respiratory infection; E11.22 Type 2 diabetes mellitus with diabetic chronic kidney disease; I48.92 Unspecified atrial flutter; K92.2 Gastrointestinal hemorrhage, unspecified; D64.9 Anemia, unspecified; E55.9 Vitamin D deficiency, unspecified; E78.00 Pure hypercholesterolemia, unspecified; F02.80 Dementia in other diseases classified elsewhere, unspecified severity, without behavioral disturbance, psychotic disturbance, mood disturbance, and anxiety; F33.9 Major depressive disorder, recurrent, unspecified; F64.9 Gender identity disorder, unspecified; G30.9 Alzheimer's disease, unspecified; G62.9 Polyneuropathy, unspecified; H54.8 Legal blindness, as defined in USA; H66.91 Otitis media, unspecified, right ear; H91.91 Unspecified hearing loss, right ear; I25.10 Atherosclerotic heart disease of native coronary artery without angina pectoris; I48.0 Paroxysmal atrial fibrillation; J34.2 Deviated nasal septum; K59.00 Constipation, unspecified; R65.20 Severe sepsis without septic shock; Y95 Nosocomial condition; Z79.4 Long term (current) use of insulin; Z95.1 Presence of aortocoronary bypass graft; I95.9 Hypotension, unspecified

== ENCOUNTER 2018-03-03 11:51 | Inpatient (IN) | payer OTHER ==
[2018-03-03 11:52] VITALS: PULSE 66; BMI 18.8
[2018-03-03 13:31] LABS: BASO # 0.1 K/uL (0.0-0.2); BASO % 0.6 % (0.0-2.0); EOS # 0.2 K/uL (0.0-0.7); EOS % 2.2 % (0.0-4.0); HEMOGLOBIN 9.4 g/dL (12.0-18.0); LYMPH # 1.8 K/uL (1.0-4.3); LYMPH % 18.2 % (20.0-40.0); MEAN CELL VOLUME 93.4 fL (80.0-94.0); MEAN CORPUSCULAR HEMOGLOBIN 29.3 pg (27.0-31.0); MEAN CORPUSCULAR HGB CONC 31.4 g/dL (33.0-37.0); MEAN PLATELET VOLUME 10.5 fL (7.2-11.7); MONO # 0.6 K/uL (0.0-0.8); MONO % 6.1 % (0.0-10.0); NEUT # 7.2 K/uL (1.8-7.0); NEUT % 72.9 % (50.0-75.0); RBC 3.2 Mil/uL (4.40-5.90); RED CELL DISTRIBUTION WIDTH 21.3 % (11.5-14.5); WHITE BLOOD COUNT 9.9 K/uL (4.8-10.8)
[2018-03-03 13:46] LABS: TROPONIN I 0.061 ng/mL (0.00-0.120)
[2018-03-03 13:54] LABS: ALB/GLOB RATIO 1.2 (1.0-2.1); ALBUMIN 3.9 g/dL (3.5-5.0); CALCIUM 8.7 mg/dl (8.6-10.4)
--- NOTE | 2018-03-03 14:04 | RAD ---
PROCEDURE: CHEST RADIOGRAPH, 1 VIEW HISTORY: Shortness of breath COMPARISON: 12/27/2017. FINDINGS: The right-sided dialysis catheter terminates in the right atrium. LUNGS: There is improving pulmonary edema with persistent severe pulmonary venous congestion. PLEURA: No pneumothorax. There are small pleural effusions and fluid in the minor fissure. CARDIOVASCULAR: There is persistent moderate cardiomegaly. Status post CABG. OSSEOUS STRUCTURES: No significant abnormalities. VISUALIZED UPPER ABDOMEN: Normal. OTHER FINDINGS: None. IMPRESSION: Improving congestive heart failure and pulmonary edema.
--- NOTE | 2018-03-03 14:10 | C.PDOC ---
History Of Present Illness 37 y/o male brought to ED by EMS from home with c/o chest pain and sob. Patient has multiple prior ED visits with same symptoms and currently denies fever, nausea, vomiting, cough or any other complaints at this time. Time Seen by Provider: 03/03/18 13:04 Chief Complaint (Nursing): Chest Pain History Per: Patient History/Exam Limitations: no limitations Onset/Duration Of Symptoms: Hrs Current Symptoms Are (Timing): Still Present Quality: "Pain" Past Medical History Reviewed: Historical Data, Nursing Documentation, Vital Signs Vital Signs: Last Vital Signs Temp 98.0 F 03/03/18 12:02 Pulse 77 03/03/18 12:20 Resp 16 03/03/18 12:02 BP 187/65 H 03/03/18 12:20 Pulse Ox 84 L 03/03/18 14:14 - Medical History PMH: Alzheimer's Disease, Anemia, Anxiety, Arthritis, Asthma, Atrial Fibrillation, Bronchitis, CAD, Cardia Arrhythmia, CHF, COPD, CVA, Depression, Diabetes, Deep Vein Thrombosis, Gastritis, Gastrointestinal Ulcer, Gall Bladder Disease, HTN, Hypercholesterolemia, Hypothyroidism, Pneumonia, End Stage Renal Disease, Chronic Kidney Disease, Seizures Surgical History: CABG (12/2009), Cholecystectomy (2011), Coronary Stent - [facility] (11/15/17) ABDOMINAL WALL SINOGRAM (12/31/13) C.A.T. SCAN OF ABDOMEN (10/31/13) CENTRAL VENOUS CATHETER PLACEMENT WITH GUIDANCE (02/10/15) CHANGE OTHER DEVICE IN TRUNK SUBCU/FASCIA, DIRECTOR OF EPIDEMIOLOGY APPROACH (06/01/17) DILATE R ANT TIB ART W DRUG-ELUT INTRALUM, PERC (08/12/15) DILATION OF LEFT FEMORAL ARTERY, PERCUTANEOUS APPROACH (07/04/16) DILATION OF RIGHT FEMORAL ARTERY, PERCUTANEOUS APPROACH (08/12/15) DILATION OF RIGHT POPLITEAL ARTERY, PERCUTANEOUS APPROACH (08/12/15) DX ULTRASOUND-HEART (01/05/13) ENTERAL INFUSION OF CONCENTRATED NUT. SUBSTANCES (06/28/13) EXCIS DEBRIDE OF WOUND, INFECT, OR BURN (08/03/14) EXCISION OF STOMACH, ENDO, DIAGN (03/03/17) EXTIRPATION OF MATTER FROM L FEM ART, PERC APPROACH (07/04/16) EXTIRPATION OF MATTER FROM R FEM ART, PERC APPROACH (08/12/15) EXTIRPATION OF MATTER FROM R POPL ART, PERC APPROACH (08/12/15) FLUOROSCOPY OF L LOW EXTREM ART USING L OSM CONTRAST (08/12/15) FLUOROSCOPY OF R LOW EXTREM ART USING L OSM CONTRAST (08/12/15) FLUOROSCOPY OF RIGHT JUGULAR VEINS, GUIDANCE (06/01/17) FREE SKIN GRAFT NEC (08/03/14) HEAD SOFT TISS X-RAY NEC (04/15/13) HEMODIALYSIS (04/28/15) INCIS W REM OF FORIEGN BODY OR DEV FROM SKIN & SUBCUT TISSUE (08/08/13) INSERT INFUSION DEV IN R INT JUGULAR VEIN, PERC (06/01/17) INSERTION OF INFUSION DEV INTO R SUBCLAV VEIN, PERC APPROACH (01/19/16) INSERTION OF INFUSION DEV INTO SUP VENA CAVA, PERC APPROACH (01/07/18) INSPECTION OF UPPER INTESTINAL TRACT, ENDO (03/03/17) INTRODUCE OF OTH THROMBOLYTIC INTO PERIPH ART, PERC APPROACH (08/12/15) LAPAROSCOPIC CHOLECYSTECTOMY (09/21/13) LOC EXC LES METATAR/TAR (06/01/14) PACKED CELL TRANSFUSION (06/01/14) PERCUTAN LIVER ASPIRAT (12/31/13) PERFORMANCE OF URINARY FILTRATION, MULTIPLE (05/17/17) PERFORMANCE OF URINARY FILTRATION, SINGLE (12/18/16) SKIN & SUBQ INCISION NEC (10/24/14) TETANUS TOXOID ADMINIST (06/13/14) TRANSFUSE NONAUT RED BLOOD CELLS IN PERIPH VEIN, PERC (04/09/17) ULTRASONOGRAPHY OF RIGHT AND LEFT HEART (04/09/17) ULTRASONOGRAPHY OF SUPERIOR VENA CAVA, GUIDANCE (01/07/18) VENOUS CATHETERIZATION FOR RENAL DIALYSIS (08/08/13) VENOUS CATHETERIZATION NEC (04/30/13) Family History: States: No Known Family Hx - Social History Hx Tobacco Use: No Hx Alcohol Use: No Hx Substance Use: No - Immunization History Hx Tetanus Toxoid Vaccination: Yes Hx Influenza Vaccination: Yes Hx Pneumococcal Vaccination: Yes Review Of Systems Constitutional: Negative for: Fever, Chills Cardiovascular: Positive for: Chest Pain Respiratory: Positive for: Shortness of Breath Gastrointestinal: Negative for: Nausea, Vomiting Skin: Negative for: Rash Physical Exam - Physical Exam Appears: Non-toxic, No Acute Distress Skin: Warm, Dry, No Rash Head: Atraumatic, Normacephalic Eye(s): bilateral: Other (blind ) Oral Mucosa: Moist Neck: Supple Chest: Other (cath to right upper chest) Cardiovascular: Rhythm Regular Respiratory: Normal Breath Sounds, No Rales, No Rhonchi, No Wheezing Gastrointestinal/Abdominal: Soft, No Tenderness, No Guarding, No Rebound Extremity: Other (bilateral BKA. Early pressure sore to left anterior lateral knee) Neurological/Psych: Oriented x3, Normal Speech, Normal Motor, Normal Sensation ED Course And Treatment - Laboratory Results Result Diagrams: 03/03/18 13:17 03/03/18 13:17 Lab Interpretation: Abnormal (elev glu, trop neg.) ECG: Interpreted By Me ECG Rhythm: Sinus Rhythm ECG Interpretation: Normal Rate From EC O2 Sat by Pulse Oximetry: 84 (RA) Pulse Ox Interpretation: Abnormal - Radiology CXR: Interpreted by Me CXR Interpretation: Yes: Heart Size (+ megaly, + fluid overloaded) Progress Note: insulin 10 IV for glucose 541 Reevaluation Time: 14:19 Reassessment Condition: Improved - Physician Consult Information Outcome Of Conversation: 1320 and 1415 d/w Dr. Sybil Li, ok to adm. will arrange HD today and PICC line insertion Medical Decision Making Medical Decision Making: Progress: D/W Dr. Li @1320, admitted patient to her service. Disposition Doctor Will See Patient In The: Hospital Counseled Patient/Family Regarding: Studies Performed, Diagnosis - Disposition Disposition: HOSPITALIZED Disposition Time: 14:20 Condition: GOOD Forms: [facility] (Belarusian) - Clinical Impression Clinical Impression: SOB (shortness of breath), CHF exacerbation, ESRD (end stage renal disease) - Scribe Statement The provider has reviewed the documentation as recorded by the Marlonibrigoberto Tsai All medical record entries made by the Scribe were at my direction and personally dictated by me. I have reviewed the chart and agree that the record accurately reflects my personal performance of the history, physical exam, medical decision making, and the department course for this patient. I have also personally directed, reviewed, and agree with the discharge instructions and disposition.
[2018-03-03] MEDS ORDERED: (Novolin R) Insulin Human Regular 100 units/ml vial ONE (14:11)
[2018-03-03] MEDS ORDERED: (Novolin R) Insulin Human Regular 100 units/ml vial IV STA (14:15)
--- NOTE | 2018-03-03 16:22 | CP.PCM.HP ---
History of Present Illness - History of Present Illness History of Present Illness: pt came for chest pain sob started last night known cad his bs mor than 500 Present on Admission - Present on Admission Any Indicators Present on Admission: Yes Review of Systems - Review of Systems Systems not reviewed;Unavailable: Acuity of Condition, Respiratory Distress - EENT Eyes: Blind Spots Ears: As Per HPI Nose/Mouth/Throat: As Per HPI - Cardiovascular Cardiovascular: Chest Pain at Rest, Dyspnea, Leg Ulcers Additional comments: s/p bilateral amputation - Respiratory Respiratory: Dyspnea - Gastrointestinal Gastrointestinal: Abdominal Pain, Bloating, Constipation - Genitourinary Genitourinary: As Per HPI - Reproductive: Male Reproductive:Male: As Per HPI Additional comments: [email or web address] - Integumentary Integumentary: Skin Ulcer - Neurological Neurological: Loss of Vision - Psychiatric Psychiatric: As Per HPI - Endocrine Endocrine: Fatigue, Polyphagia, Polyuria - Hematologic/Lymphatic Hematologic: As Per HPI Past Patient History - Infectious Disease Hx of Infectious Diseases: None - Tetanus Immunizations Tetanus Immunization: >10 years Ago - Past Medical History & Family History Past Medical History?: Yes - Past Social History Smoking Status: Never Smoked - CARDIAC Hx Atrial Fibrillation: Yes Hx Cardia Arrhythmia: Yes Hx Congestive Heart Failure: Yes Hx Hypercholesterolemia: Yes Hx Hypertension: Yes - PULMONARY Hx Asthma: Yes Hx Bronchitis: Yes Hx Chronic Obstructive Pulmonary Disease (COPD): Yes Hx Pneumonia: Yes - NEUROLOGICAL Hx Alzheimer's Disease: Yes Hx Seizures: Yes - HEENT Hx HEENT Problems: Yes Hx Blind: Yes (legally blind) Hx Cataracts: Yes - RENAL Hx Chronic Kidney Disease: Yes - ENDOCRINE/METABOLIC Hx Hypothyroidism: Yes - HEMATOLOGICAL/ONCOLOGICAL Hx Anemia: Yes - INTEGUMENTARY Hx Dermatological Problems: No - MUSCULOSKELETAL/RHEUMATOLOGICAL Hx Arthritis: Yes - GASTROINTESTINAL Hx Gall Bladder Disease: Yes Hx Gastritis: Yes - GENITOURINARY/GYNECOLOGICAL Hx Sexually Transmitted Disorders: No - PSYCHIATRIC Hx Anxiety: Yes Hx Depression: Yes Hx Substance Use: No - SURGICAL HISTORY Hx Cholecystectomy: Yes (2011) 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/2009) Hx Coronary Stent: Yes - ANESTHESIA Hx Anesthesia: Yes Hx Anesthesia Reactions: No Hx Malignant Hyperthermia: No Meds Allergies/Adverse Reactions: Allergies Allergy/AdvReac Type Severity Reaction Status Date / Time acetaminophen [From Percocet] Allergy RASH Verified 03/03/18 12:04 atenolol Allergy RASH Verified 03/03/18 12:04 digoxin Allergy RASH Verified 03/03/18 12:04 milk Allergy ITCHING Verified 03/03/18 12:04 morphine Allergy RASH Verified 03/03/18 12:04 oxycodone HCl [From Percocet] Allergy RASH Verified 03/03/18 12:04 Physical Exam - Constitutional Appears: In Acute Distress - Head Exam Head Exam: ATRAUMATIC - Eye Exam Additional comments: blind - ENT Exam ENT Exam: Mucous Membranes Moist - Neck Exam Neck exam: Positive for: Full Rom - Respiratory Exam Respiratory Exam: Decreased Breath Sounds, Rales - Cardiovascular Exam Cardiovascular Exam: REGULAR RHYTHM - GI/Abdominal Exam GI & Abdominal Exam: Normal Bowel Sounds, Tenderness - Back Exam Back exam: CVA tenderness (L) Results - Vital Signs Recent Vital Signs: Last Vital Signs Temp 98.0 F 03/03/18 12:02 Pulse 98 H 03/03/18 15:23 Resp 16 03/03/18 15:23 BP 234/86 H 03/03/18 15:48 Pulse Ox 97 03/03/18 15:23 - Labs Result Diagrams: 03/03/18 13:17 03/03/18 13:17 Labs: Laboratory Results - last 24 hr 03/03/18 03/03/18 03/03/18 11:58 12:00 13:17 WBC 9.9 RBC 3.20 L Hgb 9.4 L D Hct 29.9 L MCV 93.4 D MCH 29.3 MCHC 31.4 L RDW 21.3 H Plt Count 204 MPV 10.5 Neut % (Auto) 72.9 Lymph % (Auto) 18.2 L [place] % (Auto) 6.1 Eos % (Auto) 2.2 Baso % (Auto) 0.6 Neut # (Auto) 7.2 H Lymph # (Auto) 1.8 [place] # (Auto) 0.6 Eos # (Auto) 0.2 Baso # (Auto) 0.1 Sodium Potassium Chloride Carbon Dioxide Anion Gap BUN Creatinine Est GFR ( Amer) Est GFR (Non-Af Amer) POC Glucose (mg/dL) > 500 H* > 500 H* Random Glucose Calcium Total Bilirubin AST ALT Alkaline Phosphatase Troponin I NT-Pro-B Natriuret Pep Total Protein Albumin Globulin Albumin/Globulin Ratio 03/03/18 03/03/18 13:17 15:28 WBC RBC Hgb Hct MCV MCH MCHC RDW Plt Count MPV Neut % (Auto) Lymph % (Auto) [place] % (Auto) Eos % (Auto) Baso % (Auto) Neut # (Auto) Lymph # (Auto) [place] # (Auto) Eos # (Auto) Baso # (Auto) Sodium 135 Potassium 4.3 Chloride 95 L Carbon Dioxide 24 Anion Gap 20 BUN 37 H Creatinine 5.1 H Est GFR ( Amer) 16 Est GFR (Non-Af Amer) 13 POC Glucose (mg/dL) 291 H Random Glucose 541 H* D Calcium 8.7 Total Bilirubin 0.8 AST 30 ALT 11 L D Alkaline Phosphatase 234 H D Troponin I 0.0610 NT-Pro-B Natriuret Pep 487297 H Total Protein 7.1 Albumin 3.9 Globulin 3.2 Albumin/Globulin Ratio 1.2 Assessment & Plan - Assessment and Plan (Free Text) Assessment: ac chest pain cad dmid uncontroled ESRF PVD LEG ULCERINFECTION Plan: ADMIT AND PER ORDERS - Date & Time Date: 03/03/18 Time: 16:26
[2018-03-03] MEDS ORDERED: Ergocalciferol 50,000 Intl Units Cap PO SCH (16:30)
[2018-03-03] MEDS: (Novolog) Insulin Aspart, Recombinant 100 u/ml 10 ml vial SC SCH ×2 (16:35→21:50)
[2018-03-03] MEDS: Albuterol-Ipratrop 3 mg / 0.5 (3 ml) UD INH SCH (19:50)
[2018-03-03] MEDS: Ranolazine 500 mg Extended Release Tablets PO SCH (20:07)
[2018-03-03] MEDS: (Lantus) Insulin Glargine, Recombinant SC SCH (21:50)
[2018-03-04] MEDS: Albuterol-Ipratrop 3 mg / 0.5 (3 ml) UD INH SCH ×7 (01:54→23:41)
[2018-03-04] MEDS: (Novolog) Insulin Aspart, Recombinant 100 u/ml 10 ml vial SC SCH ×5 (03:38→22:07)
[2018-03-04] MEDS ORDERED: (Novolog) Insulin Aspart, Recombinant 100 u/ml 10 ml vial SC SCH (07:30)
[2018-03-04] MEDS: Multivitamin Vitamin B Complex (Nephro-Vite) Tab PO SCH (09:10)
[2018-03-04] MEDS ORDERED: EPOETIN ALFA 4,000 UNIT/ML ML Dialysis IV SCH (10:00)
[2018-03-04] MEDS: Pantoprazole 20 mg EC Tab PO SCH (11:14)
[2018-03-04] MEDS: Ranolazine 500 mg Extended Release Tablets PO SCH ×2 (11:14→19:53)
--- NOTE | 2018-03-04 12:20 | CP.PCM.PN ---
Subjective - Date & Time of Evaluation Date of Evaluation: 03/04/18 Time of Evaluation: 12:17 - Subjective Subjective: no chest pain today had itching body Objective - Vital Signs/Intake and Output Vital Signs (last 24 hours): Temp Pulse Resp BP Pulse Ox 98.0 F 65 20 182/81 H 97 03/04/18 08:35 03/04/18 11:13 03/04/18 08:35 03/04/18 11:13 03/04/18 08:35 - Medications Medications: Current Medications Albuterol/Ipratropium (Duoneb 3 Mg/0.5 Mg (3 Ml) Ud) 3 ml INH RQ4 [facility] Last Admin: 03/04/18 11:52 Dose: Not Given Amiodarone HCl (Cordarone) 200 mg PO DAILY [facility] Last Admin: 03/04/18 11:14 Dose: 200 mg Amlodipine Besylate (Norvasc) 10 mg PO DAILY [facility] Aspirin (Ecotrin) 81 mg PO DAILY [facility] Last Admin: 03/04/18 11:15 Dose: 81 mg Calcium Carbonate (Oscal) 500 mg PO DAILY [facility] Last Admin: 03/04/18 11:14 Dose: 500 mg Carvedilol (Coreg) 25 mg PO BID [facility] Last Admin: 03/04/18 11:14 Dose: Not Given Diphenhydramine HCl (Benadryl) 25 mg PO Q6 PRN PRN Reason: Itching / Pruritus Last Admin: 03/04/18 09:09 Dose: 25 mg Docusate Sodium (Colace) 100 mg PO DAILY PRN PRN Reason: Constipation Epoetin Tom (Procrit) 4,000 unit IV TTS [facility] Ergocalciferol (Drisdol 50,000 Intl Units Cap) 1 cap PO Q7D [facility] Last Admin: 03/03/18 20:13 Dose: 1 cap Heparin Sodium (Porcine) (Heparin) 5,000 units SC Q12 [facility] Last Admin: 03/04/18 11:15 Dose: Not Given Hydralazine HCl (Apresoline) 50 mg PO Q8H [facility] Insulin Aspart (Novolog) 0 unit SC ACHS [facility] PRN Reason: Protocol Last Admin: 03/04/18 09:09 Dose: 2 unit Insulin Glargine (Lantus) 10 unit SC HS [facility] Last Admin: 07/02/18 21:50 Dose: 10 unit Isosorbide Mononitrate (Imdur) 60 mg PO DAILY [facility] Last Admin: 03/04/18 11:15 Dose: 60 mg Lactulose (Enulose) 20 gm PO [facility] Last Admin: 03/03/18 21:49 Dose: 20 gm Levetiracetam (Keppra) 500 mg PO BID [facility] Last Admin: 03/04/18 11:14 Dose: 500 mg Montelukast Sodium (Singulair) 10 mg PO [facility] Last Admin: 03/03/18 21:49 Dose: 10 mg Pantoprazole Sodium (Protonix Ec Tab) 20 mg PO DAILY [facility] Last Admin: 03/04/18 11:14 Dose: 20 mg Ranolazine (Ranexa) 500 mg PO BID [facility] Last Admin: 03/04/18 11:14 Dose: 500 mg Rosuvastatin Calcium (Crestor) 10 mg PO [facility] Last Admin: 03/03/18 21:49 Dose: 10 mg Sertraline HCl (Zoloft) 50 mg PO DAILY [facility] Last Admin: 03/04/18 11:14 Dose: 50 mg Tramadol HCl (Ultram) 50 mg PO Q6 PRN PRN Reason: Pain, moderate (4-7) Last Admin: 03/04/18 09:09 Dose: 50 mg Valproate Sodium (Depakene Cap) 250 mg PO QID [facility] Last Admin: 03/04/18 11:14 Dose: 250 mg Vitamin B Complex/Vit C/Folic Acid (Nephro-Courtney) 1 tab PO 0800 [facility] Last Admin: 03/04/18 09:10 Dose: 1 tab - Labs Labs: 03/03/18 13:17 03/03/18 13:17 - Constitutional Appears: Non-toxic - Head Exam Head Exam: NORMAL INSPECTION - Eye Exam Additional comments: blind - ENT Exam ENT Exam: Normal Exam - Neck Exam Neck Exam: Full ROM - Respiratory Exam Respiratory Exam: Decreased Breath Sounds - Cardiovascular Exam Cardiovascular Exam: Bradycardia, REGULAR RHYTHM - GI/Abdominal Exam GI & Abdominal Exam: Normal Bowel Sounds - Rectal Exam Rectal Exam: NORMAL INSPECTION - Extremities Exam Additional comments: s/p bilateral amputation - Back Exam Back Exam: CVA tenderness (L) - Psychiatric Exam Psychiatric exam: Normal Affect - Skin Skin Exam: Pallor Assessment and Plan - Assessment and Plan (Free Text) Assessment: s/chest pain improved cad esrf dmid uncontroled seizer Plan: cont as per orders
[2018-03-04 16:26] VITALS: RESP 20
--- NOTE | 2018-03-04 16:48 | CP.PCM.CON ---
History of Present Illness - History of Present Illness History of Present Illness: Nephrology Consultation Note: Assessment:stable Fluid overload/pulmonary congestion chronic chest pain, A flutter Diabetic chronic Kidney Disease (E11.22) Hypertensive Chronic Kidney Disease (I12.0) End stage renal disease (N18.6) dependence on hemodialysis (Z99.2) (TTS) via AVF Anemia (D64.9), Hyperphosphatemia (E83.39), Secondary Hyperparathyroidism (E21.1 ), HTN (I12.0) CAD s/p CABG, diastolic CHF, parox A flutter/fib, intra-cardiac thrombus, hx of Heparin induced thrombocytopenia, hx of seizure, blindness Plan: plan for dialysis today as per TTS. Continue with Nephrovite 1 tab/day. last Hb 9.4, ordered [facility] with HD Continue with phos binders home dose BP control with meds as ordered. Glycemic control, Dialysis consistent diet Further work up/management as per primary team Dose meds/antibiotics for ESRD status. Avoid fleets enema/magnesium based laxatives. Thanks for allowing me to participate in care of your patient. Will follow patient with you. Please call if any Qs. had d/w team Dr Eric Temple Office: [phone] CC; Chest pain and SOB reason for consult: ESRD HPI: Pt is a 37 y/o transgender with hx of ESRD on hemodialysis (TTS) via permacath, chronic anemia, hyperphosphatemia, secondary hyperparathyroidism, Diabetes Mellitus, hypertension, CAD s/p CABG, diastolic CHF, pA flutter/fib, intra-cardiac thrombus, Heparin induced thrombocytopenia in past presented with complaints of SOB and chronic chest pain, denies palpitation, c/o chronic shortness of breath but better ROS: All other negative except as in HPI. now better improved SOB. has cough and chronic chest pain, no GI symptoms Physical Examination: General Appearance: in no acute respiratory distress, co-operative . Vitals reviewed and noted as below Head; Atraumatic, normocephalic ENT: no ulcers no thrush. Tongue is midline. Oropharynx: no rash or ulcers. EYES: Pt is blind both eyes Neck; supple no lymphadenopathy, no thyromegaly or bruit Lungs: Normal respiratory rate/effort. Breath sounds bilateral equal clearer Heart: Normal rate. s1s2 normal. No rub or gallop. Extremities: no edema. No varicose veins. has b/l BKA. Neurological: Patient is awake follow commands no focal deficit Skin: Warm and dry. Normal turgor. No rash. Palpitation: Normal elasticity for age Abdomen: Abdomen is soft. Bowel sounds +. There is no abdominal tenderness, no guarding/rigidity or organomegaly Psych: limited insight and has normal affect/mood MSK: no joint tenderness or swelling. Digits and nails normal, no deformity : kidney or bladder not palpable Access: permacath Labs/imaging reviewed. Past medical history, past surgical history, family history, social history, allergy reviewed and noted as below Family Hx: no hx of CKD. Non contributory Past Patient History - Infectious Disease Hx of Infectious Diseases: None - Tetanus Immunizations Tetanus Immunization: >10 years Ago - Past Medical History & Family History Past Medical History?: Yes - Past Social History Smoking Status: Never Smoked - CARDIAC Hx Cardiac Disorders: Yes Hx Atrial Fibrillation: Yes Hx Cardia Arrhythmia: Yes Hx Congestive Heart Failure: Yes Hx Hypercholesterolemia: Yes Hx Hypertension: Yes - PULMONARY Hx Respiratory Disorders: Yes Hx Asthma: Yes Hx Bronchitis: Yes Hx Chronic Obstructive Pulmonary Disease (COPD): Yes Hx Pneumonia: Yes - NEUROLOGICAL Hx Alzheimer's Disease: Yes Hx Seizures: Yes - HEENT Hx HEENT Problems: Yes Hx Blind: Yes (legally blind) Hx Cataracts: Yes - RENAL Hx Chronic Kidney Disease: Yes Hx Dialysis: Yes Date of Last Dialysis Treatment: 03/01/18 - ENDOCRINE/METABOLIC Hx Endocrine Disorders: Yes Hx Hypothyroidism: Yes - HEMATOLOGICAL/ONCOLOGICAL Hx Blood Disorders: Yes Hx Anemia: Yes - INTEGUMENTARY Hx Dermatological Problems: No - MUSCULOSKELETAL/RHEUMATOLOGICAL Hx Musculoskeletal Disorders: Yes Hx Arthritis: Yes Hx Falls: No - GASTROINTESTINAL Hx Gastrointestinal Disorders: Yes Hx Gall Bladder Disease: Yes Hx Gastritis: Yes - GENITOURINARY/GYNECOLOGICAL Hx Genitourinary Disorders: No Hx Sexually Transmitted Disorders: No - PSYCHIATRIC Hx Anxiety: Yes Hx Depression: Yes Hx Substance Use: No - SURGICAL HISTORY Hx Surgeries: Yes Hx Cholecystectomy: Yes (2011) 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/2009) Hx Coronary Stent: Yes - ANESTHESIA Hx Anesthesia: Yes Hx Anesthesia Reactions: No Hx Malignant Hyperthermia: No Has any member of the family had a problem w/ anesthesia?: No Meds Allergies/Adverse Reactions: Allergies Allergy/AdvReac Type Severity Reaction Status Date / Time acetaminophen [From Percocet] Allergy RASH Verified 03/03/18 12:04 atenolol Allergy RASH Verified 03/03/18 12:04 digoxin Allergy RASH Verified 03/03/18 12:04 milk Allergy ITCHING Verified 03/03/18 12:04 morphine Allergy RASH Verified 03/03/18 12:04 oxycodone HCl [From Percocet] Allergy RASH Verified 03/03/18 12:04 - Medications Medications: Current Medications Albuterol/Ipratropium (Duoneb 3 Mg/0.5 Mg (3 Ml) Ud) 3 ml INH RQ4 [facility] Last Admin: 03/04/18 16:03 Dose: Not Given Amiodarone HCl (Cordarone) 200 mg PO DAILY [facility] Last Admin: 03/04/18 11:14 Dose: 200 mg Amlodipine Besylate (Norvasc) 10 mg PO DAILY [facility] Last Admin: 03/04/18 11:14 Dose: Not Given Aspirin (Ecotrin) 81 mg PO DAILY [facility] Last Admin: 03/04/18 11:15 Dose: 81 mg Calcium Carbonate (Oscal) 500 mg PO DAILY [facility] Last Admin: 03/04/18 11:14 Dose: 500 mg Carvedilol (Coreg) 25 mg PO BID [facility] Last Admin: 03/04/18 11:14 Dose: Not Given Diphenhydramine HCl (Benadryl) 25 mg PO Q6 PRN PRN Reason: Itching / Pruritus Last Admin: 03/04/18 09:09 Dose: 25 mg Docusate Sodium (Colace) 100 mg PO DAILY PRN PRN Reason: Constipation Epoetin Tom (Procrit) 4,000 unit IV TTS [facility] Ergocalciferol (Drisdol 50,000 Intl Units Cap) 1 cap PO Q7D [facility] Last Admin: 03/03/18 20:13 Dose: 1 cap Heparin Sodium (Porcine) (Heparin) 5,000 units SC Q12 [facility] Last Admin: 03/04/18 11:15 Dose: Not Given Hydralazine HCl (Apresoline) 50 mg PO Q8 [facility] Last Admin: 03/04/18 13:32 Dose: Not Given Insulin Aspart (Novolog) 0 unit SC ACHS [facility] PRN Reason: Protocol Last Admin: 03/04/18 13:29 Dose: 1 unit Insulin Glargine (Lantus) 10 unit SC [facility] Last Admin: 03/03/18 21:50 Dose: 10 unit Isosorbide Mononitrate (Imdur) 60 mg PO DAILY [facility] Last Admin: 03/04/18 11:15 Dose: 60 mg Lactulose (Enulose) 20 gm PO [facility] Last Admin: 03/03/18 21:49 Dose: 20 gm Levetiracetam (Keppra) 500 mg PO BID [facility] Last Admin: 03/04/18 11:14 Dose: 500 mg Montelukast Sodium (Singulair) 10 mg PO [facility] Last Admin: 03/03/18 21:49 Dose: 10 mg Pantoprazole Sodium (Protonix Ec Tab) 20 mg PO DAILY [facility] Last Admin: 03/04/18 11:14 Dose: 20 mg Ranolazine (Ranexa) 500 mg PO BID [facility] Last Admin: 03/04/18 11:14 Dose: 500 mg Rosuvastatin Calcium (Crestor) 10 mg PO [facility] Last Admin: 03/03/18 21:49 Dose: 10 mg Sertraline HCl (Zoloft) 50 mg PO DAILY [facility] Last Admin: 03/04/18 11:14 Dose: 50 mg Tramadol HCl (Ultram) 50 mg PO Q6 PRN PRN Reason: Pain, moderate (4-7) Last Admin: 03/04/18 09:09 Dose: 50 mg Valproate Sodium (Depakene Cap) 250 mg PO QID [facility] Last Admin: 03/04/18 14:29 Dose: 250 mg Vitamin B Complex/Vit C/Folic Acid (Nephro-Courtney) 1 tab PO 0800 [facility] Last Admin: 03/04/18 09:10 Dose: 1 tab Results - Vital Signs Recent Vital Signs: Last Vital Signs Temp 97.5 F L 03/04/18 15:10 Pulse 72 03/04/18 15:10 Resp 20 03/04/18 16:26 BP 176/94 H 03/04/18 16:26 Pulse Ox 99 03/04/18 16:26 - Labs Result Diagrams: 03/03/18 13:17 03/03/18 13:17 Labs: Laboratory Results - last 24 hr 03/03/18 03/03/18 03/04/18 16:54 21:13 03:32 POC Glucose (mg/dL) 350 H 431 H* CK-MB (Mass) 0.46 03/04/18 03/04/18 06:03 11:57 POC Glucose (mg/dL) 233 H 186 H CK-MB (Mass)
[2018-03-04] MEDS: (Lantus) Insulin Glargine, Recombinant SC SCH (22:07)
--- NOTE | 2018-03-04 23:44 | CARD ---
APPROVED REPORT EKG Measurement Heart [id number] <Conclusion> Normal sinus rhythm Possible Left atrial enlargement Left ventricular hypertrophy with QRS widening and repolarization abnormality Possible Inferior infarct, age undetermined Abnormal ECG
[2018-03-05] MEDS: (Novolog) Insulin Aspart, Recombinant 100 u/ml 10 ml vial SC SCH ×3 (02:50→12:30)
[2018-03-05] MEDS: Albuterol-Ipratrop 3 mg / 0.5 (3 ml) UD INH SCH ×3 (03:18→13:20)
[2018-03-05 08:01] VITALS: TEMP 97.8; O2SAT 98
[2018-03-05] MEDS: Multivitamin Vitamin B Complex (Nephro-Vite) Tab PO SCH (09:00)
[2018-03-05 09:41] VITALS: PULSE 71
[2018-03-05] MEDS: Ranolazine 500 mg Extended Release Tablets PO SCH (09:42)
[2018-03-05] MEDS: Pantoprazole 20 mg EC Tab PO SCH (09:42)
--- NOTE | 2018-03-05 10:46 | CP.PCM.PN ---
Subjective - Date & Time of Evaluation Date of Evaluation: 03/05/18 Time of Evaluation: 10:43 - Subjective Subjective: feels good anxious to go home no cough no pain no sob bs hi increase his insulin Objective - Vital Signs/Intake and Output Vital Signs (last 24 hours): Temp Pulse Resp BP Pulse Ox 97.8 F 71 20 141/87 98 03/05/18 07:00 03/05/18 09:41 03/05/18 07:00 03/05/18 09:42 03/05/18 07:00 - Medications Medications: Current Medications Albuterol/Ipratropium (Duoneb 3 Mg/0.5 Mg (3 Ml) Ud) 3 ml INH RQ4 [facility] Last Admin: 03/05/18 07:46 Dose: Not Given Amiodarone HCl (Cordarone) 200 mg PO DAILY [facility] Last Admin: 03/05/18 09:43 Dose: 200 mg Amlodipine Besylate (Norvasc) 10 mg PO DAILY [facility] Last Admin: 03/05/18 09:43 Dose: 10 mg Aspirin (Ecotrin) 81 mg PO DAILY [facility] Last Admin: 03/05/18 09:43 Dose: 81 mg Calcium Carbonate (Oscal) 500 mg PO DAILY [facility] Last Admin: 03/05/18 09:43 Dose: 500 mg Carvedilol (Coreg) 25 mg PO BID [facility] Last Admin: 03/05/18 09:42 Dose: 25 mg Diphenhydramine HCl (Benadryl) 25 mg PO Q6 PRN PRN Reason: Itching / Pruritus Last Admin: 03/05/18 04:11 Dose: 25 mg Docusate Sodium (Colace) 100 mg PO DAILY PRN PRN Reason: Constipation Epoetin Tom (Procrit) 4,000 unit IV TTS [facility] Ergocalciferol (Drisdol 50,000 Intl Units Cap) 1 cap PO Q7D [facility] Last Admin: 03/03/18 20:13 Dose: 1 cap Heparin Sodium (Porcine) (Heparin) 5,000 units SC Q12 [facility] Last Admin: 03/05/18 09:43 Dose: Not Given Hydralazine HCl (Apresoline) 50 mg PO Q8 [facility] Last Admin: 03/05/18 06:26 Dose: 50 mg Insulin Aspart (Novolog) 0 unit SC ACHS [facility] PRN Reason: Protocol Last Admin: 03/05/18 08:30 Dose: 1 unit Insulin Detemir (Levemir) 10 unit SC BID [facility] Insulin Glargine (Lantus) 10 unit SC [facility] Last Admin: 03/04/18 22:07 Dose: 10 unit Isosorbide Mononitrate (Imdur) 60 mg PO DAILY [facility] Last Admin: 03/05/18 09:43 Dose: 60 mg Lactulose (Enulose) 20 gm PO [facility] Last Admin: 03/04/18 21:29 Dose: Not Given Levetiracetam (Keppra) 500 mg PO BID [facility] Last Admin: 03/05/18 09:42 Dose: 500 mg Montelukast Sodium (Singulair) 10 mg PO [facility] Last Admin: 03/04/18 22:07 Dose: 10 mg Pantoprazole Sodium (Protonix Ec Tab) 20 mg PO DAILY [facility] Last Admin: 03/05/18 09:42 Dose: 20 mg Ranolazine (Ranexa) 500 mg PO BID [facility] Last Admin: 03/05/18 09:42 Dose: 500 mg Rosuvastatin Calcium (Crestor) 10 mg PO [facility] Last Admin: 03/04/18 22:07 Dose: 10 mg Sertraline HCl (Zoloft) 50 mg PO DAILY [facility] Last Admin: 03/05/18 09:43 Dose: 50 mg Tramadol HCl (Ultram) 50 mg PO Q6 PRN PRN Reason: Pain, moderate (4-7) Last Admin: 03/05/18 04:11 Dose: 50 mg Valproate Sodium (Depakene Cap) 250 mg PO QID [facility] Last Admin: 03/05/18 09:43 Dose: 250 mg Vitamin B Complex/Vit C/Folic Acid (Nephro-Courtney) 1 tab PO 0800 [facility] Last Admin: 03/05/18 09:00 Dose: 1 tab - Labs Labs: 03/03/18 13:17 03/03/18 13:17 - Constitutional Appears: Non-toxic - Head Exam Head Exam: NORMAL INSPECTION - Eye Exam Additional comments: blind - ENT Exam ENT Exam: Mucous Membranes Moist - Neck Exam Neck Exam: Full ROM - Respiratory Exam Respiratory Exam: Clear to Ausculation Bilateral - Cardiovascular Exam Cardiovascular Exam: REGULAR RHYTHM - Rectal Exam Rectal Exam: NORMAL INSPECTION - Exam Exam: NORMAL INSPECTION - Back Exam Back Exam: NORMAL INSPECTION - Neurological Exam Neurological Exam: Alert, Oriented x3 - Psychiatric Exam Psychiatric exam: Normal Affect - Skin Skin Exam: Normal Color Assessment and Plan - Assessment and Plan (Free Text) Assessment: s/p chest pain uncontroled dmid esrf Plan: disch today
[2018-03-05] MEDS ORDERED: Insulin Detemir 100 units/ml Vial (Levemir) SC SCH (11:00)
--- NOTE | 2018-03-05 12:16 | CP.PCM.PN ---
Subjective - Date & Time of Evaluation Date of Evaluation: 03/05/18 Time of Evaluation: 12:15 - Subjective Subjective: Nephrology Consultation Note: Assessment:stable Fluid overload/pulmonary congestion chronic chest pain, A flutter Diabetic chronic Kidney Disease (E11.22) Hypertensive Chronic Kidney Disease (I12.0) End stage renal disease (N18.6) dependence on hemodialysis (Z99.2) (TTS) via AVF Anemia (D64.9), Hyperphosphatemia (E83.39), Secondary Hyperparathyroidism (E21.1 ), HTN (I12.0) CAD s/p CABG, diastolic CHF, parox A flutter/fib, intra-cardiac thrombus, hx of Heparin induced thrombocytopenia, hx of seizure, blindness Plan: plan for dialysis tomorrow as per TTS. Continue with Nephrovite 1 tab/day. last Hb 9.4, ordered [facility] with HD Continue with phos binders home dose BP control with meds as ordered. Glycemic control, Dialysis consistent diet Further work up/management as per primary team Dose meds/antibiotics for ESRD status. Avoid fleets enema/magnesium based laxatives. Thanks for allowing me to participate in care of your patient. Will follow patient with you. Please call if any Qs. had d/w team Dr Eric Temple Office: [phone] CC; Chest pain and SOB reason for consult: ESRD HPI: Pt is a 37 y/o transgender with hx of ESRD on hemodialysis (TTS) via permacath, chronic anemia, hyperphosphatemia, secondary hyperparathyroidism, Diabetes Mellitus, hypertension, CAD s/p CABG, diastolic CHF, pA flutter/fib, intra-cardiac thrombus, Heparin induced thrombocytopenia in past presented with complaints of SOB and chronic chest pain, denies palpitation, c/o chronic shortness of breath but better ROS: All other negative except as in HPI. now better improved SOB/chronic chest pain, no GI symptoms Physical Examination: General Appearance: in no acute respiratory distress, co-operative . Vitals reviewed and noted as below Head; Atraumatic, normocephalic ENT: no ulcers no thrush. Tongue is midline. Oropharynx: no rash or ulcers. EYES: Pt is blind both eyes Neck; supple no lymphadenopathy, no thyromegaly or bruit Lungs: Normal respiratory rate/effort. Breath sounds bilateral equal clearer Heart: Normal rate. s1s2 normal. No rub or gallop. Extremities: no edema. No varicose veins. has b/l BKA. Neurological: Patient is awake follow commands no focal deficit Skin: Warm and dry. Normal turgor. No rash. Palpitation: Normal elasticity for age Abdomen: Abdomen is soft. Bowel sounds +. There is no abdominal tenderness, no guarding/rigidity or organomegaly Psych: limited insight and has normal affect/mood MSK: no joint tenderness or swelling. Digits and nails normal, no deformity : kidney or bladder not palpable Access: permacath Labs/imaging reviewed. Past medical history, past surgical history, family history, social history, allergy reviewed and noted as below Family Hx: no hx of CKD. Non contributory Objective - Vital Signs/Intake and Output Vital Signs (last 24 hours): Temp Pulse Resp BP Pulse Ox 97.8 F 71 20 141/87 98 03/05/18 07:00 03/05/18 09:41 03/05/18 07:00 03/05/18 09:42 03/05/18 07:00 - Medications Medications: Current Medications Albuterol/Ipratropium (Duoneb 3 Mg/0.5 Mg (3 Ml) Ud) 3 ml INH RQ4 [facility] Last Admin: 03/05/18 07:46 Dose: Not Given Amiodarone HCl (Cordarone) 200 mg PO DAILY [facility] Last Admin: 03/05/18 09:43 Dose: 200 mg Amlodipine Besylate (Norvasc) 10 mg PO DAILY [facility] Last Admin: 03/05/18 09:43 Dose: 10 mg Aspirin (Ecotrin) 81 mg PO DAILY [facility] Last Admin: 03/05/18 09:43 Dose: 81 mg Calcium Carbonate (Oscal) 500 mg PO DAILY [facility] Last Admin: 03/05/18 09:43 Dose: 500 mg Carvedilol (Coreg) 25 mg PO BID [facility] Last Admin: 03/05/18 09:42 Dose: 25 mg Diphenhydramine HCl (Benadryl) 25 mg PO Q6 PRN PRN Reason: Itching / Pruritus Last Admin: 03/05/18 04:11 Dose: 25 mg Docusate Sodium (Colace) 100 mg PO DAILY PRN PRN Reason: Constipation Epoetin Tom (Procrit) 4,000 unit IV TTS [facility] Ergocalciferol (Drisdol 50,000 Intl Units Cap) 1 cap PO Q7D [facility] Last Admin: 03/03/18 20:13 Dose: 1 cap Heparin Sodium (Porcine) (Heparin) 5,000 units SC Q12 [facility] Last Admin: 03/05/18 09:43 Dose: Not Given Hydralazine HCl (Apresoline) 50 mg PO Q8 [facility] Last Admin: 03/05/18 06:26 Dose: 50 mg Insulin Aspart (Novolog) 0 unit SC ACHS [facility] PRN Reason: Protocol Last Admin: 03/05/18 08:30 Dose: 1 unit Insulin Detemir (Levemir) 10 unit SC BID [facility] Last Admin: 03/05/18 11:43 Dose: 10 units Insulin Glargine (Lantus) 10 unit SC [facility] Last Admin: 03/04/18 22:07 Dose: 10 unit Isosorbide Mononitrate (Imdur) 60 mg PO DAILY [facility] Last Admin: 03/05/18 09:43 Dose: 60 mg Lactulose (Enulose) 20 gm PO [facility] Last Admin: 03/04/18 21:29 Dose: Not Given Levetiracetam (Keppra) 500 mg PO BID [facility] Last Admin: 03/05/18 09:42 Dose: 500 mg Montelukast Sodium (Singulair) 10 mg PO [facility] Last Admin: 03/04/18 22:07 Dose: 10 mg Pantoprazole Sodium (Protonix Ec Tab) 20 mg PO DAILY [facility] Last Admin: 03/05/18 09:42 Dose: 20 mg Ranolazine (Ranexa) 500 mg PO BID [facility] Last Admin: 03/05/18 09:42 Dose: 500 mg Rosuvastatin Calcium (Crestor) 10 mg PO HS [facility] Last Admin: 03/04/18 22:07 Dose: 10 mg Sertraline HCl (Zoloft) 50 mg PO DAILY [facility] Last Admin: 03/05/18 09:43 Dose: 50 mg Tramadol HCl (Ultram) 50 mg PO Q6 PRN PRN Reason: Pain, moderate (4-7) Last Admin: 03/05/18 04:11 Dose: 50 mg Valproate Sodium (Depakene Cap) 250 mg PO QID [facility] Last Admin: 03/05/18 09:43 Dose: 250 mg Vitamin B Complex/Vit C/Folic Acid (Nephro-Courtney) 1 tab PO 0800 [facility] Last Admin: 03/05/18 09:00 Dose: 1 tab - Labs Labs: 03/03/18 13:17 03/03/18 13:17
[2018-03-05 13:43] VITALS: BP 112/65
== END 2018-03-05 14:10 | disposition home or self-care (01) | DRG 544 ==
LOC: C.ER 11:51 → C.9E 14:15 → C.5S 15:52
PROVIDERS: ADMIT Internal Medicine; ATTEND Internal Medicine
PROC: 5A1D70Z Performance of Urinary Filtration, Intermittent, Less than 6 Hours Per Day (ICD-10-PCS; principal; 2018-03-04)
DX: I13.2 Hypertensive heart and chronic kidney disease with heart failure and with stage 5 chronic kidney disease, or end stage renal disease (principal); I50.32 Chronic diastolic (congestive) heart failure; I48.92 Unspecified atrial flutter; J44.9 Chronic obstructive pulmonary disease, unspecified; N18.6 End stage renal disease; E11.51 Type 2 diabetes mellitus with diabetic peripheral angiopathy without gangrene; E11.22 Type 2 diabetes mellitus with diabetic chronic kidney disease; I25.10 Atherosclerotic heart disease of native coronary artery without angina pectoris; I48.0 Paroxysmal atrial fibrillation; H54.8 Legal blindness, as defined in USA; N25.81 Secondary hyperparathyroidism of renal origin; E78.00 Pure hypercholesterolemia, unspecified; E83.39 Other disorders of phosphorus metabolism; F02.80 Dementia in other diseases classified elsewhere, unspecified severity, without behavioral disturbance, psychotic disturbance, mood disturbance, and anxiety; G30.9 Alzheimer's disease, unspecified; F64.9 Gender identity disorder, unspecified; G89.29 Other chronic pain; I51.3 Intracardiac thrombosis, not elsewhere classified; E03.9 Hypothyroidism, unspecified; D64.9 Anemia, unspecified; Z86.73 Personal history of transient ischemic attack (TIA), and cerebral infarction without residual deficits; Z87.11 Personal history of peptic ulcer disease; Z87.01 Personal history of pneumonia (recurrent); Z90.49 Acquired absence of other specified parts of digestive tract; Z95.1 Presence of aortocoronary bypass graft; Z95.5 Presence of coronary angioplasty implant and graft; Z99.2 Dependence on renal dialysis

== ENCOUNTER 2018-03-26 16:08 | Inpatient (IN) | payer OTHER ==
[2018-03-26 16:09] VITALS: PULSE 66; BMI 18.8
--- NOTE | 2018-03-26 16:39 | C.PDOC ---
History Of Present Illness 37yo male, history of ESRD, bilateral BKA, comes to ER via EMS for evaluation of chest pain, shortness of breath, cough and fever since yesterday. Patient reports he only had 3 hours of his dialysis treatment instead of the usual 4 hours due to the chest pain. He denies any vomiting, abdominal pain, weakness, and offers no additional medical complaints. Time Seen by Provider: 03/26/18 16:15 Chief Complaint (Nursing): Chest Pain History Per: Patient Onset/Duration Of Symptoms: Days (1) Current Symptoms Are (Timing): Still Present Quality: "Pain" Associated Symptoms: denies: Nausea, Dyspnea, Diaphoresis, Syncope Additional History Per: Patient Past Medical History Reviewed: Historical Data, Nursing Documentation, Vital Signs Vital Signs: Last Vital Signs Temp Pulse 81 03/26/18 16:40 Resp 21 03/26/18 16:13 BP 217/73 H 03/26/18 16:13 Pulse Ox 100 03/26/18 16:40 - Medical History PMH: Alzheimer's Disease, Anemia, Anxiety, Arthritis, Asthma, Atrial Fibrillation, Bronchitis, CAD, Cardia Arrhythmia, CHF, COPD, CVA, Depression, Diabetes, Deep Vein Thrombosis, Gastritis, Gastrointestinal Ulcer, Gall Bladder Disease, HTN, Hypercholesterolemia, Hypothyroidism, Pneumonia, End Stage Renal Disease, Chronic Kidney Disease, Seizures Denies: Hyperthyroidism, Kidney Stones, Sexually Transmitted Disease Surgical History: CABG (12/2009), Cholecystectomy (2011), Coronary Stent - [facility] (03/03/18) ABDOMINAL WALL SINOGRAM (12/31/13) C.A.T. SCAN OF ABDOMEN (10/31/13) CENTRAL VENOUS CATHETER PLACEMENT WITH GUIDANCE (02/10/15) CHANGE OTHER DEVICE IN TRUNK SUBCU/FASCIA, TAPE MACHINE TAILER APPROACH (06/01/17) DILATE R ANT TIB ART W DRUG-ELUT INTRALUM, PERC (08/12/15) DILATION OF LEFT FEMORAL ARTERY, PERCUTANEOUS APPROACH (07/04/16) DILATION OF RIGHT FEMORAL ARTERY, PERCUTANEOUS APPROACH (08/12/15) DILATION OF RIGHT POPLITEAL ARTERY, PERCUTANEOUS APPROACH (08/12/15) DX ULTRASOUND-HEART (01/05/13) ENTERAL INFUSION OF CONCENTRATED NUT. SUBSTANCES (06/28/13) EXCIS DEBRIDE OF WOUND, INFECT, OR BURN (08/03/14) EXCISION OF STOMACH, ENDO, DIAGN (03/03/17) EXTIRPATION OF MATTER FROM L FEM ART, PERC APPROACH (07/04/16) EXTIRPATION OF MATTER FROM R FEM ART, PERC APPROACH (08/12/15) EXTIRPATION OF MATTER FROM R POPL ART, PERC APPROACH (08/12/15) FLUOROSCOPY OF L LOW EXTREM ART USING L OSM CONTRAST (08/12/15) FLUOROSCOPY OF R LOW EXTREM ART USING L OSM CONTRAST (08/12/15) FLUOROSCOPY OF RIGHT JUGULAR VEINS, GUIDANCE (06/01/17) FREE SKIN GRAFT NEC (08/03/14) HEAD SOFT TISS X-RAY NEC (04/15/13) HEMODIALYSIS (04/28/15) INCIS W REM OF FORIEGN BODY OR DEV FROM SKIN & SUBCUT TISSUE (08/08/13) INSERT INFUSION DEV IN R INT JUGULAR VEIN, PERC (06/01/17) INSERTION OF INFUSION DEV INTO R SUBCLAV VEIN, PERC APPROACH (01/19/16) INSERTION OF INFUSION DEV INTO SUP VENA CAVA, PERC APPROACH (01/07/18) INSPECTION OF UPPER INTESTINAL TRACT, ENDO (03/03/17) INTRODUCE OF OTH THROMBOLYTIC INTO PERIPH ART, PERC APPROACH (08/12/15) LAPAROSCOPIC CHOLECYSTECTOMY (09/21/13) LOC EXC LES METATAR/TAR (06/01/14) PACKED CELL TRANSFUSION (06/01/14) PERCUTAN LIVER ASPIRAT (12/31/13) PERFORMANCE OF URINARY FILTRATION, MULTIPLE (05/17/17) PERFORMANCE OF URINARY FILTRATION, SINGLE (12/18/16) SKIN & SUBQ INCISION NEC (10/24/14) TETANUS TOXOID ADMINIST (06/13/14) TRANSFUSE NONAUT RED BLOOD CELLS IN PERIPH VEIN, PERC (04/09/17) ULTRASONOGRAPHY OF RIGHT AND LEFT HEART (04/09/17) ULTRASONOGRAPHY OF SUPERIOR VENA CAVA, GUIDANCE (01/07/18) VENOUS CATHETERIZATION FOR RENAL DIALYSIS (08/08/13) VENOUS CATHETERIZATION NEC (04/30/13) Family History: States: No Known Family Hx - Social History Hx Tobacco Use: No Hx Alcohol Use: No Hx Substance Use: No - Immunization History Hx Tetanus Toxoid Vaccination: Yes Hx Influenza Vaccination: Yes Hx Pneumococcal Vaccination: Yes Review Of Systems Constitutional: Positive for: Fever. Negative for: Chills Cardiovascular: Positive for: Chest Pain Respiratory: Positive for: Cough, Shortness of Breath Gastrointestinal: Negative for: Nausea, Vomiting, Abdominal Pain, Diarrhea Neurological: Negative for: Weakness Physical Exam - Physical Exam Appears: Non-toxic Skin: Warm Head: Normacephalic Eye(s): bilateral: Other (corneal opacities) Neck: Supple Chest: Symmetrical Cardiovascular: Rhythm Regular Respiratory: Rhonchi (rhonchi noted to bilateral lower lobes) Gastrointestinal/Abdominal: Normal Exam, Soft, No Tenderness, No Guarding, No Rebound Back: Normal Inspection Extremity: Deformity (bilateral BKA amputation) Neurological/Psych: Oriented x3 ED Course And Treatment - Laboratory Results Result Diagrams: 03/26/18 16:33 03/26/18 16:33 Lab Interpretation: Abnormal (Glucose 726, BNP 19007, normal troponin) ECG: Interpreted By Me ECG Rhythm: Sinus Rhythm (with LVH and wide QRS) O2 Sat by Pulse Oximetry: 100 (RA) Pulse Ox Interpretation: Normal - Radiology CXR: Interpreted by Mn CXR Interpretation: Yes: No Acute Disease, Cardiomegaly Progress Note: Labs, EKG, and CXR ordered Reevaluation Time: 17:43 Reassessment Condition: Improved (on O2 and after insulin IVP) - Physician Consult Information Time Consulting Physician Contacted: 17:43 Physician Contacted: Sybil Li Outcome Of Conversation: Patient to be admitted to her service for uncontrolled diabetes with fluid overload in ESRD. Disposition - Disposition Disposition: HOSPITALIZED Disposition Time: 17:44 Condition: GUARDED - POA Present On Arrival: Poor Glycemic Control - Clinical Impression Clinical Impression: SOB (shortness of breath), Uncontrolled diabetes mellitus, Chest pain, ESRD ( end stage renal disease) on dialysis - Marlonibe Statement The provider has reviewed the documentation as recorded by the Fabiola Allen Provider Attestation: All medical record entries made by the Fabiola were at my direction and personally dictated by me. I have reviewed the chart and agree that the record accurately reflects my personal performance of the history, physical exam, medical decision making, and the department course for this patient. I have also personally directed, reviewed, and agree with the discharge instructions and disposition.
[2018-03-26 16:42] LABS: BASO % 0.4 % (0.0-2.0); EOS # 0.2 K/uL (0.0-0.7); EOS % 2.1 % (0.0-4.0); HEMOGLOBIN 10.9 g/dL (12.0-18.0); LYMPH # 1.4 K/uL (1.0-4.3); LYMPH % 12.1 % (20.0-40.0); MEAN CELL VOLUME 91.9 fL (80.0-94.0); MEAN CORPUSCULAR HEMOGLOBIN 28.4 pg (27.0-31.0); MEAN CORPUSCULAR HGB CONC 30.9 g/dL (33.0-37.0); MEAN PLATELET VOLUME 9.8 fL (7.2-11.7); MONO # 0.6 K/uL (0.0-0.8); MONO % 5.4 % (0.0-10.0); NEUT # 9.1 K/uL (1.8-7.0); RBC 3.85 Mil/uL (4.40-5.90); RED CELL DISTRIBUTION WIDTH 20.5 % (11.5-14.5); WHITE BLOOD COUNT 11.4 K/uL (4.8-10.8)
[2018-03-26 16:59] LABS: ALB/GLOB RATIO 1.3 (1.0-2.1); ALBUMIN 4.3 g/dL (3.5-5.0); CALCIUM 8.9 mg/dl (8.6-10.4)
[2018-03-26] MEDS ORDERED: (Novolin R) Insulin Human Regular 100 units/ml vial IV ONE (17:06)
[2018-03-26 17:07] LABS: TROPONIN I 0.08 ng/mL (0.00-0.120)
--- NOTE | 2018-03-26 17:08 | RAD ---
Date of service: 03/26/2018 PROCEDURE: CHEST RADIOGRAPH, 1 VIEW HISTORY: chest pain COMPARISON: 03/03/2018 FINDINGS: The right-sided dialysis catheter terminates in the right atrium. LUNGS: Mild pulmonary venous congestion. No focal consolidation. Linear atelectasis/ scarring in the right lower lobe. PLEURA: No pneumothorax or pleural fluid seen. CARDIOVASCULAR: There is moderate cardiomegaly. Status post CABG. OSSEOUS STRUCTURES: No significant abnormalities. VISUALIZED UPPER ABDOMEN: Normal. OTHER FINDINGS: None. IMPRESSION: No active pulmonary disease. Moderate cardiomegaly and pulmonary venous congestion
[2018-03-26] MEDS ORDERED: (Novolin R) Insulin Human Regular 100 units/ml vial ONE (17:33)
[2018-03-26] MEDS ORDERED: Ergocalciferol 50,000 Intl Units Cap PO SCH (20:15)
[2018-03-26] MEDS ORDERED: Dextrose 50% SYRINGE Inj (50 ml) IV PRN (20:23)
[2018-03-26] MEDS ORDERED: Glucagon Recombinant 1 mg Inj IM PRN (20:23)
[2018-03-26 23:54] LABS: CK-MB 1.03 ng/mL (0.0-3.38); TROPONIN I 0.27 ng/mL (0.00-0.120)
[2018-03-27] MEDS ORDERED: DiphenhydrAMINE 50 mg/ml Inj IVP STA (00:05)
[2018-03-27] MEDS: Lactulose 10 gm/15 ml (Rectal Use) PR SCH ×5 (00:39→23:37)
[2018-03-27] MEDS: Albuterol-Ipratrop 3 mg / 0.5 (3 ml) UD IH SCH ×6 (00:56→20:04)
[2018-03-27 04:55] LABS: CK-MB 0.95 ng/mL (0.0-3.38)
[2018-03-27] MEDS: Multivitamin Vitamin B Complex (Nephro-Vite) Tab PO SCH (09:00)
[2018-03-27] MEDS: (Novolog) Insulin Aspart, Recombinant 100 u/ml 10 ml vial SC SCH ×4 (09:01→22:35)
--- NOTE | 2018-03-27 09:20 | CP.PCM.CON ---
History of Present Illness - History of Present Illness History of Present Illness: patient is a 37-year-old male who is well known to us with multiple medical problems including: Coronary artery disease Hx CABG; Hx PCI; bilateral BKA due diabetic PAD; labile HTN; uncontrolled DM; ESRD ON HD; PAROX AFIB/Flutter; HX GI BLEED; KlEINFELTERS; LEGALLY BLIND CHRONIC DIASTOLIC DYSFUNCTION. He has chronic non-revascularizable CAD due to diffuse diabetic small vessels and prior grafts have closed. He has intermittent Class 2 angina and recurrent episodes due to same as well as acute on chronic diastolic dysfunction from labile HTN and DM due to non-compliance. CP is resolved currently No volume overload NSR on TELE No fevers, chills, N/V Review of Systems - Review of Systems All systems: reviewed and no additional remarkable complaints except Past Patient History - Infectious Disease Hx of Infectious Diseases: None - Tetanus Immunizations Tetanus Immunization: >10 years Ago - Past Medical History & Family History Past Medical History?: Yes - Past Social History Smoking Status: Never Smoked - CARDIAC Hx Atrial Fibrillation: Yes Hx Cardia Arrhythmia: Yes Hx Congestive Heart Failure: Yes Hx Hypercholesterolemia: Yes Hx Hypertension: Yes - PULMONARY Hx Asthma: Yes Hx Bronchitis: Yes Hx Chronic Obstructive Pulmonary Disease (COPD): Yes Hx Pneumonia: Yes - NEUROLOGICAL Hx Alzheimer's Disease: Yes Hx Seizures: Yes - HEENT Hx HEENT Problems: Yes Hx Blind: Yes (legally blind) Hx Cataracts: Yes - RENAL Hx Chronic Kidney Disease: Yes Hx Kidney Stones: No - ENDOCRINE/METABOLIC Hx Hyperthyroidism: No Hx Hypothyroidism: Yes - HEMATOLOGICAL/ONCOLOGICAL Hx Anemia: Yes - INTEGUMENTARY Hx Dermatological Problems: No - MUSCULOSKELETAL/RHEUMATOLOGICAL Hx Arthritis: Yes Hx Falls: No - GASTROINTESTINAL Hx Gall Bladder Disease: Yes Hx Gastritis: Yes - GENITOURINARY/GYNECOLOGICAL Hx Sexually Transmitted Disorders: No - PSYCHIATRIC Hx Anxiety: Yes Hx Depression: Yes Hx Substance Use: No - SURGICAL HISTORY Hx Cholecystectomy: Yes (2011) 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/2009) Hx Coronary Stent: Yes - ANESTHESIA Hx Anesthesia: Yes Hx Anesthesia Reactions: No Hx Malignant Hyperthermia: No Meds Allergies/Adverse Reactions: Allergies Allergy/AdvReac Type Severity Reaction Status Date / Time acetaminophen [From Percocet] Allergy RASH Verified 03/03/18 12:04 atenolol Allergy RASH Verified 03/03/18 12:04 digoxin Allergy RASH Verified 03/03/18 12:04 milk Allergy ITCHING Verified 03/03/18 12:04 morphine Allergy RASH Verified 03/03/18 12:04 oxycodone HCl [From Percocet] Allergy RASH Verified 03/03/18 12:04 - Medications Medications: Current Medications Albuterol/Ipratropium (Duoneb 3 Mg/0.5 Mg (3 Ml) Ud) 3 ml IH Q4 [facility] Last Admin: 03/27/18 07:22 Dose: Not Given Amiodarone HCl (Cordarone) 200 mg PO DAILY [facility] Aspirin (Aspirin Chewable) 81 mg PO DAILY [facility] Calcium Carbonate (Oscal) 500 mg PO BID [facility] Carvedilol (Coreg) 25 mg PO BID [facility] Last Admin: 03/27/18 09:01 Dose: 25 mg Clonidine HCl (Catapres) 0.2 mg PO Q8 [facility] Last Admin: 03/27/18 09:00 Dose: 0.2 mg Dextrose (Dextrose 50% Inj) 0 ml IV STAT PRN; Protocol PRN Reason: Hypoglycemia Protocol Dextrose (Glutose 15) 0 gm PO ONCE PRN; Protocol PRN Reason: Hypoglycemia Protocol Docusate Sodium (Colace) 100 mg PO PRN PRN PRN Reason: Constipation Ergocalciferol (Drisdol 50,000 Intl Units Cap) 1 cap PO Q7D [facility] Glucagon (Glucagen Diagnostic Kit) 0 mg IM STAT PRN; Protocol PRN Reason: Hypoglycemia Protocol Heparin Sodium (Porcine) (Heparin) 5,000 units SC Q12 [facility] Hydromorphone HCl (Dilaudid) 2 mg PO Q6H PRN PRN Reason: Pain, severe (8-10) Last Admin: 03/27/18 00:18 Dose: 2 mg Dextrose (Dextrose 5% In Water 1000 Ml) 1,000 mls @ 0 mls/hr IV .Q0M PRN; Protocol; Per Protocol PRN Reason: Hypoglycemia Protocol Insulin Aspart (Novolog) 0 unit SC ACHS [facility] PRN Reason: Protocol Last Admin: 03/27/18 09:01 Dose: 3 unit Insulin Glargine (Lantus) 10 unit SC HS [facility] Isosorbide Mononitrate (Imdur) 60 mg PO DAILY [facility] Lactulose (Generlac) 20 gm VA Q6 [facility] Last Admin: 03/27/18 05:15 Dose: Not Given Levetiracetam (Keppra) 500 mg PO BID [facility] Montelukast Sodium (Singulair) 10 mg PO DAILY [facility] Pantoprazole Sodium (Protonix Ec Tab) 20 mg PO DAILY [facility] Ranolazine (Ranexa) 500 mg PO BID [facility] Rosuvastatin Calcium (Crestor) 10 mg PO HS [facility] Last Admin: 03/26/18 22:51 Dose: 10 mg Sertraline HCl (Zoloft) 50 mg PO DAILY [facility] Valproate Sodium (Depakene Cap) 250 mg PO QID [facility] Last Admin: 03/26/18 22:55 Dose: Not Given Vitamin B Complex/Vit C/Folic Acid (Nephro-Courtney) 1 tab PO 0800 [facility] Last Admin: 03/27/18 09:00 Dose: 1 tab Physical Exam - Constitutional Appears: No Acute Distress - Head Exam Head Exam: ATRAUMATIC, NORMAL INSPECTION, NORMOCEPHALIC - Eye Exam Eye Exam: absent: Normal appearance - ENT Exam ENT Exam: Mucous Membranes Moist, Normal Oropharynx - Neck Exam Neck exam: Positive for: Full Rom. Negative for: Tenderness - Respiratory Exam Respiratory Exam: Clear to Auscultation Bilateral. absent: Rhonchi, Wheezes - Cardiovascular Exam Cardiovascular Exam: REGULAR RHYTHM, +S1, +S2, Systolic Murmur - GI/Abdominal Exam GI & Abdominal Exam: Normal Bowel Sounds, Soft. absent: Tenderness - Extremities Exam Extremities exam: Negative for: pedal edema - Neurological Exam Neurological exam: Alert, Oriented x3 - Psychiatric Exam Psychiatric exam: Normal Affect, Normal Mood - Skin Skin Exam: Warm Results - Vital Signs Recent Vital Signs: Last Vital Signs Temp 98.2 F 03/27/18 08:40 Pulse 85 03/27/18 08:40 Resp 18 03/27/18 08:40 BP 179/83 H 03/27/18 09:01 Pulse Ox 96 03/27/18 08:40 - Labs Result Diagrams: 03/26/18 16:33 03/26/18 16:33 Labs: Laboratory Results - last 24 hr 03/26/18 03/26/18 03/26/18 16:33 16:33 16:47 WBC 11.4 H RBC 3.85 L Hgb 10.9 L Hct 35.3 MCV 91.9 MCH 28.4 MCHC 30.9 L RDW 20.5 H Plt Count 206 MPV 9.8 Neut % (Auto) 80.0 H Lymph % (Auto) 12.1 L [place] % (Auto) 5.4 Eos % (Auto) 2.1 Baso % (Auto) 0.4 Neut # (Auto) 9.1 H Lymph # (Auto) 1.4 [place] # (Auto) 0.6 Eos # (Auto) 0.2 Baso # (Auto) 0.0 Sodium 134 Potassium 4.4 Chloride 92 L Carbon Dioxide 24 Anion Gap 24 H BUN 42 H Creatinine 4.9 H Est GFR ( Amer) 16 Est GFR (Non-Af Amer) 14 POC Glucose (mg/dL) > 500 H* Random Glucose 726 H* D Calcium 8.9 Total Bilirubin 0.6 AST 9 L D ALT 14 L D Alkaline Phosphatase 303 H D Total Creatine Kinase CK-MB (Mass) Troponin I 0.0800 NT-Pro-B Natriuret Pep 27529 H Total Protein 7.6 Albumin 4.3 Globulin 3.4 Albumin/Globulin Ratio 1.3 03/26/18 03/26/18 03/26/18 18:51 18:53 20:59 WBC RBC Hgb Hct MCV MCH MCHC RDW Plt Count MPV Neut % (Auto) Lymph % (Auto) [place] % (Auto) Eos % (Auto) Baso % (Auto) Neut # (Auto) Lymph # (Auto) [place] # (Auto) Eos # (Auto) Baso # (Auto) Sodium Potassium Chloride Carbon Dioxide Anion Gap BUN Creatinine Est GFR ( Amer) Est GFR (Non-Af Amer) POC Glucose (mg/dL) 499 H* > 500 H* 465 H* Random Glucose Calcium Total Bilirubin AST ALT Alkaline Phosphatase Total Creatine Kinase CK-MB (Mass) Troponin I NT-Pro-B Natriuret Pep Total Protein Albumin Globulin Albumin/Globulin Ratio 03/26/18 03/27/18 03/27/18 22:53 02:48 04:25 WBC RBC Hgb Hct MCV MCH MCHC RDW Plt Count MPV Neut % (Auto) Lymph % (Auto) [place] % (Auto) Eos % (Auto) Baso % (Auto) Neut # (Auto) Lymph # (Auto) [place] # (Auto) Eos # (Auto) Baso # (Auto) Sodium Potassium Chloride Carbon Dioxide Anion Gap BUN Creatinine Est GFR ( Amer) Est GFR (Non-Af Amer) POC Glucose (mg/dL) 115 H Random Glucose Calcium Total Bilirubin AST ALT Alkaline Phosphatase Total Creatine Kinase 27 L < 20 L CK-MB (Mass) 1.03 0.95 Troponin I 0.2700 H* 0.2540 H* NT-Pro-B Natriuret Pep Total Protein Albumin Globulin Albumin/Globulin Ratio 03/27/18 06:12 WBC RBC Hgb Hct MCV MCH MCHC RDW Plt Count MPV Neut % (Auto) Lymph % (Auto) [place] % (Auto) Eos % (Auto) Baso % (Auto) Neut # (Auto) Lymph # (Auto) [place] # (Auto) Eos # (Auto) Baso # (Auto) Sodium Potassium Chloride Carbon Dioxide Anion Gap BUN Creatinine Est GFR ( Amer) Est GFR (Non-Af Amer) POC Glucose (mg/dL) 209 H Random Glucose Calcium Total Bilirubin AST ALT Alkaline Phosphatase Total Creatine Kinase CK-MB (Mass) Troponin I NT-Pro-B Natriuret Pep Total Protein Albumin Globulin Albumin/Globulin Ratio - EKG Data EKG Interpreted by: Myself - EKG Data When Compared to Previous EKG: No Significant Change Interpretation: Other (NSR, LVH with strain, old inferior infarct) Assessment & Plan - Assessment and Plan (Free Text) Assessment: CP Chronic CAD with CCS class 1-2 angina Chronic diastolic and mild systolic dysfunction HTN Uncontrolled DM ESRD on HD Plan: CP has resolved No new EKG changes from prior Volume status: euvolemic: Known mild LV systolic dysfunction, restrictive diastolic dysfunction, mod-sev LVH minimal trop has been noted on multiple admissions: DDX microvascular dz, chronic CAD/demand ischemia; ESRD Given diffuse diabetic vasculopathy and small vessels: medical treatment only at this time :: control sugars :: cont Coreg, clonidine, Isosorbide, Ranexa :: suggest hydralazine 25-50 TID and titrate as needed for BP :: statin for chronic CAD :: ASA or DAPT if can be tolerated :: cont amiodarone to help maintain NSR :: DVT prophylaxis
[2018-03-27] MEDS: Pantoprazole 20 mg EC Tab PO SCH (11:25)
[2018-03-27] MEDS: Ranolazine 500 mg Extended Release Tablets PO SCH ×2 (11:25→18:56)
--- NOTE | 2018-03-27 11:29 | CARD ---
APPROVED REPORT Date of service: 03/26/2018 EKG Measurement Heart [id number] <Conclusion> Normal sinus rhythm Right atrial enlargement Left ventricular hypertrophy with QRS widening and repolarization abnormality Possible Inferior infarct, age undetermined Abnormal ECG
--- NOTE | 2018-03-27 13:32 | CP.PCM.CON ---
History of Present Illness - History of Present Illness History of Present Illness: Nephrology Consultation Note: Assessment:stable SOB, HTN urgency chronic chest pain, A flutter Diabetic chronic Kidney Disease (E11.22) Hypertensive Chronic Kidney Disease (I12.0) End stage renal disease (N18.6) dependence on hemodialysis (Z99.2) (TTS) via AVF Anemia (D64.9), Hyperphosphatemia (E83.39), Secondary Hyperparathyroidism (E21.1 ), HTN (I12.0) CAD s/p CABG, diastolic CHF, parox A flutter/fib, intra-cardiac thrombus, hx of Heparin induced thrombocytopenia, hx of seizure, blindness Plan: plan for dialysis today as per TTS. Continue with Nephrovite 1 tab/day. last Hb 10.9, hence no HANNAH with HD Continue with phos binders home dose BP control with meds as ordered. Glycemic control, Dialysis consistent diet Further work up/management as per primary team Dose meds/antibiotics for ESRD status. Avoid fleets enema/magnesium based laxatives. cardiology following Thanks for allowing me to participate in care of your patient. Will follow patient with you. Please call if any Qs. had d/w team Dr Eric Temple Office: [phone] CC; Chest pain and SOB reason for consult: ESRD HPI: Pt is a 37 y/o transgender with hx of ESRD on hemodialysis (TTS) via permacath, chronic anemia, hyperphosphatemia, secondary hyperparathyroidism, Diabetes Mellitus, hypertension, CAD s/p CABG, diastolic CHF, pA flutter/fib, intra-cardiac thrombus, Heparin induced thrombocytopenia in past presented with complaints of SOB and chronic chest pain, denies palpitation, c/o chronic shortness of breath but better ROS: All other negative except as in HPI. now better improved SOB/chronic chest pain, no GI symptoms Physical Examination: General Appearance: in no acute respiratory distress, co-operative . Vitals reviewed and noted as below Head; Atraumatic, normocephalic ENT: no ulcers no thrush. Tongue is midline. Oropharynx: no rash or ulcers. EYES: Pt is blind both eyes Neck; supple no lymphadenopathy, no thyromegaly or bruit Lungs: Normal respiratory rate/effort. Breath sounds bilateral equal clear Heart: Normal rate. s1s2 normal. No rub or gallop. Extremities: no edema. No varicose veins. has b/l BKA. Neurological: Patient is awake follow commands no focal deficit Skin: Warm and dry. Normal turgor. No rash. Palpitation: Normal elasticity for age Abdomen: Abdomen is soft. Bowel sounds +. There is no abdominal tenderness, no guarding/rigidity or organomegaly Psych: limited insight and has normal affect/mood MSK: no joint tenderness or swelling. Digits and nails normal, no deformity : kidney or bladder not palpable Access: permacath Labs/imaging reviewed. Past medical history, past surgical history, family history, social history, allergy reviewed and noted as below Family Hx: no hx of CKD. Non contributory Past Patient History - Infectious Disease Hx of Infectious Diseases: None - Tetanus Immunizations Tetanus Immunization: >10 years Ago - Past Medical History & Family History Past Medical History?: Yes - Past Social History Smoking Status: Never Smoked - CARDIAC Hx Atrial Fibrillation: Yes Hx Cardia Arrhythmia: Yes Hx Congestive Heart Failure: Yes Hx Hypercholesterolemia: Yes Hx Hypertension: Yes - PULMONARY Hx Asthma: Yes Hx Bronchitis: Yes Hx Chronic Obstructive Pulmonary Disease (COPD): Yes Hx Pneumonia: Yes - NEUROLOGICAL Hx Alzheimer's Disease: Yes Hx Seizures: Yes - HEENT Hx HEENT Problems: Yes Hx Blind: Yes (legally blind) Hx Cataracts: Yes - RENAL Hx Chronic Kidney Disease: Yes Hx Kidney Stones: No - ENDOCRINE/METABOLIC Hx Hyperthyroidism: No Hx Hypothyroidism: Yes - HEMATOLOGICAL/ONCOLOGICAL Hx Anemia: Yes - INTEGUMENTARY Hx Dermatological Problems: No - MUSCULOSKELETAL/RHEUMATOLOGICAL Hx Arthritis: Yes Hx Falls: No - GASTROINTESTINAL Hx Gall Bladder Disease: Yes Hx Gastritis: Yes - GENITOURINARY/GYNECOLOGICAL Hx Sexually Transmitted Disorders: No - PSYCHIATRIC Hx Anxiety: Yes Hx Depression: Yes Hx Substance Use: No - SURGICAL HISTORY Hx Cholecystectomy: Yes (2011) 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/2009) Hx Coronary Stent: Yes - ANESTHESIA Hx Anesthesia: Yes Hx Anesthesia Reactions: No Hx Malignant Hyperthermia: No Meds Allergies/Adverse Reactions: Allergies Allergy/AdvReac Type Severity Reaction Status Date / Time acetaminophen [From Percocet] Allergy RASH Verified 03/03/18 12:04 atenolol Allergy RASH Verified 03/03/18 12:04 digoxin Allergy RASH Verified 03/03/18 12:04 milk Allergy ITCHING Verified 03/03/18 12:04 morphine Allergy RASH Verified 03/03/18 12:04 oxycodone HCl [From Percocet] Allergy RASH Verified 03/03/18 12:04 - Medications Medications: Current Medications Albuterol/Ipratropium (Duoneb 3 Mg/0.5 Mg (3 Ml) Ud) 3 ml IH Q4 [facility] Last Admin: 03/27/18 12:17 Dose: Not Given Amiodarone HCl (Cordarone) 200 mg PO DAILY [facility] Last Admin: 03/27/18 11:26 Dose: Not Given Aspirin (Aspirin Chewable) 81 mg PO DAILY [facility] Last Admin: 03/27/18 11:24 Dose: 81 mg Calcium Carbonate (Oscal) 500 mg PO BID [facility] Last Admin: 03/27/18 11:24 Dose: 500 mg Carvedilol (Coreg) 25 mg PO BID [facility] Last Admin: 03/27/18 09:01 Dose: 25 mg Clonidine HCl (Catapres) 0.2 mg PO Q8 [facility] Last Admin: 03/27/18 09:00 Dose: 0.2 mg Dextrose (Dextrose 50% Inj) 0 ml IV STAT PRN; Protocol PRN Reason: Hypoglycemia Protocol Dextrose (Glutose 15) 0 gm PO ONCE PRN; Protocol PRN Reason: Hypoglycemia Protocol Diphenhydramine HCl (Benadryl) 25 mg PO Q6 PRN PRN Reason: Itching / Pruritus Docusate Sodium (Colace) 100 mg PO PRN PRN PRN Reason: Constipation Ergocalciferol (Drisdol 50,000 Intl Units Cap) 1 cap PO Q7D [facility] Glucagon (Glucagen Diagnostic Kit) 0 mg IM STAT PRN; Protocol PRN Reason: Hypoglycemia Protocol Heparin Sodium (Porcine) (Heparin) 5,000 units SC Q12 [facility] Last Admin: 03/27/18 11:25 Dose: Not Given Hydromorphone HCl (Dilaudid) 2 mg PO Q6H PRN PRN Reason: Pain, severe (8-10) Last Admin: 03/27/18 11:32 Dose: 2 mg Dextrose (Dextrose 5% In Water 1000 Ml) 1,000 mls @ 0 mls/hr IV .Q0M PRN; Protocol; Per Protocol PRN Reason: Hypoglycemia Protocol Insulin Aspart (Novolog) 0 unit SC ACHS [facility] PRN Reason: Protocol Last Admin: 03/27/18 12:59 Dose: 3 unit Insulin Glargine (Lantus) 10 unit SC [facility] Isosorbide Mononitrate (Imdur) 60 mg PO DAILY [facility] Last Admin: 03/27/18 11:27 Dose: Not Given Lactulose (Generlac) 20 gm IN Q6 [facility] Last Admin: 03/27/18 13:00 Dose: Not Given Levetiracetam (Keppra) 500 mg PO BID [facility] Last Admin: 03/27/18 11:24 Dose: 500 mg Montelukast Sodium (Singulair) 10 mg PO DAILY [facility] Last Admin: 03/27/18 11:25 Dose: 10 mg Pantoprazole Sodium (Protonix Ec Tab) 20 mg PO DAILY [facility] Last Admin: 03/27/18 11:25 Dose: 20 mg Ranolazine (Ranexa) 500 mg PO BID [facility] Last Admin: 03/27/18 11:25 Dose: 500 mg Rosuvastatin Calcium (Crestor) 10 mg PO HS [facility] Last Admin: 03/26/18 22:51 Dose: 10 mg Sertraline HCl (Zoloft) 50 mg PO DAILY [facility] Last Admin: 03/27/18 11:24 Dose: 50 mg Valproate Sodium (Depakene Cap) 250 mg PO QID [facility] Last Admin: 03/27/18 11:31 Dose: 250 mg Vitamin B Complex/Vit C/Folic Acid (Nephro-Courtney) 1 tab PO 0800 [facility] Last Admin: 03/27/18 09:00 Dose: 1 tab Results - Vital Signs Recent Vital Signs: Last Vital Signs Temp 98.2 F 03/27/18 08:40 Pulse 85 03/27/18 08:40 Resp 18 03/27/18 08:40 BP 179/83 H 03/27/18 09:01 Pulse Ox 96 03/27/18 08:40 - Labs Result Diagrams: 03/26/18 16:33 03/26/18 16:33 Labs: Laboratory Results - last 24 hr 03/26/18 03/26/18 03/26/18 16:33 16:33 16:47 WBC 11.4 H RBC 3.85 L Hgb 10.9 L Hct 35.3 MCV 91.9 MCH 28.4 MCHC 30.9 L RDW 20.5 H Plt Count 206 MPV 9.8 Neut % (Auto) 80.0 H Lymph % (Auto) 12.1 L Maverick % (Auto) 5.4 Eos % (Auto) 2.1 Baso % (Auto) 0.4 Neut # (Auto) 9.1 H Lymph # (Auto) 1.4 Maverick # (Auto) 0.6 Eos # (Auto) 0.2 Baso # (Auto) 0.0 Sodium 134 Potassium 4.4 Chloride 92 L Carbon Dioxide 24 Anion Gap 24 H BUN 42 H Creatinine 4.9 H Est GFR ( Amer) 16 Est GFR (Non-Af Amer) 14 POC Glucose (mg/dL) > 500 H* Random Glucose 726 H* D Calcium 8.9 Total Bilirubin 0.6 AST 9 L D ALT 14 L D Alkaline Phosphatase 303 H D Total Creatine Kinase CK-MB (Mass) Troponin I 0.0800 NT-Pro-B Natriuret Pep 20624 H Total Protein 7.6 Albumin 4.3 Globulin 3.4 Albumin/Globulin Ratio 1.3 03/26/18 03/26/18 03/26/18 18:51 18:53 20:59 WBC RBC Hgb Hct MCV MCH MCHC RDW Plt Count MPV Neut % (Auto) Lymph % (Auto) Maverick % (Auto) Eos % (Auto) Baso % (Auto) Neut # (Auto) Lymph # (Auto) Maverick # (Auto) Eos # (Auto) Baso # (Auto) Sodium Potassium Chloride Carbon Dioxide Anion Gap BUN Creatinine Est GFR ( Amer) Est GFR (Non-Af Amer) POC Glucose (mg/dL) 499 H* > 500 H* 465 H* Random Glucose Calcium Total Bilirubin AST ALT Alkaline Phosphatase Total Creatine Kinase CK-MB (Mass) Troponin I NT-Pro-B Natriuret Pep Total Protein Albumin Globulin Albumin/Globulin Ratio 03/26/18 03/27/18 03/27/18 22:53 02:48 04:25 WBC RBC Hgb Hct MCV MCH MCHC RDW Plt Count MPV Neut % (Auto) Lymph % (Auto) Maverick % (Auto) Eos % (Auto) Baso % (Auto) Neut # (Auto) Lymph # (Auto) Maverick # (Auto) Eos # (Auto) Baso # (Auto) Sodium Potassium Chloride Carbon Dioxide Anion Gap BUN Creatinine Est GFR ( Amer) Est GFR (Non-Af Amer) POC Glucose (mg/dL) 115 H Random Glucose Calcium Total Bilirubin AST ALT Alkaline Phosphatase Total Creatine Kinase 27 L < 20 L CK-MB (Mass) 1.03 0.95 Troponin I 0.2700 H* 0.2540 H* NT-Pro-B Natriuret Pep Total Protein Albumin Globulin Albumin/Globulin Ratio 03/27/18 03/27/18 06:12 11:43 WBC RBC Hgb Hct MCV MCH MCHC RDW Plt Count MPV Neut % (Auto) Lymph % (Auto) Maverick % (Auto) Eos % (Auto) Baso % (Auto) Neut # (Auto) Lymph # (Auto) Maverick # (Auto) Eos # (Auto) Baso # (Auto) Sodium Potassium Chloride Carbon Dioxide Anion Gap BUN Creatinine Est GFR ( Amer) Est GFR (Non-Af Amer) POC Glucose (mg/dL) 209 H 214 H Random Glucose Calcium Total Bilirubin AST ALT Alkaline Phosphatase Total Creatine Kinase CK-MB (Mass) Troponin I NT-Pro-B Natriuret Pep Total Protein Albumin Globulin Albumin/Globulin Ratio
--- NOTE | 2018-03-27 18:31 | CP.PCM.HP ---
History of Present Illness - History of Present Illness History of Present Illness: pt came for chest pain sob cough v hi bs 700 Present on Admission - Present on Admission Any Indicators Present on Admission: No Past Patient History - Infectious Disease Hx of Infectious Diseases: None - Tetanus Immunizations Tetanus Immunization: >10 years Ago - Past Medical History & Family History Past Medical History?: Yes - Past Social History Smoking Status: Never Smoked - CARDIAC Hx Atrial Fibrillation: Yes Hx Cardia Arrhythmia: Yes Hx Congestive Heart Failure: Yes Hx Hypercholesterolemia: Yes Hx Hypertension: Yes - PULMONARY Hx Asthma: Yes Hx Bronchitis: Yes Hx Chronic Obstructive Pulmonary Disease (COPD): Yes Hx Pneumonia: Yes - NEUROLOGICAL Hx Alzheimer's Disease: Yes Hx Seizures: Yes - HEENT Hx HEENT Problems: Yes Hx Blind: Yes (legally blind) Hx Cataracts: Yes - RENAL Hx Chronic Kidney Disease: Yes Hx Kidney Stones: No - ENDOCRINE/METABOLIC Hx Hyperthyroidism: No Hx Hypothyroidism: Yes - HEMATOLOGICAL/ONCOLOGICAL Hx Anemia: Yes - INTEGUMENTARY Hx Dermatological Problems: No - MUSCULOSKELETAL/RHEUMATOLOGICAL Hx Arthritis: Yes Hx Falls: No - GASTROINTESTINAL Hx Gall Bladder Disease: Yes Hx Gastritis: Yes - GENITOURINARY/GYNECOLOGICAL Hx Sexually Transmitted Disorders: No - PSYCHIATRIC Hx Anxiety: Yes Hx Depression: Yes Hx Substance Use: No - SURGICAL HISTORY Hx Cholecystectomy: Yes (2011) 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/2009) Hx Coronary Stent: Yes - ANESTHESIA Hx Anesthesia: Yes Hx Anesthesia Reactions: No Hx Malignant Hyperthermia: No Meds Allergies/Adverse Reactions: Allergies Allergy/AdvReac Type Severity Reaction Status Date / Time acetaminophen [From Percocet] Allergy RASH Verified 03/03/18 12:04 atenolol Allergy RASH Verified 03/03/18 12:04 digoxin Allergy RASH Verified 03/03/18 12:04 milk Allergy ITCHING Verified 03/03/18 12:04 morphine Allergy RASH Verified 03/03/18 12:04 oxycodone HCl [From Percocet] Allergy RASH Verified 03/03/18 12:04 Physical Exam - Constitutional Appears: In Acute Distress - Head Exam Head Exam: ATRAUMATIC - Eye Exam Additional comments: legaly blind - ENT Exam ENT Exam: Mucous Membranes Moist - Neck Exam Neck exam: Positive for: Full Rom - Respiratory Exam Respiratory Exam: Decreased Breath Sounds, Rales - Cardiovascular Exam Cardiovascular Exam: REGULAR RHYTHM Additional comments: enlarged ht inf infarction - GI/Abdominal Exam GI & Abdominal Exam: Normal Bowel Sounds - Rectal Exam Rectal Exam: Deferred - Exam Additional comments: klinfilter - Extremities Exam Additional comments: bilateral amputation - Back Exam Back exam: CVA tenderness (L) - Neurological Exam Neurological exam: Alert, Oriented x3 - Psychiatric Exam Psychiatric exam: Normal Mood - Skin Skin Exam: Pallor Results - Vital Signs Recent Vital Signs: Last Vital Signs Temp 97.5 F L 03/27/18 18:17 Pulse 65 03/27/18 18:17 Resp 20 03/27/18 18:17 BP 130/55 L 03/27/18 18:17 Pulse Ox 96 03/27/18 18:17 - Labs Result Diagrams: 03/26/18 16:33 03/26/18 16:33 Labs: Laboratory Results - last 24 hr 03/26/18 03/26/18 03/26/18 18:51 18:53 20:59 POC Glucose (mg/dL) 499 H* > 500 H* 465 H* Total Creatine Kinase CK-MB (Mass) Troponin I 03/26/18 03/27/18 03/27/18 22:53 02:48 04:25 POC Glucose (mg/dL) 115 H Total Creatine Kinase 27 L < 20 L CK-MB (Mass) 1.03 0.95 Troponin I 0.2700 H* 0.2540 H* 03/27/18 03/27/18 03/27/18 06:12 11:43 15:54 POC Glucose (mg/dL) 209 H 214 H 128 H Total Creatine Kinase CK-MB (Mass) Troponin I Assessment & Plan - Assessment and Plan (Free Text) Assessment: ac chest pain cad dmid uncontroled aneamia renal failiure klinfiltewr syndrome Plan: as per orders - Date & Time Date: 03/27/18 Time: 18:33
[2018-03-27] MEDS ORDERED: (Novolin R) Insulin Human Regular 100 units/ml vial SC ONE ×2 (21:21→22:22)
[2018-03-27] MEDS: (Lantus) Insulin Glargine, Recombinant SC SCH (22:34)
[2018-03-28] MEDS: Albuterol-Ipratrop 3 mg / 0.5 (3 ml) UD IH SCH ×5 (00:06→19:37)
[2018-03-28] MEDS: DiphenhydrAMINE 12.5 mg/5 ml LIQ UD (5 ml) PO PRN ×3 (01:02→10:15)
[2018-03-28] MEDS: Lactulose 10 gm/15 ml (Rectal Use) PR SCH (05:05)
[2018-03-28] MEDS: (Novolog) Insulin Aspart, Recombinant 100 u/ml 10 ml vial SC SCH ×4 (08:14→21:12)
[2018-03-28] MEDS: Multivitamin Vitamin B Complex (Nephro-Vite) Tab PO SCH (08:15)
[2018-03-28 08:36] LABS: BASO % 0.6 % (0.0-2.0); EOS # 0.3 K/uL (0.0-0.7); EOS % 3.9 % (0.0-4.0); HEMOGLOBIN 9.3 g/dL (12.0-18.0); LYMPH # 2.2 K/uL (1.0-4.3); LYMPH % 25.9 % (20.0-40.0); MEAN CORPUSCULAR HEMOGLOBIN 28.6 pg (27.0-31.0); MEAN PLATELET VOLUME 9.8 fL (7.2-11.7); MONO # 0.6 K/uL (0.0-0.8); MONO % 7.3 % (0.0-10.0); NEUT # 5.3 K/uL (1.8-7.0); NEUT % 62.3 % (50.0-75.0); RBC 3.24 Mil/uL (4.40-5.90); RED CELL DISTRIBUTION WIDTH 20.1 % (11.5-14.5); WHITE BLOOD COUNT 8.5 K/uL (4.8-10.8)
[2018-03-28 08:37] LABS: MEAN CELL VOLUME 89.2 fL (80.0-94.0)
[2018-03-28 08:53] LABS: ALB/GLOB RATIO 1.2 (1.0-2.1); ALBUMIN 3.7 g/dL (3.5-5.0); CALCIUM 9.1 mg/dl (8.6-10.4)
[2018-03-28] MEDS: Pantoprazole 20 mg EC Tab PO SCH (10:00)
[2018-03-28] MEDS: Ranolazine 500 mg Extended Release Tablets PO SCH ×2 (10:00→17:36)
--- NOTE | 2018-03-28 10:59 | CP.PCM.PN ---
Subjective - Date & Time of Evaluation Date of Evaluation: 03/28/18 Time of Evaluation: 10:56 - Subjective Subjective: c/o of abd pain no bowel movements for few days chest pain improved sob Objective - Vital Signs/Intake and Output Vital Signs (last 24 hours): Temp Pulse Resp BP Pulse Ox 97.8 F 57 L 20 114/60 97 03/28/18 08:24 03/28/18 08:24 03/28/18 08:24 03/28/18 09:59 03/28/18 08:24 Intake and Output: 03/28/18 03/28/18 06:59 18:59 Intake Total 100 Balance 100 - Medications Medications: Current Medications Albuterol/Ipratropium (Duoneb 3 Mg/0.5 Mg (3 Ml) Ud) 3 ml IH RQ4 [facility] Last Admin: 03/28/18 08:03 Dose: 3 ml Amiodarone HCl (Cordarone) 200 mg PO DAILY [facility] Last Admin: 03/28/18 09:59 Dose: 200 mg Aspirin (Aspirin Chewable) 81 mg PO DAILY [facility] Last Admin: 03/28/18 10:00 Dose: 81 mg Calcium Carbonate (Oscal) 500 mg PO BID [facility] Last Admin: 03/28/18 10:00 Dose: 500 mg Carvedilol (Coreg) 25 mg PO BID [facility] Last Admin: 03/28/18 09:59 Dose: 25 mg Clonidine HCl (Catapres) 0.2 mg PO Q8 [facility] Last Admin: 03/28/18 05:14 Dose: 0.2 mg Dextrose (Dextrose 50% Inj) 0 ml IV STAT PRN; Protocol PRN Reason: Hypoglycemia Protocol Dextrose (Glutose 15) 0 gm PO ONCE PRN; Protocol PRN Reason: Hypoglycemia Protocol Diphenhydramine HCl (Benadryl) 25 mg PO Q6 PRN PRN Reason: Itching / Pruritus Last Admin: 03/28/18 10:15 Dose: 25 mg Docusate Sodium (Colace) 100 mg PO BID PRN PRN Reason: Constipation Last Admin: 03/27/18 18:57 Dose: 100 mg Ergocalciferol (Drisdol 50,000 Intl Units Cap) 1 cap PO Q7D [facility] Glucagon (Glucagen Diagnostic Kit) 0 mg IM STAT PRN; Protocol PRN Reason: Hypoglycemia Protocol Heparin Sodium (Porcine) (Heparin) 5,000 units SC Q12 [facility] Last Admin: 03/28/18 10:00 Dose: 5,000 units Heparin Sodium (Porcine) (Heparin) 3,700 units IVP TTS [facility] Last Admin: 03/27/18 16:35 Dose: 3,700 units Hydromorphone HCl (Dilaudid) 2 mg PO Q6H PRN PRN Reason: Pain, severe (8-10) Last Admin: 03/28/18 10:12 Dose: 2 mg Dextrose (Dextrose 5% In Water 1000 Ml) 1,000 mls @ 0 mls/hr IV .Q0M PRN; Protocol; Per Protocol PRN Reason: Hypoglycemia Protocol Insulin Aspart (Novolog) 0 unit SC ACHS [facility] PRN Reason: Protocol Last Admin: 03/28/18 08:14 Dose: 4 unit Insulin Glargine (Lantus) 10 unit SC [facility] Last Admin: 03/27/18 22:34 Dose: 10 units Isosorbide Mononitrate (Imdur) 60 mg PO DAILY [facility] Last Admin: 03/28/18 09:59 Dose: 60 mg Levetiracetam (Keppra) 500 mg PO BID [facility] Last Admin: 03/28/18 09:59 Dose: 500 mg Montelukast Sodium (Singulair) 10 mg PO DAILY [facility] Last Admin: 03/28/18 09:59 Dose: 10 mg Pantoprazole Sodium (Protonix Ec Tab) 20 mg PO DAILY [facility] Last Admin: 03/28/18 10:00 Dose: 20 mg Ranolazine (Ranexa) 500 mg PO BID [facility] Last Admin: 03/28/18 10:00 Dose: 500 mg Rosuvastatin Calcium (Crestor) 10 mg PO HS [facility] Last Admin: 03/27/18 22:33 Dose: 10 mg Sertraline HCl (Zoloft) 50 mg PO DAILY [facility] Last Admin: 03/28/18 09:59 Dose: 50 mg Valproate Sodium (Depakene Cap) 250 mg PO QID [facility] Last Admin: 03/28/18 10:01 Dose: 250 mg Vitamin B Complex/Vit C/Folic Acid (Nephro-Courtney) 1 tab PO 0800 [facility] Last Admin: 03/28/18 08:15 Dose: 1 tab - Labs Labs: 03/28/18 08:26 03/28/18 08:26 - Constitutional Appears: Non-toxic - Head Exam Head Exam: NORMAL INSPECTION - Eye Exam Eye Exam: Conjunctival injection - ENT Exam ENT Exam: Mucous Membranes Moist - Neck Exam Neck Exam: Full ROM - Respiratory Exam Respiratory Exam: Decreased Breath Sounds - Cardiovascular Exam Cardiovascular Exam: REGULAR RHYTHM - GI/Abdominal Exam GI & Abdominal Exam: Tenderness, Normal Bowel Sounds - Rectal Exam Rectal Exam: Deferred - Exam Exam: NORMAL INSPECTION - Extremities Exam Extremities Exam: Normal Capillary Refill - Back Exam Back Exam: CVA tenderness (L) - Neurological Exam Neurological Exam: Alert, Oriented x3 - Psychiatric Exam Psychiatric exam: Normal Affect - Skin Skin Exam: Pallor Assessment and Plan - Assessment and Plan (Free Text) Assessment: chest pain abd pain constipation dmid improving esrf on dialysis Plan: as per orders
--- NOTE | 2018-03-28 12:36 | CP.PCM.PN ---
Subjective - Date & Time of Evaluation Date of Evaluation: 03/28/18 Time of Evaluation: 12:35 - Subjective Subjective: Nephrology Consultation Note: Assessment:stable SOB, HTN urgency chronic chest pain, A flutter Diabetic chronic Kidney Disease (E11.22) Hypertensive Chronic Kidney Disease (I12.0) End stage renal disease (N18.6) dependence on hemodialysis (Z99.2) (TTS) via AVF Anemia (D64.9), Hyperphosphatemia (E83.39), Secondary Hyperparathyroidism (E21.1 ), HTN (I12.0) CAD s/p CABG, diastolic CHF, parox A flutter/fib, intra-cardiac thrombus, hx of Heparin induced thrombocytopenia, hx of seizure, blindness Plan: plan for dialysis tomorrow as per TTS. Continue with Nephrovite 1 tab/day. last Hb 9.3, hence ordered HANNAH with HD Continue with phos binders home dose BP control with meds as ordered. Glycemic control, Dialysis consistent diet Further work up/management as per primary team Dose meds/antibiotics for ESRD status. Avoid fleets enema/magnesium based laxatives. cardiology following Thanks for allowing me to participate in care of your patient. Will follow patient with you. Please call if any Qs. had d/w team Dr Eric Temple Office: [phone] CC; Chest pain and SOB reason for consult: ESRD HPI: Pt is a 37 y/o transgender with hx of ESRD on hemodialysis (TTS) via permacath, chronic anemia, hyperphosphatemia, secondary hyperparathyroidism, Diabetes Mellitus, hypertension, CAD s/p CABG, diastolic CHF, pA flutter/fib, intra-cardiac thrombus, Heparin induced thrombocytopenia in past presented with complaints of SOB and chronic chest pain, denies palpitation, c/o chronic shortness of breath but better ROS: All other negative except as in HPI. now better improved SOB/chronic chest pain, no GI symptoms Physical Examination: General Appearance: in no acute respiratory distress, co-operative . Vitals reviewed and noted as below Head; Atraumatic, normocephalic ENT: no ulcers no thrush. Tongue is midline. Oropharynx: no rash or ulcers. EYES: Pt is blind both eyes Neck; supple no lymphadenopathy, no thyromegaly or bruit Lungs: Normal respiratory rate/effort. Breath sounds bilateral equal clear Heart: Normal rate. s1s2 normal. No rub or gallop. Extremities: no edema. No varicose veins. has b/l BKA. Neurological: Patient is awake follow commands no focal deficit Skin: Warm and dry. Normal turgor. No rash. Palpitation: Normal elasticity for age Abdomen: Abdomen is soft. Bowel sounds +. There is no abdominal tenderness, no guarding/rigidity or organomegaly Psych: limited insight and has normal affect/mood MSK: no joint tenderness or swelling. Digits and nails normal, no deformity : kidney or bladder not palpable Access: permacath Labs/imaging reviewed. Past medical history, past surgical history, family history, social history, allergy reviewed and noted as below Family Hx: no hx of CKD. Non contributory Objective - Vital Signs/Intake and Output Vital Signs (last 24 hours): Temp Pulse Resp BP Pulse Ox 97.8 F 61 20 114/60 97 03/28/18 08:24 03/28/18 11:58 03/28/18 08:24 03/28/18 09:59 03/28/18 08:24 Intake and Output: 03/28/18 03/28/18 06:59 18:59 Intake Total 100 Balance 100 - Medications Medications: Current Medications Albuterol/Ipratropium (Duoneb 3 Mg/0.5 Mg (3 Ml) Ud) 3 ml IH RQ4 [facility] Last Admin: 03/28/18 08:03 Dose: 3 ml Amiodarone HCl (Cordarone) 200 mg PO DAILY [facility] Last Admin: 03/28/18 09:59 Dose: 200 mg Aspirin (Aspirin Chewable) 81 mg PO DAILY [facility] Last Admin: 03/28/18 10:00 Dose: 81 mg Calcium Carbonate (Oscal) 500 mg PO BID [facility] Last Admin: 03/28/18 10:00 Dose: 500 mg Carvedilol (Coreg) 25 mg PO BID [facility] Last Admin: 03/28/18 09:59 Dose: 25 mg Clonidine HCl (Catapres) 0.2 mg PO Q8 [facility] Last Admin: 03/28/18 05:14 Dose: 0.2 mg Dextrose (Dextrose 50% Inj) 0 ml IV STAT PRN; Protocol PRN Reason: Hypoglycemia Protocol Dextrose (Glutose 15) 0 gm PO ONCE PRN; Protocol PRN Reason: Hypoglycemia Protocol Diphenhydramine HCl (Benadryl) 25 mg PO Q6 PRN PRN Reason: Itching / Pruritus Last Admin: 03/28/18 10:15 Dose: 25 mg Docusate Sodium (Colace) 100 mg PO BID PRN PRN Reason: Constipation Last Admin: 03/27/18 18:57 Dose: 100 mg Epoetin Tom (Procrit) 4,000 unit IV TTS [facility] Ergocalciferol (Drisdol 50,000 Intl Units Cap) 1 cap PO Q7D [facility] Glucagon (Glucagen Diagnostic Kit) 0 mg IM STAT PRN; Protocol PRN Reason: Hypoglycemia Protocol Heparin Sodium (Porcine) (Heparin) 5,000 units SC Q12 [facility] Last Admin: 03/28/18 10:00 Dose: 5,000 units Heparin Sodium (Porcine) (Heparin) 3,700 units IVP TTS [facility] Last Admin: 03/27/18 16:35 Dose: 3,700 units Hydromorphone HCl (Dilaudid) 2 mg PO Q6H PRN PRN Reason: Pain, severe (8-10) Last Admin: 03/28/18 10:12 Dose: 2 mg Dextrose (Dextrose 5% In Water 1000 Ml) 1,000 mls @ 0 mls/hr IV .Q0M PRN; Protocol; Per Protocol PRN Reason: Hypoglycemia Protocol Insulin Aspart (Novolog) 0 unit SC ACHS [facility] PRN Reason: Protocol Last Admin: 03/28/18 11:46 Dose: 2 unit Insulin Glargine (Lantus) 10 unit SC HS [facility] Last Admin: 03/27/18 22:34 Dose: 10 units Isosorbide Mononitrate (Imdur) 60 mg PO DAILY [facility] Last Admin: 03/28/18 09:59 Dose: 60 mg Levetiracetam (Keppra) 500 mg PO BID [facility] Last Admin: 03/28/18 09:59 Dose: 500 mg Montelukast Sodium (Singulair) 10 mg PO DAILY [facility] Last Admin: 03/28/18 09:59 Dose: 10 mg Pantoprazole Sodium (Protonix Ec Tab) 20 mg PO DAILY [facility] Last Admin: 03/28/18 10:00 Dose: 20 mg Ranolazine (Ranexa) 500 mg PO BID [facility] Last Admin: 03/28/18 10:00 Dose: 500 mg Rosuvastatin Calcium (Crestor) 10 mg PO HS [facility] Last Admin: 03/27/18 22:33 Dose: 10 mg Sertraline HCl (Zoloft) 50 mg PO DAILY [facility] Last Admin: 03/28/18 09:59 Dose: 50 mg Valproate Sodium (Depakene Cap) 250 mg PO QID [facility] Last Admin: 03/28/18 10:01 Dose: 250 mg Vitamin B Complex/Vit C/Folic Acid (Nephro-Courtney) 1 tab PO 0800 [facility] Last Admin: 03/28/18 08:15 Dose: 1 tab - Labs Labs: 03/28/18 08:26 03/28/18 08:26
--- NOTE | 2018-03-28 12:36 | CARD ---
APPROVED REPORT Date of service: 03/27/2018 EKG Measurement Heart [id number] <Conclusion> Normal sinus rhythm Left ventricular hypertrophy with repolarization abnormality Possible Inferior infarct, age undetermined Abnormal ECG
[2018-03-28] MEDS: (Lantus) Insulin Glargine, Recombinant SC SCH (21:43)
[2018-03-29 00:35] VITALS: O2SAT 100
[2018-03-29] MEDS: Albuterol-Ipratrop 3 mg / 0.5 (3 ml) UD IH SCH ×5 (00:40→16:28)
[2018-03-29] MEDS ORDERED: DiphenhydrAMINE 50 mg/ml Inj IVP STA (01:43)
[2018-03-29] MEDS: (Novolog) Insulin Aspart, Recombinant 100 u/ml 10 ml vial SC SCH ×3 (07:30→16:29)
[2018-03-29] MEDS: Multivitamin Vitamin B Complex (Nephro-Vite) Tab PO SCH (08:51)
[2018-03-29] MEDS ORDERED: EPOETIN ALFA 4,000 UNIT/ML ML Dialysis IV SCH (10:00)
[2018-03-29 10:06] LABS: BASO # 0.1 K/uL (0.0-0.2); BASO % 0.7 % (0.0-2.0); EOS # 0.3 K/uL (0.0-0.7); EOS % 3.8 % (0.0-4.0); HEMOGLOBIN 8.4 g/dL (12.0-18.0); LYMPH # 1.5 K/uL (1.0-4.3); LYMPH % 18.7 % (20.0-40.0); MEAN CELL VOLUME 89.6 fL (80.0-94.0); MEAN CORPUSCULAR HEMOGLOBIN 28.8 pg (27.0-31.0); MEAN CORPUSCULAR HGB CONC 32.1 g/dL (33.0-37.0); MEAN PLATELET VOLUME 9.3 fL (7.2-11.7); MONO # 0.4 K/uL (0.0-0.8); MONO % 5.7 % (0.0-10.0); NEUT # 5.6 K/uL (1.8-7.0); NEUT % 71.1 % (50.0-75.0); RBC 2.92 Mil/uL (4.40-5.90); RED CELL DISTRIBUTION WIDTH 19.4 % (11.5-14.5); WHITE BLOOD COUNT 7.9 K/uL (4.8-10.8)
[2018-03-29] MEDS: Pantoprazole 20 mg EC Tab PO SCH (10:20)
[2018-03-29] MEDS: Ranolazine 500 mg Extended Release Tablets PO SCH ×2 (10:20→17:36)
[2018-03-29 10:56] LABS: ALB/GLOB RATIO 1.2 (1.0-2.1); ALBUMIN 3.2 g/dL (3.5-5.0); CALCIUM 8.5 mg/dl (8.6-10.4)
--- NOTE | 2018-03-29 14:41 | CP.PCM.PN ---
Subjective - Date & Time of Evaluation Date of Evaluation: 03/29/18 Time of Evaluation: 14:39 - Subjective Subjective: feels beter no chest pain breathing beter finished dialysis today bs improved will go home today Objective - Vital Signs/Intake and Output Vital Signs (last 24 hours): Temp Pulse Resp BP Pulse Ox 98.7 F 58 L 18 137/80 100 03/29/18 14:15 03/29/18 14:15 03/29/18 14:15 03/29/18 14:15 03/29/18 13:00 Intake and Output: 03/29/18 03/29/18 06:59 18:59 Intake Total 120 Balance 120 - Medications Medications: Current Medications Albuterol/Ipratropium (Duoneb 3 Mg/0.5 Mg (3 Ml) Ud) 3 ml IH RQ4 [facility] Last Admin: 03/29/18 11:40 Dose: Not Given Amiodarone HCl (Cordarone) 200 mg PO DAILY [facility] Last Admin: 03/29/18 10:19 Dose: Not Given Aspirin (Aspirin Chewable) 81 mg PO DAILY [facility] Last Admin: 03/29/18 10:18 Dose: Not Given Calcium Carbonate (Oscal) 500 mg PO BID [facility] Last Admin: 03/29/18 10:20 Dose: Not Given Carvedilol (Coreg) 25 mg PO BID [facility] Last Admin: 03/29/18 10:19 Dose: Not Given Clonidine HCl (Catapres) 0.2 mg PO Q8 [facility] Last Admin: 03/29/18 14:26 Dose: Not Given Dextrose (Dextrose 50% Inj) 0 ml IV STAT PRN; Protocol PRN Reason: Hypoglycemia Protocol Dextrose (Glutose 15) 0 gm PO ONCE PRN; Protocol PRN Reason: Hypoglycemia Protocol Diphenhydramine HCl (Benadryl) 25 mg PO Q6 PRN PRN Reason: Itching / Pruritus Last Admin: 03/28/18 10:15 Dose: 25 mg Docusate Sodium (Colace) 100 mg PO BID PRN PRN Reason: Constipation Last Admin: 03/27/18 18:57 Dose: 100 mg Epoetin Tom (Procrit) 4,000 unit IV TTS [facility] Last Admin: 03/29/18 10:26 Dose: 4,000 unit Ergocalciferol (Drisdol 50,000 Intl Units Cap) 1 cap PO Q7D [facility] Glucagon (Glucagen Diagnostic Kit) 0 mg IM STAT PRN; Protocol PRN Reason: Hypoglycemia Protocol Heparin Sodium (Porcine) (Heparin) 5,000 units SC Q12 [facility] Last Admin: 03/29/18 10:19 Dose: Not Given Heparin Sodium (Porcine) (Heparin) 3,700 units IVP TTS [facility] Last Admin: 03/29/18 10:26 Dose: 3,700 units Hydromorphone HCl (Dilaudid) 2 mg PO Q6H PRN PRN Reason: Pain, severe (8-10) Last Admin: 03/29/18 02:00 Dose: 2 mg Dextrose (Dextrose 5% In Water 1000 Ml) 1,000 mls @ 0 mls/hr IV .Q0M PRN; Protocol; Per Protocol PRN Reason: Hypoglycemia Protocol Insulin Aspart (Novolog) 0 unit SC ACHS [facility] PRN Reason: Protocol Last Admin: 03/29/18 14:10 Dose: Not Given Insulin Glargine (Lantus) 10 unit SC [facility] Last Admin: 03/28/18 21:43 Dose: 10 units Isosorbide Mononitrate (Imdur) 60 mg PO DAILY [facility] Last Admin: 03/29/18 10:19 Dose: Not Given Levetiracetam (Keppra) 500 mg PO BID [facility] Last Admin: 03/29/18 10:20 Dose: Not Given Montelukast Sodium (Singulair) 10 mg PO DAILY [facility] Last Admin: 03/29/18 10:20 Dose: Not Given Pantoprazole Sodium (Protonix Ec Tab) 20 mg PO DAILY [facility] Last Admin: 03/29/18 10:20 Dose: Not Given Ranolazine (Ranexa) 500 mg PO BID [facility] Last Admin: 03/29/18 10:20 Dose: Not Given Rosuvastatin Calcium (Crestor) 10 mg PO HS [facility] Last Admin: 03/28/18 21:42 Dose: 10 mg Sertraline HCl (Zoloft) 50 mg PO DAILY [facility] Last Admin: 03/29/18 10:21 Dose: Not Given Valproate Sodium (Depakene Cap) 250 mg PO QID [facility] Last Admin: 03/29/18 14:23 Dose: 250 mg Vitamin B Complex/Vit C/Folic Acid (Nephro-Courtney) 1 tab PO 0800 [facility] Last Admin: 03/29/18 08:51 Dose: 1 tab - Labs Labs: 03/29/18 09:57 03/29/18 09:57 - Constitutional Appears: Non-toxic - Head Exam Head Exam: NORMAL INSPECTION - Eye Exam Eye Exam: Conjunctival injection - ENT Exam ENT Exam: Mucous Membranes Moist - Neck Exam Neck Exam: Full ROM - Respiratory Exam Respiratory Exam: NORMAL BREATHING PATTERN - Cardiovascular Exam Cardiovascular Exam: REGULAR RHYTHM - Rectal Exam Rectal Exam: NORMAL INSPECTION - Exam Additional comments: klinfiler ambiguas genitalia - Extremities Exam Additional comments: bilateral amputation - Back Exam Back Exam: NORMAL INSPECTION - Psychiatric Exam Psychiatric exam: Normal Affect - Skin Skin Exam: Pallor Assessment and Plan - Assessment and Plan (Free Text) Assessment: s/p chest pain cad s/p uncontroled dmid improved ESRF ANEAMIA COPD CHF Plan: D/C HOME [facility]
--- NOTE | 2018-03-29 15:23 | CP.PCM.PN ---
Subjective - Date & Time of Evaluation Date of Evaluation: 03/29/18 Time of Evaluation: 15:22 - Subjective Subjective: PT SEEN BY DR. BELL AND CLEARED FOR D/C HOME TODAY AFTER HD. SW TO [facility] TRANSPORTATION HOME. NO NEW RX. PT TO F/U WITH RENAL MD AND DR. BELL. SEE BELOW FOR FURTHER D/C INFORMATION. NO FURTHER ORDERS. -FOLLOW UP WITH DR. BELL IN THE OFFICE WITHIN 5-7 DAYS--CALL FOR APPT. -CONTINUE YOUR DIALYSIS USUAL---DON'T SKIP ANY DAYS!! -FOLLOW UP WITH YOUR KIDNEY DOCTOR IN THE OFFICE WITHIN 5-7 DAYS--CALL FOR APPT. -CONTINUE HOME MEDICATIONS USUAL. -NO NEW PRESCRIPTIONS. -FOR FURTHER CONCERNS OR QUESTIONS, CONTACT DR. BELL'S OFFICE. Objective - Vital Signs/Intake and Output Vital Signs (last 24 hours): Temp Pulse Resp BP Pulse Ox 98.7 F 58 L 18 137/80 100 03/29/18 14:15 03/29/18 14:15 03/29/18 14:15 03/29/18 14:15 03/29/18 13:00 Intake and Output: 03/29/18 03/29/18 06:59 18:59 Intake Total 120 Balance 120 - Medications Medications: Current Medications Albuterol/Ipratropium (Duoneb 3 Mg/0.5 Mg (3 Ml) Ud) 3 ml IH RQ4 [facility] Last Admin: 03/29/18 11:40 Dose: Not Given Amiodarone HCl (Cordarone) 200 mg PO DAILY [facility] Last Admin: 03/29/18 10:19 Dose: Not Given Aspirin (Aspirin Chewable) 81 mg PO DAILY [facility] Last Admin: 03/29/18 10:18 Dose: Not Given Calcium Carbonate (Oscal) 500 mg PO BID [facility] Last Admin: 03/29/18 10:20 Dose: Not Given Carvedilol (Coreg) 25 mg PO BID [facility] Last Admin: 03/29/18 10:19 Dose: Not Given Clonidine HCl (Catapres) 0.2 mg PO Q8 [facility] Last Admin: 03/29/18 14:26 Dose: Not Given Dextrose (Dextrose 50% Inj) 0 ml IV STAT PRN; Protocol PRN Reason: Hypoglycemia Protocol Dextrose (Glutose 15) 0 gm PO ONCE PRN; Protocol PRN Reason: Hypoglycemia Protocol Diphenhydramine HCl (Benadryl) 25 mg PO Q6 PRN PRN Reason: Itching / Pruritus Last Admin: 03/28/18 10:15 Dose: 25 mg Docusate Sodium (Colace) 100 mg PO BID PRN PRN Reason: Constipation Last Admin: 03/27/18 18:57 Dose: 100 mg Epoetin Tom (Procrit) 4,000 unit IV TTS [facility] Last Admin: 03/29/18 10:26 Dose: 4,000 unit Ergocalciferol (Drisdol 50,000 Intl Units Cap) 1 cap PO Q7D [facility] Glucagon (Glucagen Diagnostic Kit) 0 mg IM STAT PRN; Protocol PRN Reason: Hypoglycemia Protocol Heparin Sodium (Porcine) (Heparin) 5,000 units SC Q12 [facility] Last Admin: 03/29/18 10:19 Dose: Not Given Heparin Sodium (Porcine) (Heparin) 3,700 units IVP TTS [facility] Last Admin: 03/29/18 10:26 Dose: 3,700 units Hydromorphone HCl (Dilaudid) 2 mg PO Q6H PRN PRN Reason: Pain, severe (8-10) Last Admin: 03/29/18 14:56 Dose: 2 mg Dextrose (Dextrose 5% In Water 1000 Ml) 1,000 mls @ 0 mls/hr IV .Q0M PRN; Protocol; Per Protocol PRN Reason: Hypoglycemia Protocol Insulin Aspart (Novolog) 0 unit SC ACHS [facility] PRN Reason: Protocol Last Admin: 03/29/18 14:10 Dose: Not Given Insulin Glargine (Lantus) 10 unit SC [facility] Last Admin: 03/28/18 21:43 Dose: 10 units Isosorbide Mononitrate (Imdur) 60 mg PO DAILY [facility] Last Admin: 03/29/18 10:19 Dose: Not Given Levetiracetam (Keppra) 500 mg PO BID [facility] Last Admin: 03/29/18 10:20 Dose: Not Given Montelukast Sodium (Singulair) 10 mg PO DAILY [facility] Last Admin: 03/29/18 10:20 Dose: Not Given Pantoprazole Sodium (Protonix Ec Tab) 20 mg PO DAILY [facility] Last Admin: 03/29/18 10:20 Dose: Not Given Ranolazine (Ranexa) 500 mg PO BID [facility] Last Admin: 03/29/18 10:20 Dose: Not Given Rosuvastatin Calcium (Crestor) 10 mg PO HS [facility] Last Admin: 03/28/18 21:42 Dose: 10 mg Sertraline HCl (Zoloft) 50 mg PO DAILY [facility] Last Admin: 03/29/18 10:21 Dose: Not Given Valproate Sodium (Depakene Cap) 250 mg PO QID [facility] Last Admin: 03/29/18 14:23 Dose: 250 mg Vitamin B Complex/Vit C/Folic Acid (Nephro-Courtney) 1 tab PO 0800 [facility] Last Admin: 03/29/18 08:51 Dose: 1 tab - Labs Labs: 03/29/18 09:57 03/29/18 09:57
[2018-03-29 15:53] VITALS: RESP 20; TEMP 98
--- NOTE | 2018-03-29 16:10 | CP.PCM.PN ---
Subjective - Date & Time of Evaluation Date of Evaluation: 03/29/18 Time of Evaluation: 16:08 - Subjective Subjective: Nephrology Consultation Note: Assessment:stable SOB, HTN urgency chronic chest pain, A flutter Diabetic chronic Kidney Disease (E11.22) Hypertensive Chronic Kidney Disease (I12.0) End stage renal disease (N18.6) dependence on hemodialysis (Z99.2) (TTS) via AVF Anemia (D64.9), Hyperphosphatemia (E83.39), Secondary Hyperparathyroidism (E21.1 ), HTN (I12.0) CAD s/p CABG, diastolic CHF, parox A flutter/fib, intra-cardiac thrombus, hx of Heparin induced thrombocytopenia, hx of seizure, blindness Plan: plan for dialysis today as per TTS. Continue with Nephrovite 1 tab/day. last Hb 9.3, hence ordered HANNAH with HD Continue with phos binders home dose BP control with meds as ordered. Glycemic control, Dialysis consistent diet Further work up/management as per primary team Dose meds/antibiotics for ESRD status. Avoid fleets enema/magnesium based laxatives. cardiology following pt stable for d/c from renal perspective Thanks for allowing me to participate in care of your patient. Will follow patient with you. Please call if any Qs. had d/w team Dr Eric Temple Office: [phone] CC; Chest pain and SOB reason for consult: ESRD HPI: Pt is a 37 y/o transgender with hx of ESRD on hemodialysis (TTS) via permacath, chronic anemia, hyperphosphatemia, secondary hyperparathyroidism, Diabetes Mellitus, hypertension, CAD s/p CABG, diastolic CHF, pA flutter/fib, intra-cardiac thrombus, Heparin induced thrombocytopenia in past presented with complaints of SOB and chronic chest pain, denies palpitation, c/o chronic shortness of breath but better ROS: All other negative except as in HPI. now better improved SOB/chronic chest pain, no GI symptoms Physical Examination: General Appearance: in no acute respiratory distress, co-operative . Vitals reviewed and noted as below Head; Atraumatic, normocephalic ENT: no ulcers no thrush. Tongue is midline. Oropharynx: no rash or ulcers. EYES: Pt is blind both eyes Neck; supple no lymphadenopathy, no thyromegaly or bruit Lungs: Normal respiratory rate/effort. Breath sounds bilateral equal clear Heart: Normal rate. s1s2 normal. No rub or gallop. Extremities: no edema. No varicose veins. has b/l BKA. Neurological: Patient is awake follow commands no focal deficit Skin: Warm and dry. Normal turgor. No rash. Palpitation: Normal elasticity for age Abdomen: Abdomen is soft. Bowel sounds +. There is no abdominal tenderness, no guarding/rigidity or organomegaly Psych: limited insight and has normal affect/mood MSK: no joint tenderness or swelling. Digits and nails normal, no deformity : kidney or bladder not palpable Access: permacath Labs/imaging reviewed. Past medical history, past surgical history, family history, social history, allergy reviewed and noted as below Family Hx: no hx of CKD. Non contributory Objective - Vital Signs/Intake and Output Vital Signs (last 24 hours): Temp Pulse Resp BP Pulse Ox 98.0 F 60 20 156/75 H 100 03/29/18 15:00 03/29/18 15:00 03/29/18 15:00 03/29/18 15:00 03/29/18 15:00 Intake and Output: 03/29/18 03/29/18 06:59 18:59 Intake Total 120 Balance 120 - Medications Medications: Current Medications Albuterol/Ipratropium (Duoneb 3 Mg/0.5 Mg (3 Ml) Ud) 3 ml IH RQ4 [facility] Last Admin: 03/29/18 11:40 Dose: Not Given Amiodarone HCl (Cordarone) 200 mg PO DAILY [facility] Last Admin: 03/29/18 10:19 Dose: Not Given Aspirin (Aspirin Chewable) 81 mg PO DAILY [facility] Last Admin: 03/29/18 10:18 Dose: Not Given Calcium Carbonate (Oscal) 500 mg PO BID [facility] Last Admin: 03/29/18 10:20 Dose: Not Given Carvedilol (Coreg) 25 mg PO BID [facility] Last Admin: 03/29/18 10:19 Dose: Not Given Clonidine HCl (Catapres) 0.2 mg PO Q8 [facility] Last Admin: 03/29/18 14:26 Dose: Not Given Dextrose (Dextrose 50% Inj) 0 ml IV STAT PRN; Protocol PRN Reason: Hypoglycemia Protocol Dextrose (Glutose 15) 0 gm PO ONCE PRN; Protocol PRN Reason: Hypoglycemia Protocol Diphenhydramine HCl (Benadryl) 25 mg PO Q6 PRN PRN Reason: Itching / Pruritus Last Admin: 03/28/18 10:15 Dose: 25 mg Docusate Sodium (Colace) 100 mg PO BID PRN PRN Reason: Constipation Last Admin: 03/27/18 18:57 Dose: 100 mg Epoetin Tom (Procrit) 4,000 unit IV TTS [facility] Last Admin: 03/29/18 10:26 Dose: 4,000 unit Ergocalciferol (Drisdol 50,000 Intl Units Cap) 1 cap PO Q7D [facility] Glucagon (Glucagen Diagnostic Kit) 0 mg IM STAT PRN; Protocol PRN Reason: Hypoglycemia Protocol Heparin Sodium (Porcine) (Heparin) 5,000 units SC Q12 [facility] Last Admin: 03/29/18 10:19 Dose: Not Given Heparin Sodium (Porcine) (Heparin) 3,700 units IVP TTS [facility] Last Admin: 03/29/18 10:26 Dose: 3,700 units Hydromorphone HCl (Dilaudid) 2 mg PO Q6H PRN PRN Reason: Pain, severe (8-10) Last Admin: 03/29/18 14:56 Dose: 2 mg Dextrose (Dextrose 5% In Water 1000 Ml) 1,000 mls @ 0 mls/hr IV .Q0M PRN; Protocol; Per Protocol PRN Reason: Hypoglycemia Protocol Insulin Aspart (Novolog) 0 unit SC ACHS [facility] PRN Reason: Protocol Last Admin: 03/29/18 14:10 Dose: Not Given Insulin Glargine (Lantus) 10 unit SC [facility] Last Admin: 03/28/18 21:43 Dose: 10 units Isosorbide Mononitrate (Imdur) 60 mg PO DAILY [facility] Last Admin: 03/29/18 10:19 Dose: Not Given Levetiracetam (Keppra) 500 mg PO BID [facility] Last Admin: 03/29/18 10:20 Dose: Not Given Montelukast Sodium (Singulair) 10 mg PO DAILY [facility] Last Admin: 03/29/18 10:20 Dose: Not Given Pantoprazole Sodium (Protonix Ec Tab) 20 mg PO DAILY [facility] Last Admin: 03/29/18 10:20 Dose: Not Given Ranolazine (Ranexa) 500 mg PO BID [facility] Last Admin: 03/29/18 10:20 Dose: Not Given Rosuvastatin Calcium (Crestor) 10 mg PO HS [facility] Last Admin: 03/28/18 21:42 Dose: 10 mg Sertraline HCl (Zoloft) 50 mg PO DAILY [facility] Last Admin: 03/29/18 10:21 Dose: Not Given Valproate Sodium (Depakene Cap) 250 mg PO QID [facility] Last Admin: 03/29/18 14:23 Dose: 250 mg Vitamin B Complex/Vit C/Folic Acid (Nephro-Courtney) 1 tab PO 0800 [facility] Last Admin: 03/29/18 08:51 Dose: 1 tab - Labs Labs: 03/29/18 09:57 03/29/18 09:57
[2018-03-29 17:37] VITALS: BP 144/74
[2018-03-29 17:38] VITALS: PULSE 64
--- NOTE | 2018-04-01 11:45 | DS ---
Copied To: Sybil Li MD Attending MD: Sybil Li MD HISTORY OF PRESENT ILLNESS: This is a 37-year-old male, Lyndon, came in to the emergency room for chest pain, shortness of breath, and cough. He also has renal failure, on dialysis. He has diabetes mellitus and his sugar was very high when he came in. His vital signs were okay with his blood pressure was 217/73. His white count was 11.4 and his sugar was 726. Apparently, he was not taking his insulin, so he was put in the admission and his sugar was monitored and was controlled. He was seen by Dr. Montenegro and Dr. Mateo virk for his dialysis. He was improving, and he feels no cough or chest pain anymore. Dr. Escobar also saw the patient. He has chronic coronary artery disease, but there were no new changes. His EKG is abnormal, but it is stable as compared to before. His last blood sugar was 152, and he was comfortable and ready to be discharged. He went home with all his medications and to follow up in the office. FINAL DIAGNOSES: Acute chest pain, coronary artery disease, severe hyperglycemia, diabetes mellitus, insulin dependent, the Klinefelter, chronic obstructive pulmonary disease, and congestive heart failure. Sybil Li MD
== END 2018-03-29 18:20 | disposition home or self-care (01) | DRG 544 ==
LOC: C.ER 16:08 → C.9E 17:46 → C.5S 20:21
PROVIDERS: ADMIT Internal Medicine; ATTEND Internal Medicine
PROC: 5A1D70Z Performance of Urinary Filtration, Intermittent, Less than 6 Hours Per Day (ICD-10-PCS; principal; 2018-03-27)
DX: I13.2 Hypertensive heart and chronic kidney disease with heart failure and with stage 5 chronic kidney disease, or end stage renal disease (principal); I50.33 Acute on chronic diastolic (congestive) heart failure; E11.65 Type 2 diabetes mellitus with hyperglycemia; J44.9 Chronic obstructive pulmonary disease, unspecified; N18.6 End stage renal disease; E11.22 Type 2 diabetes mellitus with diabetic chronic kidney disease; I25.119 Atherosclerotic heart disease of native coronary artery with unspecified angina pectoris; I16.0 Hypertensive urgency; I48.0 Paroxysmal atrial fibrillation; N25.81 Secondary hyperparathyroidism of renal origin; D63.1 Anemia in chronic kidney disease; E03.9 Hypothyroidism, unspecified; G30.9 Alzheimer's disease, unspecified; G89.29 Other chronic pain; F64.9 Gender identity disorder, unspecified; H54.8 Legal blindness, as defined in USA; Z79.4 Long term (current) use of insulin; Z86.73 Personal history of transient ischemic attack (TIA), and cerebral infarction without residual deficits; Z91.19 Patient's noncompliance with other medical treatment and regimen; Z95.1 Presence of aortocoronary bypass graft; Z95.5 Presence of coronary angioplasty implant and graft; Z99.2 Dependence on renal dialysis; Z87.01 Personal history of pneumonia (recurrent)

== ENCOUNTER 2018-04-06 16:06 | Inpatient (IN) | payer OTHER ==
[2018-04-06 16:06] VITALS: PULSE 66; BMI 18.8
[2018-04-06 17:10] LABS: BASO # 0.1 K/uL (0.0-0.2); EOS # 0.1 K/uL (0.0-0.7); EOS % 1.1 % (0.0-4.0); LYMPH # 3.6 K/uL (1.0-4.3); LYMPH % 28.4 % (20.0-40.0); MEAN CELL VOLUME 89.5 fL (80.0-94.0); MEAN CORPUSCULAR HEMOGLOBIN 28.2 pg (27.0-31.0); MEAN CORPUSCULAR HGB CONC 31.6 g/dL (33.0-37.0); MEAN PLATELET VOLUME 9.9 fL (7.2-11.7); MONO % 8.1 % (0.0-10.0); NEUT # 7.8 K/uL (1.8-7.0); NEUT % 61.4 % (50.0-75.0); RBC 4.21 Mil/uL (4.40-5.90); RED CELL DISTRIBUTION WIDTH 18.9 % (11.5-14.5)
--- NOTE | 2018-04-06 17:15 | C.PDOC ---
History Of Present Illness 37 year old male with a past medical history of ESRD, last dialysis yesterday, complains of a one-day history of chest pain with associated shortness of breath. Patient states he phoned his PMD with no call back to he presented to the ED. Time Seen by Provider: 04/06/18 16:13 Chief Complaint (Nursing): Chest Pain History Per: Patient History/Exam Limitations: no limitations Onset/Duration Of Symptoms: Hrs Current Symptoms Are (Timing): Still Present Quality: "Pain" Past Medical History Vital Signs: Last Vital Signs Temp 98.2 F 04/06/18 16:25 Pulse 107 H 04/06/18 17:13 Resp 16 04/06/18 17:13 BP 137/65 04/06/18 17:13 Pulse Ox 100 04/06/18 18:46 - Medical History PMH: Alzheimer's Disease, Anemia, Anxiety, Arthritis, Asthma, Atrial Fibrillation, Bronchitis, CAD, Cardia Arrhythmia, CHF, COPD, CVA, Depression, Diabetes, Deep Vein Thrombosis, Gastritis, Gastrointestinal Ulcer, Gall Bladder Disease, HTN, Hypercholesterolemia, Hypothyroidism, Pneumonia, End Stage Renal Disease, Chronic Kidney Disease, Seizures Denies: Hyperthyroidism, Kidney Stones, Sexually Transmitted Disease Surgical History: CABG (12/2009), Cholecystectomy (2011), Coronary Stent - [facility] (03/26/18) ABDOMINAL WALL SINOGRAM (12/31/13) C.A.T. SCAN OF ABDOMEN (10/31/13) CENTRAL VENOUS CATHETER PLACEMENT WITH GUIDANCE (02/10/15) CHANGE OTHER DEVICE IN TRUNK SUBCU/FASCIA, [place] BAND WRAPPER APPROACH (06/01/17) DILATE R ANT TIB ART W DRUG-ELUT INTRALUM, PERC (08/12/15) DILATION OF LEFT FEMORAL ARTERY, PERCUTANEOUS APPROACH (07/04/16) DILATION OF RIGHT FEMORAL ARTERY, PERCUTANEOUS APPROACH (08/12/15) DILATION OF RIGHT POPLITEAL ARTERY, PERCUTANEOUS APPROACH (08/12/15) DX ULTRASOUND-HEART (01/05/13) ENTERAL INFUSION OF CONCENTRATED NUT. SUBSTANCES (06/28/13) EXCIS DEBRIDE OF WOUND, INFECT, OR BURN (08/03/14) EXCISION OF STOMACH, ENDO, DIAGN (03/03/17) EXTIRPATION OF MATTER FROM L FEM ART, PERC APPROACH (07/04/16) EXTIRPATION OF MATTER FROM R FEM ART, PERC APPROACH (08/12/15) EXTIRPATION OF MATTER FROM R POPL ART, PERC APPROACH (08/12/15) FLUOROSCOPY OF L LOW EXTREM ART USING L OSM CONTRAST (08/12/15) FLUOROSCOPY OF R LOW EXTREM ART USING L OSM CONTRAST (08/12/15) FLUOROSCOPY OF RIGHT JUGULAR VEINS, GUIDANCE (06/01/17) FREE SKIN GRAFT NEC (08/03/14) HEAD SOFT TISS X-RAY NEC (04/15/13) HEMODIALYSIS (04/28/15) INCIS W REM OF FORIEGN BODY OR DEV FROM SKIN & SUBCUT TISSUE (08/08/13) INSERT INFUSION DEV IN R INT JUGULAR VEIN, PERC (06/01/17) INSERTION OF INFUSION DEV INTO R SUBCLAV VEIN, PERC APPROACH (01/19/16) INSERTION OF INFUSION DEV INTO SUP VENA CAVA, PERC APPROACH (01/07/18) INSPECTION OF UPPER INTESTINAL TRACT, ENDO (03/03/17) INTRODUCE OF OTH THROMBOLYTIC INTO PERIPH ART, PERC APPROACH (08/12/15) LAPAROSCOPIC CHOLECYSTECTOMY (09/21/13) LOC EXC LES METATAR/TAR (06/01/14) PACKED CELL TRANSFUSION (06/01/14) PERCUTAN LIVER ASPIRAT (12/31/13) PERFORMANCE OF URINARY FILTRATION, MULTIPLE (05/17/17) PERFORMANCE OF URINARY FILTRATION, SINGLE (12/18/16) SKIN & SUBQ INCISION NEC (10/24/14) TETANUS TOXOID ADMINIST (06/13/14) TRANSFUSE NONAUT RED BLOOD CELLS IN PERIPH VEIN, PERC (04/09/17) ULTRASONOGRAPHY OF RIGHT AND LEFT HEART (04/09/17) ULTRASONOGRAPHY OF SUPERIOR VENA CAVA, GUIDANCE (01/07/18) VENOUS CATHETERIZATION FOR RENAL DIALYSIS (08/08/13) VENOUS CATHETERIZATION NEC (04/30/13) Family History: States: No Known Family Hx - Social History Hx Tobacco Use: No Hx Alcohol Use: No Hx Substance Use: No - Immunization History Hx Tetanus Toxoid Vaccination: Yes Hx Influenza Vaccination: Yes Hx Pneumococcal Vaccination: Yes Review Of Systems Cardiovascular: Positive for: Chest Pain Respiratory: Positive for: Shortness of Breath Physical Exam - Physical Exam Appears: Non-toxic, No Acute Distress Skin: Warm, Dry Head: Atraumatic, Normacephalic Eye(s): bilateral: Normal Inspection Nose: Normal Neck: Normal, Supple Chest: Symmetrical, No Tenderness Cardiovascular: Rhythm Regular (irregular regular rhythm) Respiratory: Normal Breath Sounds, No Rales, No Rhonchi Gastrointestinal/Abdominal: Normal Exam, Soft, No Tenderness, No Guarding, No Rebound Extremity: Other (Bilateral BKA) Neurological/Psych: Oriented x3, Normal Speech, Normal Cognition ED Course And Treatment - Laboratory Results Result Diagrams: 04/06/18 17:07 04/06/18 17:07 ECG Rhythm: Atrial Flutter Rate From EC (BPM) O2 Sat by Pulse Oximetry: 100 (RA) Pulse Ox Interpretation: Normal Medical Decision Making Medical Decision Making: Plan: EKG BNP CMP Troponin CBC PTT Prothrombin Time Cardizem 15mg IVP Assessment: Atrial Flutter Spoke to Dr. Li who requested an ICU Consult. Spoke to Dr. Valle who will evaluate the patient. Re-Eval: After Cardizem, rate controlled to 104 yet morphology of EKG remains unchanged from previous ekg Assessment: Atrial Flutter, Hyperglycemia Critical care time 60 minutes. 1900 - case s/o to Dr. Foster pending icu consult. Disposition - Disposition Disposition Time: 19:00 Condition: FAIR Forms: Celly (Lao) - Clinical Impression Clinical Impression: Atrial flutter, Hyperglycemia - Scribe Statement The provider has reviewed the documentation as recorded by the Scribe (Ha Lane) Provider Attestation: All medical record entries made by the Scribe were at my direction and personally dictated by me. I have reviewed the chart and agree that the record accurately reflects my personal performance of the history, physical exam, medical decision making, and the department course for this patient. I have also personally directed, reviewed, and agree with the discharge instructions and disposition. Physician Patient Turnover Patient Signed Over To: Von Foster DO Handoff Comments: pending icu consult, disposition
[2018-04-06 17:16] LABS: HEMOGLOBIN 11.9 g/dL (12.0-18.0); WHITE BLOOD COUNT 12.7 K/uL (4.8-10.8)
[2018-04-06 17:21] LABS: INR 1.3; PROTHROMBIN TIME 13.8 SECONDS (9.7-12.2)
--- NOTE | 2018-04-06 17:33 | RAD ---
Date of service: 04/06/2018 PROCEDURE: CHEST RADIOGRAPH, 1 VIEW HISTORY: SOB COMPARISON: Portable chest 03/26/2018. FINDINGS: LUNGS: Clear. PLEURA: No pneumothorax or pleural fluid seen. CARDIOVASCULAR: Cardiomegaly limited pulmonary vascular congestion are identified. Under right central venous dialysis catheter is reiterated as well as sternotomy wires. OSSEOUS STRUCTURES: Sternotomy wires. VISUALIZED UPPER ABDOMEN: Surgical clips right upper quadrant abdomen again evident. OTHER FINDINGS: None. IMPRESSION: Mild pulmonary vascular congestion. Stable cardiomegaly. No acute airspace disease identified bilaterally.
[2018-04-06 17:44] LABS: ALB/GLOB RATIO 1.3 (1.0-2.1); ALBUMIN 4.3 g/dL (3.5-5.0); CALCIUM 10.2 mg/dl (8.6-10.4); TROPONIN I 0.632 ng/mL (0.00-0.120)
[2018-04-06] MEDS ORDERED: (Novolin R) Insulin Human Regular 100 units/ml vial IV ONE (17:44)
[2018-04-06] MEDS ORDERED: (Novolin R) Insulin Human Regular 100 units/ml vial ONE ×2 (18:00→21:32)
[2018-04-06] MEDS ORDERED: Verapamil 2 ML ONE (18:33)
[2018-04-06] MEDS ORDERED: DiphenhydrAMINE 50 mg/ml Inj IVP STA (18:41)
--- NOTE | 2018-04-06 19:58 | CP.PCM.CON ---
History of Present Illness - History of Present Illness History of Present Illness: 37 year old male with a past medical history of ESRD, last dialysis yesterday, CAD,HTN, Arrhythmia,CABG , Coronary Stent, CHF, COPD, Diabetes, Deep Vein Thrombosis, Hypercholesterolemia, Hypothyroidism, Seizures ,Bilateral BKA presents to ER with complains of a one-day history of chest pain with associated shortness of breath and palpitations.Denies chest pain,palpitations or difficulty breathing now. Initially in ER his HR was 140-150,at present HR 104-110 Bs was high >600,decreased to 400's Review of Systems - Constitutional Constitutional: absent: Anorexia, Chills - EENT Eyes: Loss of Vision, Other (Patient has bilateral ctarracts and vision loss) Nose/Mouth/Throat: absent: Nasal Congestion, Sore Throat - Cardiovascular Cardiovascular: Chest Pain, Dyspnea, Rapid Heart Rate - Respiratory Respiratory: absent: Cough - Gastrointestinal Gastrointestinal: absent: Abdominal Pain, Nausea, Vomiting - Genitourinary Additional comments: ESRD on HD - Musculoskeletal Musculoskeletal: absent: Neck Pain - Integumentary Integumentary: absent: Rash, Wounds - Neurological Neurological: absent: Dizziness, Focal Weakness Additional comments: bilateral BKA - Endocrine Endocrine: Palpitations. absent: Fatigue - Hematologic/Lymphatic Hematologic: absent: Easy Bleeding Past Patient History - Infectious Disease Hx of Infectious Diseases: None - Tetanus Immunizations Tetanus Immunization: >10 years Ago - Past Medical History & Family History Past Medical History?: Yes - Past Social History Smoking Status: Never Smoked Alcohol: None Drugs: Denies - CARDIAC Hx Atrial Fibrillation: Yes Hx Cardia Arrhythmia: Yes Hx Congestive Heart Failure: Yes Hx Hypercholesterolemia: Yes Hx Hypertension: Yes - PULMONARY Hx Asthma: Yes Hx Bronchitis: Yes Hx Chronic Obstructive Pulmonary Disease (COPD): Yes Hx Pneumonia: Yes - NEUROLOGICAL Hx Alzheimer's Disease: Yes Hx Seizures: Yes - HEENT Hx HEENT Problems: Yes Hx Blind: Yes (legally blind) Hx Cataracts: Yes - RENAL Hx Chronic Kidney Disease: Yes Hx Kidney Stones: No - ENDOCRINE/METABOLIC Hx Hyperthyroidism: No Hx Hypothyroidism: Yes - HEMATOLOGICAL/ONCOLOGICAL Hx Anemia: Yes - INTEGUMENTARY Hx Dermatological Problems: No - MUSCULOSKELETAL/RHEUMATOLOGICAL Hx Arthritis: Yes - GASTROINTESTINAL Hx Gall Bladder Disease: Yes Hx Gastritis: Yes - GENITOURINARY/GYNECOLOGICAL Hx Sexually Transmitted Disorders: No - PSYCHIATRIC Hx Anxiety: Yes Hx Depression: Yes Hx Substance Use: No - SURGICAL HISTORY Hx Cholecystectomy: Yes (2011) 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/2009) Hx Coronary Stent: Yes - ANESTHESIA Hx Anesthesia: Yes Hx Anesthesia Reactions: No Hx Malignant Hyperthermia: No Meds Allergies/Adverse Reactions: Allergies Allergy/AdvReac Type Severity Reaction Status Date / Time acetaminophen [From Percocet] Allergy RASH Verified 04/06/18 16:12 atenolol Allergy RASH Verified 04/06/18 16:12 digoxin Allergy RASH Verified 04/06/18 16:12 milk Allergy ITCHING Verified 04/06/18 16:12 morphine Allergy RASH Verified 04/06/18 16:12 oxycodone HCl [From Percocet] Allergy RASH Verified 04/06/18 16:12 Physical Exam - Constitutional Appears: No Acute Distress, Older Than Stated Age - Head Exam Head Exam: ATRAUMATIC, NORMAL INSPECTION, NORMOCEPHALIC - Eye Exam Eye Exam: EOMI. absent: Scleral icterus Additional comments: left eye corneal opacity - ENT Exam ENT Exam: Mucous Membranes Moist - Neck Exam Neck exam: Positive for: Full Rom, Normal Inspection - Respiratory Exam Respiratory Exam: Clear to Auscultation Bilateral, NORMAL BREATHING PATTERN - Cardiovascular Exam Cardiovascular Exam: Irregular Rhythm. absent: JVD - GI/Abdominal Exam GI & Abdominal Exam: Normal Bowel Sounds, Soft. absent: Tenderness (right upper chest HD catheter) - Extremities Exam Additional comments: bilateral BKA - Back Exam Back exam: NORMAL INSPECTION - Neurological Exam Neurological exam: Alert, Oriented x3 - Skin Skin Exam: Warm Results - Vital Signs Recent Vital Signs: Last Vital Signs Temp 97.6 F 04/06/18 19:18 Pulse 111 H 04/06/18 19:18 Resp 12 04/06/18 19:18 BP 114/51 L 04/06/18 19:18 Pulse Ox 100 04/06/18 19:18 - Labs Result Diagrams: 04/06/18 17:07 04/06/18 17:07 Labs: Laboratory Results - last 24 hr 04/06/18 04/06/18 04/06/18 17:07 17:07 17:07 WBC 12.7 H D RBC 4.21 L Hgb 11.9 L D Hct 37.6 MCV 89.5 MCH 28.2 MCHC 31.6 L RDW 18.9 H Plt Count 260 D MPV 9.9 Neut % (Auto) 61.4 Lymph % (Auto) 28.4 [place] % (Auto) 8.1 Eos % (Auto) 1.1 Baso % (Auto) 1.0 Neut # (Auto) 7.8 H Lymph # (Auto) 3.6 [place] # (Auto) 1.0 H Eos # (Auto) 0.1 Baso # (Auto) 0.1 PT 13.8 H INR 1.3 APTT 37 H Sodium 133 Potassium 4.1 Chloride 90 L Carbon Dioxide 23 Anion Gap 24 H BUN 36 H Creatinine 4.3 H Est GFR ( Amer) 19 Est GFR (Non-Af Amer) 16 Random Glucose 671 H* D Calcium 10.2 Total Bilirubin 0.6 AST 18 ALT 16 L Alkaline Phosphatase 237 H D Troponin I 0.6320 H* NT-Pro-B Natriuret Pep 94340 H Total Protein 7.7 Albumin 4.3 Globulin 3.4 Albumin/Globulin Ratio 1.3 - EKG Data EKG Interpreted by: Myself - Imaging and Cardiology Chest x-ray Status: Image reviewed by me, Report reviewed by me Assessment & Plan - Assessment and Plan (Free Text) Assessment: 1.Atrial flutter with rapid rate-rate improved in ER 2.CAD/HTN/abnormal EKG/elevated Troponin follow Cardiology recommendations 3.DM with elevated glucose BS improving Insulin 4.ESRD on HD last HD 04/05/18 Patient symptomatically improved with improved HR and sugar Will not admit to ICU at present time.
[2018-04-06] MEDS: HYDROmorphone 1 mg/ml ISec IVP PRN (21:02)
[2018-04-06] MEDS: (Novolin R) Insulin Human Regular 100 units/ml vial SC SCH (21:36)
[2018-04-06] MEDS: Insulin Detemir 100 units/ml Vial (Levemir) SC SCH (22:37)
[2018-04-07 00:18] LABS: CK-MB 3.93 ng/mL (0.0-3.38)
[2018-04-07 01:49] LABS: TROPONIN I 3.5 ng/mL (0.00-0.120)
[2018-04-07] MEDS: HYDROmorphone 1 mg/ml ISec IVP PRN ×4 (03:03→23:33)
[2018-04-07] MEDS: (Novolin R) Insulin Human Regular 100 units/ml vial SC SCH ×4 (07:00→22:58)
[2018-04-07] MEDS: Albuterol-Ipratrop 3 mg / 0.5 (3 ml) UD INH SCH ×4 (07:46→20:13)
[2018-04-07 08:14] LABS: CK-MB 4.05 ng/mL (0.0-3.38); TROPONIN I 3.93 ng/mL (0.00-0.120)
[2018-04-07] MEDS: Multivitamin Vitamin B Complex (Nephro-Vite) Tab PO SCH (09:12)
[2018-04-07] MEDS: Pantoprazole 20 mg EC Tab PO SCH (09:19)
[2018-04-07] MEDS: Ranolazine 500 mg Extended Release Tablets PO SCH ×2 (09:36→18:15)
[2018-04-07] MEDS: (Novolog) Insulin Aspart, Recombinant 100 u/ml 10 ml vial SC SCH (09:48)
--- NOTE | 2018-04-07 11:11 | CP.PCM.CON ---
History of Present Illness - History of Present Illness History of Present Illness: Nephrology Consultation Note: Assessment:stable SOB, chronic chest pain, A flutter Diabetic chronic Kidney Disease (E11.22) Hypertensive Chronic Kidney Disease (I12.0) End stage renal disease (N18.6) dependence on hemodialysis (Z99.2) (TTS) via AVF Anemia (D64.9), Hyperphosphatemia (E83.39), Secondary Hyperparathyroidism (E21.1 ), HTN (I12.0) CAD s/p CABG, diastolic CHF, parox A flutter/fib, intra-cardiac thrombus, hx of Heparin induced thrombocytopenia, hx of seizure, blindness Plan: plan for dialysis today extra session. Plan for next HD as per TTS. Continue with Nephrovite 1 tab/day. last Hb 11.9 hence no HANNAH with HD for now Continue with phos binders home dose BP control with meds as ordered. Glycemic control, Dialysis consistent diet Further work up/management as per primary team Dose meds/antibiotics for ESRD status. Avoid fleets enema/magnesium based laxatives. Thanks for allowing me to participate in care of your patient. Will follow patient with you. Please call if any Qs. Dr Eric Temple Office: [phone] CC; Chest pain and SOB reason for consult: ESRD HPI: Pt is a 37 y/o transgender with hx of ESRD on hemodialysis (TTS) via permacath, chronic anemia, hyperphosphatemia, secondary hyperparathyroidism, Diabetes Mellitus, hypertension, CAD s/p CABG, diastolic CHF, pA flutter/fib, intra-cardiac thrombus, Heparin induced thrombocytopenia in past presented with complaints of SOB and chronic chest pain, palpitation which is better, c/o chronic shortness of breath but better ROS: All other negative except as in HPI. now better improved chronic chest pain , no GI symptoms. c/o SOB today Physical Examination: General Appearance: in no acute respiratory distress, co-operative . Vitals reviewed and noted as below Head; Atraumatic, normocephalic ENT: no ulcers no thrush. Tongue is midline. Oropharynx: no rash or ulcers. EYES: Pt is blind both eyes Neck; supple no lymphadenopathy, no thyromegaly or bruit Lungs: Normal respiratory rate/effort. Breath sounds bilateral decreased at bases Heart: Normal rate. s1s2 normal. No rub or gallop. Extremities: no edema. No varicose veins. has b/l BKA. Neurological: Patient is awake follow commands no focal deficit Skin: Warm and dry. Normal turgor. No rash. Palpitation: Normal elasticity for age Abdomen: Abdomen is soft. Bowel sounds +. There is no abdominal tenderness, no guarding/rigidity or organomegaly Psych: limited insight and has normal affect/mood MSK: no joint tenderness or swelling. Digits and nails normal, no deformity : kidney or bladder not palpable Access: permacath Labs/imaging reviewed. Past medical history, past surgical history, family history, social history, allergy reviewed and noted as below Family Hx: no hx of CKD. Non contributory Past Patient History - Infectious Disease Hx of Infectious Diseases: None - Tetanus Immunizations Tetanus Immunization: >10 years Ago - Past Medical History & Family History Past Medical History?: Yes - Past Social History Smoking Status: Never Smoked - CARDIAC Hx Atrial Fibrillation: Yes Hx Cardia Arrhythmia: Yes Hx Congestive Heart Failure: Yes Hx Hypercholesterolemia: Yes Hx Hypertension: Yes - PULMONARY Hx Asthma: Yes Hx Bronchitis: Yes Hx Chronic Obstructive Pulmonary Disease (COPD): Yes Hx Pneumonia: Yes - NEUROLOGICAL Hx Alzheimer's Disease: Yes Hx Seizures: Yes - HEENT Hx HEENT Problems: Yes Hx Blind: Yes (legally blind) Hx Cataracts: Yes - RENAL Hx Chronic Kidney Disease: Yes Hx Kidney Stones: No - ENDOCRINE/METABOLIC Hx Hyperthyroidism: No Hx Hypothyroidism: Yes - HEMATOLOGICAL/ONCOLOGICAL Hx Anemia: Yes - INTEGUMENTARY Hx Dermatological Problems: No - MUSCULOSKELETAL/RHEUMATOLOGICAL Hx Arthritis: Yes Hx Falls: No - GASTROINTESTINAL Hx Gall Bladder Disease: Yes Hx Gastritis: Yes - GENITOURINARY/GYNECOLOGICAL Hx Sexually Transmitted Disorders: No - PSYCHIATRIC Hx Anxiety: Yes Hx Depression: Yes Hx Substance Use: No - SURGICAL HISTORY Hx Cholecystectomy: Yes (2011) 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/2009) Hx Coronary Stent: Yes - ANESTHESIA Hx Anesthesia: Yes Hx Anesthesia Reactions: No Hx Malignant Hyperthermia: No Meds Allergies/Adverse Reactions: Allergies Allergy/AdvReac Type Severity Reaction Status Date / Time acetaminophen [From Percocet] Allergy RASH Verified 04/06/18 16:12 atenolol Allergy RASH Verified 04/06/18 16:12 digoxin Allergy RASH Verified 04/06/18 16:12 milk Allergy ITCHING Verified 04/06/18 16:12 morphine Allergy RASH Verified 04/06/18 16:12 oxycodone HCl [From Percocet] Allergy RASH Verified 04/06/18 16:12 - Medications Medications: Current Medications Albuterol/Ipratropium (Duoneb 3 Mg/0.5 Mg (3 Ml) Ud) 3 ml INH RQ4 [facility] Last Admin: 04/07/18 07:46 Dose: Not Given Amiodarone HCl (Cordarone) 200 mg PO DAILY [facility] Last Admin: 04/07/18 09:36 Dose: 200 mg Amlodipine Besylate (Norvasc) 10 mg PO DAILY [facility] Aspirin (Aspirin) 325 mg PO DAILY [facility] Last Admin: 04/07/18 09:12 Dose: 325 mg Calcium Carbonate (Oscal) 500 mg PO BID [facility] Carvedilol (Coreg) 25 mg PO BID [facility] Last Admin: 04/07/18 09:13 Dose: 25 mg Docusate Sodium (Colace) 100 mg PO BID PRN PRN Reason: Constipation Ergocalciferol (Drisdol 50,000 Intl Units Cap) 1 cap PO Q7D [facility] Heparin Sodium (Porcine) (Heparin) 5,000 units SC Q12 [facility] Last Admin: 04/07/18 09:39 Dose: 5,000 units Hydromorphone HCl (Dilaudid) 1 mg IVP Q6H PRN PRN Reason: Pain, moderate (4-7) Last Admin: 04/07/18 09:37 Dose: 1 mg Insulin Aspart (Novolog) 10 unit SC DAILY [facility] Last Admin: 04/07/18 09:48 Dose: 10 units Insulin Detemir (Levemir) 20 unit SC HS [facility] Last Admin: 04/06/18 22:37 Dose: 20 units Insulin Human Regular (Novolin R) 0 unit SC ACHS [facility] PRN Reason: Protocol Last Admin: 04/07/18 07:00 Dose: Not Given Isosorbide Mononitrate (Imdur) 60 mg PO DAILY [facility] Last Admin: 04/07/18 09:36 Dose: 60 mg Lactulose (Enulose) 10 gm PO Q24H [facility] Levetiracetam (Keppra) 500 mg PO BID [facility] Last Admin: 04/07/18 09:13 Dose: 500 mg Montelukast Sodium (Singulair) 10 mg PO DAILY [facility] Last Admin: 04/07/18 09:13 Dose: 10 mg Pantoprazole Sodium (Protonix Ec Tab) 20 mg PO DAILY [facility] Last Admin: 04/07/18 09:19 Dose: 20 mg Ranolazine (Ranexa) 500 mg PO BID [facility] Last Admin: 04/07/18 09:36 Dose: 500 mg Rosuvastatin Calcium (Crestor) 10 mg PO HS [facility] Last Admin: 04/06/18 21:37 Dose: 10 mg Sertraline HCl (Zoloft) 50 mg PO DAILY [facility] Last Admin: 04/07/18 09:36 Dose: 50 mg Valproate Sodium (Depakene Cap) 250 mg PO QID [facility] Vitamin B Complex/Vit C/Folic Acid (Nephro-Courtney) 1 tab PO 0800 [facility] Last Admin: 04/07/18 09:12 Dose: 1 tab Results - Vital Signs Recent Vital Signs: Last Vital Signs Temp 97.3 F L 04/07/18 07:00 Pulse 57 L 04/07/18 07:00 Resp 18 04/07/18 07:00 BP 150/70 04/07/18 09:13 Pulse Ox 97 04/07/18 07:00 - Labs Result Diagrams: 04/06/18 17:07 04/06/18 17:07 Labs: Laboratory Results - last 24 hr 04/06/18 04/06/18 04/06/18 17:07 17:07 17:07 WBC 12.7 H D RBC 4.21 L Hgb 11.9 L D Hct 37.6 MCV 89.5 MCH 28.2 MCHC 31.6 L RDW 18.9 H Plt Count 260 D MPV 9.9 Neut % (Auto) 61.4 Lymph % (Auto) 28.4 [place] % (Auto) 8.1 Eos % (Auto) 1.1 Baso % (Auto) 1.0 Neut # (Auto) 7.8 H Lymph # (Auto) 3.6 [place] # (Auto) 1.0 H Eos # (Auto) 0.1 Baso # (Auto) 0.1 PT 13.8 H INR 1.3 APTT 37 H Sodium 133 Potassium 4.1 Chloride 90 L Carbon Dioxide 23 Anion Gap 24 H BUN 36 H Creatinine 4.3 H Est GFR ( Amer) 19 Est GFR (Non-Af Amer) 16 POC Glucose (mg/dL) Random Glucose 671 H* D Calcium 10.2 Total Bilirubin 0.6 AST 18 ALT 16 L Alkaline Phosphatase 237 H D Total Creatine Kinase CK-MB (Mass) Troponin I 0.6320 H* NT-Pro-B Natriuret Pep 29986 H Total Protein 7.7 Albumin 4.3 Globulin 3.4 Albumin/Globulin Ratio 1.3 04/06/18 04/06/18 04/06/18 19:01 21:13 23:38 WBC RBC Hgb Hct MCV MCH MCHC RDW Plt Count MPV Neut % (Auto) Lymph % (Auto) [place] % (Auto) Eos % (Auto) Baso % (Auto) Neut # (Auto) Lymph # (Auto) [place] # (Auto) Eos # (Auto) Baso # (Auto) PT INR APTT Sodium Potassium Chloride Carbon Dioxide Anion Gap BUN Creatinine Est GFR ( Amer) Est GFR (Non-Af Amer) POC Glucose (mg/dL) 412 H* 302 H Random Glucose Calcium Total Bilirubin AST ALT Alkaline Phosphatase Total Creatine Kinase 61 CK-MB (Mass) 3.93 H Troponin I 3.5000 H* NT-Pro-B Natriuret Pep Total Protein Albumin Globulin Albumin/Globulin Ratio 04/07/18 04/07/18 06:26 07:08 WBC RBC Hgb Hct MCV MCH MCHC RDW Plt Count MPV Neut % (Auto) Lymph % (Auto) [place] % (Auto) Eos % (Auto) Baso % (Auto) Neut # (Auto) Lymph # (Auto) [place] # (Auto) Eos # (Auto) Baso # (Auto) PT INR APTT Sodium Potassium Chloride Carbon Dioxide Anion Gap BUN Creatinine Est GFR ( Amer) Est GFR (Non-Af Amer) POC Glucose (mg/dL) 107 Random Glucose Calcium Total Bilirubin AST ALT Alkaline Phosphatase Total Creatine Kinase 40 L CK-MB (Mass) 4.05 H Troponin I 3.9300 H* NT-Pro-B Natriuret Pep Total Protein Albumin Globulin Albumin/Globulin Ratio
--- NOTE | 2018-04-07 13:25 | CP.PCM.CON ---
History of Present Illness - History of Present Illness History of Present Illness: patient is a 37-year-old male who is well known to us with multiple medical problems including: Coronary artery disease Hx CABG; Hx PCI; bilateral BKA due diabetic PAD; labile HTN; uncontrolled DM; ESRD ON HD; PAROX AFIB/Flutter; HX GI BLEED; KlEINFELTERS; LEGALLY BLIND CHRONIC DIASTOLIC DYSFUNCTION. He has chronic non-revascularizable CAD due to diffuse diabetic small vessels and prior grafts have closed. He has intermittent Class 2 angina and recurrent episodes due to same as well as acute on chronic diastolic dysfunction from labile HTN and DM due to non-compliance. Presented with sensation of fast beats and generalized weakness He has chronic chest pains which have improved and near resolved at time of exam No ADHF No fevers/chills/N/V or diaphoresis No syncope Review of Systems - Review of Systems All systems: reviewed and no additional remarkable complaints except Past Patient History - Infectious Disease Hx of Infectious Diseases: None - Tetanus Immunizations Tetanus Immunization: >10 years Ago - Past Medical History & Family History Past Medical History?: Yes - Past Social History Smoking Status: Never Smoked - CARDIAC Hx Atrial Fibrillation: Yes Hx Cardia Arrhythmia: Yes Hx Congestive Heart Failure: Yes Hx Hypercholesterolemia: Yes Hx Hypertension: Yes - PULMONARY Hx Asthma: Yes Hx Bronchitis: Yes Hx Chronic Obstructive Pulmonary Disease (COPD): Yes Hx Pneumonia: Yes - NEUROLOGICAL Hx Alzheimer's Disease: Yes Hx Seizures: Yes - HEENT Hx HEENT Problems: Yes Hx Blind: Yes (legally blind) Hx Cataracts: Yes - RENAL Hx Chronic Kidney Disease: Yes Hx Kidney Stones: No - ENDOCRINE/METABOLIC Hx Hyperthyroidism: No Hx Hypothyroidism: Yes - HEMATOLOGICAL/ONCOLOGICAL Hx Anemia: Yes - INTEGUMENTARY Hx Dermatological Problems: No - MUSCULOSKELETAL/RHEUMATOLOGICAL Hx Arthritis: Yes Hx Falls: No - GASTROINTESTINAL Hx Gall Bladder Disease: Yes Hx Gastritis: Yes - GENITOURINARY/GYNECOLOGICAL Hx Sexually Transmitted Disorders: No - PSYCHIATRIC Hx Anxiety: Yes Hx Depression: Yes Hx Substance Use: No - SURGICAL HISTORY Hx Cholecystectomy: Yes (2011) 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/2009) Hx Coronary Stent: Yes - ANESTHESIA Hx Anesthesia: Yes Hx Anesthesia Reactions: No Hx Malignant Hyperthermia: No Meds Allergies/Adverse Reactions: Allergies Allergy/AdvReac Type Severity Reaction Status Date / Time acetaminophen [From Percocet] Allergy RASH Verified 04/06/18 16:12 atenolol Allergy RASH Verified 04/06/18 16:12 digoxin Allergy RASH Verified 04/06/18 16:12 milk Allergy ITCHING Verified 04/06/18 16:12 morphine Allergy RASH Verified 04/06/18 16:12 oxycodone HCl [From Percocet] Allergy RASH Verified 04/06/18 16:12 - Medications Medications: Current Medications Albuterol/Ipratropium (Duoneb 3 Mg/0.5 Mg (3 Ml) Ud) [address] [facility] Last Admin: 04/07/18 11:10 Dose: 3 ml Amiodarone HCl (Cordarone) [address] [facility] Last Admin: 04/07/18 09:36 Dose: 200 mg Amlodipine Besylate (Norvasc) [address] [facility] Last Admin: 04/07/18 12:57 Dose: 10 mg Aspirin (Aspirin) [address] [facility] Last Admin: 04/07/18 09:12 Dose: 325 mg Calcium Carbonate (Oscal) [address] [facility] Last Admin: 04/07/18 12:57 Dose: 500 mg Carvedilol (Coreg) [address] [facility] Last Admin: 04/07/18 09:13 Dose: 25 mg Docusate Sodium (Colace) 100 mg PO BID PRN PRN Reason: Constipation Ergocalciferol (Drisdol 50,000 Intl Units Cap) [address] [facility] Heparin Sodium (Porcine) (Heparin) 5,[address] [facility] Last Admin: 04/07/18 09:39 Dose: 5,000 units Hydromorphone HCl (Dilaudid) 1 mg IVP Q6H PRN PRN Reason: Pain, moderate (4-7) Last Admin: 04/07/18 09:37 Dose: 1 mg Insulin Aspart (Novolog) [address] [facility] Last Admin: 04/07/18 09:48 Dose: 10 units Insulin Detemir (Levemir) [address] [facility] Last Admin: 04/06/18 22:37 Dose: 20 units Insulin Human Regular (Novolin R) [address] [facility] PRN Reason: Protocol Last Admin: 04/07/18 12:51 Dose: Not Given Isosorbide Mononitrate (Imdur) [address] [facility] Last Admin: 04/07/18 09:36 Dose: 60 mg Lactulose (Enulose) [address] [facility] Levetiracetam (Keppra) [address] [facility] Last Admin: 04/07/18 09:13 Dose: 500 mg Montelukast Sodium (Singulair) [address] [facility] Last Admin: 04/07/18 09:13 Dose: 10 mg Pantoprazole Sodium (Protonix Ec Tab) [address] [facility] Last Admin: 04/07/18 09:19 Dose: 20 mg Ranolazine (Ranexa) [address] [facility] Last Admin: 04/07/18 09:36 Dose: 500 mg Rosuvastatin Calcium (Crestor) [address] [facility] Last Admin: 04/06/18 21:37 Dose: 10 mg Sertraline HCl (Zoloft) [address] [facility] Last Admin: 04/07/18 09:36 Dose: 50 mg Valproate Sodium (Depakene Cap) [address] [facility] Vitamin B Complex/Vit C/Folic Acid (Nephro-Courtney) [address] [facility] Last Admin: 04/07/18 09:12 Dose: 1 tab Physical Exam - Constitutional Appears: No Acute Distress - Head Exam Head Exam: ATRAUMATIC, NORMAL INSPECTION, NORMOCEPHALIC - Eye Exam Eye Exam: EOMI, Normal appearance - ENT Exam ENT Exam: Mucous Membranes Moist - Respiratory Exam Respiratory Exam: Clear to Auscultation Bilateral. absent: Rhonchi, Wheezes - Cardiovascular Exam Cardiovascular Exam: REGULAR RHYTHM, +S1, +S2. absent: +S4, Systolic Murmur - GI/Abdominal Exam GI & Abdominal Exam: Normal Bowel Sounds, Soft. absent: Tenderness - Extremities Exam Extremities exam: Positive for: normal inspection (b/L BKA) - Neurological Exam Neurological exam: Alert, Oriented x3 - Psychiatric Exam Psychiatric exam: Normal Affect, Normal Mood - Skin Skin Exam: Normal Color, Warm Results - Vital Signs Recent Vital Signs: Last Vital Signs Temp 97.3 F L 04/07/18 07:00 Pulse 57 L 04/07/18 07:00 Resp 18 04/07/18 07:00 BP 150/70 04/07/18 09:13 Pulse Ox 97 04/07/18 07:00 - Labs Result Diagrams: 04/08/18 10:08 04/08/18 10:08 Labs: Laboratory Results - last 24 hr 04/06/18 04/06/18 04/06/18 17:07 17:07 17:07 WBC 12.7 H D RBC 4.21 L Hgb 11.9 L D Hct 37.6 MCV 89.5 MCH 28.2 MCHC 31.6 L RDW 18.9 H Plt Count 260 D MPV 9.9 Neut % (Auto) 61.4 Lymph % (Auto) 28.4 Greer % (Auto) 8.1 Eos % (Auto) 1.1 Baso % (Auto) 1.0 Neut # (Auto) 7.8 H Lymph # (Auto) 3.6 Greer # (Auto) 1.0 H Eos # (Auto) 0.1 Baso # (Auto) 0.1 PT 13.8 H INR 1.3 APTT 37 H Sodium 133 Potassium 4.1 Chloride 90 L Carbon Dioxide 23 Anion Gap 24 H BUN 36 H Creatinine 4.3 H Est GFR ( Amer) 19 Est GFR (Non-Af Amer) 16 POC Glucose (mg/dL) Random Glucose 671 H* D Calcium 10.2 Total Bilirubin 0.6 AST 18 ALT 16 L Alkaline Phosphatase 237 H D Total Creatine Kinase CK-MB (Mass) Troponin I 0.6320 H* NT-Pro-B Natriuret Pep 56260 H Total Protein 7.7 Albumin 4.3 Globulin 3.4 Albumin/Globulin Ratio 1.3 04/06/18 04/06/18 04/06/18 19:01 21:13 23:38 WBC RBC Hgb Hct MCV MCH MCHC RDW Plt Count MPV Neut % (Auto) Lymph % (Auto) Greer % (Auto) Eos % (Auto) Baso % (Auto) Neut # (Auto) Lymph # (Auto) Greer # (Auto) Eos # (Auto) Baso # (Auto) PT INR APTT Sodium Potassium Chloride Carbon Dioxide Anion Gap BUN Creatinine Est GFR ( Amer) Est GFR (Non-Af Amer) POC Glucose (mg/dL) 412 H* 302 H Random Glucose Calcium Total Bilirubin AST ALT Alkaline Phosphatase Total Creatine Kinase 61 CK-MB (Mass) 3.93 H Troponin I 3.5000 H* NT-Pro-B Natriuret Pep Total Protein Albumin Globulin Albumin/Globulin Ratio 04/07/18 04/07/18 04/07/18 06:26 07:08 11:11 WBC RBC Hgb Hct MCV MCH MCHC RDW Plt Count MPV Neut % (Auto) Lymph % (Auto) Greer % (Auto) Eos % (Auto) Baso % (Auto) Neut # (Auto) Lymph # (Auto) Greer # (Auto) Eos # (Auto) Baso # (Auto) PT INR APTT Sodium Potassium Chloride Carbon Dioxide Anion Gap BUN Creatinine Est GFR ( Amer) Est GFR (Non-Af Amer) POC Glucose (mg/dL) 107 61 L Random Glucose Calcium Total Bilirubin AST ALT Alkaline Phosphatase Total Creatine Kinase 40 L CK-MB (Mass) 4.05 H Troponin I 3.9300 H* NT-Pro-B Natriuret Pep Total Protein Albumin Globulin Albumin/Globulin Ratio 04/07/18 04/07/18 11:13 11:48 WBC RBC Hgb Hct MCV MCH MCHC RDW Plt Count MPV Neut % (Auto) Lymph % (Auto) Greer % (Auto) Eos % (Auto) Baso % (Auto) Neut # (Auto) Lymph # (Auto) Greer # (Auto) Eos # (Auto) Baso # (Auto) PT INR APTT Sodium Potassium Chloride Carbon Dioxide Anion Gap BUN Creatinine Est GFR ( Amer) Est GFR (Non-Af Amer) POC Glucose (mg/dL) 64 L 60 L Random Glucose Calcium Total Bilirubin AST ALT Alkaline Phosphatase Total Creatine Kinase CK-MB (Mass) Troponin I NT-Pro-B Natriuret Pep Total Protein Albumin Globulin Albumin/Globulin Ratio - EKG Data EKG Interpreted by: Myself Assessment & Plan - Assessment and Plan (Free Text) Assessment: CP Chronic CAD with CCS class 1-2 angina Chronic diastolic and mild systolic dysfunction HTN Uncontrolled DM ESRD on HD Aflutter RVR Plan: CP has resolved Aflutter persistent on EKG: Volume status: euvolemic: Known mild LV systolic dysfunction, restrictive diastolic dysfunction, mod-sev LVH minimal trop has been noted on multiple admissions: DDX microvascular dz, chronic CAD/demand ischemia; ESRD, AFlutter with RVR Given diffuse diabetic vasculopathy and small vessels: medical treatment only at this time :: control sugars :: cont Coreg, clonidine, Isosorbide, Ranexa :: suggest addition of cardizem 30 q8 and titrate to help rate control :: statin for chronic CAD :: ASA or DAPT if can be tolerated :: cont amiodarone to help maintain NSR :: DVT prophylaxis :: Patient with hx of intolerance to AC due to GIB: this issues has been evaluated multiple times....reconsider if GIB risk can be reduced. :: will get EP consult for consideration of aflutter ablation
[2018-04-07] MEDS ORDERED: Ergocalciferol 50,000 Intl Units Cap PO SCH (18:00)
--- NOTE | 2018-04-07 18:32 | CP.PCM.HP ---
History of Present Illness - History of Present Illness History of Present Illness: came in for chest pain sob palpition was on cardiac arrythmia fib flutter bs hi Present on Admission - Present on Admission Any Indicators Present on Admission: Yes Review of Systems - Review of Systems Systems not reviewed;Unavailable: Acuity of Condition - Constitutional Constitutional: Excessive Sweating, Fatigue - EENT Eyes: Blind Spots Ears: As Per HPI Nose/Mouth/Throat: As Per HPI - Cardiovascular Cardiovascular: Chest Pain at Rest, Dyspnea, Irregular Heart Rhythm, Rapid Heart Rate - Respiratory Respiratory: Dyspnea - Gastrointestinal Gastrointestinal: As Per HPI - Genitourinary Genitourinary: As Per HPI - Reproductive: 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 - Integumentary Integumentary: As Per HPI - Neurological Neurological: Numbness, Sensory Deficit, Weakness, Other Visual Disturbances - Psychiatric Psychiatric: Depression - Endocrine Endocrine: Fatigue, Palpitations, Polydipsia, Polyphagia, Polyuria Additional Comments: sometims non copliant with insulin - Hematologic/Lymphatic Additional comments: aneamia Past Patient History - Infectious Disease Hx of Infectious Diseases: None - Tetanus Immunizations Tetanus Immunization: >10 years Ago - Past Medical History & Family History Past Medical History?: Yes - Past Social History Smoking Status: Never Smoked - CARDIAC Hx Atrial Fibrillation: Yes Hx Cardia Arrhythmia: Yes Hx Congestive Heart Failure: Yes Hx Hypercholesterolemia: Yes Hx Hypertension: Yes - PULMONARY Hx Asthma: Yes Hx Bronchitis: Yes Hx Chronic Obstructive Pulmonary Disease (COPD): Yes Hx Pneumonia: Yes - NEUROLOGICAL Hx Alzheimer's Disease: Yes Hx Seizures: Yes - HEENT Hx HEENT Problems: Yes Hx Blind: Yes (legally blind) Hx Cataracts: Yes - RENAL Hx Chronic Kidney Disease: Yes Hx Kidney Stones: No - ENDOCRINE/METABOLIC Hx Hyperthyroidism: No Hx Hypothyroidism: Yes - HEMATOLOGICAL/ONCOLOGICAL Hx Anemia: Yes - INTEGUMENTARY Hx Dermatological Problems: No - MUSCULOSKELETAL/RHEUMATOLOGICAL Hx Arthritis: Yes Hx Falls: No - GASTROINTESTINAL Hx Gall Bladder Disease: Yes Hx Gastritis: Yes - GENITOURINARY/GYNECOLOGICAL Hx Sexually Transmitted Disorders: No - PSYCHIATRIC Hx Anxiety: Yes Hx Depression: Yes Hx Substance Use: No - SURGICAL HISTORY Hx Cholecystectomy: Yes (2011) 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/2009) Hx Coronary Stent: Yes - ANESTHESIA Hx Anesthesia: Yes Hx Anesthesia Reactions: No Hx Malignant Hyperthermia: No Meds Allergies/Adverse Reactions: Allergies Allergy/AdvReac Type Severity Reaction Status Date / Time acetaminophen [From Percocet] Allergy RASH Verified 04/06/18 16:12 atenolol Allergy RASH Verified 04/06/18 16:12 digoxin Allergy RASH Verified 04/06/18 16:12 milk Allergy ITCHING Verified 04/06/18 16:12 morphine Allergy RASH Verified 04/06/18 16:12 oxycodone HCl [From Percocet] Allergy RASH Verified 04/06/18 16:12 Physical Exam - Constitutional Appears: In Acute Distress - Head Exam Head Exam: NORMAL INSPECTION - Eye Exam Eye Exam: Conjunctival injection Additional comments: blind - ENT Exam ENT Exam: Mucous Membranes Dry - Neck Exam Neck exam: Positive for: Normal Inspection - Respiratory Exam Respiratory Exam: Decreased Breath Sounds, Rales - Cardiovascular Exam Cardiovascular Exam: Tachycardia, +S4 - GI/Abdominal Exam GI & Abdominal Exam: Normal Bowel Sounds - Rectal Exam Rectal Exam: Deferred - Extremities Exam Additional comments: bilateral amputation Results - Vital Signs Recent Vital Signs: Last Vital Signs Temp 97.4 F L 04/07/18 16:00 Pulse 85 04/07/18 16:20 Resp 20 04/07/18 16:00 BP 110/70 04/07/18 17:58 Pulse Ox 100 04/07/18 16:00 - Labs Result Diagrams: 04/06/18 17:07 04/06/18 17:07 Labs: Laboratory Results - last 24 hr 04/06/18 04/06/18 04/06/18 19:01 21:13 23:38 POC Glucose (mg/dL) 412 H* 302 H Total Creatine Kinase 61 CK-MB (Mass) 3.93 H Troponin I 3.5000 H* 04/07/18 04/07/18 04/07/18 06:26 07:08 11:11 POC Glucose (mg/dL) 107 61 L Total Creatine Kinase 40 L CK-MB (Mass) 4.05 H Troponin I 3.9300 H* 04/07/18 04/07/18 11:13 11:48 POC Glucose (mg/dL) 64 L 60 L Total Creatine Kinase CK-MB (Mass) Troponin I Assessment & Plan - Assessment and Plan (Free Text) Assessment: acute aluter fib chf chest pain sever cad dmid uncontroled copd Plan: as per orders - Date & Time Date: 04/07/18 Time: 18:36
[2018-04-07] MEDS: Insulin Detemir 100 units/ml Vial (Levemir) SC SCH (21:25)
--- NOTE | 2018-04-08 00:01 | CARD ---
APPROVED REPORT Date of service: 04/06/2018 EKG Measurement Heart [id number] <Conclusion> Normal sinus rhythm Left ventricular hypertrophy with QRS widening and repolarization abnormality Possible Inferior infarct, age undetermined Abnormal ECG
--- NOTE | 2018-04-08 00:03 | CARD ---
APPROVED REPORT Date of service: 04/06/2018 EKG Measurement Heart [id number] <Conclusion> Atrial flutter with variable AV block Incomplete left bundle branch block Left ventricular hypertrophy with repolarization abnormality Possible inferior wall MD, age undetermined Abnormal ECG
--- NOTE | 2018-04-08 00:04 | CARD ---
APPROVED REPORT Date of service: 04/06/2018 EKG Measurement Heart [id number] <Conclusion> Atrial flutter with variable AV block Incomplete left bundle branch block Left ventricular hypertrophy with repolarization abnormality Possible inferior wall infarct, age undetermined Abnormal ECG
--- NOTE | 2018-04-08 00:05 | CARD ---
APPROVED REPORT Date of service: 04/06/2018 EKG Measurement Heart [id number] <Conclusion> Atrial flutter with variable AV block Left ventricular hypertrophy with QRS widening and repolarization abnormality Inferior infarct, age undetermined Abnormal ECG
[2018-04-08] MEDS: Albuterol-Ipratrop 3 mg / 0.5 (3 ml) UD INH SCH ×6 (00:32→19:45)
[2018-04-08] MEDS: HYDROmorphone 1 mg/ml ISec IVP PRN ×3 (05:39→18:19)
[2018-04-08] MEDS: (Novolin R) Insulin Human Regular 100 units/ml vial SC SCH ×4 (08:30→21:37)
[2018-04-08] MEDS: Multivitamin Vitamin B Complex (Nephro-Vite) Tab PO SCH (08:50)
[2018-04-08] MEDS: (Novolog) Insulin Aspart, Recombinant 100 u/ml 10 ml vial SC SCH (10:20)
[2018-04-08] MEDS: Ranolazine 500 mg Extended Release Tablets PO SCH ×2 (10:21→17:41)
[2018-04-08] MEDS: Pantoprazole 20 mg EC Tab PO SCH (10:21)
[2018-04-08 10:24] LABS: BASO % 0.4 % (0.0-2.0); EOS # 0.2 K/uL (0.0-0.7); EOS % 1.8 % (0.0-4.0); HEMOGLOBIN 10.3 g/dL (12.0-18.0); LYMPH # 2.8 K/uL (1.0-4.3); LYMPH % 21.9 % (20.0-40.0); MEAN CELL VOLUME 88.6 fL (80.0-94.0); MEAN CORPUSCULAR HEMOGLOBIN 28.6 pg (27.0-31.0); MEAN CORPUSCULAR HGB CONC 32.3 g/dL (33.0-37.0); MEAN PLATELET VOLUME 10.2 fL (7.2-11.7); MONO # 0.8 K/uL (0.0-0.8); MONO % 6.1 % (0.0-10.0); NEUT # 8.9 K/uL (1.8-7.0); NEUT % 69.8 % (50.0-75.0); RBC 3.61 Mil/uL (4.40-5.90); RED CELL DISTRIBUTION WIDTH 18.3 % (11.5-14.5); WHITE BLOOD COUNT 12.7 K/uL (4.8-10.8)
--- NOTE | 2018-04-08 10:36 | CP.PCM.PN ---
Subjective - Date & Time of Evaluation Date of Evaluation: 04/08/18 Time of Evaluation: 10:36 Objective - Vital Signs/Intake and Output Vital Signs (last 24 hours): Temp Pulse Resp BP Pulse Ox 97.7 F 62 18 124/53 L 100 04/08/18 07:00 04/08/18 07:15 04/08/18 07:00 04/08/18 07:00 04/08/18 07:00 - Medications Medications: Current Medications Albuterol/Ipratropium (Duoneb 3 Mg/0.5 Mg (3 Ml) Ud) 3 ml INH RQ4 [facility] Last Admin: 04/08/18 07:26 Dose: 3 ml Amiodarone HCl (Cordarone) 200 mg PO DAILY [facility] Last Admin: 04/08/18 10:18 Dose: Not Given Amlodipine Besylate (Norvasc) 5 mg PO DAILY [facility] Last Admin: 04/08/18 10:20 Dose: Not Given Aspirin (Aspirin) 325 mg PO DAILY [facility] Last Admin: 04/08/18 10:18 Dose: Not Given Calcium Carbonate (Oscal) 500 mg PO BID [facility] Last Admin: 04/08/18 10:21 Dose: Not Given Carvedilol (Coreg) 25 mg PO BID [facility] Last Admin: 04/08/18 10:18 Dose: Not Given Docusate Sodium (Colace) 100 mg PO BID PRN PRN Reason: Constipation Ergocalciferol (Drisdol 50,000 Intl Units Cap) 1 cap PO Q7D [facility] Last Admin: 04/07/18 18:13 Dose: 1 cap Heparin Sodium (Porcine) (Heparin) 5,000 units SC Q12 [facility] Last Admin: 04/08/18 10:20 Dose: Not Given Heparin Sodium (Porcine) (Heparin) 3,700 units IVP TTS [facility] Hydromorphone HCl (Dilaudid) 1 mg IVP Q6H PRN PRN Reason: Pain, moderate (4-7) Last Admin: 04/08/18 05:39 Dose: 1 mg Insulin Aspart (Novolog) 10 unit SC DAILY [facility] Last Admin: 04/08/18 10:20 Dose: Not Given Insulin Detemir (Levemir) 20 unit SC HS [facility] Last Admin: 04/07/18 21:25 Dose: 20 units Insulin Human Regular (Novolin R) 0 unit SC ACHS [facility] PRN Reason: Protocol Last Admin: 04/08/18 08:30 Dose: 8 units Isosorbide Mononitrate (Imdur) 60 mg PO DAILY [facility] Last Admin: 04/08/18 10:20 Dose: Not Given Lactulose (Enulose) 10 gm PO Q24H [facility] Last Admin: 04/07/18 18:14 Dose: Not Given Levetiracetam (Keppra) 500 mg PO BID [facility] Last Admin: 04/08/18 10:20 Dose: Not Given Montelukast Sodium (Singulair) 10 mg PO DAILY [facility] Last Admin: 04/08/18 10:21 Dose: Not Given Pantoprazole Sodium (Protonix Ec Tab) 20 mg PO DAILY [facility] Last Admin: 04/08/18 10:21 Dose: Not Given Ranolazine (Ranexa) 500 mg PO BID [facility] Last Admin: 04/08/18 10:21 Dose: Not Given Rosuvastatin Calcium (Crestor) 10 mg PO HS [facility] Last Admin: 04/07/18 21:25 Dose: 10 mg Sertraline HCl (Zoloft) 50 mg PO DAILY [facility] Last Admin: 04/08/18 10:21 Dose: Not Given Valproate Sodium (Depakene Cap) 250 mg PO QID [facility] Last Admin: 04/08/18 10:18 Dose: Not Given Vitamin B Complex/Vit C/Folic Acid (Nephro-Courtney) 1 tab PO 0800 [facility] Last Admin: 04/08/18 08:50 Dose: 1 tab - Labs Labs: 04/08/18 10:08 04/06/18 17:07 PT 13.8 SECONDS (9.7-12.2) H 04/06/18 17:07 INR 1.3 04/06/18 17:07 APTT 37 SECONDS (21-34) H 04/06/18 17:07 Assessment and Plan - Assessment and Plan (Free Text) Assessment: FOLLOW UP WITH DR. BELL IN THE OFFICE WITHIN 5-7 DAYS--CALL FOR APPT. -CONTINUE YOUR DIALYSIS USUAL---DON'T SKIP ANY DAYS!! -FOLLOW UP WITH YOUR KIDNEY DOCTOR IN THE OFFICE WITHIN 5-7 DAYS--CALL FOR APPT. -CONTINUE HOME MEDICATIONS USUAL. -NO NEW PRESCRIPTIONS. -FOR FURTHER CONCERNS OR QUESTIONS, CONTACT DR. BELL'S OFFICE.
[2018-04-08 10:52] LABS: ALB/GLOB RATIO 1.2 (1.0-2.1); ALBUMIN 3.9 g/dL (3.5-5.0)
--- NOTE | 2018-04-08 10:57 | CP.PCM.PN ---
Subjective - Date & Time of Evaluation Date of Evaluation: 04/08/18 Time of Evaluation: 10:55 - Subjective Subjective: still c/o of chest painsob on dialysis today Objective - Vital Signs/Intake and Output Vital Signs (last 24 hours): Temp Pulse Resp BP Pulse Ox 97.7 F 62 18 124/53 L 100 04/08/18 07:00 04/08/18 07:15 04/08/18 07:00 04/08/18 07:00 04/08/18 07:00 - Medications Medications: Current Medications Albuterol/Ipratropium (Duoneb 3 Mg/0.5 Mg (3 Ml) Ud) [address] [facility] Last Admin: 04/08/18 07:26 Dose: 3 ml Amiodarone HCl (Cordarone) [address] [facility] Last Admin: 04/08/18 10:18 Dose: Not Given Amlodipine Besylate (Norvasc) [address] [facility] Last Admin: 04/08/18 10:20 Dose: Not Given Aspirin (Aspirin) [address] [facility] Last Admin: 04/08/18 10:18 Dose: Not Given Calcium Carbonate (Oscal) [address] [facility] Last Admin: 04/08/18 10:21 Dose: Not Given Carvedilol (Coreg) [address] [facility] Last Admin: 04/08/18 10:18 Dose: Not Given Docusate Sodium (Colace) 100 mg PO BID PRN PRN Reason: Constipation Ergocalciferol (Drisdol 50,000 Intl Units Cap) [address] [facility] Last Admin: 04/07/18 18:13 Dose: 1 cap Heparin Sodium (Porcine) (Heparin) 5,[address] [facility] Last Admin: 04/08/18 10:20 Dose: Not Given Heparin Sodium (Porcine) (Heparin) 3,[address] [facility] Hydromorphone HCl (Dilaudid) 1 mg IVP Q6H PRN PRN Reason: Pain, moderate (4-7) Last Admin: 04/08/18 05:39 Dose: 1 mg Insulin Aspart (Novolog) [address] [facility] Last Admin: 04/08/18 10:20 Dose: Not Given Insulin Detemir (Levemir) [address] [facility] Last Admin: 04/07/18 21:25 Dose: 20 units Insulin Human Regular (Novolin R) [facility] PRN Reason: Protocol Last Admin: 04/08/18 08:30 Dose: 8 units Isosorbide Mononitrate (Imdur) [address] [facility] Last Admin: 04/08/18 10:20 Dose: Not Given Lactulose (Enulose) [address] [facility] Last Admin: 04/07/18 18:14 Dose: Not Given Levetiracetam (Keppra) [address] [facility] Last Admin: 04/08/18 10:20 Dose: Not Given Montelukast Sodium (Singulair) [address] [facility] Last Admin: 04/08/18 10:21 Dose: Not Given Pantoprazole Sodium (Protonix Ec Tab) [address] [facility] Last Admin: 04/08/18 10:21 Dose: Not Given Ranolazine (Ranexa) [address] [facility] Last Admin: 04/08/18 10:21 Dose: Not Given Rosuvastatin Calcium (Crestor) [address] [facility] Last Admin: 04/07/18 21:25 Dose: 10 mg Sertraline HCl (Zoloft) [address] [facility] Last Admin: 04/08/18 10:21 Dose: Not Given Valproate Sodium (Depakene Cap) [address] [facility] Last Admin: 04/08/18 10:18 Dose: Not Given Vitamin B Complex/Vit C/Folic Acid (Nephro-Courtney) [address] [facility] Last Admin: 04/08/18 08:50 Dose: 1 tab - Labs Labs: 04/08/18 10:08 04/08/18 10:08 PT 13.8 SECONDS (9.7-12.2) H 04/06/18 17:07 INR 1.3 04/06/18 17:07 APTT 37 SECONDS (21-34) H 04/06/18 17:07 - Constitutional Appears: Non-toxic, In Acute Distress - Head Exam Head Exam: NORMOCEPHALIC - Eye Exam Eye Exam: Conjunctival injection - ENT Exam ENT Exam: Normal Exam - Cardiovascular Exam Cardiovascular Exam: Irregular Rhythm - GI/Abdominal Exam GI & Abdominal Exam: Tenderness - Back Exam Back Exam: NORMAL INSPECTION - Neurological Exam Neurological Exam: Oriented x3 - Psychiatric Exam Psychiatric exam: Normal Affect - Skin Skin Exam: Pallor Assessment and Plan - Assessment and Plan (Free Text) Assessment: ac chest pain cad chf dmid uncontroled Plan: cont treatment inc insulin
[2018-04-08 10:58] LABS: CALCIUM 8.8 mg/dl (8.6-10.4)
--- NOTE | 2018-04-08 15:35 | CP.PCM.PN ---
Subjective - Date & Time of Evaluation Date of Evaluation: 04/08/18 Time of Evaluation: 15:32 - Subjective Subjective: Nephrology Consultation Note: Assessment:stable SOB, chronic chest pain, A flutter Diabetic chronic Kidney Disease (E11.22) Hypertensive Chronic Kidney Disease (I12.0) End stage renal disease (N18.6) dependence on hemodialysis (Z99.2) (TTS) via AVF Anemia (D64.9), Hyperphosphatemia (E83.39), Secondary Hyperparathyroidism (E21.1 ), HTN (I12.0) CAD s/p CABG, diastolic CHF, parox A flutter/fib, intra-cardiac thrombus, hx of Heparin induced thrombocytopenia, hx of seizure, blindness Plan: plan for dialysis today as per TTS. Continue with Nephrovite 1 tab/day. last Hb 10.3-11.9 hence no HANNAH with HD for now Continue with phos binders home dose BP control with meds as ordered. norvasc lowered to 2.5 Glycemic control, Dialysis consistent diet Further work up/management as per primary team Dose meds/antibiotics for ESRD status. Avoid fleets enema/magnesium based laxatives. cardiology following Thanks for allowing me to participate in care of your patient. Will follow patient with you. Please call if any Qs. Dr Eric Temple Office: [phone] CC; Chest pain and SOB reason for consult: ESRD HPI: Pt is a 37 y/o transgender with hx of ESRD on hemodialysis (TTS) via permacath, chronic anemia, hyperphosphatemia, secondary hyperparathyroidism, Diabetes Mellitus, hypertension, CAD s/p CABG, diastolic CHF, pA flutter/fib, intra-cardiac thrombus, Heparin induced thrombocytopenia in past presented with complaints of SOB and chronic chest pain, palpitation which is better, c/o chronic shortness of breath but better ROS: All other negative except as in HPI. now better improved chronic chest pain , no GI symptoms. c/o SOB today Physical Examination: seen on HD General Appearance: in no acute respiratory distress, co-operative . Vitals reviewed and noted as below Head; Atraumatic, normocephalic ENT: no ulcers no thrush. Tongue is midline. Oropharynx: no rash or ulcers. EYES: Pt is blind both eyes Neck; supple no lymphadenopathy, no thyromegaly or bruit Lungs: Normal respiratory rate/effort. Breath sounds bilateral decreased at bases Heart: Normal rate. s1s2 normal. No rub or gallop. Extremities: no edema. No varicose veins. has b/l BKA. Neurological: Patient is awake follow commands no focal deficit Skin: Warm and dry. Normal turgor. No rash. Palpitation: Normal elasticity for age Abdomen: Abdomen is soft. Bowel sounds +. There is no abdominal tenderness, no guarding/rigidity or organomegaly Psych: limited insight and has normal affect/mood MSK: no joint tenderness or swelling. Digits and nails normal, no deformity : kidney or bladder not palpable Access: permacath Labs/imaging reviewed. Past medical history, past surgical history, family history, social history, allergy reviewed and noted as below Family Hx: no hx of CKD. Non contributory Objective - Vital Signs/Intake and Output Vital Signs (last 24 hours): Temp Pulse Resp BP Pulse Ox 97.4 F L 69 19 97/63 L 100 04/08/18 13:31 04/08/18 13:31 04/08/18 13:31 04/08/18 13:31 04/08/18 13:31 - Medications Medications: Current Medications Albuterol/Ipratropium (Duoneb 3 Mg/0.5 Mg (3 Ml) Ud) 3 ml INH RQ4 [facility] Last Admin: 04/08/18 11:41 Dose: Not Given Amiodarone HCl (Cordarone) 200 mg PO DAILY [facility] Last Admin: 04/08/18 10:18 Dose: Not Given Amlodipine Besylate (Norvasc) 5 mg PO DAILY [facility] Last Admin: 04/08/18 10:20 Dose: Not Given Aspirin (Aspirin) 325 mg PO DAILY [facility] Last Admin: 04/08/18 10:18 Dose: Not Given Calcium Carbonate (Oscal) 500 mg PO BID [facility] Last Admin: 04/08/18 10:21 Dose: Not Given Carvedilol (Coreg) 25 mg PO BID [facility] Last Admin: 04/08/18 10:18 Dose: Not Given Docusate Sodium (Colace) 100 mg PO BID PRN PRN Reason: Constipation Ergocalciferol (Drisdol 50,000 Intl Units Cap) 1 cap PO Q7D [facility] Last Admin: 04/07/18 18:13 Dose: 1 cap Heparin Sodium (Porcine) (Heparin) 5,000 units SC Q12 [facility] Last Admin: 04/08/18 10:20 Dose: Not Given Heparin Sodium (Porcine) (Heparin) 3,700 units IVP TTS [facility] Last Admin: 04/08/18 11:22 Dose: 3,700 units Hydromorphone HCl (Dilaudid) 1 mg IVP Q6H PRN PRN Reason: Pain, moderate (4-7) Last Admin: 04/08/18 12:11 Dose: 1 mg Insulin Aspart (Novolog) 10 unit SC DAILY [facility] Last Admin: 04/08/18 10:20 Dose: Not Given Insulin Detemir (Levemir) 24 unit SC [facility] Insulin Human Regular (Novolin R) 0 unit SC ACHS [facility] PRN Reason: Protocol Last Admin: 04/08/18 14:08 Dose: 2 units Isosorbide Mononitrate (Imdur) 60 mg PO DAILY [facility] Last Admin: 04/08/18 10:20 Dose: Not Given Lactulose (Enulose) 10 gm PO Q24H [facility] Last Admin: 04/07/18 18:14 Dose: Not Given Levetiracetam (Keppra) 500 mg PO BID [facility] Last Admin: 04/08/18 10:20 Dose: Not Given Montelukast Sodium (Singulair) 10 mg PO DAILY [facility] Last Admin: 04/08/18 10:21 Dose: Not Given Pantoprazole Sodium (Protonix Ec Tab) 20 mg PO DAILY [facility] Last Admin: 04/08/18 10:21 Dose: Not Given Ranolazine (Ranexa) 500 mg PO BID [facility] Last Admin: 04/08/18 10:21 Dose: Not Given Rosuvastatin Calcium (Crestor) 10 mg PO HS [facility] Last Admin: 04/07/18 21:25 Dose: 10 mg Sertraline HCl (Zoloft) 50 mg PO DAILY [facility] Last Admin: 04/08/18 10:21 Dose: Not Given Valproate Sodium (Depakene Cap) 250 mg PO QID [facility] Last Admin: 04/08/18 14:08 Dose: 250 mg Vitamin B Complex/Vit C/Folic Acid (Nephro-Courtney) 1 tab PO 0800 [facility] Last Admin: 04/08/18 08:50 Dose: 1 tab - Labs Labs: 04/08/18 10:08 04/08/18 10:08 PT 13.8 SECONDS (9.7-12.2) H 04/06/18 17:07 INR 1.3 04/06/18 17:07 APTT 37 SECONDS (21-34) H 04/06/18 17:07
[2018-04-08 16:27] VITALS: RESP 20
[2018-04-08] MEDS: Insulin Detemir 100 units/ml Vial (Levemir) SC SCH (21:40)
[2018-04-09] MEDS: Albuterol-Ipratrop 3 mg / 0.5 (3 ml) UD INH SCH ×6 (00:07→19:32)
--- NOTE | 2018-04-09 07:03 | CON ---
Copied To: Dioni Faustin MD Attending MD: Dioni Faustin MD ELECTROPHYSIOLOGY CONSULTATION Asked to see by Dr. Escobar regarding atrial flutter. HISTORY OF PRESENT ILLNESS: The patient is a young person with past medical history significant for hypertension, diabetes, no history of smoking or alcohol use. The patient has had MIs and stents in the past, and underwent bypass surgery in 2010. The patient has chronic renal failure and he is on hemodialysis with a catheter in the right subclavian vein. The patient had an AV fistula in the left arm which is nonfunctional. The patient has vascular disease and underwent bilateral above-knee amputations. The patient is also legally blind. The patient has history of atrial flutter, fibrillation for a long time. He has been admitted several times to [facility]. The patient comes in again with palpitations and shortness of breath. Noted to be in atrial flutter with rapid ventricular response. The patient spontaneously converted to sinus rhythm. The patient feels better now. PAST MEDICAL HISTORY: Significant for as above. The patient also in addition was noted to have a clot on the dialysis catheter which was treated with heparin. The patient, however, is not on anticoagulation because of history of GI bleed. PERSONAL HISTORY: The patient lives by himself. ALLERGIES: PERCOCET. MEDICATIONS: Include amiodarone 200 mg once a day. REVIEW OF SYSTEMS: As above. All other systems are negative. PHYSICAL EXAMINATION: VITAL SIGNS: Blood pressure 98/60, pulse rate 70, respiratory rate 18. NECK: No jugular venous distention. LUNGS: Have diminished breath sounds bilaterally. HEART: S1, S2 ejection systolic murmur, fistula in the left arm. ABDOMEN: Soft. No organomegaly or tenderness. EXTREMITIES: The patient has bilateral above-knee amputations. No cyanosis. Mild pallor. LABORATORY DATA: EKG on admission showed atrial flutter with rapid ventricular response, LVH with nonspecific ST-T changes. EKG done today shows normal sinus rhythm with nonspecific ST-T changes and an acceptable QT interval. ASSESSMENT AND PLAN: The patient with recurrent atrial flutter. Indications, risks, and benefits of ablation were discussed with the patient at length. He wants me to talk to his sister. Based on that, further recommendations can be made. For now, amiodarone dose will be increased to 200 mg p.o. b.i.d. Dioni Faustin MD [facility] # [id number]
--- NOTE | 2018-04-09 07:22 | CP.PCM.PN ---
Subjective - Date & Time of Evaluation Date of Evaluation: 04/08/18 Time of Evaluation: 12:30 - Subjective Subjective: No CP Admitted for Parox Aflutters No appears NSR no fevers or chills Objective - Vital Signs/Intake and Output Vital Signs (last 24 hours): Temp Pulse Resp BP Pulse Ox 98.3 F 72 20 148/58 L 98 04/08/18 23:29 04/08/18 23:29 04/08/18 23:29 04/08/18 23:29 04/08/18 23:29 Intake and Output: 04/09/18 04/09/18 06:59 18:59 Intake Total 100 Balance 100 - Medications Medications: Current Medications Albuterol/Ipratropium (Duoneb 3 Mg/0.5 Mg (3 Ml) Ud) 3 ml INH RQ4 [facility] Last Admin: 04/09/18 04:08 Dose: Not Given Amiodarone HCl (Cordarone) 200 mg PO BID [facility] Last Admin: 04/08/18 22:16 Dose: 200 mg Amlodipine Besylate (Norvasc) 2.5 mg PO DAILY [facility] Aspirin (Aspirin) 325 mg PO DAILY [facility] Last Admin: 04/08/18 10:18 Dose: Not Given Calcium Carbonate (Oscal) 500 mg PO BID [facility] Last Admin: 04/08/18 17:41 Dose: 500 mg Carvedilol (Coreg) 25 mg PO BID [facility] Last Admin: 04/08/18 17:40 Dose: 25 mg Docusate Sodium (Colace) 100 mg PO BID PRN PRN Reason: Constipation Ergocalciferol (Drisdol 50,000 Intl Units Cap) 1 cap PO Q7D [facility] Last Admin: 04/07/18 18:13 Dose: 1 cap Heparin Sodium (Porcine) (Heparin) 5,000 units SC Q12 [facility] Last Admin: 04/08/18 21:42 Dose: Not Given Heparin Sodium (Porcine) (Heparin) 3,700 units IVP TTS [facility] Last Admin: 04/08/18 11:22 Dose: 3,700 units Hydromorphone HCl (Dilaudid) 1 mg IVP Q6H PRN PRN Reason: Pain, moderate (4-7) Last Admin: 04/08/18 18:19 Dose: 1 mg Insulin Aspart (Novolog) 10 unit SC DAILY [facility] Last Admin: 04/08/18 10:20 Dose: Not Given Insulin Detemir (Levemir) 24 unit SC [facility] Last Admin: 04/08/18 21:40 Dose: 24 u Insulin Human Regular (Novolin R) 0 unit SC [facility] PRN Reason: Protocol Last Admin: 04/08/18 21:37 Dose: Not Given Isosorbide Mononitrate (Imdur) 60 mg PO DAILY [facility] Last Admin: 04/08/18 10:20 Dose: Not Given Lactulose (Enulose) 10 gm PO Q24H [facility] Last Admin: 04/08/18 17:41 Dose: Not Given Levetiracetam (Keppra) 500 mg PO BID [facility] Last Admin: 04/08/18 17:41 Dose: 500 mg Montelukast Sodium (Singulair) 10 mg PO DAILY [facility] Last Admin: 04/08/18 10:21 Dose: Not Given Pantoprazole Sodium (Protonix Ec Tab) 20 mg PO DAILY [facility] Last Admin: 04/08/18 10:21 Dose: Not Given Ranolazine (Ranexa) 500 mg PO BID [facility] Last Admin: 04/08/18 17:41 Dose: 500 mg Rosuvastatin Calcium (Crestor) 10 mg PO [facility] Last Admin: 04/08/18 21:39 Dose: 10 mg Sertraline HCl (Zoloft) 50 mg PO DAILY [facility] Last Admin: 04/08/18 10:21 Dose: Not Given Valproate Sodium (Depakene Cap) 250 mg PO QID [facility] Last Admin: 04/08/18 21:39 Dose: 250 mg Vitamin B Complex/Vit C/Folic Acid (Nephro-Courtney) 1 tab PO 0800 [facility] Last Admin: 04/08/18 08:50 Dose: 1 tab - Labs Labs: 04/08/18 10:08 04/08/18 10:08 PT 13.8 SECONDS (9.7-12.2) H 04/06/18 17:07 INR 1.3 04/06/18 17:07 APTT 37 SECONDS (21-34) H 04/06/18 17:07 - Constitutional Appears: No Acute Distress - Head Exam Head Exam: ATRAUMATIC, NORMAL INSPECTION, NORMOCEPHALIC - Eye Exam Eye Exam: absent: Normal appearance - Neck Exam Neck Exam: Full ROM, Normal Inspection - Respiratory Exam Respiratory Exam: Clear to Ausculation Bilateral, NORMAL BREATHING PATTERN - Cardiovascular Exam Cardiovascular Exam: REGULAR RHYTHM, +S1, +S2, Murmur - GI/Abdominal Exam GI & Abdominal Exam: Soft, Normal Bowel Sounds. absent: Tenderness - Extremities Exam Extremities Exam: absent: Normal Inspection (b/l BKA) - Neurological Exam Neurological Exam: Alert, CN II-XII Intact, Oriented x3 Assessment and Plan - Assessment and Plan (Free Text) Assessment: CP Chronic CAD with CCS class 1-2 angina Chronic diastolic and mild systolic dysfunction HTN Uncontrolled DM ESRD on HD Aflutter RVR paroxysmal Plan: CP has resolved Aflutter paroxysmal Volume status: euvolemic: Known mild LV systolic dysfunction, restrictive diastolic dysfunction, mod-sev LVH minimal trop has been noted on multiple admissions: DDX microvascular dz, chronic CAD/demand ischemia; ESRD, AFlutter with RVR Given diffuse diabetic vasculopathy and small vessels: medical treatment only at this time :: control sugars :: cont Coreg, clonidine, Isosorbide, Ranexa :: suggest addition of cardizem 30 q8 and titrate to help rate control if needed :: statin for chronic CAD :: ASA or DAPT if can be tolerated :: cont amiodarone to help maintain NSR :: DVT prophylaxis :: Patient with hx of intolerance to AC due to GIB: this issues has been evaluated multiple times....reconsider if GIB risk can be reduced. :: discussed case with EP. DR. Faustin --> decision to be made regards possibility of aflutter ablation after EP service speaks with family.
[2018-04-09] MEDS: HYDROmorphone 1 mg/ml ISec IVP PRN ×3 (07:31→19:54)
[2018-04-09] MEDS: Multivitamin Vitamin B Complex (Nephro-Vite) Tab PO SCH (08:05)
[2018-04-09] MEDS: (Novolin R) Insulin Human Regular 100 units/ml vial SC SCH ×4 (08:18→21:44)
[2018-04-09] MEDS: Ranolazine 500 mg Extended Release Tablets PO SCH ×2 (09:40→18:16)
[2018-04-09] MEDS: Pantoprazole 20 mg EC Tab PO SCH (09:42)
[2018-04-09] MEDS: (Novolog) Insulin Aspart, Recombinant 100 u/ml 10 ml vial SC SCH (09:42)
--- NOTE | 2018-04-09 11:29 | CP.PCM.PN ---
Subjective - Date & Time of Evaluation Date of Evaluation: 04/09/18 Time of Evaluation: 11:26 - Subjective Subjective: less chest pain still sob no palpitation Objective - Vital Signs/Intake and Output Vital Signs (last 24 hours): Temp Pulse Resp BP Pulse Ox 97.8 F 82 20 134/79 99 04/09/18 07:00 04/09/18 07:00 04/09/18 07:00 04/09/18 09:41 04/09/18 07:00 Intake and Output: 04/09/18 04/09/18 06:59 18:59 Intake Total 100 Balance 100 - Medications Medications: Current Medications Albuterol/Ipratropium (Duoneb 3 Mg/0.5 Mg (3 Ml) Ud) 3 ml INH RQ4 [facility] Last Admin: 04/09/18 08:04 Dose: 3 ml Amiodarone HCl (Cordarone) 200 mg PO BID [facility] Last Admin: 04/09/18 09:41 Dose: 200 mg Amlodipine Besylate (Norvasc) 2.5 mg PO DAILY [facility] Last Admin: 04/09/18 09:41 Dose: 2.5 mg Aspirin (Aspirin) 325 mg PO DAILY [facility] Last Admin: 04/09/18 09:41 Dose: 325 mg Calcium Carbonate (Oscal) 500 mg PO BID [facility] Last Admin: 04/09/18 09:42 Dose: 500 mg Carvedilol (Coreg) 25 mg PO BID [facility] Last Admin: 04/09/18 09:41 Dose: 25 mg Docusate Sodium (Colace) 100 mg PO BID PRN PRN Reason: Constipation Ergocalciferol (Drisdol 50,000 Intl Units Cap) 1 cap PO Q7D [facility] Last Admin: 04/07/18 18:13 Dose: 1 cap Heparin Sodium (Porcine) (Heparin) 5,000 units SC Q12 [facility] Last Admin: 04/09/18 09:42 Dose: 5,000 units Heparin Sodium (Porcine) (Heparin) 3,700 units IVP TTS [facility] Last Admin: 04/08/18 11:22 Dose: 3,700 units Hydromorphone HCl (Dilaudid) 1 mg IVP Q6H PRN PRN Reason: Pain, moderate (4-7) Last Admin: 04/09/18 07:31 Dose: 1 mg Insulin Aspart (Novolog) 10 unit SC DAILY [facility] Last Admin: 04/09/18 09:42 Dose: Not Given Insulin Detemir (Levemir) 24 unit SC [facility] Last Admin: 04/08/18 21:40 Dose: 24 u Insulin Human Regular (Novolin R) 0 unit SC [facility] PRN Reason: Protocol Last Admin: 04/09/18 08:18 Dose: Not Given Isosorbide Mononitrate (Imdur) 60 mg PO DAILY [facility] Last Admin: 04/09/18 09:41 Dose: 60 mg Lactulose (Enulose) 10 gm PO Q24H [facility] Last Admin: 04/08/18 17:41 Dose: Not Given Levetiracetam (Keppra) 500 mg PO BID [facility] Last Admin: 04/09/18 09:40 Dose: 500 mg Montelukast Sodium (Singulair) 10 mg PO DAILY [facility] Last Admin: 04/09/18 09:41 Dose: 10 mg Pantoprazole Sodium (Protonix Ec Tab) 20 mg PO DAILY [facility] Last Admin: 04/09/18 09:42 Dose: 20 mg Ranolazine (Ranexa) 500 mg PO BID [facility] Last Admin: 04/09/18 09:40 Dose: 500 mg Rosuvastatin Calcium (Crestor) 10 mg PO [facility] Last Admin: 04/08/18 21:39 Dose: 10 mg Sertraline HCl (Zoloft) 50 mg PO DAILY [facility] Last Admin: 04/09/18 09:41 Dose: 50 mg Valproate Sodium (Depakene Cap) 250 mg PO QID [facility] Last Admin: 04/09/18 09:40 Dose: 250 mg Vitamin B Complex/Vit C/Folic Acid (Nephro-Courtney) 1 tab PO 0800 [facility] Last Admin: 04/09/18 08:05 Dose: 1 tab - Labs Labs: 04/08/18 10:08 04/08/18 10:08 PT 13.8 SECONDS (9.7-12.2) H 04/06/18 17:07 INR 1.3 04/06/18 17:07 APTT 37 SECONDS (21-34) H 04/06/18 17:07 - Constitutional Appears: Non-toxic - Head Exam Head Exam: ATRAUMATIC - Eye Exam Eye Exam: Conjunctival injection - ENT Exam ENT Exam: Mucous Membranes Moist - Neck Exam Neck Exam: Full ROM - Respiratory Exam Respiratory Exam: Decreased Breath Sounds, Rales - Cardiovascular Exam Cardiovascular Exam: Irregular Rhythm, REGULAR RHYTHM - GI/Abdominal Exam GI & Abdominal Exam: Normal Bowel Sounds - Extremities Exam Extremities Exam: Normal Inspection - Back Exam Back Exam: CVA tenderness (R) - Neurological Exam Neurological Exam: Alert, Oriented x3 - Psychiatric Exam Psychiatric exam: Normal Affect - Skin Skin Exam: Pallor Assessment and Plan - Assessment and Plan (Free Text) Assessment: ac chest pain severe cad acute cardiac arrythmia dm esrf Plan: cont curent treatment and possible ablation tomoro as per cardiology
--- NOTE | 2018-04-09 12:10 | CP.PCM.PN ---
Subjective - Date & Time of Evaluation Date of Evaluation: 04/09/18 Time of Evaluation: 12:10 - Subjective Subjective: Nephrology Consultation Note: Assessment:stable SOB, chronic chest pain, A flutter Diabetic chronic Kidney Disease (E11.22) Hypertensive Chronic Kidney Disease (I12.0) End stage renal disease (N18.6) dependence on hemodialysis (Z99.2) (TTS) via AVF Anemia (D64.9), Hyperphosphatemia (E83.39), Secondary Hyperparathyroidism (E21.1 ), HTN (I12.0) CAD s/p CABG, diastolic CHF, parox A flutter/fib, intra-cardiac thrombus, hx of Heparin induced thrombocytopenia, hx of seizure, blindness Plan: plan for dialysis tomorrow as per TTS. Continue with Nephrovite 1 tab/day. last Hb 10.3-11.9 hence no HANNAH with HD for now Continue with phos binders home dose BP control with meds as ordered. norvasc lowered to 2.5 Glycemic control, Dialysis consistent diet Further work up/management as per primary team Dose meds/antibiotics for ESRD status. Avoid fleets enema/magnesium based laxatives. cardiology following Thanks for allowing me to participate in care of your patient. Will follow patient with you. Please call if any Qs. Dr Eric Temple Office: [phone] CC; Chest pain and SOB reason for consult: ESRD HPI: Pt is a 37 y/o transgender with hx of ESRD on hemodialysis (TTS) via permacath, chronic anemia, hyperphosphatemia, secondary hyperparathyroidism, Diabetes Mellitus, hypertension, CAD s/p CABG, diastolic CHF, pA flutter/fib, intra-cardiac thrombus, Heparin induced thrombocytopenia in past presented with complaints of SOB and chronic chest pain, palpitation which is better, c/o chronic shortness of breath but better ROS: All other negative except as in HPI. now better improved chronic chest pain , no GI symptoms. better SOB today Physical Examination: General Appearance: in no acute respiratory distress, co-operative . Vitals reviewed and noted as below Head; Atraumatic, normocephalic ENT: no ulcers no thrush. Tongue is midline. Oropharynx: no rash or ulcers. EYES: Pt is blind both eyes Neck; supple no lymphadenopathy, no thyromegaly or bruit Lungs: Normal respiratory rate/effort. Breath sounds bilateral decreased at bases Heart: Normal rate. s1s2 normal. No rub or gallop. Extremities: no edema. No varicose veins. has b/l BKA. Neurological: Patient is awake follow commands no focal deficit Skin: Warm and dry. Normal turgor. No rash. Palpitation: Normal elasticity for age Abdomen: Abdomen is soft. Bowel sounds +. There is no abdominal tenderness, no guarding/rigidity or organomegaly Psych: limited insight and has normal affect/mood MSK: no joint tenderness or swelling. Digits and nails normal, no deformity : kidney or bladder not palpable Access: permacath Labs/imaging reviewed. Past medical history, past surgical history, family history, social history, allergy reviewed and noted as below Family Hx: no hx of CKD. Non contributory Objective - Vital Signs/Intake and Output Vital Signs (last 24 hours): Temp Pulse Resp BP Pulse Ox 97.8 F 82 20 134/79 99 04/09/18 07:00 04/09/18 07:00 04/09/18 07:00 04/09/18 09:41 04/09/18 07:00 Intake and Output: 04/09/18 04/09/18 06:59 18:59 Intake Total 100 Balance 100 - Medications Medications: Current Medications Albuterol/Ipratropium (Duoneb 3 Mg/0.5 Mg (3 Ml) Ud) 3 ml INH RQ4 [facility] Last Admin: 04/09/18 11:38 Dose: Not Given Amiodarone HCl (Cordarone) 200 mg PO BID [facility] Last Admin: 04/09/18 09:41 Dose: 200 mg Amlodipine Besylate (Norvasc) 2.5 mg PO DAILY [facility] Last Admin: 04/09/18 09:41 Dose: 2.5 mg Aspirin (Aspirin) 325 mg PO DAILY [facility] Last Admin: 04/09/18 09:41 Dose: 325 mg Calcium Carbonate (Oscal) 500 mg PO BID [facility] Last Admin: 04/09/18 09:42 Dose: 500 mg Carvedilol (Coreg) 25 mg PO BID [facility] Last Admin: 04/09/18 09:41 Dose: 25 mg Docusate Sodium (Colace) 100 mg PO BID PRN PRN Reason: Constipation Ergocalciferol (Drisdol 50,000 Intl Units Cap) 1 cap PO Q7D [facility] Last Admin: 04/07/18 18:13 Dose: 1 cap Heparin Sodium (Porcine) (Heparin) 5,000 units SC Q12 [facility] Last Admin: 04/09/18 09:42 Dose: 5,000 units Heparin Sodium (Porcine) (Heparin) 3,700 units IVP TTS [facility] Last Admin: 04/08/18 11:22 Dose: 3,700 units Hydromorphone HCl (Dilaudid) 1 mg IVP Q6H PRN PRN Reason: Pain, moderate (4-7) Last Admin: 04/09/18 07:31 Dose: 1 mg Insulin Aspart (Novolog) 10 unit SC DAILY [facility] Last Admin: 04/09/18 09:42 Dose: Not Given Insulin Detemir (Levemir) 24 unit SC HS [facility] Last Admin: 04/08/18 21:40 Dose: 24 u Insulin Human Regular (Novolin R) 0 unit SC ACHS [facility] PRN Reason: Protocol Last Admin: 04/09/18 08:18 Dose: Not Given Isosorbide Mononitrate (Imdur) 60 mg PO DAILY [facility] Last Admin: 04/09/18 09:41 Dose: 60 mg Lactulose (Enulose) 10 gm PO Q24H [facility] Last Admin: 04/08/18 17:41 Dose: Not Given Levetiracetam (Keppra) 500 mg PO BID [facility] Last Admin: 04/09/18 09:40 Dose: 500 mg Montelukast Sodium (Singulair) 10 mg PO DAILY [facility] Last Admin: 04/09/18 09:41 Dose: 10 mg Pantoprazole Sodium (Protonix Ec Tab) 20 mg PO DAILY [facility] Last Admin: 04/09/18 09:42 Dose: 20 mg Ranolazine (Ranexa) 500 mg PO BID [facility] Last Admin: 04/09/18 09:40 Dose: 500 mg Rosuvastatin Calcium (Crestor) 10 mg PO HS [facility] Last Admin: 04/08/18 21:39 Dose: 10 mg Sertraline HCl (Zoloft) 50 mg PO DAILY [facility] Last Admin: 04/09/18 09:41 Dose: 50 mg Valproate Sodium (Depakene Cap) 250 mg PO QID [facility] Last Admin: 04/09/18 09:40 Dose: 250 mg Vitamin B Complex/Vit C/Folic Acid (Nephro-Courtney) 1 tab PO 0800 [facility] Last Admin: 04/09/18 08:05 Dose: 1 tab - Labs Labs: 04/08/18 10:08 04/08/18 10:08 PT 13.8 SECONDS (9.7-12.2) H 04/06/18 17:07 INR 1.3 04/06/18 17:07 APTT 37 SECONDS (21-34) H 04/06/18 17:07
--- NOTE | 2018-04-09 16:18 | CP.PCM.PN ---
Subjective - Date & Time of Evaluation Date of Evaluation: 04/09/18 Time of Evaluation: 16:17 - Subjective Subjective: Events reviewed. Objective - Vital Signs/Intake and Output Vital Signs (last 24 hours): Temp Pulse Resp BP Pulse Ox 97.8 F 65 20 95/51 L 96 04/09/18 15:40 04/09/18 15:40 04/09/18 15:40 04/09/18 15:40 04/09/18 15:40 Intake and Output: 04/09/18 04/09/18 06:59 18:59 Intake Total 100 800 Balance 100 800 - Medications Medications: Current Medications Albuterol/Ipratropium (Duoneb 3 Mg/0.5 Mg (3 Ml) Ud) 3 ml INH RQ4 [facility] Last Admin: 04/09/18 15:51 Dose: 3 ml Amiodarone HCl (Cordarone) 200 mg PO BID [facility] Last Admin: 04/09/18 09:41 Dose: 200 mg Amlodipine Besylate (Norvasc) 2.5 mg PO DAILY [facility] Last Admin: 04/09/18 09:41 Dose: 2.5 mg Aspirin (Aspirin) 325 mg PO DAILY [facility] Last Admin: 04/09/18 09:41 Dose: 325 mg Calcium Carbonate (Oscal) 500 mg PO BID [facility] Last Admin: 04/09/18 09:42 Dose: 500 mg Carvedilol (Coreg) 25 mg PO BID [facility] Last Admin: 04/09/18 09:41 Dose: 25 mg Docusate Sodium (Colace) 100 mg PO BID PRN PRN Reason: Constipation Ergocalciferol (Drisdol 50,000 Intl Units Cap) 1 cap PO Q7D [facility] Last Admin: 04/07/18 18:13 Dose: 1 cap Heparin Sodium (Porcine) (Heparin) 5,000 units SC Q12 [facility] Last Admin: 04/09/18 09:42 Dose: 5,000 units Heparin Sodium (Porcine) (Heparin) 3,700 units IVP TTS [facility] Last Admin: 04/08/18 11:22 Dose: 3,700 units Hydromorphone HCl (Dilaudid) 1 mg IVP Q6H PRN PRN Reason: Pain, moderate (4-7) Last Admin: 04/09/18 13:51 Dose: 1 mg Insulin Aspart (Novolog) 10 unit SC DAILY [facility] Last Admin: 04/09/18 09:42 Dose: Not Given Insulin Detemir (Levemir) 24 unit SC HS [facility] Last Admin: 04/08/18 21:40 Dose: 24 u Insulin Human Regular (Novolin R) 0 unit SC [facility] PRN Reason: Protocol Last Admin: 04/09/18 12:10 Dose: 3 units Isosorbide Mononitrate (Imdur) 60 mg PO DAILY [facility] Last Admin: 04/09/18 09:41 Dose: 60 mg Lactulose (Enulose) 10 gm PO Q24H [facility] Last Admin: 04/08/18 17:41 Dose: Not Given Levetiracetam (Keppra) 500 mg PO BID [facility] Last Admin: 04/09/18 09:40 Dose: 500 mg Montelukast Sodium (Singulair) 10 mg PO DAILY [facility] Last Admin: 04/09/18 09:41 Dose: 10 mg Pantoprazole Sodium (Protonix Ec Tab) 20 mg PO DAILY [facility] Last Admin: 04/09/18 09:42 Dose: 20 mg Ranolazine (Ranexa) 500 mg PO BID [facility] Last Admin: 04/09/18 09:40 Dose: 500 mg Rosuvastatin Calcium (Crestor) 10 mg PO [facility] Last Admin: 04/08/18 21:39 Dose: 10 mg Sertraline HCl (Zoloft) 50 mg PO DAILY [facility] Last Admin: 04/09/18 09:41 Dose: 50 mg Valproate Sodium (Depakene Cap) 250 mg PO QID [facility] Last Admin: 04/09/18 13:51 Dose: 250 mg Vitamin B Complex/Vit C/Folic Acid (Nephro-Courtney) 1 tab PO 0800 [facility] Last Admin: 04/09/18 08:05 Dose: 1 tab - Labs Labs: 04/08/18 10:08 04/08/18 10:08 PT 13.8 SECONDS (9.7-12.2) H 04/06/18 17:07 INR 1.3 04/06/18 17:07 APTT 37 SECONDS (21-34) H 04/06/18 17:07 Assessment and Plan - Assessment and Plan (Free Text) Assessment: CP Chronic CAD with CCS class 1-2 angina Chronic diastolic and mild systolic dysfunction HTN Uncontrolled DM ESRD on HD Aflutter RVR paroxysmal Plan: CP has resolved Aflutter paroxysmal Volume status: euvolemic: Known mild LV systolic dysfunction, restrictive diastolic dysfunction, mod-sev LVH minimal trop has been noted on multiple admissions: DDX microvascular dz, chronic CAD/demand ischemia; ESRD, AFlutter with RVR Given diffuse diabetic vasculopathy and small vessels: medical treatment only at this time :: control sugars :: cont Coreg, clonidine, Isosorbide, Ranexa :: suggest addition of cardizem 30 q8 and titrate to help rate control if needed :: statin for chronic CAD :: ASA or DAPT if can be tolerated :: cont amiodarone to help maintain NSR :: DVT prophylaxis :: Patient with hx of intolerance to AC due to GIB: this issues has been evaluated multiple times....reconsider if GIB risk can be reduced. :: discussed case with EP. DR. Faustin --> decision to be made regards possibility of aflutter ablation after EP service speaks with family.
[2018-04-09] MEDS: Insulin Detemir 100 units/ml Vial (Levemir) SC SCH (22:17)
[2018-04-10] MEDS: Albuterol-Ipratrop 3 mg / 0.5 (3 ml) UD INH SCH ×6 (00:20→20:00)
[2018-04-10] MEDS: HYDROmorphone 1 mg/ml ISec IVP PRN ×4 (01:58→20:49)
[2018-04-10] MEDS: Multivitamin Vitamin B Complex (Nephro-Vite) Tab PO SCH (08:28)
[2018-04-10] MEDS: (Novolin R) Insulin Human Regular 100 units/ml vial SC SCH ×4 (08:29→21:44)
--- NOTE | 2018-04-10 09:22 | CP.PCM.PN ---
Subjective - Date & Time of Evaluation Date of Evaluation: 04/10/18 Time of Evaluation: 09:21 - Subjective Subjective: Events reviewed Objective - Vital Signs/Intake and Output Vital Signs (last 24 hours): Temp Pulse Resp BP Pulse Ox 97.3 F L 61 20 126/74 100 04/10/18 08:07 04/10/18 08:07 04/10/18 08:07 04/10/18 08:07 04/10/18 08:07 - Medications Medications: Current Medications Albuterol/Ipratropium (Duoneb 3 Mg/0.5 Mg (3 Ml) Ud) 3 ml INH RQ4 [facility] Last Admin: 04/10/18 08:04 Dose: Not Given Amiodarone HCl (Cordarone) 200 mg PO BID [facility] Last Admin: 04/09/18 18:17 Dose: 200 mg Amlodipine Besylate (Norvasc) 2.5 mg PO DAILY [facility] Last Admin: 04/09/18 09:41 Dose: 2.5 mg Aspirin (Aspirin) 325 mg PO DAILY [facility] Last Admin: 04/09/18 09:41 Dose: 325 mg Calcium Carbonate (Oscal) 500 mg PO BID [facility] Last Admin: 04/09/18 18:15 Dose: 500 mg Carvedilol (Coreg) 25 mg PO BID [facility] Last Admin: 04/09/18 18:17 Dose: 25 mg Docusate Sodium (Colace) 100 mg PO BID PRN PRN Reason: Constipation Ergocalciferol (Drisdol 50,000 Intl Units Cap) 1 cap PO Q7D [facility] Last Admin: 04/07/18 18:13 Dose: 1 cap Heparin Sodium (Porcine) (Heparin) 5,000 units SC Q12 [facility] Last Admin: 04/09/18 22:17 Dose: Not Given Heparin Sodium (Porcine) (Heparin) 3,700 units IVP TTS [facility] Last Admin: 04/08/18 11:22 Dose: 3,700 units Hydromorphone HCl (Dilaudid) 1 mg IVP Q6H PRN PRN Reason: Pain, moderate (4-7) Last Admin: 04/10/18 08:29 Dose: 1 mg Insulin Aspart (Novolog) 10 unit SC DAILY [facility] Last Admin: 04/09/18 09:42 Dose: Not Given Insulin Detemir (Levemir) 24 unit SC HS [facility] Last Admin: 04/09/18 22:17 Dose: 24 u Insulin Human Regular (Novolin R) 0 unit SC ACHS [facility] PRN Reason: Protocol Last Admin: 04/10/18 08:29 Dose: 3 units Isosorbide Mononitrate (Imdur) 60 mg PO DAILY [facility] Last Admin: 04/09/18 09:41 Dose: 60 mg Lactulose (Enulose) 10 gm PO Q24H [facility] Last Admin: 04/09/18 18:19 Dose: Not Given Levetiracetam (Keppra) 500 mg PO BID [facility] Last Admin: 04/09/18 18:16 Dose: 500 mg Montelukast Sodium (Singulair) 10 mg PO DAILY [facility] Last Admin: 04/09/18 09:41 Dose: 10 mg Pantoprazole Sodium (Protonix Ec Tab) 20 mg PO DAILY [facility] Last Admin: 04/09/18 09:42 Dose: 20 mg Ranolazine (Ranexa) 500 mg PO BID [facility] Last Admin: 04/09/18 18:16 Dose: 500 mg Rosuvastatin Calcium (Crestor) 10 mg PO [facility] Last Admin: 04/09/18 22:16 Dose: 10 mg Sertraline HCl (Zoloft) 50 mg PO DAILY [facility] Last Admin: 04/09/18 09:41 Dose: 50 mg Valproate Sodium (Depakene Cap) 250 mg PO QID [facility] Last Admin: 04/09/18 22:16 Dose: 250 mg Vitamin B Complex/Vit C/Folic Acid (Nephro-Courtney) 1 tab PO 0800 [facility] Last Admin: 04/10/18 08:28 Dose: 1 tab - Labs Labs: 04/08/18 10:08 04/08/18 10:08 PT 13.8 SECONDS (9.7-12.2) H 04/06/18 17:07 INR 1.3 04/06/18 17:07 APTT 37 SECONDS (21-34) H 04/06/18 17:07 Assessment and Plan - Assessment and Plan (Free Text) Assessment: CP Chronic CAD with CCS class 1-2 angina Chronic diastolic and mild systolic dysfunction HTN Uncontrolled DM ESRD on HD Aflutter RVR now in NSR with increased amio dose after EP. Plan: CP has resolved Aflutter paroxysmal Volume status: euvolemic: Known mild LV systolic dysfunction, restrictive diastolic dysfunction, mod-sev LVH minimal trop has been noted on multiple admissions: DDX microvascular dz, chronic CAD/demand ischemia; ESRD, AFlutter with RVR Given diffuse diabetic vasculopathy and small vessels: medical treatment only at this time :: control sugars :: cont Coreg, clonidine, Isosorbide, Ranexa :: suggest addition of cardizem 30 q8 and titrate to help rate control if needed :: statin for chronic CAD :: ASA or DAPT if can be tolerated :: cont amiodarone to help maintain NSR :: DVT prophylaxis :: Patient with hx of intolerance to AC due to GIB: this issues has been evaluated multiple times....reconsider if GIB risk can be reduced. :: discussed case with EP. DR. Faustin --> patient is a candidate for aflutter ablation now on amio 200 BID
[2018-04-10] MEDS: (Novolog) Insulin Aspart, Recombinant 100 u/ml 10 ml vial SC SCH (10:27)
[2018-04-10] MEDS: Pantoprazole 20 mg EC Tab PO SCH (10:27)
[2018-04-10] MEDS: Ranolazine 500 mg Extended Release Tablets PO SCH ×2 (10:27→17:45)
--- NOTE | 2018-04-10 17:16 | CP.PCM.PN ---
Subjective - Date & Time of Evaluation Date of Evaluation: 04/10/18 Time of Evaluation: 17:16 - Subjective Subjective: Nephrology Consultation Note: Assessment:stable SOB, chronic chest pain, A flutter Diabetic chronic Kidney Disease (E11.22) Hypertensive Chronic Kidney Disease (I12.0) End stage renal disease (N18.6) dependence on hemodialysis (Z99.2) (TTS) via AVF Anemia (D64.9), Hyperphosphatemia (E83.39), Secondary Hyperparathyroidism (E21.1 ), HTN (I12.0) CAD s/p CABG, diastolic CHF, parox A flutter/fib, intra-cardiac thrombus, hx of Heparin induced thrombocytopenia, hx of seizure, blindness Plan: plan for dialysis today as per TTS. Continue with Nephrovite 1 tab/day. last Hb 10.3-11.9 hence no HANNAH with HD for now Continue with phos binders home dose BP control with meds as ordered. norvasc lowered to 2.5 Glycemic control, Dialysis consistent diet Further work up/management as per primary team Dose meds/antibiotics for ESRD status. Avoid fleets enema/magnesium based laxatives. cardiology following Thanks for allowing me to participate in care of your patient. Will follow patient with you. Please call if any Qs. Dr Eric Temple Office: [phone] CC; Chest pain and SOB reason for consult: ESRD HPI: Pt is a 37 y/o transgender with hx of ESRD on hemodialysis (TTS) via permacath, chronic anemia, hyperphosphatemia, secondary hyperparathyroidism, Diabetes Mellitus, hypertension, CAD s/p CABG, diastolic CHF, pA flutter/fib, intra-cardiac thrombus, Heparin induced thrombocytopenia in past presented with complaints of SOB and chronic chest pain, palpitation which is better, c/o chronic shortness of breath but better ROS: All other negative except as in HPI. now better improved chronic chest pain , no GI symptoms. better SOB today Physical Examination: General Appearance: in no acute respiratory distress, co-operative . Vitals reviewed and noted as below Head; Atraumatic, normocephalic ENT: no ulcers no thrush. Tongue is midline. Oropharynx: no rash or ulcers. EYES: Pt is blind both eyes Neck; supple no lymphadenopathy, no thyromegaly or bruit Lungs: Normal respiratory rate/effort. Breath sounds bilateral decreased at bases Heart: Normal rate. s1s2 normal. No rub or gallop. Extremities: no edema. No varicose veins. has b/l BKA. Neurological: Patient is awake follow commands no focal deficit Skin: Warm and dry. Normal turgor. No rash. Palpitation: Normal elasticity for age Abdomen: Abdomen is soft. Bowel sounds +. There is no abdominal tenderness, no guarding/rigidity or organomegaly Psych: limited insight and has normal affect/mood MSK: no joint tenderness or swelling. Digits and nails normal, no deformity : kidney or bladder not palpable Access: permacath Labs/imaging reviewed. Past medical history, past surgical history, family history, social history, allergy reviewed and noted as below Family Hx: no hx of CKD. Non contributory Objective - Vital Signs/Intake and Output Vital Signs (last 24 hours): Temp Pulse Resp BP Pulse Ox 98.2 F 77 20 142/83 95 04/10/18 15:51 04/10/18 15:51 04/10/18 15:51 04/10/18 15:51 04/10/18 15:51 Intake and Output: 04/10/18 04/10/18 06:59 18:59 Intake Total 800 Balance 800 - Medications Medications: Current Medications Albuterol/Ipratropium (Duoneb 3 Mg/0.5 Mg (3 Ml) Ud) 3 ml INH RQ4 [facility] Last Admin: 04/10/18 16:42 Dose: Not Given Amiodarone HCl (Cordarone) 200 mg PO BID [facility] Last Admin: 04/10/18 10:26 Dose: Not Given Amlodipine Besylate (Norvasc) 2.5 mg PO DAILY [facility] Last Admin: 04/10/18 10:27 Dose: Not Given Aspirin (Aspirin) 325 mg PO DAILY [facility] Last Admin: 04/10/18 10:26 Dose: Not Given Calcium Carbonate (Oscal) 500 mg PO BID [facility] Last Admin: 04/10/18 10:27 Dose: Not Given Carvedilol (Coreg) 25 mg PO BID [facility] Last Admin: 04/10/18 10:26 Dose: Not Given Docusate Sodium (Colace) 100 mg PO BID PRN PRN Reason: Constipation Ergocalciferol (Drisdol 50,000 Intl Units Cap) 1 cap PO Q7D [facility] Last Admin: 04/07/18 18:13 Dose: 1 cap Heparin Sodium (Porcine) (Heparin) 3,700 units IVP TTS [facility] Last Admin: 04/10/18 11:38 Dose: 3,700 units Hydromorphone HCl (Dilaudid) 1 mg IVP Q6H PRN PRN Reason: Pain, moderate (4-7) Last Admin: 04/10/18 14:47 Dose: 1 mg Insulin Aspart (Novolog) 10 unit SC DAILY [facility] Last Admin: 04/10/18 10:27 Dose: Not Given Insulin Detemir (Levemir) 24 unit SC [facility] Last Admin: 04/09/18 22:17 Dose: 24 u Insulin Human Regular (Novolin R) 0 unit SC [facility] PRN Reason: Protocol Last Admin: 04/10/18 12:14 Dose: Not Given Isosorbide Mononitrate (Imdur) 60 mg PO DAILY [facility] Last Admin: 04/10/18 10:27 Dose: Not Given Lactulose (Enulose) 10 gm PO Q24H [facility] Last Admin: 04/09/18 18:19 Dose: Not Given Levetiracetam (Keppra) 500 mg PO BID [facility] Last Admin: 04/10/18 10:27 Dose: Not Given Montelukast Sodium (Singulair) 10 mg PO DAILY [facility] Last Admin: 04/10/18 10:28 Dose: Not Given Pantoprazole Sodium (Protonix Ec Tab) 20 mg PO DAILY [facility] Last Admin: 04/10/18 10:27 Dose: Not Given Ranolazine (Ranexa) 500 mg PO BID [facility] Last Admin: 04/10/18 10:27 Dose: Not Given Rosuvastatin Calcium (Crestor) 10 mg PO HS [facility] Last Admin: 04/09/18 22:16 Dose: 10 mg Sertraline HCl (Zoloft) 50 mg PO DAILY [facility] Last Admin: 04/10/18 10:28 Dose: Not Given Valproate Sodium (Depakene Cap) 250 mg PO QID [facility] Last Admin: 04/10/18 13:44 Dose: 250 mg Vitamin B Complex/Vit C/Folic Acid (Nephro-Courtney) 1 tab PO 0800 [facility] Last Admin: 04/10/18 08:28 Dose: 1 tab - Labs Labs: 04/08/18 10:08 08/07/18 10:08 PT 13.8 SECONDS (9.7-12.2) H 04/06/18 17:07 INR 1.3 04/06/18 17:07 APTT 37 SECONDS (21-34) H 04/06/18 17:07
--- NOTE | 2018-04-10 17:49 | CP.PCM.PN ---
Subjective - Date & Time of Evaluation Date of Evaluation: 04/10/18 Time of Evaluation: 17:46 - Subjective Subjective: no chest pain beter breathon will have procedure as out pt Objective - Vital Signs/Intake and Output Vital Signs (last 24 hours): Temp Pulse Resp BP Pulse Ox 98.2 F 77 20 142/83 95 04/10/18 15:51 04/10/18 15:51 04/10/18 15:51 04/10/18 15:51 04/10/18 15:51 Intake and Output: 04/10/18 04/10/18 06:59 18:59 Intake Total 800 Balance 800 - Medications Medications: Current Medications Albuterol/Ipratropium (Duoneb 3 Mg/0.5 Mg (3 Ml) Ud) 3 ml INH RQ4 [facility] Last Admin: 04/10/18 16:42 Dose: Not Given Amiodarone HCl (Cordarone) 200 mg PO BID [facility] Last Admin: 04/10/18 10:26 Dose: Not Given Amlodipine Besylate (Norvasc) 2.5 mg PO DAILY [facility] Last Admin: 04/10/18 10:27 Dose: Not Given Aspirin (Aspirin) 325 mg PO DAILY [facility] Last Admin: 04/10/18 10:26 Dose: Not Given Calcium Carbonate (Oscal) 500 mg PO BID [facility] Last Admin: 04/10/18 10:27 Dose: Not Given Carvedilol (Coreg) 25 mg PO BID [facility] Last Admin: 04/10/18 10:26 Dose: Not Given Docusate Sodium (Colace) 100 mg PO BID PRN PRN Reason: Constipation Ergocalciferol (Drisdol 50,000 Intl Units Cap) 1 cap PO Q7D [facility] Last Admin: 04/07/18 18:13 Dose: 1 cap Heparin Sodium (Porcine) (Heparin) 3,700 units IVP TTS [facility] Last Admin: 04/10/18 11:38 Dose: 3,700 units Hydromorphone HCl (Dilaudid) 1 mg IVP Q6H PRN PRN Reason: Pain, moderate (4-7) Last Admin: 04/10/18 14:47 Dose: 1 mg Insulin Aspart (Novolog) 10 unit SC DAILY [facility] Last Admin: 04/10/18 10:27 Dose: Not Given Insulin Detemir (Levemir) 24 unit SC HS [facility] Last Admin: 04/09/18 22:17 Dose: 24 u Insulin Human Regular (Novolin R) 0 unit SC [facility] PRN Reason: Protocol Last Admin: 04/10/18 12:14 Dose: Not Given Isosorbide Mononitrate (Imdur) 60 mg PO DAILY [facility] Last Admin: 04/10/18 10:27 Dose: Not Given Lactulose (Enulose) 10 gm PO Q24H [facility] Last Admin: 04/09/18 18:19 Dose: Not Given Levetiracetam (Keppra) 500 mg PO BID [facility] Last Admin: 04/10/18 10:27 Dose: Not Given Montelukast Sodium (Singulair) 10 mg PO DAILY [facility] Last Admin: 04/10/18 10:28 Dose: Not Given Pantoprazole Sodium (Protonix Ec Tab) 20 mg PO DAILY [facility] Last Admin: 04/10/18 10:27 Dose: Not Given Ranolazine (Ranexa) 500 mg PO BID [facility] Last Admin: 04/10/18 10:27 Dose: Not Given Rosuvastatin Calcium (Crestor) 10 mg PO [facility] Last Admin: 04/09/18 22:16 Dose: 10 mg Sertraline HCl (Zoloft) 50 mg PO DAILY [facility] Last Admin: 04/10/18 10:28 Dose: Not Given Valproate Sodium (Depakene Cap) 250 mg PO QID [facility] Last Admin: 04/10/18 13:44 Dose: 250 mg Vitamin B Complex/Vit C/Folic Acid (Nephro-Courtney) 1 tab PO 0800 [facility] Last Admin: 04/10/18 08:28 Dose: 1 tab - Labs Labs: 04/08/18 10:08 04/08/18 10:08 PT 13.8 SECONDS (9.7-12.2) H 04/06/18 17:07 INR 1.3 04/06/18 17:07 APTT 37 SECONDS (21-34) H 04/06/18 17:07 - Constitutional Appears: Non-toxic - Head Exam Head Exam: ATRAUMATIC - Eye Exam Eye Exam: Conjunctival injection Additional comments: legaly blind - ENT Exam ENT Exam: Mucous Membranes Dry - Neck Exam Neck Exam: Full ROM - Respiratory Exam Respiratory Exam: Decreased Breath Sounds - Cardiovascular Exam Cardiovascular Exam: REGULAR RHYTHM, +S1, +S2, +S4 - GI/Abdominal Exam GI & Abdominal Exam: Soft, Normal Bowel Sounds - Back Exam Back Exam: NORMAL INSPECTION - Neurological Exam Neurological Exam: Alert, Oriented x3 - Psychiatric Exam Psychiatric exam: Normal Mood - Skin Skin Exam: Pallor Assessment and Plan - Assessment and Plan (Free Text) Assessment: cad chf esrf dmid copd s/p at fib stable Plan: discarge home with home care
[2018-04-10] MEDS: Insulin Detemir 100 units/ml Vial (Levemir) SC SCH (21:43)
[2018-04-11] MEDS: Albuterol-Ipratrop 3 mg / 0.5 (3 ml) UD INH SCH ×5 (00:25→16:18)
[2018-04-11] MEDS: HYDROmorphone 1 mg/ml ISec IVP PRN ×2 (03:00→09:07)
[2018-04-11] MEDS: (Novolin R) Insulin Human Regular 100 units/ml vial SC SCH ×2 (07:38→12:27)
[2018-04-11 08:50] VITALS: TEMP 97.6; O2SAT 100
[2018-04-11] MEDS: Pantoprazole 20 mg EC Tab PO SCH (09:06)
[2018-04-11] MEDS: Ranolazine 500 mg Extended Release Tablets PO SCH (09:06)
[2018-04-11] MEDS: Multivitamin Vitamin B Complex (Nephro-Vite) Tab PO SCH (09:07)
[2018-04-11] MEDS: (Novolog) Insulin Aspart, Recombinant 100 u/ml 10 ml vial SC SCH (09:08)
--- NOTE | 2018-04-11 11:30 | CP.PCM.PN ---
Subjective - Date & Time of Evaluation Date of Evaluation: 04/11/18 Time of Evaluation: 11:29 - Subjective Subjective: PATIENT WAS ADMITTED FOR CHEST PAIN AND HYPERGLYCEMIA AAOX3 / ON 2 L NASAL CANULLA/ DENIES CHEST PAIN OR SOB NO SIGN OF DISTRESS NOTED Objective - Vital Signs/Intake and Output Vital Signs (last 24 hours): Temp Pulse Resp BP Pulse Ox 97.6 F 57 L 20 116/77 100 04/11/18 08:00 04/11/18 08:00 04/11/18 08:00 04/11/18 09:06 04/11/18 08:00 - Medications Medications: Current Medications Albuterol/Ipratropium (Duoneb 3 Mg/0.5 Mg (3 Ml) Ud) 3 ml INH RQ4 [facility] Last Admin: 04/11/18 08:05 Dose: 3 ml Amiodarone HCl (Cordarone) 200 mg PO BID [facility] Last Admin: 04/11/18 09:07 Dose: 200 mg Amlodipine Besylate (Norvasc) 2.5 mg PO DAILY [facility] Last Admin: 04/11/18 09:06 Dose: 2.5 mg Aspirin (Aspirin) 325 mg PO DAILY [facility] Last Admin: 04/11/18 09:06 Dose: 325 mg Calcium Carbonate (Oscal) 500 mg PO BID [facility] Last Admin: 04/11/18 09:07 Dose: 500 mg Carvedilol (Coreg) 25 mg PO BID [facility] Last Admin: 04/11/18 09:06 Dose: 25 mg Docusate Sodium (Colace) 100 mg PO BID PRN PRN Reason: Constipation Last Admin: 04/11/18 09:06 Dose: 100 mg Ergocalciferol (Drisdol 50,000 Intl Units Cap) 1 cap PO Q7D [facility] Last Admin: 04/07/18 18:13 Dose: 1 cap Heparin Sodium (Porcine) (Heparin) 3,700 units IVP TTS [facility] Last Admin: 04/10/18 11:38 Dose: 3,700 units Hydromorphone HCl (Dilaudid) 1 mg IVP Q6H PRN PRN Reason: Pain, moderate (4-7) Last Admin: 04/11/18 09:07 Dose: 1 mg Insulin Aspart (Novolog) 10 unit SC DAILY [facility] Last Admin: 04/11/18 09:08 Dose: Not Given Insulin Detemir (Levemir) 24 unit SC [facility] Last Admin: 04/10/18 21:43 Dose: 24 u Insulin Human Regular (Novolin R) 0 unit SC [facility] PRN Reason: Protocol Last Admin: 04/11/18 07:38 Dose: Not Given Isosorbide Mononitrate (Imdur) 60 mg PO DAILY [facility] Last Admin: 04/11/18 09:08 Dose: 60 mg Lactulose (Enulose) 10 gm PO Q24H [facility] Last Admin: 04/10/18 18:13 Dose: Not Given Levetiracetam (Keppra) 500 mg PO BID [facility] Last Admin: 04/11/18 09:08 Dose: 500 mg Montelukast Sodium (Singulair) 10 mg PO DAILY [facility] Last Admin: 04/11/18 09:06 Dose: 10 mg Pantoprazole Sodium (Protonix Ec Tab) 20 mg PO DAILY [facility] Last Admin: 04/11/18 09:06 Dose: 20 mg Ranolazine (Ranexa) 500 mg PO BID [facility] Last Admin: 04/11/18 09:06 Dose: 500 mg Rosuvastatin Calcium (Crestor) 10 mg PO [facility] Last Admin: 04/10/18 21:41 Dose: 10 mg Sertraline HCl (Zoloft) 50 mg PO DAILY [facility] Last Admin: 04/11/18 09:06 Dose: 50 mg Valproate Sodium (Depakene Cap) 250 mg PO QID [facility] Last Admin: 04/11/18 09:06 Dose: 250 mg Vitamin B Complex/Vit C/Folic Acid (Nephro-Courtney) 1 tab PO 0800 [facility] Last Admin: 04/11/18 09:07 Dose: 1 tab - Labs Labs: 04/08/18 10:08 04/08/18 10:08 PT 13.8 SECONDS (9.7-12.2) H 04/06/18 17:07 INR 1.3 04/06/18 17:07 APTT 37 SECONDS (21-34) H 04/06/18 17:07 Assessment and Plan - Assessment and Plan (Free Text) Assessment: PATIENT SEEN AND EXAMINED AT THE BEDSIDE 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 BELL IN THE OFFICE WITHIN 5-7 DAYS--CALL FOR APPT.\ FOLLOW UP WITH DR OLIVA ON SATURDAY OUT PATIENT ---CALL FOR APPOINTMENT ([phone]) ADDRESS YOUR AFLUTTER FOR POSS ABLATION -CONTINUE YOUR DIALYSIS USUAL---DON'T SKIP ANY DAYS!! -FOLLOW UP WITH YOUR KIDNEY DOCTOR IN THE OFFICE WITHIN 5-7 DAYS--CALL FOR APPT. -CONTINUE HOME MEDICATIONS USUAL. -NO NEW PRESCRIPTIONS. -FOR FURTHER CONCERNS OR QUESTIONS, CONTACT DR. BELL'S OFFICE. DISCUSS WITH PATIENT WHO AGREE AND VERBALIZED UNDERSTANDING
--- NOTE | 2018-04-11 12:31 | CP.PCM.PN ---
Subjective - Date & Time of Evaluation Date of Evaluation: 04/11/18 Time of Evaluation: 12:28 - Subjective Subjective: feels beter no palpitation no chest pain less sob Objective - Vital Signs/Intake and Output Vital Signs (last 24 hours): Temp Pulse Resp BP Pulse Ox 97.6 F 57 L 20 116/77 100 04/11/18 08:00 04/11/18 08:00 04/11/18 08:00 04/11/18 09:06 04/11/18 08:00 - Medications Medications: Current Medications Albuterol/Ipratropium (Duoneb 3 Mg/0.5 Mg (3 Ml) Ud) 3 ml INH RQ4 [facility] Last Admin: 04/11/18 11:38 Dose: Not Given Amiodarone HCl (Cordarone) 200 mg PO BID [facility] Last Admin: 04/11/18 09:07 Dose: 200 mg Amlodipine Besylate (Norvasc) 2.5 mg PO DAILY [facility] Last Admin: 04/11/18 09:06 Dose: 2.5 mg Aspirin (Aspirin) 325 mg PO DAILY [facility] Last Admin: 04/11/18 09:06 Dose: 325 mg Calcium Carbonate (Oscal) 500 mg PO BID [facility] Last Admin: 04/11/18 09:07 Dose: 500 mg Carvedilol (Coreg) 25 mg PO BID [facility] Last Admin: 04/11/18 09:06 Dose: 25 mg Docusate Sodium (Colace) 100 mg PO BID PRN PRN Reason: Constipation Last Admin: 04/11/18 09:06 Dose: 100 mg Ergocalciferol (Drisdol 50,000 Intl Units Cap) 1 cap PO Q7D [facility] Last Admin: 04/07/18 18:13 Dose: 1 cap Heparin Sodium (Porcine) (Heparin) 3,700 units IVP TTS [facility] Last Admin: 04/10/18 11:38 Dose: 3,700 units Hydromorphone HCl (Dilaudid) 1 mg IVP Q6H PRN PRN Reason: Pain, moderate (4-7) Last Admin: 04/11/18 09:07 Dose: 1 mg Insulin Aspart (Novolog) 10 unit SC DAILY [facility] Last Admin: 04/11/18 09:08 Dose: Not Given Insulin Detemir (Levemir) 24 unit SC HS [facility] Last Admin: 04/10/18 21:43 Dose: 24 u Insulin Human Regular (Novolin R) 0 unit SC [facility] PRN Reason: Protocol Last Admin: 04/11/18 12:27 Dose: 2 units Isosorbide Mononitrate (Imdur) 60 mg PO DAILY [facility] Last Admin: 04/11/18 09:08 Dose: 60 mg Lactulose (Enulose) 10 gm PO Q24H [facility] Last Admin: 04/10/18 18:13 Dose: Not Given Levetiracetam (Keppra) 500 mg PO BID [facility] Last Admin: 04/11/18 09:08 Dose: 500 mg Montelukast Sodium (Singulair) 10 mg PO DAILY [facility] Last Admin: 04/11/18 09:06 Dose: 10 mg Pantoprazole Sodium (Protonix Ec Tab) 20 mg PO DAILY [facility] Last Admin: 04/11/18 09:06 Dose: 20 mg Ranolazine (Ranexa) 500 mg PO BID [facility] Last Admin: 04/11/18 09:06 Dose: 500 mg Rosuvastatin Calcium (Crestor) 10 mg PO HS [facility] Last Admin: 04/10/18 21:41 Dose: 10 mg Sertraline HCl (Zoloft) 50 mg PO DAILY [facility] Last Admin: 04/11/18 09:06 Dose: 50 mg Valproate Sodium (Depakene Cap) 250 mg PO QID [facility] Last Admin: 04/11/18 09:06 Dose: 250 mg Vitamin B Complex/Vit C/Folic Acid (Nephro-Courtney) 1 tab PO 0800 [facility] Last Admin: 04/11/18 09:07 Dose: 1 tab - Labs Labs: 04/08/18 10:08 04/08/18 10:08 PT 13.8 SECONDS (9.7-12.2) H 04/06/18 17:07 INR 1.3 04/06/18 17:07 APTT 37 SECONDS (21-34) H 04/06/18 17:07 - Constitutional Appears: Non-toxic - Head Exam Head Exam: ATRAUMATIC - Eye Exam Eye Exam: Conjunctival injection - ENT Exam ENT Exam: Mucous Membranes Moist - Neck Exam Neck Exam: Normal Inspection - Respiratory Exam Respiratory Exam: Clear to Ausculation Bilateral - Cardiovascular Exam Cardiovascular Exam: REGULAR RHYTHM - GI/Abdominal Exam GI & Abdominal Exam: Soft, Normal Bowel Sounds - Rectal Exam Rectal Exam: NORMAL INSPECTION - Extremities Exam Additional comments: s/p bilateral ampution - Back Exam Back Exam: NORMAL INSPECTION - Neurological Exam Neurological Exam: Alert, Oriented x3 - Psychiatric Exam Psychiatric exam: Normal Affect - Skin Skin Exam: Pallor Assessment and Plan - Assessment and Plan (Free Text) Assessment: s/p chest pain at fib at fluter esrf dm Plan: [place] [facility] [place]
--- NOTE | 2018-04-11 13:41 | CP.PCM.PN ---
Subjective - Date & Time of Evaluation Date of Evaluation: 04/11/18 Time of Evaluation: 13:41 - Subjective Subjective: Nephrology Consultation Note: Assessment:stable SOB, chronic chest pain, A flutter Diabetic chronic Kidney Disease (E11.22) Hypertensive Chronic Kidney Disease (I12.0) End stage renal disease (N18.6) dependence on hemodialysis (Z99.2) (TTS) via AVF Anemia (D64.9), Hyperphosphatemia (E83.39), Secondary Hyperparathyroidism (E21.1 ), HTN (I12.0) CAD s/p CABG, diastolic CHF, parox A flutter/fib, intra-cardiac thrombus, hx of Heparin induced thrombocytopenia, hx of seizure, blindness Plan: plan for dialysis tomorrow as per TTS. Continue with Nephrovite 1 tab/day. last Hb 10.3-11.9 hence no HANNAH with HD for now Continue with phos binders home dose BP control with meds as ordered. norvasc lowered to 2.5 Glycemic control, Dialysis consistent diet Further work up/management as per primary team Dose meds/antibiotics for ESRD status. Avoid fleets enema/magnesium based laxatives. cardiology following Thanks for allowing me to participate in care of your patient. Will follow patient with you. Please call if any Qs. Dr Eric Temple Office: [phone] reason for consult: ESRD HPI: Pt is a 37 y/o transgender with hx of ESRD on hemodialysis (TTS) via permacath, chronic anemia, hyperphosphatemia, secondary hyperparathyroidism, Diabetes Mellitus, hypertension, CAD s/p CABG, diastolic CHF, pA flutter/fib, intra-cardiac thrombus, Heparin induced thrombocytopenia in past presented with complaints of SOB and chronic chest pain, palpitation which is better, c/o chronic shortness of breath but better ROS: All other negative except as in HPI. now better improved chronic chest pain , no GI symptoms. better SOB today Physical Examination: General Appearance: in no acute respiratory distress, co-operative . Vitals reviewed and noted as below Head; Atraumatic, normocephalic ENT: no ulcers no thrush. Tongue is midline. Oropharynx: no rash or ulcers. EYES: Pt is blind both eyes Neck; supple no lymphadenopathy, no thyromegaly or bruit Lungs: Normal respiratory rate/effort. Breath sounds bilateral decreased at bases Heart: Normal rate. s1s2 normal. No rub or gallop. Extremities: no edema. No varicose veins. has b/l BKA. Neurological: Patient is awake follow commands no focal deficit Skin: Warm and dry. Normal turgor. No rash. Palpitation: Normal elasticity for age Abdomen: Abdomen is soft. Bowel sounds +. There is no abdominal tenderness, no guarding/rigidity or organomegaly Psych: limited insight and has normal affect/mood MSK: no joint tenderness or swelling. Digits and nails normal, no deformity : kidney or bladder not palpable Access: permacath Labs/imaging reviewed. Past medical history, past surgical history, family history, social history, allergy reviewed and noted as below Family Hx: no hx of CKD. Non contributory Objective - Vital Signs/Intake and Output Vital Signs (last 24 hours): Temp Pulse Resp BP Pulse Ox 97.6 F 57 L 20 116/77 100 04/11/18 08:00 04/11/18 08:00 04/11/18 08:00 04/11/18 09:06 04/11/18 08:00 Intake and Output: 04/11/18 04/11/18 06:59 18:59 Intake Total 600 Balance 600 - Medications Medications: Current Medications Albuterol/Ipratropium (Duoneb 3 Mg/0.5 Mg (3 Ml) Ud) 3 ml INH RQ4 [facility] Last Admin: 04/11/18 11:38 Dose: Not Given Amiodarone HCl (Cordarone) 200 mg PO BID [facility] Last Admin: 04/11/18 09:07 Dose: 200 mg Amlodipine Besylate (Norvasc) 2.5 mg PO DAILY [facility] Last Admin: 04/11/18 09:06 Dose: 2.5 mg Aspirin (Aspirin) 325 mg PO DAILY [facility] Last Admin: 04/11/18 09:06 Dose: 325 mg Calcium Carbonate (Oscal) 500 mg PO BID [facility] Last Admin: 04/11/18 09:07 Dose: 500 mg Carvedilol (Coreg) 25 mg PO BID [facility] Last Admin: 04/11/18 09:06 Dose: 25 mg Docusate Sodium (Colace) 100 mg PO BID PRN PRN Reason: Constipation Last Admin: 04/11/18 09:06 Dose: 100 mg Ergocalciferol (Drisdol 50,000 Intl Units Cap) 1 cap PO Q7D [facility] Last Admin: 04/07/18 18:13 Dose: 1 cap Heparin Sodium (Porcine) (Heparin) 3,700 units IVP TTS [facility] Last Admin: 04/10/18 11:38 Dose: 3,700 units Hydromorphone HCl (Dilaudid) 1 mg IVP Q6H PRN PRN Reason: Pain, moderate (4-7) Last Admin: 04/11/18 09:07 Dose: 1 mg Insulin Aspart (Novolog) 10 unit SC DAILY [facility] Last Admin: 04/11/18 09:08 Dose: Not Given Insulin Detemir (Levemir) 24 unit SC HS [facility] Last Admin: 04/10/18 21:43 Dose: 24 u Insulin Human Regular (Novolin R) 0 unit SC [facility]S [facility] PRN Reason: Protocol Last Admin: 04/11/18 12:27 Dose: 2 units Isosorbide Mononitrate (Imdur) 60 mg PO DAILY [facility] Last Admin: 04/11/18 09:08 Dose: 60 mg Lactulose (Enulose) 10 gm PO Q24H [facility] Last Admin: 04/10/18 18:13 Dose: Not Given Levetiracetam (Keppra) 500 mg PO BID [facility] Last Admin: 04/11/18 09:08 Dose: 500 mg Montelukast Sodium (Singulair) 10 mg PO DAILY [facility] Last Admin: 04/11/18 09:06 Dose: 10 mg Pantoprazole Sodium (Protonix Ec Tab) 20 mg PO DAILY [facility] Last Admin: 04/11/18 09:06 Dose: 20 mg Ranolazine (Ranexa) 500 mg PO BID [facility] Last Admin: 04/11/18 09:06 Dose: 500 mg Rosuvastatin Calcium (Crestor) 10 mg PO HS [facility] Last Admin: 04/10/18 21:41 Dose: 10 mg Sertraline HCl (Zoloft) 50 mg PO DAILY [facility] Last Admin: 04/11/18 09:06 Dose: 50 mg Valproate Sodium (Depakene Cap) 250 mg PO QID [facility] Last Admin: 04/11/18 09:06 Dose: 250 mg Vitamin B Complex/Vit C/Folic Acid (Nephro-Courtney) 1 tab PO 0800 [facility] Last Admin: 04/11/18 09:07 Dose: 1 tab - Labs Labs: 04/08/18 10:08 04/08/18 10:08 PT 13.8 SECONDS (9.7-12.2) H 04/06/18 17:07 INR 1.3 04/06/18 17:07 APTT 37 SECONDS (21-34) H 04/06/18 17:07
[2018-04-11 16:21] VITALS: BP 117/73; PULSE 61
--- NOTE | 2018-04-11 17:25 | IP.NPCORE ---
Heart Failure Core Measure - Heart Failure Ejection Fraction: 40 % or Greater RAÚL Inhibitor Prescribed: No Contraindication/Reason for not providing: ESRD Beta-Andrew Prescribed: Carvedilol Angiotensin II Receptor Andrew Prescribed: No Contraindication/Reason for not providing: ESRD AnticoagulationTherapy for Atrial Fibrillation/Atrialflutter: No Contraindication/Reason for not providing: F/U WITH CRUTCH MAKER OUT PATIENT Aldosterone Antagonist Prescribed: No Contraindication/Reason for not providing: ESRD Hydralazine Nitrate Prescribed: No Contraindication/Reason for not providing: EF IS GREATER THAN 40 Implantable Cardioverter Defibrillator Therapy: No Contraindication/Reason for not providing: EF IS GREATER THAN 40 Cardiac Resynchronization Therapy Prescribed: No Contraindication/Reason for not providing: EF IS GREATER THAN 40 - Follow up Will be discharged to: Home Follow Up Date (must be within 7 days from discharge): 04/15/18 Follow Up Time: 09:00
--- NOTE | 2018-04-11 19:34 | CARD ---
APPROVED REPORT Date of service: 04/07/2018 EKG Measurement Heart [id number] <Conclusion> Normal sinus rhythm Possible Inferior infarct, age undetermined ST & T wave abnormality, consider lateral ischemia Abnormal ECG
--- NOTE | 2018-04-19 10:05 | DS ---
Copied To: Sybil Li MD Attending MD: Sybil Li MD HISTORY OF PRESENT ILLNESS: The patient came into the emergency room complaining of chest pain and palpitation, and he was found to be in atrial flutter and fibrillation. He has also cardiac enzymes positive, and he is known to have very bad coronary artery disease and diabetes mellitus. At the time of admission, his sugar was 671, and he has end-stage renal failure, on dialysis. His hemoglobin was 11.9. The patient was seen by Cardiology, Dr. Escobar. He was on telemetry; and his medications were nebulizer treatment, amiodarone, Norvasc, aspirin, Coreg twice a day and vitamin D. He was on Heparin. He has isosorbide mononitrate. He has Keppra for seizure disorder. He is on Singulair for asthma, pantoprazole, Ranexa, and Crestor. Zoloft for depression and folic acid. He has anemia, so he was taking vitamins. His heart rate improved. He was feeling better and stable and no more palpitation or chest pain, and he was discharged on 04/11/2018, and he was planned to come back another day to [facility] for ablation. FINAL DIAGNOSES: Acute atrial fibrillation and flutter; coronary artery disease, severe; congestive heart failure; end-stage renal failure; diabetes mellitus, insulin dependent, uncontrolled. Followup in my office. Sybil Li MD
== END 2018-04-11 16:25 | disposition home or self-care (01) | DRG 544 ==
LOC: C.ER 16:06 → C.9E 20:26 → C.5S 22:27
PROVIDERS: ADMIT Internal Medicine; ATTEND Internal Medicine
PROC: 5A1D70Z Performance of Urinary Filtration, Intermittent, Less than 6 Hours Per Day (ICD-10-PCS; principal; 2018-04-07)
PROC: 5A1D70Z Performance of Urinary Filtration, Intermittent, Less than 6 Hours Per Day (ICD-10-PCS; 2018-04-08)
PROC: 5A1D70Z Performance of Urinary Filtration, Intermittent, Less than 6 Hours Per Day (ICD-10-PCS; 2018-04-10)
DX: I48.92 Unspecified atrial flutter (principal); I50.32 Chronic diastolic (congestive) heart failure; E11.22 Type 2 diabetes mellitus with diabetic chronic kidney disease; E11.65 Type 2 diabetes mellitus with hyperglycemia; I13.2 Hypertensive heart and chronic kidney disease with heart failure and with stage 5 chronic kidney disease, or end stage renal disease; J44.9 Chronic obstructive pulmonary disease, unspecified; N18.6 End stage renal disease; E03.9 Hypothyroidism, unspecified; D64.9 Anemia, unspecified; F02.80 Dementia in other diseases classified elsewhere, unspecified severity, without behavioral disturbance, psychotic disturbance, mood disturbance, and anxiety; G89.29 Other chronic pain; H54.8 Legal blindness, as defined in USA; I25.119 Atherosclerotic heart disease of native coronary artery with unspecified angina pectoris; N25.81 Secondary hyperparathyroidism of renal origin; Z86.73 Personal history of transient ischemic attack (TIA), and cerebral infarction without residual deficits; Z89.511 Acquired absence of right leg below knee; Z89.512 Acquired absence of left leg below knee; Z95.1 Presence of aortocoronary bypass graft; Z99.2 Dependence on renal dialysis; I48.91 Unspecified atrial fibrillation; F64.9 Gender identity disorder, unspecified; G30.9 Alzheimer's disease, unspecified

== ENCOUNTER 2018-04-26 00:13 | Inpatient (IN) | payer OTHER ==
[2018-04-26 00:14] VITALS: BMI 18.8
--- NOTE | 2018-04-26 00:30 | C.PDOC ---
History Of Present Illness Patient presents to the ER with a complaint of chest pain and palpitations. 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 Patient is a Saturday, , Saturday dialysis patient. He is currently speaking in complete sentences. Denies nausea, vomiting, fever, or chills. Time Seen by Provider: 04/26/18 00:28 Chief Complaint (Nursing): Chest Pain History Per: Patient History/Exam Limitations: no limitations Onset/Duration Of Symptoms: Hrs Current Symptoms Are (Timing): Still Present Severity: Moderate Pain Scale Rating Of: 4 Quality: Other (Unable to describe) Associated Symptoms: Other (Palpitations). denies: Nausea, Dyspnea Modifying Factors: None Exacerbating Factors: None Alleviating Factors: None Nitro Therapy Administered: 3, Per EMS, Per Own Supply, Partial Relief Recent travel outside of the [place]: No Additional History Per: Patient Past Medical History Reviewed: Historical Data, Nursing Documentation, Vital Signs Vital Signs: Last Vital Signs Temp 98.2 F 04/26/18 00:20 Pulse 123 H 04/26/18 01:41 Resp 23 04/26/18 01:41 BP 166/99 H 04/26/18 01:41 Pulse Ox 100 04/26/18 01:41 - Medical History PMH: Alzheimer's Disease, Anemia, Anxiety, Arthritis, Asthma, Atrial Fibrillation, Bronchitis, CAD, Cardia Arrhythmia, CHF, COPD, CVA, Depression, Diabetes, Deep Vein Thrombosis, Gastritis, Gastrointestinal Ulcer, Gall Bladder Disease, HTN, Hypercholesterolemia, Hypothyroidism, Pneumonia, End Stage Renal Disease, Chronic Kidney Disease, Seizures Denies: Hyperthyroidism, Kidney Stones, Sexually Transmitted Disease Surgical History: CABG (12/2009), Cholecystectomy (2011), Coronary Stent - [facility] (04/06/18) ABDOMINAL WALL SINOGRAM (12/31/13) C.A.T. SCAN OF ABDOMEN (10/31/13) CENTRAL VENOUS CATHETER PLACEMENT WITH GUIDANCE (02/10/15) CHANGE OTHER DEVICE IN TRUNK SUBCU/FASCIA, SOLUTIONS OPERATOR APPROACH (06/01/17) DILATE R ANT TIB ART W DRUG-ELUT INTRALUM, PERC (08/12/15) DILATION OF LEFT FEMORAL ARTERY, PERCUTANEOUS APPROACH (07/04/16) DILATION OF RIGHT FEMORAL ARTERY, PERCUTANEOUS APPROACH (08/12/15) DILATION OF RIGHT POPLITEAL ARTERY, PERCUTANEOUS APPROACH (08/12/15) DX ULTRASOUND-HEART (01/05/13) ENTERAL INFUSION OF CONCENTRATED NUT. SUBSTANCES (06/28/13) EXCIS DEBRIDE OF WOUND, INFECT, OR BURN (08/03/14) EXCISION OF STOMACH, ENDO, DIAGN (03/03/17) EXTIRPATION OF MATTER FROM L FEM ART, PERC APPROACH (07/04/16) EXTIRPATION OF MATTER FROM R FEM ART, PERC APPROACH (08/12/15) EXTIRPATION OF MATTER FROM R POPL ART, PERC APPROACH (08/12/15) FLUOROSCOPY OF L LOW EXTREM ART USING L OSM CONTRAST (08/12/15) FLUOROSCOPY OF R LOW EXTREM ART USING L OSM CONTRAST (08/12/15) FLUOROSCOPY OF RIGHT JUGULAR VEINS, GUIDANCE (06/01/17) FREE SKIN GRAFT NEC (08/03/14) HEAD SOFT TISS X-RAY NEC (04/15/13) HEMODIALYSIS (04/28/15) INCIS W REM OF FORIEGN BODY OR DEV FROM SKIN & SUBCUT TISSUE (08/08/13) INSERT INFUSION DEV IN R INT JUGULAR VEIN, PERC (06/01/17) INSERTION OF INFUSION DEV INTO R SUBCLAV VEIN, PERC APPROACH (01/19/16) INSERTION OF INFUSION DEV INTO SUP VENA CAVA, PERC APPROACH (01/07/18) INSPECTION OF UPPER INTESTINAL TRACT, ENDO (03/03/17) INTRODUCE OF OTH THROMBOLYTIC INTO PERIPH ART, PERC APPROACH (08/12/15) LAPAROSCOPIC CHOLECYSTECTOMY (09/21/13) LOC EXC LES METATAR/TAR (06/01/14) PACKED CELL TRANSFUSION (06/01/14) PERCUTAN LIVER ASPIRAT (12/31/13) PERFORMANCE OF URINARY FILTRATION, MULTIPLE (05/17/17) PERFORMANCE OF URINARY FILTRATION, SINGLE (12/18/16) SKIN & SUBQ INCISION NEC (10/24/14) TETANUS TOXOID ADMINIST (06/13/14) TRANSFUSE NONAUT RED BLOOD CELLS IN PERIPH VEIN, PERC (04/09/17) ULTRASONOGRAPHY OF RIGHT AND LEFT HEART (04/09/17) ULTRASONOGRAPHY OF SUPERIOR VENA CAVA, GUIDANCE (01/07/18) VENOUS CATHETERIZATION FOR RENAL DIALYSIS (08/08/13) VENOUS CATHETERIZATION NEC (08/29/13) Family History: States: No Known Family Hx - Social History Hx Tobacco Use: No Hx Alcohol Use: No Hx Substance Use: No - Immunization History Hx Tetanus Toxoid Vaccination: Yes Hx Influenza Vaccination: Yes Hx Pneumococcal Vaccination: Yes Review Of Systems Constitutional: Negative for: Fever, Chills Cardiovascular: Positive for: Chest Pain, Palpitations Respiratory: Negative for: Cough, Shortness of Breath Gastrointestinal: Negative for: Nausea, Vomiting, Abdominal Pain Musculoskeletal: Negative for: Neck Pain Skin: Negative for: Rash, Jaundice, Bruising Neurological: Negative for: Weakness, Numbness Physical Exam - Physical Exam Appears: Non-toxic Skin: Warm, Dry Head: Normacephalic Eye(s): bilateral: Other (Blind) Oral Mucosa: Moist Neck: Supple Chest: No Tenderness, Other (Dialysis port to right chest) Cardiovascular: Rhythm Regular Respiratory: No Rales, Rhonchi (Scattered), No Wheezing Gastrointestinal/Abdominal: Soft, No Tenderness Back: Normal Inspection Extremity: Other (Nonfunctional left arm graft, Bilateral BKA) Neurological/Psych: Oriented x3 Gait: Unable To Assess ED Course And Treatment - Laboratory Results Result Diagrams: 04/26/18 01:02 04/26/18 01:02 ECG: Interpreted By Me, Viewed By Me ECG Rhythm: Atrial Flutter (120 with variable block), Nonspecific Changes (lvh, unchanged from 04/08/18) Pulse Ox Interpretation: Normal - Radiology CXR: Interpreted by Me, Viewed By Me CXR Interpretation: Yes: Cardiomegaly, Other (hd shunt r chest, sternotomy wires , mild vasc congestion). No: Infiltrates, Fracture Progress Note: Blood work and CXR ordered. Disposition Discussed With : Sybil Li Comment: accepted the pt on her service and took over the care at 3:05 AM Doctor Will See Patient In The: Hospital Counseled Patient/Family Regarding: Studies Performed, Diagnosis - Disposition Disposition: HOSPITALIZED Disposition Time: 00:29 Condition: FAIR Forms: [facility] (Japanese) - POA Present On Arrival: Poor Glycemic Control - Clinical Impression Clinical Impression: Dyspnea, CHF exacerbation, Uncontrolled diabetes mellitus, NSTEMI (non-ST elevated myocardial infarction), Blind in both eyes - Scribe Statement The provider has reviewed the documentation as recorded by the Scribe Preston Leavitt All medical record entries made by the Scribe were at my direction and personally dictated by me. I have reviewed the chart and agree that the record accurately reflects my personal performance of the history, physical exam, medical decision making, and the department course for this patient. I have also personally directed, reviewed, and agree with the discharge instructions and disposition. Decision To Admit - Pt Status Changed To: Hospital Disposition Of: Inpatient - Admit Certification Admit to Inpatient:: After my assessment, the patient will require hospitalization for at least two midnights. This is because of the severity of symptoms shown, intensity of services needed, and/or the medical risk in this patient being treated as an outpatient. - InPatient: Physician Admission Certification: I certify that this patient requires 2 or more midnights of care for the following reason:: Upon provider reevaluation patient is feeling better, is medically stable, and requires no further treatment in the ED at this time. Patient will be discharged home with Rx for . Counseling was provided and all questions were answered regarding diagnosis and need for follow up with the referred clinic. There is agreement to discharge plan. Return if symptoms persist or worsen. - . Bed Request Type: Telemetry Admitting Physician: Sybil Li Patient Diagnosis: Dyspnea, CHF exacerbation, Uncontrolled diabetes mellitus, NSTEMI (non-ST elevated myocardial infarction), Blind in both eyes
[2018-04-26 01:06] LABS: BASO # 0.1 K/uL (0.0-0.2); EOS # 0.3 K/uL (0.0-0.7); HEMOGLOBIN 10.8 g/dL (12.0-18.0); LYMPH # 2.6 K/uL (1.0-4.3); LYMPH % 20.1 % (20.0-40.0); MEAN CELL VOLUME 90.1 fL (80.0-94.0); MEAN CORPUSCULAR HEMOGLOBIN 28.8 pg (27.0-31.0); MEAN CORPUSCULAR HGB CONC 31.9 g/dL (33.0-37.0); MEAN PLATELET VOLUME 9.8 fL (7.2-11.7); MONO % 7.2 % (0.0-10.0); NEUT # 9.2 K/uL (1.8-7.0); NEUT % 69.7 % (50.0-75.0); NRBC % 0.1 % (0.0-2.0); RBC 3.76 Mil/uL (4.40-5.90); RED CELL DISTRIBUTION WIDTH 18.8 % (11.5-14.5); WHITE BLOOD COUNT 13.1 K/uL (4.8-10.8)
[2018-04-26 01:13] LABS: INR 1.2; PROTHROMBIN TIME 13.4 SECONDS (9.7-12.2)
[2018-04-26 01:36] LABS: ALB/GLOB RATIO 1.3 (1.0-2.1); ALBUMIN 4.3 g/dL (3.5-5.0); CALCIUM 9.6 mg/dl (8.6-10.4); TROPONIN I 0.129 ng/mL (0.00-0.120)
[2018-04-26] MEDS ORDERED: (Lantus) Insulin Glargine, Recombinant SC ONE (03:29)
[2018-04-26] MEDS ORDERED: (Lantus) Insulin Glargine, Recombinant SC STA (03:36)
[2018-04-26] MEDS: HYDROmorphone 1 mg/ml ISec IVP PRN ×3 (04:21→18:13)
[2018-04-26] MEDS ORDERED: Albuterol-Ipratrop 3 mg / 0.5 (3 ml) UD IH SCH (06:00)
[2018-04-26] MEDS: Albuterol-Ipratrop 3 mg / 0.5 (3 ml) UD IH SCH ×5 (07:57→23:46)
[2018-04-26] MEDS: (Novolog) Insulin Aspart, Recombinant 100 u/ml 10 ml vial SC SCH ×4 (08:08→21:32)
[2018-04-26] MEDS: Multivitamin Vitamin B Complex (Nephro-Vite) Tab PO SCH (08:08)
--- NOTE | 2018-04-26 10:09 | RAD ---
Date of service: 04/26/2018 PROCEDURE: CHEST RADIOGRAPH, 1 VIEW HISTORY: chest pain COMPARISON: Portable chest 04/06/2018. FINDINGS: LUNGS: No definite airspace disease. PLEURA: Limited left pulmonary fibrosis favored over trace pleural effusion. No pleural effusion at the right. No pneumothorax bilaterally. CARDIOVASCULAR: Mild cardiomegaly and pulmonary vascular congestion are identified with congestive changes slightly increased in the interval prominent right central venous dialysis catheter unchanged in position. Sternotomy wires reiterated. OSSEOUS STRUCTURES: No significant abnormalities. VISUALIZED UPPER ABDOMEN: Surgical clips reiterated right upper quadrant abdomen. OTHER FINDINGS: None. IMPRESSION: Mild pulmonary vascular congestion with stable cardiomegaly. Prior dialysis catheter unchanged. Trace left pleural fibrosis favored over effusion.
--- NOTE | 2018-04-26 10:29 | PCM.RRT ---
[employer]ARN [employer] Nurses Assessment - Situation Date: 04/26/18 Time CAR BARN LABORER was called: 10:29 CAR BARN LABORER Responder Arrival Time:: 10:30 CAR BARN LABORER Location:: 3D Dialysis [employer] Reason for Call: Chest Pain - IV IV Inserted during CAR BARN LABORER?: No - Neurological Status (Select all that apply): Alert, Responsive, Oriented, Verbal, Follows Commands - Constitutional Appears: Non-toxic, No Acute Distress - Head Head Exam: ATRAUMATIC, NORMOCEPHALIC - Respiratory Exam Respiratory Exam: Clear to Ausculation Bilateral. absent: Rales, Rhonchi, Wheezes - Cardiovascular Exam Cardiovascular Exam: Tachycardia, Irregular Rhythm, +S1, +S2 - GI/Abdominal Exam GI & Abdominal Exam: Soft. absent: Tenderness - Neurological Exam Neurological Exam: Alert, Awake, Oriented x3 Plan - Assessment of Findings&Treatment Plan 37 year old with PMHx of ESRD and a fib has CAR BARN LABORER called in dialysis unit for tachycardia and chest pain. CAR BARN LABORER called by nurse. Patient was brought down to dialysis unit but dialysis was not started yet due to tachycardia. Patient was given cardizem 10 mg stat IV which brought HR down to 59 but then HR returned to 130s. CAR BARN LABORER was called at this point. BP at time of CAR BARN LABORER called was 127/85 and HR was 134. Patient complained of substernal chest pain that he described as pressure sensation. Patient was then given additional dose of cardizem 15 mg IVP and Digoxin .25 mg IVP. HR after these medications was 90s and BP 130/81. Pt started on cardizem 30 mg QID po. EKG and STONE ordered. Cardio, Dr. Tavares was called. Per Dr. Tavares, pt is on oral AC with Eliquis 2.5 mg BID for a fib and thrombus. He recommends restarting pt on Eliquis 2.5 mg po bid. Spoke with Dr. Li and made aware of CAR B[employer]ER. She agrees with plan to restart Eliquis 2.5 mg po bid.
[2018-04-26] MEDS ORDERED: Digoxin 500 mcg/2ml (0.5 mg/2ml) Inj IVP ONE (10:34)
[2018-04-26 11:32] LABS: CK-MB 0.47 ng/mL (0.0-3.38); TROPONIN I 0.098 ng/mL (0.00-0.120)
[2018-04-26 11:40] VITALS: PULSE 110
[2018-04-26] MEDS ORDERED: Dextrose 50% SYRINGE Inj (50 ml) IV STA (11:50)
--- NOTE | 2018-04-26 11:58 | CP.PCM.HP ---
History of Present Illness - History of Present Illness History of Present Illness: pt came in for chest pain and palpitation rapid at flutter had ropid responsce in the ffoor treated and beter Present on Admission - Present on Admission Any Indicators Present on Admission: No Review of Systems - Review of Systems Systems not reviewed;Unavailable: Acuity of Condition, Respiratory Distress - Constitutional Constitutional: Fatigue - Cardiovascular Cardiovascular: Chest Pain, Chest Pain at Rest, Diaphoresis, Dyspnea, Dyspnea on Exertion, Irregular Heart Rhythm, Palpitations, Rapid Heart Rate - Respiratory Respiratory: Dyspnea - Gastrointestinal Gastrointestinal: Cramping - Genitourinary Genitourinary: As Per HPI - Reproductive: 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 - Musculoskeletal Additional comments: bilateral amputation - Integumentary Integumentary: As Per HPI - Neurological Neurological: Loss of Vision, Sensory Deficit, Weakness - Psychiatric Psychiatric: Depression - Endocrine Endocrine: Cold Intolorance Additional Comments: dmid - Hematologic/Lymphatic Hematologic: Easy Bleeding Past Patient History - Infectious Disease Hx of Infectious Diseases: None - Tetanus Immunizations Tetanus Immunization: >10 years Ago - Past Medical History & Family History Past Medical History?: Yes - Past Social History Smoking Status: Never Smoked - CARDIAC Hx Atrial Fibrillation: Yes Hx Cardia Arrhythmia: Yes Hx Congestive Heart Failure: Yes Hx Hypercholesterolemia: Yes Hx Hypertension: Yes - PULMONARY Hx Asthma: Yes Hx Bronchitis: Yes Hx Chronic Obstructive Pulmonary Disease (COPD): Yes Hx Pneumonia: Yes - NEUROLOGICAL Hx Alzheimer's Disease: Yes Hx Seizures: Yes - HEENT Hx HEENT Problems: Yes Hx Blind: Yes (legally blind) Hx Cataracts: Yes - RENAL Date of Last Dialysis Treatment: 04/24/18 - ENDOCRINE/METABOLIC Hx Hyperthyroidism: No Hx Hypothyroidism: Yes - HEMATOLOGICAL/ONCOLOGICAL Hx Anemia: Yes - INTEGUMENTARY Hx Dermatological Problems: No - MUSCULOSKELETAL/RHEUMATOLOGICAL Hx Falls: Yes - GASTROINTESTINAL Hx Gall Bladder Disease: Yes Hx Gastritis: Yes - GENITOURINARY/GYNECOLOGICAL Hx Sexually Transmitted Disorders: No - PSYCHIATRIC Hx Substance Use: No - SURGICAL HISTORY Hx Amputation: Yes Hx Cholecystectomy: Yes (2011) 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/2009) Hx Coronary Stent: Yes - ANESTHESIA Hx Anesthesia: Yes Hx Anesthesia Reactions: No Hx Malignant Hyperthermia: No Meds Allergies/Adverse Reactions: Allergies Allergy/AdvReac Type Severity Reaction Status Date / Time acetaminophen [From Percocet] Allergy RASH Verified 04/26/18 00:31 atenolol Allergy RASH Verified 04/26/18 00:31 digoxin Allergy RASH Verified 04/26/18 00:31 milk Allergy ITCHING Verified 04/26/18 00:31 morphine Allergy RASH Verified 04/26/18 00:31 oxycodone HCl [From Percocet] Allergy RASH Verified 04/26/18 00:31 Physical Exam - Constitutional Appears: In Acute Distress - Head Exam Head Exam: ATRAUMATIC - Eye Exam Eye Exam: Conjunctival injection Additional comments: blind - ENT Exam ENT Exam: Mucous Membranes Moist - Neck Exam Neck exam: Positive for: Full Rom - Respiratory Exam Respiratory Exam: Decreased Breath Sounds, Rales - Cardiovascular Exam Cardiovascular Exam: Irregular Rhythm, +S1, +S2, +S4 - GI/Abdominal Exam GI & Abdominal Exam: Normal Bowel Sounds - Rectal Exam Rectal Exam: NORMAL INSPECTION - Exam Additional comments: ambiguas genitalia - Extremities Exam Additional comments: bilat amputation - Back Exam Back exam: CVA tenderness (L) - Neurological Exam Neurological exam: Oriented x3 - Psychiatric Exam Psychiatric exam: Normal Affect - Skin Skin Exam: Pallor Results - Vital Signs Recent Vital Signs: Last Vital Signs Temp 97.4 F L 04/26/18 07:35 Pulse 130 H 04/26/18 09:27 Resp 18 04/26/18 08:26 BP 121/79 04/26/18 09:27 Pulse Ox 100 04/26/18 08:26 - Labs Result Diagrams: 04/26/18 01:02 04/26/18 01:02 Labs: Laboratory Results - last 24 hr 04/26/18 04/26/18 04/26/18 01:02 01:02 01:02 WBC 13.1 H RBC 3.76 L Hgb 10.8 L Hct 33.9 L MCV 90.1 MCH 28.8 MCHC 31.9 L RDW 18.8 H Plt Count 270 MPV 9.8 Neut % (Auto) 69.7 Lymph % (Auto) 20.1 [place] % (Auto) 7.2 Eos % (Auto) 2.0 Baso % (Auto) 1.0 Neut # (Auto) 9.2 H Lymph # (Auto) 2.6 [place] # (Auto) 1.0 H Eos # (Auto) 0.3 Baso # (Auto) 0.1 PT 13.4 H INR 1.2 APTT 24 Sodium 137 Potassium 4.6 Chloride 96 L Carbon Dioxide 24 Anion Gap 22 H BUN 51 H Creatinine 4.6 H Est GFR ( Amer) 18 Est GFR (Non-Af Amer) 15 POC Glucose (mg/dL) Random Glucose 425 H* D Calcium 9.6 Total Bilirubin 0.6 AST 19 ALT 14 L Alkaline Phosphatase 234 H D Total Creatine Kinase CK-MB (Mass) Troponin I 0.1290 H* NT-Pro-B Natriuret Pep 358489 H Total Protein 7.7 Albumin 4.3 Globulin 3.4 Albumin/Globulin Ratio 1.3 Lipase 113 04/26/18 04/26/18 06:39 10:04 WBC RBC Hgb Hct MCV MCH MCHC RDW Plt Count MPV Neut % (Auto) Lymph % (Auto) [place] % (Auto) Eos % (Auto) Baso % (Auto) Neut # (Auto) Lymph # (Auto) [place] # (Auto) Eos # (Auto) Baso # (Auto) PT INR APTT Sodium Potassium Chloride Carbon Dioxide Anion Gap BUN Creatinine Est GFR ( Amer) Est GFR (Non-Af Amer) POC Glucose (mg/dL) 316 H Random Glucose Calcium Total Bilirubin AST ALT Alkaline Phosphatase Total Creatine Kinase 29 L CK-MB (Mass) 0.47 Troponin I 0.0980 NT-Pro-B Natriuret Pep Total Protein Albumin Globulin Albumin/Globulin Ratio Lipase Assessment & Plan - Assessment and Plan (Free Text) Assessment: ac chest pain severe cad chf ac recurent at fluter dmid uncontroled Plan: admit as per orders - Date & Time Date: 04/26/18 Time: 12:05
[2018-04-26] MEDS ORDERED: Ergocalciferol 50,000 Intl Units Cap PO SCH (12:15)
--- NOTE | 2018-04-26 14:27 | CP.PCM.CON ---
History of Present Illness - History of Present Illness History of Present Illness: Well known patient Multiple admissions Presents with acute on chronic CP and palpitation Known AFIB/Flutter and was scheduled for aflutter ablation recently but deferred due to finding of clot around the permacath right atrium : started on eliquis 2.5 BID but unlikely taking CArdiac HX; 1. Severe multivessel CAD, prior CABG and PCI nd residual small vessel severe diabetic disease not amenable to PCI: on medical therapy 2. Acute on chronic mild-mod systolic and Grade 3 diastolic dysfunction 3. AFLUTTER/FIB paroxysmal: maintained on amiodarone 3. B/L BKA, ESRD, on HD, legally blind, Kleinfelters syndrome Past Patient History - Infectious Disease Hx of Infectious Diseases: None - Tetanus Immunizations Tetanus Immunization: >10 years Ago - Past Medical History & Family History Past Medical History?: Yes - Past Social History Smoking Status: Never Smoked - CARDIAC Hx Atrial Fibrillation: Yes Hx Cardia Arrhythmia: Yes Hx Congestive Heart Failure: Yes Hx Hypercholesterolemia: Yes Hx Hypertension: Yes - PULMONARY Hx Asthma: Yes Hx Bronchitis: Yes Hx Chronic Obstructive Pulmonary Disease (COPD): Yes Hx Pneumonia: Yes - NEUROLOGICAL Hx Alzheimer's Disease: Yes Hx Seizures: Yes - HEENT Hx HEENT Problems: Yes Hx Blind: Yes (legally blind) Hx Cataracts: Yes - RENAL Date of Last Dialysis Treatment: 04/24/18 - ENDOCRINE/METABOLIC Hx Hyperthyroidism: No Hx Hypothyroidism: Yes - HEMATOLOGICAL/ONCOLOGICAL Hx Anemia: Yes - INTEGUMENTARY Hx Dermatological Problems: No - MUSCULOSKELETAL/RHEUMATOLOGICAL Hx Falls: Yes - GASTROINTESTINAL Hx Gall Bladder Disease: Yes Hx Gastritis: Yes - GENITOURINARY/GYNECOLOGICAL Hx Sexually Transmitted Disorders: No - PSYCHIATRIC Hx Substance Use: No - SURGICAL HISTORY Hx Amputation: Yes Hx Cholecystectomy: Yes (2011) 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/2009) Hx Coronary Stent: Yes - ANESTHESIA Hx Anesthesia: Yes Hx Anesthesia Reactions: No Hx Malignant Hyperthermia: No Meds Allergies/Adverse Reactions: Allergies Allergy/AdvReac Type Severity Reaction Status Date / Time acetaminophen [From Percocet] Allergy RASH Verified 04/26/18 00:31 atenolol Allergy RASH Verified 04/26/18 00:31 digoxin Allergy RASH Verified 04/26/18 00:31 milk Allergy ITCHING Verified 04/26/18 00:31 morphine Allergy RASH Verified 08/25/18 00:31 oxycodone HCl [From Percocet] Allergy RASH Verified 04/26/18 00:31 - Medications Medications: Current Medications Albuterol/Ipratropium (Duoneb 3 Mg/0.5 Mg (3 Ml) Ud) 3 ml IH Q4H [facility] Albuterol/Ipratropium (Duoneb 3 Mg/0.5 Mg (3 Ml) Ud) 3 ml IH Q4 [facility] Last Admin: 04/26/18 11:42 Dose: Not Given Amiodarone HCl (Cordarone) 200 mg PO DAILY [facility] Last Admin: 04/26/18 12:24 Dose: 200 mg Amlodipine Besylate (Norvasc) 10 mg PO DAILY [facility] Last Admin: 04/26/18 09:29 Dose: Not Given Apixaban (Eliquis) 2.5 mg PO BID [facility] Aspirin (Aspirin Chewable) 81 mg PO DAILY [facility] Last Admin: 04/26/18 12:24 Dose: 81 mg Calcitriol (Rocaltrol) 0.25 mcg PO TTS [facility] Carvedilol (Coreg) 12.5 mg PO BID [facility] Last Admin: 04/26/18 09:27 Dose: 12.5 mg Diltiazem HCl (Cardizem) 30 mg PO QID [facility] Last Admin: 04/26/18 14:04 Dose: Not Given Docusate Sodium (Colace) 100 mg PO BID PRN PRN Reason: Constipation Ergocalciferol (Drisdol 50,000 Intl Units Cap) 1 cap PO Q7D [facility] Last Admin: 04/26/18 12:24 Dose: 1 cap Hydromorphone HCl (Dilaudid) 1 mg IVP Q6H PRN PRN Reason: Pain, moderate (4-7) Last Admin: 04/26/18 12:24 Dose: 1 mg Insulin Aspart (Novolog) 0 unit SC [facility] PRN Reason: Protocol Last Admin: 04/26/18 11:58 Dose: Not Given Insulin Glargine (Lantus) 18 unit SC [facility] Isosorbide Mononitrate (Imdur) 60 mg PO DAILY [facility] Last Admin: 04/26/18 09:29 Dose: Not Given Losartan Potassium (Cozaar) 100 mg PO DAILY [facility] Last Admin: 04/26/18 09:29 Dose: Not Given Rosuvastatin Calcium (Crestor) 10 mg PO [facility] Valproate Sodium (Depakene Cap) 250 mg PO QID [facility] Last Admin: 04/26/18 14:04 Dose: Not Given Vitamin B Complex/Vit C/Folic Acid (Nephro-Courtney) 1 tab PO 0800 [facility] Last Admin: 04/26/18 08:08 Dose: 1 tab Physical Exam - Constitutional Appears: Chronically Ill - Head Exam Head Exam: ATRAUMATIC, NORMAL INSPECTION, NORMOCEPHALIC - Eye Exam Eye Exam: absent: Normal appearance - ENT Exam ENT Exam: Mucous Membranes Moist, Normal Oropharynx - Neck Exam Neck exam: Positive for: Normal Inspection - Respiratory Exam Respiratory Exam: Clear to Auscultation Bilateral. absent: Rhonchi, Wheezes - Cardiovascular Exam Cardiovascular Exam: Tachycardia, REGULAR RHYTHM, +S1, +S2, Systolic Murmur. absent: Gallop, +S4 - GI/Abdominal Exam GI & Abdominal Exam: Normal Bowel Sounds, Soft - Extremities Exam Extremities exam: Positive for: normal inspection (b/l BKA) - Neurological Exam Neurological exam: Alert, Oriented x3 - Skin Skin Exam: Normal Color Results - Vital Signs Recent Vital Signs: Last Vital Signs Temp 98 F 04/26/18 13:16 Pulse 49 L 04/26/18 13:16 Resp 16 04/26/18 13:16 BP 155/69 H 04/26/18 13:16 Pulse Ox 100 04/26/18 13:16 - Labs Result Diagrams: 04/26/18 01:02 04/26/18 01:02 Labs: Laboratory Results - last 24 hr 04/26/18 04/26/18 04/26/18 01:02 01:02 01:02 WBC 13.1 H RBC 3.76 L Hgb 10.8 L Hct 33.9 L MCV 90.1 MCH 28.8 MCHC 31.9 L RDW 18.8 H Plt Count 270 MPV 9.8 Neut % (Auto) 69.7 Lymph % (Auto) 20.1 [place] % (Auto) 7.2 Eos % (Auto) 2.0 Baso % (Auto) 1.0 Neut # (Auto) 9.2 H Lymph # (Auto) 2.6 [place] # (Auto) 1.0 H Eos # (Auto) 0.3 Baso # (Auto) 0.1 PT 13.4 H INR 1.2 APTT 24 Sodium 137 Potassium 4.6 Chloride 96 L Carbon Dioxide 24 Anion Gap 22 H BUN 51 H Creatinine 4.6 H Est GFR ( Amer) 18 Est GFR (Non-Af Amer) 15 POC Glucose (mg/dL) Random Glucose 425 H* D Calcium 9.6 Total Bilirubin 0.6 AST 19 ALT 14 L Alkaline Phosphatase 234 H D Total Creatine Kinase CK-MB (Mass) Troponin I 0.1290 H* NT-Pro-B Natriuret Pep 043473 H Total Protein 7.7 Albumin 4.3 Globulin 3.4 Albumin/Globulin Ratio 1.3 Lipase 113 04/26/18 04/26/18 04/26/18 06:39 10:04 11:47 WBC RBC Hgb Hct MCV MCH MCHC RDW Plt Count MPV Neut % (Auto) Lymph % (Auto) [place] % (Auto) Eos % (Auto) Baso % (Auto) Neut # (Auto) Lymph # (Auto) [place] # (Auto) Eos # (Auto) Baso # (Auto) PT INR APTT Sodium Potassium Chloride Carbon Dioxide Anion Gap BUN Creatinine Est GFR ( Amer) Est GFR (Non-Af Amer) POC Glucose (mg/dL) 316 H 40 L Random Glucose Calcium Total Bilirubin AST ALT Alkaline Phosphatase Total Creatine Kinase 29 L CK-MB (Mass) 0.47 Troponin I 0.0980 NT-Pro-B Natriuret Pep Total Protein Albumin Globulin Albumin/Globulin Ratio Lipase 04/26/18 12:16 WBC RBC Hgb Hct MCV MCH MCHC RDW Plt Count MPV Neut % (Auto) Lymph % (Auto) [place] % (Auto) Eos % (Auto) Baso % (Auto) Neut # (Auto) Lymph # (Auto) [place] # (Auto) Eos # (Auto) Baso # (Auto) PT INR APTT Sodium Potassium Chloride Carbon Dioxide Anion Gap BUN Creatinine Est GFR ( Amer) Est GFR (Non-Af Amer) POC Glucose (mg/dL) 265 H Random Glucose Calcium Total Bilirubin AST ALT Alkaline Phosphatase Total Creatine Kinase CK-MB (Mass) Troponin I NT-Pro-B Natriuret Pep Total Protein Albumin Globulin Albumin/Globulin Ratio Lipase Assessment & Plan - Assessment and Plan (Free Text) Assessment: Chronic CAD: not sutiable for further PCI Chronic Mild-mod LV dysfunction with acute on chronic diastolic dysfunction Uncontrolled DM Recurrent AFLutter with RVR: aflutter ablation deferred due to finding of RA thrombus around permacath site (04/2018 [facility] [place], [place]) B/L BKA Legally blind plan: cont rate control: inc coreg to 25 BID, cont diltiazwm 30 q8 or q6 and change to long acting cont ASA, statin add ranexa 500 BID for chronic CAD Cont eliquis 2.5 BID: eventually repeat [facility] to re-eval possibility of AFLUTTER ablation
[2018-04-26 14:47] LABS: CK-MB 0.38 ng/mL (0.0-3.38); TROPONIN I 0.101 ng/mL (0.00-0.120)
--- NOTE | 2018-04-26 16:36 | CP.PCM.CON ---
History of Present Illness - History of Present Illness History of Present Illness: Nephrology Consultation Note: Assessment:stable SOB, chronic chest pain, A flutter Diabetic chronic Kidney Disease (E11.22) Hypertensive Chronic Kidney Disease (I12.0) End stage renal disease (N18.6) dependence on hemodialysis (Z99.2) (TTS) via AVF Anemia (D64.9), Hyperphosphatemia (E83.39), Secondary Hyperparathyroidism (E21.1 ), HTN (I12.0) CAD s/p CABG, diastolic CHF, parox A flutter/fib, intra-cardiac thrombus, hx of Heparin induced thrombocytopenia, hx of seizure, blindness Plan: plan for dialysis today as per TTS. Continue with Nephrovite 1 tab/day. last Hb 10.8 hence no HANNAH with HD for now Continue with phos binders home dose BP control with meds as ordered. Glycemic control, Dialysis consistent diet Further work up/management as per primary team Dose meds/antibiotics for ESRD status. Avoid fleets enema/magnesium based laxatives. cardiology following Thanks for allowing me to participate in care of your patient. Will follow patient with you. Please call if any Qs. Dr Eric Temple Office: [phone] CC: chest pain, SOB and palpitations reason for consult: ESRD HPI: Pt is a 37 y/o transgender with hx of ESRD on hemodialysis (TTS) via permacath, chronic anemia, hyperphosphatemia, secondary hyperparathyroidism, Diabetes Mellitus, hypertension, CAD s/p CABG, diastolic CHF, pA flutter/fib, intra-cardiac thrombus, Heparin induced thrombocytopenia in past presented with complaints of SOB and chronic chest pain, palpitation which is better, c/o chronic shortness of breath but better ROS: All other negative except as in HPI. now better improved chronic chest pain , no GI symptoms. better SOB today. had rapid response for tachycardia Physical Examination: seen on HD General Appearance: in no acute respiratory distress, co-operative . Vitals reviewed and noted as below Head; Atraumatic, normocephalic ENT: no ulcers no thrush. Tongue is midline. Oropharynx: no rash or ulcers. EYES: Pt is blind both eyes Neck; supple no lymphadenopathy, no thyromegaly or bruit Lungs: Normal respiratory rate/effort. Breath sounds bilateral decreased at bases Heart: Normal rate. s1s2 normal. No rub or gallop. Extremities: no edema. No varicose veins. has b/l BKA. Neurological: Patient is awake follow commands no focal deficit Skin: Warm and dry. Normal turgor. No rash. Palpitation: Normal elasticity for age Abdomen: Abdomen is soft. Bowel sounds +. There is no abdominal tenderness, no guarding/rigidity or organomegaly Psych: limited insight and has normal affect/mood MSK: no joint tenderness or swelling. Digits and nails normal, no deformity : kidney or bladder not palpable Access: permacath Labs/imaging reviewed. Past medical history, past surgical history, family history, social history, allergy reviewed and noted as below Family Hx: no hx of CKD. Non contributory Past Patient History - Infectious Disease Hx of Infectious Diseases: None - Tetanus Immunizations Tetanus Immunization: >10 years Ago - Past Medical History & Family History Past Medical History?: Yes - Past Social History Smoking Status: Never Smoked - CARDIAC Hx Atrial Fibrillation: Yes Hx Cardia Arrhythmia: Yes Hx Congestive Heart Failure: Yes Hx Hypercholesterolemia: Yes Hx Hypertension: Yes - PULMONARY Hx Asthma: Yes Hx Bronchitis: Yes Hx Chronic Obstructive Pulmonary Disease (COPD): Yes Hx Pneumonia: Yes - NEUROLOGICAL Hx Alzheimer's Disease: Yes Hx Seizures: Yes - HEENT Hx HEENT Problems: Yes Hx Blind: Yes (legally blind) Hx Cataracts: Yes - RENAL Date of Last Dialysis Treatment: 04/24/18 - ENDOCRINE/METABOLIC Hx Hyperthyroidism: No Hx Hypothyroidism: Yes - HEMATOLOGICAL/ONCOLOGICAL Hx Anemia: Yes - INTEGUMENTARY Hx Dermatological Problems: No - MUSCULOSKELETAL/RHEUMATOLOGICAL Hx Falls: Yes - GASTROINTESTINAL Hx Gall Bladder Disease: Yes Hx Gastritis: Yes - GENITOURINARY/GYNECOLOGICAL Hx Sexually Transmitted Disorders: No - PSYCHIATRIC Hx Substance Use: No - SURGICAL HISTORY Hx Amputation: Yes Hx Cholecystectomy: Yes (2011) 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/2009) Hx Coronary Stent: Yes - ANESTHESIA Hx Anesthesia: Yes Hx Anesthesia Reactions: No Hx Malignant Hyperthermia: No Meds Allergies/Adverse Reactions: Allergies Allergy/AdvReac Type Severity Reaction Status Date / Time acetaminophen [From Percocet] Allergy RASH Verified 04/26/18 00:31 atenolol Allergy RASH Verified 04/26/18 00:31 digoxin Allergy RASH Verified 04/26/18 00:31 milk Allergy ITCHING Verified 04/26/18 00:31 morphine Allergy RASH Verified 04/26/18 00:31 oxycodone HCl [From Percocet] Allergy RASH Verified 04/26/18 00:31 - Medications Medications: Current Medications Albuterol/Ipratropium (Duoneb 3 Mg/0.5 Mg (3 Ml) Ud) 3 ml IH Q4H [facility] Albuterol/Ipratropium (Duoneb 3 Mg/0.5 Mg (3 Ml) Ud) 3 ml IH Q4 [facility] Last Admin: 04/26/18 16:31 Dose: Not Given Amiodarone HCl (Cordarone) 200 mg PO DAILY [facility] Last Admin: 04/26/18 12:24 Dose: 200 mg Amlodipine Besylate (Norvasc) 10 mg PO DAILY [facility] Last Admin: 04/26/18 09:29 Dose: Not Given Apixaban (Eliquis) 2.5 mg PO BID [facility] Aspirin (Aspirin Chewable) 81 mg PO DAILY [facility] Last Admin: 04/26/18 12:24 Dose: 81 mg Calcitriol (Rocaltrol) 0.25 mcg PO TTS [facility] Carvedilol (Coreg) 12.5 mg PO BID [facility] Last Admin: 04/26/18 09:27 Dose: 12.5 mg Diltiazem HCl (Cardizem) 30 mg PO QID [facility] Last Admin: 04/26/18 14:04 Dose: Not Given Docusate Sodium (Colace) 100 mg PO BID PRN PRN Reason: Constipation Ergocalciferol (Drisdol 50,000 Intl Units Cap) 1 cap PO Q7D [facility] Last Admin: 04/26/18 12:24 Dose: 1 cap Hydromorphone HCl (Dilaudid) 1 mg IVP Q6H PRN PRN Reason: Pain, moderate (4-7) Last Admin: 04/26/18 12:24 Dose: 1 mg Insulin Aspart (Novolog) 0 unit SC [facility] PRN Reason: Protocol Last Admin: 04/26/18 11:58 Dose: Not Given Insulin Glargine (Lantus) 18 unit SC [facility] Isosorbide Mononitrate (Imdur) 60 mg PO DAILY [facility] Last Admin: 04/26/18 09:29 Dose: Not Given Losartan Potassium (Cozaar) 100 mg PO DAILY [facility] Last Admin: 04/26/18 09:29 Dose: Not Given Rosuvastatin Calcium (Crestor) 10 mg PO HS [facility] Valproate Sodium (Depakene Cap) 250 mg PO QID [facility] Last Admin: 04/26/18 14:04 Dose: Not Given Vitamin B Complex/Vit C/Folic Acid (Nephro-Courtney) 1 tab PO 0800 [facility] Last Admin: 04/26/18 08:08 Dose: 1 tab Results - Vital Signs Recent Vital Signs: Last Vital Signs Temp 97.5 F L 04/26/18 15:09 Pulse 67 04/26/18 15:27 Resp 18 04/26/18 15:27 BP 146/76 04/26/18 15:27 Pulse Ox 16 L 04/26/18 14:05 - Labs Result Diagrams: 04/26/18 01:02 04/26/18 01:02 Labs: Laboratory Results - last 24 hr 04/26/18 04/26/18 04/26/18 01:02 01:02 01:02 WBC 13.1 H RBC 3.76 L Hgb 10.8 L Hct 33.9 L MCV 90.1 MCH 28.8 MCHC 31.9 L RDW 18.8 H Plt Count 270 MPV 9.8 Neut % (Auto) 69.7 Lymph % (Auto) 20.1 [place] % (Auto) 7.2 Eos % (Auto) 2.0 Baso % (Auto) 1.0 Neut # (Auto) 9.2 H Lymph # (Auto) 2.6 [place] # (Auto) 1.0 H Eos # (Auto) 0.3 Baso # (Auto) 0.1 PT 13.4 H INR 1.2 APTT 24 Sodium 137 Potassium 4.6 Chloride 96 L Carbon Dioxide 24 Anion Gap 22 H BUN 51 H Creatinine 4.6 H Est GFR ( Amer) 18 Est GFR (Non-Af Amer) 15 POC Glucose (mg/dL) Random Glucose 425 H* D Calcium 9.6 Total Bilirubin 0.6 AST 19 ALT 14 L Alkaline Phosphatase 234 H D Total Creatine Kinase CK-MB (Mass) Troponin I 0.1290 H* NT-Pro-B Natriuret Pep 003338 H Total Protein 7.7 Albumin 4.3 Globulin 3.4 Albumin/Globulin Ratio 1.3 Lipase 113 08/25/18 08/25/18 08/25/18 06:39 10:04 11:47 WBC RBC Hgb Hct MCV MCH MCHC RDW Plt Count MPV Neut % (Auto) Lymph % (Auto) [place] % (Auto) Eos % (Auto) Baso % (Auto) Neut # (Auto) Lymph # (Auto) [place] # (Auto) Eos # (Auto) Baso # (Auto) PT INR APTT Sodium Potassium Chloride Carbon Dioxide Anion Gap BUN Creatinine Est GFR ( Amer) Est GFR (Non-Af Amer) POC Glucose (mg/dL) 316 H 40 L Random Glucose Calcium Total Bilirubin AST ALT Alkaline Phosphatase Total Creatine Kinase 29 L CK-MB (Mass) 0.47 Troponin I 0.0980 NT-Pro-B Natriuret Pep Total Protein Albumin Globulin Albumin/Globulin Ratio Lipase 04/26/18 04/26/18 12:16 14:21 WBC RBC Hgb Hct MCV MCH MCHC RDW Plt Count MPV Neut % (Auto) Lymph % (Auto) [place] % (Auto) Eos % (Auto) Baso % (Auto) Neut # (Auto) Lymph # (Auto) [place] # (Auto) Eos # (Auto) Baso # (Auto) PT INR APTT Sodium Potassium Chloride Carbon Dioxide Anion Gap BUN Creatinine Est GFR ( Amer) Est GFR (Non-Af Amer) POC Glucose (mg/dL) 265 H Random Glucose Calcium Total Bilirubin AST ALT Alkaline Phosphatase Total Creatine Kinase 31 L CK-MB (Mass) 0.38 Troponin I 0.1010 NT-Pro-B Natriuret Pep Total Protein Albumin Globulin Albumin/Globulin Ratio Lipase
[2018-04-26] MEDS: (Lantus) Insulin Glargine, Recombinant SC SCH (21:34)
[2018-04-27] MEDS: HYDROmorphone 1 mg/ml ISec IVP PRN ×4 (00:26→18:59)
[2018-04-27] MEDS: Albuterol-Ipratrop 3 mg / 0.5 (3 ml) UD IH SCH ×5 (03:20→20:47)
[2018-04-27] MEDS: Multivitamin Vitamin B Complex (Nephro-Vite) Tab PO SCH (08:16)
[2018-04-27] MEDS: (Novolog) Insulin Aspart, Recombinant 100 u/ml 10 ml vial SC SCH ×4 (08:16→22:11)
--- NOTE | 2018-04-27 09:42 | CP.PCM.PN ---
Subjective - Date & Time of Evaluation Date of Evaluation: 04/27/18 Time of Evaluation: 09:40 - Subjective Subjective: still sob on and off chest pain bs is beterless palpitation Objective - Vital Signs/Intake and Output Vital Signs (last 24 hours): Temp Pulse Resp BP Pulse Ox 97.9 F 70 20 139/78 99 04/27/18 07:00 04/27/18 09:36 04/27/18 07:00 04/27/18 09:37 04/27/18 07:00 Intake and Output: 04/27/18 04/27/18 06:59 18:59 Intake Total 350 Balance 350 - Medications Medications: Current Medications Albuterol/Ipratropium (Duoneb 3 Mg/0.5 Mg (3 Ml) Ud) 3 ml IH Q4H [facility] Albuterol/Ipratropium (Duoneb 3 Mg/0.5 Mg (3 Ml) Ud) 3 ml IH Q4 [facility] Last Admin: 04/27/18 08:05 Dose: Not Given Amiodarone HCl (Cordarone) 200 mg PO DAILY [facility] Last Admin: 04/27/18 09:37 Dose: 200 mg Amlodipine Besylate (Norvasc) 10 mg PO DAILY [facility] Last Admin: 04/27/18 09:37 Dose: 10 mg Apixaban (Eliquis) 2.5 mg PO BID [facility] Last Admin: 04/27/18 09:37 Dose: 2.5 mg Aspirin (Aspirin Chewable) 81 mg PO DAILY [facility] Last Admin: 04/27/18 09:37 Dose: 81 mg Calcitriol (Rocaltrol) 0.25 mcg PO TTS [facility] Carvedilol (Coreg) 12.5 mg PO BID [facility] Last Admin: 04/27/18 09:37 Dose: 12.5 mg Diltiazem HCl (Cardizem) 30 mg PO QID [facility] Last Admin: 04/27/18 09:37 Dose: 30 mg Docusate Sodium (Colace) 100 mg PO BID PRN PRN Reason: Constipation Ergocalciferol (Drisdol 50,000 Intl Units Cap) 1 cap PO Q7D [facility] Last Admin: 04/26/18 12:24 Dose: 1 cap Heparin Sodium (Porcine) (Heparin) 3,700 units IVP TTS [facility] Stop: 05/08/18 10:01 Last Admin: 04/26/18 17:29 Dose: 3,700 units Hydromorphone HCl (Dilaudid) 1 mg IVP Q6H PRN PRN Reason: Pain, moderate (4-7) Last Admin: 04/27/18 06:34 Dose: 1 mg Insulin Aspart (Novolog) 0 unit SC [facility] PRN Reason: Protocol Last Admin: 04/27/18 08:16 Dose: 2 units Insulin Glargine (Lantus) 18 unit SC [facility] Last Admin: 04/26/18 21:34 Dose: 18 units Isosorbide Mononitrate (Imdur) 60 mg PO DAILY [facility] Last Admin: 04/27/18 09:37 Dose: 60 mg Losartan Potassium (Cozaar) 100 mg PO DAILY [facility] Last Admin: 04/27/18 09:37 Dose: 100 mg Rosuvastatin Calcium (Crestor) 10 mg PO [facility] Last Admin: 04/26/18 21:33 Dose: 10 mg Valproate Sodium (Depakene Cap) 250 mg PO QID [facility] Last Admin: 04/27/18 09:37 Dose: 250 mg Vitamin B Complex/Vit C/Folic Acid (Nephro-Courtney) 1 tab PO 0800 [facility] Last Admin: 04/27/18 08:16 Dose: 1 tab - Labs Labs: 04/26/18 01:02 04/26/18 01:02 PT 13.4 SECONDS (9.7-12.2) H 04/26/18 01:02 INR 1.2 04/26/18 01:02 APTT 24 SECONDS (21-34) 04/26/18 01:02 - Constitutional Appears: Non-toxic - Head Exam Head Exam: NORMAL INSPECTION - Eye Exam Eye Exam: Conjunctival injection Additional comments: blind - ENT Exam ENT Exam: Mucous Membranes Moist - Respiratory Exam Respiratory Exam: Decreased Breath Sounds - Cardiovascular Exam Cardiovascular Exam: Irregular Rhythm - GI/Abdominal Exam GI & Abdominal Exam: Normal Bowel Sounds - Rectal Exam Rectal Exam: Deferred - Extremities Exam Additional comments: javier amputation - Neurological Exam Neurological Exam: Awake, Oriented x3 - Psychiatric Exam Psychiatric exam: Normal Affect - Skin Skin Exam: Normal Color, Pallor Assessment and Plan - Assessment and Plan (Free Text) Assessment: cad chf cardiac arrythmia dm esrf Plan: cont as per orders
[2018-04-27] MEDS ORDERED: Dextrose 50% SYRINGE Inj (50 ml) IV STA (10:53)
--- NOTE | 2018-04-27 12:11 | CP.PCM.PN ---
Subjective - Date & Time of Evaluation Date of Evaluation: 04/27/18 Time of Evaluation: 12:11 - Subjective Subjective: Nephrology Consultation Note: Assessment:stable SOB, chronic chest pain, A flutter Diabetic chronic Kidney Disease (E11.22) Hypertensive Chronic Kidney Disease (I12.0) End stage renal disease (N18.6) dependence on hemodialysis (Z99.2) (TTS) via AVF Anemia (D64.9), Hyperphosphatemia (E83.39), Secondary Hyperparathyroidism (E21.1 ), HTN (I12.0) CAD s/p CABG, diastolic CHF, parox A flutter/fib, intra-cardiac thrombus, hx of Heparin induced thrombocytopenia, hx of seizure, blindness Plan: plan for dialysis saturday as per TTS. Continue with Nephrovite 1 tab/day. last Hb 10.8 hence no HANNAH with HD for now Continue with phos binders home dose BP control with meds as ordered. Glycemic control, Dialysis consistent diet Further work up/management as per primary team Dose meds/antibiotics for ESRD status. Avoid fleets enema/magnesium based laxatives. cardiology following Thanks for allowing me to participate in care of your patient. Will follow patient with you. Please call if any Qs. Dr Eric Temple Office: [phone] CC: chest pain, SOB and palpitations reason for consult: ESRD HPI: Pt is a 37 y/o transgender with hx of ESRD on hemodialysis (TTS) via permacath, chronic anemia, hyperphosphatemia, secondary hyperparathyroidism, Diabetes Mellitus, hypertension, CAD s/p CABG, diastolic CHF, pA flutter/fib, intra-cardiac thrombus, Heparin induced thrombocytopenia in past presented with complaints of SOB and chronic chest pain, palpitation which is better, c/o chronic shortness of breath but better ROS: All other negative except as in HPI. now better improved chronic chest pain , no GI symptoms. better SOB today. had rapid response for tachycardia Physical Examination: seen on HD General Appearance: in no acute respiratory distress, co-operative . Vitals reviewed and noted as below Head; Atraumatic, normocephalic ENT: no ulcers no thrush. Tongue is midline. Oropharynx: no rash or ulcers. EYES: Pt is blind both eyes Neck; supple no lymphadenopathy, no thyromegaly or bruit Lungs: Normal respiratory rate/effort. Breath sounds bilateral clear Heart: Normal rate. s1s2 normal. No rub or gallop. Extremities: no edema. No varicose veins. has b/l BKA. Neurological: Patient is awake follow commands no focal deficit Skin: Warm and dry. Normal turgor. No rash. Palpitation: Normal elasticity for age Abdomen: Abdomen is soft. Bowel sounds +. There is no abdominal tenderness, no guarding/rigidity or organomegaly Psych: limited insight and has normal affect/mood MSK: no joint tenderness or swelling. Digits and nails normal, no deformity : kidney or bladder not palpable Access: permacath Labs/imaging reviewed. Past medical history, past surgical history, family history, social history, allergy reviewed and noted as below Family Hx: no hx of CKD. Non contributory Objective - Vital Signs/Intake and Output Vital Signs (last 24 hours): Temp Pulse Resp BP Pulse Ox 97.9 F 70 20 139/78 99 04/27/18 07:00 04/27/18 09:36 04/27/18 07:00 04/27/18 09:37 04/27/18 07:00 Intake and Output: 04/27/18 04/27/18 06:59 18:59 Intake Total 350 Balance 350 - Medications Medications: Current Medications Albuterol/Ipratropium (Duoneb 3 Mg/0.5 Mg (3 Ml) Ud) 3 ml IH Q4H [facility] Albuterol/Ipratropium (Duoneb 3 Mg/0.5 Mg (3 Ml) Ud) 3 ml IH Q4 [facility] Last Admin: 04/27/18 12:07 Dose: Not Given Amiodarone HCl (Cordarone) 200 mg PO DAILY [facility] Last Admin: 04/27/18 09:37 Dose: 200 mg Amlodipine Besylate (Norvasc) 10 mg PO DAILY [facility] Last Admin: 04/27/18 09:37 Dose: 10 mg Apixaban (Eliquis) 2.5 mg PO BID [facility] Last Admin: 04/27/18 09:37 Dose: 2.5 mg Aspirin (Aspirin Chewable) 81 mg PO DAILY [facility] Last Admin: 04/27/18 09:37 Dose: 81 mg Calcitriol (Rocaltrol) 0.25 mcg PO TTS [facility] Carvedilol (Coreg) 12.5 mg PO BID [facility] Last Admin: 04/27/18 09:37 Dose: 12.5 mg Diltiazem HCl (Cardizem) 30 mg PO QID [facility] Last Admin: 04/27/18 09:37 Dose: 30 mg Docusate Sodium (Colace) 100 mg PO BID PRN PRN Reason: Constipation Ergocalciferol (Drisdol 50,000 Intl Units Cap) 1 cap PO Q7D [facility] Last Admin: 04/26/18 12:24 Dose: 1 cap Heparin Sodium (Porcine) (Heparin) 3,700 units IVP TTS [facility] Stop: 05/08/18 10:01 Last Admin: 04/26/18 17:29 Dose: 3,700 units Hydromorphone HCl (Dilaudid) 1 mg IVP Q6H PRN PRN Reason: Pain, moderate (4-7) Last Admin: 04/27/18 06:34 Dose: 1 mg Insulin Aspart (Novolog) 0 unit SC [facility] PRN Reason: Protocol Last Admin: 04/27/18 10:56 Dose: Not Given Insulin Glargine (Lantus) 18 unit SC [facility] Last Admin: 04/26/18 21:34 Dose: 18 units Isosorbide Mononitrate (Imdur) 60 mg PO DAILY [facility] Last Admin: 04/27/18 09:37 Dose: 60 mg Losartan Potassium (Cozaar) 100 mg PO DAILY [facility] Last Admin: 04/27/18 09:37 Dose: 100 mg Rosuvastatin Calcium (Crestor) 10 mg PO HS [facility] Last Admin: 04/26/18 21:33 Dose: 10 mg Valproate Sodium (Depakene Cap) 250 mg PO QID [facility] Last Admin: 04/27/18 09:37 Dose: 250 mg Vitamin B Complex/Vit C/Folic Acid (Nephro-Courtney) 1 tab PO 0800 [facility] Last Admin: 04/27/18 08:16 Dose: 1 tab - Labs Labs: 04/26/18 01:02 04/26/18 01:02 PT 13.4 SECONDS (9.7-12.2) H 04/26/18 01:02 INR 1.2 04/26/18 01:02 APTT 24 SECONDS (21-34) 04/26/18 01:02
[2018-04-27] MEDS: (Lantus) Insulin Glargine, Recombinant SC SCH (22:11)
[2018-04-28] MEDS: Albuterol-Ipratrop 3 mg / 0.5 (3 ml) UD IH SCH ×6 (00:10→19:39)
[2018-04-28] MEDS: HYDROmorphone 1 mg/ml ISec IVP PRN ×4 (01:06→21:56)
[2018-04-28] MEDS: (Novolog) Insulin Aspart, Recombinant 100 u/ml 10 ml vial SC SCH ×4 (08:10→21:52)
[2018-04-28] MEDS: Multivitamin Vitamin B Complex (Nephro-Vite) Tab PO SCH (08:34)
--- NOTE | 2018-04-28 11:25 | CARD ---
APPROVED REPORT Date of service: 04/26/2018 EKG Measurement Heart [id number] <Conclusion> Atrial flutter with variable AV block Left ventricular hypertrophy with QRS widening and repolarization abnormality Inferior infarct, age undetermined Abnormal ECG
--- NOTE | 2018-04-28 15:14 | CP.PCM.PN ---
Subjective - Date & Time of Evaluation Date of Evaluation: 04/28/18 Time of Evaluation: 15:13 - Subjective Subjective: Nephrology Consultation Note: Assessment:stable SOB, chronic chest pain, A flutter Diabetic chronic Kidney Disease (E11.22) Hypertensive Chronic Kidney Disease (I12.0) End stage renal disease (N18.6) dependence on hemodialysis (Z99.2) (TTS) via AVF Anemia (D64.9), Hyperphosphatemia (E83.39), Secondary Hyperparathyroidism (E21.1 ), HTN (I12.0) CAD s/p CABG, diastolic CHF, parox A flutter/fib, intra-cardiac thrombus, hx of Heparin induced thrombocytopenia, hx of seizure, blindness Plan: plan for dialysis saturday as per TTS. Continue with Nephrovite 1 tab/day. last Hb 10.8 hence no HANNAH with HD for now Continue with phos binders home dose BP control with meds as ordered. Glycemic control, Dialysis consistent diet Further work up/management as per primary team Dose meds/antibiotics for ESRD status. Avoid fleets enema/magnesium based laxatives. cardiology following Thanks for allowing me to participate in care of your patient. Will follow patient with you. Please call if any Qs. Dr Eric Temple Office: [phone] CC: chest pain, SOB and palpitations reason for consult: ESRD HPI: Pt is a 37 y/o transgender with hx of ESRD on hemodialysis (TTS) via permacath, chronic anemia, hyperphosphatemia, secondary hyperparathyroidism, Diabetes Mellitus, hypertension, CAD s/p CABG, diastolic CHF, pA flutter/fib, intra-cardiac thrombus, Heparin induced thrombocytopenia in past presented with complaints of SOB and chronic chest pain, palpitation which is better, c/o chronic shortness of breath but better ROS: All other negative except as in HPI. now better improved chronic chest pain , no GI symptoms. better SOB today. had rapid response for tachycardia no new complaints except c/o headache Physical Examination: General Appearance: in no acute respiratory distress, co-operative . Vitals reviewed and noted as below Head; Atraumatic, normocephalic ENT: no ulcers no thrush. Tongue is midline. Oropharynx: no rash or ulcers. EYES: Pt is blind both eyes Neck; supple no lymphadenopathy, no thyromegaly or bruit Lungs: Normal respiratory rate/effort. Breath sounds bilateral clear Heart: Normal rate. s1s2 normal. No rub or gallop. Extremities: no edema. No varicose veins. has b/l BKA. Neurological: Patient is awake follow commands no focal deficit Skin: Warm and dry. Normal turgor. No rash. Palpitation: Normal elasticity for age Abdomen: Abdomen is soft. Bowel sounds +. There is no abdominal tenderness, no guarding/rigidity or organomegaly Psych: limited insight and has normal affect/mood MSK: no joint tenderness or swelling. Digits and nails normal, no deformity : kidney or bladder not palpable Access: permacath Labs/imaging reviewed. Past medical history, past surgical history, family history, social history, allergy reviewed and noted as below Family Hx: no hx of CKD. Non contributory Objective - Vital Signs/Intake and Output Vital Signs (last 24 hours): Temp Pulse Resp BP Pulse Ox 97.5 F L 73 20 166/71 H 94 L 04/28/18 07:00 04/28/18 08:00 04/28/18 07:00 04/28/18 09:18 04/28/18 07:00 - Medications Medications: Current Medications Albuterol/Ipratropium (Duoneb 3 Mg/0.5 Mg (3 Ml) Ud) 3 ml IH RQ4 [facility] Last Admin: 04/28/18 12:58 Dose: Not Given Amiodarone HCl (Cordarone) 200 mg PO DAILY [facility] Last Admin: 04/28/18 09:20 Dose: 200 mg Amlodipine Besylate (Norvasc) 10 mg PO DAILY [facility] Last Admin: 04/28/18 09:19 Dose: 10 mg Apixaban (Eliquis) 2.5 mg PO BID [facility] Last Admin: 04/28/18 09:21 Dose: 2.5 mg Aspirin (Aspirin Chewable) 81 mg PO DAILY [facility] Last Admin: 04/28/18 09:19 Dose: 81 mg Calcitriol (Rocaltrol) 0.25 mcg PO TTS [facility] Carvedilol (Coreg) 12.5 mg PO BID [facility] Last Admin: 04/28/18 09:18 Dose: 12.5 mg Diltiazem HCl (Cardizem) 30 mg PO QID [facility] Last Admin: 04/28/18 14:26 Dose: 30 mg Docusate Sodium (Colace) 100 mg PO BID PRN PRN Reason: Constipation Ergocalciferol (Drisdol 50,000 Intl Units Cap) 1 cap PO Q7D [facility] Last Admin: 04/26/18 12:24 Dose: 1 cap Heparin Sodium (Porcine) (Heparin) 3,700 units IVP TTS [facility] Stop: 05/08/18 10:01 Last Admin: 04/26/18 17:29 Dose: 3,700 units Hydromorphone HCl (Dilaudid) 1 mg IVP Q6H PRN PRN Reason: Pain, moderate (4-7) Last Admin: 04/28/18 13:09 Dose: 1 mg Insulin Aspart (Novolog) 0 unit SC ACHS [facility] PRN Reason: Protocol Last Admin: 04/28/18 11:55 Dose: Not Given Insulin Glargine (Lantus) 18 unit SC HS [facility] Last Admin: 04/27/18 22:11 Dose: Not Given Isosorbide Mononitrate (Imdur) 60 mg PO DAILY [facility] Last Admin: 04/28/18 09:21 Dose: 60 mg Losartan Potassium (Cozaar) 100 mg PO DAILY [facility] Last Admin: 04/28/18 09:20 Dose: 100 mg Rosuvastatin Calcium (Crestor) 10 mg PO HS [facility] Last Admin: 04/27/18 22:10 Dose: 10 mg Valproate Sodium (Depakene Cap) 250 mg PO QID [facility] Last Admin: 04/28/18 14:26 Dose: 250 mg Vitamin B Complex/Vit C/Folic Acid (Nephro-Courtney) 1 tab PO 0800 [facility] Last Admin: 04/28/18 08:34 Dose: 1 tab - Labs Labs: 04/26/18 01:02 04/26/18 01:02 PT 13.4 SECONDS (9.7-12.2) H 04/26/18 01:02 INR 1.2 04/26/18 01:02 APTT 24 SECONDS (21-34) 04/26/18 01:02
--- NOTE | 2018-04-28 16:24 | CP.PCM.PN ---
Subjective - Date & Time of Evaluation Date of Evaluation: 04/28/18 Time of Evaluation: 16:21 - Subjective Subjective: feels beter less chest pain or sob no palpitation Objective - Vital Signs/Intake and Output Vital Signs (last 24 hours): Temp Pulse Resp BP Pulse Ox 98.2 F 61 20 146/73 96 04/28/18 15:00 04/28/18 15:00 04/28/18 15:00 04/28/18 15:00 04/28/18 15:00 - Medications Medications: Current Medications Albuterol/Ipratropium (Duoneb 3 Mg/0.5 Mg (3 Ml) Ud) 3 ml IH RQ4 [facility] Last Admin: 04/28/18 16:15 Dose: Not Given Amiodarone HCl (Cordarone) 200 mg PO DAILY [facility] Last Admin: 04/28/18 09:20 Dose: 200 mg Amlodipine Besylate (Norvasc) 10 mg PO DAILY [facility] Last Admin: 04/28/18 09:19 Dose: 10 mg Apixaban (Eliquis) 2.5 mg PO BID [facility] Last Admin: 04/28/18 09:21 Dose: 2.5 mg Aspirin (Aspirin Chewable) 81 mg PO DAILY [facility] Last Admin: 04/28/18 09:19 Dose: 81 mg Calcitriol (Rocaltrol) 0.25 mcg PO TTS [facility] Carvedilol (Coreg) 12.5 mg PO BID [facility] Last Admin: 04/28/18 09:18 Dose: 12.5 mg Diltiazem HCl (Cardizem) 30 mg PO QID [facility] Last Admin: 04/28/18 14:26 Dose: 30 mg Docusate Sodium (Colace) 100 mg PO BID PRN PRN Reason: Constipation Ergocalciferol (Drisdol 50,000 Intl Units Cap) 1 cap PO Q7D [facility] Last Admin: 04/26/18 12:24 Dose: 1 cap Heparin Sodium (Porcine) (Heparin) 3,700 units IVP TTS [facility] Stop: 05/08/18 10:01 Last Admin: 04/26/18 17:29 Dose: 3,700 units Hydromorphone HCl (Dilaudid) 1 mg IVP Q6H PRN PRN Reason: Pain, moderate (4-7) Last Admin: 04/28/18 13:09 Dose: 1 mg Insulin Aspart (Novolog) 0 unit SC [facility] PRN Reason: Protocol Last Admin: 04/28/18 11:55 Dose: Not Given Insulin Glargine (Lantus) 18 unit SC [facility] Last Admin: 04/27/18 22:11 Dose: Not Given Isosorbide Mononitrate (Imdur) 60 mg PO DAILY [facility] Last Admin: 04/28/18 09:21 Dose: 60 mg Losartan Potassium (Cozaar) 100 mg PO DAILY [facility] Last Admin: 04/28/18 09:20 Dose: 100 mg Rosuvastatin Calcium (Crestor) 10 mg PO [facility] Last Admin: 04/27/18 22:10 Dose: 10 mg Valproate Sodium (Depakene Cap) 250 mg PO QID [facility] Last Admin: 04/28/18 14:26 Dose: 250 mg Vitamin B Complex/Vit C/Folic Acid (Nephro-Courtney) 1 tab PO 0800 [facility] Last Admin: 04/28/18 08:34 Dose: 1 tab - Labs Labs: 04/26/18 01:02 04/26/18 01:02 PT 13.4 SECONDS (9.7-12.2) H 04/26/18 01:02 INR 1.2 04/26/18 01:02 APTT 24 SECONDS (21-34) 04/26/18 01:02 - Constitutional Appears: Non-toxic - Head Exam Head Exam: ATRAUMATIC - Eye Exam Eye Exam: Conjunctival injection - ENT Exam ENT Exam: Mucous Membranes Moist - Neck Exam Neck Exam: Full ROM - Respiratory Exam Respiratory Exam: Decreased Breath Sounds - Cardiovascular Exam Cardiovascular Exam: Irregular Rhythm, +S1, +S2, +S4 - GI/Abdominal Exam GI & Abdominal Exam: Normal Bowel Sounds - Extremities Exam Extremities Exam: Normal Inspection - Back Exam Back Exam: NORMAL INSPECTION - Neurological Exam Neurological Exam: Awake - Psychiatric Exam Psychiatric exam: Normal Affect - Skin Skin Exam: Normal Color Assessment and Plan - Assessment and Plan (Free Text) Assessment: ac chest pain improved chf beter palpitation cardiac arrythmia Plan: as per order
[2018-04-28] MEDS: (Lantus) Insulin Glargine, Recombinant SC SCH (21:58)
[2018-04-29] MEDS: Albuterol-Ipratrop 3 mg / 0.5 (3 ml) UD IH SCH ×4 (00:37→19:32)
[2018-04-29] MEDS: HYDROmorphone 1 mg/ml ISec IVP PRN ×4 (03:42→22:23)
[2018-04-29] MEDS: Multivitamin Vitamin B Complex (Nephro-Vite) Tab PO SCH (08:26)
[2018-04-29] MEDS: (Novolog) Insulin Aspart, Recombinant 100 u/ml 10 ml vial SC SCH ×4 (08:31→21:36)
--- NOTE | 2018-04-29 10:34 | CP.PCM.PN ---
Subjective - Date & Time of Evaluation Date of Evaluation: 04/29/18 Time of Evaluation: 10:30 - Subjective Subjective: Feels better getting HD chronic chest wall pain No angina No ADHF BP is labile: spoke with Nephrology: BP improves after HD Objective - Vital Signs/Intake and Output Vital Signs (last 24 hours): Temp Pulse Resp BP Pulse Ox 98.2 F 71 20 166/77 H 100 04/29/18 07:10 04/29/18 10:13 04/29/18 07:10 04/29/18 10:13 04/29/18 07:10 - Medications Medications: Current Medications Albuterol/Ipratropium (Duoneb 3 Mg/0.5 Mg (3 Ml) Ud) 3 ml IH RQ4 [facility] Last Admin: 04/29/18 08:21 Dose: Not Given Amiodarone HCl (Cordarone) 200 mg PO DAILY [facility] Last Admin: 04/28/18 09:20 Dose: 200 mg Amlodipine Besylate (Norvasc) 10 mg PO DAILY [facility] Last Admin: 04/28/18 09:19 Dose: 10 mg Apixaban (Eliquis) 2.5 mg PO BID [facility] Last Admin: 04/28/18 18:16 Dose: 2.5 mg Aspirin (Aspirin Chewable) 81 mg PO DAILY [facility] Last Admin: 04/28/18 09:19 Dose: 81 mg Calcitriol (Rocaltrol) 0.25 mcg PO TTS [facility] Carvedilol (Coreg) 12.5 mg PO BID [facility] Last Admin: 04/28/18 18:17 Dose: 12.5 mg Diltiazem HCl (Cardizem) 30 mg PO QID [facility] Last Admin: 04/28/18 22:02 Dose: Not Given Docusate Sodium (Colace) 100 mg PO BID PRN PRN Reason: Constipation Ergocalciferol (Drisdol 50,000 Intl Units Cap) 1 cap PO Q7D [facility] Last Admin: 04/26/18 12:24 Dose: 1 cap Hydromorphone HCl (Dilaudid) 1 mg IVP Q6H PRN PRN Reason: Pain, moderate (4-7) Last Admin: 04/29/18 10:14 Dose: 1 mg Insulin Aspart (Novolog) 0 unit SC ACHS [facility] PRN Reason: Protocol Last Admin: 04/29/18 08:31 Dose: Not Given Insulin Glargine (Lantus) 18 unit SC [facility] Last Admin: 04/28/18 21:58 Dose: 18 units Isosorbide Mononitrate (Imdur) 60 mg PO DAILY [facility] Last Admin: 04/28/18 09:21 Dose: 60 mg Losartan Potassium (Cozaar) 100 mg PO DAILY [facility] Last Admin: 04/28/18 09:20 Dose: 100 mg Rosuvastatin Calcium (Crestor) 10 mg PO [facility] Last Admin: 04/28/18 21:59 Dose: 10 mg Valproate Sodium (Depakene Cap) 250 mg PO QID [facility] Last Admin: 04/28/18 21:59 Dose: 250 mg Vitamin B Complex/Vit C/Folic Acid (Nephro-Courtney) 1 tab PO 0800 [facility] Last Admin: 04/29/18 08:26 Dose: 1 tab - Labs Labs: 04/26/18 01:02 04/26/18 01:02 PT 13.4 SECONDS (9.7-12.2) H 04/26/18 01:02 INR 1.2 04/26/18 01:02 APTT 24 SECONDS (21-34) 04/26/18 01:02 - Constitutional Appears: Chronically Ill - Head Exam Head Exam: ATRAUMATIC, NORMAL INSPECTION, NORMOCEPHALIC - Eye Exam Eye Exam: absent: Normal appearance - Neck Exam Neck Exam: Normal Inspection - Respiratory Exam Respiratory Exam: Clear to Ausculation Bilateral. absent: Rhonchi, Wheezes - Cardiovascular Exam Cardiovascular Exam: REGULAR RHYTHM, +S1, +S2, Murmur - GI/Abdominal Exam GI & Abdominal Exam: Soft. absent: Tenderness - Extremities Exam Extremities Exam: absent: Normal Inspection (b/l BKA) Assessment and Plan - Assessment and Plan (Free Text) Assessment: Chronic CAD: not sutiable for further PCI Chronic Mild-mod LV dysfunction with acute on chronic diastolic dysfunction Uncontrolled DM Recurrent AFLutter with RVR: aflutter ablation deferred due to finding of RA thrombus around permacath site (04/2018 [facility] B/L BKA Legally blind plan: cont rate control: inc coreg to 25 BID, cont diltiazem 30 q8 or q6 and change to long acting cont ASA, statin add ranexa 500 BID for chronic CAD Cont eliquis 2.5 BID: eventually repeat [facility] to re-eval possibility of AFLUTTER ablation this will be done as outpatient after 1-2 months
--- NOTE | 2018-04-29 11:46 | CP.PCM.PN ---
Subjective - Date & Time of Evaluation Date of Evaluation: 04/29/18 Time of Evaluation: 11:43 - Subjective Subjective: seen in dialysis still has chest pain less sob no palpitation Objective - Vital Signs/Intake and Output Vital Signs (last 24 hours): Temp Pulse Resp BP Pulse Ox 98.2 F 71 20 166/77 H 100 04/29/18 07:10 04/29/18 10:13 04/29/18 07:10 04/29/18 10:13 04/29/18 07:10 - Medications Medications: Current Medications Albuterol/Ipratropium (Duoneb 3 Mg/0.5 Mg (3 Ml) Ud) 3 ml IH RQ4 [facility] Last Admin: 04/29/18 08:21 Dose: Not Given Amiodarone HCl (Cordarone) 200 mg PO DAILY [facility] Last Admin: 04/28/18 09:20 Dose: 200 mg Amlodipine Besylate (Norvasc) 10 mg PO DAILY [facility] Last Admin: 04/28/18 09:19 Dose: 10 mg Apixaban (Eliquis) 2.5 mg PO BID [facility] Last Admin: 04/28/18 18:16 Dose: 2.5 mg Aspirin (Aspirin Chewable) 81 mg PO DAILY [facility] Last Admin: 04/28/18 09:19 Dose: 81 mg Calcitriol (Rocaltrol) 0.25 mcg PO TTS [facility] Carvedilol (Coreg) 12.5 mg PO BID [facility] Last Admin: 04/28/18 18:17 Dose: 12.5 mg Diltiazem HCl (Cardizem) 30 mg PO QID [facility] Last Admin: 04/28/18 22:02 Dose: Not Given Docusate Sodium (Colace) 100 mg PO BID PRN PRN Reason: Constipation Ergocalciferol (Drisdol 50,000 Intl Units Cap) 1 cap PO Q7D [facility] Last Admin: 04/26/18 12:24 Dose: 1 cap Hydromorphone HCl (Dilaudid) 1 mg IVP Q6H PRN PRN Reason: Pain, moderate (4-7) Last Admin: 04/29/18 10:14 Dose: 1 mg Insulin Aspart (Novolog) 0 unit SC [facility] PRN Reason: Protocol Last Admin: 04/29/18 08:31 Dose: Not Given Insulin Glargine (Lantus) [address] [facility] Last Admin: 04/28/18 21:58 Dose: 18 units Isosorbide Mononitrate (Imdur) 60 mg PO DAILY [facility] Last Admin: 04/28/18 09:21 Dose: 60 mg Losartan Potassium (Cozaar) 100 mg PO DAILY [facility] Last Admin: 04/28/18 09:20 Dose: 100 mg Rosuvastatin Calcium (Crestor) 10 mg PO HS [facility] Last Admin: 04/28/18 21:59 Dose: 10 mg Valproate Sodium (Depakene Cap) 250 mg PO QID [facility] Last Admin: 04/28/18 21:59 Dose: 250 mg Vitamin B Complex/Vit C/Folic Acid (Nephro-Courtney) 1 tab PO 0800 [facility] Last Admin: 04/29/18 08:26 Dose: 1 tab - Labs Labs: 04/26/18 01:02 04/26/18 01:02 PT 13.4 SECONDS (9.7-12.2) H 04/26/18 01:02 INR 1.2 04/26/18 01:02 APTT 24 SECONDS (21-34) 04/26/18 01:02 - Constitutional Appears: Non-toxic - Head Exam Head Exam: NORMAL INSPECTION - Eye Exam Eye Exam: Conjunctival injection - ENT Exam ENT Exam: Mucous Membranes Moist - Neck Exam Neck Exam: Full ROM - Respiratory Exam Respiratory Exam: Decreased Breath Sounds - Cardiovascular Exam Cardiovascular Exam: Irregular Rhythm - GI/Abdominal Exam GI & Abdominal Exam: Soft - Rectal Exam Rectal Exam: NORMAL INSPECTION - Extremities Exam Additional comments: javier amputation - Back Exam Back Exam: CVA tenderness (L) - Neurological Exam Neurological Exam: Awake, Oriented x3 - Psychiatric Exam Psychiatric exam: Normal Affect - Skin Skin Exam: Pallor Assessment and Plan - Assessment and Plan (Free Text) Assessment: dm iproved ESRF ON DIALYSIS [facility] STILL CHEST PAIN HTN CHF CONT TRATMENT
--- NOTE | 2018-04-29 12:30 | CP.PCM.PN ---
Subjective - Date & Time of Evaluation Date of Evaluation: 04/29/18 Time of Evaluation: 12:29 - Subjective Subjective: Nephrology Consultation Note: Assessment:stable SOB, chronic chest pain, A flutter Diabetic chronic Kidney Disease (E11.22) Hypertensive Chronic Kidney Disease (I12.0) End stage renal disease (N18.6) dependence on hemodialysis (Z99.2) (TTS) via AVF Anemia (D64.9), Hyperphosphatemia (E83.39), Secondary Hyperparathyroidism (E21.1 ), HTN (I12.0) CAD s/p CABG, diastolic CHF, parox A flutter/fib, intra-cardiac thrombus, hx of Heparin induced thrombocytopenia, hx of seizure, blindness Plan: plan for dialysis today as per TTS. Continue with Nephrovite 1 tab/day. last Hb 10.8 hence no HANNAH with HD for now Continue with phos binders home dose BP control with meds as ordered. Glycemic control, Dialysis consistent diet Further work up/management as per primary team Dose meds/antibiotics for ESRD status. Avoid fleets enema/magnesium based laxatives. cardiology following Thanks for allowing me to participate in care of your patient. Will follow patient with you. Please call if any Qs. Dr Eric Tepmle Office: [phone] CC: chest pain, SOB and palpitations reason for consult: ESRD HPI: Pt is a 37 y/o transgender with hx of ESRD on hemodialysis (TTS) via permacath, chronic anemia, hyperphosphatemia, secondary hyperparathyroidism, Diabetes Mellitus, hypertension, CAD s/p CABG, diastolic CHF, pA flutter/fib, intra-cardiac thrombus, Heparin induced thrombocytopenia in past presented with complaints of SOB and chronic chest pain, palpitation which is better, c/o chronic shortness of breath but better ROS: All other negative except as in HPI. now better improved chronic chest pain , no GI symptoms. better SOB today. had rapid response for tachycardia no new complaints Physical Examination: seen on HD General Appearance: in no acute respiratory distress, co-operative . Vitals reviewed and noted as below Head; Atraumatic, normocephalic ENT: no ulcers no thrush. Tongue is midline. Oropharynx: no rash or ulcers. EYES: Pt is blind both eyes Neck; supple no lymphadenopathy, no thyromegaly or bruit Lungs: Normal respiratory rate/effort. Breath sounds bilateral clear Heart: Normal rate. s1s2 normal. No rub or gallop. Extremities: no edema. No varicose veins. has b/l BKA. Neurological: Patient is awake follow commands no focal deficit Skin: Warm and dry. Normal turgor. No rash. Palpitation: Normal elasticity for age Abdomen: Abdomen is soft. Bowel sounds +. There is no abdominal tenderness, no guarding/rigidity or organomegaly Psych: limited insight and has normal affect/mood MSK: no joint tenderness or swelling. Digits and nails normal, no deformity : kidney or bladder not palpable Access: permacath Labs/imaging reviewed. Past medical history, past surgical history, family history, social history, allergy reviewed and noted as below Family Hx: no hx of CKD. Non contributory Objective - Vital Signs/Intake and Output Vital Signs (last 24 hours): Temp Pulse Resp BP Pulse Ox 98 F 71 18 141/72 100 04/29/18 09:30 04/29/18 10:13 04/29/18 09:30 04/29/18 12:00 04/29/18 09:30 - Medications Medications: Current Medications Albuterol/Ipratropium (Duoneb 3 Mg/0.5 Mg (3 Ml) Ud) 3 ml IH RQ4 [facility] Last Admin: 04/29/18 08:21 Dose: Not Given Amiodarone HCl (Cordarone) 200 mg PO DAILY [facility] Last Admin: 04/28/18 09:20 Dose: 200 mg Amlodipine Besylate (Norvasc) 10 mg PO DAILY [facility] Last Admin: 04/28/18 09:19 Dose: 10 mg Apixaban (Eliquis) 2.5 mg PO BID [facility] Last Admin: 04/28/18 18:16 Dose: 2.5 mg Aspirin (Aspirin Chewable) 81 mg PO DAILY [facility] Last Admin: 04/28/18 09:19 Dose: 81 mg Calcitriol (Rocaltrol) 0.25 mcg PO TTS [facility] Carvedilol (Coreg) 12.5 mg PO BID [facility] Last Admin: 04/28/18 18:17 Dose: 12.5 mg Diltiazem HCl (Cardizem) 30 mg PO QID [facility] Last Admin: 04/28/18 22:02 Dose: Not Given Docusate Sodium (Colace) 100 mg PO BID PRN PRN Reason: Constipation Ergocalciferol (Drisdol 50,000 Intl Units Cap) 1 cap PO Q7D [facility] Last Admin: 04/26/18 12:24 Dose: 1 cap Hydromorphone HCl (Dilaudid) 1 mg IVP Q6H PRN PRN Reason: Pain, moderate (4-7) Last Admin: 04/29/18 10:14 Dose: 1 mg Insulin Aspart (Novolog) 0 unit SC [facility] PRN Reason: Protocol Last Admin: 04/29/18 08:31 Dose: Not Given Insulin Glargine (Lantus) 18 unit SC [facility] Last Admin: 04/28/18 21:58 Dose: 18 units Isosorbide Mononitrate (Imdur) 60 mg PO DAILY [facility] Last Admin: 04/28/18 09:21 Dose: 60 mg Losartan Potassium (Cozaar) 100 mg PO DAILY [facility] Last Admin: 04/28/18 09:20 Dose: 100 mg Ranolazine (Ranexa) 500 mg PO BID [facility] Rosuvastatin Calcium (Crestor) 10 mg PO HS [facility] Last Admin: 04/28/18 21:59 Dose: 10 mg Valproate Sodium (Depakene Cap) 250 mg PO QID [facility] Last Admin: 04/28/18 21:59 Dose: 250 mg Vitamin B Complex/Vit C/Folic Acid (Nephro-Courtney) 1 tab PO 0800 [facility] Last Admin: 04/29/18 08:26 Dose: 1 tab - Labs Labs: 04/26/18 01:02 04/26/18 01:02 PT 13.4 SECONDS (9.7-12.2) H 04/26/18 01:02 INR 1.2 04/26/18 01:02 APTT 24 SECONDS (21-34) 04/26/18 01:02
[2018-04-29] MEDS: Ranolazine 500 mg Extended Release Tablets PO SCH ×2 (13:42→18:09)
[2018-04-29 15:49] VITALS: RESP 20
--- NOTE | 2018-04-29 16:54 | CARD ---
APPROVED REPORT Date of service: 04/26/2018 EKG Measurement Heart [id number] <Conclusion> Atrial fibrillation with rapid ventricular response Left ventricular hypertrophy with QRS widening ST & T wave abnormality, consider lateral ischemia Abnormal ECG
--- NOTE | 2018-04-29 16:55 | CARD ---
APPROVED REPORT Date of service: 04/26/2018 EKG Measurement Heart [id number] <Conclusion> Atrial flutter with variable AV block Inferior infarct, age undetermined ST & T wave abnormality, consider lateral ischemia Abnormal ECG
[2018-04-29] MEDS: (Lantus) Insulin Glargine, Recombinant SC SCH (22:23)
[2018-04-30] MEDS: Albuterol-Ipratrop 3 mg / 0.5 (3 ml) UD IH SCH ×4 (00:38→13:13)
[2018-04-30] MEDS: HYDROmorphone 1 mg/ml ISec IVP PRN ×2 (04:52→11:56)
[2018-04-30] MEDS: Multivitamin Vitamin B Complex (Nephro-Vite) Tab PO SCH (08:08)
[2018-04-30] MEDS: (Novolog) Insulin Aspart, Recombinant 100 u/ml 10 ml vial SC SCH ×2 (08:09→13:27)
[2018-04-30 08:36] VITALS: TEMP 98.2
[2018-04-30 09:07] VITALS: PULSE 64; O2SAT 97
[2018-04-30] MEDS: Ranolazine 500 mg Extended Release Tablets PO SCH (09:38)
[2018-04-30 09:59] VITALS: BP 163/78
--- NOTE | 2018-04-30 10:30 | CP.PCM.PN ---
Subjective - Date & Time of Evaluation Date of Evaluation: 04/30/18 Time of Evaluation: 10:28 - Subjective Subjective: on and off chest pain less sob no palpitation for dailysis today Objective - Vital Signs/Intake and Output Vital Signs (last 24 hours): Temp Pulse Resp BP Pulse Ox 98.2 F 64 20 163/78 H 97 04/30/18 07:45 04/30/18 07:45 04/30/18 07:45 04/30/18 09:59 04/30/18 07:45 - Medications Medications: Current Medications Albuterol/Ipratropium (Duoneb 3 Mg/0.5 Mg (3 Ml) Ud) 3 ml IH RQ4 [facility] Last Admin: 04/30/18 04:20 Dose: Not Given Amiodarone HCl (Cordarone) 200 mg PO DAILY [facility] Last Admin: 04/30/18 09:35 Dose: 200 mg Amlodipine Besylate (Norvasc) 10 mg PO DAILY [facility] Last Admin: 04/30/18 09:35 Dose: 10 mg Apixaban (Eliquis) 2.5 mg PO BID [facility] Last Admin: 04/30/18 09:37 Dose: 2.5 mg Aspirin (Aspirin Chewable) 81 mg PO DAILY [facility] Last Admin: 04/30/18 09:35 Dose: 81 mg Calcitriol (Rocaltrol) 0.25 mcg PO TTS [facility] Last Admin: 04/29/18 12:53 Dose: Not Given Carvedilol (Coreg) 12.5 mg PO BID [facility] Last Admin: 04/30/18 09:59 Dose: 12.5 mg Diltiazem HCl (Cardizem) 30 mg PO QID [facility] Last Admin: 04/30/18 09:54 Dose: 30 mg Docusate Sodium (Colace) 100 mg PO BID PRN PRN Reason: Constipation Last Admin: 04/30/18 09:35 Dose: 100 mg Ergocalciferol (Drisdol 50,000 Intl Units Cap) 1 cap PO Q7D [facility] Last Admin: 04/26/18 12:24 Dose: 1 cap Hydromorphone HCl (Dilaudid) 1 mg IVP Q6H PRN PRN Reason: Pain, moderate (4-7) Last Admin: 04/30/18 04:52 Dose: 1 mg Insulin Aspart (Novolog) 0 unit SC [facility] PRN Reason: Protocol Last Admin: 04/30/18 08:09 Dose: 2 units Insulin Glargine (Lantus) 18 unit SC HS [facility] Last Admin: 04/29/18 22:23 Dose: 18 units Isosorbide Mononitrate (Imdur) 60 mg PO DAILY [facility] Last Admin: 04/30/18 10:07 Dose: 60 mg Losartan Potassium (Cozaar) 100 mg PO DAILY [facility] Last Admin: 04/30/18 09:35 Dose: 100 mg Ranolazine (Ranexa) 500 mg PO BID [facility] Last Admin: 04/30/18 09:38 Dose: 500 mg Rosuvastatin Calcium (Crestor) 10 mg PO HS [facility] Last Admin: 04/29/18 22:26 Dose: 10 mg Valproate Sodium (Depakene Cap) 250 mg PO QID [facility] Last Admin: 04/30/18 09:37 Dose: 250 mg Vitamin B Complex/Vit C/Folic Acid (Nephro-Courtney) 1 tab PO 0800 [facility] Last Admin: 04/30/18 08:08 Dose: 1 tab - Labs Labs: 04/26/18 01:02 04/26/18 01:02 PT 13.4 SECONDS (9.7-12.2) H 04/26/18 01:02 INR 1.2 04/26/18 01:02 APTT 24 SECONDS (21-34) 04/26/18 01:02 - Constitutional Appears: Non-toxic - Head Exam Head Exam: NORMAL INSPECTION - Neck Exam Neck Exam: Full ROM - Respiratory Exam Respiratory Exam: Clear to Ausculation Bilateral - Cardiovascular Exam Cardiovascular Exam: REGULAR RHYTHM - GI/Abdominal Exam GI & Abdominal Exam: Normal Bowel Sounds - Rectal Exam Rectal Exam: NORMAL INSPECTION - Exam Additional comments: klinfilter - Extremities Exam Additional comments: bilateral ampution - Back Exam Back Exam: CVA tenderness (L) - Neurological Exam Neurological Exam: Alert, Awake, Oriented x3 - Psychiatric Exam Psychiatric exam: Normal Affect - Skin Skin Exam: Pallor Assessment and Plan - Assessment and Plan (Free Text) Assessment: chest pain cad chf esrf dm at f improved Plan: my d/c after dialysis
--- NOTE | 2018-04-30 12:52 | CP.PCM.PN ---
Subjective - Date & Time of Evaluation Date of Evaluation: 04/30/18 Time of Evaluation: 12:50 - Subjective Subjective: PT SEEN BY DR. BELL AND CLEARED FOR D/C HOME TODAY. PER PT HE IS HAVING ANOTHER HD SESSION TODAY; HOWEVER, I SPOKE WITH DR. JORDAN AND CLARIFIED THAT THE PT DOES NOT NEED AN ADDITIONAL HD PRIOR TO D/C AND CAN RESUME AT HIS USUAL HD LOCATION TTS. SW TO ARRANGE TRANSPORTATION FOR D/C HOME. NEW RX GIVEN FOR COREG (DOSE OF TABS WAS DIFFERENT FOR HOME RX PRIOR) AND CARDIZEM (STARTED HERE) . NO FURTHER ORDERS. -FOLLOW UP WITH DR. BELL IN THE OFFICE WITHIN 1 WEEK---CALL THE OFFICE TO MAKE YOUR APPOINTMENT TIME. -FOLLOW UP WITH DR. MONROE OR DR. JORDAN USUAL. -CONTINUE YOUR DIALYSIS USUAL---DO NOT MISS ANY SESSIONS. -CONTINUE HOME MEDICATIONS USUAL. -NEW PRESCRIPTIONS FOR COREG AND CARDIZEM SENT TO YOUR PHARMACY. -FOR FURTHER CONCERNS OR QUESTIONS, CONTACT DR. BELL. Objective - Vital Signs/Intake and Output Vital Signs (last 24 hours): Temp Pulse Resp BP Pulse Ox 98.2 F 64 20 163/78 H 97 04/30/18 07:45 04/30/18 07:45 04/30/18 07:45 04/30/18 09:59 04/30/18 07:45 - Medications Medications: Current Medications Albuterol/Ipratropium (Duoneb 3 Mg/0.5 Mg (3 Ml) Ud) 3 ml IH RQ4 [facility] Last Admin: 04/30/18 04:20 Dose: Not Given Amiodarone HCl (Cordarone) 200 mg PO DAILY [facility] Last Admin: 04/30/18 09:35 Dose: 200 mg Amlodipine Besylate (Norvasc) 10 mg PO DAILY [facility] Last Admin: 04/30/18 09:35 Dose: 10 mg Apixaban (Eliquis) 2.5 mg PO BID [facility] Last Admin: 04/30/18 09:37 Dose: 2.5 mg Aspirin (Aspirin Chewable) 81 mg PO DAILY [facility] Last Admin: 04/30/18 09:35 Dose: 81 mg Calcitriol (Rocaltrol) 0.25 mcg PO TTS [facility] Last Admin: 04/29/18 12:53 Dose: Not Given Carvedilol (Coreg) 12.5 mg PO BID [facility] Last Admin: 04/30/18 09:59 Dose: 12.5 mg Diltiazem HCl (Cardizem) 30 mg PO QID [facility] Last Admin: 04/30/18 09:54 Dose: 30 mg Docusate Sodium (Colace) 100 mg PO BID PRN PRN Reason: Constipation Last Admin: 04/30/18 09:35 Dose: 100 mg Ergocalciferol (Drisdol 50,000 Intl Units Cap) 1 cap PO Q7D [facility] Last Admin: 04/26/18 12:24 Dose: 1 cap Hydromorphone HCl (Dilaudid) 1 mg IVP Q6H PRN PRN Reason: Pain, moderate (4-7) Last Admin: 04/30/18 11:56 Dose: 1 mg Insulin Aspart (Novolog) 0 unit SC [facility] PRN Reason: Protocol Last Admin: 04/30/18 08:09 Dose: 2 units Insulin Glargine (Lantus) 18 unit SC [facility] Last Admin: 04/29/18 22:23 Dose: 18 units Isosorbide Mononitrate (Imdur) 60 mg PO DAILY [facility] Last Admin: 04/30/18 10:07 Dose: 60 mg Losartan Potassium (Cozaar) 100 mg PO DAILY [facility] Last Admin: 04/30/18 09:35 Dose: 100 mg Ranolazine (Ranexa) 500 mg PO BID [facility] Last Admin: 04/30/18 09:38 Dose: 500 mg Rosuvastatin Calcium (Crestor) 10 mg PO [facility] Last Admin: 04/29/18 22:26 Dose: 10 mg Valproate Sodium (Depakene Cap) 250 mg PO QID [facility] Last Admin: 04/30/18 09:37 Dose: 250 mg Vitamin B Complex/Vit C/Folic Acid (Nephro-Courtney) 1 tab PO 0800 [facility] Last Admin: 04/30/18 08:08 Dose: 1 tab - Labs Labs: 04/26/18 01:02 04/26/18 01:02 PT 13.4 SECONDS (9.7-12.2) H 04/26/18 01:02 INR 1.2 04/26/18 01:02 APTT 24 SECONDS (21-34) 04/26/18 01:02
--- NOTE | 2018-04-30 13:21 | IP.NPCORE ---
Heart Failure Core Measure - Heart Failure Ejection Fraction: 40 % or Greater RAÚL Inhibitor Prescribed: No Contraindication/Reason for not providing: ESRD Beta-Andrew Prescribed: Carvedilol Angiotensin II Receptor Andrew Prescribed: No Contraindication/Reason for not providing: ESRD AnticoagulationTherapy for Atrial Fibrillation/Atrialflutter: Yes Aldosterone Antagonist Prescribed: No Contraindication/Reason for not providing: ESRD Hydralazine Nitrate Prescribed: No Contraindication/Reason for not providing: EF > 40 Implantable Cardioverter Defibrillator Therapy: No Contraindication/Reason for not providing: EF > 40 Cardiac Resynchronization Therapy Prescribed: No Contraindication/Reason for not providing: EF > 40 - Follow up Will be discharged to: Home Follow Up Date (must be within 7 days from discharge): 05/06/18 Follow Up Time: 09:00
--- NOTE | 2018-04-30 14:51 | CP.PCM.PN ---
Subjective - Date & Time of Evaluation Date of Evaluation: 04/30/18 Time of Evaluation: 14:51 - Subjective Subjective: Nephrology Consultation Note: Assessment:stable SOB, chronic chest pain, A flutter Diabetic chronic Kidney Disease (E11.22) Hypertensive Chronic Kidney Disease (I12.0) End stage renal disease (N18.6) dependence on hemodialysis (Z99.2) (TTS) via AVF Anemia (D64.9), Hyperphosphatemia (E83.39), Secondary Hyperparathyroidism (E21.1 ), HTN (I12.0) CAD s/p CABG, diastolic CHF, parox A flutter/fib, intra-cardiac thrombus, hx of Heparin induced thrombocytopenia, hx of seizure, blindness Plan: plan for dialysis as per TTS. Continue with Nephrovite 1 tab/day. last Hb 10.8 hence no HANNAH with HD for now Continue with phos binders home dose BP control with meds as ordered. Glycemic control, Dialysis consistent diet Further work up/management as per primary team Dose meds/antibiotics for ESRD status. Avoid fleets enema/magnesium based laxatives. cardiology following pt stable for d/c from renal perspective when planned Thanks for allowing me to participate in care of your patient. Will follow patient with you. Please call if any Qs. had d/w team Dr Eric Temple Office: [phone] CC: chest pain, SOB and palpitations reason for consult: ESRD HPI: Pt is a 37 y/o transgender with hx of ESRD on hemodialysis (TTS) via permacath, chronic anemia, hyperphosphatemia, secondary hyperparathyroidism, Diabetes Mellitus, hypertension, CAD s/p CABG, diastolic CHF, pA flutter/fib, intra-cardiac thrombus, Heparin induced thrombocytopenia in past presented with complaints of SOB and chronic chest pain, palpitation which is better, c/o chronic shortness of breath but better ROS: All other negative except as in HPI. now better improved chronic chest pain , no GI symptoms. better SOB today no new complaints Physical Examination: General Appearance: in no acute respiratory distress, co-operative . Vitals reviewed and noted as below Head; Atraumatic, normocephalic ENT: no ulcers no thrush. Tongue is midline. Oropharynx: no rash or ulcers. EYES: Pt is blind both eyes Neck; supple no lymphadenopathy, no thyromegaly or bruit Lungs: Normal respiratory rate/effort. Breath sounds bilateral clear Heart: Normal rate. s1s2 normal. No rub or gallop. Extremities: no edema. No varicose veins. has b/l BKA. Neurological: Patient is awake follow commands no focal deficit Skin: Warm and dry. Normal turgor. No rash. Palpitation: Normal elasticity for age Abdomen: Abdomen is soft. Bowel sounds +. There is no abdominal tenderness, no guarding/rigidity or organomegaly Psych: limited insight and has normal affect/mood MSK: no joint tenderness or swelling. Digits and nails normal, no deformity : kidney or bladder not palpable Access: permacath Labs/imaging reviewed. Past medical history, past surgical history, family history, social history, allergy reviewed and noted as below Family Hx: no hx of CKD. Non contributory Objective - Vital Signs/Intake and Output Vital Signs (last 24 hours): Temp Pulse Resp BP Pulse Ox 98.2 F 64 20 163/78 H 97 04/30/18 07:45 04/30/18 07:45 04/30/18 07:45 04/30/18 09:59 04/30/18 07:45 - Medications Medications: Current Medications Albuterol/Ipratropium (Duoneb 3 Mg/0.5 Mg (3 Ml) Ud) 3 ml IH RQ4 [facility] Last Admin: 04/30/18 13:13 Dose: Not Given Amiodarone HCl (Cordarone) 200 mg PO DAILY [facility] Last Admin: 04/30/18 09:35 Dose: 200 mg Amlodipine Besylate (Norvasc) 10 mg PO DAILY [facility] Last Admin: 04/30/18 09:35 Dose: 10 mg Apixaban (Eliquis) 2.5 mg PO BID [facility] Last Admin: 04/30/18 09:37 Dose: 2.5 mg Aspirin (Aspirin Chewable) 81 mg PO DAILY [facility] Last Admin: 04/30/18 09:35 Dose: 81 mg Calcitriol (Rocaltrol) 0.25 mcg PO TTS [facility] Last Admin: 04/29/18 12:53 Dose: Not Given Carvedilol (Coreg) 12.5 mg PO BID [facility] Last Admin: 04/30/18 09:59 Dose: 12.5 mg Diltiazem HCl (Cardizem) 30 mg PO QID [facility] Last Admin: 04/30/18 13:23 Dose: 30 mg Docusate Sodium (Colace) 100 mg PO BID PRN PRN Reason: Constipation Last Admin: 04/30/18 09:35 Dose: 100 mg Ergocalciferol (Drisdol 50,000 Intl Units Cap) 1 cap PO Q7D [facility] Last Admin: 04/26/18 12:24 Dose: 1 cap Hydromorphone HCl (Dilaudid) 1 mg IVP Q6H PRN PRN Reason: Pain, moderate (4-7) Last Admin: 04/30/18 11:56 Dose: 1 mg Insulin Aspart (Novolog) 0 unit SC [facility] PRN Reason: Protocol Last Admin: 04/30/18 13:27 Dose: 2 units Insulin Glargine (Lantus) 18 unit SC [facility] Last Admin: 04/29/18 22:23 Dose: 18 units Isosorbide Mononitrate (Imdur) 60 mg PO DAILY [facility] Last Admin: 04/30/18 10:07 Dose: 60 mg Losartan Potassium (Cozaar) 100 mg PO DAILY [facility] Last Admin: 04/30/18 09:35 Dose: 100 mg Ranolazine (Ranexa) 500 mg PO BID [facility] Last Admin: 04/30/18 09:38 Dose: 500 mg Rosuvastatin Calcium (Crestor) 10 mg PO [facility] Last Admin: 04/29/18 22:26 Dose: 10 mg Valproate Sodium (Depakene Cap) 250 mg PO QID [facility] Last Admin: 04/30/18 13:23 Dose: 250 mg Vitamin B Complex/Vit C/Folic Acid (Nephro-Courtney) 1 tab PO 0800 [facility] Last Admin: 04/30/18 08:08 Dose: 1 tab - Labs Labs: 04/26/18 01:02 04/26/18 01:02 PT 13.4 SECONDS (9.7-12.2) H 04/26/18 01:02 INR 1.2 04/26/18 01:02 APTT 24 SECONDS (21-34) 04/26/18 01:02
== END 2018-04-30 16:25 | disposition home or self-care (01) | DRG 121 ==
LOC: C.ER 00:13 → C.6T 03:03
PROVIDERS: ADMIT Internal Medicine; ATTEND Internal Medicine
PROC: 5A1D70Z Performance of Urinary Filtration, Intermittent, Less than 6 Hours Per Day (ICD-10-PCS; principal; 2018-04-26)
PROC: 5A1D70Z Performance of Urinary Filtration, Intermittent, Less than 6 Hours Per Day (ICD-10-PCS; 2018-04-29)
DX: I21.4 Non-ST elevation (NSTEMI) myocardial infarction (principal); I50.32 Chronic diastolic (congestive) heart failure; E11.65 Type 2 diabetes mellitus with hyperglycemia; I13.2 Hypertensive heart and chronic kidney disease with heart failure and with stage 5 chronic kidney disease, or end stage renal disease; I48.92 Unspecified atrial flutter; J44.9 Chronic obstructive pulmonary disease, unspecified; N18.6 End stage renal disease; E83.39 Other disorders of phosphorus metabolism; F02.80 Dementia in other diseases classified elsewhere, unspecified severity, without behavioral disturbance, psychotic disturbance, mood disturbance, and anxiety; F64.9 Gender identity disorder, unspecified; G30.9 Alzheimer's disease, unspecified; G89.29 Other chronic pain; H54.8 Legal blindness, as defined in USA; I25.10 Atherosclerotic heart disease of native coronary artery without angina pectoris; I48.91 Unspecified atrial fibrillation; N25.81 Secondary hyperparathyroidism of renal origin; Z89.512 Acquired absence of left leg below knee; Z95.5 Presence of coronary angioplasty implant and graft; Z99.2 Dependence on renal dialysis

== ENCOUNTER 2018-05-07 10:25 | Inpatient (IN) | payer OTHER ==
[2018-05-07 10:25] VITALS: PULSE 110; BMI 18.8
[2018-05-07 13:45] LABS: BASO # 0.1 K/uL (0.0-0.2); BASO % 0.8 % (0.0-2.0); EOS # 0.2 K/uL (0.0-0.7); EOS % 1.8 % (0.0-4.0); HEMOGLOBIN 9.5 g/dL (12.0-18.0); LYMPH # 2.4 K/uL (1.0-4.3); MEAN CELL VOLUME 88.9 fL (80.0-94.0); MEAN CORPUSCULAR HEMOGLOBIN 29.1 pg (27.0-31.0); MEAN CORPUSCULAR HGB CONC 32.8 g/dL (33.0-37.0); MEAN PLATELET VOLUME 9.5 fL (7.2-11.7); MONO # 0.6 K/uL (0.0-0.8); MONO % 4.6 % (0.0-10.0); NEUT # 9.4 K/uL (1.8-7.0); NEUT % 73.8 % (50.0-75.0); RBC 3.25 Mil/uL (4.40-5.90); RED CELL DISTRIBUTION WIDTH 18.8 % (11.5-14.5); WHITE BLOOD COUNT 12.7 K/uL (4.8-10.8)
[2018-05-07 14:08] LABS: TROPONIN I 0.019 ng/mL (0.00-0.120)
[2018-05-07 14:23] LABS: ALB/GLOB RATIO 1.1 (1.0-2.1); CALCIUM 8.7 mg/dl (8.6-10.4)
--- NOTE | 2018-05-07 14:28 | CT ---
Date of service: 05/07/2018 PROCEDURE: CT HEAD WITHOUT CONTRAST. HISTORY: dizzy COMPARISON: Noncontrast head CT 04/29/2017. TECHNIQUE: Axial computed tomography images were obtained through the head/brain without intravenous contrast. Radiation dose: Total exam DLP = 1029.01 mGy-cm. This CT exam was performed using one or more of the following dose reduction techniques: Automated exposure control, adjustment of the mA and/or kV according to patient size, and/or use of iterative reconstruction technique. FINDINGS: HEMORRHAGE: No intracranial hemorrhage. BRAIN: Limited diffuse cerebral atrophy is reiterated. Eldridge-white matter differentiation remains within normal limits as well as overall intrinsic density of the eldridge and white matter structures above and below the tentorium as well as throughout the brainstem. There remains no mass effect. There is no suspicious interval extra-axial fluid collection. VENTRICLES: Unremarkable. No hydrocephalus. CALVARIUM: Unremarkable. PARANASAL SINUSES: Unremarkable as visualized. No significant inflammatory changes. MASTOID AIR CELLS: Unremarkable as visualized. No inflammatory changes. OTHER FINDINGS: Stable likely postinfectious or posttraumatic left globe calcifications as well as at the bilateral lenses. IMPRESSION: Stable nonacute head CT. Limited diffuse cerebral atrophy reiterated. MRI remains available for follow-up if clinically warranted. Stable bilateral globe findings as discussed above.
--- NOTE | 2018-05-07 14:33 | RAD ---
HISTORY: chest pain COMPARISON: Chest x-ray performed 04/26/18 TECHNIQUE: Chest, one view. FINDINGS: Examination limited by habitus and hypoinflation. LUNGS: Right IJ approach dialysis catheter. Mild to moderate pulmonary venous congestion. Bibasilar atelectasis/infiltrate. PLEURA: No significant pleural effusion identified. No definite pneumothorax . CARDIOVASCULAR: Median sternotomy wires. OSSEOUS STRUCTURES: No acute osseous abnormality identified. VISUALIZED UPPER ABDOMEN: Unremarkable. OTHER FINDINGS: None. IMPRESSION: Hypoinflation. Right IJ approach dialysis catheter. Mild to moderate pulmonary venous congestion. Bibasilar atelectasis/infiltrate.
--- NOTE | 2018-05-07 15:09 | C.PDOC ---
History Of Present Illness 37-year-old male, whose PMHx incldues DM, HTN, ESRD (Saturday, , Saturday dialysis) and bilateral BKAs, presents to the ED for evaluation of chest pain, shortness of breath, palpitations, and dizziness which began one hour ago. Patient notes he missed dialysis yesterday and his last full treatment was on Saturday. Patient is complaining of pain and is requesting Dilaudid. Patient denies fever, chills. Time Seen by Provider: 05/07/18 12:54 Chief Complaint (Nursing): Chest Pain History Per: Patient History/Exam Limitations: no limitations Current Symptoms Are (Timing): Still Present Quality: "Pain" Additional History Per: Patient Past Medical History Reviewed: Historical Data, Nursing Documentation, Vital Signs Vital Signs: Last Vital Signs Temp 97.5 F L 05/09/18 08:28 Pulse 77 05/09/18 08:28 Resp 20 05/09/18 08:28 BP 102/69 05/09/18 08:28 Pulse Ox 100 05/09/18 10:33 - Medical History PMH: Alzheimer's Disease, Anemia, Anxiety, Arthritis, Asthma, Atrial Fibrillation, Bronchitis, CAD, Cardia Arrhythmia, CHF, COPD, CVA, Depression, Diabetes, Deep Vein Thrombosis, Gastritis, Gastrointestinal Ulcer, Gall Bladder Disease, HTN, Hypercholesterolemia, Hypothyroidism, Pneumonia, End Stage Renal Disease, Chronic Kidney Disease, Seizures Denies: Hyperthyroidism, Kidney Stones, Sexually Transmitted Disease Surgical History: CABG (12/2009), Cholecystectomy (2011), Coronary Stent - [facility] (04/26/18) ABDOMINAL WALL SINOGRAM (12/31/13) C.A.T. SCAN OF ABDOMEN (10/31/13) CENTRAL VENOUS CATHETER PLACEMENT WITH GUIDANCE (02/10/15) CHANGE OTHER DEVICE IN TRUNK SUBCU/FASCIA, ASSEMBLER SANDAL PARTS APPROACH (06/01/17) DILATE R ANT TIB ART W DRUG-ELUT INTRALUM, PERC (08/12/15) DILATION OF LEFT FEMORAL ARTERY, PERCUTANEOUS APPROACH (07/04/16) DILATION OF RIGHT FEMORAL ARTERY, PERCUTANEOUS APPROACH (08/12/15) DILATION OF RIGHT POPLITEAL ARTERY, PERCUTANEOUS APPROACH (08/12/15) DX ULTRASOUND-HEART (01/05/13) ENTERAL INFUSION OF CONCENTRATED NUT. SUBSTANCES (06/28/13) EXCIS DEBRIDE OF WOUND, INFECT, OR BURN (08/03/14) EXCISION OF STOMACH, ENDO, DIAGN (03/03/17) EXTIRPATION OF MATTER FROM L FEM ART, PERC APPROACH (07/04/16) EXTIRPATION OF MATTER FROM R FEM ART, PERC APPROACH (08/12/15) EXTIRPATION OF MATTER FROM R POPL ART, PERC APPROACH (08/12/15) FLUOROSCOPY OF L LOW EXTREM ART USING L OSM CONTRAST (08/12/15) FLUOROSCOPY OF R LOW EXTREM ART USING L OSM CONTRAST (08/12/15) FLUOROSCOPY OF RIGHT JUGULAR VEINS, GUIDANCE (06/01/17) FREE SKIN GRAFT NEC (08/03/14) HEAD SOFT TISS X-RAY NEC (04/15/13) HEMODIALYSIS (04/28/15) INCIS W REM OF FORIEGN BODY OR DEV FROM SKIN & SUBCUT TISSUE (08/08/13) INSERT INFUSION DEV IN R INT JUGULAR VEIN, PERC (06/01/17) INSERTION OF INFUSION DEV INTO R SUBCLAV VEIN, PERC APPROACH (01/19/16) INSERTION OF INFUSION DEV INTO SUP VENA CAVA, PERC APPROACH (01/07/18) INSPECTION OF UPPER INTESTINAL TRACT, ENDO (03/03/17) INTRODUCE OF OTH THROMBOLYTIC INTO PERIPH ART, PERC APPROACH (08/12/15) LAPAROSCOPIC CHOLECYSTECTOMY (09/21/13) LOC EXC LES METATAR/TAR (06/01/14) PACKED CELL TRANSFUSION (06/01/14) PERCUTAN LIVER ASPIRAT (12/31/13) PERFORMANCE OF URINARY FILTRATION, MULTIPLE (05/17/17) PERFORMANCE OF URINARY FILTRATION, SINGLE (12/18/16) SKIN & SUBQ INCISION NEC (10/24/14) TETANUS TOXOID ADMINIST (06/13/14) TRANSFUSE NONAUT RED BLOOD CELLS IN PERIPH VEIN, PERC (04/09/17) ULTRASONOGRAPHY OF RIGHT AND LEFT HEART (04/09/17) ULTRASONOGRAPHY OF SUPERIOR VENA CAVA, GUIDANCE (01/07/18) VENOUS CATHETERIZATION FOR RENAL DIALYSIS (08/08/13) VENOUS CATHETERIZATION NEC (04/30/13) Family History: States: Unknown Family Hx - Social History Hx Tobacco Use: No Hx Alcohol Use: No Hx Substance Use: No - Immunization History Hx Tetanus Toxoid Vaccination: Yes Hx Influenza Vaccination: Yes Hx Pneumococcal Vaccination: Yes Review Of Systems Constitutional: Negative for: Fever, Chills Cardiovascular: Positive for: Chest Pain, Palpitations Respiratory: Positive for: Shortness of Breath. Negative for: Cough Gastrointestinal: Negative for: Vomiting, Abdominal Pain Musculoskeletal: Negative for: Neck Pain Neurological: Positive for: Dizziness. Negative for: Weakness, Numbness, Altered Mental Status Physical Exam - Physical Exam Appears: Non-toxic, No Acute Distress Skin: Normal Color, Warm, Dry Head: Atraumatic, Normacephalic Eye(s): bilateral: PERRL, EOMI, right: Normal Inspection, left: Other (cornea is hazy and occluded ) Oral Mucosa: Moist Neck: Supple Chest: Symmetrical, No Deformity, No Tenderness, Other (perma-cath in right upper chest wall, non tender) Cardiovascular: Rhythm Regular, No Murmur, Other (tachycardia noted ) Respiratory: Normal Breath Sounds, No Rales, No Rhonchi, No Wheezing Gastrointestinal/Abdominal: Bowel Sounds, Soft, No Tenderness, No Guarding, No Rebound Extremity: Other (bilateral BKA) Neurological/Psych: Oriented x3, Normal Speech, Normal Cognition ED Course And Treatment - Laboratory Results Result Diagrams: 05/08/18 10:24 05/08/18 10:24 O2 Sat by Pulse Oximetry: 100 (on RA) Pulse Ox Interpretation: Normal - Other Rad CXR X-Ray: Viewed By Me, Read By Radiologist Interpretation: HISTORY: chest pain. COMPARISON: Chest x-ray performed . TECHNIQUE: Chest, one view. FINDINGS: Examination limited by habitus and hypoinflation. LUNGS: Right IJ approach dialysis catheter. Mild to moderate pulmonary venous congestion. Bibasilar atelectasis/infiltrate. PLEURA : No significant pleural effusion identified. No definite pneumothorax . CARDIOVASCULAR: Median sternotomy wires. OSSEOUS STRUCTURES: No acute osseous abnormality identified. VISUALIZED UPPER ABDOMEN: Unremarkable. OTHER FINDINGS: None. IMPRESSION: Hypoinflation. Right IJ approach dialysis catheter. Mild to moderate pulmonary venous congestion. Bibasilar atelectasis/ infiltrate. - CT Scan/US CT Head Other Rad Studies (CT/US): Read By Radiologist, Radiology Report Reviewed CT/US Interpretation: PROCEDURE: CT HEAD WITHOUT CONTRAST. HISTORY: dizzy. COMPARISON: Noncontrast head CT 04/29/2017. TECHNIQUE: Axial computed tomography images were obtained through the head/brain without intravenous contrast. Radiation dose: Total exam DLP = 1029.01 mGy-cm. This CT exam was performed using one or more of the following dose reduction techniques: Automated exposure control, adjustment of the mA and/or kV according to patient size, and/or use of iterative reconstruction technique. FINDINGS: HEMORRHAGE: No intracranial hemorrhage. BRAIN: Limited diffuse cerebral atrophy is reiterated. Eldridge-white matter differentiation remains within normal limits as well as overall intrinsic density of the eldridge and white matter structures above and below the tentorium as well as throughout the brainstem. There remains no mass effect. There is no suspicious interval extra-axial fluid collection. VENTRICLES: Unremarkable. No hydrocephalus. CALVARIUM: Unremarkable. PARANASAL SINUSES: Unremarkable as visualized. No significant inflammatory changes. MASTOID AIR CELLS: Unremarkable as visualized. No inflammatory changes. OTHER FINDINGS: Stable likely postinfectious or posttraumatic left globe calcifications as well as at the bilateral lenses. IMPRESSION: Stable nonacute head CT. Limited diffuse cerebral atrophy reiterated. MRI remains available for follow-up if clinically warranted. Stable bilateral globe findings as discussed above. Medical Decision Making Medical Decision Making: Progress: Bloodwork, CT Head, CXR, EKG ordered and reviewed. discussed with Dr Eugenie Li, will admit to her service, Disposition - Disposition Disposition: HOSPITALIZED Disposition Time: 15:30 Condition: STABLE - Clinical Impression Clinical Impression: ESRD needing dialysis, Chest pain - PA / CLASS C DRIVER / Resident Statement MD/DO has reviewed & agrees with the documentation as recorded. - Scribe Statement The provider has reviewed the documentation as recorded by the Scribe (Yaneli Tavera) All medical record entries made by the Scribe were at my direction and personally dictated by me. I have reviewed the chart and agree that the record accurately reflects my personal performance of the history, physical exam, medical decision making, and the department course for this patient. I have also personally directed, reviewed, and agree with the discharge instructions and disposition.
[2018-05-07] MEDS ORDERED: Sod Polystyrene Sulf 15 gm/60 ml Susp PO ONE (16:25)
[2018-05-07] MEDS ORDERED: (Novolin R) Insulin Human Regular 100 units/ml vial IV ONE (16:27)
[2018-05-07] MEDS ORDERED: (Novolin R) Insulin Human Regular 100 units/ml vial ONE (17:00)
[2018-05-08] MEDS: Albuterol 0.083% Inhal Sol (2.5 mg/3 mL) UD INH SCH ×4 (06:01→20:06)
[2018-05-08] MEDS: HYDROmorphone 1 mg/ml ISec IVP PRN ×3 (08:39→20:28)
[2018-05-08 10:31] LABS: BASO # 0.1 K/uL (0.0-0.2); EOS # 0.2 K/uL (0.0-0.7); EOS % 2.3 % (0.0-4.0); HEMOGLOBIN 9.7 g/dL (12.0-18.0); LYMPH # 1.8 K/uL (1.0-4.3); LYMPH % 21.9 % (20.0-40.0); MEAN CELL VOLUME 89.1 fL (80.0-94.0); MEAN CORPUSCULAR HEMOGLOBIN 29.8 pg (27.0-31.0); MEAN CORPUSCULAR HGB CONC 33.4 g/dL (33.0-37.0); MEAN PLATELET VOLUME 9.8 fL (7.2-11.7); MONO # 0.6 K/uL (0.0-0.8); MONO % 6.7 % (0.0-10.0); NEUT # 5.6 K/uL (1.8-7.0); NEUT % 68.1 % (50.0-75.0); RBC 3.27 Mil/uL (4.40-5.90); RED CELL DISTRIBUTION WIDTH 19.1 % (11.5-14.5); WHITE BLOOD COUNT 8.2 K/uL (4.8-10.8)
[2018-05-08 10:59] LABS: ALB/GLOB RATIO 1.1 (1.0-2.1); ALBUMIN 3.9 g/dL (3.5-5.0); CALCIUM 8.8 mg/dl (8.6-10.4); TROPONIN I 0.022 ng/mL (0.00-0.120)
[2018-05-08 11:00] LABS: TROPONIN I 0.021 ng/mL (0.00-0.120)
--- NOTE | 2018-05-08 14:38 | CARD ---
APPROVED REPORT Date of service: 05/07/2018 EKG Measurement Heart [id number] <Conclusion> Normal sinus rhythm Left ventricular hypertrophy with QRS widening and repolarization abnormality Abnormal ECG
--- NOTE | 2018-05-08 15:39 | CP.PCM.PN ---
Subjective - Date & Time of Evaluation Date of Evaluation: 05/08/18 Time of Evaluation: 15:38 - Subjective Subjective: Nephrology Consultation Note: Assessment:critical Missed HD, hyperkaelamia, fluid overload SOB, chronic chest pain, A flutter Diabetic chronic Kidney Disease (E11.22) Hypertensive Chronic Kidney Disease (I12.0) End stage renal disease (N18.6) dependence on hemodialysis (Z99.2) (TTS) via AVF Anemia (D64.9), Hyperphosphatemia (E83.39), Secondary Hyperparathyroidism (E21.1 ), HTN (I12.0) CAD s/p CABG, diastolic CHF, parox A flutter/fib, intra-cardiac thrombus, hx of Heparin induced thrombocytopenia, hx of seizure, blindness Plan: plan for dialysis today Continue with Nephrovite 1 tab/day. HANNAH with HD for now Continue with phos binders home dose BP control with meds as ordered. Glycemic control, Dialysis consistent diet Further work up/management as per primary team Dose meds/antibiotics for ESRD status. Avoid fleets enema/magnesium based laxatives. cardiology input Thanks for allowing me to participate in care of your patient. Will follow patient with you. Please call if any Qs. Dr Eric Temple Office: [phone] CC: chest pain, SOB reason for consult: ESRD HPI: Pt is a 37 y/o transgender with hx of ESRD on hemodialysis (TTS) via permacath, chronic anemia, hyperphosphatemia, secondary hyperparathyroidism, Diabetes Mellitus, hypertension, CAD s/p CABG, diastolic CHF, pA flutter/fib, intra-cardiac thrombus, Heparin induced thrombocytopenia in past presented with complaints of SOB and chronic chest pain, missed HD ROS: All other negative except as in HPI. now better improved chronic chest pain , no GI symptoms. Physical Examination: seen on HD General Appearance: in no acute respiratory distress, co-operative . Vitals reviewed and noted as below Head; Atraumatic, normocephalic ENT: no ulcers no thrush. Tongue is midline. Oropharynx: no rash or ulcers. EYES: Pt is blind both eyes Neck; supple no lymphadenopathy, no thyromegaly or bruit Lungs: Normal respiratory rate/effort. Breath sounds bilateral decreased at bases Heart: Normal rate. s1s2 normal. No rub or gallop. Extremities: no edema. No varicose veins. has b/l BKA. Neurological: Patient is awake follow commands no focal deficit Skin: Warm and dry. Normal turgor. No rash. Palpitation: Normal elasticity for age Abdomen: Abdomen is soft. Bowel sounds +. There is no abdominal tenderness, no guarding/rigidity or organomegaly Psych: limited insight and has normal affect/mood MSK: no joint tenderness or swelling. Digits and nails normal, no deformity : kidney or bladder not palpable Access: permacath Labs/imaging reviewed. Past medical history, past surgical history, family history, social history, allergy reviewed and noted as below Family Hx: no hx of CKD. Non contributory Objective - Vital Signs/Intake and Output Vital Signs (last 24 hours): Temp Pulse Resp BP Pulse Ox 97.8 F 65 20 99/51 L 100 05/08/18 11:45 05/08/18 11:45 05/08/18 11:45 05/08/18 12:15 05/08/18 11:45 - Medications Medications: Current Medications Acetaminophen (Tylenol 325mg Tab) 650 mg PO Q6 PRN PRN Reason: Pain, Mild (1-3) Last Admin: 05/08/18 12:01 Dose: 650 mg Albuterol Sulfate (Albuterol 0.083% Inhal Pamela (2.5 Mg/3 Ml) Ud) 3 mg INH RTID [facility] Last Admin: 05/08/18 13:45 Dose: Not Given Amlodipine Besylate (Norvasc) 10 mg PO DAILY [facility] Last Admin: 05/08/18 09:36 Dose: Not Given Carvedilol (Coreg) 25 mg PO BID [facility] Last Admin: 05/08/18 09:36 Dose: Not Given Epoetin Tom (Procrit) 4,000 unit IV TTS [facility] Heparin Sodium (Porcine) (Heparin) 3,700 units IVP TTS [facility] Stop: 05/10/18 10:01 Last Admin: 05/08/18 12:04 Dose: 3,700 units Hydromorphone HCl (Dilaudid) 1 mg IVP Q4H PRN PRN Reason: Pain, severe (8-10) Last Admin: 05/08/18 14:40 Dose: 1 mg Insulin Human Regular (Novolin R) 0 unit SC ACHS [facility] PRN Reason: Protocol Isosorbide Mononitrate (Imdur) 60 mg PO DAILY [facility] Last Admin: 05/08/18 09:36 Dose: Not Given Ondansetron HCl (Zofran Inj) 4 mg IVP DAILY PRN PRN Reason: Nausea/Vomiting Last Admin: 05/08/18 15:09 Dose: 4 mg - Labs Labs: 05/08/18 10:24 05/08/18 10:24
[2018-05-08] MEDS: (Novolin R) Insulin Human Regular 100 units/ml vial SC SCH ×2 (16:02→21:22)
--- NOTE | 2018-05-08 17:08 | CP.PCM.HP ---
History of Present Illness - History of Present Illness History of Present Illness: pt came to er for chest pain couldnot sleep all night sob thigh pain and back pain Present on Admission - Present on Admission Any Indicators Present on Admission: Yes Review of Systems - Review of Systems Systems not reviewed;Unavailable: Acuity of Condition - Constitutional Constitutional: Fatigue - EENT Eyes: Loss of Peripheral Vision Ears: As Per HPI Nose/Mouth/Throat: As Per HPI - Cardiovascular Cardiovascular: Chest Pain at Rest, Dyspnea - Respiratory Respiratory: Dyspnea, Dyspnea on Exertion - Gastrointestinal Gastrointestinal: As Per HPI - Genitourinary Genitourinary: As Per HPI Additional comments: esrf - Reproductive: Male Additional comments: KLINFILTER - Musculoskeletal Additional comments: BILAT AMPUTATION - Integumentary Integumentary: As Per HPI - Neurological Neurological: Convulsions - Psychiatric Psychiatric: Depression - Endocrine Additional Comments: DMID Past Patient History - Infectious Disease Hx of Infectious Diseases: None - Tetanus Immunizations Tetanus Immunization: >10 years Ago - Past Medical History & Family History Past Medical History?: Yes - Past Social History Smoking Status: Never Smoked - CARDIAC Hx Atrial Fibrillation: Yes Hx Cardia Arrhythmia: Yes Hx Congestive Heart Failure: Yes Hx Hypercholesterolemia: Yes Hx Hypertension: Yes - PULMONARY Hx Asthma: Yes Hx Bronchitis: Yes Hx Chronic Obstructive Pulmonary Disease (COPD): Yes Hx Pneumonia: Yes - NEUROLOGICAL Hx Alzheimer's Disease: Yes Hx Seizures: Yes - HEENT Hx HEENT Problems: Yes Hx Blind: Yes (legally blind) Hx Cataracts: Yes - RENAL Hx Chronic Kidney Disease: Yes Hx Kidney Stones: No - ENDOCRINE/METABOLIC Hx Hyperthyroidism: No Hx Hypothyroidism: Yes - HEMATOLOGICAL/ONCOLOGICAL Hx Anemia: Yes - INTEGUMENTARY Hx Dermatological Problems: No - MUSCULOSKELETAL/RHEUMATOLOGICAL Hx Arthritis: Yes - GASTROINTESTINAL Hx Gall Bladder Disease: Yes Hx Gastritis: Yes - GENITOURINARY/GYNECOLOGICAL Hx Sexually Transmitted Disorders: No - PSYCHIATRIC Hx Anxiety: Yes Hx Depression: Yes Hx Substance Use: No - SURGICAL HISTORY Hx Cholecystectomy: Yes (2011) 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/2009) Hx Coronary Stent: Yes - ANESTHESIA Hx Anesthesia: Yes Hx Anesthesia Reactions: No Hx Malignant Hyperthermia: No Meds Allergies/Adverse Reactions: Allergies Allergy/AdvReac Type Severity Reaction Status Date / Time acetaminophen [From Percocet] Allergy RASH Verified 05/07/18 11:00 atenolol Allergy RASH Verified 05/07/18 11:00 digoxin Allergy RASH Verified 05/07/18 11:00 milk Allergy ITCHING Verified 05/07/18 11:00 morphine Allergy RASH Verified 05/07/18 11:00 oxycodone HCl [From Percocet] Allergy RASH Verified 05/07/18 11:00 Physical Exam - Constitutional Appears: In Acute Distress - Head Exam Head Exam: ATRAUMATIC - Eye Exam Eye Exam: Conjunctival injection - ENT Exam ENT Exam: Mucous Membranes Dry - Neck Exam Neck exam: Positive for: Full Rom - Respiratory Exam Respiratory Exam: Decreased Breath Sounds - Cardiovascular Exam Cardiovascular Exam: Tachycardia, REGULAR RHYTHM, +S1, +S2, +S4 - GI/Abdominal Exam GI & Abdominal Exam: Normal Bowel Sounds - Rectal Exam Rectal Exam: NORMAL INSPECTION - Back Exam Back exam: CVA tenderness (L) - Neurological Exam Neurological exam: Alert, Oriented x3 - Psychiatric Exam Psychiatric exam: Depressed - Skin Skin Exam: Pallor Results - Vital Signs Recent Vital Signs: Last Vital Signs Temp 97.9 F 05/08/18 16:20 Pulse 144 H 05/08/18 16:20 Resp 20 05/08/18 16:20 BP 181/87 H 05/08/18 16:20 Pulse Ox 99 05/08/18 16:20 - Labs Result Diagrams: 05/08/18 10:24 05/08/18 10:24 Labs: Laboratory Results - last 24 hr 05/07/18 05/08/18 05/08/18 19:18 06:38 10:24 WBC RBC Hgb Hct MCV MCH MCHC RDW Plt Count MPV Neut % (Auto) Lymph % (Auto) [place] % (Auto) Eos % (Auto) Baso % (Auto) Neut # (Auto) Lymph # (Auto) [place] # (Auto) Eos # (Auto) Baso # (Auto) Sodium Potassium Chloride Carbon Dioxide Anion Gap BUN Creatinine Est GFR ( Amer) Est GFR (Non-Af Amer) POC Glucose (mg/dL) 188 H 171 H Random Glucose Calcium Total Bilirubin AST ALT Alkaline Phosphatase Troponin I 0.0210 NT-Pro-B Natriuret Pep 31691 H Total Protein Albumin Globulin Albumin/Globulin Ratio 05/08/18 05/08/18 05/08/18 10:24 10:24 11:19 WBC 8.2 RBC 3.27 L Hgb 9.7 L Hct 29.2 L MCV 89.1 MCH 29.8 MCHC 33.4 RDW 19.1 H Plt Count 276 MPV 9.8 Neut % (Auto) 68.1 Lymph % (Auto) 21.9 [place] % (Auto) 6.7 Eos % (Auto) 2.3 Baso % (Auto) 1.0 Neut # (Auto) 5.6 Lymph # (Auto) 1.8 [place] # (Auto) 0.6 Eos # (Auto) 0.2 Baso # (Auto) 0.1 Sodium 138 Potassium 4.6 Chloride 93 L Carbon Dioxide 29 Anion Gap 20 BUN 41 H Creatinine 5.0 H Est GFR ( Amer) 16 Est GFR (Non-Af Amer) 13 POC Glucose (mg/dL) 157 H Random Glucose 209 H Calcium 8.8 Total Bilirubin 0.7 AST 20 ALT 15 L D Alkaline Phosphatase 163 H Troponin I 0.0220 NT-Pro-B Natriuret Pep Total Protein 7.3 Albumin 3.9 Globulin 3.4 Albumin/Globulin Ratio 1.1 Assessment & Plan - Assessment and Plan (Free Text) Assessment: CAD CHEST PAIN CHF DMID COPD BACK PAIN Plan: PER ORDERS - Date & Time Date: 05/08/18 Time: 17:12
--- NOTE | 2018-05-08 19:19 | CARD ---
APPROVED REPORT Date of service: 05/08/2018 EKG Measurement Heart [id number] [place] 172P46 [id number] <Conclusion> Normal sinus rhythm Possible Left atrial enlargement Left ventricular hypertrophy with QRS widening and repolarization abnormality Possible Inferior infarct, age undetermined Abnormal ECG
[2018-05-09] MEDS: HYDROmorphone 1 mg/ml ISec IVP PRN ×4 (02:44→20:01)
[2018-05-09] MEDS: Albuterol 0.083% Inhal Sol (2.5 mg/3 mL) UD INH SCH ×3 (07:42→19:19)
[2018-05-09] MEDS: (Novolin R) Insulin Human Regular 100 units/ml vial SC SCH ×4 (07:55→23:38)
--- NOTE | 2018-05-09 10:12 | CP.PCM.PN ---
Subjective - Date & Time of Evaluation Date of Evaluation: 05/09/18 Time of Evaluation: 10:10 - Subjective Subjective: pt has been vomiting this morning had an episode of vt last night Objective - Vital Signs/Intake and Output Vital Signs (last 24 hours): Temp Pulse Resp BP Pulse Ox 97.5 F L 77 20 102/69 100 05/09/18 08:28 05/09/18 08:28 05/09/18 08:28 05/09/18 08:28 05/09/18 08:28 Intake and Output: 05/09/18 05/09/18 06:59 18:59 Intake Total 400 Output Total 500 Balance -100 - Medications Medications: Current Medications Acetaminophen (Tylenol 325mg Tab) 650 mg PO Q6 PRN PRN Reason: Pain, Mild (1-3) Last Admin: 05/08/18 12:01 Dose: 650 mg Albuterol Sulfate (Albuterol 0.083% Inhal Pamela (2.5 Mg/3 Ml) Ud) 3 mg INH RTID [facility] Last Admin: 05/09/18 07:42 Dose: Not Given Amlodipine Besylate (Norvasc) 10 mg PO DAILY [facility] Last Admin: 05/09/18 09:36 Dose: Not Given Carvedilol (Coreg) 25 mg PO BID [facility] Last Admin: 05/09/18 09:37 Dose: Not Given Diltiazem HCl (Cardizem) 30 mg PO QID [facility] Last Admin: 05/09/18 09:37 Dose: Not Given Epoetin Tom (Procrit) 4,000 unit IV TTS [facility] Heparin Sodium (Porcine) (Heparin) 3,700 units IVP TTS [facility] Stop: 05/10/18 10:01 Last Admin: 05/08/18 12:04 Dose: 3,700 units Hydromorphone HCl (Dilaudid) 1 mg IVP Q4H PRN PRN Reason: Pain, severe (8-10) Last Admin: 05/09/18 08:01 Dose: 1 mg Insulin Human Regular (Novolin R) 0 unit SC ACHS [facility] PRN Reason: Protocol Last Admin: 05/09/18 07:55 Dose: Not Given Isosorbide Mononitrate (Imdur) 60 mg PO DAILY [facility] Last Admin: 05/08/18 17:41 Dose: 60 mg Levetiracetam (Keppra) 500 mg PO BID [facility] Last Admin: 05/09/18 09:36 Dose: Not Given Ondansetron HCl (Zofran Inj) 4 mg IVP DAILY PRN PRN Reason: Nausea/Vomiting Last Admin: 05/09/18 08:01 Dose: 4 mg Ranolazine (Ranexa) 500 mg PO BID [facility] Valproate Sodium (Depakene Cap) 250 mg PO QID [facility] Last Admin: 05/09/18 09:37 Dose: Not Given - Labs Labs: 05/08/18 10:24 05/08/18 10:24 - Constitutional Appears: In Acute Distress - Head Exam Head Exam: ATRAUMATIC - Eye Exam Eye Exam: Conjunctival injection - ENT Exam ENT Exam: Mucous Membranes Moist - Neck Exam Neck Exam: Full ROM - Respiratory Exam Respiratory Exam: Decreased Breath Sounds - Cardiovascular Exam Cardiovascular Exam: REGULAR RHYTHM Additional comments: vt last night - GI/Abdominal Exam GI & Abdominal Exam: Tenderness Additional comments: vomiting - Rectal Exam Rectal Exam: Deferred - Extremities Exam Additional comments: s/p javier amputation - Neurological Exam Neurological Exam: Alert, Awake, Oriented x3 - Psychiatric Exam Psychiatric exam: Depressed - Skin Skin Exam: Pallor Assessment and Plan - Assessment and Plan (Free Text) Assessment: ac vomiting nonsustained vt cad chf esrf dm Plan: as per orders
[2018-05-09] MEDS: Ranolazine 500 mg Extended Release Tablets PO SCH ×2 (11:26→18:37)
[2018-05-09 11:55] LABS: CK-MB 1.43 ng/mL (0.0-3.38)
[2018-05-09 12:58] LABS: TROPONIN I 0.165 ng/mL (0.00-0.120)
--- NOTE | 2018-05-09 14:22 | CP.PCM.CON ---
History of Present Illness - History of Present Illness History of Present Illness: Presents with another episode of CP, palpitation, N/V after missed HD currently describes chronic sharp chest pains 2/10, not associated with diaphoresis, SOB or palpitation. No fevers or chills Well known patient Multiple admissions Presents with acute on chronic CP and palpitation Known AFIB/Flutter and was scheduled for aflutter ablation recently but deferred due to finding of clot around the permacath right atrium : started on eliquis 2.5 BID but unlikely taking CArdiac HX; 1. Severe multivessel CAD, prior CABG and PCI nd residual small vessel severe diabetic disease not amenable to PCI: on medical therapy 2. Acute on chronic mild-mod systolic and Grade 3 diastolic dysfunction 3. AFLUTTER/FIB paroxysmal: maintained on amiodarone 3. B/L BKA, ESRD, on HD, legally blind, Kleinfelters syndrome Chronic CAD: not sutiable for further PCI Chronic Mild-mod LV dysfunction with acute on chronic diastolic dysfunction Uncontrolled DM Recurrent AFLutter with RVR: aflutter ablation deferred due to finding of RA thrombus around permacath site [place] [facility] [place] Legally blind Review of Systems - Review of Systems All systems: reviewed and no additional remarkable complaints except Past Patient History - Infectious Disease Hx of Infectious Diseases: None - Tetanus Immunizations Tetanus Immunization: >10 years Ago - Past Medical History & Family History Past Medical History?: Yes - Past Social History Smoking Status: Never Smoked - CARDIAC Hx Atrial Fibrillation: Yes Hx Cardia Arrhythmia: Yes Hx Congestive Heart Failure: Yes Hx Hypercholesterolemia: Yes Hx Hypertension: Yes - PULMONARY Hx Asthma: Yes Hx Bronchitis: Yes Hx Chronic Obstructive Pulmonary Disease (COPD): Yes Hx Pneumonia: Yes - NEUROLOGICAL Hx Alzheimer's Disease: Yes Hx Seizures: Yes - HEENT Hx HEENT Problems: Yes Hx Blind: Yes (legally blind) Hx Cataracts: Yes - RENAL Hx Chronic Kidney Disease: Yes Hx Kidney Stones: No - ENDOCRINE/METABOLIC Hx Hyperthyroidism: No Hx Hypothyroidism: Yes - HEMATOLOGICAL/ONCOLOGICAL Hx Anemia: Yes - INTEGUMENTARY Hx Dermatological Problems: No - MUSCULOSKELETAL/RHEUMATOLOGICAL Hx Arthritis: Yes - GASTROINTESTINAL Hx Gall Bladder Disease: Yes Hx Gastritis: Yes - GENITOURINARY/GYNECOLOGICAL Hx Sexually Transmitted Disorders: No - PSYCHIATRIC Hx Anxiety: Yes Hx Depression: Yes Hx Substance Use: No - SURGICAL HISTORY Hx Cholecystectomy: Yes (2011) 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/2009) Hx Coronary Stent: Yes - ANESTHESIA Hx Anesthesia: Yes Hx Anesthesia Reactions: No Hx Malignant Hyperthermia: No Meds Allergies/Adverse Reactions: Allergies Allergy/AdvReac Type Severity Reaction Status Date / Time acetaminophen [From Percocet] Allergy RASH Verified 05/07/18 11:00 atenolol Allergy RASH Verified 05/07/18 11:00 digoxin Allergy RASH Verified 05/07/18 11:00 milk Allergy ITCHING Verified 05/07/18 11:00 morphine Allergy RASH Verified 05/07/18 11:00 oxycodone HCl [From Percocet] Allergy RASH Verified 05/07/18 11:00 - Medications Medications: Current Medications Acetaminophen (Tylenol 325mg Tab) 650 mg PO Q6 PRN PRN Reason: Pain, Mild (1-3) Last Admin: 05/08/18 12:01 Dose: 650 mg Albuterol Sulfate (Albuterol 0.083% Inhal Pamela (2.5 Mg/3 Ml) Ud) 3 mg INH RTID [facility] Last Admin: 05/09/18 13:43 Dose: Not Given Amlodipine Besylate (Norvasc) 10 mg PO DAILY [facility] Last Admin: 05/09/18 09:36 Dose: Not Given Carvedilol (Coreg) 25 mg PO BID [facility] Last Admin: 05/09/18 09:37 Dose: Not Given Diltiazem HCl (Cardizem) 30 mg PO QID [facility] Last Admin: 05/09/18 14:14 Dose: 30 mg Epoetin Tom (Procrit) 4,000 unit IV TTS [facility] Heparin Sodium (Porcine) (Heparin) 3,700 units IVP TTS [facility] Stop: 05/10/18 10:01 Last Admin: 05/08/18 12:04 Dose: 3,700 units Hydromorphone HCl (Dilaudid) 1 mg IVP Q4H PRN PRN Reason: Pain, severe (8-10) Last Admin: 05/09/18 14:14 Dose: 1 mg Insulin Human Regular (Novolin R) 0 unit SC ACHS [facility] PRN Reason: Protocol Last Admin: 05/09/18 12:45 Dose: Not Given Isosorbide Mononitrate (Imdur) 60 mg PO DAILY [facility] Last Admin: 09/07/18 11:26 Dose: Not Given Levetiracetam (Keppra) 500 mg PO BID [facility] Last Admin: 05/09/18 09:36 Dose: Not Given Losartan Potassium (Cozaar) 50 mg PO DAILY [facility] Last Admin: 05/09/18 11:26 Dose: Not Given Ondansetron HCl (Zofran Inj) 4 mg IVP Q6H PRN PRN Reason: Nausea/Vomiting Last Admin: 05/09/18 14:14 Dose: 4 mg Ranolazine (Ranexa) 500 mg PO BID [facility] Last Admin: 05/09/18 11:26 Dose: Not Given Valproate Sodium (Depakene Cap) 250 mg PO QID [facility] Last Admin: 05/09/18 14:14 Dose: 250 mg Physical Exam - Constitutional Appears: No Acute Distress, Chronically Ill - Head Exam Head Exam: ATRAUMATIC, NORMAL INSPECTION, NORMOCEPHALIC - Eye Exam Eye Exam: absent: Normal appearance - ENT Exam ENT Exam: Mucous Membranes Moist - Neck Exam Neck exam: Positive for: Full Rom, Normal Inspection - Respiratory Exam Respiratory Exam: Clear to Auscultation Bilateral, NORMAL BREATHING PATTERN. absent: Rhonchi, Wheezes - Cardiovascular Exam Cardiovascular Exam: REGULAR RHYTHM, +S1, +S2, Systolic Murmur. absent: Gallop , Rubs - GI/Abdominal Exam GI & Abdominal Exam: Normal Bowel Sounds, Soft. absent: Tenderness - Extremities Exam Extremities exam: Negative for: normal inspection (b/l BKA) - Neurological Exam Neurological exam: Alert, Oriented x3 - Psychiatric Exam Psychiatric exam: Normal Affect - Skin Skin Exam: Normal Color, Warm Results - Vital Signs Recent Vital Signs: Last Vital Signs Temp 97.5 F L 05/09/18 08:28 Pulse 77 05/09/18 12:00 Resp 20 05/09/18 08:28 BP 102/69 05/09/18 08:28 Pulse Ox 100 05/09/18 12:00 - Labs Result Diagrams: 05/08/18 10:24 05/08/18 10:24 Labs: Laboratory Results - last 24 hr 05/08/18 05/08/18 05/09/18 20:18 21:15 06:08 POC Glucose (mg/dL) 204 H 208 H Total Creatine Kinase CK-MB (Mass) Troponin I 0.0500 05/09/18 05/09/18 11:04 11:21 POC Glucose (mg/dL) 253 H Total Creatine Kinase 25 L CK-MB (Mass) 1.43 Troponin I 0.1650 H* - EKG Data EKG Interpreted by: Myself (NSR, LVH lateral strain, old inferior infarct, no new changes compared to prior) Assessment & Plan - Assessment and Plan (Free Text) Assessment: CHEST PAIN - chronic recurrent: likely musculoskeleta - minimal troponin is c/w ESRD and possibly microvascular disease and demand ischemia - known severe CAD: and small residual [place] vessel CAD with failed bypass grafts: too small for any additional PCI - No longer on ASA, no longer on statin: resume if no CI - cont ranexa and imdur Acute on chronic mild-mod systolic and diastolic dysfunction - maintain fluid status with regular HD - cont coreg ESRD - cont HD HTN - labile - cont current meds and titrate as tolerated - coreg 25 BID, norvasc 10, losartan 50, - add hydralazine if needed DM - uncontrolled - probable gastroparesis - PPI and zofran Aflutter - paroxysmal - now NSR - HX fo clot around permacath: AFLUTTER ABLATION in future after complete anticoagulation course. - Patient is no longer on eliquis : resume if no CI - cont coreg and cardizem for now Acetaminophen (Tylenol 325mg Tab) 650 mg PO Q6 PRN PRN Reason: Pain, Mild (1-3) Last Admin: 05/08/18 12:01 Dose: 650 mg Albuterol Sulfate (Albuterol 0.083% Inhal Pamela (2.5 Mg/3 Ml) Ud) 3 mg INH RTID [facility] Last Admin: 05/09/18 13:43 Dose: Not Given Amlodipine Besylate (Norvasc) 10 mg PO DAILY [facility] Last Admin: 05/09/18 09:36 Dose: Not Given Carvedilol (Coreg) 25 mg PO BID [facility] Last Admin: 05/09/18 09:37 Dose: Not Given Diltiazem HCl (Cardizem) 30 mg PO QID [facility] Last Admin: 05/09/18 14:14 Dose: 30 mg Epoetin Tom (Procrit) 4,000 unit IV TTS [facility] Heparin Sodium (Porcine) (Heparin) 3,700 units IVP TTS [facility] Stop: 05/10/18 10:01 Last Admin: 05/08/18 12:04 Dose: 3,700 units Hydromorphone HCl (Dilaudid) 1 mg IVP Q4H PRN PRN Reason: Pain, severe (8-10) Last Admin: 05/09/18 14:14 Dose: 1 mg Insulin Human Regular (Novolin R) 0 unit SC ACHS [facility] PRN Reason: Protocol Last Admin: 05/09/18 12:45 Dose: Not Given Isosorbide Mononitrate (Imdur) 60 mg PO DAILY [facility] Last Admin: 05/09/18 11:26 Dose: Not Given Levetiracetam (Keppra) 500 mg PO BID [facility] Last Admin: 05/09/18 09:36 Dose: Not Given Losartan Potassium (Cozaar) 50 mg PO DAILY [facility] Last Admin: 05/09/18 11:26 Dose: Not Given Ondansetron HCl (Zofran Inj) 4 mg IVP Q6H PRN PRN Reason: Nausea/Vomiting Last Admin: 05/09/18 14:14 Dose: 4 mg Ranolazine (Ranexa) 500 mg PO BID [facility] Last Admin: 05/09/18 11:26 Dose: Not Given Valproate Sodium (Depakene Cap) 250 mg PO QID [facility] Last Admin: 05/09/18 14:14 Dose: 250 mg
[2018-05-10] MEDS: HYDROmorphone 1 mg/ml ISec IVP PRN ×3 (04:45→16:02)
[2018-05-10] MEDS: Albuterol 0.083% Inhal Sol (2.5 mg/3 mL) UD INH SCH ×2 (07:31→13:27)
[2018-05-10] MEDS: (Novolin R) Insulin Human Regular 100 units/ml vial SC SCH ×3 (08:49→17:44)
[2018-05-10] MEDS ORDERED: EPOETIN ALFA 4,000 UNIT/ML ML Dialysis IV SCH (10:00)
[2018-05-10] MEDS: Ranolazine 500 mg Extended Release Tablets PO SCH ×2 (10:09→18:17)
--- NOTE | 2018-05-10 10:36 | CP.PCM.PN ---
Subjective - Date & Time of Evaluation Date of Evaluation: 05/10/18 Time of Evaluation: 10:33 - Subjective Subjective: vomited once when ate eggs now feels ok no chest pain Objective - Vital Signs/Intake and Output Vital Signs (last 24 hours): Temp Pulse Resp BP Pulse Ox 97.4 F L 69 20 159/69 H 100 05/10/18 08:00 05/10/18 08:00 05/10/18 08:00 05/10/18 08:00 05/10/18 08:00 - Medications Medications: Current Medications Acetaminophen (Tylenol 325mg Tab) 650 mg PO Q6 PRN PRN Reason: Pain, Mild (1-3) Last Admin: 05/08/18 12:01 Dose: 650 mg Albuterol Sulfate (Albuterol 0.083% Inhal Pamela (2.5 Mg/3 Ml) Ud) 3 mg INH RTID [facility] Last Admin: 05/10/18 07:31 Dose: Not Given Amlodipine Besylate (Norvasc) 10 mg PO DAILY [facility] Last Admin: 05/10/18 10:18 Dose: Not Given Carvedilol (Coreg) 25 mg PO BID [facility] Last Admin: 05/10/18 10:17 Dose: Not Given Diltiazem HCl (Cardizem) 30 mg PO QID [facility] Last Admin: 05/10/18 10:09 Dose: 30 mg Epoetin Tom (Procrit) 4,000 unit IV TTS [facility] Hydromorphone HCl (Dilaudid) 1 mg IVP Q4H PRN PRN Reason: Pain, severe (8-10) Last Admin: 05/10/18 10:09 Dose: 1 mg Insulin Human Regular (Novolin R) [address] [facility] PRN Reason: Protocol Last Admin: 05/10/18 08:49 Dose: Not Given Isosorbide Mononitrate (Imdur) 60 mg PO DAILY [facility] Last Admin: 05/10/18 10:18 Dose: Not Given Levetiracetam (Keppra) 500 mg PO BID [facility] Last Admin: 05/10/18 10:09 Dose: 500 mg Losartan Potassium (Cozaar) 50 mg PO DAILY [facility] Last Admin: 05/10/18 10:17 Dose: Not Given Ondansetron HCl (Zofran Inj) 4 mg IVP Q6H PRN PRN Reason: Nausea/Vomiting Last Admin: 05/09/18 20:01 Dose: 4 mg Ranolazine (Ranexa) 500 mg PO BID [facility] Last Admin: 05/10/18 10:09 Dose: 500 mg Valproate Sodium (Depakene Cap) 250 mg PO QID [facility] Last Admin: 05/10/18 10:09 Dose: 250 mg - Labs Labs: 05/08/18 10:24 05/08/18 10:24 - Constitutional Appears: Non-toxic - Head Exam Head Exam: ATRAUMATIC - Eye Exam Eye Exam: Conjunctival injection - ENT Exam ENT Exam: Mucous Membranes Moist - Neck Exam Neck Exam: Full ROM - Respiratory Exam Respiratory Exam: Clear to Ausculation Bilateral - Cardiovascular Exam Cardiovascular Exam: REGULAR RHYTHM - GI/Abdominal Exam GI & Abdominal Exam: Normal Bowel Sounds - Rectal Exam Rectal Exam: Deferred - Exam Additional comments: ambiguas genetalia - Extremities Exam Additional comments: bilateral amputation - Back Exam Back Exam: NORMAL INSPECTION - Psychiatric Exam Psychiatric exam: Normal Affect - Skin Skin Exam: Pallor Assessment and Plan - Assessment and Plan (Free Text) Assessment: cad cardiac arrythmia chf esrf dmid Plan: table improved will d/c home today
--- NOTE | 2018-05-10 14:17 | CP.PCM.PN ---
Subjective - Date & Time of Evaluation Date of Evaluation: 05/10/18 Time of Evaluation: 14:17 Objective - Vital Signs/Intake and Output Vital Signs (last 24 hours): Temp Pulse Resp BP Pulse Ox 98.1 F 70 18 141/71 100 05/10/18 14:00 05/10/18 14:00 05/10/18 14:00 05/10/18 14:00 05/10/18 14:00 - Medications Medications: Current Medications Acetaminophen (Tylenol 325mg Tab) 650 mg PO Q6 PRN PRN Reason: Pain, Mild (1-3) Last Admin: 05/08/18 12:01 Dose: 650 mg Albuterol Sulfate (Albuterol 0.083% Inhal Pamela (2.5 Mg/3 Ml) Ud) 3 mg INH RTID [facility] Last Admin: 05/10/18 13:27 Dose: Not Given Amlodipine Besylate (Norvasc) 10 mg PO DAILY [facility] Last Admin: 05/10/18 10:18 Dose: Not Given Carvedilol (Coreg) 25 mg PO BID [facility] Last Admin: 05/10/18 10:17 Dose: Not Given Diltiazem HCl (Cardizem) 30 mg PO QID [facility] Last Admin: 05/10/18 13:13 Dose: 30 mg Epoetin Tom (Procrit) 4,000 unit IV TTS [facility] Hydromorphone HCl (Dilaudid) 1 mg IVP Q4H PRN PRN Reason: Pain, severe (8-10) Last Admin: 05/10/18 10:09 Dose: 1 mg Insulin Human Regular (Novolin R) 0 unit SC [facility] PRN Reason: Protocol Last Admin: 05/10/18 13:13 Dose: 2 units Isosorbide Mononitrate (Imdur) 60 mg PO DAILY [facility] Last Admin: 05/10/18 10:18 Dose: Not Given Levetiracetam (Keppra) 500 mg PO BID [facility] Last Admin: 05/10/18 10:09 Dose: 500 mg Losartan Potassium (Cozaar) 50 mg PO DAILY [facility] Last Admin: 05/10/18 10:17 Dose: Not Given Ondansetron HCl (Zofran Inj) 4 mg IVP Q6H PRN PRN Reason: Nausea/Vomiting Last Admin: 05/09/18 20:01 Dose: 4 mg Ranolazine (Ranexa) 500 mg PO BID [facility] Last Admin: 05/10/18 10:09 Dose: 500 mg Valproate Sodium (Depakene Cap) 250 mg PO QID [facility] Last Admin: 05/10/18 13:13 Dose: 250 mg - Labs Labs: 05/08/18 10:24 05/08/18 10:24 Assessment and Plan - Assessment and Plan (Free Text) Assessment: FOLLOW UP WITH DR BELL AT HER OFFICE ---CALL FOR APPOINTMENT FOLLOW UP WITH DR DONALDSON IN HIS OFFICE ---CALL FOR APPOINTMENT CONTINUE ALL HOME MEDICATION ACTIVITY TOLERATED HEMODIALYSIS SCHEDULE CALL DR BELL OR GO TO THE EMERGENCY ROOM IF SYMPTOMS RETURN OR WORSENING
--- NOTE | 2018-05-10 14:26 | CP.PCM.PN ---
Subjective - Date & Time of Evaluation Date of Evaluation: 05/10/18 Time of Evaluation: 14:25 - Subjective Subjective: Events reviewed, needs anticoagulation Objective - Vital Signs/Intake and Output Vital Signs (last 24 hours): Temp Pulse Resp BP Pulse Ox 98.1 F 70 18 114/68 100 05/10/18 14:00 05/10/18 14:00 05/10/18 14:15 05/10/18 14:15 05/10/18 14:15 - Medications Medications: Current Medications Acetaminophen (Tylenol 325mg Tab) 650 mg PO Q6 PRN PRN Reason: Pain, Mild (1-3) Last Admin: 05/08/18 12:01 Dose: 650 mg Albuterol Sulfate (Albuterol 0.083% Inhal Pamela (2.5 Mg/3 Ml) Ud) 3 mg INH RTID [facility] Last Admin: 05/10/18 13:27 Dose: Not Given Amlodipine Besylate (Norvasc) 10 mg PO DAILY [facility] Last Admin: 05/10/18 10:18 Dose: Not Given Carvedilol (Coreg) 25 mg PO BID [facility] Last Admin: 05/10/18 10:17 Dose: Not Given Diltiazem HCl (Cardizem) 30 mg PO QID [facility] Last Admin: 05/10/18 13:13 Dose: 30 mg Epoetin Tom (Procrit) 4,000 unit IV TTS [facility] Hydromorphone HCl (Dilaudid) 1 mg IVP Q4H PRN PRN Reason: Pain, severe (8-10) Last Admin: 05/10/18 10:09 Dose: 1 mg Insulin Human Regular (Novolin R) 0 unit SC ACHS [facility] PRN Reason: Protocol Last Admin: 05/10/18 13:13 Dose: 2 units Isosorbide Mononitrate (Imdur) 60 mg PO DAILY [facility] Last Admin: 05/10/18 10:18 Dose: Not Given Levetiracetam (Keppra) 500 mg PO BID [facility] Last Admin: 05/10/18 10:09 Dose: 500 mg Losartan Potassium (Cozaar) 50 mg PO DAILY [facility] Last Admin: 05/10/18 10:17 Dose: Not Given Ondansetron HCl (Zofran Inj) 4 mg IVP Q6H PRN PRN Reason: Nausea/Vomiting Last Admin: 05/09/18 20:01 Dose: 4 mg Ranolazine (Ranexa) 500 mg PO BID [facility] Last Admin: 05/10/18 10:09 Dose: 500 mg Valproate Sodium (Depakene Cap) 250 mg PO QID [facility] Last Admin: 05/10/18 13:13 Dose: 250 mg - Labs Labs: 05/08/18 10:24 05/08/18 10:24 Assessment and Plan - Assessment and Plan (Free Text) Assessment: CHEST PAIN - chronic recurrent: likely musculoskeleta - minimal troponin is c/w ESRD and possibly microvascular disease and demand ischemia - known severe CAD: and small residual [place] vessel CAD with failed bypass grafts: too small for any additional PCI - No longer on ASA, no longer on statin: resume if no CI - cont ranexa and imdur Acute on chronic mild-mod systolic and diastolic dysfunction - maintain fluid status with regular HD - cont coreg ESRD - cont HD HTN - labile - cont current meds and titrate as tolerated - coreg 25 BID, norvasc 10, losartan 50, - add hydralazine if needed DM - uncontrolled - probable gastroparesis - PPI and zofran Aflutter - paroxysmal - now NSR - HX fo clot around permacath: AFLUTTER ABLATION in future after complete anticoagulation course. - Patient is no longer on eliquis : resume if no CI - cont coreg and cardizem for now
--- NOTE | 2018-05-10 18:00 | CP.PCM.CON ---
History of Present Illness - History of Present Illness History of Present Illness: Nephrology Consultation Note: Assessment:critical Missed HD, hyperkaelamia, fluid overload SOB, chronic chest pain, A flutter Diabetic chronic Kidney Disease (E11.22) Hypertensive Chronic Kidney Disease (I12.0) End stage renal disease (N18.6) dependence on hemodialysis (Z99.2) (TTS) via AVF Anemia (D64.9), Hyperphosphatemia (E83.39), Secondary Hyperparathyroidism (E21.1 ), HTN (I12.0) CAD s/p CABG, diastolic CHF, parox A flutter/fib, intra-cardiac thrombus, hx of Heparin induced thrombocytopenia, hx of seizure, blindness Plan: plan for dialysis today Continue with Nephrovite 1 tab/day. BP high hence no HANNAH with HD for now Continue with phos binders home dose BP control with meds as ordered. Glycemic control, Dialysis consistent diet Further work up/management as per primary team Dose meds/antibiotics for ESRD status. Avoid fleets enema/magnesium based laxatives. cardiology input Thanks for allowing me to participate in care of your patient. Will follow patient with you. Please call if any Qs. Dr Eric Temple Office: [phone] CC: chest pain, SOB reason for consult: ESRD HPI: Pt is a 37 y/o transgender with hx of ESRD on hemodialysis (TTS) via permacath, chronic anemia, hyperphosphatemia, secondary hyperparathyroidism, Diabetes Mellitus, hypertension, CAD s/p CABG, diastolic CHF, pA flutter/fib, intra-cardiac thrombus, Heparin induced thrombocytopenia in past presented with complaints of SOB and chronic chest pain, missed HD ROS: All other negative except as in HPI. now better improved chronic chest pain , no GI symptoms. Physical Examination: General Appearance: in no acute respiratory distress, co-operative . Vitals reviewed and noted as below Head; Atraumatic, normocephalic ENT: no ulcers no thrush. Tongue is midline. Oropharynx: no rash or ulcers. EYES: Pt is blind both eyes Neck; supple no lymphadenopathy, no thyromegaly or bruit Lungs: Normal respiratory rate/effort. Breath sounds bilateral decreased at bases Heart: Normal rate. s1s2 normal. No rub or gallop. Extremities: no edema. No varicose veins. has b/l BKA. Neurological: Patient is awake follow commands no focal deficit Skin: Warm and dry. Normal turgor. No rash. Palpitation: Normal elasticity for age Abdomen: Abdomen is soft. Bowel sounds +. There is no abdominal tenderness, no guarding/rigidity or organomegaly Psych: limited insight and has normal affect/mood MSK: no joint tenderness or swelling. Digits and nails normal, no deformity : kidney or bladder not palpable Access: permacath Labs/imaging reviewed. Past medical history, past surgical history, family history, social history, allergy reviewed and noted as below Family Hx: no hx of CKD. Non contributory Past Patient History - Infectious Disease Hx of Infectious Diseases: None - Tetanus Immunizations Tetanus Immunization: >10 years Ago - Past Medical History & Family History Past Medical History?: Yes - Past Social History Smoking Status: Never Smoked - CARDIAC Hx Atrial Fibrillation: Yes Hx Cardia Arrhythmia: Yes Hx Congestive Heart Failure: Yes Hx Hypercholesterolemia: Yes Hx Hypertension: Yes - PULMONARY Hx Asthma: Yes Hx Bronchitis: Yes Hx Chronic Obstructive Pulmonary Disease (COPD): Yes Hx Pneumonia: Yes - NEUROLOGICAL Hx Alzheimer's Disease: Yes Hx Seizures: Yes - HEENT Hx HEENT Problems: Yes Hx Blind: Yes (legally blind) Hx Cataracts: Yes - RENAL Hx Chronic Kidney Disease: Yes Hx Kidney Stones: No - ENDOCRINE/METABOLIC Hx Hyperthyroidism: No Hx Hypothyroidism: Yes - HEMATOLOGICAL/ONCOLOGICAL Hx Anemia: Yes - INTEGUMENTARY Hx Dermatological Problems: No - MUSCULOSKELETAL/RHEUMATOLOGICAL Hx Arthritis: Yes - GASTROINTESTINAL Hx Gall Bladder Disease: Yes Hx Gastritis: Yes - GENITOURINARY/GYNECOLOGICAL Hx Sexually Transmitted Disorders: No - PSYCHIATRIC Hx Anxiety: Yes Hx Depression: Yes Hx Substance Use: No - SURGICAL HISTORY Hx Cholecystectomy: Yes (2011) 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/2009) Hx Coronary Stent: Yes - ANESTHESIA Hx Anesthesia: Yes Hx Anesthesia Reactions: No Hx Malignant Hyperthermia: No Meds Allergies/Adverse Reactions: Allergies Allergy/AdvReac Type Severity Reaction Status Date / Time acetaminophen [From Percocet] Allergy RASH Verified 05/07/18 11:00 atenolol Allergy RASH Verified 05/07/18 11:00 digoxin Allergy RASH Verified 05/07/18 11:00 milk Allergy ITCHING Verified 05/07/18 11:00 morphine Allergy RASH Verified 05/07/18 11:00 oxycodone HCl [From Percocet] Allergy RASH Verified 05/07/18 11:00 Results - Vital Signs Recent Vital Signs: Last Vital Signs Temp 98.3 F 05/07/18 10:49 Pulse 80 05/07/18 10:49 Resp 18 05/07/18 10:49 BP 189/97 H 05/07/18 10:49 Pulse Ox 100 05/07/18 15:09 - Labs Result Diagrams: 05/08/18 10:24 05/08/18 10:24 Labs: Laboratory Results - last 24 hr 05/07/18 05/07/18 13:38 13:38 WBC 12.7 H RBC 3.25 L Hgb 9.5 L Hct 28.9 L MCV 88.9 MCH 29.1 MCHC 32.8 L RDW 18.8 H Plt Count 287 MPV 9.5 Neut % (Auto) 73.8 Lymph % (Auto) 19.0 L [place] % (Auto) 4.6 Eos % (Auto) 1.8 Baso % (Auto) 0.8 Neut # (Auto) 9.4 H Lymph # (Auto) 2.4 [place] # (Auto) 0.6 Eos # (Auto) 0.2 Baso # (Auto) 0.1 Sodium 135 Potassium 6.5 H* D Chloride 95 L Carbon Dioxide 20 L Anion Gap 26 H BUN 97 H Creatinine 8.4 H* D Est GFR ( Amer) 9 Est GFR (Non-Af Amer) 7 Random Glucose 261 H Calcium 8.7 Total Bilirubin 0.6 AST 11 L D ALT 12 L Alkaline Phosphatase 168 H D Troponin I 0.0190 Total Protein 7.5 Albumin 4.0 Globulin 3.5 Albumin/Globulin Ratio 1.1
--- NOTE | 2018-05-10 18:01 | CP.PCM.PN ---
Subjective - Date & Time of Evaluation Date of Evaluation: 05/09/18 Time of Evaluation: 15:23 - Subjective Subjective: Nephrology Consultation Note: Assessment:critical Missed HD, hyperkaelamia, fluid overload SOB, chronic chest pain, A flutter Diabetic chronic Kidney Disease (E11.22) Hypertensive Chronic Kidney Disease (I12.0) End stage renal disease (N18.6) dependence on hemodialysis (Z99.2) (TTS) via AVF Anemia (D64.9), Hyperphosphatemia (E83.39), Secondary Hyperparathyroidism (E21.1 ), HTN (I12.0) CAD s/p CABG, diastolic CHF, parox A flutter/fib, intra-cardiac thrombus, hx of Heparin induced thrombocytopenia, hx of seizure, blindness Plan: plan for dialysis tomorrow Continue with Nephrovite 1 tab/day. HANNAH with HD for now Continue with phos binders home dose BP control with meds as ordered. Glycemic control, Dialysis consistent diet Further work up/management as per primary team Dose meds/antibiotics for ESRD status. Avoid fleets enema/magnesium based laxatives. cardiology input Thanks for allowing me to participate in care of your patient. Will follow patient with you. Please call if any Qs. Dr Eric Temple Office: [phone] CC: chest pain, SOB reason for consult: ESRD HPI: Pt is a 37 y/o transgender with hx of ESRD on hemodialysis (TTS) via permacath, chronic anemia, hyperphosphatemia, secondary hyperparathyroidism, Diabetes Mellitus, hypertension, CAD s/p CABG, diastolic CHF, pA flutter/fib, intra-cardiac thrombus, Heparin induced thrombocytopenia in past presented with complaints of SOB and chronic chest pain, missed HD ROS: All other negative except as in HPI. now better improved chronic chest pain , no GI symptoms. Physical Examination: General Appearance: in no acute respiratory distress, co-operative . Vitals reviewed and noted as below Head; Atraumatic, normocephalic ENT: no ulcers no thrush. Tongue is midline. Oropharynx: no rash or ulcers. EYES: Pt is blind both eyes Neck; supple no lymphadenopathy, no thyromegaly or bruit Lungs: Normal respiratory rate/effort. Breath sounds bilateral decreased at bases Heart: Normal rate. s1s2 normal. No rub or gallop. Extremities: no edema. No varicose veins. has b/l BKA. Neurological: Patient is awake follow commands no focal deficit Skin: Warm and dry. Normal turgor. No rash. Palpitation: Normal elasticity for age Abdomen: Abdomen is soft. Bowel sounds +. There is no abdominal tenderness, no guarding/rigidity or organomegaly Psych: limited insight and has normal affect/mood MSK: no joint tenderness or swelling. Digits and nails normal, no deformity : kidney or bladder not palpable Access: permacath Labs/imaging reviewed. Past medical history, past surgical history, family history, social history, allergy reviewed and noted as below Family Hx: no hx of CKD. Non contributory Objective - Vital Signs/Intake and Output Vital Signs (last 24 hours): Temp Pulse Resp BP Pulse Ox 97.5 F L 77 20 102/69 100 05/09/18 08:28 05/09/18 12:00 05/09/18 08:28 05/09/18 08:28 05/09/18 12:00 Intake and Output: 05/09/18 05/09/18 06:59 18:59 Intake Total 400 Output Total 500 Balance -100 - Medications Medications: Current Medications Acetaminophen (Tylenol 325mg Tab) 650 mg PO Q6 PRN PRN Reason: Pain, Mild (1-3) Last Admin: 05/08/18 12:01 Dose: 650 mg Albuterol Sulfate (Albuterol 0.083% Inhal Pamela (2.5 Mg/3 Ml) Ud) 3 mg INH RTID [facility] Last Admin: 05/09/18 13:43 Dose: Not Given Amlodipine Besylate (Norvasc) 10 mg PO DAILY [facility] Last Admin: 05/09/18 09:36 Dose: Not Given Carvedilol (Coreg) 25 mg PO BID [facility] Last Admin: 05/09/18 09:37 Dose: Not Given Diltiazem HCl (Cardizem) 30 mg PO QID [facility] Last Admin: 05/09/18 14:14 Dose: 30 mg Epoetin Tom (Procrit) 4,000 unit IV TTS [facility] Heparin Sodium (Porcine) (Heparin) 3,700 units IVP TTS [facility] Stop: 05/10/18 10:01 Last Admin: 05/08/18 12:04 Dose: 3,700 units Hydromorphone HCl (Dilaudid) 1 mg IVP Q4H PRN PRN Reason: Pain, severe (8-10) Last Admin: 05/09/18 14:14 Dose: 1 mg Insulin Human Regular (Novolin R) 0 unit SC ACHS [facility] PRN Reason: Protocol Last Admin: 05/09/18 12:45 Dose: Not Given Isosorbide Mononitrate (Imdur) 60 mg PO DAILY [facility] Last Admin: 05/09/18 11:26 Dose: Not Given Levetiracetam (Keppra) 500 mg PO BID [facility] Last Admin: 05/09/18 09:36 Dose: Not Given Losartan Potassium (Cozaar) 50 mg PO DAILY [facility] Last Admin: 05/09/18 11:26 Dose: Not Given Ondansetron HCl (Zofran Inj) 4 mg IVP Q6H PRN PRN Reason: Nausea/Vomiting Last Admin: 05/09/18 14:14 Dose: 4 mg Ranolazine (Ranexa) 500 mg PO BID [facility] Last Admin: 05/09/18 11:26 Dose: Not Given Valproate Sodium (Depakene Cap) 250 mg PO QID [facility] Last Admin: 05/09/18 14:14 Dose: 250 mg - Labs Labs: 05/08/18 10:24 05/08/18 10:24
--- NOTE | 2018-05-10 18:02 | CP.PCM.PN ---
Subjective - Date & Time of Evaluation Date of Evaluation: 05/10/18 Time of Evaluation: 18:01 - Subjective Subjective: Nephrology Consultation Note: Assessment:critical Missed HD, hyperkaelamia, fluid overload SOB, chronic chest pain, A flutter Diabetic chronic Kidney Disease (E11.22) Hypertensive Chronic Kidney Disease (I12.0) End stage renal disease (N18.6) dependence on hemodialysis (Z99.2) (TTS) via AVF Anemia (D64.9), Hyperphosphatemia (E83.39), Secondary Hyperparathyroidism (E21.1 ), HTN (I12.0) CAD s/p CABG, diastolic CHF, parox A flutter/fib, intra-cardiac thrombus, hx of Heparin induced thrombocytopenia, hx of seizure, blindness Plan: plan for dialysis today Continue with Nephrovite 1 tab/day. HANNAH with HD for now Continue with phos binders home dose BP control with meds as ordered. Glycemic control, Dialysis consistent diet Further work up/management as per primary team Dose meds/antibiotics for ESRD status. Avoid fleets enema/magnesium based laxatives. cardiology input Thanks for allowing me to participate in care of your patient. Will follow patient with you. Please call if any Qs. Dr Eric Temple Office: [phone] CC: chest pain, SOB reason for consult: ESRD HPI: Pt is a 37 y/o transgender with hx of ESRD on hemodialysis (TTS) via permacath, chronic anemia, hyperphosphatemia, secondary hyperparathyroidism, Diabetes Mellitus, hypertension, CAD s/p CABG, diastolic CHF, pA flutter/fib, intra-cardiac thrombus, Heparin induced thrombocytopenia in past presented with complaints of SOB and chronic chest pain, missed HD ROS: All other negative except as in HPI. now better improved chronic chest pain , no GI symptoms. Physical Examination: seen on HD General Appearance: in no acute respiratory distress, co-operative . Vitals reviewed and noted as below Head; Atraumatic, normocephalic ENT: no ulcers no thrush. Tongue is midline. Oropharynx: no rash or ulcers. EYES: Pt is blind both eyes Neck; supple no lymphadenopathy, no thyromegaly or bruit Lungs: Normal respiratory rate/effort. Breath sounds bilateral decreased at bases Heart: Normal rate. s1s2 normal. No rub or gallop. Extremities: no edema. No varicose veins. has b/l BKA. Neurological: Patient is awake follow commands no focal deficit Skin: Warm and dry. Normal turgor. No rash. Palpitation: Normal elasticity for age Abdomen: Abdomen is soft. Bowel sounds +. There is no abdominal tenderness, no guarding/rigidity or organomegaly Psych: limited insight and has normal affect/mood MSK: no joint tenderness or swelling. Digits and nails normal, no deformity : kidney or bladder not palpable Access: permacath Labs/imaging reviewed. Past medical history, past surgical history, family history, social history, allergy reviewed and noted as below Family Hx: no hx of CKD. Non contributory Objective - Vital Signs/Intake and Output Vital Signs (last 24 hours): Temp Pulse Resp BP Pulse Ox 98 F 67 16 95/48 L 99 05/10/18 17:30 05/10/18 17:30 05/10/18 17:30 05/10/18 17:30 05/10/18 17:30 Intake and Output: 05/10/18 05/10/18 06:59 18:59 Output Total 2 Balance -2 - Medications Medications: Current Medications Acetaminophen (Tylenol 325mg Tab) 650 mg PO Q6 PRN PRN Reason: Pain, Mild (1-3) Last Admin: 05/08/18 12:01 Dose: 650 mg Albuterol Sulfate (Albuterol 0.083% Inhal Pamela (2.5 Mg/3 Ml) Ud) 3 mg INH RTID [facility] Last Admin: 05/10/18 13:27 Dose: Not Given Amlodipine Besylate (Norvasc) 10 mg PO DAILY [facility] Last Admin: 05/10/18 10:18 Dose: Not Given Carvedilol (Coreg) 25 mg PO BID [facility] Last Admin: 05/10/18 10:17 Dose: Not Given Diltiazem HCl (Cardizem) 30 mg PO QID [facility] Last Admin: 05/10/18 13:13 Dose: 30 mg Epoetin Tom (Procrit) 4,000 unit IV TTS [facility] Last Admin: 05/10/18 15:33 Dose: 4,000 unit Hydromorphone HCl (Dilaudid) 1 mg IVP Q4H PRN PRN Reason: Pain, severe (8-10) Last Admin: 05/10/18 16:02 Dose: 1 mg Insulin Human Regular (Novolin R) 0 unit SC ACHS [facility] PRN Reason: Protocol Last Admin: 05/10/18 17:44 Dose: Not Given Isosorbide Mononitrate (Imdur) 60 mg PO DAILY [facility] Last Admin: 05/10/18 10:18 Dose: Not Given Levetiracetam (Keppra) 500 mg PO BID [facility] Last Admin: 05/10/18 10:09 Dose: 500 mg Losartan Potassium (Cozaar) 50 mg PO DAILY [facility] Last Admin: 05/10/18 10:17 Dose: Not Given Ondansetron HCl (Zofran Inj) 4 mg IVP Q6H PRN PRN Reason: Nausea/Vomiting Last Admin: 05/09/18 20:01 Dose: 4 mg Ranolazine (Ranexa) 500 mg PO BID [facility] Last Admin: 05/10/18 10:09 Dose: 500 mg Valproate Sodium (Depakene Cap) 250 mg PO QID [facility] Last Admin: 05/10/18 13:13 Dose: 250 mg - Labs Labs: 05/08/18 10:24 05/08/18 10:24
[2018-05-10 18:06] VITALS: BP 113/72; PULSE 72; RESP 20; TEMP 97.7; O2SAT 100
== END 2018-05-10 19:36 | disposition home or self-care (01) | DRG 544 ==
LOC: C.ER 10:25 → C.9E 15:10 → C.5S 19:11 → OBSVTOIN 05-09 17:36
PROVIDERS: ADMIT Internal Medicine; ATTEND Internal Medicine
PROC: 5A1D70Z Performance of Urinary Filtration, Intermittent, Less than 6 Hours Per Day (ICD-10-PCS; principal; 2018-05-09)
PROC: 5A1D70Z Performance of Urinary Filtration, Intermittent, Less than 6 Hours Per Day (ICD-10-PCS; 2018-05-10)
DX: I13.2 Hypertensive heart and chronic kidney disease with heart failure and with stage 5 chronic kidney disease, or end stage renal disease (principal); I50.43 Acute on chronic combined systolic (congestive) and diastolic (congestive) heart failure; I48.92 Unspecified atrial flutter; N18.6 End stage renal disease; E11.65 Type 2 diabetes mellitus with hyperglycemia; E11.43 Type 2 diabetes mellitus with diabetic autonomic (poly)neuropathy; E11.22 Type 2 diabetes mellitus with diabetic chronic kidney disease; E87.5 Hyperkalemia; I25.10 Atherosclerotic heart disease of native coronary artery without angina pectoris; I48.91 Unspecified atrial fibrillation; H54.8 Legal blindness, as defined in USA; G89.29 Other chronic pain; G30.9 Alzheimer's disease, unspecified; F64.9 Gender identity disorder, unspecified; K31.84 Gastroparesis; N25.81 Secondary hyperparathyroidism of renal origin; Q98.4 Klinefelter syndrome, unspecified; Z79.4 Long term (current) use of insulin; Z86.73 Personal history of transient ischemic attack (TIA), and cerebral infarction without residual deficits; Z89.511 Acquired absence of right leg below knee; Z89.512 Acquired absence of left leg below knee; Z95.1 Presence of aortocoronary bypass graft; Z99.2 Dependence on renal dialysis; D64.9 Anemia, unspecified

== ENCOUNTER 2018-05-16 23:01 | Emergency (ER) | payer OTHER ==
[2018-05-16 23:02] VITALS: PULSE 110; BMI 18.8
[2018-05-16] MEDS ORDERED: Aspirin 325 mg EC Tablets PO STA (23:23)
--- NOTE | 2018-05-16 23:23 | C.PDOC ---
History Of Present Illness Patient presents to the ER with a complaint of palpitations. Patient has a Hx of ESRD on Saturday, , Saturday hemodialysis, and Hx of diabetes. Denies fever, chills, nausea, or vomiting. Time Seen by Provider: 05/16/18 23:21 Chief Complaint (Nursing): Palpitations History Per: Patient History/Exam Limitations: no limitations Onset/Duration Of Symptoms: Hrs Current Symptoms Are (Timing): Still Present Severity: Moderate Pain Scale Rating Of: 4 Recent travel outside of the [place]: No Past Medical History Reviewed: Historical Data, Nursing Documentation, Vital Signs Vital Signs: Last Vital Signs Temp 98.7 F 05/16/18 23:09 Pulse 85 05/16/18 23:09 Resp 18 05/16/18 23:09 BP 228/70 H 05/16/18 23:09 Pulse Ox 100 05/17/18 00:10 - Medical History PMH: Alzheimer's Disease, Anemia, Anxiety, Arthritis, Asthma, Atrial Fibrillation, Bronchitis, CAD, Cardia Arrhythmia, CHF, COPD, CVA, Depression, Diabetes, Deep Vein Thrombosis, Gastritis, Gastrointestinal Ulcer, Gall Bladder Disease, HTN, Hypercholesterolemia, Hypothyroidism, Pneumonia, End Stage Renal Disease, Chronic Kidney Disease, Seizures Denies: Hyperthyroidism, Kidney Stones, Sexually Transmitted Disease Surgical History: CABG (12/2009), Cholecystectomy (2011), Coronary Stent - [facility] (05/09/18) ABDOMINAL WALL SINOGRAM (12/31/13) C.A.T. SCAN OF ABDOMEN (10/31/13) CENTRAL VENOUS CATHETER PLACEMENT WITH GUIDANCE (02/10/15) CHANGE OTHER DEVICE IN TRUNK SUBCU/FASCIA, CORNER CUTTER APPROACH (06/01/17) DILATE R ANT TIB ART W DRUG-ELUT INTRALUM, PERC (08/12/15) DILATION OF LEFT FEMORAL ARTERY, PERCUTANEOUS APPROACH (07/04/16) DILATION OF RIGHT FEMORAL ARTERY, PERCUTANEOUS APPROACH (08/12/15) DILATION OF RIGHT POPLITEAL ARTERY, PERCUTANEOUS APPROACH (08/12/15) DX ULTRASOUND-HEART (01/05/13) ENTERAL INFUSION OF CONCENTRATED NUT. SUBSTANCES (06/28/13) EXCIS DEBRIDE OF WOUND, INFECT, OR BURN (08/03/14) EXCISION OF STOMACH, ENDO, DIAGN (03/03/17) EXTIRPATION OF MATTER FROM L FEM ART, PERC APPROACH (07/04/16) EXTIRPATION OF MATTER FROM R FEM ART, PERC APPROACH (08/12/15) EXTIRPATION OF MATTER FROM R POPL ART, PERC APPROACH (08/12/15) FLUOROSCOPY OF L LOW EXTREM ART USING L OSM CONTRAST (08/12/15) FLUOROSCOPY OF R LOW EXTREM ART USING L OSM CONTRAST (08/12/15) FLUOROSCOPY OF RIGHT JUGULAR VEINS, GUIDANCE (06/01/17) FREE SKIN GRAFT NEC (08/03/14) HEAD SOFT TISS X-RAY NEC (04/15/13) HEMODIALYSIS (04/28/15) INCIS W REM OF FORIEGN BODY OR DEV FROM SKIN & SUBCUT TISSUE (08/08/13) INSERT INFUSION DEV IN R INT JUGULAR VEIN, PERC (06/01/17) INSERTION OF INFUSION DEV INTO R SUBCLAV VEIN, PERC APPROACH (01/19/16) INSERTION OF INFUSION DEV INTO SUP VENA CAVA, PERC APPROACH (01/07/18) INSPECTION OF UPPER INTESTINAL TRACT, ENDO (03/03/17) INTRODUCE OF OTH THROMBOLYTIC INTO PERIPH ART, PERC APPROACH (08/12/15) LAPAROSCOPIC CHOLECYSTECTOMY (09/21/13) LOC EXC LES METATAR/TAR (06/01/14) PACKED CELL TRANSFUSION (06/01/14) PERCUTAN LIVER ASPIRAT (12/31/13) PERFORMANCE OF URINARY FILTRATION, MULTIPLE (05/17/17) PERFORMANCE OF URINARY FILTRATION, SINGLE (12/18/16) SKIN & SUBQ INCISION NEC (10/24/14) TETANUS TOXOID ADMINIST (06/13/14) TRANSFUSE NONAUT RED BLOOD CELLS IN PERIPH VEIN, PERC (04/09/17) ULTRASONOGRAPHY OF RIGHT AND LEFT HEART (04/09/17) ULTRASONOGRAPHY OF SUPERIOR VENA CAVA, GUIDANCE (01/07/18) VENOUS CATHETERIZATION FOR RENAL DIALYSIS (08/08/13) VENOUS CATHETERIZATION NEC (04/30/13) Family History: States: No Known Family Hx - Social History Hx Tobacco Use: No Hx Alcohol Use: No Hx Substance Use: No - Immunization History Hx Tetanus Toxoid Vaccination: Yes Hx Influenza Vaccination: Yes Hx Pneumococcal Vaccination: Yes Review Of Systems Constitutional: Negative for: Fever, Chills Cardiovascular: Positive for: Palpitations. Negative for: Chest Pain Respiratory: Negative for: Shortness of Breath Gastrointestinal: Negative for: Nausea, Vomiting Skin: Negative for: Rash Physical Exam - Physical Exam Appears: Non-toxic Skin: Warm, Dry Head: Normacephalic Oral Mucosa: Moist Neck: Trachea Midline, Supple Chest: No Tenderness, Other (Right sided dialysis port) Cardiovascular: Rhythm Regular Respiratory: No Rales, No Rhonchi, No Wheezing Gastrointestinal/Abdominal: Soft, No Tenderness Extremity: Other (Bilateral BKA) Neurological/Psych: Oriented x3 ED Course And Treatment - Laboratory Results Result Diagrams: 05/16/18 00:59 05/16/18 00:59 ECG: Interpreted By Me, Viewed By Me ECG Rhythm: Sinus Rhythm (81), Nonspecific Changes (lvh, unchanged from previous ) O2 Sat by Pulse Oximetry: 100 (Room air) Pulse Ox Interpretation: Normal - Radiology CXR: Interpreted by Me, Viewed By Me CXR Interpretation: Yes: Cardiomegaly, Other (hd catheter r chest wall, cabg , mild vasc congestion, unchanged from 05/07/18). No: Infiltrates, Fracture Progress Note: EKG, blood work, and CXR ordered. Aspirin administered. 1:49 pt feels fine and wants to go home as not to miss his HD. Denies any cp or palpitations. Disposition Counseled Patient/Family Regarding: Studies Performed, Diagnosis, Need For Followup - Disposition Referrals: Sybil Li MD [Staff Provider] - Disposition: HOME/ ROUTINE Disposition Time: 23:21 Condition: FAIR Additional Instructions: please return if symptoms recur Instructions: Palpitations (DC), End Stage Kidney Disease (DC) Forms: [facility] ([place]) - Clinical Impression Clinical Impression: Palpitations, ESRD on hemodialysis - Scribe Statement The provider has reviewed the documentation as recorded by the Scribrigoberto Leavitt All medical record entries made by the Scribe were at my direction and personally dictated by me. I have reviewed the chart and agree that the record accurately reflects my personal performance of the history, physical exam, medical decision making, and the department course for this patient. I have also personally directed, reviewed, and agree with the discharge instructions and disposition.
[2018-05-17 00:13] LABS: INR 1.3; PROTHROMBIN TIME 13.9 SECONDS (9.7-12.2)
[2018-05-17 00:17] LABS: BASO # 0.1 K/uL (0.0-0.2); BASO % 0.5 % (0.0-2.0); EOS # 0.3 K/uL (0.0-0.7); EOS % 2.6 % (0.0-4.0); HEMOGLOBIN 9.9 g/dL (12.0-18.0); LYMPH # 2.5 K/uL (1.0-4.3); LYMPH % 22.8 % (20.0-40.0); MEAN CELL VOLUME 90.3 fL (80.0-94.0); MEAN CORPUSCULAR HEMOGLOBIN 29.7 pg (27.0-31.0); MEAN CORPUSCULAR HGB CONC 32.8 g/dL (33.0-37.0); MONO # 0.8 K/uL (0.0-0.8); MONO % 7.3 % (0.0-10.0); NEUT # 7.4 K/uL (1.8-7.0); NEUT % 66.8 % (50.0-75.0); RBC 3.34 Mil/uL (4.40-5.90); WHITE BLOOD COUNT 11.1 K/uL (4.8-10.8)
[2018-05-17 00:34] LABS: ALB/GLOB RATIO 1.3 (1.0-2.1); ALBUMIN 4.1 g/dL (3.5-5.0); CALCIUM 9.3 mg/dl (8.6-10.4); TROPONIN I 0.33 ng/mL (0.00-0.120)
[2018-05-17 08:06] VITALS: BP 182/89; PULSE 86; RESP 16; TEMP 98; O2SAT 96
--- NOTE | 2018-05-17 09:07 | RAD ---
Date of service: 05/16/2018 PROCEDURE: CHEST RADIOGRAPH, 1 VIEW HISTORY: chest pain COMPARISON: Chest radiograph dated 05/07/2018. FINDINGS: LUNGS: Pulmonary vascular congestion. PLEURA: No pneumothorax or pleural fluid seen. CARDIOVASCULAR: Prior sternotomy with sternal wires and surgical clips redemonstrated. A mediastinal silhouette unchanged. OSSEOUS STRUCTURES: Unchanged. VISUALIZED UPPER ABDOMEN: Right upper quadrant surgical clips redemonstrated. OTHER FINDINGS: Right internal jugular access tunneled hemodialysis catheter, unchanged. IMPRESSION: Pulmonary vascular congestion. No significant interval change.
== END 2018-05-17 08:06 | disposition home or self-care (01) ==
LOC: C.ER 23:01
DX: R00.2 Palpitations (principal); N18.6 End stage renal disease; Z99.2 Dependence on renal dialysis

== ENCOUNTER 2018-05-31 10:26 | Inpatient (IN) | payer OTHER ==
[2018-05-31 10:26] VITALS: PULSE 110; BMI 18.8
--- NOTE | 2018-05-31 10:55 | C.PDOC ---
History Of Present Illness 37 yo male w/PMHx of ESRD on HD (T,T,Sat), B/L BKA, chronic chest pain, Aflutter, CAD s/p CABG, diastolic CHF, hx of seizure, blindness BIBA for evaluation os SOB, left sided chest pain gradually developed since early AM. PMHx: Missed HD, hyperkaelamia, fluid overload SOB, chronic chest pain, A flutter Diabetic chronic Kidney Disease (E11.22) Hypertensive Chronic Kidney Disease (I12.0) End stage renal disease (N18.6) dependence on hemodialysis (Z99.2) (TTS) via AVF Anemia (D64.9), Hyperphosphatemia (E83.39), Secondary Hyperparathyroidism (E21.1), HTN (I12.0) CAD s/p CABG, diastolic CHF, parox A flutter/fib, intra-cardiac thrombus, hx of Heparin induced thrombocytopenia, hx of seizure, blindness <Kati Faith - Last Filed: 05/31/18 13:11> History Per: Patient, EMS <Kati Faith - Last Filed: 05/31/18 13:11> <Fredi Velázquez - Last Filed: 05/31/18 18:35> Time Seen by Provider: 05/31/18 10:44 Past Medical History Reviewed: Historical Data, Nursing Documentation, Vital Signs - Medical History PMH: Alzheimer's Disease, Anemia, Anxiety, Arthritis, Asthma, Atrial Fibrillation, Bronchitis, CAD, Cardia Arrhythmia, CHF, COPD, CVA, Depression, Diabetes, Deep Vein Thrombosis, Gastritis, Gastrointestinal Ulcer, Gall Bladder Disease, HTN, Hypercholesterolemia, Hypothyroidism, Pneumonia, End Stage Renal Disease, Chronic Kidney Disease, Seizures Denies: Hyperthyroidism, Kidney Stones, Sexually Transmitted Disease Surgical History: CABG (12/2009), Cholecystectomy (2011), Coronary Stent - [facility] (05/09/18) ABDOMINAL WALL SINOGRAM (12/31/13) C.A.T. SCAN OF ABDOMEN (10/31/13) CENTRAL VENOUS CATHETER PLACEMENT WITH GUIDANCE (02/10/15) CHANGE OTHER DEVICE IN TRUNK SUBCU/FASCIA, COSMETIC SURGEON APPROACH (06/01/17) DILATE R ANT TIB ART W DRUG-ELUT INTRALUM, PERC (08/12/15) DILATION OF LEFT FEMORAL ARTERY, PERCUTANEOUS APPROACH (07/04/16) DILATION OF RIGHT FEMORAL ARTERY, PERCUTANEOUS APPROACH (08/12/15) DILATION OF RIGHT POPLITEAL ARTERY, PERCUTANEOUS APPROACH (08/12/15) DX ULTRASOUND-HEART (01/05/13) ENTERAL INFUSION OF CONCENTRATED NUT. SUBSTANCES (06/28/13) EXCIS DEBRIDE OF WOUND, INFECT, OR BURN (08/03/14) EXCISION OF STOMACH, ENDO, DIAGN (03/03/17) EXTIRPATION OF MATTER FROM L FEM ART, PERC APPROACH (07/04/16) EXTIRPATION OF MATTER FROM R FEM ART, PERC APPROACH (08/12/15) EXTIRPATION OF MATTER FROM R POPL ART, PERC APPROACH (08/12/15) FLUOROSCOPY OF L LOW EXTREM ART USING L OSM CONTRAST (08/12/15) FLUOROSCOPY OF R LOW EXTREM ART USING L OSM CONTRAST (08/12/15) FLUOROSCOPY OF RIGHT JUGULAR VEINS, GUIDANCE (06/01/17) FREE SKIN GRAFT NEC (08/03/14) HEAD SOFT TISS X-RAY NEC (04/15/13) HEMODIALYSIS (04/28/15) INCIS W REM OF FORIEGN BODY OR DEV FROM SKIN & SUBCUT TISSUE (08/08/13) INSERT INFUSION DEV IN R INT JUGULAR VEIN, PERC (06/01/17) INSERTION OF INFUSION DEV INTO R SUBCLAV VEIN, PERC APPROACH (01/19/16) INSERTION OF INFUSION DEV INTO SUP VENA CAVA, PERC APPROACH (01/07/18) INSPECTION OF UPPER INTESTINAL TRACT, ENDO (03/03/17) INTRODUCE OF OTH THROMBOLYTIC INTO PERIPH ART, PERC APPROACH (08/12/15) LAPAROSCOPIC CHOLECYSTECTOMY (09/21/13) LOC EXC LES METATAR/TAR (06/01/14) PACKED CELL TRANSFUSION (06/01/14) PERCUTAN LIVER ASPIRAT (12/31/13) PERFORMANCE OF URINARY FILTRATION, MULTIPLE (05/17/17) PERFORMANCE OF URINARY FILTRATION, SINGLE (12/18/16) SKIN & SUBQ INCISION NEC (10/24/14) TETANUS TOXOID ADMINIST (06/13/14) TRANSFUSE NONAUT RED BLOOD CELLS IN PERIPH VEIN, PERC (04/09/17) ULTRASONOGRAPHY OF RIGHT AND LEFT HEART (04/09/17) ULTRASONOGRAPHY OF SUPERIOR VENA CAVA, GUIDANCE (01/07/18) VENOUS CATHETERIZATION FOR RENAL DIALYSIS (12/07/13) VENOUS CATHETERIZATION NEC (04/30/13) Family History: States: Unknown Family Hx - Social History Hx Tobacco Use: No Hx Alcohol Use: No Hx Substance Use: No - Immunization History Hx Tetanus Toxoid Vaccination: Yes Hx Influenza Vaccination: Yes Hx Pneumococcal Vaccination: Yes <Kati Faith - Last Filed: 05/31/18 13:11> Vital Signs: Last Vital Signs Temp 98.4 F 05/31/18 14:30 Pulse 100 H 05/31/18 14:30 Resp 15 05/31/18 14:30 BP 192/87 H 05/31/18 14:45 Pulse Ox 100 05/31/18 14:30 - [facility] (05/09/18) ABDOMINAL WALL SINOGRAM (12/31/13) C.A.T. SCAN OF ABDOMEN (10/31/13) CENTRAL VENOUS CATHETER PLACEMENT WITH GUIDANCE (02/10/15) CHANGE OTHER DEVICE IN TRUNK SUBCU/FASCIA, COSMETIC SURGEON APPROACH (06/01/17) DILATE R ANT TIB ART W DRUG-ELUT INTRALUM, PERC (08/12/15) DILATION OF LEFT FEMORAL ARTERY, PERCUTANEOUS APPROACH (07/04/16) DILATION OF RIGHT FEMORAL ARTERY, PERCUTANEOUS APPROACH (08/12/15) DILATION OF RIGHT POPLITEAL ARTERY, PERCUTANEOUS APPROACH (08/12/15) DX ULTRASOUND-HEART (01/05/13) ENTERAL INFUSION OF CONCENTRATED NUT. SUBSTANCES (06/28/13) EXCIS DEBRIDE OF WOUND, INFECT, OR BURN (08/03/14) EXCISION OF STOMACH, ENDO, DIAGN (03/03/17) EXTIRPATION OF MATTER FROM L FEM ART, PERC APPROACH (07/04/16) EXTIRPATION OF MATTER FROM R FEM ART, PERC APPROACH (08/12/15) EXTIRPATION OF MATTER FROM R POPL ART, PERC APPROACH (08/12/15) FLUOROSCOPY OF L LOW EXTREM ART USING L OSM CONTRAST (08/12/15) FLUOROSCOPY OF R LOW EXTREM ART USING L OSM CONTRAST (08/12/15) FLUOROSCOPY OF RIGHT JUGULAR VEINS, GUIDANCE (06/01/17) FREE SKIN GRAFT NEC (08/03/14) HEAD SOFT TISS X-RAY NEC (04/15/13) HEMODIALYSIS (04/28/15) INCIS W REM OF FORIEGN BODY OR DEV FROM SKIN & SUBCUT TISSUE (08/08/13) INSERT INFUSION DEV IN R INT JUGULAR VEIN, PERC (06/01/17) INSERTION OF INFUSION DEV INTO R SUBCLAV VEIN, PERC APPROACH (01/19/16) INSERTION OF INFUSION DEV INTO SUP VENA CAVA, PERC APPROACH (01/07/18) INSPECTION OF UPPER INTESTINAL TRACT, ENDO (03/03/17) INTRODUCE OF OTH THROMBOLYTIC INTO PERIPH ART, PERC APPROACH (08/12/15) LAPAROSCOPIC CHOLECYSTECTOMY (09/21/13) LOC EXC LES METATAR/TAR (06/01/14) PACKED CELL TRANSFUSION (06/01/14) PERCUTAN LIVER ASPIRAT (12/31/13) PERFORMANCE OF URINARY FILTRATION, MULTIPLE (05/17/17) PERFORMANCE OF URINARY FILTRATION, SINGLE (12/18/16) SKIN & SUBQ INCISION NEC (10/24/14) TETANUS TOXOID ADMINIST (06/13/14) TRANSFUSE NONAUT RED BLOOD CELLS IN PERIPH VEIN, PERC (04/09/17) ULTRASONOGRAPHY OF RIGHT AND LEFT HEART (04/09/17) ULTRASONOGRAPHY OF SUPERIOR VENA CAVA, GUIDANCE (01/07/18) VENOUS CATHETERIZATION FOR RENAL DIALYSIS (08/08/13) VENOUS CATHETERIZATION NEC (04/30/13) <Fredi Velázquez - Last Filed: 05/31/18 18:35> Review Of Systems Except As Marked, All Systems Reviewed And Found Negative. ENT: Negative for: Ear Discharge, Nose Discharge Cardiovascular: Positive for: Chest Pain Respiratory: Positive for: Shortness of Breath Gastrointestinal: Negative for: Abdominal Pain <Kati Faith - Last Filed: 05/31/18 13:11> Physical Exam - Physical Exam Appears: In Acute Distress Skin: Normal Color, Warm, No Rash Head: Normacephalic Nose: Flaring Oral Mucosa: Moist, No Drooling Neck: Supple Chest: Other Cardiovascular: Rhythm Regular (tachy), No Murmur Respiratory: No Decreased Breath Sounds, Accessory Muscle Use, Rhonchi, No Stridor Gastrointestinal/Abdominal: Soft, No Tenderness, No Distention Extremity: Other (B/L BKA) <Kati Faith - Last Filed: 05/31/18 13:11> ED Course And Treatment - Laboratory Results Result Diagrams: 05/31/18 11:34 05/31/18 11:34 Lab Interpretation: Abnormal O2 Sat by Pulse Oximetry: 94 Pulse Ox Interpretation: Abnormal <AnnettebishopluciaKati - Last Filed: 05/31/18 13:11> - Laboratory Results Result Diagrams: 05/31/18 11:34 05/31/18 11:34 <Fredi Velázquez - Last Filed: 05/31/18 18:35> Critical Care Time - Critical Care Note Total Time (in mins): 50 Documented critical care: time excludes all time spent performing seperately billable procedures. <VianneyKati - Last Filed: 05/31/18 13:11> Medical Decision Making Medical Decision Makin yr old male w/ hx of CAD w/ CHF, ESRD on HD T TH SAT, b/l BKA p/w SOB, CP. Pt notes SOB started this morning, he notes that he missed dialysis this morning. He notes palpitations as well as chronic leg pain. Rales b/l on my exam. 1126: SOB w/ elevated pressures. B/L rales on exam. Flash pulm edema vs Fluid overloaded from missing HD. N.O. SL given Paged Respiratory EKG w/ 124, tachy, runs of V tach. No STEMI. ?Hyperkalemia, Will rx with HyperK cocktail Appreciate consult w/ Dr. Payton- to see pt. Appreciate consult w/ Pts biomedical equipment technician per PA: will order labs, we are to call dialysis RNs RNs paged toxicology teacher Difficult access- x3 nurses tried previously. Pt is to be on BIPAP. Given possible HyperK and w/ EKG changes: emergent usage of dialysis cathether required. 1140 Dialysis cathether cleared w/ heparin, blood drawn. Pt sat in the 90s, refuses bipap: convinced pt to restart bipap. N.O. SL given Paged Respiratoy again Per dialysis RNs: cannot undergoe urgent HD in ED given they are dialyzing pts. Appreciate consult w/ Dr. Payton: to see pt 1220 Respiratory bedside, placed pt on bipap, drawing ABG. ~1230 Pt w/ improved sats on Bipap K+ resulted: 3.7 Appreciate consult w/ Dr. Payton: 150 amio, hold off on N.O.- accepts pt Appreciate consult w/ Dr. Li: accepts pt to his service: we are to place order for Cardiology Gadhvi consult EKG W/ out runs of vtach. No runs of vtach on monitor noted. trop mildly elevated WBC elevated at 17k <Fredi Velázquez - Last Filed: 05/31/18 18:35> Disposition - Disposition Disposition Time: 12:00 <Kati Faith - Last Filed: 05/31/18 13:11> <Fredi Velázquez - Last Filed: 05/31/18 18:35> - Disposition Disposition: HOSPITALIZED Condition: CRITICAL - Clinical Impression Clinical Impression: CHF exacerbation, SOB (shortness of breath), ESRD on hemodialysis
[2018-05-31] MEDS ORDERED: Magnesium Sulfate 1 gm in D5W 1 GM/100 ML BAG IVPB ONE (11:32)
[2018-05-31] MEDS ORDERED: Calcium Gluconate 4.65 mEq/10 ml Inj ONE ×2 (11:37→12:18)
[2018-05-31] MEDS ORDERED: Calcium Gluconate 4.65 mEq/10 ml Inj IVP ONE (11:38)
[2018-05-31] MEDS ORDERED: Albuterol 0.083% Inhal Sol (2.5 mg/3 mL) UD INH STA ×2 (11:40→11:50)
[2018-05-31 11:42] LABS: BASO # 0.1 K/uL (0.0-0.2); BASO % 0.5 % (0.0-2.0); EOS % 0.2 % (0.0-4.0); HEMOGLOBIN 9.9 g/dL (12.0-18.0); LYMPH % 5.7 % (20.0-40.0); MEAN CORPUSCULAR HEMOGLOBIN 29.6 pg (27.0-31.0); MEAN CORPUSCULAR HGB CONC 31.3 g/dL (33.0-37.0); MEAN PLATELET VOLUME 9.5 fL (7.2-11.7); MONO # 0.8 K/uL (0.0-0.8); MONO % 4.9 % (0.0-10.0); NEUT # 15.1 K/uL (1.8-7.0); NEUT % 88.7 % (50.0-75.0); PLATELET COUNT 273 K/uL (130-400); RBC 3.36 Mil/uL (4.40-5.90); RED CELL DISTRIBUTION WIDTH 20.1 % (11.5-14.5)
[2018-05-31] MEDS ORDERED: Albuterol 0.083% Inhal Sol (2.5 mg/3 mL) UD ONE ×3 (11:42→12:09)
[2018-05-31 11:44] LABS: MEAN CELL VOLUME 94.5 fL (80.0-94.0)
[2018-05-31] MEDS ORDERED: Sodium Bicarbonate (8.4%) 50 Meq Syringe ONE (11:45)
[2018-05-31 11:55] LABS: INR 1.4
[2018-05-31] MEDS ORDERED: Sodium Bicarbonate (8.4%) 50 Meq Syringe IVP ONE (11:57)
[2018-05-31 12:03] LABS: TROPONIN I 0.084 ng/mL (0.00-0.120)
[2018-05-31] MEDS ORDERED: (Novolin R) Insulin Human Regular 100 units/ml vial IVP ONE (12:08)
[2018-05-31] MEDS ORDERED: Dextrose 50% SYRINGE Inj (50 ml) IV STA (12:09)
[2018-05-31] MEDS ORDERED: Dextrose 50% SYRINGE Inj (50 ml) ONE (12:10)
[2018-05-31] MEDS ORDERED: (Novolin R) Insulin Human Regular 100 units/ml vial ONE (12:10)
[2018-05-31 12:19] LABS: ALB/GLOB RATIO 1.1 (1.0-2.1); ALBUMIN 3.9 g/dL (3.5-5.0); CALCIUM 9.3 mg/dl (8.6-10.4)
[2018-05-31] MEDS ORDERED: Nitroglycerin 50mg in D5W 50 MG/250 ML BOTTLE IV ONE (12:20)
[2018-05-31 12:25] LABS: ABG ALLEN TEST YE; ARTERIAL BLOOD GAS HCO3 27.2 mmol/L (21-28); ARTERIAL BLOOD GAS O2 SAT 98.5 % (95-98); ARTERIAL BLOOD GAS PCO2 46 mm/Hg (35-45); ARTERIAL BLOOD GAS PO2 85 mm/Hg (80-100); ARTERIAL BLOOD GAS TCO2 29.9 mmol/L (22-28)
[2018-05-31] MEDS ORDERED: Amiodarone 150mg/3 ml vial ONE (12:25)
--- NOTE | 2018-05-31 13:50 | CP.PCM.CON ---
<[place] Payton - Last Filed: 05/31/18 15:05> Review of Systems - Review of Systems Systems not reviewed;Unavailable: Altered Mental Status Meds Allergies/Adverse Reactions: Allergies Allergy/AdvReac Type Severity Reaction Status Date / Time acetaminophen [From Percocet] Allergy RASH Verified 05/07/18 11:00 atenolol Allergy RASH Verified 05/07/18 11:00 digoxin Allergy RASH Verified 05/07/18 11:00 milk Allergy ITCHING Verified 05/07/18 11:00 morphine Allergy RASH Verified 05/07/18 11:00 oxycodone HCl [From Percocet] Allergy RASH Verified 05/07/18 11:00 - Medications Medications: Current Medications Amiodarone HCl (Cordarone) 200 mg PO DAILY ASHLEY Aspirin (Aspirin Chewable) 81 mg PO DAILY ASHLEY Diltiazem HCl (Cardizem) 30 mg PO QID ASHLEY Hydromorphone HCl (Dilaudid) 2 mg PO Q6H PRN PRN Reason: Pain, severe (8-10) Losartan Potassium (Cozaar) 100 mg PO DAILY ASHLEY Rosuvastatin Calcium (Crestor) 10 mg PO HS ASHLEY Physical Exam - Head Exam Head Exam: ATRAUMATIC, NORMAL INSPECTION, NORMOCEPHALIC - Eye Exam Additional comments: blind in both eyes - Respiratory Exam Respiratory Exam: Decreased Breath Sounds, Rales, Rhonchi - Cardiovascular Exam Cardiovascular Exam: Tachycardia - GI/Abdominal Exam GI & Abdominal Exam: Normal Bowel Sounds, Soft. absent: Tenderness - Extremities Exam Additional comments: bilateral AKA. - Neurological Exam Neurological exam: Altered Results - Vital Signs Recent Vital Signs: Last Vital Signs Temp 98.4 F 05/31/18 14:30 Pulse 100 H 05/31/18 14:30 Resp 15 05/31/18 14:30 BP 192/87 H 05/31/18 14:45 Pulse Ox 100 05/31/18 14:30 - Labs Result Diagrams: 05/31/18 11:34 05/31/18 11:34 Labs: Laboratory Results - last 24 hr 05/31/18 05/31/18 05/31/18 11:34 11:34 11:34 WBC 17.0 H D RBC 3.36 L Hgb 9.9 L Hct 31.7 L MCV 94.5 H D MCH 29.6 MCHC 31.3 L RDW 20.1 H Plt Count 273 MPV 9.5 Neut % (Auto) 88.7 H Lymph % (Auto) 5.7 L [place] % (Auto) 4.9 Eos % (Auto) 0.2 Baso % (Auto) 0.5 Neut # (Auto) 15.1 H Lymph # (Auto) 1.0 [place] # (Auto) 0.8 Eos # (Auto) 0.0 Baso # (Auto) 0.1 Neutrophils % (Manual) 89 H Band Neutrophils % 1 Lymphocytes % (Manual) 8 L Monocytes % (Manual) 2 Platelet Estimate Normal Polychromasia Slight Hypochromasia (manual) Slight Poikilocytosis (manual Slight Anisocytosis (manual) Moderate Microcytosis (manual) Slight Macrocytosis (manual) Slight Ovalocytes Slight PT 15.0 H INR 1.4 APTT 210 H* Puncture Site pCO2 pO2 HCO3 ABG pH ABG Total CO2 ABG O2 Saturation ABG Base Excess Rush Test ABG Potassium A-a O2 Difference Respiratory Index Glucose Lactate Vent Mode FiO2 Inspiratory BiPAP Expiratory BiPAP Sodium 138 Potassium 3.7 Chloride 97 L Carbon Dioxide 27 Anion Gap 18 BUN 32 H Creatinine 4.5 H Est GFR ( Amer) 18 Est GFR (Non-Af Amer) 15 POC Glucose (mg/dL) Random Glucose 266 H Calcium 9.3 Phosphorus 2.8 Magnesium 2.0 Total Bilirubin 0.6 AST 19 ALT 18 L Alkaline Phosphatase 178 H Troponin I 0.0840 NT-Pro-B Natriuret Pep 638011 H Total Protein 7.4 Albumin 3.9 Globulin 3.5 Albumin/Globulin Ratio 1.1 Arterial Blood Potassium 05/31/18 05/31/18 05/31/18 12:05 12:13 13:21 WBC RBC Hgb Hct MCV MCH MCHC RDW Plt Count MPV Neut % (Auto) Lymph % (Auto) [place] % (Auto) Eos % (Auto) Baso % (Auto) Neut # (Auto) Lymph # (Auto) [place] # (Auto) Eos # (Auto) Baso # (Auto) Neutrophils % (Manual) Band Neutrophils % Lymphocytes % (Manual) Monocytes % (Manual) Platelet Estimate Polychromasia Hypochromasia (manual) Poikilocytosis (manual Anisocytosis (manual) Microcytosis (manual) Macrocytosis (manual) Ovalocytes PT INR APTT Puncture Site Left radial pCO2 46 H pO2 85 HCO3 27.2 ABG pH 7.40 ABG Total CO2 29.9 H ABG O2 Saturation 98.5 H ABG Base Excess 3.0 Rush Test Ye ABG Potassium 3.1 L A-a O2 Difference 571.0 Respiratory Index 6.7 Glucose 278 H Lactate 1.8 Vent Mode Bipap FiO2 100.0 Inspiratory BiPAP 12 Expiratory BiPAP 6 Sodium 140.0 Potassium Chloride 103.0 Carbon Dioxide Anion Gap BUN Creatinine Est GFR ( Amer) Est GFR (Non-Af Amer) POC Glucose (mg/dL) 289 H 291 H Random Glucose Calcium Phosphorus Magnesium Total Bilirubin AST ALT Alkaline Phosphatase Troponin I NT-Pro-B Natriuret Pep Total Protein Albumin Globulin Albumin/Globulin Ratio Arterial Blood Potassium 3.1 L Attending/Attestation - Attestation I have personally seen and examined this patient.: Yes I have fully participated in the care of the patient.: Yes I have reviewed all pertinent clinical information: Yes Notes (Text): 05/31/18 15:06 I have seen and examined the patient. Medical records, lab studies, and imaging were reviewed by me and a management plan was formulated on multidisciplinary rounds with resident Dr. Martino. I agree with their documented assessment and plan. Patient went into SVT with aberrancy in ED secondary to acute respiratory failure with hypoxia secondary to pulmonary edema, treated with amiodarone bolus. Starting dialysis for fluid removal to improve pulmonary edema. Critical Care Time 35 minutes. Multi-disciplinary rounds were performed with house staff, nursing, speech therapy, respiratory therapy, pharmacy and nutrition with integrated input from the primary team/attending and other consulting services. The documented time is cumulative and includes review of patient data/exams/labs/chart review and examination of the patient on rounds and throughout the day; time is exclusive of any procedures or teaching time. <Steve Martino - Last Filed: 05/31/18 20:34> History of Present Illness - History of Present Illness History of Present Illness: ICU Consult Note ANGE Parikh PGY-3 This is a 37 yo transgender (M -> F) with notable PMH of ESRD on HD (//Sat) via permacath, bilateral BKA, chronic anemia, hyperphosphatemia, secondary hyperparathyroidism, DM, HTN, CAD s/p CABG, diastolic CHF, paroxysmal Aflutter/Afib, intra-cardiac thrombus, hx HIT, and multiple prior admissions 2/2 missed HD sessions who presented today with complaint of SOB and chronic chest pain. Missed last HD . Also of concern in the ED was tachycardia with what appeared to be runs of VTach on telemetry, but not seen on EKG, for which she was given Amiodarone 150mg bolus. As per Cardio, this was SVT with aberrancy, not VTach, so further Amio was held. Patient was also noted to have extensive bilateral rales, and CXR concerning for bilateral pleural effusion, likely fluid overload in setting of missed HD (makes NO urine). At time of exam, patient fatigued but on Bipap, tolerating well. Speaking minimally, but admits to chronic chest pain, shortness of breath, denies emesis. PMH: extensive, including as listed above, also reported hx of blindness, seizures PSH: CABG (12/2009), Cholecystectomy (2011), Coronary Stent Fam Hx: pt unsure Soc Hx: denies tobacco/alcohol/illicits PMD: Dr. Li Review of Systems - Review of Systems All systems: reviewed and no additional remarkable complaints except (as per HPI) Past Patient History - Infectious Disease Hx of Infectious Diseases: None - Tetanus Immunizations Tetanus Immunization: >10 years Ago - Past Medical History & Family History Past Medical History?: Yes - Past Social History Smoking Status: Never Smoked - CARDIAC Hx Atrial Fibrillation: Yes Hx Cardia Arrhythmia: Yes Hx Congestive Heart Failure: Yes Hx Hypercholesterolemia: Yes Hx Hypertension: Yes - PULMONARY Hx Asthma: Yes Hx Bronchitis: Yes Hx Chronic Obstructive Pulmonary Disease (COPD): Yes Hx Pneumonia: Yes - NEUROLOGICAL Hx Alzheimer's Disease: Yes Hx Seizures: Yes - HEENT Hx HEENT Problems: Yes Hx Blind: Yes Hx Cataracts: Yes - RENAL Hx Chronic Kidney Disease: Yes Hx Kidney Stones: No - ENDOCRINE/METABOLIC Hx Hyperthyroidism: No Hx Hypothyroidism: Yes - HEMATOLOGICAL/ONCOLOGICAL Hx Anemia: Yes - INTEGUMENTARY Hx Dermatological Problems: No - MUSCULOSKELETAL/RHEUMATOLOGICAL Hx Arthritis: Yes - GASTROINTESTINAL Hx Gall Bladder Disease: Yes Hx Gastritis: Yes - GENITOURINARY/GYNECOLOGICAL Hx Sexually Transmitted Disorders: No - PSYCHIATRIC Hx Anxiety: Yes Hx Depression: Yes Hx Substance Use: No - SURGICAL HISTORY Hx Cholecystectomy: Yes (2011) 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/2009) Hx Coronary Stent: Yes - ANESTHESIA Hx Anesthesia: Yes Hx Anesthesia Reactions: No Hx Malignant Hyperthermia: No Physical Exam - Constitutional Appears: Other (improved but still present respiratory distress on Bipap) - Head Exam Head Exam: ATRAUMATIC, NORMAL INSPECTION, NORMOCEPHALIC - Eye Exam Eye Exam: absent: Conjunctival injection, EOMI, Scleral icterus Pupil Exam: absent: Fixed, Irregular Additional comments: bilateral blindness, unable to track for EOMI, no acute scarring appreciated - ENT Exam ENT Exam: Mucous Membranes Moist Additional comments: wearing Bipap - Respiratory Exam Respiratory Exam: Decreased Breath Sounds, Rales (diffuse rales in all davis), Respiratory Distress (improved but still not breathing at relaxed pace on Bipap). absent: Chest Wall Tenderness, Clear to Auscultation Bilateral, Wheezes, Stridor, NORMAL BREATHING PATTERN - Cardiovascular Exam Cardiovascular Exam: Tachycardia, REGULAR RHYTHM, +S1, +S2. absent: Bradycardia, Irregular Rhythm, JVD - GI/Abdominal Exam GI & Abdominal Exam: Normal Bowel Sounds, Soft. absent: Distended, Firm, Rigid, Tenderness - Extremities Exam Additional comments: Bilateral BKA, no appreciable ulcers or bleeding at stumps, no active discharge - Neurological Exam Additional comments: somnolent and uncooperative for exam, minimally following commands - Psychiatric Exam Additional comments: unable to assess, somnolent and uncooperative - Skin Skin Exam: Dry, Intact, Normal Color, Warm Results - Vital Signs Recent Vital Signs: Last Vital Signs Temp Pulse 97 H 05/31/18 13:41 Resp 16 05/31/18 13:41 BP 180/112 H 05/31/18 13:41 Pulse Ox 100 05/31/18 13:41 - Labs Result Diagrams: 05/31/18 11:34 05/31/18 11:34 Labs: Laboratory Results - last 24 hr 05/31/18 05/31/18 05/31/18 11:34 11:34 11:34 WBC 17.0 H D RBC 3.36 L Hgb 9.9 L Hct 31.7 L MCV 94.5 H D MCH 29.6 MCHC 31.3 L RDW 20.1 H Plt Count 273 MPV 9.5 Neut % (Auto) 88.7 H Lymph % (Auto) 5.7 L [place] % (Auto) 4.9 Eos % (Auto) 0.2 Baso % (Auto) 0.5 Neut # (Auto) 15.1 H Lymph # (Auto) 1.0 [place] # (Auto) 0.8 Eos # (Auto) 0.0 Baso # (Auto) 0.1 PT 15.0 H INR 1.4 APTT 210 H* Puncture Site pCO2 pO2 HCO3 ABG pH ABG Total CO2 ABG O2 Saturation ABG Base Excess Rush Test ABG Potassium A-a O2 Difference Respiratory Index Glucose Lactate Vent Mode FiO2 Inspiratory BiPAP Expiratory BiPAP Sodium 138 Potassium 3.7 Chloride 97 L Carbon Dioxide 27 Anion Gap 18 BUN 32 H Creatinine 4.5 H Est GFR ( Amer) 18 Est GFR (Non-Af Amer) 15 POC Glucose (mg/dL) Random Glucose 266 H Calcium 9.3 Phosphorus 2.8 Magnesium 2.0 Total Bilirubin 0.6 AST 19 ALT 18 L Alkaline Phosphatase 178 H Troponin I 0.0840 NT-Pro-B Natriuret Pep 211240 H Total Protein 7.4 Albumin 3.9 Globulin 3.5 Albumin/Globulin Ratio 1.1 Arterial Blood Potassium 05/31/18 05/31/18 05/31/18 12:05 12:13 13:21 WBC RBC Hgb Hct MCV MCH MCHC RDW Plt Count MPV Neut % (Auto) Lymph % (Auto) [place] % (Auto) Eos % (Auto) Baso % (Auto) Neut # (Auto) Lymph # (Auto) [place] # (Auto) Eos # (Auto) Baso # (Auto) PT INR APTT Puncture Site Left radial pCO2 46 H pO2 85 HCO3 27.2 ABG pH 7.40 ABG Total CO2 29.9 H ABG O2 Saturation 98.5 H ABG Base Excess 3.0 Rush Test Ye ABG Potassium 3.1 L A-a O2 Difference 571.0 Respiratory Index 6.7 Glucose 278 H Lactate 1.8 Vent Mode Bipap FiO2 100.0 Inspiratory BiPAP 12 Expiratory BiPAP 6 Sodium 140.0 Potassium Chloride 103.0 Carbon Dioxide Anion Gap BUN Creatinine Est GFR ( Amer) Est GFR (Non-Af Amer) POC Glucose (mg/dL) 289 H 291 H Random Glucose Calcium Phosphorus Magnesium Total Bilirubin AST ALT Alkaline Phosphatase Troponin I NT-Pro-B Natriuret Pep Total Protein Albumin Globulin Albumin/Globulin Ratio Arterial Blood Potassium 3.1 L Assessment & Plan - Assessment and Plan (Free Text) Assessment: This is a 37 yo transgender (M -> F) with notable PMH of ESRD on HD (T//Sat) via permacath, bilateral BKA, chronic anemia, DM, HTN, CAD s/p CABG, diastolic CHF, paroxysmal Aflutter/Afib, and hx HIT who presented today with complaint of SOB and chronic chest pain, likely 2/2 missed HD. Admitted to ICU for pending HD and concerns in ED for possible VTach. Plan: Neuro: -lethargic but arousable, uncooperative was given 1x dose of IV dilaudid by PMD, but in setting of resp distress and lethargy, will stop and recommend avoiding any further opioids at this time -maintain normothermia -aspiration precautions Pulm: -CXR obtained in ED, highly concerning for fluid overload/pulm edema, also possible aspiration -As per ED, desatted to 70's on NC, switched to Bipap, satting improved, continue Bipap -ABG reviewed, concerning for pco2 46 (retention) & po2 85 on 100% FiO2; if w orsening po2 or patient is unable to tolerate, high risk of needing intubation -WBCs 17, PNA vs stress elevation 2/2 respiratory distress, empirically covering with Vanc/Zosyn -Procal and cx pending Cardio: -pending HD for removal of excess retained fluid -HTN, SBP 140's-160's in ED, maintaining MAP > 65 -ARB started by PMD, but recommend against given effect of ARBs to cause increased K, jeff in setting of ESRD, might instead consider Norvasc + PRN hydralazine -Cardio consulted, appreciate all recs; SVT with aberrancy, not VTach in ED -Continue ASA 81mg, Statin, Home PO diltiazem and amiodarone. GI: -NPO due to lethargy and Bipap, increased risk of aspirations -Protonix for GI ppx Renal: -ESRD on HD, missed last session, pending HD today -K wnl (3.7) on labs, monitor for acute increases given ESRD -Monitor electrolytes, but defer repletions unless critically low due to ESRD -Nephro consulted, appreciate all recs Heme: -Hgb 9.9, baseline per prior charting appears to be 8-11 -borderline macrocytic with noticeably wide RDW, anemia of chronic disease +/- nutritional component -no need for transfusions at this time, monitor -hx of HIT, heparin contraindicated for DVT ppx, and hx BKA, so unable to wear SCDs ID: -Leukocytosis of 17, but afebrile -stress reaction from resp distress vs PNA, concern for aspiration PNA so need anaerobic coverage -Vanco and Zosyn empirically, cultures and procal pending, f/u Dispo: Admitted to ICU pending HD for acute fluid overload causing acute respiratory distress FEN: NPO Access: Peripheral IVs, permacath (for HD) Consults: Cardio, Nephro, ICU Ppx: Protonix for GI, contraindications for DVT ppx (Hx HIT, so heparin contraindicated, and BKA, so cannot wear SCDs) Code Status: Unknown, so FULL by default Seen, reviewed, and discussed with attending, Dr. Payton
[2018-05-31 14:03] LABS: BANDS 1 % (0-2); TOTAL CELLS COUNTED 100
[2018-05-31 14:04] LABS: LYMPHOCYTE 8 % (20-40); MONOCYTE 2 % (0-10); NEUTROPHIL 89 % (50-75); PLATELET ESTIMATE NORMAL (NORMAL)
[2018-05-31 14:05] LABS: ANISOCYTOSIS MODERATE; HYPOCHROMIC SLIGHT; MICROCYTOSIS SLIGHT; OVALOCYTES SLIGHT; POIKILOCYTOSIS SLIGHT; POLYCHROMIC SLIGHT
--- NOTE | 2018-05-31 14:24 | CP.PCM.HP ---
History of Present Illness - History of Present Illness History of Present Illness: pt came in [facility] chest pain mised dialysis has palpitation arrythmia and sob chf pulmonary oeadeama Present on Admission - Present on Admission Any Indicators Present on Admission: Yes History of Uncontrolled Diabetes: Yes Review of Systems - Review of Systems Systems not reviewed;Unavailable: Acuity of Condition - Constitutional Constitutional: Fatigue - EENT Eyes: Loss of Peripheral Vision, Other Visual Disturbances Ears: As Per HPI Nose/Mouth/Throat: As Per HPI - Cardiovascular Cardiovascular: Chest Pain at Rest, Dyspnea, Irregular Heart Rhythm, Palpitations - Respiratory Respiratory: Dyspnea, Dyspnea on Exertion, Chest Congestion - Gastrointestinal Gastrointestinal: Cramping - Genitourinary Additional comments: esrf - Reproductive: Male Additional comments: klinfilter - Musculoskeletal Additional comments: s/p ampuyation - Integumentary Integumentary: As Per HPI - Neurological Neurological: Convulsions - Psychiatric Psychiatric: Depression - Endocrine Endocrine: Cold Intolorance - Hematologic/Lymphatic Additional comments: ANEAMIA Past Patient History - Infectious Disease Hx of Infectious Diseases: None - Tetanus Immunizations Tetanus Immunization: >10 years Ago - Past Medical History & Family History Past Medical History?: Yes - Past Social History Smoking Status: Never Smoked - CARDIAC Hx Atrial Fibrillation: Yes Hx Cardia Arrhythmia: Yes Hx Congestive Heart Failure: Yes Hx Hypercholesterolemia: Yes Hx Hypertension: Yes - PULMONARY Hx Asthma: Yes Hx Bronchitis: Yes Hx Chronic Obstructive Pulmonary Disease (COPD): Yes Hx Pneumonia: Yes - NEUROLOGICAL Hx Alzheimer's Disease: Yes Hx Seizures: Yes - HEENT Hx HEENT Problems: Yes Hx Blind: Yes Hx Cataracts: Yes - RENAL Hx Chronic Kidney Disease: Yes Hx Kidney Stones: No - ENDOCRINE/METABOLIC Hx Hyperthyroidism: No Hx Hypothyroidism: Yes - HEMATOLOGICAL/ONCOLOGICAL Hx Anemia: Yes - INTEGUMENTARY Hx Dermatological Problems: No - MUSCULOSKELETAL/RHEUMATOLOGICAL Hx Arthritis: Yes - GASTROINTESTINAL Hx Gall Bladder Disease: Yes Hx Gastritis: Yes - GENITOURINARY/GYNECOLOGICAL Hx Sexually Transmitted Disorders: No - PSYCHIATRIC Hx Anxiety: Yes Hx Depression: Yes Hx Substance Use: No - SURGICAL HISTORY Hx Cholecystectomy: Yes (2011) 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/2009) Hx Coronary Stent: Yes - ANESTHESIA Hx Anesthesia: Yes Hx Anesthesia Reactions: No Hx Malignant Hyperthermia: No Meds Allergies/Adverse Reactions: Allergies Allergy/AdvReac Type Severity Reaction Status Date / Time acetaminophen [From Percocet] Allergy RASH Verified 05/07/18 11:00 atenolol Allergy RASH Verified 05/07/18 11:00 digoxin Allergy RASH Verified 05/07/18 11:00 milk Allergy ITCHING Verified 05/07/18 11:00 morphine Allergy RASH Verified 05/07/18 11:00 oxycodone HCl [From Percocet] Allergy RASH Verified 05/07/18 11:00 Physical Exam - Constitutional Appears: In Acute Distress - Head Exam Head Exam: ATRAUMATIC - Eye Exam Eye Exam: Conjunctival injection Additional comments: LEGALY BLIND - ENT Exam ENT Exam: Mucous Membranes Moist - Neck Exam Neck exam: Positive for: Normal Inspection - Respiratory Exam Respiratory Exam: Decreased Breath Sounds, Rales, Respiratory Distress - Cardiovascular Exam Cardiovascular Exam: Irregular Rhythm, +S1, +S2, +S4 - GI/Abdominal Exam GI & Abdominal Exam: Normal Bowel Sounds - Rectal Exam Rectal Exam: NORMAL INSPECTION - Exam Additional comments: AMBIGUIAS GENETALIA - Extremities Exam Additional comments: S/P AMPUTATION - Back Exam Back exam: NORMAL INSPECTION - Neurological Exam Neurological exam: Oriented x3 - Psychiatric Exam Psychiatric exam: Depressed - Skin Skin Exam: Pallor Results - Vital Signs Recent Vital Signs: Last Vital Signs Temp Pulse 97 H 05/31/18 13:41 Resp 16 05/31/18 13:41 BP 180/112 H 05/31/18 13:41 Pulse Ox 100 05/31/18 13:41 - Labs Result Diagrams: 05/31/18 11:34 05/31/18 11:34 Labs: Laboratory Results - last 24 hr 05/31/18 05/31/18 05/31/18 11:34 11:34 11:34 WBC 17.0 H D RBC 3.36 L Hgb 9.9 L Hct 31.7 L MCV 94.5 H D MCH 29.6 MCHC 31.3 L RDW 20.1 H Plt Count 273 MPV 9.5 Neut % (Auto) 88.7 H Lymph % (Auto) 5.7 L [place] % (Auto) 4.9 Eos % (Auto) 0.2 Baso % (Auto) 0.5 Neut # (Auto) 15.1 H Lymph # (Auto) 1.0 [place] # (Auto) 0.8 Eos # (Auto) 0.0 Baso # (Auto) 0.1 Neutrophils % (Manual) 89 H Band Neutrophils % 1 Lymphocytes % (Manual) 8 L Monocytes % (Manual) 2 Platelet Estimate Normal Polychromasia Slight Hypochromasia (manual) Slight Poikilocytosis (manual Slight Anisocytosis (manual) Moderate Microcytosis (manual) Slight Macrocytosis (manual) Slight Ovalocytes Slight PT 15.0 H INR 1.4 APTT 210 H* Puncture Site pCO2 pO2 HCO3 ABG pH ABG Total CO2 ABG O2 Saturation ABG Base Excess Rush Test ABG Potassium A-a O2 Difference Respiratory Index Glucose Lactate Vent Mode FiO2 Inspiratory BiPAP Expiratory BiPAP Sodium 138 Potassium 3.7 Chloride 97 L Carbon Dioxide 27 Anion Gap 18 BUN 32 H Creatinine 4.5 H Est GFR ( Amer) 18 Est GFR (Non-Af Amer) 15 POC Glucose (mg/dL) Random Glucose 266 H Calcium 9.3 Phosphorus 2.8 Magnesium 2.0 Total Bilirubin 0.6 AST 19 ALT 18 L Alkaline Phosphatase 178 H Troponin I 0.0840 NT-Pro-B Natriuret Pep 705911 H Total Protein 7.4 Albumin 3.9 Globulin 3.5 Albumin/Globulin Ratio 1.1 Arterial Blood Potassium 05/31/18 05/31/18 05/31/18 12:05 12:13 13:21 WBC RBC Hgb Hct MCV MCH MCHC RDW Plt Count MPV Neut % (Auto) Lymph % (Auto) [place] % (Auto) Eos % (Auto) Baso % (Auto) Neut # (Auto) Lymph # (Auto) [place] # (Auto) Eos # (Auto) Baso # (Auto) Neutrophils % (Manual) Band Neutrophils % Lymphocytes % (Manual) Monocytes % (Manual) Platelet Estimate Polychromasia Hypochromasia (manual) Poikilocytosis (manual Anisocytosis (manual) Microcytosis (manual) Macrocytosis (manual) Ovalocytes PT INR APTT Puncture Site Left radial pCO2 46 H pO2 85 HCO3 27.2 ABG pH 7.40 ABG Total CO2 29.9 H ABG O2 Saturation 98.5 H ABG Base Excess 3.0 Rush Test Ye ABG Potassium 3.1 L A-a O2 Difference 571.0 Respiratory Index 6.7 Glucose 278 H Lactate 1.8 Vent Mode Bipap FiO2 100.0 Inspiratory BiPAP 12 Expiratory BiPAP 6 Sodium 140.0 Potassium Chloride 103.0 Carbon Dioxide Anion Gap BUN Creatinine Est GFR ( Amer) Est GFR (Non-Af Amer) POC Glucose (mg/dL) 289 H 291 H Random Glucose Calcium Phosphorus Magnesium Total Bilirubin AST ALT Alkaline Phosphatase Troponin I NT-Pro-B Natriuret Pep Total Protein Albumin Globulin Albumin/Globulin Ratio Arterial Blood Potassium 3.1 L Assessment & Plan - Assessment and Plan (Free Text) Assessment: AC PULMONARY OEADEAMA CHF CHEST PAIN CAD CARDIAC ARYTHMIA ESRF HYPOKALEAMIA HTN DMID Plan: ADMIT TI ICU CARDIOLOGY CONSULT - Date & Time Date: 05/31/18 Time: 14:30
--- NOTE | 2018-05-31 14:48 | RAD ---
Date of service: 05/31/2018 PROCEDURE: CHEST RADIOGRAPH, 1 VIEW HISTORY: chest pain COMPARISON: Comparison chest 05/16/2018 FINDINGS: No change right IJ large bore dual-lumen dialysis catheter with tip in the in the region the possibly in the IVC/RA. LUNGS: Diffuse bilateral lung opacities likely representing pulmonary edema with alveolar-type infiltrates and large bilateral effusions. Changes have progressed when compared with the prior study PLEURA: No pneumothorax or pleural fluid seen. CARDIOVASCULAR: Heart size difficult to assess due to silhouetting both cardiac borders the heart a did appear large on the prior exam OSSEOUS STRUCTURES: No significant abnormalities. VISUALIZED UPPER ABDOMEN: Normal. OTHER FINDINGS: None. IMPRESSION: Progressive no pulmonary edema with bilateral alveolar-type infiltrates and bilateral effusions.
--- NOTE | 2018-05-31 15:08 | CP.PCM.CON ---
History of Present Illness - History of Present Illness History of Present Illness: Nephrology Consultation Note: Assessment:critical HTN emergency with Pulmonary edema , fluid overload acute respi failure chronic chest pain, A flutter Diabetic chronic Kidney Disease (E11.22) Hypertensive Chronic Kidney Disease (I12.0) End stage renal disease (N18.6) dependence on hemodialysis (Z99.2) (TTS) via AVF Anemia (D64.9), Hyperphosphatemia (E83.39), Secondary Hyperparathyroidism (E21.1), HTN (I12.0) CAD s/p CABG, diastolic CHF, parox A flutter/fib, intra-cardiac thrombus, hx of Heparin induced thrombocytopenia, hx of seizure, blindness Plan: plan for dialysis today as per TTS schedule Continue with Nephrovite 1 tab/day. BP high hence no HANNAH with HD for now. anticipate BP better controlled post HD Continue with phos binders home dose BP control with meds as ordered. Glycemic control, Dialysis consistent diet Further work up/management as per primary team Dose meds/antibiotics for ESRD status. Avoid fleets enema/magnesium based laxatives. Thanks for allowing me to participate in care of your patient. Will follow patient with you. Please call if any Qs. Dr Eric Temple Office: [phone] CC: chest pain, SOB reason for consult: ESRD HPI: Pt is a 37 y/o transgender with hx of ESRD on hemodialysis (TTS) via permacath, chronic anemia, hyperphosphatemia, secondary hyperparathyroidism, Diabetes Mellitus, hypertension, CAD s/p CABG, diastolic CHF, pA flutter/fib, intra-cardiac thrombus, Heparin induced thrombocytopenia in past presented with complaints of SOB and chronic chest pain, he was admitted to ICU due to HTN emergency with pulm edema ROS: limited from pt as he was on BiPAP All other negative except as in HPI. now better improved chronic chest pain, no GI symptoms. has SOB. feels sick Physical Examination: seen on HD General Appearance: in acute respiratory distress, co-operative .on BiPAP ill appearing Vitals reviewed and noted as below Head; Atraumatic, normocephalic ENT: no ulcers no thrush. Tongue is midline. Oropharynx: no rash or ulcers. EYES: Pt is blind both eyes Neck; supple no lymphadenopathy, no thyromegaly or bruit Lungs: Increased respiratory rate/effort. Breath sounds bilateral decreased at bases with crackles Heart: Normal rate. s1s2 normal. No rub or gallop. Extremities: no edema. No varicose veins. has b/l BKA. Neurological: Patient is awake follow commands no focal deficit Skin: Warm and dry. Normal turgor. No rash. Palpitation: Normal elasticity for age Abdomen: Abdomen is soft. Bowel sounds +. There is no abdominal tenderness, no guarding/rigidity or organomegaly Psych: limited insight and has normal affect/mood MSK: no joint tenderness or swelling. Digits and nails normal, no deformity : kidney or bladder not palpable Access: permacath Labs/imaging reviewed. Past medical history, past surgical history, family history, social history, allergy reviewed and noted as below Family Hx: no hx of CKD. Non contributory Past Patient History - Infectious Disease Hx of Infectious Diseases: None - Tetanus Immunizations Tetanus Immunization: >10 years Ago - Past Medical History & Family History Past Medical History?: Yes - Past Social History Smoking Status: Never Smoked - CARDIAC Hx Atrial Fibrillation: Yes Hx Cardia Arrhythmia: Yes Hx Congestive Heart Failure: Yes Hx Hypercholesterolemia: Yes Hx Hypertension: Yes - PULMONARY Hx Asthma: Yes Hx Bronchitis: Yes Hx Chronic Obstructive Pulmonary Disease (COPD): Yes Hx Pneumonia: Yes - NEUROLOGICAL Hx Alzheimer's Disease: Yes Hx Seizures: Yes - HEENT Hx HEENT Problems: Yes Hx Blind: Yes Hx Cataracts: Yes - RENAL Hx Chronic Kidney Disease: Yes Hx Kidney Stones: No - ENDOCRINE/METABOLIC Hx Hyperthyroidism: No Hx Hypothyroidism: Yes - HEMATOLOGICAL/ONCOLOGICAL Hx Anemia: Yes - INTEGUMENTARY Hx Dermatological Problems: No - MUSCULOSKELETAL/RHEUMATOLOGICAL Hx Arthritis: Yes - GASTROINTESTINAL Hx Gall Bladder Disease: Yes Hx Gastritis: Yes - GENITOURINARY/GYNECOLOGICAL Hx Sexually Transmitted Disorders: No - PSYCHIATRIC Hx Anxiety: Yes Hx Depression: Yes Hx Substance Use: No - SURGICAL HISTORY Hx Cholecystectomy: Yes (2011) 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/2009) Hx Coronary Stent: Yes - ANESTHESIA Hx Anesthesia: Yes Hx Anesthesia Reactions: No Hx Malignant Hyperthermia: No Meds Allergies/Adverse Reactions: Allergies Allergy/AdvReac Type Severity Reaction Status Date / Time acetaminophen [From Percocet] Allergy RASH Verified 05/07/18 11:00 atenolol Allergy RASH Verified 05/07/18 11:00 digoxin Allergy RASH Verified 05/07/18 11:00 milk Allergy ITCHING Verified 05/07/18 11:00 morphine Allergy RASH Verified 05/07/18 11:00 oxycodone HCl [From Percocet] Allergy RASH Verified 05/07/18 11:00 - Medications Medications: Current Medications Amiodarone HCl (Cordarone) 200 mg PO DAILY [facility] Aspirin (Aspirin Chewable) 81 mg PO DAILY [facility] Diltiazem HCl (Cardizem) 30 mg PO QID [facility] Hydromorphone HCl (Dilaudid) 2 mg PO Q6H PRN PRN Reason: Pain, severe (8-10) Losartan Potassium (Cozaar) 100 mg PO DAILY [facility] Rosuvastatin Calcium (Crestor) 10 mg PO HS [facility] Results - Vital Signs Recent Vital Signs: Last Vital Signs Temp 98.4 F 05/31/18 14:30 Pulse 100 H 05/31/18 14:30 Resp 15 05/31/18 14:30 BP 210/110 H 05/31/18 15:00 Pulse Ox 100 05/31/18 14:30 - Labs Result Diagrams: 05/31/18 11:34 05/31/18 11:34 Labs: Laboratory Results - last 24 hr 05/31/18 05/31/18 05/31/18 11:34 11:34 11:34 WBC 17.0 H D RBC 3.36 L Hgb 9.9 L Hct 31.7 L MCV 94.5 H D MCH 29.6 MCHC 31.3 L RDW 20.1 H Plt Count 273 MPV 9.5 Neut % (Auto) 88.7 H Lymph % (Auto) 5.7 L [place] % (Auto) 4.9 Eos % (Auto) 0.2 Baso % (Auto) 0.5 Neut # (Auto) 15.1 H Lymph # (Auto) 1.0 [place] # (Auto) 0.8 Eos # (Auto) 0.0 Baso # (Auto) 0.1 Neutrophils % (Manual) 89 H Band Neutrophils % 1 Lymphocytes % (Manual) 8 L Monocytes % (Manual) 2 Platelet Estimate Normal Polychromasia Slight Hypochromasia (manual) Slight Poikilocytosis (manual Slight Anisocytosis (manual) Moderate Microcytosis (manual) Slight Macrocytosis (manual) Slight Ovalocytes Slight PT 15.0 H INR 1.4 APTT 210 H* Puncture Site pCO2 pO2 HCO3 ABG pH ABG Total CO2 ABG O2 Saturation ABG Base Excess Rush Test ABG Potassium A-a O2 Difference Respiratory Index Glucose Lactate Vent Mode FiO2 Inspiratory BiPAP Expiratory BiPAP Sodium 138 Potassium 3.7 Chloride 97 L Carbon Dioxide 27 Anion Gap 18 BUN 32 H Creatinine 4.5 H Est GFR ( Amer) 18 Est GFR (Non-Af Amer) 15 POC Glucose (mg/dL) Random Glucose 266 H Calcium 9.3 Phosphorus 2.8 Magnesium 2.0 Total Bilirubin 0.6 AST 19 ALT 18 L Alkaline Phosphatase 178 H Troponin I 0.0840 NT-Pro-B Natriuret Pep 990355 H Total Protein 7.4 Albumin 3.9 Globulin 3.5 Albumin/Globulin Ratio 1.1 Arterial Blood Potassium 05/31/18 05/31/18 05/31/18 12:05 12:13 13:21 WBC RBC Hgb Hct MCV MCH MCHC RDW Plt Count MPV Neut % (Auto) Lymph % (Auto) [place] % (Auto) Eos % (Auto) Baso % (Auto) Neut # (Auto) Lymph # (Auto) [place] # (Auto) Eos # (Auto) Baso # (Auto) Neutrophils % (Manual) Band Neutrophils % Lymphocytes % (Manual) Monocytes % (Manual) Platelet Estimate Polychromasia Hypochromasia (manual) Poikilocytosis (manual Anisocytosis (manual) Microcytosis (manual) Macrocytosis (manual) Ovalocytes PT INR APTT Puncture Site Left radial pCO2 46 H pO2 85 HCO3 27.2 ABG pH 7.40 ABG Total CO2 29.9 H ABG O2 Saturation 98.5 H ABG Base Excess 3.0 Rush Test Ye ABG Potassium 3.1 L A-a O2 Difference 571.0 Respiratory Index 6.7 Glucose 278 H Lactate 1.8 Vent Mode Bipap FiO2 100.0 Inspiratory BiPAP 12 Expiratory BiPAP 6 Sodium 140.0 Potassium Chloride 103.0 Carbon Dioxide Anion Gap BUN Creatinine Est GFR ( Amer) Est GFR (Non-Af Amer) POC Glucose (mg/dL) 289 H 291 H Random Glucose Calcium Phosphorus Magnesium Total Bilirubin AST ALT Alkaline Phosphatase Troponin I NT-Pro-B Natriuret Pep Total Protein Albumin Globulin Albumin/Globulin Ratio Arterial Blood Potassium 3.1 L
[2018-05-31] MEDS ORDERED: Vancomycin 1 GM in Sodium Chloride 0.9% 200 ML IVPB STA (19:42)
[2018-05-31] MEDS: Piperacill/Tazo 2.25gm in Dex 2.25 GM/50 ML BAG IVPB SCH (22:19)
[2018-06-01] MEDS: Piperacill/Tazo 2.25gm in Dex 2.25 GM/50 ML BAG IVPB SCH ×3 (04:31→20:30)
--- NOTE | 2018-06-01 07:14 | CP.CCUPN ---
<Nathan Valle P - Last Filed: 06/01/18 17:26> CCU Objective - Vital Signs / Intake & Output Vital Signs (Last 4 hours): Vital Signs Pulse 06/01/18 13:46 96 H Intake and Output (Last 8hrs): Intake & Output 06/01/18 06/01/18 06/01/18 06:59 14:59 22:59 Intake Total 50 0 Output Total 0 0 Balance 50 0 Weight 108 lb 4.8 oz Intake: Intake, IV Amount 50 Left upper arm 50 Oral 0 0 Output: Urine 0 0 Urine, Voided 0 0 Other: # Bowel Movements 0 0 - Medications Active Medications: Active Medications Generic Name Dose Route Start Last Admin Trade Name Freq PRN Reason Stop Dose Admin Amiodarone HCl 200 mg 05/31/18 14:45 06/01/18 09:41 Cordarone PO 200 mg DAILY [facility] Administration Amlodipine Besylate 10 mg 06/01/18 10:00 Norvasc PO DAILY [facility] Aspirin 81 mg 05/31/18 14:45 06/01/18 09:41 Aspirin Chewable PO 81 mg DAILY [facility] Administration Calcitriol 0.25 mcg 06/03/18 10:00 Rocaltrol PO TTS [facility] Carvedilol 12.5 mg 06/01/18 10:00 Coreg PO BID [facility] Clopidogrel Bisulfate 75 mg 06/01/18 10:00 06/01/18 09:43 Plavix PO 75 mg DAILY [facility] Administration Diltiazem HCl 30 mg 05/31/18 18:00 06/01/18 09:41 Cardizem PO 30 mg QID [facility] Administration Docusate Sodium 100 mg 06/01/18 10:21 Colace PO BID PRN Constipation Hydromorphone HCl 1 mg 06/01/18 13:35 Dilaudid IVP Q4H PRN Pain, moderate (4-7) Piperacillin Sod/Tazobactam Sod 2.25 gm in 50 mls @ 100 mls/hr 05/31/18 20:00 06/01/18 04:31 Zosyn 2.25 Gm Iv Premix IVPB 100 mls/hr Q8H [facility] Administration Protocol Isosorbide Mononitrate 60 mg 06/01/18 10:00 06/01/18 09:42 Imdur PO 60 mg DAILY [facility] Administration Losartan Potassium 100 mg 05/31/18 14:45 06/01/18 09:41 Cozaar PO 100 mg DAILY [facility] Administration Montelukast Sodium 10 mg 06/01/18 22:00 Singulair PO HS [facility] Pantoprazole Sodium 20 mg 06/01/18 10:00 06/01/18 09:41 Protonix Ec Tab PO 20 mg DAILY [facility] Administration Rosuvastatin Calcium 10 mg 05/31/18 22:00 05/31/18 22:21 Crestor PO 10 mg HS [facility] Administration Vitamin B Complex/Vit C/Folic Acid 1 tab 06/02/18 08:00 Nephro-Courtney PO 0800 A[facility]LEY - Patient Studies Lab Studies: Microbiology Studies 05/31/18 12:30 Blood Culture - Preliminary Blood NO GROWTH AFTER 24 HOURS 05/31/18 12:30 Blood Culture - Preliminary Blood NO GROWTH AFTER 24 HOURS Lab Studies 06/01/18 06/01/18 06/01/18 Range/Units 12:40 11:17 10:31 WBC (4.8-10.8) K/uL RBC (4.40-5.90) Mil/uL Hgb (12.0-18.0) g/dL Hct (35.0-51.0) % MCV (80.0-94.0) fL MCH (27.0-31.0) pg MCHC (33.0-37.0) g/dL RDW (11.5-14.5) % Plt Count (130-400) K/uL MPV (7.2-11.7) fL Neut % (Auto) (50.0-75.0) % Lymph % (Auto) (20.0-40.0) % Donley % (Auto) (0.0-10.0) % Eos % (Auto) (0.0-4.0) % Baso % (Auto) (0.0-2.0) % Neut # (Auto) (1.8-7.0) K/uL Lymph # (Auto) (1.0-4.3) K/uL Donley # (Auto) (0.0-0.8) K/uL Eos # (Auto) (0.0-0.7) K/uL Baso # (Auto) (0.0-0.2) K/uL Neutrophils % (Manual) (50-75) % Band Neutrophils % (0-2) % Lymphocytes % (Manual) (20-40) % Monocytes % (Manual) (0-10) % Eosinophils % (Manual) (0-4) % Platelet Estimate (NORMAL) Large Platelets Polychromasia Hypochromasia (manual) Poikilocytosis (manual Anisocytosis (manual) Macrocytosis (manual) Ovalocytes Schistocytes Puncture Site Rba pCO2 45 (35-45) mm/Hg pO2 96 (80-100) mm/Hg HCO3 29.3 H (21-28) mmol/L ABG pH 7.44 (7.35-7.45) ABG Total CO2 32.0 H (22-28) mmol/L ABG O2 Saturation 98.8 H (95-98) % ABG Base Excess 5.6 H (-2.0-3.0) mmol/L Rush Test Na ABG Potassium 3.2 L (3.6-5.2) mmol/L A-a O2 Difference 276.0 mm/Hg Respiratory Index 2.9 Glucose 186 H (75-110) mg/dl Lactate 1.1 (0.7-2.1) mmol/L Vent Mode Bipap Mechanical Rate 12 FiO2 60.0 % Inspiratory BiPAP 12 Expiratory BiPAP 6 Sodium 138.0 (132-148) mmol/L Potassium (3.6-5.2) mmol/L Chloride 105.0 (98-107) mmol/L Carbon Dioxide (22-30) mmol/L Anion Gap (10-20) BUN (9-20) mg/dL Creatinine (0.8-1.5) mg/dL Est GFR ( Amer) Est GFR (Non-Af Amer) POC Glucose (mg/dL) 191 H (65-110) mg/dL Random Glucose (75-110) mg/dL Calcium (8.6-10.4) mg/dl Phosphorus (2.5-4.5) mg/dL Magnesium (1.6-2.3) mg/dL Total Bilirubin (0.2-1.3) mg/dL AST (17-59) U/L ALT (21-72) U/L Alkaline Phosphatase (38-126) U/L Total Protein (6.3-8.3) g/dL Albumin (3.5-5.0) g/dL Globulin (2.2-3.9) gm/dL Albumin/Globulin Ratio (1.0-2.1) Procalcitonin (0.19-0.49) NG/ML Arterial Blood Potassium 3.2 L (3.6-5.2) mmol/L Valproic Acid < 10.0 L (50.0-100.0) ug/mL 06/01/18 06/01/18 06/01/18 Range/Units 10:31 10:31 06:45 WBC 18.2 H (4.8-10.8) K/uL RBC 3.12 L (4.40-5.90) Mil/uL Hgb 9.5 L (12.0-18.0) g/dL Hct 29.5 L (35.0-51.0) % MCV 94.6 H (80.0-94.0) fL MCH 30.5 (27.0-31.0) pg MCHC 32.2 L (33.0-37.0) g/dL RDW 21.1 H (11.5-14.5) % Plt Count 242 (130-400) K/uL MPV 9.9 (7.2-11.7) fL Neut % (Auto) 85.5 H (50.0-75.0) % Lymph % (Auto) 6.5 L (20.0-40.0) % Donley % (Auto) 6.7 (0.0-10.0) % Eos % (Auto) 0.9 (0.0-4.0) % Baso % (Auto) 0.4 (0.0-2.0) % Neut # (Auto) 15.6 H (1.8-7.0) K/uL Lymph # (Auto) 1.2 (1.0-4.3) K/uL Donley # (Auto) 1.2 H (0.0-0.8) K/uL Eos # (Auto) 0.2 (0.0-0.7) K/uL Baso # (Auto) 0.1 (0.0-0.2) K/uL Neutrophils % (Manual) 82 H (50-75) % Band Neutrophils % 2 (0-2) % Lymphocytes % (Manual) 8 L (20-40) % Monocytes % (Manual) 7 (0-10) % Eosinophils % (Manual) 1 (0-4) % Platelet Estimate Normal (NORMAL) Large Platelets Present Polychromasia Slight Hypochromasia (manual) Slight Poikilocytosis (manual Slight Anisocytosis (manual) Moderate Macrocytosis (manual) Slight Ovalocytes Slight Schistocytes Slight Puncture Site pCO2 (35-45) mm/Hg pO2 (80-100) mm/Hg HCO3 (21-28) mmol/L ABG pH (7.35-7.45) ABG Total CO2 (22-28) mmol/L ABG O2 Saturation (95-98) % ABG Base Excess (-2.0-3.0) mmol/L Rush Test ABG Potassium (3.6-5.2) mmol/L A-a O2 Difference mm/Hg Respiratory Index Glucose (75-110) mg/dl Lactate (0.7-2.1) mmol/L Vent Mode Mechanical Rate FiO2 % Inspiratory BiPAP Expiratory BiPAP Sodium 140 (132-148) mmol/L Potassium 3.7 (3.6-5.2) mmol/L Chloride 97 L (98-107) mmol/L Carbon Dioxide 28 (22-30) mmol/L Anion Gap 19 (10-20) BUN 20 (9-20) mg/dL Creatinine 3.0 H (0.8-1.5) mg/dL Est GFR ( Amer) 29 Est GFR (Non-Af Amer) 24 POC Glucose (mg/dL) 180 H (65-110) mg/dL Random Glucose 172 H (75-110) mg/dL Calcium 9.5 (8.6-10.4) mg/dl Phosphorus 2.4 L (2.5-4.5) mg/dL Magnesium 2.1 (1.6-2.3) mg/dL Total Bilirubin 1.0 (0.2-1.3) mg/dL AST 25 (17-59) U/L ALT 18 L (21-72) U/L Alkaline Phosphatase 149 H (38-126) U/L Total Protein 7.2 (6.3-8.3) g/dL Albumin 3.8 (3.5-5.0) g/dL Globulin 3.4 (2.2-3.9) gm/dL Albumin/Globulin Ratio 1.1 (1.0-2.1) Procalcitonin (0.19-0.49) NG/ML Arterial Blood Potassium (3.6-5.2) mmol/L Valproic Acid (50.0-100.0) ug/mL 05/31/18 05/31/18 05/31/18 Range/Units 23:55 21:06 20:45 WBC (4.8-10.8) K/uL RBC (4.40-5.90) Mil/uL Hgb (12.0-18.0) g/dL Hct (35.0-51.0) % MCV (80.0-94.0) fL MCH (27.0-31.0) pg MCHC (33.0-37.0) g/dL RDW (11.5-14.5) % Plt Count (130-400) K/uL MPV (7.2-11.7) fL Neut % (Auto) (50.0-75.0) % Lymph % (Auto) (20.0-40.0) % Donley % (Auto) (0.0-10.0) % Eos % (Auto) (0.0-4.0) % Baso % (Auto) (0.0-2.0) % Neut # (Auto) (1.8-7.0) K/uL Lymph # (Auto) (1.0-4.3) K/uL Donley # (Auto) (0.0-0.8) K/uL Eos # (Auto) (0.0-0.7) K/uL Baso # (Auto) (0.0-0.2) K/uL Neutrophils % (Manual) (50-75) % Band Neutrophils % (0-2) % Lymphocytes % (Manual) (20-40) % Monocytes % (Manual) (0-10) % Eosinophils % (Manual) (0-4) % Platelet Estimate (NORMAL) Large Platelets Polychromasia Hypochromasia (manual) Poikilocytosis (manual Anisocytosis (manual) Macrocytosis (manual) Ovalocytes Schistocytes Puncture Site pCO2 (35-45) mm/Hg pO2 (80-100) mm/Hg HCO3 (21-28) mmol/L ABG pH (7.35-7.45) ABG Total CO2 (22-28) mmol/L ABG O2 Saturation (95-98) % ABG Base Excess (-2.0-3.0) mmol/L Rush Test ABG Potassium (3.6-5.2) mmol/L A-a O2 Difference mm/Hg Respiratory Index Glucose (75-110) mg/dl Lactate (0.7-2.1) mmol/L Vent Mode Mechanical Rate FiO2 % Inspiratory BiPAP Expiratory BiPAP Sodium (132-148) mmol/L Potassium (3.6-5.2) mmol/L Chloride (98-107) mmol/L Carbon Dioxide (22-30) mmol/L Anion Gap (10-20) BUN (9-20) mg/dL Creatinine (0.8-1.5) mg/dL Est GFR ( Amer) Est GFR (Non-Af Amer) POC Glucose (mg/dL) 163 H 167 H (65-110) mg/dL Random Glucose (75-110) mg/dL Calcium (8.6-10.4) mg/dl Phosphorus (2.5-4.5) mg/dL Magnesium (1.6-2.3) mg/dL Total Bilirubin (0.2-1.3) mg/dL AST (17-59) U/L ALT (21-72) U/L Alkaline Phosphatase (38-126) U/L Total Protein (6.3-8.3) g/dL Albumin (3.5-5.0) g/dL Globulin (2.2-3.9) gm/dL Albumin/Globulin Ratio (1.0-2.1) Procalcitonin 21.83 H (0.19-0.49) NG/ML Arterial Blood Potassium (3.6-5.2) mmol/L Valproic Acid (50.0-100.0) ug/mL Laboratory Results - last 24 hr 05/31/18 05/31/18 05/31/18 20:45 21:06 23:55 WBC RBC Hgb Hct MCV MCH MCHC RDW Plt Count MPV Neut % (Auto) Lymph % (Auto) Donley % (Auto) Eos % (Auto) Baso % (Auto) Neut # (Auto) Lymph # (Auto) Donley # (Auto) Eos # (Auto) Baso # (Auto) Neutrophils % (Manual) Band Neutrophils % Lymphocytes % (Manual) Monocytes % (Manual) Eosinophils % (Manual) Platelet Estimate Large Platelets Polychromasia Hypochromasia (manual) Poikilocytosis (manual Anisocytosis (manual) Macrocytosis (manual) Ovalocytes Schistocytes Puncture Site pCO2 pO2 HCO3 ABG pH ABG Total CO2 ABG O2 Saturation ABG Base Excess Rush Test ABG Potassium A-a O2 Difference Respiratory Index Glucose Lactate Vent Mode Mechanical Rate FiO2 Inspiratory BiPAP Expiratory BiPAP Sodium Potassium Chloride Carbon Dioxide Anion Gap BUN Creatinine Est GFR ( Amer) Est GFR (Non-Af Amer) POC Glucose (mg/dL) 167 H 163 H Random Glucose Calcium Phosphorus Magnesium Total Bilirubin AST ALT Alkaline Phosphatase Total Protein Albumin Globulin Albumin/Globulin Ratio Procalcitonin 21.83 H Arterial Blood Potassium Valproic Acid 06/01/18 06/01/18 06/01/18 06:45 10:31 10:31 WBC 18.2 H RBC 3.12 L Hgb 9.5 L Hct 29.5 L MCV 94.6 H MCH 30.5 MCHC 32.2 L RDW 21.1 H Plt Count 242 MPV 9.9 Neut % (Auto) 85.5 H Lymph % (Auto) 6.5 L Donley % (Auto) 6.7 Eos % (Auto) 0.9 Baso % (Auto) 0.4 Neut # (Auto) 15.6 H Lymph # (Auto) 1.2 Donley # (Auto) 1.2 H Eos # (Auto) 0.2 Baso # (Auto) 0.1 Neutrophils % (Manual) 82 H Band Neutrophils % 2 Lymphocytes % (Manual) 8 L Monocytes % (Manual) 7 Eosinophils % (Manual) 1 Platelet Estimate Normal Large Platelets Present Polychromasia Slight Hypochromasia (manual) Slight Poikilocytosis (manual Slight Anisocytosis (manual) Moderate Macrocytosis (manual) Slight Ovalocytes Slight Schistocytes Slight Puncture Site pCO2 pO2 HCO3 ABG pH ABG Total CO2 ABG O2 Saturation ABG Base Excess Rush Test ABG Potassium A-a O2 Difference Respiratory Index Glucose Lactate Vent Mode Mechanical Rate FiO2 Inspiratory BiPAP Expiratory BiPAP Sodium 140 Potassium 3.7 Chloride 97 L Carbon Dioxide 28 Anion Gap 19 BUN 20 Creatinine 3.0 H Est GFR ( Amer) 29 Est GFR (Non-Af Amer) 24 POC Glucose (mg/dL) 180 H Random Glucose 172 H Calcium 9.5 Phosphorus 2.4 L Magnesium 2.1 Total Bilirubin 1.0 AST 25 ALT 18 L Alkaline Phosphatase 149 H Total Protein 7.2 Albumin 3.8 Globulin 3.4 Albumin/Globulin Ratio 1.1 Procalcitonin Arterial Blood Potassium Valproic Acid 06/01/18 06/01/18 06/01/18 10:31 11:17 12:40 WBC RBC Hgb Hct MCV MCH MCHC RDW Plt Count MPV Neut % (Auto) Lymph % (Auto) Donley % (Auto) Eos % (Auto) Baso % (Auto) Neut # (Auto) Lymph # (Auto) Donley # (Auto) Eos # (Auto) Baso # (Auto) Neutrophils % (Manual) Band Neutrophils % Lymphocytes % (Manual) Monocytes % (Manual) Eosinophils % (Manual) Platelet Estimate Large Platelets Polychromasia Hypochromasia (manual) Poikilocytosis (manual Anisocytosis (manual) Macrocytosis (manual) Ovalocytes Schistocytes Puncture Site Rba pCO2 45 pO2 96 HCO3 29.3 H ABG pH 7.44 ABG Total CO2 32.0 H ABG O2 Saturation 98.8 H ABG Base Excess 5.6 H Rush Test Na ABG Potassium 3.2 L A-a O2 Difference 276.0 Respiratory Index 2.9 Glucose 186 H Lactate 1.1 Vent Mode Bipap Mechanical Rate 12 FiO2 60.0 Inspiratory BiPAP 12 Expiratory BiPAP 6 Sodium 138.0 Potassium Chloride 105.0 Carbon Dioxide Anion Gap BUN Creatinine Est GFR ( Amer) Est GFR (Non-Af Amer) POC Glucose (mg/dL) 191 H Random Glucose Calcium Phosphorus Magnesium Total Bilirubin AST ALT Alkaline Phosphatase Total Protein Albumin Globulin Albumin/Globulin Ratio Procalcitonin Arterial Blood Potassium 3.2 L Valproic Acid < 10.0 L EKG/Cardiology Studies: Cardiology / EKG Studies 06/01/18 09:37 ELECTROCARDIOGRAM Stat Comment: Mode Of Transportation: Reason For Exam: assess QTc and for poss Aflutter Critical Care Progress Note - Nutrition Nutrition: Nutrition Category Date Time Status NPO Diet [DIET] Diets 06/01/18 Breakfast Active Attending/Attestation - Attestation I have personally seen and examined this patient.: Yes I have fully participated in the care of the patient.: Yes I have reviewed all pertinent clinical information: Yes Notes (Text): 06/01/18 17:18 Patient's sob improved, fio2 requirement form 100 to 60% post hd, BP improved after meds resumed, h/o PAF will start eliquis, he on empiric abx considering dd of multilobar pna. DM, htn, ESRD on hd, s/p b/ aka, h/o paf will start eliquis, h/o seizure on keppra and valproic acid, h/o chf, h/o CABG, h/o HIT see orders for detail. 06/01/18 17:26 <Steve Martino - Last Filed: 06/01/18 21:17> CCU Subjective - Physician Review Subjective (Free Text): 06/01/18 20:58 Seen and examined in ICU. Still somnolent but more arousable, answering questions appropriately, asking for pain meds. Additional home meds added to regimen as confirmed by patient, including Coreg and Keppra. Resp status appears improved overall. CCU Objective - Vital Signs / Intake & Output Vital Signs (Last 4 hours): Vital Signs Temp Pulse Resp BP Pulse Ox 06/01/18 06:03 170/81 H 06/01/18 06:00 88 22 94 L 06/01/18 05:43 173/86 H 06/01/18 05:03 94 H 17 94 L 06/01/18 04:39 168/79 H 06/01/18 04:30 98.5 F 82 22 94 L 06/01/18 04:04 80 20 149/71 92 L Intake and Output (Last 8hrs): Intake & Output 05/31/18 06/01/18 06/01/18 22:59 06:59 14:59 Intake Total 310 50 Output Total 0 0 Balance 310 50 Weight 63.63 kg Intake: Intake, IV Amount 250 50 Left upper arm 250 50 Right Proximal Port Port- 0 A-Cath Oral 60 0 Output: Urine 0 0 Urine, Voided 0 0 Stool 0 Emesis 0 Other: # Bowel Movements 0 0 - Physical Exam Head: Positive for: Atraumatic, Normocephalic Pupils: Negative for: Non-Reactive, Pinpoint Extroacular Muscles: Positive for: EOMI Conjunctiva: Positive for: Normal. Negative for: Injected, Icteric Mouth: Positive for: Moist Mucous Membranes Nose (External): Positive for: Atraumatic. Negative for: Abrasion, Contusion, Laceration Neck: Positive for: Normal Range of Motion, Trachea Midline. Negative for: JVD Respiratory/Chest: Positive for: Good Air Exchange, Rales (diffuse but improved rales in all davis), Other (on Bipap). Negative for: Respiratory Distress, Wheezes, Rhonchi Cardiovascular: Positive for: Normal S1, S2, Peripheal Pulses Present (+2 radials, bilateral BKA so unable to palpate pedal pulses), Tachycardic, Other (tachy in 100's, intermittent episodes of 4-8 beat runs of VTach). Negative for: Regular Rate and Rhythm, Murmurs, Bradycardic Abdomen: Positive for: Normal Bowel Sounds. Negative for: Tenderness, Distention Upper Extremity: Positive for: Normal Inspection, Normal ROM, NORMAL PULSES. Negative for: Cyanosis, Edema Lower Extremity: Positive for: Edema, Deformity (bilateral BKA, well healed stumps). Negative for: Normal Inspection, Tenderness Neurological: Positive for: GCS=15, Speech Normal Skin: Positive for: Warm, Dry, Normal Color. Negative for: Rashes Other physical findings (Free Text): somnolent but arousable, awake and alert when aroused - Medications Active Medications: Active Medications Generic Name Dose Route Start Last Admin Trade Name Freq PRN Reason Stop Dose Admin Amiodarone HCl 200 mg 05/31/18 14:45 05/31/18 17:32 Cordarone PO 200 mg DAILY [facility] Administration Aspirin 81 mg 05/31/18 14:45 05/31/18 17:32 Aspirin Chewable PO 81 mg DAILY [facility] Administration Diltiazem HCl 30 mg 05/31/18 18:00 05/31/18 22:21 Cardizem PO 30 mg QID [facility] Administration Piperacillin Sod/Tazobactam Sod 2.25 gm in 50 mls @ 100 mls/hr 05/31/18 20:00 06/01/18 04:31 Zosyn 2.25 Gm Iv Premix IVPB 100 mls/hr Q8H [facility] Administration Protocol Losartan Potassium 100 mg 05/31/18 14:45 05/31/18 17:32 Cozaar PO 100 mg DAILY [facility] Administration Pantoprazole Sodium 20 mg 06/01/18 10:00 Protonix Ec Tab PO DAILY [facility] Rosuvastatin Calcium 10 mg 05/31/18 22:00 05/31/18 22:21 Crestor PO 10 mg HS [facility] Administration - Patient Studies Lab Studies: Lab Studies 05/31/18 05/31/18 05/31/18 Range/Units 23:55 20:45 13:21 WBC (4.8-10.8) K/uL RBC (4.40-5.90) Mil/uL Hgb (12.0-18.0) g/dL Hct (35.0-51.0) % MCV (80.0-94.0) fL MCH (27.0-31.0) pg MCHC (33.0-37.0) g/dL RDW (11.5-14.5) % Plt Count (130-400) K/uL MPV (7.2-11.7) fL Neut % (Auto) (50.0-75.0) % Lymph % (Auto) (20.0-40.0) % Donley % (Auto) (0.0-10.0) % Eos % (Auto) (0.0-4.0) % Baso % (Auto) (0.0-2.0) % Neut # (Auto) (1.8-7.0) K/uL Lymph # (Auto) (1.0-4.3) K/uL Donley # (Auto) (0.0-0.8) K/uL Eos # (Auto) (0.0-0.7) K/uL Baso # (Auto) (0.0-0.2) K/uL Neutrophils % (Manual) (50-75) % Band Neutrophils % (0-2) % Lymphocytes % (Manual) (20-40) % Monocytes % (Manual) (0-10) % Platelet Estimate (NORMAL) Polychromasia Hypochromasia (manual) Poikilocytosis (manual Anisocytosis (manual) Microcytosis (manual) Macrocytosis (manual) Ovalocytes PT (9.7-12.2) SECONDS INR APTT (21-34) SECONDS Puncture Site pCO2 (35-45) mm/Hg pO2 (80-100) mm/Hg HCO3 (21-28) mmol/L ABG pH (7.35-7.45) ABG Total CO2 (22-28) mmol/L ABG O2 Saturation (95-98) % ABG Base Excess (-2.0-3.0) mmol/L Rush Test ABG Potassium (3.6-5.2) mmol/L A-a O2 Difference mm/Hg Respiratory Index Glucose (75-110) mg/dl Lactate (0.7-2.1) mmol/L Vent Mode FiO2 % Inspiratory BiPAP Expiratory BiPAP Sodium (132-148) mmol/L Potassium (3.6-5.2) mmol/L Chloride (98-107) mmol/L Carbon Dioxide (22-30) mmol/L Anion Gap (10-20) BUN (9-20) mg/dL Creatinine (0.8-1.5) mg/dL Est GFR ( Amer) Est GFR (Non-Af Amer) POC Glucose (mg/dL) 163 H 167 H 291 H (65-110) mg/dL Random Glucose (75-110) mg/dL Calcium (8.6-10.4) mg/dl Phosphorus (2.5-4.5) mg/dL Magnesium (1.6-2.3) mg/dL Total Bilirubin (0.2-1.3) mg/dL AST (17-59) U/L ALT (21-72) U/L Alkaline Phosphatase (38-126) U/L Troponin I (0.00-0.120) ng/mL NT-Pro-B Natriuret Pep (0-450) pg/mL Total Protein (6.3-8.3) g/dL Albumin (3.5-5.0) g/dL Globulin (2.2-3.9) gm/dL Albumin/Globulin Ratio (1.0-2.1) Arterial Blood Potassium (3.6-5.2) mmol/L 05/31/18 05/31/18 05/31/18 Range/Units 12:13 12:05 11:34 WBC (4.8-10.8) K/uL RBC (4.40-5.90) Mil/uL Hgb (12.0-18.0) g/dL Hct (35.0-51.0) % MCV (80.0-94.0) fL MCH (27.0-31.0) pg MCHC (33.0-37.0) g/dL RDW (11.5-14.5) % Plt Count (130-400) K/uL MPV (7.2-11.7) fL Neut % (Auto) (50.0-75.0) % Lymph % (Auto) (20.0-40.0) % Donley % (Auto) (0.0-10.0) % Eos % (Auto) (0.0-4.0) % Baso % (Auto) (0.0-2.0) % Neut # (Auto) (1.8-7.0) K/uL Lymph # (Auto) (1.0-4.3) K/uL Donley # (Auto) (0.0-0.8) K/uL Eos # (Auto) (0.0-0.7) K/uL Baso # (Auto) (0.0-0.2) K/uL Neutrophils % (Manual) (50-75) % Band Neutrophils % (0-2) % Lymphocytes % (Manual) (20-40) % Monocytes % (Manual) (0-10) % Platelet Estimate (NORMAL) Polychromasia Hypochromasia (manual) Poikilocytosis (manual Anisocytosis (manual) Microcytosis (manual) Macrocytosis (manual) Ovalocytes PT (9.7-12.2) SECONDS INR APTT (21-34) SECONDS Puncture Site Left radial pCO2 46 H (35-45) mm/Hg pO2 85 (80-100) mm/Hg HCO3 27.2 (21-28) mmol/L ABG pH 7.40 (7.35-7.45) ABG Total CO2 29.9 H (22-28) mmol/L ABG O2 Saturation 98.5 H (95-98) % ABG Base Excess 3.0 (-2.0-3.0) mmol/L Rush Test Ye ABG Potassium 3.1 L (3.6-5.2) mmol/L A-a O2 Difference 571.0 mm/Hg Respiratory Index 6.7 Glucose 278 H (75-110) mg/dl Lactate 1.8 (0.7-2.1) mmol/L Vent Mode Bipap FiO2 100.0 % Inspiratory BiPAP 12 Expiratory BiPAP 6 Sodium 140.0 138 (132-148) mmol/L Potassium 3.7 (3.6-5.2) mmol/L Chloride 103.0 97 L (98-107) mmol/L Carbon Dioxide 27 (22-30) mmol/L Anion Gap 18 (10-20) BUN 32 H (9-20) mg/dL Creatinine 4.5 H (0.8-1.5) mg/dL Est GFR ( Amer) 18 Est GFR (Non-Af Amer) 15 POC Glucose (mg/dL) 289 H (65-110) mg/dL Random Glucose 266 H (75-110) mg/dL Calcium 9.3 (8.6-10.4) mg/dl Phosphorus 2.8 (2.5-4.5) mg/dL Magnesium 2.0 (1.6-2.3) mg/dL Total Bilirubin 0.6 (0.2-1.3) mg/dL AST 19 (17-59) U/L ALT 18 L (21-72) U/L Alkaline Phosphatase 178 H (38-126) U/L Troponin I 0.0840 (0.00-0.120) ng/mL NT-Pro-B Natriuret Pep [id number] H (0-450) pg/mL Total Protein 7.4 (6.3-8.3) g/dL Albumin 3.9 (3.5-5.0) g/dL Globulin 3.5 (2.2-3.9) gm/dL Albumin/Globulin Ratio 1.1 (1.0-2.1) Arterial Blood Potassium 3.1 L (3.6-5.2) mmol/L 05/31/18 05/31/18 Range/Units 11:34 11:34 WBC 17.0 H D (4.8-10.8) K/uL RBC 3.36 L (4.40-5.90) Mil/uL Hgb 9.9 L (12.0-18.0) g/dL Hct 31.7 L (35.0-51.0) % MCV 94.5 H D (80.0-94.0) fL MCH 29.6 (27.0-31.0) pg MCHC 31.3 L (33.0-37.0) g/dL RDW 20.1 H (11.5-14.5) % Plt Count 273 (130-400) K/uL MPV 9.5 (7.2-11.7) fL Neut % (Auto) 88.7 H (50.0-75.0) % Lymph % (Auto) 5.7 L (20.0-40.0) % Donley % (Auto) 4.9 (0.0-10.0) % Eos % (Auto) 0.2 (0.0-4.0) % Baso % (Auto) 0.5 (0.0-2.0) % Neut # (Auto) 15.1 H (1.8-7.0) K/uL Lymph # (Auto) 1.0 (1.0-4.3) K/uL Donley # (Auto) 0.8 (0.0-0.8) K/uL Eos # (Auto) 0.0 (0.0-0.7) K/uL Baso # (Auto) 0.1 (0.0-0.2) K/uL Neutrophils % (Manual) 89 H (50-75) % Band Neutrophils % 1 (0-2) % Lymphocytes % (Manual) 8 L (20-40) % Monocytes % (Manual) 2 (0-10) % Platelet Estimate Normal (NORMAL) Polychromasia Slight Hypochromasia (manual) Slight Poikilocytosis (manual Slight Anisocytosis (manual) Moderate Microcytosis (manual) Slight Macrocytosis (manual) Slight Ovalocytes Slight PT 15.0 H (9.7-12.2) SECONDS INR 1.4 APTT 210 H* (21-34) SECONDS Puncture Site pCO2 (35-45) mm/Hg pO2 (80-100) mm/Hg HCO3 (21-28) mmol/L ABG pH (7.35-7.45) ABG Total CO2 (22-28) mmol/L ABG O2 Saturation (95-98) % ABG Base Excess (-2.0-3.0) mmol/L Rush Test ABG Potassium (3.6-5.2) mmol/L A-a O2 Difference mm/Hg Respiratory Index Glucose (75-110) mg/dl Lactate (0.7-2.1) mmol/L Vent Mode FiO2 % Inspiratory BiPAP Expiratory BiPAP Sodium (132-148) mmol/L Potassium (3.6-5.2) mmol/L Chloride (98-107) mmol/L Carbon Dioxide (22-30) mmol/L Anion Gap (10-20) BUN (9-20) mg/dL Creatinine (0.8-1.5) mg/dL Est GFR ( Amer) Est GFR (Non-Af Amer) POC Glucose (mg/dL) (65-110) mg/dL Random Glucose (75-110) mg/dL Calcium (8.6-10.4) mg/dl Phosphorus (2.5-4.5) mg/dL Magnesium (1.6-2.3) mg/dL Total Bilirubin (0.2-1.3) mg/dL AST (17-59) U/L ALT (21-72) U/L Alkaline Phosphatase (38-126) U/L Troponin I (0.00-0.120) ng/mL NT-Pro-B Natriuret Pep (0-450) pg/mL Total Protein (6.3-8.3) g/dL Albumin (3.5-5.0) g/dL Globulin (2.2-3.9) gm/dL Albumin/Globulin Ratio (1.0-2.1) Arterial Blood Potassium (3.6-5.2) mmol/L Laboratory Results - last 24 hr 05/31/18 05/31/18 05/31/18 11:34 11:34 11:34 WBC 17.0 H D RBC 3.36 L Hgb 9.9 L Hct 31.7 L MCV 94.5 H D MCH 29.6 MCHC 31.3 L RDW 20.1 H Plt Count 273 MPV 9.5 Neut % (Auto) 88.7 H Lymph % (Auto) 5.7 L Donley % (Auto) 4.9 Eos % (Auto) 0.2 Baso % (Auto) 0.5 Neut # (Auto) 15.1 H Lymph # (Auto) 1.0 Donley # (Auto) 0.8 Eos # (Auto) 0.0 Baso # (Auto) 0.1 Neutrophils % (Manual) 89 H Band Neutrophils % 1 Lymphocytes % (Manual) 8 L Monocytes % (Manual) 2 Platelet Estimate Normal Polychromasia Slight Hypochromasia (manual) Slight Poikilocytosis (manual Slight Anisocytosis (manual) Moderate Microcytosis (manual) Slight Macrocytosis (manual) Slight Ovalocytes Slight PT 15.0 H INR 1.4 APTT 210 H* Puncture Site pCO2 pO2 HCO3 ABG pH ABG Total CO2 ABG O2 Saturation ABG Base Excess Rush Test ABG Potassium A-a O2 Difference Respiratory Index Glucose Lactate Vent Mode FiO2 Inspiratory BiPAP Expiratory BiPAP Sodium 138 Potassium 3.7 Chloride 97 L Carbon Dioxide 27 Anion Gap 18 BUN 32 H Creatinine 4.5 H Est GFR ( Amer) 18 Est GFR (Non-Af Amer) 15 POC Glucose (mg/dL) Random Glucose 266 H Calcium 9.3 Phosphorus 2.8 Magnesium 2.0 Total Bilirubin 0.6 AST 19 ALT 18 L Alkaline Phosphatase 178 H Troponin I 0.0840 NT-Pro-B Natriuret Pep [id number] H Total Protein 7.4 Albumin 3.9 Globulin 3.5 Albumin/Globulin Ratio 1.1 Arterial Blood Potassium 05/31/18 05/31/18 05/31/18 12:05 12:13 13:21 WBC RBC Hgb Hct MCV MCH MCHC RDW Plt Count MPV Neut % (Auto) Lymph % (Auto) Donley % (Auto) Eos % (Auto) Baso % (Auto) Neut # (Auto) Lymph # (Auto) [place]ley # (Auto) Eos # (Auto) Baso # (Auto) Neutrophils % (Manual) Band Neutrophils % Lymphocytes % (Manual) Monocytes % (Manual) Platelet Estimate Polychromasia Hypochromasia (manual) Poikilocytosis (manual Anisocytosis (manual) Microcytosis (manual) Macrocytosis (manual) Ovalocytes PT INR APTT Puncture Site Left radial pCO2 46 H pO2 85 HCO3 27.2 ABG pH 7.40 ABG Total CO2 29.9 H ABG O2 Saturation 98.5 H ABG Base Excess 3.0 Rush Test Ye ABG Potassium 3.1 L A-a O2 Difference 571.0 Respiratory Index 6.7 Glucose 278 H Lactate 1.8 Vent Mode Bipap FiO2 100.0 Inspiratory BiPAP 12 Expiratory BiPAP 6 Sodium 140.0 Potassium Chloride 103.0 Carbon Dioxide Anion Gap BUN Creatinine Est GFR ( Amer) Est GFR (Non-Af Amer) POC Glucose (mg/dL) 289 H 291 H Random Glucose Calcium Phosphorus Magnesium Total Bilirubin AST ALT Alkaline Phosphatase Troponin I NT-Pro-B Natriuret Pep Total Protein Albumin Globulin Albumin/Globulin Ratio Arterial Blood Potassium 3.1 L 05/31/18 05/31/18 20:45 23:55 WBC RBC Hgb Hct MCV MCH MCHC RDW Plt Count MPV Neut % (Auto) Lymph % (Auto) [place] % (Auto) Eos % (Auto) Baso % (Auto) Neut # (Auto) Lymph # (Auto) [place] # (Auto) Eos # (Auto) Baso # (Auto) Neutrophils % (Manual) Band Neutrophils % Lymphocytes % (Manual) Monocytes % (Manual) Platelet Estimate Polychromasia Hypochromasia (manual) Poikilocytosis (manual Anisocytosis (manual) Microcytosis (manual) Macrocytosis (manual) Ovalocytes PT INR APTT Puncture Site pCO2 pO2 HCO3 ABG pH ABG Total CO2 ABG O2 Saturation ABG Base Excess Rush Test ABG Potassium A-a O2 Difference Respiratory Index Glucose Lactate Vent Mode FiO2 Inspiratory BiPAP Expiratory BiPAP Sodium Potassium Chloride Carbon Dioxide Anion Gap BUN Creatinine Est GFR ( Amer) Est GFR (Non-Af Amer) POC Glucose (mg/dL) 167 H 163 H Random Glucose Calcium Phosphorus Magnesium Total Bilirubin AST ALT Alkaline Phosphatase Troponin I NT-Pro-B Natriuret Pep Total Protein Albumin Globulin Albumin/Globulin Ratio Arterial Blood Potassium EKG/Cardiology Studies: Cardiology / EKG Studies 05/31/18 10:55 ELECTROCARDIOGRAM Stat Comment: Mode Of Transportation: BED Reason For Exam: chest pain 05/31/18 12:45 EKG [ELECTROCARDIOGRAM] Stat Comment: Mode Of Transportation: Reason For Exam: repeat EKG Fingerstick Blood Sugar Results: 163 Review of Systems - Review of Systems All systems: reviewed and no additional remarkable complaints except (as per subjective) Critical Care Progress Note - Nutrition Nutrition: Nutrition Category Date Time Status NPO Diet [DIET] Diets 06/01/18 Breakfast Active Assessment/Plan - Assessment and Plan (Free Text) Assessment: This is a 37 yo transgender (M -> F) with notable PMH of ESRD on HD (//Sat) via permacath, bilateral BKA, chronic anemia, DM, HTN, CAD s/p CABG, diastolic CHF, paroxysmal Aflutter/Afib, and hx HIT who presented today with complaint of SOB and chronic chest pain, likely 2/2 missed HD. Admitted to ICU for pending HD and concerns in ED for possible VTach. Improved respiratory status today, pending another round of HD tmr as per Nephro. Plan: Neuro: -more awake and alert today -will continue home dose of opioids once confirmed by PMD, to prevent withdrawal, but avoid any additional due to concerns for sedating and respirat ory suppression -maintain normothermia -aspiration precautions Pulm: -CXR obtained in ED, highly concerning for fluid overload/pulm edema, also possible aspiration; improved CXR today s/p HD -Satting well on Bipap, continue, pending repeat ABG today -WBCs 18.2, PNA vs stress elevation 2/2 respiratory distress, empirically covering with Vanc/Zosyn -Procal elevated at 21.83, blood cx negative at 24 hrs Cardio: -s/p HD, pending another round tomorrow -HTN, SBP 180's this AM, continue home losartan, coreg/amlodipine/Imdur -Cardio consulted, appreciate all recs; SVT with aberrancy, not VTach in ED -Continue ASA 81mg, Statin, Home PO diltiazem and amiodarone. GI: -NPO due to lethargy and Bipap, increased risk of aspirations, jeff with concern for possible aspiration prior to arrival -Protonix for GI ppx Renal: -ESRD on HD, missed last session prior to presentation, common presentation for this patient Underwent HD yesterday, to undergo again tomorrow, then resume TThSat schedule as per Nephro -K wnl (3.7) on labs again today -Monitor electrolytes, but defer repletions unless critically low due to ESRD -Nephro consulted, appreciate all recs Heme: -Hgb 9.5, baseline per prior charting appears to be 8-11 -borderline macrocytic with noticeably wide RDW, anemia of chronic disease +/- nutritional component -no need for transfusions at this time, monitor -hx of HIT, heparin contraindicated for DVT ppx, and hx BKA, so unable to wear SCDs ID: -Leukocytosis of 18.2, but afebrile -stress reaction from resp distress vs PNA, concern for aspiration PNA so need anaerobic coverage -Vanco and Zosyn empirically, cultures negative x2 at 24 hrs, Procal elevated at 21.83 Dispo: ICU, remains on bipap, s/p HD yesterday, pending again tmr FEN: NPO Access: Peripheral IVs, permacath (for HD) Consults: Cardio, Nephro, ICU Ppx: Protonix for GI, contraindications for DVT ppx (Hx HIT, so heparin contraindicated, and BKA, so cannot wear SCDs) Code Status: Unknown, so FULL by default Seen, reviewed, and discussed with attending, Dr. Valle
[2018-06-01] MEDS ORDERED: HYDROmorphone 0.5 mg/0.5 ml ISec IVP ONE (09:38)
[2018-06-01] MEDS: Pantoprazole 20 mg EC Tab PO SCH (09:41)
[2018-06-01] MEDS ORDERED: Pantoprazole 20 mg EC Tab PO SCH (10:00)
[2018-06-01 10:45] LABS: BASO # 0.1 K/uL (0.0-0.2); BASO % 0.4 % (0.0-2.0); EOS # 0.2 K/uL (0.0-0.7); EOS % 0.9 % (0.0-4.0); HEMOGLOBIN 9.5 g/dL (12.0-18.0); LYMPH # 1.2 K/uL (1.0-4.3); LYMPH % 6.5 % (20.0-40.0); MEAN CELL VOLUME 94.6 fL (80.0-94.0); MEAN CORPUSCULAR HEMOGLOBIN 30.5 pg (27.0-31.0); MEAN CORPUSCULAR HGB CONC 32.2 g/dL (33.0-37.0); MEAN PLATELET VOLUME 9.9 fL (7.2-11.7); MONO # 1.2 K/uL (0.0-0.8); MONO % 6.7 % (0.0-10.0); NEUT # 15.6 K/uL (1.8-7.0); NEUT % 85.5 % (50.0-75.0); PLATELET COUNT 242 K/uL (130-400); RBC 3.12 Mil/uL (4.40-5.90); RED CELL DISTRIBUTION WIDTH 21.1 % (11.5-14.5); WHITE BLOOD COUNT 18.2 K/uL (4.8-10.8)
[2018-06-01 11:08] LABS: ALB/GLOB RATIO 1.1 (1.0-2.1); ALBUMIN 3.8 g/dL (3.5-5.0); CALCIUM 9.5 mg/dl (8.6-10.4)
[2018-06-01 11:20] LABS: ANISOCYTOSIS MODERATE; BANDS 2 % (0-2); EOSINOPHIL 1 % (0-4); LYMPHOCYTE 8 % (20-40); MONOCYTE 7 % (0-10); NEUTROPHIL 82 % (50-75); PLATELET ESTIMATE NORMAL (NORMAL); TOTAL CELLS COUNTED 100
[2018-06-01 11:21] LABS: HYPOCHROMIC SLIGHT; OVALOCYTES SLIGHT; POIKILOCYTOSIS SLIGHT; POLYCHROMIC SLIGHT; SCHISTOCYTES SLIGHT
[2018-06-01 11:22] LABS: LARGE PLATELETS PRESENT
--- NOTE | 2018-06-01 11:38 | CP.PCM.PN ---
Subjective - Date & Time of Evaluation Date of Evaluation: 06/01/18 Time of Evaluation: 11:35 - Subjective Subjective: doesnot feel good c/o pain back hips chest sob and palpitation Objective - Vital Signs/Intake and Output Vital Signs (last 24 hours): Temp Pulse Resp BP Pulse Ox 98.5 F 97 H 24 189/100 H 95 06/01/18 04:30 06/01/18 08:38 06/01/18 07:00 06/01/18 07:03 06/01/18 07:00 Intake and Output: 06/01/18 06/01/18 06:59 18:59 Intake Total 360 0 Output Total 0 0 Balance 360 0 - Medications Medications: Current Medications Amiodarone HCl (Cordarone) 200 mg PO DAILY [facility] Last Admin: 06/01/18 09:41 Dose: 200 mg Amlodipine Besylate (Norvasc) 10 mg PO DAILY [facility] Aspirin (Aspirin Chewable) 81 mg PO DAILY [facility] Last Admin: 06/01/18 09:41 Dose: 81 mg Calcitriol (Rocaltrol) 0.25 mcg PO TTS [facility] Carvedilol (Coreg) 12.5 mg PO BID [facility] Clopidogrel Bisulfate (Plavix) 75 mg PO DAILY [facility] Last Admin: 06/01/18 09:43 Dose: 75 mg Diltiazem HCl (Cardizem) 30 mg PO QID [facility] Last Admin: 06/01/18 09:41 Dose: 30 mg Docusate Sodium (Colace) 100 mg PO BID PRN PRN Reason: Constipation Hydromorphone HCl (Dilaudid) 2 mg PO Q6H PRN PRN Reason: Pain, moderate (4-7) Piperacillin Sod/Tazobactam Sod (Zosyn 2.25 Gm Iv Premix) 2.25 gm in 50 mls @ 100 mls/hr IVPB Q8H [facility]; Protocol Last Admin: 06/01/18 04:31 Dose: 100 mls/hr Isosorbide Mononitrate (Imdur) 60 mg PO DAILY [facility] Last Admin: 06/01/18 09:42 Dose: 60 mg Losartan Potassium (Cozaar) 100 mg PO DAILY [facility] Last Admin: 06/01/18 09:41 Dose: 100 mg Montelukast Sodium (Singulair) 10 mg PO HS [facility] Pantoprazole Sodium (Protonix Ec Tab) 20 mg PO DAILY [facility] Last Admin: 06/01/18 09:41 Dose: 20 mg Rosuvastatin Calcium (Crestor) 10 mg PO HS [facility] Last Admin: 05/31/18 22:21 Dose: 10 mg Vitamin B Complex/Vit C/Folic Acid (Nephro-Courtney) 1 tab PO 0800 [facility] - Labs Labs: 06/01/18 10:31 06/01/18 10:31 PT 15.0 SECONDS (9.7-12.2) H 05/31/18 11:34 INR 1.4 05/31/18 11:34 APTT 210 SECONDS (21-34) H* 05/31/18 11:34 - Constitutional Appears: In Acute Distress - Head Exam Head Exam: ATRAUMATIC - Eye Exam Eye Exam: Conjunctival injection - ENT Exam ENT Exam: Mucous Membranes Moist - Neck Exam Neck Exam: Normal Inspection - Respiratory Exam Respiratory Exam: Decreased Breath Sounds, Rales - Cardiovascular Exam Cardiovascular Exam: Tachycardia - GI/Abdominal Exam GI & Abdominal Exam: Soft, Tenderness - Extremities Exam Additional comments: bilat amputation - Neurological Exam Neurological Exam: Oriented x3 - Psychiatric Exam Psychiatric exam: Depressed - Skin Skin Exam: Pallor Assessment and Plan - Assessment and Plan (Free Text) Assessment: ac chf ac arrythmia cad copd esrf dm back pain possible bilateral pnumonia Plan: cont icu orders
--- NOTE | 2018-06-01 11:48 | CP.PCM.PN ---
Subjective - Date & Time of Evaluation Date of Evaluation: 06/01/18 Time of Evaluation: 11:47 - Subjective Subjective: Nephrology Consultation Note: Assessment:critical HTN emergency with Pulmonary edema , fluid overload acute respi failure chronic chest pain, A flutter Diabetic chronic Kidney Disease (E11.22) Hypertensive Chronic Kidney Disease (I12.0) End stage renal disease (N18.6) dependence on hemodialysis (Z99.2) (TTS) via AVF Anemia (D64.9), Hyperphosphatemia (E83.39), Secondary Hyperparathyroidism (E21.1), HTN (I12.0) CAD s/p CABG, diastolic CHF, parox A flutter/fib, intra-cardiac thrombus, hx of Heparin induced thrombocytopenia, hx of seizure, blindness Plan: extra HD tomorrow. also plan for dialysis saturday as per TTS schedule Continue with Nephrovite 1 tab/day. BP high hence no HANNAH with HD for now. anticipate BP better controlled post HD Continue with phos binders home dose BP control with meds as ordered. Glycemic control, Dialysis consistent diet Further work up/management as per primary team Dose meds/antibiotics for ESRD status. Avoid fleets enema/magnesium based laxatives. Thanks for allowing me to participate in care of your patient. Will follow vladimir forte with you. Please call if any Qs. had d/w team Dr Eric Temple Office: [phone] CC: chest pain, SOB reason for consult: ESRD HPI: Pt is a 37 y/o transgender with hx of ESRD on hemodialysis (TTS) via permacath, chronic anemia, hyperphosphatemia, secondary hyperparathyroidism, Diabetes Mellitus, hypertension, CAD s/p CABG, diastolic CHF, pA flutter/fib, intra-cardiac thrombus, Heparin induced thrombocytopenia in past presented with complaints of SOB and chronic chest pain, he was admitted to ICU due to HTN emergency with pulm edema ROS: All other negative except as in HPI. now better improved chronic chest pain, no GI symptoms. has SOB but better. Physical Examination: General Appearance: in no acute respiratory distress, co-operative .on BiPAP better appearing Vitals reviewed and noted as below Head; Atraumatic, normocephalic ENT: no ulcers no thrush. Tongue is midline. Oropharynx: no rash or ulcers. EYES: Pt is blind both eyes Neck; supple no lymphadenopathy, no thyromegaly or bruit Lungs: Improved respiratory rate/effort. Breath sounds bilateral decreased at b ases with crackles Heart: Normal rate. s1s2 normal. No rub or gallop. Extremities: no edema. No varicose veins. has b/l BKA. Neurological: Patient is awake follow commands no focal deficit Skin: Warm and dry. Normal turgor. No rash. Palpitation: Normal elasticity for age Abdomen: Abdomen is soft. Bowel sounds +. There is no abdominal tenderness, no guarding/rigidity or organomegaly Psych: limited insight and has normal affect/mood MSK: no joint tenderness or swelling. Digits and nails normal, no deformity : kidney or bladder not palpable Access: permacath Labs/imaging reviewed. Past medical history, past surgical history, family history, social history, allergy reviewed and noted as below Family Hx: no hx of CKD. Non contributory Objective - Vital Signs/Intake and Output Vital Signs (last 24 hours): Temp Pulse Resp BP Pulse Ox 98.5 F 97 H 24 189/100 H 95 06/01/18 04:30 06/01/18 08:38 06/01/18 07:00 06/01/18 07:03 06/01/18 07:00 Intake and Output: 06/01/18 06/01/18 06:59 18:59 Intake Total 360 0 Output Total 0 0 Balance 360 0 - Medications Medications: Current Medications Amiodarone HCl (Cordarone) 200 mg PO DAILY [facility] Last Admin: 06/01/18 09:41 Dose: 200 mg Amlodipine Besylate (Norvasc) 10 mg PO DAILY [facility] Aspirin (Aspirin Chewable) 81 mg PO DAILY [facility] Last Admin: 06/01/18 09:41 Dose: 81 mg Calcitriol (Rocaltrol) 0.25 mcg PO TTS [facility] Carvedilol (Coreg) 12.5 mg PO BID [facility] Clopidogrel Bisulfate (Plavix) 75 mg PO DAILY [facility] Last Admin: 06/01/18 09:43 Dose: 75 mg Diltiazem HCl (Cardizem) 30 mg PO QID [facility] Last Admin: 06/01/18 09:41 Dose: 30 mg Docusate Sodium (Colace) 100 mg PO BID PRN PRN Reason: Constipation Hydromorphone HCl (Dilaudid) 2 mg PO Q6H PRN PRN Reason: Pain, moderate (4-7) Piperacillin Sod/Tazobactam Sod (Zosyn 2.25 Gm Iv Premix) 2.25 gm in 50 mls @ 100 mls/hr IVPB Q8H [facility]; Protocol Last Admin: 06/01/18 04:31 Dose: 100 mls/hr Isosorbide Mononitrate (Imdur) 60 mg PO DAILY [facility] Last Admin: 06/01/18 09:42 Dose: 60 mg Losartan Potassium (Cozaar) 100 mg PO DAILY [facility] Last Admin: 06/01/18 09:41 Dose: 100 mg Montelukast Sodium (Singulair) 10 mg PO HS [facility] Pantoprazole Sodium (Protonix Ec Tab) 20 mg PO DAILY [facility] Last Admin: 06/01/18 09:41 Dose: 20 mg Rosuvastatin Calcium (Crestor) 10 mg PO HS [facility] Last Admin: 05/31/18 22:21 Dose: 10 mg Vitamin B Complex/Vit C/Folic Acid (Nephro-Courtney) 1 tab PO 0800 [facility] - Labs Labs: 06/01/18 10:31 06/01/18 10:31 PT 15.0 SECONDS (9.7-12.2) H 05/31/18 11:34 INR 1.4 05/31/18 11:34 APTT 210 SECONDS (21-34) H* 05/31/18 11:34
--- NOTE | 2018-06-01 12:34 | RAD ---
Date of service: 06/01/2018 HISTORY: dx. Pulmaonary Edema, exac. of CHF COMPARISON: No prior. FINDINGS: Stable right IJ venous catheter with tip in the SVC/RA junction unchanged LUNGS: Pulmonary venous congestive changes with patchy bilateral infiltrates. PLEURA: No significant pleural effusion identified, no pneumothorax apparent. CARDIOVASCULAR: Cardiomegaly and sternotomy wires again noted. OSSEOUS STRUCTURES: No significant abnormalities. VISUALIZED UPPER ABDOMEN: Normal. OTHER FINDINGS: None. IMPRESSION: Pulmonary venous congestive changes with patchy bilateral infiltrates. Cardiomegaly.
[2018-06-01 12:46] LABS: ARTERIAL BLOOD GAS HCO3 29.3 mmol/L (21-28); ARTERIAL BLOOD GAS O2 SAT 98.8 % (95-98); ARTERIAL BLOOD GAS PCO2 45 mm/Hg (35-45); ARTERIAL BLOOD GAS PH 7.44 (7.35-7.45); ARTERIAL BLOOD GAS PO2 96 mm/Hg (80-100)
[2018-06-01] MEDS: HYDROmorphone 1 mg/ml ISec IVP PRN ×3 (13:45→22:10)
[2018-06-01] MEDS: Ranolazine 500 mg Extended Release Tablets PO SCH (18:38)
[2018-06-02] MEDS: HYDROmorphone 1 mg/ml ISec IVP PRN ×4 (02:20→21:55)
[2018-06-02] MEDS: Piperacill/Tazo 2.25gm in Dex 2.25 GM/50 ML BAG IVPB SCH ×3 (04:30→20:10)
[2018-06-02 06:25] LABS: BASO % 0.4 % (0.0-2.0); EOS # 0.4 K/uL (0.0-0.7); EOS % 3.8 % (0.0-4.0); LYMPH # 1.1 K/uL (1.0-4.3); LYMPH % 11.6 % (20.0-40.0); MEAN CELL VOLUME 94.9 fL (80.0-94.0); MEAN CORPUSCULAR HGB CONC 31.6 g/dL (33.0-37.0); MEAN PLATELET VOLUME 9.8 fL (7.2-11.7); MONO # 0.7 K/uL (0.0-0.8); MONO % 8.1 % (0.0-10.0); NEUT % 76.1 % (50.0-75.0); RBC 2.49 Mil/uL (4.40-5.90); RED CELL DISTRIBUTION WIDTH 21.2 % (11.5-14.5); WHITE BLOOD COUNT 9.2 K/uL (4.8-10.8)
[2018-06-02 06:39] LABS: HEMOGLOBIN 7.5 g/dL (12.0-18.0)
[2018-06-02 06:41] LABS: ALB/GLOB RATIO 1.1 (1.0-2.1); ALBUMIN 3.3 g/dL (3.5-5.0)
--- NOTE | 2018-06-02 08:41 | RAD ---
Date of service: 06/02/2018 HISTORY: fluid overload follow up COMPARISON: 06/01/2018 FINDINGS: Right-sided dialysis catheter terminates in the right atrium LUNGS: There is interval improved aeration in both lungs with residual patchy airspace disease in the right lung base. Improved pulmonary venous congestion. PLEURA: Significant improved pleural effusions with residual small effusions. No pneumothorax apparent. CARDIOVASCULAR: Persistent mild cardiomegaly. Status post CABG. OSSEOUS STRUCTURES: No significant abnormalities. VISUALIZED UPPER ABDOMEN: Normal. OTHER FINDINGS: None. IMPRESSION: Interval significant improvement in congestive heart failure.
[2018-06-02] MEDS ORDERED: Epoetin Alfa 10,000 unit/ml Dialysis IV ONE ×2 (09:15→10:45)
[2018-06-02] MEDS: Ranolazine 500 mg Extended Release Tablets PO SCH ×2 (11:00→17:36)
--- NOTE | 2018-06-02 13:12 | CP.PCM.CON ---
History of Present Illness - History of Present Illness History of Present Illness: Presents after missed HD and fluid overload and congestion. Well known patient Multiple admissions Known AFIB/Flutter and was scheduled for aflutter ablation recently but deferred due to finding of clot around the permacath right atrium : started on eliquis 2.5 BID but unlikely taking: also recently confirmed to have HIT and PE thus no heparin and started on inc dose of eliquis 5 BID at [facility] [place]. [place] HX; Severe multivessel CAD, prior CABG and PCI nd residual small vessel severe diabetic disease not amenable to PCI: on medical therapy Acute on chronic mild-mod systolic and Grade 3 diastolic dysfunction AFLUTTER/FIB paroxysmal: maintained on amiodarone B/L BKA, ESRD, on HD, legally blind, Kleinfelters syndrome Chronic CAD: not sutiable for further PCI Chronic Mild-mod LV dysfunction with acute on chronic diastolic dysfunction Uncontrolled DM Recurrent AFLutter with RVR: aflutter ablation deferred due to finding of RA thrombus around permacath site (04/2018 [facility] B/L BKA Legally blind HIT Past Patient History - Infectious Disease Hx of Infectious Diseases: None - Tetanus Immunizations Tetanus Immunization: >10 years Ago - Past Medical History & Family History Past Medical History?: Yes - Past Social History Smoking Status: Never Smoked - CARDIAC Hx Atrial Fibrillation: Yes Hx Cardia Arrhythmia: Yes Hx Congestive Heart Failure: Yes Hx Hypercholesterolemia: Yes Hx Hypertension: Yes - PULMONARY Hx Asthma: Yes Hx Bronchitis: Yes Hx Chronic Obstructive Pulmonary Disease (COPD): Yes Hx Pneumonia: Yes - NEUROLOGICAL Hx Alzheimer's Disease: Yes Hx Seizures: Yes - HEENT Hx HEENT Problems: Yes Hx Blind: Yes Hx Cataracts: Yes - RENAL Hx Chronic Kidney Disease: Yes Hx Kidney Stones: No - ENDOCRINE/METABOLIC Hx Hyperthyroidism: No Hx Hypothyroidism: Yes - HEMATOLOGICAL/ONCOLOGICAL Hx Anemia: Yes - INTEGUMENTARY Hx Dermatological Problems: No - MUSCULOSKELETAL/RHEUMATOLOGICAL Hx Arthritis: Yes - GASTROINTESTINAL Hx Gall Bladder Disease: Yes Hx Gastritis: Yes - GENITOURINARY/GYNECOLOGICAL Hx Sexually Transmitted Disorders: No - PSYCHIATRIC Hx Anxiety: Yes Hx Depression: Yes Hx Substance Use: No - SURGICAL HISTORY Hx Cholecystectomy: Yes (2011) 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/2009) Hx Coronary Stent: Yes - ANESTHESIA Hx Anesthesia: Yes Hx Anesthesia Reactions: No Hx Malignant Hyperthermia: No Meds Allergies/Adverse Reactions: Allergies Allergy/AdvReac Type Severity Reaction Status Date / Time acetaminophen [From Percocet] Allergy RASH Verified 05/07/18 11:00 atenolol Allergy RASH Verified 05/07/18 11:00 digoxin Allergy RASH Verified 05/07/18 11:00 milk Allergy ITCHING Verified 05/07/18 11:00 morphine Allergy RASH Verified 05/07/18 11:00 oxycodone HCl [From Percocet] Allergy RASH Verified 05/07/18 11:00 - Medications Medications: Current Medications Amiodarone HCl (Cordarone) 200 mg PO DAILY [facility] Last Admin: 06/01/18 09:41 Dose: 200 mg Amlodipine Besylate (Norvasc) 10 mg PO DAILY [facility] Last Admin: 06/01/18 10:07 Dose: 10 mg Apixaban (Eliquis) 2.5 mg PO BID [facility] Last Admin: 06/01/18 18:38 Dose: 2.5 mg Aspirin (Aspirin Chewable) 81 mg PO DAILY [facility] Last Admin: 06/01/18 09:41 Dose: 81 mg Calcitriol (Rocaltrol) 0.25 mcg PO [facility] Carvedilol (Coreg) 12.5 mg PO BID [facility] Last Admin: 06/02/18 12:17 Dose: Not Given Clopidogrel Bisulfate (Plavix) 75 mg PO DAILY [facility] Last Admin: 06/01/18 09:43 Dose: 75 mg Diltiazem HCl (Cardizem) 30 mg PO QID [facility] Last Admin: 06/02/18 12:17 Dose: Not Given Docusate Sodium (Colace) 100 mg PO BID PRN PRN Reason: Constipation Epoetin Tom (Procrit) 10,000 unit IV TTS [facility] Hydromorphone HCl (Dilaudid) 1 mg IVP Q4H PRN PRN Reason: Pain, moderate (4-7) Last Admin: 06/02/18 11:30 Dose: 1 mg Piperacillin Sod/Tazobactam Sod (Zosyn 2.25 Gm Iv Premix) 2.25 gm in 50 mls @ 100 mls/hr IVPB Q8H [facility]; Protocol Last Admin: 06/01/18 20:30 Dose: 100 mls/hr Isosorbide Mononitrate (Imdur) 60 mg PO DAILY [facility] Last Admin: 06/01/18 09:42 Dose: 60 mg Levetiracetam (Keppra) 500 mg PO BID [facility] Last Admin: 06/01/18 18:09 Dose: 500 mg Losartan Potassium (Cozaar) 100 mg PO DAILY [facility] Last Admin: 06/01/18 09:41 Dose: 100 mg Montelukast Sodium (Singulair) 10 mg PO [facility] Last Admin: 06/01/18 23:57 Dose: 10 mg Pantoprazole Sodium (Protonix Ec Tab) 20 mg PO DAILY [facility] Last Admin: 06/01/18 09:41 Dose: 20 mg Potassium Chloride (K-Dur 20 Meq Er Tab) 40 meq PO DAILY [facility] Ranolazine (Ranexa) 500 mg PO BID [facility] Last Admin: 06/01/18 18:38 Dose: 500 mg Rosuvastatin Calcium (Crestor) 10 mg PO [facility] Last Admin: 06/01/18 23:57 Dose: 10 mg Vitamin B Complex/Vit C/Folic Acid (Nephro-Courtney) 1 tab PO 0800 [facility] Physical Exam - Constitutional Appears: Chronically Ill - Head Exam Head Exam: ATRAUMATIC, NORMAL INSPECTION, NORMOCEPHALIC - Eye Exam Eye Exam: absent: Normal appearance - ENT Exam ENT Exam: Mucous Membranes Moist, Normal Oropharynx - Neck Exam Neck exam: Positive for: Normal Inspection. Negative for: Tenderness, Thyromegaly - Respiratory Exam Respiratory Exam: Rales, Rhonchi. absent: Clear to Auscultation Bilateral, Wheezes - Cardiovascular Exam Cardiovascular Exam: REGULAR RHYTHM, +S1, +S2. absent: Systolic Murmur - GI/Abdominal Exam GI & Abdominal Exam: Soft. absent: Tenderness - Neurological Exam Neurological exam: Alert, Oriented x3 Results - Vital Signs Recent Vital Signs: Last Vital Signs Temp 97.2 F L 06/02/18 09:55 Pulse 109 H 06/02/18 11:59 Resp 14 06/02/18 11:46 BP 123/53 L 06/02/18 12:25 Pulse Ox 100 06/02/18 11:46 - Labs Result Diagrams: 06/02/18 06:16 06/02/18 06:16 Labs: Laboratory Results - last 24 hr 05/31/18 06/01/18 06/01/18 21:06 17:42 23:32 WBC RBC Hgb Hct MCV MCH MCHC RDW Plt Count MPV Neut % (Auto) Lymph % (Auto) [place] % (Auto) Eos % (Auto) Baso % (Auto) Neut # (Auto) Lymph # (Auto) [place] # (Auto) Eos # (Auto) Baso # (Auto) Sodium Potassium Chloride Carbon Dioxide Anion Gap BUN Creatinine Est GFR ( Amer) Est GFR (Non-Af Amer) POC Glucose (mg/dL) 148 H 154 H Random Glucose Calcium Phosphorus Magnesium Total Bilirubin AST ALT Alkaline Phosphatase Total Protein Albumin Globulin Albumin/Globulin Ratio Procalcitonin 21.83 H 06/02/18 06/02/18 06/02/18 06:16 06:16 11:46 WBC 9.2 RBC 2.49 L Hgb 7.5 L D Hct 23.6 L MCV 94.9 H MCH 30.0 MCHC 31.6 L RDW 21.2 H Plt Count 165 MPV 9.8 Neut % (Auto) 76.1 H Lymph % (Auto) 11.6 L [place] % (Auto) 8.1 Eos % (Auto) 3.8 Baso % (Auto) 0.4 Neut # (Auto) 7.0 Lymph # (Auto) 1.1 [place] # (Auto) 0.7 Eos # (Auto) 0.4 Baso # (Auto) 0.0 Sodium 138 Potassium 3.3 L Chloride 96 L Carbon Dioxide 27 Anion Gap 18 BUN 34 H Creatinine 4.0 H Est GFR ( Amer) 21 Est GFR (Non-Af Amer) 17 POC Glucose (mg/dL) 138 H Random Glucose 152 H Calcium 9.0 Phosphorus 3.6 Magnesium 2.1 Total Bilirubin 0.6 AST 17 D ALT 22 Alkaline Phosphatase 112 Total Protein 6.3 Albumin 3.3 L Globulin 3.0 Albumin/Globulin Ratio 1.1 Procalcitonin - EKG Data EKG Interpreted by: Myself (Sinus tach, IVCD, LVH with strain) - Imaging and Cardiology Chest x-ray Status: Image reviewed by me (improved congestion) Assessment & Plan - Assessment and Plan (Free Text) Assessment: Acute on chronic mild-mod systolic and diastolic dysfunction - maintain fluid status with regular HD - cont coreg - cont BIPAP Chronic recurrent CHEST PAIN - chronic recurrent: likely musculoskeletal - minimal troponin in past is c/w ESRD and possibly microvascular disease and demand ischemia - known severe CAD: and small residual elem vessel CAD with failed bypass grafts: too small for any additional PCI - cont ranexa and imdur ESRD - cont HD - monitor lytes and replace as needed HTN - labile, improved - cont current meds and titrate as tolerated - coreg 25 BID, norvasc 10, losartan 100, DM - uncontrolled - probable gastroparesis - PPI and zofran Aflutter - paroxysmal - now NSR - HX fo clot around permacath: AFLUTTER ABLATION in future after complete anticoagulation course. - cont coreg and cardizem for now - ON amiodarone: monitor for zaida Hypercoagulable state - hx of perm catheter thrombus - recent PE [place] [facility] [place] - HIT - suggest eliquis 5 BID - d/c plavix cont ASA 81 to avoid risk of bleed from triple therapy
[2018-06-02] MEDS: Pantoprazole 20 mg EC Tab PO SCH (13:52)
[2018-06-02] MEDS: Multivitamin Vitamin B Complex (Nephro-Vite) Tab PO SCH (14:01)
[2018-06-02] MEDS: Potassium Chloride 20 mEq ER Tab PO SCH (14:16)
--- NOTE | 2018-06-02 14:59 | CP.CCUPN ---
CCU Subjective - Physician Review Subjective (Free Text): 06/02/18 14:57 Pt seen and examined at bedside. Pt denies acute events overnight. Pt receiving HD today (extra session). Pt complains of cp, sob . hungry wants to eat 06/02/18 14:59 CCU Objective - Vital Signs / Intake & Output Vital Signs (Last 4 hours): Vital Signs Temp Pulse Pulse Resp BP BP Pulse Ox 06/02/18 14:06 65 12 117/53 L 100 06/02/18 14:00 57 L 15 100 06/02/18 13:06 62 15 110/69 100 06/02/18 13:01 60 15 111/37 L 100 06/02/18 13:00 59 L 14 100 06/02/18 12:55 97.2 F L 72 14 111/37 L 100 06/02/18 12:45 59 L 16 99/48 L 06/02/18 12:30 60 10 L 123/53 L 06/02/18 12:25 123/53 L 06/02/18 12:15 59 L 13 102/34 L 100 06/02/18 12:00 69 11 L 112/37 L 06/02/18 11:59 109 H 06/02/18 11:55 112/57 L 06/02/18 11:46 76 14 99/34 L 100 06/02/18 11:30 77 24 130/41 L 06/02/18 11:25 130/41 L 06/02/18 11:15 60 12 131/50 L 100 06/02/18 11:00 60 16 133/58 L 100 Intake and Output (Last 8hrs): Intake & Output 06/01/18 06/02/18 06/02/18 22:59 06:59 14:59 Intake Total 100 40 0 Output Total 0 0 Balance 100 40 0 Weight 109 lb 3.2 oz Intake: Intake, IV Amount 50 0 0 Left upper arm 50 0 0 left upper arm 0 Oral 50 40 0 Output: Urine 0 0 Urine, Voided 0 0 Other: # Bowel Movements 0 0 - Physical Exam Head: Positive for: Atraumatic, Normocephalic Pupils: Negative for: Non-Reactive, Pinpoint Extroacular Muscles: Positive for: EOMI Conjunctiva: Positive for: Normal. Negative for: Injected, Icteric Mouth: Positive for: Moist Mucous Membranes Nose (External): Positive for: Atraumatic. Negative for: Abrasion, Contusion, Laceration Neck: Positive for: Normal Range of Motion, Trachea Midline. Negative for: JVD Respiratory/Chest: Positive for: Good Air Exchange, Rales (diffuse but improved rales in all davis), Other (on Bipap). Negative for: Respiratory Distress, Wheezes, Rhonchi Cardiovascular: Positive for: Normal S1, S2, Peripheal Pulses Present (+2 radials, bilateral BKA so unable to palpate pedal pulses), Tachycardic, Other (tachy in 100's, intermittent episodes of 4-8 beat runs of VTach). Negative for: Regular Rate and Rhythm, Murmurs, Bradycardic Abdomen: Positive for: Normal Bowel Sounds. Negative for: Tenderness, Distention Upper Extremity: Positive for: Normal Inspection, Normal ROM, NORMAL PULSES. Negative for: Cyanosis, Edema Lower Extremity: Positive for: Edema, Deformity (bilateral BKA, well healed stumps). Negative for: Normal Inspection, Tenderness Neurological: Positive for: GCS=15, Speech Normal Skin: Positive for: Warm, Dry, Normal Color. Negative for: Rashes - Medications Active Medications: Active Medications Generic Name Dose Route Start Last Admin Trade Name Freq PRN Reason Stop Dose Admin Amiodarone HCl 200 mg 05/31/18 14:45 06/02/18 14:08 Cordarone PO Not Given DAILY [facility] Amlodipine Besylate 10 mg 06/01/18 10:00 06/02/18 12:00 Norvasc PO Not Given DAILY [facility] Apixaban 2.5 mg 06/01/18 18:00 06/02/18 14:00 Eliquis PO 2.5 mg BID [facility] Administration Aspirin 81 mg 05/31/18 14:45 06/02/18 13:52 Aspirin Chewable PO 81 mg DAILY [facility] Administration Calcitriol 0.25 mcg 06/03/18 10:00 Rocaltrol PO TTS [facility] Carvedilol 12.5 mg 06/01/18 10:00 06/02/18 12:17 Coreg PO Not Given BID [facility] Clopidogrel Bisulfate 75 mg 06/01/18 10:00 06/02/18 13:52 Plavix PO 75 mg DAILY [facility] Administration Diltiazem HCl 30 mg 05/31/18 18:00 06/02/18 14:13 Cardizem PO Not Given QID [facility] Docusate Sodium 100 mg 06/01/18 10:21 Colace PO BID PRN Constipation Epoetin Tom 10,000 unit 06/03/18 10:00 Procrit IV TTS [facility] Hydromorphone HCl 1 mg 06/01/18 13:35 06/02/18 11:30 Dilaudid IVP 1 mg Q4H PRN Administration Pain, moderate (4-7) Piperacillin Sod/Tazobactam Sod 2.25 gm in 50 mls @ 100 mls/hr 05/31/18 20:00 06/02/18 13:50 Zosyn 2.25 Gm Iv Premix IVPB 100 mls/hr Q8H [facility] Administration Protocol Isosorbide Mononitrate 60 mg 06/01/18 10:00 06/01/18 09:42 Imdur PO 60 mg DAILY [facility] Administration Levetiracetam 500 mg 06/01/18 18:00 06/02/18 13:51 Keppra PO 500 mg BID [facility] Administration Losartan Potassium 100 mg 05/31/18 14:45 06/02/18 12:00 Cozaar PO Not Given DAILY [facility] Montelukast Sodium 10 mg 06/01/18 22:00 06/01/18 23:57 Singulair PO 10 mg HS [facility] Administration Pantoprazole Sodium 20 mg 06/01/18 10:00 06/02/18 13:52 Protonix Ec Tab PO 20 mg DAILY [facility] Administration Potassium Chloride 40 meq 06/02/18 10:00 06/02/18 14:16 K-Dur 20 Meq Er Tab PO Not Given DAILY [facility] Ranolazine 500 mg 06/01/18 18:00 06/02/18 11:00 Ranexa PO Not Given BID [facility] Rosuvastatin Calcium 10 mg 05/31/18 22:00 06/01/18 23:57 Crestor PO 10 mg HS [facility] Administration Vitamin B Complex/Vit C/Folic Acid 1 tab 06/02/18 08:00 06/02/18 14:01 Nephro-Courtney PO 1 tab 0800 [facility] Administration - Patient Studies Lab Studies: Microbiology Studies 05/31/18 12:30 Blood Culture - Preliminary Blood NO GROWTH AFTER 48 HOURS 05/31/18 12:30 Blood Culture - Preliminary Blood NO GROWTH AFTER 48 HOURS 05/31/18 15:29 MRSA Culture (Admit) - Final Nose Lab Studies 06/02/18 06/02/18 06/02/18 Range/Units 11:46 06:16 06:16 WBC 9.2 (4.8-10.8) K/uL RBC 2.49 L (4.40-5.90) Mil/uL Hgb 7.5 L D (12.0-18.0) g/dL Hct 23.6 L (35.0-51.0) % MCV 94.9 H (80.0-94.0) fL MCH 30.0 (27.0-31.0) pg MCHC 31.6 L (33.0-37.0) g/dL RDW 21.2 H (11.5-14.5) % Plt Count 165 (130-400) K/uL MPV 9.8 (7.2-11.7) fL Neut % (Auto) 76.1 H (50.0-75.0) % Lymph % (Auto) 11.6 L (20.0-40.0) % Billings % (Auto) 8.1 (0.0-10.0) % Eos % (Auto) 3.8 (0.0-4.0) % Baso % (Auto) 0.4 (0.0-2.0) % Neut # (Auto) 7.0 (1.8-7.0) K/uL Lymph # (Auto) 1.1 (1.0-4.3) K/uL Billings # (Auto) 0.7 (0.0-0.8) K/uL Eos # (Auto) 0.4 (0.0-0.7) K/uL Baso # (Auto) 0.0 (0.0-0.2) K/uL Sodium 138 (132-148) mmol/L Potassium 3.3 L (3.6-5.2) mmol/L Chloride 96 L (98-107) mmol/L Carbon Dioxide 27 (22-30) mmol/L Anion Gap 18 (10-20) BUN 34 H (9-20) mg/dL Creatinine 4.0 H (0.8-1.5) mg/dL Est GFR ( Amer) 21 Est GFR (Non-Af Amer) 17 POC Glucose (mg/dL) 138 H (65-110) mg/dL Random Glucose 152 H (75-110) mg/dL Calcium 9.0 (8.6-10.4) mg/dl Phosphorus 3.6 (2.5-4.5) mg/dL Magnesium 2.1 (1.6-2.3) mg/dL Total Bilirubin 0.6 (0.2-1.3) mg/dL AST 17 D (17-59) U/L ALT 22 (21-72) U/L Alkaline Phosphatase 112 (38-126) U/L Total Protein 6.3 (6.3-8.3) g/dL Albumin 3.3 L (3.5-5.0) g/dL Globulin 3.0 (2.2-3.9) gm/dL Albumin/Globulin Ratio 1.1 (1.0-2.1) Procalcitonin (0.19-0.49) NG/ML 06/01/18 06/01/18 05/31/18 Range/Units 23:32 17:42 21:06 WBC (4.8-10.8) K/uL RBC (4.40-5.90) Mil/uL Hgb (12.0-18.0) g/dL Hct (35.0-51.0) % MCV (80.0-94.0) fL MCH (27.0-31.0) pg MCHC (33.0-37.0) g/dL RDW (11.5-14.5) % Plt Count (130-400) K/uL MPV (7.2-11.7) fL Neut % (Auto) (50.0-75.0) % Lymph % (Auto) (20.0-40.0) % Billings % (Auto) (0.0-10.0) % Eos % (Auto) (0.0-4.0) % Baso % (Auto) (0.0-2.0) % Neut # (Auto) (1.8-7.0) K/uL Lymph # (Auto) (1.0-4.3) K/uL Billings # (Auto) (0.0-0.8) K/uL Eos # (Auto) (0.0-0.7) K/uL Baso # (Auto) (0.0-0.2) K/uL Sodium (132-148) mmol/L Potassium (3.6-5.2) mmol/L Chloride (98-107) mmol/L Carbon Dioxide (22-30) mmol/L Anion Gap (10-20) BUN (9-20) mg/dL Creatinine (0.8-1.5) mg/dL Est GFR ( Amer) Est GFR (Non-Af Amer) POC Glucose (mg/dL) 154 H 148 H (65-110) mg/dL Random Glucose (75-110) mg/dL Calcium (8.6-10.4) mg/dl Phosphorus (2.5-4.5) mg/dL Magnesium (1.6-2.3) mg/dL Total Bilirubin (0.2-1.3) mg/dL AST (17-59) U/L ALT (21-72) U/L Alkaline Phosphatase (38-126) U/L Total Protein (6.3-8.3) g/dL Albumin (3.5-5.0) g/dL Globulin (2.2-3.9) gm/dL Albumin/Globulin Ratio (1.0-2.1) Procalcitonin 21.83 H (0.19-0.49) NG/ML Laboratory Results - last 24 hr 05/31/18 06/01/18 06/01/18 21:06 17:42 23:32 WBC RBC Hgb Hct MCV MCH MCHC RDW Plt Count MPV Neut % (Auto) Lymph % (Auto) Billings % (Auto) Eos % (Auto) Baso % (Auto) Neut # (Auto) Lymph # (Auto) Billings # (Auto) Eos # (Auto) Baso # (Auto) Sodium Potassium Chloride Carbon Dioxide Anion Gap BUN Creatinine Est GFR ( Amer) Est GFR (Non-Af Amer) POC Glucose (mg/dL) 148 H 154 H Random Glucose Calcium Phosphorus Magnesium Total Bilirubin AST ALT Alkaline Phosphatase Total Protein Albumin Globulin Albumin/Globulin Ratio Procalcitonin 21.83 H 06/02/18 06/02/18 06/02/18 06:16 06:16 11:46 WBC 9.2 RBC 2.49 L Hgb 7.5 L D Hct 23.6 L MCV 94.9 H MCH 30.0 MCHC 31.6 L RDW 21.2 H Plt Count 165 MPV 9.8 Neut % (Auto) 76.1 H Lymph % (Auto) 11.6 L Billings % (Auto) 8.1 Eos % (Auto) 3.8 Baso % (Auto) 0.4 Neut # (Auto) 7.0 Lymph # (Auto) 1.1 Billings # (Auto) 0.7 Eos # (Auto) 0.4 Baso # (Auto) 0.0 Sodium 138 Potassium 3.3 L Chloride 96 L Carbon Dioxide 27 Anion Gap 18 BUN 34 H Creatinine 4.0 H Est GFR ( Amer) 21 Est GFR (Non-Af Amer) 17 POC Glucose (mg/dL) 138 H Random Glucose 152 H Calcium 9.0 Phosphorus 3.6 Magnesium 2.1 Total Bilirubin 0.6 AST 17 D ALT 22 Alkaline Phosphatase 112 Total Protein 6.3 Albumin 3.3 L Globulin 3.0 Albumin/Globulin Ratio 1.1 Procalcitonin Fingerstick Blood Sugar Results: 138 Review of Systems - Review of Systems All systems: reviewed and no additional remarkable complaints except (chest pain and SOB) Critical Care Progress Note - Nutrition Nutrition: Nutrition Category Date Time Status Renal Diet [DIET] Diets 06/02/18 Lunch Active Assessment/Plan - Assessment and Plan (Free Text) Assessment: This is a 37 yo transgender (M -> F) with notable PMH of ESRD on HD (//Sat) via permacath, bilateral BKA, chronic anemia, DM, HTN, CAD s/p CABG, diastolic CHF, paroxysmal Aflutter/Afib, and hx HIT who presented today with complaint of SOB and chronic chest pain, likely 2/2 missed HD. Admitted to ICU for pending HD and concerns in ED for possible VTach. extra HD today as per Nephro. Plan: Neuro: -more awake and alert today -will continue home dose of opioids once confirmed by PMD, to prevent withdrawal, but avoid any additional due to concerns for sedating and respiratory suppression -maintain normothermia -aspiration precautions Pulm: -CXR obtained in ED, highly concerning for fluid overload/pulm edema, also possible aspiration; improved CXR today s/p HD -Satting well on Bipap, continue, pending repeat ABG today -WBCs 9, PNA vs stress elevation 2/2 respiratory distress, empirically covering with Zosyn -05/31 Procal elevated at 21.83, blood cx negative at 48 hrs Cardio: -s/p extra session of HD -HTN, SBP 180's this AM, continue home losartan, coreg/amlodipine/Imdur -Cardio consulted, appreciate all recs; SVT with aberrancy, not VTach in ED -Continue ASA 81mg, Statin, Home PO diltiazem and amiodarone. GI: -NPO due to lethargy and Bipap, increased risk of aspirations, jeff with concern for possible aspiration prior to arrival -Protonix for GI ppx Renal: -ESRD on HD, missed last session prior to presentation, common presentation for this patient Underwent HD yesterday, extra session today, then resume TThSat schedule as per Nephro -K wnl (3.3) on labs again today -Monitor electrolytes, but defer repletions unless critically low due to ESRD -Nephro consulted, appreciate all recs Heme: -Hgb 9.5, baseline per prior charting appears to be 8-11 -borderline macrocytic with noticeably wide RDW, anemia of chronic disease +/- nutritional component -no need for transfusions at this time, monitor -hx of HIT, heparin contraindicated for DVT ppx, and hx BKA, so unable to wear SCDs ID: -Leukocytosis resolved, WBCs today 9 -stress reaction from resp distress vs PNA, concern for aspiration PNA so need anaerobic coverage -Zosyn empirically, cultures negative x2 at 48 hrs, 05/31 Procal elevated at 21.83
--- NOTE | 2018-06-02 15:32 | CP.PCM.PN ---
Subjective - Date & Time of Evaluation Date of Evaluation: 06/02/18 Time of Evaluation: 15:30 - Subjective Subjective: Nephrology Consultation Note: Assessment:Stable HTN emergency with Pulmonary edema , fluid overload acute respi failure chronic chest pain, A flutter Diabetic chronic Kidney Disease (E11.22) Hypertensive Chronic Kidney Disease (I12.0) End stage renal disease (N18.6) dependence on hemodialysis (Z99.2) (TTS) via AVF Anemia (D64.9), Hyperphosphatemia (E83.39), Secondary Hyperparathyroidism (E21.1), HTN (I12.0) CAD s/p CABG, diastolic CHF, parox A flutter/fib, intra-cardiac thrombus, hx of Heparin induced thrombocytopenia, hx of seizure, blindness Plan: Isolated UF today plan for dialysis saturday as per TTS schedule Continue with Nephrovite 1 tab/day. started HANNAH with HD . PRBC As needed for anemia Continue with phos binders home dose BP control with meds as ordered. on ARB as losartan Glycemic control, Dialysis consistent diet Further work up/management as per primary team Dose meds/antibiotics for ESRD status. Avoid fleets enema/magnesium based laxatives. Thanks for allowing me to participate in care of your patient. Will follow patient with you. Please call if any Qs. had d/w team Dr Eric Temple Office: [phone] CC: chest pain, SOB reason for consult: ESRD HPI: Pt is a 37 y/o transgender with hx of ESRD on hemodialysis (TTS) via permacath, chronic anemia, hyperphosphatemia, secondary hyperparathyroidism, Diabetes Mellitus, hypertension, CAD s/p CABG, diastolic CHF, pA flutter/fib, intra-cardiac thrombus, Heparin induced thrombocytopenia in past presented with complaints of SOB and chronic chest pain, he was admitted to ICU due to HTN emergency with pulm edema ROS: All other negative except as in HPI. now better improved chronic chest pain, no GI symptoms. improved SOB Physical Examination: General Appearance: in no acute respiratory distress, co-operative .better appearing Vitals reviewed and noted as below Head; Atraumatic, normocephalic ENT: no ulcers no thrush. Tongue is midline. Oropharynx: no rash or ulcers. EYES: Pt is blind both eyes Neck; supple no lymphadenopathy, no thyromegaly or bruit Lungs: Improved respiratory rate/effort. Breath sounds bilateral b/l clear today Heart: Normal rate. s1s2 normal. No rub or gallop. Extremities: no edema. No varicose veins. has b/l BKA. Neurological: Patient is awake follow commands no focal deficit Skin: Warm and dry. Normal turgor. No rash. Palpitation: Normal elasticity for age Abdomen: Abdomen is soft. Bowel sounds +. There is no abdominal tenderness, no guarding/rigidity or organomegaly Psych: limited insight and has normal affect/mood MSK: no joint tenderness or swelling. Digits and nails normal, no deformity : kidney or bladder not palpable Access: permacath Labs/imaging reviewed. Past medical history, past surgical history, family history, social history, allergy reviewed and noted as below Family Hx: no hx of CKD. Non contributory Objective - Vital Signs/Intake and Output Vital Signs (last 24 hours): Temp Pulse Resp BP Pulse Ox 97.2 F L 65 12 117/53 L 100 06/02/18 12:55 06/02/18 14:06 06/02/18 14:06 06/02/18 14:06 06/02/18 14:06 Intake and Output: 06/02/18 06/02/18 06:59 18:59 Intake Total 140 0 Output Total 0 Balance 140 0 - Medications Medications: Current Medications Amiodarone HCl (Cordarone) 200 mg PO DAILY [facility] Last Admin: 06/02/18 14:08 Dose: Not Given Amlodipine Besylate (Norvasc) 10 mg PO DAILY [facility] Last Admin: 06/02/18 12:00 Dose: Not Given Apixaban (Eliquis) 2.5 mg PO BID [facility] Last Admin: 06/02/18 14:00 Dose: 2.5 mg Aspirin (Aspirin Chewable) 81 mg PO DAILY [facility] Last Admin: 06/02/18 13:52 Dose: 81 mg Calcitriol (Rocaltrol) 0.25 mcg PO TTS [facility] Carvedilol (Coreg) 12.5 mg PO BID [facility] Last Admin: 06/02/18 12:17 Dose: Not Given Clopidogrel Bisulfate (Plavix) 75 mg PO DAILY [facility] Last Admin: 06/02/18 13:52 Dose: 75 mg Diltiazem HCl (Cardizem) 30 mg PO QID [facility] Last Admin: 06/02/18 14:13 Dose: Not Given Docusate Sodium (Colace) 100 mg PO BID PRN PRN Reason: Constipation Epoetin Tom (Procrit) 10,000 unit IV TTS [facility] Hydromorphone HCl (Dilaudid) 1 mg IVP Q4H PRN PRN Reason: Pain, moderate (4-7) Last Admin: 06/02/18 11:30 Dose: 1 mg Piperacillin Sod/Tazobactam Sod (Zosyn 2.25 Gm Iv Premix) 2.25 gm in 50 mls @ 100 mls/hr IVPB Q8H [facility]; Protocol Last Admin: 06/02/18 13:50 Dose: 100 mls/hr Isosorbide Mononitrate (Imdur) 60 mg PO DAILY [facility] Last Admin: 06/01/18 09:42 Dose: 60 mg Levetiracetam (Keppra) 500 mg PO BID [facility] Last Admin: 06/02/18 13:51 Dose: 500 mg Losartan Potassium (Cozaar) 100 mg PO DAILY [facility] Last Admin: 06/02/18 12:00 Dose: Not Given Montelukast Sodium (Singulair) 10 mg PO HS [facility] Last Admin: 06/01/18 23:57 Dose: 10 mg Pantoprazole Sodium (Protonix Ec Tab) 20 mg PO DAILY [facility] Last Admin: 06/02/18 13:52 Dose: 20 mg Potassium Chloride (K-Dur 20 Meq Er Tab) 40 meq PO DAILY [facility] Last Admin: 06/02/18 14:16 Dose: Not Given Ranolazine (Ranexa) 500 mg PO BID [facility] Last Admin: 06/02/18 11:00 Dose: Not Given Rosuvastatin Calcium (Crestor) 10 mg PO HS [facility] Last Admin: 06/01/18 23:57 Dose: 10 mg Vitamin B Complex/Vit C/Folic Acid (Nephro-Courtney) 1 tab PO 0800 [facility] Last Admin: 06/02/18 14:01 Dose: 1 tab - Labs Labs: 06/02/18 06:16 06/02/18 06:16 PT 15.0 SECONDS (9.7-12.2) H 05/31/18 11:34 INR 1.4 05/31/18 11:34 APTT 210 SECONDS (21-34) H* 05/31/18 11:34
--- NOTE | 2018-06-02 17:38 | CP.PCM.PN ---
Subjective - Date & Time of Evaluation Date of Evaluation: 06/02/18 Time of Evaluation: 17:35 - Subjective Subjective: less sob weeke chest pain on and off Objective - Vital Signs/Intake and Output Vital Signs (last 24 hours): Temp Pulse Resp BP Pulse Ox 97.2 F L 66 17 97/30 L 100 06/02/18 12:55 06/02/18 16:06 06/02/18 16:06 06/02/18 17:34 06/02/18 16:06 Intake and Output: 06/02/18 06/02/18 06:59 18:59 Intake Total 140 150 Output Total 0 Balance 140 150 - Medications Medications: Current Medications Amiodarone HCl (Cordarone) 200 mg PO DAILY [facility] Last Admin: 06/02/18 14:08 Dose: Not Given Amlodipine Besylate (Norvasc) 5 mg PO DAILY [facility] Apixaban (Eliquis) 2.5 mg PO BID [facility] Last Admin: 06/02/18 14:00 Dose: 2.5 mg Aspirin (Aspirin Chewable) 81 mg PO DAILY [facility] Last Admin: 06/02/18 13:52 Dose: 81 mg Calcitriol (Rocaltrol) 0.25 mcg PO TTS [facility] Carvedilol (Coreg) 12.5 mg PO BID [facility] Last Admin: 06/02/18 17:34 Dose: Not Given Clopidogrel Bisulfate (Plavix) 75 mg PO DAILY [facility] Last Admin: 06/02/18 13:52 Dose: 75 mg Diltiazem HCl (Cardizem) 30 mg PO QID [facility] Last Admin: 06/02/18 17:34 Dose: Not Given Docusate Sodium (Colace) 100 mg PO BID PRN PRN Reason: Constipation Epoetin Tom (Procrit) 10,000 unit IV TTS [facility] Hydromorphone HCl (Dilaudid) 1 mg IVP Q4H PRN PRN Reason: Pain, moderate (4-7) Last Admin: 06/02/18 17:32 Dose: 1 mg Piperacillin Sod/Tazobactam Sod (Zosyn 2.25 Gm Iv Premix) 2.25 gm in 50 mls @ 100 mls/hr IVPB Q8H [facility]; Protocol Last Admin: 06/02/18 13:50 Dose: 100 mls/hr Isosorbide Mononitrate (Imdur) 60 mg PO DAILY [facility] Last Admin: 06/02/18 17:32 Dose: 60 mg Levetiracetam (Keppra) 500 mg PO BID [facility] Last Admin: 06/02/18 13:51 Dose: 500 mg Losartan Potassium (Cozaar) 100 mg PO DAILY [facility] Last Admin: 06/02/18 12:00 Dose: Not Given Montelukast Sodium (Singulair) 10 mg PO HS [facility] Last Admin: 06/01/18 23:57 Dose: 10 mg Pantoprazole Sodium (Protonix Ec Tab) 20 mg PO DAILY [facility] Last Admin: 06/02/18 13:52 Dose: 20 mg Potassium Chloride (K-Dur 20 Meq Er Tab) 40 meq PO DAILY [facility] Last Admin: 06/02/18 14:16 Dose: Not Given Ranolazine (Ranexa) 500 mg PO BID [facility] Last Admin: 06/02/18 11:00 Dose: Not Given Rosuvastatin Calcium (Crestor) 10 mg PO [facility] Last Admin: 06/01/18 23:57 Dose: 10 mg Vitamin B Complex/Vit C/Folic Acid (Nephro-Courtney) 1 tab PO 0800 [facility] Last Admin: 06/02/18 14:01 Dose: 1 tab - Labs Labs: 06/02/18 06:16 06/02/18 06:16 PT 15.0 SECONDS (9.7-12.2) H 05/31/18 11:34 INR 1.4 05/31/18 11:34 APTT 210 SECONDS (21-34) H* 05/31/18 11:34 - Constitutional Appears: Non-toxic - Head Exam Head Exam: NORMAL INSPECTION - Eye Exam Eye Exam: Conjunctival injection - ENT Exam ENT Exam: Mucous Membranes Dry - Neck Exam Neck Exam: Full ROM - Cardiovascular Exam Cardiovascular Exam: Tachycardia, +S1, +S2, +S4 - GI/Abdominal Exam GI & Abdominal Exam: Soft - Rectal Exam Rectal Exam: Deferred - Back Exam Back Exam: NORMAL INSPECTION - Neurological Exam Neurological Exam: Awake, Oriented x3 - Psychiatric Exam Psychiatric exam: Normal Affect - Skin Skin Exam: Pallor Assessment and Plan - Assessment and Plan (Free Text) Assessment: severe aneamia chf hypotension cad esrf Plan: transfuse rbc
--- NOTE | 2018-06-02 22:03 | CARD ---
APPROVED REPORT Date of service: 05/31/2018 EKG Measurement Heart [id number] <Conclusion> Sinus tachycardia Left ventricular hypertrophy with repolarization abnormality Inferior infarct, age undetermined Abnormal ECG
--- NOTE | 2018-06-02 22:10 | CARD ---
APPROVED REPORT Date of service: 05/31/2018 EKG Measurement Heart [id number] <Conclusion> SInus rhythm rhythm Left ventricular hypertrophy with QRS widening and repolarization abnormality Short runs of V-tach Inferior infarct, age undetermined Abnormal ECG
[2018-06-03] MEDS: Piperacill/Tazo 2.25gm in Dex 2.25 GM/50 ML BAG IVPB SCH ×3 (04:15→21:26)
[2018-06-03] MEDS: HYDROmorphone 1 mg/ml ISec IVP PRN ×5 (04:40→21:34)
[2018-06-03 06:16] LABS: BASO % 0.6 % (0.0-2.0); EOS # 0.4 K/uL (0.0-0.7); EOS % 5.8 % (0.0-4.0); HEMOGLOBIN 7.4 g/dL (12.0-18.0); LYMPH # 0.7 K/uL (1.0-4.3); LYMPH % 10.9 % (20.0-40.0); MEAN CELL VOLUME 95.5 fL (80.0-94.0); MEAN CORPUSCULAR HEMOGLOBIN 30.7 pg (27.0-31.0); MEAN CORPUSCULAR HGB CONC 32.1 g/dL (33.0-37.0); MEAN PLATELET VOLUME 10.4 fL (7.2-11.7); MONO # 0.8 K/uL (0.0-0.8); MONO % 11.2 % (0.0-10.0); NEUT # 4.8 K/uL (1.8-7.0); NEUT % 71.5 % (50.0-75.0); RBC 2.43 Mil/uL (4.40-5.90); RED CELL DISTRIBUTION WIDTH 20.3 % (11.5-14.5); WHITE BLOOD COUNT 6.7 K/uL (4.8-10.8)
[2018-06-03 06:41] LABS: ALB/GLOB RATIO 1.1 (1.0-2.1); ALBUMIN 3.4 g/dL (3.5-5.0); CALCIUM 8.8 mg/dl (8.6-10.4)
[2018-06-03] MEDS: Multivitamin Vitamin B Complex (Nephro-Vite) Tab PO SCH (09:00)
[2018-06-03] MEDS: Pantoprazole 20 mg EC Tab PO SCH (09:12)
[2018-06-03] MEDS: Ranolazine 500 mg Extended Release Tablets PO SCH ×2 (09:12→17:33)
[2018-06-03] MEDS: Potassium Chloride 20 mEq ER Tab PO SCH (09:12)
[2018-06-03] MEDS: Epoetin Alfa 10,000 unit/ml Dialysis IV SCH (12:05)
--- NOTE | 2018-06-03 12:17 | CP.PCM.PN ---
Subjective - Date & Time of Evaluation Date of Evaluation: 06/03/18 Time of Evaluation: 12:16 - Subjective Subjective: Nephrology Consultation Note: Assessment:Stable HTN emergency with Pulmonary edema , fluid overload acute respi failure chronic chest pain, A flutter Diabetic chronic Kidney Disease (E11.22) Hypertensive Chronic Kidney Disease (I12.0) End stage renal disease (N18.6) dependence on hemodialysis (Z99.2) (TTS) via AVF Anemia (D64.9), Hyperphosphatemia (E83.39), Secondary Hyperparathyroidism (E21.1), HTN (I12.0) CAD s/p CABG, diastolic CHF, parox A flutter/fib, intra-cardiac thrombus, hx of Heparin induced thrombocytopenia, hx of seizure, blindness Plan: plan for dialysis saturday as per TTS schedule Continue with Nephrovite 1 tab/day. started HANNAH with HD . PRBC As needed for anemia, ordered for 1 unit PRBC 06/03/18 Continue with phos binders home dose BP control with meds as ordered. on ARB as losartan Glycemic control, Dialysis consistent diet Further work up/management as per primary team Dose meds/antibiotics for ESRD status. Avoid fleets enema/magnesium based laxat justice. cardiology following Thanks for allowing me to participate in care of your patient. Will follow patient with you. Please call if any Qs. had d/w team Dr Eric Temple Office: [phone] CC: chest pain, SOB reason for consult: ESRD HPI: Pt is a 37 y/o transgender with hx of ESRD on hemodialysis (TTS) via permacath, chronic anemia, hyperphosphatemia, secondary hyperparathyroidism, Diabetes Mellitus, hypertension, CAD s/p CABG, diastolic CHF, pA flutter/fib, intra-cardiac thrombus, Heparin induced thrombocytopenia in past presented with complaints of SOB and chronic chest pain, he was admitted to ICU due to HTN emergency with pulm edema ROS: All other negative except as in HPI. now better improved chronic chest pain, no GI symptoms. improved SOB Physical Examination: seen on HD General Appearance: in no acute respiratory distress, co-operative .better appearing Vitals reviewed and noted as below Head; Atraumatic, normocephalic ENT: no ulcers no thrush. Tongue is midline. Oropharynx: no rash or ulcers. EYES: Pt is blind both eyes Neck; supple no lymphadenopathy, no thyromegaly or bruit Lungs: Improved respiratory rate/effort. Breath sounds bilateral b/l clear today Heart: Normal rate. s1s2 normal. No rub or gallop. Extremities: no edema. No varicose veins. has b/l BKA. Neurological: Patient is awake follow commands no focal deficit Skin: Warm and dry. Normal turgor. No rash. Palpitation: Normal elasticity for age Abdomen: Abdomen is soft. Bowel sounds +. There is no abdominal tenderness, no guarding/rigidity or organomegaly Psych: limited insight and has normal affect/mood MSK: no joint tenderness or swelling. Digits and nails normal, no deformity : kidney or bladder not palpable Access: permacath Labs/imaging reviewed. Past medical history, past surgical history, family history, social history, allergy reviewed and noted as below Family Hx: no hx of CKD. Non contributory Objective - Vital Signs/Intake and Output Vital Signs (last 24 hours): Temp Pulse Resp BP Pulse Ox 97.6 F 64 13 105/37 L 100 06/03/18 12:08 06/03/18 12:08 06/03/18 12:08 06/03/18 12:08 06/03/18 07:00 Intake and Output: 06/03/18 06/03/18 06:59 18:59 Intake Total 90 0 Output Total 0 0 Balance 90 0 - Medications Medications: Current Medications Amiodarone HCl (Cordarone) 200 mg PO DAILY [facility] Last Admin: 06/03/18 09:10 Dose: Not Given Amlodipine Besylate (Norvasc) 5 mg PO DAILY [facility] Last Admin: 06/03/18 09:12 Dose: Not Given Apixaban (Eliquis) 2.5 mg PO BID [facility] Last Admin: 06/03/18 09:11 Dose: 2.5 mg Aspirin (Aspirin Chewable) 81 mg PO DAILY [facility] Last Admin: 06/03/18 09:10 Dose: 81 mg Calcitriol (Rocaltrol) 0.25 mcg PO TTS [facility] Last Admin: 06/03/18 09:12 Dose: 0.25 mcg Carvedilol (Coreg) 12.5 mg PO BID [facility] Last Admin: 06/03/18 09:10 Dose: Not Given Clopidogrel Bisulfate (Plavix) 75 mg PO DAILY [facility] Last Admin: 06/03/18 09:12 Dose: 75 mg Diltiazem HCl (Cardizem) 30 mg PO QID [facility] Last Admin: 06/03/18 09:10 Dose: Not Given Docusate Sodium (Colace) 100 mg PO BID PRN PRN Reason: Constipation Epoetin Tom (Procrit) 10,000 unit IV TTS [facility] Last Admin: 06/03/18 12:05 Dose: 10,000 unit Hydromorphone HCl (Dilaudid) 1 mg IVP Q4H PRN PRN Reason: Pain, moderate (4-7) Last Admin: 06/03/18 09:19 Dose: 1 mg Piperacillin Sod/Tazobactam Sod (Zosyn 2.25 Gm Iv Premix) 2.25 gm in 50 mls @ 100 mls/hr IVPB Q8H [facility]; Protocol Last Admin: 06/03/18 04:15 Dose: 100 mls/hr Isosorbide Mononitrate (Imdur) 60 mg PO DAILY [facility] Last Admin: 06/03/18 09:11 Dose: 60 mg Levetiracetam (Keppra) 500 mg PO BID [facility] Last Admin: 06/03/18 09:12 Dose: 500 mg Losartan Potassium (Cozaar) 100 mg PO DAILY [facility] Last Admin: 06/03/18 09:10 Dose: Not Given Montelukast Sodium (Singulair) 10 mg PO HS [facility] Last Admin: 06/02/18 21:19 Dose: 10 mg Pantoprazole Sodium (Protonix Ec Tab) 20 mg PO DAILY [facility] Last Admin: 06/03/18 09:12 Dose: 20 mg Potassium Chloride (K-Dur 20 Meq Er Tab) 40 meq PO DAILY [facility] Last Admin: 06/03/18 09:12 Dose: 40 meq Ranolazine (Ranexa) 500 mg PO BID [facility] Last Admin: 06/03/18 09:12 Dose: 500 mg Rosuvastatin Calcium (Crestor) 10 mg PO HS [facility] Last Admin: 06/02/18 21:17 Dose: 10 mg Vitamin B Complex/Vit C/Folic Acid (Nephro-Courtney) 1 tab PO 0800 [facility] Last Admin: 06/03/18 09:00 Dose: 1 tab - Labs Labs: 06/03/18 06:11 06/03/18 06:11 PT 15.0 SECONDS (9.7-12.2) H 05/31/18 11:34 INR 1.4 05/31/18 11:34 APTT 210 SECONDS (21-34) H* 05/31/18 11:34
--- NOTE | 2018-06-03 12:31 | CP.PCM.PN ---
Subjective - Date & Time of Evaluation Date of Evaluation: 06/03/18 Time of Evaluation: 12:28 - Subjective Subjective: pt seen still in icu feels less pain less sob geting transfusion for severe aneamia Objective - Vital Signs/Intake and Output Vital Signs (last 24 hours): Temp Pulse Resp BP Pulse Ox 97.6 F 64 13 105/37 L 100 06/03/18 12:08 06/03/18 12:08 06/03/18 12:08 06/03/18 12:08 06/03/18 07:00 Intake and Output: 06/03/18 06/03/18 06:59 18:59 Intake Total 90 0 Output Total 0 0 Balance 90 0 - Medications Medications: Current Medications Amiodarone HCl (Cordarone) 200 mg PO DAILY [facility] Last Admin: 06/03/18 09:10 Dose: Not Given Amlodipine Besylate (Norvasc) 5 mg PO DAILY [facility] Last Admin: 06/03/18 09:12 Dose: Not Given Apixaban (Eliquis) 2.5 mg PO BID [facility] Last Admin: 06/03/18 09:11 Dose: 2.5 mg Aspirin (Aspirin Chewable) 81 mg PO DAILY [facility] Last Admin: 06/03/18 09:10 Dose: 81 mg Calcitriol (Rocaltrol) 0.25 mcg PO TTS [facility] Last Admin: 06/03/18 09:12 Dose: 0.25 mcg Carvedilol (Coreg) 12.5 mg PO BID [facility] Last Admin: 06/03/18 09:10 Dose: Not Given Clopidogrel Bisulfate (Plavix) 75 mg PO DAILY [facility] Last Admin: 06/03/18 09:12 Dose: 75 mg Diltiazem HCl (Cardizem) 30 mg PO QID [facility] Last Admin: 06/03/18 09:10 Dose: Not Given Docusate Sodium (Colace) 100 mg PO BID PRN PRN Reason: Constipation Epoetin Tom (Procrit) 10,000 unit IV TTS [facility] Last Admin: 06/03/18 12:05 Dose: 10,000 unit Hydromorphone HCl (Dilaudid) 1 mg IVP Q4H PRN PRN Reason: Pain, moderate (4-7) Last Admin: 06/03/18 09:19 Dose: 1 mg Piperacillin Sod/Tazobactam Sod (Zosyn 2.25 Gm Iv Premix) 2.25 gm in 50 mls @ 100 mls/hr IVPB Q8H [facility]; Protocol Last Admin: 06/03/18 04:15 Dose: 100 mls/hr Isosorbide Mononitrate (Imdur) 60 mg PO DAILY [facility] Last Admin: 06/03/18 09:11 Dose: 60 mg Levetiracetam (Keppra) 500 mg PO BID [facility] Last Admin: 06/03/18 09:12 Dose: 500 mg Losartan Potassium (Cozaar) 100 mg PO DAILY [facility] Last Admin: 06/03/18 09:10 Dose: Not Given Montelukast Sodium (Singulair) 10 mg PO HS [facility] Last Admin: 06/02/18 21:19 Dose: 10 mg Pantoprazole Sodium (Protonix Ec Tab) 20 mg PO DAILY [facility] Last Admin: 06/03/18 09:12 Dose: 20 mg Potassium Chloride (K-Dur 20 Meq Er Tab) 40 meq PO DAILY [facility] Last Admin: 06/03/18 09:12 Dose: 40 meq Ranolazine (Ranexa) 500 mg PO BID [facility] Last Admin: 06/03/18 09:12 Dose: 500 mg Rosuvastatin Calcium (Crestor) 10 mg PO HS [facility] Last Admin: 06/02/18 21:17 Dose: 10 mg Vitamin B Complex/Vit C/Folic Acid (Nephro-Courtney) 1 tab PO 0800 [facility] Last Admin: 06/03/18 09:00 Dose: 1 tab - Labs Labs: 06/03/18 06:11 06/03/18 06:11 PT 15.0 SECONDS (9.7-12.2) H 05/31/18 11:34 INR 1.4 05/31/18 11:34 APTT 210 SECONDS (21-34) H* 05/31/18 11:34 - Constitutional Appears: Non-toxic - Head Exam Head Exam: NORMAL INSPECTION - Eye Exam Eye Exam: Conjunctival injection - ENT Exam ENT Exam: Mucous Membranes Moist - Neck Exam Neck Exam: Full ROM - Respiratory Exam Respiratory Exam: Decreased Breath Sounds - Cardiovascular Exam Cardiovascular Exam: Irregular Rhythm - GI/Abdominal Exam GI & Abdominal Exam: Normal Bowel Sounds - Rectal Exam Rectal Exam: NORMAL INSPECTION - Extremities Exam Additional comments: bilateral amputation - Back Exam Back Exam: CVA tenderness (L) - Neurological Exam Neurological Exam: Awake, Oriented x3 - Psychiatric Exam Psychiatric exam: Normal Mood - Skin Skin Exam: Pallor Assessment and Plan - Assessment and Plan (Free Text) Assessment: chf hypoxeamia copd dmid cad aneamia esrf Plan: cont as per orders
[2018-06-04] MEDS: HYDROmorphone 1 mg/ml ISec IVP PRN ×4 (01:55→20:02)
[2018-06-04] MEDS: Piperacill/Tazo 2.25gm in Dex 2.25 GM/50 ML BAG IVPB SCH ×3 (04:14→21:31)
[2018-06-04 06:27] LABS: BASO # 0.1 K/uL (0.0-0.2); BASO % 0.9 % (0.0-2.0); EOS # 0.4 K/uL (0.0-0.7); EOS % 4.9 % (0.0-4.0); HEMOGLOBIN 9.4 g/dL (12.0-18.0); LYMPH # 1.1 K/uL (1.0-4.3); LYMPH % 15.2 % (20.0-40.0); MEAN CELL VOLUME 95.8 fL (80.0-94.0); MEAN CORPUSCULAR HEMOGLOBIN 30.8 pg (27.0-31.0); MEAN CORPUSCULAR HGB CONC 32.2 g/dL (33.0-37.0); MEAN PLATELET VOLUME 9.6 fL (7.2-11.7); MONO # 0.9 K/uL (0.0-0.8); MONO % 11.9 % (0.0-10.0); NEUT # 4.8 K/uL (1.8-7.0); NEUT % 67.1 % (50.0-75.0); RBC 3.05 Mil/uL (4.40-5.90); RED CELL DISTRIBUTION WIDTH 18.8 % (11.5-14.5); WHITE BLOOD COUNT 7.2 K/uL (4.8-10.8)
[2018-06-04 07:33] LABS: ALB/GLOB RATIO 1.1 (1.0-2.1); ALBUMIN 3.5 g/dL (3.5-5.0); CALCIUM 8.8 mg/dl (8.6-10.4)
[2018-06-04] MEDS: Multivitamin Vitamin B Complex (Nephro-Vite) Tab PO SCH (08:16)
[2018-06-04] MEDS: Ranolazine 500 mg Extended Release Tablets PO SCH ×2 (09:46→18:00)
[2018-06-04] MEDS: Potassium Chloride 20 mEq ER Tab PO SCH (09:46)
[2018-06-04] MEDS: Pantoprazole 20 mg EC Tab PO SCH (09:46)
--- NOTE | 2018-06-04 11:27 | CP.PCM.PN ---
Subjective - Date & Time of Evaluation Date of Evaluation: 06/04/18 Time of Evaluation: 11:23 - Subjective Subjective: Events reviewed. Objective - Vital Signs/Intake and Output Vital Signs (last 24 hours): Temp Pulse Resp BP Pulse Ox 97.7 F 51 L 16 158/61 H 98 06/04/18 08:00 06/04/18 10:29 06/04/18 08:00 06/04/18 10:28 06/04/18 08:00 Intake and Output: 06/04/18 06/04/18 06:59 18:59 Intake Total 500 Balance 500 - Medications Medications: Current Medications Amiodarone HCl (Cordarone) 200 mg PO DAILY [facility] Last Admin: 06/03/18 09:10 Dose: Not Given Amlodipine Besylate (Norvasc) 5 mg PO DAILY [facility] Last Admin: 06/04/18 10:29 Dose: Not Given Apixaban (Eliquis) 2.5 mg PO BID [facility] Last Admin: 06/04/18 09:45 Dose: 2.5 mg Aspirin (Aspirin Chewable) 81 mg PO DAILY [facility] Last Admin: 06/04/18 09:44 Dose: 81 mg Calcitriol (Rocaltrol) 0.25 mcg PO TTS [facility] Last Admin: 06/03/18 09:12 Dose: 0.25 mcg Carvedilol (Coreg) 12.5 mg PO BID [facility] Last Admin: 06/04/18 10:28 Dose: Not Given Clopidogrel Bisulfate (Plavix) 75 mg PO DAILY [facility] Last Admin: 06/04/18 09:46 Dose: 75 mg Diltiazem HCl (Cardizem) 30 mg PO QID [facility] Last Admin: 06/04/18 09:55 Dose: Not Given Docusate Sodium (Colace) 100 mg PO BID PRN PRN Reason: Constipation Epoetin Tom (Procrit) 10,000 unit IV TTS [facility] Last Admin: 06/03/18 12:05 Dose: 10,000 unit Hydromorphone HCl (Dilaudid) 1 mg IVP Q4H PRN PRN Reason: Pain, moderate (4-7) Last Admin: 06/04/18 09:45 Dose: 1 mg Piperacillin Sod/Tazobactam Sod (Zosyn 2.25 Gm Iv Premix) 2.25 gm in 50 mls @ 100 mls/hr IVPB Q8H [facility]; Protocol Last Admin: 06/04/18 04:14 Dose: 100 mls/hr Insulin Aspart (Novolog) 0 unit SC ACHS [facility]; Protocol Insulin Glargine (Lantus) 8 unit SC [facility] Isosorbide Mononitrate (Imdur) 60 mg PO DAILY [facility] Last Admin: 06/04/18 09:45 Dose: 60 mg Levetiracetam (Keppra) 500 mg PO BID [facility] Last Admin: 06/04/18 09:46 Dose: 500 mg Losartan Potassium (Cozaar) 100 mg PO DAILY [facility] Last Admin: 06/03/18 09:10 Dose: Not Given Montelukast Sodium (Singulair) 10 mg PO HS [facility] Last Admin: 06/03/18 21:28 Dose: 10 mg Pantoprazole Sodium (Protonix Ec Tab) 20 mg PO DAILY [facility] Last Admin: 06/04/18 09:46 Dose: 20 mg Potassium Chloride (K-Dur 20 Meq Er Tab) 40 meq PO DAILY [facility] Last Admin: 06/04/18 09:46 Dose: 40 meq Ranolazine (Ranexa) 500 mg PO BID [facility] Last Admin: 06/04/18 09:46 Dose: 500 mg Rosuvastatin Calcium (Crestor) 10 mg PO HS [facility] Last Admin: 06/03/18 21:27 Dose: 10 mg Vitamin B Complex/Vit C/Folic Acid (Nephro-Courtney) 1 tab PO 0800 [facility] Last Admin: 06/04/18 08:16 Dose: 1 tab - Labs Labs: 06/04/18 06:15 06/04/18 06:15 PT 15.0 SECONDS (9.7-12.2) H 05/31/18 11:34 INR 1.4 05/31/18 11:34 APTT 210 SECONDS (21-34) H* 05/31/18 11:34 Assessment and Plan - Assessment and Plan (Free Text) Assessment: Acute on chronic mild-mod systolic and diastolic dysfunction - maintain fluid status with regular HD - cont coreg - cont BIPAP Chronic recurrent CHEST PAIN - chronic recurrent: likely musculoskeletal - minimal troponin in past is c/w ESRD and possibly microvascular disease and demand ischemia - known severe CAD: and small residual [place] vessel CAD with failed bypass grafts: too small for any additional PCI - cont ranexa and imdur ESRD - cont HD - monitor lytes and replace as needed HTN - labile, improved - cont current meds and titrate as tolerated - coreg 25 BID, norvasc 10, losartan 100, DM - uncontrolled - probable gastroparesis - PPI and zofran Aflutter - paroxysmal - now NSR - HX fo clot around permacath: [employer] in future after complete anticoagulation course. - cont coreg and cardizem for now - ON amiodarone: monitor for zaida Hypercoagulable state - hx of perm catheter thrombus - recent PE at [facility] 05/2018 - HIT - I would increase elaquis 5mg po BID, as he has failed on 2.5 BID and pharmacokinetics suggest in dialysis 2.5 will not provide adequate anticoagulation especially in the setting of intra cardiac thrombus and pulmonary embolism - Cont ASA 81
[2018-06-04] MEDS: (Novolog) Insulin Aspart, Recombinant 100 u/ml 10 ml vial SC SCH ×3 (11:56→21:27)
--- NOTE | 2018-06-04 12:18 | CP.PCM.PN ---
Subjective - Date & Time of Evaluation Date of Evaluation: 06/04/18 Time of Evaluation: 12:15 - Subjective Subjective: feels beter less sob less chest pain jhad transfusion bs still hi Objective - Vital Signs/Intake and Output Vital Signs (last 24 hours): Temp Pulse Resp BP Pulse Ox 97.7 F 51 L 16 158/61 H 98 06/04/18 08:00 06/04/18 10:29 06/04/18 08:00 06/04/18 10:28 06/04/18 08:00 Intake and Output: 06/04/18 06/04/18 06:59 18:59 Intake Total 500 Balance 500 - Medications Medications: Current Medications Amiodarone HCl (Cordarone) 200 mg PO DAILY [facility] Last Admin: 06/04/18 11:52 Dose: Not Given Amlodipine Besylate (Norvasc) 5 mg PO DAILY [facility] Last Admin: 06/04/18 10:29 Dose: Not Given Apixaban (Eliquis) 2.5 mg PO BID [facility] Last Admin: 06/04/18 09:45 Dose: 2.5 mg Aspirin (Aspirin Chewable) 81 mg PO DAILY [facility] Last Admin: 06/04/18 09:44 Dose: 81 mg Calcitriol (Rocaltrol) 0.25 mcg PO TTS [facility] Last Admin: 06/03/18 09:12 Dose: 0.25 mcg Carvedilol (Coreg) 12.5 mg PO BID [facility] Last Admin: 06/04/18 10:28 Dose: Not Given Clopidogrel Bisulfate (Plavix) 75 mg PO DAILY [facility] Last Admin: 06/04/18 09:46 Dose: 75 mg Diltiazem HCl (Cardizem) 30 mg PO QID [facility] Last Admin: 06/04/18 09:55 Dose: Not Given Docusate Sodium (Colace) 100 mg PO BID PRN PRN Reason: Constipation Epoetin Tom (Procrit) 10,000 unit IV TTS [facility] Last Admin: 06/03/18 12:05 Dose: 10,000 unit Hydromorphone HCl (Dilaudid) 1 mg IVP Q4H PRN PRN Reason: Pain, moderate (4-7) Last Admin: 06/04/18 09:45 Dose: 1 mg Piperacillin Sod/Tazobactam Sod (Zosyn 2.25 Gm Iv Premix) 2.25 gm in 50 mls @ 100 mls/hr IVPB Q8H [facility]; Protocol Last Admin: 06/04/18 04:14 Dose: 100 mls/hr Insulin Aspart (Novolog) 0 unit SC [facility]; Protocol Last Admin: 06/04/18 11:56 Dose: 3 units Insulin Detemir (Levemir) [address] [facility] Isosorbide Mononitrate (Imdur) 60 mg PO DAILY [facility] Last Admin: 06/04/18 09:45 Dose: 60 mg Levetiracetam (Keppra) 500 mg PO BID [facility] Last Admin: 06/04/18 09:46 Dose: 500 mg Losartan Potassium (Cozaar) 100 mg PO DAILY [facility] Last Admin: 06/04/18 11:52 Dose: Not Given Montelukast Sodium (Singulair) [address] [facility] Last Admin: 06/03/18 21:28 Dose: 10 mg Pantoprazole Sodium (Protonix Ec Tab) 20 mg PO DAILY [facility] Last Admin: 06/04/18 09:46 Dose: 20 mg Potassium Chloride (K-Dur 20 Meq Er Tab) 40 meq PO DAILY [facility] Last Admin: 06/04/18 09:46 Dose: 40 meq Ranolazine (Ranexa) 500 mg PO BID [facility] Last Admin: 06/04/18 09:46 Dose: 500 mg Rosuvastatin Calcium (Crestor) [address] [facility] Last Admin: 06/03/18 21:27 Dose: 10 mg Vitamin B Complex/Vit C/Folic Acid (Nephro-Courtney) 1 tab PO 0800 [facility] Last Admin: 06/04/18 08:16 Dose: 1 tab - Labs Labs: 06/04/18 06:15 06/04/18 06:15 PT 15.0 SECONDS (9.7-12.2) H 05/31/18 11:34 INR 1.4 05/31/18 11:34 APTT 210 SECONDS (21-34) H* 05/31/18 11:34 - Constitutional Appears: Non-toxic - Head Exam Head Exam: NORMAL INSPECTION - Eye Exam Eye Exam: Conjunctival injection - ENT Exam ENT Exam: Mucous Membranes Dry - Neck Exam Neck Exam: Full ROM - Respiratory Exam Respiratory Exam: Decreased Breath Sounds, NORMAL BREATHING PATTERN - Cardiovascular Exam Cardiovascular Exam: +S1, +S2, +S4 - GI/Abdominal Exam GI & Abdominal Exam: Normal Bowel Sounds - Rectal Exam Rectal Exam: NORMAL INSPECTION - Extremities Exam Additional comments: bilateral amputation - Back Exam Back Exam: CVA tenderness (L) - Neurological Exam Neurological Exam: Awake, Oriented x3 - Psychiatric Exam Psychiatric exam: Normal Affect - Skin Skin Exam: Pallor Assessment and Plan - Assessment and Plan (Free Text) Assessment: chf cad dmid esrf Plan: increase insulin my plan for d/c tomorow
--- NOTE | 2018-06-04 15:10 | CP.PCM.PN ---
Subjective - Date & Time of Evaluation Date of Evaluation: 06/04/18 Time of Evaluation: 15:10 - Subjective Subjective: Nephrology Consultation Note: Assessment:Stable HTN emergency with Pulmonary edema , fluid overload acute respi failure chronic chest pain, A flutter Diabetic chronic Kidney Disease (E11.22) Hypertensive Chronic Kidney Disease (I12.0) End stage renal disease (N18.6) dependence on hemodialysis (Z99.2) (TTS) via AVF Anemia (D64.9), Hyperphosphatemia (E83.39), Secondary Hyperparathyroidism (E21.1), HTN (I12.0) CAD s/p CABG, diastolic CHF, parox A flutter/fib, intra-cardiac thrombus, hx of Heparin induced thrombocytopenia, hx of seizure, blindness Plan: plan for dialysis tomorrow as per TTS schedule Continue with Nephrovite 1 tab/day. started HANNAH with HD . PRBC As needed for anemia, ordered for 1 unit PRBC 06/03/18. last H b9.4 Continue with phos binders home dose BP control with meds as ordered. on ARB as losartan Glycemic control, Dialysis consistent diet Further work up/management as per primary team Dose meds/antibiotics for ESRD status. Avoid fleets enema/magnesium based laxatives. cardiology following Thanks for allowing me to participate in care of your patient. Will follow patient with you. Please call if any Qs. had d/w team Dr Eric Temple Office: [phone] CC: chest pain, SOB reason for consult: ESRD HPI: Pt is a 37 y/o transgender with hx of ESRD on hemodialysis (TTS) via p ermacath, chronic anemia, hyperphosphatemia, secondary hyperparathyroidism, Diabetes Mellitus, hypertension, CAD s/p CABG, diastolic CHF, pA flutter/fib, intra-cardiac thrombus, Heparin induced thrombocytopenia in past presented with complaints of SOB and chronic chest pain, he was admitted to ICU due to HTN emergency with pulm edema ROS: All other negative except as in HPI. now better improved chronic chest pain, no GI symptoms. improved SOB Physical Examination: General Appearance: in no acute respiratory distress, co-operative .better appearing Vitals reviewed and noted as below Head; Atraumatic, normocephalic ENT: no ulcers no thrush. Tongue is midline. Oropharynx: no rash or ulcers. EYES: Pt is blind both eyes Neck; supple no lymphadenopathy, no thyromegaly or bruit Lungs: Improved respiratory rate/effort. Breath sounds bilateral b/l clear today Heart: Normal rate. s1s2 normal. No rub or gallop. Extremities: no edema. No varicose veins. has b/l BKA. Neurological: Patient is awake follow commands no focal deficit Skin: Warm and dry. Normal turgor. No rash. Palpitation: Normal elasticity for age Abdomen: Abdomen is soft. Bowel sounds +. There is no abdominal tenderness, no guarding/rigidity or organomegaly Psych: limited insight and has normal affect/mood MSK: no joint tenderness or swelling. Digits and nails normal, no deformity : kidney or bladder not palpable Access: permacath Labs/imaging reviewed. Past medical history, past surgical history, family history, social history, allergy reviewed and noted as below Family Hx: no hx of CKD. Non contributory Objective - Vital Signs/Intake and Output Vital Signs (last 24 hours): Temp Pulse Resp BP Pulse Ox 97.7 F 51 L 16 158/61 H 98 06/04/18 08:00 06/04/18 10:29 06/04/18 08:00 06/04/18 10:28 06/04/18 08:00 Intake and Output: 06/04/18 06/04/18 06:59 18:59 Intake Total 500 Balance 500 - Medications Medications: Current Medications Amiodarone HCl (Cordarone) 200 mg PO DAILY [facility] Last Admin: 06/04/18 11:52 Dose: Not Given Amlodipine Besylate (Norvasc) 5 mg PO DAILY [facility] Last Admin: 06/04/18 10:29 Dose: Not Given Apixaban (Eliquis) 2.5 mg PO BID [facility] Last Admin: 06/04/18 09:45 Dose: 2.5 mg Aspirin (Aspirin Chewable) 81 mg PO DAILY [facility] Last Admin: 06/04/18 09:44 Dose: 81 mg Calcitriol (Rocaltrol) 0.25 mcg PO TTS [facility] Last Admin: 06/03/18 09:12 Dose: 0.25 mcg Carvedilol (Coreg) 12.5 mg PO BID [facility] Last Admin: 06/04/18 10:28 Dose: Not Given Clopidogrel Bisulfate (Plavix) 75 mg PO DAILY [facility] Last Admin: 06/04/18 09:46 Dose: 75 mg Diltiazem HCl (Cardizem) 30 mg PO QID [facility] Last Admin: 06/04/18 14:58 Dose: 30 mg Docusate Sodium (Colace) 100 mg PO BID PRN PRN Reason: Constipation Epoetin Tom (Procrit) 10,000 unit IV TTS [facility] Last Admin: 06/03/18 12:05 Dose: 10,000 unit Hydromorphone HCl (Dilaudid) 1 mg IVP Q4H PRN PRN Reason: Pain, moderate (4-7) Last Admin: 06/04/18 14:53 Dose: 1 mg Piperacillin Sod/Tazobactam Sod (Zosyn 2.25 Gm Iv Premix) 2.25 gm in 50 mls @ 100 mls/hr IVPB Q8H [facility]; Protocol Last Admin: 06/04/18 12:31 Dose: 100 mls/hr Insulin Aspart (Novolog) 0 unit SC [facility]; Protocol Last Admin: 06/04/18 11:56 Dose: 3 units Insulin Detemir (Levemir) 10 unit SC [facility] Isosorbide Mononitrate (Imdur) 60 mg PO DAILY [facility] Last Admin: 06/04/18 09:45 Dose: 60 mg Levetiracetam (Keppra) 500 mg PO BID [facility] Last Admin: 06/04/18 09:46 Dose: 500 mg Losartan Potassium (Cozaar) 100 mg PO DAILY [facility] Last Admin: 06/04/18 11:52 Dose: Not Given Montelukast Sodium (Singulair) 10 mg PO [facility] Last Admin: 06/03/18 21:28 Dose: 10 mg Pantoprazole Sodium (Protonix Ec Tab) 20 mg PO DAILY [facility] Last Admin: 06/04/18 09:46 Dose: 20 mg Potassium Chloride (K-Dur 20 Meq Er Tab) 40 meq PO DAILY [facility] Last Admin: 06/04/18 09:46 Dose: 40 meq Ranolazine (Ranexa) 500 mg PO BID [facility] Last Admin: 06/04/18 09:46 Dose: 500 mg Rosuvastatin Calcium (Crestor) 10 mg PO HS [facility] Last Admin: 06/03/18 21:27 Dose: 10 mg Vitamin B Complex/Vit C/Folic Acid (Nephro-Courtney) 1 tab PO 0800 [facility] Last Admin: 06/04/18 08:16 Dose: 1 tab - Labs Labs: 06/04/18 06:15 06/04/18 06:15 PT 15.0 SECONDS (9.7-12.2) H 05/31/18 11:34 INR 1.4 05/31/18 11:34 APTT 210 SECONDS (21-34) H* 05/31/18 11:34
[2018-06-04] MEDS ORDERED: (Lantus) Insulin Glargine, Recombinant SC SCH (22:00)
[2018-06-04] MEDS ORDERED: Insulin Detemir 100 units/ml Vial (Levemir) SC SCH (22:00)
[2018-06-05] MEDS: HYDROmorphone 1 mg/ml ISec IVP PRN ×3 (00:03→12:55)
[2018-06-05] MEDS: Piperacill/Tazo 2.25gm in Dex 2.25 GM/50 ML BAG IVPB SCH ×2 (04:01→13:00)
[2018-06-05 06:01] LABS: BASO % 0.6 % (0.0-2.0); EOS # 0.4 K/uL (0.0-0.7); HEMOGLOBIN 9.5 g/dL (12.0-18.0); LYMPH # 1.2 K/uL (1.0-4.3); LYMPH % 17.3 % (20.0-40.0); MEAN CELL VOLUME 95.5 fL (80.0-94.0); MEAN CORPUSCULAR HEMOGLOBIN 30.5 pg (27.0-31.0); MEAN PLATELET VOLUME 9.8 fL (7.2-11.7); MONO # 0.8 K/uL (0.0-0.8); MONO % 11.2 % (0.0-10.0); NEUT # 4.5 K/uL (1.8-7.0); NEUT % 64.9 % (50.0-75.0); RBC 3.11 Mil/uL (4.40-5.90); RED CELL DISTRIBUTION WIDTH 18.4 % (11.5-14.5); WHITE BLOOD COUNT 6.9 K/uL (4.8-10.8)
[2018-06-05 06:29] LABS: ALB/GLOB RATIO 1.1 (1.0-2.1); ALBUMIN 3.6 g/dL (3.5-5.0); CALCIUM 9.1 mg/dl (8.6-10.4)
[2018-06-05] MEDS: Multivitamin Vitamin B Complex (Nephro-Vite) Tab PO SCH (08:08)
[2018-06-05] MEDS: (Novolog) Insulin Aspart, Recombinant 100 u/ml 10 ml vial SC SCH ×3 (08:09→17:00)
[2018-06-05 09:44] VITALS: PULSE 69
[2018-06-05 09:45] VITALS: O2SAT 100
[2018-06-05] MEDS: Epoetin Alfa 10,000 unit/ml Dialysis IV SCH (11:19)
[2018-06-05] MEDS: Potassium Chloride 20 mEq ER Tab PO SCH (12:54)
[2018-06-05] MEDS: Ranolazine 500 mg Extended Release Tablets PO SCH (12:59)
[2018-06-05] MEDS: Pantoprazole 20 mg EC Tab PO SCH (13:02)
--- NOTE | 2018-06-05 14:29 | CP.PCM.PN ---
Subjective - Date & Time of Evaluation Date of Evaluation: 06/05/18 Time of Evaluation: 13:00 - Subjective Subjective: Patient seen today after HD denies any chest pain, abdominal pain, N/V, tolerating diet labs and VSS reviewed Objective - Vital Signs/Intake and Output Vital Signs (last 24 hours): Temp Pulse Resp BP Pulse Ox 97.8 F 69 16 127/64 100 06/05/18 09:10 06/05/18 11:19 06/05/18 09:10 06/05/18 13:05 06/05/18 09:10 Intake and Output: 06/05/18 06/05/18 06:59 18:59 Intake Total 170 120 Balance 170 120 - Medications Medications: Current Medications Amiodarone HCl (Cordarone) 200 mg PO DAILY [facility] Last Admin: 06/05/18 12:58 Dose: 200 mg Amlodipine Besylate (Norvasc) 5 mg PO DAILY [facility] Last Admin: 06/05/18 13:05 Dose: 5 mg Apixaban (Eliquis) 2.5 mg PO BID [facility] Last Admin: 06/05/18 13:00 Dose: 2.5 mg Aspirin (Aspirin Chewable) 81 mg PO DAILY [facility] Last Admin: 06/05/18 12:57 Dose: 81 mg Calcitriol (Rocaltrol) 0.25 mcg PO TTS [facility] Last Admin: 06/05/18 13:00 Dose: 0.25 mcg Carvedilol (Coreg) 12.5 mg PO BID [facility] Last Admin: 06/05/18 13:05 Dose: 12.5 mg Clopidogrel Bisulfate (Plavix) 75 mg PO DAILY [facility] Last Admin: 06/05/18 12:57 Dose: 75 mg Diltiazem HCl (Cardizem) 30 mg PO QID [facility] Last Admin: 06/05/18 13:58 Dose: Not Given Docusate Sodium (Colace) 100 mg PO BID PRN PRN Reason: Constipation Epoetin Tom (Procrit) 10,000 unit IV TTS [facility] Last Admin: 06/05/18 11:19 Dose: 10,000 unit Piperacillin Sod/Tazobactam Sod (Zosyn 2.25 Gm Iv Premix) 2.25 gm in 50 mls @ 100 mls/hr IVPB Q8H [facility]; Protocol Last Admin: 06/05/18 13:00 Dose: 100 mls/hr Insulin Aspart (Novolog) 0 unit SC [facility]; Protocol Last Admin: 06/05/18 12:56 Dose: Not Given Insulin Detemir (Levemir) 10 unit SC [facility] Last Admin: 06/04/18 21:30 Dose: 10 unit Isosorbide Mononitrate (Imdur) 60 mg PO DAILY [facility] Last Admin: 06/05/18 13:05 Dose: 60 mg Levetiracetam (Keppra) 500 mg PO BID [facility] Last Admin: 06/05/18 12:56 Dose: 500 mg Losartan Potassium (Cozaar) 100 mg PO DAILY [facility] Last Admin: 06/05/18 13:05 Dose: 100 mg Montelukast Sodium (Singulair) 10 mg PO [facility] Last Admin: 06/04/18 21:20 Dose: 10 mg Pantoprazole Sodium (Protonix Ec Tab) 20 mg PO DAILY [facility] Last Admin: 06/05/18 13:02 Dose: 20 mg Potassium Chloride (K-Dur 20 Meq Er Tab) 40 meq PO DAILY [facility] Last Admin: 06/05/18 12:54 Dose: Not Given Ranolazine (Ranexa) 500 mg PO BID [facility] Last Admin: 06/05/18 12:59 Dose: 500 mg Rosuvastatin Calcium (Crestor) 10 mg PO [facility] Last Admin: 06/04/18 21:20 Dose: 10 mg Vitamin B Complex/Vit C/Folic Acid (Nephro-Courtney) 1 tab PO 0800 [facility] Last Admin: 06/05/18 08:08 Dose: 1 tab - Labs Labs: 06/05/18 05:53 06/05/18 05:53 PT 15.0 SECONDS (9.7-12.2) H 05/31/18 11:34 INR 1.4 05/31/18 11:34 APTT 210 SECONDS (21-34) H* 05/31/18 11:34 Assessment and Plan - Assessment and Plan (Free Text) Assessment: A/P Patient with PMH of ESRD on HD (//Sat) via permacath, bilateral BKA, chronic anemia, DM, HTN, CAD s/p CABG, diastolic CHF, paroxysmal Aflutter/Afib, admitted with SOB and R sided chest pain, and missed HDx 1 day patient clinically improved with HD and hemodianamically stable Patient just completed HD today and vss stable and no events reported on Monitor D/w Jen cleared for discharge home today and f/u HD outpatient SW will arrange transportation and contact HD center to resume HD
[2018-06-05 14:57] VITALS: BP 119/69; RESP 15; TEMP 97.7
--- NOTE | 2018-06-05 15:12 | CP.PCM.PN ---
Subjective - Date & Time of Evaluation Date of Evaluation: 06/05/18 Time of Evaluation: 15:11 - Subjective Subjective: Nephrology Consultation Note: Assessment:Stable HTN emergency with Pulmonary edema , fluid overload acute respi failure chronic chest pain, A flutter Diabetic chronic Kidney Disease (E11.22) Hypertensive Chronic Kidney Disease (I12.0) End stage renal disease (N18.6) dependence on hemodialysis (Z99.2) (TTS) via AVF Anemia (D64.9), Hyperphosphatemia (E83.39), Secondary Hyperparathyroidism (E21.1), HTN (I12.0) CAD s/p CABG, diastolic CHF, parox A flutter/fib, intra-cardiac thrombus, hx of Heparin induced thrombocytopenia, hx of seizure, blindness Plan: plan for dialysis today as per TTS schedule Continue with Nephrovite 1 tab/day. started [facility]ANNA[facility] with HD . PRBC As needed for anemia, ordered for 1 unit PRBC 06/03/18. last Hb 9.4 Continue with phos binders home dose BP control with meds as ordered. on ARB as losartan Glycemic control, Dialysis consistent diet Further work up/management as per primary team Dose meds/antibiotics for ESRD status. Avoid fleets enema/magnesium based laxatives. cardiology following pt stable for d/c from renal perspective when planned Thanks for allowing me to participate in care of your patient. Will follow patient with you. Please call if any Qs. had d/w team Dr Eric Temple Office: [phone] reason for consult: ESRD HPI: Pt is a 37 y/o transgender with hx of ESRD on hemodialysis (TTS) via permacath, chronic anemia, hyperphosphatemia, secondary hyperparathyroidism, Diabetes Mellitus, hypertension, CAD s/p CABG, diastolic CHF, pA flutter/fib, intra-cardiac thrombus, Heparin induced thrombocytopenia in past presented with complaints of SOB and chronic chest pain, he was admitted to ICU due to HTN emergency with pulm edema ROS: All other negative except as in HPI. now better improved chronic chest pain, no GI symptoms. denies SOB Physical Examination: General Appearance: in no acute respiratory distress, co-operative .better appearing Vitals reviewed and noted as below Head; Atraumatic, normocephalic ENT: no ulcers no thrush. Tongue is midline. Oropharynx: no rash or ulcers. EYES: Pt is blind both eyes Neck; supple no lymphadenopathy, no thyromegaly or bruit Lungs: Improved respiratory rate/effort. Breath sounds bilateral b/l clear today Heart: Normal rate. s1s2 normal. No rub or gallop. Extremities: no edema. No varicose veins. has b/l BKA. Neurological: Patient is awake follow commands no focal deficit Skin: Warm and dry. Normal turgor. No rash. Palpitation: Normal elasticity for age Abdomen: Abdomen is soft. Bowel sounds +. There is no abdominal tenderness, no guarding/rigidity or organomegaly Psych: limited insight and has normal affect/mood MSK: no joint tenderness or swelling. Digits and nails normal, no deformity : kidney or bladder not palpable Access: permacath Labs/imaging reviewed. Past medical history, past surgical history, family history, social history, allergy reviewed and noted as below Family Hx: no hx of CKD. Non contributory Objective - Vital Signs/Intake and Output Vital Signs (last 24 hours): Temp Pulse Resp BP Pulse Ox 97.7 F 69 15 127/64 100 06/05/18 12:40 06/05/18 12:40 06/05/18 12:40 06/05/18 13:05 06/05/18 12:40 Intake and Output: 06/05/18 06/05/18 06:59 18:59 Intake Total 170 120 Balance 170 120 - Medications Medications: Current Medications Amiodarone HCl (Cordarone) 200 mg PO DAILY [facility] Last Admin: 06/05/18 12:58 Dose: 200 mg Amlodipine Besylate (Norvasc) 5 mg PO DAILY [facility] Last Admin: 06/05/18 13:05 Dose: 5 mg Apixaban (Eliquis) 2.5 mg PO BID [facility] Last Admin: 06/05/18 13:00 Dose: 2.5 mg Aspirin (Aspirin Chewable) 81 mg PO DAILY [facility] Last Admin: 06/05/18 12:57 Dose: 81 mg Calcitriol (Rocaltrol) 0.25 mcg PO TTS [facility] Last Admin: 06/05/18 13:00 Dose: 0.25 mcg Carvedilol (Coreg) 12.5 mg PO BID [facility] Last Admin: 06/05/18 13:05 Dose: 12.5 mg Clopidogrel Bisulfate (Plavix) 75 mg PO DAILY [facility] Last Admin: 06/05/18 12:57 Dose: 75 mg Diltiazem HCl (Cardizem) 30 mg PO QID [facility] Last Admin: 06/05/18 13:58 Dose: Not Given Docusate Sodium (Colace) 100 mg PO BID PRN PRN Reason: Constipation Epoetin Tom (Procrit) 10,000 unit IV TTS [facility] Last Admin: 06/05/18 11:19 Dose: 10,000 unit Piperacillin Sod/Tazobactam Sod (Zosyn 2.25 Gm Iv Premix) 2.25 gm in 50 mls @ 100 mls/hr IVPB Q8H [facility]; Protocol Last Admin: 06/05/18 13:00 Dose: 100 mls/hr Insulin Aspart (Novolog) 0 unit SC [facility]; Protocol Last Admin: 06/05/18 12:56 Dose: Not Given Insulin Detemir (Levemir) 10 unit SC [facility] Last Admin: 06/04/18 21:30 Dose: 10 unit Isosorbide Mononitrate (Imdur) 60 mg PO DAILY [facility] Last Admin: 06/05/18 13:05 Dose: 60 mg Levetiracetam (Keppra) 500 mg PO BID [facility] Last Admin: 06/05/18 12:56 Dose: 500 mg Losartan Potassium (Cozaar) 100 mg PO DAILY [facility] Last Admin: 06/05/18 13:05 Dose: 100 mg Montelukast Sodium (Singulair) 10 mg PO HS [facility] Last Admin: 06/04/18 21:20 Dose: 10 mg Pantoprazole Sodium (Protonix Ec Tab) 20 mg PO DAILY [facility] Last Admin: 06/05/18 13:02 Dose: 20 mg Ranolazine (Ranexa) 500 mg PO BID [facility] Last Admin: 06/05/18 12:59 Dose: 500 mg Rosuvastatin Calcium (Crestor) 10 mg PO HS [facility] Last Admin: 06/04/18 21:20 Dose: 10 mg Vitamin B Complex/Vit C/Folic Acid (Nephro-Courtney) 1 tab PO 0800 [facility] Last Admin: 06/05/18 08:08 Dose: 1 tab - Labs Labs: 06/05/18 05:53 06/05/18 05:53 PT 15.0 SECONDS (9.7-12.2) H 05/31/18 11:34 INR 1.4 05/31/18 11:34 APTT 210 SECONDS (21-34) H* 05/31/18 11:34
--- NOTE | 2018-06-05 17:41 | CP.PCM.PN ---
Subjective - Date & Time of Evaluation Date of Evaluation: 06/05/18 Time of Evaluation: 17:38 - Subjective Subjective: pt is improving will go home today to cont as out pt Objective - Vital Signs/Intake and Output Vital Signs (last 24 hours): Temp Pulse Resp BP Pulse Ox 97.7 F 69 15 127/64 100 06/05/18 12:40 06/05/18 12:40 06/05/18 12:40 06/05/18 13:05 06/05/18 12:40 Intake and Output: 06/05/18 06/05/18 06:59 18:59 Intake Total 170 120 Balance 170 120 - Medications Medications: Current Medications Amiodarone HCl (Cordarone) 200 mg PO DAILY [facility] Last Admin: 06/05/18 12:58 Dose: 200 mg Amlodipine Besylate (Norvasc) 5 mg PO DAILY [facility] Last Admin: 06/05/18 13:05 Dose: 5 mg Apixaban (Eliquis) 2.5 mg PO BID [facility] Last Admin: 06/05/18 13:00 Dose: 2.5 mg Aspirin (Aspirin Chewable) 81 mg PO DAILY [facility] Last Admin: 06/05/18 12:57 Dose: 81 mg Calcitriol (Rocaltrol) 0.25 mcg PO TTS [facility] Last Admin: 06/05/18 13:00 Dose: 0.25 mcg Carvedilol (Coreg) 12.5 mg PO BID [facility] Last Admin: 06/05/18 13:05 Dose: 12.5 mg Clopidogrel Bisulfate (Plavix) 75 mg PO DAILY [facility] Last Admin: 06/05/18 12:57 Dose: 75 mg Diltiazem HCl (Cardizem) 30 mg PO QID [facility] Last Admin: 06/05/18 13:58 Dose: Not Given Docusate Sodium (Colace) 100 mg PO BID PRN PRN Reason: Constipation Epoetin Tom (Procrit) 10,000 unit IV TTS [facility] Last Admin: 06/05/18 11:19 Dose: 10,000 unit Piperacillin Sod/Tazobactam Sod (Zosyn 2.25 Gm Iv Premix) 2.25 gm in 50 mls @ 100 mls/hr IVPB Q8H [facility]; Protocol Last Admin: 06/05/18 13:00 Dose: 100 mls/hr Insulin Aspart (Novolog) 0 unit SC [facility]; Protocol Last Admin: 06/05/18 12:56 Dose: Not Given Insulin Detemir (Levemir) 10 unit SC [facility] Last Admin: 06/04/18 21:30 Dose: 10 unit Isosorbide Mononitrate (Imdur) 60 mg PO DAILY [facility] Last Admin: 06/05/18 13:05 Dose: 60 mg Levetiracetam (Keppra) 500 mg PO BID [facility] Last Admin: 06/05/18 12:56 Dose: 500 mg Losartan Potassium (Cozaar) 100 mg PO DAILY [facility] Last Admin: 06/05/18 13:05 Dose: 100 mg Montelukast Sodium (Singulair) 10 mg PO [facility] Last Admin: 06/04/18 21:20 Dose: 10 mg Pantoprazole Sodium (Protonix Ec Tab) 20 mg PO DAILY [facility] Last Admin: 06/05/18 13:02 Dose: 20 mg Ranolazine (Ranexa) 500 mg PO BID [facility] Last Admin: 06/05/18 12:59 Dose: 500 mg Rosuvastatin Calcium (Crestor) 10 mg PO [facility] Last Admin: 06/04/18 21:20 Dose: 10 mg Vitamin B Complex/Vit C/Folic Acid (Nephro-Courtney) 1 tab PO 0800 [facility] Last Admin: 06/05/18 08:08 Dose: 1 tab - Labs Labs: 06/05/18 05:53 06/05/18 05:53 PT 15.0 SECONDS (9.7-12.2) H 05/31/18 11:34 INR 1.4 05/31/18 11:34 APTT 210 SECONDS (21-34) H* 05/31/18 11:34 - Constitutional Appears: Non-toxic - Head Exam Head Exam: NORMAL INSPECTION - Eye Exam Eye Exam: Conjunctival injection - ENT Exam ENT Exam: Mucous Membranes Moist - Respiratory Exam Respiratory Exam: Clear to Ausculation Bilateral - Cardiovascular Exam Cardiovascular Exam: Irregular Rhythm, REGULAR RHYTHM - GI/Abdominal Exam GI & Abdominal Exam: Normal Bowel Sounds - Rectal Exam Rectal Exam: NORMAL INSPECTION - Exam Additional comments: klinfilter - Extremities Exam Additional comments: bilateral amputation - Back Exam Back Exam: NORMAL INSPECTION - Psychiatric Exam Psychiatric exam: Normal Affect - Skin Skin Exam: Normal Color, Pallor Assessment and Plan - Assessment and Plan (Free Text) Assessment: chf improved hypoxeamia imroved dmid esrf aneamia at fib Plan: will d/c and cxont all med
--- NOTE | 2018-06-06 17:13 | PCM.HF ---
Heart Failure Core Measure - Heart Failure Ejection Fraction: Less Than 40 % RAÚL Inhibitor Prescribed: No Contraindication/Reason for not providing: on arb Beta-Andrew Prescribed: Carvedilol Angiotensin II Receptor Andrew Prescribed: Yes AnticoagulationTherapy for Atrial Fibrillation/Atrialflutter: Yes Aldosterone Antagonist Prescribed: No Contraindication/Reason for not providing: esrd Hydralazine Nitrate Prescribed: No Contraindication/Reason for not providing: on calcium channel andrew for heart rate Implantable Cardioverter Defibrillator Therapy: No Contraindication/Reason for not providing: pt has a pacemake r Cardiac Resynchronization Therapy Prescribed: No Contraindication/Reason for not providing: pt has pacemaker - Follow up Will be discharged to: Home Follow Up Date (must be within 7 days from discharge): 06/10/18
--- NOTE | 2018-06-15 10:25 | DS ---
HISTORY OF PRESENT ILLNESS: The patient came into the emergency room on 05/31/2018 complaining of palpitation and chest pain. He has a history of CABG. He has a history of severe coronary artery disease, congestive heart failure, seizure. He is blind. HOSPITAL COURSE: When he came in, he was in arrhythmia and he was admitted for monitoring and treatment. His cardiac enzymes were ordered to be followed three times every 8 hours and his EKG. He was also having renal failure, on dialysis, so he was seen by Dr. Galindo. His hemoglobin was 9.9 and hematocrit 30.1. His sugar was 256 on admission and he has all his medications ordered, he has dialysis. He continued to be seen by Dr. Galindo group and myself, and he was seen also by Dr. Escobar. He was gradually improving, more stable with the medications until he was discharged. He has recurrent heart failure. He has more dialysis, and he was increased his Eliquis to twice a day for the thrombus in his pulmonary and his atrium. He had improved and was discharged on 06/05/2018 on his medications, to continue on dialysis as an outpatient, and follow up in my office when needed. FINAL DIAGNOSES: Coronary artery disease, status post coronary artery bypass graft; end-stage renal failure; diabetes mellitus, insulin dependent; anemia; atrial fibrillation. Sybil Li MD
== END 2018-06-05 18:32 | disposition home or self-care (01) | DRG 544 ==
LOC: C.ER 10:26 → C.9I 12:01
PROVIDERS: ADMIT Internal Medicine; ATTEND Internal Medicine
PROC: 5A1D70Z Performance of Urinary Filtration, Intermittent, Less than 6 Hours Per Day (ICD-10-PCS; principal; 2018-05-31)
PROC: 5A09457 Assistance with Respiratory Ventilation, 24-96 Consecutive Hours, Continuous Positive Airway Pressure (ICD-10-PCS; 2018-05-31)
DX: I13.2 Hypertensive heart and chronic kidney disease with heart failure and with stage 5 chronic kidney disease, or end stage renal disease (principal); J96.01 Acute respiratory failure with hypoxia; I50.33 Acute on chronic diastolic (congestive) heart failure; I47.2 Ventricular tachycardia; N18.6 End stage renal disease; E11.43 Type 2 diabetes mellitus with diabetic autonomic (poly)neuropathy; E11.22 Type 2 diabetes mellitus with diabetic chronic kidney disease; E11.65 Type 2 diabetes mellitus with hyperglycemia; J44.9 Chronic obstructive pulmonary disease, unspecified; E87.5 Hyperkalemia; K31.84 Gastroparesis; N25.81 Secondary hyperparathyroidism of renal origin; I16.1 Hypertensive emergency; I25.10 Atherosclerotic heart disease of native coronary artery without angina pectoris; I47.1 Supraventricular tachycardia; I48.0 Paroxysmal atrial fibrillation; H54.8 Legal blindness, as defined in USA; G89.29 Other chronic pain; D63.1 Anemia in chronic kidney disease; F64.9 Gender identity disorder, unspecified; E03.9 Hypothyroidism, unspecified; Q98.4 Klinefelter syndrome, unspecified; Z86.711 Personal history of pulmonary embolism; Z87.01 Personal history of pneumonia (recurrent); Z95.1 Presence of aortocoronary bypass graft; Z95.5 Presence of coronary angioplasty implant and graft; Z99.2 Dependence on renal dialysis; Z79.4 Long term (current) use of insulin; Z89.511 Acquired absence of right leg below knee; Z89.512 Acquired absence of left leg below knee

== ENCOUNTER 2018-06-10 12:36 | Inpatient (IN) | payer OTHER ==
[2018-06-10 12:36] VITALS: PULSE 110; BMI 18.8
--- NOTE | 2018-06-10 13:33 | C.PDOC ---
History Of Present Illness 37 year old male presents to the ED for evaluation of recurrent chest pain and shortness of breath since 4am today. Patient has multiple prior ER admissions, last dialysis was 3 days ago, and attempted to have dialysis today but he was sent to the ED. Denies fever, nausea, vomiting, and any other associated symptoms. w/PMHx of ESRD on HD (T,T,Sat), B/L BKA, chronic chest pain, Aflutter, CAD s/p CABG, diastolic CHF, hx of seizure, blindness BIBA for evaluation os SOB, left sided chest pain gradually developed since early AM. PMHx: Missed HD, hyperkaelamia, fluid overload SOB, chronic chest pain, A flutter Diabetic chronic Kidney Disease (E11.22) Hypertensive Chronic Kidney Disease (I12.0) End stage renal disease (N18.6) dependence on hemodialysis (Z99.2) (TTS) via AVF Anemia (D64.9), Hyperphosphatemia (E83.39), Secondary Hyperparathyroidism (E21.1), HTN (I12.0) CAD s/p CABG, diastolic CHF, parox A flutter/fib, intra-cardiac thrombus, hx of Heparin induced thrombocytopenia, hx of seizure, blindness Time Seen by Provider: 06/10/18 13:10 Chief Complaint (Nursing): Chest Pain History Per: Patient History/Exam Limitations: no limitations Onset/Duration Of Symptoms: Hrs Current Symptoms Are (Timing): Still Present Past Medical History Reviewed: Historical Data, Nursing Documentation, Vital Signs Vital Signs: Last Vital Signs Temp 98.1 F 06/10/18 12:56 Pulse 65 06/10/18 13:16 Resp 17 06/10/18 13:16 BP 182/65 H 06/10/18 13:16 Pulse Ox 100 06/10/18 13:16 - Medical History PMH: Alzheimer's Disease, Anemia, Anxiety, Arthritis, Asthma, Atrial Fibrillation, Bronchitis, CAD, Cardia Arrhythmia, CHF, COPD, CVA, Depression, Diabetes, Deep Vein Thrombosis, Gastritis, Gastrointestinal Ulcer, Gall Bladder Disease, HTN, Hypercholesterolemia, Hypothyroidism, Pneumonia, End Stage Renal Disease, Chronic Kidney Disease, Seizures Denies: Hyperthyroidism, Kidney Stones, Sexually Transmitted Disease Surgical History: CABG (12/2009), Cholecystectomy (2011), Coronary Stent - [facility] (09/29/18) ABDOMINAL WALL SINOGRAM (12/31/13) ASSISTANCE WITH RESPIRATORY VENTILATION, 24-96 HRS, CPAP (05/31/18) C.A.T. SCAN OF ABDOMEN (10/31/13) CENTRAL VENOUS CATHETER PLACEMENT WITH GUIDANCE (02/10/15) CHANGE OTHER DEVICE IN TRUNK SUBCU/FASCIA, SENIOR PRINCIPAL PROCESS ENGINEER APPROACH (06/01/17) DILATE R ANT TIB ART W DRUG-ELUT INTRALUM, PERC (08/12/15) DILATION OF LEFT FEMORAL ARTERY, PERCUTANEOUS APPROACH (07/04/16) DILATION OF RIGHT FEMORAL ARTERY, PERCUTANEOUS APPROACH (08/12/15) DILATION OF RIGHT POPLITEAL ARTERY, PERCUTANEOUS APPROACH (08/12/15) DX ULTRASOUND-HEART (01/05/13) ENTERAL INFUSION OF CONCENTRATED NUT. SUBSTANCES (06/28/13) EXCIS DEBRIDE OF WOUND, INFECT, OR BURN (08/03/14) EXCISION OF STOMACH, ENDO, DIAGN (03/03/17) EXTIRPATION OF MATTER FROM L FEM ART, PERC APPROACH (07/04/16) EXTIRPATION OF MATTER FROM R FEM ART, PERC APPROACH (08/12/15) EXTIRPATION OF MATTER FROM R POPL ART, PERC APPROACH (08/12/15) FLUOROSCOPY OF L LOW EXTREM ART USING L OSM CONTRAST (08/12/15) FLUOROSCOPY OF R LOW EXTREM ART USING L OSM CONTRAST (08/12/15) FLUOROSCOPY OF RIGHT JUGULAR VEINS, GUIDANCE (06/01/17) FREE SKIN GRAFT NEC (08/03/14) HEAD SOFT TISS X-RAY NEC (04/15/13) HEMODIALYSIS (04/28/15) INCIS W REM OF FORIEGN BODY OR DEV FROM SKIN & SUBCUT TISSUE (08/08/13) INSERT INFUSION DEV IN R INT JUGULAR VEIN, PERC (06/01/17) INSERTION OF INFUSION DEV INTO R SUBCLAV VEIN, PERC APPROACH (01/19/16) INSERTION OF INFUSION DEV INTO SUP VENA CAVA, PERC APPROACH (01/07/18) INSPECTION OF UPPER INTESTINAL TRACT, ENDO (03/03/17) INTRODUCE OF OTH THROMBOLYTIC INTO PERIPH ART, PERC APPROACH (08/12/15) LAPAROSCOPIC CHOLECYSTECTOMY (09/21/13) LOC EXC LES METATAR/TAR (06/01/14) PACKED CELL TRANSFUSION (06/01/14) PERCUTAN LIVER ASPIRAT (12/31/13) PERFORMANCE OF URINARY FILTRATION, MULTIPLE (05/17/17) PERFORMANCE OF URINARY FILTRATION, SINGLE (12/18/16) SKIN & SUBQ INCISION NEC (10/24/14) TETANUS TOXOID ADMINIST (06/13/14) TRANSFUSE NONAUT RED BLOOD CELLS IN PERIPH VEIN, PERC (04/09/17) ULTRASONOGRAPHY OF RIGHT AND LEFT HEART (04/09/17) ULTRASONOGRAPHY OF SUPERIOR VENA CAVA, GUIDANCE (01/07/18) VENOUS CATHETERIZATION FOR RENAL DIALYSIS (08/08/13) VENOUS CATHETERIZATION NEC (04/30/13) Family History: States: Unknown Family Hx - Social History Hx Tobacco Use: No Hx Alcohol Use: No Hx Substance Use: No - Immunization History Hx Tetanus Toxoid Vaccination: Yes Hx Influenza Vaccination: Yes Hx Pneumococcal Vaccination: Yes Review Of Systems Except As Marked, All Systems Reviewed And Found Negative. Constitutional: Negative for: Fever, Chills Cardiovascular: Positive for: Chest Pain (recurrent.) Respiratory: Positive for: Shortness of Breath Gastrointestinal: Negative for: Nausea, Vomiting Physical Exam - Physical Exam Appears: Non-toxic, Other (sleeping. ) Skin: Normal Color, Warm, Dry Head: Atraumatic, Normacephalic Eye(s): bilateral: Normal Inspection Oral Mucosa: Moist Neck: Normal ROM, Supple Chest: Symmetrical, No Deformity Cardiovascular: Rhythm Regular, No Murmur Respiratory: Normal Breath Sounds, No Accessory Muscle Use, No Rales, No Rhonchi, Wheezing, Other (NARD) Gastrointestinal/Abdominal: Normal Exam, Soft Extremity: Normal ROM (x4), No Other (no edema. ) Pulses: Left Femoral: Normal, Right Femoral: Normal Neurological/Psych: Oriented x3, Normal Speech, Normal Motor, Normal Sensation, Normal Reflexes Gait: Steady ED Course And Treatment - Laboratory Results Result Diagrams: 06/10/18 14:07 06/10/18 14:07 ECG: Interpreted By Me ECG Rhythm: Sinus Rhythm ECG Interpretation: No Changes From Prior Interpretation Of ECG: TWI I, AVL, V5-6 Rate From EC O2 Sat by Pulse Oximetry: 100 (RA) Pulse Ox Interpretation: Normal - Other Rad CXR X-Ray: Viewed By Me, Read By Radiologist Interpretation: FINDINGS: LUNGS: Mild right basilar opacity, unchanged. PLEURA: No pneumothorax or pleural fluid seen. CARDIOVASCULAR: Mild cardiomegaly. CABG. Mild congestive change tunneled right central venous dialysis catheter. OSSEOUS STRUCTURES: No significant abnormalities. VISUALIZED UPPER ABDOMEN: Normal. OTHER FINDINGS: None. IMPRESSION: Opacity at right base common nonspecific and unchanged from prior. Mild pulmonary vascular congestion. Progress - Re-Evaluation Re-evaluation Note: 06/10/18 14:53 APPEARS COMFORTABLE, SLEEPING EASILY AROUSABLE. VSS. D/W DR BELL WILL ADMIT. CONSULT DR CHOWDHURY - Data Reviewed Data Reviewed: Lab, Diagnostic imaging, EKG, Old records - Critical Care Citical Care: Excluding Proc Time Critical Care Time: 90 minutes Medical Decision Making Medical Decision Making: Plan: --EKG --Blood sent. --Cardiology Consult. --CXR Progress/Update: 2:53pm: Spoke with Dr. Bell regarding case. Patient will be admitted. Disposition Counseled Patient/Family Regarding: Studies Performed, Diagnosis, Need For Followup - Disposition Disposition: HOSPITALIZED Disposition Time: 14:54 Condition: STABLE Forms: [employer] ([place]er) - Clinical Impression Clinical Impression: NSTEMI (non-ST elevated myocardial infarction), ESRD on hemodialysis - Scribe Statement The provider has reviewed the documentation as recorded by the Scribe (Karley Montes) Provider Attestation: All medical record entries made by the Scribe were at my direction and personally dictated by me. I have reviewed the chart and agree that the record accurately reflects my personal performance of the history, physical exam, medical decision making, and the department course for this patient. I have also personally directed, reviewed, and agree with the discharge instructions and disposition.
[2018-06-10 14:11] LABS: BASO # 0.1 K/uL (0.0-0.2); BASO % 1.1 % (0.0-2.0); EOS # 0.4 K/uL (0.0-0.7); EOS % 3.1 % (0.0-4.0); HEMOGLOBIN 10.7 g/dL (12.0-18.0); LYMPH % 16.3 % (20.0-40.0); MEAN CELL VOLUME 94.3 fL (80.0-94.0); MEAN CORPUSCULAR HEMOGLOBIN 30.6 pg (27.0-31.0); MEAN CORPUSCULAR HGB CONC 32.4 g/dL (33.0-37.0); MEAN PLATELET VOLUME 9.5 fL (7.2-11.7); MONO # 0.5 K/uL (0.0-0.8); MONO % 3.8 % (0.0-10.0); NEUT # 9.3 K/uL (1.8-7.0); NEUT % 75.7 % (50.0-75.0); RBC 3.5 Mil/uL (4.40-5.90); RED CELL DISTRIBUTION WIDTH 19.2 % (11.5-14.5); WHITE BLOOD COUNT 12.2 K/uL (4.8-10.8)
--- NOTE | 2018-06-10 14:43 | RAD ---
Date of service: 06/10/2018 PROCEDURE: CHEST RADIOGRAPH, 1 VIEW HISTORY: chest pain COMPARISON: 06/02/2018 FINDINGS: LUNGS: Mild right basilar opacity, unchanged. PLEURA: No pneumothorax or pleural fluid seen. CARDIOVASCULAR: Mild cardiomegaly. CABG. Mild congestive change tunneled right central venous dialysis catheter. OSSEOUS STRUCTURES: No significant abnormalities. VISUALIZED UPPER ABDOMEN: Normal. OTHER FINDINGS: None. IMPRESSION: Opacity at right base common nonspecific and unchanged from prior. Mild pulmonary vascular congestion.
[2018-06-10 14:49] LABS: ALB/GLOB RATIO 1.2 (1.0-2.1); CALCIUM 8.2 mg/dl (8.6-10.4)
[2018-06-10 15:05] LABS: TROPONIN I 0.41 ng/mL (0.00-0.120)
[2018-06-10] MEDS ORDERED: Ergocalciferol 50,000 Intl Units Cap PO SCH (20:15)
[2018-06-10] MEDS: HYDROmorphone 1 mg/ml ISec IVP PRN (21:03)
[2018-06-10] MEDS: (Novolin R) Insulin Human Regular 100 units/ml vial SC SCH (21:16)
[2018-06-10] MEDS ORDERED: (Lantus) Insulin Glargine, Recombinant SC SCH (22:00)
[2018-06-10 22:36] LABS: CK-MB 2.21 ng/mL (0.0-3.38); TROPONIN I 0.367 ng/mL (0.00-0.120)
[2018-06-11] MEDS: HYDROmorphone 1 mg/ml ISec IVP PRN ×4 (03:03→22:40)
[2018-06-11] MEDS: Albuterol-Ipratrop 3 mg / 0.5 (3 ml) UD IH SCH ×5 (03:25→20:55)
[2018-06-11] MEDS: Multivitamin Vitamin B Complex (Nephro-Vite) Tab PO SCH (08:43)
[2018-06-11] MEDS: (Novolin R) Insulin Human Regular 100 units/ml vial SC SCH ×4 (08:43→21:28)
[2018-06-11] MEDS: Ranolazine 500 mg Extended Release Tablets PO SCH ×2 (09:07→19:00)
[2018-06-11] MEDS: Pantoprazole 20 mg EC Tab PO SCH (09:09)
--- NOTE | 2018-06-11 12:30 | CP.PCM.HP ---
History of Present Illness - History of Present Illness History of Present Illness: pt came to ed for chest pain dificulty breathing missed his dialysis has secere cad Present on Admission - Present on Admission Any Indicators Present on Admission: Yes History of Uncontrolled Diabetes: Yes Review of Systems - Constitutional Constitutional: Fatigue - EENT Eyes: Decreased Night Vision, Loss of Vision Ears: As Per HPI Nose/Mouth/Throat: As Per HPI - Cardiovascular Cardiovascular: Chest Pain at Rest, Irregular Heart Rhythm, Orthopnea, Palpitations - Respiratory Respiratory: Dyspnea - Gastrointestinal Gastrointestinal: As Per HPI - Genitourinary Genitourinary: As Per HPI - Reproductive: Male Reproductive:Male: As Per HPI Additional comments: klinfilter - Musculoskeletal Additional comments: bilateral amputation - Integumentary Integumentary: As Per HPI - Neurological Neurological: Numbness - Psychiatric Psychiatric: Depression - Endocrine Endocrine: Fatigue, Palpitations - Hematologic/Lymphatic Hematologic: As Per HPI Past Patient History - Infectious Disease Hx of Infectious Diseases: None - Tetanus Immunizations Tetanus Immunization: >10 years Ago - Past Medical History & Family History Past Medical History?: Yes - Past Social History Smoking Status: Never Smoked - CARDIAC Hx Cardiac Disorders: Yes Hx Atrial Fibrillation: Yes Hx Cardia Arrhythmia: Yes Hx Congestive Heart Failure: Yes Hx Hypercholesterolemia: Yes Hx Hypertension: Yes - PULMONARY Hx Respiratory Disorders: Yes Hx Asthma: Yes Hx Bronchitis: Yes Hx Chronic Obstructive Pulmonary Disease (COPD): Yes Hx Pneumonia: Yes - NEUROLOGICAL Hx Neurological Disorder: Yes Hx Seizures: Yes - HEENT Hx HEENT Problems: Yes Hx Blind: Yes Hx Cataracts: Yes - RENAL Date of Last Dialysis Treatment: 06/07/18 - ENDOCRINE/METABOLIC Hx Endocrine Disorders: Yes Hx Diabetes Mellitus Type 2: Yes Hx Hyperthyroidism: No Hx Hypothyroidism: Yes - HEMATOLOGICAL/ONCOLOGICAL Hx Blood Disorders: Yes Hx Anemia: Yes - INTEGUMENTARY Hx Dermatological Problems: No - MUSCULOSKELETAL/RHEUMATOLOGICAL Hx Musculoskeletal Disorders: Yes Hx Arthritis: Yes Hx Falls: No Other/Comment: Left BKA right AKA - GASTROINTESTINAL Hx Gastrointestinal Disorders: Yes Hx Gall Bladder Disease: Yes Hx Gastritis: Yes - GENITOURINARY/GYNECOLOGICAL Hx Genitourinary Disorders: No Hx Sexually Transmitted Disorders: No - PSYCHIATRIC Hx Substance Use: No - SURGICAL HISTORY Hx Surgeries: Yes Hx Amputation: Yes Hx Cholecystectomy: Yes (2011) 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/2009) Hx Coronary Stent: Yes - ANESTHESIA Hx Anesthesia: Yes Hx Anesthesia Reactions: No Hx Malignant Hyperthermia: No Has any member of the family had a problem w/ anesthesia?: No Meds Allergies/Adverse Reactions: Allergies Allergy/AdvReac Type Severity Reaction Status Date / Time acetaminophen [From Percocet] Allergy RASH Verified 06/10/18 12:53 atenolol Allergy RASH Verified 06/10/18 12:53 digoxin Allergy RASH Verified 06/10/18 12:53 milk Allergy ITCHING Verified 06/10/18 12:53 morphine Allergy RASH Verified 06/10/18 12:53 oxycodone HCl [From Percocet] Allergy RASH Verified 06/10/18 12:53 Physical Exam - Constitutional Appears: In Acute Distress - Head Exam Head Exam: ATRAUMATIC - Eye Exam Eye Exam: Conjunctival injection - ENT Exam ENT Exam: Mucous Membranes Moist - Neck Exam Neck exam: Positive for: Full Rom - Respiratory Exam Respiratory Exam: Decreased Breath Sounds - Cardiovascular Exam Cardiovascular Exam: Irregular Rhythm - GI/Abdominal Exam GI & Abdominal Exam: Normal Bowel Sounds - Rectal Exam Rectal Exam: NORMAL INSPECTION - Extremities Exam Additional comments: bilateral amputation - Back Exam Back exam: CVA tenderness (L) - Neurological Exam Neurological exam: Oriented x3 - Psychiatric Exam Psychiatric exam: Normal Affect - Skin Skin Exam: Pallor Results - Vital Signs Recent Vital Signs: Last Vital Signs Temp 98.0 F 06/11/18 07:00 Pulse 84 06/11/18 08:15 Resp 18 06/11/18 07:00 BP 138/66 06/11/18 07:00 Pulse Ox 96 06/11/18 07:00 - Labs Result Diagrams: 06/10/18 14:07 06/10/18 14:07 Labs: Laboratory Results - last 24 hr 06/10/18 06/10/18 06/10/18 14:07 14:07 20:56 WBC 12.2 H D RBC 3.50 L Hgb 10.7 L Hct 33.1 L MCV 94.3 H MCH 30.6 MCHC 32.4 L RDW 19.2 H Plt Count 265 MPV 9.5 Neut % (Auto) 75.7 H Lymph % (Auto) 16.3 L [place] % (Auto) 3.8 Eos % (Auto) 3.1 Baso % (Auto) 1.1 Neut # (Auto) 9.3 H Lymph # (Auto) 2.0 [place] # (Auto) 0.5 Eos # (Auto) 0.4 Baso # (Auto) 0.1 Sodium 137 Potassium 5.8 H Chloride 98 Carbon Dioxide 19 L Anion Gap 26 H BUN 73 H Creatinine 7.1 H Est GFR ( Amer) 11 Est GFR (Non-Af Amer) 9 POC Glucose (mg/dL) 286 H Random Glucose 282 H Calcium 8.2 L Total Bilirubin 0.5 AST 15 L D ALT 9 L D Alkaline Phosphatase 289 H D Total Creatine Kinase CK-MB (Mass) Troponin I 0.4100 H* NT-Pro-B Natriuret Pep 312078 H Total Protein 7.4 Albumin 4.0 Globulin 3.3 Albumin/Globulin Ratio 1.2 06/10/18 06/11/18 06/11/18 21:43 06:31 10:49 WBC RBC Hgb Hct MCV MCH MCHC RDW Plt Count MPV Neut % (Auto) Lymph % (Auto) [place] % (Auto) Eos % (Auto) Baso % (Auto) Neut # (Auto) Lymph # (Auto) [place] # (Auto) Eos # (Auto) Baso # (Auto) Sodium Potassium Chloride Carbon Dioxide Anion Gap BUN Creatinine Est GFR ( Amer) Est GFR (Non-Af Amer) POC Glucose (mg/dL) 315 H 260 H Random Glucose Calcium Total Bilirubin AST ALT Alkaline Phosphatase Total Creatine Kinase 29 L CK-MB (Mass) 2.21 Troponin I 0.3670 H* NT-Pro-B Natriuret Pep Total Protein Albumin Globulin Albumin/Globulin Ratio Assessment & Plan - Assessment and Plan (Free Text) Assessment: ac chest pain severe cad chf dmid arrythmia Plan: as per orders - Date & Time Date: 06/11/18 Time: 12:33
--- NOTE | 2018-06-11 15:13 | CP.PCM.CON ---
History of Present Illness - History of Present Illness History of Present Illness: Nephrology Consultation Note: Assessment:Stable HTN urgency with Pulmonary congestion , fluid overload chronic chest pain, A flutter Diabetic chronic Kidney Disease (E11.22) Hypertensive Chronic Kidney Disease (I12.0) End stage renal disease (N18.6) dependence on hemodialysis (Z99.2) (TTS) via AVF Anemia (D64.9), Hyperphosphatemia (E83.39), Secondary Hyperparathyroidism (E21.1), HTN (I12.0) CAD s/p CABG, diastolic CHF, parox A flutter/fib, intra-cardiac thrombus, hx of Heparin induced thrombocytopenia, hx of seizure, blindness Plan: plan for dialysis today then tomorrow as per TTS schedule Continue with Nephrovite 1 tab/day. started HANNAH with HD . PRBC As needed for anemia, last Hb 10.7 Continue with phos binders home dose BP control with meds as ordered. on ARB as losartan Glycemic control, Dialysis consistent diet Further work up/management as per primary team Dose meds/antibiotics for ESRD status. Avoid fleets enema/magnesium based laxatives. cardiology following Thanks for allowing me to participate in care of your patient. Will follow patient with you. Please call if any Qs. had d/w team Dr Eric Temple Office: [phone] CC: CP and SOB reason for consult: ESRD HPI: Pt is a 37 y/o transgender with hx of ESRD on hemodialysis (TTS) via permacath, chronic anemia, hyperphosphatemia, secondary hyperparathyroidism, Diabetes Mellitus, hypertension, CAD s/p CABG, diastolic CHF, pA flutter/fib, intra-cardiac thrombus, Heparin induced thrombocytopenia in past presented with complaints of SOB and chronic chest pain x 1 day. pt with recurrent and frequent hospitalizations for same complaints. missed HD yesterday ROS: All other negative except as in HPI. has chronic chest pain, no GI symptoms. c/o SOB Physical Examination: General Appearance: in no acute respiratory distress, co-operative Vitals reviewed and noted as below Head; Atraumatic, normocephalic ENT: no ulcers no thrush. Tongue is midline. Oropharynx: no rash or ulcers. EYES: Pt is blind both eyes Neck; supple no lymphadenopathy, no thyromegaly or bruit Lungs: normal respiratory rate/effort. Breath sounds bilateral b/l clear today Heart: Normal rate. s1s2 normal. No rub or gallop. Extremities: no edema. No varicose veins. has b/l BKA. Neurological: Patient is awake follow commands no focal deficit Skin: Warm and dry. Normal turgor. No rash. Palpitation: Normal elasticity for age Abdomen: Abdomen is soft. Bowel sounds +. There is no abdominal tenderness, no guarding/rigidity or organomegaly Psych: limited insight and has normal affect/mood MSK: no joint tenderness or swelling. Digits and nails normal, no deformity : kidney or bladder not palpable Access: permacath Labs/imaging reviewed. Past medical history, past surgical history, family history, social history, al lergy reviewed and noted as below Family Hx: no hx of CKD. Non contributory Past Patient History - Infectious Disease Hx of Infectious Diseases: None - Tetanus Immunizations Tetanus Immunization: >10 years Ago - Past Medical History & Family History Past Medical History?: Yes - Past Social History Smoking Status: Never Smoked - CARDIAC Hx Cardiac Disorders: Yes Hx Atrial Fibrillation: Yes Hx Cardia Arrhythmia: Yes Hx Congestive Heart Failure: Yes Hx Hypercholesterolemia: Yes Hx Hypertension: Yes - PULMONARY Hx Respiratory Disorders: Yes Hx Asthma: Yes Hx Bronchitis: Yes Hx Chronic Obstructive Pulmonary Disease (COPD): Yes Hx Pneumonia: Yes - NEUROLOGICAL Hx Neurological Disorder: Yes Hx Seizures: Yes - HEENT Hx HEENT Problems: Yes Hx Blind: Yes Hx Cataracts: Yes - RENAL Date of Last Dialysis Treatment: 06/07/18 - ENDOCRINE/METABOLIC Hx Endocrine Disorders: Yes Hx Diabetes Mellitus Type 2: Yes Hx Hyperthyroidism: No Hx Hypothyroidism: Yes - HEMATOLOGICAL/ONCOLOGICAL Hx Blood Disorders: Yes Hx Anemia: Yes - INTEGUMENTARY Hx Dermatological Problems: No - MUSCULOSKELETAL/RHEUMATOLOGICAL Hx Musculoskeletal Disorders: Yes Hx Arthritis: Yes Hx Falls: No Other/Comment: Left BKA right AKA - GASTROINTESTINAL Hx Gastrointestinal Disorders: Yes Hx Gall Bladder Disease: Yes Hx Gastritis: Yes - GENITOURINARY/GYNECOLOGICAL Hx Genitourinary Disorders: No Hx Sexually Transmitted Disorders: No - PSYCHIATRIC Hx Substance Use: No - SURGICAL HISTORY Hx Surgeries: Yes Hx Amputation: Yes Hx Cholecystectomy: Yes (2011) 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/2009) Hx Coronary Stent: Yes - ANESTHESIA Hx Anesthesia: Yes Hx Anesthesia Reactions: No Hx Malignant Hyperthermia: No Has any member of the family had a problem w/ anesthesia?: No Meds Allergies/Adverse Reactions: Allergies Allergy/AdvReac Type Severity Reaction Status Date / Time acetaminophen [From Percocet] Allergy RASH Verified 06/10/18 12:53 atenolol Allergy RASH Verified 06/10/18 12:53 digoxin Allergy RASH Verified 06/10/18 12:53 milk Allergy ITCHING Verified 06/10/18 12:53 morphine Allergy RASH Verified 06/10/18 12:53 oxycodone HCl [From Percocet] Allergy RASH Verified 06/10/18 12:53 - Medications Medications: Current Medications Albuterol/Ipratropium (Duoneb 3 Mg/0.5 Mg (3 Ml) Ud) 3 ml IH RQ4 [facility] Last Admin: 06/11/18 11:17 Dose: Not Given Amiodarone HCl (Cordarone) 200 mg PO DAILY [facility] Last Admin: 06/11/18 09:09 Dose: 200 mg Amlodipine Besylate (Norvasc) 10 mg PO DAILY [facility] Last Admin: 06/11/18 09:17 Dose: Not Given Apixaban (Eliquis) 2.5 mg PO BID [facility] Last Admin: 06/11/18 09:08 Dose: 2.5 mg Aspirin (Aspirin Chewable) 81 mg PO DAILY [facility] Last Admin: 06/11/18 09:17 Dose: 81 mg Calcitriol (Rocaltrol) 0.25 mcg PO TTS [facility] Calcium Carbonate (Oscal) 500 mg PO BID [facility] Last Admin: 06/11/18 09:09 Dose: 500 mg Carvedilol (Coreg) 12.5 mg PO BID [facility] Last Admin: 06/11/18 09:15 Dose: Not Given Clopidogrel Bisulfate (Plavix) 75 mg PO DAILY [facility] Last Admin: 06/11/18 10:20 Dose: 75 mg Diltiazem HCl (Cardizem) 30 mg PO QID [facility] Last Admin: 06/11/18 14:00 Dose: Not Given Docusate Sodium (Colace) 100 mg PO BID PRN PRN Reason: Constipation Epoetin Tom (Procrit) 4,000 unit IV [facility] Ergocalciferol (Drisdol 50,000 Intl Units Cap) 1 cap PO Q7D [facility] Last Admin: 06/10/18 21:06 Dose: 1 cap Hydromorphone HCl (Dilaudid) 1 mg IVP Q6H PRN PRN Reason: Pain, moderate (4-7) Last Admin: 06/11/18 09:04 Dose: 1 mg Insulin Detemir (Levemir) 12 unit SC [facility] Insulin Human Regular (Novolin R) 0 unit SC [facility]; Protocol Last Admin: 06/11/18 12:52 Dose: 3 units Isosorbide Mononitrate (Imdur) 60 mg PO DAILY [facility] Last Admin: 06/11/18 09:16 Dose: Not Given Levetiracetam (Keppra) 500 mg PO BID [facility] Last Admin: 06/11/18 09:09 Dose: 500 mg Losartan Potassium (Cozaar) 100 mg PO DAILY [facility] Last Admin: 06/11/18 09:15 Dose: Not Given Montelukast Sodium (Singulair) 10 mg PO DAILY [facility] Last Admin: 06/11/18 09:08 Dose: 10 mg Pantoprazole Sodium (Protonix Ec Tab) 20 mg PO DAILY [facility] Last Admin: 06/11/18 09:09 Dose: 20 mg Ranolazine (Ranexa) 500 mg PO BID [facility] Last Admin: 06/11/18 09:07 Dose: 500 mg Rosuvastatin Calcium (Crestor) 10 mg PO [facility] Sertraline HCl (Zoloft) 50 mg PO DAILY [facility] Valproate Sodium (Depakene Cap) 250 mg PO QID [facility] Last Admin: 06/11/18 14:01 Dose: Not Given Vitamin B Complex/Vit C/Folic Acid (Nephro-Courtney) 1 tab PO 0800 [facility] Last Admin: 06/11/18 08:43 Dose: 1 tab Results - Vital Signs Recent Vital Signs: Last Vital Signs Temp 97.6 F 06/11/18 14:10 Pulse 71 06/11/18 14:43 Resp 20 06/11/18 14:43 BP 136/73 06/11/18 14:55 Pulse Ox 98 06/11/18 14:10 - Labs Result Diagrams: 06/10/18 14:07 06/10/18 14:07 Labs: Laboratory Results - last 24 hr 06/10/18 06/10/18 06/10/18 14:07 20:56 21:43 POC Glucose (mg/dL) 286 H Total Creatine Kinase 29 L CK-MB (Mass) 2.21 Troponin I 0.3670 H* NT-Pro-B Natriuret Pep 232624 H 06/11/18 06/11/18 06:31 10:49 POC Glucose (mg/dL) 315 H 260 H Total Creatine Kinase CK-MB (Mass) Troponin I NT-Pro-B Natriuret Pep
--- NOTE | 2018-06-11 15:27 | CP.PCM.PN ---
Subjective - Date & Time of Evaluation Date of Evaluation: 06/11/18 Time of Evaluation: 15:26 - Subjective Subjective: CONSULTATION NOTE Well known patient Multiple admissions Known AFIB/Flutter and was scheduled for aflutter ablation recently but deferred due to finding of clot around the permacath right atrium : started on eliquis 2.5 BID but unlikely taking: also recently confirmed to have HIT and PE thus no heparin and started on inc dose of eliquis 5 BID at [facility] 05/2018. Cardiac HX; Severe multivessel CAD, prior CABG and PCI nd residual small vessel severe diabetic disease not amenable to PCI: on medical therapy Acute on chronic mild-mod systolic and Grade 3 diastolic dysfunction AFLUTTER/FIB paroxysmal: maintained on amiodarone B/L BKA, ESRD, on HD, legally blind, Kleinfelters syndrome Chronic CAD: not sutiable for further PCI Chronic Mild-mod LV dysfunction with acute on chronic diastolic dysfunction Uncontrolled DM Recurrent AFLutter with RVR: aflutter ablation deferred due to finding of RA thrombus around permacath site (04/2018 [facility]) B/L BKA Legally blind HIT positive Objective - Vital Signs/Intake and Output Vital Signs (last 24 hours): Temp Pulse Resp BP Pulse Ox 97.6 F 71 20 136/73 98 06/11/18 14:10 06/11/18 14:43 06/11/18 14:43 06/11/18 14:55 06/11/18 14:10 - Medications Medications: Current Medications Albuterol/Ipratropium (Duoneb 3 Mg/0.5 Mg (3 Ml) Ud) 3 ml IH RQ4 [facility] Last Admin: 06/11/18 11:17 Dose: Not Given Amiodarone HCl (Cordarone) 200 mg PO DAILY [facility] Last Admin: 06/11/18 09:09 Dose: 200 mg Amlodipine Besylate (Norvasc) 10 mg PO DAILY [facility] Last Admin: 06/11/18 09:17 Dose: Not Given Apixaban (Eliquis) 2.5 mg PO BID [facility] Last Admin: 06/11/18 09:08 Dose: 2.5 mg Aspirin (Aspirin Chewable) 81 mg PO DAILY [facility] Last Admin: 06/11/18 09:17 Dose: 81 mg Calcitriol (Rocaltrol) 0.25 mcg PO TTS [facility] Calcium Carbonate (Oscal) 500 mg PO BID [facility] Last Admin: 06/11/18 09:09 Dose: 500 mg Carvedilol (Coreg) 12.5 mg PO BID [facility] Last Admin: 06/11/18 09:15 Dose: Not Given Clopidogrel Bisulfate (Plavix) 75 mg PO DAILY [facility] Last Admin: 06/11/18 10:20 Dose: 75 mg Diltiazem HCl (Cardizem) 30 mg PO QID [facility] Last Admin: 06/11/18 14:00 Dose: Not Given Docusate Sodium (Colace) 100 mg PO BID PRN PRN Reason: Constipation Epoetin Tom (Procrit) 4,000 unit IV TTS [facility] Ergocalciferol (Drisdol 50,000 Intl Units Cap) 1 cap PO Q7D [facility] Last Admin: 06/10/18 21:06 Dose: 1 cap Hydromorphone HCl (Dilaudid) 1 mg IVP Q6H PRN PRN Reason: Pain, moderate (4-7) Last Admin: 06/11/18 09:04 Dose: 1 mg Insulin Detemir (Levemir) 12 unit SC [facility] Insulin Human Regular (Novolin R) 0 unit SC [facility]; Protocol Last Admin: 06/11/18 12:52 Dose: 3 units Isosorbide Mononitrate (Imdur) 60 mg PO DAILY [facility] Last Admin: 06/11/18 09:16 Dose: Not Given Levetiracetam (Keppra) 500 mg PO BID [facility] Last Admin: 06/11/18 09:09 Dose: 500 mg Losartan Potassium (Cozaar) 100 mg PO DAILY [facility] Last Admin: 06/11/18 09:15 Dose: Not Given Montelukast Sodium (Singulair) 10 mg PO DAILY [facility] Last Admin: 06/11/18 09:08 Dose: 10 mg Pantoprazole Sodium (Protonix Ec Tab) 20 mg PO DAILY [facility] Last Admin: 06/11/18 09:09 Dose: 20 mg Ranolazine (Ranexa) 500 mg PO BID [facility] Last Admin: 06/11/18 09:07 Dose: 500 mg Rosuvastatin Calcium (Crestor) 10 mg PO [facility] Sertraline HCl (Zoloft) 50 mg PO DAILY [facility] Valproate Sodium (Depakene Cap) 250 mg PO QID [facility] Last Admin: 06/11/18 14:01 Dose: Not Given Vitamin B Complex/Vit C/Folic Acid (Nephro-Courtney) 1 tab PO 0800 [facility] Last Admin: 06/11/18 08:43 Dose: 1 tab - Labs Labs: 06/10/18 14:07 06/10/18 14:07 - Constitutional Appears: Chronically Ill - Head Exam Head Exam: ATRAUMATIC, NORMAL INSPECTION, NORMOCEPHALIC - Eye Exam Eye Exam: absent: Conjunctival injection, Normal appearance, Periorbital tenderness - ENT Exam ENT Exam: Mucous Membranes Moist, Normal Oropharynx - Neck Exam Neck Exam: Full ROM. absent: Tenderness, Thyromegaly - Respiratory Exam Respiratory Exam: Clear to Ausculation Bilateral, NORMAL BREATHING PATTERN. absent: Wheezes - Cardiovascular Exam Cardiovascular Exam: REGULAR RHYTHM, +S1, +S2, Murmur - GI/Abdominal Exam GI & Abdominal Exam: Soft. absent: Tenderness, Organomegaly - Extremities Exam Extremities Exam: absent: Normal Inspection (B/L BKA) - Neurological Exam Neurological Exam: Alert, Awake, Oriented x3 Assessment and Plan - Assessment and Plan (Free Text) Assessment: DATA and DIAG directly viewed by me EKG: NSR, LAE, LVH, chronic lateral STchanges c/w ischemia or strain CXR: mild congestion Acute on chronic mild-mod systolic and diastolic dysfunction - maintain fluid status with regular HD - cont coreg Chronic recurrent CHEST PAIN Mild-mod reduced systolic dysfunction Chronic diastolic dysfunction - chronic recurrent CP: likely musculoskeletal and neuropathic ordered: serial troponin - minimal troponin trend is c/w ESRD and possibly microvascular disease and demand ischemia - known severe CAD: and small residual [place] vessel CAD with failed bypass grafts: too small for any additional PCI - Rx : ranexa and imdur ESRD - cont HD - monitor lytes and replace as needed - orders: CMP to monitor lytes and K+ HTN - uncontrolled labile, improving but significantly elevated - with sporadic severe elevations - cont current meds and titrate as tolerated - coreg 25 BID, norvasc 10, losartan 100, DM - severe uncontrolled - probable gastroparesis - PPI and zofran Aflutter - paroxysmal - now NSR - HX fo clot around permacath: AFLUTTER ABLATION in future after complete anticoagulation course. - cont coreg and cardizem for now - ON amiodarone: monitor for zaida Hypercoagulable state - hx of perm catheter thrombus - recent PE at [facility] 05/2018 - HIT - I would increase elaquis 5mg po BID, as he has failed on 2.5 BID and pharmacokinetics suggest in dialysis 2.5 will not provide adequate anticoagulation especially in the setting/history of intra cardiac thrombus and pulmonary embolism - Cont ASA 81 - d/c plavix to reduce bleeding risk with triple therapy
--- NOTE | 2018-06-11 16:47 | CARD ---
APPROVED REPORT Date of service: 06/10/2018 EKG Measurement Heart [id number] <Conclusion> Normal sinus rhythm Incomplete left bundle branch block ST & T wave abnormality, consider lateral ischemia Abnormal ECG
--- NOTE | 2018-06-11 16:47 | CARD ---
APPROVED REPORT Date of service: 06/10/2018 EKG Measurement Heart [id number] MA [id number] <Conclusion> Normal sinus rhythm Possible Left atrial enlargement Incomplete left bundle branch block ST & T wave abnormality, consider inferolateral ischemia Prolonged QT Abnormal ECG
[2018-06-11] MEDS: Insulin Detemir 100 units/ml Vial (Levemir) SC SCH (22:37)
[2018-06-12] MEDS: Albuterol-Ipratrop 3 mg / 0.5 (3 ml) UD IH SCH ×6 (00:10→23:59)
[2018-06-12] MEDS: HYDROmorphone 1 mg/ml ISec IVP PRN ×3 (06:39→19:34)
[2018-06-12] MEDS: (Novolin R) Insulin Human Regular 100 units/ml vial SC SCH ×4 (07:23→21:33)
[2018-06-12] MEDS: Ranolazine 500 mg Extended Release Tablets PO SCH ×2 (09:08→17:08)
[2018-06-12] MEDS: Multivitamin Vitamin B Complex (Nephro-Vite) Tab PO SCH (09:08)
[2018-06-12] MEDS: Pantoprazole 20 mg EC Tab PO SCH (09:08)
[2018-06-12] MEDS: EPOETIN ALFA 4,000 UNIT/ML ML Dialysis IV SCH (10:49)
--- NOTE | 2018-06-12 11:37 | CP.PCM.PN ---
Subjective - Date & Time of Evaluation Date of Evaluation: 06/12/18 Time of Evaluation: 11:43 - Subjective Subjective: Receiving 2nd consecutive HD No new complaints BP is better Objective - Vital Signs/Intake and Output Vital Signs (last 24 hours): Temp Pulse Resp BP Pulse Ox 98.2 F 68 18 104/57 L 100 06/12/18 09:40 06/12/18 09:40 06/12/18 09:40 06/12/18 10:46 06/12/18 09:40 - Medications Medications: Current Medications Albuterol/Ipratropium (Duoneb 3 Mg/0.5 Mg (3 Ml) Ud) 3 ml IH RQ4 [facility] Last Admin: 06/12/18 08:46 Dose: 3 ml Amiodarone HCl (Cordarone) 200 mg PO DAILY [facility] Last Admin: 06/12/18 09:13 Dose: Not Given Amlodipine Besylate (Norvasc) 10 mg PO DAILY [facility] Last Admin: 06/12/18 09:01 Dose: Not Given Apixaban (Eliquis) 2.5 mg PO BID [facility] Last Admin: 06/12/18 09:08 Dose: 2.5 mg Aspirin (Aspirin Chewable) 81 mg PO DAILY [facility] Last Admin: 06/12/18 09:08 Dose: 81 mg Calcitriol (Rocaltrol) 0.25 mcg PO TTS [facility] Calcium Carbonate (Oscal) 500 mg PO BID [facility] Last Admin: 06/12/18 09:09 Dose: 500 mg Carvedilol (Coreg) 12.5 mg PO BID [facility] Last Admin: 06/12/18 09:01 Dose: Not Given Clopidogrel Bisulfate (Plavix) 75 mg PO DAILY [facility] Last Admin: 06/12/18 09:08 Dose: 75 mg Diltiazem HCl (Cardizem) 30 mg PO QID [facility] Last Admin: 06/12/18 09:00 Dose: Not Given Docusate Sodium (Colace) 100 mg PO BID PRN PRN Reason: Constipation Epoetin Tom (Procrit) 4,000 unit IV TTS [facility] Last Admin: 06/12/18 10:49 Dose: 4,000 unit Ergocalciferol (Drisdol 50,000 Intl Units Cap) 1 cap PO Q7D [facility] Last Admin: 06/10/18 21:06 Dose: 1 cap Hydromorphone HCl (Dilaudid) 1 mg IVP Q6H PRN PRN Reason: Pain, moderate (4-7) Last Admin: 06/12/18 06:39 Dose: 1 mg Insulin Detemir (Levemir) 12 unit SC [facility] Last Admin: 06/11/18 22:37 Dose: 12 u Insulin Human Regular (Novolin R) 0 unit SC [facility]; Protocol Last Admin: 06/12/18 11:29 Dose: Not Given Isosorbide Mononitrate (Imdur) 60 mg PO DAILY [facility] Last Admin: 06/12/18 09:01 Dose: Not Given Levetiracetam (Keppra) 500 mg PO BID [facility] Last Admin: 06/12/18 09:08 Dose: 500 mg Losartan Potassium (Cozaar) 100 mg PO DAILY [facility] Last Admin: 06/12/18 09:01 Dose: Not Given Montelukast Sodium (Singulair) 10 mg PO DAILY [facility] Last Admin: 06/12/18 09:09 Dose: 10 mg Pantoprazole Sodium (Protonix Ec Tab) 20 mg PO DAILY [facility] Last Admin: 06/12/18 09:08 Dose: 20 mg Ranolazine (Ranexa) 500 mg PO BID [facility] Last Admin: 06/12/18 09:08 Dose: 500 mg Rosuvastatin Calcium (Crestor) 10 mg PO HS [facility] Last Admin: 06/11/18 22:33 Dose: 10 mg Sertraline HCl (Zoloft) 50 mg PO DAILY [facility] Last Admin: 06/12/18 09:09 Dose: 50 mg Valproate Sodium (Depakene Cap) 250 mg PO QID [facility] Last Admin: 06/12/18 09:08 Dose: 250 mg Vitamin B Complex/Vit C/Folic Acid (Nephro-Courtney) 1 tab PO 0800 [facility] Last Admin: 06/12/18 09:08 Dose: 1 tab - Labs Labs: 06/10/18 14:07 06/10/18 14:07 - Constitutional Appears: Chronically Ill - Head Exam Head Exam: ATRAUMATIC, NORMAL INSPECTION, NORMOCEPHALIC - ENT Exam ENT Exam: Mucous Membranes Moist, Normal Exam - Respiratory Exam Respiratory Exam: Clear to Ausculation Bilateral, NORMAL BREATHING PATTERN. absent: Rhonchi, Wheezes - Cardiovascular Exam Cardiovascular Exam: REGULAR RHYTHM, +S1, +S2, Murmur - Extremities Exam Extremities Exam: Normal Inspection (B/L BKA) Assessment and Plan - Assessment and Plan (Free Text) Assessment: DATA and DIAG directly viewed by me EKG: NSR, LAE, LVH, chronic lateral STchanges c/w ischemia or strain CXR: mild congestion Acute on chronic mild-mod systolic and diastolic dysfunction Chronic recurrent CHEST PAIN COREG, ASA, CRESTOR, IMDUR, RANEXA, Losartan Non-revascularizable CAD with vessel too small for PCI or stent: Medical therapy only Aflutter- paroxysmal Hypercoagulable state Multiple images in past have shown recurrent of thrombus around R. chest HD cath hx of PE 05/2018 Amiodarone 200 daily, corg and diltiazem; monitor for zaida Eliquis for stroke risk reduction and recent PE ESRD- cont HD to maintain volume status and lytes HTN- hx of severe elevations: cont COREG, norvasc, losartan: additional hydralzine if needed DM- severe uncontrolled, optimize RX, dietary and diabetic counseling and teaching Aflutter- paroxysmal Hypercoagulable state - I would increase elaquis 5mg po BID, as he has failed on 2.5 BID and pharmacokinetics suggest in dialysis 2.5 will not provide adequate anticoagulation especially in the setting/history of intra cardiac thrombus and pulmonary embolism - Cont ASA 81 - d/c plavix to reduce bleeding risk with triple therapy
--- NOTE | 2018-06-12 13:39 | CP.PCM.PN ---
Subjective - Date & Time of Evaluation Date of Evaluation: 06/12/18 Time of Evaluation: 13:38 - Subjective Subjective: Nephrology Consultation Note: Assessment:Stable HTN urgency with Pulmonary congestion , fluid overload chronic chest pain, A flutter Diabetic chronic Kidney Disease (E11.22) Hypertensive Chronic Kidney Disease (I12.0) End stage renal disease (N18.6) dependence on hemodialysis (Z99.2) (TTS) via AVF Anemia (D64.9), Hyperphosphatemia (E83.39), Secondary Hyperparathyroidism (E21.1), HTN (I12.0) CAD s/p CABG, diastolic CHF, parox A flutter/fib, intra-cardiac thrombus, hx of Heparin induced thrombocytopenia, hx of seizure, blindness Plan: plan for dialysis today as per TTS schedule Continue with Nephrovite 1 tab/day. started [facility]ANNA[facility] with HD . PRBC As needed for anemia, last Hb 10.7 Continue with phos binders home dose BP control with meds as ordered. on ARB as losartan Glycemic control, Dialysis consistent diet Further work up/management as per primary team Dose meds/antibiotics for ESRD status. Avoid fleets enema/magnesium based laxatives. cardiology following Thanks for allowing me to participate in care of your patient. Will follow patient with you. Please call if any Qs. had d/w team Dr Eric Temple Office: [phone] CC: CP and SOB reason for consult: ESRD HPI: Pt is a 37 y/o transgender with hx of ESRD on hemodialysis (TTS) via permacath, chronic anemia, hyperphosphatemia, secondary hyperparathyroidism, Diabetes Mellitus, hypertension, CAD s/p CABG, diastolic CHF, pA flutter/fib, intra-cardiac thrombus, Heparin induced thrombocytopenia in past presented with complaints of SOB and chronic chest pain x 1 day. pt with recurrent and frequent hospitalizations for same complaints. missed HD yesterday ROS: All other negative except as in HPI. has chronic chest pain, no GI symptoms. c/o SOB Physical Examination: seen on hd General Appearance: in no acute respiratory distress, co-operative Vitals reviewed and noted as below Head; Atraumatic, normocephalic ENT: no ulcers no thrush. Tongue is midline. Oropharynx: no rash or ulcers. EYES: Pt is blind both eyes Neck; supple no lymphadenopathy, no thyromegaly or bruit Lungs: normal respiratory rate/effort. Breath sounds bilateral b/l clear today Heart: Normal rate. s1s2 normal. No rub or gallop. Extremities: no edema. No varicose veins. has b/l BKA. Neurological: Patient is awake follow commands no focal deficit Skin: Warm and dry. Normal turgor. No rash. Palpitation: Normal elasticity for age Abdomen: Abdomen is soft. Bowel sounds +. There is no abdominal tenderness, no guarding/rigidity or organomegaly Psych: limited insight and has normal affect/mood MSK: no joint tenderness or swelling. Digits and nails normal, no deformity : kidney or bladder not palpable Access: permacath Labs/imaging reviewed. Past medical history, past surgical history, family history, social history, allergy reviewed and noted as below Family Hx: no hx of CKD. Non contributory Objective - Vital Signs/Intake and Output Vital Signs (last 24 hours): Temp Pulse Resp BP Pulse Ox 98.2 F 68 18 113/68 100 06/12/18 09:40 06/12/18 09:40 06/12/18 09:40 06/12/18 12:51 06/12/18 09:40 - Medications Medications: Current Medications Albuterol/Ipratropium (Duoneb 3 Mg/0.5 Mg (3 Ml) Ud) 3 ml IH RQ4 [facility] Last Admin: 06/12/18 13:32 Dose: Not Given Amiodarone HCl (Cordarone) 200 mg PO DAILY [facility] Last Admin: 06/12/18 09:13 Dose: Not Given Amlodipine Besylate (Norvasc) 10 mg PO DAILY [facility] Last Admin: 06/12/18 09:01 Dose: Not Given Apixaban (Eliquis) 2.5 mg PO BID [facility] Last Admin: 06/12/18 09:08 Dose: 2.5 mg Aspirin (Aspirin Chewable) 81 mg PO DAILY [facility] Last Admin: 06/12/18 09:08 Dose: 81 mg Calcitriol (Rocaltrol) 0.25 mcg PO TTS [facility] Last Admin: 06/12/18 10:40 Dose: Not Given Calcium Carbonate (Oscal) 500 mg PO BID [facility] Last Admin: 06/12/18 09:09 Dose: 500 mg Carvedilol (Coreg) 12.5 mg PO BID [facility] Last Admin: 06/12/18 09:01 Dose: Not Given Clopidogrel Bisulfate (Plavix) 75 mg PO DAILY [facility] Last Admin: 06/12/18 09:08 Dose: 75 mg Diltiazem HCl (Cardizem) 30 mg PO QID [facility] Last Admin: 06/12/18 13:19 Dose: 30 mg Docusate Sodium (Colace) 100 mg PO BID PRN PRN Reason: Constipation Epoetin Tom (Procrit) 4,000 unit IV TTS [facility] Last Admin: 06/12/18 10:49 Dose: 4,000 unit Ergocalciferol (Drisdol 50,000 Intl Units Cap) 1 cap PO Q7D [facility] Last Admin: 06/10/18 21:06 Dose: 1 cap Hydromorphone HCl (Dilaudid) 1 mg IVP Q6H PRN PRN Reason: Pain, moderate (4-7) Last Admin: 06/12/18 13:20 Dose: 1 mg Insulin Detemir (Levemir) 12 unit SC [facility] Last Admin: 06/11/18 22:37 Dose: 12 u Insulin Human Regular (Novolin R) 0 unit SC [facility]; Protocol Last Admin: 06/12/18 11:29 Dose: Not Given Isosorbide Mononitrate (Imdur) 60 mg PO DAILY [facility] Last Admin: 06/12/18 09:01 Dose: Not Given Levetiracetam (Keppra) 500 mg PO BID [facility] Last Admin: 06/12/18 09:08 Dose: 500 mg Losartan Potassium (Cozaar) 100 mg PO DAILY [facility] Last Admin: 06/12/18 09:01 Dose: Not Given Montelukast Sodium (Singulair) 10 mg PO DAILY [facility] Last Admin: 06/12/18 09:09 Dose: 10 mg Pantoprazole Sodium (Protonix Ec Tab) 20 mg PO DAILY [facility] Last Admin: 06/12/18 09:08 Dose: 20 mg Ranolazine (Ranexa) 500 mg PO BID [facility] Last Admin: 06/12/18 09:08 Dose: 500 mg Rosuvastatin Calcium (Crestor) 10 mg PO HS [facility] Last Admin: 06/11/18 22:33 Dose: 10 mg Sertraline HCl (Zoloft) 50 mg PO DAILY [facility] Last Admin: 06/12/18 09:09 Dose: 50 mg Valproate Sodium (Depakene Cap) 250 mg PO QID [facility] Last Admin: 06/12/18 13:19 Dose: 250 mg Vitamin B Complex/Vit C/Folic Acid (Nephro-Courtney) 1 tab PO 0800 [facility] Last Admin: 06/12/18 09:08 Dose: 1 tab - Labs Labs: 06/10/18 14:07 06/10/18 14:07
--- NOTE | 2018-06-12 17:26 | CP.PCM.PN ---
Subjective - Date & Time of Evaluation Date of Evaluation: 06/12/18 Time of Evaluation: 17:23 - Subjective Subjective: less sob chest pain on and off bs 200 Objective - Vital Signs/Intake and Output Vital Signs (last 24 hours): Temp Pulse Resp BP Pulse Ox 98.1 F 68 18 125/76 100 06/12/18 15:00 06/12/18 16:26 06/12/18 15:00 06/12/18 17:08 06/12/18 15:00 - Medications Medications: Current Medications Albuterol/Ipratropium (Duoneb 3 Mg/0.5 Mg (3 Ml) Ud) 3 ml IH RQ4 [facility] Last Admin: 06/12/18 13:32 Dose: Not Given Amiodarone HCl (Cordarone) 200 mg PO DAILY [facility] Last Admin: 06/12/18 09:13 Dose: Not Given Amlodipine Besylate (Norvasc) 10 mg PO DAILY [facility] Last Admin: 06/12/18 09:01 Dose: Not Given Apixaban (Eliquis) 2.5 mg PO BID [facility] Last Admin: 06/12/18 17:09 Dose: 2.5 mg Aspirin (Aspirin Chewable) 81 mg PO DAILY [facility] Last Admin: 06/12/18 09:08 Dose: 81 mg Calcitriol (Rocaltrol) 0.25 mcg PO TTS [facility] Last Admin: 06/12/18 10:40 Dose: Not Given Calcium Carbonate (Oscal) 500 mg PO BID [facility] Last Admin: 06/12/18 17:08 Dose: 500 mg Carvedilol (Coreg) 12.5 mg PO BID [facility] Last Admin: 06/12/18 17:08 Dose: 12.5 mg Clopidogrel Bisulfate (Plavix) 75 mg PO DAILY [facility] Last Admin: 06/12/18 09:08 Dose: 75 mg Diltiazem HCl (Cardizem) 30 mg PO QID [facility] Last Admin: 06/12/18 17:08 Dose: 30 mg Docusate Sodium (Colace) 100 mg PO BID PRN PRN Reason: Constipation Epoetin Tom (Procrit) 4,000 unit IV TTS [facility] Last Admin: 06/12/18 10:49 Dose: 4,000 unit Ergocalciferol (Drisdol 50,000 Intl Units Cap) 1 cap PO Q7D [facility] Last Admin: 06/10/18 21:06 Dose: 1 cap Hydromorphone HCl (Dilaudid) 1 mg IVP Q6H PRN PRN Reason: Pain, moderate (4-7) Last Admin: 06/12/18 13:20 Dose: 1 mg Insulin Detemir (Levemir) 12 unit SC [facility] Last Admin: 06/11/18 22:37 Dose: 12 u Insulin Human Regular (Novolin R) 0 unit SC [facility]; Protocol Last Admin: 06/12/18 17:07 Dose: 2 units Isosorbide Mononitrate (Imdur) 60 mg PO DAILY [facility] Last Admin: 06/12/18 09:01 Dose: Not Given Levetiracetam (Keppra) 500 mg PO BID [facility] Last Admin: 06/12/18 17:14 Dose: 500 mg Losartan Potassium (Cozaar) 100 mg PO DAILY [facility] Last Admin: 06/12/18 09:01 Dose: Not Given Montelukast Sodium (Singulair) 10 mg PO DAILY [facility] Last Admin: 06/12/18 09:09 Dose: 10 mg Pantoprazole Sodium (Protonix Ec Tab) 20 mg PO DAILY [facility] Last Admin: 06/12/18 09:08 Dose: 20 mg Ranolazine (Ranexa) 500 mg PO BID [facility] Last Admin: 06/12/18 17:08 Dose: 500 mg Rosuvastatin Calcium (Crestor) 10 mg PO HS [facility] Last Admin: 06/11/18 22:33 Dose: 10 mg Sertraline HCl (Zoloft) 50 mg PO DAILY [facility] Last Admin: 06/12/18 09:09 Dose: 50 mg Valproate Sodium (Depakene Cap) 250 mg PO QID [facility] Last Admin: 06/12/18 17:08 Dose: 250 mg Vitamin B Complex/Vit C/Folic Acid (Nephro-Courtney) 1 tab PO 0800 [facility] Last Admin: 06/12/18 09:08 Dose: 1 tab - Labs Labs: 06/10/18 14:07 06/10/18 14:07 - Constitutional Appears: Non-toxic - Head Exam Head Exam: ATRAUMATIC - Eye Exam Eye Exam: Conjunctival injection - ENT Exam ENT Exam: Mucous Membranes Moist - Neck Exam Neck Exam: Normal Inspection - Respiratory Exam Respiratory Exam: NORMAL BREATHING PATTERN - Cardiovascular Exam Cardiovascular Exam: Irregular Rhythm, +S1, +S2, +S4 - GI/Abdominal Exam GI & Abdominal Exam: Normal Bowel Sounds - Neurological Exam Neurological Exam: Awake - Psychiatric Exam Psychiatric exam: Normal Mood - Skin Skin Exam: Dry Assessment and Plan - Assessment and Plan (Free Text) Assessment: chest pain cad chf esrf dmid esrf cont as per orders Plan: will cont treatment my d/c soon
[2018-06-12] MEDS: Insulin Detemir 100 units/ml Vial (Levemir) SC SCH (21:53)
[2018-06-13] MEDS: HYDROmorphone 1 mg/ml ISec IVP PRN ×4 (01:27→20:54)
[2018-06-13] MEDS: Albuterol-Ipratrop 3 mg / 0.5 (3 ml) UD IH SCH ×5 (03:24→19:02)
[2018-06-13] MEDS: Multivitamin Vitamin B Complex (Nephro-Vite) Tab PO SCH (08:46)
[2018-06-13] MEDS: (Novolin R) Insulin Human Regular 100 units/ml vial SC SCH ×4 (08:46→21:21)
[2018-06-13] MEDS: Pantoprazole 20 mg EC Tab PO SCH (10:26)
[2018-06-13] MEDS: Ranolazine 500 mg Extended Release Tablets PO SCH ×2 (10:26→17:06)
--- NOTE | 2018-06-13 11:15 | CP.PCM.PN ---
Subjective - Date & Time of Evaluation Date of Evaluation: 06/13/18 Time of Evaluation: 11:13 - Subjective Subjective: less sob bs still hi on and off chest pain Objective - Vital Signs/Intake and Output Vital Signs (last 24 hours): Temp Pulse Resp BP Pulse Ox 97.6 F 41 L 20 138/80 100 06/13/18 07:53 06/13/18 07:53 06/13/18 07:53 06/13/18 10:33 06/13/18 07:53 Intake and Output: 06/13/18 06/13/18 06:59 18:59 Intake Total 300 Balance 300 - Medications Medications: Current Medications Albuterol/Ipratropium (Duoneb 3 Mg/0.5 Mg (3 Ml) Ud) 3 ml IH RQ4 [facility] Last Admin: 06/13/18 03:24 Dose: Not Given Amiodarone HCl (Cordarone) 200 mg PO DAILY [facility] Last Admin: 06/13/18 10:27 Dose: 200 mg Amlodipine Besylate (Norvasc) 10 mg PO DAILY [facility] Last Admin: 06/13/18 10:27 Dose: 10 mg Apixaban (Eliquis) 2.5 mg PO BID [facility] Last Admin: 06/13/18 10:26 Dose: 2.5 mg Aspirin (Aspirin Chewable) 81 mg PO DAILY [facility] Last Admin: 06/13/18 10:27 Dose: 81 mg Calcitriol (Rocaltrol) 0.25 mcg PO TTS [facility] Last Admin: 06/12/18 10:40 Dose: Not Given Calcium Carbonate (Oscal) 500 mg PO BID [facility] Last Admin: 06/13/18 10:26 Dose: 500 mg Carvedilol (Coreg) 12.5 mg PO BID [facility] Last Admin: 06/13/18 10:33 Dose: 12.5 mg Clopidogrel Bisulfate (Plavix) 75 mg PO DAILY [facility] Last Admin: 06/13/18 10:26 Dose: 75 mg Diltiazem HCl (Cardizem) 30 mg PO QID [facility] Last Admin: 06/13/18 10:27 Dose: 30 mg Docusate Sodium (Colace) 100 mg PO BID PRN PRN Reason: Constipation Epoetin Tom (Procrit) 4,000 unit IV TTS [facility] Last Admin: 06/12/18 10:49 Dose: 4,000 unit Ergocalciferol (Drisdol 50,000 Intl Units Cap) 1 cap PO Q7D [facility] Last Admin: 06/10/18 21:06 Dose: 1 cap Hydromorphone HCl (Dilaudid) 1 mg IVP Q6H PRN PRN Reason: Pain, moderate (4-7) Last Admin: 06/13/18 08:45 Dose: 1 mg Insulin Detemir (Levemir) 12 unit SC [facility] Last Admin: 06/12/18 21:53 Dose: Not Given Insulin Human Regular (Novolin R) 0 unit SC [facility]; Protocol Last Admin: 06/13/18 08:46 Dose: 5 units Isosorbide Mononitrate (Imdur) 60 mg PO DAILY [facility] Last Admin: 06/13/18 10:26 Dose: 60 mg Levetiracetam (Keppra) 500 mg PO BID [facility] Last Admin: 06/13/18 10:27 Dose: 500 mg Losartan Potassium (Cozaar) 100 mg PO DAILY [facility] Last Admin: 06/13/18 10:26 Dose: 100 mg Montelukast Sodium (Singulair) 10 mg PO DAILY [facility] Last Admin: 06/12/18 09:09 Dose: 10 mg Pantoprazole Sodium (Protonix Ec Tab) 20 mg PO DAILY [facility] Last Admin: 06/13/18 10:26 Dose: 20 mg Ranolazine (Ranexa) 500 mg PO BID [facility] Last Admin: 06/13/18 10:26 Dose: 500 mg Rosuvastatin Calcium (Crestor) 10 mg PO [facility] Last Admin: 06/12/18 21:40 Dose: 10 mg Sertraline HCl (Zoloft) 50 mg PO DAILY [facility] Last Admin: 06/12/18 09:09 Dose: 50 mg Valproate Sodium (Depakene Cap) 250 mg PO QID [facility] Last Admin: 06/13/18 10:27 Dose: 250 mg Vitamin B Complex/Vit C/Folic Acid (Nephro-Courtney) 1 tab PO 0800 [facility] Last Admin: 06/13/18 08:46 Dose: 1 tab - Labs Labs: 06/10/18 14:07 06/10/18 14:07 - Constitutional Appears: Non-toxic - Head Exam Head Exam: NORMAL INSPECTION - Eye Exam Eye Exam: Normal appearance Pupil Exam: NORMAL ACCOMODATION - ENT Exam ENT Exam: Normal Exam - Neck Exam Neck Exam: Normal Inspection - Respiratory Exam Respiratory Exam: NORMAL BREATHING PATTERN - Cardiovascular Exam Cardiovascular Exam: Irregular Rhythm - GI/Abdominal Exam GI & Abdominal Exam: Soft - Back Exam Back Exam: CVA tenderness (L) - Neurological Exam Neurological Exam: Awake, Oriented x3 - Psychiatric Exam Psychiatric exam: Normal Affect - Skin Skin Exam: Normal Color Assessment and Plan - Assessment and Plan (Free Text) Assessment: cad chf dm esrf cont trearment inc insulin
--- NOTE | 2018-06-13 13:23 | CP.PCM.PN ---
Subjective - Date & Time of Evaluation Date of Evaluation: 06/13/18 Time of Evaluation: 13:22 - Subjective Subjective: Nephrology Consultation Note: Assessment:Stable HTN urgency with Pulmonary congestion , fluid overload chronic chest pain, A flutter Diabetic chronic Kidney Disease (E11.22) Hypertensive Chronic Kidney Disease (I12.0) End stage renal disease (N18.6) dependence on hemodialysis (Z99.2) (TTS) via AVF Anemia (D64.9), Hyperphosphatemia (E83.39), Secondary Hyperparathyroidism (E21.1), HTN (I12.0) CAD s/p CABG, diastolic CHF, parox A flutter/fib, intra-cardiac thrombus, hx of Heparin induced thrombocytopenia, hx of seizure, blindness Plan: plan for dialysis tomorrowy as per TTS schedule Continue with Nephrovite 1 tab/day. started HANNAH with HD . PRBC As needed for anemia, last Hb 10.7 Continue with phos binders home dose BP control with meds as ordered. on ARB as losartan Glycemic control, Dialysis consistent diet Further work up/management as per primary team Dose meds/antibiotics for ESRD status. Avoid fleets enema/magnesium based laxatives. cardiology following Thanks for allowing me to participate in care of your patient. Will follow patient with you. Please call if any Qs. had d/w team Dr Eric Temple Office: [phone] CC: CP and SOB reason for consult: ESRD HPI: Pt is a 37 y/o transgender with hx of ESRD on hemodialysis (TTS) via permacath, chronic anemia, hyperphosphatemia, secondary hyperparathyroidism, Diabetes Mellitus, hypertension, CAD s/p CABG, diastolic CHF, pA flutter/fib, intra-cardiac thrombus, Heparin induced thrombocytopenia in past presented with complaints of SOB and chronic chest pain x 1 day. pt with recurrent and frequent hospitalizations for same complaints. missed HD yesterday ROS: All other negative except as in HPI. has chronic chest pain, no GI symptoms. c/o SOB better Physical Examination: General Appearance: in no acute respiratory distress, co-operative Vitals reviewed and noted as below Head; Atraumatic, normocephalic ENT: no ulcers no thrush. Tongue is midline. Oropharynx: no rash or ulcers. EYES: Pt is blind both eyes Neck; supple no lymphadenopathy, no thyromegaly or bruit Lungs: normal respiratory rate/effort. Breath sounds bilateral b/l clear today Heart: Normal rate. s1s2 normal. No rub or gallop. Extremities: no edema. No varicose veins. has b/l BKA. Neurological: Patient is awake follow commands no focal deficit Skin: Warm and dry. Normal turgor. No rash. Palpitation: Normal elasticity for age Abdomen: Abdomen is soft. Bowel sounds +. There is no abdominal tenderness, no guarding/rigidity or organomegaly Psych: limited insight and has normal affect/mood MSK: no joint tenderness or swelling. Digits and nails normal, no deformity : kidney or bladder not palpable Access: permacath Labs/imaging reviewed. Past medical history, past surgical history, family history, social history, allergy reviewed and noted as below Family Hx: no hx of CKD. Non contributory Objective - Vital Signs/Intake and Output Vital Signs (last 24 hours): Temp Pulse Resp BP Pulse Ox 97.6 F 72 20 138/80 100 06/13/18 07:53 06/13/18 10:00 06/13/18 07:53 06/13/18 10:33 06/13/18 07:53 Intake and Output: 06/13/18 06/13/18 06:59 18:59 Intake Total 300 Balance 300 - Medications Medications: Current Medications Albuterol/Ipratropium (Duoneb 3 Mg/0.5 Mg (3 Ml) Ud) 3 ml IH RQ4 [facility] Last Admin: 06/13/18 12:00 Dose: Not Given Amiodarone HCl (Cordarone) 200 mg PO DAILY [facility] Last Admin: 06/13/18 10:27 Dose: 200 mg Amlodipine Besylate (Norvasc) 10 mg PO DAILY [facility] Last Admin: 06/13/18 10:27 Dose: 10 mg Apixaban (Eliquis) 2.5 mg PO BID [facility] Last Admin: 06/13/18 10:26 Dose: 2.5 mg Aspirin (Aspirin Chewable) 81 mg PO DAILY [facility] Last Admin: 06/13/18 10:27 Dose: 81 mg Calcitriol (Rocaltrol) 0.25 mcg PO TTS [facility] Last Admin: 06/12/18 10:40 Dose: Not Given Calcium Carbonate (Oscal) 500 mg PO BID [facility] Last Admin: 06/13/18 10:26 Dose: 500 mg Carvedilol (Coreg) 12.5 mg PO BID [facility] Last Admin: 06/13/18 10:33 Dose: 12.5 mg Clopidogrel Bisulfate (Plavix) 75 mg PO DAILY [facility] Last Admin: 06/13/18 10:26 Dose: 75 mg Diltiazem HCl (Cardizem) 30 mg PO QID [facility] Last Admin: 06/13/18 10:27 Dose: 30 mg Docusate Sodium (Colace) 100 mg PO BID PRN PRN Reason: Constipation Epoetin Tom (Procrit) 4,000 unit IV TTS [facility] Last Admin: 06/12/18 10:49 Dose: 4,000 unit Ergocalciferol (Drisdol 50,000 Intl Units Cap) 1 cap PO Q7D [facility] Last Admin: 06/10/18 21:06 Dose: 1 cap Hydromorphone HCl (Dilaudid) 1 mg IVP Q6H PRN PRN Reason: Pain, moderate (4-7) Last Admin: 06/13/18 08:45 Dose: 1 mg Insulin Detemir (Levemir) 16 unit SC ACB [facility] Insulin Human Regular (Novolin R) 0 unit SC ACHS [facility]; Protocol Last Admin: 06/13/18 12:33 Dose: 4 units Isosorbide Mononitrate (Imdur) 60 mg PO DAILY [facility] Last Admin: 06/13/18 10:26 Dose: 60 mg Levetiracetam (Keppra) 500 mg PO BID [facility] Last Admin: 06/13/18 10:27 Dose: 500 mg Losartan Potassium (Cozaar) 100 mg PO DAILY [facility] Last Admin: 06/13/18 10:26 Dose: 100 mg Montelukast Sodium (Singulair) 10 mg PO DAILY [facility] Last Admin: 06/13/18 12:34 Dose: Not Given Pantoprazole Sodium (Protonix Ec Tab) 20 mg PO DAILY [facility] Last Admin: 06/13/18 10:26 Dose: 20 mg Ranolazine (Ranexa) 500 mg PO BID [facility] Last Admin: 06/13/18 10:26 Dose: 500 mg Rosuvastatin Calcium (Crestor) 10 mg PO HS [facility] Last Admin: 06/12/18 21:40 Dose: 10 mg Sertraline HCl (Zoloft) 50 mg PO DAILY [facility] Last Admin: 06/12/18 09:09 Dose: 50 mg Valproate Sodium (Depakene Cap) 250 mg PO QID [facility] Last Admin: 06/13/18 10:27 Dose: 250 mg Vitamin B Complex/Vit C/Folic Acid (Nephro-Courtney) 1 tab PO 0800 [facility] Last Admin: 06/13/18 08:46 Dose: 1 tab - Labs Labs: 06/10/18 14:07 06/10/18 14:07
--- NOTE | 2018-06-13 13:58 | CP.PCM.PN ---
Subjective - Date & Time of Evaluation Date of Evaluation: 06/13/18 Time of Evaluation: 13:57 - Subjective Subjective: Events reviewed Objective - Vital Signs/Intake and Output Vital Signs (last 24 hours): Temp Pulse Resp BP Pulse Ox 97.6 F 72 20 138/80 100 06/13/18 07:53 06/13/18 10:00 06/13/18 07:53 06/13/18 10:33 06/13/18 07:53 Intake and Output: 06/13/18 06/13/18 06:59 18:59 Intake Total 300 Balance 300 - Medications Medications: Current Medications Albuterol/Ipratropium (Duoneb 3 Mg/0.5 Mg (3 Ml) Ud) 3 ml IH RQ4 [facility] Last Admin: 06/13/18 12:00 Dose: Not Given Amiodarone HCl (Cordarone) 200 mg PO DAILY [facility] Last Admin: 06/13/18 10:27 Dose: 200 mg Amlodipine Besylate (Norvasc) 10 mg PO DAILY [facility] Last Admin: 06/13/18 10:27 Dose: 10 mg Apixaban (Eliquis) 2.5 mg PO BID [facility] Last Admin: 06/13/18 10:26 Dose: 2.5 mg Aspirin (Aspirin Chewable) 81 mg PO DAILY [facility] Last Admin: 06/13/18 10:27 Dose: 81 mg Calcitriol (Rocaltrol) 0.25 mcg PO TTS [facility] Last Admin: 06/12/18 10:40 Dose: Not Given Calcium Carbonate (Oscal) 500 mg PO BID [facility] Last Admin: 06/13/18 10:26 Dose: 500 mg Carvedilol (Coreg) 12.5 mg PO BID [facility] Last Admin: 06/13/18 10:33 Dose: 12.5 mg Clopidogrel Bisulfate (Plavix) 75 mg PO DAILY [facility] Last Admin: 06/13/18 10:26 Dose: 75 mg Diltiazem HCl (Cardizem) 30 mg PO QID [facility] Last Admin: 06/13/18 13:43 Dose: 30 mg Docusate Sodium (Colace) 100 mg PO BID PRN PRN Reason: Constipation Epoetin Tom (Procrit) 4,000 unit IV TTS [facility] Last Admin: 06/12/18 10:49 Dose: 4,000 unit Ergocalciferol (Drisdol 50,000 Intl Units Cap) 1 cap PO Q7D [facility] Last Admin: 06/10/18 21:06 Dose: 1 cap Hydromorphone HCl (Dilaudid) 1 mg IVP Q6H PRN PRN Reason: Pain, moderate (4-7) Last Admin: 06/13/18 08:45 Dose: 1 mg Insulin Detemir (Levemir) 16 unit SC ACB [facility] Insulin Human Regular (Novolin R) 0 unit SC ACHS [facility]; Protocol Last Admin: 06/13/18 12:33 Dose: 4 units Isosorbide Mononitrate (Imdur) 60 mg PO DAILY [facility] Last Admin: 06/13/18 10:26 Dose: 60 mg Levetiracetam (Keppra) 500 mg PO BID [facility] Last Admin: 06/13/18 10:27 Dose: 500 mg Losartan Potassium (Cozaar) 100 mg PO DAILY [facility] Last Admin: 06/13/18 10:26 Dose: 100 mg Montelukast Sodium (Singulair) 10 mg PO DAILY [facility] Last Admin: 06/13/18 12:34 Dose: Not Given Pantoprazole Sodium (Protonix Ec Tab) 20 mg PO DAILY [facility] Last Admin: 06/13/18 10:26 Dose: 20 mg Ranolazine (Ranexa) 500 mg PO BID [facility] Last Admin: 06/13/18 10:26 Dose: 500 mg Rosuvastatin Calcium (Crestor) 10 mg PO HS [facility] Last Admin: 06/12/18 21:40 Dose: 10 mg Sertraline HCl (Zoloft) 50 mg PO DAILY [facility] Last Admin: 06/13/18 13:33 Dose: Not Given Valproate Sodium (Depakene Cap) 250 mg PO QID [facility] Last Admin: 06/13/18 13:43 Dose: 250 mg Vitamin B Complex/Vit C/Folic Acid (Nephro-Courtney) 1 tab PO 0800 [facility] Last Admin: 06/13/18 08:46 Dose: 1 tab - Labs Labs: 06/10/18 14:07 06/10/18 14:07 - Constitutional Appears: Non-toxic, Chronically Ill - Respiratory Exam Respiratory Exam: Clear to Ausculation Bilateral, NORMAL BREATHING PATTERN - Cardiovascular Exam Cardiovascular Exam: Irregular Rhythm, REGULAR RHYTHM, +S1, +S2, +S4, Murmur. absent: JVD - GI/Abdominal Exam GI & Abdominal Exam: Normal Bowel Sounds. absent: Organomegaly Assessment and Plan - Assessment and Plan (Free Text) Assessment: DATA and DIAG directly viewed by me EKG: NSR, LAE, LVH, chronic lateral STchanges c/w ischemia or strain CXR: mild congestion Acute on chronic mild-mod systolic and diastolic dysfunction Chronic recurrent CHEST PAIN COREG, ASA, CRESTOR, IMDUR, RANEXA, Losartan Non-revascularizable CAD with vessel too small for PCI or stent: Medical therapy only Aflutter- paroxysmal Hypercoagulable state Multiple images in past have shown recurrent of thrombus around R. chest HD cath hx of PE 05/2018 Amiodarone 200 daily, corg and diltiazem; monitor for zaida Eliquis for stroke risk reduction and recent PE ESRD- cont HD to maintain volume status and lytes HTN- hx of severe elevations: cont COREG, norvasc, losartan: additional hydralzine if needed DM- severe uncontrolled, optimize RX, dietary and diabetic counseling and teaching Aflutter- paroxysmal Hypercoagulable state - I would increase elaquis 5mg po BID, as he has failed on 2.5 BID and pharmacokinetics suggest in dialysis 2.5 will not provide adequate anticoagulation especially in the setting/history of intra cardiac thrombus and pulmonary embolism - Cont ASA 81 - d/c plavix to reduce bleeding risk with triple therapy
[2018-06-14] MEDS: HYDROmorphone 1 mg/ml ISec IVP PRN ×4 (01:54→20:24)
[2018-06-14] MEDS: Albuterol-Ipratrop 3 mg / 0.5 (3 ml) UD IH SCH ×6 (03:23→19:19)
[2018-06-14 07:42] VITALS: RESP 20
[2018-06-14] MEDS: Multivitamin Vitamin B Complex (Nephro-Vite) Tab PO SCH (08:01)
[2018-06-14] MEDS: (Novolin R) Insulin Human Regular 100 units/ml vial SC SCH ×4 (08:01→23:12)
[2018-06-14] MEDS: Insulin Detemir 100 units/ml Vial (Levemir) SC SCH (08:02)
[2018-06-14] MEDS: Ranolazine 500 mg Extended Release Tablets PO SCH ×2 (10:30→17:50)
[2018-06-14] MEDS: EPOETIN ALFA 4,000 UNIT/ML ML Dialysis IV SCH (10:31)
--- NOTE | 2018-06-14 12:03 | CP.PCM.PN ---
Subjective - Date & Time of Evaluation Date of Evaluation: 06/14/18 Time of Evaluation: 12:00 - Subjective Subjective: pt fells beter having dialysis today will discharg Objective - Vital Signs/Intake and Output Vital Signs (last 24 hours): Temp Pulse Resp BP Pulse Ox 97.5 F L 62 20 99/54 L 100 06/14/18 09:30 06/14/18 09:30 06/14/18 09:30 06/14/18 11:00 06/14/18 09:30 Intake and Output: 06/14/18 06/14/18 06:59 18:59 Intake Total 400 Balance 400 - Medications Medications: Current Medications Albuterol/Ipratropium (Duoneb 3 Mg/0.5 Mg (3 Ml) Ud) 3 ml IH RQ4 [facility] Last Admin: 06/14/18 09:21 Dose: Not Given Amiodarone HCl (Cordarone) 200 mg PO DAILY [facility] Last Admin: 06/13/18 10:27 Dose: 200 mg Amlodipine Besylate (Norvasc) 10 mg PO DAILY [facility] Last Admin: 06/13/18 10:27 Dose: 10 mg Apixaban (Eliquis) 2.5 mg PO BID [facility] Last Admin: 06/13/18 17:06 Dose: 2.5 mg Aspirin (Aspirin Chewable) 81 mg PO DAILY [facility] Last Admin: 06/13/18 10:27 Dose: 81 mg Calcitriol (Rocaltrol) 0.25 mcg PO TTS [facility] Last Admin: 06/12/18 10:40 Dose: Not Given Calcium Carbonate (Oscal) 500 mg PO BID [facility] Last Admin: 06/13/18 17:06 Dose: 500 mg Carvedilol (Coreg) 12.5 mg PO BID [facility] Last Admin: 06/13/18 17:07 Dose: Not Given Clopidogrel Bisulfate (Plavix) 75 mg PO DAILY [facility] Last Admin: 06/13/18 10:26 Dose: 75 mg Diltiazem HCl (Cardizem) 30 mg PO QID [facility] Last Admin: 06/13/18 21:26 Dose: 30 mg Docusate Sodium (Colace) 100 mg PO BID PRN PRN Reason: Constipation Epoetin Tom (Procrit) 4,000 unit IV TTS [facility] Last Admin: 06/14/18 10:31 Dose: 4,000 unit Ergocalciferol (Drisdol 50,000 Intl Units Cap) 1 cap PO Q7D [facility] Last Admin: 06/10/18 21:06 Dose: 1 cap Hydromorphone HCl (Dilaudid) 1 mg IVP Q6H PRN PRN Reason: Pain, moderate (4-7) Last Admin: 06/14/18 07:57 Dose: 1 mg Insulin Detemir (Levemir) 16 unit SC ACB [facility] Last Admin: 06/14/18 08:02 Dose: 16 units Insulin Human Regular (Novolin R) 0 unit SC ACHS [facility]; Protocol Last Admin: 06/14/18 08:01 Dose: 2 units Isosorbide Mononitrate (Imdur) 60 mg PO DAILY [facility] Last Admin: 06/13/18 10:26 Dose: 60 mg Levetiracetam (Keppra) 500 mg PO BID [facility] Last Admin: 06/13/18 17:06 Dose: 500 mg Losartan Potassium (Cozaar) 100 mg PO DAILY [facility] Last Admin: 06/13/18 10:26 Dose: 100 mg Montelukast Sodium (Singulair) 10 mg PO DAILY [facility] Last Admin: 06/13/18 12:34 Dose: Not Given Pantoprazole Sodium (Protonix Ec Tab) 20 mg PO DAILY [facility] Last Admin: 06/13/18 10:26 Dose: 20 mg Ranolazine (Ranexa) 500 mg PO BID [facility] Last Admin: 06/13/18 17:06 Dose: 500 mg Rosuvastatin Calcium (Crestor) 10 mg PO HS [facility] Last Admin: 06/13/18 21:26 Dose: 10 mg Sertraline HCl (Zoloft) 50 mg PO DAILY [facility] Last Admin: 06/13/18 13:33 Dose: Not Given Valproate Sodium (Depakene Cap) 250 mg PO QID [facility] Last Admin: 06/13/18 21:26 Dose: 250 mg Vitamin B Complex/Vit C/Folic Acid (Nephro-Courtney) 1 tab PO 0800 [facility] Last Admin: 06/14/18 08:01 Dose: 1 tab - Labs Labs: 06/10/18 14:07 06/10/18 14:07 - Constitutional Appears: Non-toxic - Head Exam Head Exam: NORMAL INSPECTION - Eye Exam Eye Exam: Conjunctival injection Additional comments: blind - ENT Exam ENT Exam: Mucous Membranes Moist - Neck Exam Neck Exam: Full ROM - Respiratory Exam Respiratory Exam: Decreased Breath Sounds - Cardiovascular Exam Cardiovascular Exam: Irregular Rhythm - GI/Abdominal Exam GI & Abdominal Exam: Normal Bowel Sounds - Extremities Exam Additional comments: bilat amputation - Back Exam Back Exam: CVA tenderness (L) - Neurological Exam Neurological Exam: Oriented x3 - Psychiatric Exam Psychiatric exam: Normal Affect - Skin Skin Exam: Pallor Assessment and Plan - Assessment and Plan (Free Text) Assessment: cad dmid esrf arrythmia Plan: stable will discharge today cont all treament
[2018-06-14] MEDS: Pantoprazole 20 mg EC Tab PO SCH (13:58)
--- NOTE | 2018-06-14 15:23 | CP.PCM.PN ---
Subjective - Date & Time of Evaluation Date of Evaluation: 06/14/18 Time of Evaluation: 15:22 - Subjective Subjective: Nephrology Consultation Note: Assessment:Stable HTN urgency with Pulmonary congestion , fluid overload chronic chest pain, A flutter Diabetic chronic Kidney Disease (E11.22) Hypertensive Chronic Kidney Disease (I12.0) End stage renal disease (N18.6) dependence on hemodialysis (Z99.2) (TTS) via AVF Anemia (D64.9), Hyperphosphatemia (E83.39), Secondary Hyperparathyroidism (E21.1), HTN (I12.0) CAD s/p CABG, diastolic CHF, parox A flutter/fib, intra-cardiac thrombus, hx of Heparin induced thrombocytopenia, hx of seizure, blindness Plan: seen on hd continue per schedule TTS Continue with Nephrovite 1 tab/day. started [facility]ANNAH with HD . PRBC As needed Continue with phos binders BP continue current meds Glycemic control Dose meds/antibiotics for ESRD status. Avoid fleets enema/magnesium based laxatives. cardiology following Physical Examination: General Appearance: in no acute respiratory distress, co-operative Vitals reviewed and noted as below Head; Atraumatic, normocephalic ENT: no ulcers no thrush. Tongue is midline. Oropharynx: no rash or ulcers. EYES: Pt is blind both eyes Neck; supple no lymphadenopathy, no thyromegaly or bruit Lungs: normal respiratory rate/effort. Breath sounds bilateral b/l clear today Heart: Normal rate. s1s2 normal. No rub or gallop. Extremities: no edema. No varicose veins. has b/l BKA. Neurological: Patient is awake follow commands no focal deficit Skin: Warm and dry. Normal turgor. No rash. Abdomen: Abdomen is soft. Bowel sounds +. There is no abdominal tenderness, no guarding/rigidity or organomegaly Psych: limited insight and has normal affect/mood MSK: no joint tenderness or swelling. Objective - Vital Signs/Intake and Output Vital Signs (last 24 hours): Temp Pulse Resp BP Pulse Ox 97.3 F L 67 20 117/62 100 06/14/18 13:00 06/14/18 13:00 06/14/18 13:00 06/14/18 13:00 06/14/18 13:00 Intake and Output: 06/14/18 06/14/18 06:59 18:59 Intake Total 400 Balance 400 - Medications Medications: Current Medications Albuterol/Ipratropium (Duoneb 3 Mg/0.5 Mg (3 Ml) Ud) 3 ml IH RQ4 [facility] Last Admin: 06/14/18 12:36 Dose: Not Given Amiodarone HCl (Cordarone) 200 mg PO DAILY [facility] Last Admin: 06/14/18 13:57 Dose: 200 mg Amlodipine Besylate (Norvasc) 10 mg PO DAILY [facility] Last Admin: 06/14/18 10:30 Dose: Not Given Apixaban (Eliquis) 2.5 mg PO BID [facility] Last Admin: 06/14/18 10:30 Dose: Not Given Aspirin (Aspirin Chewable) 81 mg PO DAILY [facility] Last Admin: 06/14/18 13:58 Dose: 81 mg Calcitriol (Rocaltrol) 0.25 mcg PO TTS [facility] Last Admin: 06/14/18 13:58 Dose: 0.25 mcg Calcium Carbonate (Oscal) 500 mg PO BID [facility] Last Admin: 06/14/18 10:30 Dose: Not Given Carvedilol (Coreg) 12.5 mg PO BID [facility] Last Admin: 06/14/18 10:30 Dose: Not Given Clopidogrel Bisulfate (Plavix) 75 mg PO DAILY [facility] Last Admin: 06/14/18 13:56 Dose: 75 mg Diltiazem HCl (Cardizem) 30 mg PO QID [facility] Last Admin: 06/14/18 13:58 Dose: 30 mg Docusate Sodium (Colace) 100 mg PO BID PRN PRN Reason: Constipation Epoetin Tom (Procrit) 4,000 unit IV TTS [facility] Last Admin: 06/14/18 10:31 Dose: 4,000 unit Ergocalciferol (Drisdol 50,000 Intl Units Cap) 1 cap PO Q7D [facility] Last Admin: 06/10/18 21:06 Dose: 1 cap Hydromorphone HCl (Dilaudid) 1 mg IVP Q6H PRN PRN Reason: Pain, moderate (4-7) Last Admin: 06/14/18 13:58 Dose: 1 mg Insulin Detemir (Levemir) 16 unit SC ACB [facility] Last Admin: 06/14/18 08:02 Dose: 16 units Insulin Human Regular (Novolin R) 0 unit SC ACHS [facility]; Protocol Last Admin: 06/14/18 12:30 Dose: Not Given Isosorbide Mononitrate (Imdur) 60 mg PO DAILY [facility] Last Admin: 06/14/18 10:30 Dose: Not Given Levetiracetam (Keppra) 500 mg PO BID [facility] Last Admin: 06/14/18 10:30 Dose: Not Given Losartan Potassium (Cozaar) 100 mg PO DAILY [facility] Last Admin: 06/14/18 10:30 Dose: Not Given Montelukast Sodium (Singulair) 10 mg PO DAILY [facility] Last Admin: 06/14/18 13:57 Dose: 10 mg Pantoprazole Sodium (Protonix Ec Tab) 20 mg PO DAILY [facility] Last Admin: 06/14/18 13:58 Dose: 20 mg Ranolazine (Ranexa) 500 mg PO BID [facility] Last Admin: 06/14/18 10:30 Dose: Not Given Rosuvastatin Calcium (Crestor) 10 mg PO HS [facility] Last Admin: 06/13/18 21:26 Dose: 10 mg Sertraline HCl (Zoloft) 50 mg PO DAILY [facility] Last Admin: 06/14/18 10:30 Dose: Not Given Valproate Sodium (Depakene Cap) 250 mg PO QID [facility] Last Admin: 06/14/18 13:57 Dose: 250 mg Vitamin B Complex/Vit C/Folic Acid (Nephro-Courtney) 1 tab PO 0800 [facility] Last Admin: 06/14/18 08:01 Dose: 1 tab - Labs Labs: 06/10/18 14:07 06/10/18 14:07
--- NOTE | 2018-06-14 16:28 | CP.PCM.PN ---
Objective - Vital Signs/Intake and Output Vital Signs (last 24 hours): Temp Pulse Resp BP Pulse Ox 97.3 F L 67 20 117/62 100 06/14/18 13:00 06/14/18 13:00 06/14/18 13:00 06/14/18 13:00 06/14/18 13:00 Intake and Output: 06/14/18 06/14/18 06:59 18:59 Intake Total 400 Balance 400 - Medications Medications: Current Medications Albuterol/Ipratropium (Duoneb 3 Mg/0.5 Mg (3 Ml) Ud) 3 ml IH RQ4 [facility] Last Admin: 06/14/18 12:36 Dose: Not Given Amiodarone HCl (Cordarone) 200 mg PO DAILY [facility] Last Admin: 06/14/18 13:57 Dose: 200 mg Amlodipine Besylate (Norvasc) 10 mg PO DAILY [facility] Last Admin: 06/14/18 10:30 Dose: Not Given Apixaban (Eliquis) 2.5 mg PO BID [facility] Last Admin: 06/14/18 10:30 Dose: Not Given Aspirin (Aspirin Chewable) 81 mg PO DAILY [facility] Last Admin: 06/14/18 13:58 Dose: 81 mg Calcitriol (Rocaltrol) 0.25 mcg PO TTS [facility] Last Admin: 06/14/18 13:58 Dose: 0.25 mcg Calcium Carbonate (Oscal) 500 mg PO BID [facility] Last Admin: 06/14/18 10:30 Dose: Not Given Carvedilol (Coreg) 12.5 mg PO BID [facility] Last Admin: 06/14/18 10:30 Dose: Not Given Clopidogrel Bisulfate (Plavix) 75 mg PO DAILY [facility] Last Admin: 06/14/18 13:56 Dose: 75 mg Diltiazem HCl (Cardizem) 30 mg PO QID [facility] Last Admin: 06/14/18 13:58 Dose: 30 mg Docusate Sodium (Colace) 100 mg PO BID PRN PRN Reason: Constipation Epoetin Tom (Procrit) 4,000 unit IV TTS [facility] Last Admin: 06/14/18 10:31 Dose: 4,000 unit Ergocalciferol (Drisdol 50,000 Intl Units Cap) 1 cap PO Q7D [facility] Last Admin: 06/10/18 21:06 Dose: 1 cap Hydromorphone HCl (Dilaudid) 1 mg IVP Q6H PRN PRN Reason: Pain, moderate (4-7) Last Admin: 06/14/18 13:58 Dose: 1 mg Insulin Detemir (Levemir) 16 unit SC ACB [facility] Last Admin: 06/14/18 08:02 Dose: 16 units Insulin Human Regular (Novolin R) 0 unit SC ACHS [facility]; Protocol Last Admin: 06/14/18 12:30 Dose: Not Given Isosorbide Mononitrate (Imdur) 60 mg PO DAILY [facility] Last Admin: 06/14/18 10:30 Dose: Not Given Levetiracetam (Keppra) 500 mg PO BID [facility] Last Admin: 06/14/18 10:30 Dose: Not Given Losartan Potassium (Cozaar) 100 mg PO DAILY [facility] Last Admin: 06/14/18 10:30 Dose: Not Given Montelukast Sodium (Singulair) 10 mg PO DAILY [facility] Last Admin: 06/14/18 13:57 Dose: 10 mg Pantoprazole Sodium (Protonix Ec Tab) 20 mg PO DAILY [facility] Last Admin: 06/14/18 13:58 Dose: 20 mg Ranolazine (Ranexa) 500 mg PO BID [facility] Last Admin: 06/14/18 10:30 Dose: Not Given Rosuvastatin Calcium (Crestor) 10 mg PO HS [facility] Last Admin: 06/13/18 21:26 Dose: 10 mg Sertraline HCl (Zoloft) 50 mg PO DAILY [facility] Last Admin: 06/14/18 10:30 Dose: Not Given Valproate Sodium (Depakene Cap) 250 mg PO QID [facility] Last Admin: 06/14/18 13:57 Dose: 250 mg Vitamin B Complex/Vit C/Folic Acid (Nephro-Courtney) 1 tab PO 0800 [facility] Last Admin: 06/14/18 08:01 Dose: 1 tab - Labs Labs: 06/10/18 14:07 06/10/18 14:07
[2018-06-15] MEDS: Albuterol-Ipratrop 3 mg / 0.5 (3 ml) UD IH SCH ×4 (00:38→11:10)
[2018-06-15] MEDS: HYDROmorphone 1 mg/ml ISec IVP PRN ×2 (03:21→09:30)
[2018-06-15] MEDS: Insulin Detemir 100 units/ml Vial (Levemir) SC SCH (07:37)
[2018-06-15] MEDS: (Novolin R) Insulin Human Regular 100 units/ml vial SC SCH (07:38)
[2018-06-15 08:19] VITALS: PULSE 65; TEMP 98.2; O2SAT 100
[2018-06-15] MEDS: Multivitamin Vitamin B Complex (Nephro-Vite) Tab PO SCH (08:47)
[2018-06-15] MEDS: Ranolazine 500 mg Extended Release Tablets PO SCH (09:31)
[2018-06-15 09:33] VITALS: BP 113/58
[2018-06-15] MEDS: Pantoprazole 20 mg EC Tab PO SCH (09:33)
--- NOTE | 2018-07-05 11:09 | DS ---
HISTORY OF PRESENT ILLNESS: This patient came into the emergency room complaining of chest pain and short of breath, and he missed his dialysis. He is known to have coronary artery disease, congestive heart failure, and end-stage renal failure. So, he was admitted and seen by Dr. Galindo's group and he was started back again his dialysis. PHYSICAL EXAMINATION: VITAL SIGNS: At the time he came in, his blood pressure was 138/66, his temperature 98, his pulse oxygen was 96, and his respiration 18. LABORATORY DATA: His hemoglobin 10.7 and 33.1 hematocrit. His blood sugar at admission was 282. His BUN 73, creatinine 7.1. His potassium was 5.8, high. His white count was high at 12.42 and he has sugar up. His BNP was 129,000, very high. His troponin was 0.41, high. So, he was monitored EKG. He was also seen by Dr. Michaels and group. ASSESSMENT AND PLAN: He was given extra dialysis, so he can get rid of the fluid in his lungs for the heart failure. He was placed on all his medications and his oxygen. He continued to improve until he was discharged on 06/14/2018, to continue on his medication, continue dialysis as an outpatient, and to follow up in the office. FINAL DIAGNOSES: Acute recurrent congestive heart failure; coronary artery disease; diabetes mellitus, insulin dependent; end-stage renal failure, on dialysis. Sybil Li MD
== END 2018-06-15 14:13 | disposition home or self-care (01) | DRG 121 ==
LOC: C.ER 12:36 → C.9E 14:55 → C.5S 17:19
PROVIDERS: ADMIT Internal Medicine; ATTEND Internal Medicine
PROC: 5A1D70Z Performance of Urinary Filtration, Intermittent, Less than 6 Hours Per Day (ICD-10-PCS; principal; 2018-06-11)
PROC: 5A1D70Z Performance of Urinary Filtration, Intermittent, Less than 6 Hours Per Day (ICD-10-PCS; 2018-06-12)
PROC: 5A1D70Z Performance of Urinary Filtration, Intermittent, Less than 6 Hours Per Day (ICD-10-PCS; 2018-06-14)
DX: I21.4 Non-ST elevation (NSTEMI) myocardial infarction (principal); I13.2 Hypertensive heart and chronic kidney disease with heart failure and with stage 5 chronic kidney disease, or end stage renal disease; I50.32 Chronic diastolic (congestive) heart failure; N18.6 End stage renal disease; D68.59 Other primary thrombophilia; E11.22 Type 2 diabetes mellitus with diabetic chronic kidney disease; E11.65 Type 2 diabetes mellitus with hyperglycemia; I48.92 Unspecified atrial flutter; J44.9 Chronic obstructive pulmonary disease, unspecified; E11.43 Type 2 diabetes mellitus with diabetic autonomic (poly)neuropathy; N25.81 Secondary hyperparathyroidism of renal origin; G89.29 Other chronic pain; F02.80 Dementia in other diseases classified elsewhere, unspecified severity, without behavioral disturbance, psychotic disturbance, mood disturbance, and anxiety; I16.0 Hypertensive urgency; I25.10 Atherosclerotic heart disease of native coronary artery without angina pectoris; I48.91 Unspecified atrial fibrillation; K31.84 Gastroparesis; Z86.73 Personal history of transient ischemic attack (TIA), and cerebral infarction without residual deficits; G30.9 Alzheimer's disease, unspecified; F32.9 Major depressive disorder, single episode, unspecified; H54.8 Legal blindness, as defined in USA; Z99.2 Dependence on renal dialysis; Z95.5 Presence of coronary angioplasty implant and graft; Z89.611 Acquired absence of right leg above knee; Z89.512 Acquired absence of left leg below knee; F64.9 Gender identity disorder, unspecified; Q98.4 Klinefelter syndrome, unspecified; Z95.1 Presence of aortocoronary bypass graft

== ENCOUNTER 2018-07-01 23:11 | Inpatient (IN) | payer OTHER ==
[2018-07-01 23:12] VITALS: PULSE 110; BMI 18.8
[2018-07-02] MEDS ORDERED: Albuterol-Ipratrop 3 mg / 0.5 (3 ml) UD ONE (00:07)
[2018-07-02 00:25] LABS: ARTERIAL BLOOD GAS HCO3 21.6 mmol/L (21-28); ARTERIAL BLOOD GAS O2 SAT 91.4 % (95-98); ARTERIAL BLOOD GAS PCO2 32 mm/Hg (35-45); ARTERIAL BLOOD GAS PO2 59 mm/Hg (80-100); ARTERIAL BLOOD GAS TCO2 20.8 mmol/L (22-28)
[2018-07-02 00:27] LABS: BASO # 0.1 K/uL (0.0-0.2); EOS # 0.2 K/uL (0.0-0.7); EOS % 1.4 % (0.0-4.0); HEMOGLOBIN 11.2 g/dL (12.0-18.0); LYMPH # 1.3 K/uL (1.0-4.3); LYMPH % 8.6 % (20.0-40.0); MEAN CELL VOLUME 94.5 fL (80.0-94.0); MEAN CORPUSCULAR HEMOGLOBIN 30.4 pg (27.0-31.0); MEAN CORPUSCULAR HGB CONC 32.2 g/dL (33.0-37.0); MEAN PLATELET VOLUME 10.8 fL (7.2-11.7); MONO # 0.4 K/uL (0.0-0.8); NEUT # 12.7 K/uL (1.8-7.0); PLATELET COUNT 154 K/uL (130-400); RBC 3.69 Mil/uL (4.40-5.90); RED CELL DISTRIBUTION WIDTH 18.2 % (11.5-14.5); WHITE BLOOD COUNT 14.7 K/uL (4.8-10.8)
[2018-07-02 00:35] LABS: INR 1.3; PROTHROMBIN TIME 13.9 SECONDS (9.7-12.2)
--- NOTE | 2018-07-02 01:07 | C.PDOC ---
History Of Present Illness 38 y/o male presents to the ED complaining of 3 day history of cough, chills, and SOB. Patient has history of COPD and asthma, and states current symptoms feel similar to prior exacerbation episodes. States he had recent admission for pneumonia, which also prompted concern. Otherwise he denies any dizziness, nausea, vomiting, chest pain, or abdominal pain. Time Seen by Provider: 07/01/18 23:23 Chief Complaint (Nursing): Shortness Of Breath History Per: Patient History/Exam Limitations: no limitations Onset/Duration Of Symptoms: Days (x3) Current Symptoms Are (Timing): Still Present Past Medical History Reviewed: Historical Data, Nursing Documentation, Vital Signs Vital Signs: Last Vital Signs Temp 98.3 F 07/01/18 23:22 Pulse 104 H 07/01/18 23:22 Resp 22 07/01/18 23:58 BP 174/97 H 07/01/18 23:22 Pulse Ox 96 07/01/18 23:58 - Medical History PMH: Alzheimer's Disease, Anemia, Anxiety, Arthritis, Asthma, Atrial Fib rillation, Bronchitis, CAD, Cardia Arrhythmia, CHF, COPD, CVA, Depression, Diabetes, Deep Vein Thrombosis, Gastritis, Gastrointestinal Ulcer, Gall Bladder Disease, HTN, Hypercholesterolemia, Hypothyroidism, Pneumonia, End Stage Renal Disease, Chronic Kidney Disease, Seizures Denies: Hyperthyroidism, Kidney Stones, Sexually Transmitted Disease Surgical History: CABG (12/2009), Cholecystectomy (2011), Coronary Stent - [facility] (06/10/18) ABDOMINAL WALL SINOGRAM (12/31/13) ASSISTANCE WITH RESPIRATORY VENTILATION, 24-96 HRS, CPAP (05/31/18) C.A.T. SCAN OF ABDOMEN (10/31/13) CENTRAL VENOUS CATHETER PLACEMENT WITH GUIDANCE (02/10/15) CHANGE OTHER DEVICE IN TRUNK SUBCU/FASCIA, CHANGE HOUSE ATTENDANT APPROACH (06/01/17) DILATE R ANT TIB ART W DRUG-ELUT INTRALUM, PERC (08/12/15) DILATION OF LEFT FEMORAL ARTERY, PERCUTANEOUS APPROACH (07/04/16) DILATION OF RIGHT FEMORAL ARTERY, PERCUTANEOUS APPROACH (08/12/15) DILATION OF RIGHT POPLITEAL ARTERY, PERCUTANEOUS APPROACH (08/12/15) DX ULTRASOUND-HEART (01/05/13) ENTERAL INFUSION OF CONCENTRATED NUT. SUBSTANCES (06/28/13) EXCIS DEBRIDE OF WOUND, INFECT, OR BURN (08/03/14) EXCISION OF STOMACH, ENDO, DIAGN (03/03/17) EXTIRPATION OF MATTER FROM L FEM ART, PERC APPROACH (07/04/16) EXTIRPATION OF MATTER FROM R FEM ART, PERC APPROACH (08/12/15) EXTIRPATION OF MATTER FROM R POPL ART, PERC APPROACH (08/12/15) FLUOROSCOPY OF L LOW EXTREM ART USING L OSM CONTRAST (08/12/15) FLUOROSCOPY OF R LOW EXTREM ART USING L OSM CONTRAST (08/12/15) FLUOROSCOPY OF RIGHT JUGULAR VEINS, GUIDANCE (06/01/17) FREE SKIN GRAFT NEC (08/03/14) HEAD SOFT TISS X-RAY NEC (04/15/13) HEMODIALYSIS (04/28/15) INCIS W REM OF FORIEGN BODY OR DEV FROM SKIN & SUBCUT TISSUE (08/08/13) INSERT INFUSION DEV IN R INT JUGULAR VEIN, PERC (06/01/17) INSERTION OF INFUSION DEV INTO R SUBCLAV VEIN, PERC APPROACH (01/19/16) INSERTION OF INFUSION DEV INTO SUP VENA CAVA, PERC APPROACH (01/07/18) INSPECTION OF UPPER INTESTINAL TRACT, ENDO (03/03/17) INTRODUCE OF OTH THROMBOLYTIC INTO PERIPH ART, PERC APPROACH (08/12/15) LAPAROSCOPIC CHOLECYSTECTOMY (09/21/13) LOC EXC LES METATAR/TAR (06/01/14) PACKED CELL TRANSFUSION (06/01/14) PERCUTAN LIVER ASPIRAT (12/31/13) PERFORMANCE OF URINARY FILTRATION, MULTIPLE (05/17/17) PERFORMANCE OF URINARY FILTRATION, SINGLE (12/18/16) SKIN & SUBQ INCISION NEC (10/24/14) TETANUS TOXOID ADMINIST (06/13/14) TRANSFUSE NONAUT RED BLOOD CELLS IN PERIPH VEIN, PERC (04/09/17) ULTRASONOGRAPHY OF RIGHT AND LEFT HEART (04/09/17) ULTRASONOGRAPHY OF SUPERIOR VENA CAVA, GUIDANCE (01/07/18) VENOUS CATHETERIZATION FOR RENAL DIALYSIS (08/08/13) VENOUS CATHETERIZATION NEC (04/30/13) Family History: States: Unknown Family Hx - Social History Hx Tobacco Use: No Hx Alcohol Use: No Hx Substance Use: No - Immunization History Hx Tetanus Toxoid Vaccination: Yes Hx Influenza Vaccination: Yes Hx Pneumococcal Vaccination: Yes Review Of Systems Constitutional: Positive for: Chills Eyes: Negative for: Vision Change Cardiovascular: Negative for: Chest Pain, Palpitations, Light Headedness Respiratory: Positive for: Cough, Shortness of Breath Gastrointestinal: Negative for: Nausea, Vomiting Neurological: Negative for: Weakness, Dizziness Physical Exam - Physical Exam Appears: Non-toxic, No Acute Distress Skin: Normal Color, Warm, Dry Head: Atraumatic, Normacephalic Eye(s): bilateral: Other (Blind to bilateral eyes, cataract in the left eye) Oral Mucosa: Moist Neck: Normal ROM Chest: Other (Dialysis catheter to right chest wall) Cardiovascular: Rhythm Regular, No Murmur Respiratory: Decreased Breath Sounds (to the bilateral bases), No Wheezing Gastrointestinal/Abdominal: Soft, No Tenderness, No Distention Back: No CVA Tenderness, No Vertebral Tenderness Extremity: Bilateral: Normal Color And Temperature, Other (bilateral BKA to lower extremities) Neurological/Psych: Oriented x3, Normal Speech ED Course And Treatment - Laboratory Results Result Diagrams: 07/02/18 00:23 07/02/18 00:23 ECG: Interpreted By Me, Viewed By Me ECG Rhythm: Sinus Rhythm (at 85 bpm) Interpretation Of ECG: normal axis, incomplete LBBB, T wave inversions in leads I and II, no ST elevation O2 Sat by Pulse Oximetry: 96 (RA) Pulse Ox Interpretation: Normal Medical Decision Making Medical Decision Making: Plan: --EKG --ABG --CMP --Pro-BNP --Troponin I --CBC --PTT/PT --Blood culture --Chest x-ray --Reevaluation Labs reviewed. Patient given fentanyl ivp for pain. 2:45am Discussed with Dr. Sybil Li, patient accepted for admission. Requests Dr. Galindo for nephrology, and Dr. Escobar for cardiology. Disposition - Disposition Disposition: HOSPITALIZED Disposition Time: 23:23 Condition: FAIR - Clinical Impression Clinical Impression: Dyspnea - Scribe Statement The provider has reviewed the documentation as recorded by the Scribe (Yvonne Jones) Provider Attestation: All medical record entries made by the Scribe were at my direction and personally dictated by me. I have reviewed the chart and agree that the record accurately reflects my personal performance of the history, physical exam, medical decision making, and the department course for this patient. I have also personally directed, reviewed, and agree with the discharge instructions and disposition.
[2018-07-02 01:21] LABS: ALB/GLOB RATIO 1.3 (1.0-2.1); ALBUMIN 4.4 g/dL (3.5-5.0); CALCIUM 8.7 mg/dl (8.6-10.4); TROPONIN I 1.59 ng/mL (0.00-0.120)
[2018-07-02 03:00] LABS: ANISOCYTOSIS SLIGHT; EOSINOPHIL 5 % (0-4); LYMPHOCYTE 12 % (20-40); MONOCYTE 1 % (0-10); NEUTROPHIL 82 % (50-75); PLATELET ESTIMATE NORMAL (NORMAL); TOTAL CELLS COUNTED 100
[2018-07-02] MEDS ORDERED: Dextrose 50% SYRINGE Inj (50 ml) IV PRN (08:18)
[2018-07-02] MEDS ORDERED: Glucagon Recombinant 1 mg Inj IM PRN (08:18)
--- NOTE | 2018-07-02 08:51 | RAD ---
Date of service: 07/02/2018 PROCEDURE: CHEST RADIOGRAPH, 1 VIEW HISTORY: SOB COMPARISON: Comparison chest dated 06/10/2018 FINDINGS: In situ right IJ dialysis catheter with tip in the SVC/RA junction LUNGS: Diffuse bilateral infiltrates consistent with pulmonary vascular congestion. Bilateral effusions are present left larger than right PLEURA: As above. No apparent pneumothorax CARDIOVASCULAR: Sternotomy wires again noted. Heart remains enlarged unchanged. OSSEOUS STRUCTURES: No significant abnormalities. VISUALIZED UPPER ABDOMEN: Normal. OTHER FINDINGS: None. IMPRESSION: Diffuse bilateral infiltrates consistent with pulmonary venous congestion. Bilateral effusions left larger than right
[2018-07-02] MEDS: HYDROmorphone 0.5 mg/0.5 ml ISec IVP PRN ×4 (09:51→22:04)
[2018-07-02] MEDS: Pantoprazole 20 mg EC Tab PO SCH (10:08)
--- NOTE | 2018-07-02 11:00 | CP.PCM.CON ---
History of Present Illness - History of Present Illness History of Present Illness: CC: Shortness of breath HPI: 1. ESRD chronic and stable on HD 2. HTN is chornic and stable on coreg, norvasc 3. Angina chornic and stable s/p CABG now with atretic grafts s/p PCI if RCA and stable on imdur 4. Severe PVD s/p bilateral BKA 4. DM brittle labile sugers Review of Systems - Review of Systems All systems: reviewed and no additional remarkable complaints except Review of Systems: +Shortness of breath Past Patient History - Infectious Disease Hx of Infectious Diseases: None - Tetanus Immunizations Tetanus Immunization: >10 years Ago - Past Medical History & Family History Past Medical History?: Yes - Past Social History Smoking Status: Never Smoked - CARDIAC Hx Atrial Fibrillation: Yes Hx Cardia Arrhythmia: Yes Hx Congestive Heart Failure: Yes Hx Hypercholesterolemia: Yes Hx Hypertension: Yes - PULMONARY Hx Asthma: Yes Hx Bronchitis: Yes Hx Chronic Obstructive Pulmonary Disease (COPD): Yes Hx Pneumonia: Yes - NEUROLOGICAL Hx Alzheimer's Disease: Yes Hx Seizures: Yes - HEENT Hx HEENT Problems: Yes Hx Blind: Yes Hx Cataracts: Yes - RENAL Hx Chronic Kidney Disease: Yes Hx Kidney Stones: No - ENDOCRINE/METABOLIC Hx Hyperthyroidism: No Hx Hypothyroidism: Yes - HEMATOLOGICAL/ONCOLOGICAL Hx Anemia: Yes - INTEGUMENTARY Hx Dermatological Problems: No - MUSCULOSKELETAL/RHEUMATOLOGICAL Hx Arthritis: Yes - GASTROINTESTINAL Hx Gall Bladder Disease: Yes Hx Gastritis: Yes - GENITOURINARY/GYNECOLOGICAL Hx Sexually Transmitted Disorders: No - PSYCHIATRIC Hx Anxiety: Yes Hx Depression: Yes Hx Substance Use: No - SURGICAL HISTORY Hx Cholecystectomy: Yes (2011) 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/2009) Hx Coronary Stent: Yes - ANESTHESIA Hx Anesthesia: Yes Hx Anesthesia Reactions: No Hx Malignant Hyperthermia: No Meds Allergies/Adverse Reactions: Allergies Allergy/AdvReac Type Severity Reaction Status Date / Time acetaminophen [From Percocet] Allergy RASH Verified 06/10/18 12:53 atenolol Allergy RASH Verified 06/10/18 12:53 digoxin Allergy RASH Verified 06/10/18 12:53 milk Allergy ITCHING Verified 06/10/18 12:53 morphine Allergy RASH Verified 06/10/18 12:53 oxycodone HCl [From Percocet] Allergy RASH Verified 06/10/18 12:53 - Medications Medications: Current Medications Albuterol/Ipratropium (Duoneb 3 Mg/0.5 Mg (3 Ml) Ud) 3 ml INH RQ4 ASHLEY Amiodarone HCl (Cordarone) 200 mg PO DAILY [facility] Last Admin: 07/02/18 10:08 Dose: 200 mg Amlodipine Besylate (Norvasc) 10 mg PO DAILY [facility] Last Admin: 07/02/18 10:07 Dose: 10 mg Apixaban (Eliquis) 2.5 mg PO BID [facility] Last Admin: 07/02/18 10:35 Dose: 2.5 mg Aspirin (Aspirin Chewable) 81 mg PO DAILY [facility] Last Admin: 07/02/18 10:06 Dose: 81 mg Carvedilol (Coreg) 12.5 mg PO BID [facility] Last Admin: 07/02/18 10:07 Dose: 12.5 mg Dextrose (Dextrose 50% Inj) 0 ml IV STAT PRN; Protocol PRN Reason: Hypoglycemia Protocol Dextrose (Glutose 15) 0 gm PO ONCE PRN; Protocol PRN Reason: Hypoglycemia Protocol Docusate Sodium (Colace) 100 mg PO BID [facility] Last Admin: 07/02/18 10:35 Dose: 100 mg Glucagon (Glucagen Diagnostic Kit) 0 mg IM STAT PRN; Protocol PRN Reason: Hypoglycemia Protocol Heparin Sodium (Porcine) (Heparin) 3,700 units IVP TTS [facility] Hydromorphone HCl (Dilaudid) 0.5 mg IVP Q4H PRN PRN Reason: Pain, severe (8-10) Last Admin: 07/02/18 09:51 Dose: 0.5 mg Dextrose (Dextrose 5% In Water 1000 Ml) 1,000 mls @ 0 mls/hr IV .Q0M PRN; Protocol PRN Reason: Hypoglycemia Protocol Ceftriaxone Sodium 1 gm/ (Sodium Chloride) 100 mls @ 100 mls/hr IVPB DAILY [facility]; Protocol Last Admin: 07/02/18 10:37 Dose: 100 mls/hr Insulin Glargine (Lantus) 8 unit SC HS [facility] Insulin Human Regular (Novolin R) 0 unit SC ACHS [facility]; Protocol Isosorbide Mononitrate (Imdur) 60 mg PO DAILY [facility] Last Admin: 07/02/18 10:07 Dose: 60 mg Levetiracetam (Keppra) 500 mg PO BID [facility] Last Admin: 07/02/18 10:08 Dose: 500 mg Pantoprazole Sodium (Protonix Ec Tab) 20 mg PO DAILY [facility] Last Admin: 07/02/18 10:08 Dose: 20 mg Rosuvastatin Calcium (Crestor) 10 mg PO [facility] Sertraline HCl (Zoloft) 50 mg PO DAILY [facility] Last Admin: 07/02/18 10:08 Dose: 50 mg Vitamin B Complex/Vit C/Folic Acid (Nephro-Courtney) 1 tab PO 0800 [facility] Physical Exam - Constitutional Appears: Well, Cachectic, Chronically Ill - Head Exam Additional comments: Wide facies - Eye Exam Eye Exam: PERRL, Scleral icterus Additional comments: LEgal blindness - ENT Exam ENT Exam: Mucous Membranes Moist, Normal External Ear Exam - Neck Exam Neck exam: Negative for: Lymphadenopathy, Thyromegaly - Respiratory Exam Respiratory Exam: Clear to Auscultation Bilateral, NORMAL BREATHING PATTERN - Cardiovascular Exam Cardiovascular Exam: REGULAR RHYTHM, RRR, +S1, +S2, +S4, Systolic Murmur. absent: JVD - GI/Abdominal Exam GI & Abdominal Exam: Normal Bowel Sounds. absent: Organomegaly - Extremities Exam Extremities exam: Negative for: joint swelling Additional comments: Bilatral BKA with continued dried gangrene - Neurological Exam Neurological exam: CN II-XII Intact, Oriented x3 - Psychiatric Exam Additional comments: Developmental delay Results - Vital Signs Recent Vital Signs: Last Vital Signs Temp 97.9 F 07/02/18 07:00 Pulse 77 07/02/18 10:04 Resp 20 07/02/18 07:00 BP 150/80 07/02/18 10:07 Pulse Ox 100 07/02/18 07:00 - Labs Result Diagrams: 07/02/18 00:23 07/02/18 00:23 Labs: Laboratory Results - last 24 hr 07/02/18 07/02/18 07/02/18 00:08 00:23 00:23 WBC 14.7 H RBC 3.69 L Hgb 11.2 L Hct 34.9 L MCV 94.5 H MCH 30.4 MCHC 32.2 L RDW 18.2 H Plt Count 154 D MPV 10.8 Neut % (Auto) 86.0 H Lymph % (Auto) 8.6 L [place] % (Auto) 3.0 Eos % (Auto) 1.4 Baso % (Auto) 1.0 Neut # (Auto) 12.7 H Lymph # (Auto) 1.3 [place] # (Auto) 0.4 Eos # (Auto) 0.2 Baso # (Auto) 0.1 Neutrophils % (Manual) 82 H Lymphocytes % (Manual) 12 L Monocytes % (Manual) 1 Eosinophils % (Manual) 5 H Platelet Estimate Normal Anisocytosis (manual) Slight PT INR APTT Puncture Site L brac pCO2 32 L pO2 59 L HCO3 21.6 ABG pH 7.40 ABG Total CO2 20.8 L ABG O2 Saturation 91.4 L ABG Base Excess -4.0 L Rush Test Na ABG Potassium 4.5 Sodium 137.0 141 Chloride 103.0 101 Glucose 385 H Lactate 1.0 Liter Flow 2.5 Potassium 5.0 Carbon Dioxide 17 L Anion Gap 28 H BUN 71 H Creatinine 7.9 H* Est GFR ( Amer) 9 Est GFR (Non-Af Amer) 8 Random Glucose 375 H Calcium 8.7 Total Bilirubin 0.7 AST 18 ALT 15 L D Alkaline Phosphatase 274 H Troponin I 1.5900 H* NT-Pro-B Natriuret Pep 086846 H Total Protein 7.7 Albumin 4.4 Globulin 3.3 Albumin/Globulin Ratio 1.3 Arterial Blood Potassium 4.5 07/02/18 00:23 WBC RBC Hgb Hct MCV MCH MCHC RDW Plt Count MPV Neut % (Auto) Lymph % (Auto) [place] % (Auto) Eos % (Auto) Baso % (Auto) Neut # (Auto) Lymph # (Auto) [place] # (Auto) Eos # (Auto) Baso # (Auto) Neutrophils % (Manual) Lymphocytes % (Manual) Monocytes % (Manual) Eosinophils % (Manual) Platelet Estimate Anisocytosis (manual) PT 13.9 H INR 1.3 APTT 37 H Puncture Site pCO2 pO2 HCO3 ABG pH ABG Total CO2 ABG O2 Saturation ABG Base Excess Rush Test ABG Potassium Sodium Chloride Glucose Lactate Liter Flow Potassium Carbon Dioxide Anion Gap BUN Creatinine Est GFR ( Amer) Est GFR (Non-Af Amer) Random Glucose Calcium Total Bilirubin AST ALT Alkaline Phosphatase Troponin I NT-Pro-B Natriuret Pep Total Protein Albumin Globulin Albumin/Globulin Ratio Arterial Blood Potassium - EKG Data EKG Interpreted by: Myself EKG shows normal: Sinus rhythm Rate: Normal - Imaging and Cardiology Chest x-ray Status: Image reviewed by me Additional comment: Poor inspirtory effort, +Permcath, suspicous Right middle lobe infiltrate Assessment & Plan - Assessment and Plan (Free Text) Assessment: 38 year old transgender man Brittle diabetes on insulin, labile; Chest pain with abnormal troponin which is chronic due to CHF; ASHD s/p CABG with now atretic grafts, multiple PCI's patient is non revascularizable. Atrial thrombus on Elaquis I would increased to 5 BID, atrial flutter continue amiodarone unable to rhythm control with catheter based therapy due to intracardiac thrombus. ESRD chronic and stable on HD, HTN is chronic and stable on coreg, norvasc. Chronic angina is stable on imdur; can add ranexa if symptoms dictate. ASHD high dose of statin and asprin.
--- NOTE | 2018-07-02 11:02 | CP.PCM.CON ---
History of Present Illness - History of Present Illness History of Present Illness: Nephrology Consultation Note: Assessment:Stable Pulmonary congestion , fluid overload, pleural effusion, missed HD chronic chest pain, A flutter Diabetic chronic Kidney Disease (E11.22) Hypertensive Chronic Kidney Disease (I12.0) End stage renal disease (N18.6) dependence on hemodialysis (Z99.2) (TTS) via AVF Anemia (D64.9), Hyperphosphatemia (E83.39), Secondary Hyperparathyroidism (E21.1), HTN (I12.0) CAD s/p CABG, diastolic CHF, parox A flutter/fib, intra-cardiac thrombus, hx of Heparin induced thrombocytopenia, hx of seizure, blindness Plan: plan for dialysis today and then tomorrowy as per TTS schedule Continue with Nephrovite 1 tab/day. no HANNAH with HD . PRBC As needed for anemia, last Hb 11 Continue with phos binders home dose BP control with meds as ordered. on ARB as losartan Glycemic control, Dialysis consistent diet Further work up/management as per primary team Dose meds/antibiotics for ESRD status. Avoid fleets enema/magnesium based laxatives. cardiology following Thanks for allowing me to participate in care of your patient. Will follow patient with you. Please call if any Qs. had d/w team Dr Eric Temple Office: [phone] CC: CP and SOB reason for consult: ESRD HPI: Pt is a 38 y/o transgender with hx of ESRD on hemodialysis (TTS) via permacath, chronic anemia, hyperphosphatemia, secondary hyperparathyroidism, Diabetes Mellitus, hypertension, CAD s/p CABG, diastolic CHF, pA flutter/fib, intra-cardiac thrombus, Heparin induced thrombocytopenia in past presented with complaints of SOB and chronic chest pain x 1 day. pt with recurrent and frequent hospitalizations for same complaints. missed HD yesterday ROS: All other negative except as in HPI. has chronic chest pain, c/o loose stool now better. c/o SOB Physical Examination: General Appearance: in no acute respiratory distress, co-operative Vitals reviewed and noted as below Head; Atraumatic, normocephalic ENT: no ulcers no thrush. Tongue is midline. Oropharynx: no rash or ulcers. EYES: Pt is blind both eyes Neck; supple no lymphadenopathy, no thyromegaly or bruit Lungs: normal respiratory rate/effort. Breath sounds bilateral b/l decreased at bases with crackles Heart: Normal rate. s1s2 normal. No rub or gallop. Extremities: no edema. No varicose veins. has b/l BKA. Neurological: Patient is awake follow commands no focal deficit Skin: Warm and dry. Normal turgor. No rash. Palpitation: Normal elasticity for age Abdomen: Abdomen is soft. Bowel sounds +. There is no abdominal tenderness, no guarding/rigidity or organomegaly Psych: limited insight and has normal affect/mood MSK: no joint tenderness or swelling. Digits and nails normal, no deformity : kidney or bladder not palpable Access: permacath Labs/imaging reviewed. Past medical history, past surgical history, family history, social history, allergy reviewed and noted as below Family Hx: no hx of CKD. Non contributory Past Patient History - Infectious Disease Hx of Infectious Diseases: None - Tetanus Immunizations Tetanus Immunization: >10 years Ago - Past Medical History & Family History Past Medical History?: Yes - Past Social History Smoking Status: Never Smoked - CARDIAC Hx Atrial Fibrillation: Yes Hx Cardia Arrhythmia: Yes Hx Congestive Heart Failure: Yes Hx Hypercholesterolemia: Yes Hx Hypertension: Yes - PULMONARY Hx Asthma: Yes Hx Bronchitis: Yes Hx Chronic Obstructive Pulmonary Disease (COPD): Yes Hx Pneumonia: Yes - NEUROLOGICAL Hx Alzheimer's Disease: Yes Hx Seizures: Yes - HEENT Hx HEENT Problems: Yes Hx Blind: Yes Hx Cataracts: Yes - RENAL Hx Chronic Kidney Disease: Yes Hx Kidney Stones: No - ENDOCRINE/METABOLIC Hx Hyperthyroidism: No Hx Hypothyroidism: Yes - HEMATOLOGICAL/ONCOLOGICAL Hx Anemia: Yes - INTEGUMENTARY Hx Dermatological Problems: No - MUSCULOSKELETAL/RHEUMATOLOGICAL Hx Arthritis: Yes - GASTROINTESTINAL Hx Gall Bladder Disease: Yes Hx Gastritis: Yes - GENITOURINARY/GYNECOLOGICAL Hx Sexually Transmitted Disorders: No - PSYCHIATRIC Hx Anxiety: Yes Hx Depression: Yes Hx Substance Use: No - SURGICAL HISTORY Hx Cholecystectomy: Yes (2011) 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/2009) Hx Coronary Stent: Yes - ANESTHESIA Hx Anesthesia: Yes Hx Anesthesia Reactions: No Hx Malignant Hyperthermia: No Meds Allergies/Adverse Reactions: Allergies Allergy/AdvReac Type Severity Reaction Status Date / Time acetaminophen [From Percocet] Allergy RASH Verified 06/10/18 12:53 atenolol Allergy RASH Verified 06/10/18 12:53 digoxin Allergy RASH Verified 06/10/18 12:53 milk Allergy ITCHING Verified 06/10/18 12:53 morphine Allergy RASH Verified 06/10/18 12:53 oxycodone HCl [From Percocet] Allergy RASH Verified 06/10/18 12:53 - Medications Medications: Current Medications Albuterol/Ipratropium (Duoneb 3 Mg/0.5 Mg (3 Ml) Ud) 3 ml INH RQ4 [facility] Amiodarone HCl (Cordarone) 200 mg PO DAILY [facility] Last Admin: 07/02/18 10:08 Dose: 200 mg Amlodipine Besylate (Norvasc) 10 mg PO DAILY [facility] Last Admin: 07/02/18 10:07 Dose: 10 mg Apixaban (Eliquis) 2.5 mg PO BID [facility] Last Admin: 07/02/18 10:35 Dose: 2.5 mg Aspirin (Aspirin Chewable) 81 mg PO DAILY [facility] Last Admin: 07/02/18 10:06 Dose: 81 mg Carvedilol (Coreg) 12.5 mg PO BID [facility] Last Admin: 07/02/18 10:07 Dose: 12.5 mg Dextrose (Dextrose 50% Inj) 0 ml IV STAT PRN; Protocol PRN Reason: Hypoglycemia Protocol Dextrose (Glutose 15) 0 gm PO ONCE PRN; Protocol PRN Reason: Hypoglycemia Protocol Docusate Sodium (Colace) 100 mg PO BID [facility] Last Admin: 07/02/18 10:35 Dose: 100 mg Glucagon (Glucagen Diagnostic Kit) 0 mg IM STAT PRN; Protocol PRN Reason: Hypoglycemia Protocol Heparin Sodium (Porcine) (Heparin) 3,700 units IVP TTS [facility] Hydromorphone HCl (Dilaudid) 0.5 mg IVP Q4H PRN PRN Reason: Pain, severe (8-10) Last Admin: 07/02/18 09:51 Dose: 0.5 mg Dextrose (Dextrose 5% In Water 1000 Ml) 1,000 mls @ 0 mls/hr IV .Q0M PRN; Protocol PRN Reason: Hypoglycemia Protocol Ceftriaxone Sodium 1 gm/ (Sodium Chloride) 100 mls @ 100 mls/hr IVPB DAILY [facility]; Protocol Last Admin: 07/02/18 10:37 Dose: 100 mls/hr Insulin Glargine (Lantus) 8 unit SC HS [facility] Insulin Human Regular (Novolin R) 0 unit SC ACHS [facility]; Protocol Isosorbide Mononitrate (Imdur) 60 mg PO DAILY [facility] Last Admin: 07/02/18 10:07 Dose: 60 mg Levetiracetam (Keppra) 500 mg PO BID [facility] Last Admin: 07/02/18 10:08 Dose: 500 mg Pantoprazole Sodium (Protonix Ec Tab) 20 mg PO DAILY [facility] Last Admin: 07/02/18 10:08 Dose: 20 mg Rosuvastatin Calcium (Crestor) 10 mg PO [facility] Sertraline HCl (Zoloft) 50 mg PO DAILY [facility] Last Admin: 07/02/18 10:08 Dose: 50 mg Vitamin B Complex/Vit C/Folic Acid (Nephro-Courtney) 1 tab PO 0800 [facility] Results - Vital Signs Recent Vital Signs: Last Vital Signs Temp 97.9 F 07/02/18 07:00 Pulse 77 07/02/18 10:04 Resp 20 07/02/18 07:00 BP 150/80 07/02/18 10:07 Pulse Ox 100 07/02/18 07:00 - Labs Result Diagrams: 07/02/18 00:23 07/02/18 00:23 Labs: Laboratory Results - last 24 hr 07/02/18 07/02/18 07/02/18 00:08 00:23 00:23 WBC 14.7 H RBC 3.69 L Hgb 11.2 L Hct 34.9 L MCV 94.5 H MCH 30.4 MCHC 32.2 L RDW 18.2 H Plt Count 154 D MPV 10.8 Neut % (Auto) 86.0 H Lymph % (Auto) 8.6 L [place] % (Auto) 3.0 Eos % (Auto) 1.4 Baso % (Auto) 1.0 Neut # (Auto) 12.7 H Lymph # (Auto) 1.3 [place] # (Auto) 0.4 Eos # (Auto) 0.2 Baso # (Auto) 0.1 Neutrophils % (Manual) 82 H Lymphocytes % (Manual) 12 L Monocytes % (Manual) 1 Eosinophils % (Manual) 5 H Platelet Estimate Normal Anisocytosis (manual) Slight PT INR APTT Puncture Site L brac pCO2 32 L pO2 59 L HCO3 21.6 ABG pH 7.40 ABG Total CO2 20.8 L ABG O2 Saturation 91.4 L ABG Base Excess -4.0 L Rush Test Na ABG Potassium 4.5 Sodium 137.0 141 Chloride 103.0 101 Glucose 385 H Lactate 1.0 Liter Flow 2.5 Potassium 5.0 Carbon Dioxide 17 L Anion Gap 28 H BUN 71 H Creatinine 7.9 H* Est GFR ( Amer) 9 Est GFR (Non-Af Amer) 8 Random Glucose 375 H Calcium 8.7 Total Bilirubin 0.7 AST 18 ALT 15 L D Alkaline Phosphatase 274 H Troponin I 1.5900 H* NT-Pro-B Natriuret Pep [id number] H Total Protein 7.7 Albumin 4.4 Globulin 3.3 Albumin/Globulin Ratio 1.3 Arterial Blood Potassium 4.5 07/02/18 00:23 WBC RBC Hgb Hct MCV MCH MCHC RDW Plt Count MPV Neut % (Auto) Lymph % (Auto) [place] % (Auto) Eos % (Auto) Baso % (Auto) Neut # (Auto) Lymph # (Auto) [place] # (Auto) Eos # (Auto) Baso # (Auto) Neutrophils % (Manual) Lymphocytes % (Manual) Monocytes % (Manual) Eosinophils % (Manual) Platelet Estimate Anisocytosis (manual) PT 13.9 H INR 1.3 APTT 37 H Puncture Site pCO2 pO2 HCO3 ABG pH ABG Total CO2 ABG O2 Saturation ABG Base Excess Rush Test ABG Potassium Sodium Chloride Glucose Lactate Liter Flow Potassium Carbon Dioxide Anion Gap BUN Creatinine Est GFR ( Amer) Est GFR (Non-Af Amer) Random Glucose Calcium Total Bilirubin AST ALT Alkaline Phosphatase Troponin I NT-Pro-B Natriuret Pep Total Protein Albumin Globulin Albumin/Globulin Ratio Arterial Blood Potassium
[2018-07-02] MEDS: Albuterol-Ipratrop 3 mg / 0.5 (3 ml) UD INH SCH ×3 (11:26→19:37)
--- NOTE | 2018-07-02 11:30 | CARD ---
APPROVED REPORT Date of service: 07/02/2018 EKG Measurement Heart [id number] <Conclusion> Normal sinus rhythm lvh.diffuse st t changes. baseline artifact. please repeat. Abnormal ECG
[2018-07-02] MEDS: (Novolin R) Insulin Human Regular 100 units/ml vial SC SCH ×3 (12:18→21:03)
--- NOTE | 2018-07-02 17:04 | CP.PCM.HP ---
History of Present Illness - History of Present Illness History of Present Illness: pt came in to ed admited for sob abd pain cough fever missed his dialysis Present on Admission - Present on Admission Any Indicators Present on Admission: Yes Review of Systems - Review of Systems Systems not reviewed;Unavailable: Acuity of Condition, Respiratory Distress - Constitutional Constitutional: Fatigue - EENT Eyes: Blind Spots Ears: As Per HPI Nose/Mouth/Throat: As Per HPI - Cardiovascular Cardiovascular: Chest Pain, Dyspnea, Dyspnea on Exertion, Orthopnea - Respiratory Respiratory: Dyspnea - Gastrointestinal Gastrointestinal: Abdominal Pain, Diarrhea - Genitourinary Genitourinary: As Per HPI - Reproductive: Male Additional comments: [email or web address] - Musculoskeletal Musculoskeletal: Back Pain - Integumentary Integumentary: As Per HPI - Neurological Neurological: Convulsions Additional comments: hx - Psychiatric Psychiatric: Depression - Endocrine Additional Comments: dm - Hematologic/Lymphatic Additional comments: aneamia Past Patient History - Infectious Disease Hx of Infectious Diseases: None - Tetanus Immunizations Tetanus Immunization: >10 years Ago - Past Medical History & Family History Past Medical History?: Yes - Past Social History Smoking Status: Never Smoked - CARDIAC Hx Atrial Fibrillation: Yes Hx Cardia Arrhythmia: Yes Hx Congestive Heart Failure: Yes Hx Hypercholesterolemia: Yes Hx Hypertension: Yes - PULMONARY Hx Asthma: Yes Hx Bronchitis: Yes Hx Chronic Obstructive Pulmonary Disease (COPD): Yes Hx Pneumonia: Yes - NEUROLOGICAL Hx Alzheimer's Disease: Yes Hx Seizures: Yes - HEENT Hx HEENT Problems: Yes Hx Blind: Yes Hx Cataracts: Yes - RENAL Hx Chronic Kidney Disease: Yes Hx Kidney Stones: No - ENDOCRINE/METABOLIC Hx Hyperthyroidism: No Hx Hypothyroidism: Yes - HEMATOLOGICAL/ONCOLOGICAL Hx Anemia: Yes - INTEGUMENTARY Hx Dermatological Problems: No - MUSCULOSKELETAL/RHEUMATOLOGICAL Hx Arthritis: Yes - GASTROINTESTINAL Hx Gall Bladder Disease: Yes Hx Gastritis: Yes - GENITOURINARY/GYNECOLOGICAL Hx Sexually Transmitted Disorders: No - PSYCHIATRIC Hx Anxiety: Yes Hx Depression: Yes Hx Substance Use: No - SURGICAL HISTORY Hx Cholecystectomy: Yes (2011) 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/2009) Hx Coronary Stent: Yes - ANESTHESIA Hx Anesthesia: Yes Hx Anesthesia Reactions: No Hx Malignant Hyperthermia: No Meds Allergies/Adverse Reactions: Allergies Allergy/AdvReac Type Severity Reaction Status Date / Time acetaminophen [From Percocet] Allergy RASH Verified 06/10/18 12:53 atenolol Allergy RASH Verified 06/10/18 12:53 digoxin Allergy RASH Verified 06/10/18 12:53 milk Allergy ITCHING Verified 06/10/18 12:53 morphine Allergy RASH Verified 06/10/18 12:53 oxycodone HCl [From Percocet] Allergy RASH Verified 06/10/18 12:53 Physical Exam - Constitutional Appears: Non-toxic, In Acute Distress - Head Exam Head Exam: ATRAUMATIC - Eye Exam Eye Exam: Conjunctival injection Additional comments: legaly blind - ENT Exam ENT Exam: Mucous Membranes Dry - Neck Exam Neck exam: Positive for: Full Rom - Respiratory Exam Respiratory Exam: Decreased Breath Sounds, Rales - Cardiovascular Exam Cardiovascular Exam: Tachycardia, Gallop - GI/Abdominal Exam GI & Abdominal Exam: Tenderness - Extremities Exam Additional comments: bilateral amputation - Back Exam Back exam: CVA tenderness (L) - Neurological Exam Neurological exam: Oriented x3 - Psychiatric Exam Psychiatric exam: Normal Affect - Skin Skin Exam: Pallor Results - Vital Signs Recent Vital Signs: Last Vital Signs Temp 98.1 F 07/02/18 16:40 Pulse 71 07/02/18 16:40 Resp 18 07/02/18 16:40 BP 135/69 07/02/18 16:40 Pulse Ox 96 07/02/18 16:40 - Labs Result Diagrams: 07/02/18 00:23 07/02/18 00:23 Labs: Laboratory Results - last 24 hr 07/02/18 07/02/18 07/02/18 00:08 00:23 00:23 WBC 14.7 H RBC 3.69 L Hgb 11.2 L Hct 34.9 L MCV 94.5 H MCH 30.4 MCHC 32.2 L RDW 18.2 H Plt Count 154 D MPV 10.8 Neut % (Auto) 86.0 H Lymph % (Auto) 8.6 L [place] % (Auto) 3.0 Eos % (Auto) 1.4 Baso % (Auto) 1.0 Neut # (Auto) 12.7 H Lymph # (Auto) 1.3 [place] # (Auto) 0.4 Eos # (Auto) 0.2 Baso # (Auto) 0.1 Neutrophils % (Manual) 82 H Lymphocytes % (Manual) 12 L Monocytes % (Manual) 1 Eosinophils % (Manual) 5 H Platelet Estimate Normal Anisocytosis (manual) Slight PT INR APTT Puncture Site L brac pCO2 32 L pO2 59 L HCO3 21.6 ABG pH 7.40 ABG Total CO2 20.8 L ABG O2 Saturation 91.4 L ABG Base Excess -4.0 L Rush Test Na ABG Potassium 4.5 Sodium 137.0 141 Chloride 103.0 101 Glucose 385 H Lactate 1.0 Liter Flow 2.5 Potassium 5.0 Carbon Dioxide 17 L Anion Gap 28 H BUN 71 H Creatinine 7.9 H* Est GFR ( Amer) 9 Est GFR (Non-Af Amer) 8 POC Glucose (mg/dL) Random Glucose 375 H Calcium 8.7 Total Bilirubin 0.7 AST 18 ALT 15 L D Alkaline Phosphatase 274 H Troponin I 1.5900 H* NT-Pro-B Natriuret Pep 368122 H Total Protein 7.7 Albumin 4.4 Globulin 3.3 Albumin/Globulin Ratio 1.3 Arterial Blood Potassium 4.5 07/02/18 07/02/18 07/02/18 00:23 06:10 11:04 WBC RBC Hgb Hct MCV MCH MCHC RDW Plt Count MPV Neut % (Auto) Lymph % (Auto) [place] % (Auto) Eos % (Auto) Baso % (Auto) Neut # (Auto) Lymph # (Auto) [place] # (Auto) Eos # (Auto) Baso # (Auto) Neutrophils % (Manual) Lymphocytes % (Manual) Monocytes % (Manual) Eosinophils % (Manual) Platelet Estimate Anisocytosis (manual) PT 13.9 H INR 1.3 APTT 37 H Puncture Site pCO2 pO2 HCO3 ABG pH ABG Total CO2 ABG O2 Saturation ABG Base Excess Rush Test ABG Potassium Sodium Chloride Glucose Lactate Liter Flow Potassium Carbon Dioxide Anion Gap BUN Creatinine Est GFR ( Amer) Est GFR (Non-Af Amer) POC Glucose (mg/dL) 376 H 273 H Random Glucose Calcium Total Bilirubin AST ALT Alkaline Phosphatase Troponin I NT-Pro-B Natriuret Pep Total Protein Albumin Globulin Albumin/Globulin Ratio Arterial Blood Potassium Assessment & Plan - Assessment and Plan (Free Text) Assessment: ac rec CHF cad dmid esrf Plan: as per orders - Date & Time Date: 07/02/18 Time: 17:08
[2018-07-02] MEDS ORDERED: (Lantus) Insulin Glargine, Recombinant SC SCH (22:00)
[2018-07-03] MEDS: Albuterol-Ipratrop 3 mg / 0.5 (3 ml) UD INH SCH ×7 (00:35→23:56)
[2018-07-03] MEDS: HYDROmorphone 0.5 mg/0.5 ml ISec IVP PRN ×5 (02:06→21:06)
[2018-07-03] MEDS: (Novolin R) Insulin Human Regular 100 units/ml vial SC SCH ×4 (08:27→21:26)
[2018-07-03] MEDS: Multivitamin Vitamin B Complex (Nephro-Vite) Tab PO SCH (08:27)
[2018-07-03] MEDS: Pantoprazole 20 mg EC Tab PO SCH (09:51)
--- NOTE | 2018-07-03 10:18 | CP.PCM.PN ---
Subjective - Date & Time of Evaluation Date of Evaluation: 07/03/18 Time of Evaluation: 10:17 - Subjective Subjective: MIld productive cough, clinically better No CP Tolerating HD at present BP is lower end of normal Objective - Vital Signs/Intake and Output Vital Signs (last 24 hours): Temp Pulse Resp BP Pulse Ox 98 F 75 20 100/44 L 99 07/03/18 07:40 07/03/18 07:53 07/03/18 07:40 07/03/18 07:40 07/03/18 07:40 - Medications Medications: Current Medications Albuterol/Ipratropium (Duoneb 3 Mg/0.5 Mg (3 Ml) Ud) 3 ml INH RQ4 [facility] Last Admin: 07/03/18 08:02 Dose: 3 ml Amiodarone HCl (Cordarone) 200 mg PO DAILY [facility] Last Admin: 07/03/18 09:50 Dose: Not Given Amlodipine Besylate (Norvasc) 10 mg PO DAILY [facility] Last Admin: 07/03/18 09:51 Dose: Not Given Apixaban (Eliquis) 2.5 mg PO BID [facility] Last Admin: 07/03/18 09:50 Dose: Not Given Aspirin (Aspirin Chewable) 81 mg PO DAILY [facility] Last Admin: 07/03/18 09:49 Dose: Not Given Carvedilol (Coreg) 12.5 mg PO BID [facility] Last Admin: 07/03/18 09:50 Dose: Not Given Dextrose (Dextrose 50% Inj) 0 ml IV STAT PRN; Protocol PRN Reason: Hypoglycemia Protocol Dextrose (Glutose 15) 0 gm PO ONCE PRN; Protocol PRN Reason: Hypoglycemia Protocol Docusate Sodium (Colace) 100 mg PO BID [facility] Last Admin: 07/03/18 09:49 Dose: Not Given Glucagon (Glucagen Diagnostic Kit) 0 mg IM STAT PRN; Protocol PRN Reason: Hypoglycemia Protocol Heparin Sodium (Porcine) (Heparin) 3,700 units IVP TTS [facility] Hydromorphone HCl (Dilaudid) 0.5 mg IVP Q4H PRN PRN Reason: Pain, severe (8-10) Last Admin: 07/03/18 07:41 Dose: 0.5 mg Dextrose (Dextrose 5% In Water 1000 Ml) 1,000 mls @ 0 mls/hr IV .Q0M PRN; Protocol PRN Reason: Hypoglycemia Protocol Ceftriaxone Sodium 1 gm/ (Sodium Chloride) 100 mls @ 100 mls/hr IVPB DAILY [facility]; Protocol Last Admin: 07/02/18 10:37 Dose: 100 mls/hr Insulin Glargine (Lantus) 8 unit SC [facility] Last Admin: 07/02/18 22:05 Dose: 8 units Insulin Human Regular (Novolin R) 0 unit SC [facility]; Protocol Last Admin: 07/03/18 08:27 Dose: 4 units Isosorbide Mononitrate (Imdur) 60 mg PO DAILY [facility] Last Admin: 07/03/18 09:51 Dose: Not Given Levetiracetam (Keppra) 500 mg PO BID [facility] Last Admin: 07/03/18 09:51 Dose: Not Given Losartan Potassium (Cozaar) 50 mg PO QPM [facility] Last Admin: 07/02/18 18:00 Dose: 50 mg Pantoprazole Sodium (Protonix Ec Tab) 20 mg PO DAILY [facility] Last Admin: 07/03/18 09:51 Dose: Not Given Rosuvastatin Calcium (Crestor) 10 mg PO HS [facility] Last Admin: 07/02/18 22:04 Dose: 10 mg Sertraline HCl (Zoloft) 50 mg PO DAILY [facility] Last Admin: 07/03/18 09:52 Dose: Not Given Vitamin B Complex/Vit C/Folic Acid (Nephro-Courtney) 1 tab PO 0800 [facility] Last Admin: 07/03/18 08:27 Dose: 1 tab - Labs Labs: 07/02/18 00:23 07/02/18 00:23 PT 13.9 SECONDS (9.7-12.2) H 07/02/18 00:23 INR 1.3 07/02/18 00:23 APTT 37 SECONDS (21-34) H 07/02/18 00:23 - Constitutional Appears: No Acute Distress - Head Exam Head Exam: ATRAUMATIC, NORMAL INSPECTION, NORMOCEPHALIC - Eye Exam Eye Exam: absent: Normal appearance - ENT Exam ENT Exam: Mucous Membranes Moist, Normal Oropharynx - Respiratory Exam Respiratory Exam: Rhonchi. absent: Wheezes - Cardiovascular Exam Cardiovascular Exam: REGULAR RHYTHM, +S1, +S2, Murmur (B/L BKA) Assessment and Plan - Assessment and Plan (Free Text) Assessment: 38 year old transgender man Brittle diabetes on insulin, labile; Chest pain with abnormal troponin which is chronic due to CHF; ASHD s/p CABG with now atretic grafts, multiple PCI's patient is non revascularizable. Atrial thrombus on Elaquis I would increased to 5 BID, atrial flutter continue amiodarone unable to rhythm control with catheter based therapy due to intracardiac thrombus. ESRD chronic and stable on HD, HTN is chronic and stable on coreg, norvasc. Chronic angina is stable on imdur; can add ranexa if symptoms dictate. ASHD high dose of statin and asprin. PNA: ABX and supportive care HTN: lower range of normal AFIB/Fluuter/Atrial thrombus (right): ideal dose of eliquis is 5mg BID for him.
--- NOTE | 2018-07-03 11:52 | CP.PCM.PN ---
Subjective - Date & Time of Evaluation Date of Evaluation: 07/03/18 Time of Evaluation: 11:51 - Subjective Subjective: Nephrology Consultation Note: Assessment:Stable Pulmonary congestion , fluid overload, pleural effusion, missed HD chronic chest pain, A flutter Diabetic chronic Kidney Disease (E11.22) Hypertensive Chronic Kidney Disease (I12.0) End stage renal disease (N18.6) dependence on hemodialysis (Z99.2) (TTS) via AVF Anemia (D64.9), Hyperphosphatemia (E83.39), Secondary Hyperparathyroidism (E21.1), HTN (I12.0) CAD s/p CABG, diastolic CHF, parox A flutter/fib, intra-cardiac thrombus, hx of Heparin induced thrombocytopenia, hx of seizure, blindness Plan: plan for dialysis today as per TTS schedule Continue with Nephrovite 1 tab/day. no HANNAH with HD . PRBC As needed for anemia, last Hb 11 Continue with phos binders home dose BP control with meds as ordered. on ARB as losartan Glycemic control, Dialysis consistent diet Further work up/management as per primary team Dose meds/antibiotics for ESRD status. Avoid fleets enema/magnesium based laxatives. cardiology following Thanks for allowing me to participate in care of your patient. Will follow patient with you. Please call if any Qs. had d/w team Dr Eric Temple Office: [phone] CC: CP and SOB reason for consult: ESRD HPI: Pt is a 38 y/o transgender with hx of ESRD on hemodialysis (TTS) via permacath, chronic anemia, hyperphosphatemia, secondary hyperparathyroidism, Diabetes Mellitus, hypertension, CAD s/p CABG, diastolic CHF, pA flutter/fib, intra-cardiac thrombus, Heparin induced thrombocytopenia in past presented with complaints of SOB and chronic chest pain x 1 day. pt with recurrent and frequent hospitalizations for same complaints. missed HD yesterday ROS: All other negative except as in HPI. has chronic chest pain, c/o loose stool now better. improved SOB Physical Examination: seen on HD General Appearance: in no acute respiratory distress, co-operative Vitals reviewed and noted as below Head; Atraumatic, normocephalic ENT: no ulcers no thrush. Tongue is midline. Oropharynx: no rash or ulcers. EYES: Pt is blind both eyes Neck; supple no lymphadenopathy, no thyromegaly or bruit Lungs: normal respiratory rate/effort. Breath sounds bilateral b/l decreased at bases with crackles Heart: Normal rate. s1s2 normal. No rub or gallop. Extremities: no edema. No varicose veins. has b/l BKA. Neurological: Patient is awake follow commands no focal deficit Skin: Warm and dry. Normal turgor. No rash. Palpitation: Normal elasticity for age Abdomen: Abdomen is soft. Bowel sounds +. There is no abdominal tenderness, no guarding/rigidity or organomegaly Psych: limited insight and has normal affect/mood MSK: no joint tenderness or swelling. Digits and nails normal, no deformity : kidney or bladder not palpable Access: permacath Labs/imaging reviewed. Past medical history, past surgical history, family history, social history, allergy reviewed and noted as below Family Hx: no hx of CKD. Non contributory Objective - Vital Signs/Intake and Output Vital Signs (last 24 hours): Temp Pulse Resp BP Pulse Ox 97.9 F 67 20 107/63 95 07/03/18 09:20 07/03/18 09:20 07/03/18 09:20 07/03/18 11:20 07/03/18 09:20 - Medications Medications: Current Medications Albuterol/Ipratropium (Duoneb 3 Mg/0.5 Mg (3 Ml) Ud) 3 ml INH RQ4 [facility] Last Admin: 07/03/18 11:27 Dose: Not Given Amiodarone HCl (Cordarone) 200 mg PO DAILY [facility] Last Admin: 07/03/18 09:50 Dose: Not Given Amlodipine Besylate (Norvasc) 10 mg PO DAILY [facility] Last Admin: 07/03/18 09:51 Dose: Not Given Apixaban (Eliquis) 2.5 mg PO BID [facility] Last Admin: 07/03/18 09:50 Dose: Not Given Aspirin (Aspirin Chewable) 81 mg PO DAILY [facility] Last Admin: 07/03/18 09:49 Dose: Not Given Carvedilol (Coreg) 12.5 mg PO BID [facility] Last Admin: 07/03/18 09:50 Dose: Not Given Dextrose (Dextrose 50% Inj) 0 ml IV STAT PRN; Protocol PRN Reason: Hypoglycemia Protocol Dextrose (Glutose 15) 0 gm PO ONCE PRN; Protocol PRN Reason: Hypoglycemia Protocol Docusate Sodium (Colace) 100 mg PO BID [facility] Last Admin: 07/03/18 09:49 Dose: Not Given Glucagon (Glucagen Diagnostic Kit) 0 mg IM STAT PRN; Protocol PRN Reason: Hypoglycemia Protocol Heparin Sodium (Porcine) (Heparin) 3,700 units IVP TTS [facility] Last Admin: 07/03/18 10:51 Dose: 3,700 units Hydromorphone HCl (Dilaudid) 0.5 mg IVP Q4H PRN PRN Reason: Pain, severe (8-10) Last Admin: 07/03/18 07:41 Dose: 0.5 mg Dextrose (Dextrose 5% In Water 1000 Ml) 1,000 mls @ 0 mls/hr IV .Q0M PRN; Protocol PRN Reason: Hypoglycemia Protocol Ceftriaxone Sodium 1 gm/ (Sodium Chloride) 100 mls @ 100 mls/hr IVPB DAILY [facility]; Protocol Last Admin: 07/02/18 10:37 Dose: 100 mls/hr Insulin Glargine (Lantus) 8 unit SC [facility] Last Admin: 07/02/18 22:05 Dose: 8 units Insulin Human Regular (Novolin R) 0 unit SC [facility]; Protocol Last Admin: 07/03/18 08:27 Dose: 4 units Isosorbide Mononitrate (Imdur) 60 mg PO DAILY [facility] Last Admin: 07/03/18 09:51 Dose: Not Given Levetiracetam (Keppra) 500 mg PO BID [facility] Last Admin: 07/03/18 09:51 Dose: Not Given Losartan Potassium (Cozaar) 50 mg PO QPM [facility] Last Admin: 07/02/18 18:00 Dose: 50 mg Pantoprazole Sodium (Protonix Ec Tab) 20 mg PO DAILY [facility] Last Admin: 07/03/18 09:51 Dose: Not Given Rosuvastatin Calcium (Crestor) 10 mg PO HS [facility] Last Admin: 07/02/18 22:04 Dose: 10 mg Sertraline HCl (Zoloft) 50 mg PO DAILY [facility] Last Admin: 07/03/18 09:52 Dose: Not Given Vitamin B Complex/Vit C/Folic Acid (Nephro-Courtney) 1 tab PO 0800 [facility] Last Admin: 07/03/18 08:27 Dose: 1 tab - Labs Labs: 07/02/18 00:23 07/02/18 00:23 PT 13.9 SECONDS (9.7-12.2) H 07/02/18 00: INR 1.3 07/02/18 00:23 APTT 37 SECONDS (21-34) H 07/02/18 00:23
--- NOTE | 2018-07-03 19:53 | CP.PCM.PN ---
Subjective - Date & Time of Evaluation Date of Evaluation: 07/03/18 Time of Evaluation: 19:50 - Subjective Subjective: pt still sob had dialysis today bs hi Objective - Vital Signs/Intake and Output Vital Signs (last 24 hours): Temp Pulse Resp BP Pulse Ox 99.3 F 77 20 100/60 100 07/03/18 15:40 07/03/18 15:40 07/03/18 15:40 07/03/18 15:40 07/03/18 15:40 Intake and Output: 07/03/18 07/04/18 18:59 06:59 Intake Total 400 Balance 400 - Medications Medications: Current Medications Albuterol/Ipratropium (Duoneb 3 Mg/0.5 Mg (3 Ml) Ud) 3 ml INH RQ4 [facility] Last Admin: 07/03/18 15:50 Dose: 3 ml Amiodarone HCl (Cordarone) 200 mg PO DAILY [facility] Last Admin: 07/03/18 09:50 Dose: Not Given Amlodipine Besylate (Norvasc) 10 mg PO DAILY [facility] Last Admin: 07/03/18 09:51 Dose: Not Given Apixaban (Eliquis) 2.5 mg PO BID [facility] Last Admin: 07/03/18 17:03 Dose: 2.5 mg Aspirin (Aspirin Chewable) 81 mg PO DAILY [facility] Last Admin: 07/03/18 09:49 Dose: Not Given Carvedilol (Coreg) 12.5 mg PO BID [facility] Last Admin: 07/03/18 17:04 Dose: Not Given Dextrose (Dextrose 50% Inj) 0 ml IV STAT PRN; Protocol PRN Reason: Hypoglycemia Protocol Dextrose (Glutose 15) 0 gm PO ONCE PRN; Protocol PRN Reason: Hypoglycemia Protocol Docusate Sodium (Colace) 100 mg PO BID [facility] Last Admin: 07/03/18 17:02 Dose: 100 mg Glucagon (Glucagen Diagnostic Kit) 0 mg IM STAT PRN; Protocol PRN Reason: Hypoglycemia Protocol Heparin Sodium (Porcine) (Heparin) 3,700 units IVP TTS [facility] Last Admin: 07/03/18 10:51 Dose: 3,700 units Hydromorphone HCl (Dilaudid) 0.5 mg IVP Q4H PRN PRN Reason: Pain, severe (8-10) Last Admin: 07/03/18 17:02 Dose: 0.5 mg Dextrose (Dextrose 5% In Water 1000 Ml) 1,000 mls @ 0 mls/hr IV .Q0M PRN; Protocol PRN Reason: Hypoglycemia Protocol Ceftriaxone Sodium 1 gm/ (Sodium Chloride) 100 mls @ 100 mls/hr IVPB DAILY [facility]; Protocol Last Admin: 07/03/18 13:50 Dose: 100 mls/hr Insulin Glargine (Lantus) 8 unit SC [facility] Last Admin: 07/02/18 22:05 Dose: 8 units Insulin Human Regular (Novolin R) 0 unit SC [facility]; Protocol Last Admin: 07/03/18 17:03 Dose: 4 units Isosorbide Mononitrate (Imdur) 60 mg PO DAILY [facility] Last Admin: 07/03/18 09:51 Dose: Not Given Levetiracetam (Keppra) 500 mg PO BID [facility] Last Admin: 07/03/18 17:02 Dose: 500 mg Losartan Potassium (Cozaar) 50 mg PO QPM [facility] Last Admin: 07/03/18 17:04 Dose: Not Given Pantoprazole Sodium (Protonix Ec Tab) 20 mg PO DAILY [facility] Last Admin: 07/03/18 09:51 Dose: Not Given Rosuvastatin Calcium (Crestor) 10 mg PO [facility] Last Admin: 07/02/18 22:04 Dose: 10 mg Sertraline HCl (Zoloft) 50 mg PO DAILY [facility] Last Admin: 07/03/18 09:52 Dose: Not Given Vitamin B Complex/Vit C/Folic Acid (Nephro-Courtney) 1 tab PO 0800 [facility] Last Admin: 07/03/18 08:27 Dose: 1 tab - Labs Labs: 07/02/18 00:23 07/02/18 00:23 PT 13.9 SECONDS (9.7-12.2) H 07/02/18 00:23 INR 1.3 07/02/18 00:23 APTT 37 SECONDS (21-34) H 07/02/18 00:23 - Constitutional Appears: Non-toxic - Head Exam Head Exam: ATRAUMATIC - Eye Exam Eye Exam: Conjunctival injection - ENT Exam ENT Exam: Mucous Membranes Moist - Neck Exam Neck Exam: Full ROM - Respiratory Exam Respiratory Exam: Decreased Breath Sounds - Cardiovascular Exam Cardiovascular Exam: REGULAR RHYTHM - GI/Abdominal Exam GI & Abdominal Exam: Normal Bowel Sounds - Back Exam Back Exam: CVA tenderness (L) - Neurological Exam Neurological Exam: Alert, Oriented x3 - Psychiatric Exam Psychiatric exam: Normal Affect - Skin Skin Exam: Pallor Assessment and Plan - Assessment and Plan (Free Text) Assessment: chf cad arythmia dmid uncontroled esrf cont as per orders
[2018-07-03] MEDS: Insulin Detemir 100 units/ml Vial (Levemir) SC SCH (21:33)
[2018-07-04] MEDS: HYDROmorphone 0.5 mg/0.5 ml ISec IVP PRN ×6 (01:32→22:11)
[2018-07-04] MEDS: Albuterol-Ipratrop 3 mg / 0.5 (3 ml) UD INH SCH ×5 (03:04→21:06)
[2018-07-04] MEDS: Multivitamin Vitamin B Complex (Nephro-Vite) Tab PO SCH (08:26)
[2018-07-04] MEDS: (Novolin R) Insulin Human Regular 100 units/ml vial SC SCH ×4 (08:26→21:02)
[2018-07-04] MEDS: Pantoprazole 20 mg EC Tab PO SCH (10:04)
--- NOTE | 2018-07-04 12:24 | CP.PCM.PN ---
Subjective - Date & Time of Evaluation Date of Evaluation: 07/04/18 Time of Evaluation: 12:21 - Subjective Subjective: pt feels weeke shaking bs 94 Objective - Vital Signs/Intake and Output Vital Signs (last 24 hours): Temp Pulse Resp BP Pulse Ox 98.1 F 82 20 111/70 99 07/04/18 07:19 07/04/18 10:03 07/04/18 07:19 07/04/18 10:13 07/04/18 07:19 Intake and Output: 07/04/18 07/04/18 06:59 18:59 Intake Total 500 Balance 500 - Medications Medications: Current Medications Albuterol/Ipratropium (Duoneb 3 Mg/0.5 Mg (3 Ml) Ud) 3 ml INH RQ4 [facility] Last Admin: 07/04/18 07:46 Dose: 3 ml Amiodarone HCl (Cordarone) 200 mg PO DAILY [facility] Last Admin: 07/04/18 10:04 Dose: 200 mg Amlodipine Besylate (Norvasc) 10 mg PO DAILY [facility] Last Admin: 07/04/18 10:04 Dose: 10 mg Apixaban (Eliquis) 2.5 mg PO BID [facility] Last Admin: 07/04/18 10:04 Dose: 2.5 mg Aspirin (Aspirin Chewable) 81 mg PO DAILY [facility] Last Admin: 07/04/18 10:04 Dose: 81 mg Carvedilol (Coreg) 12.5 mg PO BID [facility] Last Admin: 07/04/18 10:13 Dose: 12.5 mg Dextrose (Dextrose 50% Inj) 0 ml IV STAT PRN; Protocol PRN Reason: Hypoglycemia Protocol Dextrose (Glutose 15) 0 gm PO ONCE PRN; Protocol PRN Reason: Hypoglycemia Protocol Docusate Sodium (Colace) 100 mg PO BID [facility] Last Admin: 07/04/18 10:13 Dose: 100 mg Glucagon (Glucagen Diagnostic Kit) 0 mg IM STAT PRN; Protocol PRN Reason: Hypoglycemia Protocol Heparin Sodium (Porcine) (Heparin) 3,700 units IVP TTS [facility] Last Admin: 07/03/18 10:51 Dose: 3,700 units Hydromorphone HCl (Dilaudid) 0.5 mg IVP Q4H PRN PRN Reason: Pain, severe (8-10) Last Admin: 07/04/18 10:05 Dose: 0.5 mg Dextrose (Dextrose 5% In Water 1000 Ml) 1,000 mls @ 0 mls/hr IV .Q0M PRN; Protocol PRN Reason: Hypoglycemia Protocol Ceftriaxone Sodium 1 gm/ (Sodium Chloride) 100 mls @ 100 mls/hr IVPB DAILY [facility]; Protocol Last Admin: 07/04/18 10:07 Dose: 100 mls/hr Insulin Detemir (Levemir) 12 unit SC [facility] Last Admin: 07/03/18 21:33 Dose: 12 units Insulin Human Regular (Novolin R) 0 unit SC [facility]; Protocol Last Admin: 07/04/18 08:26 Dose: 4 units Isosorbide Mononitrate (Imdur) 60 mg PO DAILY [facility] Last Admin: 07/04/18 10:04 Dose: 60 mg Levetiracetam (Keppra) 500 mg PO BID [facility] Last Admin: 07/04/18 10:04 Dose: 500 mg Losartan Potassium (Cozaar) 50 mg PO QPM [facility] Last Admin: 07/03/18 17:04 Dose: Not Given Pantoprazole Sodium (Protonix Ec Tab) 20 mg PO DAILY [facility] Last Admin: 07/04/18 10:04 Dose: 20 mg Rosuvastatin Calcium (Crestor) 10 mg PO [facility] Last Admin: 07/03/18 21:06 Dose: 10 mg Sertraline HCl (Zoloft) 50 mg PO DAILY [facility] Last Admin: 07/04/18 10:04 Dose: 50 mg Vitamin B Complex/Vit C/Folic Acid (Nephro-Courtney) 1 tab PO 0800 [facility] Last Admin: 07/04/18 08:26 Dose: 1 tab - Labs Labs: 07/02/18 00:23 07/02/18 00:23 PT 13.9 SECONDS (9.7-12.2) H 07/02/18 00:23 INR 1.3 07/02/18 00:23 APTT 37 SECONDS (21-34) H 07/02/18 00:23 - Constitutional Appears: Non-toxic - Head Exam Head Exam: NORMAL INSPECTION - Eye Exam Eye Exam: Conjunctival injection - ENT Exam ENT Exam: Mucous Membranes Moist - Neck Exam Neck Exam: Full ROM - Respiratory Exam Respiratory Exam: NORMAL BREATHING PATTERN - Cardiovascular Exam Cardiovascular Exam: REGULAR RHYTHM - GI/Abdominal Exam GI & Abdominal Exam: Normal Bowel Sounds - Rectal Exam Rectal Exam: NORMAL INSPECTION - Extremities Exam Extremities Exam: Normal Inspection - Back Exam Back Exam: NORMAL INSPECTION - Neurological Exam Neurological Exam: Alert, Oriented x3 - Psychiatric Exam Psychiatric exam: Normal Mood - Skin Skin Exam: Normal Color, Pallor Assessment and Plan - Assessment and Plan (Free Text) Assessment: rec chf dmid flactuating esrf Plan: for ben;yalysis tomoro possible d/c after dialysis
--- NOTE | 2018-07-04 15:35 | CP.PCM.PN ---
Subjective - Date & Time of Evaluation Date of Evaluation: 07/04/18 Time of Evaluation: 15:35 - Subjective Subjective: Nephrology Consultation Note: Assessment:Stable Pulmonary congestion , fluid overload, pleural effusion, missed HD chronic chest pain, A flutter Diabetic chronic Kidney Disease (E11.22) Hypertensive Chronic Kidney Disease (I12.0) End stage renal disease (N18.6) dependence on hemodialysis (Z99.2) (TTS) via AVF Anemia (D64.9), Hyperphosphatemia (E83.39), Secondary Hyperparathyroidism (E21.1), HTN (I12.0) CAD s/p CABG, diastolic CHF, parox A flutter/fib, intra-cardiac thrombus, hx of Heparin induced thrombocytopenia, hx of seizure, blindness Plan: plan for dialysis tomorrow as per TTS schedule Continue with Nephrovite 1 tab/day. no HANNAH with HD . PRBC As needed for anemia, last Hb 11 Continue with phos binders home dose BP control with meds as ordered. on ARB as losartan Glycemic control, Dialysis consistent diet Further work up/management as per primary team Dose meds/antibiotics for ESRD status. Avoid fleets enema/magnesium based laxatives. cardiology following Thanks for allowing me to participate in care of your patient. Will follow patient with you. Please call if any Qs. had d/w team Dr Eric Temple Office: [phone] CC: CP and SOB reason for consult: ESRD HPI: Pt is a 38 y/o transgender with hx of ESRD on hemodialysis (TTS) via permacath, chronic anemia, hyperphosphatemia, secondary hyperparathyroidism, Diabetes Mellitus, hypertension, CAD s/p CABG, diastolic CHF, pA flutter/fib, intra-cardiac thrombus, Heparin induced thrombocytopenia in past presented with complaints of SOB and chronic chest pain x 1 day. pt with recurrent and frequent hospitalizations for same complaints. missed HD yesterday ROS: All other negative except as in HPI. has chronic chest pain, c/o loose stool now better. improved SOB Physical Examination: General Appearance: in no acute respiratory distress, co-operative Vitals reviewed and noted as below Head; Atraumatic, normocephalic ENT: no ulcers no thrush. Tongue is midline. Oropharynx: no rash or ulcers. EYES: Pt is blind both eyes Neck; supple no lymphadenopathy, no thyromegaly or bruit Lungs: normal respiratory rate/effort. Breath sounds bilateral b/l decreased at bases with crackles Heart: Normal rate. s1s2 normal. No rub or gallop. Extremities: no edema. No varicose veins. has b/l BKA. Neurological: Patient is awake follow commands no focal deficit Skin: Warm and dry. Normal turgor. No rash. Palpitation: Normal elasticity for age Abdomen: Abdomen is soft. Bowel sounds +. There is no abdominal tenderness, no guarding/rigidity or organomegaly Psych: limited insight and has normal affect/mood MSK: no joint tenderness or swelling. Digits and nails normal, no deformity : kidney or bladder not palpable Access: permacath Labs/imaging reviewed. Past medical history, past surgical history, family history, social history, allergy reviewed and noted as below Family Hx: no hx of CKD. Non contributory Objective - Vital Signs/Intake and Output Vital Signs (last 24 hours): Temp Pulse Resp BP Pulse Ox 98.1 F 82 20 111/70 99 07/04/18 07:19 07/04/18 10:03 07/04/18 07:19 07/04/18 10:13 07/04/18 07:19 Intake and Output: 07/04/18 07/04/18 06:59 18:59 Intake Total 500 Balance 500 - Medications Medications: Current Medications Albuterol/Ipratropium (Duoneb 3 Mg/0.5 Mg (3 Ml) Ud) 3 ml INH RQ4 [facility] Last Admin: 07/04/18 13:37 Dose: Not Given Amiodarone HCl (Cordarone) 200 mg PO DAILY [facility] Last Admin: 07/04/18 10:04 Dose: 200 mg Amlodipine Besylate (Norvasc) 10 mg PO DAILY [facility] Last Admin: 07/04/18 10:04 Dose: 10 mg Apixaban (Eliquis) 2.5 mg PO BID [facility] Last Admin: 07/04/18 10:04 Dose: 2.5 mg Aspirin (Aspirin Chewable) 81 mg PO DAILY [facility] Last Admin: 07/04/18 10:04 Dose: 81 mg Carvedilol (Coreg) 12.5 mg PO BID [facility] Last Admin: 07/04/18 10:13 Dose: 12.5 mg Dextrose (Dextrose 50% Inj) 0 ml IV STAT PRN; Protocol PRN Reason: Hypoglycemia Protocol Dextrose (Glutose 15) 0 gm PO ONCE PRN; Protocol PRN Reason: Hypoglycemia Protocol Docusate Sodium (Colace) 100 mg PO BID [facility] Last Admin: 07/04/18 10:13 Dose: 100 mg Glucagon (Glucagen Diagnostic Kit) 0 mg IM STAT PRN; Protocol PRN Reason: Hypoglycemia Protocol Heparin Sodium (Porcine) (Heparin) 3,700 units IVP TTS [facility] Last Admin: 07/03/18 10:51 Dose: 3,700 units Hydromorphone HCl (Dilaudid) 0.5 mg IVP Q4H PRN PRN Reason: Pain, severe (8-10) Last Admin: 07/04/18 14:07 Dose: 0.5 mg Dextrose (Dextrose 5% In Water 1000 Ml) 1,000 mls @ 0 mls/hr IV .Q0M PRN; Protocol PRN Reason: Hypoglycemia Protocol Ceftriaxone Sodium 1 gm/ (Sodium Chloride) 100 mls @ 100 mls/hr IVPB DAILY [facility]; Protocol Last Admin: 07/04/18 10:07 Dose: 100 mls/hr Insulin Detemir (Levemir) 12 unit SC HS [facility] Last Admin: 07/03/18 21:33 Dose: 12 units Insulin Human Regular (Novolin R) 0 unit SC [facility]; Protocol Last Admin: 07/04/18 12:30 Dose: Not Given Isosorbide Mononitrate (Imdur) 60 mg PO DAILY [facility] Last Admin: 07/04/18 10:04 Dose: 60 mg Levetiracetam (Keppra) 500 mg PO BID [facility] Last Admin: 07/04/18 10:04 Dose: 500 mg Losartan Potassium (Cozaar) 50 mg PO QPM [facility] Last Admin: 07/03/18 17:04 Dose: Not Given Pantoprazole Sodium (Protonix Ec Tab) 20 mg PO DAILY [facility] Last Admin: 07/04/18 10:04 Dose: 20 mg Rosuvastatin Calcium (Crestor) 10 mg PO HS [facility] Last Admin: 07/03/18 21:06 Dose: 10 mg Sertraline HCl (Zoloft) 50 mg PO DAILY [facility] Last Admin: 07/04/18 10:04 Dose: 50 mg Vitamin B Complex/Vit C/Folic Acid (Nephro-Courtney) 1 tab PO 0800 [facility] Last Admin: 07/04/18 08:26 Dose: 1 tab - Labs Labs: 07/02/18 00:23 07/02/18 00:23 PT 13.9 SECONDS (9.7-12.2) H 07/02/18 00:23 INR 1.3 07/02/18 00:23 APTT 37 SECONDS (21-34) H 07/02/18 00:23
[2018-07-04] MEDS: Insulin Detemir 100 units/ml Vial (Levemir) SC SCH (21:18)
[2018-07-05] MEDS: Albuterol-Ipratrop 3 mg / 0.5 (3 ml) UD INH SCH ×5 (00:15→15:36)
[2018-07-05] MEDS: HYDROmorphone 0.5 mg/0.5 ml ISec IVP PRN ×4 (02:17→14:48)
[2018-07-05] MEDS: Multivitamin Vitamin B Complex (Nephro-Vite) Tab PO SCH (09:00)
[2018-07-05] MEDS: (Novolin R) Insulin Human Regular 100 units/ml vial SC SCH ×3 (09:02→16:39)
[2018-07-05] MEDS: Pantoprazole 20 mg EC Tab PO SCH (09:49)
--- NOTE | 2018-07-05 12:44 | CP.PCM.PN ---
Subjective - Date & Time of Evaluation Date of Evaluation: 07/05/18 Time of Evaluation: 12:42 - Subjective Subjective: having dialysis now less sob bs is 165 Objective - Vital Signs/Intake and Output Vital Signs (last 24 hours): Temp Pulse Resp BP Pulse Ox 97.9 F 73 16 148/58 L 98 07/05/18 10:00 07/05/18 10:40 07/05/18 10:40 07/05/18 10:40 07/05/18 10:40 Intake and Output: 07/05/18 07/05/18 06:59 18:59 Intake Total 300 Balance 300 - Medications Medications: Current Medications Albuterol/Ipratropium (Duoneb 3 Mg/0.5 Mg (3 Ml) Ud) 3 ml INH RQ4 [facility] Last Admin: 07/05/18 09:03 Dose: Not Given Amiodarone HCl (Cordarone) 200 mg PO DAILY [facility] Last Admin: 07/05/18 09:47 Dose: Not Given Amlodipine Besylate (Norvasc) 10 mg PO DAILY [facility] Last Admin: 07/05/18 09:49 Dose: Not Given Apixaban (Eliquis) 2.5 mg PO BID [facility] Last Admin: 07/05/18 09:48 Dose: Not Given Aspirin (Aspirin Chewable) 81 mg PO DAILY [facility] Last Admin: 07/05/18 09:47 Dose: Not Given Carvedilol (Coreg) 12.5 mg PO BID [facility] Last Admin: 07/05/18 09:48 Dose: Not Given Dextrose (Dextrose 50% Inj) 0 ml IV STAT PRN; Protocol PRN Reason: Hypoglycemia Protocol Dextrose (Glutose 15) 0 gm PO ONCE PRN; Protocol PRN Reason: Hypoglycemia Protocol Docusate Sodium (Colace) 100 mg PO BID [facility] Last Admin: 07/05/18 09:47 Dose: Not Given Glucagon (Glucagen Diagnostic Kit) 0 mg IM STAT PRN; Protocol PRN Reason: Hypoglycemia Protocol Heparin Sodium (Porcine) (Heparin) 3,700 units IVP TTS [facility] Last Admin: 07/03/18 10:51 Dose: 3,700 units Hydromorphone HCl (Dilaudid) 0.5 mg IVP Q4H PRN PRN Reason: Pain, severe (8-10) Last Admin: 07/05/18 10:39 Dose: 0.5 mg Ceftriaxone Sodium 1 gm/ (Sodium Chloride) 100 mls @ 100 mls/hr IVPB DAILY [facility]; Protocol Last Admin: 07/04/18 10:07 Dose: 100 mls/hr Insulin Detemir (Levemir) 12 unit SC [facility] Last Admin: 07/04/18 21:18 Dose: 12 units Insulin Human Regular (Novolin R) 0 unit SC [facility]; Protocol Last Admin: 07/05/18 09:02 Dose: 3 units Isosorbide Mononitrate (Imdur) 60 mg PO DAILY [facility] Last Admin: 07/05/18 09:48 Dose: Not Given Levetiracetam (Keppra) 500 mg PO BID [facility] Last Admin: 07/05/18 09:48 Dose: Not Given Losartan Potassium (Cozaar) 50 mg PO QPM [facility] Last Admin: 07/04/18 18:02 Dose: Not Given Pantoprazole Sodium (Protonix Ec Tab) 20 mg PO DAILY [facility] Last Admin: 07/05/18 09:49 Dose: Not Given Rosuvastatin Calcium (Crestor) 10 mg PO HS [facility] Last Admin: 07/04/18 21:18 Dose: 10 mg Sertraline HCl (Zoloft) 50 mg PO DAILY [facility] Last Admin: 07/05/18 09:49 Dose: Not Given Vitamin B Complex/Vit C/Folic Acid (Nephro-Courtney) 1 tab PO 0800 [facility] Last Admin: 07/05/18 09:00 Dose: 1 tab - Labs Labs: 07/02/18 00:23 07/02/18 00:23 PT 13.9 SECONDS (9.7-12.2) H 07/02/18 00:23 INR 1.3 07/02/18 00:23 APTT 37 SECONDS (21-34) H 07/02/18 00:23 - Constitutional Appears: Non-toxic - Head Exam Head Exam: NORMAL INSPECTION - Eye Exam Eye Exam: Conjunctival injection - ENT Exam ENT Exam: Mucous Membranes Moist - Neck Exam Neck Exam: Full ROM - Respiratory Exam Respiratory Exam: Decreased Breath Sounds - Cardiovascular Exam Cardiovascular Exam: REGULAR RHYTHM - Extremities Exam Extremities Exam: Normal Inspection Additional comments: bilateral amputation - Back Exam Back Exam: NORMAL INSPECTION - Neurological Exam Neurological Exam: Oriented x3 - Psychiatric Exam Psychiatric exam: Normal Mood - Skin Skin Exam: Pallor Assessment and Plan - Assessment and Plan (Free Text) Assessment: chf cad dmid esrf castro chan d/c Plan: deandre
[2018-07-05 13:59] VITALS: RESP 18; O2SAT 100
--- NOTE | 2018-07-05 14:54 | CP.PCM.PN ---
Subjective - Date & Time of Evaluation Date of Evaluation: 07/05/18 Time of Evaluation: 14:54 - Subjective Subjective: PATIENT SEEN AND EXAMINED AT THE BEDSIDE Objective - Vital Signs/Intake and Output Vital Signs (last 24 hours): Temp Pulse Resp BP Pulse Ox 97.8 F 80 18 162/84 H 100 07/05/18 13:58 07/05/18 13:58 07/05/18 13:58 07/05/18 13:58 07/05/18 13:58 Intake and Output: 07/05/18 07/05/18 06:59 18:59 Intake Total 300 Balance 300 - Medications Medications: Current Medications Albuterol/Ipratropium (Duoneb 3 Mg/0.5 Mg (3 Ml) Ud) 3 ml INH RQ4 [facility] Last Admin: 07/05/18 12:53 Dose: Not Given Amiodarone HCl (Cordarone) 200 mg PO DAILY [facility] Last Admin: 07/05/18 09:47 Dose: Not Given Amlodipine Besylate (Norvasc) 10 mg PO DAILY [facility] Last Admin: 07/05/18 09:49 Dose: Not Given Apixaban (Eliquis) 2.5 mg PO BID [facility] Last Admin: 07/05/18 09:48 Dose: Not Given Aspirin (Aspirin Chewable) 81 mg PO DAILY [facility] Last Admin: 07/05/18 09:47 Dose: Not Given Carvedilol (Coreg) 12.5 mg PO BID [facility] Last Admin: 07/05/18 09:48 Dose: Not Given Dextrose (Dextrose 50% Inj) 0 ml IV STAT PRN; Protocol PRN Reason: Hypoglycemia Protocol Dextrose (Glutose 15) 0 gm PO ONCE PRN; Protocol PRN Reason: Hypoglycemia Protocol Docusate Sodium (Colace) 100 mg PO BID [facility] Last Admin: 07/05/18 09:47 Dose: Not Given Glucagon (Glucagen Diagnostic Kit) 0 mg IM STAT PRN; Protocol PRN Reason: Hypoglycemia Protocol Heparin Sodium (Porcine) (Heparin) 3,700 units IVP TTS [facility] Last Admin: 07/03/18 10:51 Dose: 3,700 units Hydromorphone HCl (Dilaudid) 0.5 mg IVP Q4H PRN PRN Reason: Pain, severe (8-10) Last Admin: 07/05/18 14:48 Dose: 0.5 mg Ceftriaxone Sodium 1 gm/ (Sodium Chloride) 100 mls @ 100 mls/hr IVPB DAILY [facility]; Protocol Last Admin: 07/05/18 13:59 Dose: 100 mls/hr Insulin Detemir (Levemir) 12 unit SC [facility] Last Admin: 07/04/18 21:18 Dose: 12 units Insulin Human Regular (Novolin R) 0 unit SC [facility]; Protocol Last Admin: 07/05/18 14:00 Dose: 2 units Isosorbide Mononitrate (Imdur) 60 mg PO DAILY [facility] Last Admin: 07/05/18 09:48 Dose: Not Given Levetiracetam (Keppra) 500 mg PO BID [facility] Last Admin: 07/05/18 09:48 Dose: Not Given Losartan Potassium (Cozaar) 50 mg PO QPM [facility] Last Admin: 07/04/18 18:02 Dose: Not Given Pantoprazole Sodium (Protonix Ec Tab) 20 mg PO DAILY [facility] Last Admin: 07/05/18 09:49 Dose: Not Given Rosuvastatin Calcium (Crestor) 10 mg PO HS [facility] Last Admin: 07/04/18 21:18 Dose: 10 mg Sertraline HCl (Zoloft) 50 mg PO DAILY [facility] Last Admin: 07/05/18 09:49 Dose: Not Given Vitamin B Complex/Vit C/Folic Acid (Nephro-Courtney) 1 tab PO 0800 [facility] Last Admin: 07/05/18 09:00 Dose: 1 tab - Labs Labs: 07/02/18 00:23 07/02/18 00:23 PT 13.9 SECONDS (9.7-12.2) H 07/02/18 00:23 INR 1.3 07/02/18 00:23 APTT 37 SECONDS (21-34) H 07/02/18 00:23 Assessment and Plan - Assessment and Plan (Free Text) Assessment: patient clinically improved with HD and hemodianamically stable Patient just completed HD today and vss stable and no events reported on Monitor D/w Li cleared for discharge home today and f/u HD outpatient
--- NOTE | 2018-07-05 15:23 | CP.PCM.PN ---
Subjective - Date & Time of Evaluation Date of Evaluation: 07/05/18 Time of Evaluation: 15:22 - Subjective Subjective: Events reviewed. Objective - Vital Signs/Intake and Output Vital Signs (last 24 hours): Temp Pulse Resp BP Pulse Ox 97.8 F 80 18 162/84 H 100 07/05/18 13:58 07/05/18 13:58 07/05/18 13:58 07/05/18 13:58 07/05/18 13:58 Intake and Output: 07/05/18 07/05/18 06:59 18:59 Intake Total 300 Balance 300 - Medications Medications: Current Medications Albuterol/Ipratropium (Duoneb 3 Mg/0.5 Mg (3 Ml) Ud) 3 ml INH RQ4 [facility] Last Admin: 07/05/18 12:53 Dose: Not Given Amiodarone HCl (Cordarone) 200 mg PO DAILY [facility] Last Admin: 07/05/18 09:47 Dose: Not Given Amlodipine Besylate (Norvasc) 10 mg PO DAILY [facility] Last Admin: 07/05/18 09:49 Dose: Not Given Apixaban (Eliquis) 2.5 mg PO BID [facility] Last Admin: 07/05/18 09:48 Dose: Not Given Aspirin (Aspirin Chewable) 81 mg PO DAILY [facility] Last Admin: 07/05/18 09:47 Dose: Not Given Carvedilol (Coreg) 12.5 mg PO BID [facility] Last Admin: 07/05/18 09:48 Dose: Not Given Dextrose (Dextrose 50% Inj) 0 ml IV STAT PRN; Protocol PRN Reason: Hypoglycemia Protocol Dextrose (Glutose 15) 0 gm PO ONCE PRN; Protocol PRN Reason: Hypoglycemia Protocol Docusate Sodium (Colace) 100 mg PO BID [facility] Last Admin: 07/05/18 09:47 Dose: Not Given Glucagon (Glucagen Diagnostic Kit) 0 mg IM STAT PRN; Protocol PRN Reason: Hypoglycemia Protocol Heparin Sodium (Porcine) (Heparin) 3,700 units IVP TTS [facility] Last Admin: 07/03/18 10:51 Dose: 3,700 units Hydromorphone HCl (Dilaudid) 0.5 mg IVP Q4H PRN PRN Reason: Pain, severe (8-10) Last Admin: 07/05/18 14:48 Dose: 0.5 mg Ceftriaxone Sodium 1 gm/ (Sodium Chloride) 100 mls @ 100 mls/hr IVPB DAILY [facility]; Protocol Last Admin: 07/05/18 13:59 Dose: 100 mls/hr Insulin Detemir (Levemir) 12 unit SC [facility] Last Admin: 07/04/18 21:18 Dose: 12 units Insulin Human Regular (Novolin R) 0 unit SC ACHS [facility]; Protocol Last Admin: 07/05/18 14:00 Dose: 2 units Isosorbide Mononitrate (Imdur) 60 mg PO DAILY [facility] Last Admin: 07/05/18 09:48 Dose: Not Given Levetiracetam (Keppra) 500 mg PO BID [facility] Last Admin: 07/05/18 09:48 Dose: Not Given Losartan Potassium (Cozaar) 50 mg PO QPM [facility] Last Admin: 07/04/18 18:02 Dose: Not Given Pantoprazole Sodium (Protonix Ec Tab) 20 mg PO DAILY [facility] Last Admin: 07/05/18 09:49 Dose: Not Given Rosuvastatin Calcium (Crestor) 10 mg PO HS [facility] Last Admin: 07/04/18 21:18 Dose: 10 mg Sertraline HCl (Zoloft) 50 mg PO DAILY [facility] Last Admin: 07/05/18 09:49 Dose: Not Given Vitamin B Complex/Vit C/Folic Acid (Nephro-Courtney) 1 tab PO 0800 [facility] Last Admin: 07/05/18 09:00 Dose: 1 tab - Labs Labs: 07/02/18 00:23 07/02/18 00:23 PT 13.9 SECONDS (9.7-12.2) H 07/02/18 00:23 INR 1.3 07/02/18 00:23 APTT 37 SECONDS (21-34) H 07/02/18 00:23 - Constitutional Appears: Cachectic, Chronically Ill - Eye Exam Eye Exam: absent: Scleral icterus - ENT Exam ENT Exam: Mucous Membranes Moist, Normal External Ear Exam - Respiratory Exam Respiratory Exam: Clear to Ausculation Bilateral, NORMAL BREATHING PATTERN - Cardiovascular Exam Cardiovascular Exam: Irregular Rhythm, RRR, +S1, +S2, +S4, Murmur. absent: JVD - GI/Abdominal Exam GI & Abdominal Exam: Normal Bowel Sounds. absent: Organomegaly Assessment and Plan - Assessment and Plan (Free Text) Assessment: 38 year old transgender man Brittle diabetes on insulin, labile; Chest pain with abnormal troponin which is chronic due to CHF; ASHD s/p CABG with now atretic grafts, multiple PCI's patient is non revascularizable. Atrial thrombus on Elaquis I would increased to 5 BID, atrial flutter continue amiodarone unable to rhythm control with catheter based therapy due to intracardiac thrombus. ESRD chronic and stable on HD, HTN is chronic and stable on coreg, norvasc. Chronic angina is stable on imdur; can add ranexa if symptoms dictate. ASHD high dose of statin and asprin. PNA: ABX and supportive care HTN: lower range of normal AFIB/Fluuter/Atrial thrombus (right): ideal dose of eliquis is 5mg BID for him.
[2018-07-05 15:31] VITALS: BP 130/66; PULSE 77; TEMP 98.3
--- NOTE | 2018-07-05 21:59 | CP.PCM.PN ---
Subjective - Date & Time of Evaluation Date of Evaluation: 07/05/18 Time of Evaluation: 21:58 - Subjective Subjective: Assessment:Stable Pulmonary congestion , fluid overload, pleural effusion, missed HD chronic chest pain, A flutter Diabetic chronic Kidney Disease (E11.22) Hypertensive Chronic Kidney Disease (I12.0) End stage renal disease (N18.6) dependence on hemodialysis (Z99.2) (TTS) via AVF Anemia (D64.9), Hyperphosphatemia (E83.39), Secondary Hyperparathyroidism (E21.1), HTN (I12.0) CAD s/p CABG, diastolic CHF, parox A flutter/fib, intra-cardiac thrombus, hx of Heparin induced thrombocytopenia, hx of seizure, blindness Plan: plan for dialysis today per TTS schedule Continue with Nephrovite 1 tab/day. no HANNAH with HD . PRBC As needed for anemia Continue with phos binders BP control with meds as ordered. on ARB as losartan Glycemic control, Dialysis consistent diet Physical Examination: General Appearance: in no acute respiratory distress, co-operative Vitals reviewed and noted as below Head; Atraumatic, normocephalic ENT: no ulcers no thrush. Tongue is midline. Oropharynx: no rash or ulcers. EYES: Pt is blind both eyes Neck; supple Lungs: normal respiratory rate/effort. Breath sounds bilateral b/l decreased at bases with crackles Heart: Normal rate. s1s2 normal. Extremities: no edema. No varicose veins. has b/l BKA. Neurological: Patient is awake follow commands no focal deficit Skin: Warm and dry. Normal turgor. No rash. Abdomen: Abdomen is soft. Bowel sounds +. There is no abdominal tenderness, no guarding/rigidity or organomegaly Psych: limited insight and has normal affect/mood MSK: no joint tenderness or swelling. Access: permacath Objective - Vital Signs/Intake and Output Vital Signs (last 24 hours): Temp Pulse Resp BP Pulse Ox 98.3 F 77 18 130/66 100 07/05/18 15:00 07/05/18 15:00 07/05/18 15:00 07/05/18 15:00 07/05/18 15:00 Intake and Output: 07/05/18 07/06/18 18:59 05:59 Intake Total 200 Balance 200 - Labs Labs: 07/02/18 00:23 07/02/18 00:23 PT 13.9 SECONDS (9.7-12.2) H 07/02/18 00:23 INR 1.3 07/02/18 00:23 APTT 37 SECONDS (21-34) H 07/02/18 00:23
--- NOTE | 2018-07-09 17:14 | IP.NPCORE ---
Heart Failure Core Measure RAÚL Inhibitor Prescribed: No Contraindication/Reason for not providing: ARB Beta-Andrew Prescribed: Carvedilol Angiotensin II Receptor Andrew Prescribed: Yes AnticoagulationTherapy for Atrial Fibrillation/Atrialflutter: Yes Implantable Cardioverter Defibrillator Therapy: No Contraindication/Reason for not providing: NOT INDICATED BY THE [employer] OPERATIONS COORDINATOR Cardiac Resynchronization Therapy Prescribed: No Contraindication/Reason for not providing: NOT INDICATED BY THE [employer]ANCH OPERATIONS COORDINATOR - Follow up Will be discharged to: Home Follow Up Date (must be within 7 days from discharge): 07/10/18 Follow Up Time: 09:00
--- NOTE | 2018-07-16 10:48 | CP.PCM.CON ---
History of Present Illness - History of Present Illness History of Present Illness: CC: Shortness of breath HPI: 1. ESRD chronic and stable on HD 2. HTN is chornic and stable on coreg, norvasc 3. Angina chornic and stable s/p CABG now with atretic grafts s/p PCI if RCA and stable on imdur 4. Severe PVD s/p bilateral BKA 4. DM brittle labile sugers Past Patient History - Infectious Disease Hx of Infectious Diseases: None - Tetanus Immunizations Tetanus Immunization: >10 years Ago - Past Medical History & Family History Past Medical History?: Yes - Past Social History Smoking Status: Never Smoked - CARDIAC Hx Atrial Fibrillation: Yes Hx Cardia Arrhythmia: Yes Hx Congestive Heart Failure: Yes Hx Hypercholesterolemia: Yes Hx Hypertension: Yes - PULMONARY Hx Asthma: Yes Hx Bronchitis: Yes Hx Chronic Obstructive Pulmonary Disease (COPD): Yes Hx Pneumonia: Yes - NEUROLOGICAL Hx Alzheimer's Disease: Yes Hx Seizures: Yes - HEENT Hx HEENT Problems: Yes Hx Blind: Yes Hx Cataracts: Yes - RENAL Hx Chronic Kidney Disease: Yes Hx Kidney Stones: No - ENDOCRINE/METABOLIC Hx Hyperthyroidism: No Hx Hypothyroidism: Yes - HEMATOLOGICAL/ONCOLOGICAL Hx Anemia: Yes - INTEGUMENTARY Hx Dermatological Problems: No - MUSCULOSKELETAL/RHEUMATOLOGICAL Hx Arthritis: Yes - GASTROINTESTINAL Hx Gall Bladder Disease: Yes Hx Gastritis: Yes - GENITOURINARY/GYNECOLOGICAL Hx Sexually Transmitted Disorders: No - PSYCHIATRIC Hx Anxiety: Yes Hx Depression: Yes Hx Substance Use: No - SURGICAL HISTORY Hx Cholecystectomy: Yes (2011) 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/2009) Hx Coronary Stent: Yes - ANESTHESIA Hx Anesthesia: Yes Hx Anesthesia Reactions: No Hx Malignant Hyperthermia: No Meds Allergies/Adverse Reactions: Allergies Allergy/AdvReac Type Severity Reaction Status Date / Time acetaminophen [From Percocet] Allergy RASH Verified 07/15/18 09:46 atenolol Allergy RASH Verified 07/15/18 09:46 digoxin Allergy RASH Verified 07/15/18 09:46 milk Allergy ITCHING Verified 07/15/18 09:46 morphine Allergy RASH Verified 07/15/18 09:46 oxycodone HCl [From Percocet] Allergy RASH Verified 07/15/18 09:46 Results - Vital Signs Recent Vital Signs: Last Vital Signs Temp 98.3 F 07/05/18 15:00 Pulse 77 07/05/18 15:00 Resp 18 07/05/18 15:00 BP 130/66 07/05/18 15:00 Pulse Ox 100 07/05/18 15:00 - Labs Result Diagrams: 07/02/18 00:23 07/02/18 00:23 Assessment & Plan - Assessment and Plan (Free Text) Assessment: 38 year old transgender man Brittle diabetes on insulin, labile; Chest pain with abnormal troponin which is chronic due to CHF; ASHD s/p CABG with now atretic grafts, multiple PCI's patient is non revascularizable. Atrial thrombus on Elaquis I would increased to 5 BID, atrial flutter continue amiodarone unable to rhythm control with catheter based therapy due to intracardiac thrombus. ESRD chronic and stable on HD, HTN is chronic and stable on coreg, norvasc. Chronic angina is stable on imdur; can add ranexa if symptoms dictate. ASHD high dose of statin and asprin.
== END 2018-07-05 18:20 | disposition home or self-care (01) | DRG 194 ==
LOC: C.ER 23:11 → C.5S 07-02 02:39
PROVIDERS: ADMIT Internal Medicine; ATTEND Internal Medicine
PROC: 5A1D70Z Performance of Urinary Filtration, Intermittent, Less than 6 Hours Per Day (ICD-10-PCS; principal; 2018-07-02)
PROC: 5A1D70Z Performance of Urinary Filtration, Intermittent, Less than 6 Hours Per Day (ICD-10-PCS; 2018-07-03)
PROC: 5A1D70Z Performance of Urinary Filtration, Intermittent, Less than 6 Hours Per Day (ICD-10-PCS; 2018-07-04)
DX: I13.2 Hypertensive heart and chronic kidney disease with heart failure and with stage 5 chronic kidney disease, or end stage renal disease (principal); I50.32 Chronic diastolic (congestive) heart failure; E11.22 Type 2 diabetes mellitus with diabetic chronic kidney disease; N18.6 End stage renal disease; I48.92 Unspecified atrial flutter; J44.0 Chronic obstructive pulmonary disease with (acute) lower respiratory infection; D75.82 Heparin induced thrombocytopenia (HIT); E11.51 Type 2 diabetes mellitus with diabetic peripheral angiopathy without gangrene; J44.9 Chronic obstructive pulmonary disease, unspecified; N25.81 Secondary hyperparathyroidism of renal origin; F64.9 Gender identity disorder, unspecified; I25.119 Atherosclerotic heart disease of native coronary artery with unspecified angina pectoris; I48.91 Unspecified atrial fibrillation; G89.29 Other chronic pain; F02.80 Dementia in other diseases classified elsewhere, unspecified severity, without behavioral disturbance, psychotic disturbance, mood disturbance, and anxiety; G30.9 Alzheimer's disease, unspecified; Z95.1 Presence of aortocoronary bypass graft; Z99.2 Dependence on renal dialysis; E83.39 Other disorders of phosphorus metabolism; Z79.4 Long term (current) use of insulin; H54.7 Unspecified visual loss; Z87.01 Personal history of pneumonia (recurrent); Z86.73 Personal history of transient ischemic attack (TIA), and cerebral infarction without residual deficits; Z89.511 Acquired absence of right leg below knee; Z89.512 Acquired absence of left leg below knee

== ENCOUNTER 2018-07-15 09:28 | Inpatient (IN) | payer OTHER ==
[2018-07-15 09:30] VITALS: PULSE 110; BMI 18.8
--- NOTE | 2018-07-15 10:20 | C.PDOC ---
History Of Present Illness 38-YEAR-OLD MALE, PRESENTS TO THE EMERGENCY DEPARTMENT WITH COMPLAINTS OF WORSENING SOB X 3 DAYS. PS ONLY TOOK OFF 4 L DURING ROUTINE HD ON 07/12. PLEURITIC PAIN. RECENT DC w/PMHx of ESRD on HD (T,T,Sat), B/L BKA, chronic chest pain, Aflutter, CAD s/p CABG, diastolic CHF, hx of seizure, blindness CTA B/L NO W/R/R Time Seen by Provider: 07/15/18 09:50 Chief Complaint (Nursing): Shortness Of Breath History Per: Patient History/Exam Limitations: no limitations Past Medical History Reviewed: Historical Data, Nursing Documentation, Vital Signs Vital Signs: Last Vital Signs Temp 95.3 F L 07/15/18 09:38 Pulse 97 H 07/15/18 09:38 Resp 29 H 07/15/18 09:38 BP Pulse Ox 91 L 07/15/18 09:38 - Medical History PMH: Alzheimer's Disease, Anemia, Anxiety, Arthritis, Asthma, Atrial Fibrillation, Bronchitis, CAD, Cardia Arrhythmia, CHF, COPD, CVA, Depression, Diabetes, Deep Vein Thrombosis, Gastritis, Gastrointestinal Ulcer, Gall Bladder Disease, HTN, Hypercholesterolemia, Hypothyroidism, Pneumonia, End Stage Renal Disease, Chronic Kidney Disease, Seizures Surgical History: CABG (12/2009), Cholecystectomy (2011), Coronary Stent - [facility] (07/02/18) ABDOMINAL WALL SINOGRAM (12/31/13) ASSISTANCE WITH RESPIRATORY VENTILATION, 24-96 HRS, CPAP (05/31/18) C.A.T. SCAN OF ABDOMEN (10/31/13) CENTRAL VENOUS CATHETER PLACEMENT WITH GUIDANCE (02/10/15) CHANGE OTHER DEVICE IN TRUNK SUBCU/FASCIA, PATIENT ACCESS MANAGER APPROACH (06/01/17) DILATE R ANT TIB ART W DRUG-ELUT INTRALUM, PERC (08/12/15) DILATION OF LEFT FEMORAL ARTERY, PERCUTANEOUS APPROACH (07/04/16) DILATION OF RIGHT FEMORAL ARTERY, PERCUTANEOUS APPROACH (08/12/15) DILATION OF RIGHT POPLITEAL ARTERY, PERCUTANEOUS APPROACH (08/12/15) DX ULTRASOUND-HEART (01/05/13) ENTERAL INFUSION OF CONCENTRATED NUT. SUBSTANCES (06/28/13) EXCIS DEBRIDE OF WOUND, INFECT, OR BURN (08/03/14) EXCISION OF STOMACH, ENDO, DIAGN (03/03/17) EXTIRPATION OF MATTER FROM L FEM ART, PERC APPROACH (07/04/16) EXTIRPATION OF MATTER FROM R FEM ART, PERC APPROACH (08/12/15) EXTIRPATION OF MATTER FROM R POPL ART, PERC APPROACH (08/12/15) FLUOROSCOPY OF L LOW EXTREM ART USING L OSM CONTRAST (08/12/15) FLUOROSCOPY OF R LOW EXTREM ART USING L OSM CONTRAST (08/12/15) FLUOROSCOPY OF RIGHT JUGULAR VEINS, GUIDANCE (06/01/17) FREE SKIN GRAFT NEC (08/03/14) HEAD SOFT TISS X-RAY NEC (04/15/13) HEMODIALYSIS (04/28/15) INCIS W REM OF FORIEGN BODY OR DEV FROM SKIN & SUBCUT TISSUE (08/08/13) INSERT INFUSION DEV IN R INT JUGULAR VEIN, PERC (06/01/17) INSERTION OF INFUSION DEV INTO R SUBCLAV VEIN, PERC APPROACH (01/19/16) INSERTION OF INFUSION DEV INTO SUP VENA CAVA, PERC APPROACH (01/07/18) INSPECTION OF UPPER INTESTINAL TRACT, ENDO (03/03/17) INTRODUCE OF OTH THROMBOLYTIC INTO PERIPH ART, PERC APPROACH (08/12/15) LAPAROSCOPIC CHOLECYSTECTOMY (09/21/13) LOC EXC LES METATAR/TAR (06/01/14) PACKED CELL TRANSFUSION (06/01/14) PERCUTAN LIVER ASPIRAT (12/31/13) PERFORMANCE OF URINARY FILTRATION, MULTIPLE (05/17/17) PERFORMANCE OF URINARY FILTRATION, SINGLE (12/18/16) SKIN & SUBQ INCISION NEC (10/24/14) TETANUS TOXOID ADMINIST (06/13/14) TRANSFUSE NONAUT RED BLOOD CELLS IN PERIPH VEIN, PERC (04/09/17) ULTRASONOGRAPHY OF RIGHT AND LEFT HEART (04/09/17) ULTRASONOGRAPHY OF SUPERIOR VENA CAVA, GUIDANCE (01/07/18) VENOUS CATHETERIZATION FOR RENAL DIALYSIS (08/08/13) VENOUS CATHETERIZATION NEC (04/30/13) Family History: States: No Known Family Hx - Social History Hx Tobacco Use: No Hx Alcohol Use: No Hx Substance Use: No - Immunization History Hx Tetanus Toxoid Vaccination: Yes Hx Influenza Vaccination: Yes Hx Pneumococcal Vaccination: Yes Review Of Systems Constitutional: Negative for: Fever Cardiovascular: Negative for: Chest Pain Respiratory: Positive for: Shortness of Breath Gastrointestinal: Negative for: Vomiting Physical Exam - Physical Exam Appears: Non-toxic, No Acute Distress Skin: Warm, Dry, No Rash Head: Atraumatic, Normacephalic Eye(s): bilateral: Normal Inspection Nose: Normal Oral Mucosa: Moist Lips: Normal Appearing Neck: Normal ROM Chest: Symmetrical Cardiovascular: Rhythm Regular, No Murmur Respiratory: Normal Breath Sounds, No Accessory Muscle Use, No Rales, No Rhonchi, No Wheezing Gastrointestinal/Abdominal: Soft, No Tenderness Extremity: Normal ROM, No Deformity Neurological/Psych: Oriented x3, Normal Speech ED Course And Treatment - Laboratory Results Result Diagrams: 07/15/18 10:50 07/15/18 11:21 ECG: Interpreted By Me ECG Rhythm: Sinus Rhythm ECG Interpretation: No Acute Changes Rate From EC O2 Sat by Pulse Oximetry: 91 Pulse Ox Interpretation: Normal (RA) - Radiology CXR: Viewed By Me (FLUID CONGESTION, WORSE COMPARED TO 07/02/18) Progress - Re-Evaluation Re-evaluation Note: 07/15/18 11:31 D/W DR BELL WILL ADMIT D/W DR AUSTIN WILL CONSULT FOR HD - Data Reviewed Data Reviewed: Lab, Diagnostic imaging, EKG, Old records Disposition Counseled Patient/Family Regarding: Studies Performed, Diagnosis - Disposition Disposition: HOSPITALIZED Disposition Time: 11:31 Condition: SERIOUS - POA Present On Arrival: None - Clinical Impression Clinical Impression: CHF exacerbation, ESRD on hemodialysis, Hypoxia - Scribe Statement The provider has reviewed the documentation as recorded by the Scribe (Tiffani Medina) Provider Attestation: All medical record entries made by the Scribe were at my direction and personally dictated by me. I have reviewed the chart and agree that the record accurately reflects my personal performance of the history, physical exam, medical decision making, and the department course for this patient. I have also personally directed, reviewed, and agree with the discharge instructions and disposition.
[2018-07-15 10:56] LABS: BASO # 0.1 K/uL (0.0-0.2); BASO % 0.6 % (0.0-2.0); EOS # 0.3 K/uL (0.0-0.7); EOS % 2.6 % (0.0-4.0); HEMOGLOBIN 10.5 g/dL (12.0-18.0); LYMPH # 1.6 K/uL (1.0-4.3); LYMPH % 14.1 % (20.0-40.0); MEAN CELL VOLUME 92.3 fL (80.0-94.0); MEAN CORPUSCULAR HGB CONC 32.5 g/dL (33.0-37.0); MEAN PLATELET VOLUME 10.6 fL (7.2-11.7); MONO # 0.4 K/uL (0.0-0.8); MONO % 3.7 % (0.0-10.0); RBC 3.51 Mil/uL (4.40-5.90); RED CELL DISTRIBUTION WIDTH 17.4 % (11.5-14.5); WHITE BLOOD COUNT 11.3 K/uL (4.8-10.8)
[2018-07-15 11:43] LABS: ALB/GLOB RATIO 1.2 (1.0-2.1); ALBUMIN 3.7 g/dL (3.5-5.0); CALCIUM 8.6 mg/dl (8.6-10.4)
[2018-07-15 12:03] LABS: TROPONIN I 0.373 ng/mL (0.00-0.120)
--- NOTE | 2018-07-15 12:50 | CP.PCM.HP ---
History of Present Illness - History of Present Illness History of Present Illness: pt has sob chf came in toed will admitt Present on Admission - Present on Admission Any Indicators Present on Admission: Yes Review of Systems - Review of Systems Systems not reviewed;Unavailable: Acuity of Condition - Constitutional Constitutional: As Per HPI, Fatigue, Malaise - EENT Eyes: Blind Spots Nose/Mouth/Throat: Nasal Congestion - Cardiovascular Cardiovascular: Dyspnea, Orthopnea - Respiratory Respiratory: Cough, Dyspnea, Dyspnea on Exertion, Wheezing - Gastrointestinal Gastrointestinal: As Per HPI - Genitourinary Genitourinary: As Per HPI - Reproductive: Male Additional comments: klinfilter - Musculoskeletal Additional comments: lateral amputation - Integumentary Integumentary: As Per HPI - Neurological Neurological: Numbness - Psychiatric Psychiatric: Depression - Endocrine Endocrine: Polyphagia, Polyuria, Other (dm ) Additional Comments: dm - Hematologic/Lymphatic Hematologic: As Per HPI Past Patient History - Infectious Disease Hx of Infectious Diseases: None - Tetanus Immunizations Tetanus Immunization: >10 years Ago - Past Medical History & Family History Past Medical History?: Yes - Past Social History Smoking Status: Never Smoked - CARDIAC Hx Atrial Fibrillation: Yes Hx Cardia Arrhythmia: Yes Hx Congestive Heart Failure: Yes Hx Hypercholesterolemia: Yes Hx Hypertension: Yes - PULMONARY Hx Asthma: Yes Hx Bronchitis: Yes Hx Chronic Obstructive Pulmonary Disease (COPD): Yes Hx Pneumonia: Yes - NEUROLOGICAL Hx Alzheimer's Disease: Yes Hx Seizures: Yes - HEENT Hx HEENT Problems: Yes Hx Blind: Yes Hx Cataracts: Yes - RENAL Hx Chronic Kidney Disease: Yes - ENDOCRINE/METABOLIC Hx Hypothyroidism: Yes - HEMATOLOGICAL/ONCOLOGICAL Hx Anemia: Yes - INTEGUMENTARY Hx Dermatological Problems: No - MUSCULOSKELETAL/RHEUMATOLOGICAL Hx Arthritis: Yes - GASTROINTESTINAL Hx Gall Bladder Disease: Yes Hx Gastritis: Yes - GENITOURINARY/GYNECOLOGICAL Hx Sexually Transmitted Disorders: No - PSYCHIATRIC Hx Anxiety: Yes Hx Depression: Yes Hx Substance Use: No - SURGICAL HISTORY Hx Cholecystectomy: Yes (2011) 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/2009) Hx Coronary Stent: Yes - ANESTHESIA Hx Anesthesia: Yes Hx Anesthesia Reactions: No Hx Malignant Hyperthermia: No Meds Allergies/Adverse Reactions: Allergies Allergy/AdvReac Type Severity Reaction Status Date / Time acetaminophen [From Percocet] Allergy RASH Verified 07/15/18 09:46 atenolol Allergy RASH Verified 07/15/18 09:46 digoxin Allergy RASH Verified 07/15/18 09:46 milk Allergy ITCHING Verified 07/15/18 09:46 morphine Allergy RASH Verified 07/15/18 09:46 oxycodone HCl [From Percocet] Allergy RASH Verified 07/15/18 09:46 Physical Exam - Constitutional Appears: Non-toxic, In Acute Distress - Head Exam Head Exam: ATRAUMATIC - Eye Exam Eye Exam: Conjunctival injection - ENT Exam ENT Exam: Mucous Membranes Dry - Neck Exam Neck exam: Positive for: Full Rom - Respiratory Exam Respiratory Exam: Decreased Breath Sounds, Rales, Rhonchi - Cardiovascular Exam Cardiovascular Exam: +S4 - GI/Abdominal Exam GI & Abdominal Exam: Normal Bowel Sounds - Extremities Exam Additional comments: bilateral amputation Results - Vital Signs Recent Vital Signs: Last Vital Signs Temp 95.3 F L 07/15/18 09:38 Pulse 68 07/15/18 11:23 Resp 22 07/15/18 11:23 BP 222/47 H 07/15/18 11:23 Pulse Ox 91 L 07/15/18 12:14 - Labs Result Diagrams: 07/15/18 10:50 07/15/18 11:21 Labs: Laboratory Results - last 24 hr 07/15/18 07/15/18 10:50 11:21 WBC 11.3 H RBC 3.51 L Hgb 10.5 L Hct 32.4 L MCV 92.3 D MCH 30.0 MCHC 32.5 L RDW 17.4 H Plt Count 179 MPV 10.6 Neut % (Auto) 79.0 H Lymph % (Auto) 14.1 L Cooke % (Auto) 3.7 Eos % (Auto) 2.6 Baso % (Auto) 0.6 Neut # (Auto) 9.0 H Lymph # (Auto) 1.6 Cooke # (Auto) 0.4 Eos # (Auto) 0.3 Baso # (Auto) 0.1 Sodium 132 Potassium 4.6 Chloride 95 L Carbon Dioxide 20 L Anion Gap 22 H BUN 70 H Creatinine 6.2 H Est GFR ( Amer) 12 Est GFR (Non-Af Amer) 10 Random Glucose 336 H Calcium 8.6 Total Bilirubin 0.7 AST 29 ALT 12 L Alkaline Phosphatase 200 H D Troponin I 0.3730 H* NT-Pro-B Natriuret Pep 14268 H Total Protein 6.8 Albumin 3.7 Globulin 3.1 Albumin/Globulin Ratio 1.2 Assessment & Plan - Assessment and Plan (Free Text) Assessment: ac recurent chf asthma dmid esrf pvd cad Plan: as per orders - Date & Time Date: 07/15/18 Time: 12:53
[2018-07-15] MEDS: HYDROmorphone 1 mg/ml ISec IVP PRN ×2 (13:24→21:02)
--- NOTE | 2018-07-15 14:41 | RAD ---
Date of service: 07/15/2018 PROCEDURE: CHEST RADIOGRAPH, 1 VIEW HISTORY: SOB COMPARISON: 07/02/2018 FINDINGS: LUNGS: The prior patchy coalescent bilateral airspace opacities have further progressed bilaterally PLEURA: No pneumothorax. Bilateral inferolateral pleural effusions and/or blending inferolateral pleural thickening are present. The right pleural effusion appears increased since prior exam. CARDIOVASCULAR: There is presence of aortic atherosclerotic calcification on x-ray. Cardiomegaly. Midline sternotomy. Dialysis catheter in place as before OSSEOUS STRUCTURES: Bilateral shoulder arthrosis. Generalized osteopenia. Midline sternotomy VISUALIZED UPPER ABDOMEN: Normal. OTHER FINDINGS: None. IMPRESSION: Bilateral patchy coalescent airspace opacities with bilateral inferolateral pleural effusions and pleural thickening. Findings have progressed. Cardiomegaly. Volume overload/pulmonary edema with or without congestive heart failure inferred.
[2018-07-15] MEDS ORDERED: Ergocalciferol 50,000 Intl Units Cap PO SCH (22:15)
[2018-07-16] MEDS: HYDROmorphone 1 mg/ml ISec IVP PRN ×3 (03:41→18:30)
[2018-07-16] MEDS: (Novolin R) Insulin Human Regular 100 units/ml vial SC SCH ×4 (08:30→21:37)
[2018-07-16] MEDS: Multivitamin Vitamin B Complex (Nephro-Vite) Tab PO SCH (08:56)
[2018-07-16] MEDS: Ranolazine 500 mg Extended Release Tablets PO SCH ×2 (09:54→18:29)
--- NOTE | 2018-07-16 12:17 | CARD ---
APPROVED REPORT Date of service: 07/15/2018 EKG Measurement Heart [id number] <Conclusion> Normal sinus rhythm Possible Inferior infarct, age undetermined Marked ST abnormality, possible lateral subendocardial injury Abnormal ECG
--- NOTE | 2018-07-16 16:11 | CP.PCM.CON ---
History of Present Illness - History of Present Illness History of Present Illness: Nephrology Consultation Note: Assessment:Stable Pulmonary congestion , fluid overload, pleural effusion, HTN emergency chronic chest pain, A flutter Diabetic chronic Kidney Disease (E11.22) Hypertensive Chronic Kidney Disease (I12.0) End stage renal disease (N18.6) dependence on hemodialysis (Z99.2) (TTS) via AVF Anemia (D64.9), Hyperphosphatemia (E83.39), Secondary Hyperparathyroidism (E21.1), HTN (I12.0) CAD s/p CABG, diastolic CHF, parox A flutter/fib, intra-cardiac thrombus, hx of Heparin induced thrombocytopenia, hx of seizure, blindness Plan: plan for dialysis tomorrow as per TTS schedule Continue with Nephrovite 1 tab/day. extra session as isolated UF today. had HD yesterday yesterday no HANNAH with HD . PRBC As needed for anemia, last Hb 10.5 Continue with phos binders home dose BP control with meds as ordered. on ARB as losartan Glycemic control, Dialysis consistent diet Further work up/management as per primary team Dose meds/antibiotics for ESRD status. Avoid fleets enema/magnesium based laxatives. cardiology following Thanks for allowing me to participate in care of your patient. Will follow patient with you. Please call if any Qs. had d/w team Dr Eric Temple Office: [phone] CC: SOB reason for consult: ESRD HPI: Pt is a 38 y/o transgender with hx of ESRD on hemodialysis (TTS) via permacath, chronic anemia, hyperphosphatemia, secondary hyperparathyroidism, Diabetes Mellitus, hypertension, CAD s/p CABG, diastolic CHF, pA flutter/fib, intra-cardiac thrombus, Heparin induced thrombocytopenia in past presented with complaints of SOB and chronic chest pain x 1 day. pt with recurrent and frequent hospitalizations for same complaints. ROS: All other negative except as in HPI. has chronic chest pain, c/o loose stool now better. improved SOB Physical Examination: General Appearance: in no acute respiratory distress, co-operative Vitals reviewed and noted as below Head; Atraumatic, normocephalic ENT: no ulcers no thrush. Tongue is midline. Oropharynx: no rash or ulcers. EYES: Pt is blind both eyes Neck; supple no lymphadenopathy, no thyromegaly or bruit Lungs: normal respiratory rate/effort. Breath sounds bilateral b/l decreased at bases with crackles Heart: Normal rate. s1s2 normal. No rub or gallop. Extremities: no edema. No varicose veins. has b/l BKA. Neurological: Patient is awake follow commands no focal deficit Skin: Warm and dry. Normal turgor. No rash. Palpitation: Normal elasticity for age Abdomen: Abdomen is soft. Bowel sounds +. There is no abdominal tenderness, no guarding/rigidity or organomegaly Psych: limited insight and has normal affect/mood MSK: no joint tenderness or swelling. Digits and nails normal, no deformity : kidney or bladder not palpable Access: permacath Labs/imaging reviewed. Past medical history, past surgical history, family history, social history, allergy reviewed and noted as below Family Hx: no hx of CKD. Non contributory Past Patient History - Infectious Disease Hx of Infectious Diseases: None - Tetanus Immunizations Tetanus Immunization: >10 years Ago - Past Medical History & Family History Past Medical History?: Yes - Past Social History Smoking Status: Unknown If Ever Smoked - CARDIAC Hx Atrial Fibrillation: Yes Hx Cardia Arrhythmia: Yes Hx Congestive Heart Failure: Yes Hx Hypercholesterolemia: Yes Hx Hypertension: Yes - PULMONARY Hx Asthma: Yes Hx Bronchitis: Yes Hx Chronic Obstructive Pulmonary Disease (COPD): Yes Hx Pneumonia: Yes - NEUROLOGICAL Hx Alzheimer's Disease: Yes Hx Seizures: Yes - HEENT Hx HEENT Problems: Yes Hx Blind: Yes Hx Cataracts: Yes - RENAL Hx Chronic Kidney Disease: Yes Date of Last Dialysis Treatment: 07/15/18 - ENDOCRINE/METABOLIC Hx Hypothyroidism: Yes - HEMATOLOGICAL/ONCOLOGICAL Hx Anemia: Yes - INTEGUMENTARY Hx Dermatological Problems: No - MUSCULOSKELETAL/RHEUMATOLOGICAL Hx Arthritis: Yes Hx Falls: No - GASTROINTESTINAL Hx Gall Bladder Disease: Yes Hx Gastritis: Yes - GENITOURINARY/GYNECOLOGICAL Hx Sexually Transmitted Disorders: No - PSYCHIATRIC Hx Anxiety: Yes Hx Depression: Yes Hx Substance Use: No - SURGICAL HISTORY Hx Cholecystectomy: Yes (2011) 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/2009) Hx Coronary Stent: Yes - ANESTHESIA Hx Anesthesia: Yes Hx Anesthesia Reactions: No Hx Malignant Hyperthermia: No Has any member of the family had a problem w/ anesthesia?: No Meds Allergies/Adverse Reactions: Allergies Allergy/AdvReac Type Severity Reaction Status Date / Time acetaminophen [From Percocet] Allergy RASH Verified 07/15/18 09:46 atenolol Allergy RASH Verified 07/15/18 09:46 digoxin Allergy RASH Verified 07/15/18 09:46 milk Allergy ITCHING Verified 07/15/18 09:46 morphine Allergy RASH Verified 07/15/18 09:46 oxycodone HCl [From Percocet] Allergy RASH Verified 07/15/18 09:46 - Medications Medications: Current Medications Albuterol/Ipratropium (Duoneb 3 Mg/0.5 Mg (3 Ml) Ud) 3 ml INH Q4 [facility] Amiodarone HCl (Cordarone) 200 mg PO DAILY [facility] Last Admin: 07/16/18 09:54 Dose: 200 mg Amlodipine Besylate (Norvasc) 10 mg PO DAILY [facility] Last Admin: 07/16/18 09:54 Dose: 10 mg Aspirin (Aspirin Chewable) 81 mg PO DAILY [facility] Last Admin: 07/16/18 09:54 Dose: 81 mg Calcitriol (Rocaltrol) 0.25 mcg PO TTS [facility] Calcium Carbonate (Oscal) 500 mg PO BID [facility] Last Admin: 07/16/18 09:54 Dose: 500 mg Carvedilol (Coreg) 12.5 mg PO BID [facility] Last Admin: 07/16/18 09:55 Dose: 12.5 mg Clopidogrel Bisulfate (Plavix) 75 mg PO DAILY [facility] Last Admin: 07/16/18 09:54 Dose: 75 mg Diltiazem HCl (Cardizem) 30 mg PO QID [facility] Last Admin: 07/16/18 09:55 Dose: 30 mg Docusate Sodium (Colace) 100 mg PO BID PRN PRN Reason: Constipation Epoetin Tom (Procrit) 4,000 unit IV TTS [facility] Ergocalciferol (Drisdol 50,000 Intl Units Cap) 1 cap PO Q7D [facility] Last Admin: 07/15/18 22:51 Dose: Not Given Famotidine (Pepcid) 20 mg PO DAILY [facility] Last Admin: 07/16/18 09:54 Dose: 20 mg Heparin Sodium (Porcine) (Heparin) 3,700 units IVP TTS [facility] Last Admin: 07/15/18 17:49 Dose: 3,700 units Hydromorphone HCl (Dilaudid) 1 mg IVP Q6 PRN PRN Reason: Pain, moderate (4-7) Last Admin: 07/16/18 09:55 Dose: 1 mg Insulin Human Regular (Novolin R) 0 unit SC [facility]; Protocol Last Admin: 07/16/18 12:25 Dose: 4 units Isosorbide Mononitrate (Imdur) 60 mg PO DAILY [facility] Last Admin: 07/16/18 09:54 Dose: 60 mg Levetiracetam (Keppra) 500 mg PO BID [facility] Last Admin: 07/16/18 09:54 Dose: 500 mg Losartan Potassium (Cozaar) 100 mg PO DAILY [facility] Last Admin: 07/16/18 10:35 Dose: 100 mg Montelukast Sodium (Singulair) 10 mg PO DAILY [facility] Last Admin: 07/16/18 09:54 Dose: 10 mg Ranolazine (Ranexa) 500 mg PO BID [facility] Last Admin: 07/16/18 09:54 Dose: 500 mg Rosuvastatin Calcium (Crestor) 10 mg PO [facility] Sertraline HCl (Zoloft) 50 mg PO DAILY [facility] Last Admin: 07/16/18 09:54 Dose: 50 mg Valproate Sodium (Depakene Cap) 250 mg PO QID [facility] Last Admin: 07/16/18 09:54 Dose: 250 mg Vitamin B Complex/Vit C/Folic Acid (Nephro-Courtney) 1 tab PO 0800 [facility] Last Admin: 07/16/18 08:56 Dose: 1 tab Results - Vital Signs Recent Vital Signs: Last Vital Signs Temp 97.7 F 07/16/18 07:45 Pulse 62 07/16/18 08:28 Resp 20 07/16/18 07:45 BP 160/81 H 07/16/18 09:55 Pulse Ox 100 07/16/18 07:45 - Labs Result Diagrams: 07/15/18 10:50 07/15/18 11:21 Labs: Laboratory Results - last 24 hr 07/15/18 07/16/18 07/16/18 21:34 06:10 10:55 POC Glucose (mg/dL) 278 H 340 H 301 H
--- NOTE | 2018-07-16 17:40 | CP.PCM.PN ---
Subjective - Date & Time of Evaluation Date of Evaluation: 07/16/18 Time of Evaluation: 17:38 - Subjective Subjective: pt is having dialysis still has sob Objective - Vital Signs/Intake and Output Vital Signs (last 24 hours): Temp Pulse Resp BP Pulse Ox 97.4 F L 54 L 16 87/48 L 100 07/16/18 15:00 07/16/18 15:00 07/16/18 15:30 07/16/18 15:30 07/16/18 15:30 Intake and Output: 07/16/18 07/16/18 06:59 18:59 Intake Total 500 Balance 500 - Medications Medications: Current Medications Albuterol/Ipratropium (Duoneb 3 Mg/0.5 Mg (3 Ml) Ud) 3 ml INH Q4 [facility] Amiodarone HCl (Cordarone) 200 mg PO DAILY [facility] Last Admin: 07/16/18 09:54 Dose: 200 mg Amlodipine Besylate (Norvasc) 10 mg PO DAILY [facility] Last Admin: 07/16/18 09:54 Dose: 10 mg Aspirin (Aspirin Chewable) 81 mg PO DAILY [facility] Last Admin: 07/16/18 09:54 Dose: 81 mg Calcitriol (Rocaltrol) 0.25 mcg PO TTS [facility] Calcium Carbonate (Oscal) 500 mg PO BID [facility] Last Admin: 07/16/18 09:54 Dose: 500 mg Carvedilol (Coreg) 12.5 mg PO BID [facility] Last Admin: 07/16/18 09:55 Dose: 12.5 mg Clopidogrel Bisulfate (Plavix) 75 mg PO DAILY [facility] Last Admin: 07/16/18 09:54 Dose: 75 mg Diltiazem HCl (Cardizem) 30 mg PO QID [facility] Last Admin: 07/16/18 09:55 Dose: 30 mg Docusate Sodium (Colace) 100 mg PO BID PRN PRN Reason: Constipation Epoetin Tom (Procrit) 4,000 unit IV TTS [facility] Ergocalciferol (Drisdol 50,000 Intl Units Cap) 1 cap PO Q7D [facility] Last Admin: 07/15/18 22:51 Dose: Not Given Famotidine (Pepcid) 20 mg PO DAILY [facility] Last Admin: 07/16/18 09:54 Dose: 20 mg Heparin Sodium (Porcine) (Heparin) 3,700 units IVP TTS [facility] Last Admin: 07/15/18 17:49 Dose: 3,700 units Hydromorphone HCl (Dilaudid) 1 mg IVP Q6 PRN PRN Reason: Pain, moderate (4-7) Last Admin: 07/16/18 09:55 Dose: 1 mg Insulin Human Regular (Novolin R) 0 unit SC ACHS [facility]; Protocol Last Admin: 07/16/18 12:25 Dose: 4 units Isosorbide Mononitrate (Imdur) 60 mg PO DAILY [facility] Last Admin: 07/16/18 09:54 Dose: 60 mg Levetiracetam (Keppra) 500 mg PO BID [facility] Last Admin: 07/16/18 09:54 Dose: 500 mg Losartan Potassium (Cozaar) 100 mg PO DAILY [facility] Last Admin: 07/16/18 10:35 Dose: 100 mg Montelukast Sodium (Singulair) 10 mg PO DAILY [facility] Last Admin: 07/16/18 09:54 Dose: 10 mg Ranolazine (Ranexa) 500 mg PO BID [facility] Last Admin: 07/16/18 09:54 Dose: 500 mg Rosuvastatin Calcium (Crestor) 10 mg PO HS [facility] Sertraline HCl (Zoloft) 50 mg PO DAILY [facility] Last Admin: 07/16/18 09:54 Dose: 50 mg Valproate Sodium (Depakene Cap) 250 mg PO QID [facility] Last Admin: 07/16/18 09:54 Dose: 250 mg Vitamin B Complex/Vit C/Folic Acid (Nephro-Courtney) 1 tab PO 0800 [facility] Last Admin: 07/16/18 08:56 Dose: 1 tab - Labs Labs: 07/15/18 10:50 07/15/18 11:21 - Constitutional Appears: Non-toxic - Head Exam Head Exam: NORMAL INSPECTION - Eye Exam Eye Exam: Conjunctival injection Pupil Exam: NORMAL ACCOMODATION Additional comments: legaly blind - ENT Exam ENT Exam: Mucous Membranes Dry - Respiratory Exam Respiratory Exam: Decreased Breath Sounds - Cardiovascular Exam Cardiovascular Exam: REGULAR RHYTHM - GI/Abdominal Exam GI & Abdominal Exam: Normal Bowel Sounds - Skin Skin Exam: Normal Color, Pallor Assessment and Plan - Assessment and Plan (Free Text) Assessment: chf dmid esrf seizers arythmia cad Plan: cont as per orders
[2018-07-17] MEDS: HYDROmorphone 1 mg/ml ISec IVP PRN ×2 (00:31→06:56)
[2018-07-17] MEDS: Albuterol-Ipratrop 3 mg / 0.5 (3 ml) UD INH SCH ×4 (07:22→19:08)
[2018-07-17] MEDS: (Novolin R) Insulin Human Regular 100 units/ml vial SC SCH ×4 (08:30→21:44)
[2018-07-17] MEDS: Multivitamin Vitamin B Complex (Nephro-Vite) Tab PO SCH (09:00)
[2018-07-17] MEDS ORDERED: EPOETIN ALFA 4,000 UNIT/ML ML Dialysis IV SCH ×2 (10:00→10:15)
[2018-07-17 10:05] LABS: BASO # 0.1 K/uL (0.0-0.2); BASO % 0.6 % (0.0-2.0); EOS # 0.3 K/uL (0.0-0.7); EOS % 3.3 % (0.0-4.0); HEMOGLOBIN 9.4 g/dL (12.0-18.0); LYMPH # 1.3 K/uL (1.0-4.3); LYMPH % 13.4 % (20.0-40.0); MEAN CELL VOLUME 93.7 fL (80.0-94.0); MEAN PLATELET VOLUME 11.2 fL (7.2-11.7); MONO # 0.5 K/uL (0.0-0.8); MONO % 5.1 % (0.0-10.0); NEUT # 7.7 K/uL (1.8-7.0); NEUT % 77.6 % (50.0-75.0); RBC 3.12 Mil/uL (4.40-5.90); RED CELL DISTRIBUTION WIDTH 17.9 % (11.5-14.5); WHITE BLOOD COUNT 9.9 K/uL (4.8-10.8)
--- NOTE | 2018-07-17 10:38 | CP.PCM.PN ---
Subjective - Date & Time of Evaluation Date of Evaluation: 07/17/18 Time of Evaluation: 10:36 - Subjective Subjective: Events reviewed. Improved breathing Objective - Vital Signs/Intake and Output Vital Signs (last 24 hours): Temp Pulse Resp BP Pulse Ox 97.7 F 64 16 111/62 99 07/17/18 09:50 07/17/18 10:10 07/17/18 09:50 07/17/18 10:10 07/17/18 09:50 - Medications Medications: Current Medications Albuterol/Ipratropium (Duoneb 3 Mg/0.5 Mg (3 Ml) Ud) 3 ml INH Q4 [facility] Last Admin: 07/17/18 07:22 Dose: Not Given Amiodarone HCl (Cordarone) 200 mg PO DAILY [facility] Last Admin: 07/16/18 09:54 Dose: 200 mg Amlodipine Besylate (Norvasc) 10 mg PO DAILY [facility] Last Admin: 07/16/18 09:54 Dose: 10 mg Aspirin (Aspirin Chewable) 81 mg PO DAILY [facility] Last Admin: 07/16/18 09:54 Dose: 81 mg Calcitriol (Rocaltrol) 0.25 mcg PO TTS [facility] Calcium Carbonate (Oscal) 500 mg PO BID [facility] Last Admin: 07/16/18 18:29 Dose: 500 mg Carvedilol (Coreg) 12.5 mg PO BID [facility] Last Admin: 07/16/18 18:43 Dose: 12.5 mg Clopidogrel Bisulfate (Plavix) 75 mg PO DAILY [facility] Last Admin: 07/16/18 09:54 Dose: 75 mg Diltiazem HCl (Cardizem) 30 mg PO QID [facility] Last Admin: 07/16/18 21:37 Dose: Not Given Docusate Sodium (Colace) 100 mg PO BID PRN PRN Reason: Constipation Epoetin Tom (Procrit) 4,000 unit IV TTS [facility] Ergocalciferol (Drisdol 50,000 Intl Units Cap) 1 cap PO Q7D [facility] Last Admin: 07/15/18 22:51 Dose: Not Given Famotidine (Pepcid) 20 mg PO DAILY [facility] Last Admin: 07/16/18 09:54 Dose: 20 mg Heparin Sodium (Porcine) (Heparin) 3,700 units IVP TTS [facility] Last Admin: 07/15/18 17:49 Dose: 3,700 units Hydromorphone HCl (Dilaudid) 1 mg IVP Q6 PRN PRN Reason: Pain, moderate (4-7) Last Admin: 07/17/18 06:56 Dose: 1 mg Insulin Human Regular (Novolin R) 0 unit SC ACHS [facility]; Protocol Last Admin: 07/17/18 08:30 Dose: 2 units Isosorbide Mononitrate (Imdur) 60 mg PO DAILY [facility] Last Admin: 07/16/18 09:54 Dose: 60 mg Levetiracetam (Keppra) 500 mg PO BID [facility] Last Admin: 07/16/18 18:29 Dose: 500 mg Losartan Potassium (Cozaar) 100 mg PO DAILY [facility] Last Admin: 07/16/18 10:35 Dose: 100 mg Montelukast Sodium (Singulair) 10 mg PO DAILY [facility] Last Admin: 07/16/18 09:54 Dose: 10 mg Ranolazine (Ranexa) 500 mg PO BID [facility] Last Admin: 07/16/18 18:29 Dose: 500 mg Rosuvastatin Calcium (Crestor) 10 mg PO HS [facility] Last Admin: 07/16/18 21:36 Dose: 10 mg Sertraline HCl (Zoloft) 50 mg PO DAILY [facility] Last Admin: 07/16/18 09:54 Dose: 50 mg Valproate Sodium (Depakene Cap) 250 mg PO QID [facility] Last Admin: 07/16/18 21:36 Dose: 250 mg Vitamin B Complex/Vit C/Folic Acid (Nephro-Courtney) 1 tab PO 0800 [facility] Last Admin: 07/17/18 09:00 Dose: 1 tab - Labs Labs: 07/17/18 09:58 07/15/18 11:21 Assessment and Plan - Assessment and Plan (Free Text) Assessment: 38 year old man transgender woman CHF exacerbation now improved with increased HD in the hospital. HTN is chornic and stable on current meds coreg, cardizem Atrial flutter complicated with RA thrombus and pulmonary embolism, increase eliquis 5mg po BID; amidoarone for rhythm control Chronic systolic CHF coreg Diabetes brittle and lable sugars
[2018-07-17] MEDS: Ranolazine 500 mg Extended Release Tablets PO SCH ×2 (10:46→17:41)
[2018-07-17 10:47] LABS: ALB/GLOB RATIO 1.1 (1.0-2.1); ALBUMIN 3.7 g/dL (3.5-5.0); CALCIUM 8.5 mg/dl (8.6-10.4)
--- NOTE | 2018-07-17 11:14 | CP.PCM.PN ---
Subjective - Date & Time of Evaluation Date of Evaluation: 07/17/18 Time of Evaluation: 11:14 - Subjective Subjective: Nephrology Consultation Note: Assessment:Stable Pulmonary congestion , fluid overload, pleural effusion, HTN emergency chronic chest pain, A flutter Diabetic chronic Kidney Disease (E11.22) Hypertensive Chronic Kidney Disease (I12.0) End stage renal disease (N18.6) dependence on hemodialysis (Z99.2) (TTS) via AVF Anemia (D64.9), Hyperphosphatemia (E83.39), Secondary Hyperparathyroidism (E21.1), HTN (I12.0) CAD s/p CABG, diastolic CHF, parox A flutter/fib, intra-cardiac thrombus, hx of Heparin induced thrombocytopenia, hx of seizure, blindness Plan: plan for dialysis as per TTS schedule Continue with Nephrovite 1 tab/day. on HANNAH with HD . PRBC As needed for anemia, last Hb 10.5 Continue with phos binders home dose BP control with meds as ordered. on ARB as losartan Glycemic control, Dialysis consistent diet Further work up/management as per primary team Dose meds/antibiotics for ESRD status. Avoid fleets enema/magnesium based laxatives. cardiology following Thanks for allowing me to participate in care of your patient. Will follow patient with you. Please call if any Qs. had d/w team Dr Erci Temple Office: [phone] CC: SOB reason for consult: ESRD HPI: Pt is a 38 y/o transgender with hx of ESRD on hemodialysis (TTS) via permacath, chronic anemia, hyperphosphatemia, secondary hyperparathyroidism, Diabetes Mellitus, hypertension, CAD s/p CABG, diastolic CHF, pA flutter/fib, intra-cardiac thrombus, Heparin induced thrombocytopenia in past presented with complaints of SOB and chronic chest pain x 1 day. pt with recurrent and frequent hospitalizations for same complaints. ROS: All other negative except as in HPI. has chronic chest pain, c/o loose stool now better. improved SOB Physical Examination: seen during HD General Appearance: in no acute respiratory distress, co-operative Vitals reviewed and noted as below Head; Atraumatic, normocephalic ENT: no ulcers no thrush. Tongue is midline. Oropharynx: no rash or ulcers. EYES: Pt is blind both eyes Neck; supple no lymphadenopathy, no thyromegaly or bruit Lungs: normal respiratory rate/effort. Breath sounds bilateral clear Heart: Normal rate. s1s2 normal. No rub or gallop. Extremities: no edema. No varicose veins. has b/l BKA. Neurological: Patient is awake follow commands no focal deficit Skin: Warm and dry. Normal turgor. No rash. Palpitation: Normal elasticity for age Abdomen: Abdomen is soft. Bowel sounds +. There is no abdominal tenderness, no guarding/rigidity or organomegaly Psych: limited insight and has normal affect/mood MSK: no joint tenderness or swelling. Digits and nails normal, no deformity : kidney or bladder not palpable Access: permacath Labs/imaging reviewed. Past medical history, past surgical history, family history, social history, allergy reviewed and noted as below Family Hx: no hx of CKD. Non contributory Objective - Vital Signs/Intake and Output Vital Signs (last 24 hours): Temp Pulse Resp BP Pulse Ox 97.7 F 63 12 109/62 99 07/17/18 09:50 07/17/18 11:00 07/17/18 11:00 07/17/18 11:00 07/17/18 09:50 - Medications Medications: Current Medications Albuterol/Ipratropium (Duoneb 3 Mg/0.5 Mg (3 Ml) Ud) 3 ml INH Q4 [facility] Last Admin: 07/17/18 07:22 Dose: Not Given Amiodarone HCl (Cordarone) 200 mg PO DAILY [facility] Last Admin: 07/17/18 10:44 Dose: Not Given Amlodipine Besylate (Norvasc) 10 mg PO DAILY [facility] Last Admin: 07/17/18 10:45 Dose: Not Given Aspirin (Aspirin Chewable) 81 mg PO DAILY [facility] Last Admin: 07/17/18 10:43 Dose: Not Given Calcitriol (Rocaltrol) 0.25 mcg PO TTS [facility] Last Admin: 07/17/18 10:46 Dose: Not Given Calcium Carbonate (Oscal) 500 mg PO BID [facility] Last Admin: 07/17/18 10:46 Dose: Not Given Carvedilol (Coreg) 12.5 mg PO BID [facility] Last Admin: 07/17/18 10:44 Dose: Not Given Clopidogrel Bisulfate (Plavix) 75 mg PO DAILY [facility] Last Admin: 07/17/18 10:46 Dose: Not Given Diltiazem HCl (Cardizem) 30 mg PO QID [facility] Last Admin: 07/17/18 10:44 Dose: Not Given Docusate Sodium (Colace) 100 mg PO BID PRN PRN Reason: Constipation Epoetin Tom (Procrit) 4,000 unit IV TTS [facility] Ergocalciferol (Drisdol 50,000 Intl Units Cap) 1 cap PO Q7D [facility] Last Admin: 07/15/18 22:51 Dose: Not Given Famotidine (Pepcid) 20 mg PO DAILY [facility] Last Admin: 07/17/18 10:46 Dose: Not Given Heparin Sodium (Porcine) (Heparin) 3,700 units IVP TTS [facility] Last Admin: 07/15/18 17:49 Dose: 3,700 units Hydromorphone HCl (Dilaudid) 1 mg IVP Q6 PRN PRN Reason: Pain, moderate (4-7) Last Admin: 07/17/18 06:56 Dose: 1 mg Insulin Human Regular (Novolin R) 0 unit SC [facility]; Protocol Last Admin: 07/17/18 08:30 Dose: 2 units Isosorbide Mononitrate (Imdur) 60 mg PO DAILY [facility] Last Admin: 07/17/18 10:45 Dose: Not Given Levetiracetam (Keppra) 500 mg PO BID [facility] Last Admin: 07/17/18 10:45 Dose: Not Given Losartan Potassium (Cozaar) 100 mg PO DAILY [facility] Last Admin: 07/17/18 10:44 Dose: Not Given Montelukast Sodium (Singulair) 10 mg PO DAILY [facility] Last Admin: 07/17/18 10:46 Dose: Not Given Ranolazine (Ranexa) 500 mg PO BID [facility] Last Admin: 07/17/18 10:46 Dose: Not Given Rosuvastatin Calcium (Crestor) 10 mg PO HS [facility] Last Admin: 07/16/18 21:36 Dose: 10 mg Sertraline HCl (Zoloft) 50 mg PO DAILY [facility] Last Admin: 07/17/18 10:46 Dose: Not Given Valproate Sodium (Depakene Cap) 250 mg PO QID [facility] Last Admin: 07/17/18 10:44 Dose: Not Given Vitamin B Complex/Vit C/Folic Acid (Nephro-Courtney) 1 tab PO 0800 [facility] Last Admin: 07/17/18 09:00 Dose: 1 tab - Labs Labs: 07/17/18 09:58 07/17/18 09:58
[2018-07-18] MEDS: Albuterol-Ipratrop 3 mg / 0.5 (3 ml) UD INH SCH ×6 (00:50→20:05)
[2018-07-18 07:56] VITALS: RESP 18
[2018-07-18] MEDS: (Novolin R) Insulin Human Regular 100 units/ml vial SC SCH ×3 (08:30→17:27)
[2018-07-18] MEDS: Multivitamin Vitamin B Complex (Nephro-Vite) Tab PO SCH (08:56)
--- NOTE | 2018-07-18 09:58 | CP.PCM.PN ---
Subjective - Date & Time of Evaluation Date of Evaluation: 07/18/18 Time of Evaluation: 09:56 - Subjective Subjective: pt less sob has slight discomfort l side neck Objective - Vital Signs/Intake and Output Vital Signs (last 24 hours): Temp Pulse Resp BP Pulse Ox 97.5 F L 68 18 107/62 98 07/18/18 07:00 07/18/18 07:02 07/18/18 07:00 07/18/18 07:00 07/18/18 07:00 Intake and Output: 07/18/18 07/18/18 06:59 18:59 Intake Total 540 Balance 540 - Medications Medications: Current Medications Albuterol/Ipratropium (Duoneb 3 Mg/0.5 Mg (3 Ml) Ud) 3 ml INH Q4 [facility] Last Admin: 07/18/18 03:20 Dose: Not Given Amiodarone HCl (Cordarone) 200 mg PO DAILY [facility] Last Admin: 07/17/18 10:44 Dose: Not Given Amlodipine Besylate (Norvasc) 10 mg PO DAILY [facility] Last Admin: 07/17/18 10:45 Dose: Not Given Aspirin (Aspirin Chewable) 81 mg PO DAILY [facility] Last Admin: 07/17/18 10:43 Dose: Not Given Calcitriol (Rocaltrol) 0.25 mcg PO TTS [facility] Last Admin: 07/17/18 10:46 Dose: Not Given Calcium Carbonate (Oscal) 500 mg PO BID [facility] Last Admin: 07/17/18 17:41 Dose: 500 mg Carvedilol (Coreg) 12.5 mg PO BID [facility] Last Admin: 07/17/18 17:41 Dose: 12.5 mg Clopidogrel Bisulfate (Plavix) 75 mg PO DAILY [facility] Last Admin: 07/17/18 10:46 Dose: Not Given Diltiazem HCl (Cardizem) 30 mg PO QID [facility] Last Admin: 07/17/18 21:29 Dose: 30 mg Docusate Sodium (Colace) 100 mg PO BID PRN PRN Reason: Constipation Epoetin Tom (Procrit) 4,000 unit IV TTS [facility] Last Admin: 07/17/18 11:30 Dose: 4,000 unit Ergocalciferol (Drisdol 50,000 Intl Units Cap) 1 cap PO Q7D [facility] Last Admin: 07/15/18 22:51 Dose: Not Given Famotidine (Pepcid) 20 mg PO DAILY [facility] Last Admin: 07/17/18 10:46 Dose: Not Given Heparin Sodium (Porcine) (Heparin) 3,700 units IVP TTS [facility] Last Admin: 07/17/18 11:32 Dose: 3,700 units Hydromorphone HCl (Dilaudid) 1 mg IVP Q6 PRN PRN Reason: Pain, moderate (4-7) Last Admin: 07/17/18 06:56 Dose: 1 mg Hydromorphone HCl (Dilaudid) 2 mg PO Q6H PRN PRN Reason: Pain, severe (8-10) Last Admin: 07/17/18 20:05 Dose: 2 mg Insulin Human Regular (Novolin R) 0 unit [facility]; Protocol Last Admin: 07/18/18 08:30 Dose: 1 units Isosorbide Mononitrate (Imdur) 60 mg PO DAILY [facility] Last Admin: 07/17/18 10:45 Dose: Not Given Levetiracetam (Keppra) 500 mg PO BID [facility] Last Admin: 07/17/18 17:41 Dose: 500 mg Losartan Potassium (Cozaar) 100 mg PO DAILY [facility] Last Admin: 07/17/18 10:44 Dose: Not Given Montelukast Sodium (Singulair) 10 mg PO DAILY [facility] Last Admin: 07/17/18 10:46 Dose: Not Given Ranolazine (Ranexa) 500 mg PO BID [facility] Last Admin: 07/17/18 17:41 Dose: 500 mg Rosuvastatin Calcium (Crestor) 10 mg PO HS [facility] Last Admin: 07/17/18 21:29 Dose: 10 mg Sertraline HCl (Zoloft) 50 mg PO DAILY [facility] Last Admin: 07/17/18 10:46 Dose: Not Given Valproate Sodium (Depakene Cap) 250 mg PO QID [facility] Last Admin: 07/17/18 21:30 Dose: 250 mg Vitamin B Complex/Vit C/Folic Acid (Nephro-Courtney) 1 tab PO 0800 [facility] Last Admin: 07/18/18 08:56 Dose: 1 tab - Labs Labs: 07/17/18 09:58 07/17/18 09:58 - Constitutional Appears: Non-toxic - Head Exam Head Exam: NORMAL INSPECTION - Eye Exam Eye Exam: Conjunctival injection - ENT Exam ENT Exam: Mucous Membranes Moist - Respiratory Exam Respiratory Exam: Decreased Breath Sounds - Cardiovascular Exam Cardiovascular Exam: REGULAR RHYTHM, +S4 - GI/Abdominal Exam GI & Abdominal Exam: Normal Bowel Sounds - Extremities Exam Additional comments: bilateral amputation - Back Exam Back Exam: NORMAL INSPECTION - Psychiatric Exam Psychiatric exam: Normal Affect - Skin Skin Exam: Pallor Assessment and Plan - Assessment and Plan (Free Text) Assessment: improving dmid esrf on dialysis klinfilter cad Plan: will have dialysis today then go home
[2018-07-18] MEDS: Ranolazine 500 mg Extended Release Tablets PO SCH ×2 (10:07→17:27)
--- NOTE | 2018-07-18 15:15 | CP.PCM.PN ---
Subjective - Date & Time of Evaluation Date of Evaluation: 07/18/18 Time of Evaluation: 15:14 - Subjective Subjective: Nephrology Consultation Note: Assessment:Stable Pulmonary congestion , fluid overload, pleural effusion, HTN emergency chronic chest pain, A flutter Diabetic chronic Kidney Disease (E11.22) Hypertensive Chronic Kidney Disease (I12.0) End stage renal disease (N18.6) dependence on hemodialysis (Z99.2) (TTS) via AVF Anemia (D64.9), Hyperphosphatemia (E83.39), Secondary Hyperparathyroidism (E21.1), HTN (I12.0) CAD s/p CABG, diastolic CHF, parox A flutter/fib, intra-cardiac thrombus, hx of Heparin induced thrombocytopenia, hx of seizure, blindness Plan: no acute need for dialysis today. plan for dialysis as per TTS schedule Continue with Nephrovite 1 tab/day. on HANNAH with HD . PRBC As needed for anemia, last Hb 10.5 Continue with phos binders home dose BP control with meds as ordered. on ARB as losartan Glycemic control, Dialysis consistent diet Further work up/management as per primary team Dose meds/antibiotics for ESRD status. Avoid fleets enema/magnesium based laxat justice. cardiology following pt stable from renal perspective Thanks for allowing me to participate in care of your patient. Will follow patient with you. Please call if any Qs. had d/w team Dr Eric Temple Office: [phone] CC: SOB reason for consult: ESRD HPI: Pt is a 38 y/o transgender with hx of ESRD on hemodialysis (TTS) via permacath, chronic anemia, hyperphosphatemia, secondary hyperparathyroidism, Diabetes Mellitus, hypertension, CAD s/p CABG, diastolic CHF, pA flutter/fib, intra-cardiac thrombus, Heparin induced thrombocytopenia in past presented with complaints of SOB and chronic chest pain x 1 day. pt with recurrent and frequent hospitalizations for same complaints. ROS: All other negative except as in HPI. has chronic chest pain, c/o loose stool now better. improved SOB Physical Examination: General Appearance: in no acute respiratory distress, co-operative Vitals reviewed and noted as below Head; Atraumatic, normocephalic ENT: no ulcers no thrush. Tongue is midline. Oropharynx: no rash or ulcers. EYES: Pt is blind both eyes Neck; supple no lymphadenopathy, no thyromegaly or bruit Lungs: normal respiratory rate/effort. Breath sounds bilateral clear Heart: Normal rate. s1s2 normal. No rub or gallop. Extremities: no edema. No varicose veins. has b/l BKA. Neurological: Patient is awake follow commands no focal deficit Skin: Warm and dry. Normal turgor. No rash. Palpitation: Normal elasticity for age Abdomen: Abdomen is soft. Bowel sounds +. There is no abdominal tenderness, no guarding/rigidity or organomegaly Psych: limited insight and has normal affect/mood MSK: no joint tenderness or swelling. Digits and nails normal, no deformity : kidney or bladder not palpable Access: permacath Labs/imaging reviewed. Past medical history, past surgical history, family history, social history, allergy reviewed and noted as below Family Hx: no hx of CKD. Non contributory Objective - Vital Signs/Intake and Output Vital Signs (last 24 hours): Temp Pulse Resp BP Pulse Ox 97.5 F L 70 18 116/60 98 07/18/18 07:00 07/18/18 13:46 07/18/18 07:00 07/18/18 13:46 07/18/18 07:00 Intake and Output: 07/18/18 07/18/18 06:59 18:59 Intake Total 540 Balance 540 - Medications Medications: Current Medications Albuterol/Ipratropium (Duoneb 3 Mg/0.5 Mg (3 Ml) Ud) 3 ml INH Q4 [facility] Last Admin: 07/18/18 11:43 Dose: Not Given Amiodarone HCl (Cordarone) 200 mg PO DAILY [facility] Last Admin: 07/18/18 10:02 Dose: 200 mg Amlodipine Besylate (Norvasc) 10 mg PO DAILY [facility] Last Admin: 07/18/18 10:01 Dose: 10 mg Aspirin (Aspirin Chewable) 81 mg PO DAILY [facility] Last Admin: 07/18/18 10:01 Dose: 81 mg Calcitriol (Rocaltrol) 0.25 mcg PO TTS [facility] Last Admin: 07/17/18 10:46 Dose: Not Given Calcium Carbonate (Oscal) 500 mg PO BID [facility] Last Admin: 07/18/18 10:03 Dose: 500 mg Carvedilol (Coreg) 12.5 mg PO BID [facility] Last Admin: 07/18/18 10:02 Dose: 12.5 mg Clopidogrel Bisulfate (Plavix) 75 mg PO DAILY [facility] Last Admin: 07/18/18 10:01 Dose: 75 mg Diltiazem HCl (Cardizem) 30 mg PO QID [facility] Last Admin: 07/18/18 13:48 Dose: Not Given Docusate Sodium (Colace) 100 mg PO BID PRN PRN Reason: Constipation Epoetin Tom (Procrit) 4,000 unit IV TTS [facility] Last Admin: 07/17/18 11:30 Dose: 4,000 unit Ergocalciferol (Drisdol 50,000 Intl Units Cap) 1 cap PO Q7D [facility] Last Admin: 07/15/18 22:51 Dose: Not Given Famotidine (Pepcid) 20 mg PO DAILY [facility] Last Admin: 07/18/18 10:03 Dose: 20 mg Hydromorphone HCl (Dilaudid) 1 mg IVP Q6 PRN PRN Reason: Pain, moderate (4-7) Last Admin: 07/17/18 06:56 Dose: 1 mg Hydromorphone HCl (Dilaudid) 2 mg PO Q6H PRN PRN Reason: Pain, severe (8-10) Last Admin: 07/18/18 13:51 Dose: 2 mg Insulin Human Regular (Novolin R) 0 unit SC [facility]; Protocol Last Admin: 07/18/18 13:01 Dose: 6 units Isosorbide Mononitrate (Imdur) 60 mg PO DAILY [facility] Last Admin: 07/18/18 10:02 Dose: 60 mg Levetiracetam (Keppra) 500 mg PO BID [facility] Last Admin: 07/18/18 10:01 Dose: 500 mg Losartan Potassium (Cozaar) 100 mg PO DAILY [facility] Last Admin: 07/18/18 10:02 Dose: 100 mg Montelukast Sodium (Singulair) 10 mg PO DAILY [facility] Last Admin: 07/18/18 10:01 Dose: 10 mg Ranolazine (Ranexa) 500 mg PO BID [facility] Last Admin: 07/18/18 10:07 Dose: 500 mg Rosuvastatin Calcium (Crestor) 10 mg PO HS [facility] Last Admin: 07/17/18 21:29 Dose: 10 mg Sertraline HCl (Zoloft) 50 mg PO DAILY [facility] Last Admin: 07/18/18 10:02 Dose: 50 mg Valproate Sodium (Depakene Cap) 250 mg PO QID [facility] Last Admin: 07/18/18 13:47 Dose: 250 mg Vitamin B Complex/Vit C/Folic Acid (Nephro-Courtney) 1 tab PO 0800 [facility] Last Admin: 07/18/18 08:56 Dose: 1 tab - Labs Labs: 07/17/18 09:58 07/17/18 09:58
[2018-07-18 15:34] VITALS: BP 100/62; TEMP 97.7; O2SAT 100
[2018-07-18 15:40] VITALS: PULSE 77
--- NOTE | 2018-07-21 16:54 | IP.NPCORE ---
Heart Failure Core Measure - Heart Failure Ejection Fraction: Less Than 40 % RAÚL Inhibitor Prescribed: No Contraindication/Reason for not providing: ARB Beta-Andrew Prescribed: Carvedilol Angiotensin II Receptor Andrew Prescribed: Yes AnticoagulationTherapy for Atrial Fibrillation/Atrialflutter: Yes Aldosterone Antagonist Prescribed: No Contraindication/Reason for not providing: NOT INDICATED BY THE INSURANCE PLAN SPECIALIST Hydralazine Nitrate Prescribed: No Contraindication/Reason for not providing: NOT INDICATED BY THE INSURANCE PLAN SPECIALIST Implantable Cardioverter Defibrillator Therapy: No Contraindication/Reason for not providing: NOT INDICATED BY THE INSURANCE PLAN SPECIALIST Cardiac Resynchronization Therapy Prescribed: No Contraindication/Reason for not providing: NOT INDICATED BY THE INSURANCE PLAN SPECIALIST - Follow up Will be discharged to: Home Follow Up Date (must be within 7 days from discharge): 07/21/18 Follow Up Time: 10:00
== END 2018-07-18 20:30 | disposition home or self-care (01) | DRG 194 ==
LOC: C.ER 09:28 → C.9E 11:32 → C.5S 18:36
PROVIDERS: ADMIT Internal Medicine; ATTEND Internal Medicine
PROC: 5A1D70Z Performance of Urinary Filtration, Intermittent, Less than 6 Hours Per Day (ICD-10-PCS; principal; 2018-07-15)
PROC: 5A1D70Z Performance of Urinary Filtration, Intermittent, Less than 6 Hours Per Day (ICD-10-PCS; 2018-07-16)
PROC: 5A1D70Z Performance of Urinary Filtration, Intermittent, Less than 6 Hours Per Day (ICD-10-PCS; 2018-07-17)
DX: I13.2 Hypertensive heart and chronic kidney disease with heart failure and with stage 5 chronic kidney disease, or end stage renal disease (principal); N18.6 End stage renal disease; E11.22 Type 2 diabetes mellitus with diabetic chronic kidney disease; N25.81 Secondary hyperparathyroidism of renal origin; I48.92 Unspecified atrial flutter; G30.9 Alzheimer's disease, unspecified; F02.80 Dementia in other diseases classified elsewhere, unspecified severity, without behavioral disturbance, psychotic disturbance, mood disturbance, and anxiety; I16.1 Hypertensive emergency; I50.42 Chronic combined systolic (congestive) and diastolic (congestive) heart failure; F64.9 Gender identity disorder, unspecified; G89.29 Other chronic pain; H54.7 Unspecified visual loss; I25.10 Atherosclerotic heart disease of native coronary artery without angina pectoris; I48.91 Unspecified atrial fibrillation; J44.9 Chronic obstructive pulmonary disease, unspecified; R09.02 Hypoxemia; Z79.01 Long term (current) use of anticoagulants; Z86.73 Personal history of transient ischemic attack (TIA), and cerebral infarction without residual deficits; Z89.512 Acquired absence of left leg below knee; Z95.1 Presence of aortocoronary bypass graft; Z95.5 Presence of coronary angioplasty implant and graft; Z99.2 Dependence on renal dialysis; D64.9 Anemia, unspecified; E03.9 Hypothyroidism, unspecified

== ENCOUNTER 2018-07-27 12:57 | Observation (INO) | payer OTHER ==
[2018-07-27 12:57] VITALS: PULSE 110; BMI 18.8
--- NOTE | 2018-07-27 14:41 | C.PDOC ---
History Of Present Illness 38 y/o male, with history of renal disease, dialysis, and CHF, presents to ED complaining of chest pain and SOB since last night. Patient denies fever or other complaints. Patient had frequent visits to ER for similar complaint. Last dialysis was yesterday. Time Seen by Provider: 07/27/18 14:16 Chief Complaint (Nursing): Chest Pain History Per: Patient History/Exam Limitations: no limitations Onset/Duration Of Symptoms: Days Current Symptoms Are (Timing): Still Present Past Medical History Reviewed: Historical Data, Nursing Documentation, Vital Signs Vital Signs: Last Vital Signs Temp 98 F 07/27/18 13:00 Pulse 78 07/27/18 13:00 Resp 18 07/27/18 13:00 BP 180/77 H 07/27/18 13:00 Pulse Ox 98 07/27/18 13:00 - Medical History PMH: Alzheimer's Disease, Anemia, Anxiety, Arthritis, Asthma, Atrial Fibrillation, Bronchitis, CAD, Cardia Arrhythmia, CHF, COPD, CVA, Depression, Diabetes, Deep Vein Thrombosis, Gastritis, Gastrointestinal Ulcer, Gall Bladder Disease, HTN, Hypercholesterolemia, Hypothyroidism, Pneumonia, End Stage Renal Disease, Chronic Kidney Disease, Seizures Denies: Hyperthyroidism, Kidney Stones, Sexually Transmitted Disease Surgical History: CABG (12/2009), Cholecystectomy (2011), Coronary Stent - [facility] Procedures (07/15/18) ABDOMINAL WALL SINOGRAM (12/31/13) ASSISTANCE WITH RESPIRATORY VENTILATION, 24-96 HRS, CPAP (05/31/18) C.A.T. SCAN OF ABDOMEN (10/31/13) CENTRAL VENOUS CATHETER PLACEMENT WITH GUIDANCE (02/10/15) CHANGE OTHER DEVICE IN TRUNK SUBCU/FASCIA, CLIENT STRATEGIST APPROACH (06/01/17) DILATE R ANT TIB ART W DRUG-ELUT INTRALUM, PERC (08/12/15) DILATION OF LEFT FEMORAL ARTERY, PERCUTANEOUS APPROACH (07/04/16) DILATION OF RIGHT FEMORAL ARTERY, PERCUTANEOUS APPROACH (08/12/15) DILATION OF RIGHT POPLITEAL ARTERY, PERCUTANEOUS APPROACH (08/12/15) DX ULTRASOUND-HEART (01/05/13) ENTERAL INFUSION OF CONCENTRATED NUT. SUBSTANCES (06/28/13) EXCIS DEBRIDE OF WOUND, INFECT, OR BURN (08/03/14) EXCISION OF STOMACH, ENDO, DIAGN (03/03/17) EXTIRPATION OF MATTER FROM L FEM ART, PERC APPROACH (07/04/16) EXTIRPATION OF MATTER FROM R FEM ART, PERC APPROACH (08/12/15) EXTIRPATION OF MATTER FROM R POPL ART, PERC APPROACH (08/12/15) FLUOROSCOPY OF L LOW EXTREM ART USING L OSM CONTRAST (08/12/15) FLUOROSCOPY OF R LOW EXTREM ART USING L OSM CONTRAST (08/12/15) FLUOROSCOPY OF RIGHT JUGULAR VEINS, GUIDANCE (06/01/17) FREE SKIN GRAFT NEC (08/03/14) HEAD SOFT TISS X-RAY NEC (04/15/13) HEMODIALYSIS (04/28/15) INCIS W REM OF FORIEGN BODY OR DEV FROM SKIN & SUBCUT TISSUE (08/08/13) INSERT INFUSION DEV IN R INT JUGULAR VEIN, PERC (06/01/17) INSERTION OF INFUSION DEV INTO R SUBCLAV VEIN, PERC APPROACH (01/19/16) INSERTION OF INFUSION DEV INTO SUP VENA CAVA, PERC APPROACH (01/07/18) INSPECTION OF UPPER INTESTINAL TRACT, ENDO (03/03/17) INTRODUCE OF OTH THROMBOLYTIC INTO PERIPH ART, PERC APPROACH (08/12/15) LAPAROSCOPIC CHOLECYSTECTOMY (09/21/13) LOC EXC LES METATAR/TAR (06/01/14) PACKED CELL TRANSFUSION (06/01/14) PERCUTAN LIVER ASPIRAT (12/31/13) PERFORMANCE OF URINARY FILTRATION, MULTIPLE (05/17/17) PERFORMANCE OF URINARY FILTRATION, SINGLE (12/18/16) SKIN & SUBQ INCISION NEC (10/24/14) TETANUS TOXOID ADMINIST (06/13/14) TRANSFUSE NONAUT RED BLOOD CELLS IN PERIPH VEIN, PERC (04/09/17) ULTRASONOGRAPHY OF RIGHT AND LEFT HEART (04/09/17) ULTRASONOGRAPHY OF SUPERIOR VENA CAVA, GUIDANCE (01/07/18) VENOUS CATHETERIZATION FOR RENAL DIALYSIS (08/08/13) VENOUS CATHETERIZATION NEC (04/30/13) Family History: States: No Known Family Hx - Social History Hx Tobacco Use: No Hx Alcohol Use: Yes Hx Substance Use: No - Immunization History Hx Tetanus Toxoid Vaccination: Yes Hx Influenza Vaccination: Yes Hx Pneumococcal Vaccination: Yes Review Of Systems Except As Marked, All Systems Reviewed And Found Negative. Constitutional: Negative for: Fever Cardiovascular: Positive for: Chest Pain Respiratory: Positive for: Shortness of Breath. Negative for: Cough Gastrointestinal: Negative for: Nausea, Vomiting, Abdominal Pain, Diarrhea Neurological: Negative for: Weakness, Numbness Physical Exam - Physical Exam Appears: Non-toxic, No Acute Distress Skin: Warm, Dry Head: Atraumatic, Normacephalic Eye(s): bilateral: Normal Inspection Oral Mucosa: Moist Neck: Supple Chest: Symmetrical Cardiovascular: Rhythm Regular, No Murmur Respiratory: No Accessory Muscle Use, Rales (at basis of lungs), No Wheezing Gastrointestinal/Abdominal: Soft, No Tenderness Extremity: Bilateral: Atraumatic, Normal Color And Temperature, Normal ROM Neurological/Psych: Oriented x3, Normal Speech ED Course And Treatment - Laboratory Results Result Diagrams: 07/27/18 14:53 07/27/18 14:53 ECG: Interpreted By Me, Viewed By Me Interpretation Of ECG: Normal sinus rhythm at 69 bpm. LVH with repolarization Rate From EC O2 Sat by Pulse Oximetry: 98 (RA) Pulse Ox Interpretation: Normal - Other Rad Chest X-Ray X-Ray: Read By Radiologist Interpretation: FINDINGS: LUNGS: Marked improvement in the extent of perihilar opacity with residual left perihilar opacity and complete resolution of right perihilar opacity. Linear scar/atelectasis at left base. PLEURA: No pleural effusion or pneumothorax. CARDIOVASCULAR: Normal heart size. Tunneled right central venous dialysis catheter. Sternotomy wires. No congestive change. OSSEOUS STRUCTURES: No significant abnormalities. VISUALIZED UPPER ABDOMEN: Normal. OTHER FINDINGS: None. IMPRESSION: Resolving pulmonary edema with mild residual left perihilar opacity and no pleural effusion. Medical Decision Making Medical Decision Making: ro chf, pna Plan: --EKG --Bloodwork --Chest X-Ray labs neg. cxr improve.d noted blood sugar. bicarb 25. insulin given. case discussed with pmd accepted for obs. Disposition - Disposition Disposition: HOME/ ROUTINE Disposition Time: 15:00 Condition: STABLE - Clinical Impression Clinical Impression: Chest pain, Hyperglycemia - Scribe Statement The provider has reviewed the documentation as recorded by the Fabiola Casiano Provider Attestation: All medical record entries made by the Marlonibrigoberto were at my direction and personally dictated by me. I have reviewed the chart and agree that the record accurately reflects my personal performance of the history, physical exam, medical decision making, and the department course for this patient. I have also personally directed, reviewed, and agree with the discharge instructions and disposition. Decision To Admit - Pt Status Changed To: Hospital Disposition Of: Observation - . Bed Request Type: Telemetry Admitting Physician: Sybil Li Patient Diagnosis: Chest pain, Hyperglycemia
--- NOTE | 2018-07-27 14:58 | RAD ---
Date of service: 07/27/2018 PROCEDURE: CHEST RADIOGRAPH, 1 VIEW HISTORY: chest pain COMPARISON: 07/15/2018 FINDINGS: LUNGS: Marked improvement in the extent of perihilar opacity with residual left perihilar opacity and complete resolution of right perihilar opacity. Linear scar/atelectasis at left base PLEURA: No pleural effusion or pneumothorax. CARDIOVASCULAR: Normal heart size. Tunneled right central venous dialysis catheter. Sternotomy wires. No congestive change. OSSEOUS STRUCTURES: No significant abnormalities. VISUALIZED UPPER ABDOMEN: Normal. OTHER FINDINGS: None. IMPRESSION: Resolving pulmonary edema with mild residual left perihilar opacity and no pleural effusion.
[2018-07-27 15:01] LABS: BASO # 0.1 K/uL (0.0-0.2); BASO % 1.6 % (0.0-2.0); EOS # 0.1 K/uL (0.0-0.7); EOS % 1.9 % (0.0-4.0); HEMOGLOBIN 10.2 g/dL (12.0-18.0); LYMPH # 2.3 K/uL (1.0-4.3); LYMPH % 32.4 % (20.0-40.0); MEAN CELL VOLUME 94.5 fL (80.0-94.0); MEAN CORPUSCULAR HEMOGLOBIN 30.2 pg (27.0-31.0); MEAN CORPUSCULAR HGB CONC 31.9 g/dL (33.0-37.0); MEAN PLATELET VOLUME 10.4 fL (7.2-11.7); MONO # 0.6 K/uL (0.0-0.8); MONO % 8.3 % (0.0-10.0); NEUT % 55.8 % (50.0-75.0); RBC 3.38 Mil/uL (4.40-5.90); RED CELL DISTRIBUTION WIDTH 19.2 % (11.5-14.5); WHITE BLOOD COUNT 7.1 K/uL (4.8-10.8)
[2018-07-27 15:14] LABS: INR 1.2; PROTHROMBIN TIME 12.9 SECONDS (9.7-12.2)
[2018-07-27 15:29] LABS: TROPONIN I 0.031 ng/mL (0.00-0.120)
[2018-07-27 15:31] LABS: ALB/GLOB RATIO 1.2 (1.0-2.1); ALBUMIN 3.7 g/dL (3.5-5.0)
[2018-07-27] MEDS ORDERED: (Novolin R) Insulin Human Regular 100 units/ml vial IVP STA (15:33)
[2018-07-27] MEDS ORDERED: (Novolin R) Insulin Human Regular 100 units/ml vial ONE (16:12)
[2018-07-27] MEDS: HYDROmorphone 1 mg/ml ISec IM PRN (19:59)
[2018-07-27] MEDS ORDERED: (Lantus) Insulin Glargine, Recombinant SC SCH (22:00)
[2018-07-27] MEDS ORDERED: Ergocalciferol 50,000 Intl Units Cap PO SCH (22:00)
[2018-07-27] MEDS: (Novolin R) Insulin Human Regular 100 units/ml vial SC SCH (23:08)
[2018-07-27] MEDS ORDERED: (Lantus) Insulin Glargine, Recombinant SC ONE (23:13)
[2018-07-27] MEDS ORDERED: Albuterol-Ipratrop 3 mg / 0.5 (3 ml) UD ONE (23:41)
[2018-07-27] MEDS: Albuterol-Ipratrop 3 mg / 0.5 (3 ml) UD INH SCH (23:42)
[2018-07-28] MEDS: HYDROmorphone 1 mg/ml ISec IM PRN ×4 (01:22→22:49)
[2018-07-28] MEDS: Albuterol-Ipratrop 3 mg / 0.5 (3 ml) UD INH SCH ×4 (02:06→20:00)
[2018-07-28] MEDS ORDERED: Albuterol-Ipratrop 3 mg / 0.5 (3 ml) UD ONE (02:10)
[2018-07-28 05:29] LABS: CK-MB 1.14 ng/mL (0.0-3.38); TROPONIN I 0.123 ng/mL (0.00-0.120)
[2018-07-28] MEDS: Multivitamin Vitamin B Complex (Nephro-Vite) Tab PO SCH (08:43)
[2018-07-28] MEDS: (Novolin R) Insulin Human Regular 100 units/ml vial SC SCH ×4 (08:43→22:04)
[2018-07-28] MEDS ORDERED: Pantoprazole 20 mg EC Tab PO SCH (10:00)
[2018-07-28] MEDS ORDERED: Insulin Detemir 100 units/ml Vial (Levemir) SC SCH (10:00)
[2018-07-28] MEDS: Ranolazine 500 mg Extended Release Tablets PO SCH ×2 (11:00→17:45)
--- NOTE | 2018-07-28 11:44 | CARD ---
APPROVED REPORT Date of service: 07/28/2018 EKG Measurement Heart [id number] ID [id number] <Conclusion> Sinus bradycardia Left ventricular hypertrophy with QRS widening and repolarization abnormality Possible Inferior infarct, age undetermined Abnormal ECG
--- NOTE | 2018-07-28 13:32 | CP.PCM.CON ---
History of Present Illness - History of Present Illness History of Present Illness: CC: Shortness of breath HPI: 1. ESRD chronic and stable on HD 2. HTN is chornic and stable on coreg, norvasc 3. Angina chornic and stable s/p CABG now with atretic grafts s/p PCI if RCA and stable on imdur: non-revascularizable small residual coronary disease 4. Severe PVD s/p bilateral BKA 4. DM brittle labile sugers 5. AFIB/flutter: on NOAC ; hx of RA thrombus 6. Moderate LV dysfunction EF 40% chronic Current: No CP, No SOB, no fevers or chills. Patient has been compliant with TTS HD prior to admission. Review of Systems - Review of Systems All systems: reviewed and no additional remarkable complaints except Past Patient History - Infectious Disease Hx of Infectious Diseases: None - Tetanus Immunizations Tetanus Immunization: >10 years Ago - Past Medical History & Family History Past Medical History?: Yes - Past Social History Smoking Status: Unknown If Ever Smoked - CARDIAC Hx Atrial Fibrillation: Yes Hx Cardia Arrhythmia: Yes Hx Congestive Heart Failure: Yes Hx Hypercholesterolemia: Yes Hx Hypertension: Yes - PULMONARY Hx Asthma: Yes Hx Bronchitis: Yes Hx Chronic Obstructive Pulmonary Disease (COPD): Yes Hx Pneumonia: Yes - NEUROLOGICAL Hx Alzheimer's Disease: Yes Hx Seizures: Yes - HEENT Hx HEENT Problems: Yes Hx Blind: Yes Hx Cataracts: Yes - RENAL Hx Chronic Kidney Disease: Yes Hx Kidney Stones: No - ENDOCRINE/METABOLIC Hx Hyperthyroidism: No Hx Hypothyroidism: Yes - HEMATOLOGICAL/ONCOLOGICAL Hx Anemia: Yes - INTEGUMENTARY Hx Dermatological Problems: No - MUSCULOSKELETAL/RHEUMATOLOGICAL Hx Arthritis: Yes - GASTROINTESTINAL Hx Gall Bladder Disease: Yes Hx Gastritis: Yes - GENITOURINARY/GYNECOLOGICAL Hx Sexually Transmitted Disorders: No - PSYCHIATRIC Hx Anxiety: Yes Hx Depression: Yes Hx Substance Use: No - SURGICAL HISTORY Hx Cholecystectomy: Yes (2011) 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/2009) Hx Coronary Stent: Yes - ANESTHESIA Hx Anesthesia: Yes Hx Anesthesia Reactions: No Hx Malignant Hyperthermia: No Meds Allergies/Adverse Reactions: Allergies Allergy/AdvReac Type Severity Reaction Status Date / Time acetaminophen [From Percocet] Allergy RASH Verified 07/15/18 09:46 atenolol Allergy RASH Verified 07/15/18 09:46 digoxin Allergy RASH Verified 07/15/18 09:46 milk Allergy ITCHING Verified 07/15/18 09:46 morphine Allergy RASH Verified 07/15/18 09:46 oxycodone HCl [From Percocet] Allergy RASH Verified 07/15/18 09:46 - Medications Medications: Current Medications Albuterol/Ipratropium (Duoneb 3 Mg/0.5 Mg (3 Ml) Ud) 3 ml INH RQ6 [facility] Last Admin: 07/28/18 08:46 Dose: Not Given Amiodarone HCl (Cordarone) 200 mg PO DAILY [facility] Last Admin: 07/28/18 11:00 Dose: 200 mg Amlodipine Besylate (Norvasc) 10 mg PO DAILY [facility] Last Admin: 07/28/18 11:00 Dose: 10 mg Apixaban (Eliquis) 2.5 mg PO BID [facility] Last Admin: 07/28/18 11:00 Dose: 2.5 mg Aspirin (Aspirin Chewable) 81 mg PO DAILY [facility] Last Admin: 07/28/18 11:00 Dose: 81 mg Calcitriol (Rocaltrol) 0.25 mcg PO TTS [facility] Calcium Carbonate (Oscal) 500 mg PO BID [facility] Last Admin: 07/28/18 10:59 Dose: 500 mg Carvedilol (Coreg) 12.5 mg PO BID [facility] Last Admin: 07/28/18 11:00 Dose: 12.5 mg Clopidogrel Bisulfate (Plavix) 75 mg PO DAILY [facility] Last Admin: 07/28/18 10:59 Dose: 75 mg Diltiazem HCl (Cardizem) 30 mg PO QID [facility] Last Admin: 07/28/18 10:59 Dose: 30 mg Docusate Sodium (Colace) 100 mg PO DAILY PRN PRN Reason: FOR CONSTIPATION Epoetin Tom (Procrit) 4,000 unit IV [facility] Ergocalciferol (Drisdol 50,000 Intl Units Cap) 1 cap PO Q7D [facility] Last Admin: 07/27/18 22:38 Dose: 1 cap Hydromorphone HCl (Dilaudid) 1 mg IM Q6H PRN PRN Reason: Pain, severe (8-10) Last Admin: 07/28/18 08:44 Dose: 1 mg Insulin Detemir (Levemir) 22 unit SC DAILY [facility] Last Admin: 07/28/18 10:59 Dose: 22 unit Insulin Glargine (Lantus) 8 unit SC HS [facility] Last Admin: 07/27/18 23:13 Dose: 8 units Insulin Human Regular (Novolin R) 0 unit SC [facility]; Protocol Last Admin: 07/28/18 12:36 Dose: 3 units Isosorbide Mononitrate (Imdur) 60 mg PO DAILY [facility] Last Admin: 07/28/18 11:00 Dose: 60 mg Levetiracetam (Keppra) 500 mg PO BID [facility] Last Admin: 07/28/18 11:00 Dose: 500 mg Losartan Potassium (Cozaar) 100 mg PO DAILY [facility] Last Admin: 07/28/18 11:01 Dose: 100 mg Montelukast Sodium (Singulair) 10 mg PO DAILY [facility] Last Admin: 07/28/18 10:59 Dose: 10 mg Pantoprazole Sodium (Protonix Ec Tab) 20 mg PO DAILY [facility] Last Admin: 07/28/18 11:02 Dose: 20 mg Ranolazine (Ranexa) 500 mg PO BID [facility] Last Admin: 07/28/18 11:00 Dose: 500 mg Rosuvastatin Calcium (Crestor) 10 mg PO [facility] Last Admin: 07/27/18 22:37 Dose: 10 mg Sertraline HCl (Zoloft) 50 mg PO DAILY [facility] Last Admin: 07/28/18 11:01 Dose: 50 mg Valproate Sodium (Depakene Cap) 250 mg PO QID [facility] Last Admin: 07/28/18 10:59 Dose: 250 mg Vitamin B Complex/Vit C/Folic Acid (Nephro-Courtney) 1 tab PO 0800 [facility] Last Admin: 07/28/18 08:43 Dose: 1 tab Physical Exam - Constitutional Appears: No Acute Distress - Head Exam Head Exam: ATRAUMATIC, NORMAL INSPECTION, NORMOCEPHALIC - Eye Exam Eye Exam: EOMI. absent: Normal appearance, Scleral icterus Additional comments: legally blind - ENT Exam ENT Exam: Mucous Membranes Moist - Neck Exam Neck exam: Positive for: Full Rom, Normal Inspection. Negative for: Tenderness, Thyromegaly - Respiratory Exam Respiratory Exam: Clear to Auscultation Bilateral, NORMAL BREATHING PATTERN. absent: Rhonchi, Wheezes - Cardiovascular Exam Cardiovascular Exam: REGULAR RHYTHM, +S1, +S2, Systolic Murmur - GI/Abdominal Exam GI & Abdominal Exam: Soft. absent: Tenderness - Extremities Exam Additional comments: b/l BKA, no active ulcers Results - Vital Signs Recent Vital Signs: Last Vital Signs Temp 98.4 F 07/28/18 08:20 Pulse 66 07/28/18 12:09 Resp 20 07/28/18 08:20 BP 147/79 07/28/18 11:00 Pulse Ox 100 07/28/18 08:20 - Labs Result Diagrams: 07/27/18 14:53 07/27/18 14:53 Labs: Laboratory Results - last 24 hr 07/27/18 07/27/18 07/27/18 14:53 14:53 14:53 WBC 7.1 RBC 3.38 L Hgb 10.2 L Hct 31.9 L MCV 94.5 H MCH 30.2 MCHC 31.9 L RDW 19.2 H Plt Count 177 MPV 10.4 Neut % (Auto) 55.8 Lymph % (Auto) 32.4 Harmon % (Auto) 8.3 Eos % (Auto) 1.9 Baso % (Auto) 1.6 Neut # (Auto) 4.0 Lymph # (Auto) 2.3 Harmon # (Auto) 0.6 Eos # (Auto) 0.1 Baso # (Auto) 0.1 PT 12.9 H INR 1.2 APTT 23 Sodium 136 Potassium 4.6 Chloride 96 L Carbon Dioxide 24 Anion Gap 20 BUN 44 H Creatinine 6.3 H Est GFR ( Amer) 12 Est GFR (Non-Af Amer) 10 POC Glucose (mg/dL) Random Glucose 526 H* D Calcium 9.0 Total Bilirubin 0.4 AST 16 L D ALT 10 L D Alkaline Phosphatase 205 H D Total Creatine Kinase CK-MB (Mass) Troponin I 0.0310 Total Protein 6.8 Albumin 3.7 Globulin 3.1 Albumin/Globulin Ratio 1.2 07/27/18 07/27/18 07/28/18 18:07 23:07 04:42 WBC RBC Hgb Hct MCV MCH MCHC RDW Plt Count MPV Neut % (Auto) Lymph % (Auto) Harmon % (Auto) Eos % (Auto) Baso % (Auto) Neut # (Auto) Lymph # (Auto) Harmon # (Auto) Eos # (Auto) Baso # (Auto) PT INR APTT Sodium Potassium Chloride Carbon Dioxide Anion Gap BUN Creatinine Est GFR ( Amer) Est GFR (Non-Af Amer) POC Glucose (mg/dL) 201 H 80 Random Glucose Calcium Total Bilirubin AST ALT Alkaline Phosphatase Total Creatine Kinase 28 L CK-MB (Mass) 1.14 Troponin I 0.1230 H* Total Protein Albumin Globulin Albumin/Globulin Ratio 07/28/18 07/28/18 07/28/18 07:38 08:25 11:18 WBC RBC Hgb Hct MCV MCH MCHC RDW Plt Count MPV Neut % (Auto) Lymph % (Auto) Harmon % (Auto) Eos % (Auto) Baso % (Auto) Neut # (Auto) Lymph # (Auto) Harmon # (Auto) Eos # (Auto) Baso # (Auto) PT INR APTT Sodium Potassium Chloride Carbon Dioxide Anion Gap BUN Creatinine Est GFR ( Amer) Est GFR (Non-Af Amer) POC Glucose (mg/dL) 186 H 197 H 201 H Random Glucose Calcium Total Bilirubin AST ALT Alkaline Phosphatase Total Creatine Kinase CK-MB (Mass) Troponin I Total Protein Albumin Globulin Albumin/Globulin Ratio - EKG Data EKG Interpreted by: Myself Assessment & Plan - Assessment and Plan (Free Text) Assessment: 38 year old man transgender woman CHF exacerbation now improved - Known mild-mod LV systolic dysfunction - cont HD to maintain euvolemia, cont BP control - Ischemic cardiomyopathy with atretic grafts and residual small vessel dise ase: no longer a candidate for PCI or revascularization - mild tropnin c/w ESRD, microvascular disease and demand ischemia - optimal med therapy: ASA, statin, ranexa, coreg, imdur. HTN is chornic and stable on current meds coreg, cardizem, losartan Atrial flutter complicated with RA thrombus and pulmonary embolism - increase eliquis 5mg po BID; cont amidoarone for rhythm control - d/c plavix if on ASA and eliquis Chronic systolic CHF coreg, BP control and HD to maintain fluid Diabetes brittle and lable sugars: cont to adjust RX
--- NOTE | 2018-07-28 19:07 | CP.PCM.HP ---
History of Present Illness - History of Present Illness History of Present Illness: pt came in for chest pain sob Present on Admission - Present on Admission Any Indicators Present on Admission: Yes History of Uncontrolled Diabetes: Yes Review of Systems - Review of Systems Systems not reviewed;Unavailable: Acuity of Condition, Respiratory Distress - Constitutional Constitutional: Fatigue - EENT Eyes: Spots in Vision, Loss of Vision Ears: As Per HPI Nose/Mouth/Throat: As Per HPI - Cardiovascular Cardiovascular: Chest Pain at Rest, Dyspnea, Pain Radiating to Arm/Neck/Jaw - Respiratory Respiratory: Dyspnea - Gastrointestinal Gastrointestinal: As Per HPI - Genitourinary Genitourinary: As Per HPI - Reproductive: Male Reproductive:Male: As Per HPI - Musculoskeletal Musculoskeletal: As Per HPI Additional comments: bilareral amputation - Integumentary Integumentary: As Per HPI - Neurological Neurological: Paresthesias - Psychiatric Psychiatric: Depression - Endocrine Endocrine: Cold Intolorance - Hematologic/Lymphatic Hematologic: As Per HPI Past Patient History - Infectious Disease Hx of Infectious Diseases: None - Tetanus Immunizations Tetanus Immunization: >10 years Ago - Past Medical History & Family History Past Medical History?: Yes - Past Social History Smoking Status: Unknown If Ever Smoked - CARDIAC Hx Atrial Fibrillation: Yes Hx Cardia Arrhythmia: Yes Hx Congestive Heart Failure: Yes Hx Hypercholesterolemia: Yes Hx Hypertension: Yes - PULMONARY Hx Asthma: Yes Hx Bronchitis: Yes Hx Chronic Obstructive Pulmonary Disease (COPD): Yes Hx Pneumonia: Yes - NEUROLOGICAL Hx Alzheimer's Disease: Yes Hx Seizures: Yes - HEENT Hx HEENT Problems: Yes Hx Blind: Yes Hx Cataracts: Yes - RENAL Hx Chronic Kidney Disease: Yes Hx Kidney Stones: No - ENDOCRINE/METABOLIC Hx Hyperthyroidism: No Hx Hypothyroidism: Yes - HEMATOLOGICAL/ONCOLOGICAL Hx Anemia: Yes - INTEGUMENTARY Hx Dermatological Problems: No - MUSCULOSKELETAL/RHEUMATOLOGICAL Hx Arthritis: Yes - GASTROINTESTINAL Hx Gall Bladder Disease: Yes Hx Gastritis: Yes - GENITOURINARY/GYNECOLOGICAL Hx Sexually Transmitted Disorders: No - PSYCHIATRIC Hx Anxiety: Yes Hx Depression: Yes Hx Substance Use: No - SURGICAL HISTORY Hx Cholecystectomy: Yes (2011) 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/2009) Hx Coronary Stent: Yes - ANESTHESIA Hx Anesthesia: Yes Hx Anesthesia Reactions: No Hx Malignant Hyperthermia: No Meds Allergies/Adverse Reactions: Allergies Allergy/AdvReac Type Severity Reaction Status Date / Time acetaminophen [From Percocet] Allergy RASH Verified 07/15/18 09:46 atenolol Allergy RASH Verified 07/15/18 09:46 digoxin Allergy RASH Verified 07/15/18 09:46 milk Allergy ITCHING Verified 07/15/18 09:46 morphine Allergy RASH Verified 07/15/18 09:46 oxycodone HCl [From Percocet] Allergy RASH Verified 07/15/18 09:46 Physical Exam - Constitutional Appears: Non-toxic - Head Exam Head Exam: ATRAUMATIC - Eye Exam Eye Exam: Conjunctival injection Additional comments: legaly blind - ENT Exam ENT Exam: Mucous Membranes Moist - Neck Exam Neck exam: Positive for: Full Rom - Respiratory Exam Respiratory Exam: Decreased Breath Sounds - Cardiovascular Exam Cardiovascular Exam: Irregular Rhythm - GI/Abdominal Exam GI & Abdominal Exam: Normal Bowel Sounds - Rectal Exam Rectal Exam: NORMAL INSPECTION - Exam Additional comments: small genitalia - Extremities Exam Additional comments: bilateral amputation - Back Exam Back exam: CVA tenderness (L) - Neurological Exam Neurological exam: Oriented x3 - Psychiatric Exam Psychiatric exam: Depressed, Normal Affect - Skin Skin Exam: Pallor Results - Vital Signs Recent Vital Signs: Last Vital Signs Temp 97.5 F L 07/28/18 16:00 Pulse 57 L 07/28/18 17:54 Resp 20 07/28/18 16:00 BP 114/50 L 07/28/18 17:55 Pulse Ox 100 07/28/18 16:00 - Labs Result Diagrams: 07/27/18 14:53 07/27/18 14:53 Labs: Laboratory Results - last 24 hr 07/27/18 07/27/18 07/28/18 18:07 23:07 04:42 POC Glucose (mg/dL) 201 H 80 Total Creatine Kinase 28 L CK-MB (Mass) 1.14 Troponin I 0.1230 H* 07/28/18 07/28/18 07/28/18 07:38 08:25 11:18 POC Glucose (mg/dL) 186 H 197 H 201 H Total Creatine Kinase CK-MB (Mass) Troponin I 07/28/18 07/28/18 16:33 16:35 POC Glucose (mg/dL) 68 71 Total Creatine Kinase CK-MB (Mass) Troponin I Assessment & Plan - Assessment and Plan (Free Text) Assessment: chf cad dmin uncontroled esrf Plan: as per orders - Date & Time Date: 07/28/18 Time: 19:09
[2018-07-28] MEDS ORDERED: (Lantus) Insulin Glargine, Recombinant SC SCH (22:00)
[2018-07-29] MEDS: Albuterol-Ipratrop 3 mg / 0.5 (3 ml) UD INH SCH ×3 (01:49→13:25)
[2018-07-29] MEDS: HYDROmorphone 1 mg/ml ISec IM PRN ×2 (05:29→14:38)
[2018-07-29] MEDS ORDERED: Epoetin Alfa 4000 UNIT/ML Inj IV SCH (10:00)
--- NOTE | 2018-07-29 12:36 | CP.PCM.PN ---
Subjective - Date & Time of Evaluation Date of Evaluation: 07/29/18 Time of Evaluation: 12:34 - Subjective Subjective: less sob no chest pain today Objective - Vital Signs/Intake and Output Vital Signs (last 24 hours): Temp Pulse Resp BP Pulse Ox 97.5 F L 57 L 16 107/61 100 07/29/18 09:50 07/29/18 12:20 07/29/18 12:20 07/29/18 12:20 07/29/18 10:05 - Medications Medications: Current Medications Albuterol/Ipratropium (Duoneb 3 Mg/0.5 Mg (3 Ml) Ud) 3 ml INH RQ6 [facility] Last Admin: 07/29/18 07:42 Dose: 3 ml Amiodarone HCl (Cordarone) 200 mg PO DAILY [facility] Last Admin: 07/28/18 11:00 Dose: 200 mg Amlodipine Besylate (Norvasc) 10 mg PO DAILY [facility] Last Admin: 07/28/18 11:00 Dose: 10 mg Apixaban (Eliquis) 2.5 mg PO BID [facility] Last Admin: 07/28/18 17:54 Dose: 2.5 mg Aspirin (Aspirin Chewable) 81 mg PO DAILY [facility] Last Admin: 07/28/18 11:00 Dose: 81 mg Calcitriol (Rocaltrol) 0.25 mcg PO TTS [facility] Calcium Carbonate (Oscal) 500 mg PO BID [facility] Last Admin: 07/28/18 17:45 Dose: 500 mg Carvedilol (Coreg) 12.5 mg PO BID [facility] Last Admin: 07/28/18 17:55 Dose: Not Given Clopidogrel Bisulfate (Plavix) 75 mg PO DAILY [facility] Last Admin: 07/28/18 10:59 Dose: 75 mg Diltiazem HCl (Cardizem) 30 mg PO QID [facility] Last Admin: 07/28/18 21:26 Dose: Not Given Docusate Sodium (Colace) 100 mg PO DAILY PRN PRN Reason: FOR CONSTIPATION Epoetin Tom (Procrit) 4,000 unit IV TTS [facility] Ergocalciferol (Drisdol 50,000 Intl Units Cap) 1 cap PO Q7D [facility] Last Admin: 07/27/18 22:38 Dose: 1 cap Famotidine (Pepcid) 20 mg PO DAILY [facility] Heparin Sodium (Porcine) (Heparin) 3,700 units IVP TTS [facility] Last Admin: 07/29/18 12:20 Dose: 3,700 units Hydromorphone HCl (Dilaudid) 1 mg IM Q6H PRN PRN Reason: Pain, severe (8-10) Last Admin: 07/29/18 05:29 Dose: 1 mg Insulin Glargine (Lantus) 8 unit SC [facility] Last Admin: 07/28/18 22:07 Dose: 8 units Insulin Human Regular (Novolin R) 0 unit SC [facility]; Protocol Last Admin: 07/28/18 22:04 Dose: Not Given Isosorbide Mononitrate (Imdur) 60 mg PO DAILY [facility] Last Admin: 07/28/18 11:00 Dose: 60 mg Levetiracetam (Keppra) 500 mg PO BID [facility] Last Admin: 07/28/18 17:54 Dose: 500 mg Losartan Potassium (Cozaar) 100 mg PO DAILY [facility] Last Admin: 07/28/18 11:01 Dose: 100 mg Montelukast Sodium (Singulair) 10 mg PO DAILY [facility] Last Admin: 07/28/18 10:59 Dose: 10 mg Ranolazine (Ranexa) 500 mg PO BID [facility] Last Admin: 07/28/18 17:45 Dose: 500 mg Rosuvastatin Calcium (Crestor) 10 mg PO [facility] Last Admin: 07/28/18 21:30 Dose: 10 mg Sertraline HCl (Zoloft) 50 mg PO DAILY [facility] Last Admin: 07/28/18 11:01 Dose: 50 mg Valproate Sodium (Depakene Cap) 250 mg PO QID [facility] Last Admin: 07/28/18 21:30 Dose: 250 mg Vitamin B Complex/Vit C/Folic Acid (Nephro-Courtney) 1 tab PO 0800 [facility] Last Admin: 07/28/18 08:43 Dose: 1 tab - Labs Labs: 07/27/18 14:53 07/27/18 14:53 PT 12.9 SECONDS (9.7-12.2) H 07/27/18 14:53 INR 1.2 07/27/18 14:53 APTT 23 SECONDS (21-34) 07/27/18 14:53 - Constitutional Appears: Non-toxic - Head Exam Head Exam: ATRAUMATIC - Eye Exam Eye Exam: Conjunctival injection - ENT Exam ENT Exam: Normal Exam - Neck Exam Neck Exam: Full ROM - Respiratory Exam Respiratory Exam: Decreased Breath Sounds - Cardiovascular Exam Cardiovascular Exam: Irregular Rhythm - GI/Abdominal Exam GI & Abdominal Exam: Normal Bowel Sounds - Rectal Exam Rectal Exam: NORMAL INSPECTION - Extremities Exam Additional comments: bilateral amputaion - Back Exam Back Exam: NORMAL INSPECTION - Neurological Exam Neurological Exam: Oriented x3 - Skin Skin Exam: Pallor Assessment and Plan - Assessment and Plan (Free Text) Assessment: dmid improved chf having dialysis now feels beter cad Plan: cad d/c after dialysis cont same med
[2018-07-29] MEDS: (Novolin R) Insulin Human Regular 100 units/ml vial SC SCH ×3 (14:15→16:58)
[2018-07-29] MEDS: Multivitamin Vitamin B Complex (Nephro-Vite) Tab PO SCH (14:31)
[2018-07-29] MEDS: Ranolazine 500 mg Extended Release Tablets PO SCH ×2 (14:33→18:23)
--- NOTE | 2018-07-29 16:08 | CP.PCM.PN ---
Subjective - Date & Time of Evaluation Date of Evaluation: 07/29/18 Time of Evaluation: 16:08 - Subjective Subjective: PATIENT SEEN AND EXAMINED AT THE BEDSIDE Objective - Vital Signs/Intake and Output Vital Signs (last 24 hours): Temp Pulse Resp BP Pulse Ox 97.5 F L 55 L 16 118/57 L 100 07/29/18 09:50 07/29/18 13:00 07/29/18 12:50 07/29/18 12:50 07/29/18 10:05 - Medications Medications: Current Medications Albuterol/Ipratropium (Duoneb 3 Mg/0.5 Mg (3 Ml) Ud) 3 ml INH RQ6 [facility] Last Admin: 07/29/18 13:25 Dose: Not Given Amiodarone HCl (Cordarone) 200 mg PO DAILY [facility] Last Admin: 07/29/18 14:15 Dose: Not Given Amlodipine Besylate (Norvasc) 10 mg PO DAILY [facility]S [facility] Last Admin: 07/29/18 14:32 Dose: 10 mg Apixaban (Eliquis) 2.5 mg PO BID [facility]S [facility] Last Admin: 07/29/18 14:33 Dose: 2.5 mg Aspirin (Aspirin Chewable) 81 mg PO DAILY [facility]S [facility] Last Admin: 07/29/18 14:31 Dose: 81 mg Calcitriol (Rocaltrol) 0.25 mcg PO TTS [facility]S [facility] Last Admin: 07/29/18 14:30 Dose: 0.25 mcg Calcium Carbonate (Oscal) 500 mg PO BID [facility] 234 [facility]S [facility] Last Admin: 07/29/18 14:19 Dose: Not Given Carvedilol (Coreg) 12.5 mg PO BID [facility] 234 [facility]S [facility] Last Admin: 07/29/18 14:14 Dose: Not Given Clopidogrel Bisulfate (Plavix) 75 mg PO DAILY [facility] 234 [facility]S [facility] Last Admin: 07/29/18 14:30 Dose: 75 mg Diltiazem HCl (Cardizem) 30 mg PO QID [facility] 234 [facility]S [facility] Last Admin: 07/29/18 14:32 Dose: 30 mg Docusate Sodium (Colace) 100 mg PO DAILY PRN PRN Reason: FOR CONSTIPATION Epoetin Tom (Procrit) 4,000 unit IV TTS [facility] 234 [facility]S [facility] Ergocalciferol (Drisdol 50,000 Intl Units Cap) 1 cap PO Q7D [facility] 234 [facility]S [facility] Last Admin: 07/27/18 22:38 Dose: 1 cap Famotidine (Pepcid) 20 mg PO DAILY [facility] 234 [facility]S [facility] Last Admin: 07/29/18 14:30 Dose: 20 mg Heparin Sodium (Porcine) (Heparin) 3,700 units IVP TTS [facility] 234 [facility]S [facility] Last Admin: 07/29/18 12:20 Dose: 3,700 units Hydromorphone HCl (Dilaudid) 1 mg IM Q6H PRN PRN Reason: Pain, severe (8-10) Last Admin: 07/29/18 14:38 Dose: 1 mg Insulin Glargine (Lantus) 8 unit SC [facility] 234 B[facility]S [facility] Last Admin: 07/28/18 22:07 Dose: 8 units Insulin Human Regular (Novolin R) 0 unit SC [facility] 234 BEDS [facility]; Protocol Last Admin: 07/29/18 14:16 Dose: Not Given Isosorbide Mononitrate (Imdur) 60 mg PO DAILY [facility] 234 [facility]S [facility] Last Admin: 07/29/18 14:30 Dose: 60 mg Levetiracetam (Keppra) 500 mg PO BID [facility] 234 [facility]S [facility] Last Admin: 07/29/18 14:30 Dose: 500 mg Losartan Potassium (Cozaar) 100 mg PO DAILY [facility] 234 [facility]S [facility] Last Admin: 07/29/18 14:33 Dose: 100 mg Montelukast Sodium (Singulair) 10 mg PO DAILY [facility] 234 [facility]S [facility] Last Admin: 07/29/18 14:34 Dose: 10 mg Ranolazine (Ranexa) 500 mg PO BID [facility] 234 [facility]S [facility] Last Admin: 07/29/18 14:33 Dose: Not Given Rosuvastatin Calcium (Crestor) 10 mg PO HS [facility] 234 [facility]S [facility] Last Admin: 07/28/18 21:30 Dose: 10 mg Sertraline HCl (Zoloft) 50 mg PO DAILY [facility] 234 [facility]S [facility] Last Admin: 07/29/18 14:30 Dose: 50 mg Valproate Sodium (Depakene Cap) 250 mg PO QID [facility] 234 [facility]S [facility] Last Admin: 07/29/18 14:31 Dose: 250 mg Vitamin B Complex/Vit C/Folic Acid (Nephro-Courtney) 1 tab PO 0800 [facility]S [facility] Last Admin: 07/29/18 14:31 Dose: 1 tab - Labs Labs: 07/27/18 14:53 07/27/18 14:53 PT 12.9 SECONDS (9.7-12.2) H 07/27/18 14:53 INR 1.2 07/27/18 14:53 APTT 23 SECONDS (21-34) 07/27/18 14:53 Assessment and Plan - Assessment and Plan (Free Text) Assessment: FOLLOW UP WITH DR BELL IN 1-2 WEEK ---CALL FOR APPOINTMENT CONTINUE HOME MEDICATION ACTIVITY TOLERATED DIALYSIS ORDER CALL DR BELL OR GO TO THE EMERGENCY ROOM IF SYMPTOM RETURN OR WORSENING
[2018-07-29 17:12] VITALS: RESP 20; TEMP 97.8; O2SAT 96
[2018-07-29 18:23] VITALS: BP 114/67; PULSE 73
--- NOTE | 2018-07-30 10:26 | IP.NPCORE ---
Heart Failure Core Measure - Heart Failure Ejection Fraction: Less Than 40 % RAÚL Inhibitor Prescribed: No Contraindication/Reason for not providing: arb Beta-Andrew Prescribed: Carvedilol Angiotensin II Receptor Andrew Prescribed: Yes AnticoagulationTherapy for Atrial Fibrillation/Atrialflutter: Yes Aldosterone Antagonist Prescribed: No Contraindication/Reason for not providing: esrd Hydralazine Nitrate Prescribed: No Contraindication/Reason for not providing: esrd Implantable Cardioverter Defibrillator Therapy: No Contraindication/Reason for not providing: not indicated by the production broaching machine operator Cardiac Resynchronization Therapy Prescribed: No Contraindication/Reason for not providing: not indicated by the production broaching machine operator - Follow up Will be discharged to: Home Follow Up Date (must be within 7 days from discharge): 08/04/18 Follow Up Time: 12:00
--- NOTE | 2018-07-30 17:54 | CARD ---
APPROVED REPORT Date of service: 07/27/2018 EKG Measurement Heart [id number] CT [id number] <Conclusion> Normal sinus rhythm Left ventricular hypertrophy with QRS widening and repolarization abnormality Possible Inferior infarct, age undetermined Abnormal ECG
[2018-07-31] MEDS ORDERED: EPOETIN ALFA 4,000 UNIT/ML ML Dialysis IV SCH (10:00)
== END 2018-07-29 20:06 | disposition home or self-care (01) ==
LOC: C.ER 12:57 → C.9E 15:35 → C.5S 07-28 07:22
PROVIDERS: ADMIT Internal Medicine; ATTEND Internal Medicine
DX: E11.65 Type 2 diabetes mellitus with hyperglycemia (principal); E11.51 Type 2 diabetes mellitus with diabetic peripheral angiopathy without gangrene; E11.22 Type 2 diabetes mellitus with diabetic chronic kidney disease; E03.9 Hypothyroidism, unspecified; F64.9 Gender identity disorder, unspecified; I13.2 Hypertensive heart and chronic kidney disease with heart failure and with stage 5 chronic kidney disease, or end stage renal disease; I25.119 Atherosclerotic heart disease of native coronary artery with unspecified angina pectoris; I26.99 Other pulmonary embolism without acute cor pulmonale; I48.91 Unspecified atrial fibrillation; I50.22 Chronic systolic (congestive) heart failure; J44.9 Chronic obstructive pulmonary disease, unspecified; N18.6 End stage renal disease; Z89.512 Acquired absence of left leg below knee; Z95.1 Presence of aortocoronary bypass graft
CPT/HCPCS: 71045; 80053; 82948; 84484; 85025; 85610; 85730; 93005; 94640; 96372; 96374; 99285; G0257; G0378; J0885; J1170; J1644

== ENCOUNTER 2018-08-05 12:04 | Inpatient (IN) | payer OTHER ==
[2018-08-05 12:05] VITALS: PULSE 110; BMI 18.8
[2018-08-05 13:14] LABS: BASO # 0.1 K/uL (0.0-0.2); BASO % 0.9 % (0.0-2.0); EOS # 0.3 K/uL (0.0-0.7); EOS % 3.3 % (0.0-4.0); HEMOGLOBIN 11.1 g/dL (12.0-18.0); LYMPH # 1.8 K/uL (1.0-4.3); LYMPH % 17.1 % (20.0-40.0); MEAN CELL VOLUME 94.4 fL (80.0-94.0); MEAN CORPUSCULAR HEMOGLOBIN 30.5 pg (27.0-31.0); MEAN CORPUSCULAR HGB CONC 32.3 g/dL (33.0-37.0); MEAN PLATELET VOLUME 10.3 fL (7.2-11.7); MONO # 0.4 K/uL (0.0-0.8); NEUT # 7.9 K/uL (1.8-7.0); NEUT % 74.7 % (50.0-75.0); NRBC % 0.1 % (0.0-2.0); RBC 3.64 Mil/uL (4.40-5.90); RED CELL DISTRIBUTION WIDTH 19.6 % (11.5-14.5); WHITE BLOOD COUNT 10.6 K/uL (4.8-10.8)
[2018-08-05 13:23] LABS: INR 1.2; PROTHROMBIN TIME 13.5 SECONDS (9.7-12.2)
--- NOTE | 2018-08-05 13:28 | RAD ---
HISTORY: chest pain COMPARISON: Chest x-ray performed 07/27/18 TECHNIQUE: Chest, one view. FINDINGS: Examination limited by habitus and hypoinflation. Right IJ approach dialysis catheter extends to the expected location of the right atrium. LUNGS: Moderate pulmonary venous congestion. No focal consolidation. Please note that chest x-ray has limited sensitivity for the detection of pulmonary masses. PLEURA: No significant pleural effusion identified. No definite pneumothorax . CARDIOVASCULAR: Median sternotomy wires. Cardiomegaly. Atherosclerotic calcifications. OSSEOUS STRUCTURES: Degenerative changes. Osseous demineralization. High-riding bilateral humeral heads may be seen in the setting of chronic rotator cuff injury. VISUALIZED UPPER ABDOMEN: Unremarkable. OTHER FINDINGS: None. IMPRESSION: Right IJ approach central venous catheter extends expected location of the right atrium. Cardiomegaly. Moderate pulmonary venous congestion. Hypoinflation.
[2018-08-05 14:01] LABS: BLOOD UREA NITROGEN 58 mg/dL (9-20); GFR NON-AFRICAN AMERICAN 9
[2018-08-05 14:02] LABS: ALB/GLOB RATIO 1.3 (1.0-2.1); ALBUMIN 4.4 g/dL (3.5-5.0); ALT/SGPT 13 U/L (21-72); AST/SGOT 18 U/L (17-59)
--- NOTE | 2018-08-05 14:34 | C.PDOC ---
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 Patient speaking in full sentences and denies fever, chills, nausea, vomiting or any other complaints at this time. Time Seen by Provider: 08/05/18 12:25 Chief Complaint (Nursing): Chest Pain History Per: Patient History/Exam Limitations: no limitations Onset/Duration Of Symptoms: Days Current Symptoms Are (Timing): Still Present Past Medical History Reviewed: Historical Data, Nursing Documentation, Vital Signs Vital Signs: Last Vital Signs Temp Pulse 69 08/05/18 12:26 Resp 20 08/05/18 12:26 BP 203/56 H 08/05/18 12:26 Pulse Ox 99 08/05/18 12:26 - Medical History PMH: Alzheimer's Disease, Anemia, Anxiety, Arthritis, Asthma, Atrial Fibrillation, Bronchitis, CAD, Cardia Arrhythmia, CHF, COPD, CVA, Depression, Diabetes, Deep Vein Thrombosis, Gastritis, Gastrointestinal Ulcer, Gall Bladder Disease, HTN, Hypercholesterolemia, Hypothyroidism, Pneumonia, End Stage Renal Disease, Chronic Kidney Disease, Seizures Surgical History: CABG (12/2009), Cholecystectomy (2011), Coronary Stent - [facility] (07/15/18) ABDOMINAL WALL SINOGRAM (12/31/13) ASSISTANCE WITH RESPIRATORY VENTILATION, 24-96 HRS, CPAP (05/31/18) C.A.T. SCAN OF ABDOMEN (10/31/13) CENTRAL VENOUS CATHETER PLACEMENT WITH GUIDANCE (02/10/15) CHANGE OTHER DEVICE IN TRUNK SUBCU/FASCIA, GRINDER OPERATOR SURFACE TOOL APPROACH (06/01/17) DILATE R ANT TIB ART W DRUG-ELUT INTRALUM, PERC (08/12/15) DILATION OF LEFT FEMORAL ARTERY, PERCUTANEOUS APPROACH (07/04/16) DILATION OF RIGHT FEMORAL ARTERY, PERCUTANEOUS APPROACH (08/12/15) DILATION OF RIGHT POPLITEAL ARTERY, PERCUTANEOUS APPROACH (08/12/15) DX ULTRASOUND-HEART (01/05/13) ENTERAL INFUSION OF CONCENTRATED NUT. SUBSTANCES (06/28/13) EXCIS DEBRIDE OF WOUND, INFECT, OR BURN (08/03/14) EXCISION OF STOMACH, ENDO, DIAGN (03/03/17) EXTIRPATION OF MATTER FROM L FEM ART, PERC APPROACH (07/04/16) EXTIRPATION OF MATTER FROM R FEM ART, PERC APPROACH (08/12/15) EXTIRPATION OF MATTER FROM R POPL ART, PERC APPROACH (08/12/15) FLUOROSCOPY OF L LOW EXTREM ART USING L OSM CONTRAST (08/12/15) FLUOROSCOPY OF R LOW EXTREM ART USING L OSM CONTRAST (08/12/15) FLUOROSCOPY OF RIGHT JUGULAR VEINS, GUIDANCE (06/01/17) FREE SKIN GRAFT NEC (08/03/14) HEAD SOFT TISS X-RAY NEC (04/15/13) HEMODIALYSIS (04/28/15) INCIS W REM OF FORIEGN BODY OR DEV FROM SKIN & SUBCUT TISSUE (08/08/13) INSERT INFUSION DEV IN R INT JUGULAR VEIN, PERC (06/01/17) INSERTION OF INFUSION DEV INTO R SUBCLAV VEIN, PERC APPROACH (01/19/16) INSERTION OF INFUSION DEV INTO SUP VENA CAVA, PERC APPROACH (01/07/18) INSPECTION OF UPPER INTESTINAL TRACT, ENDO (03/03/17) INTRODUCE OF OTH THROMBOLYTIC INTO PERIPH ART, PERC APPROACH (08/12/15) LAPAROSCOPIC CHOLECYSTECTOMY (09/21/13) LOC EXC LES METATAR/TAR (06/01/14) PACKED CELL TRANSFUSION (06/01/14) PERCUTAN LIVER ASPIRAT (12/31/13) PERFORMANCE OF URINARY FILTRATION, MULTIPLE (05/17/17) PERFORMANCE OF URINARY FILTRATION, SINGLE (12/18/16) SKIN & SUBQ INCISION NEC (10/24/14) TETANUS TOXOID ADMINIST (06/13/14) TRANSFUSE NONAUT RED BLOOD CELLS IN PERIPH VEIN, PERC (04/09/17) ULTRASONOGRAPHY OF RIGHT AND LEFT HEART (04/09/17) ULTRASONOGRAPHY OF SUPERIOR VENA CAVA, GUIDANCE (01/07/18) VENOUS CATHETERIZATION FOR RENAL DIALYSIS (08/08/13) VENOUS CATHETERIZATION NEC (04/30/13) Family History: States: No Known Family Hx - Social History Hx Tobacco Use: No Hx Alcohol Use: Yes Hx Substance Use: No - Immunization History Hx Tetanus Toxoid Vaccination: Yes Hx Influenza Vaccination: Yes Hx Pneumococcal Vaccination: Yes Review Of Systems Constitutional: Negative for: Fever, Chills Cardiovascular: Positive for: Chest Pain Respiratory: Positive for: Shortness of Breath. Negative for: Cough Gastrointestinal: Negative for: Nausea, Vomiting Skin: Negative for: Rash Physical Exam - Physical Exam Appears: Non-toxic, No Acute Distress, Chronically Ill Skin: Warm, Dry, No Rash Head: Atraumatic, Normacephalic Eye(s): bilateral: Normal Inspection (blind) Oral Mucosa: Moist Neck: Normal ROM, Supple Chest: Symmetrical Cardiovascular: Rhythm Regular, No Friction Rub Respiratory: Normal Breath Sounds, No Rales, No Rhonchi, No Wheezing Gastrointestinal/Abdominal: Soft, No Tenderness, No Guarding, No Rebound Extremity: Other (bilateral BKA) Neurological/Psych: Oriented x3, Normal Speech ED Course And Treatment - Laboratory Results Result Diagrams: 08/05/18 13:01 08/05/18 13:01 O2 Sat by Pulse Oximetry: 99 (RA) Pulse Ox Interpretation: Normal Medical Decision Making Medical Decision Making: Plan: ECG, Morphine, Benadryl Patient found to have O2 sat of 88-90 and was placed on 3L NC and has improved slightly. The case was discussed with Dr. Li (PMD) who agrees to admit the patient. Disposition - Disposition Disposition: HOSPITALIZED Disposition Time: 14:34 Condition: FAIR - Clinical Impression Clinical Impression: Dyspnea, Chest pain - PA / EXPORT SPECIALIST / Resident Statement MD/DO has reviewed & agrees with the documentation as recorded. - Scribe Statement The provider has reviewed the documentation as recorded by the Marlonibrigoberto Tsai All medical record entries made by the Fabiola were at my direction and personally dictated by me. I have reviewed the chart and agree that the record accurately reflects my personal performance of the history, physical exam, medical decision making, and the department course for this patient. I have also personally directed, reviewed, and agree with the discharge instructions and disposition.
[2018-08-05] MEDS ORDERED: Morphine 4 MG/ML VIAL ONE (14:41)
[2018-08-05] MEDS ORDERED: DiphenhydrAMINE 50 mg/ml Inj IVP STA (15:30)
[2018-08-05] MEDS ORDERED: DiphenhydrAMINE 50 mg/ml Inj ONE (15:40)
[2018-08-05] MEDS ORDERED: Ergocalciferol 50,000 Intl Units Cap PO SCH (19:45)
[2018-08-06] MEDS: (Lantus) Insulin Glargine, Recombinant SC SCH ×2 (00:30→21:24)
[2018-08-06] MEDS: (Novolin R) Insulin Human Regular 100 units/ml vial SC SCH ×5 (00:31→21:26)
[2018-08-06] MEDS: Albuterol-Ipratrop 3 mg / 0.5 (3 ml) UD IH SCH ×6 (01:03→23:41)
[2018-08-06] MEDS: Multivitamin Vitamin B Complex (Nephro-Vite) Tab PO SCH (09:14)
[2018-08-06] MEDS: Ranolazine 500 mg Extended Release Tablets PO SCH ×2 (09:15→18:00)
[2018-08-06] MEDS: Insulin Detemir 100 units/ml Vial (Levemir) SC SCH (09:15)
[2018-08-06] MEDS ORDERED: Pantoprazole 20 mg EC Tab PO SCH (10:00)
--- NOTE | 2018-08-06 11:47 | CARD ---
APPROVED REPORT Date of service: 08/05/2018 EKG Measurement Heart [id number] <Conclusion> Normal sinus rhythm Possible Left atrial enlargement Left ventricular hypertrophy with repolarization abnormality Abnormal ECG
[2018-08-06] MEDS: HYDROmorphone 1 mg/ml ISec IVP PRN ×2 (13:43→20:19)
--- NOTE | 2018-08-06 13:46 | CP.PCM.HP ---
History of Present Illness - History of Present Illness History of Present Illness: PT CAME TO ED C/O OF SOB CHEST PAIN Present on Admission - Present on Admission Any Indicators Present on Admission: Yes Review of Systems - Review of Systems Systems not reviewed;Unavailable: Acuity of Condition - Constitutional Constitutional: Fatigue - EENT Eyes: Blind Spots Ears: As Per HPI Nose/Mouth/Throat: As Per HPI - Cardiovascular Cardiovascular: Chest Pain at Rest, Dyspnea - Respiratory Respiratory: Cough, Dyspnea, Dyspnea on Exertion, Chest Congestion - Gastrointestinal Gastrointestinal: As Per HPI - Genitourinary Genitourinary: As Per HPI - 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 - Musculoskeletal Additional comments: BILATERAL AMPUTATION - Integumentary Integumentary: As Per HPI - Neurological Neurological: Paresthesias - Psychiatric Psychiatric: Depression - Endocrine Additional Comments: DMID - Hematologic/Lymphatic Hematologic: As Per HPI Past Patient History - Infectious Disease Hx of Infectious Diseases: None - Tetanus Immunizations Tetanus Immunization: >10 years Ago - Past Medical History & Family History Past Medical History?: Yes - Past Social History Smoking Status: Unknown If Ever Smoked - CARDIAC Hx Cardiac Disorders: Yes Hx Atrial Fibrillation: Yes Hx Cardia Arrhythmia: Yes Hx Congestive Heart Failure: Yes Hx Hypercholesterolemia: Yes Hx Hypertension: Yes - PULMONARY Hx Respiratory Disorders: Yes Hx Asthma: Yes Hx Bronchitis: Yes Hx Chronic Obstructive Pulmonary Disease (COPD): Yes Hx Pneumonia: Yes - NEUROLOGICAL Hx Neurological Disorder: Yes Hx Alzheimer's Disease: Yes Hx Seizures: Yes - HEENT Hx HEENT Problems: Yes Hx Blind: Yes Hx Cataracts: Yes - RENAL Hx Chronic Kidney Disease: Yes - ENDOCRINE/METABOLIC Hx Endocrine Disorders: Yes Hx Hypothyroidism: Yes - HEMATOLOGICAL/ONCOLOGICAL Hx Blood Disorders: Yes Hx Anemia: Yes - INTEGUMENTARY Hx Dermatological Problems: No - MUSCULOSKELETAL/RHEUMATOLOGICAL Hx Musculoskeletal Disorders: Yes Hx Arthritis: Yes Hx Falls: No - GASTROINTESTINAL Hx Gastrointestinal Disorders: Yes Hx Gall Bladder Disease: Yes Hx Gastritis: Yes - GENITOURINARY/GYNECOLOGICAL Hx Genitourinary Disorders: No Hx Sexually Transmitted Disorders: No - PSYCHIATRIC Hx Psychophysiologic Disorder: Yes Hx Anxiety: Yes Hx Depression: Yes Hx Substance Use: No - SURGICAL HISTORY Hx Surgeries: Yes Hx Cholecystectomy: Yes (2011) 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/2009) Hx Coronary Stent: Yes - ANESTHESIA Hx Anesthesia: Yes Hx Anesthesia Reactions: No Hx Malignant Hyperthermia: No Meds Allergies/Adverse Reactions: Allergies Allergy/AdvReac Type Severity Reaction Status Date / Time acetaminophen [From Percocet] Allergy RASH Verified 08/05/18 12:28 atenolol Allergy RASH Verified 08/05/18 12:28 digoxin Allergy RASH Verified 08/05/18 12:28 milk Allergy ITCHING Verified 08/05/18 12:28 morphine Allergy RASH Verified 08/05/18 12:28 oxycodone HCl [From Percocet] Allergy RASH Verified 08/05/18 12:28 Physical Exam - Constitutional Appears: In Acute Distress - Head Exam Head Exam: ATRAUMATIC - Eye Exam Eye Exam: Conjunctival injection - ENT Exam ENT Exam: Mucous Membranes Dry - Neck Exam Neck exam: Positive for: Full Rom - Respiratory Exam Respiratory Exam: Decreased Breath Sounds, Prolonged Expiratory Phase - Cardiovascular Exam Cardiovascular Exam: REGULAR RHYTHM - GI/Abdominal Exam GI & Abdominal Exam: Normal Bowel Sounds - Extremities Exam Additional comments: BILATERAL AMPUTATION - Back Exam Back exam: NORMAL INSPECTION - Psychiatric Exam Psychiatric exam: Flat Affect Results - Vital Signs Recent Vital Signs: Last Vital Signs Temp 97.6 F 08/06/18 07:40 Pulse 56 L 08/06/18 13:00 Resp 20 08/06/18 07:40 BP 152/74 H 08/06/18 09:14 Pulse Ox 98 08/06/18 07:40 - Labs Result Diagrams: 08/05/18 13:01 08/05/18 13:01 Labs: Laboratory Results - last 24 hr 08/05/18 08/06/18 08/06/18 13:01 01:28 06:17 Sodium 139 Potassium 5.5 H Chloride 100 Carbon Dioxide 22 Anion Gap 23 H BUN 58 H Creatinine 6.7 H Est GFR ( Amer) 11 Est GFR (Non-Af Amer) 9 POC Glucose (mg/dL) 144 H 160 H Random Glucose 192 H Calcium 9.0 Total Bilirubin 0.6 AST 18 ALT 13 L D Alkaline Phosphatase 239 H Total Protein 7.8 Albumin 4.4 Globulin 3.4 Albumin/Globulin Ratio 1.3 08/06/18 11:17 Sodium Potassium Chloride Carbon Dioxide Anion Gap BUN Creatinine Est GFR ( Amer) Est GFR (Non-Af Amer) POC Glucose (mg/dL) 191 H Random Glucose Calcium Total Bilirubin AST ALT Alkaline Phosphatase Total Protein Albumin Globulin Albumin/Globulin Ratio Assessment & Plan - Assessment and Plan (Free Text) Assessment: ACCF CAD CHEST PAIN DMID ESRF ON DIALYSIS Plan: ADMIT START DIALYSIS AND MED - Date & Time Date: 08/06/18 Time: 13:48
--- NOTE | 2018-08-06 15:54 | CP.PCM.CON ---
History of Present Illness - History of Present Illness History of Present Illness: Nephrology Consultation Note: Assessment:Stable Pulmonary congestion , fluid overload, HTN emergency chronic chest pain, A flutter Diabetic chronic Kidney Disease (E11.22) Hypertensive Chronic Kidney Disease (I12.0) End stage renal disease (N18.6) dependence on hemodialysis (Z99.2) (TTS) via AVF Anemia (D64.9), Hyperphosphatemia (E83.39), Secondary Hyperparathyroidism (E21.1), HTN (I12.0) CAD s/p CABG, diastolic CHF, parox A flutter/fib, intra-cardiac thrombus, hx of Heparin induced thrombocytopenia, hx of seizure, blindness Plan: no acute need for dialysis today. plan for dialysis as per TTS schedule Continue with Nephrovite 1 tab/day. on HANNAH with HD . PRBC As needed for anemia, last Hb 11 Continue with phos binders home dose BP control with meds as ordered. on ARB as losartan Glycemic control, Dialysis consistent diet Further work up/management as per primary team Dose meds/antibiotics for ESRD status. Avoid fleets enema/magnesium based laxatives. Thanks for allowing me to participate in care of your patient. Will follow patient with you. Please call if any Qs. had d/w team Dr Eric Temple Office: [phone] CC: SOB reason for consult: ESRD HPI: Pt is a 38 y/o transgender with hx of ESRD on hemodialysis (TTS) via permacath, chronic anemia, hyperphosphatemia, secondary hyperparathyroidism, Diabetes Mellitus, hypertension, CAD s/p CABG, diastolic CHF, pA flutter/fib, intra-cardiac thrombus, Heparin induced thrombocytopenia in past presented with complaints of SOB and chronic chest pain x 1 day. pt with recurrent and frequent hospitalizations for same complaints. ROS: All other negative except as in HPI. has chronic chest pain, improved SOB Physical Examination: General Appearance: in no acute respiratory distress, co-operative Vitals reviewed and noted as below Head; Atraumatic, normocephalic ENT: no ulcers no thrush. Tongue is midline. Oropharynx: no rash or ulcers. EYES: Pt is blind both eyes Neck; supple no lymphadenopathy, no thyromegaly or bruit Lungs: normal respiratory rate/effort. Breath sounds bilateral clear Heart: Normal rate. s1s2 normal. No rub or gallop. Extremities: no edema. No varicose veins. has b/l BKA. Neurological: Patient is awake follow commands no focal deficit Skin: Warm and dry. Normal turgor. No rash. Palpitation: Normal elasticity for age Abdomen: Abdomen is soft. Bowel sounds +. There is no abdominal tenderness, no guarding/rigidity or organomegaly Psych: limited insight and has normal affect/mood MSK: no joint tenderness or swelling. Digits and nails normal, no deformity : kidney or bladder not palpable Access: permacath Labs/imaging reviewed. Past medical history, past surgical history, family history, social history, allergy reviewed and noted as below Family Hx: no hx of CKD. Non contributory Past Patient History - Infectious Disease Hx of Infectious Diseases: None - Tetanus Immunizations Tetanus Immunization: >10 years Ago - Past Medical History & Family History Past Medical History?: Yes - Past Social History Smoking Status: Unknown If Ever Smoked - CARDIAC Hx Cardiac Disorders: Yes Hx Atrial Fibrillation: Yes Hx Cardia Arrhythmia: Yes Hx Congestive Heart Failure: Yes Hx Hypercholesterolemia: Yes Hx Hypertension: Yes - PULMONARY Hx Respiratory Disorders: Yes Hx Asthma: Yes Hx Bronchitis: Yes Hx Chronic Obstructive Pulmonary Disease (COPD): Yes Hx Pneumonia: Yes - NEUROLOGICAL Hx Neurological Disorder: Yes Hx Alzheimer's Disease: Yes Hx Seizures: Yes - HEENT Hx HEENT Problems: Yes Hx Blind: Yes Hx Cataracts: Yes - RENAL Hx Chronic Kidney Disease: Yes - ENDOCRINE/METABOLIC Hx Endocrine Disorders: Yes Hx Hypothyroidism: Yes - HEMATOLOGICAL/ONCOLOGICAL Hx Blood Disorders: Yes Hx Anemia: Yes - INTEGUMENTARY Hx Dermatological Problems: No - MUSCULOSKELETAL/RHEUMATOLOGICAL Hx Musculoskeletal Disorders: Yes Hx Arthritis: Yes Hx Falls: No - GASTROINTESTINAL Hx Gastrointestinal Disorders: Yes Hx Gall Bladder Disease: Yes Hx Gastritis: Yes - GENITOURINARY/GYNECOLOGICAL Hx Genitourinary Disorders: No Hx Sexually Transmitted Disorders: No - PSYCHIATRIC Hx Psychophysiologic Disorder: Yes Hx Anxiety: Yes Hx Depression: Yes Hx Substance Use: No - SURGICAL HISTORY Hx Surgeries: Yes Hx Cholecystectomy: Yes (2011) 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/2009) Hx Coronary Stent: Yes - ANESTHESIA Hx Anesthesia: Yes Hx Anesthesia Reactions: No Hx Malignant Hyperthermia: No Meds Allergies/Adverse Reactions: Allergies Allergy/AdvReac Type Severity Reaction Status Date / Time acetaminophen [From Percocet] Allergy RASH Verified 08/05/18 12:28 atenolol Allergy RASH Verified 08/05/18 12:28 digoxin Allergy RASH Verified 08/05/18 12:28 milk Allergy ITCHING Verified 08/05/18 12:28 morphine Allergy RASH Verified 08/05/18 12:28 oxycodone HCl [From Percocet] Allergy RASH Verified 08/05/18 12:28 - Medications Medications: Current Medications Albuterol/Ipratropium (Duoneb 3 Mg/0.5 Mg (3 Ml) Ud) 3 ml IH RQ4 [facility] Amiodarone HCl (Cordarone) 200 mg PO DAILY [facility] Last Admin: 08/06/18 09:14 Dose: 200 mg Amlodipine Besylate (Norvasc) 10 mg PO DAILY [facility] Last Admin: 08/06/18 09:15 Dose: 10 mg Apixaban (Eliquis) 2.5 mg PO BID [facility] Last Admin: 08/06/18 09:14 Dose: 2.5 mg Aspirin (Aspirin Chewable) 81 mg PO DAILY [facility] Last Admin: 08/06/18 09:15 Dose: 81 mg Calcitriol (Rocaltrol) 0.25 mcg PO TTS [facility] Calcium Carbonate (Oscal) 500 mg PO BID [facility] Last Admin: 08/06/18 09:15 Dose: 500 mg Carvedilol (Coreg) 12.5 mg PO BID [facility] Last Admin: 08/06/18 09:14 Dose: 12.5 mg Clopidogrel Bisulfate (Plavix) 75 mg PO DAILY [facility] Last Admin: 08/06/18 09:15 Dose: 75 mg Diltiazem HCl (Cardizem) 30 mg PO QID [facility] Last Admin: 08/06/18 13:42 Dose: Not Given Docusate Sodium (Colace) 100 mg PO PRN PRN PRN Reason: Constipation Epoetin Tom (Procrit) 4,000 unit IV TTS [facility] Ergocalciferol (Drisdol 50,000 Intl Units Cap) 1 cap PO Q7D [facility] Hydromorphone HCl (Dilaudid) 2 mg PO Q6H PRN PRN Reason: Pain, severe (8-10) Last Admin: 08/05/18 23:57 Dose: 2 mg Hydromorphone HCl (Dilaudid) 1 mg IVP Q6H PRN PRN Reason: Pain, severe (8-10) Last Admin: 12/05/18 13:43 Dose: 1 mg Insulin Detemir (Levemir) 22 unit SC DAILY [facility] Last Admin: 08/06/18 09:15 Dose: 22 units Insulin Glargine (Lantus) 8 unit SC HS [facility] Last Admin: 08/06/18 00:30 Dose: Not Given Insulin Human Regular (Novolin R) 0 unit SC [facility]; Protocol Last Admin: 08/06/18 12:30 Dose: 1 units Isosorbide Mononitrate (Imdur) 60 mg PO DAILY [facility] Last Admin: 08/06/18 09:14 Dose: 60 mg Levetiracetam (Keppra) 500 mg PO BID [facility] Last Admin: 08/06/18 09:14 Dose: 500 mg Losartan Potassium (Cozaar) 100 mg PO DAILY [facility] Last Admin: 08/06/18 09:15 Dose: 100 mg Montelukast Sodium (Singulair) 10 mg PO DAILY [facility] Last Admin: 08/06/18 09:15 Dose: 10 mg Pantoprazole Sodium (Protonix Ec Tab) 20 mg PO DAILY [facility] Last Admin: 08/06/18 09:15 Dose: 20 mg Ranolazine (Ranexa) 500 mg PO BID [facility] Last Admin: 08/06/18 09:15 Dose: 500 mg Rosuvastatin Calcium (Crestor) 10 mg PO HS [facility] Last Admin: 08/05/18 23:56 Dose: 10 mg Sertraline HCl (Zoloft) 50 mg PO DAILY [facility] Last Admin: 08/06/18 09:14 Dose: 50 mg Tramadol HCl (Ultram) 50 mg PO Q6 PRN PRN Reason: Pain, moderate (4-7) Last Admin: 08/06/18 04:08 Dose: 50 mg Valproate Sodium (Depakene Cap) 250 mg PO QID [facility] Last Admin: 08/06/18 13:43 Dose: 250 mg Vitamin B Complex/Vit C/Folic Acid (Nephro-Courtney) 1 tab PO 0800 [facility] Last Admin: 08/06/18 09:14 Dose: 1 tab Results - Vital Signs Recent Vital Signs: Last Vital Signs Temp 97.6 F 08/06/18 07:40 Pulse 56 L 08/06/18 13:00 Resp 20 08/06/18 07:40 BP 152/74 H 08/06/18 09:14 Pulse Ox 98 08/06/18 07:40 - Labs Result Diagrams: 08/05/18 13:01 08/05/18 13:01 Labs: Laboratory Results - last 24 hr 08/06/18 08/06/18 08/06/18 01:28 06:17 11:17 POC Glucose (mg/dL) 144 H 160 H 191 H
[2018-08-07] MEDS: HYDROmorphone 1 mg/ml ISec IVP PRN ×4 (02:29→22:05)
[2018-08-07] MEDS: Albuterol-Ipratrop 3 mg / 0.5 (3 ml) UD IH SCH ×5 (03:27→21:42)
[2018-08-07] MEDS: (Novolin R) Insulin Human Regular 100 units/ml vial SC SCH ×3 (08:24→22:31)
[2018-08-07] MEDS: Ranolazine 500 mg Extended Release Tablets PO SCH ×2 (09:03→17:39)
[2018-08-07] MEDS: Multivitamin Vitamin B Complex (Nephro-Vite) Tab PO SCH (09:04)
[2018-08-07] MEDS: Insulin Detemir 100 units/ml Vial (Levemir) SC SCH (11:00)
[2018-08-07] MEDS: EPOETIN ALFA 4,000 UNIT/ML ML Dialysis IV SCH (11:56)
--- NOTE | 2018-08-07 15:01 | CP.PCM.PN ---
Subjective - Date & Time of Evaluation Date of Evaluation: 08/07/18 Time of Evaluation: 15:01 - Subjective Subjective: Nephrology Consultation Note: Assessment:Stable Pulmonary congestion , fluid overload, HTN emergency chronic chest pain, A flutter Diabetic chronic Kidney Disease (E11.22) Hypertensive Chronic Kidney Disease (I12.0) End stage renal disease (N18.6) dependence on hemodialysis (Z99.2) (TTS) via AVF Anemia (D64.9), Hyperphosphatemia (E83.39), Secondary Hyperparathyroidism (E21.1), HTN (I12.0) CAD s/p CABG, diastolic CHF, parox A flutter/fib, intra-cardiac thrombus, hx of Heparin induced thrombocytopenia, hx of seizure, blindness Plan: plan for dialysis as per TTS schedule Continue with Nephrovite 1 tab/day. not on HANNAH with HD . PRBC As needed for anemia, last Hb 11 Continue with phos binders home dose BP control with meds as ordered. on ARB as losartan Glycemic control, Dialysis consistent diet Further work up/management as per primary team Dose meds/antibiotics for ESRD status. Avoid fleets enema/magnesium based laxatives. Thanks for allowing me to participate in care of your patient. Will follow patient with you. Please call if any Qs. had d/w team Dr Eric Tempel Office: [phone] CC: SOB reason for consult: ESRD HPI: Pt is a 38 y/o transgender with hx of ESRD on hemodialysis (TTS) via permacath, chronic anemia, hyperphosphatemia, secondary hyperparathyroidism, Diabetes Mellitus, hypertension, CAD s/p CABG, diastolic CHF, pA flutter/fib, intra-cardiac thrombus, Heparin induced thrombocytopenia in past presented with complaints of SOB and chronic chest pain x 1 day. pt with recurrent and frequent hospitalizations for same complaints. ROS: All other negative except as in HPI. has chronic chest pain, improved SOB Physical Examination: seen on HD General Appearance: in no acute respiratory distress, co-operative Vitals reviewed and noted as below Head; Atraumatic, normocephalic ENT: no ulcers no thrush. Tongue is midline. Oropharynx: no rash or ulcers. EYES: Pt is blind both eyes Neck; supple no lymphadenopathy, no thyromegaly or bruit Lungs: normal respiratory rate/effort. Breath sounds bilateral clear Heart: Normal rate. s1s2 normal. No rub or gallop. Extremities: no edema. No varicose veins. has b/l BKA. Neurological: Patient is awake follow commands no focal deficit Skin: Warm and dry. Normal turgor. No rash. Palpitation: Normal elasticity for age Abdomen: Abdomen is soft. Bowel sounds +. There is no abdominal tenderness, no guarding/rigidity or organomegaly Psych: limited insight and has normal affect/mood MSK: no joint tenderness or swelling. Digits and nails normal, no deformity : kidney or bladder not palpable Access: permacath Labs/imaging reviewed. Past medical history, past surgical history, family history, social history, allergy reviewed and noted as below Family Hx: no hx of CKD. Non contributory Objective - Vital Signs/Intake and Output Vital Signs (last 24 hours): Temp Pulse Resp BP Pulse Ox 97.8 F 60 16 99/61 L 100 08/07/18 10:10 08/07/18 10:10 08/07/18 13:40 08/07/18 13:40 08/07/18 13:40 Intake and Output: 08/07/18 08/07/18 06:59 18:59 Intake Total 600 Balance 600 - Medications Medications: Current Medications Albuterol/Ipratropium (Duoneb 3 Mg/0.5 Mg (3 Ml) Ud) 3 ml IH RQ4 [facility] Last Admin: 08/07/18 07:21 Dose: 3 ml Amiodarone HCl (Cordarone) 200 mg PO DAILY [facility] Last Admin: 08/07/18 09:04 Dose: 200 mg Amlodipine Besylate (Norvasc) 10 mg PO DAILY [facility] Last Admin: 08/07/18 09:06 Dose: Not Given Apixaban (Eliquis) 2.5 mg PO BID [facility] Last Admin: 08/07/18 09:03 Dose: 2.5 mg Aspirin (Aspirin Chewable) 81 mg PO DAILY [facility] Last Admin: 08/07/18 09:03 Dose: 81 mg Calcitriol (Rocaltrol) 0.25 mcg PO TTS [facility] Last Admin: 08/07/18 09:08 Dose: 0.25 mcg Calcium Carbonate (Oscal) 500 mg PO BID [facility] Last Admin: 08/07/18 09:03 Dose: 500 mg Carvedilol (Coreg) 12.5 mg PO BID [facility] Last Admin: 08/07/18 09:05 Dose: Not Given Clopidogrel Bisulfate (Plavix) 75 mg PO DAILY [facility] Last Admin: 08/07/18 09:03 Dose: 75 mg Diltiazem HCl (Cardizem) 30 mg PO QID [facility] Last Admin: 08/07/18 14:02 Dose: Not Given Docusate Sodium (Colace) 100 mg PO TID PRN Epoetin Tom (Procrit) 4,000 unit IV TTS [facility] Last Admin: 08/07/18 11:56 Dose: 4,000 unit Ergocalciferol (Drisdol 50,000 Intl Units Cap) 1 cap PO Q7D [facility] Famotidine (Pepcid) 20 mg PO DAILY [facility] Last Admin: 08/07/18 09:08 Dose: 20 mg Heparin Sodium (Porcine) (Heparin) 3,700 units IVP TTS [facility] Last Admin: 08/07/18 12:02 Dose: 3,700 units Hydromorphone HCl (Dilaudid) 1 mg IVP Q6H PRN PRN Reason: Pain, severe (8-10) Last Admin: 08/07/18 09:04 Dose: 1 mg Insulin Detemir (Levemir) 22 unit SC DAILY [facility] Last Admin: 08/07/18 11:00 Dose: Not Given Insulin Glargine (Lantus) 8 unit SC HS [facility] Last Admin: 08/06/18 21:24 Dose: 8 units Insulin Human Regular (Novolin R) 0 unit SC [facility]; Protocol Last Admin: 08/07/18 12:37 Dose: Not Given Isosorbide Mononitrate (Imdur) 60 mg PO DAILY [facility] Last Admin: 08/07/18 09:05 Dose: Not Given Levetiracetam (Keppra) 500 mg PO BID [facility] Last Admin: 08/07/18 09:04 Dose: 500 mg Losartan Potassium (Cozaar) 100 mg PO DAILY [facility] Last Admin: 08/07/18 09:05 Dose: Not Given Montelukast Sodium (Singulair) 10 mg PO DAILY [facility] Last Admin: 08/07/18 09:03 Dose: 10 mg Ranolazine (Ranexa) 500 mg PO BID [facility] Last Admin: 08/07/18 09:03 Dose: 500 mg Rosuvastatin Calcium (Crestor) 10 mg PO HS [facility] Last Admin: 08/06/18 21:24 Dose: 10 mg Sertraline HCl (Zoloft) 50 mg PO DAILY [facility] Last Admin: 08/07/18 09:04 Dose: 50 mg Tramadol HCl (Ultram) 50 mg PO Q6 PRN PRN Reason: Pain, moderate (4-7) Last Admin: 08/06/18 04:08 Dose: 50 mg Valproate Sodium (Depakene Cap) 250 mg PO QID [facility] Last Admin: 08/07/18 14:47 Dose: 250 mg Vitamin B Complex/Vit C/Folic Acid (Nephro-Courtney) 1 tab PO 0800 [facility] Last Admin: 08/07/18 09:04 Dose: 1 tab - Labs Labs: 08/05/18 13:01 08/05/18 13:01 PT 13.5 SECONDS (9.7-12.2) H 08/05/18 13:01 INR 1.2 08/05/18 13:01 APTT 37 SECONDS (21-34) H 08/05/18 13:01
--- NOTE | 2018-08-07 19:22 | CP.PCM.PN ---
Subjective - Date & Time of Evaluation Date of Evaluation: 08/07/18 Time of Evaluation: 19:19 - Subjective Subjective: pt still c/o of sob had dialysis [facility] Objective - Vital Signs/Intake and Output Vital Signs (last 24 hours): Temp Pulse Resp BP Pulse Ox 98.7 F 62 18 122/74 99 08/07/18 17:14 08/07/18 17:14 08/07/18 17:14 08/07/18 17:40 08/07/18 17:14 Intake and Output: 08/07/18 08/08/18 18:59 06:59 Intake Total 600 Balance 600 - Medications Medications: Current Medications Albuterol/Ipratropium (Duoneb 3 Mg/0.5 Mg (3 Ml) Ud) 3 ml IH RQ4 [facility] Last Admin: 08/07/18 11:55 Dose: Not Given Amiodarone HCl (Cordarone) 200 mg PO DAILY [facility] Last Admin: 08/07/18 09:04 Dose: 200 mg Amlodipine Besylate (Norvasc) 10 mg PO DAILY [facility] Last Admin: 08/07/18 09:06 Dose: Not Given Apixaban (Eliquis) 2.5 mg PO BID [facility] Last Admin: 08/07/18 17:39 Dose: 2.5 mg Aspirin (Aspirin Chewable) 81 mg PO DAILY [facility] Last Admin: 08/07/18 09:03 Dose: 81 mg Calcitriol (Rocaltrol) 0.25 mcg PO TTS [facility] Last Admin: 08/07/18 09:08 Dose: 0.25 mcg Calcium Carbonate (Oscal) 500 mg PO BID [facility] Last Admin: 08/07/18 17:39 Dose: 500 mg Carvedilol (Coreg) 12.5 mg PO BID [facility] Last Admin: 08/07/18 17:40 Dose: 12.5 mg Clopidogrel Bisulfate (Plavix) 75 mg PO DAILY [facility] Last Admin: 08/07/18 09:03 Dose: 75 mg Diltiazem HCl (Cardizem) 30 mg PO QID [facility] Last Admin: 08/07/18 17:39 Dose: 30 mg Docusate Sodium (Colace) 100 mg PO TID PRN Epoetin Tom (Procrit) 4,000 unit IV TTS [facility] Last Admin: 08/07/18 11:56 Dose: 4,000 unit Ergocalciferol (Drisdol 50,000 Intl Units Cap) 1 cap PO Q7D [facility] Famotidine (Pepcid) 20 mg PO DAILY [facility] Last Admin: 08/07/18 09:08 Dose: 20 mg Heparin Sodium (Porcine) (Heparin) 3,700 units IVP TTS [facility] Last Admin: 08/07/18 12:02 Dose: 3,700 units Hydromorphone HCl (Dilaudid) 1 mg IVP Q6H PRN PRN Reason: Pain, severe (8-10) Last Admin: 08/07/18 16:03 Dose: 1 mg Insulin Detemir (Levemir) 22 unit SC DAILY [facility] Last Admin: 08/07/18 11:00 Dose: Not Given Insulin Glargine (Lantus) 8 unit SC [facility] Last Admin: 08/06/18 21:24 Dose: 8 units Insulin Human Regular (Novolin R) 0 unit SC [facility]; Protocol Last Admin: 08/07/18 12:37 Dose: Not Given Isosorbide Mononitrate (Imdur) 60 mg PO DAILY [facility] Last Admin: 08/07/18 09:05 Dose: Not Given Levetiracetam (Keppra) 500 mg PO BID [facility] Last Admin: 08/07/18 17:39 Dose: 500 mg Losartan Potassium (Cozaar) 100 mg PO DAILY [facility] Last Admin: 08/07/18 09:05 Dose: Not Given Montelukast Sodium (Singulair) 10 mg PO DAILY [facility] Last Admin: 08/07/18 09:03 Dose: 10 mg Ranolazine (Ranexa) 500 mg PO BID [facility] Last Admin: 08/07/18 17:39 Dose: 500 mg Rosuvastatin Calcium (Crestor) 10 mg PO [facility] Last Admin: 08/06/18 21:24 Dose: 10 mg Sertraline HCl (Zoloft) 50 mg PO DAILY [facility] Last Admin: 08/07/18 09:04 Dose: 50 mg Tramadol HCl (Ultram) 50 mg PO Q6 PRN PRN Reason: Pain, moderate (4-7) Last Admin: 08/06/18 04:08 Dose: 50 mg Valproate Sodium (Depakene Cap) 250 mg PO QID [facility] Last Admin: 08/07/18 17:39 Dose: 250 mg Vitamin B Complex/Vit C/Folic Acid (Nephro-Courtney) 1 tab PO 0800 [facility] Last Admin: 08/07/18 09:04 Dose: 1 tab - Labs Labs: 08/05/18 13:01 08/05/18 13:01 PT 13.5 SECONDS (9.7-12.2) H 08/05/18 13:01 INR 1.2 08/05/18 13:01 APTT 37 SECONDS (21-34) H 08/05/18 13:01 - Constitutional Appears: Non-toxic - Head Exam Head Exam: ATRAUMATIC - Eye Exam Eye Exam: Conjunctival injection - ENT Exam ENT Exam: Mucous Membranes Moist - Neck Exam Neck Exam: Full ROM - Respiratory Exam Respiratory Exam: Decreased Breath Sounds, Clear to Ausculation Bilateral - Cardiovascular Exam Cardiovascular Exam: REGULAR RHYTHM - GI/Abdominal Exam GI & Abdominal Exam: Normal Bowel Sounds - Back Exam Back Exam: CVA tenderness (L) - Neurological Exam Neurological Exam: Altered, Awake, Oriented x3 - Psychiatric Exam Psychiatric exam: Depressed - Skin Skin Exam: Pallor Assessment and Plan - Assessment and Plan (Free Text) Assessment: sob chf copd cad esrf dmid cont curent treatment Plan: as ordere
[2018-08-07] MEDS: (Lantus) Insulin Glargine, Recombinant SC SCH (21:44)
[2018-08-08] MEDS: Albuterol-Ipratrop 3 mg / 0.5 (3 ml) UD IH SCH ×6 (00:33→19:30)
[2018-08-08] MEDS: HYDROmorphone 1 mg/ml ISec IVP PRN ×2 (04:54→11:39)
[2018-08-08] MEDS: (Novolin R) Insulin Human Regular 100 units/ml vial SC SCH ×5 (07:30→22:44)
[2018-08-08] MEDS: Multivitamin Vitamin B Complex (Nephro-Vite) Tab PO SCH (10:11)
[2018-08-08] MEDS: Ranolazine 500 mg Extended Release Tablets PO SCH ×2 (10:11→17:45)
--- NOTE | 2018-08-08 10:30 | CP.PCM.PN ---
Subjective - Date & Time of Evaluation Date of Evaluation: 08/08/18 Time of Evaluation: 10:27 - Subjective Subjective: has been vomiting alot this morning abd pain Objective - Vital Signs/Intake and Output Vital Signs (last 24 hours): Temp Pulse Resp BP Pulse Ox 98.8 F 65 20 104/64 99 08/08/18 07:10 08/08/18 08:20 08/08/18 07:10 08/08/18 10:12 08/08/18 07:10 Intake and Output: 08/08/18 08/08/18 06:59 18:59 Intake Total 300 Balance 300 - Medications Medications: Current Medications Albuterol/Ipratropium (Duoneb 3 Mg/0.5 Mg (3 Ml) Ud) 3 ml IH RQ4 [facility] Last Admin: 08/08/18 07:50 Dose: 3 ml Amiodarone HCl (Cordarone) 200 mg PO DAILY [facility] Last Admin: 08/08/18 10:11 Dose: 200 mg Amlodipine Besylate (Norvasc) 10 mg PO DAILY [facility] Last Admin: 08/08/18 10:15 Dose: Not Given Apixaban (Eliquis) 2.5 mg PO BID [facility] Last Admin: 08/08/18 10:11 Dose: 2.5 mg Aspirin (Aspirin Chewable) 81 mg PO DAILY [facility] Last Admin: 08/08/18 10:11 Dose: 81 mg Calcitriol (Rocaltrol) 0.25 mcg PO TTS [facility] Last Admin: 08/07/18 09:08 Dose: 0.25 mcg Calcium Carbonate (Oscal) 500 mg PO BID [facility] Last Admin: 08/08/18 10:11 Dose: 500 mg Carvedilol (Coreg) 12.5 mg PO BID [facility] Last Admin: 08/08/18 10:12 Dose: Not Given Clopidogrel Bisulfate (Plavix) 75 mg PO DAILY [facility] Last Admin: 08/08/18 10:11 Dose: 75 mg Diltiazem HCl (Cardizem) 30 mg PO QID [facility] Last Admin: 08/08/18 10:12 Dose: Not Given Docusate Sodium (Colace) 100 mg PO TID PRN Last Admin: 08/08/18 10:11 Dose: 100 mg Epoetin Tom (Procrit) 4,000 unit IV TTS [facility] Last Admin: 08/07/18 11:56 Dose: 4,000 unit Ergocalciferol (Drisdol 50,000 Intl Units Cap) 1 cap PO Q7D [facility] Famotidine (Pepcid) 20 mg PO DAILY [facility] Last Admin: 08/08/18 10:11 Dose: 20 mg Heparin Sodium (Porcine) (Heparin) 3,700 units IVP TTS [facility] Last Admin: 08/07/18 12:02 Dose: 3,700 units Hydromorphone HCl (Dilaudid) 1 mg IVP Q6H PRN PRN Reason: Pain, severe (8-10) Last Admin: 08/08/18 04:54 Dose: 1 mg Insulin Detemir (Levemir) 22 unit SC DAILY [facility] Last Admin: 08/07/18 11:00 Dose: Not Given Insulin Glargine (Lantus) [address] [facility] Last Admin: 08/07/18 21:44 Dose: Not Given Insulin Human Regular (Novolin R) 0 unit SC [facility]; Protocol Last Admin: 08/08/18 07:30 Dose: Not Given Isosorbide Mononitrate (Imdur) 60 mg PO DAILY [facility] Last Admin: 08/08/18 10:15 Dose: Not Given Levetiracetam (Keppra) 500 mg PO BID [facility] Last Admin: 08/08/18 10:11 Dose: 500 mg Losartan Potassium (Cozaar) 100 mg PO DAILY [facility] Last Admin: 08/08/18 10:15 Dose: Not Given Montelukast Sodium (Singulair) 10 mg PO DAILY [facility] Last Admin: 08/08/18 10:11 Dose: 10 mg Ranolazine (Ranexa) 500 mg PO BID [facility] Last Admin: 08/08/18 10:11 Dose: 500 mg Rosuvastatin Calcium (Crestor) 10 mg PO HS [facility] Last Admin: 08/07/18 22:27 Dose: 10 mg Sertraline HCl (Zoloft) 50 mg PO DAILY [facility] Last Admin: 08/07/18 09:04 Dose: 50 mg Tramadol HCl (Ultram) 50 mg PO Q6 PRN PRN Reason: Pain, moderate (4-7) Last Admin: 08/06/18 04:08 Dose: 50 mg Valproate Sodium (Depakene Cap) 250 mg PO QID [facility] Last Admin: 08/08/18 10:23 Dose: 250 mg Vitamin B Complex/Vit C/Folic Acid (Nephro-Courtney) 1 tab PO 0800 [facility] Last Admin: 08/08/18 10:11 Dose: 1 tab - Labs Labs: 08/05/18 13:01 08/05/18 13:01 PT 13.5 SECONDS (9.7-12.2) H 08/05/18 13:01 INR 1.2 08/05/18 13:01 APTT 37 SECONDS (21-34) H 08/05/18 13:01 - Constitutional Appears: Non-toxic, In Acute Distress - Head Exam Head Exam: NORMAL INSPECTION - Eye Exam Eye Exam: Normal appearance Pupil Exam: NORMAL ACCOMODATION - ENT Exam ENT Exam: Normal Exam - Neck Exam Neck Exam: Full ROM - Respiratory Exam Respiratory Exam: Decreased Breath Sounds - Cardiovascular Exam Cardiovascular Exam: Irregular Rhythm - GI/Abdominal Exam GI & Abdominal Exam: Tenderness, Normal Bowel Sounds - Rectal Exam Rectal Exam: NORMAL INSPECTION - Back Exam Back Exam: CVA tenderness (L) - Neurological Exam Neurological Exam: Alert, Oriented x3 - Psychiatric Exam Psychiatric exam: Normal Mood - Skin Skin Exam: Pallor Assessment and Plan - Assessment and Plan (Free Text) Assessment: ac vomiting abd pain chf dmis esrf Plan: cont asper orders
[2018-08-08] MEDS ORDERED: Insulin Detemir 100 units/ml Vial (Levemir) SC SCH (10:43)
[2018-08-08] MEDS: Insulin Detemir 100 units/ml Vial (Levemir) SC SCH (10:56)
--- NOTE | 2018-08-08 14:07 | CP.PCM.PN ---
Subjective - Date & Time of Evaluation Date of Evaluation: 08/08/18 Time of Evaluation: 14:07 - Subjective Subjective: Nephrology Consultation Note: Assessment:Stable Pulmonary congestion , fluid overload, HTN emergency chronic chest pain, A flutter Diabetic chronic Kidney Disease (E11.22) Hypertensive Chronic Kidney Disease (I12.0) End stage renal disease (N18.6) dependence on hemodialysis (Z99.2) (TTS) via AVF Anemia (D64.9), Hyperphosphatemia (E83.39), Secondary Hyperparathyroidism (E21.1), HTN (I12.0) CAD s/p CABG, diastolic CHF, parox A flutter/fib, intra-cardiac thrombus, hx of Heparin induced thrombocytopenia, hx of seizure, blindness Plan: plan for dialysis as per TTS schedule Continue with Nephrovite 1 tab/day. not on HANNAH with HD . PRBC As needed for anemia, last Hb 11 Continue with phos binders home dose BP control with meds as ordered. on ARB as losartan Glycemic control, Dialysis consistent diet Further work up/management as per primary team Dose meds/antibiotics for ESRD status. Avoid fleets enema/magnesium based laxatives. Thanks for allowing me to participate in care of your patient. Will follow patient with you. Please call if any Qs. had d/w team Dr Eric Temple Office: [phone] CC: SOB reason for consult: ESRD HPI: Pt is a 38 y/o transgender with hx of ESRD on hemodialysis (TTS) via permacath, chronic anemia, hyperphosphatemia, secondary hyperparathyroidism, Diabetes Mellitus, hypertension, CAD s/p CABG, diastolic CHF, pA flutter/fib, intra-cardiac thrombus, Heparin induced thrombocytopenia in past presented with complaints of SOB and chronic chest pain x 1 day. pt with recurrent and frequent hospitalizations for same complaints. ROS: All other negative except as in HPI. has chronic chest pain, improved SOB Physical Examination: General Appearance: in no acute respiratory distress, co-operative Vitals reviewed and noted as below Head; Atraumatic, normocephalic ENT: no ulcers no thrush. Tongue is midline. Oropharynx: no rash or ulcers. EYES: Pt is blind both eyes Neck; supple no lymphadenopathy, no thyromegaly or bruit Lungs: normal respiratory rate/effort. Breath sounds bilateral clear Heart: Normal rate. s1s2 normal. No rub or gallop. Extremities: no edema. No varicose veins. has b/l BKA. Neurological: Patient is awake follow commands no focal deficit Skin: Warm and dry. Normal turgor. No rash. Palpitation: Normal elasticity for age Abdomen: Abdomen is soft. Bowel sounds +. There is no abdominal tenderness, no guarding/rigidity or organomegaly Psych: limited insight and has normal affect/mood MSK: no joint tenderness or swelling. Digits and nails normal, no deformity : kidney or bladder not palpable Access: permacath Labs/imaging reviewed. Past medical history, past surgical history, family history, social history, allergy reviewed and noted as below Family Hx: no hx of CKD. Non contributory Objective - Vital Signs/Intake and Output Vital Signs (last 24 hours): Temp Pulse Resp BP Pulse Ox 98.8 F 65 20 93/42 L 99 08/08/18 07:10 08/08/18 08:20 08/08/18 07:10 08/08/18 14:00 08/08/18 07:10 Intake and Output: 08/08/18 08/08/18 06:59 18:59 Intake Total 300 Balance 300 - Medications Medications: Current Medications Albuterol/Ipratropium (Duoneb 3 Mg/0.5 Mg (3 Ml) Ud) 3 ml IH RQ4 [facility] Last Admin: 08/08/18 07:50 Dose: 3 ml Amiodarone HCl (Cordarone) 200 mg PO DAILY [facility] Last Admin: 08/08/18 10:11 Dose: 200 mg Amlodipine Besylate (Norvasc) 10 mg PO DAILY [facility] Last Admin: 08/08/18 10:15 Dose: Not Given Apixaban (Eliquis) 2.5 mg PO BID [facility] Last Admin: 08/08/18 10:11 Dose: 2.5 mg Aspirin (Aspirin Chewable) 81 mg PO DAILY [facility] Last Admin: 08/08/18 10:11 Dose: 81 mg Calcitriol (Rocaltrol) 0.25 mcg PO TTS [facility] Last Admin: 08/07/18 09:08 Dose: 0.25 mcg Calcium Carbonate (Oscal) 500 mg PO BID [facility] Last Admin: 08/08/18 10:11 Dose: 500 mg Carvedilol (Coreg) 12.5 mg PO BID [facility] Last Admin: 08/08/18 10:12 Dose: Not Given Clopidogrel Bisulfate (Plavix) 75 mg PO DAILY [facility] Last Admin: 08/08/18 10:11 Dose: 75 mg Diltiazem HCl (Cardizem) 30 mg PO QID [facility] Last Admin: 08/08/18 13:52 Dose: Not Given Docusate Sodium (Colace) 100 mg PO TID PRN Last Admin: 08/08/18 10:11 Dose: 100 mg Epoetin Tom (Procrit) 4,000 unit IV TTS [facility] Last Admin: 08/07/18 11:56 Dose: 4,000 unit Ergocalciferol (Drisdol 50,000 Intl Units Cap) 1 cap PO Q7D [facility] Famotidine (Pepcid) 20 mg PO DAILY [facility] Last Admin: 08/08/18 10:11 Dose: 20 mg Heparin Sodium (Porcine) (Heparin) 3,700 units IVP TTS [facility] Last Admin: 08/07/18 12:02 Dose: 3,700 units Hydromorphone HCl (Dilaudid) 1 mg IVP Q6H PRN PRN Reason: Pain, severe (8-10) Last Admin: 08/08/18 11:39 Dose: 1 mg Insulin Detemir (Levemir) 4 unit SC DAILY [facility] Insulin Glargine (Lantus) 8 unit SC [facility] Last Admin: 08/07/18 21:44 Dose: Not Given Insulin Human Regular (Novolin R) 0 unit SC [facility]; Protocol Last Admin: 08/08/18 11:01 Dose: Not Given Isosorbide Mononitrate (Imdur) 60 mg PO DAILY [facility] Last Admin: 08/08/18 10:15 Dose: Not Given Levetiracetam (Keppra) 500 mg PO BID [facility] Last Admin: 08/08/18 10:11 Dose: 500 mg Losartan Potassium (Cozaar) 100 mg PO DAILY [facility] Last Admin: 08/08/18 10:15 Dose: Not Given Montelukast Sodium (Singulair) 10 mg PO DAILY [facility] Last Admin: 08/08/18 10:11 Dose: 10 mg Ranolazine (Ranexa) 500 mg PO BID [facility] Last Admin: 08/08/18 10:11 Dose: 500 mg Rosuvastatin Calcium (Crestor) 10 mg PO HS [facility] Last Admin: 08/07/18 22:27 Dose: 10 mg Sertraline HCl (Zoloft) 50 mg PO DAILY [facility] Last Admin: 08/08/18 11:39 Dose: 50 mg Tramadol HCl (Ultram) 50 mg PO Q6 PRN PRN Reason: Pain, moderate (4-7) Last Admin: 08/06/18 04:08 Dose: 50 mg Valproate Sodium (Depakene Cap) 250 mg PO QID [facility] Last Admin: 08/08/18 13:49 Dose: 250 mg Vitamin B Complex/Vit C/Folic Acid (Nephro-Courtney) 1 tab PO 0800 [facility] Last Admin: 08/08/18 10:11 Dose: 1 tab - Labs Labs: 08/05/18 13:01 08/05/18 13:01 PT 13.5 SECONDS (9.7-12.2) H 08/05/18 13:01 INR 1.2 08/05/18 13:01 APTT 37 SECONDS (21-34) H 08/05/18 13:01
[2018-08-08] MEDS: (Lantus) Insulin Glargine, Recombinant SC SCH (21:39)
[2018-08-09] MEDS ORDERED: Dextrose 50% SYRINGE Inj (50 ml) IV PRN (00:15)
[2018-08-09] MEDS ORDERED: Glucagon Recombinant 1 mg Inj IM PRN (00:15)
[2018-08-09] MEDS ORDERED: Dextrose 50% VIAL Inj (50 ml) IV ONE (00:15)
[2018-08-09] MEDS ORDERED: Dextrose 50% SYRINGE Inj (50 ml) IV STA (00:24)
[2018-08-09] MEDS: HYDROmorphone 1 mg/ml ISec IVP PRN ×2 (00:32→11:23)
[2018-08-09] MEDS: Albuterol-Ipratrop 3 mg / 0.5 (3 ml) UD IH SCH ×4 (00:45→14:47)
[2018-08-09] MEDS: (Novolin R) Insulin Human Regular 100 units/ml vial SC SCH ×3 (08:00→18:00)
[2018-08-09] MEDS: Multivitamin Vitamin B Complex (Nephro-Vite) Tab PO SCH (09:00)
--- NOTE | 2018-08-09 09:55 | CP.PCM.PN ---
Subjective - Date & Time of Evaluation Date of Evaluation: 08/09/18 Time of Evaluation: 09:52 - Subjective Subjective: pt feels beter no pain no vomiting less sob having dialysis now bs controled Objective - Vital Signs/Intake and Output Vital Signs (last 24 hours): Temp Pulse Resp BP Pulse Ox 98.9 F 78 20 114/61 96 08/09/18 07:37 08/09/18 07:37 08/09/18 07:37 08/09/18 07:37 08/09/18 07:37 - Medications Medications: Current Medications Albuterol/Ipratropium (Duoneb 3 Mg/0.5 Mg (3 Ml) Ud) 3 ml IH RQ4 [facility] Last Admin: 08/09/18 08:17 Dose: 3 ml Amiodarone HCl (Cordarone) 200 mg PO DAILY [facility] Last Admin: 08/08/18 10:11 Dose: 200 mg Amlodipine Besylate (Norvasc) 10 mg PO DAILY [facility] Last Admin: 08/08/18 10:15 Dose: Not Given Apixaban (Eliquis) 2.5 mg PO BID [facility] Last Admin: 08/08/18 17:43 Dose: 2.5 mg Aspirin (Aspirin Chewable) 81 mg PO DAILY [facility] Last Admin: 08/08/18 10:11 Dose: 81 mg Calcitriol (Rocaltrol) 0.25 mcg PO TTS [facility] Last Admin: 08/07/18 09:08 Dose: 0.25 mcg Calcium Carbonate (Oscal) 500 mg PO BID [facility] Last Admin: 08/08/18 17:43 Dose: 500 mg Carvedilol (Coreg) 12.5 mg PO BID [facility] Last Admin: 08/08/18 17:24 Dose: Not Given Clopidogrel Bisulfate (Plavix) 75 mg PO DAILY [facility] Last Admin: 08/08/18 10:11 Dose: 75 mg Dextrose (Dextrose 50% Inj) 0 ml IV STAT PRN; Protocol PRN Reason: Hypoglycemia Protocol Dextrose (Glutose 15) 0 gm PO ONCE PRN; Protocol PRN Reason: Hypoglycemia Protocol Diltiazem HCl (Cardizem) 30 mg PO QID [facility] Last Admin: 08/08/18 22:45 Dose: Not Given Docusate Sodium (Colace) 100 mg PO TID PRN Last Admin: 08/08/18 10:11 Dose: 100 mg Epoetin Tom (Procrit) 4,000 unit IV TTS [facility] Last Admin: 08/07/18 11:56 Dose: 4,000 unit Ergocalciferol (Drisdol 50,000 Intl Units Cap) 1 cap PO Q7D [facility] Famotidine (Pepcid) 20 mg PO DAILY [facility] Last Admin: 08/08/18 10:11 Dose: 20 mg Glucagon (Glucagen Diagnostic Kit) 0 mg IM STAT PRN; Protocol PRN Reason: Hypoglycemia Protocol Heparin Sodium (Porcine) (Heparin) 3,700 units IVP TTS [facility] Last Admin: 08/07/18 12:02 Dose: 3,700 units Hydromorphone HCl (Dilaudid) 1 mg IVP Q6H PRN PRN Reason: Pain, severe (8-10) Last Admin: 08/09/18 00:32 Dose: 1 mg Dextrose (Dextrose 5% In Water 1000 Ml) 1,000 mls @ 0 mls/hr IV .Q0M PRN; Protocol PRN Reason: Hypoglycemia Protocol Insulin Detemir (Levemir) 4 unit SC DAILY [facility] Insulin Glargine (Lantus) 8 unit SC [facility] Last Admin: 08/08/18 21:39 Dose: 8 units Insulin Human Regular (Novolin R) 0 unit [facility]; Protocol Last Admin: 08/09/18 08:00 Dose: Not Given Isosorbide Mononitrate (Imdur) 60 mg PO DAILY [facility] Last Admin: 08/08/18 10:15 Dose: Not Given Levetiracetam (Keppra) 500 mg PO BID [facility] Last Admin: 08/08/18 17:43 Dose: 500 mg Losartan Potassium (Cozaar) 100 mg PO DAILY [facility] Last Admin: 08/08/18 10:15 Dose: Not Given Montelukast Sodium (Singulair) 10 mg PO DAILY [facility] Last Admin: 08/08/18 10:11 Dose: 10 mg Ranolazine (Ranexa) 500 mg PO BID [facility] Last Admin: 08/08/18 17:45 Dose: 500 mg Rosuvastatin Calcium (Crestor) 10 mg PO HS [facility] Last Admin: 08/08/18 21:39 Dose: 10 mg Sertraline HCl (Zoloft) 50 mg PO DAILY [facility] Last Admin: 08/08/18 11:39 Dose: 50 mg Tramadol HCl (Ultram) 50 mg PO Q6 PRN PRN Reason: Pain, moderate (4-7) Last Admin: 08/06/18 04:08 Dose: 50 mg Valproate Sodium (Depakene Cap) 250 mg PO QID [facility] Last Admin: 08/08/18 21:39 Dose: 250 mg Vitamin B Complex/Vit C/Folic Acid (Nephro-Courtney) 1 tab PO 0800 [facility] Last Admin: 08/08/18 10:11 Dose: 1 tab - Labs Labs: 08/05/18 13:01 08/05/18 13:01 PT 13.5 SECONDS (9.7-12.2) H 08/05/18 13:01 INR 1.2 08/05/18 13:01 APTT 37 SECONDS (21-34) H 08/05/18 13:01 - Constitutional Appears: Non-toxic - Head Exam Head Exam: ATRAUMATIC, NORMAL INSPECTION - Eye Exam Eye Exam: Conjunctival injection - ENT Exam ENT Exam: Mucous Membranes Dry - Respiratory Exam Respiratory Exam: NORMAL BREATHING PATTERN - Cardiovascular Exam Cardiovascular Exam: REGULAR RHYTHM - GI/Abdominal Exam GI & Abdominal Exam: Normal Bowel Sounds - Rectal Exam Rectal Exam: NORMAL INSPECTION - Exam Additional comments: klinfilter - Extremities Exam Additional comments: bilateral amputation - Back Exam Back Exam: NORMAL INSPECTION - Neurological Exam Neurological Exam: Alert, Oriented x3 - Psychiatric Exam Psychiatric exam: Normal Affect - Skin Skin Exam: Normal Color, Pallor Assessment and Plan - Assessment and Plan (Free Text) Assessment: chf cad dm esrf improved will dc home today Plan: disch
[2018-08-09] MEDS: Ranolazine 500 mg Extended Release Tablets PO SCH ×2 (10:20→17:59)
[2018-08-09] MEDS: EPOETIN ALFA 4,000 UNIT/ML ML Dialysis IV SCH (10:40)
--- NOTE | 2018-08-09 13:28 | CP.PCM.PN ---
Subjective - Date & Time of Evaluation Date of Evaluation: 08/09/18 Time of Evaluation: 13:27 - Subjective Subjective: Nephrology Consultation Note: Assessment:Stable Pulmonary congestion , fluid overload, HTN emergency chronic chest pain, A flutter Diabetic chronic Kidney Disease (E11.22) Hypertensive Chronic Kidney Disease (I12.0) End stage renal disease (N18.6) dependence on hemodialysis (Z99.2) (TTS) via AVF Anemia (D64.9), Hyperphosphatemia (E83.39), Secondary Hyperparathyroidism (E21.1), HTN (I12.0) CAD s/p CABG, diastolic CHF, parox A flutter/fib, intra-cardiac thrombus, hx of Heparin induced thrombocytopenia, hx of seizure, blindness Plan: HD TTS Continue with Nephrovite 1 tab/day. Continue with phos binders home dose bp relatively stable Glycemic control, Dialysis consistent diet Further work up/management as per primary team Dose meds/antibiotics for ESRD status. Avoid fleets enema/magnesium based laxatives. S: seen and examined resting comfortably Physical Examination: General Appearance: in no acute respiratory distress, co-operative Vitals reviewed and noted as below Head; Atraumatic, normocephalic ENT: no ulcers no thrush. Tongue is midline. Oropharynx: no rash or ulcers. EYES: Pt is blind both eyes Neck; supple no lymphadenopathy, no thyromegaly or bruit Lungs: normal respiratory rate/effort. Breath sounds bilateral clear Heart: Normal rate. s1s2 normal. No rub or gallop. Extremities: no edema. No varicose veins. has b/l BKA. Neurological: Patient is awake follow commands no focal deficit Skin: Warm and dry. Normal turgor. No rash. Palpitation: Normal elasticity for age Abdomen: Abdomen is soft. Bowel sounds +. There is no abdominal tenderness, no guarding/rigidity or organomegaly Psych: limited insight and has normal affect/mood MSK: no joint tenderness or swelling. Digits and nails normal, no deformity : kidney or bladder not palpable Access: permacath Labs/imaging reviewed. Past medical history, past surgical history, family history, social history, allergy reviewed and noted as below Family Hx: no hx of CKD. Non contributory Objective - Vital Signs/Intake and Output Vital Signs (last 24 hours): Temp Pulse Resp BP Pulse Ox 99.2 F 72 18 80/52 L 100 08/09/18 09:40 08/09/18 09:40 08/09/18 09:40 08/09/18 13:00 08/09/18 09:40 - Medications Medications: Current Medications Albuterol/Ipratropium (Duoneb 3 Mg/0.5 Mg (3 Ml) Ud) 3 ml IH RQ4 [facility] Last Admin: 08/09/18 08:17 Dose: 3 ml Amiodarone HCl (Cordarone) 200 mg PO DAILY [facility] Last Admin: 08/09/18 10:17 Dose: Not Given Amlodipine Besylate (Norvasc) 10 mg PO DAILY [facility] Last Admin: 08/09/18 10:19 Dose: Not Given Apixaban (Eliquis) 2.5 mg PO BID [facility] Last Admin: 08/09/18 10:18 Dose: Not Given Aspirin (Aspirin Chewable) 81 mg PO DAILY [facility] Last Admin: 08/09/18 10:17 Dose: Not Given Calcitriol (Rocaltrol) 0.25 mcg PO TTS [facility] Last Admin: 08/09/18 10:20 Dose: Not Given Calcium Carbonate (Oscal) 500 mg PO BID [facility] Last Admin: 08/09/18 10:20 Dose: Not Given Carvedilol (Coreg) 12.5 mg PO BID [facility] Last Admin: 08/09/18 10:17 Dose: Not Given Clopidogrel Bisulfate (Plavix) 75 mg PO DAILY [facility] Last Admin: 08/09/18 10:20 Dose: Not Given Dextrose (Dextrose 50% Inj) 0 ml IV STAT PRN; Protocol PRN Reason: Hypoglycemia Protocol Dextrose (Glutose 15) 0 gm PO ONCE PRN; Protocol PRN Reason: Hypoglycemia Protocol Diltiazem HCl (Cardizem) 30 mg PO QID [facility] Last Admin: 08/09/18 10:17 Dose: Not Given Docusate Sodium (Colace) 100 mg PO TID PRN Last Admin: 08/08/18 10:11 Dose: 100 mg Epoetin Tom (Procrit) 4,000 unit IV TTS [facility] Last Admin: 08/09/18 10:40 Dose: 4,000 unit Ergocalciferol (Drisdol 50,000 Intl Units Cap) 1 cap PO Q7D [facility] Famotidine (Pepcid) 20 mg PO DAILY [facility] Last Admin: 08/09/18 10:20 Dose: Not Given Glucagon (Glucagen Diagnostic Kit) 0 mg IM STAT PRN; Protocol PRN Reason: Hypoglycemia Protocol Heparin Sodium (Porcine) (Heparin) 3,700 units IVP TTS [facility] Last Admin: 08/09/18 13:17 Dose: 3,700 units Hydromorphone HCl (Dilaudid) 1 mg IVP Q6H PRN PRN Reason: Pain, severe (8-10) Last Admin: 08/09/18 11:23 Dose: 1 mg Dextrose (Dextrose 5% In Water 1000 Ml) 1,000 mls @ 0 mls/hr IV .Q0M PRN; Protocol PRN Reason: Hypoglycemia Protocol Insulin Detemir (Levemir) 4 unit SC DAILY [facility] Last Admin: 08/09/18 10:19 Dose: Not Given Insulin Glargine (Lantus) [address] [facility] Last Admin: 08/08/18 21:39 Dose: 8 units Insulin Human Regular (Novolin R) 0 unit SC [facility]; Protocol Last Admin: 08/09/18 11:34 Dose: Not Given Isosorbide Mononitrate (Imdur) 60 mg PO DAILY [facility] Last Admin: 08/09/18 10:18 Dose: Not Given Levetiracetam (Keppra) 500 mg PO BID [facility] Last Admin: 08/09/18 10:19 Dose: Not Given Losartan Potassium (Cozaar) 100 mg PO DAILY [facility] Last Admin: 08/09/18 10:18 Dose: Not Given Montelukast Sodium (Singulair) 10 mg PO DAILY [facility] Last Admin: 08/09/18 10:20 Dose: Not Given Ranolazine (Ranexa) 500 mg PO BID [facility] Last Admin: 08/09/18 10:20 Dose: Not Given Rosuvastatin Calcium (Crestor) 10 mg PO HS [facility] Last Admin: 08/08/18 21:39 Dose: 10 mg Sertraline HCl (Zoloft) 50 mg PO DAILY [facility] Last Admin: 08/09/18 10:20 Dose: Not Given Tramadol HCl (Ultram) 50 mg PO Q6 PRN PRN Reason: Pain, moderate (4-7) Last Admin: 08/06/18 04:08 Dose: 50 mg Valproate Sodium (Depakene Cap) 250 mg PO QID [facility] Last Admin: 08/09/18 10:18 Dose: Not Given Vitamin B Complex/Vit C/Folic Acid (Nephro-Courtney) 1 tab PO 0800 [facility] Last Admin: 08/09/18 09:00 Dose: Not Given - Labs Labs: 08/05/18 13:01 08/05/18 13:01 PT 13.5 SECONDS (9.7-12.2) H 08/05/18 13:01 INR 1.2 08/05/18 13:01 APTT 37 SECONDS (21-34) H 08/05/18 13:01
[2018-08-09 13:48] VITALS: RESP 20
[2018-08-09 15:43] VITALS: BP 128/57; PULSE 77; TEMP 98.6; O2SAT 98
--- NOTE | 2018-08-09 16:05 | PCM.HF ---
Heart Failure Core Measure - Heart Failure Ejection Fraction: Less Than 40 % (35-40%) RAÚL Inhibitor Prescribed: No Contraindication/Reason for not providing: on arb Beta-Andrew Prescribed: Carvedilol Angiotensin II Receptor Andrew Prescribed: Yes AnticoagulationTherapy for Atrial Fibrillation/Atrialflutter: Yes Aldosterone Antagonist Prescribed: No Contraindication/Reason for not providing: renal dysfunction Hydralazine Nitrate Prescribed: No Contraindication/Reason for not providing: on amiodarone Implantable Cardioverter Defibrillator Therapy: No Contraindication/Reason for not providing: HD patient, not indicated, EF 40% Cardiac Resynchronization Therapy Prescribed: No Contraindication/Reason for not providing: not indicated - Follow up Will be discharged to: Home Follow Up Date (must be within 7 days from discharge): 08/21/18 Follow Up Time: 10:00
--- NOTE | 2018-08-12 19:43 | DS ---
HISTORY: The patient came in to the emergency room on 08/06/2018 complaining of short of breath and he was in congestive heart failure. The patient known to the hospital and to myself many times for admissions with coronary artery disease, status post CABG and diabetes mellitus insulin-dependent. He was also on dialysis by Dr. Mateo virk. On admission, he was really having short of breath. He has congestive heart failure. He was seen by them and he was started on dialysis. Blood pressure 152/74, respirations 20, his pulse was 56 and he had dialysis and he was monitored for his sugar and controlled and he was having dialysis a few times until he got better. He has improved and he was discharged on 08/09/2018 and to continue on all his medications and to follow up in office. FINAL DIAGNOSES: Acute congestive heart failure recurrent and atrial fibrillation, end-stage renal failure, diabetes mellitus insulin-dependent and chronic obstructive pulmonary disease, Sybil Li MD
== END 2018-08-09 19:45 | disposition home or self-care (01) | DRG 544 ==
LOC: C.ER 12:04 → C.9E 14:33 → C.5S 19:06
PROVIDERS: ADMIT Internal Medicine; ATTEND Internal Medicine
PROC: 5A1D70Z Performance of Urinary Filtration, Intermittent, Less than 6 Hours Per Day (ICD-10-PCS; principal; 2018-08-07)
PROC: 5A1D70Z Performance of Urinary Filtration, Intermittent, Less than 6 Hours Per Day (ICD-10-PCS; 2018-08-09)
DX: I13.2 Hypertensive heart and chronic kidney disease with heart failure and with stage 5 chronic kidney disease, or end stage renal disease (principal); I50.33 Acute on chronic diastolic (congestive) heart failure; N18.6 End stage renal disease; J44.9 Chronic obstructive pulmonary disease, unspecified; D75.82 Heparin induced thrombocytopenia (HIT); I48.92 Unspecified atrial flutter; E11.22 Type 2 diabetes mellitus with diabetic chronic kidney disease; I48.91 Unspecified atrial fibrillation; I16.1 Hypertensive emergency; R09.89 Other specified symptoms and signs involving the circulatory and respiratory systems; E83.39 Other disorders of phosphorus metabolism; G89.29 Other chronic pain; H54.7 Unspecified visual loss; I25.10 Atherosclerotic heart disease of native coronary artery without angina pectoris; I51.3 Intracardiac thrombosis, not elsewhere classified; G30.9 Alzheimer's disease, unspecified; N25.81 Secondary hyperparathyroidism of renal origin; D64.9 Anemia, unspecified; E78.00 Pure hypercholesterolemia, unspecified; F02.80 Dementia in other diseases classified elsewhere, unspecified severity, without behavioral disturbance, psychotic disturbance, mood disturbance, and anxiety; E03.9 Hypothyroidism, unspecified; F64.9 Gender identity disorder, unspecified; Z86.73 Personal history of transient ischemic attack (TIA), and cerebral infarction without residual deficits; Z87.01 Personal history of pneumonia (recurrent); Z87.11 Personal history of peptic ulcer disease; Z90.49 Acquired absence of other specified parts of digestive tract; Z95.1 Presence of aortocoronary bypass graft; Z95.5 Presence of coronary angioplasty implant and graft; Z99.2 Dependence on renal dialysis; Z79.4 Long term (current) use of insulin

== ENCOUNTER 2018-08-14 21:10 | Inpatient (IN) | payer OTHER ==
[2018-08-14 21:10] VITALS: PULSE 110; BMI 18.8
--- NOTE | 2018-08-14 22:15 | C.PDOC ---
History Of Present Illness 38 y/o male with history of anemia, anxiety, ESRD, CKD, CAD, CHF and COPD presents to ED with c/o chest pain, sob with cough and fever Tmax 103. Patient speaking in full sentences and denies chills, nausea, vomiting or any other com plaints at this time. Time Seen by Provider: 08/14/18 22:12 Chief Complaint (Nursing): Chest Pain Past Medical History Vital Signs: Last Vital Signs Temp 97.8 F 08/14/18 21:27 Pulse 76 08/14/18 22:03 Resp 18 08/14/18 22:08 BP 164/71 H 08/14/18 21:27 Pulse Ox 100 08/14/18 22:08 - Medical History PMH: Alzheimer's Disease, Anemia, Anxiety, Arthritis, Asthma, Atrial Fibrillation, Bronchitis, CAD, Cardia Arrhythmia, CHF, COPD, CVA, Depression, Diabetes, Deep Vein Thrombosis, Gastritis, Gastrointestinal Ulcer, Gall Bladder Disease, HTN, Hypercholesterolemia, Hypothyroidism, Pneumonia, End Stage Renal Disease, Chronic Kidney Disease, Seizures Denies: Hyperthyroidism, Kidney Stones, Sexually Transmitted Disease Surgical History: CABG (12/2009), Cholecystectomy (2011), Coronary Stent - [facility] (08/05/18) ABDOMINAL WALL SINOGRAM (12/31/13) ASSISTANCE WITH RESPIRATORY VENTILATION, 24-96 HRS, CPAP (05/31/18) C.A.T. SCAN OF ABDOMEN (10/31/13) CENTRAL VENOUS CATHETER PLACEMENT WITH GUIDANCE (02/10/15) CHANGE OTHER DEVICE IN TRUNK SUBCU/FASCIA, VIDEO PRESENTATION OPERATOR APPROACH (06/01/17) DILATE R ANT TIB ART W DRUG-ELUT INTRALUM, PERC (08/12/15) DILATION OF LEFT FEMORAL ARTERY, PERCUTANEOUS APPROACH (07/04/16) DILATION OF RIGHT FEMORAL ARTERY, PERCUTANEOUS APPROACH (08/12/15) DILATION OF RIGHT POPLITEAL ARTERY, PERCUTANEOUS APPROACH (08/12/15) DX ULTRASOUND-HEART (01/05/13) ENTERAL INFUSION OF CONCENTRATED NUT. SUBSTANCES (06/28/13) EXCIS DEBRIDE OF WOUND, INFECT, OR BURN (08/03/14) EXCISION OF STOMACH, ENDO, DIAGN (03/03/17) EXTIRPATION OF MATTER FROM L FEM ART, PERC APPROACH (07/04/16) EXTIRPATION OF MATTER FROM R FEM ART, PERC APPROACH (08/12/15) EXTIRPATION OF MATTER FROM R POPL ART, PERC APPROACH (08/12/15) FLUOROSCOPY OF L LOW EXTREM ART USING L OSM CONTRAST (08/12/15) FLUOROSCOPY OF R LOW EXTREM ART USING L OSM CONTRAST (08/12/15) FLUOROSCOPY OF RIGHT JUGULAR VEINS, GUIDANCE (06/01/17) FREE SKIN GRAFT NEC (08/03/14) HEAD SOFT TISS X-RAY NEC (04/15/13) HEMODIALYSIS (04/28/15) INCIS W REM OF FORIEGN BODY OR DEV FROM SKIN & SUBCUT TISSUE (08/08/13) INSERT INFUSION DEV IN R INT JUGULAR VEIN, PERC (06/01/17) INSERTION OF INFUSION DEV INTO R SUBCLAV VEIN, PERC APPROACH (01/19/16) INSERTION OF INFUSION DEV INTO SUP VENA CAVA, PERC APPROACH (01/07/18) INSPECTION OF UPPER INTESTINAL TRACT, ENDO (03/03/17) INTRODUCE OF OTH THROMBOLYTIC INTO PERIPH ART, PERC APPROACH (08/12/15) LAPAROSCOPIC CHOLECYSTECTOMY (09/21/13) LOC EXC LES METATAR/TAR (06/01/14) PACKED CELL TRANSFUSION (06/01/14) PERCUTAN LIVER ASPIRAT (12/31/13) PERFORMANCE OF URINARY FILTRATION, MULTIPLE (05/17/17) PERFORMANCE OF URINARY FILTRATION, SINGLE (12/18/16) SKIN & SUBQ INCISION NEC (10/24/14) TETANUS TOXOID ADMINIST (06/13/14) TRANSFUSE NONAUT RED BLOOD CELLS IN PERIPH VEIN, PERC (04/09/17) ULTRASONOGRAPHY OF RIGHT AND LEFT HEART (04/09/17) ULTRASONOGRAPHY OF SUPERIOR VENA CAVA, GUIDANCE (01/07/18) VENOUS CATHETERIZATION FOR RENAL DIALYSIS (08/08/13) VENOUS CATHETERIZATION NEC (04/30/13) Family History: States: Unknown Family Hx - Social History Hx Tobacco Use: No Hx Alcohol Use: Yes Hx Substance Use: No - Immunization History Hx Tetanus Toxoid Vaccination: Yes Hx Influenza Vaccination: Yes Hx Pneumococcal Vaccination: Yes Review Of Systems Except As Marked, All Systems Reviewed And Found Negative. Constitutional: Negative for: Chills Gastrointestinal: Negative for: Vomiting Physical Exam - Physical Exam Additional Physical Exam Comments: Appears: Non-toxic, No Acute Distress, Chronically Ill Skin: Warm, Dry, No Rash Head: Atraumatic, Normacephalic Eye(s): bilateral: Normal Inspection (blind) Oral Mucosa: Moist Neck: Normal ROM, Supple Chest: Symmetrical Cardiovascular: Rhythm Regular, No Friction Rub Respiratory: Normal Breath Sounds, No Rales, No Rhonchi, No Wheezing Gastrointestinal/Abdominal: Soft, No Tenderness, No Guarding, No Rebound Extremity: Other (bilateral BKA) Neurological/Psych: Oriented x3, Normal Speech ED Course And Treatment - Laboratory Results Result Diagrams: 08/14/18 22:29 08/14/18 23:20 O2 Sat by Pulse Oximetry: 100 Medical Decision Making Medical Decision Making: EKG NSR 76 bpm, no ST elevations, inferolateral T wave inversions. XR IMPRESSION as read by me: Cardiomegaly. Moderate pulmonary venous congestion. Hypoinflation. Dr. Sybil Li recommends admission and accepts onto her service. Disposition - Disposition Disposition: HOSPITALIZED Disposition Time: 23:00 Condition: GUARDED - POA Core Measure Indicators: Chest Pain - Clinical Impression Clinical Impression: ESRD (end stage renal disease), CHF (congestive heart failure), Chest pain, Dyspnea
[2018-08-14 22:46] LABS: BASO # 0.1 K/uL (0.0-0.2); BASO % 0.8 % (0.0-2.0); EOS # 0.2 K/uL (0.0-0.7); EOS % 3.2 % (0.0-4.0); HEMOGLOBIN 10.3 g/dL (12.0-18.0); LYMPH # 1.6 K/uL (1.0-4.3); LYMPH % 21.6 % (20.0-40.0); MEAN CORPUSCULAR HEMOGLOBIN 30.1 pg (27.0-31.0); MEAN PLATELET VOLUME 9.9 fL (7.2-11.7); MONO # 0.7 K/uL (0.0-0.8); NEUT # 4.8 K/uL (1.8-7.0); NEUT % 65.4 % (50.0-75.0); NRBC % 0.2 % (0.0-2.0); RBC 3.42 Mil/uL (4.40-5.90); RED CELL DISTRIBUTION WIDTH 18.4 % (11.5-14.5); WHITE BLOOD COUNT 7.3 K/uL (4.8-10.8)
[2018-08-14] MEDS ORDERED: Ergocalciferol 50,000 Intl Units Cap PO SCH (23:45)
[2018-08-14 23:52] LABS: CK-MB 0.71 ng/mL (0.0-3.38)
[2018-08-14 23:56] LABS: ALB/GLOB RATIO 1.2 (1.0-2.1); CALCIUM 8.9 mg/dl (8.6-10.4); TROPONIN I 0.034 ng/mL (0.00-0.120)
[2018-08-15] MEDS ORDERED: Glucagon Recombinant 1 mg Inj IM PRN (00:02)
[2018-08-15] MEDS ORDERED: Dextrose 50% SYRINGE Inj (50 ml) IV PRN (00:02)
[2018-08-15] MEDS: HYDROmorphone 1 mg/ml ISec IVP PRN ×4 (00:15→20:06)
[2018-08-15] MEDS: (Lantus) Insulin Glargine, Recombinant SC SCH ×2 (00:18→22:00)
--- NOTE | 2018-08-15 07:00 | CARD ---
APPROVED REPORT Date of service: 08/14/2018 EKG Measurement Heart [id number] <Conclusion> Normal sinus rhythm Left ventricular hypertrophy with QRS widening Inferior infarct, age undetermined T wave abnormality, consider lateral ischemia Abnormal ECG
[2018-08-15] MEDS: (Novolin R) Insulin Human Regular 100 units/ml vial SC SCH ×3 (08:21→17:00)
[2018-08-15] MEDS: Multivitamin Vitamin B Complex (Nephro-Vite) Tab PO SCH (08:53)
[2018-08-15] MEDS ORDERED: Albuterol-Ipratrop 3 mg / 0.5 (3 ml) UD IH SCH (10:00)
--- NOTE | 2018-08-15 10:17 | CP.PCM.HP ---
History of Present Illness - History of Present Illness History of Present Illness: pt came to ed for missed his dialysis has sob and c/o of sore throat and cough Present on Admission - Present on Admission Any Indicators Present on Admission: Yes Review of Systems - Review of Systems Systems not reviewed;Unavailable: Acuity of Condition - Constitutional Constitutional: Fatigue - EENT Eyes: Blind Spots Ears: As Per HPI Nose/Mouth/Throat: Sore Throat - Cardiovascular Cardiovascular: Chest Pain, Chest Pain at Rest, Dyspnea - Respiratory Respiratory: Cough, Dyspnea, Wheezing - Gastrointestinal Gastrointestinal: As Per HPI - Genitourinary Additional comments: on dialysis - Reproductive: 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 - Musculoskeletal Musculoskeletal: Back Pain - Integumentary Integumentary: As Per HPI - Neurological Neurological: Loss of Vision, Tingling - Psychiatric Psychiatric: Depression - Endocrine Additional Comments: bs 240 - Hematologic/Lymphatic Additional comments: aneamia Past Patient History - Infectious Disease Hx of Infectious Diseases: None - Tetanus Immunizations Tetanus Immunization: >10 years Ago - Past Medical History & Family History Past Medical History?: Yes - Past Social History Smoking Status: Never Smoked - CARDIAC Hx Cardiac Disorders: Yes Hx Atrial Fibrillation: Yes Hx Cardia Arrhythmia: Yes Hx Congestive Heart Failure: Yes Hx Hypercholesterolemia: Yes Hx Hypertension: Yes - PULMONARY Hx Respiratory Disorders: Yes Hx Asthma: Yes Hx Bronchitis: Yes Hx Chronic Obstructive Pulmonary Disease (COPD): Yes Hx Pneumonia: Yes - NEUROLOGICAL Hx Neurological Disorder: Yes Hx Alzheimer's Disease: Yes Hx Seizures: Yes - HEENT Hx HEENT Problems: Yes Hx Blind: Yes Hx Cataracts: Yes - RENAL Hx Chronic Kidney Disease: Yes Hx Kidney Stones: No - ENDOCRINE/METABOLIC Hx Endocrine Disorders: Yes Hx Hyperthyroidism: No Hx Hypothyroidism: Yes - HEMATOLOGICAL/ONCOLOGICAL Hx Blood Disorders: Yes Hx Anemia: Yes - INTEGUMENTARY Hx Dermatological Problems: No - MUSCULOSKELETAL/RHEUMATOLOGICAL Hx Musculoskeletal Disorders: Yes Hx Arthritis: Yes Hx Falls: No - GASTROINTESTINAL Hx Gastrointestinal Disorders: Yes Hx Gall Bladder Disease: Yes Hx Gastritis: Yes - GENITOURINARY/GYNECOLOGICAL Hx Genitourinary Disorders: No Hx Sexually Transmitted Disorders: No - PSYCHIATRIC Hx Psychophysiologic Disorder: Yes Hx Anxiety: Yes Hx Depression: Yes Hx Substance Use: No - SURGICAL HISTORY Hx Surgeries: Yes Hx Cholecystectomy: Yes (2011) 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/2009) Hx Coronary Stent: Yes - ANESTHESIA Hx Anesthesia: Yes Hx Anesthesia Reactions: No Hx Malignant Hyperthermia: No Meds Allergies/Adverse Reactions: Allergies Allergy/AdvReac Type Severity Reaction Status Date / Time acetaminophen [From Percocet] Allergy RASH Verified 08/14/18 21:33 atenolol Allergy RASH Verified 08/14/18 21:33 digoxin Allergy RASH Verified 08/14/18 21:33 milk Allergy ITCHING Verified 08/14/18 21:33 morphine Allergy RASH Verified 08/14/18 21:33 oxycodone HCl [From Percocet] Allergy RASH Verified 08/14/18 21:33 Physical Exam - Constitutional Appears: In Acute Distress - Head Exam Head Exam: ATRAUMATIC - Eye Exam Eye Exam: Conjunctival injection Additional comments: legaly blind - ENT Exam Additional comments: sore throat - Respiratory Exam Respiratory Exam: Decreased Breath Sounds, Rhonchi, Wheezes - Cardiovascular Exam Cardiovascular Exam: REGULAR RHYTHM, +S1, +S2 - GI/Abdominal Exam GI & Abdominal Exam: Normal Bowel Sounds Results - Vital Signs Recent Vital Signs: Last Vital Signs Temp 98.1 F 08/15/18 07:38 Pulse 66 08/15/18 07:38 Resp 20 08/15/18 07:38 BP 178/90 H 08/15/18 07:38 Pulse Ox 99 08/15/18 07:38 - Labs Result Diagrams: 08/14/18 22:29 08/14/18 23:20 Labs: Laboratory Results - last 24 hr 08/14/18 08/14/18 08/14/18 21:30 22:29 22:29 WBC 7.3 RBC 3.42 L Hgb 10.3 L Hct 32.1 L MCV 94.0 MCH 30.1 MCHC 32.0 L RDW 18.4 H Plt Count 197 MPV 9.9 Neut % (Auto) 65.4 Lymph % (Auto) 21.6 [place] % (Auto) 9.0 Eos % (Auto) 3.2 Baso % (Auto) 0.8 Neut # (Auto) 4.8 Lymph # (Auto) 1.6 [place] # (Auto) 0.7 Eos # (Auto) 0.2 Baso # (Auto) 0.1 Sodium Potassium Chloride Carbon Dioxide Anion Gap BUN Creatinine Est GFR ( Amer) Est GFR (Non-Af Amer) POC Glucose (mg/dL) 345 H Random Glucose Calcium Total Bilirubin AST ALT Alkaline Phosphatase Total Creatine Kinase CK-MB (Mass) Troponin I Total Protein Albumin Globulin Albumin/Globulin Ratio Influenza Typ A,B (EIA) Negative for flu a/b 08/14/18 08/14/18 08/15/18 23:20 23:20 06:14 WBC RBC Hgb Hct MCV MCH MCHC RDW Plt Count MPV Neut % (Auto) Lymph % (Auto) [place] % (Auto) Eos % (Auto) Baso % (Auto) Neut # (Auto) Lymph # (Auto) [place] # (Auto) Eos # (Auto) Baso # (Auto) Sodium 133 Potassium 5.3 H Chloride 94 L Carbon Dioxide 25 Anion Gap 20 BUN 55 H Creatinine 5.8 H Est GFR ( Amer) 13 Est GFR (Non-Af Amer) 11 POC Glucose (mg/dL) 242 H Random Glucose 327 H Calcium 8.9 Total Bilirubin 0.8 AST 39 ALT 18 L D Alkaline Phosphatase 192 H Total Creatine Kinase 26 L CK-MB (Mass) 0.71 Troponin I 0.0340 Total Protein 7.5 Albumin 4.0 Globulin 3.4 Albumin/Globulin Ratio 1.2 Influenza Typ A,B (EIA) Assessment & Plan - Assessment and Plan (Free Text) Assessment: recurent chf esrf missed dialysis copd ac sore throate Plan: as per orders - Date & Time Date: 08/15/18 Time: 10:22
--- NOTE | 2018-08-15 10:30 | RAD ---
HISTORY: chest pain COMPARISON: Chest x-ray performed 08/05/18 TECHNIQUE: Chest, one view. FINDINGS: Right IJ approach central venous catheter extends to the expected location of the proximal right atrium. LUNGS: Moderate pulmonary venous congestion. PLEURA: No significant pleural effusion identified. No definite pneumothorax . CARDIOVASCULAR: Median sternotomy wires. Cardiomegaly. OSSEOUS STRUCTURES: Degenerative changes. VISUALIZED UPPER ABDOMEN: Unremarkable. OTHER FINDINGS: None. IMPRESSION: Right IJ approach dialysis catheter. Cardiomegaly. Moderate pulmonary venous congestion. Hypoinflation.
[2018-08-15] MEDS: Pantoprazole 20 mg EC Tab PO SCH (10:58)
[2018-08-15] MEDS: Ranolazine 500 mg Extended Release Tablets PO SCH ×2 (10:59→20:15)
[2018-08-15 14:21] LABS: CK-MB 0.7 ng/mL (0.0-3.38); TROPONIN I 0.02 ng/mL (0.00-0.120)
--- NOTE | 2018-08-15 14:38 | CP.PCM.CON ---
History of Present Illness - History of Present Illness History of Present Illness: Nephrology Consultation Note: Assessment:Stable Pulmonary congestion, fluid overload, HTN urgency ? fever chronic chest pain, A flutter Diabetic chronic Kidney Disease (E11.22) Hypertensive Chronic Kidney Disease (I12.0) End stage renal disease (N18.6) dependence on hemodialysis (Z99.2) (TTS) via AVF Anemia (D64.9), Hyperphosphatemia (E83.39), Secondary Hyperparathyroidism (E21.1), HTN (I12.0) CAD s/p CABG, diastolic CHF, parox A flutter/fib, intra-cardiac thrombus, hx of Heparin induced thrombocytopenia, hx of seizure, blindness Plan: HD today as missed yesterday and then plan for dialysis as per TTS schedule Continue with Nephrovite 1 tab/day. not on HANNAH with HD . PRBC As needed for anemia, last Hb 10.3 Continue with phos binders home dose; renvela. continue with calcitriol and sensipar BP control with meds as ordered. on ARB as losartan Glycemic control, Dialysis consistent diet Further work up/management as per primary team Dose meds/antibiotics for ESRD status. Avoid fleets enema/magnesium based laxatives. check blood cx with HD Thanks for allowing me to participate in care of your patient. Will follow patient with you. Please call if any Qs. Dr Eric Temple Office: [phone] CC: SOB reason for consult: ESRD HPI: Pt is a 38 y/o transgender with hx of ESRD on hemodialysis (TTS) via permacath, chronic anemia, hyperphosphatemia, secondary hyperparathyroidism, Diabetes Mellitus, hypertension, CAD s/p CABG, diastolic CHF, pA flutter/fib, intra-cardiac thrombus, Heparin induced thrombocytopenia in past presented with complaints of SOB and chronic chest pain x 1 day. pt with recurrent and frequent hospitalizations for same complaints. missed hD yesterday reports fever 103 yesterday ROS: All other negative except as in HPI. has chronic chest pain, SOB Physical Examination: General Appearance: in no acute respiratory distress, co-operative Vitals reviewed and noted as below Head; Atraumatic, normocephalic ENT: no ulcers no thrush. Tongue is midline. Oropharynx: no rash or ulcers. EYES: Pt is blind both eyes Neck; supple no lymphadenopathy, no thyromegaly or bruit Lungs: normal respiratory rate/effort. Breath sounds bilateral reduced at bases Heart: Normal rate. s1s2 normal. No rub or gallop. Extremities: no edema. No varicose veins. has b/l BKA. Neurological: Patient is awake follow commands no focal deficit Skin: Warm and dry. Normal turgor. No rash. Palpitation: Normal elasticity for age Abdomen: Abdomen is soft. Bowel sounds +. There is no abdominal tenderness, no guarding/rigidity or organomegaly Psych: limited insight and has normal affect/mood MSK: no joint tenderness or swelling. Digits and nails normal, no deformity : kidney or bladder not palpable Access: permacath Labs/imaging reviewed. Past medical history, past surgical history, family history, social history, allergy reviewed and noted as below Family Hx: no hx of CKD. Non contributory Past Patient History - Infectious Disease Hx of Infectious Diseases: None - Tetanus Immunizations Tetanus Immunization: >10 years Ago - Past Medical History & Family History Past Medical History?: Yes - Past Social History Smoking Status: Never Smoked - CARDIAC Hx Cardiac Disorders: Yes Hx Atrial Fibrillation: Yes Hx Cardia Arrhythmia: Yes Hx Congestive Heart Failure: Yes Hx Hypercholesterolemia: Yes Hx Hypertension: Yes - PULMONARY Hx Respiratory Disorders: Yes Hx Asthma: Yes Hx Bronchitis: Yes Hx Chronic Obstructive Pulmonary Disease (COPD): Yes Hx Pneumonia: Yes - NEUROLOGICAL Hx Neurological Disorder: Yes Hx Alzheimer's Disease: Yes Hx Seizures: Yes - HEENT Hx HEENT Problems: Yes Hx Blind: Yes Hx Cataracts: Yes - RENAL Hx Chronic Kidney Disease: Yes Hx Kidney Stones: No - ENDOCRINE/METABOLIC Hx Endocrine Disorders: Yes Hx Hyperthyroidism: No Hx Hypothyroidism: Yes - HEMATOLOGICAL/ONCOLOGICAL Hx Blood Disorders: Yes Hx Anemia: Yes - INTEGUMENTARY Hx Dermatological Problems: No - MUSCULOSKELETAL/RHEUMATOLOGICAL Hx Musculoskeletal Disorders: Yes Hx Arthritis: Yes Hx Falls: No - GASTROINTESTINAL Hx Gastrointestinal Disorders: Yes Hx Gall Bladder Disease: Yes Hx Gastritis: Yes - GENITOURINARY/GYNECOLOGICAL Hx Genitourinary Disorders: No Hx Sexually Transmitted Disorders: No - PSYCHIATRIC Hx Psychophysiologic Disorder: Yes Hx Anxiety: Yes Hx Depression: Yes Hx Substance Use: No - SURGICAL HISTORY Hx Surgeries: Yes Hx Cholecystectomy: Yes (2011) 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/2009) Hx Coronary Stent: Yes - ANESTHESIA Hx Anesthesia: Yes Hx Anesthesia Reactions: No Hx Malignant Hyperthermia: No Meds Allergies/Adverse Reactions: Allergies Allergy/AdvReac Type Severity Reaction Status Date / Time acetaminophen [From Percocet] Allergy RASH Verified 08/14/18 21:33 atenolol Allergy RASH Verified 08/14/18 21:33 digoxin Allergy RASH Verified 08/14/18 21:33 milk Allergy ITCHING Verified 08/14/18 21:33 morphine Allergy RASH Verified 08/14/18 21:33 oxycodone HCl [From Percocet] Allergy RASH Verified 08/14/18 21:33 - Medications Medications: Current Medications Albuterol/Ipratropium (Duoneb 3 Mg/0.5 Mg (3 Ml) Ud) 3 ml IH RQID [facility] Amiodarone HCl (Cordarone) 200 mg PO DAILY [facility] Last Admin: 08/15/18 10:59 Dose: 200 mg Amlodipine Besylate (Norvasc) 10 mg PO DAILY [facility] Last Admin: 08/15/18 11:03 Dose: 10 mg Apixaban (Eliquis) 2.5 mg PO BID [facility] Last Admin: 08/15/18 11:00 Dose: 2.5 mg Aspirin (Aspirin Chewable) 81 mg PO DAILY [facility] Last Admin: 08/15/18 10:59 Dose: 81 mg Calcitriol (Rocaltrol) 0.25 mcg PO TTS [facility] Carvedilol (Coreg) 25 mg PO BID [facility] Last Admin: 08/15/18 11:21 Dose: 25 mg Cinacalcet (Sensipar) 60 mg PO QPM [facility] Clopidogrel Bisulfate (Plavix) 75 mg PO DAILY [facility] Last Admin: 08/15/18 11:00 Dose: 75 mg Dextrose (Dextrose 50% Inj) 0 ml IV STAT PRN; Protocol PRN Reason: Hypoglycemia Protocol Dextrose (Glutose 15) 0 gm PO ONCE PRN; Protocol PRN Reason: Hypoglycemia Protocol Diltiazem HCl (Cardizem) 30 mg PO QID [facility] Last Admin: 08/15/18 14:03 Dose: Not Given Docusate Sodium (Colace) 100 mg PO DAILY PRN PRN Reason: FOR CONSTIPATION Epoetin Tom (Procrit) 4,000 unit IV TTS [facility] Ergocalciferol (Drisdol 50,000 Intl Units Cap) 1 cap PO Q7D [facility] Glucagon (Glucagen Diagnostic Kit) 0 mg IM STAT PRN; Protocol PRN Reason: Hypoglycemia Protocol Guaifenesin (Robitussin) 100 mg PO Q6 PRN PRN Reason: Cough Hydralazine HCl (Apresoline) 50 mg PO Q8H [facility] Last Admin: 08/15/18 11:02 Dose: 50 mg Hydromorphone HCl (Dilaudid) 1 mg IVP Q6H PRN PRN Reason: pain Last Admin: 08/15/18 12:19 Dose: 1 mg Dextrose (Dextrose 5% In Water 1000 Ml) 1,000 mls @ 0 mls/hr IV .Q0M PRN; Protocol PRN Reason: Hypoglycemia Protocol Insulin Glargine (Lantus) 8 unit [place] [facility] Last Admin: 08/15/18 00:18 Dose: 8 u Insulin Human Regular (Novolin R) 0 unit SC [facility]; Protocol Last Admin: 08/15/18 11:49 Dose: Not Given Isosorbide Mononitrate (Imdur) 60 mg PO DAILY [facility] Last Admin: 08/15/18 11:00 Dose: 60 mg Levetiracetam (Keppra) 500 mg PO BID [facility] Last Admin: 08/15/18 10:58 Dose: 500 mg Losartan Potassium (Cozaar) 100 mg PO DAILY [facility] Last Admin: 08/15/18 11:02 Dose: 100 mg Montelukast Sodium (Singulair) 10 mg PO DAILY [facility] Last Admin: 08/15/18 11:11 Dose: 10 mg Pantoprazole Sodium (Protonix Ec Tab) 20 mg PO DAILY [facility] Last Admin: 08/15/18 10:58 Dose: 20 mg Ranolazine (Ranexa) 500 mg PO BID [facility] Last Admin: 08/15/18 10:59 Dose: 500 mg Rosuvastatin Calcium (Crestor) 10 mg PO HS [facility] Sertraline HCl (Zoloft) 50 mg PO DAILY [facility] Last Admin: 08/15/18 10:59 Dose: 50 mg Sevelamer Carbonate (Renvela) 800 mg PO TIDCC [facility] Tramadol HCl (Ultram) 50 mg PO Q6 PRN PRN Reason: Pain, moderate (4-7) Valproate Sodium (Depakene Cap) 250 mg PO QID [facility] Last Admin: 08/15/18 10:59 Dose: 250 mg Vitamin B Complex/Vit C/Folic Acid (Nephro-Courtney) 1 tab PO 0800 [facility] Last Admin: 08/15/18 08:53 Dose: 1 tab Results - Vital Signs Recent Vital Signs: Last Vital Signs Temp 98.1 F 08/15/18 07:38 Pulse 51 L 08/15/18 14:21 Resp 20 08/15/18 07:38 BP 108/55 L 08/15/18 14:21 Pulse Ox 99 08/15/18 07:38 - Labs Result Diagrams: 08/14/18 22:29 08/14/18 23:20 Labs: Laboratory Results - last 24 hr 08/14/18 08/14/18 08/14/18 21:30 22:29 22:29 WBC 7.3 RBC 3.42 L Hgb 10.3 L Hct 32.1 L MCV 94.0 MCH 30.1 MCHC 32.0 L RDW 18.4 H Plt Count 197 MPV 9.9 Neut % (Auto) 65.4 Lymph % (Auto) 21.6 [place] % (Auto) 9.0 Eos % (Auto) 3.2 Baso % (Auto) 0.8 Neut # (Auto) 4.8 Lymph # (Auto) 1.6 [place] # (Auto) 0.7 Eos # (Auto) 0.2 Baso # (Auto) 0.1 Sodium Potassium Chloride Carbon Dioxide Anion Gap BUN Creatinine Est GFR ( Amer) Est GFR (Non-Af Amer) POC Glucose (mg/dL) 345 H Random Glucose Calcium Total Bilirubin AST ALT Alkaline Phosphatase Total Creatine Kinase CK-MB (Mass) Troponin I Total Protein Albumin Globulin Albumin/Globulin Ratio Influenza Typ A,B (EIA) Negative for flu a/b 08/14/18 08/14/18 08/15/18 23:20 23:20 06:14 WBC RBC Hgb Hct MCV MCH MCHC RDW Plt Count MPV Neut % (Auto) Lymph % (Auto) [place] % (Auto) Eos % (Auto) Baso % (Auto) Neut # (Auto) Lymph # (Auto) [place] # (Auto) Eos # (Auto) Baso # (Auto) Sodium 133 Potassium 5.3 H Chloride 94 L Carbon Dioxide 25 Anion Gap 20 BUN 55 H Creatinine 5.8 H Est GFR ( Amer) 13 Est GFR (Non-Af Amer) 11 POC Glucose (mg/dL) 242 H Random Glucose 327 H Calcium 8.9 Total Bilirubin 0.8 AST 39 ALT 18 L D Alkaline Phosphatase 192 H Total Creatine Kinase 26 L CK-MB (Mass) 0.71 Troponin I 0.0340 Total Protein 7.5 Albumin 4.0 Globulin 3.4 Albumin/Globulin Ratio 1.2 Influenza Typ A,B (EIA) 08/15/18 08/15/18 11:32 13:41 WBC RBC Hgb Hct MCV MCH MCHC RDW Plt Count MPV Neut % (Auto) Lymph % (Auto) [place] % (Auto) Eos % (Auto) Baso % (Auto) Neut # (Auto) Lymph # (Auto) [place] # (Auto) Eos # (Auto) Baso # (Auto) Sodium Potassium Chloride Carbon Dioxide Anion Gap BUN Creatinine Est GFR ( Amer) Est GFR (Non-Af Amer) POC Glucose (mg/dL) 144 H Random Glucose Calcium Total Bilirubin AST ALT Alkaline Phosphatase Total Creatine Kinase 21 L CK-MB (Mass) 0.70 Troponin I 0.0200 Total Protein Albumin Globulin Albumin/Globulin Ratio Influenza Typ A,B (EIA)
[2018-08-15] MEDS: Albuterol-Ipratrop 3 mg / 0.5 (3 ml) UD IH SCH ×2 (16:20→19:35)
[2018-08-15] MEDS: guaiFENesin 100 mg/5 ml Syrup UD PO PRN (20:20)
[2018-08-16] MEDS: HYDROmorphone 1 mg/ml ISec IVP PRN ×4 (02:13→20:06)
[2018-08-16] MEDS: Multivitamin Vitamin B Complex (Nephro-Vite) Tab PO SCH (08:11)
[2018-08-16] MEDS: guaiFENesin 100 mg/5 ml Syrup UD PO PRN (08:11)
[2018-08-16] MEDS: (Novolin R) Insulin Human Regular 100 units/ml vial SC SCH ×4 (08:29→21:03)
[2018-08-16] MEDS: Albuterol-Ipratrop 3 mg / 0.5 (3 ml) UD IH SCH ×4 (08:45→19:40)
[2018-08-16] MEDS: Pantoprazole 20 mg EC Tab PO SCH (09:11)
[2018-08-16] MEDS: Ranolazine 500 mg Extended Release Tablets PO SCH ×2 (09:11→17:23)
[2018-08-16] MEDS ORDERED: Epoetin Alfa 4000 UNIT/ML Inj IV SCH (10:00)
--- NOTE | 2018-08-16 11:27 | CP.PCM.CON ---
Past Patient History - Infectious Disease Hx of Infectious Diseases: None - Tetanus Immunizations Tetanus Immunization: >10 years Ago - Past Medical History & Family History Past Medical History?: Yes - Past Social History Smoking Status: Never Smoked - CARDIAC Hx Cardiac Disorders: Yes Hx Atrial Fibrillation: Yes Hx Cardia Arrhythmia: Yes Hx Congestive Heart Failure: Yes Hx Hypercholesterolemia: Yes Hx Hypertension: Yes - PULMONARY Hx Respiratory Disorders: Yes Hx Asthma: Yes Hx Bronchitis: Yes Hx Chronic Obstructive Pulmonary Disease (COPD): Yes Hx Pneumonia: Yes - NEUROLOGICAL Hx Neurological Disorder: Yes Hx Alzheimer's Disease: Yes Hx Seizures: Yes - HEENT Hx HEENT Problems: Yes Hx Blind: Yes Hx Cataracts: Yes - RENAL Hx Chronic Kidney Disease: Yes Hx Kidney Stones: No - ENDOCRINE/METABOLIC Hx Endocrine Disorders: Yes Hx Hyperthyroidism: No Hx Hypothyroidism: Yes - HEMATOLOGICAL/ONCOLOGICAL Hx Blood Disorders: Yes Hx Anemia: Yes - INTEGUMENTARY Hx Dermatological Problems: No - MUSCULOSKELETAL/RHEUMATOLOGICAL Hx Musculoskeletal Disorders: Yes Hx Arthritis: Yes Hx Falls: No - GASTROINTESTINAL Hx Gastrointestinal Disorders: Yes Hx Gall Bladder Disease: Yes Hx Gastritis: Yes - GENITOURINARY/GYNECOLOGICAL Hx Genitourinary Disorders: No Hx Sexually Transmitted Disorders: No - PSYCHIATRIC Hx Psychophysiologic Disorder: Yes Hx Anxiety: Yes Hx Depression: Yes Hx Substance Use: No - SURGICAL HISTORY Hx Surgeries: Yes Hx Cholecystectomy: Yes (2011) 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/2009) Hx Coronary Stent: Yes - ANESTHESIA Hx Anesthesia: Yes Hx Anesthesia Reactions: No Hx Malignant Hyperthermia: No Meds Allergies/Adverse Reactions: Allergies Allergy/AdvReac Type Severity Reaction Status Date / Time acetaminophen [From Percocet] Allergy RASH Verified 08/14/18 21:33 atenolol Allergy RASH Verified 08/14/18 21:33 digoxin Allergy RASH Verified 08/14/18 21:33 milk Allergy ITCHING Verified 08/14/18 21:33 morphine Allergy RASH Verified 08/14/18 21:33 oxycodone HCl [From Percocet] Allergy RASH Verified 08/14/18 21:33 - Medications Medications: Current Medications Albuterol/Ipratropium (Duoneb 3 Mg/0.5 Mg (3 Ml) Ud) 3 ml IH RQID [facility] Last Admin: 08/15/18 19:35 Dose: 3 ml Amiodarone HCl (Cordarone) 200 mg PO DAILY [facility] Last Admin: 08/16/18 09:14 Dose: Not Given Amlodipine Besylate (Norvasc) 10 mg PO DAILY [facility] Last Admin: 08/16/18 09:11 Dose: Not Given Apixaban (Eliquis) 2.5 mg PO BID [facility] Last Admin: 08/16/18 09:12 Dose: 2.5 mg Aspirin (Aspirin Chewable) 81 mg PO DAILY [facility] Last Admin: 08/16/18 09:11 Dose: 81 mg Calcitriol (Rocaltrol) 0.25 mcg PO TTS [facility] Carvedilol (Coreg) 25 mg PO BID [facility] Last Admin: 08/16/18 09:10 Dose: Not Given Cinacalcet (Sensipar) 60 mg PO QPM [facility] Last Admin: 08/15/18 20:06 Dose: 60 mg Clopidogrel Bisulfate (Plavix) 75 mg PO DAILY [facility] Last Admin: 08/16/18 09:11 Dose: 75 mg Dextrose (Dextrose 50% Inj) 0 ml IV STAT PRN; Protocol PRN Reason: Hypoglycemia Protocol Dextrose (Glutose 15) 0 gm PO ONCE PRN; Protocol PRN Reason: Hypoglycemia Protocol Diltiazem HCl (Cardizem) 30 mg PO QID [facility] Last Admin: 08/15/18 14:03 Dose: Not Given Docusate Sodium (Colace) 100 mg PO DAILY PRN PRN Reason: FOR CONSTIPATION Epoetin Tom (Procrit) 4,000 unit IV TTS [facility] Ergocalciferol (Drisdol 50,000 Intl Units Cap) 1 cap PO Q7D [facility] Glucagon (Glucagen Diagnostic Kit) 0 mg IM STAT PRN; Protocol PRN Reason: Hypoglycemia Protocol Guaifenesin (Robitussin) 100 mg PO Q6 PRN PRN Reason: Cough Last Admin: 08/16/18 08:11 Dose: 100 mg Hydralazine HCl (Apresoline) 50 mg PO Q8H [facility] Last Admin: 08/16/18 02:20 Dose: Not Given Hydromorphone HCl (Dilaudid) 1 mg IVP Q6H PRN PRN Reason: pain Last Admin: 08/16/18 08:11 Dose: 1 mg Dextrose (Dextrose 5% In Water 1000 Ml) 1,000 mls @ 0 mls/hr IV .Q0M PRN; Protocol PRN Reason: Hypoglycemia Protocol Insulin Glargine (Lantus) 8 unit SC HS [facility] Last Admin: 08/15/18 22:00 Dose: 8 u Insulin Human Regular (Novolin R) 0 unit SC [facility]; Protocol Last Admin: 08/16/18 08:29 Dose: 3 units Isosorbide Mononitrate (Imdur) 60 mg PO DAILY [facility] Last Admin: 08/16/18 09:11 Dose: Not Given Levetiracetam (Keppra) 500 mg PO BID [facility] Last Admin: 08/16/18 09:11 Dose: 500 mg Losartan Potassium (Cozaar) 100 mg PO DAILY [facility] Last Admin: 08/16/18 09:10 Dose: Not Given Montelukast Sodium (Singulair) 10 mg PO DAILY [facility] Last Admin: 08/16/18 09:12 Dose: 10 mg Pantoprazole Sodium (Protonix Ec Tab) 20 mg PO DAILY [facility] Last Admin: 08/16/18 09:11 Dose: 20 mg Ranolazine (Ranexa) 500 mg PO BID [facility] Last Admin: 08/15/18 20:15 Dose: 500 mg Rosuvastatin Calcium (Crestor) 10 mg PO [facility] Last Admin: 08/15/18 21:59 Dose: 10 mg Sertraline HCl (Zoloft) 50 mg PO DAILY [facility] Last Admin: 08/16/18 09:12 Dose: 50 mg Sevelamer Carbonate (Renvela) 800 mg PO TIDCC [facility] Last Admin: 08/16/18 08:39 Dose: 800 mg Tramadol HCl (Ultram) 50 mg PO Q6 PRN PRN Reason: Pain, moderate (4-7) Valproate Sodium (Depakene Cap) 250 mg PO QID [facility] Last Admin: 08/16/18 09:11 Dose: 250 mg Vitamin B Complex/Vit C/Folic Acid (Nephro-Courtney) 1 tab PO 0800 [facility] Last Admin: 08/16/18 08:11 Dose: 1 tab Results - Vital Signs Recent Vital Signs: Last Vital Signs Temp 97.5 F L 08/16/18 07:00 Pulse 72 08/16/18 07:48 Resp 20 08/16/18 07:00 BP 149/82 08/16/18 07:00 Pulse Ox 100 08/16/18 07:00 - Labs Result Diagrams: 08/14/18 22:29 08/14/18 23:20 Labs: Laboratory Results - last 24 hr 08/15/18 08/15/18 08/15/18 11:32 13:41 16:33 POC Glucose (mg/dL) 144 H 109 Total Creatine Kinase 21 L CK-MB (Mass) 0.70 Troponin I 0.0200 08/15/18 08/16/18 08/16/18 21:04 06:08 10:44 POC Glucose (mg/dL) 174 H 222 H 38 L* Total Creatine Kinase CK-MB (Mass) Troponin I 08/16/18 08/16/18 10:46 11:08 POC Glucose (mg/dL) 40 L 82 Total Creatine Kinase CK-MB (Mass) Troponin I - EKG Data EKG Interpreted by: Myself EKG shows normal: Sinus rhythm, QRS complexes (LVH), ST-T waves (Non specific st t changes) Rate: Normal - Imaging and Cardiology Chest x-ray Status: Image reviewed by me Additional comment: No infiltrates or effusions, +Right IJ permcath, +Sternotomy wires Assessment & Plan - Assessment and Plan (Free Text) Assessment: 38 year old woman transgender chest pain, check serial troponin an EKG ESRD on HD PVD severe s/p bilateral BKA's, now with skin breadown in the amputation sites monitor DM is labile and brittle on insulin HTN is chornic and stable on coreg, norvasc Atrial flutter/fibrillaiton on elaquis 5mg po BID for CVA prophylaxsis and for prior intracardiac thrombus, amiodarone for rhythm control Angina s/p CABG now with failed grafts and multiple PCI now non revascularizable, ranexa and imdur for chronic stable angina, on plavix and elaquis I would d/c plavix due to risk of bleeding and continue DOAC. - Date & Time Date: 08/16/18 Time: 11:24
[2018-08-16 14:44] LABS: BASO # 0.1 K/uL (0.0-0.2); BASO % 0.9 % (0.0-2.0); EOS # 0.3 K/uL (0.0-0.7); EOS % 4.7 % (0.0-4.0); HEMOGLOBIN 9.1 g/dL (12.0-18.0); LYMPH # 1.2 K/uL (1.0-4.3); LYMPH % 16.3 % (20.0-40.0); MEAN CELL VOLUME 93.8 fL (80.0-94.0); MEAN CORPUSCULAR HEMOGLOBIN 29.8 pg (27.0-31.0); MEAN CORPUSCULAR HGB CONC 31.8 g/dL (33.0-37.0); MEAN PLATELET VOLUME 9.9 fL (7.2-11.7); MONO # 0.8 K/uL (0.0-0.8); MONO % 11.7 % (0.0-10.0); NEUT # 4.8 K/uL (1.8-7.0); NEUT % 66.4 % (50.0-75.0); RBC 3.05 Mil/uL (4.40-5.90); RED CELL DISTRIBUTION WIDTH 18.3 % (11.5-14.5); WHITE BLOOD COUNT 7.2 K/uL (4.8-10.8)
[2018-08-16 14:47] LABS: ALB/GLOB RATIO 1.2 (1.0-2.1); ALBUMIN 3.6 g/dL (3.5-5.0); CALCIUM 7.6 mg/dl (8.6-10.4)
--- NOTE | 2018-08-16 15:27 | CP.PCM.PN ---
Subjective - Date & Time of Evaluation Date of Evaluation: 08/16/18 Time of Evaluation: 15:24 - Subjective Subjective: has cold stuffy nose and cough alot sob Objective - Vital Signs/Intake and Output Vital Signs (last 24 hours): Temp Pulse Resp BP Pulse Ox 97.5 F L 65 20 149/82 100 08/16/18 07:00 08/16/18 11:57 08/16/18 07:00 08/16/18 07:00 08/16/18 07:00 - Medications Medications: Current Medications Albuterol/Ipratropium (Duoneb 3 Mg/0.5 Mg (3 Ml) Ud) 3 ml IH RQID [facility] Last Admin: 08/16/18 12:47 Dose: 3 ml Amiodarone HCl (Cordarone) 200 mg PO DAILY [facility] Last Admin: 08/16/18 09:14 Dose: Not Given Amlodipine Besylate (Norvasc) 10 mg PO DAILY [facility] Last Admin: 08/16/18 09:11 Dose: Not Given Apixaban (Eliquis) 2.5 mg PO BID [facility] Last Admin: 08/16/18 09:12 Dose: 2.5 mg Aspirin (Aspirin Chewable) 81 mg PO DAILY [facility] Last Admin: 08/16/18 09:11 Dose: 81 mg Calcitriol (Rocaltrol) 0.25 mcg PO TTS [facility] Last Admin: 08/16/18 09:11 Dose: 0.25 mcg Carvedilol (Coreg) 25 mg PO BID [facility] Last Admin: 08/16/18 09:10 Dose: Not Given Cinacalcet (Sensipar) 60 mg PO QPM [facility] Last Admin: 08/15/18 20:06 Dose: 60 mg Clopidogrel Bisulfate (Plavix) 75 mg PO DAILY [facility] Last Admin: 08/16/18 09:11 Dose: 75 mg Dextrose (Dextrose 50% Inj) 0 ml IV STAT PRN; Protocol PRN Reason: Hypoglycemia Protocol Dextrose (Glutose 15) 0 gm PO ONCE PRN; Protocol PRN Reason: Hypoglycemia Protocol Diltiazem HCl (Cardizem) 30 mg PO QID [facility] Last Admin: 08/15/18 14:03 Dose: Not Given Docusate Sodium (Colace) 100 mg PO DAILY PRN PRN Reason: FOR CONSTIPATION Epoetin Tom (Procrit) 4,000 unit IV TTS [facility] Ergocalciferol (Drisdol 50,000 Intl Units Cap) 1 cap PO Q7D [facility] Glucagon (Glucagen Diagnostic Kit) 0 mg IM STAT PRN; Protocol PRN Reason: Hypoglycemia Protocol Guaifenesin (Robitussin) 100 mg PO Q6 PRN PRN Reason: Cough Last Admin: 08/16/18 08:11 Dose: 100 mg Hydralazine HCl (Apresoline) 50 mg PO Q8H [facility] Last Admin: 08/16/18 10:30 Dose: Not Given Hydromorphone HCl (Dilaudid) 1 mg IVP Q6H PRN PRN Reason: pain Last Admin: 08/16/18 14:39 Dose: 1 mg Dextrose (Dextrose 5% In Water 1000 Ml) 1,000 mls @ 0 mls/hr IV .Q0M PRN; Protocol PRN Reason: Hypoglycemia Protocol Insulin Glargine (Lantus) 8 [address] [facility] Last Admin: 08/15/18 22:00 Dose: 8 u Insulin Human Regular (Novolin R) 0 unit SC [facility]; Protocol Last Admin: 08/16/18 11:41 Dose: Not Given Isosorbide Mononitrate (Imdur) 60 mg PO DAILY [facility] Last Admin: 08/16/18 09:11 Dose: Not Given Levetiracetam (Keppra) 500 mg PO BID [facility] Last Admin: 08/16/18 09:11 Dose: 500 mg Losartan Potassium (Cozaar) 100 mg PO DAILY [facility] Last Admin: 08/16/18 09:10 Dose: Not Given Montelukast Sodium (Singulair) 10 mg PO DAILY [facility] Last Admin: 08/16/18 09:12 Dose: 10 mg Pantoprazole Sodium (Protonix Ec Tab) 20 mg PO DAILY [facility] Last Admin: 08/16/18 09:11 Dose: 20 mg Ranolazine (Ranexa) 500 mg PO BID [facility] Last Admin: 08/16/18 09:11 Dose: Not Given Rosuvastatin Calcium (Crestor) 10 mg PO HS [facility] Last Admin: 08/15/18 21:59 Dose: 10 mg Sertraline HCl (Zoloft) 50 mg PO DAILY [facility] Last Admin: 08/16/18 09:12 Dose: 50 mg Sevelamer Carbonate (Renvela) 800 mg PO TIDCC [facility] Last Admin: 12/15/18 12:22 Dose: 800 mg Tramadol HCl (Ultram) 50 mg PO Q6 PRN PRN Reason: Pain, moderate (4-7) Valproate Sodium (Depakene Cap) 250 mg PO QID [facility] Last Admin: 08/16/18 14:54 Dose: Not Given Vitamin B Complex/Vit C/Folic Acid (Nephro-Courtney) 1 tab PO 0800 [facility] Last Admin: 08/16/18 08:11 Dose: 1 tab - Labs Labs: 08/16/18 14:28 08/16/18 14:28 - Constitutional Appears: In Acute Distress - Head Exam Head Exam: NORMAL INSPECTION - Eye Exam Eye Exam: Conjunctival injection - ENT Exam Additional comments: nose congested - Neck Exam Neck Exam: Full ROM - Respiratory Exam Respiratory Exam: Rales, Wheezes - Cardiovascular Exam Cardiovascular Exam: REGULAR RHYTHM, +S1, +S2, +S4 - GI/Abdominal Exam GI & Abdominal Exam: Normal Bowel Sounds - Rectal Exam Rectal Exam: NORMAL INSPECTION - Back Exam Back Exam: CVA tenderness (L) - Neurological Exam Neurological Exam: Awake, Oriented x3 - Psychiatric Exam Psychiatric exam: Normal Affect - Skin Skin Exam: Pallor Assessment and Plan - Assessment and Plan (Free Text) Assessment: ac uri ac bronchitis copd dm chfcad Plan: as per orders
[2018-08-16] MEDS: guaiFENesin 100 mg/5 ml Syrup UD PO SCH ×3 (17:23→23:43)
[2018-08-16] MEDS: Fluticasone Nasal 50 mcg/Spray NAS SCH (17:24)
[2018-08-16] MEDS: (Lantus) Insulin Glargine, Recombinant SC SCH (21:02)
[2018-08-16] MEDS: EPOETIN ALFA 4,000 UNIT/ML ML Dialysis IV SCH (22:18)
[2018-08-17] MEDS: HYDROmorphone 1 mg/ml ISec IVP PRN ×2 (02:04→08:11)
[2018-08-17] MEDS: guaiFENesin 100 mg/5 ml Syrup UD PO SCH ×4 (05:28→23:38)
[2018-08-17] MEDS: Albuterol-Ipratrop 3 mg / 0.5 (3 ml) UD IH SCH ×3 (07:05→19:46)
[2018-08-17] MEDS: (Novolin R) Insulin Human Regular 100 units/ml vial SC SCH ×4 (07:33→22:10)
[2018-08-17] MEDS: Multivitamin Vitamin B Complex (Nephro-Vite) Tab PO SCH (08:11)
[2018-08-17] MEDS: Ranolazine 500 mg Extended Release Tablets PO SCH ×2 (10:24→17:09)
[2018-08-17] MEDS: Fluticasone Nasal 50 mcg/Spray NAS SCH ×2 (10:31→17:10)
--- NOTE | 2018-08-17 12:24 | CP.PCM.PN ---
Subjective - Date & Time of Evaluation Date of Evaluation: 08/17/18 Time of Evaluation: 12:21 - Subjective Subjective: pt has more cough a lot of thick mucus sob in pain sore throate Objective - Vital Signs/Intake and Output Vital Signs (last 24 hours): Temp Pulse Resp BP Pulse Ox 98.3 F 75 20 110/63 95 08/17/18 07:00 08/17/18 11:20 08/17/18 07:00 08/17/18 11:20 08/17/18 07:00 Intake and Output: 08/17/18 08/17/18 06:59 18:59 Intake Total 160 Balance 160 - Medications Medications: Current Medications Albuterol/Ipratropium (Duoneb 3 Mg/0.5 Mg (3 Ml) Ud) 3 ml IH RQID [facility] Last Admin: 08/17/18 07:05 Dose: 3 ml Amiodarone HCl (Cordarone) 200 mg PO DAILY [facility] Last Admin: 08/17/18 11:00 Dose: 200 mg Amlodipine Besylate (Norvasc) 10 mg PO DAILY [facility] Last Admin: 08/17/18 10:26 Dose: 10 mg Apixaban (Eliquis) 2.5 mg PO BID [facility] Last Admin: 08/17/18 10:23 Dose: 2.5 mg Aspirin (Aspirin Chewable) 81 mg PO DAILY [facility] Last Admin: 08/17/18 10:24 Dose: 81 mg Calcitriol (Rocaltrol) 0.25 mcg PO TTS [facility] Last Admin: 08/16/18 09:11 Dose: 0.25 mcg Carvedilol (Coreg) 25 mg PO BID [facility] Last Admin: 08/17/18 10:45 Dose: Not Given Cinacalcet (Sensipar) 60 mg PO QPM [facility] Last Admin: 08/16/18 17:23 Dose: Not Given Clopidogrel Bisulfate (Plavix) 75 mg PO DAILY [facility] Last Admin: 08/17/18 10:23 Dose: 75 mg Dextrose (Dextrose 50% Inj) 0 ml IV STAT PRN; Protocol PRN Reason: Hypoglycemia Protocol Dextrose (Glutose 15) 0 gm PO ONCE PRN; Protocol PRN Reason: Hypoglycemia Protocol Diltiazem HCl (Cardizem) 30 mg PO QID [facility] Last Admin: 08/15/18 14:03 Dose: Not Given Docusate Sodium (Colace) 100 mg PO DAILY PRN PRN Reason: FOR CONSTIPATION Epoetin Tom (Procrit) 4,000 unit IV TTS [facility] Last Admin: 08/16/18 22:18 Dose: 4,000 unit Ergocalciferol (Drisdol 50,000 Intl Units Cap) 1 cap PO Q7D [facility] Famotidine (Pepcid) 20 mg PO DAILY [facility] Last Admin: 08/17/18 10:23 Dose: 20 mg Fluticasone Propionate (Flonase) 1 spr TAE BID [facility] Last Admin: 08/17/18 10:31 Dose: 1 spr Glucagon (Glucagen Diagnostic Kit) 0 mg IM STAT PRN; Protocol PRN Reason: Hypoglycemia Protocol Guaifenesin (Robitussin) 100 mg PO Q6 [facility] Last Admin: 08/17/18 05:28 Dose: Not Given Hydralazine HCl (Apresoline) 50 mg PO Q8H [facility] Last Admin: 08/17/18 11:17 Dose: 50 mg Hydromorphone HCl (Dilaudid) 1 mg IVP Q6H PRN PRN Reason: pain Last Admin: 08/17/18 08:11 Dose: 1 mg Dextrose (Dextrose 5% In Water 1000 Ml) 1,000 mls @ 0 mls/hr IV .Q0M PRN; Protocol PRN Reason: Hypoglycemia Protocol Insulin Glargine (Lantus) 8 unit SC HS [facility] Last Admin: 08/16/18 21:02 Dose: Not Given Insulin Human Regular (Novolin R) 0 unit SC [facility]; Protocol Last Admin: 08/17/18 11:21 Dose: Not Given Isosorbide Mononitrate (Imdur) 60 mg PO DAILY [facility] Last Admin: 08/17/18 10:26 Dose: 60 mg Levetiracetam (Keppra) 500 mg PO BID [facility] Last Admin: 08/17/18 10:23 Dose: 500 mg Losartan Potassium (Cozaar) 100 mg PO DAILY [facility] Last Admin: 08/17/18 10:45 Dose: Not Given Montelukast Sodium (Singulair) 10 mg PO DAILY [facility] Last Admin: 08/17/18 10:23 Dose: 10 mg Ranolazine (Ranexa) 500 mg PO BID [facility] Last Admin: 08/17/18 10:24 Dose: 500 mg Rosuvastatin Calcium (Crestor) 10 mg PO HS [facility] Last Admin: 08/16/18 21:24 Dose: 10 mg Sertraline HCl (Zoloft) 50 mg PO DAILY [facility] Last Admin: 08/17/18 10:23 Dose: 50 mg Sevelamer Carbonate (Renvela) 800 mg PO TIDCC [facility] Last Admin: 08/17/18 08:11 Dose: 800 mg Tramadol HCl (Ultram) 50 mg PO Q6 PRN PRN Reason: Pain, moderate (4-7) Last Admin: 08/16/18 18:01 Dose: 50 mg Valproate Sodium (Depakene Cap) 250 mg PO QID [facility] Last Admin: 08/17/18 10:24 Dose: 250 mg Vitamin B Complex/Vit C/Folic Acid (Nephro-Courtney) 1 tab PO 0800 [facility] Last Admin: 08/17/18 08:11 Dose: 1 tab - Labs Labs: 08/16/18 14:28 08/16/18 14:28 - Constitutional Appears: In Acute Distress - Head Exam Head Exam: ATRAUMATIC - Eye Exam Eye Exam: Conjunctival injection - ENT Exam Additional comments: stuffy nose thraot injected - Neck Exam Neck Exam: Full ROM - Respiratory Exam Respiratory Exam: Rales, Rhonchi, Wheezes, Respiratory Distress - Cardiovascular Exam Cardiovascular Exam: REGULAR RHYTHM - GI/Abdominal Exam GI & Abdominal Exam: Normal Bowel Sounds - Rectal Exam Rectal Exam: NORMAL INSPECTION - Exam Exam: NORMAL INSPECTION - Back Exam Back Exam: CVA tenderness (L) - Neurological Exam Neurological Exam: Alert, Awake - Psychiatric Exam Psychiatric exam: Normal Affect - Skin Skin Exam: Normal Color - Additional Findings Additional findings: ac uri bronchitis worse r/o pnumonia copd chf esrf dmid cad Assessment and Plan - Assessment and Plan (Free Text) Assessment: ac uri ac brochitis copd edrf dmid Plan: as per ordered
[2018-08-17] MEDS: HYDROmorphone 0.5 mg/0.5 ml ISec IVP SCH ×4 (13:28→21:38)
--- NOTE | 2018-08-17 15:36 | RAD ---
Date of service: 08/17/2018 HISTORY: possible pnumonia COMPARISON: Comparison is made to the previous study dated 08/14/2018 FINDINGS: LUNGS: Interval mild worsening of pulmonary congestion and hazy opacity at the inferior aspect of the right upper lobe since the previous exam. PLEURA: No significant pleural effusion noted. CARDIOVASCULAR: Small foci of aortic atherosclerotic calcification present. Normal cardiac size. No pulmonary vascular congestion. OSSEOUS STRUCTURES: No significant abnormalities. VISUALIZED UPPER ABDOMEN: Normal. OTHER FINDINGS: Right-sided hemodialysis catheter is seen in place. IMPRESSION: Interval mild worsening of pulmonary congestion since the previous exam.
--- NOTE | 2018-08-17 19:29 | CP.PCM.PN ---
Subjective - Date & Time of Evaluation Date of Evaluation: 08/17/18 Time of Evaluation: 19:28 - Subjective Subjective: Assessment:Stable Pulmonary congestion, fluid overload, HTN urgency ? fever chronic chest pain, A flutter Diabetic chronic Kidney Disease (E11.22) Hypertensive Chronic Kidney Disease (I12.0) End stage renal disease (N18.6) dependence on hemodialysis (Z99.2) (TTS) via AVF Anemia (D64.9), Hyperphosphatemia (E83.39), Secondary Hyperparathyroidism (E21.1), HTN (I12.0) CAD s/p CABG, diastolic CHF, parox A flutter/fib, intra-cardiac thrombus, hx of Heparin induced thrombocytopenia, hx of seizure, blindness Plan: HD TTS per schedule, tolerated well yesterday lytes reviewed continue nephrocaps . not on HANNAH with HD Continue with phos binders home dose; renvela. continue with calcitriol and sensipar BP control with meds as ordered. Physical Examination: General Appearance: in no acute respiratory distress, co-operative Vitals reviewed and noted as below Head; Atraumatic, normocephalic ENT: no ulcer EYES: Pt is blind both eyes Neck; supple no lymphadenopathy, no thyromegaly or bruit Lungs: normal respiratory rate/effort. Breath sounds bilateral reduced at bases Heart: Normal rate. s1s2 normal. No rub or gallop. Extremities: no edema. No varicose veins. has b/l BKA. Neurological: Patient is awake follow commands no focal deficit Skin: Warm and dry. Normal turgor. No rash. Abdomen: Abdomen is soft. Bowel sounds +. There is no abdominal tenderness, no guarding/rigidity or organomegaly Psych: limited insight and has normal affect/mood MSK: no joint tenderness Access: permacath Objective - Vital Signs/Intake and Output Vital Signs (last 24 hours): Temp Pulse Resp BP Pulse Ox 98 F 73 20 106/71 96 08/17/18 15:00 08/17/18 18:59 08/17/18 15:00 08/17/18 18:59 08/17/18 15:00 - Medications Medications: Current Medications Albuterol/Ipratropium (Duoneb 3 Mg/0.5 Mg (3 Ml) Ud) 3 ml IH RQID [facility] Last Admin: 12/16/18 11:10 Dose: Not Given Amiodarone HCl (Cordarone) 200 mg PO DAILY [facility] Last Admin: 08/17/18 11:00 Dose: 200 mg Amlodipine Besylate (Norvasc) 10 mg PO DAILY [facility] Last Admin: 08/17/18 10:26 Dose: 10 mg Apixaban (Eliquis) 2.5 mg PO BID [facility] Last Admin: 08/17/18 17:09 Dose: 2.5 mg Aspirin (Aspirin Chewable) 81 mg PO DAILY [facility] Last Admin: 08/17/18 10:24 Dose: 81 mg Calcitriol (Rocaltrol) 0.25 mcg PO TTS [facility] Last Admin: 08/16/18 09:11 Dose: 0.25 mcg Carvedilol (Coreg) 25 mg PO BID [facility] Last Admin: 08/17/18 18:25 Dose: Not Given Cinacalcet (Sensipar) 60 mg PO QPM [facility] Last Admin: 08/17/18 17:09 Dose: 60 mg Clopidogrel Bisulfate (Plavix) 75 mg PO DAILY [facility] Last Admin: 08/17/18 10:23 Dose: 75 mg Dextrose (Dextrose 50% Inj) 0 ml IV STAT PRN; Protocol PRN Reason: Hypoglycemia Protocol Dextrose (Glutose 15) 0 gm PO ONCE PRN; Protocol PRN Reason: Hypoglycemia Protocol Diltiazem HCl (Cardizem) 30 mg PO QID [facility] Last Admin: 08/15/18 14:03 Dose: Not Given Docusate Sodium (Colace) 100 mg PO DAILY PRN PRN Reason: FOR CONSTIPATION Epoetin Tom (Procrit) 4,000 unit IV TTS [facility] Last Admin: 08/16/18 22:18 Dose: 4,000 unit Ergocalciferol (Drisdol 50,000 Intl Units Cap) 1 cap PO Q7D [facility] Famotidine (Pepcid) 20 mg PO DAILY [facility] Last Admin: 08/17/18 10:23 Dose: 20 mg Fluticasone Propionate (Flonase) 1 spr TAE BID [facility] Last Admin: 08/17/18 17:10 Dose: 1 spr Glucagon (Glucagen Diagnostic Kit) 0 mg IM STAT PRN; Protocol PRN Reason: Hypoglycemia Protocol Guaifenesin (Robitussin) 100 mg PO Q6 [facility] Last Admin: 08/17/18 17:10 Dose: 100 mg Hydralazine HCl (Apresoline) 50 mg PO Q8H [facility] Last Admin: 08/17/18 18:57 Dose: 50 mg Hydromorphone HCl (Dilaudid) 0.5 mg IVP Q4H [facility] Last Admin: 08/17/18 17:15 Dose: 0.5 mg Dextrose (Dextrose 5% In Water 1000 Ml) 1,000 mls @ 0 mls/hr IV .Q0M PRN; Protocol PRN Reason: Hypoglycemia Protocol Insulin Glargine (Lantus) 8 unit SC [facility] Last Admin: 08/16/18 21:02 Dose: Not Given Insulin Human Regular (Novolin R) 0 unit SC [facility]; Protocol Last Admin: 08/17/18 17:08 Dose: 2 units Isosorbide Mononitrate (Imdur) 60 mg PO DAILY [facility] Last Admin: 08/17/18 10:26 Dose: 60 mg Levetiracetam (Keppra) 500 mg PO BID [facility] Last Admin: 08/17/18 17:09 Dose: 500 mg Losartan Potassium (Cozaar) 100 mg PO DAILY [facility] Last Admin: 08/17/18 10:45 Dose: Not Given Montelukast Sodium (Singulair) 10 mg PO DAILY [facility] Last Admin: 08/17/18 10:23 Dose: 10 mg Ranolazine (Ranexa) 500 mg PO BID [facility] Last Admin: 08/17/18 17:09 Dose: 500 mg Rosuvastatin Calcium (Crestor) 10 mg PO HS [facility] Last Admin: 08/16/18 21:24 Dose: 10 mg Sertraline HCl (Zoloft) 50 mg PO DAILY [facility] Last Admin: 08/17/18 10:23 Dose: 50 mg Sevelamer Carbonate (Renvela) 800 mg PO TIDCC [facility] Last Admin: 08/17/18 17:09 Dose: 800 mg Tramadol HCl (Ultram) 50 mg PO Q6 PRN PRN Reason: Pain, moderate (4-7) Last Admin: 08/17/18 14:49 Dose: 50 mg Valproate Sodium (Depakene Cap) 250 mg PO QID [facility] Last Admin: 08/17/18 17:09 Dose: 250 mg Vitamin B Complex/Vit C/Folic Acid (Nephro-Courtney) 1 tab PO 0800 [facility] Last Admin: 08/17/18 08:11 Dose: 1 tab - Labs Labs: 08/16/18 14:28 08/16/18 14:28
[2018-08-17] MEDS: (Lantus) Insulin Glargine, Recombinant SC SCH (22:09)
[2018-08-18] MEDS: HYDROmorphone 0.5 mg/0.5 ml ISec IVP SCH ×7 (01:36→20:15)
[2018-08-18] MEDS: guaiFENesin 100 mg/5 ml Syrup UD PO SCH ×3 (05:48→17:13)
[2018-08-18] MEDS: (Novolin R) Insulin Human Regular 100 units/ml vial SC SCH ×4 (07:30→21:31)
[2018-08-18] MEDS: Albuterol-Ipratrop 3 mg / 0.5 (3 ml) UD IH SCH ×4 (07:36→21:42)
[2018-08-18] MEDS: Multivitamin Vitamin B Complex (Nephro-Vite) Tab PO SCH (08:05)
[2018-08-18] MEDS: Ranolazine 500 mg Extended Release Tablets PO SCH ×2 (09:57→17:14)
[2018-08-18] MEDS: Fluticasone Nasal 50 mcg/Spray NAS SCH ×2 (10:04→17:15)
--- NOTE | 2018-08-18 10:21 | RAD ---
Date of service: 08/18/2018 HISTORY: r/o pneumonia COMPARISON: 08/17/2018 TECHNIQUE: Chest PA and lateral FINDINGS: LUNGS: Pulmonary vascular congestion and right upper lobe infiltrate unchanged PLEURA: No significant pleural effusion identified. No pneumothorax apparent. CARDIOVASCULAR: No aortic atherosclerotic calcification present. Moderate cardiomegaly mild vascular congestion OSSEOUS STRUCTURES: No significant abnormalities. VISUALIZED UPPER ABDOMEN: Normal. OTHER FINDINGS: None. IMPRESSION: Vascular congestion and right upper lobe infiltrate unchanged
[2018-08-18] MEDS: Piperacill/Tazo 2.25gm in Dex 2.25 GM/50 ML BAG IVPB SCH ×2 (10:55→22:55)
--- NOTE | 2018-08-18 14:49 | CP.PCM.PN ---
Subjective - Date & Time of Evaluation Date of Evaluation: 08/18/18 Time of Evaluation: 14:48 - Subjective Subjective: Nephrology Consultation Note: Assessment:Stable Pulmonary congestion, fluid overload, HTN urgency Pneumonia chronic chest pain, A flutter Diabetic chronic Kidney Disease (E11.22) Hypertensive Chronic Kidney Disease (I12.0) End stage renal disease (N18.6) dependence on hemodialysis (Z99.2) (TTS) via AVF Anemia (D64.9), Hyperphosphatemia (E83.39), Secondary Hyperparathyroidism (E21.1), HTN (I12.0) CAD s/p CABG, diastolic CHF, parox A flutter/fib, intra-cardiac thrombus, hx of Heparin induced thrombocytopenia, hx of seizure, blindness Plan: isolated UF today and then plan for dialysis as per TTS schedule Continue with Nephrovite 1 tab/day. not on HANNAH with HD . PRBC As needed for anemia, last Hb 9.1 Continue with phos binders home dose; renvela. continue with calcitriol and sensipar BP control with meds as ordered. on ARB as losartan Glycemic control, Dialysis consistent diet Further work up/management as per primary team Dose meds/antibiotics for ESRD status. Avoid fleets enema/magnesium based laxatives. check blood cx with HD Thanks for allowing me to participate in care of your patient. Will follow patient with you. Please call if any Qs. Dr Eric Temple Office: [phone] CC: SOB reason for consult: ESRD HPI: Pt is a 38 y/o transgender with hx of ESRD on hemodialysis (TTS) via perma cath, chronic anemia, hyperphosphatemia, secondary hyperparathyroidism, Diabetes Mellitus, hypertension, CAD s/p CABG, diastolic CHF, pA flutter/fib, intra- cardiac thrombus, Heparin induced thrombocytopenia in past presented with complaints of SOB and chronic chest pain x 1 day. pt with recurrent and frequent hospitalizations for same complaints. missed hD yesterday reports fever 103 yesterday ROS: All other negative except as in HPI. has chronic chest pain, SOB. required O2 via NRB and NC today. O2 sat low with o2 as per nursing staff Physical Examination: General Appearance: in no acute respiratory distress, co-operative Vitals reviewed and noted as below Head; Atraumatic, normocephalic ENT: no ulcers no thrush. Tongue is midline. Oropharynx: no rash or ulcers. EYES: Pt is blind both eyes Neck; supple no lymphadenopathy, no thyromegaly or bruit Lungs: normal respiratory rate/effort. Breath sounds bilateral diffuse crackles Heart: Normal rate. s1s2 normal. No rub or gallop. Extremities: no edema. No varicose veins. has b/l BKA. Neurological: Patient is awake follow commands no focal deficit Skin: Warm and dry. Normal turgor. No rash. Palpitation: Normal elasticity for age Abdomen: Abdomen is soft. Bowel sounds +. There is no abdominal tenderness, no guarding/rigidity or organomegaly Psych: limited insight and has normal affect/mood MSK: no joint tenderness or swelling. Digits and nails normal, no deformity : kidney or bladder not palpable Access: permacath Labs/imaging reviewed. Past medical history, past surgical history, family history, social history, allergy reviewed and noted as below Family Hx: no hx of CKD. Non contributory Objective - Vital Signs/Intake and Output Vital Signs (last 24 hours): Temp Pulse Resp BP Pulse Ox 99.3 F 58 L 20 100/62 100 08/18/18 09:16 08/18/18 14:00 08/18/18 07:56 08/18/18 14:00 08/18/18 07:56 Intake and Output: 08/18/18 08/18/18 06:59 18:59 Intake Total 0 Output Total 0 Balance 0 - Medications Medications: Current Medications Albumin Human (Albumin Human 25% (12.5 Gm/50 Ml)) 25 gm IV ONCE ONE Stop: 08/18/18 16:01 Albuterol/Ipratropium (Duoneb 3 Mg/0.5 Mg (3 Ml) Ud) 3 ml IH RQID [facility] Last Admin: 08/18/18 11:09 Dose: 3 ml Amiodarone HCl (Cordarone) 200 mg PO DAILY [facility] Last Admin: 08/18/18 10:55 Dose: Not Given Amlodipine Besylate (Norvasc) 10 mg PO DAILY [facility] Last Admin: 08/18/18 10:04 Dose: 10 mg Apixaban (Eliquis) 2.5 mg PO BID [facility] Last Admin: 08/18/18 09:57 Dose: 2.5 mg Aspirin (Aspirin Chewable) 81 mg PO DAILY [facility] Last Admin: 08/18/18 10:04 Dose: 81 mg Calcitriol (Rocaltrol) 0.25 mcg PO TTS [facility] Last Admin: 08/16/18 09:11 Dose: 0.25 mcg Carvedilol (Coreg) 25 mg PO BID [facility] Last Admin: 08/18/18 10:55 Dose: Not Given Cinacalcet (Sensipar) 60 mg PO QPM [facility] Last Admin: 08/17/18 17:09 Dose: 60 mg Clopidogrel Bisulfate (Plavix) 75 mg PO DAILY [facility] Last Admin: 08/18/18 09:57 Dose: 75 mg Dextrose (Dextrose 50% Inj) 0 ml IV STAT PRN; Protocol PRN Reason: Hypoglycemia Protocol Dextrose (Glutose 15) 0 gm PO ONCE PRN; Protocol PRN Reason: Hypoglycemia Protocol Diltiazem HCl (Cardizem) 30 mg PO QID [facility] Last Admin: 08/15/18 14:03 Dose: Not Given Docusate Sodium (Colace) 100 mg PO DAILY PRN PRN Reason: FOR CONSTIPATION Epoetin Tom (Procrit) 4,000 unit IV TTS [facility] Last Admin: 08/16/18 22:18 Dose: 4,000 unit Ergocalciferol (Drisdol 50,000 Intl Units Cap) 1 cap PO Q7D [facility] Famotidine (Pepcid) 20 mg PO DAILY [facility] Last Admin: 08/18/18 09:57 Dose: 20 mg Fluticasone Propionate (Flonase) 1 spr TAE BID [facility] Last Admin: 08/18/18 10:04 Dose: 1 spr Glucagon (Glucagen Diagnostic Kit) 0 mg IM STAT PRN; Protocol PRN Reason: Hypoglycemia Protocol Guaifenesin (Robitussin) 100 mg PO Q6 [facility] Last Admin: 08/18/18 05:48 Dose: 100 mg Hydralazine HCl (Apresoline) 50 mg PO Q8H [facility] Last Admin: 08/18/18 11:04 Dose: Not Given Hydromorphone HCl (Dilaudid) 0.5 mg IVP Q4H [facility] Last Admin: 08/18/18 13:28 Dose: Not Given Piperacillin Sod/Tazobactam Sod (Zosyn 2.25 Gm Iv Premix) 2.25 gm in 50 mls @ 100 mls/hr IVPB Q12 [facility]; Protocol Last Admin: 08/18/18 10:55 Dose: 100 mls/hr Insulin Glargine (Lantus) 8 unit SC [facility] Last Admin: 08/17/18 22:09 Dose: Not Given Insulin Human Regular (Novolin R) [address] [facility]; Protocol Last Admin: 08/18/18 11:30 Dose: Not Given Isosorbide Mononitrate (Imdur) 60 mg PO DAILY [facility] Last Admin: 08/18/18 09:57 Dose: 60 mg Levetiracetam (Keppra) 500 mg PO BID [facility] Last Admin: 08/18/18 09:57 Dose: 500 mg Losartan Potassium (Cozaar) 100 mg PO DAILY [facility] Last Admin: 08/18/18 09:56 Dose: 100 mg Montelukast Sodium (Singulair) 10 mg PO DAILY [facility] Last Admin: 08/18/18 09:57 Dose: 10 mg Ranolazine (Ranexa) 500 mg PO BID [facility] Last Admin: 08/18/18 09:57 Dose: 500 mg Rosuvastatin Calcium (Crestor) 10 mg PO [facility] Last Admin: 08/17/18 21:38 Dose: 10 mg Sertraline HCl (Zoloft) 50 mg PO DAILY [facility] Last Admin: 08/18/18 09:56 Dose: 50 mg Sevelamer Carbonate (Renvela) 800 mg PO TIDCC [facility] Last Admin: 08/18/18 08:05 Dose: 800 mg Tramadol HCl (Ultram) 50 mg PO Q6 PRN PRN Reason: Pain, moderate (4-7) Last Admin: 08/17/18 14:49 Dose: 50 mg Valproate Sodium (Depakene Cap) 250 mg PO QID [facility] Last Admin: 08/18/18 13:37 Dose: 250 mg Vitamin B Complex/Vit C/Folic Acid (Nephro-Courtney) 1 tab PO 0800 [facility] Last Admin: 08/18/18 08:05 Dose: 1 tab - Labs Labs: 08/16/18 14:28 08/16/18 14:28
[2018-08-18] MEDS ORDERED: Albumin Human 25% (12.5 gm/50 ml) IV ONE (16:00)
--- NOTE | 2018-08-18 18:51 | CP.PCM.PN ---
Subjective - Date & Time of Evaluation Date of Evaluation: 08/18/18 Time of Evaluation: 18:48 - Subjective Subjective: pt still coughing a lot his oxygen go down Objective - Vital Signs/Intake and Output Vital Signs (last 24 hours): Temp Pulse Resp BP Pulse Ox 96.3 F L 55 L 16 89/50 L 98 08/18/18 16:29 08/18/18 17:18 08/18/18 16:29 08/18/18 17:18 08/18/18 15:30 Intake and Output: 08/18/18 08/18/18 06:59 18:59 Intake Total 0 Output Total 0 Balance 0 - Medications Medications: Current Medications Albuterol/Ipratropium (Duoneb 3 Mg/0.5 Mg (3 Ml) Ud) 3 ml IH RQID [facility] Last Admin: 08/18/18 11:09 Dose: 3 ml Amiodarone HCl (Cordarone) 200 mg PO DAILY [facility] Last Admin: 08/18/18 10:55 Dose: Not Given Apixaban (Eliquis) 2.5 mg PO BID [facility] Last Admin: 08/18/18 17:13 Dose: 2.5 mg Aspirin (Aspirin Chewable) 81 mg PO DAILY [facility] Last Admin: 08/18/18 10:04 Dose: 81 mg Calcitriol (Rocaltrol) 0.25 mcg PO TTS [facility] Last Admin: 08/16/18 09:11 Dose: 0.25 mcg Carvedilol (Coreg) 25 mg PO BID [facility] Last Admin: 08/18/18 10:55 Dose: Not Given Cinacalcet (Sensipar) 60 mg PO QPM [facility] Last Admin: 08/18/18 17:14 Dose: 60 mg Clopidogrel Bisulfate (Plavix) 75 mg PO DAILY [facility] Last Admin: 08/18/18 09:57 Dose: 75 mg Dextrose (Dextrose 50% Inj) 0 ml IV STAT PRN; Protocol PRN Reason: Hypoglycemia Protocol Dextrose (Glutose 15) 0 gm PO ONCE PRN; Protocol PRN Reason: Hypoglycemia Protocol Diltiazem HCl (Cardizem) 30 mg PO QID [facility] Last Admin: 08/15/18 14:03 Dose: Not Given Docusate Sodium (Colace) 100 mg PO DAILY PRN PRN Reason: FOR CONSTIPATION Epoetin Tom (Procrit) 4,000 unit IV TTS [facility] Last Admin: 08/16/18 22:18 Dose: 4,000 unit Ergocalciferol (Drisdol 50,000 Intl Units Cap) 1 cap PO Q7D [facility] Famotidine (Pepcid) 20 mg PO DAILY [facility] Last Admin: 08/18/18 09:57 Dose: 20 mg Fluticasone Propionate (Flonase) 1 spr TAE BID [facility] Last Admin: 08/18/18 17:15 Dose: 1 spr Glucagon (Glucagen Diagnostic Kit) 0 mg IM STAT PRN; Protocol PRN Reason: Hypoglycemia Protocol Guaifenesin (Robitussin) 100 mg PO Q6 [facility] Last Admin: 08/18/18 17:13 Dose: 100 mg Hydralazine HCl (Apresoline) 50 mg PO Q8H [facility] Last Admin: 08/18/18 11:04 Dose: Not Given Hydromorphone HCl (Dilaudid) 0.5 mg IVP Q4H [facility] Last Admin: 08/18/18 13:28 Dose: Not Given Piperacillin Sod/Tazobactam Sod (Zosyn 2.25 Gm Iv Premix) 2.25 gm in 50 mls @ 100 mls/hr IVPB Q12 [facility]; Protocol Last Admin: 08/18/18 10:55 Dose: 100 mls/hr Insulin Glargine (Lantus) 8 unit SC HS [facility] Last Admin: 08/17/18 22:09 Dose: Not Given Insulin Human Regular (Novolin R) 0 unit SC ACHS [facility]; Protocol Last Admin: 08/18/18 11:30 Dose: Not Given Isosorbide Mononitrate (Imdur) 60 mg PO DAILY [facility] Last Admin: 08/18/18 09:57 Dose: 60 mg Levetiracetam (Keppra) 500 mg PO BID [facility] Last Admin: 08/18/18 17:13 Dose: 500 mg Losartan Potassium (Cozaar) 100 mg PO DAILY [facility] Last Admin: 08/18/18 09:56 Dose: 100 mg Montelukast Sodium (Singulair) 10 mg PO DAILY [facility] Last Admin: 08/18/18 09:57 Dose: 10 mg Ranolazine (Ranexa) 500 mg PO BID [facility] Last Admin: 08/18/18 17:14 Dose: 500 mg Rosuvastatin Calcium (Crestor) 10 mg PO HS [facility] Last Admin: 08/17/18 21:38 Dose: 10 mg Sertraline HCl (Zoloft) 50 mg PO DAILY [facility] Last Admin: 08/18/18 09:56 Dose: 50 mg Sevelamer Carbonate (Renvela) 800 mg PO TIDCC [facility] Last Admin: 08/18/18 17:14 Dose: 800 mg Tramadol HCl (Ultram) 50 mg PO Q6 PRN PRN Reason: Pain, moderate (4-7) Last Admin: 08/17/18 14:49 Dose: 50 mg Valproate Sodium (Depakene Cap) 250 mg PO QID [facility] Last Admin: 08/18/18 17:14 Dose: 250 mg Vitamin B Complex/Vit C/Folic Acid (Nephro-Courtney) 1 tab PO 0800 [facility] Last Admin: 08/18/18 08:05 Dose: 1 tab - Labs Labs: 08/16/18 14:28 08/16/18 14:28 - Constitutional Appears: In Acute Distress - Head Exam Head Exam: ATRAUMATIC - Eye Exam Eye Exam: Conjunctival injection - ENT Exam ENT Exam: Mucous Membranes Moist Additional comments: nose congestedthroat hurts - Neck Exam Neck Exam: Full ROM - Respiratory Exam Respiratory Exam: Rales, Wheezes - Cardiovascular Exam Cardiovascular Exam: REGULAR RHYTHM - GI/Abdominal Exam GI & Abdominal Exam: Normal Bowel Sounds - Rectal Exam Rectal Exam: NORMAL INSPECTION - Back Exam Back Exam: NORMAL INSPECTION - Neurological Exam Neurological Exam: Awake, Oriented x3 - Psychiatric Exam Psychiatric exam: Normal Affect - Skin Skin Exam: Pallor Assessment and Plan - Assessment and Plan (Free Text) Assessment: uri ac bronchitis copd ef dm
[2018-08-18] MEDS: (Lantus) Insulin Glargine, Recombinant SC SCH (21:30)
[2018-08-19] MEDS: HYDROmorphone 0.5 mg/0.5 ml ISec IVP SCH ×7 (00:47→23:30)
[2018-08-19] MEDS: guaiFENesin 100 mg/5 ml Syrup UD PO SCH ×5 (00:47→23:29)
[2018-08-19] MEDS: (Novolin R) Insulin Human Regular 100 units/ml vial SC SCH ×4 (07:18→21:16)
[2018-08-19] MEDS: Albuterol-Ipratrop 3 mg / 0.5 (3 ml) UD IH SCH ×3 (07:20→19:28)
--- NOTE | 2018-08-19 08:32 | CP.PCM.PN ---
Subjective - Date & Time of Evaluation Date of Evaluation: 08/19/18 Time of Evaluation: 08:29 - Subjective Subjective: Presented with SOB, cough and missed HD and Recurrent and chronic CP due to musculoskeletal, neuropathic and chronic non-revascularizable CAD Currently: + cough, URI/congestion, alert, awake and appropriate but feels hypoglycemic...nursing reports sugars 70...given juice denies fevers, chills, N/V Objective - Vital Signs/Intake and Output Vital Signs (last 24 hours): Temp Pulse Resp BP Pulse Ox 98 F 74 18 105/62 93 L 08/19/18 07:31 08/19/18 07:31 08/19/18 07:31 08/19/18 07:31 08/19/18 07:31 Intake and Output: 08/19/18 08/19/18 06:59 18:59 Intake Total 120 Balance 120 - Medications Medications: Current Medications Albuterol/Ipratropium (Duoneb 3 Mg/0.5 Mg (3 Ml) Ud) 3 ml IH RQID [facility] Last Admin: 08/18/18 21:42 Dose: Not Given Amiodarone HCl (Cordarone) 200 mg PO DAILY [facility] Last Admin: 08/18/18 10:55 Dose: Not Given Apixaban (Eliquis) 2.5 mg PO BID [facility] Last Admin: 08/18/18 17:13 Dose: 2.5 mg Aspirin (Aspirin Chewable) 81 mg PO DAILY [facility] Last Admin: 08/18/18 10:04 Dose: 81 mg Calcitriol (Rocaltrol) 0.25 mcg PO TTS [facility] Last Admin: 08/16/18 09:11 Dose: 0.25 mcg Carvedilol (Coreg) 25 mg PO BID [facility] Last Admin: 08/18/18 17:14 Dose: Not Given Cinacalcet (Sensipar) 60 mg PO QPM [facility] Last Admin: 08/18/18 17:14 Dose: 60 mg Clopidogrel Bisulfate (Plavix) 75 mg PO DAILY [facility] Last Admin: 08/18/18 09:57 Dose: 75 mg Dextrose (Dextrose 50% Inj) 0 ml IV STAT PRN; Protocol PRN Reason: Hypoglycemia Protocol Dextrose (Glutose 15) 0 gm PO ONCE PRN; Protocol PRN Reason: Hypoglycemia Protocol Diltiazem HCl (Cardizem) 30 mg PO QID [facility] Last Admin: 08/15/18 14:03 Dose: Not Given Docusate Sodium (Colace) 100 mg PO DAILY PRN PRN Reason: FOR CONSTIPATION Epoetin Tom (Procrit) 4,000 unit IV TTS [facility] Last Admin: 08/16/18 22:18 Dose: 4,000 unit Ergocalciferol (Drisdol 50,000 Intl Units Cap) 1 cap PO Q7D [facility] Famotidine (Pepcid) 20 mg PO DAILY [facility] Last Admin: 08/18/18 09:57 Dose: 20 mg Fluticasone Propionate (Flonase) 1 spr TAE BID [facility] Last Admin: 08/18/18 17:15 Dose: 1 spr Glucagon (Glucagen Diagnostic Kit) 0 mg IM STAT PRN; Protocol PRN Reason: Hypoglycemia Protocol Guaifenesin (Robitussin) 100 mg PO Q6 [facility] Last Admin: 08/19/18 06:10 Dose: 100 mg Hydralazine HCl (Apresoline) 50 mg PO Q8H [facility] Last Admin: 08/19/18 02:30 Dose: Not Given Hydromorphone HCl (Dilaudid) 0.5 mg IVP Q4H [facility] Last Admin: 08/19/18 04:30 Dose: Not Given Piperacillin Sod/Tazobactam Sod (Zosyn 2.25 Gm Iv Premix) 2.25 gm in 50 mls @ 100 mls/hr IVPB Q12 [facility]; Protocol Last Admin: 08/18/18 22:55 Dose: 100 mls/hr Insulin Glargine (Lantus) 8 unit SC HS [facility] Last Admin: 08/18/18 21:30 Dose: Not Given Insulin Human Regular (Novolin R) 0 unit SC ACHS [facility]; Protocol Last Admin: 08/19/18 07:18 Dose: Not Given Isosorbide Mononitrate (Imdur) 60 mg PO DAILY [facility] Last Admin: 08/18/18 09:57 Dose: 60 mg Levetiracetam (Keppra) 500 mg PO BID [facility] Last Admin: 08/18/18 17:13 Dose: 500 mg Losartan Potassium (Cozaar) 100 mg PO DAILY [facility] Last Admin: 08/18/18 09:56 Dose: 100 mg Montelukast Sodium (Singulair) 10 mg PO DAILY [facility] Last Admin: 08/18/18 09:57 Dose: 10 mg Ranolazine (Ranexa) 500 mg PO BID [facility] Last Admin: 08/18/18 17:14 Dose: 500 mg Rosuvastatin Calcium (Crestor) 10 mg PO HS [facility] Last Admin: 08/18/18 21:33 Dose: 10 mg Sertraline HCl (Zoloft) 50 mg PO DAILY [facility] Last Admin: 08/18/18 09:56 Dose: 50 mg Sevelamer Carbonate (Renvela) 800 mg PO TIDCC [facility] Last Admin: 08/18/18 17:14 Dose: 800 mg Tramadol HCl (Ultram) 50 mg PO Q6 PRN PRN Reason: Pain, moderate (4-7) Last Admin: 08/17/18 14:49 Dose: 50 mg Valproate Sodium (Depakene Cap) 250 mg PO QID [facility] Last Admin: 08/18/18 21:33 Dose: 250 mg Vitamin B Complex/Vit C/Folic Acid (Nephro-Courtney) 1 tab PO 0800 [facility] Last Admin: 08/18/18 08:05 Dose: 1 tab - Labs Labs: 08/16/18 14:28 08/16/18 14:28 - Constitutional Appears: Chronically Ill - Head Exam Head Exam: ATRAUMATIC, NORMAL INSPECTION, NORMOCEPHALIC - Eye Exam Eye Exam: absent: Normal appearance (legally blind), Scleral icterus - ENT Exam ENT Exam: Mucous Membranes Moist, Normal Oropharynx - Neck Exam Neck Exam: Full ROM, Normal Inspection. absent: Thyromegaly - Respiratory Exam Respiratory Exam: Rhonchi, Wheezes. absent: Accessory Muscle Use - Cardiovascular Exam Cardiovascular Exam: REGULAR RHYTHM, +S1, +S2, Murmur - GI/Abdominal Exam GI & Abdominal Exam: Soft, Normal Bowel Sounds. absent: Tenderness - Extremities Exam Extremities Exam: absent: Normal Inspection (b/l BKA stump non-infected appearing) Assessment and Plan - Assessment and Plan (Free Text) Assessment: 38 year old woman transgender chest pain, check serial troponin an EKG ESRD on HD PVD severe s/p bilateral BKA's, now with skin breadown in the amputation sites monitor DM is labile and brittle on insulin HTN is chornic and stable on coreg, norvasc, Hydralazine and losartan Atrial flutter/fibrillaiton suggest eliquis 5mg po BID for CVA prophylaxsis and for prior intracardiac thrombus, amiodarone for rhythm control Angina s/p CABG now with failed grafts and multiple PCI now non revascularizable, ranexa and imdur for chronic stable angina, on plavix, ASA and eliquis I would d/c plavix due to risk of bleeding and continue DOAC at 5mg BID SOB/Cough/URI and infiltrate on CXR: on ABX low BP: monitor for sepsis Hypoglycemic sxs with sugars 50-60....given juice and improved.
[2018-08-19] MEDS: Multivitamin Vitamin B Complex (Nephro-Vite) Tab PO SCH (08:54)
[2018-08-19] MEDS ORDERED: Dextrose 50% VIAL Inj (50 ml) IV ONE (09:07)
[2018-08-19] MEDS: Fluticasone Nasal 50 mcg/Spray NAS SCH ×2 (09:54→17:39)
[2018-08-19] MEDS: Ranolazine 500 mg Extended Release Tablets PO SCH ×2 (09:55→17:39)
[2018-08-19] MEDS ORDERED: Ergocalciferol 50,000 Intl Units Cap PO SCH (10:00)
[2018-08-19] MEDS: Piperacill/Tazo 2.25gm in Dex 2.25 GM/50 ML BAG IVPB SCH ×2 (10:00→21:25)
[2018-08-19] MEDS: EPOETIN ALFA 4,000 UNIT/ML ML Dialysis IV SCH (10:38)
--- NOTE | 2018-08-19 10:39 | CP.PCM.PN ---
Subjective - Date & Time of Evaluation Date of Evaluation: 08/19/18 Time of Evaluation: 10:37 - Subjective Subjective: PT UNCOMFORTABLE COUGHING ALL THE TIME SOB OXYGEN LOW BP LOW Objective - Vital Signs/Intake and Output Vital Signs (last 24 hours): Temp Pulse Resp BP Pulse Ox 99.2 F 82 20 83/47 L 100 08/19/18 10:00 08/19/18 10:00 08/19/18 10:00 08/19/18 10:15 08/19/18 10:00 Intake and Output: 08/19/18 08/19/18 06:59 18:59 Intake Total 120 Balance 120 - Medications Medications: Current Medications Albuterol/Ipratropium (Duoneb 3 Mg/0.5 Mg (3 Ml) Ud) 3 ml IH RQID [facility] Last Admin: 08/19/18 07:20 Dose: Not Given Amiodarone HCl (Cordarone) 200 mg PO DAILY [facility] Last Admin: 08/19/18 09:53 Dose: Not Given Apixaban (Eliquis) 2.5 mg PO BID [facility] Last Admin: 08/19/18 09:54 Dose: Not Given Aspirin (Aspirin Chewable) 81 mg PO DAILY [facility] Last Admin: 08/19/18 09:53 Dose: Not Given Calcitriol (Rocaltrol) 0.25 mcg PO TTS [facility] Last Admin: 08/19/18 09:59 Dose: Not Given Carvedilol (Coreg) 25 mg PO BID [facility] Last Admin: 08/18/18 17:14 Dose: Not Given Cinacalcet (Sensipar) 60 mg PO QPM [facility] Last Admin: 08/18/18 17:14 Dose: 60 mg Dextrose (Dextrose 50% Inj) 0 ml IV STAT PRN; Protocol PRN Reason: Hypoglycemia Protocol Last Admin: 08/19/18 09:06 Dose: 25 ml Dextrose (Glutose 15) 0 gm PO ONCE PRN; Protocol PRN Reason: Hypoglycemia Protocol Diltiazem HCl (Cardizem) 30 mg PO QID [facility] Last Admin: 08/15/18 14:03 Dose: Not Given Docusate Sodium (Colace) 100 mg PO DAILY PRN PRN Reason: FOR CONSTIPATION Epoetin Tom (Procrit) 4,000 unit IV TTS [facility] Last Admin: 08/16/18 22:18 Dose: 4,000 unit Ergocalciferol (Drisdol 50,000 Intl Units Cap) 1 cap PO Q7D [facility] Last Admin: 08/19/18 09:54 Dose: Not Given Famotidine (Pepcid) 20 mg PO DAILY [facility] Last Admin: 08/19/18 09:54 Dose: Not Given Fluticasone Propionate (Flonase) 1 spr TAE BID [facility] Last Admin: 08/19/18 09:54 Dose: Not Given Glucagon (Glucagen Diagnostic Kit) 0 mg IM STAT PRN; Protocol PRN Reason: Hypoglycemia Protocol Guaifenesin (Robitussin) 100 mg PO Q6 [facility] Last Admin: 08/19/18 06:10 Dose: 100 mg Hydralazine HCl (Apresoline) 50 mg PO Q8H [facility] Last Admin: 08/19/18 02:30 Dose: Not Given Hydromorphone HCl (Dilaudid) 0.5 mg IVP Q4H [facility] Last Admin: 08/19/18 08:30 Dose: Not Given Piperacillin Sod/Tazobactam Sod (Zosyn 2.25 Gm Iv Premix) 2.25 gm in 50 mls @ 100 mls/hr IVPB Q12 [facility]; Protocol Last Admin: 08/19/18 10:00 Dose: Not Given Insulin Glargine (Lantus) 8 unit SC [facility] Last Admin: 08/18/18 21:30 Dose: Not Given Insulin Human Regular (Novolin R) 0 unit SC [facility]; Protocol Last Admin: 08/19/18 07:18 Dose: Not Given Isosorbide Mononitrate (Imdur) 60 mg PO DAILY [facility] Last Admin: 08/19/18 09:54 Dose: Not Given Levetiracetam (Keppra) 500 mg PO BID [facility] Last Admin: 08/19/18 09:54 Dose: Not Given Losartan Potassium (Cozaar) 100 mg PO DAILY [facility] Last Admin: 08/19/18 09:53 Dose: Not Given Montelukast Sodium (Singulair) 10 mg PO DAILY [facility] Last Admin: 08/18/18 09:57 Dose: 10 mg Ranolazine (Ranexa) 500 mg PO BID [facility] Last Admin: 08/19/18 09:55 Dose: Not Given Rosuvastatin Calcium (Crestor) 10 mg PO [facility] Last Admin: 08/18/18 21:33 Dose: 10 mg Sertraline HCl (Zoloft) 50 mg PO DAILY [facility] Last Admin: 08/19/18 09:59 Dose: Not Given Sevelamer Carbonate (Renvela) 800 mg PO TIDCC [facility] Last Admin: 08/19/18 08:00 Dose: Not Given Tramadol HCl (Ultram) 50 mg PO Q6 PRN PRN Reason: Pain, moderate (4-7) Last Admin: 08/17/18 14:49 Dose: 50 mg Valproate Sodium (Depakene Cap) 250 mg PO QID [facility] Last Admin: 08/19/18 09:53 Dose: Not Given Vitamin B Complex/Vit C/Folic Acid (Nephro-Courtney) 1 tab PO 0800 [facility] Last Admin: 08/19/18 08:54 Dose: Not Given - Labs Labs: 08/16/18 14:28 08/16/18 14:28 - Constitutional Appears: In Acute Distress - Head Exam Head Exam: ATRAUMATIC - Eye Exam Eye Exam: Conjunctival injection - ENT Exam ENT Exam: Mucous Membranes Moist - Neck Exam Neck Exam: Full ROM - Respiratory Exam Respiratory Exam: Decreased Breath Sounds, Rales, Rhonchi, Wheezes, Respiratory Distress - Cardiovascular Exam Cardiovascular Exam: REGULAR RHYTHM - GI/Abdominal Exam GI & Abdominal Exam: Normal Bowel Sounds - Extremities Exam Additional comments: BILATERAL AMPUTATION - Back Exam Back Exam: CVA tenderness (L) - Neurological Exam Neurological Exam: Awake - Psychiatric Exam Psychiatric exam: Depressed - Skin Skin Exam: Dry Assessment and Plan - Assessment and Plan (Free Text) Assessment: PERSISITANT BRONCHITIS CHF WORSE HYPOTENSION COPD DM HYPOGLYCEAMIA HPOXEAMIA Plan: WILL TRANSFER TO ICU FOR CLOSE MONITERING
--- NOTE | 2018-08-19 14:48 | CP.PCM.PN ---
Subjective - Date & Time of Evaluation Date of Evaluation: 08/19/18 Time of Evaluation: 11:00 - Subjective Subjective: Nephrology Consultation Note: Assessment:worsening Pulmonary congestion, fluid overload, HTN urgency Pneumonia chronic chest pain, A flutter Diabetic chronic Kidney Disease (E11.22) Hypertensive Chronic Kidney Disease (I12.0) End stage renal disease (N18.6) dependence on hemodialysis (Z99.2) (TTS) via AVF Anemia (D64.9), Hyperphosphatemia (E83.39), Secondary Hyperparathyroidism (E21.1), HTN (I12.0) CAD s/p CABG, diastolic CHF, parox A flutter/fib, intra-cardiac thrombus, hx of Heparin induced thrombocytopenia, hx of seizure, blindness Plan: isolated UF tomorrow and plan for dialysis as per TTS schedule Continue with Nephrovite 1 tab/day. not on HANNAH with HD . PRBC As needed for anemia, last Hb 9.1 Continue with phos binders home dose; renvela. continue with calcitriol and sensipar BP control with meds as ordered. on ARB as losartan (will hold) and d/c norvasc as BP low side Glycemic control, Dialysis consistent diet Further work up/management as per primary team Dose meds/antibiotics for ESRD status. Avoid fleets enema/magnesium based laxatives. Thanks for allowing me to participate in care of your patient. Will follow patient with you. Please call if any Qs. had d/w team Dr Eric Temple Office: [phone] CC: SOB reason for consult: ESRD HPI: Pt is a 38 y/o transgender with hx of ESRD on hemodialysis (TTS) via permacath, chronic anemia, hyperphosphatemia, secondary hyperparathyroidism, Diabetes Mellitus, hypertension, CAD s/p CABG, diastolic CHF, pA flutter/fib, intra-cardiac thrombus, Heparin induced thrombocytopenia in past presented with complaints of SOB and chronic chest pain x 1 day. pt with recurrent and frequent hospitalizations for same complaints. missed hD yesterday reports fever 103 yesterday ROS: All other negative except as in HPI. has chronic chest pain, SOB. says I am coughing a lot Physical Examination: seen on HD General Appearance: in no acute respiratory distress, co-operative. on o2 via face mask Vitals reviewed and noted as below Head; Atraumatic, normocephalic ENT: no ulcers no thrush. Tongue is midline. Oropharynx: no rash or ulcers. EYES: Pt is blind both eyes Neck; supple no lymphadenopathy, no thyromegaly or bruit Lungs: normal respiratory rate/effort. Breath sounds bilateral diffuse crackles Heart: Normal rate. s1s2 normal. No rub or gallop. Extremities: no edema. No varicose veins. has b/l BKA. Neurological: Patient is awake follow commands no focal deficit Skin: Warm and dry. Normal turgor. No rash. Palpitation: Normal elasticity for age Abdomen: Abdomen is soft. Bowel sounds +. There is no abdominal tenderness, no guarding/rigidity or organomegaly Psych: limited insight and has normal affect/mood MSK: no joint tenderness or swelling. Digits and nails normal, no deformity : kidney or bladder not palpable Access: permacath Labs/imaging reviewed. Past medical history, past surgical history, family history, social history, allergy reviewed and noted as below Family Hx: no hx of CKD. Non contributory Objective - Vital Signs/Intake and Output Vital Signs (last 24 hours): Temp Pulse Resp BP Pulse Ox 98.3 F 94 H 20 139/72 96 08/19/18 13:42 08/19/18 13:42 08/19/18 13:42 08/19/18 13:42 08/19/18 13:42 Intake and Output: 08/19/18 08/19/18 06:59 18:59 Intake Total 120 Balance 120 - Medications Medications: Current Medications Albuterol/Ipratropium (Duoneb 3 Mg/0.5 Mg (3 Ml) Ud) 3 ml IH RQID [facility] Last Admin: 08/19/18 07:20 Dose: Not Given Amiodarone HCl (Cordarone) 200 mg PO DAILY [facility] Last Admin: 08/19/18 09:53 Dose: Not Given Apixaban (Eliquis) 2.5 mg PO BID [facility] Last Admin: 08/19/18 09:54 Dose: Not Given Aspirin (Aspirin Chewable) 81 mg PO DAILY [facility] Last Admin: 08/19/18 09:53 Dose: Not Given Calcitriol (Rocaltrol) 0.25 mcg PO TTS [facility] Last Admin: 08/19/18 09:59 Dose: Not Given Carvedilol (Coreg) 25 mg PO BID [facility] Last Admin: 08/18/18 17:14 Dose: Not Given Cinacalcet (Sensipar) 60 mg PO QPM [facility] Last Admin: 08/18/18 17:14 Dose: 60 mg Dextrose (Dextrose 50% Inj) 0 ml IV STAT PRN; Protocol PRN Reason: Hypoglycemia Protocol Last Admin: 08/19/18 09:06 Dose: 25 ml Dextrose (Glutose 15) 0 gm PO ONCE PRN; Protocol PRN Reason: Hypoglycemia Protocol Diltiazem HCl (Cardizem) 30 mg PO QID [facility] Last Admin: 08/15/18 14:03 Dose: Not Given Docusate Sodium (Colace) 100 mg PO DAILY PRN PRN Reason: FOR CONSTIPATION Epoetin Tom (Procrit) 4,000 unit IV TTS [facility] Last Admin: 08/19/18 10:38 Dose: 4,000 unit Ergocalciferol (Drisdol 50,000 Intl Units Cap) 1 cap PO Q7D [facility] Last Admin: 08/19/18 09:54 Dose: Not Given Famotidine (Pepcid) 20 mg PO DAILY [facility] Last Admin: 08/19/18 09:54 Dose: Not Given Fluticasone Propionate (Flonase) 1 spr TAE BID [facility] Last Admin: 08/19/18 09:54 Dose: Not Given Glucagon (Glucagen Diagnostic Kit) 0 mg IM STAT PRN; Protocol PRN Reason: Hypoglycemia Protocol Guaifenesin (Robitussin) 100 mg PO Q6 [facility] Last Admin: 08/19/18 12:40 Dose: 100 mg Hydralazine HCl (Apresoline) 50 mg PO Q8H [facility] Last Admin: 08/19/18 02:30 Dose: Not Given Hydromorphone HCl (Dilaudid) 0.5 mg IVP Q4H [facility] Last Admin: 08/19/18 12:30 Dose: Not Given Piperacillin Sod/Tazobactam Sod (Zosyn 2.25 Gm Iv Premix) 2.25 gm in 50 mls @ 100 mls/hr IVPB Q12 [facility]; Protocol Last Admin: 08/19/18 10:00 Dose: Not Given Insulin Glargine (Lantus) 8 unit SC HS [facility] Last Admin: 08/18/18 21:30 Dose: Not Given Insulin Human Regular (Novolin R) 0 unit SC [facility]; Protocol Last Admin: 08/19/18 11:30 Dose: Not Given Isosorbide Mononitrate (Imdur) 60 mg PO DAILY [facility] Last Admin: 08/19/18 09:54 Dose: Not Given Levetiracetam (Keppra) 500 mg PO BID [facility] Last Admin: 08/19/18 09:54 Dose: Not Given Montelukast Sodium (Singulair) 10 mg PO DAILY [facility] Last Admin: 08/18/18 09:57 Dose: 10 mg Ranolazine (Ranexa) 500 mg PO BID [facility] Last Admin: 08/19/18 09:55 Dose: Not Given Rosuvastatin Calcium (Crestor) 10 mg PO HS [facility] Last Admin: 08/18/18 21:33 Dose: 10 mg Sertraline HCl (Zoloft) 50 mg PO DAILY [facility] Last Admin: 08/19/18 09:59 Dose: Not Given Sevelamer Carbonate (Renvela) 800 mg PO TIDCC [facility] Last Admin: 08/19/18 12:00 Dose: Not Given Tramadol HCl (Ultram) 50 mg PO Q6 PRN PRN Reason: Pain, moderate (4-7) Last Admin: 08/17/18 14:49 Dose: 50 mg Valproate Sodium (Depakene Cap) 250 mg PO QID [facility] Last Admin: 08/19/18 13:03 Dose: Not Given Vitamin B Complex/Vit C/Folic Acid (Nephro-Courtney) 1 tab PO 0800 [facility] Last Admin: 08/19/18 08:54 Dose: Not Given - Labs Labs: 08/16/18 14:28 08/16/18 14:28
[2018-08-19 17:54] LABS: ALB/GLOB RATIO 1.1 (1.0-2.1); ALBUMIN 3.8 g/dL (3.5-5.0); CALCIUM 7.8 mg/dl (8.6-10.4)
--- NOTE | 2018-08-19 19:30 | CARD ---
APPROVED REPORT Date of service: 08/19/2018 EXAM: Two-dimensional and M-mode echocardiogram with Doppler and color Doppler. Other Information Quality : GoodRhythm : INDICATION LV Function:SystolicDiastolic Chest Pain DIALYSIS 2D DIMENSIONS IVSd1.5 (0.7-1.1cm)LVDd3.6 (3.9-5.9cm) PWd1.1 (0.7-1.1cm)LA Ewxtwx67 (18-58mL) LVDs3.0 (2.5-4.0cm)FS (%) 17.6 % LVEF (%)32.0 (>50%)LVEF (Quinn's)29.08 % M-Mode DIMENSIONS RVDd2.32 (2.1-3.2cm)Left Atrium (MM)3.96 (2.5-4.0cm) IVSd1.17 (0.7-1.1cm)Aortic Root2.32 (2.2-3.7cm) LVDd4.58 (4.0-5.6cm)Aortic Cusp Exc.1.79 (1.5-2.0cm) PWd1.22 (0.7-1.1cm)FS (%) 15 % LVDs3.88 (2.0-3.8cm)TAPSE10.69 cm LVEF (%)33 (>50%) Mitral Valve MV E Koavydio057.0cm/sMV A Pmcuhrrb248.6cm/sE/A ratio1.2 NDFR586.15 cm/s TDI Lateral E' Peak V10.09cm/sMedial E' Peak V6.83cm/sE/Lateral E'11.7 E/Medial E'17.3 Pulmonary Valve PV Peak Booclnii682.4cm/sPV Peak Grad.14mmHg Tricuspid Valve TR Peak Tvyniwkw406dq/sTR Peak Gr.[id number] LEFT VENTRICLE The left ventricle is normal size. There is mild concentric left ventricular hypertrophy. Left ventricle systolic function is moderately impaired. The Ejection Fraction is 35-40%. There is global hypokinesis of the left ventricle. Transmitral Doppler flow pattern is Grade II-pseudonormal filling dynamics. There is no ventricular septal defect visualized. RIGHT VENTRICLE The right ventricle is normal size. The right ventricular systolic function is normal. ATRIA The left atrium is mildly dilated. The right atrium is mildly dilated. AORTIC VALVE The aortic valve is mildly sclerotic. The aortic valve is tri-cuspid. No aortic regurgitation is present. There is no aortic valvular stenosis. MITRAL VALVE The mitral valve is normal in structure. There is no evidence of mitral valve prolapse. Mitral regurgitation is trace. TRICUSPID VALVE The tricuspid valve is normal in structure. There is moderate tricuspid regurgitation. Right ventricular systolic pressure is estimated at greater than 60 mmHg. There is severe pulmonary hypertension. PULMONIC VALVE The pulmonic valve is not well visualized. There is trace to mild pulmonic valvular regurgitation. GREAT VESSELS The aortic root is normal in size. The ascending aorta is normal in size. The IVC is normal in size and collapses >50% with inspiration. PERICARDIAL EFFUSION There is no pericardial effusion. <Conclusion> There is mild concentric left ventricular hypertrophy. Left ventricle systolic function is moderately impaired. The Ejection Fraction is 35-40%. There is global hypokinesis of the left ventricle. Transmitral Doppler flow pattern is Grade II-pseudonormal filling dynamics. Mitral regurgitation is trace. There is severe pulmonary hypertension.
[2018-08-19] MEDS: (Lantus) Insulin Glargine, Recombinant SC SCH (21:40)
[2018-08-20] MEDS: HYDROmorphone 0.5 mg/0.5 ml ISec IVP SCH ×3 (04:45→13:10)
[2018-08-20] MEDS: guaiFENesin 100 mg/5 ml Syrup UD PO SCH ×3 (05:38→17:44)
--- NOTE | 2018-08-20 06:31 | CON ---
DATE: 08/19/2018 HISTORY OF PRESENT ILLNESS: A 38-year-old male with chief complaint of shortness of breath, coughing, and weakness. The patient has a long history of congestive heart failure, asthma, and renal insufficiency. PHYSICAL EXAMINATION: GENERAL: The patient is awake, alert, and oriented. VITAL SIGNS: Temperature 98, pulse 90. HEENT: Within normal limits. NECK: Supple. CHEST: Symmetrical. Good air entry bilaterally. HEART: Regular. ABDOMEN: Soft. EXTREMITIES: Has amputation. IMPRESSION AND PLAN: The patient suffered from congestive heart failure and asthma. The patient is to get bedrest, oxygen, bronchodilators, antibiotics. Kimberly Liao MD
[2018-08-20] MEDS: Albuterol-Ipratrop 3 mg / 0.5 (3 ml) UD IH SCH ×4 (07:37→20:12)
[2018-08-20] MEDS: (Novolin R) Insulin Human Regular 100 units/ml vial SC SCH ×4 (08:11→21:35)
[2018-08-20] MEDS: Multivitamin Vitamin B Complex (Nephro-Vite) Tab PO SCH (08:12)
[2018-08-20] MEDS: Fluticasone Nasal 50 mcg/Spray NAS SCH ×2 (09:13→17:44)
[2018-08-20] MEDS: Ranolazine 500 mg Extended Release Tablets PO SCH ×2 (10:51→17:44)
[2018-08-20] MEDS: Piperacill/Tazo 2.25gm in Dex 2.25 GM/50 ML BAG IVPB SCH ×2 (10:52→21:35)
--- NOTE | 2018-08-20 11:36 | CP.PCM.PN ---
Subjective - Date & Time of Evaluation Date of Evaluation: 08/20/18 Time of Evaluation: 11:33 - Subjective Subjective: pt still coughing alot sob pain having dialysis now Objective - Vital Signs/Intake and Output Vital Signs (last 24 hours): Temp Pulse Resp BP Pulse Ox 98.3 F 71 18 101/56 L 100 08/20/18 09:55 08/20/18 09:55 08/20/18 09:55 08/20/18 10:55 08/20/18 09:55 Intake and Output: 08/20/18 08/20/18 06:59 18:59 Intake Total 50 Balance 50 - Medications Medications: Current Medications Albuterol/Ipratropium (Duoneb 3 Mg/0.5 Mg (3 Ml) Ud) 3 ml IH RQID [facility] Last Admin: 08/20/18 11:00 Dose: Not Given Amiodarone HCl (Cordarone) 200 mg PO DAILY [facility] Last Admin: 08/20/18 10:51 Dose: Not Given Apixaban (Eliquis) 2.5 mg PO BID [facility] Last Admin: 08/20/18 10:51 Dose: Not Given Aspirin (Aspirin Chewable) 81 mg PO DAILY [facility] Last Admin: 08/20/18 10:51 Dose: Not Given Calcitriol (Rocaltrol) 0.25 mcg PO TTS [facility] Last Admin: 08/19/18 09:59 Dose: Not Given Carvedilol (Coreg) 25 mg PO BID [facility] Last Admin: 08/18/18 17:14 Dose: Not Given Cinacalcet (Sensipar) 60 mg PO QPM [facility] Last Admin: 08/19/18 17:39 Dose: 60 mg Dextrose (Dextrose 50% Inj) 0 ml IV STAT PRN; Protocol PRN Reason: Hypoglycemia Protocol Last Admin: 08/19/18 09:06 Dose: 25 ml Dextrose (Glutose 15) 0 gm PO ONCE PRN; Protocol PRN Reason: Hypoglycemia Protocol Diltiazem HCl (Cardizem) 30 mg PO QID [facility] Last Admin: 08/15/18 14:03 Dose: Not Given Docusate Sodium (Colace) 100 mg PO DAILY PRN PRN Reason: FOR CONSTIPATION Epoetin Tom (Procrit) 4,000 unit IV TTS [facility] Last Admin: 08/19/18 10:38 Dose: 4,000 unit Ergocalciferol (Drisdol 50,000 Intl Units Cap) 1 cap PO Q7D [facility] Last Admin: 08/19/18 09:54 Dose: Not Given Famotidine (Pepcid) 20 mg PO DAILY [facility] Last Admin: 08/20/18 09:12 Dose: 20 mg Fluticasone Propionate (Flonase) 1 spr TAE BID [facility] Last Admin: 08/20/18 09:13 Dose: 1 spr Glucagon (Glucagen Diagnostic Kit) 0 mg IM STAT PRN; Protocol PRN Reason: Hypoglycemia Protocol Guaifenesin (Robitussin) 100 mg PO Q6 [facility] Last Admin: 08/20/18 05:38 Dose: Not Given Hydralazine HCl (Apresoline) 50 mg PO Q8H [facility] Last Admin: 08/19/18 02:30 Dose: Not Given Hydromorphone HCl (Dilaudid) 0.5 mg IVP Q4H [facility] Last Admin: 08/20/18 08:30 Dose: Not Given Piperacillin Sod/Tazobactam Sod (Zosyn 2.25 Gm Iv Premix) 2.25 gm in 50 mls @ 100 mls/hr IVPB Q12 [facility]; Protocol Last Admin: 08/20/18 10:52 Dose: Not Given Insulin Glargine (Lantus) 8 unit SC [facility] Last Admin: 08/19/18 21:40 Dose: Not Given Insulin Human Regular (Novolin R) 0 unit SC [facility]; Protocol Last Admin: 08/20/18 08:11 Dose: 2 units Isosorbide Mononitrate (Imdur) 60 mg PO DAILY [facility] Last Admin: 08/20/18 10:51 Dose: Not Given Levetiracetam (Keppra) 500 mg PO BID [facility] Last Admin: 08/20/18 10:51 Dose: Not Given Montelukast Sodium (Singulair) 10 mg PO DAILY [facility] Last Admin: 08/18/18 09:57 Dose: 10 mg Ranolazine (Ranexa) 500 mg PO BID [facility] Last Admin: 08/20/18 10:51 Dose: Not Given Rosuvastatin Calcium (Crestor) 10 mg PO HS [facility] Last Admin: 08/19/18 21:25 Dose: 10 mg Sertraline HCl (Zoloft) 50 mg PO DAILY [facility] Last Admin: 08/20/18 10:51 Dose: Not Given Sevelamer Carbonate (Renvela) 800 mg PO TIDCC [facility] Last Admin: 08/20/18 08:11 Dose: 800 mg Tramadol HCl (Ultram) 50 mg PO Q6 PRN PRN Reason: Pain, moderate (4-7) Last Admin: 08/17/18 14:49 Dose: 50 mg Valproate Sodium (Depakene Cap) 250 mg PO QID [facility] Last Admin: 08/20/18 10:51 Dose: Not Given Vitamin B Complex/Vit C/Folic Acid (Nephro-Courtney) 1 tab PO 0800 [facility] Last Admin: 08/20/18 08:12 Dose: 1 tab - Labs Labs: 08/16/18 14:28 08/19/18 17:07 - Constitutional Appears: In Acute Distress - Head Exam Head Exam: ATRAUMATIC - Eye Exam Eye Exam: Conjunctival injection, Normal appearance Pupil Exam: NORMAL ACCOMODATION Additional comments: legaly blind - ENT Exam ENT Exam: Mucous Membranes Moist - Neck Exam Neck Exam: Full ROM - Respiratory Exam Respiratory Exam: Decreased Breath Sounds, Rales - Cardiovascular Exam Cardiovascular Exam: REGULAR RHYTHM - GI/Abdominal Exam GI & Abdominal Exam: Normal Bowel Sounds - Back Exam Back Exam: CVA tenderness (L) - Neurological Exam Neurological Exam: Awake, Oriented x3 - Psychiatric Exam Psychiatric exam: Normal Affect - Skin Skin Exam: Pallor Assessment and Plan - Assessment and Plan (Free Text) Assessment: ac bronchitis copd dm erf chf Plan: cont as per orders
--- NOTE | 2018-08-20 16:34 | CP.PCM.PN ---
Subjective - Date & Time of Evaluation Date of Evaluation: 08/20/18 Time of Evaluation: 10:00 - Subjective Subjective: Nephrology Consultation Note: Assessment: stable Pulmonary congestion, fluid overload, HTN urgency Pneumonia chronic chest pain, A flutter Diabetic chronic Kidney Disease (E11.22) Hypertensive Chronic Kidney Disease (I12.0) End stage renal disease (N18.6) dependence on hemodialysis (Z99.2) (TTS) via AVF Anemia (D64.9), Hyperphosphatemia (E83.39), Secondary Hyperparathyroidism (E21.1), HTN (I12.0) CAD s/p CABG, diastolic CHF, parox A flutter/fib, intra-cardiac thrombus, hx of Heparin induced thrombocytopenia, hx of seizure, blindness Plan: isolated UF today and plan for dialysis as per TTS schedule Continue with Nephrovite 1 tab/day. not on HANNAH with HD . PRBC As needed for anemia, last Hb 9.1 Continue with phos binders home dose; renvela. continue with calcitriol and s ensipar BP control with meds as ordered. on ARB as losartan (will hold) and d/c norvasc as BP low side Glycemic control, Dialysis consistent diet Further work up/management as per primary team Dose meds/antibiotics for ESRD status. Avoid fleets enema/magnesium based laxatives. Thanks for allowing me to participate in care of your patient. Will follow patient with you. Please call if any Qs. had d/w team Dr Eric Temple Office: [phone] CC: SOB reason for consult: ESRD HPI: Pt is a 38 y/o transgender with hx of ESRD on hemodialysis (TTS) via permacath, chronic anemia, hyperphosphatemia, secondary hyperparathyroidism, Diabetes Mellitus, hypertension, CAD s/p CABG, diastolic CHF, pA flutter/fib, intra-cardiac thrombus, Heparin induced thrombocytopenia in past presented with complaints of SOB and chronic chest pain x 1 day. pt with recurrent and frequent hospitalizations for same complaints. missed hD yesterday reports fever 103 yesterday ROS: All other negative except as in HPI. has chronic chest pain, SOB. says I am coughing a lot Physical Examination: seen on HD General Appearance: in no acute respiratory distress, co-operative. on o2 via face mask Vitals reviewed and noted as below Head; Atraumatic, normocephalic ENT: no ulcers no thrush. Tongue is midline. Oropharynx: no rash or ulcers. EYES: Pt is blind both eyes Neck; supple no lymphadenopathy, no thyromegaly or bruit Lungs: normal respiratory rate/effort. Breath sounds bilateral diffuse crackles Heart: Normal rate. s1s2 normal. No rub or gallop. Extremities: no edema. No varicose veins. has b/l BKA. Neurological: Patient is awake follow commands no focal deficit Skin: Warm and dry. Normal turgor. No rash. Palpitation: Normal elasticity for age Abdomen: Abdomen is soft. Bowel sounds +. There is no abdominal tenderness, no guarding/rigidity or organomegaly Psych: limited insight and has normal affect/mood MSK: no joint tenderness or swelling. Digits and nails normal, no deformity : kidney or bladder not palpable Access: permacath Labs/imaging reviewed. Past medical history, past surgical history, family history, social history, allergy reviewed and noted as below Family Hx: no hx of CKD. Non contributory Objective - Vital Signs/Intake and Output Vital Signs (last 24 hours): Temp Pulse Resp BP Pulse Ox 97.9 F 69 20 97/51 L 96 08/20/18 15:44 08/20/18 15:44 08/20/18 15:44 08/20/18 15:44 08/20/18 15:44 Intake and Output: 08/20/18 08/20/18 06:59 18:59 Intake Total 50 Balance 50 - Medications Medications: Current Medications Albuterol/Ipratropium (Duoneb 3 Mg/0.5 Mg (3 Ml) Ud) 3 ml IH RQID [facility] Last Admin: 08/20/18 16:17 Dose: Not Given Amiodarone HCl (Cordarone) 200 mg PO DAILY [facility] Last Admin: 08/20/18 10:51 Dose: Not Given Apixaban (Eliquis) 2.5 mg PO BID [facility] Last Admin: 08/20/18 10:51 Dose: Not Given Aspirin (Aspirin Chewable) 81 mg PO DAILY [facility] Last Admin: 08/20/18 10:51 Dose: Not Given Calcitriol (Rocaltrol) 0.25 mcg PO TTS [facility] Last Admin: 08/19/18 09:59 Dose: Not Given Carvedilol (Coreg) 25 mg PO BID [facility] Last Admin: 08/18/18 17:14 Dose: Not Given Cinacalcet (Sensipar) 60 mg PO QPM [facility] Last Admin: 08/19/18 17:39 Dose: 60 mg Dextrose (Dextrose 50% Inj) 0 ml IV STAT PRN; Protocol PRN Reason: Hypoglycemia Protocol Last Admin: 08/19/18 09:06 Dose: 25 ml Dextrose (Glutose 15) 0 gm PO ONCE PRN; Protocol PRN Reason: Hypoglycemia Protocol Diltiazem HCl (Cardizem) 30 mg PO QID [facility] Last Admin: 08/15/18 14:03 Dose: Not Given Docusate Sodium (Colace) 100 mg PO DAILY PRN PRN Reason: FOR CONSTIPATION Epoetin Tom (Procrit) 4,000 unit IV TTS [facility] Last Admin: 08/19/18 10:38 Dose: 4,000 unit Ergocalciferol (Drisdol 50,000 Intl Units Cap) 1 cap PO Q7D [facility] Last Admin: 08/19/18 09:54 Dose: Not Given Famotidine (Pepcid) 20 mg PO DAILY [facility] Last Admin: 08/20/18 09:12 Dose: 20 mg Fluticasone Propionate (Flonase) 1 spr TAE BID [facility] Last Admin: 08/20/18 09:13 Dose: 1 spr Glucagon (Glucagen Diagnostic Kit) 0 mg IM STAT PRN; Protocol PRN Reason: Hypoglycemia Protocol Guaifenesin (Robitussin) 100 mg PO Q6 [facility] Last Admin: 08/20/18 13:17 Dose: 100 mg Heparin Sodium (Porcine) (Heparin) 3,700 units IVP [facility] Hydralazine HCl (Apresoline) 50 mg PO Q8H [facility] Last Admin: 08/19/18 02:30 Dose: Not Given Hydromorphone HCl (Dilaudid) 0.5 mg IVP Q4H [facility] Last Admin: 08/20/18 13:10 Dose: Not Given Piperacillin Sod/Tazobactam Sod (Zosyn 2.25 Gm Iv Premix) 2.25 gm in 50 mls @ 100 mls/hr IVPB Q12 [facility]; Protocol Last Admin: 08/20/18 10:52 Dose: Not Given Insulin Glargine (Lantus) 8 unit SC HS [facility] Last Admin: 08/19/18 21:40 Dose: Not Given Insulin Human Regular (Novolin R) 0 unit SC [facility]; Protocol Last Admin: 08/20/18 13:19 Dose: Not Given Isosorbide Mononitrate (Imdur) 60 mg PO DAILY [facility] Last Admin: 08/20/18 10:51 Dose: Not Given Levetiracetam (Keppra) 500 mg PO BID [facility] Last Admin: 08/20/18 10:51 Dose: Not Given Montelukast Sodium (Singulair) 10 mg PO DAILY [facility] Last Admin: 08/18/18 09:57 Dose: 10 mg Ranolazine (Ranexa) 500 mg PO BID [facility] Last Admin: 08/20/18 10:51 Dose: Not Given Rosuvastatin Calcium (Crestor) 10 mg PO HS [facility] Last Admin: 08/19/18 21:25 Dose: 10 mg Sertraline HCl (Zoloft) 50 mg PO DAILY [facility] Last Admin: 08/20/18 10:51 Dose: Not Given Sevelamer Carbonate (Renvela) 800 mg PO TIDCC [facility] Last Admin: 08/20/18 13:16 Dose: 800 mg Tramadol HCl (Ultram) 50 mg PO Q6 PRN PRN Reason: Pain, moderate (4-7) Last Admin: 08/17/18 14:49 Dose: 50 mg Valproate Sodium (Depakene Cap) 250 mg PO QID [facility] Last Admin: 08/20/18 13:17 Dose: 250 mg Vitamin B Complex/Vit C/Folic Acid (Nephro-Courtney) 1 tab PO 0800 [facility] Last Admin: 08/20/18 08:12 Dose: 1 tab - Labs Labs: 08/16/18 14:28 08/19/18 17:07
--- NOTE | 2018-08-20 17:24 | CP.PCM.PN ---
Subjective - Date & Time of Evaluation Date of Evaluation: 08/20/18 Time of Evaluation: 17:22 - Subjective Subjective: Events reviewed. Objective - Vital Signs/Intake and Output Vital Signs (last 24 hours): Temp Pulse Resp BP Pulse Ox 97.9 F 69 20 97/51 L 96 08/20/18 15:44 08/20/18 15:44 08/20/18 15:44 08/20/18 15:44 08/20/18 15:44 Intake and Output: 08/20/18 08/20/18 06:59 18:59 Intake Total 50 Balance 50 - Medications Medications: Current Medications Albuterol/Ipratropium (Duoneb 3 Mg/0.5 Mg (3 Ml) Ud) 3 ml IH RQID [facility] Last Admin: 08/20/18 16:17 Dose: Not Given Amiodarone HCl (Cordarone) 200 mg PO DAILY [facility] Last Admin: 08/20/18 10:51 Dose: Not Given Apixaban (Eliquis) 2.5 mg PO BID [facility] Last Admin: 08/20/18 10:51 Dose: Not Given Aspirin (Aspirin Chewable) 81 mg PO DAILY [facility] Last Admin: 08/20/18 10:51 Dose: Not Given Calcitriol (Rocaltrol) 0.25 mcg PO TTS [facility] Last Admin: 08/19/18 09:59 Dose: Not Given Carvedilol (Coreg) 25 mg PO BID [facility] Last Admin: 08/18/18 17:14 Dose: Not Given Cinacalcet (Sensipar) 60 mg PO QPM [facility] Last Admin: 08/19/18 17:39 Dose: 60 mg Dextrose (Dextrose 50% Inj) 0 ml IV STAT PRN; Protocol PRN Reason: Hypoglycemia Protocol Last Admin: 08/19/18 09:06 Dose: 25 ml Dextrose (Glutose 15) 0 gm PO ONCE PRN; Protocol PRN Reason: Hypoglycemia Protocol Diltiazem HCl (Cardizem) 30 mg PO QID [facility] Last Admin: 08/15/18 14:03 Dose: Not Given Docusate Sodium (Colace) 100 mg PO DAILY PRN PRN Reason: FOR CONSTIPATION Epoetin Tom (Procrit) 4,000 unit IV TTS [facility] Last Admin: 08/19/18 10:38 Dose: 4,000 unit Ergocalciferol (Drisdol 50,000 Intl Units Cap) 1 cap PO Q7D [facility] Last Admin: 08/19/18 09:54 Dose: Not Given Famotidine (Pepcid) 20 mg PO DAILY [facility] Last Admin: 08/20/18 09:12 Dose: 20 mg Fluticasone Propionate (Flonase) 1 spr TAE BID [facility] Last Admin: 08/20/18 09:13 Dose: 1 spr Glucagon (Glucagen Diagnostic Kit) 0 mg IM STAT PRN; Protocol PRN Reason: Hypoglycemia Protocol Guaifenesin (Robitussin) 100 mg PO Q6 [facility] Last Admin: 08/20/18 13:17 Dose: 100 mg Heparin Sodium (Porcine) (Heparin) 3,700 units IVP [facility] Hydralazine HCl (Apresoline) 50 mg PO Q8H [facility] Last Admin: 08/19/18 02:30 Dose: Not Given Hydromorphone HCl (Dilaudid) 0.5 mg IVP Q6H PRN PRN Reason: Pain, severe (8-10) Piperacillin Sod/Tazobactam Sod (Zosyn 2.25 Gm Iv Premix) 2.25 gm in 50 mls @ 100 mls/hr IVPB Q12 [facility]; Protocol Last Admin: 08/20/18 10:52 Dose: Not Given Insulin Glargine (Lantus) 8 unit SC [facility] Last Admin: 08/19/18 21:40 Dose: Not Given Insulin Human Regular (Novolin R) 0 unit SC [facility]; Protocol Last Admin: 08/20/18 13:19 Dose: Not Given Isosorbide Mononitrate (Imdur) 60 mg PO DAILY [facility] Last Admin: 08/20/18 10:51 Dose: Not Given Levetiracetam (Keppra) 500 mg PO BID [facility] Last Admin: 08/20/18 10:51 Dose: Not Given Montelukast Sodium (Singulair) 10 mg PO DAILY [facility] Last Admin: 08/18/18 09:57 Dose: 10 mg Ranolazine (Ranexa) 500 mg PO BID [facility] Last Admin: 08/20/18 10:51 Dose: Not Given Rosuvastatin Calcium (Crestor) 10 mg PO HS [facility] Last Admin: 08/19/18 21:25 Dose: 10 mg Sertraline HCl (Zoloft) 50 mg PO DAILY [facility] Last Admin: 08/20/18 10:51 Dose: Not Given Sevelamer Carbonate (Renvela) 800 mg PO TIDCC [facility] Last Admin: 08/20/18 13:16 Dose: 800 mg Tramadol HCl (Ultram) 50 mg PO Q6 PRN PRN Reason: Pain, moderate (4-7) Last Admin: 08/17/18 14:49 Dose: 50 mg Valproate Sodium (Depakene Cap) 250 mg PO QID [facility] Last Admin: 08/20/18 13:17 Dose: 250 mg Vitamin B Complex/Vit C/Folic Acid (Nephro-Courtney) 1 tab PO 0800 [facility] Last Admin: 08/20/18 08:12 Dose: 1 tab - Labs Labs: 08/16/18 14:28 08/19/18 17:07 Assessment and Plan - Assessment and Plan (Free Text) Assessment: - Constitutional Appears: Chronically Ill - Head Exam Head Exam: ATRAUMATIC, NORMAL INSPECTION, NORMOCEPHALIC - Eye Exam Eye Exam: absent: Normal appearance (legally blind), Scleral icterus - ENT Exam ENT Exam: Mucous Membranes Moist, Normal Oropharynx - Neck Exam Neck Exam: Full ROM, Normal Inspection. absent: Thyromegaly - Respiratory Exam Respiratory Exam: Rhonchi, Wheezes. absent: Accessory Muscle Use - Cardiovascular Exam Cardiovascular Exam: REGULAR RHYTHM, +S1, +S2, Murmur - GI/Abdominal Exam GI & Abdominal Exam: Soft, Normal Bowel Sounds. absent: Tenderness - Extremities Exam Extremities Exam: absent: Normal Inspection (b/l BKA stump non-infected appeari ng) Assessment and Plan - Assessment and Plan (Free Text) Assessment: 38 year old woman transgender chest pain, check serial troponin an EKG ESRD on HD PVD severe s/p bilateral BKA's, now with skin breadown in the amputation sites m onitor DM is labile and brittle on insulin HTN is chornic and stable on coreg, norvasc, Hydralazine and losartan Atrial flutter/fibrillaiton suggest eliquis 5mg po BID for CVA prophylaxsis and for prior intracardiac thrombus, amiodarone for rhythm control Angina s/p CABG now with failed grafts and multiple PCI now non revascularizable, ranexa and imdur for chronic stable angina, on plavix, ASA and eliquis I would d/c plavix due to risk of bleeding and continue DOAC at 5mg BID SOB/Cough/URI and infiltrate on CXR: on ABX low BP: monitor for septic shock, ICU declined admission to ICU
[2018-08-20] MEDS: HYDROmorphone 0.5 mg/0.5 ml ISec IVP PRN (17:51)
[2018-08-20] MEDS: (Lantus) Insulin Glargine, Recombinant SC SCH (21:34)
[2018-08-21] MEDS: HYDROmorphone 0.5 mg/0.5 ml ISec IVP PRN ×2 (00:44→09:43)
[2018-08-21] MEDS: guaiFENesin 100 mg/5 ml Syrup UD PO SCH ×5 (05:55→23:51)
[2018-08-21] MEDS: (Novolin R) Insulin Human Regular 100 units/ml vial SC SCH ×4 (07:52→21:48)
[2018-08-21] MEDS: Albuterol-Ipratrop 3 mg / 0.5 (3 ml) UD IH SCH ×3 (07:59→21:00)
[2018-08-21] MEDS: Ranolazine 500 mg Extended Release Tablets PO SCH ×2 (09:43→18:08)
[2018-08-21] MEDS: Multivitamin Vitamin B Complex (Nephro-Vite) Tab PO SCH (09:43)
[2018-08-21] MEDS: Fluticasone Nasal 50 mcg/Spray NAS SCH ×2 (09:44→18:09)
[2018-08-21] MEDS: Piperacill/Tazo 2.25gm in Dex 2.25 GM/50 ML BAG IVPB SCH ×2 (11:47→21:37)
--- NOTE | 2018-08-21 13:40 | CP.PCM.PN ---
Subjective - Date & Time of Evaluation Date of Evaluation: 08/21/18 Time of Evaluation: 13:40 - Subjective Subjective: Nephrology Consultation Note: Assessment: stable Pulmonary congestion, fluid overload, HTN urgency Pneumonia chronic chest pain, A flutter Diabetic chronic Kidney Disease (E11.22) Hypertensive Chronic Kidney Disease (I12.0) End stage renal disease (N18.6) dependence on hemodialysis (Z99.2) (TTS) via AVF Anemia (D64.9), Hyperphosphatemia (E83.39), Secondary Hyperparathyroidism (E21.1), HTN (I12.0) CAD s/p CABG, diastolic CHF, parox A flutter/fib, intra-cardiac thrombus, hx of Heparin induced thrombocytopenia, hx of seizure, blindness Plan: plan for dialysis as per TTS schedule Continue with Nephrovite 1 tab/day. not on HANNAH with HD . PRBC As needed for anemia, last Hb 9.1 Continue with phos binders home dose; renvela. continue with calcitriol and sensipar BP control with meds as ordered. on ARB as losartan (will hold) and d/c norvasc as BP low side Glycemic control, Dialysis consistent diet Further work up/management as per primary team Dose meds/antibiotics for ESRD status. Avoid fleets enema/magnesium based laxatives. Thanks for allowing me to participate in care of your patient. Will follow patient with you. Please call if any Qs. had d/w team Dr Eric Temple Office: [phone] CC: SOB reason for consult: ESRD HPI: Pt is a 38 y/o transgender with hx of ESRD on hemodialysis (TTS) via permacath, chronic anemia, hyperphosphatemia, secondary hyperparathyroidism, Diabetes Mellitus, hypertension, CAD s/p CABG, diastolic CHF, pA flutter/fib, intra-cardiac thrombus, Heparin induced thrombocytopenia in past presented with complaints of SOB and chronic chest pain x 1 day. pt with recurrent and frequent hospitalizations for same complaints. missed hD yesterday reports fever 103 yesterday ROS: All other negative except as in HPI. has chronic chest pain, improved SOB. says I am coughing less Physical Examination: General Appearance: in no acute respiratory distress, co-operative. on o2 via NC Head; Atraumatic, normocephalic ENT: no ulcers no thrush. Tongue is midline. Oropharynx: no rash or ulcers. EYES: Pt is blind both eyes Neck; supple no lymphadenopathy, no thyromegaly or bruit Lungs: normal respiratory rate/effort. Breath sounds bilateral clearer, still has crackels at base Heart: Normal rate. s1s2 normal. No rub or gallop. Extremities: no edema. No varicose veins. has b/l BKA. Neurological: Patient is awake follow commands no focal deficit Skin: Warm and dry. Normal turgor. No rash. Palpitation: Normal elasticity for age Abdomen: Abdomen is soft. Bowel sounds +. There is no abdominal tenderness, no guarding/rigidity or organomegaly Psych: limited insight and has normal affect/mood MSK: no joint tenderness or swelling. Digits and nails normal, no deformity : kidney or bladder not palpable Access: permacath Labs/imaging reviewed. Past medical history, past surgical history, family history, social history, allergy reviewed and noted as below Family Hx: no hx of CKD. Non contributory Objective - Vital Signs/Intake and Output Vital Signs (last 24 hours): Temp Pulse Resp BP Pulse Ox 97.5 F L 60 20 124/51 L 98 08/21/18 07:00 08/21/18 08:11 08/21/18 07:00 08/21/18 09:46 08/21/18 07:00 - Medications Medications: Current Medications Albuterol/Ipratropium (Duoneb 3 Mg/0.5 Mg (3 Ml) Ud) 3 ml IH RQID [facility] Last Admin: 08/21/18 10:59 Dose: Not Given Amiodarone HCl (Cordarone) 200 mg PO DAILY [facility] Last Admin: 08/21/18 09:43 Dose: 200 mg Apixaban (Eliquis) 2.5 mg PO BID [facility] Last Admin: 08/21/18 09:43 Dose: 2.5 mg Aspirin (Aspirin Chewable) 81 mg PO DAILY [facility] Last Admin: 08/21/18 09:43 Dose: 81 mg Calcitriol (Rocaltrol) 0.25 mcg PO TTS [facility] Last Admin: 08/21/18 09:43 Dose: 0.25 mcg Carvedilol (Coreg) 25 mg PO BID [facility] Last Admin: 08/18/18 17:14 Dose: Not Given Cinacalcet (Sensipar) 60 mg PO QPM [facility] Last Admin: 08/20/18 18:06 Dose: 60 mg Dextrose (Dextrose 50% Inj) 0 ml IV STAT PRN; Protocol PRN Reason: Hypoglycemia Protocol Last Admin: 08/19/18 09:06 Dose: 25 ml Dextrose (Glutose 15) 0 gm PO ONCE PRN; Protocol PRN Reason: Hypoglycemia Protocol Diltiazem HCl (Cardizem) 30 mg PO QID [facility] Last Admin: 08/15/18 14:03 Dose: Not Given Docusate Sodium (Colace) 100 mg PO DAILY PRN PRN Reason: FOR CONSTIPATION Epoetin Tom (Procrit) 4,000 unit IV TTS [facility] Last Admin: 08/19/18 10:38 Dose: 4,000 unit Ergocalciferol (Drisdol 50,000 Intl Units Cap) 1 cap PO Q7D [facility] Last Admin: 08/19/18 09:54 Dose: Not Given Famotidine (Pepcid) 20 mg PO DAILY [facility] Last Admin: 08/21/18 09:43 Dose: 20 mg Fluticasone Propionate (Flonase) 1 spr TAE BID [facility] Last Admin: 08/21/18 09:44 Dose: 1 spr Glucagon (Glucagen Diagnostic Kit) 0 mg IM STAT PRN; Protocol PRN Reason: Hypoglycemia Protocol Guaifenesin (Robitussin) 100 mg PO Q6 [facility] Last Admin: 08/21/18 11:47 Dose: 100 mg Heparin Sodium (Porcine) (Heparin) 3,700 units IVP TTS [facility] Hydralazine HCl (Apresoline) 50 mg PO Q8H [facility] Last Admin: 08/19/18 02:30 Dose: Not Given Hydromorphone HCl (Dilaudid) 0.5 mg IVP Q6H PRN PRN Reason: Pain, severe (8-10) Last Admin: 08/21/18 09:43 Dose: 0.5 mg Piperacillin Sod/Tazobactam Sod (Zosyn 2.25 Gm Iv Premix) 2.25 gm in 50 mls @ 100 mls/hr IVPB Q12 [facility]; Protocol Last Admin: 08/21/18 11:47 Dose: 100 mls/hr Insulin Glargine (Lantus) 8 unit SC HS [facility] Last Admin: 08/20/18 21:34 Dose: 8 u Insulin Human Regular (Novolin R) 0 unit SC [facility]; Protocol Last Admin: 08/21/18 11:17 Dose: Not Given Isosorbide Mononitrate (Imdur) 60 mg PO DAILY [facility] Last Admin: 08/21/18 09:49 Dose: Not Given Levetiracetam (Keppra) 500 mg PO BID [facility] Last Admin: 08/21/18 09:43 Dose: 500 mg Montelukast Sodium (Singulair) 10 mg PO DAILY [facility] Last Admin: 08/18/18 09:57 Dose: 10 mg Ranolazine (Ranexa) 500 mg PO BID [facility] Last Admin: 08/21/18 09:43 Dose: 500 mg Rosuvastatin Calcium (Crestor) 10 mg PO HS [facility] Last Admin: 08/20/18 21:35 Dose: 10 mg Sertraline HCl (Zoloft) 50 mg PO DAILY [facility] Last Admin: 08/21/18 09:43 Dose: 50 mg Sevelamer Carbonate (Renvela) 800 mg PO TIDCC [facility] Last Admin: 08/21/18 11:47 Dose: 800 mg Tramadol HCl (Ultram) 50 mg PO Q6 PRN PRN Reason: Pain, moderate (4-7) Last Admin: 08/17/18 14:49 Dose: 50 mg Valproate Sodium (Depakene Cap) 250 mg PO QID [facility] Last Admin: 08/21/18 09:48 Dose: 250 mg Vitamin B Complex/Vit C/Folic Acid (Nephro-Courtney) 1 tab PO 0800 [facility] Last Admin: 08/21/18 09:43 Dose: 1 tab - Labs Labs: 08/16/18 14:28 08/19/18 17:07
--- NOTE | 2018-08-21 17:32 | CP.PCM.PN ---
Subjective - Date & Time of Evaluation Date of Evaluation: 08/21/18 Time of Evaluation: 17:30 - Subjective Subjective: seen today having dialysis less cough Objective - Vital Signs/Intake and Output Vital Signs (last 24 hours): Temp Pulse Resp BP Pulse Ox 97.2 F L 52 L 16 107/54 L 100 08/21/18 16:35 08/21/18 16:35 08/21/18 16:35 08/21/18 16:35 08/21/18 16:35 Intake and Output: 08/21/18 08/21/18 06:59 18:59 Intake Total 750 Balance 750 - Medications Medications: Current Medications Albuterol/Ipratropium (Duoneb 3 Mg/0.5 Mg (3 Ml) Ud) 3 ml IH RQID [facility] Last Admin: 08/21/18 10:59 Dose: Not Given Amiodarone HCl (Cordarone) 200 mg PO DAILY [facility] Last Admin: 08/21/18 09:43 Dose: 200 mg Apixaban (Eliquis) 2.5 mg PO BID [facility] Last Admin: 08/21/18 09:43 Dose: 2.5 mg Aspirin (Aspirin Chewable) 81 mg PO DAILY [facility] Last Admin: 08/21/18 09:43 Dose: 81 mg Calcitriol (Rocaltrol) 0.25 mcg PO TTS [facility] Last Admin: 08/21/18 09:43 Dose: 0.25 mcg Carvedilol (Coreg) 25 mg PO BID [facility] Last Admin: 08/18/18 17:14 Dose: Not Given Cinacalcet (Sensipar) 60 mg PO QPM [facility] Last Admin: 08/20/18 18:06 Dose: 60 mg Dextrose (Dextrose 50% Inj) 0 ml IV STAT PRN; Protocol PRN Reason: Hypoglycemia Protocol Last Admin: 08/19/18 09:06 Dose: 25 ml Dextrose (Glutose 15) 0 gm PO ONCE PRN; Protocol PRN Reason: Hypoglycemia Protocol Diltiazem HCl (Cardizem) 30 mg PO QID [facility] Last Admin: 08/15/18 14:03 Dose: Not Given Docusate Sodium (Colace) 100 mg PO DAILY PRN PRN Reason: FOR CONSTIPATION Epoetin Tom (Procrit) 4,000 unit IV TTS [facility] Last Admin: 08/19/18 10:38 Dose: 4,000 unit Ergocalciferol (Drisdol 50,000 Intl Units Cap) 1 cap PO Q7D [facility] Last Admin: 08/19/18 09:54 Dose: Not Given Famotidine (Pepcid) 20 mg PO DAILY [facility] Last Admin: 08/21/18 09:43 Dose: 20 mg Fluticasone Propionate (Flonase) 1 spr TAE BID [facility] Last Admin: 08/21/18 09:44 Dose: 1 spr Glucagon (Glucagen Diagnostic Kit) 0 mg IM STAT PRN; Protocol PRN Reason: Hypoglycemia Protocol Guaifenesin (Robitussin) 100 mg PO Q6 [facility] Last Admin: 08/21/18 11:47 Dose: 100 mg Heparin Sodium (Porcine) (Heparin) 3,700 units IVP TTS [facility] Last Admin: 08/21/18 16:16 Dose: 3,700 units Hydralazine HCl (Apresoline) 50 mg PO Q8H [facility] Last Admin: 08/19/18 02:30 Dose: Not Given Piperacillin Sod/Tazobactam Sod (Zosyn 2.25 Gm Iv Premix) 2.25 gm in 50 mls @ 100 mls/hr IVPB Q12 [facility]; Protocol Last Admin: 08/21/18 11:47 Dose: 100 mls/hr Insulin Glargine (Lantus) 8 unit SC [facility] Last Admin: 08/20/18 21:34 Dose: 8 u Insulin Human Regular (Novolin R) 0 unit SC [facility]; Protocol Last Admin: 08/21/18 11:17 Dose: Not Given Isosorbide Mononitrate (Imdur) 60 mg PO DAILY [facility] Last Admin: 08/21/18 09:49 Dose: Not Given Levetiracetam (Keppra) 500 mg PO BID [facility] Last Admin: 08/21/18 09:43 Dose: 500 mg Montelukast Sodium (Singulair) 10 mg PO DAILY [facility] Last Admin: 08/18/18 09:57 Dose: 10 mg Ranolazine (Ranexa) 500 mg PO BID [facility] Last Admin: 08/21/18 09:43 Dose: 500 mg Rosuvastatin Calcium (Crestor) 10 mg PO HS [facility] Last Admin: 08/20/18 21:35 Dose: 10 mg Sertraline HCl (Zoloft) 50 mg PO DAILY [facility] Last Admin: 08/21/18 09:43 Dose: 50 mg Sevelamer Carbonate (Renvela) 800 mg PO TIDCC [facility] Last Admin: 08/21/18 11:47 Dose: 800 mg Tramadol HCl (Ultram) 50 mg PO Q6 PRN PRN Reason: Pain, moderate (4-7) Last Admin: 08/17/18 14:49 Dose: 50 mg Valproate Sodium (Depakene Cap) 250 mg PO QID [facility] Last Admin: 08/21/18 13:57 Dose: Not Given Vitamin B Complex/Vit C/Folic Acid (Nephro-Courtney) 1 tab PO 0800 [facility] Last Admin: 08/21/18 09:43 Dose: 1 tab - Labs Labs: 08/16/18 14:28 08/19/18 17:07 - Constitutional Appears: Non-toxic - Head Exam Head Exam: NORMAL INSPECTION - Eye Exam Eye Exam: Conjunctival injection Additional comments: legaly blind - ENT Exam ENT Exam: Mucous Membranes Dry - Neck Exam Neck Exam: Full ROM - Respiratory Exam Respiratory Exam: Decreased Breath Sounds, Wheezes - Cardiovascular Exam Cardiovascular Exam: REGULAR RHYTHM - GI/Abdominal Exam GI & Abdominal Exam: Normal Bowel Sounds - Back Exam Back Exam: NORMAL INSPECTION - Neurological Exam Neurological Exam: Awake, Oriented x3 - Psychiatric Exam Psychiatric exam: Normal Affect - Skin Skin Exam: Normal Color Assessment and Plan - Assessment and Plan (Free Text) Assessment: ac chf ac bronchitis dm esrf Plan: cont same
[2018-08-21] MEDS: (Lantus) Insulin Glargine, Recombinant SC SCH (21:37)
--- NOTE | 2018-08-21 23:04 | CP.PCM.PN ---
Subjective - Date & Time of Evaluation Date of Evaluation: 08/21/18 Time of Evaluation: 10:15 - Subjective Subjective: Mild cough Alert and oriented x3 No fevers or chills Objective - Vital Signs/Intake and Output Vital Signs (last 24 hours): Temp Pulse Resp BP Pulse Ox 97.4 F L 63 20 96/57 L 95 08/21/18 16:50 08/21/18 16:50 08/21/18 16:50 08/21/18 16:50 08/21/18 16:50 Intake and Output: 08/21/18 08/22/18 18:59 06:59 Intake Total 750 Balance 750 - Medications Medications: Current Medications Albuterol/Ipratropium (Duoneb 3 Mg/0.5 Mg (3 Ml) Ud) 3 ml IH RQID [facility] Last Admin: 08/21/18 21:00 Dose: 3 ml Amiodarone HCl (Cordarone) 200 mg PO DAILY [facility] Last Admin: 08/21/18 09:43 Dose: 200 mg Apixaban (Eliquis) 5 mg PO BID [facility] Aspirin (Aspirin Chewable) 81 mg PO DAILY [facility] Last Admin: 08/21/18 09:43 Dose: 81 mg Calcitriol (Rocaltrol) 0.25 mcg PO TTS [facility] Last Admin: 08/21/18 09:43 Dose: 0.25 mcg Carvedilol (Coreg) 25 mg PO BID [facility] Last Admin: 08/18/18 17:14 Dose: Not Given Cinacalcet (Sensipar) 60 mg PO QPM [facility] Last Admin: 08/21/18 18:10 Dose: 60 mg Dextrose (Dextrose 50% Inj) 0 ml IV STAT PRN; Protocol PRN Reason: Hypoglycemia Protocol Last Admin: 08/19/18 09:06 Dose: 25 ml Dextrose (Glutose 15) 0 gm PO ONCE PRN; Protocol PRN Reason: Hypoglycemia Protocol Diltiazem HCl (Cardizem) 30 mg PO QID [facility] Last Admin: 08/15/18 14:03 Dose: Not Given Docusate Sodium (Colace) 100 mg PO DAILY PRN PRN Reason: FOR CONSTIPATION Epoetin Tom (Procrit) 4,000 unit IV TTS [facility] Last Admin: 08/19/18 10:38 Dose: 4,000 unit Ergocalciferol (Drisdol 50,000 Intl Units Cap) 1 cap PO Q7D [facility] Last Admin: 08/19/18 09:54 Dose: Not Given Famotidine (Pepcid) 20 mg PO DAILY [facility] Last Admin: 08/21/18 09:43 Dose: 20 mg Fluticasone Propionate (Flonase) 1 spr TAE BID [facility] Last Admin: 08/21/18 18:09 Dose: 1 spr Glucagon (Glucagen Diagnostic Kit) 0 mg IM STAT PRN; Protocol PRN Reason: Hypoglycemia Protocol Guaifenesin (Robitussin) 100 mg PO Q6 [facility] Last Admin: 08/21/18 18:08 Dose: 100 mg Heparin Sodium (Porcine) (Heparin) 3,700 units IVP TTS [facility] Last Admin: 08/21/18 16:16 Dose: 3,700 units Hydralazine HCl (Apresoline) 50 mg PO Q8H [facility] Last Admin: 08/19/18 02:30 Dose: Not Given Piperacillin Sod/Tazobactam Sod (Zosyn 2.25 Gm Iv Premix) 2.25 gm in 50 mls @ 100 mls/hr IVPB Q12 [facility]; Protocol Last Admin: 08/21/18 21:37 Dose: 100 mls/hr Insulin Glargine (Lantus) 8 unit SC HS [facility] Last Admin: 08/21/18 21:37 Dose: 8 u Insulin Human Regular (Novolin R) 0 unit SC ACHS [facility]; Protocol Last Admin: 08/21/18 21:48 Dose: Not Given Isosorbide Mononitrate (Imdur) 60 mg PO DAILY [facility] Last Admin: 08/21/18 09:49 Dose: Not Given Levetiracetam (Keppra) 500 mg PO BID [facility] Last Admin: 08/21/18 18:08 Dose: 500 mg Montelukast Sodium (Singulair) 10 mg PO DAILY [facility] Last Admin: 08/18/18 09:57 Dose: 10 mg Ranolazine (Ranexa) 500 mg PO BID [facility] Last Admin: 08/21/18 18:08 Dose: 500 mg Rosuvastatin Calcium (Crestor) 10 mg PO HS [facility] Last Admin: 08/21/18 21:38 Dose: 10 mg Sertraline HCl (Zoloft) 50 mg PO DAILY [facility] Last Admin: 08/21/18 09:43 Dose: 50 mg Sevelamer Carbonate (Renvela) 800 mg PO TIDCC [facility] Last Admin: 08/21/18 18:08 Dose: 800 mg Tramadol HCl (Ultram) 50 mg PO Q6 PRN PRN Reason: Pain, moderate (4-7) Last Admin: 08/17/18 14:49 Dose: 50 mg Valproate Sodium (Depakene Cap) 250 mg PO QID [facility] Last Admin: 08/21/18 21:39 Dose: 250 mg Vitamin B Complex/Vit C/Folic Acid (Nephro-Courtney) 1 tab PO 0800 [facility] Last Admin: 08/21/18 09:43 Dose: 1 tab - Labs Labs: 08/16/18 14:28 08/19/18 17:07 - Constitutional Appears: Chronically Ill - Head Exam Head Exam: ATRAUMATIC, NORMAL INSPECTION, NORMOCEPHALIC - Eye Exam Eye Exam: EOMI. absent: Normal appearance - ENT Exam ENT Exam: Mucous Membranes Moist, Normal Oropharynx - Respiratory Exam Respiratory Exam: Rhonchi. absent: Rales, Wheezes - Cardiovascular Exam Cardiovascular Exam: REGULAR RHYTHM, +S1, +S2, Murmur - GI/Abdominal Exam GI & Abdominal Exam: Soft. absent: Tenderness, Organomegaly - Neurological Exam Neurological Exam: Alert, Awake, Oriented x3 - Skin Skin Exam: Normal Color, Warm (b/l bka: stump C/D/I) Assessment and Plan - Assessment and Plan (Free Text) Assessment: 38 year old woman transgender chest pain, check serial troponin an EKG ESRD on HD PVD severe s/p bilateral BKA's, now with skin breadown in the amputation sites monitor DM is labile and brittle on insulin HTN is chornic and stable on coreg, norvasc, Hydralazine and losartan Atrial flutter/fibrillaiton suggest eliquis 5mg po BID for CVA prophylaxsis and for prior intracardiac thrombus, amiodarone for rhythm control Angina s/p CABG now with failed grafts and multiple PCI now non revascularizable, ranexa and imdur for chronic stable angina, on plavix, ASA and eliquis I would d/c plavix due to risk of bleeding and continue DOAC at 5mg BID SOB/Cough/URI and infiltrate on CXR: on ABX low BP: clinically improved Hypoglycemic sxs with sugars 50-60....given juice and improved.
[2018-08-22] MEDS: guaiFENesin 100 mg/5 ml Syrup UD PO SCH ×3 (06:14→17:53)
[2018-08-22] MEDS: (Novolin R) Insulin Human Regular 100 units/ml vial SC SCH ×4 (07:30→21:14)
[2018-08-22] MEDS: Albuterol-Ipratrop 3 mg / 0.5 (3 ml) UD IH SCH ×3 (08:03→20:45)
[2018-08-22] MEDS: Multivitamin Vitamin B Complex (Nephro-Vite) Tab PO SCH (08:50)
--- NOTE | 2018-08-22 09:53 | CP.PCM.PN ---
Subjective - Date & Time of Evaluation Date of Evaluation: 08/22/18 Time of Evaluation: 09:49 - Subjective Subjective: pt still coughing bad congested uncomfortable Objective - Vital Signs/Intake and Output Vital Signs (last 24 hours): Temp Pulse Resp BP Pulse Ox 97.6 F 69 20 123/63 99 08/22/18 08:01 08/22/18 08:01 08/22/18 08:01 08/22/18 08:01 08/22/18 08:01 - Medications Medications: Current Medications Albuterol/Ipratropium (Duoneb 3 Mg/0.5 Mg (3 Ml) Ud) 3 ml IH RQID [facility] Last Admin: 08/22/18 08:03 Dose: 3 ml Amiodarone HCl (Cordarone) 200 mg PO DAILY [facility] Last Admin: 08/21/18 09:43 Dose: 200 mg Apixaban (Eliquis) 5 mg PO BID [facility] Aspirin (Aspirin Chewable) 81 mg PO DAILY [facility] Last Admin: 08/21/18 09:43 Dose: 81 mg Calcitriol (Rocaltrol) 0.25 mcg PO TTS [facility] Last Admin: 08/21/18 09:43 Dose: 0.25 mcg Carvedilol (Coreg) 25 mg PO BID [facility] Last Admin: 08/18/18 17:14 Dose: Not Given Cinacalcet (Sensipar) 60 mg PO QPM [facility] Last Admin: 08/21/18 18:10 Dose: 60 mg Dextrose (Dextrose 50% Inj) 0 ml IV STAT PRN; Protocol PRN Reason: Hypoglycemia Protocol Last Admin: 08/19/18 09:06 Dose: 25 ml Dextrose (Glutose 15) 0 gm PO ONCE PRN; Protocol PRN Reason: Hypoglycemia Protocol Diltiazem HCl (Cardizem) 30 mg PO QID [facility] Last Admin: 08/15/18 14:03 Dose: Not Given Docusate Sodium (Colace) 100 mg PO DAILY PRN PRN Reason: FOR CONSTIPATION Epoetin Tom (Procrit) 4,000 unit IV TTS [facility] Last Admin: 08/19/18 10:38 Dose: 4,000 unit Ergocalciferol (Drisdol 50,000 Intl Units Cap) 1 cap PO Q7D [facility] Last Admin: 08/19/18 09:54 Dose: Not Given Famotidine (Pepcid) 20 mg PO DAILY [facility] Last Admin: 08/21/18 09:43 Dose: 20 mg Fluticasone Propionate (Flonase) 1 spr TAE BID [facility] Last Admin: 08/21/18 18:09 Dose: 1 spr Glucagon (Glucagen Diagnostic Kit) 0 mg IM STAT PRN; Protocol PRN Reason: Hypoglycemia Protocol Guaifenesin (Robitussin) 100 mg PO Q6 [facility] Last Admin: 08/22/18 06:14 Dose: 100 mg Heparin Sodium (Porcine) (Heparin) 3,700 units IVP TTS [facility] Last Admin: 08/21/18 16:16 Dose: 3,700 units Hydralazine HCl (Apresoline) 50 mg PO Q8H [facility] Last Admin: 08/19/18 02:30 Dose: Not Given Piperacillin Sod/Tazobactam Sod (Zosyn 2.25 Gm Iv Premix) 2.25 gm in 50 mls @ 100 mls/hr IVPB Q12 [facility]; Protocol Last Admin: 08/21/18 21:37 Dose: 100 mls/hr Insulin Glargine (Lantus) 8 unit SC [facility] Last Admin: 08/21/18 21:37 Dose: 8 u Insulin Human Regular (Novolin R) 0 unit SC [facility]; Protocol Last Admin: 08/22/18 07:30 Dose: Not Given Isosorbide Mononitrate (Imdur) 60 mg PO DAILY [facility] Last Admin: 08/21/18 09:49 Dose: Not Given Levetiracetam (Keppra) 500 mg PO BID [facility] Last Admin: 08/21/18 18:08 Dose: 500 mg Montelukast Sodium (Singulair) 10 mg PO DAILY [facility] Last Admin: 08/18/18 09:57 Dose: 10 mg Ranolazine (Ranexa) 500 mg PO BID [facility] Last Admin: 08/21/18 18:08 Dose: 500 mg Rosuvastatin Calcium (Crestor) 10 mg PO HS [facility] Last Admin: 08/21/18 21:38 Dose: 10 mg Sertraline HCl (Zoloft) 50 mg PO DAILY [facility] Last Admin: 08/21/18 09:43 Dose: 50 mg Sevelamer Carbonate (Renvela) 800 mg PO TIDCC [facility] Last Admin: 08/21/18 18:08 Dose: 800 mg Tramadol HCl (Ultram) 50 mg PO Q6 PRN PRN Reason: Pain, moderate (4-7) Last Admin: 08/22/18 02:13 Dose: 50 mg Valproate Sodium (Depakene Cap) 250 mg PO QID [facility] Last Admin: 08/21/18 21:39 Dose: 250 mg Vitamin B Complex/Vit C/Folic Acid (Nephro-Courtney) 1 tab PO 0800 [facility] Last Admin: 08/21/18 09:43 Dose: 1 tab - Labs Labs: 08/16/18 14:28 08/19/18 17:07 - Constitutional Appears: In Acute Distress - Head Exam Head Exam: ATRAUMATIC - Eye Exam Eye Exam: Normal appearance Pupil Exam: NORMAL ACCOMODATION - ENT Exam ENT Exam: Mucous Membranes Moist - Neck Exam Neck Exam: Full ROM - Respiratory Exam Respiratory Exam: Decreased Breath Sounds, Rales - Cardiovascular Exam Cardiovascular Exam: REGULAR RHYTHM - GI/Abdominal Exam GI & Abdominal Exam: Normal Bowel Sounds - Exam Exam: NORMAL INSPECTION - Extremities Exam Additional comments: bilateral amputation - Back Exam Back Exam: NORMAL INSPECTION - Psychiatric Exam Psychiatric exam: Depressed - Skin Skin Exam: Pallor Assessment and Plan - Assessment and Plan (Free Text) Assessment: ac bronchitis not imroved copd d, esrf Plan: cont treatment
[2018-08-22] MEDS: Fluticasone Nasal 50 mcg/Spray NAS SCH ×2 (10:04→17:54)
[2018-08-22] MEDS: Piperacill/Tazo 2.25gm in Dex 2.25 GM/50 ML BAG IVPB SCH ×2 (10:05→21:36)
[2018-08-22] MEDS: Ranolazine 500 mg Extended Release Tablets PO SCH ×2 (10:05→17:54)
--- NOTE | 2018-08-22 12:00 | CP.PCM.PN ---
Subjective - Date & Time of Evaluation Date of Evaluation: 08/22/18 Time of Evaluation: 11:59 - Subjective Subjective: Nephrology Consultation Note: Assessment: stable Pulmonary congestion, fluid overload, HTN urgency Pneumonia chronic chest pain, A flutter Diabetic chronic Kidney Disease (E11.22) Hypertensive Chronic Kidney Disease (I12.0) End stage renal disease (N18.6) dependence on hemodialysis (Z99.2) (TTS) via AVF Anemia (D64.9), Hyperphosphatemia (E83.39), Secondary Hyperparathyroidism (E21.1), HTN (I12.0) CAD s/p CABG, diastolic CHF, parox A flutter/fib, intra-cardiac thrombus, hx of Heparin induced thrombocytopenia, hx of seizure, blindness Plan: plan for dialysis as per TTS schedule Continue with Nephrovite 1 tab/day. not on HANNAH with HD . PRBC As needed for anemia, last Hb 9.1 Continue with phos binders home dose; renvela. continue with calcitriol and sensipar BP control with meds as ordered. on ARB as losartan (will hold) and d/c norvasc as BP low side Glycemic control, Dialysis consistent diet Further work up/management as per primary team Dose meds/antibiotics for ESRD status. Avoid fleets enema/magnesium based laxatives. Thanks for allowing me to participate in care of your patient. Will follow patient with you. Please call if any Qs. had d/w team Dr Eric Temple Office: [phone] CC: SOB reason for consult: ESRD HPI: Pt is a 38 y/o transgender with hx of ESRD on hemodialysis (TTS) via permacath, chronic anemia, hyperphosphatemia, secondary hyperparathyroidism, Diabetes Mellitus, hypertension, CAD s/p CABG, diastolic CHF, pA flutter/fib, intra-cardiac thrombus, Heparin induced thrombocytopenia in past presented with complaints of SOB and chronic chest pain x 1 day. pt with recurrent and frequent hospitalizations for same complaints. missed hD yesterday reports fever 103 yesterday ROS: All other negative except as in HPI. has chronic chest pain, improved SOB. says I am coughing more again Physical Examination: General Appearance: in no acute respiratory distress, co-operative. on o2 via NC Head; Atraumatic, normocephalic ENT: no ulcers no thrush. Tongue is midline. Oropharynx: no rash or ulcers. EYES: Pt is blind both eyes Neck; supple no lymphadenopathy, no thyromegaly or bruit Lungs: normal respiratory rate/effort. Breath sounds bilateral with rales and crackels Heart: Normal rate. s1s2 normal. No rub or gallop. Extremities: no edema. No varicose veins. has b/l BKA. Neurological: Patient is awake follow commands no focal deficit Skin: Warm and dry. Normal turgor. No rash. Palpitation: Normal elasticity for age Abdomen: Abdomen is soft. Bowel sounds +. There is no abdominal tenderness, no guarding/rigidity or organomegaly Psych: limited insight and has normal affect/mood MSK: no joint tenderness or swelling. Digits and nails normal, no deformity : kidney or bladder not palpable Access: permacath Labs/imaging reviewed. Past medical history, past surgical history, family history, social history, allergy reviewed and noted as below Family Hx: no hx of CKD. Non contributory Objective - Vital Signs/Intake and Output Vital Signs (last 24 hours): Temp Pulse Resp BP Pulse Ox 97.6 F 77 20 129/60 99 08/22/18 08:01 08/22/18 10:07 08/22/18 08:01 08/22/18 10:07 08/22/18 08:01 - Medications Medications: Current Medications Albuterol/Ipratropium (Duoneb 3 Mg/0.5 Mg (3 Ml) Ud) 3 ml IH RQID [facility] Last Admin: 08/22/18 11:35 Dose: 3 ml Amiodarone HCl (Cordarone) 200 mg PO DAILY [facility] Last Admin: 08/22/18 10:04 Dose: 200 mg Apixaban (Eliquis) 5 mg PO BID [facility] Last Admin: 08/22/18 10:04 Dose: 5 mg Aspirin (Aspirin Chewable) 81 mg PO DAILY [facility] Last Admin: 08/22/18 10:04 Dose: 81 mg Calcitriol (Rocaltrol) 0.25 mcg PO TTS [facility] Last Admin: 08/21/18 09:43 Dose: 0.25 mcg Carvedilol (Coreg) 25 mg PO BID [facility] Last Admin: 08/18/18 17:14 Dose: Not Given Cinacalcet (Sensipar) 60 mg PO QPM [facility] Last Admin: 08/21/18 18:10 Dose: 60 mg Dextrose (Dextrose 50% Inj) 0 ml IV STAT PRN; Protocol PRN Reason: Hypoglycemia Protocol Last Admin: 08/19/18 09:06 Dose: 25 ml Dextrose (Glutose 15) 0 gm PO ONCE PRN; Protocol PRN Reason: Hypoglycemia Protocol Diltiazem HCl (Cardizem) 30 mg PO QID [facility] Last Admin: 08/15/18 14:03 Dose: Not Given Docusate Sodium (Colace) 100 mg PO DAILY PRN PRN Reason: FOR CONSTIPATION Epoetin Tom (Procrit) 4,000 unit IV TTS [facility] Last Admin: 08/19/18 10:38 Dose: 4,000 unit Ergocalciferol (Drisdol 50,000 Intl Units Cap) 1 cap PO Q7D [facility] Last Admin: 08/19/18 09:54 Dose: Not Given Famotidine (Pepcid) 20 mg PO DAILY [facility] Last Admin: 08/22/18 10:04 Dose: 20 mg Fluticasone Propionate (Flonase) 1 spr TAE BID [facility] Last Admin: 08/22/18 10:04 Dose: 1 spr Glucagon (Glucagen Diagnostic Kit) 0 mg IM STAT PRN; Protocol PRN Reason: Hypoglycemia Protocol Guaifenesin (Robitussin) 100 mg PO Q6 [facility] Last Admin: 08/22/18 11:53 Dose: 100 mg Heparin Sodium (Porcine) (Heparin) 3,700 units IVP TTS [facility] Last Admin: 08/21/18 16:16 Dose: 3,700 units Hydralazine HCl (Apresoline) 50 mg PO Q8H [facility] Last Admin: 08/19/18 02:30 Dose: Not Given Hydromorphone HCl (Dilaudid) 0.5 mg IVP Q6H PRN PRN Reason: Pain, severe (8-10) Piperacillin Sod/Tazobactam Sod (Zosyn 2.25 Gm Iv Premix) 2.25 gm in 50 mls @ 100 mls/hr IVPB Q12 [facility]; Protocol Last Admin: 08/22/18 10:05 Dose: 100 mls/hr Insulin Glargine (Lantus) 8 unit SC HS [facility] Last Admin: 08/21/18 21:37 Dose: 8 u Insulin Human Regular (Novolin R) 0 unit SC A[facility]S [facility]; Protocol Last Admin: 08/22/18 07:30 Dose: Not Given Isosorbide Mononitrate (Imdur) 60 mg PO DAILY [facility] Last Admin: 08/22/18 10:03 Dose: 60 mg Levetiracetam (Keppra) 500 mg PO BID [facility] Last Admin: 08/22/18 10:04 Dose: 500 mg Montelukast Sodium (Singulair) 10 mg PO DAILY [facility] Last Admin: 08/18/18 09:57 Dose: 10 mg Ranolazine (Ranexa) 500 mg PO BID [facility] Last Admin: 08/22/18 10:05 Dose: 500 mg Rosuvastatin Calcium (Crestor) 10 mg PO HS [facility] Last Admin: 08/21/18 21:38 Dose: 10 mg Sertraline HCl (Zoloft) 50 mg PO DAILY [facility] Last Admin: 08/22/18 10:03 Dose: 50 mg Sevelamer Carbonate (Renvela) 800 mg PO TIDCC [facility] Last Admin: 08/22/18 11:53 Dose: 800 mg Tramadol HCl (Ultram) 50 mg PO Q6 PRN PRN Reason: Pain, moderate (4-7) Last Admin: 08/22/18 02:13 Dose: 50 mg Valproate Sodium (Depakene Cap) 250 mg PO QID [facility] Last Admin: 08/22/18 10:03 Dose: 250 mg Vitamin B Complex/Vit C/Folic Acid (Nephro-Courtney) 1 tab PO 0800 [facility] Last Admin: 08/22/18 08:50 Dose: 1 tab - Labs Labs: 08/16/18 14:28 08/19/18 17:07
[2018-08-22] MEDS: (Lantus) Insulin Glargine, Recombinant SC SCH (21:41)
[2018-08-23 00:44] VITALS: O2SAT 100
[2018-08-23] MEDS: HYDROmorphone 0.5 mg/0.5 ml ISec IVP PRN ×3 (01:33→15:11)
[2018-08-23] MEDS: guaiFENesin 100 mg/5 ml Syrup UD PO SCH ×4 (01:33→17:07)
[2018-08-23] MEDS: (Novolin R) Insulin Human Regular 100 units/ml vial SC SCH ×2 (07:12→12:30)
[2018-08-23] MEDS: Albuterol-Ipratrop 3 mg / 0.5 (3 ml) UD IH SCH ×3 (07:13→16:09)
[2018-08-23] MEDS: Multivitamin Vitamin B Complex (Nephro-Vite) Tab PO SCH (08:38)
[2018-08-23 10:31] LABS: BASO % 0.4 % (0.0-2.0); EOS # 0.3 K/uL (0.0-0.7); EOS % 4.3 % (0.0-4.0); HEMOGLOBIN 10.3 g/dL (12.0-18.0); LYMPH # 1.7 K/uL (1.0-4.3); LYMPH % 21.3 % (20.0-40.0); MEAN CELL VOLUME 92.6 fL (80.0-94.0); MEAN CORPUSCULAR HEMOGLOBIN 29.6 pg (27.0-31.0); MEAN CORPUSCULAR HGB CONC 31.9 g/dL (33.0-37.0); MEAN PLATELET VOLUME 9.4 fL (7.2-11.7); MONO # 0.4 K/uL (0.0-0.8); MONO % 5.3 % (0.0-10.0); NEUT # 5.5 K/uL (1.8-7.0); NEUT % 68.7 % (50.0-75.0); RBC 3.48 Mil/uL (4.40-5.90); RED CELL DISTRIBUTION WIDTH 18.7 % (11.5-14.5)
[2018-08-23] MEDS: EPOETIN ALFA 4,000 UNIT/ML ML Dialysis IV SCH ×2 (10:41→10:42)
[2018-08-23 10:42] LABS: CALCIUM 7.4 mg/dl (8.6-10.4)
[2018-08-23 10:52] VITALS: RESP 20
[2018-08-23] MEDS: Piperacill/Tazo 2.25gm in Dex 2.25 GM/50 ML BAG IVPB SCH (11:00)
[2018-08-23] MEDS: Ranolazine 500 mg Extended Release Tablets PO SCH ×2 (11:00→17:07)
[2018-08-23] MEDS: Fluticasone Nasal 50 mcg/Spray NAS SCH ×2 (11:00→17:07)
--- NOTE | 2018-08-23 11:52 | CP.PCM.PN ---
Subjective - Date & Time of Evaluation Date of Evaluation: 08/23/18 Time of Evaluation: 11:49 - Subjective Subjective: has less cough feels beter having dialysis now can go home today Objective - Vital Signs/Intake and Output Vital Signs (last 24 hours): Temp Pulse Resp BP Pulse Ox 97.9 F 72 20 143/69 100 08/23/18 09:30 08/23/18 09:30 08/23/18 09:30 08/23/18 11:00 08/23/18 09:30 Intake and Output: 08/23/18 08/23/18 06:59 18:59 Intake Total 100 Balance 100 - Medications Medications: Current Medications Albumin Human (Albumin Human 25% (12.5 Gm/50 Ml)) 25 gm IV TTS PRN PRN Reason: Other Albuterol/Ipratropium (Duoneb 3 Mg/0.5 Mg (3 Ml) Ud) 3 ml IH RQID [facility] Last Admin: 08/23/18 11:28 Dose: Not Given Amiodarone HCl (Cordarone) 200 mg PO DAILY [facility] Last Admin: 08/22/18 10:04 Dose: 200 mg Apixaban (Eliquis) 5 mg PO BID [facility] Last Admin: 08/22/18 17:54 Dose: 5 mg Aspirin (Aspirin Chewable) 81 mg PO DAILY [facility] Last Admin: 08/22/18 10:04 Dose: 81 mg Calcitriol (Rocaltrol) 0.25 mcg PO TTS [facility] Last Admin: 08/21/18 09:43 Dose: 0.25 mcg Carvedilol (Coreg) 25 mg PO BID [facility] Last Admin: 08/18/18 17:14 Dose: Not Given Cinacalcet (Sensipar) 60 mg PO QPM [facility] Last Admin: 08/22/18 17:55 Dose: 60 mg Dextrose (Dextrose 50% Inj) 0 ml IV STAT PRN; Protocol PRN Reason: Hypoglycemia Protocol Last Admin: 08/19/18 09:06 Dose: 25 ml Dextrose (Glutose 15) 0 gm PO ONCE PRN; Protocol PRN Reason: Hypoglycemia Protocol Diltiazem HCl (Cardizem) 30 mg PO QID [facility] Last Admin: 08/15/18 14:03 Dose: Not Given Docusate Sodium (Colace) 100 mg PO DAILY PRN PRN Reason: FOR CONSTIPATION Epoetin Tom (Procrit) 4,000 unit IV TTS [facility] Last Admin: 08/23/18 10:42 Dose: 4,000 unit Ergocalciferol (Drisdol 50,000 Intl Units Cap) 1 cap PO Q7D [facility] Last Admin: 08/19/18 09:54 Dose: Not Given Famotidine (Pepcid) 20 mg PO DAILY [facility] Last Admin: 08/22/18 10:04 Dose: 20 mg Fluticasone Propionate (Flonase) 1 spr TAE BID [facility] Last Admin: 08/22/18 17:54 Dose: 1 spr Glucagon (Glucagen Diagnostic Kit) 0 mg IM STAT PRN; Protocol PRN Reason: Hypoglycemia Protocol Guaifenesin (Robitussin) 100 mg PO Q6 [facility] Last Admin: 08/23/18 06:15 Dose: Not Given Heparin Sodium (Porcine) (Heparin) 3,700 units IVP [facility] Last Admin: 08/23/18 10:40 Dose: 3,700 units Hydralazine HCl (Apresoline) 50 mg PO Q8H [facility] Last Admin: 08/19/18 02:30 Dose: Not Given Hydromorphone HCl (Dilaudid) 0.5 mg IVP Q6H PRN PRN Reason: Pain, severe (8-10) Last Admin: 08/23/18 08:45 Dose: 0.5 mg Insulin Glargine (Lantus) 8 unit SC [facility] Last Admin: 08/22/18 21:41 Dose: 8 u Insulin Human Regular (Novolin R) 0 unit SC [facility]; Protocol Last Admin: 08/23/18 07:12 Dose: Not Given Isosorbide Mononitrate (Imdur) 60 mg PO DAILY [facility] Last Admin: 08/22/18 10:03 Dose: 60 mg Levetiracetam (Keppra) 500 mg PO BID [facility] Last Admin: 08/22/18 17:53 Dose: 500 mg Montelukast Sodium (Singulair) 10 mg PO DAILY [facility] Last Admin: 08/18/18 09:57 Dose: 10 mg Ranolazine (Ranexa) 500 mg PO BID [facility] Last Admin: 08/22/18 17:54 Dose: 500 mg Rosuvastatin Calcium (Crestor) 10 mg PO [facility] Last Admin: 08/22/18 21:36 Dose: 10 mg Sertraline HCl (Zoloft) 50 mg PO DAILY [facility] Last Admin: 08/22/18 10:03 Dose: 50 mg Sevelamer Carbonate (Renvela) 800 mg PO TIDCC [facility] Last Admin: 08/23/18 08:38 Dose: 800 mg Tramadol HCl (Ultram) 50 mg PO Q6 PRN PRN Reason: Pain, moderate (4-7) Last Admin: 08/22/18 02:13 Dose: 50 mg Valproate Sodium (Depakene Cap) 250 mg PO QID [facility] Last Admin: 08/22/18 21:48 Dose: 250 mg Vitamin B Complex/Vit C/Folic Acid (Nephro-Courtney) 1 tab PO 0800 [facility] Last Admin: 08/23/18 08:38 Dose: 1 tab - Labs Labs: 08/23/18 10:17 08/23/18 10:17 - Constitutional Appears: Non-toxic - Head Exam Head Exam: NORMAL INSPECTION - Eye Exam Eye Exam: Conjunctival injection - ENT Exam ENT Exam: Mucous Membranes Dry - Neck Exam Neck Exam: Full ROM - Respiratory Exam Respiratory Exam: Decreased Breath Sounds - Cardiovascular Exam Cardiovascular Exam: REGULAR RHYTHM - GI/Abdominal Exam GI & Abdominal Exam: Soft - Extremities Exam Additional comments: bilateral amputation - Back Exam Back Exam: NORMAL INSPECTION - Psychiatric Exam Psychiatric exam: Flat Affect - Skin Skin Exam: Pallor Assessment and Plan - Assessment and Plan (Free Text) Assessment: ac bronchitis beter copd dmid esrf aneamia legaly blind Plan: disch home with home servisce cont all med
[2018-08-23] MEDS ORDERED: Albumin Human 25% (12.5 gm/50 ml) IV PRN (12:00)
--- NOTE | 2018-08-23 12:47 | CP.PCM.PN ---
Subjective - Date & Time of Evaluation Date of Evaluation: 08/23/18 Time of Evaluation: 12:46 - Subjective Subjective: Nephrology Consultation Note: Assessment: stable Pulmonary congestion, fluid overload, HTN urgency Pneumonia chronic chest pain, A flutter Diabetic chronic Kidney Disease (E11.22) Hypertensive Chronic Kidney Disease (I12.0) End stage renal disease (N18.6) dependence on hemodialysis (Z99.2) (TTS) via AVF Anemia (D64.9), Hyperphosphatemia (E83.39), Secondary Hyperparathyroidism (E21.1), HTN (I12.0) CAD s/p CABG, diastolic CHF, parox A flutter/fib, intra-cardiac thrombus, hx of Heparin induced thrombocytopenia, hx of seizure, blindness Plan: plan for dialysis as per TTS schedule Continue with Nephrovite 1 tab/day. not on HANNAH with HD . PRBC As needed for anemia, last Hb 9.1 Continue with phos binders home dose; renvela. continue with calcitriol and sensipar BP control with meds as ordered. on ARB as losartan (will hold) and d/c norvasc as BP low side Glycemic control, Dialysis consistent diet Further work up/management as per primary team Dose meds/antibiotics for ESRD status. Avoid fleets enema/magnesium based laxatives. Thanks for allowing me to participate in care of your patient. Will follow patient with you. Please call if any Qs. had d/w team Dr Eric Temple Office: [phone] CC: SOB reason for consult: ESRD HPI: Pt is a 38 y/o transgender with hx of ESRD on hemodialysis (TTS) via permacath, chronic anemia, hyperphosphatemia, secondary hyperparathyroidism, Diabetes Mellitus, hypertension, CAD s/p CABG, diastolic CHF, pA flutter/fib, intra-cardiac thrombus, Heparin induced thrombocytopenia in past presented with complaints of SOB and chronic chest pain x 1 day. pt with recurrent and frequent hospitalizations for same complaints. missed hD yesterday reports fever 103 yesterday ROS: All other negative except as in HPI. has chronic chest pain, improved SOB. says I am coughing more again Physical Examination: seen on HD General Appearance: in no acute respiratory distress, co-operative. on o2 via [place] Head; Atraumatic, normocephalic ENT: no ulcers no thrush. Tongue is midline. Oropharynx: no rash or ulcers. EYES: Pt is blind both eyes Neck; supple no lymphadenopathy, no thyromegaly or bruit Lungs: normal respiratory rate/effort. Breath sounds bilateral with basal crackels Heart: Normal rate. s1s2 normal. No rub or gallop. Extremities: no edema. No varicose veins. has b/l BKA. Neurological: Patient is awake follow commands no focal deficit Skin: Warm and dry. Normal turgor. No rash. Palpitation: Normal elasticity for age Abdomen: Abdomen is soft. Bowel sounds +. There is no abdominal tenderness, no guarding/rigidity or organomegaly Psych: limited insight and has normal affect/mood MSK: no joint tenderness or swelling. Digits and nails normal, no deformity : kidney or bladder not palpable Access: permacath Labs/imaging reviewed. Past medical history, past surgical history, family history, social history, allergy reviewed and noted as below Family Hx: no hx of CKD. Non contributory Objective - Vital Signs/Intake and Output Vital Signs (last 24 hours): Temp Pulse Resp BP Pulse Ox 97.9 F 72 20 141/71 100 08/23/18 09:30 08/23/18 09:30 08/23/18 09:30 08/23/18 12:30 08/23/18 09:30 Intake and Output: 08/23/18 08/23/18 06:59 18:59 Intake Total 100 Balance 100 - Medications Medications: Current Medications Albumin Human (Albumin Human 25% (12.5 Gm/50 Ml)) 25 gm IV TTS PRN PRN Reason: Other Albuterol/Ipratropium (Duoneb 3 Mg/0.5 Mg (3 Ml) Ud) 3 ml IH RQID [facility] Last Admin: 08/23/18 11:28 Dose: Not Given Amiodarone HCl (Cordarone) 200 mg PO DAILY [facility] Last Admin: 08/22/18 10:04 Dose: 200 mg Apixaban (Eliquis) 5 mg PO BID [facility] Last Admin: 08/23/18 11:00 Dose: Not Given Aspirin (Aspirin Chewable) 81 mg PO DAILY [facility] Last Admin: 08/22/18 10:04 Dose: 81 mg Calcitriol (Rocaltrol) 0.25 mcg PO TTS [facility] Last Admin: 08/21/18 09:43 Dose: 0.25 mcg Carvedilol (Coreg) 25 mg PO BID [facility] Last Admin: 08/18/18 17:14 Dose: Not Given Cinacalcet (Sensipar) 60 mg PO QPM [facility] Last Admin: 08/22/18 17:55 Dose: 60 mg Dextrose (Dextrose 50% Inj) 0 ml IV STAT PRN; Protocol PRN Reason: Hypoglycemia Protocol Last Admin: 08/19/18 09:06 Dose: 25 ml Dextrose (Glutose 15) 0 gm PO ONCE PRN; Protocol PRN Reason: Hypoglycemia Protocol Diltiazem HCl (Cardizem) 30 mg PO QID [facility] Last Admin: 08/15/18 14:03 Dose: Not Given Docusate Sodium (Colace) 100 mg PO DAILY PRN PRN Reason: FOR CONSTIPATION Epoetin Tom (Procrit) 4,000 unit IV TTS [facility] Last Admin: 08/23/18 10:42 Dose: 4,000 unit Ergocalciferol (Drisdol 50,000 Intl Units Cap) 1 cap PO Q7D [facility] Last Admin: 08/19/18 09:54 Dose: Not Given Famotidine (Pepcid) 20 mg PO DAILY [facility] Last Admin: 08/22/18 10:04 Dose: 20 mg Fluticasone Propionate (Flonase) 1 spr TAE BID [facility] Last Admin: 08/23/18 11:00 Dose: Not Given Glucagon (Glucagen Diagnostic Kit) 0 mg IM STAT PRN; Protocol PRN Reason: Hypoglycemia Protocol Guaifenesin (Robitussin) 100 mg PO Q6 [facility] Last Admin: 08/23/18 06:15 Dose: Not Given Heparin Sodium (Porcine) (Heparin) 3,700 units IVP TTS [facility] Last Admin: 08/23/18 10:40 Dose: 3,700 units Hydralazine HCl (Apresoline) 50 mg PO Q8H [facility] Last Admin: 08/19/18 02:30 Dose: Not Given Hydromorphone HCl (Dilaudid) 0.5 mg IVP Q6H PRN PRN Reason: Pain, severe (8-10) Last Admin: 08/23/18 08:45 Dose: 0.5 mg Insulin Glargine (Lantus) 8 unit SC HS [facility] Last Admin: 08/22/18 21:41 Dose: 8 u Insulin Human Regular (Novolin R) 0 unit SC [facility]; Protocol Last Admin: 08/23/18 07:12 Dose: Not Given Isosorbide Mononitrate (Imdur) 60 mg PO DAILY [facility] Last Admin: 08/22/18 10:03 Dose: 60 mg Levetiracetam (Keppra) 500 mg PO BID [facility] Last Admin: 08/23/18 11:00 Dose: Not Given Montelukast Sodium (Singulair) 10 mg PO DAILY [facility] Last Admin: 08/18/18 09:57 Dose: 10 mg Ranolazine (Ranexa) 500 mg PO BID [facility] Last Admin: 08/23/18 11:00 Dose: Not Given Rosuvastatin Calcium (Crestor) 10 mg PO HS [facility] Last Admin: 08/22/18 21:36 Dose: 10 mg Sertraline HCl (Zoloft) 50 mg PO DAILY [facility] Last Admin: 08/22/18 10:03 Dose: 50 mg Sevelamer Carbonate (Renvela) 800 mg PO TIDCC [facility] Last Admin: 08/23/18 08:38 Dose: 800 mg Tramadol HCl (Ultram) 50 mg PO Q6 PRN PRN Reason: Pain, moderate (4-7) Last Admin: 08/22/18 02:13 Dose: 50 mg Valproate Sodium (Depakene Cap) 250 mg PO QID [facility] Last Admin: 08/23/18 11:00 Dose: Not Given Vitamin B Complex/Vit C/Folic Acid (Nephro-Courtney) 1 tab PO 0800 [facility] Last Admin: 08/23/18 08:38 Dose: 1 tab - Labs Labs: 08/23/18 10:17 08/23/18 10:17
--- NOTE | 2018-08-23 15:20 | PCM.HF ---
Heart Failure Core Measure - Heart Failure Ejection Fraction: Less Than 40 % (EF 35-40%) RAÚL Inhibitor Prescribed: No Contraindication/Reason for not providing: on arb Beta-Andrew Prescribed: Carvedilol Angiotensin II Receptor Andrew Prescribed: Yes AnticoagulationTherapy for Atrial Fibrillation/Atrialflutter: Yes Aldosterone Antagonist Prescribed: No Contraindication/Reason for not providing: on cardizem Hydralazine Nitrate Prescribed: No Contraindication/Reason for not providing: on amiodarone Implantable Cardioverter Defibrillator Therapy: No Contraindication/Reason for not providing: not a candidate for pacemaker Cardiac Resynchronization Therapy Prescribed: No Contraindication/Reason for not providing: not indicated - Follow up Will be discharged to: Home Follow Up Date (must be within 7 days from discharge): 08/26/18 Follow Up Time: 10:00
[2018-08-23 17:41] VITALS: BP 111/71; PULSE 87; TEMP 97.8
== END 2018-08-23 18:00 | disposition home or self-care (01) | DRG 544 ==
LOC: C.ER 21:10 → C.5S 22:53
PROVIDERS: ADMIT Internal Medicine; ATTEND Internal Medicine
PROC: 5A1D70Z Performance of Urinary Filtration, Intermittent, Less than 6 Hours Per Day (ICD-10-PCS; principal; 2018-08-15)
PROC: 5A1D70Z Performance of Urinary Filtration, Intermittent, Less than 6 Hours Per Day (ICD-10-PCS; 2018-08-16)
PROC: 5A1D70Z Performance of Urinary Filtration, Intermittent, Less than 6 Hours Per Day (ICD-10-PCS; 2018-08-18)
PROC: 5A1D70Z Performance of Urinary Filtration, Intermittent, Less than 6 Hours Per Day (ICD-10-PCS; 2018-08-19)
PROC: 5A1D70Z Performance of Urinary Filtration, Intermittent, Less than 6 Hours Per Day (ICD-10-PCS; 2018-08-20)
PROC: 5A1D70Z Performance of Urinary Filtration, Intermittent, Less than 6 Hours Per Day (ICD-10-PCS; 2018-08-21)
PROC: 5A1D70Z Performance of Urinary Filtration, Intermittent, Less than 6 Hours Per Day (ICD-10-PCS; 2018-08-23)
DX: I13.2 Hypertensive heart and chronic kidney disease with heart failure and with stage 5 chronic kidney disease, or end stage renal disease (principal); J18.9 Pneumonia, unspecified organism; I50.32 Chronic diastolic (congestive) heart failure; N18.6 End stage renal disease; J44.0 Chronic obstructive pulmonary disease with (acute) lower respiratory infection; E11.22 Type 2 diabetes mellitus with diabetic chronic kidney disease; E11.649 Type 2 diabetes mellitus with hypoglycemia without coma; I48.92 Unspecified atrial flutter; D75.82 Heparin induced thrombocytopenia (HIT); E11.51 Type 2 diabetes mellitus with diabetic peripheral angiopathy without gangrene; T82.868A Thrombosis due to vascular prosthetic devices, implants and grafts, initial encounter; I36.1 Nonrheumatic tricuspid (valve) insufficiency; R09.02 Hypoxemia; D64.9 Anemia, unspecified; F41.9 Anxiety disorder, unspecified; Z91.15 Patient's noncompliance with renal dialysis; Z99.2 Dependence on renal dialysis; Z95.1 Presence of aortocoronary bypass graft; I25.709 Atherosclerosis of coronary artery bypass graft(s), unspecified, with unspecified angina pectoris; G89.29 Other chronic pain; R07.9 Chest pain, unspecified; Z86.73 Personal history of transient ischemic attack (TIA), and cerebral infarction without residual deficits; F02.80 Dementia in other diseases classified elsewhere, unspecified severity, without behavioral disturbance, psychotic disturbance, mood disturbance, and anxiety; G30.9 Alzheimer's disease, unspecified; E78.00 Pure hypercholesterolemia, unspecified; E03.9 Hypothyroidism, unspecified; M19.90 Unspecified osteoarthritis, unspecified site; F32.9 Major depressive disorder, single episode, unspecified; Z86.718 Personal history of other venous thrombosis and embolism; Z86.711 Personal history of pulmonary embolism; Z87.11 Personal history of peptic ulcer disease; Z95.5 Presence of coronary angioplasty implant and graft; H54.8 Legal blindness, as defined in USA; Z89.512 Acquired absence of left leg below knee; Z89.511 Acquired absence of right leg below knee; Z87.01 Personal history of pneumonia (recurrent); F45.9 Somatoform disorder, unspecified; Z88.8 Allergy status to other drugs, medicaments and biological substances; Z88.5 Allergy status to narcotic agent; Z91.011 Allergy to milk products; I16.0 Hypertensive urgency; I48.0 Paroxysmal atrial fibrillation; N25.81 Secondary hyperparathyroidism of renal origin; E83.39 Other disorders of phosphorus metabolism; F64.9 Gender identity disorder, unspecified; J06.9 Acute upper respiratory infection, unspecified; J20.9 Acute bronchitis, unspecified; I27.20 Pulmonary hypertension, unspecified; I95.9 Hypotension, unspecified

== ENCOUNTER 2018-09-02 16:25 | Inpatient (IN) | payer OTHER ==
[2018-09-02 16:25] VITALS: PULSE 110; BMI 18.8
--- NOTE | 2018-09-02 16:56 | C.PDOC ---
History Of Present Illness 38 year old male presents to the emergency department with complaints of intermittent chest pain for the past couple of days that has become worse today. Patient denies shortness of breath, fever, or cough. Patient states that he was admitted here 7 months ago for chest pain, but was transferred for a CABG. Patient states that he has been compliant with his medications. Time Seen by Provider: 09/02/18 16:50 Chief Complaint (Nursing): Chest Pain History Per: Patient History/Exam Limitations: no limitations Onset/Duration Of Symptoms: Days, Intermittent Episodes Current Symptoms Are (Timing): Worse Quality: "Pain" Past Medical History Reviewed: Historical Data, Nursing Documentation, Vital Signs Vital Signs: Last Vital Signs Temp 98.2 F 09/02/18 16:29 Pulse 86 09/02/18 16:29 Resp 20 09/02/18 16:29 BP 206/94 H 09/02/18 16:29 Pulse Ox 100 09/02/18 16:35 - Medical History PMH: Alzheimer's Disease, Anemia, Anxiety, Arthritis, Asthma, Atrial Fibrillation, Bronchitis, CAD, Cardia Arrhythmia, CHF, COPD, CVA, Depression, Diabetes, Deep Vein Thrombosis, Gastritis, Gastrointestinal Ulcer, Gall Bladder Disease, HTN, Hypercholesterolemia, Hypothyroidism, Pneumonia, End Stage Renal Disease, Chronic Kidney Disease, Seizures Denies: Hyperthyroidism, Kidney Stones, Sexually Transmitted Disease Surgical History: CABG (12/2009), Cholecystectomy (2011), Coronary Stent - [facility] Procedures (08/14/18) ABDOMINAL WALL SINOGRAM (12/31/13) ASSISTANCE WITH RESPIRATORY VENTILATION, 24-96 HRS, CPAP (05/31/18) C.A.T. SCAN OF ABDOMEN (10/31/13) CENTRAL VENOUS CATHETER PLACEMENT WITH GUIDANCE (02/10/15) CHANGE OTHER DEVICE IN TRUNK SUBCU/FASCIA, REPOSSESSION AGENT APPROACH (06/01/17) DILATE R ANT TIB ART W DRUG-ELUT INTRALUM, PERC (08/12/15) DILATION OF LEFT FEMORAL ARTERY, PERCUTANEOUS APPROACH (07/04/16) DILATION OF RIGHT FEMORAL ARTERY, PERCUTANEOUS APPROACH (08/12/15) DILATION OF RIGHT POPLITEAL ARTERY, PERCUTANEOUS APPROACH (08/12/15) DX ULTRASOUND-HEART (01/05/13) ENTERAL INFUSION OF CONCENTRATED NUT. SUBSTANCES (06/28/13) EXCIS DEBRIDE OF WOUND, INFECT, OR BURN (08/03/14) EXCISION OF STOMACH, ENDO, DIAGN (03/03/17) EXTIRPATION OF MATTER FROM L FEM ART, PERC APPROACH (07/04/16) EXTIRPATION OF MATTER FROM R FEM ART, PERC APPROACH (08/12/15) EXTIRPATION OF MATTER FROM R POPL ART, PERC APPROACH (08/12/15) FLUOROSCOPY OF L LOW EXTREM ART USING L OSM CONTRAST (08/12/15) FLUOROSCOPY OF R LOW EXTREM ART USING L OSM CONTRAST (08/12/15) FLUOROSCOPY OF RIGHT JUGULAR VEINS, GUIDANCE (06/01/17) FREE SKIN GRAFT NEC (08/03/14) HEAD SOFT TISS X-RAY NEC (04/15/13) HEMODIALYSIS (04/28/15) INCIS W REM OF FORIEGN BODY OR DEV FROM SKIN & SUBCUT TISSUE (08/08/13) INSERT INFUSION DEV IN R INT JUGULAR VEIN, PERC (06/01/17) INSERTION OF INFUSION DEV INTO R SUBCLAV VEIN, PERC APPROACH (01/19/16) INSERTION OF INFUSION DEV INTO SUP VENA CAVA, PERC APPROACH (01/07/18) INSPECTION OF UPPER INTESTINAL TRACT, ENDO (03/03/17) INTRODUCE OF OTH THROMBOLYTIC INTO PERIPH ART, PERC APPROACH (08/12/15) LAPAROSCOPIC CHOLECYSTECTOMY (09/21/13) LOC EXC LES METATAR/TAR (06/01/14) PACKED CELL TRANSFUSION (06/01/14) PERCUTAN LIVER ASPIRAT (12/31/13) PERFORMANCE OF URINARY FILTRATION, MULTIPLE (05/17/17) PERFORMANCE OF URINARY FILTRATION, SINGLE (12/18/16) SKIN & SUBQ INCISION NEC (10/24/14) TETANUS TOXOID ADMINIST (06/13/14) TRANSFUSE NONAUT RED BLOOD CELLS IN PERIPH VEIN, PERC (04/09/17) ULTRASONOGRAPHY OF RIGHT AND LEFT HEART (04/09/17) ULTRASONOGRAPHY OF SUPERIOR VENA CAVA, GUIDANCE (01/07/18) VENOUS CATHETERIZATION FOR RENAL DIALYSIS (08/08/13) VENOUS CATHETERIZATION NEC (04/30/13) Family History: States: Unknown Family Hx - Social History Hx Tobacco Use: No Hx Alcohol Use: No Hx Substance Use: No - Immunization History Hx Tetanus Toxoid Vaccination: Yes Hx Influenza Vaccination: Yes Hx Pneumococcal Vaccination: Yes Review Of Systems Except As Marked, All Systems Reviewed And Found Negative. Constitutional: Negative for: Fever Cardiovascular: Positive for: Chest Pain Respiratory: Negative for: Cough, Shortness of Breath Physical Exam - Physical Exam Appears: Well, Non-toxic, No Acute Distress Skin: Normal Color, Warm, Dry Head: Atraumatic, Normacephalic Eye(s): bilateral: Normal Inspection, PERRL, EOMI Nose: Normal Oral Mucosa: Moist Neck: Normal, Supple Chest: Symmetrical, No Tenderness, Other (well-healed mid-sternal scar. Left- sided AV graft. ) Cardiovascular: Rhythm Regular, No Murmur ED Course And Treatment O2 Sat by Pulse Oximetry: 100 Disposition - Disposition
--- NOTE | 2018-09-02 17:08 | C.PDOC ---
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 Patient speaking in full sentences and denies fever, chills, nausea, vomiting or any other complaints at this time. Time Seen by Provider: 09/02/18 16:50 Chief Complaint (Nursing): Chest Pain Past Medical History Vital Signs: Last Vital Signs Temp 98.2 F 09/02/18 16:29 Pulse 86 09/02/18 16:29 Resp 20 09/02/18 16:29 BP 206/94 H 09/02/18 16:29 Pulse Ox 100 09/02/18 16:35 - Medical History PMH: Alzheimer's Disease, Anemia, Anxiety, Arthritis, Asthma, Atrial Fibrillation, Bronchitis, CAD, Cardia Arrhythmia, CHF, COPD, CVA, Depression, Diabetes, Deep Vein Thrombosis, Gastritis, Gastrointestinal Ulcer, Gall Bladder Disease, HTN, Hypercholesterolemia, Hypothyroidism, Pneumonia, End Stage Renal Disease, Chronic Kidney Disease, Seizures Denies: Hyperthyroidism, Kidney Stones, Sexually Transmitted Disease Surgical History: CABG (12/2009), Cholecystectomy (2011), Coronary Stent - [facility] Procedures (08/14/18) ABDOMINAL WALL SINOGRAM (12/31/13) ASSISTANCE WITH RESPIRATORY VENTILATION, 24-96 HRS, CPAP (05/31/18) C.A.T. SCAN OF ABDOMEN (10/31/13) CENTRAL VENOUS CATHETER PLACEMENT WITH GUIDANCE (02/10/15) CHANGE OTHER DEVICE IN TRUNK SUBCU/FASCIA, TELEMETRY NURSE APPROACH (06/01/17) DILATE R ANT TIB ART W DRUG-ELUT INTRALUM, PERC (08/12/15) DILATION OF LEFT FEMORAL ARTERY, PERCUTANEOUS APPROACH (07/04/16) DILATION OF RIGHT FEMORAL ARTERY, PERCUTANEOUS APPROACH (08/12/15) DILATION OF RIGHT POPLITEAL ARTERY, PERCUTANEOUS APPROACH (08/12/15) DX ULTRASOUND-HEART (01/05/13) ENTERAL INFUSION OF CONCENTRATED NUT. SUBSTANCES (06/28/13) EXCIS DEBRIDE OF WOUND, INFECT, OR BURN (08/03/14) EXCISION OF STOMACH, ENDO, DIAGN (03/03/17) EXTIRPATION OF MATTER FROM L FEM ART, PERC APPROACH (07/04/16) EXTIRPATION OF MATTER FROM R FEM ART, PERC APPROACH (08/12/15) EXTIRPATION OF MATTER FROM R POPL ART, PERC APPROACH (08/12/15) FLUOROSCOPY OF L LOW EXTREM ART USING L OSM CONTRAST (08/12/15) FLUOROSCOPY OF R LOW EXTREM ART USING L OSM CONTRAST (08/12/15) FLUOROSCOPY OF RIGHT JUGULAR VEINS, GUIDANCE (06/01/17) FREE SKIN GRAFT NEC (08/03/14) HEAD SOFT TISS X-RAY NEC (04/15/13) HEMODIALYSIS (04/28/15) INCIS W REM OF FORIEGN BODY OR DEV FROM SKIN & SUBCUT TISSUE (08/08/13) INSERT INFUSION DEV IN R INT JUGULAR VEIN, PERC (06/01/17) INSERTION OF INFUSION DEV INTO R SUBCLAV VEIN, PERC APPROACH (01/19/16) INSERTION OF INFUSION DEV INTO SUP VENA CAVA, PERC APPROACH (01/07/18) INSPECTION OF UPPER INTESTINAL TRACT, ENDO (03/03/17) INTRODUCE OF OTH THROMBOLYTIC INTO PERIPH ART, PERC APPROACH (08/12/15) LAPAROSCOPIC CHOLECYSTECTOMY (09/21/13) LOC EXC LES METATAR/TAR (06/01/14) PACKED CELL TRANSFUSION (06/01/14) PERCUTAN LIVER ASPIRAT (12/31/13) PERFORMANCE OF URINARY FILTRATION, MULTIPLE (05/17/17) PERFORMANCE OF URINARY FILTRATION, SINGLE (12/18/16) SKIN & SUBQ INCISION NEC (10/24/14) TETANUS TOXOID ADMINIST (06/13/14) TRANSFUSE NONAUT RED BLOOD CELLS IN PERIPH VEIN, PERC (04/09/17) ULTRASONOGRAPHY OF RIGHT AND LEFT HEART (04/09/17) ULTRASONOGRAPHY OF SUPERIOR VENA CAVA, GUIDANCE (01/07/18) VENOUS CATHETERIZATION FOR RENAL DIALYSIS (08/08/13) VENOUS CATHETERIZATION NEC (04/30/13) Family History: States: Unknown Family Hx - Social History Hx Tobacco Use: No Hx Alcohol Use: No Hx Substance Use: No - Immunization History Hx Tetanus Toxoid Vaccination: Yes Hx Influenza Vaccination: Yes Hx Pneumococcal Vaccination: Yes Review Of Systems Except As Marked, All Systems Reviewed And Found Negative. Constitutional: Negative for: Fever Gastrointestinal: Negative for: Vomiting Physical Exam - Physical Exam Additional Physical Exam Comments: Appears: Non-toxic, No Acute Distress, Chronically Ill Skin: Warm, Dry, No Rash Head: Atraumatic, Normacephalic Eye(s): bilateral: Normal Inspection (blind) Oral Mucosa: Moist Neck: Normal ROM, Supple Chest: Symmetrical Cardiovascular: Rhythm Regular, No Friction Rub Respiratory: Normal Breath Sounds, No Rales, No Rhonchi, No Wheezing Gastrointestinal/Abdominal: Soft, No Tenderness, No Guarding, No Rebound Extremity: Other (bilateral BKA) Neurological/Psych: Oriented x3, Normal Speech ED Course And Treatment - Laboratory Results Result Diagrams: 09/02/18 18:44 09/02/18 18:44 O2 Sat by Pulse Oximetry: 100 Medical Decision Making Medical Decision Making: EKG NSR 76 bpm, no ST elevations CXR no consolidation. Dr. Li accepts patient to her service. ASA administered. Disposition - Disposition Disposition: HOSPITALIZED Disposition Time: 19:30 Condition: GUARDED - POA Core Measure Indicators: Chest Pain - Clinical Impression Clinical Impression: Chest pain, Elevated troponin
[2018-09-02 18:47] LABS: BASO # 0.1 K/uL (0.0-0.2); BASO % 0.7 % (0.0-2.0); EOS # 0.5 K/uL (0.0-0.7); EOS % 4.9 % (0.0-4.0); HEMOGLOBIN 9.6 g/dL (12.0-18.0); LYMPH # 2.5 K/uL (1.0-4.3); LYMPH % 26.7 % (20.0-40.0); MEAN CELL VOLUME 92.8 fL (80.0-94.0); MEAN CORPUSCULAR HEMOGLOBIN 29.8 pg (27.0-31.0); MEAN CORPUSCULAR HGB CONC 32.1 g/dL (33.0-37.0); MEAN PLATELET VOLUME 9.7 fL (7.2-11.7); MONO # 0.5 K/uL (0.0-0.8); MONO % 5.1 % (0.0-10.0); NEUT # 5.8 K/uL (1.8-7.0); NEUT % 62.6 % (50.0-75.0); NRBC % 0.1 % (0.0-2.0); RBC 3.23 Mil/uL (4.40-5.90); RED CELL DISTRIBUTION WIDTH 20.1 % (11.5-14.5); WHITE BLOOD COUNT 9.3 K/uL (4.8-10.8)
[2018-09-02 19:13] LABS: ALB/GLOB RATIO 1.2 (1.0-2.1); ALBUMIN 4.4 g/dL (3.5-5.0); ALT/SGPT < 6 U/L (21-72); AST/SGOT 75 U/L (17-59); BLOOD UREA NITROGEN 44 mg/dL (9-20); CALCIUM 8.5 mg/dl (8.6-10.4); GFR NON-AFRICAN AMERICAN 17
[2018-09-02 19:28] LABS: CK-MB 0.68 ng/mL (0.0-3.38)
[2018-09-02 19:39] LABS: B-TYPE NATRIURETIC PEPTIDE 114000 pg/mL (0-450)
[2018-09-03] MEDS ORDERED: Ergocalciferol 50,000 Intl Units Cap PO SCH (00:15)
[2018-09-03] MEDS: Albuterol-Ipratrop 3 mg / 0.5 (3 ml) UD IH SCH ×5 (03:38→20:03)
[2018-09-03] MEDS: (Novolin R) Insulin Human Regular 100 units/ml vial SC SCH ×4 (06:47→22:38)
[2018-09-03] MEDS ORDERED: Dextrose 50% SYRINGE Inj (50 ml) IV PRN (07:04)
[2018-09-03] MEDS ORDERED: Glucagon Recombinant 1 mg Inj IM PRN (07:04)
[2018-09-03] MEDS: Multivitamin Vitamin B Complex (Nephro-Vite) Tab PO SCH (08:13)
[2018-09-03] MEDS: Pantoprazole 20 mg EC Tab PO SCH (09:28)
[2018-09-03] MEDS: Ranolazine 500 mg Extended Release Tablets PO SCH ×2 (09:28→18:18)
[2018-09-03] MEDS: Insulin Detemir 100 units/ml Vial (Levemir) SC SCH (09:29)
[2018-09-03] MEDS: Ergocalciferol 50,000 Intl Units Cap PO SCH (09:44)
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
--- NOTE | 2018-09-03 10:39 | RAD ---
HISTORY: dyspnea COMPARISON: Chest x-ray performed 08/18/18 TECHNIQUE: Chest, one view. FINDINGS: Right IJ approach dialysis catheter. LUNGS: Right upper lobe infiltrate persists, decreased in extent. Hazy bilateral pulmonary opacities consistent with moderate pulmonary venous congestion/edema and small bilateral pleural effusions. No definite pneumothorax. CARDIOVASCULAR: Median sternotomy wires. Cardiomegaly. Atherosclerotic calcifications of the aorta. OSSEOUS STRUCTURES: Degenerative changes. VISUALIZED UPPER ABDOMEN: Unremarkable. OTHER FINDINGS: None. IMPRESSION: Right upper lobe infiltrate persists, decreased in extent. Hazy bilateral pulmonary opacities consistent with moderate pulmonary venous congestion/edema and small bilateral pleural effusions. Cardiomegaly.
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
--- NOTE | 2018-09-03 18:26 | CARD ---
APPROVED REPORT Date of service: 09/02/2018 EKG Measurement Heart [id number] <Conclusion> Normal sinus rhythm Left ventricular hypertrophy with QRS widening and repolarization abnormality Possible Inferior infarct, age undetermined Abnormal ECG
[2018-09-03] MEDS: (Lantus) Insulin Glargine, Recombinant SC SCH (22:38)
[2018-09-04] MEDS: Albuterol-Ipratrop 3 mg / 0.5 (3 ml) UD IH SCH ×6 (00:45→19:45)
[2018-09-04] MEDS ORDERED: Dextrose 50% SYRINGE Inj (50 ml) IV STA (06:54)
[2018-09-04] MEDS: (Novolin R) Insulin Human Regular 100 units/ml vial SC SCH ×4 (08:45→22:05)
[2018-09-04] MEDS ORDERED: Epoetin Alfa 4000 UNIT/ML Inj IV SCH (10:00)
[2018-09-04] MEDS: Ranolazine 500 mg Extended Release Tablets PO SCH ×2 (11:12→18:34)
[2018-09-04] MEDS: Pantoprazole 20 mg EC Tab PO SCH (11:14)
[2018-09-04] MEDS: Insulin Detemir 100 units/ml Vial (Levemir) SC SCH (11:16)
[2018-09-04] MEDS: Multivitamin Vitamin B Complex (Nephro-Vite) Tab PO SCH (11:16)
--- NOTE | 2018-09-04 12:44 | CP.PCM.PN ---
Subjective - Date & Time of Evaluation Date of Evaluation: 09/04/18 Time of Evaluation: 12:41 - Subjective Subjective: Mild cough Chest congestion No CP No diaphoresis, fevers or chills Alert/awake: no acute distress Objective - Vital Signs/Intake and Output Vital Signs (last 24 hours): Temp Pulse Resp BP Pulse Ox 97.6 F 70 20 116/70 94 L 09/04/18 07:00 09/04/18 07:00 09/04/18 07:00 09/04/18 11:12 09/04/18 07:00 Intake and Output: 09/04/18 09/04/18 06:59 18:59 Intake Total 240 Balance 240 - Medications Medications: Current Medications Albuterol/Ipratropium (Duoneb 3 Mg/0.5 Mg (3 Ml) Ud) 3 ml IH RQ4 [facility] Last Admin: 09/04/18 07:49 Dose: Not Given Amiodarone HCl (Cordarone) 200 mg PO DAILY [facility] Last Admin: 09/04/18 11:12 Dose: 200 mg Apixaban (Eliquis) 2.5 mg PO BID [facility] Last Admin: 09/04/18 11:13 Dose: 2.5 mg Aspirin (Aspirin Chewable) 81 mg PO DAILY [facility] Last Admin: 09/04/18 11:14 Dose: 81 mg Calcitriol (Rocaltrol) 0.25 mcg PO TTS [facility] Last Admin: 09/04/18 11:14 Dose: 0.25 mcg Calcium Carbonate (Oscal) 500 mg PO BID [facility] Last Admin: 09/04/18 11:13 Dose: 500 mg Carvedilol (Coreg) 12.5 mg PO BID [facility] Last Admin: 09/04/18 11:12 Dose: 12.5 mg Cinacalcet (Sensipar) 60 mg PO QPM [facility] Last Admin: 09/03/18 18:19 Dose: Not Given Clopidogrel Bisulfate (Plavix) 75 mg PO DAILY [facility] Last Admin: 09/04/18 11:13 Dose: 75 mg Dextrose (Dextrose 50% Inj) 0 ml IV STAT PRN; Protocol PRN Reason: Hypoglycemia Protocol Last Admin: 09/04/18 07:05 Dose: 50 ml Dextrose (Glutose 15) 0 gm PO ONCE PRN; Protocol PRN Reason: Hypoglycemia Protocol Diltiazem HCl (Cardizem) 30 mg PO QID [facility] Last Admin: 09/04/18 11:15 Dose: 30 mg Docusate Sodium (Colace) 100 mg PO PRN PRN PRN Reason: Constipation Epoetin Tom (Procrit) 4,000 unit IV TTS [facility] Ergocalciferol (Drisdol 50,000 Intl Units Cap) 1 cap PO Q7D [facility] Last Admin: 09/03/18 09:44 Dose: 1 cap Glucagon (Glucagen Diagnostic Kit) 0 mg IM STAT PRN; Protocol PRN Reason: Hypoglycemia Protocol Hydromorphone HCl (Dilaudid) 2 mg IVP Q6H PRN PRN Reason: Pain, severe (8-10) Last Admin: 09/04/18 11:20 Dose: 2 mg Dextrose (Dextrose 5% In Water 1000 Ml) 1,000 mls @ 0 mls/hr IV .Q0M PRN; Protocol PRN Reason: Hypoglycemia Protocol Insulin Detemir (Levemir) 22 unit SC DAILY [facility] Last Admin: 09/04/18 11:16 Dose: 22 units Insulin Glargine (Lantus) 8 unit SC HS [facility] Last Admin: 09/03/18 22:38 Dose: 8 units Insulin Human Regular (Novolin R) 0 unit SC ACHS [facility]; Protocol Last Admin: 09/04/18 12:04 Dose: 1 units Isosorbide Mononitrate (Imdur) 60 mg PO DAILY [facility] Last Admin: 09/04/18 11:13 Dose: 60 mg Levetiracetam (Keppra) 500 mg PO BID [facility] Last Admin: 09/04/18 11:14 Dose: 500 mg Montelukast Sodium (Singulair) 10 mg PO DAILY [facility] Last Admin: 09/04/18 11:12 Dose: 10 mg Pantoprazole Sodium (Protonix Ec Tab) 20 mg PO DAILY [facility] Last Admin: 09/04/18 11:14 Dose: 20 mg Ranolazine (Ranexa) 500 mg PO BID [facility] Last Admin: 09/04/18 11:12 Dose: 500 mg Sertraline HCl (Zoloft) 50 mg PO DAILY [facility] Last Admin: 09/04/18 11:13 Dose: 50 mg Sevelamer Carbonate (Renvela) 1,600 mg PO TIDCC [facility] Last Admin: 09/04/18 12:05 Dose: 1,600 mg Valproate Sodium (Depakene Cap) 250 mg PO QID [facility] Last Admin: 09/04/18 11:15 Dose: 250 mg Vitamin B Complex/Vit C/Folic Acid (Nephro-Courtney) 1 tab PO 0800 [facility] Last Admin: 09/04/18 11:16 Dose: 1 tab - Labs Labs: 09/02/18 18:44 09/02/18 18:44 - Constitutional Appears: No Acute Distress, Chronically Ill - Head Exam Head Exam: ATRAUMATIC, NORMAL INSPECTION, NORMOCEPHALIC - Eye Exam Eye Exam: absent: Normal appearance, Scleral icterus - ENT Exam ENT Exam: Mucous Membranes Moist, Normal Oropharynx - Neck Exam Neck Exam: Full ROM, Normal Inspection, Thyromegaly. absent: Tenderness - Respiratory Exam Respiratory Exam: Rhonchi, NORMAL BREATHING PATTERN. absent: Wheezes - Cardiovascular Exam Cardiovascular Exam: REGULAR RHYTHM, +S1, +S2, Murmur. absent: Gallop - GI/Abdominal Exam GI & Abdominal Exam: Soft. absent: Tenderness - Extremities Exam Extremities Exam: absent: Normal Inspection (B/L BKA) - Neurological Exam Neurological Exam: Alert, Awake, Oriented x3 - Psychiatric Exam Psychiatric exam: Depressed, Normal Affect - Skin Skin Exam: Intact, Normal Color, Warm Assessment and Plan - Assessment and Plan (Free Text) Assessment: 38 year old woman transgender chest pain, HTN, hyperkalemia, hypergylemia and PNA/URI sxs on admission > EKG: NSR, LVH with strain pattern ESRD on HD to help correct and maintain lytes and fluid balance PVD severe s/p bilateral BKA's, now with skin breadown in the amputation sites monitor DM is labile and brittle on insulin HTN is chornic and stable on coreg, diltiazem 30 QID Norvasc, losartan on hold Atrial flutter/fibrillaiton > suggest eliquis 5mg po BID for CVA prophylaxsis and for prior intracardiac thrombus, continue amiodarone for rhythm control Angina s/p CABG now with failed grafts and multiple PCI now non revascularizable, ranexa and imdur for chronic stable angina, on plavix, ASA and eliquis I would d/c plavix due to risk of bleeding and continue DOAC at 5mg BID SOB/Cough/URI and infiltrate on CXR: on ABX: clinically improved
[2018-09-04 14:31] LABS: BASO % 0.5 % (0.0-2.0); EOS # 0.7 K/uL (0.0-0.7); EOS % 6.4 % (0.0-4.0); HEMOGLOBIN 7.9 g/dL (12.0-18.0); LYMPH # 1.8 K/uL (1.0-4.3); LYMPH % 16.9 % (20.0-40.0); MEAN CELL VOLUME 92.1 fL (80.0-94.0); MEAN CORPUSCULAR HGB CONC 31.4 g/dL (33.0-37.0); MEAN PLATELET VOLUME 9.6 fL (7.2-11.7); MONO # 0.7 K/uL (0.0-0.8); MONO % 6.1 % (0.0-10.0); NEUT # 7.6 K/uL (1.8-7.0); NEUT % 70.1 % (50.0-75.0); RBC 2.73 Mil/uL (4.40-5.90); WHITE BLOOD COUNT 10.8 K/uL (4.8-10.8)
--- NOTE | 2018-09-04 15:42 | CP.PCM.PN ---
Subjective - Date & Time of Evaluation Date of Evaluation: 09/04/18 Time of Evaluation: 15:41 - Subjective Subjective: Nephrology Consultation Note: Assessment: stable Pulmonary congestion, fluid overload, HTN urgency chronic chest pain, A flutter Diabetic chronic Kidney Disease (E11.22) Hypertensive Chronic Kidney Disease (I12.0) End stage renal disease (N18.6) dependence on hemodialysis (Z99.2) (TTS) via AVF Anemia (D64.9), Hyperphosphatemia (E83.39), Secondary Hyperparathyroidism (E21.1), HTN (I12.0) CAD s/p CABG, diastolic CHF, parox A flutter/fib, intra-cardiac thrombus, hx of Heparin induced thrombocytopenia, hx of seizure, blindness Plan: plan for dialysis as per TTS schedule Continue with Nephrovite 1 tab/day. not on HANNAH with HD . PRBC As needed for anemia, last Hb 9.6 Continue with phos binders home dose; renvela. continue with calcitriol and sensipar 60 mg/d BP control with meds as ordered. on ARB as losartan (will hold) and d/c norvasc as BP low side Glycemic control, Dialysis consistent diet Further work up/management as per primary team Dose meds/antibiotics for ESRD status. Avoid fleets enema/magnesium based laxatives. Thanks for allowing me to participate in care of your patient. Will follow patient with you. Please call if any Qs. had d/w team Dr Eric Temple Office: [phone] CC: SOB reason for consult: ESRD HPI: Pt is a 38 y/o transgender with hx of ESRD on hemodialysis (TTS) via p ermacath, chronic anemia, hyperphosphatemia, secondary hyperparathyroidism, Diabetes Mellitus, hypertension, CAD s/p CABG, diastolic CHF, pA flutter/fib, intra-cardiac thrombus, Heparin induced thrombocytopenia in past presented with complaints of SOB and chronic chest pain x 1 day. pt with recurrent and frequent hospitalizations for same complaints. ROS: All other negative except as in HPI. has chronic chest pain, c/o SOB. says I am coughing Physical Examination: seen on hd General Appearance: in no acute respiratory distress, co-operative. Head; Atraumatic, normocephalic ENT: no ulcers no thrush. Tongue is midline. Oropharynx: no rash or ulcers. EYES: Pt is blind both eyes Neck; supple no lymphadenopathy, no thyromegaly or bruit Lungs: normal respiratory rate/effort. Breath sounds bilateral with basal crackles Heart: Normal rate. s1s2 normal. No rub or gallop. Extremities: no edema. No varicose veins. has b/l BKA. Neurological: Patient is awake follow commands no focal deficit Skin: Warm and dry. Normal turgor. No rash. Palpitation: Normal elasticity for age Abdomen: Abdomen is soft. Bowel sounds +. There is no abdominal tenderness, no guarding/rigidity or organomegaly Psych: limited insight and has normal affect/mood MSK: no joint tenderness or swelling. Digits and nails normal, no deformity : kidney or bladder not palpable Access: permacath Labs/imaging reviewed. Past medical history, past surgical history, family history, social history, allergy reviewed and noted as below Family Hx: no hx of CKD. Non contributory Objective - Vital Signs/Intake and Output Vital Signs (last 24 hours): Temp Pulse Resp BP Pulse Ox 97.1 F L 70 16 116/50 L 100 09/04/18 13:15 09/04/18 13:15 09/04/18 13:15 09/04/18 14:00 09/04/18 13:15 Intake and Output: 09/04/18 09/04/18 06:59 18:59 Intake Total 240 Balance 240 - Medications Medications: Current Medications Albuterol/Ipratropium (Duoneb 3 Mg/0.5 Mg (3 Ml) Ud) 3 ml IH RQ4 [facility] Last Admin: 09/04/18 12:17 Dose: Not Given Amiodarone HCl (Cordarone) 200 mg PO DAILY [facility] Last Admin: 09/04/18 11:12 Dose: 200 mg Apixaban (Eliquis) 2.5 mg PO BID [facility] Last Admin: 09/04/18 11:13 Dose: 2.5 mg Aspirin (Aspirin Chewable) 81 mg PO DAILY [facility] Last Admin: 09/04/18 11:14 Dose: 81 mg Calcitriol (Rocaltrol) 0.25 mcg PO TTS [facility] Last Admin: 09/04/18 11:14 Dose: 0.25 mcg Calcium Carbonate (Oscal) 500 mg PO BID [facility] Last Admin: 01/03/19 11:13 Dose: 500 mg Carvedilol (Coreg) 12.5 mg PO BID [facility] Last Admin: 09/04/18 11:12 Dose: 12.5 mg Cinacalcet (Sensipar) 60 mg PO QPM [facility] Last Admin: 09/03/18 18:19 Dose: Not Given Clopidogrel Bisulfate (Plavix) 75 mg PO DAILY [facility] Last Admin: 09/04/18 11:13 Dose: 75 mg Dextrose (Dextrose 50% Inj) 0 ml IV STAT PRN; Protocol PRN Reason: Hypoglycemia Protocol Last Admin: 09/04/18 07:05 Dose: 50 ml Dextrose (Glutose 15) 0 gm PO ONCE PRN; Protocol PRN Reason: Hypoglycemia Protocol Diltiazem HCl (Cardizem) 30 mg PO QID [facility] Last Admin: 09/04/18 13:15 Dose: Not Given Docusate Sodium (Colace) 100 mg PO PRN PRN PRN Reason: Constipation Epoetin Tom (Procrit) 4,000 unit IV TTS [facility] Ergocalciferol (Drisdol 50,000 Intl Units Cap) 1 cap PO Q7D [facility] Last Admin: 09/03/18 09:44 Dose: 1 cap Glucagon (Glucagen Diagnostic Kit) 0 mg IM STAT PRN; Protocol PRN Reason: Hypoglycemia Protocol Hydromorphone HCl (Dilaudid) 2 mg IVP Q6H PRN PRN Reason: Pain, severe (8-10) Last Admin: 09/04/18 11:20 Dose: 2 mg Dextrose (Dextrose 5% In Water 1000 Ml) 1,000 mls @ 0 mls/hr IV .Q0M PRN; Protocol PRN Reason: Hypoglycemia Protocol Insulin Detemir (Levemir) 22 unit SC DAILY [facility] Last Admin: 09/04/18 11:16 Dose: 22 units Insulin Glargine (Lantus) 8 unit SC HS [facility] Last Admin: 09/03/18 22:38 Dose: 8 units Insulin Human Regular (Novolin R) 0 unit SC ACHS [facility]; Protocol Last Admin: 09/04/18 12:04 Dose: 1 units Isosorbide Mononitrate (Imdur) 60 mg PO DAILY [facility] Last Admin: 09/04/18 11:13 Dose: 60 mg Levetiracetam (Keppra) 500 mg PO BID [facility] Last Admin: 09/04/18 11:14 Dose: 500 mg Montelukast Sodium (Singulair) 10 mg PO DAILY [facility] Last Admin: 09/04/18 11:12 Dose: 10 mg Pantoprazole Sodium (Protonix Ec Tab) 20 mg PO DAILY [facility] Last Admin: 09/04/18 11:14 Dose: 20 mg Ranolazine (Ranexa) 500 mg PO BID [facility] Last Admin: 09/04/18 11:12 Dose: 500 mg Sertraline HCl (Zoloft) 50 mg PO DAILY [facility] Last Admin: 09/04/18 11:13 Dose: 50 mg Sevelamer Carbonate (Renvela) 1,600 mg PO TIDCC [facility] Last Admin: 09/04/18 12:05 Dose: 1,600 mg Valproate Sodium (Depakene Cap) 250 mg PO QID [facility] Last Admin: 09/04/18 13:16 Dose: Not Given Vitamin B Complex/Vit C/Folic Acid (Nephro-Courtney) 1 tab PO 0800 [facility] Last Admin: 09/04/18 11:16 Dose: 1 tab - Labs Labs: 09/04/18 14:16 09/02/18 18:44
[2018-09-04 16:31] LABS: ALB/GLOB RATIO 1.1 (1.0-2.1); ALBUMIN 3.3 g/dL (3.5-5.0); CALCIUM 7.6 mg/dl (8.6-10.4)
--- NOTE | 2018-09-04 16:43 | CP.PCM.PN ---
Subjective - Date & Time of Evaluation Date of Evaluation: 09/04/18 Time of Evaluation: 16:41 - Subjective Subjective: pt still has cough chest pain Objective - Vital Signs/Intake and Output Vital Signs (last 24 hours): Temp Pulse Resp BP Pulse Ox 97.1 F L 70 16 116/50 L 100 09/04/18 13:15 09/04/18 13:15 09/04/18 13:15 09/04/18 14:00 09/04/18 13:15 Intake and Output: 09/04/18 09/04/18 06:59 18:59 Intake Total 240 Balance 240 - Medications Medications: Current Medications Albuterol/Ipratropium (Duoneb 3 Mg/0.5 Mg (3 Ml) Ud) 3 ml IH RQ4 [facility] Last Admin: 09/04/18 16:39 Dose: Not Given Amiodarone HCl (Cordarone) 200 mg PO DAILY [facility] Last Admin: 09/04/18 11:12 Dose: 200 mg Apixaban (Eliquis) 2.5 mg PO BID [facility] Last Admin: 09/04/18 11:13 Dose: 2.5 mg Aspirin (Aspirin Chewable) 81 mg PO DAILY [facility] Last Admin: 09/04/18 11:14 Dose: 81 mg Calcitriol (Rocaltrol) 0.25 mcg PO TTS [facility] Last Admin: 09/04/18 11:14 Dose: 0.25 mcg Calcium Carbonate (Oscal) 500 mg PO BID [facility] Last Admin: 09/04/18 11:13 Dose: 500 mg Carvedilol (Coreg) 12.5 mg PO BID [facility] Last Admin: 09/04/18 11:12 Dose: 12.5 mg Cinacalcet (Sensipar) 60 mg PO QPM [facility] Last Admin: 09/03/18 18:19 Dose: Not Given Clopidogrel Bisulfate (Plavix) 75 mg PO DAILY [facility] Last Admin: 09/04/18 11:13 Dose: 75 mg Dextrose (Dextrose 50% Inj) 0 ml IV STAT PRN; Protocol PRN Reason: Hypoglycemia Protocol Last Admin: 09/04/18 07:05 Dose: 50 ml Dextrose (Glutose 15) 0 gm PO ONCE PRN; Protocol PRN Reason: Hypoglycemia Protocol Diltiazem HCl (Cardizem) 30 mg PO QID [facility] Last Admin: 09/04/18 13:15 Dose: Not Given Docusate Sodium (Colace) 100 mg PO PRN PRN PRN Reason: Constipation Epoetin Tom (Procrit) 4,000 unit IV TTS [facility] Ergocalciferol (Drisdol 50,000 Intl Units Cap) 1 cap PO Q7D [facility] Last Admin: 09/03/18 09:44 Dose: 1 cap Glucagon (Glucagen Diagnostic Kit) 0 mg IM STAT PRN; Protocol PRN Reason: Hypoglycemia Protocol Hydromorphone HCl (Dilaudid) 2 mg IVP Q6H PRN PRN Reason: Pain, severe (8-10) Last Admin: 09/04/18 11:20 Dose: 2 mg Dextrose (Dextrose 5% In Water 1000 Ml) 1,000 mls @ 0 mls/hr IV .Q0M PRN; Protocol PRN Reason: Hypoglycemia Protocol Insulin Detemir (Levemir) 22 unit SC DAILY [facility] Last Admin: 09/04/18 11:16 Dose: 22 units Insulin Glargine (Lantus) 8 unit SC [facility] Last Admin: 09/03/18 22:38 Dose: 8 units Insulin Human Regular (Novolin R) 0 unit SC [facility]; Protocol Last Admin: 09/04/18 12:04 Dose: 1 units Isosorbide Mononitrate (Imdur) 60 mg PO DAILY [facility] Last Admin: 09/04/18 11:13 Dose: 60 mg Levetiracetam (Keppra) 500 mg PO BID [facility] Last Admin: 09/04/18 11:14 Dose: 500 mg Montelukast Sodium (Singulair) 10 mg PO DAILY [facility] Last Admin: 09/04/18 11:12 Dose: 10 mg Pantoprazole Sodium (Protonix Ec Tab) 20 mg PO DAILY [facility] Last Admin: 09/04/18 11:14 Dose: 20 mg Ranolazine (Ranexa) 500 mg PO BID [facility] Last Admin: 09/04/18 11:12 Dose: 500 mg Sertraline HCl (Zoloft) 50 mg PO DAILY [facility] Last Admin: 09/04/18 11:13 Dose: 50 mg Sevelamer Carbonate (Renvela) 1,600 mg PO TIDCC [facility] Last Admin: 09/04/18 12:05 Dose: 1,600 mg Valproate Sodium (Depakene Cap) 250 mg PO QID [facility] Last Admin: 09/04/18 13:16 Dose: Not Given Vitamin B Complex/Vit C/Folic Acid (Nephro-Courtney) 1 tab PO 0800 [facility] Last Admin: 09/04/18 11:16 Dose: 1 tab - Labs Labs: 09/04/18 14:16 09/04/18 14:16 - Constitutional Appears: Non-toxic, In Acute Distress - Head Exam Head Exam: ATRAUMATIC - Eye Exam Eye Exam: Conjunctival injection - ENT Exam ENT Exam: Normal External Ear Exam - Neck Exam Neck Exam: Full ROM - Respiratory Exam Respiratory Exam: Decreased Breath Sounds, Rales - Cardiovascular Exam Cardiovascular Exam: Irregular Rhythm - GI/Abdominal Exam GI & Abdominal Exam: Normal Bowel Sounds - Back Exam Back Exam: CVA tenderness (L) - Neurological Exam Neurological Exam: Alert, Awake, Oriented x3 - Psychiatric Exam Psychiatric exam: Normal Affect - Skin Skin Exam: Pallor Assessment and Plan - Assessment and Plan (Free Text) Assessment: ac bronchitis copd exacerbation chest pain cad esrf dmid Plan: cont as oer orders
[2018-09-04] MEDS: (Lantus) Insulin Glargine, Recombinant SC SCH (22:38)
[2018-09-05] MEDS: Albuterol-Ipratrop 3 mg / 0.5 (3 ml) UD IH SCH ×6 (04:00→19:37)
[2018-09-05] MEDS ORDERED: Naloxone 0.4 mg/ml Inj (Adult) ONE ×2 (04:39→04:45)
[2018-09-05] MEDS ORDERED: Naloxone 0.4 mg/ml Inj (Adult) IVP ONE (05:08)
--- NOTE | 2018-09-05 05:11 | PCM.RRT ---
CIVIL ENGINEERING PROFESSOR Nurses Assessment - Situation Date: 09/05/18 Time CIVIL ENGINEERING PROFESSOR was called: 04:30 CIVIL ENGINEERING PROFESSOR Responder Arrival Time:: 04:30 CIVIL ENGINEERING PROFESSOR Location:: Med/Surg Room Number: 672 CIVIL ENGINEERING PROFESSOR Reason for Call: Bradycardia, Respiratory Distress, Not Responding to Urgent Treatment, Change in Mental Status CIVIL ENGINEERING PROFESSOR Called By: RN - Respiratory CIVIL ENGINEERING PROFESSOR Delivery Method: Nasal Cannula @L/min Oxygen Flow Rate: 3 Received Nebulizer Treatments: No - Medication Medications Administered During CIVIL ENGINEERING PROFESSOR: naloxone .4mg ivp - Diagnostic Test Ordered EKG: Yes Chest X-Ray: Yes - Stat Labs Ordered CIVIL ENGINEERING PROFESSOR Stat Labs Ordered: TROPONIN CPR started during CIVIL ENGINEERING PROFESSOR?: No - Vital Signs Vital Signs: HR in the 30s Other vitals unobtainable, not picking up a read - Saurav Coma Scale Coma Scale Eye Opening: To pain - Recommendations 5) CIVIL ENGINEERING PROFESSOR Level of Care Recommendations: Remain in current setting Notifications: Attending Physician I.Reason for CIVIL ENGINEERING PROFESSOR - A) Acute Change in Patient: (Select all that apply): Staff member or family is worried about patient, Acute change in mental status, Acute change in heart rate less than 50 or greater than 120, Acute change in SBP below, Acute change in SpO2 less Subjective: CIVIL ENGINEERING PROFESSOR called at 4:30am after nursing noticed pt's heart rate on telemetry had dropped from 40s into the 30s for several minutes. CIVIL ENGINEERING PROFESSOR called for bradycardia, respiratory depression, and acute change in mental status. Upon evaluation, pt was lethargic, pupils constricted, and pt was minimally responsive to stimuli. Naloxone ordered after learning pt recieved dilaudid 2mg. Pt then began vomiting, and was seated upright to avoid aspiration. Suction setup ordered. Naxolone .4mg ivp administered, and pt slowly became more arousable and responsive. Vitals able to be assessed, BP 133/74, HR 71, O2 98% on 3L NC. Patient stabilized. Orders for CXR, EKG, troponin were placed. Dr. Li notified. - Neurological Status (Select all that apply): Disoriented, Lethargic - Respiratory Oxygen Delivery Method: Nasal Cannula @L/min - Constitutional Appears: In Acute Distress - Head Head Exam: ATRAUMATIC, NORMAL INSPECTION, NORMOCEPHALIC - Eyes Eye Exam: absent: EOMI - Respiratory Exam Respiratory Exam: Respiratory Distress - Cardiovascular Exam Cardiovascular Exam: Bradycardia - Neurological Exam Neurological Exam: Altered - Extremities Exam Extremities Exam: absent: Normal Inspection (BKA B/L) Additional comments: Cold to touch Plan - Assessment of Findings&Treatment Plan Respiratory depression 2/2 opiate overdose -pt given naloxone .4mg ivp -dilaudid 2mg ivp placed on hold -troponin/EKG ordered -CXR ordered to rule out aspiration 2/2 vomiting -suction on I spoke with Dr. Li, admitting physician, who agrees with plan Discussed with Dr. Estefany Cardenas
--- NOTE | 2018-09-05 08:35 | RAD ---
Date of service: 09/05/2018 HISTORY: possible aspiration COMPARISON: 09/02/2018. FINDINGS: Right-sided dialysis catheter overlies the right upper quadrant and likely terminates in the IVC. LUNGS: The lungs are well inflated. There is an apparent left retrocardiac opacity with air bronchogram. There is mild pulmonary venous congestion improved since the prior examination. PLEURA: No pleural effusions or pneumothorax. CARDIOVASCULAR: Persistent moderate cardiomegaly. No aortic atherosclerotic calcification present. Status post CABG with OSSEOUS STRUCTURES: Within normal limits for the patient's age. VISUALIZED UPPER ABDOMEN: Normal. OTHER FINDINGS: None. IMPRESSION: Stable position of right-sided dialysis catheter likely terminating in the IVC. Apparent left retrocardiac opacity with air bronchogram may represent atelectasis/pneumonia. Follow-up is advised. Persistent moderate cardiomegaly and improving mild pulmonary venous congestion
[2018-09-05] MEDS: Multivitamin Vitamin B Complex (Nephro-Vite) Tab PO SCH (09:04)
[2018-09-05] MEDS: (Novolin R) Insulin Human Regular 100 units/ml vial SC SCH ×4 (09:04→21:56)
[2018-09-05] MEDS: Pantoprazole 20 mg EC Tab PO SCH (09:09)
[2018-09-05] MEDS: Ranolazine 500 mg Extended Release Tablets PO SCH ×2 (09:09→18:11)
[2018-09-05] MEDS: Insulin Detemir 100 units/ml Vial (Levemir) SC SCH (09:09)
--- NOTE | 2018-09-05 10:19 | CP.PCM.PN ---
Subjective - Date & Time of Evaluation Date of Evaluation: 09/05/18 Time of Evaluation: 10:16 - Subjective Subjective: pt had bradycardia and became unresponsive during night now vss sleepy but responsaive Objective - Vital Signs/Intake and Output Vital Signs (last 24 hours): Temp Pulse Resp BP Pulse Ox 97.2 F L 64 18 98/61 L 100 09/05/18 07:55 09/05/18 07:55 09/05/18 07:55 09/05/18 09:07 09/05/18 07:55 Intake and Output: 09/05/18 09/05/18 06:59 18:59 Intake Total 500 Balance 500 - Medications Medications: Current Medications Albuterol/Ipratropium (Duoneb 3 Mg/0.5 Mg (3 Ml) Ud) 3 ml IH RQ4 [facility] Last Admin: 09/05/18 08:49 Dose: Not Given Amiodarone HCl (Cordarone) 200 mg PO DAILY [facility] Last Admin: 09/05/18 09:06 Dose: Not Given Apixaban (Eliquis) 2.5 mg PO BID [facility] Last Admin: 09/05/18 09:24 Dose: 2.5 mg Aspirin (Aspirin Chewable) 81 mg PO DAILY [facility] Last Admin: 09/05/18 09:25 Dose: 81 mg Calcitriol (Rocaltrol) 0.25 mcg PO TTS [facility] Last Admin: 09/04/18 11:14 Dose: 0.25 mcg Calcium Carbonate (Oscal) 500 mg PO BID [facility] Last Admin: 09/05/18 09:09 Dose: Not Given Carvedilol (Coreg) 12.5 mg PO BID [facility] Last Admin: 09/05/18 09:07 Dose: Not Given Cinacalcet (Sensipar) 60 mg PO QPM [facility] Last Admin: 09/04/18 18:33 Dose: 60 mg Clopidogrel Bisulfate (Plavix) 75 mg PO DAILY [facility] Last Admin: 09/05/18 09:25 Dose: 75 mg Dextrose (Dextrose 50% Inj) 0 ml IV STAT PRN; Protocol PRN Reason: Hypoglycemia Protocol Last Admin: 09/04/18 07:05 Dose: 50 ml Dextrose (Glutose 15) 0 gm PO ONCE PRN; Protocol PRN Reason: Hypoglycemia Protocol Diltiazem HCl (Cardizem) 30 mg PO QID [facility] Last Admin: 09/05/18 09:06 Dose: Not Given Docusate Sodium (Colace) 100 mg PO PRN PRN PRN Reason: Constipation Epoetin Tom (Procrit) 4,000 unit IV TTS [facility] Ergocalciferol (Drisdol 50,000 Intl Units Cap) 1 cap PO Q7D [facility] Last Admin: 09/03/18 09:44 Dose: 1 cap Glucagon (Glucagen Diagnostic Kit) 0 mg IM STAT PRN; Protocol PRN Reason: Hypoglycemia Protocol Dextrose (Dextrose 5% In Water 1000 Ml) 1,000 mls @ 0 mls/hr IV .Q0M PRN; Protocol PRN Reason: Hypoglycemia Protocol Insulin Detemir (Levemir) 22 unit SC DAILY [facility] Last Admin: 09/05/18 09:09 Dose: Not Given Insulin Glargine (Lantus) 8 unit SC HS [facility] Last Admin: 09/04/18 22:38 Dose: 8 units Insulin Human Regular (Novolin R) 0 unit SC ACHS [facility]; Protocol Last Admin: 09/05/18 09:04 Dose: Not Given Isosorbide Mononitrate (Imdur) 60 mg PO DAILY [facility] Last Admin: 09/05/18 09:10 Dose: Not Given Levetiracetam (Keppra) 500 mg PO BID [facility] Last Admin: 09/05/18 09:25 Dose: 500 mg Montelukast Sodium (Singulair) 10 mg PO DAILY [facility] Last Admin: 09/05/18 09:08 Dose: Not Given Pantoprazole Sodium (Protonix Ec Tab) 20 mg PO DAILY [facility] Last Admin: 09/05/18 09:09 Dose: Not Given Ranolazine (Ranexa) 500 mg PO BID [facility] Last Admin: 09/05/18 09:09 Dose: Not Given Sertraline HCl (Zoloft) 50 mg PO DAILY [facility] Last Admin: 09/05/18 09:08 Dose: Not Given Sevelamer Carbonate (Renvela) 1,600 mg PO TIDCC [facility] Last Admin: 09/05/18 09:04 Dose: Not Given Valproate Sodium (Depakene Cap) 250 mg PO QID [facility] Last Admin: 09/05/18 09:25 Dose: 250 mg Vitamin B Complex/Vit C/Folic Acid (Nephro-Courtney) 1 tab PO 0800 [facility] Last Admin: 09/05/18 09:04 Dose: Not Given - Labs Labs: 09/04/18 14:16 09/04/18 14:16 - Constitutional Appears: Non-toxic - Head Exam Head Exam: ATRAUMATIC - Eye Exam Eye Exam: Conjunctival injection - ENT Exam ENT Exam: Mucous Membranes Moist - Neck Exam Neck Exam: Full ROM - Respiratory Exam Respiratory Exam: Decreased Breath Sounds - GI/Abdominal Exam GI & Abdominal Exam: Soft - Back Exam Back Exam: CVA tenderness (L), NORMAL INSPECTION - Neurological Exam Neurological Exam: Oriented x3 - Psychiatric Exam Psychiatric exam: Normal Affect - Skin Skin Exam: Pallor Assessment and Plan - Assessment and Plan (Free Text) Assessment: s/p bradycardia unresponsive improved esrf dm copd chf Plan: d/c diludid
[2018-09-05] MEDS ORDERED: Acetaminophen 650mg/20.3ml solution UD PO PRN (10:24)
--- NOTE | 2018-09-05 15:12 | CP.PCM.PN ---
Subjective - Date & Time of Evaluation Date of Evaluation: 09/05/18 Time of Evaluation: 15:10 - Subjective Subjective: Nephrology Consultation Note: Assessment: stable Pulmonary congestion, fluid overload, HTN urgency chronic chest pain, A flutter Diabetic chronic Kidney Disease (E11.22) Hypertensive Chronic Kidney Disease (I12.0) End stage renal disease (N18.6) dependence on hemodialysis (Z99.2) (TTS) via AVF Anemia (D64.9), Hyperphosphatemia (E83.39), Secondary Hyperparathyroidism (E21.1), HTN (I12.0) CAD s/p CABG, diastolic CHF, parox A flutter/fib, intra-cardiac thrombus, hx of Heparin induced thrombocytopenia, hx of seizure, blindness Plan: extra HD today then plan for dialysis as per TTS schedule Continue with Nephrovite 1 tab/day. not on HANNAH with HD . PRBC As needed for anemia, last Hb 9.6 Continue with phos binders home dose; renvela. continue with calcitriol and sensipar 60 mg/d BP control with meds as ordered. on ARB as losartan (will hold) and d/c norvasc as BP low side Glycemic control, Dialysis consistent diet Further work up/management as per primary team Dose meds/antibiotics for ESRD status. Avoid fleets enema/magnesium based laxatives. consider pain management consult Thanks for allowing me to participate in care of your patient. Will follow patient with you. Please call if any Qs. had d/w team Dr Eric Temple Office: [phone] CC: SOB reason for consult: ESRD HPI: Pt is a 38 y/o transgender with hx of ESRD on hemodialysis (TTS) via permacath, chronic anemia, hyperphosphatemia, secondary hyperparathyroidism, Diabetes Mellitus, hypertension, CAD s/p CABG, diastolic CHF, pA flutter/fib, intra-cardiac thrombus, Heparin induced thrombocytopenia in past presented with complaints of SOB and chronic chest pain x 1 day. pt with recurrent and frequent hospitalizations for same complaints. ROS: All other negative except as in HPI. has chronic chest pain, c/o SOB. says I am coughing feels sleepy. 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 Head; Atraumatic, normocephalic ENT: no ulcers no thrush. Tongue is midline. Oropharynx: no rash or ulcers. EYES: Pt is blind both eyes Neck; supple no lymphadenopathy, no thyromegaly or bruit Lungs: normal respiratory rate/effort. Breath sounds bilateral with basal crackles and wheeze Heart: Normal rate. s1s2 normal. No rub or gallop. Extremities: no edema. No varicose veins. has b/l BKA. Neurological: Patient is sleepy Skin: Warm and dry. Normal turgor. No rash. Palpitation: Normal elasticity for age Abdomen: Abdomen is soft. Bowel sounds +. There is no abdominal tenderness, no guarding/rigidity or organomegaly Psych: limited insight and has normal affect/mood MSK: no joint tenderness or swelling. Digits and nails normal, no deformity : kidney or bladder not palpable Access: permacath Labs/imaging reviewed. Past medical history, past surgical history, family history, social history, allergy reviewed and noted as below Family Hx: no hx of CKD. Non contributory Objective - Vital Signs/Intake and Output Vital Signs (last 24 hours): Temp Pulse Resp BP Pulse Ox 97.2 F L 66 18 98/61 L 100 09/05/18 07:55 09/05/18 09:00 09/05/18 07:55 09/05/18 09:07 09/05/18 07:55 Intake and Output: 09/05/18 09/05/18 06:59 18:59 Intake Total 500 Balance 500 - Medications Medications: Current Medications Acetaminophen (Tylenol 650mg/20.3ml Solution Ud) 650 mg PO Q6 PRN PRN Reason: Pain, moderate (4-7) Albuterol/Ipratropium (Duoneb 3 Mg/0.5 Mg (3 Ml) Ud) 3 ml IH RQ4 [facility] Last Admin: 09/05/18 11:36 Dose: Not Given Amiodarone HCl (Cordarone) 200 mg PO DAILY [facility] Last Admin: 09/05/18 09:06 Dose: Not Given Amlodipine Besylate (Norvasc) 10 mg PO DAILY [facility] Last Admin: 09/05/18 10:45 Dose: Not Given Apixaban (Eliquis) 2.5 mg PO BID [facility] Last Admin: 09/05/18 09:24 Dose: 2.5 mg Aspirin (Aspirin Chewable) 81 mg PO DAILY [facility] Last Admin: 09/05/18 09:25 Dose: 81 mg Calcitriol (Rocaltrol) 0.25 mcg PO TTS [facility] Last Admin: 09/04/18 11:14 Dose: 0.25 mcg Calcium Carbonate (Oscal) 500 mg PO BID [facility] Last Admin: 09/05/18 09:09 Dose: Not Given Carvedilol (Coreg) 12.5 mg PO BID [facility] Last Admin: 09/05/18 09:07 Dose: Not Given Cinacalcet (Sensipar) 60 mg PO QPM [facility] Last Admin: 09/04/18 18:33 Dose: 60 mg Clopidogrel Bisulfate (Plavix) 75 mg PO DAILY [facility] Last Admin: 09/05/18 09:25 Dose: 75 mg Dextrose (Dextrose 50% Inj) 0 ml IV STAT PRN; Protocol PRN Reason: Hypoglycemia Protocol Last Admin: 09/04/18 07:05 Dose: 50 ml Dextrose (Glutose 15) 0 gm PO ONCE PRN; Protocol PRN Reason: Hypoglycemia Protocol Docusate Sodium (Colace) 100 mg PO PRN PRN PRN Reason: Constipation Epoetin Tom (Procrit) 10,000 unit IV [facility] Ergocalciferol (Drisdol 50,000 Intl Units Cap) 1 cap PO Q7D [facility] Last Admin: 09/03/18 09:44 Dose: 1 cap Glucagon (Glucagen Diagnostic Kit) 0 mg IM STAT PRN; Protocol PRN Reason: Hypoglycemia Protocol Dextrose (Dextrose 5% In Water 1000 Ml) 1,000 mls @ 0 mls/hr IV .Q0M PRN; Protocol PRN Reason: Hypoglycemia Protocol Insulin Detemir (Levemir) 22 unit SC DAILY [facility] Last Admin: 09/05/18 09:09 Dose: Not Given Insulin Glargine (Lantus) 8 unit SC HS [facility] Last Admin: 09/04/18 22:38 Dose: 8 units Insulin Human Regular (Novolin R) 0 unit SC ACHS [facility]; Protocol Last Admin: 09/05/18 11:23 Dose: Not Given Isosorbide Mononitrate (Imdur) 60 mg PO DAILY [facility] Last Admin: 09/05/18 09:10 Dose: Not Given Levetiracetam (Keppra) 500 mg PO BID [facility] Last Admin: 09/05/18 09:25 Dose: 500 mg Montelukast Sodium (Singulair) 10 mg PO DAILY [facility] Last Admin: 09/05/18 09:08 Dose: Not Given Ondansetron HCl (Zofran Inj) 4 mg IVP Q6H PRN PRN Reason: Nausea/Vomiting Pantoprazole Sodium (Protonix Ec Tab) 20 mg PO DAILY [facility] Last Admin: 09/05/18 09:09 Dose: Not Given Ranolazine (Ranexa) 500 mg PO BID [facility] Last Admin: 09/05/18 09:09 Dose: Not Given Sertraline HCl (Zoloft) 50 mg PO DAILY [facility] Last Admin: 09/05/18 09:08 Dose: Not Given Sevelamer Carbonate (Renvela) 1,600 mg PO TIDCC [facility] Last Admin: 09/05/18 11:22 Dose: Not Given Valproate Sodium (Depakene Cap) 250 mg PO QID [facility] Last Admin: 09/05/18 14:31 Dose: 250 mg Vitamin B Complex/Vit C/Folic Acid (Nephro-Courtney) 1 tab PO 0800 [facility] Last Admin: 09/05/18 09:04 Dose: Not Given - Labs Labs: 09/04/18 14:16 09/04/18 14:16
[2018-09-05] MEDS: (Lantus) Insulin Glargine, Recombinant SC SCH (21:56)
[2018-09-06] MEDS: Albuterol-Ipratrop 3 mg / 0.5 (3 ml) UD IH SCH ×5 (00:35→19:40)
--- NOTE | 2018-09-06 02:27 | CON ---
DATE: 09/05/2018 CHIEF COMPLAINT AND REASON FOR CONSULTATION: The patient was referred by Dr. Sybil Li for evaluation of depression, anxiety and dependence on pain meds. HISTORY OF PRESENT ILLNESS: A case of a 38-year-old male who is well known to me through the years with history of depression, anxiety, and dependence to opiate medication. The patient was admitted here complaining of chest pain. The patient was referred for comanagement as the patient has history of depression, anxiety and has been taking Zoloft. He has also history of chronic insomnia and was taking Restoril in the past. The patient was referred for comanagement. According to the nurse, the patient had rapid response, called earlier today as the patient was noted to be distressed, not very responsive and bradykinetic. He was taken off narcotics. He was taking Dilaudid 2 mg every 6 hours p.r.n. together with the Zoloft. Today, he is much better. The patient wanted to go home to his family, his father. He was earlier reporting issues with his dad, but he said it has been resolved. Today, he is off narcotic medication, although he has been dependent in the past and taking Zoloft and stated he will be going home with tramadol. PAST PSYCHIATRIC HISTORY: He has a long history of depression, anxiety, mood disorder, history of drug-induced delirium from taking too much narcotics. The patient used to have visual hallucinations seeing tigers whenever he takes too much narcotic pain meds. PAST MEDICAL HISTORY: History of diabetes, atrial fibrillation, CAD, CHF, CVA, thyroid problems, hypertension. He is a dialysis patient, history of CABG. DRUG AND ALCOHOL HISTORY: He denies any, although he has been dependent on narcotic medication for years, the patient just takes Dilaudid. ALLERGIES: THE PATIENT IS ALLERGIC TO ATENOLOL, DIGOXIN, MILK, MORPHINE, OXYCODONE, EGGS. SOCIAL HISTORY: He is disabled. He lives with his dad who is taking care of him. REVIEW OF SYSTEMS: The patient is alert, verbal, seen today, seen in his room. He wanted to go home. PHYSICAL EXAMINATION: VITAL SIGNS: Temperature is 97.2, pulse 64, blood pressure 98/61, respirations 18, oxygen saturation is 100%. SKIN: No diaphoresis. HEENT: The patient is legally blind. No headaches. NECK: Supple. RESPIRATORY: No dyspnea. CARDIOVASCULAR: No chest pain. GASTROINTESTINAL: No nausea, no vomiting. EXTREMITIES: The patient is an amputee. He has chronic pain in his lower extremities. GENITOURINARY: No dysuria. NEUROLOGIC: Alert and oriented x3. MENTAL STATUS EXAMINATION: Well-developed male, looks stated age, seen in his room, about 5 feet, weighs 162 pounds. Mood is chronically anxious, med seeking, depressed. Affect is reactive. Speech is spontaneous. Thought process, coherent. Thought content, patient wants to go home. The patient states that he does not want to go to the subacute rehab. No psychosis. No suicidal ideation. Attention and memory seem to be fair. Insight and judgment limited. Impulse control is fair at this time. IMPRESSION: History of depression, anxiety and drug-induced delirium as well as opiate dependence. PLAN AND RECOMMENDATIONS: The patient seen, medications reviewed. Continue present management. I agreed to keep patient off narcotics for now; however, if the patient will be going home with tramadol p.r.n. suggest to discontinue the Zoloft to avoid serotonin syndrome as a side effect if Zoloft being an SSRI will be given together with tramadol. The patient may need tramadol, but if the patient will be discharged with tramadol, suggest to discontinue the Zoloft for now. Thank you very much for the consult. Dale Joseph MD
[2018-09-06] MEDS: (Novolin R) Insulin Human Regular 100 units/ml vial SC SCH ×4 (09:00→22:38)
[2018-09-06] MEDS ORDERED: EPOETIN ALFA 4,000 UNIT/ML ML Dialysis IV SCH (10:00)
[2018-09-06] MEDS: Epoetin Alfa 10,000 unit/ml Dialysis IV SCH (10:42)
[2018-09-06] MEDS: Insulin Detemir 100 units/ml Vial (Levemir) SC SCH (11:00)
[2018-09-06] MEDS: Ranolazine 500 mg Extended Release Tablets PO SCH ×2 (11:00→18:42)
[2018-09-06] MEDS: Pantoprazole 20 mg EC Tab PO SCH (11:00)
[2018-09-06] MEDS: Multivitamin Vitamin B Complex (Nephro-Vite) Tab PO SCH (11:00)
--- NOTE | 2018-09-06 13:18 | CP.PCM.PN ---
Subjective - Date & Time of Evaluation Date of Evaluation: 09/06/18 Time of Evaluation: 13:15 - Subjective Subjective: pt feels weeke stomack hurts coughing sob chest pain unable to feed himself Objective - Vital Signs/Intake and Output Vital Signs (last 24 hours): Temp Pulse Resp BP Pulse Ox 99 F 83 18 119/64 100 09/06/18 09:30 09/06/18 12:35 09/06/18 12:35 09/06/18 12:35 09/06/18 09:30 Intake and Output: 09/06/18 09/06/18 06:59 18:59 Intake Total 150 Balance 150 - Medications Medications: Current Medications Acetaminophen (Tylenol 650mg/20.3ml Solution Ud) 650 mg PO Q6 PRN PRN Reason: Pain, moderate (4-7) Albuterol/Ipratropium (Duoneb 3 Mg/0.5 Mg (3 Ml) Ud) 3 ml IH RQ4 [facility] Last Admin: 09/06/18 11:15 Dose: Not Given Amiodarone HCl (Cordarone) 200 mg PO DAILY [facility] Last Admin: 09/06/18 10:58 Dose: Not Given Amlodipine Besylate (Norvasc) 10 mg PO DAILY [facility] Last Admin: 09/06/18 11:00 Dose: Not Given Apixaban (Eliquis) 2.5 mg PO BID [facility] Last Admin: 09/06/18 10:59 Dose: Not Given Aspirin (Aspirin Chewable) 81 mg PO DAILY [facility] Last Admin: 09/06/18 10:58 Dose: Not Given Calcitriol (Rocaltrol) 0.25 mcg PO TTS [facility] Last Admin: 09/06/18 11:01 Dose: Not Given Calcium Carbonate (Oscal) 500 mg PO BID [facility] Last Admin: 09/06/18 11:00 Dose: Not Given Carvedilol (Coreg) 12.5 mg PO BID [facility] Last Admin: 09/06/18 10:58 Dose: Not Given Cinacalcet (Sensipar) 60 mg PO QPM [facility] Last Admin: 09/05/18 18:12 Dose: Not Given Clopidogrel Bisulfate (Plavix) 75 mg PO DAILY [facility] Last Admin: 09/06/18 11:00 Dose: Not Given Dextrose (Dextrose 50% Inj) 0 ml IV STAT PRN; Protocol PRN Reason: Hypoglycemia Protocol Last Admin: 09/04/18 07:05 Dose: 50 ml Dextrose (Glutose 15) 0 gm PO ONCE PRN; Protocol PRN Reason: Hypoglycemia Protocol Docusate Sodium (Colace) 100 mg PO PRN PRN PRN Reason: Constipation Epoetin Tom (Procrit) 10,000 unit IV TTS [facility] Last Admin: 09/06/18 10:42 Dose: 10,000 unit Ergocalciferol (Drisdol 50,000 Intl Units Cap) 1 cap PO Q7D [facility] Last Admin: 09/03/18 09:44 Dose: 1 cap Glucagon (Glucagen Diagnostic Kit) 0 mg IM STAT PRN; Protocol PRN Reason: Hypoglycemia Protocol Heparin Sodium (Porcine) (Heparin) 3,700 units IVP [facility] Stop: 09/12/18 23:59 Last Admin: 09/06/18 12:00 Dose: 3,700 units Insulin Detemir (Levemir) 22 unit SC DAILY [facility] Last Admin: 09/06/18 11:00 Dose: Not Given Insulin Glargine (Lantus) 8 unit SC [facility] Last Admin: 09/05/18 21:56 Dose: Not Given Insulin Human Regular (Novolin R) 0 unit SC [facility]; Protocol Last Admin: 09/06/18 09:00 Dose: 1 units Isosorbide Mononitrate (Imdur) 60 mg PO DAILY [facility] Last Admin: 09/06/18 10:59 Dose: Not Given Levetiracetam (Keppra) 500 mg PO BID [facility] Last Admin: 09/06/18 10:59 Dose: Not Given Montelukast Sodium (Singulair) 10 mg PO DAILY [facility] Last Admin: 09/06/18 11:01 Dose: Not Given Ondansetron HCl (Zofran Inj) 4 mg IVP Q6H PRN PRN Reason: Nausea/Vomiting Pantoprazole Sodium (Protonix Ec Tab) 20 mg PO DAILY [facility] Last Admin: 09/06/18 11:00 Dose: Not Given Ranolazine (Ranexa) 500 mg PO BID [facility] Last Admin: 09/06/18 11:00 Dose: Not Given Sertraline HCl (Zoloft) 50 mg PO DAILY [facility] Last Admin: 09/06/18 11:01 Dose: Not Given Sevelamer Carbonate (Renvela) 1,600 mg PO TIDCC [facility] Last Admin: 09/06/18 11:00 Dose: Not Given Valproate Sodium (Depakene Cap) 250 mg PO QID [facility] Last Admin: 09/06/18 10:59 Dose: Not Given Vitamin B Complex/Vit C/Folic Acid (Nephro-Courtney) 1 tab PO 0800 [facility] Last Admin: 09/06/18 11:00 Dose: Not Given - Labs Labs: 09/04/18 14:16 09/04/18 14:16 - Constitutional Appears: Non-toxic, In Acute Distress - Head Exam Head Exam: ATRAUMATIC - ENT Exam ENT Exam: Mucous Membranes Dry - Neck Exam Neck Exam: Normal Inspection - Respiratory Exam Respiratory Exam: Decreased Breath Sounds, Rales - Cardiovascular Exam Cardiovascular Exam: REGULAR RHYTHM - GI/Abdominal Exam GI & Abdominal Exam: Tenderness - Extremities Exam Additional comments: bilaterl amputation - Back Exam Back Exam: NORMAL INSPECTION - Psychiatric Exam Psychiatric exam: Normal Affect - Skin Skin Exam: Pallor Assessment and Plan - Assessment and Plan (Free Text) Assessment: bronchitis weekness abd pin dmid esrf Plan: as per orders
[2018-09-06] MEDS: (Lantus) Insulin Glargine, Recombinant SC SCH (22:37)
[2018-09-07] MEDS: Albuterol-Ipratrop 3 mg / 0.5 (3 ml) UD IH SCH ×5 (00:34→19:31)
[2018-09-07] MEDS: Multivitamin Vitamin B Complex (Nephro-Vite) Tab PO SCH (09:00)
[2018-09-07] MEDS: (Novolin R) Insulin Human Regular 100 units/ml vial SC SCH ×4 (09:02→22:05)
[2018-09-07] MEDS: Pantoprazole 20 mg EC Tab PO SCH (10:26)
[2018-09-07] MEDS: Ranolazine 500 mg Extended Release Tablets PO SCH ×2 (10:31→18:26)
[2018-09-07] MEDS: Insulin Detemir 100 units/ml Vial (Levemir) SC SCH (10:42)
--- NOTE | 2018-09-07 11:00 | CP.PCM.PN ---
Subjective - Date & Time of Evaluation Date of Evaluation: 09/07/18 Time of Evaluation: 10:58 - Subjective Subjective: pt still coughing weeke but no vomiting still need help with eating Objective - Vital Signs/Intake and Output Vital Signs (last 24 hours): Temp Pulse Resp BP Pulse Ox 98.8 F 77 18 100/60 100 09/07/18 07:00 09/07/18 10:02 09/07/18 07:00 09/07/18 10:46 09/07/18 07:00 - Medications Medications: Current Medications Acetaminophen (Tylenol 650mg/20.3ml Solution Ud) 650 mg PO Q6 PRN PRN Reason: Pain, moderate (4-7) Albuterol/Ipratropium (Duoneb 3 Mg/0.5 Mg (3 Ml) Ud) 3 ml IH RQ4 [facility] Last Admin: 09/07/18 08:00 Dose: 3 ml Amiodarone HCl (Cordarone) 200 mg PO DAILY [facility] Last Admin: 09/07/18 10:36 Dose: Not Given Apixaban (Eliquis) 2.5 mg PO BID [facility] Last Admin: 09/07/18 10:29 Dose: 2.5 mg Aspirin (Aspirin Chewable) 81 mg PO DAILY [facility] Last Admin: 09/07/18 10:28 Dose: 81 mg Calcitriol (Rocaltrol) 0.25 mcg PO TTS [facility] Last Admin: 09/06/18 11:01 Dose: Not Given Calcium Carbonate (Oscal) 500 mg PO BID [facility] Last Admin: 09/07/18 10:26 Dose: 500 mg Carvedilol (Coreg) 12.5 mg PO BID [facility] Last Admin: 09/07/18 10:36 Dose: Not Given Cinacalcet (Sensipar) 60 mg PO QPM [facility] Last Admin: 09/06/18 18:43 Dose: 60 mg Clopidogrel Bisulfate (Plavix) 75 mg PO DAILY [facility] Last Admin: 09/07/18 10:42 Dose: 75 mg Dextrose (Dextrose 50% Inj) 0 ml IV STAT PRN; Protocol PRN Reason: Hypoglycemia Protocol Last Admin: 09/04/18 07:05 Dose: 50 ml Dextrose (Glutose 15) 0 gm PO ONCE PRN; Protocol PRN Reason: Hypoglycemia Protocol Docusate Sodium (Colace) 100 mg PO PRN PRN PRN Reason: Constipation Last Admin: 09/07/18 10:27 Dose: 100 mg Epoetin Tom (Procrit) 10,000 unit IV TTS [facility] Last Admin: 09/06/18 10:42 Dose: 10,000 unit Ergocalciferol (Drisdol 50,000 Intl Units Cap) 1 cap PO Q7D [facility] Last Admin: 09/03/18 09:44 Dose: 1 cap Glucagon (Glucagen Diagnostic Kit) 0 mg IM STAT PRN; Protocol PRN Reason: Hypoglycemia Protocol Heparin Sodium (Porcine) (Heparin) 3,700 units IVP TTS [facility] Stop: 09/12/18 23:59 Last Admin: 09/06/18 12:00 Dose: 3,700 units Insulin Detemir (Levemir) 22 unit SC DAILY [facility] Last Admin: 09/07/18 10:42 Dose: 22 units Insulin Glargine (Lantus) 8 unit SC HS [facility] Last Admin: 09/06/18 22:37 Dose: 8 units Insulin Human Regular (Novolin R) 0 unit SC [facility]; Protocol Last Admin: 09/07/18 09:02 Dose: Not Given Isosorbide Mononitrate (Imdur) 60 mg PO DAILY [facility] Last Admin: 09/07/18 10:37 Dose: Not Given Levetiracetam (Keppra) 500 mg PO BID [facility] Last Admin: 09/07/18 10:26 Dose: 500 mg Montelukast Sodium (Singulair) 10 mg PO DAILY [facility] Last Admin: 09/07/18 10:26 Dose: 10 mg Ondansetron HCl (Zofran Inj) 4 mg IVP Q6H PRN PRN Reason: Nausea/Vomiting Pantoprazole Sodium (Protonix Ec Tab) 20 mg PO DAILY [facility] Last Admin: 09/07/18 10:26 Dose: 20 mg Ranolazine (Ranexa) 500 mg PO BID [facility] Last Admin: 09/07/18 10:31 Dose: 500 mg Sertraline HCl (Zoloft) 50 mg PO DAILY [facility] Last Admin: 09/07/18 10:27 Dose: 50 mg Sevelamer Carbonate (Renvela) 1,600 mg PO TIDCC [facility] Last Admin: 09/07/18 09:00 Dose: 1,600 mg Valproate Sodium (Depakene Cap) 250 mg PO QID [facility] Last Admin: 09/07/18 10:31 Dose: 250 mg Vitamin B Complex/Vit C/Folic Acid (Nephro-Courtney) 1 tab PO 0800 [facility] Last Admin: 09/07/18 09:00 Dose: 1 tab - Labs Labs: 09/04/18 14:16 09/04/18 14:16 - Constitutional Appears: Non-toxic - Head Exam Head Exam: ATRAUMATIC - Eye Exam Eye Exam: Conjunctival injection Additional comments: blind - ENT Exam ENT Exam: Mucous Membranes Dry - Neck Exam Neck Exam: Full ROM - Respiratory Exam Respiratory Exam: Decreased Breath Sounds - Cardiovascular Exam Cardiovascular Exam: REGULAR RHYTHM Additional comments: hypotensive - GI/Abdominal Exam GI & Abdominal Exam: Soft - Back Exam Back Exam: CVA tenderness (L) - Neurological Exam Neurological Exam: Awake, Oriented x3 - Psychiatric Exam Psychiatric exam: Normal Affect - Skin Skin Exam: Pallor Assessment and Plan - Assessment and Plan (Free Text) Assessment: hypotensive chf bronchitis generalised weekness esrf dm Plan: d/c norvasc
--- NOTE | 2018-09-07 17:13 | CP.PCM.PN ---
Subjective - Date & Time of Evaluation Date of Evaluation: 09/07/18 Time of Evaluation: 17:12 - Subjective Subjective: Nephrology Consultation Note: Assessment: stable Pulmonary congestion, fluid overload, HTN urgency chronic chest pain, A flutter Diabetic chronic Kidney Disease (E11.22) Hypertensive Chronic Kidney Disease (I12.0) End stage renal disease (N18.6) dependence on hemodialysis (Z99.2) (TTS) via AVF Anemia (D64.9), Hyperphosphatemia (E83.39), Secondary Hyperparathyroidism (E21.1), HTN (I12.0) CAD s/p CABG, diastolic CHF, parox A flutter/fib, intra-cardiac thrombus, hx of Heparin induced thrombocytopenia, hx of seizure, blindness Plan: hd TTS schedule Continue with Nephrovite 1 tab/day. not on HANNAH with HD . PRBC As needed for anemia Continue with phos binders home dose; renvela. continue with calcitriol and sensipar 60 mg/d BP control with meds as ordered. on ARB as losartan (will hold) and d/c norvasc as BP low side Glycemic control, Dialysis consistent diet Physical Examination: General Appearance: in no acute respiratory distress, co-operative. Head; Atraumatic, normocephalic ENT: no ulcers no thrush. Tongue is midline. Oropharynx: no rash or ulcers. EYES: Pt is blind both eyes Neck; supple no lymphadenopathy, no thyromegaly or bruit Lungs: normal respiratory rate/effort. 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 s1s2 normal. No rub or gallop. Extremities: no edema. No varicose veins. has b/l BKA. Neurological: Patient is sleepy Skin: Warm and dry. Normal turgor. No rash. Abdomen: Abdomen is soft. Bowel sounds +. There is no abdominal tenderness, no guarding/rigidity or organomegaly Psych: limited insight and has normal affect/mood MSK: no joint tenderness Access: permacath Objective - Vital Signs/Intake and Output Vital Signs (last 24 hours): Temp Pulse Resp BP Pulse Ox 97.8 F 71 18 116/74 100 09/07/18 15:00 09/07/18 15:40 09/07/18 15:00 09/07/18 15:00 09/07/18 15:00 Intake and Output: 09/07/18 09/07/18 06:59 18:59 Intake Total 480 Balance 480 - Medications Medications: Current Medications Acetaminophen (Tylenol 650mg/20.3ml Solution Ud) 650 mg PO Q6 PRN PRN Reason: Pain, moderate (4-7) Albuterol/Ipratropium (Duoneb 3 Mg/0.5 Mg (3 Ml) Ud) 3 ml IH RQ4 [facility] Last Admin: 09/07/18 16:35 Dose: 3 ml Amiodarone HCl (Cordarone) 200 mg PO DAILY [facility] Last Admin: 09/07/18 10:36 Dose: Not Given Apixaban (Eliquis) 2.5 mg PO BID [facility] Last Admin: 09/07/18 10:29 Dose: 2.5 mg Aspirin (Aspirin Chewable) 81 mg PO DAILY [facility] Last Admin: 09/07/18 10:28 Dose: 81 mg Calcitriol (Rocaltrol) 0.25 mcg PO TTS [facility] Last Admin: 09/06/18 11:01 Dose: Not Given Calcium Carbonate (Oscal) 500 mg PO BID [facility] Last Admin: 09/07/18 10:26 Dose: 500 mg Carvedilol (Coreg) 12.5 mg PO BID [facility] Last Admin: 09/07/18 10:36 Dose: Not Given Cinacalcet (Sensipar) 60 mg PO QPM [facility] Last Admin: 09/06/18 18:43 Dose: 60 mg Clopidogrel Bisulfate (Plavix) 75 mg PO DAILY [facility] Last Admin: 09/07/18 10:42 Dose: 75 mg Dextrose (Dextrose 50% Inj) 0 ml IV STAT PRN; Protocol PRN Reason: Hypoglycemia Protocol Last Admin: 09/04/18 07:05 Dose: 50 ml Dextrose (Glutose 15) 0 gm PO ONCE PRN; Protocol PRN Reason: Hypoglycemia Protocol Docusate Sodium (Colace) 100 mg PO PRN PRN PRN Reason: Constipation Last Admin: 09/07/18 10:27 Dose: 100 mg Epoetin Tom (Procrit) 10,000 unit IV TTS [facility] Last Admin: 09/06/18 10:42 Dose: 10,000 unit Ergocalciferol (Drisdol 50,000 Intl Units Cap) 1 cap PO Q7D [facility] Last Admin: 09/03/18 09:44 Dose: 1 cap Glucagon (Glucagen Diagnostic Kit) 0 mg IM STAT PRN; Protocol PRN Reason: Hypoglycemia Protocol Heparin Sodium (Porcine) (Heparin) 3,700 units IVP TTS [facility] Stop: 09/12/18 23:59 Last Admin: 09/06/18 12:00 Dose: 3,700 units Insulin Detemir (Levemir) 22 unit SC DAILY [facility] Last Admin: 09/07/18 10:42 Dose: 22 units Insulin Glargine (Lantus) 8 unit SC HS [facility] Last Admin: 09/06/18 22:37 Dose: 8 units Insulin Human Regular (Novolin R) 0 unit SC ACHS [facility]; Protocol Last Admin: 09/07/18 17:11 Dose: Not Given Isosorbide Mononitrate (Imdur) 60 mg PO DAILY [facility] Last Admin: 09/07/18 10:37 Dose: Not Given Levetiracetam (Keppra) 500 mg PO BID [facility] Last Admin: 09/07/18 10:26 Dose: 500 mg Montelukast Sodium (Singulair) 10 mg PO DAILY [facility] Last Admin: 09/07/18 10:26 Dose: 10 mg Ondansetron HCl (Zofran Inj) 4 mg IVP Q6H PRN PRN Reason: Nausea/Vomiting Pantoprazole Sodium (Protonix Ec Tab) 20 mg PO DAILY [facility] Last Admin: 09/07/18 10:26 Dose: 20 mg Ranolazine (Ranexa) 500 mg PO BID [facility] Last Admin: 09/07/18 10:31 Dose: 500 mg Sevelamer Carbonate (Renvela) 1,600 mg PO TIDCC [facility] Last Admin: 09/07/18 13:54 Dose: 1,600 mg Tramadol HCl (Ultram) 50 mg PO TID PRN PRN Reason: pain Valproate Sodium (Depakene Cap) 250 mg PO QID [facility] Last Admin: 09/07/18 13:55 Dose: 250 mg Vitamin B Complex/Vit C/Folic Acid (Nephro-Courtney) 1 tab PO 0800 [facility] Last Admin: 09/07/18 09:00 Dose: 1 tab - Labs Labs: 09/04/18 14:16 09/04/18 14:16
--- NOTE | 2018-09-07 19:47 | PN ---
DATE: 09/07/2018 SUBJECTIVE: The patient is seen. The patient is off narcotics, but not asking for it. He is, however, complaining of pain and said he used to take tramadol. Discussed with the patient about the drug-drug interaction with tramadol and Zoloft. We will stop the Zoloft as the patient has chronic pain syndrome and history of dependence on narcotics, but narcotics was discontinued. The patient had Rapid Response called because of his excessive intake of narcotics. Now, the patient does not want to take his Dilaudid, but willing to take tramadol. PHYSICAL EXAMINATION: VITAL SIGNS: Temperature 98.8, pulse 77, blood pressure 100/60, respirations 18, and oxygen saturations 100%. REVIEW OF SYSTEMS: GENERAL: He is alert, verbal, seen with staff talking, trying to eat with assistance from staff, seen in his room SKIN: No diaphoresis. HEENT: The patient is legally blind. No headache. NECK: Supple. RESPIRATORY: No dyspnea. CARDIOVASCULAR: No chest pain. GASTROINTESTINAL: The patient is eating fairly well. He is consistent with meals. EXTREMITIES: The patient is bilateral amputee, complaining off and on chronic pain. MUSCULOSKELETAL: Feels weak. NEUROLOGIC: Alert and oriented x3. GENITOURINARY: No dysuria. MENTAL STATUS EXAMINATION: A well-developed male, who looks stated age, alert, verbal, and oriented x3. Mood is dysphoric. Affect is reactive. Speech spontaneous. Thought process, coherent. Thought content: The patient is asking for tramadol p.r.n. No psychosis. No suicidal or homicidal ideation. Attention and memory seem to be fair. Insight and judgment fair. Impulse control is fair. IMPRESSION: History of depression, anxiety disorder, opioid dependence, and history of delirium. PLAN AND RECOMMENDATIONS: The patient is seen. Meds reviewed. We will discontinue the Zoloft. As the patient asked for tramadol p.r.n., we will start tramadol 50 mg every 8 hours p.r.n. Zoloft needs to be stopped to avoid side effect of serotonin syndrome with combination of tramadol and Zoloft being SSRI. We will give tramadol 50 mg every 8 hours p.r.n. Continue treatment plan as outlined. Continue dialysis as ordered. Dale Joseph MD [facility] # [id number] MARIANN
[2018-09-07] MEDS: (Lantus) Insulin Glargine, Recombinant SC SCH (22:04)
[2018-09-08] MEDS: Albuterol-Ipratrop 3 mg / 0.5 (3 ml) UD IH SCH ×2 (00:02→03:14)
[2018-09-08] MEDS: (Novolin R) Insulin Human Regular 100 units/ml vial SC SCH ×4 (07:30→21:28)
[2018-09-08] MEDS: Multivitamin Vitamin B Complex (Nephro-Vite) Tab PO SCH (08:40)
[2018-09-08] MEDS: Pantoprazole 20 mg EC Tab PO SCH (09:53)
--- NOTE | 2018-09-08 10:38 | CP.PCM.PN ---
Subjective - Date & Time of Evaluation Date of Evaluation: 09/08/18 Time of Evaluation: 10:35 - Subjective Subjective: still coughing hgb7.6 glucose flactuate 400 to 88 Objective - Vital Signs/Intake and Output Vital Signs (last 24 hours): Temp Pulse Resp BP Pulse Ox 97.5 F L 56 L 20 120/47 L 99 09/08/18 07:00 09/08/18 07:30 09/08/18 07:00 09/08/18 09:54 09/08/18 07:00 - Medications Medications: Current Medications Acetaminophen (Tylenol 650mg/20.3ml Solution Ud) 650 mg PO Q6 PRN PRN Reason: Pain, moderate (4-7) Albuterol/Ipratropium (Duoneb 3 Mg/0.5 Mg (3 Ml) Ud) 3 ml INH RQ4 [facility] Amiodarone HCl (Cordarone) 200 mg PO DAILY [facility] Last Admin: 09/08/18 09:55 Dose: 200 mg Apixaban (Eliquis) 2.5 mg PO BID [facility] Last Admin: 09/08/18 09:53 Dose: 2.5 mg Aspirin (Aspirin Chewable) 81 mg PO DAILY [facility] Last Admin: 09/08/18 09:53 Dose: 81 mg Calcitriol (Rocaltrol) 0.25 mcg PO TTS [facility] Last Admin: 09/06/18 11:01 Dose: Not Given Calcium Carbonate (Oscal) 500 mg PO BID [facility] Last Admin: 09/08/18 09:53 Dose: 500 mg Carvedilol (Coreg) 12.5 mg PO BID [facility] Last Admin: 09/08/18 09:54 Dose: 12.5 mg Cinacalcet (Sensipar) 60 mg PO QPM [facility] Last Admin: 09/07/18 18:27 Dose: 60 mg Clopidogrel Bisulfate (Plavix) 75 mg PO DAILY [facility] Last Admin: 09/08/18 09:53 Dose: 75 mg Dextrose (Dextrose 50% Inj) 0 ml IV STAT PRN; Protocol PRN Reason: Hypoglycemia Protocol Last Admin: 09/04/18 07:05 Dose: 50 ml Dextrose (Glutose 15) 0 gm PO ONCE PRN; Protocol PRN Reason: Hypoglycemia Protocol Docusate Sodium (Colace) 100 mg PO PRN PRN PRN Reason: Constipation Last Admin: 09/07/18 10:27 Dose: 100 mg Epoetin Tom (Procrit) 10,000 unit IV TTS [facility] Last Admin: 09/06/18 10:42 Dose: 10,000 unit Ergocalciferol (Drisdol 50,000 Intl Units Cap) 1 cap PO Q7D [facility] Last Admin: 09/03/18 09:44 Dose: 1 cap Glucagon (Glucagen Diagnostic Kit) 0 mg IM STAT PRN; Protocol PRN Reason: Hypoglycemia Protocol Heparin Sodium (Porcine) (Heparin) 3,700 units IVP TTS [facility] Stop: 09/12/18 23:59 Last Admin: 09/06/18 12:00 Dose: 3,700 units Insulin Detemir (Levemir) 22 unit SC DAILY [facility] Last Admin: 09/07/18 10:42 Dose: 22 units Insulin Glargine (Lantus) 8 unit SC [facility] Last Admin: 09/07/18 22:04 Dose: Not Given Insulin Human Regular (Novolin R) 0 unit SC [facility]; Protocol Last Admin: 09/08/18 07:30 Dose: Not Given Isosorbide Mononitrate (Imdur) 60 mg PO DAILY [facility] Last Admin: 09/08/18 09:55 Dose: 60 mg Levetiracetam (Keppra) 500 mg PO BID [facility] Last Admin: 09/08/18 09:53 Dose: 500 mg Montelukast Sodium (Singulair) 10 mg PO DAILY [facility] Last Admin: 09/08/18 09:53 Dose: 10 mg Ondansetron HCl (Zofran Inj) 4 mg IVP Q6H PRN PRN Reason: Nausea/Vomiting Pantoprazole Sodium (Protonix Ec Tab) 20 mg PO DAILY [facility] Last Admin: 09/08/18 09:53 Dose: 20 mg Ranolazine (Ranexa) 500 mg PO BID [facility] Last Admin: 09/07/18 18:26 Dose: 500 mg Sevelamer Carbonate (Renvela) 1,600 mg PO TIDCC [facility] Last Admin: 09/08/18 08:40 Dose: 1,600 mg Tramadol HCl (Ultram) 50 mg PO TID PRN PRN Reason: pain Last Admin: 09/08/18 00:59 Dose: 50 mg Valproate Sodium (Depakene Cap) 250 mg PO QID [facility] Last Admin: 09/07/18 23:07 Dose: 250 mg Vitamin B Complex/Vit C/Folic Acid (Nephro-Courtney) 1 tab PO 0800 [facility] Last Admin: 09/08/18 08:40 Dose: 1 tab - Labs Labs: 09/04/18 14:16 09/04/18 14:16 - Constitutional Appears: Non-toxic - Head Exam Head Exam: ATRAUMATIC - Eye Exam Eye Exam: Conjunctival injection - ENT Exam ENT Exam: Mucous Membranes Moist - Neck Exam Neck Exam: Full ROM - Respiratory Exam Respiratory Exam: Decreased Breath Sounds - Cardiovascular Exam Cardiovascular Exam: REGULAR RHYTHM - GI/Abdominal Exam GI & Abdominal Exam: Soft - Rectal Exam Rectal Exam: NORMAL INSPECTION - Exam Exam: NORMAL INSPECTION - Back Exam Back Exam: NORMAL INSPECTION - Neurological Exam Neurological Exam: Awake, Oriented x3 - Psychiatric Exam Psychiatric exam: Normal Affect - Skin Skin Exam: Pallor Assessment and Plan - Assessment and Plan (Free Text) Assessment: severe aneamia dmid flactuting esr bronchitis Plan: as per orders
[2018-09-08] MEDS: Ranolazine 500 mg Extended Release Tablets PO SCH ×2 (10:50→18:38)
[2018-09-08] MEDS: Insulin Detemir 100 units/ml Vial (Levemir) SC SCH (10:51)
[2018-09-08 11:34] LABS: BASO # 0.1 K/uL (0.0-0.2); BASO % 1.2 % (0.0-2.0); EOS # 0.2 K/uL (0.0-0.7); EOS % 2.8 % (0.0-4.0); HEMOGLOBIN 9.7 g/dL (12.0-18.0); LYMPH # 2.3 K/uL (1.0-4.3); LYMPH % 28.8 % (20.0-40.0); MEAN CORPUSCULAR HEMOGLOBIN 29.9 pg (27.0-31.0); MEAN CORPUSCULAR HGB CONC 32.5 g/dL (33.0-37.0); MEAN PLATELET VOLUME 10.2 fL (7.2-11.7); MONO # 0.6 K/uL (0.0-0.8); MONO % 7.8 % (0.0-10.0); NEUT # 4.7 K/uL (1.8-7.0); NEUT % 59.4 % (50.0-75.0); RBC 3.25 Mil/uL (4.40-5.90); RED CELL DISTRIBUTION WIDTH 18.5 % (11.5-14.5); WHITE BLOOD COUNT 7.9 K/uL (4.8-10.8)
--- NOTE | 2018-09-08 13:15 | CP.PCM.PN ---
Subjective - Date & Time of Evaluation Date of Evaluation: 09/08/18 Time of Evaluation: 13:12 - Subjective Subjective: No distress No CP alert and oriented x3 no fevers, no N/V Objective - Vital Signs/Intake and Output Vital Signs (last 24 hours): Temp Pulse Resp BP Pulse Ox 97.5 F L 56 L 20 120/47 L 99 09/08/18 07:00 09/08/18 07:30 09/08/18 07:00 09/08/18 09:54 09/08/18 07:00 - Medications Medications: Current Medications Acetaminophen (Tylenol 650mg/20.3ml Solution Ud) 650 mg PO Q6 PRN PRN Reason: Pain, moderate (4-7) Albuterol/Ipratropium (Duoneb 3 Mg/0.5 Mg (3 Ml) Ud) 3 ml INH RQ4 REPLACED BY [facility] Amiodarone HCl (Cordarone) 200 mg PO DAILY REPLACED BY [facility] Last Admin: 09/08/18 09:55 Dose: 200 mg Apixaban (Eliquis) 2.5 mg PO BID REPLACED BY [facility] Last Admin: 09/08/18 09:53 Dose: 2.5 mg Aspirin (Aspirin Chewable) 81 mg PO DAILY REPLACED BY [facility] Last Admin: 09/08/18 09:53 Dose: 81 mg Calcitriol (Rocaltrol) 0.25 mcg PO TTS REPLACED BY [facility] Last Admin: 09/06/18 11:01 Dose: Not Given Calcium Carbonate (Oscal) 500 mg PO BID REPLACED BY [facility] Last Admin: 09/08/18 09:53 Dose: 500 mg Carvedilol (Coreg) 12.5 mg PO BID REPLACED BY [facility] Last Admin: 09/08/18 09:54 Dose: 12.5 mg Cinacalcet (Sensipar) 60 mg PO QPM REPLACED BY [facility] Last Admin: 09/07/18 18:27 Dose: 60 mg Clopidogrel Bisulfate (Plavix) 75 mg PO DAILY REPLACED BY [facility] Last Admin: 09/08/18 09:53 Dose: 75 mg Dextrose (Dextrose 50% Inj) 0 ml IV STAT PRN; Protocol PRN Reason: Hypoglycemia Protocol Last Admin: 09/04/18 07:05 Dose: 50 ml Dextrose (Glutose 15) 0 gm PO ONCE PRN; Protocol PRN Reason: Hypoglycemia Protocol Docusate Sodium (Colace) 100 mg PO PRN PRN PRN Reason: Constipation Last Admin: 09/07/18 10:27 Dose: 100 mg Epoetin Tom (Procrit) 10,000 unit IV TTS REPLACED BY [facility] Last Admin: 09/06/18 10:42 Dose: 10,000 unit Ergocalciferol (Drisdol 50,000 Intl Units Cap) 1 cap PO Q7D REPLACED BY [facility] Last Admin: 09/03/18 09:44 Dose: 1 cap Glucagon (Glucagen Diagnostic Kit) 0 mg IM STAT PRN; Protocol PRN Reason: Hypoglycemia Protocol Heparin Sodium (Porcine) (Heparin) 3,700 units IVP TTS REPLACED BY [facility] Stop: 09/12/18 23:59 Last Admin: 09/06/18 12:00 Dose: 3,700 units Insulin Detemir (Levemir) 22 unit SC DAILY REPLACED BY [facility] Last Admin: 09/08/18 10:51 Dose: 22 units Insulin Glargine (Lantus) 8 unit SC HS REPLACED BY [facility] Last Admin: 09/07/18 22:04 Dose: Not Given Insulin Human Regular (Novolin R) 0 unit SC [facility] REPLACED BY [facility]; Protocol Last Admin: 09/08/18 07:30 Dose: Not Given Isosorbide Mononitrate (Imdur) 60 mg PO DAILY REPLACED BY [facility] Last Admin: 09/08/18 09:55 Dose: 60 mg Levetiracetam (Keppra) 500 mg PO BID REPLACED BY [facility] Last Admin: 09/08/18 09:53 Dose: 500 mg Montelukast Sodium (Singulair) 10 mg PO DAILY REPLACED BY [facility] Last Admin: 09/08/18 09:53 Dose: 10 mg Ondansetron HCl (Zofran Inj) 4 mg IVP Q6H PRN PRN Reason: Nausea/Vomiting Pantoprazole Sodium (Protonix Ec Tab) 20 mg PO DAILY REPLACED BY [facility] Last Admin: 09/08/18 09:53 Dose: 20 mg Ranolazine (Ranexa) 500 mg PO BID REPLACED BY [facility] Last Admin: 09/08/18 10:50 Dose: 500 mg Sevelamer Carbonate (Renvela) 1,600 mg PO TIDCC REPLACED BY [facility] Last Admin: 09/08/18 13:00 Dose: 1,600 mg Tramadol HCl (Ultram) 50 mg PO TID PRN PRN Reason: pain Last Admin: 09/08/18 00:59 Dose: 50 mg Valproate Sodium (Depakene Cap) 250 mg PO QID REPLACED BY [facility] Last Admin: 09/08/18 13:07 Dose: 250 mg Vitamin B Complex/Vit C/Folic Acid (Nephro-Courtney) 1 tab PO 0800 REPLACED BY [facility] Last Admin: 09/08/18 08:40 Dose: 1 tab - Labs Labs: 09/08/18 11:25 09/04/18 14:16 - Constitutional Appears: No Acute Distress, Chronically Ill - Head Exam Head Exam: ATRAUMATIC, NORMAL INSPECTION, NORMOCEPHALIC - Eye Exam Eye Exam: absent: Normal appearance - ENT Exam ENT Exam: Mucous Membranes Moist, Normal Oropharynx - Neck Exam Neck Exam: Normal Inspection. absent: Tenderness - Respiratory Exam Respiratory Exam: Clear to Ausculation Bilateral. absent: Rhonchi, Wheezes - Cardiovascular Exam Cardiovascular Exam: REGULAR RHYTHM, +S1, +S2, Murmur - GI/Abdominal Exam GI & Abdominal Exam: Soft, Normal Bowel Sounds. absent: Tenderness, Organomegaly, Pulsatile Mass - Extremities Exam Extremities Exam: absent: Normal Inspection (B/L BKA) - Neurological Exam Neurological Exam: Alert, Awake, Oriented x3 - Psychiatric Exam Psychiatric exam: Normal Affect, Normal Mood - Skin Skin Exam: Normal Color, Warm Assessment and Plan - Assessment and Plan (Free Text) Assessment: 38 year old woman transgender chest pain, HTN, hyperkalemia, hypergylemia and PNA/URI sxs on admission > EKG: NSR, LVH with strain pattern ESRD on HD to help correct and maintain lytes and fluid balance PVD severe s/p bilateral BKA's, now with skin breadown in the amputation sites m onitor DM is labile and brittle on insulin HTN is chornic and stable on coreg, Norvasc, diltiazem, losartan on hold Atrial flutter/fibrillaiton > suggest eliquis 5mg po BID for CVA prophylaxsis and for prior intracardiac thrombus, continue amiodarone for rhythm control Angina s/p CABG now with failed grafts and multiple PCI now non revascularizable, ranexa and imdur for chronic stable angina, on plavix, ASA and eliquis I would d/c plavix due to risk of bleeding and continue DOAC at 5mg BID SOB/Cough/URI and infiltrate on CXR: on ABX: clinically improved
--- NOTE | 2018-09-08 14:11 | CARD ---
APPROVED REPORT Date of service: 09/05/2018 EKG Measurement Heart [id number] <Conclusion> Sinus rhythm with 1st degree AV block Right atrial enlargement Inferior infarct, age undetermined Marked ST abnormality, possible lateral subendocardial injury Abnormal ECG
--- NOTE | 2018-09-08 14:53 | CP.PCM.PN ---
Subjective - Date & Time of Evaluation Date of Evaluation: 09/08/18 Time of Evaluation: 14:52 - Subjective Subjective: Nephrology Consultation Note: Assessment: stable Pulmonary congestion, fluid overload, HTN urgency chronic chest pain, A flutter Diabetic chronic Kidney Disease (E11.22) Hypertensive Chronic Kidney Disease (I12.0) End stage renal disease (N18.6) dependence on hemodialysis (Z99.2) (TTS) via AVF Anemia (D64.9), Hyperphosphatemia (E83.39), Secondary Hyperparathyroidism (E21.1), HTN (I12.0) CAD s/p CABG, diastolic CHF, parox A flutter/fib, intra-cardiac thrombus, hx of Heparin induced thrombocytopenia, hx of seizure, blindness Plan: plan for dialysis as per TTS schedule Continue with Nephrovite 1 tab/day. not on HANNAH with HD . PRBC As needed for anemia, last Hb 9.7 Continue with phos binders home dose; renvela. continue with calcitriol and sensipar 60 mg/d BP control with meds as ordered. on ARB as losartan (will hold) and d/c norvasc as BP low side Glycemic control, Dialysis consistent diet Further work up/management as per primary team Dose meds/antibiotics for ESRD status. Avoid fleets enema/magnesium based laxatives. cardiology following pt was seen for pain management, off opiates and started on tramadol. Thanks for allowing me to participate in care of your patient. Will follow patient with you. Please call if any Qs. had d/w team Dr Eric Temple Office: [phone] CC: SOB reason for consult: ESRD HPI: Pt is a 38 y/o transgender with hx of ESRD on hemodialysis (TTS) via permacath, chronic anemia, hyperphosphatemia, secondary hyperparathyroidism, Diabetes Mellitus, hypertension, CAD s/p CABG, diastolic CHF, pA flutter/fib, intra-cardiac thrombus, Heparin induced thrombocytopenia in past presented with complaints of SOB and chronic chest pain x 1 day. pt with recurrent and fr equent hospitalizations for same complaints. ROS: All other negative except as in HPI. has chronic chest pain,SOB better. Physical Examination: General Appearance: in no acute respiratory distress, co-operative. Head; Atraumatic, normocephalic ENT: no ulcers no thrush. Tongue is midline. Oropharynx: no rash or ulcers. EYES: Pt is blind both eyes Neck; supple no lymphadenopathy, no thyromegaly or bruit Lungs: normal respiratory rate/effort. Breath sounds bilateral equal and clear now Heart: Normal rate. s1s2 normal. No rub or gallop. Extremities: no edema. No varicose veins. has b/l BKA. Neurological: Patient is awake follow commands no focal deficit Skin: Warm and dry. Normal turgor. No rash. Palpitation: Normal elasticity for age Abdomen: Abdomen is soft. Bowel sounds +. There is no abdominal tenderness, no guarding/rigidity or organomegaly Psych: limited insight and has normal affect/mood MSK: no joint tenderness or swelling. Digits and nails normal, no deformity : kidney or bladder not palpable Access: permacath Labs/imaging reviewed. Past medical history, past surgical history, family history, social history, allergy reviewed and noted as below Family Hx: no hx of CKD. Non contributory Objective - Vital Signs/Intake and Output Vital Signs (last 24 hours): Temp Pulse Resp BP Pulse Ox 97.5 F L 61 20 120/47 L 99 09/08/18 07:00 09/08/18 12:00 09/08/18 07:00 09/08/18 09:54 09/08/18 07:00 Intake and Output: 09/08/18 09/08/18 06:59 18:59 Intake Total 300 Balance 300 - Medications Medications: Current Medications Acetaminophen (Tylenol 650mg/20.3ml Solution Ud) 650 mg PO Q6 PRN PRN Reason: Pain, moderate (4-7) Albuterol/Ipratropium (Duoneb 3 Mg/0.5 Mg (3 Ml) Ud) 3 ml INH RQ4 [facility] Amiodarone HCl (Cordarone) 200 mg PO DAILY [facility] Last Admin: 09/08/18 09:55 Dose: 200 mg Apixaban (Eliquis) 2.5 mg PO BID [facility] Last Admin: 09/08/18 09:53 Dose: 2.5 mg Aspirin (Aspirin Chewable) 81 mg PO DAILY [facility] Last Admin: 09/08/18 09:53 Dose: 81 mg Calcitriol (Rocaltrol) 0.25 mcg PO TTS [facility] Last Admin: 09/06/18 11:01 Dose: Not Given Calcium Carbonate (Oscal) 500 mg PO BID [facility] Last Admin: 09/08/18 09:53 Dose: 500 mg Carvedilol (Coreg) 12.5 mg PO BID [facility] Last Admin: 09/08/18 09:54 Dose: 12.5 mg Cinacalcet (Sensipar) 60 mg PO QPM [facility] Last Admin: 09/07/18 18:27 Dose: 60 mg Clopidogrel Bisulfate (Plavix) 75 mg PO DAILY [facility] Last Admin: 09/08/18 09:53 Dose: 75 mg Dextrose (Dextrose 50% Inj) 0 ml IV STAT PRN; Protocol PRN Reason: Hypoglycemia Protocol Last Admin: 09/04/18 07:05 Dose: 50 ml Dextrose (Glutose 15) 0 gm PO ONCE PRN; Protocol PRN Reason: Hypoglycemia Protocol Docusate Sodium (Colace) 100 mg PO PRN PRN PRN Reason: Constipation Last Admin: 09/07/18 10:27 Dose: 100 mg Epoetin Tom (Procrit) 10,000 unit IV TTS [facility] Last Admin: 09/06/18 10:42 Dose: 10,000 unit Ergocalciferol (Drisdol 50,000 Intl Units Cap) 1 cap PO Q7D [facility] Last Admin: 09/03/18 09:44 Dose: 1 cap Glucagon (Glucagen Diagnostic Kit) 0 mg IM STAT PRN; Protocol PRN Reason: Hypoglycemia Protocol Heparin Sodium (Porcine) (Heparin) 3,700 units IVP TTS [facility] Stop: 09/12/18 23:59 Last Admin: 09/06/18 12:00 Dose: 3,700 units Insulin Detemir (Levemir) 22 unit SC DAILY [facility] Last Admin: 09/08/18 10:51 Dose: 22 units Insulin Glargine (Lantus) 8 unit SC HS [facility] Last Admin: 09/07/18 22:04 Dose: Not Given Insulin Human Regular (Novolin R) 0 unit SC [facility]; Protocol Last Admin: 09/08/18 11:30 Dose: Not Given Isosorbide Mononitrate (Imdur) 60 mg PO DAILY [facility] Last Admin: 09/08/18 09:55 Dose: 60 mg Levetiracetam (Keppra) 500 mg PO BID [facility] Last Admin: 09/08/18 09:53 Dose: 500 mg Montelukast Sodium (Singulair) 10 mg PO DAILY [facility] Last Admin: 09/08/18 09:53 Dose: 10 mg Ondansetron HCl (Zofran Inj) 4 mg IVP Q6H PRN PRN Reason: Nausea/Vomiting Pantoprazole Sodium (Protonix Ec Tab) 20 mg PO DAILY [facility] Last Admin: 09/08/18 09:53 Dose: 20 mg Ranolazine (Ranexa) 500 mg PO BID [facility] Last Admin: 09/08/18 10:50 Dose: 500 mg Sevelamer Carbonate (Renvela) 1,600 mg PO TIDCC [facility] Last Admin: 09/08/18 13:00 Dose: 1,600 mg Tramadol HCl (Ultram) 50 mg PO TID PRN PRN Reason: pain Last Admin: 09/08/18 00:59 Dose: 50 mg Valproate Sodium (Depakene Cap) 250 mg PO QID [facility] Last Admin: 09/08/18 13:07 Dose: 250 mg Vitamin B Complex/Vit C/Folic Acid (Nephro-Courtney) 1 tab PO 0800 [facility] Last Admin: 09/08/18 08:40 Dose: 1 tab - Labs Labs: 09/08/18 11:25 09/04/18 14:16
[2018-09-08 19:08] VITALS: O2SAT 100
--- NOTE | 2018-09-08 20:59 | PN ---
DATE: 09/08/2018 SUBJECTIVE: The patient is seen. The patient is off narcotics, still complaining of pain, but not asking for it. The patient is on tramadol 50 mg t.i.d. but asking to increase the dose as well as Xanax because he said he has trouble sleeping at night and gets anxious. The patient is currently off Zoloft as the patient has been taking tramadol to avoid drug-drug interaction causing serotonin syndrome as side effect. PHYSICAL EXAMINATION: VITAL SIGNS: Temperature is 97.5, pulse 56, blood pressure 120/47, respirations 20, oxygen sat is 99%. REVIEW OF SYSTEMS: GENERAL: The patient is seen in his room, not agitating, complaining of pain. SKIN: No pruritus. HEENT: No headache. The patient is legally blind. NECK: Supple. RESPIRATORY: No dyspnea. CARDIOVASCULAR: No chest pain. GASTROINTESTINAL: The patient is eating well. EXTREMITIES: The patient is bilateral amputee. Has chronic neuropathic pain. NEUROLOGIC: Alert and oriented x3. GENITOURINARY: No urinary problems. No dysuria. MENTAL STATUS EXAMINATION: A well-developed male who looks his stated age, oriented x3, still anxious, somatic. Affect is reactive. Speech is spontaneous. Thought process coherent. Thought content, the patient wants increase of his tramadol dose to 100 mg t.i.d. p.r.n. for better control of pain as the patient has been on narcotic for years, also asking Xanax still for anxiety at night as he is not sleeping. No psychosis. No suicidal or homicidal ideation. Attention and memory fair. Insight and judgment fair. Impulse control is fair. IMPRESSION: History of major depression, anxiety disorder as well as drug-induced delirium, history of diabetes, chronic pain syndrome, end-stage renal disease, on dialysis. PLAN AND RECOMMENDATIONS: The patient is seen. Meds reviewed. We will keep the patient off narcotics for now. We will raise the dose of tramadol to 100 mg p.o. t.i.d. and add Xanax 1 mg at bedtime. Continue treatment plan as outlined. The patient states he will be going to home tomorrow to his family. Dale Joseph, MD [facility] # [id number]
[2018-09-08] MEDS: (Lantus) Insulin Glargine, Recombinant SC SCH (21:28)
[2018-09-09] MEDS: (Novolin R) Insulin Human Regular 100 units/ml vial SC SCH ×4 (07:36→22:10)
[2018-09-09] MEDS: Multivitamin Vitamin B Complex (Nephro-Vite) Tab PO SCH (07:43)
[2018-09-09] MEDS: Albuterol-Ipratrop 3 mg / 0.5 (3 ml) UD INH SCH ×5 (07:55→20:00)
[2018-09-09] MEDS: Ranolazine 500 mg Extended Release Tablets PO SCH ×2 (09:30→18:31)
[2018-09-09] MEDS: Pantoprazole 20 mg EC Tab PO SCH (09:30)
--- NOTE | 2018-09-09 10:42 | CP.PCM.PN ---
Subjective - Date & Time of Evaluation Date of Evaluation: 09/09/18 Time of Evaluation: 10:39 - Subjective Subjective: feels beter no pain no vomiting Objective - Vital Signs/Intake and Output Vital Signs (last 24 hours): Temp Pulse Resp BP Pulse Ox 97.7 F 59 L 20 113/71 100 09/09/18 07:35 09/09/18 09:19 09/09/18 07:35 09/09/18 07:35 09/09/18 07:35 Intake and Output: 09/09/18 09/09/18 06:59 18:59 Intake Total 300 Balance 300 - Medications Medications: Current Medications Acetaminophen (Tylenol 650mg/20.3ml Solution Ud) 650 mg PO Q6 PRN PRN Reason: Pain, moderate (4-7) Albuterol/Ipratropium (Duoneb 3 Mg/0.5 Mg (3 Ml) Ud) 3 ml INH RQ4 [facility] Last Admin: 09/09/18 07:55 Dose: 3 ml Alprazolam (Xanax) 1 mg PO HS [facility] Last Admin: 09/08/18 21:28 Dose: 1 mg Amiodarone HCl (Cordarone) 200 mg PO DAILY [facility] Last Admin: 09/08/18 09:55 Dose: 200 mg Apixaban (Eliquis) 2.5 mg PO BID [facility] Last Admin: 09/08/18 18:38 Dose: 2.5 mg Aspirin (Aspirin Chewable) 81 mg PO DAILY [facility] Last Admin: 09/08/18 09:53 Dose: 81 mg Calcitriol (Rocaltrol) 0.25 mcg PO TTS [facility] Last Admin: 09/06/18 11:01 Dose: Not Given Calcium Carbonate (Oscal) 500 mg PO BID [facility] Last Admin: 09/08/18 18:38 Dose: 500 mg Carvedilol (Coreg) 12.5 mg PO BID [facility] Last Admin: 09/08/18 18:36 Dose: Not Given Cinacalcet (Sensipar) 60 mg PO QPM [facility] Last Admin: 09/08/18 18:38 Dose: 60 mg Clopidogrel Bisulfate (Plavix) 75 mg PO DAILY [facility] Last Admin: 09/08/18 09:53 Dose: 75 mg Dextrose (Dextrose 50% Inj) 0 ml IV STAT PRN; Protocol PRN Reason: Hypoglycemia Protocol Last Admin: 09/04/18 07:05 Dose: 50 ml Dextrose (Glutose 15) 0 gm PO ONCE PRN; Protocol PRN Reason: Hypoglycemia Protocol Docusate Sodium (Colace) 100 mg PO PRN PRN PRN Reason: Constipation Last Admin: 09/07/18 10:27 Dose: 100 mg Epoetin Tom (Procrit) 10,000 unit IV TTS [facility] Last Admin: 09/06/18 10:42 Dose: 10,000 unit Ergocalciferol (Drisdol 50,000 Intl Units Cap) 1 cap PO Q7D [facility] Last Admin: 09/03/18 09:44 Dose: 1 cap Glucagon (Glucagen Diagnostic Kit) 0 mg IM STAT PRN; Protocol PRN Reason: Hypoglycemia Protocol Heparin Sodium (Porcine) (Heparin) 3,700 units IVP TTS [facility] Stop: 09/12/18 23:59 Last Admin: 09/06/18 12:00 Dose: 3,700 units Insulin Detemir (Levemir) 22 unit SC DAILY [facility] Last Admin: 09/08/18 10:51 Dose: 22 units Insulin Glargine (Lantus) 8 unit SC [facility] Last Admin: 09/08/18 21:28 Dose: Not Given Insulin Human Regular (Novolin R) 0 unit SC [facility]; Protocol Last Admin: 09/09/18 07:36 Dose: Not Given Isosorbide Mononitrate (Imdur) 60 mg PO DAILY [facility] Last Admin: 09/08/18 09:55 Dose: 60 mg Levetiracetam (Keppra) 500 mg PO BID [facility] Last Admin: 09/08/18 18:38 Dose: 500 mg Montelukast Sodium (Singulair) 10 mg PO DAILY [facility] Last Admin: 09/08/18 09:53 Dose: 10 mg Ondansetron HCl (Zofran Inj) 4 mg IVP Q6H PRN PRN Reason: Nausea/Vomiting Pantoprazole Sodium (Protonix Ec Tab) 20 mg PO DAILY [facility] Last Admin: 09/08/18 09:53 Dose: 20 mg Ranolazine (Ranexa) 500 mg PO BID [facility] Last Admin: 09/08/18 18:38 Dose: 500 mg Sevelamer Carbonate (Renvela) 1,600 mg PO TIDCC [facility] Last Admin: 09/09/18 07:45 Dose: 1,600 mg Tramadol HCl (Ultram) 100 mg PO TID PRN PRN Reason: pain Last Admin: 09/09/18 03:42 Dose: 100 mg Valproate Sodium (Depakene Cap) 250 mg PO QID [facility] Last Admin: 09/08/18 21:28 Dose: 250 mg Vitamin B Complex/Vit C/Folic Acid (Nephro-Courtney) 1 tab PO 0800 [facility] Last Admin: 09/09/18 07:43 Dose: 1 tab - Labs Labs: 09/08/18 11:25 09/04/18 14:16 - Constitutional Appears: Non-toxic - Head Exam Head Exam: ATRAUMATIC - Eye Exam Eye Exam: Conjunctival injection Pupil Exam: NORMAL ACCOMODATION Additional comments: blind - ENT Exam ENT Exam: Normal External Ear Exam - Neck Exam Neck Exam: Full ROM - Respiratory Exam Respiratory Exam: Clear to Ausculation Bilateral - Cardiovascular Exam Cardiovascular Exam: REGULAR RHYTHM - GI/Abdominal Exam GI & Abdominal Exam: Soft - Extremities Exam Additional comments: bilateral amputation - Neurological Exam Neurological Exam: Awake, Oriented x3 - Psychiatric Exam Psychiatric exam: Normal Affect - Skin Skin Exam: Pallor Assessment and Plan - Assessment and Plan (Free Text) Assessment: esrf aneamia dmid cad chf Plan: stable improved will d/c home today
[2018-09-09] MEDS: Insulin Detemir 100 units/ml Vial (Levemir) SC SCH (11:00)
--- NOTE | 2018-09-09 11:30 | CP.PCM.PN ---
Subjective - Date & Time of Evaluation Date of Evaluation: 09/09/18 Time of Evaluation: 11:29 - Subjective Subjective: Nephrology Consultation Note: Assessment: stable Pulmonary congestion, fluid overload, HTN urgency chronic chest pain, A flutter Diabetic chronic Kidney Disease (E11.22) Hypertensive Chronic Kidney Disease (I12.0) End stage renal disease (N18.6) dependence on hemodialysis (Z99.2) (TTS) via AVF Anemia (D64.9), Hyperphosphatemia (E83.39), Secondary Hyperparathyroidism (E21.1), HTN (I12.0) CAD s/p CABG, diastolic CHF, parox A flutter/fib, intra-cardiac thrombus, hx of Heparin induced thrombocytopenia, hx of seizure, blindness Plan: plan for dialysis as per TTS schedule Continue with Nephrovite 1 tab/day. on HANNAH with HD . PRBC As needed for anemia, last Hb 9.7 Continue with phos binders home dose; renvela. continue with calcitriol and sensipar 60 mg/d BP control with meds as ordered. on ARB as losartan (will hold) and d/c norvasc as BP low side Glycemic control, Dialysis consistent diet Further work up/management as per primary team Dose meds/antibiotics for ESRD status. Avoid fleets enema/magnesium based laxatives. cardiology following pt was seen for pain management, off opiates and started on tramadol, xanax. pt stable for d/c from renal perspective when planned. Thanks for allowing me to participate in care of your patient. Will follow patient with you. Please call if any Qs. had d/w team Dr Eric Temple Office: [phone] CC: SOB reason for consult: ESRD HPI: Pt is a 38 y/o transgender with hx of ESRD on hemodialysis (TTS) via permacath, chronic anemia, hyperphosphatemia, secondary hyperparathyroidism, Diabetes Mellitus, hypertension, CAD s/p CABG, diastolic CHF, pA flutter/fib, intra-cardiac thrombus, Heparin induced thrombocytopenia in past presented with complaints of SOB and chronic chest pain x 1 day. pt with recurrent and frequent hospitalizations for same complaints. ROS: All other negative except as in HPI. has chronic chest pain,SOB better. Physical Examination: General Appearance: in no acute respiratory distress, co-operative. Head; Atraumatic, normocephalic ENT: no ulcers no thrush. Tongue is midline. Oropharynx: no rash or ulcers. EYES: Pt is blind both eyes Neck; supple no lymphadenopathy, no thyromegaly or bruit Lungs: normal respiratory rate/effort. Breath sounds bilateral equal and few rales Heart: Normal rate. s1s2 normal. No rub or gallop. Extremities: no edema. No varicose veins. has b/l BKA. Neurological: Patient is awake follow commands no focal deficit Skin: Warm and dry. Normal turgor. No rash. Palpitation: Normal elasticity for age Abdomen: Abdomen is soft. Bowel sounds +. There is no abdominal tenderness, no guarding/rigidity or organomegaly Psych: limited insight and has normal affect/mood MSK: no joint tenderness or swelling. Digits and nails normal, no deformity : kidney or bladder not palpable Access: permacath Labs/imaging reviewed. Past medical history, past surgical history, family history, social history, allergy reviewed and noted as below Family Hx: no hx of CKD. Non contributory Objective - Vital Signs/Intake and Output Vital Signs (last 24 hours): Temp Pulse Resp BP Pulse Ox 97.7 F 59 L 20 113/71 100 09/09/18 07:35 09/09/18 09:19 09/09/18 07:35 09/09/18 09:30 09/09/18 07:35 Intake and Output: 09/09/18 09/09/18 06:59 18:59 Intake Total 300 Balance 300 - Medications Medications: Current Medications Acetaminophen (Tylenol 650mg/20.3ml Solution Ud) 650 mg PO Q6 PRN PRN Reason: Pain, moderate (4-7) Albuterol/Ipratropium (Duoneb 3 Mg/0.5 Mg (3 Ml) Ud) 3 ml INH RQ4 [facility] Last Admin: 09/09/18 07:55 Dose: 3 ml Alprazolam (Xanax) 1 mg PO HS [facility] Last Admin: 09/08/18 21:28 Dose: 1 mg Amiodarone HCl (Cordarone) 200 mg PO DAILY [facility] Last Admin: 09/09/18 09:30 Dose: 200 mg Apixaban (Eliquis) 2.5 mg PO BID [facility] Last Admin: 09/09/18 09:30 Dose: 2.5 mg Aspirin (Aspirin Chewable) 81 mg PO DAILY [facility] Last Admin: 09/08/18 09:53 Dose: 81 mg Calcitriol (Rocaltrol) 0.25 mcg PO TTS [facility] Last Admin: 09/09/18 09:30 Dose: 0.25 mcg Calcium Carbonate (Oscal) 500 mg PO BID [facility] Last Admin: 09/09/18 10:58 Dose: Not Given Carvedilol (Coreg) 12.5 mg PO BID [facility] Last Admin: 09/09/18 09:30 Dose: 12.5 mg Cinacalcet (Sensipar) 60 mg PO QPM [facility] Last Admin: 09/08/18 18:38 Dose: 60 mg Clopidogrel Bisulfate (Plavix) 75 mg PO DAILY [facility] Last Admin: 09/09/18 09:30 Dose: 75 mg Dextrose (Dextrose 50% Inj) 0 ml IV STAT PRN; Protocol PRN Reason: Hypoglycemia Protocol Last Admin: 09/04/18 07:05 Dose: 50 ml Dextrose (Glutose 15) 0 gm PO ONCE PRN; Protocol PRN Reason: Hypoglycemia Protocol Docusate Sodium (Colace) 100 mg PO PRN PRN PRN Reason: Constipation Last Admin: 09/09/18 09:30 Dose: 100 mg Epoetin Tom (Procrit) 10,000 unit IV TTS [facility] Last Admin: 09/06/18 10:42 Dose: 10,000 unit Ergocalciferol (Drisdol 50,000 Intl Units Cap) 1 cap PO Q7D [facility] Last Admin: 09/03/18 09:44 Dose: 1 cap Glucagon (Glucagen Diagnostic Kit) 0 mg IM STAT PRN; Protocol PRN Reason: Hypoglycemia Protocol Heparin Sodium (Porcine) (Heparin) 3,700 units IVP [facility] Stop: 09/12/18 23:59 Last Admin: 09/06/18 12:00 Dose: 3,700 units Insulin Detemir (Levemir) 22 unit SC DAILY [facility] Last Admin: 09/09/18 11:00 Dose: Not Given Insulin Glargine (Lantus) 8 unit SC [facility] Last Admin: 09/08/18 21:28 Dose: Not Given Insulin Human Regular (Novolin R) 0 unit SC [facility]; Protocol Last Admin: 09/09/18 07:36 Dose: Not Given Isosorbide Mononitrate (Imdur) 60 mg PO DAILY [facility] Last Admin: 09/09/18 09:30 Dose: 60 mg Levetiracetam (Keppra) 500 mg PO BID [facility] Last Admin: 09/09/18 10:56 Dose: 500 mg Montelukast Sodium (Singulair) 10 mg PO DAILY [facility] Last Admin: 09/09/18 09:30 Dose: 10 mg Ondansetron HCl (Zofran Inj) 4 mg IVP Q6H PRN PRN Reason: Nausea/Vomiting Last Admin: 09/09/18 11:18 Dose: 4 mg Pantoprazole Sodium (Protonix Ec Tab) 20 mg PO DAILY [facility] Last Admin: 09/09/18 09:30 Dose: 20 mg Ranolazine (Ranexa) 500 mg PO BID [facility] Last Admin: 09/09/18 09:30 Dose: 500 mg Sevelamer Carbonate (Renvela) 1,600 mg PO TIDCC [facility] Last Admin: 09/09/18 07:45 Dose: 1,600 mg Tramadol HCl (Ultram) 100 mg PO TID PRN PRN Reason: pain Last Admin: 09/09/18 10:54 Dose: 100 mg Valproate Sodium (Depakene Cap) 250 mg PO QID [facility] Last Admin: 09/09/18 09:30 Dose: 250 mg Vitamin B Complex/Vit C/Folic Acid (Nephro-Courtney) 1 tab PO 0800 [facility] Last Admin: 09/09/18 07:43 Dose: 1 tab - Labs Labs: 09/08/18 11:25 09/04/18 14:16
[2018-09-09] MEDS: Epoetin Alfa 10,000 unit/ml Dialysis IV SCH (16:08)
[2018-09-09] MEDS: (Lantus) Insulin Glargine, Recombinant SC SCH (22:13)
[2018-09-10] MEDS: Albuterol-Ipratrop 3 mg / 0.5 (3 ml) UD INH SCH ×4 (00:40→12:00)
[2018-09-10] MEDS: (Novolin R) Insulin Human Regular 100 units/ml vial SC SCH ×2 (07:32→11:30)
[2018-09-10] MEDS: Multivitamin Vitamin B Complex (Nephro-Vite) Tab PO SCH (08:28)
[2018-09-10] MEDS: Insulin Detemir 100 units/ml Vial (Levemir) SC SCH (10:06)
[2018-09-10] MEDS: Ergocalciferol 50,000 Intl Units Cap PO SCH (10:07)
[2018-09-10] MEDS: Ranolazine 500 mg Extended Release Tablets PO SCH (10:08)
[2018-09-10] MEDS: Pantoprazole 20 mg EC Tab PO SCH (10:08)
--- NOTE | 2018-09-10 10:53 | CP.PCM.PN ---
Subjective - Date & Time of Evaluation Date of Evaluation: 09/10/18 Time of Evaluation: 10:52 - Subjective Subjective: Nephrology Consultation Note: Assessment: stable Pulmonary congestion, fluid overload, HTN urgency chronic chest pain, A flutter Diabetic chronic Kidney Disease (E11.22) Hypertensive Chronic Kidney Disease (I12.0) End stage renal disease (N18.6) dependence on hemodialysis (Z99.2) (TTS) via AVF Anemia (D64.9), Hyperphosphatemia (E83.39), Secondary Hyperparathyroidism (E21.1), HTN (I12.0) CAD s/p CABG, diastolic CHF, parox A flutter/fib, intra-cardiac thrombus, hx of Heparin induced thrombocytopenia, hx of seizure, blindness Plan: plan for dialysis as per TTS schedule Continue with Nephrovite 1 tab/day. on HANNAH with HD . PRBC As needed for anemia, last Hb 9.7 Continue with phos binders home dose; renvela. hold calcitriol and sensipar 60 mg/d as latest PTH <50 BP control with meds as ordered. on ARB as losartan (will hold) and d/c norvasc as BP low side Glycemic control, Dialysis consistent diet Further work up/management as per primary team Dose meds/antibiotics for ESRD status. Avoid fleets enema/magnesium based laxatives. cardiology following pt was seen for pain management, off opiates and started on tramadol, xanax. pt stable for d/c from renal perspective when planned. Thanks for allowing me to participate in care of your patient. Will follow p atient with you. Please call if any Qs. had d/w team Dr Eric Temple Office: [phone] reason for consult: ESRD HPI: Pt is a 38 y/o transgender with hx of ESRD on hemodialysis (TTS) via permacath, chronic anemia, hyperphosphatemia, secondary hyperparathyroidism, Diabetes Mellitus, hypertension, CAD s/p CABG, diastolic CHF, pA flutter/fib, intra-cardiac thrombus, Heparin induced thrombocytopenia in past presented with complaints of SOB and chronic chest pain x 1 day. pt with recurrent and frequent hospitalizations for same complaints. ROS: All other negative except as in HPI. has chronic chest pain,SOB better. Physical Examination: General Appearance: in no acute respiratory distress, co-operative. Head; Atraumatic, normocephalic ENT: no ulcers no thrush. Tongue is midline. Oropharynx: no rash or ulcers. EYES: Pt is blind both eyes Neck; supple no lymphadenopathy, no thyromegaly or bruit Lungs: normal respiratory rate/effort. Breath sounds bilateral equal and clear Heart: Normal rate. s1s2 normal. No rub or gallop. Extremities: no edema. No varicose veins. has b/l BKA. Neurological: Patient is awake follow commands no focal deficit Skin: Warm and dry. Normal turgor. No rash. Palpitation: Normal elasticity for age Abdomen: Abdomen is soft. Bowel sounds +. There is no abdominal tenderness, no guarding/rigidity or organomegaly Psych: limited insight and has normal affect/mood MSK: no joint tenderness or swelling. Digits and nails normal, no deformity : kidney or bladder not palpable Access: permacath Labs/imaging reviewed. Past medical history, past surgical history, family history, social history, allergy reviewed and noted as below Family Hx: no hx of CKD. Non contributory Objective - Vital Signs/Intake and Output Vital Signs (last 24 hours): Temp Pulse Resp BP Pulse Ox 97.9 F 68 18 148/56 L 100 09/10/18 07:00 09/10/18 07:00 09/10/18 07:00 09/10/18 07:00 09/10/18 07:00 Intake and Output: 09/10/18 09/10/18 06:59 18:59 Intake Total 240 Balance 240 - Medications Medications: Current Medications Acetaminophen (Tylenol 650mg/20.3ml Solution Ud) 650 mg PO Q6 PRN PRN Reason: Pain, moderate (4-7) Albuterol/Ipratropium (Duoneb 3 Mg/0.5 Mg (3 Ml) Ud) 3 ml INH RQ4 [facility] Last Admin: 09/10/18 08:00 Dose: 3 ml Alprazolam (Xanax) 1 mg PO HS [facility] Last Admin: 09/09/18 22:12 Dose: 1 mg Amiodarone HCl (Cordarone) 200 mg PO DAILY [facility] Last Admin: 09/10/18 10:06 Dose: Not Given Apixaban (Eliquis) 2.5 mg PO BID [facility] Last Admin: 09/10/18 10:07 Dose: Not Given Aspirin (Aspirin Chewable) 81 mg PO DAILY [facility] Last Admin: 09/10/18 10:06 Dose: Not Given Calcium Carbonate (Oscal) 500 mg PO BID [facility] Last Admin: 09/10/18 10:07 Dose: Not Given Carvedilol (Coreg) 12.5 mg PO BID [facility] Last Admin: 09/10/18 10:06 Dose: Not Given Clopidogrel Bisulfate (Plavix) 75 mg PO DAILY [facility] Last Admin: 09/10/18 10:08 Dose: Not Given Dextrose (Dextrose 50% Inj) 0 ml IV STAT PRN; Protocol PRN Reason: Hypoglycemia Protocol Last Admin: 09/04/18 07:05 Dose: 50 ml Dextrose (Glutose 15) 0 gm PO ONCE PRN; Protocol PRN Reason: Hypoglycemia Protocol Docusate Sodium (Colace) 100 mg PO PRN PRN PRN Reason: Constipation Last Admin: 09/09/18 09:30 Dose: 100 mg Epoetin Otm (Procrit) 10,000 unit IV TTS [facility] Last Admin: 09/09/18 16:08 Dose: 10,000 unit Ergocalciferol (Drisdol 50,000 Intl Units Cap) 1 cap PO Q7D [facility] Last Admin: 09/10/18 10:07 Dose: Not Given Glucagon (Glucagen Diagnostic Kit) 0 mg IM STAT PRN; Protocol PRN Reason: Hypoglycemia Protocol Heparin Sodium (Porcine) (Heparin) 3,700 units IVP TTS [facility] Last Admin: 09/09/18 16:32 Dose: Not Given Heparin Sodium (Porcine) (Heparin) 3,700 units IVP TTS [facility] Last Admin: 09/09/18 16:32 Dose: 3,700 units Insulin Detemir (Levemir) 22 unit SC DAILY [facility] Last Admin: 09/10/18 10:06 Dose: Not Given Insulin Glargine (Lantus) 8 unit SC HS [facility] Last Admin: 09/09/18 22:13 Dose: 8 units Insulin Human Regular (Novolin R) 0 unit SC ACHS [facility]; Protocol Last Admin: 09/10/18 07:32 Dose: Not Given Isosorbide Mononitrate (Imdur) 60 mg PO DAILY [facility] Last Admin: 09/10/18 10:07 Dose: Not Given Levetiracetam (Keppra) 500 mg PO BID [facility] Last Admin: 09/10/18 10:07 Dose: Not Given Montelukast Sodium (Singulair) 10 mg PO DAILY [facility] Last Admin: 09/10/18 10:08 Dose: Not Given Ondansetron HCl (Zofran Inj) 4 mg IVP Q6H PRN PRN Reason: Nausea/Vomiting Last Admin: 09/10/18 08:28 Dose: 4 mg Pantoprazole Sodium (Protonix Ec Tab) 20 mg PO DAILY [facility] Last Admin: 09/10/18 10:08 Dose: Not Given Ranolazine (Ranexa) 500 mg PO BID [facility] Last Admin: 09/10/18 10:08 Dose: Not Given Sevelamer Carbonate (Renvela) 1,600 mg PO TIDCC [facility] Last Admin: 09/10/18 08:28 Dose: 1,600 mg Tramadol HCl (Ultram) 100 mg PO TID PRN PRN Reason: pain Last Admin: 09/10/18 03:54 Dose: 100 mg Valproate Sodium (Depakene Cap) 250 mg PO QID [facility] Last Admin: 09/10/18 10:06 Dose: Not Given Vitamin B Complex/Vit C/Folic Acid (Nephro-Courtney) 1 tab PO 0800 [facility] Last Admin: 09/10/18 08:28 Dose: 1 tab - Labs Labs: 09/08/18 11:25 09/04/18 14:16
--- NOTE | 2018-09-10 13:03 | CP.PCM.PN ---
Subjective - Date & Time of Evaluation Date of Evaluation: 09/10/18 Time of Evaluation: 12:59 - Subjective Subjective: feels good Objective - Vital Signs/Intake and Output Vital Signs (last 24 hours): Temp Pulse Resp BP Pulse Ox 97.9 F 68 18 148/56 L 100 09/10/18 07:00 09/10/18 07:00 09/10/18 07:00 09/10/18 07:00 09/10/18 07:00 Intake and Output: 09/10/18 09/10/18 06:59 18:59 Intake Total 240 Balance 240 - Medications Medications: Current Medications Acetaminophen (Tylenol 650mg/20.3ml Solution Ud) 650 mg PO Q6 PRN PRN Reason: Pain, moderate (4-7) Albuterol/Ipratropium (Duoneb 3 Mg/0.5 Mg (3 Ml) Ud) 3 ml INH RQ4 [facility] Last Admin: 09/10/18 08:00 Dose: 3 ml Alprazolam (Xanax) 1 mg PO HS [facility] Last Admin: 09/09/18 22:12 Dose: 1 mg Amiodarone HCl (Cordarone) 200 mg PO DAILY [facility] Last Admin: 09/10/18 10:06 Dose: Not Given Apixaban (Eliquis) 2.5 mg PO BID [facility] Last Admin: 09/10/18 10:07 Dose: Not Given Aspirin (Aspirin Chewable) 81 mg PO DAILY [facility] Last Admin: 09/10/18 10:06 Dose: Not Given Calcium Carbonate (Oscal) 500 mg PO BID [facility] Last Admin: 09/10/18 10:07 Dose: Not Given Carvedilol (Coreg) 12.5 mg PO BID [facility] Last Admin: 09/10/18 10:06 Dose: Not Given Clopidogrel Bisulfate (Plavix) 75 mg PO DAILY [facility] Last Admin: 09/10/18 10:08 Dose: Not Given Dextrose (Dextrose 50% Inj) 0 ml IV STAT PRN; Protocol PRN Reason: Hypoglycemia Protocol Last Admin: 09/04/18 07:05 Dose: 50 ml Dextrose (Glutose 15) 0 gm PO ONCE PRN; Protocol PRN Reason: Hypoglycemia Protocol Docusate Sodium (Colace) 100 mg PO PRN PRN PRN Reason: Constipation Last Admin: 09/09/18 09:30 Dose: 100 mg Epoetin Tom (Procrit) 10,000 unit IV TTS [facility] Last Admin: 09/09/18 16:08 Dose: 10,000 unit Ergocalciferol (Drisdol 50,000 Intl Units Cap) 1 cap PO Q7D [facility] Last Admin: 09/10/18 10:07 Dose: Not Given Glucagon (Glucagen Diagnostic Kit) 0 mg IM STAT PRN; Protocol PRN Reason: Hypoglycemia Protocol Heparin Sodium (Porcine) (Heparin) 3,700 units IVP TTS [facility] Last Admin: 09/09/18 16:32 Dose: Not Given Heparin Sodium (Porcine) (Heparin) 3,700 units IVP TTS [facility] Last Admin: 09/09/18 16:32 Dose: 3,700 units Insulin Detemir (Levemir) 22 unit SC DAILY [facility] Last Admin: 09/10/18 10:06 Dose: Not Given Insulin Glargine (Lantus) 8 unit SC [facility] Last Admin: 09/09/18 22:13 Dose: 8 units Insulin Human Regular (Novolin R) 0 unit SC [facility]; Protocol Last Admin: 09/10/18 07:32 Dose: Not Given Isosorbide Mononitrate (Imdur) 60 mg PO DAILY [facility] Last Admin: 09/10/18 10:07 Dose: Not Given Levetiracetam (Keppra) 500 mg PO BID [facility] Last Admin: 09/10/18 10:07 Dose: Not Given Montelukast Sodium (Singulair) 10 mg PO DAILY [facility] Last Admin: 09/10/18 10:08 Dose: Not Given Ondansetron HCl (Zofran Inj) 4 mg IVP Q6H PRN PRN Reason: Nausea/Vomiting Last Admin: 09/10/18 08:28 Dose: 4 mg Pantoprazole Sodium (Protonix Ec Tab) 20 mg PO DAILY [facility] Last Admin: 09/10/18 10:08 Dose: Not Given Ranolazine (Ranexa) 500 mg PO BID [facility] Last Admin: 09/10/18 10:08 Dose: Not Given Sevelamer Carbonate (Renvela) 1,600 mg PO TIDCC [facility] Last Admin: 09/10/18 08:28 Dose: 1,600 mg Tramadol HCl (Ultram) 100 mg PO TID PRN PRN Reason: pain Last Admin: 09/10/18 03:54 Dose: 100 mg Valproate Sodium (Depakene Cap) 250 mg PO QID [facility] Last Admin: 09/10/18 10:06 Dose: Not Given Vitamin B Complex/Vit C/Folic Acid (Nephro-Courtney) 1 tab PO 0800 [facility] Last Admin: 09/10/18 08:28 Dose: 1 tab - Labs Labs: 09/08/18 11:25 09/04/18 14:16 - Constitutional Appears: Non-toxic - Head Exam Head Exam: ATRAUMATIC - Eye Exam Eye Exam: Conjunctival injection - ENT Exam ENT Exam: Mucous Membranes Moist - Neck Exam Neck Exam: Full ROM - Respiratory Exam Respiratory Exam: Clear to Ausculation Bilateral - Cardiovascular Exam Cardiovascular Exam: REGULAR RHYTHM - GI/Abdominal Exam GI & Abdominal Exam: Normal Bowel Sounds - Extremities Exam Extremities Exam: Normal Inspection - Back Exam Back Exam: NORMAL INSPECTION - Neurological Exam Neurological Exam: Awake, Oriented x3 - Psychiatric Exam Psychiatric exam: Normal Affect - Skin Skin Exam: Normal Color Assessment and Plan - Assessment and Plan (Free Text) Assessment: cad esrf aneamia chf stable Plan: discharge today
--- NOTE | 2018-09-10 13:28 | PN ---
DATE: 09/10/2018 SUBJECTIVE: The patient will go home today. He is tolerating well the tramadol 100 mg p.o. t.i.d. p.r.n. and Xanax 1 mg at bedtime. Note, the patient is currently off Zoloft, advised not to take Zoloft as the patient is on high doses of tramadol to avoid serotonin syndrome side effect. I did instruct the nurse as well as the patient not to make a mistake of taking Zoloft at all. The patient has been on Zoloft for many years for depression but not exhibiting signs and symptoms of serotonin withdrawal syndrome. He has been compliant with meds and treatment with dialysis. PHYSICAL EXAMINATION: VITAL SIGNS: Temperature is 97.9, 68, 148/56, respirations is 18, oxygen saturation is 100%. GENERAL: The patient is alert, verbal, seen in his room, eating. The patient is anxious to be discharged, not in acute respiratory distress. SKIN: No diaphoresis. HEENT: Legally blind. No headache. NECK: Supple. RESPIRATORY: No dyspnea. CARDIOVASCULAR: No chest pain. GASTROINTESTINAL: He is eating well. EXTREMITIES: The patient is a bilateral amputee. Still has chronic pain, but seems to be controlled by tramadol. NEURO: Alert and oriented x3. GENITOURINARY: No dysuria. MENTAL STATUS EXAMINATION: A well-developed male who looks stated age, sitting in bed, oriented x3. The patient is anxious to go home. Affect is reactive. Speech is daze. Thought process coherent. Thought content, no overt psychosis. No suicidal ideation. Attention and memory seems to be fair. Insight and judgment fair. Impulse control is fair. IMPRESSION: History of depression, anxiety, mood disorder as well as history of drug-induced delirium, stable. RECOMMENDATIONS: The patient seen, meds reviewed. The patient can go home with Xanax 1 mg at bedtime. The patient to stay off from Zoloft as the patient is on high doses of tramadol 100 mg p.o. t.i.d. The patient to follow up with Dr. Li to continue dialysis as ordered. The patient at this time even though he had been stopped on Zoloft because the patient is on tramadol and off narcotics, the patient is not exhibiting signs and symptoms of serotonin withdrawal syndrome at this time. Dale Joseph MD [facility] # [id number]
[2018-09-10 16:30] VITALS: BP 134/75; PULSE 76; RESP 20; TEMP 98
--- NOTE | 2018-09-11 08:10 | PCM.HF ---
Heart Failure Core Measure - Heart Failure Ejection Fraction: 40 % or Greater RAÚL Inhibitor Prescribed: No Contraindication/Reason for not providing: ESRD Beta-Andrew Prescribed: Carvedilol Angiotensin II Receptor Andrew Prescribed: No Contraindication/Reason for not providing: ESRD AnticoagulationTherapy for Atrial Fibrillation/Atrialflutter: Yes Aldosterone Antagonist Prescribed: No Contraindication/Reason for not providing: ESRD Hydralazine Nitrate Prescribed: No Contraindication/Reason for not providing: ON AMIODORONE Implantable Cardioverter Defibrillator Therapy: No Contraindication/Reason for not providing: PT HAS PACEMAKER Cardiac Resynchronization Therapy Prescribed: No Contraindication/Reason for not providing: PT HAS PACE MAKER - Follow up Will be discharged to: Home Follow Up Date (must be within 7 days from discharge): 09/16/18 Follow Up Time: 16:00
--- NOTE | 2018-09-12 13:21 | HP ---
HISTORY OF PRESENT ILLNESS: The patient came in to the emergency room on 09/02/2018 for he had chest pain and short of breath. The patient known to have coronary artery disease. The symptoms started on the day of admission, 45 minutes before he came. He has no fever or vomiting. He has cough. PAST MEDICAL HISTORY: He has series of anemia, anxiety, end-stage renal failure, arthritis, asthma, atrial fibrillation, COPD, congestive heart failure, depression, diabetes mellitus, on insulin, and sometimes abdominal pain and hypertension, hyperlipidemia. PHYSICAL EXAMINATION: GENERAL: The patient is alert, oriented, in discomfort. He is coughing. VITAL SIGNS: Fever 97 to 98, pulse was 70, and his blood pressure 116/70. HEENT: Normal except he is blind. His eye exam is blind. His conjunctivae injected. LUNGS: Decreased breath sounds and some rales. ABDOMEN: Soft. Bowel sounds positive. LOWER EXTREMITIES: Status post bilateral amputation. ASSESSMENT: On admission, acute bronchitis, chronic obstructive pulmonary disease exacerbation, chest pain, coronary artery disease, end-stage renal failure, and diabetes mellitus. PLAN: We will admit the patient and continue as per orders. Sybil Li MD
--- NOTE | 2018-09-12 14:27 | DS ---
This patient is known to have coronary artery disease and he came in with severe chest pain, acute cough and short of breath. He was presented to the emergency room with these symptoms, yesterday started to have it on the same day. HISTORY OF PRESENT ILLNESS: He is a 38-year-old and he of these problems before. He was admitted and he was treated with antibiotics and nebulizer treatment and he has also depression, he was on medications for that. He always has dialysis, so Dr. Galindo was consulted for dialysis and he was taking dialysis with medication. The patient was seen also by Dr. Escobar cardiology consultation as he has known to be having coronary artery disease. His chest x-ray was done and it shows degenerative changes, cardiomegaly, atherosclerotic calcification of the aorta and right upper lobe infiltrate, which is hazy bilateral pulmonary opacities consistent with moderate pulmonary edema with congestion. He has heart failure and he has the beginning of pneumonia. He was gradually improving on medications and he was dialyzed more than usual and he was discharged on the same medication which he was taking before plus to continue on dialysis as an outpatient. FINAL DIAGNOSES: Acute bronchitis, pneumonia, congestive heart failure, coronary artery disease, diabetes mellitus, end-stage renal failure improved. Sybil Li MD
== END 2018-09-10 16:37 | disposition home or self-care (01) | DRG 541 ==
LOC: C.ER 16:25 → C.9E 19:31 → C.6T 20:29
PROVIDERS: ADMIT Internal Medicine; ATTEND Internal Medicine
PROC: 5A1D70Z Performance of Urinary Filtration, Intermittent, Less than 6 Hours Per Day (ICD-10-PCS; principal; 2018-09-03)
DX: J44.0 Chronic obstructive pulmonary disease with (acute) lower respiratory infection (principal); J18.9 Pneumonia, unspecified organism; I50.32 Chronic diastolic (congestive) heart failure; I13.2 Hypertensive heart and chronic kidney disease with heart failure and with stage 5 chronic kidney disease, or end stage renal disease; N18.6 End stage renal disease; I48.92 Unspecified atrial flutter; E87.5 Hyperkalemia; E11.22 Type 2 diabetes mellitus with diabetic chronic kidney disease; E11.42 Type 2 diabetes mellitus with diabetic polyneuropathy; J20.9 Acute bronchitis, unspecified; I25.118 Atherosclerotic heart disease of native coronary artery with other forms of angina pectoris; J44.1 Chronic obstructive pulmonary disease with (acute) exacerbation; I16.0 Hypertensive urgency; G89.4 Chronic pain syndrome; I48.91 Unspecified atrial fibrillation; N25.81 Secondary hyperparathyroidism of renal origin; Z79.4 Long term (current) use of insulin; Z99.2 Dependence on renal dialysis; Z95.5 Presence of coronary angioplasty implant and graft; Z95.1 Presence of aortocoronary bypass graft; Z89.511 Acquired absence of right leg below knee; Z89.512 Acquired absence of left leg below knee; Z86.711 Personal history of pulmonary embolism; F64.9 Gender identity disorder, unspecified; F41.9 Anxiety disorder, unspecified; F32.9 Major depressive disorder, single episode, unspecified; G30.9 Alzheimer's disease, unspecified; E78.00 Pure hypercholesterolemia, unspecified; E03.9 Hypothyroidism, unspecified; D64.9 Anemia, unspecified

== ENCOUNTER 2018-09-17 09:16 | Inpatient (IN) | payer OTHER | END 2018-09-20 17:05 | disposition home or self-care (01) | LOC: C.ER 09:16 → C.9E 11:10 → C.5S 18:44 ==

== ENCOUNTER 2018-11-20 12:23 | Inpatient (IN) | payer OTHER ==
[2018-11-20 12:24] VITALS: PULSE 110
[2018-11-20 12:30] VITALS: BMI 20.7
--- NOTE | 2018-11-20 13:19 | C.PDOC ---
History Of Present Illness 38 year old male, whose past medical history includes CHF, COPD, CVA, HTN, Hypercholesterolemia, ESRD (dialysis [facility]), is brought to the ED by ambulance for evaluation of chest pain which began prior to arrival. Patient sta ryder the chest pain began while he was 20 minutes into receiving hemodialysis today. Patient received a total of 5 sublingual nitroglycerin tablets from both dialysis center and EMS and received Aspirin prior to arrival. Patient reports experiencing similar symptoms in the past, but notes this time the pain radiates into his left arm and is associated with mild shortness of breath. Before today () patient reports he missed dialysis on Saturday and his last full dialysis was on Saturday (5 days ago). Patient denies feeling short of breath due to the missed dialysis. Patient denies feeling ill prior to onset of symptoms today, as well as nausea, vomiting, extremity numbness/weakness. PMD: Dr. Sybil Li Time Seen by Provider: 11/20/18 12:59 Chief Complaint (Nursing): Chest Pain History Per: Patient, EMS History/Exam Limitations: no limitations Onset/Duration Of Symptoms: Hrs Current Symptoms Are (Timing): Still Present Quality: "Pain" Associated Symptoms: denies: Nausea Additional History Per: Patient Past Medical History Reviewed: Historical Data, Nursing Documentation, Vital Signs Vital Signs: Last Vital Signs Temp 97.7 F 11/20/18 12:37 Pulse 94 H 11/20/18 13:12 Resp 22 11/20/18 13:12 BP 166/51 H 11/20/18 13:12 Pulse Ox 97 11/20/18 13:12 - Medical History PMH: Alzheimer's Disease, Anemia, Anxiety, Arthritis, Asthma, Atrial Fibrillation, Bronchitis, CAD, Cardia Arrhythmia, CHF, COPD, CVA, Depression, Diabetes, Deep Vein Thrombosis, Gastritis, Gastrointestinal Ulcer, Gall Bladder Disease, HTN, Hypercholesterolemia, Hypothyroidism, Kidney Stones, Pneumonia, Pulmonary Embolism, End Stage Renal Disease, Chronic Kidney Disease, Seizures Denies: Hyperthyroidism, Sexually Transmitted Disease Surgical History: CABG (12/2009), Cholecystectomy (2011), Coronary Stent - [facility] (09/17/18) ABDOMINAL WALL SINOGRAM (12/31/13) ASSISTANCE WITH RESPIRATORY VENTILATION, 24-96 HRS, CPAP (05/31/18) C.A.T. SCAN OF ABDOMEN (10/31/13) CENTRAL VENOUS CATHETER PLACEMENT WITH GUIDANCE (02/10/15) CHANGE OTHER DEVICE IN TRUNK SUBCU/FASCIA, FRUIT I FARMWORKER APPROACH (06/01/17) DILATE R ANT TIB ART W DRUG-ELUT INTRALUM, PERC (08/12/15) DILATION OF LEFT FEMORAL ARTERY, PERCUTANEOUS APPROACH (07/04/16) DILATION OF RIGHT FEMORAL ARTERY, PERCUTANEOUS APPROACH (08/12/15) DILATION OF RIGHT POPLITEAL ARTERY, PERCUTANEOUS APPROACH (08/12/15) DX ULTRASOUND-HEART (01/05/13) ENTERAL INFUSION OF CONCENTRATED NUT. SUBSTANCES (06/28/13) EXCIS DEBRIDE OF WOUND, INFECT, OR BURN (08/03/14) EXCISION OF STOMACH, ENDO, DIAGN (03/03/17) EXTIRPATION OF MATTER FROM L FEM ART, PERC APPROACH (07/04/16) EXTIRPATION OF MATTER FROM R FEM ART, PERC APPROACH (08/12/15) EXTIRPATION OF MATTER FROM R POPL ART, PERC APPROACH (08/12/15) FLUOROSCOPY OF L LOW EXTREM ART USING L OSM CONTRAST (08/12/15) FLUOROSCOPY OF R LOW EXTREM ART USING L OSM CONTRAST (08/12/15) FLUOROSCOPY OF RIGHT JUGULAR VEINS, GUIDANCE (06/01/17) FREE SKIN GRAFT NEC (08/03/14) HEAD SOFT TISS X-RAY NEC (04/15/13) HEMODIALYSIS (04/28/15) INCIS W REM OF FORIEGN BODY OR DEV FROM SKIN & SUBCUT TISSUE (08/08/13) INSERT INFUSION DEV IN R INT JUGULAR VEIN, PERC (06/01/17) INSERTION OF INFUSION DEV INTO R SUBCLAV VEIN, PERC APPROACH (01/19/16) INSERTION OF INFUSION DEV INTO SUP VENA CAVA, PERC APPROACH (01/07/18) INSPECTION OF UPPER INTESTINAL TRACT, ENDO (03/03/17) INTRODUCE OF OTH THROMBOLYTIC INTO PERIPH ART, PERC APPROACH (08/12/15) LAPAROSCOPIC CHOLECYSTECTOMY (09/21/13) LOC EXC LES METATAR/TAR (06/01/14) PACKED CELL TRANSFUSION (06/01/14) PERCUTAN LIVER ASPIRAT (12/31/13) PERFORMANCE OF URINARY FILTRATION, MULTIPLE (05/17/17) PERFORMANCE OF URINARY FILTRATION, SINGLE (12/18/16) SKIN & SUBQ INCISION NEC (10/24/14) TETANUS TOXOID ADMINIST (06/13/14) TRANSFUSE NONAUT RED BLOOD CELLS IN PERIPH VEIN, PERC (04/09/17) ULTRASONOGRAPHY OF RIGHT AND LEFT HEART (04/09/17) ULTRASONOGRAPHY OF SUPERIOR VENA CAVA, GUIDANCE (01/07/18) VENOUS CATHETERIZATION FOR RENAL DIALYSIS (08/08/13) VENOUS CATHETERIZATION NEC (04/30/13) Family History: States: Unknown Family Hx - Social History Hx Tobacco Use: No Hx Alcohol Use: No Hx Substance Use: No - Immunization History Hx Tetanus Toxoid Vaccination: Yes Hx Influenza Vaccination: Yes Hx Pneumococcal Vaccination: Yes Review Of Systems Cardiovascular: Positive for: Chest Pain Respiratory: Positive for: Shortness of Breath Gastrointestinal: Negative for: Nausea, Vomiting Musculoskeletal: Positive for: Arm Pain (left) Neurological: Negative for: Weakness, Numbness Physical Exam - Physical Exam Appears: Non-toxic, No Acute Distress Skin: Warm, Dry Head: Atraumatic, Normacephalic Eye(s): bilateral: Other (consistent with hazy cornea due to chronic blindness ) Oral Mucosa: Dry Teeth: No Normal Dentition (poor) Neck: Normal ROM, Trachea Midline Chest: Symmetrical, No Tenderness Cardiovascular: Rhythm Regular, No Murmur Respiratory: Normal Breath Sounds, No Rales, No Rhonchi, No Wheezing Gastrointestinal/Abdominal: Soft, No Tenderness Extremity: No Swelling, Other (bilateral above-knee amputations. Upper legs demonstrate no edema ) Neurological/Psych: Oriented x3, No Normal Speech (mild slurred speech ), No Other (focal weakness ) ED Course And Treatment - Laboratory Results Result Diagrams: 11/20/18 13:13 11/20/18 13:13 O2 Sat by Pulse Oximetry: 97 (on RA) Pulse Ox Interpretation: Normal - Other Rad CXR X-Ray: Viewed By Me, Read By Radiologist Interpretation: Date of service: 11/20/2018. HISTORY: Baseline. COMPARISON: Comparison made with prior study 09/18/2018. FINDINGS: No change right IJ dialysis catheter with tips in the SVC/RA junction. LUNGS: Mild pulmonary venous congestive changes although improved from prior study. Mild bibasilar atelectasis with small bilateral effusions left larger than right. PLEURA: No significant pleural effusion identified, no pneumothorax apparent. CARDIOVASCUL AR: Mild aortic atherosclerotic calcification present. Normal cardiac size. No pulmonary vascular congestion. OSSEOUS STRUCTURES: No significant abnormalities. VISUALIZED UPPER ABDOMEN: Normal. OTHER FINDINGS: None. IMPRESSION: Mild pulmonary venous congestive changes improved from prior study. Small bilateral effusions are present Medical Decision Making Medical Decision Making: Impression: 38 year old male with chest pain in the setting of cardiac risk factors Differential diagnoses include but are not limited to: fluid overload vs CHF vs electrolyte imbalance Plan: * bloodwork * CXR * EKG * reassess and disposition Progress: Bloodwork, CXR, EKG ordered and reviewed. 13:13 - Case discussed with patient's PMD, Dr. Li. Patient will be hospitalized pending ER workup. 1400 Labs demonstrate renal failure and normal troponin Disposition Counseled Patient/Family Regarding: Studies Performed, Diagnosis - Disposition Disposition Time: 14:00 Condition: FAIR - POA Present On Arrival: None Core Measure Indicators: Chest Pain - Clinical Impression Clinical Impression: ESRD (end stage renal disease), Chest pain - Scribe Statement The provider has reviewed the documentation as recorded by the Scribe (Yaneli Tavera) Provider Attestation: All medical record entries made by the Scribe were at my direction and personally dictated by me. I have reviewed the chart and agree that the record accurately reflects my personal performance of the history, physical exam, medical decision making, and the department course for this patient. I have also personally directed, reviewed, and agree with the discharge instructions and disposition.
[2018-11-20 13:28] LABS: BASO # 0.1 K/uL (0.0-0.2); BASO % 0.5 % (0.0-2.0); EOS # 0.3 K/uL (0.0-0.7); EOS % 2.7 % (0.0-4.0); HEMOGLOBIN 10.8 g/dL (12.0-18.0); LYMPH # 2.6 K/uL (1.0-4.3); LYMPH % 23.8 % (20.0-40.0); MEAN CORPUSCULAR HEMOGLOBIN 28.1 pg (27.0-31.0); MEAN PLATELET VOLUME 9.1 fL (7.2-11.7); MONO # 0.7 K/uL (0.0-0.8); MONO % 6.4 % (0.0-10.0); NEUT # 7.3 K/uL (1.8-7.0); NEUT % 66.6 % (50.0-75.0); NRBC % 0.1 % (0.0-2.0); RBC 3.84 Mil/uL (4.40-5.90); RED CELL DISTRIBUTION WIDTH 19.3 % (11.5-14.5); WHITE BLOOD COUNT 10.9 K/uL (4.8-10.8)
[2018-11-20 13:30] LABS: MEAN CELL VOLUME 87.6 fL (80.0-94.0)
[2018-11-20 13:38] LABS: INR 1.2; PROTHROMBIN TIME 13.3 SECONDS (9.7-12.2)
[2018-11-20 13:51] LABS: ALB/GLOB RATIO 1.2 (1.0-2.1); ALBUMIN 3.8 g/dL (3.5-5.0); AST/SGOT 21 U/L (17-59); BLOOD UREA NITROGEN 61 mg/dL (9-20); CALCIUM 9.5 mg/dl (8.6-10.4); GFR NON-AFRICAN AMERICAN 9
[2018-11-20 13:52] LABS: ALT/SGPT < 6 U/L (21-72)
[2018-11-20 14:02] LABS: CK-MB 1.51 ng/mL (0.0-3.38)
--- NOTE | 2018-11-20 14:13 | RAD ---
Date of service: 11/20/2018 HISTORY: Baseline COMPARISON: Comparison made with prior study 09/18/2018. FINDINGS: No change right IJ dialysis catheter with tips in the SVC/RA junction. LUNGS: Mild pulmonary venous congestive changes although improved from prior study. Mild bibasilar atelectasis with small bilateral effusions left larger than right PLEURA: No significant pleural effusion identified, no pneumothorax apparent. CARDIOVASCULAR: Mild aortic atherosclerotic calcification present. Normal cardiac size. No pulmonary vascular congestion. OSSEOUS STRUCTURES: No significant abnormalities. VISUALIZED UPPER ABDOMEN: Normal. OTHER FINDINGS: None. IMPRESSION: Mild pulmonary venous congestive changes improved from prior study. Small bilateral effusions are present
[2018-11-20 14:22] LABS: B-TYPE NATRIURETIC PEPTIDE 93600 pg/mL (0-450)
[2018-11-20] MEDS ORDERED: Aspirin 325 mg EC Tablets PO STA (14:29)
--- NOTE | 2018-11-20 16:26 | CP.PCM.CON ---
History of Present Illness - History of Present Illness History of Present Illness: Nephrology Consultation Note: Assessment:stable Pulmonary congestion, fluid overload, HTN urgency, missed HD acute on chronic chest pain, hx of A flutter Diabetic chronic Kidney Disease (E11.22) Hypertensive Chronic Kidney Disease (I12.0) End stage renal disease (N18.6) dependence on hemodialysis (Z99.2) (TTS) via AVF Anemia (D64.9), Hyperphosphatemia (E83.39), Secondary Hyperparathyroidism (E21.1 ), HTN (I12.0) CAD s/p CABG, diastolic CHF, parox A flutter/fib, intra-cardiac thrombus, hx of Heparin induced thrombocytopenia, hx of seizure, blindness Plan: plan for dialysis as per TTS schedule Continue with Nephrovite 1 tab/day. Not on on HANNAH with HD . PRBC As needed for anemia, last Hb 10.8 Continue with phos binders home dose; renvela. BP control with meds as ordered. BP high initially at admission but goes low on subsequent days Glycemic control, Dialysis consistent diet Further work up/management as per primary team Dose meds/antibiotics for ESRD status. Avoid fleets enema/magnesium based laxatives. Thanks for allowing me to participate in care of your patient. Will follow patient with you. Please call if any Qs. had d/w team Dr Eirc Temple Office: [phone] CC: SOB and chest pain reason for consult: ESRD HPI: Pt is a 38 y/o transgender with hx of ESRD on hemodialysis (TTS) via permacath, chronic anemia, hyperphosphatemia, secondary hyperparathyroidism, Diabetes Mellitus, hypertension, CAD s/p CABG, diastolic CHF, pA flutter/fib, intra-cardiac thrombus, Heparin induced thrombocytopenia in past presented with complaints of SOB and acute on chronic chest pain x today. pt with recurrent and frequent hospitalizations for same complaints. he had missed hD on saturday. last HD sat ROS: All other negative except as in HPI. has chronic chest pain, says SOB +but better. Physical Examination: General Appearance: co-operative. comfortable no acute distress Head; Atraumatic, normocephalic ENT: no ulcers no thrush. Tongue is midline. Oropharynx: no rash or ulcers. EYES: Pt is blind both eyes Neck; supple no lymphadenopathy, no thyromegaly or bruit Lungs: Improved respiratory rate/effort. Breath sounds bilateral reduced with few crackles Heart: Normal rate. s1s2 normal. No rub or gallop. Extremities: no edema. No varicose veins. has b/l BKA. Neurological: Patient is awake follow commands no focal deficit Skin: Warm and dry. Normal turgor. No rash. Palpitation: Normal elasticity for age Abdomen: Abdomen is soft. Bowel sounds +. There is no abdominal tenderness, no guarding/rigidity or organomegaly Psych: limited insight and has normal affect/mood MSK: no joint tenderness or swelling. Digits and nails normal, no deformity : kidney or bladder not palpable Access: permacath Labs/imaging reviewed. Past medical history, past surgical history, family history, social history, allergy reviewed and noted as below Family Hx: no hx of CKD. Non contributory Past Patient History - Infectious Disease Hx of Infectious Diseases: None - Tetanus Immunizations Tetanus Immunization: >10 years Ago - Past Medical History & Family History Past Medical History?: Yes - Past Social History Smoking Status: Never Smoked - CARDIAC Hx Atrial Fibrillation: Yes Hx Cardia Arrhythmia: Yes Hx Congestive Heart Failure: Yes Hx Hypercholesterolemia: Yes Hx Hypertension: Yes - PULMONARY Hx Asthma: Yes Hx Bronchitis: Yes Hx Chronic Obstructive Pulmonary Disease (COPD): Yes Hx Pneumonia: Yes Hx Pulmonary Embolism: Yes - NEUROLOGICAL Hx Alzheimer's Disease: Yes Hx Seizures: Yes - HEENT Hx HEENT Problems: Yes Hx Blind: Yes Hx Cataracts: Yes - RENAL Hx Chronic Kidney Disease: Yes Hx Kidney Stones: Yes - ENDOCRINE/METABOLIC Hx Hyperthyroidism: No Hx Hypothyroidism: Yes - HEMATOLOGICAL/ONCOLOGICAL Hx Anemia: Yes - INTEGUMENTARY Hx Dermatological Problems: No - MUSCULOSKELETAL/RHEUMATOLOGICAL Hx Arthritis: Yes - GASTROINTESTINAL Hx Gall Bladder Disease: Yes Hx Gastritis: Yes - GENITOURINARY/GYNECOLOGICAL Hx Sexually Transmitted Disorders: No - PSYCHIATRIC Hx Anxiety: Yes Hx Depression: Yes Hx Substance Use: No - SURGICAL HISTORY Hx Cholecystectomy: Yes (2011) 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/2009) Hx Coronary Stent: Yes - ANESTHESIA Hx Anesthesia: Yes Hx Anesthesia Reactions: No Hx Malignant Hyperthermia: No Meds Allergies/Adverse Reactions: Allergies Allergy/AdvReac Type Severity Reaction Status Date / Time acetaminophen [From Percocet] Allergy RASH Verified 11/20/18 12:35 atenolol Allergy RASH Verified 11/20/18 12:35 digoxin Allergy RASH Verified 11/20/18 12:35 milk Allergy ITCHING Verified 11/20/18 12:35 morphine Allergy RASH Verified 11/20/18 12:35 oxycodone HCl [From Percocet] Allergy RASH Verified 11/20/18 12:35 eggs Allergy Uncoded 11/20/18 12:35 Results - Vital Signs Recent Vital Signs: Last Vital Signs Temp 97.7 F 11/20/18 12:37 Pulse 67 11/20/18 15:59 Resp 15 11/20/18 15:59 BP 189/81 H 11/20/18 15:59 Pulse Ox 97 11/20/18 16:06 - Labs Result Diagrams: 11/20/18 13:13 11/20/18 13:13 Labs: Laboratory Results - last 24 hr 11/20/18 11/20/18 11/20/18 13:13 13:13 13:13 WBC 10.9 H RBC 3.84 L Hgb 10.8 L Hct 33.7 L MCV 87.6 D MCH 28.1 MCHC 32.0 L RDW 19.3 H Plt Count 188 MPV 9.1 Neut % (Auto) 66.6 Lymph % (Auto) 23.8 [place] % (Auto) 6.4 Eos % (Auto) 2.7 Baso % (Auto) 0.5 Neut # (Auto) 7.3 H Lymph # (Auto) 2.6 [place] # (Auto) 0.7 Eos # (Auto) 0.3 Baso # (Auto) 0.1 PT 13.3 H INR 1.2 APTT 37 H Sodium 134 Potassium 4.7 Chloride 98 Carbon Dioxide 23 Anion Gap 19 BUN 61 H Creatinine 7.2 H Est GFR ( Amer) 10 Est GFR (Non-Af Amer) 9 POC Glucose (mg/dL) Random Glucose 155 H D Calcium 9.5 Magnesium 2.2 Total Bilirubin 0.6 AST 21 ALT < 6 L D Alkaline Phosphatase 146 H D Total Creatine Kinase 26 L CK-MB (Mass) 1.51 Troponin I 0.0400 NT-Pro-B Natriuret Pep 92093 H Total Protein 7.0 Albumin 3.8 Globulin 3.1 Albumin/Globulin Ratio 1.2 11/20/18 14:26 WBC RBC Hgb Hct MCV MCH MCHC RDW Plt Count MPV Neut % (Auto) Lymph % (Auto) [place] % (Auto) Eos % (Auto) Baso % (Auto) Neut # (Auto) Lymph # (Auto) [place] # (Auto) Eos # (Auto) Baso # (Auto) PT INR APTT Sodium Potassium Chloride Carbon Dioxide Anion Gap BUN Creatinine Est GFR ( Amer) Est GFR (Non-Af Amer) POC Glucose (mg/dL) 191 H Random Glucose Calcium Magnesium Total Bilirubin AST ALT Alkaline Phosphatase Total Creatine Kinase CK-MB (Mass) Troponin I NT-Pro-B Natriuret Pep Total Protein Albumin Globulin Albumin/Globulin Ratio
--- NOTE | 2018-11-20 16:51 | CP.PCM.HP ---
History of Present Illness - History of Present Illness History of Present Illness: mised dialysis came in for sob chest pain l side radiating to l arm Present on Admission - Present on Admission Any Indicators Present on Admission: No Past Patient History - Infectious Disease Hx of Infectious Diseases: None - Tetanus Immunizations Tetanus Immunization: >10 years Ago - Past Medical History & Family History Past Medical History?: Yes - Past Social History Smoking Status: Never Smoked - CARDIAC Hx Atrial Fibrillation: Yes Hx Cardia Arrhythmia: Yes Hx Congestive Heart Failure: Yes Hx Hypercholesterolemia: Yes Hx Hypertension: Yes - PULMONARY Hx Asthma: Yes Hx Bronchitis: Yes Hx Chronic Obstructive Pulmonary Disease (COPD): Yes Hx Pneumonia: Yes Hx Pulmonary Embolism: Yes - NEUROLOGICAL Hx Alzheimer's Disease: Yes Hx Seizures: Yes - HEENT Hx HEENT Problems: Yes Hx Blind: Yes Hx Cataracts: Yes - RENAL Hx Chronic Kidney Disease: Yes Hx Kidney Stones: Yes - ENDOCRINE/METABOLIC Hx Hyperthyroidism: No Hx Hypothyroidism: Yes - HEMATOLOGICAL/ONCOLOGICAL Hx Anemia: Yes - INTEGUMENTARY Hx Dermatological Problems: No - MUSCULOSKELETAL/RHEUMATOLOGICAL Hx Arthritis: Yes - GASTROINTESTINAL Hx Gall Bladder Disease: Yes Hx Gastritis: Yes - GENITOURINARY/GYNECOLOGICAL Hx Sexually Transmitted Disorders: No - PSYCHIATRIC Hx Anxiety: Yes Hx Depression: Yes Hx Substance Use: No - SURGICAL HISTORY Hx Cholecystectomy: Yes (2011) 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/2009) Hx Coronary Stent: Yes - ANESTHESIA Hx Anesthesia: Yes Hx Anesthesia Reactions: No Hx Malignant Hyperthermia: No Meds Allergies/Adverse Reactions: Allergies Allergy/AdvReac Type Severity Reaction Status Date / Time acetaminophen [From Percocet] Allergy RASH Verified 11/20/18 12:35 atenolol Allergy RASH Verified 11/20/18 12:35 digoxin Allergy RASH Verified 11/20/18 12:35 milk Allergy ITCHING Verified 11/20/18 12:35 morphine Allergy RASH Verified 11/20/18 12:35 oxycodone HCl [From Percocet] Allergy RASH Verified 11/20/18 12:35 eggs Allergy Uncoded 11/20/18 12:35 Physical Exam - Constitutional Appears: In Acute Distress - Head Exam Head Exam: ATRAUMATIC - Eye Exam Additional comments: blind - ENT Exam ENT Exam: Mucous Membranes Dry - Neck Exam Neck exam: Positive for: Normal Inspection - Respiratory Exam Respiratory Exam: Decreased Breath Sounds, Rales - Cardiovascular Exam Cardiovascular Exam: REGULAR RHYTHM - GI/Abdominal Exam GI & Abdominal Exam: Normal Bowel Sounds - Exam Additional comments: klifilter syndrome abn genetalia - Extremities Exam Additional comments: bilateral amputation - Back Exam Back exam: NORMAL INSPECTION - Neurological Exam Neurological exam: Alert, Oriented x3 - Psychiatric Exam Psychiatric exam: Normal Affect - Skin Skin Exam: Dry Results - Vital Signs Recent Vital Signs: Last Vital Signs Temp 97.7 F 11/20/18 12:37 Pulse 67 11/20/18 15:59 Resp 15 11/20/18 15:59 BP 189/81 H 11/20/18 15:59 Pulse Ox 97 11/20/18 16:06 - Labs Result Diagrams: 11/20/18 13:13 11/20/18 13:13 Labs: Laboratory Results - last 24 hr 11/20/18 11/20/18 11/20/18 13:13 13:13 13:13 WBC 10.9 H RBC 3.84 L Hgb 10.8 L Hct 33.7 L MCV 87.6 D MCH 28.1 MCHC 32.0 L RDW 19.3 H Plt Count 188 MPV 9.1 Neut % (Auto) 66.6 Lymph % (Auto) 23.8 [place] % (Auto) 6.4 Eos % (Auto) 2.7 Baso % (Auto) 0.5 Neut # (Auto) 7.3 H Lymph # (Auto) 2.6 [place] # (Auto) 0.7 Eos # (Auto) 0.3 Baso # (Auto) 0.1 PT 13.3 H INR 1.2 APTT 37 H Sodium 134 Potassium 4.7 Chloride 98 Carbon Dioxide 23 Anion Gap 19 BUN 61 H Creatinine 7.2 H Est GFR ( Amer) 10 Est GFR (Non-Af Amer) 9 POC Glucose (mg/dL) Random Glucose 155 H D Calcium 9.5 Magnesium 2.2 Total Bilirubin 0.6 AST 21 ALT < 6 L D Alkaline Phosphatase 146 H D Total Creatine Kinase 26 L CK-MB (Mass) 1.51 Troponin I 0.0400 NT-Pro-B Natriuret Pep 08851 H Total Protein 7.0 Albumin 3.8 Globulin 3.1 Albumin/Globulin Ratio 1.2 11/20/18 14:26 WBC RBC Hgb Hct MCV MCH MCHC RDW Plt Count MPV Neut % (Auto) Lymph % (Auto) [place] % (Auto) Eos % (Auto) Baso % (Auto) Neut # (Auto) Lymph # (Auto) [place] # (Auto) Eos # (Auto) Baso # (Auto) PT INR APTT Sodium Potassium Chloride Carbon Dioxide Anion Gap BUN Creatinine Est GFR ( Amer) Est GFR (Non-Af Amer) POC Glucose (mg/dL) 191 H Random Glucose Calcium Magnesium Total Bilirubin AST ALT Alkaline Phosphatase Total Creatine Kinase CK-MB (Mass) Troponin I NT-Pro-B Natriuret Pep Total Protein Albumin Globulin Albumin/Globulin Ratio Assessment & Plan - Assessment and Plan (Free Text) Assessment: ac recurent chf chest pain cad dmid esrf on dialysis aneamia klinfilter syndrome Plan: as per orders - Date & Time Date: 11/20/18 Time: 16:55
[2018-11-20] MEDS ORDERED: Digoxin 125 mcg (0.125 mg) Tab PO SCH (17:15)
[2018-11-20] MEDS ORDERED: (Lantus) Insulin Glargine, Recombinant SC SCH (22:00)
[2018-11-20] MEDS: Insulin Detemir 100 units/ml Vial (Levemir) SC SCH (22:55)
[2018-11-20] MEDS: Albuterol-Ipratrop 3 mg / 0.5 (3 ml) UD IH SCH (23:51)
[2018-11-21] MEDS: Albuterol-Ipratrop 3 mg / 0.5 (3 ml) UD IH SCH ×2 (03:15→03:56)
[2018-11-21] MEDS ORDERED: Metoprolol 1 mg/ml Inj IVP ONE (05:29)
[2018-11-21 06:37] LABS: BASO % 0.4 % (0.0-2.0); EOS # 0.3 K/uL (0.0-0.7); EOS % 2.6 % (0.0-4.0); HEMOGLOBIN 13.3 g/dL (12.0-18.0); LYMPH # 2.6 K/uL (1.0-4.3); LYMPH % 23.8 % (20.0-40.0); MEAN CORPUSCULAR HEMOGLOBIN 27.5 pg (27.0-31.0); MEAN CORPUSCULAR HGB CONC 31.6 g/dL (33.0-37.0); MEAN PLATELET VOLUME 9.8 fL (7.2-11.7); MONO % 9.1 % (0.0-10.0); NEUT # 7.1 K/uL (1.8-7.0); NEUT % 64.1 % (50.0-75.0); NRBC % 0.1 % (0.0-2.0); RBC 4.83 Mil/uL (4.40-5.90); RED CELL DISTRIBUTION WIDTH 19.4 % (11.5-14.5); WHITE BLOOD COUNT 11.1 K/uL (4.8-10.8)
--- NOTE | 2018-11-21 07:03 | CP.PCM.PCO ---
Additional Comments - Additional Comments Additional Comments: Evaluated patient as ekg read as ST elevations in the inferior lead, it was done as HR increased to 150's/min, after pt received neb treatment. In my review flutter waves are seen in the EKG and computer read is identifying those p waves as ST elevations. He denies cp, has some back pain and request pain meds for back. An EKG will be done when patient intermittently breaks down to sinus rhythm or slows down. Am coreg has been ordered now to assist rate and rhythm control. Dig level ordered as listed his home meds. Duoneb has been put on hold. Patient denies cp, sob.
[2018-11-21 08:49] LABS: CK-MB 1.14 ng/mL (0.0-3.38)
[2018-11-21 08:50] LABS: ALB/GLOB RATIO 1.1 (1.0-2.1); ALBUMIN 5.1 g/dL (3.5-5.0); ALT/SGPT < 6 U/L (21-72); AST/SGOT 111 U/L (17-59); BLOOD UREA NITROGEN 22 mg/dL (9-20); GFR NON-AFRICAN AMERICAN 19
--- NOTE | 2018-11-21 10:12 | CP.PCM.PN ---
Subjective - Date & Time of Evaluation Date of Evaluation: 11/21/18 Time of Evaluation: 10:10 - Subjective Subjective: pt still c/o of chest pain was 3 am and sob triponin negative Objective - Vital Signs/Intake and Output Vital Signs (last 24 hours): Temp Pulse Resp BP Pulse Ox 98.0 F 80 18 137/109 H 100 11/21/18 07:00 11/21/18 07:00 11/21/18 07:00 11/21/18 07:07 11/21/18 07:00 - Medications Medications: Current Medications Albuterol/Ipratropium (Duoneb 3 Mg/0.5 Mg (3 Ml) Ud) 3 ml IH RQ4 [facility] Last Admin: 11/21/18 03:56 Dose: 3 ml Apixaban (Eliquis) 2.5 mg PO BID [facility] Carvedilol (Coreg) 25 mg PO BID [facility] Cinacalcet (Sensipar) 30 mg PO DAILY [facility] Clonidine HCl (Catapres) 0.2 mg PO TID [facility] Insulin Detemir (Levemir) 10 unit SC AMHS [facility] Last Admin: 11/20/18 22:55 Dose: 10 units Insulin Glargine (Lantus) 10 unit SC HS [facility] Last Admin: 11/20/18 22:55 Dose: 10 units Montelukast Sodium (Singulair) 10 mg PO DAILY [facility] Vitamin B Complex/Vit C/Folic Acid (Nephro-Courtney) 1 tab PO DAILY [facility] - Labs Labs: 11/21/18 06:25 11/21/18 06:20 PT 13.3 SECONDS (9.7-12.2) H 11/20/18 13:13 INR 1.2 11/20/18 13:13 APTT 37 SECONDS (21-34) H 11/20/18 13:13 - Constitutional Appears: Non-toxic - Head Exam Head Exam: ATRAUMATIC - Eye Exam Additional comments: blind - ENT Exam ENT Exam: Mucous Membranes Moist - Neck Exam Neck Exam: Full ROM - Respiratory Exam Respiratory Exam: Decreased Breath Sounds, Clear to Ausculation Bilateral, Rales - Cardiovascular Exam Cardiovascular Exam: REGULAR RHYTHM - GI/Abdominal Exam GI & Abdominal Exam: Normal Bowel Sounds - Skin Skin Exam: Pallor Assessment and Plan - Assessment and Plan (Free Text) Assessment: recurent chf cad recurent chest pain dmid depression esrf aneamia Plan: as ordered
--- NOTE | 2018-11-21 10:36 | CP.PCM.CON ---
History of Present Illness - History of Present Illness History of Present Illness: 38 y/o with the following chronic medical problems: 1. ESRD chronic with periods of missed HD 2. HTN is chornic and labile on multiple meds >3-4 3. Angina chornic and stable hx CABG now with atretic grafts s/p PCI if RCA and stable on imdur: non-revascularizable smallvessel residual coronary disease 4. Severe PVD s/p bilateral BKA 4. DM brittle labile sugers 5. AFIB/flutter: on NOAC ; hx of RA thrombus in past due to chronic indwelling HD catheter 6. Moderate LV dysfunction EF 40% chronic 7. Hx of HIT is brought to the ED by ambulance for evaluation of chest pain which began prior to arrival. Patient states the chest pain began while he was 20 minutes into receiving hemodialysis today. Patient received a total of 5 sublingual nitroglycerin tablets from both dialysis center and EMS and received Aspirin prior to arrival. Patient reports experiencing similar symptoms in the past, but notes this time the pain radiates into his left arm and is associated with mild shortness of breath. Before today () patient reports he missed dialysis on Saturday and his last full dialysis was on Saturday (5 days ago). Patient denies feeling short of breath due to the missed dialysis. Patient denies feeling ill prior to onset of symptoms today, as well as nausea, vomiting, extremity numbness/weakness. Review of Systems - Review of Systems All systems: reviewed and no additional remarkable complaints except Past Patient History - Infectious Disease Hx of Infectious Diseases: None - Tetanus Immunizations Tetanus Immunization: >10 years Ago - Past Medical History & Family History Past Medical History?: Yes - Past Social History Smoking Status: Former Smoker - CARDIAC Hx Atrial Fibrillation: Yes Hx Cardia Arrhythmia: Yes Hx Congestive Heart Failure: Yes Hx Hypercholesterolemia: Yes Hx Hypertension: Yes - PULMONARY Hx Asthma: Yes Hx Bronchitis: Yes Hx Chronic Obstructive Pulmonary Disease (COPD): Yes Hx Pneumonia: Yes Hx Pulmonary Embolism: Yes - NEUROLOGICAL Hx Alzheimer's Disease: Yes Hx Seizures: Yes - HEENT Hx HEENT Problems: Yes Hx Blind: Yes Hx Cataracts: Yes - RENAL Hx Chronic Kidney Disease: Yes Date of Last Dialysis Treatment: 11/20/18 Hx Kidney Stones: Yes - ENDOCRINE/METABOLIC Hx Hyperthyroidism: No Hx Hypothyroidism: Yes - HEMATOLOGICAL/ONCOLOGICAL Hx Anemia: Yes - INTEGUMENTARY Hx Dermatological Problems: No - MUSCULOSKELETAL/RHEUMATOLOGICAL Hx Arthritis: Yes Hx Falls: No - GASTROINTESTINAL Hx Gall Bladder Disease: Yes Hx Gastritis: Yes - GENITOURINARY/GYNECOLOGICAL Hx Sexually Transmitted Disorders: No - PSYCHIATRIC Hx Anxiety: Yes Hx Depression: Yes Hx Substance Use: No - SURGICAL HISTORY Hx Cholecystectomy: Yes (2011) 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/2009) Hx Coronary Stent: Yes - ANESTHESIA Hx Anesthesia: Yes Hx Anesthesia Reactions: No Hx Malignant Hyperthermia: No Meds Allergies/Adverse Reactions: Allergies Allergy/AdvReac Type Severity Reaction Status Date / Time acetaminophen [From Percocet] Allergy RASH Verified 11/20/18 12:35 atenolol Allergy RASH Verified 11/20/18 12:35 digoxin Allergy RASH Verified 11/20/18 12:35 milk Allergy ITCHING Verified 11/20/18 12:35 morphine Allergy RASH Verified 11/20/18 12:35 oxycodone HCl [From Percocet] Allergy RASH Verified 11/20/18 12:35 eggs Allergy Uncoded 11/20/18 12:35 - Medications Medications: Current Medications Albuterol/Ipratropium (Duoneb 3 Mg/0.5 Mg (3 Ml) Ud) 3 ml IH RQ4 [facility] Last Admin: 11/21/18 03:56 Dose: 3 ml Apixaban (Eliquis) 2.5 mg PO BID [facility] Carvedilol (Coreg) 25 mg PO BID [facility] Cinacalcet (Sensipar) 30 mg PO DAILY [facility] Clonidine HCl (Catapres) 0.2 mg PO TID [facility] Insulin Detemir (Levemir) 10 unit SC AMHS [facility] Last Admin: 11/20/18 22:55 Dose: 10 units Montelukast Sodium (Singulair) 10 mg PO DAILY [facility] Vitamin B Complex/Vit C/Folic Acid (Nephro-Courtney) 1 tab PO DAILY [facility] Physical Exam - Constitutional Appears: Chronically Ill - Head Exam Head Exam: ATRAUMATIC, NORMAL INSPECTION, NORMOCEPHALIC - Eye Exam Eye Exam: absent: Normal appearance (legally blind), Scleral icterus - ENT Exam ENT Exam: Mucous Membranes Moist, Normal Oropharynx - Neck Exam Neck exam: Positive for: Normal Inspection - Respiratory Exam Respiratory Exam: Rhonchi. absent: Rales - Cardiovascular Exam Cardiovascular Exam: Tachycardia, REGULAR RHYTHM - GI/Abdominal Exam GI & Abdominal Exam: Soft. absent: Tenderness - Skin Skin Exam: Normal Color (B/L BKA) Results - Vital Signs Recent Vital Signs: Last Vital Signs Temp 98.0 F 11/21/18 07:00 Pulse 80 11/21/18 07:00 Resp 18 11/21/18 07:00 BP 137/109 H 11/21/18 07:07 Pulse Ox 100 11/21/18 07:00 - Labs Result Diagrams: 11/21/18 06:25 11/21/18 06:20 Labs: Laboratory Results - last 24 hr 11/20/18 11/20/18 11/20/18 13:13 13:13 13:13 WBC 10.9 H RBC 3.84 L Hgb 10.8 L Hct 33.7 L MCV 87.6 D MCH 28.1 MCHC 32.0 L RDW 19.3 H Plt Count 188 MPV 9.1 Neut % (Auto) 66.6 Lymph % (Auto) 23.8 Bacon % (Auto) 6.4 Eos % (Auto) 2.7 Baso % (Auto) 0.5 Neut # (Auto) 7.3 H Lymph # (Auto) 2.6 Bacon # (Auto) 0.7 Eos # (Auto) 0.3 Baso # (Auto) 0.1 PT 13.3 H INR 1.2 APTT 37 H Sodium 134 Potassium 4.7 Chloride 98 Carbon Dioxide 23 Anion Gap 19 BUN 61 H Creatinine 7.2 H Est GFR ( Amer) 10 Est GFR (Non-Af Amer) 9 POC Glucose (mg/dL) Random Glucose 155 H D Calcium 9.5 Phosphorus Magnesium 2.2 Total Bilirubin 0.6 AST 21 ALT < 6 L D Alkaline Phosphatase 146 H D Total Creatine Kinase 26 L CK-MB (Mass) 1.51 Troponin I 0.0400 NT-Pro-B Natriuret Pep 24489 H Total Protein 7.0 Albumin 3.8 Globulin 3.1 Albumin/Globulin Ratio 1.2 Digoxin 11/20/18 11/20/18 11/20/18 14:26 17:27 23:10 WBC RBC Hgb Hct MCV MCH MCHC RDW Plt Count MPV Neut % (Auto) Lymph % (Auto) Bacon % (Auto) Eos % (Auto) Baso % (Auto) Neut # (Auto) Lymph # (Auto) Bacon # (Auto) Eos # (Auto) Baso # (Auto) PT INR APTT Sodium Potassium Chloride Carbon Dioxide Anion Gap BUN Creatinine Est GFR ( Amer) Est GFR (Non-Af Amer) POC Glucose (mg/dL) 191 H 210 H 201 H Random Glucose Calcium Phosphorus Magnesium Total Bilirubin AST ALT Alkaline Phosphatase Total Creatine Kinase CK-MB (Mass) Troponin I NT-Pro-B Natriuret Pep Total Protein Albumin Globulin Albumin/Globulin Ratio Digoxin 11/21/18 11/21/18 11/21/18 05:42 06:20 06:25 WBC 11.1 H RBC 4.83 Hgb 13.3 D Hct 42.1 MCV 87.0 MCH 27.5 MCHC 31.6 L RDW 19.4 H Plt Count 206 MPV 9.8 Neut % (Auto) 64.1 Lymph % (Auto) 23.8 Bacon % (Auto) 9.1 Eos % (Auto) 2.6 Baso % (Auto) 0.4 Neut # (Auto) 7.1 H Lymph # (Auto) 2.6 Bacon # (Auto) 1.0 H Eos # (Auto) 0.3 Baso # (Auto) 0.0 PT INR APTT Sodium 135 Potassium 5.2 Chloride 97 L Carbon Dioxide 26 Anion Gap 17 BUN 22 H Creatinine 3.7 H Est GFR ( Amer) 22 Est GFR (Non-Af Amer) 19 POC Glucose (mg/dL) 202 H Random Glucose 185 H Calcium 10.0 Phosphorus 5.8 H Magnesium 2.2 Total Bilirubin 1.8 H AST 111 H D ALT < 6 L Alkaline Phosphatase 183 H D Total Creatine Kinase 43 L CK-MB (Mass) 1.14 Troponin I 0.0370 NT-Pro-B Natriuret Pep Total Protein 9.5 H Albumin 5.1 H D Globulin 4.4 H Albumin/Globulin Ratio 1.1 Digoxin 11/21/18 08:17 WBC RBC Hgb Hct MCV MCH MCHC RDW Plt Count MPV Neut % (Auto) Lymph % (Auto) Bacon % (Auto) Eos % (Auto) Baso % (Auto) Neut # (Auto) Lymph # (Auto) Bacon # (Auto) Eos # (Auto) Baso # (Auto) PT INR APTT Sodium Potassium Chloride Carbon Dioxide Anion Gap BUN Creatinine Est GFR ( Amer) Est GFR (Non-Af Amer) POC Glucose (mg/dL) Random Glucose Calcium Phosphorus Magnesium Total Bilirubin AST ALT Alkaline Phosphatase Total Creatine Kinase CK-MB (Mass) Troponin I NT-Pro-B Natriuret Pep Total Protein Albumin Globulin Albumin/Globulin Ratio Digoxin < 0.4 L - EKG Data EKG Interpreted by: Myself Assessment & Plan - Assessment and Plan (Free Text) Assessment: 38 year old transgender chest pain, HTN, hypergylemia, missed HD > EKG: NSR, LVH with strain pattern > Aflutter 2:1 with tachycardia ESRD on HD to help correct and maintain lytes and fluid balance PVD severe s/p bilateral BKA's, DM is labile and brittle on insulin HTN is chronic and labile on coreg, added norvasc 10, may need hydralazine if SBP remains elevated Atrial flutter/fibrillaiton > suggest eliquis 5mg po BID for CVA prophylaxsis and for prior intracardiac thrombus, continue amiodarone 200 daily for rhythm control/maintainence Angina s/p CABG now with failed grafts and multiple PCI now non revascularizable, ranexa and imdur for chronic stable angina, ASA and eliquis (avoid triple therapy to reduce GI bleeding risk) - Date & Time Date: 11/21/18 Time: 10:47
[2018-11-21] MEDS: Multivitamin Vitamin B Complex (Nephro-Vite) Tab PO SCH (11:24)
[2018-11-21] MEDS: Insulin Detemir 100 units/ml Vial (Levemir) SC SCH ×2 (11:26→22:15)
--- NOTE | 2018-11-21 14:07 | CP.PCM.PN ---
Subjective - Date & Time of Evaluation Date of Evaluation: 11/21/18 Time of Evaluation: 14:06 - Subjective Subjective: Nephrology Consultation Note: Assessment:stable Pulmonary congestion, fluid overload, HTN urgency, missed HD acute on chronic chest pain, hx of A flutter Diabetic chronic Kidney Disease (E11.22) Hypertensive Chronic Kidney Disease (I12.0) End stage renal disease (N18.6) dependence on hemodialysis (Z99.2) (TTS) via AVF Anemia (D64.9), Hyperphosphatemia (E83.39), Secondary Hyperparathyroidism (E21.1), HTN (I12.0) CAD s/p CABG, diastolic CHF, parox A flutter/fib, intra-cardiac thrombus, hx of Heparin induced thrombocytopenia, hx of seizure, blindness Plan: plan for dialysis as per TTS schedule Continue with Nephrovite 1 tab/day. Not on on HANNAH with HD . PRBC As needed for anemia, last Hb 13 Continue with phos binders home dose; renvela. BP control with meds as ordered. BP high initially at admission but goes low on subsequent days Glycemic control, Dialysis consistent diet Further work up/management as per primary team Dose meds/antibiotics for ESRD status. Avoid fleets enema/magnesium based laxatives. cardiology following Thanks for allowing me to participate in care of your patient. Will follow patient with you. Please call if any Qs. had d/w team Dr Eric Temple Office: [phone] CC: SOB and chest pain reason for consult: ESRD HPI: Pt is a 38 y/o transgender with hx of ESRD on hemodialysis (TTS) via permacath, chronic anemia, hyperphosphatemia, secondary hyperparathyroidism, Diabetes Mellitus, hypertension, CAD s/p CABG, diastolic CHF, pA flutter/fib, intra-cardiac thrombus, Heparin induced thrombocytopenia in past presented with complaints of SOB and acute on chronic chest pain x today. pt with recurrent and frequent hospitalizations for same complaints. he had missed hD on saturday. last HD sat ROS: All other negative except as in HPI. has chronic chest pain, says SOB +but better. Physical Examination: General Appearance: co-operative. comfortable no acute distress Head; Atraumatic, normocephalic ENT: no ulcers no thrush. Tongue is midline. Oropharynx: no rash or ulcers. EYES: Pt is blind both eyes Neck; supple no lymphadenopathy, no thyromegaly or bruit Lungs: Improved respiratory rate/effort. Breath sounds bilateral clearer Heart: Normal rate. s1s2 normal. No rub or gallop. Extremities: no edema. No varicose veins. has b/l BKA. Neurological: Patient is awake follow commands no focal deficit Skin: Warm and dry. Normal turgor. No rash. Palpitation: Normal elasticity for age Abdomen: Abdomen is soft. Bowel sounds +. There is no abdominal tenderness, no guarding/rigidity or organomegaly Psych: limited insight and has normal affect/mood MSK: no joint tenderness or swelling. Digits and nails normal, no deformity : kidney or bladder not palpable Access: permacath Labs/imaging reviewed. Past medical history, past surgical history, family history, social history, allergy reviewed and noted as below Family Hx: no hx of CKD. Non contributory Objective - Vital Signs/Intake and Output Vital Signs (last 24 hours): Temp Pulse Resp BP Pulse Ox 98.0 F 80 18 137/109 H 100 11/21/18 07:00 11/21/18 07:00 11/21/18 07:00 11/21/18 11:25 11/21/18 07:00 - Medications Medications: Current Medications Albuterol/Ipratropium (Duoneb 3 Mg/0.5 Mg (3 Ml) Ud) 3 ml IH RQ4 [facility] Last Admin: 11/21/18 03:56 Dose: 3 ml Amlodipine Besylate (Norvasc) 10 mg PO DAILY [facility] Carvedilol (Coreg) 25 mg PO BID [facility] Last Admin: 11/21/18 11:25 Dose: 25 mg Cinacalcet (Sensipar) 30 mg PO DAILY [facility] Last Admin: 11/21/18 11:26 Dose: 30 mg Clonidine HCl (Catapres) 0.2 mg PO TID [facility] Last Admin: 11/21/18 11:25 Dose: 0.2 mg Insulin Detemir (Levemir) 10 unit SC [facility]HS [facility] Last Admin: 11/21/18 11:26 Dose: 10 units Montelukast Sodium (Singulair) 10 mg PO DAILY [facility] Last Admin: 11/21/18 11:26 Dose: 10 mg Ondansetron HCl (Zofran Inj) 4 mg IVP Q6 [facility] Sevelamer Carbonate (Renvela) 800 mg PO TIDCC [facility] Last Admin: 11/21/18 13:53 Dose: 800 mg Tramadol HCl (Ultram) 50 mg PO BID PRN PRN Reason: pain Last Admin: 11/21/18 13:54 Dose: 50 mg Vitamin B Complex/Vit C/Folic Acid (Nephro-Courtney) 1 tab PO DAILY [facility] Last Admin: 11/21/18 11:24 Dose: 1 tab - Labs Labs: 11/21/18 06:25 11/21/18 06:20 PT 13.3 SECONDS (9.7-12.2) H 11/20/18 13:13 INR 1.2 11/20/18 13:13 APTT 37 SECONDS (21-34) H 11/20/18 13:13
[2018-11-21 22:08] LABS: CK-MB 1.19 ng/mL (0.0-3.38); TROPONIN I 0.289 ng/mL (0.00-0.120)
[2018-11-21] MEDS ORDERED: Calcium Carbonate 500 mg Chewable Antacid Tab PO STA (23:23)
--- NOTE | 2018-11-22 04:17 | CON ---
DATE: 11/21/2018 PSYCHIATRIC CONSULTATION CHIEF COMPLAINT AND REASON FOR CONSULTATION: The patient is referred by Dr. Li for evaluation and co-management of depression and anxiety. HISTORY OF PRESENT ILLNESS: This is a case of a 38-year-old male who was known to me for many years. The patient has history of end-stage renal disease, on dialysis; CHF; COPD; CVA and hypertension. The patient was brought in for chest pain as well as the patient has history of missing his dialysis treatment. The patient was referred for co-management. The patient is complaining of increasing anxiety and asking for some antianxiety pills. The patient was given Xanax, before he used to take Zoloft, but the patient has been not taking Zoloft because he is taking tramadol at home to avoid serotonin syndrome. The patient used to be dependent on narcotic for many years. The patient had rapid response when he was taking too much narcotics, and now he is afraid to take any narcotics. He just wants to take tramadol. Today, he was asking he can have tramadol as well as Xanax which he takes twice a day at home to help him with his anxiety. PAST PSYCHIATRIC HISTORY: History of depression as well as history of anxiety and drug-induced delirium. PAST MEDICAL HISTORY: History of CHF, COPD, end-stage renal disease, CVA, hypertension, hypercholesteremia. The patient is bilateral bka amputee. DRUG AND ALCOHOL HISTORY: He was dependent before pain medication. No history of alcohol or drug use. PSYCHOSOCIAL HISTORY: The patient lives with his father. His mother passed many years ago. His family used to take care of him. REVIEW OF SYSTEMS: The patient is alert and oriented x3, very well, calm, cooperative. Today, he said he does want narcotics, and he also wants tramadol and wants something for anxiety. PHYSICAL EXAMINATION: VITAL SIGNS: Temperature 98, pulse 80, blood pressure 137/109, respirations 20, and oxygen saturation is 100%. SKIN: No diaphoresis. HEENT: He is legally blind. No headache. NECK: Supple. RESPIRATORY: No dyspnea. CARDIOVASCULAR: No chest pain. GASTROINTESTINAL: He is eating well. EXTREMITIES: The patient is bilateral amputee, history of bilateral BKA. The patient is complaining of chronic pain in his lower extremities. NEUROLOGIC: Alert and oriented x3. GENITOURINARY: No urinary problems. MUSCULOSKELETAL: Feels weak. The patient when seen today is not complaining chest pain and is asking for Xanax to be given for his anxiety. MENTAL STATUS EXAMINATION: A well-developed male who looks stated age. He is anxious today but more cooperative, not demanding for pain medications. Speech spontaneous. Affect is reactive. Mood is anxious. Thought process, coherent. Thought content, no psychosis. As stated, the patient had taken Xanax in the past which helped him a lot. He is being cooperative with dialysis. No psychosis. No suicidal or homicidal ideation. The patient has history of when he was taking too much Dilaudid, the patient was seeing tigers in the hospital. Attention and memory seem to be fair. Insight and judgment are fair. Impulse control is fair. IMPRESSION: History of depression, anxiety as well as history of drug-induced delirium, end-stage renal disease, on dialysis as well as the patient has history of congestive heart failure and cerebrovascular accident. PLAN AND RECOMMENDATION: The patient is seen, meds reviewed. We will put the patient on Xanax 1 mg in the morning and at night. We will continue the tramadol and keep the patient off Zoloft to avoid serotonin syndrome side effect if taken together Zoloft and tramadol, and we will take the patient off narcotics for now. Continue dialysis as ordered. Dale Joseph MD MTDRobert
[2018-11-22 05:23] LABS: CK-MB 2.04 ng/mL (0.0-3.38); TROPONIN I 0.391 ng/mL (0.00-0.120)
--- NOTE | 2018-11-22 09:56 | CP.PCM.PN ---
Subjective - Date & Time of Evaluation Date of Evaluation: 11/22/18 Time of Evaluation: 09:53 - Subjective Subjective: pt feels beter no pain no vomting was anxious seen by dr samuels xanax feels beter Objective - Vital Signs/Intake and Output Vital Signs (last 24 hours): Temp Pulse Resp BP Pulse Ox 97.3 F L 60 20 108/60 100 11/22/18 07:00 11/22/18 07:00 11/22/18 07:00 11/22/18 07:00 11/22/18 07:00 - Medications Medications: Current Medications Albuterol/Ipratropium (Duoneb 3 Mg/0.5 Mg (3 Ml) Ud) 3 ml IH RQ4 [facility] Last Admin: 11/21/18 03:56 Dose: 3 ml Alprazolam (Xanax) 1 mg PO Q12 [facility] Last Admin: 11/21/18 22:14 Dose: 1 mg Amlodipine Besylate (Norvasc) 10 mg PO DAILY [facility] Carvedilol (Coreg) 25 mg PO BID [facility] Last Admin: 11/21/18 17:07 Dose: 25 mg Cinacalcet (Sensipar) 30 mg PO DAILY [facility] Last Admin: 11/21/18 11:26 Dose: 30 mg Clonidine HCl (Catapres) 0.2 mg PO TID [facility] Last Admin: 11/21/18 17:07 Dose: 0.2 mg Insulin Detemir (Levemir) 10 unit SC AMHS [facility] Last Admin: 11/21/18 22:15 Dose: 10 units Levothyroxine Sodium (Synthroid) 50 mcg PO DAILY@0630 [facility] Montelukast Sodium (Singulair) 10 mg PO DAILY [facility] Last Admin: 11/21/18 11:26 Dose: 10 mg Ondansetron HCl (Zofran Inj) 4 mg IVP Q6 [facility] Last Admin: 11/22/18 06:12 Dose: Not Given Sevelamer Carbonate (Renvela) 800 mg PO TIDCC [facility] Last Admin: 11/21/18 17:07 Dose: 800 mg Tramadol HCl (Ultram) 50 mg PO BID PRN PRN Reason: pain Last Admin: 11/21/18 13:54 Dose: 50 mg Vitamin B Complex/Vit C/Folic Acid (Nephro-Courtney) 1 tab PO DAILY [facility] Last Admin: 11/21/18 11:24 Dose: 1 tab - Labs Labs: 11/21/18 06:25 11/21/18 06:20 PT 13.3 SECONDS (9.7-12.2) H 11/20/18 13:13 INR 1.2 11/20/18 13:13 APTT 37 SECONDS (21-34) H 11/20/18 13:13 - Constitutional Appears: Non-toxic - Head Exam Head Exam: ATRAUMATIC - Eye Exam Additional comments: blind - ENT Exam ENT Exam: Normal Oropharynx - Neck Exam Neck Exam: Full ROM - Respiratory Exam Respiratory Exam: NORMAL BREATHING PATTERN - Cardiovascular Exam Cardiovascular Exam: REGULAR RHYTHM, +S1, +S2, Murmur - GI/Abdominal Exam GI & Abdominal Exam: Normal Bowel Sounds - Back Exam Back Exam: NORMAL INSPECTION - Neurological Exam Neurological Exam: Awake, Oriented x3 Additional comments: bilateral amputation - Psychiatric Exam Psychiatric exam: Normal Affect - Skin Skin Exam: Pallor Assessment and Plan - Assessment and Plan (Free Text) Assessment: chf esrf dmid seizer aneamia klinfilter cad stable Plan: will discharge home with med and home servsce after dialysis today
[2018-11-22] MEDS: Insulin Detemir 100 units/ml Vial (Levemir) SC SCH (10:42)
[2018-11-22] MEDS: Multivitamin Vitamin B Complex (Nephro-Vite) Tab PO SCH (12:51)
--- NOTE | 2018-11-22 12:54 | PCM.HF ---
Heart Failure Core Measure Beta-Andrew Prescribed: Carvedilol
--- NOTE | 2018-11-22 12:56 | CP.PCM.PN ---
Subjective - Date & Time of Evaluation Date of Evaluation: 11/22/18 Time of Evaluation: 12:55 - Subjective Subjective: Nephrology Consultation Note: Assessment:stable Pulmonary congestion, fluid overload, HTN urgency, missed HD acute on chronic chest pain, hx of A flutter Diabetic chronic Kidney Disease (E11.22) Hypertensive Chronic Kidney Disease (I12.0) End stage renal disease (N18.6) dependence on hemodialysis (Z99.2) (TTS) via AVF Anemia (D64.9), Hyperphosphatemia (E83.39), Secondary Hyperparathyroidism (E21.1), HTN (I12.0) CAD s/p CABG, diastolic CHF, parox A flutter/fib, intra-cardiac thrombus, hx of Heparin induced thrombocytopenia, hx of seizure, blindness Plan: TTS HD Continue with Nephrovite 1 tab/day. aaron on hold hgb ok Continue with phos binders home dose; renvela. monitor bp Glycemic control, Dialysis consistent diet Further work up/management as per primary team Dose meds/antibiotics for ESRD status. Avoid fleets enema/magnesium based laxatives. s: seen and examined denies sob or cp Physical Examination: General Appearance: co-operative. comfortable no acute distress Head; Atraumatic, normocephalic ENT: no ulcers no thrush. Tongue is midline. Oropharynx: no rash or ulcers. EYES: Pt is blind both eyes Neck; supple no lymphadenopathy, no thyromegaly or bruit Lungs: Improved respiratory rate/effort. Breath sounds bilateral clearer Heart: Normal rate. s1s2 normal. No rub or gallop. Extremities: no edema. No varicose veins. has b/l BKA. Neurological: Patient is awake follow commands no focal deficit Skin: Warm and dry. Normal turgor. No rash. Palpitation: Normal elasticity for age Abdomen: Abdomen is soft. Bowel sounds +. There is no abdominal tenderness, no guarding/rigidity or organomegaly Psych: limited insight and has normal affect/mood MSK: no joint tenderness or swelling. Digits and nails normal, no deformity : kidney or bladder not palpable Access: permacath Labs/imaging reviewed. Past medical history, past surgical history, family history, social history, allergy reviewed and noted as below Family Hx: no hx of CKD. Non contributory Objective - Vital Signs/Intake and Output Vital Signs (last 24 hours): Temp Pulse Resp BP Pulse Ox 97.3 F L 68 20 108/60 100 11/22/18 07:00 11/22/18 08:00 11/22/18 07:00 11/22/18 07:00 11/22/18 07:00 - Medications Medications: Current Medications Albuterol/Ipratropium (Duoneb 3 Mg/0.5 Mg (3 Ml) Ud) 3 ml IH RQ4 [facility] Last Admin: 11/21/18 03:56 Dose: 3 ml Alprazolam (Xanax) 0.5 mg PO BID PRN PRN Reason: Anxiety Amlodipine Besylate (Norvasc) 10 mg PO DAILY [facility] Carvedilol (Coreg) 25 mg PO BID [facility] Last Admin: 11/22/18 10:38 Dose: Not Given Cinacalcet (Sensipar) 30 mg PO DAILY [facility] Last Admin: 11/22/18 10:45 Dose: 30 mg Clonidine HCl (Catapres) 0.2 mg PO TID [facility] Last Admin: 11/22/18 10:38 Dose: Not Given Insulin Detemir (Levemir) 10 unit SC AMHS [facility] Last Admin: 11/22/18 10:42 Dose: 10 units Levothyroxine Sodium (Synthroid) 50 mcg PO DAILY@0630 [facility] Montelukast Sodium (Singulair) 10 mg PO DAILY [facility] Last Admin: 11/22/18 10:53 Dose: 10 mg Ondansetron HCl (Zofran Inj) 4 mg IVP Q6 [facility] Last Admin: 11/22/18 06:12 Dose: Not Given Sevelamer Carbonate (Renvela) 800 mg PO TIDCC [facility] Last Admin: 11/22/18 12:47 Dose: 800 mg Tramadol HCl (Ultram) 50 mg PO BID PRN PRN Reason: pain Last Admin: 11/21/18 13:54 Dose: 50 mg Vitamin B Complex/Vit C/Folic Acid (Nephro-Courtney) 1 tab PO DAILY [facility] Last Admin: 11/22/18 12:51 Dose: 1 tab - Labs Labs: 11/21/18 06:25 11/21/18 06:20 PT 13.3 SECONDS (9.7-12.2) H 11/20/18 13:13 INR 1.2 11/20/18 13:13 APTT 37 SECONDS (21-34) H 11/20/18 13:13
--- NOTE | 2018-11-22 15:45 | CP.PCM.PN ---
Subjective - Date & Time of Evaluation Date of Evaluation: 11/22/18 Time of Evaluation: 08:30 - Subjective Subjective: Events reviewed. Objective - Vital Signs/Intake and Output Vital Signs (last 24 hours): Temp Pulse Resp BP Pulse Ox 97.3 F L 68 20 108/60 100 11/22/18 07:00 11/22/18 08:00 11/22/18 07:00 11/22/18 07:00 11/22/18 07:00 - Medications Medications: Current Medications Albuterol/Ipratropium (Duoneb 3 Mg/0.5 Mg (3 Ml) Ud) 3 ml IH RQ4 [facility] Last Admin: 11/21/18 03:56 Dose: 3 ml Alprazolam (Xanax) 0.5 mg PO BID PRN PRN Reason: Anxiety Amlodipine Besylate (Norvasc) 10 mg PO DAILY [facility] Carvedilol (Coreg) 25 mg PO BID [facility] Last Admin: 11/22/18 10:38 Dose: Not Given Cinacalcet (Sensipar) 30 mg PO DAILY [facility] Last Admin: 11/22/18 10:45 Dose: 30 mg Clonidine HCl (Catapres) 0.2 mg PO TID [facility] Last Admin: 11/22/18 13:55 Dose: Not Given Insulin Detemir (Levemir) 10 unit SC AMHS [facility] Last Admin: 11/22/18 10:42 Dose: 10 units Levothyroxine Sodium (Synthroid) 50 mcg PO DAILY@0630 [facility] Montelukast Sodium (Singulair) 10 mg PO DAILY [facility] Last Admin: 11/22/18 10:53 Dose: 10 mg Ondansetron HCl (Zofran Inj) 4 mg IVP Q6 [facility] Last Admin: 11/22/18 12:00 Dose: Not Given Sevelamer Carbonate (Renvela) 800 mg PO TIDCC [facility] Last Admin: 11/22/18 12:47 Dose: 800 mg Tramadol HCl (Ultram) 50 mg PO BID PRN PRN Reason: pain Last Admin: 11/21/18 13:54 Dose: 50 mg Vitamin B Complex/Vit C/Folic Acid (Nephro-Courtney) 1 tab PO DAILY [facility] Last Admin: 11/22/18 12:51 Dose: 1 tab - Labs Labs: 11/21/18 06:25 11/21/18 06:20 PT 13.3 SECONDS (9.7-12.2) H 11/20/18 13:13 INR 1.2 11/20/18 13:13 APTT 37 SECONDS (21-34) H 11/20/18 13:13 Assessment and Plan - Assessment and Plan (Free Text) Assessment: Physical Exam - Constitutional Appears: Chronically Ill - Head Exam Head Exam: ATRAUMATIC, NORMAL INSPECTION, NORMOCEPHALIC - Eye Exam Eye Exam: absent: Normal appearance (legally blind), Scleral icterus - ENT Exam ENT Exam: Mucous Membranes Moist, Normal Oropharynx - Neck Exam Neck exam: Positive for: Normal Inspection - Respiratory Exam Respiratory Exam: Rhonchi. absent: Rales - Cardiovascular Exam Cardiovascular Exam: Tachycardia, REGULAR RHYTHM - GI/Abdominal Exam GI & Abdominal Exam: Soft. absent: Tenderness - Skin Skin Exam: Normal Color (B/L BKA) - EKG Data EKG Interpreted by: Myself Assessment & Plan - Assessment and Plan (Free Text) Assessment: 38 year old transgender chest pain, HTN, hypergylemia, missed HD > EKG: NSR, LVH with strain pattern > Aflutter 2:1 with tachycardia ESRD on HD to help correct and maintain lytes and fluid balance PVD severe s/p bilateral BKA's, DM is labile and brittle on insulin HTN is chronic and labile on coreg, added norvasc 10, may need hydralazine if SBP remains elevated Atrial flutter/fibrillaiton > suggest eliquis 5mg po BID for CVA prophylaxsis and for prior intracardiac thrombus, continue amiodarone 200 daily for rhythm control/maintainence Angina s/p CABG now with failed grafts and multiple PCI now non revascularizabl e, ranexa and imdur for chronic stable angina, ASA and eliquis (avoid triple therapy to reduce GI bleeding risk)
--- NOTE | 2018-11-22 17:15 | CP.PCM.PN ---
Subjective - Date & Time of Evaluation Date of Evaluation: 11/22/18 Time of Evaluation: 11:00 - Subjective Subjective: alert, awake, denies sob or chest pains, NAD. Objective - Vital Signs/Intake and Output Vital Signs (last 24 hours): Temp Pulse Resp BP Pulse Ox 97.3 F L 68 20 108/60 100 11/22/18 07:00 11/22/18 08:00 11/22/18 07:00 11/22/18 07:00 11/22/18 07:00 - Medications Medications: Current Medications Albuterol/Ipratropium (Duoneb 3 Mg/0.5 Mg (3 Ml) Ud) 3 ml IH RQ4 [facility] Last Admin: 11/21/18 03:56 Dose: 3 ml Alprazolam (Xanax) 0.25 mg PO BID PRN PRN Reason: Anxiety Amlodipine Besylate (Norvasc) 10 mg PO DAILY [facility] Carvedilol (Coreg) 25 mg PO BID [facility] Last Admin: 11/22/18 10:38 Dose: Not Given Cinacalcet (Sensipar) 30 mg PO DAILY [facility] Last Admin: 11/22/18 10:45 Dose: 30 mg Clonidine HCl (Catapres) 0.2 mg PO TID [facility] Last Admin: 11/22/18 13:55 Dose: Not Given Insulin Detemir (Levemir) 10 unit SC AMHS [facility] Last Admin: 11/22/18 10:42 Dose: 10 units Levothyroxine Sodium (Synthroid) 50 mcg PO DAILY@0630 [facility] Montelukast Sodium (Singulair) 10 mg PO DAILY [facility] Last Admin: 11/22/18 10:53 Dose: 10 mg Ondansetron HCl (Zofran Inj) 4 mg IVP Q6 [facility] Last Admin: 11/22/18 12:00 Dose: Not Given Sevelamer Carbonate (Renvela) 800 mg PO TIDCC [facility] Last Admin: 11/22/18 12:47 Dose: 800 mg Tramadol HCl (Ultram) 50 mg PO BID PRN PRN Reason: pain Last Admin: 11/21/18 13:54 Dose: 50 mg Vitamin B Complex/Vit C/Folic Acid (Nephro-Courtney) 1 tab PO DAILY [facility] Last Admin: 11/22/18 12:51 Dose: 1 tab - Labs Labs: 11/21/18 06:25 11/21/18 06:20 PT 13.3 SECONDS (9.7-12.2) H 11/20/18 13:13 INR 1.2 11/20/18 13:13 APTT 37 SECONDS (21-34) H 11/20/18 13:13 Assessment and Plan - Assessment and Plan (Free Text) Assessment: 38 Year old male with ESRD, CHF, admitted with chest pain, seen and examined. Alert, awake, denies sob or chest pains. Discussed with DR Li, plan to discharge home on xanax prn for anxiety. Transportation arranged.
[2018-11-22 17:26] VITALS: RESP 18; TEMP 98; O2SAT 98
[2018-11-22 18:38] VITALS: PULSE 74
[2018-11-22 20:01] VITALS: BP 98/56
--- NOTE | 2018-11-22 20:33 | PN ---
DATE: 11/22/2018 SUBJECTIVE: The patient is seen. The patient, according to the nurse for discharge today, is much calmer. The patient is currently taking Xanax 0.5 mg twice a day p.r.n. and tramadol 50 mg p.o. b.i.d. p.r.n. He said he wants to go home after dialysis. REVIEW OF SYSTEMS: The patient is seen in his room, alert and oriented x3, pleasant and cooperative. PHYSICAL EXAMINATION: VITAL SIGNS: Temperature 97.3, pulse rate 68, blood pressure 108/60, respirations 20, and oxygen saturation 100%. SKIN: No diaphoresis. HEENT: He is legally blind. No headache. NECK: Supple. RESPIRATORY: No dyspnea. CARDIOVASCULAR: No chest pain. GASTROINTESTINAL: He is eating. EXTREMITIES: The patient is a bilateral amputee. He is status post bilateral BKA, still has chronic pain in his lower extremities. NEUROLOGIC: Alert and oriented x3. GENITOURINARY: No urinary problems. MENTAL STATUS EXAMINATION: Well-developed male, looks stated age, who is a bilateral amputee. Oriented x3. Speech is spontaneous. Affect reactive. Mood is calm. The patient wants to go home, said the medicines are helping him. The patient is now refusing to take narcotics. He only wants to take tramadol because they were helping to him before. No suicidal or homicidal ideation or psychosis. Attention and memory seemed to be fair. Insight and judgment fair. Impulse control is fair. IMPRESSION: History of depression; anxiety and drug-induced delirium; end-stage renal disease, dialysis; coronary artery disease; chest pain, currently resolved. PLAN AND RECOMMENDATION: The patient is seen, meds reviewed. The patient may go home psych-bowens today to continue his tramadol p.r.n. as well as the Xanax 0.5 mg p.o. b.i.d. p.r.n. Dale Joseph MD
[2018-11-23] MEDS ORDERED: Levothyroxine 50 MCG TAB PO SCH (06:30)
--- NOTE | 2018-11-23 20:13 | CARD ---
APPROVED REPORT Date of service: 11/20/2018 EKG Measurement Heart [id number] <Conclusion> Normal sinus rhythm Left ventricular hypertrophy with QRS widening and repolarization abnormality Abnormal ECG
== END 2018-11-22 23:37 | disposition home or self-care (01) | DRG 544 ==
LOC: C.ER 12:23 → C.9E 14:27 → C.6T 19:20
PROVIDERS: ADMIT Internal Medicine; ATTEND Internal Medicine
DX: I13.2 Hypertensive heart and chronic kidney disease with heart failure and with stage 5 chronic kidney disease, or end stage renal disease (principal); I50.32 Chronic diastolic (congestive) heart failure; E11.22 Type 2 diabetes mellitus with diabetic chronic kidney disease; N18.6 End stage renal disease; J44.9 Chronic obstructive pulmonary disease, unspecified; I25.119 Atherosclerotic heart disease of native coronary artery with unspecified angina pectoris; D64.9 Anemia, unspecified; I48.91 Unspecified atrial fibrillation; G30.9 Alzheimer's disease, unspecified; E03.9 Hypothyroidism, unspecified; F32.9 Major depressive disorder, single episode, unspecified; Z89.512 Acquired absence of left leg below knee; E78.00 Pure hypercholesterolemia, unspecified; E83.39 Other disorders of phosphorus metabolism; H54.7 Unspecified visual loss; Z99.2 Dependence on renal dialysis; Z86.73 Personal history of transient ischemic attack (TIA), and cerebral infarction without residual deficits; Z79.4 Long term (current) use of insulin; F64.9 Gender identity disorder, unspecified; Z89.511 Acquired absence of right leg below knee

== ENCOUNTER 2018-12-27 06:20 | Observation (INO) | payer OTHER ==
[2018-12-27 06:20] VITALS: PULSE 110; BMI 20.7
--- NOTE | 2018-12-27 07:05 | C.PDOC ---
History Of Present Illness 38 y/o male with esrd, on hd, //sa, cad, mi, htn. dm, bilateral bka, pe, asthma, c/o sob that woke him from sleep at 3 am; pt took three albuterol nebulizer treatments and used mdi 2 times without relief. pt sts left sided pressure like cp started at 4 am and has been persistent since. pt took 81 mg asa. Time Seen by Provider: 12/27/18 07:02 Chief Complaint (Nursing): Shortness Of Breath History Per: Patient History/Exam Limitations: no limitations Onset/Duration Of Symptoms: Hrs (4) Current Symptoms Are (Timing): Still Present Quality: Pressure Current Respiratory Medications: Albuterol Associated Symptoms: Chest Pain. denies: Fever Reports Recently: Hospitalized (October 2018) Past Medical History Reviewed: Historical Data, Nursing Documentation, Vital Signs Vital Signs: Last Vital Signs Temp 97.7 F 12/27/18 06:35 Pulse 118 H 12/27/18 06:35 Resp 18 12/27/18 06:42 BP 194/97 H 12/27/18 06:35 Pulse Ox 100 12/27/18 06:42 - Medical History PMH: Alzheimer's Disease, Anemia, Anxiety, Arthritis, Asthma, Atrial Fibrillation, Bronchitis, CAD, Cardia Arrhythmia, CHF, COPD, CVA, Depression, Diabetes, Deep Vein Thrombosis, Gastritis, Gastrointestinal Ulcer, Gall Bladder Disease, HTN, Hypercholesterolemia, Hypothyroidism, Kidney Stones, Pneumonia, Pulmonary Embolism, End Stage Renal Disease, Chronic Kidney Disease, Seizures Denies: Hyperthyroidism, Sexually Transmitted Disease Surgical History: CABG (12/2009), Cholecystectomy (2011), Coronary Stent Other Surgeries: dialysis catheter - [facility] Procedures (09/17/18) ABDOMINAL WALL SINOGRAM (12/31/13) ASSISTANCE WITH RESPIRATORY VENTILATION, 24-96 HRS, CPAP (05/31/18) C.A.T. SCAN OF ABDOMEN (10/31/13) CENTRAL VENOUS CATHETER PLACEMENT WITH GUIDANCE (02/10/15) CHANGE OTHER DEVICE IN TRUNK SUBCU/FASCIA, SETTER HELPER APPROACH (06/01/17) DILATE R ANT TIB ART W DRUG-ELUT INTRALUM, PERC (08/12/15) DILATION OF LEFT FEMORAL ARTERY, PERCUTANEOUS APPROACH (07/04/16) DILATION OF RIGHT FEMORAL ARTERY, PERCUTANEOUS APPROACH (08/12/15) DILATION OF RIGHT POPLITEAL ARTERY, PERCUTANEOUS APPROACH (08/12/15) DX ULTRASOUND-HEART (01/05/13) ENTERAL INFUSION OF CONCENTRATED NUT. SUBSTANCES (06/28/13) EXCIS DEBRIDE OF WOUND, INFECT, OR BURN (08/03/14) EXCISION OF STOMACH, ENDO, DIAGN (03/03/17) EXTIRPATION OF MATTER FROM L FEM ART, PERC APPROACH (07/04/16) EXTIRPATION OF MATTER FROM R FEM ART, PERC APPROACH (08/12/15) EXTIRPATION OF MATTER FROM R POPL ART, PERC APPROACH (08/12/15) FLUOROSCOPY OF L LOW EXTREM ART USING L OSM CONTRAST (08/12/15) FLUOROSCOPY OF R LOW EXTREM ART USING L OSM CONTRAST (08/12/15) FLUOROSCOPY OF RIGHT JUGULAR VEINS, GUIDANCE (06/01/17) FREE SKIN GRAFT NEC (08/03/14) HEAD SOFT TISS X-RAY NEC (04/15/13) HEMODIALYSIS (04/28/15) INCIS W REM OF FORIEGN BODY OR DEV FROM SKIN & SUBCUT TISSUE (08/08/13) INSERT INFUSION DEV IN R INT JUGULAR VEIN, PERC (06/01/17) INSERTION OF INFUSION DEV INTO R SUBCLAV VEIN, PERC APPROACH (01/19/16) INSERTION OF INFUSION DEV INTO SUP VENA CAVA, PERC APPROACH (01/07/18) INSPECTION OF UPPER INTESTINAL TRACT, ENDO (03/03/17) INTRODUCE OF OTH THROMBOLYTIC INTO PERIPH ART, PERC APPROACH (08/12/15) LAPAROSCOPIC CHOLECYSTECTOMY (09/21/13) LOC EXC LES METATAR/TAR (06/01/14) PACKED CELL TRANSFUSION (06/01/14) PERCUTAN LIVER ASPIRAT (12/31/13) PERFORMANCE OF URINARY FILTRATION, MULTIPLE (05/17/17) PERFORMANCE OF URINARY FILTRATION, SINGLE (12/18/16) SKIN & SUBQ INCISION NEC (10/24/14) TETANUS TOXOID ADMINIST (06/13/14) TRANSFUSE NONAUT RED BLOOD CELLS IN PERIPH VEIN, PERC (04/09/17) ULTRASONOGRAPHY OF RIGHT AND LEFT HEART (04/09/17) ULTRASONOGRAPHY OF SUPERIOR VENA CAVA, GUIDANCE (01/07/18) VENOUS CATHETERIZATION FOR RENAL DIALYSIS (08/08/13) VENOUS CATHETERIZATION NEC (04/30/13) Family History: States: Unknown Family Hx - Social History Hx Tobacco Use: No Hx Alcohol Use: No Hx Substance Use: No - Immunization History Hx Tetanus Toxoid Vaccination: Yes Hx Influenza Vaccination: Yes Hx Pneumococcal Vaccination: Yes Review Of Systems Constitutional: Negative for: Fever, Chills Cardiovascular: Positive for: Chest Pain Respiratory: Positive for: Shortness of Breath. Negative for: Cough Gastrointestinal: Negative for: Vomiting, Abdominal Pain Skin: Negative for: Rash Neurological: Negative for: Weakness, Numbness Physical Exam - Physical Exam Appears: Non-toxic, Chronically Ill Skin: Warm, Dry Head: Atraumatic, Normacephalic Neck: Supple Chest: No Tenderness, Other (dialysis catheter right chest wall) Cardiovascular: Other (tachycardic, regular rhythm) Respiratory: No Decreased Breath Sounds, No Rales, No Rhonchi, No Wheezing Gastrointestinal/Abdominal: Bowel Sounds, Soft, No Tenderness, No Guarding, No Rebound Extremity: Other (bilateral bka) ED Course And Treatment - Laboratory Results Result Diagrams: 12/27/18 07:08 12/27/18 07:08 ECG: Interpreted By Me, Viewed By Me (and Dr Pérez) ECG Rhythm: Sinus Tachycardia ECG Interpretation: Abnormal Interpretation Of ECG: siinus tachycardia, st abnormalities, similar to EKG of 11/21/18 O2 Sat by Pulse Oximetry: 100 - Other Rad CXR X-Ray: Viewed By Me, Read By Radiologist Interpretation: FINDINGS: LUNGS: Clear. PLEURA: No pneumothorax or pleural fluid seen. CARDIOVASCULAR: No aortic atherosclerotic calcification present. Mild congestive change. Sternotomy wires. Right central venous dialysis catheter noted. OSSEOUS STRUCTURES: No significant abnormalities. VISUALIZED UPPER ABDOMEN: Normal. OTHER FINDINGS: None. IMPRESSION: Mild congestive change. No infiltrate. Medical Decision Making Medical Decision Making: pt with multiple medical problems with cp and sob, needs hd today. Renal Dr Galindo. eval for mi, chf. Initial Plan: -Novolin R -EKG -Blood sent. -CXR -Glucose, POC Progress/Update: 8:57am: Spoke with Dr. Stone. will admit to her service, julian james covering Dr Eugenie Li, consults ordered for cardiology and renal. [address] Hutton, renal, covering for Dr Galindo. Disposition Discussed With DrJulisa: Lucille Stone Doctor Will See Patient In The: Hospital - Disposition Disposition: HOSPITALIZED Disposition Time: 09:07 Condition: SERIOUS - Clinical Impression Clinical Impression: Dyspnea, Uncontrolled diabetes mellitus, Chest pain, rule out acute myocardial infarction, CKD (chronic kidney disease)
[2018-12-27 07:15] LABS: BASO # 0.1 K/uL (0.0-0.2); BASO % 0.6 % (0.0-2.0); EOS # 0.2 K/uL (0.0-0.7); EOS % 1.5 % (0.0-4.0); HEMOGLOBIN 11.6 g/dL (12.0-18.0); LYMPH # 1.7 K/uL (1.0-4.3); LYMPH % 16.4 % (20.0-40.0); MEAN CELL VOLUME 89.8 fL (80.0-94.0); MEAN CORPUSCULAR HEMOGLOBIN 28.4 pg (27.0-31.0); MEAN CORPUSCULAR HGB CONC 31.6 g/dL (33.0-37.0); MEAN PLATELET VOLUME 9.1 fL (7.2-11.7); MONO # 0.6 K/uL (0.0-0.8); MONO % 5.3 % (0.0-10.0); NEUT # 7.9 K/uL (1.8-7.0); NEUT % 76.2 % (50.0-75.0); RBC 4.1 Mil/uL (4.40-5.90); RED CELL DISTRIBUTION WIDTH 20.6 % (11.5-14.5); WHITE BLOOD COUNT 10.3 K/uL (4.8-10.8)
[2018-12-27 07:28] LABS: ALB/GLOB RATIO 1.2 (1.0-2.1); ALBUMIN 4.6 g/dL (3.5-5.0); ALT/SGPT < 6 U/L (21-72); AST/SGOT 27 U/L (17-59); BLOOD UREA NITROGEN 54 mg/dL (9-20); CALCIUM 9.9 mg/dl (8.6-10.4); GFR NON-AFRICAN AMERICAN 11
[2018-12-27] MEDS ORDERED: (Novolin R) Insulin Human Regular 100 units/ml vial SC ONE (07:31)
[2018-12-27 07:41] LABS: INR 1.1
[2018-12-27] MEDS ORDERED: (Novolin R) Insulin Human Regular 100 units/ml vial ONE (07:44)
[2018-12-27 08:57] LABS: B-TYPE NATRIURETIC PEPTIDE 39800 pg/mL (0-450)
[2018-12-27] MEDS ORDERED: Dextrose 50% SYRINGE Inj (50 ml) IV PRN (11:33)
[2018-12-27] MEDS ORDERED: Glucagon Recombinant 1 mg Inj IM PRN (11:33)
[2018-12-27] MEDS ORDERED: (Novolog) Insulin Aspart, Recombinant 100 u/ml 10 ml vial SC SCH (11:45)
[2018-12-27] MEDS ORDERED: (Lantus) Insulin Glargine, Recombinant SC ONE (11:45)
[2018-12-27] MEDS: (Novolog) Insulin Aspart, Recombinant 100 u/ml 10 ml vial SC SCH ×3 (11:50→21:38)
[2018-12-27] MEDS: Albuterol-Ipratrop 3 mg / 0.5 (3 ml) UD INH SCH ×2 (15:43→19:38)
--- NOTE | 2018-12-27 17:36 | RAD ---
Date of service: 12/27/2018 PROCEDURE: CHEST RADIOGRAPH, 1 VIEW HISTORY: chest pain COMPARISON: 11/20/2018 FINDINGS: LUNGS: Clear. PLEURA: No pneumothorax or pleural fluid seen. CARDIOVASCULAR: No aortic atherosclerotic calcification present. Mild congestive change. Sternotomy wires. Right central venous dialysis catheter noted. OSSEOUS STRUCTURES: No significant abnormalities. VISUALIZED UPPER ABDOMEN: Normal. OTHER FINDINGS: None. IMPRESSION: Mild congestive change. No infiltrate.
[2018-12-27] MEDS: (Lantus) Insulin Glargine, Recombinant SC SCH (21:38)
[2018-12-28] MEDS: Albuterol-Ipratrop 3 mg / 0.5 (3 ml) UD INH SCH ×7 (00:35→23:53)
[2018-12-28] MEDS: Levothyroxine 50 MCG TAB PO SCH (05:51)
--- NOTE | 2018-12-28 08:22 | CP.PCM.CON ---
History of Present Illness - History of Present Illness History of Present Illness: CC: Shorntess of breath HPI: 38 year old transgender with chronic medical problems 1. ESRD on HD 2. ASHD s/p CABG and post surgery PCI now with atretic MOLINA graft and failed vein grafts non revascularizable 3. DM brittle labile sugers 4. Paroxysmal atrial fibrillition on anticoagulation and Amiodarone for rhythm suppression 5. PVD s/p bilateral BKA Review of Systems - Review of Systems All systems: reviewed and no additional remarkable complaints except Review of Systems: Shortness of breath improved with HD. Past Patient History - Infectious Disease Hx of Infectious Diseases: None - Tetanus Immunizations Tetanus Immunization: >10 years Ago - Past Medical History & Family History Past Medical History?: Yes - Past Social History Smoking Status: Former Smoker - CARDIAC Hx Atrial Fibrillation: Yes Hx Cardia Arrhythmia: Yes Hx Congestive Heart Failure: Yes Hx Hypercholesterolemia: Yes Hx Hypertension: Yes - PULMONARY Hx Asthma: Yes Hx Bronchitis: Yes Hx Chronic Obstructive Pulmonary Disease (COPD): Yes Hx Pneumonia: Yes Hx Pulmonary Embolism: Yes - NEUROLOGICAL Hx Alzheimer's Disease: Yes Hx Seizures: Yes - HEENT Hx HEENT Problems: Yes Hx Blind: Yes Hx Cataracts: Yes - RENAL Hx Chronic Kidney Disease: Yes Hx Kidney Stones: Yes - ENDOCRINE/METABOLIC Hx Hyperthyroidism: No Hx Hypothyroidism: Yes - HEMATOLOGICAL/ONCOLOGICAL Hx Anemia: Yes - INTEGUMENTARY Hx Dermatological Problems: No - MUSCULOSKELETAL/RHEUMATOLOGICAL Hx Arthritis: Yes - GASTROINTESTINAL Hx Gall Bladder Disease: Yes Hx Gastritis: Yes - GENITOURINARY/GYNECOLOGICAL Hx Sexually Transmitted Disorders: No - PSYCHIATRIC Hx Anxiety: Yes Hx Depression: Yes Hx Substance Use: No - SURGICAL HISTORY Hx Cholecystectomy: Yes (2011) 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/2009) Hx Coronary Stent: Yes - ANESTHESIA Hx Anesthesia: Yes Hx Anesthesia Reactions: No Hx Malignant Hyperthermia: No Meds Allergies/Adverse Reactions: Allergies Allergy/AdvReac Type Severity Reaction Status Date / Time acetaminophen [From Percocet] Allergy RASH Verified 11/20/18 12:35 atenolol Allergy RASH Verified 11/20/18 12:35 digoxin Allergy RASH Verified 11/20/18 12:35 milk Allergy ITCHING Verified 11/20/18 12:35 morphine Allergy RASH Verified 11/20/18 12:35 oxycodone HCl [From Percocet] Allergy RASH Verified 11/20/18 12:35 eggs Allergy Uncoded 03/21/19 12:35 - Medications Medications: Current Medications Albuterol/Ipratropium (Duoneb 3 Mg/0.5 Mg (3 Ml) Ud) 3 ml INH RQ4 [facility] Last Admin: 12/28/18 00:35 Dose: Not Given Alprazolam (Xanax) 0.25 mg PO BID PRN PRN Reason: Anxiety Stop: 01/03/19 11:12 Carvedilol (Coreg) 25 mg PO BID [facility] Last Admin: 12/27/18 17:33 Dose: 25 mg Cinacalcet (Sensipar) 30 mg PO DAILY [facility] Clonidine HCl (Catapres) 0.2 mg PO TID [facility] Last Admin: 12/27/18 17:33 Dose: 0.2 mg Dextrose (Dextrose 50% Inj) 0 ml IV STAT PRN; Protocol PRN Reason: Hypoglycemia Protocol Dextrose (Glutose 15) 0 gm PO ONCE PRN; Protocol PRN Reason: Hypoglycemia Protocol Diphenhydramine HCl (Benadryl) 50 mg PO Q6 PRN PRN Reason: Itching / Pruritus Last Admin: 12/28/18 01:59 Dose: 50 mg Glucagon (Glucagen Diagnostic Kit) 0 mg IM STAT PRN; Protocol PRN Reason: Hypoglycemia Protocol Heparin Sodium (Porcine) (Heparin) 5,000 units SC Q8 [facility] Last Admin: 12/28/18 05:55 Dose: 5,000 units Dextrose (Dextrose 5% In Water 1000 Ml) 1,000 mls @ 0 mls/hr IV .Q0M PRN; Protocol PRN Reason: Hypoglycemia Protocol Insulin Aspart (Novolog) 0 unit SC ACHS [facility]; Protocol Last Admin: 12/27/18 21:38 Dose: 3 unit Insulin Glargine (Lantus) 10 unit SC HS [facility] Last Admin: 12/27/18 21:38 Dose: 10 unit Levothyroxine Sodium (Synthroid) 50 mcg PO DAILY@0630 [facility] Last Admin: 12/28/18 05:51 Dose: 50 mcg Montelukast Sodium (Singulair) 10 mg PO DAILY [facility] Tramadol HCl (Ultram) 50 mg PO BID PRN PRN Reason: pain Last Admin: 12/28/18 01:59 Dose: 50 mg Vitamin B Complex/Vit C/Folic Acid (Nephro-Courtney) 1 tab PO DAILY [facility] Physical Exam - Constitutional Appears: Non-toxic, Chronically Ill - Head Exam Additional comments: Wide facies, non traumatic - Eye Exam Eye Exam: absent: Scleral icterus Additional comments: Legal blindness - ENT Exam ENT Exam: Mucous Membranes Moist, Normal External Ear Exam - Neck Exam Neck exam: Positive for: Full Rom. Negative for: Thyromegaly - Respiratory Exam Respiratory Exam: Clear to Auscultation Bilateral, NORMAL BREATHING PATTERN - Cardiovascular Exam Cardiovascular Exam: REGULAR RHYTHM, +S1, +S2, Systolic Murmur. absent: JVD Additional comments: Bilateral BKA with skin breakdown over stumps - GI/Abdominal Exam GI & Abdominal Exam: Normal Bowel Sounds. absent: Organomegaly - Neurological Exam Neurological exam: CN II-XII Intact, Oriented x3 - Psychiatric Exam Psychiatric exam: Normal Mood Additional comments: Developmental delay Results - Vital Signs Recent Vital Signs: Last Vital Signs Temp 97.4 F L 12/27/18 23:00 Pulse 81 12/28/18 07:12 Resp 20 12/27/18 23:00 BP 109/70 12/27/18 23:00 Pulse Ox 100 12/28/18 03:00 - Labs Result Diagrams: 12/27/18 07:08 12/27/18 07:08 Labs: Laboratory Results - last 24 hr 12/27/18 12/27/18 12/27/18 07:08 08:57 11:19 POC Glucose (mg/dL) 458 H* 132 H NT-Pro-B Natriuret Pep 23676 H 12/27/18 12/27/18 12/28/18 16:27 21:29 01:56 POC Glucose (mg/dL) 80 365 H 105 NT-Pro-B Natriuret Pep 12/28/18 06:23 POC Glucose (mg/dL) 245 H NT-Pro-B Natriuret Pep - EKG Data EKG Interpreted by: Myself EKG shows normal: Sinus rhythm Rate: Tachycardia - Imaging and Cardiology Chest x-ray Status: Image reviewed by me Additional comment: No infiltrates or effusions, +Sternotomy wires, +Permacath Assessment & Plan - Assessment and Plan (Free Text) Assessment: 38 year old man with ERSD and shortness of breath improved with HD Coagulopathy with history of intra cardiac thrombus around permacath resume Eliquis 5mg po BID Atrial fibrillaiton/flutter resume amiodarone for rhythm control Chronic angina s/p CABG and multiple failed PCI disease is non revascularizable resume Ranexa 500 BID HTN is chronic and controlled on coreg, can titrate clonidine to Imdur as angina dictates DM is chronic and brittle insulin coverage, labile sugars.
[2018-12-28] MEDS: (Novolog) Insulin Aspart, Recombinant 100 u/ml 10 ml vial SC SCH ×4 (08:41→21:02)
[2018-12-28] MEDS: Multivitamin Vitamin B Complex (Nephro-Vite) Tab PO SCH (09:42)
--- NOTE | 2018-12-28 13:30 | PCM.RRT ---
<Yulia Basurto - Last Filed: 12/28/18 13:51> DELIVERY REPRESENTATIVE Nurses Assessment - Situation Date: 12/28/18 Time DELIVERY REPRESENTATIVE was called: 13:19 DELIVERY REPRESENTATIVE Responder Arrival Time:: 13:20 DELIVERY REPRESENTATIVE Location:: Med/Surg Room Number: 568-A DELIVERY REPRESENTATIVE Reason for Call: Chest Pain DELIVERY REPRESENTATIVE Called By: RN - IV IV Inserted during DELIVERY REPRESENTATIVE?: No - Respiratory DELIVERY REPRESENTATIVE Delivery Method: Nasal Cannula @L/min (2) Oxygen Flow Rate: 2 Received Nebulizer Treatments: No Was the Patient Ventilated with Bag/Mask 100% O2?: No Secretions Suctioned?: No Was the Patient Intubated?: No Was the Patient Placed on a Ventilator?: No - Medication Medications Administered During DELIVERY REPRESENTATIVE: Cardizem 5 mg IVP - Diagnostic Test Ordered EKG: Yes Chest X-Ray: Yes CT Scan: No CPR started during DELIVERY REPRESENTATIVE?: No - Vital Signs Vital Signs: BP 78/56 HR 145 spO2 100% on 2 L RR 16 - Carter Coma Scale Coma Scale Eye Opening: Spontaneous Coma Scale Motor: Obeys Commands Movement Coma Scale Verbal: Oriented Coma Scale Total: 15 - Time DELIVERY REPRESENTATIVE Ended Time DELIVERY REPRESENTATIVE Ended: 13:50 - Vital Signs at end of DELIVERY REPRESENTATIVE Vital Signs at end of DELIVERY REPRESENTATIVE: HR 75 BP 146/80 spO2 100% on 2L RR 12 - Recommendations 5) DELIVERY REPRESENTATIVE Level of Care Recommendations: Remain in current setting Notifications: Attending Physician I.Reason for DELIVERY REPRESENTATIVE - A) Acute Change in Patient: (Select all that apply): Acute change in heart rate less than 50 or greater than 120 Subjective: DELIVERY REPRESENTATIVE called for chest pain, palpitations, and tachycardia. Patient has multiple medical problems including brittle DM, ESRD on HD, PVD, and h/o SVT. Patient had her regular dialysis session yesterday. Stat EKG done, and patient found to be in SVT. Stat IV Cardizem given. Patient with symptomatic relief but still tachycardia in 130s. Second dose of Cardizem 5 mg IVP given. Patient's HR down to 90s. Called cardiology, Dr. Michaels, and received recs. - Neurological Status (Select all that apply): Alert, Responsive, Oriented, Verbal, Follows Commands - Respiratory Oxygen Delivery Method: Nasal Cannula @L/min (2) Oxygen Flow Rate: 2 - Constitutional Appears: No Acute Distress - Head Head Exam: ATRAUMATIC, NORMAL INSPECTION - Respiratory Exam Respiratory Exam: NORMAL BREATHING PATTERN. absent: Respiratory Distress - Cardiovascular Exam Cardiovascular Exam: Tachycardia - Neurological Exam Neurological Exam: Alert, Awake, Oriented x3 - Extremities Exam Additional comments: b/l BKA Plan - Assessment of Findings&Treatment Plan Patient is a 38 yo transgender M-->F with ESRD on HD, brittle DM, PVD s/p b/l BKA, asthma admitted for chest pain and SOB. DELIVERY REPRESENTATIVE called for chest pain and tachycardia. Patient found to be in SVT. Plan: - Stat EKG - Stat CXR - Stat Cardizem 5 mg IVP x2 - Called Dr. Michaels- maribel given - Patient has not been taking the appropriate medications as per cardio - Restart amiodarone 200 mg PO daily, Eliquis 2.5 mg PO BID (renal dose), Ranexa 500 mg PO BID - Taper clonidine - Restart Imdur when BP more stabilized <Lor Villagomez V - Last Filed: 12/31/18 05:51> DELIVERY REPRESENTATIVE Nurses Assessment - Vital Signs Vital Signs: Rapid Response Vital Sign Blood Pressure 78/56 Pulse Rate 145 Respiratory Rate 20 Oxygen Saturation 99 - Vital Signs at end of DELIVERY REPRESENTATIVE Vital Signs at end of DELIVERY REPRESENTATIVE: Rapid Response End Vital Sign Blood Pressure 121/73 Pulse Rate 75 Respiratory Rate 20 Temperature 97.8 F O2 Sat by Pulse Oximetry 100 Attending/Attestation - Attestation I have personally seen and examined this patient.: Yes I have fully participated in the care of the patient.: Yes I have reviewed all pertinent clinical information, including history, physical exam and plan: Yes
--- NOTE | 2018-12-28 15:35 | RAD ---
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 FINDINGS: LUNGS: No active pulmonary disease. PLEURA: No significant pleural effusion identified, no pneumothorax apparent. CARDIOVASCULAR: No aortic atherosclerotic calcification present. Normal cardiac size. Status post CABG. Sternotomy wires. Right central venous dialysis catheter. Congestive change noted. OSSEOUS STRUCTURES: No significant abnormalities. VISUALIZED UPPER ABDOMEN: Normal. OTHER FINDINGS: None. IMPRESSION: No acute infiltrate. Congestive change noted.
[2018-12-28] MEDS: Ranolazine 500 mg Extended Release Tablets PO SCH (17:13)
--- NOTE | 2018-12-28 17:18 | CP.PCM.PN ---
Subjective - Date & Time of Evaluation Date of Evaluation: 12/28/18 Time of Evaluation: 17:18 - Subjective Subjective: renal note patient in observation status for chest pain esrd tts schedule hd per schedule lytes reviewed Objective - Vital Signs/Intake and Output Vital Signs (last 24 hours): Temp Pulse Resp BP Pulse Ox 97.8 F 77 20 115/73 100 12/28/18 15:00 12/28/18 15:00 12/28/18 15:00 12/28/18 17:12 12/28/18 15:00 Intake and Output: 12/28/18 12/28/18 06:59 18:59 Intake Total 550 Balance 550 - Medications Medications: Current Medications Albuterol/Ipratropium (Duoneb 3 Mg/0.5 Mg (3 Ml) Ud) 3 ml INH RQ4 [facility] Last Admin: 12/28/18 16:17 Dose: 3 ml Alprazolam (Xanax) 0.25 mg PO BID PRN PRN Reason: Anxiety Stop: 01/03/19 11:12 Amiodarone HCl (Cordarone) 200 mg PO DAILY [facility] Last Admin: 12/28/18 13:53 Dose: 200 mg Apixaban (Eliquis) 2.5 mg PO BID [facility] Last Admin: 12/28/18 17:12 Dose: 2.5 mg Carvedilol (Coreg) 25 mg PO BID [facility] Last Admin: 12/28/18 17:12 Dose: 25 mg Cinacalcet (Sensipar) 30 mg PO DAILY [facility] Last Admin: 12/28/18 09:43 Dose: 30 mg Clonidine HCl (Catapres) 0.2 mg PO Q8H [facility] Dextrose (Dextrose 50% Inj) 0 ml IV STAT PRN; Protocol PRN Reason: Hypoglycemia Protocol Dextrose (Glutose 15) 0 gm PO ONCE PRN; Protocol PRN Reason: Hypoglycemia Protocol Diphenhydramine HCl (Benadryl) 50 mg PO Q6 PRN PRN Reason: Itching / Pruritus Last Admin: 12/28/18 01:59 Dose: 50 mg Glucagon (Glucagen Diagnostic Kit) 0 mg IM STAT PRN; Protocol PRN Reason: Hypoglycemia Protocol Dextrose (Dextrose 5% In Water 1000 Ml) 1,000 mls @ 0 mls/hr IV .Q0M PRN; Protocol PRN Reason: Hypoglycemia Protocol Insulin Aspart (Novolog) 0 unit SC ACHS [facility]; Protocol Last Admin: 12/28/18 17:13 Dose: 3 unit Insulin Glargine (Lantus) 10 unit SC [facility] Last Admin: 12/27/18 21:38 Dose: 10 unit Isosorbide Mononitrate (Imdur Er) 30 mg PO DAILY [facility] Last Admin: 12/28/18 13:56 Dose: Not Given Levothyroxine Sodium (Synthroid) 50 mcg PO DAILY@0630 [facility] Last Admin: 12/28/18 05:51 Dose: 50 mcg Montelukast Sodium (Singulair) 10 mg PO DAILY [facility] Last Admin: 12/28/18 09:42 Dose: 10 mg Ranolazine (Ranexa) 500 mg PO BID [facility] Last Admin: 12/28/18 17:13 Dose: 500 mg Tramadol HCl (Ultram) 50 mg PO BID PRN PRN Reason: pain Last Admin: 12/28/18 01:59 Dose: 50 mg Vitamin B Complex/Vit C/Folic Acid (Nephro-Courtney) 1 tab PO DAILY [facility] Last Admin: 12/28/18 09:42 Dose: 1 tab - Labs Labs: 12/27/18 07:08 12/27/18 07:08 PT 12.0 SECONDS (9.7-12.2) 12/27/18 07:08 INR 1.1 12/27/18 07:08 APTT 44.0 SECONDS (21-34) H 12/27/18 07:08
[2018-12-28] MEDS ORDERED: Ranolazine 500 mg Extended Release Tablets PO SCH (18:00)
[2018-12-28 20:22] LABS: HDL CHOLESTEROL 43 mg/dL (30-70)
[2018-12-28 20:27] LABS: IRON 95 ug/dL (49-181)
[2018-12-28 20:32] LABS: LDL CHOLESTEROL 59 mg/dL (0-129)
[2018-12-28 20:33] LABS: TOTAL IRON BINDING CAPACITY 205 ug/dL (250-450)
[2018-12-28 20:34] LABS: % IRON SATURATION 46 (20-55)
[2018-12-28] MEDS: (Lantus) Insulin Glargine, Recombinant SC SCH (21:43)
--- NOTE | 2018-12-28 22:26 | PN ---
DATE: 12/28/2018 SUBJECTIVE: The patient is a 38-year-old male. The patient was seen at the bedside. Looking comfortable. Has renal disease, on dialysis. No fever. No chills. No hematuria or hematochezia. No headache or dizziness. No chest pain or palpitation. PHYSICAL EXAMINATION: VITAL SIGNS: Blood pressure 115/73, respiratory rate 20, pulse 77, temperature 97.8. HEENT: Head: Normocephalic, atraumatic. Eyes: PERRLA. Extraocular muscles intact. Conjunctivae clear. Nose patent. NECK: Supple. No carotid bruit. No JVD or thyromegaly. CHEST: Bilaterally symmetrical. HEART: S1 and S2 positive. LUNGS: Clear to auscultation. ABDOMEN: Soft. Bowel sounds present. No organomegaly. EXTREMITIES: No edema. No cyanosis. NEUROLOGICAL: The patient is awake and alert. Follows simple commands. MEDICATIONS: Xanax, amiodarone, Eliquis, Spiriva, Sensipar, Catapres, Benadryl, insulin, B complex. LABORATORY DATA: White blood cells 10.3, hemoglobin 11.6, hematocrit 36.3, platelet count 118. Sodium 134, potassium 5.5, BUN 54, creatinine 5.8, glucose 479. ASSESSMENT AND PLAN: Mr. Jovani Saha is a 38-year-old male with anemia, hyperkalemia, renal insufficiency, hyperglycemia. Getting dialysis three times a week. He has a history of rapid response. Seen by dip lube operator because of chest pain, Cardizem was given. There was rapid heart rate. Cardizem 5 mg intravenous push was given. Chest x-ray reviewed. History of coronary artery bypass graft, post-surgery percutaneous coronary intervention, now with atretic left internal mammary artery graft, failed vein graft, on revascularization. Diabetes with labile sugars. For atrial fibrillation on anticoagulation and amiodarone for rhythm suppression. Peripheral vascular disease, status post bilateral below-knee amputation. This is Dr. Sybil Li's private patient. I am covering her. The patient is admitted with history of hypercholesterolemia, history of chronic obstructive pulmonary disease, history of seizures. Continue present treatment. Cardiology consult called. Repeat labs. We will follow up. Lucille Stone MD [facility] # [id number] MARIANN
[2018-12-28 22:32] LABS: FOLATE > 20.0 ng/mL
[2018-12-29] MEDS: Albuterol-Ipratrop 3 mg / 0.5 (3 ml) UD INH SCH ×6 (04:06→23:40)
[2018-12-29] MEDS: Levothyroxine 50 MCG TAB PO SCH (06:10)
--- NOTE | 2018-12-29 07:38 | HP ---
The patient was seen and examined on the bedside on 12/27/2018. CHIEF COMPLAINT: Shortness of breath. HISTORY OF PRESENT ILLNESS: The patient is a 38-year-old male with end-stage renal disease, on hemodialysis, history of coronary artery disease, [place], hypertension, diabetes mellitus, bilateral BKA, asthma, came with shortness of breath that woke him from sleep. The patient took three albuterol nebulizer treatment and used MDIs two times without relief. The patient says left-sided pressure like started early in the morning, persistent since the patient took 81 mg of aspirin. We admitted the patient for shortness of breath, started medications. PAST MEDICAL HISTORY: Anemia, anxiety, arthritis, asthma exacerbation, bronchitis, coronary artery disease, cardiac arrhythmias, congestive heart failure, depression, and gastritis. FAMILY HISTORY: Father and mother noncontributory. HABITS: No smoking. No drugs. No ethanol. REVIEW OF SYSTEMS: The patient seen and examined at the bedside. Looking comfortable. No fever. No chills. No hematuria or hematochezia. No headache or dizziness. No chest pain. No palpitations that moment. PHYSICAL EXAMINATION: VITAL SIGNS: Temperature 97.7, pulse 118, respiratory rate 18, blood pressure 194/97. HEENT: Head: Normocephalic, atraumatic. Eyes, PERRLA. Extraocular muscles intact. Conjunctivae clear. Nose patent. NECK: Supple. No carotid bruits. No JVD or thyromegaly. CHEST: Bilaterally symmetrical. HEART: S1 and S2 positive. LUNGS: Clear to auscultation. ABDOMEN: Soft. Bowel sounds present. No organomegaly. EXTREMITIES: Upper extremities no edema, no cyanosis. Lower extremities, below-knee amputation. NEUROLOGIC: Awake and alert. Follows simple commands. LABORATORY DATA: White blood cell is 10.3, hemoglobin 11.6, hematocrit 36.8, platelets 180. Sodium 134, potassium 5.5, BUN 54, creatinine 5.8. ASSESSMENT AND PLAN: The patient is a 38-year-old male with hyperkalemia, hypochloremia, renal insufficiency, hyperglycemia, congestive heart failure, anemia, came with dyspnea. We admitted the patient, put cardiology consult. The patient had multiple medical problems, dementia, anemia, anxiety, arthritis, asthma, atrial fibrillation, bronchitis, coronary artery disease, cardiac arrhythmias, congestive heart failure, chronic obstructive pulmonary disease, cerebrovascular accident, depression, diabetes mellitus, deep vein thrombosis, gastritis, gastroesophageal reflux disease, hypercholesterolemia, hypocholesterolemia, hypothyroidism, kidney stones, pneumonia, pulmonary embolism, end-stage renal disease, seizures, history of coronary artery bypass grafting, cholecystectomy, coronary artery stent, dialysis catheter placed. We admitted the patient, put cardiology consult with Dr. Leonides Escobar. Seen by Dr. Galindo, oil field caser also. Sugar was very uncontrolled. Getting sliding scale. Gastrointestinal and deep venous thrombosis prophylaxis. Repeat labs. We will follow up. Lucille Stone MD
[2018-12-29 08:08] VITALS: O2SAT 100
[2018-12-29] MEDS: (Novolog) Insulin Aspart, Recombinant 100 u/ml 10 ml vial SC SCH ×4 (08:16→21:38)
[2018-12-29 08:42] LABS: MEAN CELL VOLUME 88.7 fL (80.0-94.0); MEAN CORPUSCULAR HEMOGLOBIN 28.2 pg (27.0-31.0); MEAN CORPUSCULAR HGB CONC 31.8 g/dL (33.0-37.0); MEAN PLATELET VOLUME 8.9 fL (7.2-11.7); RBC 5.05 Mil/uL (4.40-5.90); RED CELL DISTRIBUTION WIDTH 20.4 % (11.5-14.5); WHITE BLOOD COUNT 14.4 K/uL (4.8-10.8)
[2018-12-29 08:45] LABS: HEMOGLOBIN 14.3 g/dL (12.0-18.0)
[2018-12-29 08:59] LABS: CALCIUM 10.2 mg/dl (8.6-10.4)
[2018-12-29] MEDS: Ranolazine 500 mg Extended Release Tablets PO SCH ×2 (10:37→17:47)
[2018-12-29] MEDS: Multivitamin Vitamin B Complex (Nephro-Vite) Tab PO SCH (10:37)
--- NOTE | 2018-12-29 13:08 | CP.PCM.PN ---
Subjective - Date & Time of Evaluation Date of Evaluation: 12/29/18 Time of Evaluation: 13:33 - Subjective Subjective: feels better no CP No SOB No fevers or chills Objective - Vital Signs/Intake and Output Vital Signs (last 24 hours): Temp Pulse Resp BP Pulse Ox 97.4 F L 63 20 139/60 100 12/29/18 08:07 12/29/18 12:28 12/29/18 08:07 12/29/18 10:37 12/29/18 12:00 Intake and Output: 12/29/18 12/29/18 06:59 18:59 Intake Total 200 Balance 200 - Medications Medications: Current Medications Albuterol/Ipratropium (Duoneb 3 Mg/0.5 Mg (3 Ml) Ud) 3 ml INH RQ4 [facility] Last Admin: 12/29/18 11:05 Dose: Not Given Alprazolam (Xanax) 0.25 mg PO BID PRN PRN Reason: Anxiety Stop: 01/03/19 11:12 Amiodarone HCl (Cordarone) 200 mg PO DAILY [facility] Last Admin: 12/29/18 10:37 Dose: 200 mg Apixaban (Eliquis) 2.5 mg PO BID [facility] Last Admin: 12/29/18 10:37 Dose: 2.5 mg Carvedilol (Coreg) 25 mg PO BID [facility] Last Admin: 12/29/18 10:37 Dose: 25 mg Cinacalcet (Sensipar) 30 mg PO DAILY [facility] Last Admin: 12/29/18 10:37 Dose: 30 mg Clonidine HCl (Catapres) 0.2 mg PO Q8H [facility] Last Admin: 12/29/18 06:10 Dose: 0.2 mg Dextrose (Dextrose 50% Inj) 0 ml IV STAT PRN; Protocol PRN Reason: Hypoglycemia Protocol Dextrose (Glutose 15) 0 gm PO ONCE PRN; Protocol PRN Reason: Hypoglycemia Protocol Diphenhydramine HCl (Benadryl) 50 mg PO Q6 PRN PRN Reason: Itching / Pruritus Last Admin: 12/29/18 00:34 Dose: 50 mg Glucagon (Glucagen Diagnostic Kit) 0 mg IM STAT PRN; Protocol PRN Reason: Hypoglycemia Protocol Dextrose (Dextrose 5% In Water 1000 Ml) 1,000 mls @ 0 mls/hr IV .Q0M PRN; Pro tocol PRN Reason: Hypoglycemia Protocol Insulin Aspart (Novolog) 0 unit SC ACHS [facility]; Protocol Last Admin: 12/29/18 12:30 Dose: 2 unit Insulin Glargine (Lantus) 10 unit SC HS [facility] Last Admin: 12/28/18 21:43 Dose: 10 unit Isosorbide Mononitrate (Imdur Er) 30 mg PO DAILY [facility] Last Admin: 12/28/18 13:56 Dose: Not Given Levothyroxine Sodium (Synthroid) 50 mcg PO DAILY@0630 [facility] Last Admin: 12/29/18 06:10 Dose: 50 mcg Montelukast Sodium (Singulair) 10 mg PO DAILY [facility] Last Admin: 12/29/18 10:37 Dose: 10 mg Ranolazine (Ranexa) 500 mg PO BID [facility] Last Admin: 12/29/18 10:37 Dose: 500 mg Tramadol HCl (Ultram) 50 mg PO BID PRN PRN Reason: pain Last Admin: 12/29/18 00:34 Dose: 50 mg Vitamin B Complex/Vit C/Folic Acid (Nephro-Courtney) 1 tab PO DAILY [facility] Last Admin: 12/29/18 10:37 Dose: 1 tab - Labs Labs: 12/29/18 08:35 12/29/18 08:35 PT 12.0 SECONDS (9.7-12.2) 12/27/18 07:08 INR 1.1 12/27/18 07:08 APTT 44.0 SECONDS (21-34) H 12/27/18 07:08 - Constitutional Appears: No Acute Distress (legally blind) - Head Exam Head Exam: ATRAUMATIC - Eye Exam Eye Exam: absent: Normal appearance - ENT Exam ENT Exam: Mucous Membranes Moist, Normal Oropharynx - Respiratory Exam Respiratory Exam: Clear to Ausculation Bilateral. absent: Rales, Rhonchi - Cardiovascular Exam Cardiovascular Exam: REGULAR RHYTHM, +S1, +S2. absent: JVD - GI/Abdominal Exam GI & Abdominal Exam: Soft. absent: Tenderness - Extremities Exam Extremities Exam: absent: Normal Inspection (b/l BKA) - Neurological Exam Neurological Exam: Alert, Oriented x3 - Psychiatric Exam Psychiatric exam: Normal Affect, Normal Mood - Skin Skin Exam: Normal Color, Warm Assessment and Plan - Assessment and Plan (Free Text) Assessment: 38 year old man with ERSD and shortness of breath improved with HD Coagulopathy with history of intra cardiac thrombus around permacath resume Eliquis 5mg po BID Atrial fibrillaiton/flutter resume amiodarone for rhythm control Chronic angina s/p CABG and multiple failed PCI disease is non revascularizable resume Ranexa 500 BID HTN is chronic and controlled on coreg, can titrate clonidine to Imdur as angina dictates DM is chronic and brittle insulin coverage, labile sugars. Plan meds as ordered Amiodarone HCl (Cordarone) 200 mg PO DAILY [facility] Last Admin: 12/29/18 10:37 Dose: 200 mg Apixaban (Eliquis) 2.5 mg PO BID [facility] Last Admin: 12/29/18 10:37 Dose: 2.5 mg Carvedilol (Coreg) 25 mg PO BID [facility] Last Admin: 12/29/18 10:37 Dose: 25 mg Clonidine HCl (Catapres) 0.2 mg PO Q8H [facility] Last Admin: 12/29/18 06:10 Dose: 0.2 mg Isosorbide Mononitrate (Imdur Er) 30 mg PO DAILY [facility] Last Admin: 12/28/18 13:56 Dose: Not Given Ranolazine (Ranexa) 500 mg PO BID [facility] Last Admin: 12/29/18 10:37 Dose: 500 mg
--- NOTE | 2018-12-29 13:40 | CP.PCM.PN ---
Subjective - Date & Time of Evaluation Date of Evaluation: 12/29/18 Time of Evaluation: 13:40 - Subjective Subjective: PATIENT SEEN AND EXAMINED AT THE BEDSIDE Objective - Vital Signs/Intake and Output Vital Signs (last 24 hours): Temp Pulse Resp BP Pulse Ox 97.4 F L 68 20 114/59 L 100 12/29/18 08:07 12/29/18 13:35 12/29/18 08:07 12/29/18 13:35 12/29/18 12:00 Intake and Output: 12/29/18 12/29/18 06:59 18:59 Intake Total 200 Balance 200 - Medications Medications: Current Medications Albuterol/Ipratropium (Duoneb 3 Mg/0.5 Mg (3 Ml) Ud) 3 ml INH RQ4 [facility] Last Admin: 12/29/18 11:05 Dose: Not Given Alprazolam (Xanax) 0.25 mg PO BID PRN PRN Reason: Anxiety Stop: 01/03/19 11:12 Amiodarone HCl (Cordarone) 200 mg PO DAILY [facility] Last Admin: 12/29/18 10:37 Dose: 200 mg Apixaban (Eliquis) 2.5 mg PO BID [facility] Last Admin: 12/29/18 10:37 Dose: 2.5 mg Carvedilol (Coreg) 25 mg PO BID [facility] Last Admin: 12/29/18 10:37 Dose: 25 mg Cinacalcet (Sensipar) 30 mg PO DAILY [facility] Last Admin: 12/29/18 10:37 Dose: 30 mg Clonidine HCl (Catapres) 0.2 mg PO Q8H [facility] Last Admin: 12/29/18 13:35 Dose: Not Given Dextrose (Dextrose 50% Inj) 0 ml IV STAT PRN; Protocol PRN Reason: Hypoglycemia Protocol Dextrose (Glutose 15) 0 gm PO ONCE PRN; Protocol PRN Reason: Hypoglycemia Protocol Diphenhydramine HCl (Benadryl) 50 mg PO Q6 PRN PRN Reason: Itching / Pruritus Last Admin: 12/29/18 13:37 Dose: 50 mg Glucagon (Glucagen Diagnostic Kit) 0 mg IM STAT PRN; Protocol PRN Reason: Hypoglycemia Protocol Dextrose (Dextrose 5% In Water 1000 Ml) 1,000 mls @ 0 mls/hr IV .Q0M PRN; Prot ocol PRN Reason: Hypoglycemia Protocol Insulin Aspart (Novolog) 0 unit SC ACHS [facility]; Protocol Last Admin: 12/29/18 12:30 Dose: 2 unit Insulin Glargine (Lantus) 10 unit SC HS [facility] Last Admin: 12/28/18 21:43 Dose: 10 unit Isosorbide Mononitrate (Imdur Er) 30 mg PO DAILY [facility] Last Admin: 12/28/18 13:56 Dose: Not Given Levothyroxine Sodium (Synthroid) 50 mcg PO DAILY@0630 [facility] Last Admin: 12/29/18 06:10 Dose: 50 mcg Montelukast Sodium (Singulair) 10 mg PO DAILY [facility] Last Admin: 12/29/18 10:37 Dose: 10 mg Ranolazine (Ranexa) 500 mg PO BID [facility] Last Admin: 12/29/18 10:37 Dose: 500 mg Tramadol HCl (Ultram) 50 mg PO BID PRN PRN Reason: pain Last Admin: 12/29/18 13:36 Dose: 50 mg Vitamin B Complex/Vit C/Folic Acid (Nephro-Courtney) 1 tab PO DAILY [facility] Last Admin: 12/29/18 10:37 Dose: 1 tab - Labs Labs: 12/29/18 08:35 12/29/18 08:35 PT 12.0 SECONDS (9.7-12.2) 12/27/18 07:08 INR 1.1 12/27/18 07:08 APTT 44.0 SECONDS (21-34) H 12/27/18 07:08 Assessment and Plan - Assessment and Plan (Free Text) Assessment: FOLLOW UP WITH PMD RESUME HD SCHEDULE CONTINUE HOME KEVYN NEW PRESCRIPTION GIVEN AMIODORONE 200 MG ONE TAB PO DAILY ELIQUIS 2.5 MG ONE TAB BID PO IMDUR 30 MG PO LEON SSYNTHROID 50 MCG PO DAILY RANEXA 500 MG PO BID ACTIVITY TOLERATED CALL DR DURON OR DR BELL OR GO TO THE EMERGENCY ROOM IF SYMPTOM RETURN OR WORSENING
--- NOTE | 2018-12-29 20:59 | CP.PCM.CON ---
History of Present Illness - History of Present Illness History of Present Illness: contacted the floor to see the patient , was informed by nurse Mari , pt was discharged already , awaiting transportation Past Patient History - Infectious Disease Hx of Infectious Diseases: None - Tetanus Immunizations Tetanus Immunization: >10 years Ago - Past Medical History & Family History Past Medical History?: Yes - Past Social History Smoking Status: Former Smoker - CARDIAC Hx Atrial Fibrillation: Yes Hx Cardia Arrhythmia: Yes Hx Congestive Heart Failure: Yes Hx Hypercholesterolemia: Yes Hx Hypertension: Yes - PULMONARY Hx Asthma: Yes Hx Bronchitis: Yes Hx Chronic Obstructive Pulmonary Disease (COPD): Yes Hx Pneumonia: Yes Hx Pulmonary Embolism: Yes - NEUROLOGICAL Hx Alzheimer's Disease: Yes Hx Seizures: Yes - HEENT Hx HEENT Problems: Yes Hx Blind: Yes Hx Cataracts: Yes - RENAL Hx Chronic Kidney Disease: Yes Hx Kidney Stones: Yes - ENDOCRINE/METABOLIC Hx Hyperthyroidism: No Hx Hypothyroidism: Yes - HEMATOLOGICAL/ONCOLOGICAL Hx Anemia: Yes - INTEGUMENTARY Hx Dermatological Problems: No - MUSCULOSKELETAL/RHEUMATOLOGICAL Hx Arthritis: Yes - GASTROINTESTINAL Hx Gall Bladder Disease: Yes Hx Gastritis: Yes - GENITOURINARY/GYNECOLOGICAL Hx Sexually Transmitted Disorders: No - PSYCHIATRIC Hx Anxiety: Yes Hx Depression: Yes Hx Substance Use: No - SURGICAL HISTORY Hx Cholecystectomy: Yes (2011) 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/2009) Hx Coronary Stent: Yes - ANESTHESIA Hx Anesthesia: Yes Hx Anesthesia Reactions: No Hx Malignant Hyperthermia: No Meds Home Medications: Home Medication List Medication Instructions Recorded Confirmed Type Amiodarone [Cordarone] 200 mg PO DAILY 30 Days tab 12/29/18 Rx Apixaban [Eliquis] 2.5 mg PO BID 30 Days tab 12/29/18 Rx Isosorbide Mononitrate ER [Imdur 30 mg PO DAILY 30 Days tab 12/29/18 Rx ER] Levothyroxine [Synthroid] 50 mcg PO DAILY@0630 30 Days tab 12/29/18 Rx Ranolazine [Ranexa] 500 mg PO BID [address] 12/29/18 Rx Allergies/Adverse Reactions: Allergies Allergy/AdvReac Type Severity Reaction Status Date / Time acetaminophen [From Percocet] Allergy RASH Verified 11/20/18 12:35 atenolol Allergy RASH Verified 11/20/18 12:35 digoxin Allergy RASH Verified 11/20/18 12:35 milk Allergy ITCHING Verified 11/20/18 12:35 morphine Allergy RASH Verified 11/20/18 12:35 oxycodone HCl [From Percocet] Allergy RASH Verified 11/20/18 12:35 eggs Allergy Uncoded 11/20/18 12:35 - Medications Medications: Current Medications Albuterol/Ipratropium (Duoneb 3 Mg/0.5 Mg (3 Ml) Ud) 3 ml INH RQ4 [facility] Last Admin: 12/29/18 19:01 Dose: 3 ml Alprazolam (Xanax) 0.25 mg PO BID PRN PRN Reason: Anxiety Stop: 01/03/19 11:12 Amiodarone HCl (Cordarone) 200 mg PO DAILY [facility] Last Admin: 12/29/18 10:37 Dose: 200 mg Apixaban (Eliquis) 2.5 mg PO BID [facility] Last Admin: 12/29/18 17:47 Dose: 2.5 mg Carvedilol (Coreg) 25 mg PO BID [facility] Last Admin: 12/29/18 17:47 Dose: 25 mg Cinacalcet (Sensipar) 30 mg PO DAILY [facility] Last Admin: 12/29/18 10:37 Dose: 30 mg Clonidine HCl (Catapres) 0.2 mg PO Q8H [facility] Last Admin: 12/29/18 13:35 Dose: Not Given Dextrose (Dextrose 50% Inj) 0 ml IV STAT PRN; Protocol PRN Reason: Hypoglycemia Protocol Dextrose (Glutose 15) 0 gm PO ONCE PRN; Protocol PRN Reason: Hypoglycemia Protocol Diphenhydramine HCl (Benadryl) 50 mg PO Q6 PRN PRN Reason: Itching / Pruritus Last Admin: 12/29/18 13:37 Dose: 50 mg Glucagon (Glucagen Diagnostic Kit) 0 mg IM STAT PRN; Protocol PRN Reason: Hypoglycemia Protocol Dextrose (Dextrose 5% In Water 1000 Ml) 1,000 mls @ 0 mls/hr IV .Q0M PRN; Protocol PRN Reason: Hypoglycemia Protocol Insulin Aspart (Novolog) 0 unit SC [facility]; Protocol Last Admin: 12/29/18 17:42 Dose: Not Given Insulin Glargine (Lantus) 10 unit SC HS [facility] Last Admin: 12/28/18 21:43 Dose: 10 unit Isosorbide Mononitrate (Imdur Er) 30 mg PO DAILY [facility] Last Admin: 12/28/18 13:56 Dose: Not Given Levothyroxine Sodium (Synthroid) 50 mcg PO DAILY@0630 [facility] Last Admin: 12/29/18 06:10 Dose: 50 mcg Montelukast Sodium (Singulair) 10 mg PO DAILY [facility] Last Admin: 12/29/18 10:37 Dose: 10 mg Ranolazine (Ranexa) 500 mg PO BID [facility] Last Admin: 12/29/18 17:47 Dose: 500 mg Tramadol HCl (Ultram) 50 mg PO BID PRN PRN Reason: pain Last Admin: 12/29/18 13:36 Dose: 50 mg Vitamin B Complex/Vit C/Folic Acid (Nephro-Courtney) 1 tab PO DAILY [facility] Last Admin: 12/29/18 10:37 Dose: 1 tab Results - Vital Signs Recent Vital Signs: Last Vital Signs Temp 97.8 F 12/29/18 17:41 Pulse 65 12/29/18 17:41 Resp 18 12/29/18 17:41 BP 126/56 L 12/29/18 17:47 Pulse Ox 100 12/29/18 19:36 - Labs Result Diagrams: 12/29/18 08:35 12/29/18 08:35 Labs: Laboratory Results - last 24 hr 12/28/18 12/29/18 12/29/18 19:58 06:45 08:35 WBC 14.4 H RBC 5.05 Hgb 14.3 D Hct 44.8 MCV 88.7 MCH 28.2 MCHC 31.8 L RDW 20.4 H Plt Count 235 MPV 8.9 Sodium Potassium Chloride Carbon Dioxide Anion Gap BUN Creatinine Est GFR ( Amer) Est GFR (Non-Af Amer) POC Glucose (mg/dL) 111 H Random Glucose Calcium Folate > 20.0 TSH 3rd Generation 12/29/18 12/29/18 12/29/18 08:35 11:47 16:20 WBC RBC Hgb Hct MCV MCH MCHC RDW Plt Count MPV Sodium 138 Potassium 6.1 H Chloride 97 L Carbon Dioxide 21 L Anion Gap 26 H BUN 71 H Creatinine 6.0 H Est GFR ( Amer) 13 Est GFR (Non-Af Amer) 11 POC Glucose (mg/dL) 170 H 97 Random Glucose 98 D Calcium 10.2 Folate TSH 3rd Generation 3.00
[2018-12-29] MEDS: (Lantus) Insulin Glargine, Recombinant SC SCH (21:38)
[2018-12-30 01:05] VITALS: RESP 20
--- NOTE | 2018-12-30 01:49 | PN ---
DATE: 12/29/2018 SUBJECTIVE: The patient is 38-year-old male. The patient was seen and examined at the bedside on 12/29/2018. Looking comfortable. No fever. No chills. No hematuria or hematochezia. No headache or dizziness. No chest pain. No shortness of breath. PHYSICAL EXAMINATION: VITAL SIGNS: Temperature 97.4, pulse 63, respiratory rate 20, blood pressure 140/60, and pulse oximetry 100. HEENT: Head: Normocephalic and atraumatic. Eyes: PERRLA. Extraocular muscles intact. Conjunctivae clear. Nose patent. Mucous membranes moist. NECK: Supple. No carotid bruit. No JVD or thyromegaly. CHEST: Bilaterally symmetrical. HEART: S1 and S2 positive. LUNGS: Clear to auscultation. ABDOMEN: Soft. Bowel sounds present. No organomegaly. EXTREMITIES: No edema. No cyanosis. NEUROLOGICAL: The patient is awake and alert. Moving all four extremities. No focal deficit. MEDICATIONS: Albuterol, Xanax, Cordarone, Eliquis, Coreg, Sensipar, Catapres, dextrose, Benadryl. LABORATORY DATA: White blood cell is 14.4, hemoglobin 14, hematocrit 44.8, platelets 235. Sodium 130, potassium 6.1, BUN 71, creatinine 6, glucose 98. ASSESSMENT AND PLAN: Mr. Jovani Saha is a 38-year-old male with leukocytosis, hyperkalemia, hypochloremia, renal insufficiency, has end-stage renal disease, came with shortness of breath, coagulopathy with history of intracardiac thrombosis, round [id number], resume Eliquis 5 mg p.o. b.i.d., atrial fibrillation/flutter, resume amiodarone for rhythm control as per Cardiology, chronic angina, status post coronary artery bypass graft and multiple failed percutaneous coronary intervention disease non- revascularization, resume Xanax b.i.d. Hypertension, if chronic uncontrolled on Coreg, then titrate Coumadin to Imdur as angina dictates abnormalities in chronic and brittle insulin coverage level, labile sugar. Plan is continue treatment. Gastrointestinal and deep venous thrombosis prophylaxis. Repeat laboratories. We will follow up. Lucille Stone MD MARIANN
[2018-12-30] MEDS: Albuterol-Ipratrop 3 mg / 0.5 (3 ml) UD INH SCH (03:10)
[2018-12-30] MEDS: Levothyroxine 50 MCG TAB PO SCH (05:51)
[2018-12-30 08:21] VITALS: BP 120/74; PULSE 62; TEMP 97.8
[2018-12-30] MEDS: (Novolog) Insulin Aspart, Recombinant 100 u/ml 10 ml vial SC SCH (08:30)
[2018-12-30] MEDS: Multivitamin Vitamin B Complex (Nephro-Vite) Tab PO SCH (10:14)
[2018-12-30] MEDS: Ranolazine 500 mg Extended Release Tablets PO SCH (10:14)
--- NOTE | 2018-12-30 12:16 | CP.PCM.PN ---
Subjective - Date & Time of Evaluation Date of Evaluation: 12/29/18 Time of Evaluation: 12:15 - Subjective Subjective: pt seen and examined K 6.1 extra HD today Objective - Vital Signs/Intake and Output Vital Signs (last 24 hours): Temp Pulse Resp BP Pulse Ox 97.4 F L 69 20 139/60 100 12/29/18 08:07 12/29/18 10:35 12/29/18 08:07 12/29/18 10:37 12/29/18 08:07 Intake and Output: 12/29/18 12/29/18 06:59 18:59 Intake Total 200 Balance 200 - Medications Medications: Current Medications Albuterol/Ipratropium (Duoneb 3 Mg/0.5 Mg (3 Ml) Ud) 3 ml INH RQ4 [facility] Last Admin: 12/29/18 11:05 Dose: Not Given Alprazolam (Xanax) 0.25 mg PO BID PRN PRN Reason: Anxiety Stop: 01/03/19 11:12 Amiodarone HCl (Cordarone) 200 mg PO DAILY [facility] Last Admin: 12/29/18 10:37 Dose: 200 mg Apixaban (Eliquis) 2.5 mg PO BID [facility] Last Admin: 12/29/18 10:37 Dose: 2.5 mg Carvedilol (Coreg) 25 mg PO BID [facility] Last Admin: 12/29/18 10:37 Dose: 25 mg Cinacalcet (Sensipar) 30 mg PO DAILY [facility] Last Admin: 12/29/18 10:37 Dose: 30 mg Clonidine HCl (Catapres) 0.2 mg PO Q8H [facility] Last Admin: 12/29/18 06:10 Dose: 0.2 mg Dextrose (Dextrose 50% Inj) 0 ml IV STAT PRN; Protocol PRN Reason: Hypoglycemia Protocol Dextrose (Glutose 15) 0 gm PO ONCE PRN; Protocol PRN Reason: Hypoglycemia Protocol Diphenhydramine HCl (Benadryl) 50 mg PO Q6 PRN PRN Reason: Itching / Pruritus Last Admin: 12/29/18 00:34 Dose: 50 mg Glucagon (Glucagen Diagnostic Kit) 0 mg IM STAT PRN; Protocol PRN Reason: Hypoglycemia Protocol Dextrose (Dextrose 5% In Water 1000 Ml) 1,000 mls @ 0 mls/hr IV .Q0M PRN; Protocol PRN Reason: Hypoglycemia Protocol Insulin Aspart (Novolog) 0 unit SC ACHS [facility]; Protocol Last Admin: 12/29/18 08:16 Dose: Not Given Insulin Glargine (Lantus) 10 unit SC HS [facility] Last Admin: 12/28/18 21:43 Dose: 10 unit Isosorbide Mononitrate (Imdur Er) 30 mg PO DAILY [facility] Last Admin: 12/28/18 13:56 Dose: Not Given Levothyroxine Sodium (Synthroid) 50 mcg PO DAILY@0630 [facility] Last Admin: 12/29/18 06:10 Dose: 50 mcg Montelukast Sodium (Singulair) 10 mg PO DAILY [facility] Last Admin: 12/29/18 10:37 Dose: 10 mg Ranolazine (Ranexa) 500 mg PO BID [facility] Last Admin: 12/29/18 10:37 Dose: 500 mg Tramadol HCl (Ultram) 50 mg PO BID PRN PRN Reason: pain Last Admin: 12/29/18 00:34 Dose: 50 mg Vitamin B Complex/Vit C/Folic Acid (Nephro-Courtney) 1 tab PO DAILY [facility] Last Admin: 12/29/18 10:37 Dose: 1 tab - Labs Labs: 12/29/18 08:35 12/29/18 08:35 PT 12.0 SECONDS (9.7-12.2) 12/27/18 07:08 INR 1.1 12/27/18 07:08 APTT 44.0 SECONDS (21-34) H 12/27/18 07:08
--- NOTE | 2018-12-30 12:49 | CARD ---
APPROVED REPORT Date of service: 12/28/2018 EKG Measurement Heart [id number] <Conclusion> Wide QRS tachycardia Inferior infarct, possibly acute ACUTE [place] / STEMI Consider right ventricular involvement in acute inferior infarct Abnormal ECG
--- NOTE | 2018-12-30 13:08 | CARD ---
APPROVED REPORT Date of service: 12/27/2018 EKG Measurement Heart [id number] <Conclusion> Sinus tachycardia Possible Left atrial enlargement Nonspecific intraventricular conduction delay Nonspecific ST/T abnormality. Baseline artifact - Please repeat Abnormal ECG
== END 2018-12-30 11:41 | disposition home or self-care (01) ==
LOC: C.ER 06:20 → C.9E 09:03 → C.5S 09:36
PROVIDERS: ADMIT Internal Medicine; ATTEND Internal Medicine
DX: I25.700 Atherosclerosis of coronary artery bypass graft(s), unspecified, with unstable angina pectoris (principal); F64.9 Gender identity disorder, unspecified; G30.9 Alzheimer's disease, unspecified; F02.80 Dementia in other diseases classified elsewhere, unspecified severity, without behavioral disturbance, psychotic disturbance, mood disturbance, and anxiety; H54.7 Unspecified visual loss; I13.2 Hypertensive heart and chronic kidney disease with heart failure and with stage 5 chronic kidney disease, or end stage renal disease; E87.5 Hyperkalemia; E11.65 Type 2 diabetes mellitus with hyperglycemia; I48.91 Unspecified atrial fibrillation; I50.9 Heart failure, unspecified; J44.9 Chronic obstructive pulmonary disease, unspecified; N18.6 End stage renal disease; Z79.01 Long term (current) use of anticoagulants; Z87.891 Personal history of nicotine dependence; Z89.512 Acquired absence of left leg below knee; Z89.511 Acquired absence of right leg below knee; Z95.5 Presence of coronary angioplasty implant and graft; Z99.2 Dependence on renal dialysis
CPT/HCPCS: 36415; 71045; 80048; 80053; 80061; 82746; 82948; 83036; 83540; 83550; 83880; 84443; 84484; 85025; 85027; 85610; 85730; 93005; 94640; 96372; 99285; G0257; G0378; J1644; J7070

== ENCOUNTER 2019-01-06 02:53 | Observation (INO) | payer OTHER ==
[2019-01-06 02:53] VITALS: BMI 20.7
--- NOTE | 2019-01-06 03:22 | C.PDOC ---
History Of Present Illness Patient with PMHx of DM, ESRD presents to the ED c/o not feeling well. Patient also c/o SOB as well. Patient denies fever, chills, nausea, vomit, CP, palpitations, weakness, numbness. Time Seen by Provider: 01/06/19 03:21 Chief Complaint (Nursing): Shortness Of Breath History Per: Patient History/Exam Limitations: clinical condition Onset/Duration Of Symptoms: Days Current Symptoms Are (Timing): Still Present Initiating Event: Upper Respiratory Illness Quality: Tightness Current Respiratory Medications: See Home Med List Recent travel outside of the [place]: No Additional History Per: Patient Past Medical History Reviewed: Historical Data, Nursing Documentation, Vital Signs Vital Signs: Last Vital Signs Temp 98.1 F 01/06/19 03:07 Pulse 104 H 01/06/19 03:07 Resp 22 01/06/19 03:07 BP 236/85 H 01/06/19 03:07 Pulse Ox 99 01/06/19 03:07 Primary Care Provider: Sybil Li I - Medical History PMH: Alzheimer's Disease, Anemia, Anxiety, Arthritis, Asthma, Atrial Fibrillation, Bronchitis, CAD, Cardia Arrhythmia, CHF, COPD, CVA, Depression, Diabetes, Deep Vein Thrombosis, Gastritis, Gastrointestinal Ulcer, Gall Bladder Disease, HTN, Hypercholesterolemia, Hypothyroidism, Kidney Stones, Pneumonia, Pulmonary Embolism, End Stage Renal Disease, Chronic Kidney Disease, Seizures Denies: Hyperthyroidism, Sexually Transmitted Disease Surgical History: CABG (12/2009), Cholecystectomy (2011), Coronary Stent - [facility] (09/17/18) ABDOMINAL WALL SINOGRAM (12/31/13) ASSISTANCE WITH RESPIRATORY VENTILATION, 24-96 HRS, CPAP (05/31/18) C.A.T. SCAN OF ABDOMEN (10/31/13) CENTRAL VENOUS CATHETER PLACEMENT WITH GUIDANCE (02/10/15) CHANGE OTHER DEVICE IN TRUNK SUBCU/FASCIA, MEDICAL LAB TECHNICIAN APPROACH (06/01/17) DILATE R ANT TIB ART W DRUG-ELUT INTRALUM, PERC (08/12/15) DILATION OF LEFT FEMORAL ARTERY, PERCUTANEOUS APPROACH (07/04/16) DILATION OF RIGHT FEMORAL ARTERY, PERCUTANEOUS APPROACH (08/12/15) DILATION OF RIGHT POPLITEAL ARTERY, PERCUTANEOUS APPROACH (08/12/15) DX ULTRASOUND-HEART (01/05/13) ENTERAL INFUSION OF CONCENTRATED NUT. SUBSTANCES (06/28/13) EXCIS DEBRIDE OF WOUND, INFECT, OR BURN (08/03/14) EXCISION OF STOMACH, ENDO, DIAGN (03/03/17) EXTIRPATION OF MATTER FROM L FEM ART, PERC APPROACH (07/04/16) EXTIRPATION OF MATTER FROM R FEM ART, PERC APPROACH (08/12/15) EXTIRPATION OF MATTER FROM R POPL ART, PERC APPROACH (08/12/15) FLUOROSCOPY OF L LOW EXTREM ART USING L OSM CONTRAST (08/12/15) FLUOROSCOPY OF R LOW EXTREM ART USING L OSM CONTRAST (08/12/15) FLUOROSCOPY OF RIGHT JUGULAR VEINS, GUIDANCE (06/01/17) FREE SKIN GRAFT NEC (08/03/14) HEAD SOFT TISS X-RAY NEC (04/15/13) HEMODIALYSIS (04/28/15) INCIS W REM OF FORIEGN BODY OR DEV FROM SKIN & SUBCUT TISSUE (08/08/13) INSERT INFUSION DEV IN R INT JUGULAR VEIN, PERC (06/01/17) INSERTION OF INFUSION DEV INTO R SUBCLAV VEIN, PERC APPROACH (01/19/16) INSERTION OF INFUSION DEV INTO SUP VENA CAVA, PERC APPROACH (01/07/18) INSPECTION OF UPPER INTESTINAL TRACT, ENDO (03/03/17) INTRODUCE OF OTH THROMBOLYTIC INTO PERIPH ART, PERC APPROACH (08/12/15) LAPAROSCOPIC CHOLECYSTECTOMY (09/21/13) LOC EXC LES METATAR/TAR (06/01/14) PACKED CELL TRANSFUSION (06/01/14) PERCUTAN LIVER ASPIRAT (12/31/13) PERFORMANCE OF URINARY FILTRATION, MULTIPLE (05/17/17) PERFORMANCE OF URINARY FILTRATION, SINGLE (12/18/16) SKIN & SUBQ INCISION NEC (10/24/14) TETANUS TOXOID ADMINIST (06/13/14) TRANSFUSE NONAUT RED BLOOD CELLS IN PERIPH VEIN, PERC (04/09/17) ULTRASONOGRAPHY OF RIGHT AND LEFT HEART (04/09/17) ULTRASONOGRAPHY OF SUPERIOR VENA CAVA, GUIDANCE (01/07/18) VENOUS CATHETERIZATION FOR RENAL DIALYSIS (08/08/13) VENOUS CATHETERIZATION NEC (04/30/13) Family History: States: Unknown Family Hx - Social History Hx Tobacco Use: No Hx Alcohol Use: No Hx Substance Use: No - Immunization History Hx Tetanus Toxoid Vaccination: Yes Hx Influenza Vaccination: Yes Hx Pneumococcal Vaccination: Yes Review Of Systems Constitutional: Positive for: Malaise. Negative for: Fever, Chills Cardiovascular: Negative for: Chest Pain, Palpitations Respiratory: Positive for: Cough, Shortness of Breath Gastrointestinal: Negative for: Nausea, Vomiting, Abdominal Pain Skin: Negative for: Rash Neurological: Negative for: Weakness, Numbness, Headache Physical Exam - Physical Exam Appears: Non-toxic, No Acute Distress Skin: Warm, Dry Head: Normacephalic Eye(s): bilateral: Other (blind) Oral Mucosa: Moist Neck: Supple Chest: Symmetrical Cardiovascular: Rhythm Regular Respiratory: Rales (bilateral bases), No Rhonchi, No Wheezing Gastrointestinal/Abdominal: Soft, No Tenderness, No Distention Back: No CVA Tenderness Extremity: Other (b/l bka) Extremity: Bilateral: Other (BKA) Neurological/Psych: Oriented x3, Normal Speech, Normal Cognition Gait: Unable To Assess ED Course And Treatment - Laboratory Results Result Diagrams: 01/06/19 05:25 01/06/19 05:06 ECG: Interpreted By Me, Viewed By Me ECG Rhythm: Sinus Rhythm (98), Nonspecific Changes O2 Sat by Pulse Oximetry: 99 (ON RA) Pulse Ox Interpretation: Normal - Radiology CXR: Interpreted by Me, Viewed By Me CXR Interpretation: Yes: Other (cabg, r hd catheter, unchnaged from 12/28/18). No: Infiltrates, Fracture, Pnemothorax Progress Note: Plan: - VBG. - EKG. - Labs. - CXR Disposition Discussed With : Sybil Li Comment: [facility] and took over the care at 6:15 AM Doctor Will See Patient In The: ED Counseled Patient/Family Regarding: Studies Performed, Diagnosis - Disposition Disposition: HOSPITALIZED Disposition Time: 03:22 Condition: GUARDED Forms: [facility] (Burmese) - POA Present On Arrival: Poor Glycemic Control - Clinical Impression Clinical Impression: Dyspnea, ESRD (end stage renal disease) on dialysis - Scribe Statement The provider has reviewed the documentation as recorded by the Scribe Mike Sheets All medical record entries made by the Scribe were at my direction and personally dictated by me. I have reviewed the chart and agree that the record accurately reflects my personal performance of the history, physical exam, medical decision making, and the department course for this patient. I have also personally directed, reviewed, and agree with the discharge instructions and disposition. Decision To Admit - Pt Status Changed To: Hospital Disposition Of: Observation - . Bed Request Type: Telemetry Admitting Physician: Sybil Li Patient Diagnosis: Dyspnea, ESRD (end stage renal disease) on dialysis
[2019-01-06 05:07] LABS: VENOUS BLOOD GAS BASE EXCESS -1.8 mmol/L (0.0-2.0); VENOUS BLOOD GAS PCO2 48 mmHg (40-60); VENOUS BLOOD GAS PO2 37 mm/Hg (30-55); VENOUS BLOOD PH 7.32 (7.32-7.43)
[2019-01-06 05:17] LABS: INR 1.2; PROTHROMBIN TIME 12.9 SECONDS (9.7-12.2)
[2019-01-06 05:27] LABS: BASO # 0.1 K/uL (0.0-0.2); BASO % 0.7 % (0.0-2.0); EOS # 0.4 K/uL (0.0-0.7); EOS % 2.8 % (0.0-4.0); HEMOGLOBIN 10.8 g/dL (12.0-18.0); LYMPH # 2.7 K/uL (1.0-4.3); LYMPH % 21.1 % (20.0-40.0); MEAN CELL VOLUME 88.7 fL (80.0-94.0); MEAN CORPUSCULAR HGB CONC 31.6 g/dL (33.0-37.0); MEAN PLATELET VOLUME 9.1 fL (7.2-11.7); MONO # 0.6 K/uL (0.0-0.8); MONO % 4.5 % (0.0-10.0); NEUT # 9.1 K/uL (1.8-7.0); NEUT % 70.9 % (50.0-75.0); RBC 3.84 Mil/uL (4.40-5.90); RED CELL DISTRIBUTION WIDTH 20.4 % (11.5-14.5); WHITE BLOOD COUNT 12.8 K/uL (4.8-10.8)
[2019-01-06 05:53] LABS: ALB/GLOB RATIO 1.2 (1.0-2.1); ALBUMIN 4.5 g/dL (3.5-5.0); CALCIUM 9.5 mg/dl (8.6-10.4); TROPONIN I 0.036 ng/mL (0.00-0.120)
[2019-01-06] MEDS ORDERED: Calcium Gluconate 4.65 MEQ in Dextrose 5% In Water 100 ML IVPB ONE (06:06)
[2019-01-06] MEDS ORDERED: Calcium Gluconate 4.65 mEq/10 ml Inj ONE (06:17)
[2019-01-06 08:32] LABS: FREE T4 1.06 ng/dL (0.78-2.19)
--- NOTE | 2019-01-06 08:47 | CP.PCM.HP ---
History of Present Illness - History of Present Illness History of Present Illness: pt came to ed for sob wheesing not improving with med and chest pain sob Present on Admission - Present on Admission Any Indicators Present on Admission: Yes Review of Systems - Review of Systems Systems not reviewed;Unavailable: Acuity of Condition, Respiratory Distress - Constitutional Constitutional: Fatigue - EENT Eyes: Blind Spots Ears: As Per HPI Nose/Mouth/Throat: As Per HPI - Cardiovascular Cardiovascular: Chest Pain at Rest, Dyspnea - Respiratory Respiratory: Dyspnea, Wheezing - Gastrointestinal Gastrointestinal: As Per HPI - Genitourinary Genitourinary: As Per HPI - Reproductive: Male Additional comments: klinfilter - Musculoskeletal Additional comments: s/p bilateral amputation - Integumentary Integumentary: As Per HPI - Neurological Neurological: Loss of Vision, Paresthesias - Psychiatric Psychiatric: Depression - Endocrine Endocrine: Cold Intolorance Additional Comments: dmid - Hematologic/Lymphatic Additional comments: aneamia Past Patient History - Infectious Disease Hx of Infectious Diseases: None - Tetanus Immunizations Tetanus Immunization: >10 years Ago - Past Medical History & Family History Past Medical History?: Yes - Past Social History Smoking Status: Former Smoker - CARDIAC Hx Atrial Fibrillation: Yes Hx Cardia Arrhythmia: Yes Hx Congestive Heart Failure: Yes Hx Hypercholesterolemia: Yes Hx Hypertension: Yes - PULMONARY Hx Asthma: Yes Hx Bronchitis: Yes Hx Chronic Obstructive Pulmonary Disease (COPD): Yes Hx Pneumonia: Yes Hx Pulmonary Embolism: Yes - NEUROLOGICAL Hx Alzheimer's Disease: Yes Hx Seizures: Yes - HEENT Hx HEENT Problems: Yes Hx Blind: Yes Hx Cataracts: Yes - RENAL Hx Chronic Kidney Disease: Yes Hx Kidney Stones: Yes - ENDOCRINE/METABOLIC Hx Hyperthyroidism: No Hx Hypothyroidism: Yes - HEMATOLOGICAL/ONCOLOGICAL Hx Anemia: Yes - INTEGUMENTARY Hx Dermatological Problems: No - MUSCULOSKELETAL/RHEUMATOLOGICAL Hx Arthritis: Yes - GASTROINTESTINAL Hx Gall Bladder Disease: Yes Hx Gastritis: Yes - GENITOURINARY/GYNECOLOGICAL Hx Sexually Transmitted Disorders: No - PSYCHIATRIC Hx Anxiety: Yes Hx Depression: Yes Hx Substance Use: No - SURGICAL HISTORY Hx Cholecystectomy: Yes (2011) 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/2009) Hx Coronary Stent: Yes - ANESTHESIA Hx Anesthesia: Yes Hx Anesthesia Reactions: No Hx Malignant Hyperthermia: No Meds Allergies/Adverse Reactions: Allergies Allergy/AdvReac Type Severity Reaction Status Date / Time acetaminophen [From Percocet] Allergy RASH Verified 01/06/19 03:13 atenolol Allergy RASH Verified 01/06/19 03:13 digoxin Allergy RASH Verified 01/06/19 03:13 milk Allergy ITCHING Verified 01/06/19 03:13 morphine Allergy RASH Verified 01/06/19 03:13 oxycodone HCl [From Percocet] Allergy RASH Verified 01/06/19 03:13 eggs Allergy Uncoded 01/06/19 03:13 Physical Exam - Constitutional Appears: In Acute Distress - Head Exam Head Exam: ATRAUMATIC - Eye Exam Eye Exam: Conjunctival injection Additional comments: blind - ENT Exam ENT Exam: Mucous Membranes Moist - Neck Exam Neck exam: Positive for: Full Rom - Respiratory Exam Respiratory Exam: Decreased Breath Sounds, Wheezes - Cardiovascular Exam Cardiovascular Exam: REGULAR RHYTHM - GI/Abdominal Exam GI & Abdominal Exam: Normal Bowel Sounds - Rectal Exam Rectal Exam: Deferred - Exam Exam: NORMAL INSPECTION - Extremities Exam Additional comments: s/p bilateral amputation - Back Exam Back exam: NORMAL INSPECTION - Neurological Exam Neurological exam: Alert, Oriented x3 - Psychiatric Exam Psychiatric exam: Normal Affect - Skin Skin Exam: Pallor Results - Vital Signs Recent Vital Signs: Last Vital Signs Temp 98.8 F 01/06/19 06:35 Pulse 72 01/06/19 08:37 Resp 12 01/06/19 08:37 BP 139/46 L 01/06/19 08:37 Pulse Ox 98 01/06/19 08:37 - Labs Result Diagrams: 01/06/19 05:25 01/06/19 05:06 Labs: Laboratory Results - last 24 hr 01/06/19 01/06/19 01/06/19 05:02 05:06 05:07 WBC RBC Hgb Hct MCV MCH MCHC RDW Plt Count MPV Neut % (Auto) Lymph % (Auto) [place] % (Auto) Eos % (Auto) Baso % (Auto) Neut # (Auto) Lymph # (Auto) [place] # (Auto) Eos # (Auto) Baso # (Auto) PT 12.9 H INR 1.2 APTT 29.0 pO2 37 VBG pH 7.32 VBG pCO2 48 VBG HCO3 22.6 VBG Total CO2 26.2 VBG O2 Sat (Calc) 55.9 VBG Base Excess -1.8 L VBG Potassium 6.1 H Sodium 137.0 140 Chloride 103.0 103 Glucose 330 H Lactate 1.2 Potassium 6.5 H* Carbon Dioxide 21 L Anion Gap 23 H BUN 79 H Creatinine 7.0 H Est GFR ( Amer) 11 Est GFR (Non-Af Amer) 9 Random Glucose 299 H D Calcium 9.5 Magnesium 2.1 Total Bilirubin 1.0 AST 60 H D ALT 26 Alkaline Phosphatase 190 H D Troponin I 0.0360 NT-Pro-B Natriuret Pep 33836 H Total Protein 8.3 Albumin 4.5 Globulin 3.8 Albumin/Globulin Ratio 1.2 Free T4 Venous Blood Potassium 6.1 H 01/06/19 01/06/19 05:25 07:42 WBC 12.8 H RBC 3.84 L Hgb 10.8 L D Hct 34.1 L MCV 88.7 MCH 28.0 MCHC 31.6 L RDW 20.4 H Plt Count 184 MPV 9.1 Neut % (Auto) 70.9 Lymph % (Auto) 21.1 [place] % (Auto) 4.5 Eos % (Auto) 2.8 Baso % (Auto) 0.7 Neut # (Auto) 9.1 H Lymph # (Auto) 2.7 [place] # (Auto) 0.6 Eos # (Auto) 0.4 Baso # (Auto) 0.1 PT INR APTT pO2 VBG pH VBG pCO2 VBG HCO3 VBG Total CO2 VBG O2 Sat (Calc) VBG Base Excess VBG Potassium Sodium Chloride Glucose Lactate Potassium Carbon Dioxide Anion Gap BUN Creatinine Est GFR ( Amer) Est GFR (Non-Af Amer) Random Glucose Calcium Magnesium Total Bilirubin AST ALT Alkaline Phosphatase Troponin I NT-Pro-B Natriuret Pep Total Protein Albumin Globulin Albumin/Globulin Ratio Free T4 1.06 Venous Blood Potassium Assessment & Plan - Assessment and Plan (Free Text) Assessment: ac exacerbation of asthma ac chest pain cad esrf aneamia dmid Plan: as ordered - Date & Time Date: 01/06/19 Time: 08:52
[2019-01-06] MEDS ORDERED: Albuterol-Ipratrop 3 mg / 0.5 (3 ml) UD ONE (09:18)
[2019-01-06] MEDS: Albuterol-Ipratrop 3 mg / 0.5 (3 ml) UD IH SCH ×3 (09:20→21:23)
[2019-01-06] MEDS ORDERED: Digoxin 125 mcg (0.125 mg) Tab PO SCH (10:00)
--- NOTE | 2019-01-06 11:42 | RAD ---
HISTORY: SOB COMPARISON: Chest x-ray performed 12/28/18 TECHNIQUE: Chest, one view. FINDINGS: Right IJ approach catheter extends to the proximal right atrium. LUNGS: Mild interstitial prominence may reflect infection or edema. Mild biapical pleural thickening. No focal consolidation. Please note that chest x-ray has limited sensitivity for the detection of pulmonary masses. PLEURA: No significant pleural effusion identified. No definite pneumothorax . CARDIOVASCULAR: Median sternotomy wires. Cardiomegaly. Atherosclerotic calcifications present. OSSEOUS STRUCTURES: Osseous demineralization. Degenerative changes. VISUALIZED UPPER ABDOMEN: Unremarkable. OTHER FINDINGS: None. IMPRESSION: Right IJ approach catheter extends to the proximal right atrium. Mild interstitial prominence may reflect infection or edema. Mild biapical pleural thickening. Median sternotomy wires. Cardiomegaly. Atherosclerotic calcifications present.
[2019-01-06] MEDS: Ranolazine 500 mg Extended Release Tablets PO SCH ×2 (14:52→17:51)
[2019-01-06] MEDS ORDERED: FOLIC ACID PO SCH (22:00)
[2019-01-06] MEDS ORDERED: VIT B COMPLEX AND C PO SCH (22:00)
[2019-01-06] MEDS ORDERED: (Lantus) Insulin Glargine, Recombinant SC SCH (22:00)
[2019-01-07] MEDS: Albuterol-Ipratrop 3 mg / 0.5 (3 ml) UD IH SCH ×7 (00:40→23:41)
[2019-01-07] MEDS: Levothyroxine 50 MCG TAB PO SCH (07:05)
[2019-01-07] MEDS: Multivitamin Vitamin B Complex (Nephro-Vite) Tab PO SCH (09:35)
[2019-01-07] MEDS: Ranolazine 500 mg Extended Release Tablets PO SCH ×2 (09:36→17:21)
--- NOTE | 2019-01-07 10:11 | CP.PCM.PN ---
Subjective - Date & Time of Evaluation Date of Evaluation: 01/07/19 Time of Evaluation: 10:08 - Subjective Subjective: less sob bs hi today no chest pain Objective - Vital Signs/Intake and Output Vital Signs (last 24 hours): Temp Pulse Resp BP Pulse Ox 97.9 F 67 20 121/64 97 01/07/19 07:30 01/07/19 07:30 01/07/19 07:30 01/07/19 09:38 01/07/19 07:30 Intake and Output: 01/07/19 01/07/19 06:59 18:59 Intake Total 350 Balance 350 - Medications Medications: Current Medications Albuterol/Ipratropium (Duoneb 3 Mg/0.5 Mg (3 Ml) Ud) 3 ml IH Q4 [facility] Last Admin: 01/07/19 09:20 Dose: 3 ml Alprazolam (Xanax) 0.25 mg PO BID PRN PRN Reason: Anxiety Stop: 01/13/19 07:16 Amiodarone HCl (Cordarone) 200 mg PO DAILY [facility] Last Admin: 01/07/19 09:37 Dose: 200 mg Apixaban (Eliquis) 2.5 mg PO BID [facility] Last Admin: 01/07/19 09:37 Dose: 2.5 mg Carvedilol (Coreg) 25 mg PO BID [facility] Last Admin: 01/07/19 09:38 Dose: 25 mg Cinacalcet (Sensipar) 30 mg PO DAILY [facility] Last Admin: 01/07/19 09:35 Dose: 30 mg Clonidine HCl (Catapres) 0.1 mg PO Q8 [facility] Digoxin (Digoxin) 0.125 mg PO DAILY@1800 [facility] Diphenhydramine HCl (Benadryl) 25 mg PO TID PRN PRN Reason: Itching / Pruritus Heparin Sodium (Porcine) (Heparin (For Dialysis)) 3,700 units IVP TTS [facility] Last Admin: 01/06/19 12:38 Dose: 3,700 units Insulin Glargine (Lantus) 10 unit SC Q12 [facility] Isosorbide Mononitrate (Imdur Er) 30 mg PO DAILY [facility] Last Admin: 01/07/19 09:37 Dose: 30 mg Levothyroxine Sodium (Synthroid) 50 mcg PO DAILY@0630 [facility] Last Admin: 01/07/19 07:05 Dose: 50 mcg Montelukast Sodium (Singulair) 10 mg PO DAILY [facility] Last Admin: 01/07/19 09:35 Dose: 10 mg Ranolazine (Ranexa) 500 mg PO BID [facility] Last Admin: 01/07/19 09:36 Dose: 500 mg Tramadol HCl (Ultram) 50 mg PO BID PRN PRN Reason: pain Last Admin: 01/07/19 03:15 Dose: 50 mg Vitamin B Complex/Vit C/Folic Acid (Nephro-Courtney) 1 tab PO DAILY [facility] Last Admin: 01/07/19 09:35 Dose: 1 tab - Labs Labs: 01/06/19 05:25 01/06/19 05:06 PT 12.9 SECONDS (9.7-12.2) H 01/06/19 05:07 INR 1.2 01/06/19 05:07 APTT 29.0 SECONDS (21-34) 01/06/19 05:07 - Constitutional Appears: Non-toxic - Head Exam Head Exam: ATRAUMATIC - Eye Exam Eye Exam: Conjunctival injection - ENT Exam ENT Exam: Mucous Membranes Moist - Neck Exam Neck Exam: Full ROM - Respiratory Exam Respiratory Exam: Decreased Breath Sounds, Rhonchi - Cardiovascular Exam Cardiovascular Exam: REGULAR RHYTHM - GI/Abdominal Exam GI & Abdominal Exam: Normal Bowel Sounds - Rectal Exam Rectal Exam: Deferred - Exam Exam: NORMAL INSPECTION Additional comments: bilateral amputation - Back Exam Back Exam: NORMAL INSPECTION - Neurological Exam Neurological Exam: Alert, Awake, Oriented x3 - Psychiatric Exam Psychiatric exam: Normal Affect - Skin Skin Exam: Pallor Assessment and Plan - Assessment and Plan (Free Text) Assessment: exacerbation dmid uncontroled esrf aneamia s/p seizer Plan: continu as ordered increase insulin
[2019-01-07] MEDS: (Lantus) Insulin Glargine, Recombinant SC SCH ×2 (11:50→22:07)
--- NOTE | 2019-01-07 16:40 | CP.PCM.CON ---
History of Present Illness - History of Present Illness History of Present Illness: CC: CHF HPI: 38 year old transgender woman 1. ESRD on HD 2. ASHD severe s/p CABG and PCI, non revascularizable 3. Angina chronic and stable on ranexa 4. Coagulopathy RV thrombus on Eliquis 5. Atrial fibrillation chronic and stable on amiodarone for rhythmon control, NOAC Past Patient History - Infectious Disease Hx of Infectious Diseases: None - Tetanus Immunizations Tetanus Immunization: >10 years Ago - Past Medical History & Family History Past Medical History?: Yes - Past Social History Smoking Status: Former Smoker - CARDIAC Hx Atrial Fibrillation: Yes Hx Cardia Arrhythmia: Yes Hx Congestive Heart Failure: Yes Hx Hypercholesterolemia: Yes Hx Hypertension: Yes - PULMONARY Hx Asthma: Yes Hx Bronchitis: Yes Hx Chronic Obstructive Pulmonary Disease (COPD): Yes Hx Pneumonia: Yes Hx Pulmonary Embolism: Yes - NEUROLOGICAL Hx Alzheimer's Disease: Yes Hx Seizures: Yes - HEENT Hx HEENT Problems: Yes Hx Blind: Yes Hx Cataracts: Yes - RENAL Hx Chronic Kidney Disease: Yes Hx Kidney Stones: Yes - ENDOCRINE/METABOLIC Hx Hyperthyroidism: No Hx Hypothyroidism: Yes - HEMATOLOGICAL/ONCOLOGICAL Hx Anemia: Yes - INTEGUMENTARY Hx Dermatological Problems: No - MUSCULOSKELETAL/RHEUMATOLOGICAL Hx Arthritis: Yes - GASTROINTESTINAL Hx Gall Bladder Disease: Yes Hx Gastritis: Yes - GENITOURINARY/GYNECOLOGICAL Hx Sexually Transmitted Disorders: No - PSYCHIATRIC Hx Anxiety: Yes Hx Depression: Yes Hx Substance Use: No - SURGICAL HISTORY Hx Cholecystectomy: Yes (2011) 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/2009) Hx Coronary Stent: Yes - ANESTHESIA Hx Anesthesia: Yes Hx Anesthesia Reactions: No Hx Malignant Hyperthermia: No Meds Allergies/Adverse Reactions: Allergies Allergy/AdvReac Type Severity Reaction Status Date / Time acetaminophen [From Percocet] Allergy RASH Verified 01/06/19 03:13 atenolol Allergy RASH Verified 01/06/19 03:13 digoxin Allergy RASH Verified 01/06/19 03:13 milk Allergy ITCHING Verified 01/06/19 03:13 morphine Allergy RASH Verified 01/06/19 03:13 oxycodone HCl [From Percocet] Allergy RASH Verified 01/06/19 03:13 eggs Allergy Uncoded 01/06/19 03:13 - Medications Medications: Current Medications Albuterol/Ipratropium (Duoneb 3 Mg/0.5 Mg (3 Ml) Ud) 3 ml IH Q4 [facility] Last Admin: 01/07/19 16:31 Dose: Not Given Alprazolam (Xanax) 0.25 mg PO BID PRN PRN Reason: Anxiety Stop: 01/13/19 07:16 Amiodarone HCl (Cordarone) 200 mg PO DAILY [facility] Last Admin: 01/07/19 09:37 Dose: 200 mg Apixaban (Eliquis) 2.5 mg PO BID [facility] Last Admin: 01/07/19 09:37 Dose: 2.5 mg Carvedilol (Coreg) 25 mg PO BID [facility] Last Admin: 01/07/19 09:38 Dose: 25 mg Cinacalcet (Sensipar) 30 mg PO DAILY [facility] Last Admin: 01/07/19 09:35 Dose: 30 mg Clonidine HCl (Catapres) 0.1 mg PO Q8 [facility] Last Admin: 01/07/19 13:12 Dose: Not Given Digoxin (Digoxin) 0.125 mg PO DAILY@1800 [facility] Diphenhydramine HCl (Benadryl) 25 mg PO TID PRN PRN Reason: Itching / Pruritus Heparin Sodium (Porcine) (Heparin (For Dialysis)) 3,700 units IVP TTS [facility] Last Admin: 01/06/19 12:38 Dose: 3,700 units Insulin Glargine (Lantus) 10 unit SC Q12 [facility] Last Admin: 01/07/19 11:50 Dose: 10 units Isosorbide Mononitrate (Imdur Er) 30 mg PO DAILY [facility] Last Admin: 01/07/19 09:37 Dose: 30 mg Levothyroxine Sodium (Synthroid) 50 mcg PO DAILY@0630 [facility] Last Admin: 01/07/19 07:05 Dose: 50 mcg Montelukast Sodium (Singulair) 10 mg PO DAILY [facility] Last Admin: 01/07/19 09:35 Dose: 10 mg Ranolazine (Ranexa) 500 mg PO BID [facility] Last Admin: 01/07/19 09:36 Dose: 500 mg Tramadol HCl (Ultram) 50 mg PO BID PRN PRN Reason: pain Last Admin: 01/07/19 03:15 Dose: 50 mg Vitamin B Complex/Vit C/Folic Acid (Nephro-Courtney) 1 tab PO DAILY [facility] Last Admin: 01/07/19 09:35 Dose: 1 tab Physical Exam - Constitutional Appears: Well, Non-toxic - Head Exam Head Exam: ATRAUMATIC, NORMAL INSPECTION - Eye Exam Eye Exam: PERRL Additional comments: Legal blindness - ENT Exam ENT Exam: Mucous Membranes Moist, Normal External Ear Exam - Neck Exam Neck exam: Positive for: Full Rom. Negative for: Thyromegaly - Respiratory Exam Respiratory Exam: Clear to Auscultation Bilateral, NORMAL BREATHING PATTERN - Cardiovascular Exam Cardiovascular Exam: REGULAR RHYTHM, RRR, +S1, +S2, Systolic Murmur. absent: JVD Additional comments: +Sternotomy + Bilateral BKA with skin break down - GI/Abdominal Exam GI & Abdominal Exam: Normal Bowel Sounds. absent: Organomegaly - Neurological Exam Neurological exam: CN II-XII Intact, Oriented x3 - Psychiatric Exam Psychiatric exam: Normal Mood Additional comments: Developmental delay Results - Vital Signs Recent Vital Signs: Last Vital Signs Temp 97.9 F 01/07/19 07:30 Pulse 64 01/07/19 13:33 Resp 20 01/07/19 07:30 BP 121/64 01/07/19 09:38 Pulse Ox 97 01/07/19 07:30 - Labs Result Diagrams: 01/06/19 05:25 01/06/19 05:06 Labs: Laboratory Results - last 24 hr 01/06/19 01/06/19 01/07/19 11:44 20:59 06:33 POC Glucose (mg/dL) 263 H 396 H 343 H - EKG Data EKG Interpreted by: Myself EKG shows normal: Sinus rhythm Rate: Normal - Imaging and Cardiology Chest x-ray Status: Image reviewed by me Additional comment: Sternotomy wires; +Permcath Assessment & Plan - Assessment and Plan (Free Text) Assessment: 38 year old woman with acute diastolic CHF now improved with HD ESRD chronic and stable needs better compliance Angina stable on ranexa, Nitro PRN ASHD high dose statin, aspirin, Eliquis Coagulopathy stable Eliquis 5 BID Diabetes is brittle, labile control
[2019-01-07] MEDS: Digoxin 125 mcg (0.125 mg) Tab PO SCH (17:21)
--- NOTE | 2019-01-08 01:15 | CARD ---
APPROVED REPORT Date of service: 01/06/2019 EKG Measurement Heart [id number] <Conclusion> Normal sinus rhythm Possible Left atrial enlargement Marked ST abnormality, possible lateral subendocardial injury Abnormal ECG
[2019-01-08] MEDS: Albuterol-Ipratrop 3 mg / 0.5 (3 ml) UD IH SCH ×6 (03:27→23:41)
[2019-01-08] MEDS: Levothyroxine 50 MCG TAB PO SCH (05:59)
--- NOTE | 2019-01-08 08:13 | CP.PCM.PN ---
Objective - Vital Signs/Intake and Output Vital Signs (last 24 hours): Temp Pulse Resp BP Pulse Ox 97.5 F L 60 20 98/55 L 99 01/08/19 07:30 01/08/19 07:30 01/08/19 07:30 01/08/19 07:30 01/08/19 07:30 Intake and Output: 01/08/19 01/08/19 06:59 18:59 Intake Total 240 Balance 240 - Medications Medications: Current Medications Albuterol/Ipratropium (Duoneb 3 Mg/0.5 Mg (3 Ml) Ud) 3 ml IH Q4 [facility] Last Admin: 01/08/19 03:27 Dose: Not Given Alprazolam (Xanax) 0.25 mg PO BID PRN PRN Reason: Anxiety Stop: 01/13/19 07:16 Amiodarone HCl (Cordarone) 200 mg PO DAILY [facility] Last Admin: 01/07/19 09:37 Dose: 200 mg Apixaban (Eliquis) 2.5 mg PO BID [facility] Last Admin: 01/07/19 17:21 Dose: 2.5 mg Carvedilol (Coreg) 25 mg PO BID [facility] Last Admin: 01/07/19 22:07 Dose: 25 mg Cinacalcet (Sensipar) 30 mg PO DAILY [facility] Last Admin: 01/07/19 09:35 Dose: 30 mg Clonidine HCl (Catapres) 0.1 mg PO Q8 [facility] Last Admin: 01/08/19 05:59 Dose: 0.1 mg Digoxin (Digoxin) 0.125 mg PO DAILY@1800 [facility] Last Admin: 01/07/19 17:21 Dose: 0.125 mg Diphenhydramine HCl (Benadryl) 25 mg PO TID PRN PRN Reason: Itching / Pruritus Heparin Sodium (Porcine) (Heparin (For Dialysis)) 3,700 units IVP TTS [facility] Last Admin: 01/06/19 12:38 Dose: 3,700 units Insulin Glargine (Lantus) 10 unit SC Q12 [facility] Last Admin: 01/07/19 22:07 Dose: 10 units Isosorbide Mononitrate (Imdur Er) 30 mg PO DAILY [facility] Last Admin: 01/07/19 09:37 Dose: 30 mg Levothyroxine Sodium (Synthroid) 50 mcg PO DAILY@0630 [facility] Last Admin: 01/08/19 05:59 Dose: 50 mcg Montelukast Sodium (Singulair) 10 mg PO DAILY [facility] Last Admin: 01/07/19 09:35 Dose: 10 mg Ranolazine (Ranexa) 500 mg PO BID [facility] Last Admin: 01/07/19 17:21 Dose: 500 mg Tramadol HCl (Ultram) 50 mg PO BID PRN PRN Reason: pain Last Admin: 01/08/19 05:59 Dose: 50 mg Vitamin B Complex/Vit C/Folic Acid (Nephro-Courtney) 1 tab PO DAILY [facility] Last Admin: 01/07/19 09:35 Dose: 1 tab - Labs Labs: 01/06/19 05:25 01/06/19 05:06 PT 12.9 SECONDS (9.7-12.2) H 01/06/19 05:07 INR 1.2 01/06/19 05:07 APTT 29.0 SECONDS (21-34) 01/06/19 05:07
[2019-01-08] MEDS: Ranolazine 500 mg Extended Release Tablets PO SCH ×3 (10:21→17:56)
[2019-01-08] MEDS: Multivitamin Vitamin B Complex (Nephro-Vite) Tab PO SCH (10:21)
[2019-01-08] MEDS: (Lantus) Insulin Glargine, Recombinant SC SCH ×2 (10:21→21:50)
[2019-01-08 10:41] LABS: CALCIUM 8.4 mg/dl (8.6-10.4)
--- NOTE | 2019-01-08 16:43 | CP.PCM.PN ---
Subjective - Date & Time of Evaluation Date of Evaluation: 01/08/19 Time of Evaluation: 16:39 - Subjective Subjective: pt feels beter no sob had dialysis today wants to go home Objective - Vital Signs/Intake and Output Vital Signs (last 24 hours): Temp Pulse Resp BP Pulse Ox 97.9 F 61 18 143/50 L 100 01/08/19 15:30 01/08/19 16:12 01/08/19 15:30 01/08/19 15:30 01/08/19 15:30 Intake and Output: 01/08/19 01/08/19 06:59 18:59 Intake Total 240 Balance 240 - Medications Medications: Current Medications Albuterol/Ipratropium (Duoneb 3 Mg/0.5 Mg (3 Ml) Ud) 3 ml IH Q4 [facility] Last Admin: 01/08/19 11:16 Dose: Not Given Alprazolam (Xanax) 0.25 mg PO BID PRN PRN Reason: Anxiety Stop: 01/13/19 07:16 Amiodarone HCl (Cordarone) 200 mg PO DAILY [facility] Last Admin: 01/08/19 10:21 Dose: Not Given Apixaban (Eliquis) 2.5 mg PO BID [facility] Last Admin: 01/08/19 10:21 Dose: Not Given Carvedilol (Coreg) 25 mg PO BID [facility] Last Admin: 01/08/19 10:21 Dose: Not Given Cinacalcet (Sensipar) 30 mg PO DAILY [facility] Last Admin: 01/08/19 10:21 Dose: Not Given Clonidine HCl (Catapres) 0.1 mg PO Q8 [facility] Last Admin: 01/08/19 14:02 Dose: Not Given Digoxin (Digoxin) 0.125 mg PO DAILY@1800 [facility] Last Admin: 01/07/19 17:21 Dose: 0.125 mg Diphenhydramine HCl (Benadryl) 25 mg PO TID PRN PRN Reason: Itching / Pruritus Heparin Sodium (Porcine) (Heparin (For Dialysis)) 3,700 units IVP TTS [facility] Last Admin: 01/08/19 10:58 Dose: 3,700 units Insulin Glargine (Lantus) 10 unit SC Q12 [facility] Last Admin: 01/08/19 10:21 Dose: Not Given Isosorbide Mononitrate (Imdur Er) 30 mg PO DAILY [facility] Last Admin: 01/08/19 10:21 Dose: Not Given Levothyroxine Sodium (Synthroid) 50 mcg PO DAILY@0630 [facility] Last Admin: 01/08/19 05:59 Dose: 50 mcg Montelukast Sodium (Singulair) 10 mg PO DAILY [facility] Last Admin: 01/08/19 10:21 Dose: Not Given Ranolazine (Ranexa) 500 mg PO BID [facility] Last Admin: 01/08/19 10:21 Dose: Not Given Tramadol HCl (Ultram) 50 mg PO BID PRN PRN Reason: pain Last Admin: 01/08/19 05:59 Dose: 50 mg Vitamin B Complex/Vit C/Folic Acid (Nephro-Courtney) 1 tab PO DAILY [facility] Last Admin: 01/08/19 10:21 Dose: Not Given - Labs Labs: 01/06/19 05:25 01/08/19 10:16 PT 12.9 SECONDS (9.7-12.2) H 01/06/19 05:07 INR 1.2 01/06/19 05:07 APTT 29.0 SECONDS (21-34) 01/06/19 05:07 - Constitutional Appears: Non-toxic - Head Exam Head Exam: ATRAUMATIC - Eye Exam Eye Exam: Conjunctival injection, Normal appearance - ENT Exam ENT Exam: Mucous Membranes Dry - Neck Exam Neck Exam: Full ROM - Respiratory Exam Respiratory Exam: Decreased Breath Sounds - Cardiovascular Exam Cardiovascular Exam: REGULAR RHYTHM - GI/Abdominal Exam GI & Abdominal Exam: Normal Bowel Sounds - Rectal Exam Rectal Exam: Deferred - Back Exam Back Exam: NORMAL INSPECTION - Neurological Exam Neurological Exam: Awake, Oriented x3 Neuro motor strength exam: Right Lower Extremity: 5 (amputation) Additional comments: bilateral amputation - Psychiatric Exam Psychiatric exam: Normal Affect - Skin Skin Exam: Pallor Assessment and Plan - Assessment and Plan (Free Text) Assessment: ac exacerbation asthma improved cad chf esrf dmid stable Plan: will d/c home today f/u outpt
[2019-01-08] MEDS: Digoxin 125 mcg (0.125 mg) Tab PO SCH ×2 (17:44→17:57)
[2019-01-08 17:58] VITALS: PULSE 47
[2019-01-08 19:24] VITALS: RESP 20
[2019-01-08 20:01] LABS: CALCIUM 9.1 mg/dl (8.6-10.4)
[2019-01-09] MEDS: Albuterol-Ipratrop 3 mg / 0.5 (3 ml) UD IH SCH ×3 (03:14→12:43)
[2019-01-09] MEDS: Levothyroxine 50 MCG TAB PO SCH (06:32)
[2019-01-09 08:29] VITALS: TEMP 97.2; O2SAT 95
--- NOTE | 2019-01-09 09:51 | CP.PCM.PN ---
Subjective - Date & Time of Evaluation Date of Evaluation: 01/09/19 Time of Evaluation: 09:48 - Subjective Subjective: pt feels beter no sob no pain ht rate is regular normal today had zaida cardia last night will d/c dig and discused with cardiology can be discharged today Objective - Vital Signs/Intake and Output Vital Signs (last 24 hours): Temp Pulse Resp BP Pulse Ox 97.2 F L 52 L 20 130/79 95 01/09/19 08:27 01/09/19 08:27 01/09/19 08:27 01/09/19 08:27 01/09/19 08:27 Intake and Output: 01/09/19 01/09/19 06:59 18:59 Intake Total 360 Balance 360 - Medications Medications: Current Medications Albuterol/Ipratropium (Duoneb 3 Mg/0.5 Mg (3 Ml) Ud) 3 ml IH Q4 [facility] Last Admin: 01/09/19 08:45 Dose: Not Given Alprazolam (Xanax) 0.25 mg PO BID PRN PRN Reason: Anxiety Stop: 01/13/19 07:16 Last Admin: 01/09/19 01:36 Dose: 0.25 mg Amiodarone HCl (Cordarone) 200 mg PO DAILY [facility] Last Admin: 01/08/19 10:21 Dose: Not Given Apixaban (Eliquis) 2.5 mg PO BID [facility] Last Admin: 01/08/19 17:44 Dose: 2.5 mg Carvedilol (Coreg) 25 mg PO BID [facility] Cinacalcet (Sensipar) 30 mg PO DAILY [facility] Last Admin: 01/08/19 10:21 Dose: Not Given Clonidine HCl (Catapres) 0.1 mg PO Q8 [facility] Last Admin: 01/09/19 06:31 Dose: 0.1 mg Diphenhydramine HCl (Benadryl) 25 mg PO TID PRN PRN Reason: Itching / Pruritus Heparin Sodium (Porcine) (Heparin (For Dialysis)) 3,700 units IVP TTS [facility] Last Admin: 01/08/19 10:58 Dose: 3,700 units Insulin Glargine (Lantus) 10 unit SC Q12 [facility] Last Admin: 01/08/19 21:50 Dose: Not Given Isosorbide Mononitrate (Imdur Er) 30 mg PO DAILY [facility] Last Admin: 01/08/19 10:21 Dose: Not Given Levothyroxine Sodium (Synthroid) 50 mcg PO DAILY@0630 [facility] Last Admin: 01/09/19 06:32 Dose: 50 mcg Montelukast Sodium (Singulair) 10 mg PO DAILY [facility] Last Admin: 01/08/19 10:21 Dose: Not Given Ranolazine (Ranexa) 500 mg PO BID [facility] Last Admin: 01/08/19 17:56 Dose: 500 mg Tramadol HCl (Ultram) 50 mg PO BID PRN PRN Reason: pain Last Admin: 01/08/19 05:59 Dose: 50 mg Vitamin B Complex/Vit C/Folic Acid (Nephro-Courtney) 1 tab PO DAILY [facility] Last Admin: 01/08/19 10:21 Dose: Not Given - Labs Labs: 01/06/19 05:25 01/08/19 19:38 PT 12.9 SECONDS (9.7-12.2) H 01/06/19 05:07 INR 1.2 01/06/19 05:07 APTT 29.0 SECONDS (21-34) 01/06/19 05:07 - Constitutional Appears: Well - Head Exam Head Exam: ATRAUMATIC - Eye Exam Eye Exam: Conjunctival injection Additional comments: blind - ENT Exam ENT Exam: Mucous Membranes Moist - Neck Exam Neck Exam: Full ROM - Respiratory Exam Respiratory Exam: NORMAL BREATHING PATTERN - Cardiovascular Exam Cardiovascular Exam: REGULAR RHYTHM - GI/Abdominal Exam GI & Abdominal Exam: Normal Bowel Sounds - Rectal Exam Rectal Exam: NORMAL INSPECTION - Exam Additional comments: klinfilter - Extremities Exam Additional comments: bilateral amputation - Back Exam Back Exam: NORMAL INSPECTION - Neurological Exam Neurological Exam: Alert, Awake, Oriented x3 - Psychiatric Exam Psychiatric exam: Normal Affect - Skin Skin Exam: Pallor Assessment and Plan - Assessment and Plan (Free Text) Assessment: ac asthma exacerbation improved chest pain cad stable bradycardia improved esrf cont dialysis aneamia dmid cont as ordered Plan: disch
[2019-01-09] MEDS: Multivitamin Vitamin B Complex (Nephro-Vite) Tab PO SCH (10:31)
[2019-01-09] MEDS: Ranolazine 500 mg Extended Release Tablets PO SCH (10:31)
[2019-01-09] MEDS: (Lantus) Insulin Glargine, Recombinant SC SCH (10:31)
[2019-01-09 11:29] VITALS: PULSE 64
--- NOTE | 2019-01-09 13:21 | CP.PCM.PN ---
Subjective - Date & Time of Evaluation Date of Evaluation: 01/09/19 Time of Evaluation: 13:21 - Subjective Subjective: pt seen and examined HD TTS advised to stop eating avocados due to their high K content Objective - Vital Signs/Intake and Output Vital Signs (last 24 hours): Temp Pulse Resp BP Pulse Ox 97.2 F L 64 20 135/78 95 01/09/19 08:27 01/09/19 11:27 01/09/19 08:27 01/09/19 10:23 01/09/19 08:27 Intake and Output: 01/09/19 01/09/19 06:59 18:59 Intake Total 360 Balance 360 - Medications Medications: Current Medications Albuterol/Ipratropium (Duoneb 3 Mg/0.5 Mg (3 Ml) Ud) 3 ml IH Q4 [facility] Last Admin: 01/09/19 12:43 Dose: Not Given Alprazolam (Xanax) 0.25 mg PO BID PRN PRN Reason: Anxiety Stop: 01/13/19 07:16 Last Admin: 01/09/19 01:36 Dose: 0.25 mg Amiodarone HCl (Cordarone) 200 mg PO DAILY [facility] Last Admin: 01/09/19 10:32 Dose: Not Given Apixaban (Eliquis) 2.5 mg PO BID [facility] Last Admin: 01/09/19 10:31 Dose: 2.5 mg Carvedilol (Coreg) 25 mg PO BID [facility] Last Admin: 01/09/19 10:23 Dose: Not Given Cinacalcet (Sensipar) 30 mg PO DAILY [facility] Last Admin: 01/09/19 10:32 Dose: 30 mg Clonidine HCl (Catapres) 0.1 mg PO Q8 [facility] Last Admin: 01/09/19 06:31 Dose: 0.1 mg Diphenhydramine HCl (Benadryl) 25 mg PO TID PRN PRN Reason: Itching / Pruritus Insulin Glargine (Lantus) 10 unit SC Q12 [facility] Last Admin: 01/09/19 10:31 Dose: 10 units Isosorbide Mononitrate (Imdur Er) 30 mg PO DAILY [facility] Last Admin: 01/09/19 10:32 Dose: Not Given Levothyroxine Sodium (Synthroid) 50 mcg PO DAILY@0630 [facility] Last Admin: 01/09/19 06:32 Dose: 50 mcg Montelukast Sodium (Singulair) 10 mg PO DAILY [facility] Last Admin: 01/09/19 10:30 Dose: 10 mg Ranolazine (Ranexa) 500 mg PO BID [facility] Last Admin: 01/09/19 10:31 Dose: 500 mg Tramadol HCl (Ultram) 50 mg PO BID PRN PRN Reason: pain Last Admin: 01/08/19 05:59 Dose: 50 mg Vitamin B Complex/Vit C/Folic Acid (Nephro-Courtney) 1 tab PO DAILY [facility] Last Admin: 01/09/19 10:31 Dose: 1 tab - Labs Labs: 01/06/19 05:25 01/08/19 19:38 PT 12.9 SECONDS (9.7-12.2) H 01/06/19 05:07 INR 1.2 01/06/19 05:07 APTT 29.0 SECONDS (21-34) 01/06/19 05:07
--- NOTE | 2019-01-09 13:21 | CP.PCM.PN ---
Subjective - Date & Time of Evaluation Date of Evaluation: 01/08/19 Time of Evaluation: 15:36 - Subjective Subjective: pt seen and examined HD TTS advised to stop eating avocados due to their high K content Objective - Vital Signs/Intake and Output Vital Signs (last 24 hours): Temp Pulse Resp BP Pulse Ox 97.2 F L 56 L 16 122/72 100 01/08/19 13:10 01/08/19 13:10 01/08/19 13:10 01/08/19 13:10 01/08/19 13:10 Intake and Output: 01/08/19 01/08/19 06:59 18:59 Intake Total 240 Balance 240 - Medications Medications: Current Medications Albuterol/Ipratropium (Duoneb 3 Mg/0.5 Mg (3 Ml) Ud) 3 ml IH Q4 [facility] Last Admin: 01/08/19 11:16 Dose: Not Given Alprazolam (Xanax) 0.25 mg PO BID PRN PRN Reason: Anxiety Stop: 01/13/19 07:16 Amiodarone HCl (Cordarone) 200 mg PO DAILY [facility] Last Admin: 01/08/19 10:21 Dose: Not Given Apixaban (Eliquis) 2.5 mg PO BID [facility] Last Admin: 01/08/19 10:21 Dose: Not Given Carvedilol (Coreg) 25 mg PO BID [facility] Last Admin: 01/08/19 10:21 Dose: Not Given Cinacalcet (Sensipar) 30 mg PO DAILY [facility] Last Admin: 01/08/19 10:21 Dose: Not Given Clonidine HCl (Catapres) 0.1 mg PO Q8 [facility] Last Admin: 01/08/19 14:02 Dose: Not Given Digoxin (Digoxin) 0.125 mg PO DAILY@1800 [facility] Last Admin: 01/07/19 17:21 Dose: 0.125 mg Diphenhydramine HCl (Benadryl) 25 mg PO TID PRN PRN Reason: Itching / Pruritus Heparin Sodium (Porcine) (Heparin (For Dialysis)) 3,700 units IVP TTS [facility] Last Admin: 01/08/19 10:58 Dose: 3,700 units Insulin Glargine (Lantus) 10 unit SC Q12 [facility] Last Admin: 01/08/19 10:21 Dose: Not Given Isosorbide Mononitrate (Imdur Er) 30 mg PO DAILY [facility] Last Admin: 01/08/19 10:21 Dose: Not Given Levothyroxine Sodium (Synthroid) 50 mcg PO DAILY@0630 [facility] Last Admin: 01/08/19 05:59 Dose: 50 mcg Montelukast Sodium (Singulair) 10 mg PO DAILY [facility] Last Admin: 01/08/19 10:21 Dose: Not Given Ranolazine (Ranexa) 500 mg PO BID [facility] Last Admin: 01/08/19 10:21 Dose: Not Given Tramadol HCl (Ultram) 50 mg PO BID PRN PRN Reason: pain Last Admin: 01/08/19 05:59 Dose: 50 mg Vitamin B Complex/Vit C/Folic Acid (Nephro-Courtney) 1 tab PO DAILY [facility] Last Admin: 01/08/19 10:21 Dose: Not Given - Labs Labs: 01/06/19 05:25 01/08/19 10:16 PT 12.9 SECONDS (9.7-12.2) H 01/06/19 05:07 INR 1.2 01/06/19 05:07 APTT 29.0 SECONDS (21-34) 01/06/19 05:07
--- NOTE | 2019-01-09 13:21 | CP.PCM.CON ---
History of Present Illness - History of Present Illness History of Present Illness: pt seen and examined HD TTS advised to stop eating avocados due to their high K content Past Patient History - Infectious Disease Hx of Infectious Diseases: None - Tetanus Immunizations Tetanus Immunization: >10 years Ago - Past Medical History & Family History Past Medical History?: Yes - Past Social History Smoking Status: Former Smoker - CARDIAC Hx Atrial Fibrillation: Yes Hx Cardia Arrhythmia: Yes Hx Congestive Heart Failure: Yes Hx Hypercholesterolemia: Yes Hx Hypertension: Yes - PULMONARY Hx Asthma: Yes Hx Bronchitis: Yes Hx Chronic Obstructive Pulmonary Disease (COPD): Yes Hx Pneumonia: Yes Hx Pulmonary Embolism: Yes - NEUROLOGICAL Hx Alzheimer's Disease: Yes Hx Seizures: Yes - HEENT Hx HEENT Problems: Yes Hx Blind: Yes Hx Cataracts: Yes - RENAL Hx Chronic Kidney Disease: Yes Hx Kidney Stones: Yes - ENDOCRINE/METABOLIC Hx Hyperthyroidism: No Hx Hypothyroidism: Yes - HEMATOLOGICAL/ONCOLOGICAL Hx Anemia: Yes - INTEGUMENTARY Hx Dermatological Problems: No - MUSCULOSKELETAL/RHEUMATOLOGICAL Hx Arthritis: Yes - GASTROINTESTINAL Hx Gall Bladder Disease: Yes Hx Gastritis: Yes - GENITOURINARY/GYNECOLOGICAL Hx Sexually Transmitted Disorders: No - PSYCHIATRIC Hx Anxiety: Yes Hx Depression: Yes Hx Substance Use: No - SURGICAL HISTORY Hx Cholecystectomy: Yes (2011) 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/2009) Hx Coronary Stent: Yes - ANESTHESIA Hx Anesthesia: Yes Hx Anesthesia Reactions: No Hx Malignant Hyperthermia: No Meds Allergies/Adverse Reactions: Allergies Allergy/AdvReac Type Severity Reaction Status Date / Time acetaminophen [From Percocet] Allergy RASH Verified 01/06/19 03:13 atenolol Allergy RASH Verified 01/06/19 03:13 digoxin Allergy RASH Verified 01/06/19 03:13 milk Allergy ITCHING Verified 01/06/19 03:13 morphine Allergy RASH Verified 01/06/19 03:13 oxycodone HCl [From Percocet] Allergy RASH Verified 01/06/19 03:13 eggs Allergy Uncoded 01/06/19 03:13 - Medications Medications: Current Medications Albuterol/Ipratropium (Duoneb 3 Mg/0.5 Mg (3 Ml) Ud) 3 ml IH Q4 [facility] Last Admin: 01/06/19 09:20 Dose: 3 ml Alprazolam (Xanax) 0.25 mg PO BID PRN PRN Reason: Anxiety Stop: 01/13/19 07:16 Amiodarone HCl (Cordarone) 200 mg PO DAILY [facility] Apixaban (Eliquis) 2.5 mg PO BID [facility] Carvedilol (Coreg) 25 mg PO BID [facility] Cinacalcet (Sensipar) 30 mg PO DAILY [facility] Clonidine HCl (Catapres) 0.2 mg PO TID [facility] Digoxin (Digoxin) 0.125 mg PO DAILY [facility] Diphenhydramine HCl (Benadryl) 25 mg PO TID PRN PRN Reason: Itching / Pruritus Heparin Sodium (Porcine) (Heparin (For Dialysis)) 3,700 units IVP TTS [facility] Home Med (Folic Acid/Vit B Complex And C [Dialyvite Tablet]) 1 tab PO HS [facility] Insulin Glargine (Lantus) 10 unit SC HS [facility] Isosorbide Mononitrate (Imdur Er) 30 mg PO DAILY [facility] Levothyroxine Sodium (Synthroid) 50 mcg PO DAILY@0630 [facility] Montelukast Sodium (Singulair) 10 mg PO DAILY [facility] Ranolazine (Ranexa) 500 mg PO BID [facility] Tramadol HCl (Ultram) 50 mg PO BID PRN PRN Reason: pain Results - Vital Signs Recent Vital Signs: Last Vital Signs Temp 97.8 F 01/06/19 10:10 Pulse 73 01/06/19 10:10 Resp 18 01/06/19 10:10 BP 143/92 H 01/06/19 11:10 Pulse Ox 99 01/06/19 10:10 - Labs Result Diagrams: 01/06/19 05:25 01/08/19 19:38 Labs: Laboratory Results - last 24 hr 01/06/19 01/06/19 01/06/19 05:02 05:06 05:07 WBC RBC Hgb Hct MCV MCH MCHC RDW Plt Count MPV Neut % (Auto) Lymph % (Auto) Reeves % (Auto) Eos % (Auto) Baso % (Auto) Neut # (Auto) Lymph # (Auto) Reeves # (Auto) Eos # (Auto) Baso # (Auto) PT 12.9 H INR 1.2 APTT 29.0 pO2 37 VBG pH 7.32 VBG pCO2 48 VBG HCO3 22.6 VBG Total CO2 26.2 VBG O2 Sat (Calc) 55.9 VBG Base Excess -1.8 L VBG Potassium 6.1 H Sodium 137.0 140 Chloride 103.0 103 Glucose 330 H Lactate 1.2 Potassium 6.5 H* Carbon Dioxide 21 L Anion Gap 23 H BUN 79 H Creatinine 7.0 H Est GFR ( Amer) 11 Est GFR (Non-Af Amer) 9 Random Glucose 299 H D Calcium 9.5 Magnesium 2.1 Total Bilirubin 1.0 AST 60 H D ALT 26 Alkaline Phosphatase 190 H D Troponin I 0.0360 NT-Pro-B Natriuret Pep 60514 H Total Protein 8.3 Albumin 4.5 Globulin 3.8 Albumin/Globulin Ratio 1.2 Free T4 TSH 3rd Generation Venous Blood Potassium 6.1 H 01/06/19 01/06/19 05:25 07:42 WBC 12.8 H RBC 3.84 L Hgb 10.8 L D Hct 34.1 L MCV 88.7 MCH 28.0 MCHC 31.6 L RDW 20.4 H Plt Count 184 MPV 9.1 Neut % (Auto) 70.9 Lymph % (Auto) 21.1 Reeves % (Auto) 4.5 Eos % (Auto) 2.8 Baso % (Auto) 0.7 Neut # (Auto) 9.1 H Lymph # (Auto) 2.7 Reeves # (Auto) 0.6 Eos # (Auto) 0.4 Baso # (Auto) 0.1 PT INR APTT pO2 VBG pH VBG pCO2 VBG HCO3 VBG Total CO2 VBG O2 Sat (Calc) VBG Base Excess VBG Potassium Sodium Chloride Glucose Lactate Potassium Carbon Dioxide Anion Gap BUN Creatinine Est GFR ( Amer) Est GFR (Non-Af Amer) Random Glucose Calcium Magnesium Total Bilirubin AST ALT Alkaline Phosphatase Troponin I NT-Pro-B Natriuret Pep Total Protein Albumin Globulin Albumin/Globulin Ratio Free T4 1.06 TSH 3rd Generation 2.62 Venous Blood Potassium
--- NOTE | 2019-01-09 13:21 | CP.PCM.PN ---
Subjective - Date & Time of Evaluation Date of Evaluation: 01/07/19 Time of Evaluation: 10:00 - Subjective Subjective: pt seen and examined HD as TTS Objective - Vital Signs/Intake and Output Vital Signs (last 24 hours): Temp Pulse Resp BP Pulse Ox 97.9 F 67 20 121/64 97 01/07/19 07:30 01/07/19 07:30 01/07/19 07:30 01/07/19 09:38 01/07/19 07:30 Intake and Output: 01/07/19 01/07/19 06:59 18:59 Intake Total 350 Balance 350 - Medications Medications: Current Medications Albuterol/Ipratropium (Duoneb 3 Mg/0.5 Mg (3 Ml) Ud) 3 ml IH Q4 [facility] Last Admin: 01/07/19 09:20 Dose: 3 ml Alprazolam (Xanax) 0.25 mg PO BID PRN PRN Reason: Anxiety Stop: 01/13/19 07:16 Amiodarone HCl (Cordarone) 200 mg PO DAILY [facility] Last Admin: 01/07/19 09:37 Dose: 200 mg Apixaban (Eliquis) 2.5 mg PO BID [facility] Last Admin: 01/07/19 09:37 Dose: 2.5 mg Carvedilol (Coreg) 25 mg PO BID [facility] Last Admin: 01/07/19 09:38 Dose: 25 mg Cinacalcet (Sensipar) 30 mg PO DAILY [facility] Last Admin: 01/07/19 09:35 Dose: 30 mg Clonidine HCl (Catapres) 0.1 mg PO Q8 [facility] Digoxin (Digoxin) 0.125 mg PO DAILY@1800 [facility] Diphenhydramine HCl (Benadryl) 25 mg PO TID PRN PRN Reason: Itching / Pruritus Heparin Sodium (Porcine) (Heparin (For Dialysis)) 3,700 units IVP TTS [facility] Last Admin: 01/06/19 12:38 Dose: 3,700 units Insulin Glargine (Lantus) 10 unit SC Q12 [facility] Last Admin: 01/07/19 11:50 Dose: 10 units Isosorbide Mononitrate (Imdur Er) 30 mg PO DAILY [facility] Last Admin: 01/07/19 09:37 Dose: 30 mg Levothyroxine Sodium (Synthroid) 50 mcg PO DAILY@0630 [facility] Last Admin: 01/07/19 07:05 Dose: 50 mcg Montelukast Sodium (Singulair) 10 mg PO DAILY [facility] Last Admin: 01/07/19 09:35 Dose: 10 mg Ranolazine (Ranexa) 500 mg PO BID [facility] Last Admin: 01/07/19 09:36 Dose: 500 mg Tramadol HCl (Ultram) 50 mg PO BID PRN PRN Reason: pain Last Admin: 01/07/19 03:15 Dose: 50 mg Vitamin B Complex/Vit C/Folic Acid (Nephro-Courtney) 1 tab PO DAILY [facility] Last Admin: 01/07/19 09:35 Dose: 1 tab - Labs Labs: 01/06/19 05:25 01/06/19 05:06 PT 12.9 SECONDS (9.7-12.2) H 01/06/19 05:07 INR 1.2 01/06/19 05:07 APTT 29.0 SECONDS (21-34) 01/06/19 05:07
[2019-01-09 13:48] VITALS: BP 136/72
--- NOTE | 2019-01-09 14:41 | CP.PCM.PN ---
Subjective - Date & Time of Evaluation Date of Evaluation: 01/09/19 Time of Evaluation: 08:00 - Subjective Subjective: Events reviewed. Sinus zaida, no symptoms. D/C Digoxin normal dig level Objective - Vital Signs/Intake and Output Vital Signs (last 24 hours): Temp Pulse Resp BP Pulse Ox 97.2 F L 64 20 136/72 95 01/09/19 08:27 01/09/19 11:27 01/09/19 08:27 01/09/19 13:35 01/09/19 08:27 Intake and Output: 01/09/19 01/09/19 06:59 18:59 Intake Total 360 Balance 360 - Medications Medications: Current Medications Albuterol/Ipratropium (Duoneb 3 Mg/0.5 Mg (3 Ml) Ud) 3 ml IH Q4 [facility] Last Admin: 01/09/19 12:43 Dose: Not Given Alprazolam (Xanax) 0.25 mg PO BID PRN PRN Reason: Anxiety Stop: 01/13/19 07:16 Last Admin: 01/09/19 01:36 Dose: 0.25 mg Amiodarone HCl (Cordarone) 200 mg PO DAILY [facility] Last Admin: 01/09/19 10:32 Dose: Not Given Apixaban (Eliquis) 2.5 mg PO BID [facility] Last Admin: 01/09/19 10:31 Dose: 2.5 mg Carvedilol (Coreg) 25 mg PO BID [facility] Last Admin: 01/09/19 10:23 Dose: Not Given Cinacalcet (Sensipar) 30 mg PO DAILY [facility] Last Admin: 01/09/19 10:32 Dose: 30 mg Clonidine HCl (Catapres) 0.1 mg PO Q8 [facility] Last Admin: 01/09/19 13:48 Dose: Not Given Diphenhydramine HCl (Benadryl) 25 mg PO TID PRN PRN Reason: Itching / Pruritus Insulin Glargine (Lantus) 10 unit SC Q12 [facility] Last Admin: 01/09/19 10:31 Dose: 10 units Isosorbide Mononitrate (Imdur Er) 30 mg PO DAILY [facility] Last Admin: 01/09/19 10:32 Dose: Not Given Levothyroxine Sodium (Synthroid) 50 mcg PO DAILY@0630 [facility] Last Admin: 01/09/19 06:32 Dose: 50 mcg Montelukast Sodium (Singulair) 10 mg PO DAILY [facility] Last Admin: 01/09/19 10:30 Dose: 10 mg Ranolazine (Ranexa) 500 mg PO BID [facility] Last Admin: 01/09/19 10:31 Dose: 500 mg Tramadol HCl (Ultram) 50 mg PO BID PRN PRN Reason: pain Last Admin: 01/08/19 05:59 Dose: 50 mg Vitamin B Complex/Vit C/Folic Acid (Nephro-Courtney) 1 tab PO DAILY [facility] Last Admin: 01/09/19 10:31 Dose: 1 tab - Labs Labs: 01/06/19 05:25 01/08/19 19:38 PT 12.9 SECONDS (9.7-12.2) H 01/06/19 05:07 INR 1.2 01/06/19 05:07 APTT 29.0 SECONDS (21-34) 01/06/19 05:07
== END 2019-01-09 17:40 | disposition home or self-care (01) ==
LOC: C.ER 02:53 → C.9E 06:12 → C.6T 15:47
PROVIDERS: ADMIT Internal Medicine; ATTEND Internal Medicine
DX: I13.2 Hypertensive heart and chronic kidney disease with heart failure and with stage 5 chronic kidney disease, or end stage renal disease (principal); I25.119 Atherosclerotic heart disease of native coronary artery with unspecified angina pectoris; J44.9 Chronic obstructive pulmonary disease, unspecified; I48.2 Chronic atrial fibrillation; I50.31 Acute diastolic (congestive) heart failure; J45.901 Unspecified asthma with (acute) exacerbation; E03.9 Hypothyroidism, unspecified; E11.22 Type 2 diabetes mellitus with diabetic chronic kidney disease; E78.00 Pure hypercholesterolemia, unspecified; D68.9 Coagulation defect, unspecified; F64.9 Gender identity disorder, unspecified; G30.9 Alzheimer's disease, unspecified; H54.7 Unspecified visual loss; N18.6 End stage renal disease; F02.80 Dementia in other diseases classified elsewhere, unspecified severity, without behavioral disturbance, psychotic disturbance, mood disturbance, and anxiety; Z86.711 Personal history of pulmonary embolism; Z86.73 Personal history of transient ischemic attack (TIA), and cerebral infarction without residual deficits; Z87.01 Personal history of pneumonia (recurrent); Z87.11 Personal history of peptic ulcer disease; Z87.442 Personal history of urinary calculi; Z87.891 Personal history of nicotine dependence; Z90.49 Acquired absence of other specified parts of digestive tract; Z95.1 Presence of aortocoronary bypass graft; Z95.5 Presence of coronary angioplasty implant and graft; Z99.2 Dependence on renal dialysis
CPT/HCPCS: 36415; 71045; 80048; 80053; 80162; 82803; 82948; 83735; 83880; 84439; 84443; 84484; 85025; 85610; 85730; 93005; 94640; 99285; G0257; G0378; J0610; J1644